=== PATIENT | male | born 1955 | race Caucasian/White ===

== ENCOUNTER 2017-05-10 13:00 | Outpatient (RCR) | payer MEDICARE, OTHER, SELFPAY ==
[2016-05-11 14:29] VITALS: BMI 43.3
[2017-04-10 01:15] VITALS: BP 100/60; PULSE 77; RESP 18; TEMP 36.6; O2SAT 95; BMI 44.4
--- NOTE | 2017-05-08 10:46 | PCM.PR.DAT ---
Dates of Coverage Times for Dates Of Coverage; All dates of coverage are for physician supervision/medical insurance clerk for during the times of 08:00 AM through 4:30 PM. Effective Dec 09, 2012 our hours will be changing to 8:00 to 4:30 on Monday, Monday and Monday. First Date of the Month: 05/11/17 Last Date of the Month: 06/07/17
--- NOTE | 2017-05-08 10:56 | PR.ITP_ITS ---
Exercise - 90-Day Assessment - Exercise Prescription Mode:: Treadmill, Airdyne, NuStep, Arm Ergometer Frequency (x/week): 3 Duration:: 30 Aerobic Exercise [30-60 min 3-7x/week]:: Met Target heart rate: 120 - 112-120 Max HR 122 Penelope MET Level:: 4 - Home Exercise Home Exercise?: Yes Frequency:: daily Time (minutes):: 30 - walking/uses oxygen Disease Management - 90-Day - Hypoxemia Reassessment: Demonstrates knowledge of O2 Rx at rest, Demonstrates knowledge of O2 Rx with exercise, Using O2 as prescribed, Has home O2 as prescribed, Uses port O2 as prescribed - Medications Medication list reviewed:: Yes Taking medications 100% of the time:: Met Medication reassessment: Yes Pt demonstrates correct technique timing for MDI - verbalizes proper order of medication use, Yes Pt demonstrates correct technique timing for DPI, Yes Pt demonstrates correct technique timing for NEB, Yes Pt demonstrates correct technique timing for spacer - demonstrastes proper use of spacer device - Bronchial Hygiene Bronchial Hygiene Plan: Yes Pt demonstrates correctly for effective cough - returned demonstration hill cough, Yes Pt demo correct for device - return demonstration use of SMI and PEP Therapy devices, Yes Pt demo correct for sputum management - returned demonstration use of acapella, Yes Pt demo correct for improved hydration - increased water intake with caution for edema, Yes Pt demo correct for hand hygiene - proper use of good hand hygiene, Yes Pt demo correct for verbalize when to call MD - verbalizes signs symptoms to notify physician Psychosocial - 90-Day - Assessment Depression reassess: Management of stress: Met, Management of depression: Met, Practicing interventions: Met Tobacco - 90-Day Assessment - Program Goals Tobacco Program Goals: Complete smoking cessation. Attend education classes. Improve Knowledge Test score - Stage of Change Stages of Change:: Action - Learning Barriers Learning Barriers: Participates in education, Change in behavior - positive behavioral changes, walking more, montioring signs symptoms of issues to prevent problems. - Family Support Do you have family support?: Yes - Tobacco Use Tobacco Use: Non-smoker Do you use smokeless tobacco?: No - Intervention Smoking Cessation Referral:: No Individual Education/Counseling:: No Education Schedule Given:: Yes - Education Gave Education Materials For:: Pulmonary Disease, Risk Factors, Breathing Techniques, Medical Compliance, Pulmonary A&P, Exacerbation Signs & Symptoms, Stress & Relaxation Nutrition/Wt Mgmt - 90-Day - Weight Management Weight Assessment:: Wt stable Weight:: 136.985 kg - Patient could benefit from Structured weight loss and Diabetic Support to better manage his diabetes. HE has been referred to [facility] Weight Goals Progress:: Goal met Patient Health Questionnaire 90-Day Re-eval Assessment 1. Little interest or pleasure in doing things: Not at all 2. Feeling down, depressed, or hopeless: Not at all 3. Trouble falling or staying asleep, or sleeping too much: Several days 4. Feeling tired or having little energy: Several days 5. Poor appetite or overeating: Several days 6. Feeling bad about yourself -- or that you are a failure or have let yourself or your family down: Not at all 7. Trouble concentrating on things, such as reading the newspaper or watching television: Not at all 8. Moving or speaking so slowly that other people could have noticed. Or the opposite - being so fidgety or restless that you have been moving around a lot more than usual: Not at all 9. Thoughts that you would be better off , or of hurting yourself in some way: Not at all How difficult have these problems made it for you to do your work, take care of things at home, or get along with other people?: Not difficult at all Total Score: 3 COPD Knowledge Test Discharge COPD is a lung disease that:: Makes it hard to breathe & gets worse over time In the [place] the term COPD describes 2 main lung conditions:: Emphysema & chronic bronchitis The most common lung irritant that causes COPD is:: Cigarette smoke Common signs and symptoms of COPD include:: An ongoing cough/cough that produces a large amount of mucus, & SOB If you have COPD, what steps can you take?: All of the above Swelling of the ankles is common in COPD:: False Fatigue [tiredness] is common in COPD:: True Wheezing is common in COPD:: True Crushing chest pain is common in COPD:: False Rapid weight loss is common in COPD:: False Breathlessness is a normal response to exercise: True Exercise should be avoided if it makes you short of breath: False All bronchodilators act within 10 minutes: True A spacer device increases the medication to the lungs: True Annual flu vaccine is recommended for pts w/lung disease: True COPD Knowledge Test Total Score:: 14 COPD Assessment Test [CAT] - Questions Never cough = 0, Cough all the time = 5: 2 No phlegm = 0, Chest full of phlegm = 5: 3 No chest tightness = 0, Chest very tight = 5: 2 No breathless w/exertion = 0, Very breathless w/exertion = 5: 4 No limitations w/activity = 0, Very limited w/activity = 5: 3 Confident leaving home = 0, Not at all confident = 5: 2 Sleep soundly = 0, Don't sleep soundly = 5: 3 Lots of energy = 0, No energy at all = 5: 3 Total CAT score:: 22 Self-Efficacy 90-Day Re-eval Assessment We would like to know how confident you are in doing certain activities. Please select your confidence level for:: Select your confidence level for the following using the scale 1-10 where 1 is not at all confident and 10 is totally confident. Your score is the average of all 6 responses. Fatigue: How confident are you that you can keep the fatigue caused by your disease from interfering with the things you want to do? Select Number: 8 Physical Discomfort or Pain: How confident are you that you can keep the physical discomfort or pain of your disease from interfering with the things you want to do? Select Number: 10 Emotional Distress: How confident are you that you can keep the emotional distress caused by your disease from interfering with the things you want to do? Select Number: 9 Other Symptoms or Health Problems: How confident are you that you can keep other symptoms or health problems from interfering with the things you want to do? Select Number: 10 Different Tasks and Activities: How confident are you that you can do the different tasks and activities needed to manage your health condition so as to reduce your need to see a doctor? Select Number: 10 Medication: How confident are you that you can do things other than just taking medication to reduce how much your illness affects your everyday life? Select Number: 10 Total Score:: 9 Nutrition Survey - Nutrition Survey Instructions Scoring Instructions: Scoring is as follows: Yes = 1 points. No = 0 point. Patient score that is >/=12 is considered to be at potential nutritional risk and could benefit from a referral to a registered dietitian. - Nutrition Survey Discharge Have you lost >10 lbs over the past 2 months without trying?: No Are you following a special diet at home for diabetes, low fat, or low salt?: Yes Are you interested in meeting with a dietitian for help understanding your diet? : Yes Do you eat less than 3 meals a day?: Yes Do you eat fatty meats (fernandez, sausage, ribs, etc), fried foods, desserts, large amounts of salad dressings, margarine, butter, or cheese most days?: Yes Do you have food allergies? [Enter types in comment field]: No Do you eat in restaurants more than 3 times a week?: No Do you season food with salt, seasoning salt, or garlic salt?: No Do you used canned, boxed, frozen meals, or soups, seasoning packets?: Yes Total Score:: 5
== END 2017-05-10 23:59 ==
LOC: PR 13:00
PROVIDERS: Family Provider Family Medicine Geriatric Medicine; PCP Family Medicine Geriatric Medicine; Visit Provider Internal Medicine Cardiovascular Disease
DX: J98.4 Other disorders of lung (principal); R06.02 Shortness of breath; Z95.5 Presence of coronary angioplasty implant and graft; E78.5 Hyperlipidemia, unspecified; I10 Essential (primary) hypertension; R06.09 Other forms of dyspnea; R04.2 Hemoptysis; R53.83 Other fatigue; G47.33 Obstructive sleep apnea (adult) (pediatric); E11.9 Type 2 diabetes mellitus without complications; R40.0 Somnolence; Z86.711 Personal history of pulmonary embolism
CPT/HCPCS: 97150; G0239

== ENCOUNTER 2017-05-18 14:51 | Outpatient (RCR) | payer MEDICARE, OTHER, SELFPAY ==
[2016-05-11 14:29] VITALS: BMI 43.3
== END 2017-06-07 23:59 ==
LOC: DC 14:51
PROVIDERS: Family Provider Family Medicine Geriatric Medicine; PCP Family Medicine Geriatric Medicine; Visit Provider Internal Medicine Cardiovascular Disease
DX: E11.9 Type 2 diabetes mellitus without complications (principal); Z71.3 Dietary counseling and surveillance
CPT/HCPCS: G0108

== ENCOUNTER → 2017-06-05 14:55 | Outpatient (CLI) | payer MEDICARE, OTHER, SELFPAY ==
[2016-05-11 14:29] VITALS: BMI 43.3
[2017-06-05 15:43] LABS: Absolute Lymphocyte Count 0.72 X10^3/ul (0.83-4.51); Absolute Neutrophil Count 5.2 X10^3/uL (2.0-7.7); Basophil# 0.02 X10^3/uL; Basophil% 0.3 % (0-1); Eosinophil# 0.14 X10^3/uL; Hematocrit 41.4 % (40-54); Hemoglobin 12.4 g/dl (13.0-16.5); Lymphocyte # 0.72 X10^3/ul (4.0); Lymphocyte % 10.2 % (19-41); Mean Corpuscular Hgb 23.8 pg (27.0-32.0); Mean Corpuscular Volume 79.6 fL (80-94); Mean Platelet Vol. 8.8 fl (6.2-12.0); Monocyte# 0.97 X10^3/uL; Monocyte% 13.8 % (0-10); Neutrophil # 5.18 X10^3/uL (2.7-7.7); Neutrophil % 73.6 % (47-70); Platelet Count 310 K/mm3 (150-450); RBC Distribution Width CV 18.6 % (11.6-14.6); RBC Distribution Width SD 53.1 fl (35.1-43.9)
[2017-06-05 15:49] LABS: POSITIVE COUNT NO; POSITIVE DIFFERENTIAL NO; POSITIVE MORPHOLOGY NO
[2017-06-05 16:14] LABS: AST(SGOT) 48 U/L (15-37); Alanine Aminotransfer ALT/SGPT 70 U/L (16-61); Albumin, Serum 3.9 g/dL (3.2-5.0); Alkaline Phosphatase 58 U/L (45-117); Anion Gap 8 (5-15); BUN 26 mg/dL (7-18); BUN/Creat Ratio 23.6 RATIO (10-20); Calcium,Total 10.7 mg/dL (8.5-10.1); Chloride 98 mmol/L (98-107); EST Glomerular Filtration Rate 72 mL/min (>60); Est Glom Filt Rate - Afr Amer 88 mL/min (>60); Globulin 4.1 g/dL (2.2-4.2); Glucose 102 mg/dL (74-106); Potassium 3.1 mmol/L (3.5-5.1); Sodium Level 137 mmol/L (136-145)
== END ==
PROVIDERS: Family Provider Family Medicine Geriatric Medicine; PCP Family Medicine Geriatric Medicine
DX: Z01.818 Encounter for other preprocedural examination (principal); R09.81 Nasal congestion; R22.0 Localized swelling, mass and lump, head; J34.2 Deviated nasal septum; R43.8 Other disturbances of smell and taste
CPT/HCPCS: 36415; 80053; 85025; 85610; 85730

== ENCOUNTER → 2017-06-09 13:53 | Outpatient (CLI) | payer MEDICARE, OTHER, SELFPAY ==
[2016-05-11 14:29] VITALS: BMI 43.3
[2017-06-09 15:01] LABS: Anion Gap 7 (5-15); BUN 20 mg/dL (7-18); Calcium,Total 10.4 mg/dL (8.5-10.1); Chloride 103 mmol/L (98-107); Creatinine, Serum 1.05 mg/dL (0.70-1.30); EST Glomerular Filtration Rate 76 mL/min (>60); Est Glom Filt Rate - Afr Amer 93 mL/min (>60); Glucose 129 mg/dL (74-106); Potassium 4.1 mmol/L (3.5-5.1); Sodium Level 141 mmol/L (136-145)
== END ==
PROVIDERS: Family Provider Family Medicine Geriatric Medicine; PCP Family Medicine Geriatric Medicine; Visit Provider Physician Assistant Medical
DX: E87.6 Hypokalemia (principal)
CPT/HCPCS: 36415; 80048

== ENCOUNTER 2017-06-10 11:37 | Observation (INO) | payer MEDICARE, OTHER, SELFPAY ==
[2016-05-11 14:29] VITALS: BMI 43.3
[2017-06-10] VITALS (15 sets, daily range): BP systolic 134–143; BP diastolic 70–82; PULSE 69–79; RESP 13–22; TEMP 36.1–36.7; O2SAT 95–99; BMI 40.4; BMI 40.5; BMI 44.6
--- NOTE | 2017-06-10 11:59 | EKG12_ITS ---
Test Reason : CP Blood Pressure : / mmHG Vent. Rate : 078 BPM Atrial Rate : 078 BPM P-R Int : 192 ms QRS Dur : 094 ms QT Int : 376 ms P-R-T Axes : 036 033 062 degrees QTc Int : 428 ms Normal sinus rhythm Septal infarct , age undetermined Abnormal ECG Confirmed by BAILEE PIZANO, NII ([id number]), department editor PRAVEEN CAMPBELL ([id number]) on 06/13/2017 3:51:46 PM Referred By: MARGO Confirmed By:NII MOROCHO MD
--- NOTE | 2017-06-10 11:59 | RAD_ITS ---
STUDY: X-RAY CHEST REASON FOR EXAM: Male, 61 years old. Increased shortness of breath and chest pain starting this morning. TECHNIQUE: Single AP portable view of the chest. COMPARISON: January 18, 2017. FINDINGS: Cardiac monitoring leads are present. There is moderate elevation of the right hemidiaphragm. There are perihilar interstitial consolidations. There is no demonstrated pleural abnormality. There is mild cardiac enlargement. Normal mediastinum and sue. There is prominence of the pulmonary hilar arteries with peripheral pulmonary vascular congestion. There is atherosclerotic calcification of the aortic arch with tortuosity. There is demineralization of the osseous structures. Normal visualized ribs, clavicles, and shoulders. There is no demonstrated abnormality of the visualized soft tissue structures of the upper abdomen. RAD/Chest 1 View (Portable) IMPRESSION: Mild cardiomegaly and pulmonary congestion. Electronically Signed: Susan Loera MD at 12:38 EST , Service support ,
--- NOTE | 2017-06-10 12:01 | ED.RN ---
[facility] [place] CONTACTED FOR HOME MEDICATION LIST
[2017-06-10] MEDS: Ipratropium/Albuterol Sulfate 3 ML AMPUL.NEB INHALATION (12:11)
[2017-06-10] MEDS: Aspirin 81 MG TAB.CHEW 324 MG PO (12:16)
[2017-06-10 12:36] LABS: Absolute Lymphocyte Count 1.52 X10^3/ul (0.83-4.51); Basophil# 0.02 X10^3/uL; Basophil% 0.2 % (0-1); Eosinophil# 0.18 X10^3/uL; Hematocrit 40.6 % (40-54); Lymphocyte # 1.52 X10^3/ul (4.0); Lymphocyte % 17.3 % (19-41); Mean Corp Hgb Conc 29.6 g/gl (32-36); Mean Corpuscular Hgb 24.3 pg (27.0-32.0); Mean Corpuscular Volume 82.4 fL (80-94); Mean Platelet Vol. 9.1 fl (6.2-12.0); Monocyte# 1.04 X10^3/uL; Monocyte% 11.8 % (0-10); Neutrophil # 6.02 X10^3/uL (2.7-7.7); Neutrophil % 68.4 % (47-70); Platelet Count 349 K/mm3 (150-450); RBC Distribution Width CV 19.3 % (11.6-14.6); Red Blood Count 4.93 M/mm3 (4.6-6.2); White Blood Count 8.8 K/mm3 (4.4-11.0)
[2017-06-10 12:37] LABS: POSITIVE COUNT NO; POSITIVE DIFFERENTIAL NO; POSITIVE MORPHOLOGY NO
[2017-06-10 12:44] LABS: D-Dimer Quantitative (DVT/PE) 0.33 FEU/ug/m (0.27-0.49)
[2017-06-10 12:56] LABS: Anion Gap 7 (5-15); BUN 20 mg/dL (7-18); Calcium,Total 9.8 mg/dL (8.5-10.1); Chloride 104 mmol/L (98-107); Creatinine, Serum 0.95 mg/dL (0.70-1.30); EST Glomerular Filtration Rate 86 mL/min (>60); Est Glom Filt Rate - Afr Amer 104 mL/min (>60); Estimated Creatinine Clearance 85.38 ml/min; Glucose 47 mg/dL (74-106); Potassium 3.6 mmol/L (3.5-5.1); Sodium Level 140 mmol/L (136-145)
[2017-06-10 13:54] LABS: BNP,B-Type NATRIURETIC PEPTIDE 116.6 pg/mL (0-100)
--- NOTE | 2017-06-10 14:30 | ED.DCSUM_ITS ---
- ER Visit Summary Date of Service: 06/10/17 Chief Complaint: [Chest pain and shortness of breath] History of Present Illness: The patient is a 61 M [presents to the emergency department with symptoms of chest pain shortness of breath that started around 5 :30 AM. Patient states that he started getting a smell of cigarettes coming from another apartment and he thinks that may have triggered it possibly. Patient states that he used an inhaler and did not get much relief. Patient then took 2 nitro which did not seem to help a whole lot and that is when he decided to come in and get evaluated. Patient has a history of a cardiac stent about 6 months ago. Patient also has a history of COPD and he has had history of PE in the past. Patient states that he scheduled to have a biopsy for some sort of a sinus mass to be done in 2 days and has been off of his Plavix since 23 May in anticipation of surgery which has been pushed back due to insurance reasons. Patient denies any recent travel or surgery. He denies any fever.] Physical Examination: [HEENT-PERRLA, EOMI. Cranial nerves II through XII grossly intact. TMs clear. Mucous membranes moist. No adenopathy. Cardiovascular-regular rate and rhythm without murmur or ectopy Lungs-diminished breath sounds bilaterally with some faint expiratory wheezes noted bilaterally. No accessory muscle use or retractions. Abdomen-normoactive bowel sounds, soft, nontender, no rebound or rigidity, no peritoneal signs. Extremities-intact ?4, normal range of motion, normal pulses, atraumatic] Test Results: [EKG obtained on arrival showed a sinus rhythm with a ventricular rate 78 bpm with an old septal infarct noted. When compared with prior EKG from January 2017 no new changes noted. CBC with differential was normal. Chemistries unremarkable. Troponin less than 0.02. D-dimer is normal 0.33. BNP was slightly elevated 116. Chest x-ray showed some cardiomegaly with some mild pulmonary congestion.] Emergency Department Course and Treatment: [Initially patient received aspirin on arrival emergency department and was given a DuoNeb aerosol. Patient started on Solu-Medrol 125 mg IV.] Treatment Plan: [Patient's pressure initially improved with the breathing treatment but then returned and at this point case was discussed with hospitalist evaluate patient for admission] Disposition: [Admit] Impression: [Chest pain-rule out acute coronary syndrome COPD exacerbation] This note was generated with [employer] dictation software. It may contain incorrect words, spelling, and punctuation that were not noted in review of the chart prior to signing ED Disposition - Plan for ED Patient: Chief Complaint: Chest Pain Referrals: Nicho Beth Chi, MD [Primary Care Provider] -
[2017-06-10] MEDS: MethylPREDNISolone 125 MG/2 ML Vial IV (14:47)
--- NOTE | 2017-06-10 14:50 | NURSING ---
BS LOW ON LABS. PT PERSPIRING AND BLE CRAMPING PER PT. GIVEN JUICE ANS SNACK WITH PROTEIN
--- NOTE | 2017-06-10 15:10 | PCM.HP.STD ---
Problem List (1) Chronic hypoxemic respiratory failure Status: Chronic (2) FAVIAN (obstructive sleep apnea) Status: Chronic (3) History of pulmonary embolism Status: Resolved (4) Acquired left ventricular hypertrophy Status: Chronic (5) Hypertriglyceridemia Status: Chronic (6) Morbid obesity with BMI of 40.0-44.9, adult Status: Chronic (7) Status post insertion of drug-eluting stent into left anterior descending (LAD) artery Status: Chronic (8) CAD (coronary artery disease), kashia coronary artery Status: Chronic Qualifiers: (9) Type 2 diabetes mellitus Status: Chronic Qualifiers: (10) Hypertension Status: Chronic Qualifiers: (11) Hyperlipidemia Status: Chronic Qualifiers: (12) History of DVT (deep vein thrombosis) Status: Chronic (13) Osteoarthritis Status: Chronic Qualifiers: History of Present Illness Date of Admission: 06/10/17 Chief Complaint: Shortness of breath, chest tightness The patient is a 61 year old M who presents with shortness of breath and chest tightness which began early this morning around 5 AM. Patient states he has been off of one of his diuretics for the past few weeks due to low potassium. He states he has gained approximately 15 pounds over the past few weeks. He has increased lower extremity edema. Patient also states his neighboring apartment has been smoking which travels inside his apartment and he feels has contributed to his shortness of breath. Patient is scheduled for sinus biopsy 06/12/2017 with plans for further surgical intervention for sinus mass 06/15/2017. He has been off of his Plavix since 05/22/2017. Patient follows with Dr. Gracia who he states is aware that he has been off of Plavix during this time. He has continued to take aspirin. Patient denies recent illness. Denies cough, wheezing. Denies pain radiation. Denies dizziness, lightheadedness, palpitations. Patient has a past medical history of DVT/PE, osteoarthritis, hyperlipidemia, hypertension, type 2 diabetes mellitus, CAD status post PCI, morbid obesity, chronic hypoxic respiratory failure secondary to restrictive lung disease requiring intermittent home oxygen supplementation, obstructive sleep apnea, depression. Patient follows with Dr. Hawkins for FAVIAN/restrictive lung disease. Past Medical History Past Medical History (Chronic Problems): Chronic Problems (Last Reviewed 04/12/17 @ 14:09 by Phuong Rankin) Chronic hypoxemic respiratory failure (Chronic) FAVIAN (obstructive sleep apnea) (Chronic) Dyspnea on exertion (Chronic) Acquired left ventricular hypertrophy (Chronic) Abnormal chest xray (Chronic) Chest discomfort (Chronic) Near syncope (Chronic) Overweight (Chronic) Hypoxia (Chronic) Hypertriglyceridemia (Chronic) Morbid obesity with BMI of 40.0-44.9, adult (Chronic) Status post insertion of drug-eluting stent into left anterior descending (LAD) artery (Chronic) CAD (coronary artery disease), kashia coronary artery (Chronic) Type 2 diabetes mellitus (Chronic) Hypertension (Chronic) Hyperlipidemia (Chronic) History of DVT (deep vein thrombosis) (Chronic) Osteoarthritis (Chronic) Allergies No Known Allergies Allergy (Verified 06/10/17 11:37) Home Medications: Ambulatory Orders Medication Instructions Recorded Amlodipine [Norvasc] 10 mg PO DAILY 01/07/15 Aspirin [Aspirin, Baby] 81 mg PO DAILY@0800 01/07/15 Atorvastatin Calcium [Lipitor] 80 mg PO QHS 01/07/15 Furosemide [Lasix] 40 mg PO BID 01/07/15 Glimepiride [Amaryl] 4 mg PO BID 01/07/15 HydrALAZINE [Apresoline] 25 mg PO TID 01/07/15 Metformin HCl [Glucophage] 1,000 mg PO BIDCM 01/07/15 Metoprolol(XL)Succ [Toprol Xl 100 mg PO BID 01/07/15 (Beta Kenyon)] Multivitamins,Therapeutic 1 tab PO DAILY 05/10/16 [Multivitamin] metolazone 2.5 mg tablet 2.5 mg PO SUTH 05/10/16 Albuterol IH (ProAir) [Proair Hfa] 2 puff INHALATION Q4H PRN PRN 01/18/17 Gemfibrozil [Lopid] 600 mg PO BIDAC 01/18/17 Lorazepam [Ativan] 0.5 mg PO DAILY PRN PRN 01/18/17 Paroxetine HCl [Paxil] 40 mg PO QHS 01/18/17 Ranolazine [Ranexa] 500 mg PO BID 01/18/17 Nitroglycerin [Nitrostat] 0.4 mg SUBLINGUAL Q5M PRN #10 tab 01/19/17 Oxymetazoline 0.05% [Afrin (BKC)] 1 spray NASAL BID #1 spray.btl 02/05/17 Sodium Chloride [Saline Nasal Mist] 1 spray NS TID #2 mist 02/05/17 clopidogrel 75 mg tablet 75 mg PO DAILY #90 tab 05/09/17 potassium chloride ER 20 mEq 40 meq PO TID tab 06/06/17 tablet,extended release Citalopram Hydrobromide 20 mg PO DAILY 06/10/17 [Citalopram HBr] Dapagliflozin Propanediol [Farxiga] 10 mg PO DAILY 06/10/17 Insulin Regular, Human [Humulin R 200 unit SQ BID 06/10/17 U-500 Kwikpen] Sodium Chloride 0.65% [Lutz Nasal 1 spray NASAL PRN PRN 06/10/17 [place]] Surgical History: - - PCI, bilateral total hip repair, Achilles tendon repair left side, left arthroscopic knee surgery, ex lap with bowel resection secondary to perforation, tonsillectomy, appendectomy. Psychiatric History: Anxiety, Depression Lives: Alone Smoking Status: Never smoker Tobacco Use: Non-smoker Alcohol: Sober Drugs: None - *Family History Maternal History Items: Cancer - Colon cancer., Diabetes, High Cholesterol, Heart Disease, Hypertension Paternal History Items: Diabetes, High Cholesterol, Heart Disease, Hypertension Review of Systems Constitutional: Denies: Chills, Fever, Weight Change HEENT: Reports: Sinus Congestion, Sinus Drainage Cardiovascular: Reports: Chest Tightness, Edema, Orthopnea. Denies: Chest Pain, Palpitations, Syncope Respiratory: Reports: Shortness of Breath. Denies: Cough, Sputum production, Wheezing Gastrointestinal: Denies: Abdominal Pain, Diarrhea, Nausea, Vomiting Genitourinary: Denies: Dysuria Musculoskeletal: Denies: Joint Pain, Joint Tenderness Skin: Denies: Rash, Wounds Neurological: Denies: Numbness, Tingling, Focal weakness Psychiatric: Reports: Depression Hematologic/ Lymphatic: Denies: Easy Bruising, Easy Bleeding VTE Information - Inpt Only VTE Present on Admission: No VTE Mechan Device Prophylaxis: None VTE Pharm Prophylaxis ordered?: Yes - Physical Exam General: Alert, Oriented x3, Cooperative, No apparent distress HEENT: Atraumatic, PERRLA, EOMI, Normocephalic Neck: Supple, No JVD, Negative Carotid Bruits Lungs: Diminished, - - Fine crackles bilateral bases Cardiovascular: Regular rate, Regular Rhythm, Normal S1, Normal S2, No murmurs Abdomen: Bowel Sounds Present, Soft, Non Tender, Non-Distended, Obese Extremities: No clubbing, No cyanosis, Edema - +2 BLLE Skin: No rashes, No breakdown Musculoskeletal: No Tenderness to Palpation of Joints or Extremities Neurological: Cranial nerves II-XII grossly intact, Neuro grossly intact Psych/Mental Status: Normal Affect, Appropriate Vital Signs Temp Pulse Resp BP Pulse Ox 97.0 F L 70 14 141/81 H 96 06/10/17 14:55 06/10/17 15:01 06/10/17 15:01 06/10/17 15:01 06/10/17 15:01 Finger Stick Blood Glucose 49 Assessment/Plan 1. Acute on chronic diastolic CHF- Echocardiogram 09/30/2015 showed an EF of 65%, stage I diastolic dysfunction, RVSP 22 mmHg. Repeat echocardiogram. Cycle enzymes. BNP only mildly elevated, 116. CXR showed mild pulmonary congestion. Patient has +2 pitting BLLE. States he has gained about 15 lbs in the past few weeks. Strict I&O. Daily weight. Lasix 40mg IV Q8. EKG on admission without evidence of ischemia. Repeat EKG in a.m. 2. CAD status post PCI to the mid LAD May [address] Gracia. Patient follows with Dr. Gracia as outpatient. Continue aspirin, statin, beta-kenyon. Patient recently stopped Plavix due to plans for sinus intervention surgery next week. Per patient, Dr. Gracia aware of temporarily being off of plavix. Patient had a stress echo 01/18/2017 which showed no evidence of ischemia. 3. Type 2 diabetes mellitus-hold oral regimen. Hemoglobin A1c 02/02/2017 was 8.7%. Accu-Cheks before meals at bedtime. Continue Humulin R regimen. 4. Hypertension-stable, continue current regimen including amlodipine, Lasix, metoprolol. 5. Hyperlipidemia-continue atorvastatin and gemfibrozil. 6. History of PE/DVT-previously on Coumadin therapy which was discontinued January, due to significant epistaxis. Continue aspirin, Plavix. 7. Restrictive lung disease/FAVIAN/Chronic hypoxic respiratory failure-follows with Dr. Hawkins. PFTs 10/2016. On supplemental oxygen intermittently at home. States he is compliant with CPAP at bedtime. 8. OA- PT/OT. 9. Depression-continue home regimen of citalopram and fluoxetine. 10. Morbid obesity-nutrition consult. Diet and lifestyle modifications encouraged. DVT prophylaxis-Lovenox subcu. This patient was seen by MAVERICK Bryan under the supervision of Dr. Gregory.
--- NOTE | 2017-06-10 15:20 | HP.PCM_ITS ---
Problem List (1) Chronic hypoxemic respiratory failure Status: Chronic (2) FAVIAN (obstructive sleep apnea) Status: Chronic (3) History of pulmonary embolism Status: Resolved (4) Acquired left ventricular hypertrophy Status: Chronic (5) Hypertriglyceridemia Status: Chronic (6) Morbid obesity with BMI of 40.0-44.9, adult Status: Chronic (7) Status post insertion of drug-eluting stent into left anterior descending ( LAD) artery Status: Chronic (8) CAD (coronary artery disease), [place] coronary artery Status: Chronic Qualifiers: (9) Type 2 diabetes mellitus Status: Chronic Qualifiers: (10) Hypertension Status: Chronic Qualifiers: (11) Hyperlipidemia Status: Chronic Qualifiers: (12) History of DVT (deep vein thrombosis) Status: Chronic (13) Osteoarthritis Status: Chronic Qualifiers: History of Present Illness Date of Admission: 06/10/17 Chief Complaint: Shortness of breath, chest tightness The patient is a 61 year old M who presents with shortness of breath and chest tightness which began early this morning around 5 AM. Patient states he has been off of one of his diuretics for the past few weeks due to low potassium. He states he has gained approximately 15 pounds over the past few weeks. He has increased lower extremity edema. Patient also states his neighboring apartment has been smoking which travels inside his apartment and he feels has contributed to his shortness of breath. Patient is scheduled for sinus biopsy 06/12/2017 with plans for further surgical intervention for sinus mass 06/15. He has been off of his Plavix since 05/22/2017. Patient follows with Dr. Gracia who he states is aware that he has been off of Plavix during this time. He has continued to take aspirin. Patient denies recent illness. Denies cough, wheezing. Denies pain radiation. Denies dizziness, lightheadedness, palpitations. Patient has a past medical history of DVT/PE, osteoarthritis, hyperlipidemia, hypertension, type 2 diabetes mellitus, CAD status post PCI, morbid obesity, chronic hypoxic respiratory failure secondary to restrictive lung disease requiring intermittent home oxygen supplementation, obstructive sleep apnea, depression. Patient follows with Dr. Hawkins for FAVIAN/ restrictive lung disease. Past Medical History Past Medical History (Chronic Problems): Chronic Problems (Last Reviewed 04/12/17 @ 14:09 by Phuong Rankin) Chronic hypoxemic respiratory failure (Chronic) FAVIAN (obstructive sleep apnea) (Chronic) Dyspnea on exertion (Chronic) Acquired left ventricular hypertrophy (Chronic) Abnormal chest xray (Chronic) Chest discomfort (Chronic) Near syncope (Chronic) Overweight (Chronic) Hypoxia (Chronic) Hypertriglyceridemia (Chronic) Morbid obesity with BMI of 40.0-44.9, adult (Chronic) Status post insertion of drug-eluting stent into left anterior descending (LAD) artery (Chronic) CAD (coronary artery disease), [place] coronary artery (Chronic) Type 2 diabetes mellitus (Chronic) Hypertension (Chronic) Hyperlipidemia (Chronic) History of DVT (deep vein thrombosis) (Chronic) Osteoarthritis (Chronic) Allergies No Known Allergies Allergy (Verified 06/10/17 11:37) Home Medications: Ambulatory Orders Medication Instructions Recorded Amlodipine [Norvasc] 10 mg PO DAILY 01/07/15 Aspirin [Aspirin, Baby] 81 mg PO DAILY@0800 01/07/15 Atorvastatin Calcium [Lipitor] 80 mg PO QHS 01/07/15 Furosemide [Lasix] 40 mg PO BID 01/07/15 Glimepiride [Amaryl] 4 mg PO BID 01/07/15 HydrALAZINE [Apresoline] 25 mg PO TID 01/07/15 Metformin HCl [Glucophage] 1,000 mg PO BIDCM 01/07/15 Metoprolol(XL)Succ [Toprol Xl 100 mg PO BID 01/07/15 (Beta [place])] Multivitamins,Therapeutic 1 tab PO DAILY 05/10/16 [Multivitamin] metolazone 2.5 mg tablet 2.5 mg PO SUTH 05/10/16 Albuterol IH (ProAir) [Proair Hfa] 2 puff INHALATION Q4H PRN PRN 01/18/17 Gemfibrozil [Lopid] 600 mg PO BIDAC 01/18/17 Lorazepam [Ativan] 0.5 mg PO DAILY PRN PRN 01/18/17 Paroxetine HCl [Paxil] 40 mg PO QHS 01/18/17 Ranolazine [Ranexa] 500 mg PO BID 01/18/17 Nitroglycerin [Nitrostat] 0.4 mg SUBLINGUAL Q5M PRN #10 tab 01/19/17 Oxymetazoline 0.05% [Afrin (BKC)] 1 spray NASAL BID #1 spray.btl 02/05/17 Sodium Chloride [Saline Nasal Mist] 1 spray NS TID #2 mist 02/05/17 clopidogrel 75 mg tablet 75 mg PO DAILY #90 tab 05/09/17 potassium chloride ER 20 mEq 40 meq PO TID tab 06/06/17 tablet,extended release Citalopram Hydrobromide 20 mg PO DAILY 06/10/17 [Citalopram HBr] Dapagliflozin Propanediol [Farxiga] 10 mg PO DAILY 06/10/17 Insulin Regular, Human [Humulin R 200 unit SQ BID 06/10/17 U-500 Kwikpen] Sodium Chloride 0.65% [[place] Nasal 1 spray NASAL PRN PRN 06/10/17 [place]] Surgical History: - - PCI, bilateral total hip repair, Achilles tendon repair left side, left arthroscopic knee surgery, ex lap with bowel resection secondary to perforation, tonsillectomy, appendectomy. Psychiatric History: Anxiety, Depression Lives: Alone Smoking Status: Never smoker Tobacco Use: Non-smoker Alcohol: Sober Drugs: None - *Family History Maternal History Items: Cancer - Colon cancer., Diabetes, High Cholesterol, Heart Disease , Hypertension Paternal History Items: Diabetes, High Cholesterol, Heart Disease, Hypertension Review of Systems Constitutional: Denies: Chills, Fever, Weight Change HEENT: Reports: Sinus Congestion, Sinus Drainage Cardiovascular: Reports: Chest Tightness, Edema, Orthopnea. Denies: Chest Pain , Palpitations, Syncope Respiratory: Reports: Shortness of Breath. Denies: Cough, Sputum production, Wheezing Gastrointestinal: Denies: Abdominal Pain, Diarrhea, Nausea, Vomiting Genitourinary: Denies: Dysuria Musculoskeletal: Denies: Joint Pain, Joint Tenderness Skin: Denies: Rash, Wounds Neurological: Denies: Numbness, Tingling, Focal weakness Psychiatric: Reports: Depression Hematologic/ Lymphatic: Denies: Easy Bruising, Easy Bleeding VTE Information - Inpt Only VTE Present on Admission: No VTE Mechan Device Prophylaxis: None VTE Pharm Prophylaxis ordered?: Yes - Physical Exam General: Alert, Oriented x3, Cooperative, No apparent distress HEENT: Atraumatic, PERRLA, EOMI, Normocephalic Neck: Supple, No JVD, Negative Carotid Bruits Lungs: Diminished, - - Fine crackles bilateral bases Cardiovascular: Regular rate, Regular Rhythm, Normal S1, Normal S2, No murmurs Abdomen: Bowel Sounds Present, Soft, Non Tender, Non-Distended, Obese Extremities: No clubbing, No cyanosis, Edema - +2 BLLE Skin: No rashes, No breakdown Musculoskeletal: No Tenderness to Palpation of Joints or Extremities Neurological: Cranial nerves II-XII grossly intact, Neuro grossly intact Psych/Mental Status: Normal Affect, Appropriate Vital Signs Temp Pulse Resp BP Pulse Ox 97.0 F L 70 14 141/81 H 96 06/10/17 14:55 06/10/17 15:01 06/10/17 15:01 06/10/17 15:01 06/10/17 15:01 Finger Stick Blood Glucose 49 Assessment/Plan 1. Acute on chronic diastolic CHF- Echocardiogram 09/30/2015 showed an EF of 65% , stage I diastolic dysfunction, RVSP 22 mmHg. Repeat echocardiogram. Cycle enzymes. BNP only mildly elevated, 116. CXR showed mild pulmonary congestion. Patient has +2 pitting BLLE. States he has gained about 15 lbs in the past few weeks. Strict I&O. Daily weight. Lasix 40mg IV Q8. EKG on admission without evidence of ischemia. Repeat EKG in a.m. 2. CAD status post PCI to the mid LAD May [address] Gracia. Patient follows with Dr. Gracia as outpatient. Continue aspirin, statin, beta-kenyon. Patient recently stopped Plavix due to plans for sinus intervention surgery next week. Per patient, Dr. Gracia aware of temporarily being off of plavix. Patient had a stress echo 01/18/2017 which showed no evidence of ischemia. 3. Type 2 diabetes mellitus-hold oral regimen. Hemoglobin A1c 02/02/2017 was 8.7%. Accu-Cheks before meals at bedtime. Continue Humulin R regimen. 4. Hypertension-stable, continue current regimen including amlodipine, Lasix, metoprolol. 5. Hyperlipidemia-continue atorvastatin and gemfibrozil. 6. History of PE/DVT-previously on Coumadin therapy which was discontinued January, due to significant epistaxis. Continue aspirin, Plavix. 7. Restrictive lung disease/FAVIAN/Chronic hypoxic respiratory failure-follows with Dr. Hawkins. PFTs 10/2016. On supplemental oxygen intermittently at home. States he is compliant with CPAP at bedtime. 8. OA- PT/OT. 9. Depression-continue home regimen of citalopram and fluoxetine. 10. Morbid obesity-nutrition consult. Diet and lifestyle modifications encouraged. DVT prophylaxis-Lovenox subcu. This patient was seen by MAVERICK Bryan under the supervision of Dr. Gregory.
--- NOTE | 2017-06-10 15:26 | NURSING ---
BS 70. PT ASYMPTOMATIC
[2017-06-10 15:36] LABS: Bedside Glucose 70 mg/dL (70-110)
[2017-06-10 15:36] LABS: Bedside Glucose 49 mg/dL (70-110)
[2017-06-10] MEDS: Gemfibrozil 600 MG Tablet PO (17:32)
[2017-06-10] MEDS: 0.9% NaCl Peripheral Flush Adult/Peds IV (21:18)
[2017-06-10] MEDS: Oxymetazoline 0.05% 1 SPRAY SPRAY.BTL NASAL (21:18)
[2017-06-10] MEDS: Sodium Chloride 0.65% 1 SPRAY SPRAY.BTL NASAL (21:18)
[2017-06-10] MEDS: Atorvastatin Calcium 80 MG Tablet PO (21:20)
[2017-06-10] MEDS: Furosemide 40 MG/4 ML Vial IV (21:20)
[2017-06-10] MEDS: Ranolazine 500 MG Tablet PO (21:21)
[2017-06-10] MEDS: Metoprolol(XL)Succ 100 MG Tablet PO (21:21)
[2017-06-10 21:36] LABS: Bedside Glucose 211 mg/dL (70-110)
[2017-06-11] VITALS (13 sets, daily range): BP systolic 124–136; BP diastolic 60–73; PULSE 68–75; RESP 18–20; TEMP 36.6–36.8; O2SAT 94–99
[2017-06-11 03:49] LABS: Anion Gap 10 (5-15); BUN 22 mg/dL (7-18); BUN/Creat Ratio 20.2 RATIO (10-20); Calcium,Total 9.9 mg/dL (8.5-10.1); Chloride 103 mmol/L (98-107); Creatinine, Serum 1.09 mg/dL (0.70-1.30); EST Glomerular Filtration Rate 73 mL/min (>60); Est Glom Filt Rate - Afr Amer 89 mL/min (>60); Estimated Creatinine Clearance 74.41 ml/min; Glucose 225 mg/dL (74-106); Potassium 4.4 mmol/L (3.5-5.1); Sodium Level 140 mmol/L (136-145)
[2017-06-11] MEDS: Enoxaparin 40 MG/0.4 ML Syringe SC (05:07)
[2017-06-11] MEDS: 0.9% NaCl Peripheral Flush Adult/Peds IV (05:07)
[2017-06-11] MEDS: Furosemide 40 MG/4 ML Vial IV ×2 (05:07→13:23)
[2017-06-11] MEDS: Sodium Chloride 0.65% 1 SPRAY SPRAY.BTL NASAL (05:07)
--- NOTE | 2017-06-11 05:55 | EKG12_ITS ---
Test Reason : AM EKG Blood Pressure : / mmHG Vent. Rate : 073 BPM Atrial Rate : 073 BPM P-R Int : 228 ms QRS Dur : 094 ms QT Int : 382 ms P-R-T Axes : 052 038 038 degrees QTc Int : 420 ms Sinus rhythm with 1st degree A-V block with occasional Premature ventricular complexes Septal infarct , age undetermined Abnormal ECG When compared with ECG of 10-JUN-2017 11:39, MANUAL COMPARISON REQUIRED, DATA IS UNCONFIRMED Confirmed by BAILEE PIZANO, NII ([id number]), acquisitions editor PRAVEEN CAMPBELL ([id number]) on 06/14/2017 1:45:38 PM Referred By: ALVARADO Confirmed By:NII MOROCHO MD
[2017-06-11 06:41] LABS: Bedside Glucose 199 mg/dL (70-110)
[2017-06-11] MEDS: Gemfibrozil 600 MG Tablet PO (09:21)
[2017-06-11] MEDS: Multivitamins,Therapeutic Tablet 1 TABLET PO (09:22)
[2017-06-11] MEDS: Aspirin 81 MG TAB.CHEW PO (09:22)
[2017-06-11] MEDS: Oxymetazoline 0.05% 1 SPRAY SPRAY.BTL NASAL (09:24)
[2017-06-11] MEDS: Citalopram 20 MG Tablet PO (09:25)
[2017-06-11] MEDS: Metoprolol(XL)Succ 100 MG Tablet PO (09:25)
[2017-06-11] MEDS: Ranolazine 500 MG Tablet PO (09:25)
[2017-06-11] MEDS: Metolazone 2.5 MG Tablet PO (09:27)
[2017-06-11] MEDS: amLODIPine 10 MG Tablet PO (11:16)
[2017-06-11 11:21] LABS: Bedside Glucose 255 mg/dL (70-110)
--- NOTE | 2017-06-11 13:17 | PCM.DC ---
You will use the following diet at home:: Calorie/Carbohydrate Controlled (specify 1200, 1400, etc), Cardiac Discharge Activity: Return to Normal Activity Call your doctor if you observe: Shortness of breath, Dizziness, Fainting spells, Chest pain, Increased palpitations (irregular heartbeat) Additional Instructions: You will take lasix 80mg twice daily for 3 days (06/12/17-06/14/17) and then resume your home regimen of lasix 40mg twice daily. Continue home metolazone regimen which you were given this morning. You will need to call Dr. Gracia office after recovery from your surgery to follow up with him or Stephanie in the office. Continue supplemental oxygen at home to maintain O2 at or above 90%. Keep lower extremities wrapped with LUCIAN wraps and elevate while sitting. Continue to hold plavix prior to surgery and resume as soon as cleared by surgery. Allergies/Adverse Reactions: Allergies No Known Allergies Allergy (Verified 06/10/17 11:37) Medications to take at Discharge Amlodipine [Norvasc] 10 mg PO DAILY 01/07/15 Aspirin [Aspirin, Baby] 81 mg PO DAILY@0800 01/07/15 Atorvastatin Calcium [Lipitor] 80 mg PO QHS 01/07/15 Furosemide [Lasix] 40 mg PO BID 01/07/15 Glimepiride [Amaryl] 4 mg PO BID 01/07/15 HydrALAZINE [Apresoline] 25 mg PO TID 01/07/15 Metformin HCl [Glucophage] 1,000 mg PO BIDCM 01/07/15 Metoprolol(XL)Succ [Toprol Xl (Beta [place])] 100 mg PO BID 01/07/15 Multivitamins,Therapeutic [Multivitamin] 1 tab PO DAILY 05/10/16 metolazone 2.5 mg tablet 2.5 mg PO SUTH 05/10/16 Albuterol IH (ProAir) [Proair Hfa] 2 puff INHALATION Q4H PRN PRN 01/18/17 Gemfibrozil [Lopid] 600 mg PO BIDAC 01/18/17 Lorazepam [Ativan] 0.5 mg PO DAILY PRN PRN 01/18/17 Paroxetine HCl [Paxil] 40 mg PO QHS 01/18/17 Ranolazine [Ranexa] 500 mg PO BID 01/18/17 Nitroglycerin [Nitrostat] 0.4 mg SUBLINGUAL Q5M PRN #10 tab 01/19/17 Oxymetazoline 0.05% [Afrin (BKC)] 1 spray NASAL BID #1 spray.btl 02/05/17 Sodium Chloride [Saline Nasal Mist] 1 spray NS TID #2 mist 02/05/17 clopidogrel 75 mg tablet 75 mg PO DAILY #90 tab 05/09/17 potassium chloride ER 20 mEq tablet,extended release 40 meq PO TID tab 06/06/17 Citalopram Hydrobromide [Citalopram HBr] 20 mg PO DAILY 06/10/17 Dapagliflozin Propanediol [Farxiga] 10 mg PO DAILY 06/10/17 Insulin Regular, Human [Humulin R U-500 Kwikpen] 200 unit SQ BID 06/10/17 Sodium Chloride 0.65% [[place] Nasal [place]] 1 spray NASAL PRN PRN 06/10/17 Furosemide [Lasix] 80 mg PO BIDLX #6 tab 06/11/17 The following prescriptions were given: Furosemide [Lasix] 80 mg PO BIDLX #6 tab Primary Care Physician: Nicho Beth Chi, MD [Primary Care Provider] - Please follow up with your Primary Care Physician in: 1-2 Weeks Please Follow Up With: Harinder Gracia MD - May see PA/SUPERVISOR BEEHIVE KILN When: 1 Week Proposed Discharge Date: 06/11/17
--- NOTE | 2017-06-11 13:23 | DCINST_ITS ---
You will use the following diet at home:: Calorie/Carbohydrate Controlled ( specify 1200, 1400, etc), Cardiac Discharge Activity: Return to Normal Activity Call your doctor if you observe: Shortness of breath, Dizziness, Fainting spells , Chest pain, Increased palpitations (irregular heartbeat) Additional Instructions: You will take lasix 80mg twice daily for 3 days (06/12/17 -06/14/17) and then resume your home regimen of lasix 40mg twice daily. Continue home metolazone regimen which you were given this morning. You will need to call Dr. Gracia office after recovery from your surgery to follow up with him or Stephanie in the office. Continue supplemental oxygen at home to maintain O2 at or above 90%. Keep lower extremities wrapped with LUCIAN wraps and elevate while sitting. Continue to hold plavix prior to surgery and resume as soon as cleared by surgery. Allergies/Adverse Reactions: Allergies No Known Allergies Allergy (Verified 06/10/17 11:37) Medications to take at Discharge Amlodipine [Norvasc] 10 mg PO DAILY 01/07/15 Aspirin [Aspirin, Baby] 81 mg PO DAILY@0800 01/07/15 Atorvastatin Calcium [Lipitor] 80 mg PO QHS 01/07/15 Furosemide [Lasix] 40 mg PO BID 01/07/15 Glimepiride [Amaryl] 4 mg PO BID 01/07/15 HydrALAZINE [Apresoline] 25 mg PO TID 01/07/15 Metformin HCl [Glucophage] 1,000 mg PO BIDCM 01/07/15 Metoprolol(XL)Succ [Toprol Xl (Beta [place])] 100 mg PO BID 01/07/15 Multivitamins,Therapeutic [Multivitamin] 1 tab PO DAILY 05/10/16 metolazone 2.5 mg tablet 2.5 mg PO SUTH 05/10/16 Albuterol IH (ProAir) [Proair Hfa] 2 puff INHALATION Q4H PRN PRN 01/18/17 Gemfibrozil [Lopid] 600 mg PO BIDAC 01/18/17 Lorazepam [Ativan] 0.5 mg PO DAILY PRN PRN 01/18/17 Paroxetine HCl [Paxil] 40 mg PO QHS 01/18/17 Ranolazine [Ranexa] 500 mg PO BID 01/18/17 Nitroglycerin [Nitrostat] 0.4 mg SUBLINGUAL Q5M PRN #10 tab 01/19/17 Oxymetazoline 0.05% [Afrin (BKC)] 1 spray NASAL BID #1 spray.btl 02/05/17 Sodium Chloride [Saline Nasal Mist] 1 spray NS TID #2 mist 02/05/17 clopidogrel 75 mg tablet 75 mg PO DAILY #90 tab 05/09/17 potassium chloride ER 20 mEq tablet,extended release 40 meq PO TID tab Citalopram Hydrobromide [Citalopram HBr] 20 mg PO DAILY 06/10/17 Dapagliflozin Propanediol [Farxiga] 10 mg PO DAILY 06/10/17 Insulin Regular, Human [Humulin R U-500 Kwikpen] 200 unit SQ BID 06/10/17 Sodium Chloride 0.65% [[place] Nasal [place]] 1 spray NASAL PRN PRN 06/10/17 Furosemide [Lasix] 80 mg PO BIDLX #6 tab 06/11/17 The following prescriptions were given: Furosemide [Lasix] 80 mg PO BIDLX #6 tab Primary Care Physician: Nicho Beth Chi, MD [Primary Care Provider] - Please follow up with your Primary Care Physician in: 1-2 Weeks Please Follow Up With: Harinder Gracia MD - May see PA/SOFTWARE APPLICATIONS ENGINEER When: 1 Week Proposed Discharge Date: 06/11/17
--- NOTE | 2017-06-11 13:23 | PCM.DC.SUM ---
Discharge Date and Diagnosis Date of Admission: 06/10/17 Date of Discharge: 06/11/17 - Primary Discharge Diagnosis 1. Acute on chronic diastolic CHF - Secondary Discharge Diagnosis Chronic Problems (Last Reviewed 04/12/17 @ 14:09 by Phuong Rankin) Chronic hypoxemic respiratory failure (Chronic) FAVIAN (obstructive sleep apnea) (Chronic) Dyspnea on exertion (Chronic) Acquired left ventricular hypertrophy (Chronic) Abnormal chest xray (Chronic) Chest discomfort (Chronic) Near syncope (Chronic) Overweight (Chronic) Hypoxia (Chronic) Hypertriglyceridemia (Chronic) Morbid obesity with BMI of 40.0-44.9, adult (Chronic) Status post insertion of drug-eluting stent into left anterior descending (LAD) artery (Chronic) CAD (coronary artery disease), [place] coronary artery (Chronic) Type 2 diabetes mellitus (Chronic) Hypertension (Chronic) Hyperlipidemia (Chronic) History of DVT (deep vein thrombosis) (Chronic) Osteoarthritis (Chronic) Hospital Course and Treatment Imaging Results: Diagnostic Data Chest X-Ray 06/10/17 11:59 IMPRESSION: Mild cardiomegaly and pulmonary congestion. Electronically Signed: Susan Loera MD at 12:38 EST , Service support , Operations: None Procedures: None Summary of Care Provided: Patient is a 61-year-old male admitted 06/10/2017 due to shortness of breath, chest tightness. He has a past medical history of DVT/PE, osteoarthritis, hyperlipidemia, hypertension, type 2 diabetes mellitus, CAD status post PCI, morbid obesity, chronic hypoxic respiratory failure secondary to restrictive lung disease requiring intermittent home oxygen supplementation, obstructive sleep apnea, depression. Patient follows with Dr. Hawkins for FAVIAN/restrictive lung disease. 1. Acute on chronic diastolic CHF- Echocardiogram 09/30/2015 showed an EF of 65%, stage I diastolic dysfunction, RVSP 22 mmHg. Recommend repeat echocardiogram as outpatient by cardiology. Troponin negative. BNP only mildly elevated, 116. CXR showed mild pulmonary congestion. Lower extremity edema improved. Patient denies further shortness of breath. Stable on room air at discharge however patient has oxygen at home available. He is to continue supplemental oxygen as needed to maintain O2 at or above 90%. He is down approximately 9 pounds since admission with IV Lasix. EKG on admission without evidence of ischemia. Patient will increase home Lasix to 80 mg twice daily for 3 days. He will then resume home regimen of 40 mg twice daily. He will follow-up with Dr. Gracia or Stephanie Schultz following his surgery, in approximately 1 week. Patient is to undergo sinus mass biopsy tomorrow, 06/12/2017. He is in to have further surgical intervention 06/15/17. 2. CAD status post PCI to the mid LAD May [address] Gracia. Patient follows with Dr. Gracia as outpatient. Continue aspirin, statin, beta-kenyon. Patient recently stopped Plavix due to plans for sinus intervention surgery next week. Per patient, Dr. Gracia aware of temporarily being off of plavix. Patient had a stress echo 01/18/2017 which showed no evidence of ischemia. Patient will resume Plavix as soon as possible when cleared by surgery. 3. Type 2 diabetes mellitus-Hemoglobin A1c 02/02/2017 was 8.7%. Resume home oral regimen and he will and are at discharge. 4. Hypertension-stable, continue current regimen including amlodipine, Lasix, metoprolol. 5. Hyperlipidemia-continue atorvastatin and gemfibrozil. 6. History of PE/DVT-previously on Coumadin therapy which was discontinued January, due to significant epistaxis. Continue aspirin, Plavix. 7. Restrictive lung disease/FAVIAN/Chronic hypoxic respiratory failure-follows with Dr. Hawkins. PFTs 10/2016. On supplemental oxygen intermittently at home. Patient has not recently been using CPAP due to current sinus issues. Recommend continued outpatient follow-up with pulmonary medicine and resuming CPAP as soon as able. 8. OA- PT/OT. 9. Depression-continue home regimen of citalopram and fluoxetine. 10. Morbid obesity-nutrition consult. Diet and lifestyle modifications encouraged. General: Alert, Oriented x3, Cooperative, No apparent distress HEENT: Atraumatic, PERRLA, EOMI, Normocephalic Neck: Supple, No JVD, Negative Carotid Bruits Lungs: Diminished, clear to auscultation Cardiovascular: Regular rate, Regular Rhythm, Normal S1, Normal S2, No murmurs Abdomen: Bowel Sounds Present, Soft, Non Tender, Non-Distended, Obese Extremities: No clubbing, No cyanosis, Edema +1 BLLE Skin: No rashes, No breakdown Musculoskeletal: No Tenderness to Palpation of Joints or Extremities Neurological: Cranial nerves II-XII grossly intact, Neuro grossly intact Psych/Mental Status: Normal Affect, Appropriate Patient seen and examined prior to discharge. Physical assessment as noted above. This patient was seen by MAVERICK Bryan under the supervision of Dr. Gregory. Discharge Diet: Low fat/ Low Cholesterol, Carb Control Diet Discharge Activity: Return to Normal Activity Call your doctor if you observe: Shortness of breath, Dizziness, Fainting spells, Chest pain, Increased palpitations (irregular heartbeat) Home Medications: Medications to take at Discharge Amlodipine [Norvasc] 10 mg PO DAILY 01/07/15 Aspirin [Aspirin, Baby] 81 mg PO DAILY@0800 01/07/15 Atorvastatin Calcium [Lipitor] 80 mg PO QHS 01/07/15 Furosemide [Lasix] 40 mg PO BID 01/07/15 Glimepiride [Amaryl] 4 mg PO BID 01/07/15 HydrALAZINE [Apresoline] 25 mg PO TID 01/07/15 Metformin HCl [Glucophage] 1,000 mg PO BIDCM 01/07/15 Metoprolol(XL)Succ [Toprol Xl (Beta [place])] 100 mg PO BID 01/07/15 Multivitamins,Therapeutic [Multivitamin] 1 tab PO DAILY 05/10/16 metolazone 2.5 mg tablet 2.5 mg PO SUTH 05/10/16 Albuterol IH (ProAir) [Proair Hfa] 2 puff INHALATION Q4H PRN PRN 01/18/17 Gemfibrozil [Lopid] 600 mg PO BIDAC 01/18/17 Lorazepam [Ativan] 0.5 mg PO DAILY PRN PRN 01/18/17 Paroxetine HCl [Paxil] 40 mg PO QHS 01/18/17 Ranolazine [Ranexa] 500 mg PO BID 01/18/17 Nitroglycerin [Nitrostat] 0.4 mg SUBLINGUAL Q5M PRN #10 tab 01/19/17 Oxymetazoline 0.05% [Afrin (BKC)] 1 spray NASAL BID #1 spray.btl 02/05/17 Sodium Chloride [Saline Nasal Mist] 1 spray NS TID #2 mist 02/05/17 clopidogrel 75 mg tablet 75 mg PO DAILY #90 tab 05/09/17 potassium chloride ER 20 mEq tablet,extended release 40 meq PO TID tab 06/06/17 Citalopram Hydrobromide [Citalopram HBr] 20 mg PO DAILY 06/10/17 Dapagliflozin Propanediol [Farxiga] 10 mg PO DAILY 06/10/17 Insulin Regular, Human [Humulin R U-500 Kwikpen] 200 unit SQ BID 06/10/17 Sodium Chloride 0.65% [[place] Nasal [place]] 1 spray NASAL PRN PRN 06/10/17 Furosemide [Lasix] 80 mg PO BIDLX #6 tab 06/11/17 Following Prescrptions Were Given to Patient: Furosemide [Lasix] 80 mg PO BIDLX #6 tab Primary Care Physician: Nicho Beth Chi, MD [Primary Care Provider] - Please follow up with your Primary Care Physician in: 1-2 Weeks Please Follow Up With: Harinder Gracia MD - May see PA/DIRECT OF REAL ESTATE When: 1 Week Additional Instructions: You will take lasix 80mg twice daily for 3 days (06/12/17-06/14/17) and then resume your home regimen of lasix 40mg twice daily. Continue home metolazone regimen which you were given this morning. You will need to call Dr. Gracia office after recovery from your surgery to follow up with him or Stephanie in the office. Continue supplemental oxygen at home to maintain O2 at or above 90%. Keep lower extremities wrapped with LUCIAN wraps and elevate while sitting. Continue to hold plavix prior to surgery and resume as soon as cleared by surgery. Disposition: Home Minutes spent on discharge:: 35 Patient Condition:: Stable Meaningful Use Info Meaningful Use Diagnoses (Choose all that apply): CHF - CHF LUCIAN/ARB ordered at discharge?: No Reason LUCIAN/ARB not ordered?: Allergy Documented LVEF (%): 65 - Tx not indicated. pEF
--- NOTE | 2017-06-11 13:34 | DS.PCM_ITS ---
Discharge Date and Diagnosis Date of Admission: 06/10/17 Date of Discharge: 06/11/17 - Primary Discharge Diagnosis 1. Acute on chronic diastolic CHF - Secondary Discharge Diagnosis Chronic Problems (Last Reviewed 04/12/17 @ 14:09 by Phuong Rankin) Chronic hypoxemic respiratory failure (Chronic) FAVIAN (obstructive sleep apnea) (Chronic) Dyspnea on exertion (Chronic) Acquired left ventricular hypertrophy (Chronic) Abnormal chest xray (Chronic) Chest discomfort (Chronic) Near syncope (Chronic) Overweight (Chronic) Hypoxia (Chronic) Hypertriglyceridemia (Chronic) Morbid obesity with BMI of 40.0-44.9, adult (Chronic) Status post insertion of drug-eluting stent into left anterior descending (LAD) artery (Chronic) CAD (coronary artery disease), barrow coronary artery (Chronic) Type 2 diabetes mellitus (Chronic) Hypertension (Chronic) Hyperlipidemia (Chronic) History of DVT (deep vein thrombosis) (Chronic) Osteoarthritis (Chronic) Hospital Course and Treatment Imaging Results: Diagnostic Data Chest X-Ray 06/10/17 11:59 IMPRESSION: Mild cardiomegaly and pulmonary congestion. Electronically Signed: Susan Loera MD at 12:38 EST , Service support , Operations: None Procedures: None Summary of Care Provided: Patient is a 61-year-old male admitted 06/10/2017 due to shortness of breath, chest tightness. He has a past medical history of DVT/PE, osteoarthritis, hyperlipidemia, hypertension, type 2 diabetes mellitus, CAD status post PCI, morbid obesity, chronic hypoxic respiratory failure secondary to restrictive lung disease requiring intermittent home oxygen supplementation, obstructive sleep apnea, depression. Patient follows with Dr. Hawkins for FAVIAN/restrictive lung disease. 1. Acute on chronic diastolic CHF- Echocardiogram 09/30/2015 showed an EF of 65% , stage I diastolic dysfunction, RVSP 22 mmHg. Recommend repeat echocardiogram as outpatient by cardiology. Troponin negative. BNP only mildly elevated, 116. CXR showed mild pulmonary congestion. Lower extremity edema improved. Patient denies further shortness of breath. Stable on room air at discharge however patient has oxygen at home available. He is to continue supplemental oxygen as needed to maintain O2 at or above 90%. He is down approximately 9 pounds since admission with IV Lasix. EKG on admission without evidence of ischemia. Patient will increase home Lasix to 80 mg twice daily for 3 days. He will then resume home regimen of 40 mg twice daily. He will follow-up with Dr. Gracia or Stephanie Schultz following his surgery, in approximately 1 week. Patient is to undergo sinus mass biopsy tomorrow, 06/12/2017. He is in to have further surgical intervention 06/15/17. 2. CAD status post PCI to the mid LAD May [address] Gracia. Patient follows with Dr. Gracia as outpatient. Continue aspirin, statin, beta-kenyon. Patient recently stopped Plavix due to plans for sinus intervention surgery next week. Per patient, Dr. Gracia aware of temporarily being off of plavix. Patient had a stress echo 01/18/2017 which showed no evidence of ischemia. Patient will resume Plavix as soon as possible when cleared by surgery. 3. Type 2 diabetes mellitus-Hemoglobin A1c 02/02/2017 was 8.7%. Resume home oral regimen and he will and are at discharge. 4. Hypertension-stable, continue current regimen including amlodipine, Lasix, metoprolol. 5. Hyperlipidemia-continue atorvastatin and gemfibrozil. 6. History of PE/DVT-previously on Coumadin therapy which was discontinued January, due to significant epistaxis. Continue aspirin, Plavix. 7. Restrictive lung disease/FAVIAN/Chronic hypoxic respiratory failure-follows with Dr. Hawkins. PFTs 10/2016. On supplemental oxygen intermittently at home. Patient has not recently been using CPAP due to current sinus issues. Recommend continued outpatient follow-up with pulmonary medicine and resuming CPAP as soon as able. 8. OA- PT/OT. 9. Depression-continue home regimen of citalopram and fluoxetine. 10. Morbid obesity-nutrition consult. Diet and lifestyle modifications encouraged. General: Alert, Oriented x3, Cooperative, No apparent distress HEENT: Atraumatic, PERRLA, EOMI, Normocephalic Neck: Supple, No JVD, Negative Carotid Bruits Lungs: Diminished, clear to auscultation Cardiovascular: Regular rate, Regular Rhythm, Normal S1, Normal S2, No murmurs Abdomen: Bowel Sounds Present, Soft, Non Tender, Non-Distended, Obese Extremities: No clubbing, No cyanosis, Edema +1 BLLE Skin: No rashes, No breakdown Musculoskeletal: No Tenderness to Palpation of Joints or Extremities Neurological: Cranial nerves II-XII grossly intact, Neuro grossly intact Psych/Mental Status: Normal Affect, Appropriate Patient seen and examined prior to discharge. Physical assessment as noted above. This patient was seen by MAVERICK Bryan under the supervision of Dr. Gregory. Discharge Diet: Low fat/ Low Cholesterol, Carb Control Diet Discharge Activity: Return to Normal Activity Call your doctor if you observe: Shortness of breath, Dizziness, Fainting spells , Chest pain, Increased palpitations (irregular heartbeat) Home Medications: Medications to take at Discharge Amlodipine [Norvasc] 10 mg PO DAILY 01/07/15 Aspirin [Aspirin, Baby] 81 mg PO DAILY@0800 01/07/15 Atorvastatin Calcium [Lipitor] 80 mg PO QHS 01/07/15 Furosemide [Lasix] 40 mg PO BID 01/07/15 Glimepiride [Amaryl] 4 mg PO BID 01/07/15 HydrALAZINE [Apresoline] 25 mg PO TID 01/07/15 Metformin HCl [Glucophage] 1,000 mg PO BIDCM 01/07/15 Metoprolol(XL)Succ [Toprol Xl (Beta Kenyon)] 100 mg PO BID 01/07/15 Multivitamins,Therapeutic [Multivitamin] 1 tab PO DAILY 05/10/16 metolazone 2.5 mg tablet 2.5 mg PO SUTH 05/10/16 Albuterol IH (ProAir) [Proair Hfa] 2 puff INHALATION Q4H PRN PRN 01/18/17 Gemfibrozil [Lopid] 600 mg PO BIDAC 01/18/17 Lorazepam [Ativan] 0.5 mg PO DAILY PRN PRN 01/18/17 Paroxetine HCl [Paxil] 40 mg PO QHS 01/18/17 Ranolazine [Ranexa] 500 mg PO BID 01/18/17 Nitroglycerin [Nitrostat] 0.4 mg SUBLINGUAL Q5M PRN #10 tab 01/19/17 Oxymetazoline 0.05% [Afrin (BKC)] 1 spray NASAL BID #1 spray.btl 02/05/17 Sodium Chloride [Saline Nasal Mist] 1 spray NS TID #2 mist 02/05/17 clopidogrel 75 mg tablet 75 mg PO DAILY #90 tab 05/09/17 potassium chloride ER 20 mEq tablet,extended release 40 meq PO TID tab Citalopram Hydrobromide [Citalopram HBr] 20 mg PO DAILY 06/10/17 Dapagliflozin Propanediol [Farxiga] 10 mg PO DAILY 06/10/17 Insulin Regular, Human [Humulin R U-500 Kwikpen] 200 unit SQ BID 06/10/17 Sodium Chloride 0.65% [[place] Nasal [place]] 1 spray NASAL PRN PRN 06/10/17 Furosemide [Lasix] 80 mg PO BIDLX #6 tab 06/11/17 Following Prescrptions Were Given to Patient: Furosemide [Lasix] 80 mg PO BIDLX #6 tab Primary Care Physician: Nicho Beth Chi, MD [Primary Care Provider] - Please follow up with your Primary Care Physician in: 1-2 Weeks Please Follow Up With: Harinder Gracia MD - May see PA/DIRECTOR TRANSLATIONAL When: 1 Week Additional Instructions: You will take lasix 80mg twice daily for 3 days (06/12/17-06/14/17) and then resume your home regimen of lasix 40mg twice daily. Continue home metolazone regimen which you were given this morning. You will need to call Dr. Gracia office after recovery from your surgery to follow up with him or Stephanie in the office. Continue supplemental oxygen at home to maintain O2 at or above 90%. Keep lower extremities wrapped with LUCIAN wraps and elevate while sitting. Continue to hold plavix prior to surgery and resume as soon as cleared by surgery. Disposition: Home Minutes spent on discharge:: 35 Patient Condition:: Stable Meaningful Use Info Meaningful Use Diagnoses (Choose all that apply): CHF - CHF LUCIAN/ARB ordered at discharge?: No Reason LUCIAN/ARB not ordered?: Allergy Documented LVEF (%): 65 - Tx not indicated. pEF
== END 2017-06-11 13:59 | disposition home or self-care (01) ==
LOC: ED 13:12 → PCU 14:38
PROVIDERS: Nurse Practitioner Family; Admitting Provider Internal Medicine; Emergency Provider Emergency Medicine; Family Provider Family Medicine Geriatric Medicine; PCP Family Medicine Geriatric Medicine; Visit Provider Internal Medicine
DX: I11.0 Hypertensive heart disease with heart failure (principal); I50.33 Acute on chronic diastolic (congestive) heart failure; E11.9 Type 2 diabetes mellitus without complications; G47.33 Obstructive sleep apnea (adult) (pediatric); R94.31 Abnormal electrocardiogram [ECG] [EKG]; J44.9 Chronic obstructive pulmonary disease, unspecified; J96.11 Chronic respiratory failure with hypoxia; I25.10 Atherosclerotic heart disease of native coronary artery without angina pectoris; E66.01 Morbid (severe) obesity due to excess calories; E78.5 Hyperlipidemia, unspecified; F32.9 Major depressive disorder, single episode, unspecified; M19.90 Unspecified osteoarthritis, unspecified site; Z86.711 Personal history of pulmonary embolism; Z79.02 Long term (current) use of antithrombotics/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; Z99.81 Dependence on supplemental oxygen; Z68.41 Body mass index [BMI] 40.0-44.9, adult; Z71.3 Dietary counseling and surveillance; Z86.718 Personal history of other venous thrombosis and embolism; Z79.899 Other long term (current) drug therapy; Z79.82 Long term (current) use of aspirin; Z79.4 Long term (current) use of insulin
CPT/HCPCS: 36415; 71045; 80048; 82962; 83880; 84484; 85025; 85379; 93005; 94640; 96372; 96374; 96375; 96376; 99218; 99285; A4216; G0378; J1940

== ENCOUNTER → 2017-06-14 16:40 | Outpatient (CLI) | payer MEDICARE, OTHER, SELFPAY ==
[2016-05-11 14:29] VITALS: BMI 43.3
[2017-06-14 17:17] LABS: Prothrombin Time (Protime)PT. 13.4 SECONDS (11.7-14.9)
== END ==
PROVIDERS: Family Provider Family Medicine Geriatric Medicine; PCP Family Medicine Geriatric Medicine
DX: J34.2 Deviated nasal septum (principal)
CPT/HCPCS: 85610; 85730

== ENCOUNTER → 2017-06-20 07:18 | Outpatient (CLI) | payer MEDICARE, OTHER, SELFPAY ==
[2016-05-11 14:29] VITALS: BMI 43.3
[2017-06-20 07:24] VITALS: PULSE 76; PULSE 78; PULSE 90; PULSE 93; PULSE 94; PULSE 96; PULSE 98; O2SAT 91; O2SAT 92; O2SAT 96; O2SAT 97; O2SAT 98
--- NOTE | 2017-06-20 10:55 | WT_ITS ---
PSN 6 Minute Walk Test - 6 Minute Walk Test 6 Minute Walk Test: 6 Minute Walk Test PSN:6-Minute Walk Test Start: 06/20/17 07: 38 Freq: Status: Active Protocol: RESP.6MINW Document 06/20/17 07:24 [facility] [place] (Rec: 06/20/17 07:41 [facility] [place] [id number]) 6 Minute Walk Test Date Performed 06/20/17 Time Performed 07:24 Height 5 ft 10 in Weight: 294 lb 6.548 oz Weight in Pounds 294.[address]: Ariana Juarez Assistive device used: None Pre-test Oxygen Delivery Method Room Air Pulse Ox (%) 96 Pulse Rate (60-100 beats/min) 78 Dyspnea Penelope Scale (0-10) 0.5 Exertion Penelope Scale (6-20) 6 1st minute Oxygen Delivery Method Room Air Pulse Ox (%) 92 Pulse Rate (60-100 beats/min) 90 Number of Rests Taken 0 2nd minute Oxygen Delivery Method Room Air Pulse Ox (%) 92 Pulse Rate (60-100 beats/min) 93 Number of Rests Taken 0 3rd minute Oxygen Delivery Method Room Air Pulse Ox (%) 98 Pulse Rate (60-100 beats/min) 96 Number of Rests Taken 0 4th minute Oxygen Delivery Method Room Air Pulse Ox (%) 91 Pulse Rate (60-100 beats/min) 98 Number of Rests Taken 1 Reported Symptoms Increased Work of Breathing 5th minute Oxygen Delivery Method Room Air Pulse Ox (%) 98 Pulse Rate (60-100 beats/min) 94 Number of Rests Taken 0 Reported Symptoms Increased Work of Breathing 6th minute Oxygen Delivery Method Room Air Pulse Ox (%) 97 Pulse Rate (60-100 beats/min) 93 Number of Rests Taken 0 Post-test Oxygen Delivery Method Room Air Pulse Ox (%) 98 Pulse Rate (60-100 beats/min) 76 Dyspnea Penelope Scale (0-10) 3 Exertion Penelope Scale (6-20) 12 Number of Rests Taken 0 Full Laps Walked 13 Partial Lap, Number of Tiles Walked 30 Total Distance Walked (ft) 797 - Interpretation Interpretation: The patient ambulate at 797 feet over the course of 6 minutes on room air without assistive devices or breaks. Pretesting oxygen saturation was noted to be 96% on room air. With ambulation, the geo oxygen saturation was 91%. This represents a significant exertional oxygen desaturation. - Recommendations Recommendations: There is no indication for the use of supplemental oxygen at this time. However , close interval follow-up is recommended given the degree of oxygen desaturation noted during this study.
== END ==
PROVIDERS: Family Provider Family Medicine Geriatric Medicine; PCP Family Medicine Geriatric Medicine; Visit Provider Nurse Practitioner Acute Care
DX: J96.11 Chronic respiratory failure with hypoxia (principal)
CPT/HCPCS: 94618

== ENCOUNTER → 2017-06-21 10:45 | Outpatient (CLI) | payer MEDICARE, OTHER, SELFPAY ==
[2016-05-11 14:29] VITALS: BMI 43.3
[2017-06-21 13:22] LABS: Absolute Lymphocyte Count 0.96 X10^3/ul (0.83-4.51); Absolute Neutrophil Count 5.7 X10^3/uL (2.0-7.7); Basophil# 0.05 X10^3/uL; Basophil% 0.6 % (0-1); Eosinophil# 0.17 X10^3/uL; Eosinophils% 2.1 % (0-5); Hematocrit 42.6 % (40-54); Hemoglobin 12.7 g/dl (13.0-16.5); Lymphocyte # 0.96 X10^3/ul (4.0); Lymphocyte % 11.7 % (19-41); Mean Corp Hgb Conc 29.8 g/gl (32-36); Mean Corpuscular Hgb 24.3 pg (27.0-32.0); Mean Corpuscular Volume 81.6 fL (80-94); Mean Platelet Vol. 9.5 fl (6.2-12.0); Monocyte# 1.32 X10^3/uL; Neutrophil # 5.72 X10^3/uL (2.7-7.7); Neutrophil % 69.5 % (47-70); Platelet Count 366 K/mm3 (150-450); RBC Distribution Width CV 18.9 % (11.6-14.6); RBC Distribution Width SD 55.8 fl (35.1-43.9); Red Blood Count 5.22 M/mm3 (4.6-6.2); White Blood Count 8.2 K/mm3 (4.4-11.0)
[2017-06-21 13:35] LABS: POSITIVE COUNT NO; POSITIVE DIFFERENTIAL NO; POSITIVE MORPHOLOGY NO
[2017-06-21 13:49] LABS: AST(SGOT) 50 U/L (15-37); Alanine Aminotransfer ALT/SGPT 77 U/L (16-61); Albumin, Serum 3.8 g/dL (3.2-5.0); Alkaline Phosphatase 65 U/L (45-117); Anion Gap 10 (5-15); BUN 26 mg/dL (7-18); BUN/Creat Ratio 23.4 RATIO (10-20); Calcium,Total 10.5 mg/dL (8.5-10.1); Chloride 98 mmol/L (98-107); Creatinine, Serum 1.11 mg/dL (0.70-1.30); EST Glomerular Filtration Rate 72 mL/min (>60); Est Glom Filt Rate - Afr Amer 87 mL/min (>60); Globulin 3.9 g/dL (2.2-4.2); Glucose 101 mg/dL (74-106); Protein, Total 7.7 g/dL (6.4-8.2); Sodium Level 137 mmol/L (136-145); Thyroid Stim Hormone (TSH) 1.78 uIU/mL (0.358-3.74)
== END ==
PROVIDERS: Family Provider Family Medicine Geriatric Medicine; PCP Family Medicine Geriatric Medicine; Visit Provider Family Medicine Geriatric Medicine
DX: E11.9 Type 2 diabetes mellitus without complications (principal); I10 Essential (primary) hypertension
CPT/HCPCS: 36415; 80053; 84443; 85025

== ENCOUNTER 2017-06-30 13:46 | Emergency (ER) | payer OTHER, MEDICARE, SELFPAY ==
[2016-05-11 14:29] VITALS: BMI 43.3
[2017-06-30 13:46] VITALS: BP 129/69; PULSE 86; RESP 18; TEMP 36.6; O2SAT 98; BMI 42.7
[2017-06-30 13:57] VITALS: BP 133/69; PULSE 84; RESP 14; O2SAT 97
[2017-06-30] MEDS: Naproxen 500 MG Tablet PO (14:25)
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
[2017-06-30 15:53] VITALS: BP 105/67; PULSE 76; RESP 19; O2SAT 97
== END 2017-06-30 15:55 | disposition home or self-care (01) ==
PROVIDERS: Emergency Provider Emergency Medicine; Family Provider Family Medicine Geriatric Medicine; PCP Family Medicine Geriatric Medicine
DX: M54.2 Cervicalgia (principal); I25.10 Atherosclerotic heart disease of native coronary artery without angina pectoris; J44.9 Chronic obstructive pulmonary disease, unspecified; Z79.51 Long term (current) use of inhaled steroids; Z79.82 Long term (current) use of aspirin; Z79.4 Long term (current) use of insulin; Z79.899 Other long term (current) drug therapy
CPT/HCPCS: 72040; 72072; 99282

== ENCOUNTER → 2017-07-06 13:10 | Outpatient (CLI) | payer OTHER, MEDICARE, SELFPAY ==
[2016-05-11 14:29] VITALS: BMI 43.3
[2017-07-06 13:48] LABS: Anion Gap 8 (5-15); BUN 26 mg/dL (7-18); BUN/Creat Ratio 25.2 RATIO (10-20); Chloride 103 mmol/L (98-107); Creatinine, Serum 1.03 mg/dL (0.70-1.30); EST Glomerular Filtration Rate 78 mL/min (>60); Est Glom Filt Rate - Afr Amer 95 mL/min (>60); Glucose 178 mg/dL (74-106); Potassium 3.9 mmol/L (3.5-5.1); Sodium Level 139 mmol/L (136-145)
== END ==
PROVIDERS: Family Provider Family Medicine Geriatric Medicine; PCP Family Medicine Geriatric Medicine; Visit Provider Family Medicine Geriatric Medicine
DX: E87.6 Hypokalemia (principal)
CPT/HCPCS: 36415; 80048

== ENCOUNTER → 2017-07-18 12:25 | Outpatient (CLI) | payer MEDICARE, OTHER, SELFPAY ==
[2016-05-11 14:29] VITALS: BMI 43.3
== END ==
PROVIDERS: Family Provider Family Medicine Geriatric Medicine; PCP Family Medicine Geriatric Medicine; Visit Provider Internal Medicine Critical Care Medicine
DX: G47.33 Obstructive sleep apnea (adult) (pediatric) (principal)
CPT/HCPCS: 98960; G0463

== ENCOUNTER 2017-09-01 15:13 | Emergency (ER) | payer MEDICARE, SELFPAY ==
[2016-05-11 14:29] VITALS: BMI 43.3
[2017-09-01 15:14] VITALS: BP 143/77; PULSE 75; RESP 16; TEMP 36.7; O2SAT 98; BMI 41.5
[2017-09-01 16:20] LABS: Bedside Glucose 32 mg/dL (70-110)
--- NOTE | 2017-09-01 16:32 | ED.VISSUMM ---
- ER Visit Summary Date of Service: 09/01/17 Chief Complaint: Epistaxis History of Present Illness: The patient is a 61 M who presents with a right-sided epistaxis since 10:00 this morning. 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 He has had no further treatment for it. He states he is waiting to hear back from his surgeon in [place] who is on [address] there. The patient states he is on Plavix and aspirin. He denies any headaches. No neurologic symptoms. Physical Examination: Afebrile vital signs are stable Gen: Well-nourished well-developed obese Head: Normocephalic atraumatic Eyes: Perrl EOMI ENT: TMs clear moist mucous membranes. There is no active bleeding noted in the posterior pharynx. Patient has a nasal cotton packing in and that was removed. There is a mass versus other tissue in the right nare laterally. There is mild dark blood bleeding noted. Neck: Supple no lymphadenopathy no JVD nontender CVS: Regular rate rhythm no murmurs normal S1-S2 Respiratory: No distress clear to auscultation bilaterally chest nontender Abdomen: Soft nontender nondistended normal bowel sounds no masses Back: Nontender Extremity: Nontender no edema Skin: Normal color no rash Neuro: alert orientated ?3 CN II-XII intact normal strength sensation reflexes gait cerebellar Psych: Normal affect normal mood Test Results: Blood sugar obtained was 32. Emergency Department Course and Treatment: While waiting for FloSeal the patient became sweaty and weak. Blood sugar checked and was low 32. He states he had a banana for lunch. He was given orange juice and food. FloSeal was applied. Patient was observed in the department. Repeat blood sugar was obtained. Patient will need to call his ENT physician in [place] and arrange follow-up early next week. Return if worsening or concerns. Impression: 1. Right sided epistaxis 2. Diabetic hypoglycemia This note was generated with [employer] dictation software. It may contain incorrect words, spelling, and punctuation that were not noted in review of the chart prior to signing ED Disposition - Plan for ED Patient: Disposition: Home or Assisted Living Chief Complaint: Nosebleed Instructions: Nosebleed, ED Diabetes Hypoglycemia Insulin React Additional Instructions: Please call your ENT doctor to arrange early follow-up next week. Return to emergency room if worsening or concerns.
--- NOTE | 2017-09-01 16:36 | ED.DCSUM_ITS ---
- ER Visit Summary Date of Service: 09/01/17 Chief Complaint: Epistaxis History of Present Illness: The patient is a 61 M who presents with a right- sided epistaxis since 10:00 this morning. 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 He has had no further treatment for it. He states he is waiting to hear back from his surgeon in [place] who is on [address] there. The patient states he is on Plavix and aspirin. He denies any headaches. No neurologic symptoms. Physical Examination: Afebrile vital signs are stable Gen: Well-nourished well-developed obese Head: Normocephalic atraumatic Eyes: Perrl EOMI ENT: TMs clear moist mucous membranes. There is no active bleeding noted in the posterior pharynx. Patient has a nasal cotton packing in and that was removed. There is a mass versus other tissue in the right nare laterally. There is mild dark blood bleeding noted. Neck: Supple no lymphadenopathy no JVD nontender CVS: Regular rate rhythm no murmurs normal S1-S2 Respiratory: No distress clear to auscultation bilaterally chest nontender Abdomen: Soft nontender nondistended normal bowel sounds no masses Back: Nontender Extremity: Nontender no edema Skin: Normal color no rash Neuro: alert orientated ?3 CN II-XII intact normal strength sensation reflexes gait cerebellar Psych: Normal affect normal mood Test Results: Blood sugar obtained was 32. Emergency Department Course and Treatment: While waiting for FloSeal the patient became sweaty and weak. Blood sugar checked and was low 32. He states he had a banana for lunch. He was given orange juice and food. FloSeal was applied. Patient was observed in the department. Repeat blood sugar was obtained. Patient will need to call his ENT physician in [place] and arrange follow-up early next week. Return if worsening or concerns. Impression: 1. Right sided epistaxis 2. Diabetic hypoglycemia This note was generated with [employer] dictation software. It may contain incorrect words, spelling, and punctuation that were not noted in review of the chart prior to signing ED Disposition - Plan for ED Patient: Disposition: Home or Assisted Living Chief Complaint: Nosebleed Instructions: Nosebleed, ED Diabetes Hypoglycemia Insulin React Additional Instructions: Please call your ENT doctor to arrange early follow-up next week. Return to emergency room if worsening or concerns.
[2017-09-01 17:11] LABS: Bedside Glucose 76 mg/dL (70-110)
[2017-09-01 17:16] VITALS: BP 115/66; PULSE 67; RESP 18; O2SAT 99
[2017-09-01 18:03] VITALS: BP 115/66; PULSE 61; RESP 18; O2SAT 99
[2017-09-01 18:16] LABS: Bedside Glucose 124 mg/dL (70-110)
== END 2017-09-01 18:04 | disposition home or self-care (01) ==
PROVIDERS: Emergency Provider Emergency Medicine; Family Provider Family Medicine Geriatric Medicine; PCP Family Medicine Geriatric Medicine
DX: R04.0 Epistaxis (principal); E11.649 Type 2 diabetes mellitus with hypoglycemia without coma; E66.9 Obesity, unspecified; J44.9 Chronic obstructive pulmonary disease, unspecified; Z79.4 Long term (current) use of insulin; Z79.51 Long term (current) use of inhaled steroids; Z79.02 Long term (current) use of antithrombotics/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; Z79.82 Long term (current) use of aspirin; Z79.899 Other long term (current) drug therapy
CPT/HCPCS: 30901; 82962; 99282

== ENCOUNTER 2017-09-03 15:23 | Emergency (ER) | payer MEDICARE, SELFPAY ==
[2016-05-11 14:29] VITALS: BMI 43.3
[2017-09-03 15:25] VITALS: BP 137/73; PULSE 76; RESP 20; TEMP 36.7; BMI 42.7
[2017-09-03 16:10] VITALS: BP 136/76; PULSE 69; RESP 18; O2SAT 97
--- NOTE | 2017-09-03 16:10 | ED.VISSUMM ---
- ER Visit Summary Date of Service: 09/03/17 Chief Complaint: Nosebleed History of Present Illness: The patient is a 61 M who presents with epistaxis. It began 2 days ago. He was seen in the emergency department at that time and treated with FloSeal. He states his bleeding was controlled but after returning home and using his BiPAP the FloSeal came out and he has had intermittent mild bleeding since that time. He otherwise is asymptomatic and has no other complaints. 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 He had a cancerous tumor which was biopsied on July 04. The patient states he has not followed up with ENT since that time and has called but his not been able to speak to anyone or heard back. Physical Examination: Afebrile vitals normal Patient has a large clot in the right nostril which was evacuated there does appear to be a mass mild active bleeding Heart regular rate and rhythm Lungs are clear Abdomen soft Test Results: Not indicated Emergency Department Course and Treatment: Topical lidocaine soaked cotton ball was placed in the right nostril. An anterior 5-1/2 cm Rhino Rocket packing was placed. Bleeding is well controlled. I spoke to ENT on-call up at [facility]. They report that the patient was seen by Dr. Almeida last week although the patient denied this. They did advise that he would need prophylactic antibiotics. They will arrange for close outpatient follow-up and for packing removal. I was notified by nursing that the patient was complaining of pain and anxiety and felt like he could not swallow. The patient is in no distress his oropharynx is patent he has no respiratory difficulty. The packing was slightly withdrawn. We will monitor him here for a while longer and plan is discharge. Treatment Plan: [] Disposition: Discharge Impression: Epistaxis Cancerous nasal tumor This note was generated with [employer] dictation software. It may contain incorrect words, spelling, and punctuation that were not noted in review of the chart prior to signing ED Disposition - Plan for ED Patient: Chief Complaint: Nosebleed Referrals: Nicho Beth Chi, MD [Primary Care Provider] -
--- NOTE | 2017-09-03 16:18 | DCINST.ED_ITS ---
ED Disposition - Plan for ED Patient: Chief Complaint: Nosebleed Instructions: Nosebleed Prescriptions: Cephalexin [Keflex] 500 mg PO Q12H #20 cap Referrals: Nicho Beth Chi, MD [Primary Care Provider] - Additional Instructions: Follow up with ENT at [facility]. I spoke to the on-call physician who stated that they would contact you if however you do not hear from them in the next several days call for an appointment. Take all antibiotics as prescribed. Return for new or worsening symptoms.
--- NOTE | 2017-09-03 16:31 | ED.RN ---
1615-pt sitting up in bed with mod anxiety and stated, feels that throat closing off spo2 placed and was 97%. no foreign body obs to back of throat. pt stated, i dont think i can stand this being in and pointing to nasal balloon. dr. nath aware and in at bedside to reposition.
--- NOTE | 2017-09-03 16:34 | ED.RN ---
1630-nose balloon repositioned and pt up in chair and more calm now. stated, feeling a little better but think was numbing spray that made throat feel like that
== END 2017-09-03 16:35 | disposition home or self-care (01) ==
LOC: ED 16:40
PROVIDERS: Emergency Provider Emergency Medicine; Family Provider Family Medicine Geriatric Medicine; PCP Family Medicine Geriatric Medicine
DX: R04.0 Epistaxis (principal); C44.301 Unspecified malignant neoplasm of skin of nose
CPT/HCPCS: 30903; 99283

== ENCOUNTER → 2017-09-19 13:31 | Outpatient (CLI) | payer MEDICARE, SELFPAY ==
[2016-05-11 14:29] VITALS: BMI 43.3
[2017-09-19 17:09] LABS: Absolute Lymphocyte Count 0.86 X10^3/ul (0.83-4.51); Absolute Neutrophil Count 7.3 X10^3/uL (2.0-7.7); Basophil# 0.02 X10^3/uL; Basophil% 0.2 % (0-1); Hematocrit 41.5 % (40-54); Hemoglobin 12.4 g/dl (13.0-16.5); Lymphocyte # 0.86 X10^3/ul (4.0); Mean Corp Hgb Conc 29.9 g/gl (32-36); Mean Corpuscular Hgb 24.1 pg (27.0-32.0); Mean Corpuscular Volume 80.7 fL (80-94); Mean Platelet Vol. 9.4 fl (6.2-12.0); Monocyte# 1.29 X10^3/uL; Monocyte% 13.5 % (0-10); Neutrophil # 7.27 X10^3/uL (2.7-7.7); Platelet Count 347 K/mm3 (150-450); RBC Distribution Width CV 18.9 % (11.6-14.6); RBC Distribution Width SD 55.1 fl (35.1-43.9); Red Blood Count 5.14 M/mm3 (4.6-6.2); White Blood Count 9.6 K/mm3 (4.4-11.0)
[2017-09-19 17:26] LABS: POSITIVE COUNT NO; POSITIVE DIFFERENTIAL NO; POSITIVE MORPHOLOGY NO
[2017-09-19 17:37] LABS: ALB/GLOB Ratio 0.9 RATIO (0.9-2.4); AST(SGOT) 24 U/L (15-37); Alanine Aminotransfer ALT/SGPT 56 U/L (16-61); Albumin, Serum 3.9 g/dL (3.2-5.0); Alkaline Phosphatase 72 U/L (45-117); Anion Gap 11 (5-15); BUN 19 mg/dL (7-18); BUN/Creat Ratio 17.4 RATIO (10-20); Calcium,Total 10.3 mg/dL (8.5-10.1); Chloride 99 mmol/L (98-107); Creatinine, Serum 1.09 mg/dL (0.70-1.30); EST Glomerular Filtration Rate 73 mL/min (>60); Est Glom Filt Rate - Afr Amer 89 mL/min (>60); Globulin 4.2 g/dL (2.2-4.2); Glucose 230 mg/dL (74-106); Potassium 3.6 mmol/L (3.5-5.1); Protein, Total 8.1 g/dL (6.4-8.2); Sodium Level 136 mmol/L (136-145); Thyroid Stim Hormone (TSH) 1.45 uIU/mL (0.358-3.74)
== END ==
PROVIDERS: Family Provider Family Medicine Geriatric Medicine; PCP Family Medicine Geriatric Medicine; Visit Provider Family Medicine Geriatric Medicine
DX: E11.9 Type 2 diabetes mellitus without complications (principal); I10 Essential (primary) hypertension
CPT/HCPCS: 36415; 80053; 84443; 85025

== ENCOUNTER → 2018-01-18 15:26 | Outpatient (CLI) | payer MEDICARE, SELFPAY ==
[2016-05-11 14:29] VITALS: BMI 43.3
[2018-01-18 17:51] LABS: Anion Gap 9 (5-15); BUN 18 mg/dL (7-18); BUN/Creat Ratio 23.3 RATIO (10-20); Calcium,Total 9.9 mg/dL (8.5-10.1); Chloride 102 mmol/L (98-107); Creatinine, Serum 0.77 mg/dL (0.70-1.30); EST Glomerular Filtration Rate 109 mL/min (>60); Est Glom Filt Rate - Afr Amer 132 mL/min (>60); Glucose 211 mg/dL (74-106); Potassium 3.9 mmol/L (3.5-5.1); Sodium Level 139 mmol/L (136-145)
[2018-01-18 17:59] LABS: BNP,B-Type NATRIURETIC PEPTIDE 186.2 pg/mL (0-100)
== END ==
PROVIDERS: Family Provider Family Medicine Geriatric Medicine; PCP Family Medicine Geriatric Medicine; Referring Provider Nurse Practitioner Acute Care; Visit Provider Nurse Practitioner Acute Care
DX: R06.09 Other forms of dyspnea (principal)
CPT/HCPCS: 36415; 80048; 83880

== ENCOUNTER → 2018-02-08 15:35 | Outpatient (CLI) | payer MEDICARE, SELFPAY ==
[2016-05-11 14:29] VITALS: BMI 43.3
[2018-02-08 16:49] LABS: Cholesterol 167 mg/dL (200); High Density Lipoprotein 22 mg/dL; Triglycerides 625 mg/dL
[2018-02-08 17:03] LABS: Hemoglobin A1c 10.1 % (4.2-6.3)
[2018-02-08 17:11] LABS: Microalbumin:Creatinine Ratio 169.2 mg/g CRE (<30 mg/g CRE)
== END ==
PROVIDERS: Family Provider Internal Medicine; PCP Internal Medicine; Referring Provider Internal Medicine; Visit Provider Internal Medicine
DX: E11.9 Type 2 diabetes mellitus without complications (principal); I25.10 Atherosclerotic heart disease of native coronary artery without angina pectoris
CPT/HCPCS: 36415; 80061; 82043; 82570; 83036

== ENCOUNTER 2018-02-23 14:20 | Emergency (ER) | payer MEDICARE, SELFPAY ==
[2016-05-11 14:29] VITALS: BMI 43.3
[2018-02-23 14:21] VITALS: BP 169/85; PULSE 99; RESP 16; TEMP 37.1; O2SAT 95; BMI 40.6
--- NOTE | 2018-02-23 16:38 | ED.VISSUMM ---
- ER Visit Summary Date of Service: 02/23/18 Chief Complaint: Cellulitis, abscess History of Present Illness: The patient is a 62 M here with concerns of cellulitis posterior scalp. States area and redness enlarging over 2 weeks. Noted bump there 2 months ago. No fevers. He is a diabetic. Denies any drainage. States he does wear a CPAP at night for sleep apnea for 2 years and the straps comes right over it. Has not seen his PCP. Has had abscess in other areas requiring drainage. Physical Examination: General: Alert and oriented ?3, no acute distress HEENT: Normocephalic, atraumatic. Moist mucosa membranes. Posterior scalp 4 x 2 cm induration, scaly lesions. No active drainage. Scabbing on the superior aspect of the lesion. Neck: supple, nontender. Cardiovascular: Regular rate and rhythm, no murmurs Respiratory: Normal breath sounds, symmetric, no distress Abdomen: Soft, nontender, nondistended Extremities: Nontender, no edema, pulses intact ?4 Neuro: no focal neurological deficits. Test Results: [] Emergency Department Course and Treatment: Patient nontoxic. Vital signs stable. Due to induration and signs discussed incision and drainage for which he agreed. There is open, there is no exudative drainage. Bloody drainage that is controlled. Dressing placed. Wound care discussed. Started on Keflex. He will follow-up with PCP after the weekend for wound care. Signs and symptoms discussed return. All questions were answered. Treatment Plan: [] Disposition: Discharge Impression: Posterior scalp abscess status post incision and drainage This note was generated with [employer] dictation software. It may contain incorrect words, spelling, and punctuation that were not noted in review of the chart prior to signing ED Disposition - Plan for ED Patient: Disposition: Home or Assisted Living Chief Complaint: Abscess Diagnosis: Scalp abscess Instructions: ED Abscess IandD Prescriptions: Cephalexin [Keflex] 500 mg PO Q6 #40 capsule Referrals: Mery Raymond MD [Primary Care Provider] - 3-5 Days
--- NOTE | 2018-02-23 16:41 | ED.DCSUM_ITS ---
- ER Visit Summary Date of Service: 02/23/18 Chief Complaint: Cellulitis, abscess History of Present Illness: The patient is a 62 M here with concerns of cellulitis posterior scalp. States area and redness enlarging over 2 weeks. Noted bump there 2 months ago. No fevers. He is a diabetic. Denies any dr dockery. States he does wear a CPAP at night for sleep apnea for 2 years and the straps comes right over it. Has not seen his PCP. Has had abscess in other areas requiring drainage. Physical Examination: General: Alert and oriented ?3, no acute distress HEENT: Normocephalic, atraumatic. Moist mucosa membranes. Posterior scalp 4 x 2 cm induration, scaly lesions. No active drainage. Scabbing on the superior aspect of the lesion. Neck: supple, nontender. Cardiovascular: Regular rate and rhythm, no murmurs Respiratory: Normal breath sounds, symmetric, no distress Abdomen: Soft, nontender, nondistended Extremities: Nontender, no edema, pulses intact ?4 Neuro: no focal neurological deficits. Test Results: [] Emergency Department Course and Treatment: Patient nontoxic. Vital signs stable. Due to induration and signs discussed incision and drainage for which he agreed. There is open, there is no exudative drainage. Bloody drainage that is controlled. Dressing placed. Wound care discussed. Started on Keflex. He will follow-up with PCP after the weekend for wound care. Signs and symptoms discussed return. All questions were answered. Treatment Plan: [] Disposition: Discharge Impression: Posterior scalp abscess status post incision and drainage This note was generated with [facility] [employer] dictation software. It may contain incorrect words, spelling, and punctuation that were not noted in review of the chart prior to signing ED Disposition - Plan for ED Patient: Disposition: Home or Assisted Living Chief Complaint: Abscess Diagnosis: Scalp abscess Instructions: ED Abscess IandD Prescriptions: Cephalexin [Keflex] 500 mg PO Q6 #40 capsule Referrals: Mery Raymond MD [Primary Care Provider] - 3-5 Days
[2018-02-23] MEDS: Cephalexin 250 MG Capsule 500 MG PO (16:59)
[2018-02-23] MEDS: Ondansetron ODT 4 MG Tablet 8 MG PO (18:19)
[2018-02-23 18:20] VITALS: BP 156/97; PULSE 94; RESP 22; O2SAT 97
[2018-02-23 18:21] LABS: Bedside Glucose 278 mg/dL (70-110)
== END 2018-02-23 18:21 | disposition home or self-care (01) ==
PROVIDERS: Emergency Provider Emergency Medicine; Family Provider Internal Medicine; PCP Internal Medicine
DX: L02.811 Cutaneous abscess of head [any part, except face] (principal); E11.9 Type 2 diabetes mellitus without complications; G47.30 Sleep apnea, unspecified; J44.9 Chronic obstructive pulmonary disease, unspecified; Z79.84 Long term (current) use of oral hypoglycemic drugs; Z79.82 Long term (current) use of aspirin; Z79.899 Other long term (current) drug therapy
CPT/HCPCS: 10060; 82962; 99284

== ENCOUNTER 2018-03-07 15:40 | Outpatient (RCR) | payer MEDICARE, SELFPAY ==
[2016-05-11 14:29] VITALS: BMI 43.3
== END 2018-03-09 23:59 ==
LOC: DC 15:40
PROVIDERS: Family Provider Internal Medicine; PCP Internal Medicine; Visit Provider Internal Medicine
DX: E11.9 Type 2 diabetes mellitus without complications (principal); Z71.3 Dietary counseling and surveillance
CPT/HCPCS: G0108

== ENCOUNTER 2018-03-15 10:09 | Outpatient (RCR) | payer MEDICARE, SELFPAY ==
[2016-05-11 14:29] VITALS: BMI 43.3
[2018-03-08 11:21] VITALS: BMI 40.6
== END 2018-04-09 23:59 ==
LOC: DC 10:09
PROVIDERS: Family Provider Internal Medicine; PCP Internal Medicine; Visit Provider Internal Medicine
DX: E11.9 Type 2 diabetes mellitus without complications (principal); Z71.3 Dietary counseling and surveillance
CPT/HCPCS: 97802

== ENCOUNTER → 2018-03-28 12:00 | Outpatient (CLI) | payer MEDICARE, SELFPAY ==
[2016-05-11 14:29] VITALS: BMI 43.3
[2018-03-19 09:41] VITALS: BMI 43.0
[2018-03-20 14:09] VITALS: BMI 43.0
--- NOTE | 2018-03-28 12:11 | STEWCON_ITS ---
Version 2 Stress Results Protocol: Dobutamine Protocol Maximum Predicted HR: 159 bpm Target HR: 135 bpm % Maximum Predicted HR: 89 % DurationHeart Rate Stage (mm:ss) (bpm) BP Dose Comment BASELINE 76 149/89 2CC DEFINTIY STAGE 1 3:00 74 168/8810.001CC DEFINITY STAGE 2 3:00 90 188/7520.00 STAGE 3 3:00 98 168/7830.00.25 MG ATROPINE STAGE 4 3:37 142 139/8240.00.5 MG ATROPINE RECOVERY 96 133/73 2CC DEFINITY Stress Duration: 12:37 mm:ss Maximum Stress HR: 142 bpm Baseline Echocardiogram Findings The estimated ejection fraction is 65 %. Stress Echo Wall motion Data Resting WM Intermediate WM Stress WM Resting Wall Motion Wall Motion Stress No regional wall motion No regional wall motion abnormalities noted. abnormalities noted. EKG Data The baseline ECG displays normal sinus rhythm. The patient was titrated from 10 mcg to a maximum of 40 mcg of dobutamine during the stress. The maximum heart rate attained was 142 beats per minute. This was 89% of maximum predicted heart rate. At peak infusion, upsloping ST changes only were noted, which did not meet the criteria for ischemia. No clinical angina was noted. Interpretation Summary The estimated ejection fraction is 65 %. Normal adequate dobutamine echocardiogram. Negative for ischemia by echocardiographic criteria. No anginal symptoms noted. Patient did have downsloping ST segment depression along the inferior lateral leads during infusion which did not quite reach significance for ischemia. Rare PVC noted. Appropriate blood pressure response to dobutamine. Final LVEF is 75%. Decreased sensitivity due to poor echo windows requiring Definity enhancing agent. Test terminated due to the attainment of target heart rate. Ordering Physician: Harinder Gracia Referring Physician: aHrinder Gracia Performed By:
[2018-03-28 13:24] LABS: AST(SGOT) 35 U/L (15-37); Alanine Aminotransfer ALT/SGPT 55 U/L (16-61); Albumin, Serum 3.7 g/dL (3.2-5.0); Alkaline Phosphatase 78 U/L (45-117); Bilirubin, Direct 0.14 mg/dL (0.00-0.30); Cholesterol 160 mg/dL (200); Globulin 3.8 g/dL (2.2-4.2); High Density Lipoprotein 27 mg/dL; Protein, Total 7.5 g/dL (6.4-8.2); Triglycerides 411 mg/dL
--- NOTE | 2018-03-28 13:35 | RAD_ITS ---
STUDY: X-RAY - LUMBAR SPINE REASON FOR EXAM: Male, 62 years old. Low back pain, no injury TECHNIQUE: 3 view(s) of the lumbar spine were obtained. COMPARISON: None FINDINGS: Normal lumbar lordosis. There is no substantial scoliosis. There is a normal alignment of the vertebrae. There is multilevel endplate spondylosis of the lumbar vertebrae. There is multi-level degenerative disc disease with multi-level disc space narrowing. There is no demonstrated fracture. The soft tissue structures are unremarkable. RAD/Lumbar Spine 2 or 3 Views IMPRESSION: Degenerative changes of the spine, as detailed above. Electronically Signed: Ric Lowe DO at 14:23 EST Tel , Service support ,
--- OUTSIDE RECORDS SUMMARY | 2018-06-29 16:32 | XMS RPT_ITS ---
:1955 Author Organization OHIP Support Name Relationship Address Phone D Unavailable Unavailable Unavailable EVANS, GIN Unavailable [address] + [address] [place] [address] D Unavailable Unavailable Unavailable EVANS, GIN Unavailable [address] + [address] [place] [address] D Unavailable Unavailable Unavailable EVANS, GIN Unavailable [address] + [address] [place] [address] D Unavailable Unavailable Unavailable EVANS, GIN Unavailable Unavailable + D Unavailable Unavailable Unavailable EVANS, GIN Unavailable Unavailable + D Unavailable Unavailable Unavailable EVANS, GIN Unavailable . + [place] [address] D Unavailable Unavailable Unavailable EVANS, GIN Unavailable . + [place] [address] D Unavailable Unavailable Unavailable EVANS, GIN Unavailable . + [place] [address] D Unavailable Unavailable Unavailable EVANS, GIN Unavailable . + [place] [address] D Unavailable Unavailable Unavailable EVANS, GIN Unavailable Unavailable + [place] [address] D Unavailable Unavailable Unavailable EVANS, GIN Unavailable Unavailable + [place] [address] D Unavailable Unavailable Unavailable EVANS, GIN Unavailable Unavailable + [place] [address] D Unavailable Unavailable Unavailable EVANS, GIN Unavailable Unavailable + [place] [address] D Unavailable Unavailable Unavailable D Unavailable Unavailable Unavailable STREET JOLEEN Unavailable [address] + [address] [place] [address] D Unavailable Unavailable Unavailable STREET, JOLEEN Unavailable [address] + [address] [place] [address] D Unavailable Unavailable Unavailable STREET, JOLEEN Unavailable [address] + [address] [place] [address] D Unavailable Unavailable Unavailable STREET, JOLEEN Unavailable [address] + [address] [place] [address] STREET, JOLEEN Unavailable Unavailable + STREET, JOLEEN Unavailable Unavailable + STREET, JOLEEN Unavailable Unavailable + STREET, JOLEEN Unavailable Unavailable + STREET, JOLEEN Unavailable Unavailable + STREET, JOLEEN Unavailable Unavailable + STREET, JOLEEN Unavailable Unavailable + D Unavailable Unavailable Unavailable STREET, JOLEEN Unavailable [address] + [address] [place] [address] D Unavailable Unavailable Unavailable STREET, JOLEEN Unavailable [address] + [address] [place] [address] D Unavailable Unavailable Unavailable STREET, JOLEEN Unavailable [address] + [address] [place] [address] D Unavailable Unavailable Unavailable STREET, JOLEEN Unavailable [address] + [address] [place] [address] D Unavailable Unavailable Unavailable STREET, JOLEEN Unavailable [address] + [address] [place] [address] STREET, JOLEEN Unavailable Unavailable + STREET, JOLEEN Unavailable Unavailable + STREET, JOLEEN Unavailable Unavailable + STREET, JOLEEN Unavailable Unavailable + D Unavailable Unavailable Unavailable STREET, JOLEEN Unavailable [address] + [address] [place] [address] D Unavailable Unavailable Unavailable STREET, JOLEEN Unavailable [address] + [address] [place] [address] D Unavailable Unavailable Unavailable WEATHERFORDJOLEEN Unavailable [address] + [address] [place] [address] D Unavailable Unavailable Unavailable WEATHERFORDJOLEEN Unavailable [address] + [address] [place] [address] D Unavailable Unavailable Unavailable WEATHERFORDJOLEEN Unavailable [address] + [address] [place] [address] D Unavailable Unavailable Unavailable WEATHERFORDJOLEEN Unavailable [address] + [address] [place] [address] D Unavailable Unavailable Unavailable WEATHERFORDJOLEEN Unavailable [address] + [address] [place] [address] D Unavailable Unavailable Unavailable WEATHERFORDJOLEEN Unavailable [address] + [address] [place] [address] D Unavailable Unavailable Unavailable WEATHERFORDJOLEEN Unavailable [address] + [address] [place] [address] WEATHERFORDJOLEEN Unavailable Unavailable + WEATHERFORD JOLEEN Unavailable Unavailable + D Unavailable Unavailable Unavailable WEATHERFORDJOLEEN Unavailable [address] + [address] [place] [address] WE[place]ER[facility]ORD JOLEEN Unavailable Unavailable + D Unavailable Unavailable Unavailable [place]ER[place] JOLEEN Unavailable [address] + [address] [place] [address] WE[place]ER[facility]ORD JOLEEN Unavailable Unavailable + D Unavailable Unavailable Unavailable WEATHERFORDJOLEEN Unavailable [address] + [address] [place] [address] D Unavailable Unavailable Unavailable WEATHERFORDJOLEEN Unavailable [address] + [address] [place] [address] D Unavailable Unavailable Unavailable WEATHERFORDJOLEEN Unavailable [address] + [address] [place] [address] D Unavailable Unavailable Unavailable [place]ER[place] JOLEEN Unavailable [address] + [address] [place] [address] D Unavailable Unavailable Unavailable STREET JOLEEN Unavailable [address] + [address] [place] [address] D Unavailable Unavailable Unavailable STREETEDWINA Unavailable [address] + [address] [place] [address] D Unavailable Unavailable Unavailable STREET JOLEEN Unavailable [address] + [address] [place] [address] D Unavailable Unavailable Unavailable STREET JOLEEN Unavailable [address] + [address] [place] [address] D Unavailable Unavailable Unavailable STREET JOLEEN Unavailable [address] + [address] [place] [address] D Unavailable Unavailable Unavailable STREET JOLEEN Unavailable [address] + [address] [place] [address] Care Team Providers Name Role Phone Harinder Gracia Attending Unavailable Harinder Gracia Referring Unavailable Kirit, Nicho Chi Primary Care Unavailable Harinder Gracia Attending Unavailable Harinder Gracia Referring Unavailable Kirit, Nicho Chi Primary Care Unavailable Harinder Gracia Attending Unavailable Harinder Gracia Referring Unavailable Kirit, Nicho Chi Primary Care Unavailable Harinder Gracia Attending Unavailable Kirit, Nicho Chi Referring Unavailable NUSRAT CUELLAR Attending Unavailable NUSRAT CUELLAR Referring Unavailable Kirit, Nicho Chi Primary Care Unavailable Harinder Gracia Attending Unavailable Harinder Gracia Referring Unavailable Kirit, Nicho Chi Primary Care Unavailable Stephanie Schultz Attending Unavailable Stephanie Schultz Referring Unavailable Kirit, Nicho Chi Primary Care Unavailable Kirit, Nicho Chi Primary Care Unavailable Sementi, Mary Admitting Unavailable Sementi, Mary Attending Unavailable Sementi, Mary Admitting Unavailable Sementi, Mary Attending Unavailable Kirit, Nicho Chi Primary Care Unavailable Sementi, Mary Consulting Unavailable Juarez Ariana Attending Unavailable Juarez Raiana Referring Unavailable Kirit, Nicho Chi Primary Care Unavailable Sementi, Mary Admitting Unavailable Sementi, Mary Attending Unavailable Kirit, Nicho Chi Primary Care Unavailable Sementi, Mary Consulting Unavailable NUSRAT CUELLAR Referring Unavailable Kirit, Nicho Chi Primary Care Unavailable NUSRAT CUELLAR Attending Unavailable Harinder Gracia Attending Unavailable Kirit, Nicho Chi Referring Unavailable Kirit, Nicho Chi Primary Care Unavailable Ariana Juarez Attending Unavailable Kirit, Nicho Chi Referring Unavailable Kirit, Nicho Chi Attending Unavailable Kirit, Nicho Chi Primary Care Unavailable Kirit, Nicho Chi Primary Care Unavailable Harinder Ferris Attending Unavailable Kirit, Nicho Chi Attending Unavailable Kirit, Nicho Chi Primary Care Unavailable Antonio Garcia D.O. Attending Unavailable Ann Ariana Referring Unavailable Ariana Juarez Attending Unavailable Kirit, Nicho Chi Referring Unavailable Damion Hawkins Attending Unavailable Kirit, Nicho Chi Primary Care Unavailable Robb Hua Attending Unavailable Bri, Mary Referring Unavailable Kirit, Nicho Chi Primary Care Unavailable Harinder Woods Attending Unavailable Kirit, Nicho Chi Primary Care Unavailable Guzman Landers Attending Unavailable Kirit, Nicho Chi Attending Unavailable Kirit, Nicho Chi Primary Care Unavailable Harinder Gracia Attending Unavailable Kirit, Nicho Chi Referring Unavailable Kirit, Nicho Chi Primary Care Unavailable Damion Hawkins Attending Unavailable Kirit, Nicho Chi Referring Unavailable Ariana Juarez Attending Unavailable Ikrit, Nicho Chi Referring Unavailable Ariana Juarez Attending Unavailable Kirit, Nicho Chi Referring Unavailable Juarez, Ariana Attending Unavailable Juarez, Ariana Referring Unavailable Kirit, Nicho Chi Primary Care Unavailable Oswald Mendez Attending Unavailable Kirit, Nicho Chi Referring Unavailable Oleghe, Efewongbe Attending Unavailable Oleghe, Efewongbe Referring Unavailable Oleghe, Efewongbe Attending Unavailable Oleghe, Efewongbe Referring Unavailable Oleghe, Efewongbe Primary Care Unavailable ShoHarriett flanagan WIRE CHIEF-C Attending Unavailable Kirit, Nicho Chi Referring Unavailable Oleghe, Efewongbe Primary Care Unavailable Chauncey Tariq Attending Unavailable Oleghe, Efewongbe Attending Unavailable Oleghe, Efewongbe Primary Care Unavailable Harriett Christina WIRE CHIEF-C Attending Unavailable Kirit, Nicho Chi Referring Unavailable Oleghe, Efewongbe Attending Unavailable Oleghe, Efewongbe Primary Care Unavailable Harinder Gracia Attending Unavailable Kirit, Nicho Chi Referring Unavailable Oleghe, Efewongbe Attending Unavailable Oleghe, Efewongbe Referring Unavailable Harinder Gracia Attending Unavailable Harinder Gracia Referring Unavailable Oleghe, Efewongbe Primary Care Unavailable Harinder Gracia Attending Unavailable Harinder Gracia Referring Unavailable Oleghe, Efewongbe Primary Care Unavailable Harinder Gracia Unavailable Oleghe, Efewongbe Attending Unavailable Oleghe, Efewongbe Primary Care Unavailable Oleghe, Efewongbe Attending Unavailable Oleghe, Efewongbe Primary Care Unavailable Damion Hawkins Attending Unavailable Kirit, Nicho Chi Referring Unavailable EDUARDO ALMEIDA Attending Unavailable Kirit, Nicho-chi Primary Care Unavailable EDUARDO ALMEIDA Attending Unavailable Kirit, Nicho-chi Primary Care Unavailable EDUARDO ALMEIDA Attending Unavailable Dr. Jimmy Breen Referring Unavailable Kirit, Nicho-chi Primary Care Unavailable EDUARDO ALMEIDA Admitting Unavailable Kirit, Nicho-chi Primary Care Unavailable Dr. Jaret Mcdonough Attending Unavailable EDUARDO ALMEIDA Attending Unavailable Kirit, Nicho-chi Primary Care Unavailable EDUARDO ALMEIDA Attending Unavailable EDUARDO ALMEIDA Referring Unavailable Kirit, Nicho-chi Primary Care Unavailable EDUARDO ALMEIDA Admitting Unavailable Severino, Dr. Liam Davis Attending Unavailable Kirit, Nicho-chi Primary Care Unavailable EDUARDO ALMEIDA Admitting Unavailable EDUARDO ALMEIDA Attending Unavailable EDUARDO ALMEIDA Referring Unavailable Kirit, Nicho-chi Primary Care Unavailable EDUARDO ALMEIDA Attending Unavailable Kirit, Nicho-chi Primary Care Unavailable EDUARDO ALMEIDA Attending Unavailable Kirit, Nicho-chi Referring Unavailable Kirit, Nicho-chi Primary Care Unavailable EDUARDO ALMEIDA Attending Unavailable Kirit, Nicho-chi Primary Care Unavailable EDUARDO ALMEIDA Admitting Unavailable EDUARDO ALMEIDA Attending Unavailable Kirit, Nicho-chi Referring Unavailable Kirit, Nicho-chi Primary Care Unavailable EDUARDO ALMEIDA Attending Unavailable Kirit, Nicho-chi Referring Unavailable Kirit, Nicho-chi Primary Care Unavailable EDUARDO ALMEIDA Attending Unavailable EDUARDO ALMEIDA Referring Unavailable Kirit, Nicho-chi Primary Care Unavailable EDUARDO ALMEIDA Attending Unavailable EDUARDO ALMEIDA Referring Unavailable Kirit, Nicho-chi Primary Care Unavailable PROBLEMS PROBLEMS DATE TYPE CONDITION / CODE ATTENDING STATUS SOURCE Unknown J96.11 - Chronic Damion Hawkins [facility] [place] [facility] respiratory failure Community with hypoxia / Hospital J96.11(ICD-10) Repository Unknown G47.33 - Obstructive Damion Hawkins Active [place] [facility] sleep apnea (adult) Community (pediatric) / Hospital G47.33(ICD-10) Repository Unknown E66.01 - Morbid Damion Hawkins Active [facility] (severe) obesity due Community to excess calories / Hospital E66.01(ICD-10) Repository Unknown Z68.41 - Body mass Damion Hawkins Active [place] 9 index (BMI) 40.0-44.9, Community adult / Z68.41(ICD-10) Hospital Repository Unknown 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 / I25.10(ICD-10) Unknown E78.00 - Pure Harinder Gracia Active [place] 8 hypercholesterolemia, Community unspecified / Hospital E78.00(ICD-10) Repository Unknown E78.1 - Pure Harinder Gracia Active [place] 8 hyperglyceridemia / Community E78.1(ICD-10) Hospital Repository Unknown R07.89 - Other chest Harinder Gracia Active [place] 8 pain / R07.89(ICD-10) Community Hospital Repository Unknown Z95.5 - Presence of Harinder Gracia Active [place] 8 coronary angioplasty Community implant and graft / Hospital Z95.5(ICD-10) Repository Unknown M54.10 - Harinder Gracia [facility] [place] [facility] Radiculopathy, site Community unspecified / Hospital M54.10(ICD-10) Repository Unknown M54.30 - Sciatica, Carlinee, Active [place] [facility] unspecified side / ewongbe Community M54.30(ICD-10) Hospital Repository Unknown E11.9 - Type 2 Oleghe, Active [place] [facility] diabetes mellitus [facility] without complications Hospital / E11.9(ICD-10) Repository Unknown E11.8 - Type 2 Harriett Christina Active [place] [facility] diabetes mellitus with J [facility] [facility] Community unspecified Hospital complications / Repository E11.8(ICD-10) Unknown I10 - Essential Harriett Christina Active [place] 8 (primary) hypertension J [employer] [facility] Community / I10(ICD-10) Hospital Repository Unknown E66.3 - Overweight / Harriett Christina Active [place] [facility] E66.3(ICD-10) J WIRE CHIEF-C [facility] Hospital Repository Unknown R06.09 - Other forms Ann Active [place] 8 of dyspnea / [facility] R06.09(ICD-10) Hospital Repository Unknown Z23 - Encounter for Ann Active [place] [facility] immunization / [facility] Z23(ICD-10) Hospital Repository Final Type 2 diabetes JUAN PABLO [place] [address] diagnosis mellitus without [facility] (discharge) complications / Repository E11.9(ICD-10) Final Obstructive sleep JUAN PABLO [place] [address] diagnosis apnea (adult) [facility] (discharge) (pediatric) / Repository G47.33(ICD-10) Final Hyperlipidemia, JUAN PABLO [place] [address] diagnosis unspecified / [facility] (discharge) E78.5(ICD-10) Repository Final Deviated nasal septum JUAN PABLO [place] [address] diagnosis / J34.2(ICD-10) [facility] (discharge) Repository Admitting Benign neoplasm of mid JUAN PABLO [place] [address] diagnosis ear, nasl cav and [facility] Hospitals accessory sinuses / Repository D14.0(ICD-10) Final Benign neoplasm of mid JUAN PABLO [place] [address] diagnosis ear, nasl cav and [facility] (discharge) accessory sinuses / Repository D14.0(ICD-10) Final Body mass index (BMI) JUAN PABLO [facility] 8 diagnosis 40.0-44.9, adult / [facility] (discharge) Z68.41(ICD-10) Repository Final Chronic sinusitis, JUAN PABLO [facility] 8 diagnosis unspecified / [facility] (discharge) J32.9(ICD-10) Repository Final Hypertrophy of nasal JUAN PABLO [facility] 8 diagnosis turbinates / [facility] (discharge) J34.3(ICD-10) Repository Final Essential (primary) JUAN PABLO [facility] 8 diagnosis hypertension / [facility] (discharge) I10(ICD-10) Repository Final Athscl heart disease JUAN PABLO [facility] 8 diagnosis of [place] coronary [facility] (discharge) artery w/o ang pctrs / Repository I25.10(ICD-10) Final Chronic atrial JUAN PABLO [facility] 8 diagnosis fibrillation / [facility] (discharge) I48.2(ICD-10) Repository Final Obesity, unspecified / JUAN PABLO [facility] 8 diagnosis E66.9(ICD-10) [facility] (discharge) Repository Final Emphysema, unspecified JUAN PABLO [facility] 8 diagnosis / J43.9(ICD-10) [facility] (discharge) Repository Final Personal history of JUAN PABLO [facility] 8 diagnosis other venous [facility] (discharge) thrombosis and Repository embolism / Z86.718(ICD-10) Final intermediate card tender (current) Magalis ALMEIDA [place] 8 diagnosis use of oral [facility] (discharge) hypoglycemic drugs / Repository Z79.84(ICD-10) Final Presence of coronary JUAN PABLO [facility] 8 diagnosis angioplasty implant [facility] (discharge) and graft / Repository Z95.5(ICD-10) Admitting Chronic ethmoidal JUAN PABLO [facility] 8 diagnosis sinusitis / [facility] J32.2(ICD-10) Repository Admitting Nasal congestion / JUAN PABLO [facility] 8 diagnosis R09.81(ICD-10) [facility] Repository Final Nasal congestion / JUAN PABLO [facility] 8 diagnosis R09.81(ICD-10) [facility] (discharge) Repository Unknown R04.0 - Epistaxis / Ross, Damion Active [place] [facility] R04.0(ICD-10) Community Hospital Repository Unknown E78.5 - Harinder Gracia Active [place] [facility] Hyperlipidemia, Community unspecified / Hospital E78.5(ICD-10) Repository Final intermediate card tender (current) Magalis ALMEIDA 8 diagnosis use of aspirin / [facility] (discharge) Z79.82(ICD-10) Repository Final intermediate (current) Magalis ALMEIDA 8 diagnosis use of insulin / [facility] (discharge) Z79.4(ICD-10) Repository Final Neoplasm of uncertain Magalis ALMEIDA 8 diagnosis behavior of other [facility] (discharge) respiratory organs / Repository D38.5(ICD-10) Final Other specified Magalis ALMEIDA 8 diagnosis disorders of nose and [facility] (discharge) nasal sinuses / Repository J34.89(ICD-10) Final Anosmia / Magalis ALMEIDA 8 diagnosis R43.0(ICD-10) [facility] (discharge) Repository Active Localized swelling, JUAN PABLO Active [place] 8 mass and lump, head / [facility] Hospitals R22.0(ICD-10) Repository Admitting Localized swelling, Magalis ALMEIDA 8 diagnosis mass and lump, head / [facility] Hospitals R22.0(ICD-10) Repository Admitting Deviated nasal septum Magalis ALMEIDA 8 diagnosis / J34.2(ICD-10) [facility] Repository Unknown E87.6 - Hypokalemia / Kirit, Nicho Chi Active [place] 8 E87.6(ICD-10) [facility] Repository Final Encounter for Dr. Ceasar Active [place] 8 diagnosis screening for [facility] (discharge) cardiovascular Repository disorders / Z13.6(ICD-10) Final Hypertensive heart Dr. Ceasar Active [place] 8 diagnosis disease with heart [facility] (discharge) failure / Repository I11.0(ICD-10) Final Heart failureCeasar Dr. Active [place] 8 diagnosis unspecified / [facility] (discharge) I50.9(ICD-10) Repository Final Anxiety disorderCaesar Dr. Active [place] 8 diagnosis unspecified / [facility] (discharge) F41.9(ICD-10) Repository Final Dependence on Dr. Ceasar Active [place] 8 diagnosis supplemental oxygen / [facility] (discharge) Z99.81(ICD-10) Repository Final Presence of other Dr. Ceasar Active [place] 8 diagnosis cardiac implants and [facility] (discharge) grafts / Repository Z95.818(ICD-10) Final Old myocardial Dr. Ceasar Active [place] 8 diagnosis infarction / [facility] (discharge) I25.2(ICD-10) Repository Final Gastro-esophageal Dr. Ceasar Active [place] 8 diagnosis reflux disease without [facility] (discharge) esophagitis / Repository K21.9(ICD-10) Final Unspecified atrial Dr. Ceasar Active [place] 8 diagnosis fibrillation / [facility] (discharge) I48.91(ICD-10) Repository Final Personal history of Dr. Ceasar Active [place] 8 diagnosis nicotine dependence / [facility] (discharge) Z87.891(ICD-10) Repository Final Anemia, unspecified / Dr. Ceasar Active [place] 8 diagnosis D64.9(ICD-10) [facility] (discharge) Repository Final Chronic obstructive Dr. Ceasar Active [place] 8 diagnosis pulmonary disease, [facility] (discharge) unspecified / Repository J44.9(ICD-10) Final intermediate card tender (current) Dr. Ceasar Active [place] 8 diagnosis use of [facility] (discharge) antithrombotics/antipl Repository atelets / Z79.02(ICD-10) Active Other specified Dr. Ceasar Active [place] 8 counseling / [facility] Z71.89(ICD-10) Repository Final Procedure and Magalis ALMEIDA [place] 8 diagnosis treatment not carried [facility] (discharge) out for other reasons Repository / Z53.8(ICD-10) Active Other specified JUAN PABLO Active [place] 8 disorders of nose and [facility] nasal sinuses / Repository J34.89(ICD-10) Unknown J34.2 - Deviated nasal NUSRAT CUELLAR Active [place] 8 septum / J34.2(ICD-10) [facility] Hospital Repository Final Localized swelling, Magalis ALMEIDA [place] 8 diagnosis mass and lump, head / [facility] (discharge) R22.0(ICD-10) Repository Unknown R94.31 - Abnormal Melita, [place] Active [place] 8 electrocardiogram Community [ECG] [EKG] / Hospital R94.31(ICD-10) Repository Unknown R09.81 - Nasal NUSRAT CUELLAR Active [place] 8 congestion / Community R09.81(ICD-10) Hospital Repository Unknown R22.0 - Localized NUSRAT CUELLAR Active [place] [facility] swelling, mass and Community lump, head / Hospital R22.0(ICD-10) Repository Unknown I48.91 - Unspecified Harinder Gracia Active [place] [facility] atrial fibrillation / Community I48.91(ICD-10) Hospital Repository Unknown J98.4 - Other Harinder Gracia Active [place] [facility] disorders of lung / Community J98.4(ICD-10) Hospital Repository PROCEDURES PROCEDURES DATE CODE DESCRIPTION STATUS SOURCE 11/06/2017 [id number](ICD10- 30NT4FR Completed [facility] Rep[facility] 11/06/2017 [id number](ICD10- 49OD6EU [facility]pleted [facility] Repository 11/06/2017 [id number](ICD10- 86BA8KA Completed [facility] Repository 11/06/2017 [id number](ICD10- 31ID3QH Completed [facility] Repository 11/06/2017 [id number](ICD10- 42GY5XO Completed [facility] Repository 11/06/2017 [id number](ICD10- 52TE0TB Completed [facility] Repository 11/06/2017 [id number](ICD10- 45MH6UO Completed [facility] Repository 11/06/2017 [id number](ICD10- 38TJ0II Completed [facility] Repository 11/06/2017 [id number](ICD10- 5M77JRV Completed [facility] Repository 11/06/2017 [id number](ICD10- 567V61L Completed [facility] Repository 08/07/2017 [id number]([facility]S 50001 Completed [facility] Repository 08/07/2017 [id number]([facility]S 98848 Completed [facility] Repository 06/15/2017 [id number]([facility]S 16727 Completed [facility] Hospitals Repository RESULTS RESULTS PULMONARY VISIT REPORT Observed: 04/11/2018 Status: F Source: [place] 11:37 AM [facility] [place] [address] [place] [address] OFFICE VISIT Date of Service: 04/11/18 MR#: [id number] Acct: [id number] Name: SHADE TEIXEIRA Rep #: [id number] : 1955 Provider: Damion Hawkins MD Age/Sex: 62/M Location: [facility] Status: Signed Assessment AND Plan Problems 1. FAVIAN (obstructive sleep apnea) G47.33 2. Chronic hypoxemic respiratory failure J96.11 3. Morbid obesity with BMI of 40.0-44.9, adult E66.01; Z68.41 Plan Patient reports loosening head strap secondary to abscess formation. Paradoxically, patient's leak is much improved compared to previous. Stressed to the patient that he was likely overtightening his head strap. Patient will loosen his head strap on a weekly basis. Patient's AHI continues to do well. Patient does have some lower extremity edema, but no rales noted on exam. Would defer to patient's primary care physician if additional doses of Lasix would be needed on a as needed basis. Continue BiPAP at current settings. Encourage weight loss. Lasix per PCP. Plan Detail Follow Up 6 Months (CSM) HPI 3 M FU: Chief Complaint: Daytime fatigue Details: Patient is a 62-year-old male, currently under the care of Dr. Raymond, who presents for evaluation secondary to daytime fatigue. Since last visit, patient reports he did go to the ER secondary to an abscess on his head that required drainage and antibiotics. Patient states he is healed well and has no complications. Patient overall feels that he is subjectively unchanged compared to previous. Patient has been compliant with his FAVIAN therapy. Patient states that he loosen his mask and has noted improvement in his overall leak. Patient does report increased lower extremity swelling. Patient admits to some dietary indiscretions thinks it may be from increased salt intake. Patient has been using extra doses of Lasix to compensate, but states that he is running out of these. Patient has established himself with endocrinology and feels his blood sugars are improving. Documentation personally reviewed with the patient Compliance report (March 2018): Compliant 100% of days for an average of 9 hours 52 minutes on BiPAP 17/13 centimeters of water with residual AHI of 0.4 and well controlled leak. HPI Comments Details: Intake Vital Signs04/11/18 Height 5 ft 9 in 04/11/18 Weight: 131.995 kg Intake Visit Reasons: 3 M FU [facility] [place] Vendor: BEE Accompanied by: Self Allergies No Known Allergies Allergy (Verified 04/11/18 10:38) Medications Glimepiride [Amaryl] 4 mg PO BID 01/07/15 [History Confirmed 04/11/18] Metformin HCl [Glucophage] 1,000 mg PO BIDCM 01/07/15 [History Confirmed 04/11/18] Metoprolol(XL)Succ [Toprol Xl (Beta Robinson)] 100 mg PO BID 01/07/15 [History Confirmed 04/11/18] Potassium Chloride [Klor-Con M20] 40 meq PO TID 06/30/17 [History Confirmed 04/11/18] amlodipine 10 mg tablet 10 mg PO DAILY #30 tab 07/18/17 [Rx Confirmed 04/11/18] clopidogrel 75 mg tablet 75 mg PO DAILY #90 tab 07/18/17 [Rx Confirmed 04/11/18] nitroglycerin 0.4 mg sublingual tablet 0.4 mg SUBLINGUAL Q5M PRN #25 tab 07/18/17 [Rx Confirmed 04/11/18] albuterol sulfate HFA 90 mcg/actuation aerosol inhaler 2 puff INHALATION Q4H PRN PRN #18 g 09/26/17 [Rx Confirmed 04/11/18] atorvastatin 80 mg tablet 40 mg PO QHS tab 01/22/18 [History Confirmed 04/11/18] furosemide 40 mg tablet 40 mg PO BID 01/22/18 [History Confirmed 04/11/18] naproxen sodium 220 mg capsule 220 mg PO BID PRN 02/08/18 [History Confirmed 04/11/18] paroxetine 40 mg tablet 40 mg PO DAILY 02/08/18 [History Confirmed 04/11/18] ranolazine ER 500 mg tablet,extended release,12 hr 500 mg PO QDAY tab 02/08/18 [History Confirmed 04/11/18] losartan 50 mg tablet 25 mg PO DAILY #30 tab 02/13/18 [Rx Confirmed 04/11/18] Ondansetron [Zofran Odt] 8 mg PO Q8H PRN PRN #10 tab 02/23/18 [Rx Confirmed 04/11/18] insulin lispro (U- 100) 100 unit/mL subcutaneous solution See Rx Instructions SC TID #20 ml 03/12/18 [Rx Confirmed 04/11/18] insulin syringe-needle U-100 1 mL 30 gauge x 1/2 See Dose Instructions .ROUTE .MEDSUPPLY #100 ea 03/13/18 [Rx Confirmed 04/11/18] insulin detemir (U- 100) 100 unit/mL subcutaneous solution 55 unit SC BID ml 03/19/18 [History Confirmed 04/11/18] icosapent ethyl 1 gram capsule 2 g PO BID #180 cap 03/20/18 [Rx Confirmed 04/11/18] aspirin 81 mg chewable tablet 81 mg PO DAILY@0800 #90 tab 03/28/18 [Rx Confirmed 04/11/18] metolazone 2.5 mg tablet 2.5 mg PO .COMPLEX #24 tab 03/28/18 [Rx Confirmed 04/11/18] PFSH Medical History Pure hypercholesterolemia (Chronic) Essential (primary) hypertension (Chronic) Atherosclerosis of coronary artery of [place] heart without angina pectoris (Chronic) Chronic hypoxemic respiratory failure (Chronic) FAVIAN (obstructive sleep apnea) (Chronic) Dyspnea on exertion (Chronic) Acquired left ventricular hypertrophy (Chronic) Abnormal chest xray (Chronic) Chest discomfort (Chronic) Near syncope (Chronic) Overweight (Chronic) Hypoxia (Chronic) Hypertriglyceridemia (Chronic) Morbid obesity with BMI of 40.0-44.9, adult (Chronic) Epistaxis (Resolved) Type 2 diabetes mellitus (Chronic) History of DVT (deep vein thrombosis) (Chronic) Osteoarthritis (Chronic) History of pulmonary embolism (Resolved) Surgical History History of coronary artery stent placement (Chronic 05/11/16) History of eye surgery (Acute) History of appendectomy (Resolved) 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/17) History of hip replacement (Resolved) History of intestinal surgery (Resolved) History of knee surgery (Resolved) History of tonsillectomy and adenoidectomy (Resolved) Family History Mother Colon cancer Sister CAD (coronary artery disease) CABG x 5 Diabetes Myocardial infarction, Onset Age: 67 Father Crohns disease Social History Smoking Status: Never smoker how long ago did patient quit smokin years ago second hand exposure: No alcohol intake: former year quit: 2003 substance use type: does not use caffeine: Yes Type: coffee Number of servings: 2, carbonated beverages Number of servings: 2 what type of physical activity do you participate in: none Review of Systems Const CONSTITUTIONAL: Positive fatigue; negative anorexia, body ache, chills, daytime sleepiness, fever(s), night sweats, oral thrush, stops breathing during sleep, weight loss, sleeping in chair, weight loss, weight gain, frequent colds, seasonal allergies, other, headache(s) or orthopnea EETM Ear Nose Throat Mouth: Positive hearing normal; negative hoarseness, dry mouth in morning, change in vision, itchy eyes, eye pain, swallowing Difficulty, ear pain, headache(s), mouth pain, nasal congestion, nasal discharge, sinus pain, sinus pressure, sore throat, other, hard of hearing, nose bleed or post nasal drip Cardio Cardiovascular: Positive edema Location: lower extremity Right/Left: Left, Right; negative chest pain, chest pain at rest, chest pain with activity, irregular heart rhythm, shortness of breath when lying down, palpitations, other or murmur Resp Respiratory: Positive as per HPI and shortness of breath shortness of breath: Positive with activity; negative pain with cough, wheezing, chest congestion, cough, chest tightness, pain on inspiration, inhalers, increase use of rescue inhalers, snoring, apnea or other Gastro Gastrointestional: Negative bloody stools, change in appetite, difficulty swallowing, reflux, hematemesis, melena stool, loose stool, constipation or other Genitourinary: Negative blood in urine, nocturia, pain with urination or other Musc Musculoskeletal: Negative body pain, back pain, neck pain or other Skin/Breast Skin/Breast: Negative dry skin, itching, unusual bruising, breast lump, other or rash Neuro Neurological: Negative restless legs, confusion, weakness or other Psych Psychocological: Negative abnormal sleep pattern, anxiety, thoughts of hurting self/others, hopelessness or other Lymph Lymphatic: Negative easy bleeding, easy bruising, other or swollen lymph nodes Exam Const Constitutional: Positive conversant, cooperative, in no acute respiratory distress, healthy appearing, well developed, well nourished, good hygiene, obese and appears older than stated age; negative wearing supplemental oxygen or smells of smoke Head Head: Positive normocephalic and atraumatic; negative cyanosis of lips/distal nose, frontal sinus tenderness or maxillary sinus tenderness Eyes Eye: Positive clear conjunctiva; negative nystagmus, scleral abnormality or cataract present Ears Ear: Positive hearing normal and external ears normal; negative hard of hearing Nose Nose: Positive external nose normal, septum normal and no nasal discharge; negative epistaxis or nasal polyp Mouth Mouth: Positive oral mucosae normal, no lesions and crowded posterior oropharynx; negative post nasal drip, malodorous breath or oral thrush present Mallampati Score: III: Mallampati Score Neck Neck: Positive normal visual inspection, full ROM, trachea midline and male neck greater than 43 cm (17 in); negative lymphadenopathy or JVD Chest Wall Chest: Positive normal inspection of the chest and symmetric chest movement; negative crepitus or tenderness Resp lung sounds: Positive diminished and prolonged expiratory time; negative wheezes, rhonchi, rales, use of accessory muscles, wheeze present on forced exhalation or dullness to percussion Cardio Cardiac: Positive regular rate, regular rhythm, S1 normal and S2 normal; negative murmur, rub or gallop GI GI: Positive normal to inspection, normal bowel sounds and obese; negative distended, ascites or epigastric tenderness Genitourinary: Positive deferred Musc Musculoskeletal: Positive steady gait; negative using an assistive device for ambulation, kyphosis or scoliosis Skin Pulmonary Skin Exam: Positive intact; negative rash, lesion, ulcers, erythema or dermal atrophy Pulses Pulse: Yes radial pulses present Extremities Extremities: Yes capillary refill normal, No clubbing, No cyanosis, Yes edema (2+ lower extremity) Location: lower extremity Neuro Neurologic: Yes conversant, Yes no focal neuro deficits, Yes normal concentration, Yes understands questions, Yes cooperative, Yes normal cognition, Yes normal coordination Lymph Lymphatic: No lymphadenopathy Psych Appearance: Positive grossly normal Mental Status: Positive mental status grossly normal Mood: Positive congruent mood Affect: Positive normal affect Coding Level of Care Code Off vis,est,level 3 Diagnoses FAVIAN (obstructive sleep apnea) G47.33 Chronic hypoxemic respiratory failure J96.11 Morbid obesity with BMI of 40.0-44.9, adult E66.01; Z68.41 04/11/18 1137 <Electronically signed by Damion Hawkins MD> Date Damion Hawkins MD [facility] Signature: Date (if applicable) CC: Mery Raymond MD STRESS TEST ECHO W/ Observed: 03/30/2018 Status: F Source: [place] CONTRAST 12:31 PM REPOSITORY [facility] Cardiovascular Services [address] [place] [address] Stress Test Echo W/Contrast MR#: [id number] Acct: [id number] Name: SHADE TEIXEIRA Rep #: [id number] : 1955 62 From: Harinder Gracia MD Primary Care: Mery Raymond MD Status: REG CLI Ordering Dr: Harinder Gracia MD Sex: M C Version 2 Stress Results Protocol: Dobutamine Protocol Maximum Predicted HR: 159 bpm Target HR: 135 bpm % Maximum Predicted HR: 89 % DurationHeart Rate Stage (mm:ss) (bpm) BP Dose Comment BASELINE 76 149/89 2CC DEFINTIY STAGE 1 3:00 74 168/8810.001CC DEFINITY STAGE 2 3:00 90 188/7520.00 STAGE 3 3:00 98 168/7830.00.25 MG ATROPINE STAGE 4 3:37 142 139/8240.00.5 MG ATROPINE RECOVERY 96 133/73 2CC DEFINITY Stress Duration: 12:37 mm:ss Maximum Stress HR: 142 bpm Baseline Echocardiogram Findings The estimated ejection fraction is 65 %. Stress Echo Wall motion Data Resting WM Intermediate WM Stress WM Resting Wall Motion Wall Motion Stress No regional wall motion No regional wall motion abnormalities noted. abnormalities noted. EKG Data The baseline ECG displays normal sinus rhythm. The patient was titrated from 10 mcg to a maximum of 40 mcg of dobutamine during the stress. The maximum heart rate attained was 142 beats per minute. This was 89% of maximum predicted heart rate. At peak infusion, upsloping ST changes only were noted, which did not meet the criteria for ischemia. No clinical angina was noted. Interpretation Summary The estimated ejection fraction is 65 %. Normal adequate dobutamine echocardiogram. Negative for ischemia by echocardiographic criteria. No anginal symptoms noted. Patient did have downsloping ST segment depression along the inferior lateral leads during infusion which did not quite reach significance for ischemia. Rare PVC noted. Appropriate blood pressure response to dobutamine. Final LVEF is 75%. Decreased sensitivity due to poor echo windows requiring Definity enhancing agent. Test terminated due to the attainment of target heart rate. Ordering Physician: Harinder Gracia Referring Physician: Harinder Gracia Performed By: 03/30/18 1231 Date Harinder Gracia MD CC: Harinder Gracia MD; Mery Raymond MD Date Dictated: 03/28/18 1259 Date Transcribed: 03/28/18 1508 Director Counseling Bureau: Signed LUMBAR SPINE 2 OR 3 Observed: 03/28/2018 Status: F Source: [place] VIEWS 1:35 PM REPOSITORY [facility] Imaging Services [address] [place] [id number] Lumbar Spine 2 or 3 Views MR#: [id number] Acct: [id number] Name: SHADE TEIXEIRA Rep #: [id number] : 1955 M 62 From: Ric Lowe DO PCP: Mery Raymond MD Status: REG CLI Study: Lumbar Spine 2 or 3 Views Date of Exam: 03/28/18 Exam# [id number] Ordering Dr: Mery Raymond MD STUDY: X-RAY - LUMBAR SPINE REASON FOR EXAM: Male, 62 years old. Low back pain, no injury TECHNIQUE: 3 view(s) of the lumbar spine were obtained. COMPARISON: None FINDINGS: Normal lumbar lordosis. There is no substantial scoliosis. There is a normal alignment of the vertebrae. There is multilevel endplate spondylosis of the lumbar vertebrae. There is multi-level degenerative disc disease with multi-level disc space narrowing. There is no demonstrated fracture. The soft tissue structures are unremarkable. RAD/Lumbar Spine 2 or 3 Views IMPRESSION: Degenerative changes of the spine, as detailed above. Electronically Signed: Ric Lowe DO at 14:23 EST Tel , Service support , CC: Mery Raymond MD Director Counseling Bureau: Signed LIVER PROFILE Collected: 03/28/2018 Status: F Source: [place] 12:04 PM REPOSITORY TYPE CODE TESTS RESULT OUT OF RANGE REFERENCE UNITS LAB L501.1500 6.4-8.2 g/dL Normal T PROT 7.5 LAB L501.1800 3.2-5.0 g/dL Normal ALB 3.7 LAB L501.1950 2.2-4.2 g/dL Normal GLOB 3.8 LAB L501.4100 15-37 U/L Normal AST 35 LAB L501.4305 45-117 U/L Normal ALK P 78 LAB L501.4405 16-61 U/L Normal ALT 55 LAB L501.4600 0.20-1.00 mg/dL Normal T BILI 0.50 LAB L501.4700 0.00-0.30 mg/dL Normal D BILI 0.14 Performed By: #### L500.3400, L500.4100 #### [facility] [address] [place], [place], [id number] LIPID PROFILE Collected: 03/28/2018 Status: F Source: [place] 12:04 PM REPOSITORY TYPE CODE TESTS RESULT OUT OF RANGE REFERENCE UNITS LAB L501.4900 200 mg/dL Normal CHOL 160 Result Comment: <200 mg/dL Desirable 200-240 mg/dL Borderline >240 mg/dL High Risk LAB L501.5000 mg/dL High TRIG 411 Result Comment: The drugs N-Acetylcysteine and Metamizole may falsely depress this assay. TRIGLYCERIDE IS GREATER THAN 400 mg/dL. LDL RESULT IS INVALID AND WILL NOT BE REPORTED. Serum Triglycerides Reference Interval Normal <150 mg/dL Borderline high 150 - 199 mg/dL High 200 - 499 mg/dL Very High > or = 500 mg/dL LAB L501.6400 mg/dL Low HDL 27 Result Comment: The drugs N-Acetylcysteine and Metamizole may falsely depress this assay. Reference Range HDL <40 mg/dL Low HDL Cholesterol HDL >or= 60 mg/dL High HDL Cholesterol LAB L501.6500 0-130 mg/dL Test Normal not performed LDL LAB L501.6600 5-40 mg/dL Test Normal not performed VLDL Performed By: #### L500.3400, L500.4100 #### [facility] [address] [place], [address] INTERNAL MEDICINE Observed: 03/20/2018 Status: F Source: [place] OFFICE VISIT 4:46 PM REPOSITORY [facility] [address] [place] [address] OFFICE VISIT Date of Service: 03/20/18 MR#: [id number] Acct: [id number] Name: SHADE TEIXEIRA Praveen Rep #: [id number] : 1955 Provider: Mery Raymond MD Age/Sex: 62/M Location: [facility] Status: Signed Intake Vital Signs03/20/18 Body Mass Index (BMI) 43.0 03/20/18 Height 5 ft 9 in 03/20/18 Weight: 290 lb 03/20/18 Body Mass Index (BMI) 42.8 03/20/18 Blood Pressure 147/78 H Intake Visit Reasons: 1 MO FU Chief Complaint: 1 Mo f/u - Weakness legs hips down. Is patient in pain?: No Allergies No Known Allergies Allergy (Verified 03/20/18 14:07) Medications Aspirin [Aspirin, Baby] 81 mg PO DAILY@0800 01/07/15 [History Confirmed 03/20/18] Glimepiride [Amaryl] 4 mg PO BID 01/07/15 [History Confirmed 03/20/18] Metformin HCl [Glucophage] 1,000 mg PO BIDCM 01/07/15 [History Confirmed 03/20/18] Metoprolol(XL)Succ [Toprol Xl (Beta Robinson)] 100 mg PO BID 01/07/15 [History Confirmed 03/20/18] Potassium Chloride [Klor-Con M20] 40 meq PO TID 06/30/17 [History Confirmed 03/20/18] amlodipine 10 mg tablet 10 mg PO DAILY #30 tab 07/18/17 [Rx Confirmed 03/20/18] clopidogrel 75 mg tablet 75 mg PO DAILY #90 tab 07/18/17 [Rx Confirmed 03/20/18] nitroglycerin 0.4 mg sublingual tablet 0.4 mg SUBLINGUAL Q5M PRN #25 tab 07/18/17 [Rx Confirmed 03/20/18] albuterol sulfate HFA 90 mcg/actuation aerosol inhaler 2 puff INHALATION Q4H PRN PRN #18 g 09/26/17 [Rx Confirmed 03/20/18] atorvastatin 80 mg tablet 40 mg PO QHS tab 01/22/18 [History Confirmed 03/20/18] furosemide 40 mg tablet 40 mg PO BID 01/22/18 [History Confirmed 03/20/18] metolazone 2.5 mg tablet 2.5 mg PO ONCE tab 02/08/18 [History Confirmed 03/20/18] naproxen sodium 220 mg capsule 220 mg PO BID PRN 02/08/18 [History Confirmed 03/20/18] paroxetine 40 mg tablet 40 mg PO DAILY 02/08/18 [History Confirmed 03/20/18] ranolazine ER 500 mg tablet,extended release,12 hr 500 mg PO QDAY tab 02/08/18 [History Confirmed 03/20/18] losartan 50 mg tablet 25 mg PO DAILY #30 tab 02/13/18 [Rx Confirmed 03/20/18] Ondansetron [Zofran Odt] 8 mg PO Q8H PRN PRN #10 tab 02/23/18 [Rx Confirmed 03/20/18] insulin lispro (U- 100) 100 unit/mL subcutaneous solution See Rx Instructions SC TID #20 ml 03/12/18 [Rx Confirmed 03/20/18] insulin syringe-needle U-100 1 mL 30 gauge x 1/2 See Dose Instructions .ROUTE .MEDSUPPLY #100 ea 03/13/18 [Rx Confirmed 03/20/18] insulin detemir (U- 100) 100 unit/mL subcutaneous solution 55 unit SC BID ml 03/19/18 [History Confirmed 03/20/18] [facility] Medical History Pure hypercholesterolemia (Chronic) Essential (primary) hypertension (Chronic) Atherosclerosis of coronary artery of [place] heart without angina pectoris (Chronic) Chronic hypoxemic respiratory failure (Chronic) FAVIAN (obstructive sleep apnea) (Chronic) Dyspnea on exertion (Chronic) Acquired left ventricular hypertrophy (Chronic) Abnormal chest xray (Chronic) Chest discomfort (Chronic) Near syncope (Chronic) Overweight (Chronic) Hypoxia (Chronic) Hypertriglyceridemia (Chronic) Morbid obesity with BMI of 40.0-44.9, adult (Chronic) Epistaxis (Resolved) Type 2 diabetes mellitus (Chronic) History of DVT (deep vein thrombosis) (Chronic) Osteoarthritis (Chronic) History of pulmonary embolism (Resolved) Surgical History History of coronary artery stent placement (Chronic 05/11/16) History of eye surgery (Acute) History of appendectomy (Resolved) 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/17) History of hip replacement (Resolved) History of intestinal surgery (Resolved) History of knee surgery (Resolved) History of tonsillectomy and adenoidectomy (Resolved) Family History Mother Colon cancer Sister CAD (coronary artery disease) CABG x 5 Diabetes Myocardial infarction, Onset Age: 67 Father Crohns disease Social History Smoking Status: Never smoker how long ago did patient quit smokin years ago second hand exposure: No alcohol intake: former year quit: 2003 substance use type: does not use caffeine: Yes Type: coffee Number of servings: 2, carbonated beverages Number of servings: 2 what type of physical activity do you participate in: none HPI HPI Chief Complaint: 1 Mo f/u - Weakness legs hips down. Details: SHADE TEIXEIRA, is a 62 M who presents to the office today for follow-up. He is concerned about recent onset left lower extremity weakness with pain and numbness. Denies any known precipitating factor and to the best of his knowledge he has had no similar pain or experience in the past. He has had no falls but a near fall episode was experienced yesterday. He denies numbness or tingling around his perineal area. He also reports a dull pain around his lower back and left hip. The has been no change in his bowel or bladder habits. ROS Const Constitutional: No chills, fatigue, fever(s), frequent falls, malaise, weakness, sleep problems or change in appetite Eyes Eyes: No blurry vision, change in vision, double vision, discharge or visual disturbances ENT ENT: No abnormal hearing, ear pain, ear pressure, tinnitus or dizziness/vertigo Resp Respiratory: No cough, shortness of breath or wheezing Cardio Cardiology: No chest pain at rest, chest pain with exertion, shortness of breath, dyspnea on exertion, generalized swelling, irregular heart rhythm, lightheadedness, orthopnea, fast heart rate or palpitations Gastro GI: No abdominal pain, change in bowel habits, constipation, diarrhea, nausea/dyspepsia or vomiting Musc Musculoskeletal: Positive for numbness and tingling; no back pain, joint swelling or limited range of motion Skin Skin: No change in skin color, itching, rash or wounds Breast Breast: No breast lump or breast pain Neuro Neurology: Positive for numbness and tingling; no frequent falls, weakness, visual disturbances, abnormal hearing, unsteady gait/balance, dizziness, loss of vision or memory loss Psych Psychiatric: No change in appetite, No memory loss, No anxiety, No depression, No Thoughts of harming yourself/Others Endo Endocrine: No fatigue, heat intolerance, increased thirst/drinking, increased hunger or increased urination Aller/Imm Allergy/Immunologic: No wheezing, itchy eyes or seasonal allergy symptoms Brett/Lymp Hematologic/Lymphatic: No easy bleeding, easy bruising or enlarged lymph nodes Exam Const General: cooperative, no acute distress Nutritional Appearance: obese Orientation: alert, awake, oriented x3 HENMT Head: atraumatic, normocephalic, normal to inspection Ears: hearing grossly normal bilaterally Resp Effort AND Inspection: normal respiratory effort, able to speak in complete sentences Auscultation: Bilateral: Clear to Auscultation Cardio Rate: regular rate Rhythm: regular rhythm Heart Sounds: S1 normal, S2 normal GI Inspection: obesity Palpation: soft, no hepatosplenomegaly Musc Thoracic/Lumbar Spine: straight leg raise negative bilaterally Neuro General: alert, awake, oriented x3, moves all extremities, CN's II-XI intact bilaterally Extrem General: pedal edema Psych Mental Status: mental status grossly normal Mood: congruent mood Affect: normal affect Assessment AND Plan 1. Sciatica M54.30 Plan Current symptoms of left lower extremity weakness with associated lateral hip pain and numbness might be due to sciatica. X-ray ordered and referred to physical therapy. If no significant improvement or if worsening is noted with therapy, will order an MRI. Advised to call with any significant concerns or worsening. Orders Referrals: 2. Hypertriglyceridemia E78.1 Plan Chronic. Currently on atorvastatin. Will add Vascepa. Continue lifestyle and dietary modifications. This note was generated with [employer] dictation software. It may contain incorrect words, spelling, and punctuation that were not noted in checking the note before signing. Plan Detail Other Orders Orders: Coding Level of Care Code Off vis,est,level 4 Diagnoses Sciatica M54.30 Hypertriglyceridemia E78.1 03/20/18 1646 <Electronically signed by Mery Raymond MD> Date Mery Raymond MD [employer] Signature: Date (if applicable) CC: CARDIOLOGY VISIT Observed: 03/19/2018 Status: F Source: [place] REPORT 10:12 AM REPOSITORY [facility] [address] [place], [place] [address]jet. [address] [place] [address] OFFICE VISIT Date of Service: 03/19/18 MR#: [id number] Acct: [id number] Name: SHADE TEIXEIRA Rep #: [id number] : 1955 Provider: Harinder Gracia MD Age/Sex: 62/M Location: [facility] [place] Status: Signed HPI HPI Chief Complaint: Routine f/u Details: Reffering physician: Dr. Beth This is a 62-year-old morbidly obese white male who presents today for a cardiovascular follow up. He has a history of diabetes, hypertension, coronary artery disease, hypercholesterolemia, obstructive sleep apnea, pulmonary embolus in 2008. He has no family history of cardiac disease. As part of his previous cardiac workup he underwent a walking stress test on 12/15/14 which was submaximal but nonetheless had a hypertensive blood pressure response to exercise. It was at that time that Imdur was added. He had no chest pain symptoms, but did have some dynamic ST segment depression. His imaging study was negative.Underwent a diagnostic coronary angiogram which indicated he may have significant mid LAD and PDA disease. He underwent FFR evaluation at [facility] on 01/21/15. At [facility] his FFR of his LAD was found to be 0.88, and his FFR of his PDA was found to be 0.99. No intervention was performed. patient was found to be profoundly hypertensive,requiring a nitroglycerin drip. In 11/2015 patient has a stress echocardiogram which was abnormal and demonstrated an estimated ejection fraction is 65 %, Positive for ischemia by ECG criteria. He developed [address] depression along infero/lateral leads during exercise which resolved by 7:50 in to recovery. No associated wall motion abnormalities. No anginal symptoms noted. Rare PVC noted. The test terminated due to dyspnea and difficulty keeping up with treadmill. Appropriate BP response to exercise. Final LVEF=75%. Patient had continued chest pain, and was referred for angioplasty of the LAD. On 05/11/16, he underwent elective angioplasty and drug-eluting stenting. Patient had minimal disease of his left circumflex, RCA and PDA. During his previous office visit, his Imdur was decreased due to lightheadedness and his cardiac rehab was placed on hold due to orthostatic hypotension as well. His metolazone was also decreased to and Sundays as well. The patient states that since being stented, his chest pain and shortness of breath has significantly improved, however he still notes dyspnea on exertion and midsternal chest discomfort at times with exertion, but the frequency has decreased, And the quality of this chest pain is different than his previous angina. Patient was a chronic O2 therapy and has not participated in cardiac rehab due to history of hypertension. He denies any lightheadedness, dizziness,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 for good health. 4. The patient was encouraged to lose weight for good health 5. The importance of monitoring blood sugar regularly was reviewed. 6. The importance of monitoring the HBA1c level regularly was reviewed. 7. The importance of prper foot care and regularly checking feet to prevent sores and loss of limbs was reviewed. 8. The importance of keeping BP at or below 130/80 to prevent stroke, heart attacks, kidney failure, blindness was reviewed. Spent approximately 30 minutes with patient with over 50% of time spent in discussion and counseling regarding medication adjustment, symptoms and treatment of hypoglycemia, diet adherence, and checking BG before driving. Coding Level of Care Code Off vis,est,level 4 Diagnoses Type 2 diabetes mellitus with complication, unspecified whether fpc insulin use E11.8 Diabetes mellitus complication status: with unspecified complications Diabetes mellitus intermodal customer service insulin use: unspecified fpc insulin use status 03/11/18 1806 <Electronically signed by Harriett TEMPLE> Date Harriett TEMPLE Cosigner Signature: Date (if applicable) CC: ENDOCRINOLOGY VISIT Observed: 02/25/2018 Status: F Source: [place] REPORT 8:10 PM REPOSITORY [facility] [address] [place] [address]. [address] [place] [address] OFFICE VISIT Date of Service: 02/15/18 MR#: [id number] Acct: [id number] Name: SHADE TEIXEIRA Rep #: [id number] : 1955 Provider: Harriett Christina NP Age/Sex: 62/M Location: [facility] [place] Status: Signed HPI History of present illness Naomi Teixeira is a 62 year old male who presents as a consult for diabetes type 2. Patient of Dr. Beth but most recently seen by Dr. Raymond. Reports he was diagnosed in 2004. Historically he was placed on U-500 insulin at a total of over 200 units daily. Currently patient reports taking levemir twice daily. Pt denies difficulty with injections or self monitoring of BG. Denies any signs of infection or irritation at site of injections. Reports taking insulin as directed. Has complex medical history. At time of visit: -Pt denies symptoms of hypertensive emergency (CP,SOB,REA, or blurred vision) and hypotension(dizziness or lightheadedness) -Pt denies symptoms of hypoglycemia ( sweaty, confusion, anxiety, tremor, hunger, palpitations) and hyperglycemia ( polydipsia, polyuria) -Pt denies potential medication adverse effect. SMBG 3+ times daily BG 240-440 am 200 range lunch sl higher 200-300 range pre dinner 200 range or low 300 range Diet Breakfast has breakfast bowl (sausage, egg combo Lunch varied; left overs Dinner chicken, pasta, green shaver. Exercise No Exam Const General: cooperative, no acute distress Nutritional Appearance: obese Orientation: alert, awake, oriented x3 HENMT Head: atraumatic, normocephalic, normal to inspection Ears: hearing grossly normal bilaterally Resp Effort AND Inspection: normal respiratory effort, able to speak in complete sentences Auscultation: Bilateral: Clear to Auscultation Cardio Rate: regular rate Rhythm: regular rhythm Heart Sounds: S1 normal, S2 normal GI Inspection: obesity Palpation: soft, no hepatosplenomegaly Neuro General: alert, awake, oriented x3, moves all extremities, CN's II-XI intact bilaterally Extrem General: pedal edema bilaterally Location: of the leg Severity: 2+ Psych Mental Status: mental status grossly normal Mood: congruent mood Affect: normal affect Type: type 2, insulin-requiring Glucose control symptoms: Reports high fasting glucose and high post-meal glucose Weight and fatigue symptoms: Denies snoring Cardiopulmonary symptoms: Reports chest pain at rest and lightheadedness; denies dyspnea on exertion or myalgias GI symptoms: Reports diarrhea; denies constipation, nausea/dyspepsia or vomiting Skin and extremity symptoms: Denies erectile dysfunction Other symptoms: Reports change in vision; denies blurry vision Self monitoring: Yes Percentage of fasting blood glucose within goal: >50% of the time Dietary compliance: Diabetes: other Glucose testing: demonstrates correct use of meter Sick day education - understands ketone testing: Yes Physical activity: sedentary lifestyle Intake Vital Signs02/15/18 Height 5 ft 10 in Intake Visit Reasons: diabetes Commercial Coordinator Required: No Accompanied by: Self Allergies No Known Allergies Allergy (Verified 02/23/18 14:56) Medications Aspirin [Aspirin, Baby] 81 mg PO DAILY@0800 01/07/15 [History Confirmed 02/23/18] Glimepiride [Amaryl] 4 mg PO BID 01/07/15 [History Confirmed 02/23/18] Metformin HCl [Glucophage] 1,000 mg PO BIDCM 01/07/15 [History Confirmed 02/23/18] Metoprolol(XL)Succ [Toprol Xl (Beta Robinson)] 100 mg PO BID 01/07/15 [History Confirmed 02/23/18] Potassium Chloride [Klor-Con M20] 40 meq PO TID 06/30/17 [History Confirmed 02/23/18] amlodipine 10 mg tablet 10 mg PO DAILY #30 tab 07/18/17 [Rx Confirmed 02/23/18] clopidogrel 75 mg tablet 75 mg PO DAILY #90 tab 07/18/17 [Rx Confirmed 02/23/18] nitroglycerin 0.4 mg sublingual tablet 0.4 mg SUBLINGUAL Q5M PRN #25 tab 07/18/17 [Rx Confirmed 02/23/18] albuterol sulfate HFA 90 mcg/actuation aerosol inhaler 2 puff INHALATION Q4H PRN PRN #18 g 09/26/17 [Rx Confirmed 02/23/18] atorvastatin 80 mg tablet 40 mg PO QHS tab 01/22/18 [History Confirmed 02/23/18] furosemide 40 mg tablet 40 mg PO BID 01/22/18 [History Confirmed 02/23/18] insulin detemir (U- 100) 100 unit/mL subcutaneous solution 50 unit SC BID ml 02/08/18 [History Confirmed 02/23/18] metolazone 2.5 mg tablet 2.5 mg PO ONCE tab 02/08/18 [History Confirmed 02/23/18] naproxen sodium 220 mg capsule 220 mg PO BID PRN 02/08/18 [History Confirmed 02/23/18] paroxetine 40 mg tablet 40 mg PO DAILY 02/08/18 [History Confirmed 02/23/18] ranolazine ER 500 mg tablet,extended release,12 hr 500 mg PO QDAY tab 02/08/18 [History Confirmed 02/23/18] losartan 50 mg tablet 25 mg PO DAILY #30 tab 02/13/18 [Rx Confirmed 02/23/18] Cephalexin [Keflex] 500 mg PO Q6 #40 cap 02/23/18 [Rx] Insulin Lispro [Humalog] 0 unit SUBCUT ACHS 02/23/18 [History Confirmed 02/23/18] Ondansetron [Zofran Odt] 8 mg PO Q8H PRN PRN #10 tab 02/23/18 [Rx] Nurse's Note: blood sugars : low : 242 high : 442 pt checks bid PFSH Medical History Pure hypercholesterolemia (Chronic) Essential (primary) hypertension (Chronic) Atherosclerosis of coronary artery of [place] heart without angina pectoris (Chronic) Chronic hypoxemic respiratory failure (Chronic) FAVIAN (obstructive sleep apnea) (Chronic) Dyspnea on exertion (Chronic) Acquired left ventricular hypertrophy (Chronic) Abnormal chest xray (Chronic) Chest discomfort (Chronic) Near syncope (Chronic) Overweight (Chronic) Hypoxia (Chronic) Hypertriglyceridemia (Chronic) Morbid obesity with BMI of 40.0-44.9, adult (Chronic) Epistaxis (Resolved) Type 2 diabetes mellitus (Chronic) History of DVT (deep vein thrombosis) (Chronic) Osteoarthritis (Chronic) History of pulmonary embolism (Resolved) Surgical History History of coronary artery stent placement (Chronic 05/11/16) History of eye surgery (Acute) History of appendectomy (Resolved) 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/17) History of hip replacement (Resolved) History of intestinal surgery (Resolved) History of knee surgery (Resolved) History of tonsillectomy and adenoidectomy (Resolved) Family History Mother Colon cancer Sister CAD (coronary artery disease) CABG x 5 Diabetes Myocardial infarction, Onset Age: 67 Father Crohns disease Social History Smoking Status: Never smoker how long ago did patient quit smokin years ago second hand exposure: No alcohol intake: former year quit: 2003 substance use type: does not use caffeine: Yes Type: coffee Number of servings: 2, carbonated beverages Number of servings: 2 what type of physical activity do you participate in: none ROS Const Constitutional: Positive for fatigue; no anorexia, body ache, chills, fever(s), frequent falls, decreased energy, malaise, night sweats, weakness, weight change, sleep problems, abnormal sleep pattern, change in appetite, other, headache(s), snoring or excessive sweating Eyes Eyes: Positive for change in vision and other (eye exam 2+ years ago); no blurry vision, double vision, discharge, dry eyes, bulging eyes, floaters, visual disturbances, eye pain, light sensitivity, spots in vision or tunnel vision ENT ENT: Positive for nasal congestion, sinus pain and nasal discharge; no abnormal hearing, ear pain, ear discharge, ear pressure, hearing loss, tinnitus, dizziness/vertigo, balance problems, nosebleed/epistaxis, nasal obstruction, nose pain, sinus pressure, post nasal drip, headache(s), facial pain, dental pain, dry mouth, bad breath, hoarseness, lip swelling, mouth lesions, mouth pain, sore throat, tongue swelling, throat swelling, other, difficulty swallowing or neck pain Resp Respiratory: Positive for cough, shortness of breath and wheezing; no change in phlegm color, chest congestion, excessive phlegm production, hemoptysis, pain on inspiration, pain with cough, snoring, stridor or other Cardio Cardiology: Positive for chest pain at rest, chest pain with exertion, shortness of breath, generalized swelling and lightheadedness; no leg pain with exertion, excessive sweating, dyspnea on exertion, irregular heart rhythm, orthopnea, radiating jaw, neck or arm pain, fast heart rate, slow heart rate, palpitations or other Gastro GI: Positive for abdominal pain (L upper) and diarrhea; no belching, bloating, change in bowel habits, change in stool character, coffee ground emesis, constipation, cramping, heartburn, difficulty swallowing, feeling full early, excessive flatus, incontinent of stools, Vomiting blood/hematemesis, blood in stool, loose stools, Black,tarry stools, nausea/dyspepsia, pain with swallowing, vomiting or other Genitourinary Male: No difficulty urinating, burning urination, painful urination, urinary incontinence, urinary frequency, urinary urgency, urinary hesitancy, urinary retention, blood in urine, Frequent nighttime urination/ nocturia, post void dribbling, suprapubic fullness, side pain, sexual problems, genital lesions, genital itching, erectile dysfunction, penile discharge, difficulty with ejaculations, blood in semen, scrotal swelling, testicle lump, testicle pain or other Musc Musculoskeletal: No abnormal walking, joint pain, back pain, deformity, joint swelling, limited range of motion, loss of height, muscle cramps, muscle weakness, decreased muscle mass, body aches, neck pain, numbness, radiating pain into limb, stiffness, tingling or other Skin Skin: Positive for hair loss, change in hair and wounds (wound on back of head d/t cpap strap per pt); no acne, nail changes, boil, change in skin color, dry skin, redness, excessive hair growth, yellowing of the skin, lesions, itching, rash, skin pain, skin ulcer, sores, skin swelling or other Breast Breast: No other Neuro Neurology: No frequent falls, weakness, visual disturbances, abnormal hearing, headache(s), abnormal walking, numbness or tingling Psych Psychiatric: No abnormal sleep pattern, No change in appetite Endo Endocrine: Positive for fatigue; no other or excessive sweating Aller/Imm Allergy/Immunologic: Positive for wheezing; no lip swelling, tongue swelling, throat swelling or itchy eyes Assessment AND Plan Problems 1. Hypertension, essential I10 2. FAVIAN (obstructive sleep apnea) G47.33 3. Overweight E66.3 4. Type 2 diabetes mellitus with complication, with long-term current use of insulin E11.9 Plan Weight Was given nutrition referral by PCP. Also was given discussion regarding improtance of weight loss and exercise. Hypertension: To be addressed by PCP. Did discuss importance of diet, exercise, weight loss and lower sodium in diet. Diabetes: Discussed importance of carb counting and monitoring his diet more carefully. Placed on meal insulin and started on low dose and instructed to call with Bg after taking 5 units each meal for 2 days. Will begin titration following these Bg reports. Can consider if he needs U-500 as we progress. no past records available to me. Labs reviewed with patient and notes his A1c 10.1. Discussed importance of diabetes control and consequences if not. Plan Detail Additional Comments 1. Please schedule follow up in 3 weeks 2. Lab work one week before appointment. 3. Discussed importance of regular exercise and recommend starting or continuing a regular exercise program for good health. 4. The patient was encouraged to lose weight for good health 5. The importance of monitoring blood sugar regularly was reviewed. 6. The importance of monitoring the HBA1c level regularly was reviewed. 7. The importance of prper foot care and regularly checking feet to prevent sores and loss of limbs was reviewed. 8. The importance of keeping BP at or below 130/80 to prevent stroke, heart attacks, kidney failure, blindness was reviewed. Spent approximately 60 minutes with patient with over 50% of time spent in discussion and counseling regarding medication adjustment, symptoms and treatment of hypoglycemia, diet adherence, and checking BG before driving. Coding Level of Care Code Off vis,est,level 4 Diagnoses Hypertension, essential I10 FAVIAN (obstructive sleep apnea) G47.33 Overweight E66.3 Type 2 diabetes mellitus with complication, with long-term current use of insulin E11.9 Depression Screen PHQ-2/9 PHQ-2 Over the last 2 weeks, how often have you been bothered by any of the following problems? 1. Little interest or pleasure in doing things: nearly every day 2. Feeling down, depressed, or hopeless: more than half the days Total score: 5 If score is 2 or greater, continue 3. Trouble falling or staying asleep, or sleeping too much: nearly every day 4. Feeling tired or having little energy: several days 5. Poor appetite or overeating: more than half the days 6. Feeling bad about yourself - or that you are a failure or have let yourself and your family down: more than half the days 7. Trouble concentrating on things, such as reading the newspaper or watching television: nearly every day 8. Moving or speaking so slowly that other people could have noticed? - Or the opposite - being so fidgety or restless that you have been moving around a lot more than usual: more than half the days 9. Thoughts that you would be better off or of hurting yourself in some way: more than half the days Total score: 20 If you checked off any problems, how difficult have these problems made it for you to do your work, take care of things at home, or get along with other people?: very difficult Source: Developed by Drs. Markell Steele, Heather Mcintosh, Avinash Linder and colleagues, with an educational trina from [employer]. Scoring: Total Score Depression Severity Action 1-4 Minimal depression No action needed 5-9 Mild depression Repeat PHQ-9 at follow up 10-14 Moderate depression Make tx plan,consider counseling, fup, prescription 02/25/182009 <Electronically signed by Harriett TEMPLE> Date Harriett TEMPLE Cosigner Signature: Date (if applicable) CC: BEDSIDE GLUCOSE Collected: 02/23/2018 Status: F Source: [facility] 6:15 PM REPOSITORY TYPE CODE TESTS RESULT OUT OF REFERENCE UNITS RANGE LAB L501.080 70-110 mg/dL High BEDSIDE GLU 278 Result Comment: MANAGEMENT OF PATIENT CARE PER NURSING PROTOCOL Performed By: #### L501.080 #### [facility] Point of Care [address] [place] [address] EMERGENCY DEPARTMENT Observed: 02/23/2018 Status: F Source: [place] SUMMARY 4:41 PM REPOSITORY [facility] Medical Records Department [address] [place] [address] Emergency Department Summary 02/23/18 1638 MR#: [id number] Acct: [id number] Name: SHADE TEIXEIRA Rep #: [id number] : 1955 62 From: Chauncey Almaguer PCP: Mery Raymond MD Status: REG ER - ER Visit Summary Date of Service: 02/23/18 Chief Complaint: Cellulitis, abscess History of Present Illness: The patient is a 62 M here with concerns of cellulitis posterior scalp. States area and redness enlarging over 2 weeks. Noted bump there 2 months ago. No fevers. He is a diabetic. Denies any drainage. States he does wear a CPAP at night for sleep apnea for 2 years and the straps comes right over it. Has not seen his PCP. Has had abscess in other areas requiring drainage. Physical Examination: General: Alert and oriented 3, no acute distress HEENT: Normocephalic, atraumatic. Moist mucosa membranes. Posterior scalp 4 x 2 cm induration, scaly lesions. No active drainage. Scabbing on the superior aspect of the lesion. Neck: supple, nontender. Cardiovascular: Regular rate and rhythm, no murmurs Respiratory: Normal breath sounds, symmetric, no distress Abdomen: Soft, nontender, nondistended Extremities: Nontender, no edema, pulses intact 4 Neuro: no focal neurological deficits. Test Results: [] Emergency Department Course and Treatment: Patient nontoxic. Vital signs stable. Due to induration and signs discussed incision and drainage for which he agreed. There is open, there is no exudative drainage. Bloody drainage that is controlled. Dressing placed. Wound care discussed. Started on Keflex. He will follow-up with PCP after the weekend for wound care. Signs and symptoms discussed return. All questions were answered. Treatment Plan: [] Disposition: Discharge Impression: Posterior scalp abscess status post incision and drainage This note was generated with [employer] dictation software. It may contain incorrect words, spelling, and punctuation that were not noted in review of the chart prior to signing ED Disposition - Plan for ED Patient: Disposition: Home or Assisted Living Chief Complaint: Abscess Diagnosis: Scalp abscess Instructions: ED Abscess IandD Prescriptions: Cephalexin [Keflex] 500 mg PO Q6 #40 capsule Referrals: Mery Raymond MD [Primary Care Provider] - 3-5 Days What to do if you have Problems For any increased pain, shortness of breath, bleeding, nausea or vomiting, chest pain, or any unexpected problems, contact your Primary Care Provider. Call [facility] ([phone]) or report to the closest Emergency Room. Call 911 if necessary. 02/23/18 1641 <Electronically signed by Chauncey Almaguer> Date Chauncey Almaguer Cosigner Signature (If Indicated): Date CC: Mery Raymond MD INTERNAL MEDICINE Observed: 02/12/2018 Status: F Source: [facility] OFFICE VISIT 1:05 PM [facility] Internal Medicine [address] [place] [address] [address] [place] [address] OFFICE VISIT Date of Service: 02/08/18 MR#: [id number] Acct: [id number] Name: SHADE TEIXEIRA Praveen Rep #: [id number] : 1955 Provider: Mery Raymond MD Age/Sex: 62/M Location: [facility] [place] Status: Signed Intake Vital Signs02/08/18 Height 5 ft 9 in Intake Visit Reasons: EST CARE Chief Complaint: establish care Is patient in pain?: Yes (arthritic pain) Pain scale (1-10): 8 Allergies No Known Allergies Allergy (Verified 01/22/18 14:42) Medications Aspirin [Aspirin, Baby] 81 mg PO DAILY@0800 01/07/15 [History Confirmed 01/22/18] Glimepiride [Amaryl] 4 mg PO BID 01/07/15 [History Confirmed 02/08/18] Metformin HCl [Glucophage] 1,000 mg PO BIDCM 01/07/15 [History Confirmed 02/08/18] Metoprolol(XL)Succ [Toprol Xl (Beta Robinson)] 100 mg PO BID 01/07/15 [History Confirmed 02/08/18] Potassium Chloride [Klor-Con M20] 40 meq PO TID 06/30/17 [History Confirmed 02/08/18] amlodipine 10 mg tablet 10 mg PO DAILY #30 tab 07/18/17 [Rx Confirmed 02/08/18] clopidogrel 75 mg tablet 75 mg PO DAILY #90 tab 07/18/17 [Rx Confirmed 02/08/18] nitroglycerin 0.4 mg sublingual tablet 0.4 mg SUBLINGUAL Q5M PRN #25 tab 07/18/17 [Rx Confirmed 02/08/18] albuterol sulfate HFA 90 mcg/actuation aerosol inhaler 2 puff INHALATION Q4H PRN PRN #18 g 09/26/17 [Rx Confirmed 01/22/18] atorvastatin 80 mg tablet 40 mg PO QHS tab 01/22/18 [History Confirmed 01/22/18] furosemide 40 mg tablet 40 mg PO BID 01/22/18 [History Confirmed 02/08/18] insulin detemir (U- 100) 100 unit/mL subcutaneous solution 30 unit SC TID ml 02/08/18 [History Confirmed 02/08/18] metolazone 2.5 mg tablet 2.5 mg PO ONCE tab 02/08/18 [History Confirmed 02/08/18] naproxen sodium 220 mg capsule 220 mg PO BID PRN 02/08/18 [History Confirmed 02/08/18] paroxetine 40 mg tablet 40 mg PO DAILY 02/08/18 [History Confirmed 02/08/18] ranolazine ER 500 mg tablet,extended release,12 hr 500 mg PO QDAY tab 02/08/18 [History Confirmed 02/08/18] [facility] Medical History Pure hypercholesterolemia (Chronic) Essential (primary) hypertension (Chronic) Atherosclerosis of coronary artery of [place] heart without angina pectoris (Chronic) Chronic hypoxemic respiratory failure (Chronic) FAVIAN (obstructive sleep apnea) (Chronic) Dyspnea on exertion (Chronic) Acquired left ventricular hypertrophy (Chronic) Abnormal chest xray (Chronic) Chest discomfort (Chronic) Near syncope (Chronic) Overweight (Chronic) Hypoxia (Chronic) Hypertriglyceridemia (Chronic) Morbid obesity with BMI of 40.0-44.9, adult (Chronic) Epistaxis (Resolved) Type 2 diabetes mellitus (Chronic) History of DVT (deep vein thrombosis) (Chronic) Osteoarthritis (Chronic) History of pulmonary embolism (Resolved) Surgical History History of coronary artery stent placement (Chronic 05/11/16) History of eye surgery (Acute) History of appendectomy (Resolved) 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/17) History of hip replacement (Resolved) History of intestinal surgery (Resolved) History of knee surgery (Resolved) History of tonsillectomy and adenoidectomy (Resolved) Family History Mother Colon cancer Sister CAD (coronary artery disease) CABG x 5 Diabetes Myocardial infarction, Onset Age: 67 Father Crohns disease Social History Smoking Status: Never smoker how long ago did patient quit smokin years ago second hand exposure: No alcohol intake: former year quit: 2003 substance use type: does not use caffeine: Yes Type: coffee Number of servings: 2, carbonated beverages Number of servings: 2 what type of physical activity do you participate in: none HPI HPI Chief Complaint: establish care Details: SHADE TEIXEIRA, is a 62yo M who presents to the office today to establish care. He has a depressive past medical history including type 2 diabetes mellitus which is poorly controlled, hypertension, hyperlipidemia, COPD, sleep apnea and coronary artery disease. He denies any acute complaints at this time. He is most concerned about his diabetes management. It appears that he has been on several medications for management of his diabetes and for the most part self adjusts his medications. He also has not paid attention to dietary management of his diabetes. Currently taking Levemir 3 times daily. He is unsure of his last A1c. ROS Const Constitutional: No weight change, body ache, chills, fatigue, fever(s), change in appetite, snoring, weakness, frequent falls, headache(s) or excessive sweating Eyes Eyes: No change in vision, eye pain, light sensitivity or blurry vision ENT ENT: No headache(s), abnormal hearing, ear pain, tinnitus, nasal congestion, sore throat or neck pain Resp Respiratory: No snoring, cough, shortness of breath or wheezing Cardio Cardiology: No excessive sweating, chest pain at rest, chest pain with exertion, shortness of breath, dyspnea on exertion, palpitations, orthopnea or lightheadedness Gastro GI: No abdominal pain, change in bowel habits, constipation, vomiting, nausea/dyspepsia or cramping Genitourinary Male: No painful urination, urinary incontinence, urinary frequency, urinary urgency, blood in urine, testicle pain or other Musc Musculoskeletal: Positive for back pain; no neck pain, abnormal walking, joint pain, limited range of motion, numbness or tingling Skin Skin: No redness, dry skin, itching, lesions, wounds or rash Neuro Neurology: No weakness, frequent falls, headache(s), abnormal hearing, abnormal walking, numbness, tingling, abnormal speech, dizziness or memory loss Psych Psychiatric: No change in appetite, No memory loss, No Thoughts of harming yourself/Others Endo Endocrine: No fatigue, excessive sweating, cold intolerance, increased thirst/drinking, heat intolerance, flushing or increased hunger Aller/Imm Allergy/Immunologic: No wheezing, itchy eyes, hives or seasonal allergy symptoms Brett/Lymp Hematologic/Lymphatic: No easy bleeding, easy bruising or enlarged lymph nodes Exam Const General: cooperative, no acute distress Nutritional Appearance: obese Orientation: alert, awake, oriented x3 [facility] Head: atraumatic, normocephalic, normal to inspection Ears: hearing grossly normal bilaterally Resp Effort AND Inspection: normal respiratory effort, able to speak in complete sentences Auscultation: Bilateral: Clear to Auscultation Cardio Rate: regular rate Rhythm: regular rhythm Heart Sounds: S1 normal, S2 normal GI Inspection: obesity Palpation: soft, no hepatosplenomegaly Neuro General: alert, awake, oriented x3, moves all extremities, CN's II-XI intact bilaterally Extrem General: pedal edema bilaterally Location: of the leg Severity: 2+ Psych Mental Status: mental status grossly normal Mood: congruent mood Affect: normal affect Assessment AND Plan 1. Type 2 diabetes mellitus with complication, with long-term current use of insulin E11.9 Plan From review of his log, he has very poor control. Has also been self adjusting his medications. Dietary and lifestyle modifications discussed. I believe he will benefit from diabetes education, referred. Advised to take his Levemir twice daily. 50 units twice daily. May increase to 52 units if fasting blood sugar remains over 200. Scheduled to follow- up with VALARIE Christina'elian next week and I believe he can have further insulin adjustments at that visit. Otherwise, follow-up in 1 month. He was advised to call with questions or concerns. Orders Orders: Referrals: 2. Morbid obesity with BMI of 40.0-44.9, adult E66.01; Z68.41 Plan As above lifestyle/dietary modifications discussed. Strongly encouraged exercise. We did discuss how his weight significantly impact his diabetes management. May benefit at some point from the why weight program. Readdress at next visit. 3. Insomnia G47.00 Plan This is likely due to poor sleep hygiene. Sleep hygiene discussed. Melatonin also recommended. Follow-up at next visit. Plan Detail Other Orders Orders: Other Medications New: Coding Level of Care Code Off vis,new,level 4 Diagnoses Type 2 diabetes mellitus with complication, with long-term current use of insulin E11.9 Morbid obesity with BMI of 40.0-44.9, adult E66.01; Z68.41 Insomnia G47.00 02/12/18 1305 <Electronically signed by Mery Raymond MD> Date Mery Raymond MD Cosigner Signature: Date (if applicable) CC: LIPID PROFILE Collected: 02/08/2018 Status: F Source: RYAN 3:51 PM REPOSITORY Order Comment: Comments: Fasting Comments: Fasting TYPE CODE TESTS RESULT OUT OF RANGE REFERENCE UNITS LAB L501.4900 200 mg/dL Normal CHOL 167 Result Comment: <200 mg/dL Desirable 200-240 mg/dL Borderline >240 mg/dL High Risk LAB L501.5000 mg/dL High TRIG 625 Result Comment: The drugs N-Acetylcysteine and Metamizole may falsely depress this assay. TRIGLYCERIDE IS GREATER THAN 400 mg/dL. LDL RESULT IS INVALID AND WILL NOT BE REPORTED. Serum Triglycerides Reference Interval Normal <150 mg/dL Borderline high 150 - 199 mg/dL High 200 - 499 mg/dL Very High > or = 500 mg/dL LAB L501.6400 mg/dL Low HDL 22 Result Comment: The drugs N-Acetylcysteine and Metamizole may falsely depress this assay. Reference Range HDL <40 mg/dL Low HDL Cholesterol HDL >or= 60 mg/dL High HDL Cholesterol LAB L501.6500 0-130 mg/dL Test Normal not performed LDL LAB L501.6600 5-40 mg/dL Test Normal not performed VLDL Performed By: #### L500.4100 #### [facility] [address]. [place], [place], [id number] HEMOGLOBIN A1C Collected: 02/08/2018 Status: F Source: RYAN 3:51 PM REPOSITORY TYPE CODE TESTS RESULT OUT OF RANGE REFERENCE UNITS LAB L501.9985 4.2-6.3 % High HGB A1C 10.1 Performed By: #### L501.9985 #### [facility] [address] [place], [place], [id number] MICROALB:CREAT Collected: 02/08/2018 Status: F Source: RYAN RATIO,RANDOM UR 3:51 PM REPOSITORY TYPE CODE TESTS RESULT OUT OF RANGE REFERENCE UNITS LAB L501.1200 NO RANGE EST. mg/dL Normal UR CREAT 65.60 LAB L502.0500 NO RANGE EST. mg/L Normal 111.0 MICROALBUMIN ,UR LAB L502.0600 <30 mg/g CRE mg/g CRE High 169.2 MALB:CREAT Performed By: #### L502.0250 #### [facility] [address] [place], [place], [id number] CARDIOLOGY VISIT Observed: 01/23/2018 Status: F Source: [place] REPORT 7:49 AM REPOSITORY [facility] [address] [place] [address] OFFICE VISIT Date of Service: 01/22/18 MR#: [id number] Acct: [id number] Name: SHADE TEIXEIRA Rep #: [id number] : 1955 Provider: VICKY Mendez Age/Sex: 62/M Location: [facility] Status: Signed HPI HPI Details: SHADE TEIXEIRA, is a 62 M who presents to the office today for a cardiovascular outpatient follow-up. He has a history of coronary artery disease with drug-eluting stent to LAD in May 2016, pulmonary embolus in 2008, hypertension, hyperlipidemia, obesity, diabetes, and obstructive sleep apnea with BiPaP. He saw pulmonology last week with worsening SOB. His Lasix was adjusted. His symptoms improved. His chest pain/palpitation is unchanged. This has not increased in frequency. Pt denies arm, jaw, or neck discomfort. His exercise tolerance is stable. Pt denies symptoms of CHF, palpitations, lightheadedness, dizziness, near syncopal or syncopal episodes. Pt denies edema or claudication issues. Pt. denies orthopnea, PND, fever, chills, blood in urine, blood in stool, or myalgia. He states a decrease in energy over the last week. Intake Vital Signs01/22/18 Height 5 ft 10 in 01/22/18 Weight: 290 lb 01/22/18 Body Mass Index (BMI) 41.5 01/22/18 Blood Pressure 130/68 H 01/22/18 Blood Pressure Location Lt brachial Intake Visit Reasons: F/U PER PMW Commercial Coordinator Required: No Accompanied by: None Is patient in pain?: No Allergies No Known Allergies Allergy (Verified 01/22/18 14:42) Medications Aspirin [Aspirin, Baby] 81 mg PO DAILY@0800 01/07/15 [History Confirmed 01/22/18] Glimepiride [Amaryl] 4 mg PO BID 01/07/15 [History Confirmed 01/22/18] Metformin HCl [Glucophage] 1,000 mg PO BIDCM 01/07/15 [History Confirmed 01/22/18] Metoprolol(XL)Succ [Toprol Xl (Beta Robinson)] 100 mg PO BID 01/07/15 [History Confirmed 01/22/18] Potassium Chloride [Klor-Con M20] 40 meq PO TID 06/30/17 [History Confirmed 01/22/18] amlodipine 10 mg tablet 10 mg PO DAILY #30 tab 07/18/17 [Rx Confirmed 01/22/18] clopidogrel 75 mg tablet 75 mg PO DAILY #90 tab 07/18/17 [Rx Confirmed 01/22/18] nitroglycerin 0.4 mg sublingual tablet 0.4 mg SUBLINGUAL Q5M PRN #25 tab 07/18/17 [Rx Confirmed 01/22/18] albuterol sulfate HFA 90 mcg/actuation aerosol inhaler 2 puff INHALATION Q4H PRN PRN #18 g 09/26/17 [Rx Confirmed 01/22/18] metolazone 2.5 mg tablet 2.5 mg PO .2xwk tab 10/09/17 [History Confirmed 01/22/18] atorvastatin 80 mg tablet 40 mg PO QHS tab 01/22/18 [History Confirmed 01/22/18] furosemide 40 mg tablet 40 mg PO BID 01/22/18 [History Confirmed 01/22/18] insulin detemir (U- 100) 100 unit/mL subcutaneous solution 30 unit SC TID ml 01/22/18 [History Confirmed 01/22/18] Ejection fraction %: 65 to 70 PFSH Medical History Pure hypercholesterolemia (Chronic) Essential (primary) hypertension (Chronic) Atherosclerosis of coronary artery of [place] heart without angina pectoris (Chronic) Chronic hypoxemic respiratory failure (Chronic) FAVIAN (obstructive sleep apnea) (Chronic) Dyspnea on exertion (Chronic) Acquired left ventricular hypertrophy (Chronic) Abnormal chest xray (Chronic) Chest discomfort (Chronic) Near syncope (Chronic) Overweight (Chronic) Hypoxia (Chronic) Hypertriglyceridemia (Chronic) Morbid obesity with BMI of 40.0-44.9, adult (Chronic) Epistaxis (Resolved) Type 2 diabetes mellitus (Chronic) History of DVT (deep vein thrombosis) (Chronic) Osteoarthritis (Chronic) History of pulmonary embolism (Resolved) Surgical History History of coronary artery stent placement (Chronic 05/11/16) History of appendectomy (Resolved) 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/17) History of hip replacement (Resolved) History of intestinal surgery (Resolved) History of knee surgery (Resolved) History of tonsillectomy and adenoidectomy (Resolved) Family History Mother Colon cancer Sister CAD (coronary artery disease) CABG x 5 Diabetes Social History Smoking Status: Former smoker how long ago did patient quit smokin years ago second hand exposure: No alcohol intake: never substance use type: does not use caffeine: Yes Type: coffee Number of servings: 2, carbonated beverages Number of servings: 2 what type of physical activity do you participate in: none ROS Const Const: Positive for fatigue; negative for weakness, body ache, fever(s) or chills ENT ENT: Negative for dizziness Cardio Chest Pain: No Palpitations: No Edema: None Muscle aches with walking: None Resp Respiratory: Negative for SOB with activity, SOB at rest, SOB orthopnea\SOB lying down or paroxysmal nocturnal dyspnea GI GI: Negative nausea, black,tarry stools, bright, red blood in stools or vomiting blood/hematemesis : Negative for hematuria or frequent nighttime urination/ nocturia Musc Musc: Negative for muscle aches/ myalgia Skin Skin: Negative non-healing lesions or rash Neuro Neuro: Negative for lightheadedness, near syncope, syncope, orthostatic symptoms, weakness or dizziness Endo Endo: Positive for fatigue Allergy Allergy/Immunology: Negative for rash Cardiology Exam Const Appearance: cooperative, healthy appearing and no acute distress Nutritional Appearance: well nourished and obese Orientation: alert, oriented x3 and oriented to person Head Head: normal to inspection, atraumatic and normocephalic Nose: external nose normal Face and Sinus: face symmetric Mouth: oral mucosae normal Eyes General: appearance normal, both eyes and all related structures Eyelids: eyelids normal Conjunctivae: conjunctivae normal Pupils: PERRL and normal by confrontation EOM: EOM intact bilaterally Neck Neck: normal visual inspection and full ROM Carotids: normal carotid upstroke Chest Chest inspection: normal inspection of the chest Auscultation: Bilateral: Clear to Auscultation Cardio Palpation: normal PMI Rate: regular rate Rhythm: regular rhythm Heart sounds: S1 normal and S2 normal GI GI: normal to inspection, no hepatosplenomegaly, bowel sounds present and obese Neuro General: alert, oriented x3, awake, CN's II-XI intact bilaterally and moves all extremities Skin Skin: no rashes or lesions noted Extremities Pulses: Normal: Right Femoral Pulse, Left Femoral Pulse, Right Dorsalis Pedis Pulse, Left Dorsalis Pedis Pulse, Right Posterior Tibial Pulse, Left Posterior Tibial Pulse, Right Radial Pulse, Left Radial Pulse Lower Extremity Edema: None: Bilateral Psych Psychological: normal affect Assessment AND Plan 1. Atherosclerosis of [place] coronary artery of [place] heart without angina pectoris I25.10 PCI-Mid LAD 3.0 x 16 mm Promus Synergy DANIEL Plan His substernal chest pressure is unchanged and has not worsened. It has not increased in frequency. His stress test in January 2017 was negative by both ECG and echocardiographic criteria. He will continue lifestyle and risk factor modification. He will continue current medications and we will continue to monitor. 2. History of coronary artery stent placement Z95.5 PCI-Mid LAD 3.0 x 16 mm Promus Synergy DANIEL Plan He will continue current treatment plan as outlined above. 3. Dyspnea on exertion R06.09 Plan His shortness of breath on exertion is much improved after his diuretics were increased to 80 mg twice daily for 3 days. His lower extremity edema has also improved. At this time he will continue current diuretic regimen and we will continue to monitor. It is possible that this event was related to uncontrolled blood sugars. He has a upcoming appointment with primary care physician and endocrinology for further management. Hopefully as he better manages his diabetes he avoids episodes of fluid volume overload. He was reminded of symptoms to monitor concerning for congestive heart failure. His LV function with stress echocardiogram in January 2017 was normal at 65%. 4. Essential (primary) hypertension I10 Plan Patient's blood pressure is well-controlled today in the office. We will continue to monitor this. We will not make any medication regimen changes. 5. Pure hypercholesterolemia E78.00 Plan He will continue with current statin medication. Plan Detail Additional Comments Thank you for allowing us to participate in the patients plan of care, if you have any questions please do not hesitate to call. This note was generated using a voice recognition system and there may be incorrect words, spelling or punctuation that were not noted when reviewing the office note prior to saving. Coding Level of Care Code Off vis,est,level 3 Diagnoses Atherosclerosis of [place] coronary artery of [place] heart without angina pectoris I25.10 Coronary Disease-Associated Artery/Lesion type: [place] artery History of coronary artery stent placement Z95.5 Dyspnea on exertion R06.09 Essential (primary) hypertension I10 Pure hypercholesterolemia E78.00 Coding Level of Care Code Off vis,est,level 3 Diagnoses Atherosclerosis of [place] coronary artery of [place] heart without angina pectoris I25.10 Coronary Disease-Associated Artery/Lesion type: [place] artery History of coronary artery stent placement Z95.5 Dyspnea on exertion R06.09 Essential (primary) hypertension I10 Pure hypercholesterolemia E78.00 01/23/18 0749 <Electronically signed by Oswald TEMPLE> Date Oswald TEMPLE Cosigner Signature: Date (if applicable) CC: Harinder Gracia MD; Nicho Beth MD PULMONARY VISIT REPORT Observed: 01/19/2018 Status: F Source: [place] 3:26 PM REPOSITORY [facility] [address] [place] [address] OFFICE VISIT Date of Service: 01/18/18 MR#: [id number] Acct: [id number] Name: SHADE TEIXEIRA Rep #: [id number] : 1955 Provider: Ariana Juarez Age/Sex: 62/M Location: [facility] Status: Signed Assessment AND Plan 1. Dyspnea on exertion R06.09 Plan Deteriorated. Concern for exacerbation of heart failure. Ordering BMP to evaluate, also ordering a BMP to evaluate whether or not the patient will tolerate an increase in his Lasix. BNP found to be elevated, kidney function reviewed and appropriate for tolerating an increase temporarily in diuretic therapy. The patient was called and asked to take 80 mg of Lasix twice daily for the next 3 days. He was also asked to contact his management coordinator for follow-up. Orders Orders: 2. Chronic respiratory failure with hypoxia J96.11 Plan Likely deteriorated secondary to water retention. Continue to use supplemental oxygen as needed to maintain saturations 89-92%. Keep previously scheduled routine follow-up. Call the office with any new or worsening symptoms. Plan Detail Other Medications New: HPI trouble breathing: Chief Complaint: Shortness of breath HPI Comments Details: This patient presents the office today for an acute visit regarding worsening shortness of breath. The patient states the his symptoms began 5 days ago. He also admits that he has gained 10 pounds in the past 9 days. He has noticed an increase in swelling to his bilateral lower extremities. He is reporting shortness of breath that is worsened when lying on his right side. He admits that lately he has been eating a lot of freezer meals, drinking a lot of water, V8 and occasional soda. He is currently on Lasix 40 mg twice daily. He is now using his Ventolin rescue inhaler 4 or more times daily, reports that it is very short acting and not very effective in relieving his shortness of breath. He does have a dry cough, denies any sputum production or hemoptysis. He does have occasional chest tightness and chest pain. He has not recently used his nitroglycerin, but reports that it is normal for me to take them. He denies any fever, chills or body aches. See complete review of systems. Intake Vital Signs01/18/18 Height 5 ft 10 in 01/18/18 Weight: 302 lb Intake Visit Reasons: trouble breathing Accompanied by: Self Allergies No Known Allergies Allergy (Verified 01/18/18 14:30) Medications Aspirin [Aspirin, Baby] 81 mg PO DAILY@0800 01/07/15 [History Confirmed 01/18/18] Atorvastatin Calcium [Lipitor] 80 mg PO QHS 01/07/15 [History Confirmed 01/18/18] Furosemide [Lasix] 40 mg PO BID 01/07/15 [History Confirmed 01/18/18] Glimepiride [Amaryl] 4 mg PO BID 01/07/15 [History Confirmed 01/18/18] Metformin HCl [Glucophage] 1,000 mg PO BIDCM 01/07/15 [History Confirmed 01/18/18] Metoprolol(XL)Succ [Toprol Xl (Beta Robinson)] 100 mg PO BID 01/07/15 [History Confirmed 01/18/18] Multivitamins,Therapeutic [Multivitamin] 1 tab PO DAILY 05/10/16 [History Confirmed 01/18/18] Lorazepam [Ativan] 0.5 mg PO BID 01/18/17 [History Confirmed 01/18/18] Insulin Regular, Human [Humulin R U-500 Kwikpen] 40 unit SQ BID 06/10/17 [History Confirmed 01/18/18] Potassium Chloride [Klor-Con M20] 40 meq PO TID 06/30/17 [History Confirmed 01/18/18] amlodipine 10 mg tablet 10 mg PO DAILY #30 tab 07/18/17 [Rx Confirmed 01/18/18] clopidogrel 75 mg tablet 75 mg PO DAILY #90 tab 07/18/17 [Rx Confirmed 01/18/18] nitroglycerin 0.4 mg sublingual tablet 0.4 mg SUBLINGUAL Q5M PRN #25 tab 07/18/17 [Rx Confirmed 01/18/18] Cephalexin [Keflex] 500 mg PO Q12H #10 cap 09/03/17 [Rx Confirmed 01/18/18] albuterol sulfate HFA 90 mcg/actuation aerosol inhaler 2 puff INHALATION Q4H PRN PRN #18 g 09/26/17 [Rx Confirmed 01/18/18] metolazone 2.5 mg tablet 2.5 mg PO .2xwk tab 10/09/17 [History Confirmed 01/18/18] insulin detemir (U- 100) 100 unit/mL subcutaneous solution 200 unit SC BID ml 01/18/18 [History Confirmed 01/18/18] [facility] Medical History Atherosclerosis of coronary artery of [place] heart without angina pectoris (Chronic) FAVIAN (obstructive sleep apnea) (Chronic) Dyspnea on exertion (Chronic) Acquired left ventricular hypertrophy (Chronic) Abnormal chest xray (Chronic) Chest discomfort (Chronic) Near syncope (Chronic) Overweight (Chronic) Hypoxia (Chronic) Hypertriglyceridemia (Chronic) Morbid obesity with BMI of 40.0-44.9, adult (Chronic) Epistaxis (Acute) Type 2 diabetes mellitus (Chronic) Hypertension (Chronic) Hyperlipidemia (Chronic) History of DVT (deep vein thrombosis) (Chronic) Osteoarthritis (Chronic) History of pulmonary embolism (Resolved) Surgical History History of coronary artery stent placement (Chronic 05/11/16) Family History Mother Colon cancer Social History Smoking Status: Former smoker second hand exposure: No alcohol intake: never substance use type: does not use caffeine: Yes (1/day) what type of physical activity do you participate in: none Review of Systems Const CONSTITUTIONAL: Negative anorexia, body ache, chills, daytime sleepiness, fever(s), night sweats, oral thrush, stops breathing during sleep, weight loss, sleeping in chair, fatigue, weight loss, weight gain, frequent colds, seasonal allergies, other, headache(s) or orthopnea EETM Ear Nose Throat Mouth: Positive hearing normal; negative hard of hearing, hoarseness, dry mouth in morning, change in vision, itchy eyes, eye pain, swallowing Difficulty, ear pain, nose bleed, headache(s), mouth pain, nasal congestion, nasal discharge, post nasal drip, sinus pain, sinus pressure, sore throat or other Cardio Cardiovascular: Positive edema Location: lower extremity Right/Left: Left, Right; negative chest pain, chest pain at rest, chest pain with activity, irregular heart rhythm, shortness of breath when lying down, palpitations, murmur or other Resp Respiratory: Positive as per HPI, shortness of breath shortness of breath: Positive with activity, worsening and lying down (rt side ), wheezing, cough cough: Positive non-productive and increase use of rescue inhalers; negative pain with cough, chest congestion, chest tightness, pain on inspiration, inhalers, snoring, apnea or other Gastro Gastrointestional: Negative bloody stools, change in appetite, difficulty swallowing, reflux, hematemesis, melena stool, loose stool, constipation or other Genitourinary: Negative blood in urine, nocturia, pain with urination or other Musc Musculoskeletal: Negative body pain, back pain, neck pain or other Skin/Breast Skin/Breast: Negative dry skin, itching, rash, unusual bruising, breast lump or other Neuro Neurological: Negative restless legs, confusion, weakness or other Psych Psychocological: Negative abnormal sleep pattern, anxiety, thoughts of hurting self/others, hopelessness or other Lymph Lymphatic: Negative easy bleeding, easy bruising, swollen lymph nodes or other Exam Const Constitutional: Positive conversant, cooperative, in no acute respiratory distress, well developed, well nourished, frail appearing, dyspenic, poor hygiene and obese Head Head: Positive normocephalic and atraumatic; negative cyanosis of lips/distal nose Eyes Eye: Positive clear conjunctiva; negative nystagmus or scleral abnormality Ears Ear: Positive hearing normal and external ears normal; negative hard of hearing Nose Nose: Positive external nose normal and no nasal discharge; negative epistaxis Mouth Mouth: Positive oral mucosae normal, no lesions and crowded posterior oropharynx; negative post nasal drip, oral thrush present or malodorous breath Mallampati Score: IV: Mallampati Score Neck Neck: Positive normal visual inspection, full ROM, trachea midline, thick neck and male neck greater than 43 cm (17 in); negative lymphadenopathy, JVD or tender Chest Wall Chest: Positive normal inspection of the chest and symmetric chest movement; negative increased A/P diameter Resp lung sounds: Positive diminished, dullness to percussion dullness: Yes bilateral, Yes lower, normal expiratory time and increased work of breathing; negative wheezes, rhonchi, rales, wheeze present on forced exhalation or use of accessory muscles Cardio Cardiac: Positive regular rate, regular rhythm, S1 normal and S2 normal; negative murmur GI GI: Positive normal to inspection and obese; negative distended Genitourinary: Positive deferred Musc Musculoskeletal: Positive steady gait and ROM normal; negative kyphosis or scoliosis Skin Pulmonary Skin Exam: Positive intact; negative rash or lesion Pulses Pulse: Yes pulses normal x4 extremities Extremities Extremities: Yes capillary refill normal, No clubbing, No cyanosis, Yes edema Location: lower extremity location: Bilateral pitting +3 Neuro Neurologic: Yes conversant, Yes no focal neuro deficits, Yes normal concentration, Yes understands questions, Yes cooperative, Yes normal cognition, Yes normal coordination Lymph Lymphatic: No lymphadenopathy, No tenderness, No cervical adenopathy Psych Appearance: Positive grossly normal, eye contact and well kempt Mental Status: Positive mental status grossly normal Mood: Positive anxious mood Affect: Positive anxious affect Coding Level of Care Code Off vis,est,level 4 Diagnoses Dyspnea on exertion R06.09 Chronic respiratory failure with hypoxia J96.11 01/19/18 1526 <Electronically signed by Ariana TEMPLE> Date Ariana Juarez WIRE CHIEF-C Cosigner Signature: Date (if applicable) CC: Nicho Beth MD BASIC METABOLIC Collected: 01/18/2018 Status: F Source: RYAN PROFILE (BMP) 3:33 PM REPOSITORY TYPE CODE TESTS RESULT OUT OF RANGE REFERENCE UNITS LAB L501.0100 74-106 mg/dL High GLU 211 Result Comment: Glucose result greater than or equal to 200 mg/dL suggests DIABETES MELLITUS per A.D.A. criteria. Please note revised GLUCOSE reference range effective 2017. LAB L501.1000 7-18 mg/dL Normal BUN 18 LAB L501.1100 0.70-1.30 mg/dL Normal CREAT,SERUM 0.77 Result Comment: The validity of the calculated GFR AND GFRAA in patients over 70 years has not been determined. Clinical correlation is essential. LAB L501.1110 >60 mL/min Normal EST GFR 109 Result Comment: Non- GFR Calc LAB L501.1115 >60 mL/min Normal EST GFR - AA 132 Result Comment: GFR Calc LAB L501.1300 10-20 RATIO High BUN/CRE 23.3 LAB L501.2200 8.5-10.1 mg/dL CA Normal 9.9 LAB L501.5300 136-145 mmol/L NA Normal 139 LAB L501.5600 3.5-5.1 mmol/L K Normal 3.9 LAB L501.5900 98-107 mmol/L CL Normal 102 LAB L501.6100 21.0-32.0 mmol/L Normal CO2 28.0 LAB L501.6200 5-15 Normal GAP 9 Performed By: #### L500.2500, L503.6620 #### [facility] [address] [place], [address] BNP,B-TYPE NATRIURETIC Collected: 01/18/2018 Status: F Source: RYAN PEPTIDE 3:33 PM REPOSITORY TYPE CODE TESTS RESULT OUT OF RANGE REFERENCE UNITS LAB L503.6620 0-100 pg/mL High B-TYPE 186.2 RIGO PEP Performed By: #### L500.2500, L503.6620 #### [facility] [address] [place], [address] PULMONARY VISIT REPORT Observed: 01/09/2018 Status: F Source: [place] 12:49 PM REPOSITORY [facility] [address] [place] [address] OFFICE VISIT Date of Service: 01/09/18 MR#: [id number] Acct: [id number] Name: SHADE TEIXEIRA Rep #: [id number] : 1955 Provider: Ariana Juarez Age/Sex: 62/M Location: [facility] [place] Status: Signed Assessment AND Plan 1. FAVIAN (obstructive sleep apnea) G47.33 Plan Patient is using and benefiting from Pap therapy. No indication for titration study at this time. Continue to encourage weight loss. Contact the office for any new or worsening symptoms in the meantime. Follow-up in 3 mos. 2. Chronic respiratory failure with hypoxia J96.11 Plan Resolved. Continue to monitor. Follow up with BWA in 3 mos. May need repeat walk test if symptoms worsen prior to follow up. 3. Type 2 diabetes mellitus with complication, with long-term current use of insulin E11.9 Plan Complicates plan, exam, care and prognosis. Referral to Endocrinology for management. Know to provider. Orders Orders: Referrals: Medications Discontinued: Fluad 65yr up(PF)45 mcg(15 mcgx3)/0.5 mL intramuscul0.5 mL IM ONCE 0.5 mL 0RF NS ar syringe (flu vac 2017 [id number](PF)) Discontinued Reason: Office Medication has been Documented as given 4. Morbid obesity with BMI of 40.0-44.9, adult E66.01; Z68.41 Plan Continue to encourage weight loss. Plan Detail Other Orders Orders: Other Medications Discontinued: Fluad 65yr up(PF)45 mcg(15 mcgx3)/0.5 mL intramus0.5 mL IM ONCE 0.5 mL 0RF NS Z23 cular syringe (flu vac 2017 [id number](PF)) Discont inued Reason: Office Medication has been Documented as g kike Follow Up 3 Months (BWA) HPI 3 M FU: Chief Complaint: follow-up PAP therapy HPI Comments Details: 62-year-old male presents today for follow up with PAP therapy use. He presents in the office with no apparent distress. Able to talk in full sentences without breathlessness. No supplemental oxygen. Does admit to small amount of dyspnea with exertion. Will sit and rest and then continue on with activity after he feels better. Denies cough, nasal drainage, fever, or prednisone usage. Patient presents with not feeling well. Unable to get my insulin from Dr. Beth, I had to use nitroglycerin tabs before I got here just so I could make the appointment. I had chest pain and pressure yesterday and today after I woke up in the morning and got moving around the house. Patient continues to state: I have oxygen at home, but I really don't need it any more, I got myself weaned off of it. Patient does state that he has some benefit from using PAP therapy. He only gets 4-5 hours of sleep/night, he does feels somewhat rested when waking up from sleeping. He does nap frequently, usually at least twice/day. He does use PAP for napping as well. Experiences some small leaks that after making mask adjustments, the leaks are resolved. He is more concerned about his need for insulin prescription than for his pulmonary or cardiac issues. Intake Vital Signs01/09/18 Height 5 ft 10 in 01/09/18 Weight: 291 lb Intake Visit Reasons: 3 M FU Commercial Coordinator Required: No Accompanied by: Self Allergies No Known Allergies Allergy (Verified 01/09/18 06:47) Medications Aspirin [Aspirin, Baby] 81 mg PO DAILY@0800 01/07/15 [History Confirmed 01/09/18] Atorvastatin Calcium [Lipitor] 80 mg PO QHS 01/07/15 [History Confirmed 01/09/18] Furosemide [Lasix] 40 mg PO BID 01/07/15 [History Confirmed 01/09/18] Glimepiride [Amaryl] 4 mg PO BID 01/07/15 [History Confirmed 01/09/18] Metformin HCl [Glucophage] 1,000 mg PO BIDCM 01/07/15 [History Confirmed 01/09/18] Metoprolol(XL)Succ [Toprol Xl (Beta Robinson)] 100 mg PO BID 01/07/15 [History Confirmed 01/09/18] Multivitamins,Therapeutic [Multivitamin] 1 tab PO DAILY 05/10/16 [History Confirmed 01/09/18] Lorazepam [Ativan] 0.5 mg PO BID 01/18/17 [History Confirmed 01/09/18] Insulin Regular, Human [Humulin R U-500 Kwikpen] 40 unit SQ BID 06/10/17 [History Confirmed 01/09/18] Potassium Chloride [Klor-Con M20] 40 meq PO TID 06/30/17 [History Confirmed 01/09/18] amlodipine 10 mg tablet 10 mg PO DAILY #30 tab 07/18/17 [Rx Confirmed 01/09/18] clopidogrel 75 mg tablet 75 mg PO DAILY #90 tab 07/18/17 [Rx Confirmed 01/09/18] nitroglycerin 0.4 mg sublingual tablet 0.4 mg SUBLINGUAL Q5M PRN #25 tab 07/18/17 [Rx Confirmed 01/09/18] Cephalexin [Keflex] 500 mg PO Q12H #10 cap 09/03/17 [Rx Confirmed 01/09/18] albuterol sulfate HFA 90 mcg/actuation aerosol inhaler 2 puff INHALATION Q4H PRN PRN #18 g 09/26/17 [Rx Confirmed 01/09/18] metolazone 2.5 mg tablet 2.5 mg PO .2xwk tab 10/09/17 [History Confirmed 01/09/18] PFSH Medical History Atherosclerosis of coronary artery of [place] heart without angina pectoris (Chronic) FAVIAN (obstructive sleep apnea) (Chronic) Dyspnea on exertion (Chronic) Acquired left ventricular hypertrophy (Chronic) Abnormal chest xray (Chronic) Chest discomfort (Chronic) Near syncope (Chronic) Overweight (Chronic) Hypoxia (Chronic) Hypertriglyceridemia (Chronic) Morbid obesity with BMI of 40.0-44.9, adult (Chronic) Epistaxis (Acute) Type 2 diabetes mellitus (Chronic) Hypertension (Chronic) Hyperlipidemia (Chronic) History of DVT (deep vein thrombosis) (Chronic) Osteoarthritis (Chronic) History of pulmonary embolism (Resolved) Surgical History History of coronary artery stent placement (Chronic 05/11/16) Family History Mother Colon cancer Social History Smoking Status: Former smoker second hand exposure: No alcohol intake: never substance use type: does not use caffeine: Yes (1/day) what type of physical activity do you participate in: none Review of Systems Const CONSTITUTIONAL: Positive fatigue and weight gain; negative anorexia, body ache, chills, daytime sleepiness, fever(s), night sweats, oral thrush, stops breathing during sleep, weight loss, sleeping in chair, weight loss, frequent colds, seasonal allergies, other, headache(s) or orthopnea EETM Ear Nose Throat Mouth: Positive hearing normal, nasal congestion and nasal discharge; negative hard of hearing, hoarseness, dry mouth in morning, change in vision, itchy eyes, eye pain, swallowing Difficulty, ear pain, nose bleed, headache(s), mouth pain, post nasal drip, sinus pain, sinus pressure, sore throat or other Cardio Cardiovascular: Negative chest pain, chest pain at rest, chest pain with activity, irregular heart rhythm, edema, shortness of breath when lying down, palpitations, murmur or other Resp Respiratory: Positive as per HPI, shortness of breath shortness of breath: Positive with activity and chest tightness; negative pain with cough, wheezing, chest congestion, cough, pain on inspiration, inhalers, increase use of rescue inhalers, snoring, apnea or other Gastro Gastrointestional: Negative bloody stools, change in appetite, difficulty swallowing, reflux, hematemesis, melena stool, loose stool, constipation or other Genitourinary: Negative blood in urine, nocturia, pain with urination or other Musc Musculoskeletal: Negative body pain, back pain, neck pain or other Skin/Breast Skin/Breast: Negative dry skin, itching, rash, unusual bruising, breast lump or other Neuro Neurological: Negative restless legs, confusion, weakness or other Psych Psychocological: Positive abnormal sleep pattern, anxiety and hopelessness; negative thoughts of hurting self/others or other Lymph Lymphatic: Negative easy bleeding, easy bruising, swollen lymph nodes or other Exam Const Constitutional: Positive conversant, cooperative, in no acute respiratory distress and obese Head Head: Positive normocephalic and atraumatic; negative frontal sinus tenderness or maxillary sinus tenderness Eyes Eye: Positive clear conjunctiva Ears Ear: Positive hearing normal and external ears normal; negative hard of hearing Nose Nose: Positive external nose normal and no nasal discharge; negative epistaxis, nasal polyp, clear nasal discharge or purulent nasal discharge Mouth Mouth: Positive oral mucosae normal and no lesions; negative post nasal drip or oral thrush present Neck Neck: Positive normal visual inspection, full ROM and trachea midline; negative tender Chest Wall Chest: Positive normal inspection of the chest and symmetric chest movement; negative increased A/P diameter or tenderness Resp lung sounds: Positive clear to auscultation, good air exchange, normal expiratory time and normal respiratory effort; negative increased work of breathing or use of accessory muscles Cardio Cardiac: Positive regular rate and regular rhythm; negative murmur GI GI: Positive normal to inspection, normal bowel sounds and obese; negative distended Genitourinary: Positive deferred Musc Musculoskeletal: Positive steady gait and ROM normal; negative using an assistive device for ambulation Skin Pulmonary Skin Exam: Positive intact; negative rash, lesion or erythema Pulses Pulse: Yes pulses normal x4 extremities Extremities Extremities: Yes capillary refill normal, No clubbing Neuro Neurologic: Yes conversant, Yes no focal neuro deficits, Yes cooperative, Yes normal cognition, Yes normal concentration Lymph Lymphatic: No lymphadenopathy, No tenderness, No cervical adenopathy Psych Appearance: Positive grossly normal, eye contact and well kempt Mood: Positive congruent mood and anxious mood Affect: Positive normal affect Office Meds Fluad 2017- 65yr up(PF)45 mcg(15 mcgx3)/0.5 mL intramuscular syringe Performing Provider: MAVERICK Boss Administered by: Veronica Hayes on 01/09/18 11:05 Dose Route Admin Location Lot Number Expiration Date NDC Biomedical Electronics Technician 0.5 mL IM L deltoid [id number] 10/07/18 37605-855-61 SEQIRUS Coding Level of Care Code Off vis,est,level 3 Diagnoses FAVIAN (obstructive sleep apnea) G47.33 Chronic respiratory failure with hypoxia J96.11 Type 2 diabetes mellitus with complication, with long-term current use of insulin E11.9 Morbid obesity with BMI of 40.0-44.9, adult E66.01; Z68.41 01/09/18 1249 <Electronically signed by Ariana TEMPLE> Date Ariana REEDC Cosigner Signature: Date (if applicable) CC: Nicho Beth MD ESTABLISHED VISIT Observed: 01/02/2018 Status: UNK Source: [place] (OTOLARYNGOLOGY) 11:40 AM [facility]ITALS REPOSITORY Chief Complaint 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 Chronic sinusitis s/p bilateral sinus surgery 11/06/17 3. Nasal airway obstruction s/p septoplasty and turbinate reductions 11/06/17 4. Rhinorrhea 5. Decreased sense of smell 6. COPD on supplemental oxygen History of Present Illness Reason for visit: SHADE TEIXEIRA patient presents since last being seen 11/21/17. Main Symptoms: Patient has anterior nasal drainage. recent improvement. Patient has posterior nasal drainage. Patient has nasal airway obstruction. bilaterally. Patient does not have facial pain. Patient does not have facial pressure. Patient has decreased sense of smell. Decreased 60 % of normal. Medications currently on for sinonasal symptoms: Saline [place] (BID) Shade developed some ear discomfort after rinsing about 3 weeks ago and discontinued that therapy. He has been having a number of symptoms as mentioned above most notably nasal airway obstruction. He i s having some difficulty with tolerance of his positive pressure for sleep apnea. Active Problems Benign neoplasm of ethmoidal sinus (212.0) (D14.0) Chronic ethmoidal sinusitis (473.2) (J32.2) Chronic maxillary sinusitis (473.0) (J32.0) Decreased sense of smell (781.1) (R43.8) Encounter for preadmission testing (V72.84) (Z01.818) Past Medical History History of anemia (V12.3) (Z86.2) History of arthritis (V13.4) (Z87.39) History of blood loss (V12.59) (Z87.898) History of bronchitis (V12.69) (Z87.09) History of chest pain (V13.89) (Z87.898) History of chronic obstructive lung disease (V12.69) (Z87.09) History of coronary artery disease (V12.59) (Z86.79) History of depression (V11.8) (Z86.59) History of deviated nasal septum (V12.69) (Z87.09) History of diabetes mellitus (V12.29) (Z86.39) History of gastroesophageal reflux (GERD) (V12.79) (Z87.19) History of heartburn (V12.79) (Z87.898) History of high cholesterol (V12.29) (Z86.39) History of hypertension (V12.59) (Z86.79) History of nasal congestion (V12.69) (Z87.09) History of shortness of breath (V13.89) (Z87.898) History of sleep apnea (V13.89) (Z86.69) History of snoring (V15.89) (Z87.898) History of Lung trouble (786.00) (J98.4) History of Nasal cavity mass (784.2) (R22.0) Surgical History History of Hip Replacement History of Knee Surgery History of Tonsillectomy Family History Family history of malignant neoplasm (V16.9) (Z80.9) Family history of Crohn's disease (V18.59) (Z83.79) Social History Former consumption of alcohol (V11.3) (Z87.898) Never a smoker Person living alone (V60.3) (Z60.2) Allergies No Known Drug Allergies Recorded By: Ana Ross; 04/27/2017 1:09:22 PM Current Meds [place] Nasal [place] 0.65 % Nasal Solution; 2-4 SPRAYS EACH NOSTRIL TWO-THREE TIMES A DAY AND NEEDED; Therapy: [id number] to (Last Rx:[id number]) Requested for: [id number] Ordered Rx By: Eduardo Almeida; Dispense: 0 Days ; #:1 X 45 ML Bottle; Refill: 5;For: Chronic maxillary sinusitis; ZORA = N; Verified Transmission to [facility] Albuterol Sulfate (2.5 MG/3ML) 0.083% Inhalation Nebulization Solution; Therapy: (Recorded:26Jul2017) to Recorded Dispense: 0 Days ; #: Sufficient NEBU; Refill: 0; ZORA = N; Record; Last Updated By: Sharad Edward; 07/26/2017 1:50:25 PM AmLODIPine Besylate 10 MG Oral Tablet; Therapy: (Recorded:26Jul2017) to Recorded Dispense: 0 Days ; #: Sufficient TABS; Refill: 0; ZORA = N; Record; Last Updated By: Sharad Edward; 07/26/2017 1:50:24 PM Aspirin EC 81 MG Oral Tablet Delayed Release; Therapy: (Recorded:26Jul2017) to Recorded Dispense: 0 Days ; #: Sufficient TBEC; Refill: 0; ZORA = N; Record; Last Updated By: Sharad Edward; 07/26/2017 1:50:24 PM Atorvastatin Calcium 40 MG Oral Tablet; Therapy: (Recorded:26Jul2017) to Recorded Dispense: 0 Days ; #: Sufficient TABS; Refill: 0; ZORA = N; Record; Last Updated By: Sharad Edward; 07/26/2017 1:50:24 PM BD TB Syringe 27G X 1/2 1 ML Miscellaneous; Therapy: 03Jul2017 to Recorded Rx By: KIRIT; Dispense: 22 Days ; #:60 MISC; Refill: 0; ZORA = N; Record; Last Updated By: Yoselin Green; 10/10/2017 2:24:56 PM Clopidogrel Bisulfate 75 MG Oral Tablet; Therapy: (Recorded:26Jul2017) to Recorded Dispense: 0 Days ; #: Sufficient TABS; Refill: 0; ZORA = N; Record; Last Updated By: Sharad Edward; 07/26/2017 1:50:24 PM Clotrimazole 1 % External Cream; Therapy: 03Oct2017 to Recorded Rx By: NELSY; Dispense: 15 Days ; #:45 CREA; Refill: 0; ZORA = N; Record; Last Updated By: Yoselin Green; 10/10/2017 2:24:56 PM Compound Drug; Therapy: (Recorded:[id number]) to Recorded Dispense: 0 Days ; #: Sufficient; Refill: 0; ZORA = N; Record; Last Updated By: Payal Heredia; 01/02/2018 10:36:58 AM DOK 100 MG Oral Capsule; TAKE 1 CAPSULE BY MOUTH 2 TIMES DAILY WHILE TAKING OXYCODONE; Therapy: [id number] to Recorded Rx By: JUAN PABLO; Dispense: 15 Days ; #:30 CAPS; Refill: 0; ZORA = N; Record; Last Updated By: Manda Abernathy; 11/14/2017 2:41:47 PM Fluticasone Propionate 50 MCG/ACT Nasal Suspension; Therapy: (Recorded:26Jul2017) to Recorded Dispense: 0 Days ; #: Sufficient SUSP; Refill: 0; ZORA = N; Record; Last Updated By: Sharad Edward; 07/26/2017 1:50:25 PM FreeStyle Lite Test In Vitro Strip; Therapy: 09May2017 to Recorded Rx By: KIRIT; Dispense: 50 Days ; #:100 STRP; Refill: 0; ZORA = N; Record; Last Updated By: Yoselin Green; 10/10/2017 2:24:56 PM Furosemide 40 MG Oral Tablet; Therapy: (Recorded:26Jul2017) to Recorded Dispense: 0 Days ; #: Sufficient TABS; Refill: 0; ZORA = N; Record; Last Updated By: Sharad Edward; 07/26/2017 1:50:24 PM Gemfibrozil 600 MG Oral Tablet; Therapy: (Recorded:26Jul2017) to Recorded Dispense: 0 Days ; #: Sufficient TABS; Refill: 0; ZORA = N; Record; Last Updated By: Sharad Edward; 07/26/2017 1:50:25 PM Glimepiride 4 MG Oral Tablet; Therapy: (Recorded:26Jul2017) to Recorded Dispense: 0 Days ; #: Sufficient TABS; Refill: 0; ZORA = N; Record; Last Updated By: Sharad Edward; 07/26/2017 1:50:25 PM HumuLIN R U-500 (CONCENTRATED) 500 UNIT/ML Subcutaneous Solution; Therapy: 17Jul2017 to Recorded Rx By: KIRIT; Dispense: 30 Days ; #:40 SOLN; Refill: 0; ZORA = N; Record; Last Updated By: Yoselin Green; 10/10/2017 2:24:56 PM Insulin Purified [place]ente (Pork) 100 U/ML SUSP; Therapy: (Recorded:26Jul2017) to Recorded Dispense: 0 Days ; #: Sufficient SUSP; Refill: 0; ZORA = N; Record; Last Updated By: Sharad Edward; 07/26/2017 1:50:25 PM Klor-Con M20 20 MEQ Oral Tablet Extended Release; Therapy: 29Aug2016 to Recorded Rx By: KIRIT; Dispense: 30 Days ; #:180 TBCR; Refill: 0; ZORA = N; Record; Last Updated By: Yoselni Green; 10/10/2017 2:24:56 PM LORazepam 1 MG Oral Tablet; Therapy: (Recorded:26Jul2017) to Recorded Dispense: 0 Days ; #: Sufficient TABS; Refill: 0; ZORA = N; Record; Last Updated By: Sharad Edward; 07/26/2017 1:50:25 PM MetFORMIN HCl - 1000 MG Oral Tablet; Therapy: (Recorded:27Apr2017) to Recorded Dispense: 0 Days ; #: Sufficient TABS; Refill: 0; ZORA = N; Record; Last Updated By: Ana Ross; 04/27/2017 1:09:22 PM MetOLazone 2.5 MG Oral Tablet; Therapy: (Recorded:26Jul2017) to Recorded Dispense: 0 Days ; #: Sufficient TABS; Refill: 0; ZORA = N; Record; Last Updated By: Sharad Edward; 07/26/2017 1:50:25 PM Metoprolol Succinate ER 100 MG Oral Tablet Extended Release 24 Hour; Therapy: (Recorded:26Jul2017) to Recorded Dispense: 0 Days ; #: Sufficient TB24; Refill: 0; ZORA = N; Record; Last Updated By: Sharad Edward; 07/26/2017 1:50:25 PM Metoprolol Succinate ER 200 MG Oral Tablet Extended Release 24 Hour; Therapy: 29Aug2016 to Recorded Rx By: KIRIT; Dispense: 30 Days ; #:30 TB24; Refill: 0; ZORA = N; Record; Last Updated By: Yoselin Green; 10/10/2017 2:24:56 PM Multi Vitamin/Minerals Oral Tablet; Therapy: (Recorded:26Jul2017) to Recorded Dispense: 0 Days ; #: Sufficient TABS; Refill: 0; ZORA = N; Record; Last Updated By: Sharad Edward; 07/26/2017 1:50:25 PM Naproxen Sodium CAPS; Therapy: (Recorded:26Jul2017) to Recorded Dispense: 0 Days ; #: Sufficient CAPS; Refill: 0; ZORA = N; Record; Last Updated By: Sharad Edward; 07/26/2017 1:50:25 PM Nitroglycerin 0.4 MG Sublingual Tablet Sublingual; Therapy: (Recorded:26Jul2017) to Recorded Dispense: 0 Days ; #: Sufficient SUBL; Refill: 0; ZORA = N; Record; Last Updated By: Sharad Edward; 07/26/2017 1:50:25 PM OneTouch Delica Lancets 33G Miscellaneous; Therapy: 19Sep2017 to Recorded Rx By: KIRIT; Dispense: 90 Days ; #:300 MISC; Refill: 0; ZORA = N; Record; Last Updated By: Yoselin Green; 10/10/2017 2:24:56 PM OxyCODONE HCl - 5 MG Oral Tablet; take 1 tablet by mouth every 6 hours if needed for pain; Therapy: [id number] to Recorded Rx By: JUAN PABLO; Dispense: 5 Days ; #:20 TABS; Refill: 0; ZORA = N; Record; Last Updated By: Manda Abernathy; 11/14/2017 2:41:47 PM PARoxetine HCl - 40 MG Oral Tablet; Therapy: (Recorded:[id number]) to Recorded Dispense: 0 Days ; #: Sufficient TABS; Refill: 0; ZORA = N; Record; Last Updated By: Sharad Edward; 07/26/2017 1:50:25 PM Potassium Chloride 40 MEQ/15ML (20%) Oral Solution; Therapy: (Recorded:26Jul2017) to Recorded Dispense: 0 Days ; #: Sufficient SOLN; Refill: 0; ZORA = N; Record; Last Updated By: Sharad Edward; 07/26/2017 1:50:25 PM Ranexa 500 MG Oral Tablet Extended Release 12 Hour; Therapy: (Recorded:[id number]) to Recorded Dispense: 0 Days ; #: Sufficient TB12; Refill: 0; ZORA = N; Record; Last Updated By: Sharad Edward; 07/26/2017 1:50:25 PM TiZANidine HCl - 4 MG Oral Tablet; Therapy: 02Aug2017 to Recorded Rx By: ROSLYN; Dispense: 30 Days ; #:30 TABS; Refill: 0; ZORA = N; Record; Last Updated By: Yoselin Green; 10/10/2017 2:24:56 PM TraMADol HCl - 50 MG Oral Tablet; Therapy: 12Jul2017 to Recorded Rx By: ROSLYN; Dispense: 7 Days ; #:14 TABS; Refill: 0; ZORA = N; Record; Last Updated By: Yoselin Green; 10/10/2017 2:24:56 PM Ventolin HFA 108 (90 Base) MCG/ACT Inhalation Aerosol Solution; Therapy: 28Sep2017 to Recorded Rx By: ANN; Dispense: 17 Days ; #:18 AERS; Refill: 0; ZORA = N; Record; Last Updated By: Yoselin Green; 10/10/2017 2:24:56 PM Physical Exam Nose: On external exam there are neither lesions nor asymmetry of the nasal tip/dorsum. On anterior rhinoscopy, visualization posteriorly is limited on anterior examination. For this reason, to adequate ly evaluate posteriorly for masses, source of epistaxis, polypoid disease, debridement, and/or signs of infections, nasal endoscopy is indicated. (Please see procedure below.) SINONASAL ENDOSCOPY WITH DEBRIDEMENT (CPT 06692-12-96): Due to the patient's chronic sinusitis/chronic rhinitis, sinonasal endoscopy with debridement is indicated. After discussion of risks and benefits, and topical decongestion and anesthesia, an endoscope was used to perform nasal endoscopy with debridement. A timeout identifying the patient, the procedure, and any concerns was performed prior to beginning the procedure. Findings: Examination of the right nasal cavity revealed crusting and debris encompassing the entirety of the nasal cavity and ethmoid cavity with extension into the maxillary sinus and sphenoid sinus a nd this was all completely removed. There was associated mucoid secretions that were also evacuated. He had frontal region edema. On the left-hand side he had less significant crusting but it still fill ed his nasal cavity into the ethmoid region and this was removed. Again he had frontal region edema. He tolerated the procedure well and his nasal breathing was significantly improved following this. There were no concerning lesions within either nasal cavity or within either ethmoid cavity. 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 Chronic sinusitis s/p bilateral sinus surgery 11/06/17 3. Nasal airway obstruction s/p septoplasty and turbinate reductions 11/06/17 4. Rhinorrhea 5. Decreased sense of smell 6. COPD on supplemental oxygen Discussion: Shade had significant crusting on both sides. I recommended that he restart rinses and my nurse reviewed appropriate administration technique within. I recommended follow-up in 6 weeks. All questions were answered. Patient Discussion/Summary Please followup with me in 6 weeks for reevaluation or sooner with any questions or concerns. Please feel free to contact my office by calling [phone] with any questions. End of Encounter Meds Albuterol Sulfate (2.5 MG/3ML) 0.083% Inhalation Nebulization Solution; Therapy: (Recorded:26Jul2017) to Recorded AmLODIPine Besylate 10 MG Oral Tablet; Therapy: (Recorded:26Jul2017) to Recorded Aspirin EC 81 MG Oral Tablet Delayed Release; Therapy: (Recorded:26Jul2017) to Recorded Atorvastatin Calcium 40 MG Oral Tablet; Therapy: (Recorded:[id number]) to Recorded BD TB Syringe 27G X 1/2 1 ML Miscellaneous; Therapy: 03Jul2017 to Recorded Clopidogrel Bisulfate 75 MG Oral Tablet; Therapy: (Recorded:[id number]) to Recorded Clotrimazole 1 % External Cream; Therapy: 03Oct2017 to Recorded Compound Drug; Therapy: (Recorded:67Vxu4757) to Recorded DOK 100 MG Oral Capsule; TAKE 1 CAPSULE BY MOUTH 2 TIMES DAILY WHILE TAKING OXYCODONE; Therapy: [id number] to Recorded Fluticasone Propionate 50 MCG/ACT Nasal Suspension; Therapy: (Recorded:26Jul2017) to Recorded FreeStyle Lite Test In Vitro Strip; Therapy: 09May2017 to Recorded Furosemide 40 MG Oral Tablet; Therapy: (Recorded:26Jul2017) to Recorded Gemfibrozil 600 MG Oral Tablet; Therapy: (Recorded:26Jul2017) to Recorded Glimepiride 4 MG Oral Tablet; Therapy: (Recorded:26Jul2017) to Recorded HumuLIN R U-500 (CONCENTRATED) 500 UNIT/ML Subcutaneous Solution; Therapy: 17Jul2017 to Recorded Insulin Purified Lente (Pork) 100 U/ML SUSP; Therapy: (Recorded:26Jul2017) to Recorded Klor-Con M20 20 MEQ Oral Tablet Extended Release; Therapy: 29Aug2016 to Recorded LORazepam 1 MG Oral Tablet; Therapy: (Recorded:26Jul2017) to Recorded MetFORMIN HCl - 1000 MG Oral Tablet; Therapy: (Recorded:27Apr2017) to Recorded MetOLazone 2.5 MG Oral Tablet; Therapy: (Recorded:26Jul2017) to Recorded Metoprolol Succinate ER 100 MG Oral Tablet Extended Release 24 Hour; Therapy: (Recorded:26Jul2017) to Recorded Metoprolol Succinate ER 200 MG Oral Tablet Extended Release 24 Hour; Therapy: 29Aug2016 to Recorded Multi Vitamin/Minerals Oral Tablet; Therapy: (Recorded:26Jul2017) to Recorded Naproxen Sodium CAPS; Therapy: (Recorded:26Jul2017) to Recorded Nitroglycerin 0.4 MG Sublingual Tablet Sublingual; Therapy: (Recorded:26Jul2017) to Recorded Cannon Nasal [place] 0.65 % Nasal Solution; 2-4 SPRAYS EACH NOSTRIL TWO-THREE TIMES A DAY AND NEEDED; Therapy: 14Nov2017 to (Last Rx:[id number]) Requested for: 14Nov2017 Ordered Sandhya Lamb 33G Miscellaneous; Therapy: 19Sep2017 to Recorded OxyCODONE HCl - 5 MG Oral Tablet; take 1 tablet by mouth every 6 hours if needed for pain; Therapy: 07Nov2017 to Recorded PARoxetine HCl - 40 MG Oral Tablet; Therapy: (Recorded:26Jul2017) to Recorded Potassium Chloride 40 MEQ/15ML (20%) Oral Solution; Therapy: (Recorded:26Jul2017) to Recorded Ranexa 500 MG Oral Tablet Extended Release 12 Hour; Therapy: (Recorded:02Kgd2707) to Recorded TiZANidine HCl - 4 MG Oral Tablet; Therapy: [id number] to Recorded TraMADol HCl - 50 MG Oral Tablet; Therapy: 12Jul2017 to Recorded Ventolin HFA 108 (90 Base) MCG/ACT Inhalation Aerosol Solution; Therapy: 45Vau7911 to Recorded Signatures Electronically signed by : Eduardo Almeida MD; Jan 02 2018 11:40AM EST (Author) ESTABLISHED VISIT Observed: 11/21/2017 Status: UNK Source: [place] (OTOLARYNGOLOGY) 9:18 PM HOSPITALS REPOSITORY Chief Complaint 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 Chronic sinusitis s/p bilateral sinus surgery 11/06/17 3. Nasal airway obstruction s/p septoplasty and turbinate reductions 11/06/17 4. Rhinorrhea 5. Facial pressure 6. Decreased sense of smell 7. COPD on supplemental oxygen History of Present Illness Reason for visit: SHADE TEIXEIRA patient presents since last being seen 11/14/17. He has done well since his last evaluation. His nasal breathing has improved and he is using saline rinses regularly. He has had some small nasal bleeds since last assessment. Active Problems Benign neoplasm of ethmoidal sinus (212.0) (D14.0) Chronic ethmoidal sinusitis (473.2) (J32.2) Chronic maxillary sinusitis (473.0) (J32.0) Decreased sense of smell (781.1) (R43.8) Encounter for preadmission testing (V72.84) (Z01.818) Past Medical History History of anemia (V12.3) (Z86.2) History of arthritis (V13.4) (Z87.39) History of blood loss (V12.59) (Z87.898) History of bronchitis (V12.69) (Z87.09) History of chest pain (V13.89) (Z87.898) History of chronic obstructive lung disease (V12.69) (Z87.09) History of coronary artery disease (V12.59) (Z86.79) History of depression (V11.8) (Z86.59) History of deviated nasal septum (V12.69) (Z87.09) History of diabetes mellitus (V12.29) (Z86.39) History of gastroesophageal reflux (GERD) (V12.79) (Z87.19) History of heartburn (V12.79) (Z87.898) History of high cholesterol (V12.29) (Z86.39) History of hypertension (V12.59) (Z86.79) History of nasal congestion (V12.69) (Z87.09) History of shortness of breath (V13.89) (Z87.898) History of sleep apnea (V13.89) (Z86.69) History of snoring (V15.89) (Z87.898) History of Lung trouble (786.00) (J98.4) History of Nasal cavity mass (784.2) (R22.0) Surgical History History of Hip Replacement History of Knee Surgery History of Tonsillectomy Family History Family history of malignant neoplasm (V16.9) (Z80.9) Family history of Crohn's disease (V18.59) (Z83.79) Social History Former consumption of alcohol (V11.3) (Z87.898) Never a smoker Person living alone (V60.3) (Z60.2) Allergies No Known Drug Allergies Recorded By: Ana Ross; 04/27/2017 1:09:22 PM Current Meds Cannon Nasal [place] 0.65 % Nasal Solution; 2-4 SPRAYS EACH NOSTRIL TWO-THREE TIMES A DAY AND NEEDED; Therapy: [id number] to (Last Rx:[id number]) Requested for: [id number] Ordered Rx By: Eduardo Almeida; Dispense: 0 Days ; #:1 X 45 ML Bottle; Refill: 5;For: Chronic maxillary sinusitis; ZORA = N; Verified Transmission to [id number] Albuterol Sulfate (2.5 MG/3ML) 0.083% Inhalation Nebulization Solution; Therapy: (Recorded:26Jul2017) to Recorded Dispense: 0 Days ; #: Sufficient NEBU; Refill: 0; ZORA = N; Record; Last Updated By: Sharad Edward; 07/26/2017 1:50:25 PM AmLODIPine Besylate 10 MG Oral Tablet; Therapy: (Recorded:26Jul2017) to Recorded Dispense: 0 Days ; #: Sufficient TABS; Refill: 0; ZORA = N; Record; Last Updated By: Sharad Edward; 07/26/2017 1:50:24 PM Aspirin EC 81 MG Oral Tablet Delayed Release; Therapy: (Recorded:26Jul2017) to Recorded Dispense: 0 Days ; #: Sufficient TBEC; Refill: 0; ZORA = N; Record; Last Updated By: Sharad Edward; 07/26/2017 1:50:24 PM Atorvastatin Calcium 40 MG Oral Tablet; Therapy: (Recorded:26Jul2017) to Recorded Dispense: 0 Days ; #: Sufficient TABS; Refill: 0; ZORA = N; Record; Last Updated By: Sharad Edward; 07/26/2017 1:50:24 PM BD TB Syringe 27G X 1/2 1 ML Miscellaneous; Therapy: 03Jul2017 to Recorded Rx By: KIRIT; Dispense: 22 Days ; #:60 MISC; Refill: 0; ZORA = N; Record; Last Updated By: Yoselin Green; 10/10/2017 2:24:56 PM Clopidogrel Bisulfate 75 MG Oral Tablet; Therapy: (Recorded:26Jul2017) to Recorded Dispense: 0 Days ; #: Sufficient TABS; Refill: 0; ZORA = N; Record; Last Updated By: Sharad Edward; 07/26/2017 1:50:24 PM Clotrimazole 1 % External Cream; Therapy: 03Oct2017 to Recorded Rx By: NELSY; Dispense: 15 Days ; #:45 CREA; Refill: 0; ZORA = N; Record; Last Updated By: Yoselin Green; 10/10/2017 2:24:56 PM DOK 100 MG Oral Capsule; TAKE 1 CAPSULE BY MOUTH 2 TIMES DAILY WHILE TAKING OXYCODONE; Therapy: [id number] to Recorded Rx By: JUAN PABLO; Dispense: 15 Days ; #:30 CAPS; Refill: 0; ZORA = N; Record; Last Updated By: Manda Abernathy; 11/14/2017 2:41:47 PM Fluticasone Propionate 50 MCG/ACT Nasal Suspension; Therapy: (Recorded:26Jul2017) to Recorded Dispense: 0 Days ; #: Sufficient SUSP; Refill: 0; ZORA = N; Record; Last Updated By: Sharad Edward; 07/26/2017 1:50:25 PM FreeStyle Lite Test In Vitro Strip; Therapy: 09May2017 to Recorded Rx By: KIRIT; Dispense: 50 Days ; #:100 STRP; Refill: 0; ZORA = N; Record; Last Updated By: Yoselin Green; 10/10/2017 2:24:56 PM Furosemide 40 MG Oral Tablet; Therapy: (Recorded:26Jul2017) to Recorded Dispense: 0 Days ; #: Sufficient TABS; Refill: 0; ZORA = N; Record; Last Updated By: Sharad Edwadr; 07/26/2017 1:50:24 PM Gemfibrozil 600 MG Oral Tablet; Therapy: (Recorded:26Jul2017) to Recorded Dispense: 0 Days ; #: Sufficient TABS; Refill: 0; ZORA = N; Record; Last Updated By: Sharad Edward; 07/26/2017 1:50:25 PM Glimepiride 4 MG Oral Tablet; Therapy: (Recorded:26Jul2017) to Recorded Dispense: 0 Days ; #: Sufficient TABS; Refill: 0; ZORA = N; Record; Last Updated By: Sharad Edward; 07/26/2017 1:50:25 PM HumuLIN R U-500 (CONCENTRATED) 500 UNIT/ML Subcutaneous Solution; Therapy: 17Jul2017 to Recorded Rx By: KIRIT; Dispense: 30 Days ; #:40 SOLN; Refill: 0; ZORA = N; Record; Last Updated By: Yoselin Green; 10/10/2017 2:24:56 PM Insulin Purified Lente (Pork) 100 U/ML SUSP; Therapy: (Recorded:26Jul2017) to Recorded Dispense: 0 Days ; #: Sufficient SUSP; Refill: 0; ZORA = N; Record; Last Updated By: Sharad Edward; 07/26/2017 1:50:25 PM Klor-Con M20 20 MEQ Oral Tablet Extended Release; Therapy: 29Aug2016 to Recorded Rx By: KIRIT; Dispense: 30 Days ; #:180 TBCR; Refill: 0; ZORA = N; Record; Last Updated By: Yoselin Green; 10/10/2017 2:24:56 PM LORazepam 1 MG Oral Tablet; Therapy: (Recorded:26Jul2017) to Recorded Dispense: 0 Days ; #: Sufficient TABS; Refill: 0; ZORA = N; Record; Last Updated By: Sharad Edward; 07/26/2017 1:50:25 PM MetFORMIN HCl - 1000 MG Oral Tablet; Therapy: (Recorded:27Apr2017) to Recorded Dispense: 0 Days ; #: Sufficient TABS; Refill: 0; ZORA = N; Record; Last Updated By: Ana Ross; 04/27/2017 1:09:22 PM MetOLazone 2.5 MG Oral Tablet; Therapy: (Recorded:26Jul2017) to Recorded Dispense: 0 Days ; #: Sufficient TABS; Refill: 0; ZORA = N; Record; Last Updated By: Sharad Edward; 07/26/2017 1:50:25 PM Metoprolol Succinate ER 100 MG Oral Tablet Extended Release 24 Hour; Therapy: (Recorded:26Jul2017) to Recorded Dispense: 0 Days ; #: Sufficient TB24; Refill: 0; ZORA = N; Record; Last Updated By: Sharad Edward; 07/26/2017 1:50:25 PM Metoprolol Succinate ER 200 MG Oral Tablet Extended Release 24 Hour; Therapy: [id number] to Recorded Rx By: KIRIT; Dispense: 30 Days ; #:30 TB24; Refill: 0; ZORA = N; Record; Last Updated By: Yoselin Green; 10/10/2017 2:24:56 PM Multi Vitamin/Minerals Oral Tablet; Therapy: (Recorded:26Jul2017) to Recorded Dispense: 0 Days ; #: Sufficient TABS; Refill: 0; ZORA = N; Record; Last Updated By: Sharad Edward; 07/26/2017 1:50:25 PM Naproxen Sodium CAPS; Therapy: (Recorded:26Jul2017) to Recorded Dispense: 0 Days ; #: Sufficient CAPS; Refill: 0; ZORA = N; Record; Last Updated By: Sharad Edward; 07/26/2017 1:50:25 PM Nitroglycerin 0.4 MG Sublingual Tablet Sublingual; Therapy: (Recorded:26Jul2017) to Recorded Dispense: 0 Days ; #: Sufficient SUBL; Refill: 0; ZORA = N; Record; Last Updated By: Sharad Edward; 07/26/2017 1:50:25 PM Sandhya Lamb 33G Miscellaneous; Therapy: 19Sep2017 to Recorded Rx By: KIRIT; Dispense: 90 Days ; #:300 MISC; Refill: 0; ZORA = N; Record; Last Updated By: Yoselin Green; 10/10/2017 2:24:56 PM OxyCODONE HCl - 5 MG Oral Tablet; take 1 tablet by mouth every 6 hours if needed for pain; Therapy: [id number] to Recorded Rx By: JUAN PABLO; Dispense: 5 Days ; #:20 TABS; Refill: 0; ZORA = N; Record; Last Updated By: Manda Abernathy; 11/14/2017 2:41:47 PM PARoxetine HCl - 40 MG Oral Tablet; Therapy: (Recorded:26Jul2017) to Recorded Dispense: 0 Days ; #: Sufficient TABS; Refill: 0; ZORA = N; Record; Last Updated By: Sharad Edward; 07/26/2017 1:50:25 PM Potassium Chloride 40 MEQ/15ML (20%) Oral Solution; Therapy: (Recorded:26Jul2017) to Recorded Dispense: 0 Days ; #: Sufficient SOLN; Refill: 0; ZORA = N; Record; Last Updated By: Sharad Edward; 07/26/2017 1:50:25 PM Ranexa 500 MG Oral Tablet Extended Release 12 Hour; Therapy: (Recorded:26Jul2017) to Recorded Dispense: 0 Days ; #: Sufficient TB12; Refill: 0; ZORA = N; Record; Last Updated By: Sharad Edward; 07/26/2017 1:50:25 PM TiZANidine HCl - 4 MG Oral Tablet; Therapy: 02Aug2017 to Recorded Rx By: ROSLYN; Dispense: 30 Days ; #:30 TABS; Refill: 0; ZORA = N; Record; Last Updated By: Yoselin Green; 10/10/2017 2:24:56 PM TraMADol HCl - 50 MG Oral Tablet; Therapy: 12Jul2017 to Recorded Rx By: ROSLYN; Dispense: 7 Days ; #:14 TABS; Refill: 0; ZORA = N; Record; Last Updated By: Yoselin Green; 10/10/2017 2:24:56 PM Ventolin HFA 108 (90 Base) MCG/ACT Inhalation Aerosol Solution; Therapy: 28Sep2017 to Recorded Rx By: ANN; Dispense: 17 Days ; #:18 AERS; Refill: 0; ZORA = N; Record; Last Updated By: Yoselin Green; 10/10/2017 2:24:56 PM Physical Exam Nose: On external exam there are neither lesions nor asymmetry of the nasal tip/dorsum. On anterior rhinoscopy, visualization posteriorly is limited on anterior examination. For this reason, to adequate ly evaluate posteriorly for masses, source of epistaxis, polypoid disease, debridement, and/or signs of infections, nasal endoscopy is indicated. (Please see procedure below.) SINONASAL ENDOSCOPY WITH DEBRIDEMENT (CPT 63991-67-13): Due to the patient's chronic sinusitis/chronic rhinitis, sinonasal endoscopy with debridement is indicated. After discussion of risks and benefits, and topical decongestion and anesthesia, an endoscope was used to perform nasal endoscopy with debridement. A timeout identifying the patient, the procedure, and any concerns was performed prior to beginning the procedure. Findings: Examination of the right nasal cavity revealed crusting and debris within the posterior ethmoid cavity and at the face of the sphenoid that was completely removed. Following this all dissected sinuses on the right were widely patent. On the left crusting and debris was removed from the sphenoid face and ethmoid cavity. Following this all dissected sinuses on the left were patent. He tolerated the procedure well. Results/Data Surgical [id number] 12:00AMEduardo Almeida Test NameResultFlagReference Case Surgical Pathology(Report) Name SHADE TEIXEIRAConstance Pathologist: Patricia Lenz MD, Ph.D. Date of Procedure: 11/06/2017 Date Received: 8 Date Reported 11/10/2017 Submitting Physician: EDUARDO ALMEIDA MD Location: [facility] Other External # FINAL DIAGNOSIS A. RIGHT POSTERIOR INFERIOR SEPTUM : --RESPIRATORY MUCOSA WITH MILD CHRONIC INFLAMMATION --NO EVIDENCE OF TUMOR B. RIGHT ANTERIOR INFERIOR SEPTUM: --RESPIRATORY MUCOSA WITH MILD CHRONIC INFLAMMATION --NO EVIDENCE OF TUMOR C. RIGHT AN TERIOR SUPERIOR MIDDLE TURBINATE MARGIN: --RESPIRATORY MUCOSA WITH MILD CHRONIC INFLAMMATION --NO EVIDENCE OF TUMOR D. RIGHT POSTERIOR SUPERIOR SEPTAL MARGIN: --RESPIRATORY MUCOSA WITH MILD CHRONIC I NFLAMMATION --NO EVIDENCE OF TUMOR E. RIGHT SUPERIOR TURBINATE: --BONE AND RESPIRATORY MUCOSA WITH MILD CHRONIC INFLAMMATION --NO EVIDENCE OF TUMOR F. RIGHT SINUS CONTENTS: --BONE AND RESPIRATORY MU COSA WITH MILD CHRONIC INFLAMMATION --NO EVIDENCE OF TUMOR G. SEPTUM: --BONE AND CARTILAGE WITHOUT SIGNIFICANT PATHOLOGIC FINDINGS --NO EVIDENCE OF TUMOR H. LEFT SINUS CONTENTS: --BONE AND CARTILAGE WITHOUT SIGNIFICANT PATHOLOGIC FINDINGS --NO EVIDENCE OF TUMOR I. LEFT MAXILLARY SINUS CONTENTS: --RESPIRATORY MUCOSA WITH SUBMUCOSAL FIBROSIS AND CHOLESTEROL GRANULOMA. J. MICRODEBRIDER: --FRAGMEN TS OF MESENCHYMAL NEOPLASM, CONSISTENT WITH SINONASAL GLOMANGIOPERICYTOMA. SEE NOTE Note: Part J contains multiple fragments of sinonasal mucosa and bone. There are scattered fragments of mesenchymal n eoplasm, morphologically consistent with previously biopsied glomangiopericytoma. No evidence of necrosis or bone invasion is identified. See [id number]. Electronically Signed Out By Patricia Lenz MD, Ph.D./MAC By the signature on this report, the individual or group listed as making the Final Interpretation/Diagnosis certifies that they have reviewed this case. Int raoperative Consultation: A: RT POSTERIOR INFERIOR SEPTUM Frozen Section 1: Date Ordered: 11/06/2017 13:58 Date Received: 11/06/2017 13:58 Date Called: 11/06/2017 14:48 Intraoperative Diagnosis: A: F ibrovascular soft tissue with mucinous glands Intraoperative Consult Pathologist(s): MARY ELLEN WILLINGHAM M.D. (P) B: RT ANTERIOR INFERIOR SEPTUM Frozen Section 1: Date Ordered: 11/06/2017 13:58 Date Rec eived: 11/06/2017 13:58 Date Called: 11/06/2017 14:48 Intraoperative Diagnosis: B: Fibromuscular soft tissue with mucinous glands Intraoperative Consult Pathologist(s): MARY ELLEN WILLINGHAM M.D. (P) C: RT ANTERIOR SUPERIOR MIDDLE TURBINATE MARGIN Frozen Section 1: Date Ordered: 11/06/2017 13:58 Date Received: 11/06/2017 13:58 Date Called: 11/06/2017 14:48 Intraoperative Diagnosis: C: Respiratory muco sa and fibrovascular soft tissue with mucinous glands defer to permanent (cannot exclude involvement by angiomatosis with certainty) Intraoperative Consult Pathologist(s): MARY ELLEN WILLINGHAM M.D. (P) D: RT POSTERIOR SUPERIOR SEPTAL M ARGIN Frozen Section 1: Date Ordered: 11/06/2017 13:58 Date Received: 11/06/2017 13:58 Date Called: 11/06/2017 14:48 Intraoperative Diagnosis: D: Respiratory mucosa and fibrovascular soft tissue with mucinous glands defer to permanent (cannot exclude involvement by angiomatosis with certainty) Intraoperative Consult Pathologist(s): MARY ELLEN WILLINGHAM M.D. (P) ao/2017 Clinical History: Right glomangiopericytoma Specimens Submitted As: A: RT POSTERIOR INFERIOR SEPTUM B: RT ANTERIOR INFERIOR SEPTUM C: RT ANTERIOR SUPERIOR MIDDLE TURBINATE MARGIN D: RT POS TERIOR SUPERIOR SEPTAL M ARGIN E: RIGHT SUPERIOR TURBINATE F: RIGHT SINUS CONTENTS G: SEPTUM H: LEFT SINUS CONTENTS I: LEFT MAXILLARY SINUS CONTENTS J: MICRODEBRDIER Gross Description: A: Receiv ed fresh, labeled with the patient's name and hospital number and R posterior inferior septum, is one piece of red-yellow soft tissue measuring 0.5 x 0.3 x 0.1 cm. The specimen is submitted in toto in one cassette. NXJ/AO B: Received fresh, labeled with the patient's name and hospital number and R anterior inferior septum, is one piece of red-yellow soft tissue measuring 0.6 x 0.3 x 0.1 cm. The s pecimen is submitted in toto in one cassette. NXJ/AO C:Received fresh, labeled with the patient's name and hospital number and R anterior superior middle turbinate, is one piece of red-yellow soft ti ssue measuring 0.6 x 0.5 x 0.2 cm. The specimen is submitted in toto in one cassette. NXJ/AO D:Received fresh, labeled with the patient's name and hospital number and R posterior superior septum shaka n, is one piece of red-yellow soft tissue measuring 0.4 x 0.1 x 0.1 cm. The specimen is submitted in toto in one cassette. NXJ/AO E: Received fresh, labeled with the patient's name and hospital number and A, are multiple, irregular segments of light mejia cartilage, bone, and soft tissue aggregating to 1.5 x 1.0 x 0.7 cm. The specimen is submitted entirely in one cassette following decalcification. LMP F: Received fresh, labeled with the patient's name and hospital number and B-right sinus contents, are multiple, irregular segments of pink-mejia cartilage, bone, and soft tissue aggregating to 2.7 x 1.8 x 0.7 cm. The specimen is submitted in toto in one cassette following light decalcification. LMP G: Received fresh, labeled with the patient's name and hospital number and C, are multiple, irr egular segments of light mejia cartilage and bone aggregating to 3.0 x 2.2 x 0.8 cm. The specimen is submitted entirely in 2 cassettes following decalcification. LMP H: Received fresh, labeled with the p atient's name and hospital number and D-L sinus contents, are multiple, irregular segments of pink-mejia cartilage, bone, and soft tissue aggregating to 3.0 x 2.0 x 1.0 cm. The specimen is submitted ent irely in 2 cassettes following decalcification. LMP I: Received in formalin, labeled with the patient's name and hospital number and A, are multiple, irregular segments of soft tissue aggregating to 1.2 x 0.4 x 0.1 cm.The specimen is entirely submitted in one cassette. IAD J: Received in formalin, labeled with the patient's name and hospital number and B, are multiple, irregular segments of mejia -pink soft tissue, possible cartilage aggregating to 3.5 x 2.4 x 2.2 cm. The specimen is submitted entirely in 5 cassettes. IAD lmp/11/07/2017 Diagnoses/Problems Chronic ethmoidal sinusitis (473.2) (J32.2) Chronic maxillary sinusitis (473.0) (J32.0) Benign neoplasm of ethmoidal sinus (212.0) (D14.0) Provider Impressions 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 Chronic sinusitis s/p bilateral sinus surgery 11/06/17 3. Nasal airway obstruction s/p septoplasty and turbinate reductions 11/06/17 4. Rhinorrhea 5. Decreased sense of smell 6. COPD on supplemental oxygen Discussion: Shade appeared very well on examination today. I have recommended that he continue saline rinses and follow up in about 4-6 weeks. All questions were answered. Patient Discussion/Summary Please followup with me in 4-6 weeks for reevaluation or sooner with any questions or concerns. Please feel free to contact my office by calling [phone] with any questions. End of Encounter Meds Albuterol Sulfate (2.5 MG/3ML) 0.083% Inhalation Nebulization Solution; Therapy: (Recorded:26Jul2017) to Recorded AmLODIPine Besylate 10 MG Oral Tablet; Therapy: (Recorded:26Jul2017) to Recorded Aspirin EC 81 MG Oral Tablet Delayed Release; Therapy: (Recorded:26Jul2017) to Recorded Atorvastatin Calcium 40 MG Oral Tablet; Therapy: (Recorded:26Jul2017) to Recorded BD TB Syringe 27G X 1/2 1 ML Miscellaneous; Therapy: 03Jul2017 to Recorded Clopidogrel Bisulfate 75 MG Oral Tablet; Therapy: (Recorded:26Jul2017) to Recorded Clotrimazole 1 % External Cream; Therapy: 03Oct2017 to Recorded DOK 100 MG Oral Capsule; TAKE 1 CAPSULE BY MOUTH 2 TIMES DAILY WHILE TAKING OXYCODONE; Therapy: 07Nov2017 to Recorded Fluticasone Propionate 50 MCG/ACT Nasal Suspension; Therapy: (Recorded:26Jul2017) to Recorded FreeStyle Lite Test In Vitro Strip; Therapy: 09May2017 to Recorded Furosemide 40 MG Oral Tablet; Therapy: (Recorded:26Jul2017) to Recorded Gemfibrozil 600 MG Oral Tablet; Therapy: (Recorded:26Jul2017) to Recorded Glimepiride 4 MG Oral Tablet; Therapy: (Recorded:26Jul2017) to Recorded HumuLIN R U-500 (CONCENTRATED) 500 UNIT/ML Subcutaneous Solution; Therapy: 17Jul2017 to Recorded Insulin Purified Lente (Pork) 100 U/ML SUSP; Therapy: (Recorded:26Jul2017) to Recorded Klor-Con M20 20 MEQ Oral Tablet Extended Release; Therapy: 29Aug2016 to Recorded LORazepam 1 MG Oral Tablet; Therapy: (Recorded:26Jul2017) to Recorded MetFORMIN HCl - 1000 MG Oral Tablet; Therapy: (Recorded:27Apr2017) to Recorded MetOLazone 2.5 MG Oral Tablet; Therapy: (Recorded:85Vdo5811) to Recorded Metoprolol Succinate ER 100 MG Oral Tablet Extended Release 24 Hour; Therapy: (Recorded:26Jul2017) to Recorded Metoprolol Succinate ER 200 MG Oral Tablet Extended Release 24 Hour; Therapy: 57Vld4130 to Recorded Multi Vitamin/Minerals Oral Tablet; Therapy: (Recorded:57Lqi0573) to Recorded Naproxen Sodium CAPS; Therapy: (Recorded:26Jul2017) to Recorded Nitroglycerin 0.4 MG Sublingual Tablet Sublingual; Therapy: (Recorded:26Jul2017) to Recorded Cannon Nasal [place] 0.65 % Nasal Solution; 2-4 SPRAYS EACH NOSTRIL TWO-THREE TIMES A DAY AND NEEDED; Therapy: 14Nov2017 to (Last Rx:14Nov2017) Requested for: 14Nov2017 Ordered OneTouch Delica Lancets 33G Miscellaneous; Therapy: 19Sep2017 to Recorded OxyCODONE HCl - 5 MG Oral Tablet; take 1 tablet by mouth every 6 hours if needed for pain; Therapy: 16Srx3605 to Recorded PARoxetine HCl - 40 MG Oral Tablet; Therapy: (Recorded:26Jul2017) to Recorded Potassium Chloride 40 MEQ/15ML (20%) Oral Solution; Therapy: (Recorded:26Jul2017) to Recorded Ranexa 500 MG Oral Tablet Extended Release 12 Hour; Therapy: (Recorded:26Jul2017) to Recorded TiZANidine HCl - 4 MG Oral Tablet; Therapy: 02Aug2017 to Recorded TraMADol HCl - 50 MG Oral Tablet; Therapy: 12Jul2017 to Recorded Ventolin HFA 108 (90 Base) MCG/ACT Inhalation Aerosol Solution; Therapy: 28Sep2017 to Recorded Signatures Electronically signed by : Eduardo Almeida MD; Nov 21 2017 9:18PM EST (Author) ESTABLISHED VISIT Observed: 11/14/2017 Status: UNK Source: [facility] (OTOLARYNGOLOG[facility]) 7:28 PM HOSPITALS REPOSITORY Chief Complaint 1. Right paranasal sinus glomangiopericytoma 2. Rhinorrhea 3. Facial pressure 4. Nasal airway obstruction 5. Decreased sense of smell 6. Deviated nasal septum 7. Nasal bleeding 8. COPD on supplemental oxygen 9. Anti-coagulation usage: currently on apixaban for history of DVT, ASA 81 for stent, Plavix History of Present Illness Shade presents for his first postoperative follow-up since undergoing endoscopic resection of a right sinonasal glomangiopericytoma along with bilateral sinus surgery and nasal airway surgery performed November 06, 2017. He has done well in the interval time but did mention some lower back pain that has been steadily improving. Active Problems Benign neoplasm of ethmoidal sinus (212.0) (D14.0) Decreased sense of smell (781.1) (R43.8) Encounter for preadmission testing (V72.84) (Z01.818) Past Medical History History of anemia (V12.3) (Z86.2) History of arthritis (V13.4) (Z87.39) History of blood loss (V12.59) (Z87.898) History of bronchitis (V12.69) (Z87.09) History of chest pain (V13.89) (Z87.898) History of chronic obstructive lung disease (V12.69) (Z87.09) History of coronary artery disease (V12.59) (Z86.79) History of depression (V11.8) (Z86.59) History of deviated nasal septum (V12.69) (Z87.09) History of diabetes mellitus (V12.29) (Z86.39) History of gastroesophageal reflux (GERD) (V12.79) (Z87.19) History of heartburn (V12.79) (Z87.898) History of high cholesterol (V12.29) (Z86.39) History of hypertension (V12.59) (Z86.79) History of nasal congestion (V12.69) (Z87.09) History of shortness of breath (V13.89) (Z87.898) History of sleep apnea (V13.89) (Z86.69) History of snoring (V15.89) (Z87.898) History of Lung trouble (786.00) (J98.4) History of Nasal cavity mass (784.2) (R22.0) Surgical History History of Hip Replacement History of Knee Surgery History of Tonsillectomy Family History Family history of malignant neoplasm (V16.9) (Z80.9) Family history of Crohn's disease (V18.59) (Z83.79) Social History Former consumption of alcohol (V11.3) (Z87.898) Never a smoker Person living alone (V60.3) (Z60.2) Allergies No Known Drug Allergies Recorded By: Ana Ross; 04/27/2017 1:09:22 PM Current Meds Albuterol Sulfate (2.5 MG/3ML) 0.083% Inhalation Nebulization Solution; Therapy: (Recorded:26Jul2017) to Recorded Dispense: 0 Days ; #: Sufficient NEBU; Refill: 0; ZORA = N; Record; Last Updated By: Sharad Edward; 07/26/2017 1:50:25 PM AmLODIPine Besylate 10 MG Oral Tablet; Therapy: (Recorded:26Jul2017) to Recorded Dispense: 0 Days ; #: Sufficient TABS; Refill: 0; ZORA = N; Record; Last Updated By: Sharad Edward; 07/26/2017 1:50:24 PM Aspirin Childrens 81 MG Oral Tablet Chewable; Therapy: (Recorded:26Jul2017) to Recorded Dispense: 0 Days ; #: Sufficient CHEW; Refill: 0; ZORA = N; Record; Last Updated By: Sharad Edward; 07/26/2017 1:50:25 PM Aspirin EC 81 MG Oral Tablet Delayed Release; Therapy: (Recorded:26Jul2017) to Recorded Dispense: 0 Days ; #: Sufficient TBEC; Refill: 0; ZORA = N; Record; Last Updated By: Sharad Edward; 07/26/2017 1:50:24 PM Atorvastatin Calcium 40 MG Oral Tablet; Therapy: (Recorded:26Jul2017) to Recorded Dispense: 0 Days ; #: Sufficient TABS; Refill: 0; ZORA = N; Record; Last Updated By: Sharad Edward; 07/26/2017 1:50:24 PM BD TB Syringe 27G X 1/2 1 ML Miscellaneous; Therapy: 03Jul2017 to Recorded Rx By: KIRIT; Dispense: 22 Days ; #:60 MISC; Refill: 0; ZORA = N; Record; Last Updated By: Yoselin Green; 10/10/2017 2:24:56 PM Clopidogrel Bisulfate 75 MG Oral Tablet; Therapy: (Recorded:26Jul2017) to Recorded Dispense: 0 Days ; #: Sufficient TABS; Refill: 0; ZORA = N; Record; Last Updated By: Sharad Edward; 07/26/2017 1:50:24 PM Clotrimazole 1 % External Cream; Therapy: 03Oct2017 to Recorded Rx By: NELSY; Dispense: 15 Days ; #:45 CREA; Refill: 0; ZORA = N; Record; Last Updated By: Yoselin Green; 10/10/2017 2:24:56 PM DOK 100 MG Oral Capsule; TAKE 1 CAPSULE BY MOUTH 2 TIMES DAILY WHILE TAKING OXYCODONE; Therapy: 07Nov2017 to Recorded Rx By: JUAN PABLO; Dispense: 15 Days ; #:30 CAPS; Refill: 0; ZORA = N; Record; Last Updated By: Manda Abernathy; 11/14/2017 2:41:47 PM Doxycycline Hyclate 100 MG Oral Tablet; TAKE 1 TABLET BY MOUTH 2 TIMES DAILY UNTIL FOLLOW UP APPOINTMENT; Therapy: 07Nov2017 to Recorded Rx By: JUAN PABLO; Dispense: 10 Days ; #:20 TABS; Refill: 0; ZORA = N; Record; Last Updated By: Manda Abernathy; 11/14/2017 2:41:47 PM Fluticasone Propionate 50 MCG/ACT Nasal Suspension; Therapy: (Recorded:26Jul2017) to Recorded Dispense: 0 Days ; #: Sufficient SUSP; Refill: 0; ZORA = N; Record; Last Updated By: Sharad Edward; 07/26/2017 1:50:25 PM FreeStyle Lite Test In Vitro Strip; Therapy: 09May2017 to Recorded Rx By: KIRIT; Dispense: 50 Days ; #:100 STRP; Refill: 0; ZORA = N; Record; Last Updated By: Yoselin Green; 10/10/2017 2:24:56 PM Furosemide 40 MG Oral Tablet; Therapy: (Recorded:26Jul2017) to Recorded Dispense: 0 Days ; #: Sufficient TABS; Refill: 0; ZORA = N; Record; Last Updated By: Sharad Edward; 07/26/2017 1:50:24 PM Gemfibrozil 600 MG Oral Tablet; Therapy: (Recorded:26Jul2017) to Recorded Dispense: 0 Days ; #: Sufficient TABS; Refill: 0; ZORA = N; Record; Last Updated By: Sharad Edward; 07/26/2017 1:50:25 PM Glimepiride 4 MG Oral Tablet; Therapy: (Recorded:26Jul2017) to Recorded Dispense: 0 Days ; #: Sufficient TABS; Refill: 0; ZORA = N; Record; Last Updated By: Sharad Edward; 07/26/2017 1:50:25 PM HumuLIN R U-500 (CONCENTRATED) 500 UNIT/ML Subcutaneous Solution; Therapy: 17Jul2017 to Recorded Rx By: KIRIT; Dispense: 30 Days ; #:40 SOLN; Refill: 0; ZORA = N; Record; Last Updated By: Yoselin Green; 10/10/2017 2:24:56 PM Insulin Purified Lente (Pork) 100 U/ML SUSP; Therapy: (Recorded:26Jul2017) to Recorded Dispense: 0 Days ; #: Sufficient SUSP; Refill: 0; ZORA = N; Record; Last Updated By: Sharad Edward; 07/26/2017 1:50:25 PM Klor-Con M20 20 MEQ Oral Tablet Extended Release; Therapy: [id number] to Recorded Rx By: KIRIT; Dispense: 30 Days ; #:180 TBCR; Refill: 0; ZORA = N; Record; Last Updated By: Yoselin Green; 10/10/2017 2:24:56 PM LORazepam 1 MG Oral Tablet; Therapy: (Recorded:26Jul2017) to Recorded Dispense: 0 Days ; #: Sufficient TABS; Refill: 0; ZORA = N; Record; Last Updated By: Sharad Edward; 07/26/2017 1:50:25 PM MetFORMIN HCl - 1000 MG Oral Tablet; Therapy: (Recorded:27Apr2017) to Recorded Dispense: 0 Days ; #: Sufficient TABS; Refill: 0; ZORA = N; Record; Last Updated By: Ana Ross; 04/27/2017 1:09:22 PM MetOLazone 2.5 MG Oral Tablet; Therapy: (Recorded:26Jul2017) to Recorded Dispense: 0 Days ; #: Sufficient TABS; Refill: 0; ZORA = N; Record; Last Updated By: Sharad Edward; 07/26/2017 1:50:25 PM Metoprolol Succinate ER 100 MG Oral Tablet Extended Release 24 Hour; Therapy: (Recorded:[id number]) to Recorded Dispense: 0 Days ; #: Sufficient TB24; Refill: 0; ZORA = N; Record; Last Updated By: Sharad Edawrd; 07/26/2017 1:50:25 PM Metoprolol Succinate ER 200 MG Oral Tablet Extended Release 24 Hour; Therapy: [id number] to Recorded Rx By: KIRIT; Dispense: 30 Days ; #:30 TB24; Refill: 0; ZORA = N; Record; Last Updated By: Yoselin Green; 10/10/2017 2:24:56 PM Multi Vitamin/Minerals Oral Tablet; Therapy: (Recorded:[id number]) to Recorded Dispense: 0 Days ; #: Sufficient TABS; Refill: 0; ZORA = N; Record; Last Updated By: Sharad Edward; 07/26/2017 1:50:25 PM Naproxen Sodium CAPS; Therapy: (Recorded:23Zeo4748) to Recorded Dispense: 0 Days ; #: Sufficient CAPS; Refill: 0; ZORA = N; Record; Last Updated By: Sharad Edward; 07/26/2017 1:50:25 PM Nitroglycerin 0.4 MG Sublingual Tablet Sublingual; Therapy: (Recorded:[id number]) to Recorded Dispense: 0 Days ; #: Sufficient SUBL; Refill: 0; ZORA = N; Record; Last Updated By: Sharad Edward; 07/26/2017 1:50:25 PM OneRadha Cornell Lancmiguel angel 33G Miscellaneous; Therapy: 19Sep2017 to Recorded Rx By: KIRIT; Dispense: 90 Days ; #:300 MISC; Refill: 0; ZORA = N; Record; Last Updated By: Yoselin Green; 10/10/2017 2:24:56 PM OxyCODONE HCl - 5 MG Oral Tablet; take 1 tablet by mouth every 6 hours if needed for pain; Therapy: [id number] to Recorded Rx By: JUAN PABLO; Dispense: 5 Days ; #:20 TABS; Refill: 0; ZORA = N; Record; Last Updated By: Manda Abernathy; 11/14/2017 2:41:47 PM PARoxetine HCl - 40 MG Oral Tablet; Therapy: (Recorded:[id number]) to Recorded Dispense: 0 Days ; #: Sufficient TABS; Refill: 0; ZORA = N; Record; Last Updated By: Sharad Edward; 07/26/2017 1:50:25 PM Potassium Chloride 40 MEQ/15ML (20%) Oral Solution; Therapy: (Recorded:[id number]) to Recorded Dispense: 0 Days ; #: Sufficient SOLN; Refill: 0; ZORA = N; Record; Last Updated By: Sharad Edward; 07/26/2017 1:50:25 PM Ranexa 500 MG Oral Tablet Extended Release 12 Hour; Therapy: (Recorded:[id number]) to Recorded Dispense: 0 Days ; #: Sufficient TB12; Refill: 0; ZORA = N; Record; Last Updated By: Sharad Edward; 07/26/2017 1:50:25 PM TiZANidine HCl - 4 MG Oral Tablet; Therapy: 02Aug2017 to Recorded Rx By: ROSLYN; Dispense: 30 Days ; #:30 TABS; Refill: 0; ZORA = N; Record; Last Updated By: Yoselin Green; 10/10/2017 2:24:56 PM TraMADol HCl - 50 MG Oral Tablet; Therapy: 12Jul2017 to Recorded Rx By: ROSLYN; Dispense: 7 Days ; #:14 TABS; Refill: 0; ZORA = N; Record; Last Updated By: Yoselin Green; 10/10/2017 2:24:56 PM Ventolin HFA 108 (90 Base) MCG/ACT Inhalation Aerosol Solution; Therapy: 28Sep2017 to Recorded Rx By: ANN; Dispense: 17 Days ; #:18 AERS; Refill: 0; ZORA = N; Record; Last Updated By: Yoselin Green; 10/10/2017 2:24:56 PM Physical Exam Bilateral Mitchell splints were removed. Nose: On external exam there are neither lesions nor asymmetry of the nasal tip/dorsum. On anterior rhinoscopy, visualization posteriorly is limited on anterior examination. For this reason, to adequate ly evaluate posteriorly for masses, source of epistaxis, polypoid disease, debridement, and/or signs of infections, nasal endoscopy is indicated. (Please see procedure below.) SINONASAL ENDOSCOPY WITH DEBRIDEMENT (CPT 64992-98-06): Due to the patient's chronic sinusitis/chronic rhinitis, sinonasal endoscopy with debridement is indicated. After discussion of risks and benefits, and topical decongestion and anesthesia, an endoscope was used to perform nasal endoscopy with debridement. A timeout identifying the patient, the procedure, and any concerns was performed prior to beginning the procedure. Findings: Examination of the right nasal cavity revealed crusting and debris along the medial aspect of the maxillary sinus, within the ethmoid cavity superiorly, and within the sphenoid sinus. This was removed and all dissected sinuses were patent including the right frontal sinus. On the left-hand side crusting and debris was removed from the maxillary sinus and ethmoid cavity. The sphenoid sinus was widely patent. Results/Data Surgical [id number] 12:00AMEduardo Almeida Test NameResultFlagReference Case Surgical Pathology(Report) Name SHADE TEIXEIRA Pathologist: Patricia Lenz MD, Ph.D. Date of Procedure: 11/06/2017 Date Received: 8 Date Reported 11/10/2017 Submitting Physician: EDUARDO ALMEIDA MD Location: [facility] Other External # FINAL DIAGNOSIS A. RIGHT POSTERIOR INFERIOR SEPTUM : --RESPIRATORY MUCOSA WITH MILD CHRONIC INFLAMMATION --NO EVIDENCE OF TUMOR B. RIGHT ANTERIOR INFERIOR SEPTUM: --RESPIRATORY MUCOSA WITH MILD CHRONIC INFLAMMATION --NO EVIDENCE OF TUMOR C. RIGHT AN TERIOR SUPERIOR MIDDLE TURBINATE MARGIN: --RESPIRATORY MUCOSA WITH MILD CHRONIC INFLAMMATION --NO EVIDENCE OF TUMOR D. RIGHT POSTERIOR SUPERIOR SEPTAL MARGIN: --RESPIRATORY MUCOSA WITH MILD CHRONIC I NFLAMMATION --NO EVIDENCE OF TUMOR E. RIGHT SUPERIOR TURBINATE: --BONE AND RESPIRATORY MUCOSA WITH MILD CHRONIC INFLAMMATION --NO EVIDENCE OF TUMOR F. RIGHT SINUS CONTENTS: --BONE AND RESPIRATORY MU COSA WITH MILD CHRONIC INFLAMMATION --NO EVIDENCE OF TUMOR G. SEPTUM: --BONE AND CARTILAGE WITHOUT SIGNIFICANT PATHOLOGIC FINDINGS --NO EVIDENCE OF TUMOR H. LEFT SINUS CONTENTS: --BONE AND CARTILAGE WITHOUT SIGNIFICANT PATHOLOGIC FINDINGS --NO EVIDENCE OF TUMOR I. LEFT MAXILLARY SINUS CONTENTS: --RESPIRATORY MUCOSA WITH SUBMUCOSAL FIBROSIS AND CHOLESTEROL GRANULOMA. J. MICRODEBRIDER: --FRAGMEN TS OF MESENCHYMAL NEOPLASM, CONSISTENT WITH SINONASAL GLOMANGIOPERICYTOMA. SEE NOTE Note: Part J contains multiple fragments of sinonasal mucosa and bone. There are scattered fragments of mesenchymal n eoplasm, morphologically consistent with previously biopsied glomangiopericytoma. No evidence of necrosis or bone invasion is identified. See [id number]. Electronically Signed Out By Patricia Lenz MD, Ph.D./MAC By the signature on this report, the individual or group listed as making the Final Interpretation/Diagnosis certifies that they have reviewed this case. Int raoperative Consultation: A: RT POSTERIOR INFERIOR SEPTUM Frozen Section 1: Date Ordered: 11/06/2017 13:58 Date Received: 11/06/2017 13:58 Date Called: 11/06/2017 14:48 Intraoperative Diagnosis: A: F ibrovascular soft tissue with mucinous glands Intraoperative Consult Pathologist(s): MARY ELLEN WILLINGHAM M.D. (P) B: RT ANTERIOR INFERIOR SEPTUM Frozen Section 1: Date Ordered: 11/06/2017 13:58 Date Rec eived: 11/06/2017 13:58 Date Called: 11/06/2017 14:48 Intraoperative Diagnosis: B: Fibromuscular soft tissue with mucinous glands Intraoperative Consult Pathologist(s): MARY ELLEN WILLINGHAM M.D. (P) C: RT ANTERIOR SUPERIOR MIDDLE TURBINATE MARGIN Frozen Section 1: Date Ordered: 11/06/2017 13:58 Date Received: 11/06/2017 13:58 Date Called: 11/06/2017 14:48 Intraoperative Diagnosis: C: Respiratory muco sa and fibrovascular soft tissue with mucinous glands defer to permanent (cannot exclude involvement by angiomatosis with certainty) Intraoperative Consult Pathologist(s): MARY ELLEN WILLINGHAM M.D. (P) D: RT POSTERIOR SUPERIOR SEPTAL M ARGIN Frozen Section 1: Date Ordered: 11/06/2017 13:58 Date Received: 11/06/2017 13:58 Date Called: 11/06/2017 14:48 Intraoperative Diagnosis: D: Respiratory mucosa and fibrovascular soft tissue with mucinous glands defer to permanent (cannot exclude involvement by angiomatosis with certainty) Intraoperative Consult Pathologist(s): MARY ELLEN WILLINGHAM M.D. (P) ao/2017 Clinical History: Right glomangiopericytoma Specimens Submitted As: A: RT POSTERIOR INFERIOR SEPTUM B: RT ANTERIOR INFERIOR SEPTUM C: RT ANTERIOR SUPERIOR MIDDLE TURBINATE MARGIN D: RT POS TERIOR SUPERIOR SEPTAL M ARGIN E: RIGHT SUPERIOR TURBINATE F: RIGHT SINUS CONTENTS G: SEPTUM H: LEFT SINUS CONTENTS I: LEFT MAXILLARY SINUS CONTENTS J: MICRODEBRDIER Gross Description: A: Receiv ed fresh, labeled with the patient's name and hospital number and R posterior inferior septum, is one piece of red-yellow soft tissue measuring 0.5 x 0.3 x 0.1 cm. The specimen is submitted in toto in one cassette. NXJ/AO B: Received fresh, labeled with the patient's name and hospital number and R anterior inferior septum, is one piece of red-yellow soft tissue measuring 0.6 x 0.3 x 0.1 cm. The s pecimen is submitted in toto in one cassette. NXJ/AO C:Received fresh, labeled with the patient's name and hospital number and R anterior superior middle turbinate, is one piece of red-yellow soft ti ssue measuring 0.6 x 0.5 x 0.2 cm. The specimen is submitted in toto in one cassette. NXJ/AO D:Received fresh, labeled with the patient's name and hospital number and R posterior superior septum shaka n, is one piece of red-yellow soft tissue measuring 0.4 x 0.1 x 0.1 cm. The specimen is submitted in toto in one cassette. NXJ/AO E: Received fresh, labeled with the patient's name and hospital number and A, are multiple, irregular segments of light mejia cartilage, bone, and soft tissue aggregating to 1.5 x 1.0 x 0.7 cm. The specimen is submitted entirely in one cassette following decalcification. LMP F: Received fresh, labeled with the patient's name and hospital number and B-right sinus contents, are multiple, irregular segments of pink-mejia cartilage, bone, and soft tissue aggregating to 2.7 x 1.8 x 0.7 cm. The specimen is submitted in toto in one cassette following light decalcification. LMP G: Received fresh, labeled with the patient's name and hospital number and C, are multiple, irr egular segments of light mejia cartilage and bone aggregating to 3.0 x 2.2 x 0.8 cm. The specimen is submitted entirely in 2 cassettes following decalcification. LMP H: Received fresh, labeled with the p atient's name and hospital number and D-L sinus contents, are multiple, irregular segments of pink-mejia cartilage, bone, and soft tissue aggregating to 3.0 x 2.0 x 1.0 cm. The specimen is submitted ent irely in 2 cassettes following decalcification. LMP I: Received in formalin, labeled with the patient's name and hospital number and A, are multiple, irregular segments of soft tissue aggregating to 1.2 x 0.4 x 0.1 cm.The specimen is entirely submitted in one cassette. IAD J: Received in formalin, labeled with the patient's name and hospital number and B, are multiple, irregular segments of mejia -pink soft tissue, possible cartilage aggregating to 3.5 x 2.4 x 2.2 cm. The specimen is submitted entirely in 5 cassettes. IAD lmp/11/07/2017 Diagnoses/Problems Chronic maxillary sinusitis (473.0) (J32.0) Benign neoplasm of ethmoidal sinus (212.0) (D14.0) Decreased sense of smell (781.1) (R43.8) Chronic ethmoidal sinusitis (473.2) (J32.2) Orders Start: Cannon Nasal [place] 0.65 % Nasal Solution; 2-4 SPRAYS EACH NOSTRIL TWO-THREE TIMES A DAY AND NEEDED Rx By: Eduardo Almeida; Dispense: 0 Days ; #:1 X 45 ML Bottle; Refill: 5;For: Chronic maxillary sinusitis; ZORA = N; Verified Transmission to [id number] Education Material Provided for Patient; Status:Complete; Done: [id number] Ordered; For:Chronic maxillary sinusitis; Ordered By:Eduardo Almeida; Provider Impressions 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 Chronic sinusitis s/p bilateral sinus surgery 11/06/17 3. Nasal airway obstruction s/p septoplasty and turbinate reductions 11/06/17 4. Rhinorrhea 5. Facial pressure 6. Decreased sense of smell 7. COPD on supplemental oxygen Discussion: Shade appeared well on examination today. His final margins were clear and his nasal breathing was very good following stent removal today. I recommended he initiate saline rinses along wit h saline spray routinely and follow-up in one week. He was amenable to this plan and all questions were answered. Patient Discussion/Summary Please followup with me in 1 week for reevaluation or sooner with any questions or concerns. Please feel free to contact my office by calling [phone] with any questions. End of Encounter Meds Albuterol Sulfate (2.5 MG/3ML) 0.083% Inhalation Nebulization Solution; Therapy: (Recorded:26Jul2017) to Recorded AmLODIPine Besylate 10 MG Oral Tablet; Therapy: (Recorded:26Jul2017) to Recorded Aspirin Childrens 81 MG Oral Tablet Chewable; Therapy: (Recorded:26Jul2017) to Recorded Aspirin EC 81 MG Oral Tablet Delayed Release; Therapy: (Recorded:26Jul2017) to Recorded Atorvastatin Calcium 40 MG Oral Tablet; Therapy: (Recorded:26Jul2017) to Recorded BD TB Syringe 27G X 1/2 1 ML Miscellaneous; Therapy: 03Jul2017 to Recorded Clopidogrel Bisulfate 75 MG Oral Tablet; Therapy: (Recorded:26Jul2017) to Recorded Clotrimazole 1 % External Cream; Therapy: 03Oct2017 to Recorded DOK 100 MG Oral Capsule; TAKE 1 CAPSULE BY MOUTH 2 TIMES DAILY WHILE TAKING OXYCODONE; Therapy: 07Nov2017 to Recorded Doxycycline Hyclate 100 MG Oral Tablet; TAKE 1 TABLET BY MOUTH 2 TIMES DAILY UNTIL FOLLOW UP APPOINTMENT; Therapy: 07Nov2017 to Recorded Fluticasone Propionate 50 MCG/ACT Nasal Suspension; Therapy: (Recorded:26Jul2017) to Recorded FreeStyle Lite Test In Vitro Strip; Therapy: 09May2017 to Recorded Furosemide 40 MG Oral Tablet; Therapy: (Recorded:26Jul2017) to Recorded Gemfibrozil 600 MG Oral Tablet; Therapy: (Recorded:26Jul2017) to Recorded Glimepiride 4 MG Oral Tablet; Therapy: (Recorded:26Jul2017) to Recorded HumuLIN R U-500 (CONCENTRATED) 500 UNIT/ML Subcutaneous Solution; Therapy: 17Jul2017 to Recorded Insulin Purified Lente (Pork) 100 U/ML SUSP; Therapy: (Recorded:26Jul2017) to Recorded Klor-Con M20 20 MEQ Oral Tablet Extended Release; Therapy: [id number] to Recorded LORazepam 1 MG Oral Tablet; Therapy: (Recorded:26Jul2017) to Recorded MetFORMIN HCl - 1000 MG Oral Tablet; Therapy: (Recorded:27Apr2017) to Recorded MetOLazone 2.5 MG Oral Tablet; Therapy: (Recorded:26Jul2017) to Recorded Metoprolol Succinate ER 100 MG Oral Tablet Extended Release 24 Hour; Therapy: (Recorded:26Jul2017) to Recorded Metoprolol Succinate ER 200 MG Oral Tablet Extended Release 24 Hour; Therapy: [id number] to Recorded Multi Vitamin/Minerals Oral Tablet; Therapy: (Recorded:26Jul2017) to Recorded Naproxen Sodium CAPS; Therapy: (Recorded:26Jul2017) to Recorded Nitroglycerin 0.4 MG Sublingual Tablet Sublingual; Therapy: (Recorded:26Jul2017) to Recorded Cannon Nasal [place] 0.65 % Nasal Solution; 2-4 SPRAYS EACH NOSTRIL TWO-THREE TIMES A DAY AND NEEDED; Therapy: 14Nov2017 to (Last Rx:[id number]) Requested for: 14Nov2017 Ordered OneTouch Delica Lancets 33G Miscellaneous; Therapy: 19Sep2017 to Recorded OxyCODONE HCl - 5 MG Oral Tablet; take 1 tablet by mouth every 6 hours if needed for pain; Therapy: [id number] to Recorded PARoxetine HCl - 40 MG Oral Tablet; Therapy: (Recorded:26Jul2017) to Recorded Potassium Chloride 40 MEQ/15ML (20%) Oral Solution; Therapy: (Recorded:26Jul2017) to Recorded Ranexa 500 MG Oral Tablet Extended Release 12 Hour; Therapy: (Recorded:26Jul2017) to Recorded TiZANidine HCl - 4 MG Oral Tablet; Therapy: 02Aug2017 to Recorded TraMADol HCl - 50 MG Oral Tablet; Therapy: 12Jul2017 to Recorded Ventolin HFA 108 (90 Base) MCG/ACT Inhalation Aerosol Solution; Therapy: 28Sep2017 to Recorded Signatures Electronically signed by : Eduardo Almeida MD; Nov 14 2017 7:28PM EST (Author) DISCHARGE PLANNING Observed: 11/07/2017 Status: UNK Source: [facility] 10:50 AM [facility]OSPITALS REPOSITORY Patient Learning: ? Factors that Impact Ability to Learnacuteness of illness(1) Other Factors: ? Functional Screen: In the recent/past 2-4 weeks, patient or family have noticedno issues that require a rehabilitation consult at this time(2) Discharge Planning: Discharge Plannin11/07/17 - patient discharged home accompanied by cousin. All discharge instructions and prescriptions gone over with patient. All questions answered. Patient has no home-going needs. Ariana Cobb RN Final Disposition/Discharge: Disposition/Discharge Information: Discharge/Transfer Information: ? Discharge/Transfer Date/[id number] 10:52 ? Discharged Accompanied Byfamily member ? Discharge Modewheelchair ? Transportation Methodprivate car ? Valuables/Medications/Belongings Returnedyes ? Security Envelope Returnedyes ? Belongings Commentpatient encouraged to check for all belongings ? Final DispositionHome Electronic Signatures: Ariana Hernandes (RN) (Signed 07-Nov-2017 10:53) Authored: Discharge Planning Note, Final Disposition/Discharge Last Updated: 07-Nov-2017 10:53 by Ariana Hernandes (RN) References: 1. Data Referenced From 5. Education 11/06/2017 8:11 PM 2. Data Referenced From Admission Risk Screen - Adult 11/06/2017 8:11 PM GLUCOSE-POCT Collected: 11/07/2017 Status: F Source: [place] 7:55 AM [facility] REPOSITORY TYPE CODE TESTS RESULT OUT OF RANGE REFERENCE UNITS LAB GLUP(LOINC) 74 - 99 mg/dL High 265 GLUCOSE-POCT Performed By: #### GLUPO #### [facility] [address] [place] [address] DISCHARGE SUMMARY Observed: 11/07/2017 Status: COMPLETED Source: [place] 6:21 AM HOSPITALS REPOSITORY Send Summary: Discharge Summary Providers: Provider RoleProvider Name ? ReferringEloy Beth ? PrimaryEloy Beth Note Recipients: Eloy Beth MD - [phone] [] Discharge: Summary: Admission Date: .06-Nov-2017 08:39:00 Discharge Date: 07-Nov-2017 Attending Physician at Discharge: Eduardo Almeida Admission Reason: observation after sinus surgery Final Discharge Diagnoses: Chronic rhinosinusitis, Mass of paranasal sinus, Procedures: Date: 06-Nov-2017 16:21:00 Procedure Name: 1. Endoscopic endonasal resection of right sino-nasal glomagiopericytoma 2. Bilateral endoscopic sinus surgery with image guidance 3. Endoscopic septoplasty 4. Bilateral submucous inferior turbinate reduction Condition at Discharge: Satisfactory Disposition at Discharge: .Home Hospital Course: 61 y/o M with a R sinonasal glomangiopericytoma now s/p OR for removal of tumor with partial septectomy, bilateral FESS, septoplasty and inferior turbinate reduction. Patient was admitted overnight for observation. He did will and was discharged the following day with pain well controlled and tolerating her regular diet. He will follow up with Dr. Almeida at the standard one week interval. Discharge Information: and Continuing Care: Discharge Instructions: Activity: activity as tolerated. May shower.. No pushing, pulling, or lifting objects greater than 10 pounds. Nutrition/Diet: resume normal diet Additional Orders: Additional Instructions: -Please use nasal saline spray frequently, at least 5 times per day in each nostril -You can start using your BiPAP machine on 11/07 -You can restart your aspirin and plavix on Saturday 11/11 You may have oozing from your nose, this is expected. If you are having rapid bleeding from your nose please call the office if its during business hours. If after 5pm or a weekend, please call [phone] and ask for the ENT resident telephone appointment clerk. In addition, if you have clear drainage from your nose with a metallic taste in your mouth and a worsening headache, please give us a call. Follow Up Appointments: Follow-Up Appointment 01: Physician/Dept/Service: Dr. Eduardo Almeida Reason for Referral: post op visit in 1 week Discharge Medications: Home Medication amLODIPine 10 mg oral tablet - 1 tab(s) orally once a day aspirin 81 mg oral tablet - 1 tab(s) orally once a day Plavix 75 mg oral tablet - 1 tab(s) orally once a day metFORMIN 1000 mg oral tablet - 1 tab(s) orally 2 times a day glimepiride 4 mg oral tablet - 1 tab(s) orally 2 times a day atorvastatin 80 mg oral tablet - orally once a day (at bedtime) multivitamin - orally once a day clotrimazole 1% topical cream (obsolete) - Apply topically to affected area once a day furosemide 20 mg oral tablet - orally 2 times a day metOLazone 2.5 mg oral tablet - orally 2 times a week Metoprolol Succinate ER 100 mg oral tablet, extended release - orally 2 times a day potassium chloride 20 mEq oral tablet, extended release - 2 tab(s) orally 3 times a day sodium chloride 0.65% nasal spray - 5 spray(s) intranasally (both nostrils) 8 times a day doxycycline hyclate 100 mg oral tablet - 1 tab(s) orally 2 times a day until follow up appointment oxyCODONE 5 mg oral tablet - 1 tab(s) orally every 6 hours as needed for pain G89.18 post operative pain Colace 100 mg oral capsule - 1 cap(s) orally 2 times a day while taking oxycodone PRN Medication nitroglycerin 0.4 mg sublingual tablet - 1 tab(s) sublingual every 5 minutes, As Needed Lab Results - Pending: Surgical Pathology Drawn at 06-Nov-2017 00:00:00 Radiology Results - Pending: None Signature/Cosignature/Attestation: Attending AttestationI reviewed the resident/fellow?s documentation and discussed the patient with the resident/fellow. I agree with the resident/fellow?s medical decision making as documented in the resident?s note. Electronic Signatures: Sarah Mccormack (Resident)) (Signed 07-Nov-2017 06:21) Authored: Send Summary, Summary Content, Ongoing Care, Signature/Cosignature/Attestation Eduardo Almeida) (Signed 07-Nov-2017 07:25) Authored: Send Summary, Summary Content, Ongoing Care, Signature/Cosignature/Attestation Co-Signer: Send Summary, Summary Content, Ongoing Care, Signature/Cosignature/Attestation Last Updated: 07-Nov-2017 07:25 by Eduardo Almeida) DAILY PROGRESS Observed: 11/07/2017 Status: COMPLETED Source: [facility] 6:14 AM HOSPITALS REPOSITORY Service: ENT Subjective Data: SHADE TEIXEIRA is a 61 year old Male who is Hospital Day # 2 and POD #1 for resection of right sinus mass;endoscopic sinus surgery, bilateral;septoplasty. Additional Information: S: Minimal oozing from nose overnight. Patient did not sleep well due to bed. He did not want to take tramadol as it gives him headaches. 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 -Tolerating diet -Pain controlled with oxycodone -Minimal bleeding -Home meds -Ok for discharge this morning, will follow up in [address] [place] [id number] Objective Data: Objective Information: T PRBPSpO2 [id number]/6893% Date/Time11/07 4: 4: 4: 4: 4:04 Range(36.5C - 37.5C ) (67 - 80 ) (18 - 20 ) (123 - 142 )/ (67 - 82 ) (93% - 96% ) Highest temp of 37.5 C was recorded at 11/07 0:20 Pain with Activity reported at 11/06 22:31: 3 Pain at Rest reported at 11/06 22:31: 3 SCIP Measures: Urinary Catheter Removed Post-Op Day 2: N/A, patient does not have urinary catheter Patient on Beta Robinson Prior to Admission: yes Restarted on Beta Robinson by Post-Op Day 2: yes Prophylactic antibiotics scheduled to be discontinued with 24 hr of anesthesia end time (48 hr for cardiac surgery): N/A, patient not on prophylactic antibiotics Signature/Cosignature/Attestation: Attending AttestationI reviewed the resident/fellow?s documentation and discussed the patient with the resident/fellow. I agree with the resident/fellow?s medical decision making as documented in the resident?s note. Electronic Signatures: Sarah Mccormack (Resident)) (Signed 07-Nov-2017 06:17) Authored: Service, Subjective Data, Objective Data, SCIP Measures, Signature/Cosignature/Attestation Eduardo Almeida) (Signed 07-Nov-2017 07:24) Authored: Signature/Cosignature/Attestation Co-Signer: Service, Subjective Data, Objective Data, SCIP Measures, Signature/Cosignature/Attestation Last Updated: 07-Nov-2017 07:24 by Eduardo Almeida) GLUCOSE-POCT Collected: 11/06/2017 Status: F Source: [place] 9:08 PM HOSPITALS REPOSITORY TYPE CODE TESTS RESULT OUT OF RANGE REFERENCE UNITS LAB GLUP(LOINC) 74 - 99 mg/dL High 245 GLUCOSE-POCT Performed By: #### GLUPO #### [facility] [id number] [place] [address] PATIENT PROFILE - Observed: 11/06/2017 Status: UNK Source: [facility] AD[facility] V2 8:15 PM HOSPITALS REPOSITORY Profile: Initial Info: How to be AddressedDenny(1) Spoken Language PreferredEnglish (1) Are you currently using the Personal Electronic Health Record or MYUHCAREno (1) Stated Reason for Admissioncame in for surgery of tumor in the sinuses. [facility] with [facility] Medications Brought to Hospitalno General Health: Weight in kg126.9 kilogram(s) Weight in lpr787.7 pound(s) Height in feet5 feet Height in vtyakz03 inch(es) Height in cm177.8 centimeter(s) BMI (kg/m2)40.141 square meter Weight Methodactual (measured) Scale Typestanding Height Methodstated Blood Avoidance/Restrictionsnone(1) Previous Transfusion Reactionno(1) [facility] Based Care: How would you like to participate in your care?completely What is the number one concern for you during this hospitalization?nose bleeds What is the most important thing we can do to support you during this hospitalization?manage my condition and stop my nose from bleeding Is there anything we need to know to best care for you?nothing Substance: Current or Former Substance Use never: Cigarette/Tobacco, e-Cigarette/Vaping, Alcohol, Street Drugs Health Mgmt: Symptoms/Conditions Managed at Homerespiratory Respiratory Managementnot managed Relationship/Environ: Primary Source of Support/Comfortno one Lives Withalone Living Arrangementsassisted living facility Resource/Environmental Concernsnone Anticipated Transition [facility] care [facility] Services Anticipated at Transitioncase evs manager Significant IndicatorsComplete Information Review: ? Allergies, Home Meds and Significant Events have been Reviewed and Verified with Patient/Familyno ALLERGY, INTOLERANCE, ADVERSE EVENT: Allergies: ? No Known Allergies: Active Electronic Signatures: Leonel Hensley (CLARITA) (Signed 06-Nov-2017 20:21) Authored: Profile, Additional Information Last Updated: 06-Nov-2017 20:21 by Leonel Hensley (CLARITA) References: 1. Data Referenced From Patient Profile - Preop v2 11/06/2017 10:43 AM ADMISSION RISK SCREEN Observed: 11/06/2017 Status: UNK Source: [facility] - [facility]ULT 8:11 PM HOSPITALS REPOSITORY Allergies: Allergies: ? No Known Allergies: Patient Verification: ? New W ID Band Applied in my Departmentyes ? Patient Identity Verified Bypatient ? ID Band FULL Name, include Middle, spelling matches patient's ID used for verificationyes ? ID Band Matches Patient ID used for Verficationyes ? ID Band MRN Matches EMR MRNyes Advance Directive: ? Advance Directive Medicalunable to answer ? Advance Directive Mental Healthnot applicable Falls Screen: Type of Assessmentadmission Moderate Risk Factorspatient care equipment (scds, iv?s, chest tubes, sosa, etc) High Risk Factorssymptoms due to meds (sedatives, hypnotics, new diuretics and new laxatives) Risk for Injury Associated with Fallrisk of surgical complications post surgery (recent abdominal, thoracic surgery, lower limb amputation) Fall Risk Conclusionhigh falls risk with risk for associated injury Cecil Safety InterventionsWDL *orient to call system *instruct to call for assistance before getting out of bed *non-slip footwear when patient is out of bed *call arauz in reach *personal items and telephone in reach *physically safe environment (no spills or clutter) *bed in lowest position with wheels locked *appropriate side rails in place *room/bathroom lighting operational, light cord in reach *appropriate signage on door Family Violence Screen: ? Are you or have you been threatened or abused physically, emotionally, or sexually by anyone?no ? Do you feel UNSAFE going back to the place where you are living?no ? Clinical assessment: Are there any apparent signs of injuries/behaviors that could be related to abuse/neglectno ? Social Service Consult for abuse/neglect needed this visit?no Functional screen: ? Functional Screen: In the recent/past 2-4 weeks, patient or family have noticedno issues that require a rehabilitation consult at this time Learning Assessment (Patient): ? Patient is Able to be Assessed for Learningyes ? Factors Influencing Readiness to Learnacuteness of illness ? Factors that Impact Ability to Learnacuteness of illness ? Devices/Methods Used to Communicatenone ? Learning Preferencesindividual instruction ? Cultural Considerationsnone ? Developmental Considerationsnone ? Jainism Considerationsnone Learning Assessment (Other Learner): ? Other learner availableno Suicide/Depression Screen: ? During the past month, have you often been bothered by feeling down, depressed or hopeless?no (1) ? During the past month, have you often had little interest or pleasure in doing things?no (1) ? Have you had any thoughts of harming yourself?no (1) ? Have you had any thoughts of harming anyone else?no (1) Adult Nutrition Screen: ? Have you recently lost weight without tryingyes; 24-33 lb ? Have you been eating poorly because of a decreased appetiteno ? MST Score3 ? RiskMST = 0 or 1 Not at risk. Eating well with little or no weight loss ? Nutrition Consult needed this visit?no ? Can Patient Participate in Room Service?yes ? Patient requires Paper Dishes/Plastic Utensilsno Pain Screen: ? Pain ScaleCognitively Impaired Pain Assessment Tool ? Pain Scale Educationteaching provided (1) ? Current Pain Level4 = Moderate ? Acceptable Pain Level4 = Moderate ? Expression of Pain (nonverbal)guarding ? Chronic Painno (1) Spiritual Screen: ? Are there any cultural, spiritual, adventism practices/values/needs that are important for us to know?no CAGE: Is this an injured patient at a Trauma Center ([facility] [place] [facility]): no Vaccinations: Vaccination - Influenza Vaccination Screen: ? Is it flu season? (between and )No Vaccination - Pneumonia Vaccination Screen: ? Patient has received a previous pneumonia vaccine:yes Teofilo: Skin - Teofilo Scale: ? Teofilo: Sensory Perception (response to environment)(4) no impairment ? Teofilo: Moisture (degree skin exposed to moisture)(3) occasionally moist ? Teofilo: Activity (ability to walk)(3) walks occasionally ? Teofilo: Mobility (amount/control of body movement)(3) slightly limited ? Teofilo: Nutrition (quality of food intake)(2) probably inadequate ? Teofilo: Friction and Shear(3) no apparent problem ? Teofilo: Score18 ? Skin Intervention Orders (Nursing orders will be generated)elevate heels, up in chair < 1 hr intervals, turn side to side every 2 hrs, assess for therapeutic equipment, assess pressure points, hygiene care, toilet/ADL every 2 hrs awake, toilet/ADL every 4 hrs asleep, educate prevent/treat pressure ulcer Significant Indicatiors: Significant Indicators: Complete Pressure Injury: Pressure Injury Present on Admissionno Electronic Signatures: Leonel Hensley (RN) (Signed 06-Nov-2017 20:15) Authored: Admission Risk Screens, Vaccinations, Teofilo, Pressure Injury Last Updated: 06-Nov-2017 20:15 by Leonel Hensley (CLARITA) References: 1. Data Referenced From Patient Profile - Preop v2 11/06/2017 10:43 AM GLUCOSE-POCT Collected: 11/06/2017 Status: F Source: [place] 6:29 PM HOSPITALS REPOSITORY TYPE CODE TESTS RESULT OUT OF RANGE REFERENCE UNITS LAB GLUP(LOINC) 74 - 99 mg/dL High 221 GLUCOSE-POCT Performed By: #### GLUPO #### [facility] [address] [place] [address] GLUCOSE-POCT Collected: 11/06/2017 Status: F Source: [place] 5:58 PM HOSPITALS REPOSITORY TYPE CODE TESTS RESULT OUT OF RANGE REFERENCE UNITS LAB GLUP(LOINC) 74 - 99 mg/dL High 233 GLUCOSE-POCT Performed By: #### GLUPO #### [facility] [address] [place] [address] GLUCOSE-POCT Collected: 11/06/2017 Status: F Source: [place] 5:20 PM HOSPITALS REPOSITORY TYPE CODE TESTS RESULT OUT OF RANGE REFERENCE UNITS LAB GLUP(LOINC) 74 - 99 mg/dL High 247 GLUCOSE-POCT Performed By: #### GLUPO #### [facility] [address] [place] [address] DISCHARGE PROFILE2 Observed: 11/06/2017 Status: UNK Source: [place] 4:47 PM HOSPITALS REPOSITORY Discharge Orders: Anticipated Discharge Date: ? Anticipated Discharge [id number] ? Anticipated Discharge Time09:00 Problem List: Medical History: ? Mass of paranasal sinus: Catalog Name: Other specified disorders of nose and nasal sinuses ? Chronic rhinosinusitis: Catalog Name: Chronic sinusitis, unspecified Prelim Disch Dx: ? Nasal mass: Catalog Name: Localized swelling, mass and lump, head Significant Events: Surgical Procedure: Clinical Events This Visit, 06-Nov-2017, resection of right sinus mass;endoscopic sinus surgery, bilateral;septoplasty Activity: activity as tolerated. May shower. No pushing, pulling, or lifting objects greater than 10 pounds. Diet: ? Dietresume normal diet Additional Orders: ? Additional Instructions -Please use nasal saline spray frequently, at least 5 times per day in each nostril -You can start using your BiPAP machine on 11/07 -You can restart your aspirin and plavix on Saturday 11/11 You may have oozing from your nose, this is expected. If you are having rapid bleeding from your nose please call the office if its during business hours. If after 5pm or a weekend, please call [phone] and ask for the ENT resident telephone appointment clerk. In addition, if you have clear drainage from your nose with a metallic taste in your mouth and a worsening headache, please give us a call. Hospital Course (Home Care/Gold Form): Hospital Course: ? 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 Patient was admitted overnight for observation. He did will and was discharged the following day with pain well controlled and tolerating her regular diet. He will follow up with Dr. Almeida at the standard one week interval. Provider FINAL REVIEW of Orders: Final Review: ? Final Review of Medication Reconciliation and Orders Completedby Physician ? Reviewing ProviderRachel MD Easton (Resident) at 06-Nov-2017 16:54:19 Appointments: Follow-Up Appointment 01: ? Physician/Dept/ServiceDr. Eduardo Almeida ? Reason for Referralpost op visit in 1 week ? Phone [phone] ? CommentsPlease call to confirm date and time of appointment. Electronic Signatures: Sarah Mccormack (Resident)) (Signed 06-Nov-2017 16:54) Authored: Discharge Orders, Hospital Course (Home Care/Gold Form), Provider FINAL REVIEW of Orders, Appointments, Gold Form - Stereotyper Helper Summary Last Updated: 06-Nov-2017 16:54 by Sarah Mccormack ( (Resident)) GLUCOSE-POCT Collected: 11/06/2017 Status: F Source: [place] 4:29 PM HOSPITALS REPOSITORY TYPE CODE TESTS RESULT OUT OF RANGE REFERENCE UNITS LAB GLUP(LOINC) 74 - 99 mg/dL High 291 GLUCOSE-POCT Performed By: #### GLUPO #### [facility] [address] [place] [address] POST OPERATIVE NOTE - Observed: 11/06/2017 Status: COMPLETED Source: [place] 4:21 PM HOSPITALS REPOSITORY Post Operative Note: PreOp Diagnosis: Right sinus glomangiopericytoma, chronic sinusitis, septal deviation Post-Procedure Diagnosis: Same Procedure: 1. Endoscopic endonasal resection of right sino-nasal glomagiopericytoma 2. Bilateral endoscopic sinus surgery with image guidance 3. Endoscopic septoplasty 4. Bilateral submucous inferior turbinate reduction Surgeon: Juan Pablo Resident/Fellow/Other Drapery Supervisor: Easton Anesthesia: GETA Estimated Blood Loss (mL): 250 Specimen: yes Complications: None Findings: Right sinonasal mass grossly resected Patient Returned To/Condition: PACU/stable Additional Details: Right propel contours then placed Bilateral Mitchell splint placed at the conclusion of the procedure Signature/Cosignature/Attestation: Attending AttestationI was present for hernandez portions of the procedure and the procedure lasted longer than 5 minutes. Electronic Signatures: Sarah Mccormack (Resident)) (Signed 06-Nov-2017 16:55) Authored: Post Operative Note, Signature/Cosignature/Attestation Eduardo Almeida) (Signed 06-Nov-2017 17:30) Authored: Post Operative Note, Signature/Cosignature/Attestation Co-Signer: Post Operative Note, Signature/Cosignature/Attestation Last Updated: 06-Nov-2017 17:30 by Eduardo Almeida) GLUCOSE-POCT Collected: 11/06/2017 Status: F Source: [place] 4:05 PM HOSPITALS REPOSITORY TYPE CODE TESTS RESULT OUT OF RANGE REFERENCE UNITS LAB GLUP(LOINC) 74 - 99 mg/dL High 283 GLUCOSE-POCT Performed By: #### GLUPO #### [facility] [address] [place] [address] GLUCOSE-POCT Collected: 11/06/2017 Status: F Source: [place] 2:38 PM HOSPITALS REPOSITORY TYPE CODE TESTS RESULT OUT OF RANGE REFERENCE UNITS LAB GLUP(LOINC) 74 - 99 mg/dL High 283 GLUCOSE-POCT Performed By: #### GLUPO #### [facility] [address] [place] [address] TYPE + SCREEN Collected: 11/06/2017 Status: CANCELLED Source: [place] 11:42 AM HOSPITALS REPOSITORY Order Comment: TEST TYPE + SCREEN WAS CANCELLED, 11/10/2017 03:39 No specimen received. TYPE CODE TESTS RESULT OUT OF REFERENCE UNITS RANGE LAB ABORH(LOIN C) ABO TYPE Canceled LAB RH(LOINC) RH TYPE Canceled LAB ABSC(LOINC ) ANTIBODY Canceled SCREEN Performed By: #### T+S #### [facility] [address] [place] [address] TYPE + SCREEN Collected: 11/06/2017 Status: CANCELLED Source: [place] 10:50 AM HOSPITALS REPOSITORY Order Comment: TEST TYPE + SCREEN WAS CANCELLED, 11/06/2017 11:41 NUCLEAR MEDICINE MEDICAL DIRECTOR ERROR. 11/06/2017 11:41. TYPE CODE TESTS RESULT OUT OF REFERENCE UNITS RANGE LAB ABORH(LOIN C) ABO TYPE Canceled LAB RH(LOINC) RH TYPE Canceled LAB ABSC(LOINC ) ANTIBODY Canceled SCREEN Performed By: #### T+S #### [facility] [address] [place] [address] PATIENT PROFILE - Observed: 11/06/2017 Status: UNK Source: [place] PREOP V2 10:43 AM HOSPITALS REPOSITORY Profile: Initial Info: How to be AddressedDenny Spoken Language PreferredEnglish Source of Informationpatient Are you currently using the Personal Electronic Health Record or PrestoBoxno Are you interested in learning more about Share[employer]Swarm for the management of your healthnot at this time Stated Reason for Admissionsinus surgery Primary Contact Name and NumberLeticiada sister [phone] Limitations on Visitors/Phone Callsnone Patient Belongingsnone Medications Brought to Hospitalno General Health: Weight in kg126.9 kilogram(s) Weight in wxf385.7 pound(s) Weight Methodactual (measured) Scale Typestanding Height in cm177.8 centimeter(s) Height in feet5 feet Height in ausvxb44 inch(es) Height Methodstated BMI (kg/m2)40.141 square meter Patient or Family Member Reaction to Anesthesiano previous reaction Equipment Currently Used at Homebath bench Blood Avoidance/Restrictionsnone Previous Transfusion Reactionno Health Mgmt: Symptoms/Conditions Managed at Homecardiovascular; respiratory; cancer Cancer Symptoms/Conditionslung Cardiovascular Symptoms/Conditionshypertension; dysrhythmia Respiratory Symptoms/ConditionsCOPD Barriers to Managing Healthnone Relationship/Environ: Lives Withalone(1) Living Arrangementsapartment(1) Resource/Environmental Concernsnone Anticipated Transition [facility] Services Anticipated at Transitionnone Substance: Current or Former Substance Use never: Street Drugs YES: Cigarette/Tobacco, Alcohol Substance Useunable to assess Tobacco Cessation Education (provide if tobacco use within the last 12 mos)not applicable Alcohol Use Statuspast alcohol Alcohol Cgaoau06 or more drinks Alcohol Typeliquor Method of Quittingquit on own Risk Screens: Advance Directive Medicalno Advance Directive Information Givenpatient/family declined Advance Directive Mental Healthnot applicable During the past month, have you often been bothered by feeling down, depressed or hopeless?no During the past month, have you often had little interest or pleasure in doing things?no Have you had any thoughts of harming yourself?no Have you had any thoughts of harming anyone else?no Patient is Able to be Assessed for Learningyes Factors Influencing Readiness to Learnacuteness of illness Factors that Impact Ability to Learnnone Devices/Methods Used to Communicatenone Learning Preferencesskill demonstration Cultural Considerationsnone Developmental Considerationsnone Jainism Considerationsnone Other learner availableno Falls RiskPatient location auto qualifies him/her for HIGH RISK. Are there any cultural, spiritual, adventism practices/values/needs that are important for us to know?no Do you want a visit/item from Pastoral Care?no Would you like your Manager Inventory Management/Stitcher Set Up Operator Automatic notified?no Pain Scalenumerical 0-10 Pain Scale Educationteaching provided Current Pain Level0 = None Acceptable Pain Level4 = Moderate Chronic Painno Information Review: ? Allergies, Home Meds and Significant Events have been Reviewed and Verified with Patient/Familyyes Allergy, Intolerance, Adverse Event: Allergies: ? No Known Allergies: Active Significant Events: 06-Nov-2017 ? left knee surgery: Past Surgical History, Active 06-Nov-2017 ? nasal endoscopy with biopsy: Past Surgical History, Active 06-Nov-2017 ? tonsillectomy: Past Surgical History, Active 06-Nov-2017 ? PTCA with stent: Past Surgical History, Active 15-Jun-2017 ? abdominal surgery: Past Surgical History, Active 15-Jun-2017 ? fissure repair: Past Surgical History, Active 15-Jun-2017 ? bilat hip replacements: Past Surgical History, Active 15-Jun-2017 ? Pe.>10 yrs ago: Past Medical History, Active 15-Jun-2017 ? previous smoker: Past Medical History, Active 15-Jun-2017 ? hx etoh: Past Medical History, Active 15-Jun-2017 ? anxiety: Past Medical History, Active 15-Jun-2017 ? chf: Past Medical History, Active 15-Jun-2017 ? copd: Past Medical History, Active 15-Jun-2017 ? mi with stent: Past Medical History, Active 15-Jun-2017 ? anemia: Past Medical History, Active 15-Jun-2017 ? gerd: Past Medical History, Active 15-Jun-2017 ? favian wears cpap at home: Past Medical History, Active 15-Jun-2017 ? afib: Past Medical History, Active 15-Jun-2017 ? dm: Past Medical History, Active Electronic Signatures: Lissett Franklin (CLARITA) (Signed 06-Nov-2017 10:44) Authored: Profile, Additional Information Last Updated: 06-Nov-2017 10:44 by Lissett Franklin (CLARITA) References: 1. Data Referenced From Patient Profile - Preop v2 08/07/2017 11:42 AM PREOP CHECKLIST Observed: 11/06/2017 Status: UNK Source: [place] 10:41 AM [facility]ITALS REPOSITORY Preop Checklist: Preop Checklist: ? Arrival [id number] ? Procedure Typeendoscopic resection of ethmoid cavity mass ? NPO [id number] 22:00 ? ID Band Onyes ? Allergy Bandno known allergies ? Consent Signedyes ? H&P Completeyes ? Anesthesia Assessment Completedyes ? EKG Performedsee results tab ? Chest X-Ray Performedsee results tab ? Chlorhexadine Bath Givennot applicable ? Soap and water bath with hair shampoo the night before surgerynot applicable ? SCD's Appliedsent to OR ? RASHEEDA Hose Appliedyes ? Denturesnot applicable ? Prostheticsnot applicable ? Hearing Aidsnot applicable ? Valuables Securednot applicable ? Glasses / Contactsnot applicable ? Bowel Prepno Cardiovascular Assessment: ? Apicalregular ? Radial Pulsespalpable ? Pedal Pulsespalpable ? Extremitieswarm Respiratory Assessment: ? Respirationsregular unlabored ? Air Exchangeequal, good ? Breath Soundsclear Neurological Assessment: ? Level of Consciousnessoriented, alert ? Mobilitylimitations difficulty ambulating, shortness of breath ? Able to Express Selfyes ? Age Appropriateyes ? Emotional Statusanxious Preop Education: ? Surgical Site Infection Preventionyes ? Pain Scales and Managementyes Language / Communication: ? Language / CommunicationEnglish Electronic Signatures: Lissett Franklin (RN) (Signed 06-Nov-2017 10:42) Authored: Preop Checklist Last Updated: 06-Nov-2017 10:42 by Lissett Franklin (RN) GLUCOSE-POCT Collected: 11/06/2017 Status: F Source: [place] 10:33 AM HOSPITALS REPOSITORY TYPE CODE TESTS RESULT OUT OF RANGE REFERENCE UNITS LAB GLUP(LOINC) 74 - 99 mg/dL High 308 GLUCOSE-POCT Performed By: #### GLUPO #### [facility] [address] [facility] 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) discovered by epistaxis, right nasal airway obstruction and anterior nasal drainage PMH: HTN, HLD, DM, FAVIAN, COPD, h/o DVT on apixaban and ASA 81/plavix for stent Fam Hx: negative for bleeding disorders Social Hx: Reviewed in EMR Allergies: NKDA ROS: negative except as above in HPI Physical Exam: Gen- NAD Resp- nonlabored on RA, symmetric chest rise Head/Face- NCAT, no masses or lesions Eyes- EOMI, clear sclera Ears- normal external ears, no gross lesions of EACs Nose- anterior nares clear, no bleeding or drainage Mouth- lips without lesions, no excessive drooling Neuro- alert and interactive Medications, imaging and pertinent labs reviewed in EMR A/P Proceed with planned surgery Allergies: Allergies: ? No Known Allergies: Home Medication Review: Home Medications Reviewed: no Impression/Procedure: Impression and Planned Procedure: endoscopic sinus surgery, septoplasty, inferior turbinate reduction Physical Exam: Respiratory/Thorax: non labored respirations Cardiovascular: no cyanosis Signatures/Attestation/Certification: Attending AttestationI saw and evaluated the patient. I personally obtained the hernandez and critical portions of the history and physical exam or was physically present for hernandez and critical portions performed by the resident/fellow. I reviewed the resident/fellow?s documentation and discussed the patient with the resident/fellow. I agree with the resident/fellow?s medical decision making as documented in the resident?s note. I personally evaluated the patient (as noted in the above attestation) on 06-Nov-2017 Attending Provider ? Inpatient Certification StatementI certify this patient?s need for inpatient care based on the above documentation including; the order to admit as inpatient, the anticipated length of stay, diagnosis, problem list and plan of care, and discharge plan. Electronic Signatures: Sarah Mccormack (Resident)) (Signed 06-Nov-2017 07:38) Authored: History of Present Illness, Allergies, Home Medication Review, Impression/Procedure, Physical Exam, Signatures/Attestation/Certification Eduardo Almeida) (Signed 06-Nov-2017 17:29) Authored: Signatures/Attestation/Certification Co-Signer: History of Present Illness, Allergies, Home Medication Review, Impression/Procedure, Physical Exam, Signatures/Attestation/Certification Last Updated: 06-Nov-2017 17:29 by Eduardo Almeida) [facility] Observed: 11/06/2017 Status: F Source: [place] DEPARTMENT 12:00 AM HOSPITALS REPOSITORY Name SHADE TEIXEIRA Pathologist: Patricia Lenz MD, Ph.D. Date of Procedure: 11/06/2017 Date Received: 11/06/2017 Date Reported 11/10/2017 Submitting Physician: EDUARDO ALMEIDA MD Location: OR Other External # FINAL DIAGNOSIS A. RIGHT POSTERIOR INFERIOR SEPTUM: --RESPIRATORY MUCOSA WITH MILD CHRONIC INFLAMMATION --NO EVIDENCE OF TUMOR B. RIGHT ANTERIOR INFERIOR SEPTUM: --RESPIRATORY MUCOSA WITH MILD CHRONIC INFLAMMATION --NO EVIDENCE OF TUMOR C. RIGHT ANTERIOR SUPERIOR MIDDLE TURBINATE MARGIN: --RESPIRATORY MUCOSA WITH MILD CHRONIC INFLAMMATION --NO EVIDENCE OF TUMOR D. RIGHT POSTERIOR SUPERIOR SEPTAL MARGIN: --RESPIRATORY MUCOSA WITH MILD CHRONIC INFLAMMATION --NO EVIDENCE OF TUMOR E. RIGHT SUPERIOR TURBINATE: --BONE AND RESPIRATORY MUCOSA WITH MILD CHRONIC INFLAMMATION --NO EVIDENCE OF TUMOR F. RIGHT SINUS CONTENTS: --BONE AND RESPIRATORY MUCOSA WITH MILD CHRONIC INFLAMMATION --NO EVIDENCE OF TUMOR G. SEPTUM: --BONE AND CARTILAGE WITHOUT SIGNIFICANT PATHOLOGIC FINDINGS --NO EVIDENCE OF TUMOR H. LEFT SINUS CONTENTS: --BONE AND CARTILAGE WITHOUT SIGNIFICANT PATHOLOGIC FINDINGS --NO EVIDENCE OF TUMOR I. LEFT MAXILLARY SINUS CONTENTS: --RESPIRATORY MUCOSA WITH SUBMUCOSAL FIBROSIS AND CHOLESTEROL GRANULOMA. J. MICRODEBRIDER: --FRAGMENTS OF MESENCHYMAL NEOPLASM, CONSISTENT WITH SINONASAL GLOMANGIOPERICYTOMA. SEE NOTE Note: Part J contains multiple fragments of sinonasal mucosa and bone. There are scattered fragments of mesenchymal neoplasm, morphologically consistent with previously biopsied glomangiopericytoma. No evidence of necrosis or bone invasion is identified. See [id number]. Electronically Signed Out By Patricia Lenz MD, Ph.D./MAC By the signature on this report, the individual or group listed as making the Final Interpretation/Diagnosis certifies that they have reviewed this case. Intraoperative Consultation: A: RT POSTERIOR INFERIOR SEPTUM Frozen Section 1: Date Ordered: 11/06/2017 13:58 Date Received: 11/06/2017 13:58 Date Called: 11/06/2017 14:48 Intraoperative Diagnosis: A: Fibrovascular soft tissue with mucinous glands Intraoperative Consult Pathologist(s): MARY ELLEN WILLINGHAM M.D. (P) B: RT ANTERIOR INFERIOR SEPTUM Frozen Section 1: Date Ordered: 11/06/2017 13:58 Date Received: 11/06/2017 13:58 Date Called: 11/06/2017 14:48 Intraoperative Diagnosis: B: Fibromuscular soft tissue with mucinous glands Intraoperative Consult Pathologist(s): MARY ELLEN WILLINGHAM M.D. (P) C: RT ANTERIOR SUPERIOR MIDDLE TURBINATE MARGIN Frozen Section 1: Date Ordered: 11/06/2017 13:58 Date Received: 11/06/2017 13:58 Date Called: 11/06/2017 14:48 Intraoperative Diagnosis: C: Respiratory mucosa and fibrovascular soft tissue with mucinous glands defer to permanent (cannot exclude involvement by angiomatosis with certainty) Intraoperative Consult Pathologist(s): MARY ELLEN WILLINGHAM M.D. (P) D: RT POSTERIOR SUPERIOR SEPTAL M ARGIN Frozen Section 1: Date Ordered: 11/06/2017 13:58 Date Received: 11/06/2017 13:58 Date Called: 11/06/2017 14:48 Intraoperative Diagnosis: D: Respiratory mucosa and fibrovascular soft tissue with mucinous glands defer to permanent (cannot exclude involvement by angiomatosis with certainty) Intraoperative Consult Pathologist(s): MARY ELLEN WILLINGHAM M.D. (P) ao/11/06/2017 Clinical History: Right glomangiopericytoma Specimens Submitted As: A: RT POSTERIOR INFERIOR SEPTUM B: RT ANTERIOR INFERIOR SEPTUM C: RT ANTERIOR SUPERIOR MIDDLE TURBINATE MARGIN D: RT POSTERIOR SUPERIOR SEPTAL M ARGIN E: RIGHT SUPERIOR TURBINATE F: RIGHT SINUS CONTENTS G: SEPTUM H: LEFT SINUS CONTENTS I: LEFT MAXILLARY SINUS CONTENTS J: MICRODEBRDIER Gross Description: A: Received fresh, labeled with the patient's name and hospital number and R posterior inferior septum, is one piece of red-yellow soft tissue measuring 0.5 x 0.3 x 0.1 cm. The specimen is submitted in toto in one cassette. NXJ/AO B: Received fresh, labeled with the patient's name and hospital number and R anterior inferior septum, is one piece of red-yellow soft tissue measuring 0.6 x 0.3 x 0.1 cm. The specimen is submitted in toto in one cassette. NXJ/AO C:Received fresh, labeled with the patient's name and hospital number and R anterior superior middle turbinate, is one piece of red-yellow soft tissue measuring 0.6 x 0.5 x 0.2 cm. The specimen is submitted in toto in one cassette. NXJ/AO D:Received fresh, labeled with the patient's name and hospital number and R posterior superior septum margin, is one piece of red-yellow soft tissue measuring 0.4 x 0.1 x 0.1 cm. The specimen is submitted in toto in one cassette. NXJ/AO E: Received fresh, labeled with the patient's name and hospital number and A, are multiple, irregular segments of light mejia cartilage, bone, and soft tissue aggregating to 1.5 x 1.0 x 0.7 cm. The specimen is submitted entirely in one cassette following decalcification. LMP F: Received fresh, labeled with the patient's name and hospital number and B-right sinus contents, are multiple, irregular segments of pink-mejia cartilage, bone, and soft tissue aggregating to 2.7 x 1.8 x 0.7 cm. The specimen is submitted in toto in one cassette following light decalcification. LMP G: Received fresh, labeled with the patient's name and hospital number and C, are multiple, irregular segments of light mejia cartilage and bone aggregating to 3.0 x 2.2 x 0.8 cm. The specimen is submitted entirely in 2 cassettes following decalcification. LMP H: Received fresh, labeled with the patient's name and hospital number and D-L sinus contents, are multiple, irregular segments of pink- mejia cartilage, bone, and soft tissue aggregating to 3.0 x 2.0 x 1.0 cm. The specimen is submitted entirely in 2 cassettes following decalcification. LMP I: Received in formalin, labeled with the patient's name and hospital number and A, are multiple, irregular segments of soft tissue aggregating to 1.2 x 0.4 x 0.1 cm.The specimen is entirely submitted in one cassette. IAD J: Received in formalin, labeled with the patient's name and hospital number and B, are multiple, irregular segments of mejia-pink soft tissue, possible cartilage aggregating to 3.5 x 2.4 x 2.2 cm. The specimen is submitted entirely in 5 cassettes. IAD lmp/11/07/2017 Performed By: #### [facility] #### [facility] [address] [place] [address] OPERATIVE REPORT Observed: 11/06/2017 Status: UNK Source: [place] 12:00 [place] [address] Patient Name: DENNIS. Praveen TEIXEIRA : 1955 Date of Service: 11/06/2017 Patient Location: [place] [id number] Patient Type: I Surgeon: Eduardo Almeida MD Report Type: Operative Reports PREOPERATIVE DIAGNOSES: 1. Right paranasal sinus glomangiopericytoma. 2. Rhinorrhea. 3. Facial pressure. 4. Nasal airway obstruction. 5. Decreased sense of smell. 6. Chronic sinusitis. 7. Deviated nasal septum. 8. Inferior turbinate hypertrophy. POSTOPERATIVE DIAGNOSES: 1. Right paranasal sinus glomangiopericytoma. 2. Rhinorrhea. 3. Facial pressure. 4. Nasal airway obstruction. 5. Decreased sense of smell. 6. Chronic sinusitis. 7. Deviated nasal septum. 8. Inferior turbinate hypertrophy. OPERATION/PROCEDURE: 1. Endoscopic endonasal resection of right sinonasal glomangiopericytoma, CPT 41279. 2. Bilateral nasal endoscopy with total ethmoidectomy including sphenoidotomy with tissue removal, CPT 39597-77. 3. Bilateral maxillary endoscopy with tissue removal, CPT 72118-31. 4. Right nasal endoscopy with frontal sinusotomy, CPT 93654-N. 5. Bilateral nasal endoscopy with aniceto bullosa resection, CPT 50773-77. 6. Bilateral submucous inferior turbinate reduction, CPT 68308-00. 7. Endoscopic septoplasty, CPT 25608. 8. Extracranial CT image guidance, CPT 72556. SURGEON: Eduardo Almeida M.D. FERRYBOAT DECKHAND(S): Sarah Mccormack MD ANESTHESIA: General endotracheal anesthesia. COMPLICATIONS: None. ESTIMATED BLOOD LOSS: Approximately 250 cc. SPECIMENS: 1. Multiple right frozen sections were obtained. 2. Right sinus contents. 3. Left sinus contents. 4. Left maxillary sinus contents. 5. Septum. 6. Microdebrider contents. 7. Right superior turbinate for permanent. FINDINGS: 1. Gross total resection of right sinonasal glomangiopericytoma. 2. No evidence of CSF leakage following the procedure. 3. Propel Contour stent placed within right frontal drainage pathway. 4. Bilateral Mitchell splints placed at the conclusion of the procedure. INDICATIONS FOR PROCEDURE: Shade Teixeira is a 61-year-old male whom I initially met in April 2017 with concerns over a right nasal cavity mass. He was brought to the operating room in July 2017 for biopsy which returned as glomangiopericytoma. We discussed this finding in detail, and he wished to proceed to the operating room for resection of this mass as well as to address his deviated septum and ongoing mucosal inflammation within his sinuses. DESCRIPTION OF PROCEDURE: After informed consent was obtained and all questions were answered, the patient was brought to the operating room and placed supine on the operating room table. General anesthesia was induced by the anesthesia staff. The patient was orally intubated. The table was turned 90 degrees, and Afrin-soaked pledgets were placed within both the patient's nasal cavities. The CT image guidance system was brought into the field. The CT data was uploaded, reviewed, and a plan was finalized. The headset was attached to the patient. The image guidance was registered accurate in 3 separate orientations and was used throughout the surgical procedure to identify critical landmarks such as the borders of the orbit as well as the ethmoid skull base. The patient was then prepped and draped in a standard fashion for endonasal surgery. Endoscopic septoplasty was performed. 1% lidocaine with 1:100,000 epinephrine was injected into both sides of the septum, axilla of each middle turbinate, and the anterior aspect of each inferior turbinate. After a period of approximately 15 minutes, a Oracio incision was made on the right-hand side sparing at least 15 mm of caudal strut. Submucoperichondrial and submucoperiosteal planes were developed and the deviated segments of cartilage and bone inferiorly were widely exposed. The septum was traversed, and in likewise fashion, submucoperichondrial and submucoperiosteal planes were developed on the left, exposing deviated segments of cartilage and bone more superiorly. These segments were then removed, and the septum became significantly more midline, and the Oracio incision was closed with 4-0 chromic. Bilateral submucous inferior turbinate reductions were performed. An incision was made on the anterior aspect of each inferior turbinate, and submucosal tunnels were dissected throughout the length of each inferior turbinate. Using an inferior turbinate microdebrider blade, submucosal tissue was debulked throughout the length of each inferior turbinate, and each inferior turbinate was then outfractured. Bilateral nasal endoscopy with aniceto bullosa resection was performed. The aerated portion of each middle turbinate was identified and then resected. The posterior blood supplies on each side were then cauterized. Right maxillary endoscopy with tissue removal was performed. The uncinate was identified and resected. The antrostomy was opened from the lacrimal bone anteriorly to the posterior wall of the maxillary sinus posteriorly, and the natural drainage pathway was incorporated. Edematous mucosa within the sinus was debrided, but there was no purulence. Right nasal endoscopy with total ethmoidectomy including sphenoidotomy with tissue removal was performed. Anterior and posterior ethmoid air cells adjacent to the lamina and along the ethmoid skull base were removed. The lamina and ethmoid skull base were widely skeletonized. The tumor was identified medially in association with the superior turbinate. Inferiorly, I was able to traverse the lesion of concern and enter the sphenoid sinus through its natural drainage pathway and opened the sinus widely in all orientations. Edematous mucosa at that level was debrided. Right nasal endoscopy with frontal sinusotomy was performed. With identification of the cranial base posteriorly, I proceeded anteriorly. Remnant anterior ethmoid air cells within the frontal drainage pathway were identified and removed, and the frontal sinus was cannulated and opened widely in all orientations. Edematous mucosa at that level was debrided, and a Propel Contour stent was placed. Left maxillary endoscopy with tissue removal was performed. The uncinate was identified and resected, and the antrostomy was opened from the lacrimal bone anteriorly to the posterior wall of the maxillary sinus posteriorly, and the natural drainage pathway was incorporated. Along the floor of the sinus, there was a lesion that I initially thought was a mucus retention cyst, but upon manipulation of this lesion, it was consistent with a fungal ball. This was removed with a combination of copious irrigation as well as frontal sinus instrumentation. Edematous mucosa associated with this lesion was debrided. Within the limits of a 70 degree scope, this lesion was grossly removed. Left nasal endoscopy with total ethmoidectomy including sphenoidotomy with tissue removal was performed. Anterior and posterior ethmoid air cells adjacent to the lamina along the ethmoid skull base were removed. These cells contained scattered areas of mucosal edema. The superior turbinate was identified and the inferior one-half was resected, and the natural drainage pathway of the sphenoid sinus was identified and cannulated, and the sphenoidotomy was opened widely in all orientations. Edematous mucosa at that level was debrided. Endoscopic endonasal resection of right glomangiopericytoma was performed. With the sinuses widely dissected on the right, I approached the lesion of concern. It was resected in continuity with the remnant superior turbinate. Following this, I resected the middle turbinate to the level of the skull base. There was an association of the lesion of concern with the septum, and this could have been related to the previous biopsy, but I resected the septum in this region widely and brought it anteriorly, and the posterior aspect of the septum was resected. Following this, the intersphenoid septation was drilled as was the rostrum widely clearing the posterior aspect of the lesion. I then resected the septum flush with the ethmoid skull base. I remained extra-dural. Margins were obtained from the septal cuts as well as along the remnant middle turbinate and posteriorly along the mucosa over the cribriform. There was no definitive neoplasm within the specimens. There was no evidence of CSF leakage following resection. Posteriorly, I cauterized some mildly oozing vessels at the junction of the posterior ethmoid skull base and planum. With the tumor grossly removed, we proceeded with closure. Bilateral Mitchell splints were placed and sewn with a 3-0 Prolene. The patient was returned to anesthesia staff and extubated in the operating room without complication and was transported to the PACU in satisfactory condition. I attest, Dr. Eduardo Almeida was present for all hernandez portions of the surgical procedure and immediately available for all non-hernandez portions. There were no intraoperative complications. The patient will be admitted for further care. Eduardo Almeida MD EST TT: 11/07/2017 05:09 AM EST DICTATION NUMBER: [id number] SPHERIS JOB NUMBER: [id number] CC: Lalyzoie Beth, Edited by treva 2017 07:56:00 PM Electronically Signed by Dr. Eduardo Almeida 2017 07:56:00 PM CBC AND DIFFERENTIAL Collected: 10/25/2017 Status: F Source: [place] 11:28 AM HOSPITALS REPOSITORY TYPE CODE TESTS RESULT OUT OF REFERENCE UNITS RANGE LAB WBCR(LOINC 4.4 - 11.3 x10E9/L ) WBC 7.1 LAB NRBC(LOINC 0.0-0.0 /100 WBC ) NUCLEATED RBC 0.0 LAB RBCCT(LOIN 4.50 - 5.90 x10E12/L C) RBC 4.77 LAB HGB(LOINC) 13.5 - 17.5 g/dL Low HGB 12.2 LAB HCT(LOINC) 41.0 - 52.0 % Low HCT 39.7 LAB MCV(LOINC) 80 - 100 fL MCV 83 LAB MCHC2(LOIN 32.0 - 36.0 g/dL C) Low MCHC 30.7 LAB PLTCT(LOIN 150 - 450 x10E9/L C) PLT 297 LAB RDWCV(LOIN 11.5 - 14.5 % C) RDW-CV High 17.1 LAB NEUT(LOINC 40.0 - 80.0 % ) % NEUTROPHIL 72.3 LAB IG(LOINC) 0.0 - 0.9 % % AUTOMATED 0.6 IMMATURE GRAN Result Comment: Percent differential counts (%) should be interpreted in the context of the absolute cell counts (cells/L). LAB LYMPH(LOINC) 13.0 - 44.0 % % LYMPHOCYTE 11.7 LAB MONO(LOINC) 2.0 - 10.0 % % MONOCYTE 11.4 LAB EOS(LOINC) 0.0 - 6.0 % % EOSINOPHIL 3.0 LAB BASO(LOINC) 0.0 - 2.0 % % BASOPHIL 1.0 LAB #NEUT(LOINC) 1.20 - 7.70 x10E9/L NEUTROPHIL 5.13 LAB #LYMP(LOINC) 1.20 - 4.80 x10E9/L LYMPHOCYTE Low 0.83 LAB #MONO(LOINC) 0.10 - 1.00 x10E9/L MONOCYTE 0.81 LAB #EOS(LOINC) 0.00 - 0.70 x10E9/L EOSINOPHIL 0.21 LAB #BASO(LOINC) 0.00 - 0.10 x10E9/L BASOPHIL 0.07 Performed By: #### CBCDF #### [facility] [address] [place] [id number] COAGULATION SCREEN Collected: 10/25/2017 Status: F Source: [place] [id number] [place] [address] REPOSITORY TYPE CODE TESTS RESULT OUT OF REFERENCE UNITS RANGE LAB PT(LOINC) 9.8 - 12.7 sec PROTHROMBIN TIME 12.1 LAB INR(LOINC) 0.9 - 1.1 PT, INR 1.1 LAB APTT(LOINC 25 - 36 sec ) APTT 26 Result Comment: THE APTT IS NO LONGER USED FOR MONITORING UNFRACTIONATED HEPARIN THERAPY. FOR MONITORING HEPARIN THERAPY, USE THE HEPARIN ASSAY. Performed By: #### COAGS #### [facility] [address] [place] [id number] BASIC METABOLIC PANEL Collected: 10/25/2017 Status: F Source: [place] 11:28 [facility] REPOSITORY TYPE CODE TESTS RESULT OUT OF REFERENCE UNITS RANGE LAB GLU(LOINC) 74 - 99 mg/dL GLUCOSE High 238 LAB SOD(LOINC) 136 - 145 mmol/L SODIUM 141 LAB K(LOINC) 3.5 - 5.3 mmol/L POTASSIUM 3.7 LAB CHLOR(LOIN 98 - 107 mmol/L C) CHLORIDE 98 LAB BIC(LOINC) 21 - 32 mmol/L BICARBONATE 30 LAB ANGAP(LOIN 10 - 20 mmol/L C) ANION GAP 17 LAB UREA(LOINC 6 - 23 mg/dL ) UREA NITROGEN 16 LAB CREA(LOINC 0.50 - 1.30 mg/dL ) CREATININE 0.69 LAB GFRFN(LOIN >60 mL/min/1.7 C) 3m2 GFR-NON AM. >60 LAB GFRAA(LOIN >60 mL/min/1.7 C) 3m2 GFR- AM. >60 Result Comment: CALCULATIONS OF ESTIMATED GFR ARE PERFORMED USING THE MDRD STUDY EQUATION FOR THE IDMS-TRACEABLE CREATININE METHODS. CLIN CHEM 2007;53:766-72 LAB CA(LOINC) 8.6 - 10.6 mg/dL CALCIUM 10.1 Performed By: #### BMP #### [facility] [address] [place] [address] TYPE + SCREEN Collected: 10/25/2017 Status: F Source: [place] 11:28 AM HOSPITALS REPOSITORY TYPE CODE TESTS RESULT OUT OF REFERENCE UNITS RANGE LAB ABORH(INC ) ABO TYPE A LAB RH(LOINC) RH TYPE POS LAB ABSC(INC) ANTIBODY NEG SCREEN Performed By: #### T+S #### [facility] [address] [place] [address] CHART UPDATE Observed: 10/16/2017 Status: UNK Source: [place] 12:02 PM HOSPITALS REPOSITORY Active Problems Benign neoplasm of ethmoidal sinus (212.0) (D14.0) Decreased sense of smell (781.1) (R43.8) Deviated nasal septum (470) (J34.2) Encounter for preadmission testing (V72.84) (Z01.818) Nasal congestion (478.19) (R09.81) Chart Update Progress Note Free Text_: Spoke with patient regarding a surgery date. Patient opted for 11/06/17 at [facility].Patient was advised that [facility] will call for an interview and for further instruction, and [facility] OR facility will call one business day prior to surgery for the time of surgery. In the interim, the patient was instructed to call the office for any additional questions or concerns. Signatures Electronically signed by : Mecca Sanchez R.N.; Oct 16 2017 10:38AM EST (Author) Electronically signed by : Eduardo Almeida MD; Oct 16 2017 12:02PM EST (Author) ESTABLISHED VISIT Observed: 10/11/2017 Status: UNK Source: [facility] (OTOLARY[facility]) 1:47 PM HOSPITALS REPOSITORY Chief Complaint 1. Right paranasal sinus glomangiopericytoma 2. Rhinorrhea 3. Facial pressure 4. Nasal airway obstruction 5. Decreased sense of smell 6. Deviated nasal septum 7. Nasal bleeding 8. COPD on supplemental oxygen 9. Anti-coagulation usage: currently on apixaban for history of DVT, ASA 81 for stent, Plavix History of Present Illness Reason for visit: SHADE TEIXEIRA Patient presents since last being seen 08/22/17. Shade obtained a CT scan prior to follow-up today. We reviewed this together today and formulated a surgical plan. Active Problems Benign neoplasm of ethmoidal sinus (212.0) (D14.0) Decreased sense of smell (781.1) (R43.8) Deviated nasal septum (470) (J34.2) Encounter for preadmission testing (V72.84) (Z01.818) Nasal congestion (478.19) (R09.81) Past Medical History History of anemia (V12.3) (Z86.2) History of arthritis (V13.4) (Z87.39) History of blood loss (V12.59) (Z87.898) History of bronchitis (V12.69) (Z87.09) History of chest pain (V13.89) (Z87.898) History of chronic obstructive lung disease (V12.69) (Z87.09) History of coronary artery disease (V12.59) (Z86.79) History of depression (V11.8) (Z86.59) History of diabetes mellitus (V12.29) (Z86.39) History of gastroesophageal reflux (GERD) (V12.79) (Z87.19) History of heartburn (V12.79) (Z87.898) History of high cholesterol (V12.29) (Z86.39) History of hypertension (V12.59) (Z86.79) History of shortness of breath (V13.89) (Z87.898) History of sleep apnea (V13.89) (Z86.69) History of snoring (V15.89) (Z87.898) History of Lung trouble (786.00) (J98.4) History of Nasal cavity mass (784.2) (R22.0) Surgical History History of Hip Replacement History of Knee Surgery History of Tonsillectomy Family History Family history of malignant neoplasm (V16.9) (Z80.9) Family history of Crohn's disease (V18.59) (Z83.79) Social History Former consumption of alcohol (V11.3) (Z87.898) Never a smoker Person living alone (V60.3) (Z60.2) Allergies No Known Drug Allergies Recorded By: Ana Ross; 04/27/2017 1:09:22 PM Current Meds Albuterol Sulfate (2.5 MG/3ML) 0.083% Inhalation Nebulization Solution; Therapy: (Recorded:26Jul2017) to Recorded Dispense: 0 Days ; #: Sufficient NEBU; Refill: 0; ZORA = N; Record; Last Updated By: Sharad Edward; 07/26/2017 1:50:25 PM AmLODIPine Besylate 10 MG Oral Tablet; Therapy: (Recorded:26Jul2017) to Recorded Dispense: 0 Days ; #: Sufficient TABS; Refill: 0; ZORA = N; Record; Last Updated By: Sharad Edward; 07/26/2017 1:50:24 PM Aspirin Childrens 81 MG Oral Tablet Chewable; Therapy: (Recorded:26Jul2017) to Recorded Dispense: 0 Days ; #: Sufficient CHEW; Refill: 0; ZORA = N; Record; Last Updated By: Sharad Edward; 07/26/2017 1:50:25 PM Aspirin EC 81 MG Oral Tablet Delayed Release; Therapy: (Recorded:26Jul2017) to Recorded Dispense: 0 Days ; #: Sufficient TBEC; Refill: 0; ZORA = N; Record; Last Updated By: Sharad Edward; 07/26/2017 1:50:24 PM Atorvastatin Calcium 40 MG Oral Tablet; Therapy: (Recorded:26Jul2017) to Recorded Dispense: 0 Days ; #: Sufficient TABS; Refill: 0; ZORA = N; Record; Last Updated By: Sharad Edward; 07/26/2017 1:50:24 PM BD TB Syringe 27G X 1/2 1 ML Miscellaneous; Therapy: 03Jul2017 to Recorded Rx By: KIRIT; Dispense: 22 Days ; #:60 MISC; Refill: 0; ZORA = N; Record; Last Updated By: Yoselin Green; 10/10/2017 2:24:56 PM Clopidogrel Bisulfate 75 MG Oral Tablet; Therapy: (Recorded:26Jul2017) to Recorded Dispense: 0 Days ; #: Sufficient TABS; Refill: 0; ZORA = N; Record; Last Updated By: Sharad Edward; 07/26/2017 1:50:24 PM Clotrimazole 1 % External Cream; Therapy: 03Oct2017 to Recorded Rx By: NELSY; Dispense: 15 Days ; #:45 CREA; Refill: 0; ZORA = N; Record; Last Updated By: Yoselin Green; 10/10/2017 2:24:56 PM Fluticasone Propionate 50 MCG/ACT Nasal Suspension; Therapy: (Recorded:26Jul2017) to Recorded Dispense: 0 Days ; #: Sufficient SUSP; Refill: 0; ZORA = N; Record; Last Updated By: Sharad Edward; 07/26/2017 1:50:25 PM FreeStyle Lite Test In Vitro Strip; Therapy: 09May2017 to Recorded Rx By: KIRIT; Dispense: 50 Days ; #:100 STRP; Refill: 0; ZORA = N; Record; Last Updated By: Yoselin Green; 10/10/2017 2:24:56 PM Furosemide 40 MG Oral Tablet; Therapy: (Recorded:26Jul2017) to Recorded Dispense: 0 Days ; #: Sufficient TABS; Refill: 0; ZORA = N; Record; Last Updated By: Sharad Edward; 07/26/2017 1:50:24 PM Gemfibrozil 600 MG Oral Tablet; Therapy: (Recorded:26Jul2017) to Recorded Dispense: 0 Days ; #: Sufficient TABS; Refill: 0; ZORA = N; Record; Last Updated By: Sharad Edward; 07/26/2017 1:50:25 PM Glimepiride 4 MG Oral Tablet; Therapy: (Recorded:26Jul2017) to Recorded Dispense: 0 Days ; #: Sufficient TABS; Refill: 0; ZORA = N; Record; Last Updated By: Sharad Edward; 07/26/2017 1:50:25 PM HumuLIN R U-500 (CONCENTRATED) 500 UNIT/ML Subcutaneous Solution; Therapy: 17Jul2017 to Recorded Rx By: KIRIT; Dispense: 30 Days ; #:40 SOLN; Refill: 0; ZORA = N; Record; Last Updated By: Yoselin Green; 10/10/2017 2:24:56 PM Insulin Purified Lente (Pork) 100 U/ML SUSP; Therapy: (Recorded:26Jul2017) to Recorded Dispense: 0 Days ; #: Sufficient SUSP; Refill: 0; ZORA = N; Record; Last Updated By: Sharad Edward; 07/26/2017 1:50:25 PM Klor-Con M20 20 MEQ Oral Tablet Extended Release; Therapy: 29Aug2016 to Recorded Rx By: KIRIT; Dispense: 30 Days ; #:180 TBCR; Refill: 0; ZORA = N; Record; Last Updated By: Yoselin Green; 10/10/2017 2:24:56 PM LORazepam 1 MG Oral Tablet; Therapy: (Recorded:26Jul2017) to Recorded Dispense: 0 Days ; #: Sufficient TABS; Refill: 0; ZORA = N; Record; Last Updated By: Sharad Edward; 07/26/2017 1:50:25 PM MetFORMIN HCl - 1000 MG Oral Tablet; Therapy: (Recorded:27Apr2017) to Recorded Dispense: 0 Days ; #: Sufficient TABS; Refill: 0; ZORA = N; Record; Last Updated By: Ana Ross; 04/27/2017 1:09:22 PM MetOLazone 2.5 MG Oral Tablet; Therapy: (Recorded:26Jul2017) to Recorded Dispense: 0 Days ; #: Sufficient TABS; Refill: 0; ZORA = N; Record; Last Updated By: Sharad Edward; 07/26/2017 1:50:25 PM Metoprolol Succinate ER 100 MG Oral Tablet Extended Release 24 Hour; Therapy: (Recorded:26Jul2017) to Recorded Dispense: 0 Days ; #: Sufficient TB24; Refill: 0; ZORA = N; Record; Last Updated By: Sharad Edward; 07/26/2017 1:50:25 PM Metoprolol Succinate ER 200 MG Oral Tablet Extended Release 24 Hour; Therapy: 29Aug2016 to Recorded Rx By: KIRIT; Dispense: 30 Days ; #:30 TB24; Refill: 0; ZORA = N; Record; Last Updated By: Yoselin Green; 10/10/2017 2:24:56 PM Multi Vitamin/Minerals Oral Tablet; Therapy: (Recorded:26Jul2017) to Recorded Dispense: 0 Days ; #: Sufficient TABS; Refill: 0; ZORA = N; Record; Last Updated By: Sharad Edward; 07/26/2017 1:50:25 PM Naproxen Sodium CAPS; Therapy: (Recorded:26Jul2017) to Recorded Dispense: 0 Days ; #: Sufficient CAPS; Refill: 0; ZORA = N; Record; Last Updated By: Sharad Edward; 07/26/2017 1:50:25 PM Nitroglycerin 0.4 MG Sublingual Tablet Sublingual; Therapy: (Recorded:26Jul2017) to Recorded Dispense: 0 Days ; #: Sufficient SUBL; Refill: 0; ZORA = N; Record; Last Updated By: Sharad Edward; 07/26/2017 1:50:25 PM OneTouch Delkirstie Lancets 33G Miscellaneous; Therapy: 19Sep2017 to Recorded Rx By: KIRIT; Dispense: 90 Days ; #:300 MISC; Refill: 0; ZORA = N; Record; Last Updated By: Yoselin Green; 10/10/2017 2:24:56 PM PARoxetine HCl - 40 MG Oral Tablet; Therapy: (Recorded:26Jul2017) to Recorded Dispense: 0 Days ; #: Sufficient TABS; Refill: 0; ZORA = N; Record; Last Updated By: Sharad Edward; 07/26/2017 1:50:25 PM Potassium Chloride 40 MEQ/15ML (20%) Oral Solution; Therapy: (Recorded:26Jul2017) to Recorded Dispense: 0 Days ; #: Sufficient SOLN; Refill: 0; ZORA = N; Record; Last Updated By: Sharad Edward; 07/26/2017 1:50:25 PM Ranexa 500 MG Oral Tablet Extended Release 12 Hour; Therapy: (Recorded:[id number]) to Recorded Dispense: 0 Days ; #: Sufficient TB12; Refill: 0; ZORA = N; Record; Last Updated By: Sharad Edward; 07/26/2017 1:50:25 PM TiZANidine HCl - 4 MG Oral Tablet; Therapy: 02Aug2017 to Recorded Rx By: ROSLYN; Dispense: 30 Days ; #:30 TABS; Refill: 0; ZORA = N; Record; Last Updated By: Yoselin Green; 10/10/2017 2:24:56 PM TraMADol HCl - 50 MG Oral Tablet; Therapy: 12Jul2017 to Recorded Rx By: ROSLYN; Dispense: 7 Days ; #:14 TABS; Refill: 0; ZORA = N; Record; Last Updated By: Yoselin Green; 10/10/2017 2:24:56 PM Ventolin HFA 108 (90 Base) MCG/ACT Inhalation Aerosol Solution; Therapy: 28Sep2017 to Recorded Rx By: ANN; Dispense: 17 Days ; #:18 AERS; Refill: 0; ZORA = N; Record; Last Updated By: Yoslein Green; 10/10/2017 2:24:56 PM Results/Data The patient and I reviewed his CT scan obtained October 10, 2017. Redemonstrated was the right nasal cavity / paranasal sinus mass. He also had a deviated septum and scattered mucosal inflammation within a number of sinuses. 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 Right paranasal sinus glomangiopericytoma 2. Rhinorrhea 3. Facial pressure 4. Nasal airway obstruction 5. Decreased sense of smell 6. Deviated nasal septum 7. Nasal bleeding 8. COPD on supplemental oxygen 9. Anti-coagulation usage: currently on apixaban for history of DVT, ASA 81 for stent, Plavix Discussion: Shade has been presented at tumor board and resection was recommended. The sinus surgery itself was discussed at length. The risks, benefits, and alternatives were explained in detail which include but is not limited to: persistence of symptoms, anesthesia, pain, bleeding, infection, need for nasal packing, double vision, vision loss, CSF leak requiring other procedures to repair, numbness of teeth/and or face, need for revision surgery, and unexpected risks. We also dis cussed potential recurrence of the lesion if it is not completely resected. We specifically discussed alterations to his sense of smell. The patient understands these risks. We discussed septoplasty itself including the risks, benefits and alternatives including but not limited to the following: Numbness of teeth/and or face, alteration in sense of smell or taste, need for further surgery, inability to correct nasal obstruction, bleeding, pain, infection, anesthetic risk, septal perforation and unexpected complications. The risks of bilateral submucous inferior turbinate reductions were discussed and include bleeding in the short term and re-hypertrophy and recurrence of symptoms long-term. There is a very low risk of scarring associated with this type of procedure. He will be admitted following this procedure for close monitoring. We also discussed medical risks of this procedure most notably cardiac and pulmonary. He tolerated the previous procedure well but this procedure will be longer and we discussed the inherent medical ris ks. He understood these risks and wished to proceed. I will schedule the patient at their convenience going forward. All questions were answered. I spent greater than 15 minutes of nlfj-jw-tgly time with the patient approximately 14 minutes counseling and coordinating care. Patient Discussion/Summary Please feel free to contact my office by calling [phone] with any questions. End of Encounter Meds Albuterol Sulfate (2.5 MG/3ML) 0.083% Inhalation Nebulization Solution; Therapy: (Recorded:26Jul2017) to Recorded AmLODIPine Besylate 10 MG Oral Tablet; Therapy: (Recorded:26Jul2017) to Recorded Aspirin Childrens 81 MG Oral Tablet Chewable; Therapy: (Recorded:26Jul2017) to Recorded Aspirin EC 81 MG Oral Tablet Delayed Release; Therapy: (Recorded:26Jul2017) to Recorded Atorvastatin Calcium 40 MG Oral Tablet; Therapy: (Recorded:26Jul2017) to Recorded BD TB Syringe 27G X 1/2 1 ML Miscellaneous; Therapy: 03Jul2017 to Recorded Clopidogrel Bisulfate 75 MG Oral Tablet; Therapy: (Recorded:26Jul2017) to Recorded Clotrimazole 1 % External Cream; Therapy: 03Oct2017 to Recorded Fluticasone Propionate 50 MCG/ACT Nasal Suspension; Therapy: (Recorded:26Jul2017) to Recorded FreeStyle Lite Test In Vitro Strip; Therapy: 09May2017 to Recorded Furosemide 40 MG Oral Tablet; Therapy: (Recorded:26Jul2017) to Recorded Gemfibrozil 600 MG Oral Tablet; Therapy: (Recorded:26Jul2017) to Recorded Glimepiride 4 MG Oral Tablet; Therapy: (Recorded:26Jul2017) to Recorded HumuLIN R U-500 (CONCENTRATED) 500 UNIT/ML Subcutaneous Solution; Therapy: 17Jul2017 to Recorded Insulin Purified Lente (Pork) 100 U/ML SUSP; Therapy: (Recorded:26Jul2017) to Recorded Klor-Con M20 20 MEQ Oral Tablet Extended Release; Therapy: 29Aug2016 to Recorded LORazepam 1 MG Oral Tablet; Therapy: (Recorded:26Jul2017) to Recorded MetFORMIN HCl - 1000 MG Oral Tablet; Therapy: (Recorded:27Apr2017) to Recorded MetOLazone 2.5 MG Oral Tablet; Therapy: (Recorded:26Jul2017) to Recorded Metoprolol Succinate ER 100 MG Oral Tablet Extended Release 24 Hour; Therapy: (Recorded:26Jul2017) to Recorded Metoprolol Succinate ER 200 MG Oral Tablet Extended Release 24 Hour; Therapy: 29Aug2016 to Recorded Multi Vitamin/Minerals Oral Tablet; Therapy: (Recorded:26Jul2017) to Recorded Naproxen Sodium CAPS; Therapy: (Recorded:26Jul2017) to Recorded Nitroglycerin 0.4 MG Sublingual Tablet Sublingual; Therapy: (Recorded:26Jul2017) to Recorded OneTouch Delica Lancets 33G Miscellaneous; Therapy: 19Sep2017 to Recorded PARoxetine HCl - 40 MG Oral Tablet; Therapy: (Recorded:26Jul2017) to Recorded Potassium Chloride 40 MEQ/15ML (20%) Oral Solution; Therapy: (Recorded:26Jul2017) to Recorded Ranexa 500 MG Oral Tablet Extended Release 12 Hour; Therapy: (Recorded:26Jul2017) to Recorded TiZANidine HCl - 4 MG Oral Tablet; Therapy: 02Aug2017 to Recorded TraMADol HCl - 50 MG Oral Tablet; Therapy: 12Jul2017 to Recorded Ventolin HFA 108 (90 Base) MCG/ACT Inhalation Aerosol Solution; Therapy: 28Sep2017 to Recorded Signatures Electronically signed by : Eduardo Almeida MD; Oct 11 2017 1:47PM EST (Author) CT SINUS WO CONTRAST Observed: 10/10/2017 Status: F Source: [place] 12:59 PM HOSPITALS REPOSITORY Patient Name: SHADE TEIXEIRA STUDY: CT SINUS WO CONTRAST; 10/10/2017 12:59 pm INDICATION: Signs/Symptoms: Right sino-nasal neoplasm Nasal congestion Benign neoplasm of middle ear, nasal cavity and accessory sinuses . COMPARISON: None. ACCESSION NUMBER(S): [id number] ORDERING CLINICIAN: EDUARDO ALMEIDA TECHNIQUE: Thin section axial images were obtained through the paranasal sinuses. Coronal and sagittal reconstruction images were generated. Soft tissue and bone windows were reviewed. FINDINGS: Imim-zi-pbfijoai S-shaped nasal septal deviation. Bilateral middle turbinate aniceto bullosa, an anatomic variant of normal. The infundibulum of each ostiomeatal complex was patent. There is mucosal thickening of the left inferior turbinate. Superiorly in the right nasal passage, there is a nodular soft tissue density measuring 19 mm longitudinally by 10 mm transversely by 18 mm AP. There is a 21 mm anterior inferior left maxillary sinus retention cyst, and another 14 mm diameter retention cyst just cephalad to this, and mild inferior left maxillary sinus mucosal thickening. There was bgwa-kz-abthgybn mucosal thickening in the right maxillary sinus, most pronounced along the floor. There is mild scattered mucosal thickening in several bilateral ethmoid air cells, right greater than left. The frontal and sphenoid sinuses are clear. There is no fluid level. There are periapical lucency surrounding the roots of the right maxillary 2nd premolar and 1st molar, and also the left maxillary 2nd premolar and 2nd molar, consistent with periapical abscesses. Periapical abscess involving the lateral root of the right 2nd premolar does appear to extend into the bottom of the right maxillary sinus. There was no mass posteriorly in the region of the nasopharynx. No suspicious soft tissue mass or adenopathy in the imaged neck. Mild prominence of ventricles and sulci throughout the brain.. There was no gross midline shift or acute intracranial bleed. Each orbit was grossly intact. IMPRESSION: Rhinosinusitis as described, without fluid level. Also, suspected superior right nasal polyp. Clinical correlation needed. Ykub-xz-cabwqdxu S-shaped nasal septal deviation. Bilateral middle turbinate aniceto bullosa. Periapical abscesses involving bilateral maxillary 2nd premolars, right maxillary 1st molar, and left maxillary 2nd molar. Mild volume loss in the brain. 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 Electronically signed by: JAVIER TORRES MD PULMONARY VISIT REPORT Observed: 10/09/2017 Status: F Source: [place] 12:48 PM REPOSITORY [facility] [address] [place] [address] OFFICE VISIT Date of Service: 10/09/17 MR#: [id number] Acct: [id number] Name: SHADE TEIXEIRA Rep #: [id number] : 1955 Provider: Damion Hawkins MD Age/Sex: 61/M Location: [facility] [place].[facility] Status: Signed Assessment AND Plan 1. FAVIAN (obstructive sleep apnea) G47.33 Plan Patient appears to be doing okay from an AHI perspective. However, patient does have excessive leak noted. Stressed to the patient that transition of mask may be beneficial in treating this condition. However, given patient's persistent leak and nasal findings, will possibly decrease patient to 15/11 cm of water at the next visit. Monitor AHI through compliance reports. Okay to discontinue BiPAP therapy if patient is required to do so during ENT recovery phase. Possible transition of BiPAP pressures at next visit 2. Chronic hypoxemic respiratory failure J96.11 Plan Patient does report a 25 pound weight loss compared to previous. Patient is currently saturating well on room air at rest. High clinical suspicion for pulmonary edema contributing to patient's hypoxemia. Likely repeat pulmonary function test and walking oximetry in 6 months. Repeat pulmonary function test walking oximetry in 6 months. Encourage continued weight loss. 3. Morbid obesity with BMI of 40.0-44.9, adult E66.01; Z68.41 Plan Patient has successfully initiated a weight loss routine. Patient was given encouragement and understands that additional weight loss may help his obstructive sleep apnea. Patient voiced understanding. Some concern that patient may be having hypoglycemia given dietary modification and was instructed to check blood sugars 4 times daily and notify lumber sticker if blood sugars less than 80 routinely. Increase surveillance for blood glucose. 4. 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 Patient is being seen by ENT. Await results of surgery. Okay to hold on BiPAP therapy transiently to allow for healing after surgery if recommended by ENT. Await results of surgery. Plan Detail Follow Up 3 Months (CSM) HPI 3 M FU: Chief Complaint: Fatigue Details: Patient is a 61-year-old male, currently in the care of Dr. Beth, who presents for evaluation secondary to daytime fatigue. Since last visit, patient does report to the ER visits with epistaxis and one with hypoglycemia down to 32. Patient denies any hospitalizations or prednisone burst. Patient does report that he has achieved a 25 pound weight loss from dietary modification and increased walking outside given the nice weather. Patient feels that his dyspnea is subjectively improved compared to previous. Patient does report that he had a biopsy of his nose and this has come back as malignant. Patient states he is having a CT scan in the near future to plan for possible intervention. Patient reports he has been compliant with BiPAP therapy. Patient states that he was instructed to take off the ramp and to change masks, however feels that this made things worse and has gone back to his previous treatment. Patient does report some fatigue during the day, but feels this is improved compared to previous. Patient reports he has been using Ventolin 1-2 times per day for shortness of breath. Patient feels that he is much improved from this perspective. Patient has had some sinus drainage and pressure, but has attributed this to his nasal issue. Patient does report occasionally getting dizzy, especially with ambulation during the day. This is not associated with shortness of breath. No palpitations are reported during these episodes. Personally reviewed with the patient Compliance report (September 2017): Compliant 70% of days for an average of 7 hours 13 minutes on BiPAP 17/13 cm water with a residual AHI of 0.2 and excessive leak noted. Documentation reviewed ER report from 09/01/17 and 09/03/17 was personally reviewed showing patient presented to [facility] ER with a blood sugar of 32 and right-sided epistaxis. Patient does take Plavix and aspirin. Patient was treated symptomatically and discharged home. Intake Vital Signs10/09/17 Height 5 ft 10 in 10/09/17 Weight: 124.738 kg Intake Visit Reasons: 3 M FU Chief Complaint: Routine f/u DME Vendor: Bee Accompanied by: Self Allergies No Known Allergies Allergy (Verified 10/09/17 10:23) Medications Aspirin [Aspirin, Baby] 81 mg PO DAILY@0800 01/07/15 [History Confirmed 09/01/17] Atorvastatin Calcium [Lipitor] 80 mg PO QHS 01/07/15 [History Confirmed 09/01/17] Furosemide [Lasix] 40 mg PO BID 01/07/15 [History Confirmed 09/01/17] Glimepiride [Amaryl] 4 mg PO BID 01/07/15 [History Confirmed 09/01/17] Metformin HCl [Glucophage] 1,000 mg PO BIDCM 01/07/15 [History Confirmed 09/01/17] Metoprolol(XL)Succ [Toprol Xl (Beta Robinson)] 100 mg PO BID 01/07/15 [History Confirmed 09/01/17] Multivitamins,Therapeutic [Multivitamin] 1 tab PO DAILY 05/10/16 [History Confirmed 09/01/17] Lorazepam [Ativan] 0.5 mg PO BID 01/18/17 [History Confirmed 09/01/17] Insulin Regular, Human [Humulin R U-500 Kwikpen] 40 unit SQ BID 06/10/17 [History Confirmed 09/01/17] Potassium Chloride [Klor-Con M20] 40 meq PO TID 06/30/17 [History Confirmed 09/01/17] amlodipine 10 mg tablet 10 mg PO DAILY #30 tab 07/18/17 [Rx Confirmed 09/01/17] clopidogrel 75 mg tablet 75 mg PO DAILY #90 tab 07/18/17 [Rx Confirmed 09/01/17] nitroglycerin 0.4 mg sublingual tablet 0.4 mg SUBLINGUAL Q5M PRN #25 tab 07/18/17 [Rx Confirmed 09/01/17] Cephalexin [Keflex] 500 mg PO Q12H #10 cap 09/03/17 [Rx] albuterol sulfate HFA 90 mcg/actuation aerosol inhaler 2 puff INHALATION Q4H PRN PRN #18 g 09/26/17 [Rx] metolazone 2.5 mg tablet 2.5 mg PO .2xwk tab 10/09/17 [History Confirmed 10/09/17] [facility] Medical History Atherosclerosis of coronary artery of [place] heart without angina pectoris (Chronic) FAVIAN (obstructive sleep apnea) (Chronic) Dyspnea on exertion (Chronic) Acquired left ventricular hypertrophy (Chronic) Abnormal chest xray (Chronic) Chest discomfort (Chronic) Near syncope (Chronic) Overweight (Chronic) Hypoxia (Chronic) Hypertriglyceridemia (Chronic) Morbid obesity with BMI of 40.0-44.9, adult (Chronic) Epistaxis (Acute) Type 2 diabetes mellitus (Chronic) Hypertension (Chronic) Hyperlipidemia (Chronic) History of DVT (deep vein thrombosis) (Chronic) Osteoarthritis (Chronic) History of pulmonary embolism (Resolved) Surgical History History of coronary artery stent placement (Chronic 05/11/16) Family History Mother Colon cancer Social History Smoking Status: Former smoker second hand exposure: No alcohol intake: never substance use type: does not use caffeine: Yes (1/day) what type of physical activity do you participate in: none Review of Systems Const CONSTITUTIONAL: Positive fatigue; negative anorexia, body ache, chills, daytime sleepiness, fever(s), night sweats, oral thrush, stops breathing during sleep, weight loss, sleeping in chair, weight loss, weight gain, frequent colds, seasonal allergies, other, headache(s) or orthopnea EETM Ear Nose Throat Mouth: Positive hearing normal and dry mouth in morning; negative hard of hearing, hoarseness, change in vision, itchy eyes, eye pain, swallowing Difficulty, ear pain, nose bleed, headache(s), mouth pain, nasal congestion, nasal discharge, post nasal drip, sinus pain, sinus pressure, sore throat or other Cardio Cardiovascular: Negative chest pain, chest pain at rest, chest pain with activity, irregular heart rhythm, edema, shortness of breath when lying down, palpitations, murmur or other Resp Respiratory: Positive as per HPI and shortness of breath; negative pain with cough, wheezing, chest congestion, cough, chest tightness, pain on inspiration, inhalers, increase use of rescue inhalers, snoring, apnea or other Gastro Gastrointestional: Negative bloody stools, change in appetite, difficulty swallowing, reflux, hematemesis, melena stool, loose stool, constipation or other Genitourinary: Negative blood in urine, nocturia, pain with urination or other Musc Musculoskeletal: Negative body pain, back pain, neck pain or other Skin/Breast Skin/Breast: Negative dry skin, itching, rash, unusual bruising, breast lump or other Neuro Neurological: Positive restless legs; negative confusion, weakness or other Psych Psychocological: Positive abnormal sleep pattern; negative anxiety, thoughts of hurting self/others, hopelessness or other Lymph Lymphatic: Negative easy bleeding, easy bruising, swollen lymph nodes or other Exam Const Constitutional: Positive conversant, cooperative, in no acute respiratory distress, healthy appearing, well developed, well nourished, good hygiene and obese; negative wearing supplemental oxygen, ill appearing or smells of smoke Head Head: Positive normocephalic and atraumatic; negative cyanosis of lips/distal nose, microcephalic or macrocephalic Eyes Eye: Positive clear conjunctiva; negative nystagmus or scleral abnormality Ears Ear: Positive hearing normal and external ears normal; negative hard of hearing Nose Nose: Positive external nose normal, nasal polyp and clear nasal discharge; negative epistaxis or septum normal Mouth Mouth: Positive oral mucosae normal, poor dentition, crowded posterior oropharynx and no lesions; negative post nasal drip or oral thrush present Mallampati Score: III: Mallampati Score Neck Neck: Positive normal visual inspection, thick neck, full ROM, trachea midline and male neck greater than 43 cm (17 in); negative lymphadenopathy or JVD Chest Wall Chest: Positive normal inspection of the chest; negative increased A/P diameter, symmetric chest movement, crepitus or tenderness Resp lung sounds: Positive clear to auscultation, good air exchange, normal expiratory time and normal respiratory effort; negative wheezes, rhonchi, rales, wheeze present on forced exhalation or dullness to percussion Cardio Cardiac: Positive regular rate, regular rhythm, S1 normal and S2 normal; negative murmur, rub or gallop GI GI: Positive obese, normal to inspection and normal bowel sounds; negative distended or ascites Genitourinary: Positive deferred Musc Musculoskeletal: Positive steady gait and ROM normal; negative using an assistive device for ambulation, kyphosis or scoliosis Skin Pulmonary Skin Exam: Positive intact; negative rash, lesion, ulcers, erythema or dermal atrophy Pulses Pulse: Yes radial pulses present Extremities Extremities: Yes capillary refill normal, No clubbing, No cyanosis, Yes edema (2+ lower extremity bilateral) Neuro Neurologic: Yes conversant, Yes no focal neuro deficits, Yes normal concentration, Yes understands questions, Yes cooperative, Yes normal cognition, Yes normal coordination Lymph Lymphatic: No lymphadenopathy Psych Appearance: Positive grossly normal Mental Status: Positive mental status grossly normal Mood: Positive congruent mood Affect: Positive normal affect Coding Level of Care Code Off vis,est,level 4 Diagnoses FAVIAN (obstructive sleep apnea) G47.33 Chronic hypoxemic respiratory failure J96.11 Morbid obesity with BMI of 40.0-44.9, adult E66.01; Z68.41 Epistaxis R04.0 10/09/17 1248 <Electronically signed by Damion Hawkins MD> Date Damion Hawkins MD Cosigner Signature: Date (if applicable) CC: Nicho Beth MD CARDIOLOGY VISIT Observed: 10/09/2017 Status: F Source: [place] REPORT 11:10 AM REPOSITORY [facility] [address] [place] [address] OFFICE VISIT Date of Service: 10/09/17 MR#: [id number] Acct: [id number] Name: SHADE TEIXEIRA Rep #: [id number] : 1955 Provider: Harinder Gracia MD Age/Sex: 61/M Location: [facility] [place] Status: Signed HPI HPI Chief Complaint: Routine f/u Details: Details: HPI Reffering physician: Dr. Beth This is a 61-year-old morbidly obese white male who presents today for a cardiovascular follow up. He has a history of diabetes, hypertension, coronary artery disease, hypercholesterolemia, obstructive sleep apnea, pulmonary embolus in 2008. He has no family history of cardiac disease. As part of his previous cardiac workup he underwent a walking stress test on 12/15/14 which was submaximal but nonetheless had a hypertensive blood pressure response to exercise. It was at that time that Imdur was added. He had no chest pain symptoms, but did have some dynamic ST segment depression. His imaging study was negative.Underwent a diagnostic coronary angiogram which indicated he may have significant mid LAD and PDA disease. He underwent FFR evaluation at [facility] on 01/21/15. At [facility] his FFR of his LAD was found to be 0.88, and his FFR of his PDA was found to be 0.99. No intervention was performed. patient was found to be profoundly hypertensive,requiring a nitroglycerin drip. In 11/2015 patient has a stress echocardiogram which was abnormal and demonstrated an estimated ejection fraction is 65 %, Positive for ischemia by ECG criteria. He developed [address] depression along infero/lateral leads during exercise which resolved by 7:50 in to recovery. No associated wall motion abnormalities. No anginal symptoms noted. Rare PVC noted. The test terminated due to dyspnea and difficulty keeping up with treadmill. Appropriate BP response to exercise. Final LVEF=75%. Patient had continued chest pain, and was referred for angioplasty of the LAD. On 05/11/16, he underwent elective angioplasty and drug-eluting stenting. Patient had minimal disease of his left circumflex, RCA and PDA. During his previous office visit, his Imdur was decreased due to lightheadedness and his cardiac rehab was placed on hold due to orthostatic hypotension as well. His metolazone was also decreased to and Sundays as well. The patient states that since being stented, his chest pain and shortness of breath has significantly improved, however he still notes dyspnea on exertion and midsternal chest discomfort at times with exertion, but the frequency has decreased, And the quality of this chest pain is different than his previous angina. Patient was a chronic O2 therapy and has not participated in cardiac rehab due to history of hypertension. He denies any lightheadedness, dizziness, presyncope or syncope. He is taking and tolerating his medicines well. 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 Apparently the patient unbeknownst office was admitted for observation for fluid overload after his metolazone was held due to dehydration by 1 of our [employer]'s. This caused him to have fluid accumulation, acute heart failure requiring IV diuretic therapy. This occurred while I was out of town. Subsequent to that he went to for his surgery, and due to this recent admission his anesthesiologist postpone his surgery. Immediately prior to this in January 2017 he underwent a dobutamine stress echo which was negative for inducible ischemia. A new surgical date has not yet been obtained. Since his discharge from , he denies any chest pain, angina, and reports that his dyspnea on exertion is much better. He was on Lasix 80 mg p.o. twice daily for 3 days followed by 40 mg twice daily currently. In addition he is taking metolazone 2 times a week on Monday and . He denies any anginal symptoms. Due to hypotension his hydralazine was discontinued. He is awaiting to undergo polypectomy tomorrow. Otherwise he is taking and tolerating his medicines well. Patient states that occasionally he gets palpitations which are self-limiting, and complains of a dry mouth once in a while. He has been compliant with his medications per In our office today his blood pressure is 110/60, and pulse is 86 and regular. He has very distant breath sounds bilaterally, he has trace to 1+ bilateral lower extremity edema which is stable. His lipids as of 05/12/16 show an LDL of 24 and HDL of 23. Lipids dated 02/02/17 showed LDL of 63 and HDL 24. He is on chronic O2 therapy. Intake Vital Signs10/09/17 Height 5 ft 10 in Intake Visit Reasons: 4 M FU Allergies No Known Allergies Allergy (Verified 10/09/17 10:23) Medications Aspirin [Aspirin, Baby] 81 mg PO DAILY@0800 01/07/15 [History Confirmed 09/01/17] Atorvastatin Calcium [Lipitor] 80 mg PO QHS 01/07/15 [History Confirmed 09/01/17] Furosemide [Lasix] 40 mg PO BID 01/07/15 [History Confirmed 09/01/17] Glimepiride [Amaryl] 4 mg PO BID 01/07/15 [History Confirmed 09/01/17] Metformin HCl [Glucophage] 1,000 mg PO BIDCM 01/07/15 [History Confirmed 09/01/17] Metoprolol(XL)Succ [Toprol Xl (Beta Robinson)] 100 mg PO BID 01/07/15 [History Confirmed 09/01/17] Multivitamins,Therapeutic [Multivitamin] 1 tab PO DAILY 05/10/16 [History Confirmed 09/01/17] Lorazepam [Ativan] 0.5 mg PO BID 01/18/17 [History Confirmed 09/01/17] Insulin Regular, Human [Humulin R U-500 Kwikpen] 40 unit SQ BID 06/10/17 [History Confirmed 09/01/17] Potassium Chloride [Klor-Con M20] 40 meq PO TID 06/30/17 [History Confirmed 09/01/17] amlodipine 10 mg tablet 10 mg PO DAILY #30 tab 07/18/17 [Rx Confirmed 09/01/17] clopidogrel 75 mg tablet 75 mg PO DAILY #90 tab 07/18/17 [Rx Confirmed 09/01/17] nitroglycerin 0.4 mg sublingual tablet 0.4 mg SUBLINGUAL Q5M PRN #25 tab 07/18/17 [Rx Confirmed 09/01/17] Cephalexin [Keflex] 500 mg PO Q12H #10 cap 09/03/17 [Rx] albuterol sulfate HFA 90 mcg/actuation aerosol inhaler 2 puff INHALATION Q4H PRN PRN #18 g 09/26/17 [Rx] metolazone 2.5 mg tablet 2.5 mg PO .2xwk tab 10/09/17 [History Confirmed 10/09/17] PFSH Medical History Atherosclerosis of coronary artery of [place] heart without angina pectoris (Chronic) FAVIAN (obstructive sleep apnea) (Chronic) Dyspnea on exertion (Chronic) Acquired left ventricular hypertrophy (Chronic) Abnormal chest xray (Chronic) Chest discomfort (Chronic) Near syncope (Chronic) Overweight (Chronic) Hypoxia (Chronic) Hypertriglyceridemia (Chronic) Morbid obesity with BMI of 40.0-44.9, adult (Chronic) Epistaxis (Acute) Type 2 diabetes mellitus (Chronic) Hypertension (Chronic) Hyperlipidemia (Chronic) History of DVT (deep vein thrombosis) (Chronic) Osteoarthritis (Chronic) History of pulmonary embolism (Resolved) Surgical History History of coronary artery stent placement (Chronic 05/11/16) Family History Mother Colon cancer Social History Smoking Status: Never smoker second hand exposure: No alcohol intake: never substance use type: does not use caffeine: Yes (1/day) what type of physical activity do you participate in: none ROS Const Const: Positive for other (Schedules for sinus polypectomy tomorrow); negative for fatigue, weakness, difficulty sleeping, frequent falls, headache(s) or excessive sweating Eyes Eyes: Negative for loss of peripheral vision, transient loss of vision, blurry vision or double vision ENT ENT: Negative for headache(s), dizziness, Nosebleed/epistaxis or balance problems Cardio Chest Pain: No Palpitations: Yes (Occasional fluttering) Edema: Bilateral (BLE ankle edema non pitting) Muscle aches with walking: None Resp Respiratory: Positive for SOB with activity; negative for SOB at rest, SOB orthopnea\SOB lying down or paroxysmal nocturnal dyspnea Additional Details: Using B-PAP GI GI: Negative nausea or heartburn : Negative for hematuria Musc Musc: Negative for muscle aches/ myalgia, muscle weakness, joint pain or balance problems Skin Skin: Negative non-healing lesions, unusual bruising or rash Neuro Neuro: Negative for weakness, frequent falls, blurry vision, headache(s), dizziness, lightheadedness, orthostatic symptoms or double vision Brett Hematologic/Lymphatic: Negative for easy bruising Endo Endo: Negative for fatigue, excessive sweating or increased thirst/drinking Psych Psych: Negative for anxiety or depression Allergy Allergy/Immunology: Negative for hives, Negative for rash Cardiology Exam Const Appearance: cooperative, healthy appearing and no acute distress Nutritional Appearance: well nourished Orientation: alert, oriented x3 and oriented to person Head Head: normal to inspection, atraumatic and normocephalic Nose: external nose normal Face and Sinus: face symmetric Mouth: oral mucosae normal Eyes General: appearance normal, both eyes and all related structures Eyelids: eyelids normal Conjunctivae: conjunctivae normal Pupils: PERRL and normal by confrontation EOM: EOM intact bilaterally Neck Neck: normal visual inspection and full ROM Carotids: normal carotid upstroke Chest Chest inspection: normal inspection of the chest Auscultation: Bilateral: Clear to Auscultation Cardio Palpation: normal PMI Rate: regular rate Rhythm: regular rhythm Heart sounds: S1 normal and S2 normal GI GI: normal to inspection, no hepatosplenomegaly and bowel sounds present Neuro General: alert, oriented x3, awake, CN's II-XI intact bilaterally and moves all extremities Skin Skin: no rashes or lesions noted Extremities Pulses: Normal: Right Femoral Pulse, Left Femoral Pulse, Right Dorsalis Pedis Pulse, Left Dorsalis Pedis Pulse, Right Posterior Tibial Pulse, Left Posterior Tibial Pulse, Right Radial Pulse, Left Radial Pulse Lower Extremity Edema: None: Bilateral Psych Psychological: normal affect Assessment AND Plan 1. Atherosclerosis of coronary artery of [place] heart without angina pectoris I25.10 PCI-Mid LAD 3.0 x 16 mm Promus Synergy DANIEL Plan 1. Coronary artery disease: No exertional anginal symptoms at this time. No indication for any additional testing. Recommend he continue his baby aspirin, amlodipine, Plavix, Lasix, metolazone and metoprolol. I advised the patient that he can back off his metolazone to once a week on the weeks where he feels he has a dry mouth and is somewhat dehydrated particularly with positional lightheadedness. The history with this patient is a requires dual diuretic therapy at least periodically in order to avoid worsening CHF and fluid overload. 2. Hyperlipidemia, unspecified hyperlipidemia type E78.5 Plan 2. Hyperlipidemia: His LDL and HDL cholesterol are fairly well-controlled on her last visit. Continue high-dose Lipitor. 3. Return office in 6 months. This note was generated using a voice recognition system and there may be incorrect words, spelling or punctuation that were not noted when reviewing the office note prior to saving. Plan Detail Follow Up +6M ([place]) Coding Level of Care Code Off vis,est,level 3 Diagnoses Atherosclerosis of coronary artery of [place] heart without angina pectoris I25.10 Hyperlipidemia, unspecified hyperlipidemia type E78.5 Coding Level of Care Code Off vis,est,level 3 Diagnoses Atherosclerosis of coronary artery of [place] heart without angina pectoris I25.10 Hyperlipidemia, unspecified hyperlipidemia type E78.5 10/09/17 1110 <Electronically signed by Harinder Gracia MD> Date Harinder Gracia MD Cosigner Signature: Date (if applicable) CC: Nicho Beth MD CBC W/DIFF, AUTOMATED Collected: 09/19/2017 Status: F Source: [place] 1:35 PM REPOSITORY TYPE CODE TESTS RESULT OUT OF RANGE REFERENCE UNITS LAB L100.1000 4.4-11.0 K/mm3 Normal WBC 9.6 LAB L100.1200 4.6-6.2 M/mm3 Normal RBC 5.14 LAB L100.1300 13.0-16.5 g/dl Low HGB 12.4 LAB L100.1400 40-54 % Normal HCT 41.5 LAB L100.1500 80-94 fL Normal MCV 80.7 LAB L100.1600 27.0-32.0 pg Low MCH 24.1 LAB L100.1700 32-36 g/gl Low MCHC 29.9 LAB L100.1810 11.6-14.6 % High RDW CV 18.9 LAB L100.1820 35.1-43.9 fl High RDW SD 55.1 LAB L100.1900 150-450 K/mm3 Normal PLT 347 LAB L100.2000 6.2-12.0 fl Normal MPV 9.4 LAB L100.2100 47-70 % High NEUT% 76.0 LAB L100.2200 19-41 % Low LY% 9.0 LAB L100.2300 0-10 % High MONO% 13.5 LAB L100.2400 0-5 % Normal EO% 1.0 LAB L100.2500 0-1 % Normal BASO% 0.2 LAB L100.2550 0.0-0.9 % Normal IM GRAN % 0.300 Result Comment: IG% - Immature Granulocytes (promyelocytes, myelocytes and metamyelocytes) > 1% indicates that a LEFT SHIFT is Present. LAB L100.2620 2.0-7.7 X10 3/uL Normal Absolute Neut 7.3 LAB L100.2720 0.83-4.51 X10 3/ul Normal Absolute Lymph 0.86 Performed By: #### L100.0100 #### [facility] [place], [address] COMPREHENSIVE METABOLIC Collected: 09/19/2017 Status: F Source: [facility] 1:35 PM REPOSITORY TYPE CODE TESTS RESULT OUT OF RANGE REFERENCE UNITS LAB L501.0100 74-106 mg/dL High GLU 230 Result Comment: Glucose result greater than or equal to 200 mg/dL suggests DIABETES MELLITUS per A.D.A. criteria. Please note revised GLUCOSE reference range effective 2017. LAB L501.1000 7-18 mg/dL High BUN 19 LAB L501.1100 0.70-1.30 mg/dL Normal CREAT,SERUM 1.09 Result Comment: The validity of the calculated GFR AND GFRAA in patients over 70 years has not been determined. Clinical correlation is essential. LAB L501.1110 >60 mL/min Normal EST GFR 73 Result Comment: Non- GFR Calc LAB L501.1115 >60 mL/min Normal EST GFR - AA 89 Result Comment: GFR Calc LAB L501.1300 10-20 RATIO Normal BUN/CRE 17.4 LAB L501.1500 6.4-8.2 g/dL T Normal PROT 8.1 LAB L501.1800 3.2-5.0 g/dL Normal ALB 3.9 LAB L501.1950 2.2-4.2 g/dL Normal GLOB 4.2 LAB L501.2000 0.9-2.4 RATIO Normal A/G 0.9 LAB L501.2200 8.5-10.1 mg/dL High CA 10.3 LAB L501.4100 15-37 U/L Normal AST 24 LAB L501.4305 45-117 U/L Normal ALK P 72 LAB L501.4405 16-61 U/L Normal ALT 56 LAB L501.4600 0.20-1.00 mg/dL T Normal BILI 0.60 LAB L501.5300 136-145 mmol/L NA Normal 136 LAB L501.5600 3.5-5.1 mmol/L K Normal 3.6 LAB L501.5900 98-107 mmol/L CL Normal 99 LAB L501.6100 21.0-32.0 mmol/L Normal CO2 26.0 LAB L501.6200 5-15 Normal GAP 11 Performed By: #### L500.4050, L501.9520 #### [facility] [address] 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) Decreased sense of smell (781.1) (R43.8) Deviated nasal septum (470) (J34.2) Encounter for preadmission testing (V72.84) (Z01.818) 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) Nasal congestion (478.19) (R09.81) Diagnoses/Problems 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 : Right sino-nasal neoplasm Chart Update Progress Note Free Text_UH: I spoke to the patient via telephone. We had some difficulty connecting with him over the telephone. I presented him at tumor board within the last few weeks. No further imaging was recommended with the exception of the repeat CT scan of the sinuses. I will order this today and I asked the patient to f ollow-up in clinic to review the results and to formulate a plan going forward. He was amenable to proceeding with surgical intervention. We can discuss the details of this at his next clinic visit. Signatures Electronically signed by : Eduardo Almeida MD; Sep 17 2017 3:46PM EST (Author) DISCHARGE INSTRUCTION Observed: 09/03/2017 Status: F Source: [facility] 4:18 PM [facility] REPOSITORY [facility] Medical Records Department [address] [place] [address] Discharge Instruction 09/03/176 MR#: [id number] Acct: [id number] Name: SHADE TEIXEIRA Rep #: [id number] : 1955 61 From: Guzman Landers MD PCP: Nicho Beth MD, Chi Status: PRE ER ED Disposition - Plan for ED Patient: Chief Complaint: Nosebleed Instructions: Nosebleed Prescriptions: Cephalexin [Keflex] 500 mg PO Q12H #20 cap Referrals: Nicho Beth Chi, MD [Primary Care Provider] - Additional Instructions: Follow up with ENT at [facility]. I spoke to the on-call physician who stated that they would contact you if however you do not hear from them in the next several days call for an appointment. Take all antibiotics as prescribed. Return for new or worsening symptoms. What to do if you have Problems For any increased pain, shortness of breath, bleeding, nausea or vomiting, chest pain, or any unexpected problems, contact your Primary Care Provider. Call [facility] ([phone]) or report to the closest Emergency Room. Call 911 if necessary. 09/03/171617 <Electronically signed by Guzman Landers MD> Date Guzman Landers MD Cosigner Signature (If Indicated): Date CC: Nicho Beth MD EMERGENCY DEPARTMENT Observed: 09/03/2017 Status: F Source: [facility] SUMMARY 4:15 PM [facility] REPOSITORY [facility] Medical Records Department [address] [place] [address] Emergency Department Summary 09/03/17 1610 MR#: [id number] Acct: [id number] Name: SHADE TEIXEIRA Rep #: [id number] : 1955 61 From: Guzman Landers MD PCP: Nicho Beth MD, Chi Status: PRE ER - ER Visit Summary Date of Service: 09/03/17 Chief Complaint: Nosebleed History of Present Illness: The patient is a 61 M who presents with epistaxis. It began 2 days ago. He was seen in the emergency department at that time and treated with FloSeal. He states his bleeding was controlled but after returning home and using his BiPAP the FloSeal came out and he has had intermittent mild bleeding since that time. He otherwise is asymptomatic and has no other complaints. 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 He had a cancerous tumor which was biopsied on July 04. The patient states he has not followed up with ENT since that time and has called but his not been able to speak to anyone or heard back. Physical Examination: Afebrile vitals normal Patient has a large clot in the right nostril which was evacuated there does appear to be a mass mild active bleeding Heart regular rate and rhythm Lungs are clear Abdomen soft Test Results: Not indicated Emergency Department Course and Treatment: Topical lidocaine soaked cotton ball was placed in the right nostril. An anterior 5-1/2 cm Rhino Rocket packing was placed. Bleeding is well controlled. I spoke to ENT on-call up at [facility]. They report that the patient was seen by Dr. Almeida last week although the patient denied this. They did advise that he would need prophylactic antibiotics. They will arrange for close outpatient follow-up and for packing removal. I was notified by nursing that the patient was complaining of pain and anxiety and felt like he could not swallow. The patient is in no distress his oropharynx is patent he has no respiratory difficulty. The packing was slightly withdrawn. We will monitor him here for a while longer and plan is discharge. Treatment Plan: [] Disposition: Discharge Impression: Epistaxis Cancerous nasal tumor This note was generated with [employer] dictation software. It may contain incorrect words, spelling, and punctuation that were not noted in review of the chart prior to signing ED Disposition - Plan for ED Patient: Chief Complaint: Nosebleed Referrals: Nicho Beth Chi, MD [Primary Care Provider] - What to do if you have Problems For any increased pain, shortness of breath, bleeding, nausea or vomiting, chest pain, or any unexpected problems, contact your Primary Care Provider. Call [facility] ([phone]) or report to the closest Emergency Room. Call 911 if necessary. 09/03/17 1615 <Electronically signed by Guzman Landers MD> Date Guzman Landers MD Cosigner Signature (If Indicated): Date CC: Nicho Beth MD EMERGENCY DEPARTMENT Observed: 09/02/2017 Status: F Source: [place] SUMMARY 1:26 AM [facility] Medical Records Department [address] [place] [address] Emergency Department Summary 09/01/17 1632 MR#: [id number] Acct: [id number] Name: SHADE TEIXEIRA Rep #: [id number] : 1955 61 From: Harinder Woods DO PCP: Nicho Beth MD, Chi Status: DEP ER - ER Visit Summary Date of Service: 09/01/17 Chief Complaint: Epistaxis History of Present Illness: The patient is a 61 M who presents with a right-sided epistaxis since 10:00 this morning. 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 He has had no further treatment for it. He states he is waiting to hear back from his surgeon in [place] who is on [address] there. The patient states he is on Plavix and aspirin. He denies any headaches. No neurologic symptoms. Physical Examination: Afebrile vital signs are stable Gen: Well-nourished well-developed obese Head: Normocephalic atraumatic Eyes: Perrl EOMI ENT: TMs clear moist mucous membranes. There is no active bleeding noted in the posterior pharynx. Patient has a nasal cotton packing in and that was removed. There is a mass versus other tissue in the right nare laterally. There is mild dark blood bleeding noted. Neck: Supple no lymphadenopathy no JVD nontender CVS: Regular rate rhythm no murmurs normal S1-S2 Respiratory: No distress clear to auscultation bilaterally chest nontender Abdomen: Soft nontender nondistended normal bowel sounds no masses Back: Nontender Extremity: Nontender no edema Skin: Normal color no rash Neuro: alert orientated 3 CN II-XII intact normal strength sensation reflexes gait cerebellar Psych: Normal affect normal mood Test Results: Blood sugar obtained was 32. Emergency Department Course and Treatment: While waiting for FloSeal the patient became sweaty and weak. Blood sugar checked and was low 32. He states he had a banana for lunch. He was given orange juice and food. FloSeal was applied. Patient was observed in the department. Repeat blood sugar was obtained. Patient will need to call his ENT physician in [place] and arrange follow-up early next week. Return if worsening or concerns. Impression: 1. Right sided epistaxis 2. Diabetic hypoglycemia This note was generated with [employer] dictation software. It may contain incorrect words, spelling, and punctuation that were not noted in review of the chart prior to signing ED Disposition - Plan for ED Patient: Disposition: Home or Assisted Living Chief Complaint: Nosebleed Instructions: Nosebleed, ED Diabetes Hypoglycemia Insulin React Additional Instructions: Please call your ENT doctor to arrange early follow-up next week. Return to emergency room if worsening or concerns. What to do if you have Problems For any increased pain, shortness of breath, bleeding, nausea or vomiting, chest pain, or any unexpected problems, contact your Primary Care Provider. Call [facility] ([phone]) or report to the closest Emergency Room. Call 911 if necessary. 09/02/17 0126 <Electronically signed by Harinder Woods DO> Date Harinder Woods DO Cosigner Signature (If Indicated): Date CC: Nicho Beth MD BEDSIDE GLUCOSE Collected: 09/01/2017 Status: F Source: [place] 5:58 PM REPOSITORY TYPE CODE TESTS RESULT OUT OF REFERENCE UNITS RANGE LAB L501.080 70-110 mg/dL High BEDSIDE GLU 124 Result Comment: MANAGEMENT OF PATIENT CARE PER NURSING PROTOCOL Performed By: #### L501.080 #### [facility] Point of Care [address] [place] [address] BEDSIDE GLUCOSE Collected: 09/01/2017 Status: F Source: [place] 5:07 PM REPOSITORY TYPE CODE TESTS RESULT OUT OF RANGE REFERENCE UNITS LAB L501.080 70-110 mg/dL Normal BEDSIDE GLU 76 Result Comment: MANAGEMENT OF PATIENT CARE PER NURSING PROTOCOL Performed By: #### L501.080 #### [facility] Point of Care [address] [place] [address] BEDSIDE GLUCOSE Collected: 09/01/2017 Status: F Source: [place] 4:10 PM REPOSITORY TYPE CODE TESTS RESULT OUT OF REFERENCE UNITS RANGE LAB L501.080 70-110 mg/dL Low alert BEDSIDE GLU 32 Result Comment: Snack Given MANAGEMENT OF PATIENT CARE PER NURSING PROTOCOL Performed By: #### L501.080 #### [facility] Point of Care [address] [place] [address] TUMOR BOARD NOTE-HEAD Observed: 09/01/2017 Status: UNK Source: [facility]K 10:58 AM HOSPITALS REPOSITORY Note: Tumor Board Note SHADE TEIXEIRA was presented at Head and Neck Tumor Board Conference on 01-Sep-[address]Kenneth Almeida. Impression: Presented with Epistaxis, rhinorrhea and nasal airway obstruction found to have right nasal cavity mass, biopsy revealing sinonasal glomangiopericytoma. Recommendations: Surgical excision. Disclaimer SCC tumor board recommendations represent the consensus opinion of physicians present at a weekly patient care conference. The treating SCC physician is not always present, and many of the physicians formulating the recommendation have not personally seen or examined the patient under discussion. It is understood that the treating SCC physician considers the expertise of the Tumor Board Recommendation in formulating his/her plan for the patient. However, in many situations, based on individualized patient considerations, a different plan is determined by the treating physician to be the optimal medical management. Electronic Signatures: Berry Woodward (N MGR) (Signed 01-Sep-2017 10:58) Authored: Tumor Board, Disclaimer Last Updated: 01-Sep-2017 10:58 by Berry Woodward (N MGR) GLUCOSE-POCT Collected: 08/07/2017 Status: F Source: [place] 2:11 PM HOSPITALS REPOSITORY TYPE CODE TESTS RESULT OUT OF RANGE REFERENCE UNITS LAB GLUP(LOINC) 74 - 99 mg/dL High 119 GLUCOSE-POCT Performed By: #### GLUPO #### [facility] [address] [place] [address] POST OPERATIVE NOTE - Observed: 08/07/2017 Status: COMPLETED Source: [place] 1:42 PM HOSPITALS REPOSITORY Post Operative Note: PreOp Diagnosis: Right nasal cavity mass Post-Procedure Diagnosis: Same Procedure: 1. Nasal endoscopy with biopsy Surgeon: Juan Pablo Resident/Fellow/Other Drapery Supervisor: Mitchell Anesthesia: General Estimated Blood Loss (mL): 5 Specimen: yes Complications: None Findings: right posterior nasal mass biopsied Patient Returned To/Condition: pacu / stable Additional Details: No permanent packing placement. Signature/Cosignature/Attestation: Attending Attestation I was present for the entire procedure Electronic Signatures: Hay Medrano (Resident)) (Signed 07-Aug-2017 13:45) Authored: Post Operative Note, Signature/Cosignature/Attestation Eduardo Almeida) (Signed 07-Aug-2017 14:38) Authored: Post Operative Note, Signature/Cosignature/Attestation Co-Signer: Post Operative Note, Signature/Cosignature/Attestation Last Updated: 07-Aug-2017 14:38 by Eduardo Almeida) PREOP CHECKLIST Observed: 08/07/2017 Status: UNK Source: [place] 12:09 PM HOSPITALS REPOSITORY Preop Checklist: Preop Checklist: ? Arrival Date 07-Aug-2017 ? Arrival Time 11:56 ? Procedure Type Endo sinus surgery ? NPO Status 06-Aug-2017 19:30 ? ID Band On yes ? Allergy Band no known allergies ? Consent Signed yes ? H&P Complete yes ? Anesthesia Assessment Completed yes ? EKG Performed see results tab ? Chest X-Ray Performed see results tab ? Chlorhexadine Bath Given not applicable ? Soap and water bath with hair shampoo the night before surgery yes ? SCD's Applied sent to OR ? RASHEEDA Hose Applied not ordered ? Dentures not applicable ? Prosthetics not applicable ? Hearing Aids not applicable ? Valuables Secured sent with family cousin Oswald west glasses ? Glasses / Contacts not applicable ? Bowel Prep no Cardiovascular Assessment: ? Apical regular ? Radial Pulses palpable ? Pedal Pulses palpable ? Extremities warm, well perfused Respiratory Assessment: ? Respirations unlabored regular ? Air Exchange equal, good ? Breath Sounds clear Neurological Assessment: ? Level of Consciousness alert, oriented ? Mobility moves all extremities ? Able to Express Self yes ? Age Appropriate yes ? Emotional Status anxious Preop Education: ? Surgical Site Infection Prevention yes ? Pain Scales and Management yes Language / Communication: ? Language / Communication [place] Electronic Signatures: Veronica Spencer (CLARITA) (Signed 07-Aug-2017 12:10) Authored: Preop Checklist Last Updated: 07-Aug-2017 12:10 by Veronica Spencer (CLARITA) PATIENT PROFILE - Observed: 08/07/2017 Status: UNK Source: [place] PREOP V2 11:42 AM HOSPITALS REPOSITORY Profile: Initial Info: How to be Addressed Shade Spoken Language Preferred [place] Source of Information patient Are you currently using the Personal Electronic Health Record or [facility] no Are you interested in learning more about [employer] for the management of your health not at this time Stated Reason for Admission sinus surgery Primary Contact Name and Number Joleen gupta [phone] Limitations on Visitors/Phone Calls none Patient Belongings none Medications Brought to Hospital no General Health: Weight in kg 129.4 kilogram(s) Weight in lbs 285.2 pound(s) Weight Method actual (measured) Scale Type standing Height in cm 177.8 centimeter(s) Height in feet 5 feet Height in inches 10 inch(es) Height Method stated BMI (kg/m2) 40.932 square meter Patient or Family Member Reaction to Anesthesia no previous reaction Equipment Currently Used at Home bath bench Blood Avoidance/Restrictions none Previous Transfusion Reaction no Health Mgmt: Symptoms/Conditions Managed at Home cardiovascular; respiratory; cancer Cancer Symptoms/Conditions lung Cardiovascular Symptoms/Conditions hypertension; dysrhythmia Respiratory Symptoms/Conditions COPD Barriers to Managing Health none Relationship/Environ: Lives With alone Living Arrangements apartment(1) Resource/Environmental Concerns none Anticipated Transition To home Services Anticipated at Transition none Substance: Current or Former Substance Use never: Street Drugs YES: Cigarette/Tobacco, Alcohol Substance Use unable to assess Tobacco Cessation Education (provide if tobacco use within the last 12 mos) not applicable Alcohol Use Status past alcohol Alcohol Amount 10 or more drinks Alcohol Type liquor Method of Quitting quit on own Risk Screens: Advance Directive Medical no Advance Directive Information Given patient/family declined Advance Directive Mental Health not applicable During the past month, have you often been bothered by feeling down, depressed or hopeless? no During the past month, have you often had little interest or pleasure in doing things? no Have you had any thoughts of harming yourself? no Have you had any thoughts of harming anyone else? no Patient is Able to be Assessed for Learning yes Factors Influencing Readiness to Learn acuteness of illness Factors that Impact Ability to Learn none Devices/Methods Used to Communicate none Learning Preferences skill demonstration Cultural Considerations none Developmental Considerations none Jainism Considerations none Other learner available no Falls Risk Patient location auto qualifies him/her for HIGH RISK. Are there any cultural, spiritual, adventism practices/values/needs that are important for us to know? no Do you want a visit/item from Pastoral Care? no Would you like your Manager Inventory Management/Stitcher Set Up Operator Automatic notified? no Pain Scale numerical 0-10 Pain Scale Education teaching provided Current Pain Level 0 = None Acceptable Pain Level 4 = Moderate Chronic Pain no Information Review: ? Allergies, Home Meds and Significant Events have been Reviewed and Verified with Patient/Family yes Allergy, Intolerance, Adverse Event: Allergies: ? No Known Allergies: Active Electronic Signatures: Veronica Spencer (CLARITA) (Signed 07-Aug-2017 12:08) Authored: Profile, Additional Information Last Updated: 07-Aug-2017 12:08 by Veronica Spencer (CLARITA) References: 1. Data Referenced From Patient Profile - Preop v2 06/15/2017 06:26 AM HISTORY AND PHYSICAL Observed: 08/07/2017 Status: COMPLETED Source: [facility] - SURGICAL UPDATE < 11:39 AM HOSPITALS REPOSITORY 30 DAYS History & Physical Reviewed: I have reviewed the History and Physical dated: 07-Aug-2017 History and Physical reviewed and relevant findings noted. Patient examined to review pertinent physical findings.: No significant changes Home Medications Reviewed: no changes noted Allergies Reviewed: no changes noted This patient has been seen and discussed with the attending physician responsible for performing the procedure: yes Signatures/Attestation/Certification: Attending Attestation I saw and evaluated the patient. I personally obtained the hernandez and critical portions of the history and physical exam or was physically present for hernandez and critical portions performed by the resident/fellow. I reviewed the resident/fellow?s documentation and discussed the patient with the resident/fellow. I agree with the resident/fellow?s medical decision making as documented in the resident?s note. I personally evaluated the patient (as noted in the above attestation) on 07-Aug-2017 Attending Provider ? Inpatient Certification Statement N/A - observation patient/other outpatient visits Electronic Signatures: Hay Medrano (Resident)) (Signed 07-Aug-2017 11:39) Authored: History & Physical Reviewed, Signatures/Attestation/Certification Eduardo Almeida) (Signed 07-Aug-2017 14:37) Authored: Signatures/Attestation/Certification Co-Signer: History & Physical Reviewed, Signatures/Attestation/Certification Last Updated: 07-Aug-2017 14:37 by Eduardo Almeida) FLOW CYTOMETRY TEST Collected: 08/07/2017 Status: F Source: [place] 12:00 AM HOSPITALS REPOSITORY TYPE CODE TESTS RESULT OUT OF REFERENCE UNITS RANGE LAB FCTSO(LOINC ) SOURCE TISSUE Result Comment: NASAL MASS [id number] LAB FCTOR(LOINC) FLOW LYMPHOMA TEST ORDERED PANEL Performed By: #### FCTST #### [facility] [address] [place] [address] SURFACE MARKERS Collected: 08/07/2017 Status: F Source: [place] LYMPHOMA PANEL 12:00 AM HOSPITALS REPOSITORY TYPE CODE TESTS RESULT OUT OF REFERENCE UNITS RANGE LAB FSITE(LOIN C) SPECIMEN SITE Nasal Mass LAB LGPD1(LOIN C) DIAGNOSIS SEE BELOW Result Comment: Predominance of CD45 negative and/or non-viable events. No clonal B cell or abnormal T cell population identified. LAB LGPNO(LOINC) NOTE SEE BELOW Result Comment: Correlate with separate surgical pathology report [id number]. LAB VIAB(LOINC) SPECIMEN Acceptable VIABILITY LAB CCOUN(LOINC) x10E9/L CELL COUNT 0.51 LAB CCOLL(LOINC) per tube NUMBER OF 200 CELLS COLLECTED LAB LPERC(LOINC) % LYMPHOCYTE 1 % LAB LCD4(LOINC) % of Lymph CD4 52 LAB LCD8(LOINC) % of Lymph CD8 43 LAB LNK(LOINC) % of Lymph NK 0 LAB LCD19(LOINC) % of Lymph CD19 0 LAB LANTB(LOINC) METHOD SEE BELOW Result Comment: This test is a multicolor, whole blood lysis assay. It was developed and its performance characteristics determined by the Department of Pathology, [facility], and has not been cleared or approved by the U.S. Food and Drug Administration. The laboratory is regulated under CLIA as qualified to perform high complexity testing. This test is used for clinical purposes. It should not be regarded as investigational or for research. Immunophenotypic analysis was performed using the following antibodies: CD45, CD71, CD30, CD40, CD95, CD14, CD56, CD7, CD4, CD8, CD3, CD2, CD26, CD5, CD43, CD23, CD20, CD19, CD11c, CD180, CD1c, CD79b, [place], Lambda, CD38, CD10. Performed By: #### LYPAN #### [facility] [address] [place] [address] SURF MARKERS >15,PATH Collected: 08/07/2017 Status: F Source: [facility] REV 12:00 HOSPITALS REPOSITORY TYPE CODE TESTS RESULT OUT OF REFERENCE UNITS RANGE LAB PV194(LOINC ) PATH REV. >15 K.SEVERINO MARKERS Result Comment: By her/his signature above, the Pathologist listed as making the final interpretation certifies that she/he has personally reviewed this case. Performed By: #### PR194 #### [facility] [address] SURGICAL PATHOLOGY Observed: 08/07/2017 Status: F Source: [facility] DEPARTMENT 12:00 AM HOSPITALS REPOSITORY Name SHADE TEIXEIRA Pathologist: LIAM HAQ JR, MD, PhD. Date of Procedure: 08/07/2017 Date Received: 08/07/2017 Date Reported 08/11/2017 Submitting Physician: EDUARDO ALMEIDA MD Location: [place] Other External # FINAL DIAGNOSIS A AND B: RIGHT NASAL CAVITY MASS, BIOPSY: -- MESENCHYMAL NEOPLASM CONSISTENT WITH SINONASAL GLOMANGIOPERICYTOMA, (SEE NOTE) NOTE: No high grade histologic features (such as high mitotic rate or necrosis) is seen. There is no evidence of lymphoma. MANAGER MEDICAL: Dr. Ace Lemus MORPHOLOGY: The specimens are composed of fragments of nasal mucosa with an underlying submucosa containing sheets of mostly spindled shaped cells in a patternless (vaguely fascicular in some areas, storiform in others) configuration. The cells are medium sized with moderately abundant cytoplasm, indistinct cell boundaries, ovoid nuclei, stippled chromatin with occasional chromocenters or small nucleoli. There are numerous thin walled vessels with peritheliomatous hyalinization. Mitotic figures or necrosis are not seen. IMMUNOHISTOCHEMISTRY: Immunohistochemical stains performed on block B1 demonstrate the following results: S100: Negative SOX10: Negative HMB-45: Negative Melan A: Negative Beta-Catenin: Diffuse and strong nuclear positivity SMA: Positive in a significant subset of the cells Ki67: Proliferation index less than 5% CD34: Appears positive in a subset of the cells FLOW CYTOMETRY: Performed and showed a predominance of CD45 negative or non viable events. See separate report for details. The gross and/or microscopic findings were reviewed in conjunction with pathology resident, Jesse Henderson M.D. Electronically Signed Out By LIAM HAQ JR, MD, PhD./FLAQUITA By the signature on this report, the individual or group listed as making the Final Interpretation/Diagnosis certifies that they have reviewed this case. Clinical History: Nasal mass Specimens Submitted As: A: RIGHT NASAL CAVITY MASS B: RIGHT NASAL CAVITY MASS Gross Description: A. Received fresh, labeled with the patient's name and hospital number a multiple fragments of mejia-pink soft tissue aggregating to 1.0 x 0.3 x 0.2 cm. Half of the specimen is submitted for flow cytometry. The other half is submitted for permanents in one cassette. NUB B. Received in formalin, labeled with the patient's name and hospital number and A are multiple fragments of unoriented white mejia tissue aggregating to 1.3 x 1.0 x 0.3 cm. The specimen is submitted entirely in one cassette. MXB mxb/08/08/2017 The assays/tests were performed with appropriate positive and negative controls which stained appropriately. Performed By: #### [facility] #### [place] Surgical Pathology Department [address] [place] [address] OPERATIVE REPORT Observed: 08/07/2017 Status: UNK Source: [place] 12:00 [place] [address] Patient Name: DENNIS. Praveen TEIXEIRA : 1955 Date of Service: 08/07/2017 Patient Location: [place] [address] Patient Type: O Surgeon: Eduardo Almeida MD Report Type: Operative Reports PREOPERATIVE DIAGNOSIS: 1. Right paranasal sinus mass. 2. Rhinorrhea. 3. Facial pressure. 4. Nasal airway obstruction. 5. Decreased sense of smell. 6. Deviated nasal septum. POSTOPERATIVE DIAGNOSIS: 1. Right paranasal sinus mass. 2. Rhinorrhea. 3. Facial pressure. 4. Nasal airway obstruction. 5. Decreased sense of smell. 6. Deviated nasal septum. OPERATION/PROCEDURE: Right nasal endoscopy with biopsy, CPT 77958-X. SURGEON: Eduardo Almeida MD FERRYBOAT DECKHAND(S): Hay Medrano MD ANESTHESIA: General endotracheal anesthesia. COMPLICATIONS: None. ESTIMATED BLOOD LOSS: Approximately 5 cc. SPECIMENS: 1. Right paranasal sinus mass for permanent. 2. Right paranasal sinus mass for lymphoma protocol. FINDINGS: Nasal cavity mass identified in the region of the sphenoethmoid recess and was biopsied. INDICATIONS FOR PROCEDURE: Shade Teixeira is a 61-year-old male, who I initially met on April 27, 2017, with concerns as listed in the preoperative diagnosis. He had undergone imaging demonstrating a lesion within the right nasal cavity/paranasal sinuses without bony destruction. He had inflammatory changes within his other sinuses. At the time of his clinic visit, he was anticoagulated, and we discussed a number of options, and he was comfortable proceeding to the operating room for biopsy under a general anesthetic. Once we had pathology from this biopsy, we can proceed with additional surgical options if desired for the remainder of his symptoms. DESCRIPTION OF PROCEDURE: After informed consent was obtained and all questions were answered, the patient was brought to the operating room and placed supine on the operating room table. General anesthesia was induced by the anesthesia staff, and the patient was orally intubated. The table was turned 90 degrees. Afrin-soaked pledgets were placed within the right nasal cavity. Right nasal endoscopy with biopsy was performed. The Afrin- soaked pledgets were removed, and nasal endoscopy was performed. He had a deviated septum to that side. There was some scarring between the inferior turbinate and the septum. I lateralized the middle turbinate and was able to visualize a polypoid appearing mass in the region of the sphenoethmoid recess. This was biopsied multiple times both for permanent pathology as well as for lymphoma protocol. Hemostasis was achieved with Afrin as well as Surgicel placed at the base of the biopsy. There was no evidence of CSF leakage. The patient was returned to the anesthesia staff and extubated in the operating room without complication. The patient was transferred to PACU in stable condition. I attest, Dr. Eduardo Almeida participated in the entirety of the surgical procedure. There were no intraoperative complications noted. Eduardo Almeida MD EST TT: 08/07/2017 10:48 PM EST DICTATION NUMBER: [id number] SPHERIS JOB NUMBER: [id number] CC: Nichozoie Beth, Edited by treva 08/13/2017 12:45:09 PM Electronically Signed by Dr. Eduardo Almeida 08/13/2017 12:45:09 PM TYPE + SCREEN Collected: 07/31/2017 Status: F Source: [place] [address] [place] [address] REPOSITORY TYPE CODE TESTS RESULT OUT OF REFERENCE UNITS RANGE LAB ABORH(LOINC ) ABO TYPE A LAB RH(LOINC) RH TYPE POS LAB ABSC(LOINC) ANTIBODY NEG SCREEN Performed By: #### T+S #### [facility] [address] [place] [address] CBC Collected: 07/31/2017 Status: F Source: [place] [address] [place] [address] REPOSITORY TYPE CODE TESTS RESULT OUT OF REFERENCE UNITS RANGE LAB WBCR(LOINC 4.4 - 11.3 x10E9/L ) WBC 9.8 LAB NRBC(LOINC 0.0-0.0 /100 WBC ) NUCLEATED RBC 0.0 LAB RBCCT(LOIN 4.50 - 5.90 x10E12/L C) RBC 5.51 LAB HGB(LOINC) 13.5 - 17.5 g/dL Low HGB 13.1 LAB HCT(LOINC) 41.0 - 52.0 % HCT 44.4 LAB MCV(LOINC) 80 - 100 fL MCV 81 LAB MCHC2(LOIN 32.0 - 36.0 g/dL C) Low MCHC 29.5 LAB PLTCT(LOIN 150 - 450 x10E9/L C) PLT 344 LAB RDWCV(LOIN 11.5 - 14.5 % C) High RDW-CV 17.0 Performed By: #### CBC #### [facility] [address] [place] [address] COMPREHENSIVE PANEL Collected: 07/31/2017 Status: F Source: [place] 4:21 PM HOSPITALS REPOSITORY TYPE CODE TESTS RESULT OUT OF REFERENCE UNITS RANGE LAB GLU(LOINC) 74 - 99 mg/dL GLUCOSE High 135 LAB SOD(LOINC) 136 - 145 mmol/L SODIUM 138 LAB K(LOINC) 3.5 - 5.3 mmol/L POTASSIUM 3.7 LAB CHLOR(LOIN 98 - 107 mmol/L C) Low CHLORIDE 96 LAB BIC(LOINC) 21 - 32 mmol/L BICARBONATE 31 LAB ANGAP(LOIN 10 - 20 mmol/L C) ANION GAP 15 LAB UREA(LOINC 6 - 23 mg/dL ) UREA High NITROGEN 25 LAB CREA(LOINC 0.50 - 1.30 mg/dL ) CREATININE 0.86 LAB GFRFN(LOIN >60 mL/min/1.7 C) 3m2 GFR-NON AM. >60 LAB GFRAA(LOIN >60 mL/min/1.7 C) 3m2 GFR- AM. >60 Result Comment: CALCULATIONS OF ESTIMATED GFR ARE PERFORMED USING THE MDRD STUDY EQUATION FOR THE IDMS-TRACEABLE CREATININE METHODS. CLIN CHEM 2007;53:766-72 LAB CA(LOINC) 8.6 - 10.6 mg/dL CALCIUM High 10.8 LAB ALB(LOINC) 3.4 - 5.0 g/dL ALBUMIN 4.3 LAB AP(LOINC) 33 - 136 U/L ALKALINE PHOSPHATASE 54 LAB TP(LOINC) 6.4 - 8.2 g/dL TOTAL PROTEIN 6.8 LAB AST(LOINC) 9 - 39 U/L AST 29 LAB TBILI(LOINC) 0.0 - 1.2 mg/dL BILIRUBIN,TOTAL 0.3 LAB ALT(LOINC) 10 - 52 U/L ALT 48 Result Comment: Patients treated with Sulfasalazine may generate falsely decreased results for ALT. Performed By: #### CMP #### [facility] [address] [place] [address] COAGULATION SCREEN Collected: 07/31/2017 Status: F Source: [place] 4:21 PM [facility]PITALS REPOSITORY TYPE CODE TESTS RESULT OUT OF REFERENCE UNITS RANGE LAB PT(LOINC) 9.8 - 12.7 sec PROTHROMBIN TIME 12.0 LAB INR(LOINC) 0.9 - 1.1 PT, INR 1.1 LAB APTT(LOINC 25 - 36 sec ) Low APTT 24 Result Comment: THE APTT IS NO LONGER USED FOR MONITORING UNFRACTIONATED HEPARIN THERAPY. FOR MONITORING HEPARIN THERAPY, USE THE HEPARIN ASSAY. Performed By: #### COAGS #### [facility] [address] [place] [address] PULMONARY VISIT REPORT Observed: 07/14/2017 Status: F Source: [place] 2:58 PM REPOSITORY [facility] [address] [place] [address] OFFICE VISIT Date of Service: 07/12/17 MR#: [id number] Acct: [id number] Name: SHADE TEIXEIRA Rep #: [id number] : 1955 Provider: Ariana Juarez Age/Sex: 61/M Location: [facility] Status: Signed Assessment AND Plan 1. FAVIAN (obstructive sleep apnea) G47.33 Status Chronic Plan He is using and benefiting from current BiPAP. No indication for titration study at this time. Continue current settings. Follow-up with Dr. Hawkins in 3 months. 2. Chronic respiratory failure with hypoxia J96.11 Status Chronic Plan Recent pulmonary stress test indicates that he does not require supplemental oxygen, however he does have a pulse oximeter and monitors his oxygen saturations. He reports that times he is below 89% and uses the supplemental oxygen during those times. Given his lack of Lasix, and his lower extremity edema it is more likely that he is in acute exacerbation of his CHF and in fact does require supplemental oxygen at this time. He is at high risk for requiring hospitalization due to not having many of his medications and will not likely happen for at least another 7-10 days. Discussed this with the patient. He conveys understanding. Also encouraged him to contact his primary care provider to see if he has any samples that can help him get through this difficult time. 3. MEANS (dyspnea on exertion) R06.09 Status Chronic Plan Continue to use submental oxygen as needed. No additional testing at this time. Follow-up with Dr. Hawkins in 3 months. Plan Detail Follow Up 3 Months ([facility] HPI 3 M FU: Chief Complaint: shortness of breath HPI Comments Details: This patient presents the office today to follow-up on his obstructive sleep apnea. He is ambulatory and currently on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 Positive external nose normal and no nasal discharge; negative epistaxis Mouth Mouth: Positive oral mucosae normal, no lesions, good dentition and crowded posterior oropharynx; negative post nasal drip, malodorous breath or oral thrush present Mallampati Score: III: Mallampati Score Neck Neck: Positive normal visual inspection, full ROM, trachea midline, thick neck and male neck greater than 43 cm (17 in); negative lymphadenopathy, JVD or tender Chest Wall Chest: Positive normal inspection of the chest and symmetric chest movement; negative increased A/P diameter Resp lung sounds: Positive diminished, dullness to percussion dullness: Yes bilateral, Yes lower, normal expiratory time and normal chronic state of increased work of breathing; negative wheezes, wheeze present on forced exhalation, rhonchi, rales or use of accessory muscles Cardio Cardiac: Positive regular rate, S1 normal, S2 normal and regular rhythm; negative murmur GI GI: Positive normal to inspection, normal bowel sounds and obese; negative distended or ascites Genitourinary: Positive deferred Musc Musculoskeletal: Positive steady gait and ROM normal; negative kyphosis or scoliosis Skin Pulmonary Skin Exam: Positive intact; negative rash, lesion, ulcers, erythema, scaly or dermal atrophy Pulses Pulse: Yes pulses normal x4 extremities Extremities Extremities: Yes edema Location: lower extremity location: Bilateral pitting +3, Yes capillary refill normal, No clubbing, No cyanosis, No stasis dermatitis Neuro Neurologic: Yes conversant, Yes no focal neuro deficits, Yes cooperative, Yes normal cognition, Yes normal coordination, Yes understands questions, Yes normal concentration Lymph Lymphatic: No lymphadenopathy, No tenderness, No cervical adenopathy, No axillary adenopathy Psych Appearance: Positive grossly normal, eye contact and well kempt Mental Status: Positive mental status grossly normal Mood: Positive congruent mood Affect: Positive normal affect Office Procedures Walking Oximetry Walking Oximetry Procedure performed by: Veronica Hayes Walking Oximetry: Yes walking oximetry preformed, desaturation below 89% occured, oxygen applied and no signs of distress prior to departing office Coding Level of Care Code Off vis,est,level 3 Diagnoses Chronic respiratory failure with hypoxia J96.11 06/22/17 1502 <Electronically signed by Ariana TEMPLE> Date Ariana TEMPLE Cosigner Signature: Date (if applicable) CC: Nicho Beth MD CBC W/DIFF, AUTOMATED Collected: 06/21/2017 Status: F Source: [place] 10:48 AM REPOSITORY TYPE CODE TESTS RESULT OUT OF RANGE REFERENCE UNITS LAB L100.1000 4.4-11.0 K/mm3 Normal WBC 8.2 LAB L100.1200 4.6-6.2 M/mm3 Normal RBC 5.22 LAB L100.1300 13.0-16.5 g/dl Low HGB 12.7 LAB L100.1400 40-54 % Normal HCT 42.6 LAB L100.1500 80-94 fL Normal MCV 81.6 LAB L100.1600 27.0-32.0 pg Low MCH 24.3 LAB L100.1700 32-36 g/gl Low MCHC 29.8 LAB L100.1810 11.6-14.6 % High RDW CV 18.9 LAB L100.1820 35.1-43.9 fl High RDW SD 55.8 LAB L100.1900 150-450 K/mm3 Normal PLT 366 LAB L100.2000 6.2-12.0 fl Normal MPV 9.5 LAB L100.2100 47-70 % Normal NEUT% 69.5 LAB L100.2200 19-41 % Low LY% 11.7 LAB L100.2300 0-10 % High MONO% 16.0 LAB L100.2400 0-5 % Normal EO% 2.1 LAB L100.2500 0-1 % Normal BASO% 0.6 LAB L100.2550 0.0-0.9 % Normal IM GRAN % 0.100 Result Comment: IG% - Immature Granulocytes (promyelocytes, myelocytes and metamyelocytes) > 1% indicates that a LEFT SHIFT is Present. LAB L100.2620 2.0-7.7 X10 3/uL Normal Absolute Neut 5.7 LAB L100.2720 0.83-4.51 X10 3/ul Normal Absolute Lymph 0.96 Performed By: #### L100.0100 #### [facility] [address] [place], [address] COMPREHENSIVE METABOLIC Collected: 06/21/2017 Status: F Source: [facility] 10:48 AM REPOSITORY TYPE CODE TESTS RESULT OUT OF RANGE REFERENCE UNITS LAB L501.0100 74-106 mg/dL Normal GLU 101 Result Comment: Fasting Glucose result from 100 to 125 mg/dL suggests IMPAIRED HOMEOSTASIS per A.D.A. criteria. Please note revised GLUCOSE reference range effective 2017. LAB L501.1000 7-18 mg/dL High BUN 26 LAB L501.1100 0.70-1.30 mg/dL Normal CREAT,SERUM 1.11 Result Comment: The validity of the calculated GFR AND GFRAA in patients over 70 years has not been determined. Clinical correlation is essential. LAB L501.1110 >60 mL/min Normal EST GFR 72 Result Comment: Non- GFR Calc LAB L501.1115 >60 mL/min Normal EST GFR - AA 87 Result Comment: GFR Calc LAB L501.1300 10-20 RATIO High BUN/CRE 23.4 LAB L501.1500 6.4-8.2 g/dL T Normal PROT 7.7 LAB L501.1800 3.2-5.0 g/dL Normal ALB 3.8 LAB L501.1950 2.2-4.2 g/dL Normal GLOB 3.9 LAB L501.2000 0.9-2.4 RATIO Normal A/G 1.0 LAB L501.2200 8.5-10.1 mg/dL High CA 10.5 LAB L501.4100 15-37 U/L High AST 50 LAB L501.4305 45-117 U/L Normal ALK P 65 LAB L501.4405 16-61 U/L High ALT 77 Result Comment: Please note revised ALT reference range effective 2017. LAB L501.4600 0.20-1.00 mg/dL Normal T BILI 0.40 LAB L501.5300 136-145 mmol/L Normal NA 137 LAB L501.5600 3.5-5.1 mmol/L Low K 3.0 LAB L501.5900 98-107 mmol/L Normal CL 98 LAB L501.6100 21.0-32.0 mmol/L Normal CO2 29.0 LAB L501.6200 5-15 Normal GAP 10 Performed By: #### L500.4050, L501.9520 #### [facility] [address] [facility] [place], [place], [address] THYROID STIM HORMONE Collected: 06/21/2017 Status: F Source: [facility] ([facility]) 10:48 AM REPOSITORY TYPE CODE TESTS RESULT OUT OF RANGE REFERENCE UNITS LAB L501.9520 0.358-3.74 uIU/mL Normal TSH 1.78 Performed By: #### L500.4050, L501.9520 #### [facility] [address] [facility] [facility] [place], [address] 6 MINUTE WALK TEST Observed: 06/20/2017 Status: F Source: [facility] 10:55 AM [facility] Pulmonary Services/Neurology [address] [place] [address] MR#: [id number] Acct: [id number] Name: SHADE TEIXEIRA Rep #: [id number] : 1955 61 From: Antonio Garcia DO Referring Dr: Ariana Juarez WIRE CHIEF Date: Ordering Dr: Sex: M C Location: PSN PSN 6 Minute Walk Test - 6 Minute Walk Test 6 Minute Walk Test: 6 Minute Walk Test PSN:6-Minute Walk Test Start: 06/20/17 07:38 Freq: Status: Active Protocol: [id number].[id number] [place] 06/20/17 07:24 [facility] [place]Rec[place] 06/20/17 07:41 [facility] [id number] 6 Minute Walk Test Date Performed 06/20/17 Time Performed 07:24 Height 5 ft 10 in Weight: 294 lb 6.548 oz Weight in Pounds 294.[address]: Ariana Juarez Assistive device used: None Pre-test Oxygen Delivery Method Room Air Pulse Ox (%) 96 Pulse Rate (60-100 beats/min) 78 Dyspnea Penelope Scale (0-10) 0.5 Exertion Penelope Scale (6-20) 6 1st minute Oxygen Delivery Method Room Air Pulse Ox (%) 92 Pulse Rate (60-100 beats/min) 90 Number of Rests Taken 0 2nd minute Oxygen Delivery Method Room Air Pulse Ox (%) 92 Pulse Rate (60-100 beats/min) 93 Number of Rests Taken 0 3rd minute Oxygen Delivery Method Room Air Pulse Ox (%) 98 Pulse Rate (60-100 beats/min) 96 Number of Rests Taken 0 4th minute Oxygen Delivery Method Room Air Pulse Ox (%) 91 Pulse Rate (60-100 beats/min) 98 Number of Rests Taken 1 Reported Symptoms Increased Work of Breathing 5th minute Oxygen Delivery Method Room Air Pulse Ox (%) 98 Pulse Rate (60-100 beats/min) 94 Number of Rests Taken 0 Reported Symptoms Increased Work of Breathing 6th minute Oxygen Delivery Method Room Air Pulse Ox (%) 97 Pulse Rate (60-100 beats/min) 93 Number of Rests Taken 0 Post-test Oxygen Delivery Method Room Air Pulse Ox (%) 98 Pulse Rate (60-100 beats/min) 76 Dyspnea Penelope Scale (0-10) 3 Exertion Penelope Scale (6-20) 12 Number of Rests Taken 0 Full Laps Walked 13 Partial Lap, Number of Tiles Walked 30 Total Distance Walked (ft) 797 - Interpretation Interpretation: The patient ambulate at 797 feet over the course of 6 minutes on room air without assistive devices or breaks. Pretesting oxygen saturation was noted to be 96% on room air. With ambulation, the geo oxygen saturation was 91%. This represents a significant exertional oxygen desaturation. - Recommendations Recommendations: There is no indication for the use of supplemental oxygen at this time. However, close interval follow-up is recommended given the degree of oxygen desaturation noted during this study. 06/20/17 1055 <Electronically signed by Antonio Garcia DO> Date Antonio Garcia DO CC: Date Dictated: 06/20/174 Date Transcribed: 06/20/171053 Director Counseling Bureau: Antonio Garcia DO Signed CARDIOLOGY VISIT Observed: 06/19/2017 Status: F Source: [place] REPORT 2:22 PM REPOSITORY [facility] [address] [place] [address]. [address] [place] [address] OFFICE VISIT Date of Service: 06/19/17 MR#: [id number] Acct: [id number] Name: SHADE TEIXEIRA Rep #: [id number] : 1955 Provider: Harinder Gracia MD Age/Sex: 61/M Location: [facility] [place] Status: Signed HPI HPI Chief Complaint: Routine f/u Details: HPI Reffering physician: Dr. Beth This is a 61-year-old morbidly obese white male who presents today for a cardiovascular follow up. He has a history of diabetes, hypertension, coronary artery disease, hypercholesterolemia, obstructive sleep apnea, pulmonary embolus in 2008. He has no family history of cardiac disease. As part of his previous cardiac workup he underwent a walking stress test on 12/15/14 which was submaximal but nonetheless had a hypertensive blood pressure response to exercise. It was at that time that Imdur was added. He had no chest pain symptoms, but did have some dynamic ST segment depression. His imaging study was negative.Underwent a diagnostic coronary angiogram which indicated he may have significant mid LAD and PDA disease. He underwent FFR evaluation at [facility] on 01/21/15. At [facility] his FFR of his LAD was found to be 0.88, and his FFR of his PDA was found to be 0.99. No intervention was performed. patient was found to be profoundly hypertensive,requiring a nitroglycerin drip. In 11/2015 patient has a stress echocardiogram which was abnormal and demonstrated an estimated ejection fraction is 65 %, Positive for ischemia by ECG criteria. He developed [address] depression along infero/lateral leads during exercise which resolved by 7:50 in to recovery. No associated wall motion abnormalities. No anginal symptoms noted. Rare PVC noted. The test terminated due to dyspnea and difficulty keeping up with treadmill. Appropriate BP response to exericse. Final LVEF=75%. Patient had continued chest pain, and was referred for angioplasty of the LAD. On 05/11/16, he underwent elective angioplasty and drug-eluting stenting. Patient had minimal disease of his left circumflex, RCA and PDA. During his previous office visit, his Imdur was decreased due to lightheadedness and his cardiac rehab was placed on hold due to orthostatic hypotension as well. His metolazone was also decreased to and Sundays as well. The patient states that since being stented, his chest pain and shortness of breath has significantly improved, however he still notes dyspnea on exertion and midsternal chest discomfort at times with exertion, but the frequency has decreased, And the quality of this chest pain is different than his previous angina. Patient is a chronic O2 therapy now, and has not participated in cardiac rehab due to history of hypertension. He denies any lightheadedness, dizziness, presyncope or syncope. He is taking and tolerating his medicines well. 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 Apparently the patient unbeknownst office was admitted for observation for fluid overload after his metolazone was held due to dehydration by 1 of our [employer]'s. This caused him to have fluid accumulation, acute heart failure requiring IV diuretic therapy. This occurred while I was out of town. Subsequent to that he went to for his surgery, and due to this recent admission his anesthesiologist postpone his surgery. Immediately prior to this in January 2017 he underwent a dobutamine stress echo which was negative for inducible ischemia. A new surgical date has not yet been obtained. Since his discharge from , he denies any chest pain, angina, and reports that his dyspnea on exertion is much better. He was on Lasix 80 mg p.o. twice daily for 3 days followed by 40 mg twice daily currently. In addition he is taking metolazone 2 times a week on Monday and . He denies any anginal symptoms. In our office today his blood pressure is 88/48, and pulse is 70 and regular. He has very distant breath sounds bilaterally, he has trace to 1+ bilateral lower extremity edema which is stable. His lipids as of 05/12/16 show an LDL of 24 and HDL of 23. Lipids dated 02/02/17 showed LDL of 63 and HDL 24. He is on chronic O2 therapy. Intake Vital Signs06/19/17 Height 5 ft 9 in Intake Visit Reasons: 6 M FU Allergies No Known Allergies Allergy (Verified 06/19/17 13:54) Medications Amlodipine [Norvasc] 10 mg PO DAILY 01/07/15 [History Confirmed 06/10/17] Aspirin [Aspirin, Baby] 81 mg PO DAILY@0800 01/07/15 [History Confirmed 06/10/17] Atorvastatin Calcium [Lipitor] 80 mg PO QHS 01/07/15 [History Confirmed 06/10/17] Furosemide [Lasix] 40 mg PO BID 01/07/15 [History Confirmed 06/10/17] Glimepiride [Amaryl] 4 mg PO BID 01/07/15 [History Confirmed 06/10/17] HydrALAZINE [Apresoline] 25 mg PO TID 01/07/15 [History Confirmed 06/10/17] Metformin HCl [Glucophage] 1,000 mg PO BIDCM 01/07/15 [History Confirmed 06/10/17] Metoprolol(XL)Succ [Toprol Xl (Beta Robinson)] 100 mg PO BID 01/07/15 [History Confirmed 06/10/17] Multivitamins,Therapeutic [Multivitamin] 1 tab PO DAILY 05/10/16 [History Confirmed 06/10/17] metolazone 2.5 mg tablet 2.5 mg PO SUTH 05/10/16 [History Confirmed 06/10/17] Albuterol IH (ProAir) [Proair Hfa] 2 puff INHALATION Q4H PRN PRN 01/18/17 [History Confirmed 06/10/17] Gemfibrozil [Lopid] 600 mg PO BIDAC 01/18/17 [History Confirmed 06/10/17] Lorazepam [Ativan] 0.5 mg PO DAILY PRN PRN 01/18/17 [History Confirmed 06/10/17] Paroxetine HCl [Paxil] 40 mg PO QHS 01/18/17 [History Confirmed 06/10/17] Ranolazine [Ranexa] 500 mg PO BID 01/18/17 [History Confirmed 06/10/17] Nitroglycerin [Nitrostat] 0.4 mg SUBLINGUAL Q5M PRN #10 tab 01/19/17 [Rx Confirmed 06/10/17] Oxymetazoline 0.05% [Afrin (BKC)] 1 spray NASAL BID #1 spray.btl 02/05/17 [Rx Confirmed 06/10/17] Sodium Chloride [Saline Nasal Mist] 1 spray NS TID #2 mist 02/05/17 [Rx Confirmed 06/10/17] clopidogrel 75 mg tablet 75 mg PO DAILY #90 tab 05/09/17 [Rx Confirmed 06/10/17] potassium chloride ER 20 mEq tablet,extended release 40 meq PO TID tab 06/06/17 [History Confirmed 06/10/17] Citalopram Hydrobromide [Citalopram HBr] 20 mg PO DAILY 06/10/17 [History Confirmed 06/10/17] Dapagliflozin Propanediol [Farxiga] 10 mg PO DAILY 06/10/17 [History Confirmed 06/10/17] Insulin Regular, Human [Humulin R U-500 Kwikpen] 200 unit SQ BID 06/10/17 [History Confirmed 06/10/17] Sodium Chloride 0.65% [Cannon Nasal [place]] 1 spray NASAL PRN PRN 06/10/17 [History Confirmed 06/10/17] PFSH Medical History Atherosclerosis of coronary artery of [place] heart without angina pectoris (Chronic) FAVIAN (obstructive sleep apnea) (Chronic) Dyspnea on exertion (Chronic) Acquired left ventricular hypertrophy (Chronic) Abnormal chest xray (Chronic) Chest discomfort (Chronic) Near syncope (Chronic) Overweight (Chronic) Hypoxia (Chronic) Hypertriglyceridemia (Chronic) Morbid obesity with BMI of 40.0-44.9, adult (Chronic) Epistaxis (Acute) Type 2 diabetes mellitus (Chronic) Hypertension (Chronic) Hyperlipidemia (Chronic) History of DVT (deep vein thrombosis) (Chronic) Osteoarthritis (Chronic) History of pulmonary embolism (Resolved) Surgical History History of coronary artery stent placement (Chronic 05/11/16) Family History Mother Colon cancer Social History Smoking Status: Never smoker second hand exposure: No alcohol intake: never substance use type: does not use caffeine: Yes (1/day) what type of physical activity do you participate in: none ROS Const Const: Negative for fatigue, weakness, difficulty sleeping, frequent falls, headache(s) or excessive sweating Eyes Eyes: Negative for loss of peripheral vision, transient loss of vision, blurry vision or double vision ENT ENT: Negative for headache(s), dizziness, Nosebleed/epistaxis or balance problems Cardio Chest Pain: No Edema: None, Bilateral (BLE non pitting edema L>R) Muscle aches with walking: None Resp Respiratory: Positive for SOB with activity (SOB if walking long distance); negative for SOB at rest, SOB orthopnea\SOB lying down or paroxysmal nocturnal dyspnea Additional Details: 3L continuous O2 and CPAP at night GI GI: Negative nausea or heartburn : Negative for hematuria Musc Musc: Negative for muscle aches/ myalgia, muscle weakness, joint pain or balance problems Skin Skin: Negative non-healing lesions, unusual bruising or rash Neuro Neuro: Negative for weakness, frequent falls, blurry vision, headache(s), dizziness, lightheadedness, orthostatic symptoms or double vision Brett Hematologic/Lymphatic: Negative for easy bruising Endo Endo: Negative for fatigue, excessive sweating or increased thirst/drinking Psych Psych: Negative for anxiety or depression Allergy Allergy/Immunology: Negative for hives, Negative for rash Cardiology Exam Const Appearance: cooperative, healthy appearing and no acute distress Nutritional Appearance: well nourished Orientation: alert, oriented x3 and oriented to person Head Head: normal to inspection, atraumatic and normocephalic Nose: external nose normal Face and Sinus: face symmetric Mouth: oral mucosae normal Eyes General: appearance normal, both eyes and all related structures Eyelids: eyelids normal Conjunctivae: conjunctivae normal Pupils: PERRL and normal by confrontation EOM: EOM intact bilaterally Neck Neck: normal visual inspection and full ROM Carotids: normal carotid upstroke Chest Chest inspection: normal inspection of the chest Auscultation: Bilateral: Clear to Auscultation Cardio Palpation: normal PMI Rate: regular rate Rhythm: regular rhythm Heart sounds: S1 normal and S2 normal GI GI: normal to inspection, no hepatosplenomegaly and bowel sounds present Neuro General: alert, oriented x3, awake, CN's II-XI intact bilaterally and moves all extremities Skin Skin: no rashes or lesions noted Extremities Pulses: Normal: Right Femoral Pulse, Left Femoral Pulse, Right Dorsalis Pedis Pulse, Left Dorsalis Pedis Pulse, Right Posterior Tibial Pulse, Left Posterior Tibial Pulse, Right Radial Pulse, Left Radial Pulse Lower Extremity Edema: None: Bilateral Psych Psychological: normal affect Assessment AND Plan 1. Atherosclerosis of coronary artery of [place] heart without angina pectoris I25.10 PCI-Mid LAD 3.0 x 16 mm Promus [employer] DANIEL Plan 1. Coronary artery disease: No exertional anginal symptoms at this time. The patient's CHF exacerbation recently was due to holding his biweekly metolazone, requiring him to be readmitted with IV diuretic therapy. His most recent debridement echocardiogram in January 2017 was negative for inducible ischemia, and other than discontinuation of his metolazone he has had no interim change of his symptoms. I do not believe the patient requires any repeat catheterization at this time. He has no anginal symptoms whatsoever. 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 I recommend he continue his baby aspirin through the surgery and Plavix at least until 5 days up into his surgery. In addition I recommend he continue his Lasix 40 mg p.o. twice daily, metolazone 2.5 mg q. Monday and , Ranexa, hydralazine as well as metoprolol 100 mg p.o. twice daily. Do not believe the patient requires Imdur at this time as he has no anginal symptoms and he is relatively hypotensive. At this point the patient is at moderate risk for noncardiac surgery, and would recommend judicious use of IV fluids to avoid fluid overload. Recommend managing his eyes and nose perioperatively. Would recommend restarting his Plavix once his surgical wounds have completely healed. 2. Chronic hypoxemic respiratory failure J96.11 Plan 2. Chronic hypoxemic respiratory failure: Patient is status post pulmonary embolism, and has mild COPD. He is on chronic O2 therapy. Continue present management. 3. Hyperlipidemia, unspecified hyperlipidemia type E78.5 Plan 3. Hyperlipidemia: His LDL and HDL cholesterol are at goal. Continue Lipitor. 4. Return office in 4 months. This note was generated using a voice recognition system and there may be incorrect words, spelling or punctuation that were not noted when reviewing the office note prior to saving. Plan Detail Follow Up 4 Months (Basil or PABLO) Coding Level of Care Code Off vis,est,level 3 Diagnoses Atherosclerosis of coronary artery of [place] heart without angina pectoris I25.10 Chronic hypoxemic respiratory failure J96.11 Hyperlipidemia, unspecified hyperlipidemia type E78.5 Coding Level of Care Code Off vis,est,level 3 Diagnoses Atherosclerosis of coronary artery of [place] heart without angina pectoris I25.10 Chronic hypoxemic respiratory failure J96.11 Hyperlipidemia, unspecified hyperlipidemia type E78.5 06/19/17 1422 <Electronically signed by Harinder Gracia MD> Date Harinder Gracia MD [facility] Signature: Date (if applicable) CC: PROVIDER NOTE - ED Observed: 06/15/2017 Status: COMPLETED Source: [place] 8:48 AM HOSPITALS REPOSITORY Time Seen: ? Time Seen 15-Jun-2017 08:19 Triage Vital Signs: ? Triage Information Most recent Vital Sign Value Date Heart Rate (beats/min): 77 06-15-2017 08:31 Respirations (breaths/min): 17 06-15-2017 08:31 BP Systolic (mm Hg): 109 06-15-2017 08:31 BP Diastolic (mm Hg): 66 06-15-2017 08:31 History of Present Illness: This 61 year old Male presents with complaint(s) of other and increased oxygen requirement(1)Sent from pre-op area for increased oxygen requirement(1) ? Historian patient History of Presenting Illness - Additional: ? Complaint This is a 61-year-old male with a history of CHF, CAD, hypertension, diabetes, hyperlipidemia, and cardiac stent ?2. 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 Upon assessment of patient patient has no complaints. Patient is denying any chest pain or shortness of breath. Patient states that he is at his baseline and that he feels fine. Patient states that he wears supplemental oxygen as needed at home and that that has been improving since eating treated for a CHF exacerbation. Patient is denying any recent weight gain or edema. PMH: Hypertension, diabetes, CHF, FAVAIN, depression, anxiety, hyperlipidemia PSH: Bilateral hip replacement, cardiac stent ?2 Meds: reviewed with pt and in printed chart Significant Events: ? abdominal surgery: Past Surgical History, Active ? fissure repair: Past Surgical History, Active ? bilat hip replacements: Past Surgical History, Active ? Pe.>10 yrs ago: Past Medical History, Active ? previous smoker: Past Medical History, Active ? hx etoh: Past Medical History, Active ? anxiety: Past Medical History, Active ? chf: Past Medical History, Active ? copd: Past Medical History, Active ? mi with stent: Past Medical History, Active ? anemia: Past Medical History, Active ? gerd: Past Medical History, Active ? favian wears cpap at home: Past Medical History, Active ? afib: Past Medical History, Active ? dm: Past Medical History, Active Allergy, Intolerance, Adverse Event: Allergies: ? No Known Allergies: Active Outpatient Medication, Review/Add Medications: * Patient Currently Takes Medications as of 15-Jun-2017 07:08 documented in Structured Notes ? amLODIPine 10 mg oral tablet: Last Modified Date/Time: 15-Jun-2017 07:08 ? aspirin 81 mg oral tablet: Last Modified Date/Time: 15-Jun-2017 07:08 ? Lipitor 40 mg oral tablet: Last Modified Date/Time: 15-Jun-2017 07:08 ? Plavix 75 mg oral tablet: Last Modified Date/Time: 15-Jun-2017 07:08 ? Lasix 40 mg oral tablet: Last Modified Date/Time: 15-Jun-2017 07:08 ? glimepiride 4 mg oral tablet: Last Modified Date/Time: 15-Jun-2017 07:08 ? hydrALAZINE 25 mg oral tablet: Last Modified Date/Time: 15-Jun-2017 07:08 ? metFORMIN 1000 mg oral tablet: Last Modified Date/Time: 15-Jun-2017 07:08 ? Metoprolol Succinate ER 100 mg oral tablet, extended release: Last Modified Date/Time: 15-Jun-2017 07:08 ? potassium chloride: Last Modified Date/Time: 15-Jun-2017 07:08 ? metOLazone 2.5 mg oral tablet: Last Modified Date/Time: 15-Jun-2017 07:08 ? multivitamin: Last Modified Date/Time: 15-Jun-2017 07:08 ? naproxen sodium 220 mg oral capsule: Last Modified Date/Time: 15-Jun-2017 07:08 ? diphenhydrAMINE 25 mg oral capsule: Last Modified Date/Time: 15-Jun-2017 07:08 ? albuterol: Last Modified Date/Time: 15-Jun-2017 07:08 ? Flonase: Last Modified Date/Time: 15-Jun-2017 07:08 ? gemfibrozil 600 mg oral tablet: Last Modified Date/Time: 15-Jun-2017 07:08 ? HumuLIN R: Last Modified Date/Time: 15-Jun-2017 07:08 ? LORazepam 0.5 mg oral tablet: Last Modified Date/Time: 15-Jun-2017 07:08 ? ranolazine 500 mg oral tablet, extended release: Last Modified Date/Time: 15-Jun-2017 07:08 ? nitroglycerin 0.4 mg sublingual tablet: Last Modified Date/Time: 15-Jun-2017 07:08 ? PARoxetine 40 mg oral tablet: Last Modified Date/Time: 13-Jun-2017 13:18 Social History: denies smoking, alcohol and drug use HISTORY ATTESTATION: ? Attestation I have reviewed and confirmed nurse's/medic's notes for patient's medications, allergies, medical history, and surgical history Review of Systems: ? All Other Systems all other systems reviewed and are negative ? Constitutional negative: chills, fever, malaise/fatigue ? Cardiovascular negative: chest pain, diaphoresis, edema, palpitation, tachycardia ? Respiratory negative: cough, dyspnea, wheezing ? Gastrointestinal negative: abdominal pain, constipation, diarrhea, nausea, vomiting ? Neurological negative: dizziness, headache, loss of function Vital Signs: ? Objective Information T P R BP SpO2 O2(LPM) %FiO2 Method 15-Jun-2017 08:31:00- 77 17 109/66 supplemental O2 PHYSICAL EXAM: ? Physical Examination: Physical Exam: Appearance: Alert, oriented , cooperative, in no acute distress. Well nourished & well hydrated. Skin: Intact, dry skin, no lesions, rash, petechiae or purpura. Eyes: PERRLA, Conjunctiva pink with no redness or exudates. Eyelids without lesions. No scleral icterus. ENT: Hearing grossly intact. Nares patent, mucus membranes moist. Dentition without lesions. Pharynx clear, uvula midline. Neck: Supple, without meningismus. Thyroid not palpable. Trachea at midline. No lymphadenopathy. Pulmonary: Clear bilaterally with good chest wall excursion. No rales, rhonchi or wheezing. No accessory muscle use or stridor. Cardiac: Normal S1, S2 without murmur, rub, gallop or extrasystole. No JVD, Carotids without bruits. Abdomen: Soft, nontender, active bowel sounds. No palpable organomegaly. No rebound or guarding. No CVA tenderness. Genitourinary: Exam deferred. Musculoskeletal: Extremities warm and well perfused, pulses full and equal bilaterally, sensation intact no edema or deformity noted. Neurological: normal sensation, no weakness, no focal findings identified. Psychiatric: Appropriate mood and affect. Medical Decision Making: ? Discussed Clinical and Radiological Findings With patient ? Data Reviewed old records, vital signs, nurses notes ? Diagnosis Counseling I had a detailed discussion with the patient and/or guardian regarding the historical points, exam findings, and any diagnostic results supporting the discharge/admit diagnosis. ? Conducted a Detailed Discussion with Patient and/or Guardian Regarding need for outpatient follow-up, return to ED if symptoms worsen, persist or questions arise ? ED Course/Treatment Plan Patient has remained clinically stable in the emergency department. Patient was evaluated after being sent from [facility] for cardiac risk stratification. Preop concern due to the fact that patient has been off of his Plavix and aspirin for the past month with a stent placement approximately one year ago any recent hospital admission for CHF exacerbation. The patient presentation and plan of care was discussed with Dr. Almeida who was supposed to perform the ENT surgery. Dr. Almeida was concerned that the patient could have a possible cardiac event and therefore anesthesia was not comfortable performing surgery today. Dr. Almeida states he tried to admit the patient directly but was unable to and was therefore sent to the emergency room for further evaluation. At the current time patient has no chest pain, shortness of breath, recent weight gain or edema. Patient has no complaints and states that he is at his baseline and feels better since his recent admission to the hospital. Patient's physical exam with clear lung sounds and regular heart rate and rhythm. Based on patient's symptoms and physical exam there is no further testing that needs to be done at this time. Patient was educated to restart taking his aspirin and his Plavix as prescribed and to follow-up with his management coordinator as soon as possible and to call today for further cardiac risk stratification prior to having surgery. Patient verbalized understanding and is agreeable to plan of care. Patient advised to return to emergency room if he does develop any chest pain or shortness of breath or any new symptoms. Diagnoses/Visit Problems: ? Cardiac risk counseling: DISCHARGE DISPOSITION: ? Disposition: discharged ? Discharge Type: home CONDITION ON DISPO: ? Condition on Disposition stable MEDICATION RECONCILIATION/DISCHARGE MEDS: * Outpatient Medication Status not yet specified Attestation: CRITICAL CARE: ? Is This a Critically Ill Patient no Co-Sign/Attestation: Attestation: This is a shared visit. I have reviewed the LIP?s encounter note, approve the LIP?s documentation and provide the following additional information from my personal encounter. Shared Visit Documentation: See comments/additional findings below Comments/ Additional Findings: Patient says he is in his usual state of health. He has had no chest pain or shortness of breath since his recent hospitalization and says he has actually been using his supplemental oxygen left at home then usually would. I discussed the patient's presentation with Dr. Almeida. He says he was concerned the patient has had another cardiac event and that anesthesia was not comfortable performing anesthesia for his surgical case today. He had tried to admit the patient to the hospital directly but was unsuccessful in doing so. As the patient has no symptoms of chest pain or shortness of breath at this time and feels quite well I do not think he would benefit from hospitalization admission and would actually be exposed to undo risk. We will encourage him to restart his cardiac medications and follow-up with his management coordinator for further operative planning and cardiac risk medication. Electronic Signatures: Jaret Mcdonough (DO) (Signed 15-Jun-2017 15:53) Authored: Attestation Co-Signer: Time Seen / ED Notes, Triage Vital Signs, History of Present Illness, Patient History, History Attestation, ROS, Vital Signs, Physical Exam, Medical Decision Making, ED Disposition (REQUIRED), Attestation Priya Velazco (CREDENTIALING MANAGER-SQL SERVER DBA DEVELOPER) (Signed 15-Jun-2017 09:50) Authored: Time Seen / ED Notes, Triage Vital Signs, History of Present Illness, Patient History, History Attestation, ROS, Vital Signs, Physical Exam, Medical Decision Making, ED Disposition (REQUIRED), Attestation Last Updated: 15-Jun-2017 15:53 by Jaret Mcdonough (DO) References: 1. Data Referenced From Triage - ED 06/15/2017 8:31 AM TRIAGE - ED Observed: 06/15/2017 Status: [employer] Source: [place] 8:31 AM HOSPITALS REPOSITORY Quick Triage: The patient and/or guardian verbally acknowledges placement for services into the following (when Urgent Care Service hours are operating): emergency department Chart Review: CHIEF COMPLAINT SHADE TEIXEIRA is a Male patient with a chief complaint of other (increased oxygen requirement). Other Complaints: Sent from pre-op area for increased oxygen requirement Triage Date/Time: 15-Jun-2017 08:31 Vital Signs: Temperature: F ( C) taken temporal Blood Pressure: 109/66 Mean: Heart Rate: 77 Respiratory Rate: 17 on supplemental O2. Height: 5 feet 10.00 inches. 177.8 CM Weight: 289.0 pounds. Calculated 131.0 kg. (stated) Calculated BMI (kg/m2): 41.438 Calculated BSA (m2) 2.54 Cough lasting greater than 3 weeks: no Travel outside of [place]: no Allergies: no Mask applied: no Patient has suicidal thoughts: no Patient has homicidal thoughts: no ANTONINA: 3 Symptoms Are Negative For: anxiety, chills, diaphoresis, dyspnea, headache, loss of consciousness, nausea, numbness, tingling and weakness PAIN Pain Scale Used: CATHERINE ARRIVAL INFORMATION Means of Arrival: stretcher Mode of Arrival: transportation service (Pre-op staff) Arrival From: home Accompanied By: self Language: Spoken Language Preferred: [place] Reading Language Preferred: [place] Commercial Coordinator Requested: no language interpreter was requested PRIMARY ASSESSMENT SHADE TEIXEIRA's primary assessment is Within Normal Limits. The airway is open and patent. Breathing spontaneous and unlabored with clear breath sounds bilaterally. Circulation is normal with good peripheral pulses. Skin is warm and dry and color is normal for race. TRAVEL HISTORY Travel Exposure History: NO travel to International locations in the past 30 days Past Medical History: ? Past Medical History Reviewed yes Electronic Signatures: Velma Patel (RN) (Signed 15-Jun-2017 08:39) Authored: Triage, Past Medical History Last Updated: 15-Jun-2017 08:39 by Velma Patel (CLARITA) HISTORY AND PHYSICAL Observed: 06/15/2017 Status: COMPLETED Source: [facility] SURGICAL UPDATE < 7:23 AM HOSPITALS REPOSITORY 30 DAYS History & Physical Reviewed: I have reviewed the History and Physical dated: 12-Jun-2017 History and Physical reviewed and relevant findings noted. Patient examined to review pertinent physical findings.: Significant findings noted below Findings: Patient was recently hospitalized with CHF exacerbation requiring IV Lasix for diuresis. Patient reportedly was cancelled last month but did not restart his Plavix nor ASA. Patient only took ASA yesterday. Patient has a stent from roughly one year ago. Home Medications Reviewed: changes noted as above Allergies Reviewed: no changes noted This patient has been seen and discussed with the attending physician responsible for performing the procedure: yes Signatures/Attestation/Certification: Attending Attestation I saw and evaluated the patient. I personally obtained the hernandez and critical portions of the history and physical exam or was physically present for hernandez and critical portions performed by the resident/fellow. I reviewed the resident/fellow?s documentation and discussed the patient with the resident/fellow. I agree with the resident/fellow?s medical decision making as documented in the resident?s note. I personally evaluated the patient (as noted in the above attestation) on 15-Jun-2017 Attending Provider ? Inpatient Certification Statement N/A - observation patient/other outpatient visits Electronic Signatures: Fernando Garcia ( (Resident)) (Signed 15-Jun-2017 07:25) Authored: History & Physical Reviewed, Signatures/Attestation/Certification Eduardo Almeida) (Signed 16-Jun-2017 09:05) Authored: Signatures/Attestation/Certification Co-Signer: History & Physical Reviewed, Signatures/Attestation/Certification Last Updated: 16-Jun-2017 09:05 by Eduardo Almeida) GLUCOSE-POCT Collected: 06/15/2017 Status: F Source: [place] 6:50 AM HOSPITALS REPOSITORY TYPE CODE TESTS RESULT OUT OF RANGE REFERENCE UNITS LAB GLUP(LOINC) 74 - 99 mg/dL High 217 GLUCOSE-POCT Performed By: #### GLUPO #### [facility] [address] [place] [address] PREOP CHECKLIST Observed: 06/15/2017 Status: UNK Source: [place] 6:25 AM HOSPITALS REPOSITORY Preop Checklist: Preop Checklist: ? Arrival Date 15-Jun-2017 ? NPO Status 15-Jun-2017 00:00 ? ID Band On yes ? Allergy Band no known allergies ? Consent Signed pending ? H&P Complete pending ? Anesthesia Assessment Completed pending ? EKG Performed see results tab ? Chest X-Ray Performed see results tab ? Chlorhexadine Bath Given not applicable ? Soap and water bath with hair shampoo the night before surgery not applicable ? SCD's Applied yes ? RASHEEDA Hose Applied yes ? Dentures not applicable ? Prosthetics not applicable ? Hearing Aids not applicable ? Valuables Secured sent with family wallet given to friend maeve ? Glasses / Contacts not applicable ? Bowel Prep no Cardiovascular Assessment: ? Apical regular ? Radial Pulses palpable ? Pedal Pulses palpable ? Extremities warm Respiratory Assessment: ? Respirations regular ? Air Exchange equal ? Breath Sounds clear Neurological Assessment: ? Level of Consciousness alert ? Mobility moves all extremities ? Able to Express Self yes ? Age Appropriate yes ? Emotional Status calm Preop Education: ? Surgical Site Infection Prevention yes ? Pain Scales and Management yes Language / Communication: ? Language / Communication [place] Electronic Signatures: Erma Mendez) (Signed 15-Jun-2017 06:58) Authored: Preop Checklist Last Updated: 15-Jun-2017 06:58 by Erma Mendez (CLARITA) PROTHROMBIN TIME W/INR Collected: 06/14/2017 Status: F Source: [place] 4:41 PM REPOSITORY TYPE CODE TESTS RESULT OUT OF RANGE REFERENCE UNITS LAB L300.4150 11.7-14.9 SECONDS Normal PROTIME 13.4 LAB L300.4200 Normal INR 1.0 Performed By: #### L300.3900, L300.4310 #### [facility] [address] [place], [address] PARTIAL THROMBOPLAST Collected: 06/14/2017 Status: F Source: [place] TIME 4:41 PM REPOSITORY TYPE CODE TESTS RESULT OUT OF RANGE REFERENCE UNITS LAB L300.4310 24.1-36.2 Seconds Normal PTT 27.0 Performed By: #### L300.3900, L300.4310 #### [facility] [address] [place], [address] 12 LEAD ELECTROCARDIOGRAM Observed: 06/14/2017 Status: F Source: [place] 1:46 PM REPOSITORY [facility] Cardiovascular Services [address] [place] [address] 12 Lead EKG 06/11/17 0417 MR#: [id number] Acct: [id number] Name: SHADE TEIXEIRA Rep #: [id number] : 1955 61 From: Robb Hua MD Attending Dr: Mary Gregory Status: DIS ZARIA Ordering Dr: Roselia Gregory DO Date: 06/11/17 Location: [facility] Sex: M C Admitted: 06/10/17 Test Reason : AM EKG Blood Pressure : / mmHG Vent. Rate : 073 BPM Atrial Rate : 073 BPM P-R Int : 228 ms QRS Dur : 094 ms QT Int : 382 ms P-R-T Axes : 052 038 038 degrees QTc Int : 420 ms Sinus rhythm with 1st degree A-V block with occasional Premature ventricular complexes Septal infarct , age undetermined Abnormal ECG When compared with ECG of 10-JUN-2017 11:39, MANUAL COMPARISON REQUIRED, DATA IS UNCONFIRMED Confirmed by MELITA PIZANO, ROBB ([id number]), social media editor PRAVEEN CAMPBELL ([id number]) on 06/14/2017 1:45:38 PM Referred By: BRI Confirmed By:ROBB HUA MD 06/14/17 1345 Date Robb Hua MD CC: Mary Gregory; Nicho Beth MD Signed DISCHARGE SUMMARY Observed: 06/14/2017 Status: F Source: [place] 10:19 AM REPOSITORY [facility] Medical Records Department [address] [place] [address] Discharge Summary 06/11/17 1323 MR#: [id number] Acct: [id number] Name: SHADE TEIXEIRA Rep #: [id number] : 1955 61 From: Veronica Lion NP-C PCP: Nicho Beth MD, Chi Status: DIS ZARIA Y Location: [place] [address] ADDENDUM by Mary Gregory on 06/14/17 at 1018 Code Visit Pt is a 61 YO male admitted to the hospital with c/o chest pain, SOB and a 15 lb weight gain in the preceding 2 weeks. BNP was 116. EKG showed no evidence of ischemia. He was seen independently and in conjunction with Veronica Lion NP. He was started on IV Lasix at admission and serial cardiac enzymes were ordered. Urine OP was 4,020 and he felt much better. Serial cardiac enzymes were negative and telemetry showed no significant ectopy and no dysrhythmia. On 06/11 he felt well enough to go home and he has a surgery to remove nasal polyps Monday so he was discharged. Lasix was increased to 80 mg BID for 3 days and then he will resume 40 mg BID. Salt restriction was advised. He will follow up in the [facility] office in 1 week. At the time of Dc the Lungs were diminished but CTA. The heart had a RRR without gallop. He still had pitting edema of the LE's but it was improved. OBSV E AND M: [id number] Observation care discharge 06/14/17 1019 <Electronically signed by Roselia Gregory DO> Date Roselia Gregory DO cc: MAVERICK Lion; Mary Gregory; Nicho Beth MD * Signed Discharge Date and Diagnosis Date of Admission: 06/10/17 Date of Discharge: 06/11/17 - Primary Discharge Diagnosis 1. Acute on chronic diastolic CHF - Secondary Discharge Diagnosis Chronic Problems (Last Reviewed 04/12/17 @ 14:09 by Phuong Rankin) Chronic hypoxemic respiratory failure (Chronic) FAVIAN (obstructive sleep apnea) (Chronic) Dyspnea on exertion (Chronic) Acquired left ventricular hypertrophy (Chronic) Abnormal chest xray (Chronic) Chest discomfort (Chronic) Near syncope (Chronic) Overweight (Chronic) Hypoxia (Chronic) Hypertriglyceridemia (Chronic) Morbid obesity with BMI of 40.0-44.9, adult (Chronic) Status post insertion of drug-eluting stent into left anterior descending (LAD) artery (Chronic) CAD (coronary artery disease), [place] coronary artery (Chronic) Type 2 diabetes mellitus (Chronic) Hypertension (Chronic) Hyperlipidemia (Chronic) History of DVT (deep vein thrombosis) (Chronic) Osteoarthritis (Chronic) Hospital Course and Treatment Imaging Results: Diagnostic Data Chest X-Ray 06/10/17 11:59 IMPRESSION: Mild cardiomegaly and pulmonary congestion. Electronically Signed: Susan Campbell MD at 12:38 EST , Service support , Operations: None Procedures: None Summary of Care Provided: Patient is a 61-year-old male admitted 06/10/2017 due to shortness of breath, chest tightness. He has a past medical history of DVT/PE, osteoarthritis, hyperlipidemia, hypertension, type 2 diabetes mellitus, CAD status post PCI, morbid obesity, chronic hypoxic respiratory failure secondary to restrictive lung disease requiring intermittent home oxygen supplementation, obstructive sleep apnea, depression. Patient follows with Dr. Hawkins for FAVIAN/restrictive lung disease. 1. Acute on chronic diastolic CHF- Echocardiogram 09/30/2015 showed an EF of 65%, stage I diastolic dysfunction, RVSP 22 mmHg. Recommend repeat echocardiogram as outpatient by cardiology. Troponin negative. BNP only mildly elevated, 116. CXR showed mild pulmonary congestion. Lower extremity edema improved. Patient denies further shortness of breath. Stable on room air at discharge however patient has oxygen at home available. He is to continue supplemental oxygen as needed to maintain O2 at or above 90%. He is down approximately 9 pounds since admission with IV Lasix. EKG on admission without evidence of ischemia. Patient will increase home Lasix to 80 mg twice daily for 3 days. He will then resume home regimen of 40 mg twice daily. He will follow- up with Dr. Gracia or Stephanie Schultz following his surgery, in approximately 1 week. Patient is to undergo sinus mass biopsy tomorrow, 06/12/2017. He is in to have further surgical intervention 06/15/17. 2. CAD status post PCI to the mid LAD May [address] Gracia. Patient follows with Dr. Gracia as outpatient. Continue aspirin, statin, beta-robinson. Patient recently stopped Plavix due to plans for sinus intervention surgery next week. Per patient, Dr. Gracia aware of temporarily being off of plavix. Patient had a stress echo 01/18/2017 which showed no evidence of ischemia. Patient will resume Plavix as soon as possible when cleared by surgery. 3. Type 2 diabetes mellitus-Hemoglobin A1c 02/02/2017 was 8.7%. Resume home oral regimen and he will and are at discharge. 4. Hypertension-stable, continue current regimen including amlodipine, Lasix, metoprolol. 5. Hyperlipidemia-continue atorvastatin and gemfibrozil. 6. History of PE/DVT-previously on Coumadin therapy which was discontinued January, due to significant epistaxis. Continue aspirin, Plavix. 7. Restrictive lung disease/FAVIAN/Chronic hypoxic respiratory failure-follows with Dr. Hawkins. PFTs 10/2016. On supplemental oxygen intermittently at home. Patient has not recently been using CPAP due to current sinus issues. Recommend continued outpatient follow-up with pulmonary medicine and resuming CPAP as soon as able. 8. OA- PT/OT. 9. Depression-continue home regimen of citalopram and fluoxetine. 10. Morbid obesity-nutrition consult. Diet and lifestyle modifications encouraged. General: Alert, Oriented x3, Cooperative, No apparent distress HEENT: Atraumatic, PERRLA, EOMI, Normocephalic Neck: Supple, No JVD, Negative Carotid Bruits Lungs: Diminished, clear to auscultation Cardiovascular: Regular rate, Regular Rhythm, Normal S1, Normal S2, No murmurs Abdomen: Bowel Sounds Present, Soft, Non Tender, Non-Distended, Obese Extremities: No clubbing, No cyanosis, Edema +1 BLLE Skin: No rashes, No breakdown Musculoskeletal: No Tenderness to Palpation of Joints or Extremities Neurological: Cranial nerves II-XII grossly intact, Neuro grossly intact Psych/Mental Status: Normal Affect, Appropriate Patient seen and examined prior to discharge. Physical assessment as noted above. This patient was seen by MAVERICK Bryan under the supervision of Dr. Gregory. Discharge Diet: Low fat/ Low Cholesterol, Carb Control Diet Discharge Activity: Return to Normal Activity Call your doctor if you observe: Shortness of breath, Dizziness, Fainting spells, Chest pain, Increased palpitations (irregular heartbeat) Home Medications: Medications to take at Discharge Amlodipine [Norvasc] 10 mg PO DAILY 01/07/15 Aspirin [Aspirin, Baby] 81 mg PO DAILY@0800 01/07/15 Atorvastatin Calcium [Lipitor] 80 mg PO QHS 01/07/15 Furosemide [Lasix] 40 mg PO BID 01/07/15 Glimepiride [Amaryl] 4 mg PO BID 01/07/15 HydrALAZINE [Apresoline] 25 mg PO TID 01/07/15 Metformin HCl [Glucophage] 1,000 mg PO BIDCM 01/07/15 Metoprolol(XL)Succ [Toprol Xl (Beta Robinson)] 100 mg PO BID 01/07/15 Multivitamins,Therapeutic [Multivitamin] 1 tab PO DAILY 05/10/16 metolazone 2.5 mg tablet 2.5 mg PO SUTH 05/10/16 Albuterol IH (ProAir) [Proair Hfa] 2 puff INHALATION Q4H PRN PRN 01/18/17 Gemfibrozil [Lopid] 600 mg PO BIDAC 01/18/17 Lorazepam [Ativan] 0.5 mg PO DAILY PRN PRN 01/18/17 Paroxetine HCl [Paxil] 40 mg PO QHS 01/18/17 Ranolazine [Ranexa] 500 mg PO BID 01/18/17 Nitroglycerin [Nitrostat] 0.4 mg SUBLINGUAL Q5M PRN #10 tab 01/19/17 Oxymetazoline 0.05% [Afrin (BKC)] 1 spray NASAL BID #1 spray.btl 02/05/17 Sodium Chloride [Saline Nasal Mist] 1 spray NS TID #2 mist 02/05/17 clopidogrel 75 mg tablet 75 mg PO DAILY #90 tab 05/09/17 potassium chloride ER 20 mEq tablet,extended release 40 meq PO TID tab 06/06/17 Citalopram Hydrobromide [Citalopram HBr] 20 mg PO DAILY 06/10/17 Dapagliflozin Propanediol [Farxiga] 10 mg PO DAILY 06/10/17 Insulin Regular, Human [Humulin R U-500 Kwikpen] 200 unit SQ BID 06/10/17 Sodium Chloride 0.65% [Cannon Nasal [place]] 1 spray NASAL PRN PRN 06/10/17 Furosemide [Lasix] 80 mg PO BIDLX #6 tab 06/11/17 Following Prescrptions Were Given to Patient: Furosemide [Lasix] 80 mg PO BIDLX #6 tab Primary Care Physician: Nicho Beth Chi, MD [Primary Care Provider] - Please follow up with your Primary Care Physician in: 1-2 Weeks Please Follow Up With: Harinder Gracia MD - May see PA/WIRE CHIEF When: 1 Week Additional Instructions: You will take lasix 80mg twice daily for 3 days (06/12/17-06/14/17) and then resume your home regimen of lasix 40mg twice daily. Continue home metolazone regimen which you were given this morning. You will need to call Dr. Gracia office after recovery from your surgery to follow up with him or Stephanie in the office. Continue supplemental oxygen at home to maintain O2 at or above 90%. Keep lower extremities wrapped with LUCIAN wraps and elevate while sitting. Continue to hold plavix prior to surgery and resume as soon as cleared by surgery. Disposition: Home Minutes spent on discharge:: 35 Patient Condition:: Stable Meaningful Use Info Meaningful Use Diagnoses (Choose all that apply): CHF - CHF LUCIAN/ARB ordered at discharge?: No Reason LUCIAN/ARB not ordered?: Allergy Documented LVEF (%): 65 - Tx not indicated. pEF 06/11/17 1334 <Electronically signed by Veronica REEDC> Date Veronica Lion WIRE CHIEF-C 06/14/17 1005<Electronically signed by Roselia Gregory DO> Cosigner Signature (if applicable): Date Roselia Gregory DO CC: WIRE CHIEF-C Veroncia Lion; Mary Gregory; Nicho Beth MD Signed HISTORY AND PHYSICAL Observed: 06/14/2017 Status: F Source: [place] EXAM 10:10 AM REPOSITORY [facility] Medical Records Department [address] [place] [address] History and Physical 06/10/17 1510 MR#: [id number] Acct: [id number] Name: SHADE TEIXEIRA Rep #: [id number] : 1955 61 From: Veronica Lion WIRE CHIEF-C PCP: Kirit PIZANO,Nicho Hollingsworth Status: DIS ZARIA Y Location: [place] [address] ADDENDUM by Mary Gregory on 06/14/17 at 1009 Code Visit This patient was seen in conjunction with Veronica Lion NP. I have independently interviewed and examined the patient and reviewed pertinent historical, laboratory and other data. Please refer to history and physical note for details of this patient's presentation, findings and recommendations. I have reviewed Veronica's note and concur fully with documented findings. In brief, patient is a 61YO male admitted with chest pain associated with SOB. He complained of a 15 lb weight gain in the preceding few weeks and felt this contributed to the SOB and chest pressure. Chest x-ray was fairly unremarkable, there may have been slight pulmonary vascular congestion. Primarily he had lower extremity edema which was pitting. Physical examination: I have reviewed the PE below and agree with the exam Assessment: 1. non-specific chest pain 2. CHF - suspect primarily right side I have discussed my assessment with Veronica and orders have been written. OBSV E AND M: [id number] Initial observation care L3 06/14/17 1009 <Electronically signed by Roselia Gregory DO> Date Roselia Gregory DO cc: MAVERICK Lion; Mary Gregory; Nicho Beth MD * Signed Problem List (1) Chronic hypoxemic respiratory failure Status: Chronic (2) FAVIAN (obstructive sleep apnea) Status: Chronic (3) History of pulmonary embolism Status: Resolved (4) Acquired left ventricular hypertrophy Status: Chronic (5) Hypertriglyceridemia Status: Chronic (6) Morbid obesity with BMI of 40.0-44.9, adult Status: Chronic (7) Status post insertion of drug-eluting stent into left anterior descending (LAD) artery Status: Chronic (8) CAD (coronary artery disease), [place] coronary artery Status: Chronic Qualifiers: (9) Type 2 diabetes mellitus Status: Chronic Qualifiers: (10) Hypertension Status: Chronic Qualifiers: (11) Hyperlipidemia Status: Chronic Qualifiers: (12) History of DVT (deep vein thrombosis) Status: Chronic (13) Osteoarthritis Status: Chronic Qualifiers: History of Present Illness Date of Admission: 06/10/17 Chief Complaint: Shortness of breath, chest tightness The patient is a 61 year old M who presents with shortness of breath and chest tightness which began early this morning around 5 AM. Patient states he has been off of one of his diuretics for the past few weeks due to low potassium. He states he has gained approximately 15 pounds over the past few weeks. He has increased lower extremity edema. Patient also states his neighboring apartment has been smoking which travels inside his apartment and he feels has contributed to his shortness of breath. Patient is scheduled for sinus biopsy 06/12/2017 with plans for further surgical intervention for sinus mass 06/15/2017. He has been off of his Plavix since 05/22/2017. Patient follows with Dr. Gracia who he states is aware that he has been off of Plavix during this time. He has continued to take aspirin. Patient denies recent illness. Denies cough, wheezing. Denies pain radiation. Denies dizziness, lightheadedness, palpitations. Patient has a past medical history of DVT/PE, osteoarthritis, hyperlipidemia, hypertension, type 2 diabetes mellitus, CAD status post PCI, morbid obesity, chronic hypoxic respiratory failure secondary to restrictive lung disease requiring intermittent home oxygen supplementation, obstructive sleep apnea, depression. Patient follows with Dr. Hawkins for FAVIAN/restrictive lung disease. Past Medical History Past Medical History (Chronic Problems): Chronic Problems (Last Reviewed 04/12/17 @ 14:09 by Phuong Rankin) Chronic hypoxemic respiratory failure (Chronic) FAVIAN (obstructive sleep apnea) (Chronic) Dyspnea on exertion (Chronic) Acquired left ventricular hypertrophy (Chronic) Abnormal chest xray (Chronic) Chest discomfort (Chronic) Near syncope (Chronic) Overweight (Chronic) Hypoxia (Chronic) Hypertriglyceridemia (Chronic) Morbid obesity with BMI of 40.0-44.9, adult (Chronic) Status post insertion of drug-eluting stent into left anterior descending (LAD) artery (Chronic) CAD (coronary artery disease), [place] coronary artery (Chronic) Type 2 diabetes mellitus (Chronic) Hypertension (Chronic) Hyperlipidemia (Chronic) History of DVT (deep vein thrombosis) (Chronic) Osteoarthritis (Chronic) Allergies No Known Allergies Allergy (Verified 06/10/17 11:37) Home Medications: Ambulatory Orders Medication Instructions Recorded Amlodipine [Norvasc] 10 mg PO DAILY 01/07/15 Aspirin [Aspirin, Baby] 81 mg PO DAILY@0800 01/07/15 Surgical History: - - PCI, bilateral total hip repair, Achilles tendon repair left side, left arthroscopic knee surgery, ex lap with bowel resection secondary to perforation, tonsillectomy, appendectomy. Psychiatric History: Anxiety, Depression Lives: Alone Smoking Status: Never smoker Tobacco Use: Non-smoker Alcohol: Sober Drugs: None - *Family History Maternal History Items: Cancer - Colon cancer., Diabetes, High Cholesterol, Heart Disease, Hypertension Paternal History Items: Diabetes, High Cholesterol, Heart Disease, Hypertension Review of Systems Constitutional: Denies: Chills, Fever, Weight Change HEENT: Reports: Sinus Congestion, Sinus Drainage Cardiovascular: Reports: Chest Tightness, Edema, Orthopnea. Denies: Chest Pain, Palpitations, Syncope Respiratory: Reports: Shortness of Breath. Denies: Cough, Sputum production, Wheezing Gastrointestinal: Denies: Abdominal Pain, Diarrhea, Nausea, Vomiting Genitourinary: Denies: Dysuria Musculoskeletal: Denies: Joint Pain, Joint Tenderness Skin: Denies: Rash, Wounds Neurological: Denies: Numbness, Tingling, Focal weakness Psychiatric: Reports: Depression Hematologic/ Lymphatic: Denies: Easy Bruising, Easy Bleeding VTE Information - Inpt Only VTE Present on Admission: No VTE Mechan Device Prophylaxis: None VTE Pharm Prophylaxis ordered?: Yes - Physical Exam General: Alert, Oriented x3, Cooperative, No apparent distress HEENT: Atraumatic, PERRLA, EOMI, Normocephalic Neck: Supple, No JVD, Negative Carotid Bruits Lungs: Diminished, - - Fine crackles bilateral bases Cardiovascular: Regular rate, Regular Rhythm, Normal S1, Normal S2, No murmurs Abdomen: Bowel Sounds Present, Soft, Non Tender, Non-Distended, Obese Extremities: No clubbing, No cyanosis, Edema - +2 BLLE Skin: No rashes, No breakdown Musculoskeletal: No Tenderness to Palpation of Joints or Extremities Neurological: Cranial nerves II-XII grossly intact, Neuro grossly intact Psych/Mental Status: Normal Affect, Appropriate Vital Signs Temp Pulse Resp BP Pulse Ox 97.0 F L 70 14 141/81 H 96 06/10/17 14:55 06/10/17 15:01 06/10/17 15:01 06/10/17 15:01 06/10/17 15:01 Finger Stick Blood Glucose 49 Assessment/Plan 1. Acute on chronic diastolic CHF- Echocardiogram 09/30/2015 showed an EF of 65%, stage I diastolic dysfunction, RVSP 22 mmHg. Repeat echocardiogram. Cycle enzymes. BNP only mildly elevated, 116. CXR showed mild pulmonary congestion. Patient has +2 pitting BLLE. States he has gained about 15 lbs in the past few weeks. Strict I AND O. Daily weight. Lasix 40mg IV Q8. EKG on admission without evidence of ischemia. Repeat EKG in a.m. 2. CAD status post PCI to the mid LAD May [address] Gracia. Patient follows with Dr. Gracia as outpatient. Continue aspirin, statin, beta-robinson. Patient recently stopped Plavix due to plans for sinus intervention surgery next week. Per patient, Dr. Gracia aware of temporarily being off of plavix. Patient had a stress echo 01/18/2017 which showed no evidence of ischemia. 3. Type 2 diabetes mellitus-hold oral regimen. Hemoglobin A1c 02/02/2017 was 8.7%. Accu-Cheks before meals at bedtime. Continue Humulin R regimen. 4. Hypertension-stable, continue current regimen including amlodipine, Lasix, metoprolol. 5. Hyperlipidemia-continue atorvastatin and gemfibrozil. 6. History of PE/DVT-previously on Coumadin therapy which was discontinued January, due to significant epistaxis. Continue aspirin, Plavix. 7. Restrictive lung disease/FAVIAN/Chronic hypoxic respiratory failure-follows with Dr. Hawkins. PFTs 10/2016. On supplemental oxygen intermittently at home. States he is compliant with CPAP at bedtime. 8. OA- PT/OT. 9. Depression-continue home regimen of citalopram and fluoxetine. 10. Morbid obesity-nutrition consult. Diet and lifestyle modifications encouraged. DVT prophylaxis-Lovenox subcu. This patient was seen by MAVERICK Bryan under the supervision of Dr. Gregory. 06/10/17 1650 <Electronically signed by Veronica ETMPLE> Date Veronica REEDC 06/14/17 1005<Electronically signed by Roselia Gregory DO> Cosigner Signature: Date (if applicable) Roselia Gregory DO CC: WIRE CHIEF-Giin Lion; Mary Gregory; Nicho Beth MD Signed 12 LEAD ELECTROCARDIOGRAM Observed: 06/13/2017 Status: F Source: [place] 3:52 PM REPOSITORY [facility] Cardiovascular Services [address] [place] [address] 12 Lead EKG 06/10/17 1139 MR#: [id number] Acct: [id number] Name: SHADE TEIXEIRA Rep #: [id number] : 1955 61 From: Robb Hua MD Attending Dr: Mary Gregory Status: DIS ZARIA Ordering Dr: Chidi Ram DO Date: 06/10/17 Location: [facility] Sex: M C Admitted: 06/10/17 Test Reason : CP Blood Pressure : / mmHG Vent. Rate : 078 BPM Atrial Rate : 078 BPM P-R Int : 192 ms QRS Dur : 094 ms QT Int : 376 ms P-R-T Axes : 036 033 062 degrees QTc Int : 428 ms Normal sinus rhythm Septal infarct , age undetermined Abnormal ECG Confirmed by ROBB HUA MD ([id number]), social media editor PRAVEEN CAMPBELL ([id number]) on 06/13/2017 3:51:46 PM Referred By: MARGO Confirmed By:ROBB HUA MD 06/13/17 1551 Date Robb Hua MD CC: Chidi Ram DO; Nicho Beth MD Signed CBC Collected: 06/12/2017 Status: F Source: [place] 11:33 [facility] REPOSITORY TYPE CODE TESTS RESULT OUT OF REFERENCE UNITS RANGE LAB WBCR(LOINC 4.4 - 11.3 x10E9/L ) WBC 10.5 LAB NRBC(LOINC 0.0-0.0 /100 WBC ) NUCLEATED RBC 0.0 LAB RBCCT(LOIN 4.50 - 5.90 x10E12/L C) RBC 5.23 LAB HGB(LOINC) 13.5 - 17.5 g/dL Low HGB 12.6 LAB HCT(LOINC) 41.0 - 52.0 % HCT 44.3 LAB MCV(LOINC) 80 - 100 fL MCV 85 LAB MCHC2(LOIN 32.0 - 36.0 g/dL C) Low MCHC 28.4 LAB PLTCT(LOIN 150 - 450 x10E9/L C) PLT 367 LAB RDWCV(LOIN 11.5 - 14.5 % C) High RDW-CV 20.3 Performed By: #### CBC #### [facility] [address] [place] [address] COAGULATION SCREEN Collected: 06/12/2017 Status: CANCELLED Source: [place] 11:33 [facility] REPOSITORY Order Comment: TEST COAGULATION SCREEN WAS CANCELLED, 06/12/2017 14:02 QNS. TYPE CODE TESTS RESULT OUT OF REFERENCE UNITS RANGE LAB PT(LOINC) PROTHROMBIN TIME Canceled LAB INR(LOINC) PT, INR Canceled LAB APTT(LOINC ) APTT Canceled Result Comment: THE APTT IS NO LONGER USED FOR MONITORING UNFRACTIONATED HEPARIN THERAPY. FOR MONITORING HEPARIN THERAPY, USE THE HEPARIN ASSAY. Performed By: #### COAGS #### [facility] [address] [facility] [place] [address] BASIC METABOLIC PANEL Collected: 06/12/2017 Status: F Source: [place] 11:[address] [place] [address] REPOSITORY TYPE CODE TESTS RESULT OUT OF REFERENCE UNITS RANGE LAB GLU(LOINC) 74 - 99 mg/dL GLUCOSE High 113 LAB SOD(LOINC) 136 - 145 mmol/L SODIUM 141 LAB K(LOINC) 3.5 - 5.3 mmol/L POTASSIUM 4.2 LAB CHLOR(LOIN 98 - 107 mmol/L C) CHLORIDE 102 LAB BIC(LOINC) 21 - 32 mmol/L BICARBONATE 27 LAB ANGAP(LOIN 10 - 20 mmol/L C) ANION GAP 16 LAB UREA(LOINC 6 - 23 mg/dL ) UREA High NITROGEN 26 LAB CREA(LOINC 0.50 - 1.30 mg/dL ) CREATININE 0.89 LAB GFRFN(LOIN >60 mL/min/1.7 C) 3m2 GFR-NON AM. >60 LAB GFRAA(LOIN >60 mL/min/1.7 C) 3m2 GFR- AM. >60 Result Comment: CALCULATIONS OF ESTIMATED GFR ARE PERFORMED USING THE MDRD STUDY EQUATION FOR THE IDMS-TRACEABLE CREATININE METHODS. CLIN CHEM 2007;53:766-72 LAB CA(LOINC) 8.6 - 10.6 mg/dL CALCIUM 10.6 Performed By: #### BMP #### [facility] [address] [facility] [place] [address] TYPE + SCREEN Collected: 06/12/2017 Status: F Source: [place] 11:[address] [place] [address] REPOSITORY TYPE CODE TESTS RESULT OUT OF REFERENCE UNITS RANGE LAB ABORH(LOINC ) ABO TYPE A LAB RH(LOINC) RH TYPE POS LAB ABSC(LOINC) ANTIBODY POS SCREEN Performed By: #### T+S #### [facility] [address] [place] [address] ANTIBODY IDENT. Collected: 06/12/2017 Status: F Source: [place] 11:[address] [place] [address] REPOSITORY TYPE CODE TESTS RESULT OUT OF REFERENCE UNITS RANGE LAB ABID(LOINC ) ANTIBODY Inconclusive IDENT. Performed By: #### ABID #### [facility] [address] [place] [address] PATH REVIEW-IMMUNOHEMATOLOGY Collected: Status: F Source: [place] 06/12/2017 11:33 [facility] REPOSITORY TYPE CODE TESTS RESULT OUT OF RANGE REFERENCE UNITS LAB PRV30(LOINC ) PATH RBRANDY REV-IMMUNOHE MOTOL Result Comment: By her/his signature above, the Pathologist listed as making the final interpretation certifies that she/he has personally reviewed this case. ANTIBODY DETECTION SCREEN IS POSITIVE. ANTIBODY IDENTIFICATION PANEL WAS PERFORMED. THE AUTOCONTROL IS NEGATIVE. ALL COMMON CLINICALLY SIGNIFICANT ALLOANTIBODIES HAVE BEEN RULED OUT. FULL CROSSMATCHED DONOR RBC UNITS SHOULD BE SELECTED FOR TRANSFUSION FOR THIS PATIENT. Performed By: #### PR30 #### [facility] [address] [place] [address] CHEST; 2 VIEW AP Observed: 06/12/2017 Status: F Source: [place] 11:02 AM [facility]ITALS REPOSITORY Patient Name: SHADE TEIXEIRA STUDY: CHEST; 2 VIEW AP; 06/12/2017 11:02 am INDICATION: Signs/Symptoms: RESP NOS. COMPARISON: None ACCESSION NUMBER(S): [id number] ORDERING CLINICIAN: EDUARDO ALMEIDA FINDINGS: Patient is slightly rotated towards right. The cardiomediastinal silhouette size is within normal limits. There is no focal consolidation, edema or pneumothorax. No sizeable pleural effusion. No acute osseous abnormality. IMPRESSION: 1. No radiographic evidence of acute cardiopulmonary process. Electronically signed by: RIC ALEXANDER MD DISCHARGE INSTRUCTION Observed: 06/11/2017 Status: F Source: [place] 1:23 PM REPOSITORY [facility] Medical Records Department [address] [place] [address] Instructions for Home/Discharge Instructions 06/11/17 1317 MR#: [id number] Acct: [id number] Name: TEIXEIRASHADE Rep #: [id number] : 1955 61 From: Veronica Lion WIRE CHIEF-C PCP: Kirit PIZANO,Nicho Chi Status: ADM ZARIA You will use the following diet at home:: Calorie/Carbohydrate Controlled (specify 1200, 1400, etc), Cardiac Discharge Activity: Return to Normal Activity Call your doctor if you observe: Shortness of breath, Dizziness, Fainting spells, Chest pain, Increased palpitations (irregular heartbeat) Additional Instructions: You will take lasix 80mg twice daily for 3 days (06/12/17-06/14/17) and then resume your home regimen of lasix 40mg twice daily. Continue home metolazone regimen which you were given this morning. You will need to call Dr. Gracia office after recovery from your surgery to follow up with him or Stephanie in the office. Continue supplemental oxygen at home to maintain O2 at or above 90%. Keep lower extremities wrapped with LUCIAN wraps and elevate while sitting. Continue to hold plavix prior to surgery and resume as soon as cleared by surgery. Allergies/Adverse Reactions: Allergies No Known Allergies Allergy (Verified 06/10/17 11:37) Medications to take at Discharge Amlodipine [Norvasc] 10 mg PO DAILY 01/07/15 Aspirin [Aspirin, Baby] 81 mg PO DAILY@0800 01/07/15 Atorvastatin Calcium [Lipitor] 80 mg PO QHS 01/07/15 Furosemide [Lasix] 40 mg PO BID 01/07/15 Glimepiride [Amaryl] 4 mg PO BID 01/07/15 HydrALAZINE [Apresoline] 25 mg PO TID 01/07/15 Metformin HCl [Glucophage] 1,000 mg PO BIDCM 01/07/15 Metoprolol(XL)Succ [Toprol Xl (Beta Robinson)] 100 mg PO BID 01/07/15 Multivitamins,Therapeutic [Multivitamin] 1 tab PO DAILY 05/10/16 metolazone 2.5 mg tablet 2.5 mg PO SUTH 05/10/16 Albuterol IH (ProAir) [Proair Hfa] 2 puff INHALATION Q4H PRN PRN 01/18/17 Gemfibrozil [Lopid] 600 mg PO BIDAC 01/18/17 Lorazepam [Ativan] 0.5 mg PO DAILY PRN PRN 01/18/17 Paroxetine HCl [Paxil] 40 mg PO QHS 01/18/17 Ranolazine [Ranexa] 500 mg PO BID 01/18/17 Nitroglycerin [Nitrostat] 0.4 mg SUBLINGUAL Q5M PRN #10 tab 01/19/17 Oxymetazoline 0.05% [Afrin (BKC)] 1 spray NASAL BID #1 spray.btl 02/05/17 Sodium Chloride [Saline Nasal Mist] 1 spray NS TID #2 mist 02/05/17 clopidogrel 75 mg tablet 75 mg PO DAILY #90 tab 05/09/17 potassium chloride ER 20 mEq tablet,extended release 40 meq PO TID tab 06/06/17 Citalopram Hydrobromide [Citalopram HBr] 20 mg PO DAILY 06/10/17 Dapagliflozin Propanediol [Farxiga] 10 mg PO DAILY 06/10/17 Insulin Regular, Human [Humulin R U-500 Kwikpen] 200 unit SQ BID 06/10/17 Sodium Chloride 0.65% [Cannon Nasal [place]] 1 spray NASAL PRN PRN 06/10/17 Furosemide [Lasix] 80 mg PO BIDLX #6 tab 06/11/17 The following prescriptions were given: Furosemide [Lasix] 80 mg PO BIDLX #6 tab Primary Care Physician: Nicho Beth Chi, MD [Primary Care Provider] - Please follow up with your Primary Care Physician in: 1-2 Weeks Please Follow Up With: Harinder Gracia MD - May see PA/WIRE CHIEF When: 1 Week Proposed Discharge Date: 06/11/17 06/11/17 1323 <Electronically signed by Veronica Lion NP-C> Date Veronica TEMPLE CC: Nicho Beth MD BEDSIDE GLUCOSE Collected: 06/11/2017 Status: F Source: [place] 11:13 AM REPOSITORY TYPE CODE TESTS RESULT OUT OF REFERENCE UNITS RANGE LAB L501.080 70-110 mg/dL High BEDSIDE GLU 255 Result Comment: MANAGEMENT OF PATIENT CARE PER NURSING PROTOCOL Performed By: #### L501.080 #### [facility] Point of Care [address] [place] [address] BEDSIDE GLUCOSE Collected: 06/11/2017 Status: F Source: [place] 6:34 AM REPOSITORY TYPE CODE TESTS RESULT OUT OF REFERENCE UNITS RANGE LAB L501.080 70-110 mg/dL High BEDSIDE GLU 199 Result Comment: MANAGEMENT OF PATIENT CARE PER NURSING PROTOCOL Performed By: #### L501.080 #### [facility] Point of Care [address] [place] [address] TROPONIN-I Collected: 06/11/2017 Status: F Source: [place] 2:40 AM REPOSITORY Order Comment: 'TROP' Serial specimen #1, #2, #3, or #4: 4 TYPE CODE TESTS RESULT OUT OF RANGE REFERENCE UNITS LAB L501.4010 <0.06 ng/mL Normal < 0.02 TROPONIN-I Result Comment: TROPONIN-I EXPECTED VALUES <0.05 NEGATIVE 0.06 - 0.59 AT RISK OF CO > OR = 0.60 SUGGEST CO Performed By: #### L501.4010 #### [facility] [address] [place], [address] BASIC METABOLIC Collected: 06/11/2017 Status: F Source: [place] PROFILE (BMP) 2:35 AM REPOSITORY TYPE CODE TESTS RESULT OUT OF RANGE REFERENCE UNITS LAB L501.0100 74-106 mg/dL High GLU 225 Result Comment: Glucose result greater than or equal to 200 mg/dL suggests DIABETES MELLITUS per A.D.A. criteria. Please note revised GLUCOSE reference range effective 2017. LAB L501.1000 7-18 mg/dL High BUN 22 LAB L501.1100 0.70-1.30 mg/dL Normal CREAT,SERUM 1.09 Result Comment: The validity of the calculated GFR AND GFRAA in patients over 70 years has not been determined. Clinical correlation is essential. LAB L501.1110 >60 mL/min Normal EST GFR 73 Result Comment: Non- GFR Calc LAB L501.1115 >60 mL/min Normal EST GFR - AA 89 Result Comment: GFR Calc LAB L501.1255 ml/min Normal Estimated CRCL 74.41 LAB L501.1300 10-20 RATIO High BUN/CRE 20.2 LAB L501.2200 8.5-10 mg/dL Normal .1 CA 9.9 LAB L501.5300 136-14 mmol/L Normal 5 NA 140 LAB L501.5600 3.5-5. mmol/L Normal 1 K 4.4 LAB L501.5900 98-107 mmol/L Normal CL 103 LAB L501.6100 21.0-3 mmol/L Normal 2.0 CO2 27.0 LAB L501.6200 5-15 Normal GAP 10 Performed By: #### L500.2500 #### [facility] [address] [place], [address] BEDSIDE GLUCOSE Collected: 06/10/2017 Status: F Source: [place] 9:12 PM REPOSITORY TYPE CODE TESTS RESULT OUT OF REFERENCE UNITS RANGE LAB L501.080 70-110 mg/dL High BEDSIDE GLU 211 Result Comment: MANAGEMENT OF PATIENT CARE PER NURSING PROTOCOL Performed By: #### L501.080 #### [facility] Point of Care [address] [facility] [place] [address] TROPONIN-I Collected: 06/10/2017 Status: F Source: [place] 4:50 PM REPOSITORY Order Comment: 'TROP' Serial specimen #1, #2, #3, or #4: 2 TYPE CODE TESTS RESULT OUT OF RANGE REFERENCE UNITS LAB L501.4010 <0.06 ng/mL Normal < 0.02 TROPONIN-I Result Comment: TROPONIN-I EXPECTED VALUES <0.05 NEGATIVE 0.06 - 0.59 AT RISK OF CO > OR = 0.60 SUGGEST CO Performed By: #### L501.4010 #### [facility] [address] [place], [address] BEDSIDE GLUCOSE Collected: 06/10/2017 Status: F Source: [place] 3:24 PM REPOSITORY TYPE CODE TESTS RESULT OUT OF RANGE REFERENCE UNITS LAB L501.080 70-110 mg/dL Normal BEDSIDE GLU 70 Result Comment: MANAGEMENT OF PATIENT CARE PER NURSING PROTOCOL Performed By: #### L501.080 #### [facility] Point of Care [address] [place] [address] BEDSIDE GLUCOSE Collected: 06/10/2017 Status: F Source: [place] 2:54 PM REPOSITORY TYPE CODE TESTS RESULT OUT OF REFERENCE UNITS RANGE LAB L501.080 70-110 mg/dL Low BEDSIDE GLU 49 Result Comment: MANAGEMENT OF PATIENT CARE PER NURSING PROTOCOL Performed By: #### L501.080 #### [facility] Point of Care [address] [place] [address] EMERGENCY DEPARTMENT Observed: 06/10/2017 Status: F Source: [place] SUMMARY 2:30 PM REPOSITORY [facility] Medical Records Department [address] [place] [address] Emergency Department Summary 06/10/17 1424 MR#: [id number] Acct: [id number] Name: SHADE TEIXEIRA Rep #: [id number] : 1955 61 From: Chidi Ram DO PCP: iKrit PIZANO,Nicho Hollingsworth Status: REG ER - ER Visit Summary Date of Service: 06/10/17 Chief Complaint: [Chest pain and shortness of breath] History of Present Illness: The patient is a 61 M [presents to the emergency department with symptoms of chest pain shortness of breath that started around 5:30 AM. Patient states that he started getting a smell of cigarettes coming from another apartment and he thinks that may have triggered it possibly. Patient states that he used an inhaler and did not get much relief. Patient then took 2 nitro which did not seem to help a whole lot and that is when he decided to come in and get evaluated. Patient has a history of a cardiac stent about 6 months ago. Patient also has a history of COPD and he has had history of PE in the past. Patient states that he scheduled to have a biopsy for some sort of a sinus mass to be done in 2 days and has been off of his Plavix since 23 May in anticipation of surgery which has been pushed back due to insurance reasons. Patient denies any recent travel or surgery. He denies any fever.] Physical Examination: [HEENT-PERRLA, EOMI. Cranial nerves II through XII grossly intact. TMs clear. Mucous membranes moist. No adenopathy. Cardiovascular-regular rate and rhythm without murmur or ectopy Lungs-diminished breath sounds bilaterally with some faint expiratory wheezes noted bilaterally. No accessory muscle use or retractions. Abdomen-normoactive bowel sounds, soft, nontender, no rebound or rigidity, no peritoneal signs. Extremities-intact 4, normal range of motion, normal pulses, atraumatic] Test Results: [EKG obtained on arrival showed a sinus rhythm with a ventricular rate 78 bpm with an old septal infarct noted. When compared with prior EKG from January 2017 no new changes noted. CBC with differential was normal. Chemistries unremarkable. Troponin less than 0.02. D-dimer is normal 0.33. BNP was slightly elevated 116. Chest x-ray showed some cardiomegaly with some mild pulmonary congestion.] Emergency Department Course and Treatment: [Initially patient received aspirin on arrival emergency department and was given a DuoNeb aerosol. Patient started on Solu-Medrol 125 mg IV.] Treatment Plan: [Patient's pressure initially improved with the breathing treatment but then returned and at this point case was discussed with hospitalist evaluate patient for admission] Disposition: [Admit] Impression: [Chest pain-rule out acute coronary syndrome COPD exacerbation] This note was generated with [employer] dictation software. It may contain incorrect words, spelling, and punctuation that were not noted in review of the chart prior to signing ED Disposition - Plan for ED Patient: Chief Complaint: Chest Pain Referrals: Nicho Beth Chi, MD [Primary Care Provider] - What to do if you have Problems For any increased pain, shortness of breath, bleeding, nausea or vomiting, chest pain, or any unexpected problems, contact your Primary Care Provider. Call [facility] ([phone]) or report to the closest Emergency Room. Call 911 if necessary. 06/10/17 1430 <Electronically signed by Chidi Ram DO> Date Chidi Ram DO Cosigner Signature (If Indicated): Date CC: Nicho Beth MD CHEST 1 VIEW Observed: 06/10/2017 Status: F Source: [place] (PORTABLE) 12:00 PM [facility] REPOSITORY [facility] Imaging Services [address] [place] [address] Chest 1 View (Portable) MR#: [id number] Acct: [id number] Name: SHADE TEIXEIRA Rep #: [id number] : 1955 M 61 From: Susan Campbell MD PCP: Nicho Beth MD, Chi Status: PRE ER Study: Chest 1 View (Portable) Date of Exam: 06/10/17 Exam# [id number] Ordering Dr: Chidi Ram DO STUDY: X-RAY CHEST REASON FOR EXAM: Male, 61 years old. Increased shortness of breath and chest pain starting this morning. TECHNIQUE: Single AP portable view of the chest. COMPARISON: January 18, 2017. FINDINGS: Cardiac monitoring leads are present. There is moderate elevation of the right hemidiaphragm. There are perihilar interstitial consolidations. There is no demonstrated pleural abnormality. There is mild cardiac enlargement. Normal mediastinum and sue. There is prominence of the pulmonary hilar arteries with peripheral pulmonary vascular congestion. There is atherosclerotic calcification of the aortic arch with tortuosity. There is demineralization of the osseous structures. Normal visualized ribs, clavicles, and shoulders. There is no demonstrated abnormality of the visualized soft tissue structures of the upper abdomen. RAD/Chest 1 View (Portable) IMPRESSION: Mild cardiomegaly and pulmonary congestion. Electronically Signed: Susan Campbell MD at 12:38 EST , Service support , CC: Chidi Ram DO; Nicho Beth MD Director Counseling Bureau: Signed CBC W/DIFF, AUTOMATED Collected: 06/10/2017 Status: F Source: [place] 11:45 AM REPOSITORY TYPE CODE TESTS RESULT OUT OF RANGE REFERENCE UNITS LAB L100.1000 4.4-11.0 K/mm3 Normal WBC 8.8 LAB L100.1200 4.6-6.2 M/mm3 Normal RBC 4.93 LAB L100.1300 13.0-16.5 g/dl Low HGB 12.0 LAB L100.1400 40-54 % Normal HCT 40.6 LAB L100.1500 80-94 fL Normal MCV 82.4 LAB L100.1600 27.0-32.0 pg Low MCH 24.3 LAB L100.1700 32-36 g/gl Low MCHC 29.6 LAB L100.1810 11.6-14.6 % High RDW CV 19.3 LAB L100.1820 35.1-43.9 fl High RDW SD 58.0 LAB L100.1900 150-450 K/mm3 Normal PLT 349 LAB L100.2000 6.2-12.0 fl Normal MPV 9.1 LAB L100.2100 47-70 % Normal NEUT% 68.4 LAB L100.2200 19-41 % Low LY% 17.3 LAB L100.2300 0-10 % High MONO% 11.8 LAB L100.2400 0-5 % Normal EO% 2.0 LAB L100.2500 0-1 % Normal BASO% 0.2 LAB L100.2550 0.0-0.9 % Normal IM GRAN % 0.300 Result Comment: IG% - Immature Granulocytes (promyelocytes, myelocytes and metamyelocytes) > 1% indicates that a LEFT SHIFT is Present. LAB L100.2620 2.0-7.7 X10 3/uL Normal Absolute Neut 6.0 LAB L100.2720 0.83-4.51 X10 3/ul Normal Absolute Lymph 1.52 Performed By: #### L100.0100 #### [facility] [address] [place], [place], [address] D-DIMER QUANTITATIVE Collected: 06/10/2017 Status: F Source: [place] (DVT/PE) 11:45 AM REPOSITORY TYPE CODE TESTS RESULT OUT OF RANGE REFERENCE UNITS LAB L300.8000 0.27-0.49 FEU/ug/m Normal D-DIMER 0.33 QUANT Result Comment: NORMAL D-Dimer level (<0.50) indicates no DVT or PE. Performed By: #### L300.8000 #### [facility] [address] [place], [place], [address] BASIC METABOLIC Collected: 06/10/2017 Status: F Source: [place] PROFILE (BMP) 11:45 AM REPOSITORY Order Comment: 'TROP' Serial specimen #1, #2, #3, or #4: 1 TYPE CODE TESTS RESULT OUT OF RANGE REFERENCE UNITS LAB L501.0100 74-106 mg/dL Low GLU 47 Result Comment: Glucose result less than 50 mg/dL suggests HYPOGLYCEMIA. Please note revised GLUCOSE reference range effective 2017. LAB L501.1000 7-18 mg/dL High BUN 20 LAB L501.1100 0.70-1.30 mg/dL Normal CREAT,SERUM 0.95 Result Comment: The validity of the calculated GFR AND GFRAA in patients over 70 years has not been determined. Clinical correlation is essential. LAB L501.1110 >60 mL/min Normal EST GFR 86 Result Comment: Non- GFR Calc LAB L501.1115 >60 mL/min Normal EST GFR - AA 104 Result Comment: GFR Calc LAB L501.1255 ml/min Normal Estimated CRCL 85.38 LAB L501.1300 10-20 RATIO High BUN/CRE 21.0 LAB L501.2200 8.5-10 mg/dL Normal .1 CA 9.8 LAB L501.5300 136-14 mmol/L Normal 5 NA 140 LAB L501.5600 3.5-5. mmol/L Normal 1 K 3.6 LAB L501.5900 98-107 mmol/L Normal CL 104 LAB L501.6100 21.0-3 mmol/L Normal 2.0 CO2 29.0 LAB L501.6200 5-15 Normal GAP 7 Performed By: #### L500.2500, L501.4010 #### [facility] [address] [place], [place], [address] TROPONIN-I Collected: 06/10/2017 Status: F Source: [place] 11:45 AM REPOSITORY Order Comment: 'TROP' Serial specimen #1, #2, #3, or #4: 1 TYPE CODE TESTS RESULT OUT OF RANGE REFERENCE UNITS LAB L501.4010 <0.06 ng/mL Normal < 0.02 TROPONIN-I Result Comment: TROPONIN-I EXPECTED VALUES <0.05 NEGATIVE 0.06 - 0.59 AT RISK OF CO > OR = 0.60 SUGGEST CO Performed By: #### L500.2500, L501.4010 #### [facility] [address] [place], [address] BNP,B-TYPE NATRIURETIC Collected: 06/10/2017 Status: F Source: [place] PEPTIDE 11:45 AM REPOSITORY TYPE CODE TESTS RESULT OUT OF RANGE REFERENCE UNITS LAB L503.6620 0-100 pg/mL High B-TYPE 116.6 RIGO PEP Performed By: #### L503.6620 #### [facility] [address] [place], [address] BASIC METABOLIC Collected: 06/09/2017 Status: F Source: [place] PROFILE (BMP) 1:59 PM REPOSITORY TYPE CODE TESTS RESULT OUT OF RANGE REFERENCE UNITS LAB L501.0100 74-106 mg/dL High GLU 129 Result Comment: Fasting Glucose result greater than or equal to 126 mg/dL suggests DIABETES MELLITUS per A.D.A. criteria. Please note revised GLUCOSE reference range effective 2017. LAB L501.1000 7-18 mg/dL High BUN 20 LAB L501.1100 0.70-1.30 mg/dL Normal CREAT,SERUM 1.05 Result Comment: The validity of the calculated GFR AND GFRAA in patients over 70 years has not been determined. Clinical correlation is essential. LAB L501.1110 >60 mL/min Normal EST GFR 76 Result Comment: Non- GFR Calc LAB L501.1115 >60 mL/min Normal EST GFR - AA 93 Result Comment: GFR Calc LAB L501.1300 10-20 RATIO Normal BUN/CRE 19.0 LAB L501.2200 8.5-10.1 mg/dL High CA 10.4 LAB L501.5300 136-145 mmol/L NA Normal 141 LAB L501.5600 3.5-5.1 mmol/L K Normal 4.1 LAB L501.5900 98-107 mmol/L CL Normal 103 LAB L501.6100 21.0-32.0 mmol/L Normal CO2 31.0 LAB L501.6200 5-15 Normal GAP 7 Performed By: #### L500.2500 #### [facility] [place], [address] CBC W/DIFF, AUTOMATED Collected: 06/05/2017 Status: F Source: [place] 3:22 PM REPOSITORY Order Comment: PLEASE SEND COPIES OF LABS TO OFFICE ALSO TYPE CODE TESTS RESULT OUT OF RANGE REFERENCE UNITS LAB L100.1000 4.4-11.0 K/mm3 Normal WBC 7.0 LAB L100.1200 4.6-6.2 M/mm3 Normal RBC 5.20 LAB L100.1300 13.0-16.5 g/dl Low HGB 12.4 LAB L100.1400 40-54 % Normal HCT 41.4 LAB L100.1500 80-94 fL Low MCV 79.6 LAB L100.1600 27.0-32.0 pg Low MCH 23.8 LAB L100.1700 32-36 g/gl Low MCHC 30.0 LAB L100.1810 11.6-14.6 % High RDW CV 18.6 LAB L100.1820 35.1-43.9 fl High RDW SD 53.1 LAB L100.1900 150-450 K/mm3 Normal PLT 310 LAB L100.2000 6.2-12.0 fl Normal MPV 8.8 LAB L100.2100 47-70 % High NEUT% 73.6 LAB L100.2200 19-41 % Low LY% 10.2 LAB L100.2300 0-10 % High MONO% 13.8 LAB L100.2400 0-5 % Normal EO% 2.0 LAB L100.2500 0-1 % Normal BASO% 0.3 LAB L100.2550 0.0-0.9 % Normal IM GRAN % 0.100 Result Comment: IG% - Immature Granulocytes (promyelocytes, myelocytes and metamyelocytes) > 1% indicates that a LEFT SHIFT is Present. LAB L100.2620 2.0-7.7 X10 3/uL Normal Absolute Neut 5.2 LAB L100.2720 0.83-4.51 X10 3/ul Low Absolute Lymph 0.72 Performed By: #### L100.0100 #### [facility] [address] [facility] [place], [address] PROTHROMBIN TIME W/INR Collected: 06/05/2017 Status: F Source: [place] 3:22 PM REPOSITORY Order Comment: PLEASE SEND COPIES OF LABS TO OFFICE ALSO TYPE CODE TESTS RESULT OUT OF RANGE REFERENCE UNITS LAB L300.4150 11.7-14.9 SECONDS Normal PROTIME 13.0 LAB L300.4200 Normal INR 1.0 Performed By: #### L300.3900, L300.4310 #### [facility] [address] [facility] [place], [address] PARTIAL THROMBOPLAST Collected: 06/05/2017 Status: F Source: [place] TIME 3:22 PM REPOSITORY Order Comment: PLEASE SEND COPIES OF LABS TO OFFICE ALSO TYPE CODE TESTS RESULT OUT OF RANGE REFERENCE UNITS LAB L300.4310 24.1-36.2 Seconds Normal PTT 27.0 Performed By: #### L300.3900, L300.4310 #### [facility] [address] [facility] [place], [address] COMPREHENSIVE METABOLIC Collected: 06/05/2017 Status: F Source: [place] PROFIL 3:22 PM REPOSITORY Order Comment: PLEASE SEND COPIES OF LABS TO OFFICE ALSO TYPE CODE TESTS RESULT OUT OF RANGE REFERENCE UNITS LAB L501.0100 74-106 mg/dL Normal GLU 102 Result Comment: Fasting Glucose result from 100 to 125 mg/dL suggests IMPAIRED HOMEOSTASIS per A.D.A. criteria. Please note revised GLUCOSE reference range effective 2017. LAB L501.1000 7-18 mg/dL High BUN 26 LAB L501.1100 0.70-1.30 mg/dL Normal CREAT,SERUM 1.10 Result Comment: The validity of the calculated GFR AND GFRAA in patients over 70 years has not been determined. Clinical correlation is essential. LAB L501.1110 >60 mL/min Normal EST GFR 72 Result Comment: Non- GFR Calc LAB L501.1115 >60 mL/min Normal EST GFR - AA 88 Result Comment: GFR Calc LAB L501.1300 10-20 RATIO High BUN/CRE 23.6 LAB L501.1500 6.4-8.2 g/dL T Normal PROT 8.0 LAB L501.1800 3.2-5.0 g/dL Normal ALB 3.9 LAB L501.1950 2.2-4.2 g/dL Normal GLOB 4.1 LAB L501.2000 0.9-2.4 RATIO Normal A/G 1.0 LAB L501.2200 8.5-10.1 mg/dL High CA 10.7 LAB L501.4100 15-37 U/L High AST 48 LAB L501.4305 45-117 U/L Normal ALK P 58 LAB L501.4405 16-61 U/L High ALT 70 Result Comment: Please note revised ALT reference range effective 2017. LAB L501.4600 0.20-1.00 mg/dL Normal T BILI 0.40 LAB L501.5300 136-145 mmol/L Normal NA 137 LAB L501.5600 3.5-5.1 mmol/L Low K 3.1 LAB L501.5900 98-107 mmol/L Normal CL 98 LAB L501.6100 21.0-32.0 mmol/L Normal CO2 31.0 LAB L501.6200 5-15 Normal GAP 8 Performed By: #### L500.4050 #### [facility] [address] [facility] [place], [address] [place] - INDIVIDUAL Observed: 05/19/2017 Status: F Source: [place] TREATMENT PLAN 6:05 PM REPOSITORY [facility] Pulmonary Rehab Reports [address] [place] [address] [place] - Individual Treatment Plan MR#: [id number] Acct: [id number] Name: SHADE TEIXEIRA Praveen Rep #: [id number] : 1955 61 From: Shantanu Davey DIRECTOR OF SPECIAL EDUCATION, UTILITY PLANT OPERATIVE, BS PCP: Kirit PIZANO,Nicho Chi Exercise - 90-Day Assessment - Exercise Prescription Mode:: Treadmill, Airdyne, NuStep, Arm Ergometer Frequency (x/week): 3 Duration:: 30 Aerobic Exercise [30-60 min 3-7x/week]:: Met Target heart rate: 120 - 112-120 Max HR 122 Penelope MET Level:: 4 - Home Exercise Home Exercise?: Yes Frequency:: daily Time (minutes):: 30 - walking/uses oxygen Disease Management - 90-Day - Hypoxemia Reassessment: Demonstrates knowledge of O2 Rx at rest, Demonstrates knowledge of O2 Rx with exercise, Using O2 as prescribed, Has home O2 as prescribed, Uses port O2 as prescribed - Medications Medication list reviewed:: Yes Taking medications 100% of the time:: Met Medication reassessment: Yes Pt demonstrates correct technique timing for MDI - verbalizes proper order of medication use, Yes Pt demonstrates correct technique timing for DPI, Yes Pt demonstrates correct technique timing for NEB, Yes Pt demonstrates correct technique timing for spacer - demonstrastes proper use of spacer device - Bronchial Hygiene Bronchial Hygiene Plan: Yes Pt demonstrates correctly for effective cough - returned demonstration hill cough, Yes Pt demo correct for device - return demonstration use of SMI and PEP Therapy devices, Yes Pt demo correct for sputum management - returned demonstration use of acapella, Yes Pt demo correct for improved hydration - increased water intake with caution for edema, Yes Pt demo correct for hand hygiene - proper use of good hand hygiene, Yes Pt demo correct for verbalize when to call MD - verbalizes signs symptoms to notify physician Psychosocial - 90-Day - Assessment Depression reassess: Management of stress: Met, Management of depression: Met, Practicing interventions: Met Tobacco - 90-Day Assessment - Program Goals Tobacco Program Goals: Complete smoking cessation. Attend education classes. Improve Knowledge Test score - Stage of Change Stages of Change:: Action - Learning Barriers Learning Barriers: Participates in education, Change in behavior - positive behavioral changes, walking more, montioring signs symptoms of issues to prevent problems. - Family Support Do you have family support?: Yes - Tobacco Use Tobacco Use: Non-smoker Do you use smokeless tobacco?: No - Intervention Smoking Cessation Referral:: No Individual Education/Counseling:: No Education Schedule Given:: Yes - Education Gave Education Materials For:: Pulmonary Disease, Risk Factors, Breathing Techniques, Medical Compliance, Pulmonary A AND P, Exacerbation Signs AND Symptoms, Stress AND Relaxation Nutrition/Wt Mgmt - 90-Day - Weight Management Weight Assessment:: Wt stable Weight:: 136.985 kg - Patient could benefit from Structured weight loss and Diabetic Support to better manage his diabetes. HE has been referred to [facility] Weight Goals Progress:: Goal met Patient Health Questionnaire 90-Day Re-eval Assessment 1. Little interest or pleasure in doing things: Not at all 2. Feeling down, depressed, or hopeless: Not at all 3. Trouble falling or staying asleep, or sleeping too much: Several days 4. Feeling tired or having little energy: Several days 5. Poor appetite or overeating: Several days 6. Feeling bad about yourself -- or that you are a failure or have let yourself or your family down: Not at all 7. Trouble concentrating on things, such as reading the newspaper or watching television: Not at all 8. Moving or speaking so slowly that other people could have noticed. Or the opposite - being so fidgety or restless that you have been moving around a lot more than usual: Not at all 9. Thoughts that you would be better off , or of hurting yourself in some way: Not at all How difficult have these problems made it for you to do your work, take care of things at home, or get along with other people?: Not difficult at all Total Score: 3 COPD Knowledge Test Discharge COPD is a lung disease that:: Makes it hard to breathe AND gets worse over time In the [place] the term COPD describes 2 main lung conditions:: Emphysema AND chronic bronchitis The most common lung irritant that causes COPD is:: Cigarette smoke Common signs and symptoms of COPD include:: An ongoing cough/cough that produces a large amount of mucus, AND SOB If you have COPD, what steps can you take?: All of the above Swelling of the ankles is common in COPD:: False Fatigue [tiredness] is common in COPD:: True Wheezing is common in COPD:: True Crushing chest pain is common in COPD:: False Rapid weight loss is common in COPD:: False Breathlessness is a normal response to exercise: True Exercise should be avoided if it makes you short of breath: False All bronchodilators act within 10 minutes: True A spacer device increases the medication to the lungs: True Annual flu vaccine is recommended for pts w/lung disease: True COPD Knowledge Test Total Score:: 14 COPD Assessment Test [CAT] - Questions Never cough = 0, Cough all the time = 5: 2 No phlegm = 0, Chest full of phlegm = 5: 3 No chest tightness = 0, Chest very tight = 5: 2 No breathless w/exertion = 0, Very breathless w/exertion = 5: 4 No limitations w/activity = 0, Very limited w/activity = 5: 3 Confident leaving home = 0, Not at all confident = 5: 2 Sleep soundly = 0, Don't sleep soundly = 5: 3 Lots of energy = 0, No energy at all = 5: 3 Total CAT score:: 22 Self-Efficacy 90-Day Re-eval Assessment We would like to know how confident you are in doing certain activities. Please select your confidence level for:: Select your confidence level for the following using the scale 1-10 where 1 is not at all confident and 10 is totally confident. Your score is the average of all 6 responses. Fatigue: How confident are you that you can keep the fatigue caused by your disease from interfering with the things you want to do? Select Number: 8 Physical Discomfort or Pain: How confident are you that you can keep the physical discomfort or pain of your disease from interfering with the things you want to do? Select Number: 10 Emotional Distress: How confident are you that you can keep the emotional distress caused by your disease from interfering with the things you want to do? Select Number: 9 Other Symptoms or Health Problems: How confident are you that you can keep other symptoms or health problems from interfering with the things you want to do? Select Number: 10 Different Tasks and Activities: How confident are you that you can do the different tasks and activities needed to manage your health condition so as to reduce your need to see a doctor? Select Number: 10 Medication: How confident are you that you can do things other than just taking medication to reduce how much your illness affects your everyday life? Select Number: 10 Total Score:: 9 Nutrition Survey - Nutrition Survey Instructions Scoring Instructions: Scoring is as follows: Yes = 1 points. No = 0 point. Patient score that is >/=12 is considered to be at potential nutritional risk and could benefit from a referral to a registered dietitian. - Nutrition Survey Discharge Have you lost >10 lbs over the past 2 months without trying?: No Are you following a special diet at home for diabetes, low fat, or low salt?: Yes Are you interested in meeting with a dietitian for help understanding your diet?: Yes Do you eat less than 3 meals a day?: Yes Do you eat fatty meats (fernandez, sausage, ribs, etc), fried foods, desserts, large amounts of salad dressings, margarine, butter, or cheese most days?: Yes Do you have food allergies? [Enter types in comment field]: No Do you eat in restaurants more than 3 times a week?: No Do you season food with salt, seasoning salt, or garlic salt?: No Do you used canned, boxed, frozen meals, or soups, seasoning packets?: Yes Total Score:: 5 05/08/17 1056 <Electronically signed by Shantanu Davey CRT, UTILITY PLANT OPERATIVE, FORREST> Date Shantanu Davey CRT, UTILITY PLANT OPERATIVE, FORREST Outcome assessment reviewed. Exercise plan approved as documented. Treatment plan and goals support patient needs/abilities. Continue with current plan. I certify the patient demonstrates improvement and remains willing and capable of participation. the patient continues to benefit from pulmonary services/training. The patient may continue at current intensity, endurance and modality and progress per protocol. 05/19/17 1805<Electronically signed by Clay Min MD> Cosigner Signature: Date Clay Min MD CC: Signed ALLERGIES ALLERGIES DATE TYPE / CODE NAME / CODE REACTION SEVERITY SOURCE 04/11/2018 Drug No Known Unknown [facility] Allergy/4160 Allergies/F00 Hospital 82843(SNOMED 0518134(RXNOR Repository CT) M) ENCOUNTERS ENCOUNTERS ADMIT/DISCHARGE ACCOUNT NUMBER ADMITTING ENCOUNTER LOCATION SOURCE CLASS 04/17/2018 [id number] Ambulatory [facility] ding:PT Repository 04/12/2018 [id number] Ambulatory [facility] ding:[place] Repository 04/11/2018/04/11/19 [id number] Ambulatory BMSBuilding: [place] [address] Repository 03/28/2018 [id number] Ambulatory BMSBuilding: [place] BMS.CF.[facility] Repository 03/28/2018 [id number] Ambulatory [facility] ding:CVS Repository 03/20/2018/03/20/20 [id number] Ambulatory BMSBuilding: [place] [address] Repository 03/19/2018/03/19/20 [id number] Ambulatory BMSBuilding: [place] 18 BMS.[facility] Repository 03/15/2018/04/09/20 [id number] Ambulatory [address] ding:[place] Repository 03/08/2018/03/08/20 [id number] Ambulatory BMSBuilding: [place] 18 BMS.[facility] Repository 03/07/2018/03/09/20 [id number] Ambulatory [address] ding:[place] Repository 02/23/2018/02/24/20 [id number] Emergency [address] ding:ED Repository 02/15/2018/02/16/20 [id number] Ambulatory BMSBuilding: [place] 18 BMS.[facility] Repository 02/08/2018 [id number] Ambulatory [facility] ding:LAB Repository 02/08/2018/02/09/20 [id number] Ambulatory BMSBuilding: [place] [address] Repository 01/22/2018/01/23/20 [id number] Ambulatory BMSBuilding: [place] 18 BMS.[facility] Repository 01/18/2018 [id number] Ambulatory [facility] ding:LAB Repository 01/18/2018/01/19/20 [id number] Ambulatory BMSBuilding: [place] [address] Repository 01/09/2018/01/10/20 [id number] Ambulatory BMSBuilding: [place] [address] Repository 01/02/2018 [id number] Ambulatory [address] [place] [address] Repository 11/21/2017 [id number] Ambulatory [address] [place] [address] Repository 11/14/2017 [id number] Ambulatory [address] [place] [address] Repository 11/06/2017/11/08/19 [id number] JUAN PABLO, Inpatient UHCBuilding: [address] Encounter Y126Iqyz: Hospitals Z6562Ngq: Repository [id number] 10/25/2017 [id number] Ambulatory [facility] Repository 10/10/2017 [id number] Ambulatory [address] [place] [address] Repository 10/10/2017 [id number] Ambulatory [facility] Repository 10/09/2017/10/10/19 [id number] Ambulatory BMSBuilding: [place] [address] Repository 10/09/2017/10/10/19 [id number] Ambulatory BMSBuilding: [place] 18 BMS.[facility] Repository 09/19/2017 [id number] Ambulatory [facility] ding:POLAB3 Repository 09/03/2017/09/04/19 [id number] Emergency [address] ding:ED Repository 09/01/2017/09/02/19 [id number] Emergency [address] ding:ED Repository 08/22/2017 [id number] JUAN PABLO, Ambulatory [address] [place] [address] Repository 08/07/2017/08/08/19 [id number] JUAN PABLO Ambulatory UHCBuilding: [address] TMORRoom: Hospitals EJRH9Yay: Repository TMOR37 08/07/2017 [id number] Ambulatory [facility] Repository 07/31/2017 [id number] Ambulatory [facility] Repository 07/18/2017 [id number] Ambulatory [facility] ding:SL Repository 07/12/2017/07/13/19 [id number] Ambulatory BMSBuilding: [place] 18 BMS.[facility] Hospital Repository 07/06/2017 [id number] Ambulatory [facility] ding:POLAB3 Repository 06/30/2017/07/01/19 [id number] Emergency [address] ding:ED Repository 06/21/2017 [id number] Ambulatory [facility] ding:POLAB3 Repository 06/21/2017/06/22/19 [id number] Ambulatory BMSBuilding: [place] [address] Repository 06/20/2017 [id number] Ambulatory [facility] ding:PSN Repository 06/20/2017 [id number] Ambulatory BMSBuilding: [place] [facility] Repository 06/19/2017/06/20/19 [id number] Ambulatory BMSBuilding: [place] 18 BMS.[facility] Repository 06/15/2017/06/16/19 [id number] Ambulatory UHCBuilding: [place] [address] TESARoom: [facility] ECOG0Jfu: Repository [id number] 06/15/2017/06/16/19 [id number] JUAN PABLO, Ambulatory UHCBuilding: [place] [address] EDUARD[address] D TMORRoom: Hospitals VOGC4Tah: Repository TMOR29 06/14/2017 [id number] Ambulatory [facility] ding:LAB Repository 06/12/2017 [id number] Ambulatory [facility] Repository 06/12/2017 [id number] Ambulatory [facility] ding:[place] Repository 06/12/2017 [id number] Ambulatory [facility] Repository 06/11/2017/06/12/19 [id number] Ambulatory BMSBuilding: [place] 18 [facility] Repository 06/10/2017/06/12/19 [id number] Sementi, Ambulatory [address] ding:PCURoom Repository : SNF848Zce: 1 06/10/2017 [id number] Sementi, Ambulatory BMSBuilding: [place] Mary BMS.[facility] Repository 06/10/2017 [id number] Sementi, Ambulatory BMSBuilding: [place] BMS.[facility] Repository 06/09/2017 [id number] Ambulatory [facility] ding:LAB Repository 06/05/2017 [id number] Ambulatory [facility] ding:LAB Repository 06/05/2017/06/05/19 [id number] Ambulatory BMSBuilding: [place] 18 BMS.[facility] Repository 05/18/2017/06/07/19 [id number] [place]ulatory [place] [address] [place] [address] ding:[place] Repository 05/15/2017 [id number] Ambulatory [facility] ding:[place] Repository 05/10/2017/05/10/19 [id number] [place] [address] [place] [address] ding:[place] Repository PAYERS PAYERS ENCOUNTER GUARANTOR PAYER SUBSCRIBER SOURCE 04/17/2018 SHADE A Primary [place]ADE [place] [id number] Insurance:JERALD MARTINOB: Community [address] MEDICARE SENIOR [id number] ADVANTAPolicy Number: Repository [id number]: (330 [id number] [phone] (HP) Date:9154-86-66VN [address] [place] [address] 93993GR: 04/17/2018 Secondary NOT GIVENUNK [place] Insurance:SELF PAY Community INSURANCEPolicy Number: Hospital Effective Repository Date:2018-04-09 04/12/2018 SHADE A Primary [place]ADE [place] [id number] Insurance:JERALD MARTINOB: Community [address] MEDICARE SENIOR [id number] ADVANTAPolicy Number: Repository [id number]: (330) [id number] [phone] (HP) Date:8745-33-84ZU [address] [place] [address] 34279RN: 04/12/2018 Secondary NOT GIVENUNK [place] Insurance:SELF PAY Community INSURANCEPolicy Number: Hospital Effective Repository Date:2018-04-10 04/11/2018 SHADE A Primary [place]ADE [place] [id number] Insurance:JERALD MARTINOB: Community [address] MEDICARE SENIOR [id number] ADVANTAPolicy Number: Repository [id number]: (330 [id number] [phone] (HP) Date:9651-56-51KR [address] [place] [address] 76287PC: 04/11/2018 Secondary NOT GIVENUNK [place] Insurance:SELF PAY Community INSURANCEPolicy Number: Hospital Effective Repository Date:2018-04-09 03/28/2018 SHADE A Primary SHADE A [place] [id number] Insurance:JERALD MCDANIEL: Community [address] MEDICARE SENIOR [id number] ADVANTAPolicy Number: Repository [id number]: (330) [id number] [phone] (HP) Date:8858-98-78XQ [address] [place] [address] 87547ZQ: 03/28/2018 Secondary NOT GIVENUNK [place] Insurance:SELF PAY Community INSURANCEPolicy Number: Hospital Effective Repository Date:2018-03-28 03/28/2018 SHADE A Primary SHADE A [place] [id number] Insurance:JERALD MCDANIEL: Community [address] MEDICARE SENIOR [id number] ADVANTAPolicy Number: Repository [id number]: (330) [id number] [phone] (HP) Date:6758-44-76DR [address] [place] [address] 12418UJ: 03/28/2018 Secondary NOT GIVENUNK [place] Insurance:SELF PAY Community INSURANCEPolicy Number: Hospital Effective Repository Date:2018-03-19 03/20/2018 SHADE A Primary SHADE A [place] [id number] Insurance:JERALD MCDANIEL: Community [address] MEDICARE SENIOR [id number] ADVANTAPolicy Number: Repository [id number]: (330) [id number] [phone] (HP) Date:1053-20-75LC [address] [place] [address] 84076TE: 03/20/2018 Secondary NOT GIVENUNK [place] Insurance:SELF PAY Community INSURANCEPolicy Number: Hospital Effective Repository Date:2018-03-20 03/19/2018 SHADE A Primary SHADE A [place] [id number] Insurance:JERALD MARTINOB: Community [address] MEDICARE SENIOR [id number] ADVANTAPolicy Number: Repository [id number]: (330 [id number] [phone] (HP) Date:8271-44-25TN [address]KPBKBUC [place] [address]IP: 03/19/2018 Secondary NOT GIVENUNK [place] Insurance:SELF PAY Community INSURANCEPolicy Number: Hospital Effective Repository Date:2018-03-19 03/15/2018 SHADE A Primary SHADE A [place] [id number] Insurance:MEDICARE PART FRANKSDOB: Community [address] A BPolicy Number: [id number] [id number] Repository 99356Ite: (330) Date:2018-03-06 [phone] (HP) 03/15/2018 Secondary SHADE A [place] Insurance:ANTHEMPolicy FRANKSDOB: Community Number: .Effective [id number] Hospital Date:0052-19-87XO BOX Repository [address] [place] [address] [place] [address]VS: 03/15/2018 Tertiary Insurance:SELF NOT GIVENUNK [place] PAY INSURANCEPolicy Community Number: Effective Hospital Date:2018-03-10 Repository 03/08/2018 SHADE A Primary SHADE A [place] [id number] Insurance:ANTHEM FRANKSDOB: Community [address] MEDICARE SENIOR [id number] ADVANTAPolicy Number: Repository [id number]: (330) [id number] [phone] (HP) Date:4627-36-28QS [address], [place] [address]OZ: 03/08/2018 Secondary NOT GIVENUNK [place] Insurance:SELF PAY Community INSURANCEPolicy Number: Hospital Effective Repository Date:2018-03-08 03/07/2018 SHADE A Primary SHADE A [place] [id number] Insurance:ANTHEM FRANKSDOB: Community [address] MEDICARE SENIOR [id number] ADVANTAPolicy Number: Repository [id number]: (330) [id number] [phone] (HP) Date:5342-31-53OC [address] [place] [address] 05129BE: 03/07/2018 Secondary NOT GIVENUNK [place] Insurance:SELF PAY Community INSURANCEPolicy Number: Hospital Effective Repository Date:2018-03-06 02/23/2018 SHADE A Primary SHADE A [place] [id number] Insurance:JERALD MARTINOB: Community [address] MEDICARE SENIOR [id number] ADVANTAPolicy Number: Repository [id number]: (330 [id number] [phone] (HP) Date:3815-18-72WQ [address] [place] [address] 62229XW: 02/23/2018 Secondary NOT GIVENUNK [place] Insurance:SELF PAY Community INSURANCEPolicy Number: Hospital Effective Repository Date:2018-02-23 02/15/2018 SHADE A Primary SHADE A [place] [id number] Insurance:JERALD MARTINOB: Community [address] MEDICARE SENIOR [id number] ADVANTAPolicy Number: Repository [id number]: (330 [id number] [phone] (HP) Date:4832-08-78HV [address] [place] [address] 02056UT: 02/15/2018 Secondary NOT GIVENUNK [place] Insurance:SELF PAY Community INSURANCEPolicy Number: Hospital Effective Repository Date:2018-02-15 02/08/2018 SHADE A Primary SHADE A [place] [id number] Insurance:JERALD MARTINOB: Community [address] MEDICARE SENIOR [id number] ADVANTAPolicy Number: Repository [id number]: 330 [id number] [phone] (HP) Date:2313-36-42QS [address] [place] [address] [place] [address]WA: 02/08/2018 Secondary NOT GIVENUNK [place] Insurance:SELF PAY Community INSURANCEPolicy Number: Hospital Effective Repository Date:2018-02-08 02/08/2018 SHADE A Primary SHADE A [place] [id number] Insurance:COURTNEYEMPolicy FRANKSDOB: Community [address] Number: [id number] [id number] Repository 81873Fbc: (330) Date:0992-13-51PP [phone] () [address] [place] [address] 72826OJ: 02/08/2018 Secondary SHADE A [place] Insurance:MEDICARE PART FRANKSDOB: Community A BPolicy Number: [id number] Hospital [id number] Repository Date:2018-01-11 02/08/2018 Tertiary Insurance:SELF NOT GIVENUNK [place] PAY INSURANCEPolicy Community Number: Effective Hospital Date:2018-01-11 Repository 01/22/2018 SHADE A Primary SHADE A [place] [id number] Insurance:COURTNEYCYNTHIA MARTINOB: Community [address] MEDICARE SENIOR [id number] ADVANTAPolicy Number: Repository [id number]: (330) [id number] [phone] (HP) Date:6345-56-42LJ [address] [place] [address] 98502XO: 01/22/2018 Secondary NOT GIVENUNK [place] Insurance:SELF PAY Community INSURANCEPolicy Number: Hospital Effective Repository Date:2018-01-22 01/18/2018 SHADE A Primary SHADE A [place] [id number] Insurance:JERALD VERONICAOB: Community [address] MEDICARE SENIOR [id number] ADVANTAPolicy Number: Repository [id number]: (330) [id number] [phone] () Date:2261-11-85AZ [address] [place] [address] 59003PR: 01/18/2018 Secondary NOT GIVENUNK [place] Insurance:SELF PAY Community INSURANCEPolicy Number: Hospital Effective Repository Date:2018-01-18 01/18/2018 SHADE A Primary SHADE A [place] [id number] Insurance:JERALD MARTINOB: Community [address] MEDICARE SENIOR [id number] ADVANTAPolicy Number: Repository [id number]: 330 [id number] [phone] (HP) Date:3114-99-77NK [address]TAAKYEL[address] [place] [address] 52246HY: 01/18/2018 Secondary NOT GIVENUNK [place] Insurance:SELF PAY Community INSURANCEPolicy Number: Hospital Effective Repository Date:2018-01-18 01/09/2018 SHADE A Primary SHADE A [id number] Insurance:ANTHEM PHELPS HEALTHOB: Community [address] MEDICARE SENIOR [id number] ADVANTAPolicy Number: Repository [id number]: 330 [id number] [phone] () Date:6515-11-16KZ [address]VY[address] [place] [address] 30896II: 01/09/2018 Secondary NOT GIVENUNK [place] Insurance:SELF PAY Community INSURANCEPolicy Number: Hospital Effective Repository Date:2018-01-02 01/02/2018 SHADE [facility]AnthemPolicy [facility]HEL[facility] HEALTHOB: [facility] Number: [id number] [address] [id number] [address] [place] [address] Date:Plan Name:[address] [address]Orf: (135) 26822Akv: (HP) [phone] (HP) 11/21/2017 SHADE A Primary [facility]ADE [facility]AnthemPolicy [facility] HEALTHOB: [facility] Number: [id number] Rep[address] [id number] [address] [place] [address] Date:Plan Name:[address] [address]Myv: [phone] 18867Tel: (HP) [phone] (HP) 11/14/2017 SHADE A Primary SHADE A [facility]:AnthemPolicy [facility] HEALTHOB: Hospitals Number: [id number] [id number] [address], [place] Date:Plan Name:[address] [address]Vod: (252) 30281Tel: (HP) [phone] (HP) 11/06/2017 [facility]AnthemPolicy [facility]: [facility] Number: [id number] [id number] [address], [place] Date:Plan Name:[address] [address]Uew: ([phone]) 23911Tel: (HP) [phone] (HP) 10/25/2017 [facility]: [facility] Number: [id number] [address] [id number] [address] Date:Plan Name:[address] [address]Zdc: (762) 54998Tel: (HP) [phone] (HP) 10/10/2017 [facility]:AnthemPolicy [facility]: [facility] Number: [id number] Repository [address] [id number] [address], [place] Date:Plan Name:[address] [address]Avx: [phone]) 15733Tel: (HP) [phone] (HP) 10/10/2017 [facility]Ad[facility]: [facility] Number: [id number] Repository [address] [id number] [address] [place] [address] Date:Plan Name:[address] 088[address]Vnh: (754) 52691Tel: (HP) [phone] (HP) 10/09/2017 SHADE A Primary SHADE [place] [id number] Insurance:JERALD MARTINOB: Community [address] MEDICARE SENIOR [id number] ADVANTAPolicy Number: Repository [id number]: (330 [id number] [phone] (HP) Date:4877-24-73IB [address]ZSWWBIW [place] [address]MT: 10/09/2017 Secondary NOT GIVENUNK [place] Insurance:SELF PAY Community INSURANCEPolicy Number: Hospital Effective Repository Date:2017-10-05 10/09/2017 SHADE A Primary SHADE A [place] [id number] Insurance:JERALD MARTINOB: Community [address] MEDICARE SENIOR [id number] ADVANTAPolicy Number: Repository [id number]: (330 [id number] [phone] (HP) Date:8517-82-80NB [address] [place] [address] [place] [address]IR: 10/09/2017 Secondary NOT GIVENUNK [place] Insurance:SELF PAY Community INSURANCEPolicy Number: Hospital Effective Repository Date:2017-10-09 09/19/2017 SHADE A Primary SHADE A [place] [id number] Insurance:JERALD MCDANIEL: Community [address] MEDICARE SENIOR [id number] ADVANTAPolicy Number: Repository [id number]: 330 [id number] [phone] (HP) Date:1698-54-84[address]TVRIPQB [place] [address]PA: 09/19/2017 Secondary NOT GIVENUNK [place] Insurance:SELF PAY Community INSURANCEPolicy Number: Hospital Effective Repository Date:2017-09-19 09/03/2017 SHADE A Primary SHADE A [place] [id number] Insurance:JERALD BALLOKOB: Community [address] MEDICARE SENIOR [id number] ADVANTAPolicy Number: Repository [id number]: 330 [id number] [phone] (HP) Date:3599-73-98DV [address] [place] [address] 63964TD: 09/03/2017 Secondary NOT GIVENUNK [place] Insurance:SELF PAY Community INSURANCEPolicy Number: Hospital Effective Repository Date:2017-09-03 09/01/2017 SHADE A Primary SHADE A [place] [id number] Insurance:JERALD PHELPS HEALTHOB: Community [address] MEDICARE SENIOR [id number] ADVANTAPolicy Number: Repository [id number]: 330 [id number] [phone] (HP) Date:4760-66-72WP [address] [place] [address] 11501GM: 09/01/2017 Secondary NOT GIVENUNK [place] Insurance:SELF PAY Community INSURANCEPolicy Number: Hospital Effective Repository Date:2017-09-01 08/22/2017 SHADE A Primary SHADE [place] [facility] CenterOB: [facility] Number: [id number] Repository [address] [id number] [address] [place] [address] Date:Plan Name:[address] [address]Qth: (779) 93309Tel: (HP) [phone] (HP) 08/07/2017 SHADE A Primary SHADE A [facility]:AnthemPolicy [facility]OB: [facility] Number: [id number] Repository [address] [id number] [address] [place] [address] Date:Plan Name:[address] [address]Kju: (621) [phone]: (HP) [phone] (HP) 08/07/2017 SHADE A Primary SHADE A [facility]:AnthemPolicy [facility]OB: [facility] Number: [id number] Repository [address] [id number] [address] [place] [address] Date:Plan Name:[address] 113[address]Oxq: (667) 25711Tel: (HP) [phone] (HP) 07/31/2017 SHADE A Primary SHADE A [facility]Pst[facility] HEALTHOB: [facility] Number: [id number] Repository [address] [id number] [address] [place] [address] Date:Plan Name:[address] 126[address]Rvb: (624) [phone]: (HP) [phone] (HP) 07/18/2017 SHADE A Primary SHADE A [place] [id number] Insurance:JERALD PHELPS HEALTHOB: Community [address] MEDICARE [facility] [id number] ADVANTAPolicy Number: Repository [id number]: 330 [id number] [phone] (HP) Date:4596-45-86TJ[address] [address]QI: 07/18/2017 Secondary SHADE A [place] Insurance:NATIONWIDE PHELPS HEALTHOB: Community INSURANCEPolicy Number: [id number] Hospital [id number] Repository Date: [place], [place] [address]YL: 07/18/2017 Tertiary Insurance:SELF NOT GIVENUNK [place] PAY INSURANCEPolicy Community Number: Effective Hospital Date:2017-07-06 Repository 07/12/2017 SHADE A Primary SHADE A [place] [id number] Insurance:[facility]: Community [address] MEDICARE SENIOR [id number] ADVANTAPolicy Number: Repository [id number]: 330 [id number] [phone] () Date:9775-81-40OR [address]QMJSNVR, [place] [address]QN: 07/12/2017 Secondary NOT GIVENUNK [place] Insurance:SELF PAY Community INSURANCEPolicy Number: Hospital Effective Repository Date:2017-07-10 07/06/2017 SHADE A Primary SHADE A [place] [id number] Insurance:NATIONWIDE PHELPS HEALTHOB: Community [address] INSURANCEPolicy Number: [id number] [id number] Repository 83756Qmn: (330) Date: S [phone] () [place] [address]PZ: 07/06/2017 Secondary SHADE A [place] Insurance:MEDICARE PART [facility] Community A BPolicy Number: [id number] Hospital [id number] Repository Date:2017-07-06 07/06/2017 Tertiary SHADE A [place] Insurance:CARESOURCE PHELPS HEALTHOB: Community JUST FOR MEPolicy [id number] Hospital Number: Repository [id number] Date:3677-51-11XF [address] [address]SY: 07/06/2017 Tertiary Insurance:SELF NOT GIVENUNK [place] PAY INSURANCEPolicy Community Number: Effective Hospital Date:2017-07-06 Repository 06/30/2017 SHADE A Primary SHADE A [place] [id number] Insurance:NATIONWIDE PHELPS HEALTHOB: Community [address] INSURANCEPolicy Number: [id number] [id number] Repository [address]Uyn: (330) Date: S [phone] () [place], [place] [address]KN: 06/30/2017 Secondary SHADE A [place] Insurance:MEDICARE PART FRANKSDOB: Community A BPolicy Number: [id number] Hospital [id number] Repository Date:2017-06-30 06/30/2017 Tertiary SHADE A [place] Insurance:CARESOURCJet MARTINOB: Community [facility] [id number] Hospital Number: Repository [id number] Date:1321-01-62GT [address] [place] [address]AL: 06/30/2017 Tertiary Insurance:SELF NOT GIVENUNK [place] PAY INSURANCEPolicy Community Number: Effective Hospital Date:2017-06-30 Repository 06/21/2017 SHADE A Primary SHADE A [place] [id number] Insurance:MEDICARE PART FRANKSDOB: Community [address] A olicy Number: [id number] [id number] Repository [address]Pke: (330) Date:2017-06-21 [phone] (HP) 06/21/2017 Secondary SHADE A [place] Insurance:CARESOURCJet MARTINOB: Community JUST FOR [facility] [id number] Hospital Number: Repository [id number] Date:2426-66-15HX [address] [place] [address]RL: 06/21/2017 Tertiary Insurance:SELF NOT GIVENUNK [place] PAY INSURANCEPolicy Community Number: Effective Hospital Date:2017-06-21 Repository 06/21/2017 SHADE A Primary SHADE A [place] [id number] Insurance:MEDICARE PART FRANKSDOB: Community [address] BPolicy Number: [id number] [id number] Repository 196[address]Tqv: (330) Date:2017-06-05 [phone] (HP) 06/21/2017 Secondary SHADE A [place] Insurance:CARESOURCE QUINNSDOB: Community [facility] [id number] Hospital Number: Repository [id number] Date:0069-31-92LT [address] [address]UP: 06/21/2017 Tertiary Insurance:SELF NOT GIVENUNK [place] PAY INSURANCEPolicy Community Number: Effective Hospital Date:2017-06-05 Repository 06/20/2017 SHADE A Primary SHADE A [place] [id number] Insurance:MEDICARE PART FRANKSDOB: Community [address] A BPolicy Number: [id number] [id number] Repository [address]Fzp: (330) Date:2017-06-05 [phone] (HP) 06/20/2017 Secondary SHADE A [place] Insurance:CARESOURCE FRANKSDOB: Community JUST FOR MEPolicy [id number] Hospital Number: Repository [id number] Date:2963-32-18UN[address] [address]GV: 06/20/2017 Tertiary Insurance:SELF NOT GIVENUNK [place] PAY INSURANCEPolicy Community Number: Effective Hospital Date:2017-06-05 Repository 06/20/2017 SHADE A Primary SHADE A [place] [id number] Insurance:MEDICARE PART FRANKSDOB: Community [address] A BPolicy Number: [id number] [id number] Repository 859[address]Wbm: (330) Date:2017-06-05 [phone] () 06/20/2017 Secondary SHADE A [place] Insurance:CARESOURCE FRANKSDOB: Community JUST FOR MEPolicy [id number] Hospital Number: Repository [id number] Date:1217-49-90UM[address] [address]JE: 06/20/2017 Tertiary Insurance:SELF NOT GIVENUNK [place] PAY INSURANCEPolicy Community Number: Effective Hospital Date:2017-06-20 Repository 06/19/2017 SHADE A Primary SHADE A [place] [id number] Insurance:MEDICARE PART FRANKSDOB: Community [address] A BPolicy Number: [id number] [id number] Repository [address]Brj: (330) Date:2017-03-17 [phone] (HP) 06/19/2017 Secondary SHADE A [place] Insurance:CARESOURCE FRANKSDOB: Community JUST FOR MEPolicy [id number] Hospital Number: Repository [id number] Date:1231-85-72KD [address] [address]QH: 06/19/2017 Tertiary Insurance:SELF NOT GIVENUNK [place] PAY INSURANCEPoly Community Number: Effective Hospital Date:2017-03-17 Repository 06/15/2017 [facility]are[facility]olic FRANKSDOB: Hospitals y Number: [id number] Repository [address] [id number] [address], [place] Date:5399-80-99Sxoj [address] [place] [address] 795[address]Svy: (330) Name:Marbella Morton [address]Pox: (HP) [phone] (HP) 06/15/2017 Secondary SHADE A [place] Insurance:MedicarePolic FRANKSDOB: Hospitals y Number: [id number] Repository [id number] [address] Date:Plan Name:Marbella [place], [place] [address]Djo: (HP) 06/15/2017 Tertiary SHADE A [place] [facility] [id number] Repository Number: [address] [id number] [place] Date:2016-04-10 - [address]Fde: (330) 1721-59-61Vjag [phone] (HP) Name:Health 06/15/2017 SHADE A Primary [facility]ADE [facility]:MedicarePolic FRANKSDOB: Hospitals y Number: [id number] Repository [address] [id number] [address], [place] Date:8344-67-22Lksz [place], [place] [address]Hiq: (330) Name:Marbella Morton [address]Gsf: (HP) [phone] (HP) 06/15/2017 Secondary SHADE A [facility] Insurance:MedicarePolic [facility] y Number: [id number] Repository [id number] [address] Date:Plan [facility] [address] [place] [address]Dhh: (HP) 06/15/2017 Tertiary SHADE A [facility] [id number] Repository Number: [address] [id number] [place], [place] Date:Plan Name:Health [address]Vub: (HP) 06/14/2017 SHADE A Primary SHADE A [place] [address] Insurance:MEDICARE PART [facility]: Community [address] A BPolicy Number: [id number] [address] [id number] Repository [address]Fgj: (330) Date:2017-06-14 [phone] () 06/14/2017 Secondary SHADE A [place] Insurance:[facility]: Community [facility] [id number] Hospital Number: Repository [id number] Date:7854-93-31BP[address] [address]EI: 06/14/2017 Tertiary Insurance:SELF NOT GIVENUNK [place] PAY INSURANCEPolicy Community Number: Effective Hospital Date:2017-06-14 Repository 06/12/2017 SHADE A Primary SHADE A [facility]: Insurance:MedicarePolLake [facility] Health SystemOB: Hospitals y Number: [id number] Repository [address] [id number] [address] [place] Date:4348-08-24Jgbp[address] [address]Zdb: 330) Name:Marbella Morton [address]Oyy: (HP) [phone] (HP) 06/12/2017 Secondary SHADE A [facility] Insurance:[facility]OB: Hospitals y Number: [id number] Repository [id number] [address] Date:Plan Name:Marbella Kan [place], [place] [address]Zdm: (HP) 06/12/2017 Tertiary SHADE A [place] Insurance:[facility]: [facility] [id number] Repository Number: [address] [id number] [address] [place] [address] Date:Plan Name:[place] [address]Tel: (HP) 06/12/2017 Tertiary SHADE A [place] [facility] icy Number: [id number] Repository [id number] [address] Date:Plan Name:[facility] [address], [place] [address]Rqp: [phone]: (HP) [phone] 06/12/2017 SHADE A Primary SHADE [place] [address] Insurance:MEDICARE PART [facility]: Community [address] A BPolicy Number: [id number] [id number] Repository [address]Hxl: (330) Date:2017-05-10 [phone] (HP) 06/12/2017 Secondary SHADE A [place] Insurance:[facility]: Community JUST FOR MEPolicy [id number] Hospital Number: Repository [id number] Date:4752-22-47VM [address] [address]IQ: 06/12/2017 Tertiary Insurance:SELF NOT GIVENUNK [place] PAY INSURANCEPolicy Community Number: Effective Hospital Date:2017-06-08 Repository 06/12/2017 SHADE A Primary SHADE A University [facility]: Insurance:MedicarePolic [facility]: [facility] y Number: [id number] Repository [address] [id number] [address] [place] [address] Date:2447-72-75Kzkx[address] [address]Lnn: (330) Name:Marbella Morton [address]Pcj: (HP) [phone] (HP) 06/12/2017 Secondary SHADE A [facility] Insurance:MedicarePolic FRANKSDOB: Hospitals y Number: [id number] Repository [id number] [address] Date:Plan Name:Marbella Kan [address] [place] [address]Kaq: (HP) 06/12/2017 Tertiary SHADE A University Insurance:Caresource [facility] Center[facility] [id number] Repository Number: [address] [id number] [address] [place] [address] Date:2016-04-10 679[address]Cgx: (274) 0732-87-76Hpdq [phone] (HP) Name:Health 06/11/2017 SHADE A Primary SHADE A [place] [id number] Insurance:MEDICARE PART FRANKSDOB: Community [address] A BPolicy Number: [id number] [id number] Repository [address]Sti: 330) Date:2017-06-10 [phone] () 06/11/2017 Secondary SHADE A [place] Insurance:CARESOURCE [facility]: Community JUST FOR MEPolicy [id number] Hospital Number: Repository [id number] Date:7369-26-85WV [address] [address]RI: 06/11/2017 Tertiary Insurance:SELF NOT GIVENUNK [place] PAY INSURANCEPolicy Community Number: Effective Hospital Date:2017-06-11 Repository 06/10/2017 SHADE A Primary SHADE A [place] [id number] Insurance:MEDICARE PART FRANKSDOB: Community [address] A BPolicy Number: [id number] [id number] Repository [address]Yjf: (330) Date:2017-06-10 [phone] (HP) 06/10/2017 Secondary SHADE A [place] Insurance:CARESOURCE [facility]: Community JUST FOR MEPolicy [id number] Hospital Number: Repository [id number] Date:8759-08-71MC[address] [address]DU: 06/10/2017 Tertiary Insurance:SELF NOT GIVENUNK [place] PAY INSURANCEPolicy Community Number: Effective Hospital Date:2017-06-10 Repository 06/10/2017 SHADE A Primary SHADE A [place] [id number] Insurance:MEDICARE PART FRANKSDOB: Community [address] A BPolicy Number: [id number] [id number] Repository [address]Ykw: 330) Date:2017-06-10 [phone] () 06/10/2017 Secondary SHADE A [place] Insurance:CARESOURCE FRANKSDOB: Community JUST FOR MEPolicy [id number] Hospital Number: Repository [id number] Date:7799-62-74ZQ[address] [address]DM: 06/10/2017 Tertiary Insurance:SELF NOT GIVENUNK [place] PAY INSURANCEPolicy Community Number: Effective Hospital Date:2017-06-10 Repository 06/10/2017 SHADE A Primary SHADE A [place] [id number] Insurance:MEDICARE PART FRANKSDOB: Community [address] A olicy Number: [id number] [id number] Repository [address]Len: 330) Date:2017-06-10 [phone] () 06/10/2017 Secondary SHADE A [place] Insurance:CARESOURCE FRANKSDOB: Community JUST FOR MEPolicy [id number] Hospital Number: Repository [id number] Date:4081-77-75VH[address] [address]HD: 06/10/2017 Tertiary Insurance:SELF NOT GIVENUNK [place] PAY INSURANCEPolicy Community Number: Effective Hospital Date:2017-06-10 Repository 06/09/2017 SHADE A Primary SHADE A [place] [id number] Insurance:MEDICARE PART FRANKSDOB: Community [address] A [facility] Number: [id number] [id number] Repository [address]Dko: (330) Date:2017-06-09 [phone] (HP) 06/09/2017 Secondary SHADE A [place] Insurance:CARESOURCE FRANKSDOB: Community JUST FOR MEPolicy [id number] Hospital Number: Repository [id number] Date:1686-11-58TD [address] [place] [address]BC: 06/09/2017 Tertiary Insurance:SELF NOT GIVENUNK [place] PAY INSURANCEPolicy Community Number: Effective Hospital Date:2017-06-09 Repository 06/05/2017 SHADE A Primary SHADE A [place] [id number] Insurance:MEDICARE PART FRANKSDOB: Community [address] A BPolicy Number: [id number] [id number] Repository [address]Mkj: (330) Date:2017-06-05 [phone] (HP) 06/05/2017 Secondary SHADE A [place] Insurance:CARESOURCE FRANKSDOB: Community JUST FOR MEPolicy [id number] Hospital Number: Repository [id number] Date:4926-70-22CJ [address] [place] [address]NC: 06/05/2017 Tertiary Insurance:SELF NOT GIVENUNK [place] PAY INSURANCEPolicy Community Number: Effective Hospital Date:2017-06-05 Repository 06/05/2017 SHADE A Primary SHADE A [place] [id number] Insurance:MEDICARE PART FRANKSDOB: Community [address] A BPolicy Number: [id number] [id number] Repository [address]Hnj: (330) Date:2017-06-05 [phone] (HP) 06/05/2017 Secondary SHADE A [place] Insurance:CARESOURCE FRANKSDOB: Community JUST FOR MEPolicy [id number] Hospital Number: Repository [id number] Date:4469-41-92GV [address] [place] [address]PD: 06/05/2017 Tertiary Insurance:SELF NOT GIVENUNK [place] PAY INSURANCEPolicy Community Number: Effective Hospital Date:2017-06-05 Repository 05/18/2017 SHADE A Primary SHADE A [place] [id number] Insurance:MEDICARE PART FRANKSDOB: Community [address] A BPolicy Number: [id number] [id number] Repository [address]Znr: (330) Date:2017-05-10 [phone] () 05/18/2017 Secondary SHADE A [place] Insurance:CARESOURCE FRANKSDOB: Community JUST FOR MEPolicy [id number] Hospital Number: Repository [id number] Date:1479-60-25UG[address] [address]NS: 05/18/2017 Tertiary Insurance:SELF NOT GIVENUNK [place] PAY INSURANCEPolicy Community Number: Effective Hospital Date:2017-05-10 Repository 05/15/2017 SHADE A Primary SHADE A [place] [id number] Insurance:MEDICARE PART FRANKSDOB: Community [address] A BPolicy Number: [id number] [id number] Repository [address]Bun: (330) Date:2017-04-10 [phone] () 05/15/2017 Secondary SHADE A [place] Insurance:CARESOURCE FRANKSDOB: Community JUST FOR MEPolicy [id number] Hospital Number: Repository [id number] Date:9357-53-93KO[address] [address]NN: 05/15/2017 Tertiary Insurance:SELF NOT GIVENUNK [place] PAY INSURANCEPolicy Community Number: Effective Hospital Date:2017-05-11 Repository 05/10/2017 SHADE A Primary SHADE A [place] [id number] Insurance:MEDICARE PART FRANKSDOB: Community [address] A BPolicy Number: [id number] [id number] Repository [address]Hxy: (330) Date:2017-04-10 [phone] () 05/10/2017 Secondary SHADE A [place] Insurance:BAYLEE MARTINOB: Community JUST FOR [facility] [id number] Hospital Number: Repository [id number] Date:7738-60-55TS [address] [address]GU: 05/10/2017 Tertiary Insurance:SELF NOT GIVENUNK [place] PAY INSURANCEPolicy Community Number: Effective Hospital Date:2017-04-10 Repository
== END ==
PROVIDERS: Family Provider Internal Medicine; PCP Internal Medicine; Referring Provider Internal Medicine Cardiovascular Disease; Visit Provider Internal Medicine Cardiovascular Disease
DX: R07.89 Other chest pain (principal); I25.10 Atherosclerotic heart disease of native coronary artery without angina pectoris; M54.10 Radiculopathy, site unspecified; E78.1 Pure hyperglyceridemia; E78.00 Pure hypercholesterolemia, unspecified; Z95.5 Presence of coronary angioplasty implant and graft
CPT/HCPCS: 36415; 72100; 80061; 80076; 93017; 93350; J7040; Q9957; A4216; C8928

== ENCOUNTER 2018-06-01 09:00 | Outpatient (RCR) | payer BC, SELFPAY ==
[2016-05-11 14:29] VITALS: BMI 43.3
[2018-05-16 14:32] VITALS: BMI 43.1
[2018-05-25 09:19] VITALS: BP 174/77; PULSE 78; RESP 16; TEMP 37.1; BMI 94.3
--- NOTE | 2018-05-25 11:00 | PCM.WC.HP ---
(1) Diabetes type 2, uncontrolled Status: Acute Current Visit: Yes Code(s): E11.65 - Type 2 diabetes mellitus with hyperglycemia (2) Diabetes, type 1.5, uncontrolled, managed as type 2 Status: Chronic Current Visit: Yes Code(s): E13.65 - Other specified diabetes mellitus with hyperglycemia (3) Chronic hypoxemic respiratory failure Status: Chronic Current Visit: No Code(s): J96.11 - Chronic respiratory failure with hypoxia (4) Chronic wound of head Status: Chronic Current Visit: No Code(s): S01.90XA - Unspecified open wound of unspecified part of head, initial encounter (5) Dyspnea on exertion Status: Chronic Current Visit: No Code(s): R06.09 - Other forms of dyspnea History of Present Illness Date of Service: 05/25/18 Chief Complaint: Evaluate head wound chronic open History of Wound: 62-year-old white male diabetic noncompliant. Has a head ulcer on the nape of his neck. Started in February from his CPAP strap and has done nothing for it has seen in the emergency room where they I&D in February put him on oral antibiotics of cephalexin and it has been open since. He is primary care doctor referred to wound center. 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) Insomnia (Chronic) Pure hypercholesterolemia (Chronic) Essential (primary) hypertension (Chronic) History of coronary artery stent placement (Chronic 05/11/16) PCI-Mid LAD 3.0 x 16 mm Promus Synergy DANIEL Atherosclerosis of coronary artery of [place] heart without angina pectoris (Chronic) PCI-Mid LAD 3.0 x 16 mm Promus Synergy DANIEL Chronic hypoxemic respiratory failure (Chronic) FAVIAN (obstructive sleep apnea) (Chronic) Dyspnea on exertion (Chronic) Acquired left ventricular hypertrophy (Chronic) Abnormal chest xray (Chronic) Chest discomfort (Chronic) Near syncope (Chronic) Overweight (Chronic) Hypoxia (Chronic) Hypertriglyceridemia (Chronic) Morbid obesity with BMI of 40.0-44.9, adult (Chronic) Type 2 diabetes mellitus (Chronic) History of DVT (deep vein thrombosis) (Chronic) Osteoarthritis (Chronic) Past Medical History: Open head wound Surgical History: - - PCI, bilateral total hip repair, Achilles tendon repair left side, left arthroscopic knee surgery, ex lap with bowel resection secondary to perforation, tonsillectomy, appendectomy. Allergies/Adverse Reactions: Allergies No Known Allergies Allergy (Verified 05/16/18 14:35) Home Medications: Ambulatory Orders Medication Instructions Recorded Glimepiride [Amaryl] 4 mg PO BID 01/07/15 Metformin HCl [Glucophage] 1,000 mg PO BIDCM 01/07/15 Metoprolol(XL)Succ [Toprol Xl 100 mg PO BID 01/07/15 (Beta [place])] Potassium Chloride [Klor-Con M20] 40 meq PO TID 06/30/17 amlodipine 10 mg tablet 10 mg PO DAILY #30 tab 07/18/17 clopidogrel 75 mg tablet 75 mg PO DAILY #90 tab 07/18/17 nitroglycerin 0.4 mg sublingual 0.4 mg SUBLINGUAL Q5M PRN #25 tab 07/18/17 tablet albuterol sulfate HFA 90 2 puff INHALATION Q4H PRN PRN #18 g 09/26/17 mcg/actuation aerosol inhaler atorvastatin 80 mg tablet 40 mg PO QHS tab 01/22/18 furosemide 40 mg tablet 40 mg PO BID 01/22/18 naproxen sodium 220 mg capsule 220 mg PO BID PRN 02/08/18 paroxetine 40 mg tablet 40 mg PO DAILY 02/08/18 ranolazine ER 500 mg 500 mg PO QDAY tab 02/08/18 tablet,extended release,12 hr losartan 50 mg tablet 25 mg PO DAILY #30 tab 02/13/18 Ondansetron [Zofran Odt] 8 mg PO Q8H PRN PRN #10 tab 02/23/18 insulin lispro (U- 100) 100 See Rx Instructions SC TID #20 ml 03/12/18 unit/mL subcutaneous solution insulin syringe-needle U-100 1 mL See Dose Instructions .ROUTE 03/13/18 30 gauge x 1/2 .MEDSUPPLY #100 ea insulin detemir (U- 100) 100 55 unit SC BID ml 03/19/18 unit/mL subcutaneous solution icosapent ethyl 1 gram capsule 2 g PO BID #180 cap 03/20/18 aspirin 81 mg chewable tablet 81 mg PO DAILY@0800 #90 tab 03/28/18 metolazone 2.5 mg tablet 2.5 mg PO .COMPLEX #24 tab 03/28/18 - Family History Maternal Family History: Family History (Last Reviewed 05/16/18 @ 14:35 by Maribell Marshall) Mother Colon cancer Sister CAD (coronary artery disease) Diabetes Myocardial infarction, Onset Age: 67 Father Crohns disease Cancer - Colon cancer., Diabetes, High Cholesterol, Heart Disease, Hypertension Paternal Family History: Family History (Last Reviewed 05/16/18 @ 14:35 by Maribell Marshall) Mother Colon cancer Sister CAD (coronary artery disease) Diabetes Myocardial infarction, Onset Age: 67 Father Crohns disease Diabetes, High Cholesterol, Heart Disease, Hypertension Smoking Status: Never smoker Review of Systems Constitutional: Denies: Chills, Fever Eyes: Denies: Blurred vision, Drainage, Pain HEENT: Denies: Difficulty Hearing, Difficulty Swallowing, Sore Throat, Visual Changes Cardiovascular: Denies: Chest Pain, Palpitations, Syncope Respiratory: Denies: Cough, Shortness of Breath Gastrointestinal: Denies: Abdominal Pain, Nausea, Vomiting Genitourinary: Denies: Dysuria, Frequency Musculoskeletal: Denies: Joint Pain, Muscle pain Skin: Reports: Wounds - Open area back of neck. Denies: Jaundice, Rash Neurological: Denies: Balance problems, Change in Speech, Difficulty swallowing, Focal weakness Psychiatric: Denies: Anxiety, Depression Endocrine: Denies: Change in Body Habitus Hematologic/ Lymphatic: Denies: Adenopathy - Physical Exam Vital Signs Temp Pulse Resp BP 98.7 F 78 16 174/77 H 05/25/18 09:19 05/25/18 09:19 05/25/18 09:19 05/25/18 09:19 General: Oriented x3, Cooperative, Well developed HEENT: Atraumatic, PERRLA Oral: Moist Mucosa Neck: Supple, No JVD Lungs: Clear to auscultation, Normal air movement Cardiovascular: Regular rate, Regular Rhythm Abdomen: Bowel Sounds Present, Soft, Non Tender, No Hepato-splenomegaly Extremities: No clubbing, No edema Wound Measurements and Assessment WC - Nurse 1 - General Ulcer Measurement Start: 05/25/18 09:18 Freq: Status: Active Protocol: Activity Type Activity Date Activity User E-Sign Co-Sign Detail Recorded Client Recorded Date Recorded By Document 05/25/18 09:19 [facility] [id number] 05/25/18 09:31 BM 05/25/18 09:19 Wound Center Nurse 1 [Ulcer Assessment] #1 Right posterior neck -Current Size (cm) - Length 0.4 -Current Size (cm) - Width 3.3 -Current Size (cm) - Depth 0.3 -Total Square Cm 1.32 -Date of Last Picture (Recall this 05/25/18 field) -Photo Taken Yes -Epithelialization None Present -Tunneling No -Undermining/Tunneling No -Circular Undermining No -Classification - Thickness Full Thickness without Exposed Support Structure -Exudate Amt None Present -Wound Margin Distinct, Outline Attached -Granulation Amt Small (1-33%) -Granulation Quality Red -Slough/Fibrin Yes -Necrosis Amt Large (67-100%) -Necrotic Tissue Type Adherent Slough -Structure Exposed Fat Layer Exposed -Texture (Patricia-wound Skin Appearance) Assessed Scarring Rash -Moisture (Patricia-wound Skin Appearance Assessed ) -Color (Patricia-wound Skin Appearance) Assessed Erythema -Temperature (Patricia-wound Skin No Abnormality Appearance) (Pt Warm) -Tenderness on Palpation (Patricia-wound Yes Skin Appearance) -Ulcer Cleansing Wound Cleanser -Foul Odor after Cleansing No -Anesthetic Used 5% Lidocaine Gel WC - Nurse 2 - General Ulcer CM Notes Start: 05/25/18 09:18 Freq: Status: Active Protocol: Activity Type Activity Date Activity User E-Sign Co-Sign Detail Recorded Client Recorded Date Recorded By Document 05/25/18 10:04 MW [id number] 05/25/18 10:10 MW 05/25/18 10:04 Wound Center Nurse 2 [Procedure/Treatment] -Time 10:07 -Correct Patient Yes -Correct Side, Site, Position Yes -Correct Procedure Yes -Procedure Performed Yes -Type of Procedure Debridement -Clinical Debridement Subcutaneous -Post Debridement Size (cm) - Length 0.9 -Post Debridement Size (cm) - Width 3.1 -Post Debridement Size (cm) - Depth 0.2 -Total Square Cm 2.79 -Wound/Ulcer Outcome Not Healed -Ulcer Cleansing Rinsed/ Irrigated with Saline -Foul Odor after Cleansing No -Bioengineered Tissue No -Bleeding Controlled with Pressure -Offloading No -Treatment Response Procedure Tolerated Well [See Physician Procedure note for Specifics] Pain Scale: 0-10 Numeric [Pain] -Is Patient Pain Free? Yes Musculoskeletal: No Tenderness to Palpation of Joints or Extremities Lymphatic: No Cervical, Supraclavicular, or Inguinal Adenopathy Neurological: Cranial nerves II-XII grossly intact, Neuro grossly intact Psych/Mental Status: Normal Affect, Appropriate, Alert and oriented to time, place, person, mood and affect Debridement Note Post-Debridement Measurements/Treatment WC - Nurse 2 - General Ulcer CM Notes Start: 05/25/18 09:18 Freq: Status: Active Protocol: Activity Type Activity Date Activity User E-Sign Co-Sign Detail Recorded Client Recorded Date Recorded By Document 05/25/18 10:04 MW [id number] 05/25/18 10:10 MW 05/25/18 10:04 Wound Center Nurse 2 #1 Right posterior neck -Time 10:07 -Correct Patient Yes -Correct Side, Site, Position Yes -Correct Procedure Yes -Procedure Performed Yes -Type of Procedure Debridement -Clinical Debridement Subcutaneous -Post Debridement Size (cm) - Length 0.9 -Post Debridement Size (cm) - Width 3.1 -Post Debridement Size (cm) - Depth 0.2 -Total Square Cm 2.79 -Wound/Ulcer Outcome Not Healed -Ulcer Cleansing Rinsed/ Irrigated with Saline -Foul Odor after Cleansing No -Bioengineered Tissue No -Bleeding Controlled with Pressure -Offloading No -Treatment Response Procedure Tolerated Well Pain Scale: 0-10 Numeric Is Patient Pain Free? Yes Wound debrided: Head wound Type of Debridement: Excisional debridement Anesthesia Used: 5% Lidocaine Gel Depth: Down to and including healthy tissue, in the subcutaneous layer, to muscle Percentage of wound debrided: 100 Instrument Used: 5mm curette Tissue Removed: Fibrin Severity: Limited To Skin Breakdown Amount of bleeding with debridement: Mild Bleeding Controlled with: Compression and gauze Patient tolerated procedure well Assessment/Plan Cultures of the area taken aerobic anaerobic hemoglobin A1c and prealbumin Active Problems (Last Reviewed 05/16/18 @ 14:35 by Maribell Marshall) Diabetes type 2, uncontrolled (Acute) Diabetes, type 1.5, uncontrolled, managed as type 2 (Chronic) Assessment: Head ulcer from a strap. Diabetes type 2 possibly 1.5 uncontrolled. Hypoxia at times. Sleep apnea Plan: Wash area with soap and water apply Aquacel silver moistened gauze and tape every day. Follow-up 1 week
[2018-05-25 13:37] LABS: Hemoglobin A1c 9.5 % (4.2-6.3)
[2018-05-25 13:48] LABS: Prealbumin 26.1 mg/dL (20.0-40.0)
[2018-06-01 09:04] VITALS: BP 130/75; PULSE 73; RESP 18; TEMP 37; BMI 94.3
--- NOTE | 2018-06-01 10:15 | PCM.WC.PN ---
(1) Diabetes type 2, uncontrolled Status: Acute Current Visit: Yes Qualifiers: Glycemic state: with hyperglycemia Qualified Code(s): E11.65 - Type 2 diabetes mellitus with hyperglycemia Code(s): E11.65 - Type 2 diabetes mellitus with hyperglycemia (2) Diabetes, type 1.5, uncontrolled, managed as type 2 Status: Chronic Current Visit: Yes Code(s): E13.65 - Other specified diabetes mellitus with hyperglycemia (3) Chronic hypoxemic respiratory failure Status: Chronic Current Visit: Yes Code(s): J96.11 - Chronic respiratory failure with hypoxia (4) Chronic wound of head Status: Chronic Current Visit: Yes Code(s): S01.90XA - Unspecified open wound of unspecified part of head, initial encounter (5) Dyspnea on exertion Status: Chronic Current Visit: Yes Code(s): R06.09 - Other forms of dyspnea Type of Wound Chief Complaint: Evaluate head wound chronic open History of Wound: 62-year-old white male diabetic noncompliant. Has a head ulcer on the nape of his neck. Started in February from his CPAP strap and has done nothing for it has seen in the emergency room where they I&D in February put him on oral antibiotics of cephalexin and it has been open since. He is primary care doctor referred to wound center. Progress of Wound: Today the patient had started his new antibiotic of Bactrim though the staff that showed was rare we will still treat. He is still having a hard time with the dressing is getting them on himself. The the wound itself is still superficial in nature and he is starting to pad the strap before applying it at night. We will have the nurse to shave more of the area around the wound for him to be able to get the dressing on properly. - Physical Exam Vital Signs Temp Pulse Resp BP 98.6 F 73 18 130/75 H 06/01/18 09:04 06/01/18 09:04 06/01/18 09:04 06/01/18 09:04 General: Oriented x3, Cooperative, Well developed HEENT: Atraumatic, PERRLA Oral: Moist Mucosa Neck: Supple, No JVD Lungs: Clear to auscultation, Normal air movement Cardiovascular: Regular rate, Regular Rhythm Abdomen: Bowel Sounds Present, Soft, Non Tender, No Hepato-splenomegaly Extremities: No clubbing, No edema Skin: Ulcer/ Wound - Nape of neck Wound Measurements and Assessment WC - Nurse 1 - General Ulcer Measurement Start: 05/25/18 09:18 Freq: Status: Active Protocol: Activity Type Activity Date Activity User E-Sign Co-Sign Detail Recorded Client Recorded Date Recorded By Document 06/01/18 09:04 AN [id number] 06/01/18 09:15 AN 06/01/18 09:04 Wound Center Nurse 1 [Ulcer Assessment] #1 Right posterior neck -Current Size (cm) - Length 0.3 -Current Size (cm) - Width 3 -Current Size (cm) - Depth 1 -Total Square Cm 0.9 -Classification - Thickness Full Thickness without Exposed Support Structure -Exudate Amt None Present -Wound Margin Distinct, Outline Attached -Granulation Amt Small (1-33%) -Granulation Quality Red -Slough/Fibrin Yes -Necrosis Amt Large (67-100%) -Necrotic Tissue Type Adherent Slough -Structure Exposed None/Limited to Skin Breakdown -Texture (Patricia-wound Skin Appearance) Assessed Scarring -Moisture (Patricia-wound Skin Appearance Assessed ) -Color (Patricia-wound Skin Appearance) Assessed Erythema -Temperature (Patricia-wound Skin No Abnormality Appearance) (Pt Warm) -Tenderness on Palpation (Patricia-wound Yes Skin Appearance) -Ulcer Cleansing Rinsed/ Irrigated with Saline -Foul Odor after Cleansing No -Anesthetic Used 5% Lidocaine Gel WC - Nurse 2 - General Ulcer CM Notes Start: 05/25/18 09:18 Freq: Status: Active Protocol: Activity Type Activity Date Activity User E-Sign Co-Sign Detail Recorded Client Recorded Date Recorded By Document 06/01/18 09:45 MW [id number] 06/01/18 09:47 MW 06/01/18 09:45 Wound Center Nurse 2 [Procedure/Treatment] -Time 09:46 -Correct Patient Yes -Correct Side, Site, Position Yes -Correct Procedure Yes -Procedure Performed Yes -Type of Procedure Debridement -Clinical Debridement Subcutaneous -Post Debridement Size (cm) - Length 0.5 -Post Debridement Size (cm) - Width 6.0 -Post Debridement Size (cm) - Depth 0.2 -Total Square Cm 3.00 -Wound/Ulcer Outcome Not Healed -Ulcer Cleansing Rinsed/ Irrigated with Saline -Foul Odor after Cleansing No -Bioengineered Tissue No -Bleeding Controlled with Pressure -Offloading No -Treatment Response Procedure Tolerated Well [See Physician Procedure note for Specifics] Pain Scale: 0-10 Numeric [Pain] -Is Patient Pain Free? Yes Musculoskeletal: No Tenderness to Palpation of Joints or Extremities Lymphatic: No Cervical, Supraclavicular, or Inguinal Adenopathy Neurological: Cranial nerves II-XII grossly intact, Neuro grossly intact Psych/Mental Status: Normal Affect, Appropriate Debridement Note Post-Debridement Measurements/Treatment WC - Nurse 2 - General Ulcer CM Notes Start: 05/25/18 09:18 Freq: Status: Active Protocol: Activity Type Activity Date Activity User E-Sign Co-Sign Detail Recorded Client Recorded Date Recorded By Document 05/25/18 10:04 MW [id number] 05/25/18 10:10 MW Document 06/01/18 09:45 MW [id number] 06/01/18 09:47 MW 05/25/18 06/01/18 10:04 09:45 Wound Center Nurse 2 #1 Right posterior neck -Time 10:07 09:46 -Correct Patient Yes Yes -Correct Side, Site, Position Yes Yes -Correct Procedure Yes Yes -Procedure Performed Yes Yes -Type of Procedure Debridement Debridement -Clinical Debridement Subcutaneous Subcutaneous -Post Debridement Size (cm) - Length 0.9 0.5 -Post Debridement Size (cm) - Width 3.1 6.0 -Post Debridement Size (cm) - Depth 0.2 0.2 -Total Square Cm 2.79 3.00 -Wound/Ulcer Outcome Not Healed Not Healed -Ulcer Cleansing Rinsed/ Rinsed/ Irrigated with Irrigated with Saline Saline -Foul Odor after Cleansing No No -Bioengineered Tissue No No -Bleeding Controlled with Pressure Pressure -Offloading No No -Treatment Response Procedure Procedure Tolerated Well Tolerated Well Pain Scale: 0-10 Numeric Is Patient Pain Free? 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 Diabetes type 2 possibly 1.5 uncontrolled. Hypoxia at times. Sleep apnea Plan: Wash area with soap and water apply Aquacel silver moistened gauze and tape every day. Follow-up 1 week
== END 2018-06-07 23:59 ==
LOC: WC 09:00
PROVIDERS: Family Provider Internal Medicine; PCP Internal Medicine; Visit Provider Nurse Practitioner
DX: E13.622 Other specified diabetes mellitus with other skin ulcer (principal); E13.65 Other specified diabetes mellitus with hyperglycemia; L98.491 Non-pressure chronic ulcer of skin of other sites limited to breakdown of skin; J96.11 Chronic respiratory failure with hypoxia; Z91.19 Patient's noncompliance with other medical treatment and regimen; I25.10 Atherosclerotic heart disease of native coronary artery without angina pectoris; Z86.718 Personal history of other venous thrombosis and embolism; E66.01 Morbid (severe) obesity due to excess calories; Z68.41 Body mass index [BMI] 40.0-44.9, adult; Z71.3 Dietary counseling and surveillance; M19.90 Unspecified osteoarthritis, unspecified site; G47.33 Obstructive sleep apnea (adult) (pediatric); E78.1 Pure hyperglyceridemia; Z79.82 Long term (current) use of aspirin; Z79.4 Long term (current) use of insulin; Z79.899 Other long term (current) drug therapy
CPT/HCPCS: 11042; 83036; 84134; 87070; 87075; 87077; 87186; 87205; 99213; G0463

== ENCOUNTER 2018-06-06 13:30 | Outpatient (RCR) | payer BC, SELFPAY ==
[2016-05-11 14:29] VITALS: BMI 43.3
[2018-04-10 01:26] VITALS: BMI 40.6
[2018-05-16 14:32] VITALS: BMI 43.1
== END 2018-06-07 23:59 ==
LOC: DC 13:30
PROVIDERS: Family Provider Internal Medicine; PCP Internal Medicine; Visit Provider Internal Medicine
DX: E11.9 Type 2 diabetes mellitus without complications (principal); Z71.3 Dietary counseling and surveillance
CPT/HCPCS: 97803

== ENCOUNTER 2018-06-08 08:55 | Outpatient (RCR) | payer BC, SELFPAY ==
[2016-05-11 14:29] VITALS: BMI 43.3
[2018-06-08 01:39] VITALS: BP 130/75; PULSE 73; RESP 18; TEMP 37; BMI 94.3
[2018-06-08 09:17] VITALS: BP 139/76; PULSE 73; RESP 20; TEMP 37.3; BMI 94.3
== END 2018-07-08 23:59 ==
LOC: WC 08:55
PROVIDERS: Family Provider Internal Medicine; PCP Internal Medicine; Visit Provider Nurse Practitioner
DX: Z09 Encounter for follow-up examination after completed treatment for conditions other than malignant neoplasm (principal)
CPT/HCPCS: 99212; G0463

== ENCOUNTER 2018-06-20 13:27 | Outpatient (RCR) | payer BC, SELFPAY ==
[2016-05-11 14:29] VITALS: BMI 43.3
[2018-06-08 00:18] VITALS: BMI 43.1
== END 2018-07-08 23:59 ==
LOC: DC 13:27
PROVIDERS: Family Provider Internal Medicine; PCP Internal Medicine; Visit Provider Internal Medicine
DX: E11.9 Type 2 diabetes mellitus without complications (principal); Z71.3 Dietary counseling and surveillance
CPT/HCPCS: G0108

== ENCOUNTER → 2018-07-13 11:53 | Outpatient (CLI) | payer MEDICARE, SELFPAY ==
[2016-05-11 14:29] VITALS: BMI 43.3
[2018-07-13 11:08] VITALS: BMI 94.3
[2018-07-13 14:26] LABS: Anion Gap 4 (5-15); BUN 25 mg/dL (7-18); BUN/Creat Ratio 28.9 RATIO (10-20); Calcium,Total 10.4 mg/dL (8.5-10.1); Chloride 104 mmol/L (98-107); Creatinine, Serum 0.86 mg/dL (0.70-1.30); EST Glomerular Filtration Rate 95 mL/min (>60); Est Glom Filt Rate - Afr Amer 115 mL/min (>60); Glucose 180 mg/dL (74-106); Potassium 4.1 mmol/L (3.5-5.1); Sodium Level 139 mmol/L (136-145)
== END ==
PROVIDERS: Family Provider Internal Medicine; PCP Internal Medicine; Visit Provider Internal Medicine
DX: I10 Essential (primary) hypertension (principal)
CPT/HCPCS: 36415; 80048

== ENCOUNTER → 2018-07-23 | Outpatient (CLI) | payer MEDICARE, SELFPAY ==
[2016-05-11 14:29] VITALS: BMI 43.3
[2018-07-23 08:15] VITALS: BMI 94.3
[2018-07-23 12:45] LABS: AST(SGOT) 45 U/L (15-37); Alanine Aminotransfer ALT/SGPT 75 U/L (16-61); Albumin, Serum 3.8 g/dL (3.2-5.0); Alkaline Phosphatase 63 U/L (45-117); Anion Gap 10 (5-15); BUN 36 mg/dL (7-18); Calcium,Total 11.5 mg/dL (8.5-10.1); Chloride 99 mmol/L (98-107); Creatinine, Serum 1.16 mg/dL (0.70-1.30); EST Glomerular Filtration Rate 68 mL/min (>60); Est Glom Filt Rate - Afr Amer 82 mL/min (>60); Globulin 3.9 g/dL (2.2-4.2); Glucose 233 mg/dL (74-106); Potassium 3.8 mmol/L (3.5-5.1); Protein, Total 7.7 g/dL (6.4-8.2); Sodium Level 138 mmol/L (136-145)
== END | disposition home or self-care (01) ==
LOC: BIMLAB 08:45
PROVIDERS: Family Provider Internal Medicine; PCP Internal Medicine; Visit Provider Internal Medicine
DX: E11.8 Type 2 diabetes mellitus with unspecified complications (principal)
CPT/HCPCS: 80053

== ENCOUNTER → 2018-08-04 | Outpatient (CLI) | payer MEDICARE, SELFPAY ==
[2016-05-11 14:29] VITALS: BMI 43.3
[2018-07-23 08:15] VITALS: BMI 94.3
--- NOTE | 2018-08-04 07:45 | MRI_ITS ---
STUDY: MRI CERVICAL SPINE WITHOUT CONTRAST REASON FOR EXAM: Male, 62 years old. Neck pain. Bilateral shoulder pain. TECHNIQUE: Standardized fat and water weighted pulse sequences were obtained in the sagittal and axial planes. COMPARISON: None. FINDINGS: Normal foramen magnum and brainstem-cervical cord junction. Normal craniovertebral junction. Normal anterior atlantoaxial articulation. Normal odontoid process. Cervical straightening. No acute fracture line. No dislocation. No cortical destruction. C2-3: Normal endplates. Normal disc height, signal and morphology. Normal central canal and intervertebral neural foramina. C3-4: Normal endplates. Normal disc height, signal and morphology. Normal central canal and intervertebral neural foramina. C4-5: Moderate endplate spondylosis. Disc bulge/osteophyte complex with mild/moderate central canal narrowing. Severe left and mild right neural foraminal narrowing. Mild facet joint arthrosis. C5-6: Moderate endplate spondylosis. Disc bulge/osteophyte complex with mild central canal narrowing. Mild bilateral neural foraminal narrowing. Mild facet joint arthrosis. C6-7: Normal endplates. Disc bulge/osteophyte complex without central canal narrowing. Severe right and mild left neural foraminal narrowing. Mild facet joint arthrosis. C7-T1: Normal endplates. Left paracentral disc extrusion with mild to moderate central canal narrowing (axial images 2 through 4 series 9). Extruded disc components extend slightly cephalad. Severe left and mild right neural foraminal narrowing. Disc extrusion measures approximately 5 mm x 13 mm x 14 mm. T1-T2 (sagittal images only): Shallow disc bulge without central canal narrowing. Normal soft tissue structures. Vascular flow voids maintained. No abnormal cord signal. MRI/Spine Cervical (Routine) IMPRESSION: No abnormal cord signal Multilevel intervertebral disc disease (C7-T1 extrusion) with mild/moderate central canal narrowing Multilevel moderate/severe neural foramina narrowing predominating at C4-5, C6-7 and C7-T1 Cervical straightening with osseous degenerative changes Electronically Signed: Clay Rankin DO at 10:17 EDT Tel , Service support ,
--- NOTE | 2018-08-04 08:50 | RAD_ITS ---
STUDY: X-RAY - CERVICAL SPINE REASON FOR EXAM: Male, 62 years old. Neck pain. TECHNIQUE: 4 view(s) of the cervical spine were obtained. COMPARISON: None FINDINGS: Normal anterior atlantoaxial articulation. Normal odontoid process. Normal cervical lordosis. Normal vertebral bodies and endplates. There is intervertebral disc space narrowing with osteophyte formation most marked at C4-5, C5-6 and C6-7. There is diffuse uncovertebral and facet sclerosis. The soft tissue structures are unremarkable. RAD/Cerv Spine 2 or 3 Views IMPRESSION: Moderate lower cervical spondylosis as described. Electronically Signed: Wagner Sherman MD at 21:51 EDT , Service support ,
== END | disposition home or self-care (01) ==
LOC: MRI 07:28
PROVIDERS: Family Provider Internal Medicine; PCP Internal Medicine; Referring Provider Anesthesiology Pain Medicine; Visit Provider Anesthesiology Pain Medicine
DX: M54.2 Cervicalgia (principal); M79.603 Pain in arm, unspecified
CPT/HCPCS: 72040; 72141

== ENCOUNTER → 2018-08-20 15:14 | Outpatient (CLI) | payer MEDICARE, SELFPAY ==
[2016-05-11 14:29] VITALS: BMI 43.3
[2018-07-23 08:15] VITALS: BMI 94.3
--- NOTE | 2018-08-20 15:19 | RAD_ITS ---
STUDY: X-RAY - RIGHT SHOULDER REASON FOR EXAM: Male, 62 years old. Chronic shoulder pain. TECHNIQUE: 4 view(s) of the shoulder. COMPARISON: None. FINDINGS: There is severe degenerative arthrosis of the glenohumeral articulation. There is hypertrophic osteoarthrosis of the acromioclavicular joint with inferior osseous spur formation. Normal acromion. There is an enthesopathic erosion of the humeral head. There is a 1.5 cm x 1.4 cm well-defined bony density along the medial aspect of the humeral head. This may represent a loose body. The soft tissue structures are unremarkable. Normal visualized pulmonary apex. RAD/Shoulder min 2 Views IMPRESSION: Marked degree of osteoarthritis of the glenohumeral joint with subchondral cysts. Electronically Signed: Rodrigo Suarez, at 8:33 EDT , Service support ,
--- NOTE | 2018-08-20 15:19 | RAD_ITS ---
STUDY: X-RAY - LEFT SHOULDER REASON FOR EXAM: Male, 62 years old. Chronic pain. TECHNIQUE: 4 view(s) of the shoulder. COMPARISON: None. FINDINGS: There is severe degenerative arthrosis of the glenohumeral articulation. Normal acromioclavicular joint. Normal acromion. Prominent degenerative spur along the inferior medial aspect of the humeral head. The soft tissue structures are unremarkable. Normal visualized pulmonary apex. RAD/Shoulder min 2 Views IMPRESSION: Marked degree of osteoarthritis of the glenohumeral joint. Prominent degenerative spur along the inferior medial aspect of the humeral head. Electronically Signed: Rodrigo Suarez, at 8:34 EDT , Service support ,
== END ==
PROVIDERS: Family Provider Internal Medicine; PCP Internal Medicine; Referring Provider Anesthesiology Pain Medicine; Visit Provider Anesthesiology Pain Medicine
DX: M25.519 Pain in unspecified shoulder (principal)
CPT/HCPCS: 73030

== ENCOUNTER → 2018-08-21 11:45 | Outpatient (CLI) | payer MEDICARE, SELFPAY ==
[2016-05-11 14:29] VITALS: BMI 43.3
[2018-08-21 11:20] VITALS: BMI 42.2
[2018-08-21 13:01] LABS: Anion Gap 11 (5-15); BUN 30 mg/dL (7-18); BUN/Creat Ratio 30.3 RATIO (10-20); Calcium,Total 10.2 mg/dL (8.5-10.1); Chloride 102 mmol/L (98-107); Creatinine, Serum 0.99 mg/dL (0.70-1.30); EST Glomerular Filtration Rate 82 mL/min (>60); Est Glom Filt Rate - Afr Amer 99 mL/min (>60); Glucose 205 mg/dL (74-106); Sodium Level 140 mmol/L (136-145)
== END ==
PROVIDERS: Family Provider Internal Medicine; PCP Internal Medicine; Visit Provider Internal Medicine
DX: I10 Essential (primary) hypertension (principal)
CPT/HCPCS: 36415; 80048

== ENCOUNTER → 2018-08-22 | Outpatient (CLI) | payer MEDICARE, SELFPAY ==
[2016-05-11 14:29] VITALS: BMI 43.3
[2018-07-23 08:15] VITALS: BMI 94.3
[2018-08-21 11:20] VITALS: BMI 42.2
--- NOTE | 2018-08-22 10:24 | NEURO_ITS ---
NCS and/or EMG Patient Report Ordering Doctor: Bill Helms DATE OF SERVICE: 08/22/18 This is a bilateral upper extremity nerve conduction study in the right upper extremity EMG performed on this 62-year-old male with a history of pain and burning in his hands for several years, worse on the right. He did have a whiplash injury one year ago but is recovered. There is also a history of diabetes with a hemoglobin A1c most recently at 9.5. He describes symptoms as affecting on both sides his first and fifth digits but again this is worse on the right side. Bilateral upper extremity sensory and motor nerve conduction study is performed. The median motor and sensory distal latencies are moderate to severely prolo nged more so on the right side with mild reduction of amplitudes and moderate reduction of conduction velocities. The ulnar motor amplitudes are diffusely suppressed more so on the left side and on the right side there is decreased conduction velocity. Distal latencies are also prolonged. The radial sensory responses are intact. The median F waves are bilaterally prolonged and the left ulnar F-wave is prolonged. Right upper extremity needle electromyography is performed. Muscles evaluated included the abductor pollicis brevis, first dorsal interosseous, abductor digiti quinti, brachioradialis, biceps, triceps, and C6, 7 and 8 paraspinal musculature on the right. The abductor pollicis brevis as well as the first dorsal interosseous and abductor digiti quinti all demonstrated large motor units with early recruitment, and 1+ fibrillation potentials. More proximally C8 muscles were normal including cervical paraspinal muscles. More proximal muscles demonstrated normal insertional activity with absence of pathologic spontaneous activity and normal motor unit recruitment pattern as well as amplitude. 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 The patient's diabetes may be a contributing factor to his neuropathy.
== END | disposition home or self-care (01) ==
PROVIDERS: Family Provider Internal Medicine; PCP Internal Medicine; Referring Provider Anesthesiology Pain Medicine; Visit Provider Anesthesiology Pain Medicine
DX: M79.641 Pain in right hand (principal); M79.671 Pain in right foot; M79.672 Pain in left foot
CPT/HCPCS: 95886; 95911

== ENCOUNTER → 2018-09-17 16:08 | Outpatient (CLI) | payer MEDICARE, SELFPAY ==
[2016-05-11 14:29] VITALS: BMI 43.3
[2018-08-21 11:20] VITALS: BMI 42.2
--- NOTE | 2018-09-17 16:14 | RAD_ITS ---
STUDY: X-RAY - LUMBAR SPINE REASON FOR EXAM: Male, 62 years old. Pain TECHNIQUE: 2 view(s) of the lumbar spine were obtained. COMPARISON: 03/28/2018 FINDINGS: There is no evidence of fracture or dislocation in the lumbar spine. The vertebral body heights are well-maintained. There are stable mild multilevel degenerative changes. RAD/Lumbar Spine 2 or 3 Views IMPRESSION: No fracture or dislocation in the lumbar spine. Stable mild multilevel degenerative change. Electronically Signed: Nathan Montes De Oca, at 17:37 EDT Tel , Service support ,
== END ==
PROVIDERS: Family Provider Internal Medicine; PCP Internal Medicine; Referring Provider Anesthesiology Pain Medicine; Visit Provider Anesthesiology Pain Medicine
DX: M54.5 Low back pain (principal)
CPT/HCPCS: 72100

== ENCOUNTER → 2018-11-07 | Outpatient (CLI) | payer MEDICARE, SELFPAY ==
[2016-05-11 14:29] VITALS: BMI 43.3
[2018-10-08 14:15] VITALS: BMI 42.2
[2018-11-07 09:18] LABS: AST(SGOT) 44 U/L (15-37); Alanine Aminotransfer ALT/SGPT 86 U/L (16-61); Albumin, Serum 4.1 g/dL (3.2-5.0); Alkaline Phosphatase 58 U/L (45-117); Bilirubin, Direct 0.15 mg/dL (0.00-0.30); Cholesterol 130 mg/dL (200); Globulin 3.5 g/dL (2.2-4.2); High Density Lipoprotein 29 mg/dL; Protein, Total 7.6 g/dL (6.4-8.2); Triglycerides 285 mg/dL; Very Low Density Lipoprotein 57 mg/dL (5-40)
== END | disposition home or self-care (01) ==
LOC: LAB 08:07
PROVIDERS: Family Provider Internal Medicine; PCP Internal Medicine; Referring Provider Internal Medicine Cardiovascular Disease; Visit Provider Internal Medicine Cardiovascular Disease
DX: E11.65 Type 2 diabetes mellitus with hyperglycemia (principal); I25.10 Atherosclerotic heart disease of native coronary artery without angina pectoris; E78.1 Pure hyperglyceridemia; E78.00 Pure hypercholesterolemia, unspecified
CPT/HCPCS: 36415; 80061; 80076

== ENCOUNTER → 2018-11-08 | Outpatient (CLI) | payer MEDICARE, SELFPAY ==
[2016-05-11 14:29] VITALS: BMI 43.3
[2018-10-08 14:15] VITALS: BMI 42.2
[2018-11-07 08:42] VITALS: BMI 42.2
--- NOTE | 2018-11-08 09:51 | ECHOCS_ITS ---
Reason For Study: PHTN Procedure This was a 2D Doppler, Color Flow transthoracic echocardiogram. Contrast injection was performed. The study was technically difficult. Exam performed in department. Left Ventricle Moderate concentric left ventricular hypertrophy. The estimated ejection fraction is 65 %. Normal diastology for age. No regional wall motion abnormalities noted. Right Ventricle Moderately dilated right ventricle. Normal systolic function. Atria The left atrium is moderately enlarged. Normal right atrium. Normal atrial septum. Mitral Valve The mitral valve is structurally normal. No prolapse or stenosis seen. Mild (1+) mitral valve insufficiency. Tricuspid Valve Normal tricuspid valve. Trivial tricuspid valve insufficiency. Right ventricular systolic pressure estimated to be 31 mmHg. Aortic Valve Trisinus/trileaflet aortic valve. Mild focal aortic valve thickening. Trivial aortic valve insufficiency. Pulmonic Valve Normal pulmonic valve. Great Vessels Normal aortic root. Normal arch. Normal inferior vena cava. Inferior vena cava collapse with sniff. Pericardium/Pleural No pericardial effusion. Medication 22 gauge I.V. with prn adaptor inserted into right arm. Diluted definity 3ml given slow IV push to enhance endocardial definition. MMode/2D Measurements & Calculations LVIDd: 5.7 cm IVSd: 1.7 cm Ao root diam: 3.9 cm LVIDs: 3.9 cm LVPWd: 1.6 cm RVDd: 4.9 cm FS: 31.0 % LAV(MOD-bp): 86.4 ml EDV(MOD-sp4): 173.5 ml EDV(MOD-sp2): 138.8 ml LAV(MOD-bp) Indexed: 34.8 ml/m2 ESV(MOD-sp4): 56.0 ml EF(MOD-sp2): 72.5 % LAV(MOD-sp2): 72.4 ml EF(MOD-sp4): 67.7 % LAV(MOD-sp4): 99.5 ml SV(MOD-sp4): 117.5 ml SV(MOD-sp2): 100.6 ml LA A4 area: 27.5 cm2 LA dimension(2D): 4.8 cm RA A4 area: 19.7 cm2 Time Measurements MV dec time: 0.23 sec Doppler Measurements & Calculations MV E max manuel: 80.9 cm/sec Lat Peak E' Manuel: 9.0 cm/sec Med Peak E' Manuel: 5.3 cm/sec MV A max manuel: 63.8 cm/sec E/E' lat: 9.0 E/E' med: 15.3 MV E/A: 1.3 Ao V2 max: 165.3 cm/sec AI max manuel: 327.8 cm/sec LV V1 max: 110.8 cm/sec Ao max P.9 mmHg AI max P.1 mmHg LV V1 max P.9 mmHg AI dec slope: 249.0 cm/sec2 AI P1/2t: 385.6 msec TR max manuel: 274.3 cm/sec TR max P.2 mmHg Interpretation Summary Moderate concentric left ventricular hypertrophy. The estimated ejection fraction is 65 %. Normal diastology for age. Moderately dilated right ventricle. The left atrium is moderately enlarged. Mild (1+) mitral valve insufficiency. Trivial tricuspid valve insufficiency. Right ventricular systolic pressure estimated to be 31 mmHg. Trivial aortic valve insufficiency. Compared to echo report dated 09/30/2015, LV function has remained the same, but RV has gone from normal to moderately enlarged. RVSP has gone from 22 to 31 mm Hg. The study was technically difficult. Contrast injection was performed. Ordering Physician: Harinder Gracia Referring Physician: Mery Raymond Performed By: Yumi Ortiz, RDCS, RVT
== END | disposition home or self-care (01) ==
LOC: CVS 09:51
PROVIDERS: Family Provider Internal Medicine; PCP Internal Medicine; Referring Provider Internal Medicine Cardiovascular Disease; Visit Provider Internal Medicine Cardiovascular Disease
DX: I27.20 Pulmonary hypertension, unspecified (principal); I25.10 Atherosclerotic heart disease of native coronary artery without angina pectoris; R06.09 Other forms of dyspnea; G47.33 Obstructive sleep apnea (adult) (pediatric)
CPT/HCPCS: 93306; Q9957; A4216; C8929

== ENCOUNTER → 2018-11-14 10:40 | Outpatient (CLI) | payer MEDICARE, SELFPAY ==
[2016-05-11 14:29] VITALS: BMI 43.3
[2018-10-08 14:15] VITALS: BMI 42.2
[2018-11-07 08:42] VITALS: BMI 42.2
--- NOTE | 2018-11-14 10:41 | STEWCON_ITS ---
Reason For Study: Chest Pain; CAD Stress Results Protocol: Dobutamine Stress Echo Maximum Predicted HR: 159 bpm Target HR: 135 bpm % Maximum Predicted HR: 81 % DurationHeart Rate Stage (mm:ss) (bpm) BP Comment Baseline 68 147/78No Chest Pain; Diluted Definity 4.5 ML Given DSE 10 MCG 3:04 69 145/80No Chest Pain DSE 20 MCG 3:00 83 161/89No Chest Pain DSE 30 MCG 3:00 88 196/81No Chest Pain; Atropine 0.25 MG IVP DSE 40 MCG 5:34 129 176/85No Chest Pain; Atropine 0.75 MG IVP Recovery 96 138/88No Chest Pain Stress Duration: 14:38 mm:ss Maximum Stress HR: 129 bpm METS: 1 Baseline Echocardiogram Findings The estimated ejection fraction is 65 %. Stress Echo Wall motion Data Resting WM Intermediate WM Stress WM Resting Wall Motion Wall Motion Stress No regional wall motion No regional wall motion abnormalities noted. abnormalities noted. EKG Data The baseline ECG displays normal sinus rhythm. The patient was titrated from 10 mcg to a maximum of 40 mcg of dobutamine during the stress. The maximum heart rate attained was 129 beats per minute. This was 85% of maximum predicted heart rate. At peak infusion, upsloping ST changes only were noted, which did not meet the criteria for ischemia. No clinical angina was noted. Interpretation Summary The estimated ejection fraction is 65 %. Normal, adequate, dobutamine echocardiogram. Negative for ischemia by EKG and echocardiographic criteria. No anginal symptoms noted. Rare PVCs noted. Patient did develop nonspecific ST segment depression during infusion which resolved by 7 minutes 50 seconds into recovery. This is similar to what happened on his previous dobutamine echocardiogram in 2016 and 2018. No associated wall motion normalities noted. Decreased sensitivity due to poor echo windows requiring Definity agent. Final LVEF of 75%. No complications. The study was technically difficult. Contrast injection was performed. Ordering Physician: Harinder Gracia Referring Physician: Mery Raymond Performed By: Arthur Mazariegos, [facility]
== END ==
PROVIDERS: Family Provider Internal Medicine; PCP Internal Medicine; Referring Provider Internal Medicine Cardiovascular Disease; Visit Provider Internal Medicine Cardiovascular Disease
DX: I25.10 Atherosclerotic heart disease of native coronary artery without angina pectoris (principal); R06.09 Other forms of dyspnea
CPT/HCPCS: 93017; 93350; J7040; Q9957; A4216; C8928

== ENCOUNTER → 2019-05-06 | Outpatient (CLI) | payer MEDICARE, SELFPAY ==
[2016-05-11 14:29] VITALS: BMI 43.3
[2019-05-06 10:59] VITALS: BMI 45.4
[2019-05-06 12:26] LABS: Absolute Lymphocyte Count 0.88 X10^3/uL (0.83-4.51); Absolute Neutrophil Count 5.1 X10^3/uL (2.0-7.7); Basophil# 0.04 X10^3/uL; Basophil% 0.6 % (0-1); Eosinophil# 0.16 X10^3/uL; Eosinophils% 2.3 % (0-5); Hematocrit 46.9 % (40-54); Hemoglobin 15.5 g/dL (13.0-16.5); Lymphocyte # 0.88 X10^3/ul (4.0); Lymphocyte % 12.4 % (19-41); Mean Corpuscular Hgb 29.9 pg (27.0-32.0); Mean Corpuscular Volume 90.5 fL (80-94); Mean Platelet Vol. 9.9 fl (6.2-12.0); Monocyte# 0.85 X10^3/uL; NRBC Flagged by Analyzer 0 % (0-5); Platelet Count 248 K/mm3 (150-450); RBC Distribution Width CV 13.7 % (11.6-14.6); RBC Distribution Width SD 46.1 fl (35.1-43.9); Red Blood Count 5.18 M/mm3 (4.6-6.2); White Blood Count 7.1 K/mm3 (4.4-11.0)
[2019-05-06 13:12] LABS: ALB/GLOB Ratio 1.1 RATIO (0.9-2.4); AST(SGOT) 37 U/L (15-37); Alanine Aminotransfer ALT/SGPT 81 U/L (16-61); Alkaline Phosphatase 75 U/L (45-117); Anion Gap 9 (5-15); BUN 35 mg/dL (7-18); BUN/Creat Ratio 30.7 RATIO (10-20); Calcium,Total 11.5 mg/dL (8.5-10.1); Chloride 101 mmol/L (98-107); Creatinine, Serum 1.14 mg/dL (0.70-1.30); EST Glomerular Filtration Rate 69 mL/min (>60); Est Glom Filt Rate - Afr Amer 84 mL/min (>60); Globulin 3.5 g/dL (2.2-4.2); Glucose 244 mg/dL (74-106); Potassium 3.4 mmol/L (3.5-5.1); Protein, Total 7.5 g/dL (6.4-8.2); Sodium Level 138 mmol/L (136-145)
== END | disposition home or self-care (01) ==
LOC: BIMLAB 11:35
PROVIDERS: PCP Internal Medicine; Referring Provider Internal Medicine; Visit Provider Internal Medicine
DX: I10 Essential (primary) hypertension (principal)
CPT/HCPCS: 36415; 80053; 85025

== ENCOUNTER → 2019-09-23 11:51 | Outpatient (CLI) | payer MEDICARE, SELFPAY ==
[2016-05-11 14:29] VITALS: BMI 43.3
[2019-09-23 11:20] VITALS: BMI 45.4
[2019-09-23 15:43] LABS: AST(SGOT) 53 U/L (15-37); Alanine Aminotransfer ALT/SGPT 87 U/L (16-61); Albumin, Serum 3.8 g/dL (3.2-5.0); Alkaline Phosphatase 75 U/L (45-117); Anion Gap 9 (5-15); BUN 29 mg/dL (7-18); BUN/Creat Ratio 26.9 RATIO (10-20); Calcium,Total 11.9 mg/dL (8.5-10.1); Chloride 99 mmol/L (98-107); Cholesterol 161 mg/dL (200); Creatinine, Serum 1.08 mg/dL (0.70-1.30); EST Glomerular Filtration Rate 73 mL/min (>60); Est Glom Filt Rate - Afr Amer 89 mL/min (>60); Glucose 236 mg/dL (74-106); High Density Lipoprotein 25 mg/dL; Potassium 3.9 mmol/L (3.5-5.1); Protein, Total 7.8 g/dL (6.4-8.2); Sodium Level 138 mmol/L (136-145); Triglycerides 352 mg/dL; Very Low Density Lipoprotein 70 mg/dL (5-40)
[2019-09-23 19:40] LABS: Calcium, Urine (Random) 17.1 mg/dL (Not Estab.)
[2019-09-24 09:05] LABS: PTHIN 64.9 pg/mL (18.4-80.1)
== END ==
PROVIDERS: PCP Internal Medicine; Referring Provider Internal Medicine; Visit Provider Internal Medicine
DX: E83.52 Hypercalcemia (principal); E11.9 Type 2 diabetes mellitus without complications; I10 Essential (primary) hypertension; E78.5 Hyperlipidemia, unspecified
CPT/HCPCS: 36415; 80053; 80061; 82340; 83970

== ENCOUNTER 2019-10-22 14:19 | Emergency (ER) | payer MEDICARE, SELFPAY ==
[2016-05-11 14:29] VITALS: BMI 43.3
[2019-10-22] VITALS (7 sets, daily range): BP systolic 105–160; BP diastolic 51–81; PULSE 69–75; RESP 17–22; TEMP 37–37.2; O2SAT 92–96; BMI 44.4; BMI 45.4
--- NOTE | 2019-10-22 14:47 | EKG12_ITS ---
Test Reason : SOB Blood Pressure : / mmHG Vent. Rate : 071 BPM Atrial Rate : 071 BPM P-R Int : 226 ms QRS Dur : 100 ms QT Int : 386 ms P-R-T Axes : 067 013 049 degrees QTc Int : 419 ms Sinus rhythm with 1st degree A-V block Septal infarct , age undetermined Abnormal ECG Confirmed by BAILEE PIZANO, NII ([id number]), legal editor NAZ NORIEGA ([id number]) on 10/24/2019 9:40:56 AM Referred By: DC Confirmed By:NII MOROCHO MD
[2019-10-22 15:04] LABS: Absolute Lymphocyte Count 1.04 X10^3/uL (0.83-4.51); Absolute Neutrophil Count 5.5 X10^3/uL (2.0-7.7); Basophil# 0.05 X10^3/uL; Basophil% 0.6 % (0-1); Eosinophil# 0.39 X10^3/uL; Eosinophils% 4.9 % (0-5); Hematocrit 45.2 % (40-54); Hemoglobin 14.5 g/dL (13.0-16.5); Lymphocyte # 1.04 X10^3/ul (4.0); Lymphocyte % 13.1 % (19-41); Mean Corp Hgb Conc 32.1 g/dL (32-36); Mean Corpuscular Hgb 29.9 pg (27.0-32.0); Mean Corpuscular Volume 93.2 fL (80-94); Mean Platelet Vol. 9.8 fl (6.2-12.0); Monocyte# 0.91 X10^3/uL; Monocyte% 11.5 % (0-10); NRBC Flagged by Analyzer 0 % (0-5); Neutrophil # 5.46 X10^3/uL (2.7-7.7); Neutrophil % 69.1 % (47-70); Platelet Count 246 K/mm3 (150-450); RBC Distribution Width CV 14.3 % (11.6-14.6); RBC Distribution Width SD 48.6 fl (35.1-43.9); Red Blood Count 4.85 M/mm3 (4.6-6.2); White Blood Count 7.9 K/mm3 (4.4-11.0)
--- NOTE | 2019-10-22 15:05 | RAD_ITS ---
STUDY: X-RAY CHEST REASON FOR EXAM: Male, 63 years old. Pat arrives to ed with sob and chest tightness for weeks. Hx of copd. TECHNIQUE: Single AP portable view of the chest. COMPARISON: Comparison is made with prior study of June 10, 2017. FINDINGS: EKG electrodes are seen. Stable elevation of the right diaphragm. There is no demonstrated pleural abnormality. There is borderline cardiomegaly. Normal mediastinum and sue. Normal visualized pulmonary arteries. There is atherosclerotic tortuosity of the aortic arch and descending thoracic aorta. There are diffuse degenerative changes of the visualized thoracic spine. Normal visualized ribs, clavicles, and shoulders. There is no demonstrated abnormality of the visualized soft tissue structures of the upper abdomen. RAD/Chest 1 View (Portable) IMPRESSION: Borderline cardiomegaly. No acute abnormality is seen. Electronically Signed: Rodrigo Suarez, at 15:35 EDT , Service support ,
[2019-10-22 15:23] LABS: Anion Gap 7 (5-15); BUN 24 mg/dL (7-18); BUN/Creat Ratio 23.5 RATIO (10-20); Calcium,Total 10.2 mg/dL (8.5-10.1); Chloride 105 mmol/L (98-107); Creatinine, Serum 1.02 mg/dL (0.70-1.30); EST Glomerular Filtration Rate 78 mL/min (>60); Est Glom Filt Rate - Afr Amer 95 mL/min (>60); Estimated Creatinine Clearance 77.53 ml/min; Glucose 231 mg/dL (74-106); Potassium 4.4 mmol/L (3.5-5.1); Sodium Level 140 mmol/L (136-145)
[2019-10-22] MEDS: Ipratropium/Albuterol Sulfate 3 ML AMPUL.NEB INHALATION (16:12)
[2019-10-22 16:37] LABS: D-Dimer Quantitative (DVT/PE) 0.38 FEU/ug/m (0.27-0.49)
--- NOTE | 2019-10-22 17:21 | ED.VISSUMM ---
- ER Visit Summary Date of Service: 10/22/19 Chief Complaint: Shortness of breath History of Present Illness: The patient is a 63 M who presents with shortness of breath that began today. Patient states it came on while he was walking to his car from the laundromat. Patient states that when he got to his car he felt out of breath. Patient states that when he walked back into the laundromat he also felt like he was out of breath. Patient states he tried taking his inhaler with no improvement. Patient admits to some tightness across his chest. Patient denies any fevers. Patient does admit to a sore throat. Patient does admit to some pain in his back between his shoulder blades. Patient describes this as a dull aching. Patient states his symptoms feel similar to when he had a pulmonary embolism. Physical Examination: Vital signs are stable. Patient is afebrile. Patient is in no acute distress. Oral mucosa is pink and moist. Neck is supple. Trachea is midline. There is no JVD. Heart was regular rate and rhythm. Lungs are slightly diminished in the bases bilaterally. There is good respiratory effort noted. Abdomen is soft. Bowel sounds are normal. There is no tenderness. Cranial nerves II through XII are intact. There are no focal motor or sensory deficits noted. Extremities are intact. There is no calf tenderness or edema. Test Results: EKG showed normal sinus rhythm with a rate of 71. There are no acute ST or T wave changes. Portable chest x-ray shows borderline cardiomegaly but no acute cardiopulmonary process. This was interpreted by the radiologist and myself. CBC was normal. Basic metabolic profile shows slightly elevated BUN of 24 and an elevated glucose of 231. Troponin was normal. D-dimer was normal. Emergency Department Course and Treatment: Patient was given a DuoNeb aerosol here. Patient was feeling better on reevaluation. Patient was instructed to follow-up with his primary care physician in 5 to 7 days. Patient understood and was agreeable with plan. All questions were answered. Disposition: Discharge home Impression: COPD exacerbation This note was generated with [employer] software. It may contain incorrect words, spelling, and punctuation that were not noted in review of the chart prior to signing ED Disposition - Plan for ED Patient: Disposition: Home or Assisted Living Diagnosis: COPD exacerbation Instructions: ED COPD Flare Referrals: Mery Raymond MD [Primary Care Provider] - 5-7 Days
== END 2019-10-22 17:42 | disposition home or self-care (01) ==
PROVIDERS: Emergency Provider Emergency Medicine; PCP Internal Medicine
DX: J44.1 Chronic obstructive pulmonary disease with (acute) exacerbation (principal); E66.9 Obesity, unspecified; E11.9 Type 2 diabetes mellitus without complications; Z79.4 Long term (current) use of insulin; Z79.51 Long term (current) use of inhaled steroids; Z86.711 Personal history of pulmonary embolism
CPT/HCPCS: 71045; 80048; 84484; 85025; 85379; 93005; 94640; 99285; A4216

== ENCOUNTER → 2019-10-31 | Outpatient (CLI) | payer MEDICARE, SELFPAY ==
[2016-05-11 14:29] VITALS: BMI 43.3
[2019-09-23 11:20] VITALS: BMI 45.4
[2019-10-22 14:19] VITALS: BMI 44.4
--- NOTE | 2019-10-31 13:05 | PFTCOMP_ITS ---
COMPLETE PULMONARY FUNCTION TEST INTERPRETATION Brief HPI: Patient is a 63 year old male, currently under the care of myself, who presents to [facility] for complete pulmonary function tests secondary to diagnosis of dyspnea. Respiratory therapist reports good effort and reproducible results. Interpretation: Forced expiration spirometry shows no large airways obstructive ventilatory defect with an FEV1 of 60% predicted. There is no significant bronchodilator response by strict ATS criteria. Spirograms are of good quality and plateau normally. The respiratory flow volume loop shows a normal pattern. Lung volumes by body plethysmography show a decreased total lung capacity at 5.2 L, 78% predicted. All other lung volumes are reduced symmetrically. Diffusion capacity by carbon monoxide is decreased at 72% predicted. The airway resistance is slightly elevated. Compared to previous pulmonary function tests from 10/14/2016, there is been a significant reduction in FVC and FEV1 by 17% and 20% respectively. Impression: Mild restrictive ventilatory defect with worsening compared to previous study.
== END | disposition home or self-care (01) ==
LOC: PSN 09:03
PROVIDERS: PCP Internal Medicine; Referring Provider Internal Medicine Critical Care Medicine; Visit Provider Internal Medicine Critical Care Medicine
DX: G47.33 Obstructive sleep apnea (adult) (pediatric) (principal); E66.01 Morbid (severe) obesity due to excess calories; Z68.41 Body mass index [BMI] 40.0-44.9, adult
CPT/HCPCS: 94060; 94726; 94729

== ENCOUNTER → 2019-11-12 | Outpatient (CLI) | payer MEDICARE, SELFPAY ==
[2016-05-11 14:29] VITALS: BMI 43.3
[2019-09-23 11:20] VITALS: BMI 45.4
[2019-10-22 14:19] VITALS: BMI 44.4
[2019-11-12 12:30] VITALS: PULSE 102; PULSE 103; PULSE 74; PULSE 80; PULSE 92; PULSE 97; PULSE 98; O2SAT 92; O2SAT 93; O2SAT 94
--- NOTE | 2019-11-12 14:52 | PCM.PSN.6M ---
PSN 6 Minute Walk Test - 6 Minute Walk Test 6 Minute Walk Test: 6 Minute Walk Test PSN:6-Minute Walk Test Start: 11/12/19 12:48 Freq: Status: Active Protocol: RESP.6MINW Document 11/12/19 12:30 [facility] (Rec: 11/12/19 12:52 [facility] [id number]) 6 Minute Walk Test Date Performed 11/12/19 Time Performed 12:30 Height 5 ft 10 in Weight: 139.706 kg Weight in Pounds 308.[address]: Dr Hawkins Assistive device used: None Pre-test Oxygen Delivery Method Room Air Pulse Ox (%) 93 Pulse Rate (60-100 beats/min) 74 Dyspnea Penelope Scale (0-10) 1 Exertion Penelope Scale (6-20) 6 1st minute Oxygen Delivery Method Room Air Pulse Ox (%) 92 Pulse Rate (60-100 beats/min) 92 2nd minute Oxygen Delivery Method Room Air Pulse Ox (%) 92 Pulse Rate (60-100 beats/min) 97 3rd minute Oxygen Delivery Method Room Air Pulse Ox (%) 92 Pulse Rate (60-100 beats/min) 98 4th minute Oxygen Delivery Method Room Air Pulse Ox (%) 93 Pulse Rate (60-100 beats/min) 103 H 5th minute Oxygen Delivery Method Room Air Pulse Ox (%) 92 Pulse Rate (60-100 beats/min) 103 H 6th minute Oxygen Delivery Method Room Air Pulse Ox (%) 93 Pulse Rate (60-100 beats/min) 102 H Post-test Oxygen Delivery Method Room Air Pulse Ox (%) 94 Pulse Rate (60-100 beats/min) 80 Dyspnea Penelope Scale (0-10) 2 Exertion Penelope Scale (6-20) 12 Full Laps Walked 13 Partial Lap, Number of Tiles Walked 31 Total Distance Walked (ft) 798 - Interpretation Interpretation: The patient was noted to be 93% on room air at rest. In total, the patient traveled 798 feet over the course of 6 minutes on room air with no assistive devices or breaks. The patient experienced no significant desaturation with an oxygen geo of 92%, but did have tachycardia as high as 103 bpm. These findings are consistent with a cardiopulmonary limitation exercise tolerance. - Recommendations Recommendations: No supplemental oxygen is indicated at this time. However, patient will need to be followed closely given level of baseline desaturation
== END | disposition home or self-care (01) ==
LOC: PSN 12:17
PROVIDERS: PCP Internal Medicine; Referring Provider Internal Medicine Critical Care Medicine; Visit Provider Internal Medicine Critical Care Medicine
DX: G47.33 Obstructive sleep apnea (adult) (pediatric) (principal); E66.01 Morbid (severe) obesity due to excess calories; Z68.41 Body mass index [BMI] 40.0-44.9, adult
CPT/HCPCS: 94618

== ENCOUNTER → 2019-11-18 11:21 | Outpatient (CLI) | payer MEDICARE, SELFPAY ==
[2016-05-11 14:29] VITALS: BMI 43.3
[2019-10-22 14:19] VITALS: BMI 44.4
[2019-11-19 07:39] LABS: SARS-COV-2 TOTAL ABS Nonreactive (Nonreactive)
== END ==
PROVIDERS: PCP Internal Medicine; Referring Provider Nurse Practitioner Acute Care; Visit Provider Nurse Practitioner Acute Care
DX: R05 Cough (principal)
CPT/HCPCS: 36415; 86769

== ENCOUNTER → 2020-04-22 09:05 | Outpatient (CLI) | payer MEDICARE, SELFPAY ==
[2016-05-11 14:29] VITALS: BMI 43.3
[2020-04-22 08:46] VITALS: BMI 45.3
[2020-04-22 12:50] LABS: Microalbumin,Random Urine 12.4 mg/L (NO RANGE EST.); Microalbumin:Creatinine Ratio 70.9 mg/g CRE (<30 mg/g CRE)
[2020-04-22 12:55] LABS: AST(SGOT) 39 U/L (15-37); Alanine Aminotransfer ALT/SGPT 78 U/L (16-61); Albumin, Serum 3.9 g/dL (3.2-5.0); Alkaline Phosphatase 98 U/L (45-117); Anion Gap 8 (5-15); BUN 26 mg/dL (7-18); BUN/Creat Ratio 23.9 RATIO (10-20); Calcium,Total 10.7 mg/dL (8.5-10.1); Chloride 105 mmol/L (98-107); Creatinine, Serum 1.09 mg/dL (0.70-1.30); EST Glomerular Filtration Rate 73 mL/min (>60); Est Glom Filt Rate - Afr Amer 88 mL/min (>60); Globulin 3.8 g/dL (2.2-4.2); Glucose 99 mg/dL (74-106); Potassium 3.9 mmol/L (3.5-5.1); Protein, Total 7.7 g/dL (6.4-8.2); Sodium Level 139 mmol/L (136-145)
== END ==
PROVIDERS: PCP Internal Medicine; Visit Provider Internal Medicine
DX: E11.9 Type 2 diabetes mellitus without complications (principal); I10 Essential (primary) hypertension
CPT/HCPCS: 36415; 80053; 82043; 82570

== ENCOUNTER → 2020-05-08 12:05 | Outpatient (CLI) | payer MEDICARE, SELFPAY ==
[2016-05-11 14:29] VITALS: BMI 43.3
[2020-04-22 08:46] VITALS: BMI 45.3
[2020-05-06 10:03] VITALS: BMI 45.9
--- NOTE | 2020-05-08 12:13 | MRI_ITS ---
STUDY: MRI BRAIN WITH AND WITHOUT CONTRAST (ATTENTION INTERNAL AUDITORY CANALS - I.A.C.''s) REASON FOR EXAM: Male, 64 years old. left tinnitus x 2 months TECHNIQUE: Standardized multiplanar fat and water weighted pulse sequences were obtained. IV 29cc dotarem was administered for the contrast portion of the examination. COMPARISON: None. FINDINGS: Normal bilateral temporal bones. Normal bilateral internal auditory canals. There is no demonstrated intracanalicular or cisternal vestibular schwannoma (acoustic neuroma). There is no enhancement of the bilateral VIIth or VIIIth cranial nerves. Normal bilateral cochlea, vestibules and semicircular canals. There is moderate cerebral atrophy with widening of the extra-axial spaces and ventricular dilatation. Normal white matter tracts of the supratentorial brain. There is no evidence for recent intracranial ischemia or other cause of cytotoxic edema on diffusion weighted imaging (DWI). Normal bilateral basal ganglia. Normal thalami. Normal flow voids within the major intracranial circulation suggesting patency by spin echo criteria. Normal venous enhancement. There is no enhancing intra-axial or extra-axial abnormality. There is no extra-axial fluid accumulation. Normal sella turcica, pituitary gland, infundibular stalk, optic chiasm and hypothalamus. Normal tectal plate and pineal gland. Normal midbrain, viri and medulla. Normal cerebellum. Normal basal cisterns. No demonstrated orbital abnormality, within the constraints of a routine brain study. Normal visualized paranasal sinuses. Normal calvarium and skull base. Normal visualized soft tissue structures. Normal visualized upper cervical spine. MRI/Brain W/WO Contrast IMPRESSION: Involutional changes of the brain, as described above. No MR evidence of vestibular schwannoma (acoustic neuroma) per Electronically Signed: Miquel Ramirez MD at 15:49 EST Tel , Service support ,
== END ==
PROVIDERS: PCP Internal Medicine; Referring Provider Otolaryngology; Visit Provider Otolaryngology
DX: H93.12 Tinnitus, left ear (principal)
CPT/HCPCS: 70553; A9575

== ENCOUNTER 2020-09-03 01:01 | Emergency (ER) | payer MEDICARE, SELFPAY ==
[2016-05-11 14:29] VITALS: BMI 43.3
[2020-07-21 11:27] VITALS: BMI 45.3
[2020-09-03 01:02] VITALS: BP 151/76; PULSE 71; RESP 16; TEMP 36.1; O2SAT 94; BMI 43.6
--- NOTE | 2020-09-03 01:24 | RAD_ITS ---
STUDY: X-RAY - THORACIC SPINE REASON FOR EXAM: Male, 64 years old. back pain TECHNIQUE: 4 view(s) of the thoracic spine were obtained. COMPARISON: None. FINDINGS: Normal kyphosis of the thoracic spine. There is no substantial scoliosis. There is multilevel endplate spondylosis of the thoracic vertebrae. There is multilevel disc space narrowing of the thoracic spine. The soft tissue structures are unremarkable. RAD/Thoracic Spine 3 Views IMPRESSION: Mild degenerative changes without acute findings Electronically Signed: Ric Lowe DO at 2:25 EDT Tel , Service support ,
--- NOTE | 2020-09-03 01:24 | EKG12_ITS ---
Test Reason : DYSRHYTHMIA Blood Pressure : / mmHG Vent. Rate : 068 BPM Atrial Rate : 068 BPM P-R Int : 202 ms QRS Dur : 096 ms QT Int : 426 ms P-R-T Axes : 063 007 098 degrees QTc Int : 452 ms Normal sinus rhythm Septal infarct , age undetermined Abnormal ECG Confirmed by LIZZIE PIZANO, JEET ([id number]), editor publications NAZ NORIEGA ([id number]) on 09/03/2020 11:33:48 AM Referred By: BENNIE Confirmed By:JEET SAMUEL MD
--- NOTE | 2020-09-03 01:24 | RAD_ITS ---
STUDY: X-RAY CHEST REASON FOR EXAM: Male, 64 years old. back pain TECHNIQUE: PA and lateral views of the chest. COMPARISON: None. FINDINGS: The lungs are clear and expanded. There is no demonstrated pleural abnormality. Normal size heart. Normal mediastinum and sue. Normal visualized pulmonary arteries. Normal visualized aortic arch and descending thoracic aorta. Normal visualized thoracic spine. Normal visualized ribs, clavicles, and shoulders. There is no demonstrated abnormality of the visualized soft tissue structures of the upper abdomen. RAD/Chest PA and Lateral IMPRESSION: Normal x-ray examination of the chest. Electronically Signed: Ric Lowe DO at 2:25 EDT Tel , Service support ,
--- NOTE | 2020-09-03 01:25 | EDS_ITS ---
HPI History of Present Illness Chief Complaint: Back Narrative Narrative: Patient stated approximately an hour and a half ago he woke up with mid thoracic back pain. It is central located. Worse with movements bending and twisting. Mild significant pain at rest. When he gets up to move or bend or twist he has severe sharp pain in this area. No radiation. He is never had this area before. Denies any chest pain or shortness of breath. He tried 5 nitroglycerin thinking that it could be angina which did nothing for him. He called EMS who brought him in for further evaluation. He does have history of coronary artery disease. He has multiple medical problems. No injury that he could think of to his back. It woke him up out of sleep. [facility] Medical History (Updated 09/03/20 @ 03:[address] Narendra Adhikari MD) Abnormal chest xray Acquired left ventricular hypertrophy Atherosclerosis of coronary artery of [place] heart without angina pectoris Chest discomfort Chronic hypoxemic respiratory failure Diabetes Dyspnea on exertion Epistaxis Essential (primary) hypertension History of DVT (deep vein thrombosis) History of pulmonary embolism Hypertriglyceridemia Hypoxia Morbid obesity with BMI of 40.0-44.9, adult Near syncope FAVIAN (obstructive sleep apnea) Osteoarthritis Overweight Pure hypercholesterolemia Type 2 diabetes mellitus Home Medications naproxen sodium 220 mg capsule 440 mg PO BID PRN PRN 02/08/18 [History Last Taken 10/22/19] albuterol sulfate 90 mcg/actuation aerosol inhaler 2 puff INHALATION Q4H PRN PRN #18 g 04/08/19 [Rx Last Taken 10/22/19] clopidogrel 75 mg tablet 75 mg PO DAILY #90 tab 10/03/19 [Rx Last Taken 10/22/19] insulin regular hum U-500 conc 40 unit SQ LUNCH 10/22/19 [History Last Taken 10/21/19] insulin regular hum U-500 conc 170 unit SQ DINNER 10/22/19 [History Last Taken 10/21/19] metolazone 2.5 mg PO SUTH 10/22/19 [History Last Taken Unknown] pen needle, diabetic 32 gauge x #100 ea 10/25/19 [Rx Last Taken Unknown] atorvastatin 40 mg tablet 40 mg PO QHS #90 tab 11/06/19 [Rx Last Taken Unknown] metformin 1,000 mg tablet 1,000 mg PO BIDCM #180 tab 11/18/19 [Rx Last Taken Unknown] aspirin 81 mg chewable tablet 81 mg PO DAILY@0800 #90 tab 11/29/19 [Rx Last Taken Unknown] amlodipine 10 mg tablet 10 mg PO DAILY #90 tab 12/18/19 [Rx Last Taken Unknown] glimepiride 4 mg tablet 4 mg PO BID #180 tab 12/26/19 [Rx Last Taken Unknown] losartan 25 mg tablet 25 mg PO DAILY #90 tab 01/07/20 [Rx Last Taken Unknown] trazodone 50 mg tablet 50 mg PO QHS PRN 01/13/20 [History Last Taken Unknown] blood sugar diagnostic #100 ea 01/21/20 [Rx Last Taken Unknown] Handicap Placard #1 ea 04/08/20 [Rx Last Taken Unknown] paroxetine HCl 40 mg tablet 40 mg PO DAILY #90 tab 05/20/20 [Rx Last Taken Unknown] ranolazine 500 mg tablet,extended release,12 hr 500 mg PO BID #180 tab 06/03/20 [Rx Last Taken Unknown] empagliflozin 25 mg tablet 25 mg PO DAILY #30 tab 06/11/20 [Rx Last Taken Unknown] nitroglycerin 0.4 mg sublingual tablet 0.4 mg SUBLINGUAL Q5M PRN #25 tab 07/09/20 [Rx Last Taken Unknown] insulin regular hum U-500 conc See Rx Instructions SC QHS #78 ml 07/23/20 [Rx Last Taken Unknown] furosemide 20 mg tablet 20 mg PO BID #60 tab 08/06/20 [Rx Last Taken Unknown] metoprolol succinate 200 mg tablet,extended release 24 hr 100 mg PO BID #90 tab 08/06/20 [Rx Last Taken Unknown] potassium chloride 20 mEq tablet,extended release(part/cryst) 40 meq PO TID 90 Days #540 tab 08/12/20 [Rx Last Taken Unknown] furosemide 40 mg tablet 40 mg PO BID #180 tab 09/02/20 [Rx Last Taken Unknown] oxycodone-acetaminophen [Percocet] 1 tab PO Q8H PRN 3 Days #10 tab 09/03/20 [Rx Last Taken Unknown] Allergy/AdvReac Type Severity Reaction Status Date / Time No Known Allergies Allergy Verified 09/03/20 01:06 Family History Mother Colon cancer Sister CAD (coronary artery disease) CABG x 5 Diabetes Myocardial infarction, Onset Age: 67 Father Crohns disease Surgical History History of appendectomy 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) History of coronary artery stent placement (05/11/16) History of eye surgery History of hip replacement History of intestinal surgery History of knee surgery History of tonsillectomy and adenoidectomy Social History Smoking Status: Never smoker second hand exposure: Yes alcohol intake: former year quit: 2003 substance use type: former substance user Date of last use: 04/10/2004 and marijuana caffeine: Yes Type: carbonated beverages Number of servings: 2 and coffee Number of servings: 2 what type of physical activity do you participate in: none ROS ROS ED ROS Narrative ROS General: Denies fever, chills, sweats Eyes: Denies visual changes, blurred vision, double vision ENT: Denies ear pain, rhinorrhea, sore throat Cardiovascular: Denies chest pain, palpitations, heart racing Respiratory: Denies dyspnea, cough, sputum, dyspnea on exertion, orthopnea,PND GI: Denies abdominal pain, nausea, vomiting, diarrhea, constipation, melena : Denies dysuria, hematuria, frequency Musculoskeletal: See HPI Skin: Denies rash, abscess, abrasions Neuro: Denies headache, weakness, paresthesia Psych: Denies depression, anxiety Endo: Denies polyuria, polydipsia, polyphagia Heme: Denies easy bruising, easy bleeding, lymphadenopathy Allergy: Denies hives, swelling EXAM Physical Exam Narrative Exam Narrative: Vital signs reviewed General: Well-nourished well-developed Head: Normocephalic atraumatic Eyes: Pupils equal round and reactive to light extraocular movements intact ENT: TMs clear no hemotympanum no trauma Neck: Nontender full range of motion Cardiovascular: Regular rate rhythm no murmurs normal S1-S2 Respiratory: No distress clear to auscultation bilaterally chest nontender Abdomen: Soft nontender nondistended normal bowel sounds no masses Back: Tenderness to palpation mid back between the shoulder blades centrally. No swelling or deformity. Decreased range of motion secondary to pain. All avila bring on significant pain when he moves. Extremities: Nontender active range of motion ?4 extremities no trauma Skin: Normal color no trauma Neuro alert oriented cranial nerves II through XII intact normal strength sensation reflexes Const Vital Signs: 09/03/20 01:02 Temperature 97 F L Temperature Source Temporal Pulse Rate 71 Respiratory Rate 16 Blood Pressure 151/76 H Blood Pressure Mean 101 Pulse Ox 94 MDM MDM MDM Narrative Medical decision making narrative: Patient given injection of morphine for his pain. EKG chest x-ray and thoracic x-ray obtained. Interpretation of the imaging studies show his chest x-ray showed nothing acute. Mediastinum normal. Thoracic x-ray shows chronic arthritic changes without acute fracture. Patient felt better after treatment. Did ambulate with some discomfort. It was very much movement related. Given a second dose of morphine and a short course of Percocet for pain control for home. I do not think he has aortic dissection or other acute emergent cause of his symptoms. I do not think he needs an emergent CT angio of his chest. EKG did show sinus rhythm with a first-degree heart block at a rate of 68. Q waves V1 and V2 unchanged from prior EKGs. Nothing acute found. I do not feel he needs lab work. Radiography Diagnostic Testing: Radiology Impression Chest X-Ray 09/03/20 01:24 IMPRESSION: Normal x-ray examination of the chest. Electronically Signed: Ric Lowe DO at 2:25 EDT Tel , Service support , Thoracic Spine X-Ray 09/03/20 01:24 IMPRESSION: Mild degenerative changes without acute findings Electronically Signed: Ric Lowe DO at 2:25 EDT Tel , Service support , Discharge Plan Triage Chief Complaint: Back ED Provider: Narendra Adhikari Dx/Rx/DC Orders Clinical Impression: Acute midline thoracic back pain Instructions: ED Back Sprain/Strain Prescriptions: New oxycodone-acetaminophen [Percocet] 5-325 mg tablet 1 tab PO Q8H PRN (Reason: pain) 3 Days Qty: 10 RF: 0 No Action naproxen sodium [Aleve] 220 mg capsule 440 mg PO BID PRN PRN (Reason: Pain) RF: 0 trazodone 50 mg tablet 50 mg PO QHS PRN (Reason: Sleep) RF: 0 losartan 25 mg tablet 25 mg PO DAILY Qty: 90 RF: 3 (DME) pen needle, diabetic [BD Ultra-Fine Lorie Pen Needle] 32 gauge x 5/32 needle See Rx Instructions .ROUTE .MEDSUPPLY Qty: 100 RF: 5 (DME) OneTouch Verio test strips Strip See Rx Instructions .ROUTE .MEDSUPPLY Qty: 100 RF: 12 (DME) Handicap Placard See Rx Instructions .ROUTE .MEDSUPPLY Qty: 1 RF: 0 insulin regular hum U-500 conc 500 UNIT/ML insulin pen 40 unit SQ LUNCH RF: 0 insulin regular hum U-500 conc 500 UNIT/ML insulin pen 170 unit SQ DINNER RF: 0 metolazone 2.5 MG tablet 2.5 mg PO SUTH RF: 0 albuterol sulfate 90 mcg/actuation HFA aerosol inhaler 2 puff INHALATION Q4H PRN PRN (Reason: Sob &/Or Wheezing) Qty: 18 RF: 6 clopidogrel 75 mg tablet 75 mg PO DAILY Qty: 90 RF: 3 atorvastatin 40 mg tablet 40 mg PO QHS Qty: 90 RF: 3 metformin 1,000 mg tablet 1,000 mg PO BIDCM Qty: 180 RF: 3 aspirin 81 mg tablet,chewable 81 mg PO DAILY@0800 Qty: 90 RF: 3 amlodipine 10 mg tablet 10 mg PO DAILY Qty: 90 RF: 4 glimepiride 4 mg tablet 4 mg PO BID Qty: 180 RF: 3 paroxetine HCl 40 mg tablet 40 mg PO DAILY Qty: 90 RF: 1 ranolazine 500 mg tablet extended release 12 hr 500 mg PO BID Qty: 180 RF: 3 Jardiance 25 mg tablet 25 mg PO DAILY Qty: 30 RF: 6 nitroglycerin 0.4 mg tablet, sublingual 0.4 mg SUBLINGUAL Q5M PRN (Reason: Chest Pain) Qty: 25 RF: 4 Humulin R U-500 (Conc) Kwikpen 500 unit/mL (3 mL) insulin pen See Rx Instructions SC QHS Qty: 78 RF: 5 furosemide [Lasix] 20 mg tablet 20 mg PO BID Qty: 60 RF: 11 metoprolol succinate 200 mg tablet extended release 24 hr 100 mg PO BID Qty: 90 RF: 3 potassium chloride 20 mEq tablet,ER particles/crystals 40 meq PO TID 90 Days Qty: 540 RF: 1 furosemide 40 mg tablet 40 mg PO BID Qty: 180 RF: 3 Primary Care Provider: Mery Raymond Referrals: Mery Raymond MD [Primary Care Provider] - Disposition Disposition: Home, self care
[2020-09-03] MEDS: Morphine 4 MG/ML Syringe IM ×2 (01:36→03:16)
[2020-09-03 03:21] VITALS: BP 126/102; PULSE 71; RESP 18; O2SAT 93
[2020-09-03 03:44] VITALS: BP 122/65
== END 2020-09-03 03:50 | disposition home or self-care (01) ==
PROVIDERS: Emergency Provider Emergency Medicine; PCP Internal Medicine
DX: M54.6 Pain in thoracic spine (principal); I25.10 Atherosclerotic heart disease of native coronary artery without angina pectoris; E11.9 Type 2 diabetes mellitus without complications; I10 Essential (primary) hypertension; E78.00 Pure hypercholesterolemia, unspecified; E66.01 Morbid (severe) obesity due to excess calories; M19.90 Unspecified osteoarthritis, unspecified site; Z79.4 Long term (current) use of insulin; Z86.718 Personal history of other venous thrombosis and embolism; Z86.711 Personal history of pulmonary embolism; Z79.899 Other long term (current) drug therapy
CPT/HCPCS: 71046; 72072; 93005; 96372; 99285

== ENCOUNTER → 2020-10-20 12:53 | Outpatient (CLI) | payer MEDICARE, SELFPAY ==
[2016-05-11 14:29] VITALS: BMI 43.3
[2020-10-16 11:14] VITALS: BMI 41.3
[2020-10-20 13:36] LABS: AST(SGOT) 23 U/L (15-37); Alanine Aminotransfer ALT/SGPT 42 U/L (16-61); Alkaline Phosphatase 103 U/L (45-117); Bilirubin, Direct 0.22 mg/dL (0.00-0.30); Cholesterol 234 mg/dL (200); Globulin 3.8 g/dL (2.2-4.2); High Density Lipoprotein 30 mg/dL; Protein, Total 7.8 g/dL (6.4-8.2); Triglycerides 892 mg/dL
== END ==
PROVIDERS: PCP Internal Medicine; Referring Provider Internal Medicine Cardiovascular Disease; Visit Provider Internal Medicine Cardiovascular Disease
DX: E78.00 Pure hypercholesterolemia, unspecified (principal)
CPT/HCPCS: 36415; 80061; 80076

== ENCOUNTER → 2021-03-25 10:10 | Outpatient (CLI) | payer MEDICARE, SELFPAY ==
[2016-05-11 14:29] VITALS: BMI 43.3
[2020-10-23 08:46] VITALS: BMI 41.0
--- NOTE | 2021-03-26 07:37 | PFT ---
INTRODUCTION: The patient is a 65-year-old male that presents for pulmonary function studies secondary to a diagnosis of dyspnea. Respiratory therapy reported good patient effort. Bronchodilators were used during testing. INTERPRETATION: Forced expiration spirometry demonstrates no evidence of a large airways obstructive ventilatory defect. There was no significant response to aerosolized bronchodilators. Spirograms are of good quality and plateau normally. Body plethysmography was performed and reveals a decreased TLC to 5.0 L, 76% of predicted, indicative of a mild restrictive ventilatory impairment. The remainder of the lung volumes are symmetrically reduced. Diffusing capacity by single breath CO is within normal limits. IMPRESSION: Isolated mild restrictive ventilatory impairment, likely secondary to body habitus.
== END ==
PROVIDERS: PCP Internal Medicine; Referring Provider Nurse Practitioner Acute Care; Visit Provider Nurse Practitioner Acute Care
DX: R06.09 Other forms of dyspnea (principal)
CPT/HCPCS: 94060; 94726; 94729

== ENCOUNTER → 2021-03-26 12:13 | Outpatient (CLI) | payer MEDICARE, SELFPAY ==
[2016-05-11 14:29] VITALS: BMI 43.3
[2020-10-23 08:46] VITALS: BMI 41.0
[2021-03-26 12:32] VITALS: PULSE 70; PULSE 74; PULSE 82; PULSE 86; PULSE 89; PULSE 90; PULSE 92; PULSE 93; O2SAT 96; O2SAT 97; O2SAT 98
--- NOTE | 2021-03-27 07:12 | WT_ITS ---
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 Assistive device used: None Pre-test Oxygen Delivery Method Room Air Pulse Ox (%) 96 Pulse Rate (60-100 beats/min) 70 Dyspnea Penelope Scale (0-10) 1 1st minute Oxygen Delivery Method Room Air Pulse Ox (%) 97 Pulse Rate (60-100 beats/min) 82 Dyspnea Penelope Scale (0-10) 2 Number of Rests Taken 0 2nd minute Oxygen Delivery Method Room Air Pulse Ox (%) 96 Pulse Rate (60-100 beats/min) 86 Dyspnea Penelope Scale (0-10) 2 Number of Rests Taken 0 3rd minute Oxygen Delivery Method Room Air Pulse Ox (%) 96 Pulse Rate (60-100 beats/min) 92 Dyspnea Penelope Scale (0-10) 3 Number of Rests Taken 0 Reported Symptoms Increased Work of Breathing 4th minute Oxygen Delivery Method Room Air Pulse Ox (%) 96 Pulse Rate (60-100 beats/min) 93 Dyspnea Penelope Scale (0-10) 4 Number of Rests Taken 1 Reported Symptoms Increased Work of Breathing 5th minute Oxygen Delivery Method Room Air Pulse Ox (%) 98 Pulse Rate (60-100 beats/min) 89 Dyspnea Penelope Scale (0-10) 3 Number of Rests Taken 0 Reported Symptoms Increased Work of Breathing 6th minute Oxygen Delivery Method Room Air Pulse Ox (%) 98 Pulse Rate (60-100 beats/min) 90 Dyspnea Penelope Scale (0-10) 3 Number of Rests Taken 0 Reported Symptoms Increased Work of Breathing Post-test Oxygen Delivery Method Room Air Pulse Ox (%) 97 Pulse Rate (60-100 beats/min) 74 Dyspnea Penelope Scale (0-10) 1 Full Laps Walked 11 Partial Lap, Number of Tiles Walked 37 Total Distance Walked (ft) 686 Interpretation Interpretation: The patient ambulated 686 feet over the course of 6 minutes beginning on room air without assistive devices. Pretesting oxygen saturation was noted to be 96% on room air. With ambulation, the geo oxygen saturation was 96%. There was no significant exertional oxygen desaturation. Recommendations Recommendations: There is no indication for the use of supplemental oxygen at this time.
== END ==
PROVIDERS: PCP Internal Medicine; Visit Provider Nurse Practitioner Acute Care
DX: R06.09 Other forms of dyspnea (principal)
CPT/HCPCS: 94618

== ENCOUNTER 2021-04-28 14:09 | Outpatient (CLI) | payer MEDICARE, SELFPAY ==
[2016-05-11 14:29] VITALS: BMI 43.3
[2021-04-28 15:32] LABS: Absolute Lymphocyte Count 1.05 X10^3/uL (0.83-4.51); Basophil# 0.04 X10^3/uL; Basophil% 0.5 % (0-1); Eosinophil# 0.12 X10^3/uL; Eosinophils% 1.6 % (0-5); Hematocrit 53.3 % (40-54); Hemoglobin 16.8 g/dL (13.0-16.5); Lymphocyte # 1.05 X10^3/ul (0.83-4.51); Lymphocyte % 14.3 % (19-41); Mean Corp Hgb Conc 31.5 g/dL (32-36); Mean Corpuscular Hgb 29.2 pg (27.0-32.0); Mean Corpuscular Volume 92.7 fL (80-94); Mean Platelet Vol. 9.7 fl (6.2-12.0); Monocyte# 1.08 X10^3/uL; Monocyte% 14.7 % (0-10); NRBC Flagged by Analyzer 0 % (0-5); Neutrophil % 68.2 % (47-70); Platelet Count 308 K/mm3 (150-450); RBC Distribution Width CV 15.3 % (11.6-14.6); RBC Distribution Width SD 51.8 fl (35.1-43.9); Red Blood Count 5.75 M/mm3 (4.6-6.2); White Blood Count 7.3 K/mm3 (4.4-11.0)
[2021-04-28 16:19] LABS: Vitamin D,25 Hydroxy 8.7 ng/mL
[2021-04-28 16:24] LABS: ALB/GLOB Ratio 1.1 RATIO (0.9-2.4); AST(SGOT) 31 U/L (15-37); Alanine Aminotransfer ALT/SGPT 70 U/L (16-61); Albumin, Serum 4.2 g/dL (3.2-5.0); Alkaline Phosphatase 70 U/L (45-117); Anion Gap 8 (5-15); BUN 53 mg/dL (7-18); BUN/Creat Ratio 31.4 RATIO (10-20); Calcium,Total 10.5 mg/dL (8.5-10.1); Chloride 102 mmol/L (98-107); Cholesterol 165 mg/dL (200); Creatinine, Serum 1.69 mg/dL (0.70-1.30); EST Glomerular Filtration Rate 44 mL/min (>60); Est Glom Filt Rate - Afr Amer 53 mL/min (>60); Globulin 3.8 g/dL (2.2-4.2); Glucose 115 mg/dL (74-106); High Density Lipoprotein 28 mg/dL; Potassium 3.8 mmol/L (3.5-5.1); Sodium Level 137 mmol/L (136-145); Thyroid Stim Hormone (TSH) 2.79 uIU/mL (0.358-3.74); Triglycerides 399 mg/dL; Very Low Density Lipoprotein 80 mg/dL (5-40)
== END 2021-04-28 23:59 | disposition short-term general hospital (02) ==
LOC: LAB 14:12
PROVIDERS: PCP Internal Medicine; Referring Provider Physician Assistant Medical; Visit Provider Physician Assistant Medical
DX: R06.09 Other forms of dyspnea (principal); E11.42 Type 2 diabetes mellitus with diabetic polyneuropathy; R53.83 Other fatigue; E78.2 Mixed hyperlipidemia; E83.52 Hypercalcemia; I10 Essential (primary) hypertension; Z95.5 Presence of coronary angioplasty implant and graft
CPT/HCPCS: 36415; 80053; 80061; 82306; 83735; 84443; 85025

== ENCOUNTER 2021-05-11 11:55 | Outpatient (CLI) | payer MEDICARE, SELFPAY ==
[2016-05-11 14:29] VITALS: BMI 43.3
[2021-05-11 15:48] LABS: AST(SGOT) 31 U/L (15-37); Alanine Aminotransfer ALT/SGPT 58 U/L (16-61); Alkaline Phosphatase 68 U/L (45-117); Anion Gap 7 (5-15); BUN 40 mg/dL (7-18); BUN/Creat Ratio 33.1 RATIO (10-20); Calcium,Total 11.8 mg/dL (8.5-10.1); Chloride 103 mmol/L (98-107); Creatinine, Serum 1.21 mg/dL (0.70-1.30); EST Glomerular Filtration Rate 64 mL/min (>60); Est Glom Filt Rate - Afr Amer 78 mL/min (>60); Glucose 94 mg/dL (74-106); Potassium 3.7 mmol/L (3.5-5.1); Sodium Level 139 mmol/L (136-145)
[2021-05-12 08:21] LABS: PTHIN 207.1 pg/mL (18.4-80.1)
== END 2021-05-11 23:59 | disposition short-term general hospital (02) ==
LOC: BIMLAB 11:56
PROVIDERS: PCP Internal Medicine; Referring Provider Internal Medicine Endocrinology, Diabetes & Metabolism; Visit Provider Internal Medicine Endocrinology, Diabetes & Metabolism
DX: N28.9 Disorder of kidney and ureter, unspecified (principal); E83.52 Hypercalcemia
CPT/HCPCS: 36415; 80053; 83970

== ENCOUNTER 2021-05-18 18:36 | Observation (INO) | payer MEDICARE, SELFPAY ==
[2021-05-11 12:06] VITALS: BMI 43.3
[2021-05-18 18:38] VITALS: BP 151/72; PULSE 80; RESP 16; TEMP 38.2; O2SAT 93; BMI 43.0
[2021-05-18 19:41] VITALS: BP 139/67; PULSE 81; RESP 22; O2SAT 93
--- NOTE | 2021-05-18 19:41 | EKG12_ITS ---
Test Reason : WEAKNESS Blood Pressure : / mmHG Vent. Rate : 080 BPM Atrial Rate : 080 BPM P-R Int : 240 ms QRS Dur : 102 ms QT Int : 382 ms P-R-T Axes : 086 023 051 degrees QTc Int : 440 ms Sinus rhythm with 1st degree A-V block Septal infarct , age undetermined Abnormal ECG Confirmed by BAILEE PIZANO, NII ([id number]), editor trade journal NAZ NORIEGA ([id number]) on 05/19/2021 9:46:06 AM Referred By: BB Confirmed By:NII MOROCHO MD
--- NOTE | 2021-05-18 19:41 | CT_ITS ---
We are attempting to reach an attending provider to discuss findings. An addendum with communication details will be sent when the communication is complete. EXAM: CT HEAD WITHOUT INTRAVENOUS CONTRAST : 1955 CLINICAL INDICATION: Neuro deficit, acute, stroke suspected - vertigo TECHNIQUE: Multiple axial images were obtained of the head without intravenous contrast. This CT exam was performed using one or more of the following dose reduction techniques: automated exposure control, adjustment of the mA and/or kV according to patient size, and/or use of iterative reconstruction technique. This report was created using [employer] report Citrus technology. COMPARISON: MRI brain May 08, 2020 FINDINGS: BRAIN AND EXTRA-AXIAL SPACES: Prominence of the cortical sulci and ventricles related to volume loss change. No intra- or extra-axial hemorrhage. No evidence of acute infarct. No intracranial mass or mass effect. There is preservation of the [place]ston/white matter interface. Posterior fossa structures are unremarkable. Basal cisterns are patent. BONES/JOINTS: Unremarkable. No discrete lytic or blastic abnormalities. SINUSES: See below. MASTOID AIR CELLS: Unremarkable. Clear. ORBITS: Visualized globes, extraocular muscles, optic nerves and retrobulbar fat appear unremarkable. DENTAL: Significant loss of the crown of the right maxillary teeth associated with prominent periapical resorption of some of which extends into the right maxillary sinus. OTHER FINDINGS: Bilateral maxillary antrostomies are noted. CT/STROKE Brain/Head without Cont IMPRESSION: 1. No acute intracranial abnormality. 2. Senescent changes. 3. Prominent dental disease with secondary involvement of the right maxillary sinus. 4. Aspect score 10 Individualized dose optimization techniques were used for this CT. at 2006 Reported and signed by: Timbo Shultz MD Electronically Signed: Timbo Shultz MD at 20:05 EST ,
--- NOTE | 2021-05-18 19:42 | CT_ITS ---
We are attempting to reach an attending provider to discuss findings. An addendum with communication details will be sent when the communication is complete. EXAM: CT ANGIOGRAPHY HEAD AND NECK WITH INTRAVENOUS CONTRAST : 1955 CLINICAL INDICATION: Neuro deficit, acute, stroke suspected-vertigo TECHNIQUE: [place]/head and neck CT angiography protocol performed with intravenous contrast. This CT exam was performed using one or more of the following dose reduction techniques: automated exposure control, adjustment of the mA and/or kV according to patient size, and/or use of iterative reconstruction technique. This report was created using [employer] report [employer] technology. MIP reconstructed images were created and reviewed. CONTRAST: IV 100mL [id number] COMPARISON: CT brain May 18, 2021 FINDINGS: HEAD: RIGHT ANTERIOR CEREBRAL ARTERY: Anterior communicating artery noted. No significant stenosis at the visualized segments. No aneurysm. RIGHT MIDDLE CEREBRAL ARTERY: Unremarkable. No significant stenosis at the visualized segments. No aneurysm. RIGHT POSTERIOR CEREBRAL ARTERY: Posterior communicating arteries present bilaterally. No occlusion or significant stenosis. No aneurysm. LEFT ANTERIOR CEREBRAL ARTERY: See above. LEFT MIDDLE CEREBRAL ARTERY: Unremarkable. No significant stenosis at the visualized segments. No aneurysm. LEFT POSTERIOR CEREBRAL ARTERY: No occlusion or significant stenosis. No aneurysm BASILAR ARTERY: Unremarkable. No significant stenosis. No aneurysm. GREAT VESSELS OF AORTIC ARCH: Unremarkable. Normal anatomy, patent. OTHER VASCULATURE: No vascular malformation. NECK: RIGHT COMMON CAROTID ARTERY: Unremarkable. No significant stenosis. No dissection or occlusion. RIGHT INTERNAL CAROTID ARTERY: Mild calcific plaquing noted at the right carotid bifurcation. RIGHT EXTERNAL CAROTID ARTERY: Unremarkable. No occlusion. RIGHT VERTEBRAL ARTERY: Unremarkable. No significant stenosis. No dissection or occlusion. LEFT COMMON CAROTID ARTERY: Unremarkable. No significant stenosis. No dissection or occlusion. LEFT INTERNAL CAROTID ARTERY: Unremarkable. No significant stenosis. No dissection or occlusion. LEFT EXTERNAL CAROTID ARTERY: Unremarkable. No occlusion. LEFT VERTEBRAL ARTERY: Unremarkable. No significant stenosis. No dissection or occlusion. LUNG APICES: Unremarkable as visualized. SOFT TISSUES: Unremarkable. CAROTID STENOSIS REFERENCE USING NASCET CRITERIA: % ICA stenosis = (1 - narrowest ICA diameter/diameter of distal cervical ICA) x 100. Moderate - 50-69% stenosis. Severe - 70-94% stenosis. Near occlusion - 95-99% stenosis. Occluded - 100% stenosis. CT/STROKE CTA Head AND Neck W/Con IMPRESSION: No evidence of arterial stenosis, occlusion, dissection or aneurysm. Individualized dose optimization techniques were used for this CT. at 2018 Reported and signed by: Timbo Shultz MD Electronically Signed: Timbo Shultz MD at 20:17 EST ,
[2021-05-18 19:43] VITALS: BP 139/67; PULSE 80; RESP 18; O2SAT 92
--- NOTE | 2021-05-18 19:43 | EDS_ITS ---
HPI History of Present Illness Chief Complaint: Weakness Informant: patient Onset/Context/Timing Onset: Today (1300, about 6.5 hours prior to evaluation) Context: Sudden Onset Timing: Continuous Quality and Location: Positive for Difficulty with Ambulation Onset: Abrupt Current Severity: Moderate Maximum Severity: Moderate Worsened by: Walking Relieved by: Nothing. Associated Symptoms Associated Symptoms: Positive for Nausea; Negative for Headache, Vomiting and Chest Pain Narrative Narrative: Patient states he was sitting at his computer today when he suddenly started having dizziness that he describes as a sensation of movement that has been making him feel nauseated. He is having trouble walking because of this, trouble that he did not have prior to the onset of the dizziness. No recent illness or injury. He states turning his head, different positions does not make any of this worse. He denies any changes in his vision. He has chronic tinnitus, he followed up with ENT for it, has been there for about a year and and it is no different today. No earache. No headache. No focal new neurologic symptoms, he has chronic tingling below the knees that is unchanged. No history of stroke or TIA. He is on Plavix because of history of a cardiac stent. [facility] Medical History Abnormal chest xray Acquired left ventricular hypertrophy Arthritis Atherosclerosis of coronary artery of [place] heart without angina pectoris Chest discomfort Chronic hypoxemic respiratory failure Colon cancer screening Diabetes Dyspnea on exertion Epistaxis Essential (primary) hypertension Fatigue Flu vaccine need Health care maintenance History of DVT (deep vein thrombosis) History of pulmonary embolism Hypertriglyceridemia Hypoxia Morbid obesity with BMI of 40.0-44.9, adult Near syncope Obesity FAVIAN (obstructive sleep apnea) Osteoarthritis Pure hypercholesterolemia Home Medications naproxen sodium 220 mg capsule 440 mg PO BID PRN PRN 02/08/18 [History Last Taken 10/22/19] albuterol sulfate 90 mcg/actuation aerosol inhaler 2 puff INHALATION Q4H PRN PRN #18 g 04/08/19 [Rx Last Taken 10/22/19] metolazone 2.5 mg PO SUTH 10/22/19 [History Last Taken Unknown] trazodone 50 mg tablet 50 mg PO QHS PRN 01/13/20 [History Last Taken Unknown] Handicap Placard #1 ea 12/30/20 [Rx Last Taken Unknown] empagliflozin 25 mg tablet 25 mg PO DAILY #30 tab 06/11/20 [Rx Last Taken Unknown] furosemide 20 mg tablet 20 mg PO BID #60 tab 08/06/20 [Rx Last Taken Unknown] metoprolol succinate 200 mg tablet,extended release 24 hr 100 mg PO BID #90 tab 08/06/20 [Rx Last Taken Unknown] clopidogrel 75 mg tablet 75 mg PO DAILY #90 tab 10/06/20 [Rx Last Taken Unknown] fenofibrate micronized 200 mg capsule 200 mg PO DAILY #30 cap 11/13/20 [Rx Last Taken Unknown] blood sugar diagnostic #100 ea 11/23/20 [Rx Last Taken Unknown] aspirin 81 mg chewable tablet 81 mg PO DAILY@0800 #90 tab 11/25/20 [Rx Last Taken Unknown] amlodipine 10 mg tablet 10 mg PO DAILY #90 tab 12/18/20 [Rx Last Taken Unknown] losartan 25 mg tablet 25 mg PO DAILY #90 tab 01/12/21 [Rx Last Taken Unknown] metformin 1,000 mg tablet 1,000 mg PO BIDCM #180 tab 01/12/21 [Rx Last Taken Unknown] ranolazine 500 mg tablet,extended release,12 hr 500 mg PO BID #180 tab 02/04/21 [Rx Last Taken Unknown] Trulicity 1.5 mg/0.5 mL subcutaneous pen injector 1.5 mg SUBCUT QWEEK #2 ml NS 02/16/21 [Rx Last Taken Unknown] atorvastatin 40 mg tablet 40 mg PO QHS #90 tab 02/16/21 [Rx Last Taken Unknown] flash glucose scanning reader #1 ea 02/16/21 [Rx Last Taken Unknown] flash glucose sensor #2 ea 02/16/21 [Rx Last Taken Unknown] pen needle, diabetic 32 gauge x 32 #360 ea 02/16/21 [Rx Last Taken Unknown] potassium chloride 20 mEq tablet,extended release(part/cryst) 40 meq PO TID 90 Days #540 tab 03/01/21 [Rx Last Taken Unknown] furosemide 40 mg tablet 40 mg PO BID tab 05/04/21 [History Last Taken Unknown] insulin regular hum U-500 conc See Rx Instructions SC QHS ml 05/04/21 [History Last Taken Unknown] nitroglycerin 0.4 mg sublingual tablet 0.4 mg SUBLINGUAL Q5M PRN #25 tab 05/05/21 [Rx Last Taken Unknown] cholecalciferol (vitamin D3) 1,250 mcg (50,000 unit) capsule 1,250 mcg PO QWEEK #14 cap 05/11/21 [Rx Last Taken Unknown] icosapent ethyl 1 gram capsule 2 g PO BID #180 cap 05/11/21 [Rx Last Taken Unknown] paroxetine HCl 40 mg tablet 40 mg PO DAILY #90 tab 05/11/21 [Rx Last Taken Unknown] Allergy/AdvReac Type Severity Reaction Status Date / Time No Known Allergies Allergy Verified 05/18/21 18:38 Family History Mother Colon cancer Sister CAD (coronary artery disease) CABG x 5 Diabetes Myocardial infarction, Onset Age: 67 Father Crohns disease Surgical History History of appendectomy 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) History of coronary artery stent placement (05/11/16) History of eye surgery History of hip replacement History of intestinal surgery History of knee surgery History of tonsillectomy and adenoidectomy Social History Smoking Status: Never smoker second hand exposure: Yes alcohol intake: former year quit: 2003 substance use type: former substance user Date of last use: 04/10/2004 and marijuana caffeine: Yes Type: carbonated beverages Number of servings: 2 and coffee Number of servings: 2 what type of physical activity do you participate in: none ROS ROS ED Constitutional Constitutional ED: Denies chills or fever(s) Eyes Eyes: Denies change in vision or diplopia ENT ENT ED: Reports tinnitus; Denies rhinorrhea or sore throat Cardiovascular Cardiovascular: Denies chest pain or palpitations Respiratory/Chest Respiratory/Chest: Denies cough or dyspnea Gastrointestinal Gastrointestinal: Denies abdominal pain, diarrhea, nausea or vomiting Genitourinary Genitourinary ED: Denies dysuria or hematuria Musculoskeletal Musculoskeletal: Reports difficulty walking and joint pain; Denies back pain or neck pain Integumentary Denies abscess or rash Neurologic Neurologic: Reports as per HPI, disequilibrium and vertigo; Denies headache(s), paresthesias or weakness Psychiatric Psychiatric: Denies anxiety or suicidal thoughts EXAM Physical Exam Const Vital Signs: 05/18/21 18:38 05/18/21 19:41 05/18/21 19:43 Temperature 100.8 F H Temperature Source Temporal Pulse Rate 80 81 80 Respiratory Rate 16 22 H 18 Blood Pressure 151/72 H 139/67 H 139/67 H Blood Pressure Mean 98 91 91 Pulse Ox 93 93 92 Oxygen Delivery Method Room Air Room Air Room Air 05/18/21 19:47 Temperature Temperature Source Pulse Rate Respiratory Rate Blood Pressure Blood Pressure Mean Pulse Ox Oxygen Delivery Method Room Air Positive well nourished, well developed and obese General Appearance ED: well developed and NAD Nutritional Appearance: obese HEENT Reports EAC's normal, TM's normal bilaterally and moist mucous membranes normocephalic and atraumatic Eyes PERRL and EOMs intact bilaterally Neck full ROM and supple Resp normal respiratory effort and clear to auscultation bilaterally Cardio regular rate, regular rhythm and no murmurs GI non-tender and non-distended Auscultation: normoactive bowel sounds Palpation: soft Back/Spine no CVA tenderness General Back: other FROM Extremity normal to inspection General Extremety ED: Negative for edema, pulses abnormal or tenderness General Extremity: Negative for edema or pulses abnormal Neuro oriented x3, CN's II-XII intact bilaterally and deep tendon reflexes 2+ bilaterally Neuro Narrative: Decreased sensation below both knees. Normal [id number] and [id number] bilaterally, however exam significantly limited due to bilateral rotator cuff problems and bilateral hip problems and obesity. There is persistent horizontal nystagmus, difficult to tell which direction the fast component is, no rotatory or vertical nystagmus. He has a normal jolt test. Sensorium / Orientation: awake and alert Motor Exam: strength 5/5 throughout Skin no rashes or lesions noted and no wounds STROKE Vital Signs/Narrative: Vital Signs Temp Pulse Resp BP Pulse Ox 05/18/21 19:43 80 18 139/67 H 92 05/18/21 19:41 81 22 H 139/67 H 93 05/18/21 18:38 100.8 F H 80 16 151/72 H 93 NIHSS Initial: 1a Level of Consciousness: 0 1b LOC Questions (Score 2 if aphasic/stupor): 0 1c LOC Commands (Only score 1st attempt): 0 2 Best Gaze (If aphasic, use reflexive mvmts.): 0 3 Visual: 0 4 Facial Palsy: 0 5 Motor Arm Right (UN = amputation/fusion): 0 5 Motor Arm Left: 0 6 Motor Leg Right: 0 6 Motor Leg Left: 0 7 Limb ataxia (Only + if out of proportion): 0 8 Sensory (Aphasia/stupor=0 or 1, coma=2): 0 9 Best Language: 0 10 Dysarthria (mute, coma=2, intubated=UN): 0 11 Extinction and Inattention (only scored if +): 0 Total Score: 0 MDM MDM MDM Narrative Medical decision making narrative: Patient was not an IV TPA candidate due to timing, so CT angiography of the head and neck was performed simultaneous with plain CT, it showed some disease in the right carotid bifurcation but no LVO. Therefore, we will admit the patient for further evaluation/work-up. I am concerned about central vertigo here especially with a negative/normal jolt test. Lab Data Attestation: I reviewed the patient's lab results. Labs: Laboratory Results - last 24 hr 05/18/21 05/18/21 05/18/21 19:43 19:50 19:50 WBC 16.2 H RBC 5.51 Hgb 16.9 H Hct 50.4 MCV 91.5 MCH 30.7 MCHC 33.5 RDW Std Deviation 49.7 H RDW Coeff of Thao 14.8 H Plt Count 290 MPV 9.4 Immature Gran % (Auto) 0.700 Neut % (Auto) 87.4 H Lymph % (Auto) 1.6 L [place] % (Auto) 9.7 Eos % (Auto) 0.4 Baso % (Auto) 0.2 Absolute Neuts (auto) 14.2 H Absolute Lymphs (auto) 0.26 L Nucleated RBC % 0 Differential Comment SEE COMMENTS Diff Path Review May foll Platelet Estimate ADEQUATE RBC Morphology N CHROM Anisocytosis RARE Macrocytosis RARE PT 13.1 INR 1.1 APTT 27.4 Sodium Potassium Chloride Carbon Dioxide Anion Gap BUN Creatinine Estim Creat Clear Calc Est GFR (MDRD) Af Amer Est GFR (MDRD) Non-Af BUN/Creatinine Ratio Glucose Calcium Troponin I High Sens POC Glucose 140 H 05/18/21 19:50 WBC RBC Hgb Hct MCV MCH MCHC RDW Std Deviation RDW Coeff of Thao Plt Count MPV Immature Gran % (Auto) Neut % (Auto) Lymph % (Auto) [place] % (Auto) Eos % (Auto) Baso % (Auto) Absolute Neuts (auto) Absolute Lymphs (auto) Nucleated RBC % Differential Comment Diff Path Review Platelet Estimate RBC Morphology Anisocytosis Macrocytosis PT INR APTT Sodium 137 Potassium 4.1 Chloride 105 Carbon Dioxide 27.0 Anion Gap 5 BUN 29 H Creatinine 1.12 Estim Creat Clear Calc 68.80 Est GFR (MDRD) Af Amer 85 Est GFR (MDRD) Non-Af 70 BUN/Creatinine Ratio 25.9 H Glucose 132 H Calcium 10.7 H Troponin I High Sens 31 POC Glucose Radiography Diagnostic Testing: Clinical Impression(s) from Imaging Studies Brain CT 05/18/21 19:41 IMPRESSION: 1. No acute intracranial abnormality. 2. Senescent changes. 3. Prominent dental disease with secondary involvement of the right maxillary sinus. 4. Aspect score 10 Individualized dose optimization techniques were used for this CT. at 2005 Reported and signed by: Timbo Shultz MD Electronically Signed: Timbo Shultz MD at 20:05 EST , ADDENDUM: 05/18/212013 IMPRESSION: 1. No acute intracranial abnormality. 2. Senescent changes. 3. Prominent dental disease with secondary involvement of the right maxillary sinus. 4. Aspect score 10 Individualized dose optimization techniques were used for this CT. at 2005 Reported and signed by: Timbo Shultz MD N.B. : The above Results were Read Back by Timbo Shultz MD to Dr. Brady Zaidi MD, and understanding confirmed on 05/18/2021 20:07:48 (ET). Electronically Signed: Timbo Shultz MD at 20:05 EST , Head/Neck CTA 05/18/21 19:42 IMPRESSION: No evidence of arterial stenosis, occlusion, dissection or aneurysm. Individualized dose optimization techniques were used for this CT. at 2018 Reported and signed by: Timbo Shultz MD Electronically Signed: Timbo Shultz MD at 20:17 EST , ADDENDUM: 05/18/212028 IMPRESSION: No evidence of arterial stenosis, occlusion, dissection or aneurysm. Individualized dose optimization techniques were used for this CT. at 2018 Reported and signed by: Timbo Shultz MD N.B. : The above Results were Read Back by Timbo Shultz MD to Dr. Brady Zaidi MD, and understanding confirmed on 05/18/2021 20:22:07 (ET). Electronically Signed: Timbo Shultz MD at 20:17 EST , Chest X-Ray 05/18/21 20:02 IMPRESSION: No radiographic evidence of acute cardiopulmonary disease. at 2036 Reported and signed by: Timbo Shultz MD Electronically Signed: Timbo Shultz MD at 20:35 EST , EKG Initial EKG: Attestation: I personally reviewed and interpreted this EKG as follows: Interpretation: Sinus Rhythm, No Acute Injury Pattern, AV Block (1st deg) and - (ant Q waves) Prior EKG tracings: available for review Prior: Unchanged Stroke Documentation Questions Stroke Team Activated: Yes Was Patient considered for Endovascular Intervention?: No (Negative CTA) IV Alteplase (t-PA) Administered: No (Due to timing) Discharge Plan Dx/Rx/DC Orders Clinical Impression: Vertigo, central Disposition Disposition: Acute Care Hospital [facility]
[2021-05-18 19:51] LABS: Bedside Glucose 140 mg/dL (70-110)
--- NOTE | 2021-05-18 19:58 | ED.RN ---
states okay to not use robot and call [facility]
[2021-05-18 20:00] LABS: Absolute Lymphocyte Count 0.26 X10^3/uL (0.83-4.51); Absolute Neutrophil Count 14.2 X10^3/uL (2.0-7.7); Basophil# 0.04 X10^3/uL; Basophil% 0.2 % (0-1); Eosinophil# 0.06 X10^3/uL; Eosinophils% 0.4 % (0-5); Hematocrit 50.4 % (40-54); Hemoglobin 16.9 g/dL (13.0-16.5); Lymphocyte # 0.26 X10^3/ul (0.83-4.51); Lymphocyte % 1.6 % (19-41); Mean Corp Hgb Conc 33.5 g/dL (32-36); Mean Corpuscular Hgb 30.7 pg (27.0-32.0); Mean Corpuscular Volume 91.5 fL (80-94); Mean Platelet Vol. 9.4 fl (6.2-12.0); Monocyte# 1.58 X10^3/uL; Monocyte% 9.7 % (0-10); NRBC Flagged by Analyzer 0 % (0-5); Neutrophil # 14.16 X10^3/uL (2.7-7.7); Neutrophil % 87.4 % (47-70); POSITIVE DIFFERENTIAL YES; Platelet Count 290 K/mm3 (150-450); RBC Distribution Width CV 14.8 % (11.6-14.6); RBC Distribution Width SD 49.7 fl (35.1-43.9); Red Blood Count 5.51 M/mm3 (4.6-6.2); White Blood Count 16.2 K/mm3 (4.4-11.0)
--- NOTE | 2021-05-18 20:02 | RAD_ITS ---
History: Neuro deficit, acute, stroke suspected EXAMINATION/TECHNIQUE: XR Chest 1 View: Portable COMPARISON: September 03, 2020 FINDINGS: LINES/DEVICES: None. LUNGS: No consolidation, edema or effusion. No pneumothorax. MEDIASTINUM AND CARDIOVASCULAR STRUCTURES: Cardiac silhouette not enlarged. Central airways and mediastinal contour are unremarkable. Elevation of the right hemidiaphragm. BONES AND SOFT TISSUES: Unremarkable. RAD/Chest 1 View IMPRESSION: No radiographic evidence of acute cardiopulmonary disease. at 2036 Reported and signed by: Timbo Shultz MD Electronically Signed: Timbo Shultz MD at 20:35 EST ,
[2021-05-18 20:09] LABS: International Normalized Ratio 1.1; Prothrombin Time (Protime)PT. 13.1 SECONDS (11.7-14.9)
[2021-05-18 20:10] LABS: Partial Thromboplast Time 27.4 Seconds (24.1-36.2)
[2021-05-18] MEDS: Ondansetron 4 MG/2 ML Vial IV (20:10)
[2021-05-18 20:17] LABS: Anion Gap 5 (5-15); BUN 29 mg/dL (7-18); BUN/Creat Ratio 25.9 RATIO (10-20); Calcium,Total 10.7 mg/dL (8.5-10.1); Chloride 105 mmol/L (98-107); Creatinine, Serum 1.12 mg/dL (0.70-1.30); EST Glomerular Filtration Rate 70 mL/min (>60); Est Glom Filt Rate - Afr Amer 85 mL/min (>60); Glucose 132 mg/dL (74-106); Potassium 4.1 mmol/L (3.5-5.1); Sodium Level 137 mmol/L (136-145); Troponin-I HS 31 pg/mL (3.0-78.0)
[2021-05-18 20:19] LABS: Differential Indicated SCAN CRITERIA MET
[2021-05-18 20:21] LABS: Anisocytosis RARE; Differential Comment SEE COMMENTS; Macrocytosis RARE; Platelet Estimate ADEQUATE (ADEQ); Red Cell Morphology N CHROM NORMAL (NORM C&C)
--- NOTE | 2021-05-18 21:06 | HP.PCM_ITS ---
Documented by User: MAVERICK Antunez 05/18/21 21:28 HPI - General General Date of Admission: 05/18/21 Date of Service: 05/18/21 Chief Complaint: Dizziness HPI Narrative ELIANE KAY, is a 65 M who presents with complaints of dizziness which started earlier today. Patient states that is mostly when going from sitting to standing that he experiences the dizziness. Patient denies any syncopal episodes and states that nothing makes it better or worse. Patient also reports associated nausea. Patient reports a medical history that includes diabetes, hypertension, hyperlipidemia, FAVIAN, coronary artery disease. [facility] Medical History Abnormal chest xray Acquired left ventricular hypertrophy Arthritis Atherosclerosis of coronary artery of [place] heart without angina pectoris Chest discomfort Chronic hypoxemic respiratory failure Colon cancer screening Diabetes Dyspnea on exertion Epistaxis Essential (primary) hypertension Fatigue Flu vaccine need Health care maintenance History of DVT (deep vein thrombosis) History of pulmonary embolism Hypertriglyceridemia Hypoxia Morbid obesity with BMI of 40.0-44.9, adult Near syncope Obesity FAVIAN (obstructive sleep apnea) Osteoarthritis Pure hypercholesterolemia Home Medications naproxen sodium 220 mg capsule 440 mg PO BID PRN PRN 02/08/18 [History Last Taken 10/22/19] albuterol sulfate 90 mcg/actuation aerosol inhaler 2 puff INHALATION Q4H PRN PRN #18 g 04/08/19 [Rx Last Taken 10/22/19] metolazone 2.5 mg PO SUTH 10/22/19 [History Last Taken Unknown] trazodone 50 mg tablet 50 mg PO QHS PRN 01/13/20 [History Last Taken Unknown] Handicap Placard #1 ea 04/08/20 [Rx Last Taken Unknown] empagliflozin 25 mg tablet 25 mg PO DAILY #30 tab 06/11/20 [Rx Last Taken Unknown] furosemide 20 mg tablet 20 mg PO BID #60 tab 08/06/20 [Rx Last Taken Unknown] metoprolol succinate 200 mg tablet,extended release 24 hr 100 mg PO BID #90 tab 08/06/20 [Rx Last Taken Unknown] clopidogrel 75 mg tablet 75 mg PO DAILY #90 tab 10/06/20 [Rx Last Taken Unknown] fenofibrate micronized 200 mg capsule 200 mg PO DAILY #30 cap 11/13/20 [Rx Last Taken Unknown] blood sugar diagnostic #100 ea 11/23/20 [Rx Last Taken Unknown] aspirin 81 mg chewable tablet 81 mg PO DAILY@0800 #90 tab 11/25/20 [Rx Last Taken Unknown] amlodipine 10 mg tablet 10 mg PO DAILY #90 tab 12/18/20 [Rx Last Taken Unknown] losartan 25 mg tablet 25 mg PO DAILY #90 tab 01/12/21 [Rx Last Taken Unknown] metformin 1,000 mg tablet 1,000 mg PO BIDCM #180 tab 01/12/21 [Rx Last Taken Unknown] ranolazine 500 mg tablet,extended release,12 hr 500 mg PO BID #180 tab 02/04/21 [Rx Last Taken Unknown] Trulicity 1.5 mg/0.5 mL subcutaneous pen injector 1.5 mg SUBCUT QWEEK #2 ml NS 02/16/21 [Rx Last Taken Unknown] atorvastatin 40 mg tablet 40 mg PO QHS #90 tab 02/16/21 [Rx Last Taken Unknown] flash glucose scanning reader #1 ea 02/16/21 [Rx Last Taken Unknown] flash glucose sensor #2 ea 02/16/21 [Rx Last Taken Unknown] pen needle, diabetic 32 gauge x 5/32 #360 ea 02/16/21 [Rx Last Taken Unknown] potassium chloride 20 mEq tablet,extended release(part/cryst) 40 meq PO TID 90 Days #540 tab 03/01/21 [Rx Last Taken Unknown] furosemide 40 mg tablet 40 mg PO BID tab 05/04/21 [History Last Taken Unknown] insulin regular hum U-500 conc See Rx Instructions SC QHS ml 05/04/21 [History Last Taken Unknown] nitroglycerin 0.4 mg sublingual tablet 0.4 mg SUBLINGUAL Q5M PRN #25 tab 05/05/21 [Rx Last Taken Unknown] cholecalciferol (vitamin D3) 1,250 mcg (50,000 unit) capsule 1,250 mcg PO QWEEK #14 cap 05/11/21 [Rx Last Taken Unknown] icosapent ethyl 1 gram capsule 2 g PO BID #180 cap 05/11/21 [Rx Last Taken Unknown] paroxetine HCl 40 mg tablet 40 mg PO DAILY #90 tab 05/11/21 [Rx Last Taken Unknown] Allergy/AdvReac Type Severity Reaction Status Date / Time No Known Allergies Allergy Verified 05/18/21 18:38 Family History Mother Colon cancer Sister CAD (coronary artery disease) CABG x 5 Diabetes Myocardial infarction, Onset Age: 67 Father Crohns disease Surgical History History of appendectomy 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) History of coronary artery stent placement (05/11/16) History of eye surgery History of hip replacement History of intestinal surgery History of knee surgery History of tonsillectomy and adenoidectomy Social History (Updated 05/18/21 @ 22:[address] Purvi Jensen MD) household members: none other: Hx working in [employer] and [employer]. Smoking Status: Never smoker second hand exposure: Yes alcohol intake: former year quit: 2003 details: Sober since 2003. substance use type: former substance user Date of last use: 04/10/2004 and marijuana caffeine: Yes Type: carbonated beverages Number of servings: 2 and coffee Number of servings: 2 what type of physical activity do you participate in: none ROS Constitutional Constitutional: Denies anorexia, chills, fatigue, fever(s) or night sweats Cardiovascular Cardiovascular: Denies chest pain, edema, palpitations or syncope Respiratory/Chest Respiratory/Chest: Reports shortness of breath at rest and shortness of breath with exertion; Denies cough or wheezing Gastrointestinal Gastrointestinal: Reports nausea; Denies abdominal pain, constipation, diarrhea or vomiting Genitourinary Genitourinary: Denies dysuria Musculoskeletal Musculoskeletal: Denies back pain, extremity pain, joint pain or joint stiffness Integumentary Integumentary: Denies dry skin Neurologic Neurologic: Reports dizziness and tingling; Denies abnormal gait, abnormal speech, confusion or focal weakness Psychiatric Psychiatric: Denies anxiety or depression Endocrine Endocrinology: Denies change in body appearance Hematologic/Lymphatic Hematologic/Lymphatic: Denies anemia Vital Signs Vital Signs Vital Signs: 05/18/21 18:38 05/18/21 19:41 05/18/21 19:43 Temperature 100.8 F H Temperature Source Temporal Pulse Rate 80 81 80 Respiratory Rate 16 22 H 18 Blood Pressure 151/72 H 139/67 H 139/67 H Blood Pressure Mean 98 91 91 Pulse Ox 93 93 92 Oxygen Delivery Method Room Air Room Air Room Air 05/18/21 19:47 Temperature Temperature Source Pulse Rate Respiratory Rate Blood Pressure Blood Pressure Mean Pulse Ox Oxygen Delivery Method Room Air Weight Weight: 300 lb Body Mass Index (BMI) 43.0 Physical Exam Const alert, oriented x3 and no apparent distress General Appearance: cooperative HEENT normocephalic and head/scalp atraumatic Eyes conjunctivae normal and no scleral icterus Neck supple General: trachea midline Lymph Lymphatic: no lymphadenopathy noted Resp normal respiratory effort, normal air movement and clear to auscultation bilaterally Cardio regular rate, regular rhythm, S1 normal heart sound and S2 normal heart sound GI normal to inspection, nondistended, normoactive bowel sounds, soft to palpation and non-tender Extremity normal capillary refill and no clubbing, cyanosis or edema Neuro oriented x3, moves all extremities and no focal motor deficits Sensorium / Orientation: awake and alert Speech: speech normal Psych thought process normal, cooperative and affect normal Appearance: appropriate Results Lab / Micro Data Result Diagrams: 05/18/21 19:50 05/18/21 19:50 Labs: Laboratory Results - last 24 hr 05/18/21 19:43: POC Glucose 140 H 05/18/21 19:50: WBC 16.2 H, RBC 5.51, Hgb 16.9 H, Hct 50.4, MCV 91.5, MCH 30.7, MCHC 33.5, RDW Std Deviation 49.7 H, RDW Coeff of Thao 14.8 H, Plt Count 290, MPV 9.4, Immature Gran % (Auto) 0.700, Neut % (Auto) 87.4 H, Lymph % (Auto) 1.6 L, [place] % (Auto) 9.7, Eos % (Auto) 0.4, Baso % (Auto) 0.2, Absolute Neuts (auto) 14.2 H, Absolute Lymphs (auto) 0.26 L, Nucleated RBC % 0, Differential Comment SEE COMMENTS, Diff Path Review May foll, Platelet Estimate ADEQUATE, RBC Morphology N CHROM, Anisocytosis RARE, Macrocytosis RARE 05/18/21 19:50: PT 13.1, INR 1.1, APTT 27.4 05/18/21 19:50: Sodium 137, Potassium 4.1, Chloride 105, Carbon Dioxide 27.0, Anion Gap 5, BUN 29 H, Creatinine 1.12, Estim Creat Clear Calc 68.80, Est GFR (MDRD) Af Amer 85, Est GFR (MDRD) Non-Af 70, BUN/Creatinine Ratio 25.9 H, Glucose 132 H, Calcium 10.7 H, Troponin I High Sens [address] 05/18/21 19:41 IMPRESSION: 1. No acute intracranial abnormality. 2. Senescent changes. 3. Prominent dental disease with secondary involvement of the right maxillary sinus. 4. Aspect score 10 Individualized dose optimization techniques were used for this CT. at 2006 Reported and signed by: Timbo Shultz MD Electronically Signed: Timbo Shultz MD at 20:05 EST , ADDENDUM: 05/18/212013 IMPRESSION: 1. No acute intracranial abnormality. 2. Senescent changes. 3. Prominent dental disease with secondary involvement of the right maxillary sinus. 4. Aspect score 10 Individualized dose optimization techniques were used for this CT. at 2005 Reported and signed by: Timbo Shultz MD N.B. : The above Results were Read Back by Timbo Shultz MD to Dr. Brady Zaidi MD, and understanding confirmed on 05/18/2021 20:07:48 (ET). Electronically Signed: Timbo Shultz MD at 20:05 EST , Head/Neck CTA 05/18/21 19:42 IMPRESSION: No evidence of arterial stenosis, occlusion, dissection or aneurysm. Individualized dose optimization techniques were used for this CT. at 2018 Reported and signed by: Timbo Shultz MD Electronically Signed: Timbo Shultz MD at 20:17 EST Reading Location ID and State: [id number] [place] [address] , Service support , ADDENDUM: 05/18/212028 IMPRESSION: No evidence of arterial stenosis, occlusion, dissection or aneurysm. Individualized dose optimization techniques were used for this CT. at 2018 Reported and signed by: Timbo Shultz MD N.B. : The above Results were Read Back by Timbo Shultz MD to Dr. Brady Zaidi MD, and understanding confirmed on 05/18/2021 20:22:07 (ET). Electronically Signed: Timbo Shultz MD at 20:17 EST Reading Location ID and State: [id number] [place] [address] , Service support , Chest X-Ray 05/18/21 20:02 IMPRESSION: No radiographic evidence of acute cardiopulmonary disease. at 2036 Reported and signed by: Timbo Shultz MD Electronically Signed: Timbo Shultz MD at 20:35 EST Reading Location ID and State: [address] [place] [address] , Service support , Assessment & Plan Assessment/Plan (1) Vertigo, central: PLAN: 1. Vertigo -Admit to PCU -PT OT eval and treat -CT demonstrates no acute intracranial abnormality, CTA head and neck d emonstrates no evidence of arterial stenosis, occlusion, dissection, aneurysm. -MRI ordered for a.m. to complete stroke rule out -As needed meclizine ordered for symptom management 2. Diabetes mellitus type 2 -Continue patient's home medication regimen of U5 100 -We will hold patient's p.o. Metformin secondary to administration of CAT scan dye -ACHS blood sugars with sliding scale insulin ordered 3. Hypertension -We will hold patient's p.o. home medication regimen until MRI is completed to r ule out stroke -Vital signs per protocol, currently stable 4. Obstructive sleep apnea -CPAP ordered 5. Secondary pulmonary hypertension -Patient currently on 2 L nasal cannula for comfort -Recently patient was taken off his 3 L nasal cannula home O2 secondary to improved fluid status per Dr. Hawkins's note from office visit 04/21/2021. 6. Hyperlipidemia -Continue atorvastatin and fenofibrate 7. CAD -Continue Plavix -Patient has history of stent placement to the mid LAD 05/11/2016 DVT prophylaxis-subcu Lovenox This patient was seen by Ariana Cardenas NP-C under the supervision of Dr. Sarah Beth castillo. 29 minutes spent in clinical coordination of patient's plan of care. Documented by User: Dr. Purvi Jensen MD 05/18/21 22:02 HPI - General General Date of Admission: 05/18/21 [facility] Medical History Abnormal chest xray Acquired left ventricular hypertrophy Arthritis Atherosclerosis of coronary artery of [place] heart without angina pectoris Chest discomfort Chronic hypoxemic respiratory failure Colon cancer screening Diabetes Dyspnea on exertion Epistaxis Essential (primary) hypertension Fatigue Flu vaccine need Health care maintenance History of DVT (deep vein thrombosis) History of pulmonary embolism Hypertriglyceridemia Hypoxia Morbid obesity with BMI of 40.0-44.9, adult Near syncope Obesity FAVIAN (obstructive sleep apnea) Osteoarthritis Pure hypercholesterolemia Home Medications naproxen sodium 220 mg capsule 440 mg PO BID PRN PRN 02/08/18 [History Last Taken 10/22/19] albuterol sulfate 90 mcg/actuation aerosol inhaler 2 puff INHALATION Q4H PRN PRN #18 g 04/08/19 [Rx Last Taken 10/22/19] metolazone 2.5 mg PO SUTH 10/22/19 [History Last Taken Unknown] trazodone 50 mg tablet 50 mg PO QHS PRN 01/13/20 [History Last Taken Unknown] Handicap Placard #1 ea 12/30/20 [Rx Last Taken Unknown] empagliflozin 25 mg tablet 25 mg PO DAILY #30 tab 06/11/20 [Rx Last Taken Unknown] furosemide 20 mg tablet 20 mg PO BID #60 tab 08/06/20 [Rx Last Taken Unknown] metoprolol succinate 200 mg tablet,extended release 24 hr 100 mg PO BID #90 tab 08/06/20 [Rx Last Taken Unknown] clopidogrel 75 mg tablet 75 mg PO DAILY #90 tab 10/06/20 [Rx Last Taken Unknown] fenofibrate micronized 200 mg capsule 200 mg PO DAILY #30 cap 11/13/20 [Rx Last Taken Unknown] blood sugar diagnostic #100 ea 11/23/20 [Rx Last Taken Unknown] aspirin 81 mg chewable tablet 81 mg PO DAILY@0800 #90 tab 11/25/20 [Rx Last Taken Unknown] amlodipine 10 mg tablet 10 mg PO DAILY #90 tab 12/18/20 [Rx Last Taken Unknown] losartan 25 mg tablet 25 mg PO DAILY #90 tab 01/12/21 [Rx Last Taken Unknown] metformin 1,000 mg tablet 1,000 mg PO BIDCM #180 tab 01/12/21 [Rx Last Taken Unknown] ranolazine 500 mg tablet,extended release,12 hr 500 mg PO BID #180 tab 02/04/21 [Rx Last Taken Unknown] Trulicity 1.5 mg/0.5 mL subcutaneous pen injector 1.5 mg SUBCUT QWEEK #2 ml NS 02/16/21 [Rx Last Taken Unknown] atorvastatin 40 mg tablet 40 mg PO QHS #90 tab 02/16/21 [Rx Last Taken Unknown] flash glucose scanning reader #1 ea 02/16/21 [Rx Last Taken Unknown] flash glucose sensor #2 ea 02/16/21 [Rx Last Taken Unknown] pen needle, diabetic 32 gauge x 32 #360 ea 02/16/21 [Rx Last Taken Unknown] potassium chloride 20 mEq tablet,extended release(part/cryst) 40 meq PO TID 90 Days #540 tab 03/01/21 [Rx Last Taken Unknown] furosemide 40 mg tablet 40 mg PO BID tab 05/04/21 [History Last Taken Unknown] insulin regular hum U-500 conc See Rx Instructions SC QHS ml 05/04/21 [History Last Taken Unknown] nitroglycerin 0.4 mg sublingual tablet 0.4 mg SUBLINGUAL Q5M PRN #25 tab 05/05/21 [Rx Last Taken Unknown] cholecalciferol (vitamin D3) 1,250 mcg (50,000 unit) capsule 1,250 mcg PO QWEEK #14 cap 05/11/21 [Rx Last Taken Unknown] icosapent ethyl 1 gram capsule 2 g PO BID #180 cap 05/11/21 [Rx Last Taken Unknown] paroxetine HCl 40 mg tablet 40 mg PO DAILY #90 tab 05/11/21 [Rx Last Taken Unknown] Allergy/AdvReac Type Severity Reaction Status Date / Time No Known Allergies Allergy Verified 05/18/21 18:38 Family History Mother Colon cancer Sister CAD (coronary artery disease) CABG x 5 Diabetes Myocardial infarction, Onset Age: 67 Father Crohns disease Surgical History History of appendectomy 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) History of coronary artery stent placement (05/11/16) History of eye surgery History of hip replacement History of intestinal surgery History of knee surgery History of tonsillectomy and adenoidectomy Social History (Updated 05/18/21 @ 22:[address] Purvi Jensen MD) household members: none other: Hx working in [employer] and [employer]. Smoking Status: Never smoker second hand exposure: Yes alcohol intake: former year quit: 2003 details: Sober since 2003. substance use type: former substance user Date of last use: 04/10/2004 and marijuana caffeine: Yes Type: carbonated beverages Number of servings: 2 and coffee Number of servings: 2 what type of physical activity do you participate in: none Results Lab / Micro Data Result Diagrams: 05/18/21 19:50 05/18/21 19:50
[2021-05-18 21:34] VITALS: BP 116/44; PULSE 81; RESP 18; TEMP 37.3; O2SAT 94
[2021-05-18 21:36] LABS: D-Dimer Quantitative (DVT/PE) 0.44 FEU/ug/m (0.27-0.49)
[2021-05-18 22:09] LABS: Procalcitonin 0.26 ng/mL (0.00-0.09)
[2021-05-18 22:25] VITALS: O2SAT 93
--- NOTE | 2021-05-18 22:29 | ECHOCS_ITS ---
Reason For Study: CVA Procedure This was a 2D Doppler, Color Flow transthoracic echocardiogram. Technically difficult study due to patients body habitus. Contrast injection and bubble study performed. Exam performed portable in patient room. Left Ventricle Normal LV size. Left ventricular systolic function is normal. The estimated ejection fraction is 60 %. No regional wall motion abnormalities noted. Right Ventricle Normal RV size. Normal systolic function. Atria Normal left atrium. Normal right atrium. Bubble contrast study negative for right to left interatrial shunt. Mitral Valve Mitral valve not well visualized. Tricuspid Valve Normal tricuspid valve. Aortic Valve The aortic valve is not well visualized. Pulmonic Valve The pulmonic valve is not well visualized. Great Vessels Normal aortic root. The pulmonary artery is normal size. Normal inferior vena cava. Pericardium/Pleural No pericardial effusion. Medication Diluted definity 3ml given slow IV push to enhance endocardial definition. Performed a rapid injection of agitated mix of 9 cc saline and 1cc air to assess for atrial septal defect. MMode/2D Measurements & Calculations LVIDd: 5.1 cm IVSd: 1.7 cm LA dimension: 5.1 cm LVIDs: 3.5 cm LVPWd: 1.9 cm RVDd: 5.6 cm FS: 31.6 % LAV(MOD-bp): 75.0 ml LA A4 area: 25.0 cm2 RA A4 area: 25.0 cm2 LAV(MOD-bp) Indexed: 30.2 ml/m2 LAV(MOD-sp2): 66.3 ml LAV(MOD-sp4): 75.8 ml Time Measurements MV dec time: 0.20 sec Doppler Measurements & Calculations MV E max manuel: 101.8 cm/sec Lat Peak E' Manuel: 14.1 cm/sec Med Peak E' Manuel: 6.5 cm/sec MV A max manuel: 77.2 cm/sec E/E' lat: 7.2 E/E' med: 15.8 MV E/A: 1.3 MV V2 max: 129.0 cm/sec MV P1/2t max manuel: 131.0 cm/sec Ao V2 max: 155.0 cm/sec MV max P.7 mmHg MV P1/2t: 77.4 msec Ao max P.6 mmHg MV V2 mean: 70.0 cm/sec MV dec slope: 495.5 cm/sec2 MV mean P.3 mmHg MV V2 VTI: 32.8 cm MVA(P1/2t): 2.8 cm2 LV V1 max: 123.0 cm/sec PA V2 max: 128.1 cm/sec LV V1 max P.1 mmHg ECHO/Echo Complete W/ Contrast Interpretation Summary Normal LV size. Left ventricular systolic function is normal. The estimated ejection fraction is 60 %. Bubble contrast study negative for right to left interatrial shunt. Contrast injection was performed. The study was technically limited. Ordering Physician: Purvi Jensen Referring Physician: Mery Raymond Performed By: Arthur Mazariegos RCS
[2021-05-18 22:30] VITALS: BP 121/68; PULSE 80; PULSE 87; RESP 22; TEMP 37; O2SAT 93; BMI 43.2
[2021-05-18] MEDS: traZODone 50 MG Tablet PO (22:58)
[2021-05-18] MEDS: Acetaminophen 325 MG Tablet 650 MG PO (22:58)
[2021-05-18] MEDS: 0.9% Normal Saline 1,000 ML 100 ML IV (23:03)
[2021-05-18] MEDS: Ceftriaxone 1 GM/50 ML BAG IV (23:45)
--- NOTE | 2021-05-18 23:48 | CPS ---
pt bringing in their own CPAP machine, wants to stay on just o2 for now until family member is able to bring in their's
--- NOTE | 2021-05-18 23:50 | CPS ---
pt bringing in their own CPAP machine, wants to stay on just o2 for now until family member is able to bring in their's
[2021-05-19] VITALS (13 sets, daily range): BP systolic 128–154; BP diastolic 60–77; PULSE 76–85; RESP 12–22; TEMP 37–37.7; O2SAT 94–98; BMI 43.2
[2021-05-19] MEDS: Insulin Lispro 100 UNIT/ML INSULN.PEN SC ×2 (00:05→08:58)
[2021-05-19 00:06] LABS: Bedside Glucose 158 mg/dL (70-110)
[2021-05-19] MEDS: Potassium Chloride Oral Tablet 20 MEQ 40 MEQ PO ×4 (00:06→17:16)
[2021-05-19] MEDS: Meclizine 12.5 MG Tablet PO (00:06)
[2021-05-19] MEDS: Ranolazine 500 MG Tablet PO ×3 (00:06→22:46)
[2021-05-19] MEDS: Atorvastatin Calcium 40 MG Tablet PO ×2 (00:06→22:42)
[2021-05-19] MEDS: Enoxaparin 40 MG/0.4 ML Syringe SC ×3 (00:07→22:43)
[2021-05-19] MEDS: Acetaminophen 325 MG Tablet 650 MG PO ×3 (03:46→23:11)
--- NOTE | 2021-05-19 05:55 | RAD_ITS ---
STUDY: X-RAY CHEST REASON FOR EXAM: Male, 65 years old. Dyspnea TECHNIQUE: Single AP portable view of the chest. COMPARISON: Comparison is made with prior examination dated 05/18/2021. FINDINGS: EKG electrodes are seen. Elevation of the right hemidiaphragm. Mild increased markings at the right lung base suggestive of either atelectasis and/or early infiltrate. There is no demonstrated pleural abnormality. There is borderline cardiomegaly. Normal mediastinum and sue. Normal visualized pulmonary arteries. Normal visualized aortic arch and descending thoracic aorta. There are diffuse degenerative changes of the visualized thoracic spine. There is degenerative osteoarthritis of the bilateral shoulders. There is no demonstrated abnormality of the visualized soft tissue structures of the upper abdomen. RAD/Chest 1 View (Portable) IMPRESSION: Elevation of the right hemidiaphragm with mild increased markings at the right lung base suggestive of atelectasis and/or early infiltrate. Electronically Signed: Rodrigo Suarez MD at 8:42 EST ,
[2021-05-19 06:06] LABS: Absolute Lymphocyte Count 0.39 X10^3/uL (0.83-4.51); Absolute Neutrophil Count 12.3 X10^3/uL (2.0-7.7); Basophil# 0.02 X10^3/uL; Basophil% 0.1 % (0-1); Eosinophil# 0.01 X10^3/uL; Eosinophils% 0.1 % (0-5); Hematocrit 45.4 % (40-54); Hemoglobin 14.6 g/dL (13.0-16.5); Lymphocyte # 0.39 X10^3/ul (0.83-4.51); Lymphocyte % 2.7 % (19-41); Mean Corp Hgb Conc 32.2 g/dL (32-36); Mean Corpuscular Hgb 30.5 pg (27.0-32.0); Mean Corpuscular Volume 94.8 fL (80-94); Mean Platelet Vol. 9.3 fl (6.2-12.0); Monocyte# 1.44 X10^3/uL; Monocyte% 10.1 % (0-10); NRBC Flagged by Analyzer 0 % (0-5); Neutrophil # 12.33 X10^3/uL (2.7-7.7); Neutrophil % 86.6 % (47-70); POSITIVE DIFFERENTIAL YES; Platelet Count 208 K/mm3 (150-450); RBC Distribution Width CV 15.5 % (11.6-14.6); RBC Distribution Width SD 53.8 fl (35.1-43.9); Red Blood Count 4.79 M/mm3 (4.6-6.2); White Blood Count 14.3 K/mm3 (4.4-11.0)
[2021-05-19 06:10] LABS: Differential Indicated SCAN CRITERIA MET
[2021-05-19 06:31] LABS: Anisocytosis 1+
[2021-05-19 07:01] LABS: ALB/GLOB Ratio 0.8 RATIO (0.9-2.4); AST(SGOT) 21 U/L (15-37); Alanine Aminotransfer ALT/SGPT 46 U/L (16-61); Albumin, Serum 3.1 g/dL (3.2-5.0); Alkaline Phosphatase 60 U/L (45-117); Anion Gap 9 (5-15); BUN 26 mg/dL (7-18); BUN/Creat Ratio 24.3 RATIO (10-20); Chloride 107 mmol/L (98-107); Cholesterol 121 mg/dL (200); Creatinine, Serum 1.07 mg/dL (0.70-1.30); EST Glomerular Filtration Rate 74 mL/min (>60); Est Glom Filt Rate - Afr Amer 89 mL/min (>60); Estimated Creatinine Clearance 72.01 ml/min; Globulin 3.7 g/dL (2.2-4.2); Glucose 150 mg/dL (74-106); High Density Lipoprotein 31 mg/dL; Protein, Total 6.8 g/dL (6.4-8.2); Sodium Level 137 mmol/L (136-145); Triglycerides 186 mg/dL; Very Low Density Lipoprotein 37 mg/dL (5-40)
--- NOTE | 2021-05-19 07:18 | MRI_ITS ---
EXAM: MR HEAD WITHOUT INTRAVENOUS CONTRAST CLINICAL INDICATION: CVA, dizziness, weakness TECHNIQUE: Multiplanar and multisequence MR images of the brain were obtained without intravenous contrast. This report was created using [employer] report generation technology. COMPARISON: ct head May 18 2021 7:53pm FINDINGS: BRAIN AND EXTRA-AXIAL SPACES: Unremarkable. No intra- or extra-axial hemorrhage. No evidence of acute infarct. No intracranial mass or mass effect. There is preservation of the [place]/white matter interface. Posterior fossa structures are unremarkable. Ventricles are appropriate for age. No hydrocephalus. Basal cisterns are patent. SELLA: Unremarkable. Normal sella turcica, pituitary gland, infundibular stalk, optic chiasm and hypothalamus. AUDITORY SYSTEM: Unremarkable. The internal auditory canals are patent. BONES/JOINTS: Unremarkable. No discrete lytic or blastic abnormalities. SINUSES: Unremarkable as visualized. Clear. MASTOID AIR CELLS: Unremarkable as visualized. Clear. ORBITS: Unremarkable as visualized. Both globes, extraocular muscles, optic nerves and retrobulbar fat appear unremarkable. VASCULATURE: Unremarkable as visualized. Normal flow voids in the major intracranial circulation. MRI/Brain without Contrast IMPRESSION: Negative MRI brain without intravenous contrast. Electronically Signed: Jaret Hicks MD at 15:42 EST ,
[2021-05-19 08:10] LABS: Hemoglobin A1c 6.2 % (3.8-5.6)
[2021-05-19] MEDS: Aspirin 81 MG TAB.CHEW PO (08:55)
[2021-05-19] MEDS: Clopidogrel Bisulfate 75 MG Tablet PO (08:56)
[2021-05-19] MEDS: Paroxetine 20 MG Tablet 40 MG PO (08:56)
[2021-05-19] MEDS: Fenofibrate 145 MG Tablet PO (08:56)
[2021-05-19] MEDS: Insulin U-500 UNITS/ML PEN 120 UNITS SC (08:57)
[2021-05-19] MEDS: 0.9% Saline Lock 10 ML Syringe IV ×2 (09:07→22:43)
[2021-05-19 09:16] LABS: Bedside Glucose 164 mg/dL (70-110)
[2021-05-19] MEDS: Insulin U-500 UNITS/ML PEN 60 UNITS SC (12:39)
[2021-05-19 12:45] LABS: Bedside Glucose 149 mg/dL (70-110)
[2021-05-19 13:52] LABS: Pathologist Review Reviewed
--- NOTE | 2021-05-19 14:54 | PN.HOSP_ITS ---
Documented by User: Oswald HOBBS 05/19/21 15:03 Subjective Subjective Patient is a 65-year-old male lying in a chair, alert and orient x3. Patient reports feeling weak, but denies any further episodes of vertigo since being admitted. Does not appear in acute distress. Objective Data Objective Data Vital Signs: Vital Signs Temp Pulse Resp BP Pulse Ox 98.9 F 83 18 128/64 H 98 05/19/21 12:30 05/19/21 12:30 05/19/21 12:30 05/19/21 12:30 05/19/21 12:30 Oxygen Flow Rate (L/min) 2 Oxygen Delivery Method Nasal Cannula Weight: 301 lb 2.423 oz Body Mass Index (BMI) 43.2 Intake & Output: Intake and Output for Last 24 Hours 05/17/21 05/18/21 05/19/21 23:59 23:59 23:59 Intake Total 500 / 503.75 2208.75 / 2208.75 Output Total 750 / 750 Balance 500 / 503.75 1458.75 / 1458.75 Lab / Micro Data Result Diagrams: 05/19/21 05:48 05/19/21 05:48 Labs: Laboratory Results - last 24 hr 05/18/21 19:43: POC Glucose 140 H 05/18/21 19:50: WBC 16.2 H, RBC 5.51, Hgb 16.9 H, Hct 50.4, MCV 91.5, MCH 30.7, MCHC 33.5, RDW Std Deviation 49.7 H, RDW Coeff of Thao 14.8 H, Plt Count 290, MPV 9.4, Immature Gran % (Auto) 0.700, Neut % (Auto) 87.4 H, Lymph % (Auto) 1.6 L, Bradley % (Auto) 9.7, Eos % (Auto) 0.4, Baso % (Auto) 0.2, Absolute Neuts (auto) 14.2 H, Absolute Lymphs (auto) 0.26 L, Nucleated RBC % 0, Differential Comment SEE COMMENTS, Diff Path Review Reviewed, Platelet Estimate ADEQUATE, RBC Morphology N CHROM, Anisocytosis RARE, Macrocytosis RARE 05/18/21 19:50: PT 13.1, INR 1.1, APTT 27.4 05/18/21 19:50: Sodium 137, Potassium 4.1, Chloride 105, Carbon Dioxide 27.0, Anion Gap 5, BUN 29 H, Creatinine 1.12, Estim Creat Clear Calc 68.80, Est GFR (MDRD) Af Amer 85, Est GFR (MDRD) Non-Af 70, BUN/Creatinine Ratio 25.9 H, Glucose 132 H, Calcium 10.7 H, Troponin I High Sens 31 05/18/21 19:50: D-Dimer Quant (PE/DVT) 0.44 05/18/21 19:50: Magnesium Cancelled 05/18/21 21:31: Procalcitonin 0.26 H 05/18/21 23:56: POC Glucose 158 H 05/19/21 05:48: WBC 14.3 H, RBC 4.79, Hgb 14.6, Hct 45.4, MCV 94.8 H, MCH 30.5, MCHC 32.2, RDW Std Deviation 53.8 H, RDW Coeff of Thao 15.5 H, Plt Count 208, MPV 9.3, Immature Gran % (Auto) 0.400, Neut % (Auto) 86.6 H, Lymph % (Auto) 2.7 L, Bradley % (Auto) 10.1 H, Eos % (Auto) 0.1, Baso % (Auto) 0.1, Absolute Neuts (auto) 12.3 H, Absolute Lymphs (auto) 0.39 L, Nucleated RBC % 0, Anisocytosis 1+ 05/19/21 05:48: Sodium 137, Potassium 4.0, Chloride 107, Carbon Dioxide 21.0, Anion Gap 9, BUN 26 H, Creatinine 1.07, Estim Creat Clear Calc 72.01, Est GFR (MDRD) Af Amer 89, Est GFR (MDRD) Non-Af 74, BUN/Creatinine Ratio 24.3 H, Glucose 150 H, Calcium 10.0, Total Bilirubin 0.70, AST 21, ALT 46, Alkaline Phosphatase 60, Total Protein 6.8, Albumin 3.1 L, Globulin 3.7, Albumin/Globulin Ratio 0.8 L, Triglycerides 186, Cholesterol 121, LDL Cholesterol 53, VLDL Cholesterol 37, HDL Cholesterol 31 L, TSH 1.10 05/19/21 05:48: Hemoglobin A1c 6.2 H 05/19/21 08:33: POC Glucose 164 H 05/19/21 12:37: POC Glucose 149 H Micro: Microbiology 05/18/21 22:13 Nasal Secretion SARS-CoV-2 Antigen (Rapid) - Final Radiography Diagnostic Testing: Radiology Impression Brain CT 05/18/21 19:41 IMPRESSION: 1. No acute intracranial abnormality. 2. Senescent changes. 3. Prominent dental disease with secondary involvement of the right maxillary sinus. 4. Aspect score 10 Individualized dose optimization techniques were used for this CT. at 2006 Reported and signed by: Timbo Shultz MD Electronically Signed: Timbo Shultz MD at 20:05 EST , ADDENDUM: 05/18/212013 IMPRESSION: 1. No acute intracranial abnormality. 2. Senescent changes. 3. Prominent dental disease with secondary involvement of the right maxillary sinus. 4. Aspect score 10 Individualized dose optimization techniques were used for this CT. at 2005 Reported and signed by: Timbo Shultz MD N.B. : The above Results were Read Back by Timbo Shultz MD to Dr. Brady Zaidi MD, and understanding confirmed on 05/18/2021 20:07:48 (ET). Electronically Signed: Timbo Shultz MD at 20:05 EST , Head/Neck CTA 05/18/21 19:42 IMPRESSION: No evidence of arterial stenosis, occlusion, dissection or aneurysm. Individualized dose optimization techniques were used for this CT. at 2018 Reported and signed by: Timbo Shultz MD Electronically Signed: Timbo Shultz MD at 20:17 EST , ADDENDUM: 05/18/212028 IMPRESSION: No evidence of arterial stenosis, occlusion, dissection or aneurysm. Individualized dose optimization techniques were used for this CT. at 2018 Reported and signed by: Timbo Shultz MD N.B. : The above Results were Read Back by Timbo Shultz MD to Dr. Brady Zaidi MD, and understanding confirmed on 05/18/2021 20:22:07 (ET). Electronically Signed: Timbo Shultz MD at 20:17 EST , Chest X-Ray 05/18/21 20:02 IMPRESSION: No radiographic evidence of acute cardiopulmonary disease. at 2036 Reported and signed by: Timbo Shultz MD Electronically Signed: Timbo Shultz MD at 20:35 EST , Echocardiogram 05/18/21 22:29 Interpretation Summary Normal LV size. Left ventricular systolic function is normal. The estimated ejection fraction is 60 %. Bubble contrast study negative for right to left interatrial shunt. Contrast injection was performed. The study was technically limited. Ordering Physician: Purvi Jensen Referring Physician: Mery Raymond Performed By: Arthur Mazariegos RCS Chest X-Ray 05/19/21 05:55 IMPRESSION: Elevation of the right hemidiaphragm with mild increased markings at the right lung base suggestive of atelectasis and/or early infiltrate. Electronically Signed: Rodrigo Suarez MD at 8:42 EST , Physical Exam Const alert, oriented x3 and no apparent distress HEENT head/scalp atraumatic and moist oral mucous membranes Head and Scalp: normocephalic Eyes PERRL and conjunctivae normal Neck no lymphadenopathy, supple and no JVD Resp normal respiratory effort, no retractions and no use of accessory muscles Cardio regular rate, regular rhythm and no JVD GI normal to inspection, nondistended, normoactive bowel sounds Extremity normal to inspection Skin no rashes or lesions noted, no wounds and skin turgor normal Neuro CN's II-XII intact bilaterally Psych affect normal Assessment & Plan Assessment/Plan (1) Vertigo, central: PLAN: Day 1 Discharge planning: Current plan is for patient to discharge home when medically ready. 1) vertigo Brain CT demonstrates no acute intracranial abnormality, CT-A head and neck demonstrates no evidence of arterial stenosis, occlusion, dissection or aneurysm. Echocardiogram obtained demonstrates normal LV size, systolic function and an EF of 60% with negative bubble study. Awaiting brain MRI to rule out stroke, continue meclizine. 2) leukocytosis with hypoxia Hypoxia deserved on admission, patient currently satting 98% on 2 L via nasal cannula. Patient does not endorse using oxygen at home. Patient does report yellow sputum production and feeling weak with fever. CBC shows WBCs at 14.3, improved from admission. Repeat chest x-ray demonstrates mild increased markings at the right lung base suggestive of possible atelectasis or infiltrate. Rapid Covid is negative. Continue Rocephin and azithromycin. 3) DM2 Hold home Metformin. Continue home regimen of U5 100. Continue Accu-Cheks assigned scale insulin. 4) HTN Patient's home amlodipine, Lasix, metolazone, losartan and metoprolol on hold pending MRI. 5) FAVIAN Continue CPAP. 6) hyperlipidemia Continue atorvastatin and fenofibrate 7. CAD Status post stent. Continue Plavix DVT prophylaxis- Lovenox Patient seen by Oswald Hurley PA-C, under the supervision of Dr. Kearney. Time spent on patient care: 10 minutes. Documented by User: Dr. Chey Kearney MD 05/19/21 16:03 Objective Data Lab / Micro Data Result Diagrams: 05/19/21 05:48 05/19/21 05:48 Charges/Coding Addendum Addendum: Patient seen by Oswald Hurley PA-C under my supervision Patient seen and examined. He feels his dizziness has improved significantly today. Patient was due for an MRI today. He went down but got claustrophobic and so could not have it. Was agreeable to having it was given pain medication for back pain as well as IV Ativan to help calm him down. Review of systems otherwise negative. O/E: Const alert, oriented x3 and no apparent distress, morbidly obese HEENT head/scalp atraumatic and moist oral mucous membranes Head and Scalp: normocephalic Eyes PERRL and conjunctivae normal Neck no lymphadenopathy, supple and no JVD Resp normal respiratory effort, mildly diminished breath sounds bibasally, no wheezes or crackles. on 2L of oxygen by nasal canula Cardio regular rate, regular rhythm and no JVD GI normal to inspection, nondistended, normoactive bowel sounds Extremity normal to inspection Skin no rashes or lesions noted, no wounds and skin turgor normal Neuro CN's II-XII intact bilaterally Psych affect normal Assessment and plan #Vertigo * improving. CT of the brain was negative for stroke. for MRI today to rule out stroke. PT/OT on board. Fall precautions. CTA of the head and neck was negative for any evidence of hemodynamically significant stenosis. * 2D echo shwod EF of 60% with negative bubble study. * vertigo likely due to BPPV. Continue meclizine. * PT/OT on board. Fall precautions * #Leukocytosis: * Resolving. Was hypoxic on admission but this has resolved. * WBC was 14.3 today and he does have a cough and mild fever of 99.9F today. * Chest x-ray suggestive of possible atelectasis or infiltrate. * On ceftriaxone and azithromycin for presumed community-acquired pneumonia. * Breathing treatments with bronchodilators. #Hypertension: On amlodipine and Lasix as well as metolazone, losartan and metoprolol. #Type 2 diabetes mellitus: On home dose of insulin U5 100. Insulin sliding scale. Checks ACH S. #Hyperlipidemia: On atorvastatin and fenofibrate #CAD s/p stents: On Plavix and statin as well as metoprolol DVT prophylaxis: Lovenox Disposition: For likely discharge home tomorrow Rest as per Oswald Craven PA-C's note which I have reviewed and endorsed. Total time I spent on the care of the patient today: 25 minutes with PA spending about 10 minutes in the care of the patient making a total of 35 minutes. Visit Charges OBSV E&M: 85325 Subsequent observation care L2
--- NOTE | 2021-05-19 16:04 | CASEMGMT ---
Pt states would like [facility] set up and states no preference for HHC agency as long as it's in-network. Call to [facility] and they state they won't be able see pt until next monday or monday. Referral faxed to [facility] for PT/OT and aide. CM to follow. Po OTTO CM
--- NOTE | 2021-05-19 16:40 | CASEMGMT ---
RN FRED NOTE: Intro role of CM to patient and [facility]ONTES form explained re: Observation status for treatment of vertigo and possible TIA vs CVA. Explained hospitalization will be paid per his insurance policy for Outpatient billing and condition will continue to be evaluated for Inpt necessity. Also let pt know that [facility] sends paper in the billing packet with their phone number if questions arise. Discussed Pharmacy section of MONTES form and self administered medication guideline. Pt verbalizes understanding and does not have further questions. Form signed, copy made and placed in chart, and original given to pt. Kris SEVERINO RN CM
[2021-05-19 17:16] LABS: Bedside Glucose 97 mg/dL (70-110)
[2021-05-19] MEDS: Insulin U-500 UNITS/ML PEN 150 UNITS SC (17:16)
[2021-05-19 17:29] LABS: Bacteria 0 SEEN /hpf (None Seen); Mucous, Urine 0 SEEN /hpf (<or=2+); Red Blood Cells-Urine 0 SEEN /hpf (0-5); Squamous Epithelial Cells - UA 0 SEEN /hpf (0-5)
[2021-05-19 17:48] LABS: Color, Urine Yellow (Yellow); Glucose, Dipstick 1000 mg/dl (Normal); Ketone-Dipstick Negative (Negative); Leukocyte Esterase-Dipstick 25 /ul (Negative); Nitrite-Dipstick Negative (Negative); Occult Blood-Urine Negative /ul (Negative); Protein-Dipstick 15 mg/dl (Negative); Specific Gravity, Urine 1.015 (1.002-1.030); Urine Bilirubin Dipstick Negative (Negative); Urine Clarity Clear (Clear); Urine Urobilinogen Normal (Normal)
[2021-05-19 17:53] LABS: White Blood Cells 0-5 SEEN /hpf (0-5)
[2021-05-19] MEDS: Ceftriaxone 1 GM/50 ML BAG IV (22:16)
[2021-05-20] VITALS (12 sets, daily range): BP systolic 139–162; BP diastolic 74–83; PULSE 74–90; RESP 12–20; TEMP 36.6–36.9; O2SAT 91–97; BMI 43.2
[2021-05-20 00:31] LABS: Bedside Glucose 100 mg/dL (70-110)
[2021-05-20 00:31] LABS: Bedside Glucose 69 mg/dL (70-110)
[2021-05-20 05:51] LABS: Absolute Lymphocyte Count 0.62 X10^3/uL (0.83-4.51); Absolute Neutrophil Count 9.8 X10^3/uL (2.0-7.7); Basophil# 0.03 X10^3/uL; Basophil% 0.2 % (0-1); Eosinophil# 0.09 X10^3/uL; Eosinophils% 0.7 % (0-5); Hematocrit 47.5 % (40-54); Hemoglobin 14.6 g/dL (13.0-16.5); Lymphocyte # 0.62 X10^3/ul (0.83-4.51); Lymphocyte % 4.9 % (19-41); Mean Corp Hgb Conc 30.7 g/dL (32-36); Mean Corpuscular Hgb 29.4 pg (27.0-32.0); Mean Corpuscular Volume 95.8 fL (80-94); Mean Platelet Vol. 9.3 fl (6.2-12.0); Monocyte% 15.1 % (0-10); NRBC Flagged by Analyzer 0 % (0-5); Neutrophil # 9.84 X10^3/uL (2.7-7.7); Neutrophil % 78.4 % (47-70); POSITIVE DIFFERENTIAL YES; Platelet Count 232 K/mm3 (150-450); RBC Distribution Width CV 15.8 % (11.6-14.6); RBC Distribution Width SD 55.5 fl (35.1-43.9); Red Blood Count 4.96 M/mm3 (4.6-6.2); White Blood Count 12.6 K/mm3 (4.4-11.0)
[2021-05-20 05:52] LABS: Differential Indicated SCAN CRITERIA MET
[2021-05-20 06:07] LABS: Anisocytosis 1+
[2021-05-20 06:11] LABS: Anion Gap 6 (5-15); BUN 27 mg/dL (7-18); Calcium,Total 11.2 mg/dL (8.5-10.1); Chloride 108 mmol/L (98-107); EST Glomerular Filtration Rate 80 mL/min (>60); Est Glom Filt Rate - Afr Amer 97 mL/min (>60); Estimated Creatinine Clearance 77.06 ml/min; Glucose 81 mg/dL (74-106); Potassium 4.3 mmol/L (3.5-5.1); Sodium Level 138 mmol/L (136-145)
--- NOTE | 2021-05-20 09:37 | CASEMGMT ---
Per physician patient wants to go to a fdc facility. SW met with patient. Introduced self and role at [facility]. SW provided a list of SNF providers including quality and resource use data and consistent with the patient?s preferred geographic region, medical needs, and insurance network. SW let patient know that he just needs to pick 3 of the facilities he would be okay with and SW will take care of everything else. SW let patient know that the facilities highlighted in pink are the ones that he has to choose from as they take his insurance. SW let patient know SW will stop by in a little bit. Dipika Orr ASSOCIATE PROFESSOR OF VIOLIN LEONCIO
[2021-05-20] MEDS: Aspirin 81 MG TAB.CHEW PO (09:57)
[2021-05-20] MEDS: Insulin Lispro 100 UNIT/ML INSULN.PEN SC ×3 (09:57→21:15)
--- NOTE | 2021-05-20 09:57 | CASEMGMT ---
Nurse Practitioner Veronica spoke with patient and his 3 choices are: [facility], [facility], and [facility]. GLORIA called [facility] with referral and also faxed information to [facility]. Await response. Plan: SNF pending acceptance and insurance approval. Dipika FANG
[2021-05-20] MEDS: Insulin U-500 UNITS/ML PEN 120 UNITS SC (09:58)
[2021-05-20] MEDS: Potassium Chloride Oral Tablet 20 MEQ 40 MEQ PO ×3 (10:06→17:15)
[2021-05-20] MEDS: Enoxaparin 40 MG/0.4 ML Syringe SC ×2 (10:06→21:08)
[2021-05-20] MEDS: Paroxetine 20 MG Tablet 40 MG PO (10:07)
[2021-05-20] MEDS: Clopidogrel Bisulfate 75 MG Tablet PO (10:07)
[2021-05-20] MEDS: Fenofibrate 145 MG Tablet PO (10:08)
[2021-05-20] MEDS: Ranolazine 500 MG Tablet PO ×2 (10:08→21:09)
[2021-05-20 10:26] LABS: MG Sendout 2.4 mg/dL (1.6-2.3)
--- NOTE | 2021-05-20 10:28 | PN.HOSP_ITS ---
Documented by User: Veronica Lion NP, OFFICE ENGINEER-C 05/20/21 10:59 Subjective Subjective Patient seen and examined. States his vertigo symptoms have improved however he continues to feel generally weak. Denies shortness of breath, fever. Denies other symptoms or complaints. Amendable to rehab pending acceptance. Objective Data Objective Data Vital Signs: Vital Signs Temp Pulse Resp BP Pulse Ox 98.4 F 88 18 158/80 H 96 05/20/21 09:46 05/20/21 09:46 05/20/21 09:46 05/20/21 09:46 05/20/21 09:46 Oxygen Flow Rate (L/min) 2 Oxygen Delivery Method Room Air Weight: 301 lb 2.423 oz Body Mass Index (BMI) 43.2 Intake & Output: Intake and Output for Last 24 Hours 05/18/21 05/19/21 05/20/21 23:59 23:59 23:59 Intake Total 500 / 503.75 3058.75 / 3058.75 255 / 255 Output Total 750 / 750 600 / 600 Balance 500 / 503.75 2308.75 / 2308.75 -345 / -345 Lab / Micro Data Result Diagrams: 05/20/21 04:55 05/20/21 04:55 Labs: Laboratory Results - last 24 hr 05/18/21 19:50: Diff Path Review Reviewed 05/18/21 19:50: Magnesium 2.4 H 05/19/21 12:37: POC Glucose 149 H 05/19/21 17:00: Urine Color Yellow, Urine Clarity Clear, Urine pH 6.0, Ur Specific [place] 1.015, Urine Protein 15 H, Urine Glucose (UA) 1000 H, Urine Ketones Negative, Urine Occult Blood Negative, Urine Nitrite Negative, Urine Bilirubin Negative, Urine Urobilinogen Normal, Ur Leukocyte Esterase 25 H, Urine RBC 0 SEEN, Urine WBC 0-5 SEEN, Ur Squamous Epith Cells 0 SEEN, Urine Bacteria 0 SEEN, Urine Mucus 0 SEEN 05/19/21 17:10: POC Glucose 97 05/19/21 22:34: POC Glucose 69 L 05/20/21 00:26: POC Glucose 100 05/20/21 04:55: WBC 12.6 H, RBC 4.96, Hgb 14.6, Hct 47.5, MCV 95.8 H, MCH 29.4, MCHC 30.7 L, RDW Std Deviation 55.5 H, RDW Coeff of Thao 15.8 H, Plt Count 232, MPV 9.3, Immature Gran % (Auto) 0.700, Neut % (Auto) 78.4 H, Lymph % (Auto) 4.9 L, Crowley % (Auto) 15.1 H, Eos % (Auto) 0.7, Baso % (Auto) 0.2, Absolute Neuts (auto) 9.8 H, Absolute Lymphs (auto) 0.62 L, Nucleated RBC % 0, Diff Path Review May foll, Anisocytosis 1+ 05/20/21 04:55: Sodium 138, Potassium 4.3, Chloride 108 H, Carbon Dioxide 24.0, Anion Gap 6, BUN 27 H, Creatinine 1.00, Estim Creat Clear Calc 77.06, Est GFR (MDRD) Af Amer 97, Est GFR (MDRD) Non-Af 80, BUN/Creatinine Ratio 27.0 H, Glucose 81, Calcium 11.2 H Micro: Microbiology 05/19/21 17:00 Urine, Clean Catch Legionella Antigen - Final 05/19/21 17:00 Urine, Clean Catch Streptococcus pneumoniae Antigen (M - Final 05/18/21 22:13 Nasal Secretion SARS-CoV-2 Antigen (Rapid) - Final Radiography Diagnostic Testing: Radiology Impression Echocardiogram 05/18/21 22:29 Interpretation Summary Normal LV size. Left ventricular systolic function is normal. The estimated ejection fraction is 60 %. Bubble contrast study negative for right to left interatrial shunt. Contrast injection was performed. The study was technically limited. Ordering Physician: Purvi Jensen Referring Physician: Mery Raymond Performed By: Arthur Mazariegos RCS Brain MRI 05/19/21 07:18 IMPRESSION: Negative MRI brain without intravenous contrast. Electronically Signed: Jaret Hicks MD at 15:42 EST , Physical Exam Const alert, oriented x3 and no apparent distress Orientation / Consciousness: awake, oriented to person, oriented to place and oriented to time HEENT normocephalic and moist oral mucous membranes Eyes PERRL, EOMs intact bilaterally and conjunctivae normal Neck no lymphadenopathy Resp clear to auscultation bilaterally Auscultation: diminished lung sounds Cardio regular rate, regular rhythm and no murmurs Peripheral Pulses: pulses 2+ throughout GI normal to inspection, nondistended, normoactive bowel sounds, non-tender and non-distended Extremity normal to inspection General Extremity: edema bilateral lower extremity Details: mild Skin no rashes or lesions noted Skin Narrative: Chronic venous stasis skin changes bilateral lower extremities. Lesions: no lesions Rashes: no rashes Trauma: no lacerations or abrasions Neuro CN's II-XII intact bilaterally, no focal motor deficits, no sensory deficits noted and deep tendon reflexes 2+ bilaterally Psych mental status grossly normal and affect normal Assessment & Plan Assessment/Plan (1) Vertigo, central: PLAN: 1. Vertigo, TIA/CVA ruled out-MRI negative. Echocardiogram with EF 60%. As needed meclizine. PT/OT. 2. Right lower lobe pneumonia-patient with leukocytosis, mild fever. Repeat chest x-ray shows possible early infiltrate at the right lung base. Mild hypoxia on admission which resolved. Will treat empirically with 7-day course of antibiotics. Transition to Augmentin to complete course at discharge. Leukocytosis and fever improved. Patient will need walking pulse ox prior to discharge. 3. History of chronic hypoxic respiratory failure-secondary to FAVIAN and secondary pulmonary hypertension. Recently home oxygen discontinued. Follows with pulmonary medicine. 4. 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 5. CAD with history of PCI-continue aspirin, Plavix, statin, Ranexa, losartan, metoprolol. 6. Hypertension-stable, continue home regimen. 7. Hyperlipidemia/hypertriglyceridemia-continue statin, Vascepa. 8. Type 2 diabetes mellitus-continue home oral and insulin regimen. 9. Obesity-encouraged diet and lifestyle modifications. 10. FAVIAN-continue home PAP regimen. 11. Vitamin D deficiency-continue supplementation. DVT prophylaxis-Lovenox This patient was seen by MAVERICK Bryan under the supervision of Dr. Kearney. Time spent examining patient, reviewing data and subsequent management of care: 12 minutes Discharge planning: SNF for rehab pending acceptance. Documented by User: Dr. Chey Kearney MD 05/20/21 15:17 Objective Data Lab / Micro Data Result Diagrams: 05/20/21 04:55 05/20/21 04:55 Charges/Coding Addendum Addendum: Patient seen by Veronica Lion under my supervision Patient seen and examined. His dizziness has improved. MRI of the brain was negative for stroke. Patient had wanted to stay 1 more day and be discharged today but today he says he feels like he is too weak to go home and wants to go to rehab. Review of systems is otherwise negative. O/E: Const alert, oriented x3 and no apparent distress, morbidly obese HEENT head/scalp atraumatic and moist oral mucous membranes Head and Scalp: normocephalic Eyes PERRL and conjunctivae normal Neck no lymphadenopathy, supple and no JVD Resp normal respiratory effort, mildly diminished breath sounds bibasally, no wheezes or crackles. on 2L of oxygen by nasal canula Cardio regular rate, regular rhythm and no JVD GI normal to inspection, nondistended, normoactive bowel sounds Extremity normal to inspection Skin no rashes or lesions noted, no wounds and skin turgor normal Neuro CN's II-XII intact bilaterally Psych affect normal Assessment and plan #Vertigo * improving. CT of the brain was negative for stroke.. CTA of the head and neck was negative for any evidence of hemodynamically significant stenosis. MRI of the brain was also negative for stroke * likely due to BPPV * PT/OT on board. Fall precautions * 2D echo showed EF of 60% with negative bubble study. * On meclizine. We will continue. * #Leukocytosis: * Resolving. Was hypoxic on admission but this has resolved. * WBC is down to 12.6 today. On ceftriaxone and azithromycin for presumed community-acquired pneumonia. * Breathing treatments with bronchodilators. #Hypertension: On amlodipine and Lasix as well as metolazone, losartan and metoprolol. #Type 2 diabetes mellitus: On home dose of insulin U5 100. Insulin sliding scale. Checks ACH S. #Hyperlipidemia: On atorvastatin and fenofibrate #CAD s/p stents: On Plavix and statin as well as metoprolol DVT prophylaxis: Lovenox Disposition: awaiting placement. Rest as per Veronica Lion OFFICE ENGINEER-C's note which I have reviewed and endorsed. Total time I spent on the care of the patient today is 20 minutes with OFFICE ENGINEER spending 12 minutes on the care of the patient making a total of 32 minutes. Visit Charges Inpatient E&M: 11705 Subs Hosp L2
--- NOTE | 2021-05-20 12:04 | CASEMGMT ---
GLORIA received a call from Michelle with [facility] and they can take patient. She will submit for insurance approval. She did let SW know it is possible he could get denied by insurance as he is walking 150'. GLORIA spoke with patient and let him know [facility] can take him. SW also let him know that he could possibly get denied by insurance. SW told him his options would be private pay at the assisted, apply for Medicaid, or go home with home health. Patient said he thinks he might be okay going home. His nephew would take him home, but he would be nervous being home by himself. SW did tell him the private pay costs. SW will let him know as soon as GLORIA hears anything. Plan: [facility] at [place] pending insurance approval. Dipika FANG
[2021-05-20] MEDS: Insulin U-500 UNITS/ML PEN 60 UNITS SC (12:18)
--- NOTE | 2021-05-20 12:40 | CASEMGMT ---
CLARITA IBARRA NOTE: Call placed to Johana @ [facility]. She was made aware referral for [facility] is cancelled d/t pt going to SNF. Kris SEVERINO RN CM
[2021-05-20 12:45] LABS: Bedside Glucose 195 mg/dL (70-110)
[2021-05-20 12:45] LABS: Bedside Glucose 191 mg/dL (70-110)
[2021-05-20 15:26] LABS: Pathologist Review Reviewed
[2021-05-20] MEDS: Insulin U-500 UNITS/ML PEN 150 UNITS SC (17:16)
[2021-05-20 17:46] LABS: Bedside Glucose 123 mg/dL (70-110)
[2021-05-20] MEDS: Acetaminophen 325 MG Tablet 650 MG PO (18:59)
[2021-05-20] MEDS: Ceftriaxone 1 GM/50 ML BAG IV (21:07)
[2021-05-20] MEDS: Atorvastatin Calcium 40 MG Tablet PO (21:09)
[2021-05-20 21:26] LABS: Bedside Glucose 154 mg/dL (70-110)
[2021-05-21] VITALS (8 sets, daily range): BP systolic 151–176; BP diastolic 69–89; PULSE 78–100; RESP 18–20; TEMP 36.8–37; O2SAT 90–95; BMI 43.2
[2021-05-21] MEDS: Acetaminophen 325 MG Tablet 650 MG PO ×2 (04:27→10:08)
[2021-05-21] MEDS: Potassium Chloride Oral Tablet 20 MEQ 40 MEQ PO ×2 (08:37→11:58)
[2021-05-21] MEDS: Enoxaparin 40 MG/0.4 ML Syringe SC (08:37)
[2021-05-21] MEDS: Ranolazine 500 MG Tablet PO (08:37)
[2021-05-21] MEDS: Paroxetine 20 MG Tablet 40 MG PO (08:38)
[2021-05-21] MEDS: Fenofibrate 145 MG Tablet PO (08:38)
[2021-05-21] MEDS: Clopidogrel Bisulfate 75 MG Tablet PO (08:38)
[2021-05-21] MEDS: Aspirin 81 MG TAB.CHEW PO (08:38)
[2021-05-21] MEDS: Insulin U-500 UNITS/ML PEN 120 UNITS SC (08:39)
[2021-05-21] MEDS: oxyCODONE 5 MG Tablet 10 MG PO (10:08)
[2021-05-21 11:35] LABS: Bedside Glucose 170 mg/dL (70-110)
[2021-05-21] MEDS: Insulin U-500 UNITS/ML PEN 60 UNITS SC (11:58)
[2021-05-21] MEDS: Insulin Lispro 100 UNIT/ML INSULN.PEN SC (11:59)
--- NOTE | 2021-05-21 12:03 | TREXTCAR_ITS ---
Documented by User: Veronica Lion NP, DOORPERSON OR LUGGAGE PORTER-C 05/21/21 12:19 Diet 05/18/21 22:29 Diet: Cardiac: Calorie-Controlled Food consistency:: Regular Liquid Consistency:: Regular/Thin How many daily calories?: 1800 calorie Routine Orders/Code Status Enema Type: Fleetz Enema Frequency: Daily PRN Suppository Type: Dulcolax 10mg Suppository Frequency: Daily PRN O2 Liters per Minute: 2 O2 Frequency: PRN Keep PO Greater than or Equal to (%): 90 Routine Lab Work: - (Weekly CBC, BMP) Code Status: Full Code Suggestions for Active Care Change Position every (hours): 2 Times a day to sit in chair: 3 Therapies Weight Bearing: Full weight bearing Physical Therapy: Eval and Treat Occupational Therapy: Eval and Treat Problem/Diagnosis (1) Vertigo, central: Status: Acute Allergies/Procedures Done in Hospital Allergies No Known Allergies Allergy (Verified 05/18/21 18:38) Procedures: 2-D Echocardiogram Type of Care/Length of Stay Estimated LOS: Convalescent Care Less Than 30 days Type of Care Needed: Skilled Rehab Potential: Fair Prognosis: Fair Additional Orders/Day of Discharge H&P will serve as current which was dated: 05/18/21 Day of Discharge: 05/21/21 Dietary and Speech Recommendations Dietitian Recommendations/Changes: continue cardiac, 1800 calorie controlled, consistent CHO diet Speech Linguistic Eval Summary: Fully oriented, alert and conversant. Speech is clear and intelligible. No aphasia, apraxia, or dysarthria. Confrontation and divergent naming WNL. Immediate memory/recall WNL. Patient denies any cognitive ling function compared to baseline. Currently on a reg/thin diet. Respiratory standards met, oxygenating on room air. No further skilled ST warranted at this time. Discharge Plan Admission Admit Date/Time: 05/18/21 21:13 Primary Reason for Your Visit: Vertigo, weakness Attending Provider: Chey Kearney Primary Care Provider: Mery Raymond Discharge Orders/Prescriptions Prescriptions: New meclizine 12.5 mg Tablet 12.5 mg PO TID PRN PRN (Reason: vertigo) Qty: 0 RF: 0 amoxicillin-pot clavulanate 875-125 mg Tablet 875 mg PO BID 5 Days Qty: 0 RF: 0 Continued naproxen sodium [Aleve] 220 mg capsule 440 mg PO BID PRN PRN (Reason: Pain) RF: 0 trazodone 50 mg tablet 50 mg PO QHS PRN (Reason: Sleep) RF: 0 (DME) Handicap Placard See Rx Instructions .ROUTE .MEDSUPPLY Qty: 1 RF: 0 furosemide 40 mg tablet 40 mg PO BID RF: 0 Humulin R U-500 (Conc) Kwikpen 500 unit/mL (3 mL) insulin pen See Rx Instructions SC QHS RF: 0 (DME) FreeStyle Tiffanie 2 [place] Misc See Rx Instructions .ROUTE .MEDSUPPLY Qty: 1 RF: 0 (DME) FreeStyle Tiffanie 2 Sensor Kit See Rx Instructions .ROUTE .MEDSUPPLY Qty: 2 RF: 6 Trulicity 1.5 mg/0.5 mL pen injector 1.5 mg subcut QWEEK Qty: 2 RF: 3 atorvastatin 40 mg tablet 40 mg PO QHS Qty: 90 RF: 3 (DME) pen needle, diabetic [BD Ultra-Fine Lorie Pen Needle] 32 gauge x 5/32 needle See Rx Instructions .ROUTE .MEDSUPPLY Qty: 360 RF: 5 cholecalciferol (vitamin D3) 1,250 mcg (50,000 unit) capsule 1,250 mcg PO QWEEK Qty: 14 RF: 1 icosapent ethyl [Vascepa] 1 gram capsule 2 g PO BID Qty: 180 RF: 3 paroxetine HCl 40 mg tablet 40 mg PO DAILY Qty: 90 RF: 3 metolazone 2.5 MG tablet 2.5 mg PO SUTH RF: 0 albuterol sulfate 90 mcg/actuation HFA aerosol inhaler 2 puff INHALATION Q4H PRN PRN (Reason: Sob &/Or Wheezing) Qty: 18 RF: 6 Jardiance 25 mg tablet 25 mg PO DAILY Qty: 30 RF: 6 furosemide [Lasix] 20 mg tablet 20 mg PO BID Qty: 60 RF: 11 metoprolol succinate 200 mg tablet extended release 24 hr 100 mg PO BID Qty: 90 RF: 3 clopidogrel 75 mg tablet 75 mg PO DAILY Qty: 90 RF: 3 fenofibrate micronized 200 mg capsule 200 mg PO DAILY Qty: 30 RF: 12 (DME) OneTouch Verio test strips Strip See Rx Instructions .ROUTE .MEDSUPPLY Qty: 100 RF: 12 aspirin 81 mg tablet,chewable 81 mg PO DAILY@0800 Qty: 90 RF: 3 amlodipine 10 mg tablet 10 mg PO DAILY Qty: 90 RF: 4 losartan 25 mg tablet 25 mg PO DAILY Qty: 90 RF: 3 metformin 1,000 mg tablet 1,000 mg PO BIDCM Qty: 180 RF: 3 ranolazine 500 mg tablet extended release 12 hr 500 mg PO BID Qty: 180 RF: 3 potassium chloride 20 mEq tablet,ER particles/crystals 40 meq PO TID 90 Days Qty: 540 RF: 1 nitroglycerin 0.4 mg tablet, sublingual 0.4 mg SUBLINGUAL Q5M PRN (Reason: Chest Pain) Qty: 25 RF: 4 Referrals / Follow Up: Mery Raymond MD [Primary Care Provider] - In 1 Week Disposition Disposition (needs filled in before D/C Order can be placed): Assisted Facility Documented by User: Dr. Chey Kearney MD 05/21/21 13:01 Allergies/Procedures Done in Hospital Allergies No Known Allergies Allergy (Verified 05/18/21 18:38) Discharge Plan Admission Admit Date/Time: 05/18/21 21:13 Primary Reason for Your Visit: Vertigo, weakness Attending Provider: Chey Kearney Primary Care Provider: Mery Raymond Discharge Orders/Prescriptions Prescriptions: New meclizine 12.5 mg Tablet 12.5 mg PO TID PRN PRN (Reason: vertigo) Qty: 0 RF: 0 amoxicillin-pot clavulanate 875-125 mg Tablet 875 mg PO BID 5 Days Qty: 0 RF: 0 Continued naproxen sodium [Aleve] 220 mg capsule 440 mg PO BID PRN PRN (Reason: Pain) RF: 0 trazodone 50 mg tablet 50 mg PO QHS PRN (Reason: Sleep) RF: 0 (DME) Handicap Placard See Rx Instructions .ROUTE .MEDSUPPLY Qty: 1 RF: 0 furosemide 40 mg tablet 40 mg PO BID RF: 0 Humulin R U-500 (Conc) Kwikpen 500 unit/mL (3 mL) insulin pen See Rx Instructions SC QHS RF: 0 (DME) FreeStyle Tiffanie 2 [place] Misc See Rx Instructions .ROUTE .MEDSUPPLY Qty: 1 RF: 0 (DME) FreeStyle Tiffanie 2 Sensor Kit See Rx Instructions .ROUTE .MEDSUPPLY Qty: 2 RF: 6 Trulicity 1.5 mg/0.5 mL pen injector 1.5 mg subcut QWEEK Qty: 2 RF: 3 atorvastatin 40 mg tablet 40 mg PO QHS Qty: 90 RF: 3 (DME) pen needle, diabetic [BD Ultra-Fine Lorie Pen Needle] 32 gauge x 5/32 needle See Rx Instructions .ROUTE .MEDSUPPLY Qty: 360 RF: 5 cholecalciferol (vitamin D3) 1,250 mcg (50,000 unit) capsule 1,250 mcg PO QWEEK Qty: 14 RF: 1 icosapent ethyl [Vascepa] 1 gram capsule 2 g PO BID Qty: 180 RF: 3 paroxetine HCl 40 mg tablet 40 mg PO DAILY Qty: 90 RF: 3 metolazone 2.5 MG tablet 2.5 mg PO SUTH RF: 0 albuterol sulfate 90 mcg/actuation HFA aerosol inhaler 2 puff INHALATION Q4H PRN PRN (Reason: Sob &/Or Wheezing) Qty: 18 RF: 6 Jardiance 25 mg tablet 25 mg PO DAILY Qty: 30 RF: 6 furosemide [Lasix] 20 mg tablet 20 mg PO BID Qty: 60 RF: 11 metoprolol succinate 200 mg tablet extended release 24 hr 100 mg PO BID Qty: 90 RF: 3 clopidogrel 75 mg tablet 75 mg PO DAILY Qty: 90 RF: 3 fenofibrate micronized 200 mg capsule 200 mg PO DAILY Qty: 30 RF: 12 (DME) OneTouch Verio test strips Strip See Rx Instructions .ROUTE .MEDSUPPLY Qty: 100 RF: 12 aspirin 81 mg tablet,chewable 81 mg PO DAILY@0800 Qty: 90 RF: 3 amlodipine 10 mg tablet 10 mg PO DAILY Qty: 90 RF: 4 losartan 25 mg tablet 25 mg PO DAILY Qty: 90 RF: 3 metformin 1,000 mg tablet 1,000 mg PO BIDCM Qty: 180 RF: 3 ranolazine 500 mg tablet extended release 12 hr 500 mg PO BID Qty: 180 RF: 3 potassium chloride 20 mEq tablet,ER particles/crystals 40 meq PO TID 90 Days Qty: 540 RF: 1 nitroglycerin 0.4 mg tablet, sublingual 0.4 mg SUBLINGUAL Q5M PRN (Reason: Chest Pain) Qty: 25 RF: 4 Referrals / Follow Up: Mery Raymond MD [Primary Care Provider] - In 1 Week Disposition Disposition (needs filled in before D/C Order can be placed): Assisted Facility
--- NOTE | 2021-05-21 12:18 | CASEMGMT ---
GLORIA received a call from [facility] with Deyvi and patient was approved. GLORIA notified physician, RN, patient, and Nurse Practitioner Veronica. Per [facility] patient does not need a COVID test. Dipika Orr MSW LEONCIO
--- NOTE | 2021-05-21 12:19 | DS.PCM_ITS ---
Documented by User: Veronica Lion NP, DRAW MACHINE OPERATOR-C 05/21/21 12:23 Providers Date of Admission: 05/18/21 Date of Discharge: 05/21/21 Primary Care Physician: Dr. Mery Raymond MD Reason For Visit: VERTIGO, ? TIA/CVA Diagnosis Discharge Diagnosis (1) Vertigo, central: Status: Acute Code(s): H81.4 - Vertigo of central origin Medications at Discharge Home Medications naproxen sodium 220 mg capsule 440 mg PO BID PRN PRN 02/08/18 albuterol sulfate 90 mcg/actuation aerosol inhaler 2 puff INHALATION Q4H PRN PRN #18 g 04/08/19 metolazone 2.5 mg PO SUTH 10/22/19 trazodone 50 mg tablet 50 mg PO QHS PRN 01/13/20 Handicap Placard #1 ea 04/08/20 empagliflozin 25 mg tablet 25 mg PO DAILY #30 tab 06/11/20 furosemide 20 mg tablet 20 mg PO BID #60 tab 08/06/20 metoprolol succinate 200 mg tablet,extended release 24 hr 100 mg PO BID #90 tab 08/06/20 clopidogrel 75 mg tablet 75 mg PO DAILY #90 tab 10/06/20 fenofibrate micronized 200 mg capsule 200 mg PO DAILY #30 cap 11/13/20 blood sugar diagnostic #100 ea 11/23/20 aspirin 81 mg chewable tablet 81 mg PO DAILY@0800 #90 tab 11/25/20 amlodipine 10 mg tablet 10 mg PO DAILY #90 tab 12/18/20 losartan 25 mg tablet 25 mg PO DAILY #90 tab 01/12/21 metformin 1,000 mg tablet 1,000 mg PO BIDCM #180 tab 01/12/21 ranolazine 500 mg tablet,extended release,12 hr 500 mg PO BID #180 tab 02/04/21 Trulicity 1.5 mg/0.5 mL subcutaneous pen injector 1.5 mg SUBCUT QWEEK #2 ml NS 02/16/21 atorvastatin 40 mg tablet 40 mg PO QHS #90 tab 02/16/21 flash glucose scanning reader #1 ea 02/16/21 flash glucose sensor #2 ea 02/16/21 pen needle, diabetic 32 gauge x /32 #360 ea 02/16/21 potassium chloride 20 mEq tablet,extended release(part/cryst) 40 meq PO TID 90 Days #540 tab 03/01/21 furosemide 40 mg tablet 40 mg PO BID tab 05/04/21 insulin regular hum U-500 conc See Rx Instructions SC QHS ml 05/04/21 nitroglycerin 0.4 mg sublingual tablet 0.4 mg SUBLINGUAL Q5M PRN #25 tab 05/05/21 cholecalciferol (vitamin D3) 1,250 mcg (50,000 unit) capsule 1,250 mcg PO QWEEK #14 cap 05/11/21 icosapent ethyl 1 gram capsule 2 g PO BID #180 cap 05/11/21 paroxetine HCl 40 mg tablet 40 mg PO DAILY #90 tab 05/11/21 amoxicillin-pot clavulanate 875 mg PO BID 5 Days #0 tab 05/21/21 meclizine 12.5 mg PO TID PRN PRN #0 tab 05/21/21 Hospital Course Operations None Procedures 2-D Echocardiogram Summary of Care Provided Hospital Course: Patient is a 65-year-old male admitted to [facility] due to dizziness and weakness. 1. Vertigo, TIA/CVA ruled out-MRI negative. Echocardiogram with EF 60%. As needed meclizine. PT/OT. SNF for rehab at discharge. 2. Right lower lobe pneumonia-patient with leukocytosis, mild fever. Repeat chest x-ray shows possible early infiltrate at the right lung base. Mild hypoxia on admission which resolved. Will treat empirically with 7-day course of antibiotics. Transition to Augmentin to complete course at discharge. Leukocytosis and fever improved. Patient will need walking pulse ox prior to discharge from SNF. 3. History of chronic hypoxic respiratory failure-secondary to FAVIAN and secondary pulmonary hypertension. Recently home oxygen discontinued. Follows with pulmonary medicine. 4. 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 5. CAD with history of PCI-continue aspirin, Plavix, statin, Ranexa, losartan, metoprolol. 6. Hypertension-stable, continue home regimen. 7. Hyperlipidemia/hypertriglyceridemia-continue statin, Vascepa. 8. Type 2 diabetes mellitus-continue home oral and insulin regimen. 9. Obesity-encouraged diet and lifestyle modifications. 10. FAVIAN-continue home PAP regimen. 11. Vitamin D deficiency-continue supplementation. Physical Exam Const alert, oriented x3 and no apparent distress Orientation / Consciousness: awake, oriented to person, oriented to place and oriented to time HEENT normocephalic and moist oral mucous membranes Eyes PERRL, EOMs intact bilaterally and conjunctivae normal Neck no lymphadenopathy Resp clear to auscultation bilaterally Auscultation: diminished lung sounds Cardio regular rate, regular rhythm and no murmurs Peripheral Pulses: pulses 2+ throughout GI normal to inspection, nondistended, normoactive bowel sounds, non-tender and non-distended Extremity normal to inspection General Extremity: edema bilateral lower extremity Details: mild Skin no rashes or lesions noted Skin Narrative: Chronic venous stasis skin changes bilateral lower extremities. Lesions: no lesions Rashes: no rashes Trauma: no lacerations or abrasions Neuro CN's II-XII intact bilaterally, no focal motor deficits, no sensory deficits noted and deep tendon reflexes 2+ bilaterally Psych mental status grossly normal and affect normal Patient seen and examined prior to discharge. Physical assessment as noted above. Patient is stable for discharge with follow up recommendations as noted above. This patient was seen by MAVERICK Bryan under the supervision of Dr. Kearney. Time spent examining patient, reviewing data and subsequent management of care: 16 Minutes Weight / BMI Weight Weight: 307 lb 15.772 oz Body Mass Index (BMI) 43.2 ABG / Lab / Microbiology Data Result Diagrams: 05/20/21 04:55 05/20/21 04:55 Laboratory: Laboratory Results - last 24 hr 05/20/21 04:55: Diff Path Review Reviewed 05/20/21 09:42: POC Glucose 195 H 05/20/21 12:17: POC Glucose 191 H 05/20/21 17:11: POC Glucose 123 H 05/20/21 21:11: POC Glucose 154 H 05/21/21 11:29: POC Glucose 170 H Microbiology: Microbiology 05/19/21 17:00 Urine, Clean Catch Legionella Antigen - Final 05/19/21 17:00 Urine, Clean Catch Streptococcus pneumoniae Antigen (M - Final 05/18/21 22:13 Nasal Secretion SARS-CoV-2 Antigen (Rapid) - Final Meaningful Use Info Meaningful Use Diagnoses (Choose all that apply): None applicable Discharge Plan Admission Admit Date/Time: 05/18/21 21:13 Primary Reason for Your Visit: Vertigo, weakness Attending Provider: Chey Kearney Primary Care Provider: Mery Raymond Discharge Orders/Prescriptions Prescriptions: New meclizine 12.5 mg Tablet 12.5 mg PO TID PRN PRN (Reason: vertigo) Qty: 0 RF: 0 amoxicillin-pot clavulanate 875-125 mg Tablet 875 mg PO BID 5 Days Qty: 0 RF: 0 Continued naproxen sodium [Aleve] 220 mg capsule 440 mg PO BID PRN PRN (Reason: Pain) RF: 0 trazodone 50 mg tablet 50 mg PO QHS PRN (Reason: Sleep) RF: 0 (DME) Handicap Placard See Rx Instructions .ROUTE .MEDSUPPLY Qty: 1 RF: 0 furosemide 40 mg tablet 40 mg PO BID RF: 0 Humulin R U-500 (Conc) Kwikpen 500 unit/mL (3 mL) insulin pen See Rx Instructions SC QHS RF: 0 (DME) FreeStyle Tiffanie 2 [place] Misc See Rx Instructions .ROUTE .MEDSUPPLY Qty: 1 RF: 0 (DME) FreeStyle Tiffanie 2 Sensor Kit See Rx Instructions .ROUTE .MEDSUPPLY Qty: 2 RF: 6 Trulicity 1.5 mg/0.5 mL pen injector 1.5 mg subcut QWEEK Qty: 2 RF: 3 atorvastatin 40 mg tablet 40 mg PO QHS Qty: 90 RF: 3 (DME) pen needle, diabetic [BD Ultra-Fine Lorie Pen Needle] 32 gauge x 5/32 needle See Rx Instructions .ROUTE .MEDSUPPLY Qty: 360 RF: 5 cholecalciferol (vitamin D3) 1,250 mcg (50,000 unit) capsule 1,250 mcg PO QWEEK Qty: 14 RF: 1 icosapent ethyl [Vascepa] 1 gram capsule 2 g PO BID Qty: 180 RF: 3 paroxetine HCl 40 mg tablet 40 mg PO DAILY Qty: 90 RF: 3 metolazone 2.5 MG tablet 2.5 mg PO SUTH RF: 0 albuterol sulfate 90 mcg/actuation HFA aerosol inhaler 2 puff INHALATION Q4H PRN PRN (Reason: Sob &/Or Wheezing) Qty: 18 RF: 6 Jardiance 25 mg tablet 25 mg PO DAILY Qty: 30 RF: 6 furosemide [Lasix] 20 mg tablet 20 mg PO BID Qty: 60 RF: 11 metoprolol succinate 200 mg tablet extended release 24 hr 100 mg PO BID Qty: 90 RF: 3 clopidogrel 75 mg tablet 75 mg PO DAILY Qty: 90 RF: 3 fenofibrate micronized 200 mg capsule 200 mg PO DAILY Qty: 30 RF: 12 (DME) OneTouch Verio test strips Strip See Rx Instructions .ROUTE .MEDSUPPLY Qty: 100 RF: 12 aspirin 81 mg tablet,chewable 81 mg PO DAILY@0800 Qty: 90 RF: 3 amlodipine 10 mg tablet 10 mg PO DAILY Qty: 90 RF: 4 losartan 25 mg tablet 25 mg PO DAILY Qty: 90 RF: 3 metformin 1,000 mg tablet 1,000 mg PO BIDCM Qty: 180 RF: 3 ranolazine 500 mg tablet extended release 12 hr 500 mg PO BID Qty: 180 RF: 3 potassium chloride 20 mEq tablet,ER particles/crystals 40 meq PO TID 90 Days Qty: 540 RF: 1 nitroglycerin 0.4 mg tablet, sublingual 0.4 mg SUBLINGUAL Q5M PRN (Reason: Chest Pain) Qty: 25 RF: 4 Referrals / Follow Up: Mery Raymond MD [Primary Care Provider] - In 1 Week Disposition Disposition (needs filled in before D/C Order can be placed): [facility] Documented by User: Dr. Chey Kearney MD 05/21/21 16:16 Providers Date of Admission: 05/18/21 Reason For Visit: VERTIGO, ? TIA/CVA Medications at Discharge Home Medications naproxen sodium 220 mg capsule 440 mg PO BID PRN PRN 02/08/18 albuterol sulfate 90 mcg/actuation aerosol inhaler 2 puff INHALATION Q4H PRN PRN #18 g 04/08/19 metolazone 2.5 mg PO SUTH 10/22/19 trazodone 50 mg tablet 50 mg PO QHS PRN 01/13/20 Handicap Placard #1 ea 04/08/20 empagliflozin 25 mg tablet 25 mg PO DAILY #30 tab 06/11/20 furosemide 20 mg tablet 20 mg PO BID #60 tab 08/06/20 metoprolol succinate 200 mg tablet,extended release 24 hr 100 mg PO BID #90 tab 08/06/20 clopidogrel 75 mg tablet 75 mg PO DAILY #90 tab 10/06/20 fenofibrate micronized 200 mg capsule 200 mg PO DAILY #30 cap 11/13/20 blood sugar diagnostic #100 ea 11/23/20 aspirin 81 mg chewable tablet 81 mg PO DAILY@0800 #90 tab 11/25/20 amlodipine 10 mg tablet 10 mg PO DAILY #90 tab 12/18/20 losartan 25 mg tablet 25 mg PO DAILY #90 tab 01/12/21 metformin 1,000 mg tablet 1,000 mg PO BIDCM #180 tab 01/12/21 ranolazine 500 mg tablet,extended release,12 hr 500 mg PO BID #180 tab 02/04/21 Trulicity 1.5 mg/0.5 mL subcutaneous pen injector 1.5 mg SUBCUT QWEEK #2 ml NS 02/16/21 atorvastatin 40 mg tablet 40 mg PO QHS #90 tab 02/16/21 flash glucose scanning reader #1 ea 02/16/21 flash glucose sensor #2 ea 02/16/21 pen needle, diabetic 32 gauge x 5/32 #360 ea 02/16/21 potassium chloride 20 mEq tablet,extended release(part/cryst) 40 meq PO TID 90 Days #540 tab 03/01/21 furosemide 40 mg tablet 40 mg PO BID tab 05/04/21 insulin regular hum U-500 conc See Rx Instructions SC QHS ml 05/04/21 nitroglycerin 0.4 mg sublingual tablet 0.4 mg SUBLINGUAL Q5M PRN #25 tab 05/05/21 cholecalciferol (vitamin D3) 1,250 mcg (50,000 unit) capsule 1,250 mcg PO QWEEK #14 cap 05/11/21 icosapent ethyl 1 gram capsule 2 g PO BID #180 cap 05/11/21 paroxetine HCl 40 mg tablet 40 mg PO DAILY #90 tab 05/11/21 amoxicillin-pot clavulanate 875 mg PO BID 5 Days #0 tab 05/21/21 meclizine 12.5 mg PO TID PRN PRN #0 tab 05/21/21 ABG / Lab / Microbiology Data Result Diagrams: 05/20/21 04:55 05/20/21 04:55 Discharge Plan Admission Admit Date/Time: 05/18/21 21:13 Primary Reason for Your Visit: Vertigo, weakness Attending Provider: Chey Kearney Primary Care Provider: Mery Raymond Discharge Orders/Prescriptions Prescriptions: New meclizine 12.5 mg Tablet 12.5 mg PO TID PRN PRN (Reason: vertigo) Qty: 0 RF: 0 amoxicillin-pot clavulanate 875-125 mg Tablet 875 mg PO BID 5 Days Qty: 0 RF: 0 Continued naproxen sodium [Aleve] 220 mg capsule 440 mg PO BID PRN PRN (Reason: Pain) RF: 0 trazodone 50 mg tablet 50 mg PO QHS PRN (Reason: Sleep) RF: 0 (DME) Handicap Placard See Rx Instructions .ROUTE .MEDSUPPLY Qty: 1 RF: 0 furosemide 40 mg tablet 40 mg PO BID RF: 0 Humulin R U-500 (Conc) Kwikpen 500 unit/mL (3 mL) insulin pen See Rx Instructions SC QHS RF: 0 (DME) FreeStyle Tiffanie 2 [place] Misc See Rx Instructions .ROUTE .MEDSUPPLY Qty: 1 RF: 0 (DME) FreeStyle Tiffanie 2 Sensor Kit See Rx Instructions .ROUTE .MEDSUPPLY Qty: 2 RF: 6 Trulicity 1.5 mg/0.5 mL pen injector 1.5 mg subcut QWEEK Qty: 2 RF: 3 atorvastatin 40 mg tablet 40 mg PO QHS Qty: 90 RF: 3 (DME) pen needle, diabetic [BD Ultra-Fine Lorie Pen Needle] 32 gauge x 5/32 needle See Rx Instructions .ROUTE .MEDSUPPLY Qty: 360 RF: 5 cholecalciferol (vitamin D3) 1,250 mcg (50,000 unit) capsule 1,250 mcg PO QWEEK Qty: 14 RF: 1 icosapent ethyl [Vascepa] 1 gram capsule 2 g PO BID Qty: 180 RF: 3 paroxetine HCl 40 mg tablet 40 mg PO DAILY Qty: 90 RF: 3 metolazone 2.5 MG tablet 2.5 mg PO SUTH RF: 0 albuterol sulfate 90 mcg/actuation HFA aerosol inhaler 2 puff INHALATION Q4H PRN PRN (Reason: Sob &/Or Wheezing) Qty: 18 RF: 6 Jardiance 25 mg tablet 25 mg PO DAILY Qty: 30 RF: 6 furosemide [Lasix] 20 mg tablet 20 mg PO BID Qty: 60 RF: 11 metoprolol succinate 200 mg tablet extended release 24 hr 100 mg PO BID Qty: 90 RF: 3 clopidogrel 75 mg tablet 75 mg PO DAILY Qty: 90 RF: 3 fenofibrate micronized 200 mg capsule 200 mg PO DAILY Qty: 30 RF: 12 (DME) OneTouch Verio test strips Strip See Rx Instructions .ROUTE .MEDSUPPLY Qty: 100 RF: 12 aspirin 81 mg tablet,chewable 81 mg PO DAILY@0800 Qty: 90 RF: 3 amlodipine 10 mg tablet 10 mg PO DAILY Qty: 90 RF: 4 losartan 25 mg tablet 25 mg PO DAILY Qty: 90 RF: 3 metformin 1,000 mg tablet 1,000 mg PO BIDCM Qty: 180 RF: 3 ranolazine 500 mg tablet extended release 12 hr 500 mg PO BID Qty: 180 RF: 3 potassium chloride 20 mEq tablet,ER particles/crystals 40 meq PO TID 90 Days Qty: 540 RF: 1 nitroglycerin 0.4 mg tablet, sublingual 0.4 mg SUBLINGUAL Q5M PRN (Reason: Chest Pain) Qty: 25 RF: 4 Referrals / Follow Up: Mery Raymond MD [Primary Care Provider] - In 1 Week Disposition Disposition (needs filled in before D/C Order can be placed): [facility] Charges/Coding Addendum Addendum: Patient seen by Veronica TEMPLE under my supervision Patient is a 65 y/o with a PMH as outlined who was admitted with a complaint of dizziness which worsened when sitting to standing. He was admitted to be managed for vertigo. CT of the brain was negative for any evidence of stroke and MRI of the brain done was also negative for any evidence of stroke. 2D echo done showed EF of 60%. Chest x-ray done also showed evidence of right lower lobe pneumonia so patient was treated with 7-day course of antibiotics. Since CT and MRI of the brain were negative, his vertigo was thought to be likely due to BPPV. Orthos tatics were also negative. Patient was initially amenable to going home but subsequently said he thought he needed more help and so wanted placement. [facility] and is to follow-up with his primary care doctor in 1 to 2 weeks. He was discharged on Augmentin to complete a 7-day course of antibiotics. Patient seen and examined prior to discharge. He complained of chronic bilateral shoulder pain which he wanted follow-up with his PCP for to see if he would need surgery. Review of stents otherwise negative. Labs and vitals reviewed. Home medication reviewed and reconciled. O/E: Const alert, oriented x3 and no apparent distress, morbidly obese HEENT head/scalp atraumatic and moist oral mucous membranes Head and Scalp: normocephalic Eyes PERRL and conjunctivae normal Neck no lymphadenopathy, supple and no JVD Resp normal respiratory effort, mildly diminished breath sounds bibasally, no wheezes or crackles. on 2L of oxygen by nasal canula Cardio regular rate, regular rhythm and no JVD GI normal to inspection, nondistended, normoactive bowel sounds Extremity normal to inspection Skin no rashes or lesions noted, no wounds and skin turgor normal Neuro CN's II-XII intact bilaterally Psych affect normal Plan is for discharge to SNF. Rest as per Veronica iLon DRAW MACHINE OPERATOR-Cs note, which I have reviewed and endorsed. Total time I spent on patient's care and discharge plannin mins, with DRAW MACHINE OPERATOR spending 16 minutes making a total of 51 minutes. Visit Charges Inpatient E&M: 15429 Disch Hosp
--- NOTE | 2021-05-21 14:17 | CASEMGMT ---
GLORIA arranged for patient to get picked up at 3p via [employer] van by [facility]. SW faxed orders and knot picker cloth time to [facility]. SW completed a PASRR as patient is observation status. GLORIA notified RN, litigation legal secretary, Michelle at [facility], and patient. All in agreement with discharge plan. Plan: d/c to [facility] at [place] under skilled level of care on a PASRR as he was observation status in the hospital. [facility] transported via [employer] van. Dipika FANG
== END 2021-05-21 12:06 | disposition skilled nursing facility (03) ==
LOC: ED 20:56 → PCU 21:32
PROVIDERS: Physician Assistant; Admitting Provider Family Medicine; Emergency Provider Emergency Medicine; PCP Internal Medicine; Visit Provider Student in an Organized Health Care Education/Training Program
DX: H81.4 Vertigo of central origin (principal); I27.29 Other secondary pulmonary hypertension; J96.11 Chronic respiratory failure with hypoxia; E66.01 Morbid (severe) obesity due to excess calories; Z68.41 Body mass index [BMI] 40.0-44.9, adult; E11.9 Type 2 diabetes mellitus without complications; Z79.4 Long term (current) use of insulin; I25.10 Atherosclerotic heart disease of native coronary artery without angina pectoris; R09.02 Hypoxemia; H93.19 Tinnitus, unspecified ear; F41.9 Anxiety disorder, unspecified; R11.0 Nausea; G89.29 Other chronic pain; E55.9 Vitamin D deficiency, unspecified; I10 Essential (primary) hypertension; Z79.02 Long term (current) use of antithrombotics/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; M25.512 Pain in left shoulder; M25.511 Pain in right shoulder; F32.A Depression, unspecified; J18.9 Pneumonia, unspecified organism; G47.33 Obstructive sleep apnea (adult) (pediatric); D72.829 Elevated white blood cell count, unspecified; E78.5 Hyperlipidemia, unspecified; Z79.82 Long term (current) use of aspirin; Z79.899 Other long term (current) drug therapy; M19.90 Unspecified osteoarthritis, unspecified site; Z86.718 Personal history of other venous thrombosis and embolism; Z86.711 Personal history of pulmonary embolism; R29.700 NIHSS score 0; I44.0 Atrioventricular block, first degree; R94.31 Abnormal electrocardiogram [ECG] [EKG]
CPT/HCPCS: 96366; 36415; 70450; 70496; 70498; 70551; 71045; 80048; 80053; 80061; 81001; 82962; 83036; 83735; 84145; 84443; 84484; 85025; 85379; 85610; 85730; 87426; 87449; 92507; 92523; 92610; 93005; 93306; 94002; 94762; 96361; 96365; 96367; 96372; 96375; 97110; 97116; 97162; 97166; 97530; 97535; 99218; 99251; 99285; J7030; J7040; J7050; Q9957; Q9967; A4216; C8929; G0378; G0463; J2405

== ENCOUNTER 2021-06-08 17:33 | Emergency (ER) | payer MEDICARE, SELFPAY ==
[2021-05-11 12:06] VITALS: BMI 43.3
[2021-06-08 17:35] VITALS: BP 158/85; PULSE 90; RESP 20; TEMP 36.9; O2SAT 96; BMI 42.6
--- NOTE | 2021-06-08 17:51 | EX.ED.DYSGE1 ---
HPI History of Present Illness Chief Complaint: Weakness Detail of Chief Complaint: Generalized weakness that started yesterday Onset/Context/Timing Onset: Yesterday Context: Sudden Onset Timing: Continuous Quality: Generalized weakness upper extremity, shoulders and lower extremity Current Severity: Mild Maximum Severity: Moderate Worsened by: Nothing Relieved by: Nothing Associated Symptoms Associated Symptoms: No associated symptoms Narrative Narrative: Patient is a 65-year-old morbidly obese gentleman with multiple medical problems including obstructive sleep apnea. Patient states he is compliant with his BiPAP machine. He does report feeling tired and sleepy compared to normal. Patient's had increased swelling. He does endorse history of congestive heart failure. He denies orthopnea or PND. He denies chest discomfort. He does have remote history of PE and DVT. He is presently not on an anticoagulant. He is on Plavix. Patient denies fever, chills night sweats. Patient denies headache. Patient denies double vision, blurred vision loss of vision. He was unaware that his eyes were injected. He does have ringing in his ears, which is chronic. He denies decreased hearing or drainage from his ears. He does complain of nasal congestion, which is chronic. He does have a slight cough which is nonproductive. He denies chest pain of any type. He denies pain with breathing. He denies abdominal pain, nausea, vomiting or diarrhea. He denies black or maroon-colored stool. He denies urologic symptoms. Prior similar symptoms: Yes (1 month ago and told it was vertigo.) Recent Illness/Hospitalization: Yes [facility] Medical History Abnormal chest xray Acquired left ventricular hypertrophy Arthritis Atherosclerosis of coronary artery of [place] heart without angina pectoris Chest discomfort Chronic hypoxemic respiratory failure Colon cancer screening Diabetes Dyspnea on exertion Epistaxis Essential (primary) hypertension Fatigue Flu vaccine need Health care maintenance History of DVT (deep vein thrombosis) History of pulmonary embolism Hypertension Hypertriglyceridemia Hypoxia Irregular heart beat Morbid obesity with BMI of 40.0-44.9, adult Near syncope Obesity FAVIAN (obstructive sleep apnea) Osteoarthritis Pure hypercholesterolemia Home Medications naproxen sodium 220 mg capsule 440 mg PO BID PRN PRN 02/08/18 [History Last Taken 10/22/19] albuterol sulfate 90 mcg/actuation aerosol inhaler 2 puff INHALATION Q4H PRN PRN #18 g 04/08/19 [Rx Last Taken 10/22/19] metolazone 2.5 mg PO SUTH 10/22/19 [History Last Taken Unknown] trazodone 50 mg tablet 50 mg PO QHS PRN 01/13/20 [History Last Taken Unknown] Handicap Placard #1 ea 04/08/20 [Rx Last Taken Unknown] empagliflozin 25 mg tablet 25 mg PO DAILY #30 tab 06/11/20 [Rx Last Taken Unknown] furosemide 20 mg tablet 20 mg PO BID #60 tab 08/06/20 [Rx Last Taken Unknown] metoprolol succinate 200 mg tablet,extended release 24 hr 100 mg PO BID #90 tab 08/06/20 [Rx Last Taken Unknown] clopidogrel 75 mg tablet 75 mg PO DAILY #90 tab 10/06/20 [Rx Last Taken Unknown] fenofibrate micronized 200 mg capsule 200 mg PO DAILY #30 cap 11/13/20 [Rx Last Taken Unknown] blood sugar diagnostic #100 ea 11/23/20 [Rx Last Taken Unknown] aspirin 81 mg chewable tablet 81 mg PO DAILY@0800 #90 tab 11/25/20 [Rx Last Taken Unknown] amlodipine 10 mg tablet 10 mg PO DAILY #90 tab 12/18/20 [Rx Last Taken Unknown] losartan 25 mg tablet 25 mg PO DAILY #90 tab 01/12/21 [Rx Last Taken Unknown] metformin 1,000 mg tablet 1,000 mg PO BIDCM #180 tab 01/12/21 [Rx Last Taken Unknown] ranolazine 500 mg tablet,extended release,12 hr 500 mg PO BID #180 tab 02/04/21 [Rx Last Taken Unknown] Trulicity 1.5 mg/0.5 mL subcutaneous pen injector 1.5 mg SUBCUT QWEEK #2 ml NS 02/16/21 [Rx Last Taken Unknown] atorvastatin 40 mg tablet 40 mg PO QHS #90 tab 02/16/21 [Rx Last Taken Unknown] flash glucose scanning reader #1 ea 02/16/21 [Rx Last Taken Unknown] flash glucose sensor #2 ea 02/16/21 [Rx Last Taken Unknown] pen needle, diabetic 32 gauge x 5/32 #360 ea 02/16/21 [Rx Last Taken Unknown] potassium chloride 20 mEq tablet,extended release(part/cryst) 40 meq PO TID 90 Days #540 tab 03/01/21 [Rx Last Taken Unknown] furosemide 40 mg tablet 40 mg PO BID tab 05/04/21 [History Last Taken Unknown] insulin regular hum U-500 conc See Rx Instructions SC QHS ml 05/04/21 [History Last Taken Unknown] nitroglycerin 0.4 mg sublingual tablet 0.4 mg SUBLINGUAL Q5M PRN #25 tab 05/05/21 [Rx Last Taken Unknown] cholecalciferol (vitamin D3) 1,250 mcg (50,000 unit) capsule 1,250 mcg PO QWEEK #14 cap 05/11/21 [Rx Last Taken Unknown] icosapent ethyl 1 gram capsule 2 g PO BID #180 cap 05/11/21 [Rx Last Taken Unknown] paroxetine HCl 40 mg tablet 40 mg PO DAILY #90 tab 05/11/21 [Rx Last Taken Unknown] amoxicillin-pot clavulanate 875 mg PO BID 5 Days #0 tab 05/21/21 [Rx Last Taken Unknown] meclizine 12.5 mg PO TID PRN PRN #0 tab 05/21/21 [Rx Last Taken Unknown] Allergy/AdvReac Type Severity Reaction Status Date / Time No Known Allergies Allergy Verified 06/08/21 17:39 Family History Mother Colon cancer Sister CAD (coronary artery disease) CABG x 5 Diabetes Myocardial infarction, Onset Age: 67 Father Crohns disease Surgical History History of appendectomy 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 Smoking Status: Never smoker second hand exposure: Yes alcohol intake: former year quit: 2003 details: Sober since 2003. substance use type: former substance user Date of last use: 04/10/2004 and marijuana caffeine: Yes Type: carbonated beverages Number of servings: 2 and coffee Number of servings: 2 what type of physical activity do you participate in: none ROS ROS ED Constitutional Constitutional ED: Reports other Details: Fatigue and sleepiness ; Denies chills, fever(s), subjective, sweats or weight loss Eyes Eyes: Denies blurry vision, change in vision or diplopia ENT ENT ED: Denies ear pain, rhinorrhea or sore throat Cardiovascular Cardiovascular: Denies chest pain, orthopnea, palpitations, paroxysmal nocturnal dyspnea or racing heartbeat Respiratory/Chest Respiratory/Chest: Reports cough; Denies dyspnea, dyspnea on exertion, orthopnea, paroxysmal nocturnal dyspnea or sputum Gastrointestinal Gastrointestinal: Denies abdominal pain, diarrhea, melena, nausea or vomiting Genitourinary Genitourinary ED: Denies dysuria, hematuria or urinary frequency Musculoskeletal Musculoskeletal: Denies arthralgias, back pain, myalgias or neck pain Integumentary Denies rash Neurologic Neurologic: Reports weakness; Denies headache(s) or paresthesias Endocrine Endocrinology: Denies polydipsia, polyphagia or polyuria Hematologic/Lymphatic Hematologic/Lymphatic: Denies anemia, easy bleeding or easy bruising Allergic/Immunologic Allergic/Immunologic ED: Denies mouth swelling or urticaria EXAM Physical Exam Const Vital Signs: 06/08/21 17:35 06/08/21 17:40 06/08/21 19:16 Temperature 98.4 F 98.6 F Temperature Source Oral Temporal Pulse Rate 90 84 Respiratory Rate 20 H 25 H Respiratory Effort Normal Non-Labored Respiratory Pattern Normal Blood Pressure 158/85 H 134/74 H Blood Pressure Mean 109 94 Pulse Ox 96 Oxygen Delivery Method Room Air Room Air Positive well nourished, well developed and obese General Appearance ED: well developed and NAD; Negative for pallor Nutritional Appearance: obese HEENT Reports TM's clear and moist mucous membranes HEENT Narrative: Uvula midline. No erythema exudate posterior pharynx. There is no into angioedema. Negative for trauma or tenderness Tympanic Membrane ED: Yes TM's clear Eyes PERRL and EOMs intact bilaterally Eyes Narrative: Sclera and conjunctival are injected. There is no drainage. General Eye ED: Negative for pale conjunctiva or scleral icterus Neck no lymphadenopathy, supple and no JVD Chest Wall inspection of chest normal Resp normal respiratory effort and clear to auscultation bilaterally Cardio regular rate, regular rhythm, S1 normal heart sound, S2 normal heart sound and no murmurs GI normal to inspection, nondistended, normoactive bowel sounds and non-tender Palpation: soft Back/Spine no CVA tenderness Thoracic Spine / Upper Back: Negative for thoracic spinal tenderness or paraspinal muscle tenderness Lumbar Spine / Lower Back: Negative for lumbar spinal tenderness Extremity Negative for normal to inspection Extremity Narrative: Patient has evidence of dry skin. There is discoloration with skin most likely due to venous stasis dermatitis. He has significant pitting edema. Unable to appreciate DP or PT pulse because of the edema. General Extremety ED: Yes edema; Negative for tenderness General Extremity: edema Neuro oriented x3 and CN's II-XII intact bilaterally Sensorium / Orientation: alert Psych mental status grossly normal Skin No no rashes or lesions noted and no wounds Skin Narrative: Previously described General Skin Exam: Negative for jaundice or pallor MDM MDM MDM Narrative Medical decision making narrative: Patient with vague complaints. Will obtain CBC to assess white count and rule out anemia. Since patient has history of stage III kidney disease will obtain basic Sommer panel to assess renal function and also to evaluate albumin. UA to assess for evidence of proteinuria or infection. Chest x-ray was obtained since he reported dyspnea. Dyspnea may be due to morbid obesity. Suspect his edema is dependent edema versus right heart failure due to pulmonary hypertension. Lab Data Attestation: I reviewed the patient's lab results. Lab results narrative: White count and H&H are unremarkable. Differential is unremarkable. Basic metabolic panel is unremarkable. UA reveals glucosuria. There is no bacteria noted. Nitrites was negative. Labs: Laboratory Results - last 24 hr 06/08/21 06/08/21 06/08/21 17:40 17:40 18:42 WBC 9.2 RBC 5.40 Hgb 16.2 Hct 49.7 MCV 92.0 MCH 30.0 MCHC 32.6 RDW Std Deviation 50.2 H RDW Coeff of Thao 14.9 H Plt Count 316 MPV 9.1 Immature Gran % (Auto) 0.400 Neut % (Auto) 76.0 H Lymph % (Auto) 7.0 L Ocean % (Auto) 15.8 H Eos % (Auto) 0.4 Baso % (Auto) 0.4 Absolute Neuts (auto) 7.0 Absolute Lymphs (auto) 0.64 L Nucleated RBC % 0 Sodium 140 Potassium 4.0 Chloride 107 Carbon Dioxide 29.0 Anion Gap 4 L BUN 18 Creatinine 0.97 Estim Creat Clear Calc 79.44 Est GFR (MDRD) Af Amer 100 Est GFR (MDRD) Non-Af 82 BUN/Creatinine Ratio 18.5 Glucose 112 H Calcium 12.4 H Urine Color Yellow Urine Clarity Sl. Cloudy Urine pH 7.0 Ur Specific [place] 1.010 Urine Protein Negative Urine Glucose (UA) 1000 H Urine Ketones Negative Urine Occult Blood Negative Urine Nitrite Negative Urine Bilirubin Negative Urine Urobilinogen Normal Ur Leukocyte Esterase 100 H Urine RBC 0 SEEN Urine WBC 5-10 SEEN Ur Squamous Epith Cells 0-5 SEEN Amorphous Sediment 2+ PHOS Urine Bacteria 0 SEEN Urine Mucus 0 SEEN ABG Data ABG results: ABG 06/08/21 18:03 Specimen Type EVELIO VBG pH 7.43 H VBG pO2 32 VBG HCO3 29 H VBG Total CO2 30 VBG O2 Sat (Calc) 63 VBG Base Excess 4 H POC Mix VBG pCO2 Pt Tmp 43.3 O2 Delivery Device Room Air Radiography Chest X-Ray - ED: 2 View (2 view chest x-ray was interpreted by me at 1800 and reveals elevated right hemidiaphragm. There is minimal chronic changes noted cardiac silhouette size unremarkable. Perihilar regions unremarkable. Osseous structures are unremarkable.) Diagnostic Testing: Clinical Impression(s) from Imaging Studies Chest X-Ray 06/08/21 18:10 IMPRESSION: There are no acute findings. Electronically Signed: Jaret Hicks MD at 18:30 EST Reading Location ID and State: [facility] [place] / [place] , Service support , Discharge Plan Triage Chief Complaint: Weakness ED Provider: Reed Wolf Dx/Rx/DC Orders Clinical Impression: Generalized weakness, Pulmonary hypertension, secondary, Lymphedema of both lower extremities, Acute venous stasis dermatitis of both legs, History of obstructive sleep apnea Instructions: ED Peripheral Edema, Bilateral, ED Weakness (Uncertain Cause) Prescriptions: No Action naproxen sodium [Aleve] 220 mg capsule 440 mg PO BID PRN PRN (Reason: Pain) RF: 0 trazodone 50 mg tablet 50 mg PO QHS PRN (Reason: Sleep) RF: 0 (DME) Handicap Placard See Rx Instructions .ROUTE .MEDSUPPLY Qty: 1 RF: 0 furosemide 40 mg tablet 40 mg PO BID RF: 0 Humulin R U-500 (Conc) Kwikpen 500 unit/mL (3 mL) insulin pen See Rx Instructions SC QHS RF: 0 (DME) FreeStyle Tiffanie 2 Ackerman Misc See Rx Instructions .ROUTE .MEDSUPPLY Qty: 1 RF: 0 (DME) FreeStyle Tiffanie 2 Sensor Kit See Rx Instructions .ROUTE .MEDSUPPLY Qty: 2 RF: 6 Trulicity 1.5 mg/0.5 mL pen injector 1.5 mg subcut QWEEK Qty: 2 RF: 3 atorvastatin 40 mg tablet 40 mg PO QHS Qty: 90 RF: 3 (DME) pen needle, diabetic [BD Ultra-Fine Lorie Pen Needle] 32 gauge x 5/32 needle See Rx Instructions .ROUTE .MEDSUPPLY Qty: 360 RF: 5 cholecalciferol (vitamin D3) 1,250 mcg (50,000 unit) capsule 1,250 mcg PO QWEEK Qty: 14 RF: 1 icosapent ethyl [Vascepa] 1 gram capsule 2 g PO BID Qty: 180 RF: 3 paroxetine HCl 40 mg tablet 40 mg PO DAILY Qty: 90 RF: 3 metolazone 2.5 MG tablet 2.5 mg PO SUTH RF: 0 meclizine 12.5 mg Tablet 12.5 mg PO TID PRN PRN (Reason: vertigo) Qty: 0 RF: 0 amoxicillin-pot clavulanate 875-125 mg Tablet 875 mg PO BID 5 Days Qty: 0 RF: 0 albuterol sulfate 90 mcg/actuation HFA aerosol inhaler 2 puff INHALATION Q4H PRN PRN (Reason: Sob &/Or Wheezing) Qty: 18 RF: 6 Jardiance 25 mg tablet 25 mg PO DAILY Qty: 30 RF: 6 furosemide [Lasix] 20 mg tablet 20 mg PO BID Qty: 60 RF: 11 metoprolol succinate 200 mg tablet extended release 24 hr 100 mg PO BID Qty: 90 RF: 3 clopidogrel 75 mg tablet 75 mg PO DAILY Qty: 90 RF: 3 fenofibrate micronized 200 mg capsule 200 mg PO DAILY Qty: 30 RF: 12 (DME) OneTouch Verio test strips Strip See Rx Instructions .ROUTE .MEDSUPPLY Qty: 100 RF: 12 aspirin 81 mg tablet,chewable 81 mg PO DAILY@0800 Qty: 90 RF: 3 amlodipine 10 mg tablet 10 mg PO DAILY Qty: 90 RF: 4 losartan 25 mg tablet 25 mg PO DAILY Qty: 90 RF: 3 metformin 1,000 mg tablet 1,000 mg PO BIDCM Qty: 180 RF: 3 ranolazine 500 mg tablet extended release 12 hr 500 mg PO BID Qty: 180 RF: 3 potassium chloride 20 mEq tablet,ER particles/crystals 40 meq PO TID 90 Days Qty: 540 RF: 1 nitroglycerin 0.4 mg tablet, sublingual 0.4 mg SUBLINGUAL Q5M PRN (Reason: Chest Pain) Qty: 25 RF: 4 Primary Care Provider: Mery Raymond Referrals: Mery Raymond MD [Primary Care Provider] - 3-5 Days if not improving Disposition Disposition: Home, Self Care
[2021-06-08 18:03] LABS: Absolute Lymphocyte Count 0.64 X10^3/uL (0.83-4.51); Basophil# 0.04 X10^3/uL; Basophil% 0.4 % (0-1); Eosinophil# 0.04 X10^3/uL; Eosinophils% 0.4 % (0-5); Hematocrit 49.7 % (40-54); Hemoglobin 16.2 g/dL (13.0-16.5); Lymphocyte # 0.64 X10^3/ul (0.83-4.51); Mean Corp Hgb Conc 32.6 g/dL (32-36); Mean Platelet Vol. 9.1 fl (6.2-12.0); Monocyte# 1.45 X10^3/uL; Monocyte% 15.8 % (0-10); NRBC Flagged by Analyzer 0 % (0-5); Neutrophil # 6.95 X10^3/uL (2.7-7.7); Platelet Count 316 K/mm3 (150-450); RBC Distribution Width CV 14.9 % (11.6-14.6); RBC Distribution Width SD 50.2 fl (35.1-43.9); White Blood Count 9.2 K/mm3 (4.4-11.0)
[2021-06-08 18:10] LABS: Blood Gas Specimen Type VEN; O2 Delivery Device Room Air; VBG BASE EXCESS 4 mmol/L (-1.0-3.5); VBG Bicarbonate 29 mmol/L (22-26); VBG PO2 32 mmHg (25-40); VBG SO2 63 % (50-70); VBG TCO2 30 mmol/L (23-33); VBG pCO2 43.3 mmHg (41-51); VBG pH 7.43 (7.32-7.42)
--- NOTE | 2021-06-08 18:10 | RAD_ITS ---
STUDY: X-RAY CHEST REASON FOR EXAM: Male, 65 years old. CHEST PAIN Dyspnea on exertion and pedal edema TECHNIQUE: XR Chest 2 Views COMPARISON: 2.9.22 FINDINGS: There is no demonstrated pleural abnormality. Normal size heart. Normal mediastinum and sue. Normal visualized pulmonary arteries. There is atherosclerotic calcification of the aortic arch with tortuosity. There are diffuse degenerative changes of the visualized thoracic spine. There is degenerative osteoarthritis of the bilateral shoulders. There is no demonstrated abnormality of the visualized soft tissue structures of the upper abdomen. RAD/Chest PA and Lateral IMPRESSION: There are no acute findings. Electronically Signed: Jaret Hicks MD at 18:30 EST ,
[2021-06-08 18:14] LABS: Anion Gap 4 (5-15); BUN 18 mg/dL (7-18); BUN/Creat Ratio 18.5 RATIO (10-20); Calcium,Total 12.4 mg/dL (8.5-10.1); Chloride 107 mmol/L (98-107); Creatinine, Serum 0.97 mg/dL (0.70-1.30); EST Glomerular Filtration Rate 82 mL/min (>60); Est Glom Filt Rate - Afr Amer 100 mL/min (>60); Estimated Creatinine Clearance 79.44 ml/min; Glucose 112 mg/dL (74-106); Sodium Level 140 mmol/L (136-145)
[2021-06-08 18:46] LABS: Bacteria 0 SEEN /hpf (None Seen); Mucous, Urine 0 SEEN /hpf (<or=2+); Red Blood Cells-Urine 0 SEEN /hpf (0-5)
[2021-06-08 18:48] LABS: Color, Urine Yellow (Yellow); Glucose, Dipstick 1000 mg/dl (Normal); Ketone-Dipstick Negative (Negative); Leukocyte Esterase-Dipstick 100 /ul (Negative); Nitrite-Dipstick Negative (Negative); Occult Blood-Urine Negative /ul (Negative); Protein-Dipstick Negative (Negative); Urine Bilirubin Dipstick Negative (Negative); Urine Clarity Sl. Cloudy (Clear); Urine Urobilinogen Normal (Normal)
[2021-06-08 19:03] LABS: Amorphous Sediment 2+ PHOS; Squamous Epithelial Cells - UA 0-5 SEEN /hpf (0-5); White Blood Cells 5-10 SEEN /hpf (0-5)
[2021-06-08 19:16] VITALS: BP 134/74; PULSE 84; RESP 25; TEMP 37
[2021-06-08 19:41] VITALS: BP 137/84; PULSE 84; RESP 16
== END 2021-06-08 20:37 | disposition home or self-care (01) ==
PROVIDERS: Emergency Provider Emergency Medicine; PCP Internal Medicine; Visit Provider Emergency Medicine
DX: R53.1 Weakness (principal); I11.0 Hypertensive heart disease with heart failure; I27.29 Other secondary pulmonary hypertension; I50.9 Heart failure, unspecified; E11.22 Type 2 diabetes mellitus with diabetic chronic kidney disease; J96.11 Chronic respiratory failure with hypoxia; E66.01 Morbid (severe) obesity due to excess calories; Z68.41 Body mass index [BMI] 40.0-44.9, adult; Z79.4 Long term (current) use of insulin; N18.30 Chronic kidney disease, stage 3 unspecified; I87.2 Venous insufficiency (chronic) (peripheral); I25.10 Atherosclerotic heart disease of native coronary artery without angina pectoris; E78.00 Pure hypercholesterolemia, unspecified; G47.33 Obstructive sleep apnea (adult) (pediatric); M19.90 Unspecified osteoarthritis, unspecified site; Z95.5 Presence of coronary angioplasty implant and graft; Z79.02 Long term (current) use of antithrombotics/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; Z79.82 Long term (current) use of aspirin; Z79.84 Long term (current) use of oral hypoglycemic drugs; Z79.899 Other long term (current) drug therapy; Z86.711 Personal history of pulmonary embolism; Z86.718 Personal history of other venous thrombosis and embolism
CPT/HCPCS: 71046; 80048; 81001; 82803; 85025; 99285; A4216

== ENCOUNTER 2021-06-23 13:30 | Outpatient (CLI) | payer MEDICARE, SELFPAY ==
[2021-05-11 12:06] VITALS: BMI 43.3
--- NOTE | 2021-06-23 13:34 | RAD_ITS ---
STUDY: X-RAY - CERVICAL SPINE REASON FOR EXAM: Male, 65 years old. RADICULOPATHY cervical REGION History: RADICULOPATHY cervical REGION NECK PAIN WHICH RADIATES TOWARD BILAT U.E. TECHNIQUE: XR Spine Cervical 2 or 3 Views COMPARISON: None FINDINGS: Normal anterior atlantoaxial articulation. The odontoid process is obscured by the overlying hard palate on the open mouth view. Therefore, it is not fully evaluated by plain film. There is straightening of the normal cervical lordosis. There is multi-level endplate spondylosis. There is multi-level degenerative disc disease with multilevel disc space narrowing. There is multi-level osseous foraminal stenosis. The soft tissue structures are unremarkable. RAD/Cerv Spine 2 or 3 Views IMPRESSION: There are degenerative changes as noted above. The odontoid process is obscured by the overlying hard palate on the open mouth view. Therefore, it is not fully evaluated by plain film. Electronically Signed: Jaret Hicks MD at 15:10 EDT ,
--- NOTE | 2021-06-23 13:34 | RAD_ITS ---
STUDY: XR Knee 1 or 2 Views 06/23/2021 2:47 PM REASON FOR EXAM: Male, 65 years old. PAIN TECHNIQUE: XR Knee 1 or 2 Views RIGHT COMPARISON: None FINDINGS: Normal visualized distal femur. Normal visualized proximal tibia and fibula. Normal proximal tibiofibular articulation. There is mild degenerative arthrosis of the medial femorotibial compartment. Normal lateral femorotibial compartment. There is moderate degenerative arthrosis of the patellofemoral articulation. There are atherosclerotic calcifications. RAD/Knee 1 or 2 Views IMPRESSION: Degenerative arthrosis. Electronically Signed: Jaret Hicks MD at 14:47 EDT ,
--- NOTE | 2021-06-23 13:34 | RAD_ITS ---
INDICATION: SHOULDER PAIN EXAMINATION/TECHNIQUE: X-RAY - LEFT XR Shoulder Min 2 Views 2 VIEWS COMPARISON: None. FINDINGS: Severe left glenohumeral joint osteoarthritis, which has slightly progressed from 08/20/2018. Mild to moderate acromioclavicular joint degenerative changes. No acute fracture or dislocation. Soft tissues are unremarkable. Visualized lungs are clear. RAD/Shoulder min 2 Views IMPRESSION: Severe left glenohumeral joint osteoarthritis. Otherwise, no acute findings. Electronically Signed: Mian Meehan, at 15:12 EDT ,
--- NOTE | 2021-06-23 13:34 | RAD_ITS ---
INDICATION: SHOULDER PAIN EXAMINATION/TECHNIQUE: X-RAY - RIGHT XR Shoulder Min 2 Views 2 VIEWS COMPARISON: Right shoulder radiograph from 08/20/2018. FINDINGS: Severe right glenohumeral joint osteoarthritis. These degenerative changes have progressed since 2019. Moderate degenerative changes of the right acromioclavicular joint. No acute fracture or dislocation. Soft tissues are unremarkable. Visualized lungs are clear. RAD/Shoulder min 2 Views IMPRESSION: Severe right glenohumeral joint osteoarthritis. No acute findings. Electronically Signed: Mian Meehan, at 15:10 EDT ,
--- NOTE | 2021-06-23 13:34 | RAD_ITS ---
STUDY: XR Knee 1 or 2 Views 06/23/2021 2:46 PM REASON FOR EXAM: Male, 65 years old. PAIN TECHNIQUE: XR Knee 1 or 2 Views LEFT COMPARISON: None FINDINGS: Normal visualized distal femur. Normal visualized proximal tibia and fibula. Normal proximal tibiofibular articulation. There is mild degenerative arthrosis of the medial femorotibial compartment. Normal lateral femorotibial compartment. There is moderate degenerative arthrosis of the patellofemoral articulation. Soft tissue calcifications. Soft tissue swelling along the prepatellar bursa. There are atherosclerotic calcifications. RAD/Knee 1 or 2 Views IMPRESSION: Degenerative arthrosis. Soft tissue swelling along the prepatellar bursa. Electronically Signed: Jaret Hicks MD at 14:47 EDT ,
== END 2021-06-23 23:59 | disposition home or self-care (01) ==
LOC: RAD 13:33
PROVIDERS: PCP Internal Medicine; Referring Provider Anesthesiology Pain Medicine; Visit Provider Anesthesiology Pain Medicine
DX: M47.812 Spondylosis without myelopathy or radiculopathy, cervical region (principal)
CPT/HCPCS: 72040; 73030; 73560

== ENCOUNTER 2021-07-27 00:20 | Observation (INO) | payer MEDICARE, SELFPAY ==
[2021-05-11 12:06] VITALS: BMI 43.3
[2021-07-27] VITALS (9 sets, daily range): BP systolic 132–155; BP diastolic 63–95; PULSE 67–89; RESP 16–22; TEMP 36.3–37.1; O2SAT 93–95; BMI 39.6; BMI 38.6
--- NOTE | 2021-07-27 01:03 | EDS_ITS ---
HPI History of Present Illness Chief Complaint: Lower Extremity Injury Informant: patient Onset/Context/Timing Onset: Today Context: Gradual Onset Timing: Continuous Current Severity: Mild Maximum Severity: Mild Narrative Narrative: 65-year-old male history of diabetes, prior pulmonary emboli and hypertension. States he fell several weeks ago. He lives alone at home. States today he has had discomfort in his joints primarily his hands elbows and knees. He said he began having swelling and now he says it is too uncomfortable to walk. Several months ago he was admitted to the hospital out of work-up and was felt to have vertigo at that time. He was in the hospital several days and was discharged to a local correction for about a week. He denies any vomiting or diarrhea. He denies any fever. He denies any dysuria. Prior similar symptoms: No Recent Illness/Hospitalization: No PFSH PFS Medical History Abnormal chest xray Acquired left ventricular hypertrophy Arthritis Atherosclerosis of coronary artery of [place] heart without angina pectoris Chest discomfort Chronic hypoxemic respiratory failure Chronic pain of both knees Colon cancer screening Debility Diabetes Dyspnea on exertion Epistaxis Essential (primary) hypertension Fatigue Flu vaccine need Health care maintenance History of DVT (deep vein thrombosis) History of pulmonary embolism Hypertension Hypertriglyceridemia Hypoxia Irregular heart beat Morbid obesity with BMI of 40.0-44.9, adult Near syncope Obesity FAVIAN (obstructive sleep apnea) Osteoarthritis Pure hypercholesterolemia Type 2 diabetes mellitus Home Medications naproxen sodium 220 mg capsule 440 mg PO BID PRN PRN 02/08/18 [History Last Taken 10/22/19] albuterol sulfate 90 mcg/actuation aerosol inhaler 2 puff INHALATION Q4H PRN PRN #18 g 04/08/19 [Rx Last Taken 10/22/19] metolazone 2.5 mg PO SUTH 10/22/19 [History Last Taken Unknown] trazodone 50 mg tablet 50 mg PO QHS PRN 01/13/20 [History Last Taken Unknown] Handicap Placard #1 ea 04/08/20 [Rx Last Taken Unknown] empagliflozin 25 mg tablet 25 mg PO DAILY #30 tab 06/11/20 [Rx Last Taken Unknown] furosemide 20 mg tablet 20 mg PO BID #60 tab 08/06/20 [Rx Last Taken Unknown] metoprolol succinate 200 mg tablet,extended release 24 hr 100 mg PO BID #90 tab 08/06/20 [Rx Last Taken Unknown] clopidogrel 75 mg tablet 75 mg PO DAILY #90 tab 10/06/20 [Rx Last Taken Unknown] fenofibrate micronized 200 mg capsule 200 mg PO DAILY #30 cap 11/13/20 [Rx Last Taken Unknown] blood sugar diagnostic #100 ea 11/23/20 [Rx Last Taken Unknown] aspirin 81 mg chewable tablet 81 mg PO DAILY@0800 #90 tab 11/25/20 [Rx Last Taken Unknown] amlodipine 10 mg tablet 10 mg PO DAILY #90 tab 12/18/20 [Rx Last Taken Unknown] losartan 25 mg tablet 25 mg PO DAILY #90 tab 01/12/21 [Rx Last Taken Unknown] metformin 1,000 mg tablet 1,000 mg PO BIDCM #180 tab 01/12/21 [Rx Last Taken Unknown] ranolazine 500 mg tablet,extended release,12 hr 500 mg PO BID #180 tab 02/04/21 [Rx Last Taken Unknown] Trulicity 1.5 mg/0.5 mL subcutaneous pen injector 1.5 mg SUBCUT QWEEK #2 ml NS 02/16/21 [Rx Last Taken Unknown] flash glucose scanning reader #1 ea 02/16/21 [Rx Last Taken Unknown] flash glucose sensor #2 ea 02/16/21 [Rx Last Taken Unknown] pen needle, diabetic 32 gauge x 5/32 #360 ea 02/16/21 [Rx Last Taken Unknown] potassium chloride 20 mEq tablet,extended release(part/cryst) 40 meq PO TID 90 Days #540 tab 03/01/21 [Rx Last Taken Unknown] furosemide 40 mg tablet 40 mg PO BID tab 05/04/21 [History Last Taken Unknown] insulin regular hum U-500 conc See Rx Instructions SC QHS ml 05/04/21 [History Last Taken Unknown] nitroglycerin 0.4 mg sublingual tablet 0.4 mg SUBLINGUAL Q5M PRN #25 tab 05/05/21 [Rx Last Taken Unknown] cholecalciferol (vitamin D3) 1,250 mcg (50,000 unit) capsule 1,250 mcg PO QWEEK #14 cap 05/11/21 [Rx Last Taken Unknown] icosapent ethyl 1 gram capsule 2 g PO BID #180 cap 05/11/21 [Rx Last Taken Unknown] meclizine 12.5 mg PO TID PRN PRN #0 tab 05/21/21 [Rx Last Taken Unknown] atorvastatin 40 mg tablet 40 mg PO QHS #90 tab 07/08/21 [Rx Last Taken Unknown] paroxetine HCl 40 mg tablet 40 mg PO DAILY #90 tab 07/08/21 [Rx Last Taken Unknown] Allergy/AdvReac Type Severity Reaction Status Date / Time No Known Allergies Allergy Verified 07/27/21 00:25 Family History Mother Colon cancer Sister CAD (coronary artery disease) CABG x 5 Diabetes Myocardial infarction, Onset Age: 67 Father Crohns disease Surgical History History of appendectomy 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) History of coronary artery stent placement (05/11/16) History of eye surgery History of hip replacement History of intestinal surgery History of knee surgery History of tonsillectomy and adenoidectomy Social History household members: none housing: apartment other: Hx working in [employer] and [employer]. Smoking Status: Never smoker second hand exposure: Yes alcohol intake: former year quit: 2003 details: Sober since 2003. substance use type: former substance user Date of last use: 04/10/2004 and marijuana caffeine: Yes Type: carbonated beverages Number of servings: 2 and coffee Number of servings: 2 what type of physical activity do you participate in: none ROS ROS ED ROS Narrative Generalized body aches. Review of Systems ROS Unobtainable: Denies due to encephalopathy Constitutional Constitutional ED: Denies chills or fever(s) Eyes Eyes: Denies change in vision ENT ENT ED: Denies ear pain Cardiovascular Cardiovascular: Denies chest pain or palpitations Respiratory/Chest Respiratory/Chest: Denies cough or dyspnea Gastrointestinal Gastrointestinal: Denies abdominal pain, diarrhea, nausea or vomiting Genitourinary Genitourinary ED: Denies dysuria Musculoskeletal Musculoskeletal: Reports arthralgias and myalgias; Denies back pain or neck pain Integumentary Denies rash Neurologic Neurologic: Denies headache(s) Psychiatric Psychiatric: Denies depression Endocrine Endocrinology: Denies polyuria Allergic/Immunologic Allergic/Immunologic ED: Denies urticaria EXAM Physical Exam Narrative Exam Narrative: 65-year-old male no acute distress. Vital signs stable afebrile. Pulse ox 95% on room air no signs of hypoxia. H EENT exam unremarkable. Neck nontender no lymphadenopathy. Lungs clear to auscultation. Heart regular rhythm no murmur. Rate about 80. Abdomen obese but soft nontender normal bowel sounds no peritoneal signs. Moving all 4 extremities. 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 Dorsi plantar flexion intact. He has significant tinea of his feet and nails. Neurological he is awake and alert. He is moving all 4 extremities. Const Vital Signs: 07/27/21 00:21 Temperature 98.5 F Temperature Source Temporal Pulse Rate 81 Respiratory Rate 17 Blood Pressure 155/88 H Blood Pressure Mean 110 Pulse Ox 95 Oxygen Delivery Method Room Air Positive well nourished, well developed and obese; Negative for cachectic, contractures or unkempt General Appearance ED: well developed and NAD; Negative for unkempt, cachectic, contractures, cyanotic, diaphoretic or pallor Nutritional Appearance: obese; Negative for cachectic HEENT Reports moist mucous membranes Negative for trauma or tenderness Eyes PERRL and EOMs intact bilaterally Neck no lymphadenopathy, supple and no JVD General: Negative for tenderness Chest Wall inspection of chest normal and palpation of chest normal Resp normal respiratory effort and clear to auscultation bilaterally Effort and Inspection: Negative for pain with movement Auscultation: Negative for rales, rhonchi or wheezes GI normal to inspection, nondistended, normoactive bowel sounds, non-tender, non- distended and no masses Auscultation: normoactive bowel sounds Palpation: soft; Negative for tender, guarding or rebound tenderness present Back/Spine no CVA tenderness General Back: Negative for CVA tenderness Cervical Spine: Negative for cervical spine tenderness Thoracic Spine / Upper Back: Negative for thoracic spinal tenderness Extremity Negative for normal to inspection Extremity Narrative: Tinea of both feet and nails. General Extremety ED: Negative for edema or tenderness General Extremity: Negative for edema Neuro oriented x3 Sensorium / Orientation: alert; Negative for orientation impaired, lethargic or stuporous Motor Exam: strength 5/5 throughout Psych mental status grossly normal Appearance: Negative for unkempt Attitude: No agitated Mood & Affect: Negative for depressed or tearful Skin no rashes or lesions noted and no wounds General Skin Exam: Negative for jaundice or pallor MDM MDM MDM Narrative Medical decision making narrative: 65-year-old male recent fall at home several weeks ago. States today he has had pains in his hands and lower extremities. States he is unable to walk. Exam is benign. He has more of failure to thrive. Screening labs are being obtained. We will attempt to ambulate the patient. Repeat exam patient is doing well at 2:28 AM. The nurses were able to get him up and ambulate him with a walker. Repeat exam patient is doing okay. I discussed with him discharge to home. He does not feel comfortable being discharged home he lives alone. He would like to be admitted for either physical therapy or evaluation for possible rehab or correction placement. Lab Data Attestation: I reviewed the patient's lab results. Lab results narrative: CBC shows a white count of 13.8. H&H of 15 and 46. Platelets of 312. Electrolytes show a sodium 136. Gap is 7. BUN of 30 creatinine 1.1. Glucose 168. His calcium is elevated 12.7. Looking at prior labs the patient has had numerous elevated white counts in the past. Also his last 3 calcium levels have all been elevated. That will need further evaluation. He does have a history of hypercalcemia in the past. Labs: Laboratory Results - last 24 hr 07/27/21 07/27/21 01:05 01:05 WBC 13.8 H RBC 5.21 Hgb 15.2 Hct 46.4 MCV 89.1 MCH 29.2 MCHC 32.8 RDW Std Deviation 50.2 H RDW Coeff of Thao 15.5 H Plt Count 312 MPV 8.9 Immature Gran % (Auto) 0.500 Neut % (Auto) 86.6 H Lymph % (Auto) 2.7 L Stark % (Auto) 9.8 Eos % (Auto) 0.2 Baso % (Auto) 0.2 Absolute Neuts (auto) 11.9 H Absolute Lymphs (auto) 0.37 L Nucleated RBC % 0 Differential Comment SCANNED Sodium 136 Potassium 4.7 Chloride 106 Carbon Dioxide 23.0 Anion Gap 7 BUN 30 H Creatinine 1.10 Estim Creat Clear Calc 70.05 Est GFR (MDRD) Af Amer 87 Est GFR (MDRD) Non-Af 72 BUN/Creatinine Ratio 27.3 H Glucose 168 H Calcium 12.7 H* Total Bilirubin 1.10 H AST 26 ALT 35 Alkaline Phosphatase 71 Total Protein 7.5 Albumin 3.5 Globulin 4.0 Albumin/Globulin Ratio 0.9 Discharge Plan Triage Chief Complaint: Lower Extremity Injury ED Provider: Lamine Rollins Dx/Rx/DC Orders Clinical Impression: Generalized weakness, Hypercalcemia, Diabetes, Adult failure to thrive Prescriptions: No Action naproxen sodium [Aleve] 220 mg capsule 440 mg PO BID PRN PRN (Reason: Pain) RF: 0 trazodone 50 mg tablet 50 mg PO QHS PRN (Reason: Sleep) RF: 0 (DME) Handicap Placard See Rx Instructions .ROUTE .MEDSUPPLY Qty: 1 RF: 0 furosemide 40 mg tablet 40 mg PO BID RF: 0 Humulin R U-500 (Conc) Kwikpen 500 unit/mL (3 mL) insulin pen See Rx Instructions SC QHS RF: 0 (DME) FreeStyle Tiffanie 2 [place] Misc See Rx Instructions .ROUTE .MEDSUPPLY Qty: 1 RF: 0 (DME) FreeStyle Tiffanie 2 Sensor Kit See Rx Instructions .ROUTE .MEDSUPPLY Qty: 2 RF: 6 Trulicity 1.5 mg/0.5 mL pen injector 1.5 mg subcut QWEEK Qty: 2 RF: 3 (DME) pen needle, diabetic [BD Ultra-Fine Lorie Pen Needle] 32 gauge x 5/32 needle See Rx Instructions .ROUTE .MEDSUPPLY Qty: 360 RF: 5 cholecalciferol (vitamin D3) 1,250 mcg (50,000 unit) capsule 1,250 mcg PO QWEEK Qty: 14 RF: 1 icosapent ethyl [Vascepa] 1 gram capsule 2 g PO BID Qty: 180 RF: 3 atorvastatin 40 mg tablet 40 mg PO QHS Qty: 90 RF: 3 paroxetine HCl 40 mg tablet 40 mg PO DAILY Qty: 90 RF: 3 metolazone 2.5 MG tablet 2.5 mg PO SUTH RF: 0 meclizine 12.5 mg Tablet 12.5 mg PO TID PRN PRN (Reason: vertigo) Qty: 0 RF: 0 albuterol sulfate 90 mcg/actuation HFA aerosol inhaler 2 puff INHALATION Q4H PRN PRN (Reason: Sob &/Or Wheezing) Qty: 18 RF: 6 Jardiance 25 mg tablet 25 mg PO DAILY Qty: 30 RF: 6 furosemide [Lasix] 20 mg tablet 20 mg PO BID Qty: 60 RF: 11 metoprolol succinate 200 mg tablet extended release 24 hr 100 mg PO BID Qty: 90 RF: 3 clopidogrel 75 mg tablet 75 mg PO DAILY Qty: 90 RF: 3 fenofibrate micronized 200 mg capsule 200 mg PO DAILY Qty: 30 RF: 12 (DME) OneTouch Verio test strips Strip See Rx Instructions .ROUTE .MEDSUPPLY Qty: 100 RF: 12 aspirin 81 mg tablet,chewable 81 mg PO DAILY@0800 Qty: 90 RF: 3 amlodipine 10 mg tablet 10 mg PO DAILY Qty: 90 RF: 4 losartan 25 mg tablet 25 mg PO DAILY Qty: 90 RF: 3 metformin 1,000 mg tablet 1,000 mg PO BIDCM Qty: 180 RF: 3 ranolazine 500 mg tablet extended release 12 hr 500 mg PO BID Qty: 180 RF: 3 potassium chloride 20 mEq tablet,ER particles/crystals 40 meq PO TID 90 Days Qty: 540 RF: 1 nitroglycerin 0.4 mg tablet, sublingual 0.4 mg SUBLINGUAL Q5M PRN (Reason: Chest Pain) Qty: 25 RF: 4 Primary Care Provider: Mery Raymond Referrals: Mery Raymond MD [Primary Care Provider] - Disposition Disposition: Acute Care Hospital [facility]
[2021-07-27 01:12] LABS: Absolute Lymphocyte Count 0.37 X10^3/uL (0.83-4.51); Absolute Neutrophil Count 11.9 X10^3/uL (2.0-7.7); Basophil# 0.03 X10^3/uL; Basophil% 0.2 % (0-1); Eosinophil# 0.03 X10^3/uL; Eosinophils% 0.2 % (0-5); Hematocrit 46.4 % (40-54); Hemoglobin 15.2 g/dL (13.0-16.5); Lymphocyte # 0.37 X10^3/ul (0.83-4.51); Lymphocyte % 2.7 % (19-41); Mean Corp Hgb Conc 32.8 g/dL (32-36); Mean Corpuscular Hgb 29.2 pg (27.0-32.0); Mean Corpuscular Volume 89.1 fL (80-94); Mean Platelet Vol. 8.9 fl (6.2-12.0); Monocyte# 1.35 X10^3/uL; Monocyte% 9.8 % (0-10); NRBC Flagged by Analyzer 0 % (0-5); Neutrophil # 11.94 X10^3/uL (2.7-7.7); Neutrophil % 86.6 % (47-70); POSITIVE DIFFERENTIAL YES; Platelet Count 312 K/mm3 (150-450); RBC Distribution Width CV 15.5 % (11.6-14.6); RBC Distribution Width SD 50.2 fl (35.1-43.9); Red Blood Count 5.21 M/mm3 (4.6-6.2); White Blood Count 13.8 K/mm3 (4.4-11.0)
[2021-07-27 01:35] LABS: Differential Indicated SCAN CRITERIA MET
[2021-07-27 01:38] LABS: ALB/GLOB Ratio 0.9 RATIO (0.9-2.4); AST(SGOT) 26 U/L (15-37); Alanine Aminotransfer ALT/SGPT 35 U/L (16-61); Albumin, Serum 3.5 g/dL (3.2-5.0); Alkaline Phosphatase 71 U/L (45-117); Anion Gap 7 (5-15); BUN 30 mg/dL (7-18); BUN/Creat Ratio 27.3 RATIO (10-20); Calcium,Total 12.7 mg/dL (8.5-10.1); Chloride 106 mmol/L (98-107); EST Glomerular Filtration Rate 72 mL/min (>60); Est Glom Filt Rate - Afr Amer 87 mL/min (>60); Estimated Creatinine Clearance 70.05 ml/min; Glucose 168 mg/dL (74-106); Potassium 4.7 mmol/L (3.5-5.1); Protein, Total 7.5 g/dL (6.4-8.2); Sodium Level 136 mmol/L (136-145)
[2021-07-27 01:50] LABS: Differential Comment SCANNED
--- NOTE | 2021-07-27 02:51 | PCM.HP.STD ---
HPI - General General Date of Admission: 07/27/21 HPI Narrative ELIANE KAY, is a 65 M with a significant history of CAD status post stent on Plavix and Lipitor; diabetes mellitus; hypertension; and obesity who presents to the emergency department with a weakness. Patient reports that he is too weak causing him not able to stand and walk. He report that 2 weeks ago he fell. He also reports pain and swelling in all his joints that started on the same day of presentation. Attempts were made to discharge patient at the ED. However patient reported that he lives by himself and is unable to take care of himself. Patient wants to go to rehabilitation. He report that he has previously was admitted to the [facility] for rehabilitation but because he was doing better he was discharged home. He reports a decrease in appetite. He report that he was prescribed vitamin D by his PCP but because he does not drive he was unable to pick it up. [facility] Medical History Abnormal chest xray Acquired left ventricular hypertrophy Arthritis Atherosclerosis of coronary artery of [place] heart without angina pectoris Chest discomfort Chronic hypoxemic respiratory failure Chronic pain of both knees Colon cancer screening Debility Diabetes Dyspnea on exertion Epistaxis Essential (primary) hypertension Fatigue Flu vaccine need Health care maintenance History of DVT (deep vein thrombosis) History of pulmonary embolism Hypertension Hypertriglyceridemia Hypoxia Irregular heart beat Morbid obesity with BMI of 40.0-44.9, adult Near syncope Obesity FAVIAN (obstructive sleep apnea) Osteoarthritis Pure hypercholesterolemia Type 2 diabetes mellitus Home Medications albuterol sulfate 90 mcg/actuation aerosol inhaler 2 puff INHALATION Q4H PRN PRN #18 g 04/08/19 [Rx Last Taken 10/22/19] trazodone 50 mg tablet 50 mg PO QHS PRN 01/13/20 [History Last Taken Unknown] Handicap Placard #1 ea 04/08/20 [Rx Last Taken Unknown] empagliflozin 25 mg tablet 25 mg PO DAILY #30 tab 06/11/20 [Rx Last Taken 07/26/21] metoprolol succinate 200 mg tablet,extended release 24 hr 100 mg PO BID #90 tab 08/06/20 [Rx Last Taken 07/26/21] clopidogrel 75 mg tablet 75 mg PO DAILY #90 tab 10/06/20 [Rx Last Taken 07/26/21] fenofibrate micronized 200 mg capsule 200 mg PO DAILY #30 cap 11/13/20 [Rx Last Taken 07/26/21] blood sugar diagnostic #100 ea 11/23/20 [Rx Last Taken Unknown] aspirin 81 mg chewable tablet 81 mg PO DAILY@0800 #90 tab 11/25/20 [Rx Last Taken 07/26/21] amlodipine 10 mg tablet 10 mg PO DAILY #90 tab 12/18/20 [Rx Last Taken 07/26/21] losartan 25 mg tablet 25 mg PO DAILY #90 tab 01/12/21 [Rx Last Taken 07/26/21] metformin 1,000 mg tablet 1,000 mg PO BIDCM #180 tab 01/12/21 [Rx Last Taken 07/26/21] ranolazine 500 mg tablet,extended release,12 hr 500 mg PO BID #180 tab 02/04/21 [Rx Last Taken 07/26/21] Trulicity 1.5 mg/0.5 mL subcutaneous pen injector 1.5 mg SUBCUT QWEEK #2 ml NS 02/16/21 [Rx Last Taken Unknown] flash glucose scanning reader #1 ea 02/16/21 [Rx Last Taken Unknown] flash glucose sensor #2 ea 02/16/21 [Rx Last Taken Unknown] pen needle, diabetic 32 gauge x 5/32 #360 ea 02/16/21 [Rx Last Taken Unknown] potassium chloride 20 mEq tablet,extended release(part/cryst) 40 meq PO TID 90 Days #540 tab 03/01/21 [Rx Last Taken 07/26/21] furosemide 40 mg tablet 40 mg PO BID tab 05/04/21 [History Last Taken 07/25/21] insulin regular hum U-500 conc See Rx Instructions SC QHS ml 05/04/21 [History Last Taken 07/26/21] nitroglycerin 0.4 mg sublingual tablet 0.4 mg SUBLINGUAL Q5M PRN #25 tab 05/05/21 [Rx Last Taken Unknown] icosapent ethyl 1 gram capsule 2 g PO BID #180 cap 05/11/21 [Rx Last Taken Unknown] meclizine 12.5 mg PO TID PRN PRN #0 tab 05/21/21 [Rx Last Taken Unknown] atorvastatin 40 mg tablet 40 mg PO QHS #90 tab 07/08/21 [Rx Last Taken 07/26/21] paroxetine HCl 40 mg tablet 40 mg PO DAILY #90 tab 07/08/21 [Rx Last Taken 07/26/21] Allergy/AdvReac Type Severity Reaction Status Date / Time No Known Allergies Allergy Verified 07/27/21 00:25 Family History Mother Colon cancer Sister CAD (coronary artery disease) CABG x 5 Diabetes Myocardial infarction, Onset Age: 67 Father Crohns disease Surgical History History of appendectomy 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) History of coronary artery stent placement (05/11/16) History of eye surgery History of hip replacement History of intestinal surgery History of knee surgery History of tonsillectomy and adenoidectomy Social History household members: none housing: apartment other: Hx working in [email or web address] and [employer]. Smoking Status: Never smoker second hand exposure: Yes alcohol intake: former year quit: 2003 details: Sober since 2003. substance use type: former substance user Date of last use: 04/10/2004 and marijuana caffeine: Yes Type: carbonated beverages Number of servings: 2 and coffee Number of servings: 2 what type of physical activity do you participate in: none ROS ROS Narrative Pertinent positives and pertinent negatives as noted in HPI. All other systems were reviewed and are negative. Vital Signs Vital Signs Vital Signs: 07/27/21 00:21 Temperature 98.5 F Temperature Source Temporal Pulse Rate 81 Respiratory Rate 17 Blood Pressure 155/88 H Blood Pressure Mean 110 Pulse Ox 95 Oxygen Delivery Method Room Air Weight Weight: 125.4 kg Body Mass Index (BMI) 39.6 Physical Exam Narrative Physical exam: General: Well-nourished, well-developed. Head: Normocephalic, atraumatic, no tenderness Eyes: Vision is grossly intact. EOMI ENT, no trauma, dry mucous membranes, no rhinorrhea Neck: Nontender, full range of motion, no spinal tenderness, deformities, step-off CVS: Regular rate and rhythm. S1-S2 present. No murmur, gallop or rub. Respiratory : clear to auscultation bilaterally, chest wall nontender, no wheezing Abdomen: Soft, nontender, nondistended, normal bowel sounds, no masses : Deferred Back: Nontender, no CVA tenderness, no midline spinal tenderness, deformities, step-offs Extremities: Nodular deformity of multiple joints of bilateral fingers. No trauma Skin: Normal color, no trauma, abrasions Neuro: Alert, oriented, cranial nerves II through XII grossly intact. Psychiatry: Normal mood. Normal affect. Not depressed. Not anxious. Results Lab / Micro Data Result Diagrams: 07/27/21 01:05 07/27/21 01:05 Labs: Laboratory Results - last 24 hr 07/27/21 01:05: WBC 13.8 H, RBC 5.21, Hgb 15.2, Hct 46.4, MCV 89.1, MCH 29.2, MCHC 32.8, RDW Std Deviation 50.2 H, RDW Coeff of Thao 15.5 H, Plt Count 312, MPV 8.9, Immature Gran % (Auto) 0.500, Neut % (Auto) 86.6 H, Lymph % (Auto) 2.7 L, [place] % (Auto) 9.8, Eos % (Auto) 0.2, Baso % (Auto) 0.2, Absolute Neuts (auto) 11.9 H, Absolute Lymphs (auto) 0.37 L, Nucleated RBC % 0, Differential Comment SCANNED 07/27/21 01:05: Sodium 136, Potassium 4.7, Chloride 106, Carbon Dioxide 23.0, Anion Gap 7, BUN 30 H, Creatinine 1.10, Estim Creat Clear Calc 70.05, Est GFR (MDRD) Af Amer 87, Est GFR (MDRD) Non-Af 72, BUN/Creatinine Ratio 27.3 H, Glucose 168 H, Calcium 12.7 H*, Total Bilirubin 1.10 H, AST 26, ALT 35, Alkaline Phosphatase 71, Total Protein 7.5, Albumin 3.5, Globulin 4.0, Albumin/Globulin Ratio 0.9 Assessment & Plan Assessment/Plan (1) Debility: (2) Hypercalcemia: PLAN: Debility PT noted to work with patient for strengthening balance training Case management consult for disposition Received [place] for pain at emergency department. Tylenol as needed ordered. Acute on chronic Hypercalcemia Records reviewed from patient's outpatient visit with Specialist: Patient saw horse trainer Dr. Urias on 05/11/2021. It was recommended that he takes his vitamin D that was prescribed by PCP. Of notes vitamin D level on 04/28/2019 was 8.7. Intact parathyroid hormone on 05/11/2021 was elevated at 207.1 Per horse trainer vitamin D level is low leading to high PTH and hypercalcemia. Patient report that he has not taking his prescribed vitamin D since he does not have transportation to hot die picker his medication. While inpatient we will order vitamin D prescribed by PCP. Acute component of hypercalcemia likely from dehydration. Patient has dry mucous membranes and report that he is having poor intake. Normal saline IV hydration ordered. Home Lasix held. Hold home potassium supplementation. Diabetes mellitus Patient with hyperglycemia on presentation Hold home metformin. Continue Jardiance. On high dose of U500 for meals. Reportedly takes between 60 to 80 units 3 times daily for mL. Report that last insulin taken before presentation was 60 units and skipped about 2 doses of insulin before presentation. Will de-escalate prandial insulin. Accu-Chek QA CHS with correction scale insulin ordered. Hyperbilirubinemia Total bili of 1.10. Review of record showed that it is acute. Trend CMP Leukocytosis Review of CBC showed white count of 13.8 with neutrophilia and lymphopenia. Likely reactive/dehydration. Trend CBC. Hypertension Blood pressure is not within goal Losartan and metoprolol continued. As needed hydralazine ordered. Trend blood pressure and adjust blood pressure medications. DVT prophylaxis Subcutaneous Lovenox ordered. Charges/Coding Visit Charges OBSV E&M: 33969 Initial observation care L3
[2021-07-27] MEDS: HYDROcodone Bitartrate/Apap 5/325 Tablet PO (03:29)
[2021-07-27] MEDS: 0.9% Normal Saline 1,000 ML 100 ML IV ×2 (04:12→14:42)
[2021-07-27 06:08] LABS: Absolute Lymphocyte Count 0.39 X10^3/uL (0.83-4.51); Absolute Neutrophil Count 10.9 X10^3/uL (2.0-7.7); Basophil# 0.01 X10^3/uL; Basophil% 0.1 % (0-1); Eosinophil# 0.03 X10^3/uL; Eosinophils% 0.2 % (0-5); Hematocrit 43.5 % (40-54); Hemoglobin 14.1 g/dL (13.0-16.5); Lymphocyte # 0.39 X10^3/ul (0.83-4.51); Lymphocyte % 3.1 % (19-41); Mean Corp Hgb Conc 32.4 g/dL (32-36); Mean Corpuscular Volume 89.5 fL (80-94); Mean Platelet Vol. 9.4 fl (6.2-12.0); Monocyte# 1.32 X10^3/uL; Monocyte% 10.4 % (0-10); NRBC Flagged by Analyzer 0 % (0-5); Neutrophil # 10.86 X10^3/uL (2.7-7.7); Neutrophil % 85.4 % (47-70); POSITIVE DIFFERENTIAL YES; Platelet Count 299 K/mm3 (150-450); RBC Distribution Width CV 15.4 % (11.6-14.6); RBC Distribution Width SD 50.6 fl (35.1-43.9); Red Blood Count 4.86 M/mm3 (4.6-6.2); White Blood Count 12.7 K/mm3 (4.4-11.0)
[2021-07-27 06:20] LABS: Differential Indicated SCAN CRITERIA MET
[2021-07-27 06:39] LABS: Differential Comment SCANNED
[2021-07-27 06:45] LABS: ALB/GLOB Ratio 0.9 RATIO (0.9-2.4); AST(SGOT) 15 U/L (15-37); Alanine Aminotransfer ALT/SGPT 31 U/L (16-61); Albumin, Serum 3.3 g/dL (3.2-5.0); Alkaline Phosphatase 67 U/L (45-117); Anion Gap 9 (5-15); BUN 28 mg/dL (7-18); BUN/Creat Ratio 28.8 RATIO (10-20); Calcium,Total 12.1 mg/dL (8.5-10.1); Chloride 105 mmol/L (98-107); Creatinine, Serum 0.97 mg/dL (0.70-1.30); EST Glomerular Filtration Rate 82 mL/min (>60); Est Glom Filt Rate - Afr Amer 100 mL/min (>60); Estimated Creatinine Clearance 79.44 ml/min; Globulin 3.8 g/dL (2.2-4.2); Glucose 159 mg/dL (74-106); Potassium 4.2 mmol/L (3.5-5.1); Protein, Total 7.1 g/dL (6.4-8.2); Sodium Level 138 mmol/L (136-145)
--- NOTE | 2021-07-27 07:12 | PN.HOSP_ITS ---
Subjective Subjective Patient history yesterday also had interscapular pain with mild shortness of breath on walking/exertion. First troponin is negative. Patient is admitted mainly with pain and discomfort in the joints, elbows and knees and cannot take care of himself. He is not able to take care of himself and into his usual house chores. He lost about 30 pounds in last 3 months on Lasix 60 mg twice daily. Calcium is high. Objective Data Objective Data Vital Signs: Vital Signs Temp Pulse Resp BP Pulse Ox 98.8 F 84 18 134/63 H 94 07/27/21 04:00 07/27/21 04:00 07/27/21 04:00 07/27/21 04:00 07/27/21 04:00 Oxygen Delivery Method Room Air Weight: 269 lb 13.533 oz Body Mass Index (BMI) 38.6 Intake & Output: Intake and Output for Last 24 Hours 07/25/21 07/26/21 07/27/21 23:59 23:59 23:59 Intake Total 400 / 400 Output Total 1000 / 1000 Balance -600 / -600 Lab / Micro Data Result Diagrams: 07/27/21 03:37 07/27/21 03:37 Labs: Laboratory Results - last 24 hr 07/27/21 01:05: WBC 13.8 H, RBC 5.21, Hgb 15.2, Hct 46.4, MCV 89.1, MCH 29.2, MCHC 32.8, RDW Std Deviation 50.2 H, RDW Coeff of Thao 15.5 H, Plt Count 312, MPV 8.9, Immature Gran % (Auto) 0.500, Neut % (Auto) 86.6 H, Lymph % (Auto) 2.7 L, [place] % (Auto) 9.8, Eos % (Auto) 0.2, Baso % (Auto) 0.2, Absolute Neuts (auto) 11.9 H, Absolute Lymphs (auto) 0.37 L, Nucleated RBC % 0, Differential Comment SCANNED 07/27/21 01:05: Sodium 136, Potassium 4.7, Chloride 106, Carbon Dioxide 23.0, Anion Gap 7, BUN 30 H, Creatinine 1.10, Estim Creat Clear Calc 70.05, Est GFR (MDRD) Af Amer 87, Est GFR (MDRD) Non-Af 72, BUN/Creatinine Ratio 27.3 H, Glucose 168 H, Calcium 12.7 H*, Total Bilirubin 1.10 H, AST 26, ALT 35, Alkaline Phosphatase 71, Total Protein 7.5, Albumin 3.5, Globulin 4.0, Albumin/Globulin Ratio 0.9 07/27/21 03:37: WBC 12.7 H, RBC 4.86, Hgb 14.1, Hct 43.5, MCV 89.5, MCH 29.0, MCHC 32.4, RDW Std Deviation 50.6 H, RDW Coeff of Thao 15.4 H, Plt Count 299, MPV 9.4, Immature Gran % (Auto) 0.800, Neut % (Auto) 85.4 H, Lymph % (Auto) 3.1 L, [place] % (Auto) 10.4 H, Eos % (Auto) 0.2, Baso % (Auto) 0.1, Absolute Neuts (auto) 10.9 H, Absolute Lymphs (auto) 0.39 L, Nucleated RBC % 0, Differential Comment SCANNED 07/27/21 03:37: Sodium 138, Potassium 4.2, Chloride 105, Carbon Dioxide 24.0, Anion Gap 9, BUN 28 H, Creatinine 0.97, Estim Creat Clear Calc 79.44, Est GFR (MDRD) Af Amer 100, Est GFR (MDRD) Non-Af 82, BUN/Creatinine Ratio 28.8 H, Glucose 159 H, Calcium 12.1 H, Total Bilirubin 1.00, AST 15, ALT 31, Alkaline Phosphatase 67, Total Protein 7.1, Albumin 3.3, Globulin 3.8, Albumin/Globulin Ratio 0.9 Physical Exam Narrative General: Alert, Oriented x3, Cooperative. Generalized fatigue HEENT: Atraumatic, PERRLA, EOMI, Normocephalic Oral: No Gingival or Mucosal Lesions/ Ulcerations Neck: Supple, No JVD, Negative Carotid Bruits Lungs: Air entry diminished in bilateral lung bases. No crepitation/rhonchi Cardiovascular: Regular rate, Regular Rhythm, Normal S1, Normal S2, systolic murmur LLSB Abdomen: Bowel Sounds Present, Soft, Non Tender, Non-Distended : No renal angle tenderness. No suprapubic tenderness. Extremities: Bilateral lower leg edema, Capillary Refill Less than 3 Seconds Skin: No rashes, No breakdown Musculoskeletal: No Tenderness to Palpation of Joints or Extremities. Range of motion decreased/limited Neurological: Cranial nerves II-XII grossly intact, DTR 2+/4 and Symmetrical, Neuro grossly intact Psych/Mental Status: Flat affect Assessment & Plan Assessment/Plan (1) Debility: (2) Hypercalcemia: PLAN: Chronic HFpEF and right ventricular failure with history of single- vessel coronary artery disease status post stent placement on admission: Patient had cardiac cath in May [address] Gracia. Prior to this in 2014 patient had right heart and left heart cath which showed right ventricular elevated 49/6, PA mean 32 mmHg, mean PCWP 21. Consistent with moderate pulmonary hypertension with moderate to severe left ventricular end-diastolic indicating diastolic dysfunction/chronic HFpEF. Echo in November 2018 reported RVSP 31 mmHg, mild MR, LA moderately enlarged, moderately dilated RV. Although last echo in May 2021 shows EF 60% with normal left atrium normal RV size and systolic function. I think this is subjective variation and reported in echo but patient has generalized leg swelling with history of chronic HFpEF and right ventricular heart failure. Currently Lasix is on hold due to hyperglycemia Acute on chronic Hypercalcemia, most likely due to vitamin D deficiency not adherent with vitamin D and Lasix. Patient saw glass cleaning machine tender Dr. Urias on 05/11/2021. It was recommended that he takes his vitamin D that was prescribed by PCP. Of notes vitamin D level on 04/28/2019 was 8.7. Intact parathyroid hormone on 05/11/2021 was elevated at 207.1 most likely due to vitamin D deficiency Per glass cleaning machine tender vitamin D level is low leading to high PTH and hypercalcemia. Diabetes mellitus type II with hyperglycemia. Metformin on hold. Continue Jardiance. On high dose of U500 for meals. Reportedly takes between 60 to 80 units 3 times daily for mL. Report that last insulin taken before presentation was 60 units and skipped about 2 doses of insulin before presentation. Will de-escalate prandial insulin. Accu-Chek QA [facility] with correction scale insulin ordered. Hyperbilirubinemia Total bili of 1.10. Review of record showed that it is acute. Trend CMP Leukocytosis Review of CBC showed white count of 13.8 with neutrophilia and lymphopenia. Likely reactive/dehydration. Trend CBC. Hypertension, elevated. Losartan and metoprolol continued. As needed hydralazine ordered. DVT prophylaxis Subcutaneous Lovenox ordered. Charges/Coding Visit Charges Inpatient E&M: 35714 Subs Hosp L2
[2021-07-27] MEDS: Insulin Lispro 100 UNIT/ML INSULN.PEN 20 UNIT SC ×3 (08:09→16:54)
[2021-07-27] MEDS: Insulin Lispro 100 UNIT/ML INSULN.PEN SC ×3 (08:10→16:54)
[2021-07-27] MEDS: Aspirin 81 MG TAB.CHEW PO (08:14)
[2021-07-27 08:21] LABS: Bedside Glucose 161 mg/dL (74-106)
[2021-07-27] MEDS: Metoprolol(XL)Succ 100 MG Tablet PO ×2 (09:31→21:23)
[2021-07-27] MEDS: Ranolazine 500 MG Tablet PO ×2 (09:31→21:22)
[2021-07-27] MEDS: Fenofibrate 145 MG Tablet PO (09:31)
[2021-07-27] MEDS: amLODIPine 10 MG Tablet PO (09:31)
[2021-07-27] MEDS: Clopidogrel Bisulfate 75 MG Tablet PO (09:31)
[2021-07-27] MEDS: Losartan Potassium 25 MG Tablet PO (09:31)
[2021-07-27] MEDS: Empagliflozin 25 MG Tablet PO (09:31)
[2021-07-27] MEDS: Enoxaparin 40 MG/0.4 ML Syringe SC (09:31)
[2021-07-27] MEDS: Paroxetine 20 MG Tablet 40 MG PO (09:31)
[2021-07-27] MEDS: Ergocalciferol 1.25 MG (50, 000 UNIT) Capsule PO (09:31)
[2021-07-27] MEDS: Acetaminophen 325 MG Tablet 650 MG PO (09:32)
--- NOTE | 2021-07-27 11:40 | CASEMGMT ---
Addendum entered by Priya Dubon 07/27/21 14:10: Pt had also told this SW that he would be interested in Emergency Response Button information. SW received message from Michelle at [facility] stating they can accept pt and will submit for pre-cert. Plan: [facility] pending pre-cert Original Note: Social Work Assessment Referral Date: 07/27/2021 Date of Assessment: 07/27/2021 Reason for consult: SNF placement Informant: GLORIA PIZANO Personal Status: SW met with pt to complete initial assessment. Pt is alert and orientated x3. Pt able to participate in assessment and engaged appropriately. Living Arrangements: Pt states he lives alone in a one story home. Pt states he has eight steps to get to his house. Pt states he has railings by the steps. PCP: Dr. Mery Raymond Pharmacy: Pt states he uses two pharmacies. 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 ADLs: Pt states he was previously independent with ADLs. Pt states that on Monday he was doing chores around the house without a walker and then yesterday his joints started to swell and he lost his strength. Transportation: Pt states that up until three months ago he was driving himself. Pt states that his nephew will now sometimes provide transportation. DME: Cane, Walker, [place] Seat, Sock Assist, Grabber, [place] [place] HHC: [facility] for PT/OT SNF: [facility] Mental Health Hx: Pt states that he has history of depression. Pt states that he currently takes Paroxetine. Pt states that he used to see a counselor/therapist but is has been 3-4 years since he has seen a therapist/counselor. Pt states that he feels that his depression is currently well managed when he is on his medications. Pt states that sometimes [facility] not have [facility] medication so then he has to get them through [facility]. Pt states that in the early 1999s-2001 pt states that he had homicidal and suicidal thoughts. Pt states that he went to a gun store but never purchased a gun. Pt states that someone was messing with his girlfriend at the time and stated I was going to knock him out and then knock myself out. Pt states he has never had serious suicidal thoughts/plans/ideations. Pt states he never attempted suicide. Pt denied any recent suicidal/homicidal thoughts/plans/ideations. Pt denied any current suicidal/homicidal thoughts/plans/ideations. Pt states that he does have a shot gun at home but it is dissembled. Pt states it was a family heirloom that got passed down. Pt states that he has access to his medications but states he takes them as prescribed. Pt denied any other lethal means in his home. SW offered to provide pt with counseling resources and pt denied. Pt denied any current suicidal/homicidal thoughts/plans/ideations. Discharge Plans: SW spoke with pt regarding discharge plans. Pt states that he was able to get up with two assist to the bathroom and chair. Patient was provided a list of SNF providers including quality and resource use data and consistent with the patient?s preferred geographic region, medical needs, and insurance network. Pt agreeable to going to SNF and preferred provider is [facility]. SW informed pt that this worker will send referral and that pt will again need pre-cert. Pt states understanding. SW placed a call to Michelle at [facility] and left message regarding referral. SW faxed referral to [facility]. Plan: [facility] pending acceptance and pre-cert Priya Dubon STAIN SPRAYER, ELECTRONIC ENGINEERING TECHNICIAN
[2021-07-27 11:56] LABS: Bedside Glucose 168 mg/dL (74-106)
[2021-07-27] MEDS: oxyCODONE 5 MG Tablet PO ×2 (12:52→23:31)
--- NOTE | 2021-07-27 14:37 | CASEMGMT ---
Social Work Note SW updated pt that [facility] is able to accept pt pending pre-cert. SW also provided pt with Medical Alert System information. Pt states understanding. SW continued discussion of pt's past Mental Health. SW asked pt what stopped him from attempting suicide/homicide. Pt states was just all talk, no action. Pt states I'm not a killer. SW asked pt if he was yazidism at all. Pt states little bit. Pt states he used to date a preacher's daughter. SW asked pt about his coping skills. Pt states that he likes to fish and do Martial Arts. SW informed pt that this worker will let him know when pre-cert is obtained. Pt states understanding. SW completed PAS/RR. SW placed Green Sheet, transport forms, COVID tool, PAS/RR and PAS/RR results on pt's chart in the event pre-cert is obtained. Plan: [facility] pending pre-cert Priya Dubon HAND I BLOCKER, RAT EXTERMINATOR
--- NOTE | 2021-07-27 14:47 | CASEMGMT ---
CLARITA CM in to discuss MONTES form with patient. RN CM explained MONTES form, patient voiced understanding. Pt signed form and filed in chart. Pt provided with a copy of signed MONTES form. Patient had no further questions or concerns at this time.
[2021-07-27 15:24] LABS: Troponin-I HS 18 pg/mL (3.0-78.0)
[2021-07-27 16:44] LABS: Troponin-I HS 16 pg/mL (3.0-78.0)
[2021-07-27] MEDS: 0.9% Normal Saline 1,000 ML 75 ML IV (16:57)
[2021-07-27 17:01] LABS: Bedside Glucose 157 mg/dL (74-106)
[2021-07-27] MEDS: Atorvastatin Calcium 40 MG Tablet PO (21:22)
[2021-07-27 21:35] LABS: Bedside Glucose 144 mg/dL (74-106)
[2021-07-28] VITALS (16 sets, daily range): BP systolic 127–143; BP diastolic 66–86; PULSE 61–75; RESP 12–26; TEMP 36.5–36.8; O2SAT 91–96
[2021-07-28] MEDS: 0.9% Normal Saline 1,000 ML 75 ML IV ×2 (01:30→17:04)
[2021-07-28] MEDS: oxyCODONE 5 MG Tablet PO ×3 (05:32→21:27)
[2021-07-28] MEDS: Acetaminophen 325 MG Tablet 650 MG PO ×3 (05:33→21:27)
[2021-07-28 06:49] LABS: Anion Gap 8 (5-15); BUN 26 mg/dL (7-18); Calcium,Total 11.9 mg/dL (8.5-10.1); Chloride 108 mmol/L (98-107); Creatinine, Serum 0.93 mg/dL (0.70-1.30); EST Glomerular Filtration Rate 87 mL/min (>60); Est Glom Filt Rate - Afr Amer 105 mL/min (>60); Estimated Creatinine Clearance 82.86 ml/min; Glucose 169 mg/dL (74-106); Magnesium 2.8 mg/dL (1.6-2.6); Phosphorus 1.9 mg/dL (2.5-4.9); Potassium 3.8 mmol/L (3.5-5.1); Sodium Level 138 mmol/L (136-145)
[2021-07-28 08:01] LABS: Bedside Glucose 165 mg/dL (74-106)
[2021-07-28] MEDS: Aspirin 81 MG TAB.CHEW PO (08:02)
[2021-07-28] MEDS: Insulin Lispro 100 UNIT/ML INSULN.PEN SC ×3 (08:02→21:29)
[2021-07-28] MEDS: Menthol/Lanolin/Calamine/Znox 113 GM Tube 1 APPLIC TOPICAL ×2 (08:03→21:29)
[2021-07-28] MEDS: Insulin Lispro 100 UNIT/ML INSULN.PEN 20 UNIT SC ×3 (08:03→17:05)
[2021-07-28] MEDS: Nystatin Powder 15gm Bottle 1 APPLIC TOPICAL ×2 (08:04→21:29)
[2021-07-28] MEDS: Clopidogrel Bisulfate 75 MG Tablet PO (08:16)
[2021-07-28] MEDS: amLODIPine 10 MG Tablet PO (08:17)
[2021-07-28] MEDS: Fenofibrate 145 MG Tablet PO (08:17)
[2021-07-28] MEDS: Metoprolol(XL)Succ 100 MG Tablet PO ×2 (08:17→21:26)
[2021-07-28] MEDS: Paroxetine 20 MG Tablet 40 MG PO (08:17)
[2021-07-28] MEDS: Ranolazine 500 MG Tablet PO ×2 (08:17→21:27)
[2021-07-28] MEDS: Losartan Potassium 25 MG Tablet PO (08:18)
[2021-07-28] MEDS: Empagliflozin 25 MG Tablet PO (08:18)
[2021-07-28] MEDS: Furosemide 40 MG/4 ML Vial IV (08:21)
--- NOTE | 2021-07-28 10:29 | PCM.PN.HOSP ---
Subjective Subjective Patient does not have significant leg swelling. He feels stuffy nose after using CPAP. Objective Data Objective Data Vital Signs: Vital Signs Temp Pulse Resp BP Pulse Ox 97.9 F 70 16 137/86 H 95 07/28/21 08:00 07/28/21 08:17 07/28/21 08:00 07/28/21 08:00 07/28/21 08:00 Oxygen Delivery Method Room Air Weight: 269 lb 13.533 oz Body Mass Index (BMI) 38.6 Intake & Output: Intake and Output for Last 24 Hours 07/26/21 07/27/21 07/28/21 23:59 23:59 23:59 Intake Total 2400 / 2800 1441.25 / 1441.25 Output Total 1000 / 2100 1100 / 1100 Balance 1400 / 700 341.25 / 341.25 Lab / Micro Data Result Diagrams: 07/27/21 03:37 07/28/21 05:57 Labs: Laboratory Results - last 24 hr 07/27/21 11:50: POC Glucose 168 H 07/27/21 14:28: Troponin I High Sens 18 07/27/21 16:05: Troponin I High Sens 16 07/27/21 16:51: POC Glucose 157 H 07/27/21 21:21: POC Glucose 144 H 07/28/21 05:57: Sodium 138, Potassium 3.8, Chloride 108 H, Carbon Dioxide 22.0, Anion Gap 8, BUN 26 H, Creatinine 0.93, Estim Creat Clear Calc 82.86, Est GFR (MDRD) Af Amer 105, Est GFR (MDRD) Non-Af 87, BUN/Creatinine Ratio 28.0 H, Glucose 169 H, Calcium 11.9 H, Phosphorus 1.9 L, Magnesium 2.8 H 07/28/21 07:57: POC Glucose 165 H Physical Exam Narrative General: Alert, Oriented x3, Cooperative. Fatigue is better HEENT: Atraumatic, PERRLA, EOMI, Normocephalic Oral: No Gingival or Mucosal Lesions/ Ulcerations Neck: Supple, No JVD, Negative Carotid Bruits Lungs: Air entry diminished in bilateral lung bases. No crepitation/rhonchi Cardiovascular: Regular rate, Regular Rhythm, Normal S1, Normal S2, systolic murmur LLSB Abdomen: Bowel Sounds Present, Soft, Non Tender, Non-Distended : No renal angle tenderness. No suprapubic tenderness. Extremities: Bilateral lower leg edema, mild. Capillary Refill Less than 3 Seconds Skin: No rashes, No breakdown Musculoskeletal: No Tenderness to Palpation of Joints or Extremities. Range of motion decreased/limited Neurological: Cranial nerves II-XII grossly intact, DTR 2+/4 and Symmetrical, Neuro grossly intact Psych/Mental Status: Flat affect Assessment & Plan Assessment/Plan (1) Debility: (2) Hypercalcemia: PLAN: Chronic HFpEF and right ventricular failure with history of single-vessel coronary artery disease status post stent placement on admission: Patient had cardiac cath in May [address] Gracia. Prior to this in 2014 patient had right heart and left heart cath which showed right ventricular elevated 49/6, PA mean 32 mmHg, mean PCWP 21. Consistent with moderate pulmonary hypertension with moderate to severe left ventricular end-diastolic indicating diastolic dysfunction/chronic HFpEF. Echo in November 2018 reported RVSP 31 mmHg, mild MR, LA moderately enlarged, moderately dilated RV. Although last echo in May 2021 shows EF 60% with normal left atrium normal RV size and systolic function. I think this is subjective variation and reported in echo but patient has generalized leg swelling with history of chronic HFpEF and right ventricular heart failure. Currently Lasix is on hold due to hyperglycemia 07/28: Patient getting IV fluid. Furosemide 40 mg IV 1 dose ordered to augment saline diuresis for hypercalcemia. Lungs clear. No features of acute heart failure. Acute on chronic Hypercalcemia, most likely due to vitamin D deficiency not adherent with vitamin D and Lasix. Patient saw livestock showman Dr. Urias on 05/11/2021. It was recommended that he takes his vitamin D that was prescribed by PCP. Of notes vitamin D level on 04/28/2019 was 8.7. Intact parathyroid hormone on 05/11/2021 was elevated at 207.1 most likely due to vitamin D deficiency Per livestock showman vitamin D level is low leading to high PTH and hypercalcemia. 07/28: Calcium 11.9 g%. Continue IV fluid normal saline. Hypophosphatemia. Probably related to hypercalcemia. On Neutra-Phos. Diabetes mellitus type II with hyperglycemia. Metformin on hold. Continue Jardiance. On high dose of U500 for meals. Reportedly takes between 60 to 80 units 3 times daily for mL. Report that last insulin taken before presentation was 60 units and skipped about 2 doses of insulin before presentation. Will de-escalate prandial insulin. Accu-Chek QA CHS with correction scale insulin ordered. Hyperbilirubinemia Total bili of 1.10. Review of record showed that it is acute. Trend CMP Leukocytosis Review of CBC showed white count of 13.8 with neutrophilia and lymphopenia. Likely reactive/dehydration. Trend CBC. Hypertension, elevated. Losartan and metoprolol continued. As needed hydralazine ordered. DVT prophylaxis Subcutaneous Lovenox ordered. Charges/Coding Visit Charges Inpatient E&M: 46838 Subs Hosp L2
[2021-07-28] MEDS: Enoxaparin 40 MG/0.4 ML Syringe SC (11:23)
[2021-07-28] MEDS: Na Biphos/Potassium Phosphate PACKET 1 PACKET PO ×3 (11:29→21:26)
[2021-07-28 11:36] LABS: Bedside Glucose 187 mg/dL (74-106)
--- NOTE | 2021-07-28 12:26 | CASEMGMT ---
Addendum entered by Priya Dubon 07/28/21 15:43: GLORIA placed a call to [facility] and spoke with Teri. Pre-cert is still pending. Original Note: Social Work Note SW placed a call to Michelle at [facility] and left message for update on pt's pre-cert. Plan: [facility] pending pre-cert Priya Dubon FILEMAKER DEVELOPER, BANKRUPTCY PROCESSOR
[2021-07-28 15:35] LABS: Anion Gap 3 (5-15); BUN 28 mg/dL (7-18); BUN/Creat Ratio 25.2 RATIO (10-20); Calcium,Total 11.8 mg/dL (8.5-10.1); Chloride 107 mmol/L (98-107); Creatinine, Serum 1.11 mg/dL (0.70-1.30); EST Glomerular Filtration Rate 71 mL/min (>60); Est Glom Filt Rate - Afr Amer 86 mL/min (>60); Estimated Creatinine Clearance 69.42 ml/min; Glucose 147 mg/dL (74-106); Potassium 3.7 mmol/L (3.5-5.1); Sodium Level 140 mmol/L (136-145)
[2021-07-28 17:05] LABS: Bedside Glucose 142 mg/dL (74-106)
[2021-07-28 21:26] LABS: Bedside Glucose 160 mg/dL (74-106)
[2021-07-28] MEDS: Atorvastatin Calcium 40 MG Tablet PO (21:26)
[2021-07-28] MEDS: traZODone 50 MG Tablet PO (21:27)
[2021-07-29] VITALS (14 sets, daily range): BP systolic 142–150; BP diastolic 70–86; PULSE 53–66; RESP 12–21; TEMP 36.2–36.7; O2SAT 93–96
[2021-07-29 04:55] LABS: Anion Gap 5 (5-15); BUN 28 mg/dL (7-18); Calcium,Total 11.5 mg/dL (8.5-10.1); Chloride 109 mmol/L (98-107); Creatinine, Serum 0.87 mg/dL (0.70-1.30); EST Glomerular Filtration Rate 93 mL/min (>60); Est Glom Filt Rate - Afr Amer 113 mL/min (>60); Estimated Creatinine Clearance 88.57 ml/min; Glucose 137 mg/dL (74-106); Potassium 3.8 mmol/L (3.5-5.1); Sodium Level 139 mmol/L (136-145)
[2021-07-29] MEDS: Na Biphos/Potassium Phosphate PACKET 1 PACKET PO ×3 (06:24→22:24)
[2021-07-29] MEDS: 0.9% Normal Saline 1,000 ML 75 ML IV (06:24)
[2021-07-29] MEDS: Acetaminophen 325 MG Tablet 650 MG PO ×2 (07:17→14:15)
[2021-07-29] MEDS: oxyCODONE 5 MG Tablet PO ×3 (07:17→22:23)
[2021-07-29 08:05] LABS: Bedside Glucose 141 mg/dL (74-106)
--- NOTE | 2021-07-29 08:34 | PN.HOSP_ITS ---
Subjective Subjective Patient is still Aches and-Pain but slightly better. Mild swelling of the fingers. Hypercalcemia gradually improving. Objective Data Objective Data Vital Signs: Vital Signs Temp Pulse Resp BP Pulse Ox 97.8 F 63 18 148/86 H 93 07/29/21 07:37 07/29/21 07:42 07/29/21 07:37 07/29/21 07:37 07/29/21 07:37 Oxygen Delivery Method Room Air Weight: 269 lb 13.533 oz Body Mass Index (BMI) 38.6 Intake & Output: Intake and Output for Last 24 Hours 07/27/21 07/28/21 07/29/21 23:59 23:59 23:59 Intake Total 2400 / 2800 2441.25 / 2841.25 1400 / 1400 Output Total 1000 / 2100 3000 / 3800 2000 / 2000 Balance 1400 / 700 -558.75 / -958.75 -600 / -600 Lab / Micro Data Result Diagrams: 07/27/21 03:37 07/29/21 04:22 Labs: Laboratory Results - last 24 hr 07/28/21 11:22: POC Glucose 187 H 07/28/21 14:46: Sodium 140, Potassium 3.7, Chloride 107, Carbon Dioxide 30.0, Anion Gap 3 L, BUN 28 H, Creatinine 1.11, Estim Creat Clear Calc 69.42, Est GFR (MDRD) Af Amer 86, Est GFR (MDRD) Non-Af 71, BUN/Creatinine Ratio 25.2 H, Glucose 147 H, Calcium 11.8 H 07/28/21 17:01: POC Glucose 142 H 07/28/21 21:18: POC Glucose 160 H 07/29/21 04:22: Sodium 139, Potassium 3.8, Chloride 109 H, Carbon Dioxide 25.0, Anion Gap 5, BUN 28 H, Creatinine 0.87, Estim Creat Clear Calc 88.57, Est GFR (MDRD) Af Amer 113, Est GFR (MDRD) Non-Af 93, BUN/Creatinine Ratio 32.0 H, Glucose 137 H, Calcium 11.5 H 07/29/21 07:55: POC Glucose 141 H Physical Exam Narrative General: Alert, Oriented x3, Cooperative. Fatigue is better HEENT: Atraumatic, PERRLA, EOMI, Normocephalic Oral: No Gingival or Mucosal Lesions/ Ulcerations Neck: Supple, No JVD, Negative Carotid Bruits Lungs: Air entry diminished in bilateral lung bases. No crepitation/rhonchi/wheezing Cardiovascular: Regular rate, Regular Rhythm, Normal S1, Normal S2, systolic murmur LLSB Abdomen: Bowel Sounds Present, Soft, Non Tender, Non-Distended : No renal angle tenderness. No suprapubic tenderness. Extremities: Bilateral lower leg edema, mild. Capillary Refill Less than 3 Seconds Skin: No rashes, No breakdown Musculoskeletal: No Tenderness to Palpation of Joints or Extremities. Range of motion decreased/limited Neurological: Cranial nerves II-XII grossly intact, DTR 2+/4 and Symmetrical, Neuro grossly intact Psych/Mental Status: Flat affect Assessment & Plan Assessment/Plan (1) Debility: (2) Hypercalcemia: PLAN: Chronic HFpEF and right ventricular failure with history of single- vessel coronary artery disease status post stent placement on admission: Patient had cardiac cath in May [address] Gracia. Prior to this in 2014 patient had right heart and left heart cath which showed right ventricular elevated 49/6, PA mean 32 mmHg, mean PCWP 21. Consistent with moderate pulmonary hypertension with moderate to severe left ventricular end-diastolic indicating diastolic dysfunction/chronic HFpEF. Echo in November 2018 reported RVSP 31 mmHg, mild MR, LA moderately enlarged, moderately dilated RV. Although last echo in May 2021 shows EF 60% with normal left atrium normal RV size and systolic function. I think this is subjective variation and reported in echo but patient has generalized leg swelling with history of chronic HFpEF and right ventricular heart failure. Currently Lasix is on hold due to hyperglycemia 07/28: Patient getting IV fluid. Furosemide 40 mg IV 1 dose ordered to augment saline diuresis for hypercalcemia. Lungs clear. No features of acute heart failure. Acute on chronic Hypercalcemia, most likely due to vitamin D deficiency not a dherent with vitamin D and Lasix. Patient saw foreign agent Dr. Urias on 05/11/2021. It was recommended that he takes his vitamin D that was prescribed by PCP. Of notes vitamin D level on 04/28/2019 was 8.7. Intact parathyroid hormone on 05/11/2021 was elevated at 207.1 most likely due to vitamin D deficiency Per foreign agent vitamin D level is low leading to high PTH and hypercalcemia. 07/28: Calcium 11.9 g%. Continue IV fluid normal saline. Hypophosphatemia. Probably related to hypercalcemia. On Neutra-Phos. 07/29: Calcium 11.5 g%. Continue IV fluid normal saline for saline diuresis along with Lasix 40 mg IV daily. Potassium 3.8. Diabetes mellitus type II with hyperglycemia. Metformin on hold. Continue Jardiance. On high dose of U500 for meals. Reportedly takes between 60 to 80 units 3 times daily for mL. Report that last insulin taken before presentation was 60 units and skipped about 2 doses of insulin before presentation. Will de-escalate prandial insulin. Accu-Chek QA [facility] with correction scale insulin ordered. 07/29: Glucose between 140 to 180 mg/dL. In the settable range. Leukocytosis Review of CBC showed white count of 13.8 with neutrophilia and lymphopenia. Likely reactive/dehydration. CBC monitoring shows decrease in WBC count. Hypertension, elevated. Losartan and metoprolol continued. As needed hydralazine ordered. DVT prophylaxis Subcutaneous Lovenox ordered. Charges/Coding Visit Charges Inpatient E&M: 03060 Subs Hosp L2
[2021-07-29] MEDS: Fenofibrate 145 MG Tablet PO (08:37)
[2021-07-29] MEDS: Metoprolol(XL)Succ 100 MG Tablet PO ×2 (08:37→22:24)
[2021-07-29] MEDS: Ranolazine 500 MG Tablet PO ×2 (08:38→22:23)
[2021-07-29] MEDS: Losartan Potassium 25 MG Tablet PO (08:38)
[2021-07-29] MEDS: Aspirin 81 MG TAB.CHEW PO (08:38)
[2021-07-29] MEDS: Clopidogrel Bisulfate 75 MG Tablet PO (08:38)
[2021-07-29] MEDS: Insulin Lispro 100 UNIT/ML INSULN.PEN 20 UNIT SC ×3 (08:39→17:12)
[2021-07-29] MEDS: Empagliflozin 25 MG Tablet PO (08:39)
[2021-07-29] MEDS: amLODIPine 10 MG Tablet PO (08:39)
[2021-07-29] MEDS: Paroxetine 20 MG Tablet 40 MG PO (08:39)
[2021-07-29] MEDS: Nystatin Powder 15gm Bottle 1 APPLIC TOPICAL ×2 (08:40→22:23)
[2021-07-29] MEDS: Enoxaparin 40 MG/0.4 ML Syringe SC (08:40)
[2021-07-29] MEDS: Menthol/Lanolin/Calamine/Znox 113 GM Tube 1 APPLIC TOPICAL ×2 (08:40→22:23)
[2021-07-29] MEDS: Furosemide 40 MG/4 ML Vial IV (09:01)
--- NOTE | 2021-07-29 09:59 | CASEMGMT ---
Addendum entered by Priya Dubon 07/29/21 10:36: GLORIA received call from Michelle at [facility] stating pre-cert is still pending. GLORIA faxed updated clinicals to [facility]. Original Note: Social Work Note GLORIA received call from Nurse Angy at [facility] asking if pt was going to admit today as she was told pt was going to admit yesterday and pt never did. GLORIA informed Angy that this worker is still waiting on pre-cert for [facility] and that this worker spoke with Teri in admissions yesterday who stated pre-cert was still pending. Angy states understanding. GLORIA placed a call to Michelle at [facility] and left message regarding pre-cert. Plan: [facility] pending pre-cert Priya Dubon PRODUCTION WELDER, CHECKOUT OPERATOR
--- NOTE | 2021-07-29 10:35 | NURSING ---
Assisted patient with finishing bath in bathroom. patient had a large BM. new gown applied. patient requesting going back into the bed rather than the chair d/t just having lasix and states its too difficult to use the urinal in the chair. pt into the bed. asked to use the urinal again. pt voided 550 cc's. new attends applied. pt denies further needs at this time. call light in reach.
[2021-07-29 11:35] LABS: Bedside Glucose 183 mg/dL (74-106)
[2021-07-29] MEDS: Insulin Lispro 100 UNIT/ML INSULN.PEN SC (12:07)
[2021-07-29] MEDS: 0.9% Normal Saline 1,000 ML 150 ML IV (14:12)
[2021-07-29 14:32] LABS: Calcium,Total 12.1 mg/dL (8.5-10.1)
[2021-07-29 17:25] LABS: Bedside Glucose 109 mg/dL (74-106)
[2021-07-29 19:15] LABS: Bedside Glucose 182 mg/dL (74-106)
[2021-07-29] MEDS: 0.9% Normal Saline 1,000 ML 200 ML IV (19:33)
[2021-07-29] MEDS: Atorvastatin Calcium 40 MG Tablet PO (22:23)
[2021-07-29 22:31] LABS: Bedside Glucose 141 mg/dL (74-106)
[2021-07-30] VITALS (11 sets, daily range): BP systolic 138–158; BP diastolic 68–90; PULSE 58–70; RESP 16–22; TEMP 36.2–36.8; O2SAT 93–96
[2021-07-30] MEDS: 0.9% Saline Lock 10 ML Syringe IV (00:38)
[2021-07-30] MEDS: Furosemide 20 MG/2 ML VIAL IV (00:38)
[2021-07-30] MEDS: 0.9% Normal Saline 1,000 ML 100 ML IV ×2 (00:38→10:31)
[2021-07-30] MEDS: oxyCODONE 5 MG Tablet PO ×2 (01:41→07:52)
[2021-07-30] MEDS: Na Biphos/Potassium Phosphate PACKET 1 PACKET PO (06:15)
--- NOTE | 2021-07-30 07:33 | PN.HOSP_ITS ---
Objective Data Objective Data Vital Signs: Vital Signs Temp Pulse Resp BP Pulse Ox 97.8 F 70 18 149/83 H 93 07/30/21 06:11 07/30/21 06:11 07/30/21 06:11 07/30/21 06:11 07/30/21 06:11 Oxygen Delivery Method Room Air Weight: 269 lb 13.533 oz Body Mass Index (BMI) 38.6 Intake & Output: Intake and Output for Last 24 Hours 07/28/21 07/29/21 07/30/21 23:59 23:59 23:59 Intake Total 2441.25 / 2841.25 3373.75 / 3373.75 1000 / 1000 Output Total 3000 / 3800 4650 / 6650 3175 / 3175 Balance -558.75 / -958.75 -1276.25 / -3276.25 -2175 / -2175 Lab / Micro Data Result Diagrams: 07/27/21 03:37 07/29/21 04:22 Labs: Laboratory Results - last 24 hr 07/29/21 07:55: POC Glucose 141 H 07/29/21 11:29: POC Glucose 183 H 07/29/21 14:00: Calcium 12.1 H 07/29/21 17:01: POC Glucose 109 H 07/29/21 19:11: POC Glucose 182 H 07/29/21 22:17: POC Glucose 141 H Physical Exam Narrative General: Alert, Oriented x3, Cooperative. Fatigue is better HEENT: Atraumatic, PERRLA, EOMI, Normocephalic Oral: No Gingival or Mucosal Lesions/ Ulcerations Neck: Supple, No JVD, Negative Carotid Bruits Lungs: Air entry diminished in bilateral lung bases. No crepitation/rhonchi/wheezing Cardiovascular: Regular rate, Regular Rhythm, Normal S1, Normal S2, systolic murmur LLSB Abdomen: Bowel Sounds Present, Soft, Non Tender, Non-Distended : No renal angle tenderness. No suprapubic tenderness. Extremities: Bilateral lower leg edema, mild. Capillary Refill Less than 3 Seconds Skin: No rashes, No breakdown Musculoskeletal: No Tenderness to Palpation of Joints or Extremities. Range of motion decreased/limited Neurological: Cranial nerves II-XII grossly intact, DTR 2+/4 and Symmetrical, Neuro grossly intact Psych/Mental Status: Flat affect Assessment & Plan Assessment/Plan (1) Debility: (2) Hypercalcemia: PLAN: Chronic HFpEF and right ventricular failure with history of single- vessel coronary artery disease status post stent placement on admission: Patient had cardiac cath in May [address] Gracia. Prior to this in 2014 patient had right heart and left heart cath which showed right ventricular elevated 49/6, PA mean 32 mmHg, mean PCWP 21. Consistent with moderate pulmonary hypertension with moderate to severe left ventricular end-diastolic indicating diastolic dysfunction/chronic HFpEF. Echo in November 2018 reported RVSP 31 mmHg, mild MR, LA moderately enlarged, moderately dilated RV. Although last echo in May 2021 shows EF 60% with normal left atrium normal RV size and systolic function. I think this is subjective variation and reported in echo but patient has generalized leg swelling with history of chronic HFpEF and right ventricular heart failure. Currently Lasix is on hold due to hyperglycemia 07/28: Patient getting IV fluid. Furosemide 40 mg IV 1 dose ordered to augment saline diuresis for hypercalcemia. Lungs clear. No features of acute heart failure. Acute on chronic Hypercalcemia, most likely due to vitamin D deficiency not adherent with vitamin D and Lasix. Patient saw software test manager Dr. Urias on 05/11/2021. It was recommended that he takes his vitamin D that was prescribed by PCP. Of notes vitamin D level on 04/28/2019 was 8.7. Intact parathyroid hormone on 05/11/2021 was elevated at 207.1 most likely due to vitamin D deficiency Per software test manager vitamin D level is low leading to high PTH and hypercalcemia. 07/28: Calcium 11.9 g%. Continue IV fluid normal saline. Hypophosphatemia. Probably related to hypercalcemia. On Neutra-Phos. 07/29: Calcium 11.5 g%. Continue IV fluid normal saline for saline diuresis along with Lasix 40 mg IV daily. Potassium 3.8. Diabetes mellitus type II with hyperglycemia. Metformin on hold. Continue Jardiance. On high dose of U500 for meals. Reportedly takes between 60 to 80 units 3 times daily for mL. Report that last insulin taken before presentation was 60 units and skipped about 2 doses of insulin before presentation. Will de-escalate prandial insulin. Accu-Chek QA CHS with correction scale insulin ordered. 07/29: Glucose between 140 to 180 mg/dL. In the settable range. Leukocytosis Review of CBC showed white count of 13.8 with neutrophilia and lymphopenia. Likely reactive/dehydration. CBC monitoring shows decrease in WBC count. Hypertension, elevated. Losartan and metoprolol continued. As needed hydralazine ordered. DVT prophylaxis Subcutaneous Lovenox ordered.
[2021-07-30] MEDS: amLODIPine 10 MG Tablet PO (07:53)
[2021-07-30] MEDS: Aspirin 81 MG TAB.CHEW PO (07:53)
[2021-07-30] MEDS: Acetaminophen 325 MG Tablet 650 MG PO (07:53)
[2021-07-30] MEDS: Enoxaparin 40 MG/0.4 ML Syringe SC (07:54)
[2021-07-30] MEDS: Clopidogrel Bisulfate 75 MG Tablet PO (07:54)
[2021-07-30] MEDS: Paroxetine 20 MG Tablet 40 MG PO (07:54)
[2021-07-30] MEDS: Empagliflozin 25 MG Tablet PO (07:54)
[2021-07-30] MEDS: Metoprolol(XL)Succ 100 MG Tablet PO (07:54)
[2021-07-30] MEDS: Losartan Potassium 25 MG Tablet PO (07:54)
[2021-07-30 07:55] LABS: Bedside Glucose 142 mg/dL (74-106)
[2021-07-30] MEDS: Fenofibrate 145 MG Tablet PO (07:55)
[2021-07-30] MEDS: Ranolazine 500 MG Tablet PO (07:55)
[2021-07-30] MEDS: Menthol/Lanolin/Calamine/Znox 113 GM Tube 1 APPLIC TOPICAL (07:59)
[2021-07-30] MEDS: Nystatin Powder 15gm Bottle 1 APPLIC TOPICAL (07:59)
[2021-07-30] MEDS: Insulin Lispro 100 UNIT/ML INSULN.PEN 20 UNIT SC ×2 (08:43→11:55)
--- NOTE | 2021-07-30 10:03 | TREXTCAR_ITS ---
Diet 07/27/21 03:36 Diet: Cardiac - Heart Healthy Food consistency:: Regular Liquid Consistency:: Regular/Thin Diet: Consistent Carb - Calorie Controlled Food consistency:: Regular Liquid Consistency:: Regular/Thin How many daily calories?: 1800 calorie Routine Orders/Code Status Suppository Type: Dulcolax 10mg Suppository Frequency: Daily PRN Wound(s) bilateral legs/toes: Wound Type: Abrasion Therapies Weight Bearing: Weight bearing as tolerated Extremity Affected:: Bilateral Lower Physical Therapy: Eval and Treat Occupational Therapy: Eval and Treat Speech Therapy: Eval and Treat Problem/Diagnosis (1) Debility: Status: Acute (2) Hypercalcemia: Status: Acute Allergies/Procedures Done in Hospital Allergies No Known Allergies Allergy (Verified 07/27/21 00:25) Type of Care/Length of Stay Estimated LOS: Convalescent Care Less Than 30 days Type of Care Needed: Skilled Rehab Potential: Good Prognosis: Good Additional Orders/Day of Discharge Day of Discharge: 07/30/21 Discharge Plan Admission Admit Date/Time: 07/27/21 02:41 Primary Reason for Your Visit: Hypercalcemia Attending Provider: Kingsley Hollis Primary Care Provider: Mery Raymond Discharge Orders/Prescriptions Prescriptions: Continued trazodone 50 mg tablet 50 mg PO QHS PRN (Reason: Sleep) RF: 0 (DME) Handicap Placard See Rx Instructions .ROUTE .MEDSUPPLY Qty: 1 RF: 0 furosemide 40 mg tablet 60 mg PO BID RF: 0 Humulin R U-500 (Conc) Kwikpen 500 unit/mL (3 mL) insulin pen SC TID RF: 0 (DME) FreeStyle Tiffanie 2 [place] Misc See Rx Instructions .ROUTE .MEDSUPPLY Qty: 1 RF: 0 (DME) FreeStyle Tiffanie 2 Sensor Kit See Rx Instructions .ROUTE .MEDSUPPLY Qty: 2 RF: 6 Trulicity 1.5 mg/0.5 mL pen injector 1.5 mg subcut QWEEK Qty: 2 RF: 3 (DME) pen needle, diabetic [BD Ultra-Fine Lorie Pen Needle] 32 gauge x 5/32 needle See Rx Instructions .ROUTE .MEDSUPPLY Qty: 360 RF: 5 paroxetine HCl 40 mg tablet 40 mg PO DAILY Qty: 90 RF: 3 meclizine 12.5 mg Tablet 12.5 mg PO TID PRN PRN (Reason: vertigo) Qty: 0 RF: 0 fenofibrate micronized 200 mg capsule 200 mg PO DAILY Qty: 30 RF: 12 albuterol sulfate 90 mcg/actuation HFA aerosol inhaler 2 puff INHALATION Q4H PRN PRN (Reason: Sob &/Or Wheezing) Qty: 18 RF: 6 Jardiance 25 mg tablet 25 mg PO DAILY Qty: 30 RF: 6 metoprolol succinate 200 mg tablet extended release 24 hr 100 mg PO BID Qty: 90 RF: 3 clopidogrel 75 mg tablet 75 mg PO DAILY Qty: 90 RF: 3 (DME) OneTouch Verio test strips Strip See Rx Instructions .ROUTE .MEDSUPPLY Qty: 100 RF: 12 aspirin 81 mg tablet,chewable 81 mg PO DAILY@0800 Qty: 90 RF: 3 amlodipine 10 mg tablet 10 mg PO DAILY Qty: 90 RF: 4 losartan 25 mg tablet 25 mg PO DAILY Qty: 90 RF: 3 metformin 1,000 mg tablet 1,000 mg PO BIDCM Qty: 180 RF: 3 ranolazine 500 mg tablet extended release 12 hr 500 mg PO BID Qty: 180 RF: 3 potassium chloride 20 mEq tablet,ER particles/crystals 40 meq PO TID 90 Days Qty: 540 RF: 1 nitroglycerin 0.4 mg tablet, sublingual 0.4 mg SUBLINGUAL Q5M PRN (Reason: Chest Pain) Qty: 25 RF: 4 Held atorvastatin 40 mg tablet 40 mg PO QHS Qty: 90 RF: 3 Hold Instructions: Hold for 4 days Referrals / Follow Up: Mery Raymond MD [Primary Care Provider] - Within 2 Weeks Vishnu Urias MD [STAFF PHYSICIAN] - Within 1 Month (For further work-up of hypercalcemia. Did not get corrected with IV fluid, serum calcium remained around 11.5-12.0.) Disposition Disposition (needs filled in before D/C Order can be placed): [facility]
--- NOTE | 2021-07-30 10:18 | CASEMGMT ---
Addendum entered by Priya Dubon 07/30/21 11:10: SW in to speak with pt. SW updated pt that pre-cert was obtained and pt will discharge to [facility] today. Pt states understanding. Original Note: Social Work Note SW received call from Teri at [facility] stating pre-cert was obtained and pt can discharge today. Pt will need a COVID test. GLORIA updated physician. Plan: [facility] skilled Priya Dubon FILM SORTER, FORM SETTER SUPERVISOR
[2021-07-30] MEDS: Furosemide 20 MG Tablet 60 MG PO (10:33)
--- NOTE | 2021-07-30 10:43 | DS.PCM_ITS ---
Providers Date of Admission: 07/27/21 Date of Discharge: 07/30/21 Primary Care Physician: Dr. Mery Raymond MD Reason For Visit: DEBILITY Diagnosis Discharge Diagnosis (1) Debility: Status: Acute Code(s): R53.81 - Other malaise (2) Hypercalcemia: Status: Acute Code(s): E83.52 - Hypercalcemia Medications at Discharge Home Medications albuterol sulfate 90 mcg/actuation aerosol inhaler 2 puff INHALATION Q4H PRN PRN #18 g 04/08/19 trazodone 50 mg tablet 50 mg PO QHS PRN 01/13/20 Handicap Placard #1 ea 04/08/20 empagliflozin 25 mg tablet 25 mg PO DAILY #30 tab 06/11/20 metoprolol succinate 200 mg tablet,extended release 24 hr 100 mg PO BID #90 tab 08/06/20 clopidogrel 75 mg tablet 75 mg PO DAILY #90 tab 10/06/20 blood sugar diagnostic #100 ea 11/23/20 aspirin 81 mg chewable tablet 81 mg PO DAILY@0800 #90 tab 11/25/20 amlodipine 10 mg tablet 10 mg PO DAILY #90 tab 12/18/20 losartan 25 mg tablet 25 mg PO DAILY #90 tab 01/12/21 metformin 1,000 mg tablet 1,000 mg PO BIDCM #180 tab 01/12/21 ranolazine 500 mg tablet,extended release,12 hr 500 mg PO BID #180 tab 02/04/21 Trulicity 1.5 mg/0.5 mL subcutaneous pen injector 1.5 mg SUBCUT QWEEK #2 ml NS 02/16/21 flash glucose scanning reader #1 ea 02/16/21 flash glucose sensor #2 ea 02/16/21 pen needle, diabetic 32 gauge x 5/32 #360 ea 02/16/21 potassium chloride 20 mEq tablet,extended release(part/cryst) 40 meq PO TID 90 Days #540 tab 03/01/21 furosemide 40 mg tablet 60 mg PO BID tab 05/04/21 insulin regular hum U-500 conc SC TID ml 05/04/21 nitroglycerin 0.4 mg sublingual tablet 0.4 mg SUBLINGUAL Q5M PRN #25 tab 05/05 meclizine 12.5 mg PO TID PRN PRN #0 tab 05/21/21 atorvastatin 40 mg tablet 40 mg PO QHS #90 tab 07/08/21 paroxetine HCl 40 mg tablet 40 mg PO DAILY #90 tab 07/08/21 fenofibrate micronized 200 mg PO DAILY #30 cap 07/30/21 Hospital Course Summary of Care Provided Hospital Course: This is a 65-year-old question) with history of coronary artery status post stent was admitted with generalized weakness, unable to stand up or walk. Initially patient was doing his usual house chores. 1. Chronic HFpEF and right ventricular failure with history of single-vessel coronary artery disease status post stent placement on admission: Patient had cardiac cath in May [address] Gracia. Prior to this in 2014 patient had right heart and left heart cath which showed right ventricular elevated 49/6, PA mean 32 mmHg, mean PCWP 21. Consistent with moderate pulmonary hypertension with moderate to severe left ventricular end-diastolic indicating diastolic dysfunction/chronic HFpEF. Echo in November 2018 reported RVSP 31 mmHg, mild MR, LA moderately enlarged, moderately dilated RV. Although last echo in May 2021 shows EF 60% with normal left atrium normal RV size and systolic function. I think this is subjective variation and reported in echo but patient has generalized leg swelling with history of chronic HFpEF and right ventricular heart failure. Currently Lasix is on hold due to hyperglycemia 07/28: Patient getting IV fluid. Furosemide 40 mg IV 1 dose ordered to augment saline diuresis for hypercalcemia. Lungs clear. No features of acute heart failure. 07/30: Patient was due to fluid overload with lung crepitations. Lasix 20 mg IV given and 3 L urine output. Lungs are clear. Patient put back on his usual Lasix 60 mg p.o. twice daily. IV fluid will be discontinued at time of discharge. Acute on chronic Hypercalcemia, most likely due to vitamin D deficiency not adherent with vitamin D and Lasix. Patient saw communications marketing intern Dr. Urias on 05/11/2021. It was recommended that he takes his vitamin D that was prescribed by PCP. Of notes vitamin D level on 04/28/2019 was 8.7. Intact parathyroid hormone on 05/11/2021 was elevated at 207.1 most likely due to vitamin D deficiency Per communications marketing intern vitamin D level is low leading to high PTH and hypercalcemia. 07/28: Calcium 11.9 g%. Continue IV fluid normal saline. Hypophosphatemia. Probably related to hypercalcemia. On Neutra-Phos. 07/29: Calcium 11.5 g%. Continue IV fluid normal saline for saline diuresis rafi ng with Lasix 40 mg IV daily. Potassium 3.8. 07/30: There was not much success with hypercalcemia. Calcium 12.1 yesterday afternoon. Repeat calcium ordered. It seems patient was started on Jardiance in first week of June by communications marketing intern. Jardiance has hypercalcemia in first month after starting but increased normalized. Patient is in second month therefore unclear if Jardiance is the cause. Repeat BMP in 1 week. Advised to follow-up communications marketing intern Dr. Chauncey Urias within 1 month to further explore the causes of hypercalcemia Diabetes mellitus type II with hyperglycemia. Metformin on hold. Continue Jardiance. On high dose of U500 for meals. Reportedly takes between 60 to 80 units 3 times daily for mL. Report that last insulin taken before presentation was 60 units and skipped about 2 doses of insulin before presentation. Will de-escalate prandial insulin. Accu-Chek QA CHS with correction scale insulin ordered. 07/29: Glucose between 140 to 180 mg/dL. In the settable range. 07/30: Patient put back on his home medications. Leukocytosis Review of CBC showed white count of 13.8 with neutrophilia and lymphopenia. Likely reactive/dehydration. CBC monitoring shows decrease in WBC count. Hypertension, elevated. Losartan and metoprolol continued. As needed hydralazine ordered. DVT prophylaxis Subcutaneous Lovenox ordered. Discharge medication reconciliation done. Discharge follow-up instructions completed. Discharge process discussed with the patient and all questions were answered to patient's satisfaction. Discharged to SNF Total time spent, exact 35 minutes on discharge meds reconciliation, examination, coordination of care with nurses and ancillary staff, review of imaging and blood test and discussion with the patient on follow-up instructions. Physical Exam Narrative Seen and examined. Patient had crepitations therefore Lasix 20 mg IV was given. After that, patient had 3 L urine output. General: Alert, Oriented x3, Cooperative. Fatigue is better HEENT: Atraumatic, PERRLA, EOMI, Normocephalic Oral: No Gingival or Mucosal Lesions/ Ulcerations Neck: Supple, No JVD, Negative Carotid Bruits Lungs: Air entry diminished in bilateral lung bases. Lungs clear. No crepitation/rhonchi/wheezing Cardiovascular: Regular rate, Regular Rhythm, Normal S1, Normal S2, systolic murmur LLSB Abdomen: Bowel Sounds Present, Soft, Non Tender, Non-Distended : No renal angle tenderness. No suprapubic tenderness. Extremities: Bilateral lower leg edema, mild. Capillary Refill Less than 3 Seconds Skin: No rashes, No breakdown Musculoskeletal: Mild swelling of the hands. Range of motion decreased/limited Neurological: Cranial nerves II-XII grossly intact, DTR 2+/4 and Symmetrical, Neuro grossly intact Psych/Mental Status: Flat affect Weight / BMI Weight Weight: 269 lb 13.533 oz Body Mass Index (BMI) 38.6 ABG / Lab / Microbiology Data Result Diagrams: 07/27/21 03:37 07/29/21 04:22 Laboratory: Laboratory Results - last 24 hr 07/29/21 11:29: POC Glucose 183 H 07/29/21 14:00: Calcium 12.1 H 07/29/21 17:01: POC Glucose 109 H 07/29/21 19:11: POC Glucose 182 H 07/29/21 22:17: POC Glucose 141 H 07/30/21 07:41: POC Glucose 142 H Meaningful Use Info Meaningful Use Diagnoses (Choose all that apply): None applicable Discharge Plan Admission Admit Date/Time: 07/27/21 02:41 Primary Reason for Your Visit: Hypercalcemia Attending Provider: Kingsley Hollis Primary Care Provider: Mery Raymond Discharge Orders/Prescriptions Prescriptions: Continued trazodone 50 mg tablet 50 mg PO QHS PRN (Reason: Sleep) RF: 0 (DME) Handicap Placard See Rx Instructions .ROUTE .MEDSUPPLY Qty: 1 RF: 0 furosemide 40 mg tablet 60 mg PO BID RF: 0 Humulin R U-500 (Conc) Kwikpen 500 unit/mL (3 mL) insulin pen SC TID RF: 0 (DME) FreeStyle Tiffanie 2 [place] Misc See Rx Instructions .ROUTE .MEDSUPPLY Qty: 1 RF: 0 (DME) FreeStyle Tiffanie 2 Sensor Kit See Rx Instructions .ROUTE .MEDSUPPLY Qty: 2 RF: 6 Trulicity 1.5 mg/0.5 mL pen injector 1.5 mg subcut QWEEK Qty: 2 RF: 3 (DME) pen needle, diabetic [BD Ultra-Fine [place] Pen Needle] 32 gauge x 5/32 needle See Rx Instructions .ROUTE .MEDSUPPLY Qty: 360 RF: 5 paroxetine HCl 40 mg tablet 40 mg PO DAILY Qty: 90 RF: 3 meclizine 12.5 mg Tablet 12.5 mg PO TID PRN PRN (Reason: vertigo) Qty: 0 RF: 0 fenofibrate micronized 200 mg capsule 200 mg PO DAILY Qty: 30 RF: 12 albuterol sulfate 90 mcg/actuation HFA aerosol inhaler 2 puff INHALATION Q4H PRN PRN (Reason: Sob &/Or Wheezing) Qty: 18 RF: 6 Jardiance 25 mg tablet 25 mg PO DAILY Qty: 30 RF: 6 metoprolol succinate 200 mg tablet extended release 24 hr 100 mg PO BID Qty: 90 RF: 3 clopidogrel 75 mg tablet 75 mg PO DAILY Qty: 90 RF: 3 (DME) OneTouch Verio test strips Strip See Rx Instructions .ROUTE .MEDSUPPLY Qty: 100 RF: 12 aspirin 81 mg tablet,chewable 81 mg PO DAILY@0800 Qty: 90 RF: 3 amlodipine 10 mg tablet 10 mg PO DAILY Qty: 90 RF: 4 losartan 25 mg tablet 25 mg PO DAILY Qty: 90 RF: 3 metformin 1,000 mg tablet 1,000 mg PO BIDCM Qty: 180 RF: 3 ranolazine 500 mg tablet extended release 12 hr 500 mg PO BID Qty: 180 RF: 3 potassium chloride 20 mEq tablet,ER particles/crystals 40 meq PO TID 90 Days Qty: 540 RF: 1 nitroglycerin 0.4 mg tablet, sublingual 0.4 mg SUBLINGUAL Q5M PRN (Reason: Chest Pain) Qty: 25 RF: 4 Held atorvastatin 40 mg tablet 40 mg PO QHS Qty: 90 RF: 3 Hold Instructions: Hold for 4 days Referrals / Follow Up: Mery Raymond MD [Primary Care Provider] - Within 2 Weeks Vishnu Urias MD [STAFF PHYSICIAN] - Within 1 Month (For further work-up of hypercalcemia. Did not get corrected with IV fluid, serum calcium remained around 11.5-12.0.) Disposition Disposition (needs filled in before D/C Order can be placed): [facility] Facility
--- NOTE | 2021-07-30 11:28 | PHA.DC.MR ---
Pharmacy Service has performed discharge medication reconciliation for this patient. The patient's discharge medication list was reviewed for discrepancies and discrepancies were resolved. Home Medications albuterol sulfate 90 mcg/actuation aerosol inhaler 2 puff INHALATION Q4H PRN PRN #18 g 04/08/19 trazodone 50 mg tablet 50 mg PO QHS PRN 01/13/20 Handicap Placard #1 ea 04/08/20 empagliflozin 25 mg tablet 25 mg PO DAILY #30 tab 06/11/20 metoprolol succinate 200 mg tablet,extended release 24 hr 100 mg PO BID #90 tab 08/06/20 clopidogrel 75 mg tablet 75 mg PO DAILY #90 tab 10/06/20 blood sugar diagnostic #100 ea 11/23/20 aspirin 81 mg chewable tablet 81 mg PO DAILY@0800 #90 tab 11/25/20 amlodipine 10 mg tablet 10 mg PO DAILY #90 tab 12/18/20 losartan 25 mg tablet 25 mg PO DAILY #90 tab 01/12/21 metformin 1,000 mg tablet 1,000 mg PO BIDCM #180 tab 01/12/21 ranolazine 500 mg tablet,extended release,12 hr 500 mg PO BID #180 tab 02/04/21 Trulicity 1.5 mg/0.5 mL subcutaneous pen injector 1.5 mg SUBCUT QWEEK #2 ml NS 02/16/21 flash glucose scanning reader #1 ea 02/16/21 flash glucose sensor #2 ea 02/16/21 pen needle, diabetic 32 gauge x 5/32 #360 ea 02/16/21 potassium chloride 20 mEq tablet,extended release(part/cryst) 40 meq PO TID 90 Days #540 tab 03/01/21 furosemide 40 mg tablet 60 mg PO BID tab 05/04/21 insulin regular hum U-500 conc SC TID ml 05/04/21 nitroglycerin 0.4 mg sublingual tablet 0.4 mg SUBLINGUAL Q5M PRN #25 tab 05/05/21 meclizine 12.5 mg PO TID PRN PRN #0 tab 05/21/21 atorvastatin 40 mg tablet 40 mg PO QHS #90 tab 07/08/21 paroxetine HCl 40 mg tablet 40 mg PO DAILY #90 tab 07/08/21 fenofibrate micronized 200 mg PO DAILY #30 cap 07/30/21
[2021-07-30 11:31] LABS: Anion Gap 6 (5-15); BUN 22 mg/dL (7-18); BUN/Creat Ratio 21.6 RATIO (10-20); Calcium,Total 11.4 mg/dL (8.5-10.1); Chloride 106 mmol/L (98-107); Creatinine, Serum 1.02 mg/dL (0.70-1.30); EST Glomerular Filtration Rate 78 mL/min (>60); Est Glom Filt Rate - Afr Amer 94 mL/min (>60); Estimated Creatinine Clearance 75.54 ml/min; Glucose 217 mg/dL (74-106); Magnesium 2.2 mg/dL (1.6-2.6); Phosphorus 2.4 mg/dL (2.5-4.9); Potassium 3.6 mmol/L (3.5-5.1); Sodium Level 139 mmol/L (136-145)
[2021-07-30 11:31] LABS: Bedside Glucose 223 mg/dL (74-106)
[2021-07-30] MEDS: Insulin Lispro 100 UNIT/ML INSULN.PEN SC (11:55)
--- NOTE | 2021-07-30 13:10 | CASEMGMT ---
Social Work Note GLORIA faxed completed discharge paperwork to [facility] including transfer to extended care facility, signed medication list, any scripts, COVID test/tool, PAS/RR and PAS/RR results, Original in SNF folder and copy on pt's chart. GLORIA spoke with RN, pt to transport via wheelchair van. SW accessed trip assist and arranged transportation via wheelchair van for 2:00pm. Transportation form competed and placed on SNF folder and copy on pt's chart. SW updated RN on transportation time. GLORIA placed a call to [facility] and left message for Teri updating her on transportation time. SW in to speak with pt and updated him on transportation time. SW informed pt that he will get a bill for transportation. Pt states understanding. Plan: [facility] skilled today under PAS/RR level of care with Physician's transporting pt via wheelchair van at 2:00pm. Priya Dubon HEALTHCARE PROF, [employer]
== END 2021-07-30 14:14 | disposition skilled nursing facility (03) ==
LOC: ED 02:33 → MS3 02:41
PROVIDERS: Admitting Provider Hospitalist; Emergency Provider Emergency Medicine; PCP Internal Medicine; Visit Provider Internal Medicine
DX: I11.0 Hypertensive heart disease with heart failure (principal); I50.32 Chronic diastolic (congestive) heart failure; E11.65 Type 2 diabetes mellitus with hyperglycemia; E66.01 Morbid (severe) obesity due to excess calories; Z79.4 Long term (current) use of insulin; R53.81 Other malaise; R62.7 Adult failure to thrive; E83.39 Other disorders of phosphorus metabolism; Z79.02 Long term (current) use of antithrombotics/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; M25.561 Pain in right knee; Z79.82 Long term (current) use of aspirin; I25.10 Atherosclerotic heart disease of native coronary artery without angina pectoris; G89.29 Other chronic pain; M25.522 Pain in left elbow; E83.52 Hypercalcemia; M25.562 Pain in left knee; R53.1 Weakness; G47.33 Obstructive sleep apnea (adult) (pediatric); M25.521 Pain in right elbow; E78.1 Pure hyperglyceridemia; M19.90 Unspecified osteoarthritis, unspecified site; Z68.39 Body mass index [BMI] 39.0-39.9, adult; Z79.899 Other long term (current) drug therapy; Z86.718 Personal history of other venous thrombosis and embolism; Z86.711 Personal history of pulmonary embolism; E80.7 Disorder of bilirubin metabolism, unspecified
CPT/HCPCS: 36415; 80048; 80053; 82040; 82310; 82962; 83735; 84100; 84484; 85025; 87426; 94002; 94003; 94762; 96361; 96372; 96374; 96376; 97110; 97162; 97166; 97530; 97535; 99218; 99285; J7030; A4216; G0378; J1940

== ENCOUNTER 2021-08-23 14:26 | Emergency (ER) | payer MEDICARE, SELFPAY ==
[2021-05-11 12:06] VITALS: BMI 43.3
[2021-08-23 14:27] VITALS: BP 149/78; PULSE 67; RESP 18; TEMP 36.4; O2SAT 97; BMI 36.6
--- NOTE | 2021-08-23 14:47 | EKG12_ITS ---
Test Reason : ABLABS Blood Pressure : / mmHG Vent. Rate : 064 BPM Atrial Rate : 064 BPM P-R Int : 218 ms QRS Dur : 100 ms QT Int : 400 ms P-R-T Axes : 067 -03 052 degrees QTc Int : 412 ms Sinus rhythm with 1st degree A-V block Low voltage QRS Septal infarct , age undetermined Abnormal ECG Confirmed by LIZZIE PIZANO, JEET ([id number]), features editor NAZ NORIEGA ([id number]) on 08/25/2021 10:31:31 AM Referred By: ORIANA Confirmed By:JEET SAMUEL MD
--- NOTE | 2021-08-23 14:54 | EX.ED.DYSGE1 ---
HPI History of Present Illness Chief Complaint: Abn Labs Informant: patient Narrative Narrative: 65-year-old male comes to the emergency department chief complaint of hypercalcemia. Patient has a diagnosis of primary hyperparathyroidism and has been undergoing Lasix diuresis and vitamin D3. Despite this therapy his calcium continues to elevate. Today he was at the endocrinology office and was noted to be 13.2. Because of the continued elevation despite treatment he was sent to the emergency department. Patient notes some occasional muscle spasms in his feet but otherwise states he has been doing better. [facility] and spends most of his time in a wheelchair but does get up and use a walker at times. [facility] Medical History Abnormal chest xray Acquired left ventricular hypertrophy Adult failure to thrive Arthritis Atherosclerosis of coronary artery of [place] heart without angina pectoris Chest discomfort Chronic hypoxemic respiratory failure Chronic pain of both knees Colon cancer screening Debility Diabetes Diabetes Dyspnea on exertion Epistaxis Essential (primary) hypertension Fatigue Flu vaccine need Generalized weakness Health care maintenance History of DVT (deep vein thrombosis) History of pulmonary embolism Hypercalcemia Hypertension Hypertriglyceridemia Hypoxia Irregular heart beat Morbid obesity with BMI of 40.0-44.9, adult Near syncope Obesity AFVIAN (obstructive sleep apnea) Osteoarthritis Pulmonary embolism Pure hypercholesterolemia Seizures Type 2 diabetes mellitus Home Medications albuterol sulfate 90 mcg/actuation aerosol inhaler 2 puff INHALATION Q4H PRN PRN #18 g 04/08/19 [Rx Last Taken 10/22/19] trazodone 50 mg tablet 50 mg PO QHS PRN 01/13/20 [History Last Taken 08/10/21] Handicap Placard #1 ea 04/08/20 [Rx Last Taken Unknown] empagliflozin 25 mg tablet 25 mg PO DAILY #30 tab 06/11/20 [Rx Last Taken 08/23/21] clopidogrel 75 mg tablet 75 mg PO DAILY #90 tab 10/06/20 [Rx Last Taken 08/23/21] blood sugar diagnostic #100 ea 11/23/20 [Rx Last Taken Unknown] aspirin 81 mg chewable tablet 81 mg PO DAILY@0800 #90 tab 11/25/20 [Rx Last Taken 08/23/21] amlodipine 10 mg tablet 10 mg PO DAILY #90 tab 12/18/20 [Rx Last Taken 08/23/21] losartan 25 mg tablet 25 mg PO DAILY #90 tab 01/12/21 [Rx Last Taken 08/23/21] metformin 1,000 mg tablet 1,000 mg PO BIDCM #180 tab 01/12/21 [Rx Last Taken 08/23/21] ranolazine 500 mg tablet,extended release,12 hr 500 mg PO BID #180 tab 02/04/21 [Rx Last Taken 08/23/21] flash glucose scanning reader #1 ea 02/16/21 [Rx Last Taken Unknown] flash glucose sensor #2 ea 02/16/21 [Rx Last Taken Unknown] pen needle, diabetic 32 gauge x #360 ea 02/16/21 [Rx Last Taken Unknown] potassium chloride 20 mEq tablet,extended release(part/cryst) 40 meq PO TID 90 Days #540 tab 03/01/21 [Rx Last Taken 08/23/21] nitroglycerin 0.4 mg sublingual tablet 0.4 mg SUBLINGUAL Q5M PRN #25 tab 05/05/21 [Rx Last Taken Unknown] meclizine 12.5 mg PO TID PRN PRN #0 tab 05/21/21 [Rx Last Taken Unknown] atorvastatin 40 mg tablet 40 mg PO QHS #90 tab 07/08/21 [Rx Last Taken 08/22/21] paroxetine HCl 40 mg tablet 40 mg PO DAILY #90 tab 07/08/21 [Rx Last Taken 08/23/21] fenofibrate micronized 200 mg PO DAILY #30 cap 07/30/21 [Rx Last Taken 08/23/21] metoprolol succinate 100 mg tablet,extended release 24 hr 100 mg PO BID #180 tab 08/09/21 [Rx Last Taken 08/23/21] acetaminophen 1,000 mg PO Q8 PRN 08/23/21 [History Last Taken 08/20/21] bisacodyl 10 mg SD DAILY PRN 08/23/21 [History Last Taken Unknown] cholecalciferol (vitamin D3) 1,250 mcg PO TUFR 08/23/21 [History Last Taken 08/20/21] furosemide 60 mg PO BID 08/23/21 [History Last Taken 08/22/21] insulin regular hum U-500 conc [Humulin R U-500 (Conc) Kwikpen] 30 unit SUBCUT DINNER@1700 08/23/21 [History Last Taken 08/22/21] insulin regular hum U-500 conc [Humulin R U-500 (Conc) Kwikpen] 40 unit SUBCUT BREAKFAST@0800 08/23/21 [History Last Taken 08/22/21] insulin regular hum U-500 conc [Humulin R U-500 (Conc) Kwikpen] 40 unit SUBCUT LUNCH@1200 08/23/21 [History Last Taken 08/23/21] magnesium hydroxide [Milk of Magnesia] 30 ml PO DAILY PRN 08/23/21 [History Last Taken Unknown] sodium phosphates [Enema] 118 ml SD DAILY PRN 08/23/21 [History Last Taken Unknown] Allergy/AdvReac Type Severity Reaction Status Date / Time No Known Allergies Allergy Verified 08/23/21 14:32 Family History Mother Colon cancer Sister CAD (coronary artery disease) CABG x 5 Diabetes Myocardial infarction, Onset Age: 67 Father Crohns disease Surgical History History of appendectomy History of appendectomy 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 Smoking Status: Never smoker second hand exposure: Yes alcohol intake: former year quit: 2003 details: Sober since 2003. substance use type: former substance user Date of last use: 04/10/2004 and marijuana caffeine: Yes Type: carbonated beverages Number of servings: 2 and coffee Number of servings: 2 what type of physical activity do you participate in: none ROS ROS ED ROS Narrative Generalized weakness Constitutional Constitutional ED: Denies chills, fever(s) or weight loss Eyes Eyes: Denies change in vision or diplopia ENT ENT ED: Denies ear pain, rhinorrhea or sore throat Cardiovascular Cardiovascular: Denies chest pain, orthopnea, palpitations or racing heartbeat Respiratory/Chest Respiratory/Chest: Denies cough, dyspnea or orthopnea Gastrointestinal Gastrointestinal: Denies abdominal pain, diarrhea, nausea or vomiting Genitourinary Genitourinary ED: Denies dysuria, hematuria or urinary frequency Musculoskeletal Musculoskeletal: Denies arthralgias or myalgias Integumentary Denies abscess or rash Neurologic Neurologic: Denies headache(s) or weakness Psychiatric Psychiatric: Denies anxiety, depression, suicidal ideation or suicidal thoughts Endocrine Endocrinology: Denies polydipsia, polyphagia or polyuria Allergic/Immunologic Allergic/Immunologic ED: Denies mouth swelling, tongue swelling or urticaria EXAM Physical Exam Const Vital Signs: 08/23/21 14:27 08/23/21 15:06 08/23/21 16:11 Temperature 97.6 F L Temperature Source Oral Pulse Rate 67 61 Respiratory Rate 18 Respiratory Effort Normal Non-Labored Blood Pressure 149/78 H 137/61 H Blood Pressure Mean 101 86 Pulse Ox 97 Oxygen Delivery Method Room Air Positive well nourished, well developed and obese General Appearance ED: well developed Nutritional Appearance: obese HEENT Reports normocephalic, head/scalp atraumatic, TM's clear and moist mucous membranes Negative for trauma Tympanic Membrane ED: Yes TM's clear Eyes PERRL and EOMs intact bilaterally Neck no lymphadenopathy, supple and no JVD Resp normal respiratory effort and clear to auscultation bilaterally Cardio regular rate, regular rhythm and no murmurs GI normal to inspection, nondistended, normoactive bowel sounds and non-tender Palpation: soft Back/Spine no CVA tenderness and normal ROM Extremity normal to inspection General Extremety ED: Negative for edema General Extremity: Negative for edema Neuro oriented x3, CN's II-XII intact bilaterally and no sensory deficits noted Sensorium / Orientation: alert Motor Exam: strength 5/5 throughout Psych mental status grossly normal Mood & Affect: Negative for depressed or tearful Skin no rashes or lesions noted and no wounds MDM MDM MDM Narrative Medical decision making narrative: 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 Urias. She is requested an infusion of pamidronate. I spoke with the pharmacist who acknowledges that this is something we can give in the ED and discharged home. Lab Data Attestation: I reviewed the patient's lab results. Labs: Laboratory Results - last 24 hr 08/23/21 08/23/21 08/23/21 15:00 15:00 15:00 WBC 7.5 RBC 4.90 Hgb 14.4 Hct 44.9 MCV 91.6 MCH 29.4 MCHC 32.1 RDW Std Deviation 51.3 H RDW Coeff of Thao 15.5 H Plt Count 288 MPV 9.5 Immature Gran % (Auto) 0.500 Neut % (Auto) 75.7 H Lymph % (Auto) 10.1 L [place] % (Auto) 11.2 H Eos % (Auto) 2.1 Baso % (Auto) 0.4 Absolute Neuts (auto) 5.7 Absolute Lymphs (auto) 0.76 L Nucleated RBC % 0 Phosphorus 2.1 L Magnesium 2.2 Urine Color Urine Clarity Urine pH Ur Specific [place] Urine Protein Urine Glucose (UA) Urine Ketones Urine Occult Blood Urine Nitrite Urine Bilirubin Urine Urobilinogen Ur Leukocyte Esterase 08/23/21 16:30 WBC RBC Hgb Hct MCV MCH MCHC RDW Std Deviation RDW Coeff of Thao Plt Count MPV Immature Gran % (Auto) Neut % (Auto) Lymph % (Auto) [place] % (Auto) Eos % (Auto) Baso % (Auto) Absolute Neuts (auto) Absolute Lymphs (auto) Nucleated RBC % Phosphorus Magnesium Urine Color Yellow Urine Clarity Clear Urine pH 6.5 Ur Specific [place] 1.015 Urine Protein Negative Urine Glucose (UA) 1000 H Urine Ketones Negative Urine Occult Blood 25 H Urine Nitrite Negative Urine Bilirubin Negative Urine Urobilinogen 1 H Ur Leukocyte Esterase Negative EKG Initial EKG: Attestation: I personally reviewed and interpreted this EKG as follows: Comments: Sinus rhythm with first-degree AV block with a ventricular rate of 64 bpm. QRS 100 ms QTc 412. Prior EKG tracings: available for review Prior: Unchanged Discharge Plan Triage Chief Complaint: Abn Labs ED Provider: Harinder Woods Dx/Rx/DC Orders Clinical Impression: Primary hyperparathyroidism, Hypercalcemia Instructions: Primary Hyperparathyroidism, Hypercalcemia Dc Prescriptions: No Action trazodone 50 mg tablet 50 mg PO QHS PRN (Reason: Sleep) RF: 0 (DME) Handicap Placard See Rx Instructions .ROUTE .MEDSUPPLY Qty: 1 RF: 0 (DME) FreeStyle Tiffanie 2 [place] Misc See Rx Instructions .ROUTE .MEDSUPPLY Qty: 1 RF: 0 (DME) FreeStyle Tiffanie 2 Sensor Kit See Rx Instructions .ROUTE .MEDSUPPLY Qty: 2 RF: 6 (DME) pen needle, diabetic [BD Ultra-Fine Lorie Pen Needle] 32 gauge x 5/32 needle See Rx Instructions .ROUTE .MEDSUPPLY Qty: 360 RF: 5 atorvastatin 40 mg tablet 40 mg PO QHS Qty: 90 RF: 3 Hold Instructions: Hold for 4 days paroxetine HCl 40 mg tablet 40 mg PO DAILY Qty: 90 RF: 3 meclizine 12.5 mg Tablet 12.5 mg PO TID PRN PRN (Reason: vertigo) Qty: 0 RF: 0 fenofibrate micronized 200 mg capsule 200 mg PO DAILY Qty: 30 RF: 12 bisacodyl 10 mg Suppository 10 mg SD DAILY PRN (Reason: Constipation) RF: 0 Enema 19-7 gram/118 mL Enema 118 ml SD DAILY PRN (Reason: Constipation) RF: 0 Humulin R U-500 (Conc) Kwikpen 500 unit/mL (3 mL) Insulin Pen 30 unit SUBCUT DINNER@1700 RF: 0 Humulin R U-500 (Conc) Kwikpen 500 unit/mL (3 mL) Insulin Pen 40 unit SUBCUT BREAKFAST@0800 RF: 0 Humulin R U-500 (Conc) Kwikpen 500 unit/mL (3 mL) Insulin Pen 40 unit SUBCUT LUNCH@1200 RF: 0 furosemide 20 mg tablet 60 mg PO BID RF: 0 acetaminophen 500 mg Tablet 1,000 mg PO Q8 PRN (Reason: pain/fever) RF: 0 magnesium hydroxide [Milk of Magnesia] 400 mg/5 mL Suspension 30 ml PO DAILY PRN (Reason: Constipation) RF: 0 cholecalciferol (vitamin D3) 1,250 mcg (50,000 unit) Capsule 1,250 mcg PO TUFR RF: 0 albuterol sulfate 90 mcg/actuation HFA aerosol inhaler 2 puff INHALATION Q4H PRN PRN (Reason: Sob &/Or Wheezing) Qty: 18 RF: 6 Jardiance 25 mg tablet 25 mg PO DAILY Qty: 30 RF: 6 clopidogrel 75 mg tablet 75 mg PO DAILY Qty: 90 RF: 3 (DME) OneTouch Verio test strips Strip See Rx Instructions .ROUTE .MEDSUPPLY Qty: 100 RF: 12 aspirin 81 mg tablet,chewable 81 mg PO DAILY@0800 Qty: 90 RF: 3 amlodipine 10 mg tablet 10 mg PO DAILY Qty: 90 RF: 4 losartan 25 mg tablet 25 mg PO DAILY Qty: 90 RF: 3 metformin 1,000 mg tablet 1,000 mg PO BIDCM Qty: 180 RF: 3 ranolazine 500 mg tablet extended release 12 hr 500 mg PO BID Qty: 180 RF: 3 potassium chloride 20 mEq tablet,ER particles/crystals 40 meq PO TID 90 Days Qty: 540 RF: 1 nitroglycerin 0.4 mg tablet, sublingual 0.4 mg SUBLINGUAL Q5M PRN (Reason: Chest Pain) Qty: 25 RF: 4 metoprolol succinate 100 mg tablet extended release 24 hr 100 mg PO BID Qty: 180 RF: 3 Primary Care Provider: Hank Negrete Referrals: Mery Raymond MD [STAFF PHYSICIAN] - Disposition Disposition: [facility] Discharge Location: [facility] [place]
[2021-08-23] MEDS: 0.9% Normal Saline 1,000 ML 1000 ML IV (15:10)
[2021-08-23] MEDS: oxyCODONE 5 MG Tablet PO (15:10)
[2021-08-23 15:14] LABS: Absolute Lymphocyte Count 0.76 X10^3/uL (0.83-4.51); Absolute Neutrophil Count 5.7 X10^3/uL (2.0-7.7); Basophil# 0.03 X10^3/uL; Basophil% 0.4 % (0-1); Eosinophil# 0.16 X10^3/uL; Eosinophils% 2.1 % (0-5); Hematocrit 44.9 % (40-54); Hemoglobin 14.4 g/dL (13.0-16.5); Lymphocyte # 0.76 X10^3/ul (0.83-4.51); Lymphocyte % 10.1 % (19-41); Mean Corp Hgb Conc 32.1 g/dL (32-36); Mean Corpuscular Hgb 29.4 pg (27.0-32.0); Mean Corpuscular Volume 91.6 fL (80-94); Mean Platelet Vol. 9.5 fl (6.2-12.0); Monocyte# 0.84 X10^3/uL; Monocyte% 11.2 % (0-10); NRBC Flagged by Analyzer 0 % (0-5); Neutrophil # 5.68 X10^3/uL (2.7-7.7); Neutrophil % 75.7 % (47-70); Platelet Count 288 K/mm3 (150-450); RBC Distribution Width CV 15.5 % (11.6-14.6); RBC Distribution Width SD 51.3 fl (35.1-43.9); White Blood Count 7.5 K/mm3 (4.4-11.0)
[2021-08-23 15:29] LABS: Magnesium 2.2 mg/dL (1.6-2.6)
[2021-08-23 16:11] VITALS: BP 137/61; PULSE 61
[2021-08-23 16:42] LABS: Bacteria 0 SEEN /hpf (None Seen); Mucous, Urine 0 SEEN /hpf (<or=2+); Squamous Epithelial Cells - UA 0 SEEN /hpf (0-5)
[2021-08-23 16:48] LABS: Color, Urine Yellow (Yellow); Glucose, Dipstick 1000 mg/dl (Normal); Ketone-Dipstick Negative (Negative); Leukocyte Esterase-Dipstick Negative /ul (Negative); Nitrite-Dipstick Negative (Negative); Occult Blood-Urine 25 /ul (Negative); Protein-Dipstick Negative (Negative); Specific Gravity, Urine 1.015 (1.002-1.030); Urine Bilirubin Dipstick Negative (Negative); Urine Clarity Clear (Clear); Urine Urobilinogen 1 mg/dl (Normal); Urine pH 6.5 (5.0 - 8.0)
[2021-08-23 17:18] LABS: Phosphorus 2.1 mg/dL (2.5-4.9)
[2021-08-23 17:22] LABS: Red Blood Cells-Urine 0-5 SEEN /hpf (0-5); White Blood Cells 0-5 SEEN /hpf (0-5)
--- NOTE | 2021-08-23 18:44 | NURSING ---
CALLED PHYSICIANS 1836
--- NOTE | 2021-08-23 20:21 | NURSING ---
PHYSICIANS CALLED BACK 2020 30 MIN OUT
--- NOTE | 2021-08-23 20:53 | ED.RN ---
PHYSICIANS ARRIVED 2052
--- NOTE | 2021-08-23 20:58 | ED.RN ---
called report to [place] [facility].
== END 2021-08-23 20:58 | disposition skilled nursing facility (03) ==
PROVIDERS: Emergency Provider Emergency Medicine; PCP Family Medicine; Visit Provider Emergency Medicine
DX: E83.52 Hypercalcemia (principal); E21.0 Primary hyperparathyroidism; E11.9 Type 2 diabetes mellitus without complications; Z79.4 Long term (current) use of insulin; E78.00 Pure hypercholesterolemia, unspecified; I25.10 Atherosclerotic heart disease of native coronary artery without angina pectoris; I10 Essential (primary) hypertension; M19.90 Unspecified osteoarthritis, unspecified site; Z79.899 Other long term (current) drug therapy; Z79.02 Long term (current) use of antithrombotics/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; Z79.82 Long term (current) use of aspirin; G47.33 Obstructive sleep apnea (adult) (pediatric); Z86.718 Personal history of other venous thrombosis and embolism; E66.9 Obesity, unspecified; Z86.711 Personal history of pulmonary embolism
CPT/HCPCS: 36415; 80053; 81001; 82306; 83735; 83970; 84100; 85025; 93005; 96361; 96365; 96366; 99284; J7040; J2430

== ENCOUNTER → 2021-08-23 | Outpatient (CLI) | payer MEDICARE, SELFPAY ==
[2021-05-11 12:06] VITALS: BMI 43.3
[2021-08-23 12:23] LABS: Vitamin D,25 Hydroxy 30.5 ng/mL
[2021-08-23 12:47] LABS: PTHIN 170.6 pg/mL (18.4-80.1)
[2021-08-23 13:03] LABS: AST(SGOT) 32 U/L (15-37); Alanine Aminotransfer ALT/SGPT 65 U/L (16-61); Albumin, Serum 3.8 g/dL (3.2-5.0); Alkaline Phosphatase 90 U/L (45-117); Anion Gap 6 (5-15); BUN 18 mg/dL (7-18); BUN/Creat Ratio 18.3 RATIO (10-20); Calcium,Total 13.2 mg/dL (8.5-10.1); Chloride 104 mmol/L (98-107); Creatinine, Serum 0.98 mg/dL (0.70-1.30); EST Glomerular Filtration Rate 81 mL/min (>60); Est Glom Filt Rate - Afr Amer 98 mL/min (>60); Globulin 3.7 g/dL (2.2-4.2); Glucose 152 mg/dL (74-106); Potassium 4.3 mmol/L (3.5-5.1); Protein, Total 7.5 g/dL (6.4-8.2); Sodium Level 140 mmol/L (136-145)
== END | disposition home or self-care (01) ==
LOC: BIMLAB 09:20
PROVIDERS: PCP Internal Medicine; Referring Provider Nurse Practitioner Family; Visit Provider Nurse Practitioner Family
DX: E83.52 Hypercalcemia (principal)
CPT/HCPCS: 36415; 80053; 82306; 83970

== ENCOUNTER → 2021-10-05 | Outpatient (CLI) | payer MEDICARE, SELFPAY ==
[2021-05-11 12:06] VITALS: BMI 43.3
[2021-10-05 16:29] LABS: Anion Gap 7 (5-15); BUN 20 mg/dL (7-18); BUN/Creat Ratio 20.7 RATIO (10-20); Calcium,Total 12.8 mg/dL (8.5-10.1); Chloride 104 mmol/L (98-107); Creatinine, Serum 0.97 mg/dL (0.70-1.30); EST Glomerular Filtration Rate 83 mL/min (>60); Est Glom Filt Rate - Afr Amer 100 mL/min (>60); Glucose 123 mg/dL (74-106); Potassium 3.7 mmol/L (3.5-5.1); Sodium Level 139 mmol/L (136-145)
[2021-10-06 08:24] LABS: PTHIN 170.8 pg/mL (18.4-80.1)
== END | disposition home or self-care (01) ==
LOC: LAB 14:03
PROVIDERS: Internal Medicine Endocrinology, Diabetes & Metabolism; PCP Internal Medicine; Referring Provider Physician Assistant Medical; Visit Provider Physician Assistant Medical
DX: E55.9 Vitamin D deficiency, unspecified (principal)
CPT/HCPCS: 36415; 80048; 82306; 82310; 83970

== ENCOUNTER 2021-10-10 20:24 | Observation (INO) | payer MEDICARE, SELFPAY ==
[2021-05-11 12:06] VITALS: BMI 43.3
[2021-10-10 20:26] VITALS: PULSE 17; RESP 20; TEMP 36.6; O2SAT 98; BMI 38.5
--- NOTE | 2021-10-10 21:01 | EKG12_ITS ---
Test Reason : CP Blood Pressure : / mmHG Vent. Rate : 081 BPM Atrial Rate : 081 BPM P-R Int : 204 ms QRS Dur : 104 ms QT Int : 358 ms P-R-T Axes : 063 001 087 degrees QTc Int : 415 ms Sinus rhythm with Premature atrial complexes Septal infarct , age undetermined Abnormal ECG Confirmed by LIZZIE PIZANO, JEET ([id number]), communications editor NAZ NORIEGA ([id number]) on 10/12/2021 9:51:10 AM Referred By: PL Confirmed By:JEET SAMUEL MD
--- NOTE | 2021-10-10 21:04 | ED.VIS.CHEST ---
HPI History of Present Illness Chief Complaint: Chest Pain Informant: patient Narrative Narrative: Patient presents with primary complaint of chest pain. Patient's story takes quite some time to develop. It changes back and forth a little bit. He hesitates with all his answers. The best I have is the summary that follows. Patient states he started to getting episodes of chest pain on Monday he thinks. They would last up to 45 minutes but he is not sure. Nitroglycerin would take the pain away. The first episode he had no other symptoms. But since then he has had occasional episodes of dyspnea. He has gotten nauseated and he did get clammy once. He is also been having headaches off and on. The symptoms were all worse today. He thinks he might have had fevers but not sure. He does have myalgias mostly across the shoulders. He has had some mild diarrhea without blood. No vomiting. He has been coughing but not bringing up sputum or blood. He was exposed to a nephew who had COVID but evidently he was cleared before coming over to his house recently. Patient has had 2 COVID vaccines and one booster. Patient states he has been taking his meds. When I ask him if he has had trouble filling any he says yes. He thinks atorvastatin and vitamin D are the ones he has not been able to get. But I get the impression there might be more but I cannot get this from him. [facility] Medical History Abnormal chest xray Acquired left ventricular hypertrophy Adult failure to thrive Arthritis Atherosclerosis of coronary artery of [place] heart without angina pectoris Chest discomfort Chronic hypoxemic respiratory failure Chronic pain of both knees Colon cancer screening Debility Diabetes Diabetes Dyspnea on exertion Epistaxis Essential (primary) hypertension Fatigue Flu vaccine need Generalized weakness Health care maintenance History of DVT (deep vein thrombosis) History of pulmonary embolism Hypercalcemia Hypercalcemia Hyperparathyroidism Hypertension Hypertriglyceridemia Hypoxia Irregular heart beat Morbid obesity with BMI of 40.0-44.9, adult Near syncope Obesity FAVIAN (obstructive sleep apnea) Osteoarthritis Pulmonary embolism Pure hypercholesterolemia Seizures Type 2 diabetes mellitus Home Medications albuterol sulfate 90 mcg/actuation aerosol inhaler 2 puff inhalation Q4H PRN PRN Sob &/Or Wheezing #18 grams 04/08/19 [Rx Last Taken 10/22/19] trazodone 50 mg tablet 50 mg PO QHS PRN Sleep 01/13/20 [History Last Taken 08/10/21] Handicap Placard #1 ea 04/08/20 [Rx Last Taken Unknown] blood sugar diagnostic ([employer] Verio test strips) #100 ea 11/23/20 [Rx Last Taken Unknown] aspirin 81 mg chewable tablet 81 mg PO DAILY@0800 HEART HEALTH #90 tabs 11/25/20 [Rx Last Taken 08/23/21] amlodipine 10 mg tablet 10 mg PO DAILY BLOOD PRESSURE #90 tabs 12/18/20 [Rx Last Taken 08/23/21] losartan 25 mg tablet 25 mg PO DAILY #90 tabs 01/12/21 [Rx Last Taken 08/23/21] metformin 1,000 mg tablet 1,000 mg PO BIDCM DIABETES #180 tabs 01/12/21 [Rx Last Taken 08/23/21] ranolazine 500 mg tablet,extended release,12 hr 500 mg PO BID angina #180 tabs 02/04/21 [Rx Last Taken 08/23/21] flash glucose scanning reader ([employer] InnovationsStyle Tiffanie 2 [place]) #1 ea 02/16/21 [Rx Last Taken Unknown] flash glucose sensor (FreeStyle Tiffanie 2 Sensor) #2 ea 02/16/21 [Rx Last Taken Unknown] pen needle, diabetic 32 gauge x 5/32 (BD Ultra-Fine Lorie Pen Needle) #360 ea 02/16/21 [Rx Last Taken Unknown] paroxetine HCl 40 mg tablet 40 mg PO DAILY depression #90 tabs 07/08/21 [Rx Last Taken 08/23/21] fenofibrate micronized 200 mg capsule 200 mg PO DAILY #30 caps 07/30/21 [Rx Last Taken 08/23/21] metoprolol succinate 100 mg tablet,extended release 24 hr 100 mg PO BID BLOOD PRESSURE #180 tabs 08/09/21 [Rx Last Taken 08/23/21] acetaminophen 500 mg tablet 1,000 mg PO Q8 PRN pain/fever 08/23/21 [History Last Taken 08/20/21] bisacodyl 10 mg rectal suppository 10 mg PA DAILY PRN Constipation 08/23/21 [History Last Taken Unknown] magnesium hydroxide 400 mg/5 mL oral suspension (Milk of Magnesia) 30 ml PO DAILY PRN Constipation 08/23/21 [History Last Taken Unknown] sodium phosphates 19 gram-7 gram/118 mL enema (Enema) 118 ml PA DAILY PRN Constipation 08/23/21 [History Last Taken Unknown] potassium chloride 20 mEq tablet,extended release(part/cryst) 40 meq PO TID potassium 90 days #540 tabs 08/24/21 [Rx Last Taken Unknown] furosemide 20 mg tablet 60 mg PO BID 90 days #540 tabs 08/27/21 [Rx Last Taken Unknown] dulaglutide 1.5 mg/0.5 mL subcutaneous pen injector (Trulicity) 1.5 mg subcut QWEEK 09/01/21 [History Last Taken Unknown] insulin regular hum U-500 conc (Humulin R U-500 (Conc) Insulin Kwikpen) 45 unit (0.09 mL) subcut .TIDCM #8.1 mL 09/02/21 [Rx Last Taken Unknown] clopidogrel 75 mg tablet 75 mg PO DAILY BLOOD THINNER #90 tabs 09/27/21 [Rx Last Taken Unknown] nitroglycerin 0.4 mg sublingual tablet 0.4 mg sublingual Q5M PRN Chest Pain #25 tabs 09/27/21 [Rx Last Taken Unknown] atorvastatin 40 mg tablet 40 mg PO QHS CHOLESTEROL #90 tabs 10/05/21 [Rx Last Taken Unknown] hydrocodone-acetaminophen 5-325mg 5mg-325mg 1 tab PO BID PRN Pain 10/05/21 [History Last Taken Unknown] meclizine 12.5 mg tablet 12.5 mg PO TID PRN PRN vertigo #10 tabs 10/05/21 [Rx Last Taken Unknown] cholecalciferol (vitamin D3) 1,250 mcg (50,000 unit) capsule 1,250 mcg PO TUFR #24 caps 10/06/21 [Rx Last Taken Unknown] Allergy/AdvReac Type Severity Reaction Status Date / Time No Known Allergies Allergy Verified 10/05/21 12:56 Family History Mother Colon cancer Sister CAD (coronary artery disease) CABG x 5 Diabetes Myocardial infarction, Onset Age: 67 Father Crohns disease Surgical History History of appendectomy History of appendectomy 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 Smoking Status: Never smoker second hand exposure: Yes alcohol intake: former year quit: 2003 details: Sober since 2003. substance use type: former substance user Date of last use: 04/10/2004 and marijuana caffeine: Yes Type: carbonated beverages Number of servings: 2 and coffee Number of servings: 2 what type of physical activity do you participate in: none ROS ROS ED Constitutional Constitutional ED: Reports chills and subjective Eyes Eyes: Denies change in vision ENT ENT ED: Denies rhinorrhea or sore throat Cardiovascular Cardiovascular: Reports as per HPI and chest pain; Denies palpitations or racing heartbeat Respiratory/Chest Respiratory/Chest: Reports cough and dyspnea; Denies sputum Gastrointestinal Gastrointestinal: Reports diarrhea and nausea; Denies abdominal pain or vomiting Genitourinary Genitourinary ED: Denies dysuria Musculoskeletal Musculoskeletal: Reports myalgias Integumentary Denies abscess Neurologic Neurologic: Reports headache(s); Denies paresthesias or weakness Endocrine Endocrinology: Denies polydipsia or polyuria Hematologic/Lymphatic Hematologic/Lymphatic: Reports other Details: Patient is on Plavix and aspirin. It sounds like he has been taking these ; Denies easy bleeding or easy bruising Allergic/Immunologic Allergic/Immunologic ED: Denies urticaria EXAM Physical Exam Const Vital Signs: 10/10/21 20:26 10/10/21 20:31 10/10/21 21:05 Temperature 97.8 F Temperature Source Temporal Pulse Rate 17 L Respiratory Rate 20 H Respiratory Effort Normal Non-Labored Blood Pressure Blood Pressure Mean Pulse Ox 98 Oxygen Delivery Method Room Air Room Air 10/10/21 21:33 10/10/21 22:00 10/10/21 23:00 Temperature Temperature Source Pulse Rate 81 80 76 Respiratory Rate 24 H 22 H 19 H Respiratory Effort Blood Pressure 167/94 H 146/77 H 150/91 H Blood Pressure Mean 118 100 110 Pulse Ox 95 95 96 Oxygen Delivery Method Room Air Room Air Room Air Positive well nourished and obese General Appearance ED: NAD Nutritional Appearance: obese HEENT Reports moist mucous membranes HEENT Narrative: No temporal artery tenderness Eyes EOMs intact bilaterally General Eye ED: Negative for scleral icterus Neck no JVD Chest Wall inspection of chest normal and palpation of chest normal Resp normal respiratory effort and clear to auscultation bilaterally Resp Narrative: Lungs are quite clear to auscultation. No wheezes rales or rhonchi. Saturations are about 99% on room air showing no hypoxia. Auscultation: Negative for rales, rhonchi or wheezes Cardio regular rate and regular rhythm GI normal to inspection, nondistended, normoactive bowel sounds, soft to palpation and non-tender Back/Spine no CVA tenderness Extremity normal to inspection Neuro Neuro Narrative: Patient is oriented x3. But he states he feels like he is just not thinking real well. He takes a fair amount of time to answer questions and his answers do vary a little bit mostly as to the specific time of onset and duration of symptoms. Sensorium / Orientation: awake and alert Psych mental status grossly normal Attitude: No agitated Mood & Affect: Negative for depressed or anxious Skin no rashes or lesions noted Heart Score History: Moderately Suspicious ECG: Nonspecific Repolarization Age: >/= 65 years Risk Factors: >/= 3 Risk Factors or History of CAD Troponin: </= Normal Limit Score: 6 MDM MDM MDM Narrative Medical decision making narrative: Patient CBC shows no marked abnormalities. Electrolytes are overall good. However, his calcium is 13.1 which is relatively high even for him. Troponin was over 6. BNP was normal. Magnesium was good. Chest x-ray showed no acute process but there are degenerative changes I talked with the patient. He states his calcium is high and they noted that. He was seen here once and given fluids. It looks like according to his chart he was on Lasix and vitamin D for the hypercalcemia. He states he is going to be having an ultrasound of his neck. He has an appointment to see a surgeon. It sounds like a biopsy has not been done. He states he thinks it is probably cancer but people just have not told him yet. But he also feels that he gets confused at times. He was in rehab recently for diffuse arthralgias and weakness. He is home now. I think this confusion his aches and pains in his symptoms may be due to the hypercalcemia. Looks like this has not been completely sorted out as to the cause and treatment plan yet. But it also may be that he has not followed up. I do think he needs to come in for further management. He has had chest pain with a history of heart disease and he has symptoms consistent with symptomatic hypercalcemia. Lab Data Attestation: I reviewed the patient's lab results. Labs: Laboratory Results - last 24 hr 10/10/21 10/10/21 10/10/21 21:10 21:10 21:10 WBC 7.5 RBC 5.10 Hgb 15.2 Hct 46.8 MCV 91.8 MCH 29.8 MCHC 32.5 RDW Std Deviation 51.2 H RDW Coeff of Thao 15.2 H Plt Count 273 MPV 10.0 Immature Gran % (Auto) 0.700 Neut % (Auto) 70.5 H Lymph % (Auto) 13.0 L [place] % (Auto) 12.8 H Eos % (Auto) 2.5 Baso % (Auto) 0.5 Absolute Neuts (auto) 5.3 Absolute Lymphs (auto) 0.98 Nucleated RBC % 0 Sodium 139 Potassium 4.2 Chloride 106 Carbon Dioxide 26.0 Anion Gap 7 BUN 17 Creatinine 1.04 Estim Creat Clear Calc 74.09 Est GFR (MDRD) Af Amer 92 Est GFR (MDRD) Non-Af 76 BUN/Creatinine Ratio 16.3 Glucose 115 H Calcium 13.1 H* Magnesium 2.2 Troponin I High Sens 26 B-Natriuretic Peptide 77.2 Radiography Diagnostic Testing: Clinical Impression(s) from Imaging Studies Chest X-Ray 10/10/21 21:15 IMPRESSION: Degenerative changes, as described above. No demonstrated acute cardiopulmonary process. No major interval change. Electronically Signed: Jesus King DO at 21:53 EDT Reading Location ID and State: [facility] [employer] Tel [phone], Service support , Brain CT 10/10/21 21:22 IMPRESSION: Chronic involutional changes without evidence of acute intracranial or calvarial abnormality. Electronically Signed: Jesus King DO at 22:01 EDT Reading Location ID and State: [facility] Tel [phone], Service support , Discharge Plan Dx/Rx/DC Orders Clinical Impression: Hypercalcemia, Chest pain Disposition Disposition: Acute Care Hospital [facility]
--- NOTE | 2021-10-10 21:15 | RAD_ITS ---
STUDY: X-RAY CHEST REASON FOR EXAM: Male, 65 years old. Chest pain. TECHNIQUE: Single AP portable view of the chest. COMPARISON: 05/19/2021 FINDINGS: Stable elevation of the right hemidiaphragm. There is no acute infiltrate or mass. There is no demonstrated pleural abnormality. Normal size heart. Normal mediastinum and sue. Normal visualized pulmonary arteries. Normal visualized aortic arch and descending thoracic aorta. There are diffuse degenerative changes of the visualized thoracic spine. There is degenerative osteoarthritis of the bilateral shoulders. There is no demonstrated abnormality of the visualized soft tissue structures of the upper abdomen. RAD/Chest 1 View (Portable) IMPRESSION: Degenerative changes, as described above. No demonstrated acute cardiopulmonary process. No major interval change. Electronically Signed: Jesus King DO at 21:53 EDT ,
[2021-10-10 21:20] LABS: Absolute Lymphocyte Count 0.98 X10^3/uL (0.83-4.51); Absolute Neutrophil Count 5.3 X10^3/uL (2.0-7.7); Basophil# 0.04 X10^3/uL; Basophil% 0.5 % (0-1); Eosinophil# 0.19 X10^3/uL; Eosinophils% 2.5 % (0-5); Hematocrit 46.8 % (40-54); Hemoglobin 15.2 g/dL (13.0-16.5); Lymphocyte # 0.98 X10^3/ul (0.83-4.51); Mean Corp Hgb Conc 32.5 g/dL (32-36); Mean Corpuscular Hgb 29.8 pg (27.0-32.0); Mean Corpuscular Volume 91.8 fL (80-94); Monocyte# 0.96 X10^3/uL; Monocyte% 12.8 % (0-10); NRBC Flagged by Analyzer 0 % (0-5); Neutrophil % 70.5 % (47-70); Platelet Count 273 K/mm3 (150-450); RBC Distribution Width CV 15.2 % (11.6-14.6); RBC Distribution Width SD 51.2 fl (35.1-43.9); White Blood Count 7.5 K/mm3 (4.4-11.0)
--- NOTE | 2021-10-10 21:22 | CT_ITS ---
STUDY: CT BRAIN WITHOUT CONTRAST REASON FOR EXAM: Male, 65 years old. Headache. RADIATION DOSAGE (If Supplied By Facility): CTDIvol = ( 47.06 ) mGy, DLP = ( 943.26 ) mGycm TECHNIQUE: Transaxial CT imaging of the brain was performed without administration of intravenous contrast material. Individualized dose optimization techniques were used for this CT. COMPARISON: 05/18/2021. FINDINGS: Normal soft tissue structures. Normal calvarium. There is mild cerebral atrophy with widening of the extra-axial spaces and ventricular dilatation. There are areas of decreased attenuation within the white matter tracts of the supratentorial brain, consistent with microvascular disease changes. Normal basal ganglia and thalami. Normal brainstem. Normal cerebellum. There is no intracranial hemorrhage. There are no findings of an acute ischemic infarction. There is evidence of prior sinus surgery. CT/Brain/Head without Contrast IMPRESSION: Chronic involutional changes without evidence of acute intracranial or calvarial abnormality. Electronically Signed: Jesus King DO at 22:01 EDT ,
[2021-10-10 21:33] VITALS: BP 167/94; PULSE 81; RESP 24; O2SAT 95
[2021-10-10] MEDS: Aspirin 81 MG TAB.CHEW 324 MG PO (21:33)
[2021-10-10 21:39] LABS: BNP,B-Type NATRIURETIC PEPTIDE 77.2 pg/mL (0-100)
[2021-10-10 21:46] LABS: Anion Gap 7 (5-15); BUN 17 mg/dL (7-18); BUN/Creat Ratio 16.3 RATIO (10-20); Calcium,Total 13.1 mg/dL (8.5-10.1); Chloride 106 mmol/L (98-107); Creatinine, Serum 1.04 mg/dL (0.70-1.30); EST Glomerular Filtration Rate 76 mL/min (>60); Est Glom Filt Rate - Afr Amer 92 mL/min (>60); Estimated Creatinine Clearance 74.09 ml/min; Glucose 115 mg/dL (74-106); Magnesium 2.2 mg/dL (1.6-2.6); Potassium 4.2 mmol/L (3.5-5.1); Sodium Level 139 mmol/L (136-145); Troponin-I HS (w/2H Reflex) 26 pg/mL (3.0-78.0)
[2021-10-10 22:00] VITALS: BP 146/77; PULSE 80; RESP 22; O2SAT 95
[2021-10-10 23:00] VITALS: BP 150/91; PULSE 76; RESP 19; O2SAT 96
[2021-10-10 23:17] LABS: Reflex Troponin-HS? (from REC) Y
--- NOTE | 2021-10-10 23:29 | HP.PCM.HOS_ITS ---
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 Patient reports also intermittent headaches as well as myalgias although primarily in his shoulders in addition to loose stool x1 with occasional cough. He does report that he was exposed to a nephew had COVID. He has had 2 COVID vaccines and one booster. Patient does report that he was supposed to have a stress test previously but missed it secondary to his most recent hospitalization. He does report that he is follow-up with Dr. Villalta for surgical intervention for his hyperparathyroidism and his upcoming thyroid ult rasound on 10/18 in addition to follow-up with his PCP on 10/13/2021. He said that he had missed several visits because he did not have rides but this has been corrected. Work-up in the ED included T97.8, heart rate 81, BP 167/94, respiratory rate 20, 98% on room air, with WC 7.5, hemoglobin 15.2, platelet 273 without marked shift, BMP with glucose 115, calcium 13.1, magnesium 2.2, troponin 26, BNP 77.2, chest x-ray with degenerative changes with no acute cardiopulmonary findings, CT of the brain with chronic involutional changes without any acute evidence of acute intracranial or calvarial abnormality, EKG with SR with nonspecific changes without acute evidence of ischemia with no marked change from prior, COVID rapid negative. [facility] Medical History Abnormal chest xray Acquired left ventricular hypertrophy Adult failure to thrive Arthritis Atherosclerosis of coronary artery of [place] heart without angina pectoris Chest discomfort Chronic hypoxemic respiratory failure Chronic pain of both knees Colon cancer screening Debility Diabetes Diabetes Dyspnea on exertion Epistaxis Essential (primary) hypertension Fatigue Flu vaccine need Generalized weakness Health care maintenance History of DVT (deep vein thrombosis) History of pulmonary embolism Hypercalcemia Hypercalcemia Hyperparathyroidism Hypertension Hypertriglyceridemia Hypoxia Irregular heart beat Morbid obesity with BMI of 40.0-44.9, adult Near syncope Obesity FAVIAN (obstructive sleep apnea) Osteoarthritis Pulmonary embolism Pure hypercholesterolemia Seizures Type 2 diabetes mellitus Home Medications albuterol sulfate 90 mcg/actuation aerosol inhaler 2 puff inhalation Q4H PRN PRN Sob &/Or Wheezing #18 grams 04/08/19 [Rx Last Taken 10/22/19] trazodone 50 mg tablet 50 mg PO QHS PRN Sleep 01/13/20 [History Last Taken 08/10/21] Handicap Placard #1 ea 04/08/20 [Rx Last Taken Unknown] blood sugar diagnostic (Trovituch Verio test strips) #100 ea 11/23/20 [Rx Last T aken Unknown] aspirin 81 mg chewable tablet 81 mg PO DAILY@0800 HEART HEALTH #90 tabs 11/25/20 [Rx Last Taken 08/23/21] amlodipine 10 mg tablet 10 mg PO DAILY BLOOD PRESSURE #90 tabs 12/18/20 [Rx Last Taken 08/23/21] losartan 25 mg tablet 25 mg PO DAILY #90 tabs 01/12/21 [Rx Last Taken 08/23/21] metformin 1,000 mg tablet 1,000 mg PO BIDCM DIABETES #180 tabs 01/12/21 [Rx Last Taken 08/23/21] ranolazine 500 mg tablet,extended release,12 hr 500 mg PO BID angina #180 tabs 02/04/21 [Rx Last Taken 08/23/21] flash glucose scanning reader (iHookup SocialStyle Tiffanie 2 Mobile) #1 ea 02/16/21 [Rx Last Taken Unknown] flash glucose sensor (FreeStyle Tiffanie 2 Sensor) #2 ea 02/16/21 [Rx Last Taken Unknown] pen needle, diabetic 32 gauge x 5/32 (BD Ultra-Fine Lorie Pen Needle) #360 ea 02/16/21 [Rx Last Taken Unknown] paroxetine HCl 40 mg tablet 40 mg PO DAILY depression #90 tabs 07/08/21 [Rx Last Taken 08/23/21] fenofibrate micronized 200 mg capsule 200 mg PO DAILY #30 caps 07/30/21 [Rx Last Taken 08/23/21] metoprolol succinate 100 mg tablet,extended release 24 hr 100 mg PO BID BLOOD PRESSURE #180 tabs 08/09/21 [Rx Last Taken 08/23/21] acetaminophen 500 mg tablet 1,000 mg PO Q8 PRN pain/fever 08/23/21 [History Last Taken 08/20/21] bisacodyl 10 mg rectal suppository 10 mg CO DAILY PRN Constipation 08/23/21 [ History Last Taken Unknown] magnesium hydroxide 400 mg/5 mL oral suspension (Milk of Magnesia) 30 ml PO DAILY PRN Constipation 08/23/21 [History Last Taken Unknown] sodium phosphates 19 gram-7 gram/118 mL enema (Enema) 118 ml CO DAILY PRN Constipation 08/23/21 [History Last Taken Unknown] potassium chloride 20 mEq tablet,extended release(part/cryst) 40 meq PO TID potassium 90 days #540 tabs 08/24/21 [Rx Last Taken Unknown] furosemide 20 mg tablet 60 mg PO BID 90 days #540 tabs 08/27/21 [Rx Last Taken Unknown] dulaglutide 1.5 mg/0.5 mL subcutaneous pen injector (Trulicity) 1.5 mg subcut QWEEK 09/01/21 [History Last Taken Unknown] insulin regular hum U-500 conc (Humulin R U-500 (Conc) Insulin Kwikpen) 45 unit (0.09 mL) subcut .TIDCM #8.1 mL 09/02/21 [Rx Last Taken Unknown] clopidogrel 75 mg tablet 75 mg PO DAILY BLOOD THINNER #90 tabs 09/27/21 [Rx Last Taken Unknown] nitroglycerin 0.4 mg sublingual tablet 0.4 mg sublingual Q5M PRN Chest Pain #25 tabs 09/27/21 [Rx Last Taken Unknown] atorvastatin 40 mg tablet 40 mg PO QHS CHOLESTEROL #90 tabs 10/05/21 [Rx Last Taken Unknown] hydrocodone-acetaminophen 5-325mg 5mg-325mg 1 tab PO BID PRN Pain 10/05/21 [History Last Taken Unknown] meclizine 12.5 mg tablet 12.5 mg PO TID PRN PRN vertigo #10 tabs 10/05/21 [Rx Last Taken Unknown] cholecalciferol (vitamin D3) 1,250 mcg (50,000 unit) capsule 1,250 mcg PO TUFR #24 caps 10/06/21 [Rx Last Taken Unknown] Allergy/AdvReac Type Severity Reaction Status Date / Time No Known Allergies Allergy Verified 10/05/21 12:56 Family History Mother Colon cancer Sister CAD (coronary artery disease) CABG x 5 Diabetes Myocardial infarction, Onset Age: 67 Father Crohns disease Surgical History History of appendectomy History of appendectomy 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) History of coronary artery stent placement (05/11/16) History of eye surgery History of hip replacement History of intestinal surgery History of knee surgery History of tonsillectomy and adenoidectomy Social History household members: none housing: apartment other: Hx working in [employer]. Smoking Status: Never smoker second hand exposure: Yes alcohol intake: former year quit: 2003 details: Sober since 2003. substance use type: former substance user Date of last use: 04/10/2004 and marijuana caffeine: Yes Type: carbonated beverages Number of servings: 2 and coffee Number of servings: 2 what type of physical activity do you participate in: none ROS ROS Narrative Admission Review of Systems: CONSTITUTIONAL: No weight loss, fever, chills, + weakness or fatigue. HEENT: + RAE, congestion. Eyes: No visual loss, blurred vision, double vision or yellow sclerae. Ears, Nose, Throat: No hearing loss, sneezing, runny nose or sore throat. SKIN: No rash or itching, lesions, wounds. CARDIOVASCULAR: + chest pain, chest pressure or chest discomfort, palpitations, No edema, orthopnea, syncopal events. RESPIRATORY: No shortness of breath, cough or sputum, wheezing, hemoptysis. GASTROINTESTINAL: + anorexia, nausea x 1, vomiting x 1, loose stool x 1, No abdominal pain, melena, BRBPR. GENITOURINARY: No dysuria, frequency, urgency or retention. NEUROLOGICAL: + headache, No dizziness, syncope, paralysis, ataxia, numbness or tingling in the extremities, focal weakness, change in bowel or bladder control, seizure. MUSCULOSKELETAL: + muscle, back pain, joint pain or stiffness. HEMATOLOGIC: No anemia, bleeding or bruising. LYMPHATICS: No enlarged nodes. No history of splenectomy. PSYCHIATRIC: + history of depression or anxiety. ENDOCRINOLOGIC: + reports of sweating, cold or heat intolerance. No polyuria or polydipsia. ALLERGIES: No history of asthma, hives, eczema or rhinitis. Vital Signs Vital Signs Vital Signs: 10/10/21 20:26 10/10/21 20:31 10/10/21 21:05 Temperature 97.8 F Temperature Source Temporal Pulse Rate 17 L Respiratory Rate 20 H Respiratory Effort Normal Non-Labored Blood Pressure Blood Pressure Mean Pulse Ox 98 Oxygen Delivery Method Room Air Room Air 10/10/21 21:33 Temperature Temperature Source Pulse Rate 81 Respiratory Rate 24 H Respiratory Effort Blood Pressure 167/94 H Blood Pressure Mean 118 Pulse Ox 95 Oxygen Delivery Method Room Air Weight Weight: 268 lb 4.841 oz Body Mass Index (BMI) 38.5 Physical Exam Narrative Physical Examination: General: Awake, alert, oriented x 3 and cooperative, seated upright in the ED bed, denies any current chest discomfort but states that it has been up to 4-10 in severity. Skin: Normal color, normal turgor, no icterus, no cyanosis except chronic bilateral lower extremity lymphedema with chronic venous stasis skin changes. HEENT: AT/NC, EOMI, PERRLA, mildly dry MM, no carotid bruits or JVD noted. Lungs: Mildly diminished, greater bases, appropriate effort, no rales, ronchi or wheezing. Heart: Currently regular rate and rhythm; no gallop, rub audible. Abdomen: Soft, obese, NTTP, ND, distant normal BS, no HSM. Extremities: No cyanosis, no clubbing, chronic bilateral lower extremity lymphedema with chronic venous stasis skin changes. Neurological: Patient awake, alert, oriented as noted, cognitive function intact; pupils equally reactive to light and accommodation, cranial nerves II- XII grossly normal, moving all 4 extremities, no focal deficits, strength moderately global decreased Psychiatric: Affect appears mildly flat, no acute evidence of depressive or anxiety feelings. Results Lab / Micro Data Result Diagrams: 10/10/21 21:10 10/10/21 21:10 Labs: Laboratory Results - last 24 hr 10/10/21 21:10: WBC 7.5, RBC 5.10, Hgb 15.2, Hct 46.8, MCV 91.8, MCH 29.8, MCHC 32.5, RDW Std Deviation 51.2 H, RDW Coeff of Thao 15.2 H, Plt Count 273, MPV 10.0, Immature Gran % (Auto) 0.700, Neut % (Auto) 70.5 H, Lymph % (Auto) 13.0 L, Kleberg % (Auto) 12.8 H, Eos % (Auto) 2.5, Baso % (Auto) 0.5, Absolute Neuts (auto) 5.3, Absolute Lymphs (auto) 0.98, Nucleated RBC % 0 10/10/21 21:10: Sodium 139, Potassium 4.2, Chloride 106, Carbon Dioxide 26.0, Anion Gap 7, BUN 17, Creatinine 1.04, Estim Creat Clear Calc 74.09, Est GFR (MDRD) Af Amer 92, Est GFR (MDRD) Non-Af 76, BUN/Creatinine Ratio 16.3, Glucose 115 H, Calcium 13.1 H*, Magnesium 2.2, Troponin I High Sens 26 10/10/21 21:10: B-Natriuretic Peptide 77.2 Micro: Microbiology 10/10/21 21:10 Nasal Secretion SARS-CoV-2 & FLU Antigen (Rapid) - Final Radiology Impression Chest X-Ray 10/10/21 21:15 IMPRESSION: Degenerative changes, as described above. No demonstrated acute cardiopulmonary process. No major interval change. Electronically Signed: Jesus King DO at 21:53 EDT Reading Location ID and State: [facility] / [place] Tel [phone], Service support , Brain CT 10/10/21 21:22 IMPRESSION: Chronic involutional changes without evidence of acute intracranial or calvarial abnormality. 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 #1. Chest Pain: EKG with SR with nonspecific changes without acute evidence of ischemia with no marked change from prior, CXR w/ no acute cardiopulmonary finding, initial trop 26. Will admit to PCU, place on a monitored bed to assure no acute myocardial infarction with serial cardiac enzymes and EKGs. If repeat serial EKGs and enzymes remain unremarkable will pursue AM cardiac stress testing to be cautious but suspect his symptoms are in large part secondary to his hypercalcemia. FLP in AM. Mag obtained in the ED and noted to be 2.2. ASA, NG, morphine. #2. Hypercalcemia, known with hyperparathyroidism: Lengthy discussion with patient and he reports that he has been diagnosed with hyperparathyroidism with plan follow-up with Dr. Villalta on 10/21/2021, plan thyroid ultrasound on 10/18/2021 and follow-up with his PCP on 10/13/2021. We will hold off on repeat work-up for hypercalcemia at this time. Will administer 2 L normal saline and repeat CMP in a.m. as certainly his symptoms in large part may secondary to hypercalcemia. #3. CAD: s/p PCI PTCA/DANIEL LAD 2016, last stress testing 2018, recent evaluation 10/05/21 per his Cardiology team, will continue aspirin, Plavix, atorvastatin, metoprolol, losartan regimen. #4. Reported Hx Chronic hypoxic respiratory failure (3L NCx): Patient prior history of noted chronic 3L NC supplementation w/ hx working in [employer] plant but unclear underlying pulmonary disease, currently maintained appropriate on room air. Encourage follow-up with pulmonary medicine as previously arranged. CXR without marked chronic findings of note. #5. Hypertension: Continue home regimen including metoprolol, losartan with hold parameters as needed, PRN hydralazine. #6. Hyperlipidemia: Continue home statin regimen. AM FLP. #7. Obesity: Weight loss and lifestyle changes encouraged. #8. Diabetes mellitus type II: Hold oral home regimen, continue home insulin regimen, ADA diet, accu checks w/ ISS. #9. Anxiety and depression: We will continue patient home paroxetine regimen. #10. Obesity: Weight loss and lifestyle changes encouraged. #11. History VTE, PE: Previous history, no longer anticoagulated. #12. FAVIAN: CPAP nightly. #13. DVT prophylaxis: SCDs, Lovenox. #14. CODE status: Patient HCPOA and living will is not in place. Encouraged him strongly to consider setting this up. Discussed CODE status at length including difference between FULL code, DNR-CCA and DNR-CC status. Following discussions about the differences in these status, requested Full Code status. Advanced Care Planning Face to Face Time: 16 minutes. Charges/Coding Visit Charges OBSV E&M: 22259 Initial observation care L3 Procedures Hospitalists Procedures: 63296 Advncd Care Plan 30 Min
[2021-10-10] MEDS: HYDROcodone Bitartrate/Apap 5/325 Tablet PO (23:56)
[2021-10-10 23:57] VITALS: BP 152/85; PULSE 75; RESP 18; TEMP 36.6; O2SAT 96
[2021-10-11] VITALS (14 sets, daily range): BP systolic 155–169; BP diastolic 72–87; PULSE 58–87; RESP 16–18; TEMP 36.1–36.7; O2SAT 96–99; BMI 38.5
[2021-10-11 00:04] LABS: Troponin-I HS 37 pg/mL (3.0-78.0)
[2021-10-11 00:48] LABS: Magnesium 2.1 mg/dL (1.6-2.6)
--- NOTE | 2021-10-11 01:13 | EKG12_ITS ---
Test Reason : PRE CI Blood Pressure : / mmHG Vent. Rate : 070 BPM Atrial Rate : 070 BPM P-R Int : 234 ms QRS Dur : 098 ms QT Int : 402 ms P-R-T Axes : 068 -07 034 degrees QTc Int : 434 ms Sinus rhythm with 1st degree A-V block Septal infarct , age undetermined Abnormal ECG Confirmed by LIZZIE PIZANO, JEET ([id number]), society editor NAZ NORIEGA ([id number]) on 10/13/2021 8:24:19 AM Referred By: STACIA Confirmed By:JEET SAMUEL MD
[2021-10-11] MEDS: 0.9% Normal Saline 1,000 ML 999 ML IV ×2 (01:21→02:24)
[2021-10-11] MEDS: 0.9% Saline Lock 10 ML Syringe IV ×2 (01:25→16:58)
[2021-10-11] MEDS: 0.9% Normal Saline 1,000 ML 125 ML IV ×3 (03:26→21:55)
[2021-10-11 03:53] LABS: Absolute Lymphocyte Count 0.92 X10^3/uL (0.83-4.51); Absolute Neutrophil Count 4.7 X10^3/uL (2.0-7.7); Basophil# 0.04 X10^3/uL; Basophil% 0.6 % (0-1); Eosinophil# 0.22 X10^3/uL; Eosinophils% 3.2 % (0-5); Hematocrit 43.4 % (40-54); Hemoglobin 13.8 g/dL (13.0-16.5); Lymphocyte # 0.92 X10^3/ul (0.83-4.51); Lymphocyte % 13.3 % (19-41); Mean Corp Hgb Conc 31.8 g/dL (32-36); Mean Corpuscular Hgb 29.3 pg (27.0-32.0); Mean Corpuscular Volume 92.1 fL (80-94); Mean Platelet Vol. 9.8 fl (6.2-12.0); Monocyte# 0.99 X10^3/uL; Monocyte% 14.3 % (0-10); NRBC Flagged by Analyzer 0 % (0-5); Neutrophil # 4.72 X10^3/uL (2.7-7.7); Platelet Count 240 K/mm3 (150-450); RBC Distribution Width CV 15.3 % (11.6-14.6); RBC Distribution Width SD 51.8 fl (35.1-43.9); Red Blood Count 4.71 M/mm3 (4.6-6.2); White Blood Count 6.9 K/mm3 (4.4-11.0)
[2021-10-11 04:08] LABS: Troponin-I HS 45 pg/mL (3.0-78.0)
[2021-10-11 04:09] LABS: AST(SGOT) 24 U/L (15-37); Alanine Aminotransfer ALT/SGPT 50 U/L (16-61); Albumin, Serum 3.4 g/dL (3.2-5.0); Alkaline Phosphatase 55 U/L (45-117); Anion Gap 7 (5-15); BUN 14 mg/dL (7-18); BUN/Creat Ratio 17.7 RATIO (10-20); Calcium,Total 11.8 mg/dL (8.5-10.1); Chloride 108 mmol/L (98-107); Cholesterol 123 mg/dL (200); Creatinine, Serum 0.79 mg/dL (0.70-1.30); EST Glomerular Filtration Rate 105 mL/min (>60); Est Glom Filt Rate - Afr Amer 127 mL/min (>60); Estimated Creatinine Clearance 97.54 ml/min; Globulin 3.3 g/dL (2.2-4.2); Glucose 95 mg/dL (74-106); High Density Lipoprotein 28 mg/dL; Potassium 3.5 mmol/L (3.5-5.1); Protein, Total 6.7 g/dL (6.4-8.2); Sodium Level 143 mmol/L (136-145); Triglycerides 184 mg/dL; Very Low Density Lipoprotein 37 mg/dL (5-40)
--- NOTE | 2021-10-11 05:55 | EKG12_ITS ---
Test Reason : CP ADMIT Blood Pressure : / mmHG Vent. Rate : 071 BPM Atrial Rate : 079 BPM P-R Int : 258 ms QRS Dur : 110 ms QT Int : 404 ms P-R-T Axes : 063 017 030 degrees QTc Int : 439 ms Sinus rhythm with 1st degree A-V block with Blocked Premature atrial complexes Anteroseptal infarct, age undetermined Confirmed by LIZZIE PIZANO, JEET ([id number]), newspaper photo editor NAZ NORIEGA ([id number]) on 10/13/2021 8:27:00 AM Referred By: Confirmed By:JEET SAMUEL MD
[2021-10-11] MEDS: Aspirin E.C. 81 MG Tablet PO (06:11)
[2021-10-11 06:50] LABS: Bedside Glucose 106 mg/dL (74-106)
--- NOTE | 2021-10-11 10:46 | STRESSREP_ITS ---
Stress Test Report Date: 10-11-2021 Procedure: Pharmacologic stress nuclear imaging study Indications: Chest pain; CAD; status post PCI Consent: Per the patient Procedure: The patient underwent pharmacologic (Regadenoson 0.4mg ) evaluation with a peak heart rate of 97 beats per minute (62%predicted maximal heart rate) and a peak blood pressure of 152/82 mmHg. The baseline ECG demonstrated normal sinus rhythm; poor R wave progression; septal ND of indeterminate age cannot be excluded. The peak pharmacologic ECG demonstrated no obvious ECG changes. There was an isolated PVC during recovery. There was no complaint of chest discomfort during pharmacologic infusion or recovery. The examination was discontinued secondary to completion of protocol. Impression: 1. Pharmacologic (Regadenoson) evaluation 2. Peak pharmacologic ECG with no obvious ECG changes. 3. There was an isolated PVC during recovery. 4. Nuclear images pending Myocardial perfusion imaging study: Technique: The patient was injected with 10.0 millicuries of technetium 99m Cardiolite and subsequently rest SPECT Cardiolite nuclear imaging was obtained in the horizontal long, vertical long, and short axis views. The patient underwent pharmacologic (Regadenoson) evaluation with a peak heart rate of 97 beats per minute (62% percent predicted maximal heart rate) and a peak blood pressure of 152/82 mmHg. The patient was injected with 45.0 millicuries of technetium 99m Cardiolite and subsequently stress SPECT Cardiolite nuclear imaging was obtained in the horizontal long, vertical long, and short axis views. A gated Cardiolite study at peak stress was obtained. Interpretation: Rest and stress SPECT Cardiolite nuclear imaging status post realignment and normalization (attenuation correction was not performed) the appearance at rest of a small area of diminished myocardial perfusion/tracer uptake in the mid anteroseptal segments which appears to normalize following stress, however, following stress there is the appearance of an area of diminished myocardial perfusion/tracer uptake in portions of the mid inferior lateral segments. There is end systolic thickening and brightening. The gated Cardiolite study demonstrates myocardial thickening and inward wall motion. The reported LVEF is 61%. Impression: 1. Rest and stress SPECT Cardiolite nuclear imaging demonstrate a combination of myocardial perfusion changes appearing compatible with shifting soft tissue attenuation/artifact being more prominent at rest as opposed to stress, but also appearing compatible with an area of stress-induced myocardial ischemia involving portions of the mid inferolateral segments. 2. The gated Cardiolite study reports an LVEF of 61%. This note was generated with [employer] software. It may contain incorrect words, spelling, and punctuation that were not noted in checking the note before signing.
[2021-10-11 11:40] LABS: Bedside Glucose 144 mg/dL (74-106)
[2021-10-11] MEDS: hydrALAZINE 20 MG/ML Vial 10 MG IV ×2 (11:58→17:52)
--- NOTE | 2021-10-11 12:44 | PCM.PN.HOSP ---
Subjective Subjective Doing well, chest pain has resolved. Stress test was abnormal though and he does have a history of coronary artery disease with a stent Objective Data Objective Data Vital Signs: Vital Signs Temp Pulse Resp BP Pulse Ox O2 Del Method 97.0 F L 72 18 162/82 H 96 Room Air 10/11/21 11:33 10/11/21 11:58 10/11/21 11:33 10/11/21 11:33 10/11/21 11:33 10/11/21 11:33 Oxygen Delivery Method Room Air Weight: 268 lb 4.841 oz Body Mass Index (BMI) 38.5 Intake & Output: Intake and Output for Last 24 Hours 10/10/21 10/11/21 10/12/21 03:59 03:59 03:59 Intake Total 1000 / 1000 1795.83 / 1795.83 Output Total 1850 / 1850 Balance 1000 / 1000 -54.17 / -54.17 Lab / Micro Data Result Diagrams: 10/11/21 03:32 10/11/21 03:32 Labs: Laboratory Results - last 24 hr 10/10/21 21:10: WBC 7.5, RBC 5.10, Hgb 15.2, Hct 46.8, MCV 91.8, MCH 29.8, MCHC 32.5, RDW Std Deviation 51.2 H, RDW Coeff of Thao 15.2 H, Plt Count 273, MPV 10.0, Immature Gran % (Auto) 0.700, Neut % (Auto) 70.5 H, Lymph % (Auto) 13.0 L, [place] % (Auto) 12.8 H, Eos % (Auto) 2.5, Baso % (Auto) 0.5, Absolute Neuts (auto) 5.3, Absolute Lymphs (auto) 0.98, Nucleated RBC % 0 10/10/21 21:10: Sodium 139, Potassium 4.2, Chloride 106, Carbon Dioxide 26.0, Anion Gap 7, BUN 17, Creatinine 1.04, Estim Creat Clear Calc 74.09, Est GFR (MDRD) Af Amer 92, Est GFR (MDRD) Non-Af 76, BUN/Creatinine Ratio 16.3, Glucose 115 H, Calcium 13.1 H*, Magnesium 2.2, Troponin I High Sens 26 10/10/21 21:10: B-Natriuretic Peptide 77.2 10/10/21 23:30: Troponin I High Sens 37 10/10/21 23:30: Magnesium 2.1 10/11/21 03:32: WBC 6.9, RBC 4.71, Hgb 13.8, Hct 43.4, MCV 92.1, MCH 29.3, MCHC 31.8 L, RDW Std Deviation 51.8 H, RDW Coeff of Thao 15.3 H, Plt Count 240, MPV 9.8, Immature Gran % (Auto) 0.600, Neut % (Auto) 68.0, Lymph % (Auto) 13.3 L, [place] % (Auto) 14.3 H, Eos % (Auto) 3.2, Baso % (Auto) 0.6, Absolute Neuts (auto) 4.7, Absolute Lymphs (auto) 0.92, Nucleated RBC % 0 10/11/21 03:32: Sodium 143, Potassium 3.5, Chloride 108 H, Carbon Dioxide 28.0, Anion Gap 7, BUN 14, Creatinine 0.79, Estim Creat Clear Calc 97.54, Est GFR (MDRD) Af Amer 127, Est GFR (MDRD) Non-Af 105, BUN/Creatinine Ratio 17.7, Glucose 95, Calcium 11.8 H, Total Bilirubin 0.30, AST 24, ALT 50, Alkaline Phosphatase 55, Total Protein 6.7, Albumin 3.4, Globulin 3.3, Albumin/Globulin Ratio 1.0, Triglycerides 184, Cholesterol 123, LDL Cholesterol 58, VLDL Cholesterol 37, HDL Cholesterol 28 L 10/11/21 03:32: Troponin I High Sens 45 10/11/21 06:18: POC Glucose 106 10/11/21 11:32: POC Glucose 144 H Micro: Microbiology 10/10/21 21:10 Nasal Secretion SARS-CoV-2 & FLU Antigen (Rapid) - Final Radiography Diagnostic Testing: Radiology Impression Chest X-Ray 10/10/21 21:15 IMPRESSION: Degenerative changes, as described above. No demonstrated acute cardiopulmonary process. No major interval change. Electronically Signed: Jesus King DO at 21:53 EDT Reading Location ID and State: [address] [place] [address] Tel [phone], Service support , Brain CT 10/10/21 21:22 IMPRESSION: Chronic involutional changes without evidence of acute intracranial or calvarial abnormality. Electronically Signed: Jesus King DO at 22:01 EDT Reading Location ID and State: [facility] / [place] Tel [phone], Service support , Physical Exam Const alert, oriented x3 and no apparent distress General Appearance: cooperative HEENT normocephalic and moist oral mucous membranes Eyes PERRL, EOMs intact bilaterally and conjunctivae normal Neck supple and no JVD Resp normal respiratory effort, no retractions, no use of accessory muscles and clear to auscultation bilaterally Auscultation: Negative for crackles, rales, rhonchi or wheezes Cardio regular rate, regular rhythm, S1 normal heart sound, S2 normal heart sound and no murmurs GI soft to palpation, non-tender and non-distended; Negative for hepatosplenomegaly Extremity no clubbing, cyanosis or edema Skin no rashes or lesions noted Neuro no focal motor deficits and no sensory deficits noted Psych affect normal Appearance: appropriate Assessment & Plan Assessment/Plan (1) Chest pain: PLAN: Plan 1. Chest pain/CAD status post stent/HTN/HLD/obesity/FAVIAN ? Stress test was abnormal consult cardiology for evaluation ? He does have a history of a stent, will continue with his home medications ? Blood pressures are stable we will continue with his home blood pressure medications ? Continue with statin ? BMI of 38.5, discussed lifestyle modifications ? Continue with CPAP 2. Hypercalcemia secondary to hyperparathyroidism ? He will be following up as an outpatient with Dr. Villalta for a thyroid ultrasound ? Continue with some IV fluids ? We will likely need parathyroidectomy 3. DM2 ? Hold his oral regimen ? Continue with his home insulin regimen ? Accu-Cheks ? Sliding scale insulin ? We will adjust as necessary 4. Anxiety/depression ? Stable ? Continue with his home medications 5. History of PE ? No longer on anticoagulation DVT: Lovenox Charges/Coding Visit Charges OBSV E&M: 73377 Subsequent observation care L2
--- NOTE | 2021-10-11 12:50 | CON.PCM.CA_ITS ---
Assessment & Plan Assessment/Plan (1) Chest pain: PLAN: At the present time there are concerns that he has symptoms compatible with angina pectoris based upon his description and his relief with nitroglycerin sublingual. However, at the same time, he may have noncardiac etiologies of his chest discomfort as well which could include gastrointestinal related issues. From a cardiac standpoint he does have multiple cardiovascular risk factors and he has previously diagnosed with CAD requiring LAD PCI/DANIEL in 2017. Currently his troponin I levels are negative. His ECG is without any acute change. His previous cardiovascular studies including today's pharmacologic stress nuclear imaging study are noted below. They were reviewed with him. At the present time it would be recommended that he restart his appropriate cardiovascular medication and be considered for further evaluation with diagnostic cardiac catheterization. The procedure and risk were discussed with him. He was agreeable to this approach. (2) Atherosclerosis of coronary artery of [place] heart without angina pectoris: QUALIFIERS: Coronary Disease-Associated Artery/Lesion type: [place] artery Qualified Code(s): I25.10 - Atherosclerotic heart disease of [place] coronary artery without angina pectoris PLAN: He does have a history of CAD. Again based upon his symptoms and his objective findings he has been recommended for continuation of medical therapy and further evaluation with diagnostic cardiac catheterization. The procedure and risks have been discussed with him. He was agreeable to this approach. (3) History of coronary artery stent placement: PLAN: His CAD/PCI history was reviewed. He will continue evaluation care as noted above. (4) Hyperlipidemia: QUALIFIERS: Hyperlipidemia type: mixed hyperlipidemia Qualified Code(s): E78.2 - Mixed hyperlipidemia PLAN: He should continue medical management. (5) Essential (primary) hypertension: PLAN: His blood pressure will need to be monitored and he will continue medical therapy. 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 (7) Chronic hypoxemic respiratory failure: PLAN: He will need to continue evaluation by internal medicine and other specialist/subspecialist as deemed appropriate (8) Hypercalcemia: PLAN: He has been diagnosed with hypercalcemia. He has been undergoing noninvasive evaluation. He states he has additional noninvasive studies of his thyroid/parathyroid status coming up in the near future. He states he has not been told at this point in time that he will require any type of invasive evaluation/therapy. However, that could change depending upon his future studies. Addt'l Comments Overall, based upon the patient's symptoms, his cardiovascular history, his objective findings, and the potential need for upcoming noncardiac evaluation and care-possibly surgical based, it would be reasonable to further evaluate the patient with a diagnostic cardiac catheterization. Again the procedure and risk were discussed with him. He was agreeable to this approach. The case was discussed and reviewed with the patient and Dr. Schwartz. This note was generated using a voice recognition system and there may be incorrect words, spelling or punctuation that were not noted when reviewing the office note prior to saving. HPI Consult Data Date of Consult: 10/11/21 HPI Narrative HPI Narrative: ELIANE KAY, is a 65 year old white male who presents for cardiovascular consu ltation based upon concerns of chest discomfort concerning for angina pectoris superimposed upon a history of CAD status post LAD PCI/DANIEL (2016) with an abnormal pharmacologic stress nuclear imaging study with an additional history of hyperlipidemia, hypertension, diabetes mellitus, chronic pulmonary disease, and hypercalcemia. The patient presented with chest discomfort which he stated has been waxing and waning on and off and does radiate towards his back and may be associated with dyspnea diaphoresis and reported as improved with nitroglycerin sublingual use. He was previously scheduled for outpatient evaluation with an exercise tolerance test/imaging study based upon his history and his symptoms and in preparation for an upcoming noncardiac surgical procedure related to his hypercalcemia with concerns of hyperparathyroidism. However, he states he was unable to keep that previous appointment. He states he does have upcoming appointments to further evaluate his thyroid and parath yroid status with noninvasive studies. He is unsure at this time whether he will require any type of invasive evaluation or care. There is been no obvious reports of ongoing orthopnea or PND. There is been no near-syncope or syncope. He has noted an element of lower extremity peripheral pitting edema especially on the right side. He states he has had at least 30 pounds of weight loss over the last few months. He states he has been taking his cardiovascular medicines as previously prescribed at home. He states he was exposed to a nephew with COVID-19. He has undergone a COVID-19 rapid antigen test which was reported as negative. He has had cardiac enzymes performed which have been negative. An ECG demonstrated sinus rhythm. He had findings potentially compatible with an anteroseptal CT of indeterminate age. A pharmacologic stress nuclear imaging study was performed. The results are noted below. Based upon the results of his noninvasive cardiovascular testing and cardiology consultation was requested for consideration for diagnostic cardiac catheterization. [facility] Medical History Abnormal chest xray Acquired left ventricular hypertrophy Adult failure to thrive Arthritis Atherosclerosis of coronary artery of [place] heart without angina pectoris Chest discomfort Chronic hypoxemic respiratory failure Chronic pain of both knees Colon cancer screening Debility Diabetes Diabetes Dyspnea on exertion Epistaxis Essential (primary) hypertension Fatigue Flu vaccine need Generalized weakness Health care maintenance History of DVT (deep vein thrombosis) History of pulmonary embolism Hypercalcemia Hypercalcemia Hyperparathyroidism Hypertension Hypertriglyceridemia Hypoxia Irregular heart beat Morbid obesity with BMI of 40.0-44.9, adult Near syncope Obesity FAVIAN (obstructive sleep apnea) Osteoarthritis Pulmonary embolism Pure hypercholesterolemia Seizures Type 2 diabetes mellitus Home Medications albuterol sulfate 90 mcg/actuation aerosol inhaler 2 puff inhalation Q4H PRN PRN Sob &/Or Wheezing #18 grams 04/08/19 [Rx Last Taken 10/22/19] trazodone 50 mg tablet 50 mg PO QHS PRN Sleep 01/13/20 [History Last Taken 08/10/21] Handicap Placard #1 ea 04/08/20 [Rx Last Taken Unknown] blood sugar diagnostic (OneTouch Verio test strips) #100 ea 11/23/20 [Rx Last Taken Unknown] aspirin 81 mg chewable tablet 81 mg PO DAILY@0800 HEART HEALTH #90 tabs 11/25/20 [Rx Last Taken 08/23/21] amlodipine 10 mg tablet 10 mg PO DAILY BLOOD PRESSURE #90 tabs 12/18/20 [Rx Last Taken 08/23/21] losartan 25 mg tablet 25 mg PO DAILY #90 tabs 01/12/21 [Rx Last Taken 08/23/21] metformin 1,000 mg tablet 1,000 mg PO BIDCM DIABETES #180 tabs 01/12/21 [Rx Last Taken 08/23/21] ranolazine 500 mg tablet,extended release,12 hr 500 mg PO BID angina #180 tabs 02/04/21 [Rx Last Taken 08/23/21] flash glucose scanning reader (FreeStyle Tiffanie 2 [place]) #1 ea 02/16/21 [Rx Last Taken Unknown] flash glucose sensor (FreeStyle Tiffanie 2 Sensor) #2 ea 02/16/21 [Rx Last Taken Unknown] pen needle, diabetic 32 gauge x 5/32 (BD Ultra-Fine Lorie Pen Needle) #360 ea 02/16/21 [Rx Last Taken Unknown] paroxetine HCl 40 mg tablet 40 mg PO DAILY depression #90 tabs 07/08/21 [Rx Last Taken 08/23/21] fenofibrate micronized 200 mg capsule 200 mg PO DAILY #30 caps 07/30/21 [Rx Last Taken 08/23/21] metoprolol succinate 100 mg tablet,extended release 24 hr 100 mg PO BID BLOOD PRESSURE #180 tabs 08/09/21 [Rx Last Taken 08/23/21] acetaminophen 500 mg tablet 1,000 mg PO Q8 PRN pain/fever 08/23/21 [History Last Taken 08/20/21] bisacodyl 10 mg rectal suppository 10 mg IN DAILY PRN Constipation 08/23/21 [History Last Taken Unknown] magnesium hydroxide 400 mg/5 mL oral suspension (Milk of Magnesia) 30 ml PO DAILY PRN Constipation 08/23/21 [History Last Taken Unknown] sodium phosphates 19 gram-7 gram/118 mL enema (Enema) 118 ml IN DAILY PRN Constipation 08/23/21 [History Last Taken Unknown] potassium chloride 20 mEq tablet,extended release(part/cryst) 40 meq PO TID potassium 90 days #540 tabs 08/24/21 [Rx Last Taken Unknown] furosemide 20 mg tablet 60 mg PO BID 90 days #540 tabs 08/27/21 [Rx Last Taken Unknown] dulaglutide 1.5 mg/0.5 mL subcutaneous pen injector (Trulicity) 1.5 mg subcut QWEEK 09/01/21 [History Last Taken Unknown] insulin regular hum U-500 conc (Humulin R U-500 (Conc) Insulin Kwikpen) 45 unit (0.09 mL) subcut .TIDCM #8.1 mL 09/02/21 [Rx Last Taken Unknown] clopidogrel 75 mg tablet 75 mg PO DAILY BLOOD THINNER #90 tabs 09/27/21 [Rx Last Taken Unknown] nitroglycerin 0.4 mg sublingual tablet 0.4 mg sublingual Q5M PRN Chest Pain #25 tabs 09/27/21 [Rx Last Taken Unknown] atorvastatin 40 mg tablet 40 mg PO QHS CHOLESTEROL #90 tabs 10/05/21 [Rx Last Taken Unknown] hydrocodone-acetaminophen 5-325mg 5mg-325mg 1 tab PO BID PRN Pain 10/05/21 [History Last Taken Unknown] meclizine 12.5 mg tablet 12.5 mg PO TID PRN PRN vertigo #10 tabs 10/05/21 [Rx Last Taken Unknown] cholecalciferol (vitamin D3) 1,250 mcg (50,000 unit) capsule 1,250 mcg PO TUFR #24 caps 10/06/21 [Rx Last Taken Unknown] Allergy/AdvReac Type Severity Reaction Status Date / Time No Known Allergies Allergy Verified 10/05/21 12:56 Family History Mother Colon cancer Sister CAD (coronary artery disease) CABG x 5 Diabetes Myocardial infarction, Onset Age: 67 Father Crohns disease Surgical History History of appendectomy History of appendectomy 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) History of coronary artery stent placement (05/11/16) History of eye surgery History of hip replacement History of intestinal surgery History of knee surgery History of tonsillectomy and adenoidectomy Social History household members: none housing: apartment other: Hx working in [employer] and [employer]. Smoking Status: Never smoker second hand exposure: Yes alcohol intake: former year quit: 2003 details: Sober since 2003. substance use type: former substance user Date of last use: 04/10/2004 and marijuana caffeine: Yes Type: carbonated beverages Number of servings: 2 and coffee Number of servings: 2 what type of physical activity do you participate in: none ROS Constitutional Constitutional: Reports as per HPI Eyes Eyes: Reports as per HPI ENT HEENT: Reports as per HPI Cardiovascular Cardiovascular: Reports chest pain, dyspnea and nausea Respiratory/Chest Respiratory/Chest: Reports dyspnea Gastrointestinal Gastrointestinal: Reports as per HPI Genitourinary Genitourinary: Reports as per HPI Musculoskeletal Musculoskeletal: Reports as per HPI Integumentary Integumentary: Reports as per HPI Neurologic Neurologic: Reports as per HPI Psychiatric Psychiatric: Reports as per HPI Physical Exam Const alert, oriented x3 and no apparent distress Orientation / Consciousness: awake HEENT normocephalic, head/scalp atraumatic and hearing grossly normal bilaterally Eyes PERRL, EOMs intact bilaterally, conjunctivae normal and no scleral icterus Neck full ROM, supple and no JVD Carotids: normal carotid upstroke Resp normal respiratory effort and clear to auscultation bilaterally Cardio regular rate, regular rhythm, S1 normal heart sound and S2 normal heart sound GI normal to inspection, nondistended, normoactive bowel sounds Extremity General Extremity: edema bilateral lower extremity Details: moderate Skin no rashes or lesions noted Psych mental status grossly normal Risk Stratification Risk Stratification Applicable: No Procedure Criteria Type of Procedure Procedure Type: Elective Elective Risks - COVID COVID Risk Discussion: The surgeon/proceduralist and patient have discussed in detail the risk of exposure to and/or potential harm posed by the COVID-19 virus with having a surgery/procedure at this time versus the risk of delaying the surgery/procedure. It is not possible to know either the risk of delaying the surgery or procedure or chance of getting an infection with perfect accuracy, but a joint decision was made between the patient and the surgeon/proceduralist to proceed at this time with the scheduled surgery/procedure as indicated on the consent form. Objective Data Vital Signs: Vital Signs Temp Pulse Resp BP Pulse Ox O2 Del Method 97.0 F L 72 18 162/82 H 96 Room Air 10/11/21 11:33 10/11/21 11:58 10/11/21 11:33 10/11/21 11:33 10/11/21 11:33 10/11/21 11:33 Oxygen Delivery Method Room Air Weight: 268 lb 4.841 oz Body Mass Index (BMI) 38.5 Intake & Output: Intake and Output for Last 24 Hours 10/09/21 10/10/21 10/11/21 23:59 23:59 23:59 Intake Total 2795.83 / 2795.83 Output Total 1850 / 1850 Balance 945.83 / 945.83 Lab / Micro Data Result Diagrams: 10/11/21 03:32 10/11/21 03:32 Labs: Laboratory Results - last 24 hr 10/10/21 21:10: WBC 7.5, RBC 5.10, Hgb 15.2, Hct 46.8, MCV 91.8, MCH 29.8, MCHC 32.5, RDW Std Deviation 51.2 H, RDW Coeff of Thao 15.2 H, Plt Count 273, MPV 10.0, Immature Gran % (Auto) 0.700, Neut % (Auto) 70.5 H, Lymph % (Auto) 13.0 L, [place] % (Auto) 12.8 H, Eos % (Auto) 2.5, Baso % (Auto) 0.5, Absolute Neuts (auto) 5.3, Absolute Lymphs (auto) 0.98, Nucleated RBC % 0 10/10/21 21:10: Sodium 139, Potassium 4.2, Chloride 106, Carbon Dioxide 26.0, Anion Gap 7, BUN 17, Creatinine 1.04, Estim Creat Clear Calc 74.09, Est GFR (MDRD) Af Amer 92, Est GFR (MDRD) Non-Af 76, BUN/Creatinine Ratio 16.3, Glucose 115 H, Calcium 13.1 H*, Magnesium 2.2, Troponin I High Sens 26 10/10/21 21:10: B-Natriuretic Peptide 77.2 10/10/21 23:30: Troponin I High Sens 37 10/10/21 23:30: Magnesium 2.1 10/11/21 03:32: WBC 6.9, RBC 4.71, Hgb 13.8, Hct 43.4, MCV 92.1, MCH 29.3, MCHC 31.8 L, RDW Std Deviation 51.8 H, RDW Coeff of Thao 15.3 H, Plt Count 240, MPV 9.8, Immature Gran % (Auto) 0.600, Neut % (Auto) 68.0, Lymph % (Auto) 13.3 L, [place] % (Auto) 14.3 H, Eos % (Auto) 3.2, Baso % (Auto) 0.6, Absolute Neuts (auto) 4.7, Absolute Lymphs (auto) 0.92, Nucleated RBC % 0 10/11/21 03:32: Sodium 143, Potassium 3.5, Chloride 108 H, Carbon Dioxide 28.0, Anion Gap 7, BUN 14, Creatinine 0.79, Estim Creat Clear Calc 97.54, Est GFR (MDRD) Af Amer 127, Est GFR (MDRD) Non-Af 105, BUN/Creatinine Ratio 17.7, Glucose 95, Calcium 11.8 H, Total Bilirubin 0.30, AST 24, ALT 50, Alkaline Phosphatase 55, Total Protein 6.7, Albumin 3.4, Globulin 3.3, Albumin/Globulin Ratio 1.0, Triglycerides 184, Cholesterol 123, LDL Cholesterol 58, VLDL Cholesterol 37, HDL Cholesterol 28 L 10/11/21 03:32: Troponin I High Sens 45 10/11/21 06:18: POC Glucose 106 10/11/21 11:32: POC Glucose 144 H Micro: Microbiology 10/10/21 21:10 Nasal Secretion SARS-CoV-2 & FLU Antigen (Rapid) - Final Cardiology Labs/Tests 10/10/21 21:10: WBC 7.5, RBC 5.10, Hgb 15.2, Hct 46.8, MCV 91.8, MCH 29.8, MCHC 32.5, Plt Count 273, MPV 10.0, Immature Gran % (Auto) 0.700, Neut % (Auto) 70.5 H, Lymph % (Auto) 13.0 L, [place] % (Auto) 12.8 H, Eos % (Auto) 2.5, Baso % (Auto) 0.5, Absolute Neuts (auto) 5.3, Nucleated RBC % 0 10/10/21 21:10: Sodium 139, Potassium 4.2, Chloride 106, Carbon Dioxide 26.0, Anion Gap 7, BUN 17, Creatinine 1.04, Est GFR (MDRD) Af Amer 92, Est GFR (MDRD) Non-Af 76, BUN/Creatinine Ratio 16.3, Glucose 115 H, Calcium 13.1 H*, Magnesium 2.2 10/10/21 21:10: B-Natriuretic Peptide 77.2 10/10/21 23:30: Magnesium 2.1 10/11/21 03:32: WBC 6.9, RBC 4.71, Hgb 13.8, Hct 43.4, MCV 92.1, MCH 29.3, MCHC 31.8 L, Plt Count 240, MPV 9.8, Immature Gran % (Auto) 0.600, Neut % (Auto) 68.0, Lymph % (Auto) 13.3 L, [place] % (Auto) 14.3 H, Eos % (Auto) 3.2, Baso % (Auto) 0.6, Absolute Neuts (auto) 4.7, Nucleated RBC % 0 10/11/21 03:32: Sodium 143, Potassium 3.5, Chloride 108 H, Carbon Dioxide 28.0, Anion Gap 7, BUN 14, Creatinine 0.79, Est GFR (MDRD) Af Amer 127, Est GFR (MDRD) Non-Af 105, BUN/Creatinine Ratio 17.7, Glucose 95, Calcium 11.8 H, Total B ilirubin 0.30, Triglycerides 184, Cholesterol 123, LDL Cholesterol 58, VLDL Cholesterol 37, HDL Cholesterol 28 L Rhythm: Sinus rhythm EKG: ECHO: 05-18-2021 Interpretation Summary Normal LV size. Left ventricular systolic function is normal. The estimated ejection fraction is 60 %. Bubble contrast study negative for right to left interatrial shunt. Contrast injection was performed. The study was technically limited. ? Stress Test: Stress Test Report Date: 10-11-2021 Procedure: Pharmacologic stress nuclear imaging study? Indications: Chest pain; CAD; status post PCI Consent: Per the patient Procedure: The patient underwent pharmacologic (Regadenoson 0.4mg ) evaluation with a peak heart rate of 97 beats per minute (62%predicted maximal heart rate) and a peak blood pressure of 152/82 mmHg. The baseline ECG demonstrated normal sinus rhythm; poor R wave progression; septal CT of indeterminate age cannot be excluded.? The peak pharmacologic ECG demonstrated no obvious ECG changes. There was an isolated PVC during recovery. There was no complaint of chest discomfort during pharmacologic infusion or recovery. The examination was discontinued secondary to completion of protocol. Impression: 1.? Pharmacologic (Regadenoson) evaluation 2.? Peak pharmacologic ECG with no obvious ECG changes. 3.? There was an isolated PVC during recovery. 4.? Nuclear images pending Myocardial perfusion imaging study: Technique: The patient was injected with 10.0 millicuries of technetium 99m Cardiolite and subsequently rest SPECT Cardiolite nuclear imaging was obtained in the horizo ntal long, vertical long, and short axis views. The patient underwent pharmacologic (Regadenoson) evaluation with a peak heart rate of 97 beats per minute (62% percent predicted maximal heart rate) and a peak blood pressure of 152/82 mmHg. The patient was injected with 45.0 millicuries of technetium 99m Cardiolite and subsequently stress SPECT Cardiolite nuclear imaging was obtained in the horizontal long, vertical long, and short axis views.? A gated Cardiolite study at peak stress was obtained. Interpretation: Rest and stress SPECT Cardiolite nuclear imaging status post realignment and nor malization (attenuation correction was not performed) the appearance at rest of a small area of diminished myocardial perfusion/tracer uptake in the mid anteroseptal segments which appears to normalize following stress, however, following stress there is the appearance of an area of diminished myocardial perfusion/tracer uptake in portions of the mid inferior lateral segments.? There is end systolic thickening and brightening.? The gated Cardiolite study demonstrates myocardial thickening and inward wall motion.? The reported LVEF is 61%. Impression: 1.? Rest and stress SPECT Cardiolite nuclear imaging demonstrate a combination of myocardial perfusion changes appearing compatible with shifting soft tissue attenuation/artifact being more prominent at rest as opposed to stress, but also appearing compatible with an area of stress-induced myocardial ischemia involving portions of the mid inferolateral segments. 2.? The gated Cardiolite study reports an LVEF of 61%. Cardiac Cath: 01-07-2015 CONCLUSIONS: 1.? Moderate pulmonary hypertension with an RV pressure of around 49 mmHg.? His PA pressures were around 37 mmHg. 2.? Moderate to severe elevated left ventricular end diastolic pressure and pulmonary capillary wedge pressure indicating diastolic dysfunction, probably secondary to systemic hypertension. 3.? Severe systemic hypertension, which is uncontrolled despite maximal medical therapy. 4.? Possibly significant mid LAD stenosis. Probably significant ostial posterior descending artery stenosis and possibly significant ostial posterolateral branch stenosis. 5.? Normal LV function with an EF of 65%. 6.? Nonobstructive coronary artery disease of the left circumflex system. RECOMMENDATIONS: At this point, the patient's symptoms are most likely secondary to ongoing uncontrolled hypertension despite polypharmacy.? In addition, the patient's symptoms are most likely secondary to poor compliance with his CPAP for what appears to be significant sleep apnea. ?The patient has already had a pulmonary embolus in the past, and given his pulmonary pressures, I would recommend resuming Coumadin therapy for the residential.? This would be after we evaluate his LAD and possibly intervene on his PDA and posterolateral branch. The patient has already had a stress test in which he was only able to go 3 minutes, but did not have any evidence of inferior or anterior ischemia and excellent double product. My recommendation is for the patient to initiate hydralazine 25 mg p.o. t.i.d., and increase his Lasix to 40 mg p.o. daily for diuretic and afterload reduction.? In addition, the patient must comply with his CPAP in order to avoid worsening obstructive sleep apnea. In addition, we will initiate the patient on Plavix in addition to his baby aspirin.? We will then see the patient back in 2 weeks' time for a blood pressure check.? If his blood pressure is optimized, we will then proceed with FFR evaluation of his LAD, PDA. and posterolateral branch.? If any of these vessels are found to be significant for ischemia, we will then proceed with intervention. We will make arrangements for the patient to follow up with Dr Damion Hawkins for CPAP or BiPAP titration, as well as for possible oxygen therapy given his relative hypoxia at rest.? His O2 sats were 92% to 93% on room air at rest. The patient tolerated the procedure well.? The sheaths will be removed in the holding area.? He will follow up with me, Dr. Gracia, going forward to evaluate for coronary ischemia and possible intervention.? The patient tolerated the procedure well with no complications. Harinder Gracia M.D. Cardiac catheterization: PCI: 05-11-2016 CONCLUSIONS: 1.? Significant single vessel coronary artery disease in the mid left anterior descending, which appears to have progressed since 2014. 2.? Markedly improved ostial posterior descending artery and posterolateral branch as evidenced by diagnostic coronary angiogram today. 3.? Normal left ventricular function. 4.? Normal left ventricular end-diastolic pressure. RECOMMENDATIONS: At this point, the patient appears to have progression of his mid LAD stenosis, which is most likely the culprit artery for his angina and abnormal stress test.? I recommend proceeding with drug-eluting stent at this area in order to facilitate the patient's angina and hopefully advance him to cardiac rehabilitation for significant weight loss. Results were explained to the patient and he agreed to proceed with angioplasty here at [facility]. PROCEDURE: Coronary angioplasty: At the conclusion of the coronary angiogram, it was discovered that the patient has significant mid LAD stenosis progression since his previous angiogram.? After discussing with the patient, we agreed to proceed with drug-eluting stent of this area. Under fluoroscopic guidance, the 4-Italian sheath was exchanged for a 6-Italian short sheath and flushed with heparinized saline.? The patient was then given 6000 units of IV heparin. ?He had already been pretreated with baby aspirin and Plavix for some time.? N ext, a 6-Italian EBU 3.75 guide catheter was easily engaged into the left main coronary artery. There was no dampening or ventricularization upon engagement. Next, a 0.014 universal wire was used to easily cannulate the vessel and deposited in the distal LAD.? Next, a 3.0 x 16 Promus Synergy drug-eluting stent was positioned across the lesion and deployed at 12 atmospheres and then at 14 atmospheres x10 seconds and 35 seconds respectively.? During the second inflation, the patient noted signific ant chest pain similar to his previous angina at home. Next, 200 mcg of intracoronary nitroglycerin were given.? Post-stenting angiography demonstrated excellent VERONICA 3 flow, no new lesions, no dissection and complete resolution of the stenosis in the mid LAD.? No additional stenting appeared to be required. The wire and guide catheter were removed, and the sheath was exchanged over a J- wire for a 23 cm sheath in order to prevent accidental dislodgement out of the femoral artery during transport or recovery. CONCLUSIONS: 1.? Successful aspirin/Plavix and heparin assisted angioplasty and drug-eluting stenting of the mid left anterior descending receiving a 3.0 x 16 Promus Synergy stent at 14 atmospheres going from 85% to 0% with no dissections or new lesions. 2.? The patient will remain on baby aspirin for life and Plavix for at least 1 year's time. 3.? We will hold his Coumadin for at least 2 weeks' time and resume this as he has a history of severe obesity, and previous pulmonary emboli. Harinder Gracia M.D. Radiography Diagnostic Testing: Radiology Impression Chest X-Ray 10/10/21 21:15 IMPRESSION: Degenerative changes, as described above. No demonstrated acute cardiopulmonary process. No major interval change. Electronically Signed: Jesus King DO at 21:53 EDT Reading Location ID and State: [address] [place] [address] Tel [phone], Service support , Brain CT 10/10/21 21:22 IMPRESSION: Chronic involutional changes without evidence of acute intracranial or calvarial abnormality. Electronically Signed: Jesus King DO at 22:01 EDT Reading Location ID and State: [address] [place] [address] Tel [phone], Service support ,
[2021-10-11] MEDS: Potassium Chloride Oral Tablet 20 MEQ 40 MEQ PO (15:12)
[2021-10-11] MEDS: Clopidogrel Bisulfate 75 MG Tablet PO (15:12)
[2021-10-11] MEDS: HYDROcodone Bitartrate/Apap 5/325 Tablet PO ×2 (15:12→21:50)
[2021-10-11] MEDS: Furosemide 40 MG/4 ML Vial IV (16:58)
[2021-10-11 17:56] LABS: Bedside Glucose 140 mg/dL (74-106)
[2021-10-11] MEDS: Paroxetine 20 MG Tablet 40 MG PO (21:49)
[2021-10-11] MEDS: Metoprolol Tartrate 50 MG Tablet PO (21:50)
[2021-10-11] MEDS: Ranolazine 500 MG Tablet PO (21:50)
[2021-10-11] MEDS: Losartan Potassium 25 MG Tablet PO (21:51)
[2021-10-11] MEDS: Insulin Lispro 100 UNIT/ML INSULN.PEN SC (21:51)
[2021-10-11] MEDS: Atorvastatin Calcium 40 MG Tablet PO (21:51)
[2021-10-11 22:06] LABS: Bedside Glucose 184 mg/dL (74-106)
[2021-10-12] VITALS (25 sets, daily range): BP systolic 117–161; BP diastolic 59–93; PULSE 60–82; RESP 12–18; TEMP 35.6–36.9; O2SAT 92–99
[2021-10-12] MEDS: Morphine 2 MG/ML Syringe IV ×3 (00:56→21:51)
--- NOTE | 2021-10-12 05:55 | EKG12_ITS ---
Test Reason : AM EKG Blood Pressure : / mmHG Vent. Rate : 058 BPM Atrial Rate : 058 BPM P-R Int : 266 ms QRS Dur : 102 ms QT Int : 420 ms P-R-T Axes : 077 021 042 degrees QTc Int : 412 ms Sinus bradycardia with 1st degree A-V block with Blocked Premature atrial complexes Anteroseptal infarct , age undetermined Abnormal ECG Confirmed by LIZZIE PIZANO, JEET ([id number]), features editor NAZ NORIEGA ([id number]) on 10/13/2021 8:27:29 AM Referred By: Confirmed By:JEET SAMUEL MD
[2021-10-12] MEDS: 0.9% Normal Saline 1,000 ML 125 ML IV ×3 (06:03→21:43)
[2021-10-12 06:46] LABS: Anion Gap 6 (5-15); BUN 12 mg/dL (7-18); BUN/Creat Ratio 14.2 RATIO (10-20); Chloride 106 mmol/L (98-107); Creatinine, Serum 0.84 mg/dL (0.70-1.30); EST Glomerular Filtration Rate 97 mL/min (>60); Est Glom Filt Rate - Afr Amer 117 mL/min (>60); Estimated Creatinine Clearance 91.73 ml/min; Glucose 166 mg/dL (74-106); Potassium 3.5 mmol/L (3.5-5.1); Sodium Level 138 mmol/L (136-145)
[2021-10-12] MEDS: Clopidogrel Bisulfate 75 MG Tablet PO (06:55)
[2021-10-12] MEDS: Losartan Potassium 25 MG Tablet PO ×2 (06:55→21:44)
[2021-10-12] MEDS: Metoprolol Tartrate 50 MG Tablet PO ×2 (06:56→21:44)
[2021-10-12] MEDS: Aspirin E.C. 81 MG Tablet PO (06:56)
[2021-10-12] MEDS: amLODIPine 10 MG Tablet PO (06:56)
[2021-10-12] MEDS: Ranolazine 500 MG Tablet PO ×2 (06:56→21:45)
[2021-10-12 07:16] LABS: Bedside Glucose 162 mg/dL (74-106)
[2021-10-12] MEDS: 0.9% Normal Saline 1,000 ML 15 ML IV (07:23)
--- NOTE | 2021-10-12 07:37 | NURSING ---
This RN called and gave report to CLARITA Richmond at clinical laboratory medical director.
--- NOTE | 2021-10-12 09:24 | CASEMGMT ---
According to the [employer] website, the following are in-network tertiary facilities: [facility], [place], [facility], [facility], [facility], [facility], [facility], [facility], and . Po OTTO CM
--- NOTE | 2021-10-12 10:13 | PCI.CARDCATH ---
PCI Cardiac Cath Report PCI Report: PCI cardiac cath report; 1. Successful PCI and stent of 80% proximal OM1 stenosis, with predilatation using 2 x 15 mm balloon followed by placement of drug-eluting stent 2.5 x 22 mm Orsiro/DANIEL Followed by postdilatation using 3 x 15 mm NC emerge/MR?balloon, with reduction of stenosis to 0% and maintenance of VERONICA-3 flow 2. IFR of mid LAD eccentric stenosis/intermediate around 50-60% stenosis with normal IFR 0.99. Mid LAD stent is patent 3. Placement of TR band to close the right radial artery arteriotomy site Preprocedure diagnosis; 65-year-old patient, with history of CAD, patient had a PCI and stent of distal LAD in 2017 using drug-eluting stent Patient presented with symptoms of chest pain and has a negative cardiac biomarkers with high sensitive troponin, subsequently he was evaluated further with nuclear stress test which is abnormal In addition to multiple other risk factor for CAD with a history of diabetes mellitus hypertension hyperlipidemia patient also had chronic pulmonary disease and hypercalcemia. Based on his clinical presentation he underwent cardiac catheterization by his primary ampoule filler Dr. Min Left main normal angiographically, bifurcating into LAD and left circumflex. 80% stenosis of the proximal OM1 branch diffuse disease. Mid LAD eccentric lesion intermediate around 50 to 60% noted and had significant 80% stenosis of a proximal OM1 RCA no significant coronary artery atherosclerosis noted. LV systolic function preserved. Patient was on Plavix and aspirin he was given additional doses of total 300 of Plavix today and aspirin regular Consent; Risk and benefit of procedure explained in detail patient agreed to proceed informed consent obtained Access; Right radial artery 6 Belarusian trauma sheath Interventional equipment; 1. 6 Belarusian EBU guide catheter 2. 0.014 run-through extra floppy 180 cm straight wire 3. 2 x 15 mm emerge MR balloon 4. 2.5 x 22 mm drug-eluting stent/DANIEL/Orsiro 5. 3 x 15 mm NC Emerge balloon Procedure in detail; Under fluoroscopic guidance we will proceed with a 6 Belarusian 3.5 EBU guide advanced ascending aorta cannulated the left main without difficulty Following this angiographic view of the left system obtain, identified the lesion in the OM1 then we will proceed with run-through wire across the lesion followed by predilatation using 2 x 15 mm balloon Followed by placement of a drug-eluting stent 2.5 x 22 mm followed by postdilatation using 3 x 15 mm NC balloon/emerge MR up to 16 JULI and achieve excellent result with no complication Following this we proceeded with IFR wire normalized proximally and then across the lesion in the mid LAD and measures IFR which was normal 0.99. There were no change in the cardiac monitors patient did develop symptoms of chest pain which resolved. Medication used in the Business Development Professional: 1. Heparin use as an anticoagulant he was given initially 7000 international unit and INR was 216 he was given additional 3000 units of heparin 2. patient was given a total of 300 of Plavix in addition to regular aspirin. Conclusion recommendations; Patient had successful PCI of OM1 branch with balloon dilatation followed by placement drug-eluting stent at the specified Evaluation of mid LAD by IFR wire was within normal 1. Patient to continue on DAPT for 1 year with aspirin 81 mg in addition to Plavix 75 g daily 2. Patient is scheduled for cardiac rehab program here at [facility] 3. Patient to follow-up regularly with his primary ampoule filler Dr. Min for continuation of cardiac care. No complication in the Business Development Professional Ty Rocha MD,FACC,[facility]
[2021-10-12] MEDS: Fenofibrate 145 MG Tablet PO (10:15)
--- NOTE | 2021-10-12 10:15 | EKG12_ITS ---
Test Reason : AM EKG Blood Pressure : / mmHG Vent. Rate : 074 BPM Atrial Rate : 074 BPM P-R Int : 256 ms QRS Dur : 106 ms QT Int : 404 ms P-R-T Axes : 066 008 091 degrees QTc Int : 448 ms Sinus rhythm with 1st degree A-V block Septal KS, age undetermined Confirmed by LIZZIE PIZANO, JEET ([id number]), assistant film editor NAZ NORIEGA ([id number]) on 10/14/2021 9:12:40 AM Referred By: Confirmed By:JEET SAMUEL MD
[2021-10-12] MEDS: Furosemide 40 MG/4 ML Vial IV ×2 (10:16→16:56)
--- NOTE | 2021-10-12 10:20 | CL.D_ITS ---
Patient Name: ELIANE KAY Study Date: 10/12/2021 Performing: Hank Min MD Ht: 70 inches 178 cm : 1955 Wt: 271.5 lbs 123 kg Age: 65 Gender: male BSA: 2.38 PROCEDURE(S) PERFORMED DC02-(07823)LHC/COR IC12-([id number])DANIEL W/WO PTCA, SINGLE CORONARY ARTERY IC10-([id number])FFR, CORONARY OR GRAFT, INITIAL VESSEL CLINICAL PROFILE AND INDICATIONS Indications: Worsening Angina, Suspected CAD Heart Failure: None Stress/Imaging Date: 10/11/2021tress Test with SPECT MPI: Positive Intermediate Risk Angina Classification Anginal Classification w/in 2 Weeks: CCS IV CAD Presentations: Other: worsening angina CONCLUSIONS [place] Multivessel CAD RECOMMENDATIONS Staged for FFR of the LAD Referred for immediate PCI of OM1 Case discussed / reviewed with Dr. Rocha of Interventional Cardiology DESCRIPTION OF PROCEDURE The patient arrived to the procedure lab. The risks and benefits of the procedure as well as a full d escription of our services here and current unavailability of surgical backup were fully explained to the patient and/or their significant other prior to the catheterization. The Timeout was completed, verifying the correct patient and procedure. The patient's procedural site was prepped and draped in the usual fashion. Local anesthetic was given subcutaneously to right radial region with Lidocaine 2% . Using a modified Seldinger technique, arterial access was obtained via the right radial artery, a 6 Fr sheath was inserted. Left Coronary Artery selective angiography was performed in multiple views u sing a 5 Fr. 4.0 [place] catheter. Left Coronary Artery selective angiography was performed in multiple views using a 5 Fr. JL3.5 catheter. Right Coronary Artery selective angiography was then performed i n multiple views using a 5 Fr. JR 4 catheter.The arterial sheath was pulled and a TR Band was applied for hemostasis w/ 13ml air CORONARY ANGIOGRAPHY DOMINANCE: Right Dominant LEFT HEART ASSESSMENT Left Ventricular Ejection Fraction: Not assessed LEFT MAIN: Angiographically normal LEFT ANTERIOR DESCENDING ARTERY: MID LAD: pre stent: eccentric: 50 - 75 % Stenosis, Previously placed stent is patent, Mild luminal ir regularities CIRCUMFLEX ARTERY: PROX CIRC: Mild luminal irregularities MID CIRC: Mild luminal irregularities OM 1: Proximal - eccentric: hazy: 85 % Stenosis OM 2: Mid - Mild luminal irregularities RIGHT CORONARY ARTERY: Mild luminal irregularities COMPLICATIONS No Complications PROCEDURE MEDICATIONS Versed 1 mg IV Fentanyl 50 mcg IV Versed 1 mg IV Fentanyl 50 mcg IV Fentanyl 50 mcg IV Oxygen: 2 L/min via nasal cannula Heparin given IA 10/12/2021 08:22:09 Heparin 7000 unit(s) IV 10/12/2021 08:57:29 Heparin 3000 unit(s) IV 10/12/2021 09:40:53 Nitro 200 mcg IC 10/12/2021 09:31:37 Plavix 225 mg PO 10/12/2021 08:53:08 Verapamil 2.5mg, Ntg 100mcgs, 3000 units of Heparin given IA 10/12/2021 08:22:09 SUMMARY OF HEMODYNAMIC DATA Time AIR REST ECG 07:48:48 Art 183/81 (115) 08:06:54 AO 122/72 (88) SA 08:24:51 AO 170/74 (104) 08:38:24 Signed By Hank Min MD On 10/12/2021 10:19:43 Hank Min MD
--- NOTE | 2021-10-12 10:23 | PCM.PN.HOSP ---
Subjective Subjective Doing well, no issues overnight. Chest pain has remained resolved Objective Data Objective Data Vital Signs: Vital Signs Temp Pulse Resp BP Pulse Ox O2 Del Method FiO2 96.4 F L 69 18 148/82 H 94 Room Air 21 10/12/21 10:00 10/12/21 10:00 10/12/21 10:00 10/12/21 10:00 10/12/21 10:00 10/12/21 10:00 10/12/21 00:06 Oxygen Delivery Method Room Air Weight: 270 lb 4.587 oz Body Mass Index (BMI) 38.5 Intake & Output: Intake and Output for Last 24 Hours 10/11/21 10/12/21 10/13/21 03:59 03:59 03:59 Intake Total 1000 / 1000 3710.83 / 3710.83 1181.25 / 1181.25 Output Total 2450 / 2450 1000 / 1000 Balance 1000 / 1000 1260.83 / 1260.83 181.25 / 181.25 Lab / Micro Data Result Diagrams: 10/11/21 03:32 10/12/21 04:39 Labs: Laboratory Results - last 24 hr 10/11/21 11:32: POC Glucose 144 H 10/11/21 15:15: POC Glucose 140 H 10/11/21 21:44: POC Glucose 184 H 10/12/21 04:39: Sodium 138, Potassium 3.5, Chloride 106, Carbon Dioxide 26.0, Anion Gap 6, BUN 12, Creatinine 0.84, Estim Creat Clear Calc 91.73, Est GFR (MDRD) Af Amer 117, Est GFR (MDRD) Non-Af 97, BUN/Creatinine Ratio 14.2, Glucose 166 H, Calcium 12.0 H 10/12/21 06:52: POC Glucose 162 H Micro: Microbiology 10/10/21 21:10 Nasal Secretion SARS-CoV-2 & FLU Antigen (Rapid) - Final Physical Exam Narrative Const alert, oriented x3 and no apparent distress General Appearance: cooperative HEENT normocephalic and moist oral mucous membranes Eyes PERRL, EOMs intact bilaterally and conjunctivae normal Neck supple and no JVD Resp normal respiratory effort, no retractions, no use of accessory muscles and clear to auscultation bilaterally Auscultation: Negative for crackles, rales, rhonchi or wheezes Cardio regular rate, regular rhythm, S1 normal heart sound, S2 normal heart sound and no murmurs GI soft to palpation, non-tender and non-distended; Negative for hepatosplenomegaly Extremity no clubbing, cyanosis or edema Skin no rashes or lesions noted Neuro no focal motor deficits and no sensory deficits noted Psych affect normal Appearance: appropriate Assessment & Plan Assessment/Plan (1) Chest pain: PLAN: Plan 1. Chest pain/CAD status post stent/HTN/HLD/obesity/FAVIAN ? Stress test was abnormal and heart cath today demonstrated an 85% stenosis in OM1 therefore plan for stent today ? Appreciate cardiology's assistance ? He does have a history of a stent, will continue with his home medications ? Blood pressures are stable we will continue with his home blood pressure medications ? Continue with statin ? BMI of 38.5, discussed lifestyle modifications ? Continue with CPAP 2. Hypercalcemia secondary to hyperparathyroidism ? He will be following up as an outpatient with Dr. Villalta for a thyroid ultrasound ? Continue with some IV fluids ? We will likely need parathyroidectomy 3. DM2 ? Hold his oral regimen ? Continue with his home insulin regimen ? Accu-Cheks ? Sliding scale insulin ? We will adjust as necessary 4. Anxiety/depression ? Stable ? Continue with his home medications 5. History of PE ? No longer on anticoagulation DVT: Lovenox Charges/Coding Visit Charges OBSV E&M: 41736 Subsequent observation care L2
[2021-10-12] MEDS: Insulin Lispro 100 UNIT/ML INSULN.PEN SC ×3 (10:55→21:44)
[2021-10-12 11:06] LABS: Bedside Glucose 172 mg/dL (74-106)
--- NOTE | 2021-10-12 11:30 | CASEMGMT ---
This RN FRED to room with MONTES form, explanation done-pt voices understanding, and signs MONTES form. Original to chart and copy to pt. Pt voices no further questions/concerns/needs. [place] CLARITA CM
--- NOTE | 2021-10-12 12:51 | CASEMGMT ---
Discharge Computer Programming Supervisor Michelle from the [facility] called. [facility] accept patient. Patient can go when medically ready. GLORIA Yan has been notified. Isabella Schultz Discharge Computer Programming Supervisor
--- NOTE | 2021-10-12 13:15 | PN.CARD_ITS ---
Subjective Subjective The patient underwent diagnostic cardiac catheterization earlier this day. He did demonstrate progression of CAD requiring LCx/OM PCI. Objective Data Vital Signs: Vital Signs Temp Pulse Resp BP Pulse Ox O2 Del Method FiO2 96.8 F L 75 18 137/71 H 97 Room Air 21 10/12/21 13:00 10/12/21 13:00 10/12/21 13:00 10/12/21 13:00 10/12/21 13:00 10/12/21 13:00 10/12/21 00:06 Oxygen Delivery Method Room Air Weight: 270 lb 4.587 oz Body Mass Index (BMI) 38.5 Intake & Output: Intake and Output for Last 24 Hours 10/10/21 10/11/21 10/12/21 23:59 23:59 23:59 Intake Total 4470.83 / 4470.83 1880.25 / 1880.25 Output Total 1850 / 1850 3300 / 3300 Balance 2620.83 / 2620.83 -1419.75 / -1419.75 Lab / Micro Data Result Diagrams: 10/11/21 03:32 10/12/21 04:39 Labs: Laboratory Results - last 24 hr 10/11/21 15:15: POC Glucose 140 H 10/11/21 21:44: POC Glucose 184 H 10/12/21 04:39: Sodium 138, Potassium 3.5, Chloride 106, Carbon Dioxide 26.0, Anion Gap 6, BUN 12, Creatinine 0.84, Estim Creat Clear Calc 91.73, Est GFR (MDRD) Af Amer 117, Est GFR (MDRD) Non-Af 97, BUN/Creatinine Ratio 14.2, Glucose 166 H, Calcium 12.0 H 10/12/21 06:52: POC Glucose 162 H 10/12/21 10:45: POC Glucose 172 H Cardiology Labs/Tests 10/12/21 04:39: Sodium 138, Potassium 3.5, Chloride 106, Carbon Dioxide 26.0, Anion Gap 6, BUN 12, Creatinine 0.84, Est GFR (MDRD) Af Amer 117, Est GFR (MDRD) Non-Af 97, BUN/Creatinine Ratio 14.2, Glucose 166 H, Calcium 12.0 H Rhythm: Sinus rhythm Cardiac Cath: CONCLUSIONS [place] Multivessel CAD RECOMMENDATIONS Staged for FFR of the LAD Referred for immediate PCI of OM1 Case discussed / reviewed with Dr. Rocha of Interventional Cardiology DESCRIPTION OF? PROCEDURE The patient arrived to the procedure lab. The risks and benefits of the procedure as well as a full description of our services here and current unavailability of surgical backup were fully explained to the patient and/or their significant other prior to the catheterization. The Timeout was completed, verifying the correct patient and procedure. The patient's procedural site was prepped and draped in the usual fashion. Local anesthetic was given subcutaneously to right radial region with Lidocaine 2%. Using a modified Seldinger technique, arterial access was obtained via the right radial artery, a 6Fr sheath was inserted.? Left Coronary Artery selective angiography was performed in multiple views using a 5 Fr. 4.0 [place] catheter. Left Coronary Artery selective angiography was performed in multiple views using a 5 Fr. JL3.5 catheter. Right Coronary Artery selective angiography was then performed in multiple views using a 5 Fr. JR 4 catheter.The arterial sheath was pulled and a TR Band was applied for hemostasis w/ 13ml air CORONARY ANGIOGRAPHY DOMINANCE:? Right Dominant LEFT HEART ASSESSMENT Left Ventricular Ejection Fraction: Not assessed LEFT MAIN: Angiographically normal LEFT ANTERIOR DESCENDING ARTERY: MID LAD: pre stent: eccentric: 50 - 75 % Stenosis, Previously placed stent is pa tent, Mild luminal irregularities CIRCUMFLEX ARTERY: PROX CIRC: Mild luminal irregularities MID CIRC: Mild luminal irregularities OM 1: Proximal - eccentric: hazy: 85 % Stenosis OM 2: Mid - Mild luminal irregularities RIGHT CORONARY ARTERY: Mild luminal irregularities COMPLICATIONS No Complications PCI Cardiac Cath Report PCI Report: PCI cardiac cath report; 1.? Successful PCI and stent of 80% proximal OM1 stenosis, with predilatation using 2 x 15 mm balloon followed by placement of drug-eluting stent 2.5 x 22 mm Orsiro/DANIEL Followed by postdilatation using 3 x 15 mm NC emerge/MR?balloon, with reduction of stenosis to 0% and maintenance of VERONICA-3 flow 2.? IFR of mid LAD eccentric stenosis/intermediate around 50-60% stenosis with normal IFR 0.99.? Mid LAD stent is patent 3.? Placement of TR band to close the right radial artery arteriotomy site Preprocedure diagnosis; 65-year-old patient, with history of CAD, patient had a PCI and stent of distal LAD in 2017 using drug-eluting stent Patient presented with symptoms of chest pain and has a negative cardiac biomarkers with high sensitive troponin, subsequently he was evaluated further with nuclear stress test which is abnormal In addition to multiple other risk factor for CAD with a history of diabetes mellitus hypertension hyperlipidemia patient also had chronic pulmonary disease and hypercalcemia. Based on his clinical presentation he underwent cardiac catheterization by his primary base brander Dr. Min Left main normal angiographically, bifurcating into LAD and left circumflex.? 80% stenosis of the proximal OM1 branch diffuse disease. Mid LAD eccentric lesion intermediate around 50 to 60% noted and had significant 80% stenosis of a proximal OM1 RCA no significant coronary artery atherosclerosis noted.? LV systolic function preserved.? Patient was on Plavix and aspirin he was given additional doses of total 300 of Plavix today and aspirin regular Consent; Risk and benefit of procedure explained in detail patient agreed to proceed informed consent obtained Access; Right radial artery 6 [place] trauma sheath Interventional equipment; 1.? 6 [place] EBU guide catheter 2.? 0.014 run-through extra floppy 180 cm straight wire 3.? 2 x 15 mm emerge MR balloon 4.? 2.5 x 22 mm drug-eluting stent/DANIEL/Orsiro 5.? 3 x 15 mm NC Emerge balloon Procedure in detail; Under fluoroscopic guidance we will proceed with a 6 [place] 3.5 EBU guide advanced ascending aorta cannulated the left main without difficulty Following this angiographic view of the left system obtain, identified the lesion in the OM1 then we will proceed with run-through wire across the lesion followed by predilatation using 2 x 15 mm balloon Followed by placement of a drug-eluting stent 2.5 x 22 mm followed by postdilatation using 3 x 15 mm NC balloon/emerge MR up to 16 JULI and achieve excellent result with no complication Following this we proceeded with IFR wire normalized proximally and then across the lesion in the mid LAD and measures IFR which was normal 0.99. There were no change in the cardiac monitors patient did develop symptoms of chest pain which? resolved. Medication used in the Fireworks Assembly Supervisor: 1.? Heparin use as an anticoagulant he was given initially 7000 international unit and INR was 216 he was given additional 3000 units of heparin 2. patient was given a total of 300 of Plavix in addition to regular aspirin. Conclusion recommendations; Patient had successful PCI of OM1 branch with balloon dilatation followed by placement drug-eluting stent at the specified Evaluation of mid LAD by IFR wire was within normal 1.? Patient to continue on DAPT for 1 year with aspirin 81 mg in addition to Plavix 75 g daily 2.? Patient is scheduled for cardiac rehab program here at [facility] 3.? Patient to follow-up regularly with his primary base brander Dr. Min for continuation of cardiac care. No complication in the Fireworks Assembly Supervisor Ty Rocha MD,FAC,[facility] [place] Physical Exam Const alert, oriented x3 and no apparent distress Orientation / Consciousness: awake HEENT normocephalic, head/scalp atraumatic and hearing grossly normal bilaterally Eyes PERRL, EOMs intact bilaterally, conjunctivae normal and no scleral icterus Neck full ROM, supple and no JVD Carotids: normal carotid upstroke Resp normal respiratory effort and clear to auscultation bilaterally Cardio regular rate, regular rhythm, S1 normal heart sound and S2 normal heart sound GI normal to inspection, nondistended, normoactive bowel sounds Extremity Extremity Narrative: Right radial artery: Pulses 2+/4+: No bruits: No hematoma General Extremity: edema bilateral lower extremity Details: moderate Skin no rashes or lesions noted Psych mental status grossly normal Assessment & Plan Assessment/Plan (1) Chest pain: PLAN: The patient has undergone further noninvasive and invasive evaluation. This led to a diagnosis of progression of CAD. The patient subsequently received an LCx/OM PTCA/stent (please see official report). The patient will need to continue medical therapy including antiplatelet therapy without interruption-ideally for 1 year if possible. The patient will need continued future outpatient cardiovascular follow-up. (2) Atherosclerosis of coronary artery of [place] heart without angina pectoris: QUALIFIERS: Coronary Disease-Associated Artery/Lesion type: [place] artery Qualified Code(s): I25.10 - Atherosclerotic heart disease of [place] coronary artery without angina pectoris PLAN: He does have a history of CAD. He will need to continue medical management and follow-up. (3) History of coronary artery stent placement: PLAN: His CAD/PCI history was reviewed. He has undergone further evaluation with diagnostic cardiac catheterization and subsequent LCx/OM PCI. He will need to continue medical therapy including his antiplatelet therapy. (4) Hyperlipidemia: QUALIFIERS: Hyperlipidemia type: mixed hyperlipidemia Qualified Code(s): E78.2 - Mixed hyperlipidemia PLAN: He should continue medical management. (5) Essential (primary) hypertension: PLAN: His blood pressure will need to be monitored and he will continue medical therapy. (6) Diabetes: QUALIFIERS: Diabetes mellitus type: type 2 Diabetes mellitus snf insulin use: with snf use Diabetes mellitus complication status: with hyperglycemia Qualified Code(s): E11.65 - Type 2 diabetes mellitus with hyperglycemia; Z79.4 - residential (current) use of insulin PLAN: He will continue evaluation care per internal medicine. (7) Chronic hypoxemic respiratory failure: PLAN: He will need to continue evaluation by internal medicine and other specialist/subspecialist as deemed appropriate (8) Hypercalcemia: PLAN: He has been diagnosed with hypercalcemia. He has been undergoing noninvasive evaluation. He states he has additional noninvasive studies of his thyroid/parathyroid status coming up in the near future. He states he has not been told at this point in time that he will require any type of invasive evaluation/therapy. However, that could change depending upon his future studies. Addt'l Comments At the present time he will continue to be monitored. He will continue medical management. He will be enrolled in outpatient cardiac rehabilitation therapy to the best of his ability. He will need to continue future outpatient cardiovascular follow-up. He will continue his noncardiac care taken into consideration that he has a new PCI/DANIEL and that ideally he should not interrupt his antiplatelet therapy for minimum of a year if possible. This note was generated using a voice recognition system and there may be incorrect words, spelling or punctuation that were not noted when reviewing the office note prior to saving.
--- NOTE | 2021-10-12 13:43 | CRPHASE1_ITS ---
Patient Communication Former Patient:: Phase I, Phase II PHII Cardiac Rehab Discussed with Patient:: Yes Guide to Cardiac Rehab Given to Patient:: Yes Cardiac Rehab Facility Choice List Given to Patient:: Yes Choice Program [facility] CR PHII:: Communication Given to CR Choice Program Other:: Communication Given to CR Solar Pv Installer:: Ty Rocha Refer Phase II Cardiac Rehab:: Yes Sessions:: 36 sessions - 3 days/wk, 12 weeks Cardiac Rehabilitation Info Cardiac Rehabilitation Program Information: Cardiac Rehabilitation is important for patients like you who are recovering from a heart problem. Cardiac rehabilitation programs are recognized as integral to the continued care of the patient with coronary heart disease. The cardiac rehabilitation program is designed to optimize a patient's physical, psychological, and social functioning. Health career technical supervisor work in cardiac rehabilitation programs and assist you with getting the treatments you need to get stronger and healthier - like exercise, healthy eating habits, and medications. Cardiac rehabilitation has been show to help people with heart problems live longer and have better life enjoyment than people who do not go to cardiac rehabilitation. Please contact the Cardiac Rehabilitation Program at [facility] at in two weeks if you have not heard from them.
--- NOTE | 2021-10-12 13:43 | CRPH1.INSTRU ---
General Education CAD and cardiac anatomy and function:: Patient communicates acknowledgment Explanation of diagnoses and procedures:: Patient communicates acknowledgment Antiplatelet therapy: Patient communicates acknowledgment Smoking Patient Nicotine/Smoking Risk Factors Are:: Never smoked Dyslipidemia Patient Dyslipidemia Risk Factors Are:: Total Cholesterol, Triglycerides, HDL, LDL Recommendations Include:: Lipid profile provided, Reviewed NCEP/ATP guidelines, Therapeutic Lifestyle Change dietary guidelines Dyslipidemia Response Code:: Patient communicates acknowledgment Overweight/Obesity Patient Overweight/Obesity Risk Factors Are:: Obesity - > or = 30 Recommendations Include:: Weight loss of 5-10%, Reduced calorie diet, Exercise 5-7 times/week Overweight/Obesity:: Patient communicates acknowledgment Hypertension Recommendations Include:: BP <130/80 if diabetic, DASH dietary guidelines, Decrease/maintain normal body weight, Moderation of ETOH Hypertension:: Patient communicates acknowledgment Diabetes Patient Diabetes Risk Factors Are:: Elevated blood sugars Recommendations Include:: Maintain fasting blood sugars 70-110 md/dL, Maintain HgbA1c of 6% or less, Monitor blood sugar as prescribed, Diabetic dietary guidelines, Decrease/maintain body weight Diabetes:: Patient communicates acknowledgment Sedentary Patient Sedentary Risk Factors Are:: Lack of regular exercise Recommendations Include:: Aerobic exercise 5-7 times/week for 20-30 minutes continuously, Benefits of regular exercise, Discussed home walking program, Monitored Outpatient Cardiac Rehab Sedentary Response Code:: Patient communicates acknowledgment Stress Patient Stress Risk Factors Are:: Patient denies stress as a risk factor
[2021-10-12 16:55] LABS: Bedside Glucose 208 mg/dL (74-106)
[2021-10-12] MEDS: HYDROcodone Bitartrate/Apap 5/325 Tablet PO (16:58)
[2021-10-12] MEDS: Acetaminophen 325 MG Tablet 650 MG PO (17:32)
[2021-10-12] MEDS: Atorvastatin Calcium 40 MG Tablet PO (21:45)
[2021-10-12] MEDS: Paroxetine 20 MG Tablet 40 MG PO (21:45)
[2021-10-12 22:45] LABS: Bedside Glucose 207 mg/dL (74-106)
[2021-10-13] VITALS (10 sets, daily range): BP systolic 139–161; BP diastolic 65–79; PULSE 67–82; RESP 16; TEMP 36.7–37; O2SAT 95–99
[2021-10-13] MEDS: Acetaminophen 325 MG Tablet 650 MG PO ×3 (03:22→14:42)
[2021-10-13] MEDS: Morphine 2 MG/ML Syringe IV (04:46)
[2021-10-13] MEDS: 0.9% Normal Saline 1,000 ML 125 ML IV ×3 (05:56→22:26)
[2021-10-13] MEDS: HYDROcodone Bitartrate/Apap 5/325 Tablet PO ×2 (06:33→21:29)
[2021-10-13] MEDS: Insulin Lispro 100 UNIT/ML INSULN.PEN SC ×4 (06:33→21:30)
[2021-10-13 06:41] LABS: ALB/GLOB Ratio 1.1 RATIO (0.9-2.4); AST(SGOT) 17 U/L (15-37); Alanine Aminotransfer ALT/SGPT 40 U/L (16-61); Albumin, Serum 3.4 g/dL (3.2-5.0); Alkaline Phosphatase 56 U/L (45-117); Anion Gap 7 (5-15); BUN 12 mg/dL (7-18); BUN/Creat Ratio 13.7 RATIO (10-20); Chloride 108 mmol/L (98-107); Creatinine, Serum 0.88 mg/dL (0.70-1.30); EST Glomerular Filtration Rate 93 mL/min (>60); Est Glom Filt Rate - Afr Amer 112 mL/min (>60); Estimated Creatinine Clearance 87.56 ml/min; Glucose 198 mg/dL (74-106); Potassium 3.4 mmol/L (3.5-5.1); Protein, Total 6.4 g/dL (6.4-8.2); Sodium Level 140 mmol/L (136-145)
[2021-10-13 06:41] LABS: Bedside Glucose 165 mg/dL (74-106)
--- NOTE | 2021-10-13 08:40 | PN.CARD_ITS ---
Subjective Subjective The patient is awake and alert. He denies ongoing chest discomfort. Objective Data Vital Signs: Vital Signs Temp Pulse Resp BP Pulse Ox O2 Del Method FiO2 98.6 F 81 16 148/77 H 95 Room Air 21 10/13/21 03:18 10/13/21 07:00 10/13/21 03:18 10/13/21 03:18 10/13/21 07:20 10/13/21 07:48 10/12/21 00:06 Oxygen Delivery Method Room Air Weight: 269 lb 10.005 oz Body Mass Index (BMI) 38.5 Intake & Output: Intake and Output for Last 24 Hours 10/11/21 10/12/21 10/13/21 23:59 23:59 23:59 Intake Total 4470.83 / 4470.83 3634.42 / 3834.42 1400 / 1400 Output Total 1850 / 1850 3750 / 4475 1550 / 1550 Balance 2620.83 / 2620.83 -115.58 / -640.58 -150 / -150 Lab / Micro Data Result Diagrams: 10/11/21 03:32 10/13/21 05:28 Labs: Laboratory Results - last 24 hr 10/12/21 10:45: POC Glucose 172 H 10/12/21 16:03: POC Glucose 208 H 10/12/21 21:36: POC Glucose 207 H 10/13/21 05:28: WBC Cancelled, Corrected WBC Cancelled, RBC Cancelled, Hgb Cancelled, Hct Cancelled, MCV Cancelled, MCH Cancelled, MCHC Cancelled, RDW Std Deviation Cancelled, RDW Coeff of Thao Cancelled, Plt Count Cancelled, MPV Cancelled, Diff Path Review Cancelled 10/13/21 05:28: Sodium 140, Potassium 3.4 L, Chloride 108 H, Carbon Dioxide 25.0, Anion Gap 7, BUN 12, Creatinine 0.88, Estim Creat Clear Calc 87.56, Est GFR (MDRD) Af Amer 112, Est GFR (MDRD) Non-Af 93, BUN/Creatinine Ratio 13.7, Glucose 198 H, Calcium 12.0 H, Total Bilirubin 0.70, AST 17, ALT 40, Alkaline Phosphatase 56, Total Protein 6.4, Albumin 3.4, Globulin 3.0, Albumin/Globulin Ratio 1.1 10/13/21 06:32: POC Glucose 165 H Cardiology Labs/Tests 10/13/21 05:28: WBC Cancelled, Corrected WBC Cancelled, RBC Cancelled, Hgb Cancelled, Hct Cancelled, MCV Cancelled, MCH Cancelled, MCHC Cancelled, Plt Count Cancelled, MPV Cancelled 10/13/21 05:28: Sodium 140, Potassium 3.4 L, Chloride 108 H, Carbon Dioxide 25.0, Anion Gap 7, BUN 12, Creatinine 0.88, Est GFR (MDRD) Af Amer 112, Est GFR (MDRD) Non-Af 93, BUN/Creatinine Ratio 13.7, Glucose 198 H, Calcium 12.0 H, Total Bilirubin 0.70 Rhythm: Sinus rhythm EKG: Sinus rhythm; first-degree AV block; septal MT of indeterminate age cannot be excluded; nonspecific T wave abnormality : Physical Exam Const alert, oriented x3 and no apparent distress Orientation / Consciousness: awake HEENT normocephalic, head/scalp atraumatic and hearing grossly normal bilaterally Eyes PERRL, EOMs intact bilaterally, conjunctivae normal and no scleral icterus Neck full ROM, supple and no JVD Carotids: normal carotid upstroke Resp normal respiratory effort and clear to auscultation bilaterally Cardio regular rate, regular rhythm, S1 normal heart sound and S2 normal heart sound GI normal to inspection, nondistended, normoactive bowel sounds Extremity Extremity Narrative: Right radial artery: Pulses 2+/4+: No bruits: No hematoma General Extremity: edema bilateral lower extremity Details: moderate Skin no rashes or lesions noted Psych mental status grossly normal Assessment & Plan Assessment/Plan (1) Chest pain: PLAN: The patient has undergone further noninvasive and invasive evaluation. This led to a diagnosis of progression of CAD. The patient subsequently received an LCx/OM PTCA/stent (please see official report). The patient will need to continue medical therapy including antiplatelet therapy without interruption-ideally for 1 year if possible. The patient will need continued future outpatient cardiovascular follow-up. (2) Atherosclerosis of coronary artery of [place] heart without angina pectoris: QUALIFIERS: Coronary Disease-Associated Artery/Lesion type: [place] artery Qualified Code(s): I25.10 - Atherosclerotic heart disease of [place] coronary artery without angina pectoris PLAN: He does have a history of CAD. He will need to continue medical management and follow-up. (3) History of coronary artery stent placement: PLAN: His CAD/PCI history was reviewed. He has undergone further evaluation with diagnostic cardiac catheterization and subsequent LCx/OM PCI. He also underwent evaluation of the LAD with an FFR procedure. This was deemed negative. Thus he did not require additional PCI of the LAD. He will need to continue medical therapy including his antiplatelet therapy. (4) Hyperlipidemia: QUALIFIERS: Hyperlipidemia type: mixed hyperlipidemia Qualified Code(s): E78.2 - Mixed hyperlipidemia PLAN: He should continue medical management. (5) Essential (primary) hypertension: PLAN: His blood pressure will need to be monitored and he will continue medical therapy. (6) Diabetes: QUALIFIERS: Diabetes mellitus type: type 2 Diabetes mellitus fci insulin use: with fci use Diabetes mellitus complication status: with hyperglycemia Qualified Code(s): E11.65 - Type 2 diabetes mellitus with hyperglycemia; Z79.4 - intermediate designer (current) use of insulin PLAN: He will continue evaluation care per internal medicine. (7) Chronic hypoxemic respiratory failure: PLAN: He will need to continue evaluation by internal medicine and other specialist/subspecialist as deemed appropriate (8) Hypercalcemia: PLAN: He has been diagnosed with hypercalcemia. He has been undergoing noninvasive evaluation. He states he has additional noninvasive studies of his thyroid/parathyroid status coming up in the near future. He states he has not been told at this point in time that he will require any type of invasive evaluation/therapy. However, that could change depending upon his future studies. Addt'l Comments Overall, at the present time, the patient will continue cardiovascular medical management. As noted previously noted, he should not interrupt his antiplatelet therapy with respect to his aspirin and clopidogrel/Plavix for minimum of 1 year barring unforeseen circumstances. If he does require interruption of these medications to proceed with noncardiac evaluation then consideration will have to be given as to when this can occur. He should continue with outpatient cardiac rehabilitation as best as possible. He will need continued outpatient cardiovascular follow-up. This note was generated using a voice recognition system and there may be incorrect words, spelling or punctuation that were not noted when reviewing the office note prior to saving. Procedure Criteria Type of Procedure Procedure Type: Elective Elective Risks - COVID COVID Risk Discussion: The surgeon/proceduralist and patient have discussed in detail the risk of exposure to and/or potential harm posed by the COVID-19 virus with having a surgery/procedure at this time versus the risk of delaying the surgery/procedure. It is not possible to know either the risk of delaying the surgery or procedure or chance of getting an infection with perfect accuracy, but a joint decision was made between the patient and the surgeon/proceduralist to proceed at this time with the scheduled surgery/procedure as indicated on the consent form.
[2021-10-13] MEDS: Aspirin E.C. 81 MG Tablet PO (09:11)
[2021-10-13] MEDS: Clopidogrel Bisulfate 75 MG Tablet PO (09:11)
[2021-10-13] MEDS: Fenofibrate 145 MG Tablet PO (09:11)
[2021-10-13] MEDS: amLODIPine 10 MG Tablet PO (09:11)
[2021-10-13] MEDS: Ranolazine 500 MG Tablet PO ×2 (09:11→21:30)
[2021-10-13] MEDS: Metoprolol Tartrate 50 MG Tablet PO ×2 (09:11→22:25)
[2021-10-13] MEDS: Losartan Potassium 25 MG Tablet PO ×2 (09:11→21:30)
[2021-10-13] MEDS: Enoxaparin 40 MG/0.4 ML Syringe SC (09:12)
[2021-10-13] MEDS: Potassium Chloride Oral Tablet 20 MEQ 40 MEQ PO (09:12)
[2021-10-13] MEDS: Furosemide 40 MG/4 ML Vial IV ×2 (09:12→17:54)
[2021-10-13 09:28] LABS: Hematocrit 40.8 % (40-54); Hemoglobin 13.4 g/dL (13.0-16.5); Mean Corp Hgb Conc 32.8 g/dL (32-36); Mean Corpuscular Hgb 29.5 pg (27.0-32.0); Mean Corpuscular Volume 89.7 fL (80-94); Mean Platelet Vol. 9.9 fl (6.2-12.0); Platelet Count 247 K/mm3 (150-450); RBC Distribution Width CV 15.2 % (11.6-14.6); RBC Distribution Width SD 50.4 fl (35.1-43.9); Red Blood Count 4.55 M/mm3 (4.6-6.2); White Blood Count 10.4 K/mm3 (4.4-11.0)
--- NOTE | 2021-10-13 10:00 | EKG12_ITS ---
Test Reason : PCI Blood Pressure : / mmHG Vent. Rate : 063 BPM Atrial Rate : 063 BPM P-R Int : 260 ms QRS Dur : 108 ms QT Int : 434 ms P-R-T Axes : 079 -05 020 degrees QTc Int : 444 ms Sinus rhythm with 1st degree A-V block with Blocked Premature atrial complexes Septal infarct , age undetermined Abnormal ECG Confirmed by LIZZIE PIZANO, JEET ([id number]), acquisitions editor NAZ NORIEGA ([id number]) on 10/14/2021 9:14:33 AM Referred By: BAILEE Confirmed By:JEET SAMUEL MD
--- NOTE | 2021-10-13 11:05 | DCINST_ITS ---
Discharge Instructions Diet Discharge Diet: Low fat / Low cholesterol Activity Discharge Activity: Return to Normal Activity Dressing / Incision Call your doctor if you observe: Fever of 101 or Higher, Shortness of breath, Dizziness, Fainting spells, Swelling in the ankles, Chest pain and Increased palpitations (irregular heartbeat) Follow Up Care Test Results: Test results from this visit will be discussed in further detail at your follow- up appointment, if applicable. Discharge Plan Admission Admit Date/Time: 10/10/21 23:45 Attending Provider: Narendra Schwartz Primary Care Provider: Mery Raymond Consulting Providers: Purvi Jensen ; Hank Min Discharge Orders/Prescriptions Prescriptions: Continued trazodone 50 mg tablet 50 mg PO QHS PRN (Reason: Sleep) (DME) Handicap Placard See Rx Instructions .ROUTE .MEDSUPPLY Qty: 1 0RF Rx Instructions: As directed, length of time 3 years (DME) FreeStyle Tiffanie 2 [place] Misc See Rx Instructions .ROUTE .MEDSUPPLY Qty: 1 0RF Rx Instructions: As directed (DME) FreeStyle Tiffanie 2 Sensor Kit See Rx Instructions .ROUTE .MEDSUPPLY Qty: 2 6RF Rx Instructions: As directed (DME) pen needle, diabetic [BD Ultra-Fine Lorie Pen Needle] 32 gauge x 5/32 needle See Rx Instructions .ROUTE .MEDSUPPLY Qty: 360 5RF Rx Instructions: 4x/day hydrocodone-acetaminophen 5-325 mg tablet 1 tab PO BID PRN (Reason: Pain) atorvastatin 40 mg tablet 40 mg PO QHS Qty: 90 3RF Hold Instructions: Hold for 4 days meclizine 12.5 mg tablet 12.5 mg PO TID PRN PRN (Reason: vertigo) Qty: 10 0RF paroxetine HCl 40 mg tablet 40 mg PO DAILY Qty: 90 3RF Rx Instructions: TAKE 1 TABLET BY MOUTH ONCE DAILY Trulicity 1.5 mg/0.5 mL pen injector 1.5 mg subcut QWEEK fenofibrate micronized 200 mg capsule 200 mg PO DAILY Qty: 30 12RF bisacodyl 10 mg Suppository 10 mg ND DAILY PRN (Reason: Constipation) Enema 19-7 gram/118 mL Enema 118 ml ND DAILY PRN (Reason: Constipation) acetaminophen 500 mg Tablet 1,000 mg PO Q8 PRN (Reason: pain/fever) magnesium hydroxide [Milk of Magnesia] 400 mg/5 mL Suspension 30 ml PO DAILY PRN (Reason: Constipation) albuterol sulfate 90 mcg/actuation HFA aerosol inhaler 2 puff INHALATION Q4H PRN PRN (Reason: Sob &/Or Wheezing) Qty: 18 6RF (DME) OneTouch Verio test strips Strip See Rx Instructions .ROUTE .MEDSUPPLY Qty: 100 12RF Rx Instructions: test 4 times daily aspirin 81 mg tablet,chewable 81 mg PO DAILY@0800 Qty: 90 3RF amlodipine 10 mg tablet 10 mg PO DAILY Qty: 90 4RF losartan 25 mg tablet 25 mg PO DAILY Qty: 90 3RF metformin 1,000 mg tablet 1,000 mg PO BIDCM Qty: 180 3RF ranolazine 500 mg tablet extended release 12 hr 500 mg PO BID Qty: 180 3RF potassium chloride 20 mEq tablet,ER particles/crystals 40 meq PO TID 90 Days Qty: 540 1RF Rx Instructions: TAKE 2 TABLETS BY MOUTH THREE TIMES DAILY furosemide 20 mg tablet 60 mg PO BID 90 Days Qty: 540 3RF Humulin R U-500 (Conc) Kwikpen 500 unit/mL (3 mL) insulin pen 45 unit SUBCUT .TIDCM Qty: 8.1 1RF clopidogrel 75 mg tablet 75 mg PO DAILY Qty: 90 3RF nitroglycerin 0.4 mg tablet, sublingual 0.4 mg SUBLINGUAL Q5M PRN (Reason: Chest Pain) Qty: 25 4RF cholecalciferol (vitamin D3) 1,250 mcg (50,000 unit) capsule 1,250 mcg PO TUFR Qty: 24 1RF Changed metoprolol succinate 100 mg tablet extended release 24 hr 50 mg PO BID Qty: 180 3RF Referrals / Follow Up: Hank Min MD [STAFF PHYSICIAN] - Within 3 Months Mery Raymond MD [Primary Care Provider] - Within 1 Week Disposition Disposition (needs filled in before D/C Order can be placed): Home, Self Care
--- NOTE | 2021-10-13 11:47 | CASEMGMT ---
Social Work Consult: Transportation Referral source: Nursing staff This social work professor met with patient in room. Introduced self and social work professor role. Patient agreeable to speak with this social work professor. This social work professor broached conversation of transportation to home. Patient states I am not sure I can go home. Patient reports to be feeling weak and I won't be able to walk to my house. Patient inquired about discharging to a [facility] home, specifically [facility] I have been there before. This social work professor reports plan to speak with medical team. This social work professor notified Dr. Schwartz on above information. Physical therapy to evaluate patient. Will continue to follow. Karly LAMB, JARRETT
[2021-10-13 12:16] LABS: Bedside Glucose 277 mg/dL (74-106)
--- NOTE | 2021-10-13 12:48 | PN.HOSP_ITS ---
Subjective Subjective Doing well, denies any chest pain. Feels weak Objective Data Objective Data Vital Signs: Vital Signs Temp Pulse Resp BP Pulse Ox O2 Del Method FiO2 98.2 F 82 16 143/65 H 96 Room Air 21 10/13/21 09:11 10/13/21 09:11 10/13/21 09:11 10/13/21 09:11 10/13/21 09:11 10/13/21 09:11 10/12/21 00:06 Oxygen Delivery Method Room Air Weight: 269 lb 10.005 oz Body Mass Index (BMI) 38.5 Intake & Output: Intake and Output for Last 24 Hours 10/12/21 10/13/21 10/14/21 03:59 03:59 03:59 Intake Total 3710.83 / 3710.83 3594.42 / 3594.42 1560 / 1560 Output Total 2450 / 2450 3875 / 3875 5 / 2075 Balance 1260.83 / 1260.83 -280.58 / -280.58 -515 / -515 Lab / Micro Data Result Diagrams: 10/13/21 09:09 10/13/21 05:28 Labs: Laboratory Results - last 24 hr 10/12/21 16:03: POC Glucose 208 H 10/12/21 21:36: POC Glucose 207 H 10/13/21 05:28: WBC Cancelled, Corrected WBC Cancelled, RBC Cancelled, Hgb Cancelled, Hct Cancelled, MCV Cancelled, MCH Cancelled, MCHC Cancelled, RDW Std Deviation Cancelled, RDW Coeff of Thao Cancelled, Plt Count Cancelled, MPV Cancelled, Diff Path Review Cancelled 10/13/21 05:28: Sodium 140, Potassium 3.4 L, Chloride 108 H, Carbon Dioxide 25.0 , Anion Gap 7, BUN 12, Creatinine 0.88, Estim Creat Clear Calc 87.56, Est GFR (MDRD) Af Amer 112, Est GFR (MDRD) Non-Af 93, BUN/Creatinine Ratio 13.7, Glucose 198 H, Calcium 12.0 H, Total Bilirubin 0.70, AST 17, ALT 40, Alkaline Phosphatase 56, Total Protein 6.4, Albumin 3.4, Globulin 3.0, Albumin/Globulin Ratio 1.1 10/13/21 06:32: POC Glucose 165 H 10/13/21 09:09: WBC 10.4, RBC 4.55 L, Hgb 13.4, Hct 40.8, MCV 89.7, MCH 29.5, MCHC 32.8, RDW Std Deviation 50.4 H, RDW Coeff of Thao 15.2 H, Plt Count 247, MPV 9.9 10/13/21 11:14: POC Glucose 277 H Micro: Microbiology 10/10/21 21:10 Nasal Secretion SARS-CoV-2 & FLU Antigen (Rapid) - Final Physical Exam Narrative Const alert, oriented x3 and no apparent distress General Appearance: cooperative HEENT normocephalic and moist oral mucous membranes Eyes PERRL, EOMs intact bilaterally and conjunctivae normal Neck supple and no JVD Resp normal respiratory effort, no retractions, no use of accessory muscles and clear to auscultation bilaterally Auscultation: Negative for crackles, rales, rhonchi or wheezes Cardio regular rate, regular rhythm, S1 normal heart sound, S2 normal heart sound and no murmurs GI soft to palpation, non-tender and non-distended; Negative for hepatosplenomegaly Extremity no clubbing, cyanosis or edema Skin no rashes or lesions noted Neuro no focal motor deficits and no sensory deficits noted Psych affect normal Appearance: appropriate Assessment & Plan Assessment/Plan (1) Chest pain: PLAN: Plan 1. Chest pain/CAD status post stent/HTN/HLD/obesity/FAVIAN ? Stress test was abnormal and heart cath today demonstrated an 85% stenosis in OM1 therefore plan for stent today ? Appreciate cardiology's assistance ? He does have a history of a stent, will continue with his home medications ? Blood pressures are stable we will continue with his home blood pressure medications ? Continue with statin ? BMI of 38.5, discussed lifestyle modifications ? Continue with CPAP ? PT is recommending SNF placement 2. Hypercalcemia secondary to hyperparathyroidism ? He will be following up as an outpatient with Dr. Villalta for a thyroid ultrasound ? Continue with some IV fluids ? We will likely need parathyroidectomy 3. DM2 ? Hold his oral regimen ? Continue with his home insulin regimen ? Accu-Cheks ? Sliding scale insulin ? We will adjust as necessary 4. Anxiety/depression ? Stable ? Continue with his home medications 5. History of PE ? No longer on anticoagulation DVT: Lovenox Charges/Coding Visit Charges Inpatient E&M: 14958 Subs Hosp L2
--- NOTE | 2021-10-13 13:41 | CASEMGMT ---
Addendum entered by Isabella Schultz 10/14/21 09:01: Isabella Discharge resent over PT/OT as fax did not go through yesterday. Isabella Schultz Discharge Validation Manager Addendum entered by Isabella Schultz 10/13/21 15:19: Discharge Validation Manager Michelle from [facility] reached out. Patient has been accepted and pre-cert has been started Isabella Schultz Discharge Validation Manager Original Note: Discharge Validation Manager Isabella Discharge Validation Manager faxed referral over to Michelle at the [facility], Isabella Schultz Discharge Validation Manager
--- NOTE | 2021-10-13 14:20 | CASEMGMT ---
Social Work Per Physical Therapy, patient will require assisted placement. This social work specialist met with patient in room and confirmed patient desire to discharge to [facility]. Patient reports to have been at the [facility] in the past. This social work specialist notified Discharge Party Supply Specialist, Isabella. Isabella to make referral to the [facility] when therapy note are obtained. PLAN: [facility], pending acceptance and pre-cert. Karly LAMB, LEONCIO-S
[2021-10-13 16:51] LABS: Bedside Glucose 254 mg/dL (74-106)
[2021-10-13] MEDS: Paroxetine 20 MG Tablet 40 MG PO (21:29)
[2021-10-13] MEDS: Atorvastatin Calcium 40 MG Tablet PO (21:30)
[2021-10-13] MEDS: MELATONIN 3 MG TABLET PO (22:09)
[2021-10-13 22:20] LABS: Bedside Glucose 245 mg/dL (74-106)
[2021-10-14] VITALS (14 sets, daily range): BP systolic 124–161; BP diastolic 62–78; PULSE 61–80; RESP 16–18; TEMP 36.6–36.7; O2SAT 95–98
--- NOTE | 2021-10-14 01:27 | EKG12_ITS ---
Test Reason : Blood Pressure : / mmHG Vent. Rate : 069 BPM Atrial Rate : 069 BPM P-R Int : 298 ms QRS Dur : 106 ms QT Int : 400 ms P-R-T Axes : 068 011 004 degrees QTc Int : 428 ms Sinus rhythm with 1st degree A-V block Incomplete right bundle branch block Anteroseptal infarct , age undetermined Abnormal ECG Confirmed by LIZZIE PIZANO, JEET ([id number]), rewrite editor NAZ NORIEGA ([id number]) on 10/15/2021 9:50:17 AM Referred By: Confirmed By:JEET SAMUEL MD
[2021-10-14] MEDS: Insulin Lispro 100 UNIT/ML INSULN.PEN SC ×4 (06:29→21:25)
[2021-10-14] MEDS: 0.9% Normal Saline 1,000 ML 125 ML IV ×3 (06:29→22:31)
[2021-10-14 07:00] LABS: Bedside Glucose 200 mg/dL (74-106)
[2021-10-14] MEDS: Aspirin E.C. 81 MG Tablet PO (08:41)
[2021-10-14] MEDS: Fenofibrate 145 MG Tablet PO (08:42)
[2021-10-14] MEDS: HYDROcodone Bitartrate/Apap 5/325 Tablet PO ×2 (08:42→21:18)
[2021-10-14] MEDS: 0.9% Saline Lock 10 ML Syringe IV (09:32)
[2021-10-14] MEDS: Furosemide 40 MG/4 ML Vial IV ×2 (09:32→18:38)
[2021-10-14] MEDS: Enoxaparin 40 MG/0.4 ML Syringe SC (09:34)
[2021-10-14] MEDS: Clopidogrel Bisulfate 75 MG Tablet PO (09:34)
[2021-10-14] MEDS: Losartan Potassium 25 MG Tablet PO ×2 (09:34→21:19)
[2021-10-14] MEDS: Ranolazine 500 MG Tablet PO ×2 (09:34→21:19)
[2021-10-14] MEDS: amLODIPine 10 MG Tablet PO (09:34)
[2021-10-14] MEDS: Metoprolol Tartrate 50 MG Tablet PO ×2 (09:34→21:19)
[2021-10-14 12:10] LABS: Bedside Glucose 353 mg/dL (74-106)
--- NOTE | 2021-10-14 12:25 | PCM.PN.HOSP ---
Subjective Subjective Doing well, no issues overnight. Based on PT evaluation yesterday he does qualify for SNF and he would like to go says his legs and knees are weak. Objective Data Objective Data Vital Signs: Vital Signs Temp Pulse Resp BP Pulse Ox O2 Del Method FiO2 98.0 F 75 17 133/62 H 97 Room Air 21 10/14/21 09:28 10/14/21 09:34 10/14/21 09:28 10/14/21 09:28 10/14/21 09:28 10/14/21 09:28 10/12/21 00:06 Oxygen Delivery Method Room Air Weight: 271 lb 13.279 oz Body Mass Index (BMI) 38.5 Intake & Output: Intake and Output for Last 24 Hours 10/13/21 10/14/21 10/15/21 03:59 03:59 03:59 Intake Total 3594.42 / 3594.42 4391.67 / 4391.67 1500 / 1500 Output Total 3875 / 3875 4400 / 4400 325 / 325 Balance -280.58 / -280.58 -8.33 / -8.33 1175 / 1175 Lab / Micro Data Result Diagrams: 10/13/21 09:09 10/13/21 05:28 Labs: Laboratory Results - last 24 hr 10/13/21 16:29: POC Glucose 254 H 10/13/21 21:28: POC Glucose 245 H 10/14/21 06:28: POC Glucose 200 H 10/14/21 11:49: POC Glucose 353 H Micro: Microbiology 10/10/21 21:10 Nasal Secretion SARS-CoV-2 & FLU Antigen (Rapid) - Final Physical Exam Narrative Const alert, oriented x3 and no apparent distress General Appearance: cooperative HEENT normocephalic and moist oral mucous membranes Eyes PERRL, EOMs intact bilaterally and conjunctivae normal Neck supple and no JVD Resp normal respiratory effort, no retractions, no use of accessory muscles and clear to auscultation bilaterally Auscultation: Negative for crackles, rales, rhonchi or wheezes Cardio regular rate, regular rhythm, S1 normal heart sound, S2 normal heart sound and no murmurs GI soft to palpation, non-tender and non-distended; Negative for hepatosplenomegaly Extremity no clubbing, cyanosis or edema Skin no rashes or lesions noted Neuro no focal motor deficits and no sensory deficits noted Psych affect normal Appearance: appropriate Assessment & Plan Assessment/Plan (1) Chest pain: PLAN: Plan 1. Chest pain/CAD status post stent/HTN/HLD/obesity/FAVIAN ? Stress test was abnormal and heart cath today demonstrated an 85% stenosis in OM1 therefore plan for stent today ? Appreciate cardiology's assistance ? He does have a history of a stent, will continue with his home medications ? Blood pressures are stable we will continue with his home blood pressure medications ? Continue with statin ? BMI of 38.5, discussed lifestyle modifications ? Continue with CPAP ? PT is recommending SNF placement 2. Hypercalcemia secondary to hyperparathyroidism ? He will be following up as an outpatient with Dr. Villalta for a thyroid ultrasound ? Continue with some IV fluids ? We will likely need parathyroidectomy, I did notify Dr. Villalta that given his stent he will need to be on aspirin and Plavix essentially uninterrupted for a year 3. DM2 ? Hold his oral regimen ? Continue with his home insulin regimen ? Accu-Cheks ? Sliding scale insulin ? We will adjust as necessary 4. Anxiety/depression ? Stable ? Continue with his home medications 5. History of PE ? No longer on anticoagulation DVT: Lovenox Charges/Coding Visit Charges Inpatient E&M: 59664 Subs Hosp L2
[2021-10-14 16:01] LABS: Bedside Glucose 299 mg/dL (74-106)
[2021-10-14] MEDS: Acetaminophen 325 MG Tablet 650 MG PO (16:12)
[2021-10-14] MEDS: MELATONIN 3 MG TABLET PO (21:18)
[2021-10-14] MEDS: Paroxetine 20 MG Tablet 40 MG PO (21:19)
[2021-10-14] MEDS: Atorvastatin Calcium 40 MG Tablet PO (21:19)
[2021-10-14 21:45] LABS: Bedside Glucose 257 mg/dL (74-106)
[2021-10-15] VITALS (8 sets, daily range): BP systolic 146–158; BP diastolic 74–77; PULSE 55–69; RESP 18; TEMP 36.5–36.6; O2SAT 94–96
[2021-10-15] MEDS: 0.9% Normal Saline 1,000 ML 125 ML IV ×2 (06:46→14:48)
[2021-10-15 06:54] LABS: Absolute Lymphocyte Count 0.56 X10^3/uL (0.83-4.51); Absolute Neutrophil Count 5.6 X10^3/uL (2.0-7.7); Basophil# 0.02 X10^3/uL; Basophil% 0.3 % (0-1); Eosinophil# 0.16 X10^3/uL; Eosinophils% 2.2 % (0-5); Hematocrit 37.3 % (40-54); Hemoglobin 12.6 g/dL (13.0-16.5); Lymphocyte # 0.56 X10^3/ul (0.83-4.51); Lymphocyte % 7.6 % (19-41); Mean Corp Hgb Conc 33.8 g/dL (32-36); Mean Corpuscular Hgb 30.1 pg (27.0-32.0); Mean Corpuscular Volume 89.2 fL (80-94); Mean Platelet Vol. 9.8 fl (6.2-12.0); Monocyte# 1.07 X10^3/uL; Monocyte% 14.5 % (0-10); NRBC Flagged by Analyzer 0 % (0-5); Neutrophil # 5.55 X10^3/uL (2.7-7.7); POSITIVE DIFFERENTIAL YES; Platelet Count 252 K/mm3 (150-450); RBC Distribution Width CV 14.6 % (11.6-14.6); RBC Distribution Width SD 47.3 fl (35.1-43.9); Red Blood Count 4.18 M/mm3 (4.6-6.2); White Blood Count 7.4 K/mm3 (4.4-11.0)
[2021-10-15 07:09] LABS: Differential Indicated SCAN CRITERIA MET
[2021-10-15 07:22] LABS: Differential Comment SCANNED
[2021-10-15] MEDS: Insulin Lispro 100 UNIT/ML INSULN.PEN SC ×3 (07:39→16:07)
[2021-10-15] MEDS: Aspirin E.C. 81 MG Tablet PO (07:45)
[2021-10-15] MEDS: Fenofibrate 145 MG Tablet PO (07:45)
[2021-10-15 07:46] LABS: Anion Gap 5 (5-15); BUN 16 mg/dL (7-18); BUN/Creat Ratio 18.9 RATIO (10-20); Calcium,Total 12.1 mg/dL (8.5-10.1); Chloride 107 mmol/L (98-107); Creatinine, Serum 0.85 mg/dL (0.70-1.30); EST Glomerular Filtration Rate 96 mL/min (>60); Est Glom Filt Rate - Afr Amer 117 mL/min (>60); Estimated Creatinine Clearance 90.65 ml/min; Glucose 206 mg/dL (74-106); Potassium 3.1 mmol/L (3.5-5.1); Sodium Level 140 mmol/L (136-145)
[2021-10-15] MEDS: Losartan Potassium 25 MG Tablet PO (07:46)
[2021-10-15] MEDS: Enoxaparin 40 MG/0.4 ML Syringe SC (07:46)
[2021-10-15] MEDS: amLODIPine 10 MG Tablet PO (07:46)
[2021-10-15] MEDS: Furosemide 40 MG/4 ML Vial IV (07:46)
[2021-10-15] MEDS: Metoprolol Tartrate 50 MG Tablet PO (07:46)
[2021-10-15] MEDS: Clopidogrel Bisulfate 75 MG Tablet PO (07:47)
[2021-10-15] MEDS: Ranolazine 500 MG Tablet PO (07:47)
[2021-10-15] MEDS: HYDROcodone Bitartrate/Apap 5/325 Tablet PO ×2 (07:51→19:36)
[2021-10-15 08:05] LABS: Bedside Glucose 226 mg/dL (74-106)
--- NOTE | 2021-10-15 10:00 | EKG12_ITS ---
Test Reason : am ekg Blood Pressure : / mmHG Vent. Rate : 068 BPM Atrial Rate : 068 BPM P-R Int : 258 ms QRS Dur : 108 ms QT Int : 408 ms P-R-T Axes : 082 025 038 degrees QTc Int : 433 ms Sinus rhythm with 1st degree A-V block Incomplete right bundle branch block Anteroseptal infarct , age undetermined Abnormal ECG Confirmed by LIZZIE PIZANO, JEET ([id number]), editorial intern NAZ NORIEGA ([id number]) on 10/18/2021 10:34:57 AM Referred By: Confirmed By:JEET SAMUEL MD
[2021-10-15 10:55] LABS: Magnesium 2.2 mg/dL (1.6-2.6); Phosphorus 2.2 mg/dL (2.5-4.9)
[2021-10-15] MEDS: Acetaminophen 325 MG Tablet 650 MG PO (11:15)
[2021-10-15 11:16] LABS: Bedside Glucose 301 mg/dL (74-106)
--- NOTE | 2021-10-15 11:28 | PN.HOSP_ITS ---
Subjective Subjective Doing well today, no issues overnight. Awaiting pre-CERT. Objective Data Objective Data Vital Signs: Vital Signs Temp Pulse Resp BP Pulse Ox O2 Del Method FiO2 97.9 F 66 18 158/77 H 94 Room Air 21 10/15/21 07:42 10/15/21 11:21 10/15/21 07:42 10/15/21 07:42 10/15/21 07:42 10/15/21 08:31 10/12/21 00:06 Oxygen Delivery Method Room Air Weight: 273 lb 2.444 oz Body Mass Index (BMI) 38.5 Intake & Output: Intake and Output for Last 24 Hours 10/14/21 10/15/21 10/16/21 03:59 03:59 03:59 Intake Total 4391.67 / 4391.67 4480 / 4480 1000 / 1000 Output Total 4400 / 4400 3475 / 3475 Balance -8.33 / -8.33 1005 / 1005 1000 / 1000 Lab / Micro Data Result Diagrams: 10/15/21 05:35 10/15/21 05:35 Labs: Laboratory Results - last 24 hr 10/14/21 11:49: POC Glucose 353 H 10/14/21 15:33: POC Glucose 299 H 10/14/21 21:24: POC Glucose 257 H 10/15/21 05:35: WBC 7.4, RBC 4.18 L, Hgb 12.6 L, Hct 37.3 L, MCV 89.2, MCH 30.1, MCHC 33.8, RDW Std Deviation 47.3 H, RDW Coeff of Thao 14.6, Plt Count 252, MPV 9.8, Immature Gran % (Auto) 0.400, Neut % (Auto) 75.0 H, Lymph % (Auto) 7.6 L, [place] % (Auto) 14.5 H, Eos % (Auto) 2.2, Baso % (Auto) 0.3, Absolute Neuts (auto) 5.6, Absolute Lymphs (auto) 0.56 L, Nucleated RBC % 0, Differential Comment SCANNED 10/15/21 05:35: Sodium 140, Potassium 3.1 L, Chloride 107, Carbon Dioxide 28.0, Anion Gap 5, BUN 16, Creatinine 0.85, Estim Creat Clear Calc 90.65, Est GFR (MDRD) Af Amer 117, Est GFR (MDRD) Non-Af 96, BUN/Creatinine Ratio 18.9, Glucose 206 H, Calcium 12.1 H 10/15/21 05:35: Phosphorus 2.2 L, Magnesium 2.2 10/15/21 07:39: POC Glucose 226 H 10/15/21 10:42: POC Glucose 301 H Micro: Microbiology 10/10/21 21:10 Nasal Secretion SARS-CoV-2 & FLU Antigen (Rapid) - Final Physical Exam Narrative Const alert, oriented x3 and no apparent distress General Appearance: cooperative HEENT normocephalic and moist oral mucous membranes Eyes PERRL, EOMs intact bilaterally and conjunctivae normal Neck supple and no JVD Resp normal respiratory effort, no retractions, no use of accessory muscles and clear to auscultation bilaterally Auscultation: Negative for crackles, rales, rhonchi or wheezes Cardio regular rate, regular rhythm, S1 normal heart sound, S2 normal heart sound and no murmurs GI soft to palpation, non-tender and non-distended; Negative for hepatosplenomegaly Extremity no clubbing, cyanosis or edema Skin no rashes or lesions noted Neuro no focal motor deficits and no sensory deficits noted Psych affect normal Appearance: appropriate Assessment & Plan Assessment/Plan (1) Chest pain: PLAN: Plan 1. Chest pain/CAD status post stent/HTN/HLD/obesity/FAVIAN ? Stress test was abnormal and heart cath today demonstrated an 85% stenosis in OM1 therefore plan for stent today ? Appreciate cardiology's assistance ? He does have a history of a stent, will continue with his home medications ? Blood pressures are stable we will continue with his home blood pressure medications ? Continue with statin ? BMI of 38.5, discussed lifestyle modifications ? Continue with CPAP ? PT is recommending SNF placement 2. Hypercalcemia secondary to hyperparathyroidism ? He will be following up as an outpatient with Dr. Villalta for a thyroid ultrasound ? Continue with some IV fluids ? We will likely need parathyroidectomy, I did notify Dr. Villalta that given his stent he will need to be on aspirin and Plavix essentially uninterrupted for a year 3. DM2 ? Hold his oral regimen ? Continue with his home insulin regimen ? Accu-Cheks ? Sliding scale insulin ? We will adjust as necessary 4. Anxiety/depression ? Stable ? Continue with his home medications 5. History of PE ? No longer on anticoagulation DVT: Lovenox Charges/Coding Visit Charges Inpatient E&M: 45271 Subs Hosp L2
--- NOTE | 2021-10-15 15:37 | CASEMGMT ---
Discharge Log Rafter Michelle from the [facility] called. Pre-cert has been obtained. GLORIA Bar notified. Isabella Schultz Discharge Log Rafter
--- NOTE | 2021-10-15 15:42 | CASEMGMT ---
GLORIA let patient know he was approved to go to [place]. SW completed a PASRR as patient is observation status in the hospital. RN is obtaining a COVID test. Dipika FANG
--- NOTE | 2021-10-15 15:47 | CASEMGMT ---
Discharge Plate Shear Operator Isabella Kapoor Benefits Specialist Recruiter set up transportation with [facility] to [facility]. measurement supervisor time is at 19:00 Isabella Schultz Discharge Plate Shear Operator
--- NOTE | 2021-10-15 15:51 | CASEMGMT ---
RN and school secretary updated on patient's slate picker time of 7p. Plan: d/c to [facility] under skilled level of care on a PASRR as he was observation status in the hospital. [facility] transported via [facility] van. Dipika FANG
--- NOTE | 2021-10-15 15:58 | CASEMGMT ---
GLORIA notified Michelle dorantes Higgins of bean picker machine operator time. Dipika Orr PRECINCT CAPTAIN SUPERVISOR UNDERWRITING CLERKS
--- NOTE | 2021-10-15 16:07 | PCM.TXEXTCAR ---
Diet Diet Order/Speech Therapy: 10/12/21 10:12 Diet: Cardiac - Heart Healthy Is pt able to select menu?: Yes Routine Orders/Code Status Routine Lab Work: CBC and BMP Code Status: Full Code Wound(s) right radial: Wound Type: Puncture Therapies Physical Therapy: Eval and Treat Occupational Therapy: Eval and Treat Problem/Diagnosis (1) Chest pain: Status: Acute Code(s): R07.9 - Chest pain, unspecified Plan 1. Chest pain/CAD status post stent/HTN/HLD/obesity/FAVIAN ? Stress test was abnormal and heart cath today demonstrated an 85% stenosis in OM1 therefore plan for stent today ? Appreciate cardiology's assistance ? He does have a history of a stent, will continue with his home medications ? Blood pressures are stable we will continue with his home blood pressure medications ? Continue with statin ? BMI of 38.5, discussed lifestyle modifications ? Continue with CPAP ? PT is recommending SNF placement 2. Hypercalcemia secondary to hyperparathyroidism ? He will be following up as an outpatient with Dr. Villalta for a thyroid ultrasound ? Continue with some IV fluids ? We will likely need parathyroidectomy, I did notify Dr. Villalta that given his stent he will need to be on aspirin and Plavix essentially uninterrupted for a year 3. DM2 ? Hold his oral regimen ? Continue with his home insulin regimen ? Accu-Cheks ? Sliding scale insulin ? We will adjust as necessary 4. Anxiety/depression ? Stable ? Continue with his home medications 5. History of PE ? No longer on anticoagulation DVT: Lovenox Allergies/Procedures Done in Hospital Allergies No Known Allergies Allergy (Verified 10/05/21 12:56) Procedures: Cardiac catheterization and Nuclear Stress Test Type of Care/Length of Stay Estimated LOS: Convalescent Care Less Than 30 days Type of Care Needed: Skilled Rehab Potential: Good Prognosis: Good Additional Orders/Day of Discharge Day of Discharge: 10/15/21 Discharge Plan Admission Admit Date/Time: 10/10/21 23:45 Attending Provider: Narendra Schwartz Primary Care Provider: Mery Raymond Consulting Providers: Purvi Jensen ; Hank Min Discharge Orders/Prescriptions Prescriptions: Continued trazodone 50 mg tablet 50 mg PO QHS PRN (Reason: Sleep) (DME) Handicap Placard See Rx Instructions .ROUTE .MEDSUPPLY Qty: 1 0RF Rx Instructions: As directed, length of time 3 years (DME) FreeStyle Tiffanie 2 [place] Misc See Rx Instructions .ROUTE .MEDSUPPLY Qty: 1 0RF Rx Instructions: As directed (DME) FreeStyle Tiffanie 2 Sensor Kit See Rx Instructions .ROUTE .MEDSUPPLY Qty: 2 6RF Rx Instructions: As directed (DME) pen needle, diabetic [BD Ultra-Fine Lorie Pen Needle] 32 gauge x 5/32 needle See Rx Instructions .ROUTE .MEDSUPPLY Qty: 360 5RF Rx Instructions: 4x/day hydrocodone-acetaminophen 5-325 mg tablet 1 tab PO BID PRN (Reason: Pain) atorvastatin 40 mg tablet 40 mg PO QHS Qty: 90 3RF Hold Instructions: Hold for 4 days meclizine 12.5 mg tablet 12.5 mg PO TID PRN PRN (Reason: vertigo) Qty: 10 0RF paroxetine HCl 40 mg tablet 40 mg PO DAILY Qty: 90 3RF Rx Instructions: TAKE 1 TABLET BY MOUTH ONCE DAILY Trulicity 1.5 mg/0.5 mL pen injector 1.5 mg subcut QWEEK fenofibrate micronized 200 mg capsule 200 mg PO DAILY Qty: 30 12RF bisacodyl 10 mg Suppository 10 mg DC DAILY PRN (Reason: Constipation) Enema 19-7 gram/118 mL Enema 118 ml DC DAILY PRN (Reason: Constipation) acetaminophen 500 mg Tablet 1,000 mg PO Q8 PRN (Reason: pain/fever) magnesium hydroxide [Milk of Magnesia] 400 mg/5 mL Suspension 30 ml PO DAILY PRN (Reason: Constipation) albuterol sulfate 90 mcg/actuation HFA aerosol inhaler 2 puff INHALATION Q4H PRN PRN (Reason: Sob &/Or Wheezing) Qty: 18 6RF (DME) OneTouch Verio test strips Strip See Rx Instructions .ROUTE .MEDSUPPLY Qty: 100 12RF Rx Instructions: test 4 times daily aspirin 81 mg tablet,chewable 81 mg PO DAILY@0800 Qty: 90 3RF amlodipine 10 mg tablet 10 mg PO DAILY Qty: 90 4RF losartan 25 mg tablet 25 mg PO DAILY Qty: 90 3RF metformin 1,000 mg tablet 1,000 mg PO BIDCM Qty: 180 3RF ranolazine 500 mg tablet extended release 12 hr 500 mg PO BID Qty: 180 3RF potassium chloride 20 mEq tablet,ER particles/crystals 40 meq PO TID 90 Days Qty: 540 1RF Rx Instructions: TAKE 2 TABLETS BY MOUTH THREE TIMES DAILY furosemide 20 mg tablet 60 mg PO BID 90 Days Qty: 540 3RF Humulin R U-500 (Conc) Kwikpen 500 unit/mL (3 mL) insulin pen 45 unit SUBCUT .TIDCM Qty: 8.1 1RF clopidogrel 75 mg tablet 75 mg PO DAILY Qty: 90 3RF cholecalciferol (vitamin D3) 1,250 mcg (50,000 unit) capsule 1,250 mcg PO TUFR Qty: 24 1RF Changed metoprolol succinate 100 mg tablet extended release 24 hr 50 mg PO BID Qty: 180 3RF No Action nitroglycerin 0.4 mg tablet, sublingual 0.4 mg SUBLINGUAL Q5M PRN (Reason: Chest Pain) Qty: 25 4RF Referrals / Follow Up: Hank Min MD [STAFF PHYSICIAN] - 01/17/22 11:00 am Mery Raymond MD [Primary Care Provider] - Within 1 Week Disposition Disposition (needs filled in before D/C Order can be placed): Shelter Facility
--- NOTE | 2021-10-15 16:11 | DS.PCM_ITS ---
Providers Date of Admission: 10/10/21 Primary Care Physician: Mery Raymond MD Consultations 10/11/21 12:43 Consult: Cardiology Routine Consulting Provider: Hank Min Reason for Consult: Abnormal stress EMERGENT Consult: No MD Notified: Yes Date Notified: 10/11/21 Time Notified: 12:43 Method of Notification: Verbal Reason For Visit: CHEST PAIN, HYPERCALEMIA Diagnosis Discharge Diagnosis (1) Chest pain: Status: Acute Code(s): R07.9 - Chest pain, unspecified Plan 1. Chest pain/CAD status post stent/HTN/HLD/obesity/FAVIAN ? Stress test was abnormal and heart cath today demonstrated an 85% stenosis in OM1 therefore plan for stent today ? Appreciate cardiology's assistance ? He does have a history of a stent, will continue with his home medications ? Blood pressures are stable we will continue with his home blood pressure medications ? Continue with statin ? BMI of 38.5, discussed lifestyle modifications ? Continue with CPAP ? PT is recommending SNF placement 2. Hypercalcemia secondary to hyperparathyroidism ? He will be following up as an outpatient with Dr. Villalta for a thyroid ultrasound ? Continue with some IV fluids ? We will likely need parathyroidectomy, I did notify Dr. Villalta that given his stent he will need to be on aspirin and Plavix essentially uninterrupted for a year 3. DM2 ? Hold his oral regimen ? Continue with his home insulin regimen ? Accu-Cheks ? Sliding scale insulin ? We will adjust as necessary 4. Anxiety/depression ? Stable ? Continue with his home medications 5. History of PE ? No longer on anticoagulation DVT: Lovenox Medications at Discharge Home Medications albuterol sulfate 90 mcg/actuation aerosol inhaler 2 puff inhalation Q4H PRN PRN Sob &/Or Wheezing #18 grams 04/08/19 trazodone 50 mg tablet 50 mg PO QHS PRN Sleep 01/13/20 Handicap Placard #1 ea 04/08/20 blood sugar diagnostic (OneTouch Verio test strips) #100 ea 11/23/20 aspirin 81 mg chewable tablet 81 mg PO DAILY@0800 HEART HEALTH #90 tabs 11/25/20 amlodipine 10 mg tablet 10 mg PO DAILY BLOOD PRESSURE #90 tabs 12/18/20 losartan 25 mg tablet 25 mg PO DAILY #90 tabs 01/12/21 metformin 1,000 mg tablet 1,000 mg PO BIDCM DIABETES #180 tabs 01/12/21 ranolazine 500 mg tablet,extended release,12 hr 500 mg PO BID angina #180 tabs 02/04/21 flash glucose scanning reader (FreeStyle Tiffanie 2 [place]) #1 ea 02/16/21 flash glucose sensor (FreeStyle Tiffanie 2 Sensor) #2 ea 02/16/21 pen needle, diabetic 32 gauge x 5/32 (BD Ultra-Fine Lorie Pen Needle) #360 ea 02/16/21 paroxetine HCl 40 mg tablet 40 mg PO DAILY depression #90 tabs 07/08/21 fenofibrate micronized 200 mg capsule 200 mg PO DAILY #30 caps 07/30/21 acetaminophen 500 mg tablet 1,000 mg PO Q8 PRN pain/fever 08/23/21 bisacodyl 10 mg rectal suppository 10 mg HI DAILY PRN Constipation 08/23/21 magnesium hydroxide 400 mg/5 mL oral suspension (Milk of Magnesia) 30 ml PO DAILY PRN Constipation 08/23/21 sodium phosphates 19 gram-7 gram/118 mL enema (Enema) 118 ml HI DAILY PRN Constipation 08/23/21 potassium chloride 20 mEq tablet,extended release(part/cryst) 40 meq PO TID potassium 90 days #540 tabs 08/24/21 furosemide 20 mg tablet 60 mg PO BID 90 days #540 tabs 08/27/21 dulaglutide 1.5 mg/0.5 mL subcutaneous pen injector (Trulicity) 1.5 mg subcut QWEEK 09/01/21 insulin regular hum U-500 conc (Humulin R U-500 (Conc) Insulin Kwikpen) 45 unit (0.09 mL) subcut .TIDCM #8.1 mL 09/02/21 clopidogrel 75 mg tablet 75 mg PO DAILY BLOOD THINNER #90 tabs 09/27/21 atorvastatin 40 mg tablet 40 mg PO QHS CHOLESTEROL #90 tabs 10/05/21 hydrocodone-acetaminophen 5-325mg 5mg-325mg 1 tab PO BID PRN Pain 10/05/21 meclizine 12.5 mg tablet 12.5 mg PO TID PRN PRN vertigo #10 tabs 10/05/21 cholecalciferol (vitamin D3) 1,250 mcg (50,000 unit) capsule 1,250 mcg PO TUFR #24 caps 10/06/21 metoprolol succinate 100 mg tablet,extended release 24 hr 50 mg PO BID BLOOD PRESSURE #180 tabs 10/13/21 nitroglycerin 0.4 mg sublingual tablet 0.4 mg sublingual Q5M PRN Chest Pain #25 tabs 10/15/21 Hospital Course Operations None Procedures Cardiac catheterization and Nuclear stress test Summary of Care Provided Minutes Spent on Discharge: 45 Hospital Course: Per HPI: The patient is a 65 y/o M w/ PMHx: Hyperparathyroidism with Hyperca lcemia, Diabetes mellitus type II poorly controlled per records, HTN, HLD, Obesity, FAVIAN on CPAP q HS, Hx VTE w/ DVT, PE, Anxiety and Depression, CAD s/p PCI PTCA/DANIEL LAD 2016, Chronic hypoxic respiratory failure (3L NCx) 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 Patient reports also intermittent headaches as well as myalgias although primarily in his shoulders in addition to loose stool x1 with occasional cough.? He does report that he was exposed to a nephew had COVID.? He has had 2 COVID vaccines and one booster.? Patient does report that he was supposed to have a stress test previously but missed it secondary to his most recent hospitalization.? He does report that he is follow- up with Dr. Villalta for surgical intervention for his hyperparathyroidism and his upcoming thyroid ultrasound on 10/18 in addition to follow-up with his PCP on 10/13/2021.? He said that he had missed several visits because he did not have rides but this has been corrected.? Work-up in the ED included T97.8, heart rate 81, BP 167/94, respiratory rate 20, 98% on room air, with WC 7.5, hemoglobin 15.2, platelet 273 without marked shift, BMP with glucose 115, calcium 13.1, magnesium 2.2, troponin 26, BNP 77.2, chest x-ray with degenerative changes with no acute cardiopulmonary findings, CT of the brain with chronic involutional changes without any acute evidence of acute intracranial or calvarial abnormality, EKG with SR with nonspecific changes without acute evidence of ischemia with no marked change from prior, COVID rapid negative. Hospital Course: 1.? Chest pain/CAD status post stent/HTN/HLD/obesity/FAVIAN ? Stress test was abnormal and heart cath today demonstrated an 85% stenosis in OM1 therefore plan for stent today ? Appreciate cardiology's assistance ? He does have a history of a stent, will continue with his home medications ? Blood pressures are stable we will continue with his home blood pressure me dications ? Continue with statin ? BMI of 38.5, discussed lifestyle modifications ? Continue with CPAP ? PT is recommending SNF placement ? Discussed with him the plan for discharge today he expressed understanding of the risk benefits of going to SNF and would like to go to SNF today to start rehab. He did have his phosphorus and potassium replaced today and I do recommend following up with BMP and CBC while at the [facility]. 2.? Hypercalcemia secondary to hyperparathyroidism ? He will be following up as an outpatient with Dr. Villalta for a thyroid ultrasound ? We will likely need parathyroidectomy, I did notify Dr. Villalta that given his stent he will need to be on aspirin and Plavix essentially uninterrupted for a year 3.? DM2 ? Hold his oral regimen can resume his home medications on discharge ? Continue with his home insulin regimen ? Accu-Cheks ? Sliding scale insulin ? We will adjust as necessary 4.? Anxiety/depression ? Stable ? Continue with his home medications 5.? History of PE ? No longer on anticoagulation Weight / BMI Weight Weight: 273 lb 2.444 oz Body Mass Index (BMI) 38.5 ABG / Lab / Microbiology Data Result Diagrams: 10/15/21 05:35 10/15/21 05:35 Laboratory: Laboratory Results - last 24 hr 10/14/21 21:24: POC Glucose 257 H 10/15/21 05:35: WBC 7.4, RBC 4.18 L, Hgb 12.6 L, Hct 37.3 L, MCV 89.2, MCH 30.1, MCHC 33.8, RDW Std Deviation 47.3 H, RDW Coeff of Thao 14.6, Plt Count 252, MPV 9.8, Immature Gran % (Auto) 0.400, Neut % (Auto) 75.0 H, Lymph % (Auto) 7.6 L, Cochran % (Auto) 14.5 H, Eos % (Auto) 2.2, Baso % (Auto) 0.3, Absolute Neuts (auto) 5.6, Absolute Lymphs (auto) 0.56 L, Nucleated RBC % 0, Differential Comment SCANNED 10/15/21 05:35: Sodium 140, Potassium 3.1 L, Chloride 107, Carbon Dioxide 28.0, Anion Gap 5, BUN 16, Creatinine 0.85, Estim Creat Clear Calc 90.65, Est GFR (MDRD) Af Amer 117, Est GFR (MDRD) Non-Af 96, BUN/Creatinine Ratio 18.9, Glucose 206 H, Calcium 12.1 H 10/15/21 05:35: Phosphorus 2.2 L, Magnesium 2.2 10/15/21 07:39: POC Glucose 226 H 10/15/21 10:42: POC Glucose 301 H Microbiology: Microbiology 10/10/21 21:10 Nasal Secretion SARS-CoV-2 & FLU Antigen (Rapid) - Final D/C Instructions Discharge Diet: Low fat / Low cholesterol Call your doctor if you observe: Fever of 101 or Higher, Shortness of breath, Dizziness, Fainting spells, Swelling in the ankles, Chest pain and Increased palpitations (irregular heartbeat) Meaningful Use Info Meaningful Use Diagnoses (Choose all that apply): None applicable Discharge Plan Admission Admit Date/Time: 10/10/21 23:45 Attending Provider: Narendra Schwartz Primary Care Provider: Mery Raymond Consulting Providers: Purvi Jensen ; Hank Min Discharge Orders/Prescriptions Prescriptions: Continued trazodone 50 mg tablet 50 mg PO QHS PRN (Reason: Sleep) (DME) Handicap Placard See Rx Instructions .ROUTE .MEDSUPPLY Qty: 1 0RF Rx Instructions: As directed, length of time 3 years (DME) FreeStyle Tiffanie 2 [place] Misc See Rx Instructions .ROUTE .MEDSUPPLY Qty: 1 0RF Rx Instructions: As directed (DME) FreeStyle Tiffanie 2 Sensor Kit See Rx Instructions .ROUTE .MEDSUPPLY Qty: 2 6RF Rx Instructions: As directed (DME) pen needle, diabetic [BD Ultra-Fine Lorie Pen Needle] 32 gauge x 5/32 needle See Rx Instructions .ROUTE .MEDSUPPLY Qty: 360 5RF Rx Instructions: 4x/day hydrocodone-acetaminophen 5-325 mg tablet 1 tab PO BID PRN (Reason: Pain) atorvastatin 40 mg tablet 40 mg PO QHS Qty: 90 3RF Hold Instructions: Hold for 4 days meclizine 12.5 mg tablet 12.5 mg PO TID PRN PRN (Reason: vertigo) Qty: 10 0RF paroxetine HCl 40 mg tablet 40 mg PO DAILY Qty: 90 3RF Rx Instructions: TAKE 1 TABLET BY MOUTH ONCE DAILY Trulicity 1.5 mg/0.5 mL pen injector 1.5 mg subcut QWEEK fenofibrate micronized 200 mg capsule 200 mg PO DAILY Qty: 30 12RF bisacodyl 10 mg Suppository 10 mg HI DAILY PRN (Reason: Constipation) Enema 19-7 gram/118 mL Enema 118 ml HI DAILY PRN (Reason: Constipation) acetaminophen 500 mg Tablet 1,000 mg PO Q8 PRN (Reason: pain/fever) magnesium hydroxide [Milk of Magnesia] 400 mg/5 mL Suspension 30 ml PO DAILY PRN (Reason: Constipation) albuterol sulfate 90 mcg/actuation HFA aerosol inhaler 2 puff INHALATION Q4H PRN PRN (Reason: Sob &/Or Wheezing) Qty: 18 6RF (DME) OneTouch Verio test strips Strip See Rx Instructions .ROUTE .MEDSUPPLY Qty: 100 12RF Rx Instructions: test 4 times daily aspirin 81 mg tablet,chewable 81 mg PO DAILY@0800 Qty: 90 3RF amlodipine 10 mg tablet 10 mg PO DAILY Qty: 90 4RF losartan 25 mg tablet 25 mg PO DAILY Qty: 90 3RF metformin 1,000 mg tablet 1,000 mg PO BIDCM Qty: 180 3RF ranolazine 500 mg tablet extended release 12 hr 500 mg PO BID Qty: 180 3RF potassium chloride 20 mEq tablet,ER particles/crystals 40 meq PO TID 90 Days Qty: 540 1RF Rx Instructions: TAKE 2 TABLETS BY MOUTH THREE TIMES DAILY furosemide 20 mg tablet 60 mg PO BID 90 Days Qty: 540 3RF Humulin R U-500 (Conc) Kwikpen 500 unit/mL (3 mL) insulin pen 45 unit SUBCUT .TIDCM Qty: 8.1 1RF clopidogrel 75 mg tablet 75 mg PO DAILY Qty: 90 3RF cholecalciferol (vitamin D3) 1,250 mcg (50,000 unit) capsule 1,250 mcg PO TUFR Qty: 24 1RF Changed metoprolol succinate 100 mg tablet extended release 24 hr 50 mg PO BID Qty: 180 3RF No Action nitroglycerin 0.4 mg tablet, sublingual 0.4 mg SUBLINGUAL Q5M PRN (Reason: Chest Pain) Qty: 25 4RF Referrals / Follow Up: Hank Min MD [STAFF PHYSICIAN] - 01/17/22 11:00 am Mery Raymond MD [Primary Care Provider] - Within 1 Week Disposition Disposition (needs filled in before D/C Order can be placed): [facility] Facility Charges/Coding Visit Charges OBSV E&M: 84137 Observation care discharge
[2021-10-15 16:30] LABS: Bedside Glucose 271 mg/dL (74-106)
--- NOTE | 2021-10-15 17:49 | NURSING ---
Report called to [facility].
== END 2021-10-15 20:58 ==
LOC: ED 23:51 → PCU 10-11 00:07
PROVIDERS: Internal Medicine Interventional Cardiology; Admitting Provider Family Medicine; Emergency Provider Emergency Medicine; PCP Internal Medicine; Visit Provider Family Medicine
DX: I25.119 Atherosclerotic heart disease of native coronary artery with unspecified angina pectoris (principal); I27.20 Pulmonary hypertension, unspecified; E66.01 Morbid (severe) obesity due to excess calories; E21.3 Hyperparathyroidism, unspecified; E11.9 Type 2 diabetes mellitus without complications; Z79.4 Long term (current) use of insulin; G89.29 Other chronic pain; E78.5 Hyperlipidemia, unspecified; R51.9 Headache, unspecified; R94.39 Abnormal result of other cardiovascular function study; E83.52 Hypercalcemia; I10 Essential (primary) hypertension; Z68.38 Body mass index [BMI] 38.0-38.9, adult; R53.1 Weakness; Z79.02 Long term (current) use of antithrombotics/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; Z79.82 Long term (current) use of aspirin; R19.7 Diarrhea, unspecified; F41.9 Anxiety disorder, unspecified; F32.A Depression, unspecified; Z86.711 Personal history of pulmonary embolism; Z79.899 Other long term (current) drug therapy; Z86.718 Personal history of other venous thrombosis and embolism; Z20.822 Contact with and (suspected) exposure to COVID-19; M19.90 Unspecified osteoarthritis, unspecified site; G47.33 Obstructive sleep apnea (adult) (pediatric); R06.89 Other abnormalities of breathing
CPT/HCPCS: 36415; 70450; 71045; 78452; 80048; 80053; 80061; 82962; 83735; 83880; 84100; 84484; 85025; 85027; 87426; 87428; 92928; 93005; 93017; 93454; 93571; 94002; 96361; 96365; 96366; 96372; 96375; 96376; 97110; 97116; 97162; 97166; 97535; 99152; 99153; 99218; 99285; A9500; C1874; J7030; J7050; A4216; C1725; C1769; C1887; C1894; C9600; G0378; J1940; J2785; Q9967

== ENCOUNTER → 2021-10-28 | Outpatient (CLI) | payer MEDICARE, SELFPAY ==
[2021-05-11 12:06] VITALS: BMI 43.3
--- NOTE | 2021-10-28 10:39 | US_ITS ---
STUDY: THYROID ULTRASOUND REASON FOR EXAM: Male, 65 years old. Primary hyperparathyroidism TECHNIQUE: Ultrasound evaluation of the thyroid was performed with real-time and static preston-scale imaging. COMPARISON: None. FINDINGS: RIGHT LOBE: The right lobe of the thyroid gland measures 4.1 cm x 1.5 cm x 1.5 cm. There is a homogeneous echotexture. There are no demonstrated solid, cystic or complex lesions. LEFT LOBE: The left lobe of the thyroid gland measures 4 cm x 2.1 cm x 1.8 cm. There is a homogeneous echotexture. 2 colloid cysts are seen. The larger measures 5 mm x 6 mm x 4 mm. ISTHMUS: The isthmus measures 2.2 mm. The regional lymph nodes are normal. US/Thyroid IMPRESSION: There are 2 subcentimeter colloid cysts in the left lobe of the thyroid. The parathyroid glands were not visualized. Electronically Signed: Rodrigo Suarez MD at 14:14 EDT ,
--- NOTE | 2021-10-28 10:55 | BD_ITS ---
STUDY: DUAL ENERGY X-RAY ABSORPTIOMETRY / DXA REASON FOR EXAM: Male, 65 years old. E21.0 TECHNIQUE: Bone Mineral Density (BMD) measurements of lumbar spine and right forearm were obtained. Patient status post bilateral hip replacement. COMPARISON: None. FINDINGS: Lumbar Spine (L1-L4): g/cm2 (1.247) / T-score (1.4) / Z-score (2.2) Findings are suggestive of normal bone density with a low fracture risk. Right Forearm: g/cm2 (0.622) / T-score (-1.2) / Z-score (-0.3) BD/Dexa Bone Density Study IMPRESSION: The patient is considered osteopenic as outlined below according to World Nicola Organization (WHO) criteria with a low fracture risk. Reference Information: The T-score is the number of standard deviations above or below the standard which is normal for young adults at their peak bone mineral density. The World Health Organization (WHO) interprets the T-scores as follows: Above -1 Normal bone density Between -1 and -2.5 Osteopenia Equal to / or below -2.5 Osteoporosis As a practical clinical guideline, osteopenia may be graded as follows: Mild -1 through -1.5 Moderate -1.6 through -2.0 Severe -2.1 through -2.4 The Z-score is the number of standard deviations above or below age-matched controls. A Z-score of less than -1.5 would be considered abnormal. References: 1. NIH Osteoporosis and Related Bone Diseases www osteo.org 2. International Society for Clinical Densitometry www iscd.org 3. National Osteoporosis Foundation www nof.org Electronically Signed: Rodrigo Suarez MD at 15:08 EDT ,
== END | disposition home or self-care (01) ==
LOC: US 10:35
PROVIDERS: PCP Internal Medicine; Referring Provider Surgery; Visit Provider Surgery
DX: E21.0 Primary hyperparathyroidism (principal); M85.80 Other specified disorders of bone density and structure, unspecified site
CPT/HCPCS: 76536; 77080

== ENCOUNTER → 2021-11-15 | Outpatient (CLI) | payer MEDICARE, SELFPAY ==
[2021-11-05 09:04] VITALS: BMI 43.3
[2021-11-15 15:53] LABS: Vitamin D,25 Hydroxy 30.1 ng/mL
[2021-11-15 16:06] LABS: Anion Gap 5 (5-15); BUN 21 mg/dL (7-18); BUN/Creat Ratio 18.1 RATIO (10-20); Calcium,Total 12.9 mg/dL (8.5-10.1); Chloride 105 mmol/L (98-107); Creatinine, Serum 1.16 mg/dL (0.70-1.30); EST Glomerular Filtration Rate 67 mL/min (>60); Est Glom Filt Rate - Afr Amer 81 mL/min (>60); Glucose 99 mg/dL (74-106); Sodium Level 138 mmol/L (136-145)
== END | disposition home or self-care (01) ==
LOC: BIMLAB 13:25
PROVIDERS: Internal Medicine Endocrinology, Diabetes & Metabolism; PCP Internal Medicine; Referring Provider Physician Assistant; Visit Provider Physician Assistant
DX: E55.9 Vitamin D deficiency, unspecified (principal); E21.0 Primary hyperparathyroidism
CPT/HCPCS: 36415; 80048; 82306

== ENCOUNTER 2021-11-24 12:27 | Outpatient (CLI) | payer MEDICARE, SELFPAY ==
[2021-11-05 09:04] VITALS: BMI 43.3
[2021-11-24 12:58] VITALS: BP 141/70; PULSE 70; RESP 16; TEMP 35.9; O2SAT 96; BMI 37.1
[2021-11-24 13:36] LABS: Anion Gap 9 (5-15); BUN 33 mg/dL (7-18); BUN/Creat Ratio 25.2 RATIO (10-20); Calcium,Total 12.9 mg/dL (8.5-10.1); Chloride 105 mmol/L (98-107); Creatinine, Serum 1.31 mg/dL (0.70-1.30); EST Glomerular Filtration Rate 58 mL/min (>60); Est Glom Filt Rate - Afr Amer 71 mL/min (>60); Estimated Creatinine Clearance 58.05 ml/min; Glucose 164 mg/dL (74-106); Potassium 3.8 mmol/L (3.5-5.1); Sodium Level 140 mmol/L (136-145)
[2021-11-24] MEDS: 0.9% NaCl IVPB Med Flush (250 mL) 15 ML IV (13:48)
[2021-11-24 16:16] VITALS: BP 119/59; PULSE 61; RESP 14; TEMP 35.9; O2SAT 96
== END 2021-11-24 23:59 | disposition home or self-care (01) ==
LOC: LAB 12:35 → MEDOUTP 12:40
PROVIDERS: PCP Internal Medicine; Referring Provider Nurse Practitioner Family; Visit Provider Nurse Practitioner Family
DX: E83.52 Hypercalcemia (principal); E21.0 Primary hyperparathyroidism
CPT/HCPCS: 96365; 96366; 36415; 80048; J7040; J7050; A4216; J2430

== ENCOUNTER → 2022-01-17 | Outpatient (CLI) | payer MEDICARE, SELFPAY ==
[2021-11-05 09:04] VITALS: BMI 43.3
--- NOTE | 2022-01-17 09:32 | NM_ITS ---
CLINICAL: 66-year-old male with history of clinical hyperparathyroidism. 99m Tc SESTAMIBI DUAL PHASE PLANAR and SPECT PARATHYROID SCINTIGRAPHY COMPARISON: Thyroid ultrasound report 10/28/2021 FINDINGS: Following the intravenous administration of 25.2 mCi of 99m Tc sestamibi, planar image acquisitions of the anterior neck at 15 minutes and 4 hours post radiopharmaceutical provision and SPECT reconstructions obtained at 4 hours reveal: 1. Immediate static blood pool acquisitions demonstrate distribution of the radiopharmaceutical in the right-left thyroid colloid of a vaguely U-shaped thyroid gland with uptake most accentuated in the inferior pole of the right thyroid parenchyma. 2. Delayed planar images depict persistent tracer concentration noted in the region of the inferior pole of the right thyroid bed corresponding to the findings revealed on 15 minute acquisitions. Emission computed tomographic reconstructions of the anterior neck reveal confirmation of the planar projection findings. NM/Parathyroid SPECT w/ CONCUR CT IMPRESSION: 1. ABNORMAL 99m Tc SESTAMIBI PLANAR-SPECT PARATHYROID IMAGING DUAL PHASE EXAMINATION. 2. There appears to be scintigraphic evidence of a hyperfunctioning parathyroid adenoma involving the inferior pole of the right thyroid bed. Electronically Signed: Miquel Pelletier, at 22:38 EDT ,
[2022-01-17 13:10] LABS: Absolute Lymphocyte Count 0.81 X10^3/uL (0.83-4.51); Absolute Neutrophil Count 5.3 X10^3/uL (2.0-7.7); Basophil# 0.06 X10^3/uL; Basophil% 0.8 % (0-1); Eosinophil# 0.28 X10^3/uL; Eosinophils% 3.7 % (0-5); Hematocrit 39.2 % (40-54); Hemoglobin 12.6 g/dL (13.0-16.5); Lymphocyte # 0.81 X10^3/ul (0.83-4.51); Lymphocyte % 10.8 % (19-41); Mean Corp Hgb Conc 32.1 g/dL (32-36); Mean Corpuscular Hgb 29.9 pg (27.0-32.0); Mean Corpuscular Volume 93.1 fL (80-94); Mean Platelet Vol. 9.7 fl (6.2-12.0); Monocyte% 13.3 % (0-10); NRBC Flagged by Analyzer 0 % (0-5); Neutrophil # 5.33 X10^3/uL (2.7-7.7); Neutrophil % 70.9 % (47-70); Platelet Count 293 K/mm3 (150-450); RBC Distribution Width CV 14.6 % (11.6-14.6); RBC Distribution Width SD 49.3 fl (35.1-43.9); Red Blood Count 4.21 M/mm3 (4.6-6.2); White Blood Count 7.5 K/mm3 (4.4-11.0)
[2022-01-17 13:41] LABS: AST(SGOT) 23 U/L (15-37); Alanine Aminotransfer ALT/SGPT 37 U/L (16-61); Albumin, Serum 3.6 g/dL (3.2-5.0); Alkaline Phosphatase 53 U/L (45-117); Anion Gap 10 (5-15); BUN 39 mg/dL (7-18); Calcium,Total 12.2 mg/dL (8.5-10.1); Chloride 106 mmol/L (98-107); Creatinine, Serum 1.26 mg/dL (0.70-1.30); EST Glomerular Filtration Rate 61 mL/min (>60); Est Glom Filt Rate - Afr Amer 74 mL/min (>60); Globulin 3.6 g/dL (2.2-4.2); Glucose 148 mg/dL (74-106); Potassium 3.9 mmol/L (3.5-5.1); Protein, Total 7.2 g/dL (6.4-8.2); Sodium Level 141 mmol/L (136-145)
[2022-01-17 13:42] LABS: BNP,B-Type NATRIURETIC PEPTIDE 130.4 pg/mL (0-100)
== END | disposition home or self-care (01) ==
PROVIDERS: Physician Assistant Medical; PCP Internal Medicine; Referring Provider Surgery; Visit Provider Surgery
DX: R06.09 Other forms of dyspnea (principal); E21.3 Hyperparathyroidism, unspecified; E78.1 Pure hyperglyceridemia; M85.80 Other specified disorders of bone density and structure, unspecified site
CPT/HCPCS: 36415; 78072; 80053; 83880; 85025; A9500

== ENCOUNTER → 2022-02-16 | Outpatient (CLI) | payer MEDICARE, SELFPAY ==
[2021-11-05 09:04] VITALS: BMI 43.3
[2022-02-16 15:15] LABS: Absolute Lymphocyte Count 0.56 X10^3/uL (0.83-4.51); Absolute Neutrophil Count 5.3 X10^3/uL (2.0-7.7); Basophil# 0.04 X10^3/uL; Basophil% 0.6 % (0-1); Eosinophil# 0.25 X10^3/uL; Eosinophils% 3.5 % (0-5); Hematocrit 30.5 % (40-54); Hemoglobin 9.1 g/dL (13.0-16.5); Lymphocyte # 0.56 X10^3/ul (0.83-4.51); Lymphocyte % 7.9 % (19-41); Mean Corp Hgb Conc 29.8 g/dL (32-36); Mean Corpuscular Hgb 26.9 pg (27.0-32.0); Mean Corpuscular Volume 90.2 fL (80-94); Mean Platelet Vol. 9.2 fl (6.2-12.0); Monocyte# 0.89 X10^3/uL; Monocyte% 12.6 % (0-10); NRBC Flagged by Analyzer 0 % (0-5); Neutrophil # 5.32 X10^3/uL (2.7-7.7); POSITIVE DIFFERENTIAL YES; Platelet Count 353 K/mm3 (150-450); RBC Distribution Width CV 15.3 % (11.6-14.6); RBC Distribution Width SD 49.6 fl (35.1-43.9); Red Blood Count 3.38 M/mm3 (4.6-6.2); White Blood Count 7.1 K/mm3 (4.4-11.0)
[2022-02-16 15:29] LABS: ALB/GLOB Ratio 1.2 RATIO (0.9-2.4); AST(SGOT) 17 U/L (15-37); Alanine Aminotransfer ALT/SGPT 33 U/L (16-61); Albumin, Serum 4.1 g/dL (3.2-5.0); Alkaline Phosphatase 51 U/L (45-117); Anion Gap 8 (5-15); BUN 22 mg/dL (7-18); BUN/Creat Ratio 16.4 RATIO (10-20); Calcium,Total 11.3 mg/dL (8.5-10.1); Chloride 104 mmol/L (98-107); Creatinine, Serum 1.34 mg/dL (0.70-1.30); EST Glomerular Filtration Rate 57 mL/min (>60); Est Glom Filt Rate - Afr Amer 69 mL/min (>60); Globulin 3.3 g/dL (2.2-4.2); Glucose 161 mg/dL (74-106); Protein, Total 7.4 g/dL (6.4-8.2); Sodium Level 140 mmol/L (136-145)
[2022-02-16 16:05] LABS: Differential Comment SCANNED; Differential Indicated SCAN CRITERIA MET
[2022-02-17 14:57] LABS: Ferritin 18 ng/mL (26-388); Iron 35 ug/dL (65-175); Iron Binding Capacity,Total 569 ug/dL (250-450)
== END | disposition home or self-care (01) ==
LOC: BIMLAB 11:57
PROVIDERS: PCP Internal Medicine; Referring Provider Internal Medicine; Visit Provider Internal Medicine
DX: I10 Essential (primary) hypertension (principal); R19.5 Other fecal abnormalities; D64.9 Anemia, unspecified
CPT/HCPCS: 36415; 80053; 82728; 83540; 83550; 85025

== ENCOUNTER → 2022-05-10 | Outpatient (CLI) | payer MEDICARE, SELFPAY ==
[2021-11-05 09:04] VITALS: BMI 43.3
[2022-05-10 14:58] LABS: Vitamin D,25 Hydroxy 12.1 ng/mL
[2022-05-10 15:01] LABS: ALB/GLOB Ratio 1.1 RATIO (0.9-2.4); AST(SGOT) 23 U/L (15-37); Alanine Aminotransfer ALT/SGPT 40 U/L (16-61); Albumin, Serum 4.1 g/dL (3.2-5.0); Alkaline Phosphatase 56 U/L (45-117); Anion Gap 9 (5-15); BUN 31 mg/dL (7-18); BUN/Creat Ratio 22.6 RATIO (10-20); Calcium,Total 10.9 mg/dL (8.5-10.1); Chloride 103 mmol/L (98-107); Creatinine, Serum 1.37 mg/dL (0.70-1.30); EST Glomerular Filtration Rate 55 mL/min (>60); Est Glom Filt Rate - Afr Amer 67 mL/min (>60); Globulin 3.6 g/dL (2.2-4.2); Glucose 173 mg/dL (74-106); Potassium 3.7 mmol/L (3.5-5.1); Protein, Total 7.7 g/dL (6.4-8.2); Sodium Level 141 mmol/L (136-145)
== END | disposition home or self-care (01) ==
PROVIDERS: PCP Internal Medicine; Referring Provider Internal Medicine Endocrinology, Diabetes & Metabolism; Visit Provider Internal Medicine Endocrinology, Diabetes & Metabolism
DX: E21.3 Hyperparathyroidism, unspecified (principal); E55.9 Vitamin D deficiency, unspecified
CPT/HCPCS: 36415; 80053; 82306

== ENCOUNTER → 2022-05-19 | Outpatient (CLI) | payer MEDICARE, SELFPAY ==
[2021-11-05 09:04] VITALS: BMI 43.3
[2022-05-19 16:42] LABS: Absolute Lymphocyte Count 0.75 X10^3/uL (0.83-4.51); Absolute Neutrophil Count 4.6 X10^3/uL (2.0-7.7); Basophil# 0.04 X10^3/uL; Basophil% 0.6 % (0-1); Eosinophil# 0.22 X10^3/uL; Eosinophils% 3.4 % (0-5); Hematocrit 41.2 % (40-54); Hemoglobin 12.6 g/dL (13.0-16.5); Lymphocyte # 0.75 X10^3/ul (0.83-4.51); Lymphocyte % 11.4 % (19-41); Mean Corp Hgb Conc 30.6 g/dL (32-36); Mean Corpuscular Hgb 27.2 pg (27.0-32.0); Mean Corpuscular Volume 88.8 fL (80-94); Mean Platelet Vol. 9.4 fl (6.2-12.0); Monocyte# 0.87 X10^3/uL; Monocyte% 13.3 % (0-10); NRBC Flagged by Analyzer 0 % (0-5); Neutrophil # 4.64 X10^3/uL (2.7-7.7); Neutrophil % 70.7 % (47-70); Platelet Count 270 K/mm3 (150-450); RBC Distribution Width CV 18.7 % (11.6-14.6); RBC Distribution Width SD 59.6 fl (35.1-43.9); Red Blood Count 4.64 M/mm3 (4.6-6.2); White Blood Count 6.6 K/mm3 (4.4-11.0)
[2022-05-19 17:31] LABS: BNP,B-Type NATRIURETIC PEPTIDE 237.8 pg/mL (0-100)
== END | disposition home or self-care (01) ==
LOC: BIMLAB 15:29
PROVIDERS: PCP Internal Medicine; Referring Provider Internal Medicine; Visit Provider Internal Medicine
DX: R06.09 Other forms of dyspnea (principal); D64.9 Anemia, unspecified
CPT/HCPCS: 36415; 83880; 85025

== ENCOUNTER 2022-05-20 11:30 | Emergency (ER) | payer MEDICARE, SELFPAY ==
[2021-11-05 09:04] VITALS: BMI 43.3
[2022-05-20 11:30] VITALS: BP 156/73; PULSE 63; RESP 20; TEMP 36.3; O2SAT 95; BMI 39.7
[2022-05-20 11:37] VITALS: O2SAT 94
--- NOTE | 2022-05-20 11:50 | EDS_ITS ---
HPI History of Present Illness Chief Complaint: Shortness of Breath Informant: patient Narrative Narrative: Presents history of worsening dyspnea with orthopnea. He states symptoms onset was prior to New Year's. He follows pulmonology for pulmonary hypertension. He states he was on antibiotics and steroids there is no improvement. He does not have asthma or COPD. He states since then symptoms slowly progressed. He is on Lasix 60 mg twice a day. He reports a cough. Recent fever. Coronary stent in the in the past followed by Dr. Min last time was in October of last year. Denies chest pains. Symptoms worse with exertion. No PE risk factors. Denies history of CKD. He saw his PCP at follow-up yesterday. Chest x-ray and blood work was ordered. He obtain his chest x-ray and came to the ED. He takes Plavix. No other blood thinners. PE Risk Factors: Negative for Cancer, OCP + Smoking + > 35, Prior DVT or PE, Recent immobilization, Recent surgery or Recent travel [facility] Medical History Abnormal chest xray Acquired left ventricular hypertrophy Acute diverticulitis Adult failure to thrive Anemia Arthritis Atherosclerosis of coronary artery of [place] heart without angina pectoris Chest discomfort Chronic hypoxemic respiratory failure Chronic pain of both knees Colon cancer screening Dark stools Debility Diabetes Diabetes Diabetes Dyspnea on exertion Epistaxis Essential (primary) hypertension Fatigue Flu vaccine need Generalized weakness Health care maintenance History of DVT (deep vein thrombosis) History of pulmonary embolism Hypercalcemia Hypercalcemia Hyperparathyroidism Hypertension Hypertriglyceridemia Hypoxia Irregular heart beat Morbid obesity with BMI of 40.0-44.9, adult Near syncope Obesity FAVIAN (obstructive sleep apnea) Osteoarthritis Primary hyperparathyroidism Pulmonary embolism Pure hypercholesterolemia Seizures Shortness of breath Type 2 diabetes mellitus Home Medications albuterol sulfate 90 mcg/actuation aerosol inhaler 2 puff inhalation Q4H PRN PRN Sob &/Or Wheezing #18 grams 04/08/19 [Rx Last Taken 10/22/19] Handicap Placard #1 ea 04/08/20 [Rx Last Taken Unknown] flash glucose scanning reader (Invite MediaStyle Tiffanie 2 Maynard) #1 ea 02/16/21 [Rx Last Taken Unknown] flash glucose sensor (FreeStyle Tiffanie 2 Sensor kit) #2 ea 02/16/21 [Rx Last Taken Unknown] furosemide 20 mg tablet 60 mg PO BID 90 days #540 tabs 08/27/21 [Rx Last Taken Unknown] clopidogrel 75 mg tablet 75 mg PO DAILY BLOOD THINNER #90 tabs 09/27/21 [Rx Last Taken Unknown] metoprolol succinate 100 mg tablet,extended release 24 hr 50 mg PO BID BLOOD PRESSURE #180 tabs 10/13/21 [Rx Last Taken 08/23/21] fenofibrate micronized 200 mg capsule 200 mg PO DAILY #30 caps 11/12/21 [Rx Last Taken Unknown] metformin 1,000 mg tablet 1,000 mg PO BIDCM DIABETES #180 tabs 11/15/21 [Rx Last Taken Unknown] amlodipine 10 mg tablet 10 mg PO DAILY BLOOD PRESSURE #90 tabs 11/25/21 [Rx Last Taken Unknown] losartan 25 mg tablet 25 mg PO DAILY #90 tabs 12/06/21 [Rx Last Taken Unknown] ranolazine 500 mg tablet,extended release,12 hr 500 mg PO BID #180 tabs 01/11/22 [Rx Last Taken Unknown] blood sugar diagnostic (Selectable Mediauch Verio test strips) #100 ea 02/16/22 [Rx Last Taken Unknown] dulaglutide 3 mg/0.5 mL subcutaneous pen injector (Trulicity) 3 mg (0.5 mL) subcut QWEEK #2 mL 02/16/22 [Rx Last Taken Unknown] potassium chloride 20 mEq tablet,extended release(part/cryst) 40 meq PO TID potassium 90 days #540 tabs 02/18/22 [Rx Last Taken Unknown] nitroglycerin 0.4 mg sublingual tablet See Rx Instructions .Route .COMPLEX #25 tabs 02/22/22 [Rx Last Taken Unknown] cinacalcet 30 mg tablet 30 mg PO BID #60 tabs 02/24/22 [Rx Last Taken Unknown] pen needle, diabetic 32 gauge x 5/32 (BD Ultra-Fine Lorie Pen Needle) #360 ea 04/08/22 [Rx Last Taken Unknown] paroxetine HCl 40 mg tablet 40 mg PO DAILY depression #90 tabs 04/12/22 [Rx Last Taken Unknown] naproxen sodium 220 mg tablet (Aleve) 220 mg PO BID PRN 04/14/22 [History Last Taken Unknown] insulin regular hum U-500 conc 500 unit/mL(3 mL) subcut pen (Humulin R U-500 (Conc) Insulin Kwikpen) 30 unit (0.06 mL) subcut .TIDCM #6 mL 05/03/22 [Rx Last Taken Unknown] cholecalciferol (vitamin D3) 1,250 mcg (50,000 unit) capsule 1,250 mcg PO .twice a week #8 caps 05/10/22 [Rx Last Taken Unknown] ferrous sulfate 325 mg (65 mg iron) tablet 325 mg PO DAILY #90 tabs 05/19/22 [Rx Last Taken Unknown] Allergy/AdvReac Type Severity Reaction Status Date / Time No Known Allergies Allergy Verified 05/19/22 13:24 Family History Mother Colon cancer Sister CAD (coronary artery disease) CABG x 5 Diabetes Myocardial infarction, Onset Age: 67 Father Crohns disease Surgical History History of appendectomy History of appendectomy 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 Smoking Status: Never smoker second hand exposure: Yes alcohol intake: former year quit: 2003 details: Sober since 2003. substance use type: former substance user Date of last use: 04/10/2004 and marijuana caffeine: Yes Type: carbonated beverages Number of servings: 2 and coffee Number of servings: 2 what type of physical activity do you participate in: none ROS ROS ED Constitutional Constitutional ED: Reports fever(s); Denies chills or sweats Eyes Eyes: Denies change in vision ENT ENT ED: Denies dysphagia or sore throat Cardiovascular Cardiovascular: Reports leg edema; Denies chest pain, palpitations or racing heartbeat Respiratory/Chest Respiratory/Chest: Reports cough, dyspnea and dyspnea on exertion Gastrointestinal Gastrointestinal: Denies abdominal pain, diarrhea, nausea or vomiting Genitourinary Genitourinary ED: Denies dysuria, hematuria or urinary frequency Musculoskeletal Musculoskeletal: Denies back pain, extremity pain or neck pain Integumentary Denies rash or wounds Neurologic Neurologic: Denies headache(s), paresthesias or weakness EXAM Physical Exam Const Vital Signs: 05/20/22 11:30 05/20/22 11:37 05/20/22 14:55 Temperature 97.3 F L Temperature Source Temporal Pulse Rate 63 58 L Respiratory Rate 20 H 16 Respiratory Effort Short of Breath Respiratory Depth Normal Respiratory Pattern Normal Blood Pressure 156/73 H 144/79 H Blood Pressure Mean 100 100 Pulse Ox 95 95 Oxygen Delivery Method Room Air Room Air Room Air Positive well nourished, well developed and obese General Appearance ED: well developed and NAD Nutritional Appearance: obese HEENT Reports moist mucous membranes normocephalic and atraumatic Eyes PERRL, EOMs intact bilaterally and conjunctivae normal General Eye ED: Yes normal appearance of both eyes Neck no lymphadenopathy and supple General: Negative for tenderness Chest Wall Chest: Negative for tenderness Resp normal respiratory effort and normal air movement Effort and Inspection: symmetric chest movement; Negative for respiratory distress Cardio regular rate, regular rhythm and no murmurs Peripheral Pulses: pulses 2+ throughout GI normal to inspection, nondistended, normoactive bowel sounds and non-tender Palpation: Negative for guarding or rebound tenderness present Back/Spine no CVA tenderness and no thoracic nor lumbar tenderness Extremity normal to inspection Extremity Narrative: 1-2+ lower extremity edema. General Extremety ED: Yes edema; Negative for tenderness General Extremity: edema Neuro oriented x3, CN's II-XII intact bilaterally and no sensory deficits noted Sensorium / Orientation: awake and alert Skin no rashes or lesions noted and no wounds MDM MDM MDM Narrative Medical decision making narrative: Interventions / MDM: Differential diagnosis: ACS, CHF, pulmonary embolism Diagnosis considered but do not suspect: Pneumothorax however normal lung sounds and normal chest x-ray My EKG interpretation: Sinus first-degree AV block, rate of 62, no ST or T wave changes. Imaging independently reviewed and interpreted by myself: I reviewed his two- view chest x-ray outpatient prior to arrival, atelectasis right middle lobe no infiltrates no pneumothorax. External documents reviewed: N/A Test considered but not ordered:N/A ED course: Patient vital stable clinically increasing leg swelling with CHF history. Exertional dyspnea with no chest pains. EKG no ischemic findings troponin was never get it. With exertional dyspnea that is worsening for over a month, D-dimer obtain for any risk for PEs which returned negative. BNP slightly elevated at 240, he has leg swelling. Chest x-ray was reviewed noted atelectasis with no pleural effusion. Creatinine 1.3 stable from last 6 months. Hemoglobin 12.5. He was ambulated minute 94% was slightly short of breath. Patient treated with IV Lasix. I discussed with his PCP, will increase his Lasix to 80 mg twice a day he will follow-up as an outpatient recheck labs with return precautions. All questions were answered. Re-evaluation: stable and improved Disposition discussed with patient/family/significant other: Patient Case discussed with consulting clinician: PCP Dr. Raymond Lab Data Attestation: I reviewed the patient's lab results. Labs: Laboratory Results - last 24 hr 05/20/22 05/20/22 05/20/22 13:35 13:35 13:35 WBC 6.7 RBC 4.57 L Hgb 12.5 L Hct 40.0 MCV 87.5 MCH 27.4 MCHC 31.3 L RDW Std Deviation 59.2 H RDW Coeff of Thao 18.6 H Plt Count 264 MPV 9.1 Immature Gran % (Auto) 0.500 Neut % (Auto) 74.9 H Lymph % (Auto) 10.1 L [place] % (Auto) 11.0 H Eos % (Auto) 2.9 Baso % (Auto) 0.6 Absolute Neuts (auto) 5.0 Absolute Lymphs (auto) 0.67 L Nucleated RBC % 0 PT 13.6 INR 1.1 APTT 25.0 D-Dimer Quant (PE/DVT) 0.49 Sodium 142 Potassium 3.9 Chloride 106 Carbon Dioxide 28.0 Anion Gap 8 BUN 37 H Creatinine 1.36 H Estim Creat Clear Calc 55.91 Est GFR (MDRD) Af Amer 68 Est GFR (MDRD) Non-Af 56 L BUN/Creatinine Ratio 27.2 H Glucose 164 H Calcium 10.7 H Troponin I High Sens 39 B-Natriuretic Peptide 05/20/22 13:35 WBC RBC Hgb Hct MCV MCH MCHC RDW Std Deviation RDW Coeff of Thao Plt Count MPV Immature Gran % (Auto) Neut % (Auto) Lymph % (Auto) [place] % (Auto) Eos % (Auto) Baso % (Auto) Absolute Neuts (auto) Absolute Lymphs (auto) Nucleated RBC % PT INR APTT D-Dimer Quant (PE/DVT) Sodium Potassium Chloride Carbon Dioxide Anion Gap BUN Creatinine Estim Creat Clear Calc Est GFR (MDRD) Af Amer Est GFR (MDRD) Non-Af BUN/Creatinine Ratio Glucose Calcium Troponin I High Sens B-Natriuretic Peptide 240.9 H EKG Initial EKG: Attestation: I personally reviewed and interpreted this EKG as follows: Comments: Sinus rate of 62, first-degree AV block, no ST or T wave changes. Discharge Plan Triage Chief Complaint: Shortness of Breath ED Provider: Chauncey Tariq Dx/Rx/DC Orders Clinical Impression: Congestive heart failure, Dyspnea on exertion, Renal insufficiency, Shortness of breath Instructions: ED Heart Failure, Congestive (CHF) Prescriptions: No Action (DME) Handicap Placard See Rx Instructions .ROUTE .MEDSUPPLY Qty: 1 0RF Rx Instructions: As directed, length of time 3 years (DME) FreeStyle Tiffanie 2 Maynard Misc See Rx Instructions .ROUTE .MEDSUPPLY Qty: 1 0RF Rx Instructions: As directed (DME) FreeStyle Tiffanie 2 Sensor Kit See Rx Instructions .ROUTE .MEDSUPPLY Qty: 2 6RF Rx Instructions: As directed cinacalcet 30 mg tablet 30 mg PO BID Qty: 60 6RF ferrous sulfate 325 mg (65 mg iron) tablet 325 mg PO DAILY Qty: 90 1RF naproxen sodium [Aleve] 220 mg tablet 220 mg PO BID PRN metoprolol succinate 100 mg tablet extended release 24 hr 50 mg PO BID Qty: 180 3RF albuterol sulfate 90 mcg/actuation HFA aerosol inhaler 2 puff INHALATION Q4H PRN PRN (Reason: Sob &/Or Wheezing) Qty: 18 6RF furosemide 20 mg tablet 60 mg PO BID 90 Days Qty: 540 3RF clopidogrel 75 mg tablet 75 mg PO DAILY Qty: 90 3RF fenofibrate micronized 200 mg capsule 200 mg PO DAILY Qty: 30 12RF metformin 1,000 mg tablet 1,000 mg PO BIDCM Qty: 180 3RF amlodipine 10 mg tablet 10 mg PO DAILY Qty: 90 3RF losartan 25 mg tablet 25 mg PO DAILY Qty: 90 3RF ranolazine 500 mg tablet extended release 12 hr 500 mg PO BID Qty: 180 3RF Trulicity 3 mg/0.5 mL pen injector 3 mg subcut QWEEK Qty: 2 5RF (DME) OneTouch Verio test strips Strip See Rx Instructions .ROUTE .MEDSUPPLY Qty: 100 12RF Rx Instructions: test 4 times daily potassium chloride 20 mEq tablet,ER particles/crystals 40 meq PO TID 90 Days Qty: 540 1RF Rx Instructions: TAKE 2 TABLETS BY MOUTH THREE TIMES DAILY nitroglycerin 0.4 mg tablet, sublingual See Rx Instructions .ROUTE .COMPLEX Qty: 25 10RF Dose Instruction: DISSOLVE 1 TABLET UNDER THE TONGUE NEEDED FOR CHEST PAIN EVERY 5 MINUTES UP TO 3 TIMES. IF NO RELIEF CALL 911. Rx Instructions: DISSOLVE 1 TABLET UNDER THE TONGUE NEEDED FOR CHEST PAIN EVERY 5 MINUTES UP TO 3 TIMES. IF NO RELIEF CALL 911. (DME) pen needle, diabetic [BD Ultra-Fine Lorie Pen Needle] 32 gauge x 5/32 needle See Rx Instructions .ROUTE .MEDSUPPLY Qty: 360 5RF Rx Instructions: 4x/day paroxetine HCl 40 mg tablet 40 mg PO DAILY Qty: 90 3RF Rx Instructions: TAKE 1 TABLET BY MOUTH ONCE DAILY Humulin R U-500 (Conc) Kwikpen 500 unit/mL (3 mL) insulin pen 30 unit SUBCUT .TIDCM Qty: 6 5RF cholecalciferol (vitamin D3) 1,250 mcg (50,000 unit) capsule 1,250 mcg PO .twice a week Qty: 8 6RF Primary Care Provider: Mery Raymond Referrals: Mery Raymond MD [Primary Care Provider] - 3-5 Days Activity Restrictions/Additional Instructions: Increase your Lasix to 80 mg twice a day. This was discussed with your PCP. Follow-up after the weekend for recheck labs and symptoms. Return if any worsening symptoms. Disposition Disposition: Home, Self Care
--- NOTE | 2022-05-20 11:50 | EKG12_ITS ---
Test Reason : SOB Blood Pressure : / mmHG Vent. Rate : 062 BPM Atrial Rate : 062 BPM P-R Int : 238 ms QRS Dur : 104 ms QT Int : 424 ms P-R-T Axes : 064 025 -30 degrees QTc Int : 430 ms Sinus rhythm with 1st degree A-V block Septal infarct , age undetermined Abnormal ECG Confirmed by BAILEE PIZANO, NII ([id number]), editorial intern NAZ NORIEGA ([id number]) on 05/23/2022 12:39:39 PM Referred By: Confirmed By:NII MOROCHO MD
[2022-05-20 13:50] LABS: Absolute Lymphocyte Count 0.67 X10^3/uL (0.83-4.51); Basophil# 0.04 X10^3/uL; Basophil% 0.6 % (0-1); Eosinophil# 0.19 X10^3/uL; Eosinophils% 2.9 % (0-5); Hemoglobin 12.5 g/dL (13.0-16.5); Lymphocyte # 0.67 X10^3/ul (0.83-4.51); Lymphocyte % 10.1 % (19-41); Mean Corp Hgb Conc 31.3 g/dL (32-36); Mean Corpuscular Hgb 27.4 pg (27.0-32.0); Mean Corpuscular Volume 87.5 fL (80-94); Mean Platelet Vol. 9.1 fl (6.2-12.0); Monocyte# 0.73 X10^3/uL; NRBC Flagged by Analyzer 0 % (0-5); Neutrophil # 4.99 X10^3/uL (2.7-7.7); Neutrophil % 74.9 % (47-70); Platelet Count 264 K/mm3 (150-450); RBC Distribution Width CV 18.6 % (11.6-14.6); RBC Distribution Width SD 59.2 fl (35.1-43.9); Red Blood Count 4.57 M/mm3 (4.6-6.2); White Blood Count 6.7 K/mm3 (4.4-11.0)
[2022-05-20 13:57] LABS: International Normalized Ratio 1.1; Prothrombin Time (Protime)PT. 13.6 SECONDS (11.7-14.9)
[2022-05-20 14:07] LABS: Anion Gap 8 (5-15); BUN 37 mg/dL (7-18); BUN/Creat Ratio 27.2 RATIO (10-20); Calcium,Total 10.7 mg/dL (8.5-10.1); Chloride 106 mmol/L (98-107); Creatinine, Serum 1.36 mg/dL (0.70-1.30); D-Dimer Quantitative (DVT/PE) 0.49 FEU/ug/m (0.27-0.49); EST Glomerular Filtration Rate 56 mL/min (>60); Est Glom Filt Rate - Afr Amer 68 mL/min (>60); Estimated Creatinine Clearance 55.91 ml/min; Glucose 164 mg/dL (74-106); Potassium 3.9 mmol/L (3.5-5.1); Sodium Level 142 mmol/L (136-145); Troponin-I HS 39 pg/mL (3.0-78.0)
[2022-05-20 14:16] LABS: BNP,B-Type NATRIURETIC PEPTIDE 240.9 pg/mL (0-100)
[2022-05-20 14:55] VITALS: BP 144/79; PULSE 58; RESP 16; O2SAT 95
[2022-05-20 15:06] VITALS: O2SAT 94
[2022-05-20] MEDS: Furosemide 100 MG/10 ML Vial 60 MG IV (15:35)
== END 2022-05-20 16:18 | disposition home or self-care (01) ==
PROVIDERS: Emergency Provider Emergency Medicine; PCP Internal Medicine; Visit Provider Emergency Medicine
DX: R06.02 Shortness of breath (principal); I11.0 Hypertensive heart disease with heart failure; I50.9 Heart failure, unspecified; I27.20 Pulmonary hypertension, unspecified; E11.9 Type 2 diabetes mellitus without complications; Z79.4 Long term (current) use of insulin; I44.0 Atrioventricular block, first degree; R50.9 Fever, unspecified; I25.10 Atherosclerotic heart disease of native coronary artery without angina pectoris; N28.9 Disorder of kidney and ureter, unspecified; J98.11 Atelectasis; Z95.5 Presence of coronary angioplasty implant and graft; Z79.02 Long term (current) use of antithrombotics/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; R60.0 Localized edema; E66.9 Obesity, unspecified; Z20.822 Contact with and (suspected) exposure to COVID-19
CPT/HCPCS: 36415; 71046; 80048; 83880; 84484; 85025; 85379; 85610; 85730; 87811; 93005; 96374; 99284; A4216; J1940

== ENCOUNTER → 2022-05-20 | Outpatient (CLI) | payer MEDICARE, SELFPAY ==
[2021-11-05 09:04] VITALS: BMI 43.3
--- NOTE | 2022-05-20 11:15 | RAD_ITS ---
STUDY: X-RAY CHEST REASON FOR EXAM: Male, 66 years old. Shortness of breath TECHNIQUE: PA and lateral views of the chest. COMPARISON: Comparison is made with prior study dated 10/10/2021. FINDINGS: Elevation of the right hemidiaphragm. Increased markings at both lung bases worse on the left side suggestive of bibasilar infiltrates. Follow-up is suggested. Normal size heart. Normal mediastinum and sue. Normal visualized pulmonary arteries. There is atherosclerotic tortuosity of the aortic arch and descending thoracic aorta. There are diffuse degenerative changes of the visualized thoracic spine. Normal visualized ribs, clavicles, and shoulders. There is no demonstrated abnormality of the visualized soft tissue structures of the upper abdomen. RAD/Chest PA and Lateral IMPRESSION: Findings suggestive of bibasilar infiltrates worse on the left side. Electronically Signed: Rodrigo Suarez MD at 12:00 EST ,
== END | disposition home or self-care (01) ==
LOC: RAD 11:14
PROVIDERS: PCP Internal Medicine; Referring Provider Internal Medicine; Visit Provider Internal Medicine
DX: R06.02 Shortness of breath (principal)
CPT/HCPCS: 71046

== ENCOUNTER → 2022-05-24 | Outpatient (CLI) | payer MEDICARE, SELFPAY ==
[2021-11-05 09:04] VITALS: BMI 43.3
[2022-05-24 15:01] LABS: Anion Gap 7 (5-15); BUN 32 mg/dL (7-18); BUN/Creat Ratio 23.5 RATIO (10-20); Calcium,Total 10.9 mg/dL (8.5-10.1); Chloride 104 mmol/L (98-107); Creatinine, Serum 1.36 mg/dL (0.70-1.30); EST Glomerular Filtration Rate 56 mL/min (>60); Est Glom Filt Rate - Afr Amer 68 mL/min (>60); Glucose 171 mg/dL (74-106); Potassium 4.1 mmol/L (3.5-5.1); Sodium Level 141 mmol/L (136-145)
== END | disposition home or self-care (01) ==
LOC: LAB 13:53
PROVIDERS: PCP Internal Medicine; Visit Provider Internal Medicine
DX: R06.09 Other forms of dyspnea (principal); N28.9 Disorder of kidney and ureter, unspecified
CPT/HCPCS: 36415; 80048

== ENCOUNTER → 2022-06-07 | Outpatient (CLI) | payer MEDICARE, SELFPAY ==
[2021-11-05 09:04] VITALS: BMI 43.3
[2022-06-07 16:44] LABS: Anion Gap 9 (5-15); BUN 22 mg/dL (7-18); BUN/Creat Ratio 16.4 RATIO (10-20); Calcium,Total 12.1 mg/dL (8.5-10.1); Chloride 104 mmol/L (98-107); Creatinine, Serum 1.34 mg/dL (0.70-1.30); EST Glomerular Filtration Rate 57 mL/min (>60); Est Glom Filt Rate - Afr Amer 69 mL/min (>60); Glucose 151 mg/dL (74-106); Potassium 4.7 mmol/L (3.5-5.1); Sodium Level 139 mmol/L (136-145)
== END | disposition home or self-care (01) ==
LOC: LAB 15:02
PROVIDERS: PCP Internal Medicine; Visit Provider Internal Medicine
DX: I50.9 Heart failure, unspecified (principal)
CPT/HCPCS: 36415; 80048

== ENCOUNTER → 2022-07-07 | Outpatient (CLI) | payer MEDICARE, SELFPAY ==
[2021-11-05 09:04] VITALS: BMI 43.3
[2022-07-07 14:22] LABS: ALB/GLOB Ratio 1.1 RATIO (0.9-2.4); AST(SGOT) 32 U/L (15-37); Alanine Aminotransfer ALT/SGPT 41 U/L (16-61); Albumin, Serum 3.9 g/dL (3.2-5.0); Alkaline Phosphatase 52 U/L (45-117); Anion Gap 7 (5-15); BUN 25 mg/dL (7-18); BUN/Creat Ratio 17.7 RATIO (10-20); Chloride 104 mmol/L (98-107); Creatinine, Serum 1.41 mg/dL (0.70-1.30); EST Glomerular Filtration Rate 54 mL/min (>60); Est Glom Filt Rate - Afr Amer 65 mL/min (>60); Globulin 3.4 g/dL (2.2-4.2); Glucose 110 mg/dL (74-106); Protein, Total 7.3 g/dL (6.4-8.2); Sodium Level 138 mmol/L (136-145)
== END | disposition home or self-care (01) ==
LOC: LAB 12:38
PROVIDERS: PCP Internal Medicine; Referring Provider Internal Medicine Endocrinology, Diabetes & Metabolism; Visit Provider Internal Medicine Endocrinology, Diabetes & Metabolism
DX: E21.0 Primary hyperparathyroidism (principal)
CPT/HCPCS: 36415; 80053

== ENCOUNTER → 2022-09-06 | Outpatient (CLI) | payer MEDICARE, SELFPAY ==
[2021-11-05 09:04] VITALS: BMI 43.3
[2022-09-06 16:00] LABS: Hemoglobin A1c 6.4 % (3.8-5.6)
[2022-09-06 16:20] LABS: ALB/GLOB Ratio 1.1 RATIO (0.9-2.4); AST(SGOT) 21 U/L (15-37); Alanine Aminotransfer ALT/SGPT 40 U/L (16-61); Alkaline Phosphatase 47 U/L (45-117); Anion Gap 10 (5-15); BUN 48 mg/dL (7-18); BUN/Creat Ratio 23.2 RATIO (10-20); Calcium,Total 10.8 mg/dL (8.5-10.1); Chloride 104 mmol/L (98-107); Creatinine, Serum 2.07 mg/dL (0.70-1.30); EST Glomerular Filtration Rate 34 mL/min (>60); Est Glom Filt Rate - Afr Amer 42 mL/min (>60); Globulin 3.5 g/dL (2.2-4.2); Glucose 149 mg/dL (74-106); Potassium 3.6 mmol/L (3.5-5.1); Protein, Total 7.5 g/dL (6.4-8.2); Sodium Level 141 mmol/L (136-145)
[2022-09-06 16:21] LABS: Vitamin D,25 Hydroxy 67.5 ng/mL
[2022-09-07 08:40] LABS: PTHIN 170.5 pg/mL (18.4-80.1)
== END | disposition home or self-care (01) ==
LOC: PAVLAB 15:24
PROVIDERS: Internal Medicine Endocrinology, Diabetes & Metabolism; PCP Internal Medicine; Referring Provider Surgery; Visit Provider Surgery
DX: E83.52 Hypercalcemia (principal); E11.65 Type 2 diabetes mellitus with hyperglycemia; E21.3 Hyperparathyroidism, unspecified; Z79.4 Long term (current) use of insulin; E78.1 Pure hyperglyceridemia; I10 Essential (primary) hypertension; E55.9 Vitamin D deficiency, unspecified; E66.9 Obesity, unspecified
CPT/HCPCS: 36415; 80053; 82306; 83036; 83970

== ENCOUNTER 2022-10-16 23:43 | Observation (INO) | payer MEDICARE, SELFPAY ==
[2021-11-05 09:04] VITALS: BMI 43.3
[2022-10-16 23:45] VITALS: BP 186/87; PULSE 94; RESP 18; TEMP 36.8; O2SAT 93; BMI 37.8
[2022-10-17] VITALS (10 sets, daily range): BP systolic 131–189; BP diastolic 71–97; PULSE 76–86; RESP 15–30; TEMP 36.8–37.2; O2SAT 87–94; BMI 37.4
--- NOTE | 2022-10-17 00:15 | RAD_ITS ---
INDICATION: pain EXAMINATION/TECHNIQUE: X-RAY - RIGHT XR Elbow Min 3 Views COMPARISON: None. FINDINGS: SOFT TISSUES: Edema suggested along the distal triceps tendon at the olecranon with small calcified density adjacent to bone. No subcutaneous emphysema. No radiopaque foreign body. BONES/JOINTS: There is no displacement of the anterior or posterior fat pads. No acute fracture or subluxation. Normal alignment. Preservation of the joint space. No sclerotic or destructive changes observed. RAD/Elbow min 3 Views IMPRESSION: Soft tissue edema and mild mineralization at the triceps insertion of the olecranon. Differential includes hydroxyapatite deposition and calcified tendinitis, sequela of prior injury, or possibly acute avulsion injury if there is history of trauma. Electronically Signed: Brown Russ MD at 1:00 EDT ,
[2022-10-17] MEDS: Ketorolac 15 MG/ML Vial IV (00:40)
[2022-10-17 00:43] LABS: Absolute Lymphocyte Count 0.33 X10^3/uL (0.83-4.51); Absolute Neutrophil Count 9.8 X10^3/uL (2.0-7.7); Basophil# 0.04 X10^3/uL; Basophil% 0.3 % (0-1); Eosinophil# 0.04 X10^3/uL; Eosinophils% 0.3 % (0-5); Hematocrit 39.3 % (40-54); Hemoglobin 13.1 g/dL (13.0-16.5); Lymphocyte # 0.33 X10^3/ul (0.83-4.51); Lymphocyte % 2.8 % (19-41); Mean Corp Hgb Conc 33.3 g/dL (32-36); Mean Corpuscular Hgb 29.5 pg (27.0-32.0); Mean Corpuscular Volume 88.5 fL (80-94); Mean Platelet Vol. 9.7 fl (6.2-12.0); Monocyte# 1.36 X10^3/uL; Monocyte% 11.7 % (0-10); NRBC Flagged by Analyzer 0 % (0-5); Neutrophil # 9.81 X10^3/uL (2.7-7.7); Neutrophil % 84.3 % (47-70); POSITIVE DIFFERENTIAL YES; Platelet Count 284 K/mm3 (150-450); RBC Distribution Width CV 13.5 % (11.6-14.6); RBC Distribution Width SD 43.9 fl (35.1-43.9); Red Blood Count 4.44 M/mm3 (4.6-6.2); White Blood Count 11.7 K/mm3 (4.4-11.0)
[2022-10-17 00:44] LABS: Differential Indicated SCAN CRITERIA MET
[2022-10-17 00:49] LABS: Anion Gap 9 (5-15); BUN 30 mg/dL (7-18); BUN/Creat Ratio 18.2 RATIO (10-20); Calcium,Total 10.4 mg/dL (8.5-10.1); Chloride 103 mmol/L (98-107); Creatinine, Serum 1.65 mg/dL (0.70-1.30); EST Glomerular Filtration Rate 45 mL/min (>60); Est Glom Filt Rate - Afr Amer 54 mL/min (>60); Estimated Creatinine Clearance 46.09 ml/min; Glucose 176 mg/dL (74-106); Potassium 3.2 mmol/L (3.5-5.1); Sodium Level 136 mmol/L (136-145)
[2022-10-17] MEDS: Gabapentin 100 MG Capsule PO (00:50)
[2022-10-17 00:54] LABS: Uric Acid 6.9 mg/dL (3.5-7.2)
[2022-10-17 00:58] LABS: Erythrocyte Sedimentation Rate 25 mm/hr (0-20)
[2022-10-17 01:03] LABS: Lactic Acid 1.4 mmol/L (0.4-1.9)
--- NOTE | 2022-10-17 02:39 | EX.ED.UPPERE ---
HPI History of Present Illness Chief Complaint: Upper Extremity Injury Informant: patient Narrative Narrative: Patient is a 66-year-old male with past medical history of hypertension hyperlipidemia coronary artery disease type 2 diabetes and renal insufficiency. He states that he had to be in a rehab facility at 1 point to help regain strength and after returning home he had a family member who was living with him at that time to help with ADLs. He states that that family recently moved out and he has been stuck trying to perform ADLs on his own. He states that he does not have the strength or have ability of doing this. He reports that he has been having to use both arms quite often to pull or push himself off the couch or bed. He denies any recent trauma but states he noticed some pain in his right shoulder last night. He states that pain resolved but he developed pain in his right elbow is worse with any type of motion. Therefore with the increased pain fact he feels generally weak and has difficulty performing his ADLs EMS was called to bring him in for evaluation [facility] Medical History Abnormal chest xray Acquired left ventricular hypertrophy Acute diverticulitis Adult failure to thrive Anemia Anxiety and depression Arthritis Atherosclerosis of coronary artery of [place] heart without angina pectoris Chest discomfort Chronic hypoxemic respiratory failure Chronic pain of both knees Colon cancer screening Dark stools Debility Diabetes Diabetes Diabetes Dyspnea on exertion Epistaxis Essential (primary) hypertension Fatigue Flu vaccine need Generalized weakness Health care maintenance History of DVT (deep vein thrombosis) History of pulmonary embolism Hypercalcemia Hypercalcemia Hyperparathyroidism Hypertension Hypertriglyceridemia Hypoxia Irregular heart beat Morbid obesity with BMI of 40.0-44.9, adult Near syncope Obesity FAVIAN (obstructive sleep apnea) Osteoarthritis Primary hyperparathyroidism Pulmonary embolism Pure hypercholesterolemia Seizures Shortness of breath Type 2 diabetes mellitus Vertigo Home Medications Handicap Placard #1 ea 04/08/20 [Rx Last Taken Unknown] flash glucose scanning reader (FreeStyle Tiffanie 2 [place]) #1 ea 02/16/21 [Rx Last Taken Unknown] flash glucose sensor (FreeStyle Tiffanie 2 Sensor kit) #2 ea 02/16/21 [Rx Last Taken Unknown] fenofibrate micronized 200 mg capsule 200 mg PO DAILY #30 caps 11/12/21 [Rx Last Taken Unknown] metformin 1,000 mg tablet 1,000 mg PO BIDCM DIABETES #180 tabs 11/15/21 [Rx Last Taken Unknown] amlodipine 10 mg tablet 10 mg PO DAILY BLOOD PRESSURE #90 tabs 11/25/21 [Rx Last Taken Unknown] losartan 25 mg tablet 25 mg PO DAILY #90 tabs 12/06/21 [Rx Last Taken Unknown] ranolazine 500 mg tablet,extended release,12 hr 500 mg PO BID #180 tabs 01/11/22 [Rx Last Taken Unknown] nitroglycerin 0.4 mg sublingual tablet See Rx Instructions .Route .COMPLEX #25 tabs 02/22/22 [Rx Last Taken Unknown] pen needle, diabetic 32 gauge x 5/32 (BD Ultra-Fine Lorie Pen Needle) #360 ea 04/08/22 [Rx Last Taken Unknown] paroxetine HCl 40 mg tablet 40 mg PO DAILY depression #90 tabs 04/12/22 [Rx Last Taken Unknown] naproxen sodium 220 mg tablet (Aleve) 220 mg PO BID PRN pain 04/14/22 [History Last Taken Unknown] potassium chloride 20 mEq tablet,extended release(part/cryst) 40 meq (2 x 20 mEq) PO TID potassium 90 days #540 tabs 08/11/22 [Rx Last Taken Unknown] ferrous sulfate 325 mg (65 mg iron) tablet 325 mg PO DAILY #90 tabs 08/18/22 [Rx Last Taken Unknown] Ozempic 1 mg/dose (4 mg/3 mL) subcutaneous pen injector (semaglutide) 1 mg (0.75 mL) subcut QWEEK #3 mL 09/06/22 [Rx Last Taken Unknown] blood sugar diagnostic (OneTouch Verio test strips) #100 ea 09/06/22 [Rx Last Taken Unknown] cinacalcet 30 mg tablet 30 mg PO BID #60 tabs 09/06/22 [Rx Last Taken Unknown] insulin regular hum U-500 conc 500 unit/mL(3 mL) subcut pen (Humulin R U-500 (Conc) Insulin Kwikpen) 30 unit (0.06 mL) subcut .TIDCM #6 mL 09/06/22 [Rx Last Taken Unknown] cholecalciferol (vitamin D3) 1,250 mcg (50,000 unit) capsule 1,250 mcg PO QWEEK #8 caps 09/07/22 [Rx Last Taken Unknown] furosemide 20 mg tablet 40 mg (2 x 20 mg) PO BID 90 days #360 tabs 09/09/22 [Rx Last Taken Unknown] metoprolol succinate 50 mg tablet,extended release 24 hr 50 mg PO BID BLOOD PRESSURE #180 tabs 09/21/22 [Rx Last Taken Unknown] clopidogrel 75 mg tablet 75 mg PO DAILY BLOOD THINNER #90 tabs 10/03/22 [Rx Last Taken Unknown] Allergy/AdvReac Type Severity Reaction Status Date / Time No Known Allergies Allergy Verified 10/16/22 23:44 Family History Mother Colon cancer Sister CAD (coronary artery disease) CABG x 5 Diabetes Myocardial infarction, Onset Age: 67 Father Crohns disease Surgical History History of appendectomy History of appendectomy 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) History of coronary artery stent placement (10/12/21) History of eye surgery History of hip replacement History of intestinal surgery History of knee surgery History of tonsillectomy and adenoidectomy Social History household members: none housing: apartment other: Hx working in [employer] and [employer]. Smoking Status: Never smoker second hand exposure: Yes alcohol intake: former year quit: 2003 details: Sober since 2003. substance use type: former substance user Date of last use: 04/10/2004 and marijuana caffeine: Yes Type: carbonated beverages Number of servings: 2 and coffee Number of servings: 2 what type of physical activity do you participate in: none ROS ROS ED Constitutional Constitutional ED: Denies chills or fever(s) ENT ENT ED: Denies sore throat Cardiovascular Cardiovascular: Denies chest pain Respiratory/Chest Respiratory/Chest: Denies cough or dyspnea Gastrointestinal Gastrointestinal: Denies abdominal pain, diarrhea, nausea or vomiting Genitourinary Genitourinary ED: Denies dysuria Musculoskeletal Musculoskeletal: Reports other Details: Positive right elbow and shoulder pain Integumentary Denies Abrasions or rash Neurologic Neurologic: Reports weakness; Denies headache(s) or paresthesias Hematologic/Lymphatic Hematologic/Lymphatic: Denies easy bleeding or easy bruising EXAM Physical Exam Const Vital Signs: 10/16/22 23:45 Temperature 98.3 F Temperature Source Temporal Pulse Rate 94 Respiratory Rate 18 Blood Pressure 186/87 H Blood Pressure Mean 120 Pulse Ox 93 Oxygen Delivery Method Room Air Positive well nourished, well developed and obese General Appearance ED: well developed Nutritional Appearance: obese HEENT Reports moist mucous membranes Eyes PERRL and EOMs intact bilaterally Neck supple Neck Narrative: No nuchal rigidity or meningeal signs Negative Spurling sign Chest Wall palpation of chest normal Resp normal respiratory effort and clear to auscultation bilaterally Resp Narrative: Breath sounds are diminished But overall clear to auscultation with no signs of respiratory distress Cardio regular rate and regular rhythm Cardio Narrative: Radial pulses are plus 2 out of 4 bilaterally are equal and symmetric GI non-tender and non-distended GI Narrative: No voluntary guarding or rigidity. No pulsatile mass or fluid wave Auscultation: normoactive bowel sounds Palpation: soft Extremity Extremity Narrative: Right upper extremity is neurovascularly intact; AIN/PIN are intact and normal. There is mild soft tissue swelling noted near the olecranon. No overlying erythema or warmth. There is pain on palpation along the medial epicondyles well. Pain worsens with pronation and flexion extension. No lymphangitic streaking noted. No crepitance palpated Neuro oriented x3 and CN's II-XII intact bilaterally Sensorium / Orientation: alert Psych mental status grossly normal Skin no rashes or lesions noted MDM MDM MDM Narrative Medical decision making narrative: Patient presented to the ER mildly hypertensive but has a past medical history of this and otherwise is afebrile. He denies any direct trauma but had severe pain with any type of motion of the right elbow. He does state since he has had generalized weakness and difficulty getting around that he uses his arms to push and pull himself off the couch in bed. Differential diagnosis includes gout versus arthralgia versus tendinitis versus infectious process such as cellulitis abscess or septic joint. As the patient does have a history of diabetes I did elect to perform basic laboratory studies. Labs showed no clinically significant elevation to his white blood cell count and normal lactic acid value as well as uric acid. His CRP is elevated at 56 which is nonspecific. He denied any recent instrumentation to suggest a infective process and there is no overlying erythema to suggest this either. The patient states that he has had difficulty getting around and performing his ADLs and is requesting potential rehab versus fci placement. Secondary to this inability to care for himself medicine was contacted and they do agree to accept the patient at this time. Patient does agree to hospital stay and placement if necessary. However at this time as his exam does not indicate an infectious process and I believe there is need for antibiotics and he can be admitted secondary to his debility Lab Data Attestation: I reviewed the patient's lab results. Labs: Laboratory Results - last 24 hr 10/17/22 00:28 WBC 11.7 H RBC 4.44 L Hgb 13.1 Hct 39.3 L MCV 88.5 MCH 29.5 MCHC 33.3 RDW Std Deviation 43.9 RDW Coeff of Thao 13.5 Plt Count 284 MPV 9.7 Immature Gran % (Auto) 0.600 Neut % (Auto) 84.3 H Lymph % (Auto) 2.8 L [place] % (Auto) 11.7 H Eos % (Auto) 0.3 Baso % (Auto) 0.3 Absolute Neuts (auto) 9.8 H Absolute Lymphs (auto) 0.33 L Nucleated RBC % 0 ESR 25 H Sodium 136 Potassium 3.2 L Chloride 103 Carbon Dioxide 24.0 Anion Gap 9 BUN 30 H Creatinine 1.65 H Estim Creat Clear Calc 46.09 Est GFR (MDRD) Af Amer 54 L Est GFR (MDRD) Non-Af 45 L BUN/Creatinine Ratio 18.2 Glucose 176 H Lactic Acid 1.4 Uric Acid 6.9 Calcium 10.4 H C-React Prot Ext Range 55.90 H Radiography Diagnostic Testing: Clinical Impression(s) from Imaging Studies Elbow X-Ray 10/17/22 00:15 IMPRESSION: Soft tissue edema and mild mineralization at the triceps insertion of the olecranon. Differential includes hydroxyapatite deposition and calcified tendinitis, sequela of prior injury, or possibly acute avulsion injury if there is history of trauma. Electronically Signed: Brown Russ MD at 1:00 EDT , Right elbow x-rays interpreted by the emergency medicine physician reveals mild soft tissue swelling without joint effusion fracture dislocation or foreign body Management Discussion w/another healthcare provider: Hospitalist Discharge Plan Dx/Rx/DC Orders Clinical Impression: Type 2 diabetes mellitus, Renal insufficiency, Debility, Benign essential HTN, Right elbow pain Disposition Disposition: Acute Care Hospital [facility] Discharge Date/Time: 10/17/22 03:49
--- NOTE | 2022-10-17 03:32 | HP.PCM.HOS_ITS ---
HPI - General General Date of Admission: 10/17/22 Date of Service: 10/17/22 Chief Complaint: Right shoulder and right elbow pain HPI Narrative ELIANE KAY, is a 66 M with a significant history of Vertigo; type 2 diabetes mellitus; DVT; and PE who presents to the emergency department with excruciating pain in his right shoulder and in his right elbow. The pain is aggravated by movement and is improved by rest. Patient over symptoms is general weakness. Of note when patient was walking to the paramedics vehicle he fell. He attribut es his falls to weakness. In the past patient spent some time at the rehabilitation. At this time patient is unable to take care of himself. [facility], [facility] Medical History Abnormal chest xray Acquired left ventricular hypertrophy Acute diverticulitis Adult failure to thrive Anemia Anxiety and depression Arthritis Atherosclerosis of coronary artery of [place] heart without angina pectoris Chest discomfort Chronic hypoxemic respiratory failure Chronic pain of both knees Colon cancer screening Dark stools Debility Diabetes Diabetes Diabetes Dyspnea on exertion Epistaxis Essential (primary) hypertension Fatigue Flu vaccine need Generalized weakness Health care maintenance History of DVT (deep vein thrombosis) History of pulmonary embolism Hypercalcemia Hypercalcemia Hyperparathyroidism Hypertension Hypertriglyceridemia Hypoxia Irregular heart beat Morbid obesity with BMI of 40.0-44.9, adult Near syncope Obesity FAVIAN (obstructive sleep apnea) Osteoarthritis Primary hyperparathyroidism Pulmonary embolism Pure hypercholesterolemia Seizures Shortness of breath Type 2 diabetes mellitus Vertigo Home Medications Handicap Placard #1 ea 04/08/20 [Rx Last Taken Unknown] flash glucose scanning reader (FreeStyle Tiffanie 2 [place]) #1 ea 02/16/21 [Rx Last Taken Unknown] flash glucose sensor (FreeStyle Tiffanie 2 Sensor kit) #2 ea 02/16/21 [Rx Last Ta kelin Unknown] fenofibrate micronized 200 mg capsule 200 mg PO DAILY #30 caps 11/12/21 [Rx Last Taken 10/16/22] metformin 1,000 mg tablet 1,000 mg PO BIDCM DIABETES #180 tabs 11/15/21 [Rx Last Taken 10/16/22] amlodipine 10 mg tablet 10 mg PO DAILY BLOOD PRESSURE #90 tabs 11/25/21 [Rx Last Taken 10/16/22] losartan 25 mg tablet 25 mg PO DAILY #90 tabs 08/29/22 [Rx Last Taken 10/16/22] ranolazine 500 mg tablet,extended release,12 hr 500 mg PO BID #180 tabs 01/11/22 [Rx Last Taken 10/16/22] nitroglycerin 0.4 mg sublingual tablet See Rx Instructions .Route .COMPLEX #25 tabs 02/22/22 [Rx Last Taken Unknown] pen needle, diabetic 32 gauge x 5/32 (BD Ultra-Fine Lorie Pen Needle) #360 ea 04/08/22 [Rx Last Taken Unknown] paroxetine HCl 40 mg tablet 40 mg PO DAILY depression #90 tabs 04/12/22 [Rx Last Taken 10/16/22] naproxen sodium 220 mg tablet (Aleve) 220 mg PO BID PRN pain 04/14/22 [History Last Taken Unknown] potassium chloride 20 mEq tablet,extended release(part/cryst) 40 meq (2 x 20 mEq) PO TID potassium 90 days #540 tabs 08/11/22 [Rx Last Taken 10/16/22] ferrous sulfate 325 mg (65 mg iron) tablet 325 mg PO DAILY #90 tabs 08/18/22 [Rx Last Taken 10/16/22] Ozempic 1 mg/dose (4 mg/3 mL) subcutaneous pen injector (semaglutide) 1 mg (0.75 mL) subcut QWEEK #3 mL 09/06/22 [Rx Last Taken 10/10/22] blood sugar diagnostic (OneTouch Verio test strips) #100 ea 09/06/22 [Rx Last Taken Unknown] cinacalcet 30 mg tablet 30 mg PO BID #60 tabs 09/06/22 [Rx Last Taken 10/16/22] insulin regular hum U-500 conc 500 unit/mL(3 mL) subcut pen (Humulin R U-500 (Conc) Insulin Kwikpen) 30 unit (0.06 mL) subcut .TIDCM #6 mL 09/06/22 [Rx Last Taken 10/16/22] cholecalciferol (vitamin D3) 1,250 mcg (50,000 unit) capsule 1,250 mcg PO QWEEK #8 caps 09/07/22 [Rx Last Taken 10/10/22] furosemide 20 mg tablet 40 mg (2 x 20 mg) PO BID 90 days #360 tabs 09/09/22 [Rx Last Taken 10/16/22] metoprolol succinate 50 mg tablet,extended release 24 hr 50 mg PO BID BLOOD PRESSURE #180 tabs 09/21/22 [Rx Last Taken 10/16/22] clopidogrel 75 mg tablet 75 mg PO DAILY BLOOD THINNER #90 tabs 10/03/22 [Rx Last Taken 10/16/22] Allergy/AdvReac Type Severity Reaction Status Date / Time No Known Allergies Allergy Verified 10/16/22 23:44 Family History Mother Colon cancer Sister CAD (coronary artery disease) CABG x 5 Diabetes Myocardial infarction, Onset Age: 67 Father Crohns disease Surgical History History of appendectomy History of appendectomy 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) History of coronary artery stent placement (10/12/21) History of eye surgery History of hip replacement History of intestinal surgery History of knee surgery History of tonsillectomy and adenoidectomy Social History household members: none housing: apartment other: Hx working in [employer] and [employer]. Smoking Status: Never smoker second hand exposure: Yes alcohol intake: former year quit: 2003 details: Sober since 2003. substance use type: former substance user Date of last use: 04/10/2004 and marijuana caffeine: Yes Type: carbonated beverages Number of servings: 2 and coffee Number of servings: 2 what type of physical activity do you participate in: none ROS ROS Narrative Pertinent positives and pertinent negatives as noted in HPI. All other systems were reviewed and are negative Vital Signs Vital Signs Vital Signs: 10/16/22 23:45 10/17/22 02:47 Temperature 98.3 F 98.2 F Temperature Source Temporal Oral Pulse Rate 94 79 Respiratory Rate 18 15 Blood Pressure 186/87 H 171/97 H Blood Pressure Mean 120 121 Pulse Ox 93 92 Oxygen Delivery Method Room Air Room Air Weight Weight: 119.7 kg Body Mass Index (BMI) 37.8 Physical Exam Narrative Physical exam: General: Well-nourished, well-developed. Head: Normocephalic, atraumatic, no tenderness Eyes: Vision is grossly intact. EOMI ENT, no trauma, moist mucous membranes, no rhinorrhea Neck: Nontender, No thyromegaly. CVS: Regular rate and rhythm. S1-S2 present. No murmur, gallop or rub. Respiratory : clear to auscultation bilaterally, chest wall nontender Abdomen: Soft, nontender, nondistended, normal bowel sounds, no masses : Deferred Back: Nontender, no CVA tenderness, no midline spinal tenderness, deformities, step-offs Extremities: Nontender full range of motion, no trauma Skin: Normal color, no trauma, abrasions Neuro: Alert, oriented, cranial nerves II through XII grossly intact. Psychiatry: Normal mood. Normal affect. Not depressed. Not anxious. Results Lab / Micro Data 10/17/22 00:28 10/17/22 00:28 Labs: Laboratory Results - last 24 hr 10/17/22 00:28: WBC 11.7 H, RBC 4.44 L, Hgb 13.1, Hct 39.3 L, MCV 88.5, MCH 29.5, MCHC 33.3, RDW Std Deviation 43.9, RDW Coeff of Thao 13.5, Plt Count 284, MPV 9.7, Immature Gran % (Auto) 0.600, Neut % (Auto) 84.3 H, Lymph % (Auto) 2.8 L, [place] % (Auto) 11.7 H, Eos % (Auto) 0.3, Baso % (Auto) 0.3, Absolute Neuts (auto) 9.8 H, Absolute Lymphs (auto) 0.33 L, Nucleated RBC % 0, ESR 25 H, Sodium 136, Potassium 3.2 L, Chloride 103, Carbon Dioxide 24.0, Anion Gap 9, BUN 30 H, Creatinine 1.65 H, Estim Creat Clear Calc 46.09, Est GFR (MDRD) Af Amer 54 L, Est GFR (MDRD) Non-Af 45 L, BUN/Creatinine Ratio 18.2, Glucose 176 H, Lactic Acid 1.4, Uric Acid 6.9, Calcium 10.4 H, C-React Prot Ext Range 55.90 H Radiology Impression Elbow X-Ray 10/17/22 00:15 IMPRESSION: Soft tissue edema and mild mineralization at the triceps insertion of the olecranon. Differential includes hydroxyapatite deposition and calcified tendinitis, sequela of prior injury, or possibly acute avulsion injury if there is history of trauma. Electronically Signed: Brown Russ MD at 1:00 EDT , Assessment & Plan Assessment/Plan (1) Olecranon bursitis: QUALIFIERS: Laterality: right Qualified Code(s): M70.21 - Olecranon bursitis, right elbow (2) Debility: PLAN: Plan Right olecranon bursitis Elbow x-ray per radiology interpretation: Soft tissue edema and mild mineralization at the triceps insertion of the olecranon. Elbow x-ray was visualized and independently interpreted and hospitalist agrees with emergency petition. We will start patient on steroids. As needed Tylenol and ultram ordered ESR is only mildly elevated at 25. CRP of 55.9. Normal white count. Trend CBC. Debility and generalized weakness Case management consult PT and OT evaluation. Diabetes mellitus Blood glucose is not not treating goal. Hold basal insulin continued. Hold metformin. Accu-Chek with correction scale insulin ordered. Hypertension Blood pressure is not within goal Home blood pressure medication continued. As needed hydralazine ordered. Trend blood pressure and adjust blood pressure medications. DVT prophylaxis Subcutaneous Lovenox ordered. Time spent in the patient's overall evaluation,decision-making process, review of diagnostic data, adjustment of management, discussion with other providers, nursing nursing and ancillary staff involved in patient's care documentation, 56 minutes.
[2022-10-17] MEDS: Labetalol (Prefilled) 20 MG/4 ML IV (03:41)
[2022-10-17] MEDS: cloNIDine HCl 0.1 MG Tablet PO (03:41)
[2022-10-17] MEDS: Potassium Chloride Oral Tablet 20 MEQ 40 MEQ PO ×3 (04:58→17:24)
[2022-10-17 05:00] LABS: Absolute Lymphocyte Count 0.37 X10^3/uL (0.83-4.51); Absolute Neutrophil Count 8.4 X10^3/uL (2.0-7.7); Basophil# 0.03 X10^3/uL; Basophil% 0.3 % (0-1); Eosinophil# 0.03 X10^3/uL; Eosinophils% 0.3 % (0-5); Hematocrit 37.6 % (40-54); Hemoglobin 12.5 g/dL (13.0-16.5); Lymphocyte # 0.37 X10^3/ul (0.83-4.51); Lymphocyte % 3.6 % (19-41); Mean Corp Hgb Conc 33.2 g/dL (32-36); Mean Corpuscular Hgb 29.6 pg (27.0-32.0); Mean Corpuscular Volume 89.1 fL (80-94); Mean Platelet Vol. 9.3 fl (6.2-12.0); Monocyte# 1.35 X10^3/uL; Monocyte% 13.2 % (0-10); NRBC Flagged by Analyzer 0 % (0-5); Neutrophil # 8.41 X10^3/uL (2.7-7.7); Neutrophil % 82.1 % (47-70); POSITIVE DIFFERENTIAL YES; Platelet Count 257 K/mm3 (150-450); RBC Distribution Width CV 13.6 % (11.6-14.6); RBC Distribution Width SD 44.6 fl (35.1-43.9); Red Blood Count 4.22 M/mm3 (4.6-6.2); White Blood Count 10.2 K/mm3 (4.4-11.0)
[2022-10-17 05:10] LABS: Differential Indicated SCAN CRITERIA MET
[2022-10-17 05:35] LABS: Anion Gap 10 (5-15); BUN 28 mg/dL (7-18); BUN/Creat Ratio 18.5 RATIO (10-20); Calcium,Total 10.1 mg/dL (8.5-10.1); Chloride 105 mmol/L (98-107); Creatinine, Serum 1.51 mg/dL (0.70-1.30); EST Glomerular Filtration Rate 49 mL/min (>60); Est Glom Filt Rate - Afr Amer 60 mL/min (>60); Estimated Creatinine Clearance 50.36 ml/min; Glucose 178 mg/dL (74-106); Potassium 2.7 mmol/L (3.5-5.1); Sodium Level 140 mmol/L (136-145)
--- NOTE | 2022-10-17 07:45 | PCM.PN.HOSP ---
Reason for Visit Reason for Visit: Diagnoses Olecranon bursitis, right elbow (10/17/22) Other malaise (10/17/22) Objective Data Objective Data Vital Signs: Vital Signs Temp Pulse Resp BP Pulse Ox O2 Del Method 98.5 F 83 18 131/71 H 94 Room Air 10/17/22 04:12 10/17/22 04:12 10/17/22 04:12 10/17/22 04:12 10/17/22 04:12 10/17/22 04:12 Oxygen Delivery Method Room Air Weight: 261 lb 0.437 oz Body Mass Index (BMI) 37.4 Intake & Output: Intake and Output for Last 24 Hours 10/15/22 10/16/22 10/17/22 23:59 23:59 23:59 Intake Total 200 / 200 Balance 200 / 200 Lab / Micro Data 10/17/22 04:50 10/17/22 04:50 Labs: Laboratory Results - last 24 hr 10/17/22 00:28: WBC 11.7 H, RBC 4.44 L, Hgb 13.1, Hct 39.3 L, MCV 88.5, MCH 29.5, MCHC 33.3, RDW Std Deviation 43.9, RDW Coeff of Thao 13.5, Plt Count 284, MPV 9.7, Immature Gran % (Auto) 0.600, Neut % (Auto) 84.3 H, Lymph % (Auto) 2.8 L, [place] % (Auto) 11.7 H, Eos % (Auto) 0.3, Baso % (Auto) 0.3, Absolute Neuts (auto) 9.8 H, Absolute Lymphs (auto) 0.33 L, Nucleated RBC % 0, ESR 25 H, Sodium 136, Potassium 3.2 L, Chloride 103, Carbon Dioxide 24.0, Anion Gap 9, BUN 30 H, Creatinine 1.65 H, Estim Creat Clear Calc 46.09, Est GFR (MDRD) Af Amer 54 L, Est GFR (MDRD) Non-Af 45 L, BUN/Creatinine Ratio 18.2, Glucose 176 H, Lactic Acid 1.4, Uric Acid 6.9, Calcium 10.4 H, C-React Prot Ext Range 55.90 H 10/17/22 04:50: WBC 10.2, RBC 4.22 L, Hgb 12.5 L, Hct 37.6 L, MCV 89.1, MCH 29.6, MCHC 33.2, RDW Std Deviation 44.6 H, RDW Coeff of Thao 13.6, Plt Count 257, MPV 9.3, Immature Gran % (Auto) 0.500, Neut % (Auto) 82.1 H, Lymph % (Auto) 3.6 L, [place] % (Auto) 13.2 H, Eos % (Auto) 0.3, Baso % (Auto) 0.3, Absolute Neuts (auto) 8.4 H, Absolute Lymphs (auto) 0.37 L, Nucleated RBC % 0, Sodium 140, Potassium 2.7 L*, Chloride 105, Carbon Dioxide 25.0, Anion Gap 10, BUN 28 H, Creatinine 1.51 H, Estim Creat Clear Calc 50.36, Est GFR (MDRD) Af Amer 60, Est GFR (MDRD) Non-Af 49 L, BUN/Creatinine Ratio 18.5, Glucose 178 H, Calcium 10.1 Radiography Diagnostic Testing: Radiology Impression Elbow X-Ray 10/17/22 00:15 IMPRESSION: Soft tissue edema and mild mineralization at the triceps insertion of the olecranon. Differential includes hydroxyapatite deposition and calcified tendinitis, sequela of prior injury, or possibly acute avulsion injury if there is history of trauma. Electronically Signed: Brown Russ MD at 1:00 EDT Reading Location ID and State: [facility] / [place] Tel , Service support , Assessment & Plan Assessment/Plan (1) Olecranon bursitis: QUALIFIERS: Laterality: right Qualified Code(s): M70.21 - Olecranon bursitis, right elbow (2) Debility: PLAN: Plan 66-year-old gentleman was admitted with right upper extremity pain shoulder and elbow radiating to wrist. Denies acute injury. He has difficulty in performing ADL. Currently pain is worse at right elbow exacerbated with any type of movement. Right olecranon bursitis Elbow x-ray individually reviewed and shows soft tissue edema and possible hydroxyapatite crystallization/calcified tendinitis. Not enough fluid for aspiration. Patient is started on IV steroid. Low-dose NSAID as anti-inflammatory agent. Discontinue naproxen. Pantoprazole 40 mg daily. As needed Tylenol and ultram ordered ESR is only mildly elevated at 25. CRP of 55.9. Normal white count. Debility and generalized weakness Case management consult PT and OT evaluation. Diabetes mellitus type II Blood glucose is not at goal. Hold metformin. Accu-Chek with correction scale insulin ordered. Glucose 178 in BMP. Lantus insulin ordered. Hypertension Blood pressure is not within goal Home blood pressure medication continued. As needed hydralazine ordered. Trend blood pressure and adjust blood pressure medications. DVT prophylaxis Subcutaneous Lovenox ordered. Laboratory Results 10/17/22 00:28: WBC 11.7 H, RBC 4.44 L, Hgb 13.1, Hct 39.3 L, MCV 88.5, MCH 29.5, MCHC 33.3, RDW Std Deviation 43.9, RDW Coeff of Thao 13.5, Plt Count 284, MPV 9.7, Immature Gran % (Auto) 0.600, Neut % (Auto) 84.3 H, Lymph % (Auto) 2.8 L, [place] % (Auto) 11.7 H, Eos % (Auto) 0.3, Baso % (Auto) 0.3, Absolute Neuts (auto) 9.8 H, Absolute Lymphs (auto) 0.33 L, Nucleated RBC % 0, ESR 25 H, Sodium 136, Potassium 3.2 L, Chloride 103, Carbon Dioxide 24.0, Anion Gap 9, BUN 30 H, Creatinine 1.65 H, Estim Creat Clear Calc 46.09, Est GFR (MDRD) Af Amer 54 L, Est GFR (MDRD) Non-Af 45 L, BUN/Creatinine Ratio 18.2, Glucose 176 H, Lactic Acid 1.4, Uric Acid 6.9, Calcium 10.4 H, C-React Prot Ext Range 55.90 H 10/17/22 04:50: WBC 10.2, RBC 4.22 L, Hgb 12.5 L, Hct 37.6 L, MCV 89.1, MCH 29.6, MCHC 33.2, RDW Std Deviation 44.6 H, RDW Coeff of Thao 13.6, Plt Count 257, MPV 9.3, Immature Gran % (Auto) 0.500, Neut % (Auto) 82.1 H, Lymph % (Auto) 3.6 L, [place] % (Auto) 13.2 H, Eos % (Auto) 0.3, Baso % (Auto) 0.3, Absolute Neuts (auto) 8.4 H, Absolute Lymphs (auto) 0.37 L, Nucleated RBC % 0, Sodium 140, Potassium 2.7 L*, Chloride 105, Carbon Dioxide 25.0, Anion Gap 10, BUN 28 H, Creatinine 1.51 H, Estim Creat Clear Calc 50.36, Est GFR (MDRD) Af Amer 60, Est GFR (MDRD) Non-Af 49 L, BUN/Creatinine Ratio 18.5, Glucose 178 H, Calcium 10.1 10/17/22 07:55: POC Glucose 167 H Clinical Impression(s) from Imaging Studies Elbow X-Ray 10/17/22 00:15 IMPRESSION: Soft tissue edema and mild mineralization at the triceps insertion of the olecranon. Differential includes hydroxyapatite deposition and calcified tendinitis, sequela of prior injury, or possibly acute avulsion injury if there is history of trauma. Charges/Coding Visit Charges Inpatient E&M: 15357 Subs Hosp L2
[2022-10-17] MEDS: Cinacalcet HCl 30 MG Tablet PO ×2 (07:58→17:24)
[2022-10-17] MEDS: Ferrous Sulfate 325 MG Tablet PO (07:58)
[2022-10-17] MEDS: Insulin U-500 UNITS/ML PEN 30 UNITS SC ×3 (08:07→17:28)
[2022-10-17 08:20] LABS: Bedside Glucose 167 mg/dL (74-106)
--- NOTE | 2022-10-17 09:19 | CASEMGMT ---
Discharge Planning SNF list created and given to SW. Jennifer Stringer, Discharge Planning Asst.
[2022-10-17] MEDS: Furosemide 40 MG Tablet PO (10:36)
[2022-10-17] MEDS: Losartan Potassium 25 MG Tablet PO (10:36)
[2022-10-17] MEDS: Enoxaparin 40 MG/0.4 ML Syringe SC (10:36)
[2022-10-17] MEDS: Paroxetine 20 MG Tablet 40 MG PO (10:37)
[2022-10-17] MEDS: amLODIPine 10 MG Tablet PO (10:37)
[2022-10-17] MEDS: Fenofibrate 145 MG Tablet PO (10:38)
[2022-10-17] MEDS: Clopidogrel Bisulfate 75 MG Tablet PO (10:38)
[2022-10-17] MEDS: Ranolazine 500 MG Tablet PO ×2 (10:38→22:53)
[2022-10-17] MEDS: Metoprolol(XL)Succ 50 MG Tablet PO ×2 (10:38→22:54)
[2022-10-17] MEDS: Ergocalciferol 1.25 MG (50, 000 UNIT) Capsule PO (10:39)
[2022-10-17] MEDS: traMADol 50 MG Tablet PO ×2 (10:51→22:53)
--- NOTE | 2022-10-17 11:39 | CASEMGMT ---
Discharge Planning Referral sent to [facility] via [facility]. Jennifer Stringer, Discharge Planning Asst.
--- NOTE | 2022-10-17 12:05 | CASEMGMT ---
Social Work SW met w/pt, spoke w/him about prior level of function and anticipated discharge plan. Pt states lives home alone, and is having a difficult time at home. Pt states has not been able to shop, drive, do his laundry. He is unsteady on his feet. Pt states he is wobbly and can't walk straight. Pt does have a walker and cane at home. Pt does not have family in the area to help, he states his nephew was helping but just all of a sudden stopped helping. Pt's brother lives out of state otherwise pt states he would help. Pt also mentioned that his memory has not been good recently. Pt is agreeable to go to SNF at this time. SW explained reviewed his therapy notes, he may or may not be approved but we can try. SW provided to pt a list of intermediate facilities via [employer] in pt's insurance network, preferred geographic area, and complete with quality and resource use data. Pt would like a referral sent to [facility]. Referral to be sent to [facility] shortly. JARRETT Dumont
--- NOTE | 2022-10-17 14:57 | CASEMGMT ---
Discharge Planning Patient has been accepted by [facility]. Asked that precert be submitted. Jennifer Stringer, Discharge Planning Asst.
[2022-10-17] MEDS: Lactated Ringers 1,000 ML 75 ML IV (15:01)
[2022-10-17] MEDS: Meloxicam 7.5 MG Tablet PO (15:01)
[2022-10-17] MEDS: Insulin Glargine-YFGN 100 UNIT/ML Pen 10 UNIT SC (15:02)
[2022-10-17] MEDS: Pantoprazole Sodium 40 MG Tablet PO (15:02)
--- NOTE | 2022-10-17 16:13 | CASEMGMT ---
Social Work [facility] accepted pt and got precert. SW let physician know, he will discharge pt tomorrow. SW let pt know also, he is agreeable to [facility] tomorrow. JARRETT Dumont
[2022-10-17 16:44] LABS: Bedside Glucose 189 mg/dL (74-106)
[2022-10-17 17:09] LABS: Bedside Glucose 174 mg/dL (74-106)
[2022-10-17] MEDS: Insulin Lispro 100 UNIT/ML INSULN.PEN SC (17:27)
--- NOTE | 2022-10-17 18:45 | CASEMGMT ---
RN FRED NOTE: RN CM to room. Pt sitting up in chair in room. Intro role of CM to patient and [facility] form explained re: Observation status for treatment of rt elbow and right shoulder pain.? Explained hospitalization will be paid per?his insurance policy for Outpatient billing?and condition will continue to be evaluated for Inpt necessity. Also let pt know that [facility] sends paper in the billing packet with their phone number if questions arise. Discussed Pharmacy section of [facility] form and self administered medication guideline.? Pt verbalizes understanding and does not have further questions. ?Form signed, copy made and placed in chart, and original given to pt. Kris SEVERINO RN CM
[2022-10-17] MEDS: MELATONIN 3 MG TABLET PO (22:55)
[2022-10-17] MEDS: 0.9% Saline Lock 10 ML Syringe IV (22:56)
--- NOTE | 2022-10-17 23:00 | EKG12_ITS ---
Test Reason : CP/SOB Blood Pressure : / mmHG Vent. Rate : 093 BPM Atrial Rate : 153 BPM P-R Int : 000 ms QRS Dur : 108 ms QT Int : 372 ms P-R-T Axes : 000 017 177 degrees QTc Int : 462 ms Atrial fibrillation Septal infarct (cited on or before 14-OCT-2021) Abnormal ECG Confirmed by BAILEE PIZANO, NII ([id number]), editor house organ NAZ NORIEGA ([id number]) on 10/19/2022 10:48:28 AM Referred By: Lyle Coleman Confirmed By:NII MOROCHO MD
[2022-10-17 23:15] LABS: Bedside Glucose 100 mg/dL (74-106)
[2022-10-18] VITALS (12 sets, daily range): BP systolic 128–171; BP diastolic 78–106; PULSE 64–89; RESP 12–38; TEMP 36.1–37.5; O2SAT 94–97
[2022-10-18] MEDS: Furosemide 20 MG/2 ML VIAL IV (00:04)
[2022-10-18] MEDS: 0.9% Saline Lock 10 ML Syringe IV (00:05)
--- NOTE | 2022-10-18 06:55 | PCM.TXEXTCAR ---
Diet Diet Order/Speech Therapy: 10/17/22 03:52 Diet: Cardiac - Heart Healthy Food consistency:: Regular Liquid Consistency:: Regular/Thin Routine Orders/Code Status Suppository Type: Dulcolax 10mg Suppository Frequency: Daily PRN Routine Lab Work: BMP (in 1 week) Code Status: Full Code Therapies Weight Bearing: Weight bearing as tolerated Extremity Affected:: Bilateral Upper Physical Therapy: Eval and Treat Occupational Therapy: Eval and Treat Speech Therapy: Eval and Treat Problem/Diagnosis (1) Olecranon bursitis: Status: Acute Code(s): M70.20 - Olecranon bursitis, unspecified elbow (2) Debility: Status: Acute Code(s): R53.81 - Other malaise Plan 66-year-old gentleman was admitted with right upper extremity pain shoulder and elbow radiating to wrist. Denies acute injury. He has difficulty in performing ADL. Currently pain is worse at right elbow exacerbated with any type of movement. Right olecranon bursitis Elbow x-ray individually reviewed and shows soft tissue edema and possible hydroxyapatite crystallization/calcified tendinitis. Not enough fluid for aspiration. Patient is started on IV steroid. Low-dose NSAID as anti-inflammatory agent. Discontinue naproxen. Pantoprazole 40 mg daily. As needed Tylenol and ultram ordered ESR is only mildly elevated at 25. CRP of 55.9. Normal white count. Debility and generalized weakness Case management consult PT and OT evaluation. Diabetes mellitus type II Blood glucose is not at goal. Hold metformin. Accu-Chek with correction scale insulin ordered. Glucose 178 in BMP. Lantus insulin ordered. Hypertension Blood pressure is not within goal Home blood pressure medication continued. As needed hydralazine ordered. Trend blood pressure and adjust blood pressure medications. DVT prophylaxis Subcutaneous Lovenox ordered. Laboratory Results 10/17/22 00:28: WBC 11.7 H, RBC 4.44 L, Hgb 13.1, Hct 39.3 L, MCV 88.5, MCH 29.5, MCHC 33.3, RDW Std Deviation 43.9, RDW Coeff of Thao 13.5, Plt Count 284, MPV 9.7, Immature Gran % (Auto) 0.600, Neut % (Auto) 84.3 H, Lymph % (Auto) 2.8 L, [place] % (Auto) 11.7 H, Eos % (Auto) 0.3, Baso % (Auto) 0.3, Absolute Neuts (auto) 9.8 H, Absolute Lymphs (auto) 0.33 L, Nucleated RBC % 0, ESR 25 H, Sodium 136, Potassium 3.2 L, Chloride 103, Carbon Dioxide 24.0, Anion Gap 9, BUN 30 H, Creatinine 1.65 H, Estim Creat Clear Calc 46.09, Est GFR (MDRD) Af Amer 54 L, Est GFR (MDRD) Non-Af 45 L, BUN/Creatinine Ratio 18.2, Glucose 176 H, Lactic Acid 1.4, Uric Acid 6.9, Calcium 10.4 H, C-React Prot Ext Range 55.90 H 10/17/22 04:50: WBC 10.2, RBC 4.22 L, Hgb 12.5 L, Hct 37.6 L, MCV 89.1, MCH 29.6, MCHC 33.2, RDW Std Deviation 44.6 H, RDW Coeff of Thao 13.6, Plt Count 257, MPV 9.3, Immature Gran % (Auto) 0.500, Neut % (Auto) 82.1 H, Lymph % (Auto) 3.6 L, [place] % (Auto) 13.2 H, Eos % (Auto) 0.3, Baso % (Auto) 0.3, Absolute Neuts (auto) 8.4 H, Absolute Lymphs (auto) 0.37 L, Nucleated RBC % 0, Sodium 140, Potassium 2.7 L*, Chloride 105, Carbon Dioxide 25.0, Anion Gap 10, BUN 28 H, Creatinine 1.51 H, Estim Creat Clear Calc 50.36, Est GFR (MDRD) Af Amer 60, Est GFR (MDRD) Non-Af 49 L, BUN/Creatinine Ratio 18.5, Glucose 178 H, Calcium 10.1 10/17/22 07:55: POC Glucose 167 H Clinical Impression(s) from Imaging Studies Elbow X-Ray 10/17/22 00:15 IMPRESSION: Soft tissue edema and mild mineralization at the triceps insertion of the olecranon. Differential includes hydroxyapatite deposition and calcified tendinitis, sequela of prior injury, or possibly acute avulsion injury if there is history of trauma. Allergies/Procedures Done in Hospital Allergies No Known Allergies Allergy (Verified 10/16/22 23:44) Type of Care/Length of Stay Estimated LOS: Convalescent Care Less Than 30 days Type of Care Needed: Skilled Rehab Potential: Good Prognosis: Good Additional Orders/Day of Discharge Day of Discharge: 10/18/22 Discharge Plan Admission Admit Date/Time: 10/17/22 02:32 Primary Reason for Your Visit: Right olecranon bursitis Attending Provider: Kingsley Hollis Primary Care Provider: Mery Raymond Consulting Providers: Lyle Coleman Discharge Orders/Prescriptions Prescriptions: New sennosides-docusate sodium [Stool Softener-Stimulant Laxat] 8.6-50 mg Tablet 2 tab PO BID PRN PRN (Reason: Constipation) Qty: 0 0RF tramadol 50 mg Tablet 50 mg PO Q6H PRN PRN (Reason: Pain Score 6-10) 3 Days Qty: 10 0RF acetaminophen 325 mg Tablet 650 mg PO Q6H PRN PRN (Reason: Pain 1-10 Or Fever>100.7) Qty: 0 0RF insulin glargine [Lantus Solostar U-100 Insulin] 100 unit/mL (3 mL) insulin pen 10 unit subcut DAILY Qty: 15 3RF Rx Instructions: Hold if glucose less than 130 mg/dl Continued (DME) Handicap Placard See Rx Instructions .ROUTE .MEDSUPPLY Qty: 1 0RF Rx Instructions: As directed, length of time 3 years (DME) FreeStyle Tiffanie 2 [place] Misc See Rx Instructions .ROUTE .MEDSUPPLY Qty: 1 0RF Rx Instructions: As directed (DME) FreeStyle Tiffanie 2 Sensor Kit See Rx Instructions .ROUTE .MEDSUPPLY Qty: 2 6RF Rx Instructions: As directed ferrous sulfate 325 mg (65 mg iron) tablet 325 mg PO DAILY Qty: 90 1RF (DME) OneTouch Verio test strips Strip See Rx Instructions .ROUTE .MEDSUPPLY Qty: 100 12RF Rx Instructions: test 3 times daily cinacalcet 30 mg tablet 30 mg PO BID Qty: 60 6RF Humulin R U-500 (Conc) Kwikpen 500 unit/mL (3 mL) insulin pen 30 unit SUBCUT .TIDCM Qty: 6 5RF Ozempic 1 mg/dose (4 mg/3 mL) pen injector 1 mg subcut QWEEK Qty: 3 4RF furosemide 20 mg tablet 40 mg PO BID 90 Days Qty: 360 3RF fenofibrate micronized 200 mg capsule 200 mg PO DAILY Qty: 30 12RF metformin 1,000 mg tablet 1,000 mg PO BIDCM Qty: 180 3RF amlodipine 10 mg tablet 10 mg PO DAILY Qty: 90 3RF ranolazine 500 mg tablet extended release 12 hr 500 mg PO BID Qty: 180 3RF nitroglycerin 0.4 mg tablet, sublingual See Rx Instructions .ROUTE .COMPLEX Qty: 25 10RF Dose Instruction: DISSOLVE 1 TABLET UNDER THE TONGUE NEEDED FOR CHEST PAIN EVERY 5 MINUTES UP TO 3 TIMES. IF NO RELIEF CALL 911. Rx Instructions: DISSOLVE 1 TABLET UNDER THE TONGUE NEEDED FOR CHEST PAIN EVERY 5 MINUTES UP TO 3 TIMES. IF NO RELIEF CALL 911. (DME) pen needle, diabetic [BD Ultra-Fine Lorie Pen Needle] 32 gauge x 5/32 needle See Rx Instructions .ROUTE .MEDSUPPLY Qty: 360 5RF Rx Instructions: 4x/day paroxetine HCl 40 mg tablet 40 mg PO DAILY Qty: 90 3RF Rx Instructions: TAKE 1 TABLET BY MOUTH ONCE DAILY potassium chloride 20 mEq tablet,ER particles/crystals 40 meq PO TID 90 Days Qty: 540 1RF Rx Instructions: TAKE 2 TABLETS BY MOUTH THREE TIMES DAILY cholecalciferol (vitamin D3) 1,250 mcg (50,000 unit) capsule 1,250 mcg PO QWEEK Qty: 8 6RF metoprolol succinate 50 mg tablet extended release 24 hr 50 mg PO BID Qty: 180 3RF clopidogrel 75 mg tablet 75 mg PO DAILY Qty: 90 3RF Held losartan 25 mg tablet 25 mg PO DAILY Qty: 90 3RF Hold Instructions: Hold for 5 days. Discontinued naproxen sodium [Aleve] 220 mg tablet 220 mg PO BID PRN (Reason: pain) Referrals / Follow Up: Mery Raymond MD [Primary Care Provider] - Chema Alex MD [Med Staff - Active Staff] - Within 1 Month Yaima Zaragoza MD [Med Staff - Consulting] - Within 1 Month (for CKD on diuretics) Disposition Disposition (needs filled in before D/C Order can be placed): [facility] [place] Qualifiers: Laterality: right Qualified Code(s): M70.21 - Olecranon bursitis, right elbow
[2022-10-18 07:49] LABS: Anion Gap 6 (5-15); BUN 25 mg/dL (7-18); BUN/Creat Ratio 16.9 RATIO (10-20); Calcium,Total 10.4 mg/dL (8.5-10.1); Chloride 106 mmol/L (98-107); Creatinine, Serum 1.48 mg/dL (0.70-1.30); EST Glomerular Filtration Rate 51 mL/min (>60); Est Glom Filt Rate - Afr Amer 61 mL/min (>60); Estimated Creatinine Clearance 51.38 ml/min; Glucose 134 mg/dL (74-106); Potassium 3.2 mmol/L (3.5-5.1); Sodium Level 138 mmol/L (136-145)
[2022-10-18] MEDS: Ferrous Sulfate 325 MG Tablet PO (08:20)
[2022-10-18] MEDS: Potassium Chloride Oral Tablet 20 MEQ 40 MEQ PO ×2 (08:20→12:12)
[2022-10-18] MEDS: Cinacalcet HCl 30 MG Tablet PO (08:20)
[2022-10-18] MEDS: Insulin Glargine-YFGN 100 UNIT/ML Pen 10 UNIT SC (09:23)
[2022-10-18] MEDS: Insulin U-500 UNITS/ML PEN 30 UNITS SC ×2 (09:23→12:11)
[2022-10-18] MEDS: Enoxaparin 120 MG/0.8 ML Syringe SC (09:24)
[2022-10-18] MEDS: Paroxetine 20 MG Tablet 40 MG PO (09:25)
[2022-10-18] MEDS: Losartan Potassium 25 MG Tablet PO (09:25)
[2022-10-18] MEDS: Ranolazine 500 MG Tablet PO (09:26)
[2022-10-18] MEDS: Meloxicam 7.5 MG Tablet PO (09:26)
[2022-10-18] MEDS: Clopidogrel Bisulfate 75 MG Tablet PO (09:26)
[2022-10-18] MEDS: Fenofibrate 145 MG Tablet PO (09:26)
[2022-10-18] MEDS: Pantoprazole Sodium 40 MG Tablet PO (09:26)
[2022-10-18] MEDS: Metoprolol(XL)Succ 50 MG Tablet PO (09:26)
[2022-10-18] MEDS: amLODIPine 10 MG Tablet PO (09:26)
[2022-10-18] MEDS: traMADol 50 MG Tablet PO (09:32)
--- NOTE | 2022-10-18 11:17 | DS.PCM_ITS ---
Providers Date of Admission: 10/17/22 Date of Discharge: 10/18/22 Primary Care Physician: Dr. Mery Raymond MD Reason For Visit: RIGHT ELBOW AND RIGHT SHOULDER PAIN Diagnosis Discharge Diagnosis (1) Olecranon bursitis: Status: Acute Code(s): M70.20 - Olecranon bursitis, unspecified elbow Qualifiers: Laterality: right Qualified Code(s): M70.21 - Olecranon bursitis, right elbow (2) Debility: Status: Acute Code(s): R53.81 - Other malaise Plan 66-year-old gentleman was admitted with right upper extremity pain shoulder and elbow radiating to wrist. Denies acute injury. He has difficulty in performing ADL. Currently pain is worse at right elbow exacerbated with any type of movement. Right olecranon bursitis Elbow x-ray individually reviewed and shows soft tissue edema and possible hydroxyapatite crystallization/calcified tendinitis. Not enough fluid for aspiration. Patient is started on IV steroid. Low-dose NSAID as anti- inflammatory agent. Discontinue naproxen. Pantoprazole 40 mg daily. As needed Tylenol and ultram ordered ESR is only mildly elevated at 25. CRP of 55.9. Normal white count. 10/14: Patient was treated with NSAID, Mobic 7.5 mg daily for 2 days. Pain is better. Patient is discharged on tramadol. Follow-up with orthopedic surgeon Dr. Holliday in 2 weeks.. Debility and generalized weakness Case management consult PT and OT evaluation. Obstructive sleep apnea/OHS on BiPAP. Patient has morbid obesity BMI 37.5 kg/m?. Patient uses BiPAP at night. Chronic HFpEF and CAD status post stent: Patient had echo in September 2021 reported EF 60%. No major valvular abnormality. Patient follows with Stephanie. He used to follow Dr. Min retired. Follow with Dr. Alex. 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 Hold metformin. Accu-Chek with correction scale insulin ordered. Glucose 178 in BMP. Lantus insulin ordered. 10/18: Glucoses controlled. Creatinine 1.48. His baseline creatinine varies be tween 1.5-1.65. Advised follow-up with game agent in 1 month. Patient on diuretic. Hypertension Blood pressure is not within goal Home blood pressure medication continued. As needed hydralazine ordered. Trend blood pressure and adjust blood pressure medications. DVT prophylaxis Subcutaneous Lovenox ordered. Discharge medication reconciliation done. Discharge follow-up instructions completed. Discharge process discussed with the patient and all questions were answered to patient's satisfaction. Total time spent, exact 35 minutes on discharge meds reconciliation, examination, coordination of care with nurses and ancillary staff, review of imaging and blood test and discussion with the patient on follow-up instructions. Laboratory Results 10/17/22 00:28: WBC 11.7 H, RBC 4.44 L, Hgb 13.1, Hct 39.3 L, MCV 88.5, MCH 29.5, MCHC 33.3, RDW Std Deviation 43.9, RDW Coeff of Thao 13.5, Plt Count 284, MPV 9.7, Immature Gran % (Auto) 0.600, Neut % (Auto) 84.3 H, Lymph % (Auto) 2.8 L, [place] % (Auto) 11.7 H, Eos % (Auto) 0.3, Baso % (Auto) 0.3, Absolute Neuts (auto) 9.8 H, Absolute Lymphs (auto) 0.33 L, Nucleated RBC % 0, ESR 25 H, Sodium 136, Potassium 3.2 L, Chloride 103, Carbon Dioxide 24.0, Anion Gap 9, BUN 30 H, Creatinine 1.65 H, Estim Creat Clear Calc 46.09, Est GFR (MDRD) Af Amer 54 L, Est GFR (MDRD) Non-Af 45 L, BUN/Creatinine Ratio 18.2, Glucose 176 H, Lactic Acid 1.4, Uric Acid 6.9, Calcium 10.4 H, C-React Prot Ext Range 55.90 H 10/17/22 04:50: WBC 10.2, RBC 4.22 L, Hgb 12.5 L, Hct 37.6 L, MCV 89.1, MCH 29.6, MCHC 33.2, RDW Std Deviation 44.6 H, RDW Coeff of Thao 13.6, Plt Count 257, MPV 9.3, Immature Gran % (Auto) 0.500, Neut % (Auto) 82.1 H, Lymph % (Auto) 3.6 L, [place] % (Auto) 13.2 H, Eos % (Auto) 0.3, Baso % (Auto) 0.3, Absolute Neuts (auto) 8.4 H, Absolute Lymphs (auto) 0.37 L, Nucleated RBC % 0, Sodium 140, Potassium 2.7 L*, Chloride 105, Carbon Dioxide 25.0, Anion Gap 10, BUN 28 H, Creatinine 1.51 H, Estim Creat Clear Calc 50.36, Est GFR (MDRD) Af Amer 60, Est GFR (MDRD) Non-Af 49 L, BUN/Creatinine Ratio 18.5, Glucose 178 H, Calcium 10.1 10/17/22 07:55: POC Glucose 167 H Clinical Impression(s) from Imaging Studies Elbow X-Ray 10/17/22 00:15 IMPRESSION: Soft tissue edema and mild mineralization at the triceps insertion of the olecranon. Differential includes hydroxyapatite deposition and calcified tendinitis, sequela of prior injury, or possibly acute avulsion injury if there is history of trauma. Medications at Discharge Home Medications Handicap Placard #1 ea 04/08/20 flash glucose scanning reader (BIScienceStyle Tiffanie 2 [place]) #1 ea 02/16/21 flash glucose sensor (FreeStyle Tiffanie 2 Sensor kit) #2 ea 02/16/21 fenofibrate micronized 200 mg capsule 200 mg PO DAILY #30 caps 11/12/21 metformin 1,000 mg tablet 1,000 mg PO BIDCM DIABETES #180 tabs 11/15/21 amlodipine 10 mg tablet 10 mg PO DAILY BLOOD PRESSURE #90 tabs 11/25/21 losartan 25 mg tablet 25 mg PO DAILY #90 tabs 12/06/21 ranolazine 500 mg tablet,extended release,12 hr 500 mg PO BID #180 tabs 01/11/22 nitroglycerin 0.4 mg sublingual tablet See Rx Instructions .Route .COMPLEX #25 tabs 02/22/22 pen needle, diabetic 32 gauge x 5/32 (BD Ultra-Fine Lorie Pen Needle) #360 ea 04/08/22 paroxetine HCl 40 mg tablet 40 mg PO DAILY depression #90 tabs 04/12/22 potassium chloride 20 mEq tablet,extended release(part/cryst) 40 meq (2 x 20 mEq) PO TID potassium 90 days #540 tabs 08/11/22 ferrous sulfate 325 mg (65 mg iron) tablet 325 mg PO DAILY #90 tabs 08/18/22 Ozempic 1 mg/dose (4 mg/3 mL) subcutaneous pen injector (semaglutide) 1 mg (0.75 mL) subcut QWEEK #3 mL 09/06/22 blood sugar diagnostic (OneTouch Verio test strips) #100 ea 09/06/22 cinacalcet 30 mg tablet 30 mg PO BID #60 tabs 09/06/22 insulin regular hum U-500 conc 500 unit/mL(3 mL) subcut pen (Humulin R U-500 (Conc) Insulin Kwikpen) 30 unit (0.06 mL) subcut .TIDCM #6 mL 09/06/22 cholecalciferol (vitamin D3) 1,250 mcg (50,000 unit) capsule 1,250 mcg PO QWEEK #8 caps 09/07/22 furosemide 20 mg tablet 40 mg (2 x 20 mg) PO BID 90 days #360 tabs 09/09/22 metoprolol succinate 50 mg tablet,extended release 24 hr 50 mg PO BID BLOOD PRESSURE #180 tabs 09/21/22 clopidogrel 75 mg tablet 75 mg PO DAILY BLOOD THINNER #90 tabs 10/03/22 acetaminophen 325 mg tablet 650 mg (2 x 325 mg) PO Q6H PRN PRN Pain 1-10 Or Fever>100.7 #0 tabs 10/18/22 insulin glargine 100 unit/mL (3 mL) subcutaneous pen (Lantus Solostar U-100 Insulin) 10 unit (0.1 mL) subcut DAILY #15 mL 10/18/22 sennosides 8.6 mg-docusate sodium 50 mg tablet (Stool Softener-Stimulant Laxative) 2 tab PO BID PRN PRN Constipation #0 tabs 10/18/22 tramadol 50 mg tablet 50 mg PO Q6H PRN PRN Pain Score 6-10 3 days #10 tabs 10/08 05/02 Physical Exam Narrative Patient wears BiPAP at night for sleep apnea. He did not tell me that he has BiPAP at home therefore more short of breath yesterday night. Patient was put on BiPAP. Lasix 20 mg IV was given. D-dimer was negative. Patient breathing much improved. On furosemide 40 mg twice daily. Physical exam: General: Well-nourished, well-developed. Morbid obesity BMI 37.5 kg/m?. HEENT: Atraumatic, PERRLA, EOMI, Normocephalic Oral: No Gingival or Mucosal Lesions/ Ulcerations Neck: Supple, No JVD, Negative Carotid Bruits CVS: Regular rate and rhythm. S1-S2 present. No murmur, gallop or rub. Respiratory : Air entry diminished bilateral lung bases. Mild crepitation. Abdomen: Soft, nontender, nondistended, normal bowel sounds, no palpable mass. : No dysuria. No suprapubic or renal angle tenderness. Extremities spine: Mild bilateral ankle edema. Nontender with full range of motion. No lumbar spine tenderness. Skin: Normal color, no trauma, abrasions Neuro: Alert, oriented, cranial nerves II through XII grossly intact. Psychiatry: Normal mood. Normal affect. Weight / BMI Weight Weight: 261 lb 0.437 oz Body Mass Index (BMI) 37.4 ABG / Lab / Microbiology Data 10/17/22 04:50 10/18/22 06:25 Laboratory: Laboratory Results - last 24 hr 10/17/22 12:11: POC Glucose 189 H 10/17/22 16:52: POC Glucose 174 H 10/17/22 22:50: POC Glucose 100 10/18/22 06:25: Sodium 138, Potassium 3.2 L, Chloride 106, Carbon Dioxide 26.0, Anion Gap 6, BUN 25 H, Creatinine 1.48 H, Estim Creat Clear Calc 51.38, Est GFR (MDRD) Af Amer 61, Est GFR (MDRD) Non-Af 51 L, BUN/Creatinine Ratio 16.9, Glucose 134 H, Calcium 10.4 H Meaningful Use Info Meaningful Use Diagnoses (Choose all that apply): None applicable Discharge Plan Admission Admit Date/Time: 10/17/22 02:32 Primary Reason for Your Visit: Right olecranon bursitis Attending Provider: Kingsley Hollis Primary Care Provider: Mery Raymond Consulting Providers: Lyle Coleman Discharge Orders/Prescriptions Prescriptions: New sennosides-docusate sodium [Stool Softener-Stimulant Laxat] 8.6-50 mg Tablet 2 tab PO BID PRN PRN (Reason: Constipation) Qty: 0 0RF tramadol 50 mg Tablet 50 mg PO Q6H PRN PRN (Reason: Pain Score 6-10) 3 Days Qty: 10 0RF acetaminophen 325 mg Tablet 650 mg PO Q6H PRN PRN (Reason: Pain 1-10 Or Fever>100.7) Qty: 0 0RF insulin glargine [Lantus Solostar U-100 Insulin] 100 unit/mL (3 mL) insulin pen 10 unit subcut DAILY Qty: 15 3RF Rx Instructions: Hold if glucose less than 130 mg/dl Continued (DME) Handicap Placard See Rx Instructions .ROUTE .MEDSUPPLY Qty: 1 0RF Rx Instructions: As directed, length of time 3 years (DME) FreeStyle Tiffanie 2 [place] Misc See Rx Instructions .ROUTE .MEDSUPPLY Qty: 1 0RF Rx Instructions: As directed (DME) FreeStyle Tiffanie 2 Sensor Kit See Rx Instructions .ROUTE .MEDSUPPLY Qty: 2 6RF Rx Instructions: As directed ferrous sulfate 325 mg (65 mg iron) tablet 325 mg PO DAILY Qty: 90 1RF (DME) OneTouch Verio test strips Strip See Rx Instructions .ROUTE .MEDSUPPLY Qty: 100 12RF Rx Instructions: test 3 times daily cinacalcet 30 mg tablet 30 mg PO BID Qty: 60 6RF Humulin R U-500 (Conc) Kwikpen 500 unit/mL (3 mL) insulin pen 30 unit SUBCUT .TIDCM Qty: 6 5RF Ozempic 1 mg/dose (4 mg/3 mL) pen injector 1 mg subcut QWEEK Qty: 3 4RF furosemide 20 mg tablet 40 mg PO BID 90 Days Qty: 360 3RF fenofibrate micronized 200 mg capsule 200 mg PO DAILY Qty: 30 12RF metformin 1,000 mg tablet 1,000 mg PO BIDCM Qty: 180 3RF amlodipine 10 mg tablet 10 mg PO DAILY Qty: 90 3RF ranolazine 500 mg tablet extended release 12 hr 500 mg PO BID Qty: 180 3RF nitroglycerin 0.4 mg tablet, sublingual See Rx Instructions .ROUTE .COMPLEX Qty: 25 10RF Dose Instruction: DISSOLVE 1 TABLET UNDER THE TONGUE NEEDED FOR CHEST PAIN EVERY 5 MINUTES UP TO 3 TIMES. IF NO RELIEF CALL 911. Rx Instructions: DISSOLVE 1 TABLET UNDER THE TONGUE NEEDED FOR CHEST PAIN EVERY 5 MINUTES UP TO 3 TIMES. IF NO RELIEF CALL 911. (DME) pen needle, diabetic [BD Ultra-Fine Lorie Pen Needle] 32 gauge x 5/32 needle See Rx Instructions .ROUTE .MEDSUPPLY Qty: 360 5RF Rx Instructions: 4x/day paroxetine HCl 40 mg tablet 40 mg PO DAILY Qty: 90 3RF Rx Instructions: TAKE 1 TABLET BY MOUTH ONCE DAILY potassium chloride 20 mEq tablet,ER particles/crystals 40 meq PO TID 90 Days Qty: 540 1RF Rx Instructions: TAKE 2 TABLETS BY MOUTH THREE TIMES DAILY cholecalciferol (vitamin D3) 1,250 mcg (50,000 unit) capsule 1,250 mcg PO QWEEK Qty: 8 6RF metoprolol succinate 50 mg tablet extended release 24 hr 50 mg PO BID Qty: 180 3RF clopidogrel 75 mg tablet 75 mg PO DAILY Qty: 90 3RF Held losartan 25 mg tablet 25 mg PO DAILY Qty: 90 3RF Hold Instructions: Hold for 5 days. Discontinued naproxen sodium [Aleve] 220 mg tablet 220 mg PO BID PRN (Reason: pain) Referrals / Follow Up: Chema Alex MD [Med Staff - Active Staff] - Within 1 Month Mery Raymond MD [Primary Care Provider] - Yaima Zaragoza MD [Med Staff - Consulting] - Within 1 Month (for CKD on diuretics) Narendra Gary DO [Med Staff - Active Staff] - Within 2 Weeks (for right elbow olecranon bursitis) Disposition Disposition (needs filled in before D/C Order can be placed): [facility] Charges/Coding Visit Charges Inpatient E&M: 51580 Disch Hosp >30min
[2022-10-18 11:46] LABS: Bedside Glucose 180 mg/dL (74-106)
[2022-10-18 11:46] LABS: Bedside Glucose 138 mg/dL (74-106)
--- NOTE | 2022-10-18 12:07 | CASEMGMT ---
Discharge Planning Discharge orders, signed med list and transport time sent to [facility] via [facility]. Physicians will transport patient via wc at 1:30p. SW and nursing notified. Jennifer Stringer, Discharge Planning Asst.
[2022-10-18] MEDS: Furosemide 40 MG Tablet PO (12:10)
[2022-10-18] MEDS: Insulin Lispro 100 UNIT/ML INSULN.PEN SC (12:11)
--- NOTE | 2022-10-18 12:54 | CASEMGMT ---
Social Work Per physician, pt is ready for discharge today. Precert for admission to [facility] has been obtained. SW sent bipap settings to [facility] and they will obtain needed equipment for pt as he states she does not have anyone to bring his from home. PASRR completed in [place]. Discharge orders sent to [facility] via carport. Transportation arranged with [facility] for 1:30 pickup via Wheelchair van. SW updated pt and he is agreeable to discharge plan. Per pt request, phone call to pt brother Miquel and updated on pt disposition. Disposition: [facility], skilled level of care LAURENCE Noble
--- NOTE | 2022-10-18 15:18 | PHA.DC.MR.R ---
Pharmacy [place] Med Reconciliation Pharmacy Service has performed discharge medication reconciliation for this patient upon transfer to [facility]. Medication list reviewed by Rich Breaux PharmD Candidate The patient's discharge medication list was reviewed for discrepancies and discrepancies were resolved. Medications at Discharge Home Medications Handicap Placard #1 ea 04/08/20 flash glucose scanning reader (FreeStyle Tiffanie 2 [place]) #1 ea 02/16/21 flash glucose sensor (FreeStyle Tiffanie 2 Sensor kit) #2 ea 02/16/21 fenofibrate micronized 200 mg capsule 200 mg PO DAILY #30 caps 11/12/21 metformin 1,000 mg tablet 1,000 mg PO BIDCM DIABETES #180 tabs 11/15/21 amlodipine 10 mg tablet 10 mg PO DAILY BLOOD PRESSURE #90 tabs 11/25/21 losartan 25 mg tablet 25 mg PO DAILY #90 tabs 12/06/21 ranolazine 500 mg tablet,extended release,12 hr 500 mg PO BID #180 tabs 01/11/22 nitroglycerin 0.4 mg sublingual tablet See Rx Instructions .Route .COMPLEX #25 tabs 02/22/22 pen needle, diabetic 32 gauge x 5/32 (BD Ultra-Fine Lorie Pen Needle) #360 ea 04/08/22 paroxetine HCl 40 mg tablet 40 mg PO DAILY depression #90 tabs 04/12/22 potassium chloride 20 mEq tablet,extended release(part/cryst) 40 meq (2 x 20 mEq) PO TID potassium 90 days #540 tabs 08/11/22 ferrous sulfate 325 mg (65 mg iron) tablet 325 mg PO DAILY #90 tabs 08/18/22 Ozempic 1 mg/dose (4 mg/3 mL) subcutaneous pen injector (semaglutide) 1 mg (0.75 mL) subcut QWEEK #3 mL 09/06/22 blood sugar diagnostic (OneTouch Verio test strips) #100 ea 09/06/22 cinacalcet 30 mg tablet 30 mg PO BID #60 tabs 09/06/22 insulin regular hum U-500 conc 500 unit/mL(3 mL) subcut pen (Humulin R U-500 (Conc) Insulin Kwikpen) 30 unit (0.06 mL) subcut .TIDCM #6 mL 09/06/22 cholecalciferol (vitamin D3) 1,250 mcg (50,000 unit) capsule 1,250 mcg PO QWEEK #8 caps 09/07/22 furosemide 20 mg tablet 40 mg (2 x 20 mg) PO BID 90 days #360 tabs 09/09/22 metoprolol succinate 50 mg tablet,extended release 24 hr 50 mg PO BID BLOOD PRESSURE #180 tabs 09/21/22 clopidogrel 75 mg tablet 75 mg PO DAILY BLOOD THINNER #90 tabs 10/03/22 acetaminophen 325 mg tablet 650 mg (2 x 325 mg) PO Q6H PRN PRN Pain 1-10 Or Fever>100.7 #0 tabs 10/18/22 insulin glargine 100 unit/mL (3 mL) subcutaneous pen (Lantus Solostar U-100 Insulin) 10 unit (0.1 mL) subcut DAILY #15 mL 10/18/22 sennosides 8.6 mg-docusate sodium 50 mg tablet (Stool Softener-Stimulant Laxative) 2 tab PO BID PRN PRN Constipation #0 tabs 10/18/22 tramadol 50 mg tablet 50 mg PO Q6H PRN PRN Pain Score 6-10 3 days #10 tabs 10/18/22
== END 2022-10-18 15:07 | disposition skilled nursing facility (03) ==
LOC: ED 10-17 02:39 → MS3 10-17 04:05
PROVIDERS: Admitting Provider Hospitalist; Emergency Provider Emergency Medicine; PCP Internal Medicine; Referring Provider Hospitalist; Visit Provider Internal Medicine
DX: M70.21 Olecranon bursitis, right elbow (principal); E11.22 Type 2 diabetes mellitus with diabetic chronic kidney disease; E66.01 Morbid (severe) obesity due to excess calories; Z79.4 Long term (current) use of insulin; N18.32 Chronic kidney disease, stage 3b; R53.81 Other malaise; Z79.02 Long term (current) use of antithrombotics/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; Z68.37 Body mass index [BMI] 37.0-37.9, adult; R53.1 Weakness; E78.00 Pure hypercholesterolemia, unspecified; G89.29 Other chronic pain; I25.10 Atherosclerotic heart disease of native coronary artery without angina pectoris; I12.9 Hypertensive chronic kidney disease with stage 1 through stage 4 chronic kidney disease, or unspecified chronic kidney disease; Z79.84 Long term (current) use of oral hypoglycemic drugs; Z79.899 Other long term (current) drug therapy; Z87.891 Personal history of nicotine dependence; Z86.711 Personal history of pulmonary embolism; Z86.718 Personal history of other venous thrombosis and embolism
CPT/HCPCS: 36415; 73080; 80048; 82962; 83605; 84550; 85025; 85652; 86140; 93005; 94002; 96361; 96372; 96374; 96375; 97110; 97162; 97166; 97535; 99221; 99285; J7120; A4216; G0378; J1940

== ENCOUNTER 2022-10-20 22:48 | Inpatient (IN) | payer MEDICARE, SELFPAY ==
[2021-11-05 09:04] VITALS: BMI 43.3
[2022-10-20 22:50] VITALS: PULSE 75; RESP 16; TEMP 36.5; O2SAT 92; BMI 38.8
[2022-10-20 22:55] VITALS: BP 179/114
--- NOTE | 2022-10-20 23:07 | EKG12_ITS ---
Test Reason : CP Blood Pressure : / mmHG Vent. Rate : 078 BPM Atrial Rate : 000 BPM P-R Int : 000 ms QRS Dur : 102 ms QT Int : 368 ms P-R-T Axes : 000 004 -19 degrees QTc Int : 419 ms Atrial fibrillation Septal infarct , age undetermined Abnormal ECG Confirmed by BAILEE PIZANO, NII ([id number]), medical transcription editor NAZ NORIEGA ([id number]) on 10/21/2022 1:00:26 PM Referred By: IRIS Confirmed By:NII MOROCHO MD
--- NOTE | 2022-10-20 23:07 | ED.VIS.CHEST ---
HPI History of Present Illness Chief Complaint: Chest Pain Informant: patient Onset/Context/Timing Onset: Today Location: Substernal Current Severity: Mild Maximum Severity: Mild Narrative Narrative: Patient presents via EMS secondary to chest pain. He reports having intermittent chest pain over the past 3 hours. He describes it as a heaviness across the midportion of his chest. He also feels that he is more swollen and does have a history of CHF. He states he feels short of breath and has had a cough recently. Patient was admitted to the hospital October 17 secondary to right arm pain. He states while his symptoms initially improved while he was here symptoms have worsened again and he continues to have right arm pain. [facility] Medical History Abnormal chest xray Acquired left ventricular hypertrophy Acute diverticulitis Adult failure to thrive Anemia Anxiety and depression Arthritis Atherosclerosis of coronary artery of elim ira heart without angina pectoris Chest discomfort Chronic hypoxemic respiratory failure Chronic pain of both knees Colon cancer screening Dark stools Debility Diabetes Dyspnea on exertion Epistaxis Essential (primary) hypertension Fatigue Flu vaccine need Generalized weakness Health care maintenance History of DVT (deep vein thrombosis) History of pulmonary embolism Hypercalcemia Hyperparathyroidism Hypertension Hypertriglyceridemia Hypoxia Irregular heart beat Morbid obesity with BMI of 40.0-44.9, adult Near syncope Obesity FAVIAN (obstructive sleep apnea) Osteoarthritis Primary hyperparathyroidism Pulmonary embolism Pure hypercholesterolemia Seizures Shortness of breath Type 2 diabetes mellitus Vertigo Home Medications Handicap Placard #1 ea 04/08/20 [Rx Last Taken Unknown] flash glucose scanning reader (FreeStyle Tiffanie 2 [place]) #1 ea 02/16/21 [Rx Last Taken Unknown] flash glucose sensor (FreeStyle Tiffanie 2 Sensor kit) #2 ea 02/16/21 [Rx Last Taken Unknown] metformin 1,000 mg tablet 1,000 mg PO BIDCM DIABETES #180 tabs 11/15/21 [Rx Last Taken 10/16/22] amlodipine 10 mg tablet 10 mg PO DAILY BLOOD PRESSURE #90 tabs 11/25/21 [Rx Last Taken 10/16/22] losartan 25 mg tablet 25 mg PO DAILY #90 tabs 12/06/21 [Rx Last Taken 10/16/22] ranolazine 500 mg tablet,extended release,12 hr 500 mg PO BID #180 tabs 01/11/22 [Rx Last Taken 10/16/22] nitroglycerin 0.4 mg sublingual tablet See Rx Instructions .Route .COMPLEX #25 tabs 02/22/22 [Rx Last Taken Unknown] pen needle, diabetic 32 gauge x 5/32 (BD Ultra-Fine Lorie Pen Needle) #360 ea 04/08/22 [Rx Last Taken Unknown] paroxetine HCl 40 mg tablet 40 mg PO DAILY depression #90 tabs 04/12/22 [Rx Last Taken 10/16/22] potassium chloride 20 mEq tablet,extended release(part/cryst) 40 meq (2 x 20 mEq) PO TID potassium 90 days #540 tabs 08/11/22 [Rx Last Taken 10/16/22] ferrous sulfate 325 mg (65 mg iron) tablet 325 mg PO DAILY #90 tabs 08/18/22 [Rx Last Taken 10/16/22] Ozempic 1 mg/dose (4 mg/3 mL) subcutaneous pen injector (semaglutide) 1 mg (0.75 mL) subcut QWEEK #3 mL 09/06/22 [Rx Last Taken 10/10/22] blood sugar diagnostic (OneTouch Verio test strips) #100 ea 09/06/22 [Rx Last Taken Unknown] cinacalcet 30 mg tablet 30 mg PO BID #60 tabs 09/06/22 [Rx Last Taken 10/16/22] insulin regular hum U-500 conc 500 unit/mL(3 mL) subcut pen (Humulin R U-500 (Conc) Insulin Kwikpen) 30 unit (0.06 mL) subcut .TIDCM #6 mL 09/06/22 [Rx Last Taken 10/16/22] cholecalciferol (vitamin D3) 1,250 mcg (50,000 unit) capsule 1,250 mcg PO QWEEK #8 caps 09/07/22 [Rx Last Taken 10/10/22] furosemide 20 mg tablet 40 mg (2 x 20 mg) PO BID 90 days #360 tabs 09/09/22 [Rx Last Taken 10/16/22] metoprolol succinate 50 mg tablet,extended release 24 hr 50 mg PO BID BLOOD PRESSURE #180 tabs 09/21/22 [Rx Last Taken 10/16/22] clopidogrel 75 mg tablet 75 mg PO DAILY BLOOD THINNER #90 tabs 10/03/22 [Rx Last Taken 10/16/22] insulin glargine 100 unit/mL (3 mL) subcutaneous pen (Lantus Solostar U-100 Insulin) 10 unit (0.1 mL) subcut DAILY #15 mL 10/18/22 [Rx Last Taken Unknown] tramadol 50 mg tablet 50 mg PO Q6H PRN PRN Pain Score 6-10 3 days #10 tabs 10/18/22 [Rx Last Taken Unknown] acetaminophen 325 mg tablet 650 mg PO Q4H PRN Pain 1-10 Or Fever>100.7 10/20/22 [History Last Taken Unknown] acetaminophen 650 mg rectal suppository 650 mg AL Q4H PRN fever or pain 10/20/22 [History Last Taken Unknown] aluminum-magnesium hydroxide 225 mg-200 mg/5 mL oral suspension 30 ml PO DAILY PRN GI DISTRESS 10/20/22 [History Last Taken Unknown] bisacodyl 10 mg rectal suppository 10 mg AL DAILY PRN constipation 10/20/22 [History Last Taken Unknown] dextrose 40 % oral gel (Glucose Gel) 15 g PO Q15M PRN hypoglycemia 10/20/22 [History Last Taken Unknown] fenofibrate micronized 200 mg capsule 200 mg PO DAILY #30 caps 10/20/22 [Rx Last Taken Unknown] glucagon HCl 1 mg solution for injection (Glucagon (HCl) Emergency Kit) 1 mg IM Q20M PRN hypoglycemia 10/20/22 [History Last Taken Unknown] guaifenesin 200 mg/5 mL oral liquid 200 mg PO Q4H PRN congestion 10/20/22 [History Last Taken Unknown] magnesium hydroxide 400 mg/5 mL oral suspension (Milk of Magnesia) 30 ml PO DAILY PRN constipation 10/20/22 [History Last Taken Unknown] sodium phosphates 19 gram-7 gram/118 mL enema (Enema) 118 ml AL DAILY PRN constipation 10/20/22 [History Last Taken Unknown] Allergy/AdvReac Type Severity Reaction Status Date / Time No Known Allergies Allergy Verified 10/20/22 22:49 Family History Mother Colon cancer Sister CAD (coronary artery disease) CABG x 5 Diabetes Myocardial infarction, Onset Age: 67 Father Crohns disease Surgical History History of appendectomy History of appendectomy 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 Smoking Status: Never smoker second hand exposure: Yes alcohol intake: former year quit: 2003 details: Sober since 2003. substance use type: former substance user Date of last use: 04/10/2004 and marijuana caffeine: Yes Type: carbonated beverages Number of servings: 2 and coffee Number of servings: 2 what type of physical activity do you participate in: none ROS ROS ED Constitutional Constitutional ED: Denies chills or fever(s) Eyes Eyes: Denies change in vision ENT ENT ED: Denies rhinorrhea Cardiovascular Cardiovascular: Reports chest pain Respiratory/Chest Respiratory/Chest: Reports cough and dyspnea Gastrointestinal Gastrointestinal: Denies abdominal pain, nausea or vomiting Musculoskeletal Musculoskeletal: Reports other Details: Lower extremity edema ; Denies back pain or neck pain Neurologic Neurologic: Denies headache(s) Psychiatric Psychiatric: Denies anxiety or depression Hematologic/Lymphatic Hematologic/Lymphatic: Denies easy bleeding or easy bruising Allergic/Immunologic Allergic/Immunologic ED: Denies mouth swelling or tongue swelling EXAM Physical Exam Const Vital Signs: 10/20/22 22:50 10/20/22 22:55 10/20/22 23:07 Temperature 97.7 F L Temperature Source Temporal Pulse Rate 75 Respiratory Rate 16 Blood Pressure 179/114 H Blood Pressure Mean 135 Pulse Ox 92 Oxygen Delivery Method Room Air Room Air 10/21/22 01:33 Temperature Temperature Source Pulse Rate 87 Respiratory Rate 24 H Blood Pressure 161/107 H Blood Pressure Mean 125 Pulse Ox 93 Oxygen Delivery Method Positive obese Nutritional Appearance: obese HEENT Reports moist mucous membranes Chest Wall inspection of chest normal and palpation of chest normal Resp normal respiratory effort and clear to auscultation bilaterally Resp Narrative: Diminished at the bilateral bases. Cardio regular rate and regular rhythm GI soft to palpation and non-tender Extremity Extremity Narrative: 3+ bilateral lower extremity edema, symmetric. 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 EKG obtained to evaluate for cardiac arrhythmia/ischemia. Labwork obtained to evaluate for leukocytosis, anemia, and electrolyte derangement. Chest x-ray obtained to evaluate for acute lung pathology, cardiac size, or mediastinal abnormality. History & Record Review Discussion w/independent historian: EMS personnel and Patient Additional record(s) reviewed:: Prior inpatient record, Prior ED visit and Prior labs Lab Data Attestation: I reviewed the patient's lab results. Labs: Laboratory Results - last 24 hr 10/20/22 23:00 WBC 6.7 RBC 4.09 L Hgb 11.9 L Hct 37.7 L MCV 92.2 MCH 29.1 MCHC 31.6 L RDW Std Deviation 46.5 H RDW Coeff of Thao 13.8 Plt Count 355 MPV 10.3 Immature Gran % (Auto) 0.600 Neut % (Auto) 74.2 H Lymph % (Auto) 9.1 L Blaine % (Auto) 12.7 H Eos % (Auto) 2.7 Baso % (Auto) 0.7 Absolute Neuts (auto) 5.0 Absolute Lymphs (auto) 0.61 L Nucleated RBC % 0 D-Dimer Quant (PE/DVT) 0.70 H* Sodium 139 Potassium 4.6 Chloride 104 Carbon Dioxide 28.0 Anion Gap 7 BUN 32 H Creatinine 1.72 H Estim Creat Clear Calc 44.21 Est GFR (MDRD) Af Amer 51 L Est GFR (MDRD) Non-Af 43 L BUN/Creatinine Ratio 18.6 Glucose 126 H Calcium 12.1 H Troponin I High Sens 29 B-Natriuretic Peptide 225.1 H Radiography Chest X-Ray - ED: 1 View, Read by ED Physician, Chronic Changes and No Infiltrates Diagnostic Testing: Clinical Impression(s) from Imaging Studies Chest X-Ray 10/20/22 23:15 IMPRESSION: No radiographic evidence of acute cardiopulmonary disease. Electronically Signed: Brown Russ MD at 0:21 EDT , Chest CTA 10/21/22 00:03 IMPRESSION: No pulmonary embolism or evidence of acute airspace disease. Nonspecific bilateral hilar adenopathy. Borderline cardiomegaly with mild pulmonary vascular congestion. Electronically Signed: Brown Russ MD at 1:01 EDT Reading Location ID and State: [facility] / [place] Tel , Service support , EKG Initial EKG: Attestation: I personally reviewed and interpreted this EKG as follows: Interpretation: Atrial Fibrillation (Atrial fibrillation with a rate of [address] change.) Treatment and Re-Evaluation :: Patient's EKG at this time reveals atrial fibrillation. I do not see history of A-fib in his documentation and patient does not know of a history of A-fib. CBC reveals normal white count at 6.7 with a hemoglobin of 11.9. Chemistry studies reveal a BUN of 32 and a creatinine 1.72. Troponin is 29. His BNP is slightly elevated at 225. His D-dimer is 0.70. Portable chest x-ray per my interpretation feels chronic changes with no focal infiltrate. Radiology interpretation is reviewed. Given the patient's chest pain and elevated D-dimer, he is sent for a CTA of the chest. This reveals no evidence of pulmonary embolism or acute airspace disease. I discussed atrial fibrillation with the patient and he does not believe he has ever been diagnosed with this before. He will be given a dose of Lovenox at this time and discussed with hospitalist given his chest pain and new onset arrhythmia. Addendum: On review of prior EKGs, it appears the patient had an EKG in the cardiology office in May that was read as atrial fibrillation. When he was recently in the hospital earlier this month he had an EKG that is read as atrial fibrillation. I do not see atrial fibrillation documented in his history as chronic diagnoses. Discharge Plan Dx/Rx/DC Orders Clinical Impression: Chest pain, Atrial fibrillation Disposition Disposition: Acute Care [facility]
--- NOTE | 2022-10-20 23:15 | RAD_ITS ---
INDICATION: chest pain EXAMINATION/TECHNIQUE: X-RAY - XR Chest 1 View COMPARISON: May 20, 2022. FINDINGS: LINES/DEVICES: None. LUNGS: No consolidation, edema or effusion. No pneumothorax. MEDIASTINUM AND CARDIOVASCULAR STRUCTURES: Cardiac silhouette not enlarged. BONES AND SOFT TISSUES: Unremarkable. [Left glenohumeral osteoarthritis. RAD/Chest 1 View (Portable) IMPRESSION: No radiographic evidence of acute cardiopulmonary disease. Electronically Signed: Brown Russ MD at 0:21 EDT ,
[2022-10-20] MEDS: Aspirin 81 MG TAB.CHEW 324 MG PO (23:21)
[2022-10-20 23:35] LABS: Absolute Lymphocyte Count 0.61 X10^3/uL (0.83-4.51); Basophil# 0.05 X10^3/uL; Basophil% 0.7 % (0-1); Eosinophil# 0.18 X10^3/uL; Eosinophils% 2.7 % (0-5); Hematocrit 37.7 % (40-54); Hemoglobin 11.9 g/dL (13.0-16.5); Lymphocyte # 0.61 X10^3/ul (0.83-4.51); Lymphocyte % 9.1 % (19-41); Mean Corp Hgb Conc 31.6 g/dL (32-36); Mean Corpuscular Hgb 29.1 pg (27.0-32.0); Mean Corpuscular Volume 92.2 fL (80-94); Mean Platelet Vol. 10.3 fl (6.2-12.0); Monocyte# 0.85 X10^3/uL; Monocyte% 12.7 % (0-10); NRBC Flagged by Analyzer 0 % (0-5); Neutrophil # 4.96 X10^3/uL (2.7-7.7); Neutrophil % 74.2 % (47-70); Platelet Count 355 K/mm3 (150-450); RBC Distribution Width CV 13.8 % (11.6-14.6); RBC Distribution Width SD 46.5 fl (35.1-43.9); Red Blood Count 4.09 M/mm3 (4.6-6.2); White Blood Count 6.7 K/mm3 (4.4-11.0)
[2022-10-20 23:52] LABS: Anion Gap 7 (5-15); BUN 32 mg/dL (7-18); BUN/Creat Ratio 18.6 RATIO (10-20); Calcium,Total 12.1 mg/dL (8.5-10.1); Chloride 104 mmol/L (98-107); Creatinine, Serum 1.72 mg/dL (0.70-1.30); EST Glomerular Filtration Rate 43 mL/min (>60); Est Glom Filt Rate - Afr Amer 51 mL/min (>60); Estimated Creatinine Clearance 44.21 ml/min; Glucose 126 mg/dL (74-106); Potassium 4.6 mmol/L (3.5-5.1); Sodium Level 139 mmol/L (136-145); Troponin-I HS (w/2H Reflex) 29 pg/mL (3.0-78.0)
[2022-10-20 23:53] LABS: BNP,B-Type NATRIURETIC PEPTIDE 225.1 pg/mL (0-100)
[2022-10-21] VITALS (7 sets, daily range): BP systolic 144–181; BP diastolic 79–117; PULSE 65–90; RESP 14–24; TEMP 36–36.7; O2SAT 92–97; BMI 38.2
--- NOTE | 2022-10-21 00:03 | CT_ITS ---
STUDY: CTA CHEST REASON FOR EXAM: Male, 66 years old. chest pain RADIATION DOSAGE (If Supplied By Facility): CTDIvol = ( 28.04 ) mGy, DLP = ( 803.57 ) mGycm TECHNIQUE: The examination was performed with the intravenous administration of IV 100mL [id number]-[id number]. Post-processing of the angiographic images was performed, with multiplanar reformation and 3D reconstruction. Individualized dose optimization techniques were used for this CT. COMPARISON: Chest radiograph October 20, 2022. FINDINGS: Normal thyroid. Normal enhancement of the bilateral peripheral pulmonary arteries. There is no demonstrated pulmonary embolism. No aortic dissection or aneurysmal dilatation. Mild scattered aortic atherosclerosis. Borderline cardiomegaly. No pericardial effusion.. Normal mediastinum. Multiple bilateral hilar lymph nodes up to 1.3 cm in short axis. Mild bilateral peribronchial thickening. Mild bilateral vascular congestion. Mild dependent atelectasis. No consolidation, effusion, or pneumothorax. Normal chest wall structures. Moderate bilateral glenohumeral osteoarthritis. Bilateral adrenal thickening compatible with hyperplasia CT/CTA Chest W/WO Contrast IMPRESSION: No pulmonary embolism or evidence of acute airspace disease. Nonspecific bilateral hilar adenopathy. Borderline cardiomegaly with mild pulmonary vascular congestion. Electronically Signed: Brown Russ MD at 1:01 EDT ,
--- NOTE | 2022-10-21 01:30 | PCM.HP.STD ---
HPI - General General Date of Admission: 10/21/22 Date of Service: 10/21/22 Chief Complaint: Chest pain, dyspnea, increased edema. HPI Narrative The patient is a 66 y/o M w/ PMHx: Hyperparathyroidism with hypercalcemia, CKD stage III unclear subtype, Chronic normocytic anemia/iron deficiency anemia, Anxiety and Depression, CAD s/p PCI, Asthma, Hx VTE (DVT, PE), HTN, HLD, FAVIAN, Seizure disorder, Diabetes mellitus type II, PAF, recent admission for olecranon bursitis with right upper extremity pain treated with IV steroids, low-dose NSAIDs specifically Mobic discharged on tramadol with plan follow-up with orthopedic surgeon Dr. Gary in 2 weeks. Who presents to the [facility] ED on 10/21/22 with history of intermittent chest discomfort for approximately 3 hours prior to ED arrival noted as a heaviness across the midportion of his chest with complaint of mild increased swelling and edema with dyspnea worse with exertion as well as recent nonproductive cough. In the ED upon evaluation patient appears dyspneic with mild accessory muscle usage although he does improve somewhat once he is assisted to sit up at the bedside. He does state that he feels significantly short of breath but denies any current chest discomfort. Work-up in the ED included T97.7, heart rate 75, BP 179/114, respiratory rate 16, 92% on room air, CBC with WBC 6.7, hemoglobin 0.9, MCV 92.2, platelet 355 with lymphopenia, D-dimer 0.7, BMP with BUN/creatinine 32/1.72, calcium 12.1, BNP 225.1, troponin 29, chest x-ray with no acute cardiopulmonary findings, CTPA with no pulmonary embolism or evidence of acute airspace disease, nonspecific bilateral hilar adenopathy, borderline cardiomegaly with mild pulmonary vascular congestion, EKG with atrial fibrillation with no chart reported history previously but 05/2022 and recent 10/2022 admission EKGs performed demonstrated paroxysmal atrial fibrillation evidence. In the ED patient ministered aspirin 324 mg p.o. x1 as well as Lovenox 120 mg subcu x1. FOR[facility]LY [facility] Medical History (Updated 10/21/22 @ 02:[address] Purvi Jensen MD) Acquired left ventricular hypertrophy Adult failure to thrive Anemia Anxiety and depression Atherosclerosis of coronary artery of [place] heart without angina pectoris Chronic hypoxemic respiratory failure Chronic pain of both knees Diabetes Essential (primary) hypertension History of DVT (deep vein thrombosis) History of pulmonary embolism Hypercalcemia Hyperparathyroidism Hypertriglyceridemia Morbid obesity with BMI of 40.0-44.9, adult FAVIAN (obstructive sleep apnea) Osteoarthritis Primary hyperparathyroidism Pure hypercholesterolemia Seizures Type 2 diabetes mellitus Home Medications Handicap Placard #1 ea 04/08/20 [Rx Last Taken Unknown] flash glucose scanning reader (FreeStyle Tiffanie 2 [place]) #1 ea 02/16/21 [Rx Last Taken Unknown] flash glucose sensor (FreeStyle Tiffanie 2 Sensor kit) #2 ea 02/16/21 [Rx Last Taken Unknown] metformin 1,000 mg tablet 1,000 mg PO BIDCM DIABETES #180 tabs 11/15/21 [Rx Last Taken 10/16/22] amlodipine 10 mg tablet 10 mg PO DAILY BLOOD PRESSURE #90 tabs 11/25/21 [Rx Last Taken 10/16/22] losartan 25 mg tablet 25 mg PO DAILY #90 tabs 12/06/21 [Rx Last Taken 10/16/22] ranolazine 500 mg tablet,extended release,12 hr 500 mg PO BID #180 tabs 01/11/22 [Rx Last Taken 10/16/22] nitroglycerin 0.4 mg sublingual tablet See Rx Instructions .Route .COMPLEX #25 tabs 02/22/22 [Rx Last Taken Unknown] pen needle, diabetic 32 gauge x 5/32 (BD Ultra-Fine Lorie Pen Needle) #360 ea 04/08/22 [Rx Last Taken Unknown] paroxetine HCl 40 mg tablet 40 mg PO DAILY depression #90 tabs 04/12/22 [Rx Last Taken 10/16/22] potassium chloride 20 mEq tablet,extended release(part/cryst) 40 meq (2 x 20 mEq) PO TID potassium 90 days #540 tabs 08/11/22 [Rx Last Taken 10/16/22] ferrous sulfate 325 mg (65 mg iron) tablet 325 mg PO DAILY #90 tabs 08/18/22 [Rx Last Taken 10/16/22] Ozempic 1 mg/dose (4 mg/3 mL) subcutaneous pen injector (semaglutide) 1 mg (0.75 mL) subcut QWEEK #3 mL 09/06/22 [Rx Last Taken 10/10/22] blood sugar diagnostic (Gradient XTouch Verio test strips) #100 ea 09/06/22 [Rx Last Taken Unknown] cinacalcet 30 mg tablet 30 mg PO BID #60 tabs 09/06/22 [Rx Last Taken 10/16/22] insulin regular hum U-500 conc 500 unit/mL(3 mL) subcut pen (Humulin R U-500 (Conc) Insulin Kwikpen) 30 unit (0.06 mL) subcut .TIDCM #6 mL 09/06/22 [Rx Last Taken 10/16/22] cholecalciferol (vitamin D3) 1,250 mcg (50,000 unit) capsule 1,250 mcg PO QWEEK #8 caps 09/07/22 [Rx Last Taken 10/10/22] furosemide 20 mg tablet 40 mg (2 x 20 mg) PO BID 90 days #360 tabs 09/09/22 [Rx Last Taken 10/16/22] metoprolol succinate 50 mg tablet,extended release 24 hr 50 mg PO BID BLOOD PRESSURE #180 tabs 09/21/22 [Rx Last Taken 10/16/22] clopidogrel 75 mg tablet 75 mg PO DAILY BLOOD THINNER #90 tabs 10/03/22 [Rx Last Taken 10/16/22] insulin glargine 100 unit/mL (3 mL) subcutaneous pen (Lantus Solostar U-100 Insulin) 10 unit (0.1 mL) subcut DAILY #15 mL 10/18/22 [Rx Last Taken Unknown] tramadol 50 mg tablet 50 mg PO Q6H PRN PRN Pain Score 6-10 3 days #10 tabs 10/18/22 [Rx Last Taken Unknown] acetaminophen 325 mg tablet 650 mg PO Q4H PRN Pain 1-10 Or Fever>100.7 10/20/22 [History Last Taken Unknown] acetaminophen 650 mg rectal suppository 650 mg [place] Q4H PRN fever or pain 10/20/22 [History Last Taken Unknown] aluminum-magnesium hydroxide 225 mg-200 mg/5 mL oral suspension 30 ml PO DAILY PRN GI DISTRESS 10/20/22 [History Last Taken Unknown] bisacodyl 10 mg rectal suppository 10 mg [place] DAILY PRN constipation 10/20/22 [History Last Taken Unknown] dextrose 40 % oral gel (Glucose Gel) 15 g PO Q15M PRN hypoglycemia 10/20/22 [History Last Taken Unknown] fenofibrate micronized 200 mg capsule 200 mg PO DAILY #30 caps 10/20/22 [Rx Last Taken Unknown] glucagon HCl 1 mg solution for injection (Glucagon (HCl) Emergency Kit) 1 mg IM Q20M PRN hypoglycemia 10/20/22 [History Last Taken Unknown] guaifenesin 200 mg/5 mL oral liquid 200 mg PO Q4H PRN congestion 10/20/22 [History Last Taken Unknown] magnesium hydroxide 400 mg/5 mL oral suspension (Milk of Magnesia) 30 ml PO DAILY PRN constipation 10/20/22 [History Last Taken Unknown] sodium phosphates 19 gram-7 gram/118 mL enema (Enema) 118 ml [place] DAILY PRN constipation 10/20/22 [History Last Taken Unknown] Allergy/AdvReac Type Severity Reaction Status Date / Time No Known Allergies Allergy Verified 10/20/22 22:49 Family History Mother Colon cancer Sister CAD (coronary artery disease) CABG x 5 Diabetes Myocardial infarction, Onset Age: 67 Father Crohns disease Surgical History History of appendectomy History of appendectomy 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) History of coronary artery stent placement (10/12/21) History of eye surgery History of hip replacement History of intestinal surgery History of knee surgery History of tonsillectomy and adenoidectomy Social History household members: none housing: apartment other: Hx working in [employer] and [employer]. Smoking Status: Never smoker second hand exposure: Yes alcohol intake: former year quit: 2003 details: Sober since 2003. substance use type: former substance user Date of last use: 04/10/2004 and marijuana caffeine: Yes Type: carbonated beverages Number of servings: 2 and coffee Number of servings: 2 what type of physical activity do you participate in: none ROS ROS Narrative Admission Review of Systems: CONSTITUTIONAL: No weight loss, fever, chills, + weakness or fatigue. HEENT: Eyes: No visual loss, blurred vision, double vision or yellow sclerae. Ears, Nose, Throat: No hearing loss, sneezing, runny nose or sore throat. SKIN: No rash or itching, lesions, wounds. CARDIOVASCULAR: + chest pain, chest pressure or chest discomfort, palpitations, edema, orthopnea. No syncopal events. RESPIRATORY: + shortness of breath, No cough or sputum, wheezing, hemoptysis. GASTROINTESTINAL: No anorexia, nausea, emesis, diarrhea, abdominal pain, melena, BRBPR. GENITOURINARY: No dysuria, frequency, urgency or retention. NEUROLOGICAL: No dizziness, headache, syncope, paralysis, ataxia, numbness or tingling in the extremities, focal weakness, change in bowel or bladder control, seizure. MUSCULOSKELETAL: + muscle, back pain, joint pain or stiffness. HEMATOLOGIC: + anemia, bleeding or bruising. LYMPHATICS: No enlarged nodes. No history of splenectomy. PSYCHIATRIC: + history of depression or anxiety. ENDOCRINOLOGIC: No reports of sweating, cold or heat intolerance. No polyuria or polydipsia. ALLERGIES: No history of asthma, hives, eczema or rhinitis. Vital Signs Vital Signs Vital Signs: 10/20/22 22:50 10/20/22 22:55 10/20/22 23:07 Temperature 97.7 F L Temperature Source Temporal Pulse Rate 75 Respiratory Rate 16 Blood Pressure 179/114 H Blood Pressure Mean 135 Pulse Ox 92 Oxygen Delivery Method Room Air Room Air Weight Weight: 270 lb 15.17 oz Body Mass Index (BMI) 38.8 Physical Exam Narrative Physical Examination: General: Awake, alert, oriented x 3 and cooperative, seated upright in the ED bed, denies current chest pain but notes dyspnea, evidence mild accessory muscle usage. Skin: Normal color, normal turgor, no icterus, no cyanosis except chronic bilateral lower extremity lymphedema with chronic venous stasis skin changes. HEENT: AT/NC, EOMI, PERRLA, mildly dry MM, no carotid bruits, + JVD noted; however, difficult exam as notable thickened neck. Lungs: Mildly diminished, greater bases, mildly increased RR and mild accessory muscle usage noted, no overt rales, ronchi or wheezing. Heart: Irregular, rate controlled; no gallop, rub audible. Abdomen: Soft, obese, NTTP, ND, distant normal BS, no HSM. Extremities: No cyanosis, no clubbing, chronic bilateral lower extremity lymphedema 2+ pitting with chronic venous stasis skin changes. Neurological: Patient awake, alert, oriented as noted, cognitive function intact; pupils equally reactive to light and accommodation, cranial nerves II-XII grossly normal, moving all 4 extremities, no focal deficits, strength severely globally decreased secondary to acute presentation. Psychiatric: Affect appears fatigued, appears dyspneic, no acute evidence of depressive or anxiety feelings but does have underlying history. Results Lab / Micro Data 10/20/22 23:00 10/20/22 23:00 Labs: Laboratory Results - last 24 hr 10/20/22 23:00: WBC 6.7, RBC 4.09 L, Hgb 11.9 L, Hct 37.7 L, MCV 92.2, MCH 29.1, MCHC 31.6 L, RDW Std Deviation 46.5 H, RDW Coeff of Thao 13.8, Plt Count 355, MPV 10.3, Immature Gran % (Auto) 0.600, Neut % (Auto) 74.2 H, Lymph % (Auto) 9.1 L, [place] % (Auto) 12.7 H, Eos % (Auto) 2.7, Baso % (Auto) 0.7, Absolute Neuts (auto) 5.0, Absolute Lymphs (auto) 0.61 L, Nucleated RBC % 0, D-Dimer Quant (PE/DVT) 0.70 H*, Sodium 139, Potassium 4.6, Chloride 104, Carbon Dioxide 28.0, Anion Gap 7, BUN 32 H, Creatinine 1.72 H, Estim Creat Clear Calc 44.21, Est GFR (MDRD) Af Amer 51 L, Est GFR (MDRD) Non-Af 43 L, BUN/Creatinine Ratio 18.6, Glucose 126 H, Calcium 12.1 H, Troponin I High Sens 29, B-Natriuretic Peptide 225.1 H Radiology Impression Chest X-Ray 10/20/22 23:15 IMPRESSION: No radiographic evidence of acute cardiopulmonary disease. Electronically Signed: Brown Russ MD at 0:21 EDT , Chest CTA 10/21/22 00:03 IMPRESSION: No pulmonary embolism or evidence of acute airspace disease. Nonspecific bilateral hilar adenopathy. Borderline cardiomegaly with mild pulmonary vascular congestion. Electronically Signed: Brown Russ MD at 1:01 EDT , Assessment & Plan Assessment/Plan (1) Atrial fibrillation: PLAN: Plan The patient is a 66 y/o M w/ PMHx: Hyperparathyroidism with hypercalcemia, CKD stage III unclear subtype, Chronic normocytic anemia/iron deficiency anemia, Anxiety and Depression, CAD s/p PCI, Asthma, Hx VTE (DVT, PE), HTN, HLD, FAVIAN, Seizure disorder, Diabetes mellitus type II, PAF, recent admission for olecranon bursitis with right upper extremity pain treated with IV steroids, low-dose NSAIDs specifically Mobic discharged on tramadol with plan follow-up with orthopedic surgeon Dr. Gary in 2 weeks. Who presents to the [facility] ED on 10/21/22 with history of intermittent chest discomfort for approximately 3 hours prior to ED arrival noted as a heaviness across the midportion of his chest with complaint of mild increased swelling and edema with dyspnea worse with exertion as well as recent nonproductive cough. #1. Chest discomfort, Dyspnea, suspected in part secondary to Paroxysmal atrial fibrillation, newer onset although unclear history with associated volume overload/CHF exacerbation, unclear type: EKG in ED w/ atrial fibrillation, rate controlled. Will admit to PCU, maintain on telemetry, obtain cardiac enzyme serial set, obtain magnesium level, obtain ECHO as none noted recently, obtain TSH level, will initiate judicious IV diuresis given underlying chronic kidney disease. CHADs scoring appropriate for anticoagulation start at this time w/ Lovenox initiated in the ED however will transition to oral Eliquis therapy. We will continue oral metoprolol regimen. Low threshold to involve Cardiology pending results and response to treatment. #2. Recent right olecranon bursitis: Evaluated inpatient with treatment with short course anti-inflammatory as well as steroids with discharge on tramadol with plan follow-up outpatient with orthopedic surgeon Dr. Gary. #3. Hyperparathyroidism with hypercalcemia: Admission BMP with calcium 12.1, will obtain hepatic profile to assess for corrected Ca++ and request ICa, maintained on Cinacalcet regimen. Pending results may need further adjustment and more aggressive outpatient follow-up. #4. CAD: Status post PCI LAD PTCA/DANIEL 2016 and OM1 PCI 10/2021, will continue home Plavix, not on statin therapy but on fenofibrate, metoprolol, losartan, Ranexa home regimen. Most recent 10/12/2021 cardiac catheterization with [place] multivessel coronary disease with staged for FFR of the LAD with referral at that time for immediate PCI of OM1. #5. Diabetes mellitus type II: Hold oral home regimen, continue home insulin regimen, ADA diet, accu checks w/ ISS. #6. Chronic Kidney Disease Stage III, unclear subtype: Admission BUN/Cr 32/1.72, baseline renal function appears primarily 1.3-1.6 more recently repeat BMP in AM. Follows with Dr. Zaragoza with nephrology. #7. Chronic normocytic anemia/iron deficiency anemia: Admission hemoglobin 11.9, MCV 92.2 baseline appears primarily 12 range, will continue to trend, continue iron supplementation. #8. Anxiety and depression: We will continue patient home Paxil regimen. #9. Hypertension: Continue home regimen including amlodipine, losartan, metoprolol, IV Lasix as noted with hold parameters as needed, PRN hydralazine. #10. Hyperlipidemia: We will continue patient home chronic fenofibrate regimen, not on statin therapy per most current list noted, FLP in AM. #11. Chart reported seizure history: Not on any antiepileptic medication, encourage continued close outpatient monitoring. #12. FAVIAN: CPAP nightly. #13. DVT prophylaxis: Eliquis being initiated as noted. #14. CODE status: Patient HCPOA and living will are not in place. Discussed CODE status at length including difference between FULL code, DNR-CCA and DNR-CC status. Following discussions about the differences in these status, requested Full code status. Advanced Care Planning Face to Face Time: 16 minutes. Admission Evaluation Time spent evaluating chart, patient history, patient evaluation, care planning and discussion with specialists: 76 minutes. Charges/Coding Visit Charges Inpatient E&M: 63644 Init Hosp L3 Procedures Hospitalists Procedures: 82176 Advncd Care Plan 30 Min
[2022-10-21 01:32] LABS: Reflex Troponin-HS? (from REC) Y
[2022-10-21] MEDS: Enoxaparin 120 MG/0.8 ML Syringe SC (01:32)
[2022-10-21 02:06] LABS: Magnesium 1.8 mg/dL (1.6-2.6); Troponin-I HS 29 pg/mL (3.0-78.0)
--- NOTE | 2022-10-21 03:27 | EKG12_ITS ---
Test Reason : CP ADMIT Blood Pressure : / mmHG Vent. Rate : 076 BPM Atrial Rate : 000 BPM P-R Int : 000 ms QRS Dur : 106 ms QT Int : 376 ms P-R-T Axes : 000 019 030 degrees QTc Int : 423 ms Atrial fibrillation Septal infarct , age undetermined Abnormal ECG When compared with ECG of 20-OCT-2022 23:03, MANUAL COMPARISON REQUIRED, DATA IS UNCONFIRMED Confirmed by BAILEE PIZANO, NII ([id number]), commercial production editor INO BUITRAGO ([id number]) on 10/24/2022 10:45:11 AM Referred By: JAHAIRA Confirmed By:NII MOROCHO MD
[2022-10-21] MEDS: Furosemide 40 MG/4 ML Vial IV ×3 (03:28→17:13)
[2022-10-21] MEDS: 0.9% Saline Lock 10 ML Syringe IV (03:32)
[2022-10-21 05:15] LABS: Absolute Lymphocyte Count 0.65 X10^3/uL (0.83-4.51); Absolute Neutrophil Count 5.8 X10^3/uL (2.0-7.7); Basophil# 0.05 X10^3/uL; Basophil% 0.7 % (0-1); Eosinophil# 0.19 X10^3/uL; Eosinophils% 2.5 % (0-5); Hematocrit 39.4 % (40-54); Hemoglobin 12.5 g/dL (13.0-16.5); Lymphocyte # 0.65 X10^3/ul (0.83-4.51); Lymphocyte % 8.5 % (19-41); Mean Corp Hgb Conc 31.7 g/dL (32-36); Mean Corpuscular Hgb 29.1 pg (27.0-32.0); Mean Corpuscular Volume 91.6 fL (80-94); Mean Platelet Vol. 9.5 fl (6.2-12.0); Monocyte# 0.93 X10^3/uL; Monocyte% 12.2 % (0-10); NRBC Flagged by Analyzer 0 % (0-5); Neutrophil # 5.77 X10^3/uL (2.7-7.7); Neutrophil % 75.6 % (47-70); Platelet Count 386 K/mm3 (150-450); RBC Distribution Width CV 13.5 % (11.6-14.6); RBC Distribution Width SD 45.5 fl (35.1-43.9); White Blood Count 7.6 K/mm3 (4.4-11.0)
[2022-10-21 05:19] LABS: Ionized Calcium 5.79 mg/dL (4.36-5.20)
[2022-10-21] MEDS: Potassium Chloride Oral Tablet 20 MEQ 40 MEQ PO ×3 (05:43→21:52)
[2022-10-21 05:51] LABS: Troponin-I HS 36 pg/mL (3.0-78.0)
--- NOTE | 2022-10-21 05:55 | ECHOD_ITS ---
Reason For Study: PAF, CHF Procedure This was a 2D Doppler, Color Flow transthoracic echocardiogram. Exam performed portable in patient room. Left Ventricle Normal left ventricle. The estimated ejection fraction is 55-60 %. Right Ventricle Normal right ventricle. Normal systolic function. Atria The left atrium is moderately enlarged. The right atrium is mildly enlarged. Mitral Valve There is mild to moderate mitral annular calcification. Moderate (2+) mitral valve insufficiency. Tricuspid Valve Normal tricuspid valve. Mild tricuspid valve insufficiency. Aortic Valve Normal aortic valve. Mild (1+) aortic valve insufficiency. Pulmonic Valve The pulmonic valve is not well visualized. Great Vessels Normal aortic root. Pericardium/Pleural No pericardial effusion. MMode/2D Measurements & Calculations LVIDd: 5.6 cm IVSd: 1.5 cm Ao root diam: 3.8 cm LVIDs: 3.5 cm LVPWd: 0.95 cm LA dimension: 5.0 cm RVDd: 4.2 cm FS: 37.6 % LAV(MOD-bp): 88.1 ml LA A4 area: 25.8 cm2 LA dimension(2D): 5.5 cm LAV(MOD-bp) Indexed: 37.4 ml/m2 LAV(MOD-sp2): 86.7 ml LAV(MOD-sp4): 79.2 ml RA A4 area: 23.1 cm2 Time Measurements MV dec time: 0.18 sec Doppler Measurements & Calculations MV E max alexy: 83.5 cm/sec Ao V2 max: 127.1 cm/sec AI max alexy: 321.2 cm/sec Ao max P.5 mmHg AI max P.3 mmHg Ao V2 mean: 83.6 cm/sec AI dec slope: 137.4 cm/sec2 Ao mean P.3 mmHg AI P1/2t: 684.5 msec Ao V2 VTI: 24.0 cm AV (velocity ratio): 0.76 LV V1 max: 91.7 cm/sec PA V2 max: 78.6 cm/sec TR max alexy: 306.6 cm/sec LV V1 max P.4 mmHg TR max P.6 mmHg LV V1 mean P.9 mmHg LV V1 mean: 66.0 cm/sec LV V1 VTI: 18.3 cm ECHO/Echo Complete Interpretation Summary The estimated ejection fraction is 55-60 %. Normal LV systolic function Moderate MR In comparison to the echo in May 19, 2021 moderate MR noted. Ordering Physician: Purvi Jensen Referring Physician: Mery Raymond Performed By: Sarah Mendez, SAMARAI, RVT
[2022-10-21 05:57] LABS: ALB/GLOB Ratio 0.9 RATIO (0.9-2.4); AST(SGOT) 20 U/L (15-37); Alanine Aminotransfer ALT/SGPT 32 U/L (16-61); Albumin, Serum 3.5 g/dL (3.2-5.0); Alkaline Phosphatase 61 U/L (45-117); Anion Gap 8 (5-15); BUN 29 mg/dL (7-18); BUN/Creat Ratio 17.3 RATIO (10-20); Calcium,Total 11.5 mg/dL (8.5-10.1); Chloride 104 mmol/L (98-107); Cholesterol 165 mg/dL (200); Creatinine, Serum 1.68 mg/dL (0.70-1.30); EST Glomerular Filtration Rate 44 mL/min (>60); Est Glom Filt Rate - Afr Amer 53 mL/min (>60); Estimated Creatinine Clearance 45.26 ml/min; Globulin 3.7 g/dL (2.2-4.2); Glucose 115 mg/dL (74-106); High Density Lipoprotein 25 mg/dL; Potassium 4.3 mmol/L (3.5-5.1); Protein, Total 7.2 g/dL (6.4-8.2); Sodium Level 139 mmol/L (136-145); Thyroid Stim Hormone (TSH) 2.83 uIU/mL (0.358-3.74); Triglycerides 192 mg/dL; Very Low Density Lipoprotein 38 mg/dL (5-40)
--- NOTE | 2022-10-21 08:17 | PCM.PN.HOSP ---
Reason for Visit Reason for Visit: Diagnoses Unspecified atrial fibrillation (10/21/22) Subjective Subjective Patient is a 66-year-old gentleman with multiple comorbidities admitted with chest discomfort Objective Data Objective Data Vital Signs: Vital Signs Temp Pulse Resp BP Pulse Ox O2 Del Method O2 Flow Rate 97.1 F L 65 16 154/82 H 97 Nasal Cannula 2 10/21/22 07:49 10/21/22 07:49 10/21/22 07:49 10/21/22 07:49 10/21/22 07:49 10/21/22 07:49 10/21/22 07:49 Oxygen Flow Rate (L/min) 2 Oxygen Delivery Method Nasal Cannula Weight: 120.7 kg Body Mass Index (BMI) 38.2 Intake & Output: Intake and Output for Last 24 Hours 10/19/22 10/20/22 10/21/22 23:59 23:59 23:59 Intake Total 500 / 500 Balance 500 / 500 Lab / Micro Data 10/21/22 05:04 10/21/22 05:04 Labs: Laboratory Results - last 24 hr 10/20/22 23:00: WBC 6.7, RBC 4.09 L, Hgb 11.9 L, Hct 37.7 L, MCV 92.2, MCH 29.1, MCHC 31.6 L, RDW Std Deviation 46.5 H, RDW Coeff of Thao 13.8, Plt Count 355, MPV 10.3, Immature Gran % (Auto) 0.600, Neut % (Auto) 74.2 H, Lymph % (Auto) 9.1 L, [place] % (Auto) 12.7 H, Eos % (Auto) 2.7, Baso % (Auto) 0.7, Absolute Neuts (auto) 5.0, Absolute Lymphs (auto) 0.61 L, Nucleated RBC % 0, D-Dimer Quant (PE/DVT) 0.70 H*, Sodium 139, Potassium 4.6, Chloride 104, Carbon Dioxide 28.0, Anion Gap 7, BUN 32 H, Creatinine 1.72 H, Estim Creat Clear Calc 44.21, Est GFR (MDRD) Af Amer 51 L, Est GFR (MDRD) Non-Af 43 L, BUN/Creatinine Ratio 18.6, Glucose 126 H, Calcium 12.1 H, Troponin I High Sens 29, B-Natriuretic Peptide 225.1 H 10/21/22 01:45: Magnesium 1.8, Troponin I High Sens 29 10/21/22 05:04: WBC 7.6, RBC 4.30 L, Hgb 12.5 L, Hct 39.4 L, MCV 91.6, MCH 29.1, MCHC 31.7 L, RDW Std Deviation 45.5 H, RDW Coeff of Thao 13.5, Plt Count 386, MPV 9.5, Immature Gran % (Auto) 0.500, Neut % (Auto) 75.6 H, Lymph % (Auto) 8.5 L, [place] % (Auto) 12.2 H, Eos % (Auto) 2.5, Baso % (Auto) 0.7, Absolute Neuts (auto) 5.8, Absolute Lymphs (auto) 0.65 L, Nucleated RBC % 0, Sodium 139, Potassium 4.3, Chloride 104, Carbon Dioxide 27.0, Anion Gap 8, BUN 29 H, Creatinine 1.68 H, Estim Creat Clear Calc 45.26, Est GFR (MDRD) Af Amer 53 L, Est GFR (MDRD) Non-Af 44 L, BUN/Creatinine Ratio 17.3, Glucose 115 H, Calcium 11.5 H, Total Bilirubin 0.70, AST 20, ALT 32, Alkaline Phosphatase 61, Troponin I High Sens 36, Total Protein 7.2, Albumin 3.5, Globulin 3.7, Albumin/Globulin Ratio 0.9, Triglycerides 192, Cholesterol 165, LDL Cholesterol 102, VLDL Cholesterol 38, HDL Cholesterol 25 L, TSH 2.83 10/21/22 05:16: Ionized Calcium 5.79 H Radiography Diagnostic Testing: Radiology Impression Chest X-Ray 10/20/22 23:15 IMPRESSION: No radiographic evidence of acute cardiopulmonary disease. Electronically Signed: Brown Russ MD at 0:21 EDT , Chest CTA 10/21/22 00:03 IMPRESSION: No pulmonary embolism or evidence of acute airspace disease. Nonspecific bilateral hilar adenopathy. Borderline cardiomegaly with mild pulmonary vascular congestion. Electronically Signed: Brown Russ MD at 1:01 EDT , Physical Exam Narrative GENERAL: cooperative HEENT: Atraumatic; normocephalic EYES; Anicteric, Normal Conjunctiva NECK; supple, normal thyroid, RESPIRATORY: Diminished to auscultation CARDIOVASCULAR: Regular S1 S2, GI: soft, normoactive bowel sounds, : No Renal angle tenderness; EXTREMITIES: Lateral lower extremity stasis dermatitis MUSCULOSKELETAL: no muscle wasting NEURO: Awake; no lateralizing signs. SKIN: As described above PSYCH; Flat affect Assessment & Plan Assessment/Plan (1) Atrial fibrillation: PLAN: Plan Patient is a 66-year-old gentleman with multiple comorbidities admitted with chest discomfort 1. Chest discomfort ? Admitted to monitored bed, subsequent serial cardiac enzymes ordered. Given patient's significant past cardiac history ordered nuclear stress test to rule out ischemia 2. Coronary artery disease ? With history of PCI LAD PTCA/DANIEL 2016 and OM1 PCI 10/2021, 3. Paroxysmal A-fib ? Controlled on systemic anticoagulation with apixaban 4. Right olecranon bursitis ? Managed with anti-inflammatory medications as well as steroid and tramadol for pain plans for patient to follow-up with orthopedic surgeon Dr. Gary as outpatient 5. Hyperparathyroidism with history of hypercalcemia ? Patient is on Cinacalcet 6. Hypertension - Blood pressure controlled, home medications continued with dose adjustment as needed 7. Diabetes mellitus type II -patient's oral hypoglycemics held. Placed on long acting insulin, Accu-Cheks a.c. and at bedtime and covered with sliding scale insulin 8. Chronic kidney disease stage III ? Kidney function at baseline 9. Depression with anxiety ? Patient is on SSRI regimen?Paxil did continue 10. Dyslipidemia ? Patient is on fenofibrate 11. Class II obesity with BMI of 38 point ? Complicating care weight loss advised 12. Obstructive sleep apnea ? On CPAP at night 13. DVT prophylaxis ? On apixaban Time spent in the patient's overall evaluation,decision-making process, review of diagnostic data, adjustment of management, discussion with other providers, nursing nursing and ancillary staff involved in patient's care documentation, 50 minutes Charges/Coding Visit Charges Inpatient E&M: 70519 Subs Hosp L3
[2022-10-21 08:43] LABS: Bedside Glucose 104 mg/dL (74-106)
--- NOTE | 2022-10-21 08:56 | CASEMGMT ---
Discharge Planning Patient resides at [facility] and wishes to return. Updates sent via [employer] Jennifer Stringer, Discharge Planning Asst.
--- NOTE | 2022-10-21 08:59 | CASEMGMT ---
Discharge Planning Patient will need pre-cert to return to [facility]. Jennifer Stringer, Discharge Planning Asst.
--- NOTE | 2022-10-21 09:09 | CASEMGMT ---
SW met with patient and confirmed his plan is to return to [facility] at discharge. Patient will require a pre-cert before he can return to [facility]. Plan: [facility] pending patient being medically ready and pre-cert. Dipika FANG
[2022-10-21] MEDS: Fenofibrate 145 MG Tablet PO (11:14)
[2022-10-21] MEDS: Losartan Potassium 25 MG Tablet PO (11:14)
[2022-10-21] MEDS: Insulin Glargine-YFGN 100 UNIT/ML Pen 10 UNIT SC (11:14)
[2022-10-21] MEDS: Metoprolol(XL)Succ 50 MG Tablet PO ×2 (11:14→21:53)
[2022-10-21] MEDS: amLODIPine 10 MG Tablet PO (11:15)
[2022-10-21] MEDS: Cinacalcet HCl 30 MG Tablet PO ×2 (11:15→21:54)
[2022-10-21] MEDS: Ferrous Sulfate 325 MG Tablet PO (11:15)
[2022-10-21] MEDS: Paroxetine 20 MG Tablet 40 MG PO (11:15)
[2022-10-21] MEDS: Clopidogrel Bisulfate 75 MG Tablet PO (11:15)
[2022-10-21] MEDS: Ranolazine 500 MG Tablet PO ×2 (11:15→21:54)
[2022-10-21] MEDS: APIXABAN 5 MG TABLET PO ×2 (11:26→21:50)
[2022-10-21 11:37] LABS: Bedside Glucose 146 mg/dL (74-106)
--- NOTE | 2022-10-21 11:57 | STRESSREP ---
Stress Test Report Pharmacologic/Lexiscan myocardial perfusion stress test. Indication; 66-year-old patient, with symptoms of chest pain Has history of CAD prior coronary artery stent Atrial fibrillation, FAVIAN, hyperlipidemia Asthma, diabetes mellitus, hypertension Underwent Lexiscan sestamibi myocardial perfusion study. Stress protocol: Resting EKG demonstrates. Underlying atrial fibrillation with controlled ventricular rate. ST depression was noted in the inferolateral lead including lead 2, 3 aVF and V4 to V5. 0.4 mg of regadenoson was infused per usual protocol followed by rapid intravenous saline flush injection continuous EKG monitoring was performed. The maximum heart rate attained was 100 05 bpm which was 67% of maximum predicted heart . Stress EKG showed[, no significant change from the resting EKG, with maximum heart rate of 105bpm. Arrhythmia: Patient remains in A-fib with controlled ventricular rate, unifocal PVC Symptoms: Patient had no symptoms of chest pain Blood pressure at rest: 200/100 mmHg blood pressure at the end of stress: 170/88 mmHg Myocardial perfusion protocol. 14 mCi ]of Technetium 99m Sestamibi was injected at rest. [ 0.4 mg ]of Regadenoson was infused per usual protocol peak infusion[44.8 mCi ]of Technetium 99m sestamibi was injected. Stress images were obtained stress and rest images were reconstructed and compared in the short axis vertical and horizontal long axis. Gated images were also obtained Perfusion SPECT analysis: Review of the images demonstrate reduced uptake of sestamibi in the inferior and post stress images demonstrate moderate reduced uptake in the anterior, lateral and inferior myocardium Consistent with reversible myocardial ischemia. Reduced tracer uptake in the inferior myocardium consistent with prior inferior NV. With inferior cisco-infarct ischemia and anterior and lateral reversible myocardial ischemia Gated SPECT analysis: The gated ejection fraction is 44% with anteroapical hypokinesia Conclusion: Abnormal Lexiscan sestamibi study with inferior prior NV with cisco-infarct inferior ischemia An anterolateral reversible myocardial ischemia. Patient has no symptoms of chest pain to report. Reduced LV systolic dysfunction with a calculated EF as specified. To correlate with the clinical presentation with possible cardiac catheterization. Ty Rocha MD,FACC,[facility]
[2022-10-21 13:09] LABS: Ionized Calcium Order ORDER TUBE
[2022-10-21] MEDS: Insulin Lispro 100 UNIT/ML INSULN.PEN SC (16:50)
[2022-10-21 17:04] LABS: Bedside Glucose 209 mg/dL (74-106)
[2022-10-21] MEDS: Insulin U-500 UNITS/ML PEN 30 UNITS SC (17:13)
[2022-10-21] MEDS: traMADol 50 MG Tablet PO (20:43)
[2022-10-21 21:34] LABS: Bedside Glucose 104 mg/dL (74-106)
[2022-10-22] VITALS (8 sets, daily range): BP systolic 140–168; BP diastolic 79–100; PULSE 65–89; RESP 12–18; TEMP 36.6–36.7; O2SAT 92–97; BMI 38.2
--- NOTE | 2022-10-22 03:44 | CPS ---
PT REFUSED PAP THERAPY FOR THE NIGHT
[2022-10-22] MEDS: Potassium Chloride Oral Tablet 20 MEQ 40 MEQ PO ×3 (06:05→22:00)
[2022-10-22] MEDS: Insulin Lispro 100 UNIT/ML INSULN.PEN SC ×3 (06:06→16:31)
--- NOTE | 2022-10-22 08:08 | PN.HOSP_ITS ---
Reason for Visit Reason for Visit: Diagnoses Unspecified atrial fibrillation (10/21/22) Subjective Subjective Underwent nuclear stress test which demonstrated demonstrate reduced uptake of sestamibi in the inferior and post stress images demonstrate moderate reduced uptake in the anterior, lateral and inferior myocardium Consistent with reversible myocardial ischemia. Reduced tracer uptake in the inferior myocardium consistent with prior inferior OH. With inferior cisco- infarct ischemia and anterior and lateral reversible myocardial ischemia. Consult subsequently placed to cardiology Objective Data Objective Data Vital Signs: Vital Signs Temp Pulse Resp BP Pulse Ox O2 Del Method O2 Flow Rate 98.1 F 68 16 168/87 H 96 Room Air 2 10/22/22 03:27 10/22/22 03:27 10/22/22 03:27 10/22/22 03:27 10/22/22 03:27 10/22/22 03:27 10/21/22 07:49 Oxygen Flow Rate (L/min) 2 Oxygen Delivery Method Room Air Weight: 121.1 kg Body Mass Index (BMI) 38.2 Intake & Output: Intake and Output for Last 24 Hours 10/20/22 10/21/22 10/22/22 23:59 23:59 23:59 Intake Total 1800 / 1800 150 / 150 Output Total 1999 / 1999 500 / 500 Balance -200 / -200 -350 / -350 Lab / Micro Data 10/21/22 05:04 10/21/22 05:04 Labs: Laboratory Results - last 24 hr 10/21/22 07:46: POC Glucose 104 10/21/22 11:10: POC Glucose 146 H 10/21/22 16:45: POC Glucose 209 H 10/21/22 21:11: POC Glucose 104 Radiography Diagnostic Testing: Radiology Impression Echocardiogram 10/21/22 05:55 Interpretation Summary The estimated ejection fraction is 55-60 %. Normal LV systolic function Moderate MR In comparison to the echo in May 19, 2021 moderate MR noted. Ordering Physician: Purvi Jensen Referring Physician: Mery Raymond Performed By: Sarah Mendez, RDCS, RVT Physical Exam Narrative GENERAL: cooperative HEENT: Atraumatic; normocephalic EYES; Anicteric, Normal Conjunctiva NECK; supple, normal thyroid, RESPIRATORY: Diminished to auscultation CARDIOVASCULAR: Regular S1 S2, GI: soft, normoactive bowel sounds, : No Renal angle tenderness; EXTREMITIES: Lateral lower extremity stasis dermatitis MUSCULOSKELETAL: no muscle wasting NEURO: Awake; no lateralizing signs. SKIN: As described above PSYCH; Flat affect Assessment & Plan Assessment/Plan (1) Atrial fibrillation: PLAN: Plan Patient is a 66-year-old gentleman with multiple comorbidities admitted with chest discomfort 1. Chest discomfort ? Admitted to monitored bed, subsequent serial cardiac enzymes ordered. Given patient's significant past cardiac history ordered nuclear stress test to rule out ischemia ? 10/22/2022;Underwent nuclear stress test which demonstrated demonstrate reduced uptake of sestamibi in the inferior and post stress images demonstrate moderate reduced uptake in the anterior, lateral and inferior myocardium Consistent with reversible myocardial ischemia. Reduced tracer uptake in the inferior myocardium consistent with prior inferior OH. With inferior cisco-infarct ischemia and anterior and lateral reversible myocardial ischemia. Consult subsequently placed to cardiology 2. Coronary artery disease ? With history of PCI LAD PTCA/DANIEL 2016 and OM1 PCI 10/2021, 3. Paroxysmal A-fib ? Controlled on systemic anticoagulation with apixaban 4. Right olecranon bursitis ? Managed with anti-inflammatory medications as well as steroid and tramadol for pain plans for patient to follow-up with orthopedic surgeon Dr. Gary as outpatient 5. Hyperparathyroidism with history of hypercalcemia ? Patient is on Cinacalcet 6. Hypertension - Blood pressure controlled, home medications continued with dose adjustment as needed 7. Diabetes mellitus type II -patient's oral hypoglycemics held. Placed on long acting insulin, Accu-Cheks a.c. and at bedtime and covered with sliding scale insulin 8. Chronic kidney disease stage III ? Kidney function at baseline 9. Depression with anxiety ? Patient is on SSRI regimen?Paxil did continue 10. Dyslipidemia ? Patient is on fenofibrate 11. Class II obesity with BMI of 38 point ? Complicating care weight loss advised 12. Obstructive sleep apnea ? On CPAP at night 13. DVT prophylaxis ? On apixaban Time spent in the patient's overall evaluation,decision-making process, review of diagnostic data, adjustment of management, discussion with other providers, nursing nursing and ancillary staff involved in patient's care documentation, 35 minutes Charges/Coding Visit Charges Inpatient E&M: 45285 Subs Hosp L2
[2022-10-22 08:25] LABS: Bedside Glucose 207 mg/dL (74-106)
[2022-10-22] MEDS: traMADol 50 MG Tablet PO ×2 (08:58→22:13)
[2022-10-22] MEDS: Ferrous Sulfate 325 MG Tablet PO (08:59)
[2022-10-22] MEDS: Losartan Potassium 25 MG Tablet PO (08:59)
[2022-10-22] MEDS: APIXABAN 5 MG TABLET PO (09:00)
[2022-10-22] MEDS: Furosemide 40 MG/4 ML Vial IV ×2 (09:00→16:31)
[2022-10-22] MEDS: amLODIPine 10 MG Tablet PO (09:00)
[2022-10-22] MEDS: Fenofibrate 145 MG Tablet PO (09:01)
[2022-10-22] MEDS: Clopidogrel Bisulfate 75 MG Tablet PO (09:01)
[2022-10-22] MEDS: Metoprolol(XL)Succ 50 MG Tablet PO ×2 (09:01→22:02)
[2022-10-22] MEDS: Ranolazine 500 MG Tablet PO ×2 (09:01→22:01)
[2022-10-22] MEDS: Paroxetine 20 MG Tablet 40 MG PO (09:01)
[2022-10-22] MEDS: Cinacalcet HCl 30 MG Tablet PO ×2 (09:01→22:01)
[2022-10-22] MEDS: 0.9% Saline Lock 10 ML Syringe IV ×3 (09:02→22:07)
[2022-10-22] MEDS: Insulin U-500 UNITS/ML PEN 30 UNITS SC ×2 (11:16→16:31)
[2022-10-22 11:39] LABS: Bedside Glucose 223 mg/dL (74-106)
--- NOTE | 2022-10-22 14:26 | CON.PCM.CA_ITS ---
Assessment & Plan Assessment/Plan (1) History of coronary artery stent placement: (2) Atherosclerosis of coronary artery of unga heart without angina pectoris: QUALIFIERS: Coronary Disease-Associated Artery/Lesion type: unga artery Qualified Code(s): I25.10 - Atherosclerotic heart disease of unga coronary artery without angina pectoris (3) Diabetes: QUALIFIERS: Diabetes mellitus type: type 2 Diabetes mellitus intermediate manager insulin use: with [facility] use Diabetes mellitus complication status: with hyperglycemia Qualified Code(s): E11.65 - Type 2 diabetes mellitus with hyperglycemia; Z79.4 - 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 Patient admitted to symptoms of chest pain on exertion retrosternal Also he had a history of atrial fibrillation Multiple other medical comorbidities CAD with the stent in the left anterior descending artery that was done in 2016 using [employer] US drug-eluting stent which is 3 x 16 mm Subsequently he had further episode of chest pain and underwent cardiac catheterization and stent of the OM1 in October 29 using drug-eluting stent. Patient has been on anticoagulation with Eliquis for A-fib Heidrick controlled ventricular rate He been on maximal therapy for angina including beta-robinson metoprolol, Ranexa 1000 mg twice daily, losartan, metoprolol I reviewed all his current medication. Cardiac care plan recommendations; Patient has abnormal Lexiscan sestamibi with reversible ischemia noted in the LAD and RCA distribution. With anterior, lateral inferior reversible myocardial ischemia Overall LV function is preserved Also noted his renal function is impaired with elevated creatinine As the patient had a known coronary artery stent to the LAD OM1 and having symptoms of chest pain With abnormal Lexiscan sestamibi I hold the apixaban and start the patient on heparin Also patient has abnormal renal function I requested nephrology consultation The creatinine is 1.68 We will start hydration for this patient Patient is scheduled for cardiac cath on Monday. HPI Consult Data Date of Consult: 10/22/22 HPI Narrative Reason for Consultation: CAD/prior PCI stent LAD/OM/abnormal stress test HPI Narrative: ELIANE KAY, is a 66 M who presents [facility] Medical History (Updated 10/21/22 @ 02:[address] Purvi Jensen MD) Acquired left ventricular hypertrophy Adult failure to thrive Anemia Anxiety and depression Atherosclerosis of coronary artery of unga heart without angina pectoris Chronic hypoxemic respiratory failure Chronic pain of both knees Diabetes Essential (primary) hypertension History of DVT (deep vein thrombosis) History of pulmonary embolism Hypercalcemia Hyperparathyroidism Hypertriglyceridemia Morbid obesity with BMI of 40.0-44.9, adult FAVIAN (obstructive sleep apnea) Osteoarthritis Primary hyperparathyroidism Pure hypercholesterolemia Seizures Type 2 diabetes mellitus Home Medications Handicap Placard #1 ea 04/08/20 [Rx Last Taken Unknown] flash glucose scanning reader ([employer] Tiffanie 2 [place]) #1 ea 02/16/21 [Rx Last Taken Unknown] flash glucose sensor (FreeStyle Tiffanie 2 Sensor kit) #2 ea 02/16/21 [Rx Last Taken Unknown] metformin 1,000 mg tablet 1,000 mg PO BIDCM DIABETES #180 tabs 11/15/21 [Rx Last Taken 10/16/22] amlodipine 10 mg tablet 10 mg PO DAILY BLOOD PRESSURE #90 tabs 11/25/21 [Rx Last Taken 10/16/22] losartan 25 mg tablet 25 mg PO DAILY #90 tabs 12/06/21 [Rx Last Taken 10/16/22] ranolazine 500 mg tablet,extended release,12 hr 500 mg PO BID #180 tabs 01/11/22 [Rx Last Taken 10/16/22] nitroglycerin 0.4 mg sublingual tablet See Rx Instructions .Route .COMPLEX #25 tabs 02/22/22 [Rx Last Taken Unknown] pen needle, diabetic 32 gauge x 5/32 (BD Ultra-Fine Lorie Pen Needle) #360 ea 04/08/22 [Rx Last Taken Unknown] paroxetine HCl 40 mg tablet 40 mg PO DAILY depression #90 tabs 04/12/22 [Rx Last Taken 10/16/22] potassium chloride 20 mEq tablet,extended release(part/cryst) 40 meq (2 x 20 mEq) PO TID potassium 90 days #540 tabs 08/11/22 [Rx Last Taken 10/16/22] ferrous sulfate 325 mg (65 mg iron) tablet 325 mg PO DAILY #90 tabs 08/18/22 [Rx Last Taken 10/16/22] Ozempic 1 mg/dose (4 mg/3 mL) subcutaneous pen injector (semaglutide) 1 mg (0.75 mL) subcut QWEEK #3 mL 09/06/22 [Rx Last Taken 10/10/22] blood sugar diagnostic (OneTouch Verio test strips) #100 ea 09/06/22 [Rx Last Taken Unknown] cinacalcet 30 mg tablet 30 mg PO BID #60 tabs 09/06/22 [Rx Last Taken 10/16/22] insulin regular hum U-500 conc 500 unit/mL(3 mL) subcut pen (Humulin R U-500 (Conc) Insulin Kwikpen) 30 unit (0.06 mL) subcut .TIDCM #6 mL 09/06/22 [Rx Last Taken 10/16/22] cholecalciferol (vitamin D3) 1,250 mcg (50,000 unit) capsule 1,250 mcg PO QWEEK #8 caps 09/07/22 [Rx Last Taken 10/10/22] furosemide 20 mg tablet 40 mg (2 x 20 mg) PO BID 90 days #360 tabs 09/09/22 [Rx Last Taken 10/16/22] metoprolol succinate 50 mg tablet,extended release 24 hr 50 mg PO BID BLOOD PRESSURE #180 tabs 09/21/22 [Rx Last Taken 10/16/22] clopidogrel 75 mg tablet 75 mg PO DAILY BLOOD THINNER #90 tabs 10/03/22 [Rx Last Taken 10/16/22] insulin glargine 100 unit/mL (3 mL) subcutaneous pen (Lantus Solostar U-100 Insulin) 10 unit (0.1 mL) subcut DAILY #15 mL 10/18/22 [Rx Last Taken Unknown] tramadol 50 mg tablet 50 mg PO Q6H PRN PRN Pain Score 6-10 3 days #10 tabs 10/18/22 [Rx Last Taken Unknown] acetaminophen 325 mg tablet 650 mg PO Q4H PRN Pain 1-10 Or Fever>100.7 10/20/22 [History Last Taken Unknown] acetaminophen 650 mg rectal suppository 650 mg NE Q4H PRN fever or pain 10/20/22 [History Last Taken Unknown] aluminum-magnesium hydroxide 225 mg-200 mg/5 mL oral suspension 30 ml PO DAILY PRN GI DISTRESS 10/20/22 [History Last Taken Unknown] bisacodyl 10 mg rectal suppository 10 mg NE DAILY PRN constipation 10/20/22 [History Last Taken Unknown] dextrose 40 % oral gel (Glucose Gel) 15 g PO Q15M PRN hypoglycemia 10/20/22 [History Last Taken Unknown] fenofibrate micronized 200 mg capsule 200 mg PO DAILY #30 caps 10/20/22 [Rx Last Taken Unknown] glucagon HCl 1 mg solution for injection (Glucagon (HCl) Emergency Kit) 1 mg IM Q20M PRN hypoglycemia 10/20/22 [History Last Taken Unknown] guaifenesin 200 mg/5 mL oral liquid 200 mg PO Q4H PRN congestion 10/20/22 [History Last Taken Unknown] magnesium hydroxide 400 mg/5 mL oral suspension (Milk of Magnesia) 30 ml PO DAILY PRN constipation 10/20/22 [History Last Taken Unknown] sodium phosphates 19 gram-7 gram/118 mL enema (Enema) 118 ml NE DAILY PRN constipation 10/20/22 [History Last Taken Unknown] Allergy/AdvReac Type Severity Reaction Status Date / Time No Known Allergies Allergy Verified 10/20/22 22:49 Family History Mother Colon cancer Sister CAD (coronary artery disease) CABG x 5 Diabetes Myocardial infarction, Onset Age: 67 Father Crohns disease Surgical History History of appendectomy History of appendectomy 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 Smoking Status: Never smoker second hand exposure: Yes alcohol intake: former year quit: 2003 details: Sober since 2003. substance use type: former substance user Date of last use: 04/10/2004 and marijuana caffeine: Yes Type: carbonated beverages Number of servings: 2 and coffee Number of servings: 2 what type of physical activity do you participate in: none ROS ROS Narrative 14 point review of system is unremarkable Apart from current presentation symptoms of chest pain. Abnormal Lexiscan sestamibi study. l Physical Exam Cardio Cardio Narrative: Cardiac rhythm is A-fib with slow ventricular rate Cardiovascular exam S1-S2 regular No systolic or diastolic murmur Chest examination diminished air entry bilateral Examination lower extremity no lower extremity edema noted. Risk Stratification Risk Stratification Applicable: Yes Age >/= 65: Yes >/= 3 CAD Risk Factors (HTN, HLD, DM, family hx of CAD, or current smoker): Yes Aspirin Use in the Past 7 Days: Yes Severe Angina (>/= episodes in 24 hours): Yes EKG ST Changes >/= 0.5mm: No Positive Cardiac Marker: No VERONICA Risk Stratification Score: 4 VERONICA % Risk: 20% Risk Objective Data Vital Signs: Vital Signs Temp Pulse Resp BP Pulse Ox O2 Del Method O2 Flow Rate 98.0 F 65 14 152/100 H 97 Room Air 2 10/22/22 09:10 10/22/22 09:10 10/22/22 09:10 10/22/22 09:10 10/22/22 09:10 10/22/22 10:00 10/21/22 07:49 Oxygen Flow Rate (L/min) 2 Oxygen Delivery Method Room Air Weight: 266 lb 15.677 oz Body Mass Index (BMI) 38.2 Intake & Output: Intake and Output for Last 24 Hours 10/20/22 10/21/22 10/22/22 23:59 23:59 23:59 Intake Total 1800 / 1800 150 / 150 Output Total 2000 / 2000 1000 / 1000 Balance -200 / -200 -850 / -850 Lab / Micro Data 10/21/22 05:04 10/21/22 05:04 Labs: Laboratory Results - last 24 hr 10/21/22 16:45: POC Glucose 209 H 10/21/22 21:11: POC Glucose 104 10/22/22 06:04: POC Glucose 207 H 10/22/22 11:14: POC Glucose 223 H Cardiology Labs/Tests Rhythm: EKG: ECHO: Stress Test: Cardiac Cath: PCI: CT Surgery: Holter monitor: EPS: PPM: CXR: Chest CT Scan: Radiography Diagnostic Testing: Radiology Impression Echocardiogram 10/21/22 05:55 Interpretation Summary The estimated ejection fraction is 55-60 %. Normal LV systolic function Moderate MR In comparison to the echo in May 19, 2021 moderate MR noted. Ordering Physician: Purvi Jensen Referring Physician: Mery Raymond Performed By: Sarah Mendez, SAMARIA, RVT
[2022-10-22 16:54] LABS: Bedside Glucose 198 mg/dL (74-106)
[2022-10-22 20:51] LABS: Absolute Lymphocyte Count 0.69 X10^3/uL (0.83-4.51); Absolute Neutrophil Count 5.3 X10^3/uL (2.0-7.7); Basophil# 0.06 X10^3/uL; Basophil% 0.8 % (0-1); Eosinophil# 0.17 X10^3/uL; Eosinophils% 2.3 % (0-5); Hematocrit 40.9 % (40-54); Hemoglobin 12.8 g/dL (13.0-16.5); Lymphocyte # 0.69 X10^3/ul (0.83-4.51); Lymphocyte % 9.5 % (19-41); Mean Corp Hgb Conc 31.3 g/dL (32-36); Mean Corpuscular Hgb 28.8 pg (27.0-32.0); Mean Corpuscular Volume 91.9 fL (80-94); Mean Platelet Vol. 9.6 fl (6.2-12.0); Monocyte# 1.03 X10^3/uL; Monocyte% 14.2 % (0-10); NRBC Flagged by Analyzer 0 % (0-5); Neutrophil # 5.25 X10^3/uL (2.7-7.7); Neutrophil % 72.4 % (47-70); Platelet Count 415 K/mm3 (150-450); RBC Distribution Width CV 13.4 % (11.6-14.6); RBC Distribution Width SD 45.8 fl (35.1-43.9); Red Blood Count 4.45 M/mm3 (4.6-6.2); White Blood Count 7.3 K/mm3 (4.4-11.0)
[2022-10-22 21:01] LABS: International Normalized Ratio 1.3; Partial Thromboplast Time 30.4 Seconds (24.1-36.2); Prothrombin Time (Protime)PT. 16.4 SECONDS (11.7-14.9)
[2022-10-22] MEDS: HEPARIN/D5w 25,000 UNITS 25,000 UNITS/250 ML IV.SOLN. 16 UNITS CONT INF (22:05)
[2022-10-22 22:37] LABS: Bedside Glucose 141 mg/dL (74-106)
[2022-10-23] VITALS (7 sets, daily range): BP systolic 133–156; BP diastolic 87–100; PULSE 65–78; RESP 14–18; TEMP 36.3–36.8; O2SAT 92–96; BMI 36.9
[2022-10-23 05:08] LABS: Partial Thromboplast Time 48.1 Seconds (24.1-36.2)
[2022-10-23] MEDS: Heparin Injection (Vial) 5,000 UNIT/ML VIAL IV ×2 (05:22→12:39)
[2022-10-23] MEDS: Potassium Chloride Oral Tablet 20 MEQ 40 MEQ PO ×3 (05:25→21:12)
--- NOTE | 2022-10-23 07:42 | PCM.PN.HOSP ---
Reason for Visit Reason for Visit: Diagnoses Type 2 diabetes mellitus with hyperglycemia (10/21/22) Atherosclerotic heart disease of platinum coronary artery without angina pectoris (10/21/22) Unspecified atrial fibrillation (10/21/22) Other chest pain (10/21/22) nursing home (current) use of insulin (10/21/22) Presence of coronary angioplasty implant and graft (10/21/22) Subjective Subjective Patient is seen plan is for patient to undergo left heart catheterization on 10/24/2022. On apixaban held started on heparin Objective Data Objective Data Vital Signs: Vital Signs Temp Pulse Resp BP Pulse Ox O2 Del Method O2 Flow Rate 97.8 F 73 16 154/92 H 95 Room Air 2 10/23/22 03:41 10/23/22 03:41 10/23/22 03:41 10/23/22 03:41 10/23/22 03:41 10/23/22 04:38 10/21/22 07:49 Oxygen Flow Rate (L/min) 2 Oxygen Delivery Method Room Air Weight: 121.1 kg Body Mass Index (BMI) 38.2 Intake & Output: Intake and Output for Last 24 Hours 10/21/22 10/22/22 10/23/22 23:59 23:59 23:59 Intake Total 1800 / 1800 450 / 690 473.6 / 473.6 Output Total 1999 / 1999 1650 / 2450 1250 / 1250 Balance -200 / -200 -1200 / -1760 -776.4 / -776.4 Lab / Micro Data 10/22/22 20:15 10/21/22 05:04 Labs: Laboratory Results - last 24 hr 10/22/22 06:04: POC Glucose 207 H 10/22/22 11:14: POC Glucose 223 H 10/22/22 16:27: POC Glucose 198 H 10/22/22 20:15: WBC 7.3, RBC 4.45 L, Hgb 12.8 L, Hct 40.9, MCV 91.9, MCH 28.8, MCHC 31.3 L, RDW Std Deviation 45.8 H, RDW Coeff of Thao 13.4, Plt Count 415, MPV 9.6, Immature Gran % (Auto) 0.800, Neut % (Auto) 72.4 H, Lymph % (Auto) 9.5 L, [place] % (Auto) 14.2 H, Eos % (Auto) 2.3, Baso % (Auto) 0.8, Absolute Neuts (auto) 5.3, Absolute Lymphs (auto) 0.69 L, Nucleated RBC % 0, PT 16.4 H, INR 1.3, APTT 30.4 10/22/22 21:57: POC Glucose 141 H 10/23/22 04:16: APTT 48.1 H Physical Exam Narrative GENERAL: cooperative HEENT: Atraumatic; normocephalic EYES; Anicteric, Normal Conjunctiva NECK; supple, normal thyroid, RESPIRATORY: Diminished to auscultation CARDIOVASCULAR: Regular S1 S2, GI: soft, normoactive bowel sounds, : No Renal angle tenderness; EXTREMITIES: Lateral lower extremity stasis dermatitis MUSCULOSKELETAL: no muscle wasting NEURO: Awake; no lateralizing signs. SKIN: As described above PSYCH; Flat affect Assessment & Plan Assessment/Plan (1) Atrial fibrillation: PLAN: Plan Patient is a 66-year-old gentleman with multiple comorbidities admitted with chest discomfort 1. Chest discomfort ? Admitted to monitored bed, subsequent serial cardiac enzymes ordered. Given patient's significant past cardiac history ordered nuclear stress test to rule out ischemia ? 10/22/2022;Underwent nuclear stress test which demonstrated demonstrate reduced uptake of sestamibi in the inferior and post stress images demonstrate moderate reduced uptake in the anterior, lateral and inferior myocardium Consistent with reversible myocardial ischemia. Reduced tracer uptake in the inferior myocardium consistent with prior inferior SC. With inferior cisco-infarct ischemia and anterior and lateral reversible myocardial ischemia. Consult subsequently placed to cardiology ? 10/23/2022; plan is for patient to undergo left heart catheterization on 10/24/2022. On apixaban held started on heparin 2. Coronary artery disease ? With history of PCI LAD PTCA/DANIEL 2016 and OM1 PCI 10/2021, 3. Paroxysmal A-fib ? Controlled on systemic anticoagulation with apixaban ? 10/23/2022 apixaban held currently on heparin 4. Right olecranon bursitis ? Managed with anti-inflammatory medications as well as steroid and tramadol for pain plans for patient to follow-up with orthopedic surgeon Dr. Gary as outpatient 5. Hyperparathyroidism with history of hypercalcemia ? Patient is on Cinacalcet 6. Hypertension - Blood pressure controlled, home medications continued with dose adjustment as needed 7. Diabetes mellitus type II -patient's oral hypoglycemics held. Placed on long acting insulin, Accu-Cheks a.c. and at bedtime and covered with sliding scale insulin 8. Chronic kidney disease stage III ? Kidney function at baseline 9. Depression with anxiety ? Patient is on SSRI regimen?Paxil did continue 10. Dyslipidemia ? Patient is on fenofibrate 11. Class II obesity with BMI of 38 point ? Complicating care weight loss advised 12. Obstructive sleep apnea ? On CPAP at night 13. DVT prophylaxis ? On apixaban Time spent in the patient's overall evaluation,decision-making process, review of diagnostic data, adjustment of management, discussion with other providers, nursing nursing and ancillary staff involved in patient's care documentation, 35 minutes Charges/Coding Visit Charges Inpatient E&M: 05895 [facility] Hosp L2
[2022-10-23] MEDS: Insulin Lispro 100 UNIT/ML INSULN.PEN SC ×3 (08:01→16:19)
[2022-10-23] MEDS: Insulin Glargine-YFGN 100 UNIT/ML Pen 10 UNIT SC (08:02)
[2022-10-23] MEDS: Ferrous Sulfate 325 MG Tablet PO (08:02)
[2022-10-23] MEDS: Losartan Potassium 25 MG Tablet PO (08:03)
[2022-10-23] MEDS: Furosemide 40 MG/4 ML Vial IV ×2 (08:03→18:39)
[2022-10-23] MEDS: Insulin U-500 UNITS/ML PEN 30 UNITS SC ×3 (08:03→16:19)
[2022-10-23] MEDS: Ranolazine 500 MG Tablet PO ×2 (08:05→21:12)
[2022-10-23] MEDS: Clopidogrel Bisulfate 75 MG Tablet PO (08:05)
[2022-10-23] MEDS: Cinacalcet HCl 30 MG Tablet PO ×2 (08:05→21:13)
[2022-10-23] MEDS: Paroxetine 20 MG Tablet 40 MG PO (08:05)
[2022-10-23] MEDS: Metoprolol(XL)Succ 50 MG Tablet PO ×2 (08:06→21:13)
[2022-10-23] MEDS: Fenofibrate 145 MG Tablet PO (08:06)
[2022-10-23] MEDS: amLODIPine 10 MG Tablet PO (08:09)
[2022-10-23] MEDS: 0.9% Saline Lock 10 ML Syringe IV (08:10)
[2022-10-23 08:33] LABS: Bedside Glucose 183 mg/dL (74-106)
[2022-10-23 11:23] LABS: Bedside Glucose 154 mg/dL (74-106)
[2022-10-23 11:37] LABS: Partial Thromboplast Time 38.2 Seconds (24.1-36.2)
[2022-10-23] MEDS: HEPARIN/D5w 25,000 UNITS 25,000 UNITS/250 ML IV.SOLN. 19 UNITS CONT INF (12:48)
[2022-10-23] MEDS: traMADol 50 MG Tablet PO (16:16)
[2022-10-23 17:02] LABS: Bedside Glucose 156 mg/dL (74-106)
[2022-10-23 19:43] LABS: Partial Thromboplast Time 55.2 Seconds (24.1-36.2)
--- NOTE | 2022-10-23 20:46 | PCM.PN.CARD ---
Subjective Subjective No events from last night No symptoms reported today. Objective Data Vital Signs: Vital Signs Temp Pulse Resp BP Pulse Ox O2 Del Method O2 Flow Rate 98.0 F 78 18 133/95 H 92 Room Air 2 10/23/22 15:15 10/23/22 15:15 10/23/22 15:15 10/23/22 15:15 10/23/22 15:15 10/23/22 15:15 10/21/22 07:49 Oxygen Flow Rate (L/min) 2 Oxygen Delivery Method Room Air Weight: 257 lb 4.471 oz Body Mass Index (BMI) 36.9 Intake & Output: Intake and Output for Last 24 Hours 10/21/22 10/22/22 10/23/22 23:59 23:59 23:59 Intake Total 1800 / 1800 450 / 690 1503.35 / 1503.35 Output Total 1999 / 1999 1650 / 2450 1250 / 1250 Balance -200 / -200 -1200 / -1760 253.35 / 253.35 Lab / Micro Data 10/22/22 20:15 10/21/22 05:04 Labs: Laboratory Results - last 24 hr 10/22/22 20:15: WBC 7.3, RBC 4.45 L, Hgb 12.8 L, Hct 40.9, MCV 91.9, MCH 28.8, MCHC 31.3 L, RDW Std Deviation 45.8 H, RDW Coeff of Thao 13.4, Plt Count 415, MPV 9.6, Immature Gran % (Auto) 0.800, Neut % (Auto) 72.4 H, Lymph % (Auto) 9.5 L, [place] % (Auto) 14.2 H, Eos % (Auto) 2.3, Baso % (Auto) 0.8, Absolute Neuts (auto) 5.3, Absolute Lymphs (auto) 0.69 L, Nucleated RBC % 0, PT 16.4 H, INR 1.3, APTT 30.4 10/22/22 21:57: POC Glucose 141 H 10/23/22 04:16: APTT 48.1 H 10/23/22 08:01: POC Glucose 183 H 10/23/22 11:01: POC Glucose 154 H 10/23/22 11:15: APTT 38.2 H 10/23/22 16:07: POC Glucose 156 H 10/23/22 19:13: APTT 55.2 H Cardiology Labs/Tests 10/22/22 20:15: WBC 7.3, RBC 4.45 L, Hgb 12.8 L, Hct 40.9, MCV 91.9, MCH 28.8, MCHC 31.3 L, Plt Count 415, MPV 9.6, Immature Gran % (Auto) 0.800, Neut % (Auto) 72.4 H, Lymph % (Auto) 9.5 L, [place] % (Auto) 14.2 H, Eos % (Auto) 2.3, Baso % (Auto) 0.8, Absolute Neuts (auto) 5.3, Nucleated RBC % 0, PT 16.4 H, INR 1.3, APTT 30.4 10/23/22 04:16: APTT 48.1 H 10/23/22 11:15: APTT 38.2 H 10/23/22 19:13: APTT 55.2 H Rhythm: EKG: ECHO: Stress Test: Cardiac Cath: PCI: CT Surgery: Holter monitor: EPS: PPM: CXR: Chest CT Scan: Physical Exam Cardio Cardio Narrative: Cardiac exam S1-S2 regular Chest exam clear to auscultation bilateral Examination lower extremity lower extremity edema. Assessment & Plan Assessment/Plan (1) Atherosclerosis of coronary artery of [place] heart without angina pectoris: QUALIFIERS: Coronary Disease-Associated Artery/Lesion type: [place] artery Qualified Code(s): I25.10 - Atherosclerotic heart disease of [place] coronary artery without angina pectoris (2) Hypertriglyceridemia: (3) Diabetes: QUALIFIERS: Diabetes mellitus type: type 2 Diabetes mellitus fpc insulin use: with intermodal customer service use Diabetes mellitus complication status: with hyperglycemia Qualified Code(s): E11.65 - Type 2 diabetes mellitus with hyperglycemia; Z79.4 - bed bug exterminator (current) use of insulin (4) Hypercalcemia: PLAN: Plan 66-year-old patient With known history of CAD Had a PCI and stent of LAD in May 2016 And in October 2021 he had a PCI and stent of OM1 Also patient has paroxysmal atrial fibrillation has been on anticoagulation with apixaban which is on hold and currently patient is on heparin Hyperparathyroidism, hypertension Diabetes mellitus, chronic kidney disease stage III Dyslipidemia. And also had history of FAVIAN and has been on CPAP. His baseline creatinine is 1.68 Patient has symptoms of chest pain retrosternal Evaluated by nuclear stress test Which is abnormal Currently been on medical treatment stable clinically Cardiac care plan recommendations; Patient with Multiple medical comorbidities With CAD prior PCI stent of LAD and 6 circumflex/OM1 Presenting with symptoms of chest pain Abnormal nuclear stress test With evidence of reversible myocardial ischemia, anterior inferior and lateral Patient scheduled to undergo cardiac catheterization To minimize the use of contrast due to risk of contrast-induced nephropathy. Patient will be hydrated over the night with IV fluid We will repeat the BMP level in the morning. Patient will undergo cardiac catheterization by Dr. Alex
[2022-10-23] MEDS: Acetaminophen 325 MG Tablet 650 MG PO (21:11)
[2022-10-23 22:27] LABS: Bedside Glucose 142 mg/dL (74-106)
[2022-10-24] VITALS (7 sets, daily range): BP systolic 144–181; BP diastolic 91–107; PULSE 64–77; RESP 16–18; TEMP 36.1–36.9; O2SAT 93–96; BMI 37.0
[2022-10-24] MEDS: 0.9% Normal Saline 1,000 ML 75 ML IV ×2 (00:03→13:27)
[2022-10-24 01:42] LABS: Partial Thromboplast Time 54.9 Seconds (24.1-36.2)
[2022-10-24] MEDS: Heparin Injection (Vial) 5,000 UNIT/ML VIAL IV ×2 (01:53→21:23)
[2022-10-24] MEDS: HEPARIN/D5w 25,000 UNITS 25,000 UNITS/250 ML IV.SOLN. 20 UNITS CONT INF (02:17)
--- NOTE | 2022-10-24 05:55 | EKG12_ITS ---
Test Reason : PCI Blood Pressure : / mmHG Vent. Rate : 063 BPM Atrial Rate : 170 BPM P-R Int : 000 ms QRS Dur : 116 ms QT Int : 438 ms P-R-T Axes : 000 018 007 degrees QTc Int : 448 ms Atrial fibrillation Septal infarct , age undetermined Abnormal ECG When compared with ECG of 26-OCT-2022 05:51, MANUAL COMPARISON REQUIRED, DATA IS UNCONFIRMED Confirmed by BAILEE PIZANO, NII ([id number]), senior technical editor NAZ NORIEGA ([id number]) on 11/01/2022 7:12:19 AM Referred By: BAILEE Confirmed By:NII MOROCHO MD
[2022-10-24] MEDS: Potassium Chloride Oral Tablet 20 MEQ 40 MEQ PO ×3 (06:42→21:19)
[2022-10-24] MEDS: Clopidogrel Bisulfate 75 MG Tablet PO (06:42)
[2022-10-24] MEDS: Metoprolol(XL)Succ 50 MG Tablet PO ×2 (06:43→21:17)
[2022-10-24] MEDS: Losartan Potassium 25 MG Tablet PO (06:43)
[2022-10-24] MEDS: Ranolazine 500 MG Tablet PO ×2 (06:44→21:17)
[2022-10-24 07:06] LABS: Bedside Glucose 116 mg/dL (74-106)
[2022-10-24] MEDS: amLODIPine 10 MG Tablet PO (07:30)
[2022-10-24 08:03] LABS: Partial Thromboplast Time 62.1 Seconds (24.1-36.2)
--- NOTE | 2022-10-24 09:04 | CASEMGMT ---
Discharge Planning Updates sent to [facility] via [employer]. Asked to initiate pre-cert. Jennifer Stringer, Discharge Planning Asst.
[2022-10-24] MEDS: traMADol 50 MG Tablet PO ×2 (09:39→21:17)
[2022-10-24] MEDS: Paroxetine 20 MG Tablet 40 MG PO (09:40)
[2022-10-24] MEDS: Cinacalcet HCl 30 MG Tablet PO ×2 (09:40→21:19)
[2022-10-24] MEDS: Fenofibrate 145 MG Tablet PO (09:40)
[2022-10-24] MEDS: Ferrous Sulfate 325 MG Tablet PO (09:40)
[2022-10-24 10:06] LABS: Anion Gap 6 (5-15); BUN 36 mg/dL (7-18); BUN/Creat Ratio 19.8 RATIO (10-20); Calcium,Total 11.5 mg/dL (8.5-10.1); Chloride 106 mmol/L (98-107); Creatinine, Serum 1.82 mg/dL (0.70-1.30); EST Glomerular Filtration Rate 40 mL/min (>60); Est Glom Filt Rate - Afr Amer 48 mL/min (>60); Estimated Creatinine Clearance 41.78 ml/min; Glucose 119 mg/dL (74-106); Potassium 4.8 mmol/L (3.5-5.1); Sodium Level 135 mmol/L (136-145)
[2022-10-24] MEDS: Furosemide 40 MG Tablet PO ×2 (11:29→18:33)
[2022-10-24 12:00] LABS: Bedside Glucose 121 mg/dL (74-106)
[2022-10-24 12:53] LABS: Bedside Glucose 115 mg/dL (74-106)
[2022-10-24] MEDS: HEPARIN/D5w 25,000 UNITS 25,000 UNITS/250 ML IV.SOLN. 16 UNITS CONT INF (13:32)
[2022-10-24] MEDS: Nystatin Powder 15gm Bottle 1 APPLIC TOPICAL ×2 (13:37→21:18)
--- NOTE | 2022-10-24 13:40 | PCM.PN.HOSP ---
Reason for Visit Reason for Visit: Diagnoses Type 2 diabetes mellitus with hyperglycemia (10/21/22) Pure hyperglyceridemia (10/21/22) Hypercalcemia (10/21/22) Atherosclerotic heart disease of [place] coronary artery without angina pectoris (10/21/22) Unspecified atrial fibrillation (10/21/22) Other chest pain (10/21/22) intermission coordinator (current) use of insulin (10/21/22) Presence of coronary angioplasty implant and graft (10/21/22) Subjective Subjective Patient not having pain at present, does feel legs are somewhat swollen, advised to elevate Objective Data Objective Data Vital Signs: Vital Signs Temp Pulse Resp BP Pulse Ox O2 Del Method O2 Flow Rate 97.0 F L 73 16 146/97 H 95 Room Air 2 10/24/22 08:21 10/24/22 08:21 10/24/22 08:21 10/24/22 08:21 10/24/22 08:21 10/24/22 08:28 10/21/22 07:49 Oxygen Flow Rate (L/min) 2 Oxygen Delivery Method Room Air Weight: 117 kg Body Mass Index (BMI) 37.0 Intake & Output: Intake and Output for Last 24 Hours 10/22/22 10/23/22 10/24/22 23:59 23:59 23:59 Intake Total 450 / 690 1656.62 / 1896.62 1474.06 / 1474.06 Output Total 1650 / 2450 1250 / 1850 1650 / 1650 Balance -1200 / -1760 406.62 / 46.62 -175.94 / -175.94 Lab / Micro Data 10/22/22 20:15 10/24/22 09:20 Labs: Laboratory Results - last 24 hr 10/23/22 16:07: POC Glucose 156 H 10/23/22 19:13: APTT 55.2 H 10/23/22 21:10: POC Glucose 142 H 10/24/22 01:26: APTT 54.9 H 10/24/22 06:47: POC Glucose 116 H 10/24/22 07:43: APTT 62.1 H 10/24/22 09:20: Sodium 135 L, Potassium 4.8, Chloride 106, Carbon Dioxide 23.0, Anion Gap 6, BUN 36 H, Creatinine 1.82 H, Estim Creat Clear Calc 41.78, Est GFR (MDRD) Af Amer 48 L, Est GFR (MDRD) Non-Af 40 L, BUN/Creatinine Ratio 19.8, Glucose 119 H, Calcium 11.5 H 10/24/22 11:25: POC Glucose 115 H 10/24/22 11:40: POC Glucose 121 H Physical Exam Narrative General: Alert, oriented, no apparent distress HEENT: Atraumatic, normocephalic Eyes: Anicteric, normal conjunctiva, extraocular movements grossly intact Neck: Supple Respiratory: normal respiratory effort Cardiovascular: Regular rate GI: Soft, nontender, nondistended Extremities: 1+ lower extremity edema Musculoskeletal: Moving all extremities Neuro: No overt focal neurological deficits Skin: No rashes appreciated Psych: Cooperative Assessment & Plan Assessment/Plan (1) Atherosclerosis of coronary artery of [place] heart without angina pectoris: QUALIFIERS: Coronary Disease-Associated Artery/Lesion type: [place] artery Qualified Code(s): I25.10 - Atherosclerotic heart disease of [place] coronary artery without angina pectoris (2) Hypertriglyceridemia: (3) Diabetes: QUALIFIERS: Diabetes mellitus type: type 2 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 insulin use: with petroleum terminal plant operator use Diabetes mellitus complication status: with hyperglycemia Qualified Code(s): E11.65 - Type 2 diabetes mellitus with hyperglycemia; Z79.4 - intermission coordinator (current) use of insulin (4) Hypercalcemia: PLAN: Plan #Chest discomfort -With known history of coronary artery disease with PCI and stenting of LAD in May 2016 and stent of OM1 in October 2021 -Patient presently chest pain-free but did have abnormal nuclear stress test, ideally will undergo cardiac cath before discharge but can be scheduled on a close outpatient basis if this is not feasible -Continue heparin drip, patient will require chronic anticoagulation with atrial fibrillation, will switch to oral AC pending Decision -cont plavix -Echo with EF of 55 to 60% with normal LV systolic function and moderate MR, no comment on diastolic dysfunction #History of coronary artery disease -With known history of coronary artery disease with PCI and stenting of LAD in May 2016 and stent of OM1 in October 2021 -Cont ranexa, BB, fenofibrate #CKD stage IIIb -Slightly up from baseline, holding Lasix, gentle hydration after midnight in the event patient has heart cath, does not presently have CLARA but given bump in creatinine and pending heart cath will hold losartan #pafib -Convert to oral AC once heart cath decision -Continue BB #Type 2 diabetes mellitus -Glucose checks and sliding scale insulin -Continue glargine and Humulin but glucose is under tighter control the necessary while hospitalized especially given intermittent n.p.o. status will decrease glargine and insulin U-500 -Most recent A1c 6.4 on 09/06/2022 #Hyperparathyroidism with hypercalcemia -Calcium 11.5 today, continue Cinacalcet -We will check PTH, vitamin D, Phos in the a.m. #Right olecranon bursitis ? Managed with anti-inflammatory medications as well as steroid and tramadol for pain plans for patient to follow-up with orthopedic surgeon Dr. Gary as outpatient #Anxiety and depression -Continue Paxil #FAVIAN -CPAP nightly #DVT ppx: On heparin eun Velez MD Time spent in the patient's overall evaluation,decision-making process, review of diagnostic data, adjustment of management, discussion with other providers, nursing nursing and ancillary staff involved in patient's care documentation, 51 minutes Charges/Coding Visit Charges Inpatient E&M: 16853 Subs Hosp L3
[2022-10-24 13:46] LABS: Partial Thromboplast Time 28.4 Seconds (24.1-36.2)
--- NOTE | 2022-10-24 14:58 | CASEMGMT ---
[facility] received authorization for patient. Dipika FANG
--- NOTE | 2022-10-24 15:25 | CHAPLAIN ---
Type of Pastoral Visit _x__ Initial Visit ___ Follow-up Visit ___ On-call Visit ___ General Patient Visit ___ Spiritual Assessment ___ Family Conference ___ Bereavement ___ Rapid Response ___ Code Blue ___ Other (describe below) Pastoral Care Referral From _x__ Patient ___ Family ___ Nurse ___ Physician ___ Computer Hardware Developer ___ Cleat Thrower ___ Other (describe below) Sacrament/Intervention _x__ Active listening ___ Anointing ___ Moravian ___ Bereavement ___ Communion ___ Michelle exploration ___ _x__ Life review _x__ Prayer ___ Reconciliation ___ Sacrament of Sick _x__ Supportive presence ___ Wedding ___ Other (describe below) Pastoral Comments patient appears disheveled but welcoming; pt states that his procedure was cancelled for today due to illness of doctor; pt is willing to wait and describes his living situation and level of support; pt recently went to an ECF but this is not what he hoped for and wants to have other options made possible; pt has very limited family and they have stopped helping me with groceries, etc.; pt states that he often goes for days without talking to another and has a desire to be more social; pt reviews his health concerns too; pt is given opportunity to discuss his ideas on coping; pt is affirmed with words of hope and care; pt is not connected to a michelle community; pt does welcome prayer support
[2022-10-24 17:05] LABS: Bedside Glucose 176 mg/dL (74-106)
[2022-10-24] MEDS: Insulin Lispro 100 UNIT/ML INSULN.PEN SC ×2 (18:32→21:29)
[2022-10-24] MEDS: Insulin U-500 UNITS/ML PEN 10 UNITS SC (18:33)
[2022-10-24 18:57] LABS: Bedside Glucose 235 mg/dL (74-106)
[2022-10-24 20:39] LABS: Partial Thromboplast Time 40.8 Seconds (24.1-36.2)
[2022-10-24] MEDS: MELATONIN 3 MG TABLET PO (21:18)
--- NOTE | 2022-10-24 22:40 | CPS ---
Pt refused BiPAP for tonight.
[2022-10-24 23:13] LABS: Bedside Glucose 217 mg/dL (74-106)
[2022-10-25] VITALS (8 sets, daily range): BP systolic 147–155; BP diastolic 84–98; PULSE 60–83; RESP 17–18; TEMP 36.4–36.9; O2SAT 95–98; BMI 37.0
[2022-10-25] MEDS: 0.9% Normal Saline 1,000 ML 75 ML IV (00:25)
[2022-10-25 02:13] LABS: Partial Thromboplast Time 52.6 Seconds (24.1-36.2)
[2022-10-25] MEDS: Heparin Injection (Vial) 5,000 UNIT/ML VIAL IV ×2 (02:51→11:12)
--- NOTE | 2022-10-25 05:55 | EKG12_ITS ---
Test Reason : AM EKG Blood Pressure : / mmHG Vent. Rate : 063 BPM Atrial Rate : 117 BPM P-R Int : 000 ms QRS Dur : 116 ms QT Int : 436 ms P-R-T Axes : 000 006 028 degrees QTc Int : 446 ms Atrial fibrillation Abnormal ECG When compared with ECG of 24-OCT-2022 05:03, MANUAL COMPARISON REQUIRED, DATA IS UNCONFIRMED Confirmed by BAILEE PIZANO, NII ([id number]), online editor NAZ NORIEGA ([id number]) on 11/01/2022 7:21:05 AM Referred By: HAIM Confirmed By:NII MOROCHO MD
[2022-10-25] MEDS: HEPARIN/D5w 25,000 UNITS 25,000 UNITS/250 ML IV.SOLN. 19 UNITS CONT INF (06:27)
[2022-10-25] MEDS: Metoprolol(XL)Succ 50 MG Tablet PO (06:33)
[2022-10-25] MEDS: amLODIPine 10 MG Tablet PO (06:33)
[2022-10-25] MEDS: Potassium Chloride Oral Tablet 20 MEQ 40 MEQ PO (06:33)
[2022-10-25] MEDS: Clopidogrel Bisulfate 75 MG Tablet PO (06:33)
[2022-10-25 07:17] LABS: Bedside Glucose 139 mg/dL (74-106)
[2022-10-25] MEDS: traMADol 50 MG Tablet PO ×3 (08:10→22:05)
[2022-10-25 09:23] LABS: Absolute Lymphocyte Count 0.64 X10^3/uL (0.83-4.51); Absolute Neutrophil Count 5.5 X10^3/uL (2.0-7.7); Basophil# 0.05 X10^3/uL; Basophil% 0.7 % (0-1); Eosinophil# 0.17 X10^3/uL; Eosinophils% 2.3 % (0-5); Hematocrit 41.5 % (40-54); Hemoglobin 12.9 g/dL (13.0-16.5); Lymphocyte # 0.64 X10^3/ul (0.83-4.51); Lymphocyte % 8.6 % (19-41); Mean Corp Hgb Conc 31.1 g/dL (32-36); Mean Corpuscular Hgb 28.9 pg (27.0-32.0); Mean Platelet Vol. 9.3 fl (6.2-12.0); Monocyte# 1.04 X10^3/uL; NRBC Flagged by Analyzer 0 % (0-5); Neutrophil # 5.48 X10^3/uL (2.7-7.7); Neutrophil % 73.5 % (47-70); Platelet Count 415 K/mm3 (150-450); RBC Distribution Width CV 13.8 % (11.6-14.6); RBC Distribution Width SD 47.1 fl (35.1-43.9); Red Blood Count 4.46 M/mm3 (4.6-6.2); White Blood Count 7.5 K/mm3 (4.4-11.0)
[2022-10-25 09:44] LABS: Partial Thromboplast Time 34.4 Seconds (24.1-36.2)
[2022-10-25 09:55] LABS: PTHIN 197.7 pg/mL (18.4-80.1)
[2022-10-25 09:58] LABS: Vitamin D,25 Hydroxy 87.9 ng/mL
[2022-10-25 10:02] LABS: Anion Gap 3 (5-15); BUN 32 mg/dL (7-18); BUN/Creat Ratio 18.2 RATIO (10-20); Calcium,Total 11.1 mg/dL (8.5-10.1); Chloride 108 mmol/L (98-107); Creatinine, Serum 1.76 mg/dL (0.70-1.30); EST Glomerular Filtration Rate 41 mL/min (>60); Est Glom Filt Rate - Afr Amer 50 mL/min (>60); Estimated Creatinine Clearance 43.21 ml/min; Glucose 152 mg/dL (74-106); Magnesium 2.3 mg/dL (1.6-2.6); Potassium 4.7 mmol/L (3.5-5.1); Sodium Level 137 mmol/L (136-145)
[2022-10-25 10:04] LABS: Phosphorus 2.6 mg/dL (2.5-4.9)
[2022-10-25] MEDS: Ranolazine 500 MG Tablet PO ×2 (11:18→22:03)
[2022-10-25] MEDS: Ferrous Sulfate 325 MG Tablet PO (11:18)
[2022-10-25] MEDS: Cinacalcet HCl 30 MG Tablet PO ×2 (11:18→22:04)
[2022-10-25] MEDS: Fenofibrate 145 MG Tablet PO (11:18)
[2022-10-25] MEDS: Paroxetine 20 MG Tablet 40 MG PO (11:18)
[2022-10-25] MEDS: Insulin Lispro 100 UNIT/ML INSULN.PEN SC ×3 (11:26→22:01)
[2022-10-25] MEDS: Insulin Glargine-YFGN 100 UNIT/ML Pen 7 UNIT SC (11:27)
[2022-10-25] MEDS: Insulin U-500 UNITS/ML PEN 10 UNITS SC ×2 (11:30→17:37)
[2022-10-25 11:44] LABS: Bedside Glucose 152 mg/dL (74-106)
[2022-10-25] MEDS: 0.9% Saline Lock 10 ML Syringe IV (11:54)
--- NOTE | 2022-10-25 11:55 | PN.HOSP_ITS ---
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 (10/21/22) Presence of coronary angioplasty implant and graft (10/21/22) Subjective Subjective Denies CP or SOB Objective Data Objective Data Vital Signs: Vital Signs Temp Pulse Resp BP Pulse Ox O2 Del Method O2 Flow Rate 97.8 F 66 17 149/90 H 98 Room Air 2 10/25/22 03:10 10/25/22 06:33 10/25/22 03:10 10/25/22 06:33 10/25/22 08:00 10/25/22 08:11 10/25/22 03:10 Oxygen Flow Rate (L/min) 2 Oxygen Delivery Method Room Air Weight: 117.2 kg Body Mass Index (BMI) 37.0 Intake & Output: Intake and Output for Last 24 Hours 10/23/22 10/24/22 10/25/22 23:59 23:59 23:59 Intake Total 1656.62 / 1896.62 2415.11 / 2415.11 235.77 / 235.77 Output Total 1250 / 1850 2860 / 2860 450 / 450 Balance 406.62 / 46.62 -444.89 / -444.89 -214.23 / -214.23 Lab / Micro Data 10/25/22 08:50 10/25/22 08:50 Labs: Laboratory Results - last 24 hr 10/24/22 11:25: POC Glucose 115 H 10/24/22 11:40: POC Glucose 121 H 10/24/22 13:24: APTT 28.4 10/24/22 16:46: POC Glucose 176 H 10/24/22 18:31: POC Glucose 235 H 10/24/22 19:55: APTT 40.8 H 10/24/22 21:28: POC Glucose 217 H 10/25/22 01:56: APTT 52.6 H 10/25/22 06:27: POC Glucose 139 H 10/25/22 08:50: WBC 7.5, RBC 4.46 L, Hgb 12.9 L, Hct 41.5, MCV 93.0, MCH 28.9, MCHC 31.1 L, RDW Std Deviation 47.1 H, RDW Coeff of Thao 13.8, Plt Count 415, MPV 9.3, Immature Gran % (Auto) 0.900, Neut % (Auto) 73.5 H, Lymph % (Auto) 8.6 L, [place] % (Auto) 14.0 H, Eos % (Auto) 2.3, Baso % (Auto) 0.7, Absolute Neuts (auto) 5.5, Absolute Lymphs (auto) 0.64 L, Nucleated RBC % 0, APTT 34.4, Sodium 137, Potassium 4.7, Chloride 108 H, Carbon Dioxide 26.0, Anion Gap 3 L, BUN 32 H, Creatinine 1.76 H, Estim Creat Clear Calc 43.21, Est GFR (MDRD) Af Amer 50 L, Est GFR (MDRD) Non-Af 41 L, BUN/Creatinine Ratio 18.2, Glucose 152 H, Calcium 11.1 H, Phosphorus 2.6, Magnesium 2.3, Vitamin D 25-Hydroxy 87.9, PTH Intact 197.7 H 10/25/22 11:23: POC Glucose 152 H Physical Exam Narrative General: Alert, oriented, no apparent distress HEENT: Atraumatic, normocephalic Eyes: Anicteric, normal conjunctiva, extraocular movements grossly intact Neck: Supple Respiratory: normal respiratory effort Cardiovascular: Regular rate GI: Soft, nontender, nondistended Extremities: 1+ lower extremity edema Musculoskeletal: Moving all extremities Neuro: No overt focal neurological deficits Skin: No rashes appreciated Psych: Cooperative Assessment & Plan Assessment/Plan (1) Atherosclerosis of coronary artery of [place] heart without angina pectoris: QUALIFIERS: Coronary Disease-Associated Artery/Lesion type: [place] artery Qualified Code(s): I25.10 - Atherosclerotic heart disease of [place] coronary artery without angina pectoris (2) Hypertriglyceridemia: (3) Diabetes: QUALIFIERS: Diabetes mellitus type: type 2 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: with ferry terminal supervisor use Diabetes mellitus complication status: with hyperglycemia Qualified Code(s): E11.65 - Type 2 diabetes mellitus with hy perglycemia; Z79.4 - exterminator helper termite (current) use of insulin (4) Hypercalcemia: PLAN: Plan #Chest discomfort -With known history of coronary artery disease with PCI and stenting of LAD in May 2016 and stent of OM1 in October 2021 -Patient presently chest pain-free but did have abnormal nuclear stress test, ideally will undergo cardiac cath before discharge but can be scheduled on a close outpatient basis if this is not feasible -Continue heparin drip, patient will require chronic anticoagulation with atrial fibrillation, will switch to oral AC pending Decision -cont plavix -Echo with EF of 55 to 60% with normal LV systolic function and moderate MR, no comment on diastolic dysfunction -10/25: Discussed with cardiology, heart cath tomorrow. Lasix held with kidney function and impending cath and patient have received some gentle hydration #History of coronary artery disease -With known history of coronary artery disease with PCI and stenting of LAD in May 2016 and stent of OM1 in October 2021 -Cont ranexa, BB, fenofibrate -10/25: Decrease beta-robinson due to intermittently low heart rates #CKD stage IIIb -Slightly up from baseline, holding Lasix, gentle hydration after midnight in the event patient has heart cath, does not presently have CLARA but given bump in creatinine and pending heart cath will hold losartan -10/25: Improved slightly same #pafib -Convert to oral AC once heart cath decision -Continue BB -10/25: Remains on heparin drip with heart cath pending, beta-robinson decreased due to low heart rates #Type 2 diabetes mellitus -Glucose checks and sliding scale insulin -Continue glargine and Humulin but glucose is under tighter control the necessary while hospitalized especially given intermittent n.p.o. status will decrease glargine and insulin U-500 -Most recent A1c 6.4 on 09/06/2022 #Hyperparathyroidism with hypercalcemia -Calcium 11.5 today, continue Cinacalcet -We will check PTH, vitamin D, Phos in the a.m. -10/25: 11.1 after some gentle hydration, PTH 197, vitamin D is 87.9 with a Phos of 2.6, continue Cinacalcet #Right olecranon bursitis ? Managed with anti-inflammatory medications as well as steroid and tramadol for pain plans for patient to follow-up with orthopedic surgeon Dr. Gary as outpatient #Anxiety and depression -Continue Paxil #FAVIAN -CPAP nightly #DVT ppx: On heparin drip Kassidy Velez MD Time spent in the patient's overall evaluation,decision-making process, review of diagnostic data, adjustment of management, discussion with other providers, nursing nursing and ancillary staff involved in patient's care documentation, 51 minutes Charges/Coding Visit Charges Inpatient E&M: 47521 Subs Hosp L3
[2022-10-25] MEDS: Nystatin Powder 15gm Bottle 1 APPLIC TOPICAL (15:48)
[2022-10-25 16:47] LABS: Bedside Glucose 167 mg/dL (74-106)
[2022-10-25 18:18] LABS: Partial Thromboplast Time 66.7 Seconds (24.1-36.2)
[2022-10-25] MEDS: HEPARIN/D5w 25,000 UNITS 25,000 UNITS/250 ML IV.SOLN. 21 UNITS CONT INF (19:06)
[2022-10-25] MEDS: Metoprolol(XL)Succ 25 MG Tablet PO (22:04)
[2022-10-25 22:30] LABS: Bedside Glucose 151 mg/dL (74-106)
[2022-10-26] VITALS (19 sets, daily range): BP systolic 113–172; BP diastolic 67–134; PULSE 58–83; RESP 14–24; TEMP 36.1–37.1; O2SAT 92–100; BMI 37.3
[2022-10-26 00:46] LABS: Partial Thromboplast Time 52.6 Seconds (24.1-36.2)
[2022-10-26] MEDS: Heparin Injection (Vial) 5,000 UNIT/ML VIAL IV (00:54)
[2022-10-26] MEDS: hydrALAZINE 20 MG/ML Vial 10 MG IV (03:57)
[2022-10-26] MEDS: 0.9% Saline Lock 10 ML Syringe IV (03:58)
--- NOTE | 2022-10-26 05:55 | EKG12_ITS ---
Test Reason : AM EKG Blood Pressure : / mmHG Vent. Rate : 070 BPM Atrial Rate : 077 BPM P-R Int : 000 ms QRS Dur : 112 ms QT Int : 402 ms P-R-T Axes : 000 006 -10 degrees QTc Int : 434 ms Atrial fibrillation Septal infarct , age undetermined Abnormal ECG When compared with ECG of 25-OCT-2022 05:31, MANUAL COMPARISON REQUIRED, DATA IS UNCONFIRMED Confirmed by BAILEE PIZANO, NII ([id number]), belt lacer NAZ NORIEGA ([id number]) on 11/01/2022 7:12:40 AM Referred By: HAIM Confirmed By:NII MOROCHO MD
[2022-10-26] MEDS: Clopidogrel Bisulfate 75 MG Tablet PO (06:22)
[2022-10-26] MEDS: Metoprolol(XL)Succ 25 MG Tablet PO ×2 (06:22→21:27)
[2022-10-26] MEDS: amLODIPine 10 MG Tablet PO (06:22)
[2022-10-26] MEDS: HEPARIN/D5w 25,000 UNITS 25,000 UNITS/250 ML IV.SOLN. 22 UNITS CONT INF (06:23)
[2022-10-26] MEDS: Nystatin Powder 15gm Bottle 1 APPLIC TOPICAL ×3 (06:25→21:25)
[2022-10-26] MEDS: traMADol 50 MG Tablet PO ×2 (06:34→16:30)
[2022-10-26 06:42] LABS: Absolute Lymphocyte Count 0.71 X10^3/uL (0.83-4.51); Absolute Neutrophil Count 5.4 X10^3/uL (2.0-7.7); Basophil# 0.07 X10^3/uL; Eosinophil# 0.14 X10^3/uL; Eosinophils% 1.9 % (0-5); Hematocrit 39.8 % (40-54); Hemoglobin 12.6 g/dL (13.0-16.5); Lymphocyte # 0.71 X10^3/ul (0.83-4.51); Lymphocyte % 9.7 % (19-41); Mean Corp Hgb Conc 31.7 g/dL (32-36); Mean Corpuscular Hgb 28.9 pg (27.0-32.0); Mean Corpuscular Volume 91.3 fL (80-94); Mean Platelet Vol. 8.9 fl (6.2-12.0); Monocyte# 0.94 X10^3/uL; Monocyte% 12.8 % (0-10); NRBC Flagged by Analyzer 0 % (0-5); Neutrophil # 5.39 X10^3/uL (2.7-7.7); Neutrophil % 73.4 % (47-70); Platelet Count 361 K/mm3 (150-450); RBC Distribution Width CV 13.7 % (11.6-14.6); RBC Distribution Width SD 46.5 fl (35.1-43.9); Red Blood Count 4.36 M/mm3 (4.6-6.2); White Blood Count 7.3 K/mm3 (4.4-11.0)
[2022-10-26 06:53] LABS: Partial Thromboplast Time 84.3 Seconds (24.1-36.2)
[2022-10-26 06:53] LABS: Bedside Glucose 103 mg/dL (74-106)
[2022-10-26 07:11] LABS: Anion Gap 5 (5-15); BUN 30 mg/dL (7-18); BUN/Creat Ratio 16.9 RATIO (10-20); Calcium,Total 10.9 mg/dL (8.5-10.1); Chloride 106 mmol/L (98-107); Creatinine, Serum 1.77 mg/dL (0.70-1.30); EST Glomerular Filtration Rate 41 mL/min (>60); Est Glom Filt Rate - Afr Amer 50 mL/min (>60); Estimated Creatinine Clearance 42.96 ml/min; Glucose 115 mg/dL (74-106); Potassium 4.1 mmol/L (3.5-5.1); Sodium Level 137 mmol/L (136-145)
[2022-10-26 09:33] LABS: Bedside Glucose 116 mg/dL (74-106)
--- NOTE | 2022-10-26 11:00 | EKG12_ITS ---
Test Reason : AM EKG Blood Pressure : / mmHG Vent. Rate : 069 BPM Atrial Rate : 288 BPM P-R Int : 000 ms QRS Dur : 146 ms QT Int : 440 ms P-R-T Axes : -85 245 038 degrees QTc Int : 471 ms Atrial flutter Indeterminate axis Right bundle branch block Abnormal ECG When compared with ECG of 21-OCT-2022 02:58, MANUAL COMPARISON REQUIRED, DATA IS UNCONFIRMED Confirmed by BAILEE PIZANO, NII ([id number]), editor map NAZ NORIEGA ([id number]) on 11/01/2022 7:14:02 AM Referred By: HAIM Confirmed By:NII MOROCHO MD
--- NOTE | 2022-10-26 11:16 | CL.I_ITS ---
Patient Name: ELIANE KAY Study Date: 10/26/2022 Performing: Chema Alex MD Ht: 70 inches 177.8 cm : 1955 Wt: 260.59 lbs 118.2 kg Age: 66 Gender: male BSA: 2.34 PROCEDURE(S) PERFORMED DC02-([id number])LHC/COR IC12-([id number])DANIEL W/WO PTCA, SINGLE CORONARY ARTERY IC12-([id number])DANIEL W/WO PTCA, SINGLE CORONARY ARTERY IC13-([id number])DANIEL W/WO PTCA, EACH ADD'L ART, SAME MAJOR CLINICAL PROFILE AND CO-MORBIDITIES Indications: New Onset Angina <= 2 months Heart Failure: None Stress/Imaging Stress Test w/SPECT MPI: Yes Result: Positive Intermediate Risk Stress Test with SPECT MPI: Positive Intermediate Risk CAD Presentations: Unstable angina. CONCLUSIONS 80% prox LAD 70% Mid OM1 80% Prox OM2 Successful DANIEL Mid OM1 using Resolute [place]rape[place] 2.5x15 mm, post-dilated using 2.75 mm balloon Successful DANIEL Prox OM2 using Resolute Gustavo 2.25x18 mm, post-dilated using 2.5 mm balloon Successful DANIEL Prox LAD using Resolute Gustavo 3.5x12 mm, post-dilated using 4.0 mm balloon RECOMMENDATIONS Plavix for at least 12 months Eliquis for patient's A.Fib DESCRIPTION OF PROCEDURE The patient arrived to the procedure lab. The risks and benefits of the procedure as well as a full description of our services here and lack of surgical backup were fully explained to the patient and/or their significant other prior to the catheterization. The Timeout was completed, verifying the correct patient and procedure. The patient's procedural site was prepped and draped in the usual fashion. Local anesthetic was given subcutaneously to right radial region with Lidocaine 2%. Using a modified Seldinger technique, arterial access was obtained via the right radial artery, a 6Fr sheath was inserted.. Left Coronary Artery selective angiography was performed in multiple views using a 5 Fr. 4.0 [place] catheter. Right Coronary Artery selective angiography was then performed in multiple views using a 5 Fr. 4.0 [place] catheterThe images were reviewed and options discussed. A decision was then made to proceed with an Intervention, IVUS or other adjunct procedure. XB 3 Guide catheter was inserted and engaged into the LCA. Runthrough Guide wire was advanced to the 1st OM. 2.5x15 Resolute Drug Eluting stent was inserted. Drug Eluting stent was advanced across the lesion in the first obtuse marginal, mid. 2.75x15 NC Emerge Balloon catheter was inserted. Balloon catheter was inserted post stent. Balloon catheter was advanced across lesion in the first obtuse marginal, mid. Angiogram performed post stent deployment. Guide wire was repositioned to the 2nd OM 2.25x18 Resolute Drug Eluting stent was inserted. Drug Eluting stent was advanced across the lesion in the second obtuse marginal, mid Angiogram performed post stent deployment. 2.5x15 NC Euphora Balloon catheter was inserted. Balloon catheter was inserted post stent. Balloon catheter was advanced across lesion in the second obtuse marginal, mid Angiogram performed post balloon dilatation. Guide wire was repositioned to the LAD 3.5x12 Resolute Drug Eluting stent was inserted. Drug Eluting stent was advanced across the lesion in the LAD, proximal. Angiogram performed post stent deployment. 4x8 NC Euphora Balloon catheter was inserted. Balloon catheter was inserted post stent. Balloon catheter was advanced across lesion in the LAD, proximal. Angiogram performed post balloon dilatation. The arterial sheath was pulled and a TR Band was applied for hemostasis. 12cc of air CORONARY ANGIOGRAPHY DOMINANCE: Right Dominant LEFT ANTERIOR DESCENDING ARTERY: LAD: In-Stent Restenosis 20% Mid lesion in LAD Tubular 80% Proximal lesion in LAD OM 1: Tubular 70% Mid lesion in 1st OM OM 2: Tubular 80% Proximal lesion in 2nd OM RIGHT CORONARY ARTERY: RCA: Tubular 50% Distal lesion in RCA Tubular 30% Proximal lesion in RCA INTERVENTION INFORMATION LESION SITE: 1st OM (Mid) Lesion Complexity: Non-High/Non-C Pre Stenosis: 70 % Pre intervention VERONICA flow: 3 PROCEDURE: Drug Eluting Stent with post dilatation Post Stenosis: 0 % Post intervention VERONICA flow: 3 Lesion Devices: Cordis 6 Fr XB3.0 100cm Guide Catheter Terumo .014 180cm Runthrough Extra Floppy straight Medtronic Resolute Gustavo RX DANIEL 2.5x15 Klaus Sci NC EMERGE MR 2.75x15 BALLOON LESION SITE: 2nd OM (Mid) Lesion Complexity: Non-High/Non-C Pre intervention VERONICA flow: 3 PROCEDURE: Drug Eluting Stent with post dilatation Post Stenosis: 0 % Post intervention VERONICA flow: 3 Lesion Devices: Cordis 6 Fr XB3.0 100cm Guide Catheter Terumo .014 180cm Runthrough Extra Floppy straight Medtronic Resolute Gustavo RX DANIEL 2.25x18 Medtronic NC EUPHORA RX 2.5x15 BALLOON LESION SITE: LAD (Proximal) Lesion Complexity: Non-High/Non-C Pre intervention VERONICA flow: 3 PROCEDURE: Drug Eluting Stent with post dilatation 0 % Post intervention VERONICA flow: 3 Lesion Devices: Cordis 6 Fr XB3.0 100cm Guide Catheter Terumo .014 180cm Runthrough Extra Floppy straight Medtronic Resolute Grapevine RX DANIEL 3.5x12 Medtronic NC EUPHORA RX 4.0x08 BALLOON COMPLICATIONS No Complications PROCEDURE MEDICATIONS Fentanyl 50 mcg IV Versed 1 mg IV Fentanyl 25 mcg IV Oxygen: 2 L/min via nasal cannula Aspirin (325mg) 1 Tabs PO @ 10/26/2022 09:42:08 Heparin given IA 10/26/2022 10:04:45 Heparin 8000 unit(s) IV 10/26/2022 10:17:58 Heparin 2000 unit(s) IV 10/26/2022 10:41:44 Nitro 200 mcg IC 10/26/2022 10:29:14 Nitro 200 mcg IC 10/26/2022 10:29:14 Verapamil 2.5mg, Ntg 200mcgs, 2000 units of Heparin given IA 10/26/2022 10:04:45 SUMMARY OF HEMODYNAMIC DATA Time AIR REST AO 121/70 (86) SA 10:10:06 AO 149/87 (113) 10:38:36 ECG 11:07:49 11:07:49 Signed By Chema Alex MD On 10/26/2022 11:16:14 Chema Alex MD
--- NOTE | 2022-10-26 11:52 | CASEMGMT ---
Discharge Planning Notified [facility] that patient is not ready for discharge. Since pre-cert expires today, asked for them to submit for a new one. Jennifer Stringer, Discharge Planning Asst.
[2022-10-26] MEDS: Paroxetine 20 MG Tablet 40 MG PO (11:55)
[2022-10-26] MEDS: Fenofibrate 145 MG Tablet PO (11:56)
[2022-10-26] MEDS: Cinacalcet HCl 30 MG Tablet PO ×2 (11:56→21:26)
[2022-10-26 12:09] LABS: ACT Activated Clotting Time 275 sec (74-137)
[2022-10-26 12:10] LABS: ACT Activated Clotting Time 251 sec (74-137)
--- NOTE | 2022-10-26 12:10 | CASEMGMT ---
Discharge Planning [facility] will need to cancel and restart pre-cert. Requested updates sent via [employer]. Jennifer Stirnger, Discharge Planning Asst.
[2022-10-26 12:21] LABS: Bedside Glucose 100 mg/dL (74-106)
[2022-10-26] MEDS: 0.9% Normal Saline 1,000 ML 150 ML IV (12:45)
[2022-10-26 13:28] LABS: Partial Thromboplast Time 139.1 Seconds (24.1-36.2)
--- NOTE | 2022-10-26 13:32 | PCM.PN.HOSP ---
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 No acute complaints Objective Data Objective Data Vital Signs: Vital Signs Temp Pulse Resp BP Pulse Ox O2 Del Method O2 Flow Rate 98.1 F 70 24 H 136/79 H 94 Room Air 2 10/26/22 13:18 10/26/22 13:18 10/26/22 13:18 10/26/22 13:18 10/26/22 13:18 10/26/22 13:18 10/26/22 06:19 Oxygen Flow Rate (L/min) 2 Oxygen Delivery Method Room Air Weight: 118.2 kg Body Mass Index (BMI) 37.3 Intake & Output: Intake and Output for Last 24 Hours 10/24/22 10/25/22 10/26/22 23:59 23:59 23:59 Intake Total 2415.11 / 2415.11 1943.95 / 1943.95 408.54 / 408.54 Output Total 2860 / 2860 1475 / 1475 900 / 900 Balance -444.89 / -444.89 468.95 / 468.95 -491.46 / -491.46 Lab / Micro Data 10/26/22 06:34 10/26/22 06:34 Labs: Laboratory Results - last 24 hr 10/25/22 16:14: POC Glucose 167 H 10/25/22 17:30: APTT 66.7 H 10/25/22 21:58: POC Glucose 151 H 10/26/22 00:30: APTT 52.6 H 10/26/22 06:27: POC Glucose 103 10/26/22 06:34: WBC 7.3, RBC 4.36 L, Hgb 12.6 L, Hct 39.8 L, MCV 91.3, MCH 28.9, MCHC 31.7 L, RDW Std Deviation 46.5 H, RDW Coeff of Thao 13.7, Plt Count 361, MPV 8.9, Immature Gran % (Auto) 1.200 H, Neut % (Auto) 73.4 H, Lymph % (Auto) 9.7 L, [place] % (Auto) 12.8 H, Eos % (Auto) 1.9, Baso % (Auto) 1.0, Absolute Neuts (auto) 5.4, Absolute Lymphs (auto) 0.71 L, Nucleated RBC % 0, APTT 84.3 H, Sodium 137, Potassium 4.1, Chloride 106, Carbon Dioxide 26.0, Anion Gap 5, BUN 30 H, Creatinine 1.77 H, Estim Creat Clear Calc 42.96, Est GFR (MDRD) Af Amer 50 L, Est GFR (MDRD) Non-Af 41 L, BUN/Creatinine Ratio 16.9, Glucose 115 H, Calcium 10.9 H 10/26/22 08:33: POC Glucose 116 H 10/26/22 10:20: Activated Clotting Time 275 H 10/26/22 11:05: Activated Clotting Time 251 H 10/26/22 11:52: POC Glucose 100 10/26/22 13:03: APTT 139.1 H* Physical Exam Narrative General: Alert, oriented, no apparent distress HEENT: Atraumatic, normocephalic Eyes: Anicteric, normal conjunctiva, extraocular movements grossly intact Neck: Supple Respiratory: normal respiratory effort Cardiovascular: Regular rate GI: Soft, nontender, nondistended Extremities: 1+ lower extremity edema Musculoskeletal: Moving all extremities Neuro: No overt focal neurological deficits Skin: No rashes appreciated Psych: Cooperative Assessment & Plan Assessment/Plan (1) Atherosclerosis of coronary artery of [place] heart without angina pectoris: QUALIFIERS: Coronary Disease-Associated Artery/Lesion type: [place] artery Qualified Code(s): I25.10 - Atherosclerotic heart disease of [place] coronary artery without angina pectoris (2) Hypertriglyceridemia: (3) Diabetes: QUALIFIERS: Diabetes mellitus type: type 2 Diabetes mellitus lock and dam repairer insulin use: with halfway use Diabetes mellitus complication status: with hyperglycemia Qualified Code(s): E11.65 - Type 2 diabetes mellitus with hyperglycemia; Z79.4 - cellophane tester (current) use of insulin (4) Hypercalcemia: PLAN: Plan #Chest discomfort?determined to be unstable angina -With known history of coronary artery disease with PCI and stenting of LAD in May 2016 and stent of OM1 in October 2021 -Patient presently chest pain-free but did have abnormal nuclear stress test, ideally will undergo cardiac cath before discharge but can be scheduled on a close outpatient basis if this is not feasible -Continue heparin drip, patient will require chronic anticoagulation with atrial fibrillation, will switch to oral AC pending Decision -cont plavix -Echo with EF of 55 to 60% with normal LV systolic function and moderate MR, no comment on diastolic dysfunction -10/25: Discussed with cardiology, heart cath tomorrow. Lasix held with kidney function and impending cath and patient have received some gentle hydration -10/26: Patient went for heart cath and had 3 stents placed, will be on Plavix and Eliquis and beta-robinson #History of coronary artery disease -With known history of coronary artery disease with PCI and stenting of LAD in May 2016 and stent of OM1 in October 2021 -Cont ranexa, BB, fenofibrate -10/25: Decrease beta-robinson due to intermittently low heart rates -10/26: See above #CKD stage IIIb -Slightly up from baseline, holding Lasix, gentle hydration after midnight in the event patient has heart cath, does not presently have CLARA but given bump in creatinine and pending heart cath will hold losartan -10/25: Improved slightly same -10/26: Slight increase today, will manage fluid balance carefully, receiving some fluids post-cath, will check a.m. creatinine and may resume Lasix at that time depending on respiratory and kidney function #pafib -Convert to oral AC once heart cath decision -Continue BB -10/25: Remains on heparin drip with heart cath pending, beta-robinson decreased due to low heart rates -10/26: Transitioned back to Eliquis #Type 2 diabetes mellitus -Glucose checks and sliding scale insulin -Continue glargine and Humulin but glucose is under tighter control the necessary while hospitalized especially given intermittent n.p.o. status will decrease glargine and insulin U-500 -Most recent A1c 6.4 on 09/06/2022 -10/26: Glucose very well controlled, can always decrease insulin dosing further however has not been hypoglycemic at this time #Hyperparathyroidism with hypercalcemia -Calcium 11.5 today, continue Cinacalcet -We will check PTH, vitamin D, Phos in the a.m. -10/25: 11.1 after some gentle hydration, PTH 197, vitamin D is 87.9 with a Phos of 2.6, continue Cinacalcet -10/26: Calcium 10.9 #Right olecranon bursitis ? Managed with anti-inflammatory medications as well as steroid and tramadol for pain plans for patient to follow-up with orthopedic surgeon Dr. Gary as outpatient #Anxiety and depression -Continue Paxil #FAVIAN -CPAP nightly #DVT ppx: Bryant Velez MD Time spent in the patient's overall evaluation,decision-making process, review of diagnostic data, adjustment of management, discussion with other providers, nursing nursing and ancillary staff involved in patient's care documentation, 40 minutes Charges/Coding Visit Charges Inpatient E&M: 88662 Subs Hosp L2
--- NOTE | 2022-10-26 14:06 | CRPHASE1_ITS ---
Patient Communication Patient Information Former Patient:: Phase I PHII Cardiac Rehab Discussed with Patient:: Yes Guide to Cardiac Rehab Given to Patient:: Yes Cardiac Rehab Facility Choice List Given to Patient:: Yes Communication to Cardiac Rehab Choice Program [facility] PHII:: Communication Given to CR (Patient has been instructed several times and has publication) Mechanical Engineering Professor:: Chema Alex Cardiac Rehabilitation Info Program Information Cardiac Rehabilitation Program Information: Cardiac Rehab The cardiac rehab team at [facility] consists of highly skilled exercise physiologists, nurses, respiratory therapists and physicians working together with you. Our purpose is to help you have a full recovery and achieve the goals you set for yourself. Over the years many of our patients have returned to activities they assumed they would never do again! We can help restore your confidence and motivation to make lifestyle changes that can have a significant impact on your health and quality of life! We can help answer questions and concerns you may have about exercise, lifestyle, medications, diet, stress and anxiety which are common following a hospitalization. WE monitor ECG and vital signs during exercise and discuss your progress with you and report to your physician(s). Cardiac Rehab is proven to help reduce readmissions, improve functional capacity and lower recurrence of problems with your heart. Our Cardiac Rehab program is Certified by the [place] [employer]io-Vascular and Pulmonary Rehabilitation (AACVPR) and Accredited by the [place] [employer] through our [facility]. You can contact us at . We invite you to call us with your questions or to get started in our program. If you have other questions or concerns be sure to ask your physician/provider during your follow-up visit. WE look forward to seeing you!
--- NOTE | 2022-10-26 14:08 | CRPH1.INSTRU ---
General Education Discussed with Patient CAD and cardiac anatomy and function:: Patient communicates acknowledgment Explanation of diagnoses and procedures:: Patient communicates acknowledgment Sign/Symptoms of NC:: Patient communicates acknowledgment Antiplatelet therapy: Patient communicates acknowledgment Proper use of NTG-SL: Patient communicates acknowledgment Emergency procedures and activation of EMS: Patient communicates acknowledgment Compliance of all prescribed medications: Patient communicates acknowledgment
[2022-10-26 16:44] LABS: Bedside Glucose 145 mg/dL (74-106)
[2022-10-26] MEDS: APIXABAN 5 MG TABLET PO ×2 (17:54→21:25)
[2022-10-26] MEDS: Insulin Lispro 100 UNIT/ML INSULN.PEN SC (21:32)
[2022-10-26 22:04] LABS: Bedside Glucose 169 mg/dL (74-106)
[2022-10-27 04:00] VITALS: O2SAT 97
[2022-10-27] MEDS: traMADol 50 MG Tablet PO ×2 (04:02→11:06)
[2022-10-27 04:40] VITALS: BP 146/95; PULSE 75; RESP 18; TEMP 36.5; O2SAT 97
[2022-10-27 05:29] VITALS: BMI 37.3
[2022-10-27 06:21] LABS: Hematocrit 40.3 % (40-54); Hemoglobin 12.5 g/dL (13.0-16.5); Mean Corpuscular Hgb 28.7 pg (27.0-32.0); Mean Corpuscular Volume 92.4 fL (80-94); Mean Platelet Vol. 9.3 fl (6.2-12.0); Platelet Count 354 K/mm3 (150-450); RBC Distribution Width CV 13.8 % (11.6-14.6); RBC Distribution Width SD 46.9 fl (35.1-43.9); Red Blood Count 4.36 M/mm3 (4.6-6.2); White Blood Count 6.9 K/mm3 (4.4-11.0)
[2022-10-27 06:51] LABS: AST(SGOT) 19 U/L (15-37); Alanine Aminotransfer ALT/SGPT 29 U/L (16-61); Albumin, Serum 3.6 g/dL (3.2-5.0); Alkaline Phosphatase 57 U/L (45-117); Anion Gap 8 (5-15); BUN 26 mg/dL (7-18); BUN/Creat Ratio 15.9 RATIO (10-20); Calcium,Total 10.5 mg/dL (8.5-10.1); Chloride 106 mmol/L (98-107); Creatinine, Serum 1.64 mg/dL (0.70-1.30); EST Glomerular Filtration Rate 45 mL/min (>60); Est Glom Filt Rate - Afr Amer 54 mL/min (>60); Estimated Creatinine Clearance 46.37 ml/min; Globulin 3.7 g/dL (2.2-4.2); Glucose 131 mg/dL (74-106); Protein, Total 7.3 g/dL (6.4-8.2); Sodium Level 138 mmol/L (136-145)
[2022-10-27] MEDS: Nystatin Powder 15gm Bottle 1 APPLIC TOPICAL (06:51)
[2022-10-27 07:11] LABS: Bedside Glucose 127 mg/dL (74-106)
[2022-10-27 07:40] VITALS: O2SAT 92
[2022-10-27 08:48] VITALS: BP 166/82; PULSE 70; RESP 18; TEMP 36.4; O2SAT 94
[2022-10-27 08:55] VITALS: BP 166/82; PULSE 70
[2022-10-27] MEDS: Ferrous Sulfate 325 MG Tablet PO (08:55)
[2022-10-27] MEDS: amLODIPine 10 MG Tablet PO (08:55)
[2022-10-27] MEDS: Metoprolol(XL)Succ 25 MG Tablet PO (08:55)
[2022-10-27] MEDS: Paroxetine 20 MG Tablet 40 MG PO (08:56)
[2022-10-27] MEDS: Cinacalcet HCl 30 MG Tablet PO (08:56)
[2022-10-27] MEDS: Fenofibrate 145 MG Tablet PO (08:56)
[2022-10-27] MEDS: Clopidogrel Bisulfate 75 MG Tablet PO (08:56)
[2022-10-27] MEDS: APIXABAN 5 MG TABLET PO (08:57)
[2022-10-27] MEDS: Insulin Glargine-YFGN 100 UNIT/ML Pen 7 UNIT SC (09:03)
[2022-10-27] MEDS: Insulin U-500 UNITS/ML PEN 10 UNITS SC ×2 (09:04→11:10)
--- NOTE | 2022-10-27 09:31 | PN.HOSP_ITS ---
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 (10/21/22) Presence of coronary angioplasty implant and graft (10/21/22) Subjective Subjective Feeling a little bit sore from the positioning during cardiac cath but denies any chest pain or shortness of breath Objective Data Objective Data Vital Signs: Vital Signs Temp Pulse Resp BP Pulse Ox O2 Del Method O2 Flow Rate 97.6 F L 70 18 166/82 H 94 Room Air 2 10/27/22 08:48 10/27/22 08:55 10/27/22 08:48 10/27/22 08:55 10/27/22 08:48 10/27/22 08:48 10/26/22 06:19 Oxygen Flow Rate (L/min) 2 Oxygen Delivery Method Room Air Weight: 118.2 kg Body Mass Index (BMI) 37.3 Intake & Output: Intake and Output for Last 24 Hours 10/25/22 10/26/22 10/27/22 23:59 23:59 23:59 Intake Total 1943.95 / 1943.95 2328.54 / 2328.54 60 / 60 Output Total 1475 / 1475 2500 / 2500 Balance 468.95 / 468.95 -171.46 / -171.46 60 / 60 Lab / Micro Data 10/27/22 05:57 10/27/22 05:57 Labs: Laboratory Results - last 24 hr 10/26/22 08:33: POC Glucose 116 H 10/26/22 10:20: Activated Clotting Time 275 H 10/26/22 11:05: Activated Clotting Time 251 H 10/26/22 11:52: POC Glucose 100 10/26/22 13:03: APTT 139.1 H* 10/26/22 16:24: POC Glucose 145 H 10/26/22 21:32: POC Glucose 169 H 10/27/22 05:57: WBC 6.9, RBC 4.36 L, Hgb 12.5 L, Hct 40.3, MCV 92.4, MCH 28.7, MCHC 31.0 L, RDW Std Deviation 46.9 H, RDW Coeff of Thao 13.8, Plt Count 354, MPV 9.3, Sodium 138, Potassium 4.0, Chloride 106, Carbon Dioxide 24.0, Anion Gap 8, BUN 26 H, Creatinine 1.64 H, Estim Creat Clear Calc 46.37, Est GFR (MDRD) Af Amer 54 L, Est GFR (MDRD) Non-Af 45 L, BUN/Creatinine Ratio 15.9, Glucose 131 H, Calcium 10.5 H, Total Bilirubin 0.50, AST 19, ALT 29, Alkaline Phosphatase 57, Total Protein 7.3, Albumin 3.6, Globulin 3.7, Albumin/Globulin Ratio 1.0 10/27/22 06:50: POC Glucose 127 H Physical Exam Narrative General: Alert, oriented, no apparent distress HEENT: Atraumatic, normocephalic Eyes: Anicteric, normal conjunctiva, extraocular movements grossly intact Neck: Supple Respiratory: normal respiratory effort Cardiovascular: Regular rate GI: Soft, nontender, nondistended Extremities: 1+ lower extremity edema Musculoskeletal: Moving all extremities Neuro: No overt focal neurological deficits Skin: No rashes appreciated Psych: Cooperative Assessment & Plan Assessment/Plan (1) Atherosclerosis of coronary artery of [place] heart without angina pectoris: QUALIFIERS: Coronary Disease-Associated Artery/Lesion type: [place] artery Qualified Code(s): I25.10 - Atherosclerotic heart disease of [place] coronary artery without angina pectoris (2) Hypertriglyceridemia: (3) Diabetes: QUALIFIERS: Diabetes mellitus type: type 2 Diabetes mellitus senior living insulin use: with extermination inspector use Diabetes mellitus complication status: with hyperglycemia Qualified Code(s): E11.65 - Type 2 diabetes mellitus with hyperglycemia; Z79.4 - extermination inspector (current) use of insulin (4) Hypercalcemia: PLAN: Plan #Chest discomfort?determined to be unstable angina -With known history of coronary artery disease with PCI and stenting of LAD in May 2016 and stent of OM1 in October 2021 -Patient presently chest pain-free but did have abnormal nuclear stress test, ideally will undergo cardiac cath before discharge but can be scheduled on a close outpatient basis if this is not feasible -Continue heparin drip, patient will require chronic anticoagulation with atrial fibrillation, will switch to oral AC pending Decision -cont plavix -Echo with EF of 55 to 60% with normal LV systolic function and moderate MR, no comment on diastolic dysfunction -10/25: Discussed with cardiology, heart cath tomorrow. Lasix held with kidney function and impending cath and patient have received some gentle hydration -10/26: Patient went for heart cath and had 3 stents placed, will be on Plavix and Eliquis and beta-robinson -10/27: Doing well today, chest pain-free, continue Eliquis, Plavix, beta-robinson #History of coronary artery disease -With known history of coronary artery disease with PCI and stenting of LAD in May 2016 and stent of OM1 in October 2021 -Cont ranexa, BB, fenofibrate -10/25: Decrease beta-robinson due to intermittently low heart rates -10/26: See above #CKD stage IIIb -Slightly up from baseline, holding Lasix, gentle hydration after midnight in t he event patient has heart cath, does not presently have CLARA but given bump in creatinine and pending heart cath will hold losartan -10/25: Improved slightly same -10/26: Slight increase today, will manage fluid balance carefully, receiving some fluids post-cath, will check a.m. creatinine and may resume Lasix at that time depending on respiratory and kidney function -10/27: Kidney function improved again today #pafib -Convert to oral AC once heart cath decision -Continue BB -10/25: Remains on heparin drip with heart cath pending, beta-robinson decreased due to low heart rates -10/26: Transitioned back to Eliquis #Type 2 diabetes mellitus -Glucose checks and sliding scale insulin -Continue glargine and Humulin but glucose is under tighter control the necessary while hospitalized especially given intermittent n.p.o. status will decrease glargine and insulin U-500 -Most recent A1c 6.4 on 09/06/2022 -10/26: Glucose very well controlled, can always decrease insulin dosing further however has not been hypoglycemic at this time -10/27: We will continue with present management #Hyperparathyroidism with hypercalcemia -Calcium 11.5 today, continue Cinacalcet -We will check PTH, vitamin D, Phos in the a.m. -10/25: 11.1 after some gentle hydration, PTH 197, vitamin D is 87.9 with a Phos of 2.6, continue Cinacalcet -10/26: Calcium 10.9 -10/27: Calcium 10.5, continue current management #Right olecranon bursitis ? Managed with anti-inflammatory medications as well as steroid and tramadol for pain plans for patient to follow-up with orthopedic surgeon Dr. Gary as outpatient #Anxiety and depression -Continue Paxil #FAVIAN -CPAP nightly #DVT ppx: Bryant Velez MD Time spent in the patient's overall evaluation,decision-making process, review of diagnostic data, adjustment of management, discussion with other providers, nursing nursing and ancillary staff involved in patient's care documentation, 40 minutes Charges/Coding Visit Charges Inpatient E&M: 84168 Subs Hosp L2
--- NOTE | 2022-10-27 10:00 | EKG12_ITS ---
Test Reason : AM EKG Blood Pressure : / mmHG Vent. Rate : 069 BPM Atrial Rate : 050 BPM P-R Int : 000 ms QRS Dur : 112 ms QT Int : 414 ms P-R-T Axes : 000 005 031 degrees QTc Int : 443 ms Atrial fibrillation Septal infarct , age undetermined Abnormal ECG When compared with ECG of 26-OCT-2022 11:46, MANUAL COMPARISON REQUIRED, DATA IS UNCONFIRMED Confirmed by BAILEE PIZANO, NII ([id number]), art editor NAZ NORIEGA ([id number]) on 11/01/2022 7:20:56 AM Referred By: DR WHITMORE Confirmed By:NII MOROCHO MD
--- NOTE | 2022-10-27 10:56 | TREXTCAR_ITS ---
Diet Diet Order/Speech Therapy: 10/26/22 11:50 Diet: Cardiac - Heart Healthy Is pt able to select menu?: Yes Routine Orders/Code Status Suppository Type: Dulcolax 10mg Suppository Frequency: Daily PRN Routine Lab Work: BMP (2-3 days for kidney fxn and potassium) Code Status: Full Code Therapies Physical Therapy: Eval and Treat Occupational Therapy: Eval and Treat Problem/Diagnosis (1) Atherosclerosis of coronary artery of [place] heart without angina pectoris: Status: Chronic Code(s): I25.10 - Atherosclerotic heart disease of [place] coronary artery without angina pectoris Comment: PCI-Mid LAD 3.0 x 16 mm Promus Synergy DANIEL , PCI and stent of 80% proximal OM1 10/12/2021 (2) Hypertriglyceridemia: Status: Chronic Code(s): E78.1 - Pure hyperglyceridemia (3) Diabetes: Status: Chronic Code(s): E11.9 - Type 2 diabetes mellitus without complications (4) Hypercalcemia: Status: Chronic Code(s): E83.52 - Hypercalcemia Plan #unstable angina w/ stenting #History of coronary artery disease #CKD stage IIIb #pafib #Type 2 diabetes mellitus #Hyperparathyroidism with hypercalcemia #Right olecranon bursitis #Anxiety and depression #FAVIAN 66-year-old male w/ PMHx: Hyperparathyroidism with hypercalcemia, CKD stage III unclear subtype, Chronic normocytic anemia/iron deficiency anemia, Anxiety and Depression, CAD s/p PCI, Asthma, Hx VTE (DVT, PE), HTN, HLD, FAVIAN, Seizure disorder, Diabetes mellitus type II, PAF, recent admission for olecranon bursit is with right upper extremity pain treated with IV steroids, low-dose NSAIDs specifically Mobic discharged on tramadol with plan follow-up with orthopedic surgeon Dr. Gary in 2 weeks who presents to the [facility] ED on 10/21/22 with history of intermittent chest discomfort. He had a stress test that was found to be positive and cardiology consulted. Patient ultimately had heart catheterization and had 3 stents placed. Echo during his admission with EF of 55 to 60% with normal LV systolic function and moderate MR with no comment on diastolic dysfunction. He tolerated cath well and plan was to discharge on Eliquis due to his A-fib and Plavix given his coronary artery disease as well as beta-robinson. He did have a slight increase in his creatinine from baseline that improved with holding Lasix and fluids. Cath time and was ultimately resumed on the Lasix. He also had to have down titration of his insulin due to low blood sugars. On day of discharge reports he is somewhat sore from the position he laid in with his heart cath but overall feeling well and denies chest pain or shortness of breath. Discharge instructions as follows: DISCHARGE INSTRUCTIONS PLEASE READ *Please take this with you to your next doctors appointment* -You will need to continue Eliquis 5 mg twice daily and Plavix on discharge -You will need to follow-up with cardiology upon discharge, please call the office of Dr. Alex upon discharge to schedule your hospital follow-up appointment (ph [phone]) -Would recommend lab work (BMP) to check your kidney function and potassium in 2 to 3 days through your primary care physician's office. Please call their office upon discharge to obtain order for lab work. -Weigh yourself every day. A sudden weight gain can mean you are retaining fluid. Weigh yourself at the same time of day and in the same kind of clothes. Ideally, weigh yourself first thing in the morning after you empty your bladder, but before you eat breakfast. -Please call your physician if your weight goes up by more than 2 pounds in 1 day or 5 pounds in 1 week. This can be a sign that you are retaining more fluid than you should be. -You have had several medication changes, your metformin was discontinued due to your kidney function and your long-acting insulin was decreased to 7 units and your Humulin 3 times daily was decreased to 10 units due to low blood sugars. Additionally your potassium was decreased to 20 mEq twice daily -Please call your primary care provider's office upon discharge to schedule a hospital follow up within 1 week. -For any concerning signs or symptoms please call 911 or proceed to the nearest emergency department Allergies/Procedures Done in Hospital Allergies No Known Allergies Allergy (Verified 10/20/22 22:49) Procedures: - (stress test, heart cath) Type of Care/Length of Stay Estimated LOS: Convalescent Care Less Than 30 days Type of Care Needed: Skilled Rehab Potential: Fair Prognosis: Fair Additional Orders/Day of Discharge Day of Discharge: 10/27/22 Dietary and Speech Recommendations Dietitian Recommendations/Changes: RD will adjust diet to 1800CCD/Cardiac diet to manage medical conditions. Discharge Plan Admission Admit Date/Time: 10/21/22 01:34 Primary Reason for Your Visit: Chest pain Attending Provider: Kassidy Velez Primary Care Provider: Mery Raymond Consulting Providers: Purvi Jensen; yT Rocha; Ryan Coreas Instructions Patient Instructions: AFib Dc Additional Instructions / Restrictions: DISCHARGE INSTRUCTIONS PLEASE READ *Please take this with you to your next doctors appointment* -You will need to continue Eliquis 5 mg twice daily and Plavix on discharge -You will need to follow-up with cardiology upon discharge, please call the office of Dr. Alex upon discharge to schedule your hospital follow-up appointment ) -Would recommend lab work (BMP) to check your kidney function and potassium in 2 to 3 days through your primary care physician's office. Please call their office upon discharge to obtain order for lab work. -Weigh yourself every day. A sudden weight gain can mean you are retaining fluid. Weigh yourself at the same time of day and in the same kind of clothes. Ideally, weigh yourself first thing in the morning after you empty your bladder, but before you eat breakfast. -Please call your physician if your weight goes up by more than 2 pounds in 1 day or 5 pounds in 1 week. This can be a sign that you are retaining more fluid than you should be. -You have had several medication changes, your metformin was discontinued due to your kidney function and your long-acting insulin was decreased to 7 units and your Humulin 3 times daily was decreased to 10 units due to low blood sugars. Additionally your potassium was decreased to 20 mEq twice daily -Please call your primary care provider's office upon discharge to schedule a hospital follow up within 1 week. -For any concerning signs or symptoms please call 911 or proceed to the nearest emergency department Discharge Orders/Prescriptions Prescriptions: New Eliquis 5 mg Tablet 5 mg PO BID Qty: 30 0RF Continued (DME) Handicap Placard See Rx Instructions .ROUTE .MEDSUPPLY Qty: 1 0RF Rx Instructions: As directed, length of time 3 years (DME) FreeStyle Tiffanie 2 [facility] See Rx Instructions .ROUTE .MEDSUPPLY Qty: 1 0RF Rx Instructions: As directed (DME) FreeStyle Tiffanie 2 Sensor Kit See Rx Instructions .ROUTE .MEDSUPPLY Qty: 2 6RF Rx Instructions: As directed ferrous sulfate 325 mg (65 mg iron) tablet 325 mg PO DAILY Qty: 90 1RF (DME) OneTouch Verio test strips Strip See Rx Instructions .ROUTE .MEDSUPPLY Qty: 100 12RF Rx Instructions: test 3 times daily cinacalcet 30 mg tablet 30 mg PO BID Qty: 60 6RF Ozempic 1 mg/dose (4 mg/3 mL) pen injector 1 mg subcut QWEEK Qty: 3 4RF furosemide 20 mg tablet 40 mg PO BID 90 Days Qty: 360 3RF acetaminophen 650 mg suppository 650 mg MA Q4H PRN (Reason: fever or pain) aluminum-magnesium hydroxide 225-200 mg/5 mL suspension 30 ml PO DAILY PRN (Reason: GI DISTRESS) bisacodyl 10 mg suppository 10 mg MA DAILY PRN (Reason: constipation) Enema 19-7 gram/118 mL enema 118 ml MA DAILY PRN (Reason: constipation) glucagon HCl [Glucagon (HCl) Emergency Kit] 1 mg recon soln 1 mg IM Q20M PRN (Reason: hypoglycemia) Rx Instructions: until target blood sugar attained dextrose [Glucose Gel] 40 % gel 15 g PO Q15M PRN (Reason: hypoglycemia) Rx Instructions: until symptoms of low blood sugar are controlled guaifenesin 200 mg/5 mL liquid 200 mg PO Q4H PRN (Reason: congestion) magnesium hydroxide [Milk of Magnesia] 400 mg/5 mL suspension 30 ml PO DAILY PRN (Reason: constipation) tramadol 50 mg Tablet 50 mg PO Q6H PRN PRN (Reason: Pain Score 6-10) 3 Days Qty: 10 0RF amlodipine 10 mg tablet 10 mg PO DAILY Qty: 90 3RF losartan 25 mg tablet 25 mg PO DAILY Qty: 90 3RF Hold Instructions: Hold for 5 days. ranolazine 500 mg tablet extended release 12 hr 500 mg PO BID Qty: 180 3RF nitroglycerin 0.4 mg tablet, sublingual See Rx Instructions .ROUTE .COMPLEX Qty: 25 10RF Dose Instruction: DISSOLVE 1 TABLET UNDER THE TONGUE NEEDED FOR CHEST PAIN EVERY 5 MINUTES UP TO 3 TIMES. IF NO RELIEF CALL 911. Rx Instructions: DISSOLVE 1 TABLET UNDER THE TONGUE NEEDED FOR CHEST PAIN EVERY 5 MINUTES UP TO 3 TIMES. IF NO RELIEF CALL 911. (DME) pen needle, diabetic [BD Ultra-Fine Lorie Pen Needle] 32 gauge x 5/32 needle See Rx Instructions .ROUTE .MEDSUPPLY Qty: 360 5RF Rx Instructions: 4x/day paroxetine HCl 40 mg tablet 40 mg PO DAILY Qty: 90 3RF Rx Instructions: TAKE 1 TABLET BY MOUTH ONCE DAILY cholecalciferol (vitamin D3) 1,250 mcg (50,000 unit) capsule 1,250 mcg PO QWEEK Qty: 8 6RF metoprolol succinate 50 mg tablet extended release 24 hr 50 mg PO BID Qty: 180 3RF clopidogrel 75 mg tablet 75 mg PO DAILY Qty: 90 3RF fenofibrate micronized 200 mg capsule 200 mg PO DAILY Qty: 30 12RF Changed potassium chloride 20 mEq tablet,ER particles/crystals 20 meq PO BID 90 Days Qty: 540 1RF insulin glargine [Lantus Solostar U-100 Insulin] 100 unit/mL (3 mL) insulin pen 7 unit subcut DAILY Qty: 15 3RF Rx Instructions: Hold if glucose less than 130 mg/dl Humulin R U-500 (Conc) Kwikpen 500 unit/mL (3 mL) insulin pen 10 unit SUBCUT .TIDCM Qty: 6 5RF Discontinued acetaminophen 325 mg Tablet 650 mg PO Q4H PRN (Reason: Pain 1-10 Or Fever>100.7) metformin 1,000 mg tablet 1,000 mg PO BIDCM Qty: 180 3RF Referrals / Follow Up: Chema Alex MD [Med Staff - Active Staff] - Within 1 Week Mery Raymond MD [Primary Care Provider] - Within 1 Week Disposition Disposition (needs filled in before D/C Order can be placed): [facility] (1) Atherosclerosis of coronary artery of [place] heart without angina pectoris Qualifiers: Coronary Disease-Associated Artery/Lesion type: [place] artery Qualified Code(s): I25.10 - Atherosclerotic heart disease of [place] coronary artery without angina pectoris (3) Diabetes Qualifiers: Diabetes mellitus type: type 2 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
--- NOTE | 2022-10-27 11:01 | PCM.DC.SUM ---
Providers Date of Admission: 10/21/22 Date of Discharge: 10/27/22 Primary Care Physician: Dr. Mery Raymond MD Consultations 10/21/22 16:56 Consult: Cardiology Routine Consulting Provider: Ty Rocha Reason for Consult: Abnormal stress test EMERGENT Consult: No MD Notified: Yes Date Notified: 10/21/22 Time Notified: 16:57 Method of Notification: Text Reason For Visit: PAF, chest pain Diagnosis Discharge Diagnosis (1) Atherosclerosis of coronary artery of grindstone heart without angina pectoris: Status: Chronic Code(s): I25.10 - Atherosclerotic heart disease of grindstone coronary artery without angina pectoris Qualifiers: Coronary Disease-Associated Artery/Lesion type: grindstone artery Qualified Code(s): I25.10 - Atherosclerotic heart disease of [place] coronary artery without angina pectoris (2) Hypertriglyceridemia: Status: Chronic Code(s): E78.1 - Pure hyperglyceridemia (3) Diabetes: Status: Chronic Code(s): E11.9 - Type 2 diabetes mellitus without complications Qualifiers: Diabetes mellitus type: type 2 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 use: with marine oil 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 use Diabetes mellitus complication status: with hyperglycemia Qualified Code(s): E11.65 - Type 2 diabetes mellitus with hyperglycemia; Z79.4 - jail (current) use of insulin (4) Hypercalcemia: Status: Chronic Code(s): E83.52 - Hypercalcemia Plan #unstable angina w/ stenting #History of coronary artery disease #CKD stage IIIb #pafib #Type 2 diabetes mellitus #Hyperparathyroidism with hypercalcemia #Right olecranon bursitis #Anxiety and depression #FAVIAN Medications at Discharge Home Medications Handicap Placard #1 ea 04/08/20 flash glucose scanning reader (FreeStyle Tiffanie 2 [place]) #1 ea 02/16/21 flash glucose sensor (FreeStyle Tiffanie 2 Sensor kit) #2 ea 02/16/21 amlodipine 10 mg tablet 10 mg PO DAILY BLOOD PRESSURE #90 tabs 11/25/21 losartan 25 mg tablet 25 mg PO DAILY #90 tabs 12/06/21 ranolazine 500 mg tablet,extended release,12 hr 500 mg PO BID #180 tabs 01/11/22 nitroglycerin 0.4 mg sublingual tablet See Rx Instructions .Route .COMPLEX #25 tabs 02/22/22 pen needle, diabetic 32 gauge x 5/32 (BD Ultra-Fine Lorie Pen Needle) #360 ea 04/08/22 paroxetine HCl 40 mg tablet 40 mg PO DAILY depression #90 tabs 04/12/22 ferrous sulfate 325 mg (65 mg iron) tablet 325 mg PO DAILY #90 tabs 08/18/22 Ozempic 1 mg/dose (4 mg/3 mL) subcutaneous pen injector (semaglutide) 1 mg (0.75 mL) subcut QWEEK #3 mL 09/06/22 blood sugar diagnostic (OneTouch Verio test strips) #100 ea 09/06/22 cinacalcet 30 mg tablet 30 mg PO BID #60 tabs 09/06/22 cholecalciferol (vitamin D3) 1,250 mcg (50,000 unit) capsule 1,250 mcg PO QWEEK #8 caps 09/07/22 furosemide 20 mg tablet 40 mg (2 x 20 mg) PO BID 90 days #360 tabs 09/09/22 metoprolol succinate 50 mg tablet,extended release 24 hr 50 mg PO BID BLOOD PRESSURE #180 tabs 09/21/22 clopidogrel 75 mg tablet 75 mg PO DAILY BLOOD THINNER #90 tabs 10/03/22 tramadol 50 mg tablet 50 mg PO Q6H PRN PRN Pain Score 6-10 3 days #10 tabs 10/18/22 acetaminophen 650 mg rectal suppository 650 mg ND Q4H PRN fever or pain 10/20/22 aluminum-magnesium hydroxide 225 mg-200 mg/5 mL oral suspension 30 ml PO DAILY PRN GI DISTRESS 10/20/22 bisacodyl 10 mg rectal suppository 10 mg ND DAILY PRN constipation 10/20/22 dextrose 40 % oral gel (Glucose Gel) 15 g PO Q15M PRN hypoglycemia 10/20/22 fenofibrate micronized 200 mg capsule 200 mg PO DAILY #30 caps 10/20/22 glucagon HCl 1 mg solution for injection (Glucagon (HCl) Emergency Kit) 1 mg IM Q20M PRN hypoglycemia 10/20/22 guaifenesin 200 mg/5 mL oral liquid 200 mg PO Q4H PRN congestion 10/20/22 magnesium hydroxide 400 mg/5 mL oral suspension (Milk of Magnesia) 30 ml PO DAILY PRN constipation 10/20/22 sodium phosphates 19 gram-7 gram/118 mL enema (Enema) 118 ml ND DAILY PRN constipation 10/20/22 apixaban 5 mg tablet (Eliquis) 5 mg PO BID #30 tabs 10/27/22 insulin glargine 100 unit/mL (3 mL) subcutaneous pen (Lantus Solostar U-100 Insulin) 7 unit (0.07 mL) subcut DAILY #15 mL 10/27/22 insulin regular hum U-500 conc 500 unit/mL(3 mL) subcut pen (Humulin R U-500 (Conc) Insulin Kwikpen) 10 unit (0.02 mL) subcut .TIDCM #6 mL 10/27/22 potassium chloride 20 mEq tablet,extended release(part/cryst) 20 meq PO BID potassium 90 days #540 tabs 10/27/22 Hospital Course Procedures Cardiac catheterization, Nuclear stress test and Transthoracic echo Summary of Care Provided Minutes Spent on Discharge: 32 Hospital Course: 66-year-old male w/ PMHx: Hyperparathyroidism with hypercalcemia, CKD stage III unclear subtype, Chronic normocytic anemia/iron deficiency anemia, Anxiety and Depression, CAD s/p PCI, Asthma, Hx VTE (DVT, PE), HTN, HLD, FAVIAN, Seizure disorder, Diabetes mellitus type II, PAF, recent admission for olecranon bursitis with right upper extremity pain treated with IV steroids, low-dose NSAIDs specifically Mobic discharged on tramadol with plan follow-up with orthopedic surgeon Dr. Gary in 2 weeks who presents to the [facility] ED on 10/21/22 with history of intermittent chest discomfort. He had a stress test that was found to be positive and cardiology consulted. Patient ultimately had heart catheterization and had 3 stents placed. Echo during his admission with EF of 55 to 60% with normal LV systolic function and moderate MR with no comment on diastolic dysfunction. He tolerated cath well and plan was to discharge on Eliquis due to his A-fib and Plavix given his coronary artery disease as well as beta-kenyon. He did have a slight increase in his creatinine from baseline that improved with holding Lasix and fluids. Cath time and was ultimately resumed on the Lasix. He also had to have down titration of his insulin due to low blood sugars. On day of discharge reports he is somewhat sore from the position he laid in with his heart cath but overall feeling well and denies chest pain or shortness of breath. Discharge instructions as follows: DISCHARGE INSTRUCTIONS PLEASE READ *Please take this with you to your next doctors appointment* -You will need to continue Eliquis 5 mg twice daily and Plavix on discharge -You will need to follow-up with cardiology upon discharge, please call the office of Dr. Alex upon discharge to schedule your hospital follow-up appointment ) -Would recommend lab work (BMP) to check your kidney function and potassium in 2 to 3 days through your primary care physician's office. Please call their office upon discharge to obtain order for lab work. -Weigh yourself every day. A sudden weight gain can mean you are retaining fluid. Weigh yourself at the same time of day and in the same kind of clothes. Ideally, weigh yourself first thing in the morning after you empty your bladder, but before you eat breakfast. -Please call your physician if your weight goes up by more than 2 pounds in 1 day or 5 pounds in 1 week. This can be a sign that you are retaining more fluid than you should be. -You have had several medication changes, your metformin was discontinued due to your kidney function and your long-acting insulin was decreased to 7 units and your Humulin 3 times daily was decreased to 10 units due to low blood sugars. Additionally your potassium was decreased to 20 mEq twice daily -Please call your primary care provider's office upon discharge to schedule a hospital follow up within 1 week. -For any concerning signs or symptoms please call 911 or proceed to the nearest emergency department Physical Exam Narrative General: Alert, oriented, no apparent distress HEENT: Atraumatic, normocephalic Eyes: Anicteric, normal conjunctiva, extraocular movements grossly intact Neck: Supple Respiratory: normal respiratory effort Cardiovascular: Regular rate GI: Soft, nontender, nondistended Extremities: 1+ lower extremity edema Musculoskeletal: Moving all extremities Neuro: No overt focal neurological deficits Skin: No rashes appreciated Psych: Cooperative Weight / BMI Weight Weight: 118.2 kg Body Mass Index (BMI) 37.3 ABG / Lab / Microbiology Data 10/27/22 05:57 10/27/22 05:57 Laboratory: Laboratory Results - last 24 hr 10/26/22 10:20: Activated Clotting Time 275 H 10/26/22 11:05: Activated Clotting Time 251 H 10/26/22 11:52: POC Glucose 100 10/26/22 13:03: APTT 139.1 H* 10/26/22 16:24: POC Glucose 145 H 10/26/22 21:32: POC Glucose 169 H 10/27/22 05:57: WBC 6.9, RBC 4.36 L, Hgb 12.5 L, Hct 40.3, MCV 92.4, MCH 28.7, MCHC 31.0 L, RDW Std Deviation 46.9 H, RDW Coeff of Thao 13.8, Plt Count 354, MPV 9.3, Sodium 138, Potassium 4.0, Chloride 106, Carbon Dioxide 24.0, Anion Gap 8, BUN 26 H, Creatinine 1.64 H, Estim Creat Clear Calc 46.37, Est GFR (MDRD) Af Amer 54 L, Est GFR (MDRD) Non-Af 45 L, BUN/Creatinine Ratio 15.9, Glucose 131 H, Calcium 10.5 H, Total Bilirubin 0.50, AST 19, ALT 29, Alkaline Phosphatase 57, Total Protein 7.3, Albumin 3.6, Globulin 3.7, Albumin/Globulin Ratio 1.0 10/27/22 06:50: POC Glucose 127 H D/C Instructions Discharge Diet: - (-DASH diet, 3000 mg sodium restriction, 2 L fluid restriction) Discharge Activity: - (Per PT recommendations) Meaningful Use Info Meaningful Use Diagnoses (Choose all that apply): AMI AMI/Post PCI/Angioplasty Aspirin given w/in 24hrs of arrival?: Yes ASA at discharge?: No Reason ASA not ordered:: Drug Interaction (d/c w/ plavix and eliquis instead) Antiplatelet Therapy at Discharge:: Yes Statins at discharge?: No Reason statins not ordered:: Drug Interaction (fenofibrate pt is on ) Linus/ARB at discharge?: Yes Beta Kenyon at discharge?: Yes Done w/ Acute VA measure.: Yes Documented LVEF (%): 55 Discharge Plan Admission Admit Date/Time: 10/21/22 01:34 Primary Reason for Your Visit: Chest pain Attending Provider: Kassidy Velez Primary Care Provider: Mery Raymond Consulting Providers: Purvi Jensen; Ty Rocha; Ryan Coreas Instructions Patient Instructions: AFib Dc Additional Instructions / Restrictions: DISCHARGE INSTRUCTIONS PLEASE READ *Please take this with you to your next doctors appointment* -You will need to continue Eliquis 5 mg twice daily and Plavix on discharge -You will need to follow-up with cardiology upon discharge, please call the office of Dr. Alex upon discharge to schedule your hospital follow-up appointment ) -Would recommend lab work (BMP) to check your kidney function and potassium in 2 to 3 days through your primary care physician's office. Please call their office upon discharge to obtain order for lab work. -Weigh yourself every day. A sudden weight gain can mean you are retaining fluid. Weigh yourself at the same time of day and in the same kind of clothes. Ideally, weigh yourself first thing in the morning after you empty your bladder, but before you eat breakfast. -Please call your physician if your weight goes up by more than 2 pounds in 1 day or 5 pounds in 1 week. This can be a sign that you are retaining more fluid than you should be. -You have had several medication changes, your metformin was discontinued due to your kidney function and your long-acting insulin was decreased to 7 units and your Humulin 3 times daily was decreased to 10 units due to low blood sugars. Additionally your potassium was decreased to 20 mEq twice daily -Please call your primary care provider's office upon discharge to schedule a hospital follow up within 1 week. -For any concerning signs or symptoms please call 911 or proceed to the nearest emergency department Discharge Orders/Prescriptions Prescriptions: New Eliquis 5 mg Tablet 5 mg PO BID Qty: 30 0RF Continued (DME) Handicap Placard See Rx Instructions .ROUTE .MEDSUPPLY Qty: 1 0RF Rx Instructions: As directed, length of time 3 years (DME) FreeStyle Tiffanie 2 [place] [facility] See Rx Instructions .ROUTE .MEDSUPPLY Qty: 1 0RF Rx Instructions: As directed (DME) FreeStyle Tiffanie 2 Sensor Kit See Rx Instructions .ROUTE .MEDSUPPLY Qty: 2 6RF Rx Instructions: As directed ferrous sulfate 325 mg (65 mg iron) tablet 325 mg PO DAILY Qty: 90 1RF (DME) OneTouch Verio test strips Strip See Rx Instructions .ROUTE .MEDSUPPLY Qty: 100 12RF Rx Instructions: test 3 times daily cinacalcet 30 mg tablet 30 mg PO BID Qty: 60 6RF Ozempic 1 mg/dose (4 mg/3 mL) pen injector 1 mg subcut QWEEK Qty: 3 4RF furosemide 20 mg tablet 40 mg PO BID 90 Days Qty: 360 3RF acetaminophen 650 mg suppository 650 mg ND Q4H PRN (Reason: fever or pain) aluminum-magnesium hydroxide 225-200 mg/5 mL suspension 30 ml PO DAILY PRN (Reason: GI DISTRESS) bisacodyl 10 mg suppository 10 mg ND DAILY PRN (Reason: constipation) Enema 19-7 gram/118 mL enema 118 ml ND DAILY PRN (Reason: constipation) glucagon HCl [Glucagon (HCl) Emergency Kit] 1 mg recon soln 1 mg IM Q20M PRN (Reason: hypoglycemia) Rx Instructions: until target blood sugar attained dextrose [Glucose Gel] 40 % gel 15 g PO Q15M PRN (Reason: hypoglycemia) Rx Instructions: until symptoms of low blood sugar are controlled guaifenesin 200 mg/5 mL liquid 200 mg PO Q4H PRN (Reason: congestion) magnesium hydroxide [Milk of Magnesia] 400 mg/5 mL suspension 30 ml PO DAILY PRN (Reason: constipation) tramadol 50 mg Tablet 50 mg PO Q6H PRN PRN (Reason: Pain Score 6-10) 3 Days Qty: 10 0RF amlodipine 10 mg tablet 10 mg PO DAILY Qty: 90 3RF losartan 25 mg tablet 25 mg PO DAILY Qty: 90 3RF Hold Instructions: Hold for 5 days. ranolazine 500 mg tablet extended release 12 hr 500 mg PO BID Qty: 180 3RF nitroglycerin 0.4 mg tablet, sublingual See Rx Instructions .ROUTE .COMPLEX Qty: 25 10RF Dose Instruction: DISSOLVE 1 TABLET UNDER THE TONGUE NEEDED FOR CHEST PAIN EVERY 5 MINUTES UP TO 3 TIMES. IF NO RELIEF CALL 911. Rx Instructions: DISSOLVE 1 TABLET UNDER THE TONGUE NEEDED FOR CHEST PAIN EVERY 5 MINUTES UP TO 3 TIMES. IF NO RELIEF CALL 911. (DME) pen needle, diabetic [BD Ultra-Fine Lorie Pen Needle] 32 gauge x 5/32 needle See Rx Instructions .ROUTE .MEDSUPPLY Qty: 360 5RF Rx Instructions: 4x/day paroxetine HCl 40 mg tablet 40 mg PO DAILY Qty: 90 3RF Rx Instructions: TAKE 1 TABLET BY MOUTH ONCE DAILY cholecalciferol (vitamin D3) 1,250 mcg (50,000 unit) capsule 1,250 mcg PO QWEEK Qty: 8 6RF metoprolol succinate 50 mg tablet extended release 24 hr 50 mg PO BID Qty: 180 3RF clopidogrel 75 mg tablet 75 mg PO DAILY Qty: 90 3RF fenofibrate micronized 200 mg capsule 200 mg PO DAILY Qty: 30 12RF Changed potassium chloride 20 mEq tablet,ER particles/crystals 20 meq PO BID 90 Days Qty: 540 1RF insulin glargine [Lantus Solostar U-100 Insulin] 100 unit/mL (3 mL) insulin pen 7 unit subcut DAILY Qty: 15 3RF Rx Instructions: Hold if glucose less than 130 mg/dl Humulin R U-500 (Conc) Kwikpen 500 unit/mL (3 mL) insulin pen 10 unit SUBCUT .TIDCM Qty: 6 5RF Discontinued acetaminophen 325 mg Tablet 650 mg PO Q4H PRN (Reason: Pain 1-10 Or Fever>100.7) metformin 1,000 mg tablet 1,000 mg PO BIDCM Qty: 180 3RF Referrals / Follow Up: Chema Alex MD [Med Staff - Active Staff] - Within 1 Week Mery Raymond MD [Primary Care Provider] - Within 1 Week Disposition Disposition (needs filled in before D/C Order can be placed): Group Home Facility Charges/Coding Visit Charges Inpatient E&M: 97516 Disch Hosp >30min
[2022-10-27] MEDS: Insulin Lispro 100 UNIT/ML INSULN.PEN SC (11:09)
--- NOTE | 2022-10-27 11:23 | CASEMGMT ---
Discharge Planning Discharge orders, signed med list, and transport time sent to [facility] via [facility]. [facility] will transport patient by wheelchair at 12:30p. Patient, SW, and nursing all notified. Patient stated that he would call his brother to update. Jennifer Stringer, Discharge Planning Asst.
[2022-10-27 11:24] LABS: Bedside Glucose 168 mg/dL (74-106)
[2022-10-27 11:25] LABS: Bedside Glucose 171 mg/dL (74-106)
--- NOTE | 2022-10-27 11:30 | PHA.DC.MR.R ---
Pharmacy [place] Med Reconciliation Pharmacy Service has performed discharge medication reconciliation for this patient. The patient's discharge medication list was reviewed for discrepancies and discrepancies were resolved. Medications at Discharge Home Medications Handicap Placard #1 ea 04/08/20 flash glucose scanning reader (FreeStyle Tiffanie 2 [place]) #1 ea 02/16/21 flash glucose sensor (FreeStyle Tiffanie 2 Sensor kit) #2 ea 02/16/21 amlodipine 10 mg tablet 10 mg PO DAILY BLOOD PRESSURE #90 tabs 11/25/21 losartan 25 mg tablet 25 mg PO DAILY #90 tabs 12/06/21 ranolazine 500 mg tablet,extended release,12 hr 500 mg PO BID #180 tabs 01/11/22 nitroglycerin 0.4 mg sublingual tablet See Rx Instructions .Route .COMPLEX #25 tabs 02/22/22 pen needle, diabetic 32 gauge x 5/32 (BD Ultra-Fine Lorie Pen Needle) #360 ea 04/08/22 paroxetine HCl 40 mg tablet 40 mg PO DAILY depression #90 tabs 04/12/22 ferrous sulfate 325 mg (65 mg iron) tablet 325 mg PO DAILY #90 tabs 08/18/22 Ozempic 1 mg/dose (4 mg/3 mL) subcutaneous pen injector (semaglutide) 1 mg (0.75 mL) subcut QWEEK #3 mL 09/06/22 blood sugar diagnostic (OneTouch Verio test strips) #100 ea 09/06/22 cinacalcet 30 mg tablet 30 mg PO BID #60 tabs 09/06/22 cholecalciferol (vitamin D3) 1,250 mcg (50,000 unit) capsule 1,250 mcg PO QWEEK #8 caps 09/07/22 furosemide 20 mg tablet 40 mg (2 x 20 mg) PO BID 90 days #360 tabs 09/09/22 metoprolol succinate 50 mg tablet,extended release 24 hr 50 mg PO BID BLOOD PRESSURE #180 tabs 09/21/22 clopidogrel 75 mg tablet 75 mg PO DAILY BLOOD THINNER #90 tabs 10/03/22 tramadol 50 mg tablet 50 mg PO Q6H PRN PRN Pain Score 6-10 3 days #10 tabs 10/18/22 acetaminophen 650 mg rectal suppository 650 mg ME Q4H PRN fever or pain 10/20/22 aluminum-magnesium hydroxide 225 mg-200 mg/5 mL oral suspension 30 ml PO DAILY PRN GI DISTRESS 10/20/22 bisacodyl 10 mg rectal suppository 10 mg ME DAILY PRN constipation 10/20/22 dextrose 40 % oral gel (Glucose Gel) 15 g PO Q15M PRN hypoglycemia 10/20/22 fenofibrate micronized 200 mg capsule 200 mg PO DAILY #30 caps 10/20/22 glucagon HCl 1 mg solution for injection (Glucagon (HCl) Emergency Kit) 1 mg IM Q20M PRN hypoglycemia 10/20/22 guaifenesin 200 mg/5 mL oral liquid 200 mg PO Q4H PRN congestion 10/20/22 magnesium hydroxide 400 mg/5 mL oral suspension (Milk of Magnesia) 30 ml PO DAILY PRN constipation 10/20/22 sodium phosphates 19 gram-7 gram/118 mL enema (Enema) 118 ml ME DAILY PRN constipation 10/20/22 apixaban 5 mg tablet (Eliquis) 5 mg PO BID #30 tabs 10/27/22 insulin glargine 100 unit/mL (3 mL) subcutaneous pen (Lantus Solostar U-100 Insulin) 7 unit (0.07 mL) subcut DAILY #15 mL 10/27/22 insulin regular hum U-500 conc 500 unit/mL(3 mL) subcut pen (Humulin R U-500 (Conc) Insulin Kwikpen) 10 unit (0.02 mL) subcut .TIDCM #6 mL 10/27/22 potassium chloride 20 mEq tablet,extended release(part/cryst) 20 meq PO BID potassium 90 days #540 tabs 10/27/22
== END 2022-10-27 12:40 | disposition skilled nursing facility (03) | DRG 247 ==
LOC: ED 10-21 01:05 → PCU 10-21 01:45
PROVIDERS: Internal Medicine; Internal Medicine Cardiovascular Disease; Internal Medicine Interventional Cardiology; Admitting Provider Family Medicine; Emergency Provider Emergency Medicine; PCP Internal Medicine; Visit Provider Internal Medicine
DX: T82.855A Stenosis of coronary artery stent, initial encounter (principal); I13.0 Hypertensive heart and chronic kidney disease with heart failure and stage 1 through stage 4 chronic kidney disease, or unspecified chronic kidney disease; I25.110 Atherosclerotic heart disease of native coronary artery with unstable angina pectoris; E11.22 Type 2 diabetes mellitus with diabetic chronic kidney disease; I50.9 Heart failure, unspecified; I48.0 Paroxysmal atrial fibrillation; G40.909 Epilepsy, unspecified, not intractable, without status epilepticus; E11.65 Type 2 diabetes mellitus with hyperglycemia; E21.3 Hyperparathyroidism, unspecified; Z79.4 Long term (current) use of insulin; N18.32 Chronic kidney disease, stage 3b; E78.00 Pure hypercholesterolemia, unspecified; M70.21 Olecranon bursitis, right elbow; E83.52 Hypercalcemia; F41.9 Anxiety disorder, unspecified; G47.33 Obstructive sleep apnea (adult) (pediatric); F32.A Depression, unspecified; G89.29 Other chronic pain; E66.9 Obesity, unspecified; Z68.38 Body mass index [BMI] 38.0-38.9, adult; Z79.02 Long term (current) use of antithrombotics/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; Z79.899 Other long term (current) drug therapy; Z95.5 Presence of coronary angioplasty implant and graft; Z86.711 Personal history of pulmonary embolism; Z86.718 Personal history of other venous thrombosis and embolism
CPT/HCPCS: 36415; 71045; 71275; 78452; 80048; 80053; 80061; 82306; 82330; 82962; 83735; 83880; 83970; 84100; 84443; 84484; 85025; 85027; 85347; 85379; 85610; 85730; 92928; 92929; 93005; 93017; 93306; 93454; 94668; 97162; 97166; 97530; 97535; 99152; 99153; 99285; A9500; J7030; J7040; Q9957; Q9967; A4216; C1725; C1769; C1874; C1887; C1894; C9600; C9601; J1940; J2785

== ENCOUNTER 2023-02-26 01:12 | Inpatient (IN) | payer MEDICARE, SELFPAY ==
[2021-11-05 09:04] VITALS: BMI 43.3
[2023-02-26] VITALS (16 sets, daily range): BP systolic 149–202; BP diastolic 82–114; PULSE 72–99; RESP 18–32; TEMP 36.1–36.6; O2SAT 87–98; BMI 38.2; BMI 36.6
--- NOTE | 2023-02-26 01:20 | EKG12_ITS ---
Test Reason : DYSRHYTHMIA Blood Pressure : / mmHG Vent. Rate : 092 BPM Atrial Rate : 092 BPM P-R Int : 174 ms QRS Dur : 106 ms QT Int : 364 ms P-R-T Axes : 079 002 139 degrees QTc Int : 450 ms Normal sinus rhythm with sinus arrhythmia Septal infarct , age undetermined Abnormal ECG Confirmed by BAILEE PIZANO, NII ([id number]), medical transcription editor NAZ NORIEGA ([id number]) on 03/01/2023 12:41:56 PM Referred By: Confirmed By:NII MOROCHO MD
--- NOTE | 2023-02-26 01:23 | EDS_ITS ---
HPI History of Present Illness Chief Complaint: Shortness of Breath Informant: patient and EMS Narrative Narrative: Presents with dyspnea by EMS. Patient states that about a week ago he started getting slightly short of breath. But it is gotten slowly worse. He is gotten a cough over the last day or so but no productivity. No fevers chills. He is not having chest pain. After extensive questioning I find out he was on Lasix but ran out about a week ago. He is not sure what his dosage was but its been as high as 40 mg twice a day. He also ran out of Synthroid but that is only been about 3 days. He cannot lay flat. No hemoptysis or sputum production. [facility] Medical History (Updated 02/26/23 @ 02:[address] Linus Yanez MD) Abnormal chest xray Acquired left ventricular hypertrophy Acute midline thoracic back pain Adult failure to thrive Anemia Anxiety and depression Arthritis Asthma Atherosclerosis of coronary artery of [place] heart without angina pectoris Atrial fibrillation Benign essential HTN Chest pain Chronic hypoxemic respiratory failure Chronic pain of both knees Chronic wound of head Colon cancer screening Congestive heart failure Dark stools Debility Depression Diabetes Dizziness MEANS (dyspnea on exertion) Dyspnea on exertion Essential (primary) hypertension Fatigue Health care maintenance History of DVT (deep vein thrombosis) History of pulmonary embolism Hypercalcemia Hyperlipidemia Hyperparathyroidism Hypertriglyceridemia Hypoxia Insomnia Morbid obesity with BMI of 40.0-44.9, adult Near syncope Obesity Olecranon bursitis FAVIAN (obstructive sleep apnea) Osteoarthritis Osteopenia Primary hyperparathyroidism Pure hypercholesterolemia Renal insufficiency Sciatica Secondary pulmonary hypertension Seizures Shortness of breath Type 2 diabetes mellitus Vertigo Vitamin D deficiency Home Medications Handicap Placard #1 ea 04/08/20 [Rx Last Taken Unknown] flash glucose scanning reader (FreeStyle Tiffanie 2 [place]) #1 ea 02/16/21 [Rx Last Taken Unknown] flash glucose sensor (FreeStyle Tiffanie 2 Sensor kit) #2 ea 02/16/21 [Rx Last Taken Unknown] pen needle, diabetic 32 gauge x 5/32 (BD Ultra-Fine [place] Pen Needle) #360 ea 04/08/22 [Rx Last Taken Unknown] ferrous sulfate 325 mg (65 mg iron) tablet 325 mg PO DAILY #90 tabs 08/18/22 [Rx Last Taken 10/16/22] blood sugar diagnostic (Taste Indy Food ToursTouch Verio test strips) #100 ea 09/06/22 [Rx Last Taken Unknown] cinacalcet 30 mg tablet 30 mg PO BID #60 tabs 09/06/22 [Rx Last Taken 10/16/22] cholecalciferol (vitamin D3) 1,250 mcg (50,000 unit) capsule 1,250 mcg PO QWEEK #8 caps 09/07/22 [Rx Last Taken 10/10/22] furosemide 20 mg tablet 40 mg (2 x 20 mg) PO BID 90 days #360 tabs 09/09/22 [Rx Last Taken 10/16/22] metoprolol succinate 50 mg tablet,extended release 24 hr 50 mg PO BID BLOOD PRESSURE #180 tabs 09/21/22 [Rx Last Taken 10/16/22] clopidogrel 75 mg tablet 75 mg PO DAILY BLOOD THINNER #90 tabs 10/03/22 [Rx Last Taken 10/16/22] tramadol 50 mg tablet 50 mg PO Q6H PRN PRN Pain Score 6-10 3 days #10 tabs 10/18/22 [Rx Last Taken Unknown] acetaminophen 650 mg rectal suppository 650 mg UT Q4H PRN fever or pain 10/20/22 [History Last Taken Unknown] aluminum-magnesium hydroxide 225 mg-200 mg/5 mL oral suspension 30 ml PO DAILY PRN GI DISTRESS 10/20/22 [History Last Taken Unknown] bisacodyl 10 mg rectal suppository 10 mg UT DAILY PRN constipation 10/20/22 [History Last Taken Unknown] dextrose 40 % oral gel (Glucose Gel) 15 g PO Q15M PRN hypoglycemia 10/20/22 [History Last Taken Unknown] fenofibrate micronized 200 mg capsule 200 mg PO DAILY #30 caps 10/20/22 [Rx Last Taken Unknown] glucagon HCl 1 mg solution for injection (Glucagon (HCl) Emergency Kit) 1 mg IM Q20M PRN hypoglycemia 10/20/22 [History Last Taken Unknown] guaifenesin 200 mg/5 mL oral liquid 200 mg PO Q4H PRN congestion 10/20/22 [History Last Taken Unknown] magnesium hydroxide 400 mg/5 mL oral suspension (Milk of Magnesia) 30 ml PO DAILY PRN constipation 10/20/22 [History Last Taken Unknown] sodium phosphates 19 gram-7 gram/118 mL enema (Enema) 118 ml UT DAILY PRN constipation 10/20/22 [History Last Taken Unknown] apixaban 5 mg tablet (Eliquis) 5 mg PO BID #30 tabs 10/27/22 [Rx Last Taken Unknown] insulin glargine 100 unit/mL (3 mL) subcutaneous pen (Lantus Solostar U-100 Insulin) 7 unit (0.07 mL) subcut DAILY #15 mL 10/27/22 [Rx Last Taken Unknown] insulin regular hum U-500 conc 500 unit/mL(3 mL) subcut pen (Humulin R U-500 (Conc) Insulin Kwikpen) 10 unit (0.02 mL) subcut .TIDCM #6 mL 10/27/22 [Rx Last Taken 10/16/22] potassium chloride 20 mEq tablet,extended release(part/cryst) 20 meq PO BID potassium 90 days #540 tabs 11/09/22 [Rx Last Taken Unknown] amlodipine 10 mg tablet 10 mg PO DAILY BLOOD PRESSURE #90 tabs 11/18/22 [Rx Last Taken Unknown] losartan 25 mg tablet 25 mg PO DAILY #90 tabs 12/08/22 [Rx Last Taken Unknown] ranolazine 500 mg tablet,extended release,12 hr 500 mg PO BID #180 tabs 12/20/22 [Rx Last Taken Unknown] Ozempic 1 mg/dose (4 mg/3 mL) subcutaneous pen injector (semaglutide) 1 mg (0.75 mL) subcut QWEEK #3 mL 12/28/22 [Rx Last Taken Unknown] nitroglycerin 0.4 mg sublingual tablet See Rx Instructions .Route .COMPLEX #25 tabs 01/18/23 [Rx Last Taken Unknown] paroxetine HCl 40 mg tablet 40 mg PO DAILY depression #90 tabs 02/09/23 [Rx Last Taken Unknown] Allergy/AdvReac Type Severity Reaction Status Date / Time No Known Allergies Allergy Verified 02/26/23 01:14 Family History Mother Colon cancer Sister CAD (coronary artery disease) CABG x 5 Diabetes Myocardial infarction, Onset Age: 67 Father Crohns disease Surgical History (Updated 02/26/23 @ 01:[address] 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 Smoking Status: Never smoker second hand exposure: Yes alcohol intake: former year quit: 2003 details: Sober since 2003. substance use type: former substance user Date of last use: 04/10/2004 and marijuana caffeine: Yes Type: carbonated beverages Number of servings: 2 and coffee Number of servings: 2 what type of physical activity do you participate in: none ROS ROS ED ROS Narrative A complete review of systems was performed and is negative except as documented in the history of present illness. Some specific details below. Constitutional: No recent fevers or chills. EYE: No discharge, visual complaints, or pain. ENT: No difficulty swallowing. No swelling. No pain. No reflux symptoms. CV: No hest pain or palpitations. Respiratory: See history of present illness. GI: No abdominal pain. No nausea vomiting diarrhea. No blood in stool. : No frequency dysuria or hematuria. Musculoskeletal: No recent trauma. No pains. No new or worsening swelling. Skin: No rash. Nondiaphoretic. Neuro: No weakness or numbness. Endocrine: No polyuria or polydipsia. EXAM Physical Exam Narrative Exam Narrative: CONSTITUTIONAL: Patient is awake alert. He does have increased work of breathing. HEENT: No notable trauma. Mucous membranes moist. No sinus tenderness. No indication of pain with swallowing. EYES: No conjunctival injection. No proptosis. NECK:No JVD. No stridor. CARDIOVASCULAR: Regular rate. Regular rhythm. No notable murmur. No JVD. RESPIRATORY: Easy work of breathing. Saturations are good on 4 L of oxygen. He has basilar crackles and decreased breath sounds about mcc up. GASTROINTESTINAL: Not distended. Bowel sounds are normal. No tenderness. No guarding. No rebound. No palpable mass. No bruit is heard. GENITOURINARY: No tenderness over the bladder. No CVA tenderness. MUSCULOSKELETAL: Does have bilateral edema. NEUROLOGICAL: Patient is alert and appropriate. No focal deficit noted. SKIN: No noted rashes. No diaphoresis. PSYCHIATRIC: Patient is calm. Mood is appropriate. Const Vital Signs: 02/26/23 01:14 02/26/23 01:17 02/26/23 01:17 Temperature 97.3 F L 97.3 F L Temperature Source Temporal Temporal Pulse Rate 96 89 Respiratory Rate 24 H 32 H Respiratory Effort Respiratory Pattern Blood Pressure 202/108 H 202/108 H Blood Pressure Mean 139 139 Pulse Ox 95 96 97 Oxygen Delivery Method Nasal Cannula Nasal Cannula Nasal Cannula Oxygen Flow Rate (L/min) 4 4 4 02/26/23 01:20 02/26/23 01:56 02/26/23 01:35 Temperature Temperature Source Pulse Rate 87 Respiratory Rate 26 H Respiratory Effort Short of Breath Labored Respiratory Pattern Tachypnea Blood Pressure Blood Pressure Mean Pulse Ox Oxygen Delivery Method Nasal Cannula Nasal Cannula Oxygen Flow Rate (L/min) 4 4 MDM MDM MDM Narrative Medical decision making narrative: My independent interpretation of the patient's single view AP chest x-ray does show signs of congestion with some fluid in the major fissure on the right. Final reading is pending Final reading then shows right inferior atelectasis versus infiltrate. But I think there is increased markings on both sides and his clinical picture is more consistent with CHF. He has no fever or white count. Patient CBC shows mild anemia at 10.1. White count and platelets are normal. Platelets are normal. Electrolytes do show an acute kidney injury with a creatinine at 2.74 when his baseline appears to be closer to 1.5. Since all his symptoms are recent I think this likely is an acute change. His TSH is still normal. Patient's troponin is normal. Patient's BNP is high at 417. This is the highest we have on record for him. Since this patient is now on oxygen which is not typical for him, he has elevated creatinine, high BNP and signs of CHF I do think inpatient management is appropriate. Lab Data Labs: Laboratory Results - last 24 hr 02/26/23 01:52 WBC 9.3 RBC 3.52 L Hgb 10.1 L Hct 33.1 L MCV 94.0 MCH 28.7 MCHC 30.5 L RDW Std Deviation 55.4 H RDW Coeff of Thao 16.5 H Plt Count 267 MPV 9.2 Immature Gran % (Auto) 1.000 H Neut % (Auto) 84.1 H Lymph % (Auto) 4.4 L [place] % (Auto) 8.9 Eos % (Auto) 1.2 Baso % (Auto) 0.4 Absolute Neuts (auto) 7.9 H Absolute Lymphs (auto) 0.41 L Nucleated RBC % 0 Differential Comment SCANNED Sodium 141 Potassium 4.4 Chloride 110 H Carbon Dioxide 24.0 Anion Gap 7 BUN 54 H Creatinine 2.74 H Estim Creat Clear Calc 27.38 Est GFR (MDRD) Af Amer 30 L Est GFR (MDRD) Non-Af 25 L BUN/Creatinine Ratio 19.7 Glucose 194 H Calcium 10.4 H Troponin I High Sens 28 B-Natriuretic Peptide 417.8 H TSH 2.52 Radiography Diagnostic Testing: Clinical Impression(s) from Imaging Studies Chest X-Ray 02/26/23 02:05 IMPRESSION: Right infrahilar atelectasis versus infiltrate. Electronically Signed: Adin Estes DO at 2:53 EST , EKG Initial EKG: Comments: Been interpretation of the patient's EKG shows sinus rhythm with overall rate of 92. No noted ectopy. There are some diffuse ST and T wave changes. UT interval, QRS duration and QTc are normal. There is some very subtle lateral ST depression that is different than 27 October 2022. But patient has no chest pain pressure or discomfort. Discharge Plan Dx/Rx/DC Orders Clinical Impression: Acute kidney injury, Congestive heart failure, Hypoxia Disposition Disposition: Acute Care [facility]
[2023-02-26] MEDS: Ipratropium/Albuterol Sulfate 3 ML AMPUL.NEB INHALATION (01:35)
[2023-02-26 02:04] LABS: Absolute Lymphocyte Count 0.41 X10^3/uL (0.83-4.51); Absolute Neutrophil Count 7.9 X10^3/uL (2.0-7.7); Basophil# 0.04 X10^3/uL; Basophil% 0.4 % (0-1); Eosinophil# 0.11 X10^3/uL; Eosinophils% 1.2 % (0-5); Hematocrit 33.1 % (40-54); Hemoglobin 10.1 g/dL (13.0-16.5); Lymphocyte # 0.41 X10^3/ul (0.83-4.51); Lymphocyte % 4.4 % (19-41); Mean Corp Hgb Conc 30.5 g/dL (32-36); Mean Corpuscular Hgb 28.7 pg (27.0-32.0); Mean Platelet Vol. 9.2 fl (6.2-12.0); Monocyte# 0.83 X10^3/uL; Monocyte% 8.9 % (0-10); NRBC Flagged by Analyzer 0 % (0-5); Neutrophil # 7.86 X10^3/uL (2.7-7.7); Neutrophil % 84.1 % (47-70); POSITIVE DIFFERENTIAL YES; Platelet Count 267 K/mm3 (150-450); RBC Distribution Width CV 16.5 % (11.6-14.6); RBC Distribution Width SD 55.4 fl (35.1-43.9); Red Blood Count 3.52 M/mm3 (4.6-6.2); White Blood Count 9.3 K/mm3 (4.4-11.0)
[2023-02-26 02:05] LABS: Differential Indicated SCAN CRITERIA MET
--- NOTE | 2023-02-26 02:05 | RAD_ITS ---
INDICATION: SOB EXAMINATION/TECHNIQUE: X-RAY - XR Chest 1 View COMPARISON: 10/20/2022. FINDINGS: LINES/DEVICES: None. LUNGS: Right infrahilar atelectasis versus infiltrate. No evidence of a pleural effusion or a pneumothorax. MEDIASTINUM AND CARDIOVASCULAR STRUCTURES: Cardiac silhouette is normal in size and contour. Mediastinum is unremarkable. BONES AND SOFT TISSUES: No acute abnormality. RAD/Chest 1 View (Portable) IMPRESSION: Right infrahilar atelectasis versus infiltrate. Electronically Signed: Adin Estes DO at 2:53 EST ,
[2023-02-26] MEDS: Furosemide 40 MG/4 ML Vial IV ×3 (02:17→17:48)
[2023-02-26 02:25] LABS: BNP,B-Type NATRIURETIC PEPTIDE 417.8 pg/mL (0-100); Differential Comment SCANNED
[2023-02-26 02:29] LABS: Anion Gap 7 (5-15); BUN 54 mg/dL (7-18); BUN/Creat Ratio 19.7 RATIO (10-20); Calcium,Total 10.4 mg/dL (8.5-10.1); Chloride 110 mmol/L (98-107); Creatinine, Serum 2.74 mg/dL (0.70-1.30); EST Glomerular Filtration Rate 25 mL/min (>60); Est Glom Filt Rate - Afr Amer 30 mL/min (>60); Estimated Creatinine Clearance 27.38 ml/min; Glucose 194 mg/dL (74-106); Potassium 4.4 mmol/L (3.5-5.1); Sodium Level 141 mmol/L (136-145); Thyroid Stim Hormone (TSH) 2.52 uIU/mL (0.358-3.74); Troponin-I HS 28 pg/mL (3.0-78.0)
--- NOTE | 2023-02-26 03:11 | HP.PCM.HOS_ITS ---
HPI - General General Date of Admission: 02/26/23 Date of Service: 02/26/23 HPI Narrative ELIANE KAY, is a 67 M with a significant history of hypertension; obstructive sleep apnea; heart failure with preserved ejection fraction who presents TO THE emergency department with 1 week of shortness of breath. Thirty minutes presentation his shortness of breath XL increased. Associated symptom is fatigue. Of note patient's missed his Lasix for about 1 week since he ran out of it. Also he has not been taking his Synthroid because he ran out of it. [facility] Medical History Abnormal chest xray Acquired left ventricular hypertrophy Acute midline thoracic back pain Adult failure to thrive Anemia Anxiety and depression Arthritis Asthma Atherosclerosis of coronary artery of [place] heart without angina pectoris Atrial fibrillation Benign essential HTN Chest pain Chronic hypoxemic respiratory failure Chronic pain of both knees Chronic wound of head Colon cancer screening Congestive heart failure Dark stools Debility Depression Diabetes Dizziness MEANS (dyspnea on exertion) Dyspnea on exertion Essential (primary) hypertension Fatigue Health care maintenance History of DVT (deep vein thrombosis) History of pulmonary embolism Hypercalcemia Hyperlipidemia Hyperparathyroidism Hypertriglyceridemia Hypoxia Insomnia Morbid obesity with BMI of 40.0-44.9, adult Near syncope Obesity Olecranon bursitis FAVIAN (obstructive sleep apnea) Osteoarthritis Osteopenia Primary hyperparathyroidism Pure hypercholesterolemia Renal insufficiency Sciatica Secondary pulmonary hypertension Seizures Shortness of breath Type 2 diabetes mellitus Vertigo Vitamin D deficiency Home Medications Handicap Placard #1 ea 04/08/20 [Rx Last Taken Unknown] flash glucose scanning reader (FreeStyle Tiffanie 2 [place]) #1 ea 02/16/21 [Rx Last Taken Unknown] flash glucose sensor (FreeStyle Tiffanie 2 Sensor kit) #2 ea 02/16/21 [Rx Last Take n Unknown] pen needle, diabetic 32 gauge x 5/32 (BD Ultra-Fine [place] Pen Needle) #360 ea 04/08/22 [Rx Last Taken Unknown] ferrous sulfate 325 mg (65 mg iron) tablet 325 mg PO DAILY #90 tabs 08/18/22 [Rx Last Taken 10/16/22] blood sugar diagnostic ([employer]Touch Verio test strips) #100 ea 09/06/22 [Rx Last Taken Unknown] cinacalcet 30 mg tablet 30 mg PO BID hypercalcemia #60 tabs 09/06/22 [Rx Last Taken 10/16/22] cholecalciferol (vitamin D3) 1,250 mcg (50,000 unit) capsule 1,250 mcg PO QWEEK #8 caps 09/07/22 [Rx Last Taken 10/10/22] furosemide 20 mg tablet 40 mg (2 x 20 mg) PO BID 90 days #360 tabs 09/09/22 [Rx Last Taken 10/16/22] metoprolol succinate 50 mg tablet,extended release 24 hr 50 mg PO BID BLOOD PRESSURE #180 tabs 09/21/22 [Rx Last Taken 10/16/22] clopidogrel 75 mg tablet 75 mg PO DAILY BLOOD THINNER #90 tabs 10/03/22 [Rx Last Taken 02/25/23] tramadol 50 mg tablet 50 mg PO Q6H PRN PRN Pain Score 6-10 3 days #10 tabs 10/18/22 [Rx Last Taken Unknown] acetaminophen 650 mg rectal suppository 650 mg ID Q4H PRN fever or pain 10/20/22 [History Last Taken Unknown] aluminum-magnesium hydroxide 225 mg-200 mg/5 mL oral suspension 30 ml PO DAILY PRN GI DISTRESS 10/20/22 [History Last Taken Unknown] bisacodyl 10 mg rectal suppository 10 mg ID DAILY PRN constipation 10/20/22 [History Last Taken Unknown] dextrose 40 % oral gel (Glucose Gel) 15 g PO Q15M PRN hypoglycemia 10/20/22 [History Last Taken Unknown] fenofibrate micronized 200 mg capsule 200 mg PO DAILY cholesterol #30 caps 10/08 06/30 [Rx Last Taken Unknown] glucagon HCl 1 mg solution for injection (Glucagon (HCl) Emergency Kit) 1 mg IM Q20M PRN hypoglycemia 10/20/22 [History Last Taken Unknown] guaifenesin 200 mg/5 mL oral liquid 200 mg PO Q4H PRN congestion 10/20/22 [History Last Taken Unknown] magnesium hydroxide 400 mg/5 mL oral suspension (Milk of Magnesia) 30 ml PO DAILY PRN constipation 10/20/22 [History Last Taken Unknown] sodium phosphates 19 gram-7 gram/118 mL enema (Enema) 118 ml ID DAILY PRN constipation 10/20/22 [History Last Taken Unknown] apixaban 5 mg tablet (Eliquis) 5 mg PO BID blood thinne #30 tabs 10/27/22 [Rx Last Taken Unknown] insulin glargine 100 unit/mL (3 mL) subcutaneous pen (Lantus Solostar U-100 Insulin) 7 unit (0.07 mL) subcut DAILY #15 mL 10/27/22 [Rx Last Taken Unknown] potassium chloride 20 mEq tablet,extended release(part/cryst) 20 meq PO BID potassium 90 days #540 tabs 11/09/22 [Rx Last Taken Unknown] amlodipine 10 mg tablet 10 mg PO DAILY BLOOD PRESSURE #90 tabs 11/18/22 [Rx Last Taken 02/25/23] losartan 25 mg tablet 25 mg PO DAILY blood pressure #90 tabs 12/08/22 [Rx Last Taken Unknown] ranolazine 500 mg tablet,extended release,12 hr 500 mg PO BID chest pain #180 tabs 12/20/22 [Rx Last Taken Unknown] Ozempic 1 mg/dose (4 mg/3 mL) subcutaneous pen injector (semaglutide) 1 mg (0.75 mL) subcut QWEEK weight loss #3 mL 12/28/22 [Rx Last Taken Unknown] nitroglycerin 0.4 mg sublingual tablet See Rx Instructions .Route .COMPLEX chest pain #25 tabs 01/18/23 [Rx Last Taken Unknown] paroxetine HCl 40 mg tablet 40 mg PO DAILY depression #90 tabs 02/09/23 [Rx Last Taken Unknown] insulin regular hum U-500 conc 500 unit/mL(3 mL) subcut pen (Humulin R U-500 (Conc) Insulin Kwikpen) 30 unit subcut .TIDCM blood sugar 02/26/23 [History Last Taken 02/25/23] Allergy/AdvReac Type Severity Reaction Status Date / Time No Known Allergies Allergy Verified 02/26/23 01:14 Family History Mother Colon cancer Sister CAD (coronary artery disease) CABG x 5 Diabetes Myocardial infarction, Onset Age: 67 Father Crohns disease Surgical History History of appendectomy 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 Smoking Status: Never smoker second hand exposure: Yes alcohol intake: former year quit: 2003 details: Sober since 2003. substance use type: former substance user Date of last use: 04/10/2004 and marijuana caffeine: Yes Type: carbonated beverages Number of servings: 2 and coffee Number of servings: 2 what type of physical activity do you participate in: none ROS ROS Narrative Pertinent positives and pertinent negatives as noted in HPI. All other systems were reviewed and are negative Vital Signs Vital Signs Vital Signs: 02/26/23 01:14 02/26/23 01:17 02/26/23 01:17 Temperature 97.3 F L 97.3 F L Temperature Source Temporal Temporal Pulse Rate 96 89 Respiratory Rate 24 H 32 H Respiratory Effort Respiratory Pattern Blood Pressure 202/108 H 202/108 H Blood Pressure Mean 139 139 Pulse Ox 95 96 97 Oxygen Delivery Method Nasal Cannula Nasal Cannula Nasal Cannula Oxygen Flow Rate (L/min) 4 4 4 02/26/23 01:20 02/26/23 01:56 02/26/23 01:35 Temperature Temperature Source Pulse Rate 87 Respiratory Rate 26 H Respiratory Effort Short of Breath Labored Respiratory Pattern Tachypnea Blood Pressure Blood Pressure Mean Pulse Ox Oxygen Delivery Method Nasal Cannula Nasal Cannula Oxygen Flow Rate (L/min) 4 4 02/26/23 02:56 Temperature Temperature Source Pulse Rate Respiratory Rate Respiratory Effort Respiratory Pattern Blood Pressure Blood Pressure Mean Pulse Ox 87 Oxygen Delivery Method Room Air Oxygen Flow Rate (L/min) Weight Weight: 120.8 kg Body Mass Index (BMI) 38.2 Physical Exam Narrative Physical exam: General: Well-nourished, well-developed. Head: Normocephalic, atraumatic, no tenderness Eyes: Vision is grossly intact. EOMI ENT, no trauma, moist mucous membranes, no rhinorrhea Neck: Nontender, No thyromegaly. CVS: Regular rate and rhythm. S1-S2 present. No murmur, gallop or rub. Respiratory : clear to auscultation bilaterally, chest wall nontender Abdomen: Soft, nontender, nondistended, normal bowel sounds, no masses : Deferred Back: Nontender, no CVA tenderness, Extremities: Nontender full range of motion, no trauma Skin: Normal color, no trauma, abrasions Neuro: Alert, oriented, cranial nerves II through XII grossly intact. Psychiatry: Normal mood. Normal affect. Not depressed. Not anxious. Results Lab / Micro Data 02/26/23 01:52 02/26/23 01:52 Labs: Laboratory Results - last 24 hr 02/26/23 01:52: WBC 9.3, RBC 3.52 L, Hgb 10.1 L, Hct 33.1 L, MCV 94.0, MCH 28.7, MCHC 30.5 L, RDW Std Deviation 55.4 H, RDW Coeff of Thao 16.5 H, Plt Count 267, MPV 9.2, Immature Gran % (Auto) 1.000 H, Neut % (Auto) 84.1 H, Lymph % (Auto) 4.4 L, [place] % (Auto) 8.9, Eos % (Auto) 1.2, Baso % (Auto) 0.4, Absolute Neuts (auto) 7.9 H, Absolute Lymphs (auto) 0.41 L, Nucleated RBC % 0, Differential Comment SCANNED, Sodium 141, Potassium 4.4, Chloride 110 H, Carbon Dioxide 24.0, Anion Gap 7, BUN 54 H, Creatinine 2.74 H, Estim Creat Clear Calc 27.38, Est GFR (MDRD) Af Amer 30 L, Est GFR (MDRD) Non-Af 25 L, BUN/Creatinine Ratio 19.7, Glucose 194 H, Calcium 10.4 H, Troponin I High Sens 28, B-Natriuretic Peptide 417.8 H, TSH 2.52 Imagaing Radiology Impression Chest X-Ray 02/26/23 02:05 IMPRESSION: Right infrahilar atelectasis versus infiltrate. Electronically Signed: Adin Estes DO at 2:53 EST , Assessment & Plan Assessment/Plan (1) Heart failure with preserved ejection fraction: QUALIFIERS: Heart failure chronicity: acute on chronic Qualified Code(s): I50.33 - Acute on chronic diastolic (congestive) heart failure (2) Hypoxia: (3) Acute kidney injury: (4) Diabetes: QUALIFIERS: Diabetes mellitus fpc insulin use: with fpc use Diabetes mellitus complication status: with kidney complications Chronic kidney disease stage: stage 3 (moderate) Chronic kidney disease stage 3 subtype: stage 3a (GFR 45-59) Diabetes mellitus type: other specified (including MARIE) Diabetes mellitus complication detail: with chronic kidney disease Qualified Code(s): E13.22 - Other specified diabetes mellitus with diabetic chronic kidney disease; N18.31 - Chronic kidney disease, stage 3a; Z79.4 - 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 Agrees with Radiology interpretation. Weight on admission to the floor; and then daily Strict I&O's Emergency department labs reviewed showed BNPNof 417.8 Lasix 40 mg IV twice daily ordered. Trend BMP. Echocardiogram on 10/22/2019 showed normal EF Fluid restriction of 1500 mls daily 2 g cardiac diet CAD status post stents Cardiac cath on 10/26/2022 was reviewed. Patient patient had successful DANIEL to OM1, OM 2 and LAD. Stable. CLARA Creatinine of 2.74. Baseline creatinine is around 1.45-1.70. Likely cardiorenal syndrome. Lasix as above. Diabetes mellitus Blood glucose is not within goal. Accu-Cheks with correction scale insulin ordered. Home regimen held at this time. DVT prophylaxis Subcutaneous heparin ordered. Charges/Coding Visit Charges Inpatient E&M: 03375 Init Hosp L3
[2023-02-26] MEDS: Heparin Injection (Vial) 5,000 UNIT/ML VIAL 5000 UNIT SC ×3 (06:02→21:40)
[2023-02-26] MEDS: Insulin Lispro 100 UNIT/ML INSULN.PEN SC ×4 (06:02→21:40)
[2023-02-26 06:30] LABS: Bedside Glucose 166 mg/dL (74-106)
[2023-02-26 06:52] LABS: Absolute Lymphocyte Count 0.49 X10^3/uL (0.83-4.51); Basophil# 0.05 X10^3/uL; Basophil% 0.4 % (0-1); Eosinophil# 0.12 X10^3/uL; Hemoglobin 10.7 g/dL (13.0-16.5); Lymphocyte # 0.49 X10^3/ul (0.83-4.51); Lymphocyte % 4.1 % (19-41); Mean Corp Hgb Conc 29.7 g/dL (32-36); Mean Corpuscular Hgb 28.4 pg (27.0-32.0); Mean Corpuscular Volume 95.5 fL (80-94); Mean Platelet Vol. 9.5 fl (6.2-12.0); Monocyte# 1.17 X10^3/uL; Monocyte% 9.8 % (0-10); NRBC Flagged by Analyzer 0 % (0-5); Neutrophil # 9.99 X10^3/uL (2.7-7.7); POSITIVE DIFFERENTIAL YES; Platelet Count 317 K/mm3 (150-450); RBC Distribution Width CV 16.5 % (11.6-14.6); RBC Distribution Width SD 56.9 fl (35.1-43.9); Red Blood Count 3.77 M/mm3 (4.6-6.2); White Blood Count 11.9 K/mm3 (4.4-11.0)
[2023-02-26 06:53] LABS: Differential Indicated SCAN CRITERIA MET
[2023-02-26 07:14] LABS: Anion Gap 7 (5-15); BUN 48 mg/dL (7-18); BUN/Creat Ratio 18.5 RATIO (10-20); Calcium,Total 10.5 mg/dL (8.5-10.1); Chloride 109 mmol/L (98-107); EST Glomerular Filtration Rate 26 mL/min (>60); Est Glom Filt Rate - Afr Amer 32 mL/min (>60); Estimated Creatinine Clearance 28.86 ml/min; Glucose 168 mg/dL (74-106); Potassium 4.2 mmol/L (3.5-5.1); Sodium Level 140 mmol/L (136-145)
[2023-02-26 08:50] LABS: Differential Comment SCANNED
[2023-02-26] MEDS: Paroxetine 20 MG Tablet 40 MG PO (09:20)
[2023-02-26] MEDS: Metoprolol(XL)Succ 50 MG Tablet PO ×2 (09:20→21:40)
[2023-02-26] MEDS: APIXABAN 5 MG TABLET PO (09:20)
[2023-02-26] MEDS: amLODIPine 10 MG Tablet PO (09:20)
[2023-02-26] MEDS: Ranolazine 500 MG Tablet PO ×2 (09:20→21:40)
[2023-02-26] MEDS: Clopidogrel Bisulfate 75 MG Tablet PO (09:20)
[2023-02-26] MEDS: Cinacalcet HCl 30 MG Tablet PO ×2 (09:20→21:40)
[2023-02-26] MEDS: Fenofibrate 145 MG Tablet PO (09:21)
[2023-02-26] MEDS: Flu Vacc QS2023-24(65YR UP)/PF 240 MCG/0.7 ML Syringe IM (09:21)
[2023-02-26 11:50] LABS: Bedside Glucose 274 mg/dL (74-106)
--- NOTE | 2023-02-26 12:10 | PCM.HOSP.N ---
Hospitalist Note Patient admitted after midnight by Dr. Coleman for acute exacerbation of heart failure with preserved ejection fraction, presumed secondary to patient running out of his Lasix at home. Patient seen at bedside this morning, was sitting in bedside chair, conversing normally, no acute distress. Has started to have good urine output with IV Lasix. Remains moderately volume overloaded at this time. We will continue with IV Lasix 40 mg twice daily per Dr. Coleman's recommendations. Monitoring BMP daily, monitoring urine output. Full progress note to follow tomorrow.
[2023-02-26] MEDS: Acetaminophen 325 MG Tablet 650 MG PO ×2 (14:55→23:06)
[2023-02-26 17:03] LABS: Bedside Glucose 166 mg/dL (74-106)
--- NOTE | 2023-02-26 21:55 | PCM.PN.BLA ---
Progress Note Nurse reports that he is not on Eliquis; but on only Plavix. Patient was seen at the bedside and confirmed that he is not on Eliquis but on only Plavix at home. However patient has history of A-fib and is a candidate for Eliquis. Continue Eliquis at this time. Nursing team to check with PCP records on whether patient is on home Eliquis or not.
[2023-02-26 22:03] LABS: Bedside Glucose 174 mg/dL (74-106)
--- NOTE | 2023-02-26 22:06 | NURSING ---
Patient has Eliquis listed in home medications, however, patient states he has not been taking. MD notified, came to the floor and discussed medications with patient. After discussion, PO Eliquis discontinued, and sub-q heparin remains on MAR for DVT prophylaxsis. MD states to confirm that patient isn't to be on Eliquis with patient's PCP, Dr. Raymond the morning of February 27, 2023.
[2023-02-27] VITALS (20 sets, daily range): BP systolic 90–157; BP diastolic 60–99; PULSE 75–99; RESP 16–18; TEMP 36.1–36.9; O2SAT 94–100; BMI 37.0
[2023-02-27 04:59] LABS: Hematocrit 29.3 % (40-54); Hemoglobin 8.8 g/dL (13.0-16.5); Mean Corpuscular Hgb 28.8 pg (27.0-32.0); Mean Corpuscular Volume 95.8 fL (80-94); Mean Platelet Vol. 9.4 fl (6.2-12.0); Platelet Count 299 K/mm3 (150-450); RBC Distribution Width CV 16.4 % (11.6-14.6); RBC Distribution Width SD 56.4 fl (35.1-43.9); Red Blood Count 3.06 M/mm3 (4.6-6.2); White Blood Count 7.8 K/mm3 (4.4-11.0)
[2023-02-27 05:46] LABS: Anion Gap 8 (5-15); BUN 71 mg/dL (7-18); BUN/Creat Ratio 28.9 RATIO (10-20); Calcium,Total 10.2 mg/dL (8.5-10.1); Chloride 108 mmol/L (98-107); Creatinine, Serum 2.46 mg/dL (0.70-1.30); EST Glomerular Filtration Rate 28 mL/min (>60); Est Glom Filt Rate - Afr Amer 34 mL/min (>60); Glucose 198 mg/dL (74-106); Sodium Level 140 mmol/L (136-145)
[2023-02-27] MEDS: Insulin Lispro 100 UNIT/ML INSULN.PEN SC ×2 (06:02→12:19)
[2023-02-27] MEDS: Heparin Injection (Vial) 5,000 UNIT/ML VIAL 5000 UNIT SC (06:03)
[2023-02-27 06:28] LABS: Bedside Glucose 220 mg/dL (74-106)
[2023-02-27] MEDS: Ondansetron 4 MG/2 ML Vial IV (08:49)
[2023-02-27] MEDS: 0.9% Saline Lock 10 ML Syringe IV ×2 (08:49→16:14)
[2023-02-27] MEDS: Paroxetine 20 MG Tablet 40 MG PO (09:03)
[2023-02-27] MEDS: Cinacalcet HCl 30 MG Tablet PO ×2 (09:04→20:52)
[2023-02-27] MEDS: Metoprolol(XL)Succ 50 MG Tablet PO ×2 (09:04→20:52)
[2023-02-27] MEDS: Furosemide 40 MG/4 ML Vial IV (09:04)
[2023-02-27] MEDS: amLODIPine 10 MG Tablet PO (09:04)
[2023-02-27] MEDS: Ranolazine 500 MG Tablet PO ×2 (09:04→20:52)
[2023-02-27] MEDS: Fenofibrate 145 MG Tablet PO (09:05)
[2023-02-27] MEDS: Clopidogrel Bisulfate 75 MG Tablet PO (09:05)
--- NOTE | 2023-02-27 11:05 | CASEMGMT ---
RN FRED Face to Face with patient for initial transition planning/care coordination assessment. RN CM introduced self and role at [facility]. Patient sitting in chair, alert and oriented. Patient willing to participate in assessment and is able to answer all questions appropriately. Care providers, pharmacy, and demographics verified. Patient wishes to discharge home, denies need for home health at this time, will monitor therapy. Patient states he has no further needs or concerns at this time. CM to follow for discharge planning needs that may arise. PCP: Seg[facility] Specialists: Ross, aircraft designer; , beam saw operator; MENA, proof operator Preferred Pharmacy: [facility] at discharge Insurance: [employer] Prescription Benefit: yes Living Will/HPOA: none LNOK: brother, nephew Living Arrangements: Patient lives alone in a first floor apartment with 8 steps and railing to enter. Patient is independent at home. Transportation: hospital van, nephew DME/HHC: Patient has cane, walker pulse ox, grab bars, bipap, and home oxygen through [employer] with portability at 2lpm per patient. Patient has been to [facility] and [facility] in the past. Patient states cleary has had HHC in the past but could not recall agency. Disposition Plan: Patient to discharge home with family support and follow-up plans in place. Will monitor for HHC pending therapy. Priya SEVERINO, RN, CM
[2023-02-27] MEDS: Pantoprazole Sodium 40 MG in 0.9% Normal Saline (100mL MB+) 100 ML 330 MG IV (11:38)
[2023-02-27 12:39] LABS: Hemoglobin 7.4 g/dL (13.0-16.5)
[2023-02-27 13:25] LABS: Bedside Glucose 261 mg/dL (74-106)
[2023-02-27 15:05] LABS: Hematocrit 24.5 % (40-54); Hemoglobin 7.3 g/dL (13.0-16.5)
[2023-02-27 17:31] LABS: Bedside Glucose 295 mg/dL (74-106)
[2023-02-27] MEDS: Octreotide 0.5 MG in Dextrose 5%-Water (250mL Bag) 250 ML 12.5 MG CONT INF (17:47)
[2023-02-27] MEDS: Pantoprazole Sodium 80 MG in 0.9% Normal Saline (100mL Bag) 80 ML 10 MG CONT INF (17:48)
--- NOTE | 2023-02-27 19:14 | PCM.PN.HOSP ---
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 Patient's hemoglobin was obtained and it had dropped from 10.7 on 02/27/2020 to 8.8 this morning. I placed the patient on IV Protonix and redid his hemoglobin around 12 noon today, it was 7.4, I ordered 2 units to be typed and crossed and transfused. Patient states he has not had a history of peptic ulcer disease or gastrointestinal bleeding but he did have a history of a perforated colon 20 to 30 years ago. He states he believes it was from diverticular disease. Patient's blood pressure was slightly low this morning, I elected not to administer any fluid but I held his Lasix. Objective Data Objective Data Vital Signs: Vital Signs Temp Pulse Resp BP Pulse Ox O2 Del Method O2 Flow Rate 98.2 F 91 16 104/60 100 Nasal Cannula 2 02/27/23 19:05 02/27/23 19:05 02/27/23 19:05 02/27/23 19:05 02/27/23 19:05 02/27/23 19:05 02/27/23 19:05 Oxygen Flow Rate (L/min) 2 Oxygen Delivery Method Nasal Cannula Weight: 117 kg Body Mass Index (BMI) 37.0 Intake & Output: Intake and Output for Last 24 Hours 02/25/23 02/26/23 02/27/23 23:59 23:59 23:59 Intake Total 790 / 1150 1450 / 1450 Output Total 1800 / 2500 1999 / 1999 Balance -1010 / -1350 -550 / -550 Lab / Micro Data 02/27/23 14:53 02/27/23 04:27 Labs: Laboratory Results - last 24 hr 02/26/23 21:34: POC Glucose 174 H 02/27/23 04:27: WBC 7.8, RBC 3.06 L, Hgb 8.8 L, Hct 29.3 L, MCV 95.8 H, MCH 28.8, MCHC 30.0 L, RDW Std Deviation 56.4 H, RDW Coeff of Thao 16.4 H, Plt Count 299, MPV 9.4, Sodium 140, Potassium 4.0, Chloride 108 H, Carbon Dioxide 24.0, Anion Gap 8, BUN 71 H, Creatinine 2.46 H, Estim Creat Clear Calc 30.50, Est GFR (MDRD) Af Amer 34 L, Est GFR (MDRD) Non-Af 28 L, BUN/Creatinine Ratio 28.9 H, Glucose 198 H, Calcium 10.2 H 02/27/23 05:58: POC Glucose 220 H 02/27/23 11:55: POC Glucose 261 H 02/27/23 12:17: Hgb 7.4 L, Hct 24.0 L 02/27/23 13:15: Blood Type A POSITIVE, Antibody Screen NEGATIVE, Crossmatch See Detail 02/27/23 14:53: Hgb 7.3 L, Hct 24.5 L 02/27/23 17:10: POC Glucose 295 H Physical Exam Const alert, oriented x3 and no apparent distress General Appearance: cooperative, well kempt and well developed Orientation / Consciousness: awake, oriented to person, oriented to place and oriented to time HEENT normocephalic, head/scalp atraumatic and moist oral mucous membranes Eyes PERRL, EOMs intact bilaterally and conjunctivae normal Neck supple, no JVD, thyroid normal and no carotid bruits General: trachea midline Resp normal respiratory effort, no retractions, no use of accessory muscles and clear to auscultation bilaterally Auscultation: Negative for rales, rhonchi or wheezes Cardio S1 normal heart sound, S2 normal heart sound, no murmurs, no rub and no gallops Cardio Narrative: Heart rate and rhythm is irregular GI normal to inspection, nondistended, normoactive bowel sounds, soft to palpation, non-tender and non-distended Extremity no clubbing, cyanosis or edema Skin no rashes or lesions noted General Skin Exam: no breakdown Neuro oriented x3, CN's II-XII intact bilaterally, moves all extremities, no focal motor deficits and no sensory deficits noted Sensorium / Orientation: awake and alert Speech: speech normal Psych affect normal Assessment & Plan Assessment/Plan (1) Heart failure with preserved ejection fraction: QUALIFIERS: Heart failure chronicity: acute on chronic Qualified Code(s): I50.33 - Acute on chronic diastolic (congestive) heart failure PLAN: Plan 1. Acute on chronic congestive heart failure with preserved ejection fraction-patient's Lasix will be held at this time, patient is currently on nasal cannula oxygen at 2 L, he stated in the past he was on home O2 but it was taken out of his home. #2 hematemesis with acute anemia-patient will receive 2 units of packed red blood cells, CBC will be repeated, patient will be seen in consultation by gastroenterology, he was placed on a PPI today, it is not possible to take the patient off his antiplatelet drug due to his recent stent in October of this year #3 chronic atrial fibrillation-patient is currently not on any anticoagulation, due to his GI bleed, I will refrain from placing the patient on any anticoagulation at this time #4 hypoxia-probably secondary to congestive heart failure-pulse ox will be monitored #5 essential hypertension-patient's blood pressure will be monitored, it may be necessary to hold some of his blood pressure medications due to his hypotension earlier today #6 type 2 diabetes-patient's blood sugars will be monitored, sliding scale insulin will be administered as needed #7 noncompliance with medical regimen-patient states that he did not receive his furosemide by mail and he did not contact any of his physicians about obtaining any furosemide #8 coronary artery disease-this appears stable at this time, again patient is noncompliant with his home medications, patient is supposed to be taking Plavix and Eliquis, he was not on Eliquis. Total clinical time spent by myself addressing the patient's medical issues, reviewing all of his data, and collaborating with patient's care team: 35 minutes Charges/Coding Visit Charges Inpatient E&M: 74060 Subs Hosp L2
[2023-02-27 22:07] LABS: Bedside Glucose 243 mg/dL (74-106)
--- NOTE | 2023-02-27 23:00 | CON.PCM.GI_ITS ---
HPI Consult Data Date of Consult: 02/28/23 HPI Narrative Reason for Consultation: GI bleed HPI Narrative: ELIANE KAY, is a 67 M who presented to the ED with worsening shortness of breath. Patient states that about a week ago he started getting slightly short of breath. But it is gotten slowly worse. He is gotten a cough over the last day or so but no productivity. No fevers chills. He is not having chest pain. After extensive questioning I find out he was on Lasix but ran out about a week ago. He is not sure what his dosage was but its been as high as 40 mg twice a day. He also ran out of Synthroid but that is only been about 3 days. He cannot lay flat. No hemoptysis or sputum production. He has a past medical history of hyperparathyroidism with hypercalcemia, CKD stage III unclear subtype, Chronic normocytic anemia/iron deficiency anemia, Anxiety and Depression, CAD s/p PCI, Asthma, Hx VTE (DVT, PE), HTN, HLD, FAVIAN, Seizure disorder, Diabetes mellitus type II, PAF, recent admission for olecranon bursitis with right upper extremity pain treated with IV steroids, low-dose NSAIDs. He presented to the [facility] ED on 10/21/22 with history of intermittent chest discomfort. He had a stress test that was found to be positive and cardiology consulted. Patient ultimately had heart catheterization and had [address] aced. Echo during his admission with EF of 55 to 60% with normal LV systolic function and moderate MR with no comment on diastolic dysfunction. He tolerated cath well and plan was to discharge on Eliquis due to his A-fib and Plavix given his coronary artery disease as well as beta-robinson. I was consulted to see him due to his decrease in hemoglobin and possible hematemesis. His hemoglobin was 10.4 and a drop down to 7.4. [facility] Medical History Abnormal chest xray Acquired left ventricular hypertrophy Acute midline thoracic back pain Adult failure to thrive Anemia Anxiety and depression Arthritis Asthma Atherosclerosis of coronary artery of [place] heart without angina pectoris Atrial fibrillation Benign essential HTN Chest pain Chronic hypoxemic respiratory failure Chronic pain of both knees Chronic wound of head Colon cancer screening Congestive heart failure Dark stools Debility Depression Diabetes Dizziness MEANS (dyspnea on exertion) Dyspnea on exertion Essential (primary) hypertension Fatigue Health care maintenance History of DVT (deep vein thrombosis) History of pulmonary embolism Hypercalcemia Hyperlipidemia Hyperparathyroidism Hypertriglyceridemia Hypoxia Insomnia Morbid obesity with BMI of 40.0-44.9, adult Near syncope Obesity Olecranon bursitis FAVIAN (obstructive sleep apnea) Osteoarthritis Osteopenia Primary hyperparathyroidism Pure hypercholesterolemia Renal insufficiency Sciatica Secondary pulmonary hypertension Seizures Shortness of breath Type 2 diabetes mellitus Vertigo Vitamin D deficiency Home Medications Handicap Placard #1 ea 04/08/20 [Rx Last Taken Unknown] flash glucose scanning reader (KynetxStyle Tiffanie 2 Walker) #1 ea 02/16/21 [Rx Last Taken Unknown] flash glucose sensor (FreeStyle Tiffanie 2 Sensor kit) #2 ea 02/16/21 [Rx Last Taken Unknown] pen needle, diabetic 32 gauge x 5/32 (BD Ultra-Fine Lorie Pen Needle) #360 ea 04/08/22 [Rx Last Taken Unknown] ferrous sulfate 325 mg (65 mg iron) tablet 325 mg PO DAILY #90 tabs 08/18/22 [Rx Last Taken 10/16/22] blood sugar diagnostic (OneTouch Verio test strips) #100 ea 09/06/22 [Rx Last Taken Unknown] cinacalcet 30 mg tablet 30 mg PO BID hypercalcemia #60 tabs 09/06/22 [Rx Last Taken 10/16/22] cholecalciferol (vitamin D3) 1,250 mcg (50,000 unit) capsule 1,250 mcg PO QWEEK #8 caps 09/07/22 [Rx Last Taken 10/10/22] furosemide 20 mg tablet 40 mg (2 x 20 mg) PO BID 90 days #360 tabs 09/09/22 [Rx Last Taken 10/16/22] metoprolol succinate 50 mg tablet,extended release 24 hr 50 mg PO BID BLOOD PRESSURE #180 tabs 09/21/22 [Rx Last Taken 10/16/22] clopidogrel 75 mg tablet 75 mg PO DAILY BLOOD THINNER #90 tabs 10/03/22 [Rx Last Taken 02/25/23] tramadol 50 mg tablet 50 mg PO Q6H PRN PRN Pain Score 6-10 3 days #10 tabs 10/18/22 [Rx Last Taken Unknown] acetaminophen 650 mg rectal suppository 650 mg SC Q4H PRN fever or pain 10/20/22 [History Last Taken Unknown] aluminum-magnesium hydroxide 225 mg-200 mg/5 mL oral suspension 30 ml PO DAILY PRN GI DISTRESS 10/20/22 [History Last Taken Unknown] bisacodyl 10 mg rectal suppository 10 mg SC DAILY PRN constipation 10/20/22 [History Last Taken Unknown] dextrose 40 % oral gel (Glucose Gel) 15 g PO Q15M PRN hypoglycemia 10/20/22 [History Last Taken Unknown] fenofibrate micronized 200 mg capsule 200 mg PO DAILY cholesterol #30 caps 10/20/22 [Rx Last Taken Unknown] glucagon HCl 1 mg solution for injection (Glucagon (HCl) Emergency Kit) 1 mg IM Q20M PRN hypoglycemia 10/20/22 [History Last Taken Unknown] guaifenesin 200 mg/5 mL oral liquid 200 mg PO Q4H PRN congestion 10/20/22 [History Last Taken Unknown] magnesium hydroxide 400 mg/5 mL oral suspension (Milk of Magnesia) 30 ml PO DAILY PRN constipation 10/20/22 [History Last Taken Unknown] sodium phosphates 19 gram-7 gram/118 mL enema (Enema) 118 ml SC DAILY PRN constipation 10/20/22 [History Last Taken Unknown] apixaban 5 mg tablet (Eliquis) 5 mg PO BID blood thinne #30 tabs 10/27/22 [Rx Last Taken Unknown] insulin glargine 100 unit/mL (3 mL) subcutaneous pen (Lantus Solostar U-100 Insulin) 7 unit (0.07 mL) subcut DAILY #15 mL 10/27/22 [Rx Last Taken Unknown] potassium chloride 20 mEq tablet,extended release(part/cryst) 20 meq PO BID potassium 90 days #540 tabs 11/09/22 [Rx Last Taken Unknown] amlodipine 10 mg tablet 10 mg PO DAILY BLOOD PRESSURE #90 tabs 11/18/22 [Rx Last Taken 02/25/23] losartan 25 mg tablet 25 mg PO DAILY blood pressure #90 tabs 12/08/22 [Rx Last Taken Unknown] ranolazine 500 mg tablet,extended release,12 hr 500 mg PO BID chest pain #180 tabs 12/20/22 [Rx Last Taken Unknown] Ozempic 1 mg/dose (4 mg/3 mL) subcutaneous pen injector (semaglutide) 1 mg (0.75 mL) subcut QWEEK weight loss #3 mL 12/28/22 [Rx Last Taken Unknown] nitroglycerin 0.4 mg sublingual tablet See Rx Instructions .Route .COMPLEX chest pain #25 tabs 01/18/23 [Rx Last Taken Unknown] paroxetine HCl 40 mg tablet 40 mg PO DAILY depression #90 tabs 02/09/23 [Rx Last Taken Unknown] insulin regular hum U-500 conc 500 unit/mL(3 mL) subcut pen (Humulin R U-500 (Conc) Insulin Kwikpen) 30 unit subcut .TIDCM blood sugar 02/26/23 [History Last Taken 02/25/23] Allergy/AdvReac Type Severity Reaction Status Date / Time No Known Allergies Allergy Verified 02/26/23 01:14 Family History Mother Colon cancer Sister CAD (coronary artery disease) CABG x 5 Diabetes Myocardial infarction, Onset Age: 67 Father Crohns disease Surgical History History of appendectomy 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) History of coronary artery stent placement (10/21/22) History of eye surgery History of hip replacement History of intestinal surgery History of knee surgery History of tonsillectomy and adenoidectomy Social History household members: none housing: apartment other: Hx working in [employer] and [employer]. Smoking Status: Never smoker second hand exposure: Yes alcohol intake: former year quit: 2003 details: Sober since 2003. substance use type: former substance user Date of last use: 04/10/2004 and marijuana caffeine: Yes Type: carbonated beverages Number of servings: 2 and coffee Number of servings: 2 what type of physical activity do you participate in: none ROS ROS Narrative Admission Review of Systems: CONSTITUTIONAL: No weight loss, fever, chills, + weakness or fatigue. HEENT: Eyes: No visual loss, blurred vision, double vision or yellow sclerae. Ears, Nose, Throat: No hearing loss, sneezing, runny nose or sore throat. SKIN: No rash or itching, lesions, wounds. CARDIOVASCULAR: + chest pain, chest pressure or chest discomfort, palpitations, edema, orthopnea. No syncopal events. RESPIRATORY: + shortness of breath, No cough or sputum, wheezing, hemoptysis. GASTROINTESTINAL: No anorexia, nausea, emesis, diarrhea, abdominal pain, melena, BRBPR. GENITOURINARY: No dysuria, frequency, urgency or retention. NEUROLOGICAL: No dizziness, headache, syncope, paralysis, ataxia, numbness or tingling in the extremities, focal weakness, change in bowel or bladder control, seizure. MUSCULOSKELETAL: + muscle, back pain, joint pain or stiffness. HEMATOLOGIC: + anemia, bleeding or bruising. LYMPHATICS: No enlarged nodes. No history of splenectomy. PSYCHIATRIC: + history of depression or anxiety. ENDOCRINOLOGIC: No reports of sweating, cold or heat intolerance. No polyuria or polydipsia. ALLERGIES: No history of asthma, hives, eczema or rhinitis. Physical Exam Const alert, oriented x3 and no apparent distress General Appearance: cooperative, well kempt and well developed Orientation / Consciousness: awake, oriented to person, oriented to place and oriented to time HEENT normocephalic, head/scalp atraumatic and moist oral mucous membranes Eyes PERRL, EOMs intact bilaterally and conjunctivae normal Neck supple, no JVD, thyroid normal and no carotid bruits General: trachea midline Resp normal respiratory effort, no retractions, no use of accessory muscles and clear to auscultation bilaterally Auscultation: Negative for rales, rhonchi or wheezes Cardio S1 normal heart sound, S2 normal heart sound, no murmurs, no rub and no gallops Cardio Narrative: Heart rate and rhythm is irregular GI normal to inspection, nondistended, normoactive bowel sounds, soft to palpation, non-tender and non-distended Extremity no clubbing, cyanosis or edema Skin no rashes or lesions noted General Skin Exam: no breakdown Neuro oriented x3, CN's II-XII intact bilaterally, moves all extremities, no focal motor deficits and no sensory deficits noted Sensorium / Orientation: awake and alert Speech: speech normal Psych affect normal Lab / Micro Data 02/28/23 04:17 02/28/23 04:17 Labs: Laboratory Results - last 24 hr 02/27/23 11:55: POC Glucose 261 H 02/27/23 12:17: Hgb 7.4 L, Hct 24.0 L 02/27/23 13:15: Blood Type A POSITIVE, Antibody Screen NEGATIVE, Crossmatch See Detail 02/27/23 14:53: Hgb 7.3 L, Hct 24.5 L 02/27/23 17:10: POC Glucose 295 H 02/27/23 20:51: POC Glucose 243 H 02/28/23 04:17: WBC 12.0 H, RBC 3.01 L, Hgb 8.6 L, Hct 27.7 L, MCV 92.0, MCH 28.6, MCHC 31.0 L, RDW Std Deviation 58.5 H, RDW Coeff of Thao 18.0 H, Plt Count 276, MPV 9.3, Immature Gran % (Auto) 1.100 H, Neut % (Auto) 83.6 H, Lymph % (Auto) 5.2 L, [place] % (Auto) 9.7, Eos % (Auto) 0.2, Baso % (Auto) 0.2, Absolute Neuts (auto) 10.1 H, Absolute Lymphs (auto) 0.63 L, Nucleated RBC % 0.3, PT 41.4 H, INR 4.2 H*, APTT 28.9, Sodium 142, Potassium 4.0, Chloride 110 H, Carbon Dioxide 23.0, Anion Gap 9, BUN 123 H*, Creatinine 2.98 H, Estim Creat Clear Calc 25.18, Est GFR (MDRD) Af Amer 27 L, Est GFR (MDRD) Non-Af 23 L, BUN/Creatinine Ratio 41.3 H, Glucose 223 H, Calcium 9.6, AST 92 H, ALT 82 H Assessment & Plan Assessment/Plan (1) Acute on chronic anemia: (2) GI bleed: QUALIFIERS: GI bleed type/associated pathology: unspecified gastrointestinal hemorrhage type Qualified Code(s): K92.2 - Gastrointestinal hemorrhage, unspecified PLAN: Plan 67-year-old gentleman with congestive heart failure, FVAIAN, atrial fibrillation on anticoagulation with acute blood loss anemia likely secondary to upper GI bleed. Recommend to check his INR continued on heparin and antiplatelet therapy. Correct INR if it is greater than 2.5 due to upper GI bleed. I will start him on octreotide and PPI drip. He will need to undergo an upper endoscopy. He was explained alternatives, risk, benefits including outstanding bleeding, infection, sepsis, perforation, need for more discharge and . He will have an ASA of 3. Charges/Coding Visit Charges Inpatient E&M: 51548 Init Hosp L3
[2023-02-28] VITALS (15 sets, daily range): BP systolic 112–136; BP diastolic 68–88; PULSE 77–86; RESP 16–18; TEMP 36.4–36.9; O2SAT 80–100; BMI 36.7
[2023-02-28] MEDS: Pantoprazole Sodium 80 MG in 0.9% Normal Saline (100mL Bag) 80 ML 10 MG CONT INF ×3 (03:13→22:04)
[2023-02-28 04:30] LABS: Absolute Lymphocyte Count 0.63 X10^3/uL (0.83-4.51); Absolute Neutrophil Count 10.1 X10^3/uL (2.0-7.7); Basophil# 0.02 X10^3/uL; Basophil% 0.2 % (0-1); Eosinophil# 0.02 X10^3/uL; Eosinophils% 0.2 % (0-5); Hematocrit 27.7 % (40-54); Hemoglobin 8.6 g/dL (13.0-16.5); Lymphocyte # 0.63 X10^3/ul (0.83-4.51); Lymphocyte % 5.2 % (19-41); Mean Corpuscular Hgb 28.6 pg (27.0-32.0); Mean Platelet Vol. 9.3 fl (6.2-12.0); Monocyte# 1.16 X10^3/uL; Monocyte% 9.7 % (0-10); NRBC Flagged by Analyzer 0.3 % (0-5); Neutrophil # 10.05 X10^3/uL (2.7-7.7); Neutrophil % 83.6 % (47-70); Platelet Count 276 K/mm3 (150-450); RBC Distribution Width SD 58.5 fl (35.1-43.9); Red Blood Count 3.01 M/mm3 (4.6-6.2)
[2023-02-28 04:47] LABS: Prothrombin Time (Protime)PT. 41.4 SECONDS (11.7-14.9)
[2023-02-28 04:48] LABS: Partial Thromboplast Time 28.9 Seconds (24.1-36.2)
[2023-02-28 04:53] LABS: AST(SGOT) 92 U/L (15-37)
[2023-02-28 04:58] LABS: Alanine Aminotransfer ALT/SGPT 82 U/L (16-61); Anion Gap 9 (5-15); BUN 123 mg/dL (7-18); BUN/Creat Ratio 41.3 RATIO (10-20); Calcium,Total 9.6 mg/dL (8.5-10.1); Chloride 110 mmol/L (98-107); Creatinine, Serum 2.98 mg/dL (0.70-1.30); EST Glomerular Filtration Rate 23 mL/min (>60); Est Glom Filt Rate - Afr Amer 27 mL/min (>60); Estimated Creatinine Clearance 25.18 ml/min; Glucose 223 mg/dL (74-106); Sodium Level 142 mmol/L (136-145)
[2023-02-28 05:02] LABS: International Normalized Ratio 4.2
[2023-02-28] MEDS: Phytonadione (Vit K) 10 MG in 0.9% Normal Saline (50mL Bag) 50 ML 150 MG IV (06:09)
[2023-02-28] MEDS: Lactated Ringers 1,000 ML 15 ML IV (07:01)
[2023-02-28 07:19] LABS: Bedside Glucose 193 mg/dL (74-106)
--- NOTE | 2023-02-28 07:33 | OP.EGD_ITS ---
Patient Name: Shade Teixeira Procedure Date: 02/28/2023 7:03 AM Date of : 1955 Age: 67 Procedure: Upper GI endoscopy Indications: Hematemesis Providers: Louie Gonzales DO Medicines: Monitored Anesthesia Care Patient Profile: This is a 67 year old male. Refer to note in patient chart for documentation of history and physical. Patient has symptoms of acute vomiting. Complications: No immediate complications. Procedure: Pre-Anesthesia Assessment: - Prior to the procedure, a History and Physical was performed, and patient medications and allergies were reviewed. The patient is competent. The risks and benefits of the procedure and the sedation options and risks were discussed with the patient. All questions were answered and informed consent was obtained. Patient identification and proposed procedure were verified by the physician. Mental Status Examination: normal. Prophylactic Antibiotics: The patient does not require prophylactic antibiotics. Prior Anticoagulants: The patient has taken no anticoagulant or antiplatelet agents. ASA Grade Assessment: IV - A patient with severe systemic disease that is a constant threat to life. After reviewing the risks and benefits, the patient was deemed in satisfactory condition to undergo the procedure. The anesthesia plan was to use monitored anesthesia care (MAC). Immediately prior to administration of medications, the patient was re-assessed for adequacy to receive sedatives. The heart rate, respiratory rate, oxygen saturations, blood pressure, adequacy of pulmonary ventilation, and response to care were monitored throughout the procedure. The physical status of the patient was re-assessed after the procedure. After obtaining informed consent, the endoscope was passed under direct vision. Throughout the procedure, the patient's blood pressure, pulse, and oxygen saturations were monitored continuously. The gastroscope was introduced through the mouth, and advanced to the second part of duodenum. The upper GI endoscopy was accomplished without difficulty. The patient tolerated the procedure well. Scope In: 7:18:17 AM Scope Out: 7:25:51 AM Total Procedure Duration Time 0 hours 7 minutes 34 seconds Findings: There were esophageal mucosal changes suggestive of Tuttle's esophagus present in the lower third of the esophagus. The maximum longitudinal extent of these mucosal changes was 4 cm in length. A small hiatal hernia was present. A large amount of food (residue) was found in the gastric body. Hematin (altered blood/rgoabj-hjtrwl-ygua material) was found in the gastric body. One oozing cratered gastric ulcer with a visible vessel was found in the gastric antrum. The lesion was 6 mm in largest dimension. Area was successfully injected with 5 mL of a 0.1 mg/mL solution of epinephrine for drug delivery. Coagulation for hemostasis using heater probe was successful. Estimated blood loss was minimal. No gross lesions were noted in the second portion of the duodenum. 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 - Small hiatal hernia. - A large amount of food (residue) in the stomach. - Hematin (altered blood/ehztvi-oklmtj-nvnx material) in the gastric body. - Oozing gastric ulcer with a visible vessel. Injected. Treated with a heater probe. - No gross lesions in the second portion of the duodenum. - No specimens collected. Recommendation: - Return patient to [facility] for [facility] care. - Clear liquid diet today. - Continue present medications. - Use azithromycin 1 g x 1 dose -Metoclopramide 10 mg IV every 6 hours x 24 hours -These medicines are to clear out his stomach and we will repeat his endoscopy tomorrow so we can fully visualize the entire stomach Procedure Code(s): --- Professional --- 55308, Esophagogastroduodenoscopy, flexible, transoral; with control of bleeding, any method 32228, 59,51, Esophagogastroduodenoscopy, flexible, transoral; with directed submucosal injection(s), any substance CPT copyright 2021 [employer]. All rights reserved. The codes documented in this report are preliminary and upon professor of music review may be revised to meet current compliance requirements. Louie Gonzales DO 02/28/2023 7:32:38 AM This report has been signed electronically. Number of Addenda: 0 Note Initiated On: 02/28/2023 7:03 AM
[2023-02-28 07:40] LABS: Hemoglobin A1c 5.9 % (3.8-5.6)
[2023-02-28] MEDS: Fenofibrate 145 MG Tablet PO (10:26)
[2023-02-28] MEDS: Furosemide 40 MG/4 ML Vial IV ×2 (10:26→17:12)
[2023-02-28] MEDS: Paroxetine 20 MG Tablet 40 MG PO (10:26)
[2023-02-28] MEDS: Metoprolol(XL)Succ 50 MG Tablet PO ×2 (10:26→22:04)
[2023-02-28] MEDS: Clopidogrel Bisulfate 75 MG Tablet PO (10:27)
[2023-02-28] MEDS: Cinacalcet HCl 30 MG Tablet PO ×2 (10:27→22:04)
[2023-02-28] MEDS: Ranolazine 500 MG Tablet PO ×2 (10:27→22:04)
[2023-02-28] MEDS: Azithromycin 500 MG in Dextrose 5%-Water (250mL Bag) 250 ML 250 MG IV (10:34)
[2023-02-28] MEDS: Insulin Lispro 100 UNIT/ML INSULN.PEN SC ×3 (10:39→22:04)
[2023-02-28] MEDS: Ondansetron 4 MG/2 ML Vial IV (11:01)
[2023-02-28 11:36] LABS: Bedside Glucose 207 mg/dL (74-106)
[2023-02-28] MEDS: Octreotide 0.5 MG in Dextrose 5%-Water (250mL Bag) 250 ML 12.5 MG CONT INF (12:26)
[2023-02-28 17:30] LABS: Bedside Glucose 196 mg/dL (74-106)
--- NOTE | 2023-02-28 18:25 | NURSING ---
Reviewed charting with Ton Lambert RN
--- NOTE | 2023-02-28 19:43 | PCM.PN.HOSP ---
Reason for Visit Reason for Visit: Diagnoses Anemia, unspecified (02/26/23) Other specified diabetes mellitus with diabetic chronic kidney disease (02/26/23) Acute on chronic diastolic (congestive) heart failure (02/26/23) Gastrointestinal hemorrhage, unspecified (02/26/23) Acute kidney failure, unspecified (02/26/23) Chronic kidney disease, stage 3a (02/26/23) Hypoxemia (02/26/23) half-way (current) use of insulin (02/26/23) Subjective Subjective Patient was seen and examined today, his hemoglobin this morning was 8.6, he is still on supplemental oxygen at 2 L. 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 Objective Data Objective Data Vital Signs: Vital Signs Temp Pulse Resp BP Pulse Ox O2 Del Method O2 Flow Rate 97.8 F 78 16 124/68 H 100 Nasal Cannula 2 02/28/23 17:07 02/28/23 17:07 02/28/23 17:07 02/28/23 17:07 02/28/23 17:07 02/28/23 17:38 02/28/23 17:38 Oxygen Flow Rate (L/min) 2 Oxygen Delivery Method Nasal Cannula Weight: 116.2 kg Body Mass Index (BMI) 36.7 Intake & Output: Intake and Output for Last 24 Hours 02/26/23 02/27/23 02/28/23 23:59 23:59 23:59 Intake Total 790 / 1150 1451 / 1452 1476.47 / 1476.47 Output Total 1800 / 2500 1999 / 1999 1700 / 1700 Balance -1010 / -1350 -549 / -548 -223.53 / -223.53 Lab / Micro Data 02/28/23 04:17 03/01/23 05:55 Labs: Laboratory Results - last 24 hr 02/27/23 13:15: Blood Type A POSITIVE, Antibody Screen NEGATIVE, Crossmatch See Detail 02/27/23 20:51: POC Glucose 243 H 02/28/23 04:17: WBC 12.0 H, RBC 3.01 L, Hgb 8.6 L, Hct 27.7 L, MCV 92.0, MCH 28.6, MCHC 31.0 L, RDW Std Deviation 58.5 H, RDW Coeff of Thao 18.0 H, Plt Count 276, MPV 9.3, Immature Gran % (Auto) 1.100 H, Neut % (Auto) 83.6 H, Lymph % (Auto) 5.2 L, [place] % (Auto) 9.7, Eos % (Auto) 0.2, Baso % (Auto) 0.2, Absolute Neuts (auto) 10.1 H, Absolute Lymphs (auto) 0.63 L, Nucleated RBC % 0.3, PT 41.4 H, INR 4.2 H*, APTT 28.9, Sodium 142, Potassium 4.0, Chloride 110 H, Carbon Dioxide 23.0, Anion Gap 9, BUN 123 H*, Creatinine 2.98 H, Estim Creat Clear Calc 25.18, Est GFR (MDRD) Af Amer 27 L, Est GFR (MDRD) Non-Af 23 L, BUN/Creatinine Ratio 41.3 H, Glucose 223 H, Hemoglobin A1c 5.9 H, Calcium 9.6, AST 92 H, ALT 82 H 02/28/23 06:14: POC Glucose 193 H 02/28/23 10:33: POC Glucose 207 H 02/28/23 17:08: POC Glucose 196 H Physical Exam Narrative alert, oriented x3 and no apparent distress General Appearance: cooperative, well kempt and well developed Orientation / Consciousness: awake, oriented to person, oriented to place and oriented to time HEENT normocephalic, head/scalp atraumatic and moist oral mucous membranes Eyes PERRL, EOMs intact bilaterally and conjunctivae normal Neck supple, no JVD, thyroid normal and no carotid bruits General: trachea midline Resp normal respiratory effort, no retractions, no use of accessory muscles and clear to auscultation bilaterally Auscultation: Negative for rales, rhonchi or wheezes Cardio S1 normal heart sound, S2 normal heart sound, no murmurs, no rub and no gallops Cardio Narrative: Heart rate and rhythm is irregular GI normal to inspection, nondistended, normoactive bowel sounds, soft to palpation, non-tender and non-distended Extremity no clubbing, cyanosis or edema Skin no rashes or lesions noted General Skin Exam: no breakdown Neuro oriented x3, CN's II-XII intact bilaterally, moves all extremities, no focal motor deficits and no sensory deficits noted Sensorium / Orientation: awake and alert Speech: speech normal Psych affect normal Assessment & Plan Assessment/Plan (1) GI bleed: QUALIFIERS: GI bleed type/associated pathology: unspecified gastrointestinal hemorrhage type Qualified Code(s): K92.2 - Gastrointestinal hemorrhage, unspecified (2) Heart failure with preserved ejection fraction: QUALIFIERS: Heart failure chronicity: acute on chronic Qualified Code(s): I50.33 - Acute on chronic diastolic (congestive) heart failure PLAN: Plan 1. Acute on chronic congestive heart failure with preserved ejection fraction-patient's Lasix will be resumed at this time, patient is currently on nasal cannula oxygen at 2 L, he stated in the past he was on home portable O2 but it was taken out of his home. Patient states however he still has an oxygen concentrator, I checked with case management and they state patient has a prescription for oxygen at bedtime. #2 acute upper GI bleed requiring blood transfusion-from gastric ulcer-again this was treated today by GI #3 chronic atrial fibrillation-patient is currently not on any anticoagulation, due to his GI bleed, I will refrain from placing the patient on any anticoagulation at this time #4 hypoxia-probably secondary to congestive heart failure-pulse ox will be monitored #5 essential hypertension-patient's blood pressure will be monitored, it may be necessary to hold some of his blood pressure medications due to his hypotension earlier today #6 type 2 diabetes-patient's blood sugars will be monitored, sliding scale insulin will be administered as needed #7 noncompliance with medical regimen-patient states that he did not receive his furosemide by mail and he did not contact any of his physicians about obtaining any furosemide #8 coronary artery disease-this appears stable at this time, again patient is noncompliant with his home medications, patient is supposed to be taking Plavix and Eliquis, he was not on Eliquis. Total clinical time spent by myself addressing the patient's medical issues, reviewing all of his data, and collaborating with patient's care team: 35 minutes Charges/Coding Visit Charges Inpatient E&M: 44926 Subs Hosp L2
[2023-02-28] MEDS: Acetaminophen 325 MG Tablet 650 MG PO (20:21)
[2023-02-28 22:33] LABS: Bedside Glucose 202 mg/dL (74-106)
[2023-03-01] VITALS (17 sets, daily range): BP systolic 76–131; BP diastolic 57–95; PULSE 71–90; RESP 16–18; TEMP 36.3–36.8; O2SAT 89–100; BMI 36.6
[2023-03-01 07:03] LABS: International Normalized Ratio 1.2; Partial Thromboplast Time 21.1 Seconds (24.1-36.2); Prothrombin Time (Protime)PT. 15.5 SECONDS (11.7-14.9)
[2023-03-01 07:05] LABS: Alanine Aminotransfer ALT/SGPT 137 U/L (16-61); Anion Gap 5 (5-15); BUN 104 mg/dL (7-18); BUN/Creat Ratio 36.1 RATIO (10-20); Calcium,Total 9.7 mg/dL (8.5-10.1); Chloride 112 mmol/L (98-107); Creatinine, Serum 2.88 mg/dL (0.70-1.30); EST Glomerular Filtration Rate 23 mL/min (>60); Est Glom Filt Rate - Afr Amer 28 mL/min (>60); Estimated Creatinine Clearance 26.05 ml/min; Glucose 153 mg/dL (74-106); Potassium 3.3 mmol/L (3.5-5.1); Sodium Level 144 mmol/L (136-145)
[2023-03-01 07:07] LABS: AST(SGOT) 111 U/L (15-37)
[2023-03-01 07:12] LABS: Bedside Glucose 150 mg/dL (74-106)
[2023-03-01] MEDS: Octreotide 0.5 MG in Dextrose 5%-Water (250mL Bag) 250 ML 12.5 MG CONT INF (08:07)
[2023-03-01] MEDS: Pantoprazole Sodium 80 MG in 0.9% Normal Saline (100mL Bag) 80 ML 10 MG CONT INF (08:08)
[2023-03-01 08:43] LABS: Absolute Lymphocyte Count 0.63 X10^3/uL (0.83-4.51); Absolute Neutrophil Count 9.1 X10^3/uL (2.0-7.7); Basophil# 0.05 X10^3/uL; Basophil% 0.4 % (0-1); Eosinophil# 0.12 X10^3/uL; Eosinophils% 1.1 % (0-5); Hematocrit 26.5 % (40-54); Hemoglobin 8.2 g/dL (13.0-16.5); Lymphocyte # 0.63 X10^3/ul (0.83-4.51); Lymphocyte % 5.6 % (19-41); Mean Corp Hgb Conc 30.9 g/dL (32-36); Mean Corpuscular Hgb 28.8 pg (27.0-32.0); Mean Platelet Vol. 9.6 fl (6.2-12.0); Monocyte# 1.27 X10^3/uL; Monocyte% 11.2 % (0-10); NRBC Flagged by Analyzer 0.4 % (0-5); Neutrophil # 9.09 X10^3/uL (2.7-7.7); Neutrophil % 80.4 % (47-70); Platelet Count 303 K/mm3 (150-450); RBC Distribution Width CV 18.5 % (11.6-14.6); RBC Distribution Width SD 61.5 fl (35.1-43.9); Red Blood Count 2.85 M/mm3 (4.6-6.2); White Blood Count 11.3 K/mm3 (4.4-11.0)
[2023-03-01] MEDS: Acetaminophen 325 MG Tablet 650 MG PO ×2 (09:03→16:42)
[2023-03-01] MEDS: Ranolazine 500 MG Tablet PO ×2 (09:04→21:33)
[2023-03-01] MEDS: Furosemide 40 MG/4 ML Vial IV (09:04)
[2023-03-01] MEDS: Fenofibrate 145 MG Tablet PO (09:04)
[2023-03-01] MEDS: Paroxetine 20 MG Tablet 40 MG PO (09:04)
[2023-03-01] MEDS: Cinacalcet HCl 30 MG Tablet PO ×2 (09:04→21:33)
[2023-03-01] MEDS: Clopidogrel Bisulfate 75 MG Tablet PO (09:04)
[2023-03-01] MEDS: Metoprolol(XL)Succ 50 MG Tablet PO ×2 (09:04→21:33)
[2023-03-01 11:32] LABS: Bedside Glucose 162 mg/dL (74-106)
--- NOTE | 2023-03-01 12:05 | IMM_PTH ---
PATIENT: ELIANE KAY LOC: [facility] U#:[id number] AGE/SX: 67/M ROOM: [facility] RE02/26/[address]: Dr. Cornelia Burns DO : 1955 BED: 1 DIS: 03/03/2023 SPEC #: [id number] RECD: 03/03/23 13:16 STATUS: ESTRELLITA REQ #: [id number] PATRICIO: 03/01/23 12:[address]: Ra Janethsaan DEPT: IMMUNOHISTOCHEMISTRY RECD BY: Lupe Smith ENTERED: 03/03/23 13:17 SP TYPE: IMMUNO OTHR DR: DO Dr. Mery Espinoza MD Dr. Joseph Agyepong, MD Dr. Kathryn Lee, DO Dr. Mark Tereletsky, DO Tissues: A - Stomach, NOS B - Stomach, NOS Procedures: H Pylori (initial) PHYSICIAN & INSTITUTION [place] [address] SPECIMEN INFORMATION: Tissue Source: A - Gastric body, B - Gastric ulcer Clinical Info: GI bleed Specimen Number: [id number] A & B CPT code: 16137 x2 METHODOLOGY: Deparaffinized sections of prefer/formalin-fixed tissue or PAP/DQ stained slides are incubated with monoclonal/polyclonal antibodies/oligonucleotide probes. Localization is made via biotin free immunoperoxidase method. Appropriate controls are performed and reacted as expected. Results on target cell population are indicated in the following table: RESULTS: ANTIBODY / CLONE RESULT Block A H Pylori (polyclonal) negative Block B H Pylori (polyclonal) negative These tests were developed and their performance characteristics determined by [facility]. They may not have been cleared or approved by the U.S. Food and Drug Administration. The FDA has determined that such clearance or approval is not necessary. The above immunohistochemical/dualISH markers are ordered and reviewed by the Pathologist. INTERPRETATION: A. Gastric body, biopsy: Negative for Helicobacter pylori organisms. B. Gastric ulcer, biopsy: Negative for Helicobacter pylori organisms. AM:dillan 03/06/2023
--- NOTE | 2023-03-01 12:05 | IMM_PTH ---
PATIENT: ELIANE KAY LOC: [facility] U#:[id number] AGE/SX: 67/M ROOM: [facility] RE02/26/[address]: Dr. Cornelia Burns DO : 1955 BED: 1 DIS: 03/03/2023 SPEC #: [id number] RECD: 03/03/23 13:16 STATUS: ESTRELLITA REQ #: [id number] PATRICIO: 03/01/23 12:[address]: Ra Janethsaan DEPT: IMMUNOHISTOCHEMISTRY RECD BY: Lupe Smith ENTERED: 03/03/23 13:17 SP TYPE: IMMUNO OTHR DR: DO Dr. Mery Espinoza MD Dr. Joseph Agyepong, MD Dr. Kathryn Lee, DO Dr. Mark Tereletsky, DO Tissues: A - Stomach, NOS B - Stomach, NOS C - Esophagus, NOS Procedures: H Pylori (initial) P53 (initial) KI-67 (add) MOC-31 (add) PHYSICIAN & [address] [address] SPECIMEN INFORMATION: Tissue Source: A - Gastric body, B - Gastric ulcer, C - Distal esophagus Clinical Info: GI bleed Specimen Number: [id number] A-[id number] CPT code: 60354 x3, 57749 x2 METHODOLOGY: Deparaffinized sections of prefer/formalin-fixed tissue or PAP/DQ stained slides are incubated with monoclonal/polyclonal antibodies/oligonucleotide probes. Localization is made via biotin free immunoperoxidase method. Appropriate controls are performed and reacted as expected. Results on target cell population are indicated in the following table: RESULTS: ANTIBODY / CLONE RESULT Block A H Pylori (polyclonal) negative Block B H Pylori (polyclonal) negative Block C P53 (DO-7) positive, wild type pattern Ki-67 (30-9) positive, low MOC-31 (4561) positive These tests were developed and their performance characteristics determined by [facility]. They may not have been cleared or approved by the U.S. Food and Drug Administration. The FDA has determined that such clearance or approval is not necessary. The above immunohistochemical/dualISH markers are ordered and reviewed by the Pathologist. INTERPRETATION: A. Gastric body, biopsy: Negative for Helicobacter pylori organisms. B. Gastric ulcer, biopsy: Negative for Helicobacter pylori organisms. C. Distal esophagus, biopsy: No evidence of dysplasia. AM:dillan 03/06/2023 AM:dillan 03/07/2023
--- NOTE | 2023-03-01 12:05 | EGD_PTH ---
PATIENT: ELIANE KAY LOC: [facility] U#:[id number] AGE/SX: 67/M ROOM: [facility] RE02/26/[address]: Dr. Cornelia Burns DO : 1955 BED: 1 DIS: 03/03/2023 SPEC #: [id number] RECD: 03/01/23 17:56 STATUS: ESTRELLITA RE #: [id number] PATRICIO: 03/01/23 12:[address]: Louie Gonzales DEPT: SURGICAL PATHOLOGY RECD BY: Kaila Mishra ENTERED: 03/03/23 14:44 SP TYPE: EGD BIOPSY OTHR DR: DO Dr. Mery Espinoza MD Dr. Joseph Agyepong, MD Dr. Kathryn Lee, DO Dr. Mark Tereletsky, DO Tissues: A - Gastric mucous membrane B - Gastric mucous membrane C - Esophagus, NOS Procedures: Special Stain Group II Surgery Specimen Level IV Alcian Blue/PAS (control) Comments: @ Ordering doctor for SUIV edited from to @ by RGOOD at 03/03/23 153 @ Submitting doctor edited from to @ by RGOOD at 03/03/23 1532 HEADER OPERATION: EGD with biopsies and bipolar cautery PRE-OP DIAGNOSIS: GI bleed TISSUE SUBMITTED: A - Gastric body biopsy, B - Gastric ulcer biopsy, C - Distal esophagus biopsy MICROSCOPIC DIAGNOSIS A. Gastric body, biopsy: Chronic active gastritis. See comment. B. Gastric ulcer, biopsy: Ulceration with associated acute and chronic inflammation and fibrinopurulent material. See comment. C. Distal esophagus, biopsy: Gastroesophageal junctional mucosa with mild chronic inflammation. Focal goblet cell metaplasia consistent with Tuttle's esophagus. No evidence of dysplasia. See comment. AM:dillan 03/06/2023 COMMENT A & B. The results of immunohistochemistry for Helicobacter pylori will be reported separately ([id number]). C. Alcian blue/PAS stain with matched control supports the above diagnosis. Immunohistochemistry ([id number]) for P53 and Ki-67 will be performed and results will be reported separately. MICROSCOPIC DESCRIPTION Slides are reviewed. GROSS DESCRIPTION A - Received in fixative is one container labeled with the patient's name and designated gastric body biopsy. The specimen consists of two irregular fragments of light mejia soft tissue that in aggregate measure 0.8 x 0.5 x 0.1 cm. The specimen is totally submitted in one cassette. B - Received in fixative is one container labeled with the patient's name and designated gastric ulcer. The specimen consists of multiple irregular fragments of light mejia soft tissue that in aggregate measure 1.0 x 0.2 x 0.1 cm. The specimen is totally submitted in one cassette. C - Received in fixative is one container labeled with the patient's name and designated distal esophagus. The specimen consists of multiple irregular fragments of light mejia soft tissue that in aggregate measure 1.0 x 0.2 x 0.1 cm. The specimen is totally submitted in one cassette. / AM:dillan 03/03/2023 TC:2 [facility]: [address] x3, [address]
[2023-03-01] MEDS: Lactated Ringers 1,000 ML 15 ML IV (14:54)
--- NOTE | 2023-03-01 15:53 | OP.CCLET_ITS ---
03/01/2023 Mery Raymond MD [address] [place] [address] [place] [address] Re : Upper GI endoscopy procedure for Shade Teixeira Dear Dr. Raymond This procedure was performed on Wednesday, March 01, 2023. 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 Biopsied. - Oozing gastric ulcers with pigmented material. Treated with a heater probe. - Gastritis. Biopsied. - Oozing gastric ulcer with a visible vessel. Injected. Treated with a heater probe. Biopsied. - Normal second portion of the duodenum. Recommendations : - [facility] to [facility] care. - Full liquid diet. - Continue present medications. - Use Protonix (pantoprazole) 40 mg PO BID for 11 months. - Use sucralfate tablets 1 gram PO BID for 2 months. My findings are described in the full procedure note, which is enclosed. If I can be of further assistance, please feel free to contact me at . Sincerely, Louie Gonzales, 03/01/2023 3:53:06 PM This report has been signed electronically.
--- NOTE | 2023-03-01 15:53 | OP.EGD_ITS ---
Patient Name: Shade Teixeira Procedure Date: 03/01/2023 3:17 PM Date of : 1955 Age: 67 Procedure: Upper GI endoscopy Indications: Iron deficiency anemia, Hematemesis Providers: Louie Gonzales DO Medicines: Monitored Anesthesia Care Patient Profile: This is a 67 year old male. Refer to note in patient chart for documentation of history and physical. Patient has symptoms of acute epigastric abdominal pain. Complications: No immediate complications. Procedure: Pre-Anesthesia Assessment: - Prior to the procedure, a History and Physical was performed, and patient medications and allergies were reviewed. The patient is competent. The risks and benefits of the procedure and the sedation options and risks were discussed with the patient. All questions were answered and informed consent was obtained. Patient identification and proposed procedure were verified by the physician in the pre-procedure area. Mental Status Examination: alert and oriented. Airway Examination: normal oropharyngeal airway and neck mobility. Respiratory Examination: clear to auscultation. CV Examination: normal. Prophylactic Antibiotics: The patient does not require prophylactic antibiotics. Prior Anticoagulants: The patient has taken no anticoagulant or antiplatelet agents. ASA Grade Assessment: III - A patient with severe systemic disease. After reviewing the risks and benefits, the patient was deemed in satisfactory condition to undergo the procedure. The anesthesia plan was to use monitored anesthesia care (MAC). Immediately prior to administration of medications, the patient was re-assessed for adequacy to receive sedatives. The heart rate, respiratory rate, oxygen saturations, blood pressure, adequacy of pulmonary ventilation, and response to care were monitored throughout the procedure. The physical status of the patient was re-assessed after the procedure. After obtaining informed consent, the endoscope was passed under direct vision. Throughout the procedure, the patient's blood pressure, pulse, and oxygen saturations were monitored continuously. The gastroscope was introduced through the mouth, and advanced to the second part of duodenum. The upper GI endoscopy was accomplished without difficulty. The patient tolerated the procedure well. Scope In: 3:32:56 PM Scope Out: 3:43:22 PM Total Procedure Duration Time 0 hours 10 minutes 26 seconds Findings: There were esophageal mucosal changes consistent with long-segment Tuttle's esophagus present in the lower third of the esophagus. The maximum longitudinal extent of these mucosal changes was 4 cm in length. Mucosa was biopsied with a cold forceps for histology in 4 quadrants at intervals of 1 cm in the lower third of the esophagus. One specimen bottle was sent to pathology. Verification of patient identification for the specimen was done. Estimated blood loss was minimal. Two oozing linear gastric ulcers with pigmented material were found in the gastric body. The largest lesion was 5 mm in largest dimension. Coagulation for hemostasis using heater probe was successful. Estimated blood loss was minimal. Localized minimal inflammation characterized by erythema and friability was found in the gastric body. Biopsies were taken with a cold forceps for histology. Biopsies were taken with a cold forceps for Helicobacter pylori testing. Verification of patient identification for the specimen was done. Estimated blood loss was minimal. One oozing cratered gastric ulcer with a visible vessel was found at the incisura. The lesion was 10 mm in largest dimension. Area was successfully injected with 7 mL of a 0.1 mg/mL solution of epinephrine for drug delivery. Coagulation for hemostasis using heater probe was successful. Estimated blood loss was minimal. Biopsies were taken with a cold forceps for histology. Verification of patient identification for the specimen was done. Estimated blood loss was minimal. The second portion of the duodenum was normal. 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 Biopsied. - Oozing gastric ulcers with pigmented material. Treated with a heater probe. - Gastritis. Biopsied. - Oozing gastric ulcer with a visible vessel. Injected. Treated with a heater probe. Biopsied. - Normal second portion of the duodenum. Recommendation: - Return patient to [facility] for [facility] care. - Full liquid diet. - Continue present medications. - Use Protonix (pantoprazole) 40 mg PO BID for 11 months. - Use sucralfate tablets 1 gram PO BID for 2 months. Procedure Code(s): --- Professional --- 77654, 59, Esophagogastroduodenoscopy, flexible, transoral; with control of bleeding, any method 21878, Esophagogastroduodenoscopy, flexible, transoral; with biopsy, single or multiple 80912, 59,51, Esophagogastroduodenoscopy, flexible, transoral; with directed submucosal injection(s), any substance CPT copyright 2021 [employer]. All rights reserved. The codes documented in this report are preliminary and upon family reunification specialist review may be revised to meet current compliance requirements. Louie Gonzales DO 03/01/2023 3:53:06 PM This report has been signed electronically. Number of Addenda: 0 Note Initiated On: 03/01/2023 3:17 PM
[2023-03-01] MEDS: Insulin Lispro 100 UNIT/ML INSULN.PEN SC ×2 (16:35→21:32)
[2023-03-01] MEDS: Sucralfate 1 GM Tablet PO (16:41)
[2023-03-01] MEDS: Pantoprazole Sodium 40 MG Tablet PO ×2 (16:41→21:33)
[2023-03-01 16:55] LABS: Bedside Glucose 166 mg/dL (74-106)
--- NOTE | 2023-03-01 19:56 | PCM.PN.HOSP ---
Reason for Visit Reason for Visit: Diagnoses Anemia, unspecified (02/26/23) Other specified diabetes mellitus with diabetic chronic kidney disease (02/26/23) Acute on chronic diastolic (congestive) heart failure (02/26/23) Gastrointestinal hemorrhage, unspecified (02/26/23) Acute kidney failure, unspecified (02/26/23) Chronic kidney disease, stage 3a (02/26/23) Hypoxemia (02/26/23) long-term (current) use of insulin (02/26/23) Subjective Subjective Patient was seen and examined today, he underwent a repeat EGD which showed evidence of Tuttle's esophagus, oozing gastric ulcers which were treated with a heater probe, gastritis, and a oozing gastric ulcer with a visible vessel that was injected and treated with a heater probe. Patient attempted to ambulate this afternoon before his EGD and his pressure went down into the 70s systolic and he was lightheaded, I have elected at this time to take him off IV Lasix, I have placed him on oral Lasix starting tomorrow morning and he will be reevaluated tomorrow for possible discharge home. Objective Data Objective Data Vital Signs: Vital Signs Temp Pulse Resp BP Pulse Ox O2 Del Method O2 Flow Rate 97.6 F L 74 16 129/79 H 99 Nasal Cannula 2 03/01/23 16:30 03/01/23 16:30 03/01/23 16:30 03/01/23 16:30 03/01/23 16:30 03/01/23 16:30 03/01/23 16:30 Oxygen Flow Rate (L/min) 2 Oxygen Delivery Method Nasal Cannula Weight: 116 kg Body Mass Index (BMI) 36.6 Intake & Output: Intake and Output for Last 24 Hours 02/27/23 02/28/23 03/01/23 23:59 23:59 23:59 Intake Total 1451 / 1452 2092.55 / 2092.55 1224.21 / 1224.21 Output Total 1999 4800 / 4800 2400 / 2400 Balance -549 / -548 -2707.45 / -2707.45 -1175.79 / -1175.79 Lab / Micro Data 03/01/23 08:12 03/01/23 05:55 Labs: Laboratory Results - last 24 hr 02/28/23 22:02: POC Glucose 202 H 03/01/23 05:55: WBC Cancelled, Corrected WBC Cancelled, RBC Cancelled, Hgb Cancelled, Hct Cancelled, MCV Cancelled, MCH Cancelled, MCHC Cancelled, RDW Std Deviation Cancelled, RDW Coeff of Thao Cancelled, Plt Count Cancelled, MPV Cancelled, Immature Gran % (Auto) Cancelled, Neut % (Auto) Cancelled, Lymph % (Auto) Cancelled, Deuel % (Auto) Cancelled, Eos % (Auto) Cancelled, Baso % (Auto) Cancelled, Absolute Neuts (auto) Cancelled, Absolute Lymphs (auto) Cancelled, Total Counted Cancelled, Neutrophils % (Manual) Cancelled, Band Neutrophils % Cancelled, Lymphocytes % (Manual) Cancelled, Monocytes % (Manual) Cancelled, Eosinophils % (Manual) Cancelled, Basophils % (Manual) Cancelled, Metamyelocytes % Cancelled, Myelocytes % Cancelled, Promyelocytes % Cancelled, Blast Cells % Cancelled, Plasma Cell % (Manual) Cancelled, Other Cells % Cancelled, Nucleated RBC % Cancelled, Nucleated RBCs/100 WBC Cancelled, Differential Comment Cancelled, Diff Path Review Cancelled, Hypersegmented Neuts Cancelled, Atypical Lymphocytes Cancelled, Reactive Lymphocytes Cancelled, Smudge Cells Cancelled, Toxic Granulation Cancelled, Toxic Vacuolation Cancelled, Dohle Bodies Cancelled, Paco Rods Cancelled, Platelet Estimate Cancelled, Plt Morphology Comment Cancelled, RBC Morphology Cancelled 03/01/23 05:55: RBC Morphology Cancelled, Polychromasia Cancelled, Hypochromasia Cancelled, Poikilocytosis Cancelled, Basophilic Stippling Cancelled, Anisocytosis Cancelled, Microcytosis Cancelled, Macrocytosis Cancelled, Spherocytes Cancelled, Sickle Cells Cancelled, Target Cells Cancelled, Tear Drop Cells Cancelled, Ovalocytes Cancelled, Stomatocytes Cancelled, Itrado-[place] Bodies Cancelled, Christina Cells Cancelled, Bite Cells Cancelled, Crenated Cell Cancelled, Acanthocytes (Spur) Cancelled, Rouleaux Cancelled, Schistocytes Cancelled, PT 15.5 H, INR 1.2, APTT 21.1 L, Sodium 144, Potassium 3.3 L, Chloride 112 H, Carbon Dioxide 27.0, Anion Gap 5, BUN 104 H*, Creatinine 2.88 H, Estim Creat Clear Calc 26.05, Est GFR (MDRD) Af Amer 28 L, Est GFR (MDRD) Non-Af 23 L, BUN/Creatinine Ratio 36.1 H, Glucose 153 H, Calcium 9.7, AST 111 H, ALT 137 H 03/01/23 06:52: POC Glucose 150 H 03/01/23 08:12: WBC 11.3 H, RBC 2.85 L, Hgb 8.2 L, Hct 26.5 L, MCV 93.0, MCH 28.8, MCHC 30.9 L, RDW Std Deviation 61.5 H, RDW Coeff of Thao 18.5 H, Plt Count 303, MPV 9.6, Immature Gran % (Auto) 1.300 H, Neut % (Auto) 80.4 H, Lymph % (Auto) 5.6 L, Deuel % (Auto) 11.2 H, Eos % (Auto) 1.1, Baso % (Auto) 0.4, Absolute Neuts (auto) 9.1 H, Absolute Lymphs (auto) 0.63 L, Nucleated RBC % 0.4 03/01/23 11:14: POC Glucose 162 H 03/01/23 16:33: POC Glucose 166 H Physical Exam Narrative alert, oriented x3 and no apparent distress General Appearance: cooperative, well kempt and well developed Orientation / Consciousness: awake, oriented to person, oriented to place and oriented to time HEENT normocephalic, head/scalp atraumatic and moist oral mucous membranes Eyes PERRL, EOMs intact bilaterally and conjunctivae normal Neck supple, no JVD, thyroid normal and no carotid bruits General: trachea midline Resp normal respiratory effort, no retractions, no use of accessory muscles and clear to auscultation bilaterally Auscultation: Negative for rales, rhonchi or wheezes Cardio S1 normal heart sound, S2 normal heart sound, no murmurs, no rub and no gallops Cardio Narrative: Heart rate and rhythm is irregular GI normal to inspection, nondistended, normoactive bowel sounds, soft to palpation, non-tender and non-distended Extremity no clubbing, cyanosis or edema Skin no rashes or lesions noted General Skin Exam: no breakdown Neuro oriented x3, CN's II-XII intact bilaterally, moves all extremities, no focal motor deficits and no sensory deficits noted Sensorium / Orientation: awake and alert Speech: speech normal Psych affect normal Assessment & Plan Assessment/Plan (1) GI bleed: QUALIFIERS: GI bleed type/associated pathology: unspecified gastrointestinal hemorrhage type Qualified Code(s): K92.2 - Gastrointestinal hemorrhage, unspecified (2) Heart failure with preserved ejection fraction: QUALIFIERS: Heart failure chronicity: acute on chronic Qualified Code(s): I50.33 - Acute on chronic diastolic (congestive) heart failure PLAN: Plan 1. Acute on chronic congestive heart failure with preserved ejection fraction-due to relative hypotension today, I have decided to place patient on oral Lasix and stop his IV Lasix, the Lasix will be restarted tomorrow, patient may be evaluated for possible discharge in the morning #2 acute upper GI bleed requiring blood transfusion-from gastric ulcer-again this was treated today by GI #3 chronic atrial fibrillation-patient is currently not on any anticoagulation, due to his GI bleed, I will refrain from placing the patient on any anticoagulation at this time #4 hypoxia-probably secondary to congestive heart failure-pulse ox will be monitored, again the patient has an oxygen concentrator at home, he will need ambulatory pulse ox before he is discharged home #5 essential hypertension-patient's blood pressure will be monitored, it may be necessary to hold some of his blood pressure medications due to his hypotension earlier today #6 type 2 diabetes-patient's blood sugars will be monitored, sliding scale insulin will be administered as needed #7 noncompliance with medical regimen-patient states that he did not receive his furosemide by mail and he did not contact any of his physicians about obtaining any furosemide #8 coronary artery disease-this appears stable at this time, again patient is noncompliant with his home medications, patient is supposed to be taking Plavix and Eliquis, he was not on Eliquis. Total clinical time spent by myself addressing the patient's medical issues, reviewing all of his data, and collaborating with patient's care team: 35 minutes Charges/Coding Visit Charges Inpatient E&M: 18087 Subs Hosp L2
[2023-03-01 22:29] LABS: Bedside Glucose 191 mg/dL (74-106)
[2023-03-02] VITALS (19 sets, daily range): BP systolic 94–152; BP diastolic 52–92; PULSE 65–82; RESP 16–18; TEMP 36.4–36.7; O2SAT 90–99; BMI 34.7
[2023-03-02] MEDS: Acetaminophen 325 MG Tablet 650 MG PO (01:40)
[2023-03-02] MEDS: Sucralfate 1 GM Tablet PO ×3 (06:14→16:12)
[2023-03-02 06:48] LABS: Hematocrit 23.7 % (40-54); Hemoglobin 7.3 g/dL (13.0-16.5)
[2023-03-02 06:56] LABS: Bedside Glucose 115 mg/dL (74-106)
[2023-03-02 07:48] LABS: Anion Gap 4 (5-15); BUN 82 mg/dL (7-18); BUN/Creat Ratio 29.8 RATIO (10-20); Calcium,Total 9.3 mg/dL (8.5-10.1); Chloride 110 mmol/L (98-107); Creatinine, Serum 2.75 mg/dL (0.70-1.30); EST Glomerular Filtration Rate 25 mL/min (>60); Est Glom Filt Rate - Afr Amer 30 mL/min (>60); Estimated Creatinine Clearance 27.28 ml/min; Glucose 115 mg/dL (74-106); Potassium 3.3 mmol/L (3.5-5.1); Sodium Level 143 mmol/L (136-145)
[2023-03-02 10:04] LABS: Hemoglobin 7.7 g/dL (13.0-16.5)
[2023-03-02] MEDS: Cinacalcet HCl 30 MG Tablet PO ×2 (10:34→20:54)
[2023-03-02] MEDS: Ranolazine 500 MG Tablet PO ×2 (10:34→20:54)
[2023-03-02] MEDS: Potassium Chloride Oral Tablet 20 MEQ 60 MEQ PO (10:34)
[2023-03-02] MEDS: Paroxetine 20 MG Tablet 40 MG PO (10:34)
[2023-03-02] MEDS: Pantoprazole Sodium 40 MG Tablet PO ×2 (10:35→20:53)
[2023-03-02] MEDS: Clopidogrel Bisulfate 75 MG Tablet PO (10:35)
[2023-03-02] MEDS: Fenofibrate 145 MG Tablet PO (10:35)
[2023-03-02] MEDS: Metoprolol(XL)Succ 50 MG Tablet PO ×2 (10:35→20:54)
[2023-03-02] MEDS: 0.9% Normal Saline (1000mL) 1,000 ML 250 ML IV (10:41)
[2023-03-02 11:36] LABS: Bedside Glucose 112 mg/dL (74-106)
--- NOTE | 2023-03-02 14:52 | PCM.PN.HOSP ---
Reason for Visit Reason for Visit: Shortness of breath Subjective Subjective Mr. Teixeira is a 67-year-old male who presents emergency department at [facility] on 02/26/2023 complaining of 1 week history of shortness of breath. Approximately 30 minutes prior to presentation his shortness of breath acutely increased. He had associated fatigue. The patient noted that he had been out of Lasix for approximately 1 week so he had not been taking his Lasix. He had also been out of his Synthroid because he ran out. He was admitted to the telemetry floor where he was placed on IV Lasix and he had diuresed well. For his hospitalization he has diuresed a cumulative of about 6.162 L. On 1120 he developed nausea and vomiting with hematemesis and his hemoglobin dropped from 10.7-8.8. The patient was placed on IV Protonix and a repeat hemoglobin at noon was 7.4. 2 units of packed red blood cells were ordered and transfused and GI consult was placed. 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 Azithromycin 1 g for 1 dose was given for some gastroparesis as well as Reglan 10 mg every 6 hours for 24 hours and he was to be maintained on Protonix and Carafate to be started. Clinically overall he was doing much better by 03/01/2023 however he was having some lightheadedness with standing and orthostatic vitals were obtained. He was found to be orthostatic positive and his Lasix was transitioned from IV to p.o. Upon reevaluation today the patient remains orthostatic positive. I did give him 1 L of IV fluids and he unfortunately remains orthostatic positive. His hemoglobin is significantly lower than previous so I will give him 1 unit of packed red blood cells and rias check orthostatic vitals tomorrow morning. We will also hold his Lasix today and restart tomorrow. Objective Data Objective Data Vital Signs: Vital Signs Temp Pulse Resp BP Pulse Ox O2 Del Method O2 Flow Rate 97.7 F L 82 16 94/65 93 Room Air 0 03/02/23 14:36 03/02/23 14:38 03/02/23 14:36 03/02/23 14:38 03/02/23 14:52 03/02/23 14:36 03/02/23 14:52 Oxygen Flow Rate (L/min) [ 0 AMBULATING on Room Air] Oxygen Flow Rate (L/min) [At 0 REST on Room Air] Oxygen Flow Rate (L/min) 2 Oxygen Delivery Method Room Air Weight: 109.6 kg Body Mass Index (BMI) 34.7 Intake & Output: Intake and Output for Last 24 Hours 02/28/23 03/01/23 03/02/23 23:59 23:59 23:59 Intake Total 2092.55 / 2092.55 1224.21 / 1584.21 480 / 480 Output Total 4800 / 4800 2400 / 3100 1200 / 1200 Balance -2707.45 / -2707.45 -1175.79 / -1515.79 -720 / -720 Lab / Micro Data 03/02/23 09:36 03/02/23 05:35 Labs: Laboratory Results - last 24 hr 03/01/23 16:33: POC Glucose 166 H 03/01/23 21:31: POC Glucose 191 H 03/02/23 05:35: Hgb 7.3 L, Hct 23.7 L, Sodium 143, Potassium 3.3 L, Chloride 110 H, Carbon Dioxide 29.0, Anion Gap 4 L, BUN 82 H, Creatinine 2.75 H, Estim Creat Clear Calc 27.28, Est GFR (MDRD) Af Amer 30 L, Est GFR (MDRD) Non-Af 25 L, BUN/Creatinine Ratio 29.8 H, Glucose 115 H, Calcium 9.3 03/02/23 06:16: POC Glucose 115 H 03/02/23 09:36: Hgb 7.7 L 03/02/23 11:12: POC Glucose 112 H Physical Exam Const alert, oriented x3, no apparent distress and well nourished Constitutional Narrative: Obese, upper middle-aged white male, sitting in a chair at the bedside, nursing at bedside,, appears much older than stated age, appears comfortable and nontoxic HEENT head/scalp atraumatic and moist oral mucous membranes HEENT Narrative: Mallampati is 3, no thrush Head and Scalp: normocephalic Resp normal respiratory effort, no retractions, no use of accessory muscles and clear to auscultation bilaterally Resp Narrative: Few bibasilar crackles Auscultation: crackles; Negative for rhonchi or wheezes Cardio regular rate, regular rhythm, S1 normal heart sound, S2 normal heart sound, no murmurs, no rub, no gallops and no clicks GI normal to inspection, nondistended, normoactive bowel sounds, soft to palpation and non-tender Extremity Extremity Narrative: Trace to 1+ bilateral lower extremity pitting edema around the ankles and feet with no sign of clubbing Neuro oriented x3, moves all extremities and no focal motor deficits Speech: speech normal Psych Psych Narrative: Affect is mildly flat however eye contact is good and patient interacts appropriately Assessment & Plan Assessment/Plan (1) GI bleed: QUALIFIERS: GI bleed type/associated pathology: unspecified gastrointestinal hemorrhage type Qualified Code(s): K92.2 - Gastrointestinal hemorrhage, unspecified (2) Gastric ulcer: (3) Acute on chronic anemia: (4) Heart failure with preserved ejection fraction: QUALIFIERS: Heart failure chronicity: acute on chronic Qualified Code(s): I50.33 - Acute on chronic diastolic (congestive) heart failure (5) Hypoxia: (6) Shortness of breath: (7) Lightheadedness: PLAN: Plan Shortness of breath secondary to decompensated heart failure with preserved ejection fraction -Patient was found to be noncompliant on presentation and had been out of Lasix for several days -Has diuresed well with over 6 L of diuresis during his hospital course -Echocardiogram from 10/21/2022 showed an EF of 55 to 60% with mild MR -Lasix on hold today due to orthostatic positive vital signs -Will plan to restart Lasix with prescription to be reinitiated at discharge -Continue fluid restriction but changed to 1750 cc -Continue daily weights -Continue sodium restriction Hypoxia -Resolved -Patient is currently weaned to room air -Will check ambulatory pulse ox prior to discharge Lightheadedness with orthostatic positive vital signs -Patient was gently rehydrated with 1 L of IV fluids as I suspect he may have had a bit of overdiuresis but remains orthostatic positive and symptomatic -We will give 1 more unit of packed red blood cells as this may be contributing -Recheck orthostatic vital signs in a.m. -Hold Lasix today and plan to restart tomorrow Acute on chronic anemia -Baseline hemoglobin appears to run between 12.5 and 14 -Most recent hemoglobin was 7.7 -Status post 2 units packed red blood cells -Since patient is orthostatic positive with symptoms we will give 1 more unit of packed red blood cells to see if this does not help with his orthostasis -Repeat CBC in a.m. GI bleed secondary to gastric ulcer -Status post EGD on 02/28/2023 with heater probe treatment and injection -Continue Protonix 40 mg p.o. twice daily for 8 weeks then transition to 1 time daily -Continue Carafate as ordered for 6 weeks -GI follow-up after discharge CKD--> baseline unclear -Serum creatinine in October of this year was between 1.4 and 1.7 -Serum creatinine on admission was 2.74 and has been fairly stable throughout his hospital course at this level -Will need nephrology referral at discharge -Urine output has been good -If creatinine stays stable where it is we will recommend outpatient follow-up if worsens will proceed with further evaluation while hospitalized FAVIAN -Encourage CPAP use CAD/HTN/HPL -Continue home medication -Patient with previous coronary artery stenting -Continue aspirin and Plavix as patient had his most recent cardiac stent in 10/2022--> this was a drug-eluting stent and require 1 year of dual antiplatelet therapy at which time he should be reevaluated for discontinuation of either his aspirin and Plavix DM-2 -Oral home agents on hold -Continue subcu insulins -Accu-Cheks as ordered -SSI -AM fasting blood sugar was 115 today History of hyperglycemia secondary to hyperparathyroidism -Continue home medication -Current calcium is within normal limits Chronic pain -Avoid NSAIDs -As needed Tylenol available Depression/anxiety -Continue home paroxetine Obesity -Weight is 34.7 kg -Recommend weight loss -Complicates treatment, prognosis, outcomes DVT prophylaxis -Will start heparin 3 times daily CODE STATUS Full Code Charges/Coding Visit Charges Inpatient E&M: 57756 [facility] Hosp L3
[2023-03-02] MEDS: Insulin Lispro 100 UNIT/ML INSULN.PEN SC ×2 (16:12→21:06)
[2023-03-02 16:33] LABS: Bedside Glucose 188 mg/dL (74-106)
--- NOTE | 2023-03-02 18:30 | EX.PCM.PN.GI ---
Subjective Subjective Patient underwent repeat upper endoscopy yesterday for treatment of upper GI bleeding secondary to gastric ulcers likely secondary to NSAIDs. Biopsies were taken and pending for H. pylori and other acute pathology. Objective Data Objective Data Vital Signs: Vital Signs Temp Pulse Resp BP Pulse Ox O2 Del Method O2 Flow Rate 98.1 F 77 16 117/77 93 Room Air 0 03/02/23 16:06 03/02/23 16:06 03/02/23 16:06 03/02/23 16:06 03/02/23 16:06 03/02/23 16:06 03/02/23 14:52 Oxygen Flow Rate (L/min) [ 0 AMBULATING on Room Air] Oxygen Flow Rate (L/min) [At 0 REST on Room Air] Oxygen Flow Rate (L/min) 2 Oxygen Delivery Method Room Air Weight: 241 lb 10.026 oz Body Mass Index (BMI) 34.7 Intake & Output: Intake and Output for Last 24 Hours 02/28/23 03/01/23 03/02/23 23:59 23:59 23:59 Intake Total 2092.55 / 2092.55 1224.21 / 1584.21 1960 / 1960 Output Total 4800 / 4800 2400 / 3100 1700 / 1700 Balance -2707.45 / -2707.45 -1175.79 / -1515.79 260 / 260 Lab / Micro Data 03/02/23 09:36 03/02/23 05:35 Labs: Laboratory Results - last 24 hr 03/01/23 21:31: POC Glucose 191 H 03/02/23 05:35: Hgb 7.3 L, Hct 23.7 L, Sodium 143, Potassium 3.3 L, Chloride 110 H, Carbon Dioxide 29.0, Anion Gap 4 L, BUN 82 H, Creatinine 2.75 H, Estim Creat Clear Calc 27.28, Est GFR (MDRD) Af Amer 30 L, Est GFR (MDRD) Non-Af 25 L, BUN/Creatinine Ratio 29.8 H, Glucose 115 H, Calcium 9.3 03/02/23 06:16: POC Glucose 115 H 03/02/23 09:36: Hgb 7.7 L 03/02/23 11:12: POC Glucose 112 H 03/02/23 15:40: Blood Type A POSITIVE, Antibody Screen NEGATIVE, Crossmatch See Detail 03/02/23 16:10: POC Glucose 188 H Physical Exam Const alert, oriented x3, no apparent distress and well nourished HEENT head/scalp atraumatic and moist oral mucous membranes HEENT Narrative: Mallampati is 3, no thrush Head and Scalp: normocephalic Resp normal respiratory effort, no retractions, no use of accessory muscles and clear to auscultation bilaterally Resp Narrative: Few bibasilar crackles Auscultation: crackles; Negative for rhonchi or wheezes Cardio regular rate, regular rhythm, S1 normal heart sound, S2 normal heart sound, no murmurs, no rub, no gallops and no clicks GI normal to inspection, nondistended, normoactive bowel sounds, soft to palpation and non-tender Extremity Extremity Narrative: Trace to 1+ bilateral lower extremity pitting edema around the ankles and feet with no sign of clubbing Neuro oriented x3, moves all extremities and no focal motor deficits Speech: speech normal Psych Psych Narrative: Affect is mildly flat however eye contact is good and patient interacts appropriately Assessment & Plan Assessment/Plan (1) GI bleed: QUALIFIERS: GI bleed type/associated pathology: unspecified gastrointestinal hemorrhage type Qualified Code(s): K92.2 - Gastrointestinal hemorrhage, unspecified (2) Heart failure with preserved ejection fraction: QUALIFIERS: Heart failure chronicity: acute on chronic Qualified Code(s): I50.33 - Acute on chronic diastolic (congestive) heart failure PLAN: Plan Acute upper GI bleed requiring blood transfusion-from gastric ulcer. Continue medical therapy with Protonix and sulcal fate. He will need repeat upper endoscopy in approximately 2 months to ensure full healing of gastric ulcers pending pathology for intestinal metaplasia, dysplasia or cancer and H. pylori. Charges/Coding Visit Charges Inpatient E&M: 92709 Subs Hosp L3
[2023-03-02] MEDS: Heparin Injection (Vial) 5,000 UNIT/ML VIAL 5000 UNIT SC (20:55)
[2023-03-02 21:54] LABS: Bedside Glucose 210 mg/dL (74-106)
[2023-03-03] VITALS (8 sets, daily range): BP systolic 132–150; BP diastolic 71–115; PULSE 62–82; RESP 18; TEMP 36.3–36.6; O2SAT 74–99; BMI 34.7
[2023-03-03 05:53] LABS: Absolute Lymphocyte Count 0.74 X10^3/uL (0.83-4.51); Absolute Neutrophil Count 8.1 X10^3/uL (2.0-7.7); Basophil# 0.04 X10^3/uL; Basophil% 0.4 % (0-1); Eosinophil# 0.16 X10^3/uL; Eosinophils% 1.5 % (0-5); Hematocrit 29.8 % (40-54); Hemoglobin 9.1 g/dL (13.0-16.5); Lymphocyte # 0.74 X10^3/ul (0.83-4.51); Mean Corp Hgb Conc 30.5 g/dL (32-36); Mean Corpuscular Hgb 29.2 pg (27.0-32.0); Mean Corpuscular Volume 95.5 fL (80-94); Mean Platelet Vol. 9.4 fl (6.2-12.0); Monocyte# 1.32 X10^3/uL; Monocyte% 12.5 % (0-10); NRBC Flagged by Analyzer 0.8 % (0-5); Neutrophil # 8.12 X10^3/uL (2.7-7.7); Neutrophil % 76.7 % (47-70); Platelet Count 311 K/mm3 (150-450); RBC Distribution Width CV 18.5 % (11.6-14.6); RBC Distribution Width SD 58.5 fl (35.1-43.9); Red Blood Count 3.12 M/mm3 (4.6-6.2); White Blood Count 10.6 K/mm3 (4.4-11.0)
[2023-03-03] MEDS: Heparin Injection (Vial) 5,000 UNIT/ML VIAL 5000 UNIT SC (06:11)
[2023-03-03] MEDS: Sucralfate 1 GM Tablet PO ×2 (06:12→09:58)
[2023-03-03 06:32] LABS: Anion Gap 8 (5-15); BUN 59 mg/dL (7-18); BUN/Creat Ratio 23.9 RATIO (10-20); Calcium,Total 9.5 mg/dL (8.5-10.1); Chloride 110 mmol/L (98-107); Creatinine, Serum 2.47 mg/dL (0.70-1.30); EST Glomerular Filtration Rate 28 mL/min (>60); Est Glom Filt Rate - Afr Amer 34 mL/min (>60); Estimated Creatinine Clearance 30.38 ml/min; Glucose 151 mg/dL (74-106); Potassium 3.7 mmol/L (3.5-5.1); Sodium Level 142 mmol/L (136-145)
[2023-03-03 06:33] LABS: Bedside Glucose 160 mg/dL (74-106)
[2023-03-03] MEDS: Insulin Lispro 100 UNIT/ML INSULN.PEN SC ×2 (06:44→11:12)
[2023-03-03 07:01] LABS: Phosphorus 2.9 mg/dL (2.5-4.9)
[2023-03-03] MEDS: Furosemide 40 MG Tablet PO (09:56)
[2023-03-03] MEDS: Aspirin 81 MG TAB.CHEW PO (09:57)
[2023-03-03] MEDS: amLODIPine 10 MG Tablet PO (09:57)
[2023-03-03] MEDS: Pantoprazole Sodium 40 MG Tablet PO (09:57)
[2023-03-03] MEDS: Metoprolol(XL)Succ 50 MG Tablet PO (09:57)
[2023-03-03] MEDS: Fenofibrate 145 MG Tablet PO (09:57)
[2023-03-03] MEDS: Cinacalcet HCl 30 MG Tablet PO (09:58)
[2023-03-03] MEDS: Clopidogrel Bisulfate 75 MG Tablet PO (09:58)
[2023-03-03] MEDS: Ranolazine 500 MG Tablet PO (09:58)
--- NOTE | 2023-03-03 10:00 | PN.GI_ITS ---
Subjective Subjective Patient is doing well. He is tolerating a diet without any abdominal pain and he has not seen any signs of GI bleeding. Objective Data Objective Data Vital Signs: Vital Signs Temp Pulse Resp BP Pulse Ox O2 Del Method O2 Flow Rate 97.4 F L 75 18 135/71 H 95 Room Air 0 03/03/23 12:50 03/03/23 12:50 03/03/23 12:50 03/03/23 12:50 03/03/23 12:50 03/03/23 12:50 03/03/23 10:07 Oxygen Flow Rate (L/min) [ 0 AMBULATING on Room Air] Oxygen Flow Rate (L/min) [At 0 REST on Room Air] Oxygen Flow Rate (L/min) 2 Oxygen Delivery Method Room Air Weight: 242 lb 8.136 oz Body Mass Index (BMI) 34.7 Intake & Output: Intake and Output for Last 24 Hours 03/01/23 03/02/23 03/03/23 23:59 23:59 23:59 Intake Total 1224.21 / 1584.21 2920 / 2920 180 / 180 Output Total 2400 / 3100 2650 / 2650 Balance -1175.79 / -1515.79 270 / 270 180 / 180 Lab / Micro Data 03/03/23 05:15 03/03/23 05:15 Labs: Laboratory Results - last 24 hr 03/02/23 15:40: Blood Type A POSITIVE, Antibody Screen NEGATIVE, Crossmatch See Detail 03/02/23 16:10: POC Glucose 188 H 03/02/23 21:06: POC Glucose 210 H 03/03/23 05:15: WBC 10.6, RBC 3.12 L, Hgb 9.1 L, Hct 29.8 L, MCV 95.5 H, MCH 29.2, MCHC 30.5 L, RDW Std Deviation 58.5 H, RDW Coeff of Thao 18.5 H, Plt Count 311, MPV 9.4, Immature Gran % (Auto) 1.900 H, Neut % (Auto) 76.7 H, Lymph % (Auto) 7.0 L, Preston % (Auto) 12.5 H, Eos % (Auto) 1.5, Baso % (Auto) 0.4, Absolute Neuts (auto) 8.1 H, Absolute Lymphs (auto) 0.74 L, Nucleated RBC % 0.8, Sodium 142, Potassium 3.7, Chloride 110 H, Carbon Dioxide 24.0, Anion Gap 8, BUN 59 H, Creatinine 2.47 H, Estim Creat Clear Calc 30.38, Est GFR (MDRD) Af Amer 34 L, Est GFR (MDRD) Non-Af 28 L, BUN/Creatinine Ratio 23.9 H, Glucose 151 H, Calcium 9.5, Phosphorus 2.9, Magnesium 2.0 03/03/23 06:06: POC Glucose 160 H 03/03/23 11:10: POC Glucose 250 H Physical Exam Narrative Patient states his lightheadedness is resolved. Const alert, oriented x3, no apparent distress and well nourished General Appearance: cooperative, comfortable, well kempt and well developed Orientation / Consciousness: awake, oriented to person, oriented to place and oriented to time HEENT normocephalic, head/scalp atraumatic and moist oral mucous membranes HEENT Narrative: Mild hearing loss, Mallampati 3, no thrush Eyes PERRL, EOMs intact bilaterally and conjunctivae normal Neck no lymphadenopathy, supple and no JVD Neck Narrative: Trachea midline, thyroid not enlarged Resp normal respiratory effort, no retractions, no use of accessory muscles and clear to auscultation bilaterally Auscultation: Negative for crackles, rhonchi or wheezes Cardio S1 normal heart sound, S2 normal heart sound, no murmurs, no rub, no gallops and no clicks Cardio Narrative: Heart rate and rhythm is irregular GI normal to inspection, nondistended, normoactive bowel sounds, soft to palpation and non-tender Extremity no clubbing, cyanosis or edema Skin no rashes or lesions noted, no wounds, skin turgor normal and no jaundice Neuro oriented x3, moves all extremities, no focal motor deficits and no sensory deficits noted Sensorium / Orientation: awake, alert, oriented to person, oriented to place and oriented to time Speech: speech normal Psych Psych Narrative: Affect is mildly flat however eye contact is good and patient interacts appropriately Assessment & Plan Assessment/Plan (1) GI bleed: QUALIFIERS: GI bleed type/associated pathology: unspecified gastrointestinal hemorrhage type Qualified Code(s): K92.2 - Gastrointestinal hemorrhage, unspecified (2) Heart failure with preserved ejection fraction: QUALIFIERS: Heart failure chronicity: acute on chronic Qualified Code(s): I50.33 - Acute on chronic diastolic (congestive) heart failure PLAN: Plan 1. Acute on chronic congestive heart failure with preserved ejection fraction- due to relative hypotension today, I have decided to place patient on oral Lasix and stop his IV Lasix, the Lasix will be restarted tomorrow, patient may be evaluated for possible discharge in the morning #2 acute upper GI bleed requiring blood transfusion-from gastric ulcer-again I #3 chronic atrial fibrillation-patient is currently not on any anticoagulation, due to his GI bleed, I will refrain from placing the patient on any anticoagulation at this time #4 hypoxia-probably secondary to congestive heart failure-pulse ox will be monitored, again the patient has an oxygen concentrator at home, he will need ambulatory pulse ox before he is discharged home #5 essential hypertension-patient's blood pressure will be monitored, it may be necessary to hold some of his blood pressure medications due to his hypotension earlier today #6 type 2 diabetes-patient's blood sugars will be monitored, sliding scale insulin will be administered as needed #7 noncompliance with medical regimen-patient states that he did not receive his furosemide by mail and he did not contact any of his physicians about obtaining any furosemide #8 coronary artery disease-this appears stable at this time, again patient is noncompliant with his home medications, patient is supposed to be taking Plavix and Eliquis, he was not on Eliquis. Total clinical time spent by myself addressing the patient's medical issues, reviewing all of his data, and collaborating with patient's care team: 35 minutes Charges/Coding Visit Charges Inpatient E&M: [id number] [facility] L3
--- NOTE | 2023-03-03 11:14 | CASEMGMT ---
CLARITA IBARRA NOTE: Pt being discharged. CLARITA IBARRA to room. Pt sitting up in chair in room. Discussed therapy recommendations. Pt declines wanting HHC or OP therapy, stating he has done therapy in the past, he knows what to do/what exercises to do, and remembers how to do them. He also declines wanting SN/HHC. Pt made aware if he changes his mind once returning home, to discuss this with his PCP. He voices understanding. Pt was provided w/audio visual aide agency list and Medical alert info sheet/providers. Pt inquired about Palliative care. Questions answered. Pt interested in referral. Dr Burns made aware and order received. Referral sent to [employer] via e-mail. Pt made aware someone from palliative would be contacting him. He voices appreciation and declines needing other resources. He feels safe to return home alone. Kris SEVERINO RN, CM
[2023-03-03] MEDS: Acetaminophen 325 MG Tablet 650 MG PO (11:36)
[2023-03-03 11:47] LABS: Bedside Glucose 250 mg/dL (74-106)
--- NOTE | 2023-03-03 12:21 | CASEMGMT ---
Social work Pt does not have LW/POA on file. SW spoke w/pt, inquired if he is interested in completing the documents at a later date, or wants copies of the blank documents. Pt declined, stating if decisions need made it would be his brother, who is his next of kin. Pt is not , does not have children, and his brother is his only sibling. JARRETT Dumont
--- NOTE | 2023-03-03 12:41 | PCM.DC.SUM ---
Providers Date of Admission: 02/26/23 Date of Discharge: 03/03/23 Primary Care Physician: Dr. Mery Raymond MD Consultations 02/27/23 12:54 Consult: Gastroenterology Routine Consulting Provider: [facility] Reason for Consult: Upper GI bleed EMERGENT Consult: Yes MD Notified: Yes Date Notified: 02/27/23 Time Notified: 13:03 Method of Notification: Text Reason For Visit: ACUTE ON CHRONIC HEART FAILURE WITH PRESERVED EF Diagnosis Discharge Diagnosis (1) GI bleed: Status: Acute Code(s): K92.2 - Gastrointestinal hemorrhage, unspecified Qualifiers: GI bleed type/associated pathology: unspecified gastrointestinal hemorrhage type Qualified Code(s): K92.2 - Gastrointestinal hemorrhage, unspecified (2) Heart failure with preserved ejection fraction: Status: Acute Code(s): I50.30 - Unspecified diastolic (congestive) heart failure Qualifiers: Heart failure chronicity: acute on chronic Qualified Code(s): I50.33 - Acute on chronic diastolic (congestive) heart failure Plan Shortness of breath secondary to decompensated heart failure with preserved ejection fraction -Patient was found to be noncompliant on presentation and had been out of Lasix for several days -Has diuresed well with over 6 L of diuresis during his hospital course -Echocardiogram from 10/21/2022 showed an EF of 55 to 60% with mild MR -Lasix on hold today due to orthostatic positive vital signs -Will plan to restart Lasix with prescription to be reinitiated at discharge -Continue fluid restriction but changed to 1750 cc -Continue daily weights -Continue sodium restriction Hypoxia -Resolved -Patient is currently weaned to room air -Will check ambulatory pulse ox prior to discharge Lightheadedness with orthostatic positive vital signs -Patient was gently rehydrated with 1 L of IV fluids as I suspect he may have had a bit of overdiuresis but remains orthostatic positive and symptomatic -We will give 1 more unit of packed red blood cells as this may be contributing -Recheck orthostatic vital signs in a.m. -Hold Lasix today and plan to restart tomorrow Acute on chronic anemia -Baseline hemoglobin appears to run between 12.5 and 14 -Most recent hemoglobin was 7.7 -Status post 2 units packed red blood cells -Since patient is orthostatic positive with symptoms we will give 1 more unit of packed red blood cells to see if this does not help with his orthostasis -Repeat CBC in a.m. GI bleed secondary to gastric ulcer -Status post EGD on 02/28/2023 with heater probe treatment and injection -Continue Protonix 40 mg p.o. twice daily for 8 weeks then transition to 1 time daily -Continue Carafate as ordered for 6 weeks -GI follow-up after discharge CKD--> baseline unclear -Serum creatinine in October of this year was between 1.4 and 1.7 -Serum creatinine on admission was 2.74 and has been fairly stable throughout his hospital course at this level -Will need nephrology referral at discharge -Urine output has been good -If creatinine stays stable where it is we will recommend outpatient follow-up if worsens will proceed with further evaluation while hospitalized FAVIAN -Encourage CPAP use CAD/HTN/HPL -Continue home medication -Patient with previous coronary artery stenting -Continue aspirin and Plavix as patient had his most recent cardiac stent in 10/2022--> this was a drug-eluting stent and require 1 year of dual antiplatelet therapy at which time he should be reevaluated for discontinuation of either his aspirin and Plavix DM-2 -Oral home agents on hold -Continue subcu insulins -Accu-Cheks as ordered -SSI -AM fasting blood sugar was 115 today History of hyperglycemia secondary to hyperparathyroidism -Continue home medication -Current calcium is within normal limits Chronic pain -Avoid NSAIDs -As needed Tylenol available Depression/anxiety -Continue home paroxetine Obesity -Weight is 34.7 kg -Recommend weight loss -Complicates treatment, prognosis, outcomes DVT prophylaxis -Will start heparin 3 times daily CODE STATUS Full Code Medications at Discharge Home Medications Handicap Placard #1 ea 04/08/20 flash glucose scanning reader (FreeStyle Tiffanie 2 [place]) #1 ea 02/16/21 flash glucose sensor (FreeStyle Tiffanie 2 Sensor kit) #2 ea 02/16/21 pen needle, diabetic 32 gauge x 5/32 (BD Ultra-Fine Lorie Pen Needle) #360 ea 04/08/22 ferrous sulfate 325 mg (65 mg iron) tablet 325 mg PO DAILY #90 tabs 08/18/22 blood sugar diagnostic (OneTouch Verio test strips) #100 ea 09/06/22 cholecalciferol (vitamin D3) 1,250 mcg (50,000 unit) capsule 1,250 mcg PO QWEEK #8 caps 09/07/22 metoprolol succinate 50 mg tablet,extended release 24 hr 50 mg PO BID BLOOD PRESSURE #180 tabs 09/21/22 clopidogrel 75 mg tablet 75 mg PO DAILY BLOOD THINNER #90 tabs 10/03/22 tramadol 50 mg tablet 50 mg PO Q6H PRN PRN Pain Score 6-10 3 days #10 tabs 10/18/22 acetaminophen 650 mg rectal suppository 650 mg DE Q4H PRN fever or pain 10/20/22 aluminum-magnesium hydroxide 225 mg-200 mg/5 mL oral suspension 30 ml PO DAILY PRN GI DISTRESS 10/20/22 bisacodyl 10 mg rectal suppository 10 mg DE DAILY PRN constipation 10/20/22 dextrose 40 % oral gel (Glucose Gel) 15 g PO Q15M PRN hypoglycemia 10/20/22 fenofibrate micronized 200 mg capsule 200 mg PO DAILY cholesterol #30 caps 10/20/22 glucagon HCl 1 mg solution for injection (Glucagon (HCl) Emergency Kit) 1 mg IM Q20M PRN hypoglycemia 10/20/22 guaifenesin 200 mg/5 mL oral liquid 200 mg PO Q4H PRN congestion 10/20/22 magnesium hydroxide 400 mg/5 mL oral suspension (Milk of Magnesia) 30 ml PO DAILY PRN constipation 10/20/22 sodium phosphates 19 gram-7 gram/118 mL enema (Enema) 118 ml DE DAILY PRN constipation 10/20/22 insulin glargine 100 unit/mL (3 mL) subcutaneous pen (Lantus Solostar U-100 Insulin) 7 unit (0.07 mL) subcut DAILY #15 mL 10/27/22 potassium chloride 20 mEq tablet,extended release(part/cryst) 20 meq PO BID potassium 90 days #540 tabs 11/09/22 amlodipine 10 mg tablet 10 mg PO DAILY BLOOD PRESSURE #90 tabs 11/18/22 losartan 25 mg tablet 25 mg PO DAILY blood pressure #90 tabs 12/08/22 ranolazine 500 mg tablet,extended release,12 hr 500 mg PO BID chest pain #180 tabs 12/20/22 Ozempic 1 mg/dose (4 mg/3 mL) subcutaneous pen injector (semaglutide) 1 mg (0.75 mL) subcut QWEEK weight loss #3 mL 12/28/22 nitroglycerin 0.4 mg sublingual tablet See Rx Instructions .Route .COMPLEX chest pain #25 tabs 01/18/23 paroxetine HCl 40 mg tablet 40 mg PO DAILY depression #90 tabs 02/09/23 insulin regular hum U-500 conc 500 unit/mL(3 mL) subcut pen (Humulin R U-500 (Conc) Insulin Kwikpen) 30 unit subcut .TIDCM blood sugar 02/26/23 cinacalcet 30 mg tablet 30 mg PO BID hypercalcemia #60 tabs 03/03/23 furosemide 20 mg tablet 40 mg (2 x 20 mg) PO BID 90 days #60 tabs 03/03/23 pantoprazole 40 mg tablet,delayed release 40 mg PO BID #60 tabs 03/03/23 sucralfate 1 gram tablet 1 g PO 0700,1100,1600 #90 tabs 03/03/23 Hospital Course Summary of Care Provided Minutes Spent on Discharge: 39 Hospital Course: Mr. Teixeira is a 67-year-old male who presented to the emergency department at [facility] on 02/26/2023 complaining of 1 week history of shortness of breath. Approximately 30 minutes prior to presentation his shortness of breath acutely increased. He complained of associated fatigue. The patient noted that he had been out of Lasix for approximately 1 week so he had not been taking his Lasix. He had also been out of his Synthroid and cinacalet because he ran out. He was admitted to the telemetry floor where he was placed on IV Lasix and he had diuresed well. For his hospitalization he diuresed a cumulative of about 6.162 L. On 02/27 he developed nausea and vomiting with hematemesis and his hemoglobin dropped from 10.7-8.8. The patient was placed on IV Protonix and a repeat hemoglobin at noon over the same day was 7.4 . 2 units of packed red blood cells were ordered and transfused and GI consult was placed. He was taken for an EGD on 02/28/2023 where he was found to have mucosal changes consistent with Tuttle's esophagus, small hiatal hernia, a large amount of residual food in the stomach, hematin in the gastric body as well as an oozing gastric ulcer with a visible vessel that was injected and heated with anti tank missileman probe. Azithromycin 1 g for 1 dose was given for some gastroparesis as well as Reglan 10 mg every 6 hours for 24 hours and he was to be maintained on Protonix and Carafate for 8 weeks and then transition Protonix from 40 mg twice daily to 40 mg daily and stop the Carafate.. Clinically overall he was doing much better by 03/01/2023 however he was having some lightheadedness with standing and orthostatic vitals were obtained. He was found to be orthostatic positive and his Lasix was transitioned from IV to p.o. he remained orthostatic positive and I gave him 1 L of IV fluids which made no overt change in his orthostasis. We did note that his hemoglobin had stabilized however was down considerably from his baseline between 7 and 8 therefore we gave him 1 unit of packed red blood cells on 03/02/2023. His repeat orthostatic vitals were normal on the a.m. of 03/03/2023. We checked an ambulatory pulse ox prior to discharge and he required no supplemental oxygen at rest or with exertion. We discussed the possibility of home health care and therapy services with him at discharge and he declined but was interested in palliative care services and a referral was made prior to his discharge. His renal function is not normal at baseline and has been higher than it was typically all over trending down when compared to previous laboratory data in October. I discussed with him following up with nephrology which is something he had not done before. I gave him a referral to Dr. Zaragoza and instructed him to call on Monday to make an appointment. I have held his losartan in the meantime and told him to hold this until he follows up with nephrology and can be further evaluated. He is also to call on Monday to set up a follow-up appointment with Dr. Gonzales as he will need a repeat EGD in about 2 to 3 months for reevaluation of the areas that were cauterized and his Tuttle's esophagus after treatment. I have also asked him to follow-up with cardiology as soon as appointment can be obtained and his primary care physician within the next 2 weeks. He was discharged home in stable condition with prescriptions for Lasix, Cinacalcet (he had run out), Protonix, and Carafate as noted above. Discharge diagnoses: Shortness of breath-resolved Decompensated heart failure with preserved ejection fraction--> acute on chronic-resolved Hypoxia-resolved Lightheadedness with positive orthostatic vital signs-resolved Acute on chronic anemia-stable Upper GI bleed Gastric ulcer CKD FAVIAN CAD Hypertension Hyperlipidemia DM-2 History of hypercalcemia secondary to hyperparathyroidism Chronic pain Depression Anxiety Obesity FAVIAN Physical Exam Narrative Patient states his lightheadedness is resolved. Orthostatic vitals were now negative after blood transfusion. Is stable on room air requiring no supplemental oxygen. Plan for discharge home later today. Patient defers any home health care or outpatient physical therapy but was amenable to palliative care referral which was made prior to discharge. Const alert, oriented x3, no apparent distress and well nourished Constitutional Narrative: Obese, upper middle-aged white male, sitting in a chair at the bedside, nursing at bedside, appears much older than stated age, appears comfortable and nontoxic General Appearance: cooperative, comfortable, well kempt and well developed Orientation / Consciousness: awake, oriented to person, oriented to place and oriented to time HEENT normocephalic, head/scalp atraumatic and moist oral mucous membranes HEENT Narrative: Mild hearing loss, Mallampati 3, no thrush Eyes PERRL, EOMs intact bilaterally and conjunctivae normal Neck no lymphadenopathy, supple and no JVD Neck Narrative: Trachea midline, thyroid not enlarged Resp normal respiratory effort, no retractions, no use of accessory muscles and clear to auscultation bilaterally Auscultation: Negative for crackles, rhonchi or wheezes Cardio S1 normal heart sound, S2 normal heart sound, no murmurs, no rub, no gallops and no clicks Cardio Narrative: Heart rate and rhythm is irregular GI normal to inspection, nondistended, normoactive bowel sounds, soft to palpation and non-tender Extremity no clubbing, cyanosis or edema Skin no rashes or lesions noted, no wounds, skin turgor normal and no jaundice Neuro oriented x3, moves all extremities, no focal motor deficits and no sensory deficits noted Sensorium / Orientation: awake, alert, oriented to person, oriented to place and oriented to time Speech: speech normal Psych Psych Narrative: Affect is mildly flat however eye contact is good and patient interacts appropriately Weight / BMI Weight Weight: 110 kg Body Mass Index (BMI) 34.7 ABG / Lab / Microbiology Data 03/03/23 05:15 03/03/23 05:15 Laboratory: Laboratory Results - last 24 hr 03/02/23 15:40: Blood Type A POSITIVE, Antibody Screen NEGATIVE, Crossmatch See Detail 03/02/23 16:10: POC Glucose 188 H 03/02/23 21:06: POC Glucose 210 H 03/03/23 05:15: WBC 10.6, RBC 3.12 L, Hgb 9.1 L, Hct 29.8 L, MCV 95.5 H, MCH 29.2, MCHC 30.5 L, RDW Std Deviation 58.5 H, RDW Coeff of Thao 18.5 H, Plt Count 311, MPV 9.4, Immature Gran % (Auto) 1.900 H, Neut % (Auto) 76.7 H, Lymph % (Auto) 7.0 L, Andrews % (Auto) 12.5 H, Eos % (Auto) 1.5, Baso % (Auto) 0.4, Absolute Neuts (auto) 8.1 H, Absolute Lymphs (auto) 0.74 L, Nucleated RBC % 0.8, Sodium 142, Potassium 3.7, Chloride 110 H, Carbon Dioxide 24.0, Anion Gap 8, BUN 59 H, Creatinine 2.47 H, Estim Creat Clear Calc 30.38, Est GFR (MDRD) Af Amer 34 L, Est GFR (MDRD) Non-Af 28 L, BUN/Creatinine Ratio 23.9 H, Glucose 151 H, Calcium 9.5, Phosphorus 2.9, Magnesium 2.0 03/03/23 06:06: POC Glucose 160 H 03/03/23 11:10: POC Glucose 250 H D/C Instructions Discharge Diet: Low fat / Low cholesterol (Try to limit fluid intake to 2 L or less daily), 1800 Calorie Control Diet and 2000 mg Sodium Diet Meaningful Use Info Meaningful Use Diagnoses (Choose all that apply): None applicable and CHF CHF LUCIAN/ARB ordered at discharge?: No Reason LUCIAN/ARB not ordered?: Worsening renal disease Documented LVEF (%): 55 Discharge Plan Admission Admit Date/Time: 02/26/23 03:00 Primary Reason for Your Visit: Shortness of breath Attending Provider: Cornelia Burns Primary Care Provider: Mery Raymond Consulting Providers: Lyle Coleman; Cody Sears; Tunde Miller Instructions Additional Instructions / Restrictions: 1. Please call on Monday to make appointment for specialists to be seen as soon as you can get into see them Discharge Orders/Prescriptions Prescriptions: New sucralfate 1 gram Tablet 1 g PO 0700,1100,1600 Qty: 90 1RF pantoprazole 40 mg Tablet,Delayed Release (Dr/Ec) 40 mg PO BID Qty: 60 2RF Rx Instructions: Take 40 mg twice daily for 8 weeks then decrease dose to 40 mg daily Continued (DME) Handicap Placard See Rx Instructions .ROUTE .MEDSUPPLY Qty: 1 0RF Rx Instructions: As directed, length of time 3 years (DME) FreeStyle Tiffanie 2 [place] Misc See Rx Instructions .ROUTE .MEDSUPPLY Qty: 1 0RF Rx Instructions: As directed (DME) FreeStyle Tiffanie 2 Sensor Kit See Rx Instructions .ROUTE .MEDSUPPLY Qty: 2 6RF Rx Instructions: As directed ferrous sulfate 325 mg (65 mg iron) tablet 325 mg PO DAILY Qty: 90 1RF (DME) OneTouch Verio test strips Strip See Rx Instructions .ROUTE .MEDSUPPLY Qty: 100 12RF Rx Instructions: test 3 times daily acetaminophen 650 mg suppository 650 mg DE Q4H PRN (Reason: fever or pain) aluminum-magnesium hydroxide 225-200 mg/5 mL suspension 30 ml PO DAILY PRN (Reason: GI DISTRESS) bisacodyl 10 mg suppository 10 mg DE DAILY PRN (Reason: constipation) Enema 19-7 gram/118 mL enema 118 ml DE DAILY PRN (Reason: constipation) glucagon HCl [Glucagon (HCl) Emergency Kit] 1 mg recon soln 1 mg IM Q20M PRN (Reason: hypoglycemia) Rx Instructions: until target blood sugar attained dextrose [Glucose Gel] 40 % gel 15 g PO Q15M PRN (Reason: hypoglycemia) Rx Instructions: until symptoms of low blood sugar are controlled guaifenesin 200 mg/5 mL liquid 200 mg PO Q4H PRN (Reason: congestion) magnesium hydroxide [Milk of Magnesia] 400 mg/5 mL suspension 30 ml PO DAILY PRN (Reason: constipation) insulin glargine [Lantus Solostar U-100 Insulin] 100 unit/mL (3 mL) insulin pen 7 unit subcut DAILY Qty: 15 3RF Rx Instructions: Hold if glucose less than 130 mg/dl tramadol 50 mg Tablet 50 mg PO Q6H PRN PRN (Reason: Pain Score 6-10) 3 Days Qty: 10 0RF Humulin R U-500 (Conc) Kwikpen 500 unit/mL (3 mL) insulin pen 30 unit SUBCUT .TIDCM furosemide 20 mg tablet 40 mg PO BID 90 Days Qty: 60 0RF cinacalcet 30 mg tablet 30 mg PO BID Qty: 60 0RF (DME) pen needle, diabetic [BD Ultra-Fine Lorie Pen Needle] 32 gauge x 5/32 needle See Rx Instructions .ROUTE .MEDSUPPLY Qty: 360 5RF Rx Instructions: 4x/day cholecalciferol (vitamin D3) 1,250 mcg (50,000 unit) capsule 1,250 mcg PO QWEEK Qty: 8 6RF metoprolol succinate 50 mg tablet extended release 24 hr 50 mg PO BID Qty: 180 3RF clopidogrel 75 mg tablet 75 mg PO DAILY Qty: 90 3RF fenofibrate micronized 200 mg capsule 200 mg PO DAILY Qty: 30 12RF potassium chloride 20 mEq tablet,ER particles/crystals 20 meq PO BID 90 Days Qty: 540 1RF amlodipine 10 mg tablet 10 mg PO DAILY Qty: 90 3RF ranolazine 500 mg tablet extended release 12 hr 500 mg PO BID Qty: 180 3RF Ozempic 1 mg/dose (4 mg/3 mL) pen injector 1 mg subcut QWEEK Qty: 3 4RF Patient Comments: Last shot was on MondayFebruary 24. nitroglycerin 0.4 mg tablet, sublingual See Rx Instructions .ROUTE .COMPLEX Qty: 25 10RF Dose Instruction: DISSOLVE 1 TABLET UNDER THE TONGUE NEEDED FOR CHEST PAIN EVERY 5 MINUTES UP TO 3 TIMES. IF NO RELIEF CALL 911. Rx Instructions: DISSOLVE 1 TABLET UNDER THE TONGUE NEEDED FOR CHEST PAIN EVERY 5 MINUTES UP TO 3 TIMES. IF NO RELIEF CALL 911. paroxetine HCl 40 mg tablet 40 mg PO DAILY Qty: 90 3RF Rx Instructions: TAKE 1 TABLET BY MOUTH ONCE DAILY Held losartan 25 mg tablet 25 mg PO DAILY Qty: 90 3RF Hold Instructions: until you see nephrology Discontinued Eliquis 5 mg Tablet 5 mg PO BID Qty: 30 0RF Referrals / Follow Up: Mery Raymond MD [Primary Care Provider] - Within 2 Weeks Disposition Disposition (needs filled in before D/C Order can be placed): Home, Self Care Charges/Coding Visit Charges Inpatient E&M: 27726 Disch Hosp >30min
== END 2023-03-03 14:54 | disposition home or self-care (01) | DRG 291 ==
LOC: ED 02:34 → PCU 04:57
PROVIDERS: Anesthesiology; Hospitalist; Internal Medicine; Internal Medicine Gastroenterology; Admitting Provider Hospitalist; Emergency Provider Emergency Medicine; PCP Internal Medicine; Visit Provider Internal Medicine
PROC: 0DJ08ZZ Inspection of Upper Intestinal Tract, Via Natural or Artificial Opening Endoscopic (ICD-10-PCS; CPT 43235; principal; 2023-02-28 06:55)
DX: I13.0 Hypertensive heart and chronic kidney disease with heart failure and stage 1 through stage 4 chronic kidney disease, or unspecified chronic kidney disease (principal); I50.33 Acute on chronic diastolic (congestive) heart failure; K25.4 Chronic or unspecified gastric ulcer with hemorrhage; N17.9 Acute kidney failure, unspecified; D62 Acute posthemorrhagic anemia; I48.20 Chronic atrial fibrillation, unspecified; K31.84 Gastroparesis; I95.9 Hypotension, unspecified; E11.22 Type 2 diabetes mellitus with diabetic chronic kidney disease; E11.43 Type 2 diabetes mellitus with diabetic autonomic (poly)neuropathy; N18.31 Chronic kidney disease, stage 3a; Z79.4 Long term (current) use of insulin; F32.A Depression, unspecified; I34.0 Nonrheumatic mitral (valve) insufficiency; E78.00 Pure hypercholesterolemia, unspecified; I25.10 Atherosclerotic heart disease of native coronary artery without angina pectoris; G47.33 Obstructive sleep apnea (adult) (pediatric); K44.9 Diaphragmatic hernia without obstruction or gangrene; K22.70 Barrett's esophagus without dysplasia; K29.70 Gastritis, unspecified, without bleeding; F41.9 Anxiety disorder, unspecified; E66.9 Obesity, unspecified; Z91.148 Patient's other noncompliance with medication regimen for other reason; T38.1X6A Underdosing of thyroid hormones and substitutes, initial encounter; T50.1X6A Underdosing of loop [high-ceiling] diuretics, initial encounter; R09.02 Hypoxemia; Z23 Encounter for immunization; Z79.82 Long term (current) use of aspirin; Z79.02 Long term (current) use of antithrombotics/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; Z95.5 Presence of coronary angioplasty implant and graft; Z79.85 Long-term (current) use of injectable non-insulin antidiabetic drugs; Z79.899 Other long term (current) drug therapy; Z68.37 Body mass index [BMI] 37.0-37.9, adult; Z68.34 Body mass index [BMI] 34.0-34.9, adult
CPT/HCPCS: 36415; 71045; 80048; 81002; 82962; 83036; 83735; 83880; 84100; 84443; 84450; 84460; 84484; 85014; 85018; 85025; 85027; 85610; 85730; 86850; 86900; 86901; 86920; 86922; 88305; 88313; 88341; 88342; 93005; 94640; 97110; 97112; 97116; 97162; 97166; 97530; 97802; 97803; 99285; J7030; J7040; J7120; P9016; 90662; A4216; J1940; J2405; J3490

== ENCOUNTER 2023-03-13 16:02 | Inpatient (IN) | payer MEDICARE, SELFPAY ==
[2023-03-13] VITALS (14 sets, daily range): BP systolic 112–145; BP diastolic 56–110; PULSE 72–89; RESP 14–27; TEMP 36.3–36.6; O2SAT 91–100; BMI 43.3; BMI 38.5; BMI 35.8
--- NOTE | 2023-03-13 16:57 | ED.VIS.GI ---
HPI <ANJEL Schrader - Last Filed: 03/13/23 20:24> HPI - GI History of Present Illness Chief Complaint: GI Bleed Narrative Narrative: Presenting today due to multiple episodes of black stool that he has had since yesterday. Patient reports a recent GI bleed after having multiple episodes of hematemesis while admitted here at the hospital on 02/27/2023. An EGD was performed by Dr. Gonzales and the gastric ulcers were cauterized. 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 He also reports having left lower quadrant abdominal pain that started yesterday. He denies any fever, chills, vomiting, and diarrhea. [facility] <ANJEL Schrader - Last Filed: 03/13/23 20:24> [facility] Medical History Abnormal chest xray Acquired left ventricular hypertrophy Acute midline thoracic back pain Adult failure to thrive Anemia Anxiety and depression Arthritis Asthma Atherosclerosis of coronary artery of [place] heart without angina pectoris Atrial fibrillation Benign essential HTN Chest pain Chronic hypoxemic respiratory failure Chronic pain of both knees Chronic wound of head Colon cancer screening Congestive heart failure Dark stools Debility Depression Diabetes Dizziness MEANS (dyspnea on exertion) Dyspnea on exertion Essential (primary) hypertension Fatigue Gastric ulcer GI bleed Health care maintenance Heart failure with preserved ejection fraction History of DVT (deep vein thrombosis) History of pulmonary embolism Hypercalcemia Hyperlipidemia Hyperparathyroidism Hypertriglyceridemia Hypoxia Insomnia Morbid obesity with BMI of 40.0-44.9, adult Near syncope Obesity Olecranon bursitis FAVIAN (obstructive sleep apnea) Osteoarthritis Osteopenia Primary hyperparathyroidism Pure hypercholesterolemia Renal insufficiency Sciatica Secondary pulmonary hypertension Seizures Shortness of breath Stage 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 disease (CKD) Type 2 diabetes mellitus Vertigo Vitamin D deficiency Home Medications Handicap Placard #1 ea 04/08/20 [Rx Last Taken Unknown] flash glucose scanning reader (FreeStyle Tiffanie 2 [place]) #1 ea 02/16/21 [Rx Last Taken Unknown] flash glucose sensor (FreeStyle Tiffanie 2 Sensor kit) #2 ea 02/16/21 [Rx Last Taken Unknown] pen needle, diabetic 32 gauge x 5/32 (BD Ultra-Fine Lorie Pen Needle) #360 ea 04/08/22 [Rx Last Taken Unknown] ferrous sulfate 325 mg (65 mg iron) tablet 325 mg PO DAILY #90 tabs 08/18/22 [Rx Last Taken 10/16/22] cholecalciferol (vitamin D3) 1,250 mcg (50,000 unit) capsule 1,250 mcg PO QWEEK #8 caps 09/07/22 [Rx Last Taken 10/10/22] metoprolol succinate 50 mg tablet,extended release 24 hr 50 mg PO BID BLOOD PRESSURE #180 tabs 09/21/22 [Rx Last Taken 10/16/22] clopidogrel 75 mg tablet 75 mg PO DAILY BLOOD THINNER #90 tabs 10/03/22 [Rx Last Taken 02/25/23] dextrose 40 % oral gel (Glucose Gel) 15 g PO Q15M PRN hypoglycemia 10/20/22 [History Last Taken Unknown] fenofibrate micronized 200 mg capsule 200 mg PO DAILY cholesterol #30 caps 10/20/22 [Rx Last Taken Unknown] glucagon HCl 1 mg solution for injection (Glucagon (HCl) Emergency Kit) 1 mg IM Q20M PRN hypoglycemia 10/20/22 [History Last Taken Unknown] guaifenesin 200 mg/5 mL oral liquid 200 mg PO Q4H PRN congestion 10/20/22 [History Last Taken Unknown] magnesium hydroxide 400 mg/5 mL oral suspension (Milk of Magnesia) 30 ml PO DAILY PRN constipation 10/20/22 [History Last Taken Unknown] sodium phosphates 19 gram-7 gram/118 mL enema (Enema) 118 ml WA DAILY PRN constipation 10/20/22 [History Last Taken Unknown] amlodipine 10 mg tablet 10 mg PO DAILY BLOOD PRESSURE #90 tabs 11/18/22 [Rx Last Taken 02/25/23] losartan 25 mg tablet 25 mg PO DAILY blood pressure #90 tabs 12/08/22 [Rx Last Taken Unknown] ranolazine 500 mg tablet,extended release,12 hr 500 mg PO BID chest pain #180 tabs 12/20/22 [Rx Last Taken Unknown] nitroglycerin 0.4 mg sublingual tablet See Rx Instructions .Route .COMPLEX chest pain #25 tabs 01/18/23 [Rx Last Taken Unknown] paroxetine HCl 40 mg tablet 40 mg PO DAILY depression #90 tabs 02/09/23 [Rx Last Taken Unknown] insulin regular hum U-500 conc 500 unit/mL(3 mL) subcut pen (Humulin R U-500 (Conc) Insulin Kwikpen) 30 unit subcut TID blood sugar 02/26/23 [History Last Taken 02/25/23] furosemide 20 mg tablet 40 mg (2 x 20 mg) PO BID 90 days #60 tabs 03/03/23 [Rx Last Taken Unknown] pantoprazole 40 mg tablet,delayed release 40 mg PO BID #60 tabs 03/03/23 [Rx Last Taken Unknown] sucralfate 1 gram tablet 1 g PO 0700,1100,1600 #90 tabs 03/03/23 [Rx Last Taken Unknown] Ozempic 1 mg/dose (4 mg/3 mL) subcutaneous pen injector (semaglutide) 1 mg (0.75 mL) subcut QWEEK weight loss #3 mL 03/07/23 [Rx Last Taken Unknown] blood sugar diagnostic ([facility] Verio test strips) #100 ea 03/07/23 [Rx Last Taken Unknown] cinacalcet 30 mg tablet 30 mg PO BID hypercalcemia #60 tabs 03/07/23 [Rx Last Taken Unknown] potassium chloride 20 mEq tablet,extended release(part/cryst) 20 meq PO TID potassium 03/13/23 [History Last Taken Unknown] Allergy/AdvReac Type Severity Reaction Status Date / Time No Known Allergies Allergy Verified 03/07/23 10:17 Family History Mother Colon cancer Sister CAD (coronary artery disease) CABG x 5 Diabetes Myocardial infarction, Onset Age: 67 Father Crohns disease Surgical History History of appendectomy 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 Smoking Status: Never smoker second hand exposure: Yes alcohol intake: former year quit: 2003 details: Sober since 2003. substance use type: former substance user Date of last use: 04/10/2004 and marijuana caffeine: Yes Type: carbonated beverages Number of servings: 2 and coffee Number of servings: 2 what type of physical activity do you participate in: none ROS <ANJEL Schrader - Last Filed: 03/13/23 20:24> ROS ED Constitutional Constitutional ED: Denies chills or fever(s) Cardiovascular Cardiovascular: Denies chest pain Respiratory/Chest Respiratory/Chest: Denies cough or dyspnea Gastrointestinal Gastrointestinal: Reports abdominal pain and melena; Denies constipation, diarrhea, nausea or vomiting Genitourinary Genitourinary ED: Denies dysuria, hematuria or urinary frequency Musculoskeletal Musculoskeletal: Denies arthralgias or myalgias Integumentary Denies rash Neurologic Neurologic: Denies weakness EXAM <ANJEL Schrader - Last Filed: 03/13/23 20:24> Physical Exam Const Vital Signs: 03/13/23 16:02 03/13/23 16:02 03/13/23 18:01 Temperature 97.7 F L Temperature Source Oral Pulse Rate 89 78 87 Respiratory Rate 16 16 14 Blood Pressure 129/56 H 129/56 H 112/86 H Blood Pressure Mean 80 80 94 Blood Pressure Source Pulse Ox 98 98 100 Oxygen Delivery Method Room Air Room Air Room Air 03/13/23 18:57 03/13/23 19:08 03/13/23 19:00 Temperature 97.4 F L 97.3 F L Temperature Source Temporal Temporal Pulse Rate 72 75 75 Respiratory Rate 16 16 20 H Blood Pressure 126/73 H 122/74 H 127/71 H Blood Pressure Mean 90 90 89 Blood Pressure Source Pulse Ox 100 98 98 Oxygen Delivery Method Room Air Room Air 03/13/23 19:15 03/13/23 20:00 Temperature Temperature Source Pulse Rate 86 78 Respiratory Rate 16 16 Blood Pressure 126/67 H Blood Pressure Mean 86 Blood Pressure Source Monitor Pulse Ox 97 94 Oxygen Delivery Method Room Air Room Air Positive well nourished, well developed and no apparent distress General Appearance ED: well developed HEENT Reports normocephalic and head/scalp atraumatic Mouth ED: Yes moist mucous membranes normal Eyes PERRL and EOMs intact bilaterally Neck full ROM and supple Chest Wall inspection of chest normal Resp normal respiratory effort and clear to auscultation bilaterally Cardio regular rate and regular rhythm GI soft to palpation, non-distended and no masses GI Narrative: Mild tenderness to palpation to the left lower quadrant. Rigidity, guarding, or peritoneal signs. Rectal examination: Normal sphincter tone, melena noted. Back/Spine normal ROM and normal to inspection Extremity normal to inspection and full ROM Neuro oriented x3, CN's II-XII intact bilaterally, moves all extremities, no focal motor deficits and no sensory deficits noted Sensorium / Orientation: awake and alert Psych mental status grossly normal and thought process normal Skin no rashes or lesions noted and no wounds <Dr. Linus Yanez MD - Last Filed: 03/13/23 22:29> Physical Exam Const Vital Signs: 03/13/23 16:02 03/13/23 16:02 03/13/23 18:01 Temperature 97.7 F L Temperature Source Oral Pulse Rate 89 78 87 Respiratory Rate 16 16 14 Blood Pressure 129/56 H 129/56 H 112/86 H Blood Pressure Mean 80 80 94 Blood Pressure Source Pulse Ox 98 98 100 Oxygen Delivery Method Room Air Room Air Room Air 03/13/23 18:57 03/13/23 19:08 03/13/23 19:00 Temperature 97.4 F L 97.3 F L Temperature Source Temporal Temporal Pulse Rate 72 75 75 Respiratory Rate 16 16 20 H Blood Pressure 126/73 H 122/74 H 127/71 H Blood Pressure Mean 90 90 89 Blood Pressure Source Pulse Ox 100 98 98 Oxygen Delivery Method Room Air Room Air 03/13/23 19:15 03/13/23 20:00 Temperature Temperature Source Pulse Rate 86 78 Respiratory Rate 16 16 Blood Pressure 126/67 H Blood Pressure Mean 86 Blood Pressure Source Monitor Pulse Ox 97 94 Oxygen Delivery Method Room Air Room Air [facility] <ANJEL Schrader - Last Filed: 03/13/23 20:24> [facility] Narrative Medical decision making narrative: Patient presenting due to dark and tarry stools that started yesterday. Recent history of GI bleed that was found on 02/27/2023 when he was admitted here to the hospital for shortness of breath and then developed hematemesis. Patient is on Plavix, he is not sure if he is on Eliquis or not. He is pale. Labs will be obtained, hemoglobin is 5.8, hematocrit 19.0. BUN 70, creatinine 2.34. Potassium 3.0. Patient was crossmatched 2 units of blood. He was given a bolus of Protonix and IV fluids. CT of the abdomen and pelvis obtained and is unremarkable. I did speak with Dr. Gonzales who recommends starting octreotide and Protonix drip. I spoke with the hospitalist and patient will be admitted to the ICU in stable condition. Lab Data Attestation: I reviewed the patient's lab results. Labs: Laboratory Results - last 24 hr 03/13/23 17:08 WBC 8.0 RBC 1.99 L Hgb 5.8 L* Hct 19.0 L MCV 95.5 H MCH 29.1 MCHC 30.5 L RDW Std Deviation 60.0 H RDW Coeff of Thao 18.3 H Plt Count TNP MPV 9.2 Immature Gran % (Auto) 1.600 H Neut % (Auto) 77.8 H Lymph % (Auto) 7.5 L Ness % (Auto) 11.3 H Eos % (Auto) 1.3 Baso % (Auto) 0.5 Absolute Neuts (auto) 6.2 Absolute Lymphs (auto) 0.60 L Nucleated RBC % 0.8 Differential Comment SEE COMMENT Diff Path Review May foll Platelet Estimate ADEQUATE RBC Morphology N CHROM Anisocytosis RARE Macrocytosis RARE Sodium 139 Potassium 3.0 L Chloride 105 Carbon Dioxide 26.0 Anion Gap 8 BUN 70 H Creatinine 2.34 H Estim Creat Clear Calc 32.06 Est GFR (MDRD) Af Amer 36 L Est GFR (MDRD) Non-Af 30 L BUN/Creatinine Ratio 29.9 H Glucose 183 H Calcium 8.7 Total Bilirubin 0.60 AST 11 L ALT 24 Alkaline Phosphatase 35 L Total Protein 5.6 L Albumin 2.8 L Globulin 2.8 Albumin/Globulin Ratio 1.0 Lipase 97 H Blood Type A POSITIVE Antibody Screen NEGATIVE Crossmatch See Detail Radiography Diagnostic Testing: Clinical Impression(s) from Imaging Studies Abdomen/Pelvis CT 03/13/23 18:25 IMPRESSION: Bilateral adrenal nodules. Bilateral nonobstructing renal calculi. Right renal cysts. Small fatty umbilical hernia. Electronically Signed: El Mota DO at 19:05 EST Reading Location ID and State: [facility] / [place] Tel [phone], Service support , <Dr. Linus Yanez MD - Last Filed: 03/13/23 22:29> MDM Lab Data Labs: Laboratory Results - last 24 hr 03/13/23 17:08 WBC 8.0 RBC 1.99 L Hgb 5.8 L* Hct 19.0 L MCV 95.5 H MCH 29.1 MCHC 30.5 L RDW Std Deviation 60.0 H RDW Coeff of Thao 18.3 H Plt Count TNP MPV 9.2 Immature Gran % (Auto) 1.600 H Neut % (Auto) 77.8 H Lymph % (Auto) 7.5 L Ness % (Auto) 11.3 H Eos % (Auto) 1.3 Baso % (Auto) 0.5 Absolute Neuts (auto) 6.2 Absolute Lymphs (auto) 0.60 L Nucleated RBC % 0.8 Differential Comment SEE COMMENT Diff Path Review May foll Platelet Estimate ADEQUATE RBC Morphology N CHROM Anisocytosis RARE Macrocytosis RARE Sodium 139 Potassium 3.0 L Chloride 105 Carbon Dioxide 26.0 Anion Gap 8 BUN 70 H Creatinine 2.34 H Estim Creat Clear Calc 32.06 Est GFR (MDRD) Af Amer 36 L Est GFR (MDRD) Non-Af 30 L BUN/Creatinine Ratio 29.9 H Glucose 183 H Calcium 8.7 Total Bilirubin 0.60 AST 11 L ALT 24 Alkaline Phosphatase 35 L Total Protein 5.6 L Albumin 2.8 L Globulin 2.8 Albumin/Globulin Ratio 1.0 Lipase 97 H Blood Type A POSITIVE Antibody Screen NEGATIVE Crossmatch See Detail Radiography Diagnostic Testing: Clinical Impression(s) from Imaging Studies Abdomen/Pelvis CT 03/13/23 18:25 IMPRESSION: Bilateral adrenal nodules. Bilateral nonobstructing renal calculi. Right renal cysts. Small fatty umbilical hernia. Electronically Signed: El Mota DO at 19:05 EST Reading Location ID and State: [facility] / [place] Tel [phone], Service support , Treatment and Re-Evaluation :: I have personally performed a face to face assessment of the patient and have reviewed the CHU Note. I performed a substantive portion of the visit including all aspects of the following. My hernandez findings include: History: Patient presents with black bowel movements. He was in the hospital recently. He had GI bleed in the hospital and had sclerosis of a bleeding area in the stomach by endoscopy with Dr. Gonzales. He states he had some black bowel movements after that but then they got normal color. They have come back over the last few days and been black again. He also notices some overall increased weakness. He is on Plavix. He thinks he might be on Eliquis but is not sure. Exam: Patient does look pale. But no nontoxic and his breathing looks comfortable. Heart is actually regular rate. Lungs are clear. Saturations are normal. Abdomen had small amount of tenderness to the left lower quadrant. It was quite small. But with a history of diverticulitis, and black stools we will do a scan at this time. Medical Decision Making: Blood work, type and screen and transfusion. I discussed with him transfusion. We are also pending the scan. Discharge Plan Dx/Rx/DC Orders Clinical Impression: Acute kidney injury, Complaint of melena, detention current use of antithrombotics/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, Acute GI bleeding, Abdominal pain, Hypokalemia Disposition Disposition: Acute Care Hospital [facility] Discharge Date/Time: 03/13/23 21:38
[2023-03-13] MEDS: 0.9% Normal Saline (1000mL) 1,000 ML 1000 ML IV (17:15)
[2023-03-13] MEDS: Pantoprazole Sodium 80 MG in 0.9% Normal Saline (50mL Bag) 15 ML 420 MG IV BOLUS (17:15)
[2023-03-13 17:22] LABS: Absolute Neutrophil Count 6.2 X10^3/uL (2.0-7.7); Basophil# 0.04 X10^3/uL; Basophil% 0.5 % (0-1); Eosinophils% 1.3 % (0-5); Lymphocyte % 7.5 % (19-41); Mean Corp Hgb Conc 30.5 g/dL (32-36); Mean Corpuscular Hgb 29.1 pg (27.0-32.0); Mean Corpuscular Volume 95.5 fL (80-94); Mean Platelet Vol. 9.2 fl (6.2-12.0); Monocyte% 11.3 % (0-10); NRBC Flagged by Analyzer 0.8 % (0-5); Neutrophil # 6.23 X10^3/uL (2.7-7.7); Neutrophil % 77.8 % (47-70); POSITIVE COUNT YES; POSITIVE DIFFERENTIAL YES; RBC Distribution Width CV 18.3 % (11.6-14.6); Red Blood Count 1.99 M/mm3 (4.6-6.2)
[2023-03-13 17:30] LABS: Differential Indicated SCAN CRITERIA MET; Hemoglobin 5.8 g/dL (13.0-16.5)
[2023-03-13 17:37] LABS: AST(SGOT) 11 U/L (15-37); Alanine Aminotransfer ALT/SGPT 24 U/L (16-61); Albumin, Serum 2.8 g/dL (3.2-5.0); Alkaline Phosphatase 35 U/L (45-117); Anion Gap 8 (5-15); BUN 70 mg/dL (7-18); BUN/Creat Ratio 29.9 RATIO (10-20); Calcium,Total 8.7 mg/dL (8.5-10.1); Chloride 105 mmol/L (98-107); Creatinine, Serum 2.34 mg/dL (0.70-1.30); EST Glomerular Filtration Rate 30 mL/min (>60); Est Glom Filt Rate - Afr Amer 36 mL/min (>60); Estimated Creatinine Clearance 32.06 ml/min; Globulin 2.8 g/dL (2.2-4.2); Glucose 183 mg/dL (74-106); Lipase 97 U/L (13-75); Protein, Total 5.6 g/dL (6.4-8.2); Sodium Level 139 mmol/L (136-145)
[2023-03-13 18:11] LABS: Anisocytosis RARE; Macrocytosis RARE; Platelet Estimate ADEQUATE (ADEQ); Red Cell Morphology N CHROM NORMAL (NORM C&C)
--- NOTE | 2023-03-13 18:25 | CT_ITS ---
STUDY: CT ABDOMEN AND PELVIS WITHOUT CONTRAST REASON FOR EXAM: Male, 67 years old. abdominal pain RADIATION DOSAGE (If Supplied By Facility): CTDIvol = ( 21.97 ) mGy, DLP = ( 1279.22 ) mGycm TECHNIQUE: Transaxial images were obtained from the dome of the diaphragm to the symphysis pubis without oral contrast, and without intravenous contrast. Sagittal and coronal images were reconstructed. Individualized dose optimization techniques were used for this CT. COMPARISON: None. FINDINGS: The visualized lung bases are unremarkable. The visualized portions of the heart are within normal limits. Normal liver. Normal gallbladder and extrahepatic biliary system. Normal spleen. Normal pancreas. 1.7 cm bilateral adrenal nodules. Up to 2.6 cm cysts and up to 10 mm calculi in the right kidney. Up to 2 mm calculi in the left kidney. Normal visualized stomach. Normal small intestine. Diverticulosis of the colon. The appendix is not visualized. Normal abdominal aorta. Normal inferior vena cava. Normal retroperitoneum. Normal urinary bladder. Small fatty umbilical hernia. Bilateral hip prosthesis with artifact limiting the lower pelvic images. CT/Abdomen/Pelvis without Cont IMPRESSION: Bilateral adrenal nodules. Bilateral nonobstructing renal calculi. Right renal cysts. Small fatty umbilical hernia. Electronically Signed: El Mota DO at 19:05 EST Reading Location ID and State: [facility] / [place] Tel [phone], Service support ,
--- NOTE | 2023-03-13 19:17 | HP.PCM.HOS_ITS ---
[facility] - [facility] General Date of Admission: 03/13/23 Date of Service: 03/13/23 Chief Complaint: Dark Tarry Stools with Recent UGIB 2/2 PUD. [facility] Narrative ELIANE KAY, is a 67 M with a past medical history of essential hypertension, hyperlipidemia, obesity; with BMI of 38.5 this admission, obstructive sleep apnea; on CPAP, diabetes mellitus type 2; of unknown control, chronic kidney disease; stage III-b, history of coronary artery disease; status post multiple stents with the most recent DANIEL placement 10/21/2022 to the proximal OM-1 curre ntly on baby aspirin and Plavix, history of atrial fibrillation; with patient unsure if he is on Eliquis, secondary pulmonary hypertension, chronic diastolic CHF; with preserved left ventricular ejection fraction and mild mitral regurgitation, history of LVH, history of DVT/PE, history of diverticulitis, history of hypercalcemia due to hyperparathyroidism, remote history of alcohol abuse; with patient reporting being sober since 2003, remote history of cannabis abuse; with last use 2004, depression with anxiety, chronic anemia and recent history of upper GI bleed secondary to peptic ulcer disease with episodes of hematemesis with the patient having been treated by Dr. Gonzales of gastroenterol [place] with EGD and sclerosis of the bleeding area in the stomach approximately 2 weeks ago who presents [facility] ER complaining of dark tarry stools. Mr. Kay reports his symptoms began approximately one day prior to admission with the abrupt onset of severe dark tarry stools. He also noted mild Left lower quadrant abdominal pain that was cramping and is present at this time. He denies associated fever, chills or vomiting but he does admit to mild nausea along with a tendency to strain at his stools with his most recent bleeding episode and left lower quadrant pain seeming to coincide with severe straining. Review of his discharge summary from 03/03/2023 reveals hemoglobin of 7.7 g/dL after he was transfused a total of 3 units of packed red blood cells (with a baseline between 12.5 g/dL and 14 g/dL) with the patient ordered to take Protonix 40 mg p.o. twice daily for 8 weeks and then de-escalate to once daily along with Carafate ordered for 6-weeks. In the ER he was diagnosed with a recurrence of his upper GI bleed likely secondary to peptic ulcer disease com plicated by [id number] blood loss anemia requiring transfusion with a hemoglobin of 5.8 g/dL present on admission complicated by acute kidney injury on chronic kidney disease; stage III-B with a serum creatinine of 2.34 mg/dL and a BUN of 70 mg/dL (with a baseline creatinine of 1.4 to 1.7 mg/dL) he was then admitted to the ICU for ongoing care for stay that is expected to be greater than 48 hours. [facility] Medical History Abnormal chest xray Acquired left ventricular hypertrophy Acute midline thoracic back pain Adult failure to thrive Anemia Anxiety and depression Arthritis Asthma Atherosclerosis of coronary artery of [place] heart without angina pectoris Atrial fibrillation Benign essential HTN Chest pain Chronic hypoxemic respiratory failure Chronic pain of both knees Chronic wound of head Colon cancer screening Congestive heart failure Dark stools Debility Depression Diabetes Dizziness MEANS (dyspnea on exertion) Dyspnea on exertion Essential (primary) hypertension Fatigue Gastric ulcer GI bleed Health care maintenance Heart failure with preserved ejection fraction History of DVT (deep vein thrombosis) History of pulmonary embolism Hypercalcemia Hyperlipidemia Hyperparathyroidism Hypertriglyceridemia Hypoxia Insomnia Morbid obesity with BMI of 40.0-44.9, adult Near syncope Obesity Olecranon bursitis FAVIAN (obstructive sleep apnea) Osteoarthritis Osteopenia Primary hyperparathyroidism Pure hypercholesterolemia Renal insufficiency Sciatica Secondary pulmonary hypertension Seizures Shortness of breath Stage 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 disease (CKD) Type 2 diabetes mellitus Vertigo Vitamin D deficiency Home Medications Handicap Placard #1 ea 04/08/20 [Rx Last Taken Unknown] flash glucose scanning reader (FreeStyle [place] 2 [place]) #1 ea 02/16/21 [Rx Last Taken Unknown] flash glucose sensor (FreeStyle Tiffanie 2 Sensor kit) #2 ea 02/16/21 [Rx Last Taken Unknown] pen needle, diabetic 32 gauge x 5/32 (BD Ultra-Fine Lorie Pen Needle) #360 ea 04/08/22 [Rx Last Taken Unknown] ferrous sulfate 325 mg (65 mg iron) tablet 325 mg PO DAILY #90 tabs 08/18/22 [Rx Last Taken 10/16/22] cholecalciferol (vitamin D3) 1,250 mcg (50,000 unit) capsule 1,250 mcg PO QWEEK #8 caps 09/07/22 [Rx Last Taken 10/10/22] metoprolol succinate 50 mg tablet,extended release 24 hr 50 mg PO BID BLOOD PRESSURE #180 tabs 09/21/22 [Rx Last Taken 10/16/22] clopidogrel 75 mg tablet 75 mg PO DAILY BLOOD THINNER #90 tabs 10/03/22 [Rx Last Taken 02/25/23] dextrose 40 % oral gel (Glucose Gel) 15 g PO Q15M PRN hypoglycemia 10/20/22 [History Last Taken Unknown] fenofibrate micronized 200 mg capsule 200 mg PO DAILY cholesterol #30 caps 10/20/22 [Rx Last Taken Unknown] glucagon HCl 1 mg solution for injection (Glucagon (HCl) Emergency Kit) 1 mg IM Q20M PRN hypoglycemia 10/20/22 [History Last Taken Unknown] guaifenesin 200 mg/5 mL oral liquid 200 mg PO Q4H PRN congestion 10/20/22 [History Last Taken Unknown] magnesium hydroxide 400 mg/5 mL oral suspension (Milk of Magnesia) 30 ml PO DAILY PRN constipation 10/20/22 [History Last Taken Unknown] sodium phosphates 19 gram-7 gram/118 mL enema (Enema) 118 ml [place] DAILY PRN constipation 10/20/22 [History Last Taken Unknown] amlodipine 10 mg tablet 10 mg PO DAILY BLOOD PRESSURE #90 tabs 11/18/22 [Rx Last Taken 02/25/23] losartan 25 mg tablet 25 mg PO DAILY blood pressure #90 tabs 12/08/22 [Rx Last Taken Unknown] ranolazine 500 mg tablet,extended release,12 hr 500 mg PO BID chest pain #180 tabs 12/20/22 [Rx Last Taken Unknown] nitroglycerin 0.4 mg sublingual tablet See Rx Instructions .Route .COMPLEX chest pain #25 tabs 01/18/23 [Rx Last Taken Unknown] paroxetine HCl 40 mg tablet 40 mg PO DAILY depression #90 tabs 02/09/23 [Rx Last Taken Unknown] insulin regular hum U-500 conc 500 unit/mL(3 mL) subcut pen (Humulin R U-500 (Conc) Insulin Kwikpen) 30 unit subcut TID blood sugar 02/26/23 [History Last Taken 02/25/23] furosemide 20 mg tablet 40 mg (2 x 20 mg) PO BID 90 days #60 tabs 03/03/23 [Rx L ast Taken Unknown] pantoprazole 40 mg tablet,delayed release 40 mg PO BID #60 tabs 03/03/23 [Rx Last Taken Unknown] sucralfate 1 gram tablet 1 g PO 0700,1100,1600 #90 tabs 03/03/23 [Rx Last Taken Unknown] Ozempic 1 mg/dose (4 mg/3 mL) subcutaneous pen injector (semaglutide) 1 mg (0.75 mL) subcut QWEEK weight loss #3 mL 03/07/23 [Rx Last Taken Unknown] blood sugar diagnostic ([place] Verio test strips) #100 ea 03/07/23 [Rx Last Taken Unknown] cinacalcet 30 mg tablet 30 mg PO BID hypercalcemia #60 tabs 03/07/23 [Rx Last Taken Unknown] potassium chloride 20 mEq tablet,extended release(part/cryst) 20 meq PO TID potassium 03/13/23 [History Last Taken Unknown] Allergy/AdvReac Type Severity Reaction Status Date / Time No Known Allergies Allergy Verified 03/07/23 10:17 Family History Mother Colon cancer Sister CAD (coronary artery disease) CABG x 5 Diabetes Myocardial infarction, Onset Age: 67 Father Crohns disease Surgical History History of appendectomy 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 Smoking Status: Never smoker second hand exposure: Yes alcohol intake: former year quit: 2003 details: Sober since 2003. substance use type: former substance user Date of last use: 04/10/2004 and marijuana caffeine: Yes Type: carbonated beverages Number of servings: 2 and coffee Number of servings: 2 what type of physical activity do you participate in: none Prior Cardiac Testing/Procedures Prior Cardiac Testing/Procedures: Echocardiogram, Stenting and Cardiac Angiogram ROS ROS Narrative Review of systems: Constitutional: Patient denies fevers or chills. Eyes: Patient denies visual changes. ENT: Patient denies runny nose or sore throat. Cardiovascular: Patient denies chest pain or palpitations. Respiratory: Patient denies shortness of breath or cough. Gastrointestinal: Patient admits to left lower quadrant abdominal pain and melanotic stools. He also admits to constipation with straining at stools seeming to precipitate his symptoms. Genitourinary: Patient denies dysuria, hematuria or urinary frequency. Musculoskeletal: Patient denies arthralgias or myalgias. Integumentary: Patient denies rash. Neurologic: Patient denies headache or focal neurologic weakness. Allergic: Patient denies lip swelling, tongue swelling or urticaria. Hematologic: Patient admits to dark tarry stools. 14 point review of systems otherwise negative except for positives noted above in HPI. Vital Signs Vital Signs Vital Signs: 03/13/23 16:02 03/13/23 16:02 03/13/23 18:01 Temperature 97.7 F L Temperature Source Oral Pulse Rate 89 78 87 Respiratory Rate 16 16 14 Blood Pressure 129/56 H 129/56 H 112/86 H Blood Pressure Mean 80 80 94 Pulse Ox 98 98 100 Oxygen Delivery Method Room Air Room Air Room Air 03/13/23 18:57 03/13/23 19:08 03/13/23 19:00 Temperature 97.4 F L 97.3 F L Temperature Source Temporal Temporal Pulse Rate 72 75 75 Respiratory Rate 16 16 20 H Blood Pressure 126/73 H 122/74 H 127/71 H Blood Pressure Mean 90 90 89 Pulse Ox 100 98 98 Oxygen Delivery Method Room Air Room Air Weight Weight: 268 lb 1.314 oz Body Mass Index (BMI) 38.5 Physical Exam Const alert, oriented x3, no apparent distress and healthy appearing Constitutional Narrative: Patient is obese and pale with a chronically ill appearance. General Appearance: cooperative HEENT normocephalic, head/scalp atraumatic, hearing grossly normal bilaterally, moist oral mucous membranes and oropharynx normal Eyes PERRL and EOMs intact bilaterally Eyes Narrative: Conjunctivae pale. Neck no lymphadenopathy and supple Resp normal respiratory effort, no retractions, no use of accessory muscles and clear to auscultation bilaterally Cardio regular rate and regular rhythm GI normal to inspection, nondistended, normoactive bowel sounds, soft to palpation and non-distended GI Narrative: Mild tenderness to palpation in left lower quadrant. Extremity normal to inspection and full ROM Skin Skin Narrative: Patient has no evidence of rash at this time. But he has noted to be pale. Neuro oriented x3, CN's II-XII intact bilaterally, moves all extremities and no focal motor deficits Sensorium / Orientation: awake, alert, oriented to person, oriented to place and oriented to time Speech: speech normal Motor Exam: strength 5/5 throughout Psych affect normal Results Medical Records Data Attestation: I reviewed the patient's medical records Lab / Micro Data Attestation: I reviewed the patient's lab results. 03/14/23 03:29 03/13/23 17:08 Labs: Laboratory Results - last 24 hr 03/13/23 17:08: WBC 8.0, RBC 1.99 L, Hgb 5.8 L*, Hct 19.0 L, MCV 95.5 H, MCH 29.1, MCHC 30.5 L, RDW Std Deviation 60.0 H, RDW Coeff of Thao 18.3 H, Plt Count TNP, MPV 9.2, Immature Gran % (Auto) 1.600 H, Neut % (Auto) 77.8 H, Lymph % (Auto) 7.5 L, [place] % (Auto) 11.3 H, Eos % (Auto) 1.3, Baso % (Auto) 0.5, Absolute Neuts (auto) 6.2, Absolute Lymphs (auto) 0.60 L, Nucleated RBC % 0.8, Differential Comment SEE COMMENT, Diff Path Review August foll, Platelet Estimate ADEQUATE, RBC Morphology N CHROM, Anisocytosis RARE, Macrocytosis RARE, Sodium 139, Potassium 3.0 L, Chloride 105, Carbon Dioxide 26.0, Anion Gap 8, BUN 70 H, Creatinine 2.34 H, Estim Creat Clear Calc 32.06, Est GFR (MDRD) Af Amer 36 L, Est GFR (MDRD) Non-Af 30 L, BUN/Creatinine Ratio 29.9 H, Glucose 183 H, Calcium 8.7, Total Bilirubin 0.60, AST 11 L, ALT 24, Alkaline Phosphatase 35 L, Total Protein 5.6 L, Albumin 2.8 L, Globulin 2.8, Albumin/Globulin Ratio 1.0, Lipase 97 H, Blood Type A POSITIVE, Antibody Screen NEGATIVE, Crossmatch See Detail Micro: Microbiology 03/13/23 17:08 Stool Stool Occult Blood (ROSA) - Final Occult Blood Positive Imagaing Radiology Impression Abdomen/Pelvis CT 03/13/23 18:25 IMPRESSION: Bilateral adrenal nodules. Bilateral nonobstructing renal calculi. Right renal cysts. Small fatty umbilical hernia. Electronically Signed: El Mota DO at 19:05 EST Reading Location ID and State: [facility] / [place] Tel [phone], Service support , Assessment & Plan Assessment/Plan (1) Acute GI bleeding: (2) Acute on chronic anemia: (3) care home current use of antithrombotics/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: (4) Abdominal pain: QUALIFIERS: Abdominal location: left lower quadrant Qualified Code(s): R10.32 - Left lower quadrant pain (5) Hypokalemia: PLAN: Plan 1. Upper GI bleed with melanotic stools causing [id number] anemia requiring blood transfusion - Admit to ICU. Proceed with transfusion of 2 units of packed red blood cells ordered in the ER. Also keep strict n.p.o. and continue IV Protonix and IV octreotide as previously ordered. Check CBC 2 hours after transfusion is completed and give additional blood if hemoglobin is less than 7 g/dL. Finally, we will consult Dr. Gonzales of gastroenterology for further recommendations regarding repeat EGD and sclerosis with help appreciated in advance. 2. Severe constipation with the patient straining at stools in the setting of a known history of diverticulitis with left lower quadrant abdominal pain setting of a recent admission here for upper GI bleed due to gastric ulcer; status post sclerosis complicating #1 - Patient warned not to strain at his stools. He will need to be placed on a stool softener when he is able to tolerate one. CT scan of the abdomen and pelvis this admission revealed no obvious acute pathologic changes. 3. Coronary artery disease; status post recent proximal obtuse marginal-1 stent on 10/21/2022 exacerbating #1 & #2 - Hold aspirin and Plavix until bleeding can be definitively stopped. Restart as soon it is deemed safe to do so by gastroenterology. 4. Hypokalemia of 3 mmol/L present on admission compounding #1 - #3 - Give IV potassium chloride as drip and bolus and recheck CMP in the a.m. to ensure correction. 5. Acute kidney injury in the setting of stage III-b chronic kidney disease adding to the pathology of #1 - #4 - Volume resuscitate and recheck BMP in the a.m. to ensure improvement. 6. Essential hypertension - Hold scheduled antihypertensives in light of #1. Give IV hydralazine as needed for systolic blood pressure greater than 160 mmHg. 7. Hyperlipidemia - Resume statin when patient is able to tolerate oral intake. 8. Obesity; with BMI of 38.5 this admission plus obstructive sleep apnea on CPAP - Weight loss will be recommended. Continue CPAP as previous. 9. Diabetes mellitus type 2; of unknown control - Keep strict n.p.o. for now. Check fingerstick blood sugars every 6 hours plus give sliding scale insulin. Check HgbA1c to objectively assess quality of diabetic control. 10. History of DVT/PE with patient questionably on Eliquis - We we will avoid anticoagulation in light of #1. Patient will likely need to be clarified with his pharmacy as the patient is unsure at this time. 11. DVT prophylaxis - SCD's only in the setting of active GI hemorrhage. Total time: Approximately 75 minutes. Charges/Coding Visit Charges Inpatient E&M: 97450 Init Hosp L3
[2023-03-13] MEDS: Potassium Chloride 10mEq/100mL 10 MEQ/100 ML IV.SOLN. 50 MEQ IV BOLUS (20:56)
[2023-03-13] MEDS: Octreotide 0.5 MG in Dextrose 5%-Water (250mL Bag) 250 ML 12.5 MG CONT INF (20:56)
[2023-03-13] MEDS: Pantoprazole Sodium 80 MG in 0.9% Normal Saline (100mL Bag) 80 ML 10 MG CONT INF (22:19)
[2023-03-13] MEDS: KCL 20MEQ in 0.9% NS 20 MEQ/1,000 ML IV.SOLN. 150 MEQ IV (22:19)
[2023-03-13 23:43] LABS: Bedside Glucose 122 mg/dL (74-106)
[2023-03-14] VITALS (30 sets, daily range): BP systolic 104–167; BP diastolic 65–113; PULSE 66–93; RESP 16–29; TEMP 36.4–36.8; O2SAT 86–99; BMI 36.2
--- NOTE | 2023-03-14 00:05 | CPS ---
pt refusing to wear bipap.
[2023-03-14 03:39] LABS: Absolute Lymphocyte Count 0.68 X10^3/uL (0.83-4.51); Absolute Neutrophil Count 6.3 X10^3/uL (2.0-7.7); Basophil# 0.06 X10^3/uL; Basophil% 0.7 % (0-1); Eosinophil# 0.14 X10^3/uL; Eosinophils% 1.7 % (0-5); Hematocrit 22.7 % (40-54); Hemoglobin 6.8 g/dL (13.0-16.5); Lymphocyte # 0.68 X10^3/ul (0.83-4.51); Lymphocyte % 8.2 % (19-41); Mean Corpuscular Hgb 28.2 pg (27.0-32.0); Mean Corpuscular Volume 94.2 fL (80-94); Mean Platelet Vol. 9.3 fl (6.2-12.0); Monocyte# 1.05 X10^3/uL; Monocyte% 12.7 % (0-10); NRBC Flagged by Analyzer 0.8 % (0-5); Neutrophil # 6.26 X10^3/uL (2.7-7.7); Neutrophil % 75.5 % (47-70); Platelet Count 274 K/mm3 (150-450); RBC Distribution Width CV 17.9 % (11.6-14.6); RBC Distribution Width SD 58.5 fl (35.1-43.9); Red Blood Count 2.41 M/mm3 (4.6-6.2); White Blood Count 8.3 K/mm3 (4.4-11.0)
[2023-03-14 03:48] LABS: International Normalized Ratio 2.2; Prothrombin Time (Protime)PT. 24.6 SECONDS (11.7-14.9)
[2023-03-14 04:05] LABS: ALB/GLOB Ratio 1.1 RATIO (0.9-2.4); AST(SGOT) 17 U/L (15-37); Alanine Aminotransfer ALT/SGPT 24 U/L (16-61); Albumin, Serum 2.7 g/dL (3.2-5.0); Alkaline Phosphatase 29 U/L (45-117); Anion Gap 6 (5-15); BUN 63 mg/dL (7-18); Calcium,Total 8.1 mg/dL (8.5-10.1); Chloride 111 mmol/L (98-107); EST Glomerular Filtration Rate 34 mL/min (>60); Est Glom Filt Rate - Afr Amer 41 mL/min (>60); Estimated Creatinine Clearance 35.73 ml/min; Globulin 2.5 g/dL (2.2-4.2); Glucose 117 mg/dL (74-106); Magnesium 1.7 mg/dL (1.6-2.6); Phosphorus 2.8 mg/dL (2.5-4.9); Potassium 3.3 mmol/L (3.5-5.1); Protein, Total 5.2 g/dL (6.4-8.2); Sodium Level 142 mmol/L (136-145)
[2023-03-14 04:21] LABS: Partial Thromboplast Time 24.5 Seconds (24.1-36.2)
[2023-03-14] MEDS: Furosemide 40 MG/4 ML Vial IV (04:39)
[2023-03-14] MEDS: Magnesium Sulfate 2 GM in Dextrose 5%-Water (100mL Bag) 100 ML IV (04:40)
[2023-03-14] MEDS: 0.9% Saline Lock 10 ML Syringe IV ×2 (04:40→18:11)
[2023-03-14] MEDS: Potassium Phosphate 30 MMOL in 0.9% Normal Saline (250mL Bag) 250 ML 42 MMOL IV (05:03)
--- NOTE | 2023-03-14 07:02 | PCM.PN.HOSP ---
Reason for Visit Reason for Visit: Melena Subjective Subjective Mr. Teixeira is a 67-year-old male who was recently admitted from 02/26-03/03 at which time he was diagnosed with an upper GI bleed due to gastric ulcer. He was transfused 3 units of packed red blood cells and started on p.o. Protonix twice daily 40 mg and p.o. Carafate. His hemoglobin had stabilized and was 9.1 at the time of discharge. Unfortunately, he is emergency department at [facility] on 03/13/2023 with melanotic stools that started the day prior. He reported that he had abrupt onset of severe dark tarry stools and some mild left lower quadrant abdominal pain that was cramping. He denied associated fever or chills and had no vomiting but did have some mild nausea. He was maintained on aspirin and Plavix at the time of discharge as he had a recent cardiac stent placed in October 2022 and requires dual antiplatelet therapy for 12 months following. His hemoglobin was found to be 5.8 at the time of admission. His BUN was up from that at the time of discharge to 70 and his serum creatinine was actually improved from where he was at discharge during his last hospitalization. We do suspect this is upper GI bleed and he was started on Protonix and octreotide drip admitted to the ICU. He has been transfused thus far 3 units packed red blood cells. No current issues. Plan is for EGD later today. I did discuss with the patient the need for him to maintain being on aspirin and Plavix due to his recent stent placement in October and he did voiced understanding however he had discontinued his aspirin independently at home. I asked him to discontinue this and he was unsure. He had been taking his Plavix. Objective Data Objective Data Vital Signs: Vital Signs Temp Pulse Resp BP Pulse Ox O2 Del Method O2 Flow Rate 97.6 F L 75 29 H 144/82 H 97 Nasal Cannula 2 03/14/23 07:00 03/14/23 07:00 03/14/23 07:00 03/14/23 07:00 03/14/23 07:00 03/14/23 07:00 03/14/23 07:00 Oxygen Flow Rate (L/min) 2 Oxygen Delivery Method Nasal Cannula Weight: 114.9 kg Body Mass Index (BMI) 36.2 Intake & Output: Intake and Output for Last 24 Hours 03/12/23 03/13/23 03/14/23 23:59 23:59 23:59 Intake Total 1136.00 / 1136.00 965 / 965 Output Total 1950 / 1950 Balance 1136.00 / 636.00 -985 / -985 Lab / Micro Data 03/14/23 09:55 03/14/23 03:29 Labs: Laboratory Results - last 24 hr 03/13/23 17:08: WBC 8.0, RBC 1.99 L, Hgb 5.8 L*, Hct 19.0 L, MCV 95.5 H, MCH 29.1, MCHC 30.5 L, RDW Std Deviation 60.0 H, RDW Coeff of Thao 18.3 H, Plt Count TNP, MPV 9.2, Immature Gran % (Auto) 1.600 H, Neut % (Auto) 77.8 H, Lymph % (Auto) 7.5 L, Meade % (Auto) 11.3 H, Eos % (Auto) 1.3, Baso % (Auto) 0.5, Absolute Neuts (auto) 6.2, Absolute Lymphs (auto) 0.60 L, Nucleated RBC % 0.8, Differential Comment SEE COMMENT, Diff Path Review May foll, Platelet Estimate ADEQUATE, RBC Morphology N CHROM, Anisocytosis RARE, Macrocytosis RARE, Sodium 139, Potassium 3.0 L, Chloride 105, Carbon Dioxide 26.0, Anion Gap 8, BUN 70 H, Creatinine 2.34 H, Estim Creat Clear Calc 32.06, Est GFR (MDRD) Af Amer 36 L, Est GFR (MDRD) Non-Af 30 L, BUN/Creatinine Ratio 29.9 H, Glucose 183 H, Calcium 8.7, Total Bilirubin 0.60, AST 11 L, ALT 24, Alkaline Phosphatase 35 L, Total Protein 5.6 L, Albumin 2.8 L, Globulin 2.8, Albumin/Globulin Ratio 1.0, Lipase 97 H, Blood Type A POSITIVE, Antibody Screen NEGATIVE, Crossmatch See Detail 03/13/23 17:08: Crossmatch See Detail 03/13/23 23:18: POC Glucose 122 H 03/14/23 03:29: WBC 8.3, RBC 2.41 L, Hgb 6.8 L, Hct 22.7 L, MCV 94.2 H, MCH 28.2, MCHC 30.0 L, RDW Std Deviation 58.5 H, RDW Coeff of Thao 17.9 H, Plt Count 274, MPV 9.3, Immature Gran % (Auto) 1.200 H, Neut % (Auto) 75.5 H, Lymph % (Auto) 8.2 L, Meade % (Auto) 12.7 H, Eos % (Auto) 1.7, Baso % (Auto) 0.7, Absolute Neuts (auto) 6.3, Absolute Lymphs (auto) 0.68 L, Nucleated RBC % 0.8, PT 24.6 H, INR 2.2, APTT 24.5, Sodium 142, Potassium 3.3 L, Chloride 111 H, Carbon Dioxide 25.0, Anion Gap 6, BUN 63 H, Creatinine 2.10 H, Estim Creat Clear Calc 35.73, Est GFR (MDRD) Af Amer 41 L, Est GFR (MDRD) Non-Af 34 L, BUN/Creatinine Ratio 30.0 H, Glucose 117 H, Calcium 8.1 L, Phosphorus 2.8, Magnesium 1.7, Total Bilirubin 0.70, AST 17, ALT 24, Alkaline Phosphatase 29 L, Total Protein 5.2 L, Albumin 2.7 L, Globulin 2.5, Albumin/Globulin Ratio 1.1, TSH 1.00 Micro: Microbiology 03/13/23 17:08 Stool Stool Occult Blood (ROSA) - Final Occult Blood Positive Radiography Diagnostic Testing: Radiology Impression Abdomen/Pelvis CT 03/13/23 18:25 IMPRESSION: Bilateral adrenal nodules. Bilateral nonobstructing renal calculi. Right renal cysts. Small fatty umbilical hernia. Electronically Signed: El Mota DO at 19:05 EST Reading Location ID and State: [facility] / [place] Tel [phone], Service support , Physical Exam Const alert, oriented x3, no apparent distress and well nourished; Negative for average body habitus or healthy appearing Constitutional Narrative: Obese, upper middle-aged, white male who appears older than stated age, sitting up in bed, appears comfortable and nontoxic currently, watching television, nursing at bedside, Mehrdad ill-appearing General Appearance: cooperative HEENT normocephalic, head/scalp atraumatic, moist oral mucous membranes and oropharynx normal HEENT Narrative: Mallampati 3-4, no thrush Resp normal respiratory effort, no retractions, no use of accessory muscles and No clear to auscultation bilaterally Resp Narrative: Few crackles at bases bilaterally, stable on 2 L nasal cannula Auscultation: crackles; Negative for rhonchi or wheezes Cardio regular rate, regular rhythm, S1 normal heart sound, S2 normal heart sound, no murmurs, no rub, no gallops and no clicks GI normal to inspection, nondistended, normoactive bowel sounds and soft to palpation GI Narrative: Mild tenderness to palpation in left lower quadrant Extremity Extremity Narrative: Trace bilateral lower extremity edema, no cyanosis or clubbing, trace hand edema as well Neuro oriented x3, moves all extremities and no focal motor deficits Speech: speech normal Psych affect normal Psych Narrative: Very pleasant, interacts appropriately Assessment & Plan Assessment/Plan (1) Acute GI bleeding: (2) Acute on chronic anemia: (3) halfway current use of antithrombotics/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: (4) Abdominal pain: QUALIFIERS: Abdominal location: left lower quadrant Qualified Code(s): R10.32 - Left lower quadrant pain (5) Hypokalemia: PLAN: Plan Acute upper GI bleed secondary to gastric ulcers -Aspirin and Plavix were initially held however patient had recent drug-eluting stent placed in October 2022 and I discussed the case with GI. -Per Dr. Gonzales okay to restart Plavix but will hold aspirin until he can intervene with endoscopy later today and hopeful we can restart aspirin following -N.p.o. -Continue Protonix drip -Continue octreotide drip for now -Cycle hemoglobin every 6 hours -GI consultation for EGD--> Case discussed with Dr. Gonzales and plan is for EGD later today Acute on chronic anemia -Baseline hemoglobin appears to run between 12.5 and 14 prior to recent GI bleed -Hemoglobin at discharge from his last hospitalization was 9.1 -Patient received 3 units packed red blood cells at his most recent admission at the end of February -Patient is on his third unit of packed red blood cells during this hospitalization -We will trend with every 6 hour hemoglobin Coagulopathy -INR is 2.2 and patient is not on any medication that should increase his INR -I will give vitamin K 10 IV x 1 dose as this may be nutritional -Repeat INR in a.m. -If this does not correct we will need to evaluate for further etiology -Patient has normal platelet count -Of note his INR was normal at his last hospitalization at 1.2 Recent GI bleed secondary to gastric ulcer -Status post EGD on 02/28/2023 with heater probe treatment and injection -Patient was discharged on Protonix Protonix 40 mg p.o. twice daily for 8 weeks then transition to 1 time daily and Carafate as ordered for 6 weeks -On hold for now but anticipate restarting after GI intervention CKD--> baseline unclear -Serum creatinine in October of this year was between 1.4 and 1.7 -Serum creatinine has continued to improve since discharge on 03 March with current serum creatinine at 2.10 -I did refer him to nephrology after his last discharge he will need repeat referral at this discharge for chronic outpatient follow-up FAVIAN -Encourage CPAP use CAD/HTN/HPL -Restart Plavix per discussion with Dr. Gonzales -Blood pressure is soft on admission so we will hold amlodipine, Lasix, metoprolol -Restart Ranexa -Continue aspirin and Plavix as patient had his most recent cardiac stent in 10/2022--> this was a drug-eluting stent and require 1 year of dual antiplatelet therapy at which time he should be reevaluated for discontinuation of either his aspirin and Plavix DM-2 -Home agents are on hold both oral and Ozempic -Add subcu SSI every 6 hours -Accu-Cheks as ordered History of hyperglycemia secondary to hyperparathyroidism -Continue home medication -Current calcium is within normal limits Chronic pain -Avoid NSAIDs -As needed Tylenol available Depression/anxiety -Continue home paroxetine Obesity -Weight is 36.3 -Recommend weight loss -Complicates treatment, prognosis, outcomes DVT prophylaxis -SCDs -hold chemoprophylaxis due to GI bleeding CODE STATUS Full Code Charges/Coding Visit Charges Inpatient E&M: 13529 [facility] Hosp L3
[2023-03-14] MEDS: Ondansetron 4 MG/2 ML Vial IV (07:37)
[2023-03-14] MEDS: Pantoprazole Sodium 80 MG in 0.9% Normal Saline (100mL Bag) 80 ML 10 MG CONT INF (07:52)
[2023-03-14] MEDS: Phytonadione (Vit K) 10 MG in 0.9% Normal Saline (50mL Bag) 50 ML 150 MG IV (07:53)
[2023-03-14 08:45] LABS: Hemoglobin A1c < 3.8 % (3.8-5.6)
[2023-03-14 10:04] LABS: Hemoglobin 7.5 g/dL (13.0-16.5)
[2023-03-14] MEDS: Cinacalcet HCl 30 MG Tablet PO ×2 (10:18→21:33)
[2023-03-14] MEDS: Fenofibrate 145 MG Tablet PO (10:18)
[2023-03-14] MEDS: Ranolazine 500 MG Tablet PO ×2 (10:18→21:33)
[2023-03-14] MEDS: Clopidogrel Bisulfate 75 MG Tablet PO (10:18)
--- NOTE | 2023-03-14 11:32 | CASEMGMT ---
Addendum entered by Alvaro Lopez 03/14/23 16:58: Call received from Susy, a progressive care unit registered nurse from [facility] w/pt's insurance, [employer]. She states pt access to a nurse, pt advocate, SW, and sampler ovens and they can assist pt with needs in the home. She states she will call back tomorrow to inquire about anticipated discharge date. Addendum entered by Alvaro Lopez 03/14/23 12:46: Call to nephewSloan, who states he can go to pt's apt to see if they have been delivered. He was provided w/this RN CM's # and states will call back once he checks on this. Sloan voices concerns re: pt often cancelling appt's, not following through with therapy in the past, and states he also waits until last minute to get refills on things he needs and then expects family to help him. He states pt is doing less for himself @ home and has been asking for more and more help from family. He states they don't mind helping him, but they also don't want to enable him either. Sloan was made aware of CCN referral and made aware, if pt agreeable to CCN, that they may be able to help with some of the above concerns. Sloan asks for RN CM to e-mail him CCN's contact info in case he needs to contact them and this was done at this time. Original Note: RN CM readmission note: Index admission: Admitted 02/26/23 with A on C HF w/preserved EF initially. Pt was found to be noncompliant on presentation and had been out of Lasix for several days. Pt has chronic anemia and developed GIB 2/2 gastric ulcer. He had EGD 02/28 w/heater probe tx and injection. Pt was discharged home on several new Rx's from [facility], including Lasix, protonix, and carafate and instructed to resume plavix, as pt had recent cardiac stent 10/2022, but was to stop the Eliquis. Pt to scheduled f/u appt with Dr Raymond w/in 2 weeks. Pt lives alone. LNOK is his brother, Miquel, and he has a nephew, Sloan. Pt discharged home 03/03/23. He had declined wanting HHC or OP therapy, but did request a Palliative referral, which was made on day of discharge. Pt was also provided w/list of home health aide caregiver agencies and medical alert info. Current admission: Admitted 03/13/23 w/upper GIB w/acute blood loss anemia. Hgb on admission was 5.8. CLARITA IBARRA to room. Pt resting in bed. Pt states he had an appt with Dr Urias on 03/07 and has an upcoming appt with Dr Raymond this Monday, 03/[address] [facility] van transport set up for that appt. This appt and [facility] van transport will both need cx'd if pt is still @ [facility] on Mon. Pt states he is out of test strips for his One-Touch Verio glucometer and he does not know if there are any refills remaining @ [facility]. Call to [facility]. Per tech, there are several refills for test strips remaining, but she states 100 test strips were just filled 03/08 and is not due for refills again until 03/31. Pt made aware of this. He states that they were supposed to deliver them to his home, but he has not received them. He then states, Unless they've been delivered and I'm not aware of it. He states his nephew can probably check to see if they're there and states is okay for this CLARITA IBARRA to call his nephew to inquire if he could check on this. Pt states he has all needed medications @ home. He states he has been taking his medications almost all the time like they are ordered, but states sometimes he falls asleep and forgets to take them or he takes them late. Discussed the Eliquis, as per H/P, pt was not sure if he was taking this @ home. Pt states he has thought about this more and he remembers now that he was just taking the ASA and plavix, that he was not taking the Eliquis @ home. Discussed CCN and questions answered. Pt is agreeable to referral. Order placed. Call to Nikolas @ [facility] and JEANETTE left re: referral. Home O2: Per Adele @ [facility], current O2 orders are 2 l/m @ [facility] and she states pt also has a BIPAP. Pt states he does have a concentrator @ home and he also has portable O2 tanks. He states he does not bleed the HS O2 in via the BIPAP, stating he did not know he was supposed to. Pt states his nephew will the one taking him home @ discharge and states he would like to get any new medications from [facility] pharmacy again @ d/c. Pt was provided w/list of Private Duty aides during last admission. Pt states he still has that list and was making some calls to try and find some help. He plans to f/u with this again once he returns home. Palliative referral was made during last admission. CLARITA IBARRA spoke w/Ana Paula @ [facility]. She states they had left a couple VM's with pt but had not heard back from him. She states they had just finally reached him yesterday, but he informed them he was getting ready to call . She was made aware pt has been admitted and she plans to f/u with pt once he discharges back home. She asks for them to be notified once pt is discharged. Plan: Home w/CCN referral and palliative to f/u with pt once he returns home. Kris SEVERINO RN, CM
[2023-03-14 13:54] LABS: Hemoglobin 7.8 g/dL (13.0-16.5)
[2023-03-14 14:38] LABS: Pathologist Review Reviewed
--- NOTE | 2023-03-14 17:04 | NURSING ---
Pt to endo via RN and library technician
[2023-03-14] MEDS: Epinephrine (1 mg/ml) 1 MG/ML VIAL (18:09)
[2023-03-14] MEDS: 0.9% Normal Saline (Pres. free 10 ML Vial (18:09)
--- NOTE | 2023-03-14 18:34 | OP.EGD_ITS ---
Patient Name: Shade Teixeira Procedure Date: 03/14/2023 5:51 PM Date of : 1955 Age: 67 Procedure: Upper GI endoscopy Indications: Iron deficiency anemia, Melena Providers: Louie Gonzales DO Medicines: Monitored Anesthesia Care Patient Profile: This is a 67 year old male. Refer to note in patient chart for documentation of history and physical. Patient has symptoms of acute epigastric abdominal pain. His most recent EGD for treatment of bleeding was within the past month. Complications: No immediate complications. Procedure: Pre-Anesthesia Assessment: - Prior to the procedure, a History and Physical was performed, and patient medications and allergies were reviewed. The patient is competent. The risks and benefits of the procedure and the sedation options and risks were discussed with the patient. All questions were answered and informed consent was obtained. Patient identification and proposed procedure were verified by the physician in the pre-procedure area. Mental Status Examination: alert and oriented. Airway Examination: normal oropharyngeal airway and neck mobility. Respiratory Examination: clear to auscultation. CV Examination: normal. Prophylactic Antibiotics: The patient does not require prophylactic antibiotics. Prior Anticoagulants: The patient has taken no anticoagulant or antiplatelet agents. ASA Grade Assessment: III - A patient with severe systemic disease. After reviewing the risks and benefits, the patient was deemed in satisfactory condition to undergo the procedure. The anesthesia plan was to use monitored anesthesia care (MAC). Immediately prior to administration of medications, the patient was re-assessed for adequacy to receive sedatives. The heart rate, respiratory rate, oxygen saturations, blood pressure, adequacy of pulmonary ventilation, and response to care were monitored throughout the procedure. The physical status of the patient was re-assessed after the procedure. After obtaining informed consent, the endoscope was passed under direct vision. Throughout the procedure, the patient's blood pressure, pulse, and oxygen saturations were monitored continuously. The gastroscope was introduced through the mouth, and advanced to the second part of duodenum. The upper GI endoscopy was accomplished without difficulty. The patient tolerated the procedure well. 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 The maximum longitudinal extent of these mucosal changes was 5 cm in length. One oozing cratered gastric ulcer with a visible vessel was found in the stomach. The lesion was 15 mm in largest dimension. Area was successfully injected with 10 mL of a 0.1 mg/mL solution of epinephrine for drug delivery. Coagulation for hemostasis using heater probe was successful. Estimated blood loss was minimal. To prevent bleeding post-maneuver, two hemostatic clips were successfully placed. Clip mountain services manager: [employer]. There was no bleeding at the end of the procedure. One non-bleeding linear gastric ulcer with no stigmata of bleeding was found in the gastric antrum. The lesion was 6 mm in largest dimension. Coagulation for bleeding prevention using argon plasma at 0.3 liters/minute and 20 pantoja was successful. Estimated blood loss was minimal. No gross lesions were noted in the first portion of the duodenum. 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 - Oozing gastric ulcer with a visible vessel. Injected. Treated with a heater probe. - Non-bleeding gastric ulcer with no stigmata of bleeding. Treated with argon plasma coagulation (APC). - No gross lesions in the first portion of the duodenum. - No specimens collected. Recommendation: - [facility] to [facility] for [facility] care. - Full liquid diet today. - Continue present medications. Procedure Code(s): --- Professional --- 27470, Esophagogastroduodenoscopy, flexible, transoral; with control of bleeding, any method 47186, 59,51, Esophagogastroduodenoscopy, flexible, transoral; with directed submucosal injection(s), any substance CPT copyright 2021 [employer]. All rights reserved. The codes documented in this report are preliminary and upon solid waste management engineer review may be revised to meet current compliance requirements. Louie Gonzales DO 03/14/2023 6:34:04 PM This report has been signed electronically. Number of Addenda: 0 Note Initiated On: 03/14/2023 5:51 PM
--- NOTE | 2023-03-14 18:34 | OP.CCLET_ITS ---
03/14/2023 Mery Raymond MD [address] [place] [address] [place] [address] Re : Upper GI endoscopy procedure for Shade Teixeira Dear Dr. Raymond This procedure was performed on Tuesday, March 14, 2023. 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 - Oozing gastric ulcer with a visible vessel. Injected. Treated with a heater probe. - Non-bleeding gastric ulcer with no stigmata of bleeding. Treated with argon plasma coagulation (APC). - No gross lesions in the first portion of the duodenum. - No specimens collected. Recommendations : - Return patient to [facility] for [facility] care. - Full liquid diet today. - Continue present medications. My findings are described in the full procedure note, which is enclosed. If I can be of further assistance, please feel free to contact me at . Sincerely, Louie Gonzales, 03/14/2023 6:34:04 PM This report has been signed electronically.
[2023-03-14 21:43] LABS: Hemoglobin 7.6 g/dL (13.0-16.5)
[2023-03-14 22:03] LABS: Bedside Glucose 134 mg/dL (74-106)
[2023-03-15] VITALS (11 sets, daily range): BP systolic 131–169; BP diastolic 74–97; PULSE 65–87; RESP 15–26; TEMP 36.4–37.1; O2SAT 86–99
[2023-03-15 02:35] LABS: Absolute Lymphocyte Count 0.49 X10^3/uL (0.83-4.51); Absolute Neutrophil Count 6.1 X10^3/uL (2.0-7.7); Basophil# 0.04 X10^3/uL; Basophil% 0.5 % (0-1); Eosinophil# 0.08 X10^3/uL; Eosinophils% 1.1 % (0-5); Hematocrit 23.2 % (40-54); Hemoglobin 7.2 g/dL (13.0-16.5); Lymphocyte # 0.49 X10^3/ul (0.83-4.51); Lymphocyte % 6.5 % (19-41); Mean Corpuscular Hgb 28.9 pg (27.0-32.0); Mean Corpuscular Volume 93.2 fL (80-94); Mean Platelet Vol. 9.1 fl (6.2-12.0); Monocyte# 0.78 X10^3/uL; Monocyte% 10.3 % (0-10); NRBC Flagged by Analyzer 0.4 % (0-5); Neutrophil # 6.13 X10^3/uL (2.7-7.7); Neutrophil % 80.8 % (47-70); POSITIVE DIFFERENTIAL YES; Platelet Count 250 K/mm3 (150-450); RBC Distribution Width CV 18.8 % (11.6-14.6); Red Blood Count 2.49 M/mm3 (4.6-6.2); White Blood Count 7.6 K/mm3 (4.4-11.0)
[2023-03-15 02:36] LABS: Differential Indicated SCAN CRITERIA MET
[2023-03-15 02:48] LABS: International Normalized Ratio 1.2; Prothrombin Time (Protime)PT. 14.9 SECONDS (11.7-14.9)
[2023-03-15 02:56] LABS: ALB/GLOB Ratio 1.1 RATIO (0.9-2.4); AST(SGOT) 20 U/L (15-37); Alanine Aminotransfer ALT/SGPT 23 U/L (16-61); Albumin, Serum 2.8 g/dL (3.2-5.0); Alkaline Phosphatase 31 U/L (45-117); Anion Gap 7 (5-15); BUN 49 mg/dL (7-18); BUN/Creat Ratio 25.9 RATIO (10-20); Calcium,Total 8.2 mg/dL (8.5-10.1); Chloride 112 mmol/L (98-107); Creatinine, Serum 1.89 mg/dL (0.70-1.30); EST Glomerular Filtration Rate 38 mL/min (>60); Est Glom Filt Rate - Afr Amer 46 mL/min (>60); Globulin 2.6 g/dL (2.2-4.2); Glucose 122 mg/dL (74-106); Phosphorus 3.6 mg/dL (2.5-4.9); Potassium 3.2 mmol/L (3.5-5.1); Protein, Total 5.4 g/dL (6.4-8.2); Sodium Level 143 mmol/L (136-145)
[2023-03-15 03:26] LABS: Differential Comment SCANNED
[2023-03-15] MEDS: Potassium Chloride Oral Soln 20 MEQ/15 ML UDC 40 MEQ PO (05:42)
[2023-03-15 07:17] LABS: Bedside Glucose 116 mg/dL (74-106)
[2023-03-15] MEDS: Ranolazine 500 MG Tablet PO ×2 (10:11→21:02)
[2023-03-15] MEDS: Clopidogrel Bisulfate 75 MG Tablet PO (10:11)
[2023-03-15] MEDS: Fenofibrate 145 MG Tablet PO (10:11)
[2023-03-15] MEDS: Cinacalcet HCl 30 MG Tablet PO ×2 (10:11→21:02)
[2023-03-15] MEDS: Insulin Lispro 100 UNIT/ML INSULN.PEN SC ×3 (12:35→23:15)
[2023-03-15 12:43] LABS: Hematocrit 24.4 % (40-54); Hemoglobin 7.4 g/dL (13.0-16.5); Mean Corp Hgb Conc 30.3 g/dL (32-36); Mean Corpuscular Hgb 29.1 pg (27.0-32.0); Mean Corpuscular Volume 96.1 fL (80-94); Mean Platelet Vol. 9.7 fl (6.2-12.0); Platelet Count 263 K/mm3 (150-450); RBC Distribution Width CV 19.1 % (11.6-14.6); RBC Distribution Width SD 62.2 fl (35.1-43.9); Red Blood Count 2.54 M/mm3 (4.6-6.2); White Blood Count 6.7 K/mm3 (4.4-11.0)
[2023-03-15 12:45] LABS: Bedside Glucose 157 mg/dL (74-106)
[2023-03-15] MEDS: Glucerna Shake 120 ML LIQUID PO ×3 (15:02→21:01)
--- NOTE | 2023-03-15 16:51 | PN.HOSP_ITS ---
Reason for Visit Reason for Visit: Diagnoses Anemia, unspecified (03/13/23) Hypokalemia (03/13/23) Gastrointestinal hemorrhage, unspecified (03/13/23) Left lower quadrant pain (03/13/23) longterm (current) use of antithrombotics/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 (03/13/23) Subjective Subjective Patient was seen and examined today, his hemoglobin was 7.4 today. I have decided to have PT and OT see the patient-he may benefit from [facility] in a [facility] facility. Patient's potassium this morning was 3.2, creatinine has improved to 1.89. Objective Data Objective Data Vital Signs: Vital Signs Temp Pulse Resp BP Pulse Ox O2 Del Method O2 Flow Rate 97.5 F L 76 18 146/84 H 97 Room Air 2 03/15/23 16:00 03/15/23 16:00 03/15/23 16:00 03/15/23 16:00 03/15/23 16:00 03/15/23 16:00 03/15/23 08:14 Oxygen Flow Rate (L/min) 2 Oxygen Delivery Method Room Air Weight: 114.9 kg Body Mass Index (BMI) 36.2 Intake & Output: Intake and Output for Last 24 Hours 03/13/23 03/14/23 03/15/23 23:59 23:59 23:59 Intake Total 1136.00 / 1136.00 1722.5 / 2922.5 2680 / 2680 Output Total 3950 / 4650 2450 / 2450 Balance 1136.00 / 636.00 -2227.5 / -1727.5 230 / 230 Lab / Micro Data 03/15/23 12:00 03/15/23 02:25 Labs: Laboratory Results - last 24 hr 03/14/23 21:24: Hgb 7.6 L 03/14/23 21:38: POC Glucose 134 H 03/15/23 02:25: WBC 7.6, RBC 2.49 L, Hgb 7.2 L, Hct 23.2 L, MCV 93.2, MCH 28.9, MCHC 31.0 L, RDW Std Deviation 60.0 H, RDW Coeff of Thao 18.8 H, Plt Count 250, MPV 9.1, Immature Gran % (Auto) 0.800, Neut % (Auto) 80.8 H, Lymph % (Auto) 6.5 L, [place] % (Auto) 10.3 H, Eos % (Auto) 1.1, Baso % (Auto) 0.5, Absolute Neuts (auto) 6.1, Absolute Lymphs (auto) 0.49 L, Nucleated RBC % 0.4, Differential Comment SCANNED, PT 14.9, INR 1.2, Sodium 143, Potassium 3.2 L, Chloride 112 H, Carbon Dioxide 24.0, Anion Gap 7, BUN 49 H, Creatinine 1.89 H, Estim Creat Clear Calc 39.70, Est GFR (MDRD) Af Amer 46 L, Est GFR (MDRD) Non-Af 38 L, BUN/Creatinine Ratio 25.9 H, Glucose 122 H, Calcium 8.2 L, Phosphorus 3.6, Magnesium 2.0, Total Bilirubin 0.70, AST 20, ALT 23, Alkaline Phosphatase 31 L, Total Protein 5.4 L, Albumin 2.8 L, Globulin 2.6, Albumin/Globulin Ratio 1.1 03/15/23 06:59: POC Glucose 116 H 03/15/23 12:00: WBC 6.7, RBC 2.54 L, Hgb 7.4 L, Hct 24.4 L, MCV 96.1 H, MCH 29.1, MCHC 30.3 L, RDW Std Deviation 62.2 H, RDW Coeff of Thao 19.1 H, Plt Count 263, MPV 9.7 03/15/23 12:27: POC Glucose 157 H Micro: Microbiology 03/13/23 17:08 Stool Stool Occult Blood (ROSA) - Final Occult Blood Positive Physical Exam Const alert, oriented x3 and no apparent distress General Appearance: cooperative, well kempt and well developed Orientation / Consciousness: awake, oriented to person, oriented to place and oriented to time HEENT normocephalic and moist oral mucous membranes Eyes PERRL, EOMs intact bilaterally and conjunctivae normal Neck supple, no JVD, thyroid normal and no carotid bruits General: trachea midline Resp normal respiratory effort, no retractions, no use of accessory muscles and clear to auscultation bilaterally Auscultation: Negative for rales, rhonchi or wheezes Cardio regular rate, regular rhythm, S1 normal heart sound, S2 normal heart sound, no murmurs, no rub and no gallops GI normal to inspection, nondistended, normoactive bowel sounds, soft to palpation, non-tender and non-distended Extremity no clubbing, cyanosis or edema Skin no rashes or lesions noted General Skin Exam: no breakdown Neuro oriented x3, CN's II-XII intact bilaterally, moves all extremities, no focal motor deficits and no sensory deficits noted Sensorium / Orientation: awake and alert Speech: speech normal Psych affect normal Assessment & Plan Assessment/Plan (1) Acute GI bleeding: PLAN: Plan 1. Acute upper GI bleed secondary to gastric ulcer continue PPI and Carafate #2 acute blood loss anemia secondary to acute upper GI bleed from gastric ulcer- patient's CBC will be monitored, he may need further transfusion of packed red blood cells #3 type 2 diabetes-patient's blood sugars will be monitored, sliding scale insulin will be administered as needed #4 coronary artery disease-this appears stable at this time #5 hypokalemia-potassium will be given as needed to correct hypokalemia #6 chronic kidney disease stage IIIb-complicates care, medical course, recovery, and prognosis Total clinical time spent by myself addressing the patient's medical issues, reviewing all of his data, and collaborating with patient's care team: 35 minutes Charges/Coding Visit Charges Inpatient E&M: 93848 Subs Hosp L2
[2023-03-15 17:06] LABS: Bedside Glucose 180 mg/dL (74-106)
--- NOTE | 2023-03-15 17:21 | EX.PCM.PN.GI ---
Subjective Subjective Patient has not had any bleeding. He continues on octreotide drip. He is status post EGD with treatment of persistent gastric ulcer endoscopically. Objective Data Objective Data Vital Signs: Vital Signs Temp Pulse Resp BP Pulse Ox O2 Del Method O2 Flow Rate 97.5 F L 76 18 146/84 H 97 Room Air 2 03/15/23 16:00 03/15/23 16:00 03/15/23 16:00 03/15/23 16:00 03/15/23 16:00 03/15/23 16:00 03/15/23 08:14 Oxygen Flow Rate (L/min) 2 Oxygen Delivery Method Room Air Weight: 253 lb 4.978 oz Body Mass Index (BMI) 36.2 Intake & Output: Intake and Output for Last 24 Hours 03/13/23 03/14/23 03/15/23 23:59 23:59 23:59 Intake Total 1136.00 / 1136.00 1722.5 / 2922.5 2680 / 2680 Output Total 3950 / 4650 2450 / 2450 Balance 1136.00 / 636.00 -2227.5 / -1727.5 230 / 230 Lab / Micro Data 03/15/23 12:00 03/15/23 02:25 Labs: Laboratory Results - last 24 hr 03/14/23 21:24: Hgb 7.6 L 03/14/23 21:38: POC Glucose 134 H 03/15/23 02:25: WBC 7.6, RBC 2.49 L, Hgb 7.2 L, Hct 23.2 L, MCV 93.2, MCH 28.9, MCHC 31.0 L, RDW Std Deviation 60.0 H, RDW Coeff of Thao 18.8 H, Plt Count 250, MPV 9.1, Immature Gran % (Auto) 0.800, Neut % (Auto) 80.8 H, Lymph % (Auto) 6.5 L, [place] % (Auto) 10.3 H, Eos % (Auto) 1.1, Baso % (Auto) 0.5, Absolute Neuts (auto) 6.1, Absolute Lymphs (auto) 0.49 L, Nucleated RBC % 0.4, Differential Comment SCANNED, PT 14.9, INR 1.2, Sodium 143, Potassium 3.2 L, Chloride 112 H, Carbon Dioxide 24.0, Anion Gap 7, BUN 49 H, Creatinine 1.89 H, Estim Creat Clear Calc 39.70, Est GFR (MDRD) Af Amer 46 L, Est GFR (MDRD) Non-Af 38 L, BUN/Creatinine Ratio 25.9 H, Glucose 122 H, Calcium 8.2 L, Phosphorus 3.6, Magnesium 2.0, Total Bilirubin 0.70, AST 20, ALT 23, Alkaline Phosphatase 31 L, Total Protein 5.4 L, Albumin 2.8 L, Globulin 2.6, Albumin/Globulin Ratio 1.1 03/15/23 06:59: POC Glucose 116 H 03/15/23 12:00: WBC 6.7, RBC 2.54 L, Hgb 7.4 L, Hct 24.4 L, MCV 96.1 H, MCH 29.1, MCHC 30.3 L, RDW Std Deviation 62.2 H, RDW Coeff of Thao 19.1 H, Plt Count 263, MPV 9.7 03/15/23 12:27: POC Glucose 157 H 03/15/23 16:40: POC Glucose 180 H Micro: Microbiology 03/13/23 17:08 Stool Stool Occult Blood (ROSA) - Final Occult Blood Positive Physical Exam Const alert, oriented x3 and no apparent distress General Appearance: cooperative, well kempt and well developed Orientation / Consciousness: awake, oriented to person, oriented to place and oriented to time HEENT normocephalic and moist oral mucous membranes Eyes PERRL, EOMs intact bilaterally and conjunctivae normal Neck supple, no JVD, thyroid normal and no carotid bruits General: trachea midline Resp normal respiratory effort, no retractions, no use of accessory muscles and clear to auscultation bilaterally Auscultation: Negative for rales, rhonchi or wheezes Cardio regular rate, regular rhythm, S1 normal heart sound, S2 normal heart sound, no murmurs, no rub and no gallops GI normal to inspection, nondistended, normoactive bowel sounds, soft to palpation, non-tender and non-distended Extremity no clubbing, cyanosis or edema Skin no rashes or lesions noted General Skin Exam: no breakdown Neuro oriented x3, CN's II-XII intact bilaterally, moves all extremities, no focal motor deficits and no sensory deficits noted Sensorium / Orientation: awake and alert Speech: speech normal Psych affect normal Assessment & Plan Assessment/Plan (1) GI bleed: QUALIFIERS: GI bleed type/associated pathology: unspecified gastrointestinal hemorrhage type Qualified Code(s): K92.2 - Gastrointestinal hemorrhage, unspecified (2) Heart failure with preserved ejection fraction: QUALIFIERS: Heart failure chronicity: acute on chronic Qualified Code(s): I50.33 - Acute on chronic diastolic (congestive) heart failure PLAN: Plan 1. Acute on chronic congestive heart failure with preserved ejection fraction-due to relative hypotension today, I have decided to place patient on oral Lasix and stop his IV Lasix, the Lasix will be restarted #2 acute upper GI bleed requiring blood transfusion-from gastric ulcer-again #3 chronic atrial fibrillation-patient is currently not on any anticoagulation, due to his GI bleed, I will refrain from placing the patient on any anticoagulation at this time #4. Octreotide drip can be stopped and patient's diet can be advanced Charges/Coding Visit Charges Inpatient E&M: 56423 [facility] Hosp L3
[2023-03-15] MEDS: traMADol 50 MG Tablet 100 MG PO (21:00)
[2023-03-15] MEDS: Menthol/Lanolin/Calamine/Znox 113 GM Tube 1 APPLIC TOPICAL (21:01)
[2023-03-15] MEDS: Sucralfate 1 GM Tablet PO (21:01)
[2023-03-15] MEDS: Pantoprazole Sodium 40 MG in 0.9% Normal Saline (100mL MB+) 100 ML 330 MG IV (21:05)
--- NOTE | 2023-03-15 21:45 | CPS ---
Patient refused PAP therapy for the night at 19:40.
[2023-03-15 23:44] LABS: Bedside Glucose 164 mg/dL (74-106)
[2023-03-16] VITALS (9 sets, daily range): BP systolic 148–177; BP diastolic 79–100; PULSE 83–99; RESP 17–27; TEMP 36.4–36.8; O2SAT 93–995; BMI 36.4
[2023-03-16 04:04] LABS: Absolute Lymphocyte Count 0.39 X10^3/uL (0.83-4.51); Absolute Neutrophil Count 6.1 X10^3/uL (2.0-7.7); Basophil# 0.02 X10^3/uL; Basophil% 0.3 % (0-1); Eosinophil# 0.06 X10^3/uL; Eosinophils% 0.8 % (0-5); Hematocrit 22.5 % (40-54); Hemoglobin 6.9 g/dL (13.0-16.5); Lymphocyte # 0.39 X10^3/ul (0.83-4.51); Lymphocyte % 5.1 % (19-41); Mean Corp Hgb Conc 30.7 g/dL (32-36); Mean Corpuscular Volume 94.5 fL (80-94); Monocyte% 13.1 % (0-10); NRBC Flagged by Analyzer 0 % (0-5); Neutrophil # 6.14 X10^3/uL (2.7-7.7); POSITIVE DIFFERENTIAL YES; Platelet Count 233 K/mm3 (150-450); RBC Distribution Width CV 18.4 % (11.6-14.6); RBC Distribution Width SD 59.7 fl (35.1-43.9); Red Blood Count 2.38 M/mm3 (4.6-6.2); White Blood Count 7.7 K/mm3 (4.4-11.0)
[2023-03-16 04:09] LABS: Differential Indicated SCAN CRITERIA MET
[2023-03-16] MEDS: Sucralfate 1 GM Tablet PO ×4 (06:04→20:51)
[2023-03-16 07:02] LABS: Differential Comment SCANNED
[2023-03-16 07:14] LABS: Bedside Glucose 142 mg/dL (74-106)
[2023-03-16] MEDS: 0.9% Saline Lock 10 ML Syringe IV (09:14)
[2023-03-16] MEDS: Menthol/Lanolin/Calamine/Znox 113 GM Tube 1 APPLIC TOPICAL ×2 (09:14→20:50)
[2023-03-16] MEDS: Clopidogrel Bisulfate 75 MG Tablet PO (09:14)
[2023-03-16] MEDS: Glucerna Shake 120 ML LIQUID PO ×4 (09:14→20:51)
[2023-03-16] MEDS: Cinacalcet HCl 30 MG Tablet PO ×2 (09:14→20:52)
[2023-03-16] MEDS: Ranolazine 500 MG Tablet PO ×2 (09:14→20:51)
[2023-03-16] MEDS: Fenofibrate 145 MG Tablet PO (09:14)
[2023-03-16] MEDS: Pantoprazole Sodium 40 MG in 0.9% Normal Saline (100mL MB+) 100 ML 330 MG IV ×2 (09:15→20:52)
[2023-03-16] MEDS: traMADol 50 MG Tablet 100 MG PO ×2 (09:16→16:46)
[2023-03-16] MEDS: 0.9% Normal Saline (250mL Bag) 250 ML 15 ML IV (09:28)
--- NOTE | 2023-03-16 11:08 | CASEMGMT ---
Social Work SW met w/pt in room in regard to discharge plan. Pt had mentioned to physician that he would like to consider going somewhere for rehab. SW spoke w/pt about this, and he has decided he feels he needs to go somewhere for rehab after this hospital stay. SW provided to pt a list of skilled facilities via [employer], complete with quality and resource use data, in pt's preferred geographic area and in pt's insurance network. Pt would like to go to either 1. [facility] or 2. [facility]. Referrals will be sent later today, PT/OT still pending. Plan: SNF, pending acceptance and precert. JARRETT Dumont
[2023-03-16] MEDS: Insulin Lispro 100 UNIT/ML INSULN.PEN SC ×3 (11:12→20:51)
[2023-03-16 11:32] LABS: Bedside Glucose 228 mg/dL (74-106)
[2023-03-16 17:02] LABS: Bedside Glucose 155 mg/dL (74-106)
--- NOTE | 2023-03-16 17:15 | EX.PCM.PN.GI ---
Subjective Subjective Patient denies any symptoms of bleeding at this time. His hemoglobin has dropped back down to 6.9 from 7.4. Objective Data Objective Data Vital Signs: Vital Signs Temp Pulse Resp BP Pulse Ox O2 Del Method O2 Flow Rate 97.6 F L 90 22 H 171/100 H 95 Room Air 2 03/16/23 14:03 03/16/23 14:03 03/16/23 14:03 03/16/23 14:03 03/16/23 15:14 03/16/23 15:14 03/16/23 03:35 Oxygen Flow Rate (L/min) 2 Oxygen Delivery Method Room Air Weight: 254 lb 3.088 oz Body Mass Index (BMI) 36.4 Intake & Output: Intake and Output for Last 24 Hours 03/14/23 03/15/23 03/16/23 23:59 23:59 23:59 Intake Total 1722.5 / 2922.5 2790 / 2790 135.75 / 135.75 Output Total 3950 / 4650 2450 / 2450 1200 / 1200 Balance -2227.5 / -1727.5 340 / 340 -1064.25 / -1064.25 Lab / Micro Data 03/16/23 03:57 03/15/23 02:25 Labs: Laboratory Results - last 24 hr 03/13/23 17:08: Crossmatch See Detail 03/15/23 23:13: POC Glucose 164 H 03/16/23 03:57: WBC 7.7, RBC 2.38 L, Hgb 6.9 L, Hct 22.5 L, MCV 94.5 H, MCH 29.0, MCHC 30.7 L, RDW Std Deviation 59.7 H, RDW Coeff of Thao 18.4 H, Plt Count 233, MPV 9.0, Immature Gran % (Auto) 0.700, Neut % (Auto) 80.0 H, Lymph % (Auto) 5.1 L, [place] % (Auto) 13.1 H, Eos % (Auto) 0.8, Baso % (Auto) 0.3, Absolute Neuts (auto) 6.1, Absolute Lymphs (auto) 0.39 L, Nucleated RBC % 0, Differential Comment SCANNED 03/16/23 06:30: POC Glucose 142 H 03/16/23 11:11: POC Glucose 228 H 03/16/23 16:39: POC Glucose 155 H Micro: Microbiology 03/13/23 17:08 Stool Stool Occult Blood (ROSA) - Final Occult Blood Positive Physical Exam Const alert, oriented x3 and no apparent distress General Appearance: cooperative, well kempt and well developed Orientation / Consciousness: awake, oriented to person, oriented to place and oriented to time HEENT normocephalic and moist oral mucous membranes Eyes PERRL, EOMs intact bilaterally and conjunctivae normal Neck supple, no JVD, thyroid normal and no carotid bruits General: trachea midline Resp normal respiratory effort, no retractions, no use of accessory muscles and clear to auscultation bilaterally Auscultation: Negative for rales, rhonchi or wheezes Cardio regular rate, regular rhythm, S1 normal heart sound, S2 normal heart sound, no murmurs, no rub and no gallops GI normal to inspection, nondistended, normoactive bowel sounds, soft to palpation, non-tender and non-distended Extremity no clubbing, cyanosis or edema Skin no rashes or lesions noted General Skin Exam: no breakdown Neuro oriented x3, CN's II-XII intact bilaterally, moves all extremities, no focal motor deficits and no sensory deficits noted Sensorium / Orientation: awake and alert Speech: speech normal Psych affect normal Assessment & Plan Assessment/Plan (1) GI bleed: QUALIFIERS: GI bleed type/associated pathology: unspecified gastrointestinal hemorrhage type Qualified Code(s): K92.2 - Gastrointestinal hemorrhage, unspecified (2) Heart failure with preserved ejection fraction: QUALIFIERS: Heart failure chronicity: acute on chronic Qualified Code(s): I50.33 - Acute on chronic diastolic (congestive) heart failure PLAN: Plan 1. Acute on chronic congestive heart failure with preserved ejection fraction-due to relative hypotension today, I have decided to place patient on oral Lasix and stop his IV Lasix, the Lasix will be restarted #2 acute upper GI bleed requiring blood transfusion-from gastric ulcer-again #3 chronic atrial fibrillation-patient is currently not on any anticoagulation, due to his GI bleed, I will refrain from placing the patient on any anticoagulation at this time #4. Octreotide drip can be stopped and patient's diet can be advanced 03/16-patient's hemoglobin decreased after stopping octreotide drip and inducing more food. It is a possibility that food dislodged clot in his stomach due to the large nature of the gastric ulcer from his antiplatelet therapy. Keep patient n.p.o. we will repeat his upper endoscopy tomorrow. Charges/Coding Visit Charges Inpatient E&M: 07203 Subs Hosp L3
--- NOTE | 2023-03-16 18:04 | PCM.PN.HOSP ---
Reason for Visit Reason for Visit: Diagnoses Anemia, unspecified (03/13/23) Hypokalemia (03/13/23) Acute on chronic diastolic (congestive) heart failure (03/13/23) Gastrointestinal hemorrhage, unspecified (03/13/23) Left lower quadrant pain (03/13/23) residential (current) use of antithrombotics/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 (03/13/23) Subjective Subjective Patient was seen and examined today, his hemoglobin this morning was 6.9, I wrote for 1 unit of packed red blood cells to be transfused. Patient would like to go to an extended care facility for short-term rehab services, we will need approval for this. Objective Data Objective Data Vital Signs: Vital Signs Temp Pulse Resp BP Pulse Ox O2 Del Method O2 Flow Rate 97.6 F L 90 22 H 171/100 H 95 Room Air 2 03/16/23 14:03 03/16/23 14:03 03/16/23 14:03 03/16/23 14:03 03/16/23 15:14 03/16/23 15:14 03/16/23 03:35 Oxygen Flow Rate (L/min) 2 Oxygen Delivery Method Room Air Weight: 115.3 kg Body Mass Index (BMI) 36.4 Intake & Output: Intake and Output for Last 24 Hours 03/14/23 03/15/23 03/16/23 23:59 23:59 23:59 Intake Total 1722.5 / 2922.5 2790 / 2790 135.75 / 135.75 Output Total 3950 / 4650 2450 / 2450 1200 / 1200 Balance -2227.5 / -1727.5 340 / 340 -1064.25 / -1064.25 Lab / Micro Data 03/16/23 03:57 03/15/23 02:25 Labs: Laboratory Results - last 24 hr 03/13/23 17:08: Crossmatch See Detail 03/15/23 23:13: POC Glucose 164 H 03/16/23 03:57: WBC 7.7, RBC 2.38 L, Hgb 6.9 L, Hct 22.5 L, MCV 94.5 H, MCH 29.0, MCHC 30.7 L, RDW Std Deviation 59.7 H, RDW Coeff of Thao 18.4 H, Plt Count 233, MPV 9.0, Immature Gran % (Auto) 0.700, Neut % (Auto) 80.0 H, Lymph % (Auto) 5.1 L, [place] % (Auto) 13.1 H, Eos % (Auto) 0.8, Baso % (Auto) 0.3, Absolute Neuts (auto) 6.1, Absolute Lymphs (auto) 0.39 L, Nucleated RBC % 0, Differential Comment SCANNED 03/16/23 06:30: POC Glucose 142 H 03/16/23 11:11: POC Glucose 228 H 03/16/23 16:39: POC Glucose 155 H Micro: Microbiology 03/13/23 17:08 Stool Stool Occult Blood (ROSA) - Final Occult Blood Positive Physical Exam Narrative alert, oriented x3 and no apparent distress General Appearance: cooperative, well kempt and well developed Orientation / Consciousness: awake, oriented to person, oriented to place and oriented to time HEENT normocephalic and moist oral mucous membranes Eyes PERRL, EOMs intact bilaterally and conjunctivae normal Neck supple, no JVD, thyroid normal and no carotid bruits General: trachea midline Resp normal respiratory effort, no retractions, no use of accessory muscles and clear to auscultation bilaterally Auscultation: Negative for rales, rhonchi or wheezes Cardio regular rate, regular rhythm, S1 normal heart sound, S2 normal heart sound, no murmurs, no rub and no gallops GI normal to inspection, nondistended, normoactive bowel sounds, soft to palpation, non-tender and non-distended Extremity no clubbing, cyanosis or edema Skin no rashes or lesions noted General Skin Exam: no breakdown Neuro oriented x3, CN's II-XII intact bilaterally, moves all extremities, no focal motor deficits and no sensory deficits noted Sensorium / Orientation: awake and alert Speech: speech normal Psych affect normal Assessment & Plan Assessment/Plan (1) Acute GI bleeding: PLAN: Plan 1. Acute upper GI bleed secondary to gastric ulcer continue PPI and Carafate #2 acute blood loss anemia secondary to acute upper GI bleed from gastric ulcer-patient's CBC will be monitored, he may need further transfusion of packed red blood cells, patient received 1 unit of packed red blood cells today #3 type 2 diabetes-patient's blood sugars will be monitored, sliding scale insulin will be administered as needed #4 coronary artery disease-this appears stable at this time #5 hypokalemia-potassium will be given as needed to correct hypokalemia #6 chronic kidney disease stage IIIb-complicates care, medical course, recovery, and prognosis Total clinical time spent by myself addressing the patient's medical issues, reviewing all of his data, and collaborating with patient's care team: 35 minutes Charges/Coding Visit Charges Inpatient E&M: 74127 Subs Hosp L2
[2023-03-16 21:13] LABS: Bedside Glucose 200 mg/dL (74-106)
[2023-03-17] VITALS (16 sets, daily range): BP systolic 124–183; BP diastolic 75–94; PULSE 78–104; RESP 18–22; TEMP 36.6–37.6; O2SAT 88–99; BMI 35.9
[2023-03-17] MEDS: traMADol 50 MG Tablet 100 MG PO ×3 (03:13→22:23)
[2023-03-17 03:30] LABS: Absolute Lymphocyte Count 0.34 X10^3/uL (0.83-4.51); Basophil# 0.03 X10^3/uL; Basophil% 0.4 % (0-1); Eosinophils% 1.4 % (0-5); Hematocrit 24.4 % (40-54); Hemoglobin 7.6 g/dL (13.0-16.5); Lymphocyte # 0.34 X10^3/ul (0.83-4.51); Lymphocyte % 4.6 % (19-41); Mean Corp Hgb Conc 31.1 g/dL (32-36); Mean Corpuscular Hgb 28.7 pg (27.0-32.0); Mean Corpuscular Volume 92.1 fL (80-94); Monocyte# 0.87 X10^3/uL; Monocyte% 11.9 % (0-10); NRBC Flagged by Analyzer 0 % (0-5); Neutrophil # 5.95 X10^3/uL (2.7-7.7); Neutrophil % 81.3 % (47-70); POSITIVE DIFFERENTIAL YES; Platelet Count 224 K/mm3 (150-450); RBC Distribution Width CV 19.2 % (11.6-14.6); RBC Distribution Width SD 63.1 fl (35.1-43.9); Red Blood Count 2.65 M/mm3 (4.6-6.2); White Blood Count 7.3 K/mm3 (4.4-11.0)
[2023-03-17 03:39] LABS: Differential Indicated SCAN CRITERIA MET
[2023-03-17 06:08] LABS: Differential Comment SCANNED
[2023-03-17] MEDS: Sucralfate 1 GM Tablet PO ×3 (06:39→22:09)
[2023-03-17] MEDS: Insulin Lispro 100 UNIT/ML INSULN.PEN SC ×2 (06:39→22:15)
[2023-03-17 07:00] LABS: Bedside Glucose 163 mg/dL (74-106)
[2023-03-17] MEDS: Morphine 2 MG/ML Syringe IV (08:30)
[2023-03-17] MEDS: 0.9% Saline Lock 10 ML Syringe IV (08:31)
--- NOTE | 2023-03-17 08:50 | CASEMGMT ---
Addendum entered by Jennifer Stringer 03/17/23 11:46: Discharge Planning Both facilities accepted patient. [facility]. Asked for precert to be submitted. Jennifer Stringer, Discharge Planning Asst. Original Note: Discharge Planning Referrals sent to [facility] and [facility] via [facility]. Jennifer Stringer, Discharge Planning Asst.
[2023-03-17 08:56] LABS: Anion Gap 4 (5-15); BUN 27 mg/dL (7-18); BUN/Creat Ratio 15.3 RATIO (10-20); Calcium,Total 9.1 mg/dL (8.5-10.1); Chloride 109 mmol/L (98-107); Creatinine, Serum 1.77 mg/dL (0.70-1.30); EST Glomerular Filtration Rate 41 mL/min (>60); Est Glom Filt Rate - Afr Amer 50 mL/min (>60); Estimated Creatinine Clearance 42.39 ml/min; Glucose 166 mg/dL (74-106); Potassium 3.2 mmol/L (3.5-5.1); Sodium Level 140 mmol/L (136-145)
--- NOTE | 2023-03-17 09:15 | PCM.PN.HOSP ---
Reason for Visit Reason for Visit: Diagnoses Anemia, unspecified (03/13/23) Hypokalemia (03/13/23) Acute on chronic diastolic (congestive) heart failure (03/13/23) Gastrointestinal hemorrhage, unspecified (03/13/23) Left lower quadrant pain (03/13/23) care home (current) use of antithrombotics/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 (03/13/23) Subjective Subjective Patient was seen and examined today, he complains of generalized arthritis pain but otherwise has no complaints. Patient's hemoglobin today was 7.6 Objective Data Objective Data Vital Signs: Vital Signs Temp Pulse Resp BP Pulse Ox O2 Del Method O2 Flow Rate 99.6 F H 99 20 H 183/93 H 98 Room Air 2 03/17/23 08:29 03/17/23 08:29 03/17/23 08:29 03/17/23 08:29 03/17/23 08:31 03/17/23 08:31 03/17/23 08:29 Oxygen Flow Rate (L/min) 2 Oxygen Delivery Method Room Air Weight: 113.4 kg Body Mass Index (BMI) 35.9 Intake & Output: Intake and Output for Last 24 Hours 03/15/23 03/16/23 03/17/23 23:59 23:59 23:59 Intake Total 2790 / 2790 445.75 / 445.75 50 / 50 Output Total 2450 / 2450 1900 / 1900 300 / 300 Balance 340 / 340 -1454.25 / -1454.25 -250 / -250 Lab / Micro Data 03/17/23 03:20 03/17/23 08:20 Labs: Laboratory Results - last 24 hr 03/13/23 17:08: Crossmatch See Detail 03/16/23 11:11: POC Glucose 228 H 03/16/23 16:39: POC Glucose 155 H 03/16/23 20:43: POC Glucose 200 H 03/17/23 03:20: WBC 7.3, RBC 2.65 L, Hgb 7.6 L, Hct 24.4 L, MCV 92.1, MCH 28.7, MCHC 31.1 L, RDW Std Deviation 63.1 H, RDW Coeff of Thao 19.2 H, Plt Count 224, MPV 9.0, Immature Gran % (Auto) 0.400, Neut % (Auto) 81.3 H, Lymph % (Auto) 4.6 L, [place] % (Auto) 11.9 H, Eos % (Auto) 1.4, Baso % (Auto) 0.4, Absolute Neuts (auto) 6.0, Absolute Lymphs (auto) 0.34 L, Nucleated RBC % 0, Differential Comment SCANNED 03/17/23 06:36: POC Glucose 163 H 03/17/23 08:20: Sodium 140, Potassium 3.2 L, Chloride 109 H, Carbon Dioxide 27.0, Anion Gap 4 L, BUN 27 H, Creatinine 1.77 H, Estim Creat Clear Calc 42.39, Est GFR (MDRD) Af Amer 50 L, Est GFR (MDRD) Non-Af 41 L, BUN/Creatinine Ratio 15.3, Glucose 166 H, Calcium 9.1 Micro: Microbiology 03/13/23 17:08 Stool Stool Occult Blood (ROSA) - Final Occult Blood Positive Physical Exam Narrative alert, oriented x3 and no apparent distress General Appearance: cooperative, well kempt and well developed Orientation / Consciousness: awake, oriented to person, oriented to place and oriented to time HEENT normocephalic and moist oral mucous membranes Eyes PERRL, EOMs intact bilaterally and conjunctivae normal Neck supple, no JVD, thyroid normal and no carotid bruits General: trachea midline Resp normal respiratory effort, no retractions, no use of accessory muscles and clear to auscultation bilaterally Auscultation: Negative for rales, rhonchi or wheezes Cardio regular rate, regular rhythm, S1 normal heart sound, S2 normal heart sound, no murmurs, no rub and no gallops GI normal to inspection, nondistended, normoactive bowel sounds, soft to palpation, non-tender and non-distended Extremity no clubbing, cyanosis or edema Skin no rashes or lesions noted General Skin Exam: no breakdown Neuro oriented x3, CN's II-XII intact bilaterally, moves all extremities, no focal motor deficits and no sensory deficits noted Sensorium / Orientation: awake and alert Speech: speech normal Psych affect normal Assessment & Plan Assessment/Plan (1) Acute GI bleeding: PLAN: Plan 1. Acute upper GI bleed secondary to gastric ulcer continue PPI and Carafate #2 acute blood loss anemia secondary to acute upper GI bleed from gastric ulcer-patient's CBC will be monitored, he may need further transfusion of packed red blood cells, gastroenterology is participating in his care #3 type 2 diabetes-patient's blood sugars will be monitored, sliding scale insulin will be administered as needed #4 coronary artery disease-this appears stable at this time #5 hypokalemia-potassium will be given as needed to correct hypokalemia #6 chronic kidney disease stage IIIb-complicates care, medical course, recovery, and prognosis Total clinical time spent by myself addressing the patient's medical issues, reviewing all of his data, and collaborating with patient's care team: 25 minutes Charges/Coding Visit Charges Inpatient E&M: 25077 Subs Hosp L1
[2023-03-17] MEDS: Pantoprazole Sodium 40 MG in 0.9% Normal Saline (100mL MB+) 100 ML 330 MG IV ×2 (10:08→22:32)
[2023-03-17] MEDS: Menthol/Lanolin/Calamine/Znox 113 GM Tube 1 APPLIC TOPICAL ×2 (10:09→22:08)
[2023-03-17 10:32] LABS: Bedside Glucose 158 mg/dL (74-106)
[2023-03-17] MEDS: 0.9% Normal Saline (1000mL) 1,000 ML 15 ML IV (11:47)
--- NOTE | 2023-03-17 12:39 | OP.EGD_ITS ---
Patient Name: Shade Teixeira Procedure Date: 03/17/2023 12:10 PM Date of : 1955 Age: 67 Procedure: Upper GI endoscopy Indications: Iron deficiency anemia, Melena Providers: Louie Gonzales DO Medicines: Monitored Anesthesia Care Patient Profile: This is a 67 year old male. Refer to note in patient chart for documentation of history and physical. Patient has symptoms of acute epigastric abdominal pain. Complications: No immediate complications. Procedure: Pre-Anesthesia Assessment: - Prior to the procedure, a History and Physical was performed, and patient medications and allergies were reviewed. The patient is competent. The risks and benefits of the procedure and the sedation options and risks were discussed with the patient. All questions were answered and informed consent was obtained. Patient identification and proposed procedure were verified by the physician in the pre-procedure area. Mental Status Examination: alert and oriented. Airway Examination: normal oropharyngeal airway and neck mobility. Respiratory Examination: clear to auscultation. CV Examination: normal. Prophylactic Antibiotics: The patient does not require prophylactic antibiotics. Prior Anticoagulants: The patient has taken no previous anticoagulant or antiplatelet agents. ASA Grade Assessment: III - A patient with severe systemic disease. After reviewing the risks and benefits, the patient was deemed in satisfactory condition to undergo the procedure. The anesthesia plan was to use monitored anesthesia care (MAC). Immediately prior to administration of medications, the patient was re-assessed for adequacy to receive sedatives. The heart rate, respiratory rate, oxygen saturations, blood pressure, adequacy of pulmonary ventilation, and response to care were monitored throughout the procedure. The physical status of the patient was re-assessed after the procedure. After obtaining informed consent, the endoscope was passed under direct vision. Throughout the procedure, the patient's blood pressure, pulse, and oxygen saturations were monitored continuously. The Endoscope was introduced through the mouth, and advanced to the second part of duodenum. The upper GI endoscopy was accomplished without difficulty. The patient tolerated the procedure well. Scope In: 12:26:17 PM Scope Out: 12:30:37 PM Total Procedure Duration Time 0 hours 4 minutes 20 seconds Findings: There were esophageal mucosal changes suspicious for Tuttle's esophagus present in the lower third of the esophagus. The maximum longitudinal extent of these mucosal changes was 3 cm in length. A medium-sized hiatal hernia was present. A large amount of food (residue) was found in the gastric body. One oozing cratered gastric ulcer with pigmented material was found at the incisura. The lesion was 6 mm in largest dimension. Coagulation for hemostasis using heater probe was successful. Estimated blood loss was minimal. No gross lesions were noted in the first portion of the duodenum. 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 - Medium-sized hiatal hernia. - A large amount of food (residue) in the stomach. - Oozing gastric ulcer with pigmented material. Treated with a heater probe. - No gross lesions in the first portion of the duodenum. - No specimens collected. Recommendation: - Return patient to [facility] for [facility] care. - Full liquid diet. - Continue present medications. Procedure Code(s): --- Professional --- 74454, Esophagogastroduodenoscopy, flexible, transoral; with control of bleeding, any method CPT copyright 2021 [employer]. All rights reserved. The codes documented in this report are preliminary and upon retail and restaurant review may be revised to meet current compliance requirements. Louie Gonzales DO 03/17/2023 12:38:38 PM This report has been signed electronically. Number of Addenda: 0 Note Initiated On: 03/17/2023 12:10 PM
--- NOTE | 2023-03-17 12:39 | OP.CCLET_ITS ---
03/17/2023 Mery Raymond MD [address] [place] [address] [place] [address] Re : Upper GI endoscopy procedure for Shade Teixeira Dear Dr. Raymond This procedure was performed on Friday, March 17, 2023. 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 - Medium-sized hiatal hernia. - A large amount of food (residue) in the stomach. - Oozing gastric ulcer with pigmented material. Treated with a heater probe. - No gross lesions in the first portion of the duodenum. - No specimens collected. Recommendations : - Return patient to [facility] for ongoing care. - Full liquid diet. - Continue present medications. My findings are described in the full procedure note, which is enclosed. If I can be of further assistance, please feel free to contact me at . Sincerely, Louie Gonzales, 03/17/2023 12:38:38 PM This report has been signed electronically.
[2023-03-17] MEDS: Cinacalcet HCl 30 MG Tablet PO ×2 (13:49→22:15)
[2023-03-17] MEDS: Fenofibrate 145 MG Tablet PO (13:49)
[2023-03-17] MEDS: Clopidogrel Bisulfate 75 MG Tablet PO (13:49)
[2023-03-17] MEDS: Ranolazine 500 MG Tablet PO ×2 (13:50→22:14)
--- NOTE | 2023-03-17 15:03 | CASEMGMT ---
TC to 's office to cancel appt for today. Spoke with Ashleigh, she states there is no appt scheduled. TC to [facility] transport, spoke with Genna, she states pt transportation was cancelled by the patient on 03/15.
[2023-03-17] MEDS: amLODIPine 5 MG Tablet PO (15:58)
[2023-03-17] MEDS: Metoprolol Tartrate 50 MG Tablet PO ×2 (15:58→22:09)
[2023-03-17] MEDS: Glucerna Shake 120 ML LIQUID PO ×2 (16:07→22:15)
[2023-03-17 16:27] LABS: Bedside Glucose 148 mg/dL (74-106)
[2023-03-17 22:36] LABS: Bedside Glucose 169 mg/dL (74-106)
[2023-03-18] VITALS: BP 132/81; PULSE 78; RESP 18; TEMP 36.6; O2SAT 98
[2023-03-18 04:19] LABS: Hematocrit 24.5 % (40-54); Hemoglobin 7.5 g/dL (13.0-16.5)
[2023-03-18 05:17] VITALS: BMI 35.7
[2023-03-18 06:00] VITALS: BP 133/81; PULSE 74; RESP 18; TEMP 36.6; O2SAT 98
[2023-03-18] MEDS: Sucralfate 1 GM Tablet PO (06:35)
[2023-03-18 06:56] LABS: Bedside Glucose 151 mg/dL (74-106)
[2023-03-18 07:23] VITALS: O2SAT 97
[2023-03-18 07:57] VITALS: BP 129/73; PULSE 77; RESP 22; TEMP 36.7; O2SAT 99
[2023-03-18] MEDS: Clopidogrel Bisulfate 75 MG Tablet PO (08:01)
[2023-03-18] MEDS: Fenofibrate 145 MG Tablet PO (08:01)
[2023-03-18] MEDS: Cinacalcet HCl 30 MG Tablet PO (08:02)
[2023-03-18] MEDS: Ranolazine 500 MG Tablet PO (08:02)
[2023-03-18] MEDS: amLODIPine 5 MG Tablet PO (08:03)
[2023-03-18] MEDS: Menthol/Lanolin/Calamine/Znox 113 GM Tube 1 APPLIC TOPICAL (08:03)
[2023-03-18] MEDS: traMADol 50 MG Tablet 100 MG PO (08:05)
[2023-03-18] MEDS: 0.9% Normal Saline (250mL Bag) 250 ML 15 ML IV (08:19)
[2023-03-18] MEDS: Pantoprazole Sodium 40 MG in 0.9% Normal Saline (100mL MB+) 100 ML 330 MG IV (08:20)
--- NOTE | 2023-03-18 08:45 | TREXTCAR_ITS ---
Diet Diet Order/Speech Therapy: 03/17/23 13:43 Diet: 1800 ADA Dietary Modifications:: Sodium Restricted Is pt able to select menu?: Yes Routine Orders/Code Status O2 Liters per Minute: 2 O2 Frequency: Continuous Keep PO Greater than or Equal to (%): 90 Routine Lab Work: CBC (On 03/20/2023) and - (Fingerstick blood sugars AC nightly, Humalog subcu per sliding scale: 200-250: 5 units, 251-300: 8 units, 301-350: 12 units, 351-400: 15 units) Code Status: Full Code Therapies Weight Bearing: Full weight bearing Physical Therapy: Eval and Treat Occupational Therapy: Eval and Treat Problem/Diagnosis (1) Acute GI bleeding: Status: Acute Code(s): K92.2 - Gastrointestinal hemorrhage, unspecified Plan 1. Acute upper GI bleed secondary to gastric ulcer continue PPI and Carafate #2 acute blood loss anemia secondary to acute upper GI bleed from gastric ulcer- patient's CBC will be monitored, he may need further transfusion of packed red blood cells, gastroenterology is participating in his care #3 type 2 diabetes-patient's blood sugars will be monitored, sliding scale insulin will be administered as needed #4 coronary artery disease-this appears stable at this time #5 hypokalemia-potassium will be given as needed to correct hypokalemia #6 chronic kidney disease stage IIIb-complicates care, medical course, recovery, and prognosis Total clinical time spent by myself addressing the patient's medical issues, reviewing all of his data, and collaborating with patient's care team: 25 minutes Allergies/Procedures Done in Hospital Allergies No Known Allergies Allergy (Verified 03/07/23 10:17) Procedures: EGD Type of Care/Length of Stay Estimated LOS: Convalescent Care Less Than 30 days Type of Care Needed: Skilled Rehab Potential: Good Prognosis: Good Additional Orders/Day of Discharge H&P will serve as current which was dated: 03/13/23 Day of Discharge: 03/18/23 Dietary and Speech Recommendations Dietitian Recommendations/Changes: will adjust diet to 1800 calorie controlled, sodium restricted w/ glucerna 120mL 4x/day until adequate PO intake at meals is established. Discharge Plan Admission Admit Date/Time: 03/13/23 20:03 Primary Reason for Your Visit: Upper GI bleed Attending Provider: Tunde Miller Primary Care Provider: Mery Raymond Consulting Providers: Ryan Noel; Louie Gonzales; Cornelia Burns Instructions Additional Instructions / Restrictions: Obtain serum Iron, TIBC, and Ferritin on 03/20/23 Discharge Orders/Prescriptions Prescriptions: New sucralfate 1 gram Tablet 1 g PO 1HR_ACHS Qty: 1 0RF amlodipine 5 mg Tablet 5 mg PO DAILY Qty: 0 0RF tramadol 50 mg Tablet 100 mg PO Q6H PRN PRN (Reason: Pain Score 4-10) Qty: 1 0RF metoprolol tartrate 50 mg Tablet 50 mg PO BID Qty: 1 0RF Continued (DME) Handicap Placard See Rx Instructions .ROUTE .MEDSUPPLY Qty: 1 0RF Rx Instructions: As directed, length of time 3 years (DME) FreeStyle Tiffanie 2 [place] Misc See Rx Instructions .ROUTE .MEDSUPPLY Qty: 1 0RF Rx Instructions: As directed (DME) FreeStyle Tiffanie 2 Sensor Kit See Rx Instructions .ROUTE .MEDSUPPLY Qty: 2 6RF Rx Instructions: As directed ferrous sulfate 325 mg (65 mg iron) tablet 325 mg PO DAILY Qty: 90 1RF (DME) OneTouch Verio test strips Strip See Rx Instructions .ROUTE .MEDSUPPLY Qty: 100 12RF Rx Instructions: test 3 times daily cinacalcet 30 mg tablet 30 mg PO BID Qty: 60 8RF pantoprazole 40 mg Tablet,Delayed Release (Dr/Ec) 40 mg PO BID Qty: 60 2RF Rx Instructions: Take 40 mg twice daily for 8 weeks then decrease dose to 40 mg daily (DME) pen needle, diabetic [BD Ultra-Fine Lorie Pen Needle] 32 gauge x 5/32 needle See Rx Instructions .ROUTE .MEDSUPPLY Qty: 360 5RF Rx Instructions: 4x/day cholecalciferol (vitamin D3) 1,250 mcg (50,000 unit) capsule 1,250 mcg PO QWEEK Qty: 8 6RF Hold Instructions: Ordered clopidogrel 75 mg tablet 75 mg PO DAILY Qty: 90 3RF fenofibrate micronized 200 mg capsule 200 mg PO DAILY Qty: 30 12RF losartan 25 mg tablet 25 mg PO DAILY Qty: 90 3RF Hold Instructions: until you see nephrology ranolazine 500 mg tablet extended release 12 hr 500 mg PO BID Qty: 180 3RF Discontinued Ozempic 1 mg/dose (4 mg/3 mL) pen injector 1 mg subcut QWEEK Qty: 3 4RF Enema 19-7 gram/118 mL enema 118 ml [place] DAILY PRN (Reason: constipation) glucagon HCl [Glucagon (HCl) Emergency Kit] 1 mg recon soln 1 mg IM Q20M PRN (Reason: hypoglycemia) Rx Instructions: until target blood sugar attained dextrose [Glucose Gel] 40 % gel 15 g PO Q15M PRN (Reason: hypoglycemia) Rx Instructions: until symptoms of low blood sugar are controlled guaifenesin 200 mg/5 mL liquid 200 mg PO Q4H PRN (Reason: congestion) magnesium hydroxide [Milk of Magnesia] 400 mg/5 mL suspension 30 ml PO DAILY PRN (Reason: constipation) potassium chloride 20 mEq tablet,ER particles/crystals 20 meq PO TID Humulin R U-500 (Conc) Kwikpen 500 unit/mL (3 mL) insulin pen 30 unit SUBCUT TID sucralfate 1 gram Tablet 1 g PO 0700,1100,1600 Qty: 90 1RF furosemide 20 mg tablet 40 mg PO BID 90 Days Qty: 60 0RF metoprolol succinate 50 mg tablet extended release 24 hr 50 mg PO BID Qty: 180 3RF amlodipine 10 mg tablet 10 mg PO DAILY Qty: 90 3RF nitroglycerin 0.4 mg tablet, sublingual See Rx Instructions .ROUTE .COMPLEX Qty: 25 10RF Dose Instruction: DISSOLVE 1 TABLET UNDER THE TONGUE NEEDED FOR CHEST PAIN EVERY 5 MINUTES UP TO 3 TIMES. IF NO RELIEF CALL 911. Rx Instructions: DISSOLVE 1 TABLET UNDER THE TONGUE NEEDED FOR CHEST PAIN EVERY 5 MINUTES UP TO 3 TIMES. IF NO RELIEF CALL 911. paroxetine HCl 40 mg tablet 40 mg PO DAILY Qty: 90 3RF Rx Instructions: TAKE 1 TABLET BY MOUTH ONCE DAILY Referrals / Follow Up: Mery Raymond MD [Primary Care Provider] - FriendLouie DO [Med Staff - Active Staff] - Within 1 Month Disposition Disposition (needs filled in before D/C Order can be placed): Residential Facility
--- NOTE | 2023-03-18 09:02 | DS.PCM_ITS ---
Providers Date of Admission: 03/13/23 Date of Discharge: 03/18/23 Primary Care Physician: Dr. Mery Raymond MD Consultations 03/14/23 01:48 Consult: Gastroenterology Routine Consulting Provider: JanetLouie Reason for Consult: Recurrent upper GI bleed from gastric ulcer with tarry stools EMERGENT Consult: No MD Notified: Yes Date Notified: 03/14/23 Time Notified: 08:06 Method of Notification: Text Reason For Visit: UPPER GI BLEED WITH ACUTE BLOOD LOSS ANEMIA Diagnosis Discharge Diagnosis (1) Acute GI bleeding: Status: Acute Code(s): K92.2 - Gastrointestinal hemorrhage, unspecified Plan 1. Acute upper GI bleed secondary to gastric ulcer continue PPI and Carafate #2 acute blood loss anemia secondary to acute upper GI bleed from gastric ulcer wiring transfusion of packed red blood cells-patient's CBC will be monitored, he may need further transfusion of packed red blood cells, gastroenterology is participating in his care #3 type 2 diabetes-patient's blood sugars will be monitored, sliding scale insulin will be administered as needed #4 coronary artery disease-this appears stable at this time #5 hypokalemia-potassium will be given as needed to correct hypokalemia #6 chronic kidney disease stage IIIb-complicates care, medical course, recovery, and prognosis Total clinical time spent by myself addressing the patient's medical issues, reviewing all of his data, and collaborating with patient's care team: 25 minutes Medications at Discharge Home Medications Handicap Placard #1 ea 04/08/20 flash glucose scanning reader (FreeStyle Tiffanie 2 [place]) #1 ea 02/16/21 flash glucose sensor (FreeStyle Tiffanie 2 Sensor kit) #2 ea 02/16/21 pen needle, diabetic 32 gauge x 5/32 (BD Ultra-Fine Lorie Pen Needle) #360 ea 04/08/22 ferrous sulfate 325 mg (65 mg iron) tablet 325 mg PO DAILY #90 tabs 08/18/22 cholecalciferol (vitamin D3) 1,250 mcg (50,000 unit) capsule 1,250 mcg PO QWEEK #8 caps 09/07/22 clopidogrel 75 mg tablet 75 mg PO DAILY BLOOD THINNER #90 tabs 10/03/22 fenofibrate micronized 200 mg capsule 200 mg PO DAILY cholesterol #30 caps 10/20/22 losartan 25 mg tablet 25 mg PO DAILY blood pressure #90 tabs 12/08/22 ranolazine 500 mg tablet,extended release,12 hr 500 mg PO BID chest pain #180 tabs 12/20/22 pantoprazole 40 mg tablet,delayed release 40 mg PO BID #60 tabs 03/03/23 blood sugar diagnostic (OneTouch Verio test strips) #100 ea 03/07/23 cinacalcet 30 mg tablet 30 mg PO BID hypercalcemia #60 tabs 03/07/23 amlodipine 5 mg tablet 5 mg PO DAILY #0 tabs 03/18/23 metoprolol tartrate 50 mg tablet 50 mg PO BID #1 TAB 03/18/23 sucralfate 1 gram tablet 1 g PO 1HR_ACHS #1 TAB 03/18/23 tramadol 50 mg tablet 100 mg (2 x 50 mg) PO Q6H PRN PRN Pain Score 4-10 #1 TAB 03/18/23 Hospital Course Operations None Procedures EGD Summary of Care Provided Minutes Spent on Discharge: 33 Hospital Course: This 67-year-old white male was seen in the emergency room at [facility] with complaints of black stools, patient reported a recent GI bleed and was admitted to the hospital in February 2023. Workup in the emergency room included a CBC which showed a hemoglobin of 5.8, BUN was 70 and creatinine was 2.34, potassium was 3. Patient was admitted to ICU, he was placed on IV PPI and seen in consultation by gastroenterology. Hypokalemia was corrected with potass ium supplementation. Patient was transfused several units of packed red blood cells, EGD showed the presence of gastric ulcer, patient's condition stabilized but then had to undergo another EGD secondary to repeated drop in the patient's hemoglobin. Patient was seen by PT and OT, patient was felt to be appropriate for short-term placement in a group home facility for inpatient rehab services. On 03/18/2023, patient was seen and examined: On examination he appeared in good health and spirits. Vital signs as documented. Skin warm and dry and without overt rashes. Neck without JVD, neck was supple, trachea midline, thyroid was normal. Lungs clear bilaterally, normal air movement was noted. Heart exam notable for regular rhythm, normal sounds and absence of murmurs, rubs or gallops. Abdomen unremarkable and without evidence of organomegaly, masses, or abdominal aortic enlargement. Bowel sounds are present, abdomen is not distended. Extremities nonedematous, no cyanosis was noted, no clubbing was noted. Neuro: Cranial nerves II through XII are grossly intact, no focal motor deficits were noted, sensation to light touch and pinprick intact, motor exam 5/5 throughout. Psych: Patient is alert and oriented x3, he does not appear anxious or depressed, he does not appear agitated. Patient was discharged to an extended care facility on 03/18/2023 in stable condition. Weight / BMI Weight Weight: 113.1 kg Body Mass Index (BMI) 35.7 ABG / Lab / Microbiology Data 03/18/23 04:05 03/17/23 08:20 Laboratory: Laboratory Results - last 24 hr 03/17/23 10:07: POC Glucose 158 H 03/17/23 16:05: POC Glucose 148 H 03/17/23 22:12: POC Glucose 169 H 03/18/23 04:05: Hgb 7.5 L, Hct 24.5 L 03/18/23 06:36: POC Glucose 151 H Microbiology: Microbiology 03/13/23 17:08 Stool Stool Occult Blood (ROSA) - Final Occult Blood Positive Meaningful Use Info Meaningful Use Diagnoses (Choose all that apply): None applicable Discharge Plan Admission Admit Date/Time: 03/13/23 20:03 Primary Reason for Your Visit: Upper GI bleed Attending Provider: Tunde Miller Primary Care Provider: Mery Raymond Consulting Providers: Ryan Noel; Louie Gonzales; Cornelia Burns Instructions Additional Instructions / Restrictions: Obtain serum Iron, TIBC, and Ferritin on 03/20/23 Discharge Orders/Prescriptions Prescriptions: New sucralfate 1 gram Tablet 1 g PO 1HR_ACHS Qty: 1 0RF amlodipine 5 mg Tablet 5 mg PO DAILY Qty: 0 0RF tramadol 50 mg Tablet 100 mg PO Q6H PRN PRN (Reason: Pain Score 4-10) Qty: 1 0RF metoprolol tartrate 50 mg Tablet 50 mg PO BID Qty: 1 0RF Continued (DME) Handicap Placard See Rx Instructions .ROUTE .MEDSUPPLY Qty: 1 0RF Rx Instructions: As directed, length of time 3 years (DME) FreeStyle Tiffanie 2 [place] Misc See Rx Instructions .ROUTE .MEDSUPPLY Qty: 1 0RF Rx Instructions: As directed (DME) FreeStyle Tiffanie 2 Sensor Kit See Rx Instructions .ROUTE .MEDSUPPLY Qty: 2 6RF Rx Instructions: As directed ferrous sulfate 325 mg (65 mg iron) tablet 325 mg PO DAILY Qty: 90 1RF (DME) OneTouch Verio test strips Strip See Rx Instructions .ROUTE .MEDSUPPLY Qty: 100 12RF Rx Instructions: test 3 times daily cinacalcet 30 mg tablet 30 mg PO BID Qty: 60 8RF pantoprazole 40 mg Tablet,Delayed Release (Dr/Ec) 40 mg PO BID Qty: 60 2RF Rx Instructions: Take 40 mg twice daily for 8 weeks then decrease dose to 40 mg daily (DME) pen needle, diabetic [BD Ultra-Fine Lorie Pen Needle] 32 gauge x 5/32 needle See Rx Instructions .ROUTE .MEDSUPPLY Qty: 360 5RF Rx Instructions: 4x/day cholecalciferol (vitamin D3) 1,250 mcg (50,000 unit) capsule 1,250 mcg PO QWEEK Qty: 8 6RF Hold Instructions: MD Ordered clopidogrel 75 mg tablet 75 mg PO DAILY Qty: 90 3RF fenofibrate micronized 200 mg capsule 200 mg PO DAILY Qty: 30 12RF losartan 25 mg tablet 25 mg PO DAILY Qty: 90 3RF Hold Instructions: until you see nephrology ranolazine 500 mg tablet extended release 12 hr 500 mg PO BID Qty: 180 3RF Discontinued Ozempic 1 mg/dose (4 mg/3 mL) pen injector 1 mg subcut QWEEK Qty: 3 4RF Enema 19-7 gram/118 mL enema 118 ml [place] DAILY PRN (Reason: constipation) glucagon HCl [Glucagon (HCl) Emergency Kit] 1 mg recon soln 1 mg IM Q20M PRN (Reason: hypoglycemia) Rx Instructions: until target blood sugar attained dextrose [Glucose Gel] 40 % gel 15 g PO Q15M PRN (Reason: hypoglycemia) Rx Instructions: until symptoms of low blood sugar are controlled guaifenesin 200 mg/5 mL liquid 200 mg PO Q4H PRN (Reason: congestion) magnesium hydroxide [Milk of Magnesia] 400 mg/5 mL suspension 30 ml PO DAILY PRN (Reason: constipation) potassium chloride 20 mEq tablet,ER particles/crystals 20 meq PO TID Humulin R U-500 (Conc) Kwikpen 500 unit/mL (3 mL) insulin pen 30 unit SUBCUT TID sucralfate 1 gram Tablet 1 g PO 0700,1100,1600 Qty: 90 1RF furosemide 20 mg tablet 40 mg PO BID 90 Days Qty: 60 0RF metoprolol succinate 50 mg tablet extended release 24 hr 50 mg PO BID Qty: 180 3RF amlodipine 10 mg tablet 10 mg PO DAILY Qty: 90 3RF nitroglycerin 0.4 mg tablet, sublingual See Rx Instructions .ROUTE .COMPLEX Qty: 25 10RF Dose Instruction: DISSOLVE 1 TABLET UNDER THE TONGUE NEEDED FOR CHEST PAIN EVERY 5 MINUTES UP TO 3 TIMES. IF NO RELIEF CALL 911. Rx Instructions: DISSOLVE 1 TABLET UNDER THE TONGUE NEEDED FOR CHEST PAIN EVERY 5 MINUTES UP TO 3 TIMES. IF NO RELIEF CALL 911. paroxetine HCl 40 mg tablet 40 mg PO DAILY Qty: 90 3RF Rx Instructions: TAKE 1 TABLET BY MOUTH ONCE DAILY Referrals / Follow Up: Mery Raymond MD [Primary Care Provider] - Louie Gonzales DO [Med Staff - Active Staff] - Within 1 Month Disposition Disposition (needs filled in before D/C Order can be placed): Intermediate Facility Charges/Coding Visit Charges Inpatient E&M: 58857 Disch Hosp >30min
[2023-03-18 10:15] VITALS: BP 138/79; PULSE 76
[2023-03-18] MEDS: Metoprolol Tartrate 50 MG Tablet PO (10:15)
[2023-03-18 10:16] VITALS: O2SAT 99
--- NOTE | 2023-03-18 12:12 | NURSING ---
Report given to CLARITA Watson at the [facility]. All questions and concerns answered.
--- NOTE | 2023-03-21 10:52 | CCN.REFER ---
UNABLE TO REACH PATIENT TO ARRANGE CCN SERVICES. VM LEFT. WILL CONTINUE TO ATTEMPT TO REACH PATIENT.
--- NOTE | 2023-03-27 08:41 | CCN.REFER ---
AGREES TO [facility].
== END 2023-03-18 12:30 | disposition skilled nursing facility (03) | DRG 377 ==
LOC: ED 20:24 → ICU 20:31
PROVIDERS: Anesthesiology; Internal Medicine; Internal Medicine Gastroenterology; Physician Assistant; Admitting Provider Internal Medicine; Emergency Provider Emergency Medicine; PCP Internal Medicine; Visit Provider Internal Medicine
PROC: 0DJ08ZZ Inspection of Upper Intestinal Tract, Via Natural or Artificial Opening Endoscopic (ICD-10-PCS; CPT 43235; principal; 2023-03-14 17:25)
DX: K25.4 Chronic or unspecified gastric ulcer with hemorrhage (principal); I50.33 Acute on chronic diastolic (congestive) heart failure; I13.0 Hypertensive heart and chronic kidney disease with heart failure and stage 1 through stage 4 chronic kidney disease, or unspecified chronic kidney disease; I48.20 Chronic atrial fibrillation, unspecified; D62 Acute posthemorrhagic anemia; E11.22 Type 2 diabetes mellitus with diabetic chronic kidney disease; N18.32 Chronic kidney disease, stage 3b; Z79.4 Long term (current) use of insulin; F32.A Depression, unspecified; E78.00 Pure hypercholesterolemia, unspecified; I25.10 Atherosclerotic heart disease of native coronary artery without angina pectoris; E87.6 Hypokalemia; K22.70 Barrett's esophagus without dysplasia; G47.33 Obstructive sleep apnea (adult) (pediatric); K44.9 Diaphragmatic hernia without obstruction or gangrene; K59.00 Constipation, unspecified; F41.9 Anxiety disorder, unspecified; E66.9 Obesity, unspecified; R10.32 Left lower quadrant pain; Z68.38 Body mass index [BMI] 38.0-38.9, adult; G89.29 Other chronic pain; Z79.02 Long term (current) use of antithrombotics/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; Z79.82 Long term (current) use of aspirin; Z79.899 Other long term (current) drug therapy; Z95.5 Presence of coronary angioplasty implant and graft; Z79.85 Long-term (current) use of injectable non-insulin antidiabetic drugs
CPT/HCPCS: 74176; 80048; 80053; 82274; 82962; 83036; 83690; 83735; 84100; 84443; 85014; 85018; 85025; 85027; 85610; 85730; 86850; 86900; 86901; 86920; 86922; 87426; 93005; 94762; 97110; 97162; 97166; 97530; 97535; 99285; J7030; J7040; J7050; P9016; A4216; J1940; J2405; J3490

== ENCOUNTER → 2023-04-14 | Outpatient (CLI) | payer MEDICARE, SELFPAY ==
[2023-03-13 16:01] VITALS: BMI 43.3
--- OUTSIDE RECORDS SUMMARY | 2023-04-14 15:00 | XMS RPT_ITS | CCD ---
Author Name Unknown Address [id number] [place] [address] [facility] Care Team Providers Care Lead Burner Supervisor Name Role Phone AIMEE SOOD Unavailable Unavailable Kirit, Nicho-chi Unavailable Unavailable IAMEE SOOD Unavailable Unavailable Kirit, Nicho-chi Unavailable Unavailable AIMEE SOOD Unavailable Unavailable Jimmy Breen Unavailable Unavailable Kirit, Nicho-chi Unavailable Unavailable AIMEE SOOD Unavailable Unavailable Kirit, Nicho-chi Unavailable Unavailable Jaret Mcdonough Unavailable Unavailable AIMEE SOOD Unavailable Unavailable Kirit, Nicho-chi Unavailable Unavailable AIMEE SOOD Unavailable Unavailable AIMEE SOOD Unavailable Unavailable Kirit, Nicho-chi Unavailable Unavailable AIMEE SOOD Unavailable Unavailable AubrieLiam latham Asare Unavailable Unavailable Kirit, Nicho-chi Unavailable Unavailable AIMEE SOOD Unavailable Unavailable AIMEE SOOD Unavailable Unavailable AIMEE SOOD Unavailable Unavailable Kirit, Nicho-chi Unavailable Unavailable AIMEE SOOD Unavailable Unavailable Kirit, Nicho-chi Unavailable Unavailable AIMEE SOOD Unavailable Unavailable Kirit, Nicho-chi Unavailable Unavailable Kirit, Nicho-chi Unavailable Unavailable AIMEE SOOD Unavailable Unavailable Kirit, Nicho-chi Unavailable Unavailable AIMEE SOOD Unavailable Unavailable AIMEE SOOD Unavailable Unavailable Kirit, Nicho-chi Unavailable Unavailable Kirit, Nicho-chi Unavailable Unavailable AIMEE SOOD Unavailable Unavailable Kirit, Nicho-chi Unavailable Unavailable Kirit, Nicho-chi Unavailable Unavailable AIMEE SOOD Unavailable Unavailable AIMEE SOOD Unavailable Unavailable Kirit, Nicho-chi Unavailable Unavailable AIMEE SOOD Unavailable Unavailable AIMEE SOOD Unavailable Unavailable Kirit, Nicho-chi Unavailable Unavailable Problems Active Problems Problem Classification Problem Date Documented Date Episodic/Chronic Cardiac dysrhythmias (2 sources) Cardiac dysrhythmias Onset: 06-15-2017 Chronic obstructive pulmonary disease and bronchiectasis (1 source) Chronic obstructive pulmonary disease and bronchiectasis Onset: 06-15-2017 Congestive heart failure; nonhypertensive (1 source) Congestive heart failure; nonhypertensive Onset: 06-15-2017 Coronary atherosclerosis and other heart disease (1 source) Coronary atherosclerosis and other heart disease Onset: 11-07-2017 Deficiency and other anemia (1 source) Deficiency and other anemia Onset: 06-15-2017 Diabetes mellitus with complications (1 source) Diabetes mellitus with complications Onset: 11-07-2017 Esophageal disorders (1 source) Esophageal disorders Onset: 06-15-2017 Essential hypertension (1 source) Essential hypertension Onset: 11-07-2017 Other and unspecified benign neoplasm (1 source) Benign neoplasm of middle ear, nasal cavity and accessory sinuses; Translations: [Benign neoplasm of mid ear, nasl cav and accessory sinuses] Onset: 11-06-2017 Episodic Other upper respiratory infections (1 source) Chronic ethmoidal sinusitis; Translations: [Chronic ethmoidal sinusitis] Onset: 10-25-2017 Chronic Unclassified (1 source) Anxiety disorder, unspecified / F41.9(ICD-10) Onset: 06-15-2017 Unclassified (1 source) 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 / Z79.84(ICD-10) Onset: 11-07-2017 Unclassified (1 source) Presence of coronary angioplasty implant and graft / Z95.5(ICD-10) Onset: 11-07-2017 Unclassified (1 source) Chronic ethmoidal sinusitis / J32.2(ICD-10) Onset: 10-25-2017 Unclassified (2 sources) Nasal congestion / R09.81(ICD-10) Onset: 10-10-2017 Unclassified (3 sources) Localized swelling, mass and lump, head / R22.0(ICD-10) Onset: 06-12-2017 Unclassified (2 sources) Deviated nasal septum / J34.2(ICD-10) Onset: 08-07-2017 Unclassified (1 source) 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 / Z79.82(ICD-10) Onset: 08-07-2017 Unclassified (1 source) FDC (current) use of insulin / Z79.4(ICD-10) Onset: 08-07-2017 Unclassified (1 source) Neoplasm of uncertain behavior of other respiratory organs / D38.5(ICD-10) Onset: 08-07-2017 Unclassified (1 source) Obstructive sleep apnea (adult) (pediatric) / G47.33(ICD-10) Onset: 11-07-2017 Unclassified (1 source) Anosmia / R43.0(ICD-10) Onset: 08-07-2017 Unclassified (1 source) Encounter for screening for cardiovascular disorders / Z13.6(ICD-10) Onset: 06-15-2017 Unclassified (1 source) Hypertensive heart disease with heart failure / I11.0(ICD-10) Onset: 06-15-2017 Unclassified (1 source) Athscl heart disease of [place] coronary artery w/o ang pctrs / I25.10(ICD-10) Onset: 11-07-2017 Unclassified (1 source) Emphysema, unspecified / J43.9(ICD-10) Onset: 11-07-2017 Unclassified (1 source) Dependence on supplemental oxygen / Z99.81(ICD-10) Onset: 06-15-2017 Unclassified (1 source) Presence of other cardiac implants and grafts / Z95.818(ICD-10) Onset: 06-15-2017 Unclassified (1 source) Old myocardial infarction / I25.2(ICD-10) Onset: 06-15-2017 Unclassified (1 source) Obesity, unspecified / E66.9(ICD-10) Onset: 11-07-2017 Unclassified (1 source) Hypertrophy of nasal turbinates / J34.3(ICD-10) Onset: 11-07-2017 Unclassified (1 source) Personal history of nicotine dependence / Z87.891(ICD-10) Onset: 06-15-2017 Unclassified (1 source) Chronic sinusitis, unspecified / J32.9(ICD-10) Onset: 11-07-2017 Unclassified (1 source) Body mass index (BMI) 40.0-44.9, adult / Z68.41(ICD-10) Onset: 11-07-2017 Unclassified (1 source) FDC (current) use of antithrombotics/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 / Z79.02(ICD-10) Onset: 06-15-2017 Unclassified (1 source) Other specified counseling / Z71.89(ICD-10) Onset: 06-15-2017 Unclassified (1 source) Procedure and treatment not carried out for other reasons / Z53.8(ICD-10) Onset: 06-15-2017 Unclassified (2 sources) Other specified disorders of nose and nasal sinuses / J34.89(ICD-10) Onset: 06-15-2017 Unclassified (2 sources) Benign neoplasm of mid ear, nasl cav and accessory sinuses / D14.0(ICD-10) Onset: 11-07-2017 Unclassified (1 source) Personal history of other venous thrombosis and embolism / Z86.718(ICD-10) Onset: 11-07-2017 Past or Other Problems Problem Classification Problem Date Documented Da te Episodic/Chronic Other skin disorders (1 source) Localized swelling, mass and lump, head; Translations: [Localized swelling, mass and lump, head] Onset: 08-07-2017 Episodic Other upper respiratory disease (1 source) Deviated nasal septum; Translations: [Deviated nasal septum] Onset: 08-07-2017 Episodic Other upper respiratory disease (1 source) Nasal congestion; Translations: [Nasal congestion] Onset: 10-10-2017 Episodic Results Test Name Value Interpretation Reference Range Facil ity Encounters Encounter Date Encounter Type Care Provider Facility Start: 01-02-2018 Patient encounter AIMEE Say Mcpherson Facility:[id number] Start: 11-21-2017 Patient encounter AIMEE Say Mcpherson Facility:[id number] Start: 11-14-2017 Patient encounter AIMEE Mcpherson Facility:[id number] Start: 11-06-2017 End: 11-07-2017 Evaluation and management of inpatient AIMEE SOOD Facility:[facility] Start: 10-25-2017 Patient encounter AIMEE Mcpherson Facility:[facility] Start: 10-10-2017 Patient encounter AIMEE Mcpherson Facility:[id number] Start: 08-22-2017 Patient encounter AIMEE Mcpherson Facility:[id number] Start: 08-07-2017 End: 08-07-2017 Patient encounter AIMEE SOOD Facility:[facility] Start: 08-07-2017 Patient encounter Liam Alfred Facility:[facility] Start: 07-31-2017 Patient encounter AIMEE Mcpherson Facility:[facility] Start: 06-15-2017 End: 06-15-2017 Patient encounter Jeane Beth Facility:[facility] Start: 06-15-2017 Emergency department visit limited/minor prob AIMEE SOOD [facility] Start: 06-15-2017 End: 06-15-2017 Patient encounter AIMEE SOOD Facility:[facility] Start: 06-12-2017 Patient encounter AIMEE Mcpherson Facility:[facility] Start: 06-12-2017 Patient encounter AIMEE Mcpherson Facility:[facility] Procedures Date Procedure Procedure Detail Performing Clinician Start: 11-06-2017 Computer Assisted Pr ocedure of Head and Neck Region, With Computerized Tomography AIMEE SOOD Start: 11-06-2017 Drainage of Right Fr ontal Sinus with Drainage Device, Via Natural or Artificial Opening Endoscopic AIMEE SOOD Start: 11-06-2017 Excision of Left Max illary Sinus, Via Natural or Artificial Opening Endoscopic AIMEE SOOD Start: 11-06-2017 Excision of Left Sph enoid Sinus, Via Natural or Artificial Opening Endoscopic AIMEE SOOD Start: 11-06-2017 Excision of Nasal Se ptum, Via Natural or Artificial Opening Endoscopic AIMEE SOOD Start: 11-06-2017 Excision of Nasal Tu rbinate, Via Natural or Artificial Opening Endoscopic AIMEE SOOD Start: 11-06-2017 Excision of Right Ma xillary Sinus, Via Natural or Artificial Opening Endoscopic AIMEE SOOD Start: 11-06-2017 Excision of Right Sp henoid Sinus, Via Natural or Artificial Opening Endoscopic AIMEE SOOD Start: 11-06-2017 Resection of Left Et hmoid Sinus, Via Natural or Artificial Opening Endoscopic AIMEE SOOD Start: 11-06-2017 Resection of Right E thmoid Sinus, Via Natural or Artificial Opening Endoscopic AIMEE SOOD Start: 08-07-2017 Anesthesia nose & ac cessory sinuses nos AIMEE SOOD Start: 08-07-2017 Nasal/sinus ndsc reanna g w/bx polypect/dbrdmt spx AIMEE SOOD Payers Date Payer Category Payer Medicare [id number] Unknown [id number] Summary Purpose Family History No Family History Records FoundNo Family History Records Found Advance Directives No Advanced Directives Records FoundNo Advanced Directives Records Found Additional Source Comments (unrecognized sect ion and content) No Status Records FoundNo Status Records Found INFORMATION SOURCE (unrecogn ized section and content) DATE CREATED AUTHOR [facility] [place] 01/31/2018 W4 FOR RECORDS PERTAINING TO PATIENTS WHO ARE OR HAVE BEEN ENROLLED IN A CHEMICAL DEPENDENCY/SUBSTANCEABUSE PROGRAM, SOME INFORMATION MAY BE OMITTED. This clinical summary was aggregated from multiple sources. Caution should be exercised in using it in the provision of clinical care. This summary normalizes information from multiple sources, and as a consequence, information in this document may materially change the coding, format and clinical context of patient data. In addition, data may be omitted in some cases. CLINICAL DECISIONS SHOULD BE BASED ON THE PRIMARY CLINICAL RECORDS. [facility] [employer] [facility] provides no warranty or guarantee of the accuracy or completeness of information in this document.
[2023-04-14 16:58] LABS: Absolute Lymphocyte Count 0.54 X10^3/uL (0.83-4.51); Basophil# 0.03 X10^3/uL; Basophil% 0.3 % (0-1); Eosinophil# 0.11 X10^3/uL; Eosinophils% 1.1 % (0-5); Hematocrit 35.4 % (40-54); Hemoglobin 10.9 g/dL (13.0-16.5); Lymphocyte # 0.54 X10^3/ul (0.83-4.51); Lymphocyte % 5.6 % (19-41); Mean Corp Hgb Conc 30.8 g/dL (32-36); Mean Corpuscular Hgb 27.5 pg (27.0-32.0); Mean Corpuscular Volume 89.4 fL (80-94); Mean Platelet Vol. 9.7 fl (6.2-12.0); Monocyte# 0.98 X10^3/uL; Monocyte% 10.1 % (0-10); NRBC Flagged by Analyzer 0 % (0-5); Neutrophil # 8.03 X10^3/uL (2.7-7.7); Neutrophil % 82.6 % (47-70); POSITIVE DIFFERENTIAL YES; Platelet Count 344 K/mm3 (150-450); RBC Distribution Width CV 16.1 % (11.6-14.6); RBC Distribution Width SD 52.9 fl (35.1-43.9); Red Blood Count 3.96 M/mm3 (4.6-6.2); White Blood Count 9.7 K/mm3 (4.4-11.0)
[2023-04-14 17:02] LABS: Differential Indicated SCAN CRITERIA MET
[2023-04-14 17:14] LABS: Vitamin D,25 Hydroxy 65.7 ng/mL
[2023-04-14 17:23] LABS: ALB/GLOB Ratio 0.9 RATIO (0.9-2.4); AST(SGOT) 23 U/L (15-37); Alanine Aminotransfer ALT/SGPT 32 U/L (16-61); Albumin, Serum 3.5 g/dL (3.2-5.0); Alkaline Phosphatase 61 U/L (45-117); Anion Gap 6 (5-15); BUN 35 mg/dL (7-18); BUN/Creat Ratio 16.7 RATIO (10-20); Calcium,Total 9.8 mg/dL (8.5-10.1); Chloride 106 mmol/L (98-107); Creatinine, Serum 2.09 mg/dL (0.70-1.30); EST Glomerular Filtration Rate 34 mL/min (>60); Est Glom Filt Rate - Afr Amer 41 mL/min (>60); Globulin 3.8 g/dL (2.2-4.2); Glucose 163 mg/dL (74-106); Potassium 3.1 mmol/L (3.5-5.1); Protein, Total 7.3 g/dL (6.4-8.2); Sodium Level 141 mmol/L (136-145); Thyroid Stim Hormone (TSH) 1.57 uIU/mL (0.358-3.74)
== END | disposition home or self-care (01) ==
LOC: BIMLAB 14:38
PROVIDERS: Internal Medicine Endocrinology, Diabetes & Metabolism; PCP Internal Medicine; Referring Provider Physician Assistant; Visit Provider Physician Assistant
DX: E11.9 Type 2 diabetes mellitus without complications (principal); E66.01 Morbid (severe) obesity due to excess calories; Z68.41 Body mass index [BMI] 40.0-44.9, adult; E21.0 Primary hyperparathyroidism; I10 Essential (primary) hypertension; E55.9 Vitamin D deficiency, unspecified; E78.1 Pure hyperglyceridemia; K92.2 Gastrointestinal hemorrhage, unspecified
CPT/HCPCS: 36415; 80053; 82306; 84443; 85025

== ENCOUNTER 2023-04-26 14:35 | Emergency (ER) | payer MEDICARE, SELFPAY ==
[2023-03-13 16:01] VITALS: BMI 43.3
[2023-04-26 14:36] VITALS: BP 139/77; PULSE 59; RESP 16; O2SAT 98
[2023-04-26 14:37] VITALS: BP 139/77; PULSE 55; RESP 21; TEMP 35.6; O2SAT 97; BMI 35.8
--- NOTE | 2023-04-26 14:53 | EKG12_ITS ---
Test Reason : CP Blood Pressure : / mmHG Vent. Rate : 053 BPM Atrial Rate : 000 BPM P-R Int : 000 ms QRS Dur : 104 ms QT Int : 444 ms P-R-T Axes : 000 005 085 degrees QTc Int : 416 ms Atrial fibrillation with slow ventricular response Septal infarct , age undetermined Abnormal ECG Confirmed by BAILEE PIZANO, NII ([id number]), subeditor NAZ NORIEGA ([id number]) on 04/28/2023 9:48:11 AM Referred By: Confirmed By:NII MOROCHO MD
[2023-04-26 15:17] LABS: Absolute Lymphocyte Count 0.55 X10^3/uL (0.83-4.51); Absolute Neutrophil Count 5.2 X10^3/uL (2.0-7.7); Basophil# 0.04 X10^3/uL; Basophil% 0.6 % (0-1); Eosinophil# 0.09 X10^3/uL; Eosinophils% 1.3 % (0-5); Hematocrit 33.6 % (40-54); Hemoglobin 10.3 g/dL (13.0-16.5); Lymphocyte # 0.55 X10^3/ul (0.83-4.51); Lymphocyte % 8.1 % (19-41); Mean Corp Hgb Conc 30.7 g/dL (32-36); Mean Corpuscular Hgb 26.8 pg (27.0-32.0); Mean Corpuscular Volume 87.5 fL (80-94); Mean Platelet Vol. 8.9 fl (6.2-12.0); Monocyte# 0.91 X10^3/uL; Monocyte% 13.3 % (0-10); NRBC Flagged by Analyzer 0 % (0-5); Neutrophil % 76.1 % (47-70); POSITIVE DIFFERENTIAL YES; Platelet Count 322 K/mm3 (150-450); RBC Distribution Width CV 16.4 % (11.6-14.6); RBC Distribution Width SD 51.6 fl (35.1-43.9); Red Blood Count 3.84 M/mm3 (4.6-6.2); White Blood Count 6.8 K/mm3 (4.4-11.0)
[2023-04-26 15:26] LABS: Differential Indicated SCAN CRITERIA MET
--- NOTE | 2023-04-26 15:30 | RAD_ITS ---
STUDY: X-RAY CHEST REASON FOR EXAM: Male, 67 years old. chest pain TECHNIQUE: Single AP portable view of the chest. COMPARISON: 02/26/2023. FINDINGS: The lungs are clear and expanded. Stable elevated right hemidiaphragm. There is no demonstrated pleural abnormality. Normal size heart. Normal mediastinum and sue. Normal visualized pulmonary arteries. Normal visualized aortic arch and descending thoracic aorta. There are diffuse degenerative changes of the visualized thoracic spine. There is degenerative osteoarthritis of the bilateral shoulders. There is no demonstrated abnormality of the visualized soft tissue structures of the upper abdomen. RAD/Chest 1 View (Portable) IMPRESSION: No definite acute or significant abnormality seen. Electronically Signed: Roshan Stroud MD at 15:43 EST ,
[2023-04-26 15:33] LABS: Anion Gap 9 (5-15); BUN 54 mg/dL (7-18); BUN/Creat Ratio 24.2 RATIO (10-20); Chloride 106 mmol/L (98-107); Creatinine, Serum 2.23 mg/dL (0.70-1.30); EST Glomerular Filtration Rate 31 mL/min (>60); Est Glom Filt Rate - Afr Amer 38 mL/min (>60); Estimated Creatinine Clearance 41.06 ml/min; Glucose 136 mg/dL (74-106); Potassium 3.7 mmol/L (3.5-5.1); Sodium Level 139 mmol/L (136-145); Troponin-I HS (w/2H Reflex) 28 pg/mL (3.0-78.0)
[2023-04-26 15:36] VITALS: BP 147/128; PULSE 57; RESP 16; O2SAT 97
--- NOTE | 2023-04-26 15:41 | ED.VIS.CHEST ---
HPI History of Present Illness Chief Complaint: Chest Pain Informant: patient Onset/Context/Timing Onset: Days Timing: Intermittent Narrative Narrative: Patient presents at the urging of PCP secondary to some intermittent chest pain for the past couple days. He states yesterday was the worst that really has not had many symptoms today. He told his home health nurse about it this morning who contacted his PCP and encouraged him to present to the emergency room. He describes it as a fluttering sensation in the midsternal area and episodes last around 10 minutes. He does report some shortness of breath on exertion. He also had some tremors in his hands at the time. Patient does have a history of atrial fibrillation but is no longer on warfarin or Eliquis secondary to GI bleeds. He does take Plavix but not aspirin. He has 5 cardiac stents. [facility] Medical History Abnormal chest xray Acquired left ventricular hypertrophy Acute midline thoracic back pain Adult failure to thrive Anemia Anxiety and depression Arthritis Asthma Atherosclerosis of coronary artery of [place] heart without angina pectoris Atrial fibrillation Benign essential HTN Chest pain Chronic hypoxemic respiratory failure Chronic pain of both knees Chronic wound of head Colon cancer screening Congestive heart failure Dark stools Debility Depression Diabetes Dizziness MEANS (dyspnea on exertion) Dyspnea on exertion Essential (primary) hypertension Fatigue Gastric ulcer GI bleed Health care maintenance Heart failure with preserved ejection fraction History of DVT (deep vein thrombosis) History of pulmonary embolism Hypercalcemia Hyperlipidemia Hyperparathyroidism Hypertriglyceridemia Hypoxia Insomnia Morbid obesity with BMI of 40.0-44.9, adult Near syncope Obesity Olecranon bursitis FAVIAN (obstructive sleep apnea) Osteoarthritis Osteopenia Primary hyperparathyroidism Pure hypercholesterolemia Renal insufficiency Sciatica Secondary pulmonary hypertension Seizures Shortness of breath Stage 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 disease (CKD) Type 2 diabetes mellitus Vertigo Vitamin D deficiency Home Medications Handicap Placard #1 ea 04/08/20 [Rx Last Taken Unknown] flash glucose scanning reader (Symphony Tiffanie 2 [place]) #1 ea 02/16/21 [Rx Last Taken Unknown] pen needle, diabetic 32 gauge x /32 (BD Ultra-Fine Lorie Pen Needle) #360 ea 04/08/22 [Rx Last Taken Unknown] ferrous sulfate 325 mg (65 mg iron) tablet 325 mg PO DAILY #90 tabs 08/18/22 [Rx Last Taken 10/16/22] cholecalciferol (vitamin D3) 1,250 mcg (50,000 unit) capsule 1,250 mcg PO QWEEK #8 caps 09/07/22 [Rx Last Taken 10/10/22] clopidogrel 75 mg tablet 75 mg PO DAILY BLOOD THINNER #90 tabs 10/03/22 [Rx Last Taken 02/25/23] fenofibrate micronized 200 mg capsule 200 mg PO DAILY cholesterol #30 caps 10/20/22 [Rx Last Taken Unknown] losartan 25 mg tablet 25 mg PO DAILY blood pressure #90 tabs 12/08/22 [Rx Last Taken Unknown] ranolazine 500 mg tablet,extended release,12 hr 500 mg PO BID chest pain #180 tabs 12/20/22 [Rx Last Taken Unknown] pantoprazole 40 mg tablet,delayed release 40 mg PO BID #60 tabs 03/03/23 [Rx Last Taken Unknown] blood sugar diagnostic (ZMPuch Verio test strips) #100 ea 03/07/23 [Rx Last Taken Unknown] cinacalcet 30 mg tablet 30 mg PO BID hypercalcemia #60 tabs 03/07/23 [Rx Last Taken Unknown] metoprolol tartrate 50 mg tablet 50 mg PO BID #1 TAB 03/18/23 [Rx Last Taken Unknown] sucralfate 1 gram tablet 1 g PO 1HR_ACHS #1 TAB 03/18/23 [Rx Last Taken Unknown] albuterol sulfate 90 mcg/actuation aerosol inhaler 2 puff inhalation Q6H PRN 04/14/23 [History Last Taken Unknown] amlodipine 5 mg tablet 10 mg PO DAILY 04/14/23 [History Last Taken Unknown] furosemide 40 mg tablet 40 mg PO DAILY 04/14/23 [History Last Taken Unknown] nitroglycerin 0.4 mg sublingual tablet 0.4 mg sublingual Q5M PRN 04/14/23 [History Last Taken Unknown] oxycodone 5 mg tablet 5 mg PO BID PRN 04/14/23 [History Last Taken Unknown] paroxetine HCl 40 mg tablet 40 mg PO DAILY 04/14/23 [History Last Taken Unknown] potassium chloride 20 mEq tablet,extended release 20 meq PO DAILY 04/14/23 [History Last Taken Unknown] semaglutide 2 mg/dose (8 mg/3 mL) subcutaneous pen injector (Ozempic) 2 mg subcut QWEEK 04/14/23 [History Last Taken Unknown] compress.stocking,knee,reg,lrg #2 ea 04/15/23 [Rx Last Taken Unknown] flash glucose sensor (FreeStyle Tiffanie 2 Sensor kit) #2 ea 04/15/23 [Rx Last Taken Unknown] Allergy/AdvReac Type Severity Reaction Status Date / Time No Known Allergies Allergy Verified 04/14/23 13:55 Family History Mother Colon cancer Sister CAD (coronary artery disease) CABG x 5 Diabetes Myocardial infarction, Onset Age: 67 Father Crohns disease Surgical History History of appendectomy 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 Smoking Status: Never smoker second hand exposure: Yes alcohol intake: former year quit: 2003 details: Sober since 2003. substance use type: former substance user Date of last use: 04/10/2004 and marijuana caffeine: Yes Type: carbonated beverages Number of servings: 2 and coffee Number of servings: 2 what type of physical activity do you participate in: none ROS ROS ED Constitutional Constitutional ED: Denies chills or fever(s) Eyes Eyes: Denies change in vision or discharge from eye(s) ENT ENT ED: Denies discharge from eye(s), rhinorrhea or sore throat Cardiovascular Cardiovascular: Reports chest pain and palpitations Respiratory/Chest Respiratory/Chest: Reports dyspnea; Denies cough Gastrointestinal Gastrointestinal: Denies abdominal pain, nausea or vomiting Genitourinary Genitourinary ED: Denies dysuria Musculoskeletal Musculoskeletal: Denies back pain or extremity pain Integumentary Denies Abrasions or rash Neurologic Neurologic: Denies headache(s) or weakness Psychiatric Psychiatric: Denies anxiety or depression Endocrine Endocrinology: Denies polydipsia or polyuria Allergic/Immunologic Allergic/Immunologic ED: Denies lip swelling or urticaria EXAM Physical Exam Const Vital Signs: 04/26/23 14:36 04/26/23 14:37 04/26/23 14:37 Temperature 96.1 F L Temperature Source Temporal Pulse Rate 59 L 55 L Respiratory Rate 16 21 H Respiratory Effort Short of Breath Blood Pressure 139/77 H 139/77 H Blood Pressure Mean 97 97 Pulse Ox 98 97 Oxygen Delivery Method Room Air Room Air 04/26/23 15:26 04/26/23 15:36 04/26/23 16:00 Temperature Temperature Source Pulse Rate 57 L 58 L Respiratory Rate 16 21 H Respiratory Effort Blood Pressure 147/128 H 157/89 H Blood Pressure Mean 134 111 Pulse Ox 97 96 Oxygen Delivery Method Room Air Room Air Room Air Positive obese Nutritional Appearance: obese HEENT Reports moist mucous membranes Eyes EOMs intact bilaterally Chest Wall inspection of chest normal and palpation of chest normal Resp normal respiratory effort and clear to auscultation bilaterally Cardio regular rate and regular rhythm GI soft to palpation and non-tender Extremity normal to inspection Neuro oriented x3 Motor Exam: strength 5/5 throughout Psych mental status grossly normal Skin no rashes or lesions noted Heart Score History: Slightly/Non-Suspicious ECG: Normal Age: >/= 65 years Risk Factors: >/= 3 Risk Factors or History of CAD Troponin: </= Normal Limit Score: 4 MDM MDM MDM Narrative Medical decision making narrative: Patient placed on radiation monitor. IV line initiated. Labwork obtained to evaluate for leukocytosis, anemia, and electrolyte derangement. EKG obtained to evaluate for cardiac arrhythmia/ischemia. Chest x-ray obtained to evaluate for acute lung pathology, cardiac size, or mediastinal abnormality. History & Record Review Discussion w/independent historian: Patient Additional record(s) reviewed:: Prior outpatient record, Prior ED visit and Prior labs Lab Data Attestation: I reviewed the patient's lab results. Labs: Laboratory Results - last 24 hr 04/26/23 04/26/23 04/26/23 15:05 15:25 15:55 WBC 6.8 RBC 3.84 L Hgb 10.3 L Hct 33.6 L MCV 87.5 MCH 26.8 L MCHC 30.7 L RDW Std Deviation 51.6 H RDW Coeff of Thao 16.4 H Plt Count 322 MPV 8.9 Immature Gran % (Auto) 0.600 Neut % (Auto) 76.1 H Lymph % (Auto) 8.1 L [place] % (Auto) 13.3 H Eos % (Auto) 1.3 Baso % (Auto) 0.6 Absolute Neuts (auto) 5.2 Absolute Lymphs (auto) 0.55 L Nucleated RBC % 0 Differential Comment SCANNED D-Dimer Quant (PE/DVT) Cancelled 0.41 Sodium 139 Potassium 3.7 Chloride 106 Carbon Dioxide 24.0 Anion Gap 9 BUN 54 H Creatinine 2.23 H Estim Creat Clear Calc 41.06 Est GFR (MDRD) Af Amer 38 L Est GFR (MDRD) Non-Af 31 L BUN/Creatinine Ratio 24.2 H Glucose 136 H Calcium 10.0 Troponin I High Sens 28 Radiography Chest X-Ray - ED: 1 View, Read by ED Physician, Chronic Changes and No Infiltrates Diagnostic Testing: Clinical Impression(s) from Imaging Studies Chest X-Ray 04/26/23 15:30 IMPRESSION: No definite acute or significant abnormality seen. Electronically Signed: Roshan Stroud MD at 15:43 EST , EKG Initial EKG: Attestation: I personally reviewed and interpreted this EKG as follows: Interpretation: Atrial Fibrillation (Atrial fibrillation with a ventricular rate of 53 bpm. No acute ischemia.) Treatment and Re-Evaluation :: CBC was normal white count 6.8 with a hemoglobin of 10.3. This appears consistent with his prior values. Differential does reveal 76% neutrophils. D-dimer is normal at 0.41. Troponin is normal at 28. BMP is significant for a BUN of 54 and a creatinine of 2.23. This is only slightly worsened than his baseline renal function. Portable chest x-ray per my interpretation was chronic changes with no evidence of infiltrate. EKG is atrial fibrillation with ventricular rate of 53 bpm. No ischemia. Test results are discussed with the patient. He has been comfortable while here in the emergency room. He does state that he has an appointment to see Stephanie Schultz in the cardiology office on May 30. He states that he is off of anticoagulation secondary to his GI bleeds. I did discuss calling them for close follow-up and possible Holter monitor to see what percentage of the time he is in A-fib so they can better discuss potential treatments. At this time I do feel he is safe for discharge to home from a cardiac standpoint. Discharge Plan Triage Chief Complaint: Chest Pain ED Provider: Jaja Boudreaux Dx/Rx/DC Orders Clinical Impression: Chest pain Instructions: ED Chest Pain, Uncertain Cause Prescriptions: No Action (DME) John Maddox See Rx Instructions .ROUTE .MEDSUPPLY Qty: 1 0RF Rx Instructions: As directed, length of time 3 years (DME) FreeStyle Tiffanie 2 [place] Misc See Rx Instructions .ROUTE .MEDSUPPLY Qty: 1 0RF Rx Instructions: As directed ferrous sulfate 325 mg (65 mg iron) tablet 325 mg PO DAILY Qty: 90 1RF (DME) OneTouch Verio test strips Strip See Rx Instructions .ROUTE .MEDSUPPLY Qty: 100 12RF Rx Instructions: test 3 times daily cinacalcet 30 mg tablet 30 mg PO BID Qty: 60 8RF furosemide 40 mg tablet 40 mg PO DAILY nitroglycerin 0.4 mg tablet, sublingual 0.4 mg sublingual Q5M PRN Rx Instructions: do not exceed 3 doses per episode albuterol sulfate 90 mcg/actuation HFA aerosol inhaler 2 puff inhalation Q6H PRN paroxetine HCl 40 mg tablet 40 mg PO DAILY oxycodone 5 mg tablet 5 mg PO BID PRN potassium chloride 20 mEq tablet extended release 20 meq PO DAILY Ozempic 2 mg/dose (8 mg/3 mL) pen injector 2 mg subcut QWEEK amlodipine 5 mg tablet 10 mg PO DAILY (DME) compress.stocking,knee,reg,lrg Misc See Rx Instructions .ROUTE .MEDSUPPLY Qty: 2 0RF Rx Instructions: Apply first thing in AM before ambulation (DME) FreeStyle Tiffanie 2 Sensor Kit See Rx Instructions .ROUTE .MEDSUPPLY Qty: 2 6RF Rx Instructions: As directed sucralfate 1 gram Tablet 1 g PO 1HR_ACHS Qty: 1 0RF metoprolol tartrate 50 mg Tablet 50 mg PO BID Qty: 1 0RF pantoprazole 40 mg Tablet,Delayed Release (Dr/Ec) 40 mg PO BID Qty: 60 2RF Rx Instructions: Take 40 mg twice daily for 8 weeks then decrease dose to 40 mg daily (DME) pen needle, diabetic [BD Ultra-Fine Lorie Pen Needle] 32 gauge x 5/32 needle See Rx Instructions .ROUTE .MEDSUPPLY Qty: 360 5RF Rx Instructions: 4x/day cholecalciferol (vitamin D3) 1,250 mcg (50,000 unit) capsule 1,250 mcg PO QWEEK Qty: 8 6RF Hold Instructions: MD Ordered clopidogrel 75 mg tablet 75 mg PO DAILY Qty: 90 3RF fenofibrate micronized 200 mg capsule 200 mg PO DAILY Qty: 30 12RF losartan 25 mg tablet 25 mg PO DAILY Qty: 90 3RF Hold Instructions: until you see nephrology ranolazine 500 mg tablet extended release 12 hr 500 mg PO BID Qty: 180 3RF Primary Care Provider: Mery Raymond Referrals: Mery Raymond MD [Primary Care Provider] - Stephanie Schultz PA [Med Staff - [facility]] - As soon as possible Disposition Disposition: Home, Self Care Capacity [employer] Reflex Medical hold order details:: IF a medical hold is selected below, a suggested order for a MEDICAL HOLD will reflex upon signing the document. Next of kin: [place] law dictates a PRIORITY LIST for identifying legal decision-maker/legal next of kin in the following order (LNOK): 1st: The patient?s legal guardian, if any 2nd: The patient's spouse (if status is questionable, consult Risk Management) 3rd: The patient?s adult child(more) (majority, if multiple children) 4th: The patient?s parents 5th: The patient?s adult siblings (majority, if multiple children siblings)
[2023-04-26 15:43] LABS: Differential Comment SCANNED
[2023-04-26 16:00] VITALS: BP 157/89; PULSE 58; RESP 21; O2SAT 96
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
[2023-04-26 16:39] LABS: D-Dimer Quantitative (DVT/PE) 0.41 FEU/ug/m (0.27-0.49)
[2023-04-26 17:00] VITALS: BP 152/93; PULSE 64; PULSE 94; RESP 16; O2SAT 99
[2023-04-26 17:11] LABS: Reflex Troponin-HS? (from REC) Y
== END 2023-04-26 17:33 | disposition home or self-care (01) ==
PROVIDERS: Emergency Provider Emergency Medicine; PCP Internal Medicine; Visit Provider Emergency Medicine
DX: R07.9 Chest pain, unspecified (principal); I50.9 Heart failure, unspecified; I13.0 Hypertensive heart and chronic kidney disease with heart failure and stage 1 through stage 4 chronic kidney disease, or unspecified chronic kidney disease; E11.22 Type 2 diabetes mellitus with diabetic chronic kidney disease; I48.91 Unspecified atrial fibrillation; E66.01 Morbid (severe) obesity due to excess calories; Z68.41 Body mass index [BMI] 40.0-44.9, adult; N18.32 Chronic kidney disease, stage 3b; R25.1 Tremor, unspecified; Z95.5 Presence of coronary angioplasty implant and graft; Z79.02 Long term (current) use of antithrombotics/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; J45.909 Unspecified asthma, uncomplicated; I25.10 Atherosclerotic heart disease of native coronary artery without angina pectoris; E78.00 Pure hypercholesterolemia, unspecified; R06.00 Dyspnea, unspecified
CPT/HCPCS: 71045; 80048; 84484; 85025; 85379; 93005; 99285; A4216

== ENCOUNTER 2023-04-26 19:14 | Observation (INO) | payer MEDICARE, SELFPAY ==
[2023-03-13 16:01] VITALS: BMI 43.3
[2023-04-26] VITALS (16 sets, daily range): BP systolic 124–166; BP diastolic 84–94; PULSE 64–88; RESP 15–31; TEMP 35.8–36.9; O2SAT 79–94; BMI 33.9
--- NOTE | 2023-04-26 19:27 | ED.RN ---
CALLED [facility], PT CONTACT, PER PT'S REQUEST TO INFORM HIM THAT ELIANE HAD RETURNED TO ED. NURSING TO CALL [facility] WHEN PT IS DISCHARGED.
--- NOTE | 2023-04-26 19:29 | ED.RN ---
PT REFUSING SHOULDER XRAY AT THIS TIME UNTIL SEEN BY ED DOCTOR
--- NOTE | 2023-04-26 20:23 | CT_ITS ---
STUDY: CT BRAIN WITHOUT CONTRAST REASON FOR EXAM: Male, 67 years old. fall RADIATION DOSAGE (If Supplied By Facility): CTDIvol = ( 44.99 ) mGy, DLP = ( 846.73 ) mGycm TECHNIQUE: Transaxial CT imaging of the brain was performed without administration of intravenous contrast material. Individualized dose optimization techniques were used for this CT. COMPARISON: 10/10/2021 FINDINGS: Small occipital scalp hematoma near the origin of the ligamentum nuchae.. Normal calvarium. Normal size ventricles and extra-axial spaces for the patient''s age. Normal white matter tracts of the cerebral hemispheres. Normal basal ganglia and thalami. Normal brainstem. Normal cerebellum. There is no intracranial hemorrhage. There are no findings of an acute ischemic infarction. Normal visualized paranasal sinuses. CT/Brain/Head without Contrast IMPRESSION: Small occipital scalp hematoma. No acute intracranial hemorrhage. Electronically Signed: Miquel Ramirez MD at 21:41 EST ,
--- NOTE | 2023-04-26 20:23 | EKG12_ITS ---
Test Reason : FALL Blood Pressure : / mmHG Vent. Rate : 080 BPM Atrial Rate : 000 BPM P-R Int : 000 ms QRS Dur : 108 ms QT Int : 398 ms P-R-T Axes : 000 015 114 degrees QTc Int : 459 ms Atrial fibrillation Septal infarct , age undetermined Abnormal ECG Confirmed by BAILEE PIZANO, NII ([id number]), supervising film or videotape editor NAZ NORIEGA ([id number]) on 04/28/2023 9:48:58 AM Referred By: Confirmed By:NII MOROCHO MD
--- NOTE | 2023-04-26 20:26 | ED.VIS.FALL ---
HPI HPI - Fall History of Present Illness Chief Complaint: Fall Informant: patient Occured/Mechanism Occurred: Today Narrative Narrative: Patient presents after a fall at home. Patient was in the emergency room this afternoon being evaluated for intermittent chest pain with a fluttering sensation in his chest. He has a history of paroxysmal A-fib. His cardiac workup was negative. Nursing staff did get him up and ambulate him in the emergency room to ensure he was safe on his feet and he did well with ambulation per nursing report. Patient states that he was getting out of his taxi at home, took a few steps and became dizzy and weak and fell. He struck his right shoulder, right ribs, and right knee. He states he laid in the snow for 20 or 30 minutes until his neighbor checked on him. He does not believe he hit his head and does not believe he got knocked out. [facility] Medical History Abnormal chest xray Acquired left ventricular hypertrophy Acute midline thoracic back pain Adult failure to thrive Anemia Anxiety and depression Arthritis Asthma Atherosclerosis of coronary artery of [place] heart without angina pectoris Atrial fibrillation Benign essential HTN Chest pain Chronic hypoxemic respiratory failure Chronic pain of both knees Chronic wound of head Colon cancer screening Congestive heart failure Dark stools Debility Depression Diabetes Dizziness MEANS (dyspnea on exertion) Dyspnea on exertion Essential (primary) hypertension Fatigue Gastric ulcer GI bleed Health care maintenance Heart failure with preserved ejection fraction History of DVT (deep vein thrombosis) History of pulmonary embolism Hypercalcemia Hyperlipidemia Hyperparathyroidism Hypertriglyceridemia Hypoxia Insomnia Morbid obesity with BMI of 40.0-44.9, adult Near syncope Obesity Olecranon bursitis FAVIAN (obstructive sleep apnea) Osteoarthritis Osteopenia Primary hyperparathyroidism Pure hypercholesterolemia Renal insufficiency Sciatica Secondary pulmonary hypertension Seizures Shortness of breath Stage 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 disease (CKD) Type 2 diabetes mellitus Vertigo Vitamin D deficiency Home Medications Handicap Placard #1 ea 04/08/20 [Rx Last Taken Unknown] flash glucose scanning reader (MyMoneyPlatform Tiffanie 2 Clements) #1 ea 02/16/21 [Rx Last Taken Unknown] pen needle, diabetic 32 gauge x 5/32 (BD Ultra-Fine Lorie Pen Needle) #360 ea 04/08/22 [Rx Last Taken Unknown] ferrous sulfate 325 mg (65 mg iron) tablet 325 mg PO DAILY #90 tabs 05/11/23 [Rx Last Taken 10/16/22] cholecalciferol (vitamin D3) 1,250 mcg (50,000 unit) capsule 1,250 mcg PO QWEEK #8 caps 09/07/22 [Rx Last Taken 10/10/22] clopidogrel 75 mg tablet 75 mg PO DAILY BLOOD THINNER #90 tabs 10/03/22 [Rx Last Taken 02/25/23] fenofibrate micronized 200 mg capsule 200 mg PO DAILY cholesterol #30 caps 10/20/22 [Rx Last Taken Unknown] losartan 25 mg tablet 25 mg PO DAILY blood pressure #90 tabs 12/08/22 [Rx Last Taken Unknown] ranolazine 500 mg tablet,extended release,12 hr 500 mg PO BID chest pain #180 tabs 12/20/22 [Rx Last Taken Unknown] pantoprazole 40 mg tablet,delayed release 40 mg PO BID #60 tabs 03/03/23 [Rx Last Taken Unknown] blood sugar diagnostic (KeepsafeTouch Verio test strips) #100 ea 03/07/23 [Rx Last Taken Unknown] cinacalcet 30 mg tablet 30 mg PO BID hypercalcemia #60 tabs 03/07/23 [Rx Last Taken Unknown] sucralfate 1 gram tablet 1 g PO 1HR_ACHS #1 TAB 03/18/23 [Rx Last Taken Unknown] albuterol sulfate 90 mcg/actuation aerosol inhaler 2 puff inhalation Q6H PRN shortness of breath or wheezing 04/14/23 [History Last Taken Unknown] amlodipine 5 mg tablet 10 mg PO DAILY 04/14/23 [History Last Taken Unknown] furosemide 40 mg tablet 40 mg PO DAILY 04/14/23 [History Last Taken Unknown] nitroglycerin 0.4 mg sublingual tablet 0.4 mg sublingual Q5M PRN chest pain 04/14/23 [History Last Taken Unknown] paroxetine HCl 40 mg tablet 40 mg PO DAILY 04/14/23 [History Last Taken Unknown] potassium chloride 20 mEq tablet,extended release 20 meq PO DAILY 04/14/23 [History Last Taken Unknown] compress.stocking,knee,reg,lrg #2 ea 04/15/23 [Rx Last Taken Unknown] flash glucose sensor (FreeStyle Tiffanie 2 Sensor kit) #2 ea 04/15/23 [Rx Last Taken Unknown] insulin regular hum U-500 conc 500 unit/mL(3 mL) subcut pen (Humulin R U-500 (Conc) Insulin Kwikpen) 30 unit subcut 04/26/23 [History Last Taken Unknown] metoprolol succinate 50 mg tablet,extended release 24 hr 50 mg PO Q12H 04/26/23 [History Last Taken Unknown] potassium chloride 20 mEq tablet,extended release(part/cryst) 20 meq PO BID 04/26/23 [History Last Taken Unknown] semaglutide 1 mg/dose (4 mg/3 mL) subcutaneous pen injector (Ozempic) 1 mg subcut QWEEK 04/26/23 [History Last Taken Unknown] Allergy/AdvReac Type Severity Reaction Status Date / Time No Known Allergies Allergy Verified 04/26/23 19:23 Family History Mother Colon cancer Sister CAD (coronary artery disease) CABG x 5 Diabetes Myocardial infarction, Onset Age: 67 Father Crohns disease Surgical History History of appendectomy 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) History of coronary artery stent placement (10/21/22) History of eye surgery History of hip replacement History of intestinal surgery History of knee surgery History of tonsillectomy and adenoidectomy Social History household members: none housing: apartment other: Hx working in [employer] and [employer]. Smoking Status: Never smoker second hand exposure: Yes alcohol intake: former year quit: 2003 details: Sober since 2003. substance use type: former substance user Date of last use: 04/10/2004 and marijuana caffeine: Yes Type: carbonated beverages Number of servings: 2 and coffee Number of servings: 2 what type of physical activity do you participate in: none ROS ROS ED Constitutional Constitutional ED: Denies chills or fever(s) Eyes Eyes: Denies discharge from eye(s) ENT ENT ED: Denies discharge from eye(s), rhinorrhea or sore throat Cardiovascular Cardiovascular: Reports chest pain and palpitations Respiratory/Chest Respiratory/Chest: Reports dyspnea; Denies cough Gastrointestinal Gastrointestinal: Denies abdominal pain, nausea or vomiting Genitourinary Genitourinary ED: Denies dysuria Musculoskeletal Musculoskeletal: Denies back pain or extremity pain Integumentary Denies Abrasions or rash Neurologic Neurologic: Reports weakness; Denies headache(s) Psychiatric Psychiatric: Denies anxiety or depression Allergic/Immunologic Allergic/Immunologic ED: Denies lip swelling or urticaria EXAM Physical Exam Const Vital Signs: 04/26/23 19:15 04/26/23 20:23 Temperature 96.4 F L Temperature Source Temporal Pulse Rate 88 Respiratory Rate 15 Respiratory Effort Normal Respiratory Depth Normal Respiratory Pattern Normal Blood Pressure 124/91 H Blood Pressure Mean 102 Pulse Ox 94 Oxygen Delivery Method Room Air Room Air Positive obese Nutritional Appearance: obese HEENT Reports normocephalic HEENT Narrative: Old appearing abrasion to the right lateral forehead. Eyes EOMs intact bilaterally Neck full ROM Chest Wall inspection of chest normal Chest Narrative: Mild right-sided rib tenderness. No crepitus. Resp normal respiratory effort and clear to auscultation bilaterally Cardio regular rate and regular rhythm GI non-tender Extremity Extremity Narrative: Scattered abrasions and scabs noted on the lower extremities. No focal tenderness with palpation over the knee. Good range of motion. Neuro oriented x3 and moves all extremities Neuro Narrative: No focal neurologic deficit. Psych mental status grossly normal MDM MDM MDM Narrative Medical decision making narrative: Given the patient reported that he was dizzy when he fell he was placed on boot lace cutter machine and repeat EKG will be obtained at this time. Patient be sent for CT scan of the head to evaluate for fracture, bleed, edema. X-rays of the right shoulder, right ribs, and right knee will be obtained to evaluate for fracture or injury. Radiography Diagnostic Testing: Clinical Impression(s) from Imaging Studies Brain CT 04/26/23 20:23 IMPRESSION: Small occipital scalp hematoma. No acute intracranial hemorrhage. Electronically Signed: Miquel Ramirez MD at 21:41 EST , Knee X-Ray 04/26/23 20:40 IMPRESSION: No acute fracture or dislocation. Severe arthrosis. Moderate joint effusion. Electronically Signed: Miquel Ramirez MD at 21:45 EST , Ribs w/Chest X-Ray 04/26/23 20:40 IMPRESSION: RIBS: Normal x-ray examination of the ribs. CHEST: Normal x-ray examination of the chest. Electronically Signed: Miquel Ramirez MD at 21:47 EST [facility] , Service support , Shoulder X-Ray 04/26/23 20:40 IMPRESSION: 1. No acute fracture or dislocation. 2. Severe glenohumeral joint arthrosis. 3. Moderate acromioclavicular joint arthrosis. Electronically Signed: Miquel Ramirez MD at 21:43 EST Reading Location ID and State: [place] / [employer] [employer] , Service support , Treatment and Re-Evaluation Narrative: Right shoulder x-ray per my interpretation reveals chronic arthritic changes with no evidence of fracture or dislocation. Radiology interpretation reviewed and agrees. Right rib x-rays per my interpretation reveal no obvious displaced rib fracture and no pneumothorax. Radiology interpretation reviewed and agrees. Right knee x-ray per my interpretation reveals chronic changes with arthritis. Radiology interpretation reviewed. They agree with the addition of a moderate joint effusion. Patient's EKG is A-fib at 80 with no evidence of ischemia. Given the patient has had 2 visits to the ER today and was too weak to make it into his home tonight I will speak with hospitalist regarding admission. Discharge Plan Triage Chief Complaint: Fall ED Provider: Jaja Boudreaux Dx/Rx/DC Orders Clinical Impression: Intermittent chest pain, Dizziness, Fall Prescriptions: No Action (DME) Handicap Placard See Rx Instructions .ROUTE .MEDSUPPLY Qty: 1 0RF Rx Instructions: As directed, length of time 3 years (DME) FreeStyle Tiffanie 2 Clements [facility] See Rx Instructions .ROUTE .MEDSUPPLY Qty: 1 0RF Rx Instructions: As directed ferrous sulfate 325 mg (65 mg iron) tablet 325 mg PO DAILY Qty: 90 1RF (DME) OneTouch Verio test strips Strip See Rx Instructions .ROUTE .MEDSUPPLY Qty: 100 12RF Rx Instructions: test 3 times daily cinacalcet 30 mg tablet 30 mg PO BID Qty: 60 8RF furosemide 40 mg tablet 40 mg PO DAILY nitroglycerin 0.4 mg tablet, sublingual 0.4 mg sublingual Q5M PRN (Reason: chest pain) Rx Instructions: do not exceed 3 doses per episode albuterol sulfate 90 mcg/actuation HFA aerosol inhaler 2 puff inhalation Q6H PRN (Reason: shortness of breath or wheezing) paroxetine HCl 40 mg tablet 40 mg PO DAILY potassium chloride 20 mEq tablet extended release 20 meq PO DAILY amlodipine 5 mg tablet 10 mg PO DAILY (DME) compress.stocking,knee,reg,lrg Misc See Rx Instructions .ROUTE .MEDSUPPLY Qty: 2 0RF Rx Instructions: Apply first thing in AM before ambulation (DME) MyMoneyPlatform Tiffanie 2 Sensor Kit See Rx Instructions .ROUTE .MEDSUPPLY Qty: 2 6RF Rx Instructions: As directed sucralfate 1 gram Tablet 1 g PO 1HR_ACHS Qty: 1 0RF Humulin R U-500 (Conc) Kwikpen 500 unit/mL (3 mL) insulin pen 30 unit SUBCUT Patient Comments: inject 30 units subcutaneously three times a day; has been taking 20 units d/t decreasing sugar too much potassium chloride 20 mEq tablet,ER particles/crystals 20 meq PO BID Patient Comments: TAKE ONE (1) TABLET BY MOUTH TWICE DAILY FOR POTASSIUM Ozempic 1 mg/dose (4 mg/3 mL) pen injector 1 mg SUBCUT QWEEK Patient Comments: INJECT 1MG (0.75ML) SUBCUTANEOUSLY EVERY WEEK metoprolol succinate 50 mg tablet extended release 24 hr 50 mg PO Q12H Patient Comments: TAKE 1 TABLET BY MOUTH TWICE DAILY FOR BLOOD PRESSURE pantoprazole 40 mg Tablet,Delayed Release (Dr/Ec) 40 mg PO BID Qty: 60 2RF Rx Instructions: Take 40 mg twice daily for 8 weeks then decrease dose to 40 mg daily (DME) pen needle, diabetic [BD Ultra-Fine Lorie Pen Needle] 32 gauge x 5/32 needle See Rx Instructions .ROUTE .MEDSUPPLY Qty: 360 5RF Rx Instructions: 4x/day cholecalciferol (vitamin D3) 1,250 mcg (50,000 unit) capsule 1,250 mcg PO QWEEK Qty: 8 6RF Hold Instructions: MD Ordered clopidogrel 75 mg tablet 75 mg PO DAILY Qty: 90 3RF fenofibrate micronized 200 mg capsule 200 mg PO DAILY Qty: 30 12RF losartan 25 mg tablet 25 mg PO DAILY Qty: 90 3RF Hold Instructions: until you see nephrology ranolazine 500 mg tablet extended release 12 hr 500 mg PO BID Qty: 180 3RF Primary Care Provider: Mery Raymnod Referrals: Mery Raymond MD [Primary Care Provider] - Disposition Disposition: [facility] Capacity Legal Technical Asst Reflex Medical hold order details:: IF a medical hold is selected below, a suggested order for a MEDICAL HOLD will reflex upon signing the document. Next of kin: [place] law dictates a PRIORITY LIST for identifying legal decision-maker/legal next of kin in the following order (LNOK): 1st: The patient?s legal guardian, if any 2nd: The patient's spouse (if status is questionable, consult Risk Management) 3rd: The patient?s adult child(more) (majority, if multiple children) 4th: The patient?s parents 5th: The patient?s adult siblings (majority, if multiple children siblings)
--- NOTE | 2023-04-26 20:40 | RAD_ITS ---
STUDY: X-RAY - RIGHT KNEE REASON FOR EXAM: Male, 67 years old. fall TECHNIQUE: 4 view(s) of the knee. COMPARISON: 06/23/2021 FINDINGS: Normal visualized distal femur. Normal visualized proximal tibia and fibula. Normal proximal tibiofibular articulation. There is severe degenerative arthrosis of the medial femorotibial compartment with severe joint space narrowing. There is moderate degenerative arthrosis of the lateral femorotibial compartment with moderate joint space narrowing. There is moderate degenerative arthrosis of the patellofemoral articulation. There is a moderate volume joint effusion. The soft tissue structures are unremarkable. RAD/Knee 4 or More Views IMPRESSION: No acute fracture or dislocation. Severe arthrosis. Moderate joint effusion. Electronically Signed: Miquel Ramirez MD at 21:45 EST ,
--- NOTE | 2023-04-26 20:40 | RAD_ITS ---
STUDY: X-RAY - RIGHT SHOULDER REASON FOR EXAM: Male, 67 years old. fall TECHNIQUE: 4 view(s) of the shoulder. COMPARISON: None. FINDINGS: There is severe degenerative arthrosis of the glenohumeral articulation. There is degenerative arthrosis of the acromioclavicular joint without inferior osseous spur formation. Normal acromion. Normal humeral head and visualized proximal humerus. The soft tissue structures are unremarkable. Normal visualized pulmonary apex. RAD/Shoulder min 2 Views IMPRESSION: 1. No acute fracture or dislocation. 2. Severe glenohumeral joint arthrosis. 3. Moderate acromioclavicular joint arthrosis. Electronically Signed: Miquel Ramirez MD at 21:43 EST ,
--- NOTE | 2023-04-26 20:40 | RAD_ITS ---
STUDY: X-RAY - UNILATERAL RIBS ( RIGHT ) WITH CHEST REASON FOR EXAM: Male, 67 years old. fall TECHNIQUE - RIBS: 4 view(s) of the ribs. TECHNIQUE - CHEST: Single PA view of the chest. COMPARISON: 04/26/2023 FINDINGS - RIBS: Normal visualized ribs without a demonstrated fracture. FINDINGS - CHEST: The lungs are clear and expanded. Elevated right hemidiaphragm which is unchanged Normal size heart. Normal mediastinum and sue. Normal visualized pulmonary arteries. Normal visualized aortic arch and descending thoracic aorta. Normal visualized thoracic spine. Normal visualized ribs, clavicles, and shoulders. There is no demonstrated abnormality of the visualized soft tissue structures of the upper abdomen. RAD/Ribs Uni Min 3V w/PA Chest IMPRESSION: RIBS: Normal x-ray examination of the ribs. CHEST: Normal x-ray examination of the chest. Electronically Signed: Miquel Ramirez MD at 21:47 EST ,
--- OUTSIDE RECORDS SUMMARY | 2023-04-26 20:43 | XMS RPT_ITS | CCD ---
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 / Z79.82(ICD-10) Onset: 08-07-2017 Unclassified (1 source) jail (current) use of insulin / Z79.4(ICD-10) Onset: [...] Unclassified (1 source) Athscl heart disease of [place] coronary artery w/o ang pctrs / I25.10(ICD-10) [...] / Z68.41(ICD-10) Onset: 11-07-2017 Unclassified (1 source) jail (current) use of antithrombotics/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 / Z79.02(ICD-10) [...] Evaluation and management of inpatient AIMEE SOOD Facility:[facility] Start: 10-25-2017 Patient encounter AIMEE Mcpherson Facility:[facility] Start: 10-10-2017 Patient encounter AIMEE Mcpherson Facility:[id number] Start: 08-22-2017 Patient encounter AIMEE Mcpherson Facility:[id number] Start: 08-07-2017 End: 08-07-2017 Patient encounter AIMEE SOOD Facility:[facility] Start: 08-07-2017 Patient encounter Liam Alfred Facility:[facility] Start: 07-31-2017 Patient encounter AIMEE Mcpherson Facility:[facility] Start: 06-15-2017 End: 06-15-2017 Patient encounter Jeane Beth Facility:[facility] Start: 06-15-2017 Emergency department visit limited/minor prob AIMEE SOOD [facility] Start: 06-15-2017 End: 06-15-2017 Patient encounter AIMEE SOOD Facility:[facility] Start: 06-12-2017 Patient encounter AIMEE Mcpherson Facility:[facility] Start: 06-12-2017 Patient encounter AIMEE Mcpherson Facility:[facility] Procedures Date Procedure Procedure Detail Performing [...] ptum, Via Natural or Artificial Opening Endoscopic IAMEE SOOD Start: 11-06-2017 Excision of Nasal Tu [...] SOOD Payers Date Payer Category Payer Medicare [id number] Unknown [id number] Summary Purpose Family History No Family History Records FoundNo Family History Records Found Advance Directives No Advanced Directives Records FoundNo Advanced Directives Records Found Additional Source Comments (unrecognized sect ion and content) No Status Records FoundNo Status Records Found INFORMATION SOURCE (unrecogn ized section and content) DATE CREATED AUTHOR AUTHOR'S [place] 01/31/2018 Mila FOR RECORDS PERTAINING TO PATIENTS WHO ARE [...] BE BASED ON THE PRIMARY CLINICAL RECORDS. [facility] [email or web address] [facility]. provides no warranty or guarantee of the accuracy or completeness of information in this document.
--- NOTE | 2023-04-26 22:17 | HP.PCM.HOS_ITS ---
HPI - General General Date of Admission: 04/26/23 Date of Service: 04/26/23 Chief Complaint: Chest pain and Fall HPI Narrative ELIANE KAY, is a 67 with a past medical history of essential hypertension, hyperlipidemia, DM-2; of unknown control, obesity; with BMI of 33 this admission, FAVIAN, history of secondary pulmonary hypertension, history of DVT/PE, CAD; s/p multiple stents already on Ranolazine, history of paroxysmal atrial fibrillation, chronic diastolic CHF; with preserved LVEF, LVH, history of Seizures, CKD; stage III, chronic anemia, history of MRSA, history of near syncope, history of vertigo, depression with anxiety, OA; with chronic bilateral knee and back pain and history of GI bleed attributed to PUD who presents to [facility] ER complaining of chest pain and fall. Mr. Kay reports his symptoms began earlier in the afternoon today with intermittent chest pain that began at rest along with a corresponding transient fluttering sensation in his chest. His cardiac workup was negative and he was then discharged home from the ER via taxi after the nursing staff ambulated him and made sure he was safe to go. Unfortunately, after he was dropped off at home by the taxi he quickly looked to his side causing him to become dizzy and then he took a few steps and fell onto his Right side striking his shoulder, ribs and knee. To add insult to injury he then allegedly had to lay in the snow for ~20- 30 minutes until his neighbor came out and checked on him. He denies LOC or significant head trauma with his fall. He denies related fever, chills, nausea, vomiting or diaphoresis but he is very interested in rehabilitation. In the ER he was diagnosed with suspected vertigo causing a mechanical fall after a negative cardiac evaluation earlier in the day and he was then admitted to the CDU under observation status for ongoing care for a stay that is expected to be less than 48 hours. [facility] Medical History (Updated 04/27/23 @ 01:[address] Ryan Noel DO) Abnormal chest xray Acquired left ventricular hypertrophy Acute midline thoracic back pain Adult failure to thrive Alcohol abuse Anemia Anxiety and depression Arthritis Asthma Atherosclerosis of coronary artery of [place] heart without angina pectoris Atrial fibrillation Benign essential HTN BiPAP (biphasic positive airway pressure) dependence Chest pain Chronic hypoxemic respiratory failure Chronic pain Chronic pain of both knees Chronic wound of head Colon cancer screening Congestive heart failure Congestive heart failure (CHF) Dark stools Debility Depression Depression Diabetes Dizziness MEANS (dyspnea on exertion) DVT (deep venous thrombosis) Dyspnea on exertion Essential (primary) hypertension Fatigue Gastric ulcer GERD (gastroesophageal reflux disease) GI bleed Health care maintenance Hearing loss, left Hearing loss, right Heart failure with preserved ejection fraction History of DVT (deep vein thrombosis) History of pulmonary embolism Hypercalcemia Hyperlipidemia Hyperparathyroidism Hypertension Hyperthyroidism Hypertriglyceridemia Hypoxia Insomnia Irregular heart beat Kidney stones Morbid obesity with BMI of 40.0-44.9, adult Near syncope Obesity Olecranon bursitis FAVIAN (obstructive sleep apnea) Osteoarthritis Osteopenia Primary hyperparathyroidism Pure hypercholesterolemia Renal insufficiency Sciatica Secondary pulmonary hypertension Seizures Shortness of breath Sleep apnea Stage 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 disease (CKD) Type 2 diabetes mellitus Vertigo Vision loss of left eye Vision loss of right eye Vitamin D deficiency Home Medications Handicap Placard #1 ea 04/08/20 [Rx Last Taken Unknown] flash glucose scanning reader (AzulStar Tiffanie 2 [place]) #1 ea 02/16/21 [Rx Last Taken Unknown] pen needle, diabetic 32 gauge x 5/32 (BD Ultra-Fine Lorie Pen Needle) #360 ea 04/08/22 [Rx Last Taken Unknown] ferrous sulfate 325 mg (65 mg iron) tablet 325 mg PO DAILY #90 tabs 08/18/22 [Rx Last Taken 10/16/22] cholecalciferol (vitamin D3) 1,250 mcg (50,000 unit) capsule 1,250 mcg PO QWEEK #8 caps 09/07/22 [Rx Last Taken 10/10/22] clopidogrel 75 mg tablet 75 mg PO DAILY BLOOD THINNER #90 tabs 10/03/22 [Rx Last Taken 02/25/23] fenofibrate micronized 200 mg capsule 200 mg PO DAILY cholesterol #30 caps 10/20/22 [Rx Last Taken Unknown] losartan 25 mg tablet 25 mg PO DAILY blood pressure #90 tabs 12/08/22 [Rx Last Taken Unknown] ranolazine 500 mg tablet,extended release,12 hr 500 mg PO BID chest pain #180 tabs 12/20/22 [Rx Last Taken Unknown] pantoprazole 40 mg tablet,delayed release 40 mg PO BID #60 tabs 03/03/23 [Rx Last Taken Unknown] blood sugar diagnostic ([employer]uch Verio test strips) #100 ea 11/28/23 [Rx Last Taken Unknown] cinacalcet 30 mg tablet 30 mg PO BID hypercalcemia #60 tabs 03/07/23 [Rx Last Taken Unknown] sucralfate 1 gram tablet 1 g PO 1HR_ACHS #1 TAB 03/18/23 [Rx Last Taken Unknown] albuterol sulfate 90 mcg/actuation aerosol inhaler 2 puff inhalation Q6H PRN shortness of breath or wheezing 04/14/23 [History Last Taken Unknown] amlodipine 5 mg tablet 10 mg PO DAILY 04/14/23 [History Last Taken Unknown] furosemide 40 mg tablet 40 mg PO DAILY 04/14/23 [History Last Taken Unknown] nitroglycerin 0.4 mg sublingual tablet 0.4 mg sublingual Q5M PRN chest pain 04/14/23 [History Last Taken Unknown] paroxetine HCl 40 mg tablet 40 mg PO DAILY 04/14/23 [History Last Taken Unknown] potassium chloride 20 mEq tablet,extended release 20 meq PO DAILY 04/14/23 [History Last Taken Unknown] compress.stocking,knee,reg,lrg #2 ea 04/15/23 [Rx Last Taken Unknown] flash glucose sensor (FreeStyle Tiffanie 2 Sensor kit) #2 ea 04/15/23 [Rx Last Taken Unknown] insulin regular hum U-500 conc 500 unit/mL(3 mL) subcut pen (Humulin R U-500 (Conc) Insulin Kwikpen) 30 unit subcut 04/26/23 [History Last Taken Unknown] metoprolol succinate 50 mg tablet,extended release 24 hr 50 mg PO Q12H 04/26/23 [History Last Taken Unknown] potassium chloride 20 mEq tablet,extended release(part/cryst) 20 meq PO BID 04/26/23 [History Last Taken Unknown] semaglutide 1 mg/dose (4 mg/3 mL) subcutaneous pen injector (Ozempic) 1 mg subcut QWEEK 04/26/23 [History Last Taken Unknown] Allergy/AdvReac Type Severity Reaction Status Date / Time No Known Allergies Allergy Verified 04/26/23 19:23 Family History Mother Colon cancer Sister CAD (coronary artery disease) CABG x 5 Diabetes Myocardial infarction, Onset Age: 67 Father Crohns disease Surgical History History of appendectomy History of appendectomy 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) History of coronary artery stent placement (10/21/22) History of eye surgery History of hip replacement History of intestinal surgery History of knee surgery History of tonsillectomy and adenoidectomy Social History household members: none housing: apartment other: working in [employer] and [employer]. Smoking Status: Never smoker second hand exposure: Yes alcohol intake: former year quit: 2003 details: Sober since 2003. substance use type: former substance user Date of last use: 04/10/2004 and marijuana caffeine: Yes Type: carbonated beverages Number of servings: 2 and coffee Number of servings: 2 what type of physical activity do you participate in: none ROS ROS Narrative Review of systems: Constitutional: Patient denies fever or chills. Eyes: Patient denies visual changes or discharge from eyes. ENT: Patient denies ear pain, sore throat or runny nose. Cardiovascular: Patient admits to chest pain and palpitations. Respiratory: Patient denies shortness of breath or cough. Gastrointestinal: Patient denies abdominal pain, nausea, vomiting, diarrhea or constipation. Genitourinary: Patient denies dysuria, hematuria or urinary frequency. Musculoskeletal: Patient admits to extensive right-sided pain in his shoulder ribs and knee since his fall. Integumentary: Patient denies significant abrasions or rash. Neurologic: Patient admits to generalized weakness but denies headache, paresthesias or focal neurologic weakness. Psychiatric: Patient denies uncontrolled depression or anxiety. Allergic: Patient denies lip swelling, tongue swelling or urticaria. 14 point review of systems otherwise negative except for positives noted above in HPI. Vital Signs Vital Signs Vital Signs: 04/26/23 19:15 04/26/23 20:23 Temperature 96.4 F L Temperature Source Temporal Pulse Rate 88 Respiratory Rate 15 Respiratory Effort Normal Respiratory Depth Normal Respiratory Pattern Normal Blood Pressure 124/91 H Blood Pressure Mean 102 Pulse Ox 94 Oxygen Delivery Method Room Air Room Air Physical Exam Const alert, oriented x3, no apparent distress and healthy appearing Constitutional Narrative: Patient appears morbidly obese and chronically ill. General Appearance: cooperative HEENT normocephalic, head/scalp atraumatic, hearing grossly normal bilaterally and moist oral mucous membranes Eyes PERRL and EOMs intact bilaterally Neck no lymphadenopathy and supple Resp normal respiratory effort, no retractions, no use of accessory muscles and clear to auscultation bilaterally Cardio regular rate and regular rhythm GI normal to inspection, nondistended, normoactive bowel sounds, soft to palpation, non-tender and non-distended GI Narrative: Morbidly obese. Extremity normal to inspection Skin Skin Narrative: Patient has no evidence of rash at this time. Neuro oriented x3, CN's II-XII intact bilaterally, moves all extremities and no focal motor deficits Sensorium / Orientation: awake, alert, oriented to person, oriented to place and oriented to time Speech: speech normal Motor Exam: strength 5/5 throughout Psych affect normal Results Medical Records Data Attestation: I reviewed the patient's medical records Lab / Micro Data Attestation: I reviewed the patient's lab results. Labs: [facility] [address] [place] [address] Echo Complete 10/21/22 1124 MR#: [id number] Acct: [id number] Name: ELIANE KAY Rep #: [id number] : 1955 66 From: Ty Rocha MD Attending Dr: Dr. Ryan Coreas MD Status: ADM IN Ordering Dr: Purvi Jensen MD Date: 10/21/22 Location: PCU Sex: M C Admitted: 10/21/22 Reason For Study: PAF, CHF Procedure This was a 2D Doppler, Color Flow transthoracic echocardiogram. Exam performed portable in patient room. Left Ventricle Normal left ventricle. The estimated ejection fraction is 55-60 %. Right Ventricle Normal right ventricle. Normal systolic function. Atria The left atrium is moderately enlarged. The right atrium is mildly enlarged. Mitral Valve There is mild to moderate mitral annular calcification. Moderate (2+) mitral valve insufficiency. Tricuspid Valve Normal tricuspid valve. Mild tricuspid valve insufficiency. Aortic Valve Normal aortic valve. Mild (1+) aortic valve insufficiency. Pulmonic Valve The pulmonic valve is not well visualized. Great Vessels Normal aortic root. Pericardium/Pleural No pericardial effusion. MMode/2D Measurements & Calculations LVIDd: 5.6 cm IVSd: 1.5 cm Ao root diam: 3.8 cm LVIDs: 3.5 cm LVPWd: 0.95 cm LA dimension: 5.0 cm RVDd: 4.2 cm FS: 37.6 % _ LAV(MOD-bp): 88.1 ml LA A4 area: 25.8 cm2 LA dimension(2D): 5.5 cm LAV(MOD-bp) Indexed: 37.4 ml/m2 LAV(MOD-sp2): 86.7 ml LAV(MOD-sp4): 79.2 ml _ RA A4 area: 23.1 cm2 Time Measurements MV dec time: 0.18 sec Doppler Measurements & Calculations MV E max alexy: 83.5 cm/sec Ao V2 max: 127.1 cm/sec AI max alexy: 321.2 cm/sec Ao max P.5 mmHg AI max P.3 mmHg Ao V2 mean: 83.6 cm/sec AI dec slope: 137.4 cm/sec2 Ao mean P.3 mmHg AI P1/2t: 684.5 msec Ao V2 VTI: 24.0 cm AV (velocity ratio): 0.76 __ LV V1 max: 91.7 cm/sec PA V2 max: 78.6 cm/sec TR max alexy: 306.6 cm/sec LV V1 max P.4 mmHg TR max P.6 mmHg LV V1 mean P.9 mmHg LV V1 mean: 66.0 cm/sec LV V1 VTI: 18.3 cm ECHO/Echo Complete Interpretation Summary The estimated ejection fraction is 55-60 %. Normal LV systolic function Moderate MR In comparison to the echo in May 19, 2021 moderate MR noted. Ordering Physician: Purvi Jensen Referring Physician: Mery Raymond Performed By: Sarah Mendez, SAMARIA, RVT 10/21/22 1602 Date Ty Rocha MD CC: Dr. Purvi Jensen MD; Dr. Ryan Coreas MD; Dr. Mery Raymond MD ~ Date Dictated: 10/21/22 1124 Date Transcribed: 10/21/22 1602 Reports Analysis Manager: Signed [facility]aga[facility] Radiology Impression Brain CT 04/26/23 20:23 IMPRESSION: Small occipital scalp hematoma. No acute intracranial hemorrhage. Electronically Signed: Miquel Ramirez MD at 21:41 EST , Knee X-Ray 04/26/23 20:40 IMPRESSION: No acute fracture or dislocation. Severe arthrosis. Moderate joint effusion. Electronically Signed: Miquel Ramirez MD at 21:45 EST , Ribs w/Chest X-Ray 04/26/23 20:40 IMPRESSION: RIBS: Normal x-ray examination of the ribs. CHEST: Normal x-ray examination of the chest. Electronically Signed: Miquel Ramirez MD at 21:47 EST Reading Location ID and State: [id number] / [facility] Tel , Service support , Shoulder X-Ray 04/26/23 20:40 IMPRESSION: 1. No acute fracture or dislocation. 2. Severe glenohumeral joint arthrosis. 3. Moderate acromioclavicular joint arthrosis. Electronically Signed: Miquel Ramirez MD at 21:43 EST Reading Location ID and State: [employer] / [facility] Tel , Service support , Assessment & Plan Assessment/Plan (1) Vertigo: (2) Fall: QUALIFIERS: Encounter type: initial encounter Qualified Code(s): W19.XXXA - Unspecified fall, initial encounter (3) Generalized weakness: (4) Ambulatory dysfunction: (5) Chest pain: QUALIFIERS: Chest pain type: unspecified Qualified Code(s): R07.9 - Chest pain, unspecified PLAN: Plan 1. Acute vertigo with mechanical fall and persistent Right-sided soreness in the setting of known vertigo and near syncope - Admit to CDU under observation status. Give Antivert prn for breakthrough vertigo symptoms. PT/OT and case management to consult and treat with help to find a rehabilitation center appreciated in advance. 2. OA; with chronic bilateral knee and back pain complicating #1 - Noted. Give Tylenol prn for [id number] (level 1-5/10) pain or fever. Give Morphine IV prn for severe (level 6-10/10) pain. 3. Generalized weakness with ambulatory dysfunction arising from #1 & #2 - Patient only to be gotten up with assistance due to increased fall risk. 4. Obesity; with BMI of 33.9 this admission plus FAVIAN adding to the pathology of #1 - #3 - Weight loss will be recommended. Check TSH. 5. CAD; s/p multiple stents already on Ranolazine with negative cardiac evaluation in the ER earlier today - Continue home regimen as previous with patient on Plavix and Ranolazine plus prn SL NTG. Recent echocardiogram done in 10/2022 noted with normal LVEF listed above. 6. History of paroxysmal atrial fibrillation - Stable in NSR with full anticoagulation held due to increased risk of recurrent GI bleed. 7. History of GI bleed attributed to PUD - Noted. Avoid full-anticoagulation if possible to minimize risk of recurrent bleeding. 8. Essential hypertension - Resume home regimen as previous. 9. Hyperlipidemia - Continue statin. 10. DM-2; of unknown control - ADA diet. FSBS q. AC/HS plus SSI. Check HgbA1c to objectively evaluate quality of diabetic control. 11. History of secondary pulmonary hypertension - Noted. 12. History of DVT/PE - Noted. 13. Chronic diastolic CHF; with preserved LVEF - Stable. 14. LVH - Noted. 15. History of Seizures - Stable with no evidence of recurrence. 16. CKD; stage III - Stable. 17. Chronic anemia - Stable. 18. History of MRSA - Noted. Place on contact precautions. 19. Depression with anxiety - Continue home regimen as previous. 20. DVT prophylaxis - SCD's only with reports of recent GI bleed. Total time: Approximately 45 minutes. Charges/Coding Visit Charges OBSV E&M: [id number] Observ/hosp same date L1
[2023-04-26] MEDS: Acetaminophen 500 MG Tablet 1000 MG PO (22:21)
--- OUTSIDE RECORDS SUMMARY | 2023-04-26 22:42 | XMS RPT_ITS | CCD ---
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 / Z79.82(ICD-10) Onset: 08-07-2017 Unclassified (1 source) correction (current) use of insulin / Z79.4(ICD-10) Onset: [...] Unclassified (1 source) Athscl heart disease of [place] coronary artery w/o ang pctrs / I25.10(ICD-10) [...] / Z68.41(ICD-10) Onset: 11-07-2017 Unclassified (1 source) correction (current) use of antithrombotics/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 / Z79.02(ICD-10) [...] Evaluation and management of inpatient AIMEE SOOD Facility:[facility] Start: 10-25-2017 Patient encounter AIMEE Mcpherson Facility:[facility] Start: 10-10-2017 Patient encounter AIMEE Mcpherson Facility:[id number] Start: 08-22-2017 Patient encounter AIMEE Mcpherson Facility:[id number] Start: 08-07-2017 End: 08-07-2017 Patient encounter AIMEE SOOD Facility:[facility] Start: 08-07-2017 Patient encounter Liam Alfred Facility:[facility] Start: 07-31-2017 Patient encounter AIMEE Mcpherson Facility:[facility] Start: 06-15-2017 End: 06-15-2017 Patient encounter Jeane Beth Facility:[facility] Start: 06-15-2017 Emergency department visit limited/minor prob AIMEE SOOD [facility] Start: 06-15-2017 End: 06-15-2017 Patient encounter AIMEE SOOD Facility:[facility] Start: 06-12-2017 Patient encounter AIMEE Mcpherson Facility:[facility] Start: 06-12-2017 Patient encounter AIMEE Mcpherson Facility:[facility] Procedures Date Procedure Procedure Detail Performing [...] SOOD Payers Date Payer Category Payer Medicare [id number] Unknown [id number] Summary Purpose Family History No Family History Records FoundNo Family History Records Found Advance Directives No Advanced Directives Records FoundNo Advanced Directives Records Found Additional Source Comments (unrecognized sect ion and content) No Status Records FoundNo Status Records Found INFORMATION SOURCE (unrecogn ized section and content) DATE CREATED AUTHOR AUTHOR'S GOLDIE HILLS 01/31/2018 [place] FOR RECORDS PERTAINING TO PATIENTS WHO ARE [...] BE BASED ON THE PRIMARY CLINICAL RECORDS. [facility] [employer] [facility]. provides no warranty or guarantee of the accuracy or completeness of information in this document.
[2023-04-27] VITALS (7 sets, daily range): BP systolic 126–166; BP diastolic 72–86; PULSE 66–75; RESP 16; TEMP 36.4–36.9; O2SAT 92–96; BMI 33.9
[2023-04-27] MEDS: Lactated Ringers 1,000 ML 100 ML IV ×2 (00:44→10:38)
[2023-04-27] MEDS: 0.9% Saline Lock 10 ML Syringe IV ×4 (00:45→20:34)
[2023-04-27] MEDS: Morphine 2 MG/ML Syringe IV ×5 (01:36→20:33)
--- OUTSIDE RECORDS SUMMARY | 2023-04-27 02:25 | XMS RPT_ITS | CCD ---
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 of aspirin / Z79.82(ICD-10) Onset: 08-07-2017 Unclassified (1 source) prison (current) use of insulin / Z79.4(ICD-10) Onset: [...] Unclassified (1 source) Athscl heart disease of [place] coronary artery w/o ang pctrs / I25.10(ICD-10) [...] / Z68.41(ICD-10) Onset: 11-07-2017 Unclassified (1 source) prison (current) use of antithrombotics/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 / Z79.02(ICD-10) [...] Evaluation and management of inpatient AIMEE SOOD Facility:[facility] Start: 10-25-2017 Patient encounter AIMEE Mcpherson Facility:[facility] Start: 10-10-2017 Patient encounter AIMEE Mcpherson Facility:[id number] Start: 08-22-2017 Patient encounter AIMEE Mcpherson Facility:[id number] Start: 08-07-2017 End: 08-07-2017 Patient encounter AIMEE SOOD Facility:[facility] Start: 08-07-2017 Patient encounter Liam Alfred Facility:[facility] Start: 07-31-2017 Patient encounter AIMEE Mcpherson Facility:[facility] Start: 06-15-2017 End: 06-15-2017 Patient encounter Jeane Beth Facility:[facility] Start: 06-15-2017 Emergency department visit limited/minor prob AIMEE SOOD [facility] Start: 06-15-2017 End: 06-15-2017 Patient encounter AIMEE SOOD Facility:[facility] Start: 06-12-2017 Patient encounter AIMEE Mcpherson Facility:[facility] Start: 06-12-2017 Patient encounter AIMEE Mcpherson Facility:[facility] Procedures Date Procedure Procedure Detail [...] SOOD Payers Date Payer Category Payer Medicare [id number] Unknown [id number] Summary Purpose Family History No Family History Records FoundNo Family History Records Found Advance Directives No Advanced Directives Records FoundNo Advanced Directives Records Found Additional Source Comments (unrecognized sect ion and content) No Status Records FoundNo Status Records Found INFORMATION SOURCE (unrecogn ized section and content) DATE CREATED AUTHOR AUTHOR'S GOLDIE HILLS 01/31/2018 [employer] FOR RECORDS PERTAINING TO PATIENTS WHO ARE [...] BE BASED ON THE PRIMARY CLINICAL RECORDS. [facility] [employer] [facility]. provides no warranty or guarantee of the accuracy or completeness of information in this document.
[2023-04-27] MEDS: Sucralfate 1 GM Tablet PO ×4 (06:32→21:19)
[2023-04-27 07:20] LABS: Bedside Glucose 105 mg/dL (74-106)
[2023-04-27 07:49] LABS: Absolute Neutrophil Count 5.1 X10^3/uL (2.0-7.7); Basophil# 0.04 X10^3/uL; Basophil% 0.6 % (0-1); Eosinophil# 0.12 X10^3/uL; Eosinophils% 1.8 % (0-5); Hematocrit 30.8 % (40-54); Hemoglobin 9.8 g/dL (13.0-16.5); Lymphocyte % 7.4 % (19-41); Mean Corp Hgb Conc 31.8 g/dL (32-36); Mean Corpuscular Hgb 27.7 pg (27.0-32.0); Mean Platelet Vol. 9.3 fl (6.2-12.0); Monocyte# 0.92 X10^3/uL; Monocyte% 13.6 % (0-10); NRBC Flagged by Analyzer 0 % (0-5); Neutrophil # 5.14 X10^3/uL (2.7-7.7); POSITIVE DIFFERENTIAL YES; Platelet Count 305 K/mm3 (150-450); RBC Distribution Width CV 16.5 % (11.6-14.6); RBC Distribution Width SD 51.8 fl (35.1-43.9); Red Blood Count 3.54 M/mm3 (4.6-6.2); White Blood Count 6.8 K/mm3 (4.4-11.0)
[2023-04-27 08:05] LABS: Differential Indicated SCAN CRITERIA MET
[2023-04-27] MEDS: Ferrous Sulfate 325 MG Tablet PO (08:19)
[2023-04-27] MEDS: Potassium Chloride Oral Tablet 20 MEQ PO (08:19)
[2023-04-27] MEDS: Cinacalcet HCl 30 MG Tablet PO ×2 (08:19→16:29)
[2023-04-27] MEDS: Acetaminophen 325 MG Tablet 650 MG PO (08:19)
[2023-04-27 08:25] LABS: AST(SGOT) 25 U/L (15-37); Alanine Aminotransfer ALT/SGPT 26 U/L (16-61); Albumin, Serum 3.3 g/dL (3.2-5.0); Alkaline Phosphatase 54 U/L (45-117); Anion Gap 7 (5-15); BUN 45 mg/dL (7-18); BUN/Creat Ratio 22.3 RATIO (10-20); Chloride 109 mmol/L (98-107); Creatinine, Serum 2.02 mg/dL (0.70-1.30); EST Glomerular Filtration Rate 35 mL/min (>60); Est Glom Filt Rate - Afr Amer 43 mL/min (>60); Estimated Creatinine Clearance 44.12 ml/min; Globulin 3.2 g/dL (2.2-4.2); Glucose 103 mg/dL (74-106); Magnesium 1.9 mg/dL (1.6-2.6); Phosphorus 3.3 mg/dL (2.5-4.9); Potassium 3.2 mmol/L (3.5-5.1); Protein, Total 6.5 g/dL (6.4-8.2); Sodium Level 140 mmol/L (136-145); Thyroid Stim Hormone (TSH) 2.65 uIU/mL (0.358-3.74)
--- NOTE | 2023-04-27 09:58 | CASEMGMT ---
CLARITA IBARRA NOTE: Call received from Caridad @ [facility]. She is aware pt has been admitted to [facility] and possibility of pt going to SNF @ d/c. She asks for updates to be sent to them via Careport once dc plan is determined. Jennifer, business planner, made aware. Kris SEVERINO RN CM
--- NOTE | 2023-04-27 10:01 | CASEMGMT ---
Discharge Planning A list of SNF providers including quality and resource use data and consistent with the patient's preferred geographic region, medical needs, and insurance network was created in CarePort Guide.? This list was provided to the SW. Jennifer Stringer Discharge Planning Asst.
[2023-04-27] MEDS: Furosemide 40 MG Tablet PO (10:43)
[2023-04-27] MEDS: amLODIPine 10 MG Tablet PO (10:43)
[2023-04-27] MEDS: Metoprolol(XL)Succ 50 MG Tablet PO ×2 (10:43→21:20)
[2023-04-27] MEDS: Fenofibrate 145 MG Tablet PO (10:43)
[2023-04-27] MEDS: Paroxetine 20 MG Tablet 40 MG PO (10:43)
[2023-04-27] MEDS: Pantoprazole Sodium 40 MG Tablet PO ×2 (10:43→21:19)
[2023-04-27] MEDS: Losartan Potassium 25 MG Tablet PO (10:43)
[2023-04-27] MEDS: Clopidogrel Bisulfate 75 MG Tablet PO (10:43)
[2023-04-27] MEDS: Ranolazine 500 MG Tablet PO ×2 (10:43→21:19)
[2023-04-27] MEDS: Potassium Chloride Oral Tablet 20 MEQ 40 MEQ PO (11:23)
[2023-04-27] MEDS: Insulin Lispro 100 UNIT/ML INSULN.PEN SC ×3 (11:28→21:18)
[2023-04-27 12:11] LABS: Bedside Glucose 166 mg/dL (74-106)
--- NOTE | 2023-04-27 16:19 | CASEMGMT ---
SW met with patient. Introduced self and role at [facility]. Patient has expressed interest in going to a long-term for rehab. Patient said he thinks he did too well with therapy. SW has not viewed patient's therapy notes yet as they are not in the computer yet. SW asked patient if he has ever applied for Medicaid. Patient said he did in the past and was told he has too much money. Patient thinks it was for community Medicaid. SW asked patient if he could private pay. Patient said he might be able to for a little while. SW said he thought the private pay do only covers room and board not medical care. SW told patient can check with whichever facility he would want to go to. SW did provide patient with a list of [facility] facility providers including quality and resource use data and consistent with patient?s preferred geographic region, medical needs, and insurance network were provided from the CarePort Guide. Patient said he was thinking about [facility]. SW told patient SW will check back with him tomorrow. Dipika FANG
--- NOTE | 2023-04-27 18:05 | CASEMGMT ---
Met with patient to complete MONTES form. MONTES form explained to patient who voiced understanding and signed form. Original form placed in pt?s chart and copy provided to?patient. Jennifer Stringer, Discharge Planning Asst
--- NOTE | 2023-04-27 18:55 | PN.HOSP_ITS ---
Reason for Visit Reason for Visit: Diagnoses Chest pain, unspecified (04/26/23) Difficulty in walking, not elsewhere classified (04/26/23) Dizziness and giddiness (04/26/23) Weakness (04/26/23) Unspecified fall, initial encounter (04/26/23) Subjective Subjective Feeling somewhat better today though still weak, not presently having chest pain or shortness of breath, dizziness improving Objective Data Objective Data Vital Signs: Vital Signs Temp Pulse Resp BP Pulse Ox O2 Del Method 97.6 F L 66 16 143/73 H 96 Room Air 04/27/23 16:35 04/27/23 16:35 04/27/23 16:35 04/27/23 16:35 04/27/23 16:35 04/27/23 16:35 Oxygen Delivery Method Room Air Weight: 107.3 kg Body Mass Index (BMI) 33.9 Intake & Output: Intake and Output for Last 24 Hours 04/25/23 04/26/23 04/27/23 23:59 23:59 23:59 Intake Total 2251 / 2251 Output Total 650 / 1050 1100 / 1100 Balance -650 / -828 1151 / 1151 Lab / Micro Data 04/27/23 07:00 04/27/23 07:00 Labs: Laboratory Results - last 24 hr 04/27/23 06:31: POC Glucose 105 04/27/23 07:00: WBC 6.8, RBC 3.54 L, Hgb 9.8 L, Hct 30.8 L, MCV 87.0, MCH 27.7, MCHC 31.8 L, RDW Std Deviation 51.8 H, RDW Coeff of Thao 16.5 H, Plt Count 305, MPV 9.3, Immature Gran % (Auto) 0.600, Neut % (Auto) 76.0 H, Lymph % (Auto) 7.4 L, [place] % (Auto) 13.6 H, Eos % (Auto) 1.8, Baso % (Auto) 0.6, Absolute Neuts (auto) 5.1, Absolute Lymphs (auto) 0.50 L, Nucleated RBC % 0, Sodium 140, Potassium 3.2 L, Chloride 109 H, Carbon Dioxide 24.0, Anion Gap 7, BUN 45 H, Creatinine 2.02 H, Estim Creat Clear Calc 44.12, Est GFR (MDRD) Af Amer 43 L, Est GFR (MDRD) Non-Af 35 L, BUN/Creatinine Ratio 22.3 H, Glucose 103, Calcium 10.0, Phosphorus 3.3, Magnesium 1.9, Total Bilirubin 0.60, AST 25, ALT 26, Alkaline Phosphatase 54, Total Protein 6.5, Albumin 3.3, Globulin 3.2, Albumin/Globulin Ratio 1.0, TSH 2.65 04/27/23 11:25: POC Glucose 166 H Radiography Diagnostic Testing: Radiology Impression Brain CT 04/26/23 20:23 IMPRESSION: Small occipital scalp hematoma. No acute intracranial hemorrhage. Electronically Signed: Miquel Ramirez MD at 21:41 EST Reading Location ID and State: [employer] Tel , Service support , Knee X-Ray 04/26/23 20:40 IMPRESSION: No acute fracture or dislocation. Severe arthrosis. Moderate joint effusion. Electronically Signed: Miquel Ramirez MD at 21:45 EST Reading Location ID and State: [employer] Tel , Service support , Ribs w/Chest X-Ray 04/26/23 20:40 IMPRESSION: RIBS: Normal x-ray examination of the ribs. CHEST: Normal x-ray examination of the chest. Electronically Signed: Miquel Ramirez MD at 21:47 EST Reading Location ID and State: [employer] Tel , Service support , Shoulder X-Ray 04/26/23 20:40 IMPRESSION: 1. No acute fracture or dislocation. 2. Severe glenohumeral joint arthrosis. 3. Moderate acromioclavicular joint arthrosis. Electronically Signed: Miquel Ramirez MD at 21:43 EST Reading Location ID and State: [employer] Tel , Service support , Physical Exam Narrative General: Alert, oriented, no apparent distress HEENT: Atraumatic, normocephalic Eyes: Anicteric, normal conjunctiva, extraocular movements grossly intact Neck: Supple Respiratory: Clear to auscultation bilaterally, normal respiratory effort Cardiovascular: Regular rate GI: Soft, nontender, nondistended Extremities: Minimal edema Musculoskeletal: Moving all extremities Neuro: No overt focal neurological deficits Skin: No rashes appreciated Psych: Cooperative Assessment & Plan Assessment/Plan (1) Vertigo: (2) Fall: QUALIFIERS: Encounter type: initial encounter Qualified Code(s): W19.XXXA - Unspecified fall, initial encounter (3) Generalized weakness: (4) Ambulatory dysfunction: (5) Chest pain: QUALIFIERS: Chest pain type: unspecified Qualified Code(s): R07.9 - Chest pain, unspecified PLAN: Plan 1. Acute vertigo with mechanical fall and persistent Right-sided soreness in the setting of known vertigo and near syncope - Admit to CDU under observation status. Give Antivert prn for breakthrough vertigo symptoms. PT/OT and case management to consult and treat with help to find a rehabilitation center appreciated in advance. -04/27: Continue to work with PT/OT, may need vestibular rehab on discharge, was receiving IV fluids, is beginning to feel better 2. OA; with chronic bilateral knee and back pain complicating #1 - Noted. Give Tylenol prn for [id number] (level 1-5/10) pain or fever. Give Morphine IV prn for severe (level 6-10/10) pain. -04/27: As needed pain medication, discussed that patient cannot be on this medication upon discharge and he verbalizes understanding 3. Generalized weakness with ambulatory dysfunction arising from #1 & #2 - Patient only to be gotten up with assistance due to increased fall risk. 4. Obesity; with BMI of 33.9 this admission plus FAVIAN adding to the pathology of #1 - #3 - Weight loss will be recommended. Check TSH. 5. CAD; s/p multiple stents already on Ranolazine with negative cardiac evaluation in the ER earlier today - Continue home regimen as previous with patient on Plavix and Ranolazine plus prn SL NTG. Recent echocardiogram done in 10/2022 noted with normal LVEF listed above. -04/27: Continue present medications 6. History of paroxysmal atrial fibrillation - Stable in NSR with full antic oagulation held due to increased risk of recurrent GI bleed. -04/27: Hemoglobin stable 7. History of GI bleed attributed to PUD - Noted. Avoid full-anticoagulation if possible to minimize risk of recurrent bleeding. -04/27: Hemoglobin stable 8. Essential hypertension - Resume home regimen as previous. 9. Hyperlipidemia - Continue statin. 10. DM-2; of unknown control - ADA diet. FSBS q. AC/HS plus SSI. Check HgbA1c to objectively evaluate quality of diabetic control. 11. History of secondary pulmonary hypertension - Noted. 12. History of DVT/PE - Noted. 13. Chronic diastolic CHF; with preserved LVEF - Stable. -04/27: Had received fluids, is getting little bit edematous, resume home Lasix 14. LVH - Noted. 15. History of Seizures - Stable with no evidence of recurrence. 16. CKD; stage III - Stable. 17. Chronic anemia - Stable. 18. History of MRSA - Noted. Place on contact precautions. 19. Depression with anxiety - Continue home regimen as previous. 20. DVT prophylaxis - SCD's only with reports of recent GI bleed. Time spent in the patient's overall evaluation,decision-making process, review of diagnostic data, adjustment of management, discussion with other providers, nursing nursing and ancillary staff involved in patient's care documentation, 35 minutes [employer] Reflex Medical hold order details:: IF a medical hold is selected below, a suggested order for a MEDICAL HOLD will reflex upon signing the document. Next of kin: [place] law dictates a PRIORITY LIST for identifying legal decision-maker/legal next of kin in the following order (LNOK): 1st: The patient?s legal guardian, if any 2nd: The patient's spouse (if status is questionable, consult Risk Management) 3rd: The patient?s adult child(more) (majority, if multiple children) 4th: The patient?s parents 5th: The patient?s adult siblings (majority, if multiple children siblings) Charges/Coding Visit Charges Inpatient E&M: 63729 Subs Hosp L2
[2023-04-27 18:56] LABS: Bedside Glucose 163 mg/dL (74-106)
[2023-04-27 21:41] LABS: Bedside Glucose 167 mg/dL (74-106)
[2023-04-28] VITALS (8 sets, daily range): BP systolic 128–145; BP diastolic 64–93; PULSE 69–75; RESP 15–17; TEMP 36.6–36.8; O2SAT 87–99
[2023-04-28] MEDS: SimETHICONE 80 MG Chewable Tablet PO (01:44)
[2023-04-28] MEDS: Ondansetron 4 MG/2 ML Vial IV (01:44)
[2023-04-28] MEDS: Sucralfate 1 GM Tablet PO ×4 (06:37→21:59)
[2023-04-28 06:59] LABS: Bedside Glucose 135 mg/dL (74-106)
[2023-04-28 07:29] LABS: Absolute Lymphocyte Count 0.43 X10^3/uL (0.83-4.51); Basophil# 0.05 X10^3/uL; Basophil% 0.5 % (0-1); Eosinophil# 0.14 X10^3/uL; Eosinophils% 1.4 % (0-5); Hematocrit 31.6 % (40-54); Hemoglobin 9.6 g/dL (13.0-16.5); Lymphocyte # 0.43 X10^3/ul (0.83-4.51); Lymphocyte % 4.4 % (19-41); Mean Corp Hgb Conc 30.4 g/dL (32-36); Mean Platelet Vol. 9.2 fl (6.2-12.0); Monocyte# 1.17 X10^3/uL; Monocyte% 11.9 % (0-10); NRBC Flagged by Analyzer 0 % (0-5); Neutrophil # 7.99 X10^3/uL (2.7-7.7); Neutrophil % 81.4 % (47-70); POSITIVE DIFFERENTIAL YES; Platelet Count 278 K/mm3 (150-450); RBC Distribution Width CV 16.4 % (11.6-14.6); RBC Distribution Width SD 53.2 fl (35.1-43.9); Red Blood Count 3.55 M/mm3 (4.6-6.2); White Blood Count 9.8 K/mm3 (4.4-11.0)
[2023-04-28 07:33] LABS: Differential Indicated SCAN CRITERIA MET
[2023-04-28 07:47] LABS: Differential Comment SCANNED
[2023-04-28 07:49] LABS: Anion Gap 4 (5-15); BUN 36 mg/dL (7-18); BUN/Creat Ratio 18.7 RATIO (10-20); Calcium,Total 10.5 mg/dL (8.5-10.1); Chloride 110 mmol/L (98-107); Creatinine, Serum 1.93 mg/dL (0.70-1.30); EST Glomerular Filtration Rate 37 mL/min (>60); Est Glom Filt Rate - Afr Amer 45 mL/min (>60); Estimated Creatinine Clearance 46.18 ml/min; Glucose 147 mg/dL (74-106); Potassium 3.5 mmol/L (3.5-5.1); Sodium Level 141 mmol/L (136-145)
[2023-04-28] MEDS: Acetaminophen 325 MG Tablet 650 MG PO (08:37)
[2023-04-28] MEDS: Pantoprazole Sodium 40 MG Tablet PO ×2 (08:38→21:59)
[2023-04-28] MEDS: Ferrous Sulfate 325 MG Tablet PO (08:38)
[2023-04-28] MEDS: Cinacalcet HCl 30 MG Tablet PO ×2 (08:38→16:56)
[2023-04-28] MEDS: Paroxetine 20 MG Tablet 40 MG PO (08:38)
[2023-04-28] MEDS: Potassium Chloride Oral Tablet 20 MEQ PO (08:38)
[2023-04-28] MEDS: Ranolazine 500 MG Tablet PO ×2 (08:38→21:59)
[2023-04-28] MEDS: Fenofibrate 145 MG Tablet PO (08:38)
[2023-04-28] MEDS: Furosemide 40 MG Tablet PO (08:38)
[2023-04-28] MEDS: Clopidogrel Bisulfate 75 MG Tablet PO (08:38)
[2023-04-28] MEDS: Metoprolol(XL)Succ 50 MG Tablet PO ×2 (08:39→21:59)
[2023-04-28] MEDS: Losartan Potassium 25 MG Tablet PO (08:40)
--- NOTE | 2023-04-28 08:50 | CASEMGMT ---
GLORIA spoke with patient and explained it would be worth trying to see if insurance would approve him for senior living. Patient said he would like [facility], but was not super happy last time. SW asked patient if he wanted to try somewhere else. Patient declined stating he prefers to go to where he is familiar with and his nephew lives near there also. GLORIA let patient know a referral will be made to [facility] and if they can take him they will work on getting his insurance to approve him. GLORIA explained that we will likely not hear until the beginning of next week. Await response from [facility]. Dipika Orr [employer]
--- NOTE | 2023-04-28 09:00 | CASEMGMT ---
Discharge Planning Referral sent to [facility] via [facility]. Jennifer Stringer, Discharge Planning Asst.
[2023-04-28] MEDS: amLODIPine 10 MG Tablet PO (10:48)
--- NOTE | 2023-04-28 11:00 | RAD_ITS ---
INDICATION: Fall on R elbow w/ pain EXAMINATION/TECHNIQUE: X-RAY - RIGHT XR Elbow 2 Views COMPARISON: Prior study dated: 10/17/2022. FINDINGS: SOFT TISSUES: Soft tissue swelling posterior elbow near the triceps insertion with mild irregularity of the olecranon process. No radiopaque foreign body. BONES/JOINTS: There is no displacement of the anterior or posterior fat pads. No acute fracture or subluxation. Normal alignment. Preservation of the joint space. No sclerotic or destructive changes observed. RAD/Elbow 2 Views IMPRESSION: No evidence of acute fracture. Soft tissue swelling posteriorly could reflect tendinitis. Electronically Signed: Mahendra Blackman MD at 11:43 EST ,
--- NOTE | 2023-04-28 11:00 | RAD_ITS ---
INDICATION: Hypoxia EXAMINATION/TECHNIQUE: X-RAY - XR Chest 1 View COMPARISON: Prior study dated: 04/26/2023. FINDINGS: LINES/DEVICES: None. LUNGS: No consolidation, edema or effusion. No pneumothorax. MEDIASTINUM AND CARDIOVASCULAR STRUCTURES: Cardiac silhouette not enlarged. Central airways and mediastinal contour are unremarkable. BONES AND SOFT TISSUES: Degenerative changes of the bilateral shoulders. RAD/Chest 1 View (Portable) IMPRESSION: No radiographic evidence of acute cardiopulmonary disease. Electronically Signed: Mahendra Blackman MD at 11:20 EST ,
[2023-04-28] MEDS: oxyCODONE 5 MG Tablet PO ×3 (11:09→22:04)
[2023-04-28] MEDS: Insulin Lispro 100 UNIT/ML INSULN.PEN SC ×3 (11:12→21:59)
--- NOTE | 2023-04-28 11:31 | CASEMGMT ---
[facility] accepted patient and will start pre-cert. Plan: [facility] pending insurance approval. Dipika FANG
[2023-04-28 12:00] LABS: Bedside Glucose 222 mg/dL (74-106)
--- NOTE | 2023-04-28 12:25 | PCM.PN.HOSP ---
Reason for Visit Reason for Visit: Diagnoses Chest pain, unspecified (04/26/23) Difficulty in walking, not elsewhere classified (04/26/23) Dizziness and giddiness (04/26/23) Weakness (04/26/23) Unspecified fall, initial encounter (04/26/23) Subjective Subjective Patient still feeling weak, dizziness still comes and goes but is possibly somewhat better, still has some right-sided pain including his elbow from where he fell, O2 did go down slightly when he was ambulating with PT but recovered and patient did not feel more short of breath than baseline. Not having chest pain, no significant cough Objective Data Objective Data Vital Signs: Vital Signs Temp Pulse Resp BP Pulse Ox O2 Del Method O2 Flow Rate 97.9 F 71 15 133/85 H 97 Room Air 2 04/28/23 10:44 04/28/23 10:44 04/28/23 10:44 04/28/23 10:44 04/28/23 10:44 04/28/23 10:44 04/28/23 05:00 Oxygen Flow Rate (L/min) 2 Oxygen Delivery Method Room Air Weight: 107.3 kg Body Mass Index (BMI) 33.9 Intake & Output: Intake and Output for Last 24 Hours 04/26/23 04/27/23 04/28/23 23:59 23:59 23:59 Intake Total 3211 / 3433 444 / 444 Output Total 650 / 1050 1100 / 1600 650 / 650 Balance -650 / -828 2111 / 1833 -206 / -206 Lab / Micro Data 04/28/23 06:55 04/28/23 06:55 Labs: Laboratory Results - last 24 hr 04/27/23 16:27: POC Glucose 163 H 04/27/23 21:16: POC Glucose 167 H 04/28/23 06:35: POC Glucose 135 H 04/28/23 06:55: WBC 9.8, RBC 3.55 L, Hgb 9.6 L, Hct 31.6 L, MCV 89.0, MCH 27.0, MCHC 30.4 L, RDW Std Deviation 53.2 H, RDW Coeff of Thao 16.4 H, Plt Count 278, MPV 9.2, Immature Gran % (Auto) 0.400, Neut % (Auto) 81.4 H, Lymph % (Auto) 4.4 L, [place] % (Auto) 11.9 H, Eos % (Auto) 1.4, Baso % (Auto) 0.5, Absolute Neuts (auto) 8.0 H, Absolute Lymphs (auto) 0.43 L, Nucleated RBC % 0, Differential Comment SCANNED, Sodium 141, Potassium 3.5, Chloride 110 H, Carbon Dioxide 27.0, Anion Gap 4 L, BUN 36 H, Creatinine 1.93 H, Estim Creat Clear Calc 46.18, Est GFR (MDRD) Af Amer 45 L, Est GFR (MDRD) Non-Af 37 L, BUN/Creatinine Ratio 18.7, Glucose 147 H, Calcium 10.5 H 04/28/23 11:11: POC Glucose 222 H Radiography Diagnostic Testing: Radiology Impression Chest X-Ray 04/28/23 11:00 IMPRESSION: No radiographic evidence of acute cardiopulmonary disease. Electronically Signed: Mahendra Blackman MD at 11:20 EST , Elbow X-Ray 04/28/23 11:00 IMPRESSION: No evidence of acute fracture. Soft tissue swelling posteriorly could reflect tendinitis. Electronically Signed: Mahendra Blackman MD at 11:43 EST , Physical Exam Narrative General: Alert, oriented, no apparent distress HEENT: Atraumatic, normocephalic Eyes: Anicteric, normal conjunctiva, extraocular movements grossly intact Neck: Supple Respiratory: Normal respiratory effort, faint crackles at left base Cardiovascular: Regular rate GI: Soft, nontender, nondistended Extremities: -Trace to 1+ peripheral edema Musculoskeletal: Moving all extremities Neuro: No overt focal neurological deficits Skin: Chronic changes in lower extremities Psych: Cooperative Assessment & Plan Assessment/Plan (1) Vertigo: (2) Fall: QUALIFIERS: Encounter type: initial encounter Qualified Code(s): W19.XXXA - Unspecified fall, initial encounter (3) Generalized weakness: (4) Ambulatory dysfunction: (5) Chest pain: QUALIFIERS: Chest pain type: unspecified Qualified Code(s): R07.9 - Chest pain, unspecified PLAN: Plan #Acute vertigo with mechanical fall and persistent Right-sided soreness in the setting of known vertigo and near syncope - Admit to CDU under observation status. Give Antivert prn for breakthrough vertigo symptoms. PT/OT and case management to consult and treat with help to find a rehabilitation center appreciated in advance. -04/27: Continue to work with PT/OT, may need vestibular rehab on discharge, was receiving IV fluids, is beginning to feel better -04/28: Holding IV fluids to avoid overload, patient does feel better than when he came in but still feels generally debilitated, Avenue excepted and pre-CERT started #Hypoxemia in setting of chronic asthma -Briefly dropped down to 87% when ambulating with PT and recovered, patient did not report increased shortness of breath from baseline, chest x-ray unremarkable, suspect this may be chronic in nature. Follows with pulmonology, will likely need walk test prior to discharge -Patient is all so net positive with fluids, his Lasix have been resumed -Albuterol as needed #OA; with chronic bilateral knee and back pain complicating #1 - Noted. Give Tylenol prn for [id number] (level 1-5/10) pain or fever. Give Morphine IV prn for severe (level 6-10/10) pain. -04/27: As needed pain medication, discussed that patient cannot be on this medication upon discharge and he verbalizes understanding -04/28: When patient fell he reports he hurt his right elbow, x-ray obtained of this which showed some soft tissue edema without fracture or dislocation, will provide supportive care 3. Generalized weakness with ambulatory dysfunction arising from #1 & #2 - Patient only to be gotten up with assistance due to increased fall risk. -04/28: Continue to work with PT/OT 4. Obesity; with BMI of 33.9 this admission plus FAVIAN adding to the pathology of #1 - #3 - Weight loss will be recommended. Check TSH. 5. CAD; s/p multiple stents already on Ranolazine with negative cardiac evaluation in the ER earlier today - Continue home regimen as previous with patient on Plavix and Ranolazine plus prn SL NTG. Recent echocardiogram done in 10/2022 noted with normal LVEF listed above. -04/27: Continue present medications 6. History of paroxysmal atrial fibrillation - Stable in NSR with full anticoagulation held due to increased risk of recurrent GI bleed. -04/27: Hemoglobin stable 7. History of GI bleed attributed to PUD - Noted. Avoid full-anticoagulation if possible to minimize risk of recurrent bleeding. -04/27: Hemoglobin stable 8. Essential hypertension - Resume home regimen as previous. 9. Hyperlipidemia - Continue statin. 10. DM-2; of unknown control - ADA diet. FSBS q. AC/HS plus SSI. Check HgbA1c to objectively evaluate quality of diabetic control. 11. History of secondary pulmonary hypertension - Noted. 12. History of DVT/PE - Noted. 13. Chronic diastolic CHF; with preserved LVEF - Stable. -04/27: Had received fluids, is getting little bit edematous, resume home Lasix 14. LVH - Noted. 15. History of Seizures - Stable with no evidence of recurrence. 16. CKD; stage III - Stable. 17. Chronic anemia - Stable. 18. History of MRSA - Noted. Place on contact precautions. 19. Depression with anxiety - Continue home regimen as previous. 20. DVT prophylaxis - SCD's only with reports of recent GI bleed. Time spent in the patient's overall evaluation,decision-making process, review of diagnostic data, adjustment of management, discussion with other providers, nursing nursing and ancillary staff involved in patient's care documentation, 35 minutes Charges/Coding Visit Charges Inpatient E&M: 66791 [facility] Hosp L2
--- NOTE | 2023-04-28 14:44 | CASEMGMT ---
Patient was approved to go to [facility]. PASRR completed in [employer] system. Plan: d/c to [facility] under skilled level of care on a PASRR as patient was observation status. Dipika FANG
--- NOTE | 2023-04-28 14:52 | CASEMGMT ---
Discharge Planning [facility]. Jennifer Stringer, Discharge Planning Asst.
--- NOTE | 2023-04-28 15:21 | CASEMGMT ---
Social Work Pt had informed admitting RN he does not have LW/POA, was given additional information. JARRETT Dumont
[2023-04-28 17:42] LABS: Bedside Glucose 174 mg/dL (74-106)
[2023-04-28 22:28] LABS: Bedside Glucose 177 mg/dL (74-106)
[2023-04-29] MEDS: oxyCODONE 5 MG Tablet PO ×2 (03:57→09:26)
[2023-04-29 04:00] VITALS: BP 155/87; PULSE 79; RESP 17; TEMP 36.6; O2SAT 96
[2023-04-29 06:00] VITALS: BMI 34.0
[2023-04-29] MEDS: Sucralfate 1 GM Tablet PO ×2 (06:25→11:39)
[2023-04-29 06:50] LABS: Bedside Glucose 127 mg/dL (74-106)
[2023-04-29 07:38] LABS: Absolute Lymphocyte Count 0.42 X10^3/uL (0.83-4.51); Absolute Neutrophil Count 7.7 X10^3/uL (2.0-7.7); Basophil# 0.04 X10^3/uL; Basophil% 0.4 % (0-1); Eosinophils% 1.1 % (0-5); Hematocrit 31.7 % (40-54); Lymphocyte # 0.42 X10^3/ul (0.83-4.51); Lymphocyte % 4.4 % (19-41); Mean Corp Hgb Conc 31.5 g/dL (32-36); Mean Corpuscular Hgb 27.9 pg (27.0-32.0); Mean Corpuscular Volume 88.5 fL (80-94); Mean Platelet Vol. 9.1 fl (6.2-12.0); Monocyte# 1.21 X10^3/uL; Monocyte% 12.8 % (0-10); NRBC Flagged by Analyzer 0 % (0-5); Neutrophil # 7.67 X10^3/uL (2.7-7.7); Neutrophil % 80.9 % (47-70); POSITIVE DIFFERENTIAL YES; Platelet Count 283 K/mm3 (150-450); RBC Distribution Width SD 52.2 fl (35.1-43.9); Red Blood Count 3.58 M/mm3 (4.6-6.2); White Blood Count 9.5 K/mm3 (4.4-11.0)
[2023-04-29 07:53] LABS: Anion Gap 5 (5-15); BUN 28 mg/dL (7-18); BUN/Creat Ratio 14.7 RATIO (10-20); Calcium,Total 10.4 mg/dL (8.5-10.1); Chloride 106 mmol/L (98-107); EST Glomerular Filtration Rate 38 mL/min (>60); Est Glom Filt Rate - Afr Amer 46 mL/min (>60); Estimated Creatinine Clearance 46.98 ml/min; Glucose 144 mg/dL (74-106); Potassium 3.3 mmol/L (3.5-5.1); Sodium Level 137 mmol/L (136-145)
[2023-04-29 08:11] LABS: Differential Indicated SCAN CRITERIA MET
[2023-04-29 09:25] VITALS: BP 138/90; PULSE 76; RESP 18; TEMP 37; O2SAT 97
[2023-04-29] MEDS: Potassium Chloride Oral Tablet 20 MEQ 40 MEQ PO (09:26)
[2023-04-29] MEDS: Potassium Chloride Oral Tablet 20 MEQ PO (09:26)
[2023-04-29 09:27] VITALS: PULSE 76
[2023-04-29] MEDS: Metoprolol(XL)Succ 50 MG Tablet PO (09:27)
[2023-04-29] MEDS: Cinacalcet HCl 30 MG Tablet PO (09:27)
[2023-04-29] MEDS: Paroxetine 20 MG Tablet 40 MG PO (09:27)
[2023-04-29] MEDS: Pantoprazole Sodium 40 MG Tablet PO (09:27)
[2023-04-29] MEDS: Losartan Potassium 25 MG Tablet PO (09:27)
[2023-04-29] MEDS: amLODIPine 10 MG Tablet PO (09:28)
[2023-04-29] MEDS: Furosemide 40 MG Tablet PO (09:28)
[2023-04-29] MEDS: Ranolazine 500 MG Tablet PO (09:28)
[2023-04-29] MEDS: Clopidogrel Bisulfate 75 MG Tablet PO (09:28)
[2023-04-29] MEDS: Ferrous Sulfate 325 MG Tablet PO (09:28)
[2023-04-29] MEDS: Fenofibrate 145 MG Tablet PO (09:29)
[2023-04-29] MEDS: Ergocalciferol 1.25 MG (50, 000 UNIT) Capsule PO (09:29)
[2023-04-29 10:38] LABS: Differential Comment SCANNED
[2023-04-29] MEDS: Insulin Lispro 100 UNIT/ML INSULN.PEN SC (11:39)
[2023-04-29 11:58] LABS: Bedside Glucose 164 mg/dL (74-106)
--- NOTE | 2023-04-29 12:17 | PCM.TXEXTCAR ---
Diet Diet Order/Speech Therapy: 04/26/23 23:35 Diet: Consistent Carb - Calorie Controlled Food consistency:: Regular Liquid Consistency:: Regular/Thin How many daily calories?: 1800 calorie Routine Orders/Code Status Suppository Type: Dulcolax 10mg Suppository Frequency: Daily PRN O2 Liters per Minute: 2 O2 Frequency: PRN (May need on ambulation) Keep PO Greater than or Equal to (%): 88 Routine Lab Work: BMP (2-3 days) Code Status: Full Code Therapies Physical Therapy: Eval and Treat Occupational Therapy: Eval and Treat Problem/Diagnosis (1) Vertigo: Status: Acute Code(s): R42 - Dizziness and giddiness (2) Fall: Status: Acute Code(s): W19.XXXA - Unspecified fall, initial encounter (3) Generalized weakness: Status: Acute Code(s): R53.1 - Weakness (4) Ambulatory dysfunction: Status: Acute Code(s): R26.2 - Difficulty in walking, not elsewhere classified (5) Chest pain: Status: Acute Code(s): R07.9 - Chest pain, unspecified Plan #Acute vertigo with mechanical fall and persistent Right-sided soreness in the setting of known vertigo #Hypoxemia in setting of chronic asthma #OA; with chronic bilateral knee and back pain 3. Generalized weakness with ambulatory dysfunction 4. Obesity 5. CAD; s/p multiple stents 6. History of paroxysmal atrial fibrillation 7. History of GI bleed attributed to PUD 8. Essential hypertension 9. Hyperlipidemia 10. DM-2 11. History of secondary pulmonary hypertension 12. History of DVT/PE 13. Chronic diastolic CHF; with preserved LVEF 14. LVH 15. History of Seizures 16. CKD; stage III 17. Chronic anemia 18. History of MRSA 19. Depression with anxiety ELIANE KAY, is a 67 with a past medical history of essential hypertension, hyperlipidemia, DM-2; of unknown control, obesity; with BMI of 33 this admission, FAVIAN, history of secondary pulmonary hypertension, history of DVT/PE, CAD; s/p multiple stents already on Ranolazine, history of paroxysmal atrial fibrillation, chronic diastolic CHF; with preserved LVEF, LVH, history of Seizures, CKD; stage III, chronic anemia, history of MRSA, history of near syncope, history of vertigo, depression with anxiety, OA; with chronic bilateral knee and back pain and history of GI bleed attributed to PUD who presents to [facility] ER 04/26/2023 complaining of chest pain and fall. He had initially gone to the ED earlier in the day due to some intermittent chest pain and fluttering feeling, cardiac workup was negative and he was sent home after he was ambulated and did well. When patient was dropped at home by the taxi however he quickly looked to the side and he became dizzy and after taking a few steps fell onto his right side striking his shoulder, ribs, knee and leg in the snow for 20 to 30 minutes until neighbor came out to help him. Denies loss of consciousness or head trauma with fall. Symptoms are most consistent with vertigo. He worked with physical therapy and was found that he had further therapy needs so referral [facility] During his hospitalization aside from pain from his fall he reported that he was not having the fluttering feeling in his chest anymore or other similar concerns but overall he was feeling better though occasionally still dizzy especially when turning his head and still somewhat overall weak. Did briefly drop down to 87% when ambulating with PT but had not felt short of breath, does have chronic asthma and follows with pulmonology. He was started on fluids when he first arrived and his Lasix were held, suspect this may have been the culprit as he had no further documented episodes after his Lasix were resumed. Due to his blood sugars being low 100s he was not receiving his Humulin U-500 and it was revealed that at home he was inconsistently taking this due to hypoglycemia, would suggest this is stopped and glucose checks daily continued as he may need it restarted in the future however given falls and low glucose concern the hypoglycemia is more dangerous for him at this time than slight hyperglycemia. Patient was monitored on telemetry during this hospitalization, occasionally would have short 1 to 2-second pauses but these did not seem to associate with any of his symptoms, beta-robinson decreased and given that with reported history of dizziness as well as the fluttering sensation stressed prior to admission we will also give prescription for event monitor to make sure there are no arrhythmias or other associations with any of his symptoms. On day of discharge patient felt ready to go to rehab, main concern was still receiving pain medication for his elbow and pain from falls, short course prescription printed. Given his main complaint was his elbow this was x-rayed which showed some soft tissue swelling with no dislocation or break. Continue supportive care. DISCHARGE INSTRUCTIONS PLEASE READ *Please take this with you to your next doctors appointment* -Your blood glucose has been well-controlled off of your Humulin U-500 so would advise continue to hold this but would benefit from daily blood sugar checks in the event any insulin needs to be restarted -Your metoprolol has been decreased to 25 mg twice daily and it is recommended that you be discharged with instructions for an event monitor due to episodes of dizziness to see if there are any associated heart causes -You may benefit from vestibular rehab in the future given your symptoms of vertigo -Weigh yourself every day. A sudden weight gain can mean you are retaining fluid. Weigh yourself at the same time of day and in the same kind of clothes. Ideally, weigh yourself first thing in the morning after you empty your bladder, but before you eat breakfast. -Please call your physician if your weight goes up by more than 2 pounds in 1 day or 5 pounds in 1 week. This can be a sign that you are retaining more fluid than you should be. -Would recommend lab work (BMP) to check your potassium in 2 to 3 days through your primary care physician's office. Please call their office upon discharge to obtain order for lab work. -Given your fall and pain you have been discharged with a short course of as needed pain medication -Please call your primary care provider's office upon discharge to schedule a hospital follow up within 1 week. -For any concerning signs or symptoms please call 911 or proceed to the nearest emergency department Allergies/Procedures Done in Hospital Allergies No Known Allergies Allergy (Verified 04/26/23 19:23) Type of Care/Length of Stay Estimated LOS: Convalescent Care Less Than 30 days Type of Care Needed: Skilled Rehab Potential: Fair Prognosis: Fair Additional Orders/Day of Discharge Day of Discharge: 04/29/23 Discharge Plan Admission Admit Date/Time: 04/26/23 23:23 Primary Reason for Your Visit: Chest pain and fall Attending Provider: Kassidy Velez Primary Care Provider: Mery Raymond Consulting Providers: Ryan Noel Instructions Patient Instructions: ED Fall Prevention Additional Instructions / Restrictions: DISCHARGE INSTRUCTIONS PLEASE READ *Please take this with you to your next doctors appointment* -Your blood glucose has been well-controlled off of your Humulin U-500 so would advise continue to hold this but would benefit from daily blood sugar checks in the event any insulin needs to be restarted -Your metoprolol has been decreased to 25 mg twice daily and it is recommended that you be discharged with instructions for an event monitor due to episodes of dizziness to see if there are any associated heart causes -You may benefit from vestibular rehab in the future given your symptoms of vertigo -Weigh yourself every day. A sudden weight gain can mean you are retaining fluid. Weigh yourself at the same time of day and in the same kind of clothes. Ideally, weigh yourself first thing in the morning after you empty your bladder, but before you eat breakfast. -Please call your physician if your weight goes up by more than 2 pounds in 1 day or 5 pounds in 1 week. This can be a sign that you are retaining more fluid than you should be. -Would recommend lab work (BMP) to check your potassium in 2 to 3 days through your primary care physician's office. Please call their office upon discharge to obtain order for lab work. -Given your fall and pain you have been discharged with a short course of as needed pain medication -Please call your primary care provider's office upon discharge to schedule a hospital follow up within 1 week. -For any concerning signs or symptoms please call 911 or proceed to the nearest emergency department Discharge Orders/Prescriptions Prescriptions: New oxycodone 5 mg Tablet 5 mg PO Q4H PRN PRN (Reason: Pain Score 6-10) 3 Days Qty: 20 0RF Continued (DME) Handicap Placard See Rx Instructions .ROUTE .MEDSUPPLY Qty: 1 0RF Rx Instructions: As directed, length of time 3 years (DME) FreeStyle Tiffanie 2 [facility] See Rx Instructions .ROUTE .MEDSUPPLY Qty: 1 0RF Rx Instructions: As directed ferrous sulfate 325 mg (65 mg iron) tablet 325 mg PO DAILY Qty: 90 1RF (DME) OneTouch Verio test strips Strip See Rx Instructions .ROUTE .MEDSUPPLY Qty: 100 12RF Rx Instructions: test 3 times daily cinacalcet 30 mg tablet 30 mg PO BID Qty: 60 8RF furosemide 40 mg tablet 40 mg PO DAILY nitroglycerin 0.4 mg tablet, sublingual 0.4 mg sublingual Q5M PRN (Reason: chest pain) Rx Instructions: do not exceed 3 doses per episode albuterol sulfate 90 mcg/actuation HFA aerosol inhaler 2 puff inhalation Q6H PRN (Reason: shortness of breath or wheezing) paroxetine HCl 40 mg tablet 40 mg PO DAILY potassium chloride 20 mEq tablet extended release 20 meq PO DAILY amlodipine 5 mg tablet 10 mg PO DAILY (DME) compress.stocking,knee,reg,lrg Misc See Rx Instructions .ROUTE .MEDSUPPLY Qty: 2 0RF Rx Instructions: Apply first thing in AM before ambulation (DME) [email or web address] Tiffanie 2 Sensor Kit See Rx Instructions .ROUTE .MEDSUPPLY Qty: 2 6RF Rx Instructions: As directed sucralfate 1 gram Tablet 1 g PO 1HR_ACHS Qty: 1 0RF Ozempic 1 mg/dose (4 mg/3 mL) pen injector 1 mg SUBCUT QWEEK Patient Comments: INJECT 1MG (0.75ML) SUBCUTANEOUSLY EVERY WEEK pantoprazole 40 mg Tablet,Delayed Release (Dr/Ec) 40 mg PO BID Qty: 60 2RF Rx Instructions: Take 40 mg twice daily for 8 weeks then decrease dose to 40 mg daily (DME) pen needle, diabetic [BD Ultra-Fine Lorie Pen Needle] 32 gauge x 5/32 needle See Rx Instructions .ROUTE .MEDSUPPLY Qty: 360 5RF Rx Instructions: 4x/day cholecalciferol (vitamin D3) 1,250 mcg (50,000 unit) capsule 1,250 mcg PO QWEEK Qty: 8 6RF Hold Instructions: Ordered clopidogrel 75 mg tablet 75 mg PO DAILY Qty: 90 3RF fenofibrate micronized 200 mg capsule 200 mg PO DAILY Qty: 30 12RF losartan 25 mg tablet 25 mg PO DAILY Qty: 90 3RF Hold Instructions: until you see nephrology ranolazine 500 mg tablet extended release 12 hr 500 mg PO BID Qty: 180 3RF Changed metoprolol succinate 50 mg tablet extended release 24 hr 25 mg PO Q12H Qty: 30 0RF Patient Comments: TAKE 1 TABLET BY MOUTH TWICE DAILY FOR BLOOD PRESSURE Discontinued Humulin R U-500 (Conc) Kwikpen 500 unit/mL (3 mL) insulin pen 30 unit SUBCUT TIDCM Patient Comments: inject 30 units subcutaneously three times a day; has been taking 20 units d/t decreasing sugar too much Other Ambulatory Orders: 14 Day Event Recorder Preventi (Urgent) Timeframe: 1 Day Facility: [facility] - Location: Cardiovascular Services Ordered By: Dr. Kassidy Velez Referrals / Follow Up: Mery Raymond MD [Primary Care Provider] - Within 1 Week Disposition Disposition (needs filled in before D/C Order can be placed): [facility] Facility (2) Fall Qualifiers: Encounter type: initial encounter Qualified Code(s): W19.XXXA - Unspecified fall, initial encounter (5) Chest pain Qualifiers: Chest pain type: unspecified Qualified Code(s): R07.9 - Chest pain, unspecified
--- NOTE | 2023-04-29 12:28 | PCM.DC.SUM ---
Providers Date of Admission: 04/26/23 Date of Discharge: 04/29/23 Primary Care Physician: Dr. Mery Raymond MD Reason For Visit: VERTIGO WITH FALLS Diagnosis Discharge Diagnosis (1) Vertigo: Status: Acute Code(s): R42 - Dizziness and giddiness (2) Fall: Status: Acute Code(s): W19.XXXA - Unspecified fall, initial encounter Qualifiers: Encounter type: initial encounter Qualified Code(s): W19.XXXA - Unspecified fall, initial encounter (3) Generalized weakness: Status: Acute Code(s): R53.1 - Weakness (4) Ambulatory dysfunction: Status: Acute Code(s): R26.2 - Difficulty in walking, not elsewhere classified (5) Chest pain: Status: Acute Code(s): R07.9 - Chest pain, unspecified Qualifiers: Chest pain type: unspecified Qualified Code(s): R07.9 - Chest pain, unspecified Plan #Acute vertigo with mechanical fall and persistent Right-sided soreness in the setting of known vertigo #Hypoxemia in setting of chronic asthma #OA; with chronic bilateral knee and back pain 3. Generalized weakness with ambulatory dysfunction 4. Obesity 5. CAD; s/p multiple stents 6. History of paroxysmal atrial fibrillation 7. History of GI bleed attributed to PUD 8. Essential hypertension 9. Hyperlipidemia 10. DM-2 11. History of secondary pulmonary hypertension 12. History of DVT/PE 13. Chronic diastolic CHF; with preserved LVEF 14. LVH 15. History of Seizures 16. CKD; stage III 17. Chronic anemia 18. History of MRSA 19. Depression with anxiety Medications at Discharge Home Medications Handicap Placard #1 ea 04/08/20 flash glucose scanning reader (FreeStyle Tiffanie 2 [place]) #1 ea 02/16/21 pen needle, diabetic 32 gauge x /32 (BD Ultra-Fine Lorie Pen Needle) #360 ea 04/08/22 ferrous sulfate 325 mg (65 mg iron) tablet 325 mg PO DAILY supplement #90 tabs 08/18/22 cholecalciferol (vitamin D3) 1,250 mcg (50,000 unit) capsule 1,250 mcg PO QWEEK supplement #8 caps 09/07/22 clopidogrel 75 mg tablet 75 mg PO DAILY BLOOD THINNER #90 tabs 10/03/22 fenofibrate micronized 200 mg capsule 200 mg PO DAILY cholesterol #30 caps 10/20/22 losartan 25 mg tablet 25 mg PO DAILY blood pressure #90 tabs 12/08/22 ranolazine 500 mg tablet,extended release,12 hr 500 mg PO BID chest pain #180 tabs 12/20/22 pantoprazole 40 mg tablet,delayed release 40 mg PO BID Stomach #60 tabs 03/03/23 blood sugar diagnostic ([employer] Verio test strips) #100 ea 03/07/23 cinacalcet 30 mg tablet 30 mg PO BID hypercalcemia #60 tabs 03/07/23 sucralfate 1 gram tablet 1 g PO 1HR_ACHS stomach #1 TAB 03/18/23 albuterol sulfate 90 mcg/actuation aerosol inhaler 2 puff inhalation Q6H PRN shortness of breath or wheezing 04/14/23 amlodipine 5 mg tablet 10 mg PO DAILY blood pressure 04/14/23 furosemide 40 mg tablet 40 mg PO DAILY water pill 04/14/23 nitroglycerin 0.4 mg sublingual tablet 0.4 mg sublingual Q5M PRN chest pain 04/14/23 paroxetine HCl 40 mg tablet 40 mg PO DAILY mood 04/14/23 potassium chloride 20 mEq tablet,extended release 20 meq PO DAILY supplement 04/14/23 compress.stocking,knee,reg,lrg #2 ea 04/15/23 flash glucose sensor (FreeStyle Tiffanie 2 Sensor kit) #2 ea 04/15/23 semaglutide 1 mg/dose (4 mg/3 mL) subcutaneous pen injector (Ozempic) 1 mg subcut QWEEK 04/26/23 metoprolol succinate 50 mg tablet,extended release 24 hr 25 mg (1/2 x 50 mg) PO Q12H blood pressure #30 tabs 04/29/23 oxycodone 5 mg tablet 5 mg PO Q4H PRN PRN Pain Score 6-10 3 days #20 tabs 04/29/23 Hospital Course Summary of Care Provided Minutes Spent on Discharge: 32 Hospital Course: ELIANE KAY, is a 67 with a past medical history of essential hypertension, hyperlipidemia, DM-2; of unknown control, obesity; with BMI of 33 this admission, FAVIAN, history of secondary pulmonary hypertension, history of DVT/PE, CAD; s/p multiple stents already on Ranolazine, history of paroxysmal atrial fibrillation, chronic diastolic CHF; with preserved LVEF, LVH, history of Seizures, CKD; stage III, chronic anemia, history of MRSA, history of near syncope, history of vertigo, depression with anxiety, OA; with chronic bilateral knee and back pain and history of GI bleed attributed to PUD who presents to [facility] ER 04/26/2023 complaining of chest pain and fall. He had initially gone to the ED earlier in the day due to some intermittent chest pain and fluttering feeling, cardiac workup was negative and he was sent home after he was ambulated and did well. When patient was dropped at home by the taxi however he quickly looked to the side and he became dizzy and after taking a few steps fell onto his right side striking his shoulder, ribs, knee and leg in the snow for 20 to 30 minutes until neighbor came out to help him. Denies loss of consciousness or head trauma with fall. Symptoms are most consistent with vertigo. He worked with physical therapy and was found that he had further therapy needs so [facility] During his hospitalization aside from pain from his fall he reported that he was not having the fluttering feeling in his chest anymore or other similar concerns but overall he was feeling better though occasionally still dizzy especially when turning his head and still somewhat overall weak. Did briefly drop down to 87% when ambulating with PT but had not felt short of breath, does have chronic asthma and follows with pulmonology. He was started on fluids when he first arrived and his Lasix were held, suspect this may have been the culprit as he had no further documented episodes after his Lasix were resumed. Due to his blood sugars being low 100s he was not receiving his Humulin U-500 and it was revealed that at home he was inconsistently taking this due to hypoglycemia, would suggest this is stopped and glucose checks daily continued as he may need it restarted in the future however given falls and low glucose concern the hypoglycemia is more dangerous for him at this time than slight hyperglycemia. Patient was monitored on telemetry during this hospitalization, occasionally would have short 1 to 2-second pauses but these did not seem to associate with any of his symptoms, beta-robinson decreased and given that with reported history of dizziness as well as the fluttering sensation stressed prior to admission we will also give prescription for event monitor to make sure there are no arrhythmias or other associations with any of his symptoms. On day of discharge patient felt ready to go to rehab, main concern was still receiving pain medication for his elbow and pain from falls, short course prescription printed. Given his main complaint was his elbow this was x-rayed which showed some soft tissue swelling with no dislocation or break. Continue supportive care. DISCHARGE INSTRUCTIONS PLEASE READ *Please take this with you to your next doctors appointment* -Your blood glucose has been well-controlled off of your Humulin U-500 so would advise continue to hold this but would benefit from daily blood sugar checks in the event any insulin needs to be restarted -Your metoprolol has been decreased to 25 mg twice daily and it is recommended that you be discharged with instructions for an event monitor due to episodes of dizziness to see if there are any associated heart causes -You may benefit from vestibular rehab in the future given your symptoms of vertigo -Weigh yourself every day. A sudden weight gain can mean you are retaining fluid. Weigh yourself at the same time of day and in the same kind of clothes. Ideally, weigh yourself first thing in the morning after you empty your bladder, but before you eat breakfast. -Please call your physician if your weight goes up by more than 2 pounds in 1 day or 5 pounds in 1 week. This can be a sign that you are retaining more fluid than you should be. -Would recommend lab work (BMP) to check your potassium in 2 to 3 days through your primary care physician's office. Please call their office upon discharge to obtain order for lab work. -Given your fall and pain you have been discharged with a short course of as needed pain medication -Please call your primary care provider's office upon discharge to schedule a hospital follow up within 1 week. -For any concerning signs or symptoms please call 911 or proceed to the nearest emergency department Physical Exam Narrative General: Alert, oriented, no apparent distress HEENT: Atraumatic, normocephalic Eyes: Anicteric, normal conjunctiva, extraocular movements grossly intact Neck: Supple Respiratory: Normal respiratory effort, no significant rhonchi or wheezes Cardiovascular: Regular rate GI: Soft, nontender, nondistended Extremities: Trace peripheral edema Musculoskeletal: Moving all extremities Neuro: No overt focal neurological deficits Skin: Chronic changes in lower extremities Psych: Cooperative Weight / BMI Weight Weight: 107.637 kg Body Mass Index (BMI) 34.0 ABG / Lab / Microbiology Data 04/29/23 07:15 04/29/23 07:15 Laboratory: Laboratory Results - last 24 hr 04/28/23 16:19: POC Glucose 174 H 04/28/23 21:55: POC Glucose 177 H 04/29/23 06:22: POC Glucose 127 H 04/29/23 07:15: WBC 9.5, RBC 3.58 L, Hgb 10.0 L, Hct 31.7 L, MCV 88.5, MCH 27.9, MCHC 31.5 L, RDW Std Deviation 52.2 H, RDW Coeff of Thao 16.0 H, Plt Count 283, MPV 9.1, Immature Gran % (Auto) 0.400, Neut % (Auto) 80.9 H, Lymph % (Auto) 4.4 L, Davis % (Auto) 12.8 H, Eos % (Auto) 1.1, Baso % (Auto) 0.4, Absolute Neuts (auto) 7.7, Absolute Lymphs (auto) 0.42 L, Nucleated RBC % 0, Differential Comment SCANNED, Sodium 137, Potassium 3.3 L, Chloride 106, Carbon Dioxide 26.0, Anion Gap 5, BUN 28 H, Creatinine 1.90 H, Estim Creat Clear Calc 46.98, Est GFR (MDRD) Af Amer 46 L, Est GFR (MDRD) Non-Af 38 L, BUN/Creatinine Ratio 14.7, Glucose 144 H, Calcium 10.4 H 04/29/23 11:38: POC Glucose 164 H D/C Instructions Discharge Diet: - (DASH diet) Discharge Activity: - (PT/OT evaluate and treat) Meaningful Use Info Meaningful Use Diagnoses (Choose all that apply): None applicable Discharge Plan Admission Admit Date/Time: 04/26/23 23:23 Primary Reason for Your Visit: Chest pain and fall Attending Provider: Kassidy Velez Primary Care Provider: Mery Raymond Consulting Providers: Ryan Noel Instructions Patient Instructions: ED Fall Prevention Additional Instructions / Restrictions: DISCHARGE INSTRUCTIONS PLEASE READ *Please take this with you to your next doctors appointment* -Your blood glucose has been well-controlled off of your Humulin U-500 so would advise continue to hold this but would benefit from daily blood sugar checks in the event any insulin needs to be restarted -Your metoprolol has been decreased to 25 mg twice daily and it is recommended that you be discharged with instructions for an event monitor due to episodes of dizziness to see if there are any associated heart causes -You may benefit from vestibular rehab in the future given your symptoms of vertigo -Weigh yourself every day. A sudden weight gain can mean you are retaining fluid. Weigh yourself at the same time of day and in the same kind of clothes. Ideally, weigh yourself first thing in the morning after you empty your bladder, but before you eat breakfast. -Please call your physician if your weight goes up by more than 2 pounds in 1 day or 5 pounds in 1 week. This can be a sign that you are retaining more fluid than you should be. -Would recommend lab work (BMP) to check your potassium in 2 to 3 days through your primary care physician's office. Please call their office upon discharge to obtain order for lab work. -Given your fall and pain you have been discharged with a short course of as needed pain medication -Please call your primary care provider's office upon discharge to schedule a hospital follow up within 1 week. -For any concerning signs or symptoms please call 911 or proceed to the nearest emergency department Discharge Orders/Prescriptions Prescriptions: New oxycodone 5 mg Tablet 5 mg PO Q4H PRN PRN (Reason: Pain Score 6-10) 3 Days Qty: 20 0RF Continued (DME) Handicap Placard See Rx Instructions .ROUTE .MEDSUPPLY Qty: 1 0RF Rx Instructions: As directed, length of time 3 years (DME) FreeStyle Tiffanie 2 [place] [facility] [place] Rx Instructions .ROUTE .MEDSUPPLY Qty: 1 0RF Rx Instructions: As directed ferrous sulfate 325 mg (65 mg iron) tablet 325 mg PO DAILY Qty: 90 1RF (DME) OneTouch Verio test strips Strip See Rx Instructions .ROUTE .MEDSUPPLY Qty: 100 12RF Rx Instructions: test 3 times daily cinacalcet 30 mg tablet 30 mg PO BID Qty: 60 8RF furosemide 40 mg tablet 40 mg PO DAILY nitroglycerin 0.4 mg tablet, sublingual 0.4 mg sublingual Q5M PRN (Reason: chest pain) Rx Instructions: do not exceed 3 doses per episode albuterol sulfate 90 mcg/actuation HFA aerosol inhaler 2 puff inhalation Q6H PRN (Reason: shortness of breath or wheezing) paroxetine HCl 40 mg tablet 40 mg PO DAILY potassium chloride 20 mEq tablet extended release 20 meq PO DAILY amlodipine 5 mg tablet 10 mg PO DAILY (DME) compress.stocking,knee,reg,lrg Misc See Rx Instructions .ROUTE .MEDSUPPLY Qty: 2 0RF Rx Instructions: Apply first thing in AM before ambulation (DME) FreeStyle Tiffanie 2 Sensor Kit See Rx Instructions .ROUTE .MEDSUPPLY Qty: 2 6RF Rx Instructions: As directed sucralfate 1 gram Tablet 1 g PO 1HR_ACHS Qty: 1 0RF Ozempic 1 mg/dose (4 mg/3 mL) pen injector 1 mg SUBCUT QWEEK Patient Comments: INJECT 1MG (0.75ML) SUBCUTANEOUSLY EVERY WEEK pantoprazole 40 mg Tablet,Delayed Release (Dr/Ec) 40 mg PO BID Qty: 60 2RF Rx Instructions: Take 40 mg twice daily for 8 weeks then decrease dose to 40 mg daily (DME) pen needle, diabetic [BD Ultra-Fine Lorie Pen Needle] 32 gauge x 5/32 needle See Rx Instructions .ROUTE .MEDSUPPLY Qty: 360 5RF Rx Instructions: 4x/day cholecalciferol (vitamin D3) 1,250 mcg (50,000 unit) capsule 1,250 mcg PO QWEEK Qty: 8 6RF Hold Instructions: Ordered clopidogrel 75 mg tablet 75 mg PO DAILY Qty: 90 3RF fenofibrate micronized 200 mg capsule 200 mg PO DAILY Qty: 30 12RF losartan 25 mg tablet 25 mg PO DAILY Qty: 90 3RF Hold Instructions: until you see nephrology ranolazine 500 mg tablet extended release 12 hr 500 mg PO BID Qty: 180 3RF Changed metoprolol succinate 50 mg tablet extended release 24 hr 25 mg PO Q12H Qty: 30 0RF Patient Comments: TAKE 1 TABLET BY MOUTH TWICE DAILY FOR BLOOD PRESSURE Discontinued Humulin R U-500 (Conc) Kwikpen 500 unit/mL (3 mL) insulin pen 30 unit SUBCUT TIDCM Patient Comments: inject 30 units subcutaneously three times a day; has been taking 20 units d/t decreasing sugar too much Other Ambulatory Orders: 14 Day Event Recorder Preventi (Urgent) Timeframe: 1 Day Facility: [facility] - Location: Cardiovascular Services Ordered By: Dr. Kassidy Velez Referrals / Follow Up: Mery Raymond MD [Primary Care Provider] - Within 1 Week Disposition Disposition (needs filled in before D/C Order can be placed): [facility] Facility Charges/Coding Visit Charges Inpatient E&M: 26066 Disch Hosp >30min
--- NOTE | 2023-04-29 12:52 | NURSING ---
Called report to [facility]
[2023-04-29 13:04] VITALS: BP 142/88; PULSE 86; RESP 18; TEMP 36.9; O2SAT 97
== END 2023-04-29 13:17 | disposition skilled nursing facility (03) ==
LOC: ED 22:13 → PCU 04-27 02:18
PROVIDERS: Admitting Provider Internal Medicine; Emergency Provider Emergency Medicine; PCP Internal Medicine; Visit Provider Internal Medicine
DX: R07.9 Chest pain, unspecified (principal); I50.32 Chronic diastolic (congestive) heart failure; I13.0 Hypertensive heart and chronic kidney disease with heart failure and stage 1 through stage 4 chronic kidney disease, or unspecified chronic kidney disease; I27.21 Secondary pulmonary arterial hypertension; E11.22 Type 2 diabetes mellitus with diabetic chronic kidney disease; I48.0 Paroxysmal atrial fibrillation; Z79.4 Long term (current) use of insulin; N18.32 Chronic kidney disease, stage 3b; E66.9 Obesity, unspecified; Z79.02 Long term (current) use of antithrombotics/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; E78.00 Pure hypercholesterolemia, unspecified; R53.1 Weakness; Z68.33 Body mass index [BMI] 33.0-33.9, adult; I25.10 Atherosclerotic heart disease of native coronary artery without angina pectoris; R26.2 Difficulty in walking, not elsewhere classified; R25.1 Tremor, unspecified; Z95.5 Presence of coronary angioplasty implant and graft; J45.909 Unspecified asthma, uncomplicated; R06.00 Dyspnea, unspecified; Z79.899 Other long term (current) drug therapy; Z87.891 Personal history of nicotine dependence; R42 Dizziness and giddiness; Z86.711 Personal history of pulmonary embolism; Z86.718 Personal history of other venous thrombosis and embolism; F41.8 Other specified anxiety disorders; M54.9 Dorsalgia, unspecified; W19.XXXD Unspecified fall, subsequent encounter
CPT/HCPCS: 36415; 70450; 71045; 71101; 73030; 73070; 73564; 80048; 80053; 82962; 83735; 84100; 84443; 84484; 85025; 85379; 93005; 96361; 96374; 96375; 96376; 97162; 97166; 97530; 99221; 99285; J7120; A4216; G0378; J2405

== ENCOUNTER → 2023-05-31 | Outpatient (CLI) | payer MEDICARE, SELFPAY ==
[2023-03-13 16:01] VITALS: BMI 43.3
--- OUTSIDE RECORDS SUMMARY | 2023-05-31 10:35 | XMS RPT_ITS | CCD ---
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 / Z79.4(ICD-10) Onset: [...] Unclassified (1 source) Athscl heart disease of [place] coronary artery w/o ang pctrs / I25.10(ICD-10) [...] / Z68.41(ICD-10) Onset: 11-07-2017 Unclassified (1 source) [facility]entiary (current) use of antithrombotics/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 / Z79.02(ICD-10) [...] Provider Facility Start: 01-02-2018 Patient encounter AIMEE [place]VIS [place] Facility:[id number] Start: 11-21-2017 Patient encounter AIMEE PURVIS [place] Facility:[id number] Start: 11-14-2017 Patient encounter AIMEECHOCO Mcpherson Facility:[id number] Start: 11-06-2017 End: 11-07-2017 Evaluation and management of inpatient AIMEE SOOD Facility:[facility] Start: 10-25-2017 Patient encounter AIMEECHOCO Mcpherson Facility:[facility] Start: 10-10-2017 Patient encounter AIMEE Mcpherson Facility:[id number] Start: 08-22-2017 Patient encounter AIMEE Mcpherson Facility:[id number] Start: 08-07-2017 End: 08-07-2017 Patient encounter AIMEE SOOD Facility:[facility] Start: 08-07-2017 Patient encounter Liam Susanmariana Alfred Facility:[facility] Start: 07-31-2017 Patient encounter AIMEECHOCO Mcpherson Facility:[facility] Start: 06-15-2017 End: 06-15-2017 Patient encounter Jeane Beth Facility:[facility] Start: 06-15-2017 Emergency department visit limited/minor prob AIMEE SOOD [facility] Start: 06-15-2017 End: 06-15-2017 Patient encounter AIMEE SOOD Facility:[facility] Start: 06-12-2017 Patient encounter AIMEE Say Mcpherson Facility:[facility] Start: 06-12-2017 Patient encounter AIMEE Mcpherson Facility:[facility] Procedures Date Procedure Procedure Detail [...] SOOD Payers Date Payer Category Payer Medicare [id number] Unknown [id number] Summary Purpose Family History No Family History Records FoundNo Family History Records Found Advance Directives No Advanced Directives Records FoundNo Advanced Directives Records Found Additional Source Comments (unrecognized sect ion and content) No Status Records FoundNo Status Records Found INFORMATION SOURCE (unrecogn ized section and content) DATE CREATED AUTHOR [facility] [place] 01/31/2018 [facility] FOR RECORDS PERTAINING TO PATIENTS WHO ARE [...] BASED ON THE PRIMARY CLINICAL RECORDS. [facility]. provides no warranty or guarantee of the accuracy or completeness of information in this document.
[2023-05-31 12:39] LABS: Absolute Lymphocyte Count 0.43 X10^3/uL (0.83-4.51); Absolute Neutrophil Count 7.9 X10^3/uL (2.0-7.7); Basophil# 0.04 X10^3/uL; Basophil% 0.4 % (0-1); Eosinophil# 0.16 X10^3/uL; Eosinophils% 1.7 % (0-5); Hematocrit 36.5 % (40-54); Lymphocyte # 0.43 X10^3/ul (0.83-4.51); Lymphocyte % 4.5 % (19-41); Mean Corp Hgb Conc 30.1 g/dL (32-36); Mean Corpuscular Hgb 26.4 pg (27.0-32.0); Mean Corpuscular Volume 87.7 fL (80-94); Mean Platelet Vol. 10.1 fl (6.2-12.0); Monocyte# 0.89 X10^3/uL; Monocyte% 9.4 % (0-10); NRBC Flagged by Analyzer 0 % (0-5); Neutrophil # 7.91 X10^3/uL (2.7-7.7); Neutrophil % 83.5 % (47-70); POSITIVE DIFFERENTIAL YES; Platelet Count 334 K/mm3 (150-450); RBC Distribution Width CV 16.8 % (11.6-14.6); RBC Distribution Width SD 53.6 fl (35.1-43.9); Red Blood Count 4.16 M/mm3 (4.6-6.2); White Blood Count 9.5 K/mm3 (4.4-11.0)
[2023-05-31 13:17] LABS: ALB/GLOB Ratio 1.1 RATIO (0.9-2.4); AST(SGOT) 17 U/L (15-37); Alanine Aminotransfer ALT/SGPT 27 U/L (16-61); Albumin, Serum 3.7 g/dL (3.2-5.0); Alkaline Phosphatase 67 U/L (45-117); Anion Gap 4 (5-15); BUN 27 mg/dL (7-18); BUN/Creat Ratio 14.3 RATIO (10-20); Calcium,Total 10.5 mg/dL (8.5-10.1); Chloride 111 mmol/L (98-107); Creatinine, Serum 1.89 mg/dL (0.70-1.30); EST Glomerular Filtration Rate 38 mL/min (>60); Est Glom Filt Rate - Afr Amer 46 mL/min (>60); Globulin 3.5 g/dL (2.2-4.2); Glucose 191 mg/dL (74-106); Potassium 3.8 mmol/L (3.5-5.1); Protein, Total 7.2 g/dL (6.4-8.2); Sodium Level 142 mmol/L (136-145)
[2023-06-01 16:10] LABS: Hemoglobin A1c 6.8 % (3.8-5.6)
== END | disposition home or self-care (01) ==
LOC: BIMLAB 09:59
PROVIDERS: PCP Internal Medicine; Referring Provider Physician Assistant; Visit Provider Physician Assistant
DX: K92.2 Gastrointestinal hemorrhage, unspecified (principal); E11.65 Type 2 diabetes mellitus with hyperglycemia; Z79.4 Long term (current) use of insulin; N28.9 Disorder of kidney and ureter, unspecified
CPT/HCPCS: 36415; 80053; 83036; 85025

== ENCOUNTER 2023-06-07 03:20 | Observation (INO) | payer MEDICARE, SELFPAY ==
[2023-03-13 16:01] VITALS: BMI 43.3
[2023-06-07] VITALS (15 sets, daily range): BP systolic 130–164; BP diastolic 70–99; PULSE 63–86; RESP 12–18; TEMP 36.1–37.1; O2SAT 93–99; BMI 32.1; BMI 34.0
--- NOTE | 2023-06-07 03:34 | RAD_ITS ---
INDICATION: CHEST PAIN EXAMINATION/TECHNIQUE: X-RAY - XR Chest 1 View COMPARISON: 04/28/2023. FINDINGS: LINES/DEVICES: None. LUNGS: No consolidation, edema or effusion. No pneumothorax. MEDIASTINUM AND CARDIOVASCULAR STRUCTURES: Cardiac silhouette not enlarged. BONES AND SOFT TISSUES: Left greater than right glenohumeral osteoarthritis. RAD/Chest 1 View (Portable) IMPRESSION: No radiographic evidence of acute cardiopulmonary disease. Electronically Signed: Brown Russ MD at 4:26 EST ,
--- NOTE | 2023-06-07 03:34 | EKG12_ITS ---
Test Reason : DYSRHYTHMIA Blood Pressure : / mmHG Vent. Rate : 087 BPM Atrial Rate : 288 BPM P-R Int : 000 ms QRS Dur : 110 ms QT Int : 364 ms P-R-T Axes : 089 001 143 degrees QTc Int : 438 ms Atrial flutter with variable A-V block Septal infarct (cited on or before 26-OCT-2022) ST & T wave abnormality, consider lateral ischemia Abnormal ECG Confirmed by PATRICIA PIZANO, LAWRENCE ([id number]), sports editor INO BUITRAGO ([id number]) on 06/12/2023 6:56:09 AM Referred By: Confirmed By:DEEP GOMEZ MD
--- NOTE | 2023-06-07 03:36 | ED.VIS.CHEST ---
HPI History of Present Illness Chief Complaint: Chest Pain Informant: patient and EMS Narrative Narrative: Patient is a relatively poor historian, often given answers that do not correlate with the questions and initially starts by saying he is here because his leg was keeping him up tonight. His right knee has been hurting for about 3 weeks since an injury, it was getting better, he was getting some home physical therapy by his Palliative care nurse, then he stood up and felt sudden increase in pain in it feeling like he injured it again 2 days ago and is having more of the same pain. He wears CPAP at night and was trying to sleep tonight, he states he sat up and got lightheaded and has a history of orthostasis, so he was not surprised by that but then started getting diffuse chest tightness shortly after that followed by discomfort into his left shoulder and upper arm. It seems this is when he called EMS. He states the arm is better but his chest is still bothering him. He feels like he cannot take a deep breath but it is not because of pain, there is no pleuritic component, the discomfort does not localize substernal, and he is not dyspneic. He states he recently was wearing a a cardiac pause as long as 5.2 seconds and he is being scheduled for a pacemaker this coming month in June. Also has a history of CAD and CHF. Patient has had chest discomfort for little over an hour now. [facility] Medical History Abnormal chest xray Acquired left ventricular hypertrophy Acute midline thoracic back pain Adult failure to thrive Alcohol abuse Anemia Anxiety and depression Arthritis Asthma Atherosclerosis of coronary artery of [place] heart without angina pectoris Atrial fibrillation Benign essential HTN BiPAP (biphasic positive airway pressure) dependence Chest pain Chronic hypoxemic respiratory failure Chronic pain Chronic pain of both knees Chronic wound of head Colon cancer screening Congestive heart failure Congestive heart failure (CHF) Dark stools Debility Depression Depression Diabetes Dizziness MEANS (dyspnea on exertion) DVT (deep venous thrombosis) Dyspnea on exertion Essential (primary) hypertension Fall Fatigue Gastric ulcer GERD (gastroesophageal reflux disease) GI bleed Health care maintenance Hearing loss, left Hearing loss, right Heart failure with preserved ejection fraction History of DVT (deep vein thrombosis) History of pulmonary embolism Hypercalcemia Hyperlipidemia Hyperparathyroidism Hypertension Hyperthyroidism Hypertriglyceridemia Hypoxia Insomnia Intermittent chest pain Irregular heart beat Kidney stones Morbid obesity with BMI of 40.0-44.9, adult Near syncope Obesity Olecranon bursitis FAVIAN (obstructive sleep apnea) Osteoarthritis Osteopenia Primary hyperparathyroidism Pure hypercholesterolemia Renal insufficiency Sciatica Secondary pulmonary hypertension Seizures Shortness of breath Sleep apnea Stage 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 disease (CKD) Type 2 diabetes mellitus Vertigo Vision loss of left eye Vision loss of right eye Vitamin D deficiency Home Medications Handicap Placard #1 ea 04/08/20 [Rx Last Taken Unknown] flash glucose scanning reader ([employer] Tiffanie 2 [place]) #1 ea 02/16/21 [Rx Last Taken Unknown] pen needle, diabetic 32 gauge x 5/32 (BD Ultra-Fine Lorie Pen Needle) #360 ea 04/08/22 [Rx Last Taken Unknown] cholecalciferol (vitamin D3) 1,250 mcg (50,000 unit) capsule 1,250 mcg PO QWEEK supplement #8 caps 09/07/22 [Rx Last Taken 04/22/23] clopidogrel 75 mg tablet 75 mg PO DAILY BLOOD THINNER #90 tabs 10/03/22 [Rx Last Taken 02/25/23] fenofibrate micronized 200 mg capsule 200 mg PO DAILY cholesterol #30 caps 10/20/22 [Rx Last Taken Unknown] losartan 25 mg tablet 25 mg PO DAILY blood pressure #90 tabs 12/08/22 [Rx Last Taken Unknown] ranolazine 500 mg tablet,extended release,12 hr 500 mg PO BID chest pain #180 tabs 12/20/22 [Rx Last Taken Unknown] blood sugar diagnostic (OneTouch Verio test strips) #100 ea 03/07/23 [Rx Last Taken Unknown] cinacalcet 30 mg tablet 30 mg PO BID hypercalcemia #60 tabs 03/07/23 [Rx Last Taken Unknown] albuterol sulfate 90 mcg/actuation aerosol inhaler 2 puff inhalation Q6H PRN shortness of breath or wheezing 04/14/23 [History Last Taken Unknown] amlodipine 5 mg tablet 10 mg PO DAILY blood pressure 04/14/23 [History Last Taken Unknown] nitroglycerin 0.4 mg sublingual tablet 0.4 mg sublingual Q5M PRN chest pain 04/14/23 [History Last Taken Unknown] potassium chloride 20 mEq tablet,extended release 20 meq PO DAILY supplement 04/14/23 [History Last Taken Unknown] compress.stocking,knee,reg,lrg #2 ea 04/15/23 [Rx Last Taken Unknown] flash glucose sensor (FreeStyle Tiffanie 2 Sensor kit) #2 ea 04/15/23 [Rx Last Taken Unknown] semaglutide 1 mg/dose (4 mg/3 mL) subcutaneous pen injector (Ozempic) 1 mg subcut QWEEK 04/26/23 [History Last Taken Unknown] oxycodone 5 mg tablet 5 mg PO Q4H PRN PRN Pain Score 6-10 3 days #20 tabs 04/29/23 [Rx Last Taken Unknown] ferrous sulfate 325 mg (65 mg iron) tablet 325 mg PO DAILY supplement #90 tabs 05/19/23 [Rx Last Taken Unknown] furosemide 40 mg tablet 40 mg PO DAILY water pill #30 tabs 05/19/23 [Rx Last Taken Unknown] paroxetine HCl 40 mg tablet 40 mg PO DAILY mood #30 tabs 05/19/23 [Rx Last Taken Unknown] metoprolol succinate 50 mg tablet,extended release 24 hr 50 mg PO Q12H blood pressure 05/30/23 [History Last Taken Unknown] hydralazine 25 mg tablet 25 mg PO TID #90 tabs 05/31/23 [Rx Last Taken Unknown] pantoprazole 40 mg tablet,delayed release 40 mg PO DAILY #90 tabs 06/01/23 [Rx Last Taken Unknown] pantoprazole 40 mg tablet,delayed release 40 mg PO DAILY Stomach #30 tabs 06/01/23 [Rx Last Taken Unknown] sucralfate 1 gram tablet 1 g PO .QID 90 days #360 tabs 06/01/23 [Rx Last Taken Unknown] sucralfate 1 gram tablet 1 g PO .QID stomach 30 days #120 tabs 06/01/23 [Rx Last Taken Unknown] potassium chloride 20 mEq tablet,extended release(part/cryst) 20 meq PO BID 06/07/23 [History Last Taken Unknown] Allergy/AdvReac Type Severity Reaction Status Date / Time No Known Allergies Allergy Verified 06/07/23 03:28 Family History Mother Colon cancer Sister CAD (coronary artery disease) CABG x 5 Diabetes Myocardial infarction, Onset Age: 67 Father Crohns disease Surgical History History of appendectomy History of appendectomy 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) History of coronary artery stent placement (10/21/22) History of eye surgery History of hip replacement History of intestinal surgery History of knee surgery History of tonsillectomy and adenoidectomy Social History household members: none housing: apartment other: Hx working in [employer] and [employer]. Smoking Status: Never smoker second hand exposure: Yes alcohol intake: former year quit: 2003 details: Sober since 2003. substance use type: former substance user Date of last use: 04/10/2004 and marijuana caffeine: Yes Type: carbonated beverages Number of servings: 2 and coffee Number of servings: 2 what type of physical activity do you participate in: none ROS ROS ED Constitutional Constitutional ED: Denies chills or fever(s) Eyes Eyes: Denies change in vision or diplopia ENT ENT ED: Denies rhinorrhea or sore throat Cardiovascular Cardiovascular: Reports as per HPI, chest pain, lightheadedness, pedal edema and radiating jaw, neck or arm pain; Denies palpitations or syncope Respiratory/Chest Respiratory/Chest: Denies cough or dyspnea Gastrointestinal Gastrointestinal: Denies abdominal pain, diarrhea, nausea or vomiting Genitourinary Genitourinary ED: Denies dysuria or hematuria Musculoskeletal Musculoskeletal: Reports extremity pain; Denies back pain or neck pain Integumentary Denies abscess or rash Neurologic Neurologic: Denies headache(s), paresthesias or weakness Psychiatric Psychiatric: Denies anxiety or suicidal thoughts EXAM Physical Exam Const Vital Signs: 06/07/23 03:22 06/07/23 03:29 06/07/23 03:49 Temperature 98.7 F Temperature Source Oral Pulse Rate 83 84 Respiratory Rate 12 Respiratory Effort Normal Respiratory Depth Normal Respiratory Pattern Normal Blood Pressure 164/86 H 152/88 H Blood Pressure Mean 112 Pulse Ox 93 Oxygen Delivery Method Room Air Room Air 06/07/23 03:51 06/07/23 03:34 06/07/23 03:55 Temperature Temperature Source Pulse Rate 77 Respiratory Rate Respiratory Effort Normal Respiratory Depth Respiratory Pattern Normal Blood Pressure 130/70 H Blood Pressure Mean Pulse Ox Oxygen Delivery Method Room Air 06/07/23 04:08 Temperature Temperature Source Pulse Rate 86 Respiratory Rate Respiratory Effort Respiratory Depth Respiratory Pattern Blood Pressure 131/72 H Blood Pressure Mean Pulse Ox Oxygen Delivery Method Positive well nourished, well developed and obese General Appearance ED: well developed and NAD Nutritional Appearance: obese HEENT Reports moist mucous membranes normocephalic and atraumatic Eyes PERRL and EOMs intact bilaterally Neck full ROM, supple and no JVD Resp normal respiratory effort and clear to auscultation bilaterally Resp Narrative: no splinting w/ deep inspiration Cardio regular rate and no murmurs Rhythm: abnormal rhythm irregularly irregular Peripheral Pulses: pulses 2+ throughout GI non-tender and non-distended Auscultation: normoactive bowel sounds Palpation: soft Back/Spine no CVA tenderness General Back: other FROM Extremity normal to inspection General Extremety ED: Yes edema; Negative for pulses abnormal or tenderness General Extremity: edema bilateral lower extremity Details: mild; Negative for pulses abnormal Neuro oriented x3, CN's II-XII intact bilaterally and no sensory deficits noted Sensorium / Orientation: awake and alert Motor Exam: strength 5/5 throughout Skin no rashes or lesions noted and no wounds Heart Score History: Moderately Suspicious Age: >/= 65 years Risk Factors: >/= 3 Risk Factors or History of CAD Score: 5 MDM MDM MDM Narrative Medical decision making narrative: Patient appears to be in atrial fibrillation, his EKG is otherwise unremarkable, and unchanged compared with prior. In reviewing his old records, the A-fib is not new, it appears that he had several stents placed last October and is on clopidogrel but was taken off of aspirin and the stroke prophylactic Eliquis because of a GI bleed in the end of last year or 3 or 4 months ago, and he did have a monitor showing a 5.2-second pause while he was resting, so he apparently is being referred for EP evaluation not scheduled for pacemaker like the patient initially suggested. Regardless he has had no syncopal episodes here recently and the lightheadedness he had when he sat up in bed is a common orthostatic symptoms for him. His vital signs are normal right now and we are working him up for ACS, with a delta troponin if the initial measurement is within normal limits. His right knee pain does not sound like anything acute and new. He does not have any signs or symptoms of a DVT and I do not think his chest discomfort sounds like a pulmonary embolism so I do not think he needs workup for that right now. Indeed the patient's second troponin measurement went down, arguing against acute coronary syndrome as etiology for his chest discomfort right now. He was given morphine and a nitroglycerin, he is pain-free with regards to his chest and arm discomfort, breathing normally, vital signs are stable with blood pressure 131/72 and his knee is feeling better. Will discharge him home with close outpatient follow-up, I did review outpatient cardiology visit from 1 week ago and he is to continue the clopidogrel as I am advising as well. History & Record Review Additional record(s) reviewed:: Prior outpatient record Lab Data Attestation: I reviewed the patient's lab results. Labs: Laboratory Results - last 24 hr 06/07/23 06/07/23 03:44 05:53 WBC 11.6 H RBC 4.14 L Hgb 10.7 L Hct 35.8 L MCV 86.5 MCH 25.8 L MCHC 29.9 L RDW Std Deviation 51.9 H RDW Coeff of Thao 16.5 H Plt Count 275 MPV 9.0 Immature Gran % (Auto) 0.800 Neut % (Auto) 81.8 H Lymph % (Auto) 3.7 L [place] % (Auto) 12.4 H Eos % (Auto) 1.0 Baso % (Auto) 0.3 Absolute Neuts (auto) 9.5 H Absolute Lymphs (auto) 0.43 L Nucleated RBC % 0 Sodium 140 Potassium 3.3 L Chloride 108 H Carbon Dioxide 26.0 Anion Gap 6 BUN 31 H Creatinine 1.80 H Estim Creat Clear Calc 48.21 Est GFR (MDRD) Af Amer 49 L Est GFR (MDRD) Non-Af 40 L BUN/Creatinine Ratio 17.2 Glucose 126 H Calcium 9.7 Troponin I High Sens 38 37 Rhythm Strip Rhythm Strip: A-fib Rate: 85 Ectopy: None EKG Initial EKG: Attestation: I personally reviewed and interpreted this EKG as follows: Interpretation: No Acute Injury Pattern and Atrial Fibrillation Prior EKG tracings: available for review Prior: Unchanged Discharge Plan Triage Chief Complaint: Chest Pain Other Complaint: Lower Extremity Injury Shortness of Breath ED Provider: Brady Zaidi Dx/Rx/DC Orders Clinical Impression: Right knee sprain, Atrial fibrillation, Chest pain, unspecified Instructions: ED Chest Pain, Uncertain Cause Prescriptions: No Action (DME) Handicap Placard See Rx Instructions .ROUTE .MEDSUPPLY Qty: 1 0RF Rx Instructions: As directed, length of time 3 years (DME) FreeStyle Tiffanie 2 [place] [facility] See Rx Instructions .ROUTE .MEDSUPPLY Qty: 1 0RF Rx Instructions: As directed (DME) OneTouch Verio test strips Strip See Rx Instructions .ROUTE .MEDSUPPLY Qty: 100 12RF Rx Instructions: test 3 times daily cinacalcet 30 mg tablet 30 mg PO BID Qty: 60 8RF metoprolol succinate 50 mg tablet extended release 24 hr 50 mg PO Q12H Patient Comments: TAKE 1 TABLET BY MOUTH TWICE DAILY FOR BLOOD PRESSURE nitroglycerin 0.4 mg tablet, sublingual 0.4 mg sublingual Q5M PRN (Reason: chest pain) Rx Instructions: do not exceed 3 doses per episode albuterol sulfate 90 mcg/actuation HFA aerosol inhaler 2 puff inhalation Q6H PRN (Reason: shortness of breath or wheezing) potassium chloride 20 mEq tablet extended release 20 meq PO DAILY amlodipine 5 mg tablet 10 mg PO DAILY (DME) compress.stocking,knee,reg,lrg Misc See Rx Instructions .ROUTE .MEDSUPPLY Qty: 2 0RF Rx Instructions: Apply first thing in AM before ambulation (DME) FreeStyle Tiffanie 2 Sensor Kit See Rx Instructions .ROUTE .MEDSUPPLY Qty: 2 6RF Rx Instructions: As directed hydralazine 25 mg tablet 25 mg PO TID Qty: 90 2RF Ozempic 1 mg/dose (4 mg/3 mL) pen injector 1 mg SUBCUT QWEEK Patient Comments: INJECT 1MG (0.75ML) SUBCUTANEOUSLY EVERY WEEK oxycodone 5 mg Tablet 5 mg PO Q4H PRN PRN (Reason: Pain Score 6-10) 3 Days Qty: 20 0RF potassium chloride 20 mEq tablet,ER particles/crystals 20 meq PO BID Patient Comments: TAKE ONE (1) TABLET BY MOUTH TWICE DAILY FOR POTASSIUM (DME) pen needle, diabetic [BD Ultra-Fine Lorie Pen Needle] 32 gauge x 5/32 needle See Rx Instructions .ROUTE .MEDSUPPLY Qty: 360 5RF Rx Instructions: 4x/day cholecalciferol (vitamin D3) 1,250 mcg (50,000 unit) capsule 1,250 mcg PO QWEEK Qty: 8 6RF Hold Instructions: MD Ordered clopidogrel 75 mg tablet 75 mg PO DAILY Qty: 90 3RF fenofibrate micronized 200 mg capsule 200 mg PO DAILY Qty: 30 12RF losartan 25 mg tablet 25 mg PO DAILY Qty: 90 3RF Hold Instructions: until you see nephrology ranolazine 500 mg tablet extended release 12 hr 500 mg PO BID Qty: 180 3RF ferrous sulfate 325 mg (65 mg iron) tablet 325 mg PO DAILY Qty: 90 1RF furosemide 40 mg tablet 40 mg PO DAILY Qty: 30 1RF paroxetine HCl 40 mg tablet 40 mg PO DAILY Qty: 30 1RF pantoprazole 40 mg tablet,delayed release (DR/EC) 40 mg PO DAILY Qty: 30 0RF Rx Instructions: recently decreased from BID pantoprazole 40 mg tablet,delayed release (DR/EC) 40 mg PO DAILY Qty: 90 1RF sucralfate 1 gram tablet 1 g PO .QID 90 Days Qty: 360 1RF sucralfate 1 gram tablet 1 g PO .QID 30 Days Qty: 120 0RF Primary Care Provider: Mery Raymond Referrals: Robb Hua MD [Med Staff - Active Staff] - Mery Raymond MD [Primary Care Provider] - Disposition Disposition: Home, Self Care
[2023-06-07] MEDS: Aspirin 81 MG TAB.CHEW 324 MG PO (03:49)
[2023-06-07] MEDS: Nitroglycerin SL (ED/IMG/CATH) 0.4 MG TABLET 0.400000000000000022 MG SL ×3 (03:49→04:08)
[2023-06-07] MEDS: Morphine 4 MG/ML Syringe IV (03:50)
[2023-06-07 03:52] LABS: Absolute Lymphocyte Count 0.43 X10^3/uL (0.83-4.51); Absolute Neutrophil Count 9.5 X10^3/uL (2.0-7.7); Basophil# 0.04 X10^3/uL; Basophil% 0.3 % (0-1); Eosinophil# 0.12 X10^3/uL; Hematocrit 35.8 % (40-54); Hemoglobin 10.7 g/dL (13.0-16.5); Lymphocyte # 0.43 X10^3/ul (0.83-4.51); Lymphocyte % 3.7 % (19-41); Mean Corp Hgb Conc 29.9 g/dL (32-36); Mean Corpuscular Hgb 25.8 pg (27.0-32.0); Mean Corpuscular Volume 86.5 fL (80-94); Monocyte# 1.44 X10^3/uL; Monocyte% 12.4 % (0-10); NRBC Flagged by Analyzer 0 % (0-5); Neutrophil # 9.52 X10^3/uL (2.7-7.7); Neutrophil % 81.8 % (47-70); POSITIVE DIFFERENTIAL YES; Platelet Count 275 K/mm3 (150-450); RBC Distribution Width CV 16.5 % (11.6-14.6); RBC Distribution Width SD 51.9 fl (35.1-43.9); Red Blood Count 4.14 M/mm3 (4.6-6.2); White Blood Count 11.6 K/mm3 (4.4-11.0)
--- OUTSIDE RECORDS SUMMARY | 2023-06-07 03:53 | XMS RPT_ITS | CCD ---
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 of insulin / Z79.4(ICD-10) Onset: [...] Unclassified (1 source) Athscl heart disease of [place] coronary artery w/o ang pctrs / I25.10(ICD-10) [...] / Z68.41(ICD-10) Onset: 11-07-2017 Unclassified (1 source) skilled nursing (current) use of antithrombotics/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 / Z79.02(ICD-10) [...] Evaluation and management of inpatient AIMEE SOOD Facility:[facility] Start: 10-25-2017 Patient encounter AIMEECHOCO Mcpherson Facility:[facility] Start: 10-10-2017 Patient encounter AIMEE Mcpherson Facility:[id number] Start: 08-22-2017 Patient encounter AIMEE Mcpherson Facility:[id number] Start: 08-07-2017 End: 08-07-2017 Patient encounter AIMEE SOOD Facility:[facility] Start: 08-07-2017 Patient encounter Liam Susanmariana Alfred Facility:[facility] Start: 07-31-2017 Patient encounter AIMEECHOCO Mcpherson Facility:[facility] Start: 06-15-2017 End: 06-15-2017 Patient encounter Jeane Beth Facility:[facility] Start: 06-15-2017 Emergency department visit limited/minor prob AIMEE SOOD [facility] Start: 06-15-2017 End: 06-15-2017 Patient encounter AIMEE SOOD Facility:[facility] Start: 06-12-2017 Patient encounter AIMEE Say Mcpherson Facility:[facility] Start: 06-12-2017 Patient encounter AIMEE Mcpherson Facility:[facility] Procedures Date Procedure Procedure Detail Performing Clinician [...] SOOD Payers Date Payer Category Payer Medicare [id number] Unknown [id number] Summary Purpose Family History No Family History Records FoundNo Family History Records Found Advance Directives No Advanced Directives Records FoundNo Advanced Directives Records Found Additional Source Comments (unrecognized sect ion and content) No Status Records FoundNo Status Records Found INFORMATION SOURCE (unrecogn ized section and content) DATE CREATED AUTHOR [employer] [place] 01/31/2018 [employer] [facility] FOR RECORDS PERTAINING TO PATIENTS WHO ARE [...] BE BASED ON THE PRIMARY CLINICAL RECORDS. [facility] [employer] [facility]. provides no warranty or guarantee of the accuracy or completeness of information in this document.
[2023-06-07 04:13] LABS: Anion Gap 6 (5-15); BUN 31 mg/dL (7-18); BUN/Creat Ratio 17.2 RATIO (10-20); Calcium,Total 9.7 mg/dL (8.5-10.1); Chloride 108 mmol/L (98-107); EST Glomerular Filtration Rate 40 mL/min (>60); Est Glom Filt Rate - Afr Amer 49 mL/min (>60); Estimated Creatinine Clearance 48.21 ml/min; Glucose 126 mg/dL (74-106); Potassium 3.3 mmol/L (3.5-5.1); Sodium Level 140 mmol/L (136-145); Troponin-I HS (w/2H Reflex) 38 pg/mL (3.0-78.0)
[2023-06-07 05:49] LABS: Reflex Troponin-HS? (from REC) Y
[2023-06-07 06:24] LABS: Troponin-I HS 37 pg/mL (3.0-78.0)
[2023-06-07] MEDS: oxyCODONE 5 MG Tablet PO ×4 (06:53→21:55)
--- NOTE | 2023-06-07 08:15 | ED.RN ---
This RN was at triage desk and wheeled patient to the restroom. Pt. unable to get up and walk into bathroom. Pt. ride came to pick patient up and he is too weak to ambulate into vehicle.
--- NOTE | 2023-06-07 08:15 | ED.RN ---
PT WAS PLACED IN ED WAITING ROOM. [facility] TO GENERAL COUNSELOR THE PATIENT, PT UNABLE TO AMBULATES TO GET INTO THE VAN. PT IN TRIAGE TO GET NEW UPDATED VS. DR. MORAN INFORMED OF PT RETURN.
--- NOTE | 2023-06-07 08:24 | RAD_ITS ---
STUDY: X-RAY - RIGHT KNEE REASON FOR EXAM: Male, 67 years old. Recent fall. Pain. TECHNIQUE: 2 view(s) of the knee. COMPARISON: None. FINDINGS: Normal visualized distal femur. Normal visualized proximal tibia and fibula. Normal proximal tibiofibular articulation. There is severe degenerative arthrosis of the medial femorotibial compartment with severe joint space narrowing. Normal lateral femorotibial compartment. There is severe degenerative arthrosis of the patellofemoral articulation. Small joint effusion. Prepatellar soft tissue swelling/laceration. RAD/Knee 1 or 2 Views IMPRESSION: Degenerative arthrosis. Small joint effusion. Prepatellar soft tissue swelling/laceration. Vascular calcification. Electronically Signed: Rodrigo Suarez MD at 9:15 EST ,
--- NOTE | 2023-06-07 09:18 | PCM.HP.STD ---
HPI - General General Date of Admission: 06/07/23 Date of Service: 06/07/23 Chief Complaint: Inability to ambulate secondary to right knee pain HPI Narrative ELIANE KAY, is a 67 M who presented to the emergency department at [facility] early on the morning of 06/07/2023 complaining of chest pain. Extensive chest pain workup was performed and was unremarkable. Patient has known coronary disease and had a recent cardiac catheterization and is on medical therapy. Had recent follow-up with cardiology as well. He was being discharged and was unable to ambulate due to right knee pain so he came back to the emergency department stating he needed to be placed at a nursing facility for rehab. He states he is unable to take care of himself as he lives alone. He reported that he has been having ongoing knee pain however on Monday he stood up and twisted and has been having increased pain since then with progressive worsening of pain in the joint. Previous x-rays show significant osteoarthritis with a moderate joint effusion. Current images are pending. The patient is willing to be placed at a facility if need be. He has never seen orthopedic surgery for this not had any intervention. His x-ray shows significant medial compartment joint narrowing as well as osteoarthritis at the patellofemoral joint. He also does appear to have lateral joint compartment narrowing as well however it does not appear to be as significant as the medial joint compartment. These are x-rays from 04/26/2023. Vital signs on presentation were unremarkable. CBC shows a stable normocytic anemia with a mildly elevated white count 11.6 and a left shift. He also does appear to have a monocytosis. His chemistry panel reveals mild hypokalemia with potassium of 3.3 and stable serum creatinine at 1.8. Blood glucose is 126. He had a recent hemoglobin A1c on 05/31/2023 at 6.8. His cardiac enzymes were cycled with an initial and delta they were 38 and 37 respectively. His EKG is unchanged from previous with no ST-T wave changes concerning for acute ischemia. Again, all imaging is pending at this time. [facility] Medical History Abnormal chest xray Acquired left ventricular hypertrophy Acute midline thoracic back pain Adult failure to thrive Alcohol abuse Anemia Anxiety and depression Arthritis Asthma Atherosclerosis of coronary artery of [place] heart without angina pectoris Atrial fibrillation Benign essential HTN BiPAP (biphasic positive airway pressure) dependence Chest pain Chronic hypoxemic respiratory failure Chronic pain Chronic pain of both knees Chronic wound of head Colon cancer screening Congestive heart failure Congestive heart failure (CHF) Dark stools Debility Depression Depression Diabetes Dizziness MEANS (dyspnea on exertion) DVT (deep venous thrombosis) Dyspnea on exertion Essential (primary) hypertension Fall Fatigue Gastric ulcer GERD (gastroesophageal reflux disease) GI bleed Health care maintenance Hearing loss, left Hearing loss, right Heart failure with preserved ejection fraction History of DVT (deep vein thrombosis) History of pulmonary embolism Hypercalcemia Hyperlipidemia Hyperparathyroidism Hypertension Hyperthyroidism Hypertriglyceridemia Hypoxia Insomnia Intermittent chest pain Irregular heart beat Kidney stones Morbid obesity with BMI of 40.0-44.9, adult Near syncope Obesity Olecranon bursitis FAVIAN (obstructive sleep apnea) Osteoarthritis Osteopenia Primary hyperparathyroidism Pure hypercholesterolemia Renal insufficiency Sciatica Secondary pulmonary hypertension Seizures Shortness of breath Sleep apnea Stage 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 disease (CKD) Type 2 diabetes mellitus Vertigo Vision loss of left eye Vision loss of right eye Vitamin D deficiency Home Medications Handicap Placard #1 ea 04/08/20 [Rx Last Taken Unknown] flash glucose scanning reader (Ranker Tiffanie 2 [place]) #1 ea 02/16/21 [Rx Last Taken Unknown] pen needle, diabetic 32 gauge x 5/32 (BD Ultra-Fine Lorie Pen Needle) #360 ea 04/08/22 [Rx Last Taken Unknown] cholecalciferol (vitamin D3) 1,250 mcg (50,000 unit) capsule 1,250 mcg PO QWEEK supplement #8 caps 09/07/22 [Rx Last Taken 04/22/23] clopidogrel 75 mg tablet 75 mg PO DAILY BLOOD THINNER #90 tabs 10/03/22 [Rx Last Taken 02/25/23] fenofibrate micronized 200 mg capsule 200 mg PO DAILY cholesterol #30 caps 10/20/22 [Rx Last Taken Unknown] losartan 25 mg tablet 25 mg PO DAILY blood pressure #90 tabs 12/08/22 [Rx Last Taken Unknown] ranolazine 500 mg tablet,extended release,12 hr 500 mg PO BID chest pain #180 tabs 12/20/22 [Rx Last Taken Unknown] blood sugar diagnostic (ARTENCY.COMuch Verio test strips) #100 ea 03/07/23 [Rx Last Taken Unknown] cinacalcet 30 mg tablet 30 mg PO BID hypercalcemia #60 tabs 03/07/23 [Rx Last Taken Unknown] albuterol sulfate 90 mcg/actuation aerosol inhaler 2 puff inhalation Q6H PRN shortness of breath or wheezing 04/14/23 [History Last Taken Unknown] amlodipine 5 mg tablet 10 mg PO DAILY blood pressure 04/14/23 [History Last Taken Unknown] nitroglycerin 0.4 mg sublingual tablet 0.4 mg sublingual Q5M PRN chest pain 04/14/23 [History Last Taken Unknown] potassium chloride 20 mEq tablet,extended release 20 meq PO DAILY supplement 04/14/23 [History Last Taken Unknown] compress.stocking,knee,reg,lrg #2 ea 04/15/23 [Rx Last Taken Unknown] flash glucose sensor (Ranker Tiffanie 2 Sensor kit) #2 ea 04/15/23 [Rx Last Taken Unknown] semaglutide 1 mg/dose (4 mg/3 mL) subcutaneous pen injector (Ozempic) 1 mg subcut QWEEK 04/26/23 [History Last Taken Unknown] oxycodone 5 mg tablet 5 mg PO Q4H PRN PRN Pain Score 6-10 3 days #20 tabs 04/29/23 [Rx Last Taken Unknown] ferrous sulfate 325 mg (65 mg iron) tablet 325 mg PO DAILY supplement #90 tabs 05/19/23 [Rx Last Taken Unknown] furosemide 40 mg tablet 40 mg PO DAILY water pill #30 tabs 05/19/23 [Rx Last Taken Unknown] paroxetine HCl 40 mg tablet 40 mg PO DAILY mood #30 tabs 05/19/23 [Rx Last Taken Unknown] metoprolol succinate 50 mg tablet,extended release 24 hr 50 mg PO Q12H blood pressure 05/30/23 [History Last Taken Unknown] hydralazine 25 mg tablet 25 mg PO TID #90 tabs 05/31/23 [Rx Last Taken Unknown] pantoprazole 40 mg tablet,delayed release 40 mg PO DAILY #90 tabs 06/01/23 [Rx Last Taken Unknown] pantoprazole 40 mg tablet,delayed release 40 mg PO DAILY Stomach #30 tabs 06/01/23 [Rx Last Taken Unknown] sucralfate 1 gram tablet 1 g PO .QID 90 days #360 tabs 06/01/23 [Rx Last Taken Unknown] sucralfate 1 gram tablet 1 g PO .QID stomach 30 days #120 tabs 06/01/23 [Rx Last Taken Unknown] potassium chloride 20 mEq tablet,extended release(part/cryst) 20 meq PO BID 06/07/23 [History Last Taken Unknown] Allergy/AdvReac Type Severity Reaction Status Date / Time No Known Allergies Allergy Verified 06/07/23 03:28 Family History Mother Colon cancer Sister CAD (coronary artery disease) CABG x 5 Diabetes Myocardial infarction, Onset Age: 67 Father Crohns disease Surgical History History of appendectomy History of appendectomy 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) History of coronary artery stent placement (10/21/22) History of eye surgery History of hip replacement History of intestinal surgery History of knee surgery History of tonsillectomy and adenoidectomy Social History household members: none housing: apartment other: Hx working in [employer] and [employer]. Smoking Status: Never smoker second hand exposure: Yes alcohol intake: former year quit: 2003 details: Sober since 2003. substance use type: former substance user Date of last use: 04/10/2004 and marijuana caffeine: Yes Type: carbonated beverages Number of servings: 2 and coffee Number of servings: 2 what type of physical activity do you participate in: none ROS Constitutional Constitutional: Reports weakness; Denies anorexia, change in weight, chills, fatigue, fever(s), malaise, night sweats or other Eyes Eyes: Denies blurry vision, change in eye color, change in vision, discharge from eye(s), double vision, erythema, eye pain, loss of vision or other ENT HEENT: Denies abnormal hearing, dysphagia, ear pain, epistaxis, headache(s), hearing loss, nasal congestion, nasal discharge, post nasal drip, sinus pressure, sore throat or other Cardiovascular Cardiovascular: Reports chest pain; Denies claudication, dyspnea on exertion, edema, lightheadedness, orthopnea, palpitations, paroxysmal nocturnal dyspnea, rapid heart rate, syncope or other Respiratory/Chest Respiratory/Chest: Denies cough, dyspnea, excessive phlegm production, hemoptysis, productive cough, shortness of breath at rest, shortness of breath with exertion, wheezing or other Gastrointestinal Gastrointestinal: Denies abdominal pain, coffee ground emesis, constipation, diarrhea, dyspepsia, hematemesis, hematochezia, loose stools, melena, nausea, vomiting or other Genitourinary Genitourinary: Denies burning urination, difficulty urinating, dysuria, hematuria, nocturia, urinary frequency, urinary hesitancy, urinary incontinence, urinary urgency or other Musculoskeletal Musculoskeletal: Reports joint pain, joint stiffness and joint swelling; Denies arthralgias, back pain, myalgias, neck pain or other Neurologic Neurologic: Reports abnormal gait; Denies abnormal speech, confusion, disequilibrium, dizziness, focal weakness, headache(s), numbness, paresthesias, seizure-like activity, seizures, syncope, tingling, tremor(s) or other Psychiatric Psychiatric: Reports anxiety and depression; Denies homicidal ideation, suicidal ideation or other Endocrine Endocrinology: Denies change in body appearance, cold intolerance, excessive sweating, heat intolerance, polydipsia, polyuria or other Hematologic/Lymphatic Hematologic/Lymphatic: Denies anemia, easy bleeding, easy bruising, lymphadenopathy or other Allergic/Immunologic Allergic/Immunologic: Denies rhinitis, hives, eczemia, asthma or other Vital Signs Vital Signs Vital Signs: 06/07/23 03:22 06/07/23 03:29 06/07/23 03:49 Temperature 98.7 F Temperature Source Oral Pulse Rate 83 84 Respiratory Rate 12 Respiratory Effort Normal Respiratory Depth Normal Respiratory Pattern Normal Blood Pressure 164/86 H 152/88 H Blood Pressure Mean 112 Pulse Ox 93 Oxygen Delivery Method Room Air Room Air 06/07/23 03:51 06/07/23 03:34 06/07/23 03:55 Temperature Temperature Source Pulse Rate 77 Respiratory Rate Respiratory Effort Normal Respiratory Depth Respiratory Pattern Normal Blood Pressure 130/70 H Blood Pressure Mean Pulse Ox Oxygen Delivery Method Room Air 06/07/23 04:08 06/07/23 06:00 06/07/23 06:45 Temperature 97.8 F Temperature Source Pulse Rate 86 78 82 Respiratory Rate 18 16 Respiratory Effort Respiratory Depth Respiratory Pattern Blood Pressure 131/72 H 138/99 H 138/99 H Blood Pressure Mean 112 112 Pulse Ox 99 99 Oxygen Delivery Method Room Air 06/07/23 08:16 Temperature 97.0 F L Temperature Source Temporal Pulse Rate 75 Respiratory Rate 18 Respiratory Effort Respiratory Depth Respiratory Pattern Blood Pressure 144/90 H Blood Pressure Mean 108 Pulse Ox 98 Oxygen Delivery Method Room Air Weight Weight: 101.6 kg Body Mass Index (BMI) 32.1 Physical Exam Const alert, oriented x3, no apparent distress and well nourished; Negative for average body habitus Constitutional Narrative: Obese, upper middle-aged, white male, sitting in bed, appears older than stated age, currently appears comfortable and talking on cell phone at the time of my arrival, does not appear toxic General Appearance: cooperative HEENT normocephalic, head/scalp atraumatic, hearing grossly normal bilaterally and moist oral mucous membranes HEENT Narrative: Mallampati 3, no thrush, dentition is fair with several missing teeth Eyes PERRL, EOMs intact bilaterally and conjunctivae normal Eyes Narrative: No scleral icterus Neck no lymphadenopathy and supple Neck Narrative: Trachea is midline, no thyroid enlargement Resp normal respiratory effort, no retractions, no use of accessory muscles and clear to auscultation bilaterally Auscultation: Negative for rales, rhonchi or wheezes Cardio regular rate, S1 normal heart sound, S2 normal heart sound, no murmurs, no rub, no gallops and no clicks Cardio Narrative: Irregular irregular rhythm with regular rate GI normal to inspection, nondistended, normoactive bowel sounds, soft to palpation and non-tender Extremity Extremity Narrative: Bilateral lower extremity edema that is pitting in 1-2+ in nature-patient states this is chronic, no cyanosis or clubbing, right knee with mild joint effusion and decreased active and passive range of motion, joint changes consistent with osteoarthritis Neuro oriented x3, CN's II-XII intact bilaterally, moves all extremities and no focal motor deficits Speech: speech normal Psych affect normal Psych Narrative: Interacts appropriately, eye contact is good, patient is pleasant Results Lab / Micro Data 06/07/23 03:44 06/07/23 03:44 Labs: Laboratory Results - last 24 hr 06/07/23 03:44: WBC 11.6 H, RBC 4.14 L, Hgb 10.7 L, Hct 35.8 L, MCV 86.5, MCH 25.8 L, MCHC 29.9 L, RDW Std Deviation 51.9 H, RDW Coeff of Thao 16.5 H, Plt Count 275, MPV 9.0, Immature Gran % (Auto) 0.800, Neut % (Auto) 81.8 H, Lymph % (Auto) 3.7 L, Arch[place]ta % (Auto) 12.4 H, Eos % (Auto) 1.0, Baso % (Auto) 0.3, Absolute Neuts (auto) 9.5 H, Absolute Lymphs (auto) 0.43 L, Nucleated RBC % 0, Sodium 140, Potassium 3.3 L, Chloride 108 H, Carbon Dioxide 26.0, Anion Gap 6, BUN 31 H, Creatinine 1.80 H, Estim Creat Clear Calc 48.21, Est GFR (MDRD) Af Amer 49 L, Est GFR (MDRD) Non-Af 40 L, BUN/Creatinine Ratio 17.2, Glucose 126 H, Calcium 9.7, Troponin I High Sens 38 06/07/23 05:53: Troponin I High Sens 37 Rhythm Strip Rhythm Strip: A-fib Rate: 85 Ectopy: None Assessment & Plan Assessment/Plan (1) Right knee sprain: (2) Inability to ambulate due to knee: (3) Generalized weakness: (4) Hypokalemia: PLAN: Plan Right knee pain with resulting inability to walk and generalized weakness/debility -As needed oxycodone -Scheduled Tylenol -Lidocaine patch -Would recommend outpatient bracing and orthopedic follow-up -PT/OT consultation -Patient is amenable to placement if need be -Consult case management and social work Chronic anemia secondary to chronic renal disease -Baseline hemoglobin appears to run between 9.5 and 11 -Currently 10.7 -Continue to monitor History of GI bleed secondary to gastric ulcer -Continue Protonix 40 mg daily -Continue home Carafate -Continue outpatient GI follow-up CKD stage IIIb -Baseline serum creatinine appears to run between 1.8 and 2.1 -Current serum creatinine is 1.8 -Continue outpatient nephrology follow-up FAVIAN -Patient with history of noncompliance CAD/HTN/HPL/secondary pulmonary hypertension -Last stent was placed in October 2022 -Continue Plavix -Continue home amlodipine -Continue home hydralazine -Continue home losartan -Continue home Ranexa -Continue Lasix -Recommend ongoing outpatient follow-up with cardiology History of DVT/PE -Remote -Not on anticoagulation due to recent GI bleeds Paroxysmal atrial fibrillation -Patient is in rate controlled A-fib currently continue home beta-robinson -Patient is not anticoagulated due to GI bleeding and will discuss at his next visit with Dr. Gonzales per cardiology documentation from 05/30/2023 DM-2 -Home agents are on hold both oral and Ozempic -Add subcu SSI every 6 hours -Accu-Cheks as ordered -Patient with recent well-controlled hemoglobin A1c at 6.4 History of hypercalcemia secondary to hyperparathyroidism -Continue home medication -Check a.m. CMP to assess calcium -Continue home cinacalcet -Continue outpatient follow-up with Dr. Urias Chronic pain -Avoid NSAIDs -As needed Tylenol available -As needed oxycodone for acute knee pain Depression/anxiety -Continue home paroxetine Obesity -Weight is 32.1 -Recommend weight loss -Complicates treatment, prognosis, outcomes DVT prophylaxis -Heparin 3 times daily CODE STATUS Full Code Charges/Coding Visit Charges Inpatient E&M: 56573 Init Hosp L2
[2023-06-07 11:25] LABS: Bedside Glucose 136 mg/dL (74-106)
[2023-06-07] MEDS: Lidocaine 5% Patch 1 PATCH TOPICAL (12:02)
[2023-06-07] MEDS: Potassium Chloride Oral Tablet 20 MEQ 40 MEQ PO (12:03)
[2023-06-07] MEDS: Paroxetine 20 MG Tablet 40 MG PO (12:05)
[2023-06-07] MEDS: Ferrous Sulfate 325 MG Tablet PO (12:05)
[2023-06-07] MEDS: Losartan Potassium 25 MG Tablet PO (12:06)
[2023-06-07] MEDS: Furosemide 40 MG Tablet PO (12:06)
[2023-06-07] MEDS: amLODIPine 10 MG Tablet PO (12:06)
[2023-06-07] MEDS: Metoprolol(XL)Succ 50 MG Tablet PO ×2 (12:07→21:47)
[2023-06-07] MEDS: Clopidogrel Bisulfate 75 MG Tablet PO (12:07)
[2023-06-07] MEDS: Cinacalcet HCl 30 MG Tablet PO ×2 (12:07→21:47)
[2023-06-07] MEDS: Pantoprazole Sodium 40 MG Tablet PO (12:07)
[2023-06-07] MEDS: Ranolazine 500 MG Tablet PO ×2 (12:07→21:47)
[2023-06-07] MEDS: Sucralfate 1 GM Tablet PO ×2 (12:08→21:47)
[2023-06-07] MEDS: Acetaminophen 500 MG Tablet 1000 MG PO ×2 (14:27→21:48)
[2023-06-07] MEDS: Heparin Injection (Vial) 5,000 UNIT/ML VIAL 5000 UNIT SC ×2 (16:54→21:48)
[2023-06-07] MEDS: hydrALAZINE 25 MG Tablet PO ×2 (16:54→21:46)
[2023-06-07 17:19] LABS: Bedside Glucose 143 mg/dL (74-106)
--- OUTSIDE RECORDS SUMMARY | 2023-06-07 18:17 | XMS RPT_ITS | CCD ---
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) use of insulin / Z79.4(ICD-10) Onset: [...] Unclassified (1 source) Athscl heart disease of [place] coronary artery w/o ang pctrs / [...] / Z68.41(ICD-10) Onset: 11-07-2017 Unclassified (1 source) senior care (current) use of antithrombotics/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 / Z79.02(ICD-10) [...] Evaluation and management of inpatient AIMEE SOOD Facility:[facility] Start: 10-25-2017 Patient encounter AIMEECHOCO Mcpherson Facility:[facility] Start: 10-10-2017 Patient encounter AIMEE Mcpherson Facility:[id number] Start: 08-22-2017 Patient encounter AIMEE Mcpherson Facility:[id number] Start: 08-07-2017 End: 08-07-2017 Patient encounter AIMEE SOOD Facility:[facility] Start: 08-07-2017 Patient encounter Liam Susanmariana Alfred Facility:[facility] Start: 07-31-2017 Patient encounter AIMEECHOCO Mcpherson Facility:[facility] Start: 06-15-2017 End: 06-15-2017 Patient encounter Jeane Beth Facility:[facility] Start: 06-15-2017 Emergency department visit limited/minor prob AIMEE SOOD [facility] Start: 06-15-2017 End: 06-15-2017 Patient encounter AIMEE SOOD Facility:[facility] Start: 06-12-2017 Patient encounter AIMEE Say Mcpherson Facility:[facility] Start: 06-12-2017 Patient encounter AIMEE Mcpherson Facility:[facility] Procedures Date Procedure Procedure Detail Performing [...] SOOD Payers Date Payer Category Payer Medicare [id number] Unknown [id number] Summary Purpose Family History No Family History Records FoundNo Family History Records Found Advance Directives No Advanced Directives Records FoundNo Advanced Directives Records Found Additional Source Comments (unrecognized sect ion and content) No Status Records FoundNo Status Records Found INFORMATION SOURCE (unrecogn ized section and content) DATE CREATED AUTHOR [facility]'S [place] 01/31/2018 [facility] FOR RECORDS PERTAINING TO PATIENTS WHO ARE [...] BE BASED ON THE PRIMARY CLINICAL RECORDS. [facility] [employer] [facility]. provides no warranty or guarantee of the accuracy or completeness of information in this document.
[2023-06-07] MEDS: Potassium Chloride Oral Tablet 20 MEQ PO (18:58)
[2023-06-08] VITALS (8 sets, daily range): BP systolic 138–158; BP diastolic 67–101; PULSE 65–82; RESP 16–20; TEMP 36.6–36.9; O2SAT 93–97; BMI 34.1
[2023-06-08] MEDS: Acetaminophen 500 MG Tablet 1000 MG PO ×2 (05:48→14:24)
[2023-06-08] MEDS: hydrALAZINE 25 MG Tablet PO ×2 (05:48→14:21)
[2023-06-08] MEDS: Heparin Injection (Vial) 5,000 UNIT/ML VIAL 5000 UNIT SC (06:52)
[2023-06-08] MEDS: Sucralfate 1 GM Tablet PO ×2 (06:52→11:44)
[2023-06-08] MEDS: Insulin Lispro 100 UNIT/ML INSULN.PEN SC ×2 (06:54→11:44)
[2023-06-08 07:04] LABS: Absolute Lymphocyte Count 0.39 X10^3/uL (0.83-4.51); Absolute Neutrophil Count 5.9 X10^3/uL (2.0-7.7); Basophil# 0.04 X10^3/uL; Basophil% 0.5 % (0-1); Eosinophil# 0.08 X10^3/uL; Eosinophils% 1.1 % (0-5); Hematocrit 33.7 % (40-54); Hemoglobin 10.3 g/dL (13.0-16.5); Lymphocyte # 0.39 X10^3/ul (0.83-4.51); Lymphocyte % 5.1 % (19-41); Mean Corp Hgb Conc 30.6 g/dL (32-36); Mean Corpuscular Hgb 26.1 pg (27.0-32.0); Mean Corpuscular Volume 85.3 fL (80-94); Mean Platelet Vol. 9.7 fl (6.2-12.0); Monocyte% 15.8 % (0-10); NRBC Flagged by Analyzer 0 % (0-5); Neutrophil # 5.86 X10^3/uL (2.7-7.7); POSITIVE COUNT YES; POSITIVE DIFFERENTIAL YES; Platelet Count 256 K/mm3 (150-450); RBC Distribution Width CV 16.5 % (11.6-14.6); RBC Distribution Width SD 51.9 fl (35.1-43.9); Red Blood Count 3.95 M/mm3 (4.6-6.2); White Blood Count 7.6 K/mm3 (4.4-11.0)
[2023-06-08 07:19] LABS: Differential Indicated SCAN CRITERIA MET
[2023-06-08 07:20] LABS: Bedside Glucose 173 mg/dL (74-106)
[2023-06-08 07:31] LABS: ALB/GLOB Ratio 0.9 RATIO (0.9-2.4); AST(SGOT) 16 U/L (15-37); Alanine Aminotransfer ALT/SGPT 19 U/L (16-61); Albumin, Serum 3.2 g/dL (3.2-5.0); Alkaline Phosphatase 59 U/L (45-117); Anion Gap 4 (5-15); BUN 25 mg/dL (7-18); BUN/Creat Ratio 13.9 RATIO (10-20); Calcium,Total 10.3 mg/dL (8.5-10.1); Chloride 108 mmol/L (98-107); EST Glomerular Filtration Rate 40 mL/min (>60); Est Glom Filt Rate - Afr Amer 49 mL/min (>60); Estimated Creatinine Clearance 49.65 ml/min; Globulin 3.4 g/dL (2.2-4.2); Glucose 171 mg/dL (74-106); Magnesium 1.8 mg/dL (1.6-2.6); Phosphorus 2.3 mg/dL (2.5-4.9); Potassium 3.3 mmol/L (3.5-5.1); Protein, Total 6.6 g/dL (6.4-8.2); Sodium Level 137 mmol/L (136-145)
[2023-06-08 08:16] LABS: Differential Comment SCANNED
[2023-06-08] MEDS: Metoprolol(XL)Succ 50 MG Tablet PO (08:44)
[2023-06-08] MEDS: Cinacalcet HCl 30 MG Tablet PO (08:45)
[2023-06-08] MEDS: Ranolazine 500 MG Tablet PO (08:45)
[2023-06-08] MEDS: Clopidogrel Bisulfate 75 MG Tablet PO (08:45)
[2023-06-08] MEDS: Pantoprazole Sodium 40 MG Tablet PO (08:45)
[2023-06-08] MEDS: Paroxetine 20 MG Tablet 40 MG PO (08:45)
[2023-06-08] MEDS: Losartan Potassium 25 MG Tablet PO (08:46)
[2023-06-08] MEDS: amLODIPine 10 MG Tablet PO (08:46)
[2023-06-08] MEDS: Furosemide 40 MG Tablet PO (08:46)
[2023-06-08] MEDS: Lidocaine 5% Patch 1 PATCH TOPICAL (08:46)
[2023-06-08] MEDS: oxyCODONE 5 MG Tablet PO (08:47)
[2023-06-08] MEDS: Fenofibrate 145 MG Tablet PO (08:47)
[2023-06-08] MEDS: Potassium Chloride Oral Tablet 20 MEQ PO (08:47)
[2023-06-08] MEDS: Potassium Chloride Oral Tablet 20 MEQ 40 MEQ PO (08:47)
[2023-06-08] MEDS: Potassium Phosphate 21 MM in 0.9% Normal Saline (250mL Bag) 250 ML 84 MM IV (11:28)
[2023-06-08] MEDS: 0.9% Saline Lock 10 ML Syringe IV (11:45)
[2023-06-08] MEDS: Ferrous Sulfate 325 MG Tablet PO (11:48)
--- NOTE | 2023-06-08 12:06 | PCM.DC.SUM ---
Providers Date of Admission: 06/07/23 Date of Discharge: 06/08/23 Primary Care Physician: Dr. Mery Raymond MD Reason For Visit: R KNEE PAIN/ INABILITY TO WALK Diagnosis Discharge Diagnosis (1) Right knee sprain: Status: Acute Code(s): S83.91XA - Sprain of unspecified site of right knee, initial encounter (2) Inability to ambulate due to knee: Status: Acute Code(s): R26.2 - Difficulty in walking, not elsewhere classified (3) Generalized weakness: Status: Acute Code(s): R53.1 - Weakness (4) Hypokalemia: Status: Acute Code(s): E87.6 - Hypokalemia Plan Right knee pain with resulting inability to walk and generalized weakness/debility -As needed oxycodone -Scheduled Tylenol -Lidocaine patch -Would recommend outpatient bracing and orthopedic follow-up -PT/OT consultation -Patient is amenable to placement if need be -Consult case management and social work Chronic anemia secondary to chronic renal disease -Baseline hemoglobin appears to run between 9.5 and 11 -Currently 10.7 -Continue to monitor History of GI bleed secondary to gastric ulcer -Continue Protonix 40 mg daily -Continue home Carafate -Continue outpatient GI follow-up CKD stage IIIb -Baseline serum creatinine appears to run between 1.8 and 2.1 -Current serum creatinine is 1.8 -Continue outpatient nephrology follow-up FAVIAN -Patient with history of noncompliance CAD/HTN/HPL/secondary pulmonary hypertension -Last stent was placed in October 2022 -Continue Plavix -Continue home amlodipine -Continue home hydralazine -Continue home losartan -Continue home Ranexa -Continue Lasix -Recommend ongoing outpatient follow-up with cardiology History of DVT/PE -Remote -Not on anticoagulation due to recent GI bleeds Paroxysmal atrial fibrillation -Patient is in rate controlled A-fib currently continue home beta-robinson -Patient is not anticoagulated due to GI bleeding and will discuss at his next visit with Dr. Gonzales per cardiology documentation from 05/30/2023 DM-2 -Home agents are on hold both oral and Ozempic -Add subcu SSI every 6 hours -Accu-Cheks as ordered -Patient with recent well-controlled hemoglobin A1c at 6.4 History of hypercalcemia secondary to hyperparathyroidism -Continue home medication -Check a.m. CMP to assess calcium -Continue home cinacalcet -Continue outpatient follow-up with Dr. Urias Chronic pain -Avoid NSAIDs -As needed Tylenol available -As needed oxycodone for acute knee pain Depression/anxiety -Continue home paroxetine Obesity -Weight is 32.1 -Recommend weight loss -Complicates treatment, prognosis, outcomes DVT prophylaxis -Heparin 3 times daily CODE STATUS Full Code Medications at Discharge Home Medications Handicap Placard #1 ea 04/08/20 flash glucose scanning reader (Poxelyle Tiffanie 2 Mabie) #1 ea 02/16/21 pen needle, diabetic 32 gauge x 5/32 (BD Ultra-Fine Lorie Pen Needle) #360 ea 04/08/22 clopidogrel 75 mg tablet 75 mg PO DAILY BLOOD THINNER #90 tabs 10/03/22 fenofibrate micronized 200 mg capsule 200 mg PO DAILY cholesterol #30 caps 10/20/22 losartan 25 mg tablet 25 mg PO DAILY blood pressure #90 tabs 12/08/22 ranolazine 500 mg tablet,extended release,12 hr 500 mg PO BID chest pain #180 tabs 12/20/22 blood sugar diagnostic (ValueFirst MessagingTouch Verio test strips) #100 ea 03/07/23 cinacalcet 30 mg tablet 30 mg PO BID hypercalcemia #60 tabs 03/07/23 albuterol sulfate 90 mcg/actuation aerosol inhaler 2 puff inhalation Q6H PRN shortness of breath or wheezing 04/14/23 amlodipine 5 mg tablet 10 mg PO DAILY blood pressure 04/14/23 nitroglycerin 0.4 mg sublingual tablet 0.4 mg sublingual Q5M PRN chest pain 04/14/23 compress.stocking,knee,reg,lrg #2 ea 04/15/23 flash glucose sensor (Koubei.comStyle Tiffanie 2 Sensor kit) #2 ea 04/15/23 semaglutide 1 mg/dose (4 mg/3 mL) subcutaneous pen injector (Ozempic) 1 mg subcut QWEEK 04/26/23 oxycodone 5 mg tablet 5 mg PO Q4H PRN PRN Pain Score 6-10 3 days #20 tabs 04/29/23 ferrous sulfate 325 mg (65 mg iron) tablet 325 mg PO DAILY supplement #90 tabs 05/19/23 furosemide 40 mg tablet 40 mg PO DAILY water pill #30 tabs 05/19/23 paroxetine HCl 40 mg tablet 40 mg PO DAILY mood #30 tabs 05/19/23 metoprolol succinate 50 mg tablet,extended release 24 hr 50 mg PO Q12H blood pressure 05/30/23 hydralazine 25 mg tablet 25 mg PO TID #90 tabs 05/31/23 pantoprazole 40 mg tablet,delayed release 40 mg PO DAILY #90 tabs 06/01/23 pantoprazole 40 mg tablet,delayed release 40 mg PO DAILY Stomach #30 tabs 06/01/23 sucralfate 1 gram tablet 1 g PO .QID 90 days #360 tabs 06/01/23 sucralfate 1 gram tablet 1 g PO .QID stomach 30 days #120 tabs 06/01/23 potassium chloride 20 mEq tablet,extended release(part/cryst) 20 meq PO BID 06/07/23 lidocaine 5 % topical patch 1 patch topical DAILY #15 ea 06/08/23 Hospital Course Operations None Procedures - (X-ray right knee) Summary of Care Provided Minutes Spent on Discharge: 25 Hospital Course: Mr. Teixeira is a 67-year-old white male who presented to the emergency department at [facility] early on the morning of 06/07/2023 complaining of chest pain. He had extensive cardiac workup in the emergency department and was found to be unremarkable. He does have known coronary disease and had recent cardiac catheterization is on medical therapy and following with cardiology. He also was recently diagnosed with sick sinus syndrome and there is plans for pacemaker placement on Monday. I was called by the nurse practitioner from the cardiology office to assist her in coordinating care for this if the patient required placement. He was being discharged home from the emergency department but was unable to ambulate due to pain in his right knee so he came back into the emergency department stating he be needed to be placed in a nursing facility for rehab. He reported that he was unable to take care of himself because he lives alone and stated that he had been having ongoing knee pain for some time however on Monday he stood up and twisted and had increased pain since that time with progressive worsening of pain in the joint. He has had previous x-rays that show R3 arthritis and moderate joint effusion. On presentation his vital signs are unremarkable. His CBC showed showed a stable normocytic anemia with mildly elevated white count of 11.6 and a left shift. He did have a monocytosis at presentation but was asymptomatic with regards to any signs of illness. His chemistry panel revealed mild hypokalemia with a potassium of 3.3 and a stable serum creatinine 1.8. His blood glucose was 176. His cardiac enzymes were cycled with an initial and delta and they were 38 and 37 respectively. He is EKG was unchanged from previous and he had no ST-T wave changes concerning for acute ischemia. Chest x-ray was unremarkable. X-ray of the right knee demonstrated degenerative arthrosis, small joint effusion and vascular calcification. Degenerative arthrosis with severe in the medial compartment and severe in the patellofemoral articulation with only mild abnormality in the lateral femorotibial compartment. He was admitted as an observation to the medical floor in anticipation of placement. His pain was treated with scheduled Tylenol and topical lidocaine as well as ice and elevation. His electrolytes were replaced. He was seen by physical and Occupational Therapy and was able to move fairly well. He ambulated 100 feet the first day he was seen on 130 feet the second day he was seen with a wheeled walker and was deemed not appropriate for skilled rehab. I did let the nurse practitioner at his cardiology office know that he would not be placed and she stopped by to see him in the hospital to discuss pacemaker placement on Monday and was given discharge instructions with regards to pacemaker placement to be done on Monday. I have asked him to follow-up with his primary care physician within the next month and strongly advised him to see orthopedic surgery. He will not currently be a surgical candidate due to everything that is going on from a medical standpoint however in the future he may be and they may be able to do injections that may give him some temporary relief in the short-term. He will be getting outpatient home health care physical therapy and nursing services as he is currently homebound due to lack of transportation. Patient was discharged home in stable condition on 06/08/2023. Discharge diagnoses: Right knee pain secondary to osteoarthritis Small right joint effusion at the knee Chronic anemia secondary to chronic renal disease Paroxysmal atrial fib Sick sinus syndrome History of GI bleed secondary to gastric ulcer CKD stage IIIb FAVIAN CAD Hypertension Hyperlipidemia Secondary pulmonary hypertension History of DVT/PE DM-2 History of hypercalcemia secondary to hyperparathyroidism Chronic pain Depression Anxiety Obesity Physical Exam Const alert, oriented x3, no apparent distress and well nourished; Negative for average body habitus Constitutional Narrative: Obese, upper middle-aged, white male, sitting up in a chair at the bedside watching television, appears older than stated age, does not appear toxic General Appearance: cooperative, comfortable, well kempt and well developed HEENT normocephalic, head/scalp atraumatic, hearing grossly normal bilaterally and moist oral mucous membranes HEENT Narrative: Mallampati 3, no thrush Resp normal respiratory effort, no retractions, no use of accessory muscles and clear to auscultation bilaterally Auscultation: Negative for rales, rhonchi or wheezes Cardio regular rate, regular rhythm, S1 normal heart sound, S2 normal heart sound, no murmurs, no rub, no gallops and no clicks GI normal to inspection, nondistended, normoactive bowel sounds, soft to palpation and non-tender Extremity Extremity Narrative: Bilateral lower extremity edema that is pitting in 1-2+ in nature-patient states this is chronic, no cyanosis or clubbing, right knee with mild joint effusion and decreased active and passive range of motion, joint changes consistent with osteoarthritis Neuro oriented x3, moves all extremities and no focal motor deficits Speech: speech normal Psych affect normal Psych Narrative: Interacts appropriately, eye contact is good, patient is pleasant Weight / BMI Weight Weight: 107.9 kg Body Mass Index (BMI) 34.1 ABG / Lab / Microbiology Data 06/08/23 06:30 06/08/23 06:30 Laboratory: Laboratory Results - last 24 hr 06/07/23 16:50: POC Glucose 143 H 06/08/23 06:30: WBC 7.6, RBC 3.95 L, Hgb 10.3 L, Hct 33.7 L, MCV 85.3, MCH 26.1 L, MCHC 30.6 L, RDW Std Deviation 51.9 H, RDW Coeff of Thao 16.5 H, Plt Count 256, MPV 9.7, Immature Gran % (Auto) 0.500, Neut % (Auto) 77.0 H, Lymph % (Auto) 5.1 L, Stewart % (Auto) 15.8 H, Eos % (Auto) 1.1, Baso % (Auto) 0.5, Absolute Neuts (auto) 5.9, Absolute Lymphs (auto) 0.39 L, Nucleated RBC % 0, Differential Comment SCANNED, Sodium 137, Potassium 3.3 L, Chloride 108 H, Carbon Dioxide 25.0, Anion Gap 4 L, BUN 25 H, Creatinine 1.80 H, Estim Creat Clear Calc 49.65, Est GFR (MDRD) Af Amer 49 L, Est GFR (MDRD) Non-Af 40 L, BUN/Creatinine Ratio 13.9, Glucose 171 H, Calcium 10.3 H, Phosphorus 2.3 L, Magnesium 1.8, Total Bilirubin 1.20 H, AST 16, ALT 19, Alkaline Phosphatase 59, Total Protein 6.6, Albumin 3.2, Globulin 3.4, Albumin/Globulin Ratio 0.9 06/08/23 06:49: POC Glucose 173 H Radiography Diagnostic Testing: Radiology Impression Chest X-Ray 06/07/23 03:34 IMPRESSION: No radiographic evidence of acute cardiopulmonary disease. Electronically Signed: Brown Russ MD at 4:26 EST Reading Location ID and State: [address] [place] [address] Tel , Service support , D/C Instructions Discharge Diet: Low fat / Low cholesterol and 1800 Calorie Control Diet Discharge Activity: Return to Normal Activity and Use Walker Meaningful Use Info Meaningful Use Diagnoses (Choose all that apply): None applicable Discharge Plan Admission Admit Date/Time: 06/07/23 09:26 Primary Reason for Your Visit: Inability to ambulate/right knee pain Attending Provider: Cornelia Burns Primary Care Provider: Mery Raymond Instructions Patient Instructions: ED Chest Pain, Uncertain Cause Additional Instructions / Restrictions: 1. Please take Tylenol 1000 mg 3 times a day to help with your knee pain but do not exceed this amount 2. Please call to set up an appointment to see orthopedic surgery to address your pain further and obtain more definitive management 3. Use ice as needed and keep leg elevated when at rest Discharge Orders/Prescriptions Prescriptions: New lidocaine 5 % Adhesive Patch,Medicated 1 patch topical DAILY Qty: 15 1RF Protocol: *Topical Application Instructions APPLICATION INSTRUCTIONS: Right knee Rx Instructions: For use on right knee Continued (DME) Handicap Placard See Rx Instructions .ROUTE .MEDSUPPLY Qty: 1 0RF Rx Instructions: As directed, length of time 3 years (DME) FreeStyle Tiffanie 2 Mabie [facility] See Rx Instructions .ROUTE .MEDSUPPLY Qty: 1 0RF Rx Instructions: As directed (DME) OneTouch Verio test strips Strip See Rx Instructions .ROUTE .MEDSUPPLY Qty: 100 12RF Rx Instructions: test 3 times daily cinacalcet 30 mg tablet 30 mg PO BID Qty: 60 8RF metoprolol succinate 50 mg tablet extended release 24 hr 50 mg PO Q12H Patient Comments: TAKE 1 TABLET BY MOUTH TWICE DAILY FOR BLOOD PRESSURE nitroglycerin 0.4 mg tablet, sublingual 0.4 mg sublingual Q5M PRN (Reason: chest pain) Rx Instructions: do not exceed 3 doses per episode albuterol sulfate 90 mcg/actuation HFA aerosol inhaler 2 puff inhalation Q6H PRN (Reason: shortness of breath or wheezing) amlodipine 5 mg tablet 10 mg PO DAILY (DME) compress.stocking,knee,reg,lrg Misc See Rx Instructions .ROUTE .MEDSUPPLY Qty: 2 0RF Rx Instructions: Apply first thing in AM before ambulation (DME) [employer] Tiffanie 2 Sensor Kit See Rx Instructions .ROUTE .MEDSUPPLY Qty: 2 6RF Rx Instructions: As directed hydralazine 25 mg tablet 25 mg PO TID Qty: 90 2RF Ozempic 1 mg/dose (4 mg/3 mL) pen injector 1 mg SUBCUT QWEEK Patient Comments: INJECT 1MG (0.75ML) SUBCUTANEOUSLY EVERY WEEK oxycodone 5 mg Tablet 5 mg PO Q4H PRN PRN (Reason: Pain Score 6-10) 3 Days Qty: 20 0RF potassium chloride 20 mEq tablet,ER particles/crystals 20 meq PO BID Patient Comments: TAKE ONE (1) TABLET BY MOUTH TWICE DAILY FOR POTASSIUM (DME) pen needle, diabetic [BD Ultra-Fine Lorie Pen Needle] 32 gauge x 5/32 needle See Rx Instructions .ROUTE .MEDSUPPLY Qty: 360 5RF Rx Instructions: 4x/day clopidogrel 75 mg tablet 75 mg PO DAILY Qty: 90 3RF fenofibrate micronized 200 mg capsule 200 mg PO DAILY Qty: 30 12RF losartan 25 mg tablet 25 mg PO DAILY Qty: 90 3RF Hold Instructions: until you see nephrology ranolazine 500 mg tablet extended release 12 hr 500 mg PO BID Qty: 180 3RF ferrous sulfate 325 mg (65 mg iron) tablet 325 mg PO DAILY Qty: 90 1RF furosemide 40 mg tablet 40 mg PO DAILY Qty: 30 1RF paroxetine HCl 40 mg tablet 40 mg PO DAILY Qty: 30 1RF pantoprazole 40 mg tablet,delayed release (DR/EC) 40 mg PO DAILY Qty: 30 0RF Rx Instructions: recently decreased from BID pantoprazole 40 mg tablet,delayed release (DR/EC) 40 mg PO DAILY Qty: 90 1RF sucralfate 1 gram tablet 1 g PO .QID 90 Days Qty: 360 1RF sucralfate 1 gram tablet 1 g PO .QID 30 Days Qty: 120 0RF Referrals / Follow Up: Robb Hua MD [Med Staff - Active Staff] - 06/16/23 8:30 am (Pacer Placed with Dr. Hua. [facility] will pick patient up at 08:30 am.) Mery Raymond MD [Primary Care Provider] - Within 1 Month Stephanie Schultz PA [Med Staff - Adv Practice Prof] - 06/12/23 1:00 pm (With Lily Kearns. [facility] will pick patient up at 12:30PM. ) Disposition Disposition (needs filled in before D/C Order can be placed): Home Health Service Charges/Coding Visit Charges Inpatient E&M: 71295 Disch Hosp
[2023-06-08 12:21] LABS: Bedside Glucose 214 mg/dL (74-106)
--- NOTE | 2023-06-08 13:17 | CASEMGMT ---
Patient has order for discharge. Patient did well with therapy ambulating 130ft contact guard. RN CM in to discuss needs at discharge. Patient is active with [facility] and will return home with resumption of HHC. Patient concerned with getting in to apartment as walker is in his apartment. Patient states he has nephew but is sometimes not willing to help and asked this CM to call nephew. RN CM call nephew Don. Don states his just got off work and will be able to pick patient up. Don voiced concern for patient and inquired about assisted living. RN CM updated that SW had discussed assisted living with patient. RN CM encouraged nephew to discuss with patient, Don voiced understanding. RN CM in to updated patient regarding family picking him up. RN CM also encouraged patient to have further discussion with nephew regarding assisted living, patient voiced understanding.
--- NOTE | 2023-06-08 13:33 | CASEMGMT ---
Discharge Planning Resumption of HH referral and discharge summary sent via [facility] to [facility]. Jennifer Stringer, Discharge Planning Asst.
== END 2023-06-08 15:09 | disposition home health service (06) ==
LOC: ED 06:32 → PCU 09:52
PROVIDERS: Admitting Provider Internal Medicine; Emergency Provider Emergency Medicine; PCP Internal Medicine; Visit Provider Internal Medicine
DX: S83.91XA Sprain of unspecified site of right knee, initial encounter (principal); I13.0 Hypertensive heart and chronic kidney disease with heart failure and stage 1 through stage 4 chronic kidney disease, or unspecified chronic kidney disease; I50.32 Chronic diastolic (congestive) heart failure; I27.21 Secondary pulmonary arterial hypertension; E11.22 Type 2 diabetes mellitus with diabetic chronic kidney disease; I49.5 Sick sinus syndrome; I48.0 Paroxysmal atrial fibrillation; N18.32 Chronic kidney disease, stage 3b; M25.461 Effusion, right knee; E87.6 Hypokalemia; F41.9 Anxiety disorder, unspecified; I25.10 Atherosclerotic heart disease of native coronary artery without angina pectoris; G47.33 Obstructive sleep apnea (adult) (pediatric); R53.81 Other malaise; R53.1 Weakness; Z79.02 Long term (current) use of antithrombotics/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; M19.90 Unspecified osteoarthritis, unspecified site; R26.2 Difficulty in walking, not elsewhere classified; D72.821 Monocytosis (symptomatic); E66.9 Obesity, unspecified; E78.00 Pure hypercholesterolemia, unspecified; D63.1 Anemia in chronic kidney disease; Z79.899 Other long term (current) drug therapy; R07.9 Chest pain, unspecified; X50.1XXA Overexertion from prolonged static or awkward postures, initial encounter; F32.A Depression, unspecified; G89.29 Other chronic pain; Z68.32 Body mass index [BMI] 32.0-32.9, adult; Z86.718 Personal history of other venous thrombosis and embolism; Z86.711 Personal history of pulmonary embolism
CPT/HCPCS: 36415; 71045; 73560; 80048; 80053; 82962; 83735; 84100; 84484; 85025; 93005; 94002; 94668; 96365; 96366; 96372; 96375; 97162; 97166; 97530; 99221; 99285; J7050; A4216; G0378

== ENCOUNTER → 2023-06-08 | Outpatient (CLI) | payer MEDICARE, SELFPAY ==
[2023-03-13 16:01] VITALS: BMI 43.3
--- OUTSIDE RECORDS SUMMARY | 2023-06-08 20:24 | XMS RPT_ITS | CCD ---
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) use of insulin / Z79.4(ICD-10) Onset: [...] Unclassified (1 source) Athscl heart disease of [place] coronary artery w/o ang pctrs / I25.10(ICD-10) [...] / Z68.41(ICD-10) Onset: 11-07-2017 Unclassified (1 source) intermediate (current) use of antithrombotics/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 / Z79.02(ICD-10) [...] Evaluation and management of inpatient AIMEE SOOD Facility:[facility] Start: 10-25-2017 Patient encounter AIMEECHOCO Mcpherson Facility:[facility] Start: 10-10-2017 Patient encounter AIMEE Mcpherson Facility:[id number] Start: 08-22-2017 Patient encounter AIMEE Mcpherson Facility:[id number] Start: 08-07-2017 End: 08-07-2017 Patient encounter AIMEE SOOD Facility:[facility] Start: 08-07-2017 Patient encounter Liam Susanmariana Alfred Facility:[facility] Start: 07-31-2017 Patient encounter AIMEECHOCO Mcpherson Facility:[facility] Start: 06-15-2017 End: 06-15-2017 Patient encounter Jeane Beth Facility:[facility] Start: 06-15-2017 Emergency department visit limited/minor prob AIMEE SOOD [facility] Start: 06-15-2017 End: 06-15-2017 Patient encounter AIMEE SOOD Facility:[facility] Start: 06-12-2017 Patient encounter AIMEE Say Mcpherson Facility:[facility] Start: 06-12-2017 Patient encounter AIMEE Mcpherson Facility:[facility] Procedures Date Procedure Procedure Detail Performing Clinician [...] SOOD Payers Date Payer Category Payer Medicare [id number] Unknown [id number] Summary Purpose Family History No Family History Records FoundNo Family History Records Found Advance Directives No Advanced Directives Records FoundNo Advanced Directives Records Found Additional Source Comments (unrecognized sect ion and content) No Status Records FoundNo Status Records Found INFORMATION SOURCE (unrecogn ized section and content) DATE CREATED AUTHOR AUTHOR'S GOLDIE HILLS 01/31/2018 [facility] [...] BE BASED ON THE PRIMARY CLINICAL RECORDS. [facility]. provides no warranty or guarantee of the accuracy or completeness of information in this document.
== END | disposition home or self-care (01) ==
LOC: SL 12:59
PROVIDERS: PCP Internal Medicine; Visit Provider Internal Medicine Critical Care Medicine
DX: Z00.00 Encounter for general adult medical examination without abnormal findings (principal)

== ENCOUNTER 2023-06-19 12:15 | Observation (INO) | payer MEDICARE, SELFPAY ==
[2023-03-13 16:01] VITALS: BMI 43.3
[2023-06-12 14:06] LABS: Bacteria 0 SEEN /hpf (None Seen); Mucous, Urine 0 SEEN /hpf (<or=2+); Red Blood Cells-Urine 0 SEEN /hpf (0-5); Squamous Epithelial Cells - UA 0 SEEN /hpf (0-5)
[2023-06-12 15:26] LABS: Color, Urine Yellow (Yellow); Glucose, Dipstick 50 mg/dl (Normal); Ketone-Dipstick Negative (Negative); Leukocyte Esterase-Dipstick 100 /ul (Negative); Nitrite-Dipstick Negative (Negative); Occult Blood-Urine 10 /ul (Negative); Protein-Dipstick 100 mg/dl (Negative); Specific Gravity, Urine 1.015 (1.002-1.030); Urine Bilirubin Dipstick Negative (Negative); Urine Clarity Clear (Clear); Urine Urobilinogen 1 mg/dl (Normal)
[2023-06-12 15:36] LABS: International Normalized Ratio 1.1; Prothrombin Time (Protime)PT. 14.2 SECONDS (11.7-14.9)
[2023-06-12 15:44] LABS: Anion Gap 4 (5-15); BUN 37 mg/dL (7-18); BUN/Creat Ratio 21.6 RATIO (10-20); Calcium,Total 10.3 mg/dL (8.5-10.1); Chloride 106 mmol/L (98-107); Creatinine, Serum 1.71 mg/dL (0.70-1.30); EST Glomerular Filtration Rate 43 mL/min (>60); Est Glom Filt Rate - Afr Amer 52 mL/min (>60); Glucose 152 mg/dL (74-106); Potassium 3.6 mmol/L (3.5-5.1); Sodium Level 138 mmol/L (136-145)
[2023-06-12 15:54] LABS: White Blood Cells 0-5 SEEN /hpf (0-5)
[2023-06-16 07:58] VITALS: BMI 33.7
[2023-06-19] VITALS (13 sets, daily range): BP systolic 127–156; BP diastolic 80–95; PULSE 70–92; RESP 17–26; TEMP 36.6–36.8; O2SAT 86–97; BMI 34.4
--- OUTSIDE RECORDS SUMMARY | 2023-06-19 08:30 | XMS RPT_ITS | CCD ---
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) use of aspirin / Z79.82(ICD-10) Onset: 08-07-2017 Unclassified (1 source) group home (current) use of insulin / Z79.4(ICD-10) Onset: [...] Unclassified (1 source) Athscl heart disease of [place] coronary artery w/o ang pctrs / I25.10(ICD-10) [...] / Z68.41(ICD-10) Onset: 11-07-2017 Unclassified (1 source) group home (current) use of antithrombotics/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 / Z79.02(ICD-10) [...] Evaluation and management of inpatient AIMEE SOOD Facility:[facility] Start: 10-25-2017 Patient encounter AIMEECHOCO Mcpherson Facility:[facility] Start: 10-10-2017 Patient encounter AIMEE Mcpherson Facility:[id number] Start: 08-22-2017 Patient encounter AIMEE Mcpherson Facility:[id number] Start: 08-07-2017 End: 08-07-2017 Patient encounter AIMEE SOOD Facility:[facility] Start: 08-07-2017 Patient encounter Liam Susanmariana Alfred Facility:[facility] Start: 07-31-2017 Patient encounter AIMEECHOCO Mcpherson Facility:[facility] Start: 06-15-2017 End: 06-15-2017 Patient encounter Jeane Beth Facility:[facility] Start: 06-15-2017 Emergency department visit limited/minor prob AIMEE SOOD [facility] Start: 06-15-2017 End: 06-15-2017 Patient encounter AIMEE SOOD Facility:[facility] Start: 06-12-2017 Patient encounter AIMEE Say Mcpherson Facility:[facility] Start: 06-12-2017 Patient encounter AIMEE Mcpherson Facility:[facility] Procedures Date Procedure Procedure Detail Performing [...] SOOD Payers Date Payer Category Payer Medicare [id number] Unknown [id number] Summary Purpose Family History No Family History Records FoundNo Family History Records Found Advance Directives No Advanced Directives Records FoundNo Advanced Directives Records Found Additional Source Comments (unrecognized sect ion and content) No Status Records FoundNo Status Records Found INFORMATION SOURCE (unrecogn ized section and content) DATE CREATED AUTHOR AUTHOR'S GOLDIE HILLS 01/31/2018 [facility] FOR RECORDS PERTAINING TO PATIENTS WHO [...] BASED ON THE PRIMARY CLINICAL RECORDS. [facility] [facility]. provides no warranty or guarantee of the accuracy or completeness of information in this document.
--- NOTE | 2023-06-19 12:12 | CL.IE_ITS ---
Patient: ELIANE KAY Study Date: 06/19/2023 Performing: Robb Hua MD : [id number] Age: 67 Gender: male PROCEDURES PERFORMED [id number]-([id number])INITIAL PACER INSERT+DUAL LEADS INDICATIONS Sinoatrial node dysfunction/Sick sinus syndrome PROCEDURE DETAILS The patient was brought to the Catheterization Lab in the postabsorptive nonsedated state. Informed consent was obtained prior to the procedure. Local anesthetic was given subcutaneously to the left upper chest area with Lidocaine 2%. Access was achieved and a guidewire was advanced into the left subclavian vein. A peel-away sheath was inserted into the left subclavian vein. PPM ventricular lead was inserted / positioned to right ventricular apex. PPM ventricular lead testing performed. PPM ventricular lead testing performed. PPM atrial lead was inserted / positioned to the right atrial appendage. PPM atrial lead testing performed. Device pocket was irrigated with antibiotic. PPM generator was attached to the lead(s) and inserted into the pocket. Subcutaneous closure was completed. Skin closure was completed with 4-0 Vicryl. Instrument, sponge, and needle counts were noted to be normal. The patient tolerated the procedure well. Estimated Blood Loss: < 10 mls IMPLANTED / EX-PLANTED DEVICES IMPLANTED DEVICE(S): PPM Generator - Disaster Recovery Analyst: [employer], Model # L111 , Serial # [id number] PPM Atrial lead - Disaster Recovery Analyst: [employer], Model # 7841 , Serial # [id number] PPM Ventricular lead - Disaster Recovery Analyst: [employer], Model # 7842 , Serial # [id number] DEVICE PARAMETERS ATRIAL LEAD PARAMETERS: P wave- 1.2 (mV) threshold- 518 (V) VENTRICULAR LEAD PARAMETERS: R wave- 25 (mV) Current- .7 (mA) threshold- .6 (V) impedence- 817 (OHMS) DEVICE PARAMETERS: Mode- ddd Lower rate- 60 Upper rate- 130 CONCLUSIONS / RECOMMENDATIONS Device Conclusions: Successful implantation of a dual chamber pacemaker Device Recommendations: Follow up with Primary Care Physician PROCEDURE MEDICATIONS Versed 1 mg IV Fentanyl 50 mcg IV Versed 1 mg IV Fentanyl 25 mcg IV Versed 1 mg IV Oxygen: 2 L/min via nasal cannula Ancef 2 Gm IV @ 06/19/2023 10:39:14 Signed By Robb Hua MD On 06/19/2023 12:11:47 Robb Hua MD
[2023-06-19] MEDS: hydrALAZINE 25 MG Tablet PO ×2 (15:30→21:24)
[2023-06-19] MEDS: oxyCODONE 5 MG Tablet PO ×2 (15:31→21:28)
[2023-06-19] MEDS: Potassium Chloride Oral Tablet 20 MEQ PO (16:54)
[2023-06-19] MEDS: Sucralfate 1 GM Tablet PO ×2 (16:54→21:27)
[2023-06-19] MEDS: Ranolazine 500 MG Tablet PO (21:27)
[2023-06-19] MEDS: Metoprolol(XL)Succ 50 MG Tablet PO (21:28)
[2023-06-19] MEDS: Cinacalcet HCl 30 MG Tablet PO (21:28)
[2023-06-19] MEDS: Ipratropium/Albuterol Sulfate 3 ML AMPUL.NEB INHALATION (22:35)
[2023-06-19] MEDS: 0.9% Saline Lock 10 ML Syringe IV (23:19)
[2023-06-19] MEDS: Furosemide 40 MG/4 ML Vial IV (23:19)
[2023-06-20] VITALS (12 sets, daily range): BP systolic 141–165; BP diastolic 72–98; PULSE 81–94; RESP 14–20; TEMP 36.3–36.9; O2SAT 93–97; BMI 34.3
[2023-06-20] MEDS: oxyCODONE 5 MG Tablet PO ×5 (01:24→20:51)
--- NOTE | 2023-06-20 02:12 | PN.HOSP_ITS ---
Reason for Visit Reason for Visit: Diagnoses Hypokalemia (06/19/23) Sick sinus syndrome (06/19/23) Subjective Subjective I was called by the BEAUTY OPERATOR that patient was SOB and was in need of Lasix after a recent PPM placement. An order for Lasix was given but the hospitalist service was not on the case as the patient was admitted to the patient services technician's service. Then when the BEAUTY OPERATOR spoke to the patient services technician on-call he requested a hospitalist consult for 'medical management' with Lasix already given and patient having clinically improved with no other complaints and anticipated potential discharge in the AM. His input was 640 mL with output of 1,350 mL with a fluid balance of -710 mL and a weight of 239#. Thank you for allowing us to participate in the care of your patient. Objective Data Objective Data Vital Signs: Vital Signs Temp Pulse Resp BP Pulse Ox O2 Del Method O2 Flow Rate 97.8 F 92 26 H 149/95 H 92 Nasal Cannula 5 06/19/23 14:54 06/19/23 22:41 06/19/23 22:41 06/19/23 21:28 06/19/23 22:41 06/19/23 22:41 06/19/23 22:41 Oxygen Flow Rate (L/min) 5 Oxygen Delivery Method Nasal Cannula Weight: 239 lb 10.279 oz Body Mass Index (BMI) 34.4 Intake & Output: Intake and Output for Last 24 Hours 06/18/23 06/19/23 06/20/23 23:59 23:59 23:59 Intake Total 440 / 440 Output Total 350 / 350 Balance 90 / 90 Lab / Micro Data Attestation: I reviewed the patient's lab results. 06/12/23 13:55 Physical Exam Const alert, oriented x3 and no apparent distress Constitutional Narrative: Obese. General Appearance: cooperative Orientation / Consciousness: awake, oriented to person, oriented to place and oriented to time Nutritional Appearance: obese HEENT normocephalic and head/scalp atraumatic Head and Scalp: normal to inspection, normocephalic and atraumatic Eyes PERRL and EOMs intact bilaterally Neck full ROM and nuchal rigidity Chest Chest Narrative: Evidence of recent PPM implantation. Resp Resp Narrative: Patient has diminished breath sounds with scattered rhonci Cardio regular rate and regular rhythm GI normal to inspection, nondistended, normoactive bowel sounds, soft to palpation, non-tender and non-distended Extremity normal to inspection Skin no rashes or lesions noted Neuro oriented x3, CN's II-XII intact bilaterally, moves all extremities and no focal motor deficits Psych mental status grossly normal, thought process normal, cooperative, affect normal, speech normal and activity/motor behavior normal Assessment & Plan Assessment/Plan (1) Essential hypertension: (2) Type 2 diabetes mellitus: QUALIFIERS: Diabetes mellitus joint terminal attack controller insulin use: with senior living use Diabetes mellitus complication status: with hyperglycemia Qualified Code(s): E11.65 - Type 2 diabetes mellitus with hyperglycemia; Z79.4 - shelter (current) use of insulin (3) Pure hypercholesterolemia: (4) Sick sinus syndrome: PLAN: Plan 1. Medical Management Consult after PPM to treat SSS with patient requiring Lasix x 1 - Continue Lasix as already ordered. Check CXR and BNP in the AM to see if more Lasix will potentially need to be given. Also check CBC and BMP to ensure good blood counts and electrolyte levels prior to anticipated discharge. Continue other medications as per patient services technician's plan. 2. Essential Hypertension - Continue current regimen. 3. Hyperlipidemia - Resume statin. 4. GERD; with history of PUD - Continue PPI and Sucralfate. 5. Obesity; with BMI of 34.3 this admission and FAVIAN - Weight loss will be recommended. Continue CPAP. 6. DM-2; of unknown control - ADA diet. FSBS q. AC/HS plus SSI. 7. CKD; stage IIIb - Stable. 8. History of DVT/PE - Noted. 9. DVT prophylaxis - As per patient services technician. Total time: Approximately 35 minutes. Charges/Coding Visit Charges Inpatient E&M: 61866 Subs Hosp L2
--- NOTE | 2023-06-20 05:55 | RAD_ITS ---
EXAM: XR CHEST, 3 VIEWS CLINICAL INDICATION: Post permanant ICD/Pacemaker -- inspiration/expiration. Arms Down. Wet read to MD TECHNIQUE: Frontal, lateral and one additional view of the chest. COMPARISON: 04/28/2023. FINDINGS: LUNGS AND PLEURAL SPACES: Low lung volumes limit the exam. No consolidations. No pneumothorax. No effusion. HEART: Unremarkable. Cardiac silhouette not enlarged. MEDIASTINUM: Central airways and mediastinal contour are unremarkable. BONES/JOINTS: Unremarkable. No acute fracture. SOFT TISSUES: Unremarkable. TUBES, LINES AND DEVICES: Pacemaker leads in good position. RAD/Chest 3 View IMPRESSION: 1. Low lung volumes limit the exam. No consolidations. 2. No acute cardiopulmonary abnormality. Electronically Signed: Adrian Quispe MD at 5:41 EDT ,
[2023-06-20] MEDS: Sucralfate 1 GM Tablet PO ×3 (06:34→22:14)
[2023-06-20] MEDS: hydrALAZINE 25 MG Tablet PO ×3 (06:38→22:15)
--- NOTE | 2023-06-20 07:33 | NURSING ---
Pt. complaining of shortness of breath and pt. stated that he had not taken his daily dose of lasix d/t his pacemaker placement. Contacted Dr. Becerra. Ordered prn duonebs q6h and 1x dose of 40 mg IV lasix. Pt. also placed on o2 via nasal cannula- needed 6L @ first. After lasix began diuresing, Pt. was weaned down to 2L NC. Pt. diuresed approx. 2.5L urine. Pt. stated he felt much better and that he was not short of breath anymore.
--- NOTE | 2023-06-20 07:39 | NURSING ---
pt. surgical dressing changed d/t being saturated with serosanguineous drainage. Upon removing old dressing, steristrips intact, no active drainage noted. Gauze 4x4s and tegaderm put in place over surgical site.
--- NOTE | 2023-06-20 07:55 | PCM.PN.HOSP ---
Reason for Visit Reason for Visit: Diagnoses Type 2 diabetes mellitus with hyperglycemia (06/19/23) Pure hypercholesterolemia, unspecified (06/19/23) Hypokalemia (06/19/23) Essential (primary) hypertension (06/19/23) Sick sinus syndrome (06/19/23) care home (current) use of insulin (06/19/23) Objective Data Objective Data Vital Signs: Vital Signs Temp Pulse Resp BP Pulse Ox O2 Del Method O2 Flow Rate 98.5 F 85 18 165/98 H 97 Nasal Cannula 2 06/20/23 06:20 06/20/23 06:38 06/20/23 06:20 06/20/23 06:38 06/20/23 06:20 06/20/23 06:20 06/20/23 06:20 Oxygen Flow Rate (L/min) 2 Oxygen Delivery Method Nasal Cannula Weight: 239 lb 3.225 oz Body Mass Index (BMI) 34.3 Intake & Output: Intake and Output for Last 24 Hours 06/18/23 06/19/23 06/20/23 23:59 23:59 23:59 Intake Total 440 / 640 500 / 500 Output Total 350 / 1350 1800 / 1800 Balance 90 / -710 -1300 / -1300 Lab / Micro Data 06/20/23 07:14 06/20/23 07:14 Radiography Diagnostic Testing: Radiology Impression Chest X-Ray 06/20/23 05:55 IMPRESSION: 1. Low lung volumes limit the exam. No consolidations. 2. No acute cardiopulmonary abnormality. Electronically Signed: Adrian Quispe MD at 5:41 EDT , Physical Exam Narrative Patient complained of joint pain in both knees and left shoulder. Asking to increase pain medication dosages. cafeteria monitor shows paced rhythm and well capturing of heart rates. Yesterday it was sometimes A-fib. Patient has history of sick sinus syndrome with sinus pauses sometimes 5.2 seconds as per the patient. Physical exam General: Alert, Oriented x3, Cooperative HEENT: Atraumatic, PERRLA, EOMI, Normocephalic Oral: Oral mucosa moist. No Gingival or Mucosal Lesions/ Ulcerations Neck: Supple, No JVD, Negative Carotid Bruits Chest wall/Lungs: Air entry diminished in bilateral lung bases. No crepitation/rhonchi Cardiovascular: Rhythm paced, Normal S1, Normal S2, No M/G/R Abdomen: Bowel Sounds Present, Soft, Non Tender, Non-Distended : No dysuria. No renal angle tenderness. No suprapubic tenderness. Extremities: No edema, Capillary Refill Less than 3 Seconds Skin: No rashes, No breakdown Musculoskeletal: Tenderness present over bilateral knees and left shoulder. Surgical scar at both knees. ROM restricted at knees and left shoulder. Left shoulder after pacemaker on sling and swath Neurological: Cranial nerves II-XII grossly intact, DTR 2+/4. No acute focal neurological deficit. Psych/Mental Status: Normal Affect, Appropriate. Assessment & Plan Assessment/Plan (1) Essential hypertension: (2) Type 2 diabetes mellitus: QUALIFIERS: Diabetes mellitus complication status: with hyperglycemia Diabetes mellitus long chain quiller tender insulin use: with senior care use Qualified Code(s): E11.65 - Type 2 diabetes mellitus with hyperglycemia; Z79.4 - care home (current) use of insulin (3) Pure hypercholesterolemia: (4) Sick sinus syndrome: PLAN: Plan 67-year-old gentleman was admitted for planned/elective permanent pacemaker after diagnosed sick sinus syndrome with long sinus pauses. Patient also history of A-fib 1. Perioperative management after PPM for SSS with patient requiring Lasix x 1 - Continue Lasix as already ordered. Chest x-ray was done. No acute cardiopulmonary abnormality. No consolidation. No lung volumes. BNP 467. Patient not short of breath. Potassium 3.4. Potassium replaced. 2. Essential Hypertension - Continue current regimen. 3. Hyperlipidemia - Resume statin. 4. GERD; with history of PUD - Continue PPI and Sucralfate. 5. Obesity; with BMI of 34.3 this admission and FAVIAN - Weight loss will be recommended. Continue CPAP. 6. DM-2; of unknown control - ADA diet. FSBS q. AC/HS plus SSI. 7. CKD; stage IIIb -BUNs/creatinine 26/1.89. His creatinine is within his baseline range of 1.7-2.0 8. History of DVT/PE - Noted. 9. DVT prophylaxis - As per agent broker. Charges/Coding Visit Charges Inpatient E&M: 78609 Subs Hosp L2
[2023-06-20 08:05] LABS: Absolute Lymphocyte Count 0.38 X10^3/uL (0.83-4.51); Absolute Neutrophil Count 7.9 X10^3/uL (2.0-7.7); Basophil# 0.05 X10^3/uL; Basophil% 0.5 % (0-1); Eosinophils% 1.1 % (0-5); Hematocrit 34.3 % (40-54); Hemoglobin 10.5 g/dL (13.0-16.5); Lymphocyte # 0.38 X10^3/ul (0.83-4.51); Mean Corp Hgb Conc 30.6 g/dL (32-36); Mean Corpuscular Hgb 25.9 pg (27.0-32.0); Mean Corpuscular Volume 84.7 fL (80-94); Mean Platelet Vol. 9.4 fl (6.2-12.0); Monocyte# 1.05 X10^3/uL; NRBC Flagged by Analyzer 0 % (0-5); Neutrophil # 7.88 X10^3/uL (2.7-7.7); Neutrophil % 82.8 % (47-70); POSITIVE DIFFERENTIAL YES; Platelet Count 313 K/mm3 (150-450); RBC Distribution Width CV 16.2 % (11.6-14.6); RBC Distribution Width SD 50.1 fl (35.1-43.9); Red Blood Count 4.05 M/mm3 (4.6-6.2); White Blood Count 9.5 K/mm3 (4.4-11.0)
[2023-06-20] MEDS: amLODIPine 10 MG Tablet PO (08:22)
[2023-06-20] MEDS: Potassium Chloride Oral Tablet 20 MEQ PO (08:22)
[2023-06-20] MEDS: Ranolazine 500 MG Tablet PO ×2 (08:23→22:14)
[2023-06-20] MEDS: Cinacalcet HCl 30 MG Tablet PO ×2 (08:23→22:16)
[2023-06-20] MEDS: Furosemide 40 MG Tablet PO (08:23)
[2023-06-20] MEDS: Paroxetine 20 MG Tablet 40 MG PO (08:23)
[2023-06-20] MEDS: Pantoprazole Sodium 40 MG Tablet PO (08:23)
[2023-06-20] MEDS: Losartan Potassium 25 MG Tablet PO (08:24)
[2023-06-20] MEDS: Metoprolol(XL)Succ 50 MG Tablet PO ×2 (08:24→22:15)
[2023-06-20 08:25] LABS: Anion Gap 6 (5-15); BNP,B-Type NATRIURETIC PEPTIDE 467.9 pg/mL (0-100); BUN 26 mg/dL (7-18); BUN/Creat Ratio 13.8 RATIO (10-20); Calcium,Total 10.6 mg/dL (8.5-10.1); Chloride 108 mmol/L (98-107); Creatinine, Serum 1.89 mg/dL (0.70-1.30); EST Glomerular Filtration Rate 38 mL/min (>60); Est Glom Filt Rate - Afr Amer 46 mL/min (>60); Estimated Creatinine Clearance 47.42 ml/min; Glucose 138 mg/dL (74-106); Potassium 3.4 mmol/L (3.5-5.1); Sodium Level 141 mmol/L (136-145)
--- NOTE | 2023-06-20 08:45 | PN.CARD_ITS ---
Subjective Subjective Patient seen and evaluated. Appears to be doing well. Objective Data Vital Signs: Vital Signs Temp Pulse Resp BP Pulse Ox O2 Del Method O2 Flow Rate 98.3 F 81 14 147/87 H 96 Nasal Cannula 1 06/20/23 08:17 06/20/23 08:24 06/20/23 08:17 06/20/23 08:17 06/20/23 08:17 06/20/23 08:17 06/20/23 08:17 Oxygen Flow Rate (L/min) 1 Oxygen Delivery Method Nasal Cannula Weight: 239 lb 3.225 oz Body Mass Index (BMI) 34.3 Intake & Output: Intake and Output for Last 24 Hours 06/18/23 06/19/23 06/20/23 23:59 23:59 23:59 Intake Total 440 / 640 500 / 500 Output Total 350 / 1350 2700 / 2700 Balance 90 / -710 -2200 / -2200 Lab / Micro Data 06/20/23 07:14 06/20/23 07:14 Labs: Laboratory Results - last 24 hr 06/20/23 07:14: WBC 9.5, RBC 4.05 L, Hgb 10.5 L, Hct 34.3 L, MCV 84.7, MCH 25.9 L, MCHC 30.6 L, RDW Std Deviation 50.1 H, RDW Coeff of Thao 16.2 H, Plt Count 313, MPV 9.4, Immature Gran % (Auto) 0.600, Neut % (Auto) 82.8 H, Lymph % (Auto) 4.0 L, [place] % (Auto) 11.0 H, Eos % (Auto) 1.1, Baso % (Auto) 0.5, Absolute Neuts (auto) 7.9 H, Absolute Lymphs (auto) 0.38 L, Nucleated RBC % 0, Sodium 141, Potassium 3.4 L, Chloride 108 H, Carbon Dioxide 27.0, Anion Gap 6, BUN 26 H, Creatinine 1.89 H, Estim Creat Clear Calc 47.42, Est GFR (MDRD) Af Amer 46 L, Est GFR (MDRD) Non-Af 38 L, BUN/Creatinine Ratio 13.8, Glucose 138 H, Calcium 10.6 H, B-Natriuretic Peptide 467.9 H Cardiology Labs/Tests 06/20/23 07:14: WBC 9.5, RBC 4.05 L, Hgb 10.5 L, Hct 34.3 L, MCV 84.7, MCH 25.9 L, MCHC 30.6 L, Plt Count 313, MPV 9.4, Immature Gran % (Auto) 0.600, Neut % (Auto) 82.8 H, Lymph % (Auto) 4.0 L, [place] % (Auto) 11.0 H, Eos % (Auto) 1.1, Baso % (Auto) 0.5, Absolute Neuts (auto) 7.9 H, Nucleated RBC % 0, Sodium 141, Potassium 3.4 L, Chloride 108 H, Carbon Dioxide 27.0, Anion Gap 6, BUN 26 H, Creatinine 1.89 H, Est GFR (MDRD) Af Amer 46 L, Est GFR (MDRD) Non-Af 38 L, BUN/Creatinine Ratio 13.8, Glucose 138 H, Calcium 10.6 H, B-Natriuretic Peptide 467.9 H Rhythm: EKG: ECHO: Stress Test: Cardiac Cath: PCI: CT Surgery: Holter monitor: EPS: PPM: CXR: Chest CT Scan: Radiography Diagnostic Testing: Radiology Impression Chest X-Ray 06/20/23 05:55 IMPRESSION: 1. Low lung volumes limit the exam. No consolidations. 2. No acute cardiopulmonary abnormality. Electronically Signed: Adrian Quispe MD at 5:41 EDT , Assessment & Plan Assessment/Plan (1) Sick sinus syndrome: PLAN: Patient is status post permanent pacemaker implantation. Pacemaker appears to be functioning well. There is underlying atrial fibrillation. Patient be continued on rate limiting medication. X-ray demonstrates good positioning. Pacemaker interrogation demonstrates good functioning. The patient however requests that as he lives alone he wants to have a few more days of PT and OT and evaluation. Will put in for transitional care transfer. (2) Essential hypertension: PLAN: Patient has a history of hypertension. Will reinstitute current medical therapy. (3) Atherosclerosis of coronary artery of [place] heart without angina pectoris: QUALIFIERS: Coronary Disease-Associated Artery/Lesion type: [place] artery Qualified Code(s): I25.10 - Atherosclerotic heart disease of [place] coronary artery without angina pectoris PLAN: Patient has a history of atherosclerotic cardiovascular disease status post previous angioplasty and stenting. Will continue current medical therapy.
--- NOTE | 2023-06-20 08:54 | DCINST_ITS ---
Discharge Instructions Diet Discharge Diet: No restrictions (as you feel able. No excessive stretching. No lifting your arm over your head (keep elbow below shoulder level) until seen for your pacemaker check. Do not lift your elbow away from your side until you are seen for your first visit. Keep the arm sling on if it helps remind you not to lift your arm.) Activity Discharge Activity: May Not Drive May shower in (days): 2 Additional Activity Instructions:: May shower or bathe on [day 3]. Do not scrub the incision or soak in the tub. Just wash with soap and let the water run over the incision. Gently pat dry with towel. Medications: Take your pain medication as directed. Refer to your discharge instruction sheet for a list of medications you are to take. Dressing / Incision Call your doctor if your incision/area has: Continuous Slow Oozing, Sudden Increased Bleeding, Increased Pain/ Swelling, Increased Redness, Foul Smelling Discharge and Swelling at the incision site Call your doctor if you observe: Fever of 101 or Higher, Shortness of breath, Dizziness, Fainting spells, Swelling in the ankles, Chest pain, Prolonged hiccupping and Increased palpitations (irregular heartbeat) Suture Line Care: Avoid Pulling/Pushing and Avoid Pinching/Bending Additional Dressing/Incision Instructions:: When dressing is removed, wash and dry incision. Keep covered with a light bandage if it is rubbing against your clothing. Do not cover the incision with an airtight bandage. Change the bandage daily. Do not remove steri strips. The strips will fall off on their own. Follow Up Care Please Follow Up With: Robb Hua MD When: Pacemaker follow-up on June 26 at 9:30 AM. At the pacemaker clinic at the [facility]. Test Results: Test results from this visit will be discussed in further detail at your follow- up appointment, if applicable. Discharge Plan Admission Admit Date/Time: 06/19/23 12:15 Attending Provider: Robb Hua Primary Care Provider: Mery Raymond Consulting Providers: Kingsley Hollis Discharge Orders/Prescriptions Prescriptions: No Action (DME) Handicap Placard See Rx Instructions .ROUTE .MEDSUPPLY Qty: 1 0RF Rx Instructions: As directed, length of time 3 years (DME) FreeStyle Tiffanie 2 [place] Misc See Rx Instructions .ROUTE .MEDSUPPLY Qty: 1 0RF Rx Instructions: As directed (DME) OneTouch Verio test strips Strip See Rx Instructions .ROUTE .MEDSUPPLY Qty: 100 12RF Rx Instructions: test 3 times daily cinacalcet 30 mg tablet 30 mg PO BID Qty: 60 8RF nitroglycerin 0.4 mg tablet, sublingual 0.4 mg sublingual Q5M PRN (Reason: chest pain) Rx Instructions: do not exceed 3 doses per episode albuterol sulfate 90 mcg/actuation HFA aerosol inhaler 2 puff inhalation Q6H PRN (Reason: shortness of breath or wheezing) amlodipine 5 mg tablet 10 mg PO DAILY (DME) compress.stocking,knee,reg,lrg Misc See Rx Instructions .ROUTE .MEDSUPPLY Qty: 2 0RF Rx Instructions: Apply first thing in AM before ambulation (DME) FreeStyle Tiffanie 2 Sensor Kit See Rx Instructions .ROUTE .MEDSUPPLY Qty: 2 6RF Rx Instructions: As directed hydralazine 25 mg tablet 25 mg PO TID Qty: 90 2RF Ozempic 1 mg/dose (4 mg/3 mL) pen injector 1 mg SUBCUT QWEEK Patient Comments: INJECT 1MG (0.75ML) SUBCUTANEOUSLY EVERY WEEK oxycodone 5 mg Tablet 5 mg PO Q4H PRN PRN (Reason: Pain Score 6-10) 3 Days Qty: 20 0RF potassium chloride 20 mEq tablet,ER particles/crystals 20 meq PO BID Patient Comments: TAKE ONE (1) TABLET BY MOUTH TWICE DAILY FOR POTASSIUM lidocaine 5 % Adhesive Patch,Medicated 1 patch topical DAILY Qty: 15 1RF Protocol: *Topical Application Instructions APPLICATION INSTRUCTIONS: Right knee Rx Instructions: For use on right knee (DME) pen needle, diabetic [BD Ultra-Fine Lorie Pen Needle] 32 gauge x 5/32 needle See Rx Instructions .ROUTE .MEDSUPPLY Qty: 360 5RF Rx Instructions: 4x/day clopidogrel 75 mg tablet 75 mg PO DAILY Qty: 90 3RF fenofibrate micronized 200 mg capsule 200 mg PO DAILY Qty: 30 12RF losartan 25 mg tablet 25 mg PO DAILY Qty: 90 3RF Hold Instructions: until you see nephrology ranolazine 500 mg tablet extended release 12 hr 500 mg PO BID Qty: 180 3RF ferrous sulfate 325 mg (65 mg iron) tablet 325 mg PO DAILY Qty: 90 1RF furosemide 40 mg tablet 40 mg PO DAILY Qty: 30 1RF paroxetine HCl 40 mg tablet 40 mg PO DAILY Qty: 30 1RF pantoprazole 40 mg tablet,delayed release (DR/EC) 40 mg PO DAILY Qty: 30 0RF Rx Instructions: recently decreased from BID pantoprazole 40 mg tablet,delayed release (DR/EC) 40 mg PO DAILY Qty: 90 1RF sucralfate 1 gram tablet 1 g PO .QID 90 Days Qty: 360 1RF sucralfate 1 gram tablet 1 g PO .QID 30 Days Qty: 120 0RF metoprolol succinate 50 mg tablet extended release 24 hr 50 mg PO Q12H Qty: 60 11RF Referrals / Follow Up: Mery Raymond MD [Primary Care Provider] -
--- NOTE | 2023-06-20 10:30 | CASEMGMT ---
Discharge Planning Resumption HH referral sent to [facility]. Jennifer Stringer, Discharge Planning Asst.
--- NOTE | 2023-06-20 14:20 | CASEMGMT ---
SW noted therapy is recommending additional therapy and patient is agreeable for SNF. SW met with patient and confirmed [facility]. SW provided patient with a list of snf providers. Patient asked for a referral to be sent to [facility]. SW asked Jennifer to send the referral. Plan: [facility] pending insurance approval. Dipika Orr BENEFITS SALES CONSULTANT [place]
--- NOTE | 2023-06-20 14:28 | CASEMGMT ---
Addendum entered by Jennifer Stringer 06/20/23 15:26: Patient has been accepted by [facility] and precert will be submitted. SW updated. Jennifer Stringer, Discharge Planning Asst. Original Note: Discharge Planning A list of?SNF providers including quality and resource use data and consistent with the patient's preferred geographic region, medical needs, and insurance network was created in [employer].? This list was provided to the . Referral to [facility] [place] was sent via [facility]. Jennifer Stringer, Discharge Planning Asst.
--- NOTE | 2023-06-20 15:41 | CASEMGMT ---
Patient was approved for [facility]. SW will notify physician. Dipika Orr MSW [place]
--- NOTE | 2023-06-20 15:51 | PCM.TXEXTCAR ---
Diet Diet Order/Speech Therapy: 06/19/23 Lunch Diet: Cardiac - Heart Healthy Routine Orders/Code Status Suppository Type: Dulcolax 10mg Suppository Frequency: Daily PRN Wound(s) left chest: Wound Type: Surgical Incision Therapies Weight Bearing: Weight bearing as tolerated Extremity Affected:: Bilateral Lower and Left Upper Physical Therapy: Eval and Treat Occupational Therapy: Eval and Treat Speech Therapy: Eval and Treat Problem/Diagnosis (1) Essential hypertension: Status: Acute Code(s): I10 - Essential (primary) hypertension (2) Type 2 diabetes mellitus: Status: Chronic Code(s): E11.9 - Type 2 diabetes mellitus without complications (3) Pure hypercholesterolemia: Status: Chronic Code(s): E78.00 - Pure hypercholesterolemia, unspecified (4) Sick sinus syndrome: Status: Acute Code(s): I49.5 - Sick sinus syndrome Plan 67-year-old gentleman was admitted for planned/elective permanent pacemaker after diagnosed sick sinus syndrome with long sinus pauses. Patient also history of A-fib 1. Perioperative management after PPM for SSS with patient requiring Lasix x 1 - Continue Lasix as already ordered. Chest x-ray was done. No acute cardiopulmonary abnormality. No consolidation. No lung volumes. BNP 467. Patient not short of breath. Potassium 3.4. Potassium replaced. 2. Essential Hypertension - Continue current regimen. 3. Hyperlipidemia - Resume statin. 4. GERD; with history of PUD - Continue PPI and Sucralfate. 5. Obesity; with BMI of 34.3 this admission and FAVIAN - Weight loss will be recommended. Continue CPAP. 6. DM-2; of unknown control - ADA diet. FSBS q. AC/HS plus SSI. 7. CKD; stage IIIb -BUNs/creatinine 26/1.89. His creatinine is within his baseline range of 1.7-2.0 8. History of DVT/PE - Noted. 9. DVT prophylaxis - As per geriatric aide. Allergies/Procedures Done in Hospital Allergies No Known Allergies Allergy (Verified 06/07/23 03:28) Type of Care/Length of Stay Estimated LOS: Convalescent Care Less Than 30 days Type of Care Needed: Skilled Rehab Potential: Good Prognosis: Good Additional Orders/Day of Discharge Day of Discharge: 06/20/23 Dietary and Speech Recommendations Dietitian Recommendations/Changes: continue cardiac diet as tolerated, ONS if PO intake at meals fails Follow Up Care Please Follow Up With: Robb Hua MD Discharge Plan Admission Admit Date/Time: 06/19/23 12:15 Primary Reason for Your Visit: SSS, S/P pacemaker Attending Provider: Robb Hua Primary Care Provider: Mery Raymond Consulting Providers: Kingsley Hollis Discharge Orders/Prescriptions Prescriptions: New polyethylene glycol 3350 17 gram Powder In Packet 17 g PO DAILY Qty: 0 0RF sennosides-docusate sodium [Stool Softener-Stimulant Laxat] 8.6-50 mg Tablet 2 tab PO BID Qty: 0 0RF Continued (DME) Handicap Placard See Rx Instructions .ROUTE .MEDSUPPLY Qty: 1 0RF Rx Instructions: As directed, length of time 3 years (DME) FreeStyle Tiffanie 2 Puryear Misc See Rx Instructions .ROUTE .MEDSUPPLY Qty: 1 0RF Rx Instructions: As directed (DME) OneTouch Verio test strips Strip See Rx Instructions .ROUTE .MEDSUPPLY Qty: 100 12RF Rx Instructions: test 3 times daily cinacalcet 30 mg tablet 30 mg PO BID Qty: 60 8RF nitroglycerin 0.4 mg tablet, sublingual 0.4 mg sublingual Q5M PRN (Reason: chest pain) Rx Instructions: do not exceed 3 doses per episode albuterol sulfate 90 mcg/actuation HFA aerosol inhaler 2 puff inhalation Q6H PRN (Reason: shortness of breath or wheezing) amlodipine 5 mg tablet 10 mg PO DAILY (DME) compress.stocking,knee,reg,lrg Misc See Rx Instructions .ROUTE .MEDSUPPLY Qty: 2 0RF Rx Instructions: Apply first thing in AM before ambulation (DME) FreeStyle Tiffanie 2 Sensor Kit See Rx Instructions .ROUTE .MEDSUPPLY Qty: 2 6RF Rx Instructions: As directed hydralazine 25 mg tablet 25 mg PO TID Qty: 90 2RF Ozempic 1 mg/dose (4 mg/3 mL) pen injector 1 mg SUBCUT QWEEK Patient Comments: INJECT 1MG (0.75ML) SUBCUTANEOUSLY EVERY WEEK potassium chloride 20 mEq tablet,ER particles/crystals 20 meq PO BID Patient Comments: TAKE ONE (1) TABLET BY MOUTH TWICE DAILY FOR POTASSIUM lidocaine 5 % Adhesive Patch,Medicated 1 patch topical DAILY Qty: 15 1RF Protocol: *Topical Application Instructions APPLICATION INSTRUCTIONS: Right knee Rx Instructions: For use on right knee oxycodone 5 mg Tablet 5 mg PO Q4H PRN PRN (Reason: Pain Score 6-10) 3 Days Qty: 7 0RF (DME) pen needle, diabetic [BD Ultra-Fine Lorie Pen Needle] 32 gauge x 5/32 needle See Rx Instructions .ROUTE .MEDSUPPLY Qty: 360 5RF Rx Instructions: 4x/day clopidogrel 75 mg tablet 75 mg PO DAILY Qty: 90 3RF fenofibrate micronized 200 mg capsule 200 mg PO DAILY Qty: 30 12RF losartan 25 mg tablet 25 mg PO DAILY Qty: 90 3RF Hold Instructions: until you see nephrology ranolazine 500 mg tablet extended release 12 hr 500 mg PO BID Qty: 180 3RF ferrous sulfate 325 mg (65 mg iron) tablet 325 mg PO DAILY Qty: 90 1RF furosemide 40 mg tablet 40 mg PO DAILY Qty: 30 1RF paroxetine HCl 40 mg tablet 40 mg PO DAILY Qty: 30 1RF pantoprazole 40 mg tablet,delayed release (DR/EC) 40 mg PO DAILY Qty: 30 0RF Rx Instructions: recently decreased from BID pantoprazole 40 mg tablet,delayed release (DR/EC) 40 mg PO DAILY Qty: 90 1RF sucralfate 1 gram tablet 1 g PO .QID 90 Days Qty: 360 1RF sucralfate 1 gram tablet 1 g PO .QID 30 Days Qty: 120 0RF metoprolol succinate 50 mg tablet extended release 24 hr 50 mg PO Q12H Qty: 60 11RF Referrals / Follow Up: Robb Hua MD [Med Staff - Active Staff] - Within 1 Month Mery Raymond MD [Primary Care Provider] - Disposition Disposition (needs filled in before D/C Order can be placed): [facility] (2) Type 2 diabetes mellitus Qualifiers: Diabetes mellitus senior care insulin use: with senior care use Diabetes mellitus complication status: with hyperglycemia Qualified Code(s): E11.65 - Type 2 diabetes mellitus with hyperglycemia; Z79.4 - group home (current) use of insulin
--- NOTE | 2023-06-20 16:22 | CASEMGMT ---
Patient will be discharged to [facility] under skilled level of care. SW completed a PASRR in [facility] system as patient is observation status. Physicians will transport patient. Plan: d/c to [facility] under skilled level of care on a PASRR. Physicians will transport patient. Dipika FANG
--- NOTE | 2023-06-20 16:34 | CASEMGMT ---
Discharge Planning Discharge orders, signed med list, and transport time sent to [facility] via [facility]. Physicians will transport patient by wheelchair at 7p. Nursing, SW, and patient updated. Jennifer Stringer, Discharge Planning Asst.
--- NOTE | 2023-06-20 18:15 | NURSING ---
Report called to [facility]
--- NOTE | 2023-06-20 22:30 | NURSING ---
Pt was discharged with belongings at this time to the [facility] with [facility] transport services. IV and telemetry removed.
--- NOTE | 2023-06-21 02:04 | NURSING ---
Pt. began complaining of right knee/ calf pain. States he is concerned that he has a DVT since he has had them before . BL calfs warm to touch, no redness or abnormal warmth. BL popliteal and dorsal pedis weak but noted. Notified Dr. Becerra regarding pt.'s concern. He stated that d/t pt. having chronic BL knee pain, he felt that the pain could be due to pt.'s inactivity following pacemaker placement. 1x dose of oral oxycodone ordered. After oxycodone was administered, pt. stated he felt some pain relief and that pain was mainly in his knee now.
== END 2023-06-20 22:30 | disposition skilled nursing facility (03) ==
LOC: CLSP 12:53 → PCU 14:45
PROVIDERS: Internal Medicine; Physician Assistant Medical; Admitting Provider Internal Medicine Cardiovascular Disease; PCP Internal Medicine; Referring Provider Internal Medicine; Visit Provider Internal Medicine Cardiovascular Disease
DX: Z45.018 Encounter for adjustment and management of other part of cardiac pacemaker (principal); I13.0 Hypertensive heart and chronic kidney disease with heart failure and stage 1 through stage 4 chronic kidney disease, or unspecified chronic kidney disease; I50.32 Chronic diastolic (congestive) heart failure; I27.21 Secondary pulmonary arterial hypertension; E11.65 Type 2 diabetes mellitus with hyperglycemia; E11.22 Type 2 diabetes mellitus with diabetic chronic kidney disease; I49.5 Sick sinus syndrome; I48.91 Unspecified atrial fibrillation; E21.3 Hyperparathyroidism, unspecified; Z79.4 Long term (current) use of insulin; N18.32 Chronic kidney disease, stage 3b; Z68.34 Body mass index [BMI] 34.0-34.9, adult; E66.9 Obesity, unspecified; E78.2 Mixed hyperlipidemia; I25.10 Atherosclerotic heart disease of native coronary artery without angina pectoris; G47.33 Obstructive sleep apnea (adult) (pediatric); R94.39 Abnormal result of other cardiovascular function study; Z79.899 Other long term (current) drug therapy; J45.909 Unspecified asthma, uncomplicated; K21.9 Gastro-esophageal reflux disease without esophagitis; Z86.718 Personal history of other venous thrombosis and embolism; Z86.711 Personal history of pulmonary embolism; E87.6 Hypokalemia
CPT/HCPCS: 33208; 36415; 71047; 80048; 81001; 83880; 85025; 85610; 94640; 96374; 97162; 97166; 97802; 99152; 99153; 99221; J7040; J7050; A4216; C1894; G0378; J1940; Q9967

== ENCOUNTER 2023-07-13 06:46 | Day surgery (SDC) | payer MEDICARE, SELFPAY ==
[2023-03-13 16:01] VITALS: BMI 43.3
[2023-07-13] VITALS (7 sets, daily range): BP systolic 98–153; BP diastolic 61–95; PULSE 70–73; RESP 16–20; TEMP 36.4–36.5; O2SAT 94–96; BMI 33.2
[2023-07-13] MEDS: Lactated Ringers 1,000 ML 15 ML IV (07:27)
--- NOTE | 2023-07-13 07:33 | PCM.HP.BLA ---
History and Physical Date of Admission: 07/13/23 ELIANE KAY, is a 67 M who presents to the office today for *[facility] hospitalization 02.26.23-03.03.23 for management of GIB and CHF with HF with preserved ejection fraction. ? 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 ? 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 H.Pylori neg. [facility] hospitalization 03.13.23-03.18.23 for ongoing GIB with anemia requiring PRBC transfusion with chronic conditions DMII, CAD, CKD III. ? CT abd/pel 03.13.23 bilateral adrenal nodules; renal calculi; renal cysts; small fatty umbilical hernia ? 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 ? 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 OV 04.18.23 feeling better since hospitalization. Has been having some constipation difficulty recently with start of iron tablet and oxycodone PRN; he will be establishing with pain management through palliative care. ROS Const Constitutional: Positive for weight change ( NURSE WANTED PATIENT TO MENTION WEIGHT LOSS); No body ache, chills, excessive sweating, fatigue, fever(s), frequent falls, headache(s), snoring, weakness, sleep problems or change in appetite Eyes Eyes: No blurry vision, change in vision or Light sensitivity ENT ENT: Positive for dizziness/vertigo; No abnormal hearing, ear or mastoid pain, tinnitus, nasal congestion, nasal discharge, headache(s), neck pain or sore throat Resp Respiratory: No cough, shortness of breath, snoring or wheezing Cardio Cardiology: No chest pain at rest, chest pain with exertion, excessive sweating, shortness of breath, dyspnea on exertion, lightheadedness, orthopnea or palpitations Gastro GI: Positive for other (PATIENT REPORTS APPETITE IS OKAY; EATS WHEN HUNGRY); No abdominal pain, change in bowel habits, constipation, cramping, diarrhea or nausea/dyspepsia Genitourinary Male: No burning urination, painful urination, urinary incontinence or urinary frequency Musc Musculoskeletal: Positive for joint pain (BILATERAL SHOULDERS AND KNEE PAIN); No abnormal gait, back pain, limited range of motion, muscle weakness, neck pain or numbness Skin Skin: No dry skin, redness, lesions, itchy eyes, rash or wounds Neuro Neurology: No abnormal gait, abnormal hearing, weakness, frequent falls, headache(s), memory loss or numbness Psych Psychiatric: No anxiety, No change in appetite, No depression, No memory loss, No panic attacks and No Thoughts of harming yourself/Others Endo Endocrine: Positive for weight change (HH NURSE WANTED PATIENT TO MENTION WEIGHT LOSS); No cold intolerance, excessive sweating, fatigue, flushing, heat intolerance, increased thirst/drinking or increased hunger Aller/Imm Allergy/Immunologic: No itchy eyes, seasonal allergy symptoms, hives or wheezing Exam Const General: cooperative, healthy appearing, comfortable, no acute distress, well developed and well groomed Nutritional Appearance: obese Orientation: alert, awake and oriented x3 [facility] Head: normocephalic and atraumatic Ears: hearing grossly normal bilaterally Nose: external nose normal Mouth: moist mucous membranes Eyes Alignment and Position: alignment normal Periorbital: periorbital findings normal Neck Neck: full ROM and no lymphadenopathy Neck mass: No Thyroid: thyroid normal Resp Effort & Inspection: normal respiratory effort, able to speak in complete sentences, symmetric chest movement, no audible wheezes and no cough Auscultation: Bilateral: Clear to Auscultation Cardio Rate: regular rate Rhythm: regular rhythm (not in a-fib at this time) Heart Sounds: S1 normal, S2 normal and no murmurs GI Inspection: obesity Auscultation: normal bowel sounds Skin General: turgor normal and no pallor Rashes: no rashes Neuro General: patient alert, patient awake and patient oriented x3 Cognition: normal cognition Speech: speech normal Motor: muscle tone normal throughout Extrem General: edema Laterality: bilateral Severity: pitting and 2+ Psych Appearance: grossly normal Mental Status: mental status grossly normal Mood: congruent mood Affect: normal affect Speech and Movement: speech and movement normal Attitude: cooperative Thought Process: normal Judgment: judgment good Quality Reporting Tobacco Screening ([facility] 138) Smoking Status: Never smoker Assessment and Plan Assessment and Plan (1) GI bleed: Status: Resolved Qualifiers: GI bleed type/associated pathology: unspecified gastrointestinal hemorrhage type Qualified Code(s): K92.2 - Gastrointestinal hemorrhage, unspecified Plan: 67-year-old gentleman past medical history of CKD stage IIIb, acute on chronic anemia, CAD status post PTCA with stents, atrial fibrillation, secondary pulmonary pretension who I saw in the hospital for acute recurrent GI bleeding secondary to gastric ulcer. Gastric ulcer was negative for intestinal metaplasia, dysplasia, cancer or H. pylori. He had 2 clips placed to a centralized ulcer at the base of the antrum. His antiplatelet therapy was stopped. He was placed on PPI therapy and Carafate therapy. He is active doing very well and his hemoglobin has increased from 7.4-10.9 with administration of iron therapy. Patient is okay with repeating upper endoscopy to make sure his gastric ulcer has healed to the point where he will not need any supplemental medicine such as sulcal fate and he be safe to go back on antiplatelet therapy. Orders: Orders EGD 05/22/23 K92.2 - Gastrointestinal hemorrhage, unspecified I have examined the patient and the H&P has been reviewed. There are no clinical changes since date of exam.
[2023-07-13 07:50] LABS: Bedside Glucose 103 mg/dL (74-106)
--- NOTE | 2023-07-13 08:00 | EGD_PTH ---
PATIENT: ELIANE KAY LOC: EN U#:[id number] AGE/SX: 67/M ROOM: RE07/13/[address]: Dr. Louie Gonzales DO : 1955 BED: DIS: 07/13/2023 SPEC #: [id number] RECD: 07/13/23 09:30 STATUS: ESTRELLITA STEPH #: [id number] PATRICIO: 07/13/23 08:[address]: Louie Gonzales DEPT: SURGICAL PATHOLOGY RECD BY: Kaila Mishra ENTERED: 07/13/23 12:08 SP TYPE: EGD BIOPSY KAYE DR: Dr. Mery Raymond MD Tissues: A - Gastric mucous membrane B - Esophagus, NOS Procedures: Special Stain Group II Surgery Specimen Level IV Alcian Blue/PAS (control) HEADER OPERATION: EGD with biopsies, Electrohemostasis PRE-OP DIAGNOSIS: GI bleed TISSUE SUBMITTED: A- Gastric ulcer biopsy, B- Distal esophagus biopsy MICROSCOPIC DIAGNOSIS A. Gastric ulcer, biopsy: Mild gastritis. See microscopic description and comment. B. Distal esophagus, biopsy: Fragments of gastroesophageal mucosa with focal intestinal metaplasia (goblet cell metaplasia), consistent with Tuttle's esophagus. Chronic inflammation. Negative for dysplasia. See comment. ANDIE/ 07/14/23 COMMENT A. The results of immunohistochemistry for Helicobacter pylori will be reported separately ([id number]). B. Immunohistochemistry ([id number]) for P53 and Ki-67 will be performed and results will be reported separately. Alcian blue/PAS stain with matched control is used in the evaluation of the specimen. MICROSCOPIC DESCRIPTION Slides are reviewed. A. The specimen shows fragments of gastric mucosa with chronic inflammatory cell infiltrates in the lamina propria consisting of lymphocytes and plasma cells, consistent with mild chronic gastritis. GROSS DESCRIPTION A. Received in fixative is one container labeled with the patient's name and designated Gastric ulcer biopsy. The specimen consists of multiple irregular fragments of light mejia soft tissue that in aggregate measure 0.6 x .3 x 0.1 cm. The specimen is totally submitted in one cassette. B. Received in fixative is one container labeled with the patient's name and designated Distal esophagus biopsy. The specimen consists of two irregular fragments of light mejia soft tissue that in aggregate measure 0.6 x 0.3 x 0.1 cm. The specimen is totally submitted in one cassette. ANDIE/ 07/13/23 TC:5 CPT: 96546g0,52702
--- NOTE | 2023-07-13 08:00 | IMM_PTH ---
PATIENT: ELIANE KAY LOC: EN U#:[id number] AGE/SX: 67/M ROOM: RE07/13/[address]: Dr. Louie Gonzales DO : 1955 BED: DIS: 07/13/2023 SPEC #: [id number] RECD: 07/13/23 13:52 STATUS: ESTRELLITA REMary Anne #: [id number] PATRICIO: 07/13/23 08:[address]: Louie Gonzales DEPT: IMMUNOHISTOCHEMISTRY RECD BY: Jimbo Devi ENTERED: 07/13/23 13:52 SP TYPE: IMMUNO OTHR DR: Dr. Mery Raymond MD Tissues: A - Stomach, NOS B - Esophagus, NOS Procedures: H Pylori (initial) P53 (initial) KI-67 (add) PHYSICIAN & INSTITUTION [place] [id number] SPECIMEN INFORMATION: Tissue Source: A- Gastric ulcer biopsy, B- Distal esophagus biopsy Clinical Info: GI bleed Specimen Number: [id number] A&B CPT code: 86270,38069 METHODOLOGY: Deparaffinized sections of prefer/formalin-fixed tissue or PAP/DQ stained slides are incubated with monoclonal/polyclonal antibodies/oligonucleotide probes. Localization is made via biotin free immunoperoxidase method. Appropriate controls are performed and reacted as expected. Results on target cell population are indicated in the following table: RESULTS: ANTIBODY / CLONE RESULT Block A H Pylori (polyclonal) negative Block B P53 (DO-7) negative (null pattern) Ki-67 (30-9) positive, low These tests were developed and their performance characteristics determined by [facility]. They may not have been cleared or approved by the U.S. Food and Drug Administration. The FDA has determined that such clearance or approval is not necessary. The above immunohistochemical/dualISH markers are ordered and reviewed by the Pathologist. INTERPRETATION: A. Gastric ulcer, biopsy: Negative for Helicobacter pylori organisms. B. Distal esophagus, biopsy: Negative for dysplasia. ANDIE/ 07/17/23
--- NOTE | 2023-07-13 08:47 | OP.CCLET_ITS ---
07/13/2023 Mery Raymond MD [address] [place] [address] [place] [address] Re : Upper GI endoscopy procedure for Shade Teixeira Dear Dr. Raymond This procedure was performed on July. 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 Biopsied. - LA Grade B erosive esophagitis with bleeding. Treated with a heater probe. - Oozing gastric ulcer with pigmented material. Injected. Treated with a heater probe. - No gross lesions in the duodenal bulb. Recommendations : - Discharge patient to home. - Resume previous diet. - Continue present medications. - Await pathology results. My findings are described in the full procedure note, which is enclosed. If I can be of further assistance, please feel free to contact me at . Sincerely, Louie Gonzales, 07/13/2023 8:46:38 AM This report has been signed electronically.
--- NOTE | 2023-07-13 08:47 | OP.EGD_ITS ---
Patient Name: Shade Teixeira Procedure Date: 07/13/2023 8:14 AM Date of : 1955 Age: 67 Procedure: Upper GI endoscopy Indications: Iron deficiency anemia, Recent gastrointestinal bleeding, Peptic ulcer Providers: Louie Gonzales DO Medicines: Monitored Anesthesia Care Patient Profile: This is a 67 year old male. Refer to note in patient chart for documentation of history and physical. Patient has symptoms. His most recent EGD for treatment of bleeding was within the past three months. Complications: No immediate complications. Procedure: Pre-Anesthesia Assessment: - Prior to the procedure, a History and Physical was performed, and patient medications and allergies were reviewed. The patient is competent. The risks and benefits of the procedure and the sedation options and risks were discussed with the patient. All questions were answered and informed consent was obtained. Patient identification and proposed procedure were verified by the physician in the pre-procedure area. Mental Status Examination: alert and oriented. Airway Examination: normal oropharyngeal airway and neck mobility. Respiratory Examination: clear to auscultation. CV Examination: normal. ASA Grade Assessment: IV - A patient with severe systemic disease that is a constant threat to life. After reviewing the risks and benefits, the patient was deemed in satisfactory condition to undergo the procedure. The anesthesia plan was to use monitored anesthesia care (MAC). Immediately prior to administration of medications, the patient was re-assessed for adequacy to receive sedatives. The heart rate, respiratory rate, oxygen saturations, blood pressure, adequacy of pulmonary ventilation, and response to care were monitored throughout the procedure. The physical status of the patient was re-assessed after the procedure. After obtaining informed consent, the endoscope was passed under direct vision. Throughout the procedure, the patient's blood pressure, pulse, and oxygen saturations were monitored continuously. The gastroscope was introduced through the mouth, and advanced to the second part of duodenum. The upper GI endoscopy was accomplished without difficulty. The patient tolerated the procedure well. Scope In: 8:22:53 AM Scope Out: 8:40:08 AM Total Procedure Duration Time 0 hours 17 minutes 15 seconds Findings: There were esophageal mucosal changes consistent with short-segment Tuttle's esophagus present in the lower third of the esophagus. The maximum longitudinal extent of these mucosal changes was 3 cm in length. Mucosa was biopsied with a cold forceps for histology in a targeted manner at intervals of 1 cm in the lower third of the esophagus. One specimen bottle was sent to pathology. Verification of patient identification for the specimen was done. Estimated blood loss was minimal. LA Grade B (one or more mucosal breaks greater than 5 mm, not extending between the tops of two mucosal folds) esophagitis with bleeding was found 37 to 40 cm from the incisors. Coagulation for hemostasis using heater probe was successful. Estimated blood loss was minimal. One oozing cratered gastric ulcer with pigmented material was found at the incisura. The lesion was 6 mm in largest dimension. Area was successfully injected with 8 mL of a 0.1 mg/mL solution of epinephrine for drug delivery. Coagulation for hemostasis using heater probe was successful. Estimated blood loss was minimal. No gross lesions were noted in the duodenal bulb. 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 Biopsied. - LA Grade B erosive esophagitis with bleeding. Treated with a heater probe. - Oozing gastric ulcer with pigmented material. Injected. Treated with a heater probe. - No gross lesions in the duodenal bulb. Recommendation: - Discharge patient to home. - Resume previous diet. - Continue present medications. - Await pathology results. Procedure Code(s): --- Professional --- 40229, 59, Esophagogastroduodenoscopy, flexible, transoral; with control of bleeding, any method 16035, Esophagogastroduodenoscopy, flexible, transoral; with biopsy, single or multiple 51314, 59,51, Esophagogastroduodenoscopy, flexible, transoral; with directed submucosal injection(s), any substance CPT copyright 2021 [employer]. All rights reserved. The codes documented in this report are preliminary and upon carrier blower review may be revised to meet current compliance requirements. Louie Gonzales DO 07/13/2023 8:46:38 AM This report has been signed electronically. Number of Addenda: 0 Note Initiated On: 07/13/2023 8:14 AM
== END 2023-07-13 09:33 | disposition home or self-care (01) ==
LOC: EN 06:49 → AC 06:49
PROVIDERS: PCP Internal Medicine; Referring Provider Internal Medicine; Visit Provider Internal Medicine Gastroenterology
PROC: 0DJ08ZZ Inspection of Upper Intestinal Tract, Via Natural or Artificial Opening Endoscopic (ICD-10-PCS; CPT 43235; principal; 2023-07-13 07:55)
DX: K22.11 Ulcer of esophagus with bleeding (principal); J44.9 Chronic obstructive pulmonary disease, unspecified; E11.22 Type 2 diabetes mellitus with diabetic chronic kidney disease; N18.32 Chronic kidney disease, stage 3b; D50.9 Iron deficiency anemia, unspecified; E66.9 Obesity, unspecified; I25.10 Atherosclerotic heart disease of native coronary artery without angina pectoris; Z95.2 Presence of prosthetic heart valve; K29.70 Gastritis, unspecified, without bleeding; K25.4 Chronic or unspecified gastric ulcer with hemorrhage; Z79.85 Long-term (current) use of injectable non-insulin antidiabetic drugs; Z79.899 Other long term (current) drug therapy; I12.9 Hypertensive chronic kidney disease with stage 1 through stage 4 chronic kidney disease, or unspecified chronic kidney disease; E78.00 Pure hypercholesterolemia, unspecified; Z90.49 Acquired absence of other specified parts of digestive tract
CPT/HCPCS: 43255; 43239; 82962; 88305; 88313; 88341; 88342; J7120; J2405

== ENCOUNTER 2023-07-20 14:25 | Emergency (ER) | payer MEDICARE, SELFPAY ==
[2023-03-13 16:01] VITALS: BMI 43.3
[2023-07-20 14:25] VITALS: BP 134/71; PULSE 69; RESP 14; TEMP 36.6; O2SAT 100
--- NOTE | 2023-07-20 15:38 | ED.VIS.FALL ---
HPI HPI - Fall History of Present Illness Chief Complaint: Fall Detail of Chief Complaint: Fall carrying groceries from door to kitchen Informant: patient Occured/Mechanism Occurred: Today Narrative: Patient states she just dropped. Had no symptoms. Patient had a [employer] pacemaker placed within the past month for sick sinus syndrome. Pain/Injury Location: Patient states he hit his head on a cardboard box. He points to the right Pain Location: none Worsened by: Nothing Relieved by: Nothing Associated Symptoms Associated Symptoms: Positive for Weakness; Negative for Parasthesias, Loss of function, Inability to ambulate, Loss of consciousness or Amnesia Narrative Narrative: Patient is a 67-year-old male. He has multiple medical problems which include sick sinus syndrome, essential primary hypertension, long-term antithrombotic use, chronic anemia, stage IIIb chronic kidney disease, hyperlipidemia, primary hyperparathyroidism, pure hypercholesterolemia. Patient does have 3 stents that were placed last year. He is morbidly obese with a BMI of 44.9. Patient denies fever, chills night sweats. Patient denies headache. Patient has double vision blurred vision loss of vision. Patient has chronic bilateral tinnitus. Patient denies epistaxis. Patient denies trouble with speech or swallowing. Patient denies chest pain, orthopnea [place] exertion. He denies abdominal pain. Denies black or maroon-colored stool. He denies dysuria, frequency, urgency or hematuria. Tetanus Immunization: 5-10 years Prior similar symptoms: Yes Recent Illness/Hospitalization: No PFSH PFS Medical History Abnormal chest xray Acquired left ventricular hypertrophy Acute midline thoracic back pain Adult failure to thrive Alcohol abuse Ambulates with cane Anemia Anxiety Anxiety and depression Arthritis Arthritis Asthma Atherosclerosis of coronary artery of [place] heart without angina pectoris Atrial fibrillation Back pain Benign essential HTN BiPAP (biphasic positive airway pressure) dependence Cardiology follow-up encounter Chest pain Chest pain Chronic hypoxemic respiratory failure Chronic pain of both knees Chronic wound of head Colon cancer screening Congestive heart failure Congestive heart failure (CHF) COPD (chronic obstructive pulmonary disease) Dark stools Debility Depression Depression Diabetes Dietary restriction Dizziness MEANS (dyspnea on exertion) DVT (deep venous thrombosis) Dyspnea on exertion Fall Fatigue Gastric ulcer GERD (gastroesophageal reflux disease) GI bleed Health care maintenance Heart failure with preserved ejection fraction Hepatitis History of diverticulitis History of DVT (deep vein thrombosis) History of echocardiogram History of edema History of GI bleed History of pulmonary embolism History of renal disease History of stress test History of ulceration Hypercalcemia Hyperlipidemia Hyperparathyroidism Hypertension Hypertriglyceridemia Hypotension Hypoxia Injury of head and neck Insomnia Intermittent chest pain Irregular heart beat Lives in [facility] Loss of hearing Morbid obesity with BMI of 40.0-44.9, adult Near syncope Non-smoker Obesity Olecranon bursitis FAVIAN (obstructive sleep apnea) Osteoarthritis Osteopenia Presence of permanent cardiac pacemaker Pressure ulcer Primary hyperparathyroidism Pulmonary embolism Pure hypercholesterolemia Renal insufficiency Sciatica Secondary pulmonary hypertension Seizures Shortness of breath Shortness of breath on exertion Sick sinus syndrome Stage 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 disease (CKD) Thyroid disease Tinnitus of both ears Type 2 diabetes mellitus Uses wheelchair Vertigo Vitamin D deficiency Wears glasses Home Medications Handicap Placard #1 ea 04/08/20 [Rx Last Taken Unknown] flash glucose scanning reader ([employer] Tiffanie 2 Yulan) #1 ea 02/16/21 [Rx Last Taken Unknown] pen needle, diabetic 32 gauge x 5/32 (BD Ultra-Fine Lorie Pen Needle) #360 ea 04/08/22 [Rx Last Taken Unknown] clopidogrel 75 mg tablet 75 mg PO DAILY BLOOD THINNER #90 tabs 10/03/22 [Rx Last Taken 07/12/23] fenofibrate micronized 200 mg capsule 200 mg PO DAILY cholesterol #30 caps 10/20/22 [Rx Last Taken Unknown] losartan 25 mg tablet 25 mg PO DAILY blood pressure #90 tabs 12/08/22 [Rx Last Taken 06/19/23] ranolazine 500 mg tablet,extended release,12 hr 500 mg PO BID chest pain #180 tabs 12/20/22 [Rx Last Taken 06/19/23] blood sugar diagnostic (OneTouch Verio test strips) #100 ea 03/07/23 [Rx Last Taken Unknown] cinacalcet 30 mg tablet 30 mg PO BID hypercalcemia #60 tabs 03/07/23 [Rx Last Taken Unknown] albuterol sulfate 90 mcg/actuation aerosol inhaler 2 puff inhalation Q6H PRN shortness of breath or wheezing 04/14/23 [History Last Taken Unknown] amlodipine 5 mg tablet 10 mg PO QHS blood pressure 04/14/23 [History Last Taken 06/19/23] nitroglycerin 0.4 mg sublingual tablet 0.4 mg sublingual Q5M PRN chest pain 04/14/23 [History Last Taken Unknown] flash glucose sensor (FreeStyle Tiffanie 2 Sensor kit) #2 ea 04/15/23 [Rx Last Taken Unknown] ferrous sulfate 325 mg (65 mg iron) tablet 325 mg PO DAILY supplement #90 tabs 05/19/23 [Rx Last Taken Unknown] furosemide 40 mg tablet 40 mg PO DAILY water pill #30 tabs 05/19/23 [Rx Last Taken Unknown] paroxetine HCl 40 mg tablet 40 mg PO DAILY mood #30 tabs 05/19/23 [Rx Last Taken Unknown] pantoprazole 40 mg tablet,delayed release 40 mg PO DAILY #90 tabs 06/01/23 [Rx Last Taken Unknown] potassium chloride 20 mEq tablet,extended release(part/cryst) 20 meq PO BID 06/07/23 [History Last Taken Unknown] lidocaine 5 % topical patch 1 patch topical DAILY #15 ea 06/08/23 [Rx Last Taken Unknown] metoprolol succinate 50 mg tablet,extended release 24 hr 50 mg PO Q12H blood pressure #60 tabs 06/12/23 [Rx Last Taken 06/19/23] oxycodone 5 mg tablet 5 mg PO Q4H PRN PRN Pain Score 6-10 3 days #7 tabs 06/20/23 [Rx Last Taken Unknown] polyethylene glycol 3350 17 gram oral powder packet 17 g PO DAILY #0 ea 06/20/23 [Rx Last Taken Unknown] sennosides 8.6 mg-docusate sodium 50 mg tablet (Stool Softener-Stimulant Laxative) 2 tab PO BID #0 tabs 06/20/23 [Rx Last Taken Unknown] dulaglutide 1.5 mg/0.5 mL subcutaneous pen injector (Trulicity) 1.5 mg subcut QWEEK 07/11/23 [History Last Taken Unknown] sucralfate 1 gram tablet 1 g PO 4X/DAY 07/11/23 [History Last Taken 07/13/23] hydralazine 25 mg tablet 25 mg PO TID #90 tabs 07/19/23 [Rx Last Taken Unknown] Allergy/AdvReac Type Severity Reaction Status Date / Time No Known Allergies Allergy Verified 07/20/23 14:29 Family History Mother Colon cancer Sister CAD (coronary artery disease) CABG x 5 Diabetes Myocardial infarction, Onset Age: 67 Father Crohns disease Surgical History History of appendectomy History of appendectomy 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) History of cardiac catheterization History of coronary artery stent placement (10/21/22) History of eye surgery History of hip replacement History of intestinal surgery History of knee surgery History of tonsillectomy and adenoidectomy Social History household members: none housing: apartment other: Hx working in [employer]. Smoking Status: Never smoker second hand exposure: Yes alcohol intake: former year quit: 2003 details: Sober since 2003. substance use type: former substance user Date of last use: 04/10/2004 and marijuana caffeine: Yes Type: carbonated beverages Number of servings: 2 and coffee Number of servings: 2 what type of physical activity do you participate in: none ROS ROS ED Constitutional Constitutional ED: Denies chills, fever(s), subjective, sweats or weight loss Eyes Eyes: Denies blurry vision, change in vision or diplopia ENT ENT ED: Reports other Details: Bilateral tinnitus ; Denies ear pain, rhinorrhea or sore throat Cardiovascular Cardiovascular: Denies chest pain, orthopnea, palpitations, paroxysmal nocturnal dyspnea or racing heartbeat Respiratory/Chest Respiratory/Chest: Reports dyspnea on exertion and other Details: Dyspnea with walking is chronic and has been present for months. ; Denies cough, dyspnea, orthopnea, paroxysmal nocturnal dyspnea or sputum Gastrointestinal Gastrointestinal: Denies abdominal pain, constipation, diarrhea, melena, nausea or vomiting Genitourinary Genitourinary ED: Denies dysuria, hematuria or urinary frequency Musculoskeletal Musculoskeletal: Denies arthralgias, back pain, myalgias or neck pain Integumentary Denies rash Neurologic Neurologic: Reports weakness; Denies headache(s) or paresthesias Psychiatric Psychiatric: Denies anxiety Hematologic/Lymphatic Hematologic/Lymphatic: Denies easy bleeding or easy bruising EXAM Physical Exam Const Vital Signs: 07/20/23 14:25 07/20/23 16:25 07/20/23 14:35 Temperature 98 F Temperature Source Temporal Pulse Rate 69 70 Respiratory Rate 14 24 H Respiratory Effort Normal Non-Labored Respiratory Depth Normal Respiratory Pattern Normal Blood Pressure 134/71 H 143/81 H Blood Pressure Mean 92 101 Pulse Ox 100 94 Oxygen Delivery Method Room Air Room Air Room Air Positive well nourished, well developed, obese and unkempt General Appearance ED: unkempt, well developed and NAD Nutritional Appearance: obese HEENT Reports normocephalic and TM's normal bilaterally HEENT Narrative: There is no hemotympanum. There is no CSF otorrhea or rhinorrhea. There is no septal deviation hematoma. Patient has a deana above his right brow which she states has been present for some time. atraumatic Eyes PERRL and EOMs intact bilaterally General Eye ED: Negative for pale conjunctiva or scleral icterus Neck full ROM, no lymphadenopathy and supple Neck Narrative: Negative carotid bruit on the right or left. Chest Wall inspection of chest normal and palpation of chest normal Resp normal respiratory effort, no retractions and clear to auscultation bilaterally Cardio regular rate, regular rhythm, S1 normal heart sound, S2 normal heart sound and no murmurs GI non-tender, non-distended and no masses Auscultation: normoactive bowel sounds Palpation: soft Back/Spine Cervical Spine: Negative for cervical spine tenderness Thoracic Spine / Upper Back: Negative for ROM limited, pain with ROM or thoracic spinal tenderness Lumbar Spine / Lower Back: Negative for lumbar spinal tenderness Extremity Extremity Narrative: Bilateral pitting edema. There is no asymmetry, discoloration, leg vein distention, palpable cords tenderness on the distribution deep venous system. Patient has thickened toenails and stigmata of peripheral arterial disease. Neuro oriented x3, CN's II-XII intact bilaterally, moves all extremities, no focal motor deficits and no sensory deficits noted Tamara Coma Scale: document GCS findings Spontaneous Obeys Commands Oriented 15 Sensorium / Orientation: alert Psych Appearance: unkempt Mood & Affect: depressed Skin Lesions: no lesions Rashes: no rashes MDM MDM MDM Narrative Medical decision making narrative: Will have pacemaker interrogated determine if there is any dysrhythmia that could have caused patient's to fall. Baseline blood work was obtained to assess for anemia electrolyte abnormality worsening renal failure hyperkalemia. History & Record Review Additional record(s) reviewed:: Prior outpatient record, Prior ED visit and Prior labs Lab Data Attestation: I reviewed the patient's lab results. Lab results narrative: CBC is remarkable for anemia. Patient has chronic anemia and values are unchanged from prior. BMP reveals mild hypokalemia. BUN and creatinine are elevated 54 and 1.9, this is baseline. Glucose slightly elevated 135. CO2 and anion gap are normal. Labs: Laboratory Results - last 24 hr 07/20/23 15:38 WBC 9.7 RBC 3.88 L Hgb 10.0 L Hct 32.5 L MCV 83.8 MCH 25.8 L MCHC 30.8 L RDW Std Deviation 50.4 H RDW Coeff of Thao 16.7 H Plt Count 290 MPV 9.5 Immature Gran % (Auto) 0.800 Neut % (Auto) 82.6 H Lymph % (Auto) 4.5 L [place] % (Auto) 9.8 Eos % (Auto) 1.8 Baso % (Auto) 0.5 Absolute Neuts (auto) 8.0 H Absolute Lymphs (auto) 0.44 L Nucleated RBC % 0 Differential Comment SEE COMMENT Platelet Estimate ADEQUATE RBC Morphology NORM C+C Anisocytosis RARE Sodium 139 Potassium 3.2 L Chloride 108 H Carbon Dioxide 25.0 Anion Gap 6 BUN 54 H Creatinine 1.90 H Est GFR (MDRD) Af Amer 46 L Est GFR (MDRD) Non-Af 38 L BUN/Creatinine Ratio 28.4 H Glucose 135 H Calcium 9.7 EKG Initial EKG: Attestation: I personally reviewed and interpreted this EKG as follows: Interpretation: Paced (Patient has pacer spikes noted. There also appears to be intrinsic rhythm which is sinus in mechanism. Rate is 72. There is decreased anterior force. There is ST-T wave abnormalities noted. Will need old EKG for comparison. MD interval is 186 ms. QRS duration 100 ms. QT duration 414 ms. Axi) Treatment and Re-Evaluation Narrative: Pacemaker was interrogated. No abnormality noted. Therefore will discharge to home since patient's at baseline. Discharge Plan Triage Chief Complaint: Fall ED Provider: Reed Wolf Dx/Rx/DC Orders Clinical Impression: Fall against object, Hypertriglyceridemia, Stage 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 disease (CKD), Antiplatelet or antithrombotic long-term use, Lower extremity edema, Generalized weakness, Type 2 diabetes mellitus, MEANS (dyspnea on exertion) Instructions: ED Fall with Uncertain Cause Prescriptions: No Action (DME) Handicap Placard See Rx Instructions .ROUTE .MEDSUPPLY Qty: 1 0RF Rx Instructions: As directed, length of time 3 years (DME) FreeStyle Tiffanie 2 Yulan Misc See Rx Instructions .ROUTE .MEDSUPPLY Qty: 1 0RF Rx Instructions: As directed (DME) OneTouch Verio test strips Strip See Rx Instructions .ROUTE .MEDSUPPLY Qty: 100 12RF Rx Instructions: test 3 times daily cinacalcet 30 mg tablet 30 mg PO BID Qty: 60 8RF nitroglycerin 0.4 mg tablet, sublingual 0.4 mg sublingual Q5M PRN (Reason: chest pain) Rx Instructions: do not exceed 3 doses per episode albuterol sulfate 90 mcg/actuation HFA aerosol inhaler 2 puff inhalation Q6H PRN (Reason: shortness of breath or wheezing) amlodipine 5 mg tablet 10 mg PO QHS (DME) FreeStyle Tiffanie 2 Sensor Kit See Rx Instructions .ROUTE .MEDSUPPLY Qty: 2 6RF Rx Instructions: As directed potassium chloride 20 mEq tablet,ER particles/crystals 20 meq PO BID Patient Comments: TAKE ONE (1) TABLET BY MOUTH TWICE DAILY FOR POTASSIUM lidocaine 5 % Adhesive Patch,Medicated 1 patch topical DAILY Qty: 15 1RF Protocol: *Topical Application Instructions APPLICATION INSTRUCTIONS: Right knee Rx Instructions: For use on right knee polyethylene glycol 3350 17 gram Powder In Packet 17 g PO DAILY Qty: 0 0RF sennosides-docusate sodium [Stool Softener-Stimulant Laxat] 8.6-50 mg Tablet 2 tab PO BID Qty: 0 0RF oxycodone 5 mg Tablet 5 mg PO Q4H PRN PRN (Reason: Pain Score 6-10) 3 Days Qty: 7 0RF Trulicity 1.5 mg/0.5 mL pen injector 1.5 mg subcut QWEEK sucralfate 1 gram tablet 1 g PO 4X/DAY (DME) pen needle, diabetic [BD Ultra-Fine Lorie Pen Needle] 32 gauge x needle See Rx Instructions .ROUTE .MEDSUPPLY Qty: 360 5RF Rx Instructions: 4x/day clopidogrel 75 mg tablet 75 mg PO DAILY Qty: 90 3RF fenofibrate micronized 200 mg capsule 200 mg PO DAILY Qty: 30 12RF losartan 25 mg tablet 25 mg PO DAILY Qty: 90 3RF Hold Instructions: until you see nephrology ranolazine 500 mg tablet extended release 12 hr 500 mg PO BID Qty: 180 3RF ferrous sulfate 325 mg (65 mg iron) tablet 325 mg PO DAILY Qty: 90 1RF furosemide 40 mg tablet 40 mg PO DAILY Qty: 30 1RF paroxetine HCl 40 mg tablet 40 mg PO DAILY Qty: 30 1RF pantoprazole 40 mg tablet,delayed release (DR/EC) 40 mg PO DAILY Qty: 90 1RF metoprolol succinate 50 mg tablet extended release 24 hr 50 mg PO Q12H Qty: 60 11RF hydralazine 25 mg tablet 25 mg PO TID Qty: 90 2RF Primary Care Provider: Mery Raymond Referrals: Mery Raymond MD [Primary Care Provider] - 3-5 Days Disposition Disposition: Home, Self Care
[2023-07-20 15:46] LABS: Absolute Lymphocyte Count 0.44 X10^3/uL (0.83-4.51); Basophil# 0.05 X10^3/uL; Basophil% 0.5 % (0-1); Eosinophil# 0.18 X10^3/uL; Eosinophils% 1.8 % (0-5); Hematocrit 32.5 % (40-54); Lymphocyte # 0.44 X10^3/ul (0.83-4.51); Lymphocyte % 4.5 % (19-41); Mean Corp Hgb Conc 30.8 g/dL (32-36); Mean Corpuscular Hgb 25.8 pg (27.0-32.0); Mean Corpuscular Volume 83.8 fL (80-94); Mean Platelet Vol. 9.5 fl (6.2-12.0); Monocyte# 0.95 X10^3/uL; Monocyte% 9.8 % (0-10); NRBC Flagged by Analyzer 0 % (0-5); Neutrophil # 8.03 X10^3/uL (2.7-7.7); Neutrophil % 82.6 % (47-70); POSITIVE DIFFERENTIAL YES; Platelet Count 290 K/mm3 (150-450); RBC Distribution Width CV 16.7 % (11.6-14.6); RBC Distribution Width SD 50.4 fl (35.1-43.9); Red Blood Count 3.88 M/mm3 (4.6-6.2); White Blood Count 9.7 K/mm3 (4.4-11.0)
[2023-07-20 15:58] LABS: Anion Gap 6 (5-15); BUN 54 mg/dL (7-18); BUN/Creat Ratio 28.4 RATIO (10-20); Calcium,Total 9.7 mg/dL (8.5-10.1); Chloride 108 mmol/L (98-107); EST Glomerular Filtration Rate 38 mL/min (>60); Est Glom Filt Rate - Afr Amer 46 mL/min (>60); Glucose 135 mg/dL (74-106); Potassium 3.2 mmol/L (3.5-5.1); Sodium Level 139 mmol/L (136-145)
[2023-07-20 16:02] LABS: Differential Indicated SCAN CRITERIA MET
[2023-07-20 16:25] VITALS: BP 143/81; PULSE 70; RESP 24; O2SAT 94
[2023-07-20 16:44] LABS: Anisocytosis RARE; Platelet Estimate ADEQUATE (ADEQ); Red Cell Morphology NORM C+C NORMAL (NORM C&C)
--- NOTE | 2023-07-20 17:36 | ED.RN ---
pt tells this rn while going over dc instructions that he is not able to walk and he does not feel safe to go home alone. this rn informed dr price that pt was not wanting to discharge. per dr price ambulate pt. pt ambulated from room adn down the [place] with no issues. this rn asks pt if he feels ok while ambulating. pt states he felt off balance when he looks up. ok to discharge home per dr price
[2023-07-20 18:00] VITALS: RESP 18
[2023-07-20 18:08] VITALS: BP 143/81; PULSE 70; RESP 24; TEMP 36.7; O2SAT 94
== END 2023-07-20 19:40 | disposition home or self-care (01) ==
PROVIDERS: Emergency Provider Emergency Medicine; PCP Internal Medicine; Visit Provider Emergency Medicine
DX: Z04.3 Encounter for examination and observation following other accident (principal); I13.0 Hypertensive heart and chronic kidney disease with heart failure and stage 1 through stage 4 chronic kidney disease, or unspecified chronic kidney disease; I50.32 Chronic diastolic (congestive) heart failure; I49.5 Sick sinus syndrome; Z68.41 Body mass index [BMI] 40.0-44.9, adult; E66.01 Morbid (severe) obesity due to excess calories; E11.22 Type 2 diabetes mellitus with diabetic chronic kidney disease; E11.65 Type 2 diabetes mellitus with hyperglycemia; N18.32 Chronic kidney disease, stage 3b; R53.1 Weakness; E21.0 Primary hyperparathyroidism; E78.1 Pure hyperglyceridemia; H93.13 Tinnitus, bilateral; Z79.02 Long term (current) use of antithrombotics/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; Z79.85 Long-term (current) use of injectable non-insulin antidiabetic drugs; Z79.899 Other long term (current) drug therapy; Z95.0 Presence of cardiac pacemaker
CPT/HCPCS: 80048; 85025; 93005; 93288; 99284; A4216

== ENCOUNTER 2023-07-28 14:39 | Inpatient (IN) | payer MEDICARE, SELFPAY ==
[2023-03-13 16:01] VITALS: BMI 43.3
[2023-07-28] VITALS (28 sets, daily range): BP systolic 140–187; BP diastolic 70–116; PULSE 69–248; RESP 12–50; TEMP 36.5–37.2; O2SAT 88–100; BMI 35.8; BMI 34.2
[2023-07-28 15:29] LABS: Allen Test Positive; Base Excess -2 mmol/L (-2 to +2); Blood Gas Specimen Type ART; Comment 17/13; Mode BiLevel; O2 Delivery Device BiPAP; PO2 47 mmHG (75-100); RR 12; SITE R Radial; SO2 79 % (95-99); Total Carbon Dioxide 25 mmol/L; pCO2 45.4 mmHg (35-45); pH 7.33 (7.35-7.45)
--- NOTE | 2023-07-28 15:30 | RAD_ITS ---
STUDY: X-RAY CHEST REASON FOR EXAM: Male, 67 years old. chf TECHNIQUE: Single frontal view of the chest. COMPARISON: June 20, 2023 FINDINGS: Bipolar pacer on the left. Right perihilar interstitial infiltrate. Increased thickening of the minor fissure. There is no demonstrated pleural abnormality. Normal size heart. Normal mediastinum and sue. Normal visualized pulmonary arteries. Normal visualized aortic arch and descending thoracic aorta. Normal visualized thoracic spine. Normal visualized ribs, clavicles, and shoulders. There is no demonstrated abnormality of the visualized soft tissue structures of the upper abdomen. RAD/Chest 1 View (Portable) IMPRESSION: Right perihilar interstitial infiltrate in pleural reaction Electronically Signed: Jimmy Portillo MD at 16:50 EDT ,
--- NOTE | 2023-07-28 15:31 | EDS_ITS ---
HPI History of Present Illness Chief Complaint: Shortness of Breath Informant: patient Narrative Narrative: 67-year-old male history of chronic kidney disease congestive heart failure coronary artery disease and diabetes presenting with dyspnea. Patient states th at he woke yesterday morning with shortness of breath that is progressively gotten worse. He noticed increased lower extremity swelling. He states he wears BiPAP at night. He has a history of A-fib but is not fully anticoagulated. He takes Plavix and aspirin. He denies any current chest pain. Patient wears oxygen as needed at night. [facility] Medical History Abnormal chest xray Acquired left ventricular hypertrophy Acute midline thoracic back pain Adult failure to thrive Alcohol abuse Ambulates with cane Anemia Anxiety Anxiety and depression Arthritis Arthritis Asthma Atherosclerosis of coronary artery of [place] heart without angina pectoris Atrial fibrillation Back pain Benign essential HTN BiPAP (biphasic positive airway pressure) dependence Cardiology follow-up encounter Chest pain Chest pain Chronic hypoxemic respiratory failure Chronic pain of both knees Chronic wound of head Colon cancer screening Congestive heart failure Congestive heart failure (CHF) COPD (chronic obstructive pulmonary disease) Dark stools Debility Depression Depression Diabetes Dietary restriction Dizziness MEANS (dyspnea on exertion) DVT (deep venous thrombosis) Dyspnea on exertion Fall Fatigue Gastric ulcer GERD (gastroesophageal reflux disease) GI bleed Health care maintenance Heart failure with preserved ejection fraction Hepatitis History of diverticulitis History of DVT (deep vein thrombosis) History of echocardiogram History of edema History of GI bleed History of pulmonary embolism History of renal disease History of stress test History of ulceration Hypercalcemia Hyperlipidemia Hyperparathyroidism Hypertension Hypertriglyceridemia Hypotension Hypoxia Injury of head and neck Insomnia Intermittent chest pain Irregular heart beat Lives in [facility] Loss of hearing Morbid obesity with BMI of 40.0-44.9, adult Near syncope Non-smoker Obesity Olecranon bursitis FAVIAN (obstructive sleep apnea) Osteoarthritis Osteopenia Presence of permanent cardiac pacemaker Pressure ulcer Primary hyperparathyroidism Pulmonary embolism Pure hypercholesterolemia Renal insufficiency Sciatica Secondary pulmonary hypertension Seizures Shortness of breath Shortness of breath on exertion Sick sinus syndrome Stage 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 disease (CKD) Thyroid disease Tinnitus of both ears Type 2 diabetes mellitus Uses wheelchair Vertigo Vitamin D deficiency Wears glasses Home Medications Handicap Placard #1 ea 04/08/20 [Rx Last Taken Unknown] flash glucose scanning reader ([employer] Tiffanie 2 Mehoopany) #1 ea 02/16/21 [Rx Last Taken Unknown] pen needle, diabetic 32 gauge x 5/32 (BD Ultra-Fine Lorie Pen Needle) #360 ea 04/08/22 [Rx Last Taken Unknown] clopidogrel 75 mg tablet 75 mg PO DAILY BLOOD THINNER #90 tabs 10/03/22 [Rx Last Taken 07/12/23] fenofibrate micronized 200 mg capsule 200 mg PO DAILY cholesterol #30 caps 10/20/22 [Rx Last Taken Unknown] losartan 25 mg tablet 25 mg PO DAILY blood pressure #90 tabs 12/08/22 [Rx Last Taken 06/19/23] ranolazine 500 mg tablet,extended release,12 hr 500 mg PO BID chest pain #180 tabs 12/20/22 [Rx Last Taken 06/19/23] blood sugar diagnostic ([employer] Verio test strips) #100 ea 03/07/23 [Rx Last Taken Unknown] cinacalcet 30 mg tablet 30 mg PO BID hypercalcemia #60 tabs 03/07/23 [Rx Last Taken Unknown] albuterol sulfate 90 mcg/actuation aerosol inhaler 2 puff inhalation Q6H PRN shortness of breath or wheezing 04/14/23 [History Last Taken Unknown] amlodipine 5 mg tablet 10 mg PO QHS blood pressure 04/14/23 [History Last Taken 06/19/23] nitroglycerin 0.4 mg sublingual tablet 0.4 mg sublingual Q5M PRN chest pain 04/14/23 [History Last Taken Unknown] flash glucose sensor (FreeStyle Tiffanie 2 Sensor kit) #2 ea 04/15/23 [Rx Last Taken Unknown] ferrous sulfate 325 mg (65 mg iron) tablet 325 mg PO DAILY supplement #90 tabs 05/19/23 [Rx Last Taken Unknown] furosemide 40 mg tablet 40 mg PO DAILY water pill #30 tabs 05/19/23 [Rx Last Taken Unknown] paroxetine HCl 40 mg tablet 40 mg PO DAILY mood #30 tabs 05/19/23 [Rx Last Taken Unknown] pantoprazole 40 mg tablet,delayed release 40 mg PO DAILY #90 tabs 06/01/23 [Rx Last Taken Unknown] potassium chloride 20 mEq tablet,extended release(part/cryst) 20 meq PO BID 06/07/23 [History Last Taken Unknown] lidocaine 5 % topical patch 1 patch topical DAILY #15 ea 06/08/23 [Rx Last Taken Unknown] metoprolol succinate 50 mg tablet,extended release 24 hr 50 mg PO Q12H blood pressure #60 tabs 06/12/23 [Rx Last Taken 06/19/23] oxycodone 5 mg tablet 5 mg PO Q4H PRN PRN Pain Score 6-10 3 days #7 tabs 06/20/23 [Rx Last Taken Unknown] polyethylene glycol 3350 17 gram oral powder packet 17 g PO DAILY #0 ea 06/20/23 [Rx Last Taken Unknown] sennosides 8.6 mg-docusate sodium 50 mg tablet (Stool Softener-Stimulant Laxative) 2 tab PO BID #0 tabs 06/20/23 [Rx Last Taken Unknown] dulaglutide 1.5 mg/0.5 mL subcutaneous pen injector (Trulicity) 1.5 mg subcut QWEEK 07/11/23 [History Last Taken Unknown] sucralfate 1 gram tablet 1 g PO 4X/DAY 07/11/23 [History Last Taken 07/13/23] hydralazine 25 mg tablet 25 mg PO TID #90 tabs 07/19/23 [Rx Last Taken Unknown] Allergy/AdvReac Type Severity Reaction Status Date / Time No Known Allergies Allergy Verified 07/28/23 14:40 Family History Mother Colon cancer Sister CAD (coronary artery disease) CABG x 5 Diabetes Myocardial infarction, Onset Age: 67 Father Crohns disease Surgical History History of appendectomy History of appendectomy 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) History of cardiac catheterization History of coronary artery stent placement (10/21/22) History of eye surgery History of hip replacement History of intestinal surgery History of knee surgery History of tonsillectomy and adenoidectomy Social History household members: none housing: apartment other: Hx working in [employer] and [employer]. Smoking Status: Never smoker second hand exposure: Yes alcohol intake: former year quit: 2003 details: Sober since 2003. substance use type: former substance user Date of last use: 04/10/2004 and marijuana caffeine: Yes Type: carbonated beverages Number of servings: 2 and coffee Number of servings: 2 what type of physical activity do you participate in: none ROS ROS ED Constitutional Constitutional ED: Denies chills, fever(s) or weight loss Eyes Eyes: Denies change in vision or diplopia ENT ENT ED: Denies ear pain, rhinorrhea or sore throat Cardiovascular Cardiovascular: Denies chest pain, orthopnea, palpitations or racing heartbeat Respiratory/Chest Respiratory/Chest: Reports dyspnea and dyspnea on exertion; Denies cough or orthopnea Gastrointestinal Gastrointestinal: Denies abdominal pain, diarrhea, nausea or vomiting Genitourinary Genitourinary ED: Denies dysuria, hematuria or urinary frequency Musculoskeletal Musculoskeletal: Denies arthralgias or myalgias Integumentary Reports other Details: Leg swelling ; Denies abscess or rash Neurologic Neurologic: Denies headache(s) or weakness Psychiatric Psychiatric: Denies anxiety, depression, suicidal ideation or suicidal thoughts Endocrine Endocrinology: Denies polydipsia, polyphagia or polyuria Allergic/Immunologic Allergic/Immunologic ED: Denies mouth swelling, tongue swelling or urticaria EXAM Physical Exam Const Vital Signs: 07/28/23 14:39 07/28/23 14:39 07/28/23 15:20 Temperature 97.8 F Temperature Source Temporal Pulse Rate 74 73 Respiratory Rate 26 H 27 H Respiratory Effort Short of Breath Labored Respiratory Depth Shallow Respiratory Pattern Tachypnea Normal Blood Pressure 187/116 H Blood Pressure Mean 139 Pulse Ox 88 98 Oxygen Delivery Method Nasal Cannula Nasal Cannula Oxygen Flow Rate (L/min) 3 3 Fraction of Inspired Oxygen (FIO2) 40 07/28/23 15:39 07/28/23 14:46 07/28/23 15:46 Temperature 97.8 F 98.1 F Temperature Source Temporal Temporal Pulse Rate 75 74 71 Respiratory Rate 23 H 26 H 18 Respiratory Effort Respiratory Depth Respiratory Pattern Blood Pressure 147/78 H 144/87 H 147/87 H Blood Pressure Mean 101 106 107 Pulse Ox 99 88 100 Oxygen Delivery Method Bi-pap Nasal Cannula Bi-pap Oxygen Flow Rate (L/min) 3 Fraction of Inspired Oxygen (FIO2) 07/28/23 16:00 07/28/23 16:00 07/28/23 17:40 Temperature 98.1 F Temperature Source Temporal Pulse Rate 70 77 75 Respiratory Rate 20 H 20 H 33 H Respiratory Effort Respiratory Depth Respiratory Pattern Normal Blood Pressure 150/90 H 140/86 H Blood Pressure Mean 110 104 Pulse Ox 100 100 96 Oxygen Delivery Method Room Air Room Air Oxygen Flow Rate (L/min) Fraction of Inspired Oxygen (FIO2) 40 07/28/23 17:00 07/28/23 17:00 07/28/23 18:30 Temperature 97.7 F L Temperature Source Temporal Pulse Rate 77 77 74 Respiratory Rate 22 H 22 H 24 H Respiratory Effort Respiratory Depth Respiratory Pattern Tachypnea Blood Pressure 155/81 H 155/81 H Blood Pressure Mean 105 105 Pulse Ox 100 100 98 Oxygen Delivery Method Bi-pap Bi-pap Oxygen Flow Rate (L/min) Fraction of Inspired Oxygen (FIO2) 30 07/28/23 18:00 07/28/23 18:00 Temperature 98.1 F Temperature Source Temporal Pulse Rate 77 71 Respiratory Rate 18 20 H Respiratory Effort Respiratory Depth Respiratory Pattern Blood Pressure 171/99 H 171/99 H Blood Pressure Mean 123 123 Pulse Ox 97 100 Oxygen Delivery Method Bi-pap Room Air Oxygen Flow Rate (L/min) Fraction of Inspired Oxygen (FIO2) Positive well nourished, well developed and obese General Appearance ED: well developed Nutritional Appearance: obese HEENT Reports normocephalic, head/scalp atraumatic and moist mucous membranes Eyes PERRL and EOMs intact bilaterally Neck no lymphadenopathy, supple and no JVD Resp Resp Narrative: Patient is tachypneic with short shallow breaths and respiratory accessory muscle use Auscultation: rales bilateral lower and diminished lung sounds bilateral lower Cardio no murmurs Rhythm: abnormal rhythm irregularly irregular GI normal to inspection, nondistended, normoactive bowel sounds and non-tender Palpation: soft Back/Spine no CVA tenderness and normal ROM Extremity General Extremety ED: Yes edema General Extremity: edema bilateral lower extremity Neuro oriented x3 and CN's II-XII intact bilaterally Sensorium / Orientation: alert Motor Exam: strength 5/5 throughout Psych mental status grossly normal Mood & Affect: Negative for depressed or tearful Skin no rashes or lesions noted and no wounds MDM MDM MDM Narrative Medical decision making narrative: Due to the patient's respiratory distress she was placed on BiPAP which is si gnificantly helping him. ABG was obtained shows a pH of 7.33 pCO2 of 45 PaO2 of 46.9 on 50% FiO2 HCO3 24. EKG appears to show atrial fibrillation at a rate of 79 bpm. Troponin 28 BNP 388.4 my independent interpretation of the chest x-ray is pulmonary edema with fluid in the fissures. Creatinine 1.95 which is stable for him. INR 1.3 with PTT of 27.7. Because of the patient's symptomology and his atrial fibrillation while not on anticoagulants a CTA of the chest was obtained. This is negative for pulmonary embolism. Does show small pleural effusions changes consistent with pulmonary edema patient received IV Lasix. I attempted to take him off of BiPAP but he became tachypneic again. He has to be placed back on the BiPAP. Her plan will be admission. History & Record Review Discussion w/independent historian: Patient Additional record(s) reviewed:: Prior inpatient record and Prior labs Lab Data Attestation: I reviewed the patient's lab results. Labs: Laboratory Results - last 24 hr 07/28/23 15:27 WBC 8.8 RBC 3.80 L Hgb 10.1 L Hct 33.3 L MCV 87.6 MCH 26.6 L MCHC 30.3 L RDW Std Deviation 57.8 H RDW Coeff of Thao 18.5 H Plt Count 311 MPV 9.2 Immature Gran % (Auto) 1.000 H Neut % (Auto) 87.3 H Lymph % (Auto) 3.5 L Dupage % (Auto) 6.6 Eos % (Auto) 1.0 Baso % (Auto) 0.6 Absolute Neuts (auto) 7.7 Absolute Lymphs (auto) 0.31 L Nucleated RBC % 0 Differential Comment SEE COMMENT Platelet Estimate ADEQUATE RBC Morphology N CHROM Anisocytosis RARE PT 16.2 H INR 1.3 APTT 27.7 Sodium 141 Potassium 3.9 Chloride 109 H Carbon Dioxide 25.0 Anion Gap 7 BUN 43 H Creatinine 1.95 H Estim Creat Clear Calc 47.04 Est GFR (MDRD) Af Amer 44 L Est GFR (MDRD) Non-Af 37 L BUN/Creatinine Ratio 22.1 H Glucose 211 H Calcium 10.1 Total Bilirubin 0.80 Direct Bilirubin 0.43 H AST 16 ALT 25 Alkaline Phosphatase 68 Troponin I High Sens 28 B-Natriuretic Peptide 388.4 H Total Protein 7.4 Albumin 3.4 Globulin 4.0 ABG Data ABG results: ABG 07/28/23 15:24 Specimen Type ART Sample Site R Radial pH 7.33 L Bicarbonate Actual 24.0 Total CO2 25 Base Excess -2 O2 Saturation 79 L O2 % 50.0 ABG pCO2 45.4 H ABG pO2 47 L Art Test Positive Respiration Rate 12 O2 Delivery Device BiPAP Vent Mode BiLevel Clinical Comments Radiography Diagnostic Testing: Clinical Impression(s) from Imaging Studies Chest X-Ray 07/28/23 15:30 IMPRESSION: Right perihilar interstitial infiltrate in pleural reaction Electronically Signed: Jimmy Portillo MD at 16:50 EDT Reading Location ID and State: [facility] / [place] Tel , Service support , Chest CTA 07/28/23 16:09 IMPRESSION: Small bilateral pleural effusions and mild edema or interstitial infiltrates. Coronary artery disease. Pacer. Bilateral adrenal adenomas. Electronically Signed: Jimmy Portillo MD at 20:29 EDT Reading Location ID and State: [facility] / [place] Tel , Service support , EKG Initial EKG: Attestation: I personally reviewed and interpreted this EKG as follows: Discharge Plan Dx/Rx/DC Orders Clinical Impression: Type 2 diabetes mellitus, CHF (congestive heart failure), Acute hypoxemic respiratory failure, Renal insufficiency Disposition Disposition: [facility]
[2023-07-28 15:35] LABS: Absolute Lymphocyte Count 0.31 X10^3/uL (0.83-4.51); Absolute Neutrophil Count 7.7 X10^3/uL (2.0-7.7); Basophil# 0.05 X10^3/uL; Basophil% 0.6 % (0-1); Eosinophil# 0.09 X10^3/uL; Hematocrit 33.3 % (40-54); Hemoglobin 10.1 g/dL (13.0-16.5); Lymphocyte # 0.31 X10^3/ul (0.83-4.51); Lymphocyte % 3.5 % (19-41); Mean Corp Hgb Conc 30.3 g/dL (32-36); Mean Corpuscular Hgb 26.6 pg (27.0-32.0); Mean Corpuscular Volume 87.6 fL (80-94); Mean Platelet Vol. 9.2 fl (6.2-12.0); Monocyte# 0.58 X10^3/uL; Monocyte% 6.6 % (0-10); NRBC Flagged by Analyzer 0 % (0-5); Neutrophil # 7.66 X10^3/uL (2.7-7.7); Neutrophil % 87.3 % (47-70); POSITIVE DIFFERENTIAL YES; Platelet Count 311 K/mm3 (150-450); RBC Distribution Width CV 18.5 % (11.6-14.6); RBC Distribution Width SD 57.8 fl (35.1-43.9); White Blood Count 8.8 K/mm3 (4.4-11.0)
[2023-07-28 15:48] LABS: International Normalized Ratio 1.3; Partial Thromboplast Time 27.7 Seconds (24.1-36.2); Prothrombin Time (Protime)PT. 16.2 SECONDS (11.7-14.9)
[2023-07-28 15:59] LABS: BNP,B-Type NATRIURETIC PEPTIDE 388.4 pg/mL (0-100)
[2023-07-28 16:04] LABS: AST(SGOT) 16 U/L (15-37); Alanine Aminotransfer ALT/SGPT 25 U/L (16-61); Albumin, Serum 3.4 g/dL (3.2-5.0); Alkaline Phosphatase 68 U/L (45-117); Anion Gap 7 (5-15); BUN 43 mg/dL (7-18); BUN/Creat Ratio 22.1 RATIO (10-20); Bilirubin, Direct 0.43 mg/dL (0.00-0.30); Calcium,Total 10.1 mg/dL (8.5-10.1); Chloride 109 mmol/L (98-107); Creatinine, Serum 1.95 mg/dL (0.70-1.30); EST Glomerular Filtration Rate 37 mL/min (>60); Est Glom Filt Rate - Afr Amer 44 mL/min (>60); Estimated Creatinine Clearance 47.04 ml/min; Glucose 211 mg/dL (74-106); Potassium 3.9 mmol/L (3.5-5.1); Protein, Total 7.4 g/dL (6.4-8.2); Sodium Level 141 mmol/L (136-145); Troponin-I HS 28 pg/mL (3.0-78.0)
--- NOTE | 2023-07-28 16:09 | CT_ITS ---
STUDY: CTA CHEST REASON FOR EXAM: Male, 67 years old. pulmonary embolism RADIATION DOSAGE (If Supplied By Facility): CTDIvol = ( 29.41 ) mGy, DLP = ( 752.44 ) mGycm TECHNIQUE: The examination was performed with the intravenous administration of IV 100mL [id number]-370. Post-processing of the angiographic images was performed, with multiplanar reformation and 3D reconstruction. Individualized dose optimization techniques were used for this CT. COMPARISON: Chest x-ray from today. CT chest October 21, 2022. FINDINGS: Pacer wire right heart. Calcific coronary artery disease. Normal enhancement of the main pulmonary artery and right and left pulmonary arteries. There is limited enhancement of the bilateral peripheral pulmonary arteries. There is no demonstrated pulmonary embolism. Normal thoracic aorta and visualized great vessels. There is no demonstrated aortic dissection. Normal mediastinum. Normal hilar regions. Normal visualized trachea and bronchi. Mild bilateral groundglass interstitial infiltrates. Normal pulmonary parenchyma. Small bilateral pleural effusions. Normal chest wall structures. Pacer wire left chest with wires in the right heart. Normal osseous structures. Bilateral adrenal nodules measuring up to 3.1 x [address]/CTA Chest W/WO Contrast IMPRESSION: Small bilateral pleural effusions and mild edema or interstitial infiltrates. Coronary artery disease. Pacer. Bilateral adrenal adenomas. Electronically Signed: Jimmy Portillo MD at 20:29 EDT ,
[2023-07-28 16:23] LABS: Differential Indicated SCAN CRITERIA MET
[2023-07-28 16:25] LABS: Anisocytosis RARE; Platelet Estimate ADEQUATE (ADEQ); Red Cell Morphology N CHROM NORMAL (NORM C&C)
--- NOTE | 2023-07-28 17:59 | ED.RN ---
ok to remove from bipap per dr. flannery. placed on 3L nasal cannula
[2023-07-28] MEDS: Furosemide 100 MG/10 ML Vial 80 MG IV (18:34)
--- NOTE | 2023-07-28 22:00 | HP.PCM.HOS_ITS ---
HPI - General General Date of Admission: 07/28/23 Date of Service: 07/28/23 HPI Narrative ELIANE KAY, is a 67 M who presents to the hospital with increasing shortness of breath. The majority of his labs appear to be at baseline or close to baseline, pCO2 on ABG was 45.4, his renal function is also at baseline and his BNP is lower than it has been in the past 2 visits however he was placed on BiPAP and given a dose of Lasix as CTA of the chest was negative for PE but did show small bilateral pleural effusions and mild edema. He did feel improved with BiPAP. he says that his shortness of breath significantly worsened yesterday morning and since that time he has progressively gotten worse so he presented to the hospital. [facility] Medical History Abnormal chest xray Acquired left ventricular hypertrophy Acute midline thoracic back pain Adult failure to thrive Alcohol abuse Ambulates with cane Anemia Anxiety Anxiety and depression Arthritis Arthritis Asthma Atherosclerosis of coronary artery of [place] heart without angina pectoris Atrial fibrillation Back pain Benign essential HTN BiPAP (biphasic positive airway pressure) dependence Cardiology follow-up encounter Chest pain Chest pain Chronic hypoxemic respiratory failure Chronic pain of both knees Chronic wound of head Colon cancer screening Congestive heart failure Congestive heart failure (CHF) COPD (chronic obstructive pulmonary disease) Dark stools Debility Depression Depression Diabetes Dietary restriction Dizziness MEANS (dyspnea on exertion) DVT (deep venous thrombosis) Dyspnea on exertion Fall Fatigue Gastric ulcer GERD (gastroesophageal reflux disease) GI bleed Health care maintenance Heart failure with preserved ejection fraction Hepatitis History of diverticulitis History of DVT (deep vein thrombosis) History of echocardiogram History of edema History of GI bleed History of pulmonary embolism History of renal disease History of stress test History of ulceration Hypercalcemia Hyperlipidemia Hyperparathyroidism Hypertension Hypertriglyceridemia Hypotension Hypoxia Injury of head and neck Insomnia Intermittent chest pain Irregular heart beat Lives in longterm Loss of hearing Morbid obesity with BMI of 40.0-44.9, adult Near syncope Non-smoker Obesity Olecranon bursitis FAVIAN (obstructive sleep apnea) Osteoarthritis Osteopenia Presence of permanent cardiac pacemaker Pressure ulcer Primary hyperparathyroidism Pulmonary embolism Pure hypercholesterolemia Renal insufficiency Sciatica Secondary pulmonary hypertension Seizures Shortness of breath Shortness of breath on exertion Sick sinus syndrome Stage 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 disease (CKD) Thyroid disease Tinnitus of both ears Type 2 diabetes mellitus Uses wheelchair Vertigo Vitamin D deficiency Wears glasses Home Medications Handicap Placard #1 ea 04/08/20 [Rx Last Taken Unknown] flash glucose scanning reader ([employer]apit[employer]Style Tiffanie 2 [place]) #1 ea 02/16/21 [Rx Last Taken Unknown] pen needle, diabetic 32 gauge x 5/32 (BD Ultra-Fine Lorie Pen Needle) #360 ea 04/08/22 [Rx Last Taken Unknown] clopidogrel 75 mg tablet 75 mg PO DAILY BLOOD THINNER #90 tabs 10/03/22 [Rx Last Taken 07/28/23] fenofibrate micronized 200 mg capsule 200 mg PO DAILY cholesterol #30 caps 0 10/20/22 [Rx Last Taken 07/28/23] losartan 25 mg tablet 25 mg PO DAILY blood pressure #90 tabs 12/08/22 [Rx Last Taken 07/28/23] ranolazine 500 mg tablet,extended release,12 hr 500 mg PO BID chest pain #180 tabs 12/20/22 [Rx Last Taken 07/28/23] cinacalcet 30 mg tablet 30 mg PO BID hypercalcemia #60 tabs 03/07/23 [Rx Last Taken 07/28/23] albuterol sulfate 90 mcg/actuation aerosol inhaler 2 puff inhalation Q6H PRN shortness of breath or wheezing 04/14/23 [History Last Taken 07/28/23] amlodipine 5 mg tablet 10 mg PO DAILY blood pressure 04/14/23 [History Last Taken 07/28/23] nitroglycerin 0.4 mg sublingual tablet 0.4 mg sublingual Q5M PRN chest pain 04/14/23 [History Last Taken Unknown] flash glucose sensor (FreeStyle Tiffanie 2 Sensor kit) #2 ea 04/15/23 [Rx Last Taken Unknown] ferrous sulfate 325 mg (65 mg iron) tablet 325 mg PO DAILY supplement #90 tabs 05/19/23 [Rx Last Taken 07/28/23] furosemide 40 mg tablet 40 mg PO DAILY water pill #30 tabs 05/19/23 [Rx Last Taken 07/28/23] paroxetine HCl 40 mg tablet 40 mg PO DAILY mood #30 tabs 05/19/23 [Rx Last Taken 07/28/23] pantoprazole 40 mg tablet,delayed release 40 mg PO DAILY GI #90 tabs 06/01/23 [Rx Last Taken Unknown] potassium chloride 20 mEq tablet,extended release(part/cryst) 20 meq PO BID suppliment 06/07/23 [History Last Taken Unknown] lidocaine 5 % topical patch 1 patch topical DAILY KNEE #15 ea 06/08/23 [Rx Last Taken Unknown] metoprolol succinate 50 mg tablet,extended release 24 hr 50 mg PO Q12H blood pressure #60 tabs 06/12/23 [Rx Last Taken 06/19/23] oxycodone 5 mg tablet 5 mg PO Q4H PRN PRN Pain Score 6-10 3 days #7 tabs 06/20/23 [Rx Last Taken 07/28/23] dulaglutide 1.5 mg/0.5 mL subcutaneous pen injector (Trulicity) 1.5 mg subcut QWEEK BG 07/11/23 [History Last Taken Unknown] sucralfate 1 gram tablet 1 g PO 4X/DAY na 07/11/23 [History Last Taken 07/13/23] hydralazine 25 mg tablet 25 mg PO TID WATER PILL #90 tabs 07/19/23 [Rx Last Taken Unknown] blood sugar diagnostic (Pet[employer] Verio test strips) 07/28/23 [History Last Taken Unknown] Allergy/AdvReac Type Severity Reaction Status Date / Time No Known Allergies Allergy Verified 07/28/23 14:40 Family History Mother Colon cancer Sister CAD (coronary artery disease) CABG x 5 Diabetes Myocardial infarction, Onset Age: 67 Father Crohns disease Surgical History History of appendectomy History of appendectomy 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) History of cardiac catheterization History of coronary artery stent placement (10/21/22) History of eye surgery History of hip replacement History of intestinal surgery History of knee surgery History of tonsillectomy and adenoidectomy Social History (Updated 07/28/23 @ 22:57 by Li Richard) household members: none housing: apartment current occupational status: retired pets and animals: No other: 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 Smoking Status: Never smoker second hand exposure: Yes alcohol intake: former year quit: 2003 details: Sober since 2003. substance use type: former substance user Date of last use: 04/10/2004 and marijuana caffeine: Yes Type: carbonated beverages Number of servings: 2 and coffee Number of servings: 2 what type of physical activity do you participate in: none ROS Constitutional Constitutional: Denies chills, fatigue, fever(s) or malaise Eyes Eyes: Denies blurry vision ENT HEENT: Denies headache(s) or nasal discharge Cardiovascular Cardiovascular: Reports dyspnea on exertion and edema; Denies chest pain or syncope Respiratory/Chest Respiratory/Chest: Denies cough, shortness of breath at rest or shortness of breath with exertion Gastrointestinal Gastrointestinal: Denies constipation, diarrhea, nausea or vomiting Genitourinary Genitourinary: Denies dysuria Neurologic Neurologic: Denies focal weakness, numbness or tremor(s) Psychiatric Psychiatric: Denies anxiety or depression Vital Signs Vital Signs Vital Signs: 07/28/23 14:39 07/28/23 14:39 07/28/23 15:20 Temperature 97.8 F Temperature Source Temporal Pulse Rate 74 73 Respiratory Rate 26 H 27 H Respiratory Effort Short of Breath Labored Respiratory Depth Shallow Respiratory Pattern Tachypnea Normal Blood Pressure 187/116 H Blood Pressure Mean 139 Blood Pressure Source Blood Pressure Position Blood Pressure Location Pulse Ox 88 98 Oxygen Delivery Method Nasal Cannula Nasal Cannula Oxygen Flow Rate (L/min) 3 3 Fraction of Inspired Oxygen (FIO2) 40 07/28/23 15:39 07/28/23 14:46 07/28/23 15:46 Temperature 97.8 F 98.1 F Temperature Source Temporal Temporal Pulse Rate 75 74 71 Respiratory Rate 23 H 26 H 18 Respiratory Effort Respiratory Depth Respiratory Pattern Blood Pressure 147/78 H 144/87 H 147/87 H Blood Pressure Mean 101 106 107 Blood Pressure Source Blood Pressure Position Blood Pressure Location Pulse Ox 99 88 100 Oxygen Delivery Method Bi-pap Nasal Cannula Bi-pap Oxygen Flow Rate (L/min) 3 Fraction of Inspired Oxygen (FIO2) 07/28/23 16:00 07/28/23 16:00 07/28/23 17:40 Temperature 98.1 F Temperature Source Temporal Pulse Rate 70 77 75 Respiratory Rate 20 H 20 H 33 H Respiratory Effort Respiratory Depth Respiratory Pattern Normal Blood Pressure 150/90 H 140/86 H Blood Pressure Mean 110 104 Blood Pressure Source Blood Pressure Position Blood Pressure Location Pulse Ox 100 100 96 Oxygen Delivery Method Room Air Room Air Oxygen Flow Rate (L/min) Fraction of Inspired Oxygen (FIO2) 40 07/28/23 17:00 07/28/23 17:00 07/28/23 18:30 Temperature 97.7 F L Temperature Source Temporal Pulse Rate 77 77 74 Respiratory Rate 22 H 22 H 24 H Respiratory Effort Respiratory Depth Respiratory Pattern Tachypnea Blood Pressure 155/81 H 155/81 H Blood Pressure Mean 105 105 Blood Pressure Source Blood Pressure Position Blood Pressure Location Pulse Ox 100 100 98 Oxygen Delivery Method Bi-pap Bi-pap Oxygen Flow Rate (L/min) Fraction of Inspired Oxygen (FIO2) 30 07/28/23 18:00 07/28/23 18:00 07/28/23 20:00 Temperature 98.1 F 98.9 F Temperature Source Temporal Oral Pulse Rate 77 71 70 Respiratory Rate 18 20 H 23 H Respiratory Effort Respiratory Depth Respiratory Pattern Blood Pressure 171/99 H 171/99 H 150/70 H Blood Pressure Mean 123 123 96 Blood Pressure Source Blood Pressure Position Blood Pressure Location Pulse Ox 97 100 99 Oxygen Delivery Method Bi-pap Room Air Bi-pap Oxygen Flow Rate (L/min) Fraction of Inspired Oxygen (FIO2) 07/28/23 21:00 07/28/23 19:00 07/28/23 21:30 Temperature 98.8 F 97.8 F 98.1 F Temperature Source Temporal Temporal Pulse Rate 73 74 69 Respiratory Rate 23 H 18 23 H Respiratory Effort Respiratory Depth Respiratory Pattern Blood Pressure 164/86 H 162/90 H 161/92 H Blood Pressure Mean 112 114 115 Blood Pressure Source Blood Pressure Position Blood Pressure Location Pulse Ox 98 97 99 Oxygen Delivery Method Bi-pap Bi-pap Oxygen Flow Rate (L/min) Fraction of Inspired Oxygen (FIO2) 07/28/23 19:01 07/28/23 19:15 07/28/23 19:30 Temperature Temperature Source Pulse Rate 71 74 69 Respiratory Rate 20 H 18 28 H Respiratory Effort Respiratory Depth Respiratory Pattern Blood Pressure 162/90 H 159/92 H Blood Pressure Mean 110 109 Blood Pressure Source Blood Pressure Position Blood Pressure Location Pulse Ox 98 97 99 Oxygen Delivery Method Oxygen Flow Rate (L/min) Fraction of Inspired Oxygen (FIO2) 07/28/23 19:45 07/28/23 20:00 07/28/23 20:15 Temperature Temperature Source Pulse Rate 71 71 70 Respiratory Rate 23 H 22 H 23 H Respiratory Effort Respiratory Depth Respiratory Pattern Blood Pressure 147/87 H 155/107 H 150/70 H Blood Pressure Mean 106 119 90 Blood Pressure Source Blood Pressure Position Blood Pressure Location Pulse Ox 99 98 99 Oxygen Delivery Method Oxygen Flow Rate (L/min) Fraction of Inspired Oxygen (FIO2) 07/28/23 20:30 07/28/23 20:45 07/28/23 21:00 Temperature Temperature Source Pulse Rate 71 73 Respiratory Rate 21 H 23 H 50 H Respiratory Effort Respiratory Depth Respiratory Pattern Blood Pressure 142/83 H 164/80 H 173/110 H Blood Pressure Mean 102 104 129 Blood Pressure Source Blood Pressure Position Blood Pressure Location Pulse Ox 98 Oxygen Delivery Method Oxygen Flow Rate (L/min) Fraction of Inspired Oxygen (FIO2) 07/28/23 22:00 07/28/23 21:15 07/28/23 21:30 Temperature 98.8 F Temperature Source Temporal Pulse Rate 75 248 H Respiratory Rate 18 26 H 50 H Respiratory Effort Respiratory Depth Respiratory Pattern Blood Pressure 153/89 H 169/92 H 161/92 H Blood Pressure Mean 110 114 111 Blood Pressure Source Blood Pressure Position Blood Pressure Location Pulse Ox 99 89 99 Oxygen Delivery Method Bi-pap Oxygen Flow Rate (L/min) Fraction of Inspired Oxygen (FIO2) 07/28/23 21:45 07/28/23 22:00 07/28/23 22:58 Temperature 98.4 F Temperature Source Oral Pulse Rate 108 H 75 79 Respiratory Rate 15 18 18 Respiratory Effort Respiratory Depth Respiratory Pattern Blood Pressure 152/101 H 153/89 H 161/88 H Blood Pressure Mean 115 107 112 Blood Pressure Source Monitor Blood Pressure Position Supine Blood Pressure Location Right Arm Pulse Ox 97 99 94 Oxygen Delivery Method Nasal Cannula Oxygen Flow Rate (L/min) 2 Fraction of Inspired Oxygen (FIO2) 07/28/23 23:19 07/28/23 23:21 07/28/23 23:16 Temperature Temperature Source Pulse Rate 79 79 Respiratory Rate Respiratory Effort Respiratory Depth Respiratory Pattern Blood Pressure 161/88 H 161/88 H Blood Pressure Mean Blood Pressure Source Blood Pressure Position Blood Pressure Location Pulse Ox 98 Oxygen Delivery Method Nasal Cannula Oxygen Flow Rate (L/min) 2 Fraction of Inspired Oxygen (FIO2) 07/28/23 22:58 07/28/23 23:00 07/29/23 01:25 Temperature 98.4 F Temperature Source Oral Pulse Rate 79 73 Respiratory Rate 18 31 H Respiratory Effort Normal Non-Labored Respiratory Depth Normal Respiratory Pattern Normal Tachypnea Blood Pressure 161/88 H Blood Pressure Mean 112 Blood Pressure Source Blood Pressure Position Blood Pressure Location Pulse Ox 94 97 Oxygen Delivery Method Nasal Cannula Nasal Cannula Oxygen Flow Rate (L/min) 2 2 Fraction of Inspired Oxygen (FIO2) 30 Weight Weight: 238 lb 8.642 oz Body Mass Index (BMI) 34.2 Physical Exam Narrative General: Alert, Oriented x3, Cooperative, mild to moderate respiratory distress HEENT: Atraumatic, PERRLA, EOMI, Normocephalic Oral: Moist Mucosa Neck: Supple, No JVD Lungs: Diminished, Normal air movement, No rhonchi, No wheeze, rales, tachypnea Cardiovascular: Regular rate and rhythm, Normal S1, Normal S2, No murmurs Abdomen: Soft, Non Tender, Non-Distended, No Hepato-splenomegaly Extremities: Edema, Capillary Refill Less than 3 Seconds Skin: No rashes, No breakdown Musculoskeletal: No Tenderness to Palpation of Joints or Extremities Neurological: No focal neurological deficits, Motor Exam 5/5 strength throughout, Sensory exam intact to light touch and pain Psych/Mental Status: Normal Affect, appropriate Results Lab / Micro Data 07/28/23 15:27 07/28/23 15:27 Labs: Laboratory Results - last 24 hr 07/28/23 15:27: WBC 8.8, RBC 3.80 L, Hgb 10.1 L, Hct 33.3 L, MCV 87.6, MCH 26.6 L, MCHC 30.3 L, RDW Std Deviation 57.8 H, RDW Coeff of Thao 18.5 H, Plt Count 311, MPV 9.2, Immature Gran % (Auto) 1.000 H, Neut % (Auto) 87.3 H, Lymph % (Auto) 3.5 L, Moffat % (Auto) 6.6, Eos % (Auto) 1.0, Baso % (Auto) 0.6, Absolute Neuts (auto) 7.7, Absolute Lymphs (auto) 0.31 L, Nucleated RBC % 0, Differential Comment SEE COMMENT, Platelet Estimate ADEQUATE, RBC Morphology N CHROM, Anisocytosis RARE, PT 16.2 H, INR 1.3, APTT 27.7, Sodium 141, Potassium 3.9, Chloride 109 H, Carbon Dioxide 25.0, Anion Gap 7, BUN 43 H, Creatinine 1.95 H, Estim Creat Clear Calc 47.04, Est GFR (MDRD) Af Amer 44 L, Est GFR (MDRD) Non-Af 37 L, BUN/Creatinine Ratio 22.1 H, Glucose 211 H, Calcium 10.1, Total Bilirubin 0.80, Direct Bilirubin 0.43 H, AST 16, ALT 25, Alkaline Phosphatase 68, Troponin I High Sens 28, B-Natriuretic Peptide 388.4 H, Total Protein 7.4, Albumin 3.4, Globulin 4.0 07/28/23 23:02: POC Glucose 97 ABG Data ABG results: ABG 07/28/23 15:24 Specimen Type ART Sample Site R Radial pH 7.33 L Bicarbonate Actual 24.0 Total CO2 25 Base Excess -2 O2 Saturation 79 L O2 % 50.0 ABG pCO2 45.4 H ABG pO2 47 L Art Test Positive Respiration Rate 12 O2 Delivery Device BiPAP Vent Mode BiLevel Clinical Comments Imaging Radiology Impression Chest X-Ray 07/28/23 15:30 IMPRESSION: Right perihilar interstitial infiltrate in pleural reaction Electronically Signed: Jimmy Portillo MD at 16:50 EDT Reading Location ID and State: [address] [place] [address] Tel , Service support , Chest CTA 07/28/23 16:09 IMPRESSION: Small bilateral pleural effusions and mild edema or interstitial infiltrates. Coronary artery disease. Pacer. Bilateral adrenal adenomas. Electronically Signed: Jimmy Portillo MD at 20:29 EDT , Assessment & Plan Assessment/Plan (1) Acute hypoxemic respiratory failure: (2) CHF (congestive heart failure): PLAN: Plan 1. Acute hypoxic respiratory failure secondary to acute on chronic diastolic CHF/CAD status post stent/essential HTN/HLD/pulmonary hypertension/paroxysmal A- fib with sick sinus syndrome status post pacemaker/FAVIAN ? Continue with BiPAP and Lasix ? Blood pressures are stable, continue with his home medications ? Continue with Plavix, it appears that he was discontinued on his aspirin secondary to GI bleeding ? Continue with ranolazine ? He does wear BiPAP at night for sleep apnea but he does not usually require it during the day ? We will monitor make adjustments as necessary 2. Hypercalcemia secondary to hyperparathyroidism ? She was post to have a parathyroidectomy however it appears that he is had to have multiple stents placed and therefore continue with dual antiplatelet therapy ? Will continue with his Cinacalcet 3. DM2 ? Used to be on Trulicity, and his A1c improved A1c in May was 6.8 4. GERD ? Stable ? Continue with PPI 5. Anxiety/depression ? Stable ? Continue with Paxil DVT: Heparin 75 minutes was spent on direct patient care, including documentation as well as chart review and collaboration with colleagues Charges/Coding Visit Charges Inpatient E&M: 89206 Init Hosp L3
[2023-07-28] MEDS: Heparin Injection (Vial) 5,000 UNIT/ML VIAL 5000 UNIT SC (23:19)
[2023-07-28] MEDS: Sucralfate 1 GM Tablet PO (23:19)
[2023-07-28] MEDS: hydrALAZINE 25 MG Tablet PO (23:19)
[2023-07-28] MEDS: Ranolazine 500 MG Tablet PO (23:20)
[2023-07-28] MEDS: Cinacalcet HCl 30 MG Tablet PO (23:21)
[2023-07-28] MEDS: Metoprolol(XL)Succ 50 MG Tablet PO (23:21)
[2023-07-28] MEDS: oxyCODONE 5 MG Tablet PO (23:27)
[2023-07-28 23:53] LABS: Bedside Glucose 97 mg/dL (74-106)
[2023-07-29] VITALS (17 sets, daily range): BP systolic 113–146; BP diastolic 65–85; PULSE 70–80; RESP 12–31; TEMP 36.1–36.9; O2SAT 91–98; BMI 33.7
[2023-07-29] MEDS: oxyCODONE 5 MG Tablet PO ×4 (04:01→21:50)
[2023-07-29] MEDS: hydrALAZINE 25 MG Tablet PO ×3 (06:09→20:31)
[2023-07-29] MEDS: Sucralfate 1 GM Tablet PO ×4 (06:10→20:32)
[2023-07-29 07:18] LABS: Bedside Glucose 116 mg/dL (74-106)
[2023-07-29 08:30] LABS: Absolute Lymphocyte Count 0.41 X10^3/uL (0.83-4.51); Basophil# 0.03 X10^3/uL; Basophil% 0.4 % (0-1); Eosinophil# 0.17 X10^3/uL; Hematocrit 32.4 % (40-54); Lymphocyte # 0.41 X10^3/ul (0.83-4.51); Lymphocyte % 4.9 % (19-41); Mean Corp Hgb Conc 30.9 g/dL (32-36); Mean Corpuscular Hgb 26.5 pg (27.0-32.0); Mean Corpuscular Volume 85.9 fL (80-94); Mean Platelet Vol. 9.1 fl (6.2-12.0); Monocyte# 0.66 X10^3/uL; Monocyte% 7.9 % (0-10); NRBC Flagged by Analyzer 0 % (0-5); Neutrophil # 7.02 X10^3/uL (2.7-7.7); Neutrophil % 84.2 % (47-70); POSITIVE DIFFERENTIAL YES; Platelet Count 299 K/mm3 (150-450); RBC Distribution Width CV 18.4 % (11.6-14.6); RBC Distribution Width SD 55.9 fl (35.1-43.9); Red Blood Count 3.77 M/mm3 (4.6-6.2); White Blood Count 8.3 K/mm3 (4.4-11.0)
[2023-07-29 08:43] LABS: Anion Gap 7 (5-15); BUN 39 mg/dL (7-18); BUN/Creat Ratio 22.4 RATIO (10-20); Chloride 109 mmol/L (98-107); Creatinine, Serum 1.74 mg/dL (0.70-1.30); EST Glomerular Filtration Rate 42 mL/min (>60); Est Glom Filt Rate - Afr Amer 51 mL/min (>60); Estimated Creatinine Clearance 51.08 ml/min; Glucose 127 mg/dL (74-106); Potassium 3.2 mmol/L (3.5-5.1); Sodium Level 143 mmol/L (136-145)
--- NOTE | 2023-07-29 09:33 | CASEMGMT ---
CLARITA IBARRA Assessment: Face to Face with pt for initial transition planning/care coordination assessment. RN FRED introduced self and role at [facility], pt voices understanding and consents to assessment. Pt is A&O x4, sitting up in bed, and answers all questions appropriately at this time. Care providers, pharmacy, and demographics verified/updated. Admitting Dx: CHF exacerbation PCP:Mery Raymond Specialists: cardio, pulm, endo, and a surgeon for his stomach Preferred [facility]acy: [facility] Insurance: [employer] Prescription Benefit: yes LNOK: brother Miquel, Nephew Sloan Living Arrangements: Pt lives at home in an apartment, alone. Pt has 6-8 stairs to get into his apartment. Pt reports he struggled navigating the stairs, and even walking at times. Pt reports he does not leave the apartment often which helps. Pt uses [employer] delivery to get his groceries, but has fallen just recently from carrying 1-2 bags from outside his apartment door into his apartment. Transportation: Pt uses [facility] transport to get to/from appts. Pt does not drive, will get assist if needed. DME: Cane, Walker, grab bars in shower, oxygen at 2L NC during the day through [employer], and a BiPap at night through [employer] HHC/SNF: Currently active with [facility] for SN and PT, pt has been to [place] multiple times in the past for SNF Pt states no concerns with going home at time of dc based off how he does with therapy. Pt states no further concerns/needs. CM to follow. Advised pt to ask CM if any further question/concerns/needs arise, voices understanding. Pt Goal: Pt reports he plans to move into [facility]. Pt reports he is awaiting literature to arrive in the mail. He has looked locally and reports that there are waiting lists at many of the places. Pt reports he know it will be a long process and does not plan to go to [facility] when DC from the hospital. Pt reports he is open to either returning home with his current HHC or going to SNF at [place] if needed. Plan: Awaiting therapy evaluations, return home with [facility] vs SNF at [place] Maranda MANTILLA, RN, CCM
[2023-07-29] MEDS: Furosemide 40 MG/4 ML Vial IV ×2 (09:34→17:28)
[2023-07-29] MEDS: Heparin Injection (Vial) 5,000 UNIT/ML VIAL 5000 UNIT SC ×2 (09:35→20:32)
[2023-07-29] MEDS: Metoprolol(XL)Succ 50 MG Tablet PO ×2 (09:35→20:33)
[2023-07-29] MEDS: amLODIPine 10 MG Tablet PO (09:36)
[2023-07-29] MEDS: Cinacalcet HCl 30 MG Tablet PO ×2 (09:36→20:34)
[2023-07-29] MEDS: Ranolazine 500 MG Tablet PO ×2 (09:37→20:32)
[2023-07-29] MEDS: Ferrous Sulfate 325 MG Tablet PO (09:37)
[2023-07-29] MEDS: Pantoprazole Sodium 40 MG Tablet PO (09:37)
[2023-07-29] MEDS: Polyethylene Glycol 3350 17 GM PACKET PO (09:37)
[2023-07-29] MEDS: Paroxetine 20 MG Tablet 40 MG PO (09:38)
[2023-07-29] MEDS: Losartan Potassium 25 MG Tablet PO (09:39)
[2023-07-29] MEDS: Clopidogrel Bisulfate 75 MG Tablet PO (09:39)
--- NOTE | 2023-07-29 09:39 | CASEMGMT ---
CLARITA IBARRA discussed HHC with patient. Pt reports he is currently active with [facility] for SN and PT and would like to resume their services on discharge. CLARITA IBARRA discussed SNF as a possibility with patient, based on evaluations. Pt declined SNF choice list. Pt reports he has been to [facility] times in the recent past and they would be FOC.
[2023-07-29] MEDS: Fenofibrate 145 MG Tablet PO (09:40)
[2023-07-29] MEDS: Senna/Docusate Sodium 1 Tablet 2 TABLET PO ×2 (09:40→20:33)
[2023-07-29] MEDS: 0.9% Saline Lock 10 ML Syringe IV ×2 (09:47→17:28)
[2023-07-29 11:57] LABS: Bedside Glucose 211 mg/dL (74-106)
[2023-07-29 15:12] LABS: Bedside Glucose 247 mg/dL (74-106)
[2023-07-29] MEDS: Insulin Lispro 100 UNIT/ML INSULN.PEN SC ×2 (16:34→20:38)
[2023-07-29 17:02] LABS: Bedside Glucose 202 mg/dL (74-106)
--- NOTE | 2023-07-29 18:14 | PCM.PN.HOSP ---
Reason for Visit Reason for Visit: Diagnoses Heart failure, unspecified (07/28/23) Acute respiratory failure with hypoxia (07/28/23) Subjective Subjective Patient was seen and examined today, he remains on low-flow nasal cannula oxygen at this time. Potassium was slightly low this morning, I added potassium to his medications. Objective Data Objective Data Vital Signs: Vital Signs Temp Pulse Resp BP Pulse Ox O2 Del Method O2 Flow Rate 98.5 F 73 18 119/71 98 Nasal Cannula 2 07/29/23 17:32 07/29/23 17:32 07/29/23 17:32 07/29/23 17:32 07/29/23 17:32 07/29/23 17:32 07/29/23 17:32 FiO2 30 07/29/23 03:50 Oxygen Flow Rate (L/min) 2 Oxygen Delivery Method Nasal Cannula Weight: 106.7 kg Body Mass Index (BMI) 33.7 Intake & Output: Intake and Output for Last 24 Hours 07/27/23 07/28/23 07/29/23 23:59 23:59 23:59 Intake Total 1340 / 1340 Output Total 3350 / 3350 Balance -2009 / Lab / Micro Data 07/29/23 08:05 07/29/23 08:05 Labs: Laboratory Results - last 24 hr 07/28/23 23:02: POC Glucose 97 07/29/23 06:08: POC Glucose 116 H 07/29/23 08:05: WBC 8.3, RBC 3.77 L, Hgb 10.0 L, Hct 32.4 L, MCV 85.9, MCH 26.5 L, MCHC 30.9 L, RDW Std Deviation 55.9 H, RDW Coeff of Thao 18.4 H, Plt Count 299, MPV 9.1, Immature Gran % (Auto) 0.600, Neut % (Auto) 84.2 H, Lymph % (Auto) 4.9 L, Kimble % (Auto) 7.9, Eos % (Auto) 2.0, Baso % (Auto) 0.4, Absolute Neuts (auto) 7.0, Absolute Lymphs (auto) 0.41 L, Nucleated RBC % 0, Sodium 143, Potassium 3.2 L, Chloride 109 H, Carbon Dioxide 27.0, Anion Gap 7, BUN 39 H, Creatinine 1.74 H, Estim Creat Clear Calc 51.08, Est GFR (MDRD) Af Amer 51 L, Est GFR (MDRD) Non-Af 42 L, BUN/Creatinine Ratio 22.4 H, Glucose 127 H, Calcium 10.0 07/29/23 11:38: POC Glucose 211 H 07/29/23 14:53: POC Glucose 247 H 07/29/23 16:22: POC Glucose 202 H Radiography Diagnostic Testing: Radiology Impression Chest CTA 07/28/23 16:09 IMPRESSION: Small bilateral pleural effusions and mild edema or interstitial infiltrates. Coronary artery disease. Pacer. Bilateral adrenal adenomas. Electronically Signed: Jimmy Portillo MD at 20:29 EDT Reading Location ID and State: [facility] / [place] Tel , Service support , Physical Exam Const alert, oriented x3 and no apparent distress Constitutional Narrative: Patient appears older than stated age General Appearance: cooperative, well kempt and well developed Orientation / Consciousness: awake, oriented to person, oriented to place and oriented to time HEENT normocephalic and moist oral mucous membranes Eyes PERRL, EOMs intact bilaterally and conjunctivae normal Neck supple, no JVD, thyroid normal and no carotid bruits General: trachea midline Resp normal respiratory effort and clear to auscultation bilaterally Auscultation: Negative for rales, rhonchi or wheezes Cardio S1 normal heart sound, S2 normal heart sound, no rub and no gallops Cardio Narrative: Heart rate and rhythm is irregular, there is a 2/6 systolic murmur noted at the apex and right sternal border GI normal to inspection, nondistended, normoactive bowel sounds, soft to palpation, non-tender and non-distended Skin no rashes or lesions noted General Skin Exam: no breakdown Neuro oriented x3, CN's II-XII intact bilaterally, no focal motor deficits and no sensory deficits noted Sensorium / Orientation: awake and alert Speech: speech normal Psych affect normal Assessment & Plan Assessment/Plan (1) CHF (congestive heart failure): PLAN: Plan 1. Acute hypoxic respiratory failure secondary to acute on chronic diastolic congestive heart failure-continue IV diuretics and current medications, monitor pulse ox, patient is on low-flow oxygen #2 acute on chronic diastolic congestive heart failure-continue IV diuresis, monitor labs #3 type 2 diabetes-patient was placed on sliding scale insulin and Lantus insulin, he takes U-500 insulin at home #4 chronic anxiety/depression-patient will continue Paxil #5 GERD-patient is on a PPI #6 chronic anemia-I will obtain ferritin and iron studies on the patient #7 stage IIIb chronic kidney disease-complicates care, management, recovery, and prognosis, labs will be monitored #8 hypokalemia-potassium supplementation was given, labs will be monitored Total clinical time spent by myself addressing the patient's medical issues, reviewing all of his data, and collaborating with patient's care team: 35 minutes Charges/Coding Visit Charges Inpatient E&M: 34180 Subs Hosp L2
[2023-07-29] MEDS: Potassium Chloride Oral Tablet 20 MEQ 40 MEQ PO (18:18)
[2023-07-29] MEDS: Insulin Glargine-YFGN 100 UNIT/ML Pen 15 UNIT SC (20:38)
[2023-07-29 22:11] LABS: Bedside Glucose 188 mg/dL (74-106)
[2023-07-30] VITALS (14 sets, daily range): BP systolic 110–147; BP diastolic 71–87; PULSE 70–78; RESP 12–26; TEMP 36–36.6; O2SAT 94–98; BMI 32.9
[2023-07-30] MEDS: oxyCODONE 5 MG Tablet PO ×4 (02:28→23:12)
[2023-07-30] MEDS: Sucralfate 1 GM Tablet PO ×4 (06:16→22:14)
[2023-07-30] MEDS: hydrALAZINE 25 MG Tablet PO ×3 (06:16→22:13)
[2023-07-30 06:40] LABS: Bedside Glucose 109 mg/dL (74-106)
[2023-07-30 07:01] LABS: Anion Gap 4 (5-15); BUN 38 mg/dL (7-18); BUN/Creat Ratio 20.8 RATIO (10-20); Calcium,Total 10.1 mg/dL (8.5-10.1); Chloride 108 mmol/L (98-107); Creatinine, Serum 1.83 mg/dL (0.70-1.30); EST Glomerular Filtration Rate 40 mL/min (>60); Est Glom Filt Rate - Afr Amer 48 mL/min (>60); Estimated Creatinine Clearance 47.99 ml/min; Ferritin 85 ng/mL (26-388); Glucose 116 mg/dL (74-106); Iron 46 ug/dL (65-175); Iron Binding Capacity,Total 427 ug/dL (250-450); PERCENT IRON SATURATION 10.8 % (15.0-55.0); Potassium 3.4 mmol/L (3.5-5.1); Sodium Level 142 mmol/L (136-145)
[2023-07-30] MEDS: 0.9% Saline Lock 10 ML Syringe IV ×2 (08:58→16:53)
[2023-07-30] MEDS: Furosemide 40 MG/4 ML Vial IV ×2 (08:59→16:53)
[2023-07-30] MEDS: Heparin Injection (Vial) 5,000 UNIT/ML VIAL 5000 UNIT SC ×2 (08:59→22:14)
[2023-07-30] MEDS: Ferrous Sulfate 325 MG Tablet PO ×2 (08:59→16:43)
[2023-07-30] MEDS: Losartan Potassium 25 MG Tablet PO (08:59)
[2023-07-30] MEDS: Potassium Chloride Oral Tablet 20 MEQ PO ×2 (08:59→16:43)
[2023-07-30] MEDS: Clopidogrel Bisulfate 75 MG Tablet PO (09:00)
[2023-07-30] MEDS: amLODIPine 10 MG Tablet PO (09:00)
[2023-07-30] MEDS: Paroxetine 20 MG Tablet 40 MG PO (09:00)
[2023-07-30] MEDS: Pantoprazole Sodium 40 MG Tablet PO (09:00)
[2023-07-30] MEDS: Polyethylene Glycol 3350 17 GM PACKET PO (09:00)
[2023-07-30] MEDS: Cinacalcet HCl 30 MG Tablet PO ×2 (09:01→22:13)
[2023-07-30] MEDS: Senna/Docusate Sodium 1 Tablet 2 TABLET PO (09:01)
[2023-07-30] MEDS: Metoprolol(XL)Succ 50 MG Tablet PO ×2 (09:01→22:15)
[2023-07-30] MEDS: Fenofibrate 145 MG Tablet PO (09:01)
[2023-07-30] MEDS: Ranolazine 500 MG Tablet PO ×2 (09:01→22:14)
[2023-07-30] MEDS: Insulin Glargine-YFGN 100 UNIT/ML Pen 15 UNIT SC ×2 (10:50→22:19)
[2023-07-30] MEDS: Insulin Lispro 100 UNIT/ML INSULN.PEN SC ×3 (11:02→22:18)
[2023-07-30 11:13] LABS: Bedside Glucose 267 mg/dL (74-106)
--- NOTE | 2023-07-30 15:15 | PN.HOSP_ITS ---
Reason for Visit Reason for Visit: Diagnoses Heart failure, unspecified (07/28/23) Acute respiratory failure with hypoxia (07/28/23) Subjective Subjective Patient was seen and examined today, he is currently on 2 L of oxygen via nasal cannula. His potassium was slightly low today at 3.4. Patient states he wears oxygen at home as needed at night. Objective Data Objective Data Vital Signs: Vital Signs Temp Pulse Resp BP Pulse Ox O2 Del Method O2 Flow Rate 97.8 F 73 16 110/71 98 Nasal Cannula 2 07/30/23 13:09 07/30/23 13:14 07/30/23 13:09 07/30/23 13:14 07/30/23 13:09 07/30/23 13:09 07/30/23 13:09 FiO2 30 07/30/23 05:06 Oxygen Flow Rate (L/min) 2 Oxygen Delivery Method Nasal Cannula Weight: 104.1 kg Body Mass Index (BMI) 32.9 Intake & Output: Intake and Output for Last 24 Hours 07/28/23 07/29/23 07/30/23 23:59 23:59 23:59 Intake Total 1580 / 1580 480 / 480 Output Total 4500 / 4500 1600 / 1600 Balance -2920 / -2920 -1120 / -1120 Lab / Micro Data 07/29/23 08:05 07/30/23 06:03 Labs: Laboratory Results - last 24 hr 07/29/23 16:22: POC Glucose 202 H 07/29/23 20:38: POC Glucose 188 H 07/30/23 06:03: Sodium 142, Potassium 3.4 L, Chloride 108 H, Carbon Dioxide 30.0, Anion Gap 4 L, BUN 38 H, Creatinine 1.83 H, Estim Creat Clear Calc 47.99, Est GFR (MDRD) Af Amer 48 L, Est GFR (MDRD) Non-Af 40 L, BUN/Creatinine Ratio 20.8 H, Glucose 116 H, Calcium 10.1, Iron 46 L, TIBC 427, Iron Saturation 10.8 L , Ferritin 85 07/30/23 06:18: POC Glucose 109 H 07/30/23 10:49: POC Glucose 267 H Physical Exam Narrative alert, oriented x3 and no apparent distress Constitutional Narrative: Patient appears older than stated age General Appearance: cooperative, well kempt and well developed Orientation / Consciousness: awake, oriented to person, oriented to place and oriented to time HEENT normocephalic and moist oral mucous membranes Eyes PERRL, EOMs intact bilaterally and conjunctivae normal Neck supple, no JVD, thyroid normal and no carotid bruits General: trachea midline Resp normal respiratory effort and clear to auscultation bilaterally Auscultation: Negative for rales, rhonchi or wheezes Cardio S1 normal heart sound, S2 normal heart sound, no rub and no gallops Cardio Narrative: Heart rate and rhythm is irregular, there is a 2/6 systolic murmur noted at the apex and right sternal border GI normal to inspection, nondistended, normoactive bowel sounds, soft to palpation, non-tender and non-distended Skin no rashes or lesions noted General Skin Exam: no breakdown Neuro oriented x3, CN's II-XII intact bilaterally, no focal motor deficits and no sensory deficits noted Sensorium / Orientation: awake and alert Speech: speech normal Psych affect normal Assessment & Plan Assessment/Plan (1) CHF (congestive heart failure): PLAN: Plan 1. Acute hypoxia secondary to acute on chronic diastolic congestive heart failure-pulse ox will be monitored, patient is on nasal cannula oxygen. #2 acute on chronic diastolic congestive heart failure-continue IV diuresis, monitor labs #3 type 2 diabetes-patient was placed on sliding scale insulin and Lantus insulin, he takes U-500 insulin at home #4 chronic anxiety/depression-patient will continue Paxil #5 GERD-patient is on a PPI #6 Chronic iron deficiency anemia-patient will be placed on an iron supplement #7 stage IIIb chronic kidney disease-complicates care, management, recovery, and prognosis, labs will be monitored #8 hypokalemia-potassium supplementation was given, labs will be monitored Total clinical time spent by myself addressing the patient's medical issues, reviewing all of his data, and collaborating with patient's care team: 35 minutes Charges/Coding Visit Charges Inpatient E&M: 74747 Subs Hosp L2
[2023-07-30 17:35] LABS: Bedside Glucose 160 mg/dL (74-106)
[2023-07-30 22:45] LABS: Bedside Glucose 193 mg/dL (74-106)
[2023-07-31] VITALS (11 sets, daily range): BP systolic 108–148; BP diastolic 66–89; PULSE 70–76; RESP 12–24; TEMP 36.6–37; O2SAT 94–100; BMI 33.3
[2023-07-31] MEDS: hydrALAZINE 25 MG Tablet PO ×2 (05:43→12:59)
[2023-07-31] MEDS: Sucralfate 1 GM Tablet PO ×2 (05:43→11:57)
[2023-07-31 06:52] LABS: Bedside Glucose 123 mg/dL (74-106)
[2023-07-31 07:27] LABS: Anion Gap 5 (5-15); BUN 37 mg/dL (7-18); BUN/Creat Ratio 20.3 RATIO (10-20); Calcium,Total 10.1 mg/dL (8.5-10.1); Chloride 105 mmol/L (98-107); Creatinine, Serum 1.82 mg/dL (0.70-1.30); EST Glomerular Filtration Rate 40 mL/min (>60); Est Glom Filt Rate - Afr Amer 48 mL/min (>60); Glucose 125 mg/dL (74-106); Potassium 3.7 mmol/L (3.5-5.1); Sodium Level 138 mmol/L (136-145)
[2023-07-31] MEDS: Heparin Injection (Vial) 5,000 UNIT/ML VIAL 5000 UNIT SC (08:48)
[2023-07-31] MEDS: Furosemide 40 MG/4 ML Vial IV (08:48)
[2023-07-31] MEDS: Potassium Chloride Oral Tablet 20 MEQ PO (08:48)
[2023-07-31] MEDS: Pantoprazole Sodium 40 MG Tablet PO (08:49)
[2023-07-31] MEDS: Clopidogrel Bisulfate 75 MG Tablet PO (08:49)
[2023-07-31] MEDS: Cinacalcet HCl 30 MG Tablet PO (08:49)
[2023-07-31] MEDS: Losartan Potassium 25 MG Tablet PO (08:49)
[2023-07-31] MEDS: Metoprolol(XL)Succ 50 MG Tablet PO (08:49)
[2023-07-31] MEDS: amLODIPine 10 MG Tablet PO (08:49)
[2023-07-31] MEDS: Ranolazine 500 MG Tablet PO (08:49)
[2023-07-31] MEDS: Fenofibrate 145 MG Tablet PO (08:50)
[2023-07-31] MEDS: Paroxetine 20 MG Tablet 40 MG PO (08:50)
[2023-07-31] MEDS: oxyCODONE 5 MG Tablet PO (08:56)
[2023-07-31] MEDS: Albuterol 2.5 MG/3 ML VIAL.NEB. INHALATION (09:19)
--- NOTE | 2023-07-31 10:14 | CASEMGMT ---
Per physician patient would like to go to a shelter. SW confirmed with patient that he would like to go to [facility]. SW sent a referral to [facility] via [facility]. [facility] can accept patient and will start pre-cert. Plan: d/c to [facility] pending insurance approval. Dipika FANG
--- NOTE | 2023-07-31 11:19 | CASEMGMT ---
Patient was approved for [facility]. GLORIA notified physician. Physician will send patient today. [facility] notified [facility] that patient will come today. Plan: [facility] under skilled level of care. Dipika FANG
--- NOTE | 2023-07-31 11:28 | PCM.TXEXTCAR ---
Diet Diet Order/Speech Therapy: 07/30/23 12:06 ADA [Diet: Cardiac: Calorie-Controlled] Is pt able to select menu?: Yes How many daily calories?: 1800 calorie Routine Orders/Code Status O2 Liters per Minute: 2 O2 Frequency: Continuous Keep PO Greater than or Equal to (%): 90 Routine Lab Work: - (Fingerstick blood sugars AC nightly, sliding scale Humalog per result: 200-250: 5 units subcu, 251-300: 8 units subcu, 301-350: 12 units subcu) Code Status: Full Code Therapies Weight Bearing: Full weight bearing Problem/Diagnosis (1) CHF (congestive heart failure): Status: Acute Code(s): I50.9 - Heart failure, unspecified (2) Chronic pain of both knees: Status: Chronic Code(s): M25.561 - Pain in right knee; M25.562 - Pain in left knee; G89.29 - Other chronic pain Plan 1. Acute hypoxia secondary to acute on chronic diastolic congestive heart failure-pulse ox will be monitored, patient is on nasal cannula oxygen. #2 acute on chronic diastolic congestive heart failure-continue IV diuresis, monitor labs #3 type 2 diabetes-patient was placed on sliding scale insulin and Lantus insulin, he takes U-500 insulin at home #4 chronic anxiety/depression-patient will continue Paxil #5 GERD-patient is on a PPI #6 Chronic iron deficiency anemia-patient will be placed on an iron supplement #7 stage IIIb chronic kidney disease-complicates care, management, recovery, and prognosis, labs will be monitored #8 hypokalemia-potassium supplementation was given, labs will be monitored Total clinical time spent by myself addressing the patient's medical issues, reviewing all of his data, and collaborating with patient's care team: 35 minutes Allergies/Procedures Done in Hospital Allergies No Known Allergies Allergy (Verified 07/28/23 14:40) Procedures: None Type of Care/Length of Stay Estimated LOS: Convalescent Care Less Than 30 days Type of Care Needed: Skilled Rehab Potential: Good Prognosis: Good Additional Orders/Day of Discharge H&P will serve as current which was dated: 07/28/23 Day of Discharge: 07/31/23 Dietary and Speech Recommendations Dietitian Recommendations/Changes: Discharge Plan Admission Admit Date/Time: 07/28/23 21:35 Primary Reason for Your Visit: Congestive heart failure Attending Provider: Tunde Miller Primary Care Provider: Mery Raymond Consulting Providers: Narendra Schwartz Discharge Orders/Prescriptions Prescriptions: New hydralazine 25 mg Tablet 25 mg PO TID Qty: 0 0RF losartan 25 mg Tablet 25 mg PO DAILY Qty: 0 0RF oxycodone 5 mg Tablet 5 mg PO Q4H PRN PRN (Reason: Pain Score 6-10) 2 Days Qty: 10 0RF sucralfate 1 gram Tablet 1 g PO 1HR_ACHS Qty: 0 0RF sennosides-docusate sodium [Stool Softener-Stimulant Laxat] 8.6-50 mg Tablet 2 tab PO BID Qty: 0 0RF insulin glargine-yfgn 100 unit/mL (3 mL) Insulin Pen 15 unit subcut BID Qty: 0 0RF potassium chloride 20 mEq Tablet,Er Particles/Crystals 20 meq PO BIDCM Qty: 0 0RF Continued cinacalcet 30 mg tablet 30 mg PO BID Qty: 60 8RF albuterol sulfate 90 mcg/actuation HFA aerosol inhaler 2 puff inhalation Q6H PRN (Reason: shortness of breath or wheezing) amlodipine 5 mg tablet 10 mg PO DAILY clopidogrel 75 mg tablet 75 mg PO DAILY Qty: 90 3RF fenofibrate micronized 200 mg capsule 200 mg PO DAILY Qty: 30 12RF losartan 25 mg tablet 25 mg PO DAILY Qty: 90 3RF Hold Instructions: until you see nephrology ranolazine 500 mg tablet extended release 12 hr 500 mg PO BID Qty: 180 3RF ferrous sulfate 325 mg (65 mg iron) tablet 325 mg PO DAILY Qty: 90 1RF paroxetine HCl 40 mg tablet 40 mg PO DAILY Qty: 30 1RF pantoprazole 40 mg tablet,delayed release (DR/EC) 40 mg PO DAILY Qty: 90 1RF metoprolol succinate 50 mg tablet extended release 24 hr 50 mg PO Q12H Qty: 60 11RF Changed furosemide 40 mg tablet 40 mg PO BID Qty: 30 1RF Discontinued (DME) Handicap Placard See Rx Instructions .ROUTE .MEDSUPPLY Qty: 1 0RF Rx Instructions: As directed, length of time 3 years (DME) JillStyle Tiffanie 2 [place] [facility] See Rx Instructions .ROUTE .MEDSUPPLY Qty: 1 0RF Rx Instructions: As directed nitroglycerin 0.4 mg tablet, sublingual 0.4 mg sublingual Q5M PRN (Reason: chest pain) Rx Instructions: do not exceed 3 doses per episode (DME) FreeStyle Tiffanie 2 Sensor Kit See Rx Instructions .ROUTE .MEDSUPPLY Qty: 2 6RF Rx Instructions: As directed lidocaine 5 % Adhesive Patch,Medicated 1 patch topical DAILY Qty: 15 1RF Protocol: *Topical Application Instructions APPLICATION INSTRUCTIONS: Right knee Rx Instructions: For use on right knee oxycodone 5 mg Tablet 5 mg PO Q4H PRN PRN (Reason: Pain Score 6-10) 3 Days Qty: 7 0RF Trulicity 1.5 mg/0.5 mL pen injector 1.5 mg subcut QWEEK (DME) OneTouch Verio test strips Strip See Rx Instructions .ROUTE .MEDSUPPLY Rx Instructions: daily Ozempic 1 mg/dose (4 mg/3 mL) pen injector 0.1333 mg subcut QWEEK Humulin R U-500 (Conc) Kwikpen 500 unit/mL (3 mL) insulin pen 30 unit subcut TID Patient Comments: takes 30 or less depending on appetite or meal (DME) pen needle, diabetic [BD Ultra-Fine Lorie Pen Needle] 32 gauge x 5/32 needle See Rx Instructions .ROUTE .MEDSUPPLY Qty: 360 5RF Rx Instructions: 4x/day No Action potassium chloride 20 mEq tablet,ER particles/crystals 20 meq PO BID Patient Comments: TAKE ONE (1) TABLET BY MOUTH TWICE DAILY FOR POTASSIUM sucralfate 1 gram tablet 1 g PO 4X/DAY hydralazine 25 mg tablet 25 mg PO TID Qty: 90 2RF Referrals / Follow Up: Mery Raymond MD [Primary Care Provider] - Disposition Disposition (needs filled in before D/C Order can be placed): [facility]
--- NOTE | 2023-07-31 11:47 | DS.PCM_ITS ---
Providers Date of Admission: 07/28/23 Date of Discharge: 07/31/23 Primary Care Physician: Dr. Mery Raymond MD Reason For Visit: CHF EXACERBATION Diagnosis Discharge Diagnosis (1) CHF (congestive heart failure): Status: Acute Code(s): I50.9 - Heart failure, unspecified (2) Chronic pain of both knees: Status: Chronic Code(s): M25.561 - Pain in right knee; M25.562 - Pain in left knee; G89.29 - Other chronic pain Plan 1. Acute hypoxia secondary to acute on chronic diastolic congestive heart failure-pulse ox will be monitored, patient is on nasal cannula oxygen. #2 acute on chronic diastolic congestive heart failure-continue IV diuresis, monitor labs #3 type 2 diabetes-patient was placed on sliding scale insulin and Lantus insulin, he takes U-500 insulin at home #4 chronic anxiety/depression-patient will continue Paxil #5 GERD-patient is on a PPI #6 Chronic iron deficiency anemia-patient will be placed on an iron supplement #7 stage IIIb chronic kidney disease-complicates care, management, recovery, and prognosis, labs will be monitored #8 hypokalemia-potassium supplementation was given, labs will be monitored Total clinical time spent by myself addressing the patient's medical issues, rev iewing all of his data, and collaborating with patient's care team: 35 minutes Medications at Discharge Home Medications clopidogrel 75 mg tablet 75 mg PO DAILY BLOOD THINNER #90 tabs 10/03/22 fenofibrate micronized 200 mg capsule 200 mg PO DAILY cholesterol #30 caps 10/20/22 losartan 25 mg tablet 25 mg PO DAILY blood pressure #90 tabs 12/08/22 ranolazine 500 mg tablet,extended release,12 hr 500 mg PO BID chest pain #180 tabs 12/20/22 cinacalcet 30 mg tablet 30 mg PO BID hypercalcemia #60 tabs 03/07/23 albuterol sulfate 90 mcg/actuation aerosol inhaler 2 puff inhalation Q6H PRN shortness of breath or wheezing 04/14/23 amlodipine 5 mg tablet 10 mg PO DAILY blood pressure 04/14/23 ferrous sulfate 325 mg (65 mg iron) tablet 325 mg PO DAILY supplement #90 tabs 05/19/23 paroxetine HCl 40 mg tablet 40 mg PO DAILY mood #30 tabs 05/19/23 pantoprazole 40 mg tablet,delayed release 40 mg PO DAILY GI #90 tabs 06/01/23 potassium chloride 20 mEq tablet,extended release(part/cryst) 20 meq PO BID suppliment 06/07/23 metoprolol succinate 50 mg tablet,extended release 24 hr 50 mg PO Q12H blood pressure #60 tabs 06/12/23 sucralfate 1 gram tablet 1 g PO 4X/DAY na 07/11/23 hydralazine 25 mg tablet 25 mg PO TID WATER PILL #90 tabs 07/19/23 furosemide 40 mg tablet 40 mg PO BID water pill #30 tabs 07/31/23 hydralazine 25 mg tablet 25 mg PO TID #0 tabs 07/31/23 insulin glargine-yfgn 100 unit/mL (3 mL) subcutaneous pen 15 unit (0.15 mL) subcut BID #0 mL 07/31/23 losartan 25 mg tablet 25 mg PO DAILY #0 tabs 07/31/23 oxycodone 5 mg tablet 5 mg PO Q4H PRN PRN Pain Score 6-10 2 days #10 tabs 07/31/23 potassium chloride 20 mEq tablet,extended release(part/cryst) 20 meq PO BIDCM #0 tabs 07/31/23 sennosides 8.6 mg-docusate sodium 50 mg tablet (Stool Softener-Stimulant Laxative) 2 tab PO BID #0 tabs 07/31/23 sucralfate 1 gram tablet 1 g PO 1HR_ACHS #0 tabs 07/31/23 Hospital Course Operations None Procedures None Summary of Care Provided Minutes Spent on Discharge: 33 Hospital Course: This 67-year-old white male was seen in the emergency room at [facility] with complaints of increased shortness of breath. Workup in the emergency room included chest x-ray which indicated the patient was in congestive heart failure, he was admitted to PCU and placed on IV diuresis, he was seen by PT and OT and it was felt he would benefit from inpatient skilled placement for short-term rehab services, patient consented to this. Patient remained on oxygen at a low flow rate via nasal cannula during his hospitalization, patient had evidence of chronic kidney disease with elevated creatinine. On 07/31/2023, patient was seen and examined: On examination he appeared older than his stated age. Vital signs as documented. Skin warm and dry and without overt rashes. Neck without JVD, neck was supple, trachea midline, thyroid was normal. Lungs clear bilaterally, normal air movement was noted. Heart exam notable for irregular rhythm, normal sounds and absence of murmurs, rubs or gallops. Abdomen unremarkable and without evidence of organomegaly, masses, or abdominal aortic enlargement. Bowel sounds are present, abdomen is not distended. Extremities nonedematous, no cyanosis was noted, no clubbing was noted. Neuro: Cranial nerves II through XII are grossly intact, no focal motor deficits were noted, sensation to light touch and pinprick intact, motor exam 5/5 throughout. Psych: Patient is alert and oriented x3, he does not appear anxious or depressed, he does not appear agitated. On 07/31/2023, patient was seen and examined and felt to be in stable condition for transfer to a residential facility for further care. Weight / BMI Weight Weight: 105.2 kg Body Mass Index (BMI) 33.3 ABG / Lab / Microbiology Data 07/29/23 08:05 07/31/23 06:38 Laboratory: Laboratory Results - last 24 hr 07/30/23 16:40: POC Glucose 160 H 07/30/23 22:18: POC Glucose 193 H 07/31/23 06:31: POC Glucose 123 H 07/31/23 06:38: Sodium 138, Potassium 3.7, Chloride 105, Carbon Dioxide 28.0, Anion Gap 5, BUN 37 H, Creatinine 1.82 H, Estim Creat Clear Calc 48.50, Est GFR (MDRD) Af Amer 48 L, Est GFR (MDRD) Non-Af 40 L, BUN/Creatinine Ratio 20.3 H, Glucose 125 H, Calcium 10.1 Meaningful Use Info Meaningful Use Meaningful Use Diagnoses (Choose all that apply): CHF CHF LUCIAN/ARB ordered at discharge?: Yes Documented LVEF (%): 60 Ischemic Stroke Statin Dosing Therapy Reference: STATIN DOSE THERAPY REFERENCE: * Patients > 75 years receive moderate or high dose statin therapy. * Patients 75 years or YOUNGER should receive HIGH intensity statin dose unless contraindicated. You will be required to document reason for non-treatment if statin daily dose does not meet guidelines. HIGH DOSE STATIN THERAPY DAILY Atorvastatin > than or = to 40 mg Rosuvastatin > than or = to 20 mg Amlodipine + Atorvastatin > than or = to 2.5/40 mg Ezetimibe + Simvastatin 10/80 mg Simvastatin 80mg Discharge Plan Admission Admit Date/Time: 07/28/23 21:35 Primary Reason for Your Visit: Congestive heart failure Attending Provider: Tunde Miller Primary Care Provider: Mery Raymond Consulting Providers: Narendra Schwartz Discharge Orders/Prescriptions Prescriptions: New hydralazine 25 mg Tablet 25 mg PO TID Qty: 0 0RF losartan 25 mg Tablet 25 mg PO DAILY Qty: 0 0RF oxycodone 5 mg Tablet 5 mg PO Q4H PRN PRN (Reason: Pain Score 6-10) 2 Days Qty: 10 0RF sucralfate 1 gram Tablet 1 g PO 1HR_ACHS Qty: 0 0RF sennosides-docusate sodium [Stool Softener-Stimulant Laxat] 8.6-50 mg Tablet 2 tab PO BID Qty: 0 0RF insulin glargine-yfgn 100 unit/mL (3 mL) Insulin Pen 15 unit subcut BID Qty: 0 0RF potassium chloride 20 mEq Tablet,Er Particles/Crystals 20 meq PO BIDCM Qty: 0 0RF Continued cinacalcet 30 mg tablet 30 mg PO BID Qty: 60 8RF albuterol sulfate 90 mcg/actuation HFA aerosol inhaler 2 puff inhalation Q6H PRN (Reason: shortness of breath or wheezing) amlodipine 5 mg tablet 10 mg PO DAILY clopidogrel 75 mg tablet 75 mg PO DAILY Qty: 90 3RF fenofibrate micronized 200 mg capsule 200 mg PO DAILY Qty: 30 12RF losartan 25 mg tablet 25 mg PO DAILY Qty: 90 3RF Hold Instructions: until you see nephrology ranolazine 500 mg tablet extended release 12 hr 500 mg PO BID Qty: 180 3RF ferrous sulfate 325 mg (65 mg iron) tablet 325 mg PO DAILY Qty: 90 1RF paroxetine HCl 40 mg tablet 40 mg PO DAILY Qty: 30 1RF pantoprazole 40 mg tablet,delayed release (DR/EC) 40 mg PO DAILY Qty: 90 1RF metoprolol succinate 50 mg tablet extended release 24 hr 50 mg PO Q12H Qty: 60 11RF Changed furosemide 40 mg tablet 40 mg PO BID Qty: 30 1RF Discontinued (DME) Handicap Placard See Rx Instructions .ROUTE .MEDSUPPLY Qty: 1 0RF Rx Instructions: As directed, length of time 3 years (DME) FreeStyle Tiffanie 2 [place] See Rx Instructions .ROUTE .MEDSUPPLY Qty: 1 0RF Rx Instructions: As directed nitroglycerin 0.4 mg tablet, sublingual 0.4 mg sublingual Q5M PRN (Reason: chest pain) Rx Instructions: do not exceed 3 doses per episode (DME) FreeStyle Tiffanie 2 Sensor Kit See Rx Instructions .ROUTE .MEDSUPPLY Qty: 2 6RF Rx Instructions: As directed lidocaine 5 % Adhesive Patch,Medicated 1 patch topical DAILY Qty: 15 1RF Protocol: *Topical Application Instructions APPLICATION INSTRUCTIONS: Right knee Rx Instructions: For use on right knee oxycodone 5 mg Tablet 5 mg PO Q4H PRN PRN (Reason: Pain Score 6-10) 3 Days Qty: 7 0RF Trulicity 1.5 mg/0.5 mL pen injector 1.5 mg subcut QWEEK (DME) OneTouch Verio test strips Strip See Rx Instructions .ROUTE .MEDSUPPLY Rx Instructions: daily Ozempic 1 mg/dose (4 mg/3 mL) pen injector 0.1333 mg subcut QWEEK Humulin R U-500 (Conc) Kwikpen 500 unit/mL (3 mL) insulin pen 30 unit subcut TID Patient Comments: takes 30 or less depending on appetite or meal (DME) pen needle, diabetic [BD Ultra-Fine Lorie Pen Needle] 32 gauge x 5/32 needle See Rx Instructions .ROUTE .MEDSUPPLY Qty: 360 5RF Rx Instructions: 4x/day No Action potassium chloride 20 mEq tablet,ER particles/crystals 20 meq PO BID Patient Comments: TAKE ONE (1) TABLET BY MOUTH TWICE DAILY FOR POTASSIUM sucralfate 1 gram tablet 1 g PO 4X/DAY hydralazine 25 mg tablet 25 mg PO TID Qty: 90 2RF Referrals / Follow Up: Mery Raymond MD [Primary Care Provider] - Disposition Disposition (needs filled in before D/C Order can be placed[facility] Charges/Coding Visit Charges Inpatient E&M: 67802 Disch Hosp >30min
[2023-07-31] MEDS: Insulin Lispro 100 UNIT/ML INSULN.PEN SC (11:56)
[2023-07-31] MEDS: Insulin Glargine-YFGN 100 UNIT/ML Pen 15 UNIT SC (11:56)
[2023-07-31] MEDS: Ferrous Sulfate 325 MG Tablet PO (11:57)
--- NOTE | 2023-07-31 12:09 | CASEMGMT ---
GLORIA completed a 7000 in evocatal system. GLORIA called [facility] and arranged for patient to get picked up at 1:30 via wheelchair. GLORIA sent orders and stockroom supervisor time to [facility]. GLORIA notified patient, pathology secretary/transcriptionist, and RN of stockroom supervisor time. All in agreement with discharge plan. Plan: d/c to [place] [facility] under skilled level of care on a convalescent stay. Physicians will transport patient via wheelchair. Dipika Orr CLINICAL PROGRAM MANAGER CONSTRUCTION GRIP
[2023-07-31 12:40] LABS: Bedside Glucose 177 mg/dL (74-106)
--- NOTE | 2023-07-31 12:44 | CASEMGMT ---
GLORIA notified [facility] that patient is going to [facility] [place] short term for rehab. Dipika Orr CEMENTER HAND SUPERVISOR QUILTING
--- NOTE | 2023-07-31 13:25 | NURSING ---
Report called to [facility] at [facility] on 07/30, no answer, this RN left message to call back.
== END 2023-07-31 13:04 | disposition skilled nursing facility (03) | DRG 291 ==
LOC: ED 20:34 → PCU 21:52
PROVIDERS: Admitting Provider Family Medicine; Emergency Provider Emergency Medicine; PCP Internal Medicine; Referring Provider Family Medicine; Visit Provider Internal Medicine
DX: I13.0 Hypertensive heart and chronic kidney disease with heart failure and stage 1 through stage 4 chronic kidney disease, or unspecified chronic kidney disease (principal); I50.33 Acute on chronic diastolic (congestive) heart failure; I27.20 Pulmonary hypertension, unspecified; I49.5 Sick sinus syndrome; E11.22 Type 2 diabetes mellitus with diabetic chronic kidney disease; D50.9 Iron deficiency anemia, unspecified; E21.3 Hyperparathyroidism, unspecified; J44.9 Chronic obstructive pulmonary disease, unspecified; N18.32 Chronic kidney disease, stage 3b; I48.0 Paroxysmal atrial fibrillation; F32.A Depression, unspecified; E78.00 Pure hypercholesterolemia, unspecified; I25.10 Atherosclerotic heart disease of native coronary artery without angina pectoris; G47.33 Obstructive sleep apnea (adult) (pediatric); E83.52 Hypercalcemia; K21.9 Gastro-esophageal reflux disease without esophagitis; M25.562 Pain in left knee; M25.561 Pain in right knee; E87.6 Hypokalemia; F41.9 Anxiety disorder, unspecified; R09.02 Hypoxemia; G89.29 Other chronic pain; Z79.02 Long term (current) use of antithrombotics/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; Z79.82 Long term (current) use of aspirin; Z79.85 Long-term (current) use of injectable non-insulin antidiabetic drugs; Z79.899 Other long term (current) drug therapy; Z95.0 Presence of cardiac pacemaker; Z95.5 Presence of coronary angioplasty implant and graft
CPT/HCPCS: 36415; 36600; 71045; 71275; 80048; 80076; 82728; 82803; 82962; 83540; 83550; 83880; 84484; 85025; 85610; 85730; 94002; 94003; 94640; 94762; 97110; 97162; 97166; 97530; 97535; 97802; 99285; Q9967; A4216; J1940

== ENCOUNTER 2023-08-11 17:22 | Emergency (ER) | payer MEDICARE, SELFPAY ==
[2023-03-13 16:01] VITALS: BMI 43.3
[2023-08-11 17:24] VITALS: BP 182/101; PULSE 80; RESP 24; TEMP 37.3; O2SAT 94; BMI 36.5
--- NOTE | 2023-08-11 17:33 | EKG12_ITS ---
Test Reason : Blood Pressure : / mmHG Vent. Rate : 077 BPM Atrial Rate : 000 BPM P-R Int : 000 ms QRS Dur : 102 ms QT Int : 376 ms P-R-T Axes : 000 002 255 degrees QTc Int : 425 ms Atrial fibrillation with frequent ventricular-paced complexes Septal infarct , age undetermined ST & T wave abnormality, consider inferior ischemia ST & T wave abnormality, consider anterolateral ischemia Abnormal ECG Confirmed by BAILEE PIZANO, NII ([id number]), subeditor NAZ NORIEGA ([id number]) on 08/14/2023 11:39:40 AM Referred By: Confirmed By:NII MOROCHO MD
--- NOTE | 2023-08-11 17:38 | EDS_ITS ---
HPI History of Present Illness Chief Complaint: Edema Narrative Narrative: 67-year-old male past medical history of hypertension, coronary artery disease, congestive heart failure, pacemaker placement back in June of this year, presents with achy joints and mild shortness of breath and increased bilateral leg swelling. He relates history that he was admitted to the hospital and [facility] the last few weeks if not longer. He is there for rehabilitation. Today, he started having achy joints, pain in his bilateral knees and shoulders. He may have an occasional cough. He also stated that he feels slightly short of breath. When he was hospitalized they had upped his Lasix to 80 mg and he continue this for few days while at the [facility], but states he is now back down to 40 mg daily. He states his legs are swollen, and he feels generally weak. [facility] Medical History Abnormal chest xray Acquired left ventricular hypertrophy Acute hypoxemic respiratory failure Acute midline thoracic back pain Adult failure to thrive Alcohol abuse Ambulates with cane Anemia Anxiety Anxiety and depression Arthritis Arthritis Asthma Atherosclerosis of coronary artery of [place] heart without angina pectoris Atrial fibrillation Back pain Benign essential HTN BiPAP (biphasic positive airway pressure) dependence Cardiology follow-up encounter Chest pain Chest pain Chronic hypoxemic respiratory failure Chronic pain of both knees Chronic wound of head Colon cancer screening Congestive heart failure Congestive heart failure (CHF) COPD (chronic obstructive pulmonary disease) Dark stools Debility Depression Depression Diabetes Dietary restriction Dizziness MEANS (dyspnea on exertion) DVT (deep venous thrombosis) Dyspnea on exertion Fall Fatigue Gastric ulcer GERD (gastroesophageal reflux disease) GI bleed Health care maintenance Heart failure with preserved ejection fraction Hepatitis History of diverticulitis History of DVT (deep vein thrombosis) History of echocardiogram History of edema History of GI bleed History of pulmonary embolism History of renal disease History of stress test History of ulceration Hypercalcemia Hyperlipidemia Hyperparathyroidism Hypertension Hypertriglyceridemia Hypotension Hypoxia Injury of head and neck Insomnia Intermittent chest pain Irregular heart beat Lives in long term Loss of hearing Morbid obesity with BMI of 40.0-44.9, adult Near syncope Non-smoker Obesity Olecranon bursitis FAVIAN (obstructive sleep apnea) Osteoarthritis Osteopenia Presence of permanent cardiac pacemaker Pressure ulcer Primary hyperparathyroidism Pulmonary embolism Pure hypercholesterolemia Renal insufficiency Sciatica Secondary pulmonary hypertension Seizures Shortness of breath Shortness of breath on exertion Sick sinus syndrome Thyroid disease Tinnitus of both ears Type 2 diabetes mellitus Uses wheelchair Vertigo Vitamin D deficiency Wears glasses Home Medications clopidogrel 75 mg tablet 75 mg PO DAILY BLOOD THINNER #90 tabs 10/03/22 [Rx Last Taken 07/28/23] ranolazine 500 mg tablet,extended release,12 hr 500 mg PO BID chest pain #180 tabs 12/20/22 [Rx Last Taken 07/28/23] cinacalcet 30 mg tablet 30 mg PO BID hypercalcemia #60 tabs 03/07/23 [Rx Last Taken 07/28/23] albuterol sulfate 90 mcg/actuation aerosol inhaler 2 puff inhalation Q6H PRN shortness of breath or wheezing 04/14/23 [History Last Taken 07/28/23] amlodipine 5 mg tablet 10 mg PO DAILY blood pressure 04/14/23 [History Last Taken 07/28/23] ferrous sulfate 325 mg (65 mg iron) tablet 325 mg PO DAILY supplement #90 tabs 05/19/23 [Rx Last Taken 07/28/23] paroxetine HCl 40 mg tablet 40 mg PO DAILY mood #30 tabs 05/19/23 [Rx Last Taken 07/28/23] pantoprazole 40 mg tablet,delayed release 40 mg PO DAILY GI #90 tabs 06/01/23 [Rx Last Taken Unknown] metoprolol succinate 50 mg tablet,extended release 24 hr 50 mg PO Q12H blood pressure #60 tabs 06/12/23 [Rx Last Taken 06/19/23] furosemide 40 mg tablet 40 mg PO BID water pill #30 tabs 07/31/23 [Rx Last Taken 07/28/23] hydralazine 25 mg tablet 25 mg PO TID #0 tabs 07/31/23 [Rx Last Taken Unknown] insulin glargine-yfgn 100 unit/mL (3 mL) subcutaneous pen 15 unit (0.15 mL) subcut BID #0 mL 07/31/23 [Rx Last Taken Unknown] losartan 25 mg tablet 25 mg PO DAILY #0 tabs 07/31/23 [Rx Last Taken Unknown] oxycodone 5 mg tablet 5 mg PO Q4H PRN PRN Pain Score 6-10 2 days #10 tabs 07/31/23 [Rx Last Taken Unknown] potassium chloride 20 mEq tablet,extended release(part/cryst) 20 meq PO BIDCM #0 tabs 07/31/23 [Rx Last Taken Unknown] sucralfate 1 gram tablet 1 g PO 1HR_ACHS #0 tabs 07/31/23 [Rx Last Taken Unknown] bisacodyl 10 mg rectal suppository 10 mg WI DAILY PRN constipation 08/08/23 [History Last Taken Unknown] insulin lispro 100 unit/mL subcutaneous solution (Humalog U-100 Insulin) 1 sliding scale dose subcut USEASDIRECTD 08/08/23 [History Last Taken Unknown] magnesium hydroxide 400 mg/5 mL oral suspension (Milk of Magnesia) 30 ml PO DAILY PRN constipation 08/08/23 [History Last Taken Unknown] mineral oil (Fleet Mineral Oil enema) 118 ml WI DAILY PRN constipation 08/08/23 [History Last Taken Unknown] fenofibrate micronized 200 mg capsule 200 mg PO DAILY 08/11/23 [History Last Taken Unknown] Allergy/AdvReac Type Severity Reaction Status Date / Time No Known Allergies Allergy Verified 08/08/23 13:02 Family History Mother Colon cancer Sister CAD (coronary artery disease) CABG x 5 Diabetes Myocardial infarction, Onset Age: 67 Father Crohns disease Surgical History History of appendectomy History of appendectomy 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) History of cardiac catheterization History of coronary artery stent placement (10/21/22) History of eye surgery History of hip replacement History of intestinal surgery History of knee surgery History of tonsillectomy and adenoidectomy Social History household members: none housing: apartment current occupational status: retired pets and animals: No other: 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 Smoking Status: Never smoker second hand exposure: Yes alcohol intake: former year quit: 2003 details: Sober since 2003. substance use type: former substance user Date of last use: 04/10/2004 and marijuana caffeine: Yes Type: carbonated beverages Number of servings: 2 and coffee Number of servings: 2 what type of physical activity do you participate in: none ROS ROS ED ROS Narrative Constitutional: No fever, no chills. HEENT: No sore throat. No neck pain. No loss of vision. No rhinorrhea. Cardiovascular: No chest pain. No palpitations. Worsening pedal edema. Respiratory: Occasional cough, mild shortness of breath. Abdominal: No abdominal pain. No nausea. No vomiting. Genitourinary: No dysuria. No hematuria. Musculoskeletal: No myalgias. Multiple myalgias, especially bilateral knees and bilateral shoulders Neurologic: No headaches. No dizziness. No lightheadedness. Skin: No rash. No change in color. Psychiatric: No depression. No anxiety. EXAM Physical Exam Narrative Exam Narrative: Afebrile. Vital signs noted. HEENT: Normocephalic. Atraumatic. PERRL, EOMI. Neck soft and supple. No point tenderness or step off. Cardiovascular: Regular rate and rhythm. No murmurs, rubs, or gallops appreciated. Respiratory: No tachypnea. Lungs clear to auscultation bilaterally. Gastrointestinal: Abdomen soft, nontender, with normoactive bowel sounds. No rebound or guarding. Neurological: Awake. Alert. Nonfocal, nonlateralizing. Skin: No rash. Normal color. No pallor. Musculoskeletal: Bilateral symmetric pedal edema. Full range of motion extremities. Const Vital Signs: 08/11/23 17:24 08/11/23 18:48 08/11/23 19:23 Temperature 99.1 F Temperature Source Oral Pulse Rate 80 79 Respiratory Rate 24 H 16 Respiratory Effort Short of Breath Respiratory Pattern Normal Blood Pressure 182/101 H 120/70 Blood Pressure Mean 128 86 Pulse Ox 94 96 Oxygen Delivery Method Room Air Room Air MDM MDM MDM Narrative Medical decision making narrative: Patient has slightly elevated temperature of 99 ?F. Concern would be for pneu monia causing his shortness of breath versus CHF exacerbation versus influenza given his arthralgias. For his generalized weakness, he may have a low potassium or be dehydrated as he takes Lasix. Comprehensive workup was pursued. I will hold off on bolus of IV fluids given his history of CHF. I reviewed his prior records and he had a history of sick sinus syndrome which was the problem placement for his pacemaker. He has had chronic lower extremity edema as well. EKG was obtained and interpreted by myself independently as atrial fibrillation with frequent ventricular paced complexes at [address] changes. No STEMI. I reviewed his laboratory work and he has slightly elevated white count of 11.2 which I think is nonspecific, hemoglobin stable at 9.5, platelet count normal at 305. His electrolyte panel is grossly unremarkable except for BUN of 55 and creatinine 2.18 he has history of chronic kidney disease. Sodium is normal at 136 and potassium 3.7. High-sensitivity troponin is 27, I do not feel that he is having ACS as a cause of his generalized weakness. BNP is elevated above 300 slightly, but this appears to be his baseline. Chest x-ray 1 view interpreted by myself independently shows no pneumonia or pneumothorax. I reviewed the radiology report which confirms my independent interpretation. He was administered morphine and ondansetron for his bilateral shoulder and bilateral knee pain. Regardless of if he has infected urine, I do not feel that he requires admission as he is already in a [place] [facility]. He will be treated with antibiotics if indicated. However, initial review of his urinalysis is negative for ketones, leukocyte esterase, nitrates. Disposition is discharged in stable condition. History & Record Review Discussion w/independent historian: Patient Additional record(s) reviewed:: Prior labs and Other (FDC paperwork) Lab Data Attestation: I reviewed the patient's lab results. Labs: Laboratory Results - last 24 hr 08/11/23 08/11/23 18:20 19:42 WBC 11.2 H RBC 3.68 L Hgb 9.5 L Hct 31.6 L MCV 85.9 MCH 25.8 L MCHC 30.1 L RDW Std Deviation 53.7 H RDW Coeff of Thao 17.1 H Plt Count 305 MPV 10.0 Immature Gran % (Auto) 0.800 Neut % (Auto) 81.6 H Lymph % (Auto) 2.6 L [place] % (Auto) 14.0 H Eos % (Auto) 0.6 Baso % (Auto) 0.4 Absolute Neuts (auto) 9.1 H Absolute Lymphs (auto) 0.29 L Nucleated RBC % 0 Differential Comment SEE COMMENTS Diff Path Review May foll Platelet Estimate ADEQUATE RBC Morphology NORM C+C Hypochromasia RARE Anisocytosis RARE Ovalocytes RARE Sodium 136 Potassium 3.7 Chloride 102 Carbon Dioxide 27.0 Anion Gap 7 BUN 55 H Creatinine 2.18 H Estim Creat Clear Calc 42.43 Est GFR (MDRD) Af Amer 39 L Est GFR (MDRD) Non-Af 32 L BUN/Creatinine Ratio 25.2 H Glucose 244 H Lactic Acid 1.5 Calcium 10.1 Total Bilirubin 0.70 AST 17 ALT 31 Alkaline Phosphatase 60 Troponin I High Sens 27 B-Natriuretic Peptide 305.5 H Total Protein 7.0 Albumin 3.3 Globulin 3.7 Albumin/Globulin Ratio 0.9 Urine Color Yellow Urine Clarity Clear Urine pH 6.0 Ur Specific [place] 1.015 Urine Protein 30 H Urine Glucose (UA) 100 H Urine Ketones Negative Urine Occult Blood Negative Urine Nitrite Negative Urine Bilirubin Negative Urine Urobilinogen Normal Ur Leukocyte Esterase Negative Radiography Diagnostic Testing: Clinical Impression(s) from Imaging Studies Chest X-Ray 08/11/23 18:08 IMPRESSION: No acute process Electronically Signed: Kev Ross MD at 19:04 EDT Reading Location ID and State: [facility] / [place] , Service support , Discharge Plan Triage Chief Complaint: Edema ED Provider: Darian Vargas Dx/Rx/DC Orders Clinical Impression: Lower extremity edema, Generalized weakness, Bilateral knee pain, Bilateral shoulder pain Instructions: ED Peripheral Edema, Bilateral, ED Pain, Acute, Uncertain Cause, ED Weakness (Uncertain Cause) Prescriptions: No Action cinacalcet 30 mg tablet 30 mg PO BID Qty: 60 8RF mineral oil [Fleet Mineral Oil] Enema 118 ml WI DAILY PRN (Reason: constipation) Rx Instructions: discard any unused portion magnesium hydroxide [Milk of Magnesia] 400 mg/5 mL suspension 30 ml PO DAILY PRN (Reason: constipation) bisacodyl 10 mg suppository 10 mg WI DAILY PRN (Reason: constipation) insulin lispro [Humalog U-100 Insulin] 100 unit/mL solution 1 sliding scale dose subcut USEASDIRECTD Rx Instructions: 200-250 5 units 251-300 8 units 301-350 12 units Use IM before meals and at bedtime for DM albuterol sulfate 90 mcg/actuation HFA aerosol inhaler 2 puff inhalation Q6H PRN (Reason: shortness of breath or wheezing) amlodipine 5 mg tablet 10 mg PO DAILY fenofibrate micronized 200 mg capsule 200 mg PO DAILY hydralazine 25 mg Tablet 25 mg PO TID Qty: 0 0RF losartan 25 mg Tablet 25 mg PO DAILY Qty: 0 0RF oxycodone 5 mg Tablet 5 mg PO Q4H PRN PRN (Reason: Pain Score 6-10) 2 Days Qty: 10 0RF sucralfate 1 gram Tablet 1 g PO 1HR_ACHS Qty: 0 0RF insulin glargine-yfgn 100 unit/mL (3 mL) Insulin Pen 15 unit subcut BID Qty: 0 0RF potassium chloride 20 mEq Tablet,Er Particles/Crystals 20 meq PO BIDCM Qty: 0 0RF furosemide 40 mg tablet 40 mg PO BID Qty: 30 1RF clopidogrel 75 mg tablet 75 mg PO DAILY Qty: 90 3RF ranolazine 500 mg tablet extended release 12 hr 500 mg PO BID Qty: 180 3RF ferrous sulfate 325 mg (65 mg iron) tablet 325 mg PO DAILY Qty: 90 1RF paroxetine HCl 40 mg tablet 40 mg PO DAILY Qty: 30 1RF pantoprazole 40 mg tablet,delayed release (DR/EC) 40 mg PO DAILY Qty: 90 1RF metoprolol succinate 50 mg tablet extended release 24 hr 50 mg PO Q12H Qty: 60 11RF Primary Care Provider: Mery Raymond Referrals: Mery Raymond MD [Primary Care Provider] - As soon as possible Disposition Disposition: Retirement Facility Discharge Location: [facility]
--- NOTE | 2023-08-11 18:08 | RAD_ITS ---
STUDY: X-RAY CHEST REASON FOR EXAM: Male, 67 years old. shortness of breath TECHNIQUE: Single AP portable view of the chest. COMPARISON: July 28, 2023 FINDINGS: Stable left chest cardiac device and leads. No demonstrated consolidation. The lungs are clear and expanded. There is no demonstrated pleural abnormality. Normal size heart. Normal mediastinum and sue. There is prominence of the pulmonary hilar arteries and peripheral pulmonary arteries, consistent with congestive heart failure (CHF). There is atherosclerotic tortuosity of the aortic arch and descending thoracic aorta. There are diffuse degenerative changes of the visualized thoracic spine. There is degenerative osteoarthritis of the bilateral shoulders. There is no demonstrated abnormality of the visualized soft tissue structures of the upper abdomen. RAD/Chest 1 View (Portable) IMPRESSION: No acute process Electronically Signed: Kev Ross MD at 19:04 EDT ,
[2023-08-11 18:35] LABS: Absolute Lymphocyte Count 0.29 X10^3/uL (0.83-4.51); Absolute Neutrophil Count 9.1 X10^3/uL (2.0-7.7); Basophil# 0.05 X10^3/uL; Basophil% 0.4 % (0-1); Eosinophil# 0.07 X10^3/uL; Eosinophils% 0.6 % (0-5); Hematocrit 31.6 % (40-54); Hemoglobin 9.5 g/dL (13.0-16.5); Lymphocyte # 0.29 X10^3/ul (0.83-4.51); Lymphocyte % 2.6 % (19-41); Mean Corp Hgb Conc 30.1 g/dL (32-36); Mean Corpuscular Hgb 25.8 pg (27.0-32.0); Mean Corpuscular Volume 85.9 fL (80-94); Monocyte# 1.56 X10^3/uL; NRBC Flagged by Analyzer 0 % (0-5); Neutrophil % 81.6 % (47-70); POSITIVE DIFFERENTIAL YES; Platelet Count 305 K/mm3 (150-450); RBC Distribution Width CV 17.1 % (11.6-14.6); RBC Distribution Width SD 53.7 fl (35.1-43.9); Red Blood Count 3.68 M/mm3 (4.6-6.2); White Blood Count 11.2 K/mm3 (4.4-11.0)
[2023-08-11 18:42] LABS: Differential Indicated SCAN CRITERIA MET
[2023-08-11 19:03] LABS: ALB/GLOB Ratio 0.9 RATIO (0.9-2.4); AST(SGOT) 17 U/L (15-37); Alanine Aminotransfer ALT/SGPT 31 U/L (16-61); Albumin, Serum 3.3 g/dL (3.2-5.0); Alkaline Phosphatase 60 U/L (45-117); Anion Gap 7 (5-15); BUN 55 mg/dL (7-18); BUN/Creat Ratio 25.2 RATIO (10-20); Calcium,Total 10.1 mg/dL (8.5-10.1); Chloride 102 mmol/L (98-107); Creatinine, Serum 2.18 mg/dL (0.70-1.30); Differential Comment SEE COMMENTS; EST Glomerular Filtration Rate 32 mL/min (>60); Est Glom Filt Rate - Afr Amer 39 mL/min (>60); Estimated Creatinine Clearance 42.43 ml/min; Globulin 3.7 g/dL (2.2-4.2); Glucose 244 mg/dL (74-106); Potassium 3.7 mmol/L (3.5-5.1); Sodium Level 136 mmol/L (136-145); Troponin-I HS 27 pg/mL (3.0-78.0)
[2023-08-11 19:04] LABS: Anisocytosis RARE; Hypochromasia RARE; Ovalocyte RARE; Platelet Estimate ADEQUATE (ADEQ); Red Cell Morphology NORM C+C NORMAL (NORM C&C)
[2023-08-11 19:18] LABS: BNP,B-Type NATRIURETIC PEPTIDE 305.5 pg/mL (0-100)
[2023-08-11 19:22] LABS: Lactic Acid 1.5 mmol/L (0.4-1.9)
[2023-08-11 19:23] VITALS: BP 120/70; PULSE 79; RESP 16; O2SAT 96
[2023-08-11 19:46] LABS: Bacteria 0 SEEN /hpf (None Seen); Mucous, Urine 0 SEEN /hpf (<or=2+); Red Blood Cells-Urine 0 SEEN /hpf (0-5); Squamous Epithelial Cells - UA 0 SEEN /hpf (0-5)
[2023-08-11 19:47] LABS: Color, Urine Yellow (Yellow); Glucose, Dipstick 100 mg/dl (Normal); Ketone-Dipstick Negative (Negative); Leukocyte Esterase-Dipstick Negative /ul (Negative); Nitrite-Dipstick Negative (Negative); Occult Blood-Urine Negative /ul (Negative); Protein-Dipstick 30 mg/dl (Negative); Specific Gravity, Urine 1.015 (1.002-1.030); Urine Bilirubin Dipstick Negative (Negative); Urine Clarity Clear (Clear); Urine Urobilinogen Normal (Normal)
[2023-08-11] MEDS: Ondansetron 4 MG/2 ML Vial IV (19:47)
[2023-08-11] MEDS: Morphine 4 MG/ML Syringe IV (19:47)
--- NOTE | 2023-08-11 20:16 | ED.RN ---
Called [facility] [place] for ADL status. Per nurse Becka she reports that Shade is unable to ambulate without a walker, and majority of the time uses a wheelchair instead of a walker. She reports today he was unable to transfer without two person extensive assist, and was unable to walk at all and needed to use his wheelchair all day. Shade does not have his walker or wheelchair with him currently at the hospital. Shade also has a medical diagnosis of ambulatory dysfunction.
[2023-08-11 20:21] LABS: White Blood Cells 0-5 SEEN /hpf (0-5)
[2023-08-11 20:37] VITALS: BP 131/64; PULSE 75; RESP 20; TEMP 36.7; O2SAT 95
--- NOTE | 2023-08-11 20:47 | ED.RN ---
attempt to call the [facility] report and unable to get anyone to take it.
[2023-08-14 10:15] LABS: Pathologist Review Reviewed
== END 2023-08-11 21:19 | disposition skilled nursing facility (03) ==
PROVIDERS: Emergency Provider Emergency Medicine; PCP Internal Medicine; Visit Provider Emergency Medicine
DX: R60.0 Localized edema (principal); I13.0 Hypertensive heart and chronic kidney disease with heart failure and stage 1 through stage 4 chronic kidney disease, or unspecified chronic kidney disease; I50.9 Heart failure, unspecified; J44.9 Chronic obstructive pulmonary disease, unspecified; I48.91 Unspecified atrial fibrillation; E11.22 Type 2 diabetes mellitus with diabetic chronic kidney disease; Z79.4 Long term (current) use of insulin; I25.10 Atherosclerotic heart disease of native coronary artery without angina pectoris; M25.511 Pain in right shoulder; M25.512 Pain in left shoulder; Z95.0 Presence of cardiac pacemaker; M25.562 Pain in left knee; M25.561 Pain in right knee; E78.00 Pure hypercholesterolemia, unspecified; Z79.899 Other long term (current) drug therapy; N18.9 Chronic kidney disease, unspecified; R06.02 Shortness of breath
CPT/HCPCS: 71045; 80053; 81001; 83605; 83880; 84484; 85025; 87631; 93005; 96374; 96375; 99284; A4216; J2405

== ENCOUNTER 2023-09-10 17:31 | Observation (INO) | payer MEDICARE, SELFPAY ==
[2023-03-13 16:01] VITALS: BMI 43.3
[2023-09-10 17:32] VITALS: BP 142/83; PULSE 88; TEMP 36.1; O2SAT 93; BMI 39.0
--- NOTE | 2023-09-10 17:56 | EKG12_ITS ---
Test Reason : Blood Pressure : / mmHG Vent. Rate : 091 BPM Atrial Rate : 000 BPM P-R Int : 000 ms QRS Dur : 102 ms QT Int : 350 ms P-R-T Axes : 000 011 226 degrees QTc Int : 430 ms Atrial fibrillation with premature ventricular or aberrantly conducted complexes CAN NOT RULE OUT Septal infarct , age undetermined NS ST & T wave abnormality, consider inferolateral ischemia Abnormal ECG Confirmed by Adrian Schwartz ([id number]), copy editor INO BUITRAGO ([id number]) on 09/11/2023 9:25:52 AM Referred By: Confirmed By:Adrian Schwartz
--- NOTE | 2023-09-10 17:56 | CT_ITS ---
STUDY: CT Abdomen And Pelvis W/ Contrast Injection 09/10/2023 8:13 PM REASON FOR EXAM: Male, 67 years old. Abdominal pain abdominal pain Individualized dose optimization techniques were used for this CT. COMPARISON: None. TECHNIQUE: CT Abdomen And Pelvis W/ Contrast Injection IV 100mL [id number] FINDINGS: There are atherosclerotic calcifications of visualized coronary arteries. Small right pleural effusion. There is hepatomegaly with diffuse hepatic enlargement. Normal gallbladder and extrahepatic biliary system. Normal spleen. Normal pancreas. Normal bilateral adrenal glands. There are hypodensities in the right kidney. These are consistent for cysts. No follow up required. There are hypodensities in the left kidney. These are consistent for cysts. No follow up required. Nonobstructive 2 mm bilateral renal stones. Normal visualized stomach. There is a paralytic ileus of the small intestine with mild gaseous distention. There are multiple colonic diverticula consistent with diverticulosis. There is non-visualization of the appendix. There are calcifications of the abdominal aorta. This is consistent for atherosclerotic disease. There is NO abdominal aortic aneurysm. Vascular workup can be obtained based on clinical correlation. Normal inferior vena cava. Subcentimeter mesenteric lymph nodes. Normal urinary bladder. Total bilateral hip arthroplasties. There is an umbilical hernia containing fat. There are diffuse degenerative changes of the visualized lumbar spine. CT/Abdomen/Pelvis W IV Cont ONLY IMPRESSION: (NOT LISTED IN ORDER OF SIGNIFICANCE) Hepatomegaly. Small right pleural effusion. Small bowel ileus. Other findings as above. Electronically Signed: Jaret Hicks MD at 20:16 EDT ,
--- NOTE | 2023-09-10 17:58 | EX.ED.DYSGE1 ---
HPI <MAVERICK Tobar - Last Filed: 09/10/23 20:58> History of Present Illness Chief Complaint: Abd Pain Narrative Narrative: Patient is a 67-year-old male with history of ACS, history of WA, diabetes, obesity, who lives in assisted living presenting to the emergency department with complaints of upper abdominal pain after eating a cheeseburger. 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 Gonzales. Patient states today right after eating he started having burning in his chest that went to his abdomen, and is not letting up. Patient denies any diaphoresis, denies any vomiting however has nausea. He is still having bowel movements. He states he does have history of a colon surgery as well as appendicitis. Patient states he still has his gallbladder. PFS <MAVERICK Tobar - Last Filed: 09/10/23 20:58> [facility] Medical History Abnormal chest xray Acquired left ventricular hypertrophy Acute hypoxemic respiratory failure Acute midline thoracic back pain Adult failure to thrive Alcohol abuse Ambulates with cane Anemia Anxiety Anxiety and depression Arthritis Arthritis Asthma Atherosclerosis of coronary artery of [place] heart without angina pectoris Atrial fibrillation Back pain Benign essential HTN BiPAP (biphasic positive airway pressure) dependence Cardiology follow-up encounter Chest pain Chest pain Chronic hypoxemic respiratory failure Chronic pain of both knees Chronic wound of head Colon cancer screening Congestive heart failure Congestive heart failure (CHF) COPD (chronic obstructive pulmonary disease) Dark stools Debility Depression Depression Diabetes Dietary restriction Dizziness MEANS (dyspnea on exertion) DVT (deep venous thrombosis) Dyspnea on exertion Fall Fatigue Gastric ulcer GERD (gastroesophageal reflux disease) GI bleed Health care maintenance Heart failure with preserved ejection fraction Hepatitis History of diverticulitis History of DVT (deep vein thrombosis) History of echocardiogram History of edema History of GI bleed History of pulmonary embolism History of renal disease History of stress test History of ulceration Hypercalcemia Hyperlipidemia Hyperparathyroidism Hypertension Hypertriglyceridemia Hypotension Hypoxia Injury of head and neck Insomnia Intermittent chest pain Irregular heart beat Lives in long term Loss of hearing Morbid obesity with BMI of 40.0-44.9, adult Near syncope Non-smoker Obesity Olecranon bursitis FAVIAN (obstructive sleep apnea) Osteoarthritis Osteopenia Presence of permanent cardiac pacemaker Pressure ulcer Primary hyperparathyroidism Pulmonary embolism Pure hypercholesterolemia Renal insufficiency Sciatica Secondary pulmonary hypertension Seizures Shortness of breath Shortness of breath on exertion Sick sinus syndrome Thyroid disease Tinnitus of both ears Type 2 diabetes mellitus Uses wheelchair Vertigo Vitamin D deficiency Wears glasses Home Medications ?Medication ?Instructions ?Recorded ?Last Taken ?Type clopidogrel 75 mg tablet 75 mg PO DAILY BLOOD THINNER #90 10/03/22 07/28/23 Rx tabs ranolazine 500 mg tablet,extended 500 mg PO BID chest pain #180 tabs 12/20/22 07/28/23 Rx release,12 hr cinacalcet 30 mg tablet 30 mg PO BID hypercalcemia #60 tabs 03/07/23 07/28/23 Rx albuterol sulfate 90 mcg/actuation 2 puff inhalation Q6H PRN 04/14/23 07/28/23 History aerosol inhaler shortness of breath or wheezing amlodipine 5 mg tablet 10 mg PO DAILY blood pressure 04/14/23 07/28/23 History ferrous sulfate 325 mg (65 mg 325 mg PO DAILY supplement #90 tabs 05/19/23 07/28/23 Rx iron) tablet paroxetine HCl 40 mg tablet 40 mg PO DAILY mood #30 tabs 05/19/23 07/28/23 Rx pantoprazole 40 mg tablet,delayed 40 mg PO DAILY GI #90 tabs 06/01/23 Unknown Rx release metoprolol succinate 50 mg 50 mg PO Q12H blood pressure #60 06/12/23 06/19/23 Rx tablet,extended release 24 hr tabs furosemide 40 mg tablet 40 mg PO BID water pill #30 tabs 07/31/23 07/28/23 Rx hydralazine 25 mg tablet 25 mg PO TID #0 tabs 07/31/23 Unknown Rx insulin glargine-yfgn 100 unit/mL 15 unit (0.15 mL) subcut BID #0 mL 07/31/23 Unknown Rx (3 mL) subcutaneous pen losartan 25 mg tablet 25 mg PO DAILY #0 tabs 07/31/23 Unknown Rx oxycodone 5 mg tablet 5 mg PO Q4H PRN PRN Pain Score 07/31/23 Unknown Rx 6-10 2 days #10 tabs potassium chloride 20 mEq 20 meq PO BIDCM #0 tabs 07/31/23 Unknown Rx tablet,extended release(part/cryst) sucralfate 1 gram tablet 1 g PO 1HR_ACHS #0 tabs 07/31/23 Unknown Rx bisacodyl 10 mg rectal suppository 10 mg CO DAILY PRN constipation 08/08/23 Unknown History insulin lispro 100 unit/mL 1 sliding scale dose subcut 08/08/23 Unknown History subcutaneous solution (Humalog USEASDIRECTD U-100 Insulin) magnesium hydroxide 400 mg/5 mL 30 ml PO DAILY PRN constipation 08/08/23 Unknown History oral suspension (Milk of Magnesia) mineral oil (Fleet Mineral Oil 118 ml CO DAILY PRN constipation 08/08/23 Unknown History enema) fenofibrate micronized 200 mg 145 mg PO DAILY 08/11/23 Unknown History capsule semaglutide 1 mg/dose (4 mg/3 mL) 1 mg subcut QWEEK 09/10/23 Unknown History subcutaneous pen injector (Ozempic) Allergy/AdvReac Type Severity Reaction Status Date / Time No Known Allergies Allergy Verified 09/10/23 17:36 Family History Mother Colon cancer Sister CAD (coronary artery disease) CABG x 5 Diabetes Myocardial infarction, Onset Age: 67 Father Crohns disease Surgical History History of appendectomy History of appendectomy 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) History of cardiac catheterization History of coronary artery stent placement (10/21/22) History of eye surgery History of hip replacement History of intestinal surgery History of knee surgery History of tonsillectomy and adenoidectomy Social History household members: none housing: apartment current occupational status: retired pets and animals: No other: Hx working in [employer] and [employer]. Smoking Status: Never smoker second hand exposure: Yes alcohol intake: former year quit: 2003 details: Sober since 2003. substance use type: former substance user Date of last use: 04/10/2004 and marijuana caffeine: Yes Type: carbonated beverages Number of servings: 2 and coffee Number of servings: 2 what type of physical activity do you participate in: none ROS <MAVERICK Tobar - Last Filed: 09/10/23 20:58> ROS ED ROS Narrative Constitutional: Negative for fever, chills, weight loss, weakness Eyes: Negative for vision loss, vision change, double vision ENT: Negative for any sore throat, ear pain, congestion Cardiovascular: Negative for any chest pain, tightness, palpitations Respiratory: Negative for any cough, sputum production, hemoptysis, dyspnea, dyspnea on exertion, orthopnea Gastrointestinal: Negative for any vomiting, diarrhea, constipation, blood in stool, blood in vomi. Positive for abdominal pain, nausea t : Negative for any urinary frequency, dysuria, retention, blood in urine Muscle skeletal: Negative for any neck pain, back pain Neurological: Negative for any headache, syncope, dizziness Skin: Negative for any rashes, itching, abrasions, lacerations Psychiatric: Negative for any depression, anxiety, stress, suicidal ideation, homicidal ideation Hematologic: Negative for any excessive bruising, easy bleeding EXAM <MAVERICK Tobar - Last Filed: 09/10/23 20:58> Physical Exam Narrative Exam Narrative: Vital signs reviewed. HEET: Head normocephalic atraumatic, TMs clear bilaterally. Posterior pharynx is clear, moist mucous membranes. Nares clear bilaterally. Neck: Supple with no lymphadenopathy or tenderness. No signs of meningismus. Cardiac: Regular rate and rhythm no murmurs gallops or rubs, equal peripheral pulses bilaterally. Respiratory: Lungs clear to auscultation bilaterally. No chest tenderness. Abdomen: Soft, nondistended. No abdominal bruit or pulsatile masses. No hepatosplenomegaly. Patient does have pain to both the right upper and left upper abdomen. When I pressed to his left lower abdomen, he also states he felt pressure there. Active bowel sounds throughout. There is no peritoneal signs. Extremities: No peripheral edema, no signs of gross trauma or deformity. Active full range of motion of all extremities. Neuro: Cranial nerves II through XII intact, no focal neurological deficits. Skin: Clean dry and intact with no rash, purpura, petechiae, vesicles or pustules. Backs/flank: No CVA tenderness, no midline spinal tenderness, no deformity. Psych: Normal mood and affect. No SI, HI or acute psychosis. Const Vital Signs: 09/10/23 17:32 09/10/23 19:31 09/10/23 21:01 Temperature 96.9 F L 97.6 F L Temperature Source Temporal Pulse Rate 88 86 Respiratory Rate 18 18 Blood Pressure 142/83 H 163/101 H 130/80 H Blood Pressure Mean 102 121 96 Pulse Ox 93 96 99 Oxygen Delivery Method Room Air Room Air <Darian Vargas MD - Last Filed: 09/10/23 21:26> Physical Exam Const Vital Signs: 09/10/23 17:32 09/10/23 19:31 09/10/23 21:01 Temperature 96.9 F L 97.6 F L Temperature Source Temporal Pulse Rate 88 86 Respiratory Rate 18 18 Blood Pressure 142/83 H 163/101 H 130/80 H Blood Pressure Mean 102 121 96 Pulse Ox 93 96 99 Oxygen Delivery Method Room Air Room Air MDM <MAVERICK Tobar - Last Filed: 09/10/23 20:58> [facility] Lab Data Labs: Laboratory Results - last 24 hr 09/10/23 09/10/23 18:10 18:20 WBC 8.4 RBC 3.89 L Hgb 10.2 L Hct 33.3 L MCV 85.6 MCH 26.2 L MCHC 30.6 L RDW Std Deviation 50.4 H RDW Coeff of Thao 16.2 H Plt Count 348 MPV 8.9 Immature Gran % (Auto) 2.000 H Neut % (Auto) 82.0 H Lymph % (Auto) 4.9 L Coffey % (Auto) 9.4 Eos % (Auto) 1.3 Baso % (Auto) 0.4 Absolute Neuts (auto) 6.9 Absolute Lymphs (auto) 0.41 L Nucleated RBC % 0 Sodium 135 L Potassium 4.3 Chloride 101 Carbon Dioxide 26.0 Anion Gap 8 BUN 58 H Creatinine 2.13 H Estim Creat Clear Calc 44.95 Est GFR (MDRD) Af Amer 40 L Est GFR (MDRD) Non-Af 33 L BUN/Creatinine Ratio 27.2 H Glucose 363 H Calcium 10.2 H Total Bilirubin 0.50 AST 20 ALT 22 Alkaline Phosphatase 75 Troponin I High Sens 25 Total Protein 7.5 Albumin 3.2 Globulin 4.3 H Albumin/Globulin Ratio 0.7 L Lipase 106 H Urine Color Yellow Urine Clarity Sl. Cloudy Urine pH 7.0 Ur Specific Crandall 1.010 Urine Protein 15 H Urine Glucose (UA) 1000 H Urine Ketones Negative Urine Occult Blood Negative Urine Nitrite Negative Urine Bilirubin Negative Urine Urobilinogen Normal Ur Leukocyte Esterase Negative Urine RBC 0 SEEN Urine WBC 0 SEEN Ur Squamous Epith Cells 0-5 SEEN Urine Bacteria 0 SEEN Urine Mucus 0 SEEN Radiography Diagnostic Testing: Clinical Impression(s) from Imaging Studies Abdomen/Pelvis CT 09/10/23 17:56 IMPRESSION: (NOT LISTED IN ORDER OF SIGNIFICANCE) Hepatomegaly. Small right pleural effusion. Small bowel ileus. Other findings as above. Electronically Signed: Jaret Hicks MD at 20:16 EDT Reading Location ID and State: [facility] / [place] , Service support , EKG A-fib, rate 91 bpm: Attestation: I personally reviewed and interpreted this EKG as follows: Comments: Irregular rhythm, rate 91 bpm, no evidence of ST elevation, no acute infarct noted. Treatment and Re-Evaluation :: Differential diagnosis includes however is not limited to: Acute cholecystitis, cholelithiasis, choledocholithiasis, pancreatitis, bowel obstruction, diverticulitis, ACS or WA Patient is in no obvious respiratory distress vital signs are stable, patient appears nontoxic. Presenting to the emergency department for abdominal pain, abdominal burning as well as nausea. Secondary to the patient having burning in his chest,, being a cardiac patient, patient will receive EKG as well as a troponin. Patient will also receive abdominal lab values such as CBC CMP lipase. CT scan of the abdomen pelvis will be ordered. IV morphine and Zofran be ordered for the patient's pain as well as a GI cocktail. All radiologic examinations were read, reviewed by the emergency department attending. From these reads, a plan of care will be put in place. Patient will be reevaluated On reevaluation, patient had slight improvement. Laboratory values showed a chronic anemia, no leukocytosis. Chemistries showed a stable renal insufficiency at a creatinine 2.13, patient's blood glucose 363, lipase was mildly elevated at 106. Patient did receive a CT scan of the abdomen pelvis, this showed right pleural effusion, as well as small bowel ileus, secondary this finding we did reach out to Dr. Gonzales. He recommended bowel rest, and to be admitted to the hospital under observation. I spoke with hospitalist who is in agreement. Patient remained stable. <Darian Vargas MD - Last Filed: 09/10/23 21:26> [facility] Narrative Medical decision making narrative: Dr. Vargas: I have personally performed a face to face assessment of the patient and have reviewed the CHU Note. I performed a substantive portion of the visit including all aspects of the following. My hernandez findings include: History is abdominal pain and bloating after eating cheeseburger today at lunch. Excessive belching. Exam is afebrile. Vital signs noted. Abdomen soft with mild distention. Decreased bowel sounds. Medical Decision Making: Check labs. In review of laboratory work he has slightly elevated lipase of 106. Check CT. I reviewed the CT report which comments on small bowel ileus. Patient discussed with Dr. Gonzales. Patient will be assigned observation after discussion with Dr. Purvi Jensen given his small bowel ileus and elevated lipase. He is in stable condition. Other additions or changes: [None] History & Record Review Discussion w/independent historian: Patient Lab Data Attestation: I reviewed the patient's lab results. Labs: Laboratory Results - last 24 hr 09/10/23 09/10/23 18:10 18:20 WBC 8.4 RBC 3.89 L Hgb 10.2 L Hct 33.3 L MCV 85.6 MCH 26.2 L MCHC 30.6 L RDW Std Deviation 50.4 H RDW Coeff of Thao 16.2 H Plt Count 348 MPV 8.9 Immature Gran % (Auto) 2.000 H Neut % (Auto) 82.0 H Lymph % (Auto) 4.9 L Coffey % (Auto) 9.4 Eos % (Auto) 1.3 Baso % (Auto) 0.4 Absolute Neuts (auto) 6.9 Absolute Lymphs (auto) 0.41 L Nucleated RBC % 0 Sodium 135 L Potassium 4.3 Chloride 101 Carbon Dioxide 26.0 Anion Gap 8 BUN 58 H Creatinine 2.13 H Estim Creat Clear Calc 44.95 Est GFR (MDRD) Af Amer 40 L Est GFR (MDRD) Non-Af 33 L BUN/Creatinine Ratio 27.2 H Glucose 363 H Calcium 10.2 H Total Bilirubin 0.50 AST 20 ALT 22 Alkaline Phosphatase 75 Troponin I High Sens 25 Total Protein 7.5 Albumin 3.2 Globulin 4.3 H Albumin/Globulin Ratio 0.7 L Lipase 106 H Urine Color Yellow Urine Clarity Sl. Cloudy Urine pH 7.0 Ur Specific Cr[place]all 1.010 Urine Protein 15 H Urine Glucose (UA) 1000 H Urine Ketones Negative Urine Occult Blood Negative Urine Nitrite Negative Urine Bilirubin Negative Urine Urobilinogen Normal Ur Leukocyte Esterase Negative Urine RBC 0 SEEN Urine WBC 0 SEEN Ur Squamous Epith Cells 0-5 SEEN Urine Bacteria 0 SEEN Urine Mucus 0 SEEN Radiography Diagnostic Testing: Clinical Impression(s) from Imaging Studies Abdomen/Pelvis CT 09/10/23 17:56 IMPRESSION: (NOT LISTED IN ORDER OF SIGNIFICANCE) Hepatomegaly. Small right pleural effusion. Small bowel ileus. Other findings as above. Electronically Signed: Jaret Hicks MD at 20:16 EDT Reading Location ID and State: [facility] / [place] , Service support , Management Discussion w/another healthcare provider: Hospitalist (Dr. Jensen) and Soldering Inspector (Dr. Gonzales) Discharge Plan Dx/Rx/DC Orders Clinical Impression: Abdominal pain, Paralytic ileus of small intestine Disposition Disposition: Acute Care Hospital [facility]
[2023-09-10] MEDS: Mag Hydrox/Al Hydrox/Simeth 30 ML UDC PO (18:11)
[2023-09-10] MEDS: Morphine 4 MG/ML Syringe IV (18:11)
[2023-09-10] MEDS: Ondansetron 4 MG/2 ML Vial IV (18:11)
[2023-09-10 18:30] LABS: Bacteria 0 SEEN /hpf (None Seen); Mucous, Urine 0 SEEN /hpf (<or=2+); Red Blood Cells-Urine 0 SEEN /hpf (0-5); White Blood Cells 0 SEEN /hpf (0-5)
[2023-09-10 18:31] LABS: Absolute Lymphocyte Count 0.41 X10^3/uL (0.83-4.51); Absolute Neutrophil Count 6.9 X10^3/uL (2.0-7.7); Basophil# 0.03 X10^3/uL; Basophil% 0.4 % (0-1); Eosinophil# 0.11 X10^3/uL; Eosinophils% 1.3 % (0-5); Hematocrit 33.3 % (40-54); Hemoglobin 10.2 g/dL (13.0-16.5); Lymphocyte # 0.41 X10^3/ul (0.83-4.51); Lymphocyte % 4.9 % (19-41); Mean Corp Hgb Conc 30.6 g/dL (32-36); Mean Corpuscular Hgb 26.2 pg (27.0-32.0); Mean Corpuscular Volume 85.6 fL (80-94); Mean Platelet Vol. 8.9 fl (6.2-12.0); Monocyte# 0.79 X10^3/uL; Monocyte% 9.4 % (0-10); NRBC Flagged by Analyzer 0 % (0-5); Neutrophil # 6.86 X10^3/uL (2.7-7.7); POSITIVE DIFFERENTIAL YES; Platelet Count 348 K/mm3 (150-450); RBC Distribution Width CV 16.2 % (11.6-14.6); RBC Distribution Width SD 50.4 fl (35.1-43.9); Red Blood Count 3.89 M/mm3 (4.6-6.2); White Blood Count 8.4 K/mm3 (4.4-11.0)
[2023-09-10 18:33] LABS: Color, Urine Yellow (Yellow); Glucose, Dipstick 1000 mg/dl (Normal); Ketone-Dipstick Negative (Negative); Leukocyte Esterase-Dipstick Negative /ul (Negative); Nitrite-Dipstick Negative (Negative); Occult Blood-Urine Negative /ul (Negative); Protein-Dipstick 15 mg/dl (Negative); Urine Bilirubin Dipstick Negative (Negative); Urine Clarity Sl. Cloudy (Clear); Urine Urobilinogen Normal (Normal)
[2023-09-10 18:40] LABS: Squamous Epithelial Cells - UA 0-5 SEEN /hpf (0-5)
[2023-09-10 18:54] LABS: ALB/GLOB Ratio 0.7 RATIO (0.9-2.4); AST(SGOT) 20 U/L (15-37); Alanine Aminotransfer ALT/SGPT 22 U/L (16-61); Albumin, Serum 3.2 g/dL (3.2-5.0); Alkaline Phosphatase 75 U/L (45-117); Anion Gap 8 (5-15); BUN 58 mg/dL (7-18); BUN/Creat Ratio 27.2 RATIO (10-20); Calcium,Total 10.2 mg/dL (8.5-10.1); Chloride 101 mmol/L (98-107); Creatinine, Serum 2.13 mg/dL (0.70-1.30); EST Glomerular Filtration Rate 33 mL/min (>60); Est Glom Filt Rate - Afr Amer 40 mL/min (>60); Estimated Creatinine Clearance 44.95 ml/min; Globulin 4.3 g/dL (2.2-4.2); Glucose 363 mg/dL (74-106); Lipase 106 U/L (13-75); Potassium 4.3 mmol/L (3.5-5.1); Protein, Total 7.5 g/dL (6.4-8.2); Sodium Level 135 mmol/L (136-145); Troponin-I HS 25 pg/mL (3.0-78.0)
[2023-09-10 19:31] VITALS: BP 163/101; RESP 18; O2SAT 96
--- NOTE | 2023-09-10 20:49 | PCM.HP.STD ---
HPI - General General Date of Admission: 09/10/23 Date of Service: 09/10/23 Chief Complaint: Abdominal discomfort, burning sensation. HPI Narrative The patient is a 67 y/o M w/ PMHx: Hx SSS s/p pacemaker status, Hyperparathyroidism with hypercalcemia, CKD stage III unclear subtype, Chronic normocytic anemia/iron deficiency anemia, Anxiety and Depression, CAD s/p PCI, Asthma, Hx VTE (DVT, PE), HTN, HLD, FAVIAN, Seizure disorder, Diabetes mellitus type II, PAF, HFpEF who presents to the [facility] ED on 09/10/2023 with onset following dinner earlier in the evening which consisted of a cheeseburger epigastric and right upper quadrant discomfort and burning light sensation with belching and sensation of distention not improving with nausea without emesis prompting eventual ED evaluation. Patient in the ED notes he feels somewhat improved after ED interventions but still has tenderness to palpation on exam more so in the right upper quadrant. He is currently rating his discomfort 2-3 out of 10 in severity but more so just with palpation. Workup in the ED included T96.9, heart rate 88, BP 142/83, respiratory rate 18, 93 to 96% on room air, CBC with WC 8.4, human 10.2, MCV 85.6, platelet 348 with increased immature granulocytes and lymphopenia, CMP with sodium 135, BUN/creatinine 58/2.13, GFR 33, glucose 363, calcium 10.2, hepatic profile not marked appearing, lipase 106, urinalysis with urine protein 15, glucose thousand otherwise unremarkable, CT abdomen and pelvis with hepatomegaly, small right pleural effusion, evidence of small bowel ileus of the small intestine with mild gaseous distention, multiple colonic diverticula consistent with diverticulosis, nonvisualization of the appendix. In the ED patient ministered Zofran 4 mg IV x 1, morphine 4 mg IV x 1, GI cocktail. ED did discuss case with gastroenterology who recommended admission and to maintain patient on bowel rest given concern for ileus. ON LICENSE OF [facility] Medical History Obesity Acute hypoxemic respiratory failure Lives in shelter Loss of hearing Tinnitus of both ears Wears glasses Anxiety Pressure ulcer Thyroid disease Uses wheelchair Ambulates with cane Arthritis History of renal disease Hepatitis Pulmonary embolism Back pain Injury of head and neck Hypotension Dietary restriction History of ulceration History of GI bleed History of diverticulitis Non-smoker COPD (chronic obstructive pulmonary disease) Shortness of breath on exertion History of edema History of echocardiogram History of stress test Cardiology follow-up encounter Chest pain Presence of permanent cardiac pacemaker Sick sinus syndrome Alcohol abuse Depression GERD (gastroesophageal reflux disease) BiPAP (biphasic positive airway pressure) dependence Irregular heart beat Congestive heart failure (CHF) Hypertension DVT (deep venous thrombosis) Fall Intermittent chest pain Gastric ulcer GI bleed Heart failure with preserved ejection fraction Atrial fibrillation Olecranon bursitis Debility Dizziness Anxiety and depression Vertigo Shortness of breath Diabetes Asthma Anemia Dark stools Benign essential HTN MEANS (dyspnea on exertion) Osteopenia Primary hyperparathyroidism Chest pain Hyperparathyroidism Seizures Adult failure to thrive Type 2 diabetes mellitus Chronic pain of both knees Vitamin D deficiency Renal insufficiency Fatigue Arthritis Colon cancer screening Health care maintenance Acute midline thoracic back pain Hyperlipidemia Hypercalcemia Secondary pulmonary hypertension Depression Congestive heart failure Chronic wound of head Sciatica Insomnia Pure hypercholesterolemia Atherosclerosis of coronary artery of [place] heart without angina pectoris Chronic hypoxemic respiratory failure FAVIAN (obstructive sleep apnea) Dyspnea on exertion History of pulmonary embolism Acquired left ventricular hypertrophy Abnormal chest xray Near syncope Hypoxia Hypertriglyceridemia Morbid obesity with BMI of 40.0-44.9, adult Osteoarthritis History of DVT (deep vein thrombosis) Home Medications ?Medication ?Instructions ?Recorded ?Last Taken ?Type clopidogrel 75 mg tablet 75 mg PO DAILY BLOOD THINNER #90 10/03/22 07/28/23 Rx tabs ranolazine 500 mg tablet,extended 500 mg PO BID chest pain #180 tabs 12/20/22 07/28/23 Rx release,12 hr cinacalcet 30 mg tablet 30 mg PO BID hypercalcemia #60 tabs 03/07/23 07/28/23 Rx albuterol sulfate 90 mcg/actuation 2 puff inhalation Q6H PRN 04/14/23 07/28/23 History aerosol inhaler shortness of breath or wheezing amlodipine 5 mg tablet 10 mg PO DAILY blood pressure 04/14/23 07/28/23 History ferrous sulfate 325 mg (65 mg 325 mg PO DAILY supplement #90 tabs 05/19/23 07/28/23 Rx iron) tablet paroxetine HCl 40 mg tablet 40 mg PO DAILY mood #30 tabs 05/19/23 07/28/23 Rx pantoprazole 40 mg tablet,delayed 40 mg PO DAILY GI #90 tabs 06/01/23 Unknown Rx release metoprolol succinate 50 mg 50 mg PO Q12H blood pressure #60 06/12/23 06/19/23 Rx tablet,extended release 24 hr tabs furosemide 40 mg tablet 40 mg PO BID water pill #30 tabs 07/31/23 07/28/23 Rx hydralazine 25 mg tablet 25 mg PO TID #0 tabs 07/31/23 Unknown Rx insulin glargine-yfgn 100 unit/mL 15 unit (0.15 mL) subcut BID #0 mL 07/31/23 Unknown Rx (3 mL) subcutaneous pen losartan 25 mg tablet 25 mg PO DAILY #0 tabs 07/31/23 Unknown Rx oxycodone 5 mg tablet 5 mg PO Q4H PRN PRN Pain Score 07/31/23 Unknown Rx 6-10 2 days #10 tabs potassium chloride 20 mEq 20 meq PO BIDCM #0 tabs 07/31/23 Unknown Rx tablet,extended release(part/cryst) sucralfate 1 gram tablet 1 g PO 1HR_ACHS #0 tabs 07/31/23 Unknown Rx bisacodyl 10 mg rectal suppository 10 mg GA DAILY PRN constipation 08/08/23 Unknown History insulin lispro 100 unit/mL 1 sliding scale dose subcut 08/08/23 Unknown History subcutaneous solution (Humalog USEASDIRECTD U-100 Insulin) magnesium hydroxide 400 mg/5 mL 30 ml PO DAILY PRN constipation 08/08/23 Unknown History oral suspension (Milk of Magnesia) mineral oil (Fleet Mineral Oil 118 ml GA DAILY PRN constipation 08/08/23 Unknown History enema) fenofibrate micronized 200 mg 145 mg PO DAILY 08/11/23 Unknown History capsule semaglutide 1 mg/dose (4 mg/3 mL) 1 mg subcut QWEEK 09/10/23 Unknown History subcutaneous pen injector (Ozempic) Allergy/AdvReac Type Severity Reaction Status Date / Time No Known Allergies Allergy Verified 09/10/23 17:36 Family History Mother Colon cancer Sister CAD (coronary artery disease) CABG x 5 Diabetes Myocardial infarction, Onset Age: 67 Father Crohns disease Surgical History History of cardiac catheterization History of appendectomy History of eye surgery History of intestinal surgery History of appendectomy History of tonsillectomy and adenoidectomy History of knee surgery History of hip replacement 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) History of coronary artery stent placement (10/21/22) Social History household members: none housing: apartment current occupational status: retired pets and animals: No other: Hx working in [email or web address] and [employer]. Smoking Status: Never smoker second hand exposure: Yes alcohol intake: former year quit: 2003 details: Sober since 2003. substance use type: former substance user Date of last use: 04/10/2004 and marijuana caffeine: Yes Type: carbonated beverages Number of servings: 2 and coffee Number of servings: 2 what type of physical activity do you participate in: none ROS ROS Narrative Admission Review of Systems: CONSTITUTIONAL: No weight loss, fever, chills, + weakness or fatigue. HEENT: Eyes: No visual loss, blurred vision, double vision or yellow sclerae. Ears, Nose, Throat: No hearing loss, sneezing, runny nose or sore throat. SKIN: No rash or itching, lesions, wounds. CARDIOVASCULAR: + Chronic BL LE edema. No chest pain, chest pressure or chest discomfort, palpitations, edema, orthopnea, syncopal events. RESPIRATORY: No dyspnea, cough or sputum, wheezing, hemoptysis. GASTROINTESTINAL: + anorexia, nausea without emesis, abdominal pain, dyspepsia, belching. No melena, BRBPR. GENITOURINARY: No dysuria, frequency, urgency or retention. NEUROLOGICAL: No dizziness, headache, syncope, paralysis, ataxia, numbness or tingling in the extremities, focal weakness, change in bowel or bladder control, seizure. MUSCULOSKELETAL: + muscle, back pain, joint pain or stiffness. HEMATOLOGIC: + Chronic anemia with history of previous GI bleed, easy bleeding/bruising. LYMPHATICS: No enlarged nodes. No history of splenectomy. PSYCHIATRIC: + history of depression and anxiety. ENDOCRINOLOGIC: No reports of sweating, cold or heat intolerance. No polyuria or polydipsia. ALLERGIES: No history of asthma, hives, eczema or rhinitis. Vital Signs Vital Signs Vital Signs: 09/10/23 17:32 09/10/23 19:31 Temperature 96.9 F L Temperature Source Temporal Pulse Rate 88 Respiratory Rate 18 Blood Pressure 142/83 H 163/101 H Blood Pressure Mean 102 121 Pulse Ox 93 96 Oxygen Delivery Method Room Air Room Air Weight Weight: 272 lb 0.807 oz Body Mass Index (BMI) 39.0 Physical Exam Narrative Physical Examination: General: Awake, alert, oriented x 3 and cooperative, seated upright in the ED bed, fatigued appearing but no acute distress. Skin: Normal color, normal turgor, no icterus, no cyanosis except chronic bilateral lower extremity lymphedema with chronic venous stasis skin changes. HEENT: AT/NC, EOMI, PERRLA, mildly dry MM, no carotid bruits, or marked JVD noted; however, difficult exam as notable thickened neck. Lungs: Diminished, greater bases, appropriate effort, no rales, ronchi or wheezing. Heart: Irregular, rate controlled; no gallop, rub audible. Abdomen: Soft, obese, primarily discomfort to palpation in the right upper quadrant with voluntary guarding, no rebound, no discomfort noted in the epigastric region, mildly distended with tympany, mildly hyperactive BS, given morbidly obese habitus difficult to discern HSM with hepatomegaly noted on imaging. Extremities: No cyanosis, no clubbing, chronic bilateral lower extremity lymphedema 2+ pitting with chronic venous stasis skin changes. Neurological: Patient awake, alert, oriented as noted, cognitive function intact; pupils equally reactive to light and accommodation, cranial nerves II-XII grossly normal, moving all 4 extremities, no focal deficits, strength moderately to severely globally decreased secondary to acute presentation. Psychiatric: Affect appears fatigued, no acute evidence of depressive or anxiety feelings but does have underlying history. Results Lab / Micro Data 09/10/23 18:10 09/10/23 18:10 Labs: Laboratory Results - last 24 hr 09/10/23 18:10: WBC 8.4, RBC 3.89 L, Hgb 10.2 L, Hct 33.3 L, MCV 85.6, MCH 26.2 L, MCHC 30.6 L, RDW Std Deviation 50.4 H, RDW Coeff of Thao 16.2 H, Plt Count 348, MPV 8.9, Immature Gran % (Auto) 2.000 H, Neut % (Auto) 82.0 H, Lymph % (Auto) 4.9 L, [place] % (Auto) 9.4, Eos % (Auto) 1.3, Baso % (Auto) 0.4, Absolute Neuts (auto) 6.9, Absolute Lymphs (auto) 0.41 L, Nucleated RBC % 0, Sodium 135 L, Potassium 4.3, Chloride 101, Carbon Dioxide 26.0, Anion Gap 8, BUN 58 H, Creatinine 2.13 H, Estim Creat Clear Calc 44.95, Est GFR (MDRD) Af Amer 40 L, Est GFR (MDRD) Non-Af 33 L, BUN/Creatinine Ratio 27.2 H, Glucose 363 H, Calcium 10.2 H, Total Bilirubin 0.50, AST 20, ALT 22, Alkaline Phosphatase 75, Troponin I High Sens 25, Total Protein 7.5, Albumin 3.2, Globulin 4.3 H, Albumin/Globulin Ratio 0.7 L, Lipase 106 H 09/10/23 18:20: Urine Color Yellow, Urine Clarity Sl. Cloudy, Urine pH 7.0, Ur Specific Leiter 1.010, Urine Protein 15 H, Urine Glucose (UA) 1000 H, Urine Ketones Negative, Urine Occult Blood Negative, Urine Nitrite Negative, Urine Bilirubin Negative, Urine Urobilinogen Normal, Ur Leukocyte Esterase Negative, Urine RBC 0 SEEN, Urine WBC 0 SEEN, Ur Squamous Epith Cells 0-5 SEEN, Urine Bacteria 0 SEEN, Urine Mucus 0 SEEN Imaging Radiology Impression Abdomen/Pelvis CT 09/10/23 17:56 IMPRESSION: (NOT LISTED IN ORDER OF SIGNIFICANCE) Hepatomegaly. Small right pleural effusion. Small bowel ileus. Other findings as above. Electronically Signed: Jaret Hicks MD at 20:16 EDT Reading Location ID and State: [facility] / [place] , Service support , Assessment & Plan Assessment/Plan (1) Ileus: PLAN: Plan The patient is a 67 y/o M w/ PMHx: Hx SSS s/p pacemaker status, Hyperparathyroidism with hypercalcemia, CKD stage III unclear subtype, Chronic normocytic anemia/iron deficiency anemia, Anxiety and Depression, CAD s/p PCI, Asthma, Hx VTE (DVT, PE), HTN, HLD, FAVIAN, Seizure disorder, Diabetes mellitus type II, PAF, HFpEF who presents to the [facility] ED on 09/10/2023 with onset following dinner earlier in the evening which consisted of a cheeseburger epigastric and right upper quadrant discomfort and burning light sensation with belching and sensation of distention not improving with nausea without emesis prompting eventual ED evaluation. Patient in the ED notes he feels somewhat improved after ED interventions but still has tenderness to palpation on exam more so in the right upper quadrant. #1. Abdominal discomfort, distention, nausea without emesis with mildly elevated lipase/mild pancreatitis with concern for acute cholelithiasis, uncertain if cholecystitis component with concurrent possible ileus: Will admit to [facility], maintain on very judicious IVFs, NPO, IV PPI, IV/po pain control, trend lipase, CMP. Will obtain RUQ US as concerned that presentation is more so secondary to underlying gallbladder etiology. Will continue gastroenterology consultation and did update their service to suspicions that gallbladder may be the primary concern. If there are concerning findings on imaging we will then need to place consultation with general surgery. Also given unclear etiology and diabetic history to be cautious in case gastroparesis is associated will place on low-dose Reglan in the interim. Currently is maintained on Plavix therapy thus if any intervention was necessary this would be need to be held. #2. HFpEF with chronic bilateral lower extremity lymphedema/venous stasis disease: Recent admission 07/2023 for acute exacerbation, currently appears compensated, most recent echocardiogram noted 10/21/2022 with EF 55 to 60%, normal LV systolic function, moderate MR. Given presentation will very judiciously hydrate as needed, continue home metoprolol, Lasix, hydralazine, losartan, Plavix home regimen, per current list is not on statin therapy but instead is on fenofibrate, clarifying. Will place snug armaan wraps. #3. History of GI bleed: We will continue patient home PPI and sucralfate but clarifying home regimen. 03/01/2023 noted upper endoscopy with esophageal mucosal changes consistent with long segment Tuttle's esophagus which was biopsied, oozing gastric ulcers with pigmented material treated with a heater probe, evidence of gastritis also which was biopsied, oozing gastric ulcer with visible vessel which was injected and also treated with a heater probe and biopsied within normal second portion of duodenum. Encourage continued outpatient follow-up with gastroenterology as previously arranged. #4. Chronic Kidney Disease Stage III, unclear subtype: Admission BUN/Cr 58/2.13, GFR 33, baseline renal function primarily 1.8-2.1 per recent trending, repeat BMP in AM. #5. Chronic normocytic anemia: Admission hemoglobin 10.2, MCV 85.6, baseline hemoglobin primarily 9-10, stable, continue to trend. #6. History sick sinus syndrome: Status post pacemaker placement per Dr. Hua, encourage continued outpatient follow-up with cardiology as previously arranged. #7. Hyperparathyroidism with hypercalcemia: Admission BMP with calcium 12. 2 which is baseline for patient, will continue Cinacalcet regimen, encourage continued outpatient follow-up as previously arranged. #8. PAF: We will continue patient home metoprolol regimen, previously had been on Eliquis but given GI bleed this had been discontinued. #9. Diabetes mellitus type II: Hold oral home regimen, continue home insulin regimen, given current presentation maintaining on bowel rest, while n.p.o. will maintain on every 6 hours accu checks w/ ISS. #10. Anxiety and depression: Will continue patient home Paxil regimen. #11. Hypertension: Continue home regimen including amlodipine, losartan, metoprolol, Lasix as noted with hold parameters as needed, PRN hydralazine. #12. Hyperlipidemia: Will continue home fenofibrate regimen, not on statin therapy. #13. Obesity: Weight loss and lifestyle changes encouraged. #14. FAVIAN: BIPAP nightly. #15. DVT prophylaxis: Per current medication list not on chronic anticoagulation as patient had been previously but discontinued secondary to GI bleed history, will maintain on chemoprophylactic heparin dosing. #16. CODE status: Patient HCPOA and living will are not in place. Discussed CODE status at length including difference between FULL code, DNR-CCA and DNR-CC status. Following discussions about the differences in these status, requested Full code status. Advanced Care Planning Face to Face Time: 16 minutes. Charges/Coding Visit Charges Inpatient E&M: 27972 Init Hosp L3 Procedures Hospitalists Procedures: 25724 Advncd Care Plan 30 Min
[2023-09-10 21:01] VITALS: BP 130/80; PULSE 86; RESP 18; TEMP 36.4; O2SAT 99
--- NOTE | 2023-09-10 21:02 | US_ITS ---
STUDY: ABDOMINAL ULTRASOUND - RIGHT UPPER QUADRANT REASON FOR VISIT: Male, 67 years old abdominal pain TECHNIQUE: Ultrasound evaluation of the right upper quadrant was performed with real-time and static preston-scale imaging. TECHNICAL QUALITY: Adequate. COMPARISON: CT abdomen and pelvis from today. FINDINGS: Liver: The liver measures 18.5 cm. There is normal echogenicity of the liver. The bile ducts are within normal limits. There is hepatic color flow. The direction of portal flow is hepatopetal. 7 x 6 mm echogenic lesion left lobe of the liver representing a calcification. Gallbladder: There is a markedly distended gallbladder. The gallbladder wall measures 2 mm. There is a negative sonographic Melo''s sign. There is no pericholecystic fluid. There are no gallstones. Common Bile Duct (C.B.D.): The common bile duct measures 5 mm. Pancreas: Body and tail not visualized due to bowel gas. Right Kidney: There is hypertrophy of the right kidney. The right kidney measures 15 cm. Normal renal cortex.. Multiple simple cysts measuring up to 3 cm. There is no right hydronephrosis. US/Gallbladder IMPRESSION: Distended gallbladder otherwise unremarkable exam. Electronically Signed: Jimmy Portillo MD at 23:39 EDT ,
[2023-09-10 23:06] VITALS: BP 131/75; PULSE 80; RESP 18; TEMP 36.7; O2SAT 92
[2023-09-10 23:12] VITALS: RESP 15; O2SAT 96; BMI 36.1
--- NOTE | 2023-09-10 23:19 | CPS ---
Pt refuses bipap at this time, will wear O2
[2023-09-10 23:58] LABS: Bedside Glucose 158 mg/dL (74-106)
[2023-09-11] VITALS (8 sets, daily range): BP systolic 98–131; BP diastolic 58–75; PULSE 60–82; RESP 15–16; TEMP 36.9–37.6; O2SAT 94–97; BMI 35.9
[2023-09-11] MEDS: Insulin Lispro 100 UNIT/ML INSULN.PEN SC (00:08)
[2023-09-11] MEDS: Insulin Glargine-YFGN 100 UNIT/ML Pen 15 UNIT SC ×2 (00:09→08:21)
[2023-09-11] MEDS: Heparin Injection (Vial) 5,000 UNIT/ML VIAL 5000 UNIT SC ×2 (00:11→08:20)
[2023-09-11] MEDS: Furosemide 40 MG Tablet PO ×2 (00:18→08:19)
[2023-09-11] MEDS: Ranolazine 500 MG Tablet PO ×2 (00:18→08:19)
[2023-09-11] MEDS: Cinacalcet HCl 30 MG Tablet PO ×2 (00:18→08:19)
[2023-09-11] MEDS: Sucralfate 1 GM Tablet PO ×3 (00:18→11:13)
[2023-09-11] MEDS: Metoclopramide 10 MG/2 ML Vial 5 MG IV ×2 (00:24→06:33)
[2023-09-11] MEDS: 0.9% Normal Saline (1000mL) 1,000 ML 75 ML IV (00:28)
[2023-09-11] MEDS: Metoprolol(XL)Succ 50 MG Tablet PO ×2 (00:34→08:26)
[2023-09-11] MEDS: hydrALAZINE 25 MG Tablet PO ×2 (00:34→06:32)
[2023-09-11] MEDS: Pantoprazole Sodium 40 MG in 0.9% Normal Saline (100mL MB+) 100 ML 330 MG IV ×2 (00:39→08:27)
[2023-09-11] MEDS: oxyCODONE 5 MG Tablet PO ×2 (01:25→08:27)
[2023-09-11 07:06] LABS: Absolute Lymphocyte Count 0.34 X10^3/uL (0.83-4.51); Absolute Neutrophil Count 7.7 X10^3/uL (2.0-7.7); Basophil# 0.04 X10^3/uL; Basophil% 0.4 % (0-1); Eosinophils% 1.1 % (0-5); Hematocrit 29.3 % (40-54); Hemoglobin 8.7 g/dL (13.0-16.5); Lymphocyte # 0.34 X10^3/ul (0.83-4.51); Lymphocyte % 3.6 % (19-41); Mean Corp Hgb Conc 29.7 g/dL (32-36); Mean Corpuscular Hgb 25.7 pg (27.0-32.0); Mean Corpuscular Volume 86.7 fL (80-94); Mean Platelet Vol. 9.1 fl (6.2-12.0); Monocyte# 1.08 X10^3/uL; Monocyte% 11.5 % (0-10); NRBC Flagged by Analyzer 0 % (0-5); Neutrophil # 7.72 X10^3/uL (2.7-7.7); Neutrophil % 82.4 % (47-70); POSITIVE DIFFERENTIAL YES; Platelet Count 299 K/mm3 (150-450); RBC Distribution Width CV 16.1 % (11.6-14.6); RBC Distribution Width SD 50.6 fl (35.1-43.9); Red Blood Count 3.38 M/mm3 (4.6-6.2); White Blood Count 9.4 K/mm3 (4.4-11.0)
[2023-09-11 07:24] LABS: Bedside Glucose 124 mg/dL (74-106)
[2023-09-11 07:39] LABS: ALB/GLOB Ratio 0.8 RATIO (0.9-2.4); AST(SGOT) 15 U/L (15-37); Alanine Aminotransfer ALT/SGPT 17 U/L (16-61); Albumin, Serum 2.7 g/dL (3.2-5.0); Alkaline Phosphatase 64 U/L (45-117); Anion Gap 5 (5-15); BUN 50 mg/dL (7-18); BUN/Creat Ratio 26.9 RATIO (10-20); Calcium,Total 9.8 mg/dL (8.5-10.1); Chloride 107 mmol/L (98-107); Creatinine, Serum 1.86 mg/dL (0.70-1.30); EST Glomerular Filtration Rate 39 mL/min (>60); Est Glom Filt Rate - Afr Amer 47 mL/min (>60); Globulin 3.6 g/dL (2.2-4.2); Glucose 135 mg/dL (74-106); Lipase 66 U/L (13-75); Potassium 3.8 mmol/L (3.5-5.1); Protein, Total 6.3 g/dL (6.4-8.2); Sodium Level 140 mmol/L (136-145)
[2023-09-11] MEDS: Ferrous Sulfate 325 MG Tablet PO (08:18)
--- NOTE | 2023-09-11 08:18 | PCM.PN.HOSP ---
Reason for Visit Reason for Visit: Diagnoses Ileus, unspecified (09/10/23) Objective Data Objective Data Vital Signs: Vital Signs Temp Pulse Resp BP Pulse Ox O2 Del Method O2 Flow Rate 98.6 F 80 15 115/63 97 Nasal Cannula 2 09/11/23 04:00 09/11/23 06:32 09/11/23 05:12 09/11/23 04:00 09/11/23 04:00 09/11/23 05:12 09/11/23 05:12 Oxygen Flow Rate (L/min) 2 Oxygen Delivery Method Nasal Cannula Weight: 114 kg Body Mass Index (BMI) 35.9 Intake & Output: Intake and Output for Last 24 Hours 09/09/23 09/10/23 09/11/23 23:59 23:59 23:59 Intake Total 110 / 110 Balance 110 / 110 Lab / Micro Data 09/11/23 06:14 09/11/23 06:14 Labs: Laboratory Results - last 24 hr 09/10/23 18:10: WBC 8.4, RBC 3.89 L, Hgb 10.2 L, Hct 33.3 L, MCV 85.6, MCH 26.2 L, MCHC 30.6 L, RDW Std Deviation 50.4 H, RDW Coeff of Thao 16.2 H, Plt Count 348, MPV 8.9, Immature Gran % (Auto) 2.000 H, Neut % (Auto) 82.0 H, Lymph % (Auto) 4.9 L, [place] % (Auto) 9.4, Eos % (Auto) 1.3, Baso % (Auto) 0.4, Absolute Neuts (auto) 6.9, Absolute Lymphs (auto) 0.41 L, Nucleated RBC % 0, Sodium 135 L, Potassium 4.3, Chloride 101, Carbon Dioxide 26.0, Anion Gap 8, BUN 58 H, Creatinine 2.13 H, Estim Creat Clear Calc 44.95, Est GFR (MDRD) Af Amer 40 L, Est GFR (MDRD) Non-Af 33 L, BUN/Creatinine Ratio 27.2 H, Glucose 363 H, Calcium 10.2 H, Total Bilirubin 0.50, AST 20, ALT 22, Alkaline Phosphatase 75, Troponin I High Sens 25, Total Protein 7.5, Albumin 3.2, Globulin 4.3 H, Albumin/Globulin Ratio 0.7 L, Lipase 106 H 09/10/23 18:20: Urine Color Yellow, Urine Clarity Sl. Cloudy, Urine pH 7.0, Ur Specific [place] 1.010, Urine Protein 15 H, Urine Glucose (UA) 1000 H, Urine Ketones Negative, Urine Occult Blood Negative, Urine Nitrite Negative, Urine Bilirubin Negative, Urine Urobilinogen Normal, Ur Leukocyte Esterase Negative, Urine RBC 0 SEEN, Urine WBC 0 SEEN, Ur Squamous Epith Cells 0-5 SEEN, Urine Bacteria 0 SEEN, Urine Mucus 0 SEEN 09/10/23 23:38: POC Glucose 158 H 09/11/23 06:14: WBC 9.4, RBC 3.38 L, Hgb 8.7 L, Hct 29.3 L, MCV 86.7, MCH 25.7 L, MCHC 29.7 L, RDW Std Deviation 50.6 H, RDW Coeff of Thao 16.1 H, Plt Count 299, MPV 9.1, Immature Gran % (Auto) 1.000 H, Neut % (Auto) 82.4 H, Lymph % (Auto) 3.6 L, [place] % (Auto) 11.5 H, Eos % (Auto) 1.1, Baso % (Auto) 0.4, Absolute Neuts (auto) 7.7, Absolute Lymphs (auto) 0.34 L, Nucleated RBC % 0, Sodium 140, Potassium 3.8, Chloride 107, Carbon Dioxide 28.0, Anion Gap 5, BUN 50 H, Creatinine 1.86 H, Estim Creat Clear Calc 49.40, Est GFR (MDRD) Af Amer 47 L, Est GFR (MDRD) Non-Af 39 L, BUN/Creatinine Ratio 26.9 H, Glucose 135 H, Calcium 9.8, Total Bilirubin 0.50, AST 15, ALT 17, Alkaline Phosphatase 64, Total Protein 6.3 L, Albumin 2.7 L, Globulin 3.6, Albumin/Globulin Ratio 0.8 L, Lipase 66 09/11/23 06:31: POC Glucose 124 H Radiography Diagnostic Testing: Radiology Impression Abdomen/Pelvis CT 09/10/23 17:56 IMPRESSION: (NOT LISTED IN ORDER OF SIGNIFICANCE) Hepatomegaly. Small right pleural effusion. Small bowel ileus. Other findings as above. Electronically Signed: Jaret Hicks MD at 20:16 EDT , Gallbladder Ultrasound 09/10/23 21:02 IMPRESSION: Distended gallbladder otherwise unremarkable exam. Electronically Signed: Jimmy Portillo MD at 23:39 EDT , Physical Exam Narrative GENERAL: cooperative HEENT: Atraumatic; normocephalic EYES; Anicteric, Normal Conjunctiva NECK; supple, normal thyroid, RESPIRATORY: Diminished to auscultation CARDIOVASCULAR: Regular S1 S2, GI: soft, normoactive bowel sounds, : No Renal angle tenderness; EXTREMITIES: Lateral lower extremity stasis dermatitis MUSCULOSKELETAL: no muscle wasting NEURO: Awake; no lateralizing signs. SKIN: As described above PSYCH; Flat affect y. Assessment & Plan Assessment/Plan (1) Ileus: PLAN: Plan The patient is a 67 y/o M w/ PMHx: Hx SSS s/p pacemaker status, Hyperparathyroidism with hypercalcemia, CKD stage III unclear subtype, Chronic normocytic anemia/iron deficiency anemia, Anxiety and Depression, CAD s/p PCI, Asthma, Hx VTE (DVT, PE), HTN, HLD, FAVIAN, Seizure disorder, Diabetes mellitus type II, PAF, HFpEF who presents to the [facility] ED on 09/10/2023 with onset following dinner earlier in the evening which consisted of a cheeseburger epigastric and right upper quadrant discomfort and burning light sensation with belching and sensation of distention not improving with nausea without emesis prompting eventual ED evaluation. Patient in the ED notes he feels somewhat improved after ED interventions but still has tenderness to palpation on exam more so in the right upper quadrant. #1. Abdominal discomfort, distention, nausea without emesis with mildly elevated lipase/mild pancreatitis with concern for acute cholelithiasis, uncertain if cholecystitis component with concurrent possible ileus: Will admit to [facility], maintain on very judicious IVFs, NPO, IV PPI, IV/po pain control, trend lipase, CMP. Will obtain RUQ US as concerned that presentation is more so secondary to underlying gallbladder etiology. Will continue gastroenterology consultation and did update their service to suspicions that gallbladder may be the primary concern. If there are concerning findings on imaging we will then need to place consultation with general surgery. Also given unclear etiology and diabetic history to be cautious in case gastroparesis is associated will place on low-dose Reglan in the interim. Currently is maintained on Plavix therapy thus if any intervention was necessary this would be need to be held. #2. HFpEF with chronic bilateral lower extremity lymphedema/venous stasis disease: Recent admission 07/2023 for acute exacerbation, currently appears compensated, most recent echocardiogram noted 10/21/2022 with EF 55 to 60%, normal LV systolic function, moderate MR. Given presentation will very judiciously hydrate as needed, continue home metoprolol, Lasix, hydralazine, losartan, Plavix home regimen, per current list is not on statin therapy but instead is on fenofibrate, clarifying. Will place snug armaan wraps. #3. History of GI bleed: We will continue patient home PPI and sucralfate but clarifying home regimen. 03/01/2023 noted upper endoscopy with esophageal mucosal changes consistent with long segment Tuttle's esophagus which was biopsied, oozing gastric ulcers with pigmented material treated with a heater probe, evidence of gastritis also which was biopsied, oozing gastric ulcer with visible vessel which was injected and also treated with a heater probe and biopsied within normal second portion of duodenum. Encourage continued outpatient follow-up with gastroenterology as previously arranged. 2. Coronary artery disease ? With history of PCI LAD PTCA/DANIEL 2016 and OM1 PCI 10/2021, 3. Paroxysmal A-fib ? Controlled on systemic anticoagulation with apixaban ? 10/23/2022 apixaban held currently on heparin 4. Right olecranon bursitis ? Managed with anti-inflammatory medications as well as steroid and tramadol for pain plans for patient to follow-up with orthopedic surgeon Dr. Gary as outpatient 5. Hyperparathyroidism with history of hypercalcemia ? Patient is on Cinacalcet 6. Hypertension - Blood pressure controlled, home medications continued with dose adjustment as needed 7. Diabetes mellitus type II -patient's oral hypoglycemics held. Placed on long acting insulin, Accu-Cheks a.c. and at bedtime and covered with sliding scale insulin 8. Chronic kidney disease stage III ? Kidney function at baseline 9. Depression with anxiety ? Patient is on SSRI regimen?Paxil did continue 10. Dyslipidemia ? Patient is on fenofibrate 11. Class II obesity with BMI of 38 point ? Complicating care weight loss advised 12. Obstructive sleep apnea ? On CPAP at night 13. DVT prophylaxis ? On apixaban Time spent in the patient's overall evaluation,decision-making process, review of diagnostic data, adjustment of management, discussion with other providers, nursing nursing and ancillary staff involved in patient's care documentation, 50 minutes #4. Chronic Kidney Disease Stage III, unclear subtype: Admission BUN/Cr 58/2.13, GFR 33, baseline renal function primarily 1.8-2.1 per recent trending, repeat BMP in AM. #5. Chronic normocytic anemia: Admission hemoglobin 10.2, MCV 85.6, baseline hemoglobin primarily 9-10, stable, continue to trend. #6. History sick sinus syndrome: Status post pacemaker placement per Dr. Hua, encourage continued outpatient follow-up with cardiology as previously arranged. #7. Hyperparathyroidism with hypercalcemia: Admission BMP with calcium 12. 2 which is baseline for patient, will continue Cinacalcet regimen, encourage continued outpatient follow-up as previously arranged. #8. PAF: We will continue patient home metoprolol regimen, previously had been on Eliquis but given GI bleed this had been discontinued. #9. Diabetes mellitus type II: Hold oral home regimen, continue home insulin regimen, given current presentation maintaining on bowel rest, while n.p.o. will maintain on every 6 hours accu checks w/ ISS. #10. Anxiety and depression: Will continue patient home Paxil regimen. #11. Hypertension: Continue home regimen including amlodipine, losartan, metoprolol, Lasix as noted with hold parameters as needed, PRN hydralazine. #12. Hyperlipidemia: Will continue home fenofibrate regimen, not on statin therapy. #13. Obesity: Weight loss and lifestyle changes encouraged. #14. FAVIAN: BIPAP nightly. #15. DVT prophylaxis: Per current medication list not on chronic anticoagulation as patient had been previously but discontinued secondary to GI bleed history, will maintain on chemoprophylactic heparin dosing. #16. CODE status: Patient HCPOA and living will are not in place. Discussed CODE status at length including difference between FULL code, DNR-CCA and DNR-CC status. Following discussions about the differences in these status, requested Full code status. Advanced Care Planning Face to Face Time: 16 minutes.
[2023-09-11] MEDS: amLODIPine 10 MG Tablet PO (08:19)
[2023-09-11] MEDS: Clopidogrel Bisulfate 75 MG Tablet PO (08:19)
[2023-09-11] MEDS: Losartan Potassium 25 MG Tablet PO (08:19)
[2023-09-11] MEDS: Fenofibrate 145 MG Tablet PO (08:20)
[2023-09-11] MEDS: Paroxetine 20 MG Tablet 40 MG PO (08:20)
[2023-09-11] MEDS: Potassium Chloride Oral Tablet 20 MEQ PO (08:21)
--- NOTE | 2023-09-11 09:18 | CASEMGMT ---
Discharge Planning Updates sent to [facility] via [facility]. Jennifer Stringer DC Planning Asst.
--- NOTE | 2023-09-11 09:20 | CASEMGMT ---
Social Work- SW met with pt to discuss pt preferences for d/c. Pt declines a list of facilities, as he states that he is a permanent resident of [facility] and plans to return. DCA advised that pt would like to return to [facility]. LAURENCE Reed
--- NOTE | 2023-09-11 11:33 | DS.PCM_ITS ---
Providers Date of Admission: 09/10/23 Date of Discharge: 09/11/23 Primary Care Physician: Dr. Hank Negrete MD Consultations 09/10/23 22:35 Consult: Gastroenterology Routine Consulting Provider: [facility] Reason for Consult: Ileus, abdominal pain EMERGENT Consult: No MD Notified: Yes Date Notified: 09/10/23 Time Notified: 20:57 Method of Notification: ED Physician Initiated Reason For Visit: ABDOMINAL PAIN, ILEUS Diagnosis Discharge Diagnosis (1) Ileus: Status: Acute Code(s): K56.7 - Ileus, unspecified Plan Patient is a 67-year-old gentleman resident at an [facility] admitted with abdominal pain imaging studies demonstrated findings consistent with ileus 1. Abdominal pain Is secondary to ileus ? Patient managed conservatively next 2. Coronary artery disease ? With history of PCI LAD PTCA/DANIEL 2016 and OM1 PCI 10/2021, 3. Paroxysmal A-fib ? C patient was previously treated with apixaban discontinued following GI bleed 4. Hyperparathyroidism with history of hypercalcemia ? Patient is on Cinacalcet 5. Anemia - Secondary to chronic disorder monitoring H&H and transfuse if patient becomes symptomatic or hemoglobin falls below 7 6. Hypertension - Blood pressure controlled, home medications continued with dose adjustment as needed 7. Diabetes mellitus type II -patient's oral hypoglycemics held. Placed on long acting insulin, Accu-Cheks a.c. and at bedtime and covered with sliding scale insulin 8. Chronic kidney disease stage III ? Kidney function at baseline 9. Depression with anxiety ? Patient is on SSRI regimen?Paxil did continue 10. Dyslipidemia ? Patient is on fenofibrate 11. Class II obesity with BMI of 38 point ? Complicating care weight loss advised 12. Obstructive sleep apnea ? On CPAP at night 13. DVT prophylaxis SC heparin Medications at Discharge Home Medications clopidogrel 75 mg tablet 75 mg PO DAILY BLOOD THINNER #90 tabs 10/03/22 ranolazine 500 mg tablet,extended release,12 hr 500 mg PO BID chest pain #180 tabs 12/20/22 cinacalcet 30 mg tablet 30 mg PO BID hypercalcemia #60 tabs 03/07/23 albuterol sulfate 90 mcg/actuation aerosol inhaler 2 puff inhalation Q6H PRN shortness of breath or wheezing 04/14/23 amlodipine 5 mg tablet 10 mg PO DAILY blood pressure 04/14/23 ferrous sulfate 325 mg (65 mg iron) tablet 325 mg PO DAILY supplement #90 tabs 05/19/23 paroxetine HCl 40 mg tablet 40 mg PO DAILY mood #30 tabs 05/19/23 pantoprazole 40 mg tablet,delayed release 40 mg PO DAILY GI #90 tabs 06/01/23 metoprolol succinate 50 mg tablet,extended release 24 hr 50 mg PO Q12H blood pressure #60 tabs 06/12/23 furosemide 40 mg tablet 40 mg PO BID water pill #30 tabs 07/31/23 hydralazine 25 mg tablet 25 mg PO TID #0 tabs 07/31/23 insulin glargine-yfgn 100 unit/mL (3 mL) subcutaneous pen 15 unit (0.15 mL) subcut BID #0 mL 07/31/23 losartan 25 mg tablet 25 mg PO DAILY #0 tabs 07/31/23 oxycodone 5 mg tablet 5 mg PO Q4H PRN PRN Pain Score 6-10 2 days #10 tabs 07/31/23 potassium chloride 20 mEq tablet,extended release(part/cryst) 20 meq PO BIDCM #0 tabs 07/31/23 sucralfate 1 gram tablet 1 g PO 1HR_ACHS #0 tabs 07/31/23 bisacodyl 10 mg rectal suppository 10 mg [place] DAILY PRN constipation 08/08/23 insulin lispro 100 unit/mL subcutaneous solution (Humalog U-100 Insulin) 1 sliding scale dose subcut USEASDIRECTD 08/08/23 magnesium hydroxide 400 mg/5 mL oral suspension (Milk of Magnesia) 30 ml PO DAILY PRN constipation 08/08/23 mineral oil (Fleet Mineral Oil enema) 118 ml [place] DAILY PRN constipation 08/08/23 fenofibrate micronized 200 mg capsule 145 mg PO DAILY 08/11/23 semaglutide 1 mg/dose (4 mg/3 mL) subcutaneous pen injector (Ozempic) 1 mg subcut QWEEK 09/10/23 Physical Exam Narrative GENERAL: cooperative HEENT: Atraumatic; normocephalic EYES; Anicteric, Normal Conjunctiva NECK; supple, normal thyroid, RESPIRATORY: Diminished to auscultation CARDIOVASCULAR: Regular S1 S2, GI: soft, normoactive bowel sounds, : No Renal angle tenderness; EXTREMITIES: No edema, no clubbing, MUSCULOSKELETAL: no muscle wasting NEURO: Awake; no lateralizing signs. SKIN: No Rash PSYCH; Flat affect Weight / BMI Weight Weight: 114 kg Body Mass Index (BMI) 35.9 ABG / Lab / Microbiology Data 09/11/23 06:14 09/11/23 06:14 Laboratory: Laboratory Results - last 24 hr 09/10/23 18:10: WBC 8.4, RBC 3.89 L, Hgb 10.2 L, Hct 33.3 L, MCV 85.6, MCH 26.2 L, MCHC 30.6 L, RDW Std Deviation 50.4 H, RDW Coeff of Thao 16.2 H, Plt Count 348, MPV 8.9, Immature Gran % (Auto) 2.000 H, Neut % (Auto) 82.0 H, Lymph % (Auto) 4.9 L, [place] % (Auto) 9.4, Eos % (Auto) 1.3, Baso % (Auto) 0.4, Absolute Neuts (auto) 6.9, Absolute Lymphs (auto) 0.41 L, Nucleated RBC % 0, Sodium 135 L , Potassium 4.3, Chloride 101, Carbon Dioxide 26.0, Anion Gap 8, BUN 58 H, C reatinine 2.13 H, Estim Creat Clear Calc 44.95, Est GFR (MDRD) Af Amer 40 L, Est GFR (MDRD) Non-Af 33 L, BUN/Creatinine Ratio 27.2 H, Glucose 363 H, Calcium 10.2 H, Total Bilirubin 0.50, AST 20, ALT 22, Alkaline Phosphatase 75, Troponin I High Sens 25, Total Protein 7.5, Albumin 3.2, Globulin 4.3 H, Albumin/Globulin Ratio 0.7 L, Lipase 106 H 09/10/23 18:20: Urine Color Yellow, Urine Clarity Sl. Cloudy, Urine pH 7.0, Ur Specific [place] 1.010, Urine Protein 15 H, Urine Glucose (UA) 1000 H, Urine Ketones Negative, Urine Occult Blood Negative, Urine Nitrite Negative, Urine Bilirubin Negative, Urine Urobilinogen Normal, Ur Leukocyte Esterase Negative, Urine RBC 0 SEEN, Urine WBC 0 SEEN, Ur Squamous Epith Cells 0-5 SEEN, Urine Bacteria 0 SEEN, Urine Mucus 0 SEEN 09/10/23 23:38: POC Glucose 158 H 09/11/23 06:14: WBC 9.4, RBC 3.38 L, Hgb 8.7 L, Hct 29.3 L, MCV 86.7, MCH 25.7 L , MCHC 29.7 L, RDW Std Deviation 50.6 H, RDW Coeff of Thao 16.1 H, Plt Count 299, MPV 9.1, Immature Gran % (Auto) 1.000 H, Neut % (Auto) 82.4 H, Lymph % (Auto) 3.6 L, [place] % (Auto) 11.5 H, Eos % (Auto) 1.1, Baso % (Auto) 0.4, Absolute Neuts (auto) 7.7, Absolute Lymphs (auto) 0.34 L, Nucleated RBC % 0, Sodium 140, Potassium 3.8, Chloride 107, Carbon Dioxide 28.0, Anion Gap 5, BUN 50 H, C reatinine 1.86 H, Estim Creat Clear Calc 49.40, Est GFR (MDRD) Af Amer 47 L, Est GFR (MDRD) Non-Af 39 L, BUN/Creatinine Ratio 26.9 H, Glucose 135 H, Calcium 9.8, Total Bilirubin 0.50, AST 15, ALT 17, Alkaline Phosphatase 64, Total Protein 6.3 L, Albumin 2.7 L, Globulin 3.6, Albumin/Globulin Ratio 0.8 L, Lipase 66 09/11/23 06:31: POC Glucose 124 H Radiography Diagnostic Testing: Radiology Impression Abdomen/Pelvis CT 09/10/23 17:56 IMPRESSION: (NOT LISTED IN ORDER OF SIGNIFICANCE) Hepatomegaly. Small right pleural effusion. Small bowel ileus. Other findings as above. Electronically Signed: Jaret Hicks MD at 20:16 EDT , Gallbladder Ultrasound 09/10/23 21:02 IMPRESSION: Distended gallbladder otherwise unremarkable exam. Electronically Signed: Jimmy Portillo MD at 23:39 EDT , D/C Instructions Discharge Diet: Low fat / Low cholesterol and 1800 Calorie Control Diet Discharge Activity: Return to Normal Activity Call your doctor if you observe: Fever of 101 or Higher, Shortness of breath, Fainting spells and Chest pain Meaningful Use Info Meaningful Use Meaningful Use Diagnoses (Choose all that apply): None applicable Ischemic Stroke Statin Dosing Therapy Reference: STATIN DOSE THERAPY REFERENCE: * Patients > 75 years receive moderate or high dose statin therapy. * Patients 75 years or YOUNGER should receive HIGH intensity statin dose unless contraindicated. You will be required to document reason for non-treatment if statin daily dose does not meet guidelines. HIGH DOSE STATIN THERAPY DAILY Atorvastatin > than or = to 40 mg Rosuvastatin > than or = to 20 mg Amlodipine + Atorvastatin > than or = to 2.5/40 mg Ezetimibe + Simvastatin 10/80 mg Simvastatin 80mg Discharge Plan Admission Admit Date/Time: 09/10/23 20:55 Attending Provider: Ryan Coreas Primary Care Provider: Hank Negrete Consulting Providers: Purvi Jensen Discharge Orders/Prescriptions Prescriptions: Continued cinacalcet 30 mg tablet 30 mg PO BID Qty: 60 8RF mineral oil [Fleet Mineral Oil] Enema 118 ml [place] DAILY PRN (Reason: constipation) Rx Instructions: discard any unused portion magnesium hydroxide [Milk of Magnesia] 400 mg/5 mL suspension 30 ml PO DAILY PRN (Reason: constipation) bisacodyl 10 mg suppository 10 mg [place] DAILY PRN (Reason: constipation) insulin lispro [Humalog U-100 Insulin] 100 unit/mL solution 1 sliding scale dose subcut USEASDIRECTD Rx Instructions: 200-250 5 units 251-300 8 units 301-350 12 units Use IM before meals and at bedtime for DM albuterol sulfate 90 mcg/actuation HFA aerosol inhaler 2 puff inhalation Q6H PRN (Reason: shortness of breath or wheezing) amlodipine 5 mg tablet 10 mg PO DAILY fenofibrate micronized 200 mg capsule 145 mg PO DAILY Ozempic 1 mg/dose (4 mg/3 mL) pen injector 1 mg SUBCUT QWEEK Rx Instructions: on Monday hydralazine 25 mg Tablet 25 mg PO TID Qty: 0 0RF losartan 25 mg Tablet 25 mg PO DAILY Qty: 0 0RF oxycodone 5 mg Tablet 5 mg PO Q4H PRN PRN (Reason: Pain Score 6-10) 2 Days Qty: 10 0RF sucralfate 1 gram Tablet 1 g PO 1HR_ACHS Qty: 0 0RF insulin glargine-yfgn 100 unit/mL (3 mL) Insulin Pen 15 unit subcut BID Qty: 0 0RF potassium chloride 20 mEq Tablet,Er Particles/Crystals 20 meq PO BIDCM Qty: 0 0RF furosemide 40 mg tablet 40 mg PO BID Qty: 30 1RF clopidogrel 75 mg tablet 75 mg PO DAILY Qty: 90 3RF ranolazine 500 mg tablet extended release 12 hr 500 mg PO BID Qty: 180 3RF ferrous sulfate 325 mg (65 mg iron) tablet 325 mg PO DAILY Qty: 90 1RF paroxetine HCl 40 mg tablet 40 mg PO DAILY Qty: 30 1RF pantoprazole 40 mg tablet,delayed release (DR/EC) 40 mg PO DAILY Qty: 90 1RF metoprolol succinate 50 mg tablet extended release 24 hr 50 mg PO Q12H Qty: 60 11RF Referrals / Follow Up: Mery Raymond MD [Med Staff - Active Staff] - Hank Negrete MD [Primary Care Provider] - Disposition Disposition (needs filled in before D/C Order can be placed): [facility] Charges/Coding Visit Charges Inpatient E&M: 44840 Disch Hosp >30min
--- NOTE | 2023-09-11 11:37 | TREXTCAR_ITS ---
Diet Diet Order/Speech Therapy: 09/11/23 08:52 Diet: Full Liquid Is pt able to select menu?: Yes Therapies Physical Therapy: Eval and Treat Occupational Therapy: Eval and Treat Problem/Diagnosis (1) Ileus: Status: Acute Code(s): K56.7 - Ileus, unspecified Plan Patient is a 67-year-old gentleman resident at an [facility] admitted with abdominal pain imaging studies demonstrated findings consistent with ileus 1. Abdominal pain Is secondary to ileus ? Patient managed conservatively next 2. Coronary artery disease ? With history of PCI LAD PTCA/DANIEL 2016 and OM1 PCI 10/2021, 3. Paroxysmal A-fib ? C patient was previously treated with apixaban discontinued following GI bleed 4. Hyperparathyroidism with history of hypercalcemia ? Patient is on Cinacalcet 5. Anemia - Secondary to chronic disorder monitoring H&H and transfuse if patient becomes symptomatic or hemoglobin falls below 7 6. Hypertension - Blood pressure controlled, home medications continued with dose adjustment as needed 7. Diabetes mellitus type II -patient's oral hypoglycemics held. Placed on long acting insulin, Accu-Cheks a.c. and at bedtime and covered with sliding scale insulin 8. Chronic kidney disease stage III ? Kidney function at baseline 9. Depression with anxiety ? Patient is on SSRI regimen?Paxil did continue 10. Dyslipidemia ? Patient is on fenofibrate 11. Class II obesity with BMI of 38 point ? Complicating care weight loss advised 12. Obstructive sleep apnea ? On CPAP at night 13. DVT prophylaxis SC heparin Allergies/Procedures Done in Hospital Allergies No Known Allergies Allergy (Verified 09/10/23 17:36) Type of Care/Length of Stay Estimated LOS: Convalescent Care Less Than 30 days Type of Care Needed: Skilled Rehab Potential: Good Prognosis: Good Additional Orders/Day of Discharge Day of Discharge: 09/11/23 Discharge Plan Admission Admit Date/Time: 09/10/23 20:55 Attending Provider: Ryan Coreas Primary Care Provider: Hank Negrete Consulting Providers: Purvi Jensen Discharge Orders/Prescriptions Prescriptions: Continued cinacalcet 30 mg tablet 30 mg PO BID Qty: 60 8RF mineral oil [Fleet Mineral Oil] Enema 118 ml MA DAILY PRN (Reason: constipation) Rx Instructions: discard any unused portion magnesium hydroxide [Milk of Magnesia] 400 mg/5 mL suspension 30 ml PO DAILY PRN (Reason: constipation) bisacodyl 10 mg suppository 10 mg MA DAILY PRN (Reason: constipation) insulin lispro [Humalog U-100 Insulin] 100 unit/mL solution 1 sliding scale dose subcut USEASDIRECTD Rx Instructions: 200-250 5 units 251-300 8 units 301-350 12 units Use IM before meals and at bedtime for DM albuterol sulfate 90 mcg/actuation HFA aerosol inhaler 2 puff inhalation Q6H PRN (Reason: shortness of breath or wheezing) amlodipine 5 mg tablet 10 mg PO DAILY fenofibrate micronized 200 mg capsule 145 mg PO DAILY Ozempic 1 mg/dose (4 mg/3 mL) pen injector 1 mg SUBCUT QWEEK Rx Instructions: on Monday hydralazine 25 mg Tablet 25 mg PO TID Qty: 0 0RF losartan 25 mg Tablet 25 mg PO DAILY Qty: 0 0RF oxycodone 5 mg Tablet 5 mg PO Q4H PRN PRN (Reason: Pain Score 6-10) 2 Days Qty: 10 0RF sucralfate 1 gram Tablet 1 g PO 1HR_ACHS Qty: 0 0RF insulin glargine-yfgn 100 unit/mL (3 mL) Insulin Pen 15 unit subcut BID Qty: 0 0RF potassium chloride 20 mEq Tablet,Er Particles/Crystals 20 meq PO BIDCM Qty: 0 0RF furosemide 40 mg tablet 40 mg PO BID Qty: 30 1RF clopidogrel 75 mg tablet 75 mg PO DAILY Qty: 90 3RF ranolazine 500 mg tablet extended release 12 hr 500 mg PO BID Qty: 180 3RF ferrous sulfate 325 mg (65 mg iron) tablet 325 mg PO DAILY Qty: 90 1RF paroxetine HCl 40 mg tablet 40 mg PO DAILY Qty: 30 1RF pantoprazole 40 mg tablet,delayed release (DR/EC) 40 mg PO DAILY Qty: 90 1RF metoprolol succinate 50 mg tablet extended release 24 hr 50 mg PO Q12H Qty: 60 11RF Referrals / Follow Up: Mery Raymond MD [Med Staff - Active Staff] - Hank Negrete MD [Primary Care Provider] - Disposition Disposition (needs filled in before D/C Order can be placed): [facility]
[2023-09-11 11:41] LABS: Bedside Glucose 142 mg/dL (74-106)
--- NOTE | 2023-09-11 11:59 | PHA.DC_ITS ---
Pharmacy [place] Med Reconciliation Pharmacy Service has performed discharge medication reconciliation for this patient. The patient's discharge medication list was reviewed for discrepancies and discrepancies were resolved. Medications at Discharge Home Medications clopidogrel 75 mg tablet 75 mg PO DAILY BLOOD THINNER #90 tabs 10/03/22 ranolazine 500 mg tablet,extended release,12 hr 500 mg PO BID chest pain #180 tabs 12/20/22 cinacalcet 30 mg tablet 30 mg PO BID hypercalcemia #60 tabs 03/07/23 albuterol sulfate 90 mcg/actuation aerosol inhaler 2 puff inhalation Q6H PRN shortness of breath or wheezing 04/14/23 amlodipine 5 mg tablet 10 mg PO DAILY blood pressure 04/14/23 ferrous sulfate 325 mg (65 mg iron) tablet 325 mg PO DAILY supplement #90 tabs 05/19/23 paroxetine HCl 40 mg tablet 40 mg PO DAILY mood #30 tabs 05/19/23 pantoprazole 40 mg tablet,delayed release 40 mg PO DAILY GI #90 tabs 06/01/23 metoprolol succinate 50 mg tablet,extended release 24 hr 50 mg PO Q12H blood pressure #60 tabs 06/12/23 furosemide 40 mg tablet 40 mg PO BID water pill #30 tabs 07/31/23 hydralazine 25 mg tablet 25 mg PO TID #0 tabs 07/31/23 insulin glargine-yfgn 100 unit/mL (3 mL) subcutaneous pen 15 unit (0.15 mL) subcut BID #0 mL 07/31/23 losartan 25 mg tablet 25 mg PO DAILY #0 tabs 07/31/23 oxycodone 5 mg tablet 5 mg PO Q4H PRN PRN Pain Score 6-10 2 days #10 tabs 07/31/23 potassium chloride 20 mEq tablet,extended release(part/cryst) 20 meq PO BIDCM #0 tabs 07/31/23 sucralfate 1 gram tablet 1 g PO 1HR_ACHS #0 tabs 07/31/23 bisacodyl 10 mg rectal suppository 10 mg SC DAILY PRN constipation 08/08/23 insulin lispro 100 unit/mL subcutaneous solution (Humalog U-100 Insulin) 1 sli ding scale dose subcut USEASDIRECTD 08/08/23 magnesium hydroxide 400 mg/5 mL oral suspension (Milk of Magnesia) 30 ml PO DAILY PRN constipation 08/08/23 mineral oil (Fleet Mineral Oil enema) 118 ml SC DAILY PRN constipation 08/08/23 fenofibrate micronized 200 mg capsule 145 mg PO DAILY 08/11/23 semaglutide 1 mg/dose (4 mg/3 mL) subcutaneous pen injector (Ozempic) 1 mg subcut QWEEK 09/10/23
--- NOTE | 2023-09-11 12:23 | CASEMGMT ---
Social Work- Pt is medically ready for d/c and [facility] willing [facility] accept pt back. DCA advised that pt d/c can be completed. Plan: [facility]
--- NOTE | 2023-09-11 12:42 | CASEMGMT ---
Discharge Planning Discharge orders, signed med list, and transport time sent to [facility] [place]. Physicians will transport patient by wheelchair at 1:30p. Nursing, SW, and patient updated. Patient stated that he would update his family. Jennifer Stringer DC Planning Asst.
== END 2023-09-11 13:30 | disposition home or self-care (01) ==
LOC: ED 20:58 → MS3 22:03
PROVIDERS: Nurse Practitioner; Admitting Provider Family Medicine; Emergency Provider Emergency Medicine; PCP Family Medicine; Visit Provider Internal Medicine
DX: K56.7 Ileus, unspecified (principal); I13.0 Hypertensive heart and chronic kidney disease with heart failure and stage 1 through stage 4 chronic kidney disease, or unspecified chronic kidney disease; I50.32 Chronic diastolic (congestive) heart failure; J44.9 Chronic obstructive pulmonary disease, unspecified; I48.0 Paroxysmal atrial fibrillation; G40.909 Epilepsy, unspecified, not intractable, without status epilepticus; E66.01 Morbid (severe) obesity due to excess calories; E11.22 Type 2 diabetes mellitus with diabetic chronic kidney disease; Z79.4 Long term (current) use of insulin; F41.8 Other specified anxiety disorders; K57.30 Diverticulosis of large intestine without perforation or abscess without bleeding; I25.10 Atherosclerotic heart disease of native coronary artery without angina pectoris; Z68.39 Body mass index [BMI] 39.0-39.9, adult; E78.00 Pure hypercholesterolemia, unspecified; Z79.02 Long term (current) use of antithrombotics/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; Z79.899 Other long term (current) drug therapy; K21.9 Gastro-esophageal reflux disease without esophagitis; Z86.718 Personal history of other venous thrombosis and embolism; Z86.711 Personal history of pulmonary embolism; Z95.0 Presence of cardiac pacemaker; E21.3 Hyperparathyroidism, unspecified; D63.8 Anemia in other chronic diseases classified elsewhere
CPT/HCPCS: 36415; 74177; 76705; 80053; 81001; 82962; 83690; 84484; 85025; 93005; 94668; 96361; 96365; 96366; 96372; 96375; 96376; 99221; 99252; 99283; J7030; Q9967; A4216; G0378; G0463; J2405

== ENCOUNTER 2023-10-12 16:59 | Emergency (ER) | payer MEDICARE, SELFPAY ==
[2023-03-13 16:01] VITALS: BMI 43.3
[2023-10-12 17:03] VITALS: BP 115/78; PULSE 82; RESP 22; TEMP 36.8; O2SAT 98; BMI 37.4
--- NOTE | 2023-10-12 17:38 | EKG12_ITS ---
Test Reason : DYSRHYTHMIA Blood Pressure : / mmHG Vent. Rate : 079 BPM Atrial Rate : 000 BPM P-R Int : 000 ms QRS Dur : 102 ms QT Int : 344 ms P-R-T Axes : 000 008 223 degrees QTc Int : 394 ms Atrial fibrillation with frequent ventricular-paced complexes and with premature ventricular or aberr antly conducted complexes Septal infarct , age undetermined ST & T wave abnormality, consider inferior ischemia ST & T wave abnormality, consider anterolateral ischemia Abnormal ECG Confirmed by BAILEE PIZANO, NII ([id number]), editor continuity and script NAZ NORIEGA ([id number]) on 10/13/2023 9:39:12 AM Referred By: DARIO Confirmed By:NII MOROCHO MD
--- NOTE | 2023-10-12 17:45 | EDS_ITS ---
HPI <ANJEL Schrader - Last Filed: 10/12/23 19:54> History of Present Illness Chief Complaint: Upper Extremity Injury Narrative Narrative: Patient presenting today due to generalized joint pain. He reports that the pain is worse in his left wrist, he denies any injury to the area. He also reports that he has had about a 30 pound weight gain over the past month. He does have a history of CHF and takes Lasix. He is coming from the [place] and had a total of 60 mg of Lasix today. His Lasix dose was recently increased to 40 mg BID with an extra 20 mg dose in the afternoon. He does use supplemental O2 as needed. He has a PMH of CKD, CHF, COPD, HTN, arthritis, and atrial fibrillation. He denies fevers, chills, chest pain, shortness of breath, abdominal pain, nausea, and vomiting. PFSH <ANJEL Schrader - Last Filed: 10/12/23 19:54> [facility] Medical History Pacemaker Obesity Acute hypoxemic respiratory failure Lives in senior care Loss of hearing Tinnitus of both ears Wears glasses Anxiety Pressure ulcer Thyroid disease Uses wheelchair Ambulates with cane Arthritis History of renal disease Hepatitis Pulmonary embolism Back pain Injury of head and neck Hypotension Dietary restriction History of ulceration History of GI bleed History of diverticulitis Non-smoker COPD (chronic obstructive pulmonary disease) Shortness of breath on exertion History of edema History of echocardiogram History of stress test Cardiology follow-up encounter Chest pain Presence of permanent cardiac pacemaker Sick sinus syndrome Alcohol abuse Depression GERD (gastroesophageal reflux disease) BiPAP (biphasic positive airway pressure) dependence Irregular heart beat Congestive heart failure (CHF) Hypertension DVT (deep venous thrombosis) Fall Intermittent chest pain Gastric ulcer GI bleed Heart failure with preserved ejection fraction Atrial fibrillation Olecranon bursitis Debility Dizziness Anxiety and depression Vertigo Shortness of breath Diabetes Asthma Anemia Dark stools Benign essential HTN MEANS (dyspnea on exertion) Osteopenia Primary hyperparathyroidism Chest pain Hyperparathyroidism Seizures Adult failure to thrive Type 2 diabetes mellitus Chronic pain of both knees Vitamin D deficiency Renal insufficiency Fatigue Arthritis Colon cancer screening Health care maintenance Acute midline thoracic back pain Hyperlipidemia Hypercalcemia Secondary pulmonary hypertension Depression Congestive heart failure Chronic wound of head Sciatica Insomnia Pure hypercholesterolemia Atherosclerosis of coronary artery of lime heart without angina pectoris Chronic hypoxemic respiratory failure FAVIAN (obstructive sleep apnea) Dyspnea on exertion History of pulmonary embolism Acquired left ventricular hypertrophy Abnormal chest xray Near syncope Hypoxia Hypertriglyceridemia Morbid obesity with BMI of 40.0-44.9, adult Osteoarthritis History of DVT (deep vein thrombosis) Home Medications ?Medication ?Instructions ?Recorded ?Last Taken ?Type clopidogrel 75 mg tablet 75 mg PO DAILY BLOOD THINNER #90 10/03/22 07/28/23 Rx tabs ranolazine 500 mg tablet,extended 500 mg PO BID chest pain #180 tabs 12/20/22 07/28/23 Rx release,12 hr cinacalcet 30 mg tablet 30 mg PO BID hypercalcemia #60 tabs 03/07/23 07/28/23 Rx albuterol sulfate 90 mcg/actuation 2 puff inhalation Q6H PRN 04/14/23 07/28/23 History aerosol inhaler shortness of breath or wheezing amlodipine 5 mg tablet 10 mg PO DAILY blood pressure 04/14/23 07/28/23 History ferrous sulfate 325 mg (65 mg 325 mg PO DAILY supplement #90 tabs 05/19/23 07/28/23 Rx iron) tablet paroxetine HCl 40 mg tablet 40 mg PO DAILY mood #30 tabs 05/19/23 07/28/23 Rx pantoprazole 40 mg tablet,delayed 40 mg PO DAILY GI #90 tabs 06/01/23 Unknown Rx release metoprolol succinate 50 mg 50 mg PO Q12H blood pressure #60 06/12/23 06/19/23 Rx tablet,extended release 24 hr tabs furosemide 40 mg tablet 40 mg PO BID water pill #30 tabs 07/31/23 07/28/23 Rx hydralazine 25 mg tablet 25 mg PO TID #0 tabs 07/31/23 Unknown Rx insulin glargine-yfgn 100 unit/mL 15 unit (0.15 mL) subcut BID #0 mL 07/31/23 Unknown Rx (3 mL) subcutaneous pen losartan 25 mg tablet 25 mg PO DAILY #0 tabs 07/31/23 Unknown Rx oxycodone 5 mg tablet 5 mg PO Q4H PRN PRN Pain Score 07/31/23 Unknown Rx 6-10 2 days #10 tabs potassium chloride 20 mEq 20 meq PO BIDCM #0 tabs 07/31/23 Unknown Rx tablet,extended release(part/cryst) sucralfate 1 gram tablet 1 g PO 1HR_ACHS #0 tabs 07/31/23 Unknown Rx bisacodyl 10 mg rectal suppository 10 mg RI DAILY PRN constipation 08/08/23 Unknown History insulin lispro 100 unit/mL 1 sliding scale dose subcut 08/08/23 Unknown History subcutaneous solution (Humalog USEASDIRECTD U-100 Insulin) magnesium hydroxide 400 mg/5 mL 30 ml PO DAILY PRN constipation 08/08/23 Unknown History oral suspension (Milk of Magnesia) mineral oil (Fleet Mineral Oil 118 ml RI DAILY PRN constipation 08/08/23 Unknown History enema) fenofibrate micronized 200 mg 145 mg PO DAILY 08/11/23 Unknown History capsule semaglutide 1 mg/dose (4 mg/3 mL) 1 mg subcut QWEEK 09/10/23 Unknown History subcutaneous pen injector (Ozempic) Allergy/AdvReac Type Severity Reaction Status Date / Time No Known Allergies Allergy Verified 09/10/23 17:36 Family History Mother Colon cancer Sister CAD (coronary artery disease) CABG x 5 Diabetes Myocardial infarction, Onset Age: 67 Father Crohns disease Surgical History History of cardiac catheterization History of appendectomy History of eye surgery History of intestinal surgery History of appendectomy History of tonsillectomy and adenoidectomy History of knee surgery History of hip replacement 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 Smoking Status: Never smoker second hand exposure: Yes alcohol intake: former year quit: 2003 details: Sober since 2003. substance use type: former substance user Date of last use: 04/10/2004 and marijuana caffeine: Yes Type: carbonated beverages Number of servings: 2 and coffee Number of servings: 2 what type of physical activity do you participate in: none ROS <ANJEL Schrader - Last Filed: 10/12/23 19:54> ROS ED Constitutional Constitutional ED: Denies chills or fever(s) Cardiovascular Cardiovascular: Denies chest pain Respiratory/Chest Respiratory/Chest: Denies cough or dyspnea Gastrointestinal Gastrointestinal: Denies abdominal pain, nausea or vomiting Musculoskeletal Musculoskeletal: Reports arthralgias Integumentary Denies rash Neurologic Neurologic: Denies paresthesias or weakness EXAM <ANJEL Schrader - Last Filed: 10/12/23 19:54> Physical Exam Const Vital Signs: 10/12/23 17:03 Temperature 98.2 F Temperature Source Oral Pulse Rate 82 Respiratory Rate 22 H Blood Pressure 115/78 Blood Pressure Mean 90 Pulse Ox 98 Oxygen Delivery Method Nasal Cannula Oxygen Flow Rate (L/min) 2 Positive well nourished, well developed and no apparent distress General Appearance ED: well developed HEENT Reports normocephalic and head/scalp atraumatic Mouth ED: Yes moist mucous membranes normal Eyes PERRL and EOMs intact bilaterally Neck full ROM and supple Chest Wall inspection of chest normal Resp normal respiratory effort and clear to auscultation bilaterally Cardio regular rate and regular rhythm GI soft to palpation, non-tender, non-distended and no masses Back/Spine normal ROM and normal to inspection Extremity normal to inspection and full ROM Extremity Narrative: 2+ pitting edema bilateral lower extremities. Pain palpation to the radial aspect of the left wrist, no edema, erythema, or ecchymosis. Full range of motion to the wrist. Left radial pulse 2+, neurovascularly intact. Neuro oriented x3, CN's II-XII intact bilaterally, moves all extremities, no focal motor deficits and no sensory deficits noted Sensorium / Orientation: awake and alert Psych mental status grossly normal and thought process normal Skin no rashes or lesions noted and no wounds MDM <ANJEL Schrader - Last Filed: 10/12/23 19:54> [facility] Narrative Medical decision making narrative: Patient presenting due to generalized joint aching with pain most severe in the left wrist as well as concerns for 30 pound weight gain over the last month. He does have pitting edema to his bilateral lower extremities. His left wrist is tender but there is no abnormality or signs of septic joint. No signs of gout which he does not have a history of. I did speak with the senior care who reports that his diet is poor, he orders large portions of food that contains a lot of sodium. I did discuss dietary changes with him. He was given his evening Lasix dose here. Chest x-ray obtained and shows chronic changes, left wrist x-ray does not show any fracture. His labs appear consistent with his baseline. He was given IV morphine for his pain and reports improvement on reexamination. I do not feel that patient requires admission to the hospital, I spoke with the senior care and they are comfortable monitoring his blood work and having him follow-up with the provider there. He will be discharged back in stable condition. He is comfortable with plan. I have personally performed a face to face assessment of the patient and have reviewed the CHU Note. I performed a substantive portion of the visit including all aspects of the following. My hernandez findings include: History is 67-year-old male history of prior CHF, diabetes, anemia, pacemaker, hypertension and arthritic pain. States that over the last several weeks he has gained about 30 pounds weight he thinks is water weight. Also complaining of atraumatic left wrist pain. No history of gout. No fever or redness. Patient states he has been taking his Lasix daily and have increased it. He is short of breath primarily supine. Exam is [67-year-old male. Vital signs are stable on 2 L he is 98%. H EENT exam unremarkable. Lungs clear to auscultation. Heart irregular irregular rate about 70 no murmur. Abdomen soft nondistended normal bowel sounds no peritoneal signs. Moving all 4 extremities. He has tenderness to his left wrist but no deformity. No redness or warmth. Minimal swelling. 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 Both lower extremities have 2+ pitting edema. Normal dorsi plantarflexion. He is awake alert. Answering questions following commands.] Medical Decision Making [67-year-old male weight gain in spite of Lasix suspect secondary to CHF with increasing peripheral edema. Undergo cardiac workup. Also he is having left wrist pain supposedly atraumatic. It may be arthritis. Clinically does not look like a septic joint. X-ray will be obtained.] Other additions or changes: [Patient's labs are his baseline. He has chronic kidney disease. That is his baseline. He has a chronic anemia. We spoke to his extended care facility. He will follow-up with their medical affairs director or his physician. I will continue him on the Lasix. He having him on oxygen there there is no reason that he really needs to be admitted to hospital. His last echocardiogram an EF of around 55 to 60%.] <Dr. Lamine Rollins MD - Last Filed: 10/12/23 19:13> [facility] Narrative Medical decision making narrative: I have personally performed a face to face assessment of the patient and have reviewed the CHU Note. I performed a substantive portion of the visit including all aspects of the following. My hernandez findings include: History is 67-year-old male history of prior CHF, diabetes, anemia, pacemaker, hypertension and arthritic pain. States that over the last several weeks he has gained about 30 pounds weight he thinks is water weight. Also complaining of atraumatic left wrist pain. No history of gout. No fever or redness. Patient states he has been taking his Lasix daily and have increased it. He is short of breath primarily supine. Exam is [67-year-old male. Vital signs are stable on 2 L he is 98%. H EENT exam unremarkable. Lungs clear to auscultation. Heart irregular irregular rate about 70 no murmur. Abdomen soft nondistended normal bowel sounds no peritoneal signs. Moving all 4 extremities. He has tenderness to his left wrist but no deformity. No redness or warmth. Minimal swelling. 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 Both lower extremities have 2+ pitting edema. Normal dorsi plantarflexion. He is awake alert. Answering questions following commands.] Medical Decision Making [67-year-old male weight gain in spite of Lasix suspect secondary to CHF with increasing peripheral edema. Undergo cardiac workup. Also he is having left wrist pain supposedly atraumatic. It may be arthritis. Clinically does not look like a septic joint. X-ray will be obtained.] Other additions or changes: [Patient's labs are his baseline. He has chronic kidney disease. That is his baseline. He has a chronic anemia. We spoke to his extended care facility. He will follow-up with their medical affairs director or his physician. I will continue him on the Lasix. He having him on oxygen there there is no reason that he really needs to be admitted to hospital. His last echocardiogram an EF of around 55 to 60%.] History & Record Review Discussion w/independent historian: Patient Additional record(s) reviewed:: Prior inpatient record, Prior outpatient record, Prior ED visit and Prior labs Lab Data Attestation: I reviewed the patient's lab results. Radiography Chest X-Ray - ED: 1 View, Read by ED Physician, Heart, Lungs, Mediastinum, Bony Structures, No Acute Disease and Chronic Changes Diagnostic Testing: Chest x-ray, 2 views, AP and lateral interpreted by myself shows chronic changes. Left-sided pacemaker. No significant pulmonary edema. No effusions or infiltrate. Left wrist x-ray 2 views interpreted by myself shows some arthritic changes. No fracture. No dislocation. Rhythm Strip Rhythm Strip: A-fib Rate: 79 Ectopy: PVC(s) EKG Initial EKG: Attestation: I personally reviewed and interpreted this EKG as follows: Interpretation: Atrial Fibrillation Comments: A-fib rate of 79. PVCs. No acute signs of MT or ischemia. Discharge Plan Triage Chief Complaint: Upper Extremity Injury ED Midlevel Provider: Ashleigh Coulter ED Provider: Lamine Rollins Dx/Rx/DC Orders Clinical Impression: Edema, peripheral, History of chronic CHF, Arthritis pain of wrist, Chronic kidney disease, Chronic anemia Instructions: ED Peripheral Edema, Bilateral, ED Osteoarthritis Prescriptions: No Action cinacalcet 30 mg tablet 30 mg PO BID Qty: 60 8RF mineral oil [Fleet Mineral Oil] Enema 118 ml RI DAILY PRN (Reason: constipation) Rx Instructions: discard any unused portion magnesium hydroxide [Milk of Magnesia] 400 mg/5 mL suspension 30 ml PO DAILY PRN (Reason: constipation) bisacodyl 10 mg suppository 10 mg RI DAILY PRN (Reason: constipation) insulin lispro [Humalog U-100 Insulin] 100 unit/mL solution 1 sliding scale dose subcut USEASDIRECTD Rx Instructions: 200-250 5 units 251-300 8 units 301-350 12 units Use IM before meals and at bedtime for DM albuterol sulfate 90 mcg/actuation HFA aerosol inhaler 2 puff inhalation Q6H PRN (Reason: shortness of breath or wheezing) amlodipine 5 mg tablet 10 mg PO DAILY fenofibrate micronized 200 mg capsule 145 mg PO DAILY Ozempic 1 mg/dose (4 mg/3 mL) pen injector 1 mg SUBCUT QWEEK Rx Instructions: on Monday hydralazine 25 mg Tablet 25 mg PO TID Qty: 0 0RF losartan 25 mg Tablet 25 mg PO DAILY Qty: 0 0RF oxycodone 5 mg Tablet 5 mg PO Q4H PRN PRN (Reason: Pain Score 6-10) 2 Days Qty: 10 0RF sucralfate 1 gram Tablet 1 g PO 1HR_ACHS Qty: 0 0RF insulin glargine-yfgn 100 unit/mL (3 mL) Insulin Pen 15 unit subcut BID Qty: 0 0RF potassium chloride 20 mEq Tablet,Er Particles/Crystals 20 meq PO BIDCM Qty: 0 0RF furosemide 40 mg tablet 40 mg PO BID Qty: 30 1RF clopidogrel 75 mg tablet 75 mg PO DAILY Qty: 90 3RF ranolazine 500 mg tablet extended release 12 hr 500 mg PO BID Qty: 180 3RF ferrous sulfate 325 mg (65 mg iron) tablet 325 mg PO DAILY Qty: 90 1RF paroxetine HCl 40 mg tablet 40 mg PO DAILY Qty: 30 1RF pantoprazole 40 mg tablet,delayed release (DR/EC) 40 mg PO DAILY Qty: 90 1RF metoprolol succinate 50 mg tablet extended release 24 hr 50 mg PO Q12H Qty: 60 11RF Primary Care Provider: Hank Negrete Referrals: Hank Negrete MD [Primary Care Provider] - As soon as possible Activity Restrictions/Additional Instructions: Labs and x-rays were his baseline. Continue his Lasix for his edema. Follow-up with his primary care physician Dr. Hank Negrete. Print Language: Emirati Disposition Disposition: Home, Self Care
[2023-10-12 18:23] LABS: Absolute Lymphocyte Count 0.37 X10^3/uL (0.83-4.51); Absolute Neutrophil Count 7.1 X10^3/uL (2.0-7.7); Basophil# 0.03 X10^3/uL; Basophil% 0.3 % (0-1); Eosinophil# 0.08 X10^3/uL; Eosinophils% 0.9 % (0-5); Hemoglobin 9.9 g/dL (13.0-16.5); Lymphocyte # 0.37 X10^3/ul (0.83-4.51); Lymphocyte % 4.1 % (19-41); Mean Corpuscular Hgb 25.8 pg (27.0-32.0); Mean Corpuscular Volume 86.2 fL (80-94); Monocyte# 1.27 X10^3/uL; Monocyte% 14.2 % (0-10); NRBC Flagged by Analyzer 0 % (0-5); Neutrophil # 7.13 X10^3/uL (2.7-7.7); Neutrophil % 79.7 % (47-70); POSITIVE DIFFERENTIAL YES; Platelet Count 283 K/mm3 (150-450); RBC Distribution Width CV 16.4 % (11.6-14.6); RBC Distribution Width SD 50.7 fl (35.1-43.9); Red Blood Count 3.83 M/mm3 (4.6-6.2)
[2023-10-12] MEDS: Ondansetron 4 MG/2 ML Vial IV (18:26)
[2023-10-12] MEDS: morphine 8 MG/ML Syringe 6 MG IV (18:26)
[2023-10-12 18:35] LABS: Anion Gap 8 (5-15); BUN 38 mg/dL (7-18); BUN/Creat Ratio 19.3 RATIO (10-20); Calcium,Total 9.8 mg/dL (8.5-10.1); Chloride 105 mmol/L (98-107); Creatinine, Serum 1.97 mg/dL (0.70-1.30); EST Glomerular Filtration Rate 36 mL/min (>60); Est Glom Filt Rate - Afr Amer 44 mL/min (>60); Estimated Creatinine Clearance 47.56 ml/min; Glucose 239 mg/dL (74-106); Potassium 3.6 mmol/L (3.5-5.1); Sodium Level 138 mmol/L (136-145); Troponin-I HS 21 pg/mL (3.0-78.0)
--- NOTE | 2023-10-12 18:55 | RAD_ITS ---
INDICATION: SOB EXAMINATION/TECHNIQUE: X-RAY - XR Chest 2 Views COMPARISON: 08/11/2023 FINDINGS: LIFE-SUPPORT AND LINES: 1. Transvenous pacer leads without change. HEART AND VESSELS: Cardiac silhouette is unchanged. No evidence congestive failure. LUNGS AND PLEURAL SPACES: Perihilar interstitial thickening particularly in the LEFT perihilar and suprahilar region and the RIGHT infrahilar region. No pulmonary mass is noted. MEDIASTINUM AND HILAR REGIONS: No masses adenopathy noted. No areas of calcification. Visualized upper airway is normal in position. BONY ELEMENTS: No acute bony changes noted. RAD/Chest PA and Lateral IMPRESSION: 1. Transvenous pacer lead are without change. 2. No evidence congestive failure. 3. Interstitial prominence/infiltrate in the perihilar and suprahilar region on the LEFT and infrahilar region on the RIGHT. Electronically Signed: Miquel Gillis MD at 19:19 EDT ,
--- NOTE | 2023-10-12 18:55 | RAD_ITS ---
INDICATION: wrist pain EXAMINATION/TECHNIQUE: X-RAY - LEFT XR Wrist 2 Views 2 VIEWS COMPARISON: No relevant prior comparison study available FINDINGS: SOFT TISSUES: No soft tissue swelling or gas. No radiopaque foreign body. BONES/JOINTS: No acute fracture or subluxation.. Normal alignment. Preservation of the joint space.. No sclerotic or destructive changes observed. Mild osteophyte formation involving the carpal rows. RAD/Wrist 2 Views IMPRESSION: 1. No evidence fracture, malalignment or focal bony or joint space abnormality. Mild osteophyte formation noted. Electronically Signed: Miquel Gillis MD at 19:17 EDT ,
[2023-10-12 19:16] VITALS: BP 140/70; PULSE 80; RESP 17; O2SAT 98
[2023-10-12] MEDS: Furosemide 40 MG/4 ML Vial IV (19:28)
[2023-10-12] MEDS: HYDROcodone Bitartrate/Apap 5/325 Tablet PO (19:28)
[2023-10-12 19:32] VITALS: BP 140/70; PULSE 72; RESP 20; TEMP 37.2; O2SAT 96
--- NOTE | 2023-10-12 19:36 | ED.RN ---
Pt does not have oxygen tank with him. Pt came in by squad. This RN attempted to have the patient stand and pivot, patient was out of breath (respirations 30) and feeling dizzy. Patient does not have wheelchair or walker with him at bedside.
== END 2023-10-12 20:39 | disposition home or self-care (01) ==
PROVIDERS: Physician Assistant; Emergency Provider Emergency Medicine; PCP Family Medicine; Visit Provider Emergency Medicine
DX: M19.031 Primary osteoarthritis, right wrist (principal); I13.0 Hypertensive heart and chronic kidney disease with heart failure and stage 1 through stage 4 chronic kidney disease, or unspecified chronic kidney disease; I50.9 Heart failure, unspecified; J44.9 Chronic obstructive pulmonary disease, unspecified; I48.91 Unspecified atrial fibrillation; E11.22 Type 2 diabetes mellitus with diabetic chronic kidney disease; I25.10 Atherosclerotic heart disease of native coronary artery without angina pectoris; N18.9 Chronic kidney disease, unspecified; E78.00 Pure hypercholesterolemia, unspecified; D64.9 Anemia, unspecified; M25.50 Pain in unspecified joint; Z79.899 Other long term (current) drug therapy; Z95.0 Presence of cardiac pacemaker; R60.9 Edema, unspecified
CPT/HCPCS: 71046; 73100; 80048; 84484; 85025; 93005; 96374; 96375; 99284; A4216; J1940; J2405

== ENCOUNTER 2023-10-25 05:24 | Emergency (ER) | payer MEDICARE, SELFPAY ==
[2023-03-13 16:01] VITALS: BMI 43.3
[2023-10-25 05:25] VITALS: BP 146/85; PULSE 89; RESP 22; TEMP 35.7; O2SAT 89
[2023-10-25 05:29] VITALS: BMI 84.7
[2023-10-25 05:31] VITALS: O2SAT 95
--- NOTE | 2023-10-25 05:45 | RAD_ITS ---
EXAM: XR RIGHT RIBS AND AP CHEST, 3 OR MORE VIEWS CLINICAL INDICATION: pain TECHNIQUE: Frontal and oblique views of the right ribs and frontal view of the chest. COMPARISON: Chest radiographs of 10/12/2023. Bilateral shoulder radiographs of this date. FINDINGS: LUNGS AND PLEURAL SPACES: Low lung volumes. There has been interval development of asymmetric patchy airspace disease in the right upper lobe. There is associated thickening of the minor fissure indicating minimal intrafissural pleural fluid.. There is questionable developing airspace disease in the left infrahilar region. No pneumothorax. HEART: Heart size is upper normal. Supine patient positioning accentuates the upper lobe pulmonary vasculature. MEDIASTINUM: Stable elongation of the thoracic aorta. Trachea is midline. BONES/JOINTS: The anterior right eighth rib shows slight cortical discontinuity indicating nondisplaced acute fracture. There is a possible nondisplaced fracture of the anterior right ninth rib. No displaced rib fracture. TUBES, LINES AND DEVICES: Cardiac pacemaker remains in place. RAD/Ribs Uni Min 3V w/PA Chest IMPRESSION: Nondisplaced acute fracture of the anterior right eighth rib with possible nondisplaced fracture of the anterior right ninth rib. Asymmetric right upper lobe airspace disease, suspicious for pneumonia. Pulmonary contusion felt less likely as this infiltrate does not lie in the area of the right rib fracture. No pneumothorax. Electronically Signed: Rico Garrett MD at 8:02 EDT ,
--- NOTE | 2023-10-25 05:45 | CT_ITS ---
EXAM: CT HEAD WITHOUT INTRAVENOUS CONTRAST CLINICAL INDICATION: head injury TECHNIQUE: Multiple axial images were obtained of the head without intravenous contrast. This CT exam was performed using one or more of the following dose reduction techniques: automated exposure control, adjustment of the mA and/or kV according to patient size, and/or use of iterative reconstruction technique. RADIATION DOSE: Total DLP: 829.85 mGy-cm. COMPARISON: Previous cranial CT of 04/26/2023. FINDINGS: BRAIN AND EXTRA-AXIAL SPACES: Findings of mild/moderate atrophy present with prominence of the cortical sulci, basal cisterns, sylvian fissures and ventricles. No intra- or extra-axial hemorrhage. No evidence of acute infarct. No intracranial mass or mass effect. There is preservation of the preston/white matter interface. Posterior fossa structures are unremarkable. Ventricles are appropriate for age. Basal cisterns are patent. BONES/JOINTS: Unremarkable. No discrete lytic or blastic abnormalities. No linear or depressed skull fracture. SOFT TISSUES: Soft tissue swelling and small scalp hematoma noted overlying the inferior right frontal bone. VASCULATURE: Atherosclerotic vascular calcification is present. The middle cerebral arteries are not hyperdense. SINUSES: Findings of previous sinus surgery. Posterior nasal septum is partially absent. Mild mucosal thickening noted at the base of the right maxillary antrum and there is minimal mucosal thickening within the left maxillary antrum, unchanged. No paranasal sinus air-fluid levels. MASTOID AIR CELLS: Unremarkable. Clear. ORBITS: Visualized globes, extraocular muscles, optic nerves and retrobulbar fat appear unremarkable. DENTAL: Findings of periodontal disease are present. CT/Brain/Head without Contrast IMPRESSION: 1. Right frontal scalp hematoma. 2. No skull fracture or acute intracranial hemorrhage. Electronically Signed: Rico Garrett MD at 7:50 EDT ,
--- NOTE | 2023-10-25 05:45 | CT_ITS ---
EXAM: CT CERVICAL SPINE WITHOUT INTRAVENOUS CONTRAST CLINICAL INDICATION: INJURY TECHNIQUE: Helically acquired images were obtained of the cervical spine without intravenous contrast. 2D reformatted images were reviewed. This CT exam was performed using one or more of the following dose reduction techniques: automated exposure control, adjustment of the mA and/or kV according to patient size, and/or use of iterative reconstruction technique. RADIATION DOSE: Total DLP: 601.30 mGy-cm. COMPARISON: Cervical radiographs of 06/23/2021. FINDINGS: LIMITATIONS: Motion artifact. VERTEBRAE: Mild reversal of the normal cervical lordosis. Slight degenerative anterior subluxation of C3 on C4. No compression fracture, posterior element fracture or facet dislocation. The odontoid is intact. Cervical facet arthritis is present including erosive facet arthritis on the left at C3/4. DISCS/SPINAL CANAL/NEURAL FORAMINA: C4/5, C5/6 and C6/7 disc spaces show severe degenerative narrowing with endplate sclerosis and marginal osteophytes. Multilevel neural foraminal encroachment is present due to facet hypertrophy, greatest on the left at the C4/5 level. Annular bulges and posterior osteophytes cause [id number] flattening of the ventral aspect of the thecal sac at the degenerated levels. No critical thecal sac stenosis. SOFT TISSUES: Unremarkable. No prevertebral soft tissue swelling. LUNG APICES: No apical pneumothorax. Visualized upper ribs are intact. TUBES, LINES AND DEVICES: Cardiac pacemaker leads are partially visualized. CT/Spine Cervical without Contras IMPRESSION: Reversal of the cervical lordosis due to patient positioning or muscle spasm. Extensive cervical degenerative changes. No acute fracture. Electronically Signed: Rico Garrett MD at 7:54 EDT ,
--- NOTE | 2023-10-25 05:45 | RAD_ITS ---
EXAM: XR RIGHT HIP WITH PELVIS WHEN PERFORMED, 2 OR 3 VIEWS CLINICAL INDICATION: pain TECHNIQUE: Two or three views of the right hip with pelvis when performed. COMPARISON: CT of 09/10/2023. FINDINGS: BONES/JOINTS: Bilateral hip arthroplasties remain in place, in satisfactory position. No acute fracture or dislocation is identified. Pubic symphysis and SI joints are not abnormally widened. Right pubic rami show no acute fracture. No destructive or sclerotic lesions. Note that overlapping bowel shadows may however obscure fine detail. SOFT TISSUES: Prostate calcification is incidentally noted. There are chronic corticated calcifications about the proximal right femur secondary to prior trauma and/or surgery; these are unchanged as compared to the previous CT. No soft tissue swelling or gas. RAD/HIP, UNI W/ Pelvis 2-3 Views IMPRESSION: Bilateral hip arthroplasties in place. No acute fracture or dislocation. Electronically Signed: Rico Garrett MD at 7:39 EDT ,
--- NOTE | 2023-10-25 05:45 | RAD_ITS ---
EXAM: XR RIGHT SHOULDER COMPLETE, 2 OR MORE VIEWS CLINICAL INDICATION: pain TECHNIQUE: Two or more views of the right shoulder. COMPARISON: Right shoulder radiographs of 04/26/2023. Chest radiograph of 10/12/2023. FINDINGS: BONES/JOINTS: There are severe degenerative narrowing of the right glenohumeral joint space with subchondral sclerosis and marginal osteophytes. Mild degenerative spurring noted about the right AC joint. No acute fracture. No subluxation. No dislocation. SOFT TISSUES: Unremarkable. No soft tissue swelling or gas. No radiopaque foreign body. LUNGS AND PLEURAL SPACES: Visualized right upper ribs are intact. Patchy airspace disease is noted within the right upper lobe. There is slight thickening of the minor fissure. No right-sided pneumothorax. RAD/Shoulder min 2 Views IMPRESSION: 1. Degenerative osteoarthritis of the right shoulder. 2. No acute fracture, dislocation or AC joint widening. 3. Right upper lobe airspace disease, suspicious for pneumonia. Electronically Signed: Rico Garrett MD at 7:45 EDT ,
--- NOTE | 2023-10-25 05:45 | RAD_ITS ---
EXAM: XR LEFT SHOULDER COMPLETE, 2 OR MORE VIEWS CLINICAL INDICATION: PAIN TECHNIQUE: Two or more views of the left shoulder. COMPARISON: Left shoulder radiographs of 06/23/2021. FINDINGS: BONES/JOINTS: There is severe degenerative narrowing of the left glenohumeral joint space with subchondral sclerosis, subchondral cyst formation and marginal osteophytes. Medial aspect of the left humeral head is flattened. The visualized left upper ribs are intact. The visualized left upper lung is clear. Extensive cervical degenerative disc disease and facet arthritis are present. No acute fracture, dislocation or AC joint widening. SOFT TISSUES: Unremarkable. No soft tissue swelling or gas. No radiopaque foreign body. TUBES, LINES AND DEVICES: Cardiac pacemaker now in place with the generator partially overlying the left scapula. RAD/Shoulder min 2 Views IMPRESSION: Degenerative osteoarthritis of the left glenohumeral joint. No acute fracture or dislocation. Electronically Signed: Rico Garrett MD at 7:42 EDT ,
--- NOTE | 2023-10-25 05:48 | EX.ED.DYSGE1 ---
HPI History of Present Illness Chief Complaint: Fall Informant: patient and EMS Narrative Narrative: Patient is a 67-year-old male with past medical history of hypertension congestive heart failure and sick sinus syndrome status post pacemaker placement as well as type 2 diabetes. He states he is on Plavix. He to be gets around with a walker and has a lift chair. He states that he believes he was sleeping and rolled over onto the remote of the lift chair. His weight activated the button which caused the chair to change positions and he fell striking the floor. He states when he hit the floor he woke up and was able to call for help and was only on the ground for approximately 30 minutes. He notes he has a headache with laceration to his forehead and also reports pain in his bilateral shoulders and right hip. With concern for underlying trauma he was brought in for evaluation. [facility] Medical History Pacemaker Obesity Acute hypoxemic respiratory failure Lives in assisted Loss of hearing Tinnitus of both ears Wears glasses Anxiety Pressure ulcer Thyroid disease Uses wheelchair Ambulates with cane Arthritis History of renal disease Hepatitis Pulmonary embolism Back pain Injury of head and neck Hypotension Dietary restriction History of ulceration History of GI bleed History of diverticulitis Non-smoker COPD (chronic obstructive pulmonary disease) Shortness of breath on exertion History of edema History of echocardiogram History of stress test Cardiology follow-up encounter Chest pain Presence of permanent cardiac pacemaker Sick sinus syndrome Alcohol abuse Depression GERD (gastroesophageal reflux disease) BiPAP (biphasic positive airway pressure) dependence Irregular heart beat Congestive heart failure (CHF) Hypertension DVT (deep venous thrombosis) Fall Intermittent chest pain Gastric ulcer GI bleed Heart failure with preserved ejection fraction Atrial fibrillation Olecranon bursitis Debility Dizziness Anxiety and depression Vertigo Shortness of breath Diabetes Asthma Anemia Dark stools Benign essential HTN MEANS (dyspnea on exertion) Osteopenia Primary hyperparathyroidism Chest pain Hyperparathyroidism Seizures Adult failure to thrive Type 2 diabetes mellitus Chronic pain of both knees Vitamin D deficiency Renal insufficiency Fatigue Arthritis Colon cancer screening Health care maintenance Acute midline thoracic back pain Hyperlipidemia Hypercalcemia Secondary pulmonary hypertension Depression Congestive heart failure Chronic wound of head Sciatica Insomnia Pure hypercholesterolemia Atherosclerosis of coronary artery of [place] heart without angina pectoris Chronic hypoxemic respiratory failure FAVIAN (obstructive sleep apnea) Dyspnea on exertion History of pulmonary embolism Acquired left ventricular hypertrophy Abnormal chest xray Near syncope Hypoxia Hypertriglyceridemia Morbid obesity with BMI of 40.0-44.9, adult Osteoarthritis History of DVT (deep vein thrombosis) Home Medications ?Medication ?Instructions ?Recorded ?Last Taken ?Type clopidogrel 75 mg tablet 75 mg PO DAILY BLOOD THINNER #90 10/03/22 07/28/23 Rx tabs ranolazine 500 mg tablet,extended 500 mg PO BID chest pain #180 tabs 12/20/22 07/28/23 Rx release,12 hr cinacalcet 30 mg tablet 30 mg PO BID hypercalcemia #60 tabs 03/07/23 07/28/23 Rx albuterol sulfate 90 mcg/actuation 2 puff inhalation Q6H PRN 04/14/23 07/28/23 History aerosol inhaler shortness of breath or wheezing amlodipine 5 mg tablet 10 mg PO DAILY blood pressure 04/14/23 07/28/23 History ferrous sulfate 325 mg (65 mg 325 mg PO DAILY supplement #90 tabs 05/19/23 07/28/23 Rx iron) tablet paroxetine HCl 40 mg tablet 40 mg PO DAILY mood #30 tabs 05/19/23 07/28/23 Rx pantoprazole 40 mg tablet,delayed 40 mg PO DAILY GI #90 tabs 06/01/23 Unknown Rx release metoprolol succinate 50 mg 50 mg PO Q12H blood pressure #60 06/12/23 06/19/23 Rx tablet,extended release 24 hr tabs furosemide 40 mg tablet 40 mg PO BID water pill #30 tabs 07/31/23 07/28/23 Rx hydralazine 25 mg tablet 25 mg PO TID #0 tabs 07/31/23 Unknown Rx insulin glargine-yfgn 100 unit/mL 15 unit (0.15 mL) subcut BID #0 mL 07/31/23 Unknown Rx (3 mL) subcutaneous pen losartan 25 mg tablet 25 mg PO DAILY #0 tabs 07/31/23 Unknown Rx oxycodone 5 mg tablet 5 mg PO Q4H PRN PRN Pain Score 07/31/23 Unknown Rx 6-10 2 days #10 tabs potassium chloride 20 mEq 20 meq PO BIDCM #0 tabs 07/31/23 Unknown Rx tablet,extended release(part/cryst) sucralfate 1 gram tablet 1 g PO 1HR_ACHS #0 tabs 07/31/23 Unknown Rx bisacodyl 10 mg rectal suppository 10 mg VA DAILY PRN constipation 08/08/23 Unknown History insulin lispro 100 unit/mL 1 sliding scale dose subcut 08/08/23 Unknown History subcutaneous solution (Humalog USEASDIRECTD U-100 Insulin) magnesium hydroxide 400 mg/5 mL 30 ml PO DAILY PRN constipation 08/08/23 Unknown History oral suspension (Milk of Magnesia) mineral oil (Fleet Mineral Oil 118 ml VA DAILY PRN constipation 08/08/23 Unknown History enema) fenofibrate micronized 200 mg 145 mg PO DAILY 08/11/23 Unknown History capsule semaglutide 1 mg/dose (4 mg/3 mL) 1 mg subcut QWEEK 09/10/23 Unknown History subcutaneous pen injector (Ozempic) Allergy/AdvReac Type Severity Reaction Status Date / Time No Known Allergies Allergy Verified 09/10/23 17:36 Family History Mother Colon cancer Sister CAD (coronary artery disease) CABG x 5 Diabetes Myocardial infarction, Onset Age: 67 Father Crohns disease Surgical History History of cardiac catheterization History of appendectomy History of eye surgery History of intestinal surgery History of appendectomy History of tonsillectomy and adenoidectomy History of knee surgery History of hip replacement 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) History of coronary artery stent placement (10/21/22) Social History household members: none housing: apartment current occupational status: retired pets and animals: No other: Hx working in [employer] and [employer]. Smoking Status: Never smoker second hand exposure: Yes alcohol intake: former year quit: 2003 details: Sober since 2003. substance use type: former substance user Date of last use: 04/10/2004 and marijuana caffeine: Yes Type: carbonated beverages Number of servings: 2 and coffee Number of servings: 2 what type of physical activity do you participate in: none ROS ROS ED Constitutional Constitutional ED: Denies chills or fever(s) Eyes Eyes: Denies blurry vision or change in vision ENT ENT ED: Denies sore throat Cardiovascular Cardiovascular: Denies chest pain Respiratory/Chest Respiratory/Chest: Denies cough or dyspnea Gastrointestinal Gastrointestinal: Denies abdominal pain, diarrhea, nausea or vomiting Genitourinary Genitourinary ED: Denies dysuria Musculoskeletal Musculoskeletal: Reports other Details: Positive bilateral shoulder pain Positive right hip ; Denies back pain or neck pain Integumentary Reports Abrasions Neurologic Neurologic: Reports headache(s) Psychiatric Psychiatric: Reports anxiety Hematologic/Lymphatic Hematologic/Lymphatic: Reports easy bleeding and easy bruising EXAM Physical Exam Const Vital Signs: 10/25/23 05:25 10/25/23 05:31 10/25/23 07:24 Temperature 96.2 F L Temperature Source Temporal Pulse Rate 89 71 Respiratory Rate 22 H 16 Respiratory Effort Normal Respiratory Depth Normal Respiratory Pattern Normal Blood Pressure 146/85 H 129/70 H Blood Pressure Mean 105 89 Pulse Ox 89 95 98 Oxygen Delivery Method Room Air Nasal Cannula Room Air Oxygen Flow Rate (L/min) 2 Positive well nourished, well developed and obese General Appearance ED: well developed Nutritional Appearance: obese HEENT HEENT Narrative: Patient has a 2 x 3 cm hematoma to the mid/right portion of the forehead/frontal bone. In the center of this is a jagged 1 cm dermal layer deep abrasion with minimal ooze of blood and no retained foreign body No septal hematoma noted No signs of depressed or basilar skull fracture Eyes PERRL and EOMs intact bilaterally Eyes Narrative: No hyphema noted Neck supple Neck Narrative: No bony deformity or step-off of the cervical spine no midline tenderness to palpation Patient does have diffuse paracervical tenderness Chest Wall Chest Narrative: No bony deformity or crepitance of the chest wall but there is pain on palpation along the anterior lateral rib regions 8-12 Resp Resp Narrative: Breath sounds are diminished throughout with crackles in bilateral bases consistent with history of CHF Otherwise no nasal flaring retractions tachypnea or accessory muscle use Cardio regular rate and regular rhythm GI normal to inspection, nondistended, normoactive bowel sounds, non-tender, non-distended and no masses GI Narrative: Abdomen is obese soft nontender nondistended with normal active bowel sounds. No voluntary guarding or rigidity. No pulsatile mass or fluid wave No overlying abrasions or ecchymosis Auscultation: normoactive bowel sounds Palpation: soft Back/Spine Back/Spine Narrative: No bony deformity or step-off of the thoracic or lumbar spine no midline tenderness to palpation Extremity Extremity Narrative: Pelvis is stable there is no shortening or external rotation of either lower extremity There is pain on palpation of the right hip over top the greater trochanter without obvious bony deformity or joint effusion There is +3-4 pitting edema to the bilateral lower extremities that are equal and symmetric Neuro oriented x3 and CN's II-XII intact bilaterally Sensorium / Orientation: alert Psych mental status grossly normal Skin Skin Narrative: Hematoma with abrasion to the forehead as documented above MDM MDM MDM Narrative Medical decision making narrative: Patient arrived to the ER with GCS of 15 and no focal neurologic deficit. He reported he was in his chair and then wound up on the floor and this is most likely due to the fact that he sat on his remote causing the chair to tilt while he was sleeping and he fell to the ground. The fact that he fell while sleeping in his chair is consistent with the fact there are no defensive wounds. As patient struck his head and is on Plavix there is concern for skull fracture versus traumatic subdural or epidural hematoma as well as potential cervical compression fracture or spondylolisthesis. Secondary to this imaging studies were obtained which revealed no underlying brain bleed skull fracture or cervical spine injury. Patient also reported pain to bilateral shoulders as well as right hip and there is concern for shoulder fracture versus dislocation versus hip fracture versus prosthetic joint malfunction/dislocation. He also had right rib pain and there is concern for rib fracture versus pneumothorax. Multiple x-rays were obtained and revealed no underlying signs of trauma or hardware derangement to the extremities or pelvis. The rib series however did show a right eighth and potentially right ninth rib fracture. This does correlate with his location of pain. However he does not have an obvious pneumothorax or hemothorax. The radiologist does question a right upper lobe pneumonia but he does not have a fever he is not coughing and he is only present in the ER because he fell out of his lift chair and therefore this does not clinically correlate and I do not feel there is need for antibiotics. The patient has oxygen at the assisted and therefore I do not feel there is need to keep him in the hospital for 1-2 rib fractures with no pneumothorax. Therefore at this time with workup revealing no signs of underlying trauma other than the right eighth and potential ninth fracture of the ribs but known hemothorax or pneumothorax and the fact that the abrasion to his forehead does not require closure there is no need for sutures he is otherwise safe to return to the assisted and continue his normal medication History & Record Review Discussion w/independent historian: EMS personnel and Patient Radiography Diagnostic Testing: Clinical Impression(s) from Imaging Studies Brain CT 10/25/23 05:45 IMPRESSION: 1. Right frontal scalp hematoma. 2. No skull fracture or acute intracranial hemorrhage. Electronically Signed: Rico Garrett MD at 7:50 EDT , Cervical Spine CT 10/25/23 05:45 IMPRESSION: Reversal of the cervical lordosis due to patient positioning or muscle spasm. Extensive cervical degenerative changes. No acute fracture. Electronically Signed: Rico Garrett MD at 7:54 EDT , Hip/Pelvis X-Ray 10/25/23 05:45 IMPRESSION: Bilateral hip arthroplasties in place. No acute fracture or dislocation. Electronically Signed: Rico Garrett MD at 7:39 EDT , Ribs w/Chest X-Ray 10/25/23 05:45 IMPRESSION: Nondisplaced acute fracture of the anterior right eighth rib with possible nondisplaced fracture of the anterior right ninth rib. Asymmetric right upper lobe airspace disease, suspicious for pneumonia. Pulmonary contusion felt less likely as this infiltrate does not lie in the area of the right rib fracture. No pneumothorax. Electronically Signed: Rico Garrett MD at 8:02 EDT , Shoulder X-Ray 10/25/23 05:45 IMPRESSION: 1. Degenerative osteoarthritis of the right shoulder. 2. No acute fracture, dislocation or AC joint widening. 3. Right upper lobe airspace disease, suspicious for pneumonia. Electronically Signed: Rico Garrett MD at 7:45 EDT , Shoulder X-Ray 10/25/23 05:45 IMPRESSION: Degenerative osteoarthritis of the left glenohumeral joint. No acute fracture or dislocation. Electronically Signed: Rico Garrett MD at 7:42 EDT , Bilateral shoulder x-ray as interpreted by the emergency medicine physician reveals degenerative/arthritic changes but no acute fracture dislocation or joint effusion Right hip x-ray with 1 view pelvis as interpreted by the emergency medicine physician reveals degenerative changes without acute fracture or dislocation Right rib series with 1 view chest as interpreted by the emergency medicine physician reveals no acute rib fracture or pneumothorax but there is bilateral pulmonary edema present roughly similar to October 11 of this year consistent with CHF Discharge Plan Triage Chief Complaint: Fall ED Provider: Marco Lara Dx/Rx/DC Orders Clinical Impression: Closed head injury, Traumatic hematoma of forehead, Abrasion of face, Contusion of multiple sites, CHF (congestive heart failure), Essential hypertension, Sick sinus syndrome, Presence of permanent cardiac pacemaker, Closed rib fracture Instructions: Bruises (Contusions), ED Head Injury (Adult), ED Hematoma Prescriptions: No Action cinacalcet 30 mg tablet 30 mg PO BID Qty: 60 8RF mineral oil [Fleet Mineral Oil] Enema 118 ml VA DAILY PRN (Reason: constipation) Rx Instructions: discard any unused portion magnesium hydroxide [Milk of Magnesia] 400 mg/5 mL suspension 30 ml PO DAILY PRN (Reason: constipation) bisacodyl 10 mg suppository 10 mg VA DAILY PRN (Reason: constipation) insulin lispro [Humalog U-100 Insulin] 100 unit/mL solution 1 sliding scale dose subcut USEASDIRECTD Rx Instructions: 200-250 5 units 251-300 8 units 301-350 12 units Use IM before meals and at bedtime for DM albuterol sulfate 90 mcg/actuation HFA aerosol inhaler 2 puff inhalation Q6H PRN (Reason: shortness of breath or wheezing) amlodipine 5 mg tablet 10 mg PO DAILY fenofibrate micronized 200 mg capsule 145 mg PO DAILY Ozempic 1 mg/dose (4 mg/3 mL) pen injector 1 mg SUBCUT QWEEK Rx Instructions: on Monday hydralazine 25 mg Tablet 25 mg PO TID Qty: 0 0RF losartan 25 mg Tablet 25 mg PO DAILY Qty: 0 0RF oxycodone 5 mg Tablet 5 mg PO Q4H PRN PRN (Reason: Pain Score 6-10) 2 Days Qty: 10 0RF sucralfate 1 gram Tablet 1 g PO 1HR_ACHS Qty: 0 0RF insulin glargine-yfgn 100 unit/mL (3 mL) Insulin Pen 15 unit subcut BID Qty: 0 0RF potassium chloride 20 mEq Tablet,Er Particles/Crystals 20 meq PO BIDCM Qty: 0 0RF furosemide 40 mg tablet 40 mg PO BID Qty: 30 1RF clopidogrel 75 mg tablet 75 mg PO DAILY Qty: 90 3RF ranolazine 500 mg tablet extended release 12 hr 500 mg PO BID Qty: 180 3RF ferrous sulfate 325 mg (65 mg iron) tablet 325 mg PO DAILY Qty: 90 1RF paroxetine HCl 40 mg tablet 40 mg PO DAILY Qty: 30 1RF pantoprazole 40 mg tablet,delayed release (DR/EC) 40 mg PO DAILY Qty: 90 1RF metoprolol succinate 50 mg tablet extended release 24 hr 50 mg PO Q12H Qty: 60 11RF Primary Care Provider: Hank Negrete Referrals: Hnak Negrete MD [Primary Care Provider] - Activity Restrictions/Additional Instructions: Your images showed a right eighth and potentially a right ninth rib fracture. You will not be taking deep breaths secondary to the pain from this. Wear your oxygen to help keep your oxygen saturations greater than 90% and use the incentive spirometer as directed to make sure you are taking deep breaths in. Continue your oxycodone for pain control and return to the ER should you have any further concerns or worsening of symptoms. Print Language: Ethiopian Disposition Disposition: Home, Self Care
[2023-10-25] MEDS: Ondansetron ODT 4 MG Tablet PO (05:53)
[2023-10-25] MEDS: Morphine 4 MG/ML Syringe 8 MG IM (05:54)
[2023-10-25 07:24] VITALS: BP 129/70; PULSE 71; RESP 16; O2SAT 98
[2023-10-25 08:53] VITALS: BP 105/68; PULSE 73; RESP 16; TEMP 36.3; O2SAT 95
[2023-10-25 09:00] VITALS: BP 143/77; PULSE 74; RESP 16; O2SAT 95
== END 2023-10-25 09:47 | disposition home or self-care (01) ==
PROVIDERS: Emergency Provider Emergency Medicine; PCP Family Medicine; Visit Provider Emergency Medicine
DX: S01.81XA Laceration without foreign body of other part of head, initial encounter (principal); I11.0 Hypertensive heart disease with heart failure; I50.9 Heart failure, unspecified; J44.9 Chronic obstructive pulmonary disease, unspecified; I49.5 Sick sinus syndrome; E11.9 Type 2 diabetes mellitus without complications; E78.00 Pure hypercholesterolemia, unspecified; Z95.0 Presence of cardiac pacemaker; I25.10 Atherosclerotic heart disease of native coronary artery without angina pectoris; Z79.02 Long term (current) use of antithrombotics/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; K21.9 Gastro-esophageal reflux disease without esophagitis; R51.9 Headache, unspecified; S22.41XA Multiple fractures of ribs, right side, initial encounter for closed fracture; W07.XXXA Fall from chair, initial encounter; F41.9 Anxiety disorder, unspecified; Y92.129 Unspecified place in nursing home as the place of occurrence of the external cause
CPT/HCPCS: 70450; 71101; 72125; 73030; 73502; 96372; 99282

== ENCOUNTER → 2023-12-12 | Outpatient (CLI) | payer MEDICARE, SELFPAY ==
[2023-03-13 16:01] VITALS: BMI 43.3
[2023-12-12 11:09] LABS: PTHIN 206.1 pg/mL (18.4-80.1)
[2023-12-12 11:13] LABS: Vitamin D,25 Hydroxy 22.5 ng/mL
[2023-12-12 11:20] LABS: ALB/GLOB Ratio 0.9 RATIO (0.9-2.4); AST(SGOT) 18 U/L (15-37); Alanine Aminotransfer ALT/SGPT 24 U/L (16-61); Albumin, Serum 3.4 g/dL (3.2-5.0); Alkaline Phosphatase 91 U/L (45-117); Anion Gap 8 (5-15); BUN 38 mg/dL (7-18); BUN/Creat Ratio 19.9 RATIO (10-20); Calcium,Total 10.2 mg/dL (8.5-10.1); Chloride 104 mmol/L (98-107); Creatinine, Serum 1.91 mg/dL (0.70-1.30); EST Glomerular Filtration Rate 38 mL/min (>60); Est Glom Filt Rate - Afr Amer 45 mL/min (>60); Globulin 3.9 g/dL (2.2-4.2); Glucose 236 mg/dL (74-106); Potassium 3.5 mmol/L (3.5-5.1); Protein, Total 7.3 g/dL (6.4-8.2); Sodium Level 138 mmol/L (136-145)
== END | disposition home or self-care (01) ==
LOC: PSN 09:39
PROVIDERS: Internal Medicine Endocrinology, Diabetes & Metabolism; PCP Family Medicine; Referring Provider Nurse Practitioner Acute Care; Visit Provider Nurse Practitioner Acute Care
DX: E11.22 Type 2 diabetes mellitus with diabetic chronic kidney disease (principal); Z79.4 Long term (current) use of insulin; N18.31 Chronic kidney disease, stage 3a; E78.2 Mixed hyperlipidemia; E21.0 Primary hyperparathyroidism; I12.9 Hypertensive chronic kidney disease with stage 1 through stage 4 chronic kidney disease, or unspecified chronic kidney disease; E66.09 Other obesity due to excess calories; Z68.34 Body mass index [BMI] 34.0-34.9, adult; E55.9 Vitamin D deficiency, unspecified; E78.1 Pure hyperglyceridemia; R06.09 Other forms of dyspnea
CPT/HCPCS: 36415; 80053; 82306; 83970; 84443; 94060; 94726; 94729

== ENCOUNTER → 2023-12-14 | Outpatient (CLI) | payer MEDICARE, SELFPAY ==
[2023-03-13 16:01] VITALS: BMI 43.3
[2023-12-14 12:44] VITALS: PULSE 74; PULSE 76; PULSE 81; PULSE 82; PULSE 83; PULSE 88; PULSE 92; O2SAT 95; O2SAT 97; O2SAT 98; O2SAT 99
--- NOTE | 2023-12-22 09:39 | WT_ITS ---
PSN 6 Minute Walk Test 6 Minute Walk Test 6 Minute Walk Test: 6 Minute Walk Test PSN:6-Minute Walk Test Start: 12/14/23 12:44 Freq: Status: Active Protocol: RESP.6MINW Document 12/14/23 12:44 KELLY (Rec: 12/14/23 12:46 KELLY [id number]) 6 Minute Walk Test Date Performed 12/14/23 Time Performed 12:30 Height 5 ft 10 in Weight: 260 lb Weight in Pounds 260.[address]: Ariana Juarez [employer]UDIO VIDEO REPAIRER Assistive device used: Walker Pre-test Oxygen Delivery Method Room Air Pulse Ox (%) 98 Pulse Rate (60-100 beats/min) 74 Dyspnea Penelope Scale (0-10) 0.5 Exertion Penelope Scale (6-20) 6 1st minute Oxygen Delivery Method Room Air Pulse Ox (%) 97 Pulse Rate (60-100 beats/min) 88 2nd minute Oxygen Delivery Method Room Air Pulse Ox (%) 95 Pulse Rate (60-100 beats/min) 92 Number of Rests Taken 1 3rd minute Oxygen Delivery Method Room Air Pulse Ox (%) 98 Pulse Rate (60-100 beats/min) 82 4th minute Oxygen Delivery Method Room Air Pulse Ox (%) 95 Pulse Rate (60-100 beats/min) 83 Number of Rests Taken 1 5th minute Oxygen Delivery Method Room Air Pulse Ox (%) 99 Pulse Rate (60-100 beats/min) 81 6th minute Oxygen Delivery Method Room Air Pulse Ox (%) 97 Pulse Rate (60-100 beats/min) 88 Dyspnea Penelope Scale (0-10) 4 Exertion Penelope Scale (6-20) 13 Post-test Oxygen Delivery Method Room Air Pulse Ox (%) 98 Pulse Rate (60-100 beats/min) 76 Full Laps Walked 6 Partial Lap, Number of Tiles Walked 10 Total Distance Walked (ft) 364 Interpretation Interpretation: The patient ambulated 364 feet over the course of 6 minutes beginning on room air with the use of a walker. Pretesting oxygen saturation was noted to be 98% on room air. With ambulation, the geo oxygen saturation was 95%. Although there was evidence of impaired walk distance, there was no significant exertional oxygen desaturation. Recommendations Recommendations: There is no indication for the use of supplemental oxygen at this time.
== END | disposition home or self-care (01) ==
LOC: PSN 12:27
PROVIDERS: PCP Family Medicine; Referring Provider Nurse Practitioner Acute Care; Visit Provider Nurse Practitioner Acute Care
DX: R06.09 Other forms of dyspnea (principal)
CPT/HCPCS: 94618

== ENCOUNTER → 2023-12-15 | Outpatient (CLI) | payer MEDICARE, SELFPAY ==
[2023-03-13 16:01] VITALS: BMI 43.3
[2023-12-15 16:07] LABS: Absolute Lymphocyte Count 0.41 X10^3/uL (0.83-4.51); Absolute Neutrophil Count 7.2 X10^3/uL (2.0-7.7); Basophil# 0.05 X10^3/uL; Basophil% 0.6 % (0-1); Eosinophil# 0.19 X10^3/uL; Eosinophils% 2.1 % (0-5); Hematocrit 36.9 % (40-54); Hemoglobin 11.1 g/dL (13.0-16.5); Lymphocyte # 0.41 X10^3/ul (0.83-4.51); Lymphocyte % 4.6 % (19-41); Mean Corp Hgb Conc 30.1 g/dL (32-36); Mean Corpuscular Hgb 24.8 pg (27.0-32.0); Mean Corpuscular Volume 82.4 fL (80-94); Monocyte# 0.99 X10^3/uL; Monocyte% 11.2 % (0-10); NRBC Flagged by Analyzer 0 % (0-5); Neutrophil # 7.15 X10^3/uL (2.7-7.7); Neutrophil % 80.6 % (47-70); POSITIVE COUNT YES; POSITIVE DIFFERENTIAL YES; Platelet Count 296 K/mm3 (150-450); RBC Distribution Width CV 16.1 % (11.6-14.6); RBC Distribution Width SD 48.5 fl (35.1-43.9); Red Blood Count 4.48 M/mm3 (4.6-6.2); White Blood Count 8.9 K/mm3 (4.4-11.0)
[2023-12-15 16:35] LABS: Platelet Estimate ADEQUATE (ADEQ)
[2023-12-15 16:36] LABS: Platelet Morphology CLUM
[2023-12-15 16:37] LABS: Differential Indicated SCAN CRITERIA MET; Iron 45 ug/dL (65-175); Iron Binding Capacity,Total 581 ug/dL (250-450); PERCENT IRON SATURATION 7.7 % (15.0-55.0)
== END | disposition home or self-care (01) ==
LOC: LAB 15:46
PROVIDERS: PCP Family Medicine; Referring Provider Student in an Organized Health Care Education/Training Program; Visit Provider Student in an Organized Health Care Education/Training Program
DX: K92.2 Gastrointestinal hemorrhage, unspecified (principal)
CPT/HCPCS: 36415; 83540; 83550; 85025

== ENCOUNTER → 2024-01-15 | Outpatient (CLI) | payer MEDICARE, SELFPAY ==
[2023-03-13 16:01] VITALS: BMI 43.3
[2024-01-15 22:23] LABS: BNP,B-Type NATRIURETIC PEPTIDE 254.2 pg/mL (0-100)
[2024-01-15 22:24] LABS: Anion Gap 8 (5-15); BUN 48 mg/dL (7-18); BUN/Creat Ratio 22.5 RATIO (10-20); Calcium,Total 10.5 mg/dL (8.5-10.1); Chloride 104 mmol/L (98-107); Creatinine, Serum 2.13 mg/dL (0.70-1.30); EST Glomerular Filtration Rate 33 mL/min (>60); Est Glom Filt Rate - Afr Amer 40 mL/min (>60); Glucose 228 mg/dL (74-106); Potassium 4.2 mmol/L (3.5-5.1); Sodium Level 140 mmol/L (136-145)
== END | disposition home or self-care (01) ==
LOC: LABSPEC 22:01
PROVIDERS: Physician Assistant Medical; PCP Family Medicine; Visit Provider Family Medicine
DX: I50.9 Heart failure, unspecified (principal)
CPT/HCPCS: 80048; 83880

== ENCOUNTER → 2024-04-09 | Outpatient (CLI) | payer MEDICARE, SELFPAY ==
[2023-03-13 16:01] VITALS: BMI 43.3
--- NOTE | 2024-04-09 12:31 | CT_ITS ---
INDICATION: abnormal xray, rales on exam, shortness of breath EXAMINATION: CT CHEST WITHOUT CONTRAST - CT Chest W/O Contrast Injection TECHNIQUE: Helically acquired images were obtained of the chest. The protocol utilizes one or more of the following dose reduction techniques: automated exposure control, adjustment of mA and/or kV according to patient size,and/or use of iterative reconstruction technique. IV Contrast dosage and agent: None. RADIATION DOSAGE (If Supplied By Facility): CTDIvol = ( 22.61 ) mGy, DLP = ( 852.44 ) mGycm COMPARISON: No relevant prior comparison study available FINDINGS: LUNGS, PLEURA AND LARGE AIRWAYS: The central airways are patent. Minimal bibasilar atelectasis. No masses, consolidation, or edema. Calcified granuloma at the left base. No pleural effusion or thickening. No pneumothorax. THYROID: No thyroid lesions. HEART AND PERICARDIUM: Mildly prominent heart. No pericardial effusion. Left chest wall pacer. Leads of the right atrium and right ventricle. CORONARY ARTERIES: Coronary artery calcification is seen. VESSELS: Thoracic aorta is not dilated. MEDIASTINUM AND TAMELA: No mediastinal or hilar adenopathy. Esophagus is unremarkable. No hiatal hernia. UPPER ABDOMEN: No acute pathology. Bilateral lipid rich adenomas at the adrenal glands. No specific follow-up recommended. BONES: No suspicious lytic or blastic abnormality. CT/Chest without Contrast IMPRESSION: Minimal bibasilar atelectasis. Otherwise no acute finding in the lungs. Electronically Signed: Sotero Bravo MD at 0:52 EST ,
[2024-04-09 13:36] VITALS: PULSE 80; PULSE 84; PULSE 85; PULSE 87; PULSE 88; O2SAT 87; O2SAT 90; O2SAT 92; O2SAT 95; O2SAT 96
--- NOTE | 2024-04-16 13:28 | PCM.PSN.6M ---
PSN 6 Minute Walk Test 6 Minute Walk Test 6 Minute Walk Test: 6 Minute Walk Test PSN:6-Minute Walk Test Start: 04/09/24 13:22 Freq: Status: Active Protocol: [id number].6MINW Document 04/09/24 13:36 KELLY (Rec: 04/09/24 13:38 KELLY [id number]) 6 Minute Walk Test Date Performed 04/09/24 Time Performed 12:30 Height 5 ft 10 in Weight: 260 lb Weight in Pounds 260.[address]: Africa Wei Assistive device used: Walker Pre-test Oxygen Delivery Method Room Air Pulse Ox (%) 92 Pulse Rate (60-100 beats/min) 84 Dyspnea Penelope Scale (0-10) 0.5 Exertion Penelope Scale (6-20) 6 1st minute Oxygen Delivery Method Room Air Pulse Ox (%) 90 Pulse Rate (60-100 beats/min) 87 2nd minute Oxygen Delivery Method Room Air Pulse Ox (%) 87 Pulse Rate (60-100 beats/min) 88 3rd minute Oxygen Flow Rate (L/min) (L/min) 2 Oxygen Delivery Method Nasal Cannula Pulse Ox (%) 96 Pulse Rate (60-100 beats/min) 85 4th minute Oxygen Flow Rate (L/min) (L/min) 2 Oxygen Delivery Method Nasal Cannula Pulse Ox (%) 96 Pulse Rate (60-100 beats/min) 87 Number of Rests Taken 1 5th minute Oxygen Flow Rate (L/min) (L/min) 2 Oxygen Delivery Method Nasal Cannula Pulse Ox (%) 96 Pulse Rate (60-100 beats/min) 85 6th minute Oxygen Flow Rate (L/min) (L/min) 2 Oxygen Delivery Method Nasal Cannula Pulse Ox (%) 95 Pulse Rate (60-100 beats/min) 88 Dyspnea Penelope Scale (0-10) 4 Exertion Penelope Scale (6-20) 14 Post-test Oxygen Flow Rate (L/min) (L/min) 2 Oxygen Delivery Method Nasal Cannula Pulse Ox (%) 96 Pulse Rate (60-100 beats/min) 80 Full Laps Walked 6 Partial Lap, Number of Tiles Walked 0 Total Distance Walked (ft) 354 Interpretation Interpretation: The patient ambulated 354 feet over the course of 6 minutes beginning on room air with the use of a walker. Pretesting oxygen saturation was noted to be 92% on room air. With ambulation, the geo oxygen saturation was 87%. 2 L/min of supplemental oxygen was applied, and the patient was able to complete the remainder of the test while maintaining appropriate saturations. Recommendations Recommendations: 2 L/min of supplemental oxygen should be utilized with exertion.
== END | disposition home or self-care (01) ==
LOC: PSN 12:28
PROVIDERS: PCP Family Medicine; Referring Provider Nurse Practitioner Family; Visit Provider Nurse Practitioner Family
DX: R93.89 Abnormal findings on diagnostic imaging of other specified body structures (principal); R60.9 Edema, unspecified; R06.09 Other forms of dyspnea
CPT/HCPCS: 71250; 94618

== ENCOUNTER → 2024-06-21 | Outpatient (CLI) | payer MEDICARE, MEDICAID, SELFPAY ==
[2023-03-13 16:01] VITALS: BMI 43.3
--- NOTE | 2024-06-21 08:02 | US_ITS ---
PROCEDURE: ABDOMEN LIMITED REASON FOR EXAM: RUQ PAIN COMPARISON: Comparison is made with prior study dated September 10, 2023. FINDINGS: Liver: Diffusely echogenic suggesting fatty infiltration.. Hepatomegaly. The liver measures 20.5 cm. There is a 6 mm x 9 mm x 6 mm echogenic focus in the left lobe of the liver suggestive of a small hemangioma. Gallbladder: No stones,, wall thickening or tenderness. Small amount of sludge is seen. No evidence of gallstones. Common bile duct: Normal measuring . Pancreas: Obscured by bowel gas. Multiple cysts are seen in the right kidney. The largest cyst measures 3.3 cm x 2.4 cm x 2.3 cm.. No right upper quadrant ascites. US/Abdomen Limited IMPRESSION: Hepatomegaly and diffuse fatty infiltration of the liver. Findings suggestive of a subcentimeter hemangioma in the left lobe of the liver . Small amount of sludge is seen in the gallbladder lumen. Multiple right renal cysts. Reading Location: [facility]-
== END | disposition home or self-care (01) ==
LOC: US 07:59
PROVIDERS: PCP Family Medicine; Referring Provider Student in an Organized Health Care Education/Training Program; Visit Provider Student in an Organized Health Care Education/Training Program
DX: R10.11 Right upper quadrant pain (principal)
CPT/HCPCS: 76705

== ENCOUNTER 2024-08-09 14:07 | Inpatient (IN) | payer MEDICARE, MEDICAID, SELFPAY ==
[2023-03-13 16:01] VITALS: BMI 43.3
[2024-08-09] VITALS (11 sets, daily range): BP systolic 116–170; BP diastolic 68–91; PULSE 70–72; RESP 20–24; TEMP 36.5–36.9; O2SAT 94–98; BMI 39.9; BMI 39.2
--- NOTE | 2024-08-09 14:32 | EKG12_ITS ---
Test Reason : SOB Blood Pressure : */* mmHG Vent. Rate : 70 BPM Atrial Rate : 49 BPM P-R Int : * ms QRS Dur : 202 ms QT Int : 484 ms P-R-T Axes : * -79 95 degrees QTcB Int : 522 ms Ventricular-paced rhythm Abnormal ECG Confirmed by BAILEE PIZANO, NII ([id number]), loan expeditor NAZ NORIEGA ([id number]) on 08/16/2024 12:36:34 PM Referred By: Chey Kearney Confirmed By: NII MOROCHO MD
--- NOTE | 2024-08-09 14:47 | ED.VIS.DYS ---
HPI <ANJEL Medina - Last Filed: 08/09/24 16:34> History of Present Illness Chief Complaint: Shortness of Breath Narrative Narrative: 68-year-old male with PMH of HTN, HLD, DM2, CAD with stents, COPD, CHF, pacemaker, GERD, CKD, PE, PVD presents with 6 weeks of worsening shortness of breath. States he feels short of breath all the time. He initially felt it was from COPD and his nebulizer treatments 3 times a day seemed to be helping but it has continued and worsened over the last few days. He is from [facility] and has oxygen to use as needed and started wearing 3 L during the day over the last 2 days. He uses BiPAP at night for sleep apnea. His chest feels tight but he does not necessarily have pain. He has no fever and states he coughed up phlegm once but otherwise does not have a cough. He has had worsening bilateral lower extremity swelling over the last week and is on Lasix but is unsure of the dose. He states his legs got a little bit red and he had a small wound on the left evangelista from skin being pulled out from his socks so they started doxycycline on August 07. He is on Plavix for history of heart stents. [facility] <ANJEL Medina - Last Filed: 08/09/24 16:34> [facility] Medical History (Updated 08/09/24 @ 15:[address] Brady Zaidi MD) CKD (chronic kidney disease), stage III Major depressive disorder Peripheral vascular disease Abnormal chest xray Pacemaker Obesity Acute hypoxemic respiratory failure Lives in group home Loss of hearing Tinnitus of both ears Wears glasses Anxiety Pressure ulcer Thyroid disease Uses wheelchair Ambulates with cane Arthritis History of renal disease Hepatitis Pulmonary embolism Back pain Injury of head and neck Hypotension Dietary restriction History of ulceration History of GI bleed History of diverticulitis Non-smoker COPD (chronic obstructive pulmonary disease) Shortness of breath on exertion History of edema History of echocardiogram History of stress test Cardiology follow-up encounter Chest pain Presence of permanent cardiac pacemaker Sick sinus syndrome Alcohol abuse Depression GERD (gastroesophageal reflux disease) BiPAP (biphasic positive airway pressure) dependence Irregular heart beat Congestive heart failure (CHF) Hypertension DVT (deep venous thrombosis) Fall Intermittent chest pain Gastric ulcer GI bleed Heart failure with preserved ejection fraction Atrial fibrillation Olecranon bursitis Debility Dizziness Anxiety and depression Vertigo Shortness of breath Diabetes Asthma Anemia Dark stools Benign essential HTN MEANS (dyspnea on exertion) Osteopenia Primary hyperparathyroidism Chest pain Hyperparathyroidism Seizures Adult failure to thrive Type 2 diabetes mellitus Chronic pain of both knees Vitamin D deficiency Renal insufficiency Fatigue Arthritis Colon cancer screening Health care maintenance Acute midline thoracic back pain Hyperlipidemia Hypercalcemia Secondary pulmonary hypertension Depression Congestive heart failure Chronic wound of head Sciatica Insomnia Pure hypercholesterolemia Atherosclerosis of coronary artery of [place] heart without angina pectoris Chronic hypoxemic respiratory failure FAVIAN (obstructive sleep apnea) Dyspnea on exertion History of pulmonary embolism Acquired left ventricular hypertrophy Near syncope Hypoxia Hypertriglyceridemia Morbid obesity with BMI of 40.0-44.9, adult Osteoarthritis History of DVT (deep vein thrombosis) Home Medications ?Medication ?Instructions ?Recorded ?Last Taken ?Type ranolazine 500 mg tablet,extended 500 mg PO BID chest pain #180 tabs 12/20/22 07/28/23 Rx release,12 hr ferrous sulfate 325 mg (65 mg 325 mg PO DAILY supplement #90 tabs 05/19/23 07/28/23 Rx iron) tablet paroxetine HCl 40 mg tablet 40 mg PO DAILY mood #30 tabs 05/19/23 07/28/23 Rx pantoprazole 40 mg tablet,delayed 40 mg PO DAILY GI #90 tabs 06/01/23 Unknown Rx release metoprolol succinate 50 mg 50 mg PO Q12H blood pressure #60 06/12/23 06/19/23 Rx tablet,extended release 24 hr tabs potassium chloride 20 mEq 20 meq PO BIDCM #0 tabs 07/31/23 Unknown Rx tablet,extended release(part/cryst) sucralfate 1 gram tablet 1 g PO 1HR_ACHS #0 tabs 07/31/23 Unknown Rx bisacodyl 10 mg rectal suppository 10 mg DC DAILY PRN constipation 08/08/23 Unknown History insulin lispro 100 unit/mL 1 sliding scale dose subcut 08/08/23 Unknown History subcutaneous solution (Humalog USEASDIRECTD U-100 Insulin) magnesium hydroxide 400 mg/5 mL 30 ml PO DAILY PRN constipation 08/08/23 Unknown History oral suspension (Milk of Magnesia) mineral oil (Fleet Mineral Oil 118 ml DC DAILY PRN constipation 08/08/23 Unknown History enema) fenofibrate micronized 200 mg 145 mg PO DAILY 08/11/23 Unknown History capsule hydralazine 100 mg tablet 100 mg PO TID #270 tabs 02/21/24 Unknown Rx cholecalciferol (vitamin D3) 50 100 mcg PO QDAY 03/15/24 Unknown History mcg (2,000 unit) capsule clopidogrel 75 mg tablet 75 mg PO QDAY 03/15/24 Unknown History furosemide 40 mg tablet 60 mg PO BID water pill 03/15/24 Unknown History nebulizer kits #1 ea 03/15/24 Unknown Rx nebulizer machine #1 ea 03/15/24 Unknown Rx semaglutide 1 mg/dose (4 mg/3 mL) mg subcut 03/15/24 Unknown History subcutaneous pen injector (Ozempic) therapeutic multivitamin 1 tab PO QAM 03/15/24 Unknown History budesonide 1 mg/2 mL suspension 1 mg (2 mL) inhalation BID #120 mL 05/03/24 Unknown Rx for nebulization insulin glargine 100 unit/mL (3 33 unit subcut QAM 07/22/24 Unknown History mL) subcutaneous pen (Lantus Solostar U-100 Insulin) insulin lispro 100 unit/mL 5 unit subcut QAM 07/22/24 Unknown History subcutaneous pen insulin lispro 100 unit/mL 6 unit subcut QDAY 07/22/24 Unknown History subcutaneous pen insulin lispro 100 unit/mL 8 unit subcut QDAY 07/22/24 Unknown History subcutaneous pen acetaminophen 500 mg tablet 1,000 mg PO Q8H PRN 08/01/24 Unknown History albuterol sulfate 2.5 mg/3 mL 2.5 mg inhalation BID PRN 08/01/24 Unknown History (0.083 %) solution for nebulization ammonium lactate 5 % lotion 1 applic topical QD-BID PRN 08/01/24 Unknown History cinacalcet 30 mg tablet 30 mg PO BID 08/01/24 Unknown History oxycodone 5 mg tablet 5 mg PO Q6H PRN Pain Score 6-10 08/01/24 Unknown History proheal 30 ml PO BID 08/01/24 Unknown History Allergy/AdvReac Type Severity Reaction Status Date / Time No Known Allergies Allergy Verified 08/09/24 14:13 Family History (Reviewed 08/01/24 @ 14:55 by Ariana Juarez GEOCHEMICAL LABORATORY TECHNICIAN, GEOCHEMICAL LABORATORY TECHNICIAN-C) Mother Colon cancer Sister CAD (coronary artery disease) CABG x 5 Diabetes Myocardial infarction, Onset Age: 67 Father Crohns disease Surgical History History of cardiac catheterization History of appendectomy History of eye surgery History of intestinal surgery History of appendectomy History of tonsillectomy and adenoidectomy History of knee surgery History of hip replacement 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) History of coronary artery stent placement (10/21/22) Social History (Reviewed 08/01/24 @ 14:55 by Ariana Juarez GEOCHEMICAL LABORATORY TECHNICIAN, GEOCHEMICAL LABORATORY TECHNICIAN-C) household members: none housing: apartment current occupational status: retired pets and animals: No other: Hx working in [employer]. Smoking Status: Never smoker second hand exposure: Yes alcohol intake: former year quit: 2003 details: Sober since 2003. substance use type: former substance user Date of last use: 04/10/2004 and marijuana caffeine: Yes Type: carbonated beverages Number of servings: 2 and coffee Number of servings: 2 what type of physical activity do you participate in: none ROS <ANJEL Medina - Last Filed: 08/09/24 16:34> ROS ED ROS Narrative Constitutional: Negative for fever, chills, malaise. CVS: Negative for palpitations, syncope. Respiratory: Positive for shortness of breath. Negative for cough. GI: Negative for abdominal pain, nausea, vomiting, diarrhea. EXAM <ANJEL Medina - Last Filed: 08/09/24 16:34> Physical Exam Narrative Exam Narrative: CONST: Patient sitting in no acute distress. EYES: Normal inspection. ENT: Normal inspection, moist mucous membranes. NECK: Normal inspection. RESP: No respiratory distress, CTAB but limited by body habitus. CVS: Regular rate and rhythm, no murmur, no gallop. SKIN: Color normal, no rash, warm, dry, intact. EXTREMITIES: Bilateral pitting edema both lower extremities, erythema of bilateral lower shins without warmth or open wounds. NEURO: Alert and answering questions appropriately. PSYCH: Normal affect. Const Vital Signs: 08/09/24 14:10 08/09/24 14:14 08/09/24 15:09 Temperature 98.3 F Temperature Source Oral Pulse Rate 71 Respiratory Rate 20 H Respiratory Effort Short of Breath Respiratory Depth Normal Respiratory Pattern Normal Blood Pressure 153/78 H Blood Pressure Mean 103 Pulse Ox 97 Oxygen Delivery Method Nasal Cannula Nasal Cannula Nasal Cannula Oxygen Flow Rate (L/min) 2 2 2 08/09/24 15:13 Temperature 98.2 F Temperature Source Oral Pulse Rate 70 Respiratory Rate 20 H Respiratory Effort Respiratory Depth Respiratory Pattern Blood Pressure 132/68 H Blood Pressure Mean 89 Pulse Ox 94 Oxygen Delivery Method Nasal Cannula Oxygen Flow Rate (L/min) 2 <Dr. Brady Zaidi MD - Last Filed: 08/09/24 15:45> Physical Exam Const Vital Signs: 08/09/24 14:10 08/09/24 14:14 08/09/24 15:09 Temperature 98.3 F Temperature Source Oral Pulse Rate 71 Respiratory Rate 20 H Respiratory Effort Short of Breath Respiratory Depth Normal Respiratory Pattern Normal Blood Pressure 153/78 H Blood Pressure Mean 103 Pulse Ox 97 Oxygen Delivery Method Nasal Cannula Nasal Cannula Nasal Cannula Oxygen Flow Rate (L/min) 2 2 2 08/09/24 15:13 Temperature 98.2 F Temperature Source Oral Pulse Rate 70 Respiratory Rate 20 H Respiratory Effort Respiratory Depth Respiratory Pattern Blood Pressure 132/68 H Blood Pressure Mean 89 Pulse Ox 94 Oxygen Delivery Method Nasal Cannula Oxygen Flow Rate (L/min) 2 MDM <ANJEL Medina - Last Filed: 08/09/24 16:34> [facility] Narrative Medical decision making narrative: Differential includes but not limited to CHF, COPD, pneumonia 68-year-old male with PMH of COPD/CHF presents with 6 weeks of worsening dyspnea and 1 week of worsening bilateral lower extremity edema. He is from a SNF and can use O2 as needed and has been wearing 3 L over the last few days. He appears well and nontoxic. Vital signs stable. He is on 2 L. 94% or above. Lung sounds diminished but clear, mild tachypnea with conversation. Lower extremities have significant pitting edema with overlying redness/chronic venous stasis. White count is 8.3. Hemoglobin of 10.1 is around baseline. Normal electrolytes. BUN 52, creatinine 2.30 is also around baseline. BNP 5387. Nonspecific elevated troponin is 123. He has no chest pain and I do not suspect ACS. He was given IV Lasix 40 mg and case was discussed with the hospitalist for admission. External records reviewed: Echo 10/21/2022 EF 55 to 60% Normal LV systolic function. Moderate MR. Lab Data Attestation: I reviewed the patient's lab results. Labs: Laboratory Results - last 24 hr 08/09/24 14:50 WBC 8.3 RBC 3.96 L Hgb 10.1 L Hct 33.4 L MCV 84.3 MCH 25.5 L MCHC 30.2 L RDW Std Deviation 48.6 H RDW Coeff of Thao 16.0 H Plt Count 259 MPV 9.5 Immature Gran % (Auto) 1.000 H Neut % (Auto) 81.1 H Lymph % (Auto) 4.2 L [place] % (Auto) 12.1 H Eos % (Auto) 1.1 Baso % (Auto) 0.5 Absolute Neuts (auto) 6.7 Absolute Lymphs (auto) 0.35 L Nucleated RBC % 0 Sodium 141 Potassium 3.5 Chloride 101 Carbon Dioxide 28.2 Anion Gap 12 BUN 52 H Creatinine 2.30 H Estim Creat Clear Calc 41.60 L Est GFR (MDRD) Non-Af 30 L BUN/Creatinine Ratio 22.6 H Glucose 183 H Calcium 10.6 Troponin T High Sens 123 H* NT pro BNP II 5387 H Radiography Diagnostic Testing: Clinical Impression(s) from Imaging Studies Chest X-Ray 08/09/24 15:00 IMPRESSION: Mild cardiomegaly and pulmonary vascular congestion. No acute findings. Reading Location: [facility] ED attending interpretation 1 view chest x-ray shows cardiomegaly, pulmonary congestion. <Dr. Brady Zaidi MD - Last Filed: 08/09/24 15:45> [facility] Lab Data Labs: Laboratory Results - last 24 hr 08/09/24 14:50 WBC 8.3 RBC 3.96 L Hgb 10.1 L Hct 33.4 L MCV 84.3 MCH 25.5 L MCHC 30.2 L RDW Std Deviation 48.6 H RDW Coeff of Thao 16.0 H Plt Count 259 MPV 9.5 Immature Gran % (Auto) 1.000 H Neut % (Auto) 81.1 H Lymph % (Auto) 4.2 L [place] % (Auto) 12.1 H Eos % (Auto) 1.1 Baso % (Auto) 0.5 Absolute Neuts (auto) 6.7 Absolute Lymphs (auto) 0.35 L Nucleated RBC % 0 Sodium 141 Potassium 3.5 Chloride 101 Carbon Dioxide 28.2 Anion Gap 12 BUN 52 H Creatinine 2.30 H Estim Creat Clear Calc 41.60 L Est GFR (MDRD) Non-Af 30 L BUN/Creatinine Ratio 22.6 H Glucose 183 H Calcium 10.6 Troponin T High Sens 123 H* NT pro BNP II 5387 H Radiography Diagnostic Testing: Clinical Impression(s) from Imaging Studies Chest X-Ray 08/09/24 15:00 IMPRESSION: Mild cardiomegaly and pulmonary vascular congestion. No acute findings. Reading Location: [id number] Management Discussion w/another healthcare provider: Hospitalist Treatment and Re-Evaluation Comments:: I have personally performed a face to face assessment of the patient and have reviewed the CHU Note. I performed a substantive portion of the visit including all aspects of the following. My hernandez findings include: History is worsening dyspnea over the last couple months, and worsening edema. Everything worse in the past week, today he states he is completely out of breath with any little activity even transferring from wheelchair to bed, he is dyspneic at rest, he has orthopnea. They took his sock off on the other day and pulled off some skin from his edematous legs and so started on some antibiotics to prevent infection. He states the redness in his legs has been there waxing and waning for months along with the edema. States it is not really painful. Denies any fevers or chills. Exam is significant edema on both legs symmetric with chronic stasis dermatitis. No abscess or obvious infection. Minimally tender. Very diminished in the bases. A little tachypneic but able to converse. Possibly mild JVD but limited by obesity abdomen benign heart occasionally irregular with occasional PVCs on the monitor Medical Decison Making one-view portable chest x-ray on my interpretation shows mild pulmonary vascular congestion, cardiomegaly, no major effusion or other pathology. He has renal insufficiency, nonspecifically elevated troponin, high proBNP, and clinically he has respiratory insufficiency. Treated with IV Lasix, plan is admission for continued diuresis possibly repeat echo, my suspicion is the elevated troponin is related to strain not ACS. Other additions or changes: [None] Discharge Plan Dx/Rx/DC Orders Clinical Impression: Acute and chronic respiratory failure with hypoxia, Acute on chronic kidney failure, Acute exacerbation of CHF (congestive heart failure) Disposition Disposition: Acute Care Hospital [facility] Discharge Date/Time: 08/09/24 16:29
--- NOTE | 2024-08-09 15:00 | RAD_ITS ---
PROCEDURE: CHEST 1 VIEW (PORTABLE) 08/09/2024 REASON FOR EXAM: CHEST PAIN TECHNIQUE: Frontal view of the chest. COMPARISON: CT chest 04/09/2024, chest radiograph 10/25/2023. FINDINGS: Hardware: Left chest wall pacemaker in place. Heart: Stable mild cardiomegaly with pulmonary vascular congestion. Lungs: Low lung volumes. No focal consolidation, pleural effusion or pneumothorax. Bones: Degenerative changes are identified within the thoracic spine. RAD/Chest 1 View (Portable) IMPRESSION: Mild cardiomegaly and pulmonary vascular congestion. No acute findings. Reading Location: [id number]
[2024-08-09 15:06] LABS: Absolute Lymphocyte Count 0.35 X10^3/uL (0.83-4.51); Absolute Neutrophil Count 6.7 X10^3/uL (2.0-7.7); Basophil# 0.04 X10^3/uL; Basophil% 0.5 % (0-1); Eosinophil# 0.09 X10^3/uL; Eosinophils% 1.1 % (0-5); Hematocrit 33.4 % (40-54); Hemoglobin 10.1 g/dL (13.0-16.5); Lymphocyte # 0.35 X10^3/ul (0.83-4.51); Lymphocyte % 4.2 % (19-41); Mean Corp Hgb Conc 30.2 g/dL (32-36); Mean Corpuscular Hgb 25.5 pg (27.0-32.0); Mean Corpuscular Volume 84.3 fL (80-94); Mean Platelet Vol. 9.5 fl (6.2-12.0); Monocyte% 12.1 % (0-10); NRBC Flagged by Analyzer 0 % (0-5); Neutrophil # 6.73 X10^3/uL (2.7-7.7); Neutrophil % 81.1 % (47-70); POSITIVE DIFFERENTIAL YES; Platelet Count 259 K/mm3 (150-450); RBC Distribution Width SD 48.6 fl (35.1-43.9); Red Blood Count 3.96 M/mm3 (4.6-6.2); White Blood Count 8.3 K/mm3 (4.4-11.0)
[2024-08-09] MEDS: Furosemide 40 MG/4 ML Vial IV (15:06)
[2024-08-09] MEDS: Aspirin 81 MG TAB.CHEW 324 MG PO (15:06)
[2024-08-09 15:33] LABS: Pro- Brain NATRIURETIC PEPTIDE 5387 pg/mL (<=900)
[2024-08-09 15:37] LABS: Anion Gap 12 (5-15); BUN 52 mg/dL (4-19); BUN/Creat Ratio 22.6 RATIO (10-20); Calcium,Total 10.6 mg/dL (7.6-11.0); Carbon Dioxide 28.2 mmol/L (21.0-32.0); Chloride 101 mmol/L (98-108); EST Glomerular Filtration Rate 30 (>60); Glucose 183 mg/dL (70-99); Potassium 3.5 mmol/L (3.3-5.1); Sodium Level 141 mmol/L (133-145)
[2024-08-09 15:39] LABS: Troponin T High Sensitivity 123 ng/L (<=22)
--- NOTE | 2024-08-09 16:23 | HP.PCM.HOS_ITS ---
[facility] - General General Date of Admission: 08/09/24 Date of Service: 08/09/24 Chief Complaint: Shortness of breath, lower extremity edema [facility] Narrative ELIANE KAY, is a 68 M with a past medical history as outlined was admitted through the ED on 08/09/2024 with a complaint of shortness of breath. Shortness of breath and going on for about 6 weeks but says has been worsening. He initially felt the shortness of breath was from his COPD and he had been on breathing treatments with his nebulizers. Initially helped but subsequently his shortness of breath worsened with associated lower extremity edema. He wears BiPAP at night for sleep apnea and had also been requiring 3 L of oxygen during the day. He denied any chest pain no fever or chills. He had also noticed some redness of his lower extremities. Review of systems otherwise negative. He said he had been started on doxycycline on August 07, 2024 after he had a wound on his left evangelista and the skin was accidentally pulled off when his socks were being removed. Vitals in the ED where blood pressure 116/70, pulse rate of 71, respiratory rate of 24 and temperature of 98.4 Fahrenheit. He was saturating at 96% on 2 L of oxygen. CBC showed hemoglobin of 10.1 with WBC of 8.3 and platelets of 259. Chemistry showed sodium of 141 with potassium of 3.5 and bicarb of 28.2. Creatinine was 2.3. Initial troponin was 123 and proBNP was markedly elevated at 2387. Of note his baseline creatinine is around 1.7-1.9. EKG showed no acute ST changes and chest x-ray showed mild cardiomegaly and pulmonary vascular congestion. He has been admitted to monitor for acute exacerbation of heart failure and cellulitis of the left lower extremity. [facility] Medical History (Updated 08/09/24 @ 16:[address] Chey Kearney MD) CKD (chronic kidney disease), stage III Major depressive disorder Peripheral vascular disease Abnormal chest xray Pacemaker Obesity Acute hypoxemic respiratory failure Lives in alf Loss of hearing Tinnitus of both ears Wears glasses Anxiety Pressure ulcer Thyroid disease Uses wheelchair Ambulates with cane Arthritis History of renal disease Hepatitis Pulmonary embolism Back pain Injury of head and neck Hypotension Dietary restriction History of ulceration History of GI bleed History of diverticulitis Non-smoker COPD (chronic obstructive pulmonary disease) Shortness of breath on exertion History of edema History of echocardiogram History of stress test Cardiology follow-up encounter Chest pain Presence of permanent cardiac pacemaker Sick sinus syndrome Alcohol abuse Depression GERD (gastroesophageal reflux disease) BiPAP (biphasic positive airway pressure) dependence Irregular heart beat Congestive heart failure (CHF) Hypertension DVT (deep venous thrombosis) Fall Intermittent chest pain Gastric ulcer GI bleed Heart failure with preserved ejection fraction Atrial fibrillation Olecranon bursitis Debility Dizziness Anxiety and depression Vertigo Shortness of breath Diabetes Asthma Anemia Dark stools Benign essential HTN MEANS (dyspnea on exertion) Osteopenia Primary hyperparathyroidism Chest pain Hyperparathyroidism Seizures Adult failure to thrive Type 2 diabetes mellitus Chronic pain of both knees Vitamin D deficiency Renal insufficiency Fatigue Arthritis Colon cancer screening Health care maintenance Acute midline thoracic back pain Hyperlipidemia Hypercalcemia Secondary pulmonary hypertension Depression Congestive heart failure Chronic wound of head Sciatica Insomnia Pure hypercholesterolemia Atherosclerosis of coronary artery of [place] heart without angina pectoris Chronic hypoxemic respiratory failure FAVIAN (obstructive sleep apnea) Dyspnea on exertion History of pulmonary embolism Acquired left ventricular hypertrophy Near syncope Hypoxia Hypertriglyceridemia Morbid obesity with BMI of 40.0-44.9, adult Osteoarthritis History of DVT (deep vein thrombosis) Home Medications ?Medication ?Instructions ?Recorded ?Last Taken ?Type ranolazine 500 mg tablet,extended 500 mg PO BID chest pain #180 tabs 12/20/22 07/28/23 Rx release,12 hr ferrous sulfate 325 mg (65 mg 325 mg PO DAILY suppleme nt #90 tabs 05/19/23 07/28/23 Rx iron) tablet paroxetine HCl 40 mg tablet 40 mg PO DAILY mood #30 ta bs 05/19/23 07/28/23 Rx pantoprazole 40 mg tablet,delayed 40 mg PO DAILY GI #9 0 tabs 06/01/23 Unknown Rx release metoprolol succinate 50 mg 50 mg PO Q12H blood pressur e #60 06/12/23 06/19/23 Rx tablet,extended release 24 hr tabs potassium chloride 20 mEq 20 meq PO BIDCM #0 tabs 07/10 06/03 Unknown Rx tablet,extended release(part/cryst) sucralfate 1 gram tablet 1 g PO 1HR_ACHS #0 tabs 07/10 06/03 Unknown Rx bisacodyl 10 mg rectal suppository 10 mg TN DAILY PRN constipation 08/08/23 Unknown History insulin lispro 100 unit/mL 1 sliding scale dose subcut 08/08/23 Unknown History subcutaneous solution (Humalog USEASDIRECTD U-100 Insulin) magnesium hydroxide 400 mg/5 mL 30 ml PO DAILY PRN con stipation 08/08/23 Unknown History oral suspension (Milk of Magnesia) mineral oil (Fleet Mineral Oil 118 ml TN DAILY PRN con stipation 08/08/23 Unknown History enema) fenofibrate micronized 200 mg 145 mg PO DAILY 08/11/23 Unknown History capsule hydralazine 100 mg tablet 100 mg PO TID #270 tabs 02/08 07/01 Unknown Rx cholecalciferol (vitamin D3) 50 100 mcg PO QDAY Unknown History mcg (2,000 unit) capsule clopidogrel 75 mg tablet 75 mg PO QDAY 03/15/24 Unkno wn History furosemide 40 mg tablet 60 mg PO BID water pill 10/01 Unknown History nebulizer kits #1 ea 03/15/24 Unknown Rx nebulizer machine #1 ea 03/15/24 Unknown Rx semaglutide 1 mg/dose (4 mg/3 mL) mg subcut 03/15/24 U nknown History subcutaneous pen injector (Ozempic) therapeutic multivitamin 1 tab PO QAM 03/15/24 Unknow n History budesonide 1 mg/2 mL suspension 1 mg (2 mL) inhalation BID #120 mL 05/03/24 Unknown Rx for nebulization insulin glargine 100 unit/mL (3 33 unit subcut QAM Unknown History mL) subcutaneous pen (Lantus Solostar U-100 Insulin) insulin lispro 100 unit/mL 5 unit subcut QAM 07/22/24 Unknown History subcutaneous pen insulin lispro 100 unit/mL 6 unit subcut QDAY 07/22/24 Unknown History subcutaneous pen insulin lispro 100 unit/mL 8 unit subcut QDAY 07/22/24 Unknown History subcutaneous pen acetaminophen 500 mg tablet 1,000 mg PO Q8H PRN Unknown History albuterol sulfate 2.5 mg/3 mL 2.5 mg inhalation BID TN N 08/01/24 Unknown History (0.083 %) solution for nebulization ammonium lactate 5 % lotion 1 applic topical QD-BID TN N 08/01/24 Unknown History cinacalcet 30 mg tablet 30 mg PO BID 08/01/24 Unknow n History oxycodone 5 mg tablet 5 mg PO Q6H PRN Pain Score 6 -10 08/01/24 Unknown History proheal 30 ml PO BID 08/01/24 Unknow n History Allergy/AdvReac Type Severity Reaction Status Date / Time No Known Allergies Allergy Verified 08/09/24 14:13 Family History (Reviewed 08/01/24 @ 14:55 by Ariana Juarez COPPING MACHINE OPERATOR, COPPING MACHINE OPERATOR-C) Mother Colon cancer Sister CAD (coronary artery disease) CABG x 5 Diabetes Myocardial infarction, Onset Age: 67 Father Crohns disease Surgical History History of cardiac catheterization History of appendectomy History of eye surgery History of intestinal surgery History of appendectomy History of tonsillectomy and adenoidectomy History of knee surgery History of hip replacement 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) History of coronary artery stent placement (10/21/22) Social History (Reviewed 08/01/24 @ 14:55 by Ariana Juarez COPPING MACHINE OPERATOR, COPPING MACHINE OPERATOR-C) household members: none housing: apartment current occupational status: retired pets and animals: No other: Hx working in [employer] and [employer]. Smoking Status: Never smoker second hand exposure: Yes alcohol intake: former year quit: 2003 details: Sober since 2003. substance use type: former substance user Date of last use: 04/10/2004 and marijuana caffeine: Yes Type: carbonated beverages Number of servings: 2 and coffee Number of servings: 2 what type of physical activity do you participate in: none ROS Constitutional Constitutional: Reports fatigue, malaise and weakness; Denies anorexia, chills or fever(s) Eyes Eyes: Denies change in vision ENT HEENT: Denies dysphagia, headache(s), nasal congestion or sore throat Cardiovascular Cardiovascular: Reports dyspnea on exertion and edema; Denies chest pain, lightheadedness, orthopnea, palpitations, paroxysmal nocturnal dyspnea, rapid heart rate or syncope Respiratory/Chest Respiratory/Chest: Reports dyspnea, shortness of breath at rest and shortness of breath with exertion; Denies cough, productive cough or wheezing Gastrointestinal Gastrointestinal: Denies abdominal pain, constipation, diarrhea, nausea or vomiting Genitourinary Genitourinary: Denies burning urination, dysuria or hematuria Musculoskeletal Musculoskeletal: Denies arthralgias Neurologic Neurologic: Denies confusion, dizziness, focal weakness, headache(s), numbness, seizures, syncope, tingling or tremor(s) Psychiatric Psychiatric: Denies anxiety or depression Vital Signs Vital Signs Vital Signs: 08/09/24 14:10 08/09/24 14:14 08/09/24 15:09 Temperature 98.3 F Temperature Source Oral Pulse Rate 71 Respiratory Rate 20 H Respiratory Effort Short of Breath Respiratory Depth Normal Respiratory Pattern Normal Blood Pressure 153/78 H Blood Pressure Mean 103 Pulse Ox 97 Oxygen Delivery Method Nasal Cannula Nasal Cannula Nasal Cannula Oxygen Flow Rate (L/min) 2 2 2 08/09/24 15:13 08/09/24 16:00 Temperature 98.2 F 98.4 F Temperature Source Oral Pulse Rate 70 71 Respiratory Rate 20 H 24 H Respiratory Effort Respiratory Depth Respiratory Pattern Blood Pressure 132/68 H 116/70 Blood Pressure Mean 89 85 Pulse Ox 94 96 Oxygen Delivery Method Nasal Cannula Oxygen Flow Rate (L/min) 2 Weight Weight: 278 lb 10.629 oz Body Mass Index (BMI) 39.9 Physical Exam Const alert, oriented x3 and no apparent distress Constitutional Narrative: class III obesity General Appearance: cooperative HEENT normocephalic, head/scalp atraumatic, hearing grossly normal bilaterally and moist oral mucous membranes Mouth: oral and palatal mucosa normal Eyes PERRL, EOMs intact bilaterally and conjunctivae normal Neck no lymphadenopathy and supple Resp Resp Narrative: moderately diminished breath sounds bibasally, no wheezes or crackles. On 2L of oxygen by nasal canula Cardio regular rate, regular rhythm, S1 normal heart sound, S2 normal heart sound and no murmurs GI normal to inspection, nondistended, normoactive bowel sounds, soft to palpation, non-tender and non-distended Extremity Extremity Narrative: bilateral 2+ lower extremity pitting pedal edema, with erythema on the evangelista of the LLE, with pus filled blisters on evangelista. Mild differential warmth, no tenderness. Toenails are hyperkeratinized with apparent fungal infection Neuro oriented x3, CN's II-XII intact bilaterally, moves all extremities and no focal motor deficits Sensorium / Orientation: awake and alert Motor Exam: strength 5/5 throughout Psych affect normal Results Lab / Micro Data 08/09/24 14:50 08/09/24 14:50 Labs: Laboratory Results - last 24 hr 08/09/24 14:50: WBC 8.3, RBC 3.96 L, Hgb 10.1 L, Hct 33.4 L, MCV 84.3, MCH 25.5 L, MCHC 30.2 L, RDW Std Deviation 48.6 H, RDW Coeff of Thao 16.0 H, Plt Count 259, MPV 9.5, Immature Gran % (Auto) 1.000 H, Neut % (Auto) 81.1 H, Lymph % (Auto) 4.2 L, [place] % (Auto) 12.1 H, Eos % (Auto) 1.1, Baso % (Auto) 0.5, Absolute Neuts (auto) 6.7, Absolute Lymphs (auto) 0.35 L, Nucleated RBC % 0, Sodium 141, Potassium 3.5, Chloride 101, Carbon Dioxide 28.2, Anion Gap 12, BUN 52 H, Creatinine 2.30 H, Estim Creat Clear Calc 41.60 L, Est GFR (MDRD) Non-Af 30 L, BUN/Creatinine Ratio 22.6 H, Glucose 183 H, Calcium 10.6, Troponin T High Sens 123 H*, NT pro BNP II 5387 H Imaging Radiology Impression Chest X-Ray 08/09/24 15:00 IMPRESSION: Mild cardiomegaly and pulmonary vascular congestion. No acute findings. Reading Location: [facility] Assessment & Plan Assessment/Plan (1) Acute exacerbation of CHF (congestive heart failure): (2) Cellulitis and abscess of left leg: PLAN: Plan #Acute on chronic exacerbation of HF * Admit to PCU. Admitted with a complaint of worsening shortness of breath. Shortness of breath have been worsening over the last 6 weeks. He had assisted lower extremity pitting edema * proBNP is markedly elevated. Chest x-ray shows evidence of pulmonary vascular congestion * Diuresed with IV Lasix 40 mg twice daily. * Monitor intake and output. Fluid restriction 1500 cc daily. * Last echo in the records was from October 21, 2021 which showed EF of 55 to 60% with normal left ventricular systolic function and moderate mitral regurgitation. * Will order 2D echo * Titrate oxygen to maintain saturation above 90%. #CKD stage III: * Creatinine today is 2.3. His baseline has ranged from around 1.7-2.1. These were performed also it may be that his creatinine has trended up as a progression of his underlying CKD * Being diuresed with IV Lasix 40 mg twice daily so keep a close eye on his creatinine to make sure it does not worsen. If creatinine does trend upwards we will consult nephrology. * #Left lower extremity cellulitis * States as the socks was being taken off in his assisted living his skin was extensively torn off his left evangelista. * Has erythema and superficial pus filled blisters on the evangelista of his left leg * Outline area with a body marker. Consult wound care. * Started on IV Unasyn for cellulitis * #History of asthma and COPD with chronic respiratory failure: On 3 L of oxygen. Titrate oxygen to maintain saturation above 90%. Breathing treatments for the dilators. #History of CAD: On aspirin and Plavix as well as high intensity statin and fenofibrate #Hypertension: On hydralazine. Also metoprolol #Type 2 diabetes mellitus: On Lantus 33 units in the morning. Insulin sliding scale. ACT checks ACHS. Also on ranolazine DVT prophylaxis: Heparin CODE STATUS: Full code * Patient counseled extensively about different types of CODE STATUS including full code, DNR CCA and DNR CCA. * Patient elects to be full code. He initially said the nurse practitioner in his facility had spoken to him about CODE STATUS and he wanted to be full code without CPR. I explained to him that he could not be full code without CPR as the definition of full code until that he would get CPR. Patient rafal overt was initially leaning towards not having CPR done as he said most of his family had he only had a brother in [place]. However after thinking about it he decided that he would want at least to have a chance to live as he was not ready to let go. He therefore wanted to have CPR and intubation if needed. * CODE STATUS is therefore full code. * Total ppsc-oa-yghd time 17 minutes. Charges/Coding Visit Charges Inpatient E&M: 93473 Init Hosp L3 Procedures Hospitalists Procedures: 21615 Advncd Care Plan 30 Min
--- NOTE | 2024-08-09 16:40 | ED.RN ---
Unable to locate jail med list per pharmacy technician assistant, call placed to jail for another copy
--- NOTE | 2024-08-09 17:53 | ECHOD_ITS ---
Reason For Study Reason For Study: DYSPNEA Procedure This was a 2D Doppler, Color Flow transthoracic echocardiogram. Exam performed portable in patient room. Left Ventricle Normal left ventricle. The estimated ejection fraction is 55-60 %. Right Ventricle Normal right ventricle. Normal systolic function. Atria The left atrium is moderately enlarged. The right atrium is moderately enlarged. Mitral Valve The mitral valve is structurally normal. No prolapse or stenosis seen. Moderate (2+) mitral valve insufficiency. Tricuspid Valve Normal tricuspid valve. Mild tricuspid valve insufficiency. Aortic Valve Trisinus/trileaflet aortic valve. Mild (1+) aortic valve insufficiency. Pulmonic Valve The pulmonic valve is not well visualized. Great Vessels The aortic root is not well visualized. Pericardium/Pleural No pericardial effusion. MMode/2D Measurements & Calculations LVIDd: 5.4 cm IVSd: 1.5 cm LVOT diam: 2.3 cm LVIDs: 3.8 cm LVPWd: 1.5 cm LVOT area: 4.2 cm2 FS: 30.8 % Ao root diam: 3.5 cm LAV(MOD-bp): 77.7 ml LVAd ap4: 31.4 cm2 LAV(MOD-bp) Indexed: 32.6 ml/m2 LVLd ap4: 8.4 cm LAV(MOD-sp2): 57.3 ml EDV(MOD-sp4): 99.8 ml LAV(MOD-sp4): 92.0 ml EDV(sp4-el): 99.6 ml LVAs ap4: 18.8 cm2 LVLs ap4: 8.1 cm ESV(MOD-sp4): 38.1 ml ESV(sp4-el): 37.2 ml EF(MOD-sp4): 61.9 % EF(sp4-el): 62.7 % SV(MOD-sp4): 61.8 ml SV(sp4-el): 62.4 ml LA A4 area: 26.9 cm2 SI(MOD-sp4): 25.9 ml/m2 LA dimension(2D): 5.0 cm RA A4 area: 26.6 cm2 Time Measurements MV dec time: 0.14 sec Doppler Measurements & Calculations MV E max manuel: 70.0 cm/sec Lat Peak E' Manuel: 9.7 cm/sec Med Peak E' Manuel: 7.2 cm/sec MV A max manuel: 29.0 cm/sec E/E' lat: 7.3 E/E' med: 9.8 MV E/A: 2.4 Ao V2 max: 129.8 cm/sec LV V1 max: 93.4 cm/sec MV dec slope: 489.9 cm/sec2 Ao max P.7 mmHg LV V1 max P.5 mmHg Ao V2 mean: 88.1 cm/sec LV V1 mean P.1 mmHg Ao mean P.7 mmHg LV V1 mean: 69.7 cm/sec Ao V2 VTI: 26.9 cm LV V1 VTI: 15.4 cm AV (velocity ratio): 0.57 JENNIFER(I,D): 2.4 cm2 JENNIFER(V,D): 3.1 cm2 SV(LVOT): 65.6 ml PA V2 max: 83.7 cm/sec PA V2 mean: 59.3 cm/sec ECHO/Echo Complete Interpretation Summary The estimated ejection fraction is 55-60 %. Overall normal LV systolic function Moderate MR Mild to moderate TR Dilated IVC No significant change from previous echo. Ordering Physician: Chey Kearney Referring Physician: Chey Kearney Performed By: Marya Reich RCS
[2024-08-09 18:27] LABS: Troponin T High Sens 2 HR 122 ng/L (<=22)
[2024-08-09] MEDS: Ampicillin/Sulbactam 3 GM in 0.9% Normal Saline (100mL MB+) 100 ML IV ×2 (18:50→23:32)
[2024-08-09 20:09] LABS: Bedside Glucose 172 mg/dL (74-106)
--- NOTE | 2024-08-09 20:12 | EKG12_ITS ---
Test Reason : CP Blood Pressure : */* mmHG Vent. Rate : 76 BPM Atrial Rate : * BPM P-R Int : * ms QRS Dur : 110 ms QT Int : 374 ms P-R-T Axes : * -1 211 degrees QTcB Int : 420 ms Atrial fibrillation with frequent ventricular-paced complexes and with premature ventricular or aberrantly conducted complexes Septal infarct , age undetermined ST & T wave abnormality, consider inferolateral ischemia Abnormal ECG When compared with ECG of 09-Aug-2024 14:29, MANUAL COMPARISON REQUIRED DATA IS UNCONFIRMED Confirmed by BAILEE PIZANO, NII ([id number]), newspaper editor managing NAZ NORIEGA ([id number]) on 08/16/2024 12:43:02 PM Referred By: Chey Kearney Confirmed By: NII MOROCHO MD
[2024-08-09] MEDS: hydrALAZINE 20 MG/ML Vial 10 MG IV (20:41)
[2024-08-09] MEDS: 0.9% Saline Lock 10 ML Syringe IV (20:41)
[2024-08-09 20:48] LABS: Troponin T High Sens 4 HR 118 ng/L (<=22)
[2024-08-09] MEDS: Insulin Lispro 100 UNIT/ML INSULN.PEN SC (21:15)
[2024-08-09] MEDS: Heparin Injection (Vial) 5,000 UNIT/ML VIAL 5000 UNIT SC (21:15)
[2024-08-09 21:43] LABS: Bedside Glucose 152 mg/dL (74-106)
[2024-08-09] MEDS: Cinacalcet HCl 30 MG Tablet PO (23:32)
[2024-08-09] MEDS: hydrALAZINE 50 MG Tablet 100 MG PO (23:32)
[2024-08-09] MEDS: Metoprolol(XL)Succ 50 MG Tablet PO (23:32)
[2024-08-09] MEDS: Ranolazine 500 MG Tablet PO (23:32)
[2024-08-09] MEDS: Sucralfate 1 GM Tablet PO (23:32)
[2024-08-09] MEDS: oxyCODONE 5 MG Tablet PO (23:38)
[2024-08-10] VITALS (17 sets, daily range): BP systolic 112–153; BP diastolic 73–87; PULSE 70–83; RESP 16–22; TEMP 35.9–37.2; O2SAT 94–98
[2024-08-10] MEDS: hydrALAZINE 50 MG Tablet 100 MG PO ×3 (06:17→20:35)
[2024-08-10] MEDS: Heparin Injection (Vial) 5,000 UNIT/ML VIAL 5000 UNIT SC ×3 (06:17→20:34)
[2024-08-10] MEDS: Sucralfate 1 GM Tablet PO ×4 (06:17→20:35)
[2024-08-10] MEDS: Ampicillin/Sulbactam 3 GM in 0.9% Normal Saline (100mL MB+) 100 ML IV ×4 (06:17→23:31)
[2024-08-10] MEDS: 0.9% Saline Lock 10 ML Syringe IV ×4 (06:20→22:53)
[2024-08-10] MEDS: oxyCODONE 5 MG Tablet PO ×3 (06:20→23:36)
[2024-08-10] MEDS: Budesonide Respules 0.5 MG/2 ML AMPUL.NEB. INHALATION ×2 (06:53→20:52)
--- NOTE | 2024-08-10 08:30 | CASEMGMT ---
Addendum entered by Margarita Toscano 08/10/24 13:59: Social Work Chyna at [facility] did get back to , said pt is waiting for the [place] Medicaid Waiver to come through so he can go to the [facility] at [facility]. SW let pt know, pt states understanding. JARRETT Dumont Addendum entered by Margarita Toscano 08/10/24 09:09: Social Work Chyna from [facility] responded, pt has a bed hold and can return to [facility] when ready, if pt needs skilled time they can also submit for precert. She is not certain what is the holdup w/AL, said she would check w/the facility. Green sheet placed on chart w/transport, though as per physician it is anticipated pt will be here through the weekend. SW will continue to follow. JARRETT Dumont Original Note: Social Work SW spoke w/pt, confirmed plan is to return to [facility] at discharge, SNF list is not needed at this time. Pt explained he had been moved to [facility] at one point, but then was moved back to the SNF, due to insurance. Pt states he does not fully understand as he was approved for Medicaid, has been told that he has not been able to move back due to the government. Pt would like to get to the [facility], but is agreeable to return to SNF from here. SW explained will ask [facility] why he has not been moved back to the AL. SW sent updates to [facility] via [employer]. SW inquired if pt can return to SNF, if precert is needed, and what the holdup is regarding getting him back to the [facility]. SW will continue to follow. JARRETT Dumont
[2024-08-10] MEDS: Insulin Lispro 100 UNIT/ML INSULN.PEN SC ×4 (08:33→20:36)
[2024-08-10] MEDS: Insulin Glargine-YFGN 100 UNIT/ML Pen 33 UNIT SC (08:34)
[2024-08-10] MEDS: Furosemide 40 MG/4 ML Vial IV ×2 (08:35→17:14)
[2024-08-10] MEDS: Fenofibrate 145 MG Tablet PO (08:35)
[2024-08-10] MEDS: Potassium Chloride Oral Tablet 20 MEQ PO ×2 (08:35→17:13)
[2024-08-10] MEDS: Paroxetine 20 MG Tablet 40 MG PO (08:37)
[2024-08-10] MEDS: Clopidogrel Bisulfate 75 MG Tablet PO (08:37)
[2024-08-10] MEDS: Pantoprazole Sodium 40 MG Tablet PO (08:38)
[2024-08-10] MEDS: Ranolazine 500 MG Tablet PO ×2 (08:38→20:38)
[2024-08-10] MEDS: Cinacalcet HCl 30 MG Tablet PO ×2 (08:39→20:38)
[2024-08-10] MEDS: Metoprolol(XL)Succ 50 MG Tablet PO ×2 (08:40→20:39)
--- NOTE | 2024-08-10 08:58 | VDLE_ITS ---
Reason For Study Reason For Study: Bilateral leg swelling RIGHT LEFT GSV is normal. GSV is normal. CFV is compressible, spontaneous, phasic, competent CFV is compressible, spontaneous, phasic, competent, and demonstrates normal augmentation. and demonstrates normal augmentation. FV is compressible, spontaneous, phasic, competent FV is compressible, spontaneous, phasic, competent and demonstrates normal augmentation. and demonstrates normal augmentation. POP V is compressible, spontaneous, phasic, competent POP V is compressible, spontaneous, phasic, competent and demonstrates normal augmentation. and demonstrates normal augmentation. T/P Trunk is compressible. T/P Trunk is compressible. PTV is compressible. PTV is compressible. RT PerV is compressible. LT PerV is compressible. Procedure This is a venous duplex using B-mode, color flow and spectral Doppler. Exam performed portable in patient room. A preliminary report was called and/or faxed to [facility]. VL/Venous Duplex US - Deondre Extrem Interpretation Summary Deep veins of the lower extremities are bilaterally patent and compressible seg mentally. There is no evidence of deep vein thrombosis on either side. Valvular competence appears intact within the p roximal deep venous systems bilaterally. The great saphenous veins appear bilaterally patent and compressible segmentall y. Ordering Physician: Chey Kearney Referring Physician: Hank Negrete Performed By: Priya Darby RVT
[2024-08-10 09:01] LABS: Absolute Lymphocyte Count 0.38 X10^3/uL (0.83-4.51); Absolute Neutrophil Count 7.6 X10^3/uL (2.0-7.7); Basophil# 0.04 X10^3/uL; Basophil% 0.4 % (0-1); Eosinophil# 0.13 X10^3/uL; Eosinophils% 1.4 % (0-5); Hematocrit 34.6 % (40-54); Hemoglobin 10.5 g/dL (13.0-16.5); Lymphocyte # 0.38 X10^3/ul (0.83-4.51); Lymphocyte % 4.1 % (19-41); Mean Corp Hgb Conc 30.3 g/dL (32-36); Mean Corpuscular Hgb 25.7 pg (27.0-32.0); Mean Corpuscular Volume 84.6 fL (80-94); Mean Platelet Vol. 9.4 fl (6.2-12.0); Monocyte# 1.06 X10^3/uL; Monocyte% 11.4 % (0-10); NRBC Flagged by Analyzer 0 % (0-5); Neutrophil % 82.1 % (47-70); POSITIVE DIFFERENTIAL YES; Platelet Count 289 K/mm3 (150-450); RBC Distribution Width CV 16.1 % (11.6-14.6); RBC Distribution Width SD 49.9 fl (35.1-43.9); Red Blood Count 4.09 M/mm3 (4.6-6.2); White Blood Count 9.3 K/mm3 (4.4-11.0)
[2024-08-10 09:28] LABS: Anion Gap 12 (5-15); BUN 47 mg/dL (4-19); Calcium,Total 10.8 mg/dL (7.6-11.0); Carbon Dioxide 27.4 mmol/L (21.0-32.0); Chloride 103 mmol/L (98-108); Creatinine, Serum 2.03 mg/dL (0.70-1.20); EST Glomerular Filtration Rate 35 (>60); Estimated Creatinine Clearance 46.66 ml/min (50-250); Glucose 128 mg/dL (70-99); Potassium 3.4 mmol/L (3.3-5.1); Sodium Level 142 mmol/L (133-145)
[2024-08-10 11:07] LABS: Bedside Glucose 132 mg/dL (74-106)
--- NOTE | 2024-08-10 11:47 | PN_ITS ---
Subjective Subjective Patient seen and examined. He said he felt his breathing had improved today he felt much better. He is on 3 L of oxygen. He denied any cough or chest pain, palpitations, dizziness, nausea vomiting or any other symptoms. Review of systems is otherwise negative. Objective Data Objective Data Vital Signs: Vital Signs Temp Pulse Resp BP Pulse Ox O2 Del Method O2 Flow Rate 98.4 F 75 20 H 143/84 H 97 Nasal Cannula 3 08/10/24 08:30 08/10/24 08:40 08/10/24 08:30 08/10/24 08:30 08/10/24 08:30 08/10/24 08:30 08/10/24 08:30 Oxygen Flow Rate (L/min) 3 Oxygen Delivery Method Nasal Cannula Weight: 273 lb 8 oz Body Mass Index (BMI) 39.2 Intake & Output: Intake and Output for Last 24 Hours 08/08/24 08/09/24 08/10/24 23:59 23:59 23:59 Intake Total 112 / 112 224 / 224 Output Total 1900 / 1900 Balance 112 / -1088 -1676 / -1676 Lab / Micro Data 08/10/24 08:44 08/10/24 08:44 Labs: Laboratory Results - last 24 hr 08/09/24 14:50: WBC 8.3, RBC 3.96 L, Hgb 10.1 L, Hct 33.4 L, MCV 84.3, MCH 25.5 L, MCHC 30.2 L, RDW Std Deviation 48.6 H, RDW Coeff of Thao 16.0 H, Plt Count 259, MPV 9.5, Immature Gran % (Auto) 1.000 H, Neut % (Auto) 81.1 H, Lymph % (Auto) 4.2 L, [place] % (Auto) 12.1 H, Eos % (Auto) 1.1, Baso % (Auto) 0.5, Absolute Neuts (auto) 6.7, Absolute Lymphs (auto) 0.35 L, Nucleated RBC % 0, Sodium 141, Potassium 3.5, Chloride 101, Carbon Dioxide 28.2, Anion Gap 12, BUN 52 H, Creatinine 2.30 H, Estim Creat Clear Calc 41.60 L, Est GFR (MDRD) Non-Af 30 L, BUN/Creatinine Ratio 22.6 H, Glucose 183 H, Calcium 10.6, Troponin T High Sens 123 H*, NT pro BNP II 5387 H 08/09/24 17:14: POC Glucose 172 H 08/09/24 17:48: Troponin T Hi Sens 2 Hr 122 H* 08/09/24 20:14: Troponin T Hi Sens 4Hr 118 H* 08/09/24 21:12: POC Glucose 152 H 08/10/24 08:29: POC Glucose 132 H 08/10/24 08:44: WBC 9.3, RBC 4.09 L, Hgb 10.5 L, Hct 34.6 L, MCV 84.6, MCH 25.7 L, MCHC 30.3 L, RDW Std Deviation 49.9 H, RDW Coeff of Thao 16.1 H, Plt Count 289, MPV 9.4, Immature Gran % (Auto) 0.600, Neut % (Auto) 82.1 H, Lymph % (Auto) 4.1 L, [place] % (Auto) 11.4 H, Eos % (Auto) 1.4, Baso % (Auto) 0.4, Absolute Neuts (auto) 7.6, Absolute Lymphs (auto) 0.38 L, Nucleated RBC % 0, Sodium 142, Potassium 3.4, Chloride 103, Carbon Dioxide 27.4, Anion Gap 12, BUN 47 H, C reatinine 2.03 H, Estim Creat Clear Calc 46.66 L, Est GFR (MDRD) Non-Af 35 L, B UN/Creatinine Ratio 23.0 H, Glucose 128 H, Calcium 10.8 Radiography Diagnostic Testing: Radiology Impression Chest X-Ray 08/09/24 15:00 IMPRESSION: Mild cardiomegaly and pulmonary vascular congestion. No acute findings. Reading Location: [facility] Physical Exam Const alert, oriented x3 and no apparent distress Constitutional Narrative: class III obesity General Appearance: cooperative and well developed HEENT normocephalic, head/scalp atraumatic, hearing grossly normal bilaterally and moist oral mucous membranes Eyes PERRL, EOMs intact bilaterally and conjunctivae normal Neck no lymphadenopathy and supple Resp Resp Narrative: moderately diminished breath sounds bibasally, no wheezes or crackles. On 3L of oxygen by nasal canula Cardio regular rate, regular rhythm, S1 normal heart sound, S2 normal heart sound and no murmurs GI normal to inspection, nondistended, normoactive bowel sounds, soft to palpation, non-tender and non-distended Extremity normal to inspection, full ROM and no clubbing, cyanosis or edema Extremity Narrative: bilateral 2+ lower extremity pitting pedal edema, with erythema on the evangelista of the LLE, with pus filled blisters on evangelista. Mild differential warmth, no tenderness. Toenails are hyperkeratinized with apparent fungal infection Neuro oriented x3, CN's II-XII intact bilaterally, moves all extremities and no focal motor deficits Sensorium / Orientation: awake and alert Motor Exam: strength 5/5 throughout Psych thought process normal, cooperative and affect normal Appearance: appropriate Assessment & Plan Assessment/Plan (1) Acute exacerbation of CHF (congestive heart failure): (2) Cellulitis and abscess of left leg: PLAN: Plan #Acute on chronic exacerbation of HF * Patient feels much better today. Feels his breathing is improving though he is on 3 L of oxygen still. * Continue diuresis with IV Lasix 40 mg twice daily. * 2D echo ordered and pending. * Titrate oxygen to maintain saturation above 90%. * Duplex of the lower extremities ordered to rule out DVT due to edema of both lower extremities. * * #Elevated troponins. * Initial troponin was 123 and trended down to 118. * He did not have any chest pain and in light of his underlying CKD and elevated proBNP, I suspect this likely a type II non-STEMI due to demand ischemia as well as decreased clearance from kidneys. * 2D echo ordered and is pending. #CKD stage III: * Creatinine has trended down slightly today to 2.03 from 2.3 yesterday. His baseline is stated appear to be around 1.7-2.1 labs from 2023 so there is likely progression of his underlying CKD. * Continue monitoring creatinine * * #Left lower extremity cellulitis * States as the socks was being taken off in his assisted living his skin was extensively torn off his left evangelista. * Has erythema and superficial pus filled blisters on the evangelista of his left leg * Outline area with a body marker. Consult wound care. * on IV Unasyn for cellulitis. Eryrthema of LE has improved. * #History of asthma and COPD with chronic respiratory failure: * On 3 L of oxygen. Titrate oxygen to maintain saturation above 90%. * Breathing treatments with bronchodilators. #History of CAD: On aspirin and Plavix as well as high intensity statin and fenofibrate #Hypertension: On hydralazine. Also metoprolol #Type 2 diabetes mellitus: On Lantus 33 units in the morning. Insulin sliding scale. ACT checks ACHS. Also on ranolazine DVT prophylaxis: Heparin CODE STATUS: Full code * Charges/Coding Visit Charges Inpatient E&M: 03050 Subs Hosp L2
[2024-08-10] MEDS: Polyethylene Glycol 3350 17 GM PACKET PO (12:03)
[2024-08-10] MEDS: Insulin Lispro 100 UNIT/ML INSULN.PEN 6 UNIT SC (12:06)
[2024-08-10] MEDS: Morphine 2 MG/ML Syringe 1 MG IV ×3 (12:07→22:52)
[2024-08-10] MEDS: Senna Tablet 2 TABLET PO (12:16)
[2024-08-10 12:17] LABS: Bedside Glucose 173 mg/dL (74-106)
[2024-08-10] MEDS: Ferrous Sulfate 325 MG Tablet PO (14:15)
[2024-08-10 16:49] LABS: Bedside Glucose 179 mg/dL (74-106)
[2024-08-10] MEDS: Insulin Lispro 100 UNIT/ML INSULN.PEN 8 UNIT SC (17:12)
[2024-08-10 20:23] LABS: Bedside Glucose 163 mg/dL (74-106)
[2024-08-11] VITALS (15 sets, daily range): BP systolic 134–156; BP diastolic 76–91; PULSE 67–75; RESP 18–20; TEMP 35.9–36.9; O2SAT 95–98
[2024-08-11] MEDS: hydrALAZINE 50 MG Tablet 100 MG PO ×3 (04:54→20:40)
[2024-08-11] MEDS: Heparin Injection (Vial) 5,000 UNIT/ML VIAL 5000 UNIT SC ×3 (04:56→20:41)
[2024-08-11] MEDS: Ampicillin/Sulbactam 3 GM in 0.9% Normal Saline (100mL MB+) 100 ML IV ×3 (04:56→17:44)
[2024-08-11 06:22] LABS: Absolute Lymphocyte Count 0.32 X10^3/uL (0.83-4.51); Absolute Neutrophil Count 6.5 X10^3/uL (2.0-7.7); Basophil# 0.06 X10^3/uL; Basophil% 0.8 % (0-1); Eosinophil# 0.15 X10^3/uL; Eosinophils% 1.9 % (0-5); Hematocrit 34.1 % (40-54); Hemoglobin 10.3 g/dL (13.0-16.5); Lymphocyte # 0.32 X10^3/ul (0.83-4.51); Mean Corp Hgb Conc 30.2 g/dL (32-36); Mean Corpuscular Hgb 25.4 pg (27.0-32.0); Mean Platelet Vol. 9.5 fl (6.2-12.0); Monocyte# 0.87 X10^3/uL; Monocyte% 10.9 % (0-10); NRBC Flagged by Analyzer 0.3 % (0-5); Neutrophil # 6.49 X10^3/uL (2.7-7.7); Neutrophil % 81.6 % (47-70); POSITIVE DIFFERENTIAL YES; Platelet Count 269 K/mm3 (150-450); RBC Distribution Width CV 16.1 % (11.6-14.6); RBC Distribution Width SD 48.8 fl (35.1-43.9); Red Blood Count 4.06 M/mm3 (4.6-6.2)
[2024-08-11] MEDS: Sucralfate 1 GM Tablet PO ×4 (06:40→20:40)
[2024-08-11 07:00] LABS: Bedside Glucose 119 mg/dL (74-106)
[2024-08-11 07:04] LABS: Anion Gap 13 (5-15); BUN 44 mg/dL (4-19); BUN/Creat Ratio 22.7 RATIO (10-20); Calcium,Total 10.3 mg/dL (7.6-11.0); Carbon Dioxide 27.1 mmol/L (21.0-32.0); Chloride 103 mmol/L (98-108); Creatinine, Serum 1.94 mg/dL (0.70-1.20); EST Glomerular Filtration Rate 37 (>60); Estimated Creatinine Clearance 48.83 ml/min (50-250); Glucose 100 mg/dL (70-99); Potassium 3.4 mmol/L (3.3-5.1); Sodium Level 143 mmol/L (133-145)
[2024-08-11] MEDS: Budesonide Respules 0.5 MG/2 ML AMPUL.NEB. INHALATION ×2 (07:15→20:34)
[2024-08-11] MEDS: Potassium Chloride Oral Tablet 20 MEQ PO ×2 (08:28→16:55)
[2024-08-11] MEDS: Fenofibrate 145 MG Tablet PO (08:28)
[2024-08-11] MEDS: Insulin Lispro 100 UNIT/ML INSULN.PEN SC (08:29)
[2024-08-11] MEDS: oxyCODONE 5 MG Tablet PO ×2 (08:45→15:43)
[2024-08-11] MEDS: 0.9% Saline Lock 10 ML Syringe IV ×5 (08:46→20:46)
[2024-08-11] MEDS: Insulin Glargine-YFGN 100 UNIT/ML Pen 33 UNIT SC (09:11)
[2024-08-11] MEDS: Metoprolol(XL)Succ 50 MG Tablet PO ×2 (09:13→20:40)
[2024-08-11] MEDS: Ranolazine 500 MG Tablet PO ×3 (09:14→20:40)
[2024-08-11] MEDS: Cinacalcet HCl 30 MG Tablet PO ×2 (09:14→20:41)
[2024-08-11] MEDS: Pantoprazole Sodium 40 MG Tablet PO (09:15)
[2024-08-11] MEDS: Paroxetine 20 MG Tablet 40 MG PO (09:15)
[2024-08-11] MEDS: Clopidogrel Bisulfate 75 MG Tablet PO (09:15)
[2024-08-11] MEDS: Furosemide 40 MG/4 ML Vial IV ×2 (09:18→17:37)
--- NOTE | 2024-08-11 09:49 | PCM.PROGNOTE ---
Subjective Subjective Patient seen and examined. He had no active complaints and felt better. Review of systems is otherwise negative. Duplex of lower extremities was negative for any evidence of DVT. He is on 2L of oxygen today. Objective Data Objective Data Vital Signs: Vital Signs Temp Pulse Resp BP Pulse Ox O2 Del Method O2 Flow Rate 98.4 F 72 20 H 147/76 H 98 Nasal Cannula 2 08/11/24 08:23 08/11/24 09:13 08/11/24 08:23 08/11/24 09:13 08/11/24 08:23 08/11/24 08:23 08/11/24 09:38 Oxygen Flow Rate (L/min) 2 Oxygen Delivery Method Nasal Cannula Weight: 273 lb 8 oz Body Mass Index (BMI) 39.2 Intake & Output: Intake and Output for Last 24 Hours 08/09/24 08/10/24 08/11/24 23:59 23:59 23:59 Intake Total 112 / 112 1308 / 1308 474 / 474 Output Total 2800 / 2800 400 / 400 Balance 112 / -1088 -1492 / -1492 74 / 74 Lab / Micro Data 08/11/24 05:49 08/11/24 05:49 Labs: Laboratory Results - last 24 hr 08/10/24 08:29: POC Glucose 132 H 08/10/24 11:41: POC Glucose 173 H 08/10/24 16:28: POC Glucose 179 H 08/10/24 19:58: POC Glucose 163 H 08/11/24 05:49: WBC 8.0, RBC 4.06 L, Hgb 10.3 L, Hct 34.1 L, MCV 84.0, MCH 25.4 L, MCHC 30.2 L, RDW Std Deviation 48.8 H, RDW Coeff of Thao 16.1 H, Plt Count 269, MPV 9.5, Immature Gran % (Auto) 0.800, Neut % (Auto) 81.6 H, Lymph % (Auto) 4.0 L, [place] % (Auto) 10.9 H, Eos % (Auto) 1.9, Baso % (Auto) 0.8, Absolute Neuts (auto) 6.5, Absolute Lymphs (auto) 0.32 L, Nucleated RBC % 0.3, Sodium 143, Potassium 3.4, Chloride 103, Carbon Dioxide 27.1, Anion Gap 13, BUN 44 H, Creatinine 1.94 H, Estim Creat Clear Calc 48.83 L, Est GFR (MDRD) Non-Af 37 L, BUN/Creatinine Ratio 22.7 H, Glucose 100 H, Calcium 10.3 08/11/24 06:39: POC Glucose 119 H Radiography Diagnostic Testing: Radiology Impression Echocardiogram 08/09/24 17:53 Interpretation Summary The estimated ejection fraction is 55-60 %. Overall normal LV systolic function Moderate MR Mild to moderate TR Dilated IVC No significant change from previous echo. Ordering Physician: Chey Kearney Referring Physician: Chey Kearney Performed By: Marya Reich RCS Venous Doppler Study 08/10/24 08:58 Interpretation Summary Deep veins of the lower extremities are bilaterally patent and compressible segmentally. There is no evidence of deep vein thrombosis on either side. Valvular competence appears intact within the proximal deep venous systems bilaterally. The great saphenous veins appear bilaterally patent and compressible segmentally. Ordering Physician: Chey Kearney Referring Physician: Hank Negrete Performed By: Priya Darby RVT Physical Exam Const alert, oriented x3 and no apparent distress Constitutional Narrative: class III obesity General Appearance: cooperative and well developed HEENT normocephalic, head/scalp atraumatic, hearing grossly normal bilaterally and moist oral mucous membranes Eyes PERRL, EOMs intact bilaterally and conjunctivae normal Neck no lymphadenopathy and supple Resp Resp Narrative: moderately diminished breath sounds bibasally, no wheezes or crackles. On 2 L of oxygen by nasal canula Cardio regular rate, regular rhythm, S1 normal heart sound, S2 normal heart sound and no murmurs GI normal to inspection, nondistended, normoactive bowel sounds, soft to palpation, non-tender and non-distended Extremity normal to inspection, full ROM and no clubbing, cyanosis or edema Extremity Narrative: bilateral 2+ lower extremity pitting pedal edema, with erythema on the evangelista of the LLE. Erythema on the evangelista has improved markedly. Skin General Skin Exam: no breakdown Neuro oriented x3, CN's II-XII intact bilaterally, moves all extremities and no focal motor deficits Sensorium / Orientation: awake and alert Motor Exam: strength 5/5 throughout Psych thought process normal, cooperative and affect normal Appearance: appropriate Assessment & Plan Assessment/Plan (1) Acute exacerbation of CHF (congestive heart failure): (2) Cellulitis and abscess of left leg: PLAN: Plan #Acute on chronic exacerbation of HF Patient feels much better today. Feels his breathing is improving though he is on 3 L of oxygen still. Continue diuresis with IV Lasix 40 mg twice daily. 2D echo showed EF of 55 to 60% with left atrium moderately enlarged and overall normal ventricular systolic function as well as moderate MR and mild to moderate TR and dilated IVC. Titrate oxygen to maintain saturation above 90%. Duplex of the lower extremities ordered to rule out DVT due to edema of both lower extremities. #Elevated troponins. Initial troponin was 123 and trended down to 118. He did not have any chest pain and in light of his underlying CKD and elevated proBNP, I suspect this likely a type II non-STEMI due to demand ischemia as well as decreased clearance from kidneys. 2D echo as above based on echo no further workup needed. #CKD stage III: Creatinine is down to 1.94. His baseline is stated appear to be around 1.7-2.1 labs from 2023 so there is likely progression of his underlying CKD. Continue monitoring creatinine #Left lower extremity cellulitis States as the socks was being taken off in his assisted living his skin was extensively torn off his left evangelista. Has erythema and superficial pus filled blisters on the evangelista of his left leg Outline area with a body marker. Consult wound care. on IV Unasyn for cellulitis. Erythema of LE has largely resolved. #History of asthma and COPD with chronic respiratory failure: On 3 L of oxygen. Titrate oxygen to maintain saturation above 90%. Breathing treatments with bronchodilators. #History of CAD: On aspirin and Plavix as well as high intensity statin and fenofibrate. lso on ranolazine #Hypertension: On hydralazine. Also metoprolol #Type 2 diabetes mellitus: On Lantus 33 units in the morning. Insulin sliding scale. ACT checks ACHS. DVT prophylaxis: Heparin CODE STATUS: Full code Charges/Coding Visit Charges Inpatient E&M: 65598 Subs Hosp L2
[2024-08-11 12:06] LABS: Bedside Glucose 142 mg/dL (74-106)
[2024-08-11] MEDS: Ferrous Sulfate 325 MG Tablet PO (12:42)
[2024-08-11] MEDS: Insulin Lispro 100 UNIT/ML INSULN.PEN 6 UNIT SC (12:42)
[2024-08-11 16:36] LABS: Bedside Glucose 125 mg/dL (74-106)
[2024-08-11] MEDS: Insulin Lispro 100 UNIT/ML INSULN.PEN 8 UNIT SC (16:56)
[2024-08-11] MEDS: Morphine 2 MG/ML Syringe 1 MG IV (20:46)
[2024-08-11 21:59] LABS: Bedside Glucose 106 mg/dL (74-106)
[2024-08-12] VITALS (10 sets, daily range): BP systolic 133–155; BP diastolic 71–99; PULSE 70–88; RESP 18–20; TEMP 36.2–36.7; O2SAT 91–98
[2024-08-12] MEDS: oxyCODONE 5 MG Tablet PO ×2 (00:28→09:28)
[2024-08-12] MEDS: Ampicillin/Sulbactam 3 GM in 0.9% Normal Saline (100mL MB+) 100 ML IV ×3 (00:31→13:33)
[2024-08-12] MEDS: 0.9% Saline Lock 10 ML Syringe IV ×3 (00:31→09:36)
[2024-08-12] MEDS: Morphine 2 MG/ML Syringe 1 MG IV (03:26)
--- NOTE | 2024-08-12 03:36 | NURSING ---
Pt frequently c/o generalized pain, pain high 9 on 0-10 scale, worse in shoulders and back. Multiple non-medication interventions applied along with PRN ordered medications. Pt is resting in bed, no acute s/s of distress noted. VSS, AF, supplemental O2 @ 2L sats 96%. Currently not interested in applying BiPAP. Support and education provided. No additional needs or concerns verbalized or identified.
[2024-08-12 06:00] LABS: Absolute Lymphocyte Count 0.32 X10^3/uL (0.83-4.51); Absolute Neutrophil Count 6.9 X10^3/uL (2.0-7.7); Basophil# 0.05 X10^3/uL; Basophil% 0.6 % (0-1); Eosinophil# 0.11 X10^3/uL; Eosinophils% 1.3 % (0-5); Hematocrit 32.2 % (40-54); Hemoglobin 9.9 g/dL (13.0-16.5); Lymphocyte # 0.32 X10^3/ul (0.83-4.51); Lymphocyte % 3.8 % (19-41); Mean Corp Hgb Conc 30.7 g/dL (32-36); Mean Corpuscular Hgb 25.6 pg (27.0-32.0); Mean Corpuscular Volume 83.2 fL (80-94); Mean Platelet Vol. 9.3 fl (6.2-12.0); Monocyte# 0.91 X10^3/uL; Monocyte% 10.9 % (0-10); NRBC Flagged by Analyzer 0 % (0-5); Neutrophil # 6.89 X10^3/uL (2.7-7.7); Neutrophil % 82.6 % (47-70); POSITIVE DIFFERENTIAL YES; Platelet Count 272 K/mm3 (150-450); RBC Distribution Width SD 48.4 fl (35.1-43.9); Red Blood Count 3.87 M/mm3 (4.6-6.2); White Blood Count 8.4 K/mm3 (4.4-11.0)
[2024-08-12] MEDS: hydrALAZINE 50 MG Tablet 100 MG PO ×2 (06:42→13:33)
[2024-08-12] MEDS: Heparin Injection (Vial) 5,000 UNIT/ML VIAL 5000 UNIT SC ×2 (06:42→13:37)
[2024-08-12] MEDS: Sucralfate 1 GM Tablet PO ×2 (06:43→11:34)
[2024-08-12 07:00] LABS: Anion Gap 13 (5-15); BUN 40 mg/dL (4-19); BUN/Creat Ratio 20.7 RATIO (10-20); Calcium,Total 10.2 mg/dL (7.6-11.0); Carbon Dioxide 27.9 mmol/L (21.0-32.0); Chloride 101 mmol/L (98-108); Creatinine, Serum 1.91 mg/dL (0.70-1.20); EST Glomerular Filtration Rate 38 (>60); Estimated Creatinine Clearance 49.59 ml/min (50-250); Glucose 52 mg/dL (70-99); Potassium 3.5 mmol/L (3.3-5.1); Sodium Level 142 mmol/L (133-145)
[2024-08-12] MEDS: Budesonide Respules 0.5 MG/2 ML AMPUL.NEB. INHALATION (07:25)
--- NOTE | 2024-08-12 08:54 | CASEMGMT ---
Discharge Planning Updates sent to [facility]. Jennifer Stringer DC Planning Asst.
[2024-08-12 09:02] LABS: Bedside Glucose 78 mg/dL (74-106)
[2024-08-12 09:02] LABS: Bedside Glucose 55 mg/dL (74-106)
[2024-08-12] MEDS: Metoprolol(XL)Succ 50 MG Tablet PO (09:29)
[2024-08-12] MEDS: Potassium Chloride Oral Tablet 20 MEQ PO (09:30)
[2024-08-12] MEDS: Fenofibrate 145 MG Tablet PO (09:30)
[2024-08-12] MEDS: Cinacalcet HCl 30 MG Tablet PO (09:31)
[2024-08-12] MEDS: Insulin Glargine-YFGN 100 UNIT/ML Pen 33 UNIT SC (09:31)
[2024-08-12] MEDS: Clopidogrel Bisulfate 75 MG Tablet PO (09:31)
[2024-08-12] MEDS: Paroxetine 20 MG Tablet 40 MG PO (09:31)
[2024-08-12] MEDS: Furosemide 40 MG/4 ML Vial IV (09:35)
[2024-08-12] MEDS: Pantoprazole Sodium 40 MG Tablet PO (09:36)
[2024-08-12] MEDS: Insulin Lispro 100 UNIT/ML INSULN.PEN SC (11:34)
[2024-08-12] MEDS: Ferrous Sulfate 325 MG Tablet PO (11:34)
[2024-08-12] MEDS: Insulin Lispro 100 UNIT/ML INSULN.PEN 6 UNIT SC (11:35)
[2024-08-12 12:04] LABS: Bedside Glucose 191 mg/dL (74-106)
--- NOTE | 2024-08-12 13:40 | TREXTCAR_ITS ---
Diet Diet Order/Speech Therapy: 08/09/24 17:51 Diet: Cardiac: Calorie-Controlled Type of Dietary Supplement:: Glucerna Shake Diet Comments: 120 ml glucerna shake tid w/ meals How many daily calories?: 1800 calorie Routine Orders/Code Status Enema Type: Fleetz Enema Frequency: Daily PRN Suppository Frequency: Daily PRN Code Status: Full Code DC O2, CPAP, BIPAP needs Home O2 Discharge instructions: Yes Type of respiratory needs?: Oxygen Oxygen frequency: Continuous Continuous oxygen liters per minute: 3 Wound(s) Left Big Toe: Wound Type: Abrasion Therapies Weight Bearing: Weight bearing as tolerated Extremity Affected:: Bilateral Lower Physical Therapy: Eval and Treat Occupational Therapy: Eval and Treat Problem/Diagnosis (1) Acute exacerbation of CHF (congestive heart failure): Status: Chronic Code(s): I50.9 - Heart failure, unspecified (2) Cellulitis and abscess of left leg: Status: Acute Code(s): L03.116 - Cellulitis of left lower limb; L02.416 - Cutaneous abscess of left lower limb Plan #Acute on chronic exacerbation of HF * Patient feels much better today. Feels his breathing is improving though he is on 3 L of oxygen still. * Continue diuresis with IV Lasix 40 mg twice daily. * 2D echo showed EF of 55 to 60% with left atrium moderately enlarged and overall normal ventricular systolic function as well as moderate MR and mild to moderate TR and dilated IVC. * Titrate oxygen to maintain saturation above 90%. * Duplex of the lower extremities ordered to rule out DVT due to edema of both l ower extremities. * * #Elevated troponins. * Initial troponin was 123 and trended down to 118. * He did not have any chest pain and in light of his underlying CKD and elevated proBNP, I suspect this likely a type II non-STEMI due to demand ischemia as well as decreased clearance from kidneys. * 2D echo as above based on echo no further workup needed. * #CKD stage III: * Creatinine is down to 1.94. His baseline is stated appear to be around 1.7- 2.1 labs from 2023 so there is likely progression of his underlying CKD. * Continue monitoring creatinine * * #Left lower extremity cellulitis * States as the socks was being taken off in his assisted living his skin was extensively torn off his left evangelista. * Has erythema and superficial pus filled blisters on the evangelista of his left leg * Outline area with a body marker. Consult wound care. * on IV Unasyn for cellulitis. Erythema of LE has largely resolved. * #History of asthma and COPD with chronic respiratory failure: * On 3 L of oxygen. Titrate oxygen to maintain saturation above 90%. * Breathing treatments with bronchodilators. #History of CAD: On aspirin and Plavix as well as high intensity statin and fenofibrate. lso on ranolazine #Hypertension: On hydralazine. Also metoprolol #Type 2 diabetes mellitus: On Lantus 33 units in the morning. Insulin sliding scale. ACT checks ACHS. DVT prophylaxis: Heparin CODE STATUS: Full code * Allergies/Procedures Done in Hospital Allergies No Known Allergies Allergy (Verified 08/09/24 14:13) Procedures: 2-D Echocardiogram Type of Care/Length of Stay Estimated LOS: Convalescent Care Less Than 30 days Type of Care Needed: Skilled Rehab Potential: Fair Prognosis: Fair Additional Orders/Day of Discharge Day of Discharge: 08/12/24 Dietary and Speech Recommendations Dietitian Recommendations/Changes: Will continue 1800 laverne Cardiac diet - consider fluid restriction d/t CHF? Will order 4 oz glucerna shake tid w/ meals for increased nutrition if consumed. Then d/c GS when po intake consistently improved. Continue to monitor for changes in pt nutritional status and make additional rec /provide diet education if desired. Discharge Plan Admission Admit Date/Time: 08/09/24 16:23 Primary Reason for Your Visit: acute exacerbation of heart failure Attending Provider: Chey Kearney Primary Care Provider: Hank Negrete Instructions Patient Instructions: Coping with Heart Failure Discharge Orders/Prescriptions Prescriptions: New doxycycline hyclate 100 mg tablet 100 mg PO BID Qty: 10 0RF Continued mineral oil [Fleet Mineral Oil] Enema 118 ml TN DAILY PRN (Reason: constipation) Rx Instructions: discard any unused portion magnesium hydroxide [Milk of Magnesia] 400 mg/5 mL suspension 30 ml PO DAILY PRN (Reason: constipation) bisacodyl 10 mg suppository 10 mg TN DAILY PRN (Reason: constipation) insulin lispro [Humalog U-100 Insulin] 100 unit/mL solution 1 sliding scale dose subcut USEASDIRECTD Rx Instructions: 200-250 5 units 251-300 8 units 301-350 12 units Use IM before meals and at bedtime for DM clopidogrel 75 mg tablet 75 mg PO QDAY furosemide 40 mg tablet 80 mg PO BID therapeutic multivitamin Tablet 1 tab PO QAM cholecalciferol (vitamin D3) 50 mcg (2,000 unit) capsule 100 mcg PO QDAY Ozempic 1 mg/dose (4 mg/3 mL) pen injector 1 mg subcut QWEEK Patient Comments: Taking every monday (DME) nebulizer kits See Rx Instructions .Route .MEDSUPPLY Qty: 1 11RF Rx Instructions: As directed (DME) nebulizer machine See Rx Instructions .Route .MEDSUPPLY Qty: 1 0RF Rx Instructions: As directed insulin glargine [Lantus Solostar U-100 Insulin] 100 unit/mL (3 mL) insulin pen 33 unit subcut QAM cinacalcet 30 mg tablet 30 mg PO BID oxycodone 5 mg tablet 5 mg PO Q6H PRN (Reason: Pain Score 6-10) budesonide 1 mg/2 mL suspension for nebulization 1 mg inhalation BID Qty: 120 6RF acetaminophen 500 mg tablet 1,000 mg PO Q8H PRN (Reason: pain) proheal 30 ml PO BID albuterol sulfate 2.5 mg /3 mL (0.083 %) solution for nebulization 2.5 mg inhalation BID PRN (Reason: shortness of breath or wheezing) ammonium lactate 5 % lotion 1 applic topical QD-BID PRN (Reason: dry skin) insulin lispro 100 unit/mL insulin pen 5 unit subcut QAM Patient Comments: With Breakfast insulin lispro 100 unit/mL insulin pen 8 unit subcut QDAY Patient Comments: With dinner insulin lispro 100 unit/mL insulin pen 6 unit subcut QDAY Patient Comments: With Lunch fenofibrate micronized 200 mg capsule 145 mg PO DAILY sucralfate 1 gram Tablet 1 g PO 1HR_ACHS Qty: 0 0RF potassium chloride 20 mEq Tablet,Er Particles/Crystals 20 meq PO BIDCM Qty: 0 0RF ranolazine 500 mg tablet extended release 12 hr 500 mg PO BID Qty: 180 3RF ferrous sulfate 325 mg (65 mg iron) tablet 325 mg PO DAILY Qty: 90 1RF paroxetine HCl 40 mg tablet 40 mg PO DAILY Qty: 30 1RF pantoprazole 40 mg tablet,delayed release (DR/EC) 40 mg PO DAILY Qty: 90 1RF metoprolol succinate 50 mg tablet extended release 24 hr 50 mg PO Q12H Qty: 60 11RF hydralazine 100 mg tablet 100 mg PO TID Qty: 270 3RF Referrals / Follow Up: Hank Negrete MD [Primary Care Provider] - Within 1 Week Disposition Disposition (needs filled in before D/C Order can be placed): [facility]
--- NOTE | 2024-08-12 14:16 | DS.PCM_ITS ---
Providers Date of Admission: 08/09/24 Date of Discharge: 08/12/24 Primary Care Physician: Dr. Hank Negrete MD Reason For Visit: ACUTE CHF EXAC Diagnosis Discharge Diagnosis (1) Acute exacerbation of CHF (congestive heart failure): Status: Chronic Code(s): I50.9 - Heart failure, unspecified (2) Cellulitis and abscess of left leg: Status: Acute Code(s): L03.116 - Cellulitis of left lower limb; L02.416 - Cutaneous abscess of left lower limb Plan #Acute on chronic exacerbation of HF * Patient feels much better today. Feels his breathing is improving though he is on 3 L of oxygen still. * Continue diuresis with IV Lasix 40 mg twice daily. * 2D echo showed EF of 55 to 60% with left atrium moderately enlarged and overall normal ventricular systolic function as well as moderate MR and mild to moderate TR and dilated IVC. * Titrate oxygen to maintain saturation above 90%. * Duplex of the lower extremities ordered to rule out DVT due to edema of both lower extremities. * * #Elevated troponins. * Initial troponin was 123 and trended down to 118. * He did not have any chest pain and in light of his underlying CKD and elevated proBNP, I suspect this likely a type II non-STEMI due to demand ischemia as well as decreased clearance from kidneys. * 2D echo as above based on echo no further workup needed. * #CKD stage III: * Creatinine is down to 1.94. His baseline is stated appear to be around 1.7- 2.1 labs from 2023 so there is likely progression of his underlying CKD. * Continue monitoring creatinine * * #Left lower extremity cellulitis * States as the socks was being taken off in his assisted living his skin was extensively torn off his left evangelista. * Has erythema and superficial pus filled blisters on the evangelista of his left leg * Outline area with a body marker. Consult wound care. * on IV Unasyn for cellulitis. Erythema of LE has largely resolved. * #History of asthma and COPD with chronic respiratory failure: * On 3 L of oxygen. Titrate oxygen to maintain saturation above 90%. * Breathing treatments with bronchodilators. #History of CAD: On aspirin and Plavix as well as high intensity statin and fenofibrate. lso on ranolazine #Hypertension: On hydralazine. Also metoprolol #Type 2 diabetes mellitus: On Lantus 33 units in the morning. Insulin sliding scale. ACT checks ACHS. DVT prophylaxis: Heparin CODE STATUS: Full code * Medications at Discharge Home Medications ranolazine 500 mg tablet,extended release,12 hr 500 mg PO BID chest pain #180 tabs 12/20/22 ferrous sulfate 325 mg (65 mg iron) tablet 325 mg PO DAILY supplement #90 tabs 05/19/23 paroxetine HCl 40 mg tablet 40 mg PO DAILY mood #30 tabs 05/19/23 pantoprazole 40 mg tablet,delayed release 40 mg PO DAILY GI #90 tabs 06/01/23 metoprolol succinate 50 mg tablet,extended release 24 hr 50 mg PO Q12H blood pressure #60 tabs 06/12/23 potassium chloride 20 mEq tablet,extended release(part/cryst) 20 meq PO BIDCM Supplement #0 tabs 07/31/23 sucralfate 1 gram tablet 1 g PO 1HR_ACHS GERD #0 tabs 07/31/23 bisacodyl 10 mg rectal suppository 10 mg [place] DAILY PRN constipation 08/08/23 insulin lispro 100 unit/mL subcutaneous solution (Humalog U-100 Insulin) 1 sliding scale dose subcut USEASDIRECTD SS 08/08/23 magnesium hydroxide 400 mg/5 mL oral suspension (Milk of Magnesia) 30 ml PO DAILY PRN constipation 08/08/23 mineral oil (Fleet Mineral Oil enema) 118 ml NJ DAILY PRN constipation 08/08/23 fenofibrate micronized 200 mg capsule 145 mg PO DAILY Cholesterol 08/11/23 hydralazine 100 mg tablet 100 mg PO TID Hypertension #270 tabs 02/21/24 cholecalciferol (vitamin D3) 50 mcg (2,000 unit) capsule 100 mcg PO QDAY supplement 03/15/24 clopidogrel 75 mg tablet 75 mg PO QDAY Anticoagulant 03/15/24 furosemide 40 mg tablet 80 mg PO BID water pill 03/15/24 nebulizer kits #1 ea 03/15/24 nebulizer machine #1 ea 03/15/24 semaglutide 1 mg/dose (4 mg/3 mL) subcutaneous pen injector (Ozempic) 1 mg subcut QWEEK DM 03/15/24 therapeutic multivitamin 1 tab PO QA health 03/15/24 budesonide 1 mg/2 mL suspension for nebulization 1 mg (2 mL) inhalation BID COPD #120 mL 05/03/24 insulin glargine 100 unit/mL (3 mL) subcutaneous pen (Lantus Solostar U-100 Insulin) 33 unit subcut QAM Long acting Insulin 07/22/24 insulin lispro 100 unit/mL subcutaneous pen 5 unit subcut QAM Glucose Control 07/22/24 insulin lispro 100 unit/mL subcutaneous pen 6 unit subcut QDAY Glucose Control 07/22/24 insulin lispro 100 unit/mL subcutaneous pen 8 unit subcut QDAY Glucose Control 07/22/24 acetaminophen 500 mg tablet 1,000 mg PO Q8H PRN pain 08/01/24 albuterol sulfate 2.5 mg/3 mL (0.083 %) solution for nebulization 2.5 mg inhalation BID PRN shortness of breath or wheezing 08/01/24 ammonium lactate 5 % lotion 1 applic topical QD-BID PRN dry skin 08/01/24 cinacalcet 30 mg tablet 30 mg PO BID supplement 08/01/24 oxycodone 5 mg tablet 5 mg PO Q6H PRN Pain Score 6-10 08/01/24 proheal 30 ml PO BID supplement drink 08/01/24 doxycycline hyclate 100 mg tablet 100 mg PO BID #10 tabs 08/12/24 Hospital Course Operations None Procedures None Summary of Care Provided Minutes Spent on Discharge: 47 Hospital Course: ELIANE KAY, is a 68 M with a past medical history as outlined was admitted through the ED on 08/09/2024 with a complaint of shortness of breath. Shortness of breath and going on for about 6 weeks but says has been worsening. He initially felt the shortness of breath was from his COPD and he had been on breathing treatments with his nebulizers. Initially helped but subsequently his shortness of breath worsened with associated lower extremity edema. He wears BiPAP at night for sleep apnea and had also been requiring 3 L of oxygen during the day. He denied any chest pain no fever or chills. He had also noticed some redness of his lower extremities. Review of systems otherwise negative. He said he had been started on doxycycline on August 07, 2024 after he had a wound on his left evangelista and the skin was accidentally pulled off when his socks were being removed. Vitals in the ED where blood pressure 116/70, pulse rate of 71, respiratory rate of 24 and temperature of 98.4 Fahrenheit. He was saturating at 96% on 2 L of oxygen. CBC showed hemoglobin of 10.1 with WBC of 8.3 and platelets of 259. Chemistry showed sodium of 141 with potassium of 3.5 and bicarb of 28.2. Creatinine was 2.3. Initial troponin was 123 and proBNP was markedly elevated at 2387. Of note his baseline creatinine is around 1.7-1.9. EKG showed no acute ST changes and chest x-ray showed mild cardiomegaly and pulmonary vascular congestion. He was admitted to monitor for acute exacerbation of heart failure and cellulitis of the left lower extremity. He was diuresed with IV Lasix. He was also placed on IV Unasyn for cellulitis with stasis dermatitis of the lower extremities. Patient shortness of breath improved and he remained on his baseline 3 L of oxygen. The redness and swelling of his lower extremities also improved markedly. He had duplex of the lower extremity which was negative for any evidence of DVT. [facility]. Was discharged on p.o. doxycycline for 5-day course and is to continue with his home dose of Lasix 80 mg twice daily. 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 Patient seen and examined prior to discharge. He still complain of a subjective feeling of shortness of breath but he was on 3 L of oxygen which was his baseline and saturating at 98%. He was also not visibly short of breath. Review of systems otherwise negative. Labs and vitals reviewed. Medications reviewed and reconciled. Physical Exam Const alert, oriented x3 and no apparent distress Constitutional Narrative: class III obesity General Appearance: cooperative, comfortable, well kempt and well developed Orientation / Consciousness: awake Exam Limitations: no limitations HEENT normocephalic, head/scalp atraumatic, hearing grossly normal bilaterally and moist oral mucous membranes Mouth: oral and palatal mucosa normal Eyes PERRL, EOMs intact bilaterally and conjunctivae normal Neck no lymphadenopathy and supple Resp Resp Narrative: moderately diminished breath sounds bibasally, no wheezes or crackles. On 2 L of oxygen by nasal canula Cardio regular rate, regular rhythm, S1 normal heart sound, S2 normal heart sound and no murmurs GI normal to inspection, nondistended, normoactive bowel sounds, soft to palpation, non-tender and non-distended Extremity normal to inspection, full ROM and no clubbing, cyanosis or edema Extremity Narrative: bilateral 1+ lower extremity pitting pedal edema, has improved. Erythema on the evangelista has improved markedly. Skin Skin Narrative: as under extremities General Skin Exam: no breakdown Neuro oriented x3, CN's II-XII intact bilaterally, moves all extremities and no focal motor deficits Sensorium / Orientation: awake and alert Motor Exam: strength 5/5 throughout Psych thought process normal, cooperative and affect normal Appearance: appropriate Weight / BMI Weight Weight: 273 lb 8 oz Body Mass Index (BMI) 39.2 ABG / Lab / Microbiology Data 08/12/24 05:36 08/12/24 05:36 Laboratory: Laboratory Results - last 24 hr 08/11/24 16:15: POC Glucose 125 H 08/11/24 21:39: POC Glucose 106 08/12/24 05:36: WBC 8.4, RBC 3.87 L, Hgb 9.9 L, Hct 32.2 L, MCV 83.2, MCH 25.6 L , MCHC 30.7 L, RDW Std Deviation 48.4 H, RDW Coeff of Thao 16.0 H, Plt Count 272, MPV 9.3, Immature Gran % (Auto) 0.800, Neut % (Auto) 82.6 H, Lymph % (Auto) 3.8 L, [place] % (Auto) 10.9 H, Eos % (Auto) 1.3, Baso % (Auto) 0.6, Absolute Neuts (auto) 6.9, Absolute Lymphs (auto) 0.32 L, Nucleated RBC % 0, Sodium 142, Potassium 3.5, Chloride 101, Carbon Dioxide 27.9, Anion Gap 13, BUN 40 H, C reatinine 1.91 H, Estim Creat Clear Calc 49.59 L, Est GFR (MDRD) Non-Af 38 L, B UN/Creatinine Ratio 20.7 H, Glucose 52 L, Calcium 10.2 08/12/24 08:12: POC Glucose 55 L 08/12/24 08:36: POC Glucose 78 08/12/24 11:32: POC Glucose 191 H D/C Instructions Discharge Diet: Low fat / Low cholesterol Discharge Activity: Return to Normal Activity Weight Bearing Status: Weight bearing as tolerated Call your doctor if you observe: Fever of 101 or Higher, Shortness of breath, Dizziness, Swelling in the ankles, Chest pain and Increased palpitations (irregular heartbeat) DC O2, CPAP, BIPAP Needs Home O2 Discharge instructions: Yes Type of respiratory needs?: Oxygen Oxygen frequency: Continuous Continuous oxygen liters per minute: 3 DC home with Oxygen: Yes Home O2 MD Review: I have reviewed the oxygen testing, and the patient qualifies for home oxygen equipment and portability. The patient is mobile in the home and the community. Meaningful Use Info Meaningful Use Meaningful Use Diagnoses (Choose all that apply): CHF CHF LUCIAN/ARB ordered at discharge?: No Reason LUCIAN/ARB not ordered?: Worsening renal disease Documented LVEF (%): 55 Ischemic Stroke Statin Dosing Therapy Reference: STATIN DOSE THERAPY REFERENCE: * Patients > 75 years receive moderate or high dose statin therapy. * Patients 75 years or YOUNGER should receive HIGH intensity statin dose unless contraindicated. You will be required to document reason for non-treatment if statin daily dose does not meet guidelines. HIGH DOSE STATIN THERAPY DAILY Atorvastatin > than or = to 40 mg Rosuvastatin > than or = to 20 mg Amlodipine + Atorvastatin > than or = to 2.5/40 mg Ezetimibe + Simvastatin 10/80 mg Simvastatin 80mg Discharge Plan Admission Admit Date/Time: 08/09/24 16:23 Primary Reason for Your Visit: acute exacerbation of heart failure Attending Provider: Chey Kearney Primary Care Provider: Hank Negrete Instructions Patient Instructions: Coping with Heart Failure Discharge Orders/Prescriptions Prescriptions: New doxycycline hyclate 100 mg tablet 100 mg PO BID Qty: 10 0RF Continued mineral oil [Fleet Mineral Oil] Enema 118 ml NJ DAILY PRN (Reason: constipation) Rx Instructions: discard any unused portion magnesium hydroxide [Milk of Magnesia] 400 mg/5 mL suspension 30 ml PO DAILY PRN (Reason: constipation) bisacodyl 10 mg suppository 10 mg NJ DAILY PRN (Reason: constipation) insulin lispro [Humalog U-100 Insulin] 100 unit/mL solution 1 sliding scale dose subcut USEASDIRECTD Rx Instructions: 200-250 5 units 251-300 8 units 301-350 12 units Use IM before meals and at bedtime for DM clopidogrel 75 mg tablet 75 mg PO QDAY furosemide 40 mg tablet 80 mg PO BID therapeutic multivitamin Tablet 1 tab PO QAM cholecalciferol (vitamin D3) 50 mcg (2,000 unit) capsule 100 mcg PO QDAY Ozempic 1 mg/dose (4 mg/3 mL) pen injector 1 mg subcut QWEEK Patient Comments: Taking every monday (DME) nebulizer kits See Rx Instructions .Route .MEDSUPPLY Qty: 1 11RF Rx Instructions: As directed (DME) nebulizer machine See Rx Instructions .Route .MEDSUPPLY Qty: 1 0RF Rx Instructions: As directed insulin glargine [Lantus Solostar U-100 Insulin] 100 unit/mL (3 mL) insulin pen 33 unit subcut QAM cinacalcet 30 mg tablet 30 mg PO BID oxycodone 5 mg tablet 5 mg PO Q6H PRN (Reason: Pain Score 6-10) budesonide 1 mg/2 mL suspension for nebulization 1 mg inhalation BID Qty: 120 6RF acetaminophen 500 mg tablet 1,000 mg PO Q8H PRN (Reason: pain) proheal 30 ml PO BID albuterol sulfate 2.5 mg /3 mL (0.083 %) solution for nebulization 2.5 mg inhalation BID PRN (Reason: shortness of breath or wheezing) ammonium lactate 5 % lotion 1 applic topical QD-BID PRN (Reason: dry skin) insulin lispro 100 unit/mL insulin pen 5 unit subcut QAM Patient Comments: With Breakfast insulin lispro 100 unit/mL insulin pen 8 unit subcut QDAY Patient Comments: With dinner insulin lispro 100 unit/mL insulin pen 6 unit subcut QDAY Patient Comments: With Lunch fenofibrate micronized 200 mg capsule 145 mg PO DAILY sucralfate 1 gram Tablet 1 g PO 1HR_ACHS Qty: 0 0RF potassium chloride 20 mEq Tablet,Er Particles/Crystals 20 meq PO BIDCM Qty: 0 0RF ranolazine 500 mg tablet extended release 12 hr 500 mg PO BID Qty: 180 3RF ferrous sulfate 325 mg (65 mg iron) tablet 325 mg PO DAILY Qty: 90 1RF paroxetine HCl 40 mg tablet 40 mg PO DAILY Qty: 30 1RF pantoprazole 40 mg tablet,delayed release (DR/EC) 40 mg PO DAILY Qty: 90 1RF metoprolol succinate 50 mg tablet extended release 24 hr 50 mg PO Q12H Qty: 60 11RF hydralazine 100 mg tablet 100 mg PO TID Qty: 270 3RF Referrals / Follow Up: Hank Negrete MD [Primary Care Provider] - Within 1 Week Disposition Disposition (needs filled in before D/C Order can be placed): [facility] Charges/Coding Visit Charges Inpatient E&M: 96144 Disch Hosp >30min
--- NOTE | 2024-08-12 14:36 | CASEMGMT ---
Discharge Planning Discharge orders, signed med list, and transport time sent to [facility] [place]. Physicians will transport pt by wheelchair at 3p. Nursing, SW, pt, and pts nephew (Don) updated. Jennifer Stringer DC Planning Asst.
--- NOTE | 2024-08-12 15:10 | NURSING ---
called report to [facility] at this time, all questions answered.
--- NOTE | 2024-08-12 15:49 | PHA.DC.MR.R ---
Pharmacy MD Med Reconciliation Pharmacy Service has performed discharge medication reconciliation for this patient. The patient's discharge medication list was reviewed for discrepancies and discrepancies were resolved. Medications at Discharge Home Medications ranolazine 500 mg tablet,extended release,12 hr 500 mg PO BID chest pain #180 tabs 12/20/22 ferrous sulfate 325 mg (65 mg iron) tablet 325 mg PO DAILY supplement #90 tabs 05/19/23 paroxetine HCl 40 mg tablet 40 mg PO DAILY mood #30 tabs 05/19/23 pantoprazole 40 mg tablet,delayed release 40 mg PO DAILY GI #90 tabs 06/01/23 metoprolol succinate 50 mg tablet,extended release 24 hr 50 mg PO Q12H blood pressure #60 tabs 06/12/23 potassium chloride 20 mEq tablet,extended release(part/cryst) 20 meq PO BIDCM Supplement #0 tabs 07/31/23 sucralfate 1 gram tablet 1 g PO 1HR_ACHS GERD #0 tabs 07/31/23 bisacodyl 10 mg rectal suppository 10 mg [place] DAILY PRN constipation 08/08/23 insulin lispro 100 unit/mL subcutaneous solution (Humalog U-100 Insulin) 1 sliding scale dose subcut USEASDIRECTD SS 08/08/23 magnesium hydroxide 400 mg/5 mL oral suspension (Milk of Magnesia) 30 ml PO DAILY PRN constipation 08/08/23 mineral oil (Fleet Mineral Oil enema) 118 ml [place] DAILY PRN constipation 08/08/23 fenofibrate micronized 200 mg capsule 145 mg PO DAILY Cholesterol 08/11/23 hydralazine 100 mg tablet 100 mg PO TID Hypertension #270 tabs 02/21/24 cholecalciferol (vitamin D3) 50 mcg (2,000 unit) capsule 100 mcg PO QDAY supplement 03/15/24 clopidogrel 75 mg tablet 75 mg PO QDAY Anticoagulant 03/15/24 furosemide 40 mg tablet 80 mg PO BID water pill 03/15/24 nebulizer kits #1 ea 03/15/24 nebulizer machine #1 ea 03/15/24 semaglutide 1 mg/dose (4 mg/3 mL) subcutaneous pen injector (Ozempic) 1 mg subcut QWEEK DM 03/15/24 therapeutic multivitamin 1 tab PO QA health 03/15/24 budesonide 1 mg/2 mL suspension for nebulization 1 mg (2 mL) inhalation BID COPD #120 mL 05/03/24 insulin glargine 100 unit/mL (3 mL) subcutaneous pen (Lantus Solostar U-100 Insulin) 33 unit subcut QAM Long acting Insulin 07/22/24 insulin lispro 100 unit/mL subcutaneous pen 5 unit subcut QAM Glucose Control 07/22/24 insulin lispro 100 unit/mL subcutaneous pen 6 unit subcut QDAY Glucose Control 07/22/24 insulin lispro 100 unit/mL subcutaneous pen 8 unit subcut QDAY Glucose Control 07/22/24 acetaminophen 500 mg tablet 1,000 mg PO Q8H PRN pain 08/01/24 albuterol sulfate 2.5 mg/3 mL (0.083 %) solution for nebulization 2.5 mg inhalation BID PRN shortness of breath or wheezing 08/01/24 ammonium lactate 5 % lotion 1 applic topical QD-BID PRN dry skin 08/01/24 cinacalcet 30 mg tablet 30 mg PO BID supplement 08/01/24 oxycodone 5 mg tablet 5 mg PO Q6H PRN Pain Score 6-10 08/01/24 proheal 30 ml PO BID supplement drink 08/01/24 doxycycline hyclate 100 mg tablet 100 mg PO BID #10 tabs 08/12/24
--- NOTE | 2024-08-12 15:50 | NURSING ---
Transport here to take patient [facility]. telemetry removed and placed at nurses station. Iv removed with catheter intact, clean dry dressing applied, pt tolerated well. Pt denies any further needs at this time. belongings sent with patient.
== END 2024-08-12 15:53 | disposition skilled nursing facility (03) | DRG 291 ==
LOC: ED 15:49 → PCU 16:03
PROVIDERS: Physician Assistant; Admitting Provider Student in an Organized Health Care Education/Training Program; Emergency Provider Emergency Medicine; PCP Family Medicine; Referring Provider Student in an Organized Health Care Education/Training Program; Visit Provider Student in an Organized Health Care Education/Training Program
DX: I13.0 Hypertensive heart and chronic kidney disease with heart failure and stage 1 through stage 4 chronic kidney disease, or unspecified chronic kidney disease (principal); I50.33 Acute on chronic diastolic (congestive) heart failure; N17.9 Acute kidney failure, unspecified; L02.416 Cutaneous abscess of left lower limb; J96.11 Chronic respiratory failure with hypoxia; L03.116 Cellulitis of left lower limb; E11.22 Type 2 diabetes mellitus with diabetic chronic kidney disease; D64.9 Anemia, unspecified; J44.9 Chronic obstructive pulmonary disease, unspecified; N18.30 Chronic kidney disease, stage 3 unspecified; I34.0 Nonrheumatic mitral (valve) insufficiency; E11.51 Type 2 diabetes mellitus with diabetic peripheral angiopathy without gangrene; Z79.4 Long term (current) use of insulin; G47.33 Obstructive sleep apnea (adult) (pediatric); K21.9 Gastro-esophageal reflux disease without esophagitis; I25.10 Atherosclerotic heart disease of native coronary artery without angina pectoris; E78.00 Pure hypercholesterolemia, unspecified; I87.8 Other specified disorders of veins; E11.65 Type 2 diabetes mellitus with hyperglycemia; Z82.49 Family history of ischemic heart disease and other diseases of the circulatory system; Z79.02 Long term (current) use of antithrombotics/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; Z79.85 Long-term (current) use of injectable non-insulin antidiabetic drugs; Z79.51 Long term (current) use of inhaled steroids; Z95.5 Presence of coronary angioplasty implant and graft; Z83.3 Family history of diabetes mellitus; Z79.899 Other long term (current) drug therapy; Z99.89 Dependence on other enabling machines and devices; H91.90 Unspecified hearing loss, unspecified ear; Z79.891 Long term (current) use of opiate analgesic
CPT/HCPCS: 36415; 71045; 80048; 82962; 83880; 84484; 85025; 92610; 93005; 93306; 93970; 94002; 94003; 94640; 97162; 97165; 97530; 97535; 97802; 99285; A4216; J0295; J1938

== ENCOUNTER 2024-09-04 10:49 | Day surgery (SDC) | payer MEDICARE, MEDICAID, SELFPAY ==
[2023-03-13 16:01] VITALS: BMI 43.3
--- NOTE | 2024-09-03 16:47 | PAT.ANE_ITS ---
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 When Was Last Pacemaker Check QUESTION #4 FULL TEXT: You/Your Family Experience fever (hyperthermia) with Anesthesia Last Oral Intake Last Oral intake: Last Oral Intake NPO since Meds taken in AM with sips of water? Meds patient instructed to take am of surgery PONV PONV - peripheral edp equipment operator: PONV - peripheral edp equipment operator Female No 09/03/24 12:16 HX of Motion Sickness No 09/03/24 12:16 HX of N/V After Surgery No 09/03/24 12:16 Non-Smoker Yes 09/03/24 12:16 Duration of Surgery greater No 09/03/24 12:16 than 60 minutes Number of Risk Factors 1 09/03/24 12:16 PONV Score Low Risk 09/03/24 12:16 Height & Weight Height & Weight: Anesthesia: Height & Weight Height 5 ft 10 in 08/15/24 08:16 Respiratory Assessment Respiratory Assessment - peripheral edp equipment operator: Respiratory Tract Infection Hx - peripheral edp equipment operator Hx Respiratory Tract Infection No 09/03/24 12:16 STOP Sleep Apnea STOP Sleep Apnea - peripheral edp equipment operator: STOP Sleep Apnea - peripheral edp equipment operator Hx Hypertension Yes 09/03/24 12:16 Hx Sleep Apnea Yes 09/03/24 12:16 CPAP No 09/03/24 12:16 BIPAP Yes 09/03/24 12:16 Do you snore loudly (louder than talking or can be heard Do you often feel tired/ fatigued/ sleepy during daytime? Has anyone observed you stop breathing during sleep? STOP Results Positive 09/03/24 12:16 QUESTION #5 FULL TEXT : Do you snore loudly (louder than talking or can be heard through closed doors)? 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 Specify any problems Hx of Preganancy in last 3 N/A 09/03/24 12:16 Months Nurse Filling Out Transfusion DSCHRIBER 09/03/24 12:16 & Questions: Date: 09/03/24 09/03/24 12:16 Time: 12:17 09/03/24 12:16 Patient unable to answer at this time (ie. confused, unrespo /Reproduction History /Reproductive History - peripheral edp equipment operator: /Reproductive Hx- peripheral edp equipment operator Hx Now No 09/03/24 12:16 Gestational Age (in weeks): EDC: Hx Hx Para Hx Section SAB No 09/03/24 12:16 [facility] Medical History (Updated 09/03/24 @ 12:24 by Marisol Sidhu) Low iron Insulin dependent diabetes mellitus On home oxygen therapy Cellulitis and abscess of left leg Acute exacerbation of CHF (congestive heart failure) CKD (chronic kidney disease), stage III Major depressive disorder Peripheral vascular disease Pacemaker Obesity Acute hypoxemic respiratory failure Lives in [place] [facility] Loss of hearing Tinnitus of both ears Wears glasses Anxiety Pressure ulcer Thyroid disease Uses wheelchair Ambulates with cane Arthritis History of renal disease Hepatitis Pulmonary embolism Back pain Injury of head and neck Hypotension Dietary restriction History of ulceration History of GI bleed History of diverticulitis Non-smoker COPD (chronic obstructive pulmonary disease) Shortness of breath on exertion History of edema History of echocardiogram History of stress test Cardiology follow-up encounter Chest pain Presence of permanent cardiac pacemaker Sick sinus syndrome Alcohol abuse Depression GERD (gastroesophageal reflux disease) BiPAP (biphasic positive airway pressure) dependence Irregular heart beat Congestive heart failure (CHF) Hypertension DVT (deep venous thrombosis) Fall Intermittent chest pain Gastric ulcer GI bleed Heart failure with preserved ejection fraction Atrial fibrillation Olecranon bursitis Debility Dizziness Anxiety and depression Vertigo Shortness of breath Diabetes Asthma Anemia Dark stools Benign essential HTN MEANS (dyspnea on exertion) Osteopenia Primary hyperparathyroidism Chest pain Hyperparathyroidism Seizures Adult failure to thrive Type 2 diabetes mellitus Chronic pain of both knees Vitamin D deficiency Renal insufficiency Fatigue Arthritis Colon cancer screening Health care maintenance Acute midline thoracic back pain Hyperlipidemia Hypercalcemia Secondary pulmonary hypertension Depression Congestive heart failure Chronic wound of head Sciatica Insomnia Pure hypercholesterolemia Atherosclerosis of coronary artery of [place] heart without angina pectoris Chronic hypoxemic respiratory failure FAVIAN (obstructive sleep apnea) Dyspnea on exertion History of pulmonary embolism Acquired left ventricular hypertrophy Abnormal chest xray Near syncope Hypoxia Hypertriglyceridemia Morbid obesity with BMI of 40.0-44.9, adult Osteoarthritis History of DVT (deep vein thrombosis) Home Medications ?Medication ?Instructions ?Recorded ?Last Taken ?Type ranolazine 500 mg tablet,extended 500 mg PO BID chest pain #180 tabs 12/20/22 08/09/24 Rx release,12 hr ferrous sulfate 325 mg (65 mg 325 mg PO DAILY suppleme nt #90 tabs 05/19/23 08/09/24 Rx iron) tablet paroxetine HCl 40 mg tablet 40 mg PO DAILY mood #30 ta bs 05/19/23 08/09/24 Rx pantoprazole 40 mg tablet,delayed 40 mg PO DAILY GI #9 0 tabs 06/01/23 08/09/24 Rx release metoprolol succinate 50 mg 50 mg PO Q12H blood pressur e #60 06/12/23 08/09/24 Rx tablet,extended release 24 hr tabs sucralfate 1 gram tablet 1 g PO 1HR_ACHS GERD #0 tabs 07/31/23 08/09/24 Rx bisacodyl 10 mg rectal suppository 10 mg IA DAILY PRN constipation 08/08/23 Unknown History insulin lispro 100 unit/mL 1 sliding scale dose subcut 08/08/23 08/09/24 History subcutaneous solution (Humalog USEASDIRECTD SS U-100 Insulin) magnesium hydroxide 400 mg/5 mL 30 ml PO DAILY PRN con stipation 08/08/23 Unknown History oral suspension (Milk of Magnesia) mineral oil (Fleet Mineral Oil 118 ml IA DAILY PRN con stipation 08/08/23 Unknown History enema) hydralazine 100 mg tablet 100 mg PO TID Hypertension # 270 02/21/24 08/09/24 Rx tabs cholecalciferol (vitamin D3) 50 100 mcg PO QDAY supple ment 03/15/24 08/09/24 History mcg (2,000 unit) capsule clopidogrel 75 mg tablet 75 mg PO QDAY Anticoagulant 03/15/24 08/23/24 History nebulizer kits #1 ea 03/15/24 Unknown Rx nebulizer machine #1 ea 03/15/24 Unknown Rx semaglutide 1 mg/dose (4 mg/3 mL) 1 mg subcut FR DM 08/23/24 History subcutaneous pen injector (Ozempic) therapeutic multivitamin 1 tab PO QAM health 03/15/24 Unknown History budesonide 1 mg/2 mL suspension 1 mg (2 mL) inhalation BID COPD 05/03/24 08/09/24 Rx for nebulization #120 mL insulin glargine 100 unit/mL (3 33 unit subcut QAM Obi g acting 07/22/24 08/09/24 History mL) subcutaneous pen (Lantus Insulin Solostar U-100 Insulin) insulin lispro 100 unit/mL 5 unit subcut 0800 Glucose Control 07/22/24 08/09/24 History subcutaneous pen insulin lispro 100 unit/mL 6 unit subcut 1200 Glucose Control 07/22/24 08/08/24 History subcutaneous pen insulin lispro 100 unit/mL 8 unit subcut 1800 Glucose Control 07/22/24 08/08/24 History subcutaneous pen acetaminophen 500 mg tablet 1,000 mg PO Q8H PRN pain 0 08/01/24 Unknown History albuterol sulfate 2.5 mg/3 mL 2.5 mg inhalation BID IA N 08/01/24 Unknown History (0.083 %) solution for nebulization shortness of breat h or wheezing ammonium lactate 5 % lotion 1 applic topical QD-BID IA N dry 08/01/24 08/09/24 History skin cinacalcet 30 mg tablet 30 mg PO BID supplement 07/1008/09/24 History oxycodone 5 mg tablet 5 mg PO Q6H PRN Pain Score 6 -10 08/01/24 Unknown History fenofibrate nanocrystallized 145 145 mg PO DAILY 08/15 Unknown History mg tablet furosemide 40 mg tablet 60 mg PO QDAY water pill 12/02 Unknown History potassium chloride 20 mEq 20 meq PO QDAY Supplement #0 tabs 08/15/24 Unknown Rx tablet,extended release(part/cryst) spironolactone 25 mg tablet 25 mg PO DAILY #1 TAB 12/02 Unknown Rx Lactobacillus rhamnosus GG 10 1 cap PO BID 09/03/24 Un known History billion cell capsule (Culturelle) cefdinir 300 mg capsule 300 mg PO BID 09/03/24 Unkno wn History Allergy/AdvReac Type Severity Reaction Status Date / Time No Known Allergies Allergy Verified 09/03/24 11:58 Family History Mother Colon cancer Sister CAD (coronary artery disease) CABG x 5 Diabetes Myocardial infarction, Onset Age: 67 Father Crohns disease Surgical History (Updated 09/03/24 @ 12:24 by Marisol Sidhu) History of cardiac catheterization History of appendectomy History of eye surgery History of intestinal surgery History of appendectomy History of tonsillectomy and adenoidectomy History of knee surgery History of hip replacement 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) History of coronary artery stent placement (10/21/22) Social History household members: none housing: apartment current occupational status: retired pets and animals: No other: Hx working in [employer] and [employer]. Smoking Status: Never smoker second hand exposure: Yes alcohol intake: former year quit: 2003 details: Sober since 2003. substance use type: former substance user Date of last use: 04/10/2004 and marijuana caffeine: Yes Type: carbonated beverages Number of servings: 2 and coffee Number of servings: 2 what type of physical activity do you participate in: none Audit: Pertinent Findings Pertinent Findings EKG Perinent findings: August 09, 2024. Atrial fibrillation with frequent PVCs. Septal infarct, age undetermined. ST and T wave abnormality consider inferior lateral ischemia. (See echo below) Stress test pertinent findings: 10/21/2022. EF 44%. Abnormal stress test with inferior prior TX with cisco-infarct inferior ischemia. Anterior lateral reversible myocardial ischemia. (See follow-up cath below) Echo (EF%) pertinent findings: 08/10/2024. Ejection fraction 55 to 60%. No aortic stenosis noted. Heart catheterization pertinent findings: 10/26/2022. 1. 80% proximal LAD-successful dilation and insertion of DANIEL. 2. 70% mid OM1-successful dilation and insertion of DANIEL. 3. 80% proximal OM 2?successful dilation and insertion of DANIEL. 4. Patient is to continue Eliquis for his A-fib. Plavix for at least 12 months. Consult pertinent findings: 08/15/2024. Antoine ABDULLAHI. 1. Edema?acute-significant lower extremity edema. Decrease Lasix. Add spironolactone. Decrease potassium. Monitor. 2. Benign essential hypertension?chronic-BP is higher today. Adding spironolactone. Will monitor. 3. Atrial fibrillation?inactive-patient is in persistent atrial fibrillation. Unable to resume Eliquis due to recurrent GI bleeds. Dr. Gonzales managing GI issues. 4. Atherosclerosis of the coronary arteries of [place] heart without angina.?Chronic-patient has been treated with multiple stents (5). Currently no angina. Continue medications. 5. Permanent cardiac pacemaker?acute-functioning appropriately. Recommendation Anesthesia Recommendation Anesthesia recommendation: OPTIMIZED for anesthesia (Patient is cleared for EGD procedure. Reassess on day of surgery to insure no recurrence of angina.)
[2024-09-04] VITALS (7 sets, daily range): BP systolic 129–161; BP diastolic 72–81; PULSE 70–71; RESP 16–22; TEMP 36.2–36.6; O2SAT 99–100; BMI 38.7
[2024-09-04] MEDS: Lactated Ringers 1,000 ML 15 ML IV (11:24)
--- NOTE | 2024-09-04 11:29 | HP.PCM_ITS ---
HPI - General General Date of Admission: 09/04/24 Date of Service: 09/04/24 HPI Narrative ELIANE KAY, is a 68 M who presents for evaluation of abdominal pain. BGI established 12.15.23 [facility] hospitalization 02.26.23-03.03.23 for management of GIB and CHF with HF with preserved ejection fraction. 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 H.Pylori neg. [facility] hospitalization 03.13.23-03.18.23 for ongoing GIB with anemia requiring PRBC transfusion with chronic conditions DMII, CAD, CKD III. 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 Last OV 9 Pt doing well with no heartbrun or signs of GI bleeding. COntinues PPI and iron. No conerns at this time. EGD 07.13.23; - Esophageal mucosal changes consistent with short-segment Tuttle's esophagus. Biopsied. - LA Grade B erosive esophagitis with bleeding. Treated with a heater probe. - Oozing gastric ulcer with pigmented material. Injected. Treated with a heater probe. - No gross lesions in the duodenal bulb OV 3..25; RUQ pain starting back in 2023 after having broken ribs. Pain is sharp and worse with movements. He has noticed it is worse after eating. He denies n/v, constipation, diarrhea, blood in his stool or heartburn. [facility] Medical History Low iron Insulin dependent diabetes mellitus On home oxygen therapy Cellulitis and abscess of left leg Acute exacerbation of CHF (congestive heart failure) CKD (chronic kidney disease), stage III Major depressive disorder Peripheral vascular disease Pacemaker Obesity Acute hypoxemic respiratory failure Lives in [facility] Loss of hearing Tinnitus of both ears Wears glasses Anxiety Pressure ulcer Thyroid disease Uses wheelchair Ambulates with cane Arthritis History of renal disease Hepatitis Pulmonary embolism Back pain Injury of head and neck Hypotension Dietary restriction History of ulceration History of GI bleed History of diverticulitis Non-smoker COPD (chronic obstructive pulmonary disease) Shortness of breath on exertion History of edema History of echocardiogram History of stress test Cardiology follow-up encounter Chest pain Presence of permanent cardiac pacemaker Sick sinus syndrome Alcohol abuse Depression GERD (gastroesophageal reflux disease) BiPAP (biphasic positive airway pressure) dependence Irregular heart beat Congestive heart failure (CHF) Hypertension DVT (deep venous thrombosis) Fall Intermittent chest pain Gastric ulcer GI bleed Heart failure with preserved ejection fraction Atrial fibrillation Olecranon bursitis Debility Dizziness Anxiety and depression Vertigo Shortness of breath Diabetes Asthma Anemia Dark stools Benign essential HTN MEANS (dyspnea on exertion) Osteopenia Primary hyperparathyroidism Chest pain Hyperparathyroidism Seizures Adult failure to thrive Type 2 diabetes mellitus Chronic pain of both knees Vitamin D deficiency Renal insufficiency Fatigue Arthritis Colon cancer screening Health care maintenance Acute midline thoracic back pain Hyperlipidemia Hypercalcemia Secondary pulmonary hypertension Depression Congestive heart failure Chronic wound of head Sciatica Insomnia Pure hypercholesterolemia Atherosclerosis of coronary artery of [place] heart without angina pectoris Chronic hypoxemic respiratory failure FAVIAN (obstructive sleep apnea) Dyspnea on exertion History of pulmonary embolism Acquired left ventricular hypertrophy Abnormal chest xray Near syncope Hypoxia Hypertriglyceridemia Morbid obesity with BMI of 40.0-44.9, adult Osteoarthritis History of DVT (deep vein thrombosis) Home Medications ?Medication ?Instructions ?Recorded ?Last Taken ?Type ranolazine 500 mg tablet,extended 500 mg PO BID chest pain #180 tabs 12/20/22 08/09/24 Rx release,12 hr ferrous sulfate 325 mg (65 mg 325 mg PO DAILY suppleme nt #90 tabs 05/19/23 08/09/24 Rx iron) tablet paroxetine HCl 40 mg tablet 40 mg PO DAILY mood #30 ta bs 05/19/23 08/09/24 Rx pantoprazole 40 mg tablet,delayed 40 mg PO DAILY GI #9 0 tabs 06/01/23 08/09/24 Rx release metoprolol succinate 50 mg 50 mg PO Q12H blood pressur e #60 06/12/23 08/09/24 Rx tablet,extended release 24 hr tabs sucralfate 1 gram tablet 1 g PO 1HR_ACHS GERD #0 tabs 07/31/23 08/09/24 Rx bisacodyl 10 mg rectal suppository 10 mg RI DAILY PRN constipation 08/08/23 Unknown History insulin lispro 100 unit/mL 1 sliding scale dose subcut 08/08/23 08/09/24 History subcutaneous solution (Humalog USEASDIRECTD SS U-100 Insulin) magnesium hydroxide 400 mg/5 mL 30 ml PO DAILY PRN con stipation 08/08/23 Unknown History oral suspension (Milk of Magnesia) mineral oil (Fleet Mineral Oil 118 ml RI DAILY PRN con stipation 08/08/23 Unknown History enema) hydralazine 100 mg tablet 100 mg PO TID Hypertension # 270 02/21/24 08/09/24 Rx tabs cholecalciferol (vitamin D3) 50 100 mcg PO QDAY supple ment 03/15/24 08/09/24 History mcg (2,000 unit) capsule clopidogrel 75 mg tablet 75 mg PO QDAY Anticoagulant 03/15/24 08/23/24 History nebulizer kits #1 ea 03/15/24 Unknown Rx nebulizer machine #1 ea 03/15/24 Unknown Rx semaglutide 1 mg/dose (4 mg/3 mL) 1 mg subcut FR DM 08/23/24 History subcutaneous pen injector (Ozempic) therapeutic multivitamin 1 tab PO QAM health 03/15/24 Unknown History budesonide 1 mg/2 mL suspension 1 mg (2 mL) inhalation BID COPD 05/03/24 08/09/24 Rx for nebulization #120 mL insulin glargine 100 unit/mL (3 33 unit subcut QAM Obi g acting 07/22/24 08/09/24 History mL) subcutaneous pen (Lantus Insulin Solostar U-100 Insulin) insulin lispro 100 unit/mL 5 unit subcut 0800 Glucose Control 07/22/24 08/09/24 History subcutaneous pen insulin lispro 100 unit/mL 6 unit subcut 1200 Glucose Control 07/22/24 08/08/24 History subcutaneous pen insulin lispro 100 unit/mL 8 unit subcut 1800 Glucose Control 07/22/24 08/08/24 History subcutaneous pen acetaminophen 500 mg tablet 1,000 mg PO Q8H PRN pain 0 08/01/24 Unknown History albuterol sulfate 2.5 mg/3 mL 2.5 mg inhalation BID RI N 08/01/24 Unknown History (0.083 %) solution for nebulization shortness of breat h or wheezing ammonium lactate 5 % lotion 1 applic topical QD-BID RI N dry 08/01/24 08/09/24 History skin cinacalcet 30 mg tablet 30 mg PO BID supplement 07/1008/09/24 History oxycodone 5 mg tablet 5 mg PO Q6H PRN Pain Score 6 -10 08/01/24 Unknown History fenofibrate nanocrystallized 145 145 mg PO DAILY 08/15 Unknown History mg tablet furosemide 40 mg tablet 60 mg PO QDAY water pill 12/02 Unknown History potassium chloride 20 mEq 20 meq PO QDAY Supplement #0 tabs 08/15/24 Unknown Rx tablet,extended release(part/cryst) spironolactone 25 mg tablet 25 mg PO DAILY #1 TAB 12/02 Unknown Rx Lactobacillus rhamnosus GG 10 1 cap PO BID 09/03/24 Un known History billion cell capsule (Culturelle) cefdinir 300 mg capsule 300 mg PO BID 09/03/24 Unkno wn History Allergy/AdvReac Type Severity Reaction Status Date / Time No Known Allergies Allergy Verified 09/03/24 11:58 Family History Mother Colon cancer Sister CAD (coronary artery disease) CABG x 5 Diabetes Myocardial infarction, Onset Age: 67 Father Crohns disease Surgical History History of cardiac catheterization History of appendectomy History of eye surgery History of intestinal surgery History of appendectomy History of tonsillectomy and adenoidectomy History of knee surgery History of hip replacement 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) History of coronary artery stent placement (10/21/22) Social History household members: none housing: apartment current occupational status: retired pets and animals: No other: Hx working in [employer] and [employer]. Smoking Status: Never smoker second hand exposure: Yes alcohol intake: former year quit: 2003 details: Sober since 2003. substance use type: former substance user Date of last use: 04/10/2004 and marijuana caffeine: Yes Type: carbonated beverages Number of servings: 2 and coffee Number of servings: 2 what type of physical activity do you participate in: none ROS Constitutional Constitutional: Denies fatigue, fever(s), poor appetite, weight gain or weight loss Gastrointestinal Gastrointestinal: Denies belching, bloating, change in bowel habits, change in stool character, chewing difficulty, coffee ground emesis, constipation, cramping, diarrhea, dyspepsia, dysphagia, early satiety, excessive flatus, fecal incontinence, heartburn, hematemesis, hematochezia, hemorrhoids, loose stools, melena, nausea, odynophagia, rectal bleeding, tenesmus, vomiting or weight changes Vital Signs Vital Signs Vital Signs: 09/04/24 11:08 09/04/24 11:08 Temperature 97.2 F L Temperature Source Temporal Pulse Rate 71 Respiratory Rate 16 Respiratory Pattern Normal Blood Pressure 161/79 H Blood Pressure Mean 106 Blood Pressure Source Monitor Blood Pressure Position Sitting Blood Pressure Location Left Arm Pulse Ox 100 Oxygen Delivery Method Nasal Cannula Oxygen Flow Rate (L/min) 3 Weight Weight: 270 lb Body Mass Index (BMI) 38.7 Physical Exam Const alert, oriented x3, no apparent distress and healthy appearing General Appearance: cooperative GI normal to inspection, nondistended, normoactive bowel sounds, soft to palpation, non-tender and non-distended Percussion: normal to percussion Rectal Exam: deferred Assessment & Plan Assessment/Plan (1) Right upper quadrant abdominal pain: PLAN: Assessment and Plan Assessment and Plan (1) Right upper quadrant abdominal pain: Status: Acute Plan: This is a 68 yo male pt here today for evaluation of RUQ pain. This has been ongoing since dec 2023 after he broke several ribs after a fall at the [facility]. He does have a hx of gastric ulcer with last EGD in July 2023 revealing oozing gastric ulcers. He will undergo repeat EGD to assess his upper GI tract to determine etiology of his pain. He will also have a gallbladder US to rule out biliary orgin. His pain may be musculoskeletal as it began after having a fall and worsens with certain movements however food is a trigger so will rule out GI cause. -EGD -Gallbladder US -f/u after procedure Orders: Orders Gallbladder Today R10.11 - Right upper quadrant pain
--- NOTE | 2024-09-04 11:30 | EGD_PTH ---
PATIENT: ELIANE KAY LOC: EN U#:[id number] AGE/SX: 68/M ROOM: RE09/04/[address]: Dr. Louie Gonzales DO : 1955 BED: DIS: 09/04/2024 SPEC #: [id number] RECD: 09/04/24 13:15 STATUS: ESTRELLITA STEPH #: [id number] PATRICIO: 09/04/24 11:[address]: Louie Gonzales DEPT: SURGICAL PATHOLOGY RECD BY: Jimbo Devi ENTERED: 09/04/24 13:38 SP TYPE: EGD BIOPSY KAYE DR: Dr. Hank Negrete MD Tissues: A - Esophagus, NOS B - Gastric mucous membrane C - Duodenum, NOS Procedures: Immunohistochemical Stains Surgery Specimen Level IV HEADER OPERATION: EGD with biopsy PRE-OP DIAGNOSIS: Right upper quadrant abdominal pain TISSUE SUBMITTED: A- Distal esophagus biopsy, B- Gastric antrum biopsy, C- Duodenum biopsy MICROSCOPIC DIAGNOSIS A. Esophagus, distal, biopsy: * Squamous mucosa with reactive change. * Columnar mucosa negative for goblet cell metaplasia. B. Stomach, antrum, polyp, biopsy: * Polypoid antral mucosa with active chronic inflammation. * IHC is POSITIVE for H pylori organisms. C. Small bowel, duodenum, biopsy: * Normal villous architecture. * Pigmented macrophages in the villous tips positive for iron (iron special stain) - see note. * Note: Iron-containing macrophages is suggestive of ingestion of iron containing compounds. Recommend clinical correlation. MICROSCOPIC DESCRIPTION Slides are reviewed. All matched controls reacted appropriately. These tests were developed and their performance characteristics determined by [facility]. They may not have been cleared or approved by the U.S. Food and Drug Administration. The FDA has determined that such clearance or approval is not necessary.? The above immunohistochemical/dualISH?markers are ordered and reviewed by the Pathologist. GROSS DESCRIPTION A. Received in formalin in a container labeled with the patient's name, date of , and distal esophagus biopsy are multiple mejia-pink fragments of mucosal tissue measuring 0.8 x 0.5 x 0.3 cm in aggregate. Submitted in toto in A1. B. Received in formalin in a container labeled with the patient's name, date of , and gastric antrum polyp biopsy for H. pylori is a 0.6 x 0.2 x 0.2 cm strip of mejia-pink mucosal tissue. Submitted in toto in B1. C. Received in formalin in a container labeled with the patient's name, date of , and duodenum biopsy are multiple mejia-pink fragments of mucosal tissue measuring 0.5 x 0.5 x 0.2 cm in aggregate. Submitted in toto in C1. B 09-04-2024 CPT:91136h0,05603, 99754
[2024-09-04 11:42] LABS: Bedside Glucose 125 mg/dL (74-106)
--- NOTE | 2024-09-04 11:47 | PRE.ANES_ITS ---
ASA Classification* ASA Classification ASA Classification: 3 Assessment & Plan Anesthesia* Anesthesia Assessment Anesthesia Assessment: Discussed sedation and/or anesthesia options, risks, benefits, and alternatives with patient/parents/legal guardian/POA. Questions invited. The patient/parents/legal guardian/POA seems to understand and agrees to proceed with anesthesia plan. Reviewed the physical assessment, medical history, allergy history and patient home medications list prior to surgery/procedure/anesthetic and documented any changes. Performed airway and anesthesia risk assessments. Anesthesia Type Anesthesia Type: MAC History Source History Obtained from:: Patient and Chart Anesthesia Focused Assessment* Temperature: 97.2 F Pulse Rate: 71 Blood Pressure: 161/79 Respiratory Rate: 16 Pulse Ox: 100 Oxygen Delivery Method: Nasal Cannula Oxygen Flow Rate (L/min): 3 Airway Assessment Mouth opens: >3 cm Mallampati Score: I Teeth Condition: Chipped/Broken (Multiple chipped teeth in the front.) Neck Range of motion (ROM): Full ROM Focused Labs Anesthesia Preop lab: CBC WBC 8.4 K/mm3 (4.4-11.0) 08/12/24 05:36 08/12/24 RBC 3.87 M/mm3 (4.6-6.2) L 08/12/24 05:36 08/12/24 Hgb 9.9 g/dL (13.0-16.5) L 08/12/24 05:36 08/12/24 Hct 32.2 % (40-54) L 08/12/24 05:36 08/12/24 Plt Count 272 K/mm3 (150-450) 08/12/24 05:36 08/12/24 CHEMISTRY Potassium 3.5 mmol/L (3.3-5.1) 08/12/24 05:36 08/12/24 Sodium 142 mmol/L (133-145) 08/12/24 05:36 08/12/24 Magnesium 1.8 mg/dL (1.6-2.6) 06/08/23 06:30 06/08/23 Phosphorus 2.3 mg/dL (2.5-4.9) L 06/08/23 06:30 06/08/23 BUN 40 mg/dL (4-19) H 08/12/24 05:36 08/12/24 Creatinine 1.91 mg/dL (0.70-1.20) H 08/12/24 05:36 Glucose 52 mg/dL (70-99) L 08/12/24 05:36 08/12/24 POC Glucose 125 mg/dL (74-106) H 09/04/24 11:18 09/04/24 TSH 2.340 uIU/mL (0.358-3.740) 12/12/23 10:19 07/01 COAG PT 16.2 SECONDS (11.7-14.9) H 07/28/23 15:27 07/09 01/01 Pre-Assessment Diagnosis/Proposed Procedure Planned Operative Procedure(s): EGD Anesthesia History Anesthesia History - community midwife: Anesthesia History - community midwife Hx Hospitalization Yes: 08/09/24-08/12/24 FOR CHF 09/03/24 12:16 AND CELLULITIS Any Problems With Anesthesia No 09/03/24 12:16 Cholinesterase deficiency No 09/03/24 12:16 You/Your Family Experience No 09/03/24 12:16 fever (hyperthermia) with Relationship Recent Exposure to Contagious No 09/04/24 11:08 Disease Does patient have nerve No 09/03/24 12:16 stimulator Patient instructed to have device shut off --Does patient have Pacemaker Yes 09/04/24 11:08 or ICD? When Was Last Pacemaker Check QUESTION #4 FULL TEXT: You/Your Family Experience fever (hyperthermia) with Anesthesia Last Oral Intake Last Oral intake: Last Oral Intake NPO since 23:00 09/04/24 11:08 Meds taken in AM with sips of No 09/04/24 11:08 water? Meds patient instructed to take am of surgery PONV PONV - community midwife: PONV - community midwife Female No 09/03/24 12:16 HX of Motion Sickness No 09/03/24 12:16 HX of N/V After Surgery No 09/03/24 12:16 Non-Smoker Yes 09/03/24 12:16 Duration of Surgery greater No 09/03/24 12:16 than 60 minutes Number of Risk Factors 1 09/03/24 12:16 PONV Score Low Risk 09/03/24 12:16 Height & Weight Height & Weight: Anesthesia: Height & Weight Height 5 ft 10 in 09/04/24 11:08 Weight: 122.47 kg 09/04/24 11:08 Body Mass Index (BMI) 38.7 09/04/24 11:08 Respiratory Assessment Respiratory Assessment - community midwife: Respiratory Tract Infection Hx - community midwife Hx Respiratory Tract Infection No 09/03/24 12:16 Any additional information?: Yes Hx Respiratory Tract Infection: Yes History of Anesthesia Respiratory Infection details: Patient had COVID couple months ago. He is over the infection. However he is still requiring nasal cannula oxygen. STOP Sleep Apnea STOP Sleep Apnea - community midwife: STOP Sleep Apnea - community midwife Hx Hypertension Yes 09/03/24 12:16 Hx Sleep Apnea Yes 09/03/24 12:16 CPAP No 09/03/24 12:16 BIPAP Yes 09/03/24 12:16 Do you snore loudly (louder than talking or can be heard Do you often feel tired/ fatigued/ sleepy during daytime? Has anyone observed you stop breathing during sleep? STOP Results Positive 09/03/24 12:16 QUESTION #5 FULL TEXT : Do you snore loudly (louder than talking or can be heard through closed doors)? 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 Specify any problems Hx of Preganancy in last 3 N/A 09/03/24 12:16 Months Nurse Filling Out Transfusion DSCHRIBER 09/03/24 12:16 & Questions: Date: 09/03/24 09/03/24 12:16 Time: 12:17 09/03/24 12:16 Patient unable to answer at this time (ie. confused, unrespo /Reproduction History /Reproductive History - community midwife: /Reproductive Hx- community midwife Hx Now No 09/03/24 12:16 Gestational Age (in weeks): EDC: Hx Hx Para Hx Section SAB No 09/03/24 12:16 Active Medications Active Medications: Current Medications Generic Name Dose Route Start Last Admin Trade Name Freq PRN Reason Stop Dose Admin Lactated Ringer's 1,000 mls @ 15 mls/hr 09/04/24 11:00 09/04/24 11:24 IV 15 mls/hr .Q48H TOMMY Administration PFSH Medical History Low iron Insulin dependent diabetes mellitus On home oxygen therapy Cellulitis and abscess of left leg Acute exacerbation of CHF (congestive heart failure) CKD (chronic kidney disease), stage III Major depressive disorder Peripheral vascular disease Pacemaker Obesity Acute hypoxemic respiratory failure Lives in fci Loss of hearing Tinnitus of both ears Wears glasses Anxiety Pressure ulcer Thyroid disease Uses wheelchair Ambulates with cane Arthritis History of renal disease Hepatitis Pulmonary embolism Back pain Injury of head and neck Hypotension Dietary restriction History of ulceration History of GI bleed History of diverticulitis Non-smoker COPD (chronic obstructive pulmonary disease) Shortness of breath on exertion History of edema History of echocardiogram History of stress test Cardiology follow-up encounter Chest pain Presence of permanent cardiac pacemaker Sick sinus syndrome Alcohol abuse Depression GERD (gastroesophageal reflux disease) BiPAP (biphasic positive airway pressure) dependence Irregular heart beat Congestive heart failure (CHF) Hypertension DVT (deep venous thrombosis) Fall Intermittent chest pain Gastric ulcer GI bleed Heart failure with preserved ejection fraction Atrial fibrillation Olecranon bursitis Debility Dizziness Anxiety and depression Vertigo Shortness of breath Diabetes Asthma Anemia Dark stools Benign essential HTN MEANS (dyspnea on exertion) Osteopenia Primary hyperparathyroidism Chest pain Hyperparathyroidism Seizures Adult failure to thrive Type 2 diabetes mellitus Chronic pain of both knees Vitamin D deficiency Renal insufficiency Fatigue Arthritis Colon cancer screening Health care maintenance Acute midline thoracic back pain Hyperlipidemia Hypercalcemia Secondary pulmonary hypertension Depression Congestive heart failure Chronic wound of head Sciatica Insomnia Pure hypercholesterolemia Atherosclerosis of coronary artery of [place] heart without angina pectoris Chronic hypoxemic respiratory failure FAVIAN (obstructive sleep apnea) Dyspnea on exertion History of pulmonary embolism Acquired left ventricular hypertrophy Abnormal chest xray Near syncope Hypoxia Hypertriglyceridemia Morbid obesity with BMI of 40.0-44.9, adult Osteoarthritis History of DVT (deep vein thrombosis) Home Medications ?Medication ?Instructions ?Recorded ?Last Taken ?Type ranolazine 500 mg tablet,extended 500 mg PO BID chest pain #180 tabs 12/20/22 08/09/24 Rx release,12 hr ferrous sulfate 325 mg (65 mg 325 mg PO DAILY suppleme nt #90 tabs 05/19/23 08/09/24 Rx iron) tablet paroxetine HCl 40 mg tablet 40 mg PO DAILY mood #30 ta bs 05/19/23 08/09/24 Rx pantoprazole 40 mg tablet,delayed 40 mg PO DAILY GI #9 0 tabs 06/01/23 08/09/24 Rx release metoprolol succinate 50 mg 50 mg PO Q12H blood pressur e #60 06/12/23 08/09/24 Rx tablet,extended release 24 hr tabs sucralfate 1 gram tablet 1 g PO 1HR_ACHS GERD #0 tabs 07/31/23 08/09/24 Rx bisacodyl 10 mg rectal suppository 10 mg NC DAILY PRN constipation 08/08/23 Unknown History insulin lispro 100 unit/mL 1 sliding scale dose subcut 08/08/23 08/09/24 History subcutaneous solution (Humalog USEASDIRECTD SS U-100 Insulin) magnesium hydroxide 400 mg/5 mL 30 ml PO DAILY PRN con stipation 08/08/23 Unknown History oral suspension (Milk of Magnesia) mineral oil (Fleet Mineral Oil 118 ml NC DAILY PRN con stipation 08/08/23 Unknown History enema) hydralazine 100 mg tablet 100 mg PO TID Hypertension # 270 02/21/24 08/09/24 Rx tabs cholecalciferol (vitamin D3) 50 100 mcg PO QDAY supple ment 03/15/24 08/09/24 History mcg (2,000 unit) capsule clopidogrel 75 mg tablet 75 mg PO QDAY Anticoagulant 03/15/24 08/23/24 History nebulizer kits #1 ea 03/15/24 Unknown Rx nebulizer machine #1 ea 03/15/24 Unknown Rx semaglutide 1 mg/dose (4 mg/3 mL) 1 mg subcut FR DM 08/23/24 History subcutaneous pen injector (Ozempic) therapeutic multivitamin 1 tab PO QAM health 03/15/24 Unknown History budesonide 1 mg/2 mL suspension 1 mg (2 mL) inhalation BID COPD 05/03/24 08/09/24 Rx for nebulization #120 mL insulin glargine 100 unit/mL (3 33 unit subcut QAM Obi g acting 07/22/24 08/09/24 History mL) subcutaneous pen (Lantus Insulin Solostar U-100 Insulin) insulin lispro 100 unit/mL 5 unit subcut 0800 Glucose Control 07/22/24 08/09/24 History subcutaneous pen insulin lispro 100 unit/mL 6 unit subcut 1200 Glucose Control 07/22/24 08/08/24 History subcutaneous pen insulin lispro 100 unit/mL 8 unit subcut 1800 Glucose Control 07/22/24 08/08/24 History subcutaneous pen acetaminophen 500 mg tablet 1,000 mg PO Q8H PRN pain 0 08/01/24 Unknown History albuterol sulfate 2.5 mg/3 mL 2.5 mg inhalation BID NC N 08/01/24 Unknown History (0.083 %) solution for nebulization shortness of breat h or wheezing ammonium lactate 5 % lotion 1 applic topical QD-BID NC N dry 08/01/24 08/09/24 History skin cinacalcet 30 mg tablet 30 mg PO BID supplement 07/1008/09/24 History oxycodone 5 mg tablet 5 mg PO Q6H PRN Pain Score 6 -10 08/01/24 Unknown History fenofibrate nanocrystallized 145 145 mg PO DAILY 08/15 Unknown History mg tablet furosemide 40 mg tablet 60 mg PO QDAY water pill 12/02 Unknown History potassium chloride 20 mEq 20 meq PO QDAY Supplement #0 tabs 08/15/24 Unknown Rx tablet,extended release(part/cryst) spironolactone 25 mg tablet 25 mg PO DAILY #1 TAB 12/02 Unknown Rx Lactobacillus rhamnosus GG 10 1 cap PO BID 09/03/24 Un known History billion cell capsule (Culturelle) cefdinir 300 mg capsule 300 mg PO BID 09/03/24 Unkno wn History Allergy/AdvReac Type Severity Reaction Status Date / Time No Known Allergies Allergy Verified 09/03/24 11:58 Family History Mother Colon cancer Sister CAD (coronary artery disease) CABG x 5 Diabetes Myocardial infarction, Onset Age: 67 Father Crohns disease Surgical History History of cardiac catheterization History of appendectomy History of eye surgery History of intestinal surgery History of appendectomy History of tonsillectomy and adenoidectomy History of knee surgery History of hip replacement 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) History of coronary artery stent placement (10/21/22) Social History household members: none housing: apartment current occupational status: retired pets and animals: No other: 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 Smoking Status: Never smoker second hand exposure: Yes alcohol intake: former year quit: 2003 details: Sober since 2003. substance use type: former substance user Date of last use: 04/10/2004 and marijuana caffeine: Yes Type: carbonated beverages Number of servings: 2 and coffee Number of servings: 2 what type of physical activity do you participate in: none Review of Systems (Anesthesia) ROS Narrative System reviewed and no additional complaints, except as documented. Physical Exam Resp clear to auscultation bilaterally
--- NOTE | 2024-09-04 12:21 | OP.CCLET_ITS ---
09/04/2024 Hank Negrete MD [address] [id number] Re : Upper GI endoscopy procedure for Shade Teixeira Dear Dr. Negrete This procedure was performed on Wednesday, September 04, 2024. 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 Biopsied. - A few gastric polyps. Resected and retrieved. - Gastroparesis, secondary to diabetes mellitus type II. - Chronic duodenitis. Biopsied. Recommendations : - Discharge patient to home. - Resume previous diet. - Continue present medications. - Await pathology results. - Gastric emptying study My findings are described in the full procedure note, which is enclosed. If I can be of further assistance, please feel free to contact me at . Sincerely, Louie Gonzales, 09/04/2024 12:20:36 PM This report has been signed electronically.
--- NOTE | 2024-09-04 12:21 | OP.EGD_ITS ---
Patient Name: Shade Teixeira Procedure Date: 09/04/2024 11:42 AM Date of : 1955 Age: 68 Procedure: Upper GI endoscopy Indications: Epigastric abdominal pain, Esophageal reflux, Follow-up of Tuttle's esophagus Providers: DO Margarita Pruitt MD: Hank Negrete MD Medicines: Monitored Anesthesia Care Patient Profile: This is a 68 year old male. Refer to note in patient chart for documentation of history and physical. Patient has symptoms of acute right upper quadrant abdominal pain, chronic heartburn and chronic nausea. Complications: No immediate complications. Procedure: Pre-Anesthesia Assessment: - Prior to the procedure, a History and Physical was performed, and patient medications and allergies were reviewed. The patient is competent. The risks and benefits of the procedure and the sedation options and risks were discussed with the patient. All questions were answered and informed consent was obtained. Patient identification and proposed procedure were verified by the physician. Mental Status Examination: alert and oriented. Airway Examination: normal oropharyngeal airway and neck mobility. Respiratory Examination: clear to auscultation. CV Examination: normal. Prophylactic Antibiotics: The patient does not require prophylactic antibiotics. Prior Anticoagulants: The patient has taken no anticoagulant or antiplatelet agents except for NSAID medication. ASA Grade Assessment: II - A patient with mild systemic disease. After reviewing the risks and benefits, the patient was deemed in satisfactory condition to undergo the procedure. The anesthesia plan was to use monitored anesthesia care (MAC). Immediately prior to administration of medications, the patient was re-assessed for adequacy to receive sedatives. The heart rate, respiratory rate, oxygen saturations, blood pressure, adequacy of pulmonary ventilation, and response to care were monitored throughout the procedure. The physical status of the patient was re-assessed after the procedure. After obtaining informed consent, the endoscope was passed under direct vision. Throughout the procedure, the patient's blood pressure, pulse, and oxygen saturations were monitored continuously. The gastroscope was introduced through the mouth, and advanced to the third part of the duodenum. Small bowel enteroscopy was deemed necessary. The upper GI endoscopy was accomplished without difficulty. The patient tolerated the procedure well. Scope In: 12:04:39 PM Scope Out: 12:08:57 PM Total Procedure Duration Time 0 hours 4 minutes 18 seconds Findings: There were esophageal mucosal changes suspicious for long-segment Tuttle's esophagus present in the lower third of the esophagus. The maximum longitudinal extent of these mucosal changes was 5 cm in length. Mucosa was biopsied with a cold forceps for histology in a targeted manner at intervals of 1 cm in the lower third of the esophagus. One specimen bottle was sent to pathology. Verification of patient identification for the specimen was done. Estimated blood loss was minimal. A few 8 mm sessile polyps with no stigmata of recent bleeding were found in the gastric antrum. The polyp was removed with a jumbo cold forceps. Resection and retrieval were complete. Verification of patient identification for the specimen was done. Estimated blood loss was minimal. Suspect gastroparesis due to absence of peristalsis, patient symptoms and retained gastric contents. Patchy mild inflammation characterized by erythema, friability and granularity was found in the duodenal bulb and in the first portion of the duodenum. Biopsies were taken with a cold forceps for histology. Verification of patient identification for the specimen was done. Estimated blood loss was minimal. 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 Biopsied. - A few gastric polyps. Resected and retrieved. - Gastroparesis, secondary to diabetes mellitus type II. - Chronic duodenitis. Biopsied. Recommendation: - Discharge patient to home. - Resume previous diet. - Continue present medications. - Await pathology results. - Gastric emptying study Procedure Code(s): --- Professional --- 54734, Small intestinal endoscopy, enteroscopy beyond second portion of duodenum, not including ileum; with biopsy, single or multiple CPT copyright 2021 [employer]. All rights reserved. The codes documented in this report are preliminary and upon slot machine key person review may be revised to meet current compliance requirements. Louie Gonzales DO 09/04/2024 12:20:36 PM This report has been signed electronically. Number of Addenda: 0 Note Initiated On: 09/04/2024 11:42 AM
--- NOTE | 2024-09-04 12:22 | PCM.POST.ANE ---
Anesthesia: Postop Eval I Current Vital Signs Temperature: 97.8 F Pulse Rate: 70 Blood Pressure: 129/72 Respiratory Rate: 16 Pulse Ox: 100 Oxygen Delivery Method: Nasal Cannula Oxygen Flow Rate (L/min): 3 Assessment Airway patent: Yes Spontaneous unlabored respirations: Yes Mental status: Awake and Calm nausea: No Vomiting: No Anesthesia Complication: No Fluid Hydration Crystalloid volume administer (ml): 300 Total IV fluid infused: 300 Progress Note Anesthesia document: Postop Eval 1 completed: Yes
--- NOTE | 2024-09-04 13:33 | PCM.POSTANE2 ---
Anesthesia Postop Eval I Sum Postop Eval Completion status Anesthesia document: Postop Eval 1 completed: Yes Anesthesia Postop Eval I Summary Anesthesia Postop Eval I Summary: Anesthesia Postop Eval I: Assessment Summary Airway patent Yes 09/04/24 12:23 [email or web address] Spontaneous unlabored Yes 09/04/24 12:23 [email or web address] respirations Mental status Awake,Calm 09/04/24 12:23 [email or web address] nausea No 09/04/24 12:23 [email or web address] Vomiting No 09/04/24 12:23 [email or web address] Anesthesia Postop Eval I: Fluid Summary Crystalloid volume administer 300 09/04/24 12:23 [email or web address] (ml) Colloids volume administered ( ml) Blood Product volume administered (ml) Total IV fluid infused 300 09/04/24 12:23 [email or web address] Anesthesia Postop Eval I: Summary Notes Anesthesia Complication No 09/04/24 12:23 [email or web address] Anesthesia Complication Comment: Post-operative progress note Anesthesia: Postop Eval II Evaluation Mental status: Awake Pain Level: 0 nausea: No Vomiting: No
== END 2024-09-04 13:18 | disposition home or self-care (01) ==
LOC: EN 10:51 → AC 10:53
PROVIDERS: PCP Family Medicine; Referring Provider Family Medicine; Visit Provider Internal Medicine Gastroenterology
PROC: 0DJ08ZZ Inspection of Upper Intestinal Tract, Via Natural or Artificial Opening Endoscopic (ICD-10-PCS; CPT 43235; principal; 2024-09-04 11:25)
DX: K29.50 Unspecified chronic gastritis without bleeding (principal); I13.0 Hypertensive heart and chronic kidney disease with heart failure and stage 1 through stage 4 chronic kidney disease, or unspecified chronic kidney disease; I50.31 Acute diastolic (congestive) heart failure; J44.9 Chronic obstructive pulmonary disease, unspecified; E11.22 Type 2 diabetes mellitus with diabetic chronic kidney disease; E11.43 Type 2 diabetes mellitus with diabetic autonomic (poly)neuropathy; N18.30 Chronic kidney disease, stage 3 unspecified; K22.70 Barrett's esophagus without dysplasia; K31.7 Polyp of stomach and duodenum; I25.10 Atherosclerotic heart disease of native coronary artery without angina pectoris; E78.00 Pure hypercholesterolemia, unspecified; K29.80 Duodenitis without bleeding; K31.84 Gastroparesis; Z87.891 Personal history of nicotine dependence; K21.9 Gastro-esophageal reflux disease without esophagitis
CPT/HCPCS: 43239; 82962; 88305; 88342; J2405

== ENCOUNTER 2024-10-24 15:41 | Inpatient (IN) | payer MEDICARE, MEDICAID, SELFPAY ==
[2023-03-13 16:01] VITALS: BMI 43.3
[2024-10-24] VITALS (11 sets, daily range): BP systolic 132–167; BP diastolic 60–106; PULSE 70–78; RESP 12–22; TEMP 36.6–37; O2SAT 96–100; BMI 38.4; BMI 38.5
--- NOTE | 2024-10-24 16:25 | RAD_ITS ---
PROCEDURE: CHEST 1 VIEW (PORTABLE) 10/24/2024 REASON FOR EXAM: DYSPNEA TECHNIQUE: Frontal view of the chest. COMPARISON: Portable chest, 08/09/2024. FINDINGS: There is cardiomegaly, pulmonary venous hypertension and pulmonary interstitial edema consistent with congestive heart failure. There are no significant pleural effusions evident. There is a dual lead pacemaker. RAD/Chest 1 View (Portable) IMPRESSION: Congestive heart failure. Reading Location: [place] [id number]
--- NOTE | 2024-10-24 16:28 | EDS_ITS ---
HPI <ANJEL Medina - Last Filed: 10/24/24 21:57> History of Present Illness Chief Complaint: Shortness of Breath Narrative Narrative: 68-year-old male with past medical history of HTN, HLD, DM2, gastroparesis, COPD on 2 to 4 L at baseline, CHF, sick sinus syndrome status post pacemaker, A-fib, FAVIAN, GI bleed, iron deficiency anemia presents with 1 week of chest pain and shortness of breath. He states it feels like tightness in the center of his chest. He has felt short of breath more so with activity. He has not had to increase his baseline oxygen. [facility] but did not feel like they helped. Today the chest pain seemed worse with sharp pains towards his left shoulder. He does have a history of DVT/PE but is no longer on blood thinners due to GI bleed. He is on Plavix. He also has chronic leg swelling and is on Lasix 60 mg once daily. He denies fever, chills, and states he only coughs very occasionally. He denies smoking history. [facility] <ANJEL Medina - Last Filed: 10/24/24 21:57> [facility] Medical History (Updated 10/24/24 @ 23:[address] Ryan Noel, ) Hypercalcemia Acute exacerbation of CHF (congestive heart failure) Low iron Insulin dependent diabetes mellitus On home oxygen therapy Cellulitis and abscess of left leg CKD (chronic kidney disease), stage III Major depressive disorder Peripheral vascular disease Pacemaker Obesity Acute hypoxemic respiratory failure Lives in usp Loss of hearing Tinnitus of both ears Wears glasses Anxiety Pressure ulcer Thyroid disease Uses wheelchair Ambulates with cane Arthritis History of renal disease Hepatitis Pulmonary embolism Back pain Injury of head and neck Hypotension Dietary restriction History of ulceration History of GI bleed History of diverticulitis Non-smoker COPD (chronic obstructive pulmonary disease) Shortness of breath on exertion History of edema History of echocardiogram History of stress test Cardiology follow-up encounter Chest pain Presence of permanent cardiac pacemaker Sick sinus syndrome Alcohol abuse Depression GERD (gastroesophageal reflux disease) BiPAP (biphasic positive airway pressure) dependence Irregular heart beat Congestive heart failure (CHF) Hypertension DVT (deep venous thrombosis) Fall Intermittent chest pain Gastric ulcer GI bleed Heart failure with preserved ejection fraction Atrial fibrillation Olecranon bursitis Debility Dizziness Anxiety and depression Vertigo Shortness of breath Diabetes Asthma Anemia Dark stools Benign essential HTN MEANS (dyspnea on exertion) Osteopenia Primary hyperparathyroidism Chest pain Hyperparathyroidism Seizures Adult failure to thrive Type 2 diabetes mellitus Chronic pain of both knees Vitamin D deficiency Renal insufficiency Fatigue Arthritis Colon cancer screening Health care maintenance Acute midline thoracic back pain Hyperlipidemia Hypercalcemia Secondary pulmonary hypertension Depression Congestive heart failure Chronic wound of head Sciatica Insomnia Pure hypercholesterolemia Atherosclerosis of coronary artery of [place] heart without angina pectoris Chronic hypoxemic respiratory failure FAVIAN (obstructive sleep apnea) Dyspnea on exertion History of pulmonary embolism Acquired left ventricular hypertrophy Abnormal chest xray Near syncope Hypoxia Hypertriglyceridemia Morbid obesity with BMI of 40.0-44.9, adult Osteoarthritis History of DVT (deep vein thrombosis) Home Medications ?Medication ?Instructions ?Recorded ?Last Taken ?Type ranolazine 500 mg tablet,extended 500 mg PO BID chest pain #180 tabs 12/20/22 08/09/24 Rx release,12 hr ferrous sulfate 325 mg (65 mg 325 mg PO DAILY suppleme nt #90 tabs 05/19/23 08/09/24 Rx iron) tablet paroxetine HCl 40 mg tablet 40 mg PO DAILY mood #30 ta bs 05/19/23 08/09/24 Rx pantoprazole 40 mg tablet,delayed 40 mg PO DAILY GI #9 0 tabs 06/01/23 08/09/24 Rx release metoprolol succinate 50 mg 50 mg PO Q12H blood pressur e #60 06/12/23 08/09/24 Rx tablet,extended release 24 hr tabs sucralfate 1 gram tablet 1 g PO 1HR_ACHS GERD #0 tabs 07/31/23 08/09/24 Rx bisacodyl 10 mg rectal suppository 10 mg VT DAILY PRN constipation 08/08/23 Unknown History insulin lispro 100 unit/mL 1 sliding scale dose subcut 08/08/23 08/09/24 History subcutaneous solution (Humalog USEASDIRECTD SS U-100 Insulin) magnesium hydroxide 400 mg/5 mL 30 ml PO DAILY PRN con stipation 08/08/23 Unknown History oral suspension (Milk of Magnesia) mineral oil (Fleet Mineral Oil 118 ml VT DAILY PRN con stipation 08/08/23 Unknown History enema) hydralazine 100 mg tablet 100 mg PO TID Hypertension # 270 02/21/24 08/09/24 Rx tabs cholecalciferol (vitamin D3) 50 100 mcg PO QDAY supple ment 03/15/24 08/09/24 History mcg (2,000 unit) capsule clopidogrel 75 mg tablet 75 mg PO QDAY Anticoagulant 03/15/24 08/23/24 History nebulizer kits #1 ea 03/15/24 Unknown Rx nebulizer machine #1 ea 03/15/24 Unknown Rx semaglutide 1 mg/dose (4 mg/3 mL) 1 mg subcut FR DM 08/23/24 History subcutaneous pen injector (Ozempic) therapeutic multivitamin 1 tab PO QAM health 03/15/24 Unknown History budesonide 1 mg/2 mL suspension 1 mg (2 mL) inhalation BID COPD 05/03/24 08/09/24 Rx for nebulization #120 mL insulin glargine 100 unit/mL (3 33 unit subcut QAM Obi g acting 07/22/24 08/09/24 History mL) subcutaneous pen (Lantus Insulin Solostar U-100 Insulin) insulin lispro 100 unit/mL 5 unit subcut 0800 Glucose Control 07/22/24 08/09/24 History subcutaneous pen insulin lispro 100 unit/mL 6 unit subcut 1200 Glucose Control 07/22/24 08/08/24 History subcutaneous pen insulin lispro 100 unit/mL 8 unit subcut 1800 Glucose Control 07/22/24 08/08/24 History subcutaneous pen acetaminophen 500 mg tablet 1,000 mg PO Q8H PRN pain 0 08/01/24 Unknown History albuterol sulfate 2.5 mg/3 mL 2.5 mg inhalation BID VT N 08/01/24 Unknown History (0.083 %) solution for nebulization shortness of breat h or wheezing ammonium lactate 5 % lotion 1 applic topical QD-BID VT N dry 08/01/24 08/09/24 History skin cinacalcet 30 mg tablet 30 mg PO BID supplement /08/0208/09/24 History oxycodone 5 mg tablet 5 mg PO Q6H PRN Pain Score 6 -10 08/01/24 Unknown History fenofibrate nanocrystallized 145 145 mg PO DAILY 08/15 Unknown History mg tablet furosemide 40 mg tablet 60 mg PO QDAY water pill 12/02 Unknown History potassium chloride 20 mEq 20 meq PO QDAY Supplement #0 tabs 08/15/24 Unknown Rx tablet,extended release(part/cryst) spironolactone 25 mg tablet 25 mg PO DAILY #1 TAB 12/02 Unknown Rx Lactobacillus rhamnosus GG 10 1 cap PO BID 09/03/24 Un known History billion cell capsule (Culturelle) oxycodone 5 mg tablet,oral ONLY 5 mg PO 0600 pain 10/08 11/01 Unknown History (not feeding tubes) (RoxyBond) tamsulosin 0.4 mg capsule 0.4 mg PO QHS 10/24/24 Unkno wn History Allergy/AdvReac Type Severity Reaction Status Date / Time No Known Allergies Allergy Verified 10/24/24 15:45 Family History Mother Colon cancer Sister CAD (coronary artery disease) CABG x 5 Diabetes Myocardial infarction, Onset Age: 67 Father Crohns disease Surgical History History of cardiac catheterization History of appendectomy History of eye surgery History of intestinal surgery History of appendectomy History of tonsillectomy and adenoidectomy History of knee surgery History of hip replacement 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 Smoking Status: Never smoker second hand exposure: Yes alcohol intake: former year quit: 2003 details: Sober since 2003. substance use type: former substance user Date of last use: 04/10/2004 and marijuana caffeine: Yes Type: carbonated beverages Number of servings: 2 and coffee Number of servings: 2 what type of physical activity do you participate in: none ROS <ANJEL Medina - Last Filed: 10/24/24 21:57> ROS ED ROS Narrative Constitutional: Negative for fever, chills, malaise. CVS: Positive for chest pain. No palpitations or syncope. Respiratory: Positive for shortness of breath. GI: Negative for abdominal pain, nausea, vomiting, melena, hematochezia. EXAM <ANJEL Medina - Last Filed: 10/24/24 21:57> Physical Exam Narrative Exam Narrative: CONST: Patient sitting in no acute distress. EYES: Normal inspection. ENT: Normal inspection, moist mucous membranes. NECK: Normal inspection. RESP: Mild conversational dyspnea, lung sounds diminished with faint bibasilar crackles. CVS: Regular rate and rhythm, no murmur, no gallop. ABD: Soft and nontender, no guarding or rebound, nondistended. SKIN: Color normal, no rash, warm, dry, intact. EXTREMITIES: 3+ pitting edema to both mid shins. NEURO: Alert and answering questions appropriately. PSYCH: Normal affect. Const Vital Signs: 10/24/24 15:41 10/24/24 15:42 10/24/24 16:41 Temperature 98.6 F Temperature Source Oral Pulse Rate 71 70 Respiratory Rate 16 Respiratory Effort Normal Non-Labored Respiratory Depth Normal Respiratory Pattern Normal Blood Pressure 132/77 H 167/78 H Blood Pressure Mean 95 107 Pulse Ox 99 99 Oxygen Delivery Method Nasal Cannula Oxygen Flow Rate (L/min) 4 Fraction of Inspired Oxygen (FIO2) 10/24/24 17:41 10/24/24 18:00 10/24/24 19:00 Temperature Temperature Source Pulse Rate 70 72 70 Respiratory Rate 18 22 H 18 Respiratory Effort Respiratory Depth Respiratory Pattern Blood Pressure 150/86 H 160/106 H 143/60 H Blood Pressure Mean 107 124 87 Pulse Ox 99 100 100 Oxygen Delivery Method Nasal Cannula Oxygen Flow Rate (L/min) 4 Fraction of Inspired Oxygen (FIO2) 10/24/24 19:21 10/24/24 19:37 10/24/24 19:37 Temperature 98.4 F Temperature Source Pulse Rate 78 Respiratory Rate 20 H Respiratory Effort Respiratory Depth Respiratory Pattern Blood Pressure 148/84 H Blood Pressure Mean 105 Pulse Ox 100 99 Oxygen Delivery Method Bi-pap Oxygen Flow Rate (L/min) Fraction of Inspired Oxygen (FIO2) 30 30 <Dr. Arthur Osborn DO - Last Filed: 10/24/24 23:58> Physical Exam Const Vital Signs: 10/24/24 15:41 10/24/24 15:42 10/24/24 16:41 Temperature 98.6 F Temperature Source Oral Pulse Rate 71 70 Respiratory Rate 16 Respiratory Effort Normal Non-Labored Respiratory Depth Normal Respiratory Pattern Normal Blood Pressure 132/77 H 167/78 H Blood Pressure Mean 95 107 Pulse Ox 99 99 Oxygen Delivery Method Nasal Cannula Oxygen Flow Rate (L/min) 4 Fraction of Inspired Oxygen (FIO2) 10/24/24 17:41 10/24/24 18:00 10/24/24 19:00 Temperature Temperature Source Pulse Rate 70 72 70 Respiratory Rate 18 22 H 18 Respiratory Effort Respiratory Depth Respiratory Pattern Blood Pressure 150/86 H 160/106 H 143/60 H Blood Pressure Mean 107 124 87 Pulse Ox 99 100 100 Oxygen Delivery Method Nasal Cannula Oxygen Flow Rate (L/min) 4 Fraction of Inspired Oxygen (FIO2) 10/24/24 19:21 10/24/24 19:37 10/24/24 19:37 Temperature 98.4 F Temperature Source Pulse Rate 78 Respiratory Rate 20 H Respiratory Effort Respiratory Depth Respiratory Pattern Blood Pressure 148/84 H Blood Pressure Mean 105 Pulse Ox 100 99 Oxygen Delivery Method Bi-pap Oxygen Flow Rate (L/min) Fraction of Inspired Oxygen (FIO2) 30 30 MDM <ANJEL Medina - Last Filed: 10/24/24 21:57> [facility] MDM Narrative Medical decision making narrative: Differential includes but not limited to CHF exacerbation, COPD exacerbation, ACS, PE 68-year-old male with COPD/CHF on chronic oxygen who presents with chest pain and worsening dyspnea and worsening bilateral lower extremity edema. He is from the [facility]. He appears well and nontoxic. Vitals are stable. He is on 4 L and maintaining 94% or above. Lung sounds are diminished. Possible bibasilar crackles. He has mild tachypnea with conversation and significant lower extremity pitting edema. WBC is normal at 7.6. Hgb stable at 9.6. Normal electrolytes. BUN 34, creatinine 1.88 appear baseline. Glucose 176. Troponin is 119. Looks like it was running high in August 2024 at 123 when he was admitted for CHF exacerbation. Today his proBNP is 6474 and chest x-ray shows congestive heart failure. He was unable to tolerate lying down flat to have a CTA done. Although I cannot rule out PE, his clinical picture fits with congestive heart failure and I ordered IV Lasix 60 mg. I did not anticoagulate because he has a history of GI bleed. Although his saturations remain normal he seems to be in slightly more respiratory distress so I ordered BiPAP. I discussed the case with the hospitalist for admission to the PCU. Lab Data Attestation: I reviewed the patient's lab results. Labs: Laboratory Results - last 24 hr 10/24/24 10/24/24 17:15 19:25 WBC 7.6 RBC 3.67 L Hgb 9.6 L Hct 31.5 L MCV 85.8 MCH 26.2 L MCHC 30.5 L RDW Std Deviation 56.7 H RDW Coeff of Thao 18.0 H Plt Count 264 MPV 9.5 Immature Gran % (Auto) 0.700 Neut % (Auto) 84.1 H Lymph % (Auto) 2.9 L Clinch % (Auto) 9.7 Eos % (Auto) 2.1 Baso % (Auto) 0.5 Absolute Neuts (auto) 6.4 Absolute Lymphs (auto) 0.22 L Nucleated RBC % 0 Sodium 140 Potassium 4.1 Chloride 102 Carbon Dioxide 27.5 Anion Gap 10 BUN 34 H Creatinine 1.88 H Estim Creat Clear Calc 49.81 L Est GFR (MDRD) Non-Af 39 L BUN/Creatinine Ratio 18.1 Glucose 176 H Calcium 12.0 H Magnesium 2.0 Troponin T High Sens 119 H* Troponin T Hi Sens 2 Hr 122 H* NT pro BNP II 6474 H PTH Intact 155 H Radiography Diagnostic Testing: Clinical Impression(s) from Imaging Studies Chest X-Ray 10/24/24 16:25 IMPRESSION: Congestive heart failure. Reading Location: [place] [address] ED attending interpretation of 1 view chest x-ray shows borderline cardiomegaly, congestive heart failure, no large pleural effusions. EKG Initial EKG: Attestation: I personally reviewed and interpreted this EKG as follows: Comments: Ventricular paced rhythm at 71 bpm, occasional PVCs <Dr. Arthur Osborn, DO - Last Filed: 10/24/24 23:58> [facility] Narrative Medical decision making narrative: Differential includes but not limited to CHF exacerbation, COPD exacerbation, ACS, PE 68-year-old male with COPD/CHF on chronic oxygen who presents with chest pain and worsening dyspnea and worsening bilateral lower extremity edema. He is from the [facility]. He appears well and nontoxic. Vitals are stable. He is on 4 L and maintaining 94% or above. Lung sounds are diminished. Possible bibasilar crackles. He has mild tachypnea with conversation and significant lower extremity pitting edema. WBC is normal at 7.6. Hgb stable at 9.6. Normal electrolytes. BUN 34, creatinine 1.88 appear baseline. Glucose 176. Troponin is 119. Looks like it was running high in August 2024 at 123 when he was admitted for CHF exacerbation. Today his proBNP is 6474 and chest x-ray shows congestive heart failure. He was unable to tolerate lying down flat to have a CTA done. Although I cannot rule out PE, his clinical picture fits with congestive heart failure and I ordered IV Lasix 60 mg. I did not anticoagulate because he has a history of GI bleed. Although his saturations remain normal he seems to be in slightly more respiratory distress so I ordered BiPAP. I discussed the case with the hospitalist for admission to the PCU. Supervisory Physician Note Patient was seen and examined with the Advanced Practice Provider. Nursing notes and vital signs have been reviewed. Pertinent old records have been reviewed. I agree with the essential elements of the CHU's history, physical exam, assessment, and plan. The differential diagnosis and management options were discussed with the [facility]. I participated in determining and agree with the management, procedures, final impression and disposition as documented. See changes noted by me. Please see addendum or separate note for any additional details. 68-year-old male with past medical history of HTN, HLD, DM2, COPD, CHF, A-fib presents for evaluation of chest pain and shortness of breath. Associated symptoms bilateral lower extremity swelling. History of DVT/PE but no longer on blood thinners due to GI bleed. Gen: A&O x3 Head: Normocephalic, atraumatic Eyes: No sclera icterus, conjunctiva clear ENT: Moist mucous membranes Neck: Trachea midline CV: RRR, no murmurs, +3 bilateral pitting peripheral edema of the lower extremities Resp: Lungs diminished in the bilateral bases, positive crackles, on baseline 3 L nasal cannula GI: Large body habitus, abd soft, non-distended, non-tender, no r/r/g Musc: Moves all extremities, Neuro: Alert, oriented, grossly intact, sensation intact Psych: Cooperative, appropriate mood and affect EKG and chest x-ray were personally reviewed and interpreted by me, ED physician. Chest x-ray consistent with CHF exacerbation. CBC without leukocytosis. Patient has baseline anemia. BMP shows baseline CKD. Troponin 119 and 122. On chart review, previous troponin in August was 123. At that time elevated troponin was secondary to CHF exacerbation and CKD. Given his EKG, I suspect the same pathology for the elevated troponin. BNP elevated to 6474. Patient is in his CHF exacerbation. Lasix ordered. We did attempt to get a CTA chest however patient could not have this performed secondary to orthopnea. He could not tolerate it. Given patient's increase tachypnea and dyspnea speaking. Patient will be placed on BiPAP. Admitted to the hospitalist service. 30 minutes of critical care time utilized in managing the patient. This is due to high probability of and deterioration of the patient based on the patient's condition and excludes any separately billable procedures. Impression: 1. CHF exacerbation requiring BiPAP 2. Elevated troponin 3. CKD 4. Chronic anemia Lab Data Labs: Laboratory Results - last 24 hr 10/24/24 10/24/24 17:15 19:25 WBC 7.6 RBC 3.67 L Hgb 9.6 L Hct 31.5 L MCV 85.8 MCH 26.2 L MCHC 30.5 L RDW Std Deviation 56.7 H RDW Coeff of Thao 18.0 H Plt Count 264 MPV 9.5 Immature Gran % (Auto) 0.700 Neut % (Auto) 84.1 H Lymph % (Auto) 2.9 L Clinch % (Auto) 9.7 Eos % (Auto) 2.1 Baso % (Auto) 0.5 Absolute Neuts (auto) 6.4 Absolute Lymphs (auto) 0.22 L Nucleated RBC % 0 Sodium 140 Potassium 4.1 Chloride 102 Carbon Dioxide 27.5 Anion Gap 10 BUN 34 H Creatinine 1.88 H Estim Creat Clear Calc 49.81 L Est GFR (MDRD) Non-Af 39 L BUN/Creatinine Ratio 18.1 Glucose 176 H Calcium 12.0 H Magnesium 2.0 Troponin T High Sens 119 H* Troponin T Hi Sens 2 Hr 122 H* NT pro BNP II 6474 H PTH Intact 155 H Radiography Diagnostic Testing: Clinical Impression(s) from Imaging Studies Chest X-Ray 10/24/24 16:25 IMPRESSION: Congestive heart failure. Reading Location: [place] [address] Discharge Plan Dx/Rx/DC Orders Clinical Impression: Acute exacerbation of CHF (congestive heart failure), History of COPD Disposition Disposition: Acute Care Hospital [facility] Discharge Date/Time: 10/24/24 20:03
[2024-10-24 17:39] LABS: Hematocrit 31.5 % (40-54); Hemoglobin 9.6 g/dL (13.0-16.5); Immature Granulocytes Count 0.050 X10^3/uL (0.0-0.0); Mean Corp Hgb Conc 30.5 g/dL (32-36); Mean Corpuscular Volume 85.8 fL (80-94); Mean Platelet Vol. 9.5 fl (6.2-12.0); NRBC Flagged by Analyzer 0 % (0-5); POSITIVE DIFFERENTIAL YES; Platelet Count 264 K/mm3 (150-450); RBC Distribution Width CV 18.0 % (11.6-14.6); RBC Distribution Width SD 56.7 fl (35.1-43.9); Red Blood Count 3.67 M/mm3 (4.6-6.2); White Blood Count 7.6 K/mm3 (4.4-11.0)
[2024-10-24 18:09] LABS: Anion Gap 10 (5-15); BUN 34 mg/dL (4-19); BUN/Creat Ratio 18.1 RATIO (10-20); Calcium,Total 12.0 mg/dL (7.6-11.0); Carbon Dioxide 27.5 mmol/L (21.0-32.0); Chloride 102 mmol/L (98-108); Estimated Creatinine Clearance 49.81 ml/min (50-250); Glucose 176 mg/dL (70-99); Potassium 4.1 mmol/L (3.3-5.1)
[2024-10-24 18:14] LABS: Pro- Brain NATRIURETIC PEPTIDE 6474 pg/mL (<=900); Troponin T High Sensitivity 119 ng/L (<=22)
--- NOTE | 2024-10-24 19:20 | HP.PCM.HOS_ITS ---
[facility] - General General Date of Admission: 10/24/24 Date of Service: 10/24/24 Chief Complaint: SOB and Chest Tightness. [facility] Narrative ELIANE KAY, is a 68 M with a past medical history of essential hypertension; on furosemide, metoprolol BID and spironolactone, hydralazine TID, hyperlipidemia; currently not on treatment, DM-2; of unknown control, obesity (class II); with BMI of 38.4 this admission, FAVIAN, history of secondary pulmonary hypertension, chronic hypoxic respiratory failure; on ~2-4L NC continuously, history of DVT/PE; not on anticoagulation due to GI bleed, CAD; multiple stents already on clopidogrel and Ranolazine, history of paroxysmal atrial fibrillation, chronic diastolic CHF; with preserved LVEF, LVH, history of SSS; s/p PPM, history of seizures; currently not on treatment, CKD; stage IIIb, history of GI bleed; with subsequent chronic iron deficiency anemia, GERD; on pantoprazole plus sucralfate, history of MRSA, history of near syncope, history of vertigo, depression with anxiety, OA; with chronic bilateral knee and back pain and history of GI bleed attributed to PUD who presents to [facility] who presents to [facility] complaining of SOB and chest tightness. Mr. kay reports his symptoms began approximately 1 week prior to admission with the gradual-onset of progressively worsening MEANS that progressed to SOB at rest. He also admits to associated chest tightness in the center of his chest that with radiation into his Left shoulder and is made worse with activity with nothing seeming to make it better. He was then treated with nebulizers at the [facility] but they did not help so he was sent in for further evaluation and treatment. He states he has (~3+) worsening of his chronic LE edema and that he has been compliant with his furosemide 60 mg PO daily. He admits to occasional non-productive cough and he states his furosemide was recently cut back to once daily and it was after this his clinical decline seemed to begin. Recent echocardiogram done on August 10, 2024 revealed LVEF ~55% with moderate (2+) mitral valve insufficiency and mild (~1+) aortic valve insufficiency with no significant change from previous echocardiogram. There was no report of related fever, chills, nausea, vomiting, diarrhea, constipation, abdominal pain, heart racing, palpitations, syncope, presyncope, dysuria, hematuria, headache or rash. In the ER he was noted to have a highly elevated NT pro-BNP II of 6,474 pg/mL present on admission with a corresponding CXR that revealed congestive heart failure consistent with AE of Chronic Diastolic CHF; with preserved LEVF with an elevated troponin of 119 pg/mL present on admission suspected to be due to Acute Cardiac Strain complicated by clinical evidence of [id number] Hypoxic Respiratory Failure; requiring treatment with BiPAP in ER and he was then admitted to the PCU for ongoing care for a stay that is expected to extend beyond 2 midnights. [facility] Medical History (Updated 10/24/24 @ 23:[address] Ryan Noel, DO) Hypercalcemia Acute exacerbation of CHF (congestive heart failure) Low iron Insulin dependent diabetes mellitus On home oxygen therapy Cellulitis and abscess of left leg CKD (chronic kidney disease), stage III Major depressive disorder Peripheral vascular disease Pacemaker Obesity Acute hypoxemic respiratory failure Lives in snf Loss of hearing Tinnitus of both ears Wears glasses Anxiety Pressure ulcer Thyroid disease Uses wheelchair Ambulates with cane Arthritis History of renal disease Hepatitis Pulmonary embolism Back pain Injury of head and neck Hypotension Dietary restriction History of ulceration History of GI bleed History of diverticulitis Non-smoker COPD (chronic obstructive pulmonary disease) Shortness of breath on exertion History of edema History of echocardiogram History of stress test Cardiology follow-up encounter Chest pain Presence of permanent cardiac pacemaker Sick sinus syndrome Alcohol abuse Depression GERD (gastroesophageal reflux disease) BiPAP (biphasic positive airway pressure) dependence Irregular heart beat Congestive heart failure (CHF) Hypertension DVT (deep venous thrombosis) Fall Intermittent chest pain Gastric ulcer GI bleed Heart failure with preserved ejection fraction Atrial fibrillation Olecranon bursitis Debility Dizziness Anxiety and depression Vertigo Shortness of breath Diabetes Asthma Anemia Dark stools Benign essential HTN MEANS (dyspnea on exertion) Osteopenia Primary hyperparathyroidism Chest pain Hyperparathyroidism Seizures Adult failure to thrive Type 2 diabetes mellitus Chronic pain of both knees Vitamin D deficiency Renal insufficiency Fatigue Arthritis Colon cancer screening Health care maintenance Acute midline thoracic back pain Hyperlipidemia Hypercalcemia Secondary pulmonary hypertension Depression Congestive heart failure Chronic wound of head Sciatica Insomnia Pure hypercholesterolemia Atherosclerosis of coronary artery of [place] heart without angina pectoris Chronic hypoxemic respiratory failure FAVIAN (obstructive sleep apnea) Dyspnea on exertion History of pulmonary embolism Acquired left ventricular hypertrophy Abnormal chest xray Near syncope Hypoxia Hypertriglyceridemia Morbid obesity with BMI of 40.0-44.9, adult Osteoarthritis History of DVT (deep vein thrombosis) Home Medications ?Medication ?Instructions ?Recorded ?Last Taken ?Type ranolazine 500 mg tablet,extended 500 mg PO BID chest pain #180 tabs 12/20/22 08/09/24 Rx release,12 hr ferrous sulfate 325 mg (65 mg 325 mg PO DAILY suppleme nt #90 tabs 05/19/23 08/09/24 Rx iron) tablet paroxetine HCl 40 mg tablet 40 mg PO DAILY mood #30 ta bs 05/19/23 08/09/24 Rx pantoprazole 40 mg tablet,delayed 40 mg PO DAILY GI #9 0 tabs 06/01/23 08/09/24 Rx release metoprolol succinate 50 mg 50 mg PO Q12H blood pressur e #60 06/12/23 08/09/24 Rx tablet,extended release 24 hr tabs sucralfate 1 gram tablet 1 g PO 1HR_ACHS GERD #0 tabs 07/31/23 08/09/24 Rx bisacodyl 10 mg rectal suppository 10 mg PA DAILY PRN constipation 08/08/23 Unknown History insulin lispro 100 unit/mL 1 sliding scale dose subcut 08/08/23 08/09/24 History subcutaneous solution (Humalog USEASDIRECTD SS U-100 Insulin) magnesium hydroxide 400 mg/5 mL 30 ml PO DAILY PRN con stipation 08/08/23 Unknown History oral suspension (Milk of Magnesia) mineral oil (Fleet Mineral Oil 118 ml PA DAILY PRN con stipation 08/08/23 Unknown History enema) hydralazine 100 mg tablet 100 mg PO TID Hypertension # 270 02/21/24 08/09/24 Rx tabs cholecalciferol (vitamin D3) 50 100 mcg PO QDAY supple ment 03/15/24 08/09/24 History mcg (2,000 unit) capsule clopidogrel 75 mg tablet 75 mg PO QDAY Anticoagulant 03/15/24 08/23/24 History nebulizer kits #1 ea 03/15/24 Unknown Rx nebulizer machine #1 ea 03/15/24 Unknown Rx semaglutide 1 mg/dose (4 mg/3 mL) 1 mg subcut FR DM 08/23/24 History subcutaneous pen injector (Ozempic) therapeutic multivitamin 1 tab PO QAM health 03/15/24 Unknown History budesonide 1 mg/2 mL suspension 1 mg (2 mL) inhalation BID COPD 05/03/24 08/09/24 Rx for nebulization #120 mL insulin glargine 100 unit/mL (3 33 unit subcut QAM Obi g acting 07/22/24 08/09/24 History mL) subcutaneous pen (Lantus Insulin Solostar U-100 Insulin) insulin lispro 100 unit/mL 5 unit subcut 0800 Glucose Control 07/22/24 08/09/24 History subcutaneous pen insulin lispro 100 unit/mL 6 unit subcut 1200 Glucose Control 07/22/24 08/08/24 History subcutaneous pen insulin lispro 100 unit/mL 8 unit subcut 1800 Glucose Control 07/22/24 08/08/24 History subcutaneous pen acetaminophen 500 mg tablet 1,000 mg PO Q8H PRN pain 0 08/01/24 Unknown History albuterol sulfate 2.5 mg/3 mL 2.5 mg inhalation BID PA N 08/01/24 Unknown History (0.083 %) solution for nebulization shortness of breat h or wheezing ammonium lactate 5 % lotion 1 applic topical QD-BID PA N dry 08/01/24 08/09/24 History skin cinacalcet 30 mg tablet 30 mg PO BID supplement 07/1008/09/24 History oxycodone 5 mg tablet 5 mg PO Q6H PRN Pain Score 6 -10 08/01/24 Unknown History fenofibrate nanocrystallized 145 145 mg PO DAILY 08/15 Unknown History mg tablet furosemide 40 mg tablet 60 mg PO QDAY water pill 12/02 Unknown History potassium chloride 20 mEq 20 meq PO QDAY Supplement #0 tabs 08/15/24 Unknown Rx tablet,extended release(part/cryst) spironolactone 25 mg tablet 25 mg PO DAILY #1 TAB 12/02 Unknown Rx Lactobacillus rhamnosus GG 10 1 cap PO BID 09/03/24 Un known History billion cell capsule (Culturelle) oxycodone 5 mg tablet,oral ONLY 5 mg PO 0600 pain 10/08 11/01 Unknown History (not feeding tubes) (RoxyBond) tamsulosin 0.4 mg capsule 0.4 mg PO QHS 10/24/24 Unkno wn History Allergy/AdvReac Type Severity Reaction Status Date / Time No Known Allergies Allergy Verified 10/24/24 15:45 Family History Mother Colon cancer Sister CAD (coronary artery disease) CABG x 5 Diabetes Myocardial infarction, Onset Age: 67 Father Crohns disease Surgical History History of cardiac catheterization History of appendectomy History of eye surgery History of intestinal surgery History of appendectomy History of tonsillectomy and adenoidectomy History of knee surgery History of hip replacement 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 Smoking Status: Never smoker second hand exposure: Yes alcohol intake: former year quit: 2003 details: Sober since 2003. substance use type: former substance user Date of last use: 04/10/2004 and marijuana caffeine: Yes Type: carbonated beverages Number of servings: 2 and coffee Number of servings: 2 what type of physical activity do you participate in: none ROS ROS Narrative Review of Systems: Constitutional: Patient denies fever or chills. Eyes: Patient denies changes in vision or discharge from eyes. ENT: Patient denies runny nose, sore throat or ear pain. Resp: Patient admits to MEANS that progressed to SOB at rest plus nonproductive cough as per HPI. CV: Patient admits to chest tightness radiating to his Left shoulder that is made worse with activity as per HPI. GI: Patient denies abdominal pain, nausea, vomiting, diarrhea or constipation. : Patient denies dysuria or hematuria. MSK: Patient admits to an acute worsening of his chronic LE edema and generalized weakness but he denies arthralgias or myalgias. Skin: Patient denies rash, abscess, wounds or jaundice. Psych: Patient denies symptoms of uncontrolled depression or anxiety. Neuro: Patient denies headache, paresthesias or focal neurologic deficits. Allergy: Patient denies lip swelling, tongue swelling or urticaria. Hematology: Patient has history of recurrent GI bleed with known PUD. Endocrinology: Patient denies polyuria, polydipsia, polyphagia or heat/cold intolerance. 14 point ROS otherwise negative except for positives noted above in HPI. Vital Signs Vital Signs Vital Signs: 10/24/24 15:41 10/24/24 15:42 10/24/24 16:41 Temperature 98.6 F Temperature Source Oral Pulse Rate 71 70 Respiratory Rate 16 Respiratory Effort Normal Non-Labored Respiratory Depth Normal Respiratory Pattern Normal Blood Pressure 132/77 H 167/78 H Blood Pressure Mean 95 107 Pulse Ox 99 99 Oxygen Delivery Method Nasal Cannula Oxygen Flow Rate (L/min) 4 10/24/24 17:41 10/24/24 18:00 10/24/24 19:00 Temperature Temperature Source Pulse Rate 70 72 70 Respiratory Rate 18 22 H 18 Respiratory Effort Respiratory Depth Respiratory Pattern Blood Pressure 150/86 H 160/106 H 143/60 H Blood Pressure Mean 107 124 87 Pulse Ox 99 100 100 Oxygen Delivery Method Nasal Cannula Oxygen Flow Rate (L/min) 4 Weight Weight: 267 lb 10.259 oz Body Mass Index (BMI) 38.4 Physical Exam Const alert, oriented x3 and no apparent distress Constitutional Narrative: Patient is very obese and mildly dyspneic at rest. General Appearance: cooperative HEENT normocephalic, head/scalp atraumatic, hearing grossly normal bilaterally and moist oral mucous membranes Eyes PERRL, EOMs intact bilaterally and conjunctivae normal Neck no lymphadenopathy and supple Resp Resp Narrative: Diminished breath sounds throughout with bibasilar rales. Auscultation: rales Cardio regular rate and regular rhythm GI normal to inspection, nondistended, normoactive bowel sounds, soft to palpation, non-tender and non-distended GI Narrative: Obese. Extremity Extremity Narrative: ~3+ bilateral LE pitting edema. Skin Skin Narrative: Patient has no evidence of rash, abscess, wounds or jaundice. Neuro oriented x3, CN's II-XII intact bilaterally, moves all extremities and no focal motor deficits Sensorium / Orientation: awake, alert, oriented to person, oriented to place and oriented to time Speech: speech normal Psych affect normal Results Medical Records Data Attestation: I reviewed the patient's medical records Lab / Micro Data Attestation: I reviewed the patient's lab results. 10/24/24 17:15 10/24/24 17:15 Labs: Laboratory Results - last 24 hr 10/24/24 17:15: WBC 7.6, RBC 3.67 L, Hgb 9.6 L, Hct 31.5 L, MCV 85.8, MCH 26.2 L , MCHC 30.5 L, RDW Std Deviation 56.7 H, RDW Coeff of Thao 18.0 H, Plt Count 264, MPV 9.5, Immature Gran % (Auto) 0.700, Neut % (Auto) 84.1 H, Lymph % (Auto) 2.9 L, Centre % (Auto) 9.7, Eos % (Auto) 2.1, Baso % (Auto) 0.5, Absolute Neuts (auto) 6.4, Absolute Lymphs (auto) 0.22 L, Nucleated RBC % 0, Sodium 140, Potassium 4.1, Chloride 102, Carbon Dioxide 27.5, Anion Gap 10, BUN 34 H, Creatinine 1.88 H, Estim Creat Clear Calc 49.81 L, Est GFR (MDRD) Non-Af 39 L, BUN/Creatinine Ratio 18.1, Glucose 176 H, Calcium 12.0 H, Troponin T High Sens 119 H*, NT pro BNP II 6474 H Imaging Radiology Impression Chest X-Ray 10/24/24 16:25 IMPRESSION: Congestive heart failure. Reading Location: [place] [id number] Assessment & Plan Assessment/Plan (1) Acute exacerbation of CHF (congestive heart failure): QUALIFIERS: Heart failure type: diastolic Qualified Code(s): I 50.33 - Acute on chronic diastolic (congestive) heart failure (2) Elevated troponin: (3) Exertional chest pain: (4) Acute and chronic respiratory failure with hypoxia: (5) Acute cystitis without hematuria: (6) Hypercalcemia: (7) Obesity (BMI 30-39.9): PLAN: Plan 1. Highly elevated NT pro-BNP II of 6,474 pg/mL present on admission with a corresponding CXR that revealed congestive heart failure consistent with AE of chronic diastolic CHF; with preserved LVEF - Admit to PCU. Continue furosemide begun in ER at 60 mg IV BID plus supplemental KCl and magnesium. Recent echocardiogram noted above. Exacerbation likely attributable to recent decrease in furosemide administration. 2. Elevated troponin of 119 pg/mL present on admission suspected to be due to Acute Cardiac Strain with Exertional Chest Pain due to #1 in the setting of previously known CAD; multiple stents already on clopidogrel and ranolazine - Serialize troponin. Resume clopidogrel and ranolazine as previous. Patient will likely need conservative medical management due to his history of GI bleeding. 3. Uclop-vc-Cvwoefk Hypoxic Respiratory Failure; requiring treatment with BiPAP in ER attributable to #1 & #2 - Wean BiPAP as tolerated. 4. UA positive for Acute Cystitis; without hematuria adding to the medical complexity of #1 - #3 - Start ceftriaxone IV and await culture an sensitivity data. 5. Hypercalcemia of 12 mg/dL present on admission - Check PTH and recheck level in AM to follow trend. 6. Obesity (class II); with BMI of 38.4 this admission plus FAVIAN adding to the burden of disease outlined from #1 - #5 - Weight loss will be recommended. Check TSH. This complicates his case and may hamper recovery. 7. History of DVT/PE; not on anticoagulation due to GI bleed - Noted. 8. Essential hypertension - Maintain home regimen. 9. Hyperlipidemia; currently not on treatment - Check Lipid Profile. 10. DM-2; of unknown control - ADA/ cardiac diet. FSBS q. AC/HS plus SSI. Check HgbA1c to objectively assess quality of diabetic control. 11. History of secondary pulmonary hypertension - Noted. 12. History of paroxysmal atrial fibrillation - Noted. 13. LVH - Stable. 14. History of SSS; s/p PPM - Stable. 15. History of seizures; currently not on treatment - Noted. 16. CKD; stage IIIb - Stable with serum creatinine of 1.88 mg/dL, BUN of 34 mg/dL and eGFR of 39 mL/min this admission. 17. History of GI bleed; with subsequent chronic iron deficiency anemia - Stable with hemoglobin of 9.6 g/dL with MCV of 85.8 fL this admission. 18. GERD; on pantoprazole plus sucralfate - Maintain present treatment. 19. History of MRSA - Noted. 20. History of near syncope - Noted with no evidence of recurrence. 21. History of vertigo - Stable with no evidence of recurrence at this time. 22. Depression with anxiety; currently not on treatment - Stable. 23. OA; with chronic bilateral knee and back pain - Give acetaminophen prn for [id number] (level 1-5/10) pain or fever. Give oxycodone prn for severe (level 6-10/10) pain. 24. DVT prophylaxis - SCD's only in light of recurrent GI bleeds outlined in #17. Total time: Approximately (but not less than) 75 minutes. Charges/Coding Visit Charges Inpatient E&M: 71937 Init Hosp L3
[2024-10-24 20:02] LABS: Troponin T High Sens 2 HR 122 ng/L (<=22)
--- OUTSIDE RECORDS SUMMARY | 2024-10-24 20:50 | XMS RPT_ITS | CCD ---
Author Organization [facility] CliniSyid Care Team Providers Care Order Picker Name Role Phone EDUARDO ALMEIDA Unavailable Unavailable Kirit, Nicho-chi Unavailable Unavailable EDUARDO ALMEIDA Unavailable Unavailable Kirit, Nicho-chi Unavailable Unavailable EDUARDO ALMEIDA Unavailable Unavailable Jimmy Breen Unavailable Unavailable Kirit, Nicho-chi Unavailable Unavailable EDUARDO ALMEIDA Unavailable Unavailable Kirit, Nicho-chi Unavailable Unavailable Jaret Mcdonough Unavailable Unavailable EDUARDO ALMEIDA Unavailable Unavailable Kirit, Nicho-chi Unavailable Unavailable EDUARDO ALMEIDA Unavailable Unavailable EDUARDO ALMEIDA Unavailable Unavailable Kirit, Nicho-chi Unavailable Unavailable EDUARDO ALMEIDA Unavailable Unavailable Severino, Liam Susan Unavailable Unavailable Kirit, Nicho-chi Unavailable Unavailable EDUARDO ALMEIDA Unavailable Unavailable EDUARDO ALMEIDA Unavailable Unavailable EDUARDO ALMEIDA Unavailable Unavailable Kirit, Nicho-chi Unavailable Unavailable EDUARDO ALMEIDA Unavailable Unavailable Kirit, Nicho-chi Unavailable Unavailable EDUARDO ALMEIDA Unavailable Unavailable Kirit, Nicho-chi Unavailable Unavailable Kirit, Nicho-chi Unavailable Unavailable EDUARDO ALMEIDA Unavailable Unavailable Kirit, Nicho-chi Unavailable Unavailable EDUARDO ALMEIDA Unavailable Unavailable EDUARDO ALMEIDA Unavailable Unavailable Kirit, Nicho-chi Unavailable Unavailable Kirit, Nicho-chi Unavailable Unavailable EDUARDO ALMEIDA Unavailable Unavailable Kirit, Nicho-chi Unavailable Unavailable Kirit, Nicho-chi Unavailable Unavailable EDUARDO ALMEIDA Unavailable Unavailable EDUARDO ALMEIDA Unavailable Unavailable Kirit, Nicho-chi Unavailable Unavailable EDUARDO ALMEIDA Unavailable Unavailable EDUARDO ALMEIDA Unavailable Unavailable Kirit, Nicho-chi Unavailable Unavailable Dr. Mery Raymond Primary Care Provider [phone] Dr. Mery Raymond Referring Provider [phone] Dr. Damion Hawkins Attending Provider ANJEL Vines Attending Provider Dr. Vishnu Urias Attending Provider Dr. Robb Hua Attending Provider Dr. Brady Zaidi Emergency Provider Dr. Purvi Jensen Admit Provider Dr. Chey Kearney Attending Provider Christel, Dr. Chey Shaw Other Provider Konstantin PERRY, MAVERICK Griffiths Attending Provider [phone] Dr. Mery Raymond Attending Provider [phone] Dr. Mery Raymond Primary Care Provider [phone] Dr. Mery Raymond Referring Provider [phone] Lamine Rollins Emergency Provider Dr. Lyle Coleman Admit Provider Dr. Lyle Coleman Attending Provider Dr. Lyle Coleman Other Provider Dr. Kingsley Hollis Attending Provider Dr. Kingsley Hollis Other Provider MAVERICK Vences Attending Provider Dr. Mery Raymond Primary Care Provider [phone] Dr. Mery Raymond Referring Provider [phone] Dr. Hank Negrete Primary Care Provider ANJEL Vines Attending Provider MD Mery Raymond Primary Care Provider Unava Dr. Mery Berger Primary Care Provider [phone] Dr. Mery Raymond Referring Provider [phone] MAVERICK Vences Attending Provider Dr. Linus Yanez Emergency Provider Dr. Purvi Jensen Admit Provider Dr. Purvi Jensen Other Provider Dr. Narendra Schwartz Other Provider Dr. Hank Min Attending Provider Dr. Narendra Schwartz Attending Provider Dr. Hank Min Other Provider Dr. Narendra Schwartz Referring Provider Dr. Ty Rocha Referring Provider MD Mery Raymond Referring Provider Unavaila Dr. Adrian Vivas Attending Provider Dr. Mery Raymond Primary Care Provider [phone] Dr. Mery Raymond Referring Provider [phone] Dr. Mery Raymond Attending Provider [phone] ANJEL Arceo Attending Provider UnavailDr. Mery Quintanilla Primary Care Provider [phone] MD Mery Raymond Primary Care Provider Unava MD Mery Berger Referring Provider UnavailANJEL Armando Attending Provider UnavailDr. Mery Quintanilla Referring Provider [phone] MAVERICK Vences Attending Provider Antoine HOBBS, PA Stephanie Veloz Attending Provider Dr. Mery Raymond Attending Provider [phone] MD Mery Raymond Primary Care Provider Unava MD Mery Berger Referring Provider UnavailDr. Mery Hernandez Attending Provider [phone] Dr. Vishnu Urias Attending Provider Juarez FARM OPERATOR, FARM OPERATOR-C Ariana Attending Provider [phone] Ann FARM OPERATOR, FARM OPERATOR-C Ariana Referring Provider [phone] ANJEL Vines Attending Provider MD Mery Ulloa Primary Care Provider U navailable Ann FARM OPERATOR, FARM OPERATOR-C Ariana Attending Provider Ann FARM OPERATOR, FARM OPERATOR-C Ariana Referring Provider MD Mery Ulloa Referring Provider Unav Dr. Mery Costa Attending Provider [phone] Dr. Vishnu Urias Attending Provider ANJEL Vines Attending Provider MD Mery Ulloa Referring Provider Unav ailDr. Mery Maravilla Primary Care Provider [phone] Dr. Mery Raymond Attending Provider [phone] Dr. Vishnu Urias Attending Provider Dr. Mery Raymond Referring Provider [phone] Dr. Adrian Villalta Attending Provider MD Mery Ulloa Referring Provider Unav ailDr. Mery Maravilla Primary Care Provider [phone] Dr. Mery Raymond Attending Provider [phone] Dr. Vishnu Urias Attending Provider Dr. Mery Raymond Referring Provider [phone] Dr. Adrian Villalta Attending Provider Dr. Marco Lara Emergency Provider Jared, Dr. Alvarenga Admit Provider Dr. Lyle Coleman Attending Provider [phone] Dr. Lyle Coleman Referring Provider [phone] Dr. Lyle Coleman Other Provider Dr. Kingsley Hollis Attending Provider Dr. Kingsley Hollis Other Provider Dr. Jaja Boudreaux Emergency Provider Dr. Purvi Jensen Admit Provider Dr. Purvi Jensen Other Provider Dr. Maeve Coreas Other Provider Unavailable Josefina, Dr. Crawford Attending Provider Dr. Maeve Coreas Attending Provider Unavailable Josefina, Dr. Crawford Other Provider Dr. Kassidy Velez Other Provider Dr. Kassidy Velez Attending Provider Isai, Dr. Bear Attending Provider Dr. Mery Raymond Primary Care Provider [phone] Dr. Linus Yanez Emergency Provider 1([facility])[phone] Dr. Lyle Coleman Admit Provider Dr. Lyle Coleman Attending Provider Dr. Lyle Coleman Other Provider Dr. Tunde Miller Attending Provider Dr. Tunde Miller Other Provider Dr. Cody Sears Other Provider Dr. Louie Gonzales Attending Provider Dr. Cornelia Burns Attending Provider Dr. Cornelia Burns Other Provider Dr. Chema Alex Attending Provider Dr. Chema Alex Referring Provider Dr. Mery Raymond Referring Provider [phone] Dr. Vishnu Urias Attending Provider Dr. Cornelia Burns Referring Provider Dr. Maeve Noel Admit Provider Unavailabl e Dr. Maeve Noel Other Provider Unavailabl e Friend, Dr. Oluie Other Provider Dr. Tunde Miller Referring Provider Veena HOBBS, PA Brown Attending Provider Dr. Jaja Boudreaux Emergency Provider Dr. Kassidy Velez Attending Provider Dr. Kassidy Velez Other Provider Dr. Robb Hua Attending Provider Dr. Kassidy Velez Referring Provider Antoine HOBBS, PA Stephanie Veloz Attending Provider Dr. Damion Hawkins Attending Provider Dr. Brady Zaidi Emergency Provider Dr. Cornelia Burns Admit Provider Ada Kearns Attending Provider Unavailable Dr. Mery Raymond Primary Care Provider Dr. Linus Yanez Emergency Provider Dr. Lyle Coleman Admit Provider Dr. Lyle Coleman Attending Provider Dr. Lyle Coleman Other Provider Dr. Tunde Miller Attending Provider Dr. Tunde Miller Other Provider Dr. Cody Sears Other Provider Dr. Louie Gonzales Attending Provider Dr. Cornelia Burns Referring Provider Dr. Chema Alex Attending Provider Dr. Chema Alex Referring Provider Dr. Cornelia Burns Attending Provider Dr. Cornelia Burns Other Provider Dr. Mery Raymond Referring Provider [phone] Dr. Vishnu Urias Attending Provider Dr. Maeve Noel Admit Provider Unavailabl e de Wayne, Dr. Davis Other Provider Unavailabl e Friend, Dr. Palma Other Provider [phone] Tunde Miller Referring Provider Veena HOBBS, PA Brown Attending Provider Dr. Jaja Boudreaux Emergency Provider Dr. Kassidy Velez Attending Provider Dr. Kassidy Velez Other Provider Dr. Robb Hua Attending Provider Dr. Kassidy Velez Referring Provider Antoine HOBBS, PA Stephanie Veloz Attending Provider Dr. Damion Hawkins Attending Provider Dr. Brady Zaidi Emergency Provider Dr. Cornelia Burns Admit Provider Ada Kearns Attending Provider Unavailable Melita, Dr. Zamudio Admit Provider Dr. Robb Hua Other Provider Dr. Maeve Noel Attending Provider Unavail able Bunny, Dr. Wynn Other Provider Dr. Mery Raymond Primary Care Provider Dr. Linus Yanez Emergency Provider Dr. Maeve Noel Admit Provider Unavailabl e de Wayne, Dr. Davis Other Provider Unavailabl e Friend, Dr. Palma Other Provider [phone] Tunde Miller Attending Provider Dr. Tunde Miller Other Provider Dr. Cornelia Burns Other Provider Dr. Louie Gonzales Attending Provider [phone] Dr. Tunde iMller Referring Provider Dr. Mery Raymond Referring Provider Dr. Cornelia Burns Attending Provider 1([facility])[phone] Robb Hua Referring Provider 1([facility])[phone]. Mery Raymond Primary Care Provider Janet, Dr. Palma Attending Provider 1([facility])[phone] Dr. Maeve Noel Admit Provider Unavailabl e Noel, Dr. Davis Other Provider Unavailabl e Dr. Cornelia Burns Other Provider Janet, Dr. Palma Other Provider 1([facility])[phone] Harinder Woods Emergency Provider 1([facility])[phone] Dr. Narendra Schwartz Admit Provider Dr. Narendra Schwartz Attending Provider Dr. Narendra Schwartz Referring Provider Dr. Narendra Schwartz Other Provider 1([facility])[phone] Dr. Tunde Miller Attending Provider 1([facility])[phone] Dr. Tunde Miller Other Provider 1([facility])[phone] Vishnu Urias Attending Provider 1([facility])[phone] Caden PIZANO, Dr. Mckinney Primary Care Provider 1([facility] )[phone] Dr. Hank Negrete MD Referring Provider 1([facility])[phone] Sanjuana PERRY-CAf[place] Attending Provider Dr. Robb Hua MD Attending Provider 1([facility])[phone] Robb Hua MD Referring Provider 1([facility])[phone] Africa Escamilla Referring Provider Sanjuana PERRY-CAf[place] Other Provider 1([facility])[phone] Dr. Antonio Garcia DO Attending Provider 1([facility])[phone] Dr. Vishnu Urias MD Attending Provider 1([facility])[phone] Ann PERRY-CAriana Attending Provider Judie Fox Attending Provider Judie Fox Referring Provider Caden PIZANO, Dr. Mckinney Primary Care Provider Caden PIZANO, Dr. Mckinney Referring Provider Melita PIZANO, Dr. Zamudio Attending Provider Melita PIZANO, Dr. Zamudio Referring Provider Ambar PIZANO, Dr. Campbell Attending Provider Ann FARM OPERATOR-C, Ariana Attending Provider Dyan PIZANO, Dr. Abreu Emergency Provider Christel PIZANO, Dr. Chey Shaw Admit Provider Christel PIZANO, Dr. Chey Shaw Attending Provider Christel PIZANO, Dr. Chey Shaw Referring Provider Camila PIZANO, Dr. Purvi Milan Referring Provider Josefina PIZANO, Dr. Crawford Attending Provider Chirstel PIZANO, Dr. Chey Shaw Other Provider [phone] Stephanie Vines Attending Provider Janet CALDERON, Dr. Palma Attending Provider Dr. Louie Gonzales DO Other Provider Unavailable Primary Care Provider UnavailDELMY Scales Attending Unavailable Lucía PIZANO, Dr. Stephan Morton Attending Provider Josefina PIZANO, Dr. Crawford Attending Provider Lamine Rollins Attending Unavailable Caden, Hank Primary Care Unavailable Marco Lara Attending Unavailable Caden, Hank Primary Care Unavailable Ty Rocha Attending Unavailable Hank Negrete Primary Care Unavailable Ariana Juarez NP Referring Unavailable Ann FARM OPERATOR, Ariana Attending Unavailable Hank Negrete Primary Care Unavailable Africa Wei Attending Unavailable Africa Wei Referring Unavailable Caden, Hank Primary Care Unavailable Hank Negrete Attending Unavailable Caden, Hank Primary Care Unavailable Negrete, Hank Attending Unavailable Negrete, Hank Referring Unavailable Koram, Chey Valeria Attending Unavailable Koram, Chey Valeria Referring Unavailable Koram, Chey Valeria Admitting Unavailable Negrete, Hakn Primary Care Unavailable Stephanie Vines Attending Unavail able Negrete, Hank Referring Unavailable Negrete, Hank Primary Care Unavailable Vishnu Urias Attending Unavailable Negrete, Hank Referring Unavailable Negrete, Hank Primary Care Unavailable Judie Crump Attending Unavailable Negrete, Hank Referring Unavailable Negrete, Hank Primary Care Unavailable Juarez FARM OPERATOR, Ariana Attending Unavailable Negrete, Hank Referring Unavailable Negrete, Hank Primary Care Unavailable Africa Wei Consulting Unavailable Africa Wei Referring Unavailable Antonio Garcia Attending Unavailable Negrete, Hank Primary Care Unavailable Koram, Chey Valeria Referring Unavailable Koram, Chey Valeria Admitting Unavailable Negrete, Hank Primary Care Unavailable Koram, Chey Valeria Consulting Unavailable Koram, Chey Valeria Attending Unavailable Koram, Chey Valeria Attending Unavailable Koram, Chey Valeria Referring Unavailable Koram, Chey Valeria Admitting Unavailable Negrete, Hank Primary Care Unavailable Koram, Chey Valeria Consulting Unavailable Judie Crump Attending Unavailable Judie Crump Referring Unavailable Negrete, Hank Primary Care Unavailable Negrete, Hank Attending Unavailable Negrete, Hank Primary Care Unavailable Melita, Glover Attending Unavailable Negrete, Hank Primary Care Unavailable Purvi Jensen L Referring Unavailable NoltYazmin Attending Unavailable Negrete, Hank Primary Care Unavailable Antonio Garcia Attending Unavailable Juarez FARM OPERATOR, Ariana Referring Unavailable Juarez FARM OPERATOR, Ariana Consulting Unavailable Negrete, Hank Primary Care Unavailable Janet, Louie Attending Unavailable Negrete, Hank Referring Unavailable Negrete, Hank Primary Care Unavailable Vishnu Urias Consulting Unavailable Juarez FARM OPERATOR, Ariana Referring Unavailable Juarez FARM OPERATOR, Ariana Attending Unavailable Negrete, Hank Primary Care Unavailable Negrete, Hank Referring Unavailable Negrete, Hank Primary Care Unavailable Stephanie Vines Attending Unavail able Antonio aGrcia Attending Unavailable Melita, Robb Referring Unavailable Melita, Glover Attending Unavailable Negrete, Hank Primary Care Unavailable Melita, Glover Referring Unavailable Melita, Glover Attending Unavailable Negrete, Hank Primary Care Unavailable Judie Crump Attending Unavailable Negrete, Hank Referring Unavailable Negrete, Hank Primary Care Unavailable Stephanie Vines Attending Unavail able Negrete, Hank Referring Unavailable Negrete, Hank Primary Care Unavailable Melita, Robb Attending Unavailable Melita, Robb Referring Unavailable Negrete, Hank Primary Care Unavailable Africa Wei Attending Unavailable Negrete, Hank Referring Unavailable Negrete, Hank Primary Care Unavailable Ann PERRY, Ariana Attending Unavailable Negrete, Hank Referring Unavailable Negrete, Hank Primary Care Unavailable Negrete, Hank Referring Unavailable Negrete, Hank Primary Care Unavailable Adrian Villalta Attending Unavailable Negrete, Hank Primary Care Unavailable Melita, Robb Attending Unavailable Melita, Glover Referring Unavailable Humbertoghe, Efewongbe Referring Unavailable Vishnu Urias Attending Unavailable Negrete, Hank Primary Care Unavailable Melita, Glover Referring Unavailable Melita, Robb Attending Unavailable Negrete, Hank Primary Care Unavailable Vishnu Urias Attending Unavailable Negrete, Hank Primary Care Unavailable Carlinee, Scottiebe Referring Unavailable Ann FARM OPERATOR, Ariana Attending Unavailable Negrete, Hank Primary Care Unavailable FriendLouie Consulting Unavailable Louie Gonzales Attending Unavailable Negrete, Hank Referring Unavailable Negrete, Hank Primary Care Unavailable Judie Crump Attending Unavailable Judie Crump Referring Unavailable Negrete, Hank Primary Care Unavailable Medications Current Medications Medication Drug Class(es) Dates Sig (Normalized) Sig (Original) acetaminophen 500 mg oral tablet (20 sources) Start: 08-01-2024 Start: 10-20-2022 End: 03-13-2023 Start: 10-20-2022 End: 03-13-2023 Start: 10-18-2022 End: 10-27-2022 Start: 10-18-2022 End: 10-27-2022 Start: 08-23-2021 End: 04-14-2022 take 1 capsule by [facility] every eight hours as needed Acetaminophen 500 mg cap Take 500 mg by mouth every 8 hours as needed. Take 2 tablets as needed Active acetaminophen 325 mg / HYDROcodone bitartrate 5 mg oral tablet (5 sources) Opioid Agonist Start: 10-05-2021 take 1 tablet by mouth twice daily Hydrocodone-Acetaminophen Active 1 TABLET PO TWICE A DAY October 05, 2021 12:00am albuterol 0.83 mg/ml inhalation solution (20 sources) beta2-Adrene rgic Agonist Start: 08-01-2024 Start: 04-14-2023 End: 03-15-2024 Start: 04-14-2023 Start: 04-08-2019 End: 09-06-2022 Start: 04-08-2019 End: 09-06-2022 Start: 04-08-2019 End: 09-06-2022 take 1 puff(s) by inhalation every four hours as needed Albuterol Sulfate Discontinued 2 PUFF INHALATION EVERY 4 HOURS NEEDED April 08, 2019 9:18am September 06, 2022 1:25pm Start: 09-26-2017 End: 04-08-2019 Start: 09-26-2017 End: 04-08-2019 Start: 09-26-2017 End: 04-08-2019 take 1 puff(s) by inhalation every four hours as needed Albuterol Sulfate Discontinued 2 PUFF INHALATION EVERY 4 HOURS NEEDED September 26, 2017 10:07am April 08, 2019 9:18am Start: 01-18-2017 End: 09-26-2017 Start: 01-18-2017 End: 09-26-2017 Start: 01-18-2017 End: 09-26-2017 take 1 puff(s) by inhalation every four hours as needed Albuterol Sulfate Discontinued 2 PUFF INHALATION EVERY 4 HOURS NEEDED January 18, 2017 12:00am September 26, 2017 10:08am bisacodyl 10 mg rectal suppo sitory (20 sources) Stimulant Laxative Start: 08-08-2023 Start: 08-08-2023 Start: 10-20-2022 End: 03-13-2023 Start: 10-20-2022 End: 03-13-2023 Start: 08-23-2021 Bisacodyl Acti ve 10 MG RC DAILY August 23, 2021 12:00am budesonide 0.5 mg/ml inhalat ion suspension (6 sources) Corticosteroid Start: 05-03-2024 Start: 03-15-2024 End: 05-03-2024 cefdinir 300 mg oral capsule (2 sources) Cephalosporin Antibacterial Start: 09-03-2024 cholecalciferol 0.05 mg oral capsule (20 sources) Vitamin D Start: 03-15-2024 Start: 12-12-2023 End: 03-15-2024 Start: 05-10-2022 End: 06-07-2023 Start: 05-10-2022 End: 09-07-2022 Start: 08-23-2021 End: 04-14-2022 Cholecalciferol, Vitamin D3, (VITAMIN D) 25 mcg (1,000 unit) cap Take by mouth once daily. Active cinacalcet 30 mg oral tablet (20 sources) Calcium-sensing Receptor Agonist Start: 03-15-2024 End: 08-01-2024 Start: 01-18-2022 End: 01-25-2024 Start: 2021 End: 11-24-2021 clopidogrel 75 mg oral table t (20 sources) P2Y12 Platelet Inhibitor Start: 03-15-2024 Start: 01-07-2015 End: 01-25-2024 fenofibrate 145 mg oral tabl et (20 sources) Peroxisome Proliferator Receptor alpha Agonist Start: 08-15-2024 Start: 08-11-2023 End: 08-15-2024 Start: 08-08-2023 End: 08-11-2023 Start: 10-21-2020 End: 08-08-2023 Flash Glucose Scanning Reade r (Freestyle Tiffanie 2 Riparius) misc (11 sources) Start: 02-16-2021 Flash Glucose Scanning Riparius (Freestyle Tiffanie 2 Riparius) misc Active 0 .ROUTE .MEDSUPPLY 1 February 16, 2021 12:31pm As directed Start: 02-16-2021 Flash Glucose Scanning Riparius (Freestyle Tiffanie 2 Riparius) misc Active 0 .ROUTE .MEDSUPPLY 1 February 16, 2021 12:00am As directed Start: 02-16-2021 Flash Glucose Scanning Riparius (Freestyle Tiffanie 2 Riparius) misc Active 0 .ROUTE .MEDSUPPLY 1 February 16, 2021 1:00am As directed Flash Glucose Sensor (Freest yle Tiffanie 2 Sensor) kit (11 sources) Start: 02-16-2021 Flash Glucose Sensor (Freestyle Tiffanie 2 Sensor) kit Active 0 .ROUTE .MEDSUPPLY 2 February 16, 2021 12:31pm As directed Start: 02-16-2021 Flash Glucose Sensor (Freestyle Tiffanie 2 Sensor) kit Active 0 .ROUTE .MEDSUPPLY 2 February 16, 2021 12:00am As directed Start: 02-16-2021 Flash Glucose Sensor (Freestyle Tiffanie 2 Sensor) kit Active 0 .ROUTE .MEDSUPPLY 2 February 16, 2021 1:00am As directed Handicap Placard (11 sources) Start: 04-08-[address] Active 0 .ROUTE .MEDSUPPLY April 08, 2020 5:40pm As directed, length of time 3 years Start: 04-08-[address] Active 0 .ROUTE .MEDSUPPLY April 08, 2020 12:00am As directed, length of time 3 years Start: 04-08-[address] Active 0 .ROUTE .MEDSUPPLY April 08, 2020 1:00am As directed, length of time 3 years hydrALAZINE hydrochloride 10 0 mg oral tablet (20 sources) Arteriolar Vasodilator Start: 02-21-2024 End: 02-21-2024 Start: 05-31-2023 End: 02-21-2024 Start: 05-31-2023 End: 08-08-2023 icosapent ethyl 1000 mg oral capsule (20 sources) Start: 05-11-2021 Icosapent Ethy l (Vascepa) 1 gram capsule Active 2 GM PO TWICE A DAY May 11, 2021 12:29pm Start: 03-20-2018 End: 07-21-2020 3 ml insulin glargine 100 un t/ml pen injector (20 sources) Insulin Analog Start: 03-15-2024 End: 07-22-2024 Start: 10-18-2022 End: 03-13-2023 3 ml insulin lispro 100 unt/ ml pen injector (20 sources) Insulin Analog Start: 03-15-2024 End: 07-22-2024 Start: 08-08-2023 Start: 08-08-2023 Start: 12-07-2018 End: 07-18-2019 Insulin Lispro (Humalog U-10 0 Insulin) 100 unit/mL solution Discontinued 90 UNIT SC THREE TIMES A DAY December 07, 2018 1:27pm July 18, 2019 2:23pm Start: 10-05-2018 End: 12-07-2018 Insulin Lispro (Humalog U-10 0 Insulin) 100 unit/mL solution Discontinued 80 UNIT SC THREE TIMES A DAY October 05, 2018 2:17pm December 07, 2018 1:30pm Start: 05-29-2018 End: 10-05-2018 Insulin Lispro (Humalog U-10 0 Insulin) 100 unit/mL solution Discontinued 60 UNIT SC THREE TIMES A DAY 60 May 29, 2018 1:37pm October 05, 2018 2:18pm Start: 03-12-2018 End: 07-18-2019 Start: 03-12-2018 End: 07-18-2019 Start: 03-12-2018 End: 05-29-2018 Insulin Lispro (Humalog U-10 0 Insulin) 100 unit/mL solution Discontinued 0 SC THREE TIMES A DAY March 12, 2018 1:00am May 29, 2018 12:36pm 40 units TIC ac SC TID; Start: 02-23-2018 End: 03-19-2018 Start: 02-23-2018 End: 03-19-2018 insulin lispro ( HUMALOG) 100 unit/mL injection Inject subcutaneously three times a day before meals. Per sliding scale Active inject 5 [IU] by sub cutaneous injection once daily, then inject 6 [IU] by subcutaneous injection once daily insulin lispro (HUMALOG KWIKPEN INSULIN SUBCUTANEOUS) Inject 5 Units subcutaneously once daily. 6 units subq daily Active lactic acid 50 mg/ml topical lotion (2 sources) Start: 08-01-2024 lactobacillus rhamnosus gg 2 [id number] unt oral capsule (5 sources) Start: 08-15-2024 End: 09-03-2024 take 1 capsule by mouth once messi ly lactobacillus rhamnosus (CULTURELLE) 10 billion cell capsule Take 1 capsule by mouth once daily. Active magnesium hydroxide 80 mg/ml oral suspension (7 sources) Start: 08-23-2021 take 1 mL by mouth once daily Magnesium Hydroxide (Milk Of Magnesia) 400 mg/5 mL Suspension Active 30 ML PO DAILY August 23, 2021 12:00am mineral oil 1000 mg/ml enema (4 sources) Start: 08-08-2023 Start: 08-08-2023 PARoxetine hydrochloride 40 mg oral tablet (20 sources) Serotonin Reuptake Inhibitor Start: 04-14-2023 End: 05-19-2023 Start: 02-08-2018 End: 03-18-2023 Semaglutide (20 sources) Start: 03-15-2024 Start: 09-10-2023 End: 01-25-2024 Start: 08-25-2023 End: 09-10-2023 Start: 08-25-2023 End: 08-25-2023 Start: 08-11-2023 End: 08-11-2023 Start: 07-29-2023 End: 07-31-2023 Start: 04-26-2023 End: 07-11-2023 Start: 04-26-2023 Start: 03-07-2023 End: 03-18-2023 Start: 03-07-2023 Start: 12-28-2022 End: 03-07-2023 Start: 12-28-2022 Start: 09-06-2022 End: 12-28-2022 Start: 09-06-2022 Start: 09-06-2022 Semaglutide (O zempic) 1 mg/dose (4 mg/3 mL) pen injector Active 1 MG SC EVERY WEEK 3 September 06, 2022 1:50pm Start: 05-24-2022 End: 09-06-2022 Start: 05-24-2022 End: 09-06-2022 Semaglutide (Ozempic) 1 mg/d ose (4 mg/3 mL) pen injector Discontinued 1 MG SC EVERY WEEK 3 May 24, 2022 1:00am September 06, 2022 1:51pm Start: 05-24-2022 semaglutide 4 mg/3 mL (1.33 mg/mL) subcutaneous compounded injection (1 source) inject 1 mg by subcutaneous injection every week semaglutide 4 mg/3 mL (1.33 mg/mL) subcutaneous compounded injection Inject 1 mg subcutaneously one time a week. Active spironolactone 25 mg oral tablet (3 sources) Aldosterone Antagonist Start: tamsulosin hydrochloride 0.4 mg oral capsule (1 source) alpha-Adrenergic Robinson Start: End: take 1 capsule by mouth once daily at bedtime tamsulosin (FLOMAX) 0.4 mg Take 1 capsule by mouth once daily. At bedtime 90 capsule 2 09/18/2024 06/15/2025 Active traZODone hydrochloride 50 mg oral tablet (20 sources) Serotonin Reuptake Inhibitor Start: 10-05-2 020 take 50 mg by mouth at bedtime Trazodone Active 50 MG PO AT BEDTIME January 13, 2020 12:00am Start: 03-05-2019 End: 08-29-2019 take 50 mg by mouth at bedtime Trazodone Discontinued 50 MG PO AT BEDTIME March 05, 2019 1:00am August 29, 2019 9:52am Start: 01-07-2019 End: 02-08-2019 take 50 mg by mouth at bedtime Trazodone Discontinued 50 MG PO AT BEDTIME January 07, 2019 3:30pm February 08, 2019 3:29pm Start: 10-05-2018 End: 08-29-2019 Start: 10-05-2018 End: 08-29-2019 Start: 10-05-2018 End: 12-04-2018 take 50 mg by mouth at bedtime Trazodone Discontinued 50 MG PO AT BEDTIME November 02, 2018 7:38am December 04, 2018 1:33pm Completed/Discontinued Medications Medication Drug Class(es) Dates Sig (Normalized) Sig (Original) acetaminophen 325 mg / oxyCODONE hydrochloride 5 mg oral tablet (20 sources) Opioid Agonist Start: 09-03-2020 End: 10-16-2020 Start: 09-03-2020 End: 10-16-2020 Start: 09-03-2020 End: 10-16-2020 take 1 tablet by mouth every eight hours Oxycodone-Acetaminophen (Percocet) 5-325 mg tablet Discontinued 1 TABLET PO Q8H 10 3 September 03, 2020 October 16, 2020 11:18am albuterol 0.833 mg/ml / ipratropium bromide 0.167 mg/ml inhalation solution (3 sources) Anticholinergic, beta2-Adrenergic Agonist Start: 12-07-2023 End: 03-15-2024 amLODIPine 10 mg oral tablet (20 sources) Dihydropyridine Calcium Channel Robinson Start: 12-07-2023 End: 03-15-2024 Start: 03-18-2023 End: 12-07-2023 Start: 03-18-2023 End: 04-14-2023 Start: 01-07-2015 End: 03-18-2023 amoxicillin 875 mg / clavula foster 125 mg oral tablet (20 sources) Penicillin-class Antibacterial Start: 05-21-2021 End: 07-08-2021 apixaban 5 mg oral tablet (20 sources) Factor Xa Inhibitor Start: 10-27-2022 End: 03-03-2023 Start: 10-27-2022 End: 03-03-2023 aspirin 81 mg chewable tablet (20 sources) Platelet Aggregation Inhibitor, Nonsteroidal Anti-inflammatory Drug Start: 05-12-2016 End: 01-18-2017 Start: 01-07-2015 End: 04-14-2022 atorvastatin 40 mg oral tabl et (20 sources) HMG-CoA Reductase Inhibitor Start: 07-13-2018 End: 04-14-2022 Start: 07-13-2018 End: 04-14-2022 Start: 07-13-2018 End: 04-14-2022 take 40 mg by mouth at bedtime Atorvastatin Discontinu ed 40 MG PO AT BEDTIME 60 December 03, 2020 8:12am February 16, 2021 12:39pm Start: 01-22-2018 End: 07-13-2018 take 40 mg by mouth at bedtime Atorvastatin Discontinu ed 40 MG PO AT BEDTIME January 22, 2018 2:51pm July 13, 2018 11:47am Start: 01-07-2015 End: 07-13-2018 Start: 01-07-2015 End: 07-13-2018 Start: 01-07-2015 End: 01-22-2018 take 80 mg by mouth at bedtime Atorvastatin Discontinu ed 80 MG PO AT BEDTIME January 07, 2015 12:00am January 22, 2018 2:55pm Blood Sugar Diagnostic (20 sources) Start: 03-13-2019 End: 04-24-2019 Blood Sugar Diagnostic Disco ntinued 0 .ROUTE .MEDSUPPLY March 13, 2019 3:28pm April 24, 2019 1:23pm As directed tid for (E11.9) Type 2 Diabetes [facility] Start: 03-13-2019 End: 04-24-2019 Blood Sugar Diagnostic Disco ntinued 0 .ROUTE .MEDSUPPLY March 13, 2019 4:28pm April 24, 2019 2:23pm As directed tid for (E11.9) Type 2 Diabetes [facility] Start: 03-13-2019 End: 03-13-2019 Blood Sugar Diagnostic Disco ntinued 0 .ROUTE .MEDSUPPLY March 13, 2019 3:20pm March 13, 2019 3:28pm As directed tid for (E11.9) Type 2 Diabetes [facility] Start: 03-13-2019 End: 03-13-2019 Blood Sugar Diagnostic Disco ntinued 0 .ROUTE .MEDSUPPLY [facility] March 13, 2019 4:20pm March 13, 2019 4:28pm As directed tid for (E11.9) Type 2 Diabetes [facility] Start: 03-13-2019 End: 03-13-2019 Blood Sugar Diagnostic Disco ntinued 0 .ROUTE .MEDSUPPLY [facility] March 13, 2019 4:16pm March 13, 2019 4:21pm As directed tid for (E11.9) Type 2 Diabetes Start: 03-13-2019 End: 03-13-2019 Blood Sugar Diagnostic Disco ntinued 0 .ROUTE .MEDSULY [facility] March 13, 2019 12:00am March 13, 2019 3:21pm As directed tid for (E11.9) Type 2 Diabetes Start: 03-13-2019 End: 03-13-2019 Blood Sugar Diagnostic Disco ntinued 0 .ROUTE .MEDSULY [facility] March 13, 2019 1:00am March 13, 2019 4:21pm As directed tid for (E11.9) Type 2 Diabetes cephalexin 500 mg oral capsu le (20 sources) Cephalosporin Antibacterial Start: 02-23-2018 End: 03-08-2018 Start: 09-03-2017 End: 01-22-2018 Start: 09-03-2017 End: 01-22-2018 take 500 mg by mouth every twelve hours Cephalexin Discontinued 500 MG PO Q12H September 03, 2017 12:00am January 22, 2018 2:52pm docusate sodium 50 mg / [facility] 8.6 mg oral tablet (16 sources) Start: 07-31-2023 End: 08-11-2023 Start: 07-31-2023 End: 08-11-2023 Start: 06-20-2023 End: 07-28-2023 Start: 06-20-2023 End: 07-28-2023 Start: 10-18-2022 doxycycline hyclate 100 mg o ral tablet (20 sources) Tetracycline-class Drug Start: 08-12-2024 End: 09-03-2024 Start: 04-14-2022 End: 05-19-2022 0.5 ml dulaglutide 3 mg/ml a uto-injector (20 sources) GLP-1 Receptor Agonist Start: 07-11-2023 End: 07-31-2023 Start: 07-11-2023 End: 07-31-2023 Start: 02-16-2022 End: 05-24-2022 Dulaglutide (Trulicity) 3 mg /0.5 mL pen injector Discontinued 3 MG SC EVERY WEEK 2 February 16, 2022 12:18pm May 24, 2022 2:33pm Start: 02-16-2022 End: 05-24-2022 Start: 02-16-2022 Start: 02-16-2022 Dulaglutide (T rulicity) 3 mg/0.5 mL pen injector Active 3 MG SC EVERY WEEK 2 February 16, 2022 11:18am Start: 11-24-2021 End: 02-16-2022 Dulaglutide (Trulicity) 3 mg /0.5 mL pen injector Discontinued 3 MG SC EVERY WEEK 2 November 24, 2021 12:00am February 16, 2022 12:19pm Start: 11-24-2021 End: 02-16-2022 Start: 11-24-2021 End: 02-16-2022 Dulaglutide (Trulicity) 3 mg /0.5 mL pen injector Discontinued 3 MG SC EVERY WEEK 2 November 23, 2021 11:00pm February 16, 2022 11:19am Start: 11-24-2021 Dulaglutide (T rulicity) 3 mg/0.5 mL pen injector Active 3 MG SC EVERY WEEK 2 November 24, 2021 12:00am Start: 09-01-2021 End: 11-24-2021 Start: 09-01-2021 End: 11-24-2021 Start: 09-01-2021 End: 11-24-2021 Dulaglutide (Trulicity) 1.5 mg/0.5 mL pen injector Discontinued 1.5 MG SC EVERY WEEK September 01, 2021 12:00am November 24, 2021 11:36am Start: 02-16-2021 Dulaglutide (T rulicity) 1.5 mg/0.5 mL pen injector Active 1.5 MG SC EVERY WEEK 2 February 16, 2021 12:36pm take on fridays empagliflozin 25 mg oral tab let (20 sources) Sodium-Glucose Cotransporter 2 Inhibitor Start: 10-18-2019 End: 09-01-2021 ferrous sulfate 325 mg oral tablet (20 sources) Start: 02-18-2022 End: 05-19-2023 take 1 tablet by mouth once gudelia y ferrous sulfate 325 mg (65 mg iron) EC tablet Take 325 mg by mouth once daily. Active Fluad 65yr up(PF)45 mcg(15 mcgx3)/0.5 mL intramuscular syringe (flu vac (3 sources) Start: 01-09-2018 End: 01-09-2018 inject 1 mL by intramuscular injection once Fluad 65yr up(PF)45 mcg(15 mcgx3)/0.5 mL intramuscular syringe (flu vac Discontinued 0.5 ML IM ONCE 0.5 January 09, 2018 9:58am January 09, 2018 11:06am Flucelvax Quad [id number] (flu vac qs 2020-(6 ms up) CD) 60 mcg (15 mcg x (3 sources) Start: 01-26-2021 End: 01-26-2021 inject 15 ug by intramuscular injection once Flucelvax Quad [id number] (flu vac qs 2020-(6 ms up) CD) 60 mcg (15 mcg x Discontinued 60 MCG IM ONCE 0.5 January 26, 2021 9:38am January 26, 2021 10:21am furosemide 40 mg oral tablet (20 sources) Loop Diuretic Start: 04-14-2023 End: 08-15-2024 Start: 08-06-2021 End: 03-18-2023 Start: 08-06-2021 End: 09-09-2022 Start: 08-06-2021 End: 06-07-2022 take 60 mg by mouth twice daily Furosemide Discontinue d 60 MG PO TWICE A DAY 540 90 August 27, 2021 4:28pm June 07, 2022 3:49pm Start: 08-06-2021 End: 08-23-2021 take 1 tablet by mouth twice daily Furosemide Discontinued 20 MG PO TWICE A DAY 180 August 09, 2021 12:03pm August 23, 2021 2:52pm Take 1 tablet PO BID in addition to 40 mg tablet to equal 60 mg BID Start: 01-13-2020 End: 08-06-2020 Start: 01-13-2020 End: 08-06-2020 take 1 tablet by mouth twice daily Furosemide (Lasix) 20 mg tablet Discontinued 20 MG PO TWICE A DAY January 13, 2020 12:00am August 06, 2020 4:58pm Start: 07-13-2018 End: 09-09-2019 Start: 07-13-2018 End: 09-09-2019 take 40 mg by mouth once daily, then take 60 mg by mouth twice daily Furosemide Discontinued 20 MG PO DAILY September 09, 2019 12:26pm September 09, 2019 12:28pm Take with 40mg Lasix for a total daily dose of 60mg BID. Start: 01-22-2018 End: 08-06-2021 Start: 01-22-2018 End: 08-06-2021 take 60 mg by mouth twice daily Furosemide Discontinue d 60 MG PO TWICE A DAY May 04, 2021 5:09pm August 06, 2021 2:41pm Start: 06-11-2017 End: 06-19-2017 Start: 01-07-2015 End: 01-22-2018 Start: 01-07-2015 End: 01-22-2018 take 3 tablets by mo uth once daily furosemide (LASIX) 20 mg tablet Take 60 mg by mouth once daily. Active glimepiride 4 mg oral tablet (20 sources) Sulfonylurea Start: 01-07-2015 End: 05-04-2021 glucose 0.4 mg/mg oral gel (20 sources) Start: 10-20-2022 End: 03-18-2023 Start: 10-20-2022 End: 03-18-2023 guaiFENesin 40 mg/ml oral so lution (20 sources) Start: 10-20-2022 End: 03-18-2023 Start: 10-20-2022 End: 03-18-2023 insulin aspart, human 100 unt/ml injectable solution (20 sources) Insulin Analog Start: 03-08-2018 End: 03-12-2018 insulin detemir 100 unt/ml injectable solution (20 sources) Insulin Analog Start: 10-05-2018 End: 12-07-2018 Insulin Detemir U-100 (Levemir U-100 Insulin) 100 unit/mL solution Discontinued 82 UNIT SC TWICE A DAY October 05, 2018 2:37pm December 07, 2018 1:30pm Start: 10-05-2018 End: 10-05-2018 Insulin Detemir U-100 (Levem ir U-100 Insulin) 100 unit/mL solution Discontinued 80 UNIT SC TWICE A DAY October 05, 2018 2:17pm October 05, 2018 2:41pm Start: 08-21-2018 End: 10-05-2018 Insulin Detemir U-100 (Levem ir U-100 Insulin) 100 unit/mL solution Discontinued 70 UNIT SC TWICE A DAY 126 90 August 21, 2018 11:42am October 05, 2018 2:18pm Start: 07-23-2018 End: 08-21-2018 Insulin Detemir U-100 (Levem ir U-100 Insulin) 100 unit/mL solution Discontinued 66 UNIT SC TWICE A DAY 10 July 23, 2018 8:31am August 21, 2018 11:42am Start: 07-23-2018 End: 07-23-2018 Insulin Detemir U-100 (Levem ir U-100 Insulin) 100 unit/mL solution Discontinued 64 UNIT SC TWICE A DAY July 23, 2018 8:13am July 23, 2018 8:32am Start: 07-13-2018 End: 07-23-2018 Insulin Detemir U-100 (Levem ir U-100 Insulin) 100 unit/mL solution Discontinued 62 UNIT SC TWICE A DAY 40 July 13, 2018 11:45am July 23, 2018 8:14am Start: 05-29-2018 End: 07-13-2018 Insulin Detemir U-100 (Levem ir U-100 Insulin) 100 unit/mL solution Discontinued 60 UNIT SC TWICE A DAY 40 May 29, 2018 12:33pm July 13, 2018 11:47am Start: 03-19-2018 End: 05-29-2018 Insulin Detemir U-100 (Levem ir U-100 Insulin) 100 unit/mL solution Discontinued 55 UNIT SC TWICE A DAY March 19, 2018 10:52am May 29, 2018 12:37pm Start: 02-08-2018 End: 03-19-2018 Insulin Detemir U-100 (Levem ir U-100 Insulin) 100 unit/mL solution Discontinued 50 UNIT SC TWICE A DAY February 08, 2018 4:22pm March 19, 2018 10:55am Start: 01-22-2018 End: 02-08-2018 Insulin Detemir U-100 (Levem ir U-100 Insulin) 100 unit/mL solution Discontinued 30 UNIT SC THREE TIMES A DAY February 08, 2018 2:08pm February 08, 2018 4:23pm Start: 01-18-2018 End: 12-07-2018 Start: 01-18-2018 End: 12-07-2018 Start: 01-18-2018 End: 01-22-2018 Insulin Detemir U-100 (Levem ir U-100 Insulin) 100 unit/mL solution Discontinued 200 UNIT SC TWICE A DAY January 18, 2018 12:00am January 22, 2018 2:55pm 3 ml insulin, regular, human 500 unt/ml pen injector (20 sources) Insulin Start: 07-29-2023 End: 07-31-2023 Start: 04-26-2023 End: 04-29-2023 Start: 11-24-2021 End: 09-06-2022 Insulin Regular Hum U-500 Co nc (Humulin R U-500 (Conc) Kwikpen) 500 unit/mL (3 mL) insulin pen Active 30 UNIT SC .TIDCM 6 September 06, 2022 1:50pm Start: 09-02-2021 End: 11-24-2021 Insulin Regular Hum U-500 Co nc (Humulin R U-500 (Conc) Kwikpen) 500 unit/mL (3 mL) insulin pen Discontinued 45 UNIT SC .TIDCM 8.1 September 02, 2021 9:17am November 24, 2021 1:06pm Start: 08-23-2021 End: 03-18-2023 Start: 08-23-2021 End: 09-02-2021 Insulin Regular Hum U-500 Co nc (Humulin R U-500 (Conc) Kwikpen) 500 unit/mL (3 mL) Insulin Pen Discontinued 30 UNIT SC DINNER@1700 August 23, 2021 12:00am September 02, 2021 9:20am Start: 08-23-2021 End: 09-02-2021 Insulin Regular Hum U-500 Co nc (Humulin R U-500 (Conc) Kwikpen) 500 unit/mL (3 mL) Insulin Pen Discontinued 40 UNIT SC BREAKFAST@08August 23, 2021 12:00am September 02, 2021 9:19am Start: 05-04-2021 Insulin Regula r Hum U-500 Conc (Humulin R U-500 (Conc) Kwikpen) 500 unit/mL (3 mL) insulin pen Active 0 SC AT BEDTIME May 04, 2021 5:12pm 80 units breakfast, 60 lunch, 90 units supper subcut at bedtime; Start: 10-29-2020 End: 05-04-2021 Start: 10-29-2020 End: 05-04-2021 Insulin Regular Hum U-500 Co nc (Humulin R U-500 (Conc) Kwikpen) 500 unit/mL (3 mL) insulin pen Discontinued 0 SC AT BEDTIME October 30, 2020 2:00pm May 04, 2021 5:14pm 120 units breakfast, 40 lunch, 170 units supper subcut at bedtime; 330u/day Start: 10-13-2020 End: 10-27-2020 Insulin Regular Hum U-500 Co nc (Humulin R U-500 (Conc) Kwikpen) 500 unit/mL (3 mL) insulin pen Discontinued 0 SC AT BEDTIME October 13, 2020 1:41pm October 27, 2020 10:58am 120 units breakfast, 40 lunch, 170 units supper subcut at bedtime; 330u/day Start: 10-22-2019 End: 10-27-2020 Start: 10-22-2019 End: 10-13-2020 Insulin Regular Hum U-500 Co nc (Humulin R U-500 (Conc) Kwikpen) 500 unit/mL (3 mL) insulin pen Discontinued 0 SC AT BEDTIME July 23, 2020 12:48pm October 13, 2020 1:42pm 120 units breakfast, 40 lunch, 170 units supper subcut at bedtime; Start: 10-22-2019 End: 10-13-2020 inject 40 [IU] by subcutaneous injection at lunch Insulin Regular Hum U-500 Conc Discontinued 40 UNIT SQ WITH LUNCH October 22, 2019 12:00am October 13, 2020 1:34pm Start: 10-22-2019 End: 10-13-2020 inject 170 [IU] by subcutaneous injection at dinner Insulin Regular Hum U-500 Conc Discontinued 170 UNIT SQ WITH DINNER October 22, 2019 12:00am October 13, 2020 1:34pm Start: 06-10-2017 End: 01-22-2018 lidocaine 0.05 mg/mg medicated patch (11 sources) Antiarrhythmic, Amide Local Anesthetic Start: 06-08-2023 End: 07-31-2023 Start: 06-08-2023 End: 07-31-2023 LORazepam 0.5 mg oral tablet (20 sources) Benzodiazepine Start: 01-18-2017 End: 01-22-2018 losartan potassium 25 mg ora l tablet (20 sources) Angiotensin 2 Receptor Robinson Start: 12-01-2021 End: 02-12-2024 Start: 08-21-2018 End: 01-12-2021 Start: 02-13-2018 End: 08-21-2018 meclizine hydrochloride 12.5 mg oral tablet (20 sources) Antiemetic Start: 05-21-2021 End: 04-14-2022 metFORMIN hydrochloride 1000 mg oral tablet (20 sources) Biguanide Start: 01-07-2015 End: 10-27-2022 metOLazone 2.5 mg oral tablet (20 sources) Thiazide-like Diuretic Start: 02-08-2018 End: 03-28-2018 take 2.5 mg by mouth once Metolazone Discontinued 2.5 MG PO ONCE February 08, 2018 12:00am March 28, 2018 3:36pm Start: 05-10-2016 End: 10-22-2019 24 hr metoprolol succinate 5 0 mg extended release oral tablet (20 sources) beta-Adrenergic Robinson Start: 04-26-2023 End: 06-12-2023 Start: 03-18-2023 End: 04-26-2023 Start: 07-20-2022 End: 03-18-2023 Start: 08-09-2021 End: 07-20-2022 Start: 08-09-2021 End: 10-13-2021 take 100 mg by mouth twice daily Metoprolol Succinate Discontinued 100 MG PO TWICE A DAY 180 August 09, 2021 12:03pm October 13, 2021 11:11am Start: 01-07-2015 End: 08-09-2021 metroNIDAZOLE 500 mg oral tablet (2 sources) Nitroimidazole Antimicrobial Start: 09-10-2024 End: 09-24-2024 Multivitamin With Folic Acid (11 sources) Start: 05-10-2016 End: 01-22-2018 take 1 tablet by mouth once daily Multivitamin With Folic Acid Discontinued 1 TABLET PO DAILY May 10, 2016 11:37am January 22, 2018 2:55pm Start: 05-10-2016 End: 01-22-2018 take 1 tablet by mouth once daily Multivitamin With Folic Acid Discontinued 1 TABLET PO DAILY May 10, 2016 12:00am January 22, 2018 1:55pm Start: 05-10-2016 End: 01-22-2018 take 1 tablet by mouth once daily Multivitamin With Folic Acid Discontinued 1 TABLET PO DAILY May 10, 2016 1:00am January 22, 2018 2:55pm naproxen sodium 220 mg oral tablet (20 sources) Nonsteroidal Anti-inflammatory Drug Start: 04-14-2022 End: 10-18-2022 nitrofurantoin, macrocrystal s 25 mg / nitrofurantoin, monohydrate 75 mg oral capsule (9 sources) Nitrofuran Antibacterial Start: 06-13-2023 End: 06-18-2023 Start: 06-13-2023 End: 06-18-2023 nitroglycerin 0.4 mg subling ual tablet (20 sources) Nitrate Vasodilator Start: 04-14-2023 End: 07-31-2023 Start: 04-14-2023 End: 07-31-2023 Start: 02-22-2022 Nitroglycerin Active 0 .ROUTE .COMPLEX February 22, 2022 9:30am DISSOLVE 1 TABLET UNDER THE TONGUE NEEDED FOR CHEST PAIN EVERY 5 MINUTES UP TO 3 TIMES. IF NO RELIEF CALL 911. Start: 01-19-2017 End: 02-22-2022 Start: 01-19-2017 End: 03-18-2023 Start: 01-19-2017 End: 02-22-2022 Nitroglycerin Discontinued 0 .4 MG SL Q5M October 15, 2021 9:11am February 22, 2022 9:30am ondansetron 8 mg disintegrat ing oral tablet (20 sources) Serotonin-3 Receptor Antagonist Start: 02-23-2018 End: 07-13-2018 oxyCODONE hydrochloride 5 mg oral tablet (20 sources) Opioid Agonist Start: 04-29-2023 End: 08-01-2024 Start: 04-29-2023 End: 07-31-2023 Start: 04-14-2023 End: 04-26-2023 Start: 04-14-2023 End: 04-26-2023 take 1 capsule by mo uth every six hours as needed oxyCODONE ir (OXYIR) 5 mg capsule Take 5 mg by mouth every 6 hours as needed for pain. 0 Active pantoprazole 40 mg delayed r elease oral tablet (20 sources) Proton Pump Inhibitor Start: 03-03-2023 End: 07-11-2023 Start: 03-03-2023 End: 07-11-2023 take 40 mg by mouth once daily in the morning pantoprazole (PROTONIX) 40 mg grps Take 40 mg by mouth daily at 6 am. Active Pen Needle, Diabetic (11 sources) Start: 03-13-2019 End: 03-20-2019 Pen Needle, Diabetic Discont inued 0 .ROUTE .MEDSUPPLY 200 March 13, 2019 4:16pm March 20, 2019 1:24pm As directed BID for (E11.9) Type 2 Diabetes Start: 03-13-2019 End: 03-20-2019 Pen Needle, Diabetic Discont inued 0 .ROUTE .MEDSUPPLY 200 March 13, 2019 12:00am March 20, 2019 12:24pm As directed BID for (E11.9) Type 2 Diabetes Start: 03-13-2019 End: 03-20-2019 Pen Needle, Diabetic Discont inued 0 .ROUTE .MEDSUPPLY 200 March 13, 2019 1:00am March 20, 2019 1:24pm As directed BID for (E11.9) Type 2 Diabetes polyethylene glycol 3350 170 00 mg powder for oral solution (9 sources) Osmotic Laxative Start: 06-20-2023 End: 07-28-2023 Start: 06-20-2023 End: 07-28-2023 microencapsulated potassium chloride 20 meq extended release oral tablet (20 sources) Start: 06-07-2023 End: 08-15-2024 Start: 04-26-2023 Start: 04-14-2023 End: 06-07-2023 Start: 06-30-2017 End: 03-18-2023 Start: 06-30-2017 End: 12-04-2018 take 40 mEq by mouth three times daily Potassium Chloride Discontinued 40 MEQ PO THREE TIMES A DAY 270 November 02, 2018 7:38am December 04, 2018 5:35pm Start: 01-07-2015 End: 06-06-2017 take 1 tablet by andre th once daily potassium chloride ER (KLOR-CON) 20 mEq tablet Take 20 mEq by mouth once daily. Active predniSONE 20 mg oral tablet (20 sources) Start: 03-15-2024 End: 04-25-2024 Start: 04-14-2022 End: 05-19-2022 12 hr ranolazine 500 mg exte nded release oral tablet (20 sources) Anti-anginal Start: 01-11-2022 End: 12-20-2022 Start: 02-08-2018 End: 02-04-2021 Start: 02-08-2018 End: 01-13-2020 take 1 tablet by mouth once daily Ranolazine (Ranexa) 500 mg tablet extended release 12 hr Discontinued 500 MG PO daily 180 August 20, 2019 7:39am October 22, 2019 4:42pm Start: 01-18-2017 End: 07-18-2017 Start: 01-18-2017 End: 07-18-2017 take 500 mg by mouth once daily Ranolazine Discontinue d 500 MG PO DAILY January 18, 2017 12:00am July 18, 2017 12:33pm sodium phosphate, dibasic 59 .3 mg/ml / sodium phosphate, monobasic 161 mg/ml enema (20 sources) Start: 10-20-2022 End: 03-18-2023 Start: 10-20-2022 End: 03-18-2023 Start: 08-23-2021 Sodium Phospha kym (Enema) 19-7 gram/118 mL Enema Active 118 ML RC DAILY August 23, 2021 12:00am sucralfate 1000 mg oral tabl et (20 sources) Aluminum Complex Start: 03-03-2023 End: 08-08-2023 Start: 03-03-2023 End: 08-08-2023 tetracycline hydrochloride 5 00 mg oral capsule (2 sources) Tetracycline-class Antimicrobial Start: 09-10-2024 End: 09-24-2024 traMADol hydrochloride 50 mg oral tablet (20 sources) Opioid Agonist Start: 03-18-2023 End: 04-14-2023 Start: 03-18-2023 End: 04-14-2023 Start: 10-18-2022 End: 03-13-2023 Start: 10-18-2022 End: 03-13-2023 warfarin sodium 7.5 mg oral tablet (20 sources) Vitamin K Antagonist Start: 05-10-2016 End: 02-05-2017 (20 sources) Start: 09-10-2024 End: 09-24-2024 Start: 08-01-2024 End: 09-03-2024 Start: 03-15-2024 End: 08-01-2024 Start: 03-15-2024 Start: 08-08-2023 Start: 07-31-2023 End: 03-15-2024 Start: 07-31-2023 Start: 07-28-2023 End: 07-31-2023 Start: 05-19-2023 Start: 04-15-2023 End: 07-31-2023 Start: 04-15-2023 Start: 04-15-2023 End: 07-11-2023 Start: 04-15-2023 Start: 04-14-2023 End: 04-26-2023 Start: 04-14-2023 Start: 03-07-2023 End: 07-28-2023 Start: 03-07-2023 Start: 10-20-2022 End: 03-18-2023 Start: 10-20-2022 End: 03-18-2023 Start: 10-20-2022 End: 03-13-2023 Start: 10-20-2022 Start: 09-06-2022 End: 03-07-2023 Start: 09-06-2022 Start: 04-08-2022 End: 07-31-2023 Start: 04-08-2022 Start: 02-16-2022 End: 09-06-2022 Start: 02-16-2022 Start: 02-16-2022 End: 02-16-2022 Start: 2021 End: 02-16-2022 Start: 02-16-2021 End: 04-08-2022 Start: 02-16-2021 End: 07-31-2023 Start: 02-16-2021 End: 04-15-2023 Start: 02-16-2021 Start: 11-23-2020 End: 02-16-2021 Start: 11-23-2020 End: 2021 Start: 04-08-2020 End: 07-31-2023 Start: 04-08-2020 Start: 01-21-2020 End: 11-23-2020 Start: 10-25-2019 End: 11-23-2020 Start: 03-13-2019 End: 04-24-2019 Start: 03-13-2019 End: 03-13-2019 Start: 03-13-2019 End: 03-20-2019 Start: 03-13-2019 End: 03-20-2019 Start: 03-13-2019 End: 03-13-2019 Start: 03-13-2018 End: 03-13-2019 Start: 03-08-2018 End: 03-13-2018 Start: 05-10-2016 End: 01-22-2018 Problems Active Problems Problem Classification Problem Date Documented Da te Episodic/Chronic Abdominal pain (20 sources) Abdominal pain; Translations: [Unspecified abdominal pain] Onset: 09-20-2024 03-13-2023 Episodic Acute and unspecified renal failure (20 sources) Acute renal failure syndrome; Translations: [Acute kidney failure, unspecified] 02-26-2023 Episodic Anxiety disorders (20 sources) Mixed anxiety and depressive disorder; Translations: [Anxiety disorder, unspecified] 08-18-2022 Chronic Asthma (9 sources) Asthma; Translations: [Unspecified asthma, uncomplicated] Onset: 05-27-2024 05-03-2024 Chronic Biliary tract disease (5 sources) Biliary sludge; Translations: [Other specified diseases of biliary tract] 06-28-2024 Chronic Cardiac dysrhythmias (20 sources) Atrial fibrillation; Translations: [Unspecified atrial fibrillation] 10-21-2022 Chronic Cardiac dysrhythmias (2 sources) Cardiac dysrhythmias Onset: 06-15-2017 Chronic kidney disease (20 sources) Chronic kidney disease stage 3B ; Translations: [Stage 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 disease] 03-07-2023 Chronic Chronic kidney disease (2 sources) Chronic kidney disease; Translations: [Chronic kidney disease, stage 3a] Onset: 05-27-2024 Chronic obstructive pulmonary disease and bronchiectasis (20 sources) Acute exacerbation of chronic obstructive airways disease; Translations: [Chronic obstructive pulmonary disease with (acute) exacerbation] Onset: 05-27-2024 10-23-2019 Chronic Chronic obstructive pulmonary disease and bronchiectasis (1 source) Chronic obstructive pulmonary disease and bronchiectasis Onset: 06-15-2017 Conditions associated with dizziness or vertigo (20 sources) Vertigo of central origin; Translations: [Vertigo of central origin] Episodic Conduction disorders (20 sources) Cardiac pacemaker in situ; Translations: [Presence of cardiac pacemaker] 06-20-2023 Chronic Congestive heart failure; nonhypertensive (20 sources) Congestive heart failure; Translations: [Heart failure, unspecified] Onset: 03-15-2024 05-20-2022 Chronic Congestive heart failure; nonhypertensive (1 source) Congestive heart failure; nonhypertensive Onset: 06-15-2017 Coronary atherosclerosis and other heart disease (20 sources) Coronary atherosclerosis; Translations: [Atherosclerotic heart disease of [place] coronary artery without angina pectoris] Chronic Coronary atherosclerosis and other heart disease (1 source) Coronary atherosclerosis and other heart disease Onset: 11-07-2017 Deficiency and other anemia (20 sources) Anemia; Translations: [Anemia, unspecified] 05-19-2022 Episodic Deficiency and other anemia (20 sources) Anemia, unspecified; Translations: [Anemia, unspecified] 05-19-2022 Episodic Deficiency and other anemia (20 sources) Chronic anemia; Translations: [Anemia, unspecified] 02-28-2023 Episodic Deficiency and other anemia (1 source) Deficiency and other anemia Onset: 06-15-2017 Diabetes mellitus with complications (20 sources) Latent autoimmune diabetes mellitus in adult; Translations: [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] Onset: 05-27-2024 Chronic Diabetes mellitus with complications (1 source) Diabetes mellitus with complications Onset: 11-07-2017 Diabetes mellitus without complication (20 sources) Diabetes mellitus; Translations: [Type 2 diabetes mellitus without complications] Chronic Disorders of lipid metabolism (20 sources) Hypertriglyceridemia; Translations: [Pure hyperglyceridemia] Onset: 12-07-2023 Chronic E Codes: Fall (20 sources) Fall; Translations: [Unspecified fall, initial encounter] 04-26-2023 Episodic Esophageal disorders (1 source) Esophageal disorders Onset: 06-15-2017 Essential hypertension (20 sources) Essential hypertension; Translations: [Essential (primary) hypertension] Onset: 05-27-2024 Chronic Essential hypertension (1 source) Essential hypertension Onset: 11-07-2017 Fluid and electrolyte disorders (20 sources) Hypokalemia; Translations: [Hypokalemia] 03-13-2023 Episodic Gastroduodenal ulcer (except hemorrhage) (20 sources) Gastric ulcer; Translations: [Gastric ulcer, unspecified as acute or chronic, without hemorrhage or perforation] 03-02-2023 Chronic Genitourinary symptoms and ill-defined conditions (2 sources) Increased frequency of urination; Translations: [Frequency of micturition] 09-18-2024 Episodic Hyperplasia of prostate (2 sources) Benign prostatic hypertrophy with outflow obstruction; Translations: [Benign prostatic hyperplasia with lower urinary tract symptoms] Onset: 09-18-2024 09-18-2024 Chronic Immunizations and screening for infectious disease (20 sources) Needs influenza immunization; Translations: [Encounter for immunization] 01-26-2021 Episodic Intestinal obstruction without hernia (3 sources) Intestinal obstruction co-occurrent and due to decreased peristalsis; Translations: [Ileus, unspecified] 09-19-2023 Episodic Malaise and fatigue (20 sources) Fatigue; Translations: [Other fatigue] Episodic Mood disorders (20 sources) Depressive disorder; Translations: [Depression] Chronic Nonspecific chest pain (20 sources) Chest discomfort; Translations: [Other chest pain] Episodic Nutritional deficiencies (20 sources) Vitamin D deficiency; Translations: [Vitamin D deficiency, unspecified] Onset: 12-07-2023 Chronic Open wounds of head; neck; and trunk (20 sources) Injury of head; Translations: [Unspecified open wound of unspecified part of head, initial encounter] 06-01-2018 Episodic Osteoarthritis (20 sources) Arthritis; Translations: [Unspecified osteoarthritis, unspecified site] 01-26-2021 Chronic Other aftercare (12 sources) longterm (current) use of antithrombotics/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; Translations: [Long-term (current) use of antiplatelet/antithro mbotic] 03-13-2023 Episodic Other aftercare (6 sources) Long-term current use of drug therapy; Translations: [longterm (current) use of antithrombotics/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] 03-13-2023 Episodic Other aftercare (2 sources) longterm (current) use of insulin; Translations: [longterm (current) use of insulin] Onset: 05-27-2024 Episodic Other and ill-defined heart disease (20 sources) Cardiomegaly; Translations: [Acquired left ventricular hypertrophy] 06-01-2018 Chronic Other and unspecified benign neoplasm (1 source) Benign neoplasm of middle ear, nasal cavity and accessory sinuses; Translations: [Benign neoplasm of mid ear, nasl cav and accessory sinuses] Onset: 11-06-2017 Episodic Other bone disease and musculoskeletal deformities (20 sources) Osteopenia; Translations: [Other specified disorders of bone density and structure, unspecified site] 11-24-2021 Episodic Other circulatory disease (3 sources) H/O: heart failure; Translations: [Personal history of other diseases of the circulatory system] 10-20-2023 Episodic Other connective tissue disease (20 sources) History of repair of hip joint; Translations: [Presence of unspecified artificial hip joint] 09-25-2020 Chronic Other connective tissue disease (20 sources) Olecranon bursitis; Translations: [Olecranon bursitis, unspecified elbow] 10-17-2022 Episodic Other connective tissue disease (3 sources) Olecranon bursitis, unspecified elbow; Translations: [Olecranon bursitis] 10-18-2022 Episodic Other diseases of kidney and ureters (20 sources) Renal impairment; Translations: [Disorder of kidney and ureter, unspecified] 05-20-2022 Episodic Other diseases of kidney and ureters (1 source) Other obstructive and reflux uropathy; Translations: [BPH with obstruction/lower urinary tract symptoms] Onset: 09-18-2024 Episodic Other diseases of veins and lymphatics (20 sources) Lymphedema of bilateral lower limbs; Translations: [Lymphedema, not elsewhere classified] 06-16-2021 Chronic Other diseases of veins and lymphatics (20 sources) Stasis dermatitis; Translations: [Venous insufficiency (chronic) (peripheral)] 06-16-2021 Episodic Other diseases of veins and lymphatics (13 sources) Disorder of vein of lower extremity; Translations: [Venous insufficiency (chronic) (peripheral)] 06-16-2021 Episodic Other endocrine disorders (20 sources) Primary hyperparathyroidism; Translations: [Primary hyperparathyroidism] 10-23-2021 Chronic Other endocrine disorders (20 sources) Hyperparathyroidism; Translations: [Hyperparathyroidism, unspecified] 11-24-2021 Chronic Other endocrine disorders (20 sources) Primary hyperparathyroidism; Translations: [Primary hyperparathyroidism] Onset: 05-27-2024 Chronic Other endocrine disorders (20 sources) Hyperparathyroidism, unspecified; Translations: [Hyperparathyroidism, unspecified] Chronic Other fractures (3 sources) Closed fracture of rib; Translations: [Fracture of one rib, unspecified side, initial encounter for closed fracture] 11-02-2023 Episodic Other gastrointestinal disorders (20 sources) Dark stools; Translations: [Other fecal abnormalities] 02-16-2022 Episodic Other gastrointestinal disorders (7 sources) Other fecal abnormalities; Translations: [Nonspecific abnormal findings in stool contents] Episodic Other injuries and conditions due to external causes (3 sources) Closed injury of head; Translations: [Unspecified injury of head, initial encounter] 11-02-2023 Episodic Other injuries and conditions due to external causes (3 sources) Contusion of multiple sites; Translations: [Unspecified multiple injuries, initial encounter] 11-02-2023 Episodic Other lower respiratory disease (20 sources) Dyspnea on exertion; Translations: [Dyspnea, unspecified] 05-20-2022 Episodic Other lower respiratory disease (20 sources) Hypoxia; Translations: [Hypoxemia] 06-01-2018 Episodic Other lower respiratory disease (3 sources) Dyspnea, unspecified; Translations: [Other respiratory abnormalities] Episodic Other lower respiratory disease (20 sources) Dyspnea; Translations: [Shortness of breath] 05-20-2022 Episodic Other lower respiratory disease (20 sources) Shortness of breath; Translations: [Shortness of breath] Onset: 08-24-2024 05-19-2022 Episodic Other lower respiratory disease (13 sources) Hypoxemia; Translations: [Hypoxemia] 02-26-2023 Episodic Other lower respiratory disease (3 sources) Cough; Translations: [Cough] 03-15-2024 Episodic Other nervous system disorders (15 sources) Walking disability; Translations: [Difficulty in walking, not elsewhere classified] 04-27-2023 Chronic Other nervous system disorders (20 sources) Difficulty in walking, not elsewhere classified; Translations: [Difficulty in walking] 04-29-2023 Chronic Other nervous system disorders (12 sources) Unable to walk; Translations: [Difficulty in walking, not elsewhere classified] 06-07-2023 Chronic Other nervous system disorders (1 source) Other chronic pain; Translations: [Other chronic pain] Onset: 03-15-2024 Chronic Other nervous system disorders (20 sources) H/O: respiratory disease; Translations: [Personal history of other diseases of the nervous system and sense organs] 06-16-2021 Episodic Other non-traumatic joint disorders (20 sources) Pain in elbow; Translations: [Pain in right elbow] 10-17-2022 Episodic Other non-traumatic joint disorders (4 sources) Pain in right elbow; Translations: [Pain in joint, upper arm] 10-18-2022 Episodic Other non-traumatic joint disorders (4 sources) Shoulder pain; Translations: [Pain in right shoulder] 08-11-2023 Episodic Other nutritional; endocrine; and metabolic disorders (20 sources) Body mass index 40+ - severely obese; Translations: [Morbid (severe) obesity due to excess calories] 06-01-2018 Chronic Other nutritional; endocrine; and metabolic disorders (20 sources) Obesity; Translations: [Obesity, unspecified] 01-21-2020 Chronic Other nutritional; endocrine; and metabolic disorders (20 sources) Hypercalcemia; Translations: [Hypercalcemia] 09-23-2019 Chronic Other nutritional; endocrine; and metabolic disorders (11 sources) Morbid (severe) obesity due to excess calories; Translations: [Morbid obesity] Chronic Other nutritional; endocrine; and metabolic disorders (20 sources) Obesity, unspecified; Translations: [Obesity, unspecified] Chronic Other nutritional; endocrine; and metabolic disorders (20 sources) Hypercalcemia; Translations: [Hypercalcemia] Chronic Other nutritional; endocrine; and metabolic disorders (1 source) Other obesity due to excess calories; Translations: [Other obesity due to excess calories] Onset: 05-27-2024 Chronic Other nutritional; endocrine; and metabolic disorders (1 source) Body mass index (BMI) 34.0-34.9, adult; Translations: [Body mass index [BMI] 34.0-34.9, adult] Onset: 05-27-2024 Chronic Other nutritional; endocrine; and metabolic disorders (1 source) Adult failure to thrive syndrome; Translations: [Adult failure to thrive] Episodic Other nutritional; endocrine; and metabolic disorders (1 source) Adult failure to thrive; Translations: [Adult failure to thrive] Episodic Other screening for suspected conditions (not mental disorders or infectious disease) (20 sources) Imaging of thorax abnormal; Translations: [Abnormal findings on diagnostic imaging of other specified body structures] Onset: 05-01-2024 06-01-2018 Chronic Other upper respiratory disease (20 sources) Bleeding from nose; Translations: [Epistaxis] 09-25-2020 Episodic Other upper respiratory infections (1 source) Chronic ethmoidal sinusitis; Translations: [Chronic ethmoidal sinusitis] Onset: 10-25-2017 Chronic Peripheral and visceral atherosclerosis (2 sources) Peripheral vascular disease; Translations: [Peripheral vascular disease, unspecified] 08-01-2024 Chronic Phlebitis; thrombophlebitis and thromboembolism (20 sources) H/O: Deep vein thrombosis; Translations: [Personal history of other venous thrombosis and embolism] 09-25-2020 Episodic Pulmonary heart disease (20 sources) Secondary pulmonary hypertension; Translations: [Secondary pulmonary hypertension] Chronic Pulmonary heart disease (20 sources) H/O: pulmonary embolus; Translations: [Personal history of pulmonary embolism] 06-01-2018 Episodic Residual codes; unclassified (20 sources) Obstructive sleep apnea syndrome; Translations: [Obstructive sleep apnea (adult) (pediatric)] 06-01-2018 Chronic Residual codes; unclassified (12 sources) Obstructive sleep apnea (adult) (pediatric); Translations: [Obstructive sleep apnea (adult)(pediatric)] Onset: 05-27-2024 Chronic Residual codes; unclassified (20 sources) Insomnia; Translations: [Insomnia, unspecified] 06-01-2018 Episodic Residual codes; unclassified (20 sources) History of eye AND/OR adnexa surgery; Translations: [Other specified postprocedural states] 09-25-2020 Episodic Residual codes; unclassified (18 sources) Edema of lower extremity; Translations: [Localized edema] 04-15-2023 Episodic Residual codes; unclassified (16 sources) Localized edema; Translations: [Edema] Onset: 08-15-2024 04-14-2023 Episodic Residual codes; unclassified (10 sources) Edema; Translations: [Edema, unspecified] 07-12-2023 Episodic Residual codes; unclassified (3 sources) Peripheral edema; Translations: [Localized edema] 10-20-2023 Episodic Residual codes; unclassified (4 sources) Lives in a half-way; Translations: [Other specified health status] 08-01-2024 Episodic Respiratory failure; insufficiency; arrest (adult) (20 sources) Chronic hypoxemic respiratory failure; Translations: [Chronic respiratory failure with hypoxia] Onset: 05-27-2024 Chronic Respiratory failure; insufficiency; arrest (adult) (8 sources) Acute hypoxemic respiratory failure; Translations: [Acute respiratory failure with hypoxia] 07-28-2023 Episodic Skin and subcutaneous tissue infections (20 sources) Abscess of scalp; Translations: [Cutaneous abscess of head [any part, except face]] Onset: 08-12-2024 02-24-2018 Episodic Spondylosis; intervertebral disc disorders; other back problems (20 sources) Sciatica; Translations: [Sciatica, unspecified side] 06-01-2018 Episodic Sprains and strains (20 sources) Sprain of right knee; Translations: [Sprain of unspecified site of right knee, initial encounter] 06-07-2023 Episodic Superficial injury; contusion (6 sources) Injury of forehead; Translations: [Contusion of other part of head, initial encounter] 11-02-2023 Episodic Syncope (20 sources) Near syncope; Translations: [Syncope and collapse] 06-01-2018 Episodic Unclassified (1 source) Anxiety disorder, unspecified / F41.9(ICD-10) Onset: 06-15-2017 Unclassified (1 source) 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 drugs / [...] / J34.2(ICD-10) Onset: 08-07-2017 Unclassified (1 source) longterm (current) use of aspirin / Z79.82(ICD-10) Onset: 08-07-2017 Unclassified (1 source) longterm (current) use of insulin / Z79.4(ICD-10) Onset: [...] Unclassified (1 source) Athscl heart disease of [place] coronary artery w/o ang pctrs / I25.10(ICD-10) [...] / Z68.41(ICD-10) Onset: 11-07-2017 Unclassified (1 source) 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 (current) use of antithrombotics/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 / Z79.02(ICD-10) [...] thrombosis and embolism / Z86.718(ICD-10) Onset: 11-07-2017 Unclassified (1 source) Cough, unspecified; Translations: [Cough, unspecified] Onset: 05-27-2024 Unclassified (1 source) Pain in other specified joint; Translations: [Pain in other specified joint] Onset: 05-24-2024 Past or Other Problems Problem Classification Problem Date Documented Da te Episodic/Chronic Cancer; other and unspecified primary (20 sources) H/O: neoplasm; Translations: [Personal history of other benign neoplasm] Onset: 8 09-25-2020 Episodic Cancer; other and unspecified primary (3 sources) Personal history of other benign neoplasm; Translations: [History of benign neoplasm of eye] Onset: 8 09-25-2020 Episodic Coronary atherosclerosis and other heart disease (14 sources) Presence of coronary angioplasty implant and graft; Translations: [Percutaneous transluminal coronary angioplasty status] Onset: 7 Episodic Gastrointestinal hemorrhage (20 sources) Gastrointestinal hemorrhage; Translations: [Gastrointestinal hemorrhage, unspecified] Onset: 4 02-28-2023 Episodic Other diseases of kidney and ureters (20 sources) Disorder of kidney and ureter, unspecified; Translations: [Unspecified disorder of kidney and ureter] Onset: 5 Episodic Other injuries and conditions due to external causes (1 source) Encounter for examination and observation following other accident; Translations: [Encounter for examination and observation following other accident] Onset: 5 Episodic Other lower respiratory disease (3 sources) Other forms of dyspnea; Translations: [Other respiratory abnormalities] Onset: 4 Episodic Other non-traumatic joint disorders (20 sources) Pain in right knee; Translations: [Chronic pain of both knees] Onset: 4 Episodic Other non-traumatic joint disorders (1 source) Pain in left knee; Translations: [Pain in left knee] Onset: 4 Episodic Other screening for suspected conditions (not mental disorders or infectious disease) (20 sources) Patient encounter status; Translations: [Encounter for screening for malignant neoplasm of colon] Onset: 4 10-27-2020 Episodic Other skin disorders (1 source) Localized swelling, mass and lump, head; Translations: [Localized swelling, mass and lump, head] Onset: 8 Episodic Other upper respiratory disease (1 source) Deviated nasal septum; Translations: [Deviated nasal septum] Onset: 8 Episodic Other upper respiratory disease (1 source) Nasal congestion; Translations: [Nasal congestion] Onset: 8 Episodic Residual codes; unclassified (7 sources) Edema, unspecified; Translations: [Edema] Onset: 4 07-12-2023 Episodic Results Test Name Value Interpretation Reference Range Facility [facility] 09-18-2024 CNOV Office Visit (UROLMD ) TEIXEIRASHADE ([id number]) 1955 M Date Time Provider Department 09/18/24 9:00 AM DELMY BURCIAGA UROBELINDA During your visit today, we recorded the following information about you: Delmy Burciaga PA-C 09/18/2024 10:31 AM Signed [facility] MALE PATIENT - HISTORY AND PHYSICAL EXAMINATION PATIENT: Shade Teixeira Patient has been identified by name and date of : Yes Recording using Modality software for draft documentation of the visit was discussed with the patient/authorized outside medical sales representative; all questions welcomed and answered. Patient/authorized outside medical sales representative agreed to proceed PCP: No primary care provider on file. CHIEF COMPLAINT: Trouble urinating HISTORY OF PRESENT ILLNESS: Mr. Teixeira is a 68 year old male with PMHx significant for CHF, DM2 on insulin, CKD3, CAD, COPD on 3 L of oxygen, HTN, HLD and FAVIAN presenting for trouble urinating. Patient reports he will urinate once normal and then 3 or 4 mintues he will go again. States he squats to help him fully empty his bladder. Reports he was previously hospitalized at [facility] for CHF and he was given heavy doses of IV lasix. He states there was one incident that required him to get a straight cath and they got out almost 400mL. Went home without a catheter. Review: Daytime frequency: Q 1 Hrs; on water pills Night time frequency: 1 X (wears BiPAP at night) Irritative (STORAGE) symptoms: - Bothersome frequency: Yes - Urgency: Yes - Incontinence: Stress No / Urge No - Wears depends when he is traveling due to the limited access of bathrooms Obstructive symptoms: - Force of stream Poor - Hesitancy Yes - Intermittency: Yes - Straining: No - Incomplete emptying: No- after he goes the second time he feels empty - Double voiding: Yes - Postvoid dribbling: Yes Current Urinary Status: - Indwelling catheter: None . - Current intermittent Catheterization: No - Gross hematuria: No - UTI: No, reports he has some burning with urination for last 2 years. Denies fever and chills. Drinks: Cranberry and orange juice in the morning. Diet coke, iced tea pure leaf unsweented and water. History of prosate cancer: unsure History of bladder cancer: none History of kidney cancer: none History of kidney stones: yes REVIEW OF SYSTEMS: Refer to HPI for relevant info PAST MEDICAL HISTORY: No past medical history on file. No past surgical history on file. No family history on file. MEDICATIONS: reviewed and confirmed with patient OFFICE DATA: reviewed 09/18/24 PVR: 0 ML - was unable to urinate in office. URINE POC: Was unable to provide urine sample OTHER DATA: reviewed Labs reviewed No results found for: PSA No results found for: TESTOST, TESTFREE No results found for: HBA1C No results found for: TSH No results found for: CREAT PHYSICAL EXAMINATION: The sensitive examination was discussed with the Patient or Patient's Authorized News Writer. As applicable, any other physician, advance practice provider, medical student, or other health professional student that will be observing or involved in the sensitive examination for educational or training purposes was discussed with the Patient or Authorized News Writer. The Patient or Authorized News Writer has agreed to proceed with the sensitive examination. (Sensitive examination includes inspection and/or palpation of the breasts, pelvis, prostate and anorectal regions) General appearance: cooperative, pleasant, no acute distress, alert and oriented Neuro: normal affect, normal speech, gait is normal. Lungs/chest: no signs of respiratory distress, no audible wheezing Prostate: Deffered by patient ASSESSMENT: 1. BPH with obstruction/lower urinary tract symptoms - ICD9: 600.01, 599.69, ICD10: N40.1, N13.8 (primary diagnosis) 2. Urinary frequency - ICD9: 788.41, ICD10: R35.0 3. Dysuria - ICD9: 788.1, ICD10: R30.0 4. Prostate cancer screening - ICD9: V76.44, ICD10: Z12.5 PLAN: ASSESSMENT/PLAN: 1. BPH with obstruction/lower urinary tract symptoms - ICD9: 600.01, 599.69, ICD10: N40.1, N13.8 (primary diagnosis) - severe obstructive luts symptoms - was unable to get UA/ accurate PVR- due to not being able to provide urine samples - Initiated tamsulosin 0.4 mg orally once daily at bedtime to improve urine flow by relaxing the bladder neck and prostate. Printed script. - Discussed potential side effects, including dizziness and retrograde ejaculation. - consider double flomax at next visit if symptoms don't improve - BACTERIAL CULTURE, URINE 2. Urinary frequency - ICD9: 788.41, ICD10: R35.0 - urinating every hour - currently taking lasix - drinks bladder irritants ( diet coke, tea, and juice) - discussed bladder hygiene 3. Dysuria - ICD9: 788.1, ICD10: R3 (more content not included)... Normal [facility] Glucose measurement at [facility] deOrdered By: Louie Gonzales on 09-04-2024 Glucose [Mass/Vol] 125 mg/dL High 74-106 [facility] Absolute lymphocyte countOrd ered By: Chey Kearney on 08-12-2024 Lymphocytes Auto (Unsp spec) [#/Vol] 0.32 10*3/uL Low 0.83-4.51 [facility] Anion gap in Serum or Plasma Ordered By: Chey Kearney on 08-12-2024 Anion gap [Moles/Vol] 13 mmol/L 5-15 [facility] Automated lymphocyte count a s percentage of total leukocytesOrdered By: Chey Kearney on 08-12-2024 Lymphocytes/100 WBC Auto (Unsp spec) 3.8 % Low 19-41 [facility] BUN/creatinine ratioOrdered By: Chey Kearney on 08-12-2024 Urea nitrogen/Creatinine [Mass ratio] 20.7 mg/mg High 10-20 [facility] Basophil percentageOrdered B y: Chey Kearney on 08-12-2024 Basophils/100 WBC (Bld) 0.6 % 0-1 [facility] Carbon dioxide, total [Moles /volume] in Central venous bloodOrdered By: Chey Kearney on 08-12-2024 CO2 [Moles/Vol] 27.9 mmol/L 21.0-32.0 [facility] Chloride assayOrdered By: Shnaa Kearney on 08-12-2024 Chloride [Moles/Vol] 101 mmol/L 98-108 [facility] Eosinophil percentageOrdered By: Chey Kearney on 08-12-2024 Eosinophils/100 WBC (Bld) 1.3 % 0-5 [facility] Erythrocyte distribution wid th ratioOrdered By: Chey Kearney on 08-12-2024 Erythrocyte distribution width (RBC) [Ratio] 16.0 % High 11.6-14.6 [facility] Erythrocyte distribution wid th standard deviationOrdered By: Chey Kearney on 08-12-2024 Erythrocyte distribution width (RBC) [Ratio] 48.4 fl High 35.1-43.9 [facility] Glomerular filtration rate ( GFR) estimation/1.73 sq m using serum, plasma, or whole bOrdered By: Chey Kearney on 08-12-2024 GFR/1.73 sq M.predicted among non-blacks MDRD (S/P/Bld) [Vol rate/Area] 38 mL/min/{1.73_m2} Low >60 [facility] Glucose [facility] deOrdered By: Chey Kearney on 08-12-2024 Glucose [Mass/Vol] 191 mg/dL High 74-106 [facility] Hematocrit Auto (Bld) [Volum e fraction]Ordered By: Chey Kearney on 08-12-2024 Hematocrit (Bld) [Volume fraction] 32.2 % Low 40-54 [facility] Hemoglobin measurementOrdere d By: Chey Kearney on 08-12-2024 Hemoglobin (Bld) [Mass/Vol] 9.9 g/dL Low 13.0-16.5 [facility] Immature granulocytes/100 WB C Auto (Bld)Ordered By: Chey Kearney on 08-12-2024 Immature granulocytes/100 WBC (Bld) 0.800 % 0.0-0.9 [facility] MCV (mean corpuscular volume ) determinationOrdered By: Chey Kearney 08-12-2024 MCV (RBC) [Entitic vol] 83.2 fL 80-94 [facility] Mean corpuscular hemoglobin (MCH) determinationOrdered By: Chey Kearney on 08-12-2024 MCH (RBC) [Entitic mass] 25.6 pg Low 27.0-32.0 [facility] Monocyte percentageOrdered B y: Chey Kearney on 08-12-2024 Monocytes/100 WBC (Bld) 10.9 % High 0-10 [facility] Neutrophil percentageOrdered By: Chey Kearney 08-12-2024 Neutrophils/100 WBC (Bld) 82.6 % High 47-70 [facility] Platelet countOrdered By: Shana Kearney on 08-12-2024 Platelets (Bld) [#/Vol] 272 10*3/uL 150-450 [facility] Potassium measurement (mass/ volume)Ordered By: Chey Kearney on 08-12-2024 Potassium (Unsp spec) [Mass/Vol] 3.5 mmol/L 3.3-5.1 [facility] RBC Auto (Bld) [#/Vol]Ordere d By: Chey Kearney on 08-12-2024 RBC (Bld) [#/Vol] 3.87 10*6/uL Low 4.6-6.2 [facility] Serum creatinine measurement (mass/volume)Ordered By: Chey Kearney on 08-12-2024 Creatinine [Mass/Vol] 1.91 mg/dL High 0.70-1.20 [facility] Serum glucose measurement (m ass/volume)Ordered By: Chey Kearney on 08-12-2024 Glucose [Mass/Vol] 52 mg/dL Low 70-99 [facility] Serum or plasma calcium bernabe urement (mass/volume)Ordered By: Chey Kearney on 08-12-2024 Calcium [Mass/Vol] 10.2 mg/dL 7.6-11.0 [facility] Serum or plasma urea nitroge n measurement (mass/volume)Ordered By: Chey Kearney on 08-12-2024 Urea nitrogen [Mass/Vol] 40 mg/dL High 4-19 [facility] Sodium levelOrdered By: Chey Kearney on 08-12-2024 Sodium [Moles/Vol] 142 mmol/L 133-145 [facility] White blood cell (WBC) count Ordered By: Chey Kearney on 08-12-2024 WBC (Bld) [#/Vol] 8.4 10*3/uL 4.4-11.0 [facility] Natriuretic peptide.B prohor armida N-Terminal [Mass/volume] in Serum or PlasmaOrdered By: Liliya Denney on 08-09-2024 Natriuretic peptide.B prohormone N-Terminal [Mass/Vol] 5387 pg/mL High <900 [facility] Troponin T.cardiac [Mass/vol ume] in Serum or Plasma by High sensitivity methodOrdered By: Liliya Denney on 08-09-2024 Troponin T.cardiac High sensitivity method [Mass/Vol] 118 ng/L High <22 [facility] Troponin T.cardiac High sensitivity method [Mass/Vol] 122 ng/L High <22 [facility] Troponin T.cardiac High sensitivity method [Mass/Vol] 123 ng/L High <22 [facility] No Panel Informationon 04-25 9.1 % High 4.2-6.3 [facility] Absolute lymphocyte countOrd ered By: Darian Vargas on 08-11-2023 Lymphocytes Auto (Unsp spec) [#/Vol] 0.29 10*3/uL 0.83-4.51 [facility] Automated lymphocyte count a s percentage of total leukocytesOrdered By: Darian Vargas on 08-11-2023 Lymphocytes/100 WBC Auto (Unsp spec) 2.6 % 19-41 [facility] Basophil percentageOrdered B y: Darian Vargas on 08-11-2023 Basophil percentage 0-5 SEEN /hpf 0-5 [facility] Basophil percentage 9.5 g/dL 13.0-16.5 [facility] Basophil percentage 244 mg/dL 74-106 [facility] Basophil percentage 7.0 g/dL 6.4-8.2 [facility] Basophil percentage 0.70 mg/dL 0.20-1.00 [facility] Basophil percentage 136 mmol/L 136-145 [facility] Basophil percentage 3.7 mmol/L 3.5-5.1 [facility] Basophil percentage 102 mmol/L 98-107 [facility] Basophil percentage 1.5 mmol/L 0.4-2.0 [facility] Basophils (Bld) [#/Vol] 11.2 10*3/uL 4.4-11.0 [facility] Basophils (Bld) [#/Vol] 9.1 10*3/uL 2.0-7.7 [facility] Basophils/100 WBC (Bld) 81.6 % 47-70 [facility] Basophils/100 WBC (Bld) 14.0 % 0-10 [facility] Basophils/100 WBC (Bld) 0.6 % 0-5 [facility] Basophils/100 WBC (Bld) 0.4 % 0-1 [facility] Bilirubin Test strip Ql (U)O rdered By: Darian Vargas on 08-11-2023 Bilirubin Ql (U) Negative Negative [facility] Blood manual differential co mment interpretation (narrative result)Ordered By: Darian Vargas on 08-11-2023 Manual differential comment Jagdeep (Bld) [Interp] SEE COMMENTS [facility] Blood platelet adequacy dete ction by light microscopyOrdered By: Darian Vargas on 08-11-2023 Platelets LM Ql (Bld) ADEQUATE ADEQ [facility] Determination of erythrocyte mean corpuscular volume (MCV)Ordered By: Darian Vargas on 08-11-2023 MCV (RBC) [Entitic vol] 85.9 fL 80-94 [facility] Erythrocyte distribution wid th ratioOrdered By: Darian Vargas on 08-11-2023 Erythrocyte distribution width (RBC) [Ratio] 17.1 % 11.6-14.6 [facility] Erythrocyte distribution wid th standard deviationOrdered By: Darian Vargas on 08-11-2023 Erythrocyte distribution width (RBC) [Entitic vol] 53.7 fL 35.1-43.9 [facility] Hematocrit Auto (Bld) [Volum e fraction]Ordered By: Darian Vargas on 08-11-2023 Hematocrit (Bld) [Volume fraction] 31.6 % 40-54 [facility] Hypochromatic red blood cell detectionOrdered By: Darian Vargas on 08-11-2023 Hypochromia Ql (Bld) RARE [facility] Immature granulocytes/100 WB C Auto (Bld)Ordered By: Darian Vargas on 08-11-2023 Immature granulocytes/100 WBC (Bld) 0.800 % 0.0-0.9 [facility] Ketones Test strip Ql (U)Ord ered By: Darian Vargas on 08-11-2023 Ketones Ql (U) Negative Negative [facility] Mucus LM Ql (Urine sed)Order ed By: Darian Vargas on 08-11-2023 Mucus Ql (Urine sed) 0 SEEN /hpf [facility] Nitrite Test strip Ql (U)Ord ered By: Darian Vargas on 08-11-2023 Nitrite Ql (U) Negative Negative [facility] No Panel InformationOrdered By: Darian Vargas on 08-11-2023 0 SEEN /hpf 0-5 [facility] 25.8 pg 27.0-32.0 [facility] 30.1 g/dL 32-36 [facility] 305 K/mm3 150-450 [facility] 10.0 fl 6.2-12.0 [facility] 0 % 0-5 [facility] RARE [facility] 32 mL/min >60 [facility] 39 mL/min >60 [facility] 42.43 ml/min [facility] 25.2 RATIO 10-20 [facility] 3.7 g/dL 2.2-4.2 [facility] 0.9 RATIO 0.9-2.4 [facility] 27 pg/mL 3.0-78.0 [facility] 60 U/L 45-117 [facility] 31 U/L 16-61 [facility] 27.0 mmol/L 21.0-32.0 [facility] 305.5 pg/mL 0-100 [facility] Ovalocyte detectionOrdered B y: Darian Vargas on 08-11-2023 Ovalocytes LM Ql (Bld) RARE [facility] Protein Test strip Ql (U)Ord ered By: Darian Vargas on 08-11-2023 Protein Ql (U) 30 mg/dl Negative [facility] RBC Auto (Bld) [#/Vol]Ordere d By: Darian Vargas on 08-11-2023 RBC (Bld) [#/Vol] 3.68 10*6/uL 4.6-6.2 [facility] RBC morphologyOrdered By: Jaswant Vargas on 08-11-2023 RBC morphology finding Nom (Bld) NORM C+C NORMAL NORM C&C [facility] Review by pathologistOrdered By: Darian Vargas on 08-11-2023 Pathologist review Jagdeep (Unsp spec) [Interp] August [facility] Serum or plasma calcium bernabe urement (mass/volume)Ordered By: Darian Vargas on 08-11-2023 Calcium [Mass/Vol] 10.1 mg/dL 8.5-10.1 [facility] Serum or plasma creatinine m easurement (mass/volume)Ordered By: Darian Vargas on 08-11-2023 Creatinine [Mass/Vol] 2.18 mg/dL 0.70-1.30 [facility] Serum or plasma urea nitroge n measurement (mass/volume)Ordered By: Darian Vargas on 08-11-2023 Urea nitrogen [Mass/Vol] 55 mg/dL 7-18 [facility] Squamous epithelial cells de tection in urine sediment by light microscopyOrdered By: Darian Vargas on 08-11-2023 Epithelial cells.squamous LM Ql (Urine sed) 0 SEEN /hpf 0-5 [facility] Thin prep Papanicolaou smear with manual screeningOrdered By: Darian Vargas on 08-11-2023 Thin prep Papanicolaou smear with manual screening 3.3 g/dL 3.2-5.0 [facility] Thin prep Papanicolaou smear with manual screening 17 U/L 15-37 [facility] Thin prep Papanicolaou smear with manual screening 7 5-15 [facility] Urine blood detectionOrdered By: Darian Vargas on 08-11-2023 RBC Ql (U) Negative Negative [facility] Urine clarityOrdered By: Homa Vargas on 08-11-2023 Clarity (U) Clear Clear [facility] Urine color determinationOrd ered By: Darian Vargas on 08-11-2023 Color (U) Yellow Yellow [facility] Urine glucose detectionOrder ed By: Darian Vargas on 08-11-2023 Glucose Ql (U) 100 mg/dl Normal [facility] Urine leukocyte esterase det ection by dipstickOrdered By: Darian Vargas on 08-11-2023 Leukocyte esterase Test strip Ql (U) Negative Negative [facility] Urine pHOrdered By: Darian qureshi on 08-11-2023 pH (U) 6.0 [pH] 5.0 - 8.0 [facility] Urine sediment bacteria coun t by microscopy (number/high power field)Ordered By: Darian Vargas on 08-11-2023 Bacteria LM.HPF (Urine sed) [#/Area] 0 /[HPF] None Seen [facility] Urine specific gravity measu rementOrdered By: Darian Vargas on 08-11-2023 Specific gravity (U) [Rel density] 1.015 1.002-1.03 0 [facility] Urine urobilinogen measureme ntOrdered By: Darian Vargas on 08-11-2023 Urobilinogen Ql (U) Normal mg/dl Normal [facility] Basophil percentageOrdered B y: Tunde Miller on 07-31-2023 Basophil percentage 125 mg/dL 74-106 [facility] Basophil percentage 138 mmol/L 136-145 [facility] Basophil percentage 3.7 mmol/L 3.5-5.1 [facility] Basophil percentage 105 mmol/L 98-107 [facility] No Panel InformationOrdered By: Tunde Miller on 07-31-2023 40 mL/min >60 [facility] 48 mL/min >60 [facility] 48.50 ml/min [facility] 20.3 RATIO 10-20 [facility] 28.0 mmol/L 21.0-32.0 [facility] Serum or plasma calcium bernabe urement (mass/volume)Ordered By: Tunde Miller on 07-31-2023 Calcium [Mass/Vol] 10.1 mg/dL 8.5-10.1 [facility] Serum or plasma creatinine m easurement (mass/volume)Ordered By: Tunde Miller on 07-31-2023 Creatinine [Mass/Vol] 1.82 mg/dL 0.70-1.30 [facility] Serum or plasma urea nitroge n measurement (mass/volume)Ordered By: Tunde Miller on 07-31-2023 Urea nitrogen [Mass/Vol] 37 mg/dL 7-18 [facility] Thin prep Papanicolaou smear with manual screeningOrdered By: Tunde Miller on 07-31-2023 Thin prep Papanicolaou smear with manual screening 177 mg/dL 74-106 [facility] Thin prep Papanicolaou smear with manual screening 5 5-15 [facility] Iron measurement (mass/mass) Ordered By: Tunde Miller on 07-30-2023 Iron (Unsp spec) [Mass/Mass] 46 ug/dL 65-175 [facility] No Panel InformationOrdered By: Tunde Miller on 07-30-2023 427 ug/dL 250-450 [facility] 85 ng/mL 26-388 [facility] Serum or plasma iron saturat ion measurement (mass fraction)Ordered By: Tunde Miller on 07-30-2023 Iron saturation [Mass fraction] 10.8 % 15.0-55.0 [facility] Absolute lymphocyte countOrd ered By: Narendra Schwartz on 07-29-2023 Lymphocytes Auto (Unsp spec) [#/Vol] 0.41 10*3/uL 0.83-4.51 [facility] Automated lymphocyte count a s percentage of total leukocytesOrdered By: Narendra Schwartz on 07-29-2023 Lymphocytes/100 WBC Auto (Unsp spec) 4.9 % 19-41 [facility] Basophil percentageOrdered B y: Narendra Schwartz on 07-29-2023 Basophil percentage 10.0 g/dL 13.0-16.5 [facility] Basophils (Bld) [#/Vol] 8.3 10*3/uL 4.4-11.0 [facility] Basophils (Bld) [#/Vol] 7.0 10*3/uL 2.0-7.7 [facility] Basophils/100 WBC (Bld) 84.2 % 47-70 [facility] Basophils/100 WBC (Bld) 7.9 % 0-10 [facility] Basophils/100 WBC (Bld) 2.0 % 0-5 [facility] Basophils/100 WBC (Bld) 0.4 % 0-1 [facility] Determination of erythrocyte mean corpuscular volume (MCV)Ordered By: Narendra Schwartz on 07-29-2023 MCV (RBC) [Entitic vol] 85.9 fL 80-94 [facility] Erythrocyte distribution wid th ratioOrdered By: Narendra Schwartz on 07-29-2023 Erythrocyte distribution width (RBC) [Ratio] 18.4 % 11.6-14.6 [facility] Erythrocyte distribution wid th standard deviationOrdered By: Narendra Schwartz on 07-29-2023 Erythrocyte distribution width (RBC) [Entitic vol] 55.9 fL 35.1-43.9 [facility] Hematocrit Auto (Bld) [Volum e fraction]Ordered By: Narendra Schwartz on 07-29-2023 Hematocrit (Bld) [Volume fraction] 32.4 % 40-54 [facility] Immature granulocytes/100 WB C Auto (Bld)Ordered By: Narendra Schwartz on 07-29-2023 Immature granulocytes/100 WBC (Bld) 0.600 % 0.0-0.9 [facility] No Panel InformationOrdered By: Narendra Schwartz on 07-29-2023 26.5 pg 27.0-32.0 [facility] 30.9 g/dL 32-36 [facility] 299 K/mm3 150-450 [facility] 9.1 fl 6.2-12.0 [facility] 0 % 0-5 [facility] RBC Auto (Bld) [#/Vol]Ordere d By: Narendra Schwartz on 07-29-2023 RBC (Bld) [#/Vol] 3.77 10*6/uL 4.6-6.2 [facility] Absolute lymphocyte countOrd ered By: Harinder Woods on 07-28-2023 Lymphocytes Auto (Unsp spec) [#/Vol] 0.31 10*3/uL 0.83-4.51 [facility] Activated partial thrombopla stin time (aPTT) in platelet poor plasma by coagulation aOrdered By: Harinder Woods on 07-28-2023 aPTT Coag (PPP) [Time] 27.7 s 24.1-36.2 [facility] Assessment of wrist artery p atency prior to arterial punctureOrdered By: Harinder Woods on 07-28-2023 Arterial patency Wrist artery --pre arterial puncture Positive [facility] Automated lymphocyte count a s percentage of total leukocytesOrdered By: Harinder Woods on 07-28-2023 Lymphocytes/100 WBC Auto (Unsp spec) 3.5 % 19-41 [facility] Base excessOrdered By: Adriel Woods on 07-28-2023 Base excess Calc (BldV) [Moles/Vol] -2 mmol/L -2-2 [facility] Basophil percentageOrdered B y: Harinder Woods on 07-28-2023 Basophil percentage 10.1 g/dL 13.0-16.5 [facility] Basophil percentage 211 mg/dL 74-106 [facility] Basophil percentage 7.4 g/dL 6.4-8.2 [facility] Basophil percentage 0.80 mg/dL 0.20-1.00 [facility] Basophil percentage 141 mmol/L 136-145 [facility] Basophil percentage 3.9 mmol/L 3.5-5.1 [facility] Basophil percentage 109 mmol/L 98-107 [facility] Basophils (Bld) [#/Vol] 8.8 10*3/uL 4.4-11.0 [facility] Basophils (Bld) [#/Vol] 7.7 10*3/uL 2.0-7.7 [facility] Basophils/100 WBC (Bld) 87.3 % 47-70 [facility] Basophils/100 WBC (Bld) 6.6 % 0-10 [facility] Basophils/100 WBC (Bld) 1.0 % 0-5 [facility] Basophils/100 WBC (Bld) 0.6 % 0-1 [facility] Basophil percentage 25 mmol/L [facility] Basophils/100 WBC (Bld) 79 % 95-99 [facility] Blood manual differential co mment interpretation (narrative result)Ordered By: Harnider Woods on 07-28-2023 Manual differential comment Jagdeep (Bld) [Interp] SEE COMMENT [facility] Blood platelet adequacy dete ction by light microscopyOrdered By: Harinder Woods on 07-28-2023 Platelets LM Ql (Bld) ADEQUATE ADEQ [facility] Determination of erythrocyte mean corpuscular volume (MCV)Ordered By: Harinder Woods on 07-28-2023 MCV (RBC) [Entitic vol] 87.6 fL 80-94 [facility] Direct bilirubinOrdered By: Harinder Woods on 07-28-2023 Bilirubin.direct [Mass/Vol] 0.43 mg/dL 0.00-0.30 [facility] Erythrocyte distribution wid th ratioOrdered By: Harinder Woods on 07-28-2023 Erythrocyte distribution width (RBC) [Ratio] 18.5 % 11.6-14.6 [facility] Erythrocyte distribution wid th standard deviationOrdered By: Harinder Woods on 07-28-2023 Erythrocyte distribution width (RBC) [Entitic vol] 57.8 fL 35.1-43.9 [facility] Hematocrit Auto (Bld) [Volum e fraction]Ordered By: Harinder Woods on 07-28-2023 Hematocrit (Bld) [Volume fraction] 33.3 % 40-54 [facility] Immature granulocytes/100 WB C Auto (Bld)Ordered By: Harinder Woods on 07-28-2023 Immature granulocytes/100 WBC (Bld) 1.000 % 0.0-0.9 [facility] Measurement, pHOrdered By: Say Woods on 07-28-2023 pH (Unsp spec) 7.33 [pH] 7.35-7.45 [facility] No Panel InformationOrdered By: Harinder Woods on 07-28-2023 26.6 pg 27.0-32.0 [facility] 30.3 g/dL 32-36 [facility] 311 K/mm3 150-450 [facility] 9.2 fl 6.2-12.0 [facility] 0 % 0-5 [facility] RARE [facility] 16.2 SECONDS 11.7-14.9 [facility] 1.3 [facility] 37 mL/min >60 [facility] 44 mL/min >60 [facility] 47.04 ml/min [facility] 22.1 RATIO 10-20 [facility] 4.0 g/dL 2.2-4.2 [facility] 28 pg/mL 3.0-78.0 [facility] 68 U/L 45-117 [facility] 25 U/L 16-61 [facility] 25.0 mmol/L 21.0-32.0 [facility] 388.4 pg/mL 0-100 [facility] ART [facility] R Radial [facility] BiLevel [facility] BiPAP [facility] 12 [facility] 50.0 [facility] 17/13 [facility] 45.4 mmHg 35-45 [facility] 47 mmHG 75-100 [facility] 24.0 mmol/L 22-26 [facility] RBC Auto (Bld) [#/Vol]Ordere d By: Harinder Woods on 07-28-2023 RBC (Bld) [#/Vol] 3.80 10*6/uL 4.6-6.2 [facility] RBC morphologyOrdered By: Narciso Woods on 07-28-2023 RBC morphology finding Nom (Bld) N CHROM NORMAL NORM C&C [facility] Serum or plasma calcium bernabe urement (mass/volume)Ordered By: Harinder Woods on 07-28-2023 Calcium [Mass/Vol] 10.1 mg/dL 8.5-10.1 [facility] Serum or plasma creatinine m easurement (mass/volume)Ordered By: Harinder Woods on 07-28-2023 Creatinine [Mass/Vol] 1.95 mg/dL 0.70-1.30 [facility] Serum or plasma urea nitroge n measurement (mass/volume)Ordered By: Harinder Woods on 07-28-2023 Urea nitrogen [Mass/Vol] 43 mg/dL 7-18 [facility] Thin prep Papanicolaou smear with manual screeningOrdered By: Harinder Woods on 07-28-2023 Thin prep Papanicolaou smear with manual screening 3.4 g/dL 3.2-5.0 [facility] Thin prep Papanicolaou smear with manual screening 16 U/L 15-37 [facility] Thin prep Papanicolaou smear with manual screening 7 5-15 [facility] Absolute lymphocyte countOrd ered By: Reedmayela Wolf on 07-20-2023 Lymphocytes Auto (Unsp spec) [#/Vol] 0.44 10*3/uL 0.83-4.51 [facility] Automated lymphocyte count a s percentage of total leukocytesOrdered By: Reedmayela Wolf on 07-20-2023 Lymphocytes/100 WBC Auto (Unsp spec) 4.5 % 19-41 [facility] Basophil percentageOrdered B y: Reed Wolf on 07-20-2023 Basophil percentage 10.0 g/dL 13.0-16.5 [facility] Basophil percentage 135 mg/dL 74-106 [facility] Basophil percentage 139 mmol/L 136-145 [facility] Basophil percentage 3.2 mmol/L 3.5-5.1 [facility] Basophil percentage 108 mmol/L 98-107 [facility] Basophils (Bld) [#/Vol] 9.7 10*3/uL 4.4-11.0 [facility] Basophils (Bld) [#/Vol] 8.0 10*3/uL 2.0-7.7 [facility] Basophils/100 WBC (Bld) 82.6 % 47-70 [facility] Basophils/100 WBC (Bld) 9.8 % 0-10 [facility] Basophils/100 WBC (Bld) 1.8 % 0-5 [facility] Basophils/100 WBC (Bld) 0.5 % 0-1 [facility] Blood manual differential co mment interpretation (narrative result)Ordered By: Reed Wolf on 07-20-2023 Manual differential comment Jagdeep (Bld) [Interp] SEE COMMENT [facility] Blood platelet adequacy dete ction by light microscopyOrdered By: Reedmayela Wolf on 07-20-2023 Platelets LM Ql (Bld) ADEQUATE ADEQ [facility] Determination of erythrocyte mean corpuscular volume (MCV)Ordered By: Reed Wolf on 07-20-2023 MCV (RBC) [Entitic vol] 83.8 fL 80-94 [facility] Erythrocyte distribution wid th ratioOrdered By: Reedmayela Wolf on 07-20-2023 Erythrocyte distribution width (RBC) [Ratio] 16.7 % 11.6-14.6 [facility] Erythrocyte distribution wid th standard deviationOrdered By: Reedmayela Wolf on 07-20-2023 Erythrocyte distribution width (RBC) [Entitic vol] 50.4 fL 35.1-43.9 [facility] Hematocrit Auto (Bld) [Volum e fraction]Ordered By: Reedmayela Wolf on 07-20-2023 Hematocrit (Bld) [Volume fraction] 32.5 % 40-54 [facility] Immature granulocytes/100 WB C Auto (Bld)Ordered By: Reedmayela Wolf on 07-20-2023 Immature granulocytes/100 WBC (Bld) 0.800 % 0.0-0.9 [facility] No Panel InformationOrdered By: Reed Wolf on 07-20-2023 25.8 pg 27.0-32.0 [facility] 30.8 g/dL 32-36 [facility] 290 K/mm3 150-450 [facility] 9.5 fl 6.2-12.0 [facility] 0 % 0-5 [facility] RARE [facility] 38 mL/min >60 [facility] 46 mL/min >60 [facility] 28.4 RATIO 10-20 [facility] 25.0 mmol/L 21.0-32.0 [facility] RBC Auto (Bld) [#/Vol]Ordere d By: Reed Wolf on 07-20-2023 RBC (Bld) [#/Vol] 3.88 10*6/uL 4.6-6.2 [facility] RBC morphologyOrdered By: Irlanda Wolf on 07-20-2023 RBC morphology finding Nom (Bld) NORM C+C NORMAL NORM C&C [facility] Serum or plasma calcium bernabe urement (mass/volume)Ordered By: Reed Wolf on 07-20-2023 Calcium [Mass/Vol] 9.7 mg/dL 8.5-10.1 [facility] Serum or plasma creatinine m easurement (mass/volume)Ordered By: Reed Wolf on 07-20-2023 Creatinine [Mass/Vol] 1.90 mg/dL 0.70-1.30 [facility] Serum or plasma urea nitroge n measurement (mass/volume)Ordered By: Reed Wolf on 07-20-2023 Urea nitrogen [Mass/Vol] 54 mg/dL 7-18 [facility] Thin prep Papanicolaou smear with manual screeningOrdered By: Reed Wolf on 07-20-2023 Thin prep Papanicolaou smear with manual screening 6 5-15 [facility] Thin prep Papanicolaou smear with manual screeningOrdered By: Louie Gonzales on 07-13-2023 Thin prep Papanicolaou smear with manual screening 103 mg/dL 74-106 [facility] Absolute lymphocyte countOrd ered By: Maeve Black on 06-20-2023 Lymphocytes Auto (Unsp spec) [#/Vol] 0.38 10*3/uL 0.83-4.51 [facility] Automated lymphocyte count a s percentage of total leukocytesOrdered By: Maeve Black on 06-20-2023 Lymphocytes/100 WBC Auto (Unsp spec) 4.0 % 19-41 [facility] Basophil percentageOrdered B y: Maeve Black on 06-20-2023 Basophil percentage 10.5 g/dL 13.0-16.5 [facility] Basophil percentage 138 mg/dL 74-106 [facility] Basophil percentage 141 mmol/L 136-145 [facility] Basophil percentage 3.4 mmol/L 3.5-5.1 [facility] Basophil percentage 108 mmol/L 98-107 [facility] Basophils (Bld) [#/Vol] 9.5 10*3/uL 4.4-11.0 [facility] Basophils (Bld) [#/Vol] 7.9 10*3/uL 2.0-7.7 [facility] Basophils/100 WBC (Bld) 82.8 % 47-70 [facility] Basophils/100 WBC (Bld) 11.0 % 0-10 [facility] Basophils/100 WBC (Bld) 1.1 % 0-5 [facility] Basophils/100 WBC (Bld) 0.5 % 0-1 [facility] Determination of erythrocyte mean corpuscular volume (MCV)Ordered By: Maeve Black on 06-20-2023 MCV (RBC) [Entitic vol] 84.7 fL 80-94 [facility] Erythrocyte distribution wid th ratioOrdered By: Maeve Black on 06-20-2023 Erythrocyte distribution width (RBC) [Ratio] 16.2 % 11.6-14.6 [facility] Erythrocyte distribution wid th standard deviationOrdered By: Maeve Black on 06-20-2023 Erythrocyte distribution width (RBC) [Entitic vol] 50.1 fL 35.1-43.9 [facility] Hematocrit Auto (Bld) [Volum e fraction]Ordered By: Maeve Black on 06-20-2023 Hematocrit (Bld) [Volume fraction] 34.3 % 40-54 [facility] Immature granulocytes/100 WB C Auto (Bld)Ordered By: Maeve Black on 06-20-2023 Immature granulocytes/100 WBC (Bld) 0.600 % 0.0-0.9 [facility] No Panel InformationOrdered By: Maeve Black on 06-20-2023 25.9 pg 27.0-32.0 [facility] 30.6 g/dL 32-36 [facility] 313 K/mm3 150-450 [facility] 9.4 fl 6.2-12.0 [facility] 0 % 0-5 [facility] 38 mL/min >60 [facility] 46 mL/min >60 [facility] 47.42 ml/min [facility] 13.8 RATIO 10-20 [facility] 27.0 mmol/L 21.0-32.0 [facility] 467.9 pg/mL 0-100 [facility] RBC Auto (Bld) [#/Vol]Ordere d By: Maeve Black on 06-20-2023 RBC (Bld) [#/Vol] 4.05 10*6/uL 4.6-6.2 [facility] Serum or plasma calcium bernabe urement (mass/volume)Ordered By: Maeve Black on 06-20-2023 Calcium [Mass/Vol] 10.6 mg/dL 8.5-10.1 [facility] Serum or plasma creatinine m easurement (mass/volume)Ordered By: Maeve Black on 06-20-2023 Creatinine [Mass/Vol] 1.89 mg/dL 0.70-1.30 [facility] Serum or plasma urea nitroge n measurement (mass/volume)Ordered By: Maeve Black on 06-20-2023 Urea nitrogen [Mass/Vol] 26 mg/dL 7-18 [facility] Thin prep Papanicolaou smear with manual screeningOrdered By: Maeve Black on 06-20-2023 Thin prep Papanicolaou smear with manual screening 6 5-15 [facility] Basophil percentageOrdered B y: Stephanie Schultz on 06-12-2023 Basophil percentage 0-5 SEEN /hpf 0-5 [facility] Bilirubin Test strip Ql (U)O rdered By: Stephanie Schultz on 06-12-2023 Bilirubin Ql (U) Negative Negative [facility] Ketones Test strip Ql (U)Ord ered By: Stephanie Schultz on 06-12-2023 Ketones Ql (U) Negative Negative [facility] Mucus LM Ql (Urine sed)Order ed By: Stephanie Schultz on 06-12-2023 Mucus Ql (Urine sed) 0 SEEN /hpf [facility] Nitrite Test strip Ql (U)Ord ered By: Stephanie Schultz on 06-12-2023 Nitrite Ql (U) Negative Negative [facility] No Panel InformationOrdered By: Stephanie Schultz on 06-12-2023 0 SEEN /hpf 0-5 [facility] No Panel InformationOrdered By: Robb Hua on 06-12-2023 14.2 SECONDS 11.7-14.9 [facility] 1.1 [facility] Protein Test strip Ql (U)Ord ered By: Stephanie Schultz on 06-12-2023 Protein Ql (U) 100 mg/dl Negative [facility] Squamous epithelial cells de tection in urine sediment by light microscopyOrdered By: Stephanie Schultz on 06-12-2023 Epithelial cells.squamous LM Ql (Urine sed) 0 SEEN /hpf 0-5 [facility] Urine blood detectionOrdered By: Stephanie Schultz on 06-12-2023 RBC Ql (U) 10 /ul Negative [facility] Urine clarityOrdered By: Benton Schultz on 06-12-2023 Clarity (U) Clear Clear [facility] Urine color determinationOrd ered By: Stephanie Schultz on 06-12-2023 Color (U) Yellow Yellow [facility] Urine glucose detectionOrder ed By: Stephanie Schultz on 06-12-2023 Glucose Ql (U) 50 mg/dl Normal [facility] Urine leukocyte esterase det ection by dipstickOrdered By: Stephanie Schultz on 06-12-2023 Leukocyte esterase Test strip Ql (U) 100 /ul Negative [facility] Urine pHOrdered By: Stephanie Schultz on 06-12-2023 pH (U) 6.0 [pH] 5.0 - 8.0 [facility] Urine sediment bacteria coun t by microscopy (number/high power field)Ordered By: Stephanie Schultz on 06-12-2023 Bacteria LM.HPF (Urine sed) [#/Area] 0 /[HPF] None Seen [facility] Urine specific gravity measu rementOrdered By: Stephanie Schultz on 06-12-2023 Specific gravity (U) [Rel density] 1.015 1.002-1.03 0 [facility] Urine urobilinogen measureme ntOrdered By: Stephanie Schultz on 06-12-2023 Urobilinogen Ql (U) 1 mg/dl Normal [facility] Absolute lymphocyte countOrd ered By: Cornelia Burns on 06-08-2023 Lymphocytes Auto (Unsp spec) [#/Vol] 0.39 10*3/uL 0.83-4.51 [facility] Automated lymphocyte count a s percentage of total leukocytesOrdered By: Cornelia Burns on 06-08-2023 Lymphocytes/100 WBC Auto (Unsp spec) 5.1 % 19-41 [facility] Basophil percentageOrdered B y: Cornelia Burns on 06-08-2023 Basophil percentage 10.3 g/dL 13.0-16.5 [facility] Basophil percentage 171 mg/dL 74-106 [facility] Basophil percentage 6.6 g/dL 6.4-8.2 [facility] Basophil percentage 2.3 mg/dL 2.5-4.9 [facility] Basophil percentage 1.20 mg/dL 0.20-1.00 [facility] Basophil percentage 137 mmol/L 136-145 [facility] Basophil percentage 3.3 mmol/L 3.5-5.1 [facility] Basophil percentage 108 mmol/L 98-107 [facility] Basophils (Bld) [#/Vol] 7.6 10*3/uL 4.4-11.0 [facility] Basophils (Bld) [#/Vol] 5.9 10*3/uL 2.0-7.7 [facility] Basophils/100 WBC (Bld) 77.0 % 47-70 [facility] Basophils/100 WBC (Bld) 15.8 % 0-10 [facility] Basophils/100 WBC (Bld) 1.1 % 0-5 [facility] Basophils/100 WBC (Bld) 0.5 % 0-1 [facility] Blood manual differential co mment interpretation (narrative result)Ordered By: Cornelia Burns on 06-08-2023 Manual differential comment Jagdeep (Bld) [Interp] SCANNED [facility] Determination of erythrocyte mean corpuscular volume (MCV)Ordered By: Cornelia Burns on 06-08-2023 MCV (RBC) [Entitic vol] 85.3 fL 80-94 [facility] Erythrocyte distribution wid th ratioOrdered By: Cornelia Burns on 06-08-2023 Erythrocyte distribution width (RBC) [Ratio] 16.5 % 11.6-14.6 [facility] Erythrocyte distribution wid th standard deviationOrdered By: Cornelia Burns on 06-08-2023 Erythrocyte distribution width (RBC) [Entitic vol] 51.9 fL 35.1-43.9 [facility] Hematocrit Auto (Bld) [Volum e fraction]Ordered By: Cornelia Burns on 06-08-2023 Hematocrit (Bld) [Volume fraction] 33.7 % 40-54 [facility] Immature granulocytes/100 WB C Auto (Bld)Ordered By: Cornelia Burns on 06-08-2023 Immature granulocytes/100 WBC (Bld) 0.500 % 0.0-0.9 [facility] No Panel InformationOrdered By: Cornelia Burns on 06-08-2023 26.1 pg 27.0-32.0 [facility] 30.6 g/dL 32-36 [facility] 256 K/mm3 150-450 [facility] 9.7 fl 6.2-12.0 [facility] 0 % 0-5 [facility] 40 mL/min >60 [facility] 49 mL/min >60 [facility] 49.65 ml/min [facility] 13.9 RATIO 10-20 [facility] 3.4 g/dL 2.2-4.2 [facility] 0.9 RATIO 0.9-2.4 [facility] 59 U/L 45-117 [facility] 19 U/L 16-61 [facility] 1.8 mg/dL 1.6-2.6 [facility] 25.0 mmol/L 21.0-32.0 [facility] RBC Auto (Bld) [#/Vol]Ordere d By: Cornelia Burns on 06-08-2023 RBC (Bld) [#/Vol] 3.95 10*6/uL 4.6-6.2 [facility] Serum or plasma calcium bernabe urement (mass/volume)Ordered By: Cornelia Burns on 06-08-2023 Calcium [Mass/Vol] 10.3 mg/dL 8.5-10.1 [facility] Serum or plasma creatinine m easurement (mass/volume)Ordered By: Cornelia Burns on 06-08-2023 Creatinine [Mass/Vol] 1.80 mg/dL 0.70-1.30 [facility] Serum or plasma urea nitroge n measurement (mass/volume)Ordered By: Cornelia Burns on 06-08-2023 Urea nitrogen [Mass/Vol] 25 mg/dL 7-18 [facility] Thin prep Papanicolaou smear with manual screeningOrdered By: Cornelia Burns on 06-08-2023 Thin prep Papanicolaou smear with manual screening 214 mg/dL 74-106 [facility] Thin prep Papanicolaou smear with manual screening 3.2 g/dL 3.2-5.0 [facility] Thin prep Papanicolaou smear with manual screening 16 U/L 15-37 [facility] Thin prep Papanicolaou smear with manual screening 4 5-15 [facility] Absolute lymphocyte countOrd ered By: Brady Zaidi on 06-07-2023 Lymphocytes Auto (Unsp spec) [#/Vol] 0.43 10*3/uL 0.83-4.51 [facility] Automated lymphocyte count a s percentage of total leukocytesOrdered By: Brady Zaidi on 06-07-2023 Lymphocytes/100 WBC Auto (Unsp spec) 3.7 % 19-41 [facility] Basophil percentageOrdered B y: Brady Zaidi on 06-07-2023 Basophil percentage 10.7 g/dL 13.0-16.5 [facility] Basophil percentage 126 mg/dL 74-106 [facility] Basophil percentage 140 mmol/L 136-145 [facility] Basophil percentage 3.3 mmol/L 3.5-5.1 [facility] Basophil percentage 108 mmol/L 98-107 [facility] Basophils (Bld) [#/Vol] 11.6 10*3/uL 4.4-11.0 [facility] Basophils (Bld) [#/Vol] 9.5 10*3/uL 2.0-7.7 [facility] Basophils/100 WBC (Bld) 81.8 % 47-70 [facility] Basophils/100 WBC (Bld) 12.4 % 0-10 [facility] Basophils/100 WBC (Bld) 1.0 % 0-5 [facility] Basophils/100 WBC (Bld) 0.3 % 0-1 [facility] Determination of erythrocyte mean corpuscular volume (MCV)Ordered By: Brady Zaidi on 06-07-2023 MCV (RBC) [Entitic vol] 86.5 fL 80-94 [facility] Erythrocyte distribution wid th ratioOrdered By: Brady Zaidi on 06-07-2023 Erythrocyte distribution width (RBC) [Ratio] 16.5 % 11.6-14.6 [facility] Erythrocyte distribution wid th standard deviationOrdered By: Brady Zaidi on 06-07-2023 Erythrocyte distribution width (RBC) [Entitic vol] 51.9 fL 35.1-43.9 [facility] Hematocrit Auto (Bld) [Volum e fraction]Ordered By: Brady Zaidi on 06-07-2023 Hematocrit (Bld) [Volume fraction] 35.8 % 40-54 [facility] Immature granulocytes/100 WB C Auto (Bld)Ordered By: Brady Zaidi on 06-07-2023 Immature granulocytes/100 WBC (Bld) 0.800 % 0.0-0.9 [facility] No Panel InformationOrdered By: Brady Zaidi on 06-07-2023 37 pg/mL 3.0-78.0 [facility] 25.8 pg 27.0-32.0 [facility] 29.9 g/dL 32-36 [facility] 275 K/mm3 150-450 [facility] 9.0 fl 6.2-12.0 [facility] 0 % 0-5 [facility] 40 mL/min >60 [facility] 49 mL/min >60 [facility] 48.21 ml/min [facility] 17.2 RATIO 10-20 [facility] 26.0 mmol/L 21.0-32.0 [facility] RBC Auto (Bld) [#/Vol]Ordere d By: Brady Zaidi on 06-07-2023 RBC (Bld) [#/Vol] 4.14 10*6/uL 4.6-6.2 [facility] Serum or plasma calcium bernabe urement (mass/volume)Ordered By: Brady Zaidi on 06-07-2023 Calcium [Mass/Vol] 9.7 mg/dL 8.5-10.1 [facility] Serum or plasma creatinine m easurement (mass/volume)Ordered By: Brady Zaidi on 06-07-2023 Creatinine [Mass/Vol] 1.80 mg/dL 0.70-1.30 [facility] Serum or plasma urea nitroge n measurement (mass/volume)Ordered By: Brady Zaidi on 06-07-2023 Urea nitrogen [Mass/Vol] 31 mg/dL 7-18 [facility] Thin prep Papanicolaou smear with manual screeningOrdered By: Brady Zaidi on 06-07-2023 Thin prep Papanicolaou smear with manual screening 6 5-15 [facility] Absolute lymphocyte countOrd ered By: Brown Curiel on 05-31-2023 Lymphocytes Auto (Unsp spec) [#/Vol] 0.43 10*3/uL 0.83-4.51 [facility] Automated lymphocyte count a s percentage of total leukocytesOrdered By: Brown Curiel on 05-31-2023 Lymphocytes/100 WBC Auto (Unsp spec) 4.5 % 19-41 [facility] Basophil percentageOrdered B y: Brown Curiel on 05-31-2023 Basophil percentage 11.0 g/dL 13.0-16.5 [facility] Basophil percentage 191 mg/dL 74-106 [facility] Basophil percentage 7.2 g/dL 6.4-8.2 [facility] Basophil percentage 0.70 mg/dL 0.20-1.00 [facility] Basophil percentage 142 mmol/L 136-145 [facility] Basophil percentage 3.8 mmol/L 3.5-5.1 [facility] Basophil percentage 111 mmol/L 98-107 [facility] Basophils (Bld) [#/Vol] 9.5 10*3/uL 4.4-11.0 [facility] Basophils (Bld) [#/Vol] 7.9 10*3/uL 2.0-7.7 [facility] Basophils/100 WBC (Bld) 83.5 % 47-70 [facility] Basophils/100 WBC (Bld) 9.4 % 0-10 [facility] Basophils/100 WBC (Bld) 1.7 % 0-5 [facility] Basophils/100 WBC (Bld) 0.4 % 0-1 [facility] Determination of erythrocyte mean corpuscular volume (MCV)Ordered By: Brown Curiel on 05-31-2023 MCV (RBC) [Entitic vol] 87.7 fL 80-94 [facility] Erythrocyte distribution wid th ratioOrdered By: Brown Curiel on 05-31-2023 Erythrocyte distribution width (RBC) [Ratio] 16.8 % 11.6-14.6 [facility] Erythrocyte distribution wid th standard deviationOrdered By: Brown Curiel on 05-31-2023 Erythrocyte distribution width (RBC) [Entitic vol] 53.6 fL 35.1-43.9 [facility] Hematocrit Auto (Bld) [Volum e fraction]Ordered By: Brown Curiel on 05-31-2023 Hematocrit (Bld) [Volume fraction] 36.5 % 40-54 [facility] Immature granulocytes/100 WB C Auto (Bld)Ordered By: Brown Curiel on 05-31-2023 Immature granulocytes/100 WBC (Bld) 0.500 % 0.0-0.9 [facility] No Panel InformationOrdered By: Brown Curiel on 05-31-2023 26.4 pg 27.0-32.0 [facility] 30.1 g/dL 32-36 [facility] 334 K/mm3 150-450 [facility] 10.1 fl 6.2-12.0 [facility] 0 % 0-5 [facility] 38 mL/min >60 [facility] 46 mL/min >60 [facility] 14.3 RATIO 10-20 [facility] 3.5 g/dL 2.2-4.2 [facility] 1.1 RATIO 0.9-2.4 [facility] 67 U/L 45-117 [facility] 27 U/L 16-61 [facility] 27.0 mmol/L 21.0-32.0 [facility] RBC Auto (Bld) [#/Vol]Ordere d By: Brown Curiel on 05-31-2023 RBC (Bld) [#/Vol] 4.16 10*6/uL 4.6-6.2 [facility] Serum or plasma calcium bernabe urement (mass/volume)Ordered By: Brown Curiel on 05-31-2023 Calcium [Mass/Vol] 10.5 mg/dL 8.5-10.1 [facility] Serum or plasma creatinine m easurement (mass/volume)Ordered By: Brown Curiel on 05-31-2023 Creatinine [Mass/Vol] 1.89 mg/dL 0.70-1.30 [facility] Serum or plasma urea nitroge n measurement (mass/volume)Ordered By: Brown Curiel on 05-31-2023 Urea nitrogen [Mass/Vol] 27 mg/dL 7-18 [facility] Thin prep Papanicolaou smear with manual screeningOrdered By: Brown Curiel on 05-31-2023 Thin prep Papanicolaou smear with manual screening 3.7 g/dL 3.2-5.0 [facility] Thin prep Papanicolaou smear with manual screening 17 U/L 15-37 [facility] Thin prep Papanicolaou smear with manual screening 4 5-15 [facility] Whole blood hemoglobin A1c/t otal hemoglobin ratio (mass fraction)Ordered By: Brown Curiel on 05-31-2023 HbA1c (Bld) [Mass fraction] 6.8 % 3.8-5.6 [facility] Absolute lymphocyte countOrd ered By: Kassidy Velez on 04-29-2023 Lymphocytes Auto (Unsp spec) [#/Vol] 0.42 10*3/uL 0.83-4.51 [facility] Automated lymphocyte count a s percentage of total leukocytesOrdered By: Kassidy Velez on 04-29-2023 Lymphocytes/100 WBC Auto (Unsp spec) 4.4 % 19-41 [facility] Basophil percentageOrdered B y: Kassidy Velez on 04-29-2023 Basophil percentage 10.0 g/dL 13.0-16.5 [facility] Basophil percentage 144 mg/dL 74-106 [facility] Basophil percentage 137 mmol/L 136-145 [facility] Basophil percentage 3.3 mmol/L 3.5-5.1 [facility] Basophil percentage 106 mmol/L 98-107 [facility] Basophils (Bld) [#/Vol] 9.5 10*3/uL 4.4-11.0 [facility] Basophils (Bld) [#/Vol] 7.7 10*3/uL 2.0-7.7 [facility] Basophils/100 WBC (Bld) 80.9 % 47-70 [facility] Basophils/100 WBC (Bld) 12.8 % 0-10 [facility] Basophils/100 WBC (Bld) 1.1 % 0-5 [facility] Basophils/100 WBC (Bld) 0.4 % 0-1 [facility] Blood manual differential co mment interpretation (narrative result)Ordered By: Kassidy Velez on 04-29-2023 Manual differential comment Jagdeep (Bld) [Interp] SCANNED [facility] Determination of erythrocyte mean corpuscular volume (MCV)Ordered By: Kassidy Velez on 04-29-2023 MCV (RBC) [Entitic vol] 88.5 fL 80-94 [facility] Erythrocyte distribution wid th ratioOrdered By: Kassidy Velez on 04-29-2023 Erythrocyte distribution width (RBC) [Ratio] 16.0 % 11.6-14.6 [facility] Erythrocyte distribution wid th standard deviationOrdered By: Kassidy Velez on 04-29-2023 Erythrocyte distribution width (RBC) [Entitic vol] 52.2 fL 35.1-43.9 [facility] Hematocrit Auto (Bld) [Volum e fraction]Ordered By: Kassidy Velez on 04-29-2023 Hematocrit (Bld) [Volume fraction] 31.7 % 40-54 [facility] Immature granulocytes/100 WB C Auto (Bld)Ordered By: Kassidy Velez on 04-29-2023 Immature granulocytes/100 WBC (Bld) 0.400 % 0.0-0.9 [facility] No Panel InformationOrdered By: Kassidy Velez on 04-29-2023 27.9 pg 27.0-32.0 [facility] 31.5 g/dL 32-36 [facility] 283 K/mm3 150-450 [facility] 0 % 0-5 [facility] 38 mL/min >60 [facility] 46 mL/min >60 [facility] 46.98 ml/min [facility] 14.7 RATIO 10-20 [facility] 26.0 mmol/L 21.0-32.0 [facility] Platelet mean volume Darvin-Ec ker (Bld) [Entitic vol]Ordered By: Kassidy Velez on 04-29-2023 Platelet mean volume (Bld) [Entitic vol] 9.1 fL 6.2-12.0 [facility] RBC Auto (Bld) [#/Vol]Ordere d By: Kassidy Velez on 04-29-2023 RBC (Bld) [#/Vol] 3.58 10*6/uL 4.6-6.2 [facility] Serum or plasma calcium bernabe urement (mass/volume)Ordered By: Kassidy Velez on 04-29-2023 Calcium [Mass/Vol] 10.4 mg/dL 8.5-10.1 [facility] Serum or plasma creatinine m easurement (mass/volume)Ordered By: Kassidy Velez on 04-29-2023 Creatinine [Mass/Vol] 1.90 mg/dL 0.70-1.30 [facility] Serum or plasma urea nitroge n measurement (mass/volume)Ordered By: Kassidy Velez on 04-29-2023 Urea nitrogen [Mass/Vol] 28 mg/dL 7-18 [facility] Thin prep Papanicolaou smear with manual screeningOrdered By: Kassidy Velez on 04-29-2023 Thin prep Papanicolaou smear with manual screening 164 mg/dL 74-106 [facility] Thin prep Papanicolaou smear with manual screening 5 5-15 [facility] Basophil percentageOrdered B y: Maeve Black on 04-27-2023 Basophil percentage 6.5 g/dL 6.4-8.2 [facility] Basophil percentage 3.3 mg/dL 2.5-4.9 [facility] Basophil percentage 0.60 mg/dL 0.20-1.00 [facility] No Panel InformationOrdered By: Maeve Black on 04-27-2023 3.2 g/dL 2.2-4.2 [facility] 1.0 RATIO 0.9-2.4 [facility] 54 U/L 45-117 [facility] 26 U/L 16-61 [facility] 1.9 mg/dL 1.6-2.6 [facility] Serum or plasma thyroid stim ulating hormone (TSH) measurement (units/volume)Ordered By: Maeve Black on 04-27-2023 TSH Qn 2.65 uIU/mL 0.358-3.74 [facility] Thin prep Papanicolaou smear with manual screeningOrdered By: Maeve Black on 04-27-2023 Thin prep Papanicolaou smear with manual screening 3.3 g/dL 3.2-5.0 [facility] Thin prep Papanicolaou smear with manual screening 25 U/L 15-37 [facility] Absolute lymphocyte countOrd ered By: Jaja Boudreaux on 04-26-2023 Lymphocytes Auto (Unsp spec) [#/Vol] 0.55 10*3/uL 0.83-4.51 [facility] Automated lymphocyte count a s percentage of total leukocytesOrdered By: Jaja Boudreaux on 04-26-2023 Lymphocytes/100 WBC Auto (Unsp spec) 8.1 % 19-41 [facility] Basophil percentageOrdered B y: Jaja Boudreaux on 04-26-2023 Basophil percentage 10.3 g/dL 13.0-16.5 [facility] Basophil percentage 136 mg/dL 74-106 [facility] Basophil percentage 139 mmol/L 136-145 [facility] Basophil percentage 3.7 mmol/L 3.5-5.1 [facility] Basophil percentage 106 mmol/L 98-107 [facility] Basophils (Bld) [#/Vol] 6.8 10*3/uL 4.4-11.0 [facility] Basophils (Bld) [#/Vol] 5.2 10*3/uL 2.0-7.7 [facility] Basophils/100 WBC (Bld) 76.1 % 47-70 [facility] Basophils/100 WBC (Bld) 13.3 % 0-10 [facility] Basophils/100 WBC (Bld) 1.3 % 0-5 [facility] Basophils/100 WBC (Bld) 0.6 % 0-1 [facility] Blood manual differential co mment interpretation (narrative result)Ordered By: Jaja Boudreaux on 04-26-2023 Manual differential comment Jagdeep (Bld) [Interp] SCANNED [facility] Determination of erythrocyte mean corpuscular volume (MCV)Ordered By: Jaja Boudreaux on 04-26-2023 MCV (RBC) [Entitic vol] 87.5 fL 80-94 [facility] Erythrocyte distribution wid th ratioOrdered By: Jaja Boudreaux on 04-26-2023 Erythrocyte distribution width (RBC) [Ratio] 16.4 % 11.6-14.6 [facility] Erythrocyte distribution wid th standard deviationOrdered By: Jaja Boudreaux on 04-26-2023 Erythrocyte distribution width (RBC) [Entitic vol] 51.6 fL 35.1-43.9 [facility] Hematocrit Auto (Bld) [Volum e fraction]Ordered By: Jaja Boudreaux on 04-26-2023 Hematocrit (Bld) [Volume fraction] 33.6 % 40-54 [facility] Immature granulocytes/100 WB C Auto (Bld)Ordered By: Jaja Boudreaux on 04-26-2023 Immature granulocytes/100 WBC (Bld) 0.600 % 0.0-0.9 [facility] No Panel InformationOrdered By: Jaja Boudreaux on 04-26-2023 0.41 FEU/ug/m 0.27-0.49 [facility] 26.8 pg 27.0-32.0 [facility] 30.7 g/dL 32-36 [facility] 322 K/mm3 150-450 [facility] 0 % 0-5 [facility] 31 mL/min >60 [facility] 38 mL/min >60 [facility] 41.06 ml/min [facility] 24.2 RATIO 10-20 [facility] 24.0 mmol/L 21.0-32.0 [facility] Platelet mean volume Darvin-Ec ker (Bld) [Entitic vol]Ordered By: Jaja Boudreaux on 04-26-2023 Platelet mean volume (Bld) [Entitic vol] 8.9 fL 6.2-12.0 [facility] RBC Auto (Bld) [#/Vol]Ordere d By: Jaja Boudreaux on 04-26-2023 RBC (Bld) [#/Vol] 3.84 10*6/uL 4.6-6.2 [facility] Serum or plasma calcium bernabe urement (mass/volume)Ordered By: Jaja Boudreaux on 04-26-2023 Calcium [Mass/Vol] 10.0 mg/dL 8.5-10.1 [facility] Serum or plasma cardiac trop onin I panel by high sensitivity methodOrdered By: Jaja Boudreaux on 04-26-2023 Tropinin I.cardiac panel High sensitivity method 28 pg/mL 3.0-78.0 [facility] Serum or plasma creatinine m easurement (mass/volume)Ordered By: Jaja Boudreaux on 04-26-2023 Creatinine [Mass/Vol] 2.23 mg/dL 0.70-1.30 [facility] Serum or plasma urea nitroge n measurement (mass/volume)Ordered By: Jaja Boudreaux on 04-26-2023 Urea nitrogen [Mass/Vol] 54 mg/dL 7-18 [facility] Thin prep Papanicolaou smear with manual screeningOrdered By: Jaja Boudreaux on 04-26-2023 Thin prep Papanicolaou smear with manual screening 9 5-15 [facility] Absolute lymphocyte countOrd ered By: Brown Curiel on 04-14-2023 Lymphocytes Auto (Unsp spec) [#/Vol] 0.54 10*3/uL 0.83-4.51 [facility] Basophil percentageOrdered B y: Vishnu Urias on 04-14-2023 Basophil percentage 163 mg/dL 74-106 [facility] Basophil percentage 7.3 g/dL 6.4-8.2 [facility] Basophil percentage 0.70 mg/dL 0.20-1.00 [facility] Basophil percentage 141 mmol/L 136-145 [facility] Basophil percentage 3.1 mmol/L 3.5-5.1 [facility] Basophil percentage 106 mmol/L 98-107 [facility] Basophil percentageOrdered B y: Brown Curiel on 04-14-2023 Basophils (Bld) [#/Vol] 9.7 10*3/uL 4.4-11.0 [facility] Basophils (Bld) [#/Vol] 8.0 10*3/uL 2.0-7.7 [facility] Basophils/100 WBC (Bld) 82.6 % 47-70 [facility] Basophils/100 WBC (Bld) 1.1 % 0-5 [facility] Basophils/100 WBC (Bld) 0.3 % 0-1 [facility] Blood erythrocytes count (nu mber/volume)Ordered By: Brown Curiel on 04-14-2023 RBC (Bld) [#/Vol] 3.96 10*6/uL 4.6-6.2 [facility] Blood hemoglobin measurement (mass/volume)Ordered By: Brown Curiel on 04-14-2023 Hemoglobin (Bld) [Mass/Vol] 10.9 g/dL 13.0-16.5 [facility] Blood lymphocytes/100 leukoc ytesOrdered By: Brown Curiel on 04-14-2023 Lymphocytes/100 WBC (Bld) 5.6 % 19-41 [facility] Blood manual differential co mment interpretation (narrative result)Ordered By: Brown Curiel on 04-14-2023 Manual differential comment Jagdeep (Bld) [Interp] See comment [facility] Blood monocytes/100 leukocyt esOrdered By: Brown Curiel on 04-14-2023 Monocytes/100 WBC (Bld) 10.1 % 0-10 [facility] Blood platelet mean volumeOr dered By: Brown Curiel on 04-14-2023 Platelet mean volume (Bld) [Entitic vol] 9.7 fL 6.2-12.0 [facility] Determination of erythrocyte mean corpuscular volume (MCV)Ordered By: Brown Curiel on 04-14-2023 MCV (RBC) [Entitic vol] 89.4 fL 80-94 [facility] Hematocrit Auto (Bld) [Volum e fraction]Ordered By: Brown Curiel on 04-14-2023 Hematocrit (Bld) [Volume fraction] 35.4 % 40-54 [facility] MCHC Auto (RBC) [Mass/Vol]Or dered By: Brown Curiel on 04-14-2023 MCHC (RBC) [Mass/Vol] 30.8 g/dL 32-36 [facility] No Panel InformationOrdered By: Brown Curiel on 04-14-2023 27.5 pg 27.0-32.0 [facility] 16.1 % 11.6-14.6 [facility] 52.9 fl 35.1-43.9 [facility] 0.300 % 0.0-0.9 [facility] 0 % 0-5 [facility] No Panel InformationOrdered By: Vishnu Urias on 04-14-2023 34 mL/min >60 [facility] 41 mL/min >60 [facility] 16.7 RATIO 10-20 [facility] 3.8 g/dL 2.2-4.2 [facility] 61 U/L 45-117 [facility] 32 U/L 16-61 [facility] 29.0 mmol/L 21.0-32.0 [facility] 1.57 uIU/mL 0.358-3.74 [facility] 65.7 ng/mL [facility] Platelets bldOrdered By: Jose Curiel on 04-14-2023 Platelets (Bld) [#/Vol] 344 10*3/uL 150-450 [facility] Serum or plasma albumin bernabe urement (mass/volume)Ordered By: Vishnu Urias on 04-14-2023 Albumin [Mass/Vol] 3.5 g/dL 3.2-5.0 [facility] Serum or plasma albumin/glob ulin mass ratioOrdered By: Vishnu Urias on 04-14-2023 Albumin/Globulin [Mass ratio] 0.9 {ratio} 0.9-2.4 [facility] Serum or plasma calcium bernabe urement (mass/volume)Ordered By: Vishnu Urias on 04-14-2023 Calcium [Mass/Vol] 9.8 mg/dL 8.5-10.1 [facility] Serum or plasma creatinine m easurement (mass/volume)Ordered By: Vishnu Urias on 04-14-2023 Creatinine [Mass/Vol] 2.09 mg/dL 0.70-1.30 [facility] Serum or plasma urea nitroge n measurement (mass/volume)Ordered By: Vishnu Urias on 04-14-2023 Urea nitrogen [Mass/Vol] 35 mg/dL 7-18 [facility] Thin prep Papanicolaou smear with manual screeningOrdered By: Vishnu Urias on 04-14-2023 Thin prep Papanicolaou smear with manual screening 23 U/L 15-37 [facility] Thin prep Papanicolaou smear with manual screening 6 5-15 [facility] Blood hemoglobin measurement (mass/volume)Ordered By: Tunde Miller on 03-18-2023 Hemoglobin (Bld) [Mass/Vol] 7.5 g/dL 13.0-16.5 [facility] COVID-19 virus antigen assay Ordered By: Tunde Miller on 03-18-2023 SARS-CoV-2 (COVID-19) Ag IA.rapid Ql (Resp) [facility] SARS-CoV-2 (COVID-19) Ag IA.rapid Ql (Resp) [facility] Glucose Glucometer (BldC) [M ass/Vol]Ordered By: Tunde Miller on 03-18-2023 Glucose [Mass/Vol] 151 mg/dL 74-106 [facility] Hematocrit Auto (Bld) [Volum e fraction]Ordered By: Tunde Miller on 03-18-2023 Hematocrit (Bld) [Volume fraction] 24.5 % 40-54 [facility] Absolute lymphocyte countOrd ered By: Tunde Miller on 03-17-2023 Lymphocytes Auto (Unsp spec) [#/Vol] 0.34 10*3/uL 0.83-4.51 [facility] Basophil percentageOrdered B y: Tunde Millre on 03-17-2023 Basophil percentage 166 mg/dL 74-106 [facility] Basophil percentage 140 mmol/L 136-145 [facility] Basophil percentage 3.2 mmol/L 3.5-5.1 [facility] Basophil percentage 109 mmol/L 98-107 [facility] Basophils (Bld) [#/Vol] 7.3 10*3/uL 4.4-11.0 [facility] Basophils (Bld) [#/Vol] 6.0 10*3/uL 2.0-7.7 [facility] Basophils/100 WBC (Bld) 81.3 % 47-70 [facility] Basophils/100 WBC (Bld) 1.4 % 0-5 [facility] Basophils/100 WBC (Bld) 0.4 % 0-1 [facility] Blood erythrocytes count (nu mber/volume)Ordered By: Tunde Miller on 03-17-2023 RBC (Bld) [#/Vol] 2.65 10*6/uL 4.6-6.2 [facility] Blood lymphocytes/100 leukoc ytesOrdered By: Tunde Miller on 03-17-2023 Lymphocytes/100 WBC (Bld) 4.6 % 19-41 [facility] Blood manual differential co mment interpretation (narrative result)Ordered By: Tunde Miller on 03-17-2023 Manual differential comment Jagdeep (Bld) [Interp] SCANNED [facility] Blood monocytes/100 leukocyt esOrdered By: Tunde Miller on 03-17-2023 Monocytes/100 WBC (Bld) 11.9 % 0-10 [facility] Blood platelet mean volumeOr dered By: Tunde Miller on 03-17-2023 Platelet mean volume (Bld) [Entitic vol] 9.0 fL 6.2-12.0 [facility] Determination of erythrocyte mean corpuscular volume (MCV)Ordered By: Tunde Miller on 03-17-2023 MCV (RBC) [Entitic vol] 92.1 fL 80-94 [facility] MCHC Auto (RBC) [Mass/Vol]Or dered By: Tunde Miller on 03-17-2023 MCHC (RBC) [Mass/Vol] 31.1 g/dL 32-36 [facility] No Panel InformationOrdered By: Tunde Miller on 03-17-2023 41 mL/min >60 [facility] 50 mL/min >60 [facility] 42.39 ml/min [facility] 15.3 RATIO 10-20 [facility] 27.0 mmol/L 21.0-32.0 [facility] 28.7 pg 27.0-32.0 [facility] 19.2 % 11.6-14.6 [facility] 63.1 fl 35.1-43.9 [facility] 0.400 % 0.0-0.9 [facility] 0 % 0-5 [facility] Platelets bldOrdered By: Gwen Miller on 03-17-2023 Platelets (Bld) [#/Vol] 224 10*3/uL 150-450 [facility] Serum or plasma calcium bernabe urement (mass/volume)Ordered By: Tunde Miller on 03-17-2023 Calcium [Mass/Vol] 9.1 mg/dL 8.5-10.1 [facility] Serum or plasma creatinine m easurement (mass/volume)Ordered By: Tunde Miller on 03-17-2023 Creatinine [Mass/Vol] 1.77 mg/dL 0.70-1.30 [facility] Serum or plasma urea nitroge n measurement (mass/volume)Ordered By: Tunde Miller on 03-17-2023 Urea nitrogen [Mass/Vol] 27 mg/dL 7-18 [facility] Thin prep Papanicolaou smear with manual screeningOrdered By: Tunde Miller on 03-17-2023 Thin prep Papanicolaou smear with manual screening 4 5-15 [facility] Basophil percentageOrdered B y: Cornelia Burns on 03-15-2023 Basophil percentage 5.4 g/dL 6.4-8.2 [facility] Basophil percentage 3.6 mg/dL 2.5-4.9 [facility] Basophil percentage 0.70 mg/dL 0.20-1.00 [facility] INR in Blood by Coagulation assayOrdered By: Cornelia Burns on 03-15-2023 INR Coag (Bld) [Relative time] 1.2 {INR} [facility] No Panel InformationOrdered By: Cornelia Burns on 03-15-2023 14.9 SECONDS 11.7-14.9 [facility] 2.6 g/dL 2.2-4.2 [facility] 31 U/L 45-117 [facility] 23 U/L 16-61 [facility] 2.0 mg/dL 1.6-2.6 [facility] Serum or plasma albumin bernabe urement (mass/volume)Ordered By: Cornelia Burns on 03-15-2023 Albumin [Mass/Vol] 2.8 g/dL 3.2-5.0 [facility] Serum or plasma albumin/glob ulin mass ratioOrdered By: Cornelia Burns on 03-15-2023 Albumin/Globulin [Mass ratio] 1.1 {ratio} 0.9-2.4 [facility] Thin prep Papanicolaou smear with manual screeningOrdered By: Cornelia Burns on 03-15-2023 Thin prep Papanicolaou smear with manual screening 20 U/L 15-37 [facility] No Panel InformationOrdered By: Clay Harding on 03-14-2023 24.5 Seconds 24.1-36.2 [facility] No Panel InformationOrdered By: Maeve Black on 03-14-2023 1.00 uIU/mL 0.358-3.74 [facility] Whole blood hemoglobin A1c/t otal hemoglobin ratio (mass fraction)Ordered By: Maeve Black on 03-14-2023 HbA1c (Bld) [Mass fraction] % 3.8-5.6 [facility] Absolute lymphocyte countOrd ered By: Ashleigh Coulter on 03-13-2023 Lymphocytes Auto (Unsp spec) [#/Vol] 0.60 10*3/uL 0.83-4.51 [facility] Basophil percentageOrdered B y: Ashleigh Coulter on 03-13-2023 Basophil percentage 183 mg/dL 74-106 [facility] Basophil percentage 5.6 g/dL 6.4-8.2 [facility] Basophil percentage 0.60 mg/dL 0.20-1.00 [facility] Basophil percentage 139 mmol/L 136-145 [facility] Basophil percentage 3.0 mmol/L 3.5-5.1 [facility] Basophil percentage 105 mmol/L 98-107 [facility] Basophils (Bld) [#/Vol] 8.0 10*3/uL 4.4-11.0 [facility] Basophils (Bld) [#/Vol] 6.2 10*3/uL 2.0-7.7 [facility] Basophils/100 WBC (Bld) 77.8 % 47-70 [facility] Basophils/100 WBC (Bld) 1.3 % 0-5 [facility] Basophils/100 WBC (Bld) 0.5 % 0-1 [facility] Blood erythrocytes count (nu mber/volume)Ordered By: Ashleigh Coulter on 03-13-2023 RBC (Bld) [#/Vol] 1.99 10*6/uL 4.6-6.2 [facility] Blood hemoglobin measurement (mass/volume)Ordered By: Ashleigh Coulter on 03-13-2023 Hemoglobin (Bld) [Mass/Vol] 5.8 g/dL 13.0-16.5 [facility] Blood lymphocytes/100 leukoc ytesOrdered By: Ashleigh Coulter on 03-13-2023 Lymphocytes/100 WBC (Bld) 7.5 % 19-41 [facility] Blood manual differential co mment interpretation (narrative result)Ordered By: Ashleigh Coulter on 03-13-2023 Manual differential comment Jagdeep (Bld) [Interp] SEE COMMENT [facility] Blood monocytes/100 leukocyt esOrdered By: Ashleigh Coulter on 03-13-2023 Monocytes/100 WBC (Bld) 11.3 % 0-10 [facility] Blood platelet adequacy dete ction by light microscopyOrdered By: Ashleigh Coulter on 03-13-2023 Platelets LM Ql (Bld) ADEQUATE ADEQ [facility] Blood platelet mean volumeOr dered By: Ashleigh Coulter on 03-13-2023 Platelet mean volume (Bld) [Entitic vol] 9.2 fL 6.2-12.0 [facility] Determination of erythrocyte mean corpuscular volume (MCV)Ordered By: Ashleigh Coulter on 03-13-2023 MCV (RBC) [Entitic vol] 95.5 fL 80-94 [facility] Hematocrit Auto (Bld) [Volum e fraction]Ordered By: Ashleigh Coulter on 03-13-2023 Hematocrit (Bld) [Volume fraction] 19.0 % 40-54 [facility] Lower GI hemoglobin IA Ql (S tl)Ordered By: Ashleigh Coulter on 03-13-2023 Stool gastrointestinal hemoglobin detection by immunologic method Positive [facility] Stool gastrointestinal hemoglobin detection by immunologic method Positive [facility] MCHC Auto (RBC) [Mass/Vol]Or dered By: Ashleigh Coulter on 03-13-2023 MCHC (RBC) [Mass/Vol] 30.5 g/dL 32-36 [facility] Macrocytes detectionOrdered By: Ashleigh Coulter on 03-13-2023 Macrocytes Ql (Bld) RARE [facility] No Panel InformationOrdered By: Ashleigh Coulter on 03-13-2023 29.1 pg 27.0-32.0 [facility] 18.3 % 11.6-14.6 [facility] 60.0 fl 35.1-43.9 [facility] 1.600 % 0.0-0.9 [facility] 0.8 % 0-5 [facility] RARE [facility] 30 mL/min >60 [facility] 36 mL/min >60 [facility] 32.06 ml/min [facility] 29.9 RATIO 10-20 [facility] 2.8 g/dL 2.2-4.2 [facility] 97 U/L 13-75 [facility] 35 U/L 45-117 [facility] 24 U/L 16-61 [facility] 26.0 mmol/L 21.0-32.0 [facility] Platelets bldOrdered By: Joao Coulter on 03-13-2023 Platelets (Bld) [#/Vol] TNP [facility] RBC morphologyOrdered By: Bertha Coulter on 03-13-2023 RBC morphology finding Nom (Bld) N CHROM NORMAL NORM C&C [facility] Review by pathologistOrdered By: Ashleigh Coulter on 03-13-2023 Pathologist review Jagdeep (Unsp spec) [Interp] May foll [facility] Pathologist review Jagdeep (Unsp spec) [Interp] Reviewed [facility] Serum or plasma albumin bernabe urement (mass/volume)Ordered By: Ashleigh Coulter on 03-13-2023 Albumin [Mass/Vol] 2.8 g/dL 3.2-5.0 [facility] Serum or plasma albumin/glob ulin mass ratioOrdered By: Ashleigh Coulter on 03-13-2023 Albumin/Globulin [Mass ratio] 1.0 {ratio} 0.9-2.4 [facility] Serum or plasma calcium bernabe urement (mass/volume)Ordered By: Ashleigh Coulter on 03-13-2023 Calcium [Mass/Vol] 8.7 mg/dL 8.5-10.1 [facility] Serum or plasma creatinine m easurement (mass/volume)Ordered By: Ashleigh Coulter on 03-13-2023 Creatinine [Mass/Vol] 2.34 mg/dL 0.70-1.30 [facility] Serum or plasma urea nitroge n measurement (mass/volume)Ordered By: Ashleigh Coulter on 03-13-2023 Urea nitrogen [Mass/Vol] 70 mg/dL 7-18 [facility] Thin prep Papanicolaou smear with manual screeningOrdered By: Ashleigh Coulter on 03-13-2023 Thin prep Papanicolaou smear with manual screening 11 U/L 15-37 [facility] Thin prep Papanicolaou smear with manual screening 8 5-15 [facility] Absolute lymphocyte countOrd ered By: Cornelia Burns on 03-03-2023 Lymphocytes Auto (Unsp spec) [#/Vol] 0.74 10*3/uL 0.83-4.51 [facility] Basophil percentageOrdered B y: Cody Orion on 03-03-2023 Basophil percentage 151 mg/dL 74-106 [facility] Basophil percentage 142 mmol/L 136-145 [facility] Basophil percentage 3.7 mmol/L 3.5-5.1 [facility] Basophil percentage 110 mmol/L 98-107 [facility] Basophil percentageOrdered B y: Cornelia Burns on 03-03-2023 Basophil percentage 2.9 mg/dL 2.5-4.9 [facility] Basophils (Bld) [#/Vol] 10.6 10*3/uL 4.4-11.0 [facility] Basophils (Bld) [#/Vol] 8.1 10*3/uL 2.0-7.7 [facility] Basophils/100 WBC (Bld) 76.7 % 47-70 [facility] Basophils/100 WBC (Bld) 1.5 % 0-5 [facility] Basophils/100 WBC (Bld) 0.4 % 0-1 [facility] Blood erythrocytes count (nu mber/volume)Ordered By: Cornelia Burns on 03-03-2023 RBC (Bld) [#/Vol] 3.12 10*6/uL 4.6-6.2 [facility] Blood hemoglobin measurement (mass/volume)Ordered By: Cornelia Burns on 03-03-2023 Hemoglobin (Bld) [Mass/Vol] 9.1 g/dL 13.0-16.5 [facility] Blood lymphocytes/100 leukoc ytesOrdered By: Cornelia Burns on 03-03-2023 Lymphocytes/100 WBC (Bld) 7.0 % 19-41 [facility] Blood monocytes/100 leukocyt esOrdered By: Cornelia Burns on 03-03-2023 Monocytes/100 WBC (Bld) 12.5 % 0-10 [facility] Blood platelet mean volumeOr dered By: Cornelia Burns on 03-03-2023 Platelet mean volume (Bld) [Entitic vol] 9.4 fL 6.2-12.0 [facility] Determination of erythrocyte mean corpuscular volume (MCV)Ordered By: Cornelia Burns on 03-03-2023 MCV (RBC) [Entitic vol] 95.5 fL 80-94 [facility] Glucose Glucometer (BldC) [M ass/Vol]Ordered By: Cornelia Burns on 03-03-2023 Glucose [Mass/Vol] 250 mg/dL 74-106 [facility] Hematocrit Auto (Bld) [Volum e fraction]Ordered By: Cornelia Burns on 03-03-2023 Hematocrit (Bld) [Volume fraction] 29.8 % 40-54 [facility] MCHC Auto (RBC) [Mass/Vol]Or dered By: Cornelia Burns on 03-03-2023 MCHC (RBC) [Mass/Vol] 30.5 g/dL 32-36 [facility] No Panel InformationOrdered By: Cornelia Burns on 03-03-2023 29.2 pg 27.0-32.0 [facility] 18.5 % 11.6-14.6 [facility] 58.5 fl 35.1-43.9 [facility] 1.900 % 0.0-0.9 [facility] 0.8 % 0-5 [facility] 2.0 mg/dL 1.6-2.6 [facility] No Panel InformationOrdered By: Cody Sears on 03-03-2023 28 mL/min >60 [facility] 34 mL/min >60 [facility] 30.38 ml/min [facility] 23.9 RATIO 10-20 [facility] 24.0 mmol/L 21.0-32.0 [facility] Platelets bldOrdered By: Genna Burns on 03-03-2023 Platelets (Bld) [#/Vol] 311 10*3/uL 150-450 [facility] Serum or plasma calcium bernabe urement (mass/volume)Ordered By: Cody Sears on 03-03-2023 Calcium [Mass/Vol] 9.5 mg/dL 8.5-10.1 [facility] Serum or plasma creatinine m easurement (mass/volume)Ordered By: Cody Sears on 03-03-2023 Creatinine [Mass/Vol] 2.47 mg/dL 0.70-1.30 [facility] Serum or plasma urea nitroge n measurement (mass/volume)Ordered By: Cody Sears on 03-03-2023 Urea nitrogen [Mass/Vol] 59 mg/dL 7-18 [facility] Thin prep Papanicolaou smear with manual screeningOrdered By: Cody Sears on 03-03-2023 Thin prep Papanicolaou smear with manual screening 8 5-15 [facility] INR in Blood by Coagulation assayOrdered By: Brent Lambert on 03-01-2023 INR Coag (Bld) [Relative time] 1.2 {INR} [facility] No Panel InformationOrdered By: Brent Lambert on 03-01-2023 15.5 SECONDS 11.7-14.9 [facility] 21.1 Seconds 24.1-36.2 [facility] 137 U/L 16-61 [facility] Thin prep Papanicolaou smear with manual screeningOrdered By: Brent Lambert on 03-01-2023 Thin prep Papanicolaou smear with manual screening 111 U/L 15-37 [facility] Whole blood hemoglobin A1c/t otal hemoglobin ratio (mass fraction)Ordered By: Clay Harding on 02-28-2023 HbA1c (Bld) [Mass fraction] 5.9 % 3.8-5.6 [facility] Absolute lymphocyte countOrd ered By: Linus Yanez on 02-26-2023 Lymphocytes Auto (Unsp spec) [#/Vol] 0.41 10*3/uL 0.83-4.51 [facility] Basophil percentageOrdered B y: Linus Yanez on 02-26-2023 Basophil percentage 194 mg/dL 74-106 [facility] Basophil percentage 141 mmol/L 136-145 [facility] Basophil percentage 4.4 mmol/L 3.5-5.1 [facility] Basophil percentage 110 mmol/L 98-107 [facility] Basophils (Bld) [#/Vol] 9.3 10*3/uL 4.4-11.0 [facility] Basophils (Bld) [#/Vol] 7.9 10*3/uL 2.0-7.7 [facility] Basophils/100 WBC (Bld) 84.1 % 47-70 [facility] Basophils/100 WBC (Bld) 1.2 % 0-5 [facility] Basophils/100 WBC (Bld) 0.4 % 0-1 [facility] Blood erythrocytes count (nu mber/volume)Ordered By: Linus Yanez on 02-26-2023 RBC (Bld) [#/Vol] 3.52 10*6/uL 4.6-6.2 [facility] Blood hemoglobin measurement (mass/volume)Ordered By: Linus Yanez on 02-26-2023 Hemoglobin (Bld) [Mass/Vol] 10.1 g/dL 13.0-16.5 [facility] Blood lymphocytes/100 leukoc ytesOrdered By: Linus Yanez on 02-26-2023 Lymphocytes/100 WBC (Bld) 4.4 % 19-41 [facility] Blood manual differential co mment interpretation (narrative result)Ordered By: Lyle Coleman on 02-26-2023 Manual differential comment Jagdeep (Bld) [Interp] SCANNED [facility] Blood manual differential co mment interpretation (narrative result)Ordered By: Linus Yanez on 02-26-2023 Manual differential comment Jagdeep (Bld) [Interp] SCANNED [facility] Blood monocytes/100 leukocyt esOrdered By: Linus Yanez on 02-26-2023 Monocytes/100 WBC (Bld) 8.9 % 0-10 [facility] Blood platelet mean volumeOr dered By: Linus Yanez on 02-26-2023 Platelet mean volume (Bld) [Entitic vol] 9.2 fL 6.2-12.0 [facility] Determination of erythrocyte mean corpuscular volume (MCV)Ordered By: Linus Yanez on 02-26-2023 MCV (RBC) [Entitic vol] 94.0 fL 80-94 [facility] Hematocrit Auto (Bld) [Volum e fraction]Ordered By: Linus Yanez on 02-26-2023 Hematocrit (Bld) [Volume fraction] 33.1 % 40-54 [facility] MCHC Auto (RBC) [Mass/Vol]Or dered By: Linus Yanez on 02-26-2023 MCHC (RBC) [Mass/Vol] 30.5 g/dL 32-36 [facility] No Panel InformationOrdered By: Linus Yanez on 02-26-2023 28.7 pg 27.0-32.0 [facility] 16.5 % 11.6-14.6 [facility] 55.4 fl 35.1-43.9 [facility] 1.000 % 0.0-0.9 [facility] 0 % 0-5 [facility] 25 mL/min >60 [facility] 30 mL/min >60 [facility] 27.38 ml/min [facility] 19.7 RATIO 10-20 [facility] 28 pg/mL 3.0-78.0 [facility] 24.0 mmol/L 21.0-32.0 [facility] 2.52 uIU/mL 0.358-3.74 [facility] 417.8 pg/mL 0-100 [facility] Platelets bldOrdered By: Jimbo Yanez on 02-26-2023 Platelets (Bld) [#/Vol] 267 10*3/uL 150-450 [facility] Serum or plasma calcium bernabe urement (mass/volume)Ordered By: Linus Yanez on 02-26-2023 Calcium [Mass/Vol] 10.4 mg/dL 8.5-10.1 [facility] Serum or plasma creatinine m easurement (mass/volume)Ordered By: Linus Yanez on 02-26-2023 Creatinine [Mass/Vol] 2.74 mg/dL 0.70-1.30 [facility] Serum or plasma urea nitroge n measurement (mass/volume)Ordered By: Linus Yanez on 02-26-2023 Urea nitrogen [Mass/Vol] 54 mg/dL 7-18 [facility] Thin prep Papanicolaou smear with manual screeningOrdered By: Linus Yanez on 02-26-2023 Thin prep Papanicolaou smear with manual screening 7 5-15 [facility] Basophil percentageOrdered B y: Hank Negrete on 11-07-2022 Basophil percentage 114 mg/dL 74-106 [facility] Basophil percentage 134 mmol/L 136-145 [facility] Basophil percentage 4.3 mmol/L 3.5-5.1 [facility] Basophil percentage 104 mmol/L 98-107 [facility] Basophils (Bld) [#/Vol] 5.4 10*3/uL 4.4-11.0 [facility] Blood erythrocytes count (nu mber/volume)Ordered By: Hank Negrete on 11-07-2022 RBC (Bld) [#/Vol] 4.75 10*6/uL 4.6-6.2 [facility] Blood hemoglobin measurement (mass/volume)Ordered By: Hank Negrete on 11-07-2022 Hemoglobin (Bld) [Mass/Vol] 14.1 g/dL 13.0-16.5 [facility] Blood platelet mean volumeOr dered By: Hank Negrete on 11-07-2022 Platelet mean volume (Bld) [Entitic vol] 10.4 fL 6.2-12.0 [facility] Determination of erythrocyte mean corpuscular volume (MCV)Ordered By: Hank Negrete on 11-07-2022 MCV (RBC) [Entitic vol] 91.2 fL 80-94 [facility] Hematocrit Auto (Bld) [Volum e fraction]Ordered By: Hank Negrete on 11-07-2022 Hematocrit (Bld) [Volume fraction] 43.3 % 40-54 [facility] MCHC Auto (RBC) [Mass/Vol]Or dered By: Hank Negrete on 11-07-2022 MCHC (RBC) [Mass/Vol] 32.6 g/dL 32-36 [facility] No Panel InformationOrdered By: Hank Negrete on 11-07-2022 29.7 pg 27.0-32.0 [facility] 14.1 % 11.6-14.6 [facility] 47.9 fl 35.1-43.9 [facility] 53 mL/min >60 [facility] 64 mL/min >60 [facility] 18.3 RATIO 10-20 [facility] 25.0 mmol/L 21.0-32.0 [facility] Platelets bldOrdered By: Allison Negrete on 11-07-2022 Platelets (Bld) [#/Vol] 232 10*3/uL 150-450 [facility] Serum or plasma calcium bernabe urement (mass/volume)Ordered By: Hank Negrete on 11-07-2022 Calcium [Mass/Vol] 10.2 mg/dL 8.5-10.1 [facility] Serum or plasma creatinine m easurement (mass/volume)Ordered By: Hank Negrete on 11-07-2022 Creatinine [Mass/Vol] 1.42 mg/dL 0.70-1.30 [facility] Serum or plasma urea nitroge n measurement (mass/volume)Ordered By: Hank Negrtee on 11-07-2022 Urea nitrogen [Mass/Vol] 26 mg/dL 7-18 [facility] Thin prep Papanicolaou smear with manual screeningOrdered By: Hank Negrete on 11-07-2022 Thin prep Papanicolaou smear with manual screening 5 5-15 [facility] Basophil percentageOrdered B y: Hank Negrete on 10-31-2022 Basophil percentage 126 mg/dL 74-106 [facility] Basophil percentage 139 mmol/L 136-145 [facility] Basophil percentage 4.1 mmol/L 3.5-5.1 [facility] Basophil percentage 106 mmol/L 98-107 [facility] Basophils (Bld) [#/Vol] 9.7 10*3/uL 4.4-11.0 [facility] Blood erythrocytes count (nu mber/volume)Ordered By: Hank Negrete on 10-31-2022 RBC (Bld) [#/Vol] 4.85 10*6/uL 4.6-6.2 [facility] Blood hemoglobin measurement (mass/volume)Ordered By: Hank Negrete on 10-31-2022 Hemoglobin (Bld) [Mass/Vol] 13.9 g/dL 13.0-16.5 [facility] Blood platelet mean volumeOr dered By: Hank Negrete on 10-31-2022 Platelet mean volume (Bld) [Entitic vol] 9.6 fL 6.2-12.0 [facility] Determination of erythrocyte mean corpuscular volume (MCV)Ordered By: Hank Negrete on 10-31-2022 MCV (RBC) [Entitic vol] 92.6 fL 80-94 [facility] Hematocrit Auto (Bld) [Volum e fraction]Ordered By: Hank Negrete on 10-31-2022 Hematocrit (Bld) [Volume fraction] 44.9 % 40-54 [facility] MCHC Auto (RBC) [Mass/Vol]Or dered By: Hank Negrete on 10-31-2022 MCHC (RBC) [Mass/Vol] 31.0 g/dL 32-36 [facility] No Panel InformationOrdered By: Hank Negrete on 10-31-2022 28.7 pg 27.0-32.0 [facility] 13.7 % 11.6-14.6 [facility] 46.3 fl 35.1-43.9 [facility] 46 mL/min >60 [facility] 55 mL/min >60 [facility] 14.2 RATIO 10-20 [facility] 31.0 mmol/L 21.0-32.0 [facility] Platelets bldOrdered By: Allison Negrete on 10-31-2022 Platelets (Bld) [#/Vol] 360 10*3/uL 150-450 [facility] Serum or plasma calcium bernabe urement (mass/volume)Ordered By: Hank Negrete on 10-31-2022 Calcium [Mass/Vol] 11.1 mg/dL 8.5-10.1 [facility] Serum or plasma creatinine m easurement (mass/volume)Ordered By: Hank Negrete on 10-31-2022 Creatinine [Mass/Vol] 1.62 mg/dL 0.70-1.30 [facility] Serum or plasma urea nitroge n measurement (mass/volume)Ordered By: Hank Negrete on 10-31-2022 Urea nitrogen [Mass/Vol] 23 mg/dL 7-18 [facility] Thin prep Papanicolaou smear with manual screeningOrdered By: Hank Negrete on 10-31-2022 Thin prep Papanicolaou smear with manual screening 2 5-15 [facility] Basophil percentageOrdered B y: Chema Alex on 10-27-2022 Basophil percentage 131 mg/dL 74-106 [facility] Basophil percentage 7.3 g/dL 6.4-8.2 [facility] Basophil percentage 0.50 mg/dL 0.20-1.00 [facility] Basophil percentage 138 mmol/L 136-145 [facility] Basophil percentage 4.0 mmol/L 3.5-5.1 [facility] Basophil percentage 106 mmol/L 98-107 [facility] Basophils (Bld) [#/Vol] 6.9 10*3/uL 4.4-11.0 [facility] Blood erythrocytes count (nu mber/volume)Ordered By: Chema Alex on 10-27-2022 RBC (Bld) [#/Vol] 4.36 10*6/uL 4.6-6.2 [facility] Blood hemoglobin measurement (mass/volume)Ordered By: Chema Alex on 10-27-2022 Hemoglobin (Bld) [Mass/Vol] 12.5 g/dL 13.0-16.5 [facility] Blood platelet mean volumeOr dered By: Chema Alex on 10-27-2022 Platelet mean volume (Bld) [Entitic vol] 9.3 fL 6.2-12.0 [facility] Determination of erythrocyte mean corpuscular volume (MCV)Ordered By: Chema Alex on 10-27-2022 MCV (RBC) [Entitic vol] 92.4 fL 80-94 [facility] Glucose Glucometer (BldC) [M ass/Vol]Ordered By: Kassidy Velez on 10-27-2022 Glucose [Mass/Vol] 168 mg/dL 74-106 [facility] Hematocrit Auto (Bld) [Volum e fraction]Ordered By: Chema Alex on 10-27-2022 Hematocrit (Bld) [Volume fraction] 40.3 % 40-54 [facility] MCHC Auto (RBC) [Mass/Vol]Or dered By: Chema Alex on 10-27-2022 MCHC (RBC) [Mass/Vol] 31.0 g/dL 32-36 [facility] No Panel InformationOrdered By: Chema Alex on 10-27-2022 28.7 pg 27.0-32.0 [facility] 13.8 % 11.6-14.6 [facility] 46.9 fl 35.1-43.9 [facility] 45 mL/min >60 [facility] 54 mL/min >60 [facility] 46.37 ml/min [facility] 15.9 RATIO 10-20 [facility] 3.7 g/dL 2.2-4.2 [facility] 57 U/L 45-117 [facility] 29 U/L 16-61 [facility] 24.0 mmol/L 21.0-32.0 [facility] Platelets bldOrdered By: Antonia Alex on 10-27-2022 Platelets (Bld) [#/Vol] 354 10*3/uL 150-450 [facility] Serum or plasma albumin bernabe urement (mass/volume)Ordered By: Chema Alex on 10-27-2022 Albumin [Mass/Vol] 3.6 g/dL 3.2-5.0 [facility] Serum or plasma albumin/glob ulin mass ratioOrdered By: Chema Alex on 10-27-2022 Albumin/Globulin [Mass ratio] 1.0 {ratio} 0.9-2.4 [facility] Serum or plasma calcium bernabe urement (mass/volume)Ordered By: Chema Alex on 10-27-2022 Calcium [Mass/Vol] 10.5 mg/dL 8.5-10.1 [facility] Serum or plasma creatinine m easurement (mass/volume)Ordered By: Chema Alex on 10-27-2022 Creatinine [Mass/Vol] 1.64 mg/dL 0.70-1.30 [facility] Serum or plasma urea nitroge n measurement (mass/volume)Ordered By: Chema Alex on 10-27-2022 Urea nitrogen [Mass/Vol] 26 mg/dL 7-18 [facility] Thin prep Papanicolaou smear with manual screeningOrdered By: Chema Alex on 10-27-2022 Thin prep Papanicolaou smear with manual screening 19 U/L 15-37 [facility] Thin prep Papanicolaou smear with manual screening 8 5-15 [facility] Absolute lymphocyte countOrd ered By: Kassidy Velez on 10-26-2022 Lymphocytes Auto (Unsp spec) [#/Vol] 0.71 10*3/uL 0.83-4.51 [facility] Basophil percentageOrdered B y: Kassidy Velez on 10-26-2022 Basophils (Bld) [#/Vol] 5.4 10*3/uL 2.0-7.7 [facility] Basophils/100 WBC (Bld) 73.4 % 47-70 [facility] Basophils/100 WBC (Bld) 1.9 % 0-5 [facility] Basophils/100 WBC (Bld) 1.0 % 0-1 [facility] Blood lymphocytes/100 leukoc ytesOrdered By: Kassidy Velez on 10-26-2022 Lymphocytes/100 WBC (Bld) 9.7 % 19-41 [facility] Blood monocytes/100 leukocyt esOrdered By: Kassidy Velez on 10-26-2022 Monocytes/100 WBC (Bld) 12.8 % 0-10 [facility] No Panel InformationOrdered By: Kassidy Velez on 10-26-2022 139.1 Seconds 24.1-36.2 [facility] 251 sec 74-137 [facility] 1.200 % 0.0-0.9 [facility] 0 % 0-5 [facility] Basophil percentageOrdered B y: Kassidy Velez on 10-25-2022 Basophil percentage 2.6 mg/dL 2.5-4.9 [facility] No Panel InformationOrdered By: Kassidy Velez on 10-25-2022 2.3 mg/dL 1.6-2.6 [facility] 87.9 ng/mL [facility] 197.7 pg/mL 18.4-80.1 [facility] INR in Blood by Coagulation assayOrdered By: yT Rocha on 10-22-2022 INR Coag (Bld) [Relative time] 1.3 {INR} [facility] No Panel InformationOrdered By: Ty Rocha on 10-22-2022 16.4 SECONDS 11.7-14.9 [facility] Basophil percentageOrdered B y: White on 10-21-2022 Basophil percentage 165 mg/dL <200 [facility] Basophil percentage 192 mg/dL <199 [facility] No Panel InformationOrdered By: White on 10-21-2022 5.79 mg/dL 4.36-5.20 [facility] 36 pg/mL 3.0-78.0 [facility] 2.83 uIU/mL 0.358-3.74 [facility] 1.8 mg/dL 1.6-2.6 [facility] No Panel InformationOrdered By: Jaja Boudreaux on 10-21-2022 29 pg/mL 3.0-78.0 [facility] Serum or plasma cholesterol in HDL measurement (mass/volume)Ordered By: Purvi Camila on 10-21-2022 Cholesterol in HDL [Mass/Vol] 25 mg/dL >40 [facility] Serum or plasma cholesterol in VLDL measurement (mass/volume)Ordered By: on 10-21-2022 Cholesterol in VLDL [Mass/Vol] 38 mg/dL 5-40 [facility] Serum or plasma low density lipoprotein (LDL) cholesterol measurement (mass/volume)Ordered By: on 10-21-2022 Cholesterol in LDL [Mass/Vol] 102 mg/dL 0-130 [facility] Absolute lymphocyte countOrd ered By: Jaja Boudreaux on 10-20-2022 Lymphocytes Auto (Unsp spec) [#/Vol] 0.61 10*3/uL 0.83-4.51 [facility] Basophil percentageOrdered B y: Jaja Boudreaux on 10-20-2022 Basophil percentage 126 mg/dL 74-106 [facility] Basophil percentage 139 mmol/L 136-145 [facility] Basophil percentage 4.6 mmol/L 3.5-5.1 [facility] Basophil percentage 104 mmol/L 98-107 [facility] Basophils (Bld) [#/Vol] 6.7 10*3/uL 4.4-11.0 [facility] Basophils (Bld) [#/Vol] 5.0 10*3/uL 2.0-7.7 [facility] Basophils/100 WBC (Bld) 74.2 % 47-70 [facility] Basophils/100 WBC (Bld) 2.7 % 0-5 [facility] Basophils/100 WBC (Bld) 0.7 % 0-1 [facility] Basophil percentageOrdered B y: Hank Negrete on 10-20-2022 Basophil percentage 84 mg/dL 74-106 [facility] Basophil percentage 137 mmol/L 136-145 [facility] Basophil percentage 4.1 mmol/L 3.5-5.1 [facility] Basophil percentage 105 mmol/L 98-107 [facility] Basophils (Bld) [#/Vol] 7.5 10*3/uL 4.4-11.0 [facility] Blood erythrocytes count (nu mber/volume)Ordered By: Jaja Boudreaux on 10-20-2022 RBC (Bld) [#/Vol] 4.09 10*6/uL 4.6-6.2 [facility] Blood erythrocytes count (nu mber/volume)Ordered By: Hank Negrete on 10-20-2022 RBC (Bld) [#/Vol] 4.40 10*6/uL 4.6-6.2 [facility] Blood hemoglobin measurement (mass/volume)Ordered By: Jaja Boudreaux on 10-20-2022 Hemoglobin (Bld) [Mass/Vol] 11.9 g/dL 13.0-16.5 [facility] Blood hemoglobin measurement (mass/volume)Ordered By: Hank Negrete on 10-20-2022 Hemoglobin (Bld) [Mass/Vol] 12.6 g/dL 13.0-16.5 [facility] Blood lymphocytes/100 leukoc ytesOrdered By: Jaja Boudreaux on 10-20-2022 Lymphocytes/100 WBC (Bld) 9.1 % 19-41 [facility] Blood monocytes/100 leukocyt esOrdered By: Jaja Boudreaux on 10-20-2022 Monocytes/100 WBC (Bld) 12.7 % 0-10 [facility] Blood platelet mean volumeOr dered By: Jaja Boudreaux on 10-20-2022 Platelet mean volume (Bld) [Entitic vol] 10.3 fL 6.2-12.0 [facility] Blood platelet mean volumeOr dered By: Hank Negrete on 10-20-2022 Platelet mean volume (Bld) [Entitic vol] 10.1 fL 6.2-12.0 [facility] Determination of erythrocyte mean corpuscular volume (MCV)Ordered By: Jaja Boudreaux on 10-20-2022 MCV (RBC) [Entitic vol] 92.2 fL 80-94 [facility] Determination of erythrocyte mean corpuscular volume (MCV)Ordered By: Hank Negrete on 10-20-2022 MCV (RBC) [Entitic vol] 93.0 fL 80-94 [facility] Hematocrit Auto (Bld) [Volum e fraction]Ordered By: Jaja Boudreaux on 10-20-2022 Hematocrit (Bld) [Volume fraction] 37.7 % 40-54 [facility] Hematocrit Auto (Bld) [Volum e fraction]Ordered By: Hank Negrete on 10-20-2022 Hematocrit (Bld) [Volume fraction] 40.9 % 40-54 [facility] MCHC Auto (RBC) [Mass/Vol]Or dered By: Jaja Boudreaux on 10-20-2022 MCHC (RBC) [Mass/Vol] 31.6 g/dL 32-36 [facility] MCHC Auto (RBC) [Mass/Vol]Or dered By: Hank Negrete on 10-20-2022 MCHC (RBC) [Mass/Vol] 30.8 g/dL 32-36 [facility] No Panel InformationOrdered By: Jaja Boudreaux on 10-20-2022 29.1 pg 27.0-32.0 [facility] 13.8 % 11.6-14.6 [facility] 0.600 % 0.0-0.9 [facility] 0 % 0-5 [facility] 0.70 FEU/ug/m 0.27-0.49 [facility] 43 mL/min >60 [facility] 51 mL/min >60 [facility] 44.21 ml/min [facility] 18.6 RATIO 10-20 [facility] 28.0 mmol/L 21.0-32.0 [facility] 225.1 pg/mL 0-100 [facility] 46.5 fl 35.1-43.9 [facility] No Panel InformationOrdered By: Hank Negrete on 10-20-2022 28.6 pg 27.0-32.0 [facility] 13.6 % 11.6-14.6 [facility] 44 mL/min >60 [facility] 53 mL/min >60 [facility] 18.0 RATIO 10-20 [facility] 26.0 mmol/L 21.0-32.0 [facility] Platelets bldOrdered By: Martina Boudreaux on 10-20-2022 Platelets (Bld) [#/Vol] 355 10*3/uL 150-450 [facility] Platelets bldOrdered By: Allison Negrete on 10-20-2022 Platelets (Bld) [#/Vol] 349 10*3/uL 150-450 [facility] Serum or plasma calcium bernabe urement (mass/volume)Ordered By: Jaja Boudreaux on 10-20-2022 Calcium [Mass/Vol] 12.1 mg/dL 8.5-10.1 [facility] Serum or plasma calcium bernabe urement (mass/volume)Ordered By: Hank Negrete on 10-20-2022 Calcium [Mass/Vol] 11.7 mg/dL 8.5-10.1 [facility] Serum or plasma creatinine m easurement (mass/volume)Ordered By: Jaja Boudreaux on 10-20-2022 Creatinine [Mass/Vol] 1.72 mg/dL 0.70-1.30 [facility] Serum or plasma creatinine m easurement (mass/volume)Ordered By: Hank Negrete on 10-20-2022 Creatinine [Mass/Vol] 1.67 mg/dL 0.70-1.30 [facility] Serum or plasma urea nitroge n measurement (mass/volume)Ordered By: Jaja Boudreaux on 10-20-2022 Urea nitrogen [Mass/Vol] 32 mg/dL 10-25 [facility] Serum or plasma urea nitroge n measurement (mass/volume)Ordered By: Hank Negrete on 10-20-2022 Urea nitrogen [Mass/Vol] 30 mg/dL 10-25 [facility] Thin prep Papanicolaou smear with manual screeningOrdered By: Jaja Boudreaux on 10-20-2022 Thin prep Papanicolaou smear with manual screening 7 08-22 [facility] Thin prep Papanicolaou smear with manual screeningOrdered By: Hank Negrete on 10-20-2022 Thin prep Papanicolaou smear with manual screening 6 - [facility] Basophil percentageOrdered B y: Kingsley Hollis on 10-18-2022 Basophil percentage 134 mg/dL 74-106 [facility] Basophil percentage 138 mmol/L 136-145 [facility] Basophil percentage 3.2 mmol/L 3.5-5.1 [facility] Basophil percentage 106 mmol/L 98-107 [facility] Glucose Glucometer (BldC) [M ass/Vol]Ordered By: Kingsley Hollis on 10-18-2022 Glucose [Mass/Vol] 180 mg/dL 74-106 [facility] No Panel InformationOrdered By: Kingsley Hollis on 10-18-2022 51 mL/min >60 [facility] 61 mL/min >60 [facility] 51.38 ml/min [facility] 16.9 RATIO 10-20 [facility] 26.0 mmol/L 21.0-32.0 [facility] Serum or plasma calcium bernabe urement (mass/volume)Ordered By: Kingsley Hollis on 10-18-2022 Calcium [Mass/Vol] 10.4 mg/dL 8.5-10.1 [facility] Serum or plasma creatinine m easurement (mass/volume)Ordered By: Kingsley Hollis on 10-18-2022 Creatinine [Mass/Vol] 1.48 mg/dL 0.70-1.30 [facility] Serum or plasma urea nitroge n measurement (mass/volume)Ordered By: Kingsley Hollis on 10-18-2022 Urea nitrogen [Mass/Vol] 25 mg/dL 7-18 [facility] Thin prep Papanicolaou smear with manual screeningOrdered By: Kingsley Hollis on 10-18-2022 Thin prep Papanicolaou smear with manual screening 6 5-15 [facility] Absolute lymphocyte countOrd ered By: Lyle Coleman on 10-17-2022 Lymphocytes Auto (Unsp spec) [#/Vol] 0.37 10*3/uL 0.83-4.51 [facility] Absolute lymphocyte countOrd ered By: Marco Lara on 10-17-2022 Lymphocytes Auto (Unsp spec) [#/Vol] 0.33 10*3/uL 0.83-4.51 [facility] Basophil percentageOrdered B y: Lyle Coleman on 10-17-2022 Basophils (Bld) [#/Vol] 10.2 10*3/uL 4.4-11.0 [facility] Basophils (Bld) [#/Vol] 8.4 10*3/uL 2.0-7.7 [facility] Basophils/100 WBC (Bld) 82.1 % 47-70 [facility] Basophils/100 WBC (Bld) 0.3 % 0-1 [facility] Basophil percentageOrdered B y: Marco Lara on 10-17-2022 Basophil percentage 1.4 mmol/L 0.4-2.0 [facility] Basophils/100 WBC (Bld) 0.3 % 0-1 [facility] Chloride [Moles/Vol] 103 mmol/L 98-107 [facility] Eosinophils/100 WBC (Bld) 0.3 % 0-5 [facility] Glucose [Mass/Vol] 176 mg/dL 74-106 [facility] Comment on above: Fasting Glucose resu lt greater than or equal to 126 mg/dL suggests DIABETES MELLITUS per A.D.A. criteria. Lactate [Moles/Vol] 1.4 mmol/L 0.4-2.0 [facility] Neutrophils (Bld) [#/Vol] 9.8 10*3/uL 2.0-7.7 [facility] Neutrophils/100 WBC (Bld) 84.3 % 47-70 [facility] Potassium [Moles/Vol] 3.2 mmol/L 3.5-5.1 [facility] Comment on above: Moderate Hemolysis, Result may be falsely increased. Sodium [Moles/Vol] 136 mmol/L 136-145 [facility] WBC (Bld) [#/Vol] 11.7 10*3/uL 4.4-11.0 [facility] Blood erythrocytes count (nu mber/volume)Ordered By: Lyle Coleman on 10-17-2022 RBC (Bld) [#/Vol] 4.22 10*6/uL 4.6-6.2 [facility] Blood erythrocytes count (nu mber/volume)Ordered By: Marco Lara on 10-17-2022 RBC (Bld) [#/Vol] 4.44 10*6/uL 4.6-6.2 [facility] Blood hemoglobin measurement (mass/volume)Ordered By: Lyle Coleman on 10-17-2022 Hemoglobin (Bld) [Mass/Vol] 12.5 g/dL 13.0-16.5 [facility] Blood hemoglobin measurement (mass/volume)Ordered By: Marco Lara on 10-17-2022 Hemoglobin (Bld) [Mass/Vol] 13.1 g/dL 13.0-16.5 [facility] Blood lymphocytes/100 leukoc ytesOrdered By: Lyle Coleman on 10-17-2022 Lymphocytes/100 WBC (Bld) 3.6 % 19-41 [facility] Blood lymphocytes/100 leukoc ytesOrdered By: Marco Lara on 10-17-2022 Lymphocytes/100 WBC (Bld) 2.8 % -41 [facility] Blood monocytes/100 leukocyt esOrdered By: Lyle Coleman on 10-17-2022 Monocytes/100 WBC (Bld) 13.2 % 0-10 [facility] Blood monocytes/100 leukocyt esOrdered By: Marco Lara on 10-17-2022 Monocytes/100 WBC (Bld) 11.7 % 0-10 [facility] Blood platelet mean volumeOr dered By: Lyle Coleman on 10-17-2022 Platelet mean volume (Bld) [Entitic vol] 9.3 fL 6.2-12.0 [facility] Blood platelet mean volumeOr dered By: Marco Lara on 10-17-2022 Platelet mean volume (Bld) [Entitic vol] 9.7 fL 6.2-12.0 [facility] Determination of erythrocyte mean corpuscular volume (MCV)Ordered By: Lyle Coleman on 10-17-2022 MCV (RBC) [Entitic vol] 89.1 fL 80-94 [facility] Determination of erythrocyte mean corpuscular volume (MCV)Ordered By: Marco Lara on 10-17-2022 MCV (RBC) [Entitic vol] 88.5 fL 80-94 [facility] Erythrocyte sedimentation ra teOrdered By: Marco Lara on 10-17-2022 ESR (Bld) [Velocity] 25 mm/h 0-20 [facility] Hematocrit Auto (Bld) [Volum e fraction]Ordered By: Lyle Coleman on 10-17-2022 Hematocrit (Bld) [Volume fraction] 37.6 % 40-54 [facility] Hematocrit Auto (Bld) [Volum e fraction]Ordered By: Marco Lara on 10-17-2022 Hematocrit (Bld) [Volume fraction] 39.3 % [facility] - Chemistry and C hemistry - challengeOrdered By: Marco Lara on 10-17-2022 CO2 [Moles/Vol] 24.0 mmol/L 21.0-32.0 [facility] Urea nitrogen/Creatinine [Mass ratio] 18.2 mg/mg 01-27 [facility] - Hematology and Cell countsOrdered By: Marco Lara on 10-17-2022 Erythrocyte distribution width (RBC) [Entitic vol] 43.9 fL 35.1-43.9 [facility] Erythrocyte distribution width (RBC) [Ratio] 13.5 % 11.6-14.6 [facility] Immature granulocytes/100 WBC (Bld) 0.600 % 0.0-0.9 [facility] Comment on above: IG% - Immature Granu locytes (promyelocytes, myelocytes and metamyelocytes) > 1% indicates that a LEFT SHIFT is Present. MCH (RBC) [Entitic mass] 29.5 pg 27.0-32.0 [facility] Nucleated RBC/100 WBC (Bld) [Ratio] 0 % 0- [facility] MCHC Auto (RBC) [Mass/Vol]Or dered By: Lyle Coleman on 10-17-2022 MCHC (RBC) [Mass/Vol] 33.2 g/dL 32-36 [facility] MCHC Auto (RBC) [Mass/Vol]Or dered By: Marco Lara on 10-17-2022 MCHC (RBC) [Mass/Vol] 33.3 g/dL 32-36 [facility] No Panel InformationOrdered By: Lyle Coleman on 10-17-2022 29.6 pg 27.0-32.0 [facility] 13.6 % 11.6-14.6 [facility] 44.6 fl 35.1-43.9 [facility] 0.500 % 0.0-0.9 [facility] 0 % 0-5 [facility] No Panel InformationOrdered By: Marco Lara on 10-17-2022 Estimated Creatinine Clearance Calc 46.09 ml/min [facility] Estimated GFR (MDRD) Amer 54 mL/min >60 [facility] Comment on above: GFR Calc Estimated GFR (MDRD) Non-Af Amer 45 mL/min >60 [facility] Comment on above: Non- GFR Calc Platelets bldOrdered By: Bryant Lopezjrruperto on 10-17-2022 Platelets (Bld) [#/Vol] 257 10*3/uL 150-450 [facility] Platelets bldOrdered By: Gómez Lara on 10-17-2022 Platelets (Bld) [#/Vol] 284 10*3/uL 150-450 [facility] Serum or plasma C reactive p rotein measurement (mass/volume)Ordered By: Marco Lara on 10-17-2022 CRP [Mass/Vol] 55.90 mg/L 0.0-3.0 [facility] Comment on above: C-Reactive Protein ( CRP) provides useful information for thediagnosis, therapy and monitoring of inflammatory processesand associated diseases. For the evaluation of Relative Riskfor Cardiovascular Disease, a High Sensitivity CRP (HSCRP)should be ordered. Serum or plasma calcium bernabe urement (mass/volume)Ordered By: Marco Lara on 10-17-2022 Calcium [Mass/Vol] 10.4 mg/dL 8.5-10.1 [facility] Serum or plasma creatinine m easurement (mass/volume)Ordered By: Marco Lara on 10-17-2022 Creatinine [Mass/Vol] 1.65 mg/dL 0.70-1.30 [facility] Comment on above: The validity of the calculated GFR & GFRAA in patients over 70 years has not been determined. Clinical correlation is essential. Serum or plasma urea nitroge n measurement (mass/volume)Ordered By: Marco Lara on 10-17-2022 Urea nitrogen [Mass/Vol] 30 mg/dL 7-18 [facility] Serum or plasma uric acid me asurement (mass/volume)Ordered By: Marco Lara on 10-17-2022 Urate [Mass/Vol] 6.9 mg/dL 3.5-7.2 [facility] Comment on above: The drugs N-Acetylcy steine and Metamizole may falsely depress this assay. Thin prep Papanicolaou smear with manual screeningOrdered By: Marco Lara on 10-17-2022 Thin prep Papanicolaou smear with manual screening 9 5-15 [facility] Basophil percentageOrdered B y: Vishnu Urias on 09-06-2022 Basophil percentage 149 mg/dL 74-106 [facility] Basophil percentage 7.5 g/dL 6.4-8.2 [facility] Basophil percentage 0.70 mg/dL 0.20-1.00 [facility] Basophil percentage 141 mmol/L 136-145 [facility] Basophil percentage 3.6 mmol/L 3.5-5.1 [facility] Basophil percentage 104 mmol/L 98-107 [facility] Bilirubin [Mass/Vol] 0.70 mg/dL 0.20-1.00 [facility] Comment on above: For patients on eltr ombopag therapy, use of Dimension [place] TBIL is not recommended. Chloride [Moles/Vol] 104 mmol/L 98-107 [facility] Glucose [Mass/Vol] 149 mg/dL 74-106 [facility] Comment on above: Fasting Glucose resu lt greater than or equal to 126 mg/dL suggests DIABETES MELLITUS per A.D.A. criteria. Potassium [Moles/Vol] 3.6 mmol/L 3.5-5.1 [facility] Protein [Mass/Vol] 7.5 g/dL 6.4-8.2 [facility] Sodium [Moles/Vol] 141 mmol/L 136-145 [facility] Laboratory - Chemistry and C hemistry - challengeOrdered By: Vishnu Urias on 09-06-2022 ALP [Catalytic activity/Vol] 47 U/L 45-117 [facility] ALT [Catalytic activity/Vol] 40 U/L 16-61 [facility] CO2 [Moles/Vol] 27.0 mmol/L 21.0-32.0 [facility] Globulin (S) [Mass/Vol] 3.5 g/dL 2.2-4.2 [facility] Urea nitrogen/Creatinine [Mass ratio] 23.2 mg/mg 10-20 [facility] No Panel InformationOrdered By: Vishnu Urias on 09-06-2022 Estimated GFR (MDRD) Amer 42 mL/min >60 [facility] Comment on above: GFR Calc Estimated GFR (MDRD) Non-Af Amer 34 mL/min >60 [facility] Comment on above: Non- GFR Calc Parathyroid Hormone (Intact) 170.5 pg/mL 18.4-80.1 [facility] Vitamin D 25-Hydroxy 67.5 ng/mL [facility] Comment on above: Vitamin D 25(OH) Sta tus Range Deficiency <20 ng/mL (50nmol/L) Insufficiency 20 - 30 ng/mL (50 - 75 nmol/L) Sufficiency 30 - 100 ng/mL (75 - 250 nmol/L) Toxicity >100 ng/mL (>250 nmol/L) 34 mL/min >60 [facility] 42 mL/min >60 [facility] 23.2 RATIO 10-20 [facility] 3.5 g/dL 2.2-4.2 [facility] 47 U/L 45-117 [facility] 40 U/L 16-61 [facility] 27.0 mmol/L 21.0-32.0 [facility] 67.5 ng/mL [facility] 170.5 pg/mL 18.4-80.1 [facility] Serum or plasma albumin bernabe urement (mass/volume)Ordered By: Vishnu Urias on 09-06-2022 Albumin [Mass/Vol] 4.0 g/dL 3.2-5.0 [facility] Serum or plasma albumin/glob ulin mass ratioOrdered By: Vishnu Urias on 09-06-2022 Albumin/Globulin [Mass ratio] 1.1 {ratio} 0.9-2.4 [facility] Serum or plasma calcium bernabe urement (mass/volume)Ordered By: Vishnu Urias on 09-06-2022 Calcium [Mass/Vol] 10.8 mg/dL 8.5-10.1 [facility] Serum or plasma creatinine m easurement (mass/volume)Ordered By: Vishnu Urias on 09-06-2022 Creatinine [Mass/Vol] 2.07 mg/dL 0.70-1.30 [facility] Comment on above: The validity of the calculated GFR & GFRAA in patients over 70 years has not been determined. Clinical correlation is essential. Serum or plasma urea nitroge n measurement (mass/volume)Ordered By: Vishnu Urias on 09-06-2022 Urea nitrogen [Mass/Vol] 48 mg/dL 7-18 [facility] Thin prep Papanicolaou smear with manual screeningOrdered By: Vishnu Urias on 09-06-2022 Thin prep Papanicolaou smear with manual screening 21 U/L 15-37 [facility] Thin prep Papanicolaou smear with manual screening 10 5-15 [facility] Whole blood hemoglobin A1c/t otal hemoglobin ratio (mass fraction)Ordered By: Vishnu Urias on 09-06-2022 HbA1c (Bld) [Mass fraction] 6.4 % 3.8-5.6 [facility] Comment on above: Normal < 5.7 % Predi abetic 5.7 - 6.4 % Diabetic >or= 6.5 % Please note range changes. Basophil percentageOrdered B y: Dr. Urias on 07-07-2022 Basophil percentage 110 mg/dL 74-106 [facility] Basophil percentage 7.3 g/dL 6.4-8.2 [facility] Basophil percentage 0.60 mg/dL 0.20-1.00 [facility] Basophil percentage 138 mmol/L 136-145 [facility] Basophil percentage 4.0 mmol/L 3.5-5.1 [facility] Basophil percentage 104 mmol/L 98-107 [facility] Basophil percentageOrdered B y: Vishnu Urias on 07-07-2022 Bilirubin [Mass/Vol] 0.60 mg/dL 0.20-1.00 [facility] Comment on above: For patients on eltr ombopag therapy, use of Dimension [place] TBIL is not recommended. Chloride [Moles/Vol] 104 mmol/L 98-107 [facility] Glucose [Mass/Vol] 110 mg/dL 74-106 [facility] Comment on above: Fasting Glucose resu lt from 100 to 125 mg/dL suggests IMPAIRED HOMEOSTASIS per A.D.A. criteria. Potassium [Moles/Vol] 4.0 mmol/L 3.5-5.1 [facility] Comment on above: Moderate Hemolysis, Result may be falsely increased. Protein [Mass/Vol] 7.3 g/dL 6.4-8.2 [facility] Sodium [Moles/Vol] 138 mmol/L 136-145 [facility] Laboratory - Chemistry and C hemistry - challengeOrdered By: Vishnu Urias on 07-07-2022 ALP [Catalytic activity/Vol] 52 U/L 45-117 [facility] ALT [Catalytic activity/Vol] 41 U/L 16-61 [facility] CO2 [Moles/Vol] 27.0 mmol/L 21.0-32.0 [facility] Globulin (S) [Mass/Vol] 3.4 g/dL 2.2-4.2 [facility] Urea nitrogen/Creatinine [Mass ratio] 17.7 mg/mg 10-20 [facility] No Panel InformationOrdered By: Vishnu Urias on 07-07-2022 Estimated GFR (MDRD) Amer 65 mL/min >60 [facility] Comment on above: GFR Calc Estimated GFR (MDRD) Non-Af Amer 54 mL/min >60 [facility] Comment on above: Non- GFR Calc No Panel InformationOrdered By: Dr. Urias on 07-07-2022 54 mL/min >60 [facility] 65 mL/min >60 [facility] 17.7 RATIO 10-20 [facility] 3.4 g/dL 2.2-4.2 [facility] 52 U/L 45-117 [facility] 41 U/L 16-61 [facility] 27.0 mmol/L 21.0-32.0 [facility] Serum or plasma albumin bernabe urement (mass/volume)Ordered By: Dr. Urias on 07-07-2022 Albumin [Mass/Vol] 3.9 g/dL 3.2-5.0 [facility] Serum or plasma albumin/glob ulin mass ratioOrdered By: Dr. Urias on 07-07-2022 Albumin/Globulin [Mass ratio] 1.1 {ratio} 0.9-2.4 [facility] Serum or plasma calcium bernabe urement (mass/volume)Ordered By: Dr. Urias on 07-07-2022 Calcium [Mass/Vol] 11.0 mg/dL 8.5-10.1 [facility] Serum or plasma creatinine m easurement (mass/volume)Ordered By: Dr. Urias on 07-07-2022 Creatinine [Mass/Vol] 1.41 mg/dL 0.70-1.30 [facility] Comment on above: The validity of the calculated GFR & GFRAA in patients over 70 years has not been determined. Clinical correlation is essential. Serum or plasma urea nitroge n measurement (mass/volume)Ordered By: Dr. Urias on 07-07-2022 Urea nitrogen [Mass/Vol] 25 mg/dL 7-18 [facility] Thin prep Papanicolaou smear with manual screeningOrdered By: Dr. Urias on 07-07-2022 Thin prep Papanicolaou smear with manual screening 32 U/L 15-37 [facility] Comment on above: Moderate Hemolysis, Result may be falsely increased. Thin prep Papanicolaou smear with manual screening 7 5-15 [facility] Basophil percentageOrdered B y: Dr. Raymond on 06-07-2022 Basophil percentage 151 mg/dL 74-106 [facility] Basophil percentage 139 mmol/L 136-145 [facility] Basophil percentage 4.7 mmol/L 3.5-5.1 [facility] Basophil percentage 104 mmol/L 98-107 [facility] No Panel InformationOrdered By: Dr. Raymond on 06-07-2022 57 mL/min >60 [facility] 69 mL/min >60 [facility] 16.4 RATIO 10-20 [facility] 26.0 mmol/L 21.0-32.0 [facility] Serum or plasma calcium bernabe urement (mass/volume)Ordered By: Dr. Raymond on 06-07-2022 Calcium [Mass/Vol] 12.1 mg/dL 8.5-10.1 [facility] Serum or plasma creatinine m easurement (mass/volume)Ordered By: Dr. Raymond on 06-07-2022 Creatinine [Mass/Vol] 1.34 mg/dL 0.70-1.30 [facility] Serum or plasma urea nitroge n measurement (mass/volume)Ordered By: Dr. Raymond on 06-07-2022 Urea nitrogen [Mass/Vol] 22 mg/dL 7-18 [facility] Thin prep Papanicolaou smear with manual screeningOrdered By: Dr. Raymond on 06-07-2022 Thin prep Papanicolaou smear with manual screening 9 - [facility] Basophil percentageOrdered B y: Dr. Raymond on 05-24-2022 Basophil percentage 171 mg/dL 74-106 [facility] Basophil percentage 141 mmol/L 136-145 [facility] Basophil percentage 4.1 mmol/L 3.5-5.1 [facility] Basophil percentage 104 mmol/L 98-107 [facility] No Panel InformationOrdered By: Dr. Raymond on 05-24-2022 56 mL/min >60 [facility] 68 mL/min >60 [facility] 23.5 RATIO 10-20 [facility] 30.0 mmol/L 21.0-32.0 [facility] Serum or plasma calcium bernabe urement (mass/volume)Ordered By: Dr. Raymond on 05-24-2022 Calcium [Mass/Vol] 10.9 mg/dL 8.5-10.1 [facility] Serum or plasma creatinine m easurement (mass/volume)Ordered By: Dr. Raymond on 05-24-2022 Creatinine [Mass/Vol] 1.36 mg/dL 0.70-1.30 [facility] Serum or plasma urea nitroge n measurement (mass/volume)Ordered By: Dr. Raymond on 05-24-2022 Urea nitrogen [Mass/Vol] 32 mg/dL 7-18 [facility] Thin prep Papanicolaou smear with manual screeningOrdered By: Dr. Raymond on 05-24-2022 Thin prep Papanicolaou smear with manual screening 7 08-22 [facility] Absolute lymphocyte countOrd ered By: Dr. Tariq on 05-20-2022 Lymphocytes Auto (Unsp spec) [#/Vol] 0.67 10*3/uL 0.83-4.51 [facility] Basophil percentageOrdered B y: Dr. Tariq on 05-20-2022 Basophil percentage 164 mg/dL 74-106 [facility] Basophil percentage 142 mmol/L 136-145 [facility] Basophil percentage 3.9 mmol/L 3.5-5.1 [facility] Basophil percentage 106 mmol/L 98-107 [facility] Basophils (Bld) [#/Vol] 6.7 10*3/uL 4.4-11.0 [facility] Basophils (Bld) [#/Vol] 5.0 10*3/uL 2.0-7.7 [facility] Basophils/100 WBC (Bld) 74.9 % 47-70 [facility] Basophils/100 WBC (Bld) 2.9 % 0-5 [facility] Basophils/100 WBC (Bld) 0.6 % 0-1 [facility] Blood erythrocytes count (nu mber/volume)Ordered By: Dr. Tariq on 05-20-2022 RBC (Bld) [#/Vol] 4.57 10*6/uL 4.6-6.2 [facility] Blood hemoglobin measurement (mass/volume)Ordered By: Dr. Tariq on 05-20-2022 Hemoglobin (Bld) [Mass/Vol] 12.5 g/dL 13.0-16.5 [facility] Blood lymphocytes/100 leukoc ytesOrdered By: Dr. Tariq on 05-20-2022 Lymphocytes/100 WBC (Bld) 10.1 % 19-41 [facility] Blood monocytes/100 leukocyt esOrdered By: Dr. Tariq on 05-20-2022 Monocytes/100 WBC (Bld) 11.0 % 0-10 [facility] Blood platelet mean volumeOr dered By: Dr. Tariq on 05-20-2022 Platelet mean volume (Bld) [Entitic vol] 9.1 fL 6.2-12.0 [facility] COVID-19 virus antigen assay Ordered By: Dr. Tariq on 05-20-2022 SARS-CoV-2 (COVID-19) Ag IA.rapid Ql (Resp) [facility] Determination of erythrocyte mean corpuscular volume (MCV)Ordered By: Dr. Tariq on 05-20-2022 MCV (RBC) [Entitic vol] 87.5 fL 80-94 [facility] Hematocrit Auto (Bld) [Volum e fraction]Ordered By: Dr. Tariq on 05-20-2022 Hematocrit (Bld) [Volume fraction] 40.0 % 40-54 [facility] INR in Blood by Coagulation assayOrdered By: Dr. Tariq on 05-20-2022 INR Coag (Bld) [Relative time] 1.1 {INR} [facility] MCHC Auto (RBC) [Mass/Vol]Or dered By: Dr. Tariq on 05-20-2022 MCHC (RBC) [Mass/Vol] 31.3 g/dL 32-36 [facility] No Panel InformationOrdered By: Dr. Tariq on 05-20-2022 27.4 pg 27.0-32.0 [facility] 18.6 % 11.6-14.6 [facility] 59.2 fl 35.1-43.9 [facility] 0.500 % 0.0-0.9 [facility] 0 % 0-5 [facility] 13.6 SECONDS 11.7-14.9 [facility] 25.0 Seconds 24.1-36.2 [facility] 0.49 FEU/ug/m 0.27-0.49 [facility] 56 mL/min >60 [facility] 68 mL/min >60 [facility] 55.91 ml/min [facility] 27.2 RATIO 10-20 [facility] 39 pg/mL 3.0-78.0 [facility] 28.0 mmol/L 21.0-32.0 [facility] 240.9 pg/mL 0-100 [facility] Platelets bldOrdered By: Dr. Tariq on 05-20-2022 Platelets (Bld) [#/Vol] 264 10*3/uL 150-450 [facility] Serum or plasma calcium bernabe urement (mass/volume)Ordered By: Dr. Tariq on 05-20-2022 Calcium [Mass/Vol] 10.7 mg/dL 8.5-10.1 [facility] Serum or plasma creatinine m easurement (mass/volume)Ordered By: Dr. Tariq on 05-20-2022 Creatinine [Mass/Vol] 1.36 mg/dL 0.70-1.30 [facility] Serum or plasma urea nitroge n measurement (mass/volume)Ordered By: Dr. Tariq on 05-20-2022 Urea nitrogen [Mass/Vol] 37 mg/dL 7-18 [facility] Thin prep Papanicolaou smear with manual screeningOrdered By: Dr. Tariq on 05-20-2022 Thin prep Papanicolaou smear with manual screening 8 5-15 [facility] Absolute lymphocyte countOrd ered By: Dr. Raymond on 05-19-2022 Lymphocytes Auto (Unsp spec) [#/Vol] 0.75 10*3/uL 0.83-4.51 [facility] Basophil percentageOrdered B y: Dr. Raymond on 05-19-2022 Basophils (Bld) [#/Vol] 6.6 10*3/uL 4.4-11.0 [facility] Basophils (Bld) [#/Vol] 4.6 10*3/uL 2.0-7.7 [facility] Basophils/100 WBC (Bld) 70.7 % 47-70 [facility] Basophils/100 WBC (Bld) 3.4 % 0-5 [facility] Basophils/100 WBC (Bld) 0.6 % 0-1 [facility] Blood erythrocytes count (nu mber/volume)Ordered By: Dr. Raymond on 05-19-2022 RBC (Bld) [#/Vol] 4.64 10*6/uL 4.6-6.2 [facility] Blood hemoglobin measurement (mass/volume)Ordered By: Dr. Raymond on 05-19-2022 Hemoglobin (Bld) [Mass/Vol] 12.6 g/dL 13.0-16.5 [facility] Blood lymphocytes/100 leukoc ytesOrdered By: Dr. Raymond on 05-19-2022 Lymphocytes/100 WBC (Bld) 11.4 % 19-41 [facility] Blood monocytes/100 leukocyt esOrdered By: Dr. Raymond on 05-19-2022 Monocytes/100 WBC (Bld) 13.3 % 0-10 [facility] Blood platelet mean volumeOr dered By: Dr. Raymond on 05-19-2022 Platelet mean volume (Bld) [Entitic vol] 9.4 fL 6.2-12.0 [facility] Determination of erythrocyte mean corpuscular volume (MCV)Ordered By: Dr. Raymond on 05-19-2022 MCV (RBC) [Entitic vol] 88.8 fL 80-94 [facility] Hematocrit Auto (Bld) [Volum e fraction]Ordered By: Dr. Raymond on 05-19-2022 Hematocrit (Bld) [Volume fraction] 41.2 % 40-54 [facility] MCHC Auto (RBC) [Mass/Vol]Or dered By: Dr. Raymond on 05-19-2022 MCHC (RBC) [Mass/Vol] 30.6 g/dL 32-36 [facility] No Panel InformationOrdered By: Dr. Raymond on 05-19-2022 27.2 pg 27.0-32.0 [facility] 18.7 % 11.6-14.6 [facility] 59.6 fl 35.1-43.9 [facility] 0.600 % 0.0-0.9 [facility] 0 % 0-5 [facility] 237.8 pg/mL 0-100 [facility] No Panel Informationon 05-19 7.5 % 4.2-6.3 [facility] Platelets bldOrdered By: Dr. Raymond on 05-19-2022 Platelets (Bld) [#/Vol] 270 10*3/uL 150-450 [facility] Basophil percentageOrdered B y: Dr. Urias on 05-10-2022 Basophil percentage 173 mg/dL 74-106 [facility] Basophil percentage 7.7 g/dL 6.4-8.2 [facility] Basophil percentage 0.50 mg/dL 0.20-1.00 [facility] Basophil percentage 141 mmol/L 136-145 [facility] Basophil percentage 3.7 mmol/L 3.5-5.1 [facility] Basophil percentage 103 mmol/L 98-107 [facility] No Panel InformationOrdered By: Dr. Urias on 05-10-2022 55 mL/min >60 [facility] 67 mL/min >60 [facility] 22.6 RATIO 10-20 [facility] 3.6 g/dL 2.2-4.2 [facility] 56 U/L 45-117 [facility] 40 U/L 16-61 [facility] 29.0 mmol/L 21.0-32.0 [facility] 12.1 ng/mL [facility] Serum or plasma albumin bernabe urement (mass/volume)Ordered By: Dr. Urias on 05-10-2022 Albumin [Mass/Vol] 4.1 g/dL 3.2-5.0 [facility] Serum or plasma albumin/glob ulin mass ratioOrdered By: Dr. Urias on 05-10-2022 Albumin/Globulin [Mass ratio] 1.1 {ratio} 0.9-2.4 [facility] Serum or plasma calcium bernabe urement (mass/volume)Ordered By: Dr. Urias on 05-10-2022 Calcium [Mass/Vol] 10.9 mg/dL 8.5-10.1 [facility] Serum or plasma creatinine m easurement (mass/volume)Ordered By: Dr. Urias on 05-10-2022 Creatinine [Mass/Vol] 1.37 mg/dL 0.70-1.30 [facility] Serum or plasma urea nitroge n measurement (mass/volume)Ordered By: Dr. Urias on 05-10-2022 Urea nitrogen [Mass/Vol] 31 mg/dL 7-18 [facility] Thin prep Papanicolaou smear with manual screeningOrdered By: Dr. Urias on 05-10-2022 Thin prep Papanicolaou smear with manual screening 23 U/L 15-37 [facility] Thin prep Papanicolaou smear with manual screening 9 5-15 [facility] No Panel Informationon 02-24 5.8 % 4.2-6.3 [facility] Iron measurement (mass/mass) Ordered By: Dr. Raymond on 02-17-2022 Iron (Unsp spec) [Mass/Mass] 35 ug/dL 65-175 [facility] No Panel Informationon 02-17 Total Iron Binding Capacity 569 ug/dL 250-450 [facility] Work Phone: No Panel InformationOrdered By: Dr. Raymond on 02-17-2022 569 ug/dL 250-450 [facility] Serum or plasma ferritin nicki surement (mass/volume)Ordered By: Dr. Raymond on 02-17-2022 Ferritin [Mass/Vol] 18 ng/mL 26-388 [facility] Absolute lymphocyte countOrd ered By: Dr. Raymond on 02-16-2022 Lymphocytes Auto (Unsp spec) [#/Vol] 0.56 10*3/uL 0.83-4.51 [facility] Basophil percentageOrdered B y: Dr. Raymond on 02-16-2022 Basophil percentage 161 mg/dL 74-106 [facility] Basophil percentage 7.4 g/dL 6.4-8.2 [facility] Basophil percentage 0.50 mg/dL 0.20-1.00 [facility] Basophil percentage 140 mmol/L 136-145 [facility] Basophil percentage 4.0 mmol/L 3.5-5.1 [facility] Basophil percentage 104 mmol/L 98-107 [facility] Basophils (Bld) [#/Vol] 7.1 10*3/uL 4.4-11.0 [facility] Basophils (Bld) [#/Vol] 5.3 10*3/uL 2.0-7.7 [facility] Basophils/100 WBC (Bld) 0.6 % 0-1 [facility] Basophils/100 WBC (Bld) 75.0 % 47-70 [facility] Basophils/100 WBC (Bld) 3.5 % 0-5 [facility] Basophil percentageon 2021 Bilirubin [Mass/Vol] 0.50 mg/dL 0.20-1.00 [facility] Work Phone: Comment on above: For patients on eltr ombopag therapy, use of Dimension [place] TBIL is not recommended. Chloride [Moles/Vol] 104 mmol/L 98-107 [facility] Work Phone: Eosinophils/100 WBC (Bld) 3.5 % 0-5 [facility] Work Phone: Glucose [Mass/Vol] 161 mg/dL 74-106 [facility] Work Phone: Comment on above: Fasting Glucose resu lt greater than or equal to 126 mg/dL suggests DIABETES MELLITUS per A.D.A. criteria. Neutrophils (Bld) [#/Vol] 5.3 10*3/uL 2.0-7.7 [facility] Work Phone: Neutrophils/100 WBC (Bld) 75.0 % 47-70 [facility] Work Phone: Potassium [Moles/Vol] 4.0 mmol/L 3.5-5.1 [facility] Work Phone: [phone] Protein [Mass/Vol] 7.4 g/dL 6.4-8.2 [facility] Work Phone: Sodium [Moles/Vol] 140 mmol/L 136-145 [facility] Work Phone: WBC (Bld) [#/Vol] 7.1 10*3/uL 4.4-11.0 [facility] Work Phone: [phone] Blood erythrocytes count (nu mber/volume)Ordered By: Dr. Raymond on 02-16-2022 RBC (Bld) [#/Vol] 3.38 10*6/uL 4.6-6.2 [facility] Blood hemoglobin measurement (mass/volume)Ordered By: Dr. Raymond on 02-16-2022 Hemoglobin (Bld) [Mass/Vol] 9.1 g/dL 13.0-16.5 [facility] Blood lymphocytes/100 leukoc ytesOrdered By: Dr. Raymond on 02-16-2022 Lymphocytes/100 WBC (Bld) 7.9 % 19-41 [facility] Blood manual differential co mment interpretation (narrative result)Ordered By: Dr. Raymond on 02-16-2022 Manual differential comment Jagdeep (Bld) [Interp] SCANNED [facility] Blood monocytes/[address] leukocyt esOrdered By: [address] Raymond on 02-16-2022 Monocytes/100 WBC (Bld) 12.6 % 0-10 [facility] Blood platelet mean volumeOr dered By: Dr. Raymond on 02-16-2022 Platelet mean volume (Bld) [Entitic vol] 9.2 fL 6.2-12.0 [facility] Determination of erythrocyte mean corpuscular volume (MCV)Ordered By: Dr. Raymond on 02-16-2022 MCV (RBC) [Entitic vol] 90.2 fL 80-94 [facility] Hematocrit Auto (Bld) [Volum e fraction]Ordered By: Dr. Raymond on 02-16-2022 Hematocrit (Bld) [Volume fraction] 30.5 % 40-54 [facility] Laboratory - Chemistry and C hemistry - challengeon 02-16-2022 ALP [Catalytic activity/Vol] 51 U/L 45-117 [facility] Work Phone: ALT [Catalytic activity/Vol] 33 U/L 16-61 [facility] Work Phone: CO2 [Moles/Vol] 28.0 mmol/L 21.0-32.0 [facility] Work Phone: Globulin (S) [Mass/Vol] 3.3 g/dL 2.2-4.2 [facility] Work Phone: Urea nitrogen/Creatinine [Mass ratio] 16.4 mg/mg 10-20 [facility] Work Phone: Laboratory - Hematology and Cell countson 02-16-2022 HbA1c (Bld) [Mass fraction] 6.0 % 4.2-6.3 [facility] Work Phone: Erythrocyte distribution width (RBC) [Entitic vol] 49.6 fL 35.1-43.9 [facility] Work Phone: Erythrocyte distribution width (RBC) [Ratio] 15.3 % 11.6-14.6 [facility] Work Phone: Immature granulocytes/100 WBC (Bld) 0.400 % 0.0-0.9 [facility] Work Phone: Comment on above: IG% - Immature Granu locytes (promyelocytes, myelocytes and metamyelocytes) > 1% indicates that a LEFT SHIFT is Present. MCH (RBC) [Entitic mass] 26.9 pg 27.0-32.0 [facility] Work Phone: Nucleated RBC/100 WBC (Bld) [Ratio] 0 % 0-5 [facility] Work Phone: MCHC Auto (RBC) [Mass/Vol]Or dered By: Dr. Raymond on 02-16-2022 MCHC (RBC) [Mass/Vol] 29.8 g/dL 32-36 [facility] No Panel Informationon 02-16 6.0 % 4.2-6.3 [facility] Estimated GFR (MDRD) Amer 69 mL/min >60 [facility] Work Phone: Comment on above: GFR Calc Estimated GFR (MDRD) Non-Af Amer 57 mL/min >60 [facility] Work Phone: Comment on above: Non- GFR Calc No Panel InformationOrdered By: Dr. Raymond on 02-16-2022 26.9 pg 27.0-32.0 [facility] 15.3 % 11.6-14.6 [facility] 49.6 fl 35.1-43.9 [facility] 0.400 % 0.0-0.9 [facility] 0 % 0-5 [facility] 57 mL/min >60 [facility] 69 mL/min >60 [facility] 16.4 RATIO 10-20 [facility] 3.3 g/dL 2.2-4.2 [facility] 51 U/L 45-117 [facility] 33 U/L 16-61 [facility] 28.0 mmol/L 21.0-32.0 [facility] Platelets bldOrdered By: Dr. Raymond on 02-16-2022 Platelets (Bld) [#/Vol] 353 10*3/uL 150-450 [facility] Serum or plasma albumin bernabe urement (mass/volume)Ordered By: Dr. Raymond on 02-16-2022 Albumin [Mass/Vol] 4.1 g/dL 3.2-5.0 [facility] Serum or plasma albumin/glob ulin mass ratioOrdered By: Dr. Raymond on 02-16-2022 Albumin/Globulin [Mass ratio] 1.2 {ratio} 0.9-2.4 [facility] Serum or plasma calcium bernabe urement (mass/volume)Ordered By: Dr. Raymond on 02-16-2022 Calcium [Mass/Vol] 11.3 mg/dL 8.5-10.1 [facility] Serum or plasma creatinine m easurement (mass/volume)Ordered By: Dr. Raymond on 02-16-2022 Creatinine [Mass/Vol] 1.34 mg/dL 0.70-1.30 [facility] Comment on above: The validity of the calculated GFR & GFRAA in patients over 70 years has not been determined. Clinical correlation is essential. Serum or plasma urea nitroge n measurement (mass/volume)Ordered By: Dr. Raymond on 02-16-2022 Urea nitrogen [Mass/Vol] 22 mg/dL 7-18 [facility] Thin prep Papanicolaou smear with manual screeningOrdered By: Dr. Raymond on 02-16-2022 Thin prep Papanicolaou smear with manual screening 17 U/L 15-37 [facility] Thin prep Papanicolaou smear with manual screening 8 5-15 [facility] Absolute lymphocyte counton 01-17-2022 Lymphocytes Auto (Unsp spec) [#/Vol] 0.81 10*3/uL 0.83-4.51 [facility] Work Phone: Basophil percentageon 2021 Basophils/100 WBC (Bld) 0.8 % 0-1 [facility] Work Phone: Bilirubin [Mass/Vol] 0.40 mg/dL 0.20-1.00 [facility] Work Phone: Comment on above: For patients on eltr ombopag therapy, use of Dimension [place] TBIL is not recommended. Chloride [Moles/Vol] 106 mmol/L 98-107 [facility] Work Phone: Eosinophils/100 WBC (Bld) 3.7 % 0-5 [facility] Work Phone: Glucose [Mass/Vol] 148 mg/dL 74-106 [facility] Work Phone: [phone] Comment on above: Fasting Glucose resu lt greater than or equal to 126 mg/dL suggests DIABETES MELLITUS per A.D.A. criteria. Neutrophils (Bld) [#/Vol] 5.3 10*3/uL 2.0-7.7 [facility] Work Phone: Neutrophils/100 WBC (Bld) 70.9 % 47-70 [facility] Work Phone: Potassium [Moles/Vol] 3.9 mmol/L 3.5-5.1 [facility] Work Phone: Protein [Mass/Vol] 7.2 g/dL 6.4-8.2 [place] [facility] Work Phone: Sodium [Moles/Vol] 141 mmol/L 136-145 [place] [facility] Work Phone: [phone] WBC (Bld) [#/Vol] 7.5 10*3/uL 4.4-11.0 [place] [facility] Work Phone: Blood erythrocytes count (nu mber/volume)on 01-17-2022 RBC (Bld) [#/Vol] 4.21 10*6/uL 4.6-6.2 [place] [facility] Work Phone: [phone] Blood hemoglobin measurement (mass/volume)on 01-17-2022 Hemoglobin (Bld) [Mass/Vol] 12.6 g/dL 13.0-16.5 [facility] Work Phone: Blood lymphocytes/100 leukoc yteson 01-17-2022 Lymphocytes/100 WBC (Bld) 10.8 % 19-41 [facility] Work Phone: Blood monocytes/100 leukocyt eson 01-17-2022 Monocytes/100 WBC (Bld) 13.3 % 0-10 [facility] Work Phone: Blood platelet mean volumeon 01-17-2022 Platelet mean volume (Bld) [Entitic vol] 9.7 fL 6.2-12.0 [facility] Work Phone: Determination of erythrocyte mean corpuscular volume (MCV)on 01-17-2022 MCV (RBC) [Entitic vol] 93.1 fL 80-94 [facility] Work Phone: Hematocrit Auto (Bld) [Volum e fraction]on 01-17-2022 Hematocrit (Bld) [Volume fraction] 39.2 % 40-54 [facility] Work Phone: Laboratory - Chemistry and C hemistry - challengeon 01-17-2022 ALP [Catalytic activity/Vol] 53 U/L 45-117 [facility] Work Phone: ALT [Catalytic activity/Vol] 37 U/L 16-61 [facility] Work Phone: CO2 [Moles/Vol] 25.0 mmol/L 21.0-32.0 [facility] Work Phone: Globulin (S) [Mass/Vol] 3.6 g/dL 2.2-4.2 [facility] Work Phone: Natriuretic peptide B (Bld) [Mass/Vol] 130.4 pg/mL 0-100 [facility] Work Phone: Urea nitrogen/Creatinine [Mass ratio] 31.0 mg/mg 10-20 [facility] Work Phone: Laboratory - Hematology and Cell countson 01-17-2022 Erythrocyte distribution width (RBC) [Entitic vol] 49.3 fL 35.1-43.9 [facility] Work Phone: Erythrocyte distribution width (RBC) [Ratio] 14.6 % 11.6-14.6 [facility] Work Phone: Immature granulocytes/100 WBC (Bld) 0.500 % 0.0-0.9 [facility] Work Phone: Comment on above: IG% - Immature Granu locytes (promyelocytes, myelocytes and metamyelocytes) > 1% indicates that a LEFT SHIFT is Present. MCH (RBC) [Entitic mass] 29.9 pg 27.0-32.0 [facility] Work Phone: Nucleated RBC/100 WBC (Bld) [Ratio] 0 % 0-5 [facility] Work Phone: MCHC Auto (RBC) [Mass/Vol]on 01-17-2022 MCHC (RBC) [Mass/Vol] 32.1 g/dL 32-36 [facility] No Panel Informationon 01-17 Estimated GFR (MDRD) Amer 74 mL/min >60 [facility] Work Phone: Comment on above: GFR Calc Estimated GFR (MDRD) Non-Af Amer 61 mL/min >60 [facility] Work Phone: Comment on above: Non- GFR Calc Platelets bldon 01-17-2022 Platelets (Bld) [#/Vol] 293 10*3/uL 150-450 [facility] Work Phone: Serum or plasma albumin bernabe urement (mass/volume)on 01-17-2022 Albumin [Mass/Vol] 3.6 g/dL 3.2-5.0 [facility] Work Phone: Serum or plasma albumin/glob ulin mass ratioon 01-17-2022 Albumin/Globulin [Mass ratio] 1.0 {ratio} 0.9-2.4 [facility] Work Phone: Serum or plasma calcium bernabe urement (mass/volume)on 01-17-2022 Calcium [Mass/Vol] 12.2 mg/dL 8.5-10.1 [facility] Work Phone: Serum or plasma creatinine m easurement (mass/volume)on 01-17-2022 Creatinine [Mass/Vol] 1.26 mg/dL 0.70-1.30 [facility] Work Phone: Comment on above: The validity of the calculated GFR & GFRAA in patients over 70 years has not been determined. Clinical correlation is essential. Serum or plasma urea nitroge n measurement (mass/volume)on 01-17-2022 Urea nitrogen [Mass/Vol] 39 mg/dL 7-18 [facility] Work Phone: Thin prep Papanicolaou smear with manual screeningon 01-17-2022 Thin prep Papanicolaou smear with manual screening 23 U/L 15-37 [facility] Work Phone: Thin prep Papanicolaou smear with manual screening 10 5-15 [facility] Work Phone: Basophil percentageon 2021 Chloride [Moles/Vol] 105 mmol/L 98-107 [facility] Work Phone: Glucose [Mass/Vol] 164 mg/dL 74-106 [facility] Work Phone: Comment on above: Fasting Glucose resu lt greater than or equal to 126 mg/dL suggests DIABETES MELLITUS per A.D.A. criteria. Potassium [Moles/Vol] 3.8 mmol/L 3.5-5.1 [facility] Work Phone: Sodium [Moles/Vol] 140 mmol/L 136-145 [facility] Work Phone: Laboratory - Chemistry and C hemistry - challengeon 11-24-2021 CO2 [Moles/Vol] 26.0 mmol/L 21.0-32.0 [facility] Work Phone: Urea nitrogen/Creatinine [Mass ratio] 25.2 mg/mg 10-20 [facility] Work Phone: Laboratory - Hematology and Cell countson 11-24-2021 HbA1c (Bld) [Mass fraction] 6.1 % 4.2-6.3 [facility] Work Phone: No Panel Informationon 11-24 Estimated Creatinine Clearance Calc 58.05 ml/min [facility] Work Phone: Estimated GFR (MDRD) Amer 71 mL/min >60 [facility] Work Phone: Comment on above: GFR Calc Estimated GFR (MDRD) Non-Af Amer 58 mL/min >60 [facility] Work Phone: Comment on above: Non- GFR Calc Serum or plasma calcium bernabe urement (mass/volume)on 11-24-2021 Calcium [Mass/Vol] 12.9 mg/dL 8.5-10.1 [facility] Work Phone: Comment on above: Critical Result(s) C alled at: 13:42:17 11/24/2021 by: Mateusz REEDC ([place]). Results read back by same. Serum or plasma creatinine m easurement (mass/volume)on 11-24-2021 Creatinine [Mass/Vol] 1.31 mg/dL 0.70-1.30 [facility] Work Phone: Comment on above: The validity of the calculated GFR & GFRAA in patients over 70 years has not been determined. Clinical correlation is essential. Serum or plasma urea nitroge n measurement (mass/volume)on 11-24-2021 Urea nitrogen [Mass/Vol] 33 mg/dL 7-18 [facility] Work Phone: Thin prep Papanicolaou smear with manual screeningon 11-24-2021 Thin prep Papanicolaou smear with manual screening 9 5-15 [facility] Work Phone: Basophil percentageon 2021 Chloride [Moles/Vol] 105 mmol/L 98-107 [facility] Work Phone: Glucose [Mass/Vol] 99 mg/dL 74-106 [facility] Work Phone: Potassium [Moles/Vol] 4.0 mmol/L 3.5-5.1 [facility] Work Phone: Sodium [Moles/Vol] 138 mmol/L 136-145 [facility] Work Phone: Laboratory - Chemistry and C hemistry - challengeon 2021 CO2 [Moles/Vol] 28.0 mmol/L 21.0-32.0 [facility] Work Phone: Urea nitrogen/Creatinine [Mass ratio] 18.1 mg/mg 10-20 [facility] Work Phone: No Panel Informationon 11-15 Estimated GFR (MDRD) Amer 81 mL/min >60 [facility] Work Phone: Comment on above: GFR Calc Estimated GFR (MDRD) Non-Af Amer 67 mL/min >60 [facility] Work Phone: Comment on above: Non- GFR Calc Vitamin D 25-Hydroxy 30.1 ng/mL [facility] Work Phone: Comment on above: Vitamin D 25(OH) Sta tus Range Deficiency <20 ng/mL (50nmol/L) Insufficiency 20 - 30 ng/mL (50 - 75 nmol/L) Sufficiency 30 - 100 ng/mL (75 - 250 nmol/L) Toxicity >100 ng/mL (>250 nmol/L) Serum or plasma calcium bernabe urement (mass/volume)on 2021 Calcium [Mass/Vol] 12.9 mg/dL 8.5-10.1 [facility] Work Phone: Comment on above: Critical Result(s) C alled at: 16:12:00 2021 by: Brent Patton to Sarah HOBBS. Results read back by same. Serum or plasma creatinine m easurement (mass/volume)on 2021 Creatinine [Mass/Vol] 1.16 mg/dL 0.70-1.30 [facility] Work Phone: Comment on above: The validity of the calculated GFR & GFRAA in patients over 70 years has not been determined. Clinical correlation is essential. Serum or plasma urea nitroge n measurement (mass/volume)on 2021 Urea nitrogen [Mass/Vol] 21 mg/dL 7-18 [facility] Work Phone: Thin prep Papanicolaou smear with manual screeningon 2021 Thin prep Papanicolaou smear with manual screening 5 5-15 [facility] Work Phone: Absolute lymphocyte counton 10-15-2021 Lymphocytes Auto (Unsp spec) [#/Vol] 0.56 10*3/uL 0.83-4.51 [facility] Work Phone: Basophil percentageon 2021 Basophil percentage 2.2 mg/dL 2.5-4.9 [facility] Work Phone: Basophils/100 WBC (Bld) 0.3 % 0-1 [facility] Work Phone: Chloride [Moles/Vol] 107 mmol/L 98-107 [facility] Work Phone: Eosinophils/100 WBC (Bld) 2.2 % 0-5 [facility] Work Phone: Glucose [Mass/Vol] 206 mg/dL 74-106 [facility] Work Phone: Comment on above: Glucose result great er than or equal to 200 mg/dLsuggests DIABETES MELLITUS per A.D.A. criteria. Neutrophils (Bld) [#/Vol] 5.6 10*3/uL 2.0-7.7 [facility] Work Phone: Neutrophils/100 WBC (Bld) 75.0 % 47-70 [facility] Work Phone: Potassium [Moles/Vol] 3.1 mmol/L 3.5-5.1 [facility] Work Phone: Sodium [Moles/Vol] 140 mmol/L 136-145 [facility] Work Phone: WBC (Bld) [#/Vol] 7.4 10*3/uL 4.4-11.0 [facility] Work Phone: Blood erythrocytes count (nu mber/volume)on 10-15-2021 RBC (Bld) [#/Vol] 4.18 10*6/uL 4.6-6.2 [facility] Work Phone: Blood hemoglobin measurement (mass/volume)on 10-15-2021 Hemoglobin (Bld) [Mass/Vol] 12.6 g/dL 13.0-16.5 [facility] Work Phone: Blood lymphocytes/100 leukoc yteson 10-15-2021 Lymphocytes/100 WBC (Bld) 7.6 % 19-41 [facility] Work Phone: Blood manual differential co mment interpretation (narrative result)on 10-15-2021 Manual differential comment Jagdeep (Bld) [Interp] SCANNED [facility] Work Phone: Comment on above: LYMPHOPENIA NOTED Blood monocytes/100 leukocyt eson 10-15-2021 Monocytes/100 WBC (Bld) 14.5 % 0-10 [facility] Work Phone: Blood platelet mean volumeon 10-15-2021 Platelet mean volume (Bld) [Entitic vol] 9.8 fL 6.2-12.0 [facility] Work Phone: Determination of erythrocyte mean corpuscular volume (MCV)on 10-15-2021 MCV (RBC) [Entitic vol] 89.2 fL 80-94 [facility] Work Phone: Glucose Glucometer (BldC) [M ass/Vol]on 10-15-2021 Glucose [Mass/Vol] 271 mg/dL 74-106 [facility] Work Phone: Comment on above: MANAGEMENT OF PATIEN T CARE PER NURSING PROTOCOL Hematocrit Auto (Bld) [Volum e fraction]on 10-15-2021 Hematocrit (Bld) [Volume fraction] 37.3 % 40-54 [facility] Work Phone: Laboratory - Chemistry and C hemistry - challengeon 10-15-2021 CO2 [Moles/Vol] 28.0 mmol/L 21.0-32.0 [facility] Work Phone: Magnesium [Mass/Vol] 2.2 mg/dL 1.6-2.6 [facility] Work Phone: Urea nitrogen/Creatinine [Mass ratio] 18.9 mg/mg 10-20 [facility] Work Phone: Laboratory - Hematology and Cell countson 10-15-2021 Erythrocyte distribution width (RBC) [Entitic vol] 47.3 fL 35.1-43.9 [facility] Work Phone: Erythrocyte distribution width (RBC) [Ratio] 14.6 % 11.6-14.6 [facility] Work Phone: Immature granulocytes/100 WBC (Bld) 0.400 % 0.0-0.9 [facility] Work Phone: Comment on above: IG% - Immature Granu locytes (promyelocytes, myelocytes and metamyelocytes) > 1% indicates that a LEFT SHIFT is Present. MCH (RBC) [Entitic mass] 30.1 pg 27.0-32.0 [facility] Work Phone: Nucleated RBC/100 WBC (Bld) [Ratio] 0 % 0-5 [facility] Work Phone: MCHC Auto (RBC) [Mass/Vol]on 10-15-2021 MCHC (RBC) [Mass/Vol] 33.8 g/dL 32-36 [facility] Work Phone: No Panel Informationon 10-15 Estimated Creatinine Clearance Calc 90.65 ml/min [facility] Work Phone: Estimated GFR (MDRD) Amer 117 mL/min >60 [facility] Work Phone: Comment on above: GFR Calc Estimated GFR (MDRD) Non-Af Amer 96 mL/min >60 [facility] Work Phone: Comment on above: Non- GFR Calc Platelets bldon 10-15-2021 Platelets (Bld) [#/Vol] 252 10*3/uL 150-450 [facility] Work Phone: Serum or plasma calcium bernabe urement (mass/volume)on 10-15-2021 Calcium [Mass/Vol] 12.1 mg/dL 8.5-10.1 [facility] Work Phone: Serum or plasma creatinine m easurement (mass/volume)on 10-15-2021 Creatinine [Mass/Vol] 0.85 mg/dL 0.70-1.30 [facility] Work Phone: Comment on above: The validity of the calculated GFR & GFRAA in patients over 70 years has not been determined. Clinical correlation is essential. Serum or plasma urea nitroge n measurement (mass/volume)on 10-15-2021 Urea nitrogen [Mass/Vol] 16 mg/dL 7-18 [facility] Work Phone: Thin prep Papanicolaou smear with manual screeningon 10-15-2021 Thin prep Papanicolaou smear with manual screening 5 5-15 [facility] Work Phone: Basophil percentageon 2021 Bilirubin [Mass/Vol] 0.70 mg/dL 0.20-1.00 [facility] Work Phone: Comment on above: For patients on eltr ombopag therapy, use of Dimension [place] TBIL is not recommended. Protein [Mass/Vol] 6.4 g/dL 6.4-8.2 [facility] Work Phone: Laboratory - Chemistry and C hemistry - challengeon 10-13-2021 ALP [Catalytic activity/Vol] 56 U/L 45-117 [facility] Work Phone: ALT [Catalytic activity/Vol] 40 U/L 16-61 [facility] Work Phone: Globulin (S) [Mass/Vol] 3.0 g/dL 2.2-4.2 [facility] Work Phone: Serum or plasma albumin bernabe urement (mass/volume)on 10-13-2021 Albumin [Mass/Vol] 3.4 g/dL 3.2-5.0 [facility] Work Phone: Serum or plasma albumin/glob ulin mass ratioon 10-13-2021 Albumin/Globulin [Mass ratio] 1.1 {ratio} 0.9-2.4 [facility] Work Phone: Thin prep Papanicolaou smear with manual screeningon 10-13-2021 Thin prep Papanicolaou smear with manual screening 17 U/L 15-37 [facility] Work Phone: Basophil percentageon 2021 Cholesterol [Mass/Vol] 123 mg/dL <200 [facility] Work Phone: Comment on above: <200 mg/dL Desirable 200-240 mg/dL Borderline >240 mg/dL High Risk Triglyceride [Mass/Vol] 184 mg/dL <199 [facility] Work Phone: Comment on above: The drugs N-Acetylcy steine and Metamizole may falsely depress this assay.Serum Triglycerides Reference Interval Normal <150 mg/dL Borderline high 150 - 199 mg/dL High 200 - 499 mg/dL Very High > or = 500 mg/dL No Panel Informationon 10-11 Troponin I High Sensitivity 45 pg/mL 3.0-78.0 [facility] Work Phone: Comment on above: Please Note: New Kym t Units and Gender Specific Reference Ranges. For more information see Policy Stat Procedure [place] High Sensitivity Troponin (TNIH) and attachments. Serum or plasma cholesterol in HDL measurement (mass/volume)on 10-11-2021 Cholesterol in HDL [Mass/Vol] 28 mg/dL >40 [facility] Work Phone: Comment on above: The drugs N-Acetylcy steine and Metamizole may falsely depress this assay. Reference Range HDL <40 mg/dL Low HDL Cholesterol HDL >or= 60 mg/dL High HDL Cholesterol Serum or plasma cholesterol in VLDL measurement (mass/volume)on 10-11-2021 Cholesterol in VLDL [Mass/Vol] 37 mg/dL 5-40 [facility] Work Phone: Serum or plasma low density lipoprotein (LDL) cholesterol measurement (mass/volume)on 10-11-2021 Cholesterol in LDL [Mass/Vol] 58 mg/dL 0-130 [facility] Work Phone: Absolute lymphocyte counton 10-10-2021 Lymphocytes Auto (Unsp spec) [#/Vol] 0.98 10*3/uL 0.83-4.51 [facility] Work Phone: Basophil percentageon 2021 Basophils/100 WBC (Bld) 0.5 % 0-1 [facility] Work Phone: Chloride [Moles/Vol] 106 mmol/L 98-107 [facility] Work Phone: Eosinophils/100 WBC (Bld) 2.5 % 0-5 [facility] Work Phone: Glucose [Mass/Vol] 115 mg/dL 74-106 [facility] Work Phone: Comment on above: Fasting Glucose resu lt from 100 to 125 mg/dL suggests IMPAIRED HOMEOSTASIS per A.D.A. criteria. Neutrophils (Bld) [#/Vol] 5.3 10*3/uL 2.0-7.7 [facility] Work Phone: Neutrophils/100 WBC (Bld) 70.5 % 47-70 [facility] Work Phone: [phone] Potassium [Moles/Vol] 4.2 mmol/L 3.5-5.1 [facility] Work Phone: Comment on above: Moderate Hemolysis, Result may be falsely increased. Sodium [Moles/Vol] 139 mmol/L 136-145 [facility] Work Phone: WBC (Bld) [#/Vol] 7.5 10*3/uL 4.4-11.0 [facility] Work Phone: Blood erythrocytes count (nu mber/volume)on 10-10-2021 RBC (Bld) [#/Vol] 5.10 10*6/uL 4.6-6.2 [facility] Work Phone: Blood hemoglobin measurement (mass/volume)on 10-10-2021 Hemoglobin (Bld) [Mass/Vol] 15.2 g/dL 13.0-16.5 [facility] Work Phone: Blood lymphocytes/100 leukoc yteson 10-10-2021 Lymphocytes/100 WBC (Bld) 13.0 % 19-41 [facility] Work Phone: Blood monocytes/100 leukocyt eson 10-10-2021 Monocytes/100 WBC (Bld) 12.8 % 0-10 [facility] Work Phone: Blood platelet mean volumeon 10-10-2021 Platelet mean volume (Bld) [Entitic vol] 10.0 fL 6.2-12.0 [facility] Work Phone: Determination of erythrocyte mean corpuscular volume (MCV)on 10-10-2021 MCV (RBC) [Entitic vol] 91.8 fL 80-94 [facility] Work Phone: Hematocrit Auto (Bld) [Volum e fraction]on 10-10-2021 Hematocrit (Bld) [Volume fraction] 46.8 % 40-54 [facility] Work Phone: Laboratory - Chemistry and C hemistry - challengeon 10-10-2021 Magnesium [Mass/Vol] 2.1 mg/dL 1.6-2.6 [facility] Work Phone: CO2 [Moles/Vol] 26.0 mmol/L 21.0-32.0 [facility] Work Phone: Natriuretic peptide B (Bld) [Mass/Vol] 77.2 pg/mL 0-100 [facility] Work Phone: Urea nitrogen/Creatinine [Mass ratio] 16.3 mg/mg 10-20 [facility] Work Phone: Laboratory - Hematology and Cell countson 10-10-2021 Erythrocyte distribution width (RBC) [Entitic vol] 51.2 fL 35.1-43.9 [facility] Work Phone: Erythrocyte distribution width (RBC) [Ratio] 15.2 % 11.6-14.6 [facility] Work Phone: Immature granulocytes/100 WBC (Bld) 0.700 % 0.0-0.9 [facility] Work Phone: Comment on above: IG% - Immature Granu locytes (promyelocytes, myelocytes and metamyelocytes) > 1% indicates that a LEFT SHIFT is Present. MCH (RBC) [Entitic mass] 29.8 pg 27.0-32.0 [facility] Work Phone: Nucleated RBC/100 WBC (Bld) [Ratio] 0 % 0-5 [facility] Work Phone: MCHC Auto (RBC) [Mass/Vol]on 10-10-2021 MCHC (RBC) [Mass/Vol] 32.5 g/dL 32-36 [facility]: No Panel Informationon 10-10 Troponin I High Sensitivity 37 pg/mL 3.0-78.0 [facility] Work Phone: Comment on above: Please Note: New Kym t Units and Gender Specific Reference Ranges. For more information see Policy Stat Procedure [place] High Sensitivity Troponin (TNIH) and attachments. Estimated Creatinine Clearance Calc 74.09 ml/min [facility] Work Phone: Estimated GFR (MDRD) Amer 92 mL/min >60 [facility] Work Phone: Comment on above: GFR Calc Estimated GFR (MDRD) Non-Af Amer 76 mL/min >60 [facility] Work Phone: Comment on above: Non- GFR Calc Platelets bldon 10-10-2021 Platelets (Bld) [#/Vol] 273 10*3/uL 150-450 [facility] Work Phone: Serum or plasma calcium bernabe urement (mass/volume)on 10-10-2021 Calcium [Mass/Vol] 13.1 mg/dL 8.5-10.1 [facility] Work Phone: Comment on above: Critical Result(s) C alled at: 21:50:47 10/10/2021 by: Barbra Velasquez to [email or web address]. Results read back by same. Serum or plasma creatinine m easurement (mass/volume)on 10-10-2021 Creatinine [Mass/Vol] 1.04 mg/dL 0.70-1.30 [facility] Work Phone: Comment on above: The validity of the calculated GFR & GFRAA in patients over 70 years has not been determined. Clinical correlation is essential. Serum or plasma urea nitroge n measurement (mass/volume)on 10-10-2021 Urea nitrogen [Mass/Vol] 17 mg/dL 7-18 [facility] Work Phone: Thin prep Papanicolaou smear with manual screeningon 10-10-2021 Thin prep Papanicolaou smear with manual screening 7 5-15 [facility] Work Phone: Basophil percentageon 2021 Chloride [Moles/Vol] 104 mmol/L 98-107 [facility] Work Phone: Glucose [Mass/Vol] 123 mg/dL 74-106 [facility] Work Phone: Comment on above: Fasting Glucose resu lt from 100 to 125 mg/dL suggests IMPAIRED HOMEOSTASIS per A.D.A. criteria. Potassium [Moles/Vol] 3.7 mmol/L 3.5-5.1 [facility] Work Phone: Sodium [Moles/Vol] 139 mmol/L 136-145 [facility] Work Phone: Laboratory - Chemistry and C hemistry - challengeon 10-05-2021 CO2 [Moles/Vol] 28.0 mmol/L 21.0-32.0 [facility] Work Phone: Urea nitrogen/Creatinine [Mass ratio] 20.7 mg/mg 10-20 [facility] Work Phone: No Panel Informationon 10-05 Estimated GFR (MDRD) Amer 100 mL/min >60 [facility] Work Phone: Comment on above: GFR Calc Estimated GFR (MDRD) Non-Af Amer 83 mL/min >60 [facility] Work Phone: Comment on above: Non- GFR Calc Parathyroid Hormone (Intact) 170.8 pg/mL 18.4-80.1 [facility] Work Phone: Vitamin D 25-Hydroxy 25.0 ng/mL [facility] Work Phone: Comment on above: Vitamin D 25(OH) Sta tus Range Deficiency <20 ng/mL (50nmol/L) Insufficiency 20 - 30 ng/mL (50 - 75 nmol/L) Sufficiency 30 - 100 ng/mL (75 - 250 nmol/L) Toxicity >100 ng/mL (>250 nmol/L) Serum or plasma calcium bernabe urement (mass/volume)on 10-05-2021 Calcium [Mass/Vol] 12.8 mg/dL 8.5-10.1 [facility] Work Phone: Comment on above: Critical Result(s) C alled at: 16:35:19 10/05/2021 by: Selena Rain to Chela Burton RN. Results read back by same. Serum or plasma creatinine m easurement (mass/volume)on 10-05-2021 Creatinine [Mass/Vol] 0.97 mg/dL 0.70-1.30 [facility] Work Phone: Comment on above: The validity of the calculated GFR & GFRAA in patients over 70 years has not been determined. Clinical correlation is essential. Serum or plasma urea nitroge n measurement (mass/volume)on 10-05-2021 Urea nitrogen [Mass/Vol] 20 mg/dL 7-18 [facility] Work Phone: Thin prep Papanicolaou smear with manual screeningon 10-05-2021 Thin prep Papanicolaou smear with manual screening 7 5-15 [facility] Work Phone: Laboratory - Hematology and Cell countson 09-01-2021 HbA1c (Bld) [Mass fraction] 6.2 % 4.2-6.3 [facility] Work Phone: Absolute lymphocyte counton 08-23-2021 Lymphocytes Auto (Unsp spec) [#/Vol] 0.76 10*3/uL 0.83-4.51 [facility] Work Phone: Basophil percentageon 2021 Basophil percentage 0-5 SEEN /hpf 0-5 mady [facility] Work Phone: Basophil percentage 2.1 mg/dL 2.5-4.9 [facility] Work Phone: Basophils/100 WBC (Bld) 0.4 % 0-1 [facility] Work Phone: Eosinophils/100 WBC (Bld) 2.1 % 0-5 [facility] Work Phone: Neutrophils (Bld) [#/Vol] 5.7 10*3/uL 2.0-7.7 [facility] Work Phone: Neutrophils/100 WBC (Bld) 75.7 % 47-70 [facility] Work Phone: WBC (Bld) [#/Vol] 7.5 10*3/uL 4.4-11.0 [facility] Work Phone: Bilirubin [Mass/Vol] 0.50 mg/dL 0.20-1.00 [facility] Work Phone: Comment on above: For patients on eltr ombopag therapy, use of Dimension [place] TBIL is not recommended. Chloride [Moles/Vol] 104 mmol/L 98-107 [facility] Work Phone: Glucose [Mass/Vol] 152 mg/dL 74-106 [facility] Work Phone: Comment on above: Fasting Glucose resu lt greater than or equal to 126 mg/dL suggests DIABETES MELLITUS per A.D.A. criteria. Potassium [Moles/Vol] 4.3 mmol/L 3.5-5.1 [facility] Work Phone: Protein [Mass/Vol] 7.5 g/dL 6.4-8.2 [facility] Work Phone: Sodium [Moles/Vol] 140 mmol/L 136-145 [facility] Work Phone: Bilirubin Test strip Ql (U)o n 08-23-2021 Bilirubin Ql (U) Negative Negative [facility] Work Phone: Blood erythrocytes count (nu mber/volume)on 08-23-2021 RBC (Bld) [#/Vol] 4.90 10*6/uL 4.6-6.2 [facility] Work Phone: Blood hemoglobin measurement (mass/volume)on 08-23-2021 Hemoglobin (Bld) [Mass/Vol] 14.4 g/dL 13.0-16.5 [facility] Work Phone: Blood lymphocytes/100 leukoc yteson 08-23-2021 Lymphocytes/100 WBC (Bld) 10.1 % 19-41 [facility] Work Phone: Blood monocytes/100 leukocyt eson 08-23-2021 Monocytes/100 WBC (Bld) 11.2 % 0-10 [facility] Work Phone: Blood platelet mean volumeon 08-23-2021 Platelet mean volume (Bld) [Entitic vol] 9.5 fL 6.2-12.0 [facility] Work Phone: Determination of erythrocyte mean corpuscular volume (MCV)on 08-23-2021 MCV (RBC) [Entitic vol] 91.6 fL 80-94 [facility] Work Phone: Hematocrit Auto (Bld) [Volum e fraction]on 08-23-2021 Hematocrit (Bld) [Volume fraction] 44.9 % 40-54 [facility] Work Phone: Ketones Test strip Ql (U)on 08-23-2021 Ketones Ql (U) Negative Negative [facility] Work Phone: Laboratory - Chemistry and C hemistry - challengeon 08-23-2021 Magnesium [Mass/Vol] 2.2 mg/dL 1.6-2.6 [facility] Work Phone: ALP [Catalytic activity/Vol] 90 U/L 45-117 [facility] Work Phone: ALT [Catalytic activity/Vol] 65 U/L 16-61 [facility] Work Phone: CO2 [Moles/Vol] 30.0 mmol/L 21.0-32.0 [facility] Work Phone: Globulin (S) [Mass/Vol] 3.7 g/dL 2.2-4.2 [facility] Work Phone: Urea nitrogen/Creatinine [Mass ratio] 18.3 mg/mg 10-20 [facility] Work Phone: Laboratory - Hematology and Cell countson 08-23-2021 Erythrocyte distribution width (RBC) [Entitic vol] 51.3 fL 35.1-43.9 [facility] Work Phone: Erythrocyte distribution width (RBC) [Ratio] 15.5 % 11.6-14.6 [facility] Work Phone: Immature granulocytes/100 WBC (Bld) 0.500 % 0.0-0.9 [facility] Work Phone: Comment on above: IG% - Immature Granu locytes (promyelocytes, myelocytes and metamyelocytes) > 1% indicates that a LEFT SHIFT is Present. MCH (RBC) [Entitic mass] 29.4 pg 27.0-32.0 [facility] Work Phone: Nucleated RBC/100 WBC (Bld) [Ratio] 0 % 0-5 [facility] Work Phone: MCHC Auto (RBC) [Mass/Vol]on 08-23-2021 MCHC (RBC) [Mass/Vol] 32.1 g/dL 32-36 [facility] Work Phone: Mucus LM Ql (Urine sed)on Mucus Ql (Urine sed) 0 SEEN /hpf [facility] Work Phone: Nitrite Test strip Ql (U)on 08-23-2021 Nitrite Ql (U) Negative Negative [facility] Work Phone: No Panel Informationon 08-23 Estimated GFR (MDRD) Amer 98 mL/min >60 [facility] Work Phone: Comment on above: GFR Calc Estimated GFR (MDRD) Non-Af Amer 81 mL/min >60 [facility] Work Phone: Comment on above: Non- GFR Calc Parathyroid Hormone (Intact) 170.6 pg/mL 18.4-80.1 [facility] Work Phone: Vitamin D 25-Hydroxy 30.5 ng/mL [facility] Work Phone: Comment on above: Vitamin D 25(OH) Sta tus Range Deficiency <20 ng/mL (50nmol/L) Insufficiency 20 - 30 ng/mL (50 - 75 nmol/L) Sufficiency 30 - 100 ng/mL (75 - 250 nmol/L) Toxicity >100 ng/mL (>250 nmol/L) Platelets bldon 08-23-2021 Platelets (Bld) [#/Vol] 288 10*3/uL 150-450 [facility] Work Phone: Protein Test strip Ql (U)on 08-23-2021 Protein Ql (U) Negative Negative [facility] Work Phone: Serum or plasma albumin bernabe urement (mass/volume)on 08-23-2021 Albumin [Mass/Vol] 3.8 g/dL 3.2-5.0 [facility] Work Phone: Serum or plasma albumin/glob ulin mass ratioon 08-23-2021 Albumin/Globulin [Mass ratio] 1.0 {ratio} 0.9-2.4 [facility] Work Phone: Serum or plasma calcium bernabe urement (mass/volume)on 08-23-2021 Calcium [Mass/Vol] 13.2 mg/dL 8.5-10.1 [facility] Work Phone: Comment on above: Critical Result(s) C alled at: 13:07:25 08/23/2021 by: Meg Gunter. Results read back by same. Serum or plasma creatinine m easurement (mass/volume)on 08-23-2021 Creatinine [Mass/Vol] 0.98 mg/dL 0.70-1.30 [facility] Work Phone: Comment on above: The validity of the calculated GFR & GFRAA in patients over 70 years has not been determined. Clinical correlation is essential. Serum or plasma urea nitroge n measurement (mass/volume)on 08-23-2021 Urea nitrogen [Mass/Vol] 18 mg/dL 7-18 [facility] Work Phone: Squamous epithelial cells de tection in urine sediment by light microscopyon 08-23-2021 Epithelial cells.squamous LM Ql (Urine sed) 0 SEEN /hpf 0-5 [facility] Work Phone: Thin prep Papanicolaou smear with manual screeningon 08-23-2021 Thin prep Papanicolaou smear with manual screening 32 U/L 15-37 [facility] Work Phone: Thin prep Papanicolaou smear with manual screening 6 5-15 [facility] Work Phone: Urine blood detectionon 08-08 RBC Ql (U) 25 /ul Negative [facility] Work Phone: RBC Ql (U) 0-5 SEEN /hpf 0-5 [facility] Work Phone: Urine clarityon 08-23-2021 Clarity (U) Clear Clear [facility] Work Phone: Urine color determinationon 08-23-2021 Color (U) Yellow Yellow [facility] Work Phone: Urine glucose detectionon Glucose Ql (U) 1000 mg/dl Normal [facility] Work Phone: Urine leukocyte esterase det ection by dipstickon 08-23-2021 Leukocyte esterase Test strip Ql (U) Negative Negative [facility] Work Phone: Urine pHon 08-23-2021 pH (U) 6.5 [pH] 5.0 - 8.0 [facility] Work Phone: Urine sediment bacteria coun t by microscopy (number/high power field)on 08-23-2021 Bacteria LM.HPF (Urine sed) [#/Area] 0 /[HPF] None Seen [facility] Work Phone: Urine specific gravity measu rementon 08-23-2021 Specific gravity (U) [Rel density] 1.015 1.002-1.03 0 [facility] Work Phone: Urobilinogen Auto test strip Ql (U)on 08-23-2021 Urobilinogen Ql (U) 1 mg/dl Normal [facility] Work Phone: Basophil percentageon 2021 Basophil percentage 2.4 mg/dL 2.5-4.9 [facility] Work Phone: Chloride [Moles/Vol] 106 mmol/L 98-107 [facility] Work Phone: Glucose [Mass/Vol] 217 mg/dL 74-106 [facility] Work Phone: Comment on above: Glucose result great er than or equal to 200 mg/dLsuggests DIABETES MELLITUS per A.D.A. criteria. Potassium [Moles/Vol] 3.6 mmol/L 3.5-5.1 [facility] Work Phone: Sodium [Moles/Vol] 139 mmol/L 136-145 [facility] Work Phone: Glucose Glucometer (BldC) [M ass/Vol]on 07-30-2021 Glucose [Mass/Vol] 223 mg/dL 74-106 [facility] Work Phone: Comment on above: MANAGEMENT OF PATIEN T CARE PER NURSING PROTOCOL Laboratory - Chemistry and C hemistry - challengeon 07-30-2021 CO2 [Moles/Vol] 27.0 mmol/L 21.0-32.0 [facility] Work Phone: Magnesium [Mass/Vol] 2.2 mg/dL 1.6-2.6 [facility] Work Phone: Urea nitrogen/Creatinine [Mass ratio] 21.6 mg/mg 10-20 [facility] Work Phone: No Panel Informationon 07-30 Estimated Creatinine Clearance Calc 75.54 ml/min [facility] Work Phone: Estimated GFR (MDRD) Amer 94 mL/min >60 [facility] Work Phone: Comment on above: GFR Calc Estimated GFR (MDRD) Non-Af Amer 78 mL/min >60 [facility] Work Phone: Comment on above: Non- GFR Calc Serum or plasma albumin bernabe urement (mass/volume)on 07-30-2021 Albumin [Mass/Vol] 3.0 g/dL 3.2-5.0 [facility] Work Phone: Serum or plasma calcium bernabe urement (mass/volume)on 07-30-2021 Calcium [Mass/Vol] 11.4 mg/dL 8.5-10.1 [facility] Work Phone: Serum or plasma creatinine m easurement (mass/volume)on 07-30-2021 Creatinine [Mass/Vol] 1.02 mg/dL 0.70-1.30 [facility] Work Phone: Comment on above: The validity of the calculated GFR & GFRAA in patients over 70 years has not been determined. Clinical correlation is essential. Serum or plasma urea nitroge n measurement (mass/volume)on 07-30-2021 Urea nitrogen [Mass/Vol] 22 mg/dL 7-18 [facility] Work Phone: Thin prep Papanicolaou smear with manual screeningon 07-30-2021 Thin prep Papanicolaou smear with manual screening 6 5-15 [facility] Work Phone: Absolute lymphocyte counton 07-27-2021 Lymphocytes Auto (Unsp spec) [#/Vol] 0.39 10*3/uL 0.83-4.51 [facility] Work Phone: Lymphocytes Auto (Unsp spec) [#/Vol] 0.37 10*3/uL 0.83-4.51 [facility] Work Phone: Basophil percentageon 2021 Basophils/100 WBC (Bld) 0.1 % 0-1 [facility] Work Phone: Bilirubin [Mass/Vol] 1.00 mg/dL 0.20-1.00 [facility] Work Phone: Comment on above: For patients on eltr ombopag therapy, use of Dimension [place] TBIL is not recommended. Eosinophils/100 WBC (Bld) 0.2 % 0-5 [facility] Work Phone: Neutrophils (Bld) [#/Vol] 10.9 10*3/uL 2.0-7.7 [facility] Work Phone: Neutrophils/100 WBC (Bld) 85.4 % 47-70 [facility] Work Phone: Protein [Mass/Vol] 7.1 g/dL 6.4-8.2 [facility] Work Phone: WBC (Bld) [#/Vol] 12.7 10*3/uL 4.4-11.0 [facility] Work Phone: Basophils/100 WBC (Bld) 0.2 % 0-1 [facility] Work Phone: Bilirubin [Mass/Vol] 1.10 mg/dL 0.20-1.00 [facility] Work Phone: Comment on above: For patients on eltr ombopag therapy, use of Dimension [place] TBIL is not recommended. Chloride [Moles/Vol] 106 mmol/L 98-107 [facility] Work Phone: Eosinophils/100 WBC (Bld) 0.2 % 0-5 [facility] Work Phone: [phone] Glucose [Mass/Vol] 168 mg/dL 74-106 [facility] Work Phone: Comment on above: Fasting Glucose resu lt greater than or equal to 126 mg/dL suggests DIABETES MELLITUS per A.D.A. criteria. Neutrophils (Bld) [#/Vol] 11.9 10*3/uL 2.0-7.7 [facility] Work Phone: [phone] Neutrophils/100 WBC (Bld) 86.6 % 47-70 [facility] Work Phone: Potassium [Moles/Vol] 4.7 mmol/L 3.5-5.1 [facility] Work Phone: Protein [Mass/Vol] 7.5 g/dL 6.4-8.2 [facility] Work Phone: Sodium [Moles/Vol] 136 mmol/L 136-145 [facility] Work Phone: [phone] WBC (Bld) [#/Vol] 13.8 10*3/uL 4.4-11.0 [facility] Work Phone: Blood erythrocytes count (nu mber/volume)on 07-27-2021 RBC (Bld) [#/Vol] 4.86 10*6/uL 4.6-6.2 [facility] Work Phone: RBC (Bld) [#/Vol] 5.21 10*6/uL 4.6-6.2 [facility] Work Phone: [phone] Blood hemoglobin measurement (mass/volume)on 07-27-2021 Hemoglobin (Bld) [Mass/Vol] 14.1 g/dL 13.0-16.5 [facility] Work Phone: [phone] Hemoglobin (Bld) [Mass/Vol] 15.2 g/dL 13.0-16.5 [facility] Work Phone: [phone] Blood lymphocytes/100 leukoc yteson 07-27-2021 Lymphocytes/100 WBC (Bld) 3.1 % [facility] Work Phone: [phone] Lymphocytes/100 WBC (Bld) 2.7 % [facility] Work Phone: [phone] Blood manual differential co mment interpretation (narrative result)on 07-27-2021 Manual differential comment Jagdeep (Bld) [Interp] SCANNED [facility] Work Phone: Manual differential comment Jagdeep (Bld) [Interp] SCANNED [facility] Work Phone: Blood monocytes/100 leukocyt eson 07-27-2021 Monocytes/100 WBC (Bld) 10.4 % 0-10 [facility] Work Phone: Monocytes/100 WBC (Bld) 9.8 % 0-10 [facility] Work Phone: Blood platelet mean volumeon 07-27-2021 Platelet mean volume (Bld) [Entitic vol] 9.4 fL 6.2-12.0 [facility] Work Phone: Platelet mean volume (Bld) [Entitic vol] 8.9 fL 6.2-12.0 [facility] Work Phone: Determination of erythrocyte mean corpuscular volume (MCV)on 07-27-2021 MCV (RBC) [Entitic vol] 89.5 fL 80-94 [facility] Work Phone: MCV (RBC) [Entitic vol] 89.1 fL 80-94 [facility] Work Phone: [phone] Hematocrit Auto (Bld) [Volum e fraction]on 07-27-2021 Hematocrit (Bld) [Volume fraction] 43.5 % 40-54 [facility] Work Phone: Hematocrit (Bld) [Volume fraction] 46.4 % 40-54 [facility] Work Phone: [phone] Laboratory - Chemistry and C hemistry - challengeon 07-27-2021 ALP [Catalytic activity/Vol] 67 U/L 45-117 [facility] Work Phone: [phone] ALT [Catalytic activity/Vol] 31 U/L 16- [facility] Work Phone: Globulin (S) [Mass/Vol] 3.8 g/dL 2.2-4.2 [facility] Work Phone: ALP [Catalytic activity/Vol] 71 U/L 45-117 [facility] Work Phone: [phone] ALT [Catalytic activity/Vol] 35 U/L 16-61 [facility] Work Phone: CO2 [Moles/Vol] 23.0 mmol/L 21.0-32.0 [facility] Work Phone: [phone] Globulin (S) [Mass/Vol] 4.0 g/dL 2.2-4.2 [facility] Work Phone: Urea nitrogen/Creatinine [Mass ratio] 27.3 mg/mg 10-20 [facility] Work Phone: [phone] Laboratory - Hematology and Cell countson 07-27-2021 Erythrocyte distribution width (RBC) [Entitic vol] 50.6 fL 35.1-43.9 [facility] Work Phone: Erythrocyte distribution width (RBC) [Ratio] 15.4 % 11.6-14.6 [facility] Work Phone: Immature granulocytes/100 WBC (Bld) 0.800 % 0.0-0.9 [facility] Work Phone: Comment on above: IG% - Immature Granu locytes (promyelocytes, myelocytes and metamyelocytes) > 1% indicates that a LEFT SHIFT is Present. MCH (RBC) [Entitic mass] 29.0 pg 27.0-32.0 [facility] Work Phone: Nucleated RBC/100 WBC (Bld) [Ratio] 0 % 0-5 [facility] Work Phone: Erythrocyte distribution width (RBC) [Entitic vol] 50.2 fL 35.1-43.9 [facility] Work Phone: Erythrocyte distribution width (RBC) [Ratio] 15.5 % 11.6-14.6 [facility] Work Phone: Immature granulocytes/100 WBC (Bld) 0.500 % 0.0-0.9 [facility] Work Phone: Comment on above: IG% - Immature Granu locytes (promyelocytes, myelocytes and metamyelocytes) > 1% indicates that a LEFT SHIFT is Present. MCH (RBC) [Entitic mass] 29.2 pg 27.0-32.0 [facility] Work Phone: [phone] Nucleated RBC/100 WBC (Bld) [Ratio] 0 % 0-5 [facility] Work Phone: MCHC Auto (RBC) [Mass/Vol]on 07-27-2021 MCHC (RBC) [Mass/Vol] 32.4 g/dL [facility] Work Phone: MCHC (RBC) [Mass/Vol] 32.8 g/dL -36 [facility] Work Phone: No Panel Informationon 07-27 Troponin I High Sensitivity 16 pg/mL 3.0-78.0 [facility] Work Phone: Comment on above: Please Note: New Kym t Units and Gender Specific Reference Ranges. For more information see Policy Stat Procedure [place] High Sensitivity Troponin (TNIH) and attachments. Estimated Creatinine Clearance Calc 70.05 ml/min [facility] Work Phone: Estimated GFR (MDRD) Amer 87 mL/min >60 [facility] Work Phone: Comment on above: GFR Calc Estimated GFR (MDRD) Non-Af Amer 72 mL/min >60 [facility] Work Phone: Comment on above: Non- GFR Calc Platelets bldon 07-27-2021 Platelets (Bld) [#/Vol] 299 10*3/uL 150-450 [facility] Work Phone: Platelets (Bld) [#/Vol] 312 10*3/uL 150-450 [facility] Work Phone: Serum or plasma albumin bernabe urement (mass/volume)on 07-27-2021 Albumin [Mass/Vol] 3.5 g/dL 3.2-5.0 [facility] Work Phone: Serum or plasma albumin/glob ulin mass ratioon 07-27-2021 Albumin/Globulin [Mass ratio] 0.9 {ratio} 0.9-2.4 [facility] Work Phone: Albumin/Globulin [Mass ratio] 0.9 {ratio} 0.9-2.4 [facility] Work Phone: Serum or plasma calcium bernabe urement (mass/volume)on 07-27-2021 Calcium [Mass/Vol] 12.7 mg/dL 8.5-10.1 [facility] Work Phone: Comment on above: Critical Result(s) C alled at: 01:43:00 07/27/2021 by: JIMMY Jackson RN ER. Results read back by same. Serum or plasma creatinine m easurement (mass/volume)on 07-27-2021 Creatinine [Mass/Vol] 1.10 mg/dL 0.70-1.30 [facility] Work Phone: Comment on above: The validity of the calculated GFR & GFRAA in patients over 70 years has not been determined. Clinical correlation is essential. Serum or plasma urea nitroge n measurement (mass/volume)on 07-27-2021 Urea nitrogen [Mass/Vol] 30 mg/dL 7-18 [facility] Work Phone: Thin prep Papanicolaou smear with manual screeningon 07-27-2021 Thin prep Papanicolaou smear with manual screening 15 U/L 15-37 [facility] Work Phone: Thin prep Papanicolaou smear with manual screening 26 U/L 15-37 [facility] Work Phone: Thin prep Papanicolaou smear with manual screening 7 5-15 [facility] Work Phone: Absolute lymphocyte counton 06-08-2021 Lymphocytes Auto (Unsp spec) [#/Vol] 0.64 10*3/uL 0.83-4.51 [facility] Work Phone: Amorphous sediment detection in urine sediment by light microscopyon 06-08-2021 Amorphous sediment LM Ql (Urine sed) 2+ PHOS [facility] Work Phone: Basophil percentageon 2021 Basophil percentage 5-10 SEEN /hpf [facility] Work Phone: Basophils/100 WBC (Bld) 0.4 % 0-1 [facility] Work Phone: Chloride [Moles/Vol] 107 mmol/L 98-107 [facility] Work Phone: Eosinophils/100 WBC (Bld) 0.4 % 0-5 [facility] Work Phone: Glucose [Mass/Vol] 112 mg/dL 74-106 [facility] Work Phone: Comment on above: Fasting Glucose resu lt from 100 to 125 mg/dL suggests IMPAIRED HOMEOSTASIS per A.D.A. criteria. Neutrophils (Bld) [#/Vol] 7.0 10*3/uL 2.0-7.7 [facility] Work Phone: Neutrophils/100 WBC (Bld) 76.0 % 47-70 [facility] Work Phone: Potassium [Moles/Vol] 4.0 mmol/L 3.5-5.1 [facility] Work Phone: Sodium [Moles/Vol] 140 mmol/L 136-145 [facility] Work Phone: WBC (Bld) [#/Vol] 9.2 10*3/uL 4.4-11.0 [facility] Work Phone: Bilirubin Test strip Ql (U)o n 06-08-2021 Bilirubin Ql (U) Negative Negative [facility] Work Phone: Blood erythrocytes count (nu mber/volume)on 06-08-2021 RBC (Bld) [#/Vol] 5.40 10*6/uL 4.6-6.2 [facility]: Blood hemoglobin measurement (mass/volume)on 06-08-2021 Hemoglobin (Bld) [Mass/Vol] 16.2 g/dL 13.0-16.5 [facility] Work Phone: Blood lymphocytes/100 leukoc yteson 06-08-2021 Lymphocytes/100 WBC (Bld) 7.0 % 19-41 [facility] Work Phone: [phone] Blood monocytes/100 leukocyt eson 06-08-2021 Monocytes/100 WBC (Bld) 15.8 % 0-10 [facility] Work Phone: Blood platelet mean volumeon 06-08-2021 Platelet mean volume (Bld) [Entitic vol] 9.1 fL 6.2-12.0 [facility] Work Phone: Determination of erythrocyte mean corpuscular volume (MCV)on 06-08-2021 MCV (RBC) [Entitic vol] 92.0 fL 80-94 [facility] Work Phone: HCO3 (BldA) [Moles/Vol]on HCO3 (Bld) [Moles/Vol] 29 mmol/L 22-26 [facility] Work Phone: Hematocrit Auto (Bld) [Volum e fraction]on 06-08-2021 Hematocrit (Bld) [Volume fraction] 49.7 % 40-54 [facility] Work Phone: Ketones Test strip Ql (U)on 06-08-2021 Ketones Ql (U) Negative Negative [facility] Work Phone: Laboratory - Chemistry and C hemistry - challengeon 06-08-2021 CO2 [Moles/Vol] 30 mmol/L 23-33 [facility] Work Phone: CO2 [Moles/Vol] 29.0 mmol/L 21.0-32.0 [facility] Work Phone: Urea nitrogen/Creatinine [Mass ratio] 18.5 mg/mg 10-20 [facility] Work Phone: Laboratory - Hematology and Cell countson 06-08-2021 Erythrocyte distribution width (RBC) [Entitic vol] 50.2 fL 35.1-43.9 [facility] Work Phone: Erythrocyte distribution width (RBC) [Ratio] 14.9 % 11.6-14.6 [facility] Work Phone: Immature granulocytes/100 WBC (Bld) 0.400 % 0.0-0.9 [facility] Work Phone: Comment on above: IG% - Immature Granu locytes (promyelocytes, myelocytes and metamyelocytes) > 1% indicates that a LEFT SHIFT is Present. MCH (RBC) [Entitic mass] 30.0 pg 27.0-32.0 [facility] Work Phone: Nucleated RBC/100 WBC (Bld) [Ratio] 0 % 0-5 [facility] Work Phone: MCHC Auto (RBC) [Mass/Vol]on 06-08-2021 MCHC (RBC) [Mass/Vol] 32.6 g/dL 32-36 [facility] Work Phone: Mucus LM Ql (Urine sed)on Mucus Ql (Urine sed) 0 SEEN /hpf [facility] Work Phone: Nitrite Test strip Ql (U)on 06-08-2021 Nitrite Ql (U) Negative Negative [facility] Work Phone: No Panel Informationon 06-08 Bed Mix Venous Bld PCO2 at Pat Temp 43.3 mmHg 41-51 [facility] Work Phone: Blood Gas Specimen Type EVELIO [facility] Work Phone: Oxygen Delivery Device Room Air [facility] Work Phone: Venous Blood Base Excess 4 mmol/L -1.0-3.5 [facility] Work Phone: Estimated Creatinine Clearance Calc 79.44 ml/min [facility] Work Phone: Estimated GFR (MDRD) Amer 100 mL/min >60 [facility] Work Phone: Comment on above: GFR Calc Estimated GFR (MDRD) Non-Af Amer 82 mL/min >60 [facility] Work Phone: Comment on above: Non- GFR Calc PO2 venouson 06-08-2021 Oxygen (BldV) [Partial pressure] 32 mm[Hg] 25-40 [facility] Work Phone: Platelets bldon 06-08-2021 Platelets (Bld) [#/Vol] 316 10*3/uL 150-450 [facility] Work Phone: Protein Test strip Ql (U)on 06-08-2021 Protein Ql (U) Negative Negative [facility] Work Phone: Serum or plasma calcium bernabe urement (mass/volume)on 06-08-2021 Calcium [Mass/Vol] 12.4 mg/dL 8.5-10.1 [facility] Work Phone: Serum or plasma creatinine m easurement (mass/volume)on 06-08-2021 Creatinine [Mass/Vol] 0.97 mg/dL 0.70-1.30 [facility] Work Phone: Comment on above: The validity of the calculated GFR & GFRAA in patients over 70 years has not been determined. Clinical correlation is essential. Serum or plasma urea nitroge n measurement (mass/volume)on 06-08-2021 Urea nitrogen [Mass/Vol] 18 mg/dL 7-18 [facility] Work Phone: Squamous epithelial cells de tection in urine sediment by light microscopyon 06-08-2021 Epithelial cells.squamous LM Ql (Urine sed) 0-5 SEEN /hpf [facility] Work Phone: Thin prep Papanicolaou smear with manual screeningon 06-08-2021 Thin prep Papanicolaou smear with manual screening 4 5-15 [facility] Work Phone: Urine blood detectionon 03-0 RBC Ql (U) Negative Negative [facility] Work Phone: RBC Ql (U) 0 SEEN /hpf [facility] Work Phone: Urine clarityon 06-08-2021 Clarity (U) Sl. Cloudy Clear [facility] Work Phone: Urine color determinationon 06-08-2021 Color (U) Yellow Yellow [facility] Work Phone: Urine glucose detectionon Glucose Ql (U) 1000 mg/dl Normal [facility] Work Phone: Urine leukocyte esterase det ection by dipstickon 06-08-2021 Leukocyte esterase Test strip Ql (U) 100 /ul Negative [facility] Work Phone: Urine pHon 06-08-2021 pH (U) 7.0 [pH] [facility] Work Phone: Urine sediment bacteria coun t by microscopy (number/high power field)on 06-08-2021 Bacteria LM.HPF (Urine sed) [#/Area] 0 /[HPF] None Seen [facility] Work Phone: Urine specific gravity measu rementon 06-08-2021 Specific gravity (U) [Rel density] 1.010 [facility] Work Phone: Urobilinogen Auto test strip Ql (U)on 06-08-2021 Urobilinogen Ql (U) Normal mg/dl Normal [facility] Work Phone: Vital signson 06-08-2021 Oxygen saturation in Blood 63 % 50-70 [facility] Work Phone: pH measurementon 06-08-2021 pH (Unsp spec) 7.43 [pH] 7.32-7.42 [facility] Work Phone: Glucose Glucometer (BldC) [M ass/Vol]on 05-21-2021 Glucose [Mass/Vol] 170 mg/dL 70-110 [facility] Work Phone: Comment on above: MANAGEMENT OF PATIEN T CARE PER NURSING PROTOCOL Absolute lymphocyte counton 05-20-2021 Lymphocytes Auto (Unsp spec) [#/Vol] 0.62 10*3/uL 0.83-4.51 [facility] Work Phone: Basophil percentageon 2021 Basophils/100 WBC (Bld) 0.2 % 0-1 [facility] Work Phone: Chloride [Moles/Vol] 108 mmol/L 98-107 [facility] Work Phone: Eosinophils/100 WBC (Bld) 0.7 % 0-5 [facility] Work Phone: Glucose [Mass/Vol] 81 mg/dL 74-106 [facility] Work Phone: Neutrophils (Bld) [#/Vol] 9.8 10*3/uL 2.0-7.7 [facility] Work Phone: Neutrophils/100 WBC (Bld) 78.4 % 47-70 [facility] Work Phone: Potassium [Moles/Vol] 4.3 mmol/L 3.5-5.1 [facility] Work Phone: Sodium [Moles/Vol] 138 mmol/L 136-145 [facility] Work Phone: WBC (Bld) [#/Vol] 12.6 10*3/uL 4.4-11.0 [place] [facility] Work Phone: Blood erythrocytes count (nu mber/volume)on 05-20-2021 RBC (Bld) [#/Vol] 4.96 10*6/uL 4.6-6.2 [facility] Work Phone: Blood hemoglobin measurement (mass/volume)on 05-20-2021 Hemoglobin (Bld) [Mass/Vol] 14.6 g/dL 13.0-16.5 [facility] Work Phone: Blood lymphocytes/100 leukoc yteson 05-20-2021 Lymphocytes/100 WBC (Bld) 4.9 % 19-41 [facility] Work Phone: Blood monocytes/100 leukocyt eson 05-20-2021 Monocytes/100 WBC (Bld) 15.1 % 0-10 [facility] Work Phone: Blood platelet mean volumeon 05-20-2021 Platelet mean volume (Bld) [Entitic vol] 9.3 fL 6.2-12.0 [facility] Work Phone: Determination of erythrocyte mean corpuscular volume (MCV)on 05-20-2021 MCV (RBC) [Entitic vol] 95.8 fL 80-94 [facility] Work Phone: Hematocrit Auto (Bld) [Volum e fraction]on 05-20-2021 Hematocrit (Bld) [Volume fraction] 47.5 % 40-54 [facility] Work Phone: Laboratory - Chemistry and C hemistry - challengeon 05-20-2021 CO2 [Moles/Vol] 24.0 mmol/L 21.0-32.0 [facility] Work Phone: Urea nitrogen/Creatinine [Mass ratio] 27.0 mg/mg 10-20 [facility] Work Phone: Laboratory - Hematology and Cell countson 05-20-2021 Anisocytosis Ql (Bld) 1+ [facility] Work Phone: Erythrocyte distribution width (RBC) [Entitic vol] 55.5 fL 35.1-43.9 [facility] Work Phone: Erythrocyte distribution width (RBC) [Ratio] 15.8 % 11.6-14.6 [facility] Work Phone: Immature granulocytes/100 WBC (Bld) 0.700 % 0.0-0.9 [facility] Work Phone: Comment on above: IG% - Immature Granu locytes (promyelocytes, myelocytes and metamyelocytes) > 1% indicates that a LEFT SHIFT is Present. MCH (RBC) [Entitic mass] 29.4 pg 27.0-32.0 [facility] Work Phone: Nucleated RBC/100 WBC (Bld) [Ratio] 0 % 0-5 [facility] Work Phone: MCHC Auto (RBC) [Mass/Vol]on 05-20-2021 MCHC (RBC) [Mass/Vol] 30.7 g/dL 32-36 [facility] Work Phone: No Panel Informationon 05-20 Estimated Creatinine Clearance Calc 77.06 ml/min [facility] Work Phone: Estimated GFR (MDRD) Amer 97 mL/min >60 [facility] Work Phone: Comment on above: GFR Calc Estimated GFR (MDRD) Non-Af Amer 80 mL/min >60 [facility] Work Phone: Comment on above: Non- GFR Calc Platelets bldon 05-20-2021 Platelets (Bld) [#/Vol] 232 10*3/uL 150-450 [facility] Work Phone: Review by pathologiston 05-11 Pathologist review Jagdeep (Unsp spec) [Interp] Reviewed [facility] Work Phone: Comment on above: Previous reported re sult: Wilda kristel Edited by: RGOCASE on 05/20/21:1526Neutrophilic leukocytosis.MacrocytosisClinical correlation necessary.Haroldo Quiroga M.D. 05/20/21 AMENDED REPORT 05/20/21 1526 PATH REV previously reported as: Wilda humphries Serum or plasma calcium bernabe urement (mass/volume)on 05-20-2021 Calcium [Mass/Vol] 11.2 mg/dL 8.5-10.1 [facility] Work Phone: Serum or plasma creatinine m easurement (mass/volume)on 05-20-2021 Creatinine [Mass/Vol] 1.00 mg/dL 0.70-1.30 [facility] Work Phone: Comment on above: The validity of the calculated GFR & GFRAA in patients over 70 years has not been determined. Clinical correlation is essential. Serum or plasma urea nitroge n measurement (mass/volume)on 05-20-2021 Urea nitrogen [Mass/Vol] 27 mg/dL 7-18 [facility] Work Phone: Thin prep Papanicolaou smear with manual screeningon 05-20-2021 Thin prep Papanicolaou smear with manual screening 6 5-15 [facility] Work Phone: Basophil percentageon 2021 Basophil percentage 0-5 [facility] Work Phone: Bilirubin [Mass/Vol] 0.70 mg/dL 0.20-1.00 [facility] [address] [facility] Work Phone: Comment on above: For patients on eltr ombopag therapy, use of Dimension [place] TBIL is not recommended. Cholesterol [Mass/Vol] 121 mg/dL <200 [facility] Work Phone: Comment on above: <200 mg/dL Desirable 200-240 mg/dL Borderline >240 mg/dL High Risk Protein [Mass/Vol] 6.8 g/dL 6.4-8.2 [facility] Work Phone: Triglyceride [Mass/Vol] 186 mg/dL [facility] Work Phone: Comment on above: The drugs N-Acetylcy steine and Metamizole may falsely depress this assay.Serum Triglycerides Reference Interval Normal <150 mg/dL Borderline high 150 - 199 mg/dL High 200 - 499 mg/dL Very High > or = 500 mg/dL Bilirubin Test strip Ql (U)o n 05-19-2021 Bilirubin Ql (U) Negative Negative [facility] Work Phone: Ketones Test strip Ql (U)on 05-19-2021 Ketones Ql (U) Negative Negative [facility] Work Phone: Laboratory - Chemistry and C hemistry - challengeon 05-19-2021 ALP [Catalytic activity/Vol] 60 U/L 45-117 [facility] Work Phone: ALT [Catalytic activity/Vol] 46 U/L 16-61 [facility] Work Phone: Globulin (S) [Mass/Vol] 3.7 g/dL 2.2-4.2 [facility] Work Phone: Mucus LM Ql (Urine sed)on Mucus Ql (Urine sed) 0 SEEN /hpf [facility] Work Phone: Nitrite Test strip Ql (U)on 05-19-2021 Nitrite Ql (U) Negative Negative [facility] Work Phone: No Panel Informationon 05-19 Streptococcus pneumoniae Antigen (M [facility] Work Phone: Thyroid Stimulating Hormone (TSH) 1.10 uIU/mL 0.358-3.74 [facility] Work Phone: Protein Test strip Ql (U)on 05-19-2021 Protein Ql (U) 15 mg/dl Negative [facility] Work Phone: Serum or plasma albumin bernabe urement (mass/volume)on 05-19-2021 Albumin [Mass/Vol] 3.1 g/dL 3.2-5.0 [facility] Work Phone: Serum or plasma albumin/glob ulin mass ratioon 05-19-2021 Albumin/Globulin [Mass ratio] 0.8 {ratio} 0.9-2.4 [facility] Work Phone: Serum or plasma cholesterol in HDL measurement (mass/volume)on 05-19-2021 Cholesterol in HDL [Mass/Vol] 31 mg/dL [facility] Work Phone: Comment on above: The drugs N-Acetylcy steine and Metamizole may falsely depress this assay. Reference Range HDL <40 mg/dL Low HDL Cholesterol HDL >or= 60 mg/dL High HDL Cholesterol Serum or plasma cholesterol in VLDL measurement (mass/volume)on 05-19-2021 Cholesterol in VLDL [Mass/Vol] 37 mg/dL 5-40 [facility] Work Phone: Serum or plasma low density lipoprotein (LDL) cholesterol measurement (mass/volume)on 05-19-2021 Cholesterol in LDL [Mass/Vol] 53 mg/dL 0-130 [facility] Work Phone: Squamous epithelial cells de tection in urine sediment by light microscopyon 05-19-2021 Epithelial cells.squamous LM Ql (Urine sed) 0 SEEN /hpf [facility] Work Phone: Thin prep Papanicolaou smear with manual screeningon 05-19-2021 Thin prep Papanicolaou smear with manual screening 21 U/L 15-37 [facility] Work Phone: Urine blood detectionon RBC Ql (U) Negative Negative [facility] Work Phone: RBC Ql (U) 0 SEEN /hpf [facility] Work Phone: Urine clarityon 05-19-2021 Clarity (U) Clear Clear [facility] Work Phone: Urine color determinationon 05-19-2021 Color (U) Yellow Yellow [facility] Work Phone: Urine glucose detectionon Glucose Ql (U) 1000 mg/dl Normal [facility] Work Phone: Urine leukocyte esterase det ection by dipstickon 05-19-2021 Leukocyte esterase Test strip Ql (U) 25 /ul Negative [facility] Work Phone: Urine pHon 05-19-2021 pH (U) 6.0 [pH] [facility] Work Phone: Urine sediment bacteria coun t by microscopy (number/high power field)on 05-19-2021 Bacteria LM.HPF (Urine sed) [#/Area] 0 /[HPF] None Seen [facility] Work Phone: Urine specific gravity measu rementon 05-19-2021 Specific gravity (U) [Rel density] 1.015 [facility] Work Phone: Urobilinogen Auto test strip Ql (U)on 05-19-2021 Urobilinogen Ql (U) Normal mg/dl Normal [facility] Work Phone: Whole blood hemoglobin A1c/t otal hemoglobin ratio (mass fraction)on 05-19-2021 HbA1c (Bld) [Mass fraction] 6.2 % 3.8-5.6 [facility] Work Phone: Comment on above: Normal < 5.7 % Predi abetic 5.7 - 6.4 % Diabetic >or= 6.5 % Please note range changes. Blood manual differential co mment interpretation (narrative result)on 05-18-2021 Manual differential comment Jagdeep (Bld) [Interp] SEE COMMENTS [facility] Work Phone: Comment on above: LYMPHOPENIA NOTEDMON OCYTOSIS NOTED Blood platelet adequacy dete ction by light microscopyon 05-18-2021 Platelets LM Ql (Bld) ADEQUATE ADEQ [facility] Work Phone: INR in Blood by Coagulation assayon 05-18-2021 INR Coag (Bld) [Relative time] 1.1 {INR} [facility] Work Phone: Laboratory - Chemistry and C hemistry - challengeon 05-18-2021 Magnesium [Mass/Vol] 2.4 mg/dL [facility] Work Phone: Comment on above: Performed at: [address] [id number] Director: Speedy Duncan PhD, Phone: [phone] Laboratory - Coagulationon 0 05-18-2021 aPTT Coag (Bld) [Time] 27.4 s 24.1-36.2 [facility] Work Phone: PT Coag (PPP) [Time] 13.1 s 11.7-14.9 [facility] Work Phone: Macrocytes detectionon 05-18 Macrocytes Ql (Bld) RARE [facility] Work Phone: No Panel Informationon 05-18 SARS-CoV-2 Antigen (Rapid) [facility] Work Phone: D-Dimer Quantitative (PE/DVT) 0.44 FEU/ug/m 0.27-0.49 [facility] Work Phone: Comment on above: NORMAL D-Dimer level (<0.50) indicates no DVT or PE. Troponin I High Sensitivity 31 pg/mL 3.0-78.0 [facility] Work Phone: Comment on above: Please Note: New Kym t Units and Gender Specific Reference Ranges. For more information see Policy Stat Procedure [place] High Sensitivity Troponin (TNIH) and attachments. RBC morphologyon 05-18-2021 RBC morphology finding Nom (Bld) N CHROM NORMAL NORM C&C [facility] Work Phone: Serum procalcitonin measurem enton 05-18-2021 Procalcitonin [Mass/Vol] 0.26 ng/mL 0.00-0.09 [facility] Work Phone: Comment on above: A procalcitonin (PCT ) level above 2.0 ng/mL on the first day of ICU admission is associated with a high risk for progression to severe sepsis and/or septic shock. A PCT level below 0.5 ng/mL on the first day of ICU admission is associated with a low risk for progression to severe and/or septic shock. Note: Concentrations <0.5 ng/mL do not exclude an infection on account of localized infections (without systemic signs) which can be associated with such low concentrations, or a systemic infection in its initial stages (<6 hours). Furthermore, increased procalcitonin can occur without infection. PCT concentrations between 0.5 and 2.0 ng/mL should be interpreted taking into account the patient's history. It is recommended to retest PCT within 6-24 hours if any concentrations <2 ng/mL are obtained. Basophil percentageon 2021 Bilirubin [Mass/Vol] 0.50 mg/dL 0.20-1.00 [facility] Work Phone: Comment on above: For patients on eltr ombopag therapy, use of Dimension [place] TBIL is not recommended. Chloride [Moles/Vol] 103 mmol/L 98-107 [facility] Work Phone: Glucose [Mass/Vol] 94 mg/dL 74-106 [facility] Work Phone: Potassium [Moles/Vol] 3.7 mmol/L 3.5-5.1 [facility] Work Phone: Protein [Mass/Vol] 8.0 g/dL 6.4-8.2 [facility] Work Phone: Sodium [Moles/Vol] 139 mmol/L 136-145 [facility] Work Phone: Laboratory - Chemistry and C hemistry - challengeon 05-11-2021 ALP [Catalytic activity/Vol] 68 U/L 45-117 [facility] Work Phone: ALT [Catalytic activity/Vol] 58 U/L 16-61 [facility] Work Phone: CO2 [Moles/Vol] 29.0 mmol/L 21.0-32.0 [facility] Work Phone: Globulin (S) [Mass/Vol] 4.0 g/dL 2.2-4.2 [facility] Work Phone: Urea nitrogen/Creatinine [Mass ratio] 33.1 mg/mg 10-20 [facility] Work Phone: Laboratory - Hematology and Cell countson 05-11-2021 HbA1c (Bld) [Mass fraction] 6.3 % [facility] Work Phone: No Panel Informationon 05-11 Estimated GFR (MDRD) Amer 78 mL/min >60 [facility] Work Phone: Comment on above: GFR Calc Estimated GFR (MDRD) Non-Af Amer 64 mL/min >60 [facility] Work Phone: Comment on above: Non- GFR Calc Parathyroid Hormone (Intact) 207.1 pg/mL 18.4-80.1 [facility] Work Phone: Serum or plasma albumin bernabe urement (mass/volume)on 05-11-2021 Albumin [Mass/Vol] 4.0 g/dL 3.2-5.0 [facility] Work Phone: Serum or plasma albumin/glob ulin mass ratioon 05-11-2021 Albumin/Globulin [Mass ratio] 1.0 {ratio} 0.9-2.4 [facility] Work Phone: Serum or plasma calcium bernabe urement (mass/volume)on 05-11-2021 Calcium [Mass/Vol] 11.8 mg/dL 8.5-10.1 [facility] Work Phone: Serum or plasma creatinine m easurement (mass/volume)on 05-11-2021 Creatinine [Mass/Vol] 1.21 mg/dL 0.70-1.30 [facility] Work Phone: Comment on above: The validity of the calculated GFR & GFRAA in patients over 70 years has not been determined. Clinical correlation is essential. Serum or plasma urea nitroge n measurement (mass/volume)on 05-11-2021 Urea nitrogen [Mass/Vol] 40 mg/dL 7-18 [facility] Work Phone: Thin prep Papanicolaou smear with manual screeningon 05-11-2021 Thin prep Papanicolaou smear with manual screening 31 U/L 15-37 [facility] Work Phone: Thin prep Papanicolaou smear with manual screening 7 5-15 [facility] Work Phone: Absolute lymphocyte counton 04-28-2021 Lymphocytes Auto (Unsp spec) [#/Vol] 1.05 10*3/uL 0.83-4.51 [facility] Work Phone: Basophil percentageon 2021 Basophils/100 WBC (Bld) 0.5 % 0-1 [facility] Work Phone: Bilirubin [Mass/Vol] 0.50 mg/dL 0.20-1.00 [facility] Work Phone: Comment on above: For patients on eltr ombopag therapy, use of Dimension [place] TBIL is not recommended. Chloride [Moles/Vol] 102 mmol/L 98-107 [facility] Work Phone: Cholesterol [Mass/Vol] 165 mg/dL <200 [facility] Work Phone: Comment on above: <200 mg/dL Desirable 200-240 mg/dL Borderline >240 mg/dL High Risk Eosinophils/100 WBC (Bld) 1.6 % 0-5 [facility] Work Phone: Glucose [Mass/Vol] 115 mg/dL 74-106 [facility] Work Phone: Comment on above: Fasting Glucose resu lt from 100 to 125 mg/dL suggests IMPAIRED HOMEOSTASIS per A.D.A. criteria. Neutrophils (Bld) [#/Vol] 5.0 10*3/uL 2.0-7.7 [facility] Work Phone: Neutrophils/100 WBC (Bld) 68.2 % 47-70 [facility] Work Phone: Potassium [Moles/Vol] 3.8 mmol/L 3.5-5.1 [facility] Work Phone: Protein [Mass/Vol] 8.0 g/dL 6.4-8.2 [facility] Work Phone: Sodium [Moles/Vol] 137 mmol/L 136-145 [facility] Work Phone: Triglyceride [Mass/Vol] 399 mg/dL [facility] Work Phone: Comment on above: The drugs N-Acetylcy steine and Metamizole may falsely depress this assay.Serum Triglycerides Reference Interval Normal <150 mg/dL Borderline high 150 - 199 mg/dL High 200 - 499 mg/dL Very High > or = 500 mg/dL WBC (Bld) [#/Vol] 7.3 10*3/uL 4.4-11.0 [facility] Work Phone: Blood erythrocytes count (nu mber/volume)on 04-28-2021 RBC (Bld) [#/Vol] 5.75 10*6/uL 4.6-6.2 [facility] Work Phone: Blood hemoglobin measurement (mass/volume)on 04-28-2021 Hemoglobin (Bld) [Mass/Vol] 16.8 g/dL 13.0-16.5 [facility] Work Phone: Blood lymphocytes/100 leukoc yteson 04-28-2021 Lymphocytes/100 WBC (Bld) 14.3 % 19-41 [facility] Work Phone: Blood monocytes/100 leukocyt eson 04-28-2021 Monocytes/100 WBC (Bld) 14.7 % 0-10 [facility] Work Phone: Blood platelet mean volumeon 04-28-2021 Platelet mean volume (Bld) [Entitic vol] 9.7 fL 6.2-12.0 [facility] Work Phone: Determination of erythrocyte mean corpuscular volume (MCV)on 04-28-2021 MCV (RBC) [Entitic vol] 92.7 fL 80-94 [facility] Work Phone: Hematocrit Auto (Bld) [Volum e fraction]on 04-28-2021 Hematocrit (Bld) [Volume fraction] 53.3 % 40-54 [facility] Work Phone: Laboratory - Chemistry and C hemistry - challengeon 04-28-2021 ALP [Catalytic activity/Vol] 70 U/L 45-117 [facility] Work Phone: [phone] ALT [Catalytic activity/Vol] 70 U/L 16-61 [facility] Work Phone: CO2 [Moles/Vol] 27.0 mmol/L 21.0-32.0 [facility] Work Phone: Globulin (S) [Mass/Vol] 3.8 g/dL 2.2-4.2 [facility] Work Phone: Magnesium [Mass/Vol] 3.0 mg/dL 1.6-2.6 [facility] Work Phone: Urea nitrogen/Creatinine [Mass ratio] 31.4 mg/mg 10-20 [facility] Work Phone: Laboratory - Hematology and Cell countson 04-28-2021 Erythrocyte distribution width (RBC) [Entitic vol] 51.8 fL 35.1-43.9 [facility] Work Phone: Erythrocyte distribution width (RBC) [Ratio] 15.3 % 11.6-14.6 [facility] Work Phone: Immature granulocytes/100 WBC (Bld) 0.700 % 0.0-0.9 [facility] Work Phone: Comment on above: IG% - Immature Granu locytes (promyelocytes, myelocytes and metamyelocytes) > 1% indicates that a LEFT SHIFT is Present. MCH (RBC) [Entitic mass] 29.2 pg 27.0-32.0 [facility] Work Phone: Nucleated RBC/100 WBC (Bld) [Ratio] 0 % 0-5 [facility] Work Phone: [phone] MCHC Auto (RBC) [Mass/Vol]on 04-28-2021 MCHC (RBC) [Mass/Vol] 31.5 g/dL 32-36 [facility] Work Phone: No Panel Informationon 04-28 Estimated GFR (MDRD) Amer 53 mL/min >60 [facility] Work Phone: Comment on above: GFR Calc Estimated GFR (MDRD) Non-Af Amer 44 mL/min >60 [facility] Work Phone: Comment on above: Non- GFR Calc Thyroid Stimulating Hormone (TSH) 2.79 uIU/mL 0.358-3.74 [facility] Work Phone: Vitamin D 25-Hydroxy 8.7 ng/mL [facility] Work Phone: Comment on above: Vitamin D 25(OH) Sta tus Range Deficiency <20 ng/mL (50nmol/L) Insufficiency 20 - 30 ng/mL (50 - 75 nmol/L) Sufficiency 30 - 100 ng/mL (75 - 250 nmol/L) Toxicity >100 ng/mL (>250 nmol/L) Platelets bldon 04-28-2021 Platelets (Bld) [#/Vol] 308 10*3/uL 150-450 [facility] Work Phone: Serum or plasma albumin bernabe urement (mass/volume)on 04-28-2021 Albumin [Mass/Vol] 4.2 g/dL 3.2-5.0 [facility] Work Phone: Serum or plasma albumin/glob ulin mass ratioon 04-28-2021 Albumin/Globulin [Mass ratio] 1.1 {ratio} 0.9-2.4 [facility] Work Phone: Serum or plasma calcium bernabe urement (mass/volume)on 04-28-2021 Calcium [Mass/Vol] 10.5 mg/dL 8.5-10.1 [facility] Work Phone: Serum or plasma cholesterol in HDL measurement (mass/volume)on 04-28-2021 Cholesterol in HDL [Mass/Vol] 28 mg/dL [facility] Work Phone: Comment on above: The drugs N-Acetylcy steine and Metamizole may falsely depress this assay. Reference Range HDL <40 mg/dL Low HDL Cholesterol HDL >or= 60 mg/dL High HDL Cholesterol Serum or plasma cholesterol in VLDL measurement (mass/volume)on 04-28-2021 Cholesterol in VLDL [Mass/Vol] 80 mg/dL 5-40 [facility] Work Phone: Serum or plasma creatinine m easurement (mass/volume)on 04-28-2021 Creatinine [Mass/Vol] 1.69 mg/dL 0.70-1.30 [facility] Work Phone: Comment on above: The validity of the calculated GFR & GFRAA in patients over 70 years has not been determined. Clinical correlation is essential. Serum or plasma low density lipoprotein (LDL) cholesterol measurement (mass/volume)on 04-28-2021 Cholesterol in LDL [Mass/Vol] 57 mg/dL 0-130 [facility] Work Phone: Serum or plasma urea nitroge n measurement (mass/volume)on 04-28-2021 Urea nitrogen [Mass/Vol] 53 mg/dL 7-18 [facility] Work Phone: Thin prep Papanicolaou smear with manual screeningon 04-28-2021 Thin prep Papanicolaou smear with manual screening 31 U/L 15-37 [facility] Work Phone: Thin prep Papanicolaou smear with manual screening 8 5-15 [facility] Work Phone: Established Visit (Otolaryng ology)on 01-02-2018 Established Visit (Otolaryngology) Chief Complaint1. Right paranasal sinus glomangiopericytoma s/p resection . Chronic sinusitis s/p bilateral sinus surgery 11/06/17 3. Nasal airway obstruction s/p septoplasty and turbinate reductions . Rhinorrhea5. Decreased sense of smell6. COPD on supplemental oxygen History of Present IllnessReason for visit: SHADE TEIXEIRA patient presents since last being seen 11/21/17. Main Symptoms: Patient has anterior nasal drainage. recent improvement. Patient has posterior nasal drainage. Patient has nasal airway obstruction. bilaterally. Patient does not have facial pain. Patient does not have facial pressure. Patient has decreased sense of smell. Decreased 60 % of normal. Medications currently on for sinonasal symptoms: Saline [place] (BID) Shade developed some ear discomfort after rinsing about 3 weeks ago and discontinued that therapy. He has been having a number of symptoms as mentioned above most notably nasal airway obstruction. He is having some difficulty with tolerance of his [...] Ana Ross; 04/27/2017 1:09:22 PM Current Meds Dale Nasal [place] 0.65 % Nasal Solution; 2-4 SPRAYS EACH NOSTRIL TWO-THREETIMES A DAY AND NEEDED;Therapy: [id number] to (Last Rx:[id number]) Requested for: [id number] Ordered Rx By: Eduardo Almeida; Dispense: 0 Days ; #:1 X 45 ML Bottle; Refill: 5;For: Chronic maxillary sinusitis; ZORA = N; Verified Transmission to [facility] Albuterol Sulfate (2.5 MG/3ML) 0.083% Inhalation Nebulization Solution;Therapy: (Recorded:26Jul2017) to Recorded Dispense: 0 Days ; #: Sufficient NEBU; Refill: 0; ZORA = N; Record; Last Updated By: Sharad Edward; 07/26/2017 1:50:25 PM AmLODIPine Besylate 10 MG Oral Tablet;Therapy: (Recorded:26Jul2017) to Recorded Dispense: 0 Days ; #: Sufficient TABS; Refill: 0; ZORA = N; Record; Last Updated By: Sharad Edward; 07/26/2017 1:50:24 PM Aspirin EC 81 MG Oral Tablet Delayed Release;Therapy: (Recorded:26Jul2017) to Recorded Dispense: 0 Days ; #: Sufficient TBEC; Refill: 0; ZORA = N; Record; Last Updated By: Sharad Edward; 07/26/2017 1:50:24 PM Atorvastatin Calcium 40 MG Oral Tablet;Therapy: (Recorded:26Jul2017) to Recorded Dispense: 0 Days ; #: Sufficient TABS; Refill: 0; ZORA = N; Record; Last Updated By: Sharad Edward; 07/26/2017 1:50:24 PM BD TB Syringe 27G X 1/2 1 ML Miscellaneous;Therapy: 03Jul2017 to Recorded Rx By: KIRIT; Dispense: 22 Days ; #:60 MISC; Refill: 0; ZORA = N; Record; Last Updated By: Yoselin Green; 10/10/2017 2:24:56 PM Clopidogrel Bisulfate 75 MG Oral Tablet;Therapy: (Recorded:26Jul2017) to Recorded Dispense: 0 Days ; #: Sufficient TABS; Refill: 0; ZORA = N; Record; Last Updated By: Sharad Edward; 07/26/2017 1:50:24 PM Clotrimazole 1 % External Cream;Therapy: 03Oct2017 to Recorded Rx By: NELSY; Dispense: 15 Days ; #:45 CREA; Refill: 0; ZORA = N; Record; Last Updated By: Yoselin Green; 10/10/2017 2:24:56 PM Compound Drug;Therapy: (Recorded:[id number]) to Recorded Dispense: 0 Days ; #: Sufficient; Refill: 0; ZORA = N; Record; Last Updated By: Payal Heredia; 01/02/2018 10:36:58 AM DOK 100 MG Oral Capsule; TAKE 1 CAPSULE BY MOUTH 2 TIMES DAILY WHILETAKING OXYCODONE;Therapy: [id number] to Recorded Rx By: JUAN PABLO; Dispense: 15 Days ; #:30 CAPS; Refill: 0; ZORA = N; Record; Last Updated By: Manda Abernathy; 11/14/2017 2:41:47 PM Fluticasone Propionate 50 MCG/ACT Nasal Suspension;Therapy: (Recorded:26Jul2017) to Recorded Dispense: 0 Days ; #: Sufficient SUSP; Refill: 0; ZORA = N; Record; Last Updated By: Sharad Edward; 07/26/2017 1:50:25 PM FreeStyle Lite Test In Vitro Strip;Therapy: 09May2017 to Recorded Rx By: KIRIT; Dispense: 50 Days ; #:100 STRP; Refill: 0; ZORA = N; Record; Last Updated By: Yoselin Green; 10/10/2017 2:24:56 PM Furosemide 40 MG Oral Tablet;Therapy: (Recorded:26Jul2017) to Recorded Dispense: 0 Days ; #: Sufficient TABS; Refill: 0; ZORA = N; Record; Last Updated By: Sharad Edward; 07/26/2017 1:50:24 PM Gemfibrozil 600 MG Oral Tablet;Therapy: (Recorded:26Jul2017) to Recorded Dispense: 0 Days ; #: Sufficient TABS; Refill: 0; ZORA = N; Record; Last Updated By: Sharad Edward; 07/26/2017 1:50:25 PM Glimepiride 4 MG Oral Tablet;Therapy: (Recorded:26Jul2017) to Recorded Dispense: 0 Days ; #: Sufficient TABS; Refill: 0; ZORA = N; Record; Last Updated By: Sharad Edward; 07/26/2017 1:50:25 PM HumuLIN R U-500 (CONCENTRATED) 500 UNIT/ML Subcutaneous Solution;Therapy: 17Jul2017 to Recorded Rx By: KIRIT; Dispense: 30 Days ; #:40 SOLN; Refill: 0; ZORA = N; Record; Last Updated By: Yoselin Green; 10/10/2017 2:24:56 PM Insulin Purified Lente (Pork) 100 U/ML SUSP;Therapy: (Recorded:26Jul2017) to Recorded Dispense: 0 Days ; #: Sufficient SUSP; Refill: 0; ZORA = N; Record; Last Updated By: Sharad Edward; 07/26/2017 1:50:25 PM Klor-Con M20 20 MEQ Oral Tablet Extended Release;Therapy: [id number] to Recorded Rx By: KIRIT; Dispense: 30 Days ; #:180 TBCR; Refill: 0; ZORA = N; Record; Last Updated By: Yoselin Green; 10/10/2017 2:24:56 PM LORazepam 1 MG Oral Tablet;Therapy: (Recorded:26Jul2017) to Recorded Dispense: 0 Days ; #: Sufficient TABS; Refill: 0; ZORA = N; Record; Last Updated By: Sharad Edward; 07/26/2017 1:50:25 PM MetFORMIN HCl - 1000 MG Oral Tablet;Therapy: (Recorded:27Apr2017) to Recorded Dispense: 0 Days ; #: Sufficient TABS; Refill: 0; ZORA = N; Record; Last Updated By: Ana Ross; 04/27/2017 1:09:22 PM MetOLazone 2.5 MG Oral Tablet;Therapy: (Recorded:26Jul2017) to Recorded Dispense: 0 Days ; #: Sufficient TABS; Refill: 0; ZORA = N; Record; Last Updated By: Sharad Edward; 07/26/2017 1:50:25 PM Metoprolol Succinate ER 100 MG Oral Tablet Extended Release 24 Hour;Therapy: (Recorded:26Jul2017) to Recorded Dispense: 0 Days ; #: Sufficient TB24; Refill: 0; ZORA = N; Record; Last Updated By: Sharad Edward; 07/26/2017 1:50:25 PM Metoprolol Succinate ER 200 MG Oral Tablet Extended Release 24 Hour;Therapy: 29Aug2016 to Recorded Rx By: KIRIT; Dispense: 30 Days ; #:30 TB24; Refill: 0; ZORA = N; Record; Last Updated By: Yoselin Green; 10/10/2017 2:24:56 PM Multi Vitamin/Minerals Oral Tablet;Therapy: (Recorded:26Jul2017) to Recorded Dispense: 0 Days ; #: Sufficient TABS; Refill: 0; ZORA = N; Record; Last Updated By: Sharad Edward; 07/26/2017 1:50:25 PM Naproxen Sodium CAPS;Therapy: (Recorded:26Jul2017) to Recorded Dispense: 0 Days ; #: Sufficient CAPS; Refill: 0; ZORA = N; Record; Last Updated By: Sharad Edward; 07/26/2017 1:50:25 PM Nitroglycerin 0.4 MG Sublingual Tablet Sublingual;Therapy: (Recorded:26Jul2017) to Recorded Dispense: 0 Days ; #: Sufficient SUBL; Refill: 0; ZORA = N; Record; Last Updated By: Sharad Edward; 07/26/2017 1:50:25 PM OneTocydney Delkirstie Lancmiguel angel 33G Miscellaneous;Therapy: 19Sep2017 to Recorded Rx By: KIRIT; Dispense: 90 Days ; #:300 MISC; Refill: 0; ZORA = N; Record; Last Updated By: Yoselin Green; 10/10/2017 2:24:56 PM OxyCODONE HCl - 5 MG Oral Tablet; take 1 tablet by mouth every 6 hours if needed forpain;Therapy: [id number] to Recorded Rx By: JUAN PABLO; Dispense: 5 Days ; #:20 TABS; Refill: 0; ZORA = N; Record; Last Updated By: Manda Abernathy; 11/14/2017 2:41:47 PM PARoxetine HCl - 40 MG Oral Tablet;Therapy: (Recorded:[id number]) to Recorded Dispense: 0 Days ; #: Sufficient TABS; Refill: 0; ZORA = N; Record; Last Updated By: Sharad Edward; 07/26/2017 1:50:25 PM Potassium Chloride 40 MEQ/15ML (20%) Oral Solution;Therapy: (Recorded:[id number]) to Recorded Dispense: 0 Days ; #: Sufficient SOLN; Refill: 0; ZORA = N; Record; Last Updated By: Sharad Edward; 07/26/2017 1:50:25 PM Ranexa 500 MG Oral Tablet Extended Release 12 Hour;Therapy: (Recorded:26Jul2017) to Recorded Dispense: 0 Days ; #: Sufficient TB12; Refill: 0; ZORA = N; Record; Last Updated By: Sharad Edward; 07/26/2017 1:50:25 PM TiZANidine HCl - 4 MG Oral Tablet;Therapy: 02Aug2017 to Recorded Rx By: ROSLYN; Dispense: 30 Days ; #:30 TABS; Refill: 0; ZORA = N; Record; Last Updated By: Yoselin Green; 10/10/2017 2:24:56 PM TraMADol HCl - 50 MG Oral Tablet;Therapy: 12Jul2017 to Recorded Rx By: ROSLYN; Dispense: 7 Days ; #:14 TABS; Refill: 0; ZORA = N; Record; Last Updated By: Yoselin Green; 10/10/2017 2:24:56 PM Ventolin HFA 108 (90 Base) MCG/ACT Inhalation Aerosol Solution;Therapy: 28Sep2017 to Recorded Rx By: ANN; Dispense: 17 Days ; #:18 AERS; Refill: 0; ZORA = N; Record; Last Updated By: Yoselin Green; 10/10/2017 2:24:56 PM Physical ExamNose: On external exam there are neither lesions nor asymmetry of the nasal tip/dorsum. On anterior rhinoscopy, visualization posteriorly is limited on anterior examination. For this reason, to adequately evaluate posteriorly for masses, source of epistaxis, polypoid disease, debridement, and/or signs of infections, nasal endoscopy is indicated.(Please see procedure below.)SINONASAL ENDOSCOPY WITH DEBRIDEMENT (CPT 55183-87-65): Due to the patient's chronic sinusitis/chronic rhinitis, sinonasal endoscopy with debridement is indicated. After discussion of risks and benefits, and topical decongestion and anesthesia, an endoscope was used to perform nasal endoscopy with debridement. A timeout identifying the patient, the procedure, and any concerns was performed prior to beginning the procedure.Findings: Examination of the right nasal cavity revealed crusting and debris encompassing the entirety of the nasal cavity and ethmoid cavity with extension into the maxillary sinus and sphenoid sinus and this was all completely removed. There was associated mucoid secretions that were also evacuated. He had frontal region edema. On the left-hand side he had less significant crusting but it still filled his nasal cavity into the ethmoid region and this was removed. Again he had frontal region edema. He tolerated the procedure well and his nasal breathing was significantly improved following this.There were no concerning lesions within either nasal cavity or within either ethmoid cavity. 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 Right paranasal sinus glomangiopericytoma s/p resection . Chronic sinusitis s/p bilateral sinus surgery 11/06/17 3. Nasal airway obstruction s/p septoplasty and turbinate reductions . Rhinorrhea5. Decreased sense of smell6. COPD on supplemental oxygenDiscussion: Shade had significant crusting on both sides. I recommended that he restart rinses and my nurse reviewed appropriate administration technique within. I recommended follow-up in 6 weeks. All questions were answered. Patient Discussion/SummaryPlease followup with me in 6 weeks for reevaluation or sooner with any questions or concerns. Please feel free to contact my office by calling [phone] with any questions. End of Encounter MedsAlbuterol Sulfate (2.5 MG/3ML) 0.083% Inhalation Nebulization Solution;Therapy: (Recorded:26Jul2017) to RecordedAmLODIPine Besylate 10 MG Oral Tablet;Therapy: (Recorded:26Jul2017) to RecordedAspirin EC 81 MG Oral Tablet Delayed Release;Therapy: (Recorded:26Jul2017) to RecordedAtorvastatin Calcium 40 MG Oral Tablet;Therapy: (Recorded:26Jul2017) to RecordedBD TB Syringe 27G X 1/2 1 ML Miscellaneous;Therapy: 03Jul2017 to RecordedClopidogrel Bisulfate 75 MG Oral Tablet;Therapy: (Recorded:26Jul2017) to RecordedClotrimazole 1 % External Cream;Therapy: 03Oct2017 to RecordedCompound Drug;Therapy: (Recorded:[id number]) to RecordedDOK 100 MG Oral Capsule; TAKE 1 CAPSULE BY MOUTH 2 TIMES DAILY WHILETAKING OXYCODONE;Therapy: [id number] to RecordedFluticasone Propionate 50 MCG/ACT Nasal Suspension;Therapy: (Recorded:26Jul2017) to RecordedFreeStyle Lite Test In Vitro Strip;Therapy: 09May2017 to RecordedFurosemide 40 MG Oral Tablet;Therapy: (Recorded:26Jul2017) to RecordedGemfibrozil 600 MG Oral Tablet;Therapy: (Recorded:26Jul2017) to RecordedGlimepiride 4 MG Oral Tablet;Therapy: (Recorded:26Jul2017) to RecordedHumuLIN R U-500 (CONCENTRATED) 500 UNIT/ML Subcutaneous Solution;Therapy: 17Jul2017 to RecordedInsulin Purified Lente (Pork) 100 U/ML SUSP;Therapy: (Recorded:26Jul2017) to RecordedKlor-Con M20 20 MEQ Oral Tablet Extended Release;Therapy: [id number] to RecordedLORazepam 1 MG Oral Tablet;Therapy: (Recorded:26Jul2017) to RecordedMetFORMIN HCl - 1000 MG Oral Tablet;Therapy: (Recorded:27Apr2017) to RecordedMetOLazone 2.5 MG Oral Tablet;Therapy: (Recorded:26Jul2017) to RecordedMetoprolol Succinate ER 100 MG Oral Tablet Extended Release 24 Hour;Therapy: (Recorded:26Jul2017) to RecordedMetoprolol Succinate ER 200 MG Oral Tablet Extended Release 24 Hour;Therapy: [id number] to RecordedMulti Vitamin/Minerals Oral Tablet;Therapy: (Recorded:26Jul2017) to RecordedNaproxen Sodium CAPS;Therapy: (Recorded:26Jul2017) to RecordedNitroglycerin 0.4 MG Sublingual Tablet Sublingual;Therapy: (Recorded:26Jul2017) to RecordedOcean Nasal [place] 0.65 % Nasal Solution; 2-4 SPRAYS EACH NOSTRIL TWO-THREETIMES A DAY AND NEEDED;Therapy: 14Nov2017 to (Last Rx:[id number]) Requested for: 14Nov2017 OrderedOneTouch Delica Lancets 33G Miscellaneous;Therapy: 19Sep2017 to RecordedOxyCODONE HCl - 5 MG Oral Tablet; take 1 tablet by mouth every 6 hours if needed forpain;Therapy: [id number] to RecordedPARoxetine HCl - 40 MG Oral Tablet;Therapy: (Recorded:26Jul2017) to RecordedPotassium Chloride 40 MEQ/15ML (20%) Oral Solution;Therapy: (Recorded:26Jul2017) to RecordedRanexa 500 MG Oral Tablet Extended Release 12 Hour;Therapy: (Recorded:26Jul2017) to RecordedTiZANidine HCl - 4 MG Oral Tablet;Therapy: 02Aug2017 to RecordedTraMADol HCl - 50 MG Oral Tablet;Therapy: 12Jul2017 to RecordedVentolin HFA 108 (90 Base) MCG/ACT Inhalation Aerosol Solution;Therapy: 28Sep2017 to Recorded Signatures Electronically signed by : Eduardo Almeida MD; Jan 02 2018 11:40AM EST (Author) [employer] Established Visit (Otolaryng ology)on 11-21-2017 Established Visit (Otolaryngology) Chief Complaint1. Right paranasal sinus glomangiopericytoma s/p resection . Chronic sinusitis s/p bilateral sinus surgery 11/06/17 3. Nasal airway obstruction s/p septoplasty and turbinate reductions . Rhinorrhea5. Facial pressure6. Decreased sense of smell7. COPD on supplemental oxygen History of Present IllnessReason for visit: SHADE TEIXEIRA patient presents since [...] Ana Ross; 04/27/2017 1:09:22 PM Current Meds Dale Nasal [place] 0.65 % Nasal Solution; 2-4 SPRAYS EACH NOSTRIL TWO-THREETIMES A DAY AND NEEDED;Therapy: [id number] to (Last Rx:14Nov2017) Requested for: [id number] Ordered Rx By: Eduardo Almeida; Dispense: 0 Days ; #:1 X 45 ML Bottle; Refill: 5;For: Chronic maxillary sinusitis; ZORA = N; Verified Transmission to [facility] Albuterol Sulfate (2.5 MG/3ML) 0.083% Inhalation Nebulization Solution;Therapy: (Recorded:26Jul2017) to Recorded Dispense: 0 Days ; #: Sufficient NEBU; Refill: 0; ZORA = N; Record; Last Updated By: Sharad Edward; 07/26/2017 1:50:25 PM AmLODIPine Besylate 10 MG Oral Tablet;Therapy: (Recorded:26Jul2017) to Recorded Dispense: 0 Days ; #: Sufficient TABS; Refill: 0; ZORA = N; Record; Last Updated By: Sharad Edward; 07/26/2017 1:50:24 PM Aspirin EC 81 MG Oral Tablet Delayed Release;Therapy: (Recorded:26Jul2017) to Recorded Dispense: 0 Days ; #: Sufficient TBEC; Refill: 0; ZORA = N; Record; Last Updated By: Sharad Edward; 07/26/2017 1:50:24 PM Atorvastatin Calcium 40 MG Oral Tablet;Therapy: (Recorded:26Jul2017) to Recorded Dispense: 0 Days ; #: Sufficient TABS; Refill: 0; ZORA = N; Record; Last Updated By: Sharad Edward; 07/26/2017 1:50:24 PM BD TB Syringe 27G X 1/2 1 ML Miscellaneous;Therapy: 03Jul2017 to Recorded Rx By: KIRIT; Dispense: 22 Days ; #:60 MISC; Refill: 0; ZORA = N; Record; Last Updated By: Yoselin Green; 10/10/2017 2:24:56 PM Clopidogrel Bisulfate 75 MG Oral Tablet;Therapy: (Recorded:26Jul2017) to Recorded Dispense: 0 Days ; #: Sufficient TABS; Refill: 0; ZORA = N; Record; Last Updated By: Sharad Edward; 07/26/2017 1:50:24 PM Clotrimazole 1 % External Cream;Therapy: 03Oct2017 to Recorded Rx By: NELSY; Dispense: 15 Days ; #:45 CREA; Refill: 0; ZORA = N; Record; Last Updated By: Yoselin Green; 10/10/2017 2:24:56 PM DOK 100 MG Oral Capsule; TAKE 1 CAPSULE BY MOUTH 2 TIMES DAILY WHILETAKING OXYCODONE;Therapy: 07Nov2017 to Recorded Rx By: JUAN PABLO; Dispense: 15 Days ; #:30 CAPS; Refill: 0; ZORA = N; Record; Last Updated By: Manda Abernathy; 11/14/2017 2:41:47 PM Fluticasone Propionate 50 MCG/ACT Nasal Suspension;Therapy: (Recorded:26Jul2017) to Recorded Dispense: 0 Days ; #: Sufficient SUSP; Refill: 0; ZORA = N; Record; Last Updated By: Sharad Edward; 07/26/2017 1:50:25 PM FreeStyle Lite Test In Vitro Strip;Therapy: 09May2017 to Recorded Rx By: KIRIT; Dispense: 50 Days ; #:100 STRP; Refill: 0; ZORA = N; Record; Last Updated By: Yoselin Green; 10/10/2017 2:24:56 PM Furosemide 40 MG Oral Tablet;Therapy: (Recorded:26Jul2017) to Recorded Dispense: 0 Days ; #: Sufficient TABS; Refill: 0; ZORA = N; Record; Last Updated By: Sharad Edward; 07/26/2017 1:50:24 PM Gemfibrozil 600 MG Oral Tablet;Therapy: (Recorded:26Jul2017) to Recorded Dispense: 0 Days ; #: Sufficient TABS; Refill: 0; ZORA = N; Record; Last Updated By: Sharad Edward; 07/26/2017 1:50:25 PM Glimepiride 4 MG Oral Tablet;Therapy: (Recorded:26Jul2017) to Recorded Dispense: 0 Days ; #: Sufficient TABS; Refill: 0; ZORA = N; Record; Last Updated By: Sharad Edward; 07/26/2017 1:50:25 PM HumuLIN R U-500 (CONCENTRATED) 500 UNIT/ML Subcutaneous Solution;Therapy: 17Jul2017 to Recorded Rx By: KIRIT; Dispense: 30 Days ; #:40 SOLN; Refill: 0; ZORA = N; Record; Last Updated By: Yoselin Green; 10/10/2017 2:24:56 PM Insulin Purified Lente (Pork) 100 U/ML SUSP;Therapy: (Recorded:26Jul2017) to Recorded Dispense: 0 Days ; #: Sufficient SUSP; Refill: 0; ZORA = N; Record; Last Updated By: Sharad Edward; 07/26/2017 1:50:25 PM Klor-Con M20 20 MEQ Oral Tablet Extended Release;Therapy: [id number] to Recorded Rx By: KIRIT; Dispense: 30 Days ; #:180 TBCR; Refill: 0; ZORA = N; Record; Last Updated By: Yoselin Green; 10/10/2017 2:24:56 PM LORazepam 1 MG Oral Tablet;Therapy: (Recorded:26Jul2017) to Recorded Dispense: 0 Days ; #: Sufficient TABS; Refill: 0; ZORA = N; Record; Last Updated By: Sharad Edward; 07/26/2017 1:50:25 PM MetFORMIN HCl - 1000 MG Oral Tablet;Therapy: (Recorded:27Apr2017) to Recorded Dispense: 0 Days ; #: Sufficient TABS; Refill: 0; ZORA = N; Record; Last Updated By: Ana Ross; 04/27/2017 1:09:22 PM MetOLazone 2.5 MG Oral Tablet;Therapy: (Recorded:26Jul2017) to Recorded Dispense: 0 Days ; #: Sufficient TABS; Refill: 0; ZORA = N; Record; Last Updated By: Sharad Edward; 07/26/2017 1:50:25 PM Metoprolol Succinate ER 100 MG Oral Tablet Extended Release 24 Hour;Therapy: (Recorded:26Jul2017) to Recorded Dispense: 0 Days ; #: Sufficient TB24; Refill: 0; ZORA = N; Record; Last Updated By: Sharad Edward; 07/26/2017 1:50:25 PM Metoprolol Succinate ER 200 MG Oral Tablet Extended Release 24 Hour;Therapy: [id number] to Recorded Rx By: KIRIT; Dispense: 30 Days ; #:30 TB24; Refill: 0; ZORA = N; Record; Last Updated By: Yoeslin Green; 10/10/2017 2:24:56 PM Multi Vitamin/Minerals Oral Tablet;Therapy: (Recorded:[id number]) to Recorded Dispense: 0 Days ; #: Sufficient TABS; Refill: 0; ZORA = N; Record; Last Updated By: Sharad Edward; 07/26/2017 1:50:25 PM Naproxen Sodium CAPS;Therapy: (Recorded:[id number]) to Recorded Dispense: 0 Days ; #: Sufficient CAPS; Refill: 0; ZORA = N; Record; Last Updated By: Sharad Edward; 07/26/2017 1:50:25 PM Nitroglycerin 0.4 MG Sublingual Tablet Sublingual;Therapy: (Recorded:16Bas8724) to Recorded Dispense: 0 Days ; #: Sufficient SUBL; Refill: 0; ZORA = N; Record; Last Updated By: Sharad Edward; 07/26/2017 1:50:25 PM OneRadha Lamb 33G Miscellaneous;Therapy: 19Sep2017 to Recorded Rx By: KIRIT; Dispense: 90 Days ; #:300 MISC; Refill: 0; ZORA = N; Record; Last Updated By: Yoselin Green; 10/10/2017 2:24:56 PM OxyCODONE HCl - 5 MG Oral Tablet; take 1 tablet by mouth every 6 hours if needed forpain;Therapy: [id number] to Recorded Rx By: JUAN PABLO; Dispense: 5 Days ; #:20 TABS; Refill: 0; ZORA = N; Record; Last Updated By: Manda Abernathy; 11/14/2017 2:41:47 PM PARoxetine HCl - 40 MG Oral Tablet;Therapy: (Recorded:[id number]) to Recorded Dispense: 0 Days ; #: Sufficient TABS; Refill: 0; ZORA = N; Record; Last Updated By: Sharad Edward; 07/26/2017 1:50:25 PM Potassium Chloride 40 MEQ/15ML (20%) Oral Solution;Therapy: (Recorded:26Jul2017) to Recorded Dispense: 0 Days ; #: Sufficient SOLN; Refill: 0; ZORA = N; Record; Last Updated By: Sharad Edward; 07/26/2017 1:50:25 PM Ranexa 500 MG Oral Tablet Extended Release 12 Hour;Therapy: (Recorded:26Jul2017) to Recorded Dispense: 0 Days ; #: Sufficient TB12; Refill: 0; ZORA = N; Record; Last Updated By: Sharad Edward; 07/26/2017 1:50:25 PM TiZANidine HCl - 4 MG Oral Tablet;Therapy: 02Aug2017 to Recorded Rx By: ROSLYN; Dispense: 30 Days ; #:30 TABS; Refill: 0; ZORA = N; Record; Last Updated By: Yoselin Green; 10/10/2017 2:24:56 PM TraMADol HCl - 50 MG Oral Tablet;Therapy: 12Jul2017 to Recorded Rx By: ROSLYN; Dispense: 7 Days ; #:14 TABS; Refill: 0; ZORA = N; Record; Last Updated By: Yoselin Green; 10/10/2017 2:24:56 PM Ventolin HFA 108 (90 Base) MCG/ACT Inhalation Aerosol Solution;Therapy: 28Sep2017 to Recorded Rx By: ANN; Dispense: 17 Days ; #:18 AERS; Refill: 0; ZORA = N; Record; Last Updated By: Yoselin Green; 10/10/2017 2:24:56 PM Physical ExamNose: On external exam there are neither lesions nor asymmetry of the nasal tip/dorsum. On anterior rhinoscopy, visualization posteriorly is limited on anterior examination. For this reason, to adequately evaluate posteriorly for masses, source of epistaxis, polypoid disease, debridement, and/or signs of infections, nasal endoscopy is indicated.(Please see procedure below.)SINONASAL ENDOSCOPY WITH DEBRIDEMENT (CPT 13319-29-59): Due to the patient's chronic sinusitis/chronic rhinitis, sinonasal endoscopy with debridement is indicated. After discussion of risks and benefits, and topical decongestion and anesthesia, an endoscope was used to perform nasal endoscopy with debridement. A timeout identifying the patient, the procedure, and any concerns was performed prior to beginning the procedure.Findings: Examination of the right nasal cavity revealed [...] He tolerated the procedure well. Results/Data Surgical [id number] 12:00Eduardo Moss Test NameResultFlagReferenceCase Surgical Pathology(Report)Name SHADE TEIXEIRA Pathologist: Patricia Lenz MD, Ph.D. [...] necrosis or bone invasion is identified. See [id number]. Electronically Signed Out By Patricia Lenz MD, [...] neoplasm of ethmoidal sinus (212.0) (D14.0) Provider Impressions1. Right paranasal sinus glomangiopericytoma s/p resection . Chronic sinusitis s/p bilateral sinus surgery 11/06/17 3. Nasal airway obstruction s/p septoplasty and turbinate reductions . Rhinorrhea5. Decreased sense of smell6. COPD on supplemental oxygenDiscussion: Shade appeared very well on examination today. I have recommended that he continue saline rinses and follow up in about 4-6 weeks. All questions were answered. Patient Discussion/SummaryPlease followup with me in 4-6 weeks for reevaluation or sooner with any questions or concerns. Please feel free to contact my office by calling [phone] with any questions. End of Encounter MedsAlbuterol Sulfate (2.5 MG/3ML) 0.083% Inhalation Nebulization Solution;Therapy: (Recorded:26Jul2017) to RecordedAmLODIPine Besylate 10 MG Oral Tablet;Therapy: (Recorded:26Jul2017) to RecordedAspirin EC 81 MG Oral Tablet Delayed Release;Therapy: (Recorded:26Jul2017) to RecordedAtorvastatin Calcium 40 MG Oral Tablet;Therapy: (Recorded:26Jul2017) to RecordedBD TB Syringe 27G X 1/2 1 ML Miscellaneous;Therapy: 03Jul2017 to RecordedClopidogrel Bisulfate 75 MG Oral Tablet;Therapy: (Recorded:26Jul2017) to RecordedClotrimazole 1 % External Cream;Therapy: 03Oct2017 to RecordedDOK 100 MG Oral Capsule; TAKE 1 CAPSULE BY MOUTH 2 TIMES DAILY WHILETAKING OXYCODONE;Therapy: 06Cal0765 to RecordedFluticasone Propionate 50 MCG/ACT Nasal Suspension;Therapy: (Recorded:26Jul2017) to RecordedFreeStyle Lite Test In Vitro Strip;Therapy: 09May2017 to RecordedFurosemide 40 MG Oral Tablet;Therapy: (Recorded:26Jul2017) to RecordedGemfibrozil 600 MG Oral Tablet;Therapy: (Recorded:26Jul2017) to RecordedGlimepiride 4 MG Oral Tablet;Therapy: (Recorded:26Jul2017) to RecordedHumuLIN R U-500 (CONCENTRATED) 500 UNIT/ML Subcutaneous Solution;Therapy: 17Jul2017 to RecordedInsulin Purified Lente (Pork) 100 U/ML SUSP;Therapy: (Recorded:26Jul2017) to RecordedKlor-Con M20 20 MEQ Oral Tablet Extended Release;Therapy: 29Aug2016 to RecordedLORazepam 1 MG Oral Tablet;Therapy: (Recorded:26Jul2017) to RecordedMetFORMIN HCl - 1000 MG Oral Tablet;Therapy: (Recorded:27Apr2017) to RecordedMetOLazone 2.5 MG Oral Tablet;Therapy: (Recorded:26Jul2017) to RecordedMetoprolol Succinate ER 100 MG Oral Tablet Extended Release 24 Hour;Therapy: (Recorded:26Jul2017) to RecordedMetoprolol Succinate ER 200 MG Oral Tablet Extended Release 24 Hour;Therapy: 29Aug2016 to RecordedMulti Vitamin/Minerals Oral Tablet;Therapy: (Recorded:26Jul2017) to RecordedNaproxen Sodium CAPS;Therapy: (Recorded:26Jul2017) to RecordedNitroglycerin 0.4 MG Sublingual Tablet Sublingual;Therapy: (Recorded:26Jul2017) to RecordedOcean Nasal [place] 0.65 % Nasal Solution; 2-4 SPRAYS EACH NOSTRIL TWO-THREETIMES A DAY AND NEEDED;Therapy: 14Nov2017 to (Last Rx:14Nov2017) Requested for: 14Nov2017 OrderedSandhya Lamb 33G Miscellaneous;Therapy: 19Sep2017 to RecordedOxyCODONE HCl - 5 MG Oral Tablet; take 1 tablet by mouth every 6 hours if needed forpain;Therapy: 79Mkl6248 to RecordedPARoxetine HCl - 40 MG Oral Tablet;Therapy: (Recorded:26Jul2017) to RecordedPotassium Chloride 40 MEQ/15ML (20%) Oral Solution;Therapy: (Recorded:51Mqp0890) to RecordedRanexa 500 MG Oral Tablet Extended Release 12 Hour;Therapy: (Recorded:52Nyp8102) to RecordedTiZANidine HCl - 4 MG Oral Tablet;Therapy: 86Mxp5481 to RecordedTraMADol HCl - 50 MG Oral Tablet;Therapy: 88Bxk2249 to RecordedVentolin HFA 108 (90 Base) MCG/ACT Inhalation Aerosol Solution;Therapy: 55Chj8375 to Recorded Signatures Electronically signed by : Eduardo Almeida MD; Nov 21 2017 9:18PM EST (Author) Normal [employer] Established Visit (Otolaryng ology)on 11-14-2017 Established Visit (Otolaryngology) Chief Complaint1. Right paranasal sinus glomangiopericytoma2. Rhinorrhea3. Facial pressure4. Nasal airway obstruction5. Decreased sense of smell6. Deviated nasal septum7. Nasal bleeding8. COPD on supplemental oxygen9. Anti-coagulation usage: currently on apixaban for history of DVT, ASA 81 for stent, Plavix History of Present IllnessDennis presents for his first postoperative follow-up since [...] Albuterol Sulfate (2.5 MG/3ML) 0.083% Inhalation Nebulization Solution;Therapy: (Recorded:26Jul2017) to Recorded Dispense: 0 Days ; #: Sufficient NEBU; Refill: 0; ZORA = N; Record; Last Updated By: Sharad Edward; 07/26/2017 1:50:25 PM AmLODIPine Besylate 10 MG Oral Tablet;Therapy: (Recorded:26Jul2017) to Recorded Dispense: 0 Days ; #: Sufficient TABS; Refill: 0; ZORA = N; Record; Last Updated By: Sharad Edward; 07/26/2017 1:50:24 PM Aspirin Childrens 81 MG Oral Tablet Chewable;Therapy: (Recorded:77Ubg7099) to Recorded Dispense: 0 Days ; #: Sufficient CHEW; Refill: 0; ZORA = N; Record; Last Updated By: Sharad Edward; 07/26/2017 1:50:25 PM Aspirin EC 81 MG Oral Tablet Delayed Release;Therapy: (Recorded:26Jul2017) to Recorded Dispense: 0 Days ; #: Sufficient TBEC; Refill: 0; ZORA = N; Record; Last Updated By: Sharad Edward; 07/26/2017 1:50:24 PM Atorvastatin Calcium 40 MG Oral Tablet;Therapy: (Recorded:26Jul2017) to Recorded Dispense: 0 Days ; #: Sufficient TABS; Refill: 0; ZORA = N; Record; Last Updated By: Sharad Edward; 07/26/2017 1:50:24 PM BD TB Syringe 27G X 1/2 1 ML Miscellaneous;Therapy: 03Jul2017 to Recorded Rx By: KIRIT; Dispense: 22 Days ; #:60 MISC; Refill: 0; ZORA = N; Record; Last Updated By: Yoselin Green; 10/10/2017 2:24:56 PM Clopidogrel Bisulfate 75 MG Oral Tablet;Therapy: (Recorded:26Jul2017) to Recorded Dispense: 0 Days ; #: Sufficient TABS; Refill: 0; ZORA = N; Record; Last Updated By: Sharad Edward; 07/26/2017 1:50:24 PM Clotrimazole 1 % External Cream;Therapy: 03Oct2017 to Recorded Rx By: NELSY; Dispense: 15 Days ; #:45 CREA; Refill: 0; ZORA = N; Record; Last Updated By: Yoselin Green; 10/10/2017 2:24:56 PM DOK 100 MG Oral Capsule; TAKE 1 CAPSULE BY MOUTH 2 TIMES DAILY WHILETAKING OXYCODONE;Therapy: 07Nov2017 to Recorded Rx By: JUAN PABLO; Dispense: 15 Days ; #:30 CAPS; Refill: 0; ZORA = N; Record; Last Updated By: Manda Abernathy; 11/14/2017 2:41:47 PM Doxycycline Hyclate 100 MG Oral Tablet; TAKE 1 TABLET BY MOUTH 2 TIMES DAILYUNTIL FOLLOW UP APPOINTMENT;Therapy: 24Vkc7985 to Recorded Rx By: JUAN PABLO; Dispense: 10 Days ; #:20 TABS; Refill: 0; ZORA = N; Record; Last Updated By: Manda Abernathy; 11/14/2017 2:41:47 PM Fluticasone Propionate 50 MCG/ACT Nasal Suspension;Therapy: (Recorded:26Jul2017) to Recorded Dispense: 0 Days ; #: Sufficient SUSP; Refill: 0; ZORA = N; Record; Last Updated By: Sharad Edward; 07/26/2017 1:50:25 PM FreeStyle Lite Test In Vitro Strip;Therapy: 09May2017 to Recorded Rx By: KIRIT; Dispense: 50 Days ; #:100 STRP; Refill: 0; ZORA = N; Record; Last Updated By: Yoselin Green; 10/10/2017 2:24:56 PM Furosemide 40 MG Oral Tablet;Therapy: (Recorded:26Jul2017) to Recorded Dispense: 0 Days ; #: Sufficient TABS; Refill: 0; ZORA = N; Record; Last Updated By: Sharad Edward; 07/26/2017 1:50:24 PM Gemfibrozil 600 MG Oral Tablet;Therapy: (Recorded:26Jul2017) to Recorded Dispense: 0 Days ; #: Sufficient TABS; Refill: 0; ZORA = N; Record; Last Updated By: Sharad Edward; 07/26/2017 1:50:25 PM Glimepiride 4 MG Oral Tablet;Therapy: (Recorded:26Jul2017) to Recorded Dispense: 0 Days ; #: Sufficient TABS; Refill: 0; ZORA = N; Record; Last Updated By: Sharad Edward; 07/26/2017 1:50:25 PM HumuLIN R U-500 (CONCENTRATED) 500 UNIT/ML Subcutaneous Solution;Therapy: 17Jul2017 to Recorded Rx By: KIRIT; Dispense: 30 Days ; #:40 SOLN; Refill: 0; ZORA = N; Record; Last Updated By: Yoselin Green; 10/10/2017 2:24:56 PM Insulin Purified Lente (Pork) 100 U/ML SUSP;Therapy: (Recorded:26Jul2017) to Recorded Dispense: 0 Days ; #: Sufficient SUSP; Refill: 0; ZORA = N; Record; Last Updated By: Sharad Edward; 07/26/2017 1:50:25 PM Klor-Con M20 20 MEQ Oral Tablet Extended Release;Therapy: 30Yfy1028 to Recorded Rx By: KIRIT; Dispense: 30 Days ; #:180 TBCR; Refill: 0; ZORA = N; Record; Last Updated By: Yoselin Green; 10/10/2017 2:24:56 PM LORazepam 1 MG Oral Tablet;Therapy: (Recorded:26Jul2017) to Recorded Dispense: 0 Days ; #: Sufficient TABS; Refill: 0; ZORA = N; Record; Last Updated By: Sharad Edawrd; 07/26/2017 1:50:25 PM MetFORMIN HCl - 1000 MG Oral Tablet;Therapy: (Recorded:27Apr2017) to Recorded Dispense: 0 Days ; #: Sufficient TABS; Refill: 0; ZORA = N; Record; Last Updated By: Ana Ross; 04/27/2017 1:09:22 PM MetOLazone 2.5 MG Oral Tablet;Therapy: (Recorded:26Jul2017) to Recorded Dispense: 0 Days ; #: Sufficient TABS; Refill: 0; ZORA = N; Record; Last Updated By: Sharad Edward; 07/26/2017 1:50:25 PM Metoprolol Succinate ER 100 MG Oral Tablet Extended Release 24 Hour;Therapy: (Recorded:26Jul2017) to Recorded Dispense: 0 Days ; #: Sufficient TB24; Refill: 0; ZORA = N; Record; Last Updated By: Sharad Edward; 07/26/2017 1:50:25 PM Metoprolol Succinate ER 200 MG Oral Tablet Extended Release 24 Hour;Therapy: 29Aug2016 to Recorded Rx By: KIRIT; Dispense: 30 Days ; #:30 TB24; Refill: 0; ZORA = N; Record; Last Updated By: Yoselin Green; 10/10/2017 2:24:56 PM Multi Vitamin/Minerals Oral Tablet;Therapy: (Recorded:26Jul2017) to Recorded Dispense: 0 Days ; #: Sufficient TABS; Refill: 0; ZORA = N; Record; Last Updated By: Sharad dEward; 07/26/2017 1:50:25 PM Naproxen Sodium CAPS;Therapy: (Recorded:26Jul2017) to Recorded Dispense: 0 Days ; #: Sufficient CAPS; Refill: 0; ZORA = N; Record; Last Updated By: Sharad Edward; 07/26/2017 1:50:25 PM Nitroglycerin 0.4 MG Sublingual Tablet Sublingual;Therapy: (Recorded:34Krv5310) to Recorded Dispense: 0 Days ; #: Sufficient SUBL; Refill: 0; ZORA = N; Record; Last Updated By: Sharad Edward; 07/26/2017 1:50:25 PM OneTocydney Cornell Lancets 33G Miscellaneous;Therapy: 19Sep2017 to Recorded Rx By: KIRIT; Dispense: 90 Days ; #:300 MISC; Refill: 0; ZORA = N; Record; Last Updated By: Yoselin Green; 10/10/2017 2:24:56 PM OxyCODONE HCl - 5 MG Oral Tablet; take 1 tablet by mouth every 6 hours if needed forpain;Therapy: 13Ttd5382 to Recorded Rx By: JUAN PABLO; Dispense: 5 Days ; #:20 TABS; Refill: 0; ZORA = N; Record; Last Updated By: Manda Abernathy; 11/14/2017 2:41:47 PM PARoxetine HCl - 40 MG Oral Tablet;Therapy: (Recorded:83Nmd7803) to Recorded Dispense: 0 Days ; #: Sufficient TABS; Refill: 0; ZORA = N; Record; Last Updated By: Sharad Edward; 07/26/2017 1:50:25 PM Potassium Chloride 40 MEQ/15ML (20%) Oral Solution;Therapy: (Recorded:00Yrj5042) to Recorded Dispense: 0 Days ; #: Sufficient SOLN; Refill: 0; ZORA = N; Record; Last Updated By: Sharad Edward; 07/26/2017 1:50:25 PM Ranexa 500 MG Oral Tablet Extended Release 12 Hour;Therapy: (Recorded:84Mlc5645) to Recorded Dispense: 0 Days ; #: Sufficient TB12; Refill: 0; ZORA = N; Record; Last Updated By: Sharad Edward; 07/26/2017 1:50:25 PM TiZANidine HCl - 4 MG Oral Tablet;Therapy: 02Aug2017 to Recorded Rx By: ROSLYN; Dispense: 30 Days ; #:30 TABS; Refill: 0; ZORA = N; Record; Last Updated By: Yoselin Green; 10/10/2017 2:24:56 PM TraMADol HCl - 50 MG Oral Tablet;Therapy: 04Huy8781 to Recorded Rx By: ROSLYN; Dispense: 7 Days ; #:14 TABS; Refill: 0; ZORA = N; Record; Last Updated By: Yoselin Green; 10/10/2017 2:24:56 PM Ventolin HFA 108 (90 Base) MCG/ACT Inhalation Aerosol Solution;Therapy: 28Sep2017 to Recorded Rx By: ANN; Dispense: 17 Days ; #:18 AERS; Refill: 0; ZORA = N; Record; Last Updated By: Yoselin Green; 10/10/2017 2:24:56 PM Physical ExamBilateral Mitchell splints were removed. Nose: On external exam there are neither lesions nor asymmetry of the nasal tip/dorsum. On anterior rhinoscopy, visualization posteriorly is limited on anterior examination. For this reason, to adequately evaluate posteriorly for masses, source of epistaxis, polypoid disease, debridement, and/or signs of infections, nasal endoscopy is indicated.(Please see procedure below.)SINONASAL ENDOSCOPY WITH DEBRIDEMENT (CPT 76527-44-54): Due to the patient's chronic sinusitis/chronic rhinitis, sinonasal endoscopy with debridement is indicated. After discussion of risks and benefits, and topical decongestion and anesthesia, an endoscope was used to perform nasal endoscopy with debridement. A timeout identifying the patient, the procedure, and any concerns was performed prior to beginning the procedure.Findings: Examination of the right nasal cavity revealed [...] sphenoid sinus was widely patent. Results/Data Surgical [id number] 12:00AMEduardo Almeida Test NameResultFlagReferenceCase Surgical Pathology(Report)Name SHADE TEIXEIRAConstance Pathologist: Patricia Lenz MD, Ph.D. [...] necrosis or bone invasion is identified. See [id number]. Electronically Signed Out By Patricia Lenz MD, [...] Chronic ethmoidal sinusitis (473.2) (J32.2) Orders Start: [place] Nasal [place] 0.65 % Nasal Solution; 2-4 SPRAYS EACH NOSTRILTWO-THREE TIMES A DAY AND NEEDED Rx By: Eduardo Almeida; Dispense: 0 Days ; #:1 X 45 ML Bottle; Refill: 5;For: Chronic maxillary sinusitis; ZORA = N; Verified Transmission to [facility] Education Material Provided for Patient; Status:Complete; Done: 36Nor4670 Ordered; For:Chronic maxillary sinusitis; Ordered By:Eduardo Almeida; Provider Impressions1. Right paranasal sinus glomangiopericytoma s/p resection . Chronic sinusitis s/p bilateral sinus surgery 11/06/17 3. Nasal airway obstruction s/p septoplasty and turbinate reductions . Rhinorrhea5. Facial pressure6. Decreased sense of smell7. COPD on supplemental oxygenDiscussion: Shade appeared well on examination today. His final margins were clear and his nasal breathing was very good following stent removal today. I recommended he initiate saline rinses along with saline spray routinely and follow-up in one week. He was amenable to this plan and all questions were answered. Patient Discussion/SummaryPlease followup with me in 1 week for reevaluation or sooner with any questions or concerns. Please feel free to contact my office by calling [phone] with any questions. End of Encounter MedsAlbuterol Sulfate (2.5 MG/3ML) 0.083% Inhalation Nebulization Solution;Therapy: (Recorded:26Jul2017) to RecordedAmLODIPine Besylate 10 MG Oral Tablet;Therapy: (Recorded:26Jul2017) to RecordedAspirin Childrens 81 MG Oral Tablet Chewable;Therapy: (Recorded:26Jul2017) to RecordedAspirin EC 81 MG Oral Tablet Delayed Release;Therapy: (Recorded:26Jul2017) to RecordedAtorvastatin Calcium 40 MG Oral Tablet;Therapy: (Recorded:29Dck4854) to RecordedBD TB Syringe 27G X 1/2 1 ML Miscellaneous;Therapy: 03Jul2017 to RecordedClopidogrel Bisulfate 75 MG Oral Tablet;Therapy: (Recorded:26Jul2017) to RecordedClotrimazole 1 % External Cream;Therapy: 03Oct2017 to RecordedDOK 100 MG Oral Capsule; TAKE 1 CAPSULE BY MOUTH 2 TIMES DAILY WHILETAKING OXYCODONE;Therapy: 38Reb0168 to RecordedDoxycycline Hyclate 100 MG Oral Tablet; TAKE 1 TABLET BY MOUTH 2 TIMES DAILYUNTIL FOLLOW UP APPOINTMENT;Therapy: 07Nov2017 to RecordedFluticasone Propionate 50 MCG/ACT Nasal Suspension;Therapy: (Recorded:26Jul2017) to RecordedFreeStyle Lite Test In Vitro Strip;Therapy: 09May2017 to RecordedFurosemide 40 MG Oral Tablet;Therapy: (Recorded:26Jul2017) to RecordedGemfibrozil 600 MG Oral Tablet;Therapy: (Recorded:26Jul2017) to RecordedGlimepiride 4 MG Oral Tablet;Therapy: (Recorded:26Jul2017) to RecordedHumuLIN R U-500 (CONCENTRATED) 500 UNIT/ML Subcutaneous Solution;Therapy: 17Jul2017 to RecordedInsulin Purified Lente (Pork) 100 U/ML SUSP;Therapy: (Recorded:26Jul2017) to RecordedKlor-Con M20 20 MEQ Oral Tablet Extended Release;Therapy: 29Aug2016 to RecordedLORazepam 1 MG Oral Tablet;Therapy: (Recorded:26Jul2017) to RecordedMetFORMIN HCl - 1000 MG Oral Tablet;Therapy: (Recorded:27Apr2017) to RecordedMetOLazone 2.5 MG Oral Tablet;Therapy: (Recorded:26Jul2017) to RecordedMetoprolol Succinate ER 100 MG Oral Tablet Extended Release 24 Hour;Therapy: (Recorded:26Jul2017) to RecordedMetoprolol Succinate ER 200 MG Oral Tablet Extended Release 24 Hour;Therapy: 29Aug2016 to RecordedMulti Vitamin/Minerals Oral Tablet;Therapy: (Recorded:26Jul2017) to RecordedNaproxen Sodium CAPS;Therapy: (Recorded:26Jul2017) to RecordedNitroglycerin 0.4 MG Sublingual Tablet Sublingual;Therapy: (Recorded:26Jul2017) to RecordedOcean Nasal [place] 0.65 % Nasal Solution; 2-4 SPRAYS EACH NOSTRIL TWO-THREETIMES A DAY AND NEEDED;Therapy: 14Nov2017 to (Last Rx:14Jcg8565) Requested for: 14Nov2017 MorrisOneRadha Lamb 33G Miscellaneous;Therapy: 19Sep2017 to RecordedOxyCODONE HCl - 5 MG Oral Tablet; take 1 tablet by mouth every 6 hours if needed forpain;Therapy: 07Nov2017 to RecordedPARoxetine HCl - 40 MG Oral Tablet;Therapy: (Recorded:26Jul2017) to RecordedPotassium Chloride 40 MEQ/15ML (20%) Oral Solution;Therapy: (Recorded:26Jin8847) to RecordedRanexa 500 MG Oral Tablet Extended Release 12 Hour;Therapy: (Recorded:19Xut1797) to RecordedTiZANidine HCl - 4 MG Oral Tablet;Therapy: 25Jgp2503 to RecordedTraMADol HCl - 50 MG Oral Tablet;Therapy: 12Jul2017 to RecordedVentolin HFA 108 (90 Base) MCG/ACT Inhalation Aerosol Solution;Therapy: 28Sep2017 to Recorded Signatures Electronically signed by : Eduardo Almeida MD; Nov 14 2017 7:28PM EST (Author) Normal [employer] TYPE + SCREENon 11-10-2017 ABO TYPE Canceled Normal [facility] Comment on above: Order Comment: TEST TYPE + SCREEN WAS CANCELLED, 11/10/2017 03:39 No specimen received. Performed By: #### A BID ####[facility] [place] [address] ANTIBODY SCREEN Canceled Normal [facility] Comment on above: Order Comment: TEST TYPE + SCREEN WAS CANCELLED, 11/10/2017 03:39 No specimen received. Performed By: #### A BID ####[facility] [place] [address] RH TYPE Canceled Normal [facility] Comment on above: Order Comment: TEST TYPE + SCREEN WAS CANCELLED, 11/10/2017 03:39 No specimen received. Performed By: #### A BID ####[facility] [place] [address] Daily Progress Note-ENTon Protein mass conc Service: ENT Subject khai Data:SHADE TEIXEIRA is a 61 year old Male who is Hospital Day # 2 and POD #1 forresection of right sinus mass;endoscopic sinus surgery, bilateral;septoplasty. Additional Information:S: Minimal oozing from nose overnight. Patient did not sleep well due to bed.He did not want to take tramadol as it gives him headaches. O:NADNo desaturations overnightMustache dressing in place with minimal shadowing A/P:61 y/o M with R glomangiopericytoma and chronic sinus disease, s/p OR forremoval of tumor, FESS (bilateral), septoplasty and inferior turbinatereduction, did well overnight.-Tolerating diet-Pain controlled with oxycodone-Minimal bleeding-Home meds-Ok for discharge this morning, will follow up in [address] [place] Mccormack [place] [id number] Objective Data: Objective Information:T [id number]/689 3%Date/Time11/07 4: 4: 4: 4: 4:04Range(36.5C - 37.5C ) (67 - 80 ) (18 - 20 ) (123 - 142 )/ (67 - 82 ) (93%- 96% )Highest temp of 37.5 C was recorded at 11/07 0:20 Pain with Activity reported at 11/06 22:31: 3Pain at Rest reported at 11/06 22:31: 3 SCIP Measures:Urinary Catheter Removed Post-Op Day 2: N/A, patient does not have urinarycatheterPatient on Beta Robinson Prior to Admission: yesRestarted on Beta Robinson by Post-Op Day 2: yesProphylactic antibiotics scheduled to be discontinued with 24 hr of anesthesiaend time (48 hr for cardiac surgery): N/A, patient not on prophylacticantibiotics Signature/Cosignature/Attest ation:Attending AttestationI reviewed the resident/fellow?s documentation anddiscussed the patient with the resident/fellow. I agree with theresident/fellow?s medical decision making as documented in the resident?s note. Electronic Signatures:Sarah Mccormack (Resident)) (Signed 07-Nov-2017 06:17)Authored: Service, Subjective Data, Objective Data, SCIP Measures,Signature/Cosignatu re/AttestationEduardo Almeida) (Signed 07-Nov-2017 07:24)Authored: Signature/Cosignature/Attest ationCo-Signer: Service, Subjective Data, Objective Data, SCIP Measures,Signature/Cosignatu re/Attestation Last Updated: 07-Nov-2017 07:24 by Eduardo Almeida) Normal [facility] Discharge Planning Noteon Discharge Planning Note Patient Learning:? Factors that Impact Ability to Learnacuteness of illness(1) Other Factors:? Functional Screen: In the recent/past 2-4 weeks, patient or family havenoticedno issues that require a rehabilitation consult at this time(2) Discharge Planning:Discharge Plannin11/07/17 - patient discharged home accompanied by cousin. All dischargeinstructions and prescriptions gone over with patient. All questions answered.Patient has no home-going needs.Ariana Cobb RN Final Disposition/Discharge:Dispos ition/Discharge Information: Discharge/Transfer Information:? Discharge/Transfer Date/Wreq45-[id number] 10:52? Discharged Accompanied Byfamily member? Discharge Modewheelchair? Transportation Methodprivate car? Valuables/Medications/Belong ings Returnedyes? Security Envelope Returnedyes? Belongings Commentpatient encouraged to check for all belongings? Final DispositionHome Electronic Signatures:Ariana Hernandes (RN) (Signed 07-Nov-2017 10:53)Authored: Discharge Planning Note, Final Disposition/Discharge Last Updated: 07-Nov-2017 10:53 by Ariana Hernandes (RN) References:1. Data Referenced From 5. Education 11/06/2017 8:11 PM2. Data Referenced From Admission Risk Screen - Adult 11/06/2017 8:11 PM Normal [facility] Discharge Summaryon 11-08-19 18 Discharge Summary Send Summary:Dischar ge Summary Providers:Provider RoleProvider Name? ReferringEloy Beth? PrimaryEloy Beth Note Recipients: Eloy Beth MD - [id number] [] Discharge: Summary:Admission Date: .06-Nov-2017 08:39:00Discharge Date: [id number] Physician at Discharge: Eduardo Almeida DAdmission Reason: observation after sinus surgeryFinal Discharge Diagnoses: Chronic rhinosinusitis, Mass of paranasal sinus,Procedures: Date: 06-Nov-2017 16:21:00Procedure Name: 1. Endoscopic endonasal resection of right sino-nasalglomagiopericytoma 2. Bilateral endoscopic sinus surgery with image guidance3. Endoscopic septoplasty4. Bilateral submucous inferior turbinate reduction Condition at Discharge: SatisfactoryDisposition at Discharge: .HomeHospital Course:61 y/o M with a R sinonasal glomangiopericytoma now s/p OR for removal of tumorwith partial septectomy, bilateral FESS, septoplasty and inferior turbinatereduction. Patient was admitted overnight for observation. He did will and wasdischarged the following day with pain well controlled and tolerating herregular diet. He will follow up with Dr. Almeida at the standard one weekinterval. Discharge Information: and Continuing Care:Discharge Instructions:Activity: activity as tolerated. May shower.. No pushing, pulling, or lifting objects greater than 10 pounds. Nutrition/Diet: resume normal diet Additional Orders: Additional Instructions: -Please use nasal saline spray frequently,at least 5 times per day in each nostril-You can start using your BiPAP machine on 11/07-You can restart your aspirin and plavix on Saturday 11/11 You may have oozing from your nose, this is expected. If you are having rapidbleeding from your nose please call the office if its during business hours. Ifafter 5pm or a weekend, please call [phone] and ask for the ENT residenton call. In addition, if you have clear drainage from your nose with a metallictaste in your mouth and a worsening headache, please give us a call. Follow Up Appointments:Follow-Up Appointment 01: Physician/Dept/Service: Dr. Eduardo Almeida Reason for Referral: post op visit in 1 week Discharge Medications: Home MedicationamLODIPine 10 mg oral tablet - 1 tab(s) orally once a dayaspirin 81 mg oral tablet - 1 tab(s) orally once a dayPlavix 75 mg oral tablet - 1 tab(s) orally once a daymetFORMIN 1000 mg oral tablet - 1 tab(s) orally 2 times a dayglimepiride 4 mg oral tablet - 1 tab(s) orally 2 times a dayatorvastatin 80 mg oral tablet - orally once a day (at bedtime)multivitamin - orally once a dayclotrimazole 1% topical cream (obsolete) - Apply topically to affected areaonce a dayfurosemide 20 mg oral tablet - orally 2 times a daymetOLazone 2.5 mg oral tablet - orally 2 times a weekMetoprolol Succinate ER 100 mg oral tablet, extended release - orally 2 timesa daypotassium chloride 20 mEq oral tablet, extended release - 2 tab(s) orally 3times a daysodium chloride 0.65% nasal spray - 5 spray(s) intranasally (both nostrils) 8times a daydoxycycline hyclate 100 mg oral tablet - 1 tab(s) orally 2 times a day untilfollow up appointmentoxyCODONE 5 mg oral tablet - 1 tab(s) orally every 6 hours as needed for pain G89.18 post operative painColace 100 mg oral capsule - 1 cap(s) orally 2 times a day while takingoxycodone PRN Medicationnitroglycerin 0.4 mg sublingual tablet - 1 tab(s) sublingual every 5 minutes,As Needed Lab Results - Pending: Surgical Pathology Drawn at 06-Nov-2017 00:00:00Radiology Results - Pending: None Signature/Cosignature/Attest ation:Attending AttestationI reviewed the resident/fellow?s documentation anddiscussed the patient with the resident/fellow. I agree with theresident/fellow?s medical decision making as documented in the resident?s note. Electronic Signatures:Sarah Mccormack (Resident)) (Signed 07-Nov-2017 06:21)Authored: Send Summary, Summary Content, Ongoing Care,Signature/Cosignature/A ttestationEduardo Almeida) (Signed 07-Nov-2017 07:25)Authored: Send Summary, Summary Content, Ongoing Care,Signature/Cosignature/A ttestationCo-Signer: Send Summary, Summary Content, Ongoing Care,Signature/Cosignature/A ttestation Last Updated: 07-Nov-2017 07:25 by Eduardo Almeida) Normal [facility] GLUCOSE-POCTon 11-07-2017 Glucose mass conc 265 mg/dL High 74 - 99 [facility] Comment on above: Performed By: #### A BID ####[facility] [place] [address] Admission Risk Screen - Adul ton 11-06-2017 Admission Risk Screen - Adult Allergies: Allergies:? No Known Allergies: Patient Verification:? New W ID Band Applied in my Departmentyes? Patient Identity Verified Bypatient? ID Band FULL Name, include Middle, spelling matches patient's ID used forverificationyes? ID Band Matches Patient ID used for Verficationyes? ID Band MRN Matches EMR MRNyes Advance Directive:? Advance Directive Medicalunable to answer? Advance Directive Mental Healthnot applicable Falls Screen:Type of AssessmentadmissionModerate Risk Factorspatient care equipment (scds, iv?s, chest tubes, sosa,etc)High Risk Factorssymptoms due to meds (sedatives, hypnotics, new diuretics andnew laxatives)Risk for Injury Associated with Fallrisk of surgical complications postsurgery (recent abdominal, thoracic surgery, lower limb amputation)Fall Risk Conclusionhigh falls risk with risk for associated injuryUniversal Safety InterventionsWDL *orient to call system *instruct to call forassistance before getting out of bed *non-slip footwear when patient is out ofbed *call arauz in reach *personal items and telephone in reach *physically safeenvironment (no spills or clutter) *bed in lowest position with wheels locked*appropriate side rails in place *room/bathroom lighting operational, lightcord in reach *appropriate signage on door Family Violence Screen:? Are you or have you been threatened or abused physically, emotionally, orsexually by anyone?no? Do you feel UNSAFE going back to the place where you are living?no? Clinical assessment: Are there any apparent signs of injuries/behaviors thatcould be related to abuse/neglectno? Social Service Consult for abuse/neglect needed this visit?no Functional screen:? Functional Screen: In the recent/past 2-4 weeks, patient or family havenoticedno issues that require a rehabilitation consult at this time Learning Assessment (Patient):? Patient is Able to be Assessed for Learningyes? Factors Influencing Readiness to Learnacuteness of illness? Factors that Impact Ability to Learnacuteness of illness? Devices/Methods Used to Communicatenone? Learning Preferencesindividual instruction? Cultural Considerationsnone? Developmental Considerationsnone? Amish Considerationsnone Learning Assessment (Other Learner):? Other learner availableno Suicide/Depression Screen:? During the past month, have you often been bothered by feeling down,depressed or hopeless?no (1)? During the past month, have you often had little interest or pleasure indoing things?no (1)? Have you had any thoughts of harming yourself?no (1)? Have you had any thoughts of harming anyone else?no (1) Adult Nutrition Screen:? Have you recently lost weight without tryingyes; 24-33 lb? Have you been eating poorly because of a decreased appetiteno? MST Score3? RiskMST = 0 or 1 Not at risk. Eating well with little or no weight loss? Nutrition Consult needed this visit?no? Can Patient Participate in Room Service?yes? Patient requires Paper Dishes/Plastic Utensilsno Pain Screen:? Pain ScaleCognitively Impaired Pain Assessment Tool? Pain Scale Educationteaching provided (1)? Current Pain Level4 = Moderate? Acceptable Pain Level4 = Moderate? Expression of Pain (nonverbal)guarding? Chronic Painno (1) Spiritual Screen:? Are there any cultural, spiritual, advent practices/values/needs that areimportant for us to know?no CAGE:Is this an injured patient at a Trauma Center ([facility] [place] / [facility]): no Vaccinations:Vaccination - Influenza Vaccination Screen:? Is it flu season? (between and )No Vaccination - Pneumonia Vaccination Screen:? Patient has received a previous pneumonia vaccine:yes Teofilo:Skin - Teofilo Scale: ? Teofilo: Sensory Perception (response to environment)(4) no impairment? Teofilo: Moisture (degree skin exposed to moisture)(3) occasionally moist? Teofilo: Activity (ability to walk)(3) walks occasionally? Teofilo: Mobility (amount/control of body movement)(3) slightly limited? Teofilo: Nutrition (quality of food intake)(2) probably inadequate? Teofilo: Friction and Shear(3) no apparent problem? Teofilo: Score18 ? Skin Intervention Orders (Nursing orders will be generated)elevate heels, upin chair < 1 hr intervals, turn side to side every 2 hrs, assess fortherapeutic equipment, assess pressure points, hygiene care, toilet/ADL every 2hrs awake, toilet/ADL every 4 hrs asleep, educate prevent/treat pressure ulcer Significant Indicatiors:Significant Indicators: Complete Pressure Injury:Pressure Injury Present on Admissionno Electronic Signatures:Leonel Hensley (RN) (Signed 06-Nov-2017 20:15)Authored: Admission Risk Screens, Vaccinations, Teofilo, Pressure Injury Last Updated: 06-Nov-2017 20:15 by Leonel Hensley (RN) References:1. Data Referenced From Patient Profile - Preop v2 11/06/2017 10:43 AM Normal [facility] Discharge Mryhdis3po 2 018 Protein mass conc Discharge Orders:Ant icipated Discharge Date:? Anticipated Discharge [id number]? Anticipated Discharge Time09:00 Problem List: Medical History:? Mass of paranasal sinus: Catalog Name: Other specified disorders of nose andnasal sinuses? Chronic rhinosinusitis: Catalog Name: Chronic sinusitis, unspecified Prelim Disch Dx:? Nasal mass: Catalog Name: Localized swelling, mass and lump, head Significant Events:Surgical Procedure: Clinical Events This Visit, 06-Nov-2017, resection ofright sinus mass;endoscopic sinus surgery, bilateral;septoplasty Activity:activity as tolerated. May shower. No pushing, pulling, or lifting objects greater than 10 pounds. Diet:? Dietresume normal diet Additional Orders:? Additional Instructions-Please use nasal saline spray frequently, at least 5 times per day in eachnostril-You can start using your BiPAP machine on 11/07-You can restart your aspirin and plavix on Saturday 11/11 You may have oozing from your nose, this is expected. If you are having rapidbleeding from your nose please call the office if its during business hours. Ifafter 5pm or a weekend, please call [phone] and ask for the ENT residenton call. In addition, if you have clear drainage from your nose with a metallictaste in your mouth and a worsening headache, please give us a call. Hospital Course (Home Care/Gold Form):Hospital Course:? Hospital Course: include significant abnormal lab [id number] y/o M with a R sinonasal glomangiopericytoma now s/p OR for removal of tumorwith partial septectomy, bilateral FESS, septoplasty and inferior turbinatereduction. Patient was admitted overnight for observation. He did will and wasdischarged the following day with pain well controlled and tolerating herregular diet. He will follow up with Dr. Almeida at the standard one weekinterval. Provider FINAL REVIEW of Orders:Final Review:? Final Review of Medication Reconciliation and Orders Completedby Physician? Reviewing ProviderSarah Mccormack MD (Resident) at 06-Nov-2017 16:54:19 Appointments:Follow-Up Appointment 01:? Physician/Dept/ServiceDr. Eduardo Almeida? Reason for Referralpost op visit in 1 week? Phone [phone]? CommentsPlease call to confirm date and time of appointment. Electronic Signatures:Sarah Mccormack ( (Resident)) (Signed 06-Nov-2017 16:54)Authored: Discharge Orders, Hospital Course (Home Care/Gold Form), ProviderFINAL REVIEW of Orders, Appointments, Gold Form - Nuisance Animal Damage Control Agent Summary Last Updated: 06-Nov-2017 16:54 by Sarah Mccormack ( (Resident)) Normal [facility] GLUCOSE-POCTon 11-06-2017 Glucose mass conc 245 mg/dL High 74 - 99 [facility] Comment on above: Performed By: #### T +S ####[facility] [place] [address] Glucose mass conc 221 mg/dL High 74 - 99 [facility] Comment on above: Performed By: #### T +S ####[facility] [place] [address] Glucose mass conc 233 mg/dL High 74 - 99 [facility] Comment on above: Performed By: #### T +S ####[facility] [place] [address] Glucose mass conc 247 mg/dL High 74 - 99 [facility] Comment on above: Performed By: #### T +S ####[facility] [place] [address] Glucose mass conc 291 mg/dL High 74 - 99 [facility] Comment on above: Performed By: #### B MP ####[facility] [place] [address] Glucose mass conc 283 mg/dL High 74 - 99 [facility] Comment on above: Performed By: #### B MP ####[facility] [place] [address] Glucose mass conc 283 mg/dL High 74 - 99 [facility] Comment on above: Performed By: #### B MP ####[facility] [place] [address] Glucose mass conc 308 mg/dL High 74 - 99 [facility] Comment on above: Performed By: #### B MP ####[facility] [place] [address] History and Physical - Surge ry > 30 dayson 11-06-2017 History and Physical - Surgery > 30 days History of Present Illness:History Present Illness:Reason for surgery: right sinonasal tumorHPI:61 y/o MRight paranasal sinus glomangiopericytoma (biopsied polypoid mass in R SER08/07/17) discovered by epistaxis, right nasal airway obstruction and anteriornasal drainagePMH: HTN, HLD, DM, FAVIAN, COPD, h/o DVT on apixaban and ASA 81/plavix for stent Fam Hx: negative for bleeding disordersSocial Hx: Reviewed in EMRAllergies: NKDAROS: negative except as above in HPIPhysical Exam:Gen- NADResp- nonlabored on RA, symmetric chest riseHead/Face- NCAT, no masses or lesionsEyes- EOMI, clear scleraEars- normal external ears, no gross lesions of EACsNose- anterior nares clear, no bleeding or drainageMouth- lips without lesions, no excessive droolingNeuro- alert and interactive Medications, imaging and pertinent labs reviewed in EMR A/PProceed with planned surgery Allergies: Allergies:? No Known Allergies: Home Medication Review:Home Medications Reviewed: no Impression/Procedure:Impress ion and Planned Procedure: endoscopic sinus surgery, septoplasty,inferior turbinate reduction Physical Exam: Respiratory/Thorax: non labored respirationsCardiovascular: no cyanosis Signatures/Attestation/Certi fication:Attending AttestationI saw and evaluated the patient. I personally obtainedthe hernandez and critical portions of the history and physical exam or wasphysically present for hernandez and critical portions performed by theresident/fellow. I reviewed the resident/fellow?s documentation and discussedthe patient with the resident/fellow. I agree with the resident/fellow?smedical decision making as documented in the resident?s note.I personally evaluated the patient (as noted in the above attestation) [id number] Provider ? Inpatient Certification StatementI certify this patient?betty for inpatient care based on the above documentation including; the orderto admit as inpatient, the anticipated length of stay, diagnosis, problem listand plan of care, and discharge plan. Electronic Signatures:Sarah Mccormack (Resident)) (Signed 06-Nov-2017 07:38)Authored: History of Present Illness, Allergies, Home Medication Review,Impression/Procedure, Physical Exam, Signatures/Attestation/Certi ficationEduardo Almeida) (Signed 06-Nov-2017 17:29)Authored: Signatures/Attestation/Certi ficationCo-Signer: History of Present Illness, Allergies, Home Medication Review,Impression/Procedure, Physical Exam, Signatures/Attestation/Certi fication Last Updated: 06-Nov-2017 17:29 by Eduardo Almeida) [facility] OPERATIVE REPORTon [address] OPERATIVE REPORT [place], [place] [address]Patient Name: SHADE TEIXEIRA. AMRN: [id number]: 1955Encounter Number: [id number] of Service: 11/06/2017Patient Location: [place] [address]APatient Type: ISurgeon: Eduardo Almeida, MDReport Type: Operative ReportsPREOPERATIVE DIAGNOSES: 1. Right paranasal sinus glomangiopericytoma.2. Rhinorrhea.3. Facial pressure.4. Nasal airway obstruction.5. Decreased sense of smell.6. Chronic sinusitis.7. Deviated nasal septum.8. Inferior turbinate hypertrophy.POSTOPERATIVE DIAGNOSES: 1. Right paranasal sinus glomangiopericytoma.2. Rhinorrhea.3. Facial pressure.4. Nasal airway obstruction.5. Decreased sense of smell.6. Chronic sinusitis.7. Deviated nasal septum.8. Inferior turbinate hypertrophy.OPERATION/PROCED URE: 1. Endoscopic endonasal resection of right sinonasal glomangiopericytoma, CPT 30156.2. Bilateral nasal endoscopy with total ethmoidectomy including sphenoidotomy with tissue removal, CPT 03221-75.3. Bilateral maxillary endoscopy with tissue removal, CPT 27725-80.4. Right nasal endoscopy with frontal sinusotomy, CPT 39617-P.5. Bilateral nasal endoscopy with aniceto bullosa resection, CPT 48092-26.6. Bilateral submucous inferior turbinate reduction, CPT 97662-80.7. Endoscopic septoplasty, CPT [address]253.8. Extracranial CT image guidance, CPT 57037.SURGEON: Eduardo Almeida M.D.CATERING COORDINATOR(S): Sarah Mccormack MDANESTHESIA: General endotracheal anesthesia.COMPLICATIONS: None.ESTIMATED BLOOD LOSS: Approximately 250 cc.SPECIMENS: 1. Multiple right frozen sections were obtained.2. Right sinus contents.3. Left sinus contents.4. Left maxillary sinus contents.5. Septum.6. Microdebrider contents.7. Right superior turbinate for permanent.FINDINGS: 1. Gross total resection of right sinonasal glomangiopericytoma.2. No evidence of CSF leakage following the procedure.3. Propel Contour stent placed within right frontal drainage pathway.4. Bilateral Mitchell splints placed at the conclusion of the procedure.INDICATIONS FOR PROCEDURE: Shade Teixeira is a 61-year-old [...] septum and ongoing mucosal inflammation within his sinuses.DESCRIPTION OF PROCEDURE: After informed consent was obtained and all questions were answered, the patient was brought to the operating room and placed supine on the operating room table. General anesthesia was induced by the anesthesia staff. The patient was orally intubated. The table was turned 90 degrees, and Afrin-soaked pledgets were placed within both the patient's nasal cavities.The CT image guidance system was brought into [...] draped in a standard fashion for endonasal surgery.Endoscopic septoplasty was performed. 1% lidocaine with 1:100,000 epinephrine was injected into both sides of the septum, axilla of each middle turbinate, and the anterior aspect of each inferior turbinate. After a period of approximately 15 minutes, a [place] incision was made on the right-hand side [...] the Oracio incision was closed with 4-0 chromic.Bilateral submucous inferior turbinate reductions were performed. An incision was made on the anterior aspect of each inferior turbinate, and submucosal tunnels were dissected throughout the length of each inferior turbinate. Using an inferior turbinate microdebrider blade, submucosal tissue was debulked throughout the length of each inferior turbinate, and each inferior turbinate was then outfractured.Bilateral nasal endoscopy with aniceto bullosa resection was performed. The aerated portion of each middle turbinate was identified and then resected. The posterior blood supplies on each side were then cauterized.Right maxillary endoscopy with tissue removal was performed. The uncinate was identified and resected. The antrostomy was opened from the lacrimal bone anteriorly to the posterior wall of the maxillary sinus posteriorly, and the natural drainage pathway was incorporated. Edematous mucosa within the sinus was debrided, but there was no purulence.Right nasal endoscopy with total ethmoidectomy including sphenoidotomy [...] orientations. Edematous mucosa at that level was debrided.Right nasal endoscopy with frontal sinusotomy was performed. With identification of the cranial base posteriorly, I proceeded anteriorly. Remnant anterior ethmoid air cells within the frontal drainage pathway were identified and removed, and the frontal sinus was cannulated and opened widely in all orientations. Edematous mucosa at that level was debrided, and a Propel Contour stent was placed.Left maxillary endoscopy with tissue removal was performed. [...] 70 degree scope, this lesion was grossly removed.Left nasal endoscopy with total ethmoidectomy including sphenoidotomy [...] orientations. Edematous mucosa at that level was debrided.Endoscopic endonasal resection of right glomangiopericytoma was performed. [...] was transported to the PACU in satisfactory condition.I attest, Dr. Eduardo Almeida was present for all hernandez portions of the surgical procedure and immediately available for all non-hernandez portions. There were no intraoperative complications. The patient will be admitted for further care.Eduardo Almeida MD ESTTT: 11/07/2017 05:09 AM ESTDICTATION NUMBER: [id number] JOB NUMBER: [id number]:Eloy Beth [phone] by treva 2017 07:56:00 PM Electronically Signed by Dr. Eduardo Almeida 2017 07:56:00 PM Normal [facility] Patient Profile - Adult v2on 11-06-2017 Protein mass conc Profile:Initial Info :How to be AddressedDenny(1)Spoken Language PreferredEnglish (1)Are you currently using the Personal Electronic Health Record or [facility]no(1)Stated Reason for Admissioncame in for surgery of tumor in the sinuses.[facility] Brought to Hospitalno General Health:Weight in kg126.9 kilogram(s)Weight in aia569.7 pound(s)Height in feet5 feetHeight in inch(es)Height in cm177.8 centimeter(s)BMI (kg/m2)40.141 square meterWeight Methodactual (measured)Scale TypestandingHeight MethodstatedBlood Avoidance/Restrictionsnone(1 )Previous Transfusion Reactionno(1) RSP Based Care:How would you like to participate in your care?completelyWhat is the number one concern for you during this hospitalization?nose bleedsWhat is the most important thing we can do to support you during thishospitalization?manage my condition and stop my nose from bleedingIs there anything we need to know to best care for you?nothing Substance:Current or Former Substance Use never: Cigarette/Tobacco, e-Cigarette/Vaping,Alcohol, Street Drugs Health Mgmt:Symptoms/Conditions Managed at HomerespiratoryRespiratory Managementnot managed Relationship/Environ:Primary Source of Support/Comfortno oneLives WithaloneLiving Arrangementsassisted living facilityResource/Environment al ConcernsnoneAnticipated Transition [place] term care facilityServices Anticipated at Transitioncase managerSignificant IndicatorsComplete Information Review:? Allergies, Home Meds and Significant Events have been Reviewed and Verifiedwith Patient/Familyno ALLERGY, INTOLERANCE, ADVERSE EVENT: Allergies:? No Known Allergies: Active Electronic Signatures:Leonel Hensley (RN) (Signed 06-Nov-2017 20:21)Authored: Profile, Additional Information Last Updated: 06-Nov-2017 20:21 by Leonle Hensley (RN) References:1. Data Referenced From Patient Profile - Preop v2 11/06/2017 10:43 AM Normal [facility] Patient Profile - Preop v2on 11-06-2017 Protein mass conc Profile:Initial Info :How to be AddressedDennySpoken Language PreferredEnglishSource of InformationpatientAre you currently using the Personal Electronic Health Record or MY[facility]AREnoAre you interested in learning more about [facility] for the management of yourhealthnot at this timeStated Reason for Admissionsinus surgeryPrimary Contact Name and NumberLeticiada sister [phone] on Visitors/Phone CallsnonePatient BelongingsnoneMedications Brought to Hospitalno General Health:Weight in kg126.9 kilogram(s)Weight in xhd153.7 pound(s)Weight Methodactual (measured)Scale TypestandingHeight in cm177.8 centimeter(s)Height in feet5 feetHeight in kwosgx92 inch(es)Height MethodstatedBMI (kg/m2)40.141 square meterPatient or Family Member Reaction to Anesthesiano previous reactionEquipment Currently Used at Homebath benchBlood Avoidance/RestrictionsnonePr evious Transfusion Reactionno Health Mgmt:Symptoms/Conditions Managed at Homecardiovascular; respiratory; cancerCancer Symptoms/ConditionslungCardi ovascular Symptoms/Conditionshypertens ion; dysrhythmiaRespiratory Symptoms/ConditionsCOPDBarri ers to Managing Healthnone Relationship/Environ:Lives Withalone(1)Living Arrangementsapartment(1)Reso urce/Environmental ConcernsnoneAnticipated Transition TohomeServices Anticipated at Transitionnone Substance:Current or Former Substance Use never: Street DrugsYES: Cigarette/Tobacco, Alcohol Substance Useunable to assessTobacco Cessation Education (provide if tobacco use within the last 12 mos)notapplicableAlcohol Use Statuspast alcoholAlcohol Swqaek43 or more drinksAlcohol TypeliquorMethod of Quittingquit on own Risk Screens:Advance Directive MedicalnoAdvance Directive Information Givenpatient/family declinedAdvance Directive Mental Healthnot applicableDuring the past month, have you often been bothered by feeling down, depressedor hopeless?noDuring the past month, have you often had little interest or pleasure in doingthings?noHave you had any thoughts of harming yourself?noHave you had any thoughts of harming anyone else?noPatient is Able to be Assessed for LearningyesFactors Influencing Readiness to Learnacuteness of illnessFactors that Impact Ability to LearnnoneDevices/Methods Used to CommunicatenoneLearning Preferencesskill demonstrationCultural ConsiderationsnoneDevelopmen aminah ConsiderationsnoneReligious ConsiderationsnoneOther learner availablenoFalls RiskPatient location auto qualifies him/her for HIGH RISK.Are there any cultural, spiritual, advent practices/values/needs that areimportant for us to know?noDo you want a visit/item from Pastoral Care?noWould you like your Process Operator/Tire Buster notified?noPain Scalenumerical 0-10Pain Scale Educationteaching providedCurrent Pain Level0 = NoneAcceptable Pain Level4 = ModerateChronic Painno Information Review:? Allergies, Home Meds and Significant Events have been Reviewed and Verifiedwith Patient/Familyyes Allergy, Intolerance, Adverse Event: Allergies:? No Known Allergies: Active Significant Events:06-Nov-2017? left knee surgery: Past Surgical History, [id number]? nasal endoscopy with biopsy: Past Surgical History, [id number]? tonsillectomy: Past Surgical History, [id number]? PTCA with stent: Past Surgical History, [id number]? abdominal surgery: Past Surgical History, [id number]? fissure repair: Past Surgical History, [id number]? bilat hip replacements: Past Surgical History, ? Pe.>10 yrs ago: Past Medical History, ? previous smoker: Past Medical History, ? hx etoh: Past Medical History, ? anxiety: Past Medical History, ? chf: Past Medical History, ? copd: Past Medical History, ? mi with stent: Past Medical History, ? anemia: Past Medical History, ? gerd: Past Medical History, ? favian wears cpap at home: Past Medical History, ? afib: Past Medical History, ? dm: Past Medical History, Active Electronic Signatures:Lissett Franklin (CLARITA) (Signed 06-Nov-2017 10:44)Authored: Profile, Additional Information Last Updated: 06-Nov-2017 10:44 by Lissett Frnaklin (CLARITA) References:1. Data Referenced From Patient Profile - Preop v2 08/07/2017 11:42 AM Normal [facility] Post Operative Note - ORon 0 11-06-2017 Post Operative Note - OR Post Operative Note: PreOp Diagnosis: Right sinus glomangiopericytoma, chronic sinusitis, septaldeviationPost-Procedur e Diagnosis: SameProcedure: 1. Endoscopic endonasal resection of right sino-nasalglomagiopericytoma 2. Bilateral endoscopic sinus surgery with image guidance3. Endoscopic septoplasty4. Bilateral submucous inferior turbinate reduction Surgeon: Rikkiident/Fellow/Oth er Assistant General Manager: Linaesthesia: GETAEstimastefani Blood Loss (mL): 250Specimen: yesComplications: NoneFindings: Right sinonasal mass grossly resectedPatient Returned To/Condition: PACU/stableAdditional Details: Right propel contours then placedBilateral Mitchell splint placed at the conclusion of the procedure Signature/Cosignature/Attest ation:Attending AttestationI was present for hernandez portions of the procedure and theprocedure lasted longer than 5 minutes. Electronic Signatures:Sarah Mccormack (Resident)) (Signed 06-Nov-2017 16:55)Authored: Post Operative Note, Signature/Cosignature/Attest Eduardo Nicolas) (Signed 06-Nov-2017 17:30)Authored: Post Operative Note, Signature/Cosignature/Attest ationCo-Signer: Post Operative Note, Signature/Cosignature/Attest ation Last Updated: 06-Nov-2017 17:30 by Eduardo Almeida) Normal [facility] Preop Checkliston 11-06-2017 Preop Checklist Preop Checklist:Preo p Checklist:? Arrival [id number]? Procedure Typeendoscopic resection of ethmoid cavity mass? NPO [id number] 22:00? ID Band Onyes? Allergy Bandno known allergies? Consent Signedyes? H&P Completeyes? Anesthesia Assessment Completedyes? EKG Performedsee results tab? Chest X-Ray Performedsee results tab? Chlorhexadine Bath Givennot applicable? Soap and water bath with hair shampoo the night before surgerynot applicable? SCD's Appliedsent to OR? STEFANI Hose Appliedyes? Denturesnot applicable? Prostheticsnot applicable? Hearing Aidsnot applicable? Valuables Securednot applicable? Glasses / Contactsnot applicable? Bowel Prepno Cardiovascular Assessment:? Apicalregular? Radial Pulsespalpable? Pedal Pulsespalpable? Extremitieswarm Respiratory Assessment:? Respirationsregular unlabored? Air Exchangeequal, good? Breath Soundsclear Neurological Assessment:? Level of Consciousnessoriented, alert? Mobilitylimitations difficulty ambulating, shortness of breath? Able to Express Selfyes? Age Appropriateyes? Emotional Statusanxious Preop Education:? Surgical Site Infection Preventionyes? Pain Scales and Managementyes Language / Communication:? Language / CommunicationEnglish Electronic Signatures:Lissett Franklin) (Signed 06-Nov-2017 10:42)Authored: Preop Checklist Last Updated: 06-Nov-2017 10:42 by Lissett Franklin) Normal [facility] TYPE + SCREENon 11-06-2017 ABO TYPE Canceled Normal [facility] Comment on above: Order Comment: TEST TYPE + SCREEN WAS CANCELLED, 11/06/2017 11:41 SCRUB TECHNICIAN ERROR.11/06/2017 11:41. Performed By: #### B MP ####[facility] [place] [address] ANTIBODY SCREEN Canceled Normal [facility] Comment on above: Order Comment: TEST TYPE + SCREEN WAS CANCELLED, 11/06/2017 11:41 SCRUB TECHNICIAN ERROR.11/06/2017 11:41. Performed By: #### B MP ####[facility] [place] [address] RH TYPE Canceled Normal [facility] Comment on above: Order Comment: TEST TYPE + SCREEN WAS CANCELLED, 11/06/2017 11:41 SCRUB TECHNICIAN ERROR.11/06/2017 11:41. Performed By: #### B MP ####[facility] [place] [address] [facility] Surgical Pathology Depar tmenton 11-06-2017 [facility] Surgical Pathology Department Name SHADE TEIXEIRA Pathologist: Patricia Lenz MD, Ph.D.Date of Procedure: 11/06/2017Date Received: 11/06/2017Date Reported 11/10/2017Submitting Physician: EDUARDO ALMEIDA MDLocation: TMOR Other External # FINAL DIAGNOSISA. RIGHT POSTERIOR INFERIOR SEPTUM: --RESPIRATORY MUCOSA WITH MILD CHRONIC INFLAMMATION--NO EVIDENCE OF TUMORB. RIGHT ANTERIOR INFERIOR SEPTUM: --RESPIRATORY MUCOSA WITH MILD CHRONIC INFLAMMATION--NO EVIDENCE OF TUMORC. RIGHT ANTERIOR SUPERIOR MIDDLE TURBINATE MARGIN: --RESPIRATORY MUCOSA WITH MILD CHRONIC INFLAMMATION--NO EVIDENCE OF TUMORD. RIGHT POSTERIOR SUPERIOR SEPTAL MARGIN: --RESPIRATORY MUCOSA WITH MILD CHRONIC INFLAMMATION--NO EVIDENCE OF TUMORE. RIGHT SUPERIOR TURBINATE: --BONE AND RESPIRATORY MUCOSA WITH MILD CHRONIC INFLAMMATION--NO EVIDENCE OF TUMORF. RIGHT SINUS CONTENTS: --BONE AND RESPIRATORY MUCOSA WITH MILD CHRONIC INFLAMMATION--NO EVIDENCE OF TUMORG. SEPTUM: --BONE AND CARTILAGE WITHOUT SIGNIFICANT PATHOLOGIC FINDINGS--NO EVIDENCE OF TUMORH. LEFT SINUS CONTENTS: --BONE AND CARTILAGE WITHOUT SIGNIFICANT PATHOLOGIC FINDINGS--NO EVIDENCE OF TUMORI. LEFT MAXILLARY SINUS CONTENTS: --RESPIRATORY MUCOSA WITH SUBMUCOSAL FIBROSIS AND CHOLESTEROL GRANULOMA.J. MICRODEBRIDER: --FRAGMENTS OF MESENCHYMAL NEOPLASM, CONSISTENT WITH SINONASALGLOMANGIOPERICYTOMA . SEE NOTENote:Part J contains multiple fragments of sinonasal mucosa and bone. There arescattered fragments of mesenchymal neoplasm, morphologically consistent withpreviously biopsied glomangiopericytoma. No evidence of necrosis or boneinvasion is identified. See [id number]. Electronically Signed Out By Patricia Lenz MD, Ph.D./To the signature on this report, the individual or group listed as making theFinal Interpretation/Diagnosis certifies that they have reviewed this case. Intraoperative Consultation:A: RT POSTERIOR INFERIOR SEPTUMFrozen Section 1:Date Ordered: 11/06/2017 13:58 Date Received: 11/06/2017 13:58 DateCalled: 11/06/2017 14:48Intraoperative Diagnosis:A: Fibrovascular soft tissue with mucinous glandsIntraoperative Consult Pathologist(s):MARY ELLEN WILLINGHAM M.D. (P)B: RT ANTERIOR INFERIOR SEPTUMFrozen Section 1:Date Ordered: 11/06/2017 13:58 Date Received: 11/06/2017 13:58 DateCalled: 11/06/2017 14:48Intraoperative Diagnosis:B: Fibromuscular soft tissue with mucinous glandsIntraoperative Consult Pathologist(s):MARY ELLEN WILLINGHAM M.D. (P)C: RT ANTERIOR SUPERIOR MIDDLE TURBINATE MARGINFrozen Section 1:Date Ordered: 11/06/2017 13:58 Date Received: 11/06/2017 13:58 DateCalled: 11/06/2017 14:48Intraoperative Diagnosis:C: Respiratory mucosa and fibrovascular soft tissue with mucinous glands deferto permanent (cannot exclude involvement by angiomatosis with certainty)Intraoperative Consult Pathologist(s):MARY ELLEN WILLINGHAM M.D. (P)D: RT POSTERIOR SUPERIOR SEPTAL M ARGINFrozen Section 1:Date Ordered: 11/06/2017 13:58 Date Received: 11/06/2017 13:58 DateCalled: 11/06/2017 14:48Intraoperative Diagnosis:D: Respiratory mucosa and fibrovascular soft tissue with mucinous glands deferto permanent (cannot exclude involvement by angiomatosis with certainty)Intraoperative Consult Pathologist(s):MARY ELLEN WILLINGHAM M.D. (P)ao11/06/2017 Clinical History:Right glomangiopericytomaSpecimens Submitted As:A: RT POSTERIOR INFERIOR SEPTUM B: RT ANTERIOR INFERIOR SEPTUM C: RT ANTERIOR SUPERIOR MIDDLE TURBINATE MARGIN D: RT POSTERIOR SUPERIOR SEPTAL M ARGIN E: RIGHT SUPERIOR TURBINATE F: RIGHT SINUS CONTENTS G: SEPTUM H: LEFT SINUS CONTENTS I: LEFT MAXILLARY SINUS CONTENTS J: MICRODEBRDIER Gross Description:A: Received fresh, labeled with the patient's name and hospital number and Rposterior inferior septum, is one piece of red-yellow soft tissue measuring0.5 x 0.3 x 0.1 cm. The specimen is submitted in toto in one cassette.NXJ/AOB: Received fresh, labeled with the patient's name and hospital number and Ranterior inferior septum, is one piece of red-yellow soft tissue measuring 0.6x 0.3 x 0.1 cm. The specimen is submitted in toto in one cassette.NXJ/AOC:Received fresh, labeled with the patient's name and hospital number and Ranterior superior middle turbinate, is one piece of red-yellow soft tissuemeasuring 0.6 x 0.5 x 0.2 cm. The specimen is submitted in toto in onecassette.NXJ/AOD:Received fresh, labeled with the patient's name and hospital number and Rposterior superior septum margin, is one piece of red-yellow soft tissuemeasuring 0.4 x 0.1 x 0.1 cm. The specimen is submitted in toto in onecassette.NXJ/AOE: Received fresh, labeled with the patient's name and hospital number and A,are multiple, irregular segments of light mejia cartilage, bone, and soft tissueaggregating to 1.5 x 1.0 x 0.7 cm. The specimen is submitted entirely in onecassette following decalcification.LMPF: Received fresh, labeled with the patient's name and hospital number andB-right sinus contents, are multiple, irregular segments of pink-tancartilage, bone, and soft tissue aggregating to 2.7 x 1.8 x 0.7 cm. Thespecimen is submitted in toto in one cassette following light decalcification.LMPG: Received fresh, labeled with the patient's name and hospital number and C,are multiple, irregular segments of light mejia cartilage and bone aggregating to3.0 x 2.2 x 0.8 cm. The specimen is submitted entirely in 2 cassettes followingdecalcification.LMP H: Received fresh, labeled with the patient's name and hospital number and D-Lsinus contents, are multiple, irregular segments of pink-mejia cartilage, bone,and soft tissue aggregating to 3.0 x 2.0 x 1.0 cm. The specimen is submittedentirely in 2 cassettes following decalcification.LMPI: Received in formalin, labeled with the patient's name and hospital numberand A, are multiple, irregular segments of soft tissue aggregating to 1.2 x0.4 x 0.1 cm.The specimen is entirely submitted in one cassette. IADJ: Received in formalin, labeled with the patient's name and hospital numberand B, are multiple, irregular segments of mejia-pink soft tissue, possiblecartilage aggregating to 3.5 x 2.4 x 2.2 cm. The specimen is submittedentirely in 5 cassettes. IADlmp/11/07/2017 Normal [facility] Comment on above: Performed By: #### A BID ####[facility] [place] [address] BASIC METABOLIC PANELon - Anion gap 3 molar conc 17 mmol/L Normal 10 - 20 [facility] Comment on above: Performed By: #### B MP ####[facility] [place] [address] Calcium mass conc 10.1 mg/dL Normal 8.6 - 10.6 [facility] Comment on above: Performed By: #### B MP ####[facility] [place] [address] Chloride molar conc 98 mmol/L Normal 98 - 107 [facility] Comment on above: Performed By: #### B MP ####[facility] [place] [address] Creatinine mass conc 0.69 mg/dL Normal 0.50 - 1.30 [facility] Comment on above: Performed By: #### B MP ####[facility] [place] [address] GFR- AM. >60 Normal >60 [facility] Comment on above: Result Comment: CALC ULATIONS OF ESTIMATED GFR ARE PERFORMED USING THE MDRD STUDY EQUATION FOR THE IDMS-TRACEABLE CREATININE METHODS. CLIN CHEM 2007;53:766-72 Performed By: #### B MP ####[facility] [place] [address] GFR-NON AM. >60 Normal >60 [facility] Comment on above: Performed By: #### B MP ####[facility] [place] [address] Glucose mass conc 238 mg/dL High 74 - 99 [facility] Comment on above: Performed By: #### B MP ####[facility] [place] [address] HCO3 molar conc (Bld) 30 mmol/L Normal 21 - 32 [facility] Comment on above: Performed By: #### B MP ####[facility] [place] [address] Potassium molar conc 3.7 mmol/L Normal 3.5 - 5.3 [facility] Comment on above: Performed By: #### B MP ####[facility] [id number] Sodium molar conc 141 mmol/L Normal 136 - 145 [facility] Comment on above: Performed By: #### B MP ####[facility] [id number] Urea nitrogen mass conc 16 mg/dL Normal 6 - 23 [facility] Comment on above: Performed By: #### B MP ####[facility] [place] [address] CBC AND DIFFERENTIALon 10-25 % AUTOMATED IMMATURE GRAN 0.6 % Normal 0.0 - 0.9 [facility] Comment on above: Result Comment: Perc ent differential counts (%) should be interpreted in the context of the absolute cell counts (cells/L). Performed By: #### C OAGS ####[facility] [place] [address] % NEUTROPHIL 72.3 % Normal 40.0 - 80.0 [facility] Comment on above: Performed By: #### C OAGS ####[facility] [place] [address] Basophils/100 WBC Auto (Bld) 1.0 % Normal 0.0 - 2.0 [facility] Comment on above: Performed By: #### C OAGS ####[facility] [place] [address] Basophils/100 WBC Auto (Bld) 0.07 x10E9/L Normal 0.00 - 0.10 [facility] Comment on above: Performed By: #### C OAGS ####[facility] [place] [address] Eosinophils Auto #/vol (Bld) 0.21 10*3/uL Normal 0.00 - 0.70 [facility] Comment on above: Performed By: #### C OAGS ####[facility] [place] [address] Eosinophils/100 WBC Auto (Bld) 3.0 % Normal 0.0 - 6.0 [facility] Comment on above: Performed By: #### C OAGS ####[facility] [place] [address] Erythrocyte distribution width Auto Ratio (RBC) 17.1 % High 11.5 - 14.5 [facility] Comment on above: Performed By: #### C OAGS ####[facility] [place] [address] Hematocrit Auto Volume Fraction (Bld) 39.7 % Low 41.0 - 52.0 [facility] Comment on above: Performed By: #### C OAGS ####[facility] [place] [address] Hemoglobin mass conc (Bld) 12.2 g/dL Low 13.5 - 17.5 [facility] Comment on above: Performed By: #### C OAGS ####[facility] [place] [address] Lymphocytes Auto #/vol (Bld) 0.83 10*3/uL Low 1.20 - 4.80 [facility] Comment on above: Performed By: #### C OAGS ####[facility] [place] [address] Lymphocytes/100 WBC Auto (Bld) 11.7 % Normal 13.0 - 44.0 [facility] Comment on above: Performed By: #### C OAGS ####[facility] [place] [address] MCHC Auto mass conc (RBC) 30.7 g/dL Low 32.0 - 36.0 [facility] Comment on above: Performed By: #### C OAGS ####[facility] [place] [address] MCV Auto Entitic volume (RBC) 83 fL Normal 80 - 100 [facility] Comment on above: Performed By: #### C OAGS ####[facility] [place] [address] Monocytes Auto #/vol (Bld) 0.81 10*3/uL Normal 0.10 - 1.00 [facility] Comment on above: Performed By: #### C OAGS ####[facility] [place] [address] Monocytes/100 WBC Auto (Bld) 11.4 % Normal 2.0 - 10.0 [facility] Comment on above: Performed By: #### C OAGS ####[facility] [place] [address] Neutrophils Auto #/vol (Bld) 5.13 10*3/uL Normal 1.20 - 7.70 [facility] Comment on above: Performed By: #### C OAGS ####[facility] [place] [address] Nucleated RBC/100 WBC Ratio (Bld) 0.0 /100 WBC Normal 0.0-0.0 [facility] Comment on above: Performed By: #### C OAGS ####[facility] [place] [address] Platelets Auto #/vol (Bld) 297 10*3/uL Normal 150 - 450 [facility] Comment on above: Performed By: #### C OAGS ####[facility] [place] [address] RBC Auto #/vol (Bld) 4.77 x10E12/L Normal 4.50 - 5.90 [facility] Comment on above: Performed By: #### C OAGS ####[facility] [place] [address] WBC Auto #/vol (Bld) 7.1 10*3/uL Normal 4.4 - 11.3 [facility] Comment on above: Performed By: #### C OAGS ####[facility] [place] [address] COAGULATION SCREENon 018 aPTT Coag time (Bld) 26 s Normal 25 - 36 [facility] Comment on above: Result Comment: THE APTT IS NO LONGER USED FOR MONITORING UNFRACTIONATED HEPARIN THERAPY. FOR MONITORING HEPARIN THERAPY, USE THE HEPARIN ASSAY. Performed By: #### C OAGS ####[facility] [place] [address] INR Coag RelTime (PPP) 1.1 {INR} Normal 0.9 - 1.1 [facility] Comment on above: Performed By: #### C OAGS ####[facility] [place] [address] Prothrombin time (PT) Coag time (PPP) 12.1 s Normal 9.8 - 12.7 [facility] Comment on above: Performed By: #### C OAGS ####[facility] [place] [address] TYPE + SCREENon 10-25-2017 ABO TYPE A Normal [facility] Comment on above: Performed By: #### B MP ####[facility] [place] [address] RH TYPE Positive Normal [facility] Comment on above: Performed By: #### B MP ####[facility] [place] [address] ANTIBODY SCREEN Negative Normal [facility] Comment on above: Performed By: #### B MP ####[facility] [place] [address] Chart Updateon 10-16-2017 Protein mass conc Active Problems 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 Patient opted for 11/06/17 at [facility].Patient was advised that CPM will call for an interview and for further instruction, and the OR facility will call one business day prior to surgery for the time of surgery. In the interim, the patient was instructed to call the office for any additional questions or concerns. Signatures Electronically signed by : Mecca Sanchez R.N.; Oct 16 2017 10:38AM EST (Author) Electronically signed by : Eduardo Almeida MD; Oct 16 2017 12:02PM EST (Author) Normal [facility] [employer] Established Visit (Otolaryng ology)on 10-11-2017 Established Visit (Otolaryngology) Chief Complaint1. Right paranasal sinus glomangiopericytoma2. Rhinorrhea3. Facial pressure4. Nasal airway obstruction5. Decreased sense of smell6. Deviated nasal septum7. Nasal bleeding8. COPD on supplemental oxygen9. Anti-coagulation usage: currently on apixaban for history of DVT, ASA 81 for stent, Plavix History of Present IllnessReason for visit: SHADE TEIXEIRA Patient presents since [...] Albuterol Sulfate (2.5 MG/3ML) 0.083% Inhalation Nebulization Solution;Therapy: (Recorded:26Jul2017) to Recorded Dispense: 0 Days ; #: Sufficient NEBU; Refill: 0; ZORA = N; Record; Last Updated By: Sharad Edward; 07/26/2017 1:50:25 PM AmLODIPine Besylate 10 MG Oral Tablet;Therapy: (Recorded:26Jul2017) to Recorded Dispense: 0 Days ; #: Sufficient TABS; Refill: 0; ZORA = N; Record; Last Updated By: Sharad Edward; 07/26/2017 1:50:24 PM Aspirin Childrens 81 MG Oral Tablet Chewable;Therapy: (Recorded:26Jul2017) to Recorded Dispense: 0 Days ; #: Sufficient CHEW; Refill: 0; ZORA = N; Record; Last Updated By: Sharad Edward; 07/26/2017 1:50:25 PM Aspirin EC 81 MG Oral Tablet Delayed Release;Therapy: (Recorded:26Jul2017) to Recorded Dispense: 0 Days ; #: Sufficient TBEC; Refill: 0; ZORA = N; Record; Last Updated By: Sharad Edward; 07/26/2017 1:50:24 PM Atorvastatin Calcium 40 MG Oral Tablet;Therapy: (Recorded:26Jul2017) to Recorded Dispense: 0 Days ; #: Sufficient TABS; Refill: 0; ZORA = N; Record; Last Updated By: Sharad Edward; 07/26/2017 1:50:24 PM BD TB Syringe 27G X 1/2 1 ML Miscellaneous;Therapy: 03Jul2017 to Recorded Rx By: KIRIT; Dispense: 22 Days ; #:60 MISC; Refill: 0; ZORA = N; Record; Last Updated By: Yoselin Green; 10/10/2017 2:24:56 PM Clopidogrel Bisulfate 75 MG Oral Tablet;Therapy: (Recorded:26Jul2017) to Recorded Dispense: 0 Days ; #: Sufficient TABS; Refill: 0; ZORA = N; Record; Last Updated By: Sharad Edward; 07/26/2017 1:50:24 PM Clotrimazole 1 % External Cream;Therapy: 03Oct2017 to Recorded Rx By: NELSY; Dispense: 15 Days ; #:45 CREA; Refill: 0; ZORA = N; Record; Last Updated By: Yoselin Green; 10/10/2017 2:24:56 PM Fluticasone Propionate 50 MCG/ACT Nasal Suspension;Therapy: (Recorded:26Jul2017) to Recorded Dispense: 0 Days ; #: Sufficient SUSP; Refill: 0; ZORA = N; Record; Last Updated By: Sharad Edward; 07/26/2017 1:50:25 PM FreeStyle Lite Test In Vitro Strip;Therapy: 09May2017 to Recorded Rx By: KIRIT; Dispense: 50 Days ; #:100 STRP; Refill: 0; ZORA = N; Record; Last Updated By: Yoselin Green; 10/10/2017 2:24:56 PM Furosemide 40 MG Oral Tablet;Therapy: (Recorded:26Jul2017) to Recorded Dispense: 0 Days ; #: Sufficient TABS; Refill: 0; ZORA = N; Record; Last Updated By: Sharad Edward; 07/26/2017 1:50:24 PM Gemfibrozil 600 MG Oral Tablet;Therapy: (Recorded:26Jul2017) to Recorded Dispense: 0 Days ; #: Sufficient TABS; Refill: 0; ZROA = N; Record; Last Updated By: Sharad Edward; 07/26/2017 1:50:25 PM Glimepiride 4 MG Oral Tablet;Therapy: (Recorded:26Jul2017) to Recorded Dispense: 0 Days ; #: Sufficient TABS; Refill: 0; ZORA = N; Record; Last Updated By: Sharad Edward; 07/26/2017 1:50:25 PM HumuLIN R U-500 (CONCENTRATED) 500 UNIT/ML Subcutaneous Solution;Therapy: 17Jul2017 to Recorded Rx By: KIRIT; Dispense: 30 Days ; #:40 SOLN; Refill: 0; ZORA = N; Record; Last Updated By: Yoselin Green; 10/10/2017 2:24:56 PM Insulin Purified Lente (Pork) 100 U/ML SUSP;Therapy: (Recorded:26Jul2017) to Recorded Dispense: 0 Days ; #: Sufficient SUSP; Refill: 0; ZORA = N; Record; Last Updated By: Sharad Edward; 07/26/2017 1:50:25 PM Klor-Con M20 20 MEQ Oral Tablet Extended Release;Therapy: [id number] to Recorded Rx By: KIRIT; Dispense: 30 Days ; #:180 TBCR; Refill: 0; ZORA = N; Record; Last Updated By: Yoselin Green; 10/10/2017 2:24:56 PM LORazepam 1 MG Oral Tablet;Therapy: (Recorded:26Jul2017) to Recorded Dispense: 0 Days ; #: Sufficient TABS; Refill: 0; ZORA = N; Record; Last Updated By: Sharad Edward; 07/26/2017 1:50:25 PM MetFORMIN HCl - 1000 MG Oral Tablet;Therapy: (Recorded:27Apr2017) to Recorded Dispense: 0 Days ; #: Sufficient TABS; Refill: 0; ZORA = N; Record; Last Updated By: Ana Ross; 04/27/2017 1:09:22 PM MetOLazone 2.5 MG Oral Tablet;Therapy: (Recorded:26Jul2017) to Recorded Dispense: 0 Days ; #: Sufficient TABS; Refill: 0; ZORA = N; Record; Last Updated By: Sharad Edward; 07/26/2017 1:50:25 PM Metoprolol Succinate ER 100 MG Oral Tablet Extended Release 24 Hour;Therapy: (Recorded:26Jul2017) to Recorded Dispense: 0 Days ; #: Sufficient TB24; Refill: 0; ZORA = N; Record; Last Updated By: Sharad Edward; 07/26/2017 1:50:25 PM Metoprolol Succinate ER 200 MG Oral Tablet Extended Release 24 Hour;Therapy: 29Aug2016 to Recorded Rx By: KIRIT; Dispense: 30 Days ; #:30 TB24; Refill: 0; ZORA = N; Record; Last Updated By: Yoselin Green; 10/10/2017 2:24:56 PM Multi Vitamin/Minerals Oral Tablet;Therapy: (Recorded:26Jul2017) to Recorded Dispense: 0 Days ; #: Sufficient TABS; Refill: 0; ZORA = N; Record; Last Updated By: Sharad Edward; 07/26/2017 1:50:25 PM Naproxen Sodium CAPS;Therapy: (Recorded:26Jul2017) to Recorded Dispense: 0 Days ; #: Sufficient CAPS; Refill: 0; ZORA = N; Record; Last Updated By: Sharad Edward; 07/26/2017 1:50:25 PM Nitroglycerin 0.4 MG Sublingual Tablet Sublingual;Therapy: (Recorded:26Jul2017) to Recorded Dispense: 0 Days ; #: Sufficient SUBL; Refill: 0; ZORA = N; Record; Last Updated By: Sharad Edward; 07/26/2017 1:50:25 PM OneTocydney Cornell Lancets 33G Miscellaneous;Therapy: 19Sep2017 to Recorded Rx By: KIRIT; Dispense: 90 Days ; #:300 MISC; Refill: 0; ZORA = N; Record; Last Updated By: Yoselin Green; 10/10/2017 2:24:56 PM PARoxetine HCl - 40 MG Oral Tablet;Therapy: (Recorded:26Jul2017) to Recorded Dispense: 0 Days ; #: Sufficient TABS; Refill: 0; ZORA = N; Record; Last Updated By: Sharad Edward; 07/26/2017 1:50:25 PM Potassium Chloride 40 MEQ/15ML (20%) Oral Solution;Therapy: (Recorded:26Jul2017) to Recorded Dispense: 0 Days ; #: Sufficient SOLN; Refill: 0; ZORA = N; Record; Last Updated By: Sharad Edward; 07/26/2017 1:50:25 PM Ranexa 500 MG Oral Tablet Extended Release 12 Hour;Therapy: (Recorded:26Jul2017) to Recorded Dispense: 0 Days ; #: Sufficient TB12; Refill: 0; ZORA = N; Record; Last Updated By: Sharad Edward; 07/26/2017 1:50:25 PM TiZANidine HCl - 4 MG Oral Tablet;Therapy: 02Aug2017 to Recorded Rx By: ROSLYN; Dispense: 30 Days ; #:30 TABS; Refill: 0; ZORA = N; Record; Last Updated By: Yoselin Green; 10/10/2017 2:24:56 PM TraMADol HCl - 50 MG Oral Tablet;Therapy: 12Jul2017 to Recorded Rx By: ROSLYN; Dispense: 7 Days ; #:14 TABS; Refill: 0; ZORA = N; Record; Last Updated By: Yoselin Green; 10/10/2017 2:24:56 PM Ventolin HFA 108 (90 Base) MCG/ACT Inhalation Aerosol Solution;Therapy: 28Sep2017 to Recorded Rx By: ANN; Dispense: 17 Days ; #:18 AERS; Refill: 0; ZORA = N; Record; Last Updated By: Yoselin Green; 10/10/2017 2:24:56 PM Results/DataThe patient and I reviewed his CT scan [...] Education Material Provided for Patient; Status:Complete; Done: [id number] Ordered; For:Benign neoplasm of ethmoidal sinus; Ordered By:Eduardo Almeida; Provider Impressions1. Right paranasal sinus glomangiopericytoma2. Rhinorrhea3. Facial pressure4. Nasal airway obstruction5. Decreased sense of smell6. Deviated nasal septum7. Nasal bleeding8. COPD on supplemental oxygen9. Anti-coagulation usage: currently on apixaban for history of DVT, ASA 81 for stent, PlavixDiscussion: Shade has been presented at tumor board and resection was recommended.The sinus surgery itself was discussed at length. The risks, benefits, and alternatives were explained in detail which include but is not limited to: persistence of symptoms, anesthesia, pain, bleeding, infection, need for nasal packing, double vision, vision loss, CSF leak requiring other procedures to repair, numbness of teeth/and or face, need for revision surgery, and unexpected risks. We also discussed potential recurrence of the lesion if it [...] of scarring associated with this type of procedure.He will be admitted following this procedure for close monitoring.We also discussed medical risks of this procedure most notably cardiac and pulmonary. He tolerated the previous procedure well but this procedure will be longer and we discussed the inherent medical risks. He understood these risks and wished to proceed.I will schedule the patient at their convenience going forward. All questions were answered.I spent greater than 15 minutes of ddev-zb-qypx time with the patient approximately 14 minutes counseling and coordinating care. Patient Discussion/SummaryPlease feel free to contact my office by calling [phone] with any questions. End of Encounter MedsAlbuterol Sulfate (2.5 MG/3ML) 0.083% Inhalation Nebulization Solution;Therapy: (Recorded:26Jul2017) to RecordedAmLODIPine Besylate 10 MG Oral Tablet;Therapy: (Recorded:26Jul2017) to RecordedAspirin Childrens 81 MG Oral Tablet Chewable;Therapy: (Recorded:26Jul2017) to RecordedAspirin EC 81 MG Oral Tablet Delayed Release;Therapy: (Recorded:26Jul2017) to RecordedAtorvastatin Calcium 40 MG Oral Tablet;Therapy: (Recorded:26Jul2017) to RecordedBD TB Syringe 27G X 1/2 1 ML Miscellaneous;Therapy: 03Jul2017 to RecordedClopidogrel Bisulfate 75 MG Oral Tablet;Therapy: (Recorded:26Jul2017) to RecordedClotrimazole 1 % External Cream;Therapy: 03Oct2017 to RecordedFluticasone Propionate 50 MCG/ACT Nasal Suspension;Therapy: (Recorded:26Jul2017) to RecordedFreeStyle Lite Test In Vitro Strip;Therapy: 09May2017 to RecordedFurosemide 40 MG Oral Tablet;Therapy: (Recorded:26Jul2017) to RecordedGemfibrozil 600 MG Oral Tablet;Therapy: (Recorded:26Jul2017) to RecordedGlimepiride 4 MG Oral Tablet;Therapy: (Recorded:26Jul2017) to RecordedHumuLIN R U-500 (CONCENTRATED) 500 UNIT/ML Subcutaneous Solution;Therapy: 17Jul2017 to RecordedInsulin Purified Lente (Pork) 100 U/ML SUSP;Therapy: (Recorded:26Jul2017) to RecordedKlor-Con M20 20 MEQ Oral Tablet Extended Release;Therapy: [id number] to RecordedLORazepam 1 MG Oral Tablet;Therapy: (Recorded:26Jul2017) to RecordedMetFORMIN HCl - 1000 MG Oral Tablet;Therapy: (Recorded:27Apr2017) to RecordedMetOLazone 2.5 MG Oral Tablet;Therapy: (Recorded:26Jul2017) to RecordedMetoprolol Succinate ER 100 MG Oral Tablet Extended Release 24 Hour;Therapy: (Recorded:26Jul2017) to RecordedMetoprolol Succinate ER 200 MG Oral Tablet Extended Release 24 Hour;Therapy: 29Aug2016 to RecordedMulti Vitamin/Minerals Oral Tablet;Therapy: (Recorded:26Jul2017) to RecordedNaproxen Sodium CAPS;Therapy: (Recorded:26Jul2017) to RecordedNitroglycerin 0.4 MG Sublingual Tablet Sublingual;Therapy: (Recorded:26Jul2017) to RecordedOneTouch Delica Lancets 33G Miscellaneous;Therapy: 19Sep2017 to RecordedPARoxetine HCl - 40 MG Oral Tablet;Therapy: (Recorded:26Jul2017) to RecordedPotassium Chloride 40 MEQ/15ML (20%) Oral Solution;Therapy: (Recorded:26Jul2017) to RecordedRanexa 500 MG Oral Tablet Extended Release 12 Hour;Therapy: (Recorded:26Jul2017) to RecordedTiZANidine HCl - 4 MG Oral Tablet;Therapy: 02Aug2017 to RecordedTraMADol HCl - 50 MG Oral Tablet;Therapy: 12Jul2017 to RecordedVentolin HFA 108 (90 Base) MCG/ACT Inhalation Aerosol Solution;Therapy: 28Sep2017 to Recorded Signatures Electronically signed by : Eduardo Almeida MD; Oct 11 2017 1:47PM EST (Author) Normal [facility] SINUS WO CONTRASTon 10-10 CT SINUS WO CONTRAST t Name: TEIXEIRASHADE Ross STUDY:CT SINUS WO CONTRAST; 10/10/2017 12:59 pm INDICATION:Signs/Symptoms: Right sino-nasal neoplasm Nasal congestion Benignneoplasm of middle ear, nasal cavity and accessory sinuses . COMPARISON:None. ORDERING CLINICIAN:EDUARDO ALMEIDA TECHNIQUE:Thin section axial images were obtained through the paranasalsinuses. Coronal and sagittal reconstruction images were generated.Soft tissue and bone windows were reviewed. FINDINGS:Mfxq-yr-wdjihafl S-shaped nasal septal deviation. Bilateral middleturbinate aniceto bullosa, an anatomic variant of normal. Theinfundibulum of each ostiomeatal complex was patent. There is mucosalthickening of the left inferior turbinate. Superiorly in the rightnasal passage, there is a nodular soft tissue density measuring 19 mmlongitudinally by 10 mm transversely by 18 mm AP. There is a 21 mmanterior inferior left maxillary sinus retention cyst, and another 14mm diameter retention cyst just cephalad to this, and mild inferiorleft maxillary sinus mucosal thickening. There was fpji-bl-yexjkxaoznhdjuy thickening in the right maxillary sinus, most pronouncedalong the floor. There is mild scattered mucosal thickening inseveral bilateral ethmoid air cells, right greater than left. Thefrontal and sphenoid sinuses are clear. There is no fluid level. There are periapical lucency surrounding the roots of the rightmaxillary 2nd premolar and 1st molar, and also the left maxillary 2ndpremolar and 2nd molar, consistent with periapical abscesses.Periapical abscess involving the lateral root of the right 2ndpremolar does appear to extend into the bottom of the right maxillarysinus. There was no mass posteriorly in the region of the nasopharynx. No suspicious soft tissue mass or adenopathy in the imaged neck. Mild prominence of ventricles and sulci throughout the brain.. Therewas no gross midline shift or acute intracranial bleed. Each orbitwas grossly intact. IMPRESSION:Rhinosinusitis as described, without fluid level. Also, suspectedsuperior right nasal polyp. Clinical correlation needed. Qguu-cs-heoxbfzr S-shaped nasal septal deviation. Bilateral middleturbinate aniceto bullosa. Periapical abscesses involving bilateral maxillary 2nd premolars,right maxillary 1st molar, and left maxillary 2nd molar. Mild volume loss in the brain. 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 : Right sino-nasal neoplasm Chart UpdateProgress Note Free Text_UH: I spoke to the patient via telephone. We had some difficulty connecting with him over the telephone. I presented him at tumor board within the last few weeks. No further imaging was recommended with the exception of the repeat CT scan of the sinuses. I will order this today and I asked the patient to follow-up in clinic to review the results and to formulate a plan going forward. He was amenable to proceeding with surgical intervention. We can discuss the details of this at his next clinic visit. Signatures Electronically signed by : Eduardo Almeida MD; Sep 17 2017 3:46PM EST (Author) Normal [facility] Note-Head and Neck Note:Tumor Board Roshni TEIXEIRA was presented at Head and Neck Tumor Board Conference by Dr.Kenneth Almeida.Impression: Presented with Epistaxis, rhinorrhea and nasal airway obstruction found tohave right nasal cavity mass, biopsy revealing sinonasal glomangiopericytoma.Recommen dations: Surgical excision.DisclaimerSCC tumor board recommendations represent the consensus opinion of physicianspresent at a weekly patient care conference. The treating SCC physician is notalways present, and many of the physicians formulating the recommendation havenot personally seen or examined the patient under discussion. It is understoodthat the treating SCC physician considers the expertise of the Tumor BoardRecommendation in formulating his/her plan for the patient. However, in manysituations, based on individualized patient considerations, a different plan isdetermined by the treating physician to be the optimal medical management.Electronic Signatures:Berry Woodward (N MGR) (Signed 01-Sep-2017 10:58) Authored: Tumor Board, DisclaimerLast Updated: 01-Sep-2017 10:58 by Berry Woodward (N MGR) Normal [facility] SURF MARKERS >15,PATH REVon 08-10-2017 PATH REV. >15 MARKERS MathewSEVERINO Normal [facility] Comment on above: Result Comment: By h er/his signature above, the Pathologist listed as making the final interpretation certifies that she/he has personally reviewed this case. Performed By: #### C OAGS ####[facility] [place] [address] SURFACE MARKERS LYMPHOMA ROBLES Sylwia 08-10-2017 DIAGNOSIS SEE BELOW Normal [facility] Comment on above: Result Comment: Pred ominance of CD45 negative and/or non- viable events.No clonal B cell or abnormal T cell population identified. Performed By: #### C OAGS ####[facility] [place] [address] NOTE SEE BELOW Normal [facility] Comment on above: Result Comment: Augie cabrales with separate surgical pathology report [id number]. Performed By: #### C OAGS ####[facility] [place] [address] FLOW CYTOMETRY TESTon 2017 FLOW TEST ORDERED LYMPHOMA PANEL Normal [facility] Comment on above: Performed By: #### C OAGS ####[facility] [place] [address] SURFACE MARKERS LYMPHOMA ROBLES Sylwia 08-09-2017 CD19 0 % of Lymph Normal [facility] Comment on above: Performed By: #### C OAGS ####[facility] [place] [address] CD4 52 % of Lymph Normal [facility] Comment on above: Performed By: #### C OAGS ####[facility] [place] [address] CD8 43 % of Lymph Normal [facility] Comment on above: Performed By: #### C OAGS ####[facility] [place] [address] CELL COUNT 0.51 x10E9/L Normal [facility] Comment on above: Performed By: #### C OAGS ####[facility] [place] [address] Lymphocytes/100 WBC Auto (Bld) 1 % Normal [facility] Comment on above: Performed By: #### C OAGS ####[facility] [place] [address] METHOD SEE BELOW Normal [facility] Comment on above: Result Comment: This test is a multicolor, whole blood lysis assay. It wasdeveloped and its performance characteristics determined by theDepartment of Pathology, [facility], andhas not been cleared or approved by the U.S. Food and DrugAdministration. The laboratory is regulated under CLIA asqualified to perform high complexity testing. This test is usedfor clinical purposes. It should not be regarded asinvestigational or for research.Immunophenotypic analysis was performed using the followingantibodies: CD45, CD71, CD30, CD40, CD95, CD14, CD56, CD7,CD4, CD8, CD3, CD2, CD26, CD5, CD43, CD23, CD20, CD19, CD11c,CD180, CD1c, CD79b, [place], Lambda, CD38, CD10. Performed By: #### C OAGS ####[facility] [place] [address] NK 0 % of Lymph Normal [facility] Comment on above: Performed By: #### C OAGS ####[facility] [place] [address] NUMBER OF CELLS COLLECTED 200 per tube Normal [facility] Comment on above: Performed By: #### C OAGS ####[facility] [place] [address] SPECIMEN SITE Nasal Mass Normal [facility] Comment on above: Performed By: #### C OAGS ####[facility] [place] [address] SPECIMEN VIABILITY Acceptable Normal [facility] Comment on above: Performed By: #### C OAGS ####[facility] [place] [address] FLOW CYTOMETRY TESTon 2017 SOURCE TISSUE Normal [facility] Comment on above: Result Comment: NASA L [id number] Performed By: #### C OAGS ####[facility] [place] [address] GLUCOSE-POCTon 08-07-2017 Glucose mass conc 119 mg/dL High 74 - 99 [facility] Comment on above: Performed By: #### C BC ####[facility] [place] [address] History and Physical - Surgi laverne Update < 30 dayson 08-07-2017 History and Physical - Surgical Update < 30 days History & Physical Reviewed:I have reviewed the History and Physical dated: [id number] and Physical reviewed and relevant findings noted. Patient examined toreview pertinent physical findings.: No significant changesHome Medications Reviewed: no changes notedAllergies Reviewed: no changes notedThis patient has been seen and discussed with the attending physicianresponsible for performing the procedure: yesSignatures/Attestation/Ce rtification:Attending Attestation I saw and evaluated the patient. I personally obtainedthe hernandez and critical portions of the history and physical exam or wasphysically present for hernandez and critical portions performed by theresident/fellow. I reviewed the resident/fellow?s documentation and discussedthe patient with the resident/fellow. I agree with the resident/fellow?smedical decision making as documented in the resident?s note.I personally evaluated the patient (as noted in the above attestation) [id number] Provider ? Inpatient Certification Statement N/A - observationpatient/other outpatient visitsElectronic Signatures:Hay Medrano (Resident)) (Signed 07-Aug-2017 11:39) Authored: History & Physical Reviewed, Signatures/Attestation/Certi kyleationEduardo Almeida) (Signed 07-Aug-2017 14:37) Authored: Signatures/Attestation/Certi fication Co-Signer: History & Physical Reviewed, Signatures/Attestation/Certi ficationLast Updated: 07-Aug-2017 14:37 by Eduardo Almeida) [facility] OPERATIVE REPORTon 8 OPERATIVE REPORT [facility] [place], [place] [address]Patient Name: SHADE TEIXEIRA. AMRN: [id number]: 1955Encounter Number: [id number] [id number] Service: 08/07/2017Patient Location: [place] [address]Patient Type: OSurgeon: Augusto Negroort Type: Operative ReportsPREOPERATIVE DIAGNOSIS:1. Right paranasal sinus mass.2. Rhinorrhea.3. Facial pressure.4. Nasal airway obstruction.5. Decreased sense of smell.6. Deviated nasal septum.POSTOPERATIVE DIAGNOSIS:1. Right paranasal sinus mass.2. Rhinorrhea.3. Facial pressure.4. Nasal airway obstruction.5. Decreased sense of smell.6. Deviated nasal septum.OPERATION/PROCEDURE:R ight nasal endoscopy with biopsy, CPT 54123-Z.SURGEON:Eduardo Almeida MDASSISTANT(S):Hay Medrano MDANESTHESIA:General endotracheal anesthesia.COMPLICATIONS:Non e.ESTIMATED BLOOD LOSS:Approximately 5 cc.SPECIMENS:1. Right paranasal sinus mass for permanent.2. Right paranasal sinus mass for lymphoma protocol.FINDINGS:Nasal cavity mass identified in the region of the sphenoethmoid recess and wasbiopsied.INDICATIONS FOR PROCEDURE:Shade Teixeira is a 61-year-old male, who I initially met on April 27, 2017,with concerns as listed in the preoperative diagnosis. He had undergoneimaging demonstrating a lesion within the right nasal cavity/paranasal sinuseswithout bony destruction. He had inflammatory changes within his othersinuses. At the time of his clinic visit, he was anticoagulated, and wediscussed a number of options, and he was comfortable proceeding to theoperating room for biopsy under a general anesthetic. Once we had pathologyfrom this biopsy, we can proceed with additional surgical options if desiredfor the remainder of his symptoms.DESCRIPTION OF PROCEDURE:After informed consent was obtained and all questions were answered, thepatient was brought to the operating room and placed supine on the operatingroom table. General anesthesia was induced by the anesthesia staff, and thepatient was orally intubated. The table was turned 90 degrees. Afrin-soakedpledgets were placed within the right nasal cavity.Right nasal endoscopy with biopsy was performed. The Afrin-soaked pledgetswere removed, and nasal endoscopy was performed. He had a deviated septum tothat side. There was some scarring between the inferior turbinate and theseptum. I lateralized the middle turbinate and was able to visualize apolypoid appearing mass in the region of the sphenoethmoid recess. This wasbiopsied multiple times both for permanent pathology as well as for lymphomaprotocol. Hemostasis was achieved with Afrin as well as Surgicel placed atthe base of the biopsy. There was no evidence of CSF leakage. The patientwas returned to the anesthesia staff and extubated in the operating roomwithout complication. The patient was transferred to PACU in stable condition.I attest, Dr. Eduardo Almeida participated in the entirety of the surgicalprocedure. There were no intraoperative complications noted.Eduardo Almeida, MDDD: 08/07/2017 02:50 PM ESTTT: 08/07/2017 10:48 PM ESTDICTATION NUMBER: [id number] JOB NUMBER: [id number]:Eloy Beth, Lrying by treva 08/13/2017 12:45:[address] Eduardo Alme[address] 08/13/2017 12:45:09 PM Normal [facility] Patient Profile - Preop v2on 08-07-2017 Protein mass conc Profile:Initial Info :How to be Addressed DennisSpoken Language Preferred EnglishSource of Information patientAre you currently using the Personal Electronic Health Record or Mediclinic InternationalMandae noAre you interested in learning more about [facility] for the management of yourhealth not at this timeStated Reason for Admission sinus surgeryPrimary Contact Name and Number Joleen sister [phone] on Visitors/Phone Calls nonePatient Belongings noneMedications Brought to Hospital noGeneral Health:Weight in kg 129.4 kilogram(s)Weight in lbs 285.2 pound(s)Weight Method actual (measured)Scale Type standingHeight in cm 177.8 centimeter(s)Height in feet 5 feetHeight in inches 10 inch(es)Height Method statedBMI (kg/m2) 40.932 square meterPatient or Family Member Reaction to Anesthesia no previous reactionEquipment Currently Used at Home bath benchBlood Avoidance/Restrictions nonePrevious Transfusion Reaction noHealth Mgmt:Symptoms/Conditions Managed at Home cardiovascular; respiratory; cancerCancer Symptoms/Conditions lungCardiovascular Symptoms/Conditions hypertension; dysrhythmiaRespiratory Symptoms/Conditions COPDBarriers to Managing Health noneRelationship/Environ:Bette es With aloneLiving Arrangements apartment(1)Resource/Environ mental Concerns noneAnticipated Transition To homeServices Anticipated at Transition noneSubstance:Current or Former Substance Use never: Street Drugs YES: Cigarette/Tobacco, AlcoholSubstance Use unable to assessTobacco Cessation Education (provide if tobacco use within the last 12 mos)notapplicableAlcohol Use Status past alcoholAlcohol Amount 10 or more drinksAlcohol Type liquorMethod of Quitting quit on ownRisk Screens:Advance Directive Medical noAdvance Directive Information Given patient/family declinedAdvance Directive Mental Health not applicableDuring the past month, have you often been bothered by feeling down, depressedor hopeless? noDuring the past month, have you often had little interest or pleasure in doingthings? noHave you had any thoughts of harming yourself? noHave you had any thoughts of harming anyone else? noPatient is Able to be Assessed for Learning yesFactors Influencing Readiness to Learn acuteness of illnessFactors that Impact Ability to Learn noneDevices/Methods Used to Communicate noneLearning Preferences skill demonstrationCultural Considerations noneDevelopmental Considerations noneReligious Considerations noneOther learner available noFalls Risk Patient location auto qualifies him/her for HIGH RISK.Are there any cultural, spiritual, advent practices/values/needs that areimportant for us to know? noDo you want a visit/item from Pastoral Care? noWould you like your Process Operator/Tire Buster notified? noPain Scale numerical 0-10Pain Scale Education teaching providedCurrent Pain Level 0 = NoneAcceptable Pain Level 4 = ModerateChronic Pain noInformation Review:? Allergies, Home Meds and Significant Events have been Reviewed and Verifiedwith Patient/Family yesAllergy, Intolerance, Adverse Event: Allergies:? No Known Allergies: ActiveElectronic Signatures:Veronica Spencer (RN) (Signed 07-Aug-2017 12:08) Authored: Profile, Additional InformationLast Updated: 07-Aug-2017 12:08 by Veronica Spencer (RN)References:1. Data Referenced From Patient Profile - Preop v2 06/15/2017 06:26 AM Normal [facility] Post Operative Note - ORon 0 08-07-2017 Post Operative Note - OR Post Operative Note:PreOp Diagnosis: Right nasal cavity massPost-Procedure Diagnosis: SameProcedure: 1. Nasal endoscopy with biopsySurgeon: Juan PabloResident/Fellow/Oth er Assistant General Manager: MitchellAnesthesia: GeneralEstimated Blood Loss (mL): 5Specimen: yesComplications: NoneFindings: right posterior nasal mass biopsiedPatient Returned To/Condition: pacu / stableAdditional Details: No permanent packing placement.Signature/Cosignat ure/Attestation:Attending Attestation I was present for the entire procedureElectronic Signatures:Hay Medrano (Resident)) (Signed 07-Aug-2017 13:45) Authored: Post Operative Note, Signature/Cosignature/Attest ationEduardo Almeida) (Signed 07-Aug-2017 14:38) Authored: Post Operative Note, Signature/Cosignature/Attest ation Co-Signer: Post Operative Note, Signature/Cosignature/Attest ationLast Updated: 07-Aug-2017 14:38 by Eduardo Almeida) Normal [facility] Preop Checkliston 08-07-2017 Preop Checklist Preop Checklist:Preo p Checklist:? Arrival Date 07-Aug-2017? Arrival Time 11:56? Procedure Type Endo sinus surgery? NPO Status 06-Aug-2017 19:30? ID Band On yes? Allergy Band no known allergies? Consent Signed yes? H&P Complete yes? Anesthesia Assessment Completed yes? EKG Performed see results tab? Chest X-Ray Performed see results tab? Chlorhexadine Bath Given not applicable? Soap and water bath with hair shampoo the night before surgery yes? SCD's Applied sent to OR? STEFANI Hose Applied not ordered? Dentures not applicable? Prosthetics not applicable? Hearing Aids not applicable? Valuables Secured sent with family cousin Oswald west glasses? Glasses / Contacts not applicable? Bowel Prep noCardiovascular Assessment:? Apical regular? Radial Pulses palpable? Pedal Pulses palpable? Extremities warm, well perfusedRespiratory Assessment:? Respirations unlabored regular? Air Exchange equal, good? Breath Sounds clearNeurological Assessment:? Level of Consciousness alert, oriented? Mobility moves all extremities? Able to Express Self yes? Age Appropriate yes? Emotional Status anxiousPreop Education:? Surgical Site Infection Prevention yes? Pain Scales and Management yesLanguage / Communication:? Language / Communication EnglishElectronic Signatures:Veronica Spencer (RN) (Signed 07-Aug-2017 12:10) Authored: Preop ChecklistLast Updated: 07-Aug-2017 12:10 by Veronica Spencer (RN) Normal [facility] Surgical Pathology Depar tmenton 08-07-2017 [facility] Surgical Pathology Department Name SHADE TEIXEIRA Pathologist: LIAM HAQ JR, MD, PhD.Date of Procedure: 08/07/2017Date Received: 08/07/2017Date Reported 08/11/2017Submitting Physician: EDUARDO ALMEIDA MDLocation: TMOR Other External # FINAL DIAGNOSISA AND B: RIGHT NASAL CAVITY MASS, BIOPSY: -- MESENCHYMAL NEOPLASM CONSISTENT WITH SINONASAL GLOMANGIOPERICYTOMA, (SEENOTE)NOTE: No high grade histologic features (such as high mitotic rate or necrosis)is seen. There is no evidence of lymphoma.DIESEL ENGINE FITTER: Dr. Bello WasmanMORPHOLOGY: The specimens are composed of fragments of nasal mucosa with anunderlying submucosa containing sheets of mostly spindled shaped cells in apatternless (vaguely fascicular in some areas, storiform in others)configuration. The cells are medium sized with moderately abundant cytoplasm,indistinct cell boundaries, ovoid nuclei, stippled chromatin with occasionalchromocenters or small nucleoli. There are numerous thin walled vessels withperitheliomatous hyalinization. Mitotic figures or necrosis are not seen.IMMUNOHISTOCHEMISTRY:Im munohistochemical stains performed on block B1 demonstrate the followingresults: S100: Negative SOX10: Negative HMB-45: Negative Melan A: Negative Beta-Catenin: Diffuse and strong nuclear positivity SMA: Positive in a significant subset of the cells Ki67: Proliferation index less than 5% CD34: Appears positive in a subset of the cellsFLOW CYTOMETRY: Performed and showed a predominance of CD45 negative or nonviable events. See separate report for details.The gross and/or microscopic findings were reviewed in conjunction withpathology resident, Jesse Henderson M.D. Electronically Signed Out By LIAM HAQ JR, MD, PhD./Whitney the signature on this report, the individual or group listed as making theFinal Interpretation/Diagnosis certifies that they have reviewed this case. Clinical History:Nasal massSpecimens Submitted As:A: RIGHT NASAL CAVITY MASS B: RIGHT NASAL CAVITY MASS Gross Description:A. Received fresh, labeled with the patient's name and hospital number amultiple fragments of mejia-pink soft tissue aggregating to 1.0 x 0.3 x 0.2 cm.Half of the specimen is submitted for flow cytometry. The other half issubmitted for permanents in one cassette.NUBB. Received in formalin, labeled with the patient's name and hospital numberand A are multiple fragments of unoriented white mejia tissue aggregating to1.3 x 1.0 x 0.3 cm. The specimen is submitted entirely in one cassette.MXBmxb/08/08/2017 The assays/tests were performed with appropriate positive and negative controlswhich stained appropriately. Normal [facility] Comment on above: Performed By: #### C OAGS ####[facility] [place] [address] CBCon 07-31-2017 Erythrocyte distribution width Auto Ratio (RBC) 17.0 % High 11.5 - 14.5 [facility] Comment on above: Performed By: #### C BC ####[facility] [place] [address] Hematocrit Auto Volume Fraction (Bld) 44.4 % Normal 41.0 - 52.0 [facility] Comment on above: Performed By: #### C BC ####[facility] [place] [address] Hemoglobin mass conc (Bld) 13.1 g/dL Low 13.5 - 17.5 [facility] Comment on above: Performed By: #### C BC ####[facility] [place] [address] MCHC Auto mass conc (RBC) 29.5 g/dL Low 32.0 - 36.0 [facility] Comment on above: Performed By: #### C BC ####[facility] [place] [address] MCV Auto Entitic volume (RBC) 81 fL Normal 80 - 100 [facility] Comment on above: Performed By: #### C BC ####[facility] [place] [address] Nucleated RBC/100 WBC Ratio (Bld) 0.0 /100 WBC Normal 0.0-0.0 [facility] Comment on above: Performed By: #### C BC ####[facility] [place] [address] Platelets Auto #/vol (Bld) 344 10*3/uL Normal 150 - 450 [facility] Comment on above: Performed By: #### C BC ####[facility] [place] [address] RBC Auto #/vol (Bld) 5.51 x10E12/L Normal 4.50 - 5.90 [facility] Comment on above: Performed By: #### C BC ####[facility] [place] [address] WBC Auto #/vol (Bld) 9.8 10*3/uL Normal 4.4 - 11.3 [facility] Comment on above: Performed By: #### C BC ####[facility] [place] [address] COAGULATION SCREENon 018 aPTT Coag time (Bld) 24 s Low 25 - 36 [facility] Comment on above: Result Comment: THE APTT IS NO LONGER USED FOR MONITORING UNFRACTIONATED HEPARIN THERAPY. FOR MONITORING HEPARIN THERAPY, USE THE HEPARIN ASSAY. Performed By: #### C BC ####[facility] [place] [address] INR Coag RelTime (PPP) 1.1 {INR} Normal 0.9 - 1.1 [facility] Comment on above: Performed By: #### C BC ####[facility] [place] [address] Prothrombin time (PT) Coag time (PPP) 12.0 s Normal 9.8 - 12.7 [facility] Comment on above: Performed By: #### C BC ####[facility] [place] [address] COMPREHENSIVE PANELon 2017 Albumin mass conc 4.3 g/dL Normal 3.4 - 5.0 [facility] Comment on above: Performed By: #### C BC ####[facility] [place] [address] ALP enzyme act/vol 54 U/L Normal 33 - 136 [facility] Comment on above: Performed By: #### C BC ####[facility] [place] [address] ALT enzyme act/vol 48 U/L Normal 10 - 52 [facility] Comment on above: Result Comment: Shawna ents treated with Sulfasalazine may generate falsely decreased results for ALT. Performed By: #### C BC ####[facility] [place] [address] Anion gap 3 molar conc 15 mmol/L Normal 10 - 20 [facility] Comment on above: Performed By: #### C BC ####[facility] [place] [address] AST enzyme act/vol 29 U/L Normal 9 - 39 [facility] Comment on above: Performed By: #### C BC ####[facility] [place] [address] Bilirubin mass conc 0.3 mg/dL Normal 0.0 - 1.2 [facility] Comment on above: Performed By: #### C BC ####[facility] [place] [address] Calcium mass conc 10.8 mg/dL High 8.6 - 10.6 [facility] Comment on above: Performed By: #### C BC ####[facility] [place] [address] Chloride molar conc 96 mmol/L Low 98 - 107 [facility] Comment on above: Performed By: #### C BC ####[facility] [place] [address] Creatinine mass conc 0.86 mg/dL Normal 0.50 - 1.30 [facility] Comment on above: Performed By: #### C BC ####[facility] [place] [address] GFR- AM. >60 Normal >60 [facility] Comment on above: Result Comment: CALC ULATIONS OF ESTIMATED GFR ARE PERFORMED USING THE MDRD STUDY EQUATION FOR THE IDMS-TRACEABLE CREATININE METHODS. CLIN CHEM 2007;53:766-72 Performed By: #### C BC ####[facility] [place] [address] GFR-NON AM. >60 Normal >60 [facility] Comment on above: Performed By: #### C BC ####[facility] [place] [address] Glucose mass conc 135 mg/dL High 74 - 99 [facility] Comment on above: Performed By: #### C BC ####[facility] [place] [address] HCO3 molar conc (Bld) 31 mmol/L Normal 21 - 32 [facility] Comment on above: Performed By: #### C BC ####[facility] [place] [address] Potassium molar conc 3.7 mmol/L Normal 3.5 - 5.3 [facility] Comment on above: Performed By: #### C BC ####[facility] [place] [address] Protein mass conc 6.8 g/dL Normal 6.4 - 8.2 [facility] Comment on above: Performed By: #### C BC ####[facility] [place] [address] Sodium molar conc 138 mmol/L Normal 136 - 145 [facility] Comment on above: Performed By: #### C BC ####[facility] [place] [address] Urea nitrogen mass conc 25 mg/dL High 6 - 23 [facility] Comment on above: Performed By: #### C BC ####[facility] [place] [address] TYPE + SCREENon 07-31-2017 ABO TYPE A Normal [facility] Comment on above: Performed By: #### C BC ####[facility] [place] [address] RH TYPE Positive Normal [facility] Comment on above: Performed By: #### C BC ####[facility] [place] [address] ANTIBODY SCREEN Negative Normal [facility] Comment on above: Performed By: #### C BC ####[facility] [place] [address] GLUCOSE-POCTon 06-15-2017 Glucose mass conc 217 mg/dL High 74 - 99 [facility] Comment on above: Performed By: #### G KARYN ####[facility] [place] [address] History and Physical - Surgi laverne Update < 30 dayson 06-15-2017 History and Physical - Surgical Update < 30 days History & Physical Reviewed:I have reviewed the History and Physical dated: [id number] and Physical reviewed and relevant findings noted. Patient examined toreview pertinent physical findings.: Significant findings noted belowFindings: Patient was recently hospitalized with CHF exacerbation requiring IVLasix for diuresis. Patient reportedly was cancelled last month but did notrestart his Plavix nor ASA. Patient only took ASA yesterday. Patient has astent from roughly one year ago.Home Medications Reviewed: changes noted as aboveAllergies Reviewed: no changes notedThis patient has been seen and discussed with the attending physicianresponsible for performing the procedure: yesSignatures/Attestation/Ce rtification:Attending Attestation I saw and evaluated the patient. I personally obtainedthe hernandez and critical portions of the history and physical exam or wasphysically present for hernandez and critical portions performed by theresident/fellow. I reviewed the resident/fellow?s documentation and discussedthe patient with the resident/fellow. I agree with the resident/fellow?smedical decision making as documented in the resident?s note.I personally evaluated the patient (as noted in the above attestation) [id number] Provider ? Inpatient Certification Statement N/A - observationpatient/other outpatient visitsElectronic Signatures:Fernando Garcia (Resident)) (Signed 15-Jun-2017 07:25) Authored: History & Physical Reviewed, Signatures/Attestation/Certi kyleationEduardo Almeida) (Signed 16-Jun-2017 09:05) Authored: Signatures/Attestation/Certi fication Co-Signer: History & Physical Reviewed, Signatures/Attestation/Certi ficationLast Updated: 16-Jun-2017 09:05 by Eduardo Almeida) Normal [facility] PATH REVIEW-IMMUNOHEMATOLOGY on 06-15-2017 PATH REV-IMMUNOHEMOTOL RENATE Normal [facility] Comment on above: Result Comment: By h er/his signature above, the Pathologist listed as making the final interpretation certifies that she/he has personally reviewed this case. ANTIBODY DETECTION SCREEN IS POSITIVE.ANTIBODY IDENTIFICATION PANEL WAS PERFORMED.THE AUTOCONTROL IS NEGATIVE.ALL COMMON CLINICALLY SIGNIFICANTALLOANTIBODIES HAVE BEEN RULED OUT.FULL CROSSMATCHED DONOR RBC UNITS SHOULD BESELECTED FOR TRANSFUSION FOR THIS PATIENT. Performed By: #### P R30 ####[facility] [place] [address] Preop Checkliston 06-15-2017 Preop Checklist Preop Checklist:Preo p Checklist:? Arrival Date 15-Jun-2017? NPO Status 15-Jun-2017 00:00? ID Band On yes? Allergy Band no known allergies? Consent Signed pending? H&P Complete pending? Anesthesia Assessment Completed pending? EKG Performed see results tab? Chest X-Ray Performed see results tab? Chlorhexadine Bath Given not applicable? Soap and water bath with hair shampoo the night before surgery notapplicable? SCD's Applied yes? STEFANI Hose Applied yes? Dentures not applicable? Prosthetics not applicable? Hearing Aids not applicable? Valuables Secured sent with family wallet given to friend maeve? Glasses / Contacts not applicable? Bowel Prep noCardiovascular Assessment:? Apical regular? Radial Pulses palpable? Pedal Pulses palpable? Extremities warmRespiratory Assessment:? Respirations regular? Air Exchange equal? Breath Sounds clearNeurological Assessment:? Level of Consciousness alert? Mobility moves all extremities? Able to Express Self yes? Age Appropriate yes? Emotional Status calmPreop Education:? Surgical Site Infection Prevention yes? Pain Scales and Management yesLanguage / Communication:? Language / Communication EnglishElectronic Signatures:Erma Mendez (CLARITA) (Signed 15-Jun-2017 06:58) Authored: Preop ChecklistLast Updated: 15-Jun-2017 06:58 by Erma Mendez (CLARITA) Normal [facility] Provider Note - EDon 018 Protein mass conc Time Seen:? Time See n 15-Jun-2017 08:19Triage Vital Signs:? Triage Information Most recent Vital Sign Value Date Heart Rate (beats/min): 77 06-15-2017 08:31 Respirations (breaths/min): 17 06-15-2017 08:31 BP Systolic (mm Hg): 109 06-15-2017 08:31 BP Diastolic (mm Hg): 66 06-15-2017 08:31History of Present Illness:This 61 year old Male presents with complaint(s) of other and increased oxygenrequirement(1)Sent from pre-op area for increased oxygen requirement(1)? Historian patientHistory of Presenting Illness - Additional:? Complaint This is a 61-year-old male with a history of CHF, CAD,hypertension, diabetes, hyperlipidemia, and cardiac stent ?2. Patient was inpreop to have a paranasal sinus mass removed but due to patient being off ofhis Plavix and aspirin for a month and a hospital admission for CHFexacerbation last week anesthesiology was concerned about patient's cardiachealth and is requiring further cardiac risk stratification. Upon assessmentof patient patient has no complaints. Patient is denying any chest pain orshortness of breath. Patient states that he is at his baseline and that hefeels fine. Patient states that he wears supplemental oxygen as needed at homeand that that has been improving since eating treated for a CHF exacerbation.Patient is denying any recent weight gain or edema.PMH: Hypertension, diabetes, CHF, FAVIAN, depression, anxiety, hyperlipidemiaPSH: Bilateral hip replacement, cardiac stent ?2Meds: reviewed with pt and in printed chartSignificant Events:? abdominal surgery: Past Surgical History, Active? fissure repair: Past Surgical History, Active? bilat hip replacements: Past Surgical History, Active? Pe.>10 yrs ago: Past Medical History, Active? previous smoker: Past Medical History, Active? hx etoh: Past Medical History, Active? anxiety: Past Medical History, Active? chf: Past Medical History, Active? copd: Past Medical History, Active? mi with stent: Past Medical History, Active? anemia: Past Medical History, Active? gerd: Past Medical History, Active? favian wears cpap at home: Past Medical History, Active? afib: Past Medical History, Active? dm: Past Medical History, ActiveAllergy, Intolerance, Adverse Event: Allergies:? No Known Allergies: ActiveOutpatient Medication, Review/Add Medications:* Patient Currently Takes Medications as of 15-Jun-2017 07:08 documented inStructured Notes? amLODIPine 10 mg oral tablet: Last Modified Date/Time: 15-Jun-2017 07:08? aspirin 81 mg oral tablet: Last Modified Date/Time: 15-Jun-2017 07:08? Lipitor 40 mg oral tablet: Last Modified Date/Time: 15-Jun-2017 07:08? Plavix 75 mg oral tablet: Last Modified Date/Time: 15-Jun-2017 07:08? Lasix 40 mg oral tablet: Last Modified Date/Time: 15-Jun-2017 07:08? glimepiride 4 mg oral tablet: Last Modified Date/Time: 15-Jun-2017 07:08? hydrALAZINE 25 mg oral tablet: Last Modified Date/Time: 15-Jun-2017 07:08? metFORMIN 1000 mg oral tablet: Last Modified Date/Time: 15-Jun-2017 07:08? Metoprolol Succinate ER 100 mg oral tablet, extended release: LastModifiedDate/Time: 15-Jun-2017 07:08? potassium chloride: Last Modified Date/Time: 15-Jun-2017 07:08? metOLazone 2.5 mg oral tablet: Last Modified Date/Time: 15-Jun-2017 07:08? multivitamin: Last Modified Date/Time: 15-Jun-2017 07:08? naproxen sodium 220 mg oral capsule: Last Modified Date/Time: [id number]-Mde-[id number]:08? diphenhydrAMINE 25 mg oral capsule: Last Modified Date/Time: [id number]-Eub-[id number]:08? albuterol: Last Modified Date/Time: 15-Jun-2017 07:08? Flonase: Last Modified Date/Time: 15-Jun-2017 07:08? gemfibrozil 600 mg oral tablet: Last Modified Date/Time: 15-Jun-2017 07:08? HumuLIN R: Last Modified Date/Time: 15-Jun-2017 07:08? LORazepam 0.5 mg oral tablet: Last Modified Date/Time: 15-Jun-2017 07:08? ranolazine 500 mg oral tablet, extended release: Last Modified Date/Time:15-Jun-2017 07:08? nitroglycerin 0.4 mg sublingual tablet: Last Modified Date/Time:[id number]-[id number]:08? PARoxetine 40 mg oral tablet: Last Modified Date/Time: 13-Jun-2017 13:18Social History: denies smoking, alcohol and drug useHISTORY ATTESTATION:? Attestation I have reviewed and confirmed nurse's/medic's notes forpatient'smedications, allergies, medical history, and surgical historyReview of Systems:? All Other Systems all other systems reviewed and are negative? Constitutional negative: chills, fever, malaise/fatigue? Cardiovascular negative: chest pain, diaphoresis, edema, palpitation,tachycardia? Respiratory negative: cough, dyspnea, wheezing? Gastrointestinal negative: abdominal pain, constipation, diarrhea, nausea,vomiting? Neurological negative: dizziness, headache, loss of functionVital Signs:? Objective Information T P R BP SpO2 O2(LPM) %FiO2 08:31:00- 77 17 109/66supplemental [id number] EXAM:? Physical Examination:Physical Exam:Appearance: Alert, oriented , cooperative, in no acute distress. Wellnourished & well hydrated.Skin: Intact, dry skin, no lesions, rash, petechiae or purpura.Eyes: PERRLA, Conjunctiva pink with no redness or exudates. Eyelids withoutlesions. No scleral icterus.ENT: Hearing grossly intact. Nares patent, mucus membranes moist. Dentitionwithout lesions. Pharynx clear, uvula midline.Neck: Supple, without meningismus. Thyroid not palpable. Trachea at midline. Nolymphadenopathy.Pulmonary: Clear bilaterally with good chest wall excursion. No rales, rhonchior wheezing. No accessory muscle use or stridor.Cardiac: Normal S1, S2 without murmur, rub, gallop or extrasystole. No JVD,Carotids without bruits.Abdomen: Soft, nontender, active bowel sounds. No palpable organomegaly. Norebound or guarding. No CVA tenderness.Genitourinary: Exam deferred.Musculoskeletal: Extremities warm and well perfused, pulses full and equalbilaterally, sensation intact no edema or deformity noted.Neurological: normal sensation, no weakness, no focal findings identified.Psychiatric: Appropriate mood and affect.Medical Decision Making:? Discussed Clinical and Radiological Findings With patient? Data Reviewed old records, vital signs, nurses notes? Diagnosis Counseling I had a detailed discussion with the patient and/orguardian regarding the historical points, exam findings, and any diagnosticresults supporting the discharge/admit diagnosis.? Conducted a Detailed Discussion with Patient and/or Guardian Regarding needfor outpatient follow-up, return to ED if symptoms worsen, persist or questionsarise? ED Course/Treatment PlanPatient has remained clinically stable in the emergency department. Patientwas evaluated after being sent from preop for cardiac risk stratification.Preop concern due to the fact that patient has been off of his Plavix andaspirin for the past month with a stent placement approximately one year agoany recent hospital admission for CHF exacerbation. The patient presentationand plan of care was discussed with Dr. Almeida who was supposed to performthe ENT surgery. Dr. Almeida was concerned that the patient could have apossible cardiac event and therefore anesthesia was not comfortable performingsurgery today. Dr. Almeida states he tried to admit the patient directly butwas unable to and was therefore sent to the emergency room for furtherevaluation. At the current time patient has no chest pain, shortness ofbreath, recent weight gain or edema. Patient has no complaints and states thathe is at his baseline and feels [facility] Patient's physical exam with clear lung sounds and regular heartrate and rhythm. Based on patient's symptoms and physical exam there is nofurther testing that needs to be done at this time. Patient was educated torestart taking his aspirin and his Plavix as prescribed and to follow-up withhis it telecom technician as soon as possible and to call today for further cardiac riskstratification prior to having surgery. Patient verbalized understanding andis agreeable to plan of care. Patient advised to return to emergency room ifhe does develop any chest pain or shortness of breath or any new symptoms.Diagnoses/Visit Problems:? Cardiac risk counseling:DISCHARGE DISPOSITION:? Disposition: discharged? Discharge Type: homeCONDITION ON DISPO:? Condition on Disposition stableMEDICATION RECONCILIATION/DISCHARGE MEDS:* Outpatient Medication Status not yet specifiedAttestation:BAO [place] CARE:? Is This a Critically Ill Patient noCo-Sign/Attestation:Attest ation: This is a shared visit. I have reviewed the LIP?s encounter note,approve the LIP?s documentation and provide the following additionalinformation from my personal encounter.Shared Visit Documentation: See comments/additional findings belowComments/ Additional Findings:Patient says he is in his usual state of health. He has had no chest pain orshortness of breath since his recent hospitalization and says he has actuallybeen using his supplemental oxygen left at home then usually would. Idiscussed the patient's presentation with Dr. Almeida. He says he wasconcerned the patient has had another cardiac event and that anesthesia was notcomfortable performing anesthesia for his surgical case today. He had tried toadmit the patient to the hospital directly but was unsuccessful in doing so.As the patient has no symptoms of chest pain or shortness of breath at thistime and feels quite well I do not think he would benefit from hospitalizationadmission and would actually be exposed to undo risk. We will encourage him torestart his cardiac medications and follow-up with his it telecom technician for furtheroperative planning and cardiac risk medication.Electronic Signatures:Jaret Mcdonough () (Signed 15-Jun-2017 15:53) Authored: Attestation Co-Signer: Time Seen / ED Notes, Triage Vital Signs, History of PresentIllness, Patient History, History Attestation, ROS, Vital Signs, Physical Exam,Medical Decision Making, ED Disposition (REQUIRED), AttestationPriya Velazco (ELECTRIC METER TESTER-PLATFORM MILL SUPERVISOR) (Signed 15-Jun-2017 09:50) Authored: Time Seen / ED Notes, Triage Vital Signs, History of PresentIllness, Patient History, History Attestation, ROS, Vital Signs, Physical Exam,Medical Decision Making, ED Disposition (REQUIRED), AttestationLast Updated: 15-Jun-2017 15:53 by Jaret Mcdonough ()References:1. Data Referenced From Triage - ED 06/15/2017 8:31 AM Normal [facility] Triage - EDon 06-15-2017 Triage - ED Quick Triage:The pat ient and/or guardian verbally acknowledges placement for services intothe following (when Urgent Care Service hours are operating): emergencydepartmentChart Review: CHIEF COMPLAINTSHADE TEIXEIRA is a Male patient with a chief complaint of other (increasedoxygen requirement).Other Complaints: Sent from pre-op area for increased oxygen requirementTriage Date/Time: 15-Jun-2017 08:31Vital Signs:Temperature: F ( C) taken temporalBlood Pressure: 109/66 Mean:Heart Rate: 77Respiratory Rate: 17on supplemental O2. Height: 5 feet 10.00 inches. 177.8 CMWeight: 289.0 pounds. Calculated 131.0 kg. (stated)Calculated BMI (kg/m2): 41.438 Calculated BSA (m2) 2.54Cough lasting greater than 3 weeks: noTravel outside of [place]: Chiomaergies: noMask applied: noPatient has suicidal thoughts: noPatient has homicidal thoughts: noESI: 3Symptoms Are Negative For:anxiety, chills, diaphoresis, dyspnea, headache, loss of consciousness, nausea,numbness, tingling and weaknessPAINPain Scale Used: CATHERINE ARRIVAL INFORMATIONMeans of Arrival: stretcher Mode of Arrival: transportation service (Pre-opstaff) Arrival From: home Accompanied By: selfLanguage:Spoken Language Preferred: Latvian Reading Language Preferred: EnglishInterpreter Requested: no operation shift supervisor was requested PRIMARY ASSESSMENTSHADE TEIXEIRA'elian primary assessment is Within Normal Limits. The airway isopen and patent. Breathing spontaneous and unlabored with clear breath soundsbilaterally. Circulation is normal with good peripheral pulses. Skin is warmand dry and color is normal for race. TRAVEL HISTORYTravel Exposure History: NO travel to International locations in the past 30daysPast Medical History:? Past Medical History Reviewed yesElectronic Signatures:Velma Patel) (Signed 15-Jun-2017 08:39) Authored: Triage, Past Medical HistoryLast Updated: 15-Jun-2017 08:39 by Velma Patel (CLARITA) Normal [facility] ANTIBODY IDENT.on 06-13-2017 ANTIBODY IDENT. Inconclusive Normal [facility] Comment on above: Performed By: #### A BID ####[facility] [place] [address] BASIC METABOLIC PANELon 03-0 Anion gap 3 molar conc 16 mmol/L Normal 10 - 20 [facility] Comment on above: Performed By: #### B MP ####[facility] [place] [address] Calcium mass conc 10.6 mg/dL Normal 8.6 - 10.6 [facility] Comment on above: Performed By: #### B MP ####[facility] [place] [address] Chloride molar conc 102 mmol/L Normal 98 - 107 [facility] Comment on above: Performed By: #### B MP ####[facility] [place] [address] Creatinine mass conc 0.89 mg/dL Normal 0.50 - 1.30 [facility] Comment on above: Performed By: #### B MP ####[facility] [place] [address] GFR- AM. >60 Normal >60 [facility] Comment on above: Result Comment: CALC ULATIONS OF ESTIMATED GFR ARE PERFORMED USING THE MDRD STUDY EQUATION FOR THE IDMS-TRACEABLE CREATININE METHODS. CLIN CHEM 2007;53:766-72 Performed By: #### B MP ####[facility] [place] [address] GFR-NON AM. >60 Normal >60 [facility] Comment on above: Performed By: #### B MP ####[facility] [place] [address] Glucose mass conc 113 mg/dL High 74 - 99 [facility] Comment on above: Performed By: #### B MP ####[facility] [place] [address] HCO3 molar conc (Bld) 27 mmol/L Normal 21 - 32 [facility] Comment on above: Performed By: #### B MP ####[facility] [place] [address] Potassium molar conc 4.2 mmol/L Normal 3.5 - 5.3 [facility] Comment on above: Performed By: #### B MP ####[facility] [place] [address] Sodium molar conc 141 mmol/L Normal 136 - 145 [facility] Comment on above: Performed By: #### B MP ####[facility] [place] [address] Urea nitrogen mass conc 26 mg/dL High 6 - 23 [facility] Comment on above: Performed By: #### B MP ####[facility] [place] [address] CBCon 06-12-2017 Erythrocyte distribution width Auto Ratio (RBC) 20.3 % High 11.5 - 14.5 [facility] Comment on above: Performed By: #### C BC ####[facility] [place] [address] Hematocrit Auto Volume Fraction (Bld) 44.3 % Normal 41.0 - 52.0 [facility] Comment on above: Performed By: #### C BC ####[facility] [place] [address] Hemoglobin mass conc (Bld) 12.6 g/dL Low 13.5 - 17.5 [facility] Comment on above: Performed By: #### C BC ####[facility] [place] [address] MCHC Auto mass conc (RBC) 28.4 g/dL Low 32.0 - 36.0 [facility] Comment on above: Performed By: #### C BC ####[facility] [place] [address] MCV Auto Entitic volume (RBC) 85 fL Normal 80 - 100 [facility] Comment on above: Performed By: #### C BC ####[facility] [place] [address] Nucleated RBC/100 WBC Ratio (Bld) 0.0 /100 WBC Normal 0.0-0.0 [facility] Comment on above: Performed By: #### C BC ####[facility] [place] [address] Platelets Auto #/vol (Bld) 367 10*3/uL Normal 150 - 450 [facility] Comment on above: Performed By: #### C BC ####[facility] [place] [address] RBC Auto #/vol (Bld) 5.23 x10E12/L Normal 4.50 - 5.90 [facility] Comment on above: Performed By: #### C BC ####[facility] [place] [address] WBC Auto #/vol (Bld) 10.5 10*3/uL Normal 4.4 - 11.3 [facility] Comment on above: Performed By: #### C BC ####[facility] [place] [address] CHEST; 2 VIEW APon 8 CHEST; 2 VIEW AP Name: SHADE TEIXEIRA STUDY:CHEST; 2 VIEW AP; 06/12/2017 11:02 am INDICATION:Signs/Symptoms: RESP NOS. COMPARISON:None ORDERING CLINICIAN:EDUARDO ALMEIDA FINDINGS:Patient is slightly rotated towards right. The cardiomediastinal silhouette size is within normal limits. There is no focal consolidation, edema or pneumothorax. No sizeablepleural effusion. No acute osseous abnormality. IMPRESSION:1. No radiographic evidence of acute cardiopulmonary process. Electronically signed by: PAULA ALEXANDER MD Normal [facility] COAGULATION SCREENon 018 aPTT Coag time (Bld) Canceled Normal [facility] Comment on above: Order Comment: TEST COAGULATION SCREEN WAS CANCELLED, 06/12/2017 14:02 QNS. Result Comment: THE APTT IS NO LONGER USED FOR MONITORING UNFRACTIONATED HEPARIN THERAPY. FOR MONITORING HEPARIN THERAPY, USE THE HEPARIN ASSAY. Performed By: #### C OAGS ####[facility] [place] [address] INR Coag RelTime (PPP) Canceled Normal [facility] Comment on above: Order Comment: TEST COAGULATION SCREEN WAS CANCELLED, 06/12/2017 14:02 QNS. Performed By: #### C OAGS ####[facility] [place] [address] Prothrombin time (PT) Coag time (PPP) Canceled Normal [facility] Comment on above: Order Comment: TEST COAGULATION SCREEN WAS CANCELLED, 06/12/2017 14:02 QNS. Performed By: #### C OAGS ####[facility] [place] [address] TYPE + SCREENon 06-12-2017 ABO TYPE A Normal [facility] Comment on above: Performed By: #### T +S ####[facility] [place] [address] ANTIBODY SCREEN Positive Normal [facility] Comment on above: Performed By: #### T +S ####[facility] [place] [address] RH TYPE Positive Normal [facility] Comment on above: Performed By: #### T +S ####[facility] [place] [address] No Panel Information SARS-CoV-2 & FLU Antigen (Rapid) [facility] Work Phone: Vital Signs Date Time Vital Sign Value Performing Clinician Facility 09-04-2024 12:37-0400 Body temperature 97.9 [degF] Dr. Hank Negrete MD Work Phone: [facility] 09-04-2024 12:37-0400 Diastolic blood pressure 81 mm[Hg] Dr. Hank Negrete MD Work Phone: 3(033)019-001353 [place] [address] 09-04-2024 12:37-0400 Heart rate 70 /min Dr. Hank Negrete MD Work Phone: [facility] 09-04-2024 12:37-0400 Inhaled oxygen flow rate 3 L/min Dr. Hank Negrete MD Work Phone: [facility] 09-04-2024 12:37-0400 Respiratory rate 22 /min Dr. Hank Negrete MD Work Phone: [facility] 09-04-2024 12:37-0400 SaO2% (BldA) [Mass fraction] 100 % Dr. Hank Negrete MD Work Phone: [facility] 09-04-2024 12:37-0400 Systolic blood pressure 146 mm[Hg] Dr. Hank Negrete MD Work Phone: [facility] 09-04-2024 11:08-0400 Body height 177.[address] Hank Negrete MD Work Phone: [facility] 09-04-2024 11:08-0400 Body mass index (BMI) [Ratio] 38.7 kg/m2 Dr. Hank Negrete MD Work Phone: [facility] 09-04-2024 11:08-0400 Body weight 122.[address] Hank Negrete MD Work Phone: 9(513)290-784995 [place] [address] 08-15-2024 08:16-0400 Body mass index (BMI) [Ratio] 38.4 kg/m2 Dr. Hank Negrete MD Work Phone: 0(992)658-232895 [place] [address] 08-15-2024 08:16-0400 Body weight 121.[address] Hank Negrete MD Work Phone: 1(799)817-792653 [place] [address] 08-15-2024 08:16-0400 Diastolic blood pressure 95 mm[Hg] Dr. Hank Negrete MD Work Phone: 3(328)912-910295 [place] [address] 08-15-2024 08:16-0400 Heart rate 82 /min Dr. Hank Negrete MD Work Phone: 9(428)963-733295 [place] [address] 08-15-2024 08:16-0400 Respiratory rate 22 /min Dr. Hank Negrete MD Work Phone: 3(162)762-557395 [place] [address] 08-15-2024 08:16-0400 Systolic blood pressure 163 mm[Hg] Dr. Hank Negrete MD Work Phone: 6(736)465-167095 [place] [address] 08-12-2024 13:37-0400 Body temperature 98 [degF] Dr. Hank Negrete MD Work Phone: 8(700)832-382895 [place] [address] 08-12-2024 13:37-0400 Diastolic blood pressure 71 mm[Hg] Dr. Hank Negrete MD Work Phone: 5(590)239-367195 [place] [address] 08-12-2024 13:37-0400 Heart rate 71 /min Dr. Hank Negrete MD Work Phone: 3(942)038-387895 [place] [address] 08-12-2024 13:37-0400 Inhaled oxygen flow rate 2 L/min Dr. Hank Negrete MD Work Phone: 0(167)087-307953 [place] [address] 08-12-2024 13:37-0400 Respiratory rate 18 /min Dr. Hank Negrete MD Work Phone: 9(184)413-522595 [place] [address] 08-12-2024 13:37-0400 SaO2% (BldA) [Mass fraction] 98 % Dr. Hank Negrete MD Work Phone: 4(873)301-730053 [place] [address] 08-12-2024 13:37-0400 Systolic blood pressure 133 mm[Hg] Dr. Hank Negrete MD Work Phone: 2(740)040-289253 [place] [address] 08-11-2024 10:04-0400 Body weight 124.[address] Hank Negrete MD Work Phone: 8(652)841-250708 [address] 08-09-2024 16:51-0400 Body mass index (BMI) [Ratio] 39.2 kg/m2 Dr. Hank Negrete MD Work Phone: 1(575)319-427495 [place] [address] 08-01-2024 08:53-0400 Body mass index (BMI) [Ratio] 38.7 kg/m2 Dr. Hank Negrete MD Work Phone: 9(815)930-386095 [place] [address] 08-01-2024 08:53-0400 Body temperature 97.5 [degF] Dr. Hank Negrete MD Work Phone: 6(980)595-698153 [place] [address] 08-01-2024 08:53-0400 Body weight 122.[address] Hank Negrete MD Work Phone: 2(389)688-981895 [place] [address] 08-01-2024 08:53-0400 Diastolic blood pressure 81 mm[Hg] Dr. Hank Negrete MD Work Phone: 7(082)090-820895 [place] [address] 08-01-2024 08:53-0400 Heart rate 75 /min Dr. Hank Negrete MD Work Phone: 6(141)543-720953 [place] [address] 08-01-2024 08:53-0400 Inhaled oxygen flow rate 2 L/min Dr. Hank Negrete MD Work Phone: 7(999)854-190753 [place] [address] 08-01-2024 08:53-0400 Respiratory rate 18 /min Dr. Hank Negrete MD Work Phone: 3(960)800-130453 [place] [address] 08-01-2024 08:53-0400 SaO2% (BldA) [Mass fraction] 97 % Dr. Hank Negrete MD Work Phone: 2(774)421-032853 [place] [address] 08-01-2024 08:53-0400 Systolic blood pressure 152 mm[Hg] Dr. Hank Negrete MD Work Phone: 5(251)411-203953 [place] [address] 07-22-2024 10:06-0400 Body mass index (BMI) [Ratio] 39.3 kg/m2 Dr. Hank Negrete MD Work Phone: 7(151)020-774795 [place] [address] 07-22-2024 10:06-0400 Body weight 124.[address] Hank Negrete MD Work Phone: 4(838)571-127195 [place] [address] 07-22-2024 10:06-0400 Diastolic blood pressure 84 mm[Hg] Dr. Hank Negrete MD Work Phone: 6(675)539-726195 [place] [address] 07-22-2024 10:06-0400 Heart rate 73 /min Dr. Hank Negrete MD Work Phone: 3(248)845-676995 [place] [address] 07-22-2024 10:06-0400 Respiratory rate 18 /min Dr. Hank Negrete MD Work Phone: 2(209)739-736395 [place] [address] 07-22-2024 10:06-0400 SaO2% (BldA) [Mass fraction] 95 % Dr. Hank Negrete MD Work Phone: 2(627)289-775795 [place] [address] 07-22-2024 10:06-0400 Systolic blood pressure 151 mm[Hg] Dr. Hank Negrete MD Work Phone: 9(913)539-366195 [place] [address] 05-03-2024 13:44-0500 Body height 177.[address] Hank Negrete MD Work Phone: 7(310)036-596595 [place] [address] 05-03-2024 13:44-0500 Body mass index (BMI) [Ratio] 38.9 kg/m2 Dr. Hank Negrete MD Work Phone: 0(192)137-668808 [address] 05-03-2024 13:44-0500 Body temperature 97.5 [degF] Dr. Hank Negrete MD Work Phone: 2(083)578-846708 [address] 05-03-2024 13:44-0500 Body weight 122.[address] Hank Negrete MD Work Phone: 0(283)521-206753 [place] [address] 05-03-2024 13:44-0500 Diastolic blood pressure 98 mm[Hg] Dr. Hank Negrete MD Work Phone: 2(306)319-819453 [place] [address] 05-03-2024 13:44-0500 Heart rate 75 /min Dr. Hank Negrete MD Work Phone: 7(007)413-048453 [place] [address] 05-03-2024 13:44-0500 Respiratory rate 16 /min Dr. Hank Negrete MD Work Phone: 2(044)924-304508 [address] 05-03-2024 13:44-0500 SaO2% (BldA) [Mass fraction] 95 % Dr. Hank Negrete MD Work Phone: 2(908)477-773195 [place] [address] 05-03-2024 13:44-0500 Systolic blood pressure 149 mm[Hg] Dr. Hank Negrete MD Work Phone: 2(512)089-212495 [place] [address] 04-25-2024 10:52-0500 Body mass index (BMI) [Ratio] 37.3 kg/m2 Dr. Hank Negrete MD Work Phone: 1(649)423-485895 [place] [address] 04-25-2024 10:52-0500 Body weight 117.[address] Hank Negrete MD Work Phone: 1(020)744-057495 [place] [address] 04-25-2024 10:52-0500 Diastolic blood pressure 70 mm[Hg] Dr. Hank Negrete MD Work Phone: 3(663)747-457795 [place] [address] 04-25-2024 10:52-0500 Heart rate 72 /min Dr. Hank Negrete MD Work Phone: 7(910)872-917295 [place] [address] 04-25-2024 10:52-0500 SaO2% (BldA) [Mass fraction] 92 % Dr. Hank Negrete MD Work Phone: 2(461)212-982408 [address] 04-25-2024 10:52-0500 Systolic blood pressure 129 mm[Hg] Dr. Hank Negrete MD Work Phone: 2(512)860-499153 [place] [address] 04-09-2024 13:36-0500 Body weight 117.[address] Hank Negrete MD Work Phone: 2(288)535-855053 [place] [address] 04-09-2024 13:36-0500 Heart rate 84 /min Dr. Hank Negrete MD Work Phone: [facility] 04-09-2024 13:36-0500 Inhaled oxygen flow rate 2 L/min Dr. Hank Negrete MD Work Phone: [facility] 04-09-2024 13:36-0500 SaO2% (BldA) [Mass fraction] 92 % Dr. Hank Negrete MD Work Phone: [facility] 03-15-2024 13:35-0500 Body mass index (BMI) [Ratio] 37.3 kg/m2 Dr. Hank Negrete MD Work Phone: 7(921)498-421453 [place] [address] 03-15-2024 13:35-0500 Body temperature 96.7 [degF] Dr. Hank Negrete MD Work Phone: 7(757)925-933553 [place] [address] 03-15-2024 13:35-0500 Body weight 117.[address] Hank Negrete MD Work Phone: [facility] 03-15-2024 13:35-0500 Diastolic blood pressure 83 mm[Hg] Dr. Hank Negrete MD Work Phone: 3(154)722-247453 [place] [address] 03-15-2024 13:35-0500 Heart rate 94 /min Dr. Hank Negrete MD Work Phone: [facility] 03-15-2024 13:35-0500 Respiratory rate 20 /min Dr. Hank Negrete MD Work Phone: [facility] 03-15-2024 13:35-0500 SaO2% (BldA) [Mass fraction] 96 % Dr. Hank Negrete MD Work Phone: [facility] 03-15-2024 13:35-0500 Systolic blood pressure 141 mm[Hg] Dr. Hank Negrete MD Work Phone: [facility] 08-11-2023 20:37-0400 Body temperature 98 [degF] Dr. Meyr Raymond Work Phone: [facility] 08-11-2023 20:37-0400 Diastolic blood pressure 64 mm[Hg] Dr. Mery Raymond Work Phone: [facility] 08-11-2023 20:37-0400 Heart rate 75 /min Dr. Mery Raymond Work Phone: [facility] 08-11-2023 20:37-0400 Respiratory rate 20 /min Dr. Mery Raymond Work Phone: [facility] 08-11-2023 20:37-0400 SaO2% (BldA) [Mass fraction] 95 % Dr. Mery Raymond Work Phone: [facility] 08-11-2023 20:37-0400 Systolic blood pressure 131 mm[Hg] Dr. Mery Raymond Work Phone: [facility] 08-11-2023 17:24-0400 Body height 177.[address] Mery Raymond Work Phone: [facility] 08-11-2023 17:24-0400 Body mass index (BMI) [Ratio] 36.5 kg/m2 Dr. Mery Raymond Work Phone: [facility] 08-11-2023 17:24-0400 Body weight 115.[address] Mery Raymond Work Phone: [facility] 08-08-2023 12:58-0400 Body mass index (BMI) [Ratio] 34.9 kg/m2 Dr. Mery Raymond Work Phone: [facility] 08-08-2023 12:58-0400 Body temperature 97.3 [degF] Dr. Mery Raymond Work Phone: [facility] 08-08-2023 12:58-0400 Body weight 110.[address] Mery Raymond Work Phone: [facility] 08-08-2023 12:58-0400 Diastolic blood pressure 70 mm[Hg] Dr. Mery Raymond Work Phone: [facility] 08-08-2023 12:58-0400 Heart rate 78 /min Dr. Mery Raymond Work Phone: [facility] 08-08-2023 12:58-0400 SaO2% (BldA) [Mass fraction] 94 % Dr. Mery Raymond Work Phone: [facility] 08-08-2023 12:58-0400 Systolic blood pressure 116 mm[Hg] Dr. Mery Raymond Work Phone: [facility] 07-31-2023 13:05-0400 Body temperature 97.9 [degF] Dr. Mery Raymond Work Phone: [facility] 07-31-2023 13:05-0400 Diastolic blood pressure 66 mm[Hg] Dr. Mery Raymond Work Phone: [facility] 07-31-2023 13:05-0400 Heart rate 71 /min Dr. Mery Raymond Work Phone: [facility] 07-31-2023 13:05-0400 Inhaled oxygen flow rate 2 L/min Dr. Mery Raymond Work Phone: [facility] 07-31-2023 13:05-0400 Respiratory rate 16 /min Dr. Mery Raymond Work Phone: [facility] 07-31-2023 13:05-0400 SaO2% (BldA) [Mass fraction] 95 % Dr. Mery Raymond Work Phone: [facility] 07-31-2023 13:05-0400 Systolic blood pressure 108 mm[Hg] Dr. Mery Raymond Work Phone: [facility] 07-31-2023 12:59-0400 Diastolic blood pressure 66 mm[Hg] Dr. Mery Raymond Work Phone: [facility] 07-31-2023 12:59-0400 Heart rate 71 /min Dr. Mery Raymond Work Phone: [facility] 07-31-2023 12:59-0400 Systolic blood pressure 108 mm[Hg] Dr. Mery Raymond Work Phone: [facility] 07-31-2023 12:01-0400 Inhaled oxygen flow rate 2 L/min Dr. Mery Raymond Work Phone: [facility] 07-31-2023 12:01-0400 SaO2% (BldA) [Mass fraction] 95 % Dr. Mery Raymond Work Phone: [facility] 07-31-2023 09:21-0400 Inhaled oxygen concentration 30 % Dr. Mery Raymond Work Phone: [facility] 07-31-2023 09:21-0400 Respiratory rate 24 /min Dr. Mery Raymond Work Phone: [facility] 07-31-2023 08:41-0400 Body temperature 97.8 [degF] Dr. Mery Raymond Work Phone: [facility] 07-31-2023 03:43-0400 Body mass index (BMI) [Ratio] 33.3 kg/m2 Dr. Mery Raymond Work Phone: [facility] 07-31-2023 03:43-0400 Body weight 105.[address] Mery Raymond Work Phone: [facility] 07-29-2023 08:14-0400 Body height 177.[address] Mery Raymond Work Phone: [facility] 07-28-2023 22:00-0400 Body temperature 98.8 [degF] Dr. Mery Raymond Work Phone: [facility] 07-28-2023 22:00-0400 Diastolic blood pressure 89 mm[Hg] Dr. Mery Raymond Work Phone: [facility] 07-28-2023 22:00-0400 Heart rate 75 /min Dr. Mery Raymond Work Phone: [facility] 07-28-2023 22:00-0400 Respiratory rate 18 /min Dr. Mery Raymond Work Phone: [facility] 07-28-2023 22:00-0400 SaO2% (BldA) [Mass fraction] 99 % Dr. Mery Raymond Work Phone: [facility] 07-28-2023 22:00-0400 Systolic blood pressure 153 mm[Hg] Dr. Mery Raymond Work Phone: [facility] 07-28-2023 18:30-0400 Inhaled oxygen concentration 30 % Dr. Mery Raymond Work Phone: [facility] 07-28-2023 14:46-0400 Inhaled oxygen flow rate 3 L/min Dr. Mery Raymond Work Phone: [facility] 07-28-2023 14:39-0400 Body height [address] Mery Raymond Work Phone: [facility] 07-28-2023 14:39-0400 Body mass index (BMI) [Ratio] 35.8 kg/m2 Dr. Mery Raymond Work Phone: [facility] 07-28-2023 14:39-0400 Body weight 113.[address] Mery Raymond Work Phone: [facility] 07-20-2023 18:08-0400 Body temperature 98.1 [degF] Dr. Mery Raymond Work Phone: [facility] 07-20-2023 18:08-0400 Diastolic blood pressure 81 mm[Hg] Dr. Mery Raymond Work Phone: [facility] 07-20-2023 18:08-0400 Heart rate 70 /min Dr. Mery Raymond Work Phone: [facility] 07-20-2023 18:08-0400 Respiratory rate 24 /min Dr. Mery Raymond Work Phone: [facility] 07-20-2023 18:08-0400 SaO2% (BldA) [Mass fraction] 94 % Dr. Mery Raymond Work Phone: [facility] 07-20-2023 18:08-0400 Systolic blood pressure 143 mm[Hg] Dr. Mery Raymond Work Phone: [facility] 07-20-2023 14:25-0400 Body height 177.[address] Mery Raymond Work Phone: [facility] 07-13-2023 09:02-0400 Body temperature 97.7 [degF] Dr. Mery Raymond Work Phone: [facility] 07-13-2023 09:02-0400 Diastolic blood pressure 61 mm[Hg] Dr. Mery Raymond Work Phone: [facility] 07-13-2023 09:02-0400 Heart rate 70 /min Dr. Mery Raymond Work Phone: [facility] 07-13-2023 09:02-0400 Respiratory rate 18 /min Dr. Mery Raymond Work Phone: [facility] 07-13-2023 09:02-0400 SaO2% (BldA) [Mass fraction] 94 % Dr. Mery Raymond Work Phone: [facility] 07-13-2023 09:02-0400 Systolic blood pressure 113 mm[Hg] Dr. Mery Raymond Work Phone: [facility] 07-13-2023 07:14-0400 Body height 177.[address] Mery Raymond Work Phone: [facility] 07-13-2023 07:14-0400 Body mass index (BMI) [Ratio] 33.2 kg/m2 Dr. Mery Raymond Work Phone: [facility] 07-13-2023 07:14-0400 Body weight [address] Mery Raymond Work Phone: [facility] 07-12-2023 13:04-0400 Body mass index (BMI) [Ratio] 32.1 kg/m2 Dr. Mery Raymond Work Phone: [facility] 07-12-2023 13:04-0400 Body weight 101.[address] Mery Raymond Work Phone: [facility] 07-12-2023 13:04-0400 Diastolic blood pressure 76 mm[Hg] Dr. Mery Raymond Work Phone: [facility] 07-12-2023 13:04-0400 Heart rate 69 /min Dr. Mery Raymond Work Phone: [facility] 07-12-2023 13:04-0400 Respiratory rate 18 /min Dr. Mery Raymond Work Phone: [facility] 07-12-2023 13:04-0400 SaO2% (BldA) [Mass fraction] 95 % Dr. Mery Raymond Work Phone: [facility] 07-12-2023 13:04-0400 Systolic blood pressure 129 mm[Hg] Dr. Mery Raymond Work Phone: [facility] 06-20-2023 22:15-0400 Diastolic blood pressure 79 mm[Hg] Dr. Mery Raymond Work Phone: [facility] 06-20-2023 22:15-0400 Heart rate 94 /min Dr. Mery Raymond Work Phone: [facility] 06-20-2023 22:15-0400 Systolic blood pressure 154 mm[Hg] Dr. Mery Raymond Work Phone: [facility] 06-20-2023 20:30-0400 Body temperature 97.4 [degF] Dr. Mery Raymond Work Phone: [facility] 06-20-2023 20:30-0400 Respiratory rate 18 /min Dr. Mery Raymond Work Phone: [facility] 06-20-2023 20:30-0400 SaO2% (BldA) [Mass fraction] 95 % Dr. Mery Raymond Work Phone: [facility] 06-20-2023 14:18-0400 Body temperature 97.7 [degF] Dr. Mery Raymond Work Phone: [facility] 06-20-2023 14:18-0400 Respiratory rate 18 /min Dr. Mery Raymond Work Phone: [facility] 06-20-2023 14:18-0400 SaO2% (BldA) [Mass fraction] 93 % Dr. Mery Raymond Work Phone: [facility] 06-20-2023 11:10-0400 Body height 177.[address] Mery Raymond Work Phone: [facility] 06-20-2023 11:10-0400 Body weight 108.[address] Mery Raymond Work Phone: [facility] 06-20-2023 08:23-0400 Inhaled oxygen flow rate 2 L/min Dr. Mery Raymond Work Phone: [facility] 06-20-2023 03:04-0400 Body mass index (BMI) [Ratio] 34.3 kg/m2 Dr. Mery Raymond Work Phone: [facility] 06-08-2023 14:21-0500 Diastolic blood pressure 67 mm[Hg] Dr. Mery Raymond Work Phone: [facility] 06-08-2023 14:21-0500 Heart rate 66 /min Dr. Mery Raymond Work Phone: [facility] 06-08-2023 14:21-0500 Systolic blood pressure 138 mm[Hg] Dr. Mery Raymond Work Phone: [facility] 06-08-2023 14:16-0500 Body temperature 97.9 [degF] Dr. Mery Raymond Work Phone: [facility] 06-08-2023 14:16-0500 Respiratory rate 16 /min Dr. Mery Raymond Work Phone: [facility] 06-08-2023 14:16-0500 SaO2% (BldA) [Mass fraction] 96 % Dr. Mery Raymond Work Phone: [facility] 06-08-2023 06:44-0500 Inhaled oxygen concentration 21 % Dr. Mery Raymond Work Phone: [facility] 06-08-2023 06:00-0500 Body mass index (BMI) [Ratio] 34.1 kg/m2 Dr. Mery Raymond Work Phone: [facility] 06-08-2023 06:00-0500 Body weight 107.[address] Mery Raymond Work Phone: [facility] 06-07-2023 10:26-0500 Body height 177.[address] Mery Raymond Work Phone: [facility] 06-07-2023 09:49-0500 Diastolic blood pressure 78 mm[Hg] Dr. Mery Raymond Work Phone: [facility] 06-07-2023 09:49-0500 Heart rate 64 /min Dr. Mery Raymond Work Phone: [facility] 06-07-2023 09:49-0500 Respiratory rate 16 /min Dr. Mery Raymond Work Phone: [facility] 06-07-2023 09:49-0500 SaO2% (BldA) [Mass fraction] 97 % Dr. Mery Raymond Work Phone: [facility] 06-07-2023 09:49-0500 Systolic blood pressure 148 mm[Hg] Dr. Mery Raymond Work Phone: [facility] 06-07-2023 08:16-0500 Body temperature 97 [degF] Dr. Mery Raymond Work Phone: [facility] 06-07-2023 06:45-0500 Body temperature 97.8 [degF] Dr. Mery Raymond Work Phone: [facility] 06-07-2023 06:45-0500 Diastolic blood pressure 99 mm[Hg] Dr. Mery Raymond Work Phone: [facility] 06-07-2023 06:45-0500 Heart rate 82 /min Dr. Mery Raymond Work Phone: [facility] 06-07-2023 06:45-0500 Respiratory rate 16 /min Dr. Mery Raymond Work Phone: [facility] 06-07-2023 06:45-0500 SaO2% (BldA) [Mass fraction] 99 % Dr. Mery Raymond Work Phone: [facility] 06-07-2023 06:45-0500 Systolic blood pressure 138 mm[Hg] Dr. Mery Raymond Work Phone: [facility] 06-07-2023 03:22-0500 Body height 177.[address] Mery Raymond Work Phone: [facility] 06-07-2023 03:22-0500 Body mass index (BMI) [Ratio] 32.1 kg/m2 Dr. Mery Raymond Work Phone: [facility] 06-07-2023 03:22-0500 Body weight 101.[address] Mery Raymond Work Phone: [facility] 05-31-2023 08:45-0500 Body mass index (BMI) [Ratio] 33.4 kg/m2 Dr. Mery Raymond Work Phone: [facility] 05-31-2023 08:45-0500 Body temperature 97.8 [degF] Dr. Mery Raymond Work Phone: [facility] 05-31-2023 08:45-0500 Body weight 105.[address] Mery Raymond Work Phone: [facility] 05-31-2023 08:45-0500 Diastolic blood pressure 98 mm[Hg] Dr. Mery Raymond Work Phone: [facility] 05-31-2023 08:45-0500 Heart rate 72 /min Dr. Mery Raymond Work Phone: [facility] 05-31-2023 08:45-0500 Respiratory rate 18 /min Dr. Mery Raymond Work Phone: [facility] 05-31-2023 08:45-0500 SaO2% (BldA) [Mass fraction] 98 % Dr. Mery Raymond Work Phone: [facility] 05-31-2023 08:45-0500 Systolic blood pressure 150 mm[Hg] Dr. Mery Rayomnd Work Phone: [facility] 05-30-2023 12:47-0500 Body mass index (BMI) [Ratio] 33.7 kg/m2 Dr. Mery Raymond Work Phone: [facility] 05-30-2023 12:47-0500 Body temperature 98.2 [degF] Dr. Mery Raymond Work Phone: [facility] 05-30-2023 12:47-0500 Body weight 106.[address] Mery Raymond Work Phone: [facility] 05-30-2023 12:47-0500 Diastolic blood pressure 90 mm[Hg] Dr. Mery Raymond Work Phone: [facility] 05-30-2023 12:47-0500 Heart rate 68 /min Dr. Mery Raymond Work Phone: [facility] 05-30-2023 12:47-0500 Respiratory rate 18 /min Dr. Mery Raymond Work Phone: [facility] 05-30-2023 12:47-0500 SaO2% (BldA) [Mass fraction] 96 % Dr. Mery Raymond Work Phone: [facility] 05-30-2023 12:47-0500 Systolic blood pressure 150 mm[Hg] Dr. Mery Raymond Work Phone: [facility] 05-30-2023 08:35-0500 Body mass index (BMI) [Ratio] 33.7 kg/m2 Dr. Mery Raymond Work Phone: [facility] 05-30-2023 08:35-0500 Body weight 106.[address] Mery Raymond Work Phone: [facility] 05-30-2023 08:35-0500 Diastolic blood pressure 100 mm[Hg] Dr. Mery Raymond Work Phone: [facility] 05-30-2023 08:35-0500 Heart rate 79 /min Dr. Mery Raymond Work Phone: [facility] 05-30-2023 08:35-0500 Respiratory rate 22 /min Dr. Mery Raymond Work Phone: [facility] 05-30-2023 08:35-0500 SaO2% (BldA) [Mass fraction] 97 % Dr. Mery Raymond Work Phone: [facility] 05-30-2023 08:35-0500 Systolic blood pressure 175 mm[Hg] Dr. Mery Raymond Work Phone: [facility] 04-29-2023 13:04-0500 Body temperature 98.4 [degF] Dr. Mery Raymond Work Phone: [facility] 04-29-2023 13:04-0500 Diastolic blood pressure 88 mm[Hg] Dr. Mery Raymond Work Phone: [facility] 04-29-2023 13:04-0500 Heart rate 86 /min Dr. Mery Raymond Work Phone: [facility] 04-29-2023 13:04-0500 Respiratory rate 18 /min Dr. Mery Raymond Work Phone: [facility] 04-29-2023 13:04-0500 SaO2% (BldA) [Mass fraction] 97 % Dr. Mery Raymond Work Phone: [facility] 04-29-2023 13:04-0500 Systolic blood pressure 142 mm[Hg] Dr. Mery Raymond Work Phone: [facility] 04-29-2023 06:00-0500 Body mass index (BMI) [Ratio] 34 kg/m2 Dr. Mery Raymond Work Phone: [facility] 04-29-2023 06:00-0500 Body weight 107.[address] Mery Raymond Work Phone: [facility] 04-29-2023 04:00-0500 Inhaled oxygen flow rate 2 L/min Dr. Mery Raymond Work Phone: [facility] 04-26-2023 23:31-0500 Body height 177.[address] Mery Raymond Work Phone: [facility] 04-26-2023 22:24-0500 Body temperature 97.9 [degF] Dr. Mery Raymond Work Phone: [facility] 04-26-2023 22:20-0500 Heart rate 80 /min Dr. Mery Raymond Work Phone: [facility] 04-26-2023 22:20-0500 Respiratory rate 19 /min Dr. Mery Raymond Work Phone: [facility] 04-26-2023 22:20-0500 SaO2% (BldA) [Mass fraction] 94 % Dr. Mery Raymond Work Phone: [facility] 04-26-2023 22:15-0500 Diastolic blood pressure 93 mm[Hg] Dr. Mery Raymond Work Phone: [facility] 04-26-2023 22:15-0500 Systolic blood pressure 166 mm[Hg] Dr. Mery Raymond Work Phone: [facility] 04-26-2023 19:15-0500 Body height 177.[address] Mery Raymond Work Phone: [facility] 04-26-2023 17:00-0500 Heart rate 94 /min Dr. Mery Raymond Work Phone: [facility] 04-26-2023 17:00-0500 Respiratory rate 16 /min Dr. Mery Raymond Work Phone: [facility] 04-26-2023 17:00-0500 SaO2% (BldA) [Mass fraction] 99 % Dr. Mery Raymond Work Phone: [facility] 04-26-2023 17:00-0500 Systolic blood pressure 152 mm[Hg] Dr. Mery Raymond Work Phone: [facility] 04-26-2023 14:37-0500 Body height 177.[address] Mery Raymond Work Phone: [facility] 04-26-2023 14:37-0500 Body mass index (BMI) [Ratio] 35.8 kg/m2 Dr. Mery Raymond Work Phone: [facility] 04-26-2023 14:37-0500 Body temperature 96.1 [degF] Dr. Mery Raymond Work Phone: [facility] 04-26-2023 14:37-0500 Body weight 113.[address] Mery Raymond Work Phone: [facility] 04-14-2023 14:10-0500 Body height 177.[address] Mery Raymond Work Phone: [facility] 04-14-2023 14:10-0500 Body mass index (BMI) [Ratio] 34 kg/m2 Dr. Mery Raymond Work Phone: [facility] 04-14-2023 14:10-0500 Body temperature 98.1 [degF] Dr. Mery Raymond Work Phone: [facility] 04-14-2023 14:10-0500 Body weight 107.[address] Mery Raymond Work Phone: [facility] 04-14-2023 14:10-0500 Diastolic blood pressure 72 mm[Hg] Dr. Mery Raymond Work Phone: [facility] 04-14-2023 14:10-0500 Heart rate 99 /min Dr. Mery Raymond Work Phone: [facility] 04-14-2023 14:10-0500 Respiratory rate 16 /min Dr. Mery Raymond Work Phone: [facility] 04-14-2023 14:10-0500 SaO2% (BldA) [Mass fraction] 99 % Dr. Mery Raymond Work Phone: [facility] 04-14-2023 14:10-0500 Systolic blood pressure 142 mm[Hg] Dr. Mery Raymond Work Phone: [facility] 03-18-2023 10:16-0500 SaO2% (BldA) [Mass fraction] 99 % Dr. Mery Raymond Work Phone: [facility] 03-18-2023 10:15-0500 Diastolic blood pressure 79 mm[Hg] Dr. Mery Raymond Work Phone: [facility] 03-18-2023 10:15-0500 Heart rate 76 /min Dr. Mery Raymond Work Phone: [facility] 03-18-2023 10:15-0500 Systolic blood pressure 138 mm[Hg] Dr. Mery Raymond Work Phone: [facility] 03-18-2023 08:23-0500 Inhaled oxygen flow rate 2 L/min Dr. Mery Raymond Work Phone: [facility] 03-18-2023 07:57-0500 Body temperature 98.1 [degF] Dr. Mery Raymond Work Phone: [facility] 03-18-2023 07:57-0500 Respiratory rate 22 /min Dr. Mery Raymond Work Phone: [facility] 03-18-2023 05:17-0500 Body mass index (BMI) [Ratio] 35.7 kg/m2 Dr. Mery Raymond Work Phone: [facility] 03-18-2023 05:17-0500 Body weight 113.[address] Mery Raymond Work Phone: [facility] 03-13-2023 20:00-0500 Heart rate 78 /min Dr. Mery Raymond Work Phone: [facility] 03-13-2023 20:00-0500 Respiratory rate 16 /min Dr. Mery Raymond Work Phone: [facility] 03-13-2023 20:00-0500 SaO2% (BldA) [Mass fraction] 94 % Dr. Mery Raymond Work Phone: [facility] 03-13-2023 19:15-0500 Diastolic blood pressure 67 mm[Hg] Dr. Mery Raymond Work Phone: [facility] 03-13-2023 19:15-0500 Systolic blood pressure 126 mm[Hg] Dr. Mery Raymond Work Phone: [facility] 03-13-2023 19:00-0500 Body temperature 97.3 [degF] Dr. Mery Raymond Work Phone: [facility] 03-13-2023 16:02-0500 Body height 177.[address] Mery Raymond Work Phone: [facility] 03-13-2023 16:02-0500 Body mass index (BMI) [Ratio] 38.5 kg/m2 Dr. Mery Raymond Work Phone: [facility] 03-13-2023 16:02-0500 Body weight 121.[address] Mery Raymond Work Phone: [facility] 03-07-2023 10:12-0500 Body mass index (BMI) [Ratio] 35.9 kg/m2 Dr. Mery Raymond Work Phone: [facility] 03-07-2023 10:12-0500 Body temperature 98.4 [degF] Dr. Mery Raymond Work Phone: [facility] 03-07-2023 10:12-0500 Body weight 113.[address] Mery Raymond Work Phone: [facility] 03-07-2023 10:12-0500 Diastolic blood pressure 82 mm[Hg] Dr. Mery Raymond Work Phone: [facility] 03-07-2023 10:12-0500 Heart rate 88 /min Dr. Mery Raymond Work Phone: [facility] 03-07-2023 10:12-0500 Respiratory rate 18 /min Dr. Mery Raymond Work Phone: [facility] 03-07-2023 10:12-0500 SaO2% (BldA) [Mass fraction] 96 % Dr. Mery Raymond Work Phone: [facility] 03-07-2023 10:12-0500 Systolic blood pressure 130 mm[Hg] Dr. Mery Raymond Work Phone: [facility] 03-03-2023 12:50-0500 Body temperature 97.4 [degF] Dr. Mery Raymond Work Phone: [facility] 03-03-2023 12:50-0500 Diastolic blood pressure 71 mm[Hg] Dr. Mery Raymond Work Phone: [facility] 03-03-2023 12:50-0500 Heart rate 75 /min Dr. Mery Raymond Work Phone: [facility] 03-03-2023 12:50-0500 Respiratory rate 18 /min Dr. Mery Raymond Work Phone: [facility] 03-03-2023 12:50-0500 SaO2% (BldA) [Mass fraction] 95 % Dr. Mery Raymond Work Phone: [facility] 03-03-2023 12:50-0500 Systolic blood pressure 135 mm[Hg] Dr. Mery Raymond Work Phone: [facility] 03-03-2023 10:07-0500 Inhaled oxygen flow rate 0 L/min Dr. Mery Raymond Work Phone: [facility] 03-03-2023 06:00-0500 Body mass index (BMI) [Ratio] 34.7 kg/m2 Dr. Mery Raymond Work Phone: [facility] 03-03-2023 06:00-0500 Body weight [address] Mery Raymond Work Phone: [facility] 03-01-2023 13:04-0500 Body height 177.[address] Mery Raymond Work Phone: [facility] 02-26-2023 03:14-0500 Diastolic blood pressure 86 mm[Hg] [facility] 02-26-2023 03:14-0500 Heart rate 98 /min [facility] 02-26-2023 03:14-0500 Respiratory rate 20 /min [facility] 02-26-2023 03:14-0500 SaO2% (BldA) [Mass fraction] 94 % [facility] 02-26-2023 03:14-0500 Systolic blood pressure 151 mm[Hg] [facility] 02-26-2023 01:56-0500 Inhaled oxygen flow rate 4 L/min [facility] 02-26-2023 01:17-0500 Body temperature 97.3 [degF] [facility] 02-26-2023 01:14-0500 Body height 177.8 cm [facility] 02-26-2023 01:14-0500 Body mass index (BMI) [Ratio] 38.2 kg/m2 [facility] 02-26-2023 01:14-0500 Body weight 120.8 kg [facility] 10-27-2022 08:55-0400 Diastolic blood pressure 82 mm[Hg] dong Raymond [facility] 10-27-2022 08:55-0400 Heart rate 70 /min dong Raymond [facility] 10-27-2022 08:55-0400 Systolic blood pressure 166 mm[Hg] dong Raymond [facility] 10-27-2022 08:48-0400 Body temperature 97.6 [degF] [facility]ong [facility] 10-27-2022 08:48-0400 Respiratory rate 18 /min [facility] 10-27-2022 08:48-0400 SaO2% (BldA) [Mass fraction] 94 % [facility]-27-[facility] 05:29-0400 Body mass index (BMI) [Ratio] 37.3 kg/m2 [facility] 10-27-2022 05:29-0400 Body weight 118.2 kg [facility] 10-26-2022 06:19-0400 Inhaled oxygen flow rate 2 L/min [facility] 10-24-2022 02:29-0400 Body height 177.8 cm dong [facility] 10-21-2022 02:35-0400 Body height 177.8 cm [facility] 10-21-2022 02:35-0400 Body mass index (BMI) [Ratio] 38.2 kg/m2 dong [facility] 10-21-2022 02:35-0400 Body weight 120.7 kg [facility] 10-21-2022 01:33-0400 Diastolic blood pressure 107 mm[Hg] dong [facility] 10-21-2022 01:33-0400 Heart rate 87 /min [facility] 10-21-2022 01:33-0400 Respiratory rate 24 /min dong Paulalicia [facility] 10-21-2022 01:33-0400 SaO2% (BldA) [Mass fraction] 93 % dong Raymond [facility] 10-21-2022 01:33-0400 Systolic blood pressure 161 mm[Hg] dong Raymond [facility] 10-20-2022 22:50-0400 Body temperature 97.7 [degF] dong [facility] 10-18-2022 14:49-0400 Body temperature 98.4 [degF] dong Raymond [facility] 10-18-2022 14:49-0400 Diastolic blood pressure 93 mm[Hg] alvaroadenajenaro [facility] 10-18-2022 14:49-0400 Heart rate 74 /min [facility] 10-18-2022 14:49-0400 Respiratory rate 20 /min [facility] Crowleyjoc[facility] 10-18-2022 14:49-0400 SaO2% (BldA) [Mass fraction] 94 % [facility] 10-18-2022 14:49-0400 Systolic blood pressure 145 mm[Hg] dong [facility] 10-18-2022 03:27-0400 Inhaled oxygen concentration 30 % dong [facility] 10-18-2022 02:58-0400 Inhaled oxygen flow rate 2 L/min dong Raymond [facility] 10-17-2022 04:03-0400 Body height 177.8 cm dong [facility] 10-17-2022 04:03-0400 Body mass index (BMI) [Ratio] 37.4 kg/m2 dong Raymond [facility] 10-17-2022 04:03-0400 Body weight 118.4 kg dong [facility] 10-17-2022 03:42-0400 Diastolic blood pressure 90 mm[Hg] dong Paulalicia [facility] 10-17-2022 03:42-0400 Systolic blood pressure 171 mm[Hg] dong Paulalicia [facility] [facility] 10[facility]17-2022 02:47-0400 Body temperature 98.2 [degF] dong Crowleyjocelyn [facility] 10-17-2022 02:47-0400 Heart rate 79 /min dong Paulalicia [facility] 10-17-2022 02:47-0400 Respiratory rate 15 /[facility] 10-17-2022 02:47-0400 SaO2% (BldA) [Mass fraction] 92 % [facility] 10-16-2022 23:45-0400 Body height 177.8 cm [facility] 10-16-2022 23:45-0400 Body mass index (BMI) [Ratio] 37.8 kg/m2 [facility] 10-16-2022 23:45-0400 Body weight 119.7 kg dong Crowleyjocelyn [facility] 09-06-2022 15:16-0400 Diastolic blood pressure 78 mm[Hg] dong Crowleyjocelyn [facility] 09-06-2022 15:16-0400 Systolic blood pressure 124 mm[Hg] dong Crowleyjocelyn [facility] 09-06-2022 14:23-0400 Body mass index (BMI) [Ratio] 39.6 kg/m2 [facility] 09-06-2022 14:23-0400 Body weight 125.19 kg [facility] 09-06-2022 14:23-0400 Respiratory rate 18 /min [facility] Crowleyjocelyn [facility] 09-06-2022 13:18-0400 Body mass index (BMI) [Ratio] 39.6 kg/m2 MD Efewongbe Oleghe [facility] 09-06-2022 13:18-0400 Body temperature 98.2 [degF] dong Paulalicia [facility] 09-06-2022 13:18-0400 Body weight 125.36 kg Judedong Paulalicia [facility] 09-06-2022 13:18-0400 Diastolic blood pressure 76 mm[Hg] dong Crowleyjocelyn [facility] 09-06-2022 13:18-0400 Heart rate 88 /min dong Paulalicia [facility] 09-06-2022 13:18-0400 Respiratory rate 20 /min alvaroyoselin Paulalicia [facility] 09-06-2022 13:18-0400 SaO2% (BldA) [Mass fraction] 92 % [facility] 09-06-2022 13:18-0400 Systolic blood pressure 132 mm[Hg] [facility] 08-18-2022 13:49-0400 Body mass index (BMI) [Ratio] 38.1 kg/m2 [facility] 08-18-2022 13:49-0400 Body temperature 98.5 [degF] [facility] 08-18-2022 13:49-0400 Body weight 120.65 kg dong Paulalicia [facility] 08-18-2022 13:49-0400 Diastolic blood pressure 66 mm[Hg] alvaroyoselin Paulalicia [facility] 08-18-2022 13:49-0400 Heart rate 85 /min alvraoyoselin [facility] 08-18-2022 13:49-0400 Respiratory rate 14 /min [facility]ong [facility] 08-18-2022 13:49-0400 SaO2% (BldA) [Mass fraction] 98 % [facility]varoyoselin [facility] 08-18-2022 13:49-0400 Systolic blood pressure 124 mm[Hg] MD Mery Raymond [facility] 06-07-2022 14:33-0500 Body height 177.8 cm Judedong [facility] 06-07-2022 14:31-0500 Body mass index (BMI) [Ratio] 38.4 kg/m2 dong [facility] 06-07-2022 14:31-0500 Body weight 121.56 kg [facility] 06-07-2022 14:31-0500 Diastolic blood pressure 88 mm[Hg] [facility]-07-2022 14:31-0500 Heart rate 82 /min dong Paulalicia [facility] 06-07-2022 14:31-0500 Respiratory rate 20 /min [facility] 06-07-2022 14:31-0500 SaO2% (BldA) [Mass fraction] 98 % [facility] 06-07-2022 14:31-0500 Systolic blood pressure 135 mm[Hg] [facility]-24[facility] 13:13-0500 Body temperature 97.5 [degF] dong Paulalicia [facility] 05-24-2022 13:13-0500 Body weight 124.45 kg dong Paulalicia [facility] 05-24-2022 13:13-0500 Diastolic blood pressure 71 mm[Hg] [facility] 05-24-2022 13:13-0500 Heart rate 64 /min MD Mery Paulalicia [facility] 05-24-2022 13:13-0500 Respiratory rate 18 /min MD Mery Paulalicia [facility] 05-24-2022 13:13-0500 SaO2% (BldA) [Mass fraction] 92 % [facility] 05-24-2022 13:13-0500 Systolic blood pressure 127 mm[Hg] [facility] 05-20-2022 14:55-0500 Diastolic blood pressure 79 mm[Hg] [facility] 05-20-2022 14:55-0500 Heart rate 58 /min [facility] 05-20-2022 14:55-0500 Respiratory rate 16 /min MD Mery Raymond [facility] 05-20-2022 14:55-0500 SaO2% (BldA) [Mass fraction] 95 % [facility] 05-20-2022 14:55-0500 Systolic blood pressure 144 mm[Hg] [facility] 05-20-2022 11:30-0500 Body height 177.8 cm [facility] 05-20-2022 11:30-0500 Body mass index (BMI) [Ratio] 39.7 kg/m2 [facility] 05-20-2022 11:30-0500 Body temperature 97.3 [degF] MD Mery Raymond [facility] 05-20-2022 11:30-0500 Body weight 125.64 kg [facility] 05-19-2022 13:31-0500 Body mass index (BMI) [Ratio] 39.9 kg/m2 [facility] 05-19-2022 13:31-0500 Body temperature 97.9 [degF] MD Mery Raymond [facility] 05-19-2022 13:31-0500 Body weight 126.09 kg MD Mery Raymond [facility] 05-19-2022 13:31-0500 Diastolic blood pressure 62 mm[Hg] [facility] 05-19-2022 13:31-0500 Heart rate 59 /min MD Mery Raymond [facility] 05-19-2022 13:31-0500 Respiratory rate 16 /min [facility] 05-19-2022 13:31-0500 SaO2% (BldA) [Mass fraction] 95 % [facility] 05-19-2022 13:31-0500 Systolic blood pressure 128 mm[Hg] dong Paulalicia [facility] 04-14-2022 08:08-0500 Body mass index (BMI) [Ratio] 39.4 kg/m2 [facility] 04-14-2022 08:08-0500 Body temperature 98.1 [degF] [facility] 04-14-2022 08:08-0500 Body weight 124.73 kg [facility]14-[facility]22 08:08-0500 Diastolic blood pressure 74 mm[Hg] dong [facility] 04-14-2022 08:08-0500 Heart rate 61 /min [facility] 04-14-2022 08:08-0500 Respiratory rate 18 /[facility] 04-14-2022 08:08-0500 SaO2% (BldA) [Mass fraction] 96 % [facility] 04-14-2022 08:08-0500 Systolic blood pressure 149 mm[Hg] [facility] 02-24-2022 13:33-0500 Body mass index (BMI) [Ratio] 39 kg/m2 [facility] 02-24-2022 13:33-0500 Body temperature 96.7 [degF] [facility] 02-24-2022 13:33-0500 Body weight 123.43 kg [facility] 02-24-2022 13:33-0500 Diastolic blood pressure 78 mm[Hg] dong [facility] 02-24-2022 13:33-0500 Heart rate 59 /min MD Ordonez [facility] 02-24-2022 13:33-0500 Respiratory rate 20 /min [facility] 02-24-2022 13:33-0500 SaO2% (BldA) [Mass fraction] 93 % [facility] 02-24-2022 13:33-0500 Systolic blood pressure 146 mm[Hg] [facility] 02-16-2022 10:57-0500 Body height 177.8 cm [facility] Work [facility]: 02-16-2022 10:57-0500 Body mass index (BMI) [Ratio] 38.7 kg/m2 [facility] 02-16-2022 10:57-0500 Body temperature 97 [degF] [facility] 02-16-2022 10:57-0500 Body weight 122.46 kg [facility] 02-16-2022 10:57-0500 Diastolic blood pressure 72 mm[Hg] [facility] 02-16-2022 10:57-0500 Heart rate 64 /min [facility] 02-16-2022 10:57-0500 Respiratory rate 16 /min dong [facility] 02-16-2022 10:57-0500 SaO2% (BldA) [Mass fraction] 99 % [facility] 02-16-2022 10:57-0500 Systolic blood pressure 130 mm[Hg] [facility] 01-17-2022 10:34-0400 Body mass index (BMI) [Ratio] 37.3 kg/m2 [facility] Work Phone: 01-17-2022 10:34-0400 Body weight 117.93 kg [facility] Work Phone: 01-17-2022 10:34-0400 Diastolic blood pressure 81 mm[Hg] MD Mery Raymond [facility] Work Phone: 01-17-2022 10:34-0400 Heart rate 59 /min MD Mery Raymond [facility] Work Phone: 01-17-2022 10:34-0400 Respiratory rate 18 /min MD Mery Raymond [facility] Work Phone: 01-17-2022 10:34-0400 SaO2% (BldA) [Mass fraction] 96 % MD Mery Paulkvngjocelyn [facility] Work Phone: 01-17-2022 10:34-0400 Systolic blood pressure 165 mm[Hg] [facility] Work [facility] 11-24-2021 16:16-0400 Body temperature 96.6 [degF] Dr. Mery Raymond Work Phone: [facility] Work Phone: 11-24-2021 16:16-0400 Diastolic blood pressure 59 mm[Hg] Dr. Mery Raymond Work Phone: [facility] Work Phone: 11-24-2021 16:16-0400 Heart rate 61 /min Dr. Mery Raymond Work Phone: [facility] Work Phone: 11-24-2021 16:16-0400 Respiratory rate 14 /min Dr. Mery Raymond Work Phone: [facility] Work Phone: 11-24-2021 16:16-0400 SaO2% (BldA) [Mass fraction] 96 % Dr. Mery Raymond Work Phone: [facility] Work Phone: 11-24-2021 16:16-0400 Systolic blood pressure 119 mm[Hg] Dr. Mery Raymond Work Phone: [facility] Work Phone: 11-24-2021 12:58-0400 Body height 177.[address] Mery Raymond Work Phone: [facility] Work Phone: 11-24-2021 12:58-0400 Body mass index (BMI) [Ratio] 37.1 kg/m2 Dr. Mery Raymond Work Phone: [facility] Work Phone: 11-24-2021 12:58-0400 Body weight 117.[address] Mery Raymond Work Phone: [facility] Work Phone: 11-24-2021 11:13-0400 Body mass index (BMI) [Ratio] 37.2 kg/m2 Dr. Mery Raymond Work Phone: [facility] Work Phone: 11-24-2021 11:13-0400 Body temperature 96.6 [degF] Dr. Mery Raymond Work Phone: [facility] Work Phone: 11-24-2021 11:13-0400 Body weight 117.[address] Mery Raymond Work Phone: [facility] Work Phone: 11-24-2021 11:13-0400 Diastolic blood pressure 77 mm[Hg] Dr. Meyr Raymond Work Phone: [facility] Work Phone: 11-24-2021 11:13-0400 Heart rate 72 /min Dr. Mery Raymond Work Phone: [facility] Work Phone: 11-24-2021 11:13-0400 Respiratory rate 18 /min Dr. Mery Raymond Work Phone: [facility] Work Phone: 11-24-2021 11:13-0400 SaO2% (BldA) [Mass fraction] 95 % Dr. Mery Raymond Work Phone: [facility] Work Phone: 11-24-2021 11:13-0400 Systolic blood pressure 134 mm[Hg] Dr. Mery Raymond Work Phone: [facility] Work Phone: 2021 13:03-0400 Body height 177.[address] Mery Raymond Work Phone: [facility] Work Phone: 2021 13:03-0400 Body mass index (BMI) [Ratio] 37.5 kg/m2 Dr. Mery Raymond Work Phone: [facility] Work Phone: 2021 13:03-0400 Body temperature 98.7 [degF] Dr. Mery Raymond Work Phone: [facility] Work Phone: 2021 13:03-0400 Body weight 118.[address] Mery Raymond Work Phone: [facility] Work Phone: 2021 13:03-0400 Diastolic blood pressure 74 mm[Hg] Dr. Mery Raymond Work Phone: [facility] Work Phone: 2021 13:03-0400 Heart rate 67 /min Dr. Mery Raymond Work Phone: [facility] Work Phone: 2021 13:03-0400 Respiratory rate 14 /min Dr. Mery Raymond Work Phone: [facility] Work Phone: 2021 13:03-0400 SaO2% (BldA) [Mass fraction] 97 % Dr. Mery Raymond Work Phone: [facility] Work Phone: 2021 13:03-0400 Systolic blood pressure 124 mm[Hg] Dr. Mery Raymond Work Phone: [facility] Work Phone: 10-22-2021 08:24-0400 Body height 177.[address] Mery Raymond Work Phone: [facility] Work Phone: 10-22-2021 08:24-0400 Body mass index (BMI) [Ratio] 39.5 kg/m2 Dr. Mery Raymond Work Phone: [facility] Work Phone: 10-22-2021 08:24-0400 Body weight 124.[address] Mery Raymond Work Phone: [facility] Work Phone: 10-22-2021 08:24-0400 Diastolic blood pressure 81 mm[Hg] Dr. Mery Raymond Work Phone: [facility] Work Phone: 10-22-2021 08:24-0400 Heart rate 67 /min Dr. Mery Raymond Work Phone: [facility] Work Phone: 10-22-2021 08:24-0400 Respiratory rate 18 /min Dr. Mery Raymond Work Phone: [facility] Work Phone: 10-22-2021 08:24-0400 SaO2% (BldA) [Mass fraction] 95 % Dr. Mery Raymond Work Phone: [facility] Work Phone: 10-22-2021 08:24-0400 Systolic blood pressure 186 mm[Hg] Dr. Mery Raymond Work Phone: [facility] Work Phone: 10-15-2021 15:31-0400 Heart rate 55 /min Dr. Mery Raymond Work Phone: [facility] Work Phone: 10-15-2021 14:00-0400 Body temperature 97.7 [degF] Dr. Mery Raymond Work Phone: [facility] Work Phone: 10-15-2021 14:00-0400 Diastolic blood pressure 74 mm[Hg] Dr. Mery Raymond Work Phone: [facility] Work Phone: 10-15-2021 14:00-0400 Respiratory rate 18 /min Dr. Mery Raymond Work Phone: [facility] Work Phone: 10-15-2021 14:00-0400 SaO2% (BldA) [Mass fraction] 95 % Dr. Mery Raymond Work Phone: [facility] Work Phone: 10-15-2021 14:00-0400 Systolic blood pressure 146 mm[Hg] Dr. Mery Raymond Work Phone: [facility] Work Phone: 10-15-2021 05:22-0400 Body weight 123.[address] Mery Raymond Work Phone: [facility] Work Phone: 10-12-2021 00:06-0400 Inhaled oxygen concentration 21 % Dr. Mery Raymond Work Phone: [facility] Work Phone: 10-11-2021 00:38-0400 Body height 177.[address] Mery Raymond Work Phone: [facility] Work Phone: 10-11-2021 00:38-0400 Body mass index (BMI) [Ratio] 38.5 kg/m2 Dr. Mery Raymond Work Phone: [facility] Work Phone: 10-11-2021 00:38-0400 Body weight 121.[address] Mery Raymond Work Phone: [facility] Work Phone: 10-10-2021 23:57-0400 Body temperature 97.9 [degF] Dr. Mery Raymond Work Phone: [facility] Work Phone: 10-10-2021 23:57-0400 Diastolic blood pressure 85 mm[Hg] Dr. Mery Raymond Work Phone: [facility] Work Phone: 10-10-2021 23:57-0400 Heart rate 75 /min Dr. Mery Raymond Work Phone: [facility] Work Phone: 10-10-2021 23:57-0400 Respiratory rate 18 /min Dr. Mery Raymond Work Phone: [facility] Work Phone: 10-10-2021 23:57-0400 SaO2% (BldA) [Mass fraction] 96 % Dr. Mery Raymond Work Phone: [facility] Work Phone: 10-10-2021 23:57-0400 Systolic blood pressure 152 mm[Hg] Dr. Mery Raymond Work Phone: [facility] Work Phone: 10-05-2021 12:21-0400 Body height 177.[address] Mery Raymond Work Phone: [facility] Work Phone: 10-05-2021 12:21-0400 Body mass index (BMI) [Ratio] 38.2 kg/m2 Dr. Mery Raymond Work Phone: [facility] Work Phone: 10-05-2021 12:21-0400 Body weight 121.[address] Mery Raymond Work Phone: [facility] Work Phone: 10-05-2021 12:21-0400 Diastolic blood pressure 84 mm[Hg] Dr. Mery Raymond Work Phone: [facility] Work Phone: 10-05-2021 12:21-0400 Heart rate 67 /min Dr. Mery Raymond Work Phone: [facility] Work Phone: 10-05-2021 12:21-0400 Respiratory rate 18 /min Dr. Mery Raymond Work Phone: [facility] Work Phone: 10-05-2021 12:21-0400 SaO2% (BldA) [Mass fraction] 97 % Dr. Mery Raymond Work Phone: [facility] Work Phone: 10-05-2021 12:21-0400 Systolic blood pressure 144 mm[Hg] Dr. Mery Raymond Work Phone: [facility] Work Phone: 09-01-2021 10:57-0400 Body mass index (BMI) [Ratio] 39.2 kg/m2 Dr. Mery Raymond Work Phone: [facility] Work Phone: 09-01-2021 10:57-0400 Body temperature 98.3 [degF] Dr. Mery Raymond Work Phone: [facility] Work Phone: 09-01-2021 10:57-0400 Body weight 123.[address] Mery Raymond Work Phone: [facility] Work Phone: 09-01-2021 10:57-0400 Diastolic blood pressure 60 mm[Hg] Dr. Mery Raymond Work Phone: [facility] Work Phone: 09-01-2021 10:57-0400 Heart rate 72 /min Dr. Mery Raymond Work Phone: [facility] Work Phone: 09-01-2021 10:57-0400 Respiratory rate 14 /min Dr. Mery Raymond Work Phone: [facility] Work Phone: 09-01-2021 10:57-0400 SaO2% (BldA) [Mass fraction] 98 % Dr. Mery Raymond Work Phone: [facility] Work Phone: 09-01-2021 10:57-0400 Systolic blood pressure 136 mm[Hg] Dr. Mery Raymond Work Phone: [facility] Work Phone: 08-23-2021 16:11-0400 Diastolic blood pressure 61 mm[Hg] Dr. Mery Raymond Work Phone: [facility] Work Phone: 08-23-2021 16:11-0400 Heart rate 61 /min Dr. Mery Raymond Work Phone: [facility] Work Phone: 08-23-2021 16:11-0400 Systolic blood pressure 137 mm[Hg] Dr. Mery Raymond Work Phone: [facility] Work Phone: 08-23-2021 14:27-0400 Body height 177.[address] Mery Raymond Work Phone: [facility] Work Phone: 08-23-2021 14:27-0400 Body mass index (BMI) [Ratio] 36.6 kg/m2 Dr. Mery Raymond Work Phone: [facility] Work Phone: 08-23-2021 14:27-0400 Body temperature 97.6 [degF] Dr. Mery Raymond Work Phone: [facility] Work Phone: 08-23-2021 14:27-0400 Body weight 115.[address] Mery Raymond Work Phone: [facility] Work Phone: 08-23-2021 14:27-0400 Respiratory rate 18 /min Dr. Mery Raymond Work Phone: [facility] Work Phone: 08-23-2021 14:27-0400 SaO2% (BldA) [Mass fraction] 97 % Dr. Mery Raymond Work Phone: [facility] Work Phone: 08-23-2021 08:47-0400 Body mass index (BMI) [Ratio] 38.2 kg/m2 Dr. Mery Raymond Work Phone: [facility] Work Phone: 08-23-2021 08:47-0400 Body temperature 95.9 [degF] Dr. Mery Raymond Work Phone: [facility] Work Phone: 08-23-2021 08:47-0400 Body weight 120.[address] Mery Raymond Work Phone: [facility] Work Phone: 08-23-2021 08:47-0400 Diastolic blood pressure 88 mm[Hg] Dr. Mery Raymond Work Phone: [facility] Work Phone: 08-23-2021 08:47-0400 Heart rate 66 /min Dr. Mery Raymond Work Phone: [facility] Work Phone: 08-23-2021 08:47-0400 Respiratory rate 18 /min Dr. Mery Raymond Work Phone: [facility] Work Phone: 08-23-2021 08:47-0400 SaO2% (BldA) [Mass fraction] 95 % Dr. Mery Raymond Work Phone: [facility] Work Phone: 08-23-2021 08:47-0400 Systolic blood pressure 140 mm[Hg] Dr. Mery Raymond Work Phone: [facility] Work Phone: 08-23-2021 08:47-0400 Body mass index (BMI) [Ratio] 38.2 kg/m2 Dr. Mery Raymond Work Phone: [facility] Work Phone: 08-23-2021 08:47-0400 Body temperature 95.9 [degF] Dr. Mery Raymond Work Phone: [facility] Work Phone: 08-23-2021 08:47-0400 Body weight 120.[address] Mery Raymond Work Phone: [facility] Work Phone: 08-23-2021 08:47-0400 Diastolic blood pressure 88 mm[Hg] Dr. Mery Raymond Work Phone: [facility] Work Phone: 08-23-2021 08:47-0400 Heart rate 66 /min Dr. Mery Raymond Work Phone: [facility] Work Phone: 08-23-2021 08:47-0400 Respiratory rate 18 /min Dr. Mery Raymond Work Phone: [facility] Work Phone: 08-23-2021 08:47-0400 SaO2% (BldA) [Mass fraction] 95 % Dr. Mery Raymond Work Phone: [facility] Work Phone: 08-23-2021 08:47-0400 Systolic blood pressure 140 mm[Hg] Dr. Mery Raymond Work Phone: [facility] Work Phone: 07-30-2021 11:33-0400 Body temperature 97.1 [degF] Dr. Mery Raymond Work Phone: [facility] Work Phone: 07-30-2021 11:33-0400 Diastolic blood pressure 77 mm[Hg] Dr. Mery Raymond Work Phone: [facility] Work Phone: 07-30-2021 11:33-0400 Heart rate 58 /min Dr. Mery Raymond Work Phone: [facility] Work Phone: 07-30-2021 11:33-0400 Respiratory rate 16 /min Dr. Mery Raymond Work Phone: [facility] Work Phone: 07-30-2021 11:33-0400 SaO2% (BldA) [Mass fraction] 96 % Dr. Mery Raymond Work Phone: [facility] Work Phone: 07-30-2021 11:33-0400 Systolic blood pressure 138 mm[Hg] Dr. Mery Raymond Work Phone: [facility] Work Phone: 07-29-2021 05:22-0400 Inhaled oxygen concentration 21 % Dr. Mery Raymond Work Phone: [facility] Work Phone: 07-27-2021 03:36-0400 Body mass index (BMI) [Ratio] 38.6 kg/m2 Dr. Mery Raymond Work Phone: [facility] Work Phone: 07-27-2021 03:36-0400 Body weight 122.[address] Mery Raymond Work Phone: [facility] Work Phone: 07-27-2021 03:20-0400 Body temperature 97.4 [degF] Dr. Mery Raymond Work Phone: [facility] Work Phone: 07-27-2021 03:20-0400 Diastolic blood pressure 92 mm[Hg] Dr. Mery Raymond Work Phone: [facility] Work Phone: 07-27-2021 03:20-0400 Heart rate 89 /min Dr. Mery Raymond Work Phone: [facility] Work Phone: 07-27-2021 03:20-0400 Respiratory rate 20 /min Dr. Mery Raymond Work Phone: [facility] Work Phone: 07-27-2021 03:20-0400 SaO2% (BldA) [Mass fraction] 94 % Dr. Mery Raymond Work Phone: [facility] Work Phone: 07-27-2021 03:20-0400 Systolic blood pressure 144 mm[Hg] Dr. Mery Raymond Work Phone: [facility] Work Phone: 07-27-2021 00:21-0400 Body height 177.[address] Mery Raymond Work Phone: [facility] Work Phone: 07-27-2021 00:21-0400 Body mass index (BMI) [Ratio] 39.6 kg/m2 Dr. Mery Raymond Work Phone: [facility] Work Phone: 07-27-2021 00:21-0400 Body weight 125.[address] Mery Raymond Work Phone: [facility] Work Phone: 07-08-2021 16:17-0400 Body temperature 96.7 [degF] Dr. Mery Raymond Work Phone: [facility] Work Phone: 07-08-2021 16:17-0400 Body weight 122.[address] Mery Raymond Work Phone: [facility] Work Phone: 07-08-2021 16:17-0400 Diastolic blood pressure 70 mm[Hg] Dr. Mery Raymond Work Phone: [facility] Work Phone: 07-08-2021 16:17-0400 Heart rate 86 /min Dr. Mery Raymond Work Phone: [facility] Work Phone: 07-08-2021 16:17-0400 Respiratory rate 16 /min Dr. Mery Raymond Work Phone: [facility] Work Phone: 07-08-2021 16:17-0400 SaO2% (BldA) [Mass fraction] 99 % Dr. Mery Raymond Work Phone: [facility] Work Phone: 07-08-2021 16:17-0400 Systolic blood pressure 120 mm[Hg] Dr. Mery Raymond Work Phone: [facility] Work Phone: 07-08-2021 16:17-0400 Body temperature 96.7 [degF] Dr. Mery Raymond Work Phone: [facility] Work Phone: 07-08-2021 16:17-0400 Body weight 122.[address] Mery Raymond Work Phone: [facility] Work Phone: 07-08-2021 16:17-0400 Diastolic blood pressure 70 mm[Hg] Dr. Mery Raymond Work Phone: [facility] Work Phone: 07-08-2021 16:17-0400 Heart rate 86 /min Dr. Mery Raymond Work Phone: [facility] Work Phone: 07-08-2021 16:17-0400 Respiratory rate 16 /min Dr. Mery Raymond Work Phone: [facility] Work Phone: 07-08-2021 16:17-0400 SaO2% (BldA) [Mass fraction] 99 % Dr. Mery Raymond Work Phone: [facility] Work Phone: 07-08-2021 16:17-0400 Systolic blood pressure 120 mm[Hg] Dr. Mery Raymond Work Phone: [facility] Work Phone: 06-10-2021 11:38-0500 Body mass index (BMI) [Ratio] 40.7 kg/m2 Dr. Mery Raymond Work Phone: [facility] Work Phone: 06-10-2021 11:38-0500 Body temperature 98.3 [degF] Dr. Mery Raymond Work Phone: [facility] Work Phone: 06-10-2021 11:38-0500 Body weight 128.[address] Mery Raymond Work Phone: [facility] Work Phone: 06-10-2021 11:38-0500 Diastolic blood pressure 76 mm[Hg] Dr. Mery Raymond Work Phone: [facility] Work Phone: 06-10-2021 11:38-0500 Heart rate 94 /min Dr. Mery Raymond Work Phone: [facility] Work Phone: 06-10-2021 11:38-0500 Respiratory rate 14 /min Dr. Mery Raymond Work Phone: [facility] Work Phone: 06-10-2021 11:38-0500 SaO2% (BldA) [Mass fraction] 96 % Dr. Mery Raymond Work Phone: [facility] Work Phone: 06-10-2021 11:38-0500 Systolic blood pressure 128 mm[Hg] Dr. Mery Raymond Work Phone: [facility] Work Phone: 06-10-2021 10:38-0500 Body mass index (BMI) [Ratio] 40.7 kg/m2 Dr. Mery Raymond Work Phone: [facility] Work Phone: 06-10-2021 10:38-0500 Body temperature 98.3 [degF] Dr. Mery Raymond Work Phone: [facility] Work Phone: 06-10-2021 10:38-0500 Body weight 128.[address] Mery Raymond Work Phone: [facility] Work Phone: 06-10-2021 10:38-0500 Diastolic blood pressure 76 mm[Hg] Dr. Mery Raymond Work Phone: [facility] Work Phone: 06-10-2021 10:38-0500 Heart rate 94 /min Dr. Mery Raymond Work Phone: [facility] Work Phone: 06-10-2021 10:38-0500 Respiratory rate 14 /min Dr. Mery Raymond Work Phone: [facility] Work Phone: 06-10-2021 10:38-0500 SaO2% (BldA) [Mass fraction] 96 % Dr. Mery Raymond Work Phone: [facility] Work Phone: 06-10-2021 10:38-0500 Systolic blood pressure 128 mm[Hg] Dr. Mery Raymond Work Phone: [facility] Work Phone: 06-08-2021 18:41-0500 Diastolic blood pressure 84 mm[Hg] Dr. Mery Raymond Work Phone: [facility] Work Phone: 06-08-2021 18:41-0500 Heart rate 84 /min Dr. Mery Raymond Work Phone: [facility] Work Phone: 06-08-2021 18:41-0500 Respiratory rate 16 /min Dr. Mery Raymond Work Phone: [facility] Work Phone: 06-08-2021 18:41-0500 Systolic blood pressure 137 mm[Hg] Dr. Mery Raymond Work Phone: [facility] Work Phone: 06-08-2021 18:16-0500 Body temperature 98.6 [degF] Dr. Mery Raymond Work Phone: [facility] Work Phone: 06-08-2021 16:35-0500 Body mass index (BMI) [Ratio] 42.6 kg/m2 Dr. Mery Raymond Work Phone: [facility] Work Phone: 06-08-2021 16:35-0500 Body weight 134.[address] Mery Raymond Work Phone: [facility] Work Phone: 06-08-2021 16:35-0500 SaO2% (BldA) [Mass fraction] 96 % Dr. Mery Raymond Work Phone: [facility] Work Phone: 05-21-2021 14:09-0500 Body temperature 98.3 [degF] Dr. Mery Raymond Work Phone: [facility] Work Phone: 05-21-2021 14:09-0500 Diastolic blood pressure 78 mm[Hg] Dr. Mery Raymond Work Phone: [facility] Work Phone: 05-21-2021 14:09-0500 Heart rate 79 /min Dr. Mery Raymond Work Phone: [facility] Work Phone: 05-21-2021 14:09-0500 Respiratory rate 20 /min Dr. Mery Raymond Work Phone: [facility] Work Phone: 05-21-2021 14:09-0500 SaO2% (BldA) [Mass fraction] 95 % Dr. Mery Raymond Work Phone: [facility] Work Phone: 05-21-2021 14:09-0500 Systolic blood pressure 176 mm[Hg] Dr. Mery Raymond Work Phone: [facility] Work Phone: 05-21-2021 05:00-0500 Body weight 139.[address] Mery Raymond Work Phone: [facility] Work Phone: 05-21-2021 02:59-0500 Body mass index (BMI) [Ratio] 43.2 kg/m2 Dr. Mery Raymond Work Phone: [facility] Work Phone: 05-19-2021 23:10-0500 Inhaled oxygen concentration 30 % Dr. Mery Raymond Work Phone: [facility] Work Phone: 05-11-2021 10:04-0500 Body mass index (BMI) [Ratio] 43.2 kg/m2 Dr. Mery Raymond Work Phone: [facility] Work Phone: 05-11-2021 10:04-0500 Body temperature 96.6 [degF] Dr. Mery Raymond Work Phone: [facility] Work Phone: 05-11-2021 10:04-0500 Body weight 136.[address] Mery Raymond Work Phone: [facility] Work Phone: 05-11-2021 10:04-0500 Diastolic blood pressure 76 mm[Hg] Dr. Mery Raymond Work Phone: [facility] Work Phone: 05-11-2021 10:04-0500 Heart rate 71 /min Dr. Mery Raymond Work Phone: [facility] Work Phone: 05-11-2021 10:04-0500 Respiratory rate 16 /min Dr. Mery Raymond Work Phone: [facility] Work Phone: 05-11-2021 10:04-0500 SaO2% (BldA) [Mass fraction] 99 % Dr. Mery Raymond Work Phone: [facility] Work Phone: 05-11-2021 10:04-0500 Systolic blood pressure 136 mm[Hg] Dr. Mery Raymond Work Phone: [facility] Work Phone: 04-28-2021 12:18-0500 Body mass index (BMI) [Ratio] 43.3 kg/m2 Dr. Mery Raymond Work Phone: [facility] Work Phone: 04-28-2021 12:18-0500 Body weight 136.[address] Mery Raymond Work Phone: [facility] Work Phone: 04-28-2021 12:18-0500 Diastolic blood pressure 77 mm[Hg] Dr. Mery Raymond Work Phone: [facility] Work Phone: 04-28-2021 12:18-0500 Heart rate 72 /min Dr. Mery Raymond Work Phone: [facility] Work Phone: 04-28-2021 12:18-0500 Respiratory rate 22 /min Dr. Mery Raymond Work Phone: [facility] Work Phone: 04-28-2021 12:18-0500 SaO2% (BldA) [Mass fraction] 96 % Dr. Mery Raymond Work Phone: [facility] Work Phone: 04-28-2021 12:18-0500 Systolic blood pressure 126 mm[Hg] Dr. Mery Raymond Work Phone: [facility] Work Phone: 04-21-2021 10:06-0500 Body mass index (BMI) [Ratio] 43.4 kg/m2 Dr. Mery Raymond Work Phone: [facility] Work Phone: 04-21-2021 10:06-0500 Body temperature 97.6 [degF] Dr. Mery Raymond Work Phone: [facility] Work Phone: 04-21-2021 10:06-0500 Body weight 137.[address] Mery Raymond Work Phone: [facility] Work Phone: 04-21-2021 10:06-0500 Diastolic blood pressure 89 mm[Hg] Dr. Mery Raymond Work Phone: [facility] Work Phone: 04-21-2021 10:06-0500 Heart rate 83 /min Dr. Mery Raymond Work Phone: [facility] Work Phone: 04-21-2021 10:06-0500 Respiratory rate 18 /min Dr. Mery Raymond Work Phone: [facility] Work Phone: 04-21-2021 10:06-0500 SaO2% (BldA) [Mass fraction] 95 % Dr. Mery Raymond Work Phone: [facility] Work Phone: 04-21-2021 10:06-0500 Systolic blood pressure 165 mm[Hg] Dr. Mery Raymond Work Phone: [facility] Work Phone: Encounters Encounter Date Encounter Type Care Provider Facility Start: 09-18-2024 End: 09-18-2024 Office outpatient new 45 minutes Delmy Burciaga PA-C Work Phone: Urology Comment on above: BPH with obstruction /lower urinary tract symptoms (Primary Dx); Urinary frequency; Dysuria; Prostate cancer screening Start: 09-18-2024 End: 09-18-2024 ambulatory DELMY BURCIAGA Facility:[facility] Start: 09-16-2024 End: 09-16-[address] Hank Negrete MD Work Phone: [facility] Work Phone: Start: 09-16-2024 End: 09-16-2024 Dr. Robb Hua MD -[facility] Work Phone: Start: 09-04-2024 End: 09-04-2024 Louie Gonzales DO -Endoscopy Work Phone: Start: 09-04-2024 End: 09-04-[address] Hank Negrete MD Work Phone: [facility] Work Phone: Start: 08-15-2024 End: 08-15-2024 Stephanie HOBBS -[facility] Work Phone: Start: 08-15-2024 End: 08-15-2024 ambulatory Stephanie HOBBS Facility:[facility] Start: 08-12-2024 Dr. Chey tyler MD -[facility] Work Phone: Start: 08-11-2024 Dr. Chey tyler MD -[facility] Work Phone: Start: 08-10-2024 Dr. Chey tyler MD -[facility] Work Phone: Start: 08-10-2024 ambulatory Ty Rocha Facility:[facility] Start: 08-10-2024 Dr. Ty Rocha MD -[facility] Start: 08-09-2024 End: 08-09-2024 ambulatory Robb Hua Facility:[facility] Start: 08-09-2024 End: 08-09-2024 Dr. Robb Hua MD -[facility] Work Phone: Start: 08-09-2024 End: 08-12-2024 Evaluation and management of inpatient Chey Kearney Facility:[facility] Start: 08-09-2024 End: 08-12-2024 Dr. Chey Kearney MD -Progressive Care Unit Work Phone: Start: 08-09-2024 ambulatory Chey Silverman Facility :[facility] Start: 08-01-2024 End: 08-01-2024 Ariana Juarez FARM OPERATOR-C -[facility] Work Phone: Start: 08-01-2024 End: 08-01-2024 ambulatory Ariana Juarez NP Facility:[facility] Start: 07-22-2024 End: 07-22-2024 Dr. Adrian Villalta MD -[facility] Work Phone: Start: 07-22-2024 End: 07-22-2024 ambulatory Hank Negrete Facility:[facility] Start: 06-21-2024 End: 06-21-[address] Hank Negrete MD Work Phone: [facility] Work Phone: Start: 06-21-2024 End: 06-21-2024 Judie HOBBS -[facility] Work Phone: Start: 06-21-2024 End: 06-21-2024 ambulatory Judie Crump Facility:[facility] Start: 06-17-2024 End: 06-17-2024 ambulatory Hank Negrete Facility:[facility] Start: 06-17-2024 End: 06-17-2024 Dr. Robb Hua MD -[facility] Work Phone: Start: 06-14-2024 End: 06-14-2024 Judie HOBBS -[facility] Work Phone: Start: 06-14-2024 End: 06-14-2024 ambulatory Judie Crump Facility:[facility] Start: 05-08-2024 ambulatory Hank Negrete Facility:[facility] Start: 05-03-2024 End: 05-03-2024 Ariana Juarez FARM OPERATOR-C -[facility] Work Phone: Start: 05-03-2024 End: 05-03-2024 ambulatory Ariana Juarez NP Facility:[facility] Start: 04-25-2024 End: 04-25-2024 Dr. Vishnu Urias MD -[facility] Work Phone: Start: 04-25-2024 End: 04-25-2024 ambulatory Vishnu Urias Facility:[facility] Start: 04-16-2024 ambulatory Africa Wei Facili ty:[facility] Start: 04-16-2024 Dr. Antonio Garcia DO -[facility] Start: 04-09-2024 End: 04-09-2024 FARM OPERATOR Africa Wei -Pulmonary Services/Neurology Work Phone: Start: 04-09-2024 End: 04-09-2024 ambulatory Africa Wei Facility:[facility] Start: 03-18-2024 End: 03-18-2024 ambulatory Robb Hua Facility:[facility] Start: 03-18-2024 End: 03-18-2024 Dr. Robb Hua MD -[facility] Work Phone: Start: 03-15-2024 End: 03-15-2024 FARM OPERATOR Africa Wei [facility] Work Phone: Start: 03-15-2024 End: 03-15-2024 ambulatory Africa Wei Facility:[facility] Start: 02-21-2024 ambulatory Yazmin Jang Facility:[facility] Start: 01-25-2024 End: 01-25-2024 ambulatory Stephanie HOBBS Facility:[facility] Start: 01-16-2024 [facility] Start: 01-15-2024 End: 01-15-2024 ambulatory [facility] Facility:[facility] Start: 12-22-2023 ambulatory Antonio Garcia Facility:[facility] Start: 12-18-2023 End: 12-18-2023 ambulatory Robb Melita Facility:[facility] Start: 12-15-2023 End: 12-15-2023 ambulatory Judie Crmup Facility:[facility] Start: 12-15-2023 End: 12-15-2023 [facility] Start: 12-14-2023 End: 12-14-2023 ambulatory Ariana Juarez NP Facility:[facility] Start: 12-12-2023 End: 12-12-2023 ambulatory Vishnu Urias Facility:[facility] Start: 12-07-2023 End: 12-07-2023 ambulatory Mery Raymond Facility:[facility] Start: 11-28-2023 End: 11-28-2023 ambulatory Mery Raymond Facility:[facility] Start: 11-28-2023 End: 11-28-2023 ambulatory Robb Melita Facility:[facility] Start: 10-25-2023 End: 10-25-2023 Emergency department patient visit Marco Lara Facility:[facility] Start: 10-12-2023 End: 10-12-2023 Emergency department patient visit Lamine Rollins Facility:[facility] Start: 08-11-2023 End: 08-11-2023 Emergency department patient visit Dr. Mery Raymond Work Phone: [facility] Work Phone: Start: 08-11-2023 End: 08-11-2023 Dr. Mery Raymond Work Phone: [facility]-Emergency Department Work Phone: Start: 08-08-2023 End: 08-08-2023 Dr. Mery Raymond Work Phone: [facility] Endocrin[facility] Work Phone: Start: 07-31-2023 Dr. Mery Raymond Work Phone: [facility] Work Phone: Start: 07-30-2023 Dr. Mery Raymond Work Phone: [facility] Work Phone: Start: 07-29-2023 Dr. Mery Raymond Work Phone: [facility] Work Phone: Start: 07-28-2023 End: 07-31-2023 Evaluation and management of inpatient Dr. Mery Raymond Work Phone: [facility] Work Phone: Start: 07-28-2023 End: 07-31-2023 Dr. Mery Raymond Work Phone: [facility]-Progressive Care Unit Work Phone: Start: 07-26-2023 End: 07-26-2023 Dr. Mery Raymond Work Phone: [facility] Work Phone: Start: 07-20-2023 End: 07-20-2023 Emergency department patient visit Dr. Mery Raymond Work Phone: [facility] Work Phone: Start: 07-20-2023 End: 07-20-2023 Dr. Mery Raymond Work Phone: [facility]-Emergency Department Work Phone: Start: 07-19-2023 End: 07-19-2023 Dr. Mery Raymond Work Phone: [facility] Work Phone: Start: 07-13-2023 End: 07-13-[address] Mery Raymond Work Phone: [facility] Work Phone: Start: 07-13-2023 End: 07-13-2023 Dr. Mery Raymond Work Phone: [facility]-Endoscopy Work Phone: Start: 07-12-2023 End: 07-12-2023 Dr. Mery Raymond Work Phone: [facility] Work Phone: Start: 06-27-2023 End: 06-27-2023 Dr. Mery Raymond Work Phone: [facility] Work Phone: Start: 06-20-2023 End: 06-20-2023 Dr. Mery Raymond Work Phone: [facility] Work Phone: Start: 06-20-2023 Dr. Mery Raymond Work Phone: [facility] Start: 06-20-2023 End: 06-20-2023 Dr. Mery Raymond Work Phone: [facility] Work Phone: Start: 06-19-2023 End: 06-20-[address] Mery Raymond Work Phone: [facility] Work Phone: Start: 06-19-2023 End: 06-20-2023 Dr. Mery Raymond Work Phone: [facility]-Progressive Care Unit Work Phone: Start: 06-12-2023 End: 06-12-2023 Dr. Mery Raymond Work Phone: [facility] Work Phone: Start: 06-08-2023 End: 06-08-[address] Mery Raymond Work Phone: [facility] Work Phone: Start: 06-08-2023 End: 06-08-2023 Dr. Mery Raymond Work Phone: [facility]-Sleep Lab Work Phone: Start: 06-07-2023 End: 06-08-[address] Mery Raymond Work Phone: [facility] Work Phone: Start: 06-07-2023 End: 06-08-2023 Dr. Mery Raymond Work Phone: [facility]-Progressive Care Unit Work Phone: Start: 06-07-2023 End: 06-07-2023 Emergency department patient visit Dr. Mery Raymond Work Phone: [facility] Work Phone: Start: 06-07-2023 End: 06-07-2023 Dr. Mery Raymond Work Phone: [facility]-Emergency Department Work Phone: Start: 05-31-2023 End: 05-31-2023 Dr. Mery Raymond Work Phone: [facility]-Laboratory, [facility] Start: 05-31-2023 End: 05-31-2023 Dr. Mery Raymond Work Phone: [facility] Work Phone: Start: 05-30-2023 End: 05-30-2023 Dr. Mery Raymond Work Phone: [facility]-Pulmonary Medicine [facility] Work Phone: Start: 05-30-2023 End: 05-30-2023 Dr. Mery Raymond Work Phone: [facility] Work Phone: Start: 05-10-2023 Dr. Mery Raymond Work Phone: [facility] Work Phone: Start: 04-29-2023 Dr. Mery Raymond Work Phone: [facility] Work Phone: Start: 04-28-2023 Dr. Mery Raymond Work Phone: [facility] Work Phone: Start: 04-27-2023 Dr. Mery Raymond Work Phone: [facility] Work Phone: Start: 04-26-2023 End: 04-29-[address] Mery Raymond Work Phone: [facility] Work Phone: Start: 04-26-2023 End: 04-29-2023 Dr. Mery Raymond Work Phone: [facility]-Progressive Care Unit Work Phone: Start: 04-26-2023 End: 04-26-2023 Emergency department patient visit Dr. Mery Raymond Work Phone: [facility] Work Phone: Start: 04-26-2023 End: 04-26-2023 Dr. Mery Raymond Work Phone: [facility]-Emergency Department Work Phone: Start: 04-18-2023 End: 04-18-2023 Dr. Mery Raymond Work Phone: [facility] Gastroenterology Work Phone: Start: 04-14-2023 End: 04-14-[address] Mery Raymond Work Phone: [facility] Work Phone: Start: 04-14-2023 End: 04-14-2023 Dr. Mery Raymond Work Phone: [facility] Internal Medicine Work Phone: Start: 03-29-2023 End: 05-05-[address] Mery Raymond Work Phone: [facility] Work Phone: Start: 03-29-2023 End: 05-05-2023 Dr. Mery Raymond Work Phone: [facility] Work Phone: Start: 03-18-2023 Dr. Mery Raymond Work Phone: [facility] Work Phone: Start: 03-17-2023 Dr. Mery Raymond Work Phone: [facility] Start: 03-17-2023 Dr. Mery Raymond Work Phone: [facility] Work Phone: Start: 03-16-2023 Dr. Mery Raymond Work Phone: [facility] Work Phone: Start: 03-15-2023 Dr. Mery Raymond Work Phone: [facility] Start: 03-14-2023 Dr. Mery Raymond Work Phone: [facility] Start: 03-14-2023 End: 03-14-2023 Dr. Mery Raymond Work Phone: [facility] Work Phone: Start: 03-14-2023 Dr. Mery Raymond Work Phone: [facility] Work Phone: Start: 03-13-2023 Evaluation and management of inpatient Dr. Mery Raymond Work Phone: [facility] Work Phone: Start: 03-13-2023 End: 03-18-2023 Dr. Mery Raymond Work Phone: [facility]-Intensive Care Unit Work Phone: Start: 03-07-2023 End: 03-07-2023 Dr. Mery Raymond Work Phone: [facility] Endocrinology Work Phone: Start: 03-03-2023 Dr. Mery Rayomnd Work Phone: [facility] Work Phone: Start: 03-02-2023 Dr. Mery Raymond Work Phone: [facility] Start: 03-02-2023 Dr. Mery Raymond Work Phone: [facility] Work Phone: Start: 03-01-2023 Dr. Mery Raymond Work Phone: [facility] Work Phone: Start: 03-01-2023 Dr. Mery Raymond Work Phone: [facility] Start: 02-28-2023 Dr. Mery Raymond Work Phone: [facility] Work Phone: Start: 02-28-2023 Dr. Mery Raymond Work Phone: [facility] Start: 02-28-2023 End: 02-28-2023 Dr. Mery Raymond Work Phone: [facility] Work Phone: Start: 02-27-2023 Dr. Mery Raymond Work Phone: [facility] Start: 02-26-2023 End: 03-03-2023 Evaluation and management of inpatient Dr. Mery Raymond Work Phone: [facility] Work Phone: Start: 02-26-2023 End: 03-03-2023 [facility]-Progressive Care Unit Work Phone: Start: 11-07-2022 [facility] Start: 10-31-2022 [facility] Start: 10-27-2022 MD Mery GONSALES [facility] Work Phone: Start: 10-26-2022 MD Mery GONSALES [facility] Work Phone: Start: 10-25-2022 MD Mery GONSALES [facility] Work Phone: Start: 10-24-2022 MD Mery GONSALES [facility] Work Phone: Start: 10-23-2022 MD Mery GONSALES [facility] Start: 10-23-2022 MD Mery GONSALES [facility] Work Phone: Start: 10-22-2022 MD Mery GONSALES [facility] Start: 10-22-2022 MD Mery GONSALES [facility] Work Phone: Start: 10-21-2022 MD Mery GONSALES [facility] Start: 10-21-2022 End: 10-27-2022 Evaluation and management of inpatient MD Mery GONSALES [facility] Work Phone: Start: 10-21-2022 End: 10-27-2022 MD Mery GONSALES [facility]-Progressive Care Unit Work Phone: Start: 10-20-2022 MD Mery GONSALES [facility] Start: 10-18-2022 MD Mery GONSALES [facility] Work Phone: Start: 10-17-2022 Evaluation and management of inpatient MD Mery GONSALES [facility] Surgical 3 Work Phone: Start: 10-17-2022 End: 10-18-2022 observation encounter MD Mery Raymond [facility] Work Phone: Start: 10-17-2022 End: 10-18-2022 MD Mery GONSALES [facility] 3 Work Phone: Start: 09-06-2022 End: 09-06-2022 ambulatory MD Mery GONSALES [facility] Work Phone: Start: 09-06-2022 Patient encounter procedure MD Mery GONSALES [facility]Laboratory, [facility] Start: 09-06-2022 End: 09-06-2022 MD Mery GONSALES [facility] Start: 09-06-2022 End: 09-06-2022 Patient encounter procedure MD Mery GONSALES [facility] Work Phone: Start: 09-06-2022 End: 09-06-2022 MD Mery GONSALES [facility] Work Phone: Start: 09-06-2022 End: 09-06-2022 Patient encounter procedure MD Mery GONSALES [facility] Work Phone: Start: 09-06-2022 End: 09-06-2022 MD Mery GONSALES [facility] Work Phone: Start: 08-18-2022 End: 08-18-2022 Patient encounter procedure MD Mery GONSALES [facility] Work Phone: Start: 08-18-2022 End: 08-18-2022 MD Mery GONSALES [facility] Work Phone: Start: 07-07-2022 End: 07-07-2022 ambulatory MD Mery GONSALES [facility] Work Phone: Start: 07-07-2022 End: 07-07-2022 Patient encounter procedure MD Mery GONSALES [facility]-Laboratory Work Phone: Start: 07-07-2022 End: 07-07-2022 MD Mery GONSALES [facility]-Laboratory Start: 06-07-2022 End: 06-07-2022 ambulatory MD Mery Raymond [facility] Work Phone: Start: 06-07-2022 End: 06-07-2022 MD Mery Raymond [facility] Start: 05-24-2022 End: 05-24-2022 ambulatory MD Mery Pauljocelyn [facility] Work Phone: Start: 05-24-2022 End: 05-24-2022 MD Mery Raymond [facility] Endocrinology Start: 05-20-2022 End: 05-20-2022 [facility] Start: 05-20-2022 End: 05-20-2022 [facility] Start: 05-20-2022 End: 05-20-2022 [facility] Start: 05-19-2022 End: 05-19-2022 [facility] Start: 05-19-2022 End: 05-19-2022 [facility] Start: 05-19-2022 End: 05-19-2022 [facility] Start: 05-10-2022 End: 05-10-2022 ambulatory MD Mery Raymond [facility] Work Phone: Start: 05-10-2022 End: 05-10-2022 [facility] Start: 04-14-2022 End: 04-14-2022 [facility] Start: 02-24-2022 End: 02-24-2022 MD Mery Pauljocelyn [facility] Endocrinology Start: 02-16-2022 End: 02-16-2022 ambulatory MD Mery Pauljocelyn [facility] Work Phone: Start: 02-16-2022 End: 02-16-2022 Patient encounter procedure MD Mery Raymond [facility] Start: 02-16-2022 End: 02-16-2022 MD Mery Pauljocelyn [facility] Start: 02-16-2022 End: 02-16-2022 Encounter for general adult medical examination without abnormal findings MD Mery Pauljocelyn [facility] Internal Medicine Start: 02-16-2022 End: 02-16-2022 [facility] Start: 02-16-2022 End: 02-16-[address] [facility] Internal Medicine Start: 01-17-2022 End: 01-17-2022 Patient encounter procedure MD Mery Pauljocelyn [facility] Start: 01-17-2022 End: 01-17-2022 [facility] Start: 11-24-2021 End: 11-24-[address] Mery Raymond Work Phone: [facility] Out Start: 11-24-2021 End: 11-24-[address] Mery Raymond Work Phone: [facility]ocrinology Start: 11-18-2021 Non-patient / Non-visit Dr. Mery Raymond Work Phone: [facility] Start: 2021 End: [address] Mery Raymond Work Phone: [facility] Start: 2021 End: [address] Mery Raymond Work Phone: [facility] Internal Medicine Start: 10-28-2021 End: 10-28-[address] Mery Raymond Work Phone: [facility] Start: 10-22-2021 End: 10-22-[address] Mery Raymond Work Phone: [facility] Start: 10-15-2021 Non-patient / Non-visit Dr. Mery Raymond Work Phone: [facility] Start: 10-14-2021 End: 10-15-2021 Non-patient / Non-visit Dr. Mery Raymond Work Phone: [facility] Start: 10-13-2021 Non-patient / Non-visit Dr. Mery Raymond Work Phone: [facility] Start: 10-13-2021 Non-patient / Non-visit Dr. Mery Raymond Work Phone: [facility] Start: 10-12-2021 End: 10-15-2021 Non-patient / Non-visit Dr. Mery Raymond Work Phone: [facility] Start: 10-11-2021 Non-patient / Non-visit Dr. Mery Raymond Work Phone: [facility] Start: 10-11-2021 Non-patient / Non-visit Dr. Mery Raymond Work Phone: [facility] Start: 10-10-2021 End: 10-15-2021 Evaluation and management of inpatient Dr. Mery Raymond Work Phone: [facility]Progressive Care Unit Start: 10-05-2021 End: 10-05-[address] Mery Magana Phone: [facility]Labor[facility] Start: 10-05-2021 End: 10-05-[address] Mery Magana Phone: [facility] Start: 09-01-2021 End: 09-01-[address] Mery Raymond Work Phone: [facility] Internal Medicine Start: 08-23-2021 End: 08-23-2021 Emergency department patient visit Dr. Mery Raymond Work Phone: [facility]-Emergency Department Start: 08-23-2021 End: 08-23-[address] Mery Raymond Work Phone: [facility] Start: 07-30-2021 Non-patient / Non-visit Dr. Mery Raymond Work Phone: [facility] Start: 07-29-2021 Non-patient / Non-visit Dr. Mery Raymond Work Phone: [facility] Start: 07-28-2021 Non-patient / Non-visit Dr. Mery Raymond Work Phone: [facility] Start: 07-27-2021 Non-patient / Non-visit Dr. Mery Raymond Work Phone: [facility] Start: 07-27-2021 End: 07-30-2021 Evaluation and management of inpatient Dr. Mery Raymond Work Phone: [facility]Medical Surgical 3 Start: 07-08-2021 End: 07-08-[address] Mery Magana Phone: [facility] Internal Medicine Start: 06-23-2021 End: 06-23-[address] Mery Raymond Work Phone: [facility] Start: 06-10-2021 End: 06-10-[address] Mery Raymond Work Phone: [facility] Internal Medicine Start: 06-08-2021 End: 06-08-2021 Emergency department patient visit Dr. Mery Raymond Work Phone: [facility]-Emergency Department Start: 05-21-2021 Non-patient / Non-visit Dr. Mery Raymond Work Phone: [facility] Start: 05-20-2021 Non-patient / Non-visit Dr. Mery Raymond Work Phone: [facility] Start: 05-19-2021 Non-patient / Non-visit Dr. Mery Raymond Work Phone: [facility] Start: 05-19-2021 Non-patient / Non-visit Dr. Mery Raymond Work Phone: [facility] Start: 05-18-2021 End: 05-21-2021 Evaluation and management of inpatient Dr. Mery Raymond Work Phone: [facility] Start: 05-11-2021 End: 05-11-[address] Mery Raymond Work Phone: [facility] Start: 05-11-2021 End: 05-11-[address] Mery Raymond Work Phone: [facility] Start: 04-28-2021 End: 04-28-[address] Mery Raymond Work Phone: [facility] Start: 04-21-2021 End: 04-21-[address] Mery Raymond Work Phone: [facility]-Pulmonary Medicine [facility] Start: 10-27-[address] Mery Raymond Work Phone: [facility] Start: 01-02-2018 Patient encounter EDUARDO Mcpherson Facility:[id number] Start: 11-21-2017 Patient encounter EDUARDO PURVIS Z Facility:[id number] Start: 11-14-2017 Patient encounter EDUARDO PURVIS Z Facility:[id number] Start: 11-06-2017 End: 11-07-2017 Evaluation and management of inpatient EDUARDO ALMEIDA Facility:[facility] Start: 10-25-2017 Patient encounter EDUARDO PURVIS Z Facility:[facility] Start: 10-10-2017 Patient encounter EDUARDO PURVIS Z Facility:[id number] Start: 08-22-2017 Patient encounter EDUARDO PURVIS Z Facility:[id number] Start: 08-07-2017 End: 08-07-2017 Patient encounter EDUARDO ALMEIDA Facility:[facility] Start: 08-07-2017 Patient encounter Liam Haq Facility:[facility] Start: 07-31-2017 Patient encounter EDUARDO Mcpherson Facility:[facility] Start: 06-15-2017 End: 06-15-2017 Patient encounter Eloy Beth Facility:[facility] Start: 06-15-2017 Emergency department visit limited/minor prob EDUARDO ALMEIDA [facility] Start: 06-15-2017 End: 06-15-2017 Patient encounter EDUARDO ALMEIDA Facility:[facility] Start: 06-12-2017 Patient encounter EDUARDO PURVIS Z Facility:[facility] Start: 06-12-2017 Patient encounter EDUARDO PURVIS Z Facility:[facility] Procedures Date Procedure Procedure Detail Performing Clinician Start: 09-04-[address] Hank rosenberg MD Work Phone: Start: 08-12-2024 Blood count smear mcrscp w/mnl difrntl wbc count Dr. Hank Negrete MD Work Phone: Start: 08-12-[address] Hank Negrete MD Work Phone: Start: 08-12-2024 Mean corpuscular hemoglobin concentration determination Dr. Hank Negrete MD Work Phone: Start: 08-12-2024 Nucleated red blood cell count procedure Dr. Hank Negrete MD Work Phone: Start: 08-12-2024 Platelet mean volume determination Dr. Anabel Negrete MD Work Phone: Start: 08-09-2024 Plain chest X-ray Dr. Hank Negrete MD Work Phone: Start: 06-21-[address] Hank rosenberg MD Work Phone: Start: 04-09-2024 CT of chest without contrast Dr. Hank atwood MD Work Phone: Start: 08-11-2023 Plain chest X-ray Dr. Mery Raymond Work Phone: Start: 08-11-2023 Dr. Mery Raymond Work Phone: Start: 07-28-2023 CT angiography of chest with contrast Dr. Mery Raymond Work Phone: Start: 07-28-2023 Plain chest X-ray Dr. Mery Raymond Work Phone: Start: 07-13-[address] Mery Raymond Work Phone: Start: 06-20-2023 Plain chest X-ray Dr. Mery Raymond Work Phone: Start: 06-07-2023 Radiologic examination of knee Dr. Derek Raymond Work Phone: Start: 06-07-2023 Plain chest X-ray Dr. Mery Raymond Work Phone: Start: 04-28-2023 Plain chest X-ray Dr. Mery Raymond Work Phone: Start: 04-28-2023 Plain x-ray of elbow Dr. Mery Raymond Work Phone: Start: 04-26-2023 Plain X-ray of shoulder Dr. Mery Raymond Work Phone: Start: 04-26-2023 Radiologic examination of knee Dr. Derek Raymond Work Phone: Start: 04-26-2023 X-ray of chest posteroanterior view Dr. Mery Raymond Work Phone: Start: 04-26-2023 CT of head without contrast Dr. Pravin Raymond Work Phone: Start: 04-26-2023 Plain chest X-ray Dr. Mery Raymond Work Phone: Start: 03-18-[address] Mery Raymond Work Phone: Start: 03-17-[address] Mery Raymond Work Phone: Start: 03-14-[address] Mery Raymond Work Phone: Start: 03-13-2023 CT of abdomen and pelvis without contrast Dr. Mery Raymond Work Phone: Start: 03-13-2023 Measurement of occult blood in stool specimen using immunoassay Dr. Mery Raymond Work Phone: Start: 03-01-[address] Mery Raymond Work Phone: Start: 02-28-[address] Mery Raymond Work Phone: Start: 02-26-2023 Plain chest X-ray Start: 10-21-2022 History of placement of stent for coronary artery disease Start: 10-21-2022 Cardiovascular stress test using pharmacologic stress agent MD Mery GONSALES Start: 10-21-2022 CT angiography of chest with contrast MD Mery GONSALES Start: 10-20-2022 Plain chest X-ray MD Mery GONSALES Start: 10-17-2022 Plain x-ray of elbow MD Mery GONSALES Start: 05-20-2022 Plain chest X-ray MD Mery Raymond Start: 01-17-2022 Single photon emission computed tomography of parathyroid MD Mery Raymond Start: 10-28-2021 Dual energy X-ray absorptiometry Dr. Kevin Raymond Work Phone: Start: 10-28-2021 US scan of thyroid Dr. Mery Raymond Work Phone: Start: 10-26-2021 History of placement of stent for coronary artery disease MD Mery GONSALES Start: 10-12-2021 History of placement of stent for coronary artery disease History of coronary artery stent placement Dr. Mery Raymond Work Phone: Start: 10-11-2021 Cardiovascular stress test using pharmacologic stress agent Dr. Mery Raymond Work Phone: Start: 10-10-2021 CT of head without contrast Dr. Pravin Raymond Work Phone: Start: 10-10-2021 Plain chest X-ray Dr. Mery Ryamond Work Phone: Start: 07-30-2021 End: 07-30-[address] Mery Raymond Work Phone: Start: 06-23-2021 Plain X-ray of shoulder Dr. Mery Raymond Work Phone: Start: 06-23-2021 Radiologic examination of knee Dr. Derek Raymond Work Phone: Start: 06-23-2021 X-ray of cervical spine Dr. Mery Raymond Work Phone: Start: 06-08-2021 Plain chest X-ray Dr. Mery Raymond Work Phone: Start: 05-19-2021 End: 05-19-2021 Legionella pneumophila antigen assay Dr. Mery Raymond Work Phone: Start: 05-19-2021 Streptococcus pneumoniae Antigen (M Dr. Mery Raymond Work Phone: Start: 05-19-2021 MRI of brain without contrast Dr. Tony Raymond Work Phone: Start: 05-19-2021 Plain chest X-ray Dr. Mery Raymond Work Phone: Start: 05-18-2021 Plain chest X-ray Dr. Mery Raymond Work Phone: Start: 05-18-2021 CT angiography of head and neck Dr. Corky Raymond Work Phone: Start: 05-18-2021 CT of head without contrast Dr. Pravin Raymond Work Phone: Start: 05-18-2021 SARS-CoV-2 Antigen (Rapid) Dr. Mery Raymond Work Phone: Start: 11-06-2017 Computer Assisted Procedure of Head and Neck Region, With Computerized Tomography EDUARDO ALMEIDA Start: 11-06-2017 Drainage of Right Frontal Sinus with Drainage Device, Via Natural or Artificial Opening Endoscopic EDUARDO ALMEIDA Start: 11-06-2017 Excision of Left Maxillary Sinus, Via Natural or Artificial Opening Endoscopic EDUARDO ALMEIDA Start: 11-06-2017 Excision of Left Sphenoid Sinus, Via Natural or Artificial Opening Endoscopic EDUARDO ALMEIDA Start: 11-06-2017 Excision of Nasal Septum, Via Natural or Artificial Opening Endoscopic EDUARDO ALMEIDA Start: 11-06-2017 Excision of Nasal Turbinate, Via Natural or Artificial Opening Endoscopic EDUARDO ALMEIDA Start: 11-06-2017 Excision of Right Maxillary Sinus, Via Natural or Artificial Opening Endoscopic EDUARDO ALMEIDA Start: 11-06-2017 Excision of Right Sphenoid Sinus, Via Natural or Artificial Opening Endoscopic EDUARDO ALMEIDA Start: 11-06-2017 Resection of Left Ethmoid Sinus, Via Natural or Artificial Opening Endoscopic EDUARDO ALMEIDA Start: 11-06-2017 Resection of Right Ethmoid Sinus, Via Natural or Artificial Opening Endoscopic EDUARDO ALMEIDA Start: 08-07-2017 Anesthesia nose & accessory sinuses nos EDUARDO ALMEIDA Start: 08-07-2017 Nasal/sinus ndsc surg w/bx polypect/dbrdmt spx EDUARDO ALMEIDA Start: 05-11-2016 History of placement of stent for coronary artery disease History of coronary artery stent placement Dr. Mery Raymond Work Phone: H/O: surgery History of intes tinal surgery Dr. Mery Raymond Work Phone: H/O: surgery History of eye surgery Dr. Mery Raymond Work Phone: History of appendectomy History of appendectomy Dr. Mery Raymond Work Phone: History of operative procedure on knee History of knee surgery Dr. Mery Raymond Work Phone: History of tonsillectomy History of tonsillectomy and adenoidectomy Dr. Mery Raymond Work Phone: SARS-CoV-2 & FLU Antigen (Rapid) Dr. Mery Raymond Work Phone: Viral antigen assay Dr. Corky Raymond Work Phone: Viral antigen assay MD Derek Raymond Plan of Treatment Date Care Activity Detail Author Start: 02-16-2027 Pneumococcal Vaccine : 50+ (3 of 3 - PCV20 or PCV21) Pneumococcal Vaccine: 50+ (3 of 3 - PCV20 or PCV21) [facility] Start: 12-09-2024 Influenza vaccination Influenz a Vaccine (Season Ended) [facility] Start: 11-13-2024 End: 11-13-2024 Patient encounter procedure 11/13/2024 1:00 PM EDT Office Visit Urology [address] [address] Delmy Burciaga PA-C [address] [address] follow up Urology Comment on above: follow up Start: 11-08-2024 ambulatory Ambulatory Facility:[facility] Start: 09-18-2024 End: 01-28-2025 Bacteria identified in Urine by Culture BACTERIAL CULTURE, URINE Microbiology Routine BPH with obstruction/lower urinary tract symptoms Expected: 09/18/2024 (Approximate), Expires: 01/28/2025 [facility] Comment on above: Expected: 09/18/2024 (Approximate), Expires: 01/28/2025 Start: 09-18-2024 End: 04-23-2025 Prostate specific Ag [Mass/volume] in Serum or Plasma PROSTATE-SPECIFIC ANTIGEN DIAGNOSTIC Lab Routine Prostate cancer screening Expected: 09/18/2024 (Approximate), Expires: 04/23/2025 [facility] Work Phone: Comment on above: Expected: 09/18/2024 (Approximate), Expires: 04/23/2025 Start: 09-04-2024 Patient discharge [facility] Start: 08-12-2024 Patient discharge [facility] Start: 08-11-2024 Patient referral to dietitian [facility] Start: 08-10-2024 Dual pressure sponta neous ventilation support [facility] Start: 08-10-2024 [facility] Start: 08-09-2024 Dual pressure sponta neous ventilation support [facility] Start: 08-09-2024 Oxygen therapy [facility] Start: 08-09-2024 Speech therapy assessment [facility] Start: 08-09-2024 Following clinical p athway protocol [facility] Start: 08-09-2024 Care regimes management [facility] Start: 08-09-2024 Notification of physician [facility] Start: 08-09-2024 Provision of activit y privileges [facility] Start: 08-09-2024 Assessment of risk o f venous thromboembolism [facility] Start: 08-09-2024 Insertion of cathete r into peripheral vein [facility] Start: 08-09-2024 Measuring intake and output [facility] Start: 08-09-2024 Providing care accor ding to standard [facility] Start: 08-09-2024 Referral to occupati onal therapist [facility] Start: 08-09-2024 Referral to service [facility] Start: 08-09-2024 End: 08-09-2024 [facility] Start: 08-09-2024 Following clinical p athway protocol [facility] Start: 08-09-2024 Admission procedure [facility] Start: 08-09-2024 End: 08-09-2024 [facility] Start: 04-10-2024 Advance Directive Discussion Advance Directive Discussion [facility] Start: 04-10-2024 Medicare Advantage A nnual Wellness Visit Medicare Advantage Annual Wellness Visit [facility] Start: 12-10-2023 Covid-19 Vaccine () Covid-19 Vaccine () [facility] Start: 08-11-2023 End: 08-11-2023 [facility] Start: 07-31-2023 Patient discharge [facility] Start: 07-29-2023 Care regimes management [facility] Start: 07-29-2023 Notification of physician [facility] Start: 07-29-2023 [facility] Start: 07-29-2023 Referral to service [facility] Start: 07-29-2023 End: 07-29-2023 [address]erral [address] [facility] Start: 07-29-2023 Referral to occupati onal therapist [facility] Start: 07-28-2023 Following clinical p athway protocol [facility] Start: 07-28-2023 Assessment of risk o f venous thromboembolism [facility] Start: 07-28-2023 Insertion of cathete r into peripheral vein [facility] Start: 07-28-2023 Measuring intake and output [facility] Start: 07-28-2023 Providing care accor ding to [facility] Start: 07-28-2023 [facility] Start: 07-28-2023 Verification routine [facility] Start: 07-28-2023 Admission procedure [facility] Start: 07-28-2023 Hospital admission, emergency, from emergency room, medical nature [facility] Start: 07-28-2023 Continuous pulse oximetry [facility] Start: 07-28-2023 Dual pressure sponta neous ventilation support [facility] Start: 07-28-2023 Patient referral to dietitian [facility] Start: 07-13-2023 Egd transoral biopsy single/multiple [facility] Start: 07-13-2023 Egd transoral contro l bleeding any method [facility] Start: 07-13-2023 Patient discharge [facility] Start: 06-20-2023 Patient discharge [facility] Start: 06-20-2023 Following clinical p athway protocol [facility] Start: 06-20-2023 Referral to occupati onal therapist [facility] Start: 06-20-2023 Referral to service [facility] Start: 06-20-2023 Referral to service [facility] Start: 06-20-2023 Inhalation therapy procedure [facility] Start: 06-19-2023 Consultation [facility] Start: 06-19-2023 Oxygen therapy [facility] Start: 06-19-2023 Following clinical p athway protocol [facility] Start: 06-19-2023 Elevation of head of bed [facility] Start: 06-19-2023 Admission procedure [facility] Start: 06-19-2023 Bedrest [facility] Start: 06-19-2023 Taking patient vital signs [facility] Start: 06-19-2023 Wound care [facility] Start: 06-19-2023 [facility] Start: 06-19-2023 Consultation [facility] Start: 06-19-2023 Patient referral to [facility] Start: 06-08-2023 Patient discharge [facility] Start: 06-08-2023 Following clinical p athway protocol [facility] Start: 06-08-2023 Dual pressure sponta neous ventilation support [facility] Start: 06-07-2023 Application of elast ic bandage [facility] Start: 06-07-2023 Application of ice c ollar, cap or bag [facility] Start: 06-07-2023 Assessment of risk o f venous thromboembolism [facility] Start: 06-07-2023 Care regimes management [facility] Start: 06-07-2023 Catheterization of vein [facility] Start: 06-07-2023 Incentive spirometry [facility] Start: 06-07-2023 Insertion of cathete r into peripheral vein [facility] Start: 06-07-2023 Measuring intake and output [facility] Start: 06-07-2023 Notification of physician [facility] Start: 06-07-2023 Providing care accor ding to standard [facility] Start: 06-07-2023 Provision of activit y privileges [facility] Start: 06-07-2023 Referral to occupati onal therapist [facility] Start: 06-07-2023 Referral to service [facility] Start: 06-07-2023 [facility] Start: 06-07-2023 Verification routine [facility] Start: 06-07-2023 Admission procedure [facility] Start: 06-07-2023 Hospital admission, emergency, from emergency room, medical nature [facility] Start: 06-07-2023 [facility] Start: 06-07-2023 Plain chest X-ray [facility] Start: 06-07-2023 XR Chest Single view [facility] Start: 06-07-2023 [facility] Start: 05-04-2023 Blood chemistry [facility] Start: 05-03-2023 Blood chemistry [facility] Start: 05-02-2023 Blood chemistry [facility] Start: 05-01-2023 Blood chemistry [facility] Start: 04-30-2023 Blood chemistry [facility] Start: 04-29-2023 Patient discharge [facility] Start: 04-28-2023 Inhalation therapy procedure [facility] Start: 04-27-2023 Application of intermittent pneumatic compression device [facility] Start: 04-26-2023 Following clinical p athway protocol [facility] Start: 04-26-2023 Assessment of risk o f venous thromboembolism [facility] Start: 04-26-2023 Care regimes management [facility] Start: 04-26-2023 Documentation procedure [facility] Start: 04-26-2023 Insertion of cathete r into peripheral vein [facility] Start: 04-26-2023 Measuring intake and output [facility] Start: 04-26-2023 Notification of physician [facility] Start: 04-26-2023 Providing care accor ding to standard [facility] Start: 04-26-2023 Provision of activit y privileges [facility] Start: 04-26-2023 Referral to occupati onal therapist [facility] Start: 04-26-2023 Referral to service [facility] Start: 04-26-2023 [facility] Start: 04-26-2023 Admission procedure [facility] Start: 04-26-2023 Hospital admission, emergency, from emergency room, medical nature [facility] Start: 04-26-2023 Troponin I measurement [facility] Start: 04-26-2023 End: 04-26-2023 [facility] Start: 03-18-2023 Patient discharge [facility] Start: 03-16-2023 Administration of bl ood product [facility] Start: 03-15-2023 Referral to occupati onal therapist [facility] Start: 03-15-2023 Referral to service [facility] Start: 03-15-2023 Care planning and pr oblem solving actions [facility] Start: 03-14-2023 [facility] Start: 03-14-2023 Application of intermittent pneumatic compression device [facility] Start: 03-14-2023 Prothrombin time [facility] Start: 03-14-2023 Thyroid stimulating hormone measurement [facility] Start: 03-14-2023 [facility] Start: 03-14-2023 Administration of bl ood product [facility] Start: 03-14-2023 Referral to gastroenterology service [facility] Start: 03-13-2023 Following clinical p athway protocol [facility] Start: 03-13-2023 Hospital admission, emergency, from emergency room, medical nature [facility] Start: 03-13-2023 Application of intermittent pneumatic compression device [facility] Start: 03-13-2023 Assessment of risk o f venous thromboembolism [facility] Start: 03-13-2023 Care regimes management [facility] Start: 03-13-2023 Continuous pulse oximetry [facility] Start: 03-13-2023 Documentation procedure [facility] Start: 03-13-2023 Elevation of head of bed [facility] Start: 03-13-2023 Insertion of cathete r into peripheral vein [facility] Start: 03-13-2023 Maintenance therapy [facility] Start: 03-13-2023 Measuring intake and output [facility] Start: 03-13-2023 Notification of physician [facility] Start: 03-13-2023 Oxygen therapy [facility] Start: 03-13-2023 Providing care accor ding to standard [facility] Start: 03-13-2023 Vital signs measurements [facility] Start: 03-13-2023 End: 03-14-2023 [facility] Start: 03-13-2023 Continuous positive airway pressure ventilation treatment [facility] Start: 03-13-2023 Verification routine [facility] Start: 03-13-2023 End: 03-13-2023 Admission procedure [facility] Start: 03-13-2023 Administration of bl ood product [facility] Start: 03-13-2023 Leukocyte reduced re d blood cells [facility] Start: 03-07-2023 Patient referral [facility] Work Phone: Start: 03-03-2023 Patient discharge [facility] Start: 03-03-2023 Referral to service [facility] Start: 03-02-2023 Administration of bl ood product [facility] Start: 03-02-2023 Application of elast ic bandage [facility] Start: 02-28-2023 End: 03-01-2023 [facility] Start: 02-28-2023 [facility] Start: 02-27-2023 Administration of bl ood product [facility] Start: 02-27-2023 Referral to gastroenterology service [facility] Start: 02-26-2023 [facility] Start: 02-26-2023 Following clinical p athway protocol [facility] Start: 02-26-2023 Referral to occupati onal therapist [facility] Start: 02-26-2023 Referral to service [facility] Start: 02-26-2023 Fluid restriction [facility] Start: 02-26-2023 Following clinical p athway protocol [facility] Start: 02-26-2023 Assessment of risk o f venous thromboembolism [facility] Start: 02-26-2023 Care regimes management [facility] Start: 02-26-2023 Elevation of affecte d extremity [facility] Start: 02-26-2023 Insertion of cathete r into peripheral vein [facility] Start: 02-26-2023 Measuring intake and output [facility] Start: 02-26-2023 Notification of physician [facility] Start: 02-26-2023 Oxygen therapy [facility] Start: 02-26-2023 Patient education [facility] Start: 02-26-2023 Providing care accor ding to standard [facility] Start: 02-26-2023 Provision of activit y privileges [facility] Start: 02-26-2023 Referral to service [facility] Start: 02-26-2023 [facility] Start: 02-26-2023 Verification routine [facility] Start: 02-26-2023 Admission procedure [facility] Start: 02-26-2023 Hospital admission, emergency, from emergency room, medical nature [facility] Start: 02-26-2023 End: 02-26-2023 [facility] Start: 02-26-2023 Patient referral to dietitian [facility] Start: 10-27-2022 Patient referral [facility] Work Phone: Start: 10-27-2022 Patient discharge [facility] Start: 10-26-2022 Ambulation without limitation [facility] Start: 10-26-2022 Cardiac monitoring [facility] Start: 10-26-2022 Cardiac rehabilitati on - phase 1 [facility] Start: 10-26-2022 Cardiac rehabilitati on - phase 2 [facility] Start: 10-26-2022 Notification of physician [facility] Start: 10-26-2022 Patient discharge [facility] Start: 10-26-2022 Taking patient vital signs [facility] Start: 10-26-2022 Vascular disease ris k assessment [facility] Start: 10-26-2022 Vital signs measurements [facility] Start: 10-26-2022 End: 10-26-2022 [facility] Start: 10-24-2022 Continuous positive airway pressure ventilation treatment [facility] Start: 10-24-2022 Referral to occupati onal therapist [facility] Start: 10-24-2022 Referral to service [facility] Start: 10-23-2022 [facility] Start: 10-23-2022 Provision of activit y privileges [facility] Start: 10-22-2022 Following clinical p athway protocol [facility] Start: 10-22-2022 Dual pressure sponta neous ventilation support [facility] Start: 10-21-2022 Referral to it telecom technician [facility] Start: 10-21-2022 [facility] Start: 10-21-2022 Thyroid stimulating hormone measurement [facility] Start: 10-21-2022 [facility] Start: 10-21-2022 Troponin I measurement [facility] Start: 10-21-2022 Following clinical p athway protocol [facility] Start: 10-21-2022 Application of elast ic bandage [facility] Start: 10-21-2022 Assessment of risk o f venous thromboembolism [facility] Start: 10-21-2022 Care regimes management [facility] Start: 10-21-2022 Continuous positive airway pressure ventilation treatment [facility] Start: 10-21-2022 Elevation of affecte d extremity [facility] Start: 10-21-2022 Incentive spirometry [facility] Start: 10-21-2022 Inhalation therapy procedure [facility] Start: 10-21-2022 Insertion of cathete r into peripheral vein [facility] Start: 10-21-2022 Introduction of urin subhash catheter [facility] Start: 10-21-2022 Measuring intake and output [facility] Start: 10-21-2022 Notification of physician [facility] Start: 10-21-2022 Oxygen therapy [facility] Start: 10-21-2022 Patient education [facility] Start: 10-21-2022 Providing care accor ding to standard [facility] Start: 10-21-2022 Provision of activit y privileges [facility] Start: 10-21-2022 Referral to service [facility] Start: 10-21-2022 [facility] Start: 10-21-2022 Verification routine [facility] Start: 10-21-2022 Admission procedure [facility] Start: 10-21-2022 Consultation [facility] Start: 10-18-2022 Patient discharge [facility] Start: 10-18-2022 Continuous pulse oximetry [facility] Start: 10-18-2022 Dual pressure sponta neous ventilation support [facility] Start: 10-17-2022 Care regimes management [facility] Start: 10-17-2022 Notification of physician [facility] Start: 10-17-2022 [facility] Start: 10-17-2022 Following clinical p athway protocol [facility] Start: 10-17-2022 Assessment of risk o f venous thromboembolism [facility] Start: 10-17-2022 Inhalation therapy procedure [facility] Start: 10-17-2022 Insertion of cathete r into peripheral vein [facility] Start: 10-17-2022 Oxygen therapy [facility] Start: 10-17-2022 Providing care accor ding to standard [facility] Start: 10-17-2022 Referral to occupati onal therapist [facility] Start: 10-17-2022 Referral to service [facility] Start: 10-17-2022 [facility] Start: 10-17-2022 Verification routine [facility] Start: 10-17-2022 Admission procedure [facility] Start: 10-17-2022 Consultation [facility] Start: 10-17-2022 [facility] Start: 08-18-2022 Patient referral [facility] Work Phone: Start: 05-20-2022 End: 05-20-2022 [facility] Start: 02-16-2022 Patient referral [facility] Work Phone: Start: 01-17-2022 Patient referral [facility] Work Phone: Start: 11-24-2021 Iv infusion therapy prophylaxis/dx ea hour THER/PROPH/DIAG IV INF ADDON [facility] Work Phone: Start: 11-24-2021 Iv infusion therapy/prophylaxis /dx 1st to 1 hr THER/PROPH/DIAG IV INF INIT [facility] Work Phone: Start: 11-18-2021 Patient referral [facility] Work Phone: Start: 10-15-2021 Patient discharge [facility] Work Phone: Start: 10-13-2021 Referral to occupati onal therapist [facility] Work Phone: Start: 10-13-2021 Referral to service [facility] Work Phone: Start: 10-12-2021 Patient referral [facility] Work Phone: Start: 10-12-2021 Cardiac monitoring [facility] Work Phone: Start: 10-12-2021 Cardiac rehabilitati on - phase 1 [facility] Work Phone: Start: 10-12-2021 Notification of physician [facility] Work Phone: Start: 10-12-2021 Oxygen therapy [facility] Work Phone: Start: 10-12-2021 Patient discharge [facility] Work Phone: Start: 10-12-2021 Systemic arterial pr essure monitoring [facility] Work Phone: Start: 10-12-2021 Taking patient vital signs [facility] Work Phone: Start: 10-12-2021 Vascular disease ris k assessment [facility] Work Phone: Start: 10-12-2021 Vital signs measurements [facility] Work Phone: Start: 10-12-2021 [facility] Work Phone: Start: 10-11-2021 Continuous pulse oximetry [facility] Work Phone: Start: 10-11-2021 Catheterization of vein [facility] Work Phone: Start: 10-11-2021 Medication not administered [facility] Work Phone: Start: 10-11-2021 Preoperative care [facility] Work Phone: Start: 10-11-2021 [facility] Work Phone: Start: 10-11-2021 Referral to it telecom technician [facility] Work Phone: Start: 10-11-2021 Application of intermittent pneumatic compression device [facility] Work Phone: Start: 10-11-2021 Assessment of risk o f venous thromboembolism [facility] Work Phone: Start: 10-11-2021 Care regimes management [facility] Work Phone: Start: 10-11-2021 Fall prevention [facility] Work Phone: Start: 10-11-2021 Insertion of cathete r into peripheral vein [facility] Work Phone: Start: 10-11-2021 Introduction of urin subhash catheter [facility] Work Phone: Start: 10-11-2021 Measuring intake and output [facility] Work Phone: Start: 10-11-2021 Oxygen therapy [facility] Work Phone: Start: 10-11-2021 Providing care accor ding to standard [facility] Work Phone: Start: 10-11-2021 Provision of activit y privileges [facility] Work Phone: Start: 10-11-2021 Referral to service [facility] Work Phone: Start: 10-11-2021 Tobacco use cessatio n education [facility] Work Phone: Start: 10-11-2021 Following clinical p athway protocol [facility] Work Phone: Start: 10-11-2021 Verification routine [facility] Work Phone: Start: 10-11-2021 Dual pressure sponta neous ventilation support [facility] Work Phone: Start: 10-11-2021 End: 10-11-2021 [facility] Work Phone: Start: 10-10-2021 Admission procedure [facility] Work Phone: Start: 07-30-2021 Patient discharge [facility] Work Phone: Start: 07-27-2021 Following clinical p athway protocol [facility] Work Phone: Start: 07-27-2021 Continuous pulse oximetry [facility] Work Phone: Start: 07-27-2021 Dual pressure sponta neous ventilation support [facility] Work Phone: Start: 07-27-2021 Assessment of risk o f venous thromboembolism [facility] Work Phone: Start: 07-27-2021 End: 07-27-2021 Care regimes management [facility] Work Phone: Start: 07-27-2021 Insertion of cathete r into peripheral vein [facility] Work Phone: Start: 07-27-2021 End: 07-27-2021 Notification of physician [facility] Work Phone: Start: 07-27-2021 Oxygen therapy [facility] Work Phone: Start: 07-27-2021 Providing care accor ding to standard [facility] Work Phone: Start: 07-27-2021 Referral to occupati onal therapist [facility] Work Phone: Start: 07-27-2021 Referral to service [facility] Work Phone: Start: 07-27-2021 End: 07-27-2021 [facility] Work Phone: Start: 07-27-2021 Admission procedure Arboleda ster [facility] Work Phone: Start: 06-11-2021 Patient referral nenita arrieta [facility] Work Phone: Start: 05-18-2021 Iv infusion therapy prophylaxis/dx ea hour THER/PROPH/DIAG IV INF ADDON [facility] Work Phone: Start: 03-11-2019 Shingrix Vaccine (3 of 3) Hutton grix Vaccine (3 of 3) [facility] Start: 2016 RSV Vaccine (1 - Ris k 60-74 years 1-dose series) RSV Vaccine (1 - Risk 60-74 years 1-dose series) [facility] Start: 2001 Prostate specific an tigen measurement Prostate Cancer Screening Discussion [facility] Start: 2001 Screening for malign ant neoplasm of colon [facility] Start: 11-16-1975 Urine microalbumin profile DTa P,Tdap,Td Vaccine (1 - Tdap) [facility] Start: 1974 Annual PCP Team Twisting [employer] Fixer joao Disease Visit Annual PCP Team Chronic Disease Visit [facility] Start: 1974 Anxiety Screening Anxiety Screening [facility] Start: 1974 Depression Screening Depression Scre ening [facility] Start: 1974 Hepatitis B surface antibody level LDL Cholesterol [facility] Start: 1974 Hepatitis C screening Hepatitis C Sc shanae [facility] Start: 1966 Diabetic foot examination Diabetic F oot Exam [facility] Start: 1966 Glaucoma screening Dilated Retinal E xam [facility] Start: 1966 Hepatitis B screening Urine Albumin:Creatinine Ratio [facility] Start: 1961 Hemoglobin A1c measurement HbA1C [facility] 24 hour urine calciu m output measurement [facility] Work Phone: Alanine aminotransfe rase [Enzymatic activity/volume] in Serum or Plasma [facility] Alanine aminotransfe rase [Enzymatic activity/volume] in Serum or Plasma [facility] Albumin [Mass/volume ] in Serum or Plasma [facility] Albumin [Mass/volume ] in Serum or Plasma [facility] Alkaline phosphatase [Enzymatic activity/volume] in Serum or Plasma [facility] Alkaline phosphatase [Enzymatic activity/volume] in Serum or Plasma [facility] Anion gap measurement [facility] Anion gap measurement [facility] Anion gap measurement [facility] Aspartate aminotrans ferase [Enzymatic activity/volume] in Serum or Plasma [facility] Aspartate aminotrans ferase [Enzymatic activity/volume] in Serum or Plasma [facility] Bilirubin, total measurement [facility] Bilirubin, total measurement [facility] BLADDER SCAN BLADDER SCAN Procedures Routine Prostate cancer screening Ordered: 09/18/2024 [facility] Comment on above: Ordered: 09/18/2024 Blood chemistry [facility] Work Phone: BUN/Creatinine ratio [facility] BUN/Creatinine ratio [facility] BUN/Creatinine ratio [facility] Calcium [Mass/volume ] in Serum or Plasma [facility] Calcium [Mass/volume ] in Serum or Plasma [facility] Calcium [Mass/volume ] in Serum or Plasma [facility] Carbon dioxide, tota l [Moles/volume] in Serum or Plasma [facility] Carbon dioxide, tota l [Moles/volume] in Serum or Plasma [facility] Carbon dioxide, tota l [Moles/volume] in Serum or Plasma [facility] Cardiac event recording [facility] Chloride [Moles/volu me] in Serum or Plasma [facility] Chloride [Moles/volu me] in Serum or Plasma [facility] Chloride [Moles/volu me] in Serum or Plasma [facility] Cholesterol [Mass/vo lume] in Serum or Plasma [facility] Cholesterol in HDL [Mass/volume] in Serum or Plasma [facility] Cholesterol in LDL [Mass/volume] in Serum or Plasma [facility] Creatinine [Mass/rosa e] in 24 hour Urine [facility] Work Phone: Creatinine [Moles/vo lume] in Serum or Plasma [facility] Creatinine [Moles/vo lume] in Serum or Plasma [facility] Creatinine [Moles/vo lume] in Serum or Plasma [facility] Erythrocyte mean corpuscular volume determination [facility] Glucose [Mass/volume ] in Serum or Plasma [facility] Glucose [Mass/volume ] in Serum or Plasma [facility] Glucose [Mass/volume ] in Serum or Plasma [facility] Hematocrit [Volume Fraction] of Blood [facility] Hematocrit [Volume Fraction] of Blood [facility] Hematocrit [Volume Fraction] of Blood [facility] Hemoglobin [Mass/vol ume] in Blood [facility] Hemoglobin [Mass/vol ume] in Blood [facility] Hemoglobin [Mass/vol ume] in Blood [facility] INR in Blood by Coagulation assay [facility] Leukocytes [#/volume ] in Blood [facility] Leukocytes [#/volume ] in Blood [facility] Leukocytes [#/volume ] in Blood [facility] Magnesium [Mass/volu me] in Serum or Plasma [facility] Mean corpuscular hemoglobin concentration determination [facility] Mean corpuscular hemoglobin concentration determination [facility] Mean corpuscular hemoglobin concentration determination [facility] Mean corpuscular hemoglobin determination [facility] Mean corpuscular hemoglobin determination [facility] Mean corpuscular hemoglobin determination [facility] Measurement of occul t blood in stool specimen using immunoassay [facility] Work Phone: Measurement of occul t blood in stool specimen using immunoassay [facility] Measurement of renal function [facility] Measurement of renal function [facility] Measurement of renal function [facility] MR Brain WO contrast [facility] Neutrophil count [facility] Neutrophil count [facility] Neutrophil count [facility] Neutrophil percent differential count [facility] Neutrophil percent differential count [facility] Neutrophil percent differential count [facility] Patient Education [facility] Work Phone: Patient referral [facility] Work Phone: Platelets [#/volume] in Blood [facility] Platelets [#/volume] in Blood [facility] Platelets [#/volume] in Blood [facility] Potassium [Moles/vol ume] in Serum or Plasma [facility] Potassium [Moles/vol ume] in Serum or Plasma [facility] Potassium [Moles/vol ume] in Serum or Plasma [facility] Red blood cell count [facility] Red blood cell count [facility] Red blood cell count [facility] Red cell distributio n width determination [facility] Red cell distributio n width determination [facility] Red cell distributio n width determination [facility] Sodium [Moles/volume ] in Serum or Plasma [facility] Sodium [Moles/volume ] in Serum or Plasma [facility] Sodium [Moles/volume ] in Serum or Plasma [facility] Thyroid stimulating hormone measurement [facility] Total protein measurement [facility] Total protein measurement [facility] Triglycerides measurement [facility] Urea nitrogen [Mass/volume] in Serum or Plasma [facility] Urea nitrogen [Mass/volume] in Serum or Plasma [facility] Urea nitrogen [Mass/volume] in Serum or Plasma [facility] Vitamin D, 25-hydrox y measurement [facility] VLDL cholesterol measurement [facility] Immunizations Immunization Date Immunization Notes Care Provider [facility] 02-26-2023 Influenza High-Dose Quadrivalent Dr. Mery Raymond Work Phone: [facility] 02-26-2023 influenza virus vacc ine, unspecified formulation Delmy Burciaga PA-C Work Phone: [facility] 02-16-2022 influenza, injectabl e, quadrivalent, preservative free [facility] 02-16-2022 influenza, seasonal, injectable MD Ordonez [facility] 02-16-2022 pneumococcal conjuga te vaccine, 13 valent alvaroadenajenaro [facility] 05-11-2021 Covid (Moderna) Dr. Pravin Raymond Work Phone: [facility] 10-20-2020 Covid (Moderna) Dr. Pravin Raymond Work Phone: [facility] 09-22-2020 Covid (Moderna) Dr. Pravin Raymond Work Phone: [facility] 01-07-2020 influenza, injectable,quadrivalent, preservative free, pediatric Dr. Mery Raymond Work Phone: [facility] 01-07-2020 Flucelvax Quad 2019- 2020 (PF) (flu vac qs 2019(4 yr up)CD(PF)) 60 mcg ([address] Mery Raymond Work Phone: [facility] Work Phone: 01-14-2019 Influenza, injectabl e, Madin Alethea Canine Kidney, preservative free, quadrivalent Dr. Mery Raymond Work Phone: [facility] 01-14-[address] Mery Raymond Work Phone: [facility] 12-15-[address] Mery Raymond Work Phone: [facility] 12-15-2016 influenza, injectabl e, quadrivalent, preservative free [facility] 12-15-2016 influenza, seasonal, injectable Dr. Mery Raymond Work Phone: [facility] 11-21-2016 pneumococcal polysaccharide vaccine, [address] Mery Raymond Work Phone: [facility] 01-05-[address] Mery Raymond Work Phone: [facility] 11-18-2015 influenza, injectabl e, quadrivalent, preservative free [facility] 11-18-2015 influenza, seasonal, injectable Dr. Mery Raymond Work Phone: [facility] 11-18-2015 pneumococcal polysaccharide vaccine, [address] Mery Raymond Work Phone: [facility] 11-18-2015 zoster vaccine, live Dr. Kevin Raymond Work Phone: [facility] 02-23-2007 influenza, injectabl e, quadrivalent, preservative free [facility] 02-23-2007 influenza, seasonal, injectable Dr. Mery Raymond Work Phone: [facility] Payers Date Payer Category Payer Medicare (Managed Care) [employer]ERALD [employer] [id number] 2023 Medicaid [id number] 2023 Self-pay [id number] 2023 Unknown [id number] 2017 Medicare [id number] 2016 Unknown [id number] Unknown [id number] Unknown [id number] Unknown [id number] 2.840.1.779218.3.579.2. 462 Unknown [id number] 2.840.1.465538.3.579.2. 462 Unknown [id number] 2.840.1.360419.3.579.2. 462 Unknown [id number] 2.840.1.255505.3.579.2. 462 Unknown [id number] 2.840.1.892760.3.579.2. 462 Unknown [id number] 2.840.1.360082.3.579.2. 462 Unknown [id number] 2.840.1.311975.3.579.2. 462 Unknown [id number] 2.16.840.1.459479.3.579.2. 462 Unknown [id number] 2.16840.1.014765.3.579.2. 462 Unknown [id number] 2.16.840.1.558855.3.579.2. 462 Unknown [id number] 2.16840.1.826363.3.579.2. 462 Unknown [id number] 2.16840.1.848457.3.579.2. 462 Unknown [id number] 2.840.1.374841.3.579.2. 462 Unknown [id number] 2.840.1.808005.3.579.2. 462 Unknown [id number] 2.840.1.707392.3.579.2. 462 Unknown [id number] 2.840.1.264740.3.579.2. 462 Unknown [id number] 2.840.1.327612.3.579.2. 462 Unknown [id number] 2.840.1.444773.3.579.2. 462 Unknown [id number] 2.840.1.213312.3.579.2. 462 Unknown [id number] 2.840.1.192647.3.579.2. 462 Unknown [id number] 2.840.1.677848.3.579.2. 462 Unknown [id number] 2.840.1.943891.3.579.2. 462 Unknown [id number] 2.840.1.654224.3.579.2. 462 Unknown [id number] 2.840.1.010988.3.579.2. 462 Unknown [id number] 2.840.1.064133.3.579.2. 462 Unknown [id number] 2.16.840.1.246362.3.579.2. 462 Unknown [id number] 2.16.840.1.876944.3.579.2. 462 Unknown [id number] 2.16.840.1.423845.3.579.2. 462 Unknown [id number] 2.16.840.1.185315.3.579.2. 462 Unknown [id number] 2.16.840.1.717072.3.579.2. 462 Unknown [id number] 2.16.840.1.082980.3.579.2. 462 Unknown [id number] 2.16.840.1.833825.3.579.2. 462 Unknown [id number] 2.16.840.1.440500.3.579.2. 462 Unknown [id number] 2.16.840.1.501853.3.579.2. 462 Unknown [id number] 2.16.840.1.144459.3.579.2. 462 Unknown [id number] 2.16.840.1.597905.3.579.2. 462 Unknown [id number] 2.16.840.1.785532.3.579.2. 462 Unknown [id number] 2.16.840.1.388429.3.579.2. 462 Unknown [id number] 2.16.840.1.226916.3.579.2. 462 Unknown [id number] 2.16840.1.520389.3.579.2. 462 Unknown [id number] 2.16840.1.244769.3.579.2. 462 Social History Date Type Detail Facility Start: 07-27-2021 End: 08-11-2023 Tobacco smoking status SDIS Unknown if ever smoked [facility] Start: 06-10-2017 None [facility] Start: 06-10-2017 Alone [facility] Start: 05-21-2021 Non-smoker [facility] Start: 1955 Sex Assigned At Male [facility] Start: 10-25-2023 End: 09-03-2024 Tobacco smoking status NHIS Never smoked tobacco (finding) [facility] Start: 07-02-2024 Sex Male (finding) [facility] Start: 09-18-2024 History of Social function [facility] Start: 09-18-2024 Area Deprivation Index [facility] National Score (1-10 0), lower number is lower risk 61 [facility] Start: 1955 Sex assigned at Not on file [facility] Procedure Code Equipment Code Equipment Origin al Text Equipment Identifier Dates EGD, with monitored anesthesia care [id number] [facility] Start: 03-14-2023 Blood Sugar Diagnostic (Onetouch Verio Test Strips) strip Start: 11-23-2020 Pen Needle, Diabetic (Bd Ultra-Fine Lorie Pen Needle) 32 gauge x 5/32 needle Start: 02-16-2021 Blood Sugar Diagnostic (Onetouch Verio Test Strips) strip Start: 01-21-2020 End: 11-23-2020 Insulin Syringe-Needle U-100 (Bd Insulin Syringe Ultra-Fine) 1 mL 30 gauge x 1/2 syringe Start: 03-13-2019 End: 03-20-2019 Insulin Syringe-Needle U-100 (Bd Insulin Syringe Ultra-Fine) 1 mL 30 gauge x 1/2 syringe Start: 03-13-2018 End: 03-13-2019 Insulin Syringe-Needle U-100 (Easy Touch Insulin Syringe) 0.3 mL 31 gauge x 5/16 syringe Start: 03-08-2018 End: 03-13-2018 Pen Needle, Diabetic (Bd Ultra-Fine Lorie Pen Needle) 32 gauge x 5/32 needle Start: 10-25-2019 End: 11-23-2020 Pen Needle, Diabetic (Bd Ultra-Fine Lorie Pen Needle) 32 gauge x 5/32 needle Start: 11-23-2020 End: 02-16-2021 Blood Sugar Diagnostic (Onetouch Verio Test Strips) strip Start: 11-23-2020 Pen Needle, Diabetic (Bd Ultra-Fine Lorie Pen Needle) 32 gauge x 5/32 needle Start: 02-16-2021 Blood Sugar Diagnostic (Onetouch Verio Test Strips) strip Start: 01-21-2020 End: 11-23-2020 Insulin Syringe-Needle U-100 (Bd Insulin Syringe Ultra-Fine) 1 mL 30 gauge x 1/2 syringe Start: 03-13-2019 End: 03-20-2019 Insulin Syringe-Needle U-100 (Bd Insulin Syringe Ultra-Fine) 1 mL 30 gauge x 1/2 syringe Start: 03-13-2018 End: 03-13-2019 Insulin Syringe-Needle U-100 (Easy Touch Insulin Syringe) 0.3 mL 31 gauge x 5/16 syringe Start: 03-08-2018 End: 03-13-2018 Pen Needle, Diabetic (Bd Ultra-Fine Lorie Pen Needle) 32 gauge x 5/32 needle Start: 10-25-2019 End: 11-23-2020 Pen Needle, Diabetic (Bd Ultra-Fine Lorie Pen Needle) 32 gauge x 5/32 needle Start: 11-23-2020 End: 02-16-2021 Blood Sugar Diagnostic (Onetouch Verio Test Strips) strip Start: 11-23-2020 Pen Needle, Diabetic (Bd Ultra-Fine Lorie Pen Needle) 32 gauge x 5/32 needle Start: 02-16-2021 Blood Sugar Diagnostic (Onetouch Verio Test Strips) strip Start: 01-21-2020 End: 11-23-2020 Insulin Syringe-Needle U-100 (Bd Insulin Syringe Ultra-Fine) 1 mL 30 gauge x 1/2 syringe Start: 03-13-2019 End: 03-20-2019 Insulin Syringe-Needle U-100 (Bd Insulin Syringe Ultra-Fine) 1 mL 30 gauge x 1/2 syringe Start: 03-13-2018 End: 03-13-2019 Insulin Syringe-Needle U-100 (Easy Touch Insulin Syringe) 0.3 mL 31 gauge x 5/16 syringe Start: 03-08-2018 End: 03-13-2018 Pen Needle, Diabetic (Bd Ultra-Fine Lorie Pen Needle) 32 gauge x 5/32 needle Start: 10-25-2019 End: 11-23-2020 Pen Needle, Diabetic (Bd Ultra-Fine Lorie Pen Needle) 32 gauge x 5/32 needle Start: 11-23-2020 End: 02-16-2021 Blood Sugar Diagnostic (Onetouch Verio Test Strips) strip Start: 11-23-2020 Pen Needle, Diabetic (Bd Ultra-Fine Lorie Pen Needle) 32 gauge x 5/32 needle Start: 02-16-2021 Blood Sugar Diagnostic (Onetouch Verio Test Strips) strip Start: 01-21-2020 End: 11-23-2020 Insulin Syringe-Needle U-100 (Bd Insulin Syringe Ultra-Fine) 1 mL 30 gauge x 1/2 syringe Start: 03-13-2019 End: 03-20-2019 Insulin Syringe-Needle U-100 (Bd Insulin Syringe Ultra-Fine) 1 mL 30 gauge x 1/2 syringe Start: 03-13-2018 End: 03-13-2019 Insulin Syringe-Needle U-100 (Easy Touch Insulin Syringe) 0.3 mL 31 gauge x 5/16 syringe Start: 03-08-2018 End: 03-13-2018 Pen Needle, Diabetic (Bd Ultra-Fine Lorie Pen Needle) 32 gauge x 5/32 needle Start: 10-25-2019 End: 11-23-2020 Pen Needle, Diabetic (Bd Ultra-Fine Lorie Pen Needle) 32 gauge x 5/32 needle Start: 11-23-2020 End: 02-16-2021 Blood Sugar Diagnostic (Onetouch Verio Test Strips) strip Start: 11-23-2020 Pen Needle, Diabetic (Bd Ultra-Fine Lorie Pen Needle) 32 gauge x 5/32 needle Start: 02-16-2021 Blood Sugar Diagnostic (Onetouch Verio Test Strips) strip Start: 01-21-2020 End: 11-23-2020 Insulin Syringe-Needle U-100 (Bd Insulin Syringe Ultra-Fine) 1 mL 30 gauge x 1/2 syringe Start: 03-13-2019 End: 03-20-2019 Insulin Syringe-Needle U-100 (Bd Insulin Syringe Ultra-Fine) 1 mL 30 gauge x 1/2 syringe Start: 03-13-2018 End: 03-13-2019 Insulin Syringe-Needle U-100 (Easy Touch Insulin Syringe) 0.3 mL 31 gauge x 5/16 syringe Start: 03-08-2018 End: 03-13-2018 Pen Needle, Diabetic (Bd Ultra-Fine Lorie Pen Needle) 32 gauge x 5/32 needle Start: 10-25-2019 End: 11-23-2020 Pen Needle, Diabetic (Bd Ultra-Fine Lorie Pen Needle) 32 gauge x 5/32 needle Start: 11-23-2020 End: 02-16-2021 ([id number]) [id number] [facility] Start: 10-12-2021 Blood Sugar Diagnostic (Onetouch Verio Test Strips) strip Start: 11-23-2020 Pen Needle, Diabetic (Bd Ultra-Fine Lorie Pen Needle) 32 gauge x 5/32 needle Start: 02-16-2021 Blood Sugar Diagnostic (Onetouch Verio Test Strips) strip Start: 01-21-2020 End: 11-23-2020 Insulin Syringe-Needle U-100 (Bd Insulin Syringe Ultra-Fine) 1 mL 30 gauge x 1/2 syringe Start: 03-13-2019 End: 03-20-2019 Insulin Syringe-Needle U-100 (Bd Insulin Syringe Ultra-Fine) 1 mL 30 gauge x 1/2 syringe Start: 03-13-2018 End: 03-13-2019 Insulin Syringe-Needle U-100 (Easy Touch Insulin Syringe) 0.3 mL 31 gauge x 5/16 syringe Start: 03-08-2018 End: 03-13-2018 Pen Needle, Diabetic (Bd Ultra-Fine Lorie Pen Needle) 32 gauge x 5/32 needle Start: 10-25-2019 End: 11-23-2020 Pen Needle, Diabetic (Bd Ultra-Fine Lorie Pen Needle) 32 gauge x 5/32 needle Start: 11-23-2020 End: 02-16-2021 Blood Sugar Diagnostic (Onetouch Verio Test Strips) strip Start: 11-23-2020 Pen Needle, Diabetic (Bd Ultra-Fine Lorie Pen Needle) 32 gauge x 5/32 needle Start: 02-16-2021 Blood Sugar Diagnostic (Onetouch Verio Test Strips) strip Start: 01-21-2020 End: 11-23-2020 Insulin Syringe-Needle U-100 (Bd Insulin Syringe Ultra-Fine) 1 mL 30 gauge x 1/2 syringe Start: 03-13-2019 End: 03-20-2019 Insulin Syringe-Needle U-100 (Bd Insulin Syringe Ultra-Fine) 1 mL 30 gauge x 1/2 syringe Start: 03-13-2018 End: 03-13-2019 Insulin Syringe-Needle U-100 (Easy Touch Insulin Syringe) 0.3 mL 31 gauge x 5/16 syringe Start: 03-08-2018 End: 03-13-2018 Pen Needle, Diabetic (Bd Ultra-Fine Lorie Pen Needle) 32 gauge x 5/32 needle Start: 10-25-2019 End: 11-23-2020 Pen Needle, Diabetic (Bd Ultra-Fine Lorie Pen Needle) 32 gauge x 5/32 needle Start: 11-23-2020 End: 02-16-2021 Blood Sugar Diagnostic (Onetouch Verio Test Strips) strip Start: 2021 Pen Needle, Diabetic (Bd Ultra-Fine Lorie Pen Needle) 32 gauge x 5/32 needle Start: 02-16-2021 Blood Sugar Diagnostic (Onetouch Verio Test Strips) strip Start: 01-21-2020 End: 11-23-2020 Blood Sugar Diagnostic (Onetouch Verio Test Strips) strip Start: 11-23-2020 End: 2021 Insulin Syringe-Needle U-100 (Bd Insulin Syringe Ultra-Fine) 1 mL 30 gauge x 1/2 syringe Start: 03-13-2019 End: 03-20-2019 Insulin Syringe-Needle U-100 (Bd Insulin Syringe Ultra-Fine) 1 mL 30 gauge x 1/2 syringe Start: 03-13-2018 End: 03-13-2019 Insulin Syringe-Needle U-100 (Easy Touch Insulin Syringe) 0.3 mL 31 gauge x 5/16 syringe Start: 03-08-2018 End: 03-13-2018 Pen Needle, Diabetic (Bd Ultra-Fine Lorie Pen Needle) 32 gauge x 5/32 needle Start: 10-25-2019 End: 11-23-2020 Pen Needle, Diabetic (Bd Ultra-Fine Lorie Pen Needle) 32 gauge x 5/32 needle Start: 11-23-2020 End: 02-16-2021 Blood Sugar Diagnostic (Onetouch Verio Test Strips) strip Start: 2021 Pen Needle, Diabetic (Bd Ultra-Fine Lorie Pen Needle) 32 gauge x 5/32 needle Start: 02-16-2021 Blood Sugar Diagnostic (Onetouch Verio Test Strips) strip Start: 01-21-2020 End: 11-23-2020 Blood Sugar Diagnostic (Onetouch Verio Test Strips) strip Start: 11-23-2020 End: 2021 Insulin Syringe-Needle U-100 (Bd Insulin Syringe Ultra-Fine) 1 mL 30 gauge x 1/2 syringe Start: 03-13-2019 End: 03-20-2019 Insulin Syringe-Needle U-100 (Bd Insulin Syringe Ultra-Fine) 1 mL 30 gauge x 1/2 syringe Start: 03-13-2018 End: 03-13-2019 Insulin Syringe-Needle U-100 (Easy Touch Insulin Syringe) 0.3 mL 31 gauge x 5/16 syringe Start: 03-08-2018 End: 03-13-2018 Pen Needle, Diabetic (Bd Ultra-Fine Lorie Pen Needle) 32 gauge x 5/32 needle Start: 10-25-2019 End: 11-23-2020 Pen Needle, Diabetic (Bd Ultra-Fine Lorie Pen Needle) 32 gauge x 5/32 needle Start: 11-23-2020 End: 02-16-2021 Blood Sugar Diagnostic (Onetouch Verio Test Strips) strip Start: 02-16-2022 Pen Needle, Diabetic (Bd Ultra-Fine Lorie Pen Needle) 32 gauge x 5/32 needle Start: 02-16-2021 Blood Sugar Diagnostic (Onetouch Verio Test Strips) strip Start: 01-21-2020 End: 11-23-2020 Blood Sugar Diagnostic (Onetouch Verio Test Strips) strip Start: 2021 End: 02-16-2022 Blood Sugar Diagnostic (Onetouch Verio Test Strips) strip Start: 11-23-2020 End: 2021 Blood Sugar Diagnostic (Onetouch Verio Test Strips) strip Start: 02-16-2022 End: 02-16-2022 Insulin Syringe-Needle U-100 (Bd Insulin Syringe Ultra-Fine) 1 mL 30 gauge x 1/2 syringe Start: 03-13-2019 End: 03-20-2019 Insulin Syringe-Needle U-100 (Bd Insulin Syringe Ultra-Fine) 1 mL 30 gauge x 1/2 syringe Start: 03-13-2018 End: 03-13-2019 Insulin Syringe-Needle U-100 (Easy Touch Insulin Syringe) 0.3 mL 31 gauge x 5/16 syringe Start: 03-08-2018 End: 03-13-2018 Pen Needle, Diabetic (Bd Ultra-Fine Lorie Pen Needle) 32 gauge x 5/32 needle Start: 10-25-2019 End: 11-23-2020 Pen Needle, Diabetic (Bd Ultra-Fine Lorie Pen Needle) 32 gauge x 5/32 needle Start: 11-23-2020 End: 02-16-2021 Blood Sugar Diagnostic (Onetouch Verio Test Strips) strip Start: 09-06-2022 Pen Needle, Diabetic (Bd Ultra-Fine Lorie Pen Needle) 32 gauge x 5/32 needle Start: 04-08-2022 Blood Sugar Diagnostic (Onetouch Verio Test Strips) strip Start: 01-21-2020 End: 11-23-2020 Blood Sugar Diagnostic (Onetouch Verio Test Strips) strip Start: 2021 End: 02-16-2022 Blood Sugar Diagnostic (Onetouch Verio Test Strips) strip Start: 11-23-2020 End: 2021 Blood Sugar Diagnostic (Onetouch Verio Test Strips) strip Start: 02-16-2022 End: 02-16-2022 Blood Sugar Diagnostic (Onetouch Verio Test Strips) strip Start: 02-16-2022 End: 09-06-2022 Insulin Syringe-Needle U-100 (Bd Insulin Syringe Ultra-Fine) 1 mL 30 gauge x 1/2 syringe Start: 03-13-2019 End: 03-20-2019 Insulin Syringe-Needle U-100 (Bd Insulin Syringe Ultra-Fine) 1 mL 30 gauge x 1/2 syringe Start: 03-13-2018 End: 03-13-2019 Insulin Syringe-Needle U-100 (Easy Touch Insulin Syringe) 0.3 mL 31 gauge x 5/16 syringe Start: 03-08-2018 End: 03-13-2018 Pen Needle, Diabetic (Bd Ultra-Fine Lorie Pen Needle) 32 gauge x 5/32 needle Start: 10-25-2019 End: 11-23-2020 Pen Needle, Diabetic (Bd Ultra-Fine Lorie Pen Needle) 32 gauge x 5/32 needle Start: 02-16-2021 End: 04-08-2022 Pen Needle, Diabetic (Bd Ultra-Fine Lorie Pen Needle) 32 gauge x 5/32 needle Start: 11-23-2020 End: 02-16-2021 ()[id number] FDA Start: 10-26-2022 ()[id number] FDA Start: 10-26-2022 ()[id number] FDA Start: 10-26-2022 ([id number]) ()[id number] FDA Start: 06-19-2023 ([id number]) ()[id number] FDA Start: 06-19-2023 ([id number]) [id number] FDA Start: 06-19-2023 Goals Date Patient Goal Desired Activity /State Functional Status Date Assessment Result Facility 08-12-2024 Functional status Chair [facility] Work Phone: 07-31-2023 Functional status Ambulates;Elias r;Bedside Commode [facility] Work Phone: 07-31-2023 Functional status Fair [facility] Work Phone: 06-20-2023 Functional status With Assist of 1 [facility] Work Phone: 06-08-2023 Functional status Ambulates;Bathroom Priv ilege [facility] Work Phone: 04-29-2023 Functional status Chair [facility] Work Phone: 04-29-2023 Functional status Independent [facility] Work Phone: 04-29-2023 Functional status Rolling Walker [facility] Work Phone: 03-18-2023 Functional status Chair [facility] Work Phone: 03-03-2023 Functional status Chair [facility] Work Phone: 10-27-2022 Functional status Bathroom Privilege [facility] Work Phone: 10-18-2022 Functional status Chair [facility] Work Phone: 10-15-2021 Functional status Chair;Assist w ith Urinal;Stand with Urinal [facility] Work Phone: 07-30-2021 Functional status Up ad gianni [facility] Work Phone: 05-21-2021 Functional status Chair [facility] Work Phone: Mental Status Date Assessment Result Facility 09-04-2024 Cognitive function Voice/Name;Touch/Shaki ng [facility] Work Phone: 09-04-2024 Cognitive function Person;Place;Time [facility] Work Phone: 08-12-2024 Cognitive function Voice/Name [facility] Work Phone: 08-11-2023 Cognitive function Awake;Alert;A ppropriate;Follow s Commands [facility] Work Phone: 07-31-2023 Cognitive function Voice/Name [facility] Work Phone: 07-31-2023 Cognitive function Voice/Name [facility] Work Phone: 07-13-2023 Cognitive function Voice/Name [facility] Work Phone: 06-20-2023 Cognitive function Voice/Name [facility] Work Phone: 06-08-2023 Cognitive function Voice/Name [facility] Work Phone: 06-07-2023 Cognitive function Voice/Name [facility] Work Phone: 04-29-2023 Cognitive function Voice/Name [facility] Work Phone: 04-26-2023 Cognitive function Voice/Name [facility] Work Phone: 03-18-2023 Cognitive function Voice/Name;To uch/Shaking;Light Pain;Deep Pain [facility] Work Phone: 03-03-2023 Cognitive function Voice/Name [facility] Work Phone: 10-27-2022 Cognitive function Voice/Name [facility] Work Phone: 10-20-2022 Cognitive function Awake;Alert;Appropriat e [facility] Work Phone: 10-18-2022 Cognitive function Voice/Name [facility] Work Phone: 10-18-2022 Cognitive function Cooperative;Anxious [facility] Work Phone: 11-24-2021 Cognitive function Voice/Name [facility] Work Phone: 10-15-2021 Cognitive function Voice/Name [facility] Work Phone: 10-10-2021 Cognitive function Voice/Name [facility] Work Phone: 08-23-2021 Cognitive function Level Of Cons ciousness Awake;Alert;Appropriate;Follow s Commands [facility] Work Phone: 07-30-2021 Cognitive function Voice/Name [facility] Work Phone: 06-08-2021 Cognitive function Level Of Cons ciousness Awake;Alert;Appropriate;Follow s Commands [facility] Work Phone: 05-21-2021 Cognitive function Voice/Name [facility] Work Phone: Clinical Notes 05-11-2016 to 09-18-2024 Patient InstructionsSravani Desai LPN - 09/18/2024 9:19 AM EDDelmy Delgado PA-C - 09/18/2024 9:00 AM EDT Note Date & Type Note Facility 09-18-2024 Instructions Delmy Burciaga PA-C - 09/18/2024 9:45 AM EDT We started you on a new medication Flomax. Take as prescribed. I will fax the prescription over to the [facility] We ordered a PSA lab for you today. Please get this done before your next scheduled visit with me. Since you were unable to provide a urine sample today I put in an order for you to get done at any [facility] lab to be completed if needed. Next time you come to see me please come with a full bladder so we can do a urine sample. If you need anything in the meantime our office number is [phone] and as to speak to a nurse in Urology. documented in this encounter [facility] 09-18-2024 Note HNO ID: [id number] Author: SRAVANI DESAI LPN Service: ? Author Type: LICENSED NURSE Type: Progress Notes Filed: 09/18/2024 10:31 Note Text: Bladder scan obtained 0 ml of urine [facility] 09-18-2024 History of Presen t illness Narrative Bladder scan obtained 0 ml of urine [facility] MALE PATIENT - HISTORY AND PHYSICAL EXAMINATION PATIENT: Shade Teixeira Patient has been identified by name and date of : Yes Recording using Modality software for draft documentation of the visit was discussed with the patient/authorized outside medical sales representative; all questions welcomed and answered. Patient/authorized outside medical sales representative agreed to proceed PCP: No primary care provider on file. CHIEF COMPLAINT: Trouble urinating HISTORY OF PRESENT ILLNESS: Mr. Teixeira is a 68 year old male with PMHx significant for CHF, DM2 on insulin, CKD3, CAD, COPD on 3 L of oxygen, HTN, HLD and FAVIAN presenting for trouble urinating. Patient reports he will urinate once normal and then 3 or 4 mintues he will go again. States he squats to help him fully empty his bladder. Reports he was previously hospitalized at [facility] for CHF and he was given heavy doses of IV lasix. He states there was one incident that required him to get a straight cath and they got out almost 400mL. Went home without a catheter. Review: Daytime frequency: Q 1 Hrs; on water pills Night time frequency: 1 X (wears BiPAP at night) Irritative (STORAGE) symptoms: - Bothersome frequency: Yes - Urgency: Yes - Incontinence: Stress No / Urge No - Wears depends when he is traveling due to the limited access of bathrooms Obstructive symptoms: - Force of stream Poor - Hesitancy Yes - Intermittency: Yes - Straining: No - Incomplete emptying: No- after he goes the second time he feels empty - Double voiding: Yes - Postvoid dribbling: Yes Current Urinary Status: - Indwelling catheter: None . - Current intermittent Catheterization: No - Gross hematuria: No - UTI: No, reports he has some burning with urination for last 2 years. Denies fever and chills. Drinks: Cranberry and orange juice in the morning. Diet coke, iced tea pure leaf unsweented and water. History of prosate cancer: unsure History of bladder cancer: none History of kidney cancer: none History of kidney stones: yes REVIEW OF SYSTEMS: Refer to HPI for relevant info PAST MEDICAL HISTORY: No past medical history on file. No past surgical history on file. No family history on file. MEDICATIONS: reviewed and confirmed with patient OFFICE DATA: reviewed 09/18/24 PVR: 0 ML - was unable to urinate in office. URINE POC: Was unable to provide urine sample OTHER DATA: reviewed Labs reviewed No results found for: PSA No results found for: TESTOST, TESTFREE No results found for: HBA1C No results found for: TSH No results found for: CREAT PHYSICAL EXAMINATION: The sensitive examination was discussed with the Patient or Patient's Authorized News Writer. As applicable, any other physician, advance practice provider, medical student, or other health professional student that will be observing or involved in the sensitive examination for educational or training purposes was discussed with the Patient or Authorized News Writer. The Patient or Authorized News Writer has agreed to proceed with the sensitive examination. (Sensitive examination includes inspection and/or palpation of the breasts, pelvis, prostate and anorectal regions) General appearance: cooperative, pleasant, no acute distress, alert and oriented Neuro: normal affect, normal speech, gait is normal. Lungs/chest: no signs of respiratory distress, no audible wheezing Prostate: Deffered by patient ASSESSMENT: 1. BPH with obstruction/lower urinary tract symptoms - ICD9: 600.01, 599.69, ICD10: N40.1, N13.8 (primary diagnosis) 2. Urinary frequency - ICD9: 788.41, ICD10: R35.0 3. Dysuria - ICD9: 788.1, ICD10: R30.0 4. Prostate cancer screening - ICD9: V76.44, ICD10: Z12.5 PLAN: ASSESSMENT/PLAN: 1. BPH with obstruction/lower urinary tract symptoms - ICD9: 600.01, 599.69, ICD10: N40.1, N13.8 (primary diagnosis) - severe obstructive luts symptoms - was unable to get UA/ accurate PVR- due to not being able to provide urine samples - Initiated tamsulosin 0.4 mg orally once daily at bedtime to improve urine flow by relaxing the bladder neck and prostate. Printed script. - Discussed potential side effects, including dizziness and retrograde ejaculation. - consider double flomax at next visit if symptoms don't improve - BACTERIAL CULTURE, URINE 2. Urinary frequency - ICD9: 788.41, ICD10: R35.0 - urinating every hour - currently taking lasix - drinks bladder irritants ( diet coke, tea, and juice) - discussed bladder hygiene 3. Dysuria - ICD9: 788.1, ICD10: R30.0 - the last 2 years - unable to provide UA - could be 2/2 to pelvic floor - order urine culture to get completed at any [facility] lab if symptoms worsen or contact our office - BACTERIAL CULTURE, URINE 4 . Prostate cancer screening - ICD9: V76.44, ICD10: Z12.5 - Ordered PSA blood test to establish a baseline and monitor for potential prostate cancer - Patient to have blood test drawn at a [facility] lab. - Pt deferred JUAN JOSÉ due to having stomach issues; will assess next visit - Will monitor PSA levels yearly - PROSTATE-SPECIFIC ANTIGEN DIAGNOSTIC - BLADDER SCAN RTC in 8 weeks, PSA prior The results of tests will be communicated to patient via . Patient verbalized understanding. Delmy Burciaga PA-C Location: [place] documented in this encounter [facility] 09-18-2024 Note HNO ID: [id number] Author: DELMY BURCIAGA PA-C Service: ? Author Type: Physician Assistant General Manager Type: Progress Notes Filed: 09/18/2024 10:31 Note Text: [facility] MALE PATIENT - HISTORY AND PHYSICAL EXAMINATION PATIENT: Shade Teixeira Patient has been identified by name and date of : Yes Recording using Modality software for draft documentation of the visit was discussed with the patient/authorized outside medical sales representative; all questions welcomed and answered. Patient/authorized outside medical sales representative agreed to proceed PCP: No primary care provider on file. CHIEF COMPLAINT: Trouble urinating HISTORY OF PRESENT ILLNESS: Mr. Teixeira is a 68 year old male with PMHx significant for CHF, DM2 on insulin, CKD3, CAD, COPD on 3 L of oxygen, HTN, HLD and FAVIAN presenting for trouble urinating. Patient reports he will urinate once normal and then 3 or 4 mintues he will go again. States he squats to help him fully empty his bladder. Reports he was previously hospitalized at [facility] for CHF and he was given heavy doses of IV lasix. He states there was one incident that required him to get a straight cath and they got out almost 400mL. Went home without a catheter. Review: Daytime frequency: Q 1 Hrs; on water pills Night time frequency: 1 X (wears BiPAP at night) Irritative (STORAGE) symptoms: - Bothersome frequency: Yes - Urgency: Yes - Incontinence: Stress No / Urge No - Wears depends when he is traveling due to the limited access of bathrooms Obstructive symptoms: - Force of stream Poor - Hesitancy Yes - Intermittency: Yes - Straining: No - Incomplete emptying: No- after he goes the second time he feels empty - Double voiding: Yes - Postvoid dribbling: Yes Current Urinary Status: - Indwelling catheter: None . - Current intermittent Catheterization: No - Gross hematuria: No - UTI: No, reports he has some burning with urination for last 2 years. Denies fever and chills. Drinks: Cranberry and orange juice in the morning. Diet coke, iced tea pure leaf unsweented and water. History of prosate cancer: unsure History of bladder cancer: none History of kidney cancer: none History of kidney stones: yes REVIEW OF SYSTEMS: Refer to HPI for relevant info PAST MEDICAL HISTORY: No past medical history on file. No past surgical history on file. No family history on file. MEDICATIONS: reviewed and confirmed with patient OFFICE DATA: reviewed 09/18/24 PVR: 0 ML - was unable to urinate in office. URINE POC: Was unable to provide urine sample OTHER DATA: reviewed Labs reviewed No results found for: PSA No results found for: TESTOST, TESTFREE No results found for: HBA1C No results found for: TSH No results found for: CREAT PHYSICAL EXAMINATION: The sensitive examination was discussed with the Patient or Patient's Authorized News Writer. As applicable, any other physician, advance practice provider, medical student, or other health professional student that will be observing or involved in the sensitive examination for educational or training purposes was discussed with the Patient or Authorized News Writer. The Patient or Authorized News Writer has agreed to proceed with the sensitive examination. (Sensitive examination includes inspection and/or palpation of the breasts, pelvis, prostate and anorectal regions) General appearance: cooperative, pleasant, no acute distress, alert and oriented Neuro: normal affect, normal speech, gait is normal. Lungs/chest: no signs of respiratory distress, no audible wheezing Prostate: Deffered by patient ASSESSMENT: 1. BPH with obstruction/lower urinary tract symptoms - ICD9: 600.01, 599.69, ICD10: N40.1, N13.8 (primary diagnosis) 2. Urinary frequency - ICD9: 788.41, ICD10: R35.0 3. Dysuria - ICD9: 788.1, ICD10: R30.0 4. Prostate cancer screening - ICD9: V76.44, ICD10: Z12.5 PLAN: ASSESSMENT/PLAN: 1. BPH with obstruction/lower urinary tract symptoms - ICD9: 600.01, 599.69, ICD10: N40.1, N13.8 (primary diagnosis) - severe obstructive luts symptoms - was unable to get UA/ accurate PVR- due to not being able to provide urine samples - Initiated tamsulosin 0.4 mg orally once daily at bedtime to improve urine flow by relaxing the bladder neck and prostate. Printed script. - Discussed potential side effects, including dizziness and retrograde ejaculation. - consider double flomax at next visit if symptoms don't improve - BACTERIAL CULTURE, URINE 2. Urinary frequency - ICD9: 788.41, ICD10: R35.0 - urinating every hour - currently taking lasix - drinks bladder irritants ( diet coke, tea, and juice) - discussed bladder hygiene 3. Dysuria - ICD9: 788.1, ICD10: R30.0 - the last 2 years - unable to provide UA - could be 2/2 to pelvic floor - order urine culture to get completed at any [facility] lab if symptoms worsen or contact our office - DARREL (more content not included)... [facility] 09-04-2024 Procedure note [facility] 09-04-2024 Procedure note [facility] 06-21-2024 Radiology Diagnostic study note [facility] 06-14-2024 Evaluation note Diagnosis Onset Date Resolution Right upper quadrant abdominal pain acute June 14, 2024 1:47pm Biliary sludge acute July 9:27am Right upper quadrant abdominal pain acute July 22, 2024 9:27am Anxiety and depression chronic Ap ril 2024 2:29pm Asthma chronic August 01 2:29pm Chronic hypoxemic respiratory failure chronic August 01, 2024 2:29pm Irregular heart beat chronic Apri l 2024 2:29pm Lives in half-way chronic Jul 2:29pm Obesity chronic August 01 2:29pm FAVIAN (obstructive sleep apnea) chronic August 01, 2024 2:29pm Secondary pulmonary hypertension chronic August 01, 2024 2:29pm Acute exacerbation of CHF (congestive heart failure) inactive August 092024 4:23pm Cellulitis and abscess of left leg inactive August 09, 2024 4:23pm Edema acute August 15, 2024 8:35am Presence of permanent cardiac pacemaker acute August 15, 2024 8:35am Atherosclerosis of coronary artery of [place] heart without angina pectoris chronic August 15, 2024 8:35am Benign essential HTN chronic August 15, 2024 8:35am Hyperlipidemia chronic August 15, 2 025 8:35am Primary hyperparathyroidism chronic August 15, 2024 8:35am Renal insufficiency chronic August 152024 8:35am Atrial fibrillation inactive August 152024 8:35am Right upper quadrant abdominal pain acute September 04, 2024 10:49am [facility] Work Phone: 1(159) 819-759712-06-2024 Evaluation note* Diagnosis Onset Date Resolution Status Admit Date Abnormal chest xray acute Decem 2023 2:08pm Asthma chronic March 15, 2024 2:08pm Chronic hypoxemic respirator y failure chronic March 15 2:08pm FAVIAN (obstructive sleep apnea) chroni c March 15, 2024 2:08pm Secondary pulmonary hypertension chr onic March 15, 2024 2:08pm Benign essential HTN chronic Jean Carlos subhash 2024 10:50am Obesity chronic April 25, 2024 10:50am Primary hyperparathyroidism chronic April 25, 2024 10:50am Renal insufficiency chronic Janua ry 2024 10:50am Type 2 diabetes mellitus chronic April 25, 2024 10:50am Asthma chronic May 03, 2024 1:26pm Chronic hypoxemic respirator y failure chronic May 03 1:26pm FAVIAN (obstructive sleep apnea) chroni c May 03, 2024 1:26pm Secondary pulmonary hypertension chr onic May 03, 2024 1:26pm Right upper quadrant abdomin al pain acute June 14, 2024 1:47pm [facility] Work Phone: 1(608) 301-309605-03-2024 Discharge summary Author Darian Vargas [facility] August 11, 2023 8:02pm Note Date/Time August 11, 2023 5:43pm [facility] Medical Records Department [address] [place] [id number] Emergency Department Summary 08/11/23 MR#: [id number] Acct: [id number] Name: SHADE TEIXEIRA Rep #:[id number] : 1955 67 From: Darian Vargas MD PCP: Dr. Mery Raymond MD Status:R EG ER Location: ED HPI History of Present Illness Chief Complaint: Edema Narrative Narrative: 67-year-old male past medical history of hypertension, coronary artery disease, congestive heart failure, pacemaker placement back in June of this year, presents with achy joints and mild shortness of breath and increased bilateral leg swelling. He relates history that he was admitted to the hospital and [facility] the last few weeks if not longer. He is there for rehabilitation. Today, he started having achy joints, pain in his bilateral knees and shoulders. He may have an occasional cough. Healso stated that he feels slightly short of breath. When he was hospitalized they had upped his Lasix to 80 mg and [facility] but states he is now back down to 40 mg daily. He states his legs are swollen, and he feels generally weak. [facility] Medical History Abnormal chest xray Acquired left ventricular hypertrophy Acute hypoxemic respiratory failure Acute midline thoracic back pain Adult failure to thrive Alcohol abuse Ambulates with cane Anemia Anxiety Anxiety and depression Arthritis Arthritis Asthma Atherosclerosis of coronary artery of [place] heart without angina pectoris Atrial fibrillation Back pain Benign essential HTN BiPAP (biphasic positive airway pressure) dependence Cardiology follow-up encounter Chest pain Chest pain Chronic hypoxemic respiratory failure Chronic pain of both knees Chronic wound of head Colon cancer screening Congestive heart failure Congestive heart failure (CHF) COPD (chronic obstructive pulmonary disease) Dark stools Debility Depression Depression Diabetes Dietary restriction Dizziness MEANS (dyspnea on exertion) DVT (deep venous thrombosis) Dyspnea on exertion Fall Fatigue Gastric ulcer GERD (gastroesophageal reflux disease) GI bleed Health care maintenance Heart failure with preserved ejection fraction Hepatitis History of diverticulitis History of DVT (deep vein thrombosis) History of echocardiogram History of edema History of GI bleed History of pulmonary embolism History of renal disease History of stress test History of ulceration Hypercalcemia Hyperlipidemia Hyperparathyroidism Hypertension Hypertriglyceridemia Hypotension Hypoxia Injury of head and neck Insomnia Intermittent chest pain Irregular heart beat Lives in half-way Loss of hearing Morbid obesity with BMI of 40.0-44.9, adult Near syncope Non-smoker Obesity Olecranon bursitis FAVIAN (obstructive sleep apnea) Osteoarthritis Osteopenia Presence of permanent cardiac pacemaker Pressure ulcer Primary hyperparathyroidism Pulmonary embolism Pure hypercholesterolemia Renal insufficiency Sciatica Secondary pulmonary hypertension Seizures Shortness of breath Shortness of breath on exertion Sick sinus syndrome Thyroid disease Tinnitus of both ears Type 2 diabetes mellitus Uses wheelchair Vertigo Vitamin D deficiency Wears glasses Home Medications clopidogrel 75 mg tablet 75 mg PO DAILY BLOOD THINNER #90 tabs 10/03/22 [Rx Last Taken 07/28/23] ranolazine 500 mg tablet,extended release,12 hr 500 mg PO BID chest pain #180 tabs 12/20/22 [Rx Last Taken 07/28/23] cinacalcet 30 mg tablet 30 mg PO BID hypercalcemia #60 tabs 03/07/23 [Rx Last Taken 07/28/23] albuterol sulfate 90 mcg/actuation aerosol inhaler 2 puff inhalation Q6H PRN shortness of breath or wheezing 04/14/23 [History Last Taken 07/28/23] amlodipine 5 mg tablet 10 mg PO DAILY blood pressure 04/14/23 [History Last Taken 07/28/23] ferrous sulfate 325 mg (65 mg iron) tablet 325 mg PO DAILY supplement #90 tabs 05/19/23 [Rx Last Taken 07/28/23] paroxetine HCl 40 mg tablet 40 mg PO DAILY mood #30 tabs 05/19/23 [Rx Last Taken 07/28/23] pantoprazole 40 mg tablet,delayed release 40 mg PO DAILY GI #90 tabs 06/01/23 [Rx Last Taken Unknown] metoprolol succinate 50 mg tablet,extended release 24 hr 50 mg PO Q12H blood pressure #60 tabs 06/12/23 [Rx Last Taken 06/19/23] furosemide 40 mg tablet 40 mg PO BID water pill #30 tabs 07/31/23 [Rx Last Taken 07/28/23] hydralazine 25 mg tablet 25 mg PO TID #0 tabs 07/31/23 [Rx Last Taken Unknown] insulin glargine-yfgn 100 unit/mL (3 mL) subcutaneous pen 15 unit (0.15 mL) subcut BID #0 mL 07/31/23 [Rx Last Taken Unknown] losartan 25 mg tablet 25 mg PO DAILY #0 tabs 07/31/23 [Rx Last Taken Unknown] oxycodone 5 mg tablet 5 mg PO Q4H PRN PRN Pain Score 6-10 2 days #10 tabs 07/31/23 [Rx Last Taken Unknown] potassium chloride 20 mEq tablet,extended release(part/cryst) 20 meq PO BIDCM #0tabs 07/31/23 [Rx Last Taken Unknown] sucralfate 1 gram tablet 1 g PO 1HR_ACHS #0 tabs 07/31/23 [Rx Last Taken Unknown] bisacodyl 10 mg rectal suppository 10 mg MA DAILY PRN constipation 08/08/23 [History Last Taken Unknown] insulin lispro 100 unit/mL subcutaneous solution (Humalog U-100 Insulin) 1 sliding scale dose subcut USEASDIRECTD 08/08/23 [History Last Taken Unknown] magnesium hydroxide 400 mg/5 mL oral suspension (Milk of Magnesia) 30 ml PO DAILY PRN constipation 08/08/23 [History Last Taken Unknown] mineral oil (Fleet Mineral Oil enema) 118 ml MA DAILY PRN constipation 08/08/23 [History Last Taken Unknown] fenofibrate micronized 200 mg capsule 200 mg PO DAILY 08/11/23 [History Last Taken Unknown] Allergy/AdvReac Type Severity Reaction Status Date / Time No Known Allergies Allergy Verified 08/08/23 13:02 Family History Mother Colon cancer Sister CAD (coronary artery disease) CABG x 5 Diabetes Myocardial infarction, Onset Age: 67 Father Crohns disease Surgical History History of appendectomy History of appendectomy 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) History of cardiac catheterization History of coronary artery stent placement (10/21/22) History of eye surgery History of hip replacement History of intestinal surgery History of knee surgery History of tonsillectomy and adenoidectomy Social History household members: none housing: apartment current occupational status: retired pets and animals: No other: Hx working in [employer] and [employer]. Smoking Status: Never smoker second hand exposure: Yes alcohol intake: former year quit: 2003 details: Sober since 2003. substance use type: former substance user Date of last use: 04/10/2004 and marijuana caffeine: Yes Type: carbonated beverages Number of servings: 2 and coffee Number of servings: 2 what type of physical activity do you participate in: none ROS ROS ED ROS Narrative Constitutional: No fever, no chills. HEENT: No sore throat. No neck pain. No loss of vision. No rhinorrhea. Cardiovascular: No chest pain. No palpitations. Worsening pedal edema. Respiratory: Occasional cough, mild shortness of breath. Abdominal: No abdominal pain. No nausea. No vomiting. Genitourinary: No dysuria. No hematuria. Musculoskeletal: No myalgias. Multiple myalgias, especially bilateral knees andbilateral shoulders Neurologic: No headaches. No dizziness. No lightheadedness. Skin: No rash. No change in color. Psychiatric: No depression. No anxiety. EXAM Physical Exam Narrative Exam Narrative: Afebrile. Vital signs noted. HEENT: Normocephalic. Atraumatic. PERRL, EOMI. Neck soft and supple. No pointtenderness or step off. Cardiovascular: Regular rate and rhythm. No murmurs, rubs, or gallops appreciated. Respiratory: No tachypnea. Lungs clear to auscultation bilaterally. Gastrointestinal: Abdomen soft, nontender, with normoactive bowel sounds. No rebound or guarding. Neurological: Awake. Alert. Nonfocal, nonlateralizing. Skin: No rash. Normal color. No pallor. Musculoskeletal: Bilateral symmetric pedal edema. Full range of motion extremities. Const Vital Signs: 08/11/23 17:24 08/11/23 18:48 08/11/23 19:23 Temperature 99.1 F Temperature Source Oral Pulse Rate 80 79 Respiratory Rate 24 H 16 Respiratory Effort Short of Breath Respiratory Pattern Normal Blood Pressure 182/101 H 120/70 Blood Pressure Mean 128 86 Pulse Ox 94 96 Oxygen Delivery Method Room Air Room Air MDM MDM MDM Narrative Medical decision making narrative: Patient has slightly elevated temperature of 99 ?F. Concern would be for pneumonia causing his shortness of breath versus CHF exacerbation versus influenza given his arthralgias. For his generalized weakness, he may have a low potassium or be dehydrated as he takes Lasix. Comprehensive workup was pursued. I will hold off on bolus of IV fluids given his history of CHF. I reviewed his prior records and he had a history of sick sinus syndrome which wasthe problem placement for his pacemaker. He has had chronic lower extremity edema as well. EKG was obtained and interpreted by myself independently as atrial fibrillation with frequent ventricular paced complexes at [address] changes. No STEMI. I reviewed his laboratory work and he has slightly elevated white count of 11.2 which I think is nonspecific, hemoglobin stable at 9.5, platelet count normal at 305. His electrolyte panel is grossly unremarkable except for BUN of 55 and creatinine 2.18 he has history of chronic kidney disease. Sodium is normal at 136 and potassium 3.7. High-sensitivity troponin is 27, I do not feel that he is having ACS as a cause of his generalized weakness. BNP is elevated above 300 slightly, but this appears to be his baseline. Chest x-ray 1view interpreted by myself independently shows no pneumonia or pneumothorax. I reviewed the radiology report which confirms my independent interpretation. He was administered morphine and ondansetron for his bilateral shoulder and bilateral knee pain. Regardless of if he has infected urine, I do not feel thathe requires admission as he [facility] already [facility]. He will be treated with antibiotics if indicated. However, initial review of his urinalysis is negative for ketones, leukocyte esterase, nitrates. Disposition is discharged in stable condition. History & Record Review Discussion w/independent historian: Patient Additional record(s) reviewed:: Prior labs and Other (retirement paperwork) Lab Data Attestation: I reviewed the patient's lab results. Labs: Laboratory Results - last 24 hr 08/11/23 08/11/23 18:20 19:42 WBC 11.2 H RBC 3.68 L Hgb 9.5 L Hct 31.6 L MCV 85.9 MCH 25.8 L MCHC 30.1 L RDW Std Deviation 53.7 H RDW Coeff of Thao 17.1 H Plt Count 305 MPV 10.0 Immature Gran % (Auto) 0.800 Neut % (Auto) 81.6 H Lymph % (Auto) 2.6 L Alpine % (Auto) 14.0 H Eos % (Auto) 0.6 Baso % (Auto) 0.4 Absolute Neuts (auto) 9.1 H Absolute Lymphs (auto) 0.29 L Nucleated RBC % 0 Differential Comment SEE COMMENTS Diff Path Review May foll Platelet Estimate ADEQUATE RBC Morphology NORM C+C Hypochromasia RARE Anisocytosis RARE Ovalocytes RARE Sodium 136 Potassium 3.7 Chloride 102 Carbon Dioxide 27.0 Anion Gap 7 BUN 55 H Creatinine 2.18 H Estim Creat Clear Calc 42.43 Est GFR (MDRD) Af Amer 39 L Est GFR (MDRD) Non-Af 32 L BUN/Creatinine Ratio 25.2 H Glucose 244 H Lactic Acid 1.5 Calcium 10.1 Total Bilirubin 0.70 AST 17 ALT 31 Alkaline Phosphatase 60 Troponin I High Sens 27 B-Natriuretic Peptide 305.5 H Total Protein 7.0 Albumin 3.3 Globulin 3.7 Albumin/Globulin Ratio 0.9 Urine Color Yellow Urine Clarity Clear Urine pH 6.0 Ur Specific [place] 1.015 Urine Protein 30 H Urine Glucose (UA) 100 H Urine Ketones Negative Urine Occult Blood Negative Urine Nitrite Negative Urine Bilirubin Negative Urine Urobilinogen Normal Ur Leukocyte Esterase Negative Radiography Diagnostic Testing: Clinical Impression(s) from Imaging Studies Chest X-Ray 08/11/23 18:08 IMPRESSION: No acute process Electronically Signed: Kev Ross MD at 19:04 EDT , Discharge Plan Triage Chief Complaint: Edema ED Provider: Darian Vargas Dx/Rx/DC Orders Clinical Impression: Lower extremity edema, Generalized weakness, Bilateral knee pain, Bilateral shoulder pain Instructions: ED Peripheral Edema, Bilateral, ED Pain, Acute, Uncertain Cause, ED Weakness (Uncertain Cause) Prescriptions: No Action cinacalcet 30 mg tablet 30 mg PO BID Qty: 60 8RF mineral oil [Fleet Mineral Oil] Enema 118 ml MA DAILY PRN (Reason: constipation) Rx Instructions: discard any unused portion magnesium hydroxide [Milk of Magnesia] 400 mg/5 mL suspension 30 ml PO DAILY PRN (Reason: constipation) bisacodyl 10 mg suppository 10 mg MA DAILY PRN (Reason: constipation) insulin lispro [Humalog U-100 Insulin] 100 unit/mL solution 1 sliding scale dose subcut USEASDIRECTD Rx Instructions: 200-250 5 units 251-300 8 units 301-350 12 units Use IM before meals and at bedtime for DM albuterol sulfate 90 mcg/actuation HFA aerosol inhaler 2 puff inhalation Q6H PRN (Reason: shortness of breath or wheezing) amlodipine 5 mg tablet 10 mg PO DAILY fenofibrate micronized 200 mg capsule 200 mg PO DAILY hydralazine 25 mg Tablet 25 mg PO TID Qty: 0 0RF losartan 25 mg Tablet 25 mg PO DAILY Qty: 0 0RF oxycodone 5 mg Tablet 5 mg PO Q4H PRN PRN (Reason: Pain Score 6-10) 2 Days Qty: 10 0RF sucralfate 1 gram Tablet 1 g PO 1HR_ACHS Qty: 0 0RF insulin glargine-yfgn 100 unit/mL (3 mL) Insulin Pen 15 unit subcut BID Qty: 0 0RF potassium chloride 20 mEq Tablet,Er Particles/Crystals 20 meq PO BIDCM Qty: 0 0RF furosemide 40 mg tablet 40 mg PO BID Qty: 30 1RF clopidogrel 75 mg tablet 75 mg PO DAILY Qty: 90 3RF ranolazine 500 mg tablet extended release 12 hr 500 mg PO BID Qty: 180 3RF ferrous sulfate 325 mg (65 mg iron) tablet 325 mg PO DAILY Qty: 90 1RF paroxetine HCl 40 mg tablet 40 mg PO DAILY Qty: 30 1RF pantoprazole 40 mg tablet,delayed release (DR/EC) 40 mg PO DAILY Qty: 90 1RF metoprolol succinate 50 mg tablet extended release 24 hr 50 mg PO Q12H Qty: 60 11RF Primary Care Provider: Mery Raymond Referrals: Mery Raymond MD [Primary Care Provider] - As soon as possible Disposition Disposition: Group Home Facility Discharge Location: [facility] What to do if you have Problems For any increased pain, shortness of breath, bleeding, nausea or vomiting, chestpain, or any unexpected problems, contact your Primary Care Provider. Call [facility] ([phone]) or report to the closest Emergency Room. Call 911 if necessary. 08/11/232001 <Electronically signed by Darian Vargas MD> Cosigner Signature (if applicable): CC: Dr. Mery Raymond MD ~ Signed [facility] Work Phone: 1(215) 310-423404-21-2024 Progress note Author Tunde Miller [facility] July 30, 2023 3:42pm Note Date/Time July 30, 2023 3:1 7pm [facility] Medical Records Department [address] [place] [id number] Progress Note - Hospitalist 07/30/23 1515 MR#: [id number] Acct: [id number] Name: TEIXEIRASHADE A Rep #:[id number] : 1955 67 From: Tunde Miller DO PCP: Dr. Mery Raymond MD Status:A DM IN Location: [place] [address] Reason for Visit Reason for Visit: Diagnoses Heart failure, unspecified (07/28/23) Acute respiratory failure with hypoxia (07/28/23) Subjective Subjective Patient was seen and examined today, he is currently on 2 L of oxygen via nasal cannula. His potassium was slightly low today at 3.4. Patient states he wears oxygen at home as needed at night. Objective Data Objective Data Vital Signs: Vital Signs Temp Pulse Resp BP Pulse Ox O2 Del Method O2 Flow Rate 97.8 F 73 16 110/71 98 Nasal Cannula 2 07/30/23 13:09 07/30/23 13:14 07/30/23 13:09 07/30/23 13:14 07/30/23 13:09 07/30/23 13:09 07/30/23 13:09 FiO2 30 07/30/23 05:06 Oxygen Flow Rate (L/min) 2 Oxygen Delivery Method Nasal Cannula Weight: 104.1 kg Body Mass Index (BMI) 32.9 Intake & Output: Intake and Output for Last 24 Hours 07/28/23 07/29/23 07/30/23 23:59 23:59 23:59 Intake Total 1580 / 1580 480 / 480 Output Total 4500 / 4500 1600 / 1600 Balance -2920 / -2920 -1120 / -1120 Lab / Micro Data 07/29/23 08:05 07/30/23 06:03 Labs: Laboratory Results - last 24 hr 07/29/23 16:22: POC Glucose 202 H 07/29/23 20:38: POC Glucose 188 H 07/30/23 06:03: Sodium 142, Potassium 3.4 L, Chloride 108 H, Carbon Dioxide 30.0, Anion Gap 4 L, BUN 38 H, Creatinine 1.83 H, Estim Creat Clear Calc 47.99, Est GFR (MDRD) Af Amer 48 L, Est GFR (MDRD) Non-Af 40 L, BUN/Creatinine Ratio 20.8 H, Glucose 116 H, Calcium 10.1, Iron 46 L, TIBC 427, Iron Saturation 10.8 L, Ferritin 85 07/30/23 06:18: POC Glucose 109 H 07/30/23 10:49: POC Glucose 267 H Physical Exam Narrative alert, oriented x3 and no apparent distress Constitutional Narrative: Patient appears older than stated age General Appearance: cooperative, well kempt and well developed Orientation / Consciousness: awake, oriented to person, oriented to place and oriented to time HEENT normocephalic and moist oral mucous membranes Eyes PERRL, EOMs intact bilaterally and conjunctivae normal Neck supple, no JVD, thyroid normal and no carotid bruits General: trachea midline Resp normal respiratory effort and clear to auscultation bilaterally Auscultation: Negative for rales, rhonchi or wheezes Cardio S1 normal heart sound, S2 normal heart sound, no rub and no gallops Cardio Narrative: Heart rate and rhythm is irregular, there is a 2/6 systolic murmur noted at the apex and right sternal border GI normal to inspection, nondistended, normoactive bowel sounds, soft to palpation,non-tender and non-distended Skin no rashes or lesions noted General Skin Exam: no breakdown Neuro oriented x3, CN's II-XII intact bilaterally, no focal motor deficits and no sensory deficits noted Sensorium / Orientation: awake and alert Speech: speech normal Psych affect normal Assessment & Plan Assessment/Plan (1) CHF (congestive heart failure): PLAN: Plan 1. Acute hypoxia secondary to acute on chronic diastolic congestive heart failure-pulse ox will be monitored, patient is on nasal cannula oxygen. #2 acute on chronic diastolic congestive heart failure-continue IV diuresis, monitor labs #3 type 2 diabetes-patient was placed on sliding scale insulin and Lantus insulin, he takes U-500 insulin at home #4 chronic anxiety/depression-patient will continue Paxil #5 GERD-patient is on a PPI #6 Chronic iron deficiency anemia-patient will be placed on an iron supplement #7 stage IIIb chronic kidney disease-complicates care, management, recovery, andprognosis, labs will be monitored #8 hypokalemia-potassium supplementation was given, labs will be monitored Total clinical time spent by myself addressing the patient's medical issues, reviewing all of his data, and collaborating with patient's care team: 35 minutes Charges/Coding Visit Charges Inpatient E&M: 32875 Subs Hosp L2 07/30/23 1539 <Electronically signed by Tunde Miller DO> Cosigner Signature (if applicable): CC: ~ Signed ADDENDUM by Dr. Tunde Miller DO on 07/30/23 at 1542 Addendum Additional note: Acute hypoxic respiratory failure was ruled out 07/30/23 1542<Electronically signed by Tunde Miller DO> Cosigner Signature (if applicable): cc: ~* Signed [facility] Work Phone: 1(349) 821-285804-20-2024 Progress note Author Tunde Miller [facility] July 29, 2023 6:20pm Note Date/Time July 29, 2023 6:2 0pm [facility] Medical Records Department [facility] [place] [address] Progress Note - Hospitalist 07/29/23 1814 MR#: [id number] Acct: [id number] Name: SHADE TEIXEIRA Rep #:[id number] : 1955 67 From: Tunde Miller DO PCP: Dr. Mery Raymond MD Status:A DM IN Location: [place] [address] Reason for Visit Reason for Visit: Diagnoses Heart failure, unspecified (07/28/23) Acute respiratory failure with hypoxia (07/28/23) Subjective Subjective Patient was seen and examined today, he remains on low-flow nasal cannula oxygenat this time. Potassium was slightly low this morning, I added potassium to hismedications. Objective Data Objective Data Vital Signs: Vital Signs Temp Pulse Resp BP Pulse Ox O2 Del Method O2 Flow Rate 98.5 F 73 18 119/71 98 Nasal Cannula 2 07/29/23 17:32 07/29/23 17:32 07/29/23 17:32 07/29/23 17:32 07/29/23 17:32 07/29/23 17:32 07/29/23 17:32 FiO2 30 07/29/23 03:50 Oxygen Flow Rate (L/min) 2 Oxygen Delivery Method Nasal Cannula Weight: 106.7 kg Body Mass Index (BMI) 33.7 Intake & Output: Intake and Output for Last 24 Hours 07/27/23 07/28/23 07/29/23 23:59 23:59 23:59 Intake Total 1340 / 1340 Output Total 3350 / 3350 Balance -2009 / Lab / Micro Data 07/29/23 08:05 07/29/23 08:05 Labs: Laboratory Results - last 24 hr 07/28/23 23:02: POC Glucose 97 07/29/23 06:08: POC Glucose 116 H 07/29/23 08:05: WBC 8.3, RBC 3.77 L, Hgb 10.0 L, Hct 32.4 L, MCV 85.9, MCH 26.5 L, MCHC 30.9 L, RDW Std Deviation 55.9 H, RDW Coeff of Thao 18.4 H, Plt Count 299, MPV 9.1, Immature Gran % (Auto) 0.600, Neut % (Auto) 84.2 H, Lymph % (Auto)4.9 L, Alpine % (Auto) 7.9, Eos % (Auto) 2.0, Baso % (Auto) 0.4, Absolute Neuts (auto) 7.0, Absolute Lymphs (auto) 0.41 L, Nucleated RBC % 0, Sodium 143, Potassium 3.2 L, Chloride 109 H, Carbon Dioxide 27.0, Anion Gap 7, BUN 39 H, Creatinine 1.74 H, Estim Creat Clear Calc 51.08, Est GFR (MDRD) Af Amer 51 L, Est GFR (MDRD) Non-Af 42 L, BUN/Creatinine Ratio 22.4 H, Glucose 127 H, Calcium 10.0 07/29/23 11:38: POC Glucose 211 H 07/29/23 14:53: POC Glucose 247 H 07/29/23 16:22: POC Glucose 202 H Radiography Diagnostic Testing: Radiology Impression Chest CTA 07/28/23 16:09 IMPRESSION: Small bilateral pleural effusions and mild edema or interstitial infiltrates. Coronary artery disease. Pacer. Bilateral adrenal adenomas. Electronically Signed: Jimmy Portillo MD at 20:29 EDT Reading Location ID and State: [facility] / [place] Tel , Service support , Physical Exam Const alert, oriented x3 and no apparent distress Constitutional Narrative: Patient appears older than stated age General Appearance: cooperative, well kempt and well developed Orientation / Consciousness: awake, oriented to person, oriented to place and oriented to time HEENT normocephalic and moist oral mucous membranes Eyes PERRL, EOMs intact bilaterally and conjunctivae normal Neck supple, no JVD, thyroid normal and no carotid bruits General: trachea midline Resp normal respiratory effort and clear to auscultation bilaterally Auscultation: Negative for rales, rhonchi or wheezes Cardio S1 normal heart sound, S2 normal heart sound, no rub and no gallops Cardio Narrative: Heart rate and rhythm is irregular, there is a 2/6 systolic murmur noted at the apex and right sternal border GI normal to inspection, nondistended, normoactive bowel sounds, soft to palpation,non-tender and non-distended Skin no rashes or lesions noted General Skin Exam: no breakdown Neuro oriented x3, CN's II-XII intact bilaterally, no focal motor deficits and no sensory deficits noted Sensorium / Orientation: awake and alert Speech: speech normal Psych affect normal Assessment & Plan Assessment/Plan (1) CHF (congestive heart failure): PLAN: Plan 1. Acute hypoxic respiratory failure secondary to acute on chronic diastolic congestive heart failure-continue IV diuretics and current medications, monitor pulse ox, patient is on low-flow oxygen #2 acute on chronic diastolic congestive heart failure-continue IV diuresis, monitor labs #3 type 2 diabetes-patient was placed on sliding scale insulin and Lantus insulin, he takes U-500 insulin at home #4 chronic anxiety/depression-patient will continue Paxil #5 GERD-patient is on a PPI #6 chronic anemia-I will obtain ferritin and iron studies on the patient #7 stage IIIb chronic kidney disease-complicates care, management, recovery, andprognosis, labs will be monitored #8 hypokalemia-potassium supplementation was given, labs will be monitored Total clinical time spent by myself addressing the patient's medical issues, reviewing all of his data, and collaborating with patient's care team: 35 minutes Charges/Coding Visit Charges Inpatient E&M: 10030 Subs Hosp L2 07/29/23 1820 <Electronically signed by Tunde Miller DO> Cosigner Signature (if applicable): CC: ~ Signed [facility] Work Phone: 1(268) 330-270004-20-2024 History and physical note Author Narendra Schwartz [facility] July 29, 2023 3:32am Note Date/Time July 29, 2023 2:4 1am [facility] Medical Records Department [address] [place] [id number] H&P Exam - Hospitalist 07/28/23 2200 MR#: [id number] Acct: [id number] Name: SHADE TEIXEIRA Praveen Rep #:[id number] : 1955 67 From: Narendra patiño MD PCP: Dr. Mery Raymond MD Status:A DM IN Location: [place] [id number] HPI - General General Date of Admission: 07/28/23 Date of Service: 07/28/23 HPI Narrative SHADEWINNIE TEIXEIRA, is a 67 M who presents to the hospital with increasing shortness of breath. The majority of his labs appear to be at baseline or close to baseline, pCO2 on ABG was 45.4, his renal function is also at baseline and his BNP is lower than it has been in the past 2 visits however he was placed on BiPAP and given a dose of Lasix as CTA of the chest was negative for PE but did show small bilateral pleural effusions and mild edema. He did feel improved with BiPAP. he says that his shortness of breath significantly worsened yesterday morning and since that time he has progressively gotten worse so he presented [facility]. [facility] Medical History Abnormal chest xray Acquired left ventricular hypertrophy Acute midline thoracic back pain Adult failure to thrive Alcohol abuse Ambulates with cane Anemia Anxiety Anxiety and depression Arthritis Arthritis Asthma Atherosclerosis of coronary artery of [place] heart without angina pectoris Atrial fibrillation Back pain Benign essential HTN BiPAP (biphasic positive airway pressure) dependence Cardiology follow-up encounter Chest pain Chest pain Chronic hypoxemic respiratory failure Chronic pain of both knees Chronic wound of head Colon cancer screening Congestive heart failure Congestive heart failure (CHF) COPD (chronic obstructive pulmonary disease) Dark stools Debility Depression Depression Diabetes Dietary restriction Dizziness MEANS (dyspnea on exertion) DVT (deep venous thrombosis) Dyspnea on exertion Fall Fatigue Gastric ulcer GERD (gastroesophageal reflux disease) GI bleed Health care maintenance Heart failure with preserved ejection fraction Hepatitis History of diverticulitis History of DVT (deep vein thrombosis) History of echocardiogram History of edema History of GI bleed History of pulmonary embolism History of renal disease History of stress test History of ulceration Hypercalcemia Hyperlipidemia Hyperparathyroidism Hypertension Hypertriglyceridemia Hypotension Hypoxia Injury of head and neck Insomnia Intermittent chest pain Irregular heart beat Lives in half-way Loss of hearing Morbid obesity with BMI of 40.0-44.9, adult Near syncope Non-smoker Obesity Olecranon bursitis FAVIAN (obstructive sleep apnea) Osteoarthritis Osteopenia Presence of permanent cardiac pacemaker Pressure ulcer Primary hyperparathyroidism Pulmonary embolism Pure hypercholesterolemia Renal insufficiency Sciatica Secondary pulmonary hypertension Seizures Shortness of breath Shortness of breath on exertion Sick sinus syndrome Stage 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 disease (CKD) Thyroid disease Tinnitus of both ears Type 2 diabetes mellitus Uses wheelchair Vertigo Vitamin D deficiency Wears glasses Home Medications Handicap Tan #1 ea 04/08/20 [Rx Last Taken Unknown] flash glucose scanning reader (FreeStyle Tiffanie 2 Riparius) #1 ea 02/16/21 [Rx Last Taken Unknown] pen needle, diabetic 32 gauge x 5/32 (BD Ultra-Fine Lorie Pen Needle) #360 ea 04/08/22 [Rx Last Taken Unknown] clopidogrel 75 mg tablet 75 mg PO DAILY BLOOD THINNER #90 tabs 10/03/22 [Rx Last Taken 07/28/23] fenofibrate micronized 200 mg capsule 200 mg PO DAILY cholesterol #30 caps 10/20/22 [Rx Last Taken 07/28/23] losartan 25 mg tablet 25 mg PO DAILY blood pressure #90 tabs 12/08/22 [Rx Last Taken 07/28/23] ranolazine 500 mg tablet,extended release,12 hr 500 mg PO BID chest pain #180 tabs 12/20/22 [Rx Last Taken 07/28/23] cinacalcet 30 mg tablet 30 mg PO BID hypercalcemia #60 tabs 03/07/23 [Rx Last Taken 07/28/23] albuterol sulfate 90 mcg/actuation aerosol inhaler 2 puff inhalation Q6H PRN shortness of breath or wheezing 04/14/23 [History Last Taken 07/28/23] amlodipine 5 mg tablet 10 mg PO DAILY blood pressure 04/14/23 [History Last Taken 07/28/23] nitroglycerin 0.4 mg sublingual tablet 0.4 mg sublingual Q5M PRN chest pain 04/14/23 [History Last Taken Unknown] flash glucose sensor (FreeStyle Tiffanie 2 Sensor kit) #2 ea 04/15/23 [Rx Last Taken Unknown] ferrous sulfate 325 mg (65 mg iron) tablet 325 mg PO DAILY supplement #90 tabs 05/19/23 [Rx Last Taken 07/28/23] furosemide 40 mg tablet 40 mg PO DAILY water pill #30 tabs 05/19/23 [Rx Last Taken 07/28/23] paroxetine HCl 40 mg tablet 40 mg PO DAILY mood #30 tabs 05/19/23 [Rx Last Taken 07/28/23] pantoprazole 40 mg tablet,delayed release 40 mg PO DAILY GI #90 tabs 06/01/23 [Rx Last Taken Unknown] potassium chloride 20 mEq tablet,extended release(part/cryst) 20 meq PO BID suppliment 06/07/23 [History Last Taken Unknown] lidocaine 5 % topical patch 1 patch topical DAILY KNEE #15 ea 06/08/23 [Rx Last Taken Unknown] metoprolol succinate 50 mg tablet,extended release 24 hr 50 mg PO Q12H blood pressure #60 tabs 06/12/23 [Rx Last Taken 06/19/23] oxycodone 5 mg tablet 5 mg PO Q4H PRN PRN Pain Score 6-10 3 days #7 tabs 06/20/23 [Rx Last Taken 07/28/23] dulaglutide 1.5 mg/0.5 mL subcutaneous pen injector (Trulicity) 1.5 mg subcut QWEEK BG 07/11/23 [History Last Taken Unknown] sucralfate 1 gram tablet 1 g PO 4X/DAY na 07/11/23 [History Last Taken 07/13/23] hydralazine 25 mg tablet 25 mg PO TID WATER PILL #90 tabs 07/19/23 [Rx Last Taken Unknown] blood sugar diagnostic (Solairedirectuch Verio test strips) 07/28/23 [History Last Taken Unknown] Allergy/AdvReac Type Severity Reaction Status Date / Time No Known Allergies Allergy Verified 07/28/23 14:40 Family History Mother Colon cancer Sister CAD (coronary artery disease) CABG x 5 Diabetes Myocardial infarction, Onset Age: 67 Father Crohns disease Surgical History History of appendectomy History of appendectomy 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) History of cardiac catheterization History of coronary artery stent placement (10/21/22) History of eye surgery History of hip replacement History of intestinal surgery History of knee surgery History of tonsillectomy and adenoidectomy Social History (Updated 07/28/23 @ 22:57 by Li Richard) household members: none housing: apartment current occupational status: retired pets and animals: No other: Hx working in [employer] and [employer]. Smoking Status: Never smoker second hand exposure: Yes alcohol intake: former year quit: 2003 details: Sober since 2003. substance use type: former substance user Date of last use: 04/10/2004 and marijuana caffeine: Yes Type: carbonated beverages Number of servings: 2 and coffee Number of servings: 2 what type of physical activity do you participate in: none ROS Constitutional Constitutional: Denies chills, fatigue, fever(s) or malaise Eyes Eyes: Denies blurry vision ENT HEENT: Denies headache(s) or nasal discharge Cardiovascular Cardiovascular: Reports dyspnea on exertion and edema; Denies chest pain or syncope Respiratory/Chest Respiratory/Chest: Denies cough, shortness of breath at rest or shortness of breath with exertion Gastrointestinal Gastrointestinal: Denies constipation, diarrhea, nausea or vomiting Genitourinary Genitourinary: Denies dysuria Neurologic Neurologic: Denies focal weakness, numbness or tremor(s) Psychiatric Psychiatric: Denies anxiety or depression Vital Signs Vital Signs Vital Signs: 07/28/23 14:39 07/28/23 14:39 07/28/23 15:20 Temperature 97.8 F Temperature Source Temporal Pulse Rate 74 73 Respiratory Rate 26 H 27 H Respiratory Effort Short of Breath Labored Respiratory Depth Shallow Respiratory Pattern Tachypnea Normal Blood Pressure 187/116 H Blood Pressure Mean 139 Blood Pressure Source Blood Pressure Position Blood Pressure Location Pulse Ox 88 98 Oxygen Delivery Method Nasal Cannula Nasal Cannula Oxygen Flow Rate (L/min) 3 3 Fraction of Inspired Oxygen (FIO2) 40 07/28/23 15:39 07/28/23 14:46 07/28/23 15:46 Temperature 97.8 F 98.1 F Temperature Source Temporal Temporal Pulse Rate 75 74 71 Respiratory Rate 23 H 26 H 18 Respiratory Effort Respiratory Depth Respiratory Pattern Blood Pressure 147/78 H 144/87 H 147/87 H Blood Pressure Mean 101 106 107 Blood Pressure Source Blood Pressure Position Blood Pressure Location Pulse Ox 99 88 100 Oxygen Delivery Method Bi-pap Nasal Cannula Bi-pap Oxygen Flow Rate (L/min) 3 Fraction of Inspired Oxygen (FIO2) 07/28/23 16:00 07/28/23 16:00 07/28/23 17:40 Temperature 98.1 F Temperature Source Temporal Pulse Rate 70 77 75 Respiratory Rate 20 H 20 H 33 H Respiratory Effort Respiratory Depth Respiratory Pattern Normal Blood Pressure 150/90 H 140/86 H Blood Pressure Mean 110 104 Blood Pressure Source Blood Pressure Position Blood Pressure Location Pulse Ox 100 100 96 Oxygen Delivery Method Room Air Room Air Oxygen Flow Rate (L/min) Fraction of Inspired Oxygen (FIO2) 40 07/28/23 17:00 07/28/23 17:00 07/28/23 18:30 Temperature 97.7 F L Temperature Source Temporal Pulse Rate 77 77 74 Respiratory Rate 22 H 22 H 24 H Respiratory Effort Respiratory Depth Respiratory Pattern Tachypnea Blood Pressure 155/81 H 155/81 H Blood Pressure Mean 105 105 Blood Pressure Source Blood Pressure Position Blood Pressure Location Pulse Ox 100 100 98 Oxygen Delivery Method Bi-pap Bi-pap Oxygen Flow Rate (L/min) Fraction of Inspired Oxygen (FIO2) 30 07/28/23 18:00 07/28/23 18:00 07/28/23 20:00 Temperature 98.1 F 98.9 F Temperature Source Temporal Oral Pulse Rate 77 71 70 Respiratory Rate 18 20 H 23 H Respiratory Effort Respiratory Depth Respiratory Pattern Blood Pressure 171/99 H 171/99 H 150/70 H Blood Pressure Mean 123 123 96 Blood Pressure Source Blood Pressure Position Blood Pressure Location Pulse Ox 97 100 99 Oxygen Delivery Method Bi-pap Room Air Bi-pap Oxygen Flow Rate (L/min) Fraction of Inspired Oxygen (FIO2) 07/28/23 21:00 07/28/23 19:00 07/28/23 21:30 Temperature 98.8 F 97.8 F 98.1 F Temperature Source Temporal Temporal Pulse Rate 73 74 69 Respiratory Rate 23 H 18 23 H Respiratory Effort Respiratory Depth Respiratory Pattern Blood Pressure 164/86 H 162/90 H 161/92 H Blood Pressure Mean 112 114 115 Blood Pressure Source Blood Pressure Position Blood Pressure Location Pulse Ox 98 97 99 Oxygen Delivery Method Bi-pap Bi-pap Oxygen Flow Rate (L/min) Fraction of Inspired Oxygen (FIO2) 07/28/23 19:01 07/28/23 19:15 07/28/23 19:30 Temperature Temperature Source Pulse Rate 71 74 69 Respiratory Rate 20 H 18 28 H Respiratory Effort Respiratory Depth Respiratory Pattern Blood Pressure 162/90 H 159/92 H Blood Pressure Mean 110 109 Blood Pressure Source Blood Pressure Position Blood Pressure Location Pulse Ox 98 97 99 Oxygen Delivery Method Oxygen Flow Rate (L/min) Fraction of Inspired Oxygen (FIO2) 07/28/23 19:45 07/28/23 20:00 07/28/23 20:15 Temperature Temperature Source Pulse Rate 71 71 70 Respiratory Rate 23 H 22 H 23 H Respiratory Effort Respiratory Depth Respiratory Pattern Blood Pressure 147/87 H 155/107 H 150/70 H Blood Pressure Mean 106 119 90 Blood Pressure Source Blood Pressure Position Blood Pressure Location Pulse Ox 99 98 99 Oxygen Delivery Method Oxygen Flow Rate (L/min) Fraction of Inspired Oxygen (FIO2) 07/28/23 20:30 07/28/23 20:45 07/28/23 21:00 Temperature Temperature Source Pulse Rate 71 73 Respiratory Rate 21 H 23 H 50 H Respiratory Effort Respiratory Depth Respiratory Pattern Blood Pressure 142/83 H 164/80 H 173/110 H Blood Pressure Mean 102 104 129 Blood Pressure Source Blood Pressure Position Blood Pressure Location Pulse Ox 98 Oxygen Delivery Method Oxygen Flow Rate (L/min) Fraction of Inspired Oxygen (FIO2) 07/28/23 22:00 07/28/23 21:15 07/28/23 21:30 Temperature 98.8 F Temperature Source Temporal Pulse Rate 75 248 H Respiratory Rate 18 26 H 50 H Respiratory Effort Respiratory Depth Respiratory Pattern Blood Pressure 153/89 H 169/92 H 161/92 H Blood Pressure Mean 110 114 111 Blood Pressure Source Blood Pressure Position Blood Pressure Location Pulse Ox 99 89 99 Oxygen Delivery Method Bi-pap Oxygen Flow Rate (L/min) Fraction of Inspired Oxygen (FIO2) 07/28/23 21:45 07/28/23 22:00 07/28/23 22:58 Temperature 98.4 F Temperature Source Oral Pulse Rate 108 H 75 79 Respiratory Rate 15 18 18 Respiratory Effort Respiratory Depth Respiratory Pattern Blood Pressure 152/101 H 153/89 H 161/88 H Blood Pressure Mean 115 107 112 Blood Pressure Source Monitor Blood Pressure Position Supine Blood Pressure Location Right Arm Pulse Ox 97 99 94 Oxygen Delivery Method Nasal Cannula Oxygen Flow Rate (L/min) 2 Fraction of Inspired Oxygen (FIO2) 07/28/23 23:19 07/28/23 23:21 07/28/23 23:16 Temperature Temperature Source Pulse Rate 79 79 Respiratory Rate Respiratory Effort Respiratory Depth Respiratory Pattern Blood Pressure 161/88 H 161/88 H Blood Pressure Mean Blood Pressure Source Blood Pressure Position Blood Pressure Location Pulse Ox 98 Oxygen Delivery Method Nasal Cannula Oxygen Flow Rate (L/min) 2 Fraction of Inspired Oxygen (FIO2) 07/28/23 22:58 07/28/23 23:00 07/29/23 01:25 Temperature 98.4 F Temperature Source Oral Pulse Rate 79 73 Respiratory Rate 18 31 H Respiratory Effort Normal Non-Labored Respiratory Depth Normal Respiratory Pattern Normal Tachypnea Blood Pressure 161/88 H Blood Pressure Mean 112 Blood Pressure Source Blood Pressure Position Blood Pressure Location Pulse Ox 94 97 Oxygen Delivery Method Nasal Cannula Nasal Cannula Oxygen Flow Rate (L/min) 2 2 Fraction of Inspired Oxygen (FIO2) 30 Weight Weight: 238 lb 8.642 oz Body Mass Index (BMI) 34.2 Physical Exam Narrative General: Alert, Oriented x3, Cooperative, mild to moderate respiratory distress HEENT: Atraumatic, PERRLA, EOMI, Normocephalic Oral: Moist Mucosa Neck: Supple, No JVD Lungs: Diminished, Normal air movement, No rhonchi, No wheeze, rales, tachypnea Cardiovascular: Regular rate and rhythm, Normal S1, Normal S2, No murmurs Abdomen: Soft, Non Tender, Non-Distended, No Hepato-splenomegaly Extremities: Edema, Capillary Refill Less than 3 Seconds Skin: No rashes, No breakdown Musculoskeletal: No Tenderness to Palpation of Joints or Extremities Neurological: No focal neurological deficits, Motor Exam 5/5 strength throughout, Sensory exam intact to light touch and pain Psych/Mental Status: Normal Affect, appropriate Results Lab / Micro Data 07/28/23 15:27 07/28/23 15:27 Labs: Laboratory Results - last 24 hr 07/28/23 15:27: WBC 8.8, RBC 3.80 L, Hgb 10.1 L, Hct 33.3 L, MCV 87.6, MCH 26.6 L, MCHC 30.3 L, RDW Std Deviation 57.8 H, RDW Coeff of Thao 18.5 H, Plt Count 311, MPV 9.2, Immature Gran % (Auto) 1.000 H, Neut % (Auto) 87.3 H, Lymph % (Auto) 3.5 L, Alpine % (Auto) 6.6, Eos % (Auto) 1.0, Baso % (Auto) 0.6, Absolute Neuts (auto) 7.7, Absolute Lymphs (auto) 0.31 L, Nucleated RBC % 0, DifferentialComment SEE COMMENT, Platelet Estimate ADEQUATE, RBC Morphology N CHROM, Anisocytosis RARE, PT 16.2 H, INR 1.3, APTT 27.7, Sodium 141, Potassium 3.9, Chloride 109 H, Carbon Dioxide 25.0, Anion Gap 7, BUN 43 H, Creatinine 1.95 H, Estim Creat Clear Calc 47.04, Est GFR (MDRD) Af Amer 44 L, Est GFR (MDRD) Non-Af37 L, BUN/Creatinine Ratio 22.1 H, Glucose 211 H, Calcium 10.1, Total Bilirubin 0.80, Direct Bilirubin 0.43 H, AST 16, ALT 25, Alkaline Phosphatase 68, TroponinI High Sens 28, B-Natriuretic Peptide 388.4 H, Total Protein 7.4, Albumin 3.4, Globulin 4.0 07/28/23 23:02: POC Glucose 97 ABG Data ABG results: ABG 07/28/23 15:24 Specimen Type ART Sample Site R Radial pH 7.33 L Bicarbonate Actual 24.0 Total CO2 25 Base Excess -2 O2 Saturation 79 L O2 % 50.0 ABG pCO2 45.4 H ABG pO2 47 L Art Test Positive Respiration Rate 12 O2 Delivery Device BiPAP Vent Mode BiLevel Clinical Comments Imaging Radiology Impression Chest X-Ray 07/28/23 15:30 IMPRESSION: Right perihilar interstitial infiltrate in pleural reaction Electronically Signed: Jimmy Portillo MD at 16:50 EDT , Chest CTA 07/28/23 16:09 IMPRESSION: Small bilateral pleural effusions and mild edema or interstitial infiltrates. Coronary artery disease. Pacer. Bilateral adrenal adenomas. Electronically Signed: Jimmy Portillo MD at 20:29 EDT , Assessment & Plan Assessment/Plan (1) Acute hypoxemic respiratory failure: (2) CHF (congestive heart failure): PLAN: Plan 1. Acute hypoxic respiratory failure secondary to acute on chronic diastolic CHF/CAD status post stent/essential HTN/HLD/pulmonary hypertension/paroxysmal A-fib with sick sinus syndrome status post pacemaker/FAVIAN ? Continue with BiPAP and Lasix ? Blood pressures are stable, continue with his home medications ? Continue with Plavix, it appears that he was discontinued on his aspirin secondary to GI bleeding ? Continue with ranolazine ? He does wear BiPAP at night for sleep apnea but he does not usually require itduring the day ? We will monitor make adjustments as necessary 2. Hypercalcemia secondary to hyperparathyroidism ? She was post to have a parathyroidectomy however it appears that he is had to have multiple stents placed and therefore continue with dual antiplatelet therapy ? Will continue with his Cinacalcet 3. DM2 ? Used to be on Trulicity, and his A1c improved A1c in May was 6.8 4. GERD ? Stable ? Continue with PPI 5. Anxiety/depression ? Stable ? Continue with Paxil DVT: Heparin 75 minutes was spent on direct patient care, including documentation as well as chart review and collaboration with colleagues Charges/Coding Visit Charges Inpatient E&M: 94738 Init Hosp L3 07/29/23 0332 <Electronically signed by Narendra Schwartz MD> Cosigner Signature (if applicable): CC: Dr. Mery Raymond MD; Dr. Narendra Schwartz MD~ Signed [facility] Work Phone: [phone] Discharge summary Author Harinder Woods [facility] July 28, 2023 11:07pm Note Date/Time July 28, 2023 3:3 2pm [facility] Medical Records Department [address] [place] [address] Emergency Department Summary 07/28/23 MR#: [id number] Acct: [id number] Name: SHADE TEIXEIRA Rep #:[id number] : [id number] 67 From: Harinder Max PCP: Dr. Mery Raymond MD Status:A DM IN Location: [address] History of Present Illness Chief Complaint: Shortness of Breath Informant: patient Narrative Narrative: 67-year-old male history of chronic kidney disease congestive heart failure coronary artery disease and diabetes presenting with dyspnea. Patient states that he woke yesterday morning with shortness of breath that is progressively gotten worse. He noticed increased lower extremity swelling. He states he wears BiPAP at night. He has a history of A-fib but is not fully anticoagulated. He takes Plavix and aspirin. He denies any current chest pain. Patient wears oxygen as needed at night. [facility] Medical History Abnormal chest xray Acquired left ventricular hypertrophy Acute midline thoracic back pain Adult failure to thrive Alcohol abuse Ambulates with cane Anemia Anxiety Anxiety and depression Arthritis Arthritis Asthma Atherosclerosis of coronary artery of [place] heart without angina pectoris Atrial fibrillation Back pain Benign essential HTN BiPAP (biphasic positive airway pressure) dependence Cardiology follow-up encounter Chest pain Chest pain Chronic hypoxemic respiratory failure Chronic pain of both knees Chronic wound of head Colon cancer screening Congestive heart failure Congestive heart failure (CHF) COPD (chronic obstructive pulmonary disease) Dark stools Debility Depression Depression Diabetes Dietary restriction Dizziness MEANS (dyspnea on exertion) DVT (deep venous thrombosis) Dyspnea on exertion Fall Fatigue Gastric ulcer GERD (gastroesophageal reflux disease) GI bleed Health care maintenance Heart failure with preserved ejection fraction Hepatitis History of diverticulitis History of DVT (deep vein thrombosis) History of echocardiogram History of edema History of GI bleed History of pulmonary embolism History of renal disease History of stress test History of ulceration Hypercalcemia Hyperlipidemia Hyperparathyroidism Hypertension Hypertriglyceridemia Hypotension Hypoxia Injury of head and neck Insomnia Intermittent chest pain Irregular heart beat Lives in half-way Loss of hearing Morbid obesity with BMI of 40.0-44.9, adult Near syncope Non-smoker Obesity Olecranon bursitis FAVIAN (obstructive sleep apnea) Osteoarthritis Osteopenia Presence of permanent cardiac pacemaker Pressure ulcer Primary hyperparathyroidism Pulmonary embolism Pure hypercholesterolemia Renal insufficiency Sciatica Secondary pulmonary hypertension Seizures Shortness of breath Shortness of breath on exertion Sick sinus syndrome Stage 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 disease (CKD) Thyroid disease Tinnitus of both ears Type 2 diabetes mellitus Uses wheelchair Vertigo Vitamin D deficiency Wears glasses Home Medications Handicap Placard #1 ea 04/08/20 [Rx Last Taken Unknown] flash glucose scanning reader ([employer] Tiffanie 2 Riparius) #1 ea 02/16/21 [Rx Last Taken Unknown] pen needle, diabetic 32 gauge x 5/32 (BD Ultra-Fine Lorie Pen Needle) #360 ea 04/08/22 [Rx Last Taken Unknown] clopidogrel 75 mg tablet 75 mg PO DAILY BLOOD THINNER #90 tabs 10/03/22 [Rx Last Taken 07/12/23] fenofibrate micronized 200 mg capsule 200 mg PO DAILY cholesterol #30 caps 10/20/22 [Rx Last Taken Unknown] losartan 25 mg tablet 25 mg PO DAILY blood pressure #90 tabs 12/08/22 [Rx Last Taken 06/19/23] ranolazine 500 mg tablet,extended release,12 hr 500 mg PO BID chest pain #180 tabs 12/20/22 [Rx Last Taken 06/19/23] blood sugar diagnostic ([employer] Verio test strips) #100 ea 03/07/23 [Rx Last Taken Unknown] cinacalcet 30 mg tablet 30 mg PO BID hypercalcemia #60 tabs 03/07/23 [Rx Last Taken Unknown] albuterol sulfate 90 mcg/actuation aerosol inhaler 2 puff inhalation Q6H PRN shortness of breath or wheezing 04/14/23 [History Last Taken Unknown] amlodipine 5 mg tablet 10 mg PO QHS blood pressure 04/14/23 [History Last Taken 06/19/23] nitroglycerin 0.4 mg sublingual tablet 0.4 mg sublingual Q5M PRN chest pain 04/14/23 [History Last Taken Unknown] flash glucose sensor ([employer] Tiffanie 2 Sensor kit) #2 ea 04/15/23 [Rx Last Taken Unknown] ferrous sulfate 325 mg (65 mg iron) tablet 325 mg PO DAILY supplement #90 tabs 05/19/23 [Rx Last Taken Unknown] furosemide 40 mg tablet 40 mg PO DAILY water pill #30 tabs 05/19/23 [Rx Last Taken Unknown] paroxetine HCl 40 mg tablet 40 mg PO DAILY mood #30 tabs 05/19/23 [Rx Last Taken Unknown] pantoprazole 40 mg tablet,delayed release 40 mg PO DAILY #90 tabs 06/01/23 [Rx Last Taken Unknown] potassium chloride 20 mEq tablet,extended release(part/cryst) 20 meq PO BID 06/07/23 [History Last Taken Unknown] lidocaine 5 % topical patch 1 patch topical DAILY #15 ea 06/08/23 [Rx Last Taken Unknown] metoprolol succinate 50 mg tablet,extended release 24 hr 50 mg PO Q12H blood pressure #60 tabs 06/12/23 [Rx Last Taken 06/19/23] oxycodone 5 mg tablet 5 mg PO Q4H PRN PRN Pain Score 6-10 3 days #7 tabs 06/20/23 [Rx Last Taken Unknown] polyethylene glycol 3350 17 gram oral powder packet 17 g PO DAILY #0 ea 06/20/23[Rx Last Taken Unknown] sennosides 8.6 mg-docusate sodium 50 mg tablet (Stool Softener-Stimulant Laxative) 2 tab PO BID #0 tabs 06/20/23 [Rx Last Taken Unknown] dulaglutide 1.5 mg/0.5 mL subcutaneous pen injector (Trulicity) 1.5 mg subcut QWEEK 07/11/23 [History Last Taken Unknown] sucralfate 1 gram tablet 1 g PO 4X/DAY 07/11/23 [History Last Taken 07/13/23] hydralazine 25 mg tablet 25 mg PO TID #90 tabs 07/19/23 [Rx Last Taken Unknown] Allergy/AdvReac Type Severity Reaction Status Date / Time No Known Allergies Allergy Verified 07/28/23 14:40 Family History Mother Colon cancer Sister CAD (coronary artery disease) CABG x 5 Diabetes Myocardial infarction, Onset Age: 67 Father Crohns disease Surgical History History of appendectomy History of appendectomy 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) History of cardiac catheterization History of coronary artery stent placement (10/21/22) History of eye surgery History of hip replacement History of intestinal surgery History of knee surgery History of tonsillectomy and adenoidectomy Social History household members: none housing: apartment other: Hx working in [employer] and [employer]. Smoking Status: Never smoker second hand exposure: Yes alcohol intake: former year quit: 2003 details: Sober since 2003. substance use type: former substance user Date of last use: 04/10/2004 and marijuana caffeine: Yes Type: carbonated beverages Number of servings: 2 and coffee Number of servings: 2 what type of physical activity do you participate in: none ROS ROS ED Constitutional Constitutional ED: Denies chills, fever(s) or weight loss Eyes Eyes: Denies change in vision or diplopia ENT ENT ED: Denies ear pain, rhinorrhea or sore throat Cardiovascular Cardiovascular: Denies chest pain, orthopnea, palpitations or racing heartbeat Respiratory/Chest Respiratory/Chest: Reports dyspnea and dyspnea on exertion; Denies cough or orthopnea Gastrointestinal Gastrointestinal: Denies abdominal pain, diarrhea, nausea or vomiting Genitourinary Genitourinary ED: Denies dysuria, hematuria or urinary frequency Musculoskeletal Musculoskeletal: Denies arthralgias or myalgias Integumentary Reports other Details: Leg swelling ; Denies abscess or rash Neurologic Neurologic: Denies headache(s) or weakness Psychiatric Psychiatric: Denies anxiety, depression, suicidal ideation or suicidal thoughts Endocrine Endocrinology: Denies polydipsia, polyphagia or polyuria Allergic/Immunologic Allergic/Immunologic ED: Denies mouth swelling, tongue swelling or urticaria EXAM Physical Exam Const Vital Signs: 07/28/23 14:39 07/28/23 14:39 07/28/23 15:20 Temperature 97.8 F Temperature Source Temporal Pulse Rate 74 73 Respiratory Rate 26 H 27 H Respiratory Effort Short of Breath Labored Respiratory Depth Shallow Respiratory Pattern Tachypnea Normal Blood Pressure 187/116 H Blood Pressure Mean 139 Pulse Ox 88 98 Oxygen Delivery Method Nasal Cannula Nasal Cannula Oxygen Flow Rate (L/min) 3 3 Fraction of Inspired Oxygen (FIO2) 40 07/28/23 15:39 07/28/23 14:46 07/28/23 15:46 Temperature 97.8 F 98.1 F Temperature Source Temporal Temporal Pulse Rate 75 74 71 Respiratory Rate 23 H 26 H 18 Respiratory Effort Respiratory Depth Respiratory Pattern Blood Pressure 147/78 H 144/87 H 147/87 H Blood Pressure Mean 101 106 107 Pulse Ox 99 88 100 Oxygen Delivery Method Bi-pap Nasal Cannula Bi-pap Oxygen Flow Rate (L/min) 3 Fraction of Inspired Oxygen (FIO2) 07/28/23 16:00 07/28/23 16:00 07/28/23 17:40 Temperature 98.1 F Temperature Source Temporal Pulse Rate 70 77 75 Respiratory Rate 20 H 20 H 33 H Respiratory Effort Respiratory Depth Respiratory Pattern Normal Blood Pressure 150/90 H 140/86 H Blood Pressure Mean 110 104 Pulse Ox 100 100 96 Oxygen Delivery Method Room Air Room Air Oxygen Flow Rate (L/min) Fraction of Inspired Oxygen (FIO2) 40 07/28/23 17:00 07/28/23 17:00 07/28/23 18:30 Temperature 97.7 F L Temperature Source Temporal Pulse Rate 77 77 74 Respiratory Rate 22 H 22 H 24 H Respiratory Effort Respiratory Depth Respiratory Pattern Tachypnea Blood Pressure 155/81 H 155/81 H Blood Pressure Mean 105 105 Pulse Ox 100 100 98 Oxygen Delivery Method Bi-pap Bi-pap Oxygen Flow Rate (L/min) Fraction of Inspired Oxygen (FIO2) 30 07/28/23 18:00 07/28/23 18:00 Temperature 98.1 F Temperature Source Temporal Pulse Rate 77 71 Respiratory Rate 18 20 H Respiratory Effort Respiratory Depth Respiratory Pattern Blood Pressure 171/99 H 171/99 H Blood Pressure Mean 123 123 Pulse Ox 97 100 Oxygen Delivery Method Bi-pap Room Air Oxygen Flow Rate (L/min) Fraction of Inspired Oxygen (FIO2) Positive well nourished, well developed and obese General Appearance ED: well developed Nutritional Appearance: obese HEENT Reports normocephalic, head/scalp atraumatic and moist mucous membranes Eyes PERRL and EOMs intact bilaterally Neck no lymphadenopathy, supple and no JVD Resp Resp Narrative: Patient is tachypneic with short shallow breaths and respiratory accessory muscle use Auscultation: rales bilateral lower and diminished lung sounds bilateral lower Cardio no murmurs Rhythm: abnormal rhythm irregularly irregular GI normal to inspection, nondistended, normoactive bowel sounds and non-tender Palpation: soft Back/Spine no CVA tenderness and normal ROM Extremity General Extremety ED: Yes edema General Extremity: edema bilateral lower extremity Neuro oriented x3 and CN's II-XII intact bilaterally Sensorium / Orientation: alert Motor Exam: strength 5/5 throughout Psych mental status grossly normal Mood & Affect: Negative for depressed or tearful Skin no rashes or lesions noted and no wounds MDM MDM MDM Narrative Medical decision making narrative: Due to the patient's respiratory distress she was placed on BiPAP which is significantly helping him. ABG was obtained shows a pH of 7.33 pCO2 of 45 PaO2 of 46.9 on 50% FiO2 HCO3 24. EKG appears to show atrial fibrillation at a rate of 79 bpm. Troponin 28 BNP 388.4 my independent interpretation of the chest x-ray is pulmonary edema with fluid in the fissures. Creatinine 1.95 which is stable for him. INR 1.3 with PTT of 27.7. Because of the patient's symptomology and his atrial fibrillation while not on anticoagulants a CTA of the chest was obtained. This is negative for pulmonary embolism. Does show small pleural effusions changes consistent with pulmonary edema patient receivedIV Lasix. I attempted to take him off of BiPAP but he became tachypneic again. He has to be placed back on the BiPAP. Her plan will be admission. History & Record Review Discussion w/independent historian: Patient Additional record(s) reviewed:: Prior inpatient record and Prior labs Lab Data Attestation: I reviewed the patient's lab results. Labs: Laboratory Results - last 24 hr 07/28/23 15:27 WBC 8.8 RBC 3.80 L Hgb 10.1 L Hct 33.3 L MCV 87.6 MCH 26.6 L MCHC 30.3 L RDW Std Deviation 57.8 H RDW Coeff of Thao 18.5 H Plt Count 311 MPV 9.2 Immature Gran % (Auto) 1.000 H Neut % (Auto) 87.3 H Lymph % (Auto) 3.5 L Alpine % (Auto) 6.6 Eos % (Auto) 1.0 Baso % (Auto) 0.6 Absolute Neuts (auto) 7.7 Absolute Lymphs (auto) 0.31 L Nucleated RBC % 0 Differential Comment SEE COMMENT Platelet Estimate ADEQUATE RBC Morphology N CHROM Anisocytosis RARE PT 16.2 H INR 1.3 APTT 27.7 Sodium 141 Potassium 3.9 Chloride 109 H Carbon Dioxide 25.0 Anion Gap 7 BUN 43 H Creatinine 1.95 H Estim Creat Clear Calc 47.04 Est GFR (MDRD) Af Amer 44 L Est GFR (MDRD) Non-Af 37 L BUN/Creatinine Ratio 22.1 H Glucose 211 H Calcium 10.1 Total Bilirubin 0.80 Direct Bilirubin 0.43 H AST 16 ALT 25 Alkaline Phosphatase 68 Troponin I High Sens 28 B-Natriuretic Peptide 388.4 H Total Protein 7.4 Albumin 3.4 Globulin 4.0 ABG Data ABG results: ABG 07/28/23 15:24 Specimen Type ART Sample Site R Radial pH 7.33 L Bicarbonate Actual 24.0 Total CO2 25 Base Excess -2 O2 Saturation 79 L O2 % 50.0 ABG pCO2 45.4 H ABG pO2 47 L Art Test Positive Respiration Rate 12 O2 Delivery Device BiPAP Vent Mode BiLevel Clinical Comments Radiography Diagnostic Testing: Clinical Impression(s) from Imaging Studies Chest X-Ray 07/28/23 15:30 IMPRESSION: Right perihilar interstitial infiltrate in pleural reaction Electronically Signed: Jimmy Portillo MD at 16:50 EDT , Chest CTA 07/28/23 16:09 IMPRESSION: Small bilateral pleural effusions and mild edema or interstitial infiltrates. Coronary artery disease. Pacer. Bilateral adrenal adenomas. Electronically Signed: Jimmy Portillo MD at 20:29 EDT , EKG Initial EKG: Attestation: I personally reviewed and interpreted this EKG as follows: Discharge Plan Dx/Rx/DC Orders Clinical Impression: Type 2 diabetes mellitus, CHF (congestive heart failure), Acute hypoxemic respiratory failure, Renal insufficiency Disposition Disposition: Acute Care Hospital [facility] What to do if you have Problems For any increased pain, shortness of breath, bleeding, nausea or vomiting, chestpain, or any unexpected problems, contact your Primary Care Provider. Call [facility] ([phone]) or report to the closest Emergency Room. Call 911 if necessary. 07/28/232306 <Electronically signed by Harinder Woods DO> Cosigner Signature (if applicable): CC: Dr. Mery Raymond MD ~ Signed [facility] Work Phone: [phone] Discharge summary Author Reed Wolf [facility] July 20, 2023 5:33pm Note Date/Time July 20, 2023 3:4 4pm [facility] Medical Records Department [address] [place] [id number] Emergency Department Summary 07/20/23 MR#: [id number] Acct: [id number] Name: SHADE TEIXEIRA Rep #:[id number] : 1955 67 From: Reed Wolf MD PCP: Dr. Mery Raymond MD Status:R EG ER Location: ED HPI HPI - Fall History of Present Illness Chief Complaint: Fall Detail of Chief Complaint: Fall carrying groceries from door to kitchen Informant: patient Occured/Mechanism Occurred: Today Narrative: Patient states she just dropped. Had no symptoms. Patient had a [employer] pacemaker placed within the past month for sick sinus syndrome. Pain/Injury Location: Patient states he hit his head on a cardboard box. He points to the right Pain Location: none Worsened by: Nothing Relieved by: Nothing Associated Symptoms Associated Symptoms: Positive for Weakness; Negative for Parasthesias, Loss of function, Inability to ambulate, Loss of consciousness or Amnesia Narrative Narrative: Patient is a 67-year-old male. He has multiple medical problems which include sick sinus syndrome, essential primary hypertension, long-term antithrombotic use, chronic anemia, stage IIIb chronic kidney disease, hyperlipidemia, primary hyperparathyroidism, pure hypercholesterolemia. Patient does have 3 stents thatwere placed last year. He is morbidly obese with a BMI of 44.9. Patient denies fever, chills night sweats. Patient denies headache. Patient has double vision blurred vision loss of vision. Patient has chronic bilateral tinnitus. Patient denies epistaxis. Patient denies trouble with speech or swallowing. Patient denies chest pain, orthopnea [place] exertion. He denies abdominal pain. Denies black or maroon-colored stool. He denies dysuria, frequency, urgency or hematuria. Tetanus Immunization: 5-10 years Prior similar symptoms: Yes Recent Illness/Hospitalization: No PFSH PFSH Medical History Abnormal chest xray Acquired left ventricular hypertrophy Acute midline thoracic back pain Adult failure to thrive Alcohol abuse Ambulates with cane Anemia Anxiety Anxiety and depression Arthritis Arthritis Asthma Atherosclerosis of coronary artery of [place] heart without angina pectoris Atrial fibrillation Back pain Benign essential HTN BiPAP (biphasic positive airway pressure) dependence Cardiology follow-up encounter Chest pain Chest pain Chronic hypoxemic respiratory failure Chronic pain of both knees Chronic wound of head Colon cancer screening Congestive heart failure Congestive heart failure (CHF) COPD (chronic obstructive pulmonary disease) Dark stools Debility Depression Depression Diabetes Dietary restriction Dizziness MEANS (dyspnea on exertion) DVT (deep venous thrombosis) Dyspnea on exertion Fall Fatigue Gastric ulcer GERD (gastroesophageal reflux disease) GI bleed Health care maintenance Heart failure with preserved ejection fraction Hepatitis History of diverticulitis History of DVT (deep vein thrombosis) History of echocardiogram History of edema History of GI bleed History of pulmonary embolism History of renal disease History of stress test History of ulceration Hypercalcemia Hyperlipidemia Hyperparathyroidism Hypertension Hypertriglyceridemia Hypotension Hypoxia Injury of head and neck Insomnia Intermittent chest pain Irregular heart beat Lives in half-way Loss of hearing Morbid obesity with BMI of 40.0-44.9, adult Near syncope Non-smoker Obesity Olecranon bursitis FAVIAN (obstructive sleep apnea) Osteoarthritis Osteopenia Presence of permanent cardiac pacemaker Pressure ulcer Primary hyperparathyroidism Pulmonary embolism Pure hypercholesterolemia Renal insufficiency Sciatica Secondary pulmonary hypertension Seizures Shortness of breath Shortness of breath on exertion Sick sinus syndrome Stage 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 disease (CKD) Thyroid disease Tinnitus of both ears Type 2 diabetes mellitus Uses wheelchair Vertigo Vitamin D deficiency Wears glasses Home Medications Handicap Placard #1 ea 04/08/20 [Rx Last Taken Unknown] flash glucose scanning reader ([employer] Tiffanie 2 Riparius) #1 ea 02/16/21 [Rx Last Taken Unknown] pen needle, diabetic 32 gauge x 5/32 (BD Ultra-Fine Lorie Pen Needle) #360 ea 04/08/22 [Rx Last Taken Unknown] clopidogrel 75 mg tablet 75 mg PO DAILY BLOOD THINNER #90 tabs 10/03/22 [Rx Last Taken 07/12/23] fenofibrate micronized 200 mg capsule 200 mg PO DAILY cholesterol #30 caps 10/20/22 [Rx Last Taken Unknown] losartan 25 mg tablet 25 mg PO DAILY blood pressure #90 tabs 12/08/22 [Rx Last Taken 06/19/23] ranolazine 500 mg tablet,extended release,12 hr 500 mg PO BID chest pain #180 tabs 12/20/22 [Rx Last Taken 06/19/23] blood sugar diagnostic (OneTouch Verio test strips) #100 ea 03/07/23 [Rx Last Taken Unknown] cinacalcet 30 mg tablet 30 mg PO BID hypercalcemia #60 tabs 03/07/23 [Rx Last Taken Unknown] albuterol sulfate 90 mcg/actuation aerosol inhaler 2 puff inhalation Q6H PRN shortness of breath or wheezing 04/14/23 [History Last Taken Unknown] amlodipine 5 mg tablet 10 mg PO QHS blood pressure 04/14/23 [History Last Taken 06/19/23] nitroglycerin 0.4 mg sublingual tablet 0.4 mg sublingual Q5M PRN chest pain 04/14/23 [History Last Taken Unknown] flash glucose sensor ([employer] Tiffanie 2 Sensor kit) #2 ea 04/15/23 [Rx Last Taken Unknown] ferrous sulfate 325 mg (65 mg iron) tablet 325 mg PO DAILY supplement #90 tabs 05/19/23 [Rx Last Taken Unknown] furosemide 40 mg tablet 40 mg PO DAILY water pill #30 tabs 05/19/23 [Rx Last Taken Unknown] paroxetine HCl 40 mg tablet 40 mg PO DAILY mood #30 tabs 05/19/23 [Rx Last Taken Unknown] pantoprazole 40 mg tablet,delayed release 40 mg PO DAILY #90 tabs 06/01/23 [Rx Last Taken Unknown] potassium chloride 20 mEq tablet,extended release(part/cryst) 20 meq PO BID 06/07/23 [History Last Taken Unknown] lidocaine 5 % topical patch 1 patch topical DAILY #15 ea 06/08/23 [Rx Last Taken Unknown] metoprolol succinate 50 mg tablet,extended release 24 hr 50 mg PO Q12H blood pressure #60 tabs 06/12/23 [Rx Last Taken 06/19/23] oxycodone 5 mg tablet 5 mg PO Q4H PRN PRN Pain Score 6-10 3 days #7 tabs 06/20/23 [Rx Last Taken Unknown] polyethylene glycol 3350 17 gram oral powder packet 17 g PO DAILY #0 ea 06/20/23[Rx Last Taken Unknown] sennosides 8.6 mg-docusate sodium 50 mg tablet (Stool Softener-Stimulant Laxative) 2 tab PO BID #0 tabs 06/20/23 [Rx Last Taken Unknown] dulaglutide 1.5 mg/0.5 mL subcutaneous pen injector (Trulicity) 1.5 mg subcut QWEEK 07/11/23 [History Last Taken Unknown] sucralfate 1 gram tablet 1 g PO 4X/DAY 07/11/23 [History Last Taken 07/13/23] hydralazine 25 mg tablet 25 mg PO TID #90 tabs 07/19/23 [Rx Last Taken Unknown] Allergy/AdvReac Type Severity Reaction Status Date / Time No Known Allergies Allergy Verified 07/20/23 14:29 Family History Mother Colon cancer Sister CAD (coronary artery disease) CABG x 5 Diabetes Myocardial infarction, Onset Age: 67 Father Crohns disease Surgical History History of appendectomy History of appendectomy 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) History of cardiac catheterization History of coronary artery stent placement (10/21/22) History of eye surgery History of hip replacement History of intestinal surgery History of knee surgery History of tonsillectomy and adenoidectomy Social History household members: none housing: apartment other: Hx working in [employer] and [employer]. Smoking Status: Never smoker second hand exposure: Yes alcohol intake: former year quit: 2003 details: Sober since 2003. substance use type: former substance user Date of last use: 04/10/2004 and marijuana caffeine: Yes Type: carbonated beverages Number of servings: 2 and coffee Number of servings: 2 what type of physical activity do you participate in: none ROS ROS ED Constitutional Constitutional ED: Denies chills, fever(s), subjective, sweats or weight loss Eyes Eyes: Denies blurry vision, change in vision or diplopia ENT ENT ED: Reports other Details: Bilateral tinnitus ; Denies ear pain, rhinorrhea or sore throat Cardiovascular Cardiovascular: Denies chest pain, orthopnea, palpitations, paroxysmal nocturnaldyspnea or racing heartbeat Respiratory/Chest Respiratory/Chest: Reports dyspnea on exertion and other Details: Dyspnea with walking is chronic and has been present for months. ; Denies cough, dyspnea, orthopnea, paroxysmal nocturnal dyspnea or sputum Gastrointestinal Gastrointestinal: Denies abdominal pain, constipation, diarrhea, melena, nausea or vomiting Genitourinary Genitourinary ED: Denies dysuria, hematuria or urinary frequency Musculoskeletal Musculoskeletal: Denies arthralgias, back pain, myalgias or neck pain Integumentary Denies rash Neurologic Neurologic: Reports weakness; Denies headache(s) or paresthesias Psychiatric Psychiatric: Denies anxiety Hematologic/Lymphatic Hematologic/Lymphatic: Denies easy bleeding or easy bruising EXAM Physical Exam Const Vital Signs: 07/20/23 14:25 07/20/23 16:25 07/20/23 14:35 Temperature 98 F Temperature Source Temporal Pulse Rate 69 70 Respiratory Rate 14 24 H Respiratory Effort Normal Non-Labored Respiratory Depth Normal Respiratory Pattern Normal Blood Pressure 134/71 H 143/81 H Blood Pressure Mean 92 101 Pulse Ox 100 94 Oxygen Delivery Method Room Air Room Air Room Air Positive well nourished, well developed, obese and unkempt General Appearance ED: unkempt, well developed and NAD Nutritional Appearance: obese HEENT Reports normocephalic and TM's normal bilaterally HEENT Narrative: There is no hemotympanum. There is no CSF otorrhea or rhinorrhea. There is no septal deviation hematoma. Patient has a tunde above his right brow which she states has been present for some time. atraumatic Eyes PERRL and EOMs intact bilaterally General Eye ED: Negative for pale conjunctiva or scleral icterus Neck full ROM, no lymphadenopathy and supple Neck Narrative: Negative carotid bruit on the right or left. Chest Wall inspection of chest normal and palpation of chest normal Resp normal respiratory effort, no retractions and clear to auscultation bilaterally Cardio regular rate, regular rhythm, S1 normal heart sound, S2 normal heart sound and no murmurs GI non-tender, non-distended and no masses Auscultation: normoactive bowel sounds Palpation: soft Back/Spine Cervical Spine: Negative for cervical spine tenderness Thoracic Spine / Upper Back: Negative for ROM limited, pain with ROM or thoracicspinal tenderness Lumbar Spine / Lower Back: Negative for lumbar spinal tenderness Extremity Extremity Narrative: Bilateral pitting edema. There is no asymmetry, discoloration, leg vein distention, palpable cords tenderness on the distribution deep venous system. Patient has thickened toenails and stigmata of peripheral arterial disease. Neuro oriented x3, CN's II-XII intact bilaterally, moves all extremities, no focal motor deficits and no sensory deficits noted Webb Coma Scale: document GCS findings Spontaneous Obeys Commands Oriented 15 Sensorium / Orientation: alert Psych Appearance: unkempt Mood & Affect: depressed Skin Lesions: no lesions Rashes: no rashes MDM MDM MDM Narrative Medical decision making narrative: Will have pacemaker interrogated determine if there is any dysrhythmia that could have caused patient's to fall. Baseline blood work was obtained to assessfor anemia electrolyte abnormality worsening renal failure hyperkalemia. History & Record Review Additional record(s) reviewed:: Prior outpatient record, Prior ED visit and Prior labs Lab Data Attestation: I reviewed the patient's lab results. Lab results narrative: CBC is remarkable for anemia. Patient has chronic anemia and values are unchanged from prior. BMP reveals mild hypokalemia. BUN and creatinine are elevated 54 and 1.9, this is baseline. Glucose slightly elevated 135. CO2 and anion gap are normal. Labs: Laboratory Results - last 24 hr 07/20/23 15:38 WBC 9.7 RBC 3.88 L Hgb 10.0 L Hct 32.5 L MCV 83.8 MCH 25.8 L MCHC 30.8 L RDW Std Deviation 50.4 H RDW Coeff of Thao 16.7 H Plt Count 290 MPV 9.5 Immature Gran % (Auto) 0.800 Neut % (Auto) 82.6 H Lymph % (Auto) 4.5 L Alpine % (Auto) 9.8 Eos % (Auto) 1.8 Baso % (Auto) 0.5 Absolute Neuts (auto) 8.0 H Absolute Lymphs (auto) 0.44 L Nucleated RBC % 0 Differential Comment SEE COMMENT Platelet Estimate ADEQUATE RBC Morphology NORM C+C Anisocytosis RARE Sodium 139 Potassium 3.2 L Chloride 108 H Carbon Dioxide 25.0 Anion Gap 6 BUN 54 H Creatinine 1.90 H Est GFR (MDRD) Af Amer 46 L Est GFR (MDRD) Non-Af 38 L BUN/Creatinine Ratio 28.4 H Glucose 135 H Calcium 9.7 EKG Initial EKG: Attestation: I personally reviewed and interpreted this EKG as follows: Interpretation: Paced (Patient has pacer spikes noted. There also appearsto be intrinsic rhythm which is sinus in mechanism. Rate is 72. There is decreased anterior force. There is ST-T wave abnormalities noted. Will need old EKG for comparison. MA interval is 186 ms. QRS duration 100 ms. QT duration 414 ms. Axi) Treatment and Re-Evaluation Narrative: Pacemaker was interrogated. No abnormality noted. Therefore will discharge to home since patient's at baseline. Discharge Plan Triage Chief Complaint: Fall ED Provider: Reed Wolf Dx/Rx/DC Orders Clinical Impression: Fall against object, Hypertriglyceridemia, Stage 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 disease (CKD), Antiplatelet or antithrombotic long-term use, Lower extremity edema, Generalized weakness, Type 2 diabetes mellitus, MEANS (dyspnea on exertion) Instructions: ED Fall with Uncertain Cause Prescriptions: No Action (DME) Handicap Placard See Rx Instructions .ROUTE .MEDSUPPLY Qty: 1 0RF Rx Instructions: As directed, length of time 3 years (DME) FreeStyle Tiffanie 2 Riparius Misc See Rx Instructions .ROUTE .MEDSUPPLY Qty: 1 0RF Rx Instructions: As directed (DME) OneTouch Verio test strips Strip See Rx Instructions .ROUTE .MEDSUPPLY Qty: 100 12RF Rx Instructions: test 3 times daily cinacalcet 30 mg tablet 30 mg PO BID Qty: 60 8RF nitroglycerin 0.4 mg tablet, sublingual 0.4 mg sublingual Q5M PRN (Reason: chest pain) Rx Instructions: do not exceed 3 doses per episode albuterol sulfate 90 mcg/actuation HFA aerosol inhaler 2 puff inhalation Q6H PRN (Reason: shortness of breath or wheezing) amlodipine 5 mg tablet 10 mg PO QHS (DME) FreeStyle Tiffanie 2 Sensor Kit See Rx Instructions .ROUTE .MEDSUPPLY Qty: 2 6RF Rx Instructions: As directed potassium chloride 20 mEq tablet,ER particles/crystals 20 meq PO BID Patient Comments: TAKE ONE (1) TABLET BY MOUTH TWICE DAILY FOR POTASSIUM lidocaine 5 % Adhesive Patch,Medicated 1 patch topical DAILY Qty: 15 1RF Protocol: *Topical Application Instructions APPLICATION INSTRUCTIONS: Right knee Rx Instructions: For use on right knee polyethylene glycol 3350 17 gram Powder In Packet 17 g PO DAILY Qty: 0 0RF sennosides-docusate sodium [Stool Softener-Stimulant Laxat] 8.6-50 mg Tablet 2 tab PO BID Qty: 0 0RF oxycodone 5 mg Tablet 5 mg PO Q4H PRN PRN (Reason: Pain Score 6-10) 3 Days Qty: 7 0RF Trulicity 1.5 mg/0.5 mL pen injector 1.5 mg subcut QWEEK sucralfate 1 gram tablet 1 g PO 4X/DAY (DME) pen needle, diabetic [BD Ultra-Fine Lorie Pen Needle] 32 gauge x 5/32 needle See Rx Instructions .ROUTE .MEDSUPPLY Qty: 360 5RF Rx Instructions: 4x/day clopidogrel 75 mg tablet 75 mg PO DAILY Qty: 90 3RF fenofibrate micronized 200 mg capsule 200 mg PO DAILY Qty: 30 12RF losartan 25 mg tablet 25 mg PO DAILY Qty: 90 3RF Hold Instructions: until you see nephrology ranolazine 500 mg tablet extended release 12 hr 500 mg PO BID Qty: 180 3RF ferrous sulfate 325 mg (65 mg iron) tablet 325 mg PO DAILY Qty: 90 1RF furosemide 40 mg tablet 40 mg PO DAILY Qty: 30 1RF paroxetine HCl 40 mg tablet 40 mg PO DAILY Qty: 30 1RF pantoprazole 40 mg tablet,delayed release (DR/EC) 40 mg PO DAILY Qty: 90 1RF metoprolol succinate 50 mg tablet extended release 24 hr 50 mg PO Q12H Qty: 60 11RF hydralazine 25 mg tablet 25 mg PO TID Qty: 90 2RF Primary Care Provider: Mrey Raymond Referrals: Mery Raymond MD [Primary Care Provider] - 3-5 Days Disposition Disposition: Home, Self Care What to do if you have Problems For any increased pain, shortness of breath, bleeding, nausea or vomiting, chestpain, or any unexpected problems, contact your Primary Care Provider. Call [facility] ([phone]) or report to the closest Emergency Room. Call 911 if necessary. 07/20/23 172 <Electronically signed by Reed Wolf MD> Cosigner Signature (if applicable): CC: Dr. Mery Raymond MD ~ Signed ADDENDUM by Dr. Reed Wolf MD on 07/20/23 at 1733 Patient was informed that he was going home. His only concern was he did not have transportation. I informed him that the nurse would help with transportation home. I was informed at 1731 that patient informed the nurse, Jeanne, that he does not feel safe going home alone. Order for ambulation was placed. 07/20/23 173<Electronically signed by Reed Wolf MD> Cosigner Signature (if applicable): cc: Dr. Mery Raymond MD ~* Signed [facility] Work Phone: 1(930) 218-718304-04-2024 History and physical note Author Louie Friend [facility] July 13, 2023 7:33am Note Date/Time July 13, 2023 7:33 am [facility] Medical Records Department [address] [place] [address] History & Physical Exam 07/13/23 0733 MR#: [id number] Acct: [id number] Name: SHADE TEIXEIRA Praveen Rep #:[id number] : 1955 67 From: Louie Friend DO PCP: Dr. Mery Raymond MD Status:R EG SDC Location: [place] [address] History and Physical Date of Admission: 07/13/23 SHADE TEIXEIRA, is a 67 M who presents to the office today for *[facility] hospitalization 02.26.23-03.03.23 for management of GIB and CHF with HF with preserved ejection fraction. ? 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 ? 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 H.Pylori neg. [facility] hospitalization 03.13.23-03.18.23 for ongoing GIB with anemia requiring PRBC transfusion with chronic conditions DMII, CAD, CKD III. ? CT abd/pel 03.13.23 bilateral adrenal nodules; renal calculi; renal cysts; small fatty umbilical hernia ? 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 ? 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 OV 04.18.23 feeling better since hospitalization. Has been having some constipation difficulty recently with start of iron tablet and oxycodone PRN; hewill be establishing with pain management through palliative care. ROS Const Constitutional: Positive for weight change ( NURSE WANTED PATIENT TO MENTION WEIGHT LOSS); No body ache, chills, excessive sweating, fatigue, fever(s), frequent falls, headache(s), snoring, weakness, sleep problems or change in appetite Eyes Eyes: No blurry vision, change in vision or Light sensitivity ENT ENT: Positive for dizziness/vertigo; No abnormal hearing, ear or mastoid pain, tinnitus, nasal congestion, nasal discharge, headache(s), neck pain or sore throat Resp Respiratory: No cough, shortness of breath, snoring or wheezing Cardio Cardiology: No chest pain at rest, chest pain with exertion, excessive sweating,shortness of breath, dyspnea on exertion, lightheadedness, orthopnea or palpitations Gastro GI: Positive for other (PATIENT REPORTS APPETITE IS OKAY; EATS WHEN HUNGRY); No abdominal pain, change in bowel habits, constipation, cramping, diarrhea or nausea/dyspepsia Genitourinary Male: No burning urination, painful urination, urinary incontinence or urinary frequency Musc Musculoskeletal: Positive for joint pain (BILATERAL SHOULDERS AND KNEE PAIN); No abnormal gait, back pain, limited range of motion, muscle weakness, neck painor numbness Skin Skin: No dry skin, redness, lesions, itchy eyes, rash or wounds Neuro Neurology: No abnormal gait, abnormal hearing, weakness, frequent falls, headache(s), memory loss or numbness Psych Psychiatric: No anxiety, No change in appetite, No depression, No memory loss, No panic attacks and No Thoughts of harming yourself/Others Endo Endocrine: Positive for weight change ( NURSE WANTED PATIENT TO MENTION WEIGHTLOSS); No cold intolerance, excessive sweating, fatigue, flushing, heat intolerance, increased thirst/drinking or increased hunger Aller/Imm Allergy/Immunologic: No itchy eyes, seasonal allergy symptoms, hives or wheezing Exam Const General: cooperative, healthy appearing, comfortable, no acute distress, well developed and well groomed Nutritional Appearance: obese Orientation: alert, awake and oriented x3 [facility] Head: normocephalic and atraumatic Ears: hearing grossly normal bilaterally Nose: external nose normal Mouth: moist mucous membranes Eyes Alignment and Position: alignment normal Periorbital: periorbital findings normal Neck Neck: full ROM and no lymphadenopathy Neck mass: No Thyroid: thyroid normal Resp Effort & Inspection: normal respiratory effort, able to speak in complete sentences, symmetric chest movement, no audible wheezes and no cough Auscultation: Bilateral: Clear to Auscultation Cardio Rate: regular rate Rhythm: regular rhythm (not in a-fib at this time) Heart Sounds: S1 normal, S2 normal and no murmurs GI Inspection: obesity Auscultation: normal bowel sounds Skin General: turgor normal and no pallor Rashes: no rashes Neuro General: patient alert, patient awake and patient oriented x3 Cognition: normal cognition Speech: speech normal Motor: muscle tone normal throughout Extrem General: edema Laterality: bilateral Severity: pitting and 2+ Psych Appearance: grossly normal Mental Status: mental status grossly normal Mood: congruent mood Affect: normal affect Speech and Movement: speech and movement normal Attitude: cooperative Thought Process: normal Judgment: judgment good Quality Reporting Tobacco Screening ([facility] 138) Smoking Status: Never smoker Assessment and Plan Assessment and Plan (1) GI bleed: Status: Resolved Qualifiers: GI bleed type/associated pathology: unspecified gastrointestinal hemorrhage type Qualified Code(s): K92.2 - Gastrointestinal hemorrhage, unspecified Plan: 67-year-old gentleman past medical history of CKD stage IIIb, acute on chronic anemia, CAD status post PTCA with stents, atrial fibrillation, secondary pulmonary pretension who I saw in the hospital for acute recurrent GI bleeding secondary to gastric ulcer. Gastric ulcer was negative for intestinal metaplasia, dysplasia, cancer or H. pylori. He had 2 clips placed to a centralized ulcer at the base of the antrum. His antiplatelet therapy was stopped. He was placed on PPI therapy and Carafate therapy. He is active doingvery well and his hemoglobin has increased from 7.4-10.9 with administration of iron therapy. Patient is okay with repeating upper endoscopy to make sure his gastric ulcer has healed to the point where he will not need any supplemental medicine such as sulcal fate and he be safe to go back on antiplatelet therapy. Orders: Orders EGD 05/22/23 K92.2 - Gastrointestinal hemorrhage, unspecified I have examined the patient and the H&P has been reviewed. There are no clinicalchanges since date of exam. 07/13/23 6639 <Electronically signed by Louie Gonzales DO> Cosigner Signature (if applicable): CC: Dr. Mery Raymond MD; Louie Gonzales DO~ Signed [facility] Work Phone: 1(520) 605-395604-04-2024 Procedure [facility] 07-13-2023 Procedure [facility]03-12-2024 Progress note Author Kingsley Hollis [facility] June 20, 2023 4:42pm Note Date/Time June 20, 2023 7:5 7am [facility] Medical Records Department [address] [place] [address] [place] [address] Progress Note - Hospitalist 06/20/23 9055 MR#: [id number] Acct: [id number] Name: SHADE TEIXEIRA Rep #:[id number] : 1955 67 From: Kingsley Deal PCP: Dr. 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 (06/19/23) Objective Data Objective Data Vital Signs: Vital Signs Temp Pulse Resp BP Pulse Ox O2 Del Method O2 Flow Rate 98.5 F 85 18 165/98 H 97 Nasal Cannula 2 06/20/23 06:20 06/20/23 06:38 06/20/23 06:20 06/20/23 06:38 06/20/23 06:20 06/20/23 06:20 06/20/23 06:20 Oxygen Flow Rate (L/min) 2 Oxygen Delivery Method Nasal Cannula Weight: 239 lb 3.225 oz Body Mass Index (BMI) 34.3 Intake & Output: Intake and Output for Last 24 Hours 06/18/23 06/19/23 06/20/23 23:59 23:59 23:59 Intake Total 440 / 640 500 / 500 Output Total 350 / 1350 1800 / 1800 Balance 90 / -710 -1300 / -1300 Lab / Micro Data 06/20/23 07:14 06/20/23 07:14 Radiography Diagnostic Testing: Radiology Impression Chest X-Ray 06/20/23 05:55 IMPRESSION: 1. Low lung volumes limit the exam. No consolidations. 2. No acute cardiopulmonary abnormality. Electronically Signed: Adrian Quispe MD at 5:41 EDT , Physical Exam Narrative Patient complained of joint pain in both knees and left shoulder. Asking to increase pain medication dosages. air sampling and monitoring shows paced rhythm and well capturing of heart rates. Yesterday it was sometimes A-fib. Patient has history of sick sinus syndrome with sinus pauses sometimes 5.2 seconds as per the patient. Physical exam General: Alert, Oriented x3, Cooperative HEENT: Atraumatic, PERRLA, EOMI, Normocephalic Oral: Oral mucosa moist. No Gingival or Mucosal Lesions/ Ulcerations Neck: Supple, No JVD, Negative Carotid Bruits Chest wall/Lungs: Air entry diminished in bilateral lung bases. No crepitation/rhonchi Cardiovascular: Rhythm paced, Normal S1, Normal S2, No M/G/R Abdomen: Bowel Sounds Present, Soft, Non Tender, Non-Distended : No dysuria. No renal angle tenderness. No suprapubic tenderness. Extremities: No edema, Capillary Refill Less than 3 Seconds Skin: No rashes, No breakdown Musculoskeletal: Tenderness present over bilateral knees and left shoulder. Surgical scar at both knees. ROM restricted at knees and left shoulder. Left shoulder after pacemaker on sling and swath Neurological: Cranial nerves II-XII grossly intact, DTR 2+/4. No acute focal neurological deficit. Psych/Mental Status: Normal Affect, Appropriate. Assessment & Plan Assessment/Plan (1) Essential hypertension: (2) Type 2 diabetes mellitus: QUALIFIERS: Diabetes mellitus complication status: with hyperglycemia Diabetes mellitus mcc insulin use: with termite control technician use Qualified Code(s): E11.65 - Type 2 diabetes mellitus with hyperglycemia; Z79.4 -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 (current) use of insulin (3) Pure hypercholesterolemia: (4) Sick sinus syndrome: PLAN: Plan 67-year-old gentleman was admitted for planned/elective permanent pacemaker after diagnosed sick sinus syndrome with long sinus pauses. Patient also history of A- fib 1. Perioperative management after PPM for SSS with patient requiring Lasix x 1 - Continue Lasix as already ordered. Chest x-ray was done. No acute cardiopulmonary abnormality. No consolidation. No lung volumes. BNP 467. Patient not short of breath. Potassium 3.4. Potassium replaced. 2. Essential Hypertension - Continue current regimen. 3. Hyperlipidemia - Resume statin. 4. GERD; with history of PUD - Continue PPI and Sucralfate. 5. Obesity; with BMI of 34.3 this admission and FAVIAN - Weight loss will be recommended. Continue CPAP. 6. DM-2; of unknown control - ADA diet. FSBS q. AC/HS plus SSI. 7. CKD; stage IIIb -BUNs/creatinine 26/1.89. His creatinine is within his baseline range of 1.7-2.0 8. History of DVT/PE - Noted. 9. DVT prophylaxis - As per it telecom technician. Charges/Coding Visit Charges Inpatient E&M: 73335 Subs Hosp L2 06/20/23 0901 <Electronically signed by Kingsley Hollis MD> Cosigner Signature (if applicable): CC: ~ Signed ADDENDUM by Dr. Kingsley Hollis MD on 06/20/23 at 1600 Addendum Hospitalist saw the patient is consulted. Discussed with the it telecom technician Dr. Hua with attending. Patient admitted for observation therefore does not need discharge summary. Med reconciliation was done as an assistance for the it telecom technician Dr. Hua. Patient is going to SNF. 06/20/23 1600<Electronically signed by Kingsley Hollis MD> Cosigner Signature (if applicable): cc: ~* Signed ADDENDUM by Dr. Kingsley Hollis MD on 06/20/23 at 1642 Addendum Patient was also given a prescription for oxycodone. Overdose score less than 180. Heart score 311. [facility] report checked 06/20/231641<Electronically signed by Kingsley Hollis MD> Cosigner Signature (if applicable): cc: ~* Signed [facility] Work Phone: 1(381) 990-419103-12-2024 Discharge summary Author Kingsley Hollis [facility] June 20, 2023 3:59pm Note Date/Time June 20, 2023 3:5 1pm [facility] Medical Records Department [address] [place] [id number] Transfer to Extended [facility] MR#: [id number] Acct: [id number] Name: SHADE TEIXEIRA Rep #:[id number] : 1955 67 From: Kingsley Deal PCP: Dr. Mery Raymond MD Status:A DM ZARIA Certification of patient admission REQUIRED AT TIME OF ADMISSION. I CERTIFY THAT POST-HOSPITAL ECF SERVICES ARE REQUIRED TO BE GIVEN ON AN IN-PATIENT BASIS BECAUSE OF THE ABOVE NAMED PATIENT'S NEED FOR [facility] CARE ON A CONTINUING BASIS FOR THE CONDITION(S) FOR WHICH HE/SHE WAS RECEIVING IN-PATIENT HOSPITAL SERVICES PRIOR TO HIS/HER TRANSFER TO THE [facility]. 06/20/23 2443<Electronically signed by Kingsley Hollis MD> Diet Diet Order/Speech Therapy: 06/19/23 Lunch Diet: Cardiac - Heart Healthy Routine Orders/Code Status Suppository Type: Dulcolax 10mg Suppository Frequency: Daily PRN Wound(s) left chest: Wound Type: Surgical Incision Therapies Weight Bearing: Weight bearing as tolerated Extremity Affected:: Bilateral Lower and Left Upper Physical Therapy: Eval and Treat Occupational Therapy: Eval and Treat Speech Therapy: Eval and Treat Problem/Diagnosis (1) Essential hypertension: Status: Acute Code(s): I10 - Essential (primary) hypertension (2) Type 2 diabetes mellitus: Status: Chronic Code(s): E11.9 - Type 2 diabetes mellitus without complications (3) Pure hypercholesterolemia: Status: Chronic Code(s): E78.00 - Pure hypercholesterolemia, unspecified (4) Sick sinus syndrome: Status: Acute Code(s): I49.5 - Sick sinus syndrome Plan 67-year-old gentleman was admitted for planned/elective permanent pacemaker after diagnosed sick sinus syndrome with long sinus pauses. Patient also history of A- fib 1. Perioperative management after PPM for SSS with patient requiring Lasix x 1 - Continue Lasix as already ordered. Chest x-ray was done. No acute cardiopulmonary abnormality. No consolidation. No lung volumes. BNP 467. Patient not short of breath. Potassium 3.4. Potassium replaced. 2. Essential Hypertension - Continue current regimen. 3. Hyperlipidemia - Resume statin. 4. GERD; with history of PUD - Continue PPI and Sucralfate. 5. Obesity; with BMI of 34.3 this admission and FAVIAN - Weight loss will be recommended. Continue CPAP. 6. DM-2; of unknown control - ADA diet. FSBS q. AC/HS plus SSI. 7. CKD; stage IIIb -BUNs/creatinine 26/1.89. His creatinine is within his baseline range of 1.7-2.0 8. History of DVT/PE - Noted. 9. DVT prophylaxis - As per it telecom technician. Allergies/Procedures Done in Hospital Allergies No Known Allergies Allergy (Verified 06/07/23 03:28) Type of Care/Length of Stay Estimated LOS: Convalescent Care Less Than 30 days Type of Care Needed: Skilled Rehab Potential: Good Prognosis: Good Additional Orders/Day of Discharge Day of Discharge: 06/20/23 Dietary and Speech Recommendations Dietitian Recommendations/Changes: continue cardiac diet as tolerated, ONS if POintake at meals fails Follow Up Care Please Follow Up With: Robb Hua MD Discharge Plan Admission Admit Date/Time: 06/19/23 12:15 Primary Reason for Your Visit: SSS, S/P pacemaker Attending Provider: Robb Hua Primary Care Provider: Mery Raymond Consulting Providers: Kingsley Hollis Discharge Orders/Prescriptions Prescriptions: New polyethylene glycol 3350 17 gram Powder In Packet 17 g PO DAILY Qty: 0 0RF sennosides-docusate sodium [Stool Softener-Stimulant Laxat] 8.6-50 mg Tablet 2 tab PO BID Qty: 0 0RF Continued (DME) Handicap Placard See Rx Instructions .ROUTE .MEDSUPPLY Qty: 1 0RF Rx Instructions: As directed, length of time 3 years (DME) FreeStyle Tiffanie 2 Riparius Misc See Rx Instructions .ROUTE .MEDSUPPLY Qty: 1 0RF Rx Instructions: As directed (DME) OneTouch Verio test strips Strip See Rx Instructions .ROUTE .MEDSUPPLY Qty: 100 12RF Rx Instructions: test 3 times daily cinacalcet 30 mg tablet 30 mg PO BID Qty: 60 8RF nitroglycerin 0.4 mg tablet, sublingual 0.4 mg sublingual Q5M PRN (Reason: chest pain) Rx Instructions: do not exceed 3 doses per episode albuterol sulfate 90 mcg/actuation HFA aerosol inhaler 2 puff inhalation Q6H PRN (Reason: shortness of breath or wheezing) amlodipine 5 mg tablet 10 mg PO DAILY (DME) compress.stocking,knee,reg,lrg Misc See Rx Instructions .ROUTE .MEDSUPPLY Qty: 2 0RF Rx Instructions: Apply first thing in AM before ambulation (DME) FreeStyle Tiffanie 2 Sensor Kit See Rx Instructions .ROUTE .MEDSUPPLY Qty: 2 6RF Rx Instructions: As directed hydralazine 25 mg tablet 25 mg PO TID Qty: 90 2RF Ozempic 1 mg/dose (4 mg/3 mL) pen injector 1 mg SUBCUT QWEEK Patient Comments: INJECT 1MG (0.75ML) SUBCUTANEOUSLY EVERY WEEK potassium chloride 20 mEq tablet,ER particles/crystals 20 meq PO BID Patient Comments: TAKE ONE (1) TABLET BY MOUTH TWICE DAILY FOR POTASSIUM lidocaine 5 % Adhesive Patch,Medicated 1 patch topical DAILY Qty: 15 1RF Protocol: *Topical Application Instructions APPLICATION INSTRUCTIONS: Right knee Rx Instructions: For use on right knee oxycodone 5 mg Tablet 5 mg PO Q4H PRN PRN (Reason: Pain Score 6-10) 3 Days Qty: 7 0RF (DME) pen needle, diabetic [BD Ultra-Fine Lorie Pen Needle] 32 gauge x 5/32 needle See Rx Instructions .ROUTE .MEDSUPPLY Qty: 360 5RF Rx Instructions: 4x/day clopidogrel 75 mg tablet 75 mg PO DAILY Qty: 90 3RF fenofibrate micronized 200 mg capsule 200 mg PO DAILY Qty: 30 12RF losartan 25 mg tablet 25 mg PO DAILY Qty: 90 3RF Hold Instructions: until you see nephrology ranolazine 500 mg tablet extended release 12 hr 500 mg PO BID Qty: 180 3RF ferrous sulfate 325 mg (65 mg iron) tablet 325 mg PO DAILY Qty: 90 1RF furosemide 40 mg tablet 40 mg PO DAILY Qty: 30 1RF paroxetine HCl 40 mg tablet 40 mg PO DAILY Qty: 30 1RF pantoprazole 40 mg tablet,delayed release (DR/EC) 40 mg PO DAILY Qty: 30 0RF Rx Instructions: recently decreased from BID pantoprazole 40 mg tablet,delayed release (DR/EC) 40 mg PO DAILY Qty: 90 1RF sucralfate 1 gram tablet 1 g PO .QID 90 Days Qty: 360 1RF sucralfate 1 gram tablet 1 g PO .QID 30 Days Qty: 120 0RF metoprolol succinate 50 mg tablet extended release 24 hr 50 mg PO Q12H Qty: 60 11RF Referrals / Follow Up: Robb Hua MD [Med Staff - Active Staff] - Within 1 Month Mery Raymond MD [Primary Care Provider] - Disposition Disposition (needs filled in before D/C Order can be placed): Group Home Facility (2) Type 2 diabetes mellitus Qualifiers: Diabetes mellitus termite control technician insulin use: with mcc use Diabetes mellituscomplication status: with hyperglycemia Qualified Code(s): E11.65 - Type 2 diabetes mellitus with hyperglycemia; Z79.4 - longterm (current) use of insulin 06/20/23 5126 <Electronically signed by Kingsley Hollis MD> Cosigner Signature (if applicable): CC: Dr. Robb Hua MD; Dr. Mery Raymond MD; Dr. Kingsley Hollis MD ~ [facility] Work Phone: 1(128) 241-401803-12-2024 Discharge summary Author Robb Hua [facility] June 20, 2023 8:55am Note Date/Time June 20, 2023 8:5 5am [facility] Medical Records Department [address] [place] [address] Instructions for Home/Discharge Instructions 06/20/23 0854 MR#: [id number] Acct: [id number] Name: SHADE TEIXEIRA Rep #:[id number] : 1955 67 From: Robb Hua MD PCP: Dr. Mery Raymond MD Status:A DM ZARIA Discharge Instructions Diet Discharge Diet: No restrictions (as you feel able. No excessive stretching. No lifting your arm over your head (keep elbow below shoulder level) until seen foryour pacemaker check. Do not lift your elbow away from your side until you are seen for your first visit. Keep the arm sling on if it helps remind you not to lift your arm.) Activity Discharge Activity: May Not Drive May shower in (days): 2 Additional Activity Instructions:: May shower or bathe on [day 3]. Do not scrub the incision or soak in the tub. Just wash with soap and let the water run over the incision. Gently pat dry with towel. Medications: Take your pain medication as directed. Refer to your discharge instruction sheet for a list of medications you are to take. Dressing / Incision Call your doctor if your incision/area has: Continuous Slow Oozing, Sudden Increased Bleeding, Increased Pain/ Swelling, Increased Redness, Foul Smelling Discharge and Swelling at the incision site Call your doctor if you observe: Fever of 101 or Higher, Shortness of breath, Dizziness, Fainting spells, Swelling in the ankles, Chest pain, Prolonged hiccupping and Increased palpitations (irregular heartbeat) Suture Line Care: Avoid Pulling/Pushing and Avoid Pinching/Bending Additional Dressing/Incision Instructions:: When dressing is removed, wash and dry incision. Keep covered with a light bandage if it is rubbing against your clothing. Do not cover the incision with an airtight bandage. Change the bandagedaily. Do not remove steri strips. The strips will fall off on their own. Follow Up Care Please Follow Up With: Robb Hua MD When: Pacemaker follow-up on June 26 at 9:30 AM. At the pacemaker clinic at the [facility]. Test Results: Test results from this visit will be discussed in further detail at your follow- up appointment, if applicable. Discharge Plan Admission Admit Date/Time: 06/19/23 12:15 Attending Provider: Robb Hua Primary Care Provider: Mery Raymond Consulting Providers: Kingsley Hollis Discharge Orders/Prescriptions Prescriptions: No Action (DME) Handicap Placard See Rx Instructions .ROUTE .MEDSUPPLY Qty: 1 0RF Rx Instructions: As directed, length of time 3 years (DME) FreeStyle Tiffanie 2 Riparius Misc See Rx Instructions .ROUTE .MEDSUPPLY Qty: 1 0RF Rx Instructions: As directed (DME) OneTouch Verio test strips Strip See Rx Instructions .ROUTE .MEDSUPPLY Qty: 100 12RF Rx Instructions: test 3 times daily cinacalcet 30 mg tablet 30 mg PO BID Qty: 60 8RF nitroglycerin 0.4 mg tablet, sublingual 0.4 mg sublingual Q5M PRN (Reason: chest pain) Rx Instructions: do not exceed 3 doses per episode albuterol sulfate 90 mcg/actuation HFA aerosol inhaler 2 puff inhalation Q6H PRN (Reason: shortness of breath or wheezing) amlodipine 5 mg tablet 10 mg PO DAILY (DME) compress.stocking,knee,reg,lrg Misc See Rx Instructions .ROUTE .MEDSUPPLY Qty: 2 0RF Rx Instructions: Apply first thing in AM before ambulation (DME) FreeStyle Tiffanie 2 Sensor Kit See Rx Instructions .ROUTE .MEDSUPPLY Qty: 2 6RF Rx Instructions: As directed hydralazine 25 mg tablet 25 mg PO TID Qty: 90 2RF Ozempic 1 mg/dose (4 mg/3 mL) pen injector 1 mg SUBCUT QWEEK Patient Comments: INJECT 1MG (0.75ML) SUBCUTANEOUSLY EVERY WEEK oxycodone 5 mg Tablet 5 mg PO Q4H PRN PRN (Reason: Pain Score 6-10) 3 Days Qty: 20 0RF potassium chloride 20 mEq tablet,ER particles/crystals 20 meq PO BID Patient Comments: TAKE ONE (1) TABLET BY MOUTH TWICE DAILY FOR POTASSIUM lidocaine 5 % Adhesive Patch,Medicated 1 patch topical DAILY Qty: 15 1RF Protocol: *Topical Application Instructions APPLICATION INSTRUCTIONS: Right knee Rx Instructions: For use on right knee (DME) pen needle, diabetic [BD Ultra-Fine Lorie Pen Needle] 32 gauge x 5/32 needle See Rx Instructions .ROUTE .MEDSUPPLY Qty: 360 5RF Rx Instructions: 4x/day clopidogrel 75 mg tablet 75 mg PO DAILY Qty: 90 3RF fenofibrate micronized 200 mg capsule 200 mg PO DAILY Qty: 30 12RF losartan 25 mg tablet 25 mg PO DAILY Qty: 90 3RF Hold Instructions: until you see nephrology ranolazine 500 mg tablet extended release 12 hr 500 mg PO BID Qty: 180 3RF ferrous sulfate 325 mg (65 mg iron) tablet 325 mg PO DAILY Qty: 90 1RF furosemide 40 mg tablet 40 mg PO DAILY Qty: 30 1RF paroxetine HCl 40 mg tablet 40 mg PO DAILY Qty: 30 1RF pantoprazole 40 mg tablet,delayed release (DR/EC) 40 mg PO DAILY Qty: 30 0RF Rx Instructions: recently decreased from BID pantoprazole 40 mg tablet,delayed release (DR/EC) 40 mg PO DAILY Qty: 90 1RF sucralfate 1 gram tablet 1 g PO .QID 90 Days Qty: 360 1RF sucralfate 1 gram tablet 1 g PO .QID 30 Days Qty: 120 0RF metoprolol succinate 50 mg tablet extended release 24 hr 50 mg PO Q12H Qty: 60 11RF Referrals / Follow Up: Mery Raymond MD [Primary Care Provider] - 06/20/23 0855<Electronically signed by Robb Hua MD>Robb Hua MD CC: Dr. Mery Raymond MD; Dr. Kingsley Hollis MD ~ Signed [facility] Work Phone: 1(862) 883-117803-12-2024 Progress note Author Robb Hua [facility] June 20, 2023 8:52am Note Date/Time June 20, 2023 8:5 2am [facility] Medical Records Department [address] [place] [address] Progress Note - Cardiology 06/20/23 0845 MR#: [id number] Acct: [id number] Name: SHADE TEIXEIRA Rep #:[id number] : 1955 67 From: Robb Hua MD PCP: Dr. Mery Raymond MD Status:A DM ZARIA Location: [place] [address] Subjective Subjective Patient seen and evaluated. Appears to be doing well. Objective Data Vital Signs: Vital Signs Temp Pulse Resp BP Pulse Ox O2 Del Method O2 Flow Rate 98.3 F 81 14 147/87 H 96 Nasal Cannula 1 06/20/23 08:17 06/20/23 08:24 06/20/23 08:17 06/20/23 08:17 06/20/23 08:17 06/20/23 08:17 06/20/23 08:17 Oxygen Flow Rate (L/min) 1 Oxygen Delivery Method Nasal Cannula Weight: 239 lb 3.225 oz Body Mass Index (BMI) 34.3 Intake & Output: Intake and Output for Last 24 Hours 06/18/23 06/19/23 06/20/23 23:59 23:59 23:59 Intake Total 440 / 640 500 / 500 Output Total 350 / 1350 2700 / 2700 Balance 90 / -710 -2200 / -2200 Lab / Micro Data 06/20/23 07:14 06/20/23 07:14 Labs: Laboratory Results - last 24 hr 06/20/23 07:14: WBC 9.5, RBC 4.05 L, Hgb 10.5 L, Hct 34.3 L, MCV 84.7, MCH 25.9 L, MCHC 30.6 L, RDW Std Deviation 50.1 H, RDW Coeff of Thao 16.2 H, Plt Count 313, MPV 9.4, Immature Gran % (Auto) 0.600, Neut % (Auto) 82.8 H, Lymph % (Auto)4.0 L, Alpine % (Auto) 11.0 H, Eos % (Auto) 1.1, Baso % (Auto) 0.5, Absolute Neuts(auto) 7.9 H, Absolute Lymphs (auto) 0.38 L, Nucleated RBC % 0, Sodium 141, Potassium 3.4 L, Chloride 108 H, Carbon Dioxide 27.0, Anion Gap 6, BUN 26 H, Creatinine 1.89 H, Estim Creat Clear Calc 47.42, Est GFR (MDRD) Af Amer 46 L, Est GFR (MDRD) Non-Af 38 L, BUN/Creatinine Ratio 13.8, Glucose 138 H, Calcium 10.6 H, B-Natriuretic Peptide 467.9 H Cardiology Labs/Tests 06/20/23 07:14: WBC 9.5, RBC 4.05 L, Hgb 10.5 L, Hct 34.3 L, MCV 84.7, MCH 25.9 L, MCHC 30.6 L, Plt Count 313, MPV 9.4, Immature Gran % (Auto) 0.600, Neut % (Auto) 82.8 H, Lymph % (Auto) 4.0 L, Alpine % (Auto) 11.0 H, Eos % (Auto) 1.1, Baso % (Auto) 0.5, Absolute Neuts (auto) 7.9 H, Nucleated RBC % 0, Sodium 141, Potassium 3.4 L, Chloride 108 H, Carbon Dioxide 27.0, Anion Gap 6, BUN 26 H, Creatinine 1.89 H, Est GFR (MDRD) Af Amer 46 L, Est GFR (MDRD) Non-Af 38 L, BUN/Creatinine Ratio 13.8, Glucose 138 H, Calcium 10.6 H, B-Natriuretic Peptide 467.9 H Rhythm: EKG: ECHO: Stress Test: Cardiac Cath: PCI: CT Surgery: Holter monitor: EPS: PPM: CXR: Chest CT Scan: Radiography Diagnostic Testing: Radiology Impression Chest X-Ray 06/20/23 05:55 IMPRESSION: 1. Low lung volumes limit the exam. No consolidations. 2. No acute cardiopulmonary abnormality. Electronically Signed: Adrian Quispe MD at 5:41 EDT , Assessment & Plan Assessment/Plan (1) Sick sinus syndrome: PLAN: Patient is status post permanent pacemaker implantation. Pacemaker appears to be functioning well. There is underlying atrial fibrillation. Patient be continued on rate limiting medication. X-ray demonstrates good positioning. Pacemaker interrogation demonstrates good functioning. The patient however requests that as he lives alone he wants to have a few more days of PT and OT and evaluation. Will put in for transitional care transfer. (2) Essential hypertension: PLAN: Patient has a history of hypertension. Will reinstitute current medical therapy. (3) Atherosclerosis of coronary artery of [place] heart without angina pectoris: QUALIFIERS: Coronary Disease-Associated Artery/Lesion type: nativeartery Qualified Code(s): I25.10 - Atherosclerotic heart disease of [place] coronary artery without angina pectoris PLAN: Patient has a history of atherosclerotic cardiovascular disease status post previous angioplasty and stenting. Will continue current medical therapy. 06/20/23 0852 <Electronically signed by Robb Hua MD> Cosigner Signature (if applicable): CC: ~ Signed [facility] Work Phone: 1(966) 335-592103-12-2024 Progress note Author Maeve Black [facility] June 20, 2023 5:49am Note Date/Time June 20, 2023 2:1 9am [facility] Medical Records Department [address] [place] [address] Progress Note - Hospitalist 06/20/23 0212 MR#: [id number] Acct: [id number] Name: TEIXEIRASHADE A Rep #:[id number] : 1955 67 From: Maeve Schmitz DO PCP: Dr. Mery Raymond MD Status:A DM ZARIA Location: [place] [address] Reason for Visit Reason for Visit: Diagnoses Hypokalemia (06/19/23) Sick sinus syndrome (06/19/23) Subjective Subjective I was called by the SALESPERSON FURS that patient was SOB and was in need of Lasix after arecent PPM placement. An order for Lasix was given but the hospitalist service was not on the case as the patient was admitted to the it telecom technician's service. Then when the SALESPERSON FURS spoke to the it telecom technician on-call he requested a hospitalist consult for 'medical management' with Lasix already given and patient having clinically improved with no other complaints and anticipated potential discharge in the AM. His input was 640 mL with output of 1,350 mL with a fluid balance of -710 mL and a weight of 239#. Thank you for allowing us to participate in the care of your patient. Objective Data Objective Data Vital Signs: Vital Signs Temp Pulse Resp BP Pulse Ox O2 Del Method O2 Flow Rate 97.8 F 92 26 H 149/95 H 92 Nasal Cannula 5 06/19/23 14:54 06/19/23 22:41 06/19/23 22:41 06/19/23 21:28 06/19/23 22:41 06/19/23 22:41 06/19/23 22:41 Oxygen Flow Rate (L/min) 5 Oxygen Delivery Method Nasal Cannula Weight: 239 lb 10.279 oz Body Mass Index (BMI) 34.4 Intake & Output: Intake and Output for Last 24 Hours 06/18/23 06/19/23 06/20/23 23:59 23:59 23:59 Intake Total 440 / 440 Output Total 350 / 350 Balance 90 / 90 Lab / Micro Data Attestation: I reviewed the patient's lab results. 06/12/23 13:55 Physical Exam Const alert, oriented x3 and no apparent distress Constitutional Narrative: Obese. General Appearance: cooperative Orientation / Consciousness: awake, oriented to person, oriented to place and oriented to time Nutritional Appearance: obese HEENT normocephalic and head/scalp atraumatic Head and Scalp: normal to inspection, normocephalic and atraumatic Eyes PERRL and EOMs intact bilaterally Neck full ROM and nuchal rigidity Chest Chest Narrative: Evidence of recent PPM implantation. Resp Resp Narrative: Patient has diminished breath sounds with scattered rhonci Cardio regular rate and regular rhythm GI normal to inspection, nondistended, normoactive bowel sounds, soft to palpation,non-tender and non-distended Extremity normal to inspection Skin no rashes or lesions noted Neuro oriented x3, CN's II-XII intact bilaterally, moves all extremities and no focal motor deficits Psych mental status grossly normal, thought process normal, cooperative, affect normal, speech normal and activity/motor behavior normal Assessment & Plan Assessment/Plan (1) Essential hypertension: (2) Type 2 diabetes mellitus: QUALIFIERS: Diabetes mellitus termite control technician insulin use: with termite control technician use Diabetes mellitus complication status: with hyperglycemia Qualified Code(s): E11.65 - Type 2 diabetes mellitus with hyperglycemia; Z79.4 - 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 (current) use of insulin (3) Pure hypercholesterolemia: (4) Sick sinus syndrome: PLAN: Plan 1. Medical Management Consult after PPM to treat SSS with patient requiring Lasix x 1 - Continue Lasix as already ordered. Check CXR and BNP in the AM to see if more Lasix will potentially need to be given. Also check CBC and BMP to ensure good blood counts and electrolyte levels prior to anticipated discharge. Continue other medications as per it telecom technician's plan. 2. Essential Hypertension - Continue current regimen. 3. Hyperlipidemia - Resume statin. 4. GERD; with history of PUD - Continue PPI and Sucralfate. 5. Obesity; with BMI of 34.3 this admission and FAVIAN - Weight loss will be recommended. Continue CPAP. 6. DM-2; of unknown control - ADA diet. FSBS q. AC/HS plus SSI. 7. CKD; stage IIIb - Stable. 8. History of DVT/PE - Noted. 9. DVT prophylaxis - As per it telecom technician. Total time: Approximately 35 minutes. Charges/Coding Visit Charges Inpatient E&M: 27279 Subs Hosp L2 06/20/23 0549 <Electronically signed by Maeve Noel DO> Cosigner Signature (if applicable): CC: ~ Signed [facility] Work Phone: 1([phone]) 799-367502-29-2024 Discharge summary Author Cornelia Burns [facility] June 08, 2023 12:21pm Note Date/Time June 08, 2023 12:07pm [facility] Medical Records Department [address] [place] [address] Discharge Summary 06/08/23 1206 MR#: [id number] Acct: [id number] Name: TEIXEIRASHADE A Rep #:[id number] : 1955 67 From: Cornelia Burns DO PCP: Dr. Mery Raymond MD Status:A DM ZARIA Location: [place] [address] Providers Date of Admission: 06/07/23 Date of Discharge: 06/08/23 Primary Care Physician: Dr. Mery Raymond MD Reason For Visit: R KNEE PAIN/ INABILITY TO WALK Diagnosis Discharge Diagnosis (1) Right knee sprain: Status: Acute Code(s): S83.91XA - Sprain of unspecified site of right knee, initial encounter (2) Inability to ambulate due to knee: Status: Acute Code(s): R26.2 - Difficulty in walking, not elsewhere classified (3) Generalized weakness: Status: Acute Code(s): R53.1 - Weakness (4) Hypokalemia: Status: Acute Code(s): E87.6 - Hypokalemia Plan Right knee pain with resulting inability to walk and generalized weakness/debility -As needed oxycodone -Scheduled Tylenol -Lidocaine patch -Would recommend outpatient bracing and orthopedic follow-up -PT/OT consultation -Patient is amenable to placement if need be -Consult case management and social work Chronic anemia secondary to chronic renal disease -Baseline hemoglobin appears to run between 9.5 and 11 -Currently 10.7 -Continue to monitor History of GI bleed secondary to gastric ulcer -Continue Protonix 40 mg daily -Continue home Carafate -Continue outpatient GI follow-up CKD stage IIIb -Baseline serum creatinine appears to run between 1.8 and 2.1 -Current serum creatinine is 1.8 -Continue outpatient nephrology follow-up FAVIAN -Patient with history of noncompliance CAD/HTN/HPL/secondary pulmonary hypertension -Last stent was placed in October 2022 -Continue Plavix -Continue home amlodipine -Continue home hydralazine -Continue home losartan -Continue home Ranexa -Continue Lasix -Recommend ongoing outpatient follow-up with cardiology History of DVT/PE -Remote -Not on anticoagulation due to recent GI bleeds Paroxysmal atrial fibrillation -Patient is in rate controlled A-fib currently continue home beta-robinson -Patient is not anticoagulated due to GI bleeding and will discuss at his next visit with Dr. Gonzales per cardiology documentation from 05/30/2023 DM-2 -Home agents are on hold both oral and Ozempic -Add subcu SSI every 6 hours -Accu-Cheks as ordered -Patient with recent well-controlled hemoglobin A1c at 6.4 History of hypercalcemia secondary to hyperparathyroidism -Continue home medication -Check a.m. CMP to assess calcium -Continue home cinacalcet -Continue outpatient follow-up with Dr. Urias Chronic pain -Avoid NSAIDs -As needed Tylenol available -As needed oxycodone for acute knee pain Depression/anxiety -Continue home paroxetine Obesity -Weight is 32.1 -Recommend weight loss -Complicates treatment, prognosis, outcomes DVT prophylaxis -Heparin 3 times daily CODE STATUS Full Code Medications at Discharge Home Medications Handicap Placard #1 ea 04/08/20 flash glucose scanning reader ([employer] Tiffanie 2 Riparius) #1 ea 02/16/21 pen needle, diabetic 32 gauge x 5/32 (BD Ultra-Fine Lorie Pen Needle) #360 ea 04/08/22 clopidogrel 75 mg tablet 75 mg PO DAILY BLOOD THINNER #90 tabs 10/03/22 fenofibrate micronized 200 mg capsule 200 mg PO DAILY cholesterol #30 caps 10/20/22 losartan 25 mg tablet 25 mg PO DAILY blood pressure #90 tabs 12/08/22 ranolazine 500 mg tablet,extended release,12 hr 500 mg PO BID chest pain #180 tabs 12/20/22 blood sugar diagnostic ([employer] Verio test strips) #100 ea 03/07/23 cinacalcet 30 mg tablet 30 mg PO BID hypercalcemia #60 tabs 03/07/23 albuterol sulfate 90 mcg/actuation aerosol inhaler 2 puff inhalation Q6H PRN shortness of breath or wheezing 04/14/23 amlodipine 5 mg tablet 10 mg PO DAILY blood pressure 04/14/23 nitroglycerin 0.4 mg sublingual tablet 0.4 mg sublingual Q5M PRN chest pain 04/14/23 compress.stocking,knee,reg,lrg #2 ea 04/15/23 flash glucose sensor ([employer] Tiffanie 2 Sensor kit) #2 ea 04/15/23 semaglutide 1 mg/dose (4 mg/3 mL) subcutaneous pen injector (Ozempic) 1 mg subcut QWEEK 04/26/23 oxycodone 5 mg tablet 5 mg PO Q4H PRN PRN Pain Score 6-10 3 days #20 tabs 04/29/23 ferrous sulfate 325 mg (65 mg iron) tablet 325 mg PO DAILY supplement #90 tabs 05/19/23 furosemide 40 mg tablet 40 mg PO DAILY water pill #30 tabs 05/19/23 paroxetine HCl 40 mg tablet 40 mg PO DAILY mood #30 tabs 05/19/23 metoprolol succinate 50 mg tablet,extended release 24 hr 50 mg PO Q12H blood pressure 05/30/23 hydralazine 25 mg tablet 25 mg PO TID #90 tabs 05/31/23 pantoprazole 40 mg tablet,delayed release 40 mg PO DAILY #90 tabs 06/01/23 pantoprazole 40 mg tablet,delayed release 40 mg PO DAILY Stomach #30 tabs 06/01/23 sucralfate 1 gram tablet 1 g PO .QID 90 days #360 tabs 06/01/23 sucralfate 1 gram tablet 1 g PO .QID stomach 30 days #120 tabs 06/01/23 potassium chloride 20 mEq tablet,extended release(part/cryst) 20 meq PO BID 06/07/23 lidocaine 5 % topical patch 1 patch topical DAILY #15 ea 06/08/23 Hospital Course Operations None Procedures - (X-ray right knee) Summary of Care Provided Minutes Spent on Discharge: 25 Hospital Course: Mr. Teixeira is a 67-year-old white male who presented to the emergency [facility] early on the morning of 06/07/2023 complaining of chest pain. He had extensive cardiac workup in the emergency department and wasfound to be unremarkable. He does have known coronary disease and had recent cardiac catheterization is on medical therapy and following with cardiology. Tommy was recently diagnosed with sick sinus syndrome and there is plans for pacemaker placement on Monday. I was called by the nurse practitioner from the cardiology office to assist her in coordinating care for this if the patient required placement. He was being discharged home from the emergency department but was unable to ambulate due to pain in his right knee so he came back into the emergency department stating he be needed to be placed in a nursing facilityfor rehab. He reported that he was unable to take care of himself because he lives alone and stated that he had been having ongoing knee pain for some time however on Monday he stood up and twisted and had increased pain since that timewith progressive worsening of pain in the joint. He has had previous x-rays that show R3 arthritis and moderate joint effusion. On presentation his vital signs are unremarkable. His CBC showed showed a stable normocytic anemia with mildly elevated white count of 11.6 and a left shift. He did have a monocytosisat presentation but was asymptomatic with regards to any signs of illness. His chemistry panel revealed mild hypokalemia with a potassium of 3.3 and a stable serum creatinine 1.8. His blood glucose was 176. His cardiac enzymes were cycled with an initial and delta and they were 38 and 37 respectively. He is EKG was unchanged from previous and he had no ST-T wave changes concerning for acute ischemia. Chest x-ray was unremarkable. X-ray of the right knee demonstrated degenerative arthrosis, small joint effusion and vascular calcification. Degenerative arthrosis with severe in the medial compartment andsevere in the patellofemoral articulation with only mild abnormality in the lateral femorotibial compartment. He was admitted as an observation to the medical floor in anticipation of placement. His pain was treated with scheduledTylenol and topical lidocaine as well as ice and elevation. His electrolytes were replaced. He was seen by physical and Occupational Therapy and was able tomove fairly well. He ambulated 100 feet the first day he was seen on 130 feet the second day he was seen with a wheeled walker and was deemed not appropriate for skilled rehab. I did let the nurse practitioner at his cardiology office know that he would not be placed and she stopped by to see him in the hospital to discuss pacemaker placement on Monday and was given discharge instructions with regards to pacemaker placement to be done on Monday. I have asked him to follow- up with his primary care physician within the next month and strongly advised him to see orthopedic surgery. He will not currently be a surgical candidate due to everything that is going on from a medical standpoint however in the future he may be and they may be able to do injections that may give him some temporary relief in the short-term. He will be getting outpatient home health care physical therapy and nursing services as he is currently homebound due to lack of transportation. Patient was discharged home in stable condition on 06/08/2023. Discharge diagnoses: Right knee pain secondary to osteoarthritis Small right joint effusion at the knee Chronic anemia secondary to chronic renal disease Paroxysmal atrial fib Sick sinus syndrome History of GI bleed secondary to gastric ulcer CKD stage IIIb FAVIAN CAD Hypertension Hyperlipidemia Secondary pulmonary hypertension History of DVT/PE DM-2 History of hypercalcemia secondary to hyperparathyroidism Chronic pain Depression Anxiety Obesity Physical Exam Const alert, oriented x3, no apparent distress and well nourished; Negative for average body habitus Constitutional Narrative: Obese, upper middle-aged, white male, sitting up in a chair at the bedside watching television, appears older than stated age, does not appear toxic General Appearance: cooperative, comfortable, well kempt and well developed HEENT normocephalic, head/scalp atraumatic, hearing grossly normal bilaterally and moist oral mucous membranes HEENT Narrative: Mallampati 3, no thrush Resp normal respiratory effort, no retractions, no use of accessory muscles and clearto auscultation bilaterally Auscultation: Negative for rales, rhonchi or wheezes Cardio regular rate, regular rhythm, S1 normal heart sound, S2 normal heart sound, no murmurs, no rub, no gallops and no clicks GI normal to inspection, nondistended, normoactive bowel sounds, soft to palpation and non-tender Extremity Extremity Narrative: Bilateral lower extremity edema that is pitting in 1-2+ in nature-patient statesthis is chronic, no cyanosis or clubbing, right knee with mild joint effusion and decreased active and passive range of motion, joint changes consistent with osteoarthritis Neuro oriented x3, moves all extremities and no focal motor deficits Speech: speech normal Psych affect normal Psych Narrative: Interacts appropriately, eye contact is good, patient is pleasant Weight / BMI Weight Weight: 107.9 kg Body Mass Index (BMI) 34.1 ABG / Lab / Microbiology Data 06/08/23 06:30 06/08/23 06:30 Laboratory: Laboratory Results - last 24 hr 06/07/23 16:50: POC Glucose 143 H 06/08/23 06:30: WBC 7.6, RBC 3.95 L, Hgb 10.3 L, Hct 33.7 L, MCV 85.3, MCH 26.1 L, MCHC 30.6 L, RDW Std Deviation 51.9 H, RDW Coeff of Thao 16.5 H, Plt Count 256, MPV 9.7, Immature Gran % (Auto) 0.500, Neut % (Auto) 77.0 H, Lymph % (Auto)5.1 L, Alpine % (Auto) 15.8 H, Eos % (Auto) 1.1, Baso % (Auto) 0.5, Absolute Neuts(auto) 5.9, Absolute Lymphs (auto) 0.39 L, Nucleated RBC % 0, Differential Comment SCANNED, Sodium 137, Potassium 3.3 L, Chloride 108 H, Carbon Dioxide 25.0, Anion Gap 4 L, BUN 25 H, Creatinine 1.80 H, Estim Creat Clear Calc 49.65, Est GFR (MDRD) Af Amer 49 L, Est GFR (MDRD) Non-Af 40 L, BUN/Creatinine Ratio 13.9, Glucose 171 H, Calcium 10.3 H, Phosphorus 2.3 L, Magnesium 1.8, Total Bilirubin 1.20 H, AST 16, ALT 19, Alkaline Phosphatase 59, Total Protein 6.6, Albumin 3.2, Globulin 3.4, Albumin/Globulin Ratio 0.9 06/08/23 06:49: POC Glucose 173 H Radiography Diagnostic Testing: Radiology Impression Chest X-Ray 06/07/23 03:34 IMPRESSION: No radiographic evidence of acute cardiopulmonary disease. Electronically Signed: Brown Russ MD at 4:26 EST Reading Location ID and State: [facility] / [place] Tel , Service support , D/C Instructions Discharge Diet: Low fat / Low cholesterol and 1800 Calorie Control Diet Discharge Activity: Return to Normal Activity and Use Walker Meaningful Use Info Meaningful Use Diagnoses (Choose all that apply): None applicable Discharge Plan Admission Admit Date/Time: 06/07/23 09:26 Primary Reason for Your Visit: Inability to ambulate/right knee pain Attending Provider: Cornelia Burns Primary Care Provider: Mery Raymond Instructions Patient Instructions: ED Chest Pain, Uncertain Cause Additional Instructions / Restrictions: 1. Please take Tylenol 1000 mg 3 times a day to help with your knee pain but donot exceed this amount 2. Please call to set up an appointment to see orthopedic surgery to address your pain further and obtain more definitive management 3. Use ice as needed and keep leg elevated when at rest Discharge Orders/Prescriptions Prescriptions: New lidocaine 5 % Adhesive Patch,Medicated 1 patch topical DAILY Qty: 15 1RF Protocol: *Topical Application Instructions APPLICATION INSTRUCTIONS: Right knee Rx Instructions: For use on right knee Continued (DME) Handicap Placard See Rx Instructions .ROUTE .MEDSUPPLY Qty: 1 0RF Rx Instructions: As directed, length of time 3 years (DME) FreeStyle Tiffanie 2 Riparius [facility] [place] See Rx Instructions .ROUTE .MEDSUPPLY Qty: 1 0RF Rx Instructions: As directed (DME) OneTouch Verio test strips Strip See Rx Instructions .ROUTE .MEDSUPPLY Qty: 100 12RF Rx Instructions: test 3 times daily cinacalcet 30 mg tablet 30 mg PO BID Qty: 60 8RF metoprolol succinate 50 mg tablet extended release 24 hr 50 mg PO Q12H Patient Comments: TAKE 1 TABLET BY MOUTH TWICE DAILY FOR BLOOD PRESSURE nitroglycerin 0.4 mg tablet, sublingual 0.4 mg sublingual Q5M PRN (Reason: chest pain) Rx Instructions: do not exceed 3 doses per episode albuterol sulfate 90 mcg/actuation HFA aerosol inhaler 2 puff inhalation Q6H PRN (Reason: shortness of breath or wheezing) amlodipine 5 mg tablet 10 mg PO DAILY (DME) compress.stocking,knee,reg,lrg Misc See Rx Instructions .ROUTE .MEDSUPPLY Qty: 2 0RF Rx Instructions: Apply first thing in AM before ambulation (DME) [employer] Tiffanie 2 Sensor Kit See Rx Instructions .ROUTE .MEDSUPPLY Qty: 2 6RF Rx Instructions: As directed hydralazine 25 mg tablet 25 mg PO TID Qty: 90 2RF Ozempic 1 mg/dose (4 mg/3 mL) pen injector 1 mg SUBCUT QWEEK Patient Comments: INJECT 1MG (0.75ML) SUBCUTANEOUSLY EVERY WEEK oxycodone 5 mg Tablet 5 mg PO Q4H PRN PRN (Reason: Pain Score 6-10) 3 Days Qty: 20 0RF potassium chloride 20 mEq tablet,ER particles/crystals 20 meq PO BID Patient Comments: TAKE ONE (1) TABLET BY MOUTH TWICE DAILY FOR POTASSIUM (DME) pen needle, diabetic [BD Ultra-Fine Lorie Pen Needle] 32 gauge x 5/32 needle See Rx Instructions .ROUTE .MEDSUPPLY Qty: 360 5RF Rx Instructions: 4x/day clopidogrel 75 mg tablet 75 mg PO DAILY Qty: 90 3RF fenofibrate micronized 200 mg capsule 200 mg PO DAILY Qty: 30 12RF losartan 25 mg tablet 25 mg PO DAILY Qty: 90 3RF Hold Instructions: until you see nephrology ranolazine 500 mg tablet extended release 12 hr 500 mg PO BID Qty: 180 3RF ferrous sulfate 325 mg (65 mg iron) tablet 325 mg PO DAILY Qty: 90 1RF furosemide 40 mg tablet 40 mg PO DAILY Qty: 30 1RF paroxetine HCl 40 mg tablet 40 mg PO DAILY Qty: 30 1RF pantoprazole 40 mg tablet,delayed release (DR/EC) 40 mg PO DAILY Qty: 30 0RF Rx Instructions: recently decreased from BID pantoprazole 40 mg tablet,delayed release (DR/EC) 40 mg PO DAILY Qty: 90 1RF sucralfate 1 gram tablet 1 g PO .QID 90 Days Qty: 360 1RF sucralfate 1 gram tablet 1 g PO .QID 30 Days Qty: 120 0RF Referrals / Follow Up: Robb Hua MD [Med Staff - Active Staff] - 06/16/23 8:30 am (Pacer Placed withDr. Hua. [facility] will pick patient up at 08:30 am.) Mery Raymond MD [Primary Care Provider] - Within 1 Month Stephanie Schultz PA [Med Staff - Adv Practice Prof] - 06/12/23 1:00 pm (With Lily Kearns. [facility] will pick patient up at 12:30PM. ) Disposition Disposition (needs filled in before D/C Order can be placed): Home Health Service Charges/Coding Visit Charges Inpatient E&M: 06880 Disch Hosp 06/08/23 1221 <Electronically signed by Cornelia Burns DO> Cosigner Signature (if applicable): CC: Dr. Mery Raymond MD; Dr. Cornelia Burns DO~ Signed [facility] Work Phone: [phone] 233-373702-28-2024 History and physical note Author Cornelia Burns [facility] June 07, 2023 9:51am Note Date/Time June 07, 2023 9:51am [facility] Medical Records Department [address] [place] [address] H&P Exam - Hospitalist 06/07/23917 MR#: [id number] Acct: [id number] Name: SHADE TEIXEIRA Rep #:[id number] : 1955 67 From: Cornelia Burns DO PCP: Dr. Mery Raymond MD Status:R EG ER Location: ED HPI - General General Date of Admission: 06/07/23 Date of Service: 06/07/23 Chief Complaint: Inability to ambulate secondary to right knee pain HPI Narrative SHADE TEIXEIRA, is a 67 M who presented to the emergency department at [facility] early on the morning of 06/07/2023 complaining of chest pain. Extensive chest pain workup was performed and was unremarkable. Patient has known coronary disease and had a recent cardiac catheterization and is on medical therapy. Had recent follow-up with cardiology as well. He was being discharged and was unable to ambulate due to right knee pain so he came back to the emergency department stating he needed to be placed at a nursing facility for rehab. He states he is unable to take care of himself as he lives alone. He reported that he has been having ongoing knee pain however on Monday he stoodup and twisted and has been having increased pain since then with progressive worsening of pain in the joint. Previous x-rays show significant osteoarthritiswith a moderate joint effusion. Current images are pending. The patient is willing to be placed at a facility if need be. He has never seen orthopedic surgery for this not had any intervention. His x-ray shows significant medial compartment joint narrowing as well as osteoarthritis at the patellofemoral joint. He also does appear to have lateral joint compartment narrowing as well however it does not appear to be as significant as the medial joint compartment. These are x-rays from 04/26/2023. Vital signs on presentation were unremarkable. CBC shows a stable normocytic anemia with a mildly elevated white count 11.6 and a left shift. He also does appear to have a monocytosis. His chemistry panel reveals mild hypokalemia withpotassium of 3.3 and stable serum creatinine at 1.8. Blood glucose is 126. He had a recent hemoglobin A1c on 05/31/2023 at 6.8. His cardiac enzymes were cycled with an initial and delta they were 38 and 37 respectively. His EKG is unchanged from previous with no ST-T wave changes concerning for acute ischemia. Again, all imaging is pending at this time. [facility] Medical History Abnormal chest xray Acquired left ventricular hypertrophy Acute midline thoracic back pain Adult failure to thrive Alcohol abuse Anemia Anxiety and depression Arthritis Asthma Atherosclerosis of coronary artery of [place] heart without angina pectoris Atrial fibrillation Benign essential HTN BiPAP (biphasic positive airway pressure) dependence Chest pain Chronic hypoxemic respiratory failure Chronic pain Chronic pain of both knees Chronic wound of head Colon cancer screening Congestive heart failure Congestive heart failure (CHF) Dark stools Debility Depression Depression Diabetes Dizziness MEANS (dyspnea on exertion) DVT (deep venous thrombosis) Dyspnea on exertion Essential (primary) hypertension Fall Fatigue Gastric ulcer GERD (gastroesophageal reflux disease) GI bleed Health care maintenance Hearing loss, left Hearing loss, right Heart failure with preserved ejection fraction History of DVT (deep vein thrombosis) History of pulmonary embolism Hypercalcemia Hyperlipidemia Hyperparathyroidism Hypertension Hyperthyroidism Hypertriglyceridemia Hypoxia Insomnia Intermittent chest pain Irregular heart beat Kidney stones Morbid obesity with BMI of 40.0-44.9, adult Near syncope Obesity Olecranon bursitis FAVIAN (obstructive sleep apnea) Osteoarthritis Osteopenia Primary hyperparathyroidism Pure hypercholesterolemia Renal insufficiency Sciatica Secondary pulmonary hypertension Seizures Shortness of breath Sleep apnea Stage 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 disease (CKD) Type 2 diabetes mellitus Vertigo Vision loss of left eye Vision loss of right eye Vitamin D deficiency Home Medications Handicap Placard #1 ea 04/08/20 [Rx Last Taken Unknown] flash glucose scanning reader ([employer] Tiffanie 2 Riparius) #1 ea 02/16/21 [Rx Last Taken Unknown] pen needle, diabetic 32 gauge x 5/32 (BD Ultra-Fine Lorie Pen Needle) #360 ea 04/08/22 [Rx Last Taken Unknown] cholecalciferol (vitamin D3) 1,250 mcg (50,000 unit) capsule 1,250 mcg PO QWEEK supplement #8 caps 09/07/22 [Rx Last Taken 04/22/23] clopidogrel 75 mg tablet 75 mg PO DAILY BLOOD THINNER #90 tabs 10/03/22 [Rx Last Taken 02/25/23] fenofibrate micronized 200 mg capsule 200 mg PO DAILY cholesterol #30 caps 10/20/22 [Rx Last Taken Unknown] losartan 25 mg tablet 25 mg PO DAILY blood pressure #90 tabs 12/08/22 [Rx Last Taken Unknown] ranolazine 500 mg tablet,extended release,12 hr 500 mg PO BID chest pain #180 tabs 12/20/22 [Rx Last Taken Unknown] blood sugar diagnostic ([employer] Verio test strips) #100 ea 03/07/23 [Rx Last Taken Unknown] cinacalcet 30 mg tablet 30 mg PO BID hypercalcemia #60 tabs 03/07/23 [Rx Last Taken Unknown] albuterol sulfate 90 mcg/actuation aerosol inhaler 2 puff inhalation Q6H PRN shortness of breath or wheezing 04/14/23 [History Last Taken Unknown] amlodipine 5 mg tablet 10 mg PO DAILY blood pressure 04/14/23 [History Last Taken Unknown] nitroglycerin 0.4 mg sublingual tablet 0.4 mg sublingual Q5M PRN chest pain 04/14/23 [History Last Taken Unknown] potassium chloride 20 mEq tablet,extended release 20 meq PO DAILY supplement 04/14/23 [History Last Taken Unknown] compress.stocking,knee,reg,lrg #2 ea 04/15/23 [Rx Last Taken Unknown] flash glucose sensor ([employer] Tiffanie 2 Sensor kit) #2 ea 04/15/23 [Rx Last Taken Unknown] semaglutide 1 mg/dose (4 mg/3 mL) subcutaneous pen injector (Ozempic) 1 mg subcut QWEEK 04/26/23 [History Last Taken Unknown] oxycodone 5 mg tablet 5 mg PO Q4H PRN PRN Pain Score 6-10 3 days #20 tabs 04/29/23 [Rx Last Taken Unknown] ferrous sulfate 325 mg (65 mg iron) tablet 325 mg PO DAILY supplement #90 tabs 05/19/23 [Rx Last Taken Unknown] furosemide 40 mg tablet 40 mg PO DAILY water pill #30 tabs 05/19/23 [Rx Last Taken Unknown] paroxetine HCl 40 mg tablet 40 mg PO DAILY mood #30 tabs 05/19/23 [Rx Last Taken Unknown] metoprolol succinate 50 mg tablet,extended release 24 hr 50 mg PO Q12H blood pressure 05/30/23 [History Last Taken Unknown] hydralazine 25 mg tablet 25 mg PO TID #90 tabs 05/31/23 [Rx Last Taken Unknown] pantoprazole 40 mg tablet,delayed release 40 mg PO DAILY #90 tabs 06/01/23 [Rx Last Taken Unknown] pantoprazole 40 mg tablet,delayed release 40 mg PO DAILY Stomach #30 tabs 06/01/23 [Rx Last Taken Unknown] sucralfate 1 gram tablet 1 g PO .QID 90 days #360 tabs 06/01/23 [Rx Last Taken Unknown] sucralfate 1 gram tablet 1 g PO .QID stomach 30 days #120 tabs 06/01/23 [Rx Last Taken Unknown] potassium chloride 20 mEq tablet,extended release(part/cryst) 20 meq PO BID 06/07/23 [History Last Taken Unknown] Allergy/AdvReac Type Severity Reaction Status Date / Time No Known Allergies Allergy Verified 06/07/23 03:28 Family History Mother Colon cancer Sister CAD (coronary artery disease) CABG x 5 Diabetes Myocardial infarction, Onset Age: 67 Father Crohns disease Surgical History History of appendectomy History of appendectomy 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 Smoking Status: Never smoker second hand exposure: Yes alcohol intake: former year quit: 2003 details: Sober since 2003. substance use type: former substance user Date of last use: 04/10/2004 and marijuana caffeine: Yes Type: carbonated beverages Number of servings: 2 and coffee Number of servings: 2 what type of physical activity do you participate in: none ROS Constitutional Constitutional: Reports weakness; Denies anorexia, change in weight, chills, fatigue, fever(s), malaise, night sweats or other Eyes Eyes: Denies blurry vision, change in eye color, change in vision, discharge from eye(s), double vision, erythema, eye pain, loss of vision or other ENT HEENT: Denies abnormal hearing, dysphagia, ear pain, epistaxis, headache(s), hearing loss, nasal congestion, nasal discharge, post nasal drip, sinus pressure, sore throat or other Cardiovascular Cardiovascular: Reports chest pain; Denies claudication, dyspnea on exertion, edema, lightheadedness, orthopnea, palpitations, paroxysmal nocturnal dyspnea, rapid heart rate, syncope or other Respiratory/Chest Respiratory/Chest: Denies cough, dyspnea, excessive phlegm production, hemoptysis, productive cough, shortness of breath at rest, shortness of breath with exertion, wheezing or other Gastrointestinal Gastrointestinal: Denies abdominal pain, coffee ground emesis, constipation, diarrhea, dyspepsia, hematemesis, hematochezia, loose stools, melena, nausea, vomiting or other Genitourinary Genitourinary: Denies burning urination, difficulty urinating, dysuria, hematuria, nocturia, urinary frequency, urinary hesitancy, urinary incontinence,urinary urgency or other Musculoskeletal Musculoskeletal: Reports joint pain, joint stiffness and joint swelling; Denies arthralgias, back pain, myalgias, neck pain or other Neurologic Neurologic: Reports abnormal gait; Denies abnormal speech, confusion, disequilibrium, dizziness, focal weakness, headache(s), numbness, paresthesias, seizure-like activity, seizures, syncope, tingling, tremor(s) or other Psychiatric Psychiatric: Reports anxiety and depression; Denies homicidal ideation, suicidalideation or other Endocrine Endocrinology: Denies change in body appearance, cold intolerance, excessive sweating, heat intolerance, polydipsia, polyuria or other Hematologic/Lymphatic Hematologic/Lymphatic: Denies anemia, easy bleeding, easy bruising, lymphadenopathy or other Allergic/Immunologic Allergic/Immunologic: Denies rhinitis, hives, eczemia, asthma or other Vital Signs Vital Signs Vital Signs: 06/07/23 03:22 06/07/23 03:29 06/07/23 03:49 Temperature 98.7 F Temperature Source Oral Pulse Rate 83 84 Respiratory Rate 12 Respiratory Effort Normal Respiratory Depth Normal Respiratory Pattern Normal Blood Pressure 164/86 H 152/88 H Blood Pressure Mean 112 Pulse Ox 93 Oxygen Delivery Method Room Air Room Air 06/07/23 03:51 06/07/23 03:34 06/07/23 03:55 Temperature Temperature Source Pulse Rate 77 Respiratory Rate Respiratory Effort Normal Respiratory Depth Respiratory Pattern Normal Blood Pressure 130/70 H Blood Pressure Mean Pulse Ox Oxygen Delivery Method Room Air 06/07/23 04:08 06/07/23 06:00 06/07/23 06:45 Temperature 97.8 F Temperature Source Pulse Rate 86 78 82 Respiratory Rate 18 16 Respiratory Effort Respiratory Depth Respiratory Pattern Blood Pressure 131/72 H 138/99 H 138/99 H Blood Pressure Mean 112 112 Pulse Ox 99 99 Oxygen Delivery Method Room Air 06/07/23 08:16 Temperature 97.0 F L Temperature Source Temporal Pulse Rate 75 Respiratory Rate 18 Respiratory Effort Respiratory Depth Respiratory Pattern Blood Pressure 144/90 H Blood Pressure Mean 108 Pulse Ox 98 Oxygen Delivery Method Room Air Weight Weight: 101.6 kg Body Mass Index (BMI) 32.1 Physical Exam Const alert, oriented x3, no apparent distress and well nourished; Negative for average body habitus Constitutional Narrative: Obese, upper middle-aged, white male, sitting in bed, appears older than stated age, currently appears comfortable and talking on cell phone at the time of my arrival, does not appear toxic General Appearance: cooperative HEENT normocephalic, head/scalp atraumatic, hearing grossly normal bilaterally and moist oral mucous membranes HEENT Narrative: Mallampati 3, no thrush, dentition is fair with several missing teeth Eyes PERRL, EOMs intact bilaterally and conjunctivae normal Eyes Narrative: No scleral icterus Neck no lymphadenopathy and supple Neck Narrative: Trachea is midline, no thyroid enlargement Resp normal respiratory effort, no retractions, no use of accessory muscles and clearto auscultation bilaterally Auscultation: Negative for rales, rhonchi or wheezes Cardio regular rate, S1 normal heart sound, S2 normal heart sound, no murmurs, no rub, no gallops and no clicks Cardio Narrative: Irregular irregular rhythm with regular rate GI normal to inspection, nondistended, normoactive bowel sounds, soft to palpation and non-tender Extremity Extremity Narrative: Bilateral lower extremity edema that is pitting in 1-2+ in nature-patient statesthis is chronic, no cyanosis or clubbing, right knee with mild joint effusion and decreased active and passive range of motion, joint changes consistent with osteoarthritis Neuro oriented x3, CN's II-XII intact bilaterally, moves all extremities and no focal motor deficits Speech: speech normal Psych affect normal Psych Narrative: Interacts appropriately, eye contact is good, patient is pleasant Results Lab / Micro Data 06/07/23 03:44 06/07/23 03:44 Labs: Laboratory Results - last 24 hr 06/07/23 03:44: WBC 11.6 H, RBC 4.14 L, Hgb 10.7 L, Hct 35.8 L, MCV 86.5, MCH 25.8 L, MCHC 29.9 L, RDW Std Deviation 51.9 H, RDW Coeff of Thao 16.5 H, Plt Count 275, MPV 9.0, Immature Gran % (Auto) 0.800, Neut % (Auto) 81.8 H, Lymph % (Auto) 3.7 L, Alpine % (Auto) 12.4 H, Eos % (Auto) 1.0, Baso % (Auto) 0.3, Absolute Neuts (auto) 9.5 H, Absolute Lymphs (auto) 0.43 L, Nucleated RBC % 0, Sodium 140, Potassium 3.3 L, Chloride 108 H, Carbon Dioxide 26.0, Anion Gap 6, BUN 31 H, Creatinine 1.80 H, Estim Creat Clear Calc 48.21, Est GFR (MDRD) Af Amer 49 L, Est GFR (MDRD) Non-Af 40 L, BUN/Creatinine Ratio 17.2, Glucose 126 H,Calcium 9.7, Troponin I High Sens 38 06/07/23 05:53: Troponin I High Sens 37 Rhythm Strip Rhythm Strip: A-fib Rate: 85 Ectopy: None Assessment & Plan Assessment/Plan (1) Right knee sprain: (2) Inability to ambulate due to knee: (3) Generalized weakness: (4) Hypokalemia: PLAN: Plan Right knee pain with resulting inability to walk and generalized weakness/debility -As needed oxycodone -Scheduled Tylenol -Lidocaine patch -Would recommend outpatient bracing and orthopedic follow-up -PT/OT consultation -Patient is amenable to placement if need be -Consult case management and social work Chronic anemia secondary to chronic renal disease -Baseline hemoglobin appears to run between 9.5 and 11 -Currently 10.7 -Continue to monitor History of GI bleed secondary to gastric ulcer -Continue Protonix 40 mg daily -Continue home Carafate -Continue outpatient GI follow-up CKD stage IIIb -Baseline serum creatinine appears to run between 1.8 and 2.1 -Current serum creatinine is 1.8 -Continue outpatient nephrology follow-up FAVIAN -Patient with history of noncompliance CAD/HTN/HPL/secondary pulmonary hypertension -Last stent was placed in October 2022 -Continue Plavix -Continue home amlodipine -Continue home hydralazine -Continue home losartan -Continue home Ranexa -Continue Lasix -Recommend ongoing outpatient follow-up with cardiology History of DVT/PE -Remote -Not on anticoagulation due to recent GI bleeds Paroxysmal atrial fibrillation -Patient is in rate controlled A-fib currently continue home beta-robinson -Patient is not anticoagulated due to GI bleeding and will discuss at his next visit with Dr. Gonzales per cardiology documentation from 05/30/2023 DM-2 -Home agents are on hold both oral and Ozempic -Add subcu SSI every 6 hours -Accu-Cheks as ordered -Patient with recent well-controlled hemoglobin A1c at 6.4 History of hypercalcemia secondary to hyperparathyroidism -Continue home medication -Check a.m. CMP to assess calcium -Continue home cinacalcet -Continue outpatient follow-up with Dr. Urias Chronic pain -Avoid NSAIDs -As needed Tylenol available -As needed oxycodone for acute knee pain Depression/anxiety -Continue home paroxetine Obesity -Weight is 32.1 -Recommend weight loss -Complicates treatment, prognosis, outcomes DVT prophylaxis -Heparin 3 times daily CODE STATUS Full Code Charges/Coding Visit Charges Inpatient E&M: 77486 Init Hosp L2 06/07/23 0951 <Electronically signed by Cornelia Burns DO> Cosigner Signature (if applicable): CC: Dr. Mery Raymond MD; Dr. Cornelia Burns DO~ Signed [facility] Work Phone: [phone] Discharge summary Author Brady Zaidi [facility] June 07, 2023 8:49am Note Date/Time June 07, 2023 3:42am [facility] Medical Records Department [address] [place] [address] Emergency Department Summary 06/07/23 MR#: [id number] Acct: [id number] Name: SHADE TEIXEIRA Rep #:[id number] : [id number] 67 From: Brady Zaidi MD PCP: Dr. Mery Raymond MD Status:D EP ER Location: ED HPI History of Present Illness Chief Complaint: Chest Pain Informant: patient and EMS Narrative Narrative: Patient is a relatively poor historian, often given answers that do not correlate with the questions and initially starts by saying he is here because his leg was keeping him up tonight. His right knee has been hurting for about 3weeks since an injury, it was getting better, he was getting some home physical therapy by his Palliative care nurse, then he stood up and felt sudden increase in pain in it feeling like he injured it again 2 days ago and is having more of the same pain. He wears CPAP at night and was trying to sleep tonight, he states he sat up and got lightheaded and has a history of orthostasis, so he wasnot surprised by that but then started getting diffuse chest tightness shortly after that followed by discomfort into his left shoulder and upper arm. It seems this is when he called EMS. He states the arm is better but his chest is still bothering him. He feels like he cannot take a deep breath but it is not because of pain, there is no pleuritic component, the discomfort does not localize substernal, and he is not dyspneic. He states he recently was wearing a a cardiac pause as long as 5.2 seconds and he is being scheduled for a pacemaker this coming month in June. Also has a history of CAD and CHF. Patient has had chest discomfort for little over an hour now. [facility] Medical History Abnormal chest xray Acquired left ventricular hypertrophy Acute midline thoracic back pain Adult failure to thrive Alcohol abuse Anemia Anxiety and depression Arthritis Asthma Atherosclerosis of coronary artery of [place] heart without angina pectoris Atrial fibrillation Benign essential HTN BiPAP (biphasic positive airway pressure) dependence Chest pain Chronic hypoxemic respiratory failure Chronic pain Chronic pain of both knees Chronic wound of head Colon cancer screening Congestive heart failure Congestive heart failure (CHF) Dark stools Debility Depression Depression Diabetes Dizziness MEANS (dyspnea on exertion) DVT (deep venous thrombosis) Dyspnea on exertion Essential (primary) hypertension Fall Fatigue Gastric ulcer GERD (gastroesophageal reflux disease) GI bleed Health care maintenance Hearing loss, left Hearing loss, right Heart failure with preserved ejection fraction History of DVT (deep vein thrombosis) History of pulmonary embolism Hypercalcemia Hyperlipidemia Hyperparathyroidism Hypertension Hyperthyroidism Hypertriglyceridemia Hypoxia Insomnia Intermittent chest pain Irregular heart beat Kidney stones Morbid obesity with BMI of 40.0-44.9, adult Near syncope Obesity Olecranon bursitis FAVIAN (obstructive sleep apnea) Osteoarthritis Osteopenia Primary hyperparathyroidism Pure hypercholesterolemia Renal insufficiency Sciatica Secondary pulmonary hypertension Seizures Shortness of breath Sleep apnea Stage 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 disease (CKD) Type 2 diabetes mellitus Vertigo Vision loss of left eye Vision loss of right eye Vitamin D deficiency Home Medications Handicap Tan #1 ea 04/08/20 [Rx Last Taken Unknown] flash glucose scanning reader (FreeStyle Tiffanie 2 Riparius) #1 ea 02/16/21 [Rx Last Taken Unknown] pen needle, diabetic 32 gauge x 5/32 (BD Ultra-Fine Lorie Pen Needle) #360 ea 04/08/22 [Rx Last Taken Unknown] cholecalciferol (vitamin D3) 1,250 mcg (50,000 unit) capsule 1,250 mcg PO QWEEK supplement #8 caps 09/07/22 [Rx Last Taken 04/22/23] clopidogrel 75 mg tablet 75 mg PO DAILY BLOOD THINNER #90 tabs 10/03/22 [Rx Last Taken 02/25/23] fenofibrate micronized 200 mg capsule 200 mg PO DAILY cholesterol #30 caps 10/20/22 [Rx Last Taken Unknown] losartan 25 mg tablet 25 mg PO DAILY blood pressure #90 tabs 12/08/22 [Rx Last Taken Unknown] ranolazine 500 mg tablet,extended release,12 hr 500 mg PO BID chest pain #180 tabs 12/20/22 [Rx Last Taken Unknown] blood sugar diagnostic (Solairedirectuch Verio test strips) #100 ea 03/07/23 [Rx Last Taken Unknown] cinacalcet 30 mg tablet 30 mg PO BID hypercalcemia #60 tabs 03/07/23 [Rx Last Taken Unknown] albuterol sulfate 90 mcg/actuation aerosol inhaler 2 puff inhalation Q6H PRN shortness of breath or wheezing 04/14/23 [History Last Taken Unknown] amlodipine 5 mg tablet 10 mg PO DAILY blood pressure 04/14/23 [History Last Taken Unknown] nitroglycerin 0.4 mg sublingual tablet 0.4 mg sublingual Q5M PRN chest pain 04/14/23 [History Last Taken Unknown] potassium chloride 20 mEq tablet,extended release 20 meq PO DAILY supplement 04/14/23 [History Last Taken Unknown] compress.stocking,knee,reg,lrg #2 ea 04/15/23 [Rx Last Taken Unknown] flash glucose sensor (FreeStyle Tiffanie 2 Sensor kit) #2 ea 04/15/23 [Rx Last Taken Unknown] semaglutide 1 mg/dose (4 mg/3 mL) subcutaneous pen injector (Ozempic) 1 mg subcut QWEEK 04/26/23 [History Last Taken Unknown] oxycodone 5 mg tablet 5 mg PO Q4H PRN PRN Pain Score 6-10 3 days #20 tabs 04/29/23 [Rx Last Taken Unknown] ferrous sulfate 325 mg (65 mg iron) tablet 325 mg PO DAILY supplement #90 tabs 05/19/23 [Rx Last Taken Unknown] furosemide 40 mg tablet 40 mg PO DAILY water pill #30 tabs 05/19/23 [Rx Last Taken Unknown] paroxetine HCl 40 mg tablet 40 mg PO DAILY mood #30 tabs 05/19/23 [Rx Last Taken Unknown] metoprolol succinate 50 mg tablet,extended release 24 hr 50 mg PO Q12H blood pressure 05/30/23 [History Last Taken Unknown] hydralazine 25 mg tablet 25 mg PO TID #90 tabs 05/31/23 [Rx Last Taken Unknown] pantoprazole 40 mg tablet,delayed release 40 mg PO DAILY #90 tabs 06/01/23 [Rx Last Taken Unknown] pantoprazole 40 mg tablet,delayed release 40 mg PO DAILY Stomach #30 tabs 06/01/23 [Rx Last Taken Unknown] sucralfate 1 gram tablet 1 g PO .QID 90 days #360 tabs 06/01/23 [Rx Last Taken Unknown] sucralfate 1 gram tablet 1 g PO .QID stomach 30 days #120 tabs 06/01/23 [Rx Last Taken Unknown] potassium chloride 20 mEq tablet,extended release(part/cryst) 20 meq PO BID 06/07/23 [History Last Taken Unknown] Allergy/AdvReac Type Severity Reaction Status Date / Time No Known Allergies Allergy Verified 06/07/23 03:28 Family History Mother Colon cancer Sister CAD (coronary artery disease) CABG x 5 Diabetes Myocardial infarction, Onset Age: 67 Father Crohns disease Surgical History History of appendectomy History of appendectomy 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) History of coronary artery stent placement (10/21/22) History of eye surgery History of hip replacement History of intestinal surgery History of knee surgery History of tonsillectomy and adenoidectomy Social History household members: none housing: apartment other: working in [employer] and [employer]. Smoking Status: Never smoker second hand exposure: Yes alcohol intake: former year quit: 2003 details: Sober since 2003. substance use type: former substance user Date of last use: 04/10/2004 and marijuana caffeine: Yes Type: carbonated beverages Number of servings: 2 and coffee Number of servings: 2 what type of physical activity do you participate in: none ROS ROS ED Constitutional Constitutional ED: Denies chills or fever(s) Eyes Eyes: Denies change in vision or diplopia ENT ENT ED: Denies rhinorrhea or sore throat Cardiovascular Cardiovascular: Reports as per HPI, chest pain, lightheadedness, pedal edema andradiating jaw, neck or arm pain; Denies palpitations or syncope Respiratory/Chest Respiratory/Chest: Denies cough or dyspnea Gastrointestinal Gastrointestinal: Denies abdominal pain, diarrhea, nausea or vomiting Genitourinary Genitourinary ED: Denies dysuria or hematuria Musculoskeletal Musculoskeletal: Reports extremity pain; Denies back pain or neck pain Integumentary Denies abscess or rash Neurologic Neurologic: Denies headache(s), paresthesias or weakness Psychiatric Psychiatric: Denies anxiety or suicidal thoughts EXAM Physical Exam Const Vital Signs: 06/07/23 03:22 06/07/23 03:29 06/07/23 03:49 Temperature 98.7 F Temperature Source Oral Pulse Rate 83 84 Respiratory Rate 12 Respiratory Effort Normal Respiratory Depth Normal Respiratory Pattern Normal Blood Pressure 164/86 H 152/88 H Blood Pressure Mean 112 Pulse Ox 93 Oxygen Delivery Method Room Air Room Air 06/07/23 03:51 06/07/23 03:34 06/07/23 03:55 Temperature Temperature Source Pulse Rate 77 Respiratory Rate Respiratory Effort Normal Respiratory Depth Respiratory Pattern Normal Blood Pressure 130/70 H Blood Pressure Mean Pulse Ox Oxygen Delivery Method Room Air 06/07/23 04:08 Temperature Temperature Source Pulse Rate 86 Respiratory Rate Respiratory Effort Respiratory Depth Respiratory Pattern Blood Pressure 131/72 H Blood Pressure Mean Pulse Ox Oxygen Delivery Method Positive well nourished, well developed and obese General Appearance ED: well developed and NAD Nutritional Appearance: obese HEENT Reports moist mucous membranes normocephalic and atraumatic Eyes PERRL and EOMs intact bilaterally Neck full ROM, supple and no JVD Resp normal respiratory effort and clear to auscultation bilaterally Resp Narrative: no splinting w/ deep inspiration Cardio regular rate and no murmurs Rhythm: abnormal rhythm irregularly irregular Peripheral Pulses: pulses 2+ throughout GI non-tender and non-distended Auscultation: normoactive bowel sounds Palpation: soft Back/Spine no CVA tenderness General Back: other FROM Extremity normal to inspection General Extremety ED: Yes edema; Negative for pulses abnormal or tenderness General Extremity: edema bilateral lower extremity Details: mild; Negative for pulses abnormal Neuro oriented x3, CN's II-XII intact bilaterally and no sensory deficits noted Sensorium / Orientation: awake and alert Motor Exam: strength 5/5 throughout Skin no rashes or lesions noted and no wounds Heart Score History: Moderately Suspicious Age: >/= 65 years Risk Factors: >/= 3 Risk Factors or History of CAD Score: 5 MDM MDM MDM Narrative Medical decision making narrative: Patient appears to be in atrial fibrillation, his EKG is otherwise unremarkable,and unchanged compared with prior. In reviewing his old records, the A-fib is not new, it appears that he had several stents placed last October and is on clopidogrel but was taken off of aspirin and the stroke prophylactic Eliquis because of a GI bleed in the end of last year or 3 or 4 months ago, and he did have a monitor showing a 5.2- second pause while he was resting, so he apparentlyis being referred for EP evaluation not scheduled for pacemaker like the patientinitially suggested. Regardless he has had no syncopal episodes here recently and the lightheadedness he had when he sat up in bed is a common orthostatic symptoms for him. His vital signs are normal right now and we are working him up for ACS, with a delta troponin if the initial measurement is within normal limits. His right knee pain does not sound like anything acute and new. He does not have any signs or symptoms of a DVT and I do not think his chest discomfort sounds like a pulmonary embolism so I do not think he needs workup for that right now. Indeed the patient's second troponin measurement went down, arguing against acute coronary syndrome as etiology for his chest discomfort right now. He was given morphine and a nitroglycerin, he is pain-free with regards to his chest and arm discomfort, breathing normally, vital signs are stable with blood pressure 131/72 and his knee is feeling better. Will discharge him home with close outpatient follow-up, I did review outpatient cardiology visit from 1 weekago and he is to continue the clopidogrel as I am advising as well. History & Record Review Additional record(s) reviewed:: Prior outpatient record Lab Data Attestation: I reviewed the patient's lab results. Labs: Laboratory Results - last 24 hr 06/07/23 06/07/23 03:44 05:53 WBC 11.6 H RBC 4.14 L Hgb 10.7 L Hct 35.8 L MCV 86.5 MCH 25.8 L MCHC 29.9 L RDW Std Deviation 51.9 H RDW Coeff of Thao 16.5 H Plt Count 275 MPV 9.0 Immature Gran % (Auto) 0.800 Neut % (Auto) 81.8 H Lymph % (Auto) 3.7 L Alpine % (Auto) 12.4 H Eos % (Auto) 1.0 Baso % (Auto) 0.3 Absolute Neuts (auto) 9.5 H Absolute Lymphs (auto) 0.43 L Nucleated RBC % 0 Sodium 140 Potassium 3.3 L Chloride 108 H Carbon Dioxide 26.0 Anion Gap 6 BUN 31 H Creatinine 1.80 H Estim Creat Clear Calc 48.21 Est GFR (MDRD) Af Amer 49 L Est GFR (MDRD) Non-Af 40 L BUN/Creatinine Ratio 17.2 Glucose 126 H Calcium 9.7 Troponin I High Sens 38 37 Rhythm Strip Rhythm Strip: A-fib Rate: 85 Ectopy: None EKG Initial EKG: Attestation: I personally reviewed and interpreted this EKG as follows: Interpretation: No Acute Injury Pattern and Atrial Fibrillation Prior EKG tracings: available for review Prior: Unchanged Discharge Plan Triage Chief Complaint: Chest Pain Other Complaint: Lower Extremity Injury Shortness of Breath ED Provider: Brady Zaidi Dx/Rx/DC Orders Clinical Impression: Right knee sprain, Atrial fibrillation, Chest pain, unspecified Instructions: ED Chest Pain, Uncertain Cause Prescriptions: No Action (DME) Handicap Placard See Rx Instructions .ROUTE .MEDSUPPLY Qty: 1 0RF Rx Instructions: As directed, length of time 3 years (DME) FreeStyle Tiffanie 2 Riparius Misc See Rx Instructions .ROUTE .MEDSUPPLY Qty: 1 0RF Rx Instructions: As directed (DME) OneTouch Verio test strips Strip See Rx Instructions .ROUTE .MEDSUPPLY Qty: 100 12RF Rx Instructions: test 3 times daily cinacalcet 30 mg tablet 30 mg PO BID Qty: 60 8RF metoprolol succinate 50 mg tablet extended release 24 hr 50 mg PO Q12H Patient Comments: TAKE 1 TABLET BY MOUTH TWICE DAILY FOR BLOOD PRESSURE nitroglycerin 0.4 mg tablet, sublingual 0.4 mg sublingual Q5M PRN (Reason: chest pain) Rx Instructions: do not exceed 3 doses per episode albuterol sulfate 90 mcg/actuation HFA aerosol inhaler 2 puff inhalation Q6H PRN (Reason: shortness of breath or wheezing) potassium chloride 20 mEq tablet extended release 20 meq PO DAILY amlodipine 5 mg tablet 10 mg PO DAILY (DME) compress.stocking,knee,reg,lrg Misc See Rx Instructions .ROUTE .MEDSUPPLY Qty: 2 0RF Rx Instructions: Apply first thing in AM before ambulation (DME) FreeTipstar Tiffanie 2 Sensor Kit See Rx Instructions .ROUTE .MEDSUPPLY Qty: 2 6RF Rx Instructions: As directed hydralazine 25 mg tablet 25 mg PO TID Qty: 90 2RF Ozempic 1 mg/dose (4 mg/3 mL) pen injector 1 mg SUBCUT QWEEK Patient Comments: INJECT 1MG (0.75ML) SUBCUTANEOUSLY EVERY WEEK oxycodone 5 mg Tablet 5 mg PO Q4H PRN PRN (Reason: Pain Score 6-10) 3 Days Qty: 20 0RF potassium chloride 20 mEq tablet,ER particles/crystals 20 meq PO BID Patient Comments: TAKE ONE (1) TABLET BY MOUTH TWICE DAILY FOR POTASSIUM (DME) pen needle, diabetic [BD Ultra-Fine Lorie Pen Needle] 32 gauge x 5/32 needle See Rx Instructions .ROUTE .MEDSUPPLY Qty: 360 5RF Rx Instructions: 4x/day cholecalciferol (vitamin D3) 1,250 mcg (50,000 unit) capsule 1,250 mcg PO QWEEK Qty: 8 6RF Hold Instructions: Ordered clopidogrel 75 mg tablet 75 mg PO DAILY Qty: 90 3RF fenofibrate micronized 200 mg capsule 200 mg PO DAILY Qty: 30 12RF losartan 25 mg tablet 25 mg PO DAILY Qty: 90 3RF Hold Instructions: until you see nephrology ranolazine 500 mg tablet extended release 12 hr 500 mg PO BID Qty: 180 3RF ferrous sulfate 325 mg (65 mg iron) tablet 325 mg PO DAILY Qty: 90 1RF furosemide 40 mg tablet 40 mg PO DAILY Qty: 30 1RF paroxetine HCl 40 mg tablet 40 mg PO DAILY Qty: 30 1RF pantoprazole 40 mg tablet,delayed release (DR/EC) 40 mg PO DAILY Qty: 30 0RF Rx Instructions: recently decreased from BID pantoprazole 40 mg tablet,delayed release (DR/EC) 40 mg PO DAILY Qty: 90 1RF sucralfate 1 gram tablet 1 g PO .QID 90 Days Qty: 360 1RF sucralfate 1 gram tablet 1 g PO .QID 30 Days Qty: 120 0RF Primary Care Provider: Mery Raymond Referrals: Robb Hua MD [Med Staff - Active Staff] - Mery Raymond MD [Primary Care Provider] - Disposition Disposition: Home, Self Care What to do if you have Problems For any increased pain, shortness of breath, bleeding, nausea or vomiting, chestpain, or any unexpected problems, contact your Primary Care Provider. Call [facility] ([phone]) or report to the closest Emergency Room. Call 911 if necessary. 06/07/23 0632 <Electronically signed by Brady Zaidi MD> Cosigner Signature (if applicable): CC: Dr. Mery Raymond MD; ANJEL Bearden ~ Signed ADDENDUM by Dr. Brady Zaidi MD on 06/07/23 at 0826 After discharge, patient was brought back in because he was unable to safely stand and walk due to the pain in his right knee. He states prior to today, he was just barely getting around the apartment okay, but now he feels like he is unsafe and not able to walk. He does not have any focal neurologic weakness. Edwin obtaining a 2 view x-ray series of the right knee. The patient states that he has been in and out of the hospital and rehab several times in the past 3 to 4 months. He has palliative care nurse coming to the house occasionally but he is not on hospice for any reason. He feels like he is needing rehab again now because of his knee. Will discuss with hospitalist. 06/07/23 0826<Electronically signed by Brady Zaidi MD> Cosigner Signature (if applicable): cc: Dr. Mery Raymond MD; ANJEL Bearden ~* Signed ADDENDUM by Dr. Brady Zaidi MD on 06/07/23 at 0849 2 view right knee x-ray on my interpretation shows no acute fractures, there is multi compartmental arthritis present. 06/07/23 0849<Electronically signed by Brady Zaidi MD> Cosigner Signature (if applicable): cc: Dr. Mery Raymond MD; ANJEL Bearden ~* Signed [facility] Work Phone: [phone] Discharge summary Author Brady Zaidi [facility] June 07, 2023 8:49am Note Date/Time June 07, 2023 3:42am [facility] Medical Records Department [address] [place] [id number] Emergency Department Summary 06/07/23 MR#: [id number] Acct: [id number] Name: SHADE TEIXEIRA Rep #:[id number] : 1955 67 From: Brady Zaidi MD PCP: Dr. Mery Raymond MD Status:D EP ER Location: ED HPI History of Present Illness Chief Complaint: Chest Pain Informant: patient and EMS Narrative Narrative: Patient is a relatively poor historian, often given answers that do not correlate with the questions and initially starts by saying he is here because his leg was keeping him up tonight. His right knee has been hurting for about 3weeks since an injury, it was getting better, he was getting some home physical therapy by his Palliative care nurse, then he stood up and felt sudden increase in pain in it feeling like he injured it again 2 days ago and is having more of the same pain. He wears CPAP at night and was trying to sleep tonight, he states he sat up and got lightheaded and has a history of orthostasis, so he wasnot surprised by that but then started getting diffuse chest tightness shortly after that followed by discomfort into his left shoulder and upper arm. It seems this is when he called EMS. He states the arm is better but his chest is still bothering him. He feels like he cannot take a deep breath but it is not because of pain, there is no pleuritic component, the discomfort does not localize substernal, and he is not dyspneic. He states he recently was wearing a a cardiac pause as long as 5.2 seconds and he is being scheduled for a pacemaker this coming month in June. Also has a history of CAD and CHF. Patient has had chest discomfort for little over an hour now. [facility] Medical History Abnormal chest xray Acquired left ventricular hypertrophy Acute midline thoracic back pain Adult failure to thrive Alcohol abuse Anemia Anxiety and depression Arthritis Asthma Atherosclerosis of coronary artery of [place] heart without angina pectoris Atrial fibrillation Benign essential HTN BiPAP (biphasic positive airway pressure) dependence Chest pain Chronic hypoxemic respiratory failure Chronic pain Chronic pain of both knees Chronic wound of head Colon cancer screening Congestive heart failure Congestive heart failure (CHF) Dark stools Debility Depression Depression Diabetes Dizziness MEANS (dyspnea on exertion) DVT (deep venous thrombosis) Dyspnea on exertion Essential (primary) hypertension Fall Fatigue Gastric ulcer GERD (gastroesophageal reflux disease) GI bleed Health care maintenance Hearing loss, left Hearing loss, right Heart failure with preserved ejection fraction History of DVT (deep vein thrombosis) History of pulmonary embolism Hypercalcemia Hyperlipidemia Hyperparathyroidism Hypertension Hyperthyroidism Hypertriglyceridemia Hypoxia Insomnia Intermittent chest pain Irregular heart beat Kidney stones Morbid obesity with BMI of 40.0-44.9, adult Near syncope Obesity Olecranon bursitis FAVIAN (obstructive sleep apnea) Osteoarthritis Osteopenia Primary hyperparathyroidism Pure hypercholesterolemia Renal insufficiency Sciatica Secondary pulmonary hypertension Seizures Shortness of breath Sleep apnea Stage 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 disease (CKD) Type 2 diabetes mellitus Vertigo Vision loss of left eye Vision loss of right eye Vitamin D deficiency Home Medications Handicap Placard #1 ea 04/08/20 [Rx Last Taken Unknown] flash glucose scanning reader ([employer] Tiffanie 2 Riparius) #1 ea 02/16/21 [Rx Last Taken Unknown] pen needle, diabetic 32 gauge x 32 (BD Ultra-Fine Lorie Pen Needle) #360 ea 04/08/22 [Rx Last Taken Unknown] cholecalciferol (vitamin D3) 1,250 mcg (50,000 unit) capsule 1,250 mcg PO QWEEK supplement #8 caps 09/07/22 [Rx Last Taken 04/22/23] clopidogrel 75 mg tablet 75 mg PO DAILY BLOOD THINNER #90 tabs 10/03/22 [Rx Last Taken 02/25/23] fenofibrate micronized 200 mg capsule 200 mg PO DAILY cholesterol #30 caps 10/20/22 [Rx Last Taken Unknown] losartan 25 mg tablet 25 mg PO DAILY blood pressure #90 tabs 12/08/22 [Rx Last Taken Unknown] ranolazine 500 mg tablet,extended release,12 hr 500 mg PO BID chest pain #180 tabs 12/20/22 [Rx Last Taken Unknown] blood sugar diagnostic ([employer] Verio test strips) #100 ea 03/07/23 [Rx Last Taken Unknown] cinacalcet 30 mg tablet 30 mg PO BID hypercalcemia #60 tabs 03/07/23 [Rx Last Taken Unknown] albuterol sulfate 90 mcg/actuation aerosol inhaler 2 puff inhalation Q6H PRN shortness of breath or wheezing 04/14/23 [History Last Taken Unknown] amlodipine 5 mg tablet 10 mg PO DAILY blood pressure 04/14/23 [History Last Taken Unknown] nitroglycerin 0.4 mg sublingual tablet 0.4 mg sublingual Q5M PRN chest pain 04/14/23 [History Last Taken Unknown] potassium chloride 20 mEq tablet,extended release 20 meq PO DAILY supplement 04/14/23 [History Last Taken Unknown] compress.stocking,knee,reg,lrg #2 ea 04/15/23 [Rx Last Taken Unknown] flash glucose sensor (FreeStyle Tiffanie 2 Sensor kit) #2 ea 04/15/23 [Rx Last Taken Unknown] semaglutide 1 mg/dose (4 mg/3 mL) subcutaneous pen injector (Ozempic) 1 mg subcut QWEEK 04/26/23 [History Last Taken Unknown] oxycodone 5 mg tablet 5 mg PO Q4H PRN PRN Pain Score 6-10 3 days #20 tabs 04/29/23 [Rx Last Taken Unknown] ferrous sulfate 325 mg (65 mg iron) tablet 325 mg PO DAILY supplement #90 tabs 05/19/23 [Rx Last Taken Unknown] furosemide 40 mg tablet 40 mg PO DAILY water pill #30 tabs 05/19/23 [Rx Last Taken Unknown] paroxetine HCl 40 mg tablet 40 mg PO DAILY mood #30 tabs 05/19/23 [Rx Last Taken Unknown] metoprolol succinate 50 mg tablet,extended release 24 hr 50 mg PO Q12H blood pressure 05/30/23 [History Last Taken Unknown] hydralazine 25 mg tablet 25 mg PO TID #90 tabs 05/31/23 [Rx Last Taken Unknown] pantoprazole 40 mg tablet,delayed release 40 mg PO DAILY #90 tabs 06/01/23 [Rx Last Taken Unknown] pantoprazole 40 mg tablet,delayed release 40 mg PO DAILY Stomach #30 tabs 06/01/23 [Rx Last Taken Unknown] sucralfate 1 gram tablet 1 g PO .QID 90 days #360 tabs 06/01/23 [Rx Last Taken Unknown] sucralfate 1 gram tablet 1 g PO .QID stomach 30 days #120 tabs 06/01/23 [Rx Last Taken Unknown] potassium chloride 20 mEq tablet,extended release(part/cryst) 20 meq PO BID 06/07/23 [History Last Taken Unknown] Allergy/AdvReac Type Severity Reaction Status Date / Time No Known Allergies Allergy Verified 06/07/23 03:28 Family History Mother Colon cancer Sister CAD (coronary artery disease) CABG x 5 Diabetes Myocardial infarction, Onset Age: 67 Father Crohns disease Surgical History History of appendectomy History of appendectomy 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 Smoking Status: Never smoker second hand exposure: Yes alcohol intake: former year quit: 2003 details: Sober since 2003. substance use type: former substance user Date of last use: 04/10/2004 and marijuana caffeine: Yes Type: carbonated beverages Number of servings: 2 and coffee Number of servings: 2 what type of physical activity do you participate in: none ROS ROS ED Constitutional Constitutional ED: Denies chills or fever(s) Eyes Eyes: Denies change in vision or diplopia ENT ENT ED: Denies rhinorrhea or sore throat Cardiovascular Cardiovascular: Reports as per HPI, chest pain, lightheadedness, pedal edema andradiating jaw, neck or arm pain; Denies palpitations or syncope Respiratory/Chest Respiratory/Chest: Denies cough or dyspnea Gastrointestinal Gastrointestinal: Denies abdominal pain, diarrhea, nausea or vomiting Genitourinary Genitourinary ED: Denies dysuria or hematuria Musculoskeletal Musculoskeletal: Reports extremity pain; Denies back pain or neck pain Integumentary Denies abscess or rash Neurologic Neurologic: Denies headache(s), paresthesias or weakness Psychiatric Psychiatric: Denies anxiety or suicidal thoughts EXAM Physical Exam Const Vital Signs: 06/07/23 03:22 06/07/23 03:29 06/07/23 03:49 Temperature 98.7 F Temperature Source Oral Pulse Rate 83 84 Respiratory Rate 12 Respiratory Effort Normal Respiratory Depth Normal Respiratory Pattern Normal Blood Pressure 164/86 H 152/88 H Blood Pressure Mean 112 Pulse Ox 93 Oxygen Delivery Method Room Air Room Air 06/07/23 03:51 06/07/23 03:34 06/07/23 03:55 Temperature Temperature Source Pulse Rate 77 Respiratory Rate Respiratory Effort Normal Respiratory Depth Respiratory Pattern Normal Blood Pressure 130/70 H Blood Pressure Mean Pulse Ox Oxygen Delivery Method Room Air 06/07/23 04:08 Temperature Temperature Source Pulse Rate 86 Respiratory Rate Respiratory Effort Respiratory Depth Respiratory Pattern Blood Pressure 131/72 H Blood Pressure Mean Pulse Ox Oxygen Delivery Method Positive well nourished, well developed and obese General Appearance ED: well developed and NAD Nutritional Appearance: obese HEENT Reports moist mucous membranes normocephalic and atraumatic Eyes PERRL and EOMs intact bilaterally Neck full ROM, supple and no JVD Resp normal respiratory effort and clear to auscultation bilaterally Resp Narrative: no splinting w/ deep inspiration Cardio regular rate and no murmurs Rhythm: abnormal rhythm irregularly irregular Peripheral Pulses: pulses 2+ throughout GI non-tender and non-distended Auscultation: normoactive bowel sounds Palpation: soft Back/Spine no CVA tenderness General Back: other FROM Extremity normal to inspection General Extremety ED: Yes edema; Negative for pulses abnormal or tenderness General Extremity: edema bilateral lower extremity Details: mild; Negative for pulses abnormal Neuro oriented x3, CN's II-XII intact bilaterally and no sensory deficits noted Sensorium / Orientation: awake and alert Motor Exam: strength 5/5 throughout Skin no rashes or lesions noted and no wounds Heart Score History: Moderately Suspicious Age: >/= 65 years Risk Factors: >/= 3 Risk Factors or History of CAD Score: 5 MDM MDM MDM Narrative Medical decision making narrative: Patient appears to be in atrial fibrillation, his EKG is otherwise unremarkable,and unchanged compared with prior. In reviewing his old records, the A-fib is not new, it appears that he had several stents placed last October and is on clopidogrel but was taken off of aspirin and the stroke prophylactic Eliquis because of a GI bleed in the end of last year or 3 or 4 months ago, and he did have a monitor showing a 5.2- second pause while he was resting, so he apparentlyis being referred for EP evaluation not scheduled for pacemaker like the patientinitially suggested. Regardless he has had no syncopal episodes here recently and the lightheadedness he had when he sat up in bed is a common orthostatic symptoms for him. His vital signs are normal right now and we are working him up for ACS, with a delta troponin if the initial measurement is within normal limits. His right knee pain does not sound like anything acute and new. He does not have any signs or symptoms of a DVT and I do not think his chest discomfort sounds like a pulmonary embolism so I do not think he needs workup for that right now. Indeed the patient's second troponin measurement went down, arguing against acute coronary syndrome as etiology for his chest discomfort right now. He was given morphine and a nitroglycerin, he is pain-free with regards to his chest and arm discomfort, breathing normally, vital signs are stable with blood pressure 131/72 and his knee is feeling better. Will discharge him home with close outpatient follow-up, I did review outpatient cardiology visit from 1 weekago and he is to continue the clopidogrel as I am advising as well. History & Record Review Additional record(s) reviewed:: Prior outpatient record Lab Data Attestation: I reviewed the patient's lab results. Labs: Laboratory Results - last 24 hr 06/07/23 06/07/23 03:44 05:53 WBC 11.6 H RBC 4.14 L Hgb 10.7 L Hct 35.8 L MCV 86.5 MCH 25.8 L MCHC 29.9 L RDW Std Deviation 51.9 H RDW Coeff of Thao 16.5 H Plt Count 275 MPV 9.0 Immature Gran % (Auto) 0.800 Neut % (Auto) 81.8 H Lymph % (Auto) 3.7 L Alpine % (Auto) 12.4 H Eos % (Auto) 1.0 Baso % (Auto) 0.3 Absolute Neuts (auto) 9.5 H Absolute Lymphs (auto) 0.43 L Nucleated RBC % 0 Sodium 140 Potassium 3.3 L Chloride 108 H Carbon Dioxide 26.0 Anion Gap 6 BUN 31 H Creatinine 1.80 H Estim Creat Clear Calc 48.21 Est GFR (MDRD) Af Amer 49 L Est GFR (MDRD) Non-Af 40 L BUN/Creatinine Ratio 17.2 Glucose 126 H Calcium 9.7 Troponin I High Sens 38 37 Rhythm Strip Rhythm Strip: A-fib Rate: 85 Ectopy: None EKG Initial EKG: Attestation: I personally reviewed and interpreted this EKG as follows: Interpretation: No Acute Injury Pattern and Atrial Fibrillation Prior EKG tracings: available for review Prior: Unchanged Discharge Plan Triage Chief Complaint: Chest Pain Other Complaint: Lower Extremity Injury Shortness of Breath ED Provider: Brady Zaidi Dx/Rx/DC Orders Clinical Impression: Right knee sprain, Atrial fibrillation, Chest pain, unspecified Instructions: ED Chest Pain, Uncertain Cause Prescriptions: No Action (DME) Handicap Placard See Rx Instructions .ROUTE .MEDSUPPLY Qty: 1 0RF Rx Instructions: As directed, length of time 3 years (DME) FreeStyle Tiffanie 2 Riparius Mis See Rx Instructions .ROUTE .MEDSUPPLY Qty: 1 0RF Rx Instructions: As directed (DME) OneTouch Verio test strips Strip See Rx Instructions .ROUTE .MEDSUPPLY Qty: 100 12RF Rx Instructions: test 3 times daily cinacalcet 30 mg tablet 30 mg PO BID Qty: 60 8RF metoprolol succinate 50 mg tablet extended release 24 hr 50 mg PO Q12H Patient Comments: TAKE 1 TABLET BY MOUTH TWICE DAILY FOR BLOOD PRESSURE nitroglycerin 0.4 mg tablet, sublingual 0.4 mg sublingual Q5M PRN (Reason: chest pain) Rx Instructions: do not exceed 3 doses per episode albuterol sulfate 90 mcg/actuation HFA aerosol inhaler 2 puff inhalation Q6H PRN (Reason: shortness of breath or wheezing) potassium chloride 20 mEq tablet extended release 20 meq PO DAILY amlodipine 5 mg tablet 10 mg PO DAILY (DME) compress.stocking,knee,reg,lrg Misc See Rx Instructions .ROUTE .MEDSUPPLY Qty: 2 0RF Rx Instructions: Apply first thing in AM before ambulation (DME) FreeStyle Tiffanie 2 Sensor Kit See Rx Instructions .ROUTE .MEDSUPPLY Qty: 2 6RF Rx Instructions: As directed hydralazine 25 mg tablet 25 mg PO TID Qty: 90 2RF Ozempic 1 mg/dose (4 mg/3 mL) pen injector 1 mg SUBCUT QWEEK Patient Comments: INJECT 1MG (0.75ML) SUBCUTANEOUSLY EVERY WEEK oxycodone 5 mg Tablet 5 mg PO Q4H PRN PRN (Reason: Pain Score 6-10) 3 Days Qty: 20 0RF potassium chloride 20 mEq tablet,ER particles/crystals 20 meq PO BID Patient Comments: TAKE ONE (1) TABLET BY MOUTH TWICE DAILY FOR POTASSIUM (DME) pen needle, diabetic [BD Ultra-Fine Lorie Pen Needle] 32 gauge x 5/32 needle See Rx Instructions .ROUTE .MEDSUPPLY Qty: 360 5RF Rx Instructions: 4x/day cholecalciferol (vitamin D3) 1,250 mcg (50,000 unit) capsule 1,250 mcg PO QWEEK Qty: 8 6RF Hold Instructions: Ordered clopidogrel 75 mg tablet 75 mg PO DAILY Qty: 90 3RF fenofibrate micronized 200 mg capsule 200 mg PO DAILY Qty: 30 12RF losartan 25 mg tablet 25 mg PO DAILY Qty: 90 3RF Hold Instructions: until you see nephrology ranolazine 500 mg tablet extended release 12 hr 500 mg PO BID Qty: 180 3RF ferrous sulfate 325 mg (65 mg iron) tablet 325 mg PO DAILY Qty: 90 1RF furosemide 40 mg tablet 40 mg PO DAILY Qty: 30 1RF paroxetine HCl 40 mg tablet 40 mg PO DAILY Qty: 30 1RF pantoprazole 40 mg tablet,delayed release (DR/EC) 40 mg PO DAILY Qty: 30 0RF Rx Instructions: recently decreased from BID pantoprazole 40 mg tablet,delayed release (DR/EC) 40 mg PO DAILY Qty: 90 1RF sucralfate 1 gram tablet 1 g PO .QID 90 Days Qty: 360 1RF sucralfate 1 gram tablet 1 g PO .QID 30 Days Qty: 120 0RF Primary Care Provider: Mery Raymond Referrals: Robb Hua MD [Med Staff - Active Staff] - Mery Raymond MD [Primary Care Provider] - Disposition Disposition: Home, Self Care What to do if you have Problems For any increased pain, shortness of breath, bleeding, nausea or vomiting, chestpain, or any unexpected problems, contact your Primary Care Provider. Call [facility] ([phone]) or report to the closest Emergency Room. Call 911 if necessary. 06/07/23 0632 <Electronically signed by Brady Zaidi MD> Cosigner Signature (if applicable): CC: Dr. Mery Raymond MD; ANJEL Bearden ~ Signed ADDENDUM by Dr. Brady Zaidi MD on 06/07/23 at 0826 After discharge, patient was brought back in because he was unable to safely stand and walk due to the pain in his right knee. He states prior to today, he was just barely getting around the apartment okay, but now he feels like he is unsafe and not able to walk. He does not have any focal neurologic weakness. Edwin obtaining a 2 view x-ray series of the right knee. The patient states that he has been in and out of the hospital and rehab several times in the past 3 to 4 months. He has palliative care nurse coming to the house occasionally but he is not on hospice for any reason. He feels like he is needing rehab again now because of his knee. Will discuss with hospitalist. 06/07/23 0826<Electronically signed by Brady Zaidi MD> Cosigner Signature (if applicable): cc: Dr. Mery Raymond MD; ANJEL Bearden ~* Signed ADDENDUM by Dr. Brady Zaidi MD on 06/07/23 at 0849 2 view right knee x-ray on my interpretation shows no acute fractures, there is multi compartmental arthritis present. 06/07/23 0849<Electronically signed by Brady Zaidi MD> Cosigner Signature (if applicable): cc: Dr. Mery Raymond MD; ANJEL Bearden ~* Signed [facility] Work Phone: [phone] Discharge summary Author Brady Zaidi [facility] June 07, 2023 6:32am Note Date/Time June 07, 2023 3:42am [facility] Medical Records Department [address] [place] [address] Emergency Department Summary 06/07/23 MR#: [id number] Acct: [id number] Name: SHADE TEIXEIRA Rep #:[id number] : 1955 67 From: Brady Zaidi MD PCP: Dr. Mery Raymond MD Status:R EG ER Location: ED HPI History of Present Illness Chief Complaint: Chest Pain Informant: patient and EMS Narrative Narrative: Patient is a relatively poor historian, often given answers that do not correlate with the questions and initially starts by saying he is here because his leg was keeping him up tonight. His right knee has been hurting for about 3weeks since an injury, it was getting better, he was getting some home physical therapy by his Palliative care nurse, then he stood up and felt sudden increase in pain in it feeling like he injured it again 2 days ago and is having more of the same pain. He wears CPAP at night and was trying to sleep tonight, he states he sat up and got lightheaded and has a history of orthostasis, so he wasnot surprised by that but then started getting diffuse chest tightness shortly after that followed by discomfort into his left shoulder and upper arm. It seems this is when he called EMS. He states the arm is better but his chest is still bothering him. He feels like he cannot take a deep breath but it is not because of pain, there is no pleuritic component, the discomfort does not localize substernal, and he is not dyspneic. He states he recently was wearing a a cardiac pause as long as 5.2 seconds and he is being scheduled for a pacemaker this coming month in June. Also has a history of CAD and CHF. Patient has had chest discomfort for little over an hour now. [facility] Medical History Abnormal chest xray Acquired left ventricular hypertrophy Acute midline thoracic back pain Adult failure to thrive Alcohol abuse Anemia Anxiety and depression Arthritis Asthma Atherosclerosis of coronary artery of [place] heart without angina pectoris Atrial fibrillation Benign essential HTN BiPAP (biphasic positive airway pressure) dependence Chest pain Chronic hypoxemic respiratory failure Chronic pain Chronic pain of both knees Chronic wound of head Colon cancer screening Congestive heart failure Congestive heart failure (CHF) Dark stools Debility Depression Depression Diabetes Dizziness MEANS (dyspnea on exertion) DVT (deep venous thrombosis) Dyspnea on exertion Essential (primary) hypertension Fall Fatigue Gastric ulcer GERD (gastroesophageal reflux disease) GI bleed Health care maintenance Hearing loss, left Hearing loss, right Heart failure with preserved ejection fraction History of DVT (deep vein thrombosis) History of pulmonary embolism Hypercalcemia Hyperlipidemia Hyperparathyroidism Hypertension Hyperthyroidism Hypertriglyceridemia Hypoxia Insomnia Intermittent chest pain Irregular heart beat Kidney stones Morbid obesity with BMI of 40.0-44.9, adult Near syncope Obesity Olecranon bursitis FAVIAN (obstructive sleep apnea) Osteoarthritis Osteopenia Primary hyperparathyroidism Pure hypercholesterolemia Renal insufficiency Sciatica Secondary pulmonary hypertension Seizures Shortness of breath Sleep apnea Stage 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 disease (CKD) Type 2 diabetes mellitus Vertigo Vision loss of left eye Vision loss of right eye Vitamin D deficiency Home Medications Handicap Placard #1 ea 04/08/20 [Rx Last Taken Unknown] flash glucose scanning reader ([employer] Tiffanie 2 Riparius) #1 ea 02/16/21 [Rx Last Taken Unknown] pen needle, diabetic 32 gauge x 5/32 (BD Ultra-Fine Lorie Pen Needle) #360 ea 04/08/22 [Rx Last Taken Unknown] cholecalciferol (vitamin D3) 1,250 mcg (50,000 unit) capsule 1,250 mcg PO QWEEK supplement #8 caps 09/07/22 [Rx Last Taken 04/22/23] clopidogrel 75 mg tablet 75 mg PO DAILY BLOOD THINNER #90 tabs 10/03/22 [Rx Last Taken 02/25/23] fenofibrate micronized 200 mg capsule 200 mg PO DAILY cholesterol #30 caps 10/20/22 [Rx Last Taken Unknown] losartan 25 mg tablet 25 mg PO DAILY blood pressure #90 tabs 12/08/22 [Rx Last Taken Unknown] ranolazine 500 mg tablet,extended release,12 hr 500 mg PO BID chest pain #180 tabs 12/20/22 [Rx Last Taken Unknown] blood sugar diagnostic (OneTouch Verio test strips) #100 ea 03/07/23 [Rx Last Taken Unknown] cinacalcet 30 mg tablet 30 mg PO BID hypercalcemia #60 tabs 03/07/23 [Rx Last Taken Unknown] albuterol sulfate 90 mcg/actuation aerosol inhaler 2 puff inhalation Q6H PRN shortness of breath or wheezing 04/14/23 [History Last Taken Unknown] amlodipine 5 mg tablet 10 mg PO DAILY blood pressure 04/14/23 [History Last Taken Unknown] nitroglycerin 0.4 mg sublingual tablet 0.4 mg sublingual Q5M PRN chest pain 04/14/23 [History Last Taken Unknown] potassium chloride 20 mEq tablet,extended release 20 meq PO DAILY supplement 04/14/23 [History Last Taken Unknown] compress.stocking,knee,reg,lrg #2 ea 04/15/23 [Rx Last Taken Unknown] flash glucose sensor (FreeStyle Tiffanie 2 Sensor kit) #2 ea 04/15/23 [Rx Last Taken Unknown] semaglutide 1 mg/dose (4 mg/3 mL) subcutaneous pen injector (Ozempic) 1 mg subcut QWEEK 04/26/23 [History Last Taken Unknown] oxycodone 5 mg tablet 5 mg PO Q4H PRN PRN Pain Score 6-10 3 days #20 tabs 04/29/23 [Rx Last Taken Unknown] ferrous sulfate 325 mg (65 mg iron) tablet 325 mg PO DAILY supplement #90 tabs 05/19/23 [Rx Last Taken Unknown] furosemide 40 mg tablet 40 mg PO DAILY water pill #30 tabs 05/19/23 [Rx Last Taken Unknown] paroxetine HCl 40 mg tablet 40 mg PO DAILY mood #30 tabs 05/19/23 [Rx Last Taken Unknown] metoprolol succinate 50 mg tablet,extended release 24 hr 50 mg PO Q12H blood pressure 05/30/23 [History Last Taken Unknown] hydralazine 25 mg tablet 25 mg PO TID #90 tabs 05/31/23 [Rx Last Taken Unknown] pantoprazole 40 mg tablet,delayed release 40 mg PO DAILY #90 tabs 06/01/23 [Rx Last Taken Unknown] pantoprazole 40 mg tablet,delayed release 40 mg PO DAILY Stomach #30 tabs 06/01/23 [Rx Last Taken Unknown] sucralfate 1 gram tablet 1 g PO .QID 90 days #360 tabs 06/01/23 [Rx Last Taken Unknown] sucralfate 1 gram tablet 1 g PO .QID stomach 30 days #120 tabs 06/01/23 [Rx Last Taken Unknown] potassium chloride 20 mEq tablet,extended release(part/cryst) 20 meq PO BID 06/07/23 [History Last Taken Unknown] Allergy/AdvReac Type Severity Reaction Status Date / Time No Known Allergies Allergy Verified 06/07/23 03:28 Family History Mother Colon cancer Sister CAD (coronary artery disease) CABG x 5 Diabetes Myocardial infarction, Onset Age: 67 Father Crohns disease Surgical History History of appendectomy History of appendectomy 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 Smoking Status: Never smoker second hand exposure: Yes alcohol intake: former year quit: 2003 details: Sober since 2003. substance use type: former substance user Date of last use: 04/10/2004 and marijuana caffeine: Yes Type: carbonated beverages Number of servings: 2 and coffee Number of servings: 2 what type of physical activity do you participate in: none ROS ROS ED Constitutional Constitutional ED: Denies chills or fever(s) Eyes Eyes: Denies change in vision or diplopia ENT ENT ED: Denies rhinorrhea or sore throat Cardiovascular Cardiovascular: Reports as per HPI, chest pain, lightheadedness, pedal edema andradiating jaw, neck or arm pain; Denies palpitations or syncope Respiratory/Chest Respiratory/Chest: Denies cough or dyspnea Gastrointestinal Gastrointestinal: Denies abdominal pain, diarrhea, nausea or vomiting Genitourinary Genitourinary ED: Denies dysuria or hematuria Musculoskeletal Musculoskeletal: Reports extremity pain; Denies back pain or neck pain Integumentary Denies abscess or rash Neurologic Neurologic: Denies headache(s), paresthesias or weakness Psychiatric Psychiatric: Denies anxiety or suicidal thoughts EXAM Physical Exam Const Vital Signs: 06/07/23 03:22 06/07/23 03:29 06/07/23 03:49 Temperature 98.7 F Temperature Source Oral Pulse Rate 83 84 Respiratory Rate 12 Respiratory Effort Normal Respiratory Depth Normal Respiratory Pattern Normal Blood Pressure 164/86 H 152/88 H Blood Pressure Mean 112 Pulse Ox 93 Oxygen Delivery Method Room Air Room Air 06/07/23 03:51 06/07/23 03:34 06/07/23 03:55 Temperature Temperature Source Pulse Rate 77 Respiratory Rate Respiratory Effort Normal Respiratory Depth Respiratory Pattern Normal Blood Pressure 130/70 H Blood Pressure Mean Pulse Ox Oxygen Delivery Method Room Air 06/07/23 04:08 Temperature Temperature Source Pulse Rate 86 Respiratory Rate Respiratory Effort Respiratory Depth Respiratory Pattern Blood Pressure 131/72 H Blood Pressure Mean Pulse Ox Oxygen Delivery Method Positive well nourished, well developed and obese General Appearance ED: well developed and NAD Nutritional Appearance: obese HEENT Reports moist mucous membranes normocephalic and atraumatic Eyes PERRL and EOMs intact bilaterally Neck full ROM, supple and no JVD Resp normal respiratory effort and clear to auscultation bilaterally Resp Narrative: no splinting w/ deep inspiration Cardio regular rate and no murmurs Rhythm: abnormal rhythm irregularly irregular Peripheral Pulses: pulses 2+ throughout GI non-tender and non-distended Auscultation: normoactive bowel sounds Palpation: soft Back/Spine no CVA tenderness General Back: other FROM Extremity normal to inspection General Extremety ED: Yes edema; Negative for pulses abnormal or tenderness General Extremity: edema bilateral lower extremity Details: mild; Negative for pulses abnormal Neuro oriented x3, CN's II-XII intact bilaterally and no sensory deficits noted Sensorium / Orientation: awake and alert Motor Exam: strength 5/5 throughout Skin no rashes or lesions noted and no wounds Heart Score History: Moderately Suspicious Age: >/= 65 years Risk Factors: >/= 3 Risk Factors or History of CAD Score: 5 MDM MDM MDM Narrative Medical decision making narrative: Patient appears to be in atrial fibrillation, his EKG is otherwise unremarkable,and unchanged compared with prior. In reviewing his old records, the A-fib is not new, it appears that he had several stents placed last October and is on clopidogrel but was taken off of aspirin and the stroke prophylactic Eliquis because of a GI bleed in the end of last year or 3 or 4 months ago, and he did have a monitor showing a 5.2- second pause while he was resting, so he apparentlyis being referred for EP evaluation not scheduled for pacemaker like the patientinitially suggested. Regardless he has had no syncopal episodes here recently and the lightheadedness he had when he sat up in bed is a common orthostatic symptoms for him. His vital signs are normal right now and we are working him up for ACS, with a delta troponin if the initial measurement is within normal limits. His right knee pain does not sound like anything acute and new. He does not have any signs or symptoms of a DVT and I do not think his chest discomfort sounds like a pulmonary embolism so I do not think he needs workup for that right now. Indeed the patient's second troponin measurement went down, arguing against acute coronary syndrome as etiology for his chest discomfort right now. He was given morphine and a nitroglycerin, he is pain-free with regards to his chest and arm discomfort, breathing normally, vital signs are stable with blood pressure 131/72 and his knee is feeling better. Will discharge him home with close outpatient follow-up, I did review outpatient cardiology visit from 1 weekago and he is to continue the clopidogrel as I am advising as well. History & Record Review Additional record(s) reviewed:: Prior outpatient record Lab Data Attestation: I reviewed the patient's lab results. Labs: Laboratory Results - last 24 hr 06/07/23 06/07/23 03:44 05:53 WBC 11.6 H RBC 4.14 L Hgb 10.7 L Hct 35.8 L MCV 86.5 MCH 25.8 L MCHC 29.9 L RDW Std Deviation 51.9 H RDW Coeff of Thao 16.5 H Plt Count 275 MPV 9.0 Immature Gran % (Auto) 0.800 Neut % (Auto) 81.8 H Lymph % (Auto) 3.7 L Alpine % (Auto) 12.4 H Eos % (Auto) 1.0 Baso % (Auto) 0.3 Absolute Neuts (auto) 9.5 H Absolute Lymphs (auto) 0.43 L Nucleated RBC % 0 Sodium 140 Potassium 3.3 L Chloride 108 H Carbon Dioxide 26.0 Anion Gap 6 BUN 31 H Creatinine 1.80 H Estim Creat Clear Calc 48.21 Est GFR (MDRD) Af Amer 49 L Est GFR (MDRD) Non-Af 40 L BUN/Creatinine Ratio 17.2 Glucose 126 H Calcium 9.7 Troponin I High Sens 38 37 Rhythm Strip Rhythm Strip: A-fib Rate: 85 Ectopy: None EKG Initial EKG: Attestation: I personally reviewed and interpreted this EKG as follows: Interpretation: No Acute Injury Pattern and Atrial Fibrillation Prior EKG tracings: available for review Prior: Unchanged Discharge Plan Triage Chief Complaint: Chest Pain Other Complaint: Lower Extremity Injury Shortness of Breath ED Provider: Brady Zaidi Dx/Rx/DC Orders Clinical Impression: Right knee sprain, Atrial fibrillation, Chest pain, unspecified Instructions: ED Chest Pain, Uncertain Cause Prescriptions: No Action (DME) Handicap Placard See Rx Instructions .ROUTE .MEDSUPPLY Qty: 1 0RF Rx Instructions: As directed, length of time 3 years (DME) FreeStyle Tiffanie 2 Riparius Misc See Rx Instructions .ROUTE .MEDSUPPLY Qty: 1 0RF Rx Instructions: As directed (DME) OneTouch Verio test strips Strip See Rx Instructions .ROUTE .MEDSUPPLY Qty: 100 12RF Rx Instructions: test 3 times daily cinacalcet 30 mg tablet 30 mg PO BID Qty: 60 8RF metoprolol succinate 50 mg tablet extended release 24 hr 50 mg PO Q12H Patient Comments: TAKE 1 TABLET BY MOUTH TWICE DAILY FOR BLOOD PRESSURE nitroglycerin 0.4 mg tablet, sublingual 0.4 mg sublingual Q5M PRN (Reason: chest pain) Rx Instructions: do not exceed 3 doses per episode albuterol sulfate 90 mcg/actuation HFA aerosol inhaler 2 puff inhalation Q6H PRN (Reason: shortness of breath or wheezing) potassium chloride 20 mEq tablet extended release 20 meq PO DAILY amlodipine 5 mg tablet 10 mg PO DAILY (DME) compress.stocking,knee,reg,lrg Misc See Rx Instructions .ROUTE .MEDSUPPLY Qty: 2 0RF Rx Instructions: Apply first thing in AM before ambulation (DME) [employer] Tiffanie 2 Sensor Kit See Rx Instructions .ROUTE .MEDSUPPLY Qty: 2 6RF Rx Instructions: As directed hydralazine 25 mg tablet 25 mg PO TID Qty: 90 2RF Ozempic 1 mg/dose (4 mg/3 mL) pen injector 1 mg SUBCUT QWEEK Patient Comments: INJECT 1MG (0.75ML) SUBCUTANEOUSLY EVERY WEEK oxycodone 5 mg Tablet 5 mg PO Q4H PRN PRN (Reason: Pain Score 6-10) 3 Days Qty: 20 0RF potassium chloride 20 mEq tablet,ER particles/crystals 20 meq PO BID Patient Comments: TAKE ONE (1) TABLET BY MOUTH TWICE DAILY FOR POTASSIUM (DME) pen needle, diabetic [BD Ultra-Fine Lorie Pen Needle] 32 gauge x / needle See Rx Instructions .ROUTE .MEDSUPPLY Qty: 360 5RF Rx Instructions: 4x/day cholecalciferol (vitamin D3) 1,250 mcg (50,000 unit) capsule 1,250 mcg PO QWEEK Qty: 8 6RF Hold Instructions: MD Ordered clopidogrel 75 mg tablet 75 mg PO DAILY Qty: 90 3RF fenofibrate micronized 200 mg capsule 200 mg PO DAILY Qty: 30 12RF losartan 25 mg tablet 25 mg PO DAILY Qty: 90 3RF Hold Instructions: until you see nephrology ranolazine 500 mg tablet extended release 12 hr 500 mg PO BID Qty: 180 3RF ferrous sulfate 325 mg (65 mg iron) tablet 325 mg PO DAILY Qty: 90 1RF furosemide 40 mg tablet 40 mg PO DAILY Qty: 30 1RF paroxetine HCl 40 mg tablet 40 mg PO DAILY Qty: 30 1RF pantoprazole 40 mg tablet,delayed release (DR/EC) 40 mg PO DAILY Qty: 30 0RF Rx Instructions: recently decreased from BID pantoprazole 40 mg tablet,delayed release (DR/EC) 40 mg PO DAILY Qty: 90 1RF sucralfate 1 gram tablet 1 g PO .QID 90 Days Qty: 360 1RF sucralfate 1 gram tablet 1 g PO .QID 30 Days Qty: 120 0RF Primary Care Provider: Mery Raymond Referrals: Robb Hua MD [Med Staff - Active Staff] - Mery Raymond MD [Primary Care Provider] - Disposition Disposition: Home, Self Care What to do if you have Problems For any increased pain, shortness of breath, bleeding, nausea or vomiting, chestpain, or any unexpected problems, contact your Primary Care Provider. Call [facility] ([phone]) or report to the closest Emergency Room. Call 911 if necessary. 06/07/23 0632 <Electronically signed by Brady Zaidi MD> Cosigner Signature (if applicable): CC: Dr. Mery Raymond MD; ANJEL Bearden ~ Signed [facility] Work Phone: 1(736) 328-257701-19-2024 Progress note Author Kassidy Velez [facility] April 28, 2023 12:31pm Note Date/Time April 28, 2023 1 2:31pm [facility] Medical Records Department [address] [place] [address] Progress Note - Hospitalist 04/28/23 1225 MR#: [id number] Acct: [id number] Name: SHADE TEIXEIRA Rep #:[id number] : 1955 67 From: Kassidy Velez MD PCP: Dr. Mery Raymond MD Status:A DM ZARIA Location: [place] [address] Reason for Visit Reason for Visit: Diagnoses Chest pain, unspecified (04/26/23) Difficulty in walking, not elsewhere classified (04/26/23) Dizziness and giddiness (04/26/23) Weakness (04/26/23) Unspecified fall, initial encounter (04/26/23) Subjective Subjective Patient still feeling weak, dizziness still comes and goes but is possibly somewhat better, still has some right-sided pain including his elbow from where he fell, O2 did go down slightly when he was ambulating with PT but recovered and patient did not feel more short of breath than baseline. Not having chest pain,no significant cough Objective Data Objective Data Vital Signs: Vital Signs Temp Pulse Resp BP Pulse Ox O2 Del Method O2 Flow Rate 97.9 F 71 15 133/85 H 97 Room Air 2 04/28/23 10:44 04/28/23 10:44 04/28/23 10:44 04/28/23 10:44 04/28/23 10:44 04/28/23 10:44 04/28/23 05:00 Oxygen Flow Rate (L/min) 2 Oxygen Delivery Method Room Air Weight: 107.3 kg Body Mass Index (BMI) 33.9 Intake & Output: Intake and Output for Last 24 Hours 04/26/23 04/27/23 04/28/23 23:59 23:59 23:59 Intake Total 3211 / 3433 444 / 444 Output Total 650 / 1050 1100 / 1600 650 / 650 Balance -650 / -828 2111 / 1833 -206 / -206 Lab / Micro Data 04/28/23 06:55 04/28/23 06:55 Labs: Laboratory Results - last 24 hr 04/27/23 16:27: POC Glucose 163 H 04/27/23 21:16: POC Glucose 167 H 04/28/23 06:35: POC Glucose 135 H 04/28/23 06:55: WBC 9.8, RBC 3.55 L, Hgb 9.6 L, Hct 31.6 L, MCV 89.0, MCH 27.0, MCHC 30.4 L, RDW Std Deviation 53.2 H, RDW Coeff of Thao 16.4 H, Plt Count 278, MPV 9.2, Immature Gran % (Auto) 0.400, Neut % (Auto) 81.4 H, Lymph % (Auto) 4.4 L, Alpine % (Auto) 11.9 H, Eos % (Auto) 1.4, Baso % (Auto) 0.5, Absolute Neuts (auto) 8.0 H, Absolute Lymphs (auto) 0.43 L, Nucleated RBC % 0, Differential Comment SCANNED, Sodium 141, Potassium 3.5, Chloride 110 H, Carbon Dioxide 27.0,Anion Gap 4 L, BUN 36 H, Creatinine 1.93 H, Estim Creat Clear Calc 46.18, Est GFR (MDRD) Af Amer 45 L, Est GFR (MDRD) Non-Af 37 L, BUN/Creatinine Ratio 18.7, Glucose 147 H, Calcium 10.5 H 04/28/23 11:11: POC Glucose 222 H Radiography Diagnostic Testing: Radiology Impression Chest X-Ray 04/28/23 11:00 IMPRESSION: No radiographic evidence of acute cardiopulmonary disease. Electronically Signed: Mahendra Blackman MD at 11:20 EST , Elbow X-Ray 04/28/23 11:00 IMPRESSION: No evidence of acute fracture. Soft tissue swelling posteriorly could reflect tendinitis. Electronically Signed: Mahendra Blackman MD at 11:43 EST , Physical Exam Narrative General: Alert, oriented, no apparent distress HEENT: Atraumatic, normocephalic Eyes: Anicteric, normal conjunctiva, extraocular movements grossly intact Neck: Supple Respiratory: Normal respiratory effort, faint crackles at left base Cardiovascular: Regular rate GI: Soft, nontender, nondistended Extremities: -Trace to 1+ peripheral edema Musculoskeletal: Moving all extremities Neuro: No overt focal neurological deficits Skin: Chronic changes in lower extremities Psych: Cooperative Assessment & Plan Assessment/Plan (1) Vertigo: (2) Fall: QUALIFIERS: Encounter type: initial encounter Qualified Code(s): W19.XXXA - Unspecified fall, initial encounter (3) Generalized weakness: (4) Ambulatory dysfunction: (5) Chest pain: QUALIFIERS: Chest pain type: unspecified Qualified Code(s): R07.9- Chest pain, unspecified PLAN: Plan #Acute vertigo with mechanical fall and persistent Right-sided soreness in the setting of known vertigo and near syncope - Admit to CDU under observation status. Give Antivert prn for breakthrough vertigo symptoms. PT/OT and case management to consult and treat with help to find a rehabilitation center appreciated in advance. -04/27: Continue to work with PT/OT, may need vestibular rehab on discharge, was receiving IV fluids, is beginning to feel better -04/28: Holding IV fluids to avoid overload, patient does feel better than when he came in but still feels generally debilitated, Avenue excepted and pre-CERT started #Hypoxemia in setting of chronic asthma -Briefly dropped down to 87% when ambulating with PT and recovered, patient did not report increased shortness of breath from baseline, chest x-ray unremarkable, suspect this may be chronic in nature. Follows with pulmonology, will likely need walk test prior to discharge -Patient is all so net positive with fluids, his Lasix have been resumed -Albuterol as needed #OA; with chronic bilateral knee and back pain complicating #1 - Noted. Give Tylenol prn for [id number] (level 1-5/10) pain or fever. Give Morphine IVprn for severe (level 6-10/10) pain. -04/27: As needed pain medication, discussed that patient cannot be on this medication upon discharge and he verbalizes understanding -04/28: When patient fell he reports he hurt his right elbow, x-ray obtained of this which showed some soft tissue edema without fracture or dislocation, will provide supportive care 3. Generalized weakness with ambulatory dysfunction arising from #1 & #2 - Patient only to be gotten up with assistance due to increased fall risk. -04/28: Continue to work with PT/OT 4. Obesity; with BMI of 33.9 this admission plus FAVIAN adding to the pathology of#1 - #3 - Weight loss will be recommended. Check TSH. 5. CAD; s/p multiple stents already on Ranolazine with negative cardiac evaluation in the ER earlier today - Continue home regimen as previous with patient on Plavix and Ranolazine plus prn SL NTG. Recent echocardiogram done in10/2022 noted with normal LVEF listed above. -04/27: Continue present medications 6. History of paroxysmal atrial fibrillation - Stable in NSR with full anticoagulation held due to increased risk of recurrent GI bleed. -04/27: Hemoglobin stable 7. History of GI bleed attributed to PUD - Noted. Avoid full-anticoagulation if possible to minimize risk of recurrent bleeding. -04/27: Hemoglobin stable 8. Essential hypertension - Resume home regimen as previous. 9. Hyperlipidemia - Continue statin. 10. DM-2; of unknown control - ADA diet. FSBS q. AC/HS plus SSI. Check [id number] objectively evaluate quality of diabetic control. 11. History of secondary pulmonary hypertension - Noted. 12. History of DVT/PE - Noted. 13. Chronic diastolic CHF; with preserved LVEF - Stable. -04/27: Had received fluids, is getting little bit edematous, resume home Lasix 14. LVH - Noted. 15. History of Seizures - Stable with no evidence of recurrence. 16. CKD; stage III - Stable. 17. Chronic anemia - Stable. 18. History of MRSA - Noted. Place on contact precautions. 19. Depression with anxiety - Continue home regimen as previous. 20. DVT prophylaxis - SCD's only with reports of recent GI bleed. Time spent in the patient's overall evaluation,decision-making process, review of diagnostic data, adjustment of management, discussion with other providers, nursing nursing and ancillary staff involved in patient's care documentation, 35minutes Charges/Coding Visit Charges Inpatient E&M: 31711 Subs Hosp L2 04/28/23 1231 <Electronically signed by Kassidy Velez MD> Cosigner Signature (if applicable): CC: ~ Signed [facility] Work Phone: 1(231) 904-485101-18-2024 Progress note Author Kassidy Velez [facility] April 27, 2023 6:58pm Note Date/Time April 27, 2023 6 :58pm [facility] Medical Records Department [address] [place] [address] Progress Note - Hospitalist 04/27/23 1855 MR#: [id number] Acct: [id number] Name: SHADE TEIXEIRA Praveen Rep #:[id number] : 1955 67 From: Kassidy Velez MD PCP: Dr. Mery Raymond MD Status:A DM ZARIA Location: [place] [address] Reason for Visit Reason for Visit: Diagnoses Chest pain, unspecified (04/26/23) Difficulty in walking, not elsewhere classified (04/26/23) Dizziness and giddiness (04/26/23) Weakness (04/26/23) Unspecified fall, initial encounter (04/26/23) Subjective Subjective Feeling somewhat better today though still weak, not presently having chest painor shortness of breath, dizziness improving Objective Data Objective Data Vital Signs: Vital Signs Temp Pulse Resp BP Pulse Ox O2 Del Method 97.6 F L 66 16 143/73 H 96 Room Air 04/27/23 16:35 04/27/23 16:35 04/27/23 16:35 04/27/23 16:35 04/27/23 16:35 04/27/23 16:35 Oxygen Delivery Method Room Air Weight: 107.3 kg Body Mass Index (BMI) 33.9 Intake & Output: Intake and Output for Last 24 Hours 04/25/23 04/26/23 04/27/23 23:59 23:59 23:59 Intake Total 2251 / 2251 Output Total 650 / 1050 1100 / 1100 Balance -650 / -828 1151 / 1151 Lab / Micro Data 04/27/23 07:00 04/27/23 07:00 Labs: Laboratory Results - last 24 hr 04/27/23 06:31: POC Glucose 105 04/27/23 07:00: WBC 6.8, RBC 3.54 L, Hgb 9.8 L, Hct 30.8 L, MCV 87.0, MCH 27.7, MCHC 31.8 L, RDW Std Deviation 51.8 H, RDW Coeff of Thao 16.5 H, Plt Count 305, MPV 9.3, Immature Gran % (Auto) 0.600, Neut % (Auto) 76.0 H, Lymph % (Auto) 7.4 L, Alpine % (Auto) 13.6 H, Eos % (Auto) 1.8, Baso % (Auto) 0.6, Absolute Neuts (auto) 5.1, Absolute Lymphs (auto) 0.50 L, Nucleated RBC % 0, Sodium 140, Potassium 3.2 L, Chloride 109 H, Carbon Dioxide 24.0, Anion Gap 7, BUN 45 H, Creatinine 2.02 H, Estim Creat Clear Calc 44.12, Est GFR (MDRD) Af Amer 43 L, Est GFR (MDRD) Non-Af 35 L, BUN/Creatinine Ratio 22.3 H, Glucose 103, Calcium 10.0, Phosphorus 3.3, Magnesium 1.9, Total Bilirubin 0.60, AST 25, ALT 26, Alkaline Phosphatase 54, Total Protein 6.5, Albumin 3.3, Globulin 3.2, Albumin/Globulin Ratio 1.0, TSH 2.65 04/27/23 11:25: POC Glucose 166 H Radiography Diagnostic Testing: Radiology Impression Brain CT 04/26/23 20:23 IMPRESSION: Small occipital scalp hematoma. No acute intracranial hemorrhage. Electronically Signed: Miquel Ramirez MD at 21:41 EST , Knee X-Ray 04/26/23 20:40 IMPRESSION: No acute fracture or dislocation. Severe arthrosis. Moderate joint effusion. Electronically Signed: Miquel Ramirez MD at 21:45 EST Reading Location ID and State: [employer] , Service support , Ribs w/Chest X-Ray 04/26/23 20:40 IMPRESSION: RIBS: Normal x-ray examination of the ribs. CHEST: Normal x-ray examination of the chest. Electronically Signed: Miquel Ramirez MD at 21:47 EST Reading Location ID and State: [employer] , Service support , Shoulder X-Ray 04/26/23 20:40 IMPRESSION: 1. No acute fracture or dislocation. 2. Severe glenohumeral joint arthrosis. 3. Moderate acromioclavicular joint arthrosis. Electronically Signed: Miquel Ramirez MD at 21:43 EST Reading Location ID and State: [employer] , Service support , Physical Exam Narrative General: Alert, oriented, no apparent distress HEENT: Atraumatic, normocephalic Eyes: Anicteric, normal conjunctiva, extraocular movements grossly intact Neck: Supple Respiratory: Clear to auscultation bilaterally, normal respiratory effort Cardiovascular: Regular rate GI: Soft, nontender, nondistended Extremities: Minimal edema Musculoskeletal: Moving all extremities Neuro: No overt focal neurological deficits Skin: No rashes appreciated Psych: Cooperative Assessment & Plan Assessment/Plan (1) Vertigo: (2) Fall: QUALIFIERS: Encounter type: initial encounter Qualified Code(s): W19.XXXA - Unspecified fall, initial encounter (3) Generalized weakness: (4) Ambulatory dysfunction: (5) Chest pain: QUALIFIERS: Chest pain type: unspecified Qualified Code(s): R07.9- Chest pain, unspecified PLAN: Plan 1. Acute vertigo with mechanical fall and persistent Right-sided soreness in the setting of known vertigo and near syncope - Admit to CDU under observation status. Give Antivert prn for breakthrough vertigo symptoms. PT/OT and case management to consult and treat with help to find a rehabilitation center appreciated in advance. -04/27: Continue to work with PT/OT, may need vestibular rehab on discharge, was receiving IV fluids, is beginning to feel better 2. OA; with chronic bilateral knee and back pain complicating #1 - Noted. GiveTylenol prn for [id number] (level 1-5/10) pain or fever. Give Morphine IVprn for severe (level 6-10/10) pain. -04/27: As needed pain medication, discussed that patient cannot be on this medication upon discharge and he verbalizes understanding 3. Generalized weakness with ambulatory dysfunction arising from #1 & #2 - Patient only to be gotten up with assistance due to increased fall risk. 4. Obesity; with BMI of 33.9 this admission plus FAVIAN adding to the pathology of#1 - #3 - Weight loss will be recommended. Check TSH. 5. CAD; s/p multiple stents already on Ranolazine with negative cardiac evaluation in the ER earlier today - Continue home regimen as previous with patient on Plavix and Ranolazine plus prn SL NTG. Recent echocardiogram done in10/2022 noted with normal LVEF listed above. -04/27: Continue present medications 6. History of paroxysmal atrial fibrillation - Stable in NSR with full anticoagulation held due to increased risk of recurrent GI bleed. -04/27: Hemoglobin stable 7. History of GI bleed attributed to PUD - Noted. Avoid full-anticoagulation if possible to minimize risk of recurrent bleeding. -04/27: Hemoglobin stable 8. Essential hypertension - Resume home regimen as previous. 9. Hyperlipidemia - Continue statin. 10. DM-2; of unknown control - ADA diet. FSBS q. AC/HS plus SSI. Check [id number] objectively evaluate quality of diabetic control. 11. History of secondary pulmonary hypertension - Noted. 12. History of DVT/PE - Noted. 13. Chronic diastolic CHF; with preserved LVEF - Stable. -04/27: Had received fluids, is getting little bit edematous, resume home Lasix 14. LVH - Noted. 15. History of Seizures - Stable with no evidence of recurrence. 16. CKD; stage III - Stable. 17. Chronic anemia - Stable. 18. History of MRSA - Noted. Place on contact precautions. 19. Depression with anxiety - Continue home regimen as previous. 20. DVT prophylaxis - SCD's only with reports of recent GI bleed. Time spent in the patient's overall evaluation,decision-making process, review of diagnostic data, adjustment of management, discussion with other providers, nursing nursing and ancillary staff involved in patient's care documentation, 35minutes Capacity Legal News Writer Reflex Medical hold order details:: IF a medical hold is selected below, a suggested order for a MEDICAL HOLD will reflex upon signing the document. Next of kin: [place] law dictates a PRIORITY LIST for identifying legal decision-maker/legal next of kin in the following order (LNOK): 1st: The patient?s legal guardian, if any 2nd: The patient's spouse (if status is questionable, consult Risk Management) 3rd: The patient?s adult child(more) (majority, if multiple children) 4th: The patient?s parents 5th: The patient?s adult siblings (majority, if multiple children siblings) Charges/Coding Visit Charges Inpatient E&M: 79092 Subs Hosp L2 04/27/23 1858 <Electronically signed by Kassidy Velez MD> Cosigner Signature (if applicable): CC: ~ Signed [facility] Work Phone: [phone] 123-730601-18-2024 History and physical note Author Maeve Black [facility] April 27, 2023 5:53am Note Date/Time April 26, 2023 1 0:19pm [facility] Medical Records Department [address] [place] [id number] H&P Exam - Hospitalist 04/26/237 MR#: [id number] Acct: [id number] Name: SHADE TEIXEIRA Rep #:[id number] : 1955 67 From: Maeve Schmitz DO PCP: Dr. Mery Raymond MD Status:A DM ZARIA Location: [place] [address] HPI - General General Date of Admission: 04/26/23 Date of Service: 04/26/23 Chief Complaint: Chest pain and Fall HPI Narrative SHADE TEIXEIRA, is a 67 with a past medical history of essential hypertension, hyperlipidemia, DM-2; of unknown control, obesity; with BMI of 33 this admission, FAVIAN, history of secondary pulmonary hypertension, history of DVT/PE, CAD; s/p multiple stents already on Ranolazine, history of paroxysmal atrial fibrillation, chronic diastolic CHF; with preserved LVEF, LVH, history of Seizures, CKD; stage III, chronic anemia, history of MRSA, history of near syncope, history of vertigo, depression with anxiety, OA; with chronic bilateralknee and back pain and history of GI bleed attributed to PUD who presents to [facility] ER complaining of chest pain and fall. Mr. Teixeira reports his symptoms began earlier in the afternoon today with intermittent chest pain that began at rest along with a corresponding transient fluttering sensation in his chest. His cardiac workup was negative and he was then discharged home from the ER via taxi after the nursing staff ambulated him and made sure he was safe to go. Unfortunately, after he was dropped off at home bythe taxi he quickly looked to his side causing him to become dizzy and then he took a few steps and fell onto his Right side striking his shoulder, ribs and knee. To add insult to injury he then allegedly had to lay in the snow for ~20- 30 minutes until his neighbor came out and checked on him. He denies LOC or significant head trauma with his fall. He denies related fever, chills, nausea,vomiting or diaphoresis but he is very interested in rehabilitation. In the ER he was diagnosed with suspected vertigo causing a mechanical fall after a negative cardiac evaluation earlier in the day and he was then admitted to the CDU under observation status for ongoing care for a stay that is expected to be less than 48 hours. [facility] Medical History (Updated 04/27/23 @ 01:[address] Maeve Noel, ) Abnormal chest xray Acquired left ventricular hypertrophy Acute midline thoracic back pain Adult failure to thrive Alcohol abuse Anemia Anxiety and depression Arthritis Asthma Atherosclerosis of coronary artery of [place] heart without angina pectoris Atrial fibrillation Benign essential HTN BiPAP (biphasic positive airway pressure) dependence Chest pain Chronic hypoxemic respiratory failure Chronic pain Chronic pain of both knees Chronic wound of head Colon cancer screening Congestive heart failure Congestive heart failure (CHF) Dark stools Debility Depression Depression Diabetes Dizziness MEANS (dyspnea on exertion) DVT (deep venous thrombosis) Dyspnea on exertion Essential (primary) hypertension Fatigue Gastric ulcer GERD (gastroesophageal reflux disease) GI bleed Health care maintenance Hearing loss, left Hearing loss, right Heart failure with preserved ejection fraction History of DVT (deep vein thrombosis) History of pulmonary embolism Hypercalcemia Hyperlipidemia Hyperparathyroidism Hypertension Hyperthyroidism Hypertriglyceridemia Hypoxia Insomnia Irregular heart beat Kidney stones Morbid obesity with BMI of 40.0-44.9, adult Near syncope Obesity Olecranon bursitis FAVIAN (obstructive sleep apnea) Osteoarthritis Osteopenia Primary hyperparathyroidism Pure hypercholesterolemia Renal insufficiency Sciatica Secondary pulmonary hypertension Seizures Shortness of breath Sleep apnea Stage 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 disease (CKD) Type 2 diabetes mellitus Vertigo Vision loss of left eye Vision loss of right eye Vitamin D deficiency Home Medications Handicap Placard #1 ea 04/08/20 [Rx Last Taken Unknown] flash glucose scanning reader (FashionStake Tiffanie 2 Riparius) #1 ea 02/16/21 [Rx Last Taken Unknown] pen needle, diabetic 32 gauge x 5/32 (BD Ultra-Fine Lorie Pen Needle) #360 ea 04/08/22 [Rx Last Taken Unknown] ferrous sulfate 325 mg (65 mg iron) tablet 325 mg PO DAILY #90 tabs 08/18/22 [Rx Last Taken 10/16/22] cholecalciferol (vitamin D3) 1,250 mcg (50,000 unit) capsule 1,250 mcg PO QWEEK #8 caps 09/07/22 [Rx Last Taken 10/10/22] clopidogrel 75 mg tablet 75 mg PO DAILY BLOOD THINNER #90 tabs 10/03/22 [Rx Last Taken 02/25/23] fenofibrate micronized 200 mg capsule 200 mg PO DAILY cholesterol #30 caps 10/20/22 [Rx Last Taken Unknown] losartan 25 mg tablet 25 mg PO DAILY blood pressure #90 tabs 12/08/22 [Rx Last Taken Unknown] ranolazine 500 mg tablet,extended release,12 hr 500 mg PO BID chest pain #180 tabs 12/20/22 [Rx Last Taken Unknown] pantoprazole 40 mg tablet,delayed release 40 mg PO BID #60 tabs 03/03/23 [Rx Last Taken Unknown] blood sugar diagnostic (OneTouch Verio test strips) #100 ea 03/07/23 [Rx Last Taken Unknown] cinacalcet 30 mg tablet 30 mg PO BID hypercalcemia #60 tabs 03/07/23 [Rx Last Taken Unknown] sucralfate 1 gram tablet 1 g PO 1HR_ACHS #1 TAB 03/18/23 [Rx Last Taken Unknown] albuterol sulfate 90 mcg/actuation aerosol inhaler 2 puff inhalation Q6H PRN shortness of breath or wheezing 04/14/23 [History Last Taken Unknown] amlodipine 5 mg tablet 10 mg PO DAILY 04/14/23 [History Last Taken Unknown] furosemide 40 mg tablet 40 mg PO DAILY 04/14/23 [History Last Taken Unknown] nitroglycerin 0.4 mg sublingual tablet 0.4 mg sublingual Q5M PRN chest pain 04/14/23 [History Last Taken Unknown] paroxetine HCl 40 mg tablet 40 mg PO DAILY 04/14/23 [History Last Taken Unknown] potassium chloride 20 mEq tablet,extended release 20 meq PO DAILY 04/14/23 [History Last Taken Unknown] compress.stocking,knee,reg,lrg #2 ea 04/15/23 [Rx Last Taken Unknown] flash glucose sensor (FreeStyle Tiffanie 2 Sensor kit) #2 ea 04/15/23 [Rx Last Taken Unknown] insulin regular hum U-500 conc 500 unit/mL(3 mL) subcut pen (Humulin R U-500 (Conc) Insulin Kwikpen) 30 unit subcut 04/26/23 [History Last Taken Unknown] metoprolol succinate 50 mg tablet,extended release 24 hr 50 mg PO Q12H 04/26/23 [History Last Taken Unknown] potassium chloride 20 mEq tablet,extended release(part/cryst) 20 meq PO BID 04/26/23 [History Last Taken Unknown] semaglutide 1 mg/dose (4 mg/3 mL) subcutaneous pen injector (Ozempic) 1 mg subcut QWEEK 04/26/23 [History Last Taken Unknown] Allergy/AdvReac Type Severity Reaction Status Date / Time No Known Allergies Allergy Verified 04/26/23 19:23 Family History Mother Colon cancer Sister CAD (coronary artery disease) CABG x 5 Diabetes Myocardial infarction, Onset Age: 67 Father Crohns disease Surgical History History of appendectomy History of appendectomy 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 Smoking Status: Never smoker second hand exposure: Yes alcohol intake: former year quit: 2003 details: Sober since 2003. substance use type: former substance user Date of last use: 04/10/2004 and marijuana caffeine: Yes Type: carbonated beverages Number of servings: 2 and coffee Number of servings: 2 what type of physical activity do you participate in: none ROS ROS Narrative Review of systems: Constitutional: Patient denies fever or chills. Eyes: Patient denies visual changes or discharge from eyes. ENT: Patient denies ear pain, sore throat or runny nose. Cardiovascular: Patient admits to chest pain and palpitations. Respiratory: Patient denies shortness of breath or cough. Gastrointestinal: Patient denies abdominal pain, nausea, vomiting, diarrhea or constipation. Genitourinary: Patient denies dysuria, hematuria or urinary frequency. Musculoskeletal: Patient admits to extensive right-sided pain in his shoulder ribs and knee since his fall. Integumentary: Patient denies significant abrasions or rash. Neurologic: Patient admits to generalized weakness but denies headache, paresthesias or focal neurologic weakness. Psychiatric: Patient denies uncontrolled depression or anxiety. Allergic: Patient denies lip swelling, tongue swelling or urticaria. 14 point review of systems otherwise negative except for positives noted above in HPI. Vital Signs Vital Signs Vital Signs: 04/26/23 19:15 04/26/23 20:23 Temperature 96.4 F L Temperature Source Temporal Pulse Rate 88 Respiratory Rate 15 Respiratory Effort Normal Respiratory Depth Normal Respiratory Pattern Normal Blood Pressure 124/91 H Blood Pressure Mean 102 Pulse Ox 94 Oxygen Delivery Method Room Air Room Air Physical Exam Const alert, oriented x3, no apparent distress and healthy appearing Constitutional Narrative: Patient appears morbidly obese and chronically ill. General Appearance: cooperative HEENT normocephalic, head/scalp atraumatic, hearing grossly normal bilaterally and moist oral mucous membranes Eyes PERRL and EOMs intact bilaterally Neck no lymphadenopathy and supple Resp normal respiratory effort, no retractions, no use of accessory muscles and clearto auscultation bilaterally Cardio regular rate and regular rhythm GI normal to inspection, nondistended, normoactive bowel sounds, soft to palpation,non-tender and non-distended GI Narrative: Morbidly obese. Extremity normal to inspection Skin Skin Narrative: Patient has no evidence of rash at this time. Neuro oriented x3, CN's II-XII intact bilaterally, moves all extremities and no focal motor deficits Sensorium / Orientation: awake, alert, oriented to person, oriented to place andoriented to time Speech: speech normal Motor Exam: strength 5/5 throughout Psych affect normal Results Medical Records Data Attestation: I reviewed the patient's medical records Lab / Micro Data Attestation: I reviewed the patient's lab results. Labs: [facility] [address] [place] [address] Echo Complete 10/21/22 1124 MR#: [id number] Acct: [id number] Name: SHADE TEIXEIRA Rep #: [id number] : 1955 66 From: Ty Rocha MD Attending Dr: Dr. Maeve Coreas MD Status: ADM IN Ordering Dr: Purvi Jensen MD Date: 10/21/22 Location: PCU Sex: M C Admitted: 10/21/22 Reason For Study: PAF, CHF Procedure This was a 2D Doppler, Color Flow transthoracic echocardiogram. Exam performed portable in patient room. Left Ventricle Normal left ventricle. The estimated ejection fraction is 55-60 %. Right Ventricle Normal right ventricle. Normal systolic function. Atria The left atrium is moderately enlarged. The right atrium is mildly enlarged. Mitral Valve There is mild to moderate mitral annular calcification. Moderate (2+) mitral valve insufficiency. Tricuspid Valve Normal tricuspid valve. Mild tricuspid valve insufficiency. Aortic Valve Normal aortic valve. Mild (1+) aortic valve insufficiency. Pulmonic Valve The pulmonic valve is not well visualized. Great Vessels Normal aortic root. Pericardium/Pleural No pericardial effusion. MMode/2D Measurements & Calculations LVIDd: 5.6 cm IVSd: 1.5 cm Ao root diam: 3.8 cm LVIDs: 3.5 cm LVPWd: 0.95 cm LA dimension: 5.0 cm RVDd: 4.2 cm FS: 37.6 % _ LAV(MOD-bp): 88.1 ml LA A4 area: 25.8 cm2 LA dimension(2D): 5.5 cm LAV(MOD-bp) Indexed: 37.4 ml/m2 LAV(MOD-sp2): 86.7 ml LAV(MOD-sp4): 79.2 ml _ RA A4 area: 23.1 cm2 Time Measurements MV dec time: 0.18 sec Doppler Measurements & Calculations MV E max alexy: 83.5 cm/sec Ao V2 max: 127.1 cm/sec AI max alexy: 321.2 cm/sec Ao max P.5 mmHg AI max P.3mmHg Ao V2 mean: 83.6 cm/sec AI dec slope: 137.4 cm/sec2 Ao mean P.3 mmHg AI P1/2t: 684.5msec Ao V2 VTI: 24.0 cm AV (velocity ratio): 0.76 _ LV V1 max: 91.7 cm/sec PA V2 max: 78.6 cm/sec TR max alexy: 306.6 cm/sec LV V1 max P.4 mmHg TR max P.6mmHg LV V1 mean P.9 mmHg LV V1 mean: 66.0 cm/sec LV V1 VTI: 18.3 cm ECHO/Echo Complete Interpretation Summary The estimated ejection fraction is 55-60 %. Normal LV systolic function Moderate MR In comparison to the echo in May 19, 2021 moderate MR noted. Ordering Physician: Purvi Jensen Referring Physician: Mery Raymond Performed By: Sarah Mendez, SAMARIA, RVT 10/21/22 1602 Date Ty Rocha MD CC: Dr. Purvi Jensen MD; Dr. Maeve Coreas MD; Dr. Mery Raymond MD ~ Date Dictated: 10/21/22 1124 Date Transcribed: 10/21/22 160 Joint Maker Machine: Signed Imagaing Radiology Impression Brain CT 04/26/23 20:23 IMPRESSION: Small occipital scalp hematoma. No acute intracranial hemorrhage. Electronically Signed: Miquel Ramirez MD at 21:41 EST Reading Location ID and State: 140 / [employer] , Service support , Knee X-Ray 04/26/23 20:40 IMPRESSION: No acute fracture or dislocation. Severe arthrosis. Moderate joint effusion. Electronically Signed: Miquel Ramirez MD at 21:45 EST Reading Location ID and State: [id number] / [employer] , Service support , Ribs w/Chest X-Ray 04/26/23 20:40 IMPRESSION: RIBS: Normal x-ray examination of the ribs. CHEST: Normal x-ray examination of the chest. Electronically Signed: Miquel Ramirez MD at 21:47 EST Reading Location ID and State: [id number] / [employer] , Service support , Shoulder X-Ray 04/26/23 20:40 IMPRESSION: 1. No acute fracture or dislocation. 2. Severe glenohumeral joint arthrosis. 3. Moderate acromioclavicular joint arthrosis. Electronically Signed: Miquel Ramirez MD at 21:43 EST , Assessment & Plan Assessment/Plan (1) Vertigo: (2) Fall: QUALIFIERS: Encounter type: initial encounter Qualified Code(s): W19.XXXA - Unspecified fall, initial encounter (3) Generalized weakness: (4) Ambulatory dysfunction: (5) Chest pain: QUALIFIERS: Chest pain type: unspecified Qualified Code(s): R07.9- Chest pain, unspecified PLAN: Plan 1. Acute vertigo with mechanical fall and persistent Right-sided soreness in the setting of known vertigo and near syncope - Admit to CDU under observation status. Give Antivert prn for breakthrough vertigo symptoms. PT/OT and case management to consult and treat with help to find a rehabilitation center appreciated in advance. 2. OA; with chronic bilateral knee and back pain complicating #1 - Noted. GiveTylenol prn for [id number] (level 1-5/10) pain or fever. Give Morphine IVprn for severe (level 6-10/10) pain. 3. Generalized weakness with ambulatory dysfunction arising from #1 & #2 - Patient only to be gotten up with assistance due to increased fall risk. 4. Obesity; with BMI of 33.9 this admission plus FAVIAN adding to the pathology of#1 - #3 - Weight loss will be recommended. Check TSH. 5. CAD; s/p multiple stents already on Ranolazine with negative cardiac evaluation in the ER earlier today - Continue home regimen as previous with patient on Plavix and Ranolazine plus prn SL NTG. Recent echocardiogram done in10/2022 noted with normal LVEF listed above. 6. History of paroxysmal atrial fibrillation - Stable in NSR with full anticoagulation held due to increased risk of recurrent GI bleed. 7. History of GI bleed attributed to PUD - Noted. Avoid full-anticoagulation if possible to minimize risk of recurrent bleeding. 8. Essential hypertension - Resume home regimen as previous. 9. Hyperlipidemia - Continue statin. 10. DM-2; of unknown control - ADA diet. FSBS q. AC/HS plus SSI. Check [id number] objectively evaluate quality of diabetic control. 11. History of secondary pulmonary hypertension - Noted. 12. History of DVT/PE - Noted. 13. Chronic diastolic CHF; with preserved LVEF - Stable. 14. LVH - Noted. 15. History of Seizures - Stable with no evidence of recurrence. 16. CKD; stage III - Stable. 17. Chronic anemia - Stable. 18. History of MRSA - Noted. Place on contact precautions. 19. Depression with anxiety - Continue home regimen as previous. 20. DVT prophylaxis - SCD's only with reports of recent GI bleed. Total time: Approximately 45 minutes. Charges/Coding Visit Charges OBSV E&M: 17797 Observ/hosp same date L1 04/27/23 0553 <Electronically signed by Maeve Noel DO> Cosigner Signature (if applicable): CC: Dr. Maeve Noel DO; Dr. Mery Raymond MD~ Signed [facility] Work Phone: 1(321) 373-257201-18-2024 Discharge summary Author Jaja Boudreaux [facility] April 26, 2023 11:19pm Note Date/Time April 26, 2023 8 :26pm [facility] Medical Records Department [address] [place] [address] Emergency Department Summary 04/26/23 MR#: [id number] Acct: [id number] Name: SHADE TEIXEIRA Rep #:[id number] : 1955 67 From: Jaja Boudreaux MD PCP: Dr. Mery Raymond MD Status:A DM ZARIA Location: [place] [address] HPI HPI - Fall History of Present Illness Chief Complaint: Fall Informant: patient Occured/Mechanism Occurred: Today Narrative Narrative: Patient presents after a fall at home. Patient was in the emergency room this afternoon being evaluated for intermittent chest pain with a fluttering sensation in his chest. He has a history of paroxysmal A-fib. His cardiac workup was negative. Nursing staff did get him up and ambulate him in the emergency room to ensure he was safe on his feet and he did well with ambulationper nursing report. Patient states that he was getting out of his taxi at home,took a few steps and became dizzy and weak and fell. He struck his right shoulder, right ribs, and right knee. He states he laid in the snow for 20 or 30 minutes until his neighbor checked on him. He does not believe he hit his head and does not believe he got knocked out. [facility] Medical History Abnormal chest xray Acquired left ventricular hypertrophy Acute midline thoracic back pain Adult failure to thrive Anemia Anxiety and depression Arthritis Asthma Atherosclerosis of coronary artery of [place] heart without angina pectoris Atrial fibrillation Benign essential HTN Chest pain Chronic hypoxemic respiratory failure Chronic pain of both knees Chronic wound of head Colon cancer screening Congestive heart failure Dark stools Debility Depression Diabetes Dizziness MEANS (dyspnea on exertion) Dyspnea on exertion Essential (primary) hypertension Fatigue Gastric ulcer GI bleed Health care maintenance Heart failure with preserved ejection fraction History of DVT (deep vein thrombosis) History of pulmonary embolism Hypercalcemia Hyperlipidemia Hyperparathyroidism Hypertriglyceridemia Hypoxia Insomnia Morbid obesity with BMI of 40.0-44.9, adult Near syncope Obesity Olecranon bursitis FAVIAN (obstructive sleep apnea) Osteoarthritis Osteopenia Primary hyperparathyroidism Pure hypercholesterolemia Renal insufficiency Sciatica Secondary pulmonary hypertension Seizures Shortness of breath Stage 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 disease (CKD) Type 2 diabetes mellitus Vertigo Vitamin D deficiency Home Medications Handicap Placard #1 ea 04/08/20 [Rx Last Taken Unknown] flash glucose scanning reader (F[employer]Stake Tiffanie 2 Riparius) #1 ea 02/16/21 [Rx Last Taken Unknown] pen needle, diabetic 32 gauge x /32 (BD Ultra-Fine Lorie Pen Needle) #360 ea 04/08/22 [Rx Last Taken Unknown] ferrous sulfate 325 mg (65 mg iron) tablet 325 mg PO DAILY #90 tabs 08/18/22 [Rx Last Taken 10/16/22] cholecalciferol (vitamin D3) 1,250 mcg (50,000 unit) capsule 1,250 mcg PO QWEEK #8 caps 09/07/22 [Rx Last Taken 10/10/22] clopidogrel 75 mg tablet 75 mg PO DAILY BLOOD THINNER #90 tabs 10/03/22 [Rx Last Taken 02/25/23] fenofibrate micronized 200 mg capsule 200 mg PO DAILY cholesterol #30 caps 10/20/22 [Rx Last Taken Unknown] losartan 25 mg tablet 25 mg PO DAILY blood pressure #90 tabs 12/08/22 [Rx Last Taken Unknown] ranolazine 500 mg tablet,extended release,12 hr 500 mg PO BID chest pain #180 tabs 12/20/22 [Rx Last Taken Unknown] pantoprazole 40 mg tablet,delayed release 40 mg PO BID #60 tabs 03/03/23 [Rx Last Taken Unknown] blood sugar diagnostic (Sola[employer]uch Verio test strips) #100 ea 03/07/23 [Rx Last Taken Unknown] cinacalcet 30 mg tablet 30 mg PO BID hypercalcemia #60 tabs 03/07/23 [Rx Last Taken Unknown] sucralfate 1 gram tablet 1 g PO 1HR_ACHS #1 TAB 03/18/23 [Rx Last Taken Unknown] albuterol sulfate 90 mcg/actuation aerosol inhaler 2 puff inhalation Q6H PRN shortness of breath or wheezing 04/14/23 [History Last Taken Unknown] amlodipine 5 mg tablet 10 mg PO DAILY 04/14/23 [History Last Taken Unknown] furosemide 40 mg tablet 40 mg PO DAILY 04/14/23 [History Last Taken Unknown] nitroglycerin 0.4 mg sublingual tablet 0.4 mg sublingual Q5M PRN chest pain 04/14/23 [History Last Taken Unknown] paroxetine HCl 40 mg tablet 40 mg PO DAILY 04/14/23 [History Last Taken Unknown] potassium chloride 20 mEq tablet,extended release 20 meq PO DAILY 04/14/23 [History Last Taken Unknown] compress.stocking,knee,reg,lrg #2 ea 04/15/23 [Rx Last Taken Unknown] flash glucose sensor (FreeStyle Tiffanie 2 Sensor kit) #2 ea 04/15/23 [Rx Last Taken Unknown] insulin regular hum U-500 conc 500 unit/mL(3 mL) subcut pen (Humulin R U-500 (Conc) Insulin Kwikpen) 30 unit subcut 04/26/23 [History Last Taken Unknown] metoprolol succinate 50 mg tablet,extended release 24 hr 50 mg PO Q12H 04/26/23 [History Last Taken Unknown] potassium chloride 20 mEq tablet,extended release(part/cryst) 20 meq PO BID 04/26/23 [History Last Taken Unknown] semaglutide 1 mg/dose (4 mg/3 mL) subcutaneous pen injector (Ozempic) 1 mg subcut QWEEK 04/26/23 [History Last Taken Unknown] Allergy/AdvReac Type Severity Reaction Status Date / Time No Known Allergies Allergy Verified 04/26/23 19:23 Family History Mother Colon cancer Sister CAD (coronary artery disease) CABG x 5 Diabetes Myocardial infarction, Onset Age: 67 Father Crohns disease Surgical History History of appendectomy 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) History of coronary artery stent placement (10/21/22) History of eye surgery History of hip replacement History of intestinal surgery History of knee surgery History of tonsillectomy and adenoidectomy Social History household members: none housing: apartment other: Hx working in [employer] and [employer]. Smoking Status: Never smoker second hand exposure: Yes alcohol intake: former year quit: 2003 details: Sober since 2003. substance use type: former substance user Date of last use: 04/10/2004 and marijuana caffeine: Yes Type: carbonated beverages Number of servings: 2 and coffee Number of servings: 2 what type of physical activity do you participate in: none ROS ROS ED Constitutional Constitutional ED: Denies chills or fever(s) Eyes Eyes: Denies discharge from eye(s) ENT ENT ED: Denies discharge from eye(s), rhinorrhea or sore throat Cardiovascular Cardiovascular: Reports chest pain and palpitations Respiratory/Chest Respiratory/Chest: Reports dyspnea; Denies cough Gastrointestinal Gastrointestinal: Denies abdominal pain, nausea or vomiting Genitourinary Genitourinary ED: Denies dysuria Musculoskeletal Musculoskeletal: Denies back pain or extremity pain Integumentary Denies Abrasions or rash Neurologic Neurologic: Reports weakness; Denies headache(s) Psychiatric Psychiatric: Denies anxiety or depression Allergic/Immunologic Allergic/Immunologic ED: Denies lip swelling or urticaria EXAM Physical Exam Const Vital Signs: 04/26/23 19:15 04/26/23 20:23 Temperature 96.4 F L Temperature Source Temporal Pulse Rate 88 Respiratory Rate 15 Respiratory Effort Normal Respiratory Depth Normal Respiratory Pattern Normal Blood Pressure 124/91 H Blood Pressure Mean 102 Pulse Ox 94 Oxygen Delivery Method Room Air Room Air Positive obese Nutritional Appearance: obese HEENT Reports normocephalic HEENT Narrative: Old appearing abrasion to the right lateral forehead. Eyes EOMs intact bilaterally Neck full ROM Chest Wall inspection of chest normal Chest Narrative: Mild right-sided rib tenderness. No crepitus. Resp normal respiratory effort and clear to auscultation bilaterally Cardio regular rate and regular rhythm GI non-tender Extremity Extremity Narrative: Scattered abrasions and scabs noted on the lower extremities. No focal tenderness with palpation over the knee. Good range of motion. Neuro oriented x3 and moves all extremities Neuro Narrative: No focal neurologic deficit. Psych mental status grossly normal MDM MDM MDM Narrative Medical decision making narrative: Given the patient reported that he was dizzy when he fell he was placed on shelter monitor and repeat EKG will be obtained at this time. Patient be sent for CT scan of the head to evaluate for fracture, bleed, edema. X-rays of the right shoulder, right ribs, and right knee will be obtained to evaluate for fracture or injury. Radiography Diagnostic Testing: Clinical Impression(s) from Imaging Studies Brain CT 04/26/23 20:23 IMPRESSION: Small occipital scalp hematoma. No acute intracranial hemorrhage. Electronically Signed: Miquel Ramirez MD at 21:41 EST , Knee X-Ray 04/26/23 20:40 IMPRESSION: No acute fracture or dislocation. Severe arthrosis. Moderate joint effusion. Electronically Signed: Miquel Ramirez MD at 21:45 EST , Ribs w/Chest X-Ray 04/26/23 20:40 IMPRESSION: RIBS: Normal x-ray examination of the ribs. CHEST: Normal x-ray examination of the chest. Electronically Signed: Miquel Ramirez MD at 21:47 EST Reading Location ID and State: [id number] / [employer] , Service support , Shoulder X-Ray 04/26/23 20:40 IMPRESSION: 1. No acute fracture or dislocation. 2. Severe glenohumeral joint arthrosis. 3. Moderate acromioclavicular joint arthrosis. Electronically Signed: Miquel Ramirez MD at 21:43 EST Reading Location ID and State: [employer] / [employer] , Service support , Treatment and Re-Evaluation Narrative: Right shoulder x-ray per my interpretation reveals chronic arthritic changes with no evidence of fracture or dislocation. Radiology interpretation reviewed and agrees. Right rib x-rays per my interpretation reveal no obvious displaced rib fracture and no pneumothorax. Radiology interpretation reviewed and agrees. Right knee x-ray per my interpretation reveals chronic changes with arthritis. Radiology interpretation reviewed. They agree with the addition of a moderate joint effusion. Patient's EKG is A-fib at 80 with no evidence of ischemia. Given the patient has had 2 visits to the ER today and was too weak to make it into his home tonight I will speak with hospitalist regarding admission. Discharge Plan Triage Chief Complaint: Fall ED Provider: Jaja Boudreaux Dx/Rx/DC Orders Clinical Impression: Intermittent chest pain, Dizziness, Fall Prescriptions: No Action (DME) Handicap Placard See Rx Instructions .ROUTE .MEDSUPPLY Qty: 1 0RF Rx Instructions: As directed, length of time 3 years (DME) FreeStyle Tiffanie 2 Riparius [facility] [place] See Rx Instructions .ROUTE .MEDSUPPLY Qty: 1 0RF Rx Instructions: As directed ferrous sulfate 325 mg (65 mg iron) tablet 325 mg PO DAILY Qty: 90 1RF (DME) OneTouch Verio test strips Strip See Rx Instructions .ROUTE .MEDSUPPLY Qty: 100 12RF Rx Instructions: test 3 times daily cinacalcet 30 mg tablet 30 mg PO BID Qty: 60 8RF furosemide 40 mg tablet 40 mg PO DAILY nitroglycerin 0.4 mg tablet, sublingual 0.4 mg sublingual Q5M PRN (Reason: chest pain) Rx Instructions: do not exceed 3 doses per episode albuterol sulfate 90 mcg/actuation HFA aerosol inhaler 2 puff inhalation Q6H PRN (Reason: shortness of breath or wheezing) paroxetine HCl 40 mg tablet 40 mg PO DAILY potassium chloride 20 mEq tablet extended release 20 meq PO DAILY amlodipine 5 mg tablet 10 mg PO DAILY (DME) compress.stocking,knee,reg,lrg Misc See Rx Instructions .ROUTE .MEDSUPPLY Qty: 2 0RF Rx Instructions: Apply first thing in AM before ambulation (DME) [employer] Tiffanie 2 Sensor Kit See Rx Instructions .ROUTE .MEDSUPPLY Qty: 2 6RF Rx Instructions: As directed sucralfate 1 gram Tablet 1 g PO 1HR_ACHS Qty: 1 0RF Humulin R U-500 (Conc) Kwikpen 500 unit/mL (3 mL) insulin pen 30 unit SUBCUT Patient Comments: inject 30 units subcutaneously three times a day; has been taking 20 units d/t decreasing sugar too much potassium chloride 20 mEq tablet,ER particles/crystals 20 meq PO BID Patient Comments: TAKE ONE (1) TABLET BY MOUTH TWICE DAILY FOR POTASSIUM Ozempic 1 mg/dose (4 mg/3 mL) pen injector 1 mg SUBCUT QWEEK Patient Comments: INJECT 1MG (0.75ML) SUBCUTANEOUSLY EVERY WEEK metoprolol succinate 50 mg tablet extended release 24 hr 50 mg PO Q12H Patient Comments: TAKE 1 TABLET BY MOUTH TWICE DAILY FOR BLOOD PRESSURE pantoprazole 40 mg Tablet,Delayed Release (Dr/Ec) 40 mg PO BID Qty: 60 2RF Rx Instructions: Take 40 mg twice daily for 8 weeks then decrease dose to 40 mg daily (DME) pen needle, diabetic [BD Ultra-Fine Lorie Pen Needle] 32 gauge x 5/32 needle See Rx Instructions .ROUTE .MEDSUPPLY Qty: 360 5RF Rx Instructions: 4x/day cholecalciferol (vitamin D3) 1,250 mcg (50,000 unit) capsule 1,250 mcg PO QWEEK Qty: 8 6RF Hold Instructions: MD Ordered clopidogrel 75 mg tablet 75 mg PO DAILY Qty: 90 3RF fenofibrate micronized 200 mg capsule 200 mg PO DAILY Qty: 30 12RF losartan 25 mg tablet 25 mg PO DAILY Qty: 90 3RF Hold Instructions: until you see nephrology ranolazine 500 mg tablet extended release 12 hr 500 mg PO BID Qty: 180 3RF Primary Care Provider: Mery Raymond Referrals: Mery Raymond MD [Primary Care Provider] - Disposition Disposition: Acute Care [facility] Capacity Legal News Writer Reflex Medical hold order details:: IF a medical hold is selected below, a suggested order for a MEDICAL HOLD will reflex upon signing the document. Next of kin: [place] law dictates a PRIORITY LIST for identifying legal decision-maker/legal next of kin in the following order (LNOK): 1st: The patient?s legal guardian, if any 2nd: The patient's spouse (if status is questionable, consult Risk Management) 3rd: The patient?s adult child(more) (majority, if multiple children) 4th: The patient?s parents 5th: The patient?s adult siblings (majority, if multiple children siblings) What to do if you have Problems For any increased pain, shortness of breath, bleeding, nausea or vomiting, chestpain, or any unexpected problems, contact your Primary Care Provider. Call [facility] ([phone]) or report to the closest Emergency Room. Call 911 if necessary. 04/26/233 <Electronically signed by Jaja Boudreaux MD> Cosigner Signature (if applicable): CC: Dr. Mery Raymond MD ~ Signed [facility] Work Phone: [phone] 539-723511-24-2023 Discharge summary Author Cornelia Burns [facility] March 03, 2023 1:01pm Note Date/Time March 03, 2023 12:42pm [facility] Medical Records Department [address] [place] [id number] Discharge Summary 03/03/23 1241 MR#: [id number] Acct: [id number] Name: SHADE TEIXEIRA Rep #:[id number] : 1955 67 From: Cornelia Burns DO PCP: Dr. Mery Raymond MD Status:A DM IN Location: [place] [address] 1 Providers Date of Admission: 02/26/23 Date of Discharge: 03/03/23 Primary Care Physician: Dr. Mery Raymond MD Consultations 02/27/23 12:54 Consult: Gastroenterology Routine Consulting Provider: [facility] Reason for Consult: Upper GI bleed EMERGENT Consult: Yes MD Notified: Yes Date Notified: 02/27/23 Time Notified: 13:03 Method of Notification: Text Reason For Visit: ACUTE ON CHRONIC HEART FAILURE WITH PRESERVED EF Diagnosis Discharge Diagnosis (1) GI bleed: Status: Acute Code(s): K92.2 - Gastrointestinal hemorrhage, unspecified Qualifiers: GI bleed type/associated pathology: unspecified gastrointestinal hemorrhage type Qualified Code(s): K92.2 - Gastrointestinal hemorrhage, unspecified (2) Heart failure with preserved ejection fraction: Status: Acute Code(s): I50.30 - Unspecified diastolic (congestive) heart failure Qualifiers: Heart failure chronicity: acute on chronic Qualified Code(s): I50.33 - Acute on chronic diastolic (congestive) heart failure Plan Shortness of breath secondary to decompensated heart failure with preserved ejection fraction -Patient was found to be noncompliant on presentation and had been out of Lasix for several days -Has diuresed well with over 6 L of diuresis during his hospital course -Echocardiogram from 10/21/2022 showed an EF of 55 to 60% with mild MR -Lasix on hold today due to orthostatic positive vital signs -Will plan to restart Lasix with prescription to be reinitiated at discharge -Continue fluid restriction but changed to 1750 cc -Continue daily weights -Continue sodium restriction Hypoxia -Resolved -Patient is currently weaned to room air -Will check ambulatory pulse ox prior to discharge Lightheadedness with orthostatic positive vital signs -Patient was gently rehydrated with 1 L of IV fluids as I suspect he may have had a bit of overdiuresis but remains orthostatic positive and symptomatic -We will give 1 more unit of packed red blood cells as this may be contributing -Recheck orthostatic vital signs in a.m. -Hold Lasix today and plan to restart tomorrow Acute on chronic anemia -Baseline hemoglobin appears to run between 12.5 and 14 -Most recent hemoglobin was 7.7 -Status post 2 units packed red blood cells -Since patient is orthostatic positive with symptoms we will give 1 more unit ofpacked red blood cells to see if this does not help with his orthostasis -Repeat CBC in a.m. GI bleed secondary to gastric ulcer -Status post EGD on 02/28/2023 with heater probe treatment and injection -Continue Protonix 40 mg p.o. twice daily for 8 weeks then transition to 1 time daily -Continue Carafate as ordered for 6 weeks -GI follow-up after discharge CKD--> baseline unclear -Serum creatinine in October of this year was between 1.4 and 1.7 -Serum creatinine on admission was 2.74 and has been fairly stable throughout his hospital course at this level -Will need nephrology referral at discharge -Urine output has been good -If creatinine stays stable where it is we will recommend outpatient follow-up if worsens will proceed with further evaluation while hospitalized FAVIAN -Encourage CPAP use CAD/HTN/HPL -Continue home medication -Patient with previous coronary artery stenting -Continue aspirin and Plavix as patient had his most recent cardiac stent in 10/2022--> this was a drug-eluting stent and require 1 year of dual antiplatelet therapy at which time he should be reevaluated for discontinuation of either hisaspirin and Plavix DM-2 -Oral home agents on hold -Continue subcu insulins -Accu-Cheks as ordered -SSI -AM fasting blood sugar was 115 today History of hyperglycemia secondary to hyperparathyroidism -Continue home medication -Current calcium is within normal limits Chronic pain -Avoid NSAIDs -As needed Tylenol available Depression/anxiety -Continue home paroxetine Obesity -Weight is 34.7 kg -Recommend weight loss -Complicates treatment, prognosis, outcomes DVT prophylaxis -Will start heparin 3 times daily CODE STATUS Full Code Medications at Discharge Home Medications Handicap Placard #1 ea 04/08/20 flash glucose scanning reader (FreeStyle Tiffanie 2 Riparius) #1 ea 02/16/21 flash glucose sensor (FreeStyle Tiffanie 2 Sensor kit) #2 ea 02/16/21 pen needle, diabetic 32 gauge x 5/32 (BD Ultra-Fine Lorie Pen Needle) #360 ea 04/08/22 ferrous sulfate 325 mg (65 mg iron) tablet 325 mg PO DAILY #90 tabs 08/18/22 blood sugar diagnostic (OneTouch Verio test strips) #100 ea 09/06/22 cholecalciferol (vitamin D3) 1,250 mcg (50,000 unit) capsule 1,250 mcg PO QWEEK #8 caps 09/07/22 metoprolol succinate 50 mg tablet,extended release 24 hr 50 mg PO BID BLOOD PRESSURE #180 tabs 09/21/22 clopidogrel 75 mg tablet 75 mg PO DAILY BLOOD THINNER #90 tabs 10/03/22 tramadol 50 mg tablet 50 mg PO Q6H PRN PRN Pain Score 6-10 3 days #10 tabs 10/18/22 acetaminophen 650 mg rectal suppository 650 mg MA Q4H PRN fever or pain 10/20/22 aluminum-magnesium hydroxide 225 mg-200 mg/5 mL oral suspension 30 ml PO DAILY PRN GI DISTRESS 10/20/22 bisacodyl 10 mg rectal suppository 10 mg MA DAILY PRN constipation 10/20/22 dextrose 40 % oral gel (Glucose Gel) 15 g PO Q15M PRN hypoglycemia 10/20/22 fenofibrate micronized 200 mg capsule 200 mg PO DAILY cholesterol #30 caps 10/20/22 glucagon HCl 1 mg solution for injection (Glucagon (HCl) Emergency Kit) 1 mg IM Q20M PRN hypoglycemia 10/20/22 guaifenesin 200 mg/5 mL oral liquid 200 mg PO Q4H PRN congestion 10/20/22 magnesium hydroxide 400 mg/5 mL oral suspension (Milk of Magnesia) 30 ml PO DAILY PRN constipation 10/20/22 sodium phosphates 19 gram-7 gram/118 mL enema (Enema) 118 ml MA DAILY PRN constipation 10/20/22 insulin glargine 100 unit/mL (3 mL) subcutaneous pen (Lantus Solostar U-100 Insulin) 7 unit (0.07 mL) subcut DAILY #15 mL 10/27/22 potassium chloride 20 mEq tablet,extended release(part/cryst) 20 meq PO BID potassium 90 days #540 tabs 11/09/22 amlodipine 10 mg tablet 10 mg PO DAILY BLOOD PRESSURE #90 tabs 11/18/22 losartan 25 mg tablet 25 mg PO DAILY blood pressure #90 tabs 12/08/22 ranolazine 500 mg tablet,extended release,12 hr 500 mg PO BID chest pain #180 tabs 12/20/22 Ozempic 1 mg/dose (4 mg/3 mL) subcutaneous pen injector (semaglutide) 1 mg (0.75mL) subcut QWEEK weight loss #3 mL 12/28/22 nitroglycerin 0.4 mg sublingual tablet See Rx Instructions .Route .COMPLEX chestpain #25 tabs 01/18/23 paroxetine HCl 40 mg tablet 40 mg PO DAILY depression #90 tabs 02/09/23 insulin regular hum U-500 conc 500 unit/mL(3 mL) subcut pen (Humulin R U-500 (Conc) Insulin Kwikpen) 30 unit subcut .TIDCM blood sugar 02/26/23 cinacalcet 30 mg tablet 30 mg PO BID hypercalcemia #60 tabs 03/03/23 furosemide 20 mg tablet 40 mg (2 x 20 mg) PO BID 90 days #60 tabs 03/03/23 pantoprazole 40 mg tablet,delayed release 40 mg PO BID #60 tabs 03/03/23 sucralfate 1 gram tablet 1 g PO 0700,1100,1600 #90 tabs 03/03/23 Hospital Course Summary of Care Provided Minutes Spent on Discharge: 39 Hospital Course: Mr. Teixeira is a 67-year-old male who presented to the emergency department at [facility] on 02/26/2023 complaining of 1 week history of shortness of breath. Approximately 30 minutes prior to presentation his shortness of breath acutely increased. He complained of associated fatigue. The patient noted that he had been out of Lasix for approximately 1 week so he had not been taking his Lasix. He had also been out of his Synthroid and cinacalet because he ran out. He was admitted to the telemetry floor where he was placed on IV Lasix and he had diuresed well. For his hospitalization he diuresed a cumulative of about 6.162 L. On 02/27 he developed nausea and vomiting with hematemesis and his hemoglobin dropped from 10.7-8.8. The patientwas placed on IV Protonix and a repeat hemoglobin at noon over the same day was 7.4 . 2 units of packed red blood cells were ordered and transfused and GI consult was placed. He was taken for an EGD on 02/28/2023 where he was found tohave mucosal changes consistent with Tuttle's esophagus, small hiatal hernia, alarge amount of residual food in the stomach, hematin in the gastric body as well as an oozing gastric ulcer with a visible vessel that was injected and heated with brain picker probe. Azithromycin 1 g for 1 dose was given for some gastroparesis as well as Reglan 10 mg every 6 hours for 24 hours and he was to be maintained on Protonix and Carafate for 8 weeks and then transition Protonix from 40 mg twice daily to 40 mg daily and stop the Carafate.. Clinically overall he was doing much better by 03/01/2023 however he was having some lightheadedness with standing and orthostatic vitals were obtained. He was found to be orthostatic positive and his Lasix was transitioned from IV to p.o. he remained orthostatic positive and I gave him 1 L of IV fluids which made no overt change in his orthostasis. We did note that his hemoglobin had stabilizedhowever was down considerably from his baseline between 7 and 8 therefore we gave him 1 unit of packed red blood cells on 03/02/2023. His repeat orthostaticvitals were normal on the a.m. of 03/03/2023. We checked an ambulatory pulse oxprior to discharge and he required no supplemental oxygen at rest or with exertion. We discussed the possibility of home health care and therapy serviceswith him at discharge and he declined but was interested in palliative care services and a referral was made prior to his discharge. His renal function is not normal at baseline and has been higher than it was typically all over trending down when compared to previous laboratory data in October. I discussed with him following up with nephrology which is something he had not done before. I gave him a referral to Dr. Zaragoza and instructed him to call on Monday to make an appointment. I have held his losartan in the meantime and told him to hold this until he follows up with nephrology and can be further evaluated. He is also to call on Monday to set up a follow-up appointment with Dr. Gonzales as he will need a repeat EGD in about 2 to 3 months for reevaluation of the areas that were cauterized and his Tuttle's esophagus after treatment. I have also asked him to follow-up with cardiology as soon as appointment can be obtained and his primary care physician within the next 2 weeks. He was discharged home in stable condition with prescriptions for Lasix, Cinacalcet (he had run out), Protonix, and Carafate as noted above. Discharge diagnoses: Shortness of breath-resolved Decompensated heart failure with preserved ejection fraction--> acute on chronic-resolved Hypoxia-resolved Lightheadedness with positive orthostatic vital signs-resolved Acute on chronic anemia-stable Upper GI bleed Gastric ulcer CKD FAVIAN CAD Hypertension Hyperlipidemia DM-2 History of hypercalcemia secondary to hyperparathyroidism Chronic pain Depression Anxiety Obesity FAVIAN Physical Exam Narrative Patient states his lightheadedness is resolved. Orthostatic vitals were now negative after blood transfusion. Is stable on room air requiring no supplemental oxygen. Plan for discharge home later today. Patient defers any home health care or outpatient physical therapy but was amenable to palliative care referral which was made prior to discharge. Const alert, oriented x3, no apparent distress and well nourished Constitutional Narrative: Obese, upper middle-aged white male, sitting in a chair at the bedside, nursing at bedside, appears much older than stated age, appears comfortable and nontoxic General Appearance: cooperative, comfortable, well kempt and well developed Orientation / Consciousness: awake, oriented to person, oriented to place and oriented to time HEENT normocephalic, head/scalp atraumatic and moist oral mucous membranes HEENT Narrative: Mild hearing loss, Mallampati 3, no thrush Eyes PERRL, EOMs intact bilaterally and conjunctivae normal Neck no lymphadenopathy, supple and no JVD Neck Narrative: Trachea midline, thyroid not enlarged Resp normal respiratory effort, no retractions, no use of accessory muscles and clearto auscultation bilaterally Auscultation: Negative for crackles, rhonchi or wheezes Cardio S1 normal heart sound, S2 normal heart sound, no murmurs, no rub, no gallops andno clicks Cardio Narrative: Heart rate and rhythm is irregular GI normal to inspection, nondistended, normoactive bowel sounds, soft to palpation and non-tender Extremity no clubbing, cyanosis or edema Skin no rashes or lesions noted, no wounds, skin turgor normal and no jaundice Neuro oriented x3, moves all extremities, no focal motor deficits and no sensory deficits noted Sensorium / Orientation: awake, alert, oriented to person, oriented to place andoriented to time Speech: speech normal Psych Psych Narrative: Affect is mildly flat however eye contact is good and patient interacts appropriately Weight / BMI Weight Weight: 110 kg Body Mass Index (BMI) 34.7 ABG / Lab / Microbiology Data 03/03/23 05:15 03/03/23 05:15 Laboratory: Laboratory Results - last 24 hr 03/02/23 15:40: Blood Type A POSITIVE, Antibody Screen NEGATIVE, Crossmatch See Detail 03/02/23 16:10: POC Glucose 188 H 03/02/23 21:06: POC Glucose 210 H 03/03/23 05:15: WBC 10.6, RBC 3.12 L, Hgb 9.1 L, Hct 29.8 L, MCV 95.5 H, MCH 29.2, MCHC 30.5 L, RDW Std Deviation 58.5 H, RDW Coeff of Thao 18.5 H, Plt Count 311, MPV 9.4, Immature Gran % (Auto) 1.900 H, Neut % (Auto) 76.7 H, Lymph % (Auto) 7.0 L, Alpine % (Auto) 12.5 H, Eos % (Auto) 1.5, Baso % (Auto) 0.4, Absolute Neuts (auto) 8.1 H, Absolute Lymphs (auto) 0.74 L, Nucleated RBC % 0.8,Sodium 142, Potassium 3.7, Chloride 110 H, Carbon Dioxide 24.0, Anion Gap 8, BUN59 H, Creatinine 2.47 H, Estim Creat Clear Calc 30.38, Est GFR (MDRD) Af Amer 34L, Est GFR (MDRD) Non-Af 28 L, BUN/Creatinine Ratio 23.9 H, Glucose 151 H, Calcium 9.5, Phosphorus 2.9, Magnesium 2.0 03/03/23 06:06: POC Glucose 160 H 03/03/23 11:10: POC Glucose 250 H D/C Instructions Discharge Diet: Low fat / Low cholesterol (Try to limit fluid intake to 2 L or less daily), 1800 Calorie Control Diet and 2000 mg Sodium Diet Meaningful Use Info Meaningful Use Diagnoses (Choose all that apply): None applicable and CHF CHF LUCIAN/ARB ordered at discharge?: No Reason LUCIAN/ARB not ordered?: Worsening renal disease Documented LVEF (%): 55 Discharge Plan Admission Admit Date/Time: 02/26/23 03:00 Primary Reason for Your Visit: Shortness of breath Attending Provider: Cornelia Burns Primary Care Provider: Mery Raymond Consulting Providers: Lyle Coleman; Cody Sears; Tunde Miller Instructions Additional Instructions / Restrictions: 1. Please call on Monday to make appointment for specialists to be seen as soonas you can get into see them Discharge Orders/Prescriptions Prescriptions: New sucralfate 1 gram Tablet 1 g PO 0700,1100,1600 Qty: 90 1RF pantoprazole 40 mg Tablet,Delayed Release (Dr/Ec) 40 mg PO BID Qty: 60 2RF Rx Instructions: Take 40 mg twice daily for 8 weeks then decrease dose to 40 mg daily Continued (DME) Handicap Placard See Rx Instructions .ROUTE .MEDSUPPLY Qty: 1 0RF Rx Instructions: As directed, length of time 3 years (DME) FreeStyle Tiffanie 2 Riparius Misc See Rx Instructions .ROUTE .MEDSUPPLY Qty: 1 0RF Rx Instructions: As directed (DME) FreeStyle Tiffanie 2 Sensor Kit See Rx Instructions .ROUTE .MEDSUPPLY Qty: 2 6RF Rx Instructions: As directed ferrous sulfate 325 mg (65 mg iron) tablet 325 mg PO DAILY Qty: 90 1RF (DME) OneTouch Verio test strips Strip See Rx Instructions .ROUTE .MEDSUPPLY Qty: 100 12RF Rx Instructions: test 3 times daily acetaminophen 650 mg suppository 650 mg MA Q4H PRN (Reason: fever or pain) aluminum-magnesium hydroxide 225-200 mg/5 mL suspension 30 ml PO DAILY PRN (Reason: GI DISTRESS) bisacodyl 10 mg suppository 10 mg MA DAILY PRN (Reason: constipation) Enema 19-7 gram/118 mL enema 118 ml MA DAILY PRN (Reason: constipation) glucagon HCl [Glucagon (HCl) Emergency Kit] 1 mg recon soln 1 mg IM Q20M PRN (Reason: hypoglycemia) Rx Instructions: until target blood sugar attained dextrose [Glucose Gel] 40 % gel 15 g PO Q15M PRN (Reason: hypoglycemia) Rx Instructions: until symptoms of low blood sugar are controlled guaifenesin 200 mg/5 mL liquid 200 mg PO Q4H PRN (Reason: congestion) magnesium hydroxide [Milk of Magnesia] 400 mg/5 mL suspension 30 ml PO DAILY PRN (Reason: constipation) insulin glargine [Lantus Solostar U-100 Insulin] 100 unit/mL (3 mL) insulin pen 7 unit subcut DAILY Qty: 15 3RF Rx Instructions: Hold if glucose less than 130 mg/dl tramadol 50 mg Tablet 50 mg PO Q6H PRN PRN (Reason: Pain Score 6-10) 3 Days Qty: 10 0RF Humulin R U-500 (Conc) Kwikpen 500 unit/mL (3 mL) insulin pen 30 unit SUBCUT .TIDCM furosemide 20 mg tablet 40 mg PO BID 90 Days Qty: 60 0RF cinacalcet 30 mg tablet 30 mg PO BID Qty: 60 0RF (DME) pen needle, diabetic [BD Ultra-Fine Lorie Pen Needle] 32 gauge x 5/32 needle See Rx Instructions .ROUTE .MEDSUPPLY Qty: 360 5RF Rx Instructions: 4x/day cholecalciferol (vitamin D3) 1,250 mcg (50,000 unit) capsule 1,250 mcg PO QWEEK Qty: 8 6RF metoprolol succinate 50 mg tablet extended release 24 hr 50 mg PO BID Qty: 180 3RF clopidogrel 75 mg tablet 75 mg PO DAILY Qty: 90 3RF fenofibrate micronized 200 mg capsule 200 mg PO DAILY Qty: 30 12RF potassium chloride 20 mEq tablet,ER particles/crystals 20 meq PO BID 90 Days Qty: 540 1RF amlodipine 10 mg tablet 10 mg PO DAILY Qty: 90 3RF ranolazine 500 mg tablet extended release 12 hr 500 mg PO BID Qty: 180 3RF Ozempic 1 mg/dose (4 mg/3 mL) pen injector 1 mg subcut QWEEK Qty: 3 4RF Patient Comments: Last shot was on MondayFebruary 24. nitroglycerin 0.4 mg tablet, sublingual See Rx Instructions .ROUTE .COMPLEX Qty: 25 10RF Dose Instruction: DISSOLVE 1 TABLET UNDER THE TONGUE NEEDED FOR CHEST PAIN EVERY 5 MINUTES UP TO 3 TIMES. IF NO RELIEF CALL 911. Rx Instructions: DISSOLVE 1 TABLET UNDER THE TONGUE NEEDED FOR CHEST PAIN EVERY 5 MINUTES UP TO 3 TIMES. IF NO RELIEF CALL 911. paroxetine HCl 40 mg tablet 40 mg PO DAILY Qty: 90 3RF Rx Instructions: TAKE 1 TABLET BY MOUTH ONCE DAILY Held losartan 25 mg tablet 25 mg PO DAILY Qty: 90 3RF Hold Instructions: until you see nephrology Discontinued Eliquis 5 mg Tablet 5 mg PO BID Qty: 30 0RF Referrals / Follow Up: Mery Raymond MD [Primary Care Provider] - Within 2 Weeks Disposition Disposition (needs filled in before D/C Order can be placed): Home, Self Care Charges/Coding Visit Charges Inpatient E&M: 64121 Disch Hosp >30min 03/03/23 1301 <Electronically signed by Cornelia Burns DO> Cosigner Signature (if applicable): CC: Dr. Mery Raymond MD; Dr. Yaima Zaragoza MD; Dr. Cornelia Burns DO; ANJEL Bearden; Louie Gonzales DO~ Signed [facility] Work Phone: [phone]) 808-200511-24-2023 Progress note Author Louie Gonzales [facility] March 03, 2023 1:55pm Note Date/Time March 03, 2023 1:55pm [facility] Medical Records Department [address] [place] [id number] Progress Note - GI 03/03/23 1000 MR#: [id number] Acct: [id number] Name: SHADE TEIXEIRA Praveen Rep #:[id number] : 1955 67 From: Louie Gonzales DO PCP: Dr. Mery Raymond MD Status:A DM IN Location: [place] [address] Subjective Subjective Patient is doing well. He is tolerating a diet without any abdominal pain and he has not seen any signs of GI bleeding. Objective Data Objective Data Vital Signs: Vital Signs Temp Pulse Resp BP Pulse Ox O2 Del Method O2 Flow Rate 97.4 F L 75 18 135/71 H 95 Room Air 0 03/03/23 12:50 03/03/23 12:50 03/03/23 12:50 03/03/23 12:50 03/03/23 12:50 03/03/23 12:50 03/03/23 10:07 Oxygen Flow Rate (L/min) [ 0 AMBULATING on Room Air] Oxygen Flow Rate (L/min) [At 0 REST on Room Air] Oxygen Flow Rate (L/min) 2 Oxygen Delivery Method Room Air Weight: 242 lb 8.136 oz Body Mass Index (BMI) 34.7 Intake & Output: Intake and Output for Last 24 Hours 03/01/23 03/02/23 03/03/23 23:59 23:59 23:59 Intake Total 1224.21 / 1584.21 2920 / 2920 180 / 180 Output Total 2400 / 3100 2650 / 2650 Balance -1175.79 / -1515.79 270 / 270 180 / 180 Lab / Micro Data 03/03/23 05:15 03/03/23 05:15 Labs: Laboratory Results - last 24 hr 03/02/23 15:40: Blood Type A POSITIVE, Antibody Screen NEGATIVE, Crossmatch See Detail 03/02/23 16:10: POC Glucose 188 H 03/02/23 21:06: POC Glucose 210 H 03/03/23 05:15: WBC 10.6, RBC 3.12 L, Hgb 9.1 L, Hct 29.8 L, MCV 95.5 H, MCH 29.2, MCHC 30.5 L, RDW Std Deviation 58.5 H, RDW Coeff of Thao 18.5 H, Plt Count 311, MPV 9.4, Immature Gran % (Auto) 1.900 H, Neut % (Auto) 76.7 H, Lymph % (Auto) 7.0 L, Alpine % (Auto) 12.5 H, Eos % (Auto) 1.5, Baso % (Auto) 0.4, Absolute Neuts (auto) 8.1 H, Absolute Lymphs (auto) 0.74 L, Nucleated RBC % 0.8,Sodium 142, Potassium 3.7, Chloride 110 H, Carbon Dioxide 24.0, Anion Gap 8, BUN59 H, Creatinine 2.47 H, Estim Creat Clear Calc 30.38, Est GFR (MDRD) Af Amer 34L, Est GFR (MDRD) Non-Af 28 L, BUN/Creatinine Ratio 23.9 H, Glucose 151 H, Calcium 9.5, Phosphorus 2.9, Magnesium 2.0 03/03/23 06:06: POC Glucose 160 H 03/03/23 11:10: POC Glucose 250 H Physical Exam Narrative Patient states his lightheadedness is resolved. Const alert, oriented x3, no apparent distress and well nourished General Appearance: cooperative, comfortable, well kempt and well developed Orientation / Consciousness: awake, oriented to person, oriented to place and oriented to time HEENT normocephalic, head/scalp atraumatic and moist oral mucous membranes HEENT Narrative: Mild hearing loss, Mallampati 3, no thrush Eyes PERRL, EOMs intact bilaterally and conjunctivae normal Neck no lymphadenopathy, supple and no JVD Neck Narrative: Trachea midline, thyroid not enlarged Resp normal respiratory effort, no retractions, no use of accessory muscles and clearto auscultation bilaterally Auscultation: Negative for crackles, rhonchi or wheezes Cardio S1 normal heart sound, S2 normal heart sound, no murmurs, no rub, no gallops andno clicks Cardio Narrative: Heart rate and rhythm is irregular GI normal to inspection, nondistended, normoactive bowel sounds, soft to palpation and non-tender Extremity no clubbing, cyanosis or edema Skin no rashes or lesions noted, no wounds, skin turgor normal and no jaundice Neuro oriented x3, moves all extremities, no focal motor deficits and no sensory deficits noted Sensorium / Orientation: awake, alert, oriented to person, oriented to place andoriented to time Speech: speech normal Psych Psych Narrative: Affect is mildly flat however eye contact is good and patient interacts appropriately Assessment & Plan Assessment/Plan (1) GI bleed: QUALIFIERS: GI bleed type/associated pathology: unspecified gastrointestinal hemorrhage type Qualified Code(s): K92.2 - Gastrointestinal hemorrhage, unspecified (2) Heart failure with preserved ejection fraction: QUALIFIERS: Heart failure chronicity: acute on chronic Qualified Code(s): I50.33 - Acute on chronic diastolic (congestive) heart failure PLAN: Plan 1. Acute on chronic congestive heart failure with preserved ejection fraction- due to relative hypotension today, I have decided to place patient on oral Lasixand stop his IV Lasix, the Lasix will be restarted tomorrow, patient may be evaluated for possible discharge in the morning #2 acute upper GI bleed requiring blood transfusion-from gastric ulcer-again I #3 chronic atrial fibrillation-patient is currently not on any anticoagulation, due to his GI bleed, I will refrain from placing the patient on any anticoagulation at this time #4 hypoxia-probably secondary to congestive heart failure-pulse ox will be monitored, again the patient has an oxygen concentrator at home, he will need ambulatory pulse ox before he is discharged home #5 essential hypertension-patient's blood pressure will be monitored, it may be necessary to hold some of his blood pressure medications due to his hypotension earlier today #6 type 2 diabetes-patient's blood sugars will be monitored, sliding scale insulin will be administered as needed #7 noncompliance with medical regimen-patient states that he did not receive hisfurosemide by mail and he did not contact any of his physicians about obtaining any furosemide #8 coronary artery disease-this appears stable at this time, again patient is noncompliant with his home medications, patient is supposed to be taking Plavix and Eliquis, he was not on Eliquis. Total clinical time spent by myself addressing the patient's medical issues, reviewing all of his data, and collaborating with patient's care team: 35 minutes Charges/Coding Visit Charges Inpatient E&M: 39287 Subs Hosp L3 03/03/23 1355 <Electronically signed by Louie Gonzales DO> Cosigner Signature (if applicable): CC: ~ Signed [facility] Work Phone: 1(998) 464-573011-23-2023 Progress note Author Louie Gonzales [facility] March 02, 2023 6:32pm Note Date/Time March 02, 2023 6:32pm [facility] Medical Records Department [address] [place] [id number] Progress Note - GI 03/02/23 1830 MR#: [id number] Acct: [id number] Name: TEIXEIRASHADE A Rep #:[id number] : 1955 67 From: Louie Gonzales DO PCP: Dr. Mery Raymond MD Status:A DM IN Location: [place] [address] Subjective Subjective Patient underwent repeat upper endoscopy yesterday for treatment of upper GI bleeding secondary to gastric ulcers likely secondary to NSAIDs. Biopsies were taken and pending for H. pylori and other acute pathology. Objective Data Objective Data Vital Signs: Vital Signs Temp Pulse Resp BP Pulse Ox O2 Del Method O2 Flow Rate 98.1 F 77 16 117/77 93 Room Air 0 03/02/23 16:06 03/02/23 16:06 03/02/23 16:06 03/02/23 16:06 03/02/23 16:06 03/02/23 16:06 03/02/23 14:52 Oxygen Flow Rate (L/min) [ 0 AMBULATING on Room Air] Oxygen Flow Rate (L/min) [At 0 REST on Room Air] Oxygen Flow Rate (L/min) 2 Oxygen Delivery Method Room Air Weight: 241 lb 10.026 oz Body Mass Index (BMI) 34.7 Intake & Output: Intake and Output for Last 24 Hours 02/28/23 03/01/23 03/02/23 23:59 23:59 23:59 Intake Total 2092.55 / 2092.55 1224.21 / 1584.21 1960 / 1960 Output Total 4800 / 4800 2400 / 3100 1700 / 1700 Balance -2707.45 / -2707.45 -1175.79 / -1515.79 260 / 260 Lab / Micro Data 03/02/23 09:36 03/02/23 05:35 Labs: Laboratory Results - last 24 hr 03/01/23 21:31: POC Glucose 191 H 03/02/23 05:35: Hgb 7.3 L, Hct 23.7 L, Sodium 143, Potassium 3.3 L, Chloride 110H, Carbon Dioxide 29.0, Anion Gap 4 L, BUN 82 H, Creatinine 2.75 H, Estim Creat Clear Calc 27.28, Est GFR (MDRD) Af Amer 30 L, Est GFR (MDRD) Non-Af 25 L, BUN/Creatinine Ratio 29.8 H, Glucose 115 H, Calcium 9.3 03/02/23 06:16: POC Glucose 115 H 03/02/23 09:36: Hgb 7.7 L 03/02/23 11:12: POC Glucose 112 H 03/02/23 15:40: Blood Type A POSITIVE, Antibody Screen NEGATIVE, Crossmatch See Detail 03/02/23 16:10: POC Glucose 188 H Physical Exam Const alert, oriented x3, no apparent distress and well nourished HEENT head/scalp atraumatic and moist oral mucous membranes HEENT Narrative: Mallampati is 3, no thrush Head and Scalp: normocephalic Resp normal respiratory effort, no retractions, no use of accessory muscles and clearto auscultation bilaterally Resp Narrative: Few bibasilar crackles Auscultation: crackles; Negative for rhonchi or wheezes Cardio regular rate, regular rhythm, S1 normal heart sound, S2 normal heart sound, no murmurs, no rub, no gallops and no clicks GI normal to inspection, nondistended, normoactive bowel sounds, soft to palpation and non-tender Extremity Extremity Narrative: Trace to 1+ bilateral lower extremity pitting edema around the ankles and feet with no sign of clubbing Neuro oriented x3, moves all extremities and no focal motor deficits Speech: speech normal Psych Psych Narrative: Affect is mildly flat however eye contact is good and patient interacts appropriately Assessment & Plan Assessment/Plan (1) GI bleed: QUALIFIERS: GI bleed type/associated pathology: unspecified gastrointestinal hemorrhage type Qualified Code(s): K92.2 - Gastrointestinal hemorrhage, unspecified (2) Heart failure with preserved ejection fraction: QUALIFIERS: Heart failure chronicity: acute on chronic Qualified Code(s): I50.33 - Acute on chronic diastolic (congestive) heart failure PLAN: Plan Acute upper GI bleed requiring blood transfusion-from gastric ulcer. Continue medical therapy with Protonix and sulcal fate. He will need repeat upper endoscopy in approximately 2 months to ensure full healing of gastric ulcers pending pathology for intestinal metaplasia, dysplasia or cancer and H. pylori. Charges/Coding Visit Charges Inpatient E&M: 36054 Subs Hosp L3 03/02/23 1832 <Electronically signed by Louie Gonzales DO> Cosigner Signature (if applicable): CC: ~ Signed [facility] Work Phone: 1(990) 309-739011-23-2023 Progress note Author Cornelia Burns [facility] March 02, 2023 3:10pm Note Date/Time March 02, 2023 3:10pm [facility] Medical Records Department [address] [place] [address] Progress Note - Hospitalist 03/02/23 1452 MR#: [id number] Acct: [id number] Name: SHADE TEIXEIRA Praveen Rep #:[id number] : 1955 67 From: Cornelia Burns DO PCP: Dr. Mery Raymond MD Status:A DM IN Location: [place] [address] Reason for Visit Reason for Visit: Shortness of breath Subjective Subjective Mr. Teixeira is a 67-year-old male who presents emergency department at [facility] on 02/26/2023 complaining of 1 week history of shortness of breath. Approximately 30 minutes prior to presentation his shortness of breath acutely increased. He had associated fatigue. The patient noted that he had been out of Lasix for approximately 1 week so he had not been taking his Lasix. He had also been out of his Synthroid because he ran out. He was admitted to the telemetry floor where he was placed on IV Lasix and he had diuresed well. For his hospitalization he has diuresed a cumulative of about 6.162 L. On 1120 he developed nausea and vomiting with hematemesis and his hemoglobin dropped from 10.7-8.8. The patient was placed on IV Protonix and a repeat hemoglobin atnoon was 7.4. 2 units of packed red blood cells were ordered and transfused andGI consult was placed. He was taken for an EGD on 02/28/2023 where he was foundto have mucosal changes consistent with Tuttle's esophagus, small hiatal hernia, a large amount of residual food in the stomach, hematin in the gastric body as well as an oozing gastric ulcer with a visible vessel that was injected and heated with brain picker probe. Azithromycin 1 g for 1 dose was given for some gastroparesis as well as Reglan 10 mg every 6 hours for 24 hours and he was to be maintained on Protonix and Carafate to be started. Clinically overall he wasdoing much better by 03/01/2023 however he was having some lightheadedness with standing and orthostatic vitals were obtained. He was found to be orthostatic positive and his Lasix was transitioned from IV to p.o. Upon reevaluation today the patient remains orthostatic positive. I did give him 1 L of IV fluids and he unfortunately remains orthostatic positive. His hemoglobin is significantly lower than previous so I will give him 1 unit of packed red blood cells and rias check orthostatic vitals tomorrow morning. We will also hold his Lasix today and restart tomorrow. Objective Data Objective Data Vital Signs: Vital Signs Temp Pulse Resp BP Pulse Ox O2 Del Method O2 Flow Rate 97.7 F L 82 16 94/65 93 Room Air 0 03/02/23 14:36 03/02/23 14:38 03/02/23 14:36 03/02/23 14:38 03/02/23 14:52 03/02/23 14:36 03/02/23 14:52 Oxygen Flow Rate (L/min) [ 0 AMBULATING on Room Air] Oxygen Flow Rate (L/min) [At 0 REST on Room Air] Oxygen Flow Rate (L/min) 2 Oxygen Delivery Method Room Air Weight: 109.6 kg Body Mass Index (BMI) 34.7 Intake & Output: Intake and Output for Last 24 Hours 02/28/23 03/01/23 03/02/23 23:59 23:59 23:59 Intake Total 2092.55 / 2092.55 1224.21 / 1584.21 480 / 480 Output Total 4800 / 4800 2400 / 3100 1200 / 1200 Balance -2707.45 / -2707.45 -1175.79 / -1515.79 -720 / -720 Lab / Micro Data 03/02/23 09:36 03/02/23 05:35 Labs: Laboratory Results - last 24 hr 03/01/23 16:33: POC Glucose 166 H 03/01/23 21:31: POC Glucose 191 H 03/02/23 05:35: Hgb 7.3 L, Hct 23.7 L, Sodium 143, Potassium 3.3 L, Chloride 110H, Carbon Dioxide 29.0, Anion Gap 4 L, BUN 82 H, Creatinine 2.75 H, Estim Creat Clear Calc 27.28, Est GFR (MDRD) Af Amer 30 L, Est GFR (MDRD) Non-Af 25 L, BUN/Creatinine Ratio 29.8 H, Glucose 115 H, Calcium 9.3 03/02/23 06:16: POC Glucose 115 H 03/02/23 09:36: Hgb 7.7 L 03/02/23 11:12: POC Glucose 112 H Physical Exam Const alert, oriented x3, no apparent distress and well nourished Constitutional Narrative: Obese, upper middle-aged white male, sitting in a chair at the bedside, nursing at bedside,, appears much older than stated age, appears comfortable and nontoxic HEENT head/scalp atraumatic and moist oral mucous membranes HEENT Narrative: Mallampati is 3, no thrush Head and Scalp: normocephalic Resp normal respiratory effort, no retractions, no use of accessory muscles and clearto auscultation bilaterally Resp Narrative: Few bibasilar crackles Auscultation: crackles; Negative for rhonchi or wheezes Cardio regular rate, regular rhythm, S1 normal heart sound, S2 normal heart sound, no murmurs, no rub, no gallops and no clicks GI normal to inspection, nondistended, normoactive bowel sounds, soft to palpation and non-tender Extremity Extremity Narrative: Trace to 1+ bilateral lower extremity pitting edema around the ankles and feet with no sign of clubbing Neuro oriented x3, moves all extremities and no focal motor deficits Speech: speech normal Psych Psych Narrative: Affect is mildly flat however eye contact is good and patient interacts appropriately Assessment & Plan Assessment/Plan (1) GI bleed: QUALIFIERS: GI bleed type/associated pathology: unspecified gastrointestinal hemorrhage type Qualified Code(s): K92.2 - Gastrointestinal hemorrhage, unspecified (2) Gastric ulcer: (3) Acute on chronic anemia: (4) Heart failure with preserved ejection fraction: QUALIFIERS: Heart failure chronicity: acute on chronic Qualified Code(s): I50.33 - Acute on chronic diastolic (congestive) heart failure (5) Hypoxia: (6) Shortness of breath: (7) Lightheadedness: PLAN: Plan Shortness of breath secondary to decompensated heart failure with preserved ejection fraction -Patient was found to be noncompliant on presentation and had been out of Lasix for several days -Has diuresed well with over 6 L of diuresis during his hospital course -Echocardiogram from 10/21/2022 showed an EF of 55 to 60% with mild MR -Lasix on hold today due to orthostatic positive vital signs -Will plan to restart Lasix with prescription to be reinitiated at discharge -Continue fluid restriction but changed to 1750 cc -Continue daily weights -Continue sodium restriction Hypoxia -Resolved -Patient is currently weaned to room air -Will check ambulatory pulse ox prior to discharge Lightheadedness with orthostatic positive vital signs -Patient was gently rehydrated with 1 L of IV fluids as I suspect he may have had a bit of overdiuresis but remains orthostatic positive and symptomatic -We will give 1 more unit of packed red blood cells as this may be contributing -Recheck orthostatic vital signs in a.m. -Hold Lasix today and plan to restart tomorrow Acute on chronic anemia -Baseline hemoglobin appears to run between 12.5 and 14 -Most recent hemoglobin was 7.7 -Status post 2 units packed red blood cells -Since patient is orthostatic positive with symptoms we will give 1 more unit ofpacked red blood cells to see if this does not help with his orthostasis -Repeat CBC in a.m. GI bleed secondary to gastric ulcer -Status post EGD on 02/28/2023 with heater probe treatment and injection -Continue Protonix 40 mg p.o. twice daily for 8 weeks then transition to 1 time daily -Continue Carafate as ordered for 6 weeks -GI follow-up after discharge CKD--> baseline unclear -Serum creatinine in October of this year was between 1.4 and 1.7 -Serum creatinine on admission was 2.74 and has been fairly stable throughout his hospital course at this level -Will need nephrology referral at discharge -Urine output has been good -If creatinine stays stable where it is we will recommend outpatient follow-up if worsens will proceed with further evaluation while hospitalized FAVIAN -Encourage CPAP use CAD/HTN/HPL -Continue home medication -Patient with previous coronary artery stenting -Continue aspirin and Plavix as patient had his most recent cardiac stent in 10/2022--> this was a drug-eluting stent and require 1 year of dual antiplatelet therapy at which time he should be reevaluated for discontinuation of either hisaspirin and Plavix DM-2 -Oral home agents on hold -Continue subcu insulins -Accu-Cheks as ordered -SSI -AM fasting blood sugar was 115 today History of hyperglycemia secondary to hyperparathyroidism -Continue home medication -Current calcium is within normal limits Chronic pain -Avoid NSAIDs -As needed Tylenol available Depression/anxiety -Continue home paroxetine Obesity -Weight is 34.7 kg -Recommend weight loss -Complicates treatment, prognosis, outcomes DVT prophylaxis -Will start heparin 3 times daily CODE STATUS Full Code Charges/Coding Visit Charges Inpatient E&M: 28020 Subs Hosp L3 03/02/23 1510 <Electronically signed by Cornelia Burns DO> Cosigner Signature (if applicable): CC: ~ Signed [facility] Work Phone: 1(461) 676-961911-22-2023 Progress note Author Tunde Miller [facility] March 01, 2023 7:59pm Note Date/Time March 01, 2023 7:59pm [facility] Medical Records Department [address] [place] [address] Progress Note - Hospitalist 03/01/231955 MR#: [id number] Acct: [id number] Name: SHADE TEIXEIRA Rep #:[id number] : 1955 67 From: Tunde Miller DO PCP: Dr. Mery Raymond MD Status:A DM IN Location: [place] [address] Reason for Visit Reason for Visit: Diagnoses Anemia, unspecified (02/26/23) Other specified diabetes mellitus with diabetic chronic kidney disease (02/26/23) Acute on chronic diastolic (congestive) heart failure (02/26/23) Gastrointestinal hemorrhage, unspecified (02/26/23) Acute kidney failure, unspecified (02/26/23) Chronic kidney disease, stage 3a (02/26/23) Hypoxemia (02/26/23) longterm (current) use of insulin (02/26/23) Subjective Subjective Patient was seen and examined today, he underwent a repeat EGD which showed evidence of Tuttle's esophagus, oozing gastric ulcers which were treated with aheater probe, gastritis, and a oozing gastric ulcer with a visible vessel that was injected and treated with a heater probe. Patient attempted to ambulate this afternoon before his EGD and his pressure went down into the 70s systolic and he was lightheaded, I have elected at this time to take him off IV Lasix, I have placed him on oral Lasix starting tomorrow morning and he will be reevaluated tomorrow for possible discharge home. Objective Data Objective Data Vital Signs: Vital Signs Temp Pulse Resp BP Pulse Ox O2 Del Method O2 Flow Rate 97.6 F L 74 16 129/79 H 99 Nasal Cannula 2 03/01/23 16:30 03/01/23 16:30 03/01/23 16:30 03/01/23 16:30 03/01/23 16:30 03/01/23 16:30 03/01/23 16:30 Oxygen Flow Rate (L/min) 2 Oxygen Delivery Method Nasal Cannula Weight: 116 kg Body Mass Index (BMI) 36.6 Intake & Output: Intake and Output for Last 24 Hours 02/27/23 02/28/23 03/01/23 23:59 23:59 23:59 Intake Total 1451 / 1452 2092.55 / 2092.55 1224.21 / 1224.21 Output Total 1999 4800 / 4800 2400 / 2400 Balance -549 / -548 -2707.45 / -2707.45 -1175.79 / -1175.79 Lab / Micro Data 03/01/23 08:12 03/01/23 05:55 Labs: Laboratory Results - last 24 hr 02/28/23 22:02: POC Glucose 202 H 03/01/23 05:55: WBC Cancelled, Corrected WBC Cancelled, RBC Cancelled, Hgb Cancelled, Hct Cancelled, MCV Cancelled, MCH Cancelled, MCHC Cancelled, RDW Std Deviation Cancelled, RDW Coeff of Thao Cancelled, Plt Count Cancelled, MPV Cancelled, Immature Gran % (Auto) Cancelled, Neut % (Auto) Cancelled, Lymph % (Auto) Cancelled, Alpine % (Auto) Cancelled, Eos % (Auto) Cancelled, Baso % (Auto)Cancelled, Absolute Neuts (auto) Cancelled, Absolute Lymphs (auto) Cancelled, Total Counted Cancelled, Neutrophils % (Manual) Cancelled, Band Neutrophils % Cancelled, Lymphocytes % (Manual) Cancelled, Monocytes % (Manual) Cancelled, Eosinophils % (Manual) Cancelled, Basophils % (Manual) Cancelled, Metamyelocytes% Cancelled, Myelocytes % Cancelled, Promyelocytes % Cancelled, Blast Cells % Cancelled, Plasma Cell % (Manual) Cancelled, Other Cells % Cancelled, Nucleated RBC % Cancelled, Nucleated RBCs/100 WBC Cancelled, Differential Comment Cancelled, Diff Path Review Cancelled, Hypersegmented Neuts Cancelled, Atypical Lymphocytes Cancelled, Reactive Lymphocytes Cancelled, Smudge Cells Cancelled, Toxic Granulation Cancelled, Toxic Vacuolation Cancelled, Dohle Bodies Cancelled, Paco Rods Cancelled, Platelet Estimate Cancelled, Plt Morphology Comment Cancelled, RBC Morphology Cancelled 03/01/23 05:55: RBC Morphology Cancelled, Polychromasia Cancelled, HypochromasiaCancelled, Poikilocytosis Cancelled, Basophilic Stippling Cancelled, Anisocytosis Cancelled, Microcytosis Cancelled, Macrocytosis Cancelled, Spherocytes Cancelled, Sickle Cells Cancelled, Target Cells Cancelled, Tear DropCells Cancelled, Ovalocytes Cancelled, Stomatocytes Cancelled, [place] Bodies Cancelled, [place] Cells Cancelled, Bite Cells Cancelled, Crenated Cell Cancelled, Acanthocytes (Spur) Cancelled, Rouleaux Cancelled, Schistocytes Cancelled, PT 15.5 H, INR 1.2, APTT 21.1 L, Sodium 144, Potassium 3.3 L, Chloride 112 H, Carbon Dioxide 27.0, Anion Gap 5, BUN 104 H*, Creatinine 2.88 H,Estim Creat Clear Calc 26.05, Est GFR (MDRD) Af Amer 28 L, Est GFR (MDRD) Non-Af23 L, BUN/Creatinine Ratio 36.1 H, Glucose 153 H, Calcium 9.7, AST 111 H, ALT 137 H 03/01/23 06:52: POC Glucose 150 H 03/01/23 08:12: WBC 11.3 H, RBC 2.85 L, Hgb 8.2 L, Hct 26.5 L, MCV 93.0, MCH 28.8, MCHC 30.9 L, RDW Std Deviation 61.5 H, RDW Coeff of Thao 18.5 H, Plt Count 303, MPV 9.6, Immature Gran % (Auto) 1.300 H, Neut % (Auto) 80.4 H, Lymph % (Auto) 5.6 L, Alpine % (Auto) 11.2 H, Eos % (Auto) 1.1, Baso % (Auto) 0.4, Absolute Neuts (auto) 9.1 H, Absolute Lymphs (auto) 0.63 L, Nucleated RBC % 0.4 03/01/23 11:14: POC Glucose 162 H 03/01/23 16:33: POC Glucose 166 H Physical Exam Narrative alert, oriented x3 and no apparent distress General Appearance: cooperative, well kempt and well developed Orientation / Consciousness: awake, oriented to person, oriented to place and oriented to time HEENT normocephalic, head/scalp atraumatic and moist oral mucous membranes Eyes PERRL, EOMs intact bilaterally and conjunctivae normal Neck supple, no JVD, thyroid normal and no carotid bruits General: trachea midline Resp normal respiratory effort, no retractions, no use of accessory muscles and clearto auscultation bilaterally Auscultation: Negative for rales, rhonchi or wheezes Cardio S1 normal heart sound, S2 normal heart sound, no murmurs, no rub and no gallops Cardio Narrative: Heart rate and rhythm is irregular GI normal to inspection, nondistended, normoactive bowel sounds, soft to palpation,non-tender and non-distended Extremity no clubbing, cyanosis or edema Skin no rashes or lesions noted General Skin Exam: no breakdown Neuro oriented x3, CN's II-XII intact bilaterally, moves all extremities, no focal motor deficits and no sensory deficits noted Sensorium / Orientation: awake and alert Speech: speech normal Psych affect normal Assessment & Plan Assessment/Plan (1) GI bleed: QUALIFIERS: GI bleed type/associated pathology: unspecified gastrointestinal hemorrhage type Qualified Code(s): K92.2 - Gastrointestinal hemorrhage, unspecified (2) Heart failure with preserved ejection fraction: QUALIFIERS: Heart failure chronicity: acute on chronic Qualified Code(s): I50.33 - Acute on chronic diastolic (congestive) heart failure PLAN: Plan 1. Acute on chronic congestive heart failure with preserved ejection fraction- due to relative hypotension today, I have decided to place patient on oral Lasixand stop his IV Lasix, the Lasix will be restarted tomorrow, patient may be evaluated for possible discharge in the morning #2 acute upper GI bleed requiring blood transfusion-from gastric ulcer-again this was treated today by GI #3 chronic atrial fibrillation-patient is currently not on any anticoagulation, due to his GI bleed, I will refrain from placing the patient on any anticoagulation at this time #4 hypoxia-probably secondary to congestive heart failure-pulse ox will be monitored, again the patient has an oxygen concentrator at home, he will need ambulatory pulse ox before he is discharged home #5 essential hypertension-patient's blood pressure will be monitored, it may be necessary to hold some of his blood pressure medications due to his hypotension earlier today #6 type 2 diabetes-patient's blood sugars will be monitored, sliding scale insulin will be administered as needed #7 noncompliance with medical regimen-patient states that he did not receive hisfurosemide by mail and he did not contact any of his physicians about obtaining any furosemide #8 coronary artery disease-this appears stable at this time, again patient is noncompliant with his home medications, patient is supposed to be taking Plavix and Eliquis, he was not on Eliquis. Total clinical time spent by myself addressing the patient's medical issues, reviewing all of his data, and collaborating with patient's care team: 35 minutes Charges/Coding Visit Charges Inpatient E&M: 92220 Subs Hosp L2 03/01/231958 <Electronically signed by Tunde Miller DO> Cosigner Signature (if applicable): CC: ~ Signed [facility] Work Phone: 1(704) 684-927311-22-2023 [facility]2023 Progress note Author Tunde [facility] March 01, 2023 7:40am Note Date/Time February 28, 2023 7:45pm [facility] Medical Records Department [address] [place] [id number] Progress Note - Hospitalist 02/28/231942 MR#: [id number] Acct: [id number] Name: SHADE TEIXEIRA Rep #:[id number] : 1955 67 From: Tunde Miller DO PCP: Dr. 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 Objective Data Objective Data Vital Signs: Vital Signs Temp Pulse Resp BP Pulse Ox O2 Del Method O2 Flow Rate 97.8 F 78 16 124/68 H 100 Nasal Cannula 2 02/28/23 17:07 02/28/23 17:07 02/28/23 17:07 02/28/23 17:07 02/28/23 17:07 02/28/23 17:38 02/28/23 17:38 Oxygen Flow Rate (L/min) 2 Oxygen Delivery Method Nasal Cannula Weight: 116.2 kg Body Mass Index (BMI) 36.7 Intake & Output: Intake and Output for Last 24 Hours 02/26/23 02/27/23 02/28/23 23:59 23:59 23:59 Intake Total 790 / 1150 1451 / 1452 1476.47 / 1476.47 Output Total 1800 / 2500 1999 / 1999 1700 / 1700 Balance -1010 / -1350 -549 / -548 -223.53 / -223.53 Lab / Micro Data 02/28/23 04:17 03/01/23 05:55 Labs: Laboratory Results - last 24 hr 02/27/23 13:15: Blood Type A POSITIVE, Antibody Screen NEGATIVE, Crossmatch See Detail 02/27/23 20:51: POC Glucose 243 H 02/28/23 04:17: WBC 12.0 H, RBC 3.01 L, Hgb 8.6 L, Hct 27.7 L, MCV 92.0, MCH 28.6, MCHC 31.0 L, RDW Std Deviation 58.5 H, RDW Coeff of Thao 18.0 H, Plt Count 276, MPV 9.3, Immature Gran % (Auto) 1.100 H, Neut % (Auto) 83.6 H, Lymph % (Auto) 5.2 L, Alpine % (Auto) 9.7, Eos % (Auto) 0.2, Baso % (Auto) 0.2, Absolute Neuts (auto) 10.1 H, Absolute Lymphs (auto) 0.63 L, Nucleated RBC % 0.3, PT 41.4H, INR 4.2 H*, APTT 28.9, Sodium 142, Potassium 4.0, Chloride 110 H, Carbon Dioxide 23.0, Anion Gap 9, BUN 123 H*, Creatinine 2.98 H, Estim Creat Clear Calc25.18, Est GFR (MDRD) Af Amer 27 L, Est GFR (MDRD) Non-Af 23 L, BUN/Creatinine Ratio 41.3 H, Glucose 223 H, Hemoglobin A1c 5.9 H, Calcium 9.6, AST 92 H, ALT 82H 02/28/23 06:14: POC Glucose 193 H 02/28/23 10:33: POC Glucose 207 H 02/28/23 17:08: POC Glucose 196 H Physical Exam Narrative alert, oriented x3 and no apparent distress General Appearance: cooperative, well kempt and well developed Orientation / Consciousness: awake, oriented to person, oriented to place and oriented to time HEENT normocephalic, head/scalp atraumatic and moist oral mucous membranes Eyes PERRL, EOMs intact bilaterally and conjunctivae normal Neck supple, no JVD, thyroid normal and no carotid bruits General: trachea midline Resp normal respiratory effort, no retractions, no use of accessory muscles and clearto auscultation bilaterally Auscultation: Negative for rales, rhonchi or wheezes Cardio S1 normal heart sound, S2 normal heart sound, no murmurs, no rub and no gallops Cardio Narrative: Heart rate and rhythm is irregular GI normal to inspection, nondistended, normoactive bowel sounds, soft to palpation,non-tender and non-distended Extremity no clubbing, cyanosis or edema Skin no rashes or lesions noted General Skin Exam: no breakdown Neuro oriented x3, CN's II-XII intact bilaterally, moves all extremities, no focal motor deficits and no sensory deficits noted Sensorium / Orientation: awake and alert Speech: speech normal Psych affect normal Assessment & Plan Assessment/Plan (1) GI bleed: QUALIFIERS: GI bleed type/associated pathology: unspecified gastrointestinal hemorrhage type Qualified Code(s): K92.2 - Gastrointestinal hemorrhage, unspecified (2) Heart failure with preserved ejection fraction: QUALIFIERS: Heart failure chronicity: acute on chronic Qualified Code(s): I50.33 - Acute on chronic diastolic (congestive) heart failure PLAN: Plan 1. Acute on chronic congestive heart failure with preserved ejection fraction-patient's Lasix will be resumed at this time, patient is currently on nasal cannula oxygen at 2 L, he stated in the past he was on home portable O2 but it was taken out of his home. Patient states however he still has an oxygen concentrator, I checked with case management and they state patient has a prescription for oxygen at bedtime. #2 acute upper GI bleed requiring blood transfusion-from gastric ulcer-again this was treated today by GI #3 chronic atrial fibrillation-patient is currently not on any anticoagulation, due to his GI bleed, I will refrain from placing the patient on any anticoagulation at this time #4 hypoxia-probably secondary to congestive heart failure-pulse ox will be monitored #5 essential hypertension-patient's blood pressure will be monitored, it may be necessary to hold some of his blood pressure medications due to his hypotension earlier today #6 type 2 diabetes-patient's blood sugars will be monitored, sliding scale insulin will be administered as needed #7 noncompliance with medical regimen-patient states that he did not receive hisfurosemide by mail and he did not contact any of his physicians about obtaining any furosemide #8 coronary artery disease-this appears stable at this time, again patient is noncompliant with his home medications, patient is supposed to be taking Plavix and Eliquis, he was not on Eliquis. Total clinical time spent by myself addressing the patient's medical issues, reviewing all of his data, and collaborating with patient's care team: 35 minutes Charges/Coding Visit Charges Inpatient E&M: 20204 Subs Hosp L2 03/01/23 0740 <Electronically signed by Tunde Miller DO> Cosigner Signature (if applicable): CC: ~ Signed [facility] Work Phone: 1(475) 321-172011-21-2023 Consult note Author Louie Gonzales [facility] February 28, 2023 7:10am Note Date/Time February 28, 2023 7:05am [facility] Medical Records Department [address] [place] [address] Consultation - GI 02/27/23 2300 MR#: [id number] Acct: [id number] Name: SHADE TEIXEIRA Rep #:[id number] : 1955 67 From: Louie Gonzales DO PCP: Dr. Mery Raymond MD Status:A DM IN Location: [place] [address] HPI Consult Data Date of Consult: 02/28/23 HPI Narrative Reason for Consultation: GI bleed HPI Narrative: SHADE TEIXEIRA, is a 67 M who presented to the ED with worsening shortness of breath. Patient states that about a week ago he started getting slightly short of breath. But it is gotten slowly worse. He is gotten a cough over the last day or so but no productivity. No fevers chills. He is not having chest pain. After extensive questioning I find out he was on Lasix but ran out about a week ago. He is not sure what his dosage was but its been as high as 40 mg twice a day. He also ran out of Synthroid but that is only been about 3 days. He cannot lay flat. No hemoptysis or sputum production. He has a past medical history of hyperparathyroidism with hypercalcemia, CKD stage III unclear subtype, Chronic normocytic anemia/iron deficiency anemia, Anxiety and Depression, CAD s/p PCI, Asthma, Hx VTE (DVT, PE), HTN, HLD, FAVIAN, Seizure disorder, Diabetes mellitus type II, PAF, recent admission for olecranonbursitis with right upper extremity pain treated with IV steroids, low-dose NSAIDs. He presented to the [facility] ED on 10/21/22 with history of intermittent chest discomfort. He had a stress test that was found to be positive and cardiology consulted. Patient ultimately had heart catheterization and had 3 stents placed. Echo during his admission with EF of 55 to 60% with normal LV systolic function and moderate MR with no comment on diastolic dysfunction. He toleratedcath well and plan was to discharge on Eliquis due to his A-fib and Plavix givenhis coronary artery disease as well as beta-robinson. I was consulted to see him due to his decrease in hemoglobin and possible hematemesis. His hemoglobin was 10.4 and a drop down to 7.4. [facility] Medical History Abnormal chest xray Acquired left ventricular hypertrophy Acute midline thoracic back pain Adult failure to thrive Anemia Anxiety and depression Arthritis Asthma Atherosclerosis of coronary artery of [place] heart without angina pectoris Atrial fibrillation Benign essential HTN Chest pain Chronic hypoxemic respiratory failure Chronic pain of both knees Chronic wound of head Colon cancer screening Congestive heart failure Dark stools Debility Depression Diabetes Dizziness MEANS (dyspnea on exertion) Dyspnea on exertion Essential (primary) hypertension Fatigue Health care maintenance History of DVT (deep vein thrombosis) History of pulmonary embolism Hypercalcemia Hyperlipidemia Hyperparathyroidism Hypertriglyceridemia Hypoxia Insomnia Morbid obesity with BMI of 40.0-44.9, adult Near syncope Obesity Olecranon bursitis FAVIAN (obstructive sleep apnea) Osteoarthritis Osteopenia Primary hyperparathyroidism Pure hypercholesterolemia Renal insufficiency Sciatica Secondary pulmonary hypertension Seizures Shortness of breath Type 2 diabetes mellitus Vertigo Vitamin D deficiency Home Medications Handicap Placard #1 ea 04/08/20 [Rx Last Taken Unknown] flash glucose scanning reader ([employer] Products[employer] Tiffanie 2 Riparius) #1 ea 02/16/21 [Rx Last Taken Unknown] flash glucose sensor (FreeStyle Tiffanie 2 Sensor kit) #2 ea 02/16/21 [Rx Last Taken Unknown] pen needle, diabetic 32 gauge x 5/32 (BD Ultra-Fine Lorie Pen Needle) #360 ea 04/08/22 [Rx Last Taken Unknown] ferrous sulfate 325 mg (65 mg iron) tablet 325 mg PO DAILY #90 tabs 08/18/22 [Rx Last Taken 10/16/22] blood sugar diagnostic (OneTouch Verio test strips) #100 ea 09/06/22 [Rx Last Taken Unknown] cinacalcet 30 mg tablet 30 mg PO BID hypercalcemia #60 tabs 09/06/22 [Rx Last Taken 10/16/22] cholecalciferol (vitamin D3) 1,250 mcg (50,000 unit) capsule 1,250 mcg PO QWEEK #8 caps 09/07/22 [Rx Last Taken 10/10/22] furosemide 20 mg tablet 40 mg (2 x 20 mg) PO BID 90 days #360 tabs 09/09/22 [Rx Last Taken 10/16/22] metoprolol succinate 50 mg tablet,extended release 24 hr 50 mg PO BID BLOOD PRESSURE #180 tabs 09/21/22 [Rx Last Taken 10/16/22] clopidogrel 75 mg tablet 75 mg PO DAILY BLOOD THINNER #90 tabs 10/03/22 [Rx Last Taken 02/25/23] tramadol 50 mg tablet 50 mg PO Q6H PRN PRN Pain Score 6-10 3 days #10 tabs 10/18/22 [Rx Last Taken Unknown] acetaminophen 650 mg rectal suppository 650 mg MA Q4H PRN fever or pain 10/20/22[History Last Taken Unknown] aluminum-magnesium hydroxide 225 mg-200 mg/5 mL oral suspension 30 ml PO DAILY PRN GI DISTRESS 10/20/22 [History Last Taken Unknown] bisacodyl 10 mg rectal suppository 10 mg MA DAILY PRN constipation 10/20/22 [History Last Taken Unknown] dextrose 40 % oral gel (Glucose Gel) 15 g PO Q15M PRN hypoglycemia 10/20/22 [History Last Taken Unknown] fenofibrate micronized 200 mg capsule 200 mg PO DAILY cholesterol #30 caps 10/20/22 [Rx Last Taken Unknown] glucagon HCl 1 mg solution for injection (Glucagon (HCl) Emergency Kit) 1 mg IM Q20M PRN hypoglycemia 10/20/22 [History Last Taken Unknown] guaifenesin 200 mg/5 mL oral liquid 200 mg PO Q4H PRN congestion 10/20/22 [History Last Taken Unknown] magnesium hydroxide 400 mg/5 mL oral suspension (Milk of Magnesia) 30 ml PO DAILY PRN constipation 10/20/22 [History Last Taken Unknown] sodium phosphates 19 gram-7 gram/118 mL enema (Enema) 118 ml MA DAILY PRN constipation 10/20/22 [History Last Taken Unknown] apixaban 5 mg tablet (Eliquis) 5 mg PO BID blood thinne #30 tabs 10/27/22 [Rx Last Taken Unknown] insulin glargine 100 unit/mL (3 mL) subcutaneous pen (Lantus Solostar U-100 Insulin) 7 unit (0.07 mL) subcut DAILY #15 mL 10/27/22 [Rx Last Taken Unknown] potassium chloride 20 mEq tablet,extended release(part/cryst) 20 meq PO BID potassium 90 days #540 tabs 11/09/22 [Rx Last Taken Unknown] amlodipine 10 mg tablet 10 mg PO DAILY BLOOD PRESSURE #90 tabs 11/18/22 [Rx Last Taken 02/25/23] losartan 25 mg tablet 25 mg PO DAILY blood pressure #90 tabs 12/08/22 [Rx Last Taken Unknown] ranolazine 500 mg tablet,extended release,12 hr 500 mg PO BID chest pain #180 tabs 12/20/22 [Rx Last Taken Unknown] Ozempic 1 mg/dose (4 mg/3 mL) subcutaneous pen injector (semaglutide) 1 mg (0.75mL) subcut QWEEK weight loss #3 mL 12/28/22 [Rx Last Taken Unknown] nitroglycerin 0.4 mg sublingual tablet See Rx Instructions .Route .COMPLEX chestpain #25 tabs 01/18/23 [Rx Last Taken Unknown] paroxetine HCl 40 mg tablet 40 mg PO DAILY depression #90 tabs 02/09/23 [Rx Last Taken Unknown] insulin regular hum U-500 conc 500 unit/mL(3 mL) subcut pen (Humulin R U-500 (Conc) Insulin Kwikpen) 30 unit subcut .TIDCM blood sugar 02/26/23 [History Last Taken 02/25/23] Allergy/AdvReac Type Severity Reaction Status Date / Time No Known Allergies Allergy Verified 02/26/23 01:14 Family History Mother Colon cancer Sister CAD (coronary artery disease) CABG x 5 Diabetes Myocardial infarction, Onset Age: 67 Father Crohns disease Surgical History History of appendectomy 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) History of coronary artery stent placement (10/21/22) History of eye surgery History of hip replacement History of intestinal surgery History of knee surgery History of tonsillectomy and adenoidectomy Social History household members: none housing: apartment other: Hx working in [employer] and [employer]. Smoking Status: Never smoker second hand exposure: Yes alcohol intake: former year quit: 2003 details: Sober since 2003. substance use type: former substance user Date of last use: 04/10/2004 and marijuana caffeine: Yes Type: carbonated beverages Number of servings: 2 and coffee Number of servings: 2 what type of physical activity do you participate in: none ROS ROS Narrative Admission Review of Systems: CONSTITUTIONAL: No weight loss, fever, chills, + weakness or fatigue. HEENT: Eyes: No visual loss, blurred vision, double vision or yellow sclerae. Ears, Nose, Throat: No hearing loss, sneezing, runny nose or sore throat. SKIN: No rash or itching, lesions, wounds. CARDIOVASCULAR: + chest pain, chest pressure or chest discomfort, palpitations, edema, orthopnea. No syncopal events. RESPIRATORY: + shortness of breath, No cough or sputum, wheezing, hemoptysis. GASTROINTESTINAL: No anorexia, nausea, emesis, diarrhea, abdominal pain, melena,BRBPR. GENITOURINARY: No dysuria, frequency, urgency or retention. NEUROLOGICAL: No dizziness, headache, syncope, paralysis, ataxia, numbness or tingling in the extremities, focal weakness, change in bowel or bladder control,seizure. MUSCULOSKELETAL: + muscle, back pain, joint pain or stiffness. HEMATOLOGIC: + anemia, bleeding or bruising. LYMPHATICS: No enlarged nodes. No history of splenectomy. PSYCHIATRIC: + history of depression or anxiety. ENDOCRINOLOGIC: No reports of sweating, cold or heat intolerance. No polyuria orpolydipsia. ALLERGIES: No history of asthma, hives, eczema or rhinitis. Physical Exam Const alert, oriented x3 and no apparent distress General Appearance: cooperative, well kempt and well developed Orientation / Consciousness: awake, oriented to person, oriented to place and oriented to time HEENT normocephalic, head/scalp atraumatic and moist oral mucous membranes Eyes PERRL, EOMs intact bilaterally and conjunctivae normal Neck supple, no JVD, thyroid normal and no carotid bruits General: trachea midline Resp normal respiratory effort, no retractions, no use of accessory muscles and clearto auscultation bilaterally Auscultation: Negative for rales, rhonchi or wheezes Cardio S1 normal heart sound, S2 normal heart sound, no murmurs, no rub and no gallops Cardio Narrative: Heart rate and rhythm is irregular GI normal to inspection, nondistended, normoactive bowel sounds, soft to palpation,non-tender and non-distended Extremity no clubbing, cyanosis or edema Skin no rashes or lesions noted General Skin Exam: no breakdown Neuro oriented x3, CN's II-XII intact bilaterally, moves all extremities, no focal motor deficits and no sensory deficits noted Sensorium / Orientation: awake and alert Speech: speech normal Psych affect normal Lab / Micro Data 02/28/23 04:17 02/28/23 04:17 Labs: Laboratory Results - last 24 hr 02/27/23 11:55: POC Glucose 261 H 02/27/23 12:17: Hgb 7.4 L, Hct 24.0 L 02/27/23 13:15: Blood Type A POSITIVE, Antibody Screen NEGATIVE, Crossmatch See Detail 02/27/23 14:53: Hgb 7.3 L, Hct 24.5 L 02/27/23 17:10: POC Glucose 295 H 02/27/23 20:51: POC Glucose 243 H 02/28/23 04:17: WBC 12.0 H, RBC 3.01 L, Hgb 8.6 L, Hct 27.7 L, MCV 92.0, MCH 28.6, MCHC 31.0 L, RDW Std Deviation 58.5 H, RDW Coeff of Thao 18.0 H, Plt Count 276, MPV 9.3, Immature Gran % (Auto) 1.100 H, Neut % (Auto) 83.6 H, Lymph % (Auto) 5.2 L, Alpine % (Auto) 9.7, Eos % (Auto) 0.2, Baso % (Auto) 0.2, Absolute Neuts (auto) 10.1 H, Absolute Lymphs (auto) 0.63 L, Nucleated RBC % 0.3, PT 41.4H, INR 4.2 H*, APTT 28.9, Sodium 142, Potassium 4.0, Chloride 110 H, Carbon Dioxide 23.0, Anion Gap 9, BUN 123 H*, Creatinine 2.98 H, Estim Creat Clear Calc25.18, Est GFR (MDRD) Af Amer 27 L, Est GFR (MDRD) Non-Af 23 L, BUN/Creatinine Ratio 41.3 H, Glucose 223 H, Calcium 9.6, AST 92 H, ALT 82 H Assessment & Plan Assessment/Plan (1) Acute on chronic anemia: (2) GI bleed: QUALIFIERS: GI bleed type/associated pathology: unspecified gastrointestinal hemorrhage type Qualified Code(s): K92.2 - Gastrointestinal hemorrhage, unspecified PLAN: Plan 67-year-old gentleman with congestive heart failure, FAVIAN, atrial fibrillation onanticoagulation with acute blood loss anemia likely secondary to upper GI bleed. Recommend to check his INR continued on heparin and antiplatelet therapy. Correct INR if it is greater than 2.5 due to upper GI bleed. I will start him on octreotide and PPI drip. He will need to undergo an upper endoscopy. He wasexplained alternatives, risk, benefits including outstanding bleeding, infection, sepsis, perforation, need for more discharge and . He will havean ASA of 3. Charges/Coding Visit Charges Inpatient E&M: 61296 Init Hosp L3 02/28/23 0710 <Electronically signed by Louie Friend > Cosigner Signature (if applicable): CC: Dr. Cody Sears DO; Dr. Mery Raymond MD; Dr. Lyle Coleman MD~ Signed [facility] Work Phone: 1(293) 995-373411-21-2023 Procedure [facility] 02-27-2023 Progress note Author Tunde [facility] February 27, 2023 7:30pm Note Date/Time February 27, 2023 7:26pm [facility] Medical Records Department [address] [place] [address] Progress Note - Hospitalist 02/27/231913 MR#: [id number] Acct: [id number] Name: SHADE TEIXEIRA Rep #:[id number] : 1955 67 From: Tunde Miller DO PCP: Dr. Mery Raymond MD Status:A DM IN Location: [place] [address] Reason for Visit Reason for Visit: Diagnoses Other specified diabetes mellitus with diabetic chronic kidney disease (02/26/23) Acute on chronic diastolic (congestive) heart failure (02/26/23) Acute kidney failure, unspecified (02/26/23) Chronic kidney disease, stage 3a (02/26/23) Hypoxemia (02/26/23) longterm (current) use of insulin (02/26/23) Subjective Subjective Patient was seen and examined today, he had several episodes of emesis today, nursing states that there was dark material in the vomitus, I did not actually see what it look like. Patient's hemoglobin was obtained and it had dropped from 10.7 on 02/27/2020 to 8.8 this morning. I placed the patient on IV Protonix and redid his hemoglobin around 12 noon today, it was 7.4, I ordered 2 units to be typed and crossed and transfused. Patient states he has not had a history of peptic ulcer disease or gastrointestinal bleeding but he did have a history of a perforated colon 20 to 30 years ago. He states he believes it was from diverticular disease. Patient's blood pressure was slightly low this morning, I elected not to administer any fluid but I held his Lasix. Objective Data Objective Data Vital Signs: Vital Signs Temp Pulse Resp BP Pulse Ox O2 Del Method O2 Flow Rate 98.2 F 91 16 104/60 100 Nasal Cannula 2 02/27/23 19:05 02/27/23 19:05 02/27/23 19:05 02/27/23 19:05 02/27/23 19:05 02/27/23 19:05 02/27/23 19:05 Oxygen Flow Rate (L/min) 2 Oxygen Delivery Method Nasal Cannula Weight: 117 kg Body Mass Index (BMI) 37.0 Intake & Output: Intake and Output for Last 24 Hours 02/25/23 02/26/23 02/27/23 23:59 23:59 23:59 Intake Total 790 / 1150 1450 / 1450 Output Total 1800 / 2500 1999 / 1999 Balance -1010 / -1350 -550 / -550 Lab / Micro Data 02/27/23 14:53 02/27/23 04:27 Labs: Laboratory Results - last 24 hr 02/26/23 21:34: POC Glucose 174 H 02/27/23 04:27: WBC 7.8, RBC 3.06 L, Hgb 8.8 L, Hct 29.3 L, MCV 95.8 H, MCH 28.8, MCHC 30.0 L, RDW Std Deviation 56.4 H, RDW Coeff of Thao 16.4 H, Plt Count 299, MPV 9.4, Sodium 140, Potassium 4.0, Chloride 108 H, Carbon Dioxide 24.0, Anion Gap 8, BUN 71 H, Creatinine 2.46 H, Estim Creat Clear Calc 30.50, Est GFR (MDRD) Af Amer 34 L, Est GFR (MDRD) Non-Af 28 L, BUN/Creatinine Ratio 28.9 H, Glucose 198 H, Calcium 10.2 H 02/27/23 05:58: POC Glucose 220 H 02/27/23 11:55: POC Glucose 261 H 02/27/23 12:17: Hgb 7.4 L, Hct 24.0 L 02/27/23 13:15: Blood Type A POSITIVE, Antibody Screen NEGATIVE, Crossmatch See Detail 02/27/23 14:53: Hgb 7.3 L, Hct 24.5 L 02/27/23 17:10: POC Glucose 295 H Physical Exam Const alert, oriented x3 and no apparent distress General Appearance: cooperative, well kempt and well developed Orientation / Consciousness: awake, oriented to person, oriented to place and oriented to time HEENT normocephalic, head/scalp atraumatic and moist oral mucous membranes Eyes PERRL, EOMs intact bilaterally and conjunctivae normal Neck supple, no JVD, thyroid normal and no carotid bruits General: trachea midline Resp normal respiratory effort, no retractions, no use of accessory muscles and clearto auscultation bilaterally Auscultation: Negative for rales, rhonchi or wheezes Cardio S1 normal heart sound, S2 normal heart sound, no murmurs, no rub and no gallops Cardio Narrative: Heart rate and rhythm is irregular GI normal to inspection, nondistended, normoactive bowel sounds, soft to palpation,non-tender and non-distended Extremity no clubbing, cyanosis or edema Skin no rashes or lesions noted General Skin Exam: no breakdown Neuro oriented x3, CN's II-XII intact bilaterally, moves all extremities, no focal motor deficits and no sensory deficits noted Sensorium / Orientation: awake and alert Speech: speech normal Psych affect normal Assessment & Plan Assessment/Plan (1) Heart failure with preserved ejection fraction: QUALIFIERS: Heart failure chronicity: acute on chronic Qualified Code(s): I50.33 - Acute on chronic diastolic (congestive) heart failure PLAN: Plan 1. Acute on chronic congestive heart failure with preserved ejection fraction-patient's Lasix will be held at this time, patient is currently on nasal cannulaoxygen at 2 L, he stated in the past he was on home O2 but it was taken out of his home. #2 hematemesis with acute anemia-patient will receive 2 units of packed red blood cells, CBC will be repeated, patient will be seen in consultation by gastroenterology, he was placed on a PPI today, it is not possible to take the patient off his antiplatelet drug due to his recent stent in October of this year #3 chronic atrial fibrillation-patient is currently not on any anticoagulation, due to his GI bleed, I will refrain from placing the patient on any anticoagulation at this time #4 hypoxia-probably secondary to congestive heart failure-pulse ox will be monitored #5 essential hypertension-patient's blood pressure will be monitored, it may be necessary to hold some of his blood pressure medications due to his hypotension earlier today #6 type 2 diabetes-patient's blood sugars will be monitored, sliding scale insulin will be administered as needed #7 noncompliance with medical regimen-patient states that he did not receive hisfurosemide by mail and he did not contact any of his physicians about obtaining any furosemide #8 coronary artery disease-this appears stable at this time, again patient is noncompliant with his home medications, patient is supposed to be taking Plavix and Eliquis, he was not on Eliquis. Total clinical time spent by myself addressing the patient's medical issues, reviewing all of his data, and collaborating with patient's care team: 35 minutes Charges/Coding Visit Charges Inpatient E&M: 84460 [facility] L2 02/27/231929 <Electronically signed by Tunde Miller DO> Cosigner Signature (if applicable): CC: ~ Signed [facility] Work Phone: 1(386) 564-394911-19-2023 Progress note Author Lyle Coleman [facility] February 26, 2023 9:57pm Note Date/Time February 26, 2023 9:57pm [facility] Medical Records Department [address] [place] [id number] Progress Note 02/26/232154 MR#: [id number] Acct: [id number] Name: SHADE TEIXEIRA Rep #:[id number] : 1955 67 From: Lyle Coleman MD PCP: Dr. Mery Raymond MD Status:A DM IN Location: [facility] [id number] Progress Note Nurse reports that he is not on Eliquis; but on only Plavix. Patient was seen at the bedside and confirmed that he is not on Eliquis but on only Plavix at home. However patient has history of A-fib and is a candidate for Eliquis. Continue Eliquis at this time. Nursing team to check with PCP records on whether patient is on home Eliquis or not. 02/26/232156 <Electronically signed by Lyle Coleman MD> Lyle Coleman MD Cosigner Signature (if applicable): CC: ~ Signed [facility] Work Phone: 1(896) 904-584611-19-2023 Progress note Author Cody Sears [facility] February 26, 2023 12:13pm Note Date/Time February 26, 2023 12:13pm [facility] Medical Records Department [address] [place] [address] Progress Note - Hospitalist 02/26/23 1210 MR#: [id number] Acct: [id number] Name: SHADE TEIXEIRA Praveen Rep #:[id number] : 1955 67 From: Cody bailon DO PCP: Dr. Mery Raymond MD Status:A DM IN Location: [place] [address] Hospitalist Note Patient admitted after midnight by Dr. Coleman for acute exacerbation of heart failure with preserved ejection fraction, presumed secondary to patient running out of his Lasix at home. Patient seen at bedside this morning, was sitting in bedside chair, conversing normally, no acute distress. Has started to have goodurine output with IV Lasix. Remains moderately volume overloaded at this time. We will continue with IV Lasix 40 mg twice daily per Dr. Coleman's recommendations. Monitoring BMP daily, monitoring urine output. Full progress note to follow tomorrow. 02/26/231212 <Electronically signed by Cody Sears DO> Cosigner Signature (if applicable): CC: ~ Signed [facility] Work Phone: [phone] 199-286311-19-2023 History and physical note Author Lyle Coleman [facility] February 26, 2023 6:21am Note Date/Time February 26, 2023 3:15am [facility] Medical Records Department [address] [place] [address] H&P Exam - Hospitalist 02/26/23 0311 MR#: [id number] Acct: [id number] Name: TEIXEIRASHADE Rep #:[id number] : 1955 67 From: Lyle Coleman MD PCP: Dr. Mery Raymond MD Status:A DM IN Location: [place] [address] HPI - General General Date of Admission: 02/26/23 Date of Service: 02/26/23 HPI Narrative SHADE TEIXEIRA, is a 67 M with a significant history of hypertension; obstructivesleep apnea; heart failure with preserved ejection fraction who presents TO THE emergency department with 1 week of shortness of breath. Thirty minutes presentation his shortness of breath XL increased. Associated symptom is fatigue. Of note patient's missed his Lasix for about 1 week since he ran out of it. Also he has not been taking his Synthroid because he ran out of it. [facility] Medical History Abnormal chest xray Acquired left ventricular hypertrophy Acute midline thoracic back pain Adult failure to thrive Anemia Anxiety and depression Arthritis Asthma Atherosclerosis of coronary artery of [place] heart without angina pectoris Atrial fibrillation Benign essential HTN Chest pain Chronic hypoxemic respiratory failure Chronic pain of both knees Chronic wound of head Colon cancer screening Congestive heart failure Dark stools Debility Depression Diabetes Dizziness MEANS (dyspnea on exertion) Dyspnea on exertion Essential (primary) hypertension Fatigue Health care maintenance History of DVT (deep vein thrombosis) History of pulmonary embolism Hypercalcemia Hyperlipidemia Hyperparathyroidism Hypertriglyceridemia Hypoxia Insomnia Morbid obesity with BMI of 40.0-44.9, adult Near syncope Obesity Olecranon bursitis FAVIAN (obstructive sleep apnea) Osteoarthritis Osteopenia Primary hyperparathyroidism Pure hypercholesterolemia Renal insufficiency Sciatica Secondary pulmonary hypertension Seizures Shortness of breath Type 2 diabetes mellitus Vertigo Vitamin D deficiency Home Medications Handicap Placard #1 ea 04/08/20 [Rx Last Taken Unknown] flash glucose scanning reader (FreeStyle Tiffanie 2 Riparius) #1 ea 02/16/21 [Rx Last Taken Unknown] flash glucose sensor (FreeStyle Tiffanie 2 Sensor kit) #2 ea 02/16/21 [Rx Last Taken Unknown] pen needle, diabetic 32 gauge x 5/32 (BD Ultra-Fine Lorie Pen Needle) #360 ea 04/08/22 [Rx Last Taken Unknown] ferrous sulfate 325 mg (65 mg iron) tablet 325 mg PO DAILY #90 tabs 08/18/22 [Rx Last Taken 10/16/22] blood sugar diagnostic (ATRI - Addiction Treatment Reviews & InformationTouch Verio test strips) #100 ea 09/06/22 [Rx Last Taken Unknown] cinacalcet 30 mg tablet 30 mg PO BID hypercalcemia #60 tabs 09/06/22 [Rx Last Taken 10/16/22] cholecalciferol (vitamin D3) 1,250 mcg (50,000 unit) capsule 1,250 mcg PO QWEEK #8 caps 09/07/22 [Rx Last Taken 10/10/22] furosemide 20 mg tablet 40 mg (2 x 20 mg) PO BID 90 days #360 tabs 09/09/22 [Rx Last Taken 10/16/22] metoprolol succinate 50 mg tablet,extended release 24 hr 50 mg PO BID BLOOD PRESSURE #180 tabs 09/21/22 [Rx Last Taken 10/16/22] clopidogrel 75 mg tablet 75 mg PO DAILY BLOOD THINNER #90 tabs 10/03/22 [Rx Last Taken 02/25/23] tramadol 50 mg tablet 50 mg PO Q6H PRN PRN Pain Score 6-10 3 days #10 tabs 10/18/22 [Rx Last Taken Unknown] acetaminophen 650 mg rectal suppository 650 mg MA Q4H PRN fever or pain 10/20/22[History Last Taken Unknown] aluminum-magnesium hydroxide 225 mg-200 mg/5 mL oral suspension 30 ml PO DAILY PRN GI DISTRESS 10/20/22 [History Last Taken Unknown] bisacodyl 10 mg rectal suppository 10 mg MA DAILY PRN constipation 10/20/22 [History Last Taken Unknown] dextrose 40 % oral gel (Glucose Gel) 15 g PO Q15M PRN hypoglycemia 10/20/22 [History Last Taken Unknown] fenofibrate micronized 200 mg capsule 200 mg PO DAILY cholesterol #30 caps 10/20/22 [Rx Last Taken Unknown] glucagon HCl 1 mg solution for injection (Glucagon (HCl) Emergency Kit) 1 mg IM Q20M PRN hypoglycemia 10/20/22 [History Last Taken Unknown] guaifenesin 200 mg/5 mL oral liquid 200 mg PO Q4H PRN congestion 10/20/22 [History Last Taken Unknown] magnesium hydroxide 400 mg/5 mL oral suspension (Milk of Magnesia) 30 ml PO DAILY PRN constipation 10/20/22 [History Last Taken Unknown] sodium phosphates 19 gram-7 gram/118 mL enema (Enema) 118 ml MA DAILY PRN constipation 10/20/22 [History Last Taken Unknown] apixaban 5 mg tablet (Eliquis) 5 mg PO BID blood thinne #30 tabs 10/27/22 [Rx Last Taken Unknown] insulin glargine 100 unit/mL (3 mL) subcutaneous pen (Lantus Solostar U-100 Insulin) 7 unit (0.07 mL) subcut DAILY #15 mL 10/27/22 [Rx Last Taken Unknown] potassium chloride 20 mEq tablet,extended release(part/cryst) 20 meq PO BID potassium 90 days #540 tabs 11/09/22 [Rx Last Taken Unknown] amlodipine 10 mg tablet 10 mg PO DAILY BLOOD PRESSURE #90 tabs 11/18/22 [Rx Last Taken 02/25/23] losartan 25 mg tablet 25 mg PO DAILY blood pressure #90 tabs 12/08/22 [Rx Last Taken Unknown] ranolazine 500 mg tablet,extended release,12 hr 500 mg PO BID chest pain #180 tabs 12/20/22 [Rx Last Taken Unknown] Ozempic 1 mg/dose (4 mg/3 mL) subcutaneous pen injector (semaglutide) 1 mg (0.75mL) subcut QWEEK weight loss #3 mL 12/28/22 [Rx Last Taken Unknown] nitroglycerin 0.4 mg sublingual tablet See Rx Instructions .Route .COMPLEX chestpain #25 tabs 01/18/23 [Rx Last Taken Unknown] paroxetine HCl 40 mg tablet 40 mg PO DAILY depression #90 tabs 02/09/23 [Rx Last Taken Unknown] insulin regular hum U-500 conc 500 unit/mL(3 mL) subcut pen (Humulin R U-500 (Conc) Insulin Kwikpen) 30 unit subcut .TIDCM blood sugar 02/26/23 [History Last Taken 02/25/23] Allergy/AdvReac Type Severity Reaction Status Date / Time No Known Allergies Allergy Verified 02/26/23 01:14 Family History Mother Colon cancer Sister CAD (coronary artery disease) CABG x 5 Diabetes Myocardial infarction, Onset Age: 67 Father Crohns disease Surgical History History of appendectomy 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 Smoking Status: Never smoker second hand exposure: Yes alcohol intake: former year quit: 2003 details: Sober since 2003. substance use type: former substance user Date of last use: 04/10/2004 and marijuana caffeine: Yes Type: carbonated beverages Number of servings: 2 and coffee Number of servings: 2 what type of physical activity do you participate in: none ROS ROS Narrative Pertinent positives and pertinent negatives as noted in HPI. All other systems were reviewed and are negative Vital Signs Vital Signs Vital Signs: 02/26/23 01:14 02/26/23 01:17 02/26/23 01:17 Temperature 97.3 F L 97.3 F L Temperature Source Temporal Temporal Pulse Rate 96 89 Respiratory Rate 24 H 32 H Respiratory Effort Respiratory Pattern Blood Pressure 202/108 H 202/108 H Blood Pressure Mean 139 139 Pulse Ox 95 96 97 Oxygen Delivery Method Nasal Cannula Nasal Cannula Nasal Cannula Oxygen Flow Rate (L/min) 4 4 4 02/26/23 01:20 02/26/23 01:56 02/26/23 01:35 Temperature Temperature Source Pulse Rate 87 Respiratory Rate 26 H Respiratory Effort Short of Breath Labored Respiratory Pattern Tachypnea Blood Pressure Blood Pressure Mean Pulse Ox Oxygen Delivery Method Nasal Cannula Nasal Cannula Oxygen Flow Rate (L/min) 4 4 02/26/23 02:56 Temperature Temperature Source Pulse Rate Respiratory Rate Respiratory Effort Respiratory Pattern Blood Pressure Blood Pressure Mean Pulse Ox 87 Oxygen Delivery Method Room Air Oxygen Flow Rate (L/min) Weight Weight: 120.8 kg Body Mass Index (BMI) 38.2 Physical Exam Narrative Physical exam: General: Well-nourished, well-developed. Head: Normocephalic, atraumatic, no tenderness Eyes: Vision is grossly intact. EOMI ENT, no trauma, moist mucous membranes, no rhinorrhea Neck: Nontender, No thyromegaly. CVS: Regular rate and rhythm. S1-S2 present. No murmur, gallop or rub. Respiratory : clear to auscultation bilaterally, chest wall nontender Abdomen: Soft, nontender, nondistended, normal bowel sounds, no masses : Deferred Back: Nontender, no CVA tenderness, Extremities: Nontender full range of motion, no trauma Skin: Normal color, no trauma, abrasions Neuro: Alert, oriented, cranial nerves II through XII grossly intact. Psychiatry: Normal mood. Normal affect. Not depressed. Not anxious. Results Lab / Micro Data 02/26/23 01:52 02/26/23 01:52 Labs: Laboratory Results - last 24 hr 02/26/23 01:52: WBC 9.3, RBC 3.52 L, Hgb 10.1 L, Hct 33.1 L, MCV 94.0, MCH 28.7,MCHC 30.5 L, RDW Std Deviation 55.4 H, RDW Coeff of Thao 16.5 H, Plt Count 267, MPV 9.2, Immature Gran % (Auto) 1.000 H, Neut % (Auto) 84.1 H, Lymph % (Auto) 4.4 L, Alpine % (Auto) 8.9, Eos % (Auto) 1.2, Baso % (Auto) 0.4, Absolute Neuts (auto) 7.9 H, Absolute Lymphs (auto) 0.41 L, Nucleated RBC % 0, Differential Comment SCANNED, Sodium 141, Potassium 4.4, Chloride 110 H, Carbon Dioxide 24.0,Anion Gap 7, BUN 54 H, Creatinine 2.74 H, Estim Creat Clear Calc 27.38, Est GFR (MDRD) Af Amer 30 L, Est GFR (MDRD) Non-Af 25 L, BUN/Creatinine Ratio 19.7, Glucose 194 H, Calcium 10.4 H, Troponin I High Sens 28, B-Natriuretic Peptide 417.8 H, TSH 2.52 Imagaing Radiology Impression Chest X-Ray 02/26/23 02:05 IMPRESSION: Right infrahilar atelectasis versus infiltrate. 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 use: with mcc use Diabetes mellitus complication status: with kidney complications Chronic kidney disease stage: stage 3 (moderate) Chronic kidney disease stage 3 subtype: stage 3a (GFR 45-59) Diabetes mellitus type: other specified (including MARIE) Diabetes mellitus complication detail: with chronic kidney disease Qualified Code(s): E13.22 - Other specified diabetes mellitus with diabetic chronic kidney disease; N18.31 - Chronic kidney disease, stage 3a; Z79.4 - 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 Agrees with Radiology interpretation. Weight on admission to the floor; and then daily Strict I&O's Emergency department labs reviewed showed BNPNof 417.8 Lasix 40 mg IV twice daily ordered. Trend BMP. Echocardiogram on 10/22/2019 showed normal EF Fluid restriction of 1500 mls daily 2 g cardiac diet CAD status post stents Cardiac cath on 10/26/2022 was reviewed. Patient patient had successful DANIEL to OM1, OM 2 and LAD. Stable. CLARA Creatinine of 2.74. Baseline creatinine is around 1.45-1.70. Likely cardiorenal syndrome. Lasix as above. Diabetes mellitus Blood glucose is not within goal. Accu-Cheks with correction scale insulin ordered. Home regimen held at this time. DVT prophylaxis Subcutaneous heparin ordered. Charges/Coding Visit Charges Inpatient E&M: 36794 Init Hosp L3 02/26/23 0621 <Electronically signed by Lyle Coleman MD> Cosigner Signature (if applicable): CC: Dr. Mery Raymond MD; Dr. Lyle Coleman MD~ Signed [facility] Work Phone: [phone]) 563-464911-19-2023 Discharge summary Author Linus Yanez [facility] February 26, 2023 2:59am Note Date/Time February 26, 2023 1:26am [facility] Medical Records Department [address] [place] [address] Emergency Department Summary 02/26/23 MR#: [id number] Acct: [id number] Name: SHADE TEIXEIRA Rep #:[id number] : 1955 67 From: Linus Yanez MD PCP: Dr. Mery Raymond MD Status:A DM IN Location: [address] HPI History of Present Illness Chief Complaint: Shortness of Breath Informant: patient and EMS Narrative Narrative: Presents with dyspnea by EMS. Patient states that about a week ago he started getting slightly short of breath. But it is gotten slowly worse. He is gotten a cough over the last day or so but no productivity. No fevers chills. He is not having chest pain. After extensive questioning I find out he was on Lasix but ran out about a week ago. He is not sure what his dosage was but its been as high as 40 mg twice a day. He also ran out of Synthroid but that is only been about 3 days. He cannot lay flat. No hemoptysis or sputum production. [facility] Medical History (Updated 02/26/23 @ 02:[address] Linus Yanez MD) Abnormal chest xray Acquired left ventricular hypertrophy Acute midline thoracic back pain Adult failure to thrive Anemia Anxiety and depression Arthritis Asthma Atherosclerosis of coronary artery of [place] heart without angina pectoris Atrial fibrillation Benign essential HTN Chest pain Chronic hypoxemic respiratory failure Chronic pain of both knees Chronic wound of head Colon cancer screening Congestive heart failure Dark stools Debility Depression Diabetes Dizziness MEANS (dyspnea on exertion) Dyspnea on exertion Essential (primary) hypertension Fatigue Health care maintenance History of DVT (deep vein thrombosis) History of pulmonary embolism Hypercalcemia Hyperlipidemia Hyperparathyroidism Hypertriglyceridemia Hypoxia Insomnia Morbid obesity with BMI of 40.0-44.9, adult Near syncope Obesity Olecranon bursitis FAVIAN (obstructive sleep apnea) Osteoarthritis Osteopenia Primary hyperparathyroidism Pure hypercholesterolemia Renal insufficiency Sciatica Secondary pulmonary hypertension Seizures Shortness of breath Type 2 diabetes mellitus Vertigo Vitamin D deficiency Home Medications Handicap Placard #1 ea 04/08/20 [Rx Last Taken Unknown] flash glucose scanning reader (FreeStyle Tiffanie 2 Riparius) #1 ea 02/16/21 [Rx Last Taken Unknown] flash glucose sensor (FreeStyle Tiffanie 2 Sensor kit) #2 ea 02/16/21 [Rx Last Taken Unknown] pen needle, diabetic 32 gauge x 5/32 (BD Ultra-Fine Lorie Pen Needle) #360 ea 04/08/22 [Rx Last Taken Unknown] ferrous sulfate 325 mg (65 mg iron) tablet 325 mg PO DAILY #90 tabs 08/18/22 [Rx Last Taken 10/16/22] blood sugar diagnostic (OneTouch Verio test strips) #100 ea 09/06/22 [Rx Last Taken Unknown] cinacalcet 30 mg tablet 30 mg PO BID #60 tabs 09/06/22 [Rx Last Taken 10/16/22] cholecalciferol (vitamin D3) 1,250 mcg (50,000 unit) capsule 1,250 mcg PO QWEEK #8 caps 09/07/22 [Rx Last Taken 10/10/22] furosemide 20 mg tablet 40 mg (2 x 20 mg) PO BID 90 days #360 tabs 09/09/22 [Rx Last Taken 10/16/22] metoprolol succinate 50 mg tablet,extended release 24 hr 50 mg PO BID BLOOD PRESSURE #180 tabs 09/21/22 [Rx Last Taken 10/16/22] clopidogrel 75 mg tablet 75 mg PO DAILY BLOOD THINNER #90 tabs 10/03/22 [Rx Last Taken 10/16/22] tramadol 50 mg tablet 50 mg PO Q6H PRN PRN Pain Score 6-10 3 days #10 tabs 10/18/22 [Rx Last Taken Unknown] acetaminophen 650 mg rectal suppository 650 mg MA Q4H PRN fever or pain 10/20/22[History Last Taken Unknown] aluminum-magnesium hydroxide 225 mg-200 mg/5 mL oral suspension 30 ml PO DAILY PRN GI DISTRESS 10/20/22 [History Last Taken Unknown] bisacodyl 10 mg rectal suppository 10 mg MA DAILY PRN constipation 10/20/22 [History Last Taken Unknown] dextrose 40 % oral gel (Glucose Gel) 15 g PO Q15M PRN hypoglycemia 10/20/22 [History Last Taken Unknown] fenofibrate micronized 200 mg capsule 200 mg PO DAILY #30 caps 10/20/22 [Rx Last Taken Unknown] glucagon HCl 1 mg solution for injection (Glucagon (HCl) Emergency Kit) 1 mg IM Q20M PRN hypoglycemia 10/20/22 [History Last Taken Unknown] guaifenesin 200 mg/5 mL oral liquid 200 mg PO Q4H PRN congestion 10/20/22 [History Last Taken Unknown] magnesium hydroxide 400 mg/5 mL oral suspension (Milk of Magnesia) 30 ml PO DAILY PRN constipation 10/20/22 [History Last Taken Unknown] sodium phosphates 19 gram-7 gram/118 mL enema (Enema) 118 ml MA DAILY PRN constipation 10/20/22 [History Last Taken Unknown] apixaban 5 mg tablet (Eliquis) 5 mg PO BID #30 tabs 10/27/22 [Rx Last Taken Unknown] insulin glargine 100 unit/mL (3 mL) subcutaneous pen (Lantus Solostar U-100 Insulin) 7 unit (0.07 mL) subcut DAILY #15 mL 10/27/22 [Rx Last Taken Unknown] insulin regular hum U-500 conc 500 unit/mL(3 mL) subcut pen (Humulin R U-500 (Conc) Insulin Kwikpen) 10 unit (0.02 mL) subcut .TIDCM #6 mL 10/27/22 [Rx Last Taken 10/16/22] potassium chloride 20 mEq tablet,extended release(part/cryst) 20 meq PO BID potassium 90 days #540 tabs 11/09/22 [Rx Last Taken Unknown] amlodipine 10 mg tablet 10 mg PO DAILY BLOOD PRESSURE #90 tabs 11/18/22 [Rx Last Taken Unknown] losartan 25 mg tablet 25 mg PO DAILY #90 tabs 12/08/22 [Rx Last Taken Unknown] ranolazine 500 mg tablet,extended release,12 hr 500 mg PO BID #180 tabs 12/20/22[Rx Last Taken Unknown] Ozempic 1 mg/dose (4 mg/3 mL) subcutaneous pen injector (semaglutide) 1 mg (0.75mL) subcut QWEEK #3 mL 12/28/22 [Rx Last Taken Unknown] nitroglycerin 0.4 mg sublingual tablet See Rx Instructions .Route .COMPLEX #25 tabs 01/18/23 [Rx Last Taken Unknown] paroxetine HCl 40 mg tablet 40 mg PO DAILY depression #90 tabs 02/09/23 [Rx Last Taken Unknown] Allergy/AdvReac Type Severity Reaction Status Date / Time No Known Allergies Allergy Verified 02/26/23 01:14 Family History Mother Colon cancer Sister CAD (coronary artery disease) CABG x 5 Diabetes Myocardial infarction, Onset Age: 67 Father Crohns disease Surgical History (Updated 02/26/23 @ 01:[address] 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 Smoking Status: Never smoker second hand exposure: Yes alcohol intake: former year quit: 2003 details: Sober since 2003. substance use type: former substance user Date of last use: 04/10/2004 and marijuana caffeine: Yes Type: carbonated beverages Number of servings: 2 and coffee Number of servings: 2 what type of physical activity do you participate in: none ROS ROS ED ROS Narrative A complete review of systems was performed and is negative except as documented in the history of present illness. Some specific details below. Constitutional: No recent fevers or chills. EYE: No discharge, visual complaints, or pain. ENT: No difficulty swallowing. No swelling. No pain. No reflux symptoms. CV: No hest pain or palpitations. Respiratory: See history of present illness. GI: No abdominal pain. No nausea vomiting diarrhea. No blood in stool. : No frequency dysuria or hematuria. Musculoskeletal: No recent trauma. No pains. No new or worsening swelling. Skin: No rash. Nondiaphoretic. Neuro: No weakness or numbness. Endocrine: No polyuria or polydipsia. EXAM Physical Exam Narrative Exam Narrative: CONSTITUTIONAL: Patient is awake alert. He does have increased work of breathing. HEENT: No notable trauma. Mucous membranes moist. No sinus tenderness. No indication of pain with swallowing. EYES: No conjunctival injection. No proptosis. NECK:No JVD. No stridor. CARDIOVASCULAR: Regular rate. Regular rhythm. No notable murmur. No JVD. RESPIRATORY: Easy work of breathing. Saturations are good on 4 L of oxygen. Hehas basilar crackles and decreased breath sounds about mcfp up. GASTROINTESTINAL: Not distended. Bowel sounds are normal. No tenderness. No guarding. No rebound. No palpable mass. No bruit is heard. GENITOURINARY: No tenderness over the bladder. No CVA tenderness. MUSCULOSKELETAL: Does have bilateral edema. NEUROLOGICAL: Patient is alert and appropriate. No focal deficit noted. SKIN: No noted rashes. No diaphoresis. PSYCHIATRIC: Patient is calm. Mood is appropriate. Const Vital Signs: 02/26/23 01:14 02/26/23 01:17 02/26/23 01:17 Temperature 97.3 F L 97.3 F L Temperature Source Temporal Temporal Pulse Rate 96 89 Respiratory Rate 24 H 32 H Respiratory Effort Respiratory Pattern Blood Pressure 202/108 H 202/108 H Blood Pressure Mean 139 139 Pulse Ox 95 96 97 Oxygen Delivery Method Nasal Cannula Nasal Cannula Nasal Cannula Oxygen Flow Rate (L/min) 4 4 4 02/26/23 01:20 02/26/23 01:56 02/26/23 01:35 Temperature Temperature Source Pulse Rate 87 Respiratory Rate 26 H Respiratory Effort Short of Breath Labored Respiratory Pattern Tachypnea Blood Pressure Blood Pressure Mean Pulse Ox Oxygen Delivery Method Nasal Cannula Nasal Cannula Oxygen Flow Rate (L/min) 4 4 MDM MDM MDM Narrative Medical decision making narrative: My independent interpretation of the patient's single view AP chest x-ray does show signs of congestion with some fluid in the major fissure on the right. Final reading is pending Final reading then shows right inferior atelectasis versus infiltrate. But I think there is increased markings on both sides and his clinical picture is moreconsistent with CHF. He has no fever or white count. Patient CBC shows mild anemia at 10.1. White count and platelets are normal. Platelets are normal. Electrolytes do show an acute kidney injury with a creatinine at 2.74 when his baseline appears to be closer to 1.5. Since all his symptoms are recent I thinkthis likely is an acute change. His TSH is still normal. Patient's troponin is normal. Patient's BNP is high at 417. This is the highest we have on record for him. Since this patient is now on oxygen which is not typical for him, he has elevated creatinine, high BNP and signs of CHF I do think inpatient management is appropriate. Lab Data Labs: Laboratory Results - last 24 hr 02/26/23 01:52 WBC 9.3 RBC 3.52 L Hgb 10.1 L Hct 33.1 L MCV 94.0 MCH 28.7 MCHC 30.5 L RDW Std Deviation 55.4 H RDW Coeff of Thao 16.5 H Plt Count 267 MPV 9.2 Immature Gran % (Auto) 1.000 H Neut % (Auto) 84.1 H Lymph % (Auto) 4.4 L Alpine % (Auto) 8.9 Eos % (Auto) 1.2 Baso % (Auto) 0.4 Absolute Neuts (auto) 7.9 H Absolute Lymphs (auto) 0.41 L Nucleated RBC % 0 Differential Comment SCANNED Sodium 141 Potassium 4.4 Chloride 110 H Carbon Dioxide 24.0 Anion Gap 7 BUN 54 H Creatinine 2.74 H Estim Creat Clear Calc 27.38 Est GFR (MDRD) Af Amer 30 L Est GFR (MDRD) Non-Af 25 L BUN/Creatinine Ratio 19.7 Glucose 194 H Calcium 10.4 H Troponin I High Sens 28 B-Natriuretic Peptide 417.8 H TSH 2.52 Radiography Diagnostic Testing: Clinical Impression(s) from Imaging Studies Chest X-Ray 02/26/23 02:05 IMPRESSION: Right infrahilar atelectasis versus infiltrate. Electronically Signed: Adin Estes DO at 2:53 EST , EKG Initial EKG: Comments: Been interpretation of the patient's EKG shows sinus rhythm withoverall rate of 92. No noted ectopy. There are some diffuse ST and T wave changes. MA interval, QRS duration and QTc are normal. There is some very subtle lateral ST depression that is different than 27 October 2022. But patient has no chest pain pressure or discomfort. Discharge Plan Dx/Rx/DC Orders Clinical Impression: Acute kidney injury, Congestive heart failure, Hypoxia Disposition Disposition: Acute Care Hospital [facility] What to do if you have Problems For any increased pain, shortness of breath, bleeding, nausea or vomiting, chestpain, or any unexpected problems, contact your Primary Care Provider. Call [facility] ([phone]) or report to the closest Emergency Room. Call 911 if necessary. 02/26/23 0258 <Electronically signed by Linus Yanez MD> Cosigner Signature (if applicable): CC: Dr. Mery Raymond MD ~ Signed ADDENDUM by Dr. Linus Yanez MD on 02/26/23 at 0259 We did check patient's saturations on room air and they are at 87%. He is put back on 4 L. 02/26/23 0259<Electronically signed by Linus Yanez MD> Cosigner Signature (if applicable): cc: Dr. Mery Raymond MD ~* Signed [facility] Work Phone: 1(653) 363-555607-20-2023 Progress note Author Kassidy Velez [facility] October 27, 2022 9:33am Note Date/Time October 27, 2022 9:33 am [facility] Medical Records Department [address] [place] [address] Progress Note - Hospitalist 10/27/22930 MR#: [id number] Acct: [id number] Name: SHADE TEIXEIRA Rep #:[id number] : 1955 66 From: Kassidy Velez MD PCP: Dr. Mery Raymond MD Status:A DM IN Location: [place] [address] Reason for Visit Reason for Visit: Diagnoses Type 2 diabetes mellitus with hyperglycemia (10/21/22) Pure hyperglyceridemia (10/21/22) Hypercalcemia (10/21/22) Atherosclerotic heart disease of [place] coronary artery without angina pectoris (10/21/22) Unspecified atrial fibrillation (10/21/22) Other chest pain (10/21/22) longterm (current) use of insulin (10/21/22) Presence of coronary angioplasty implant and graft (10/21/22) Subjective Subjective Feeling a little bit sore from the positioning during cardiac cath but denies any chest pain or shortness of breath Objective Data Objective Data Vital Signs: Vital Signs Temp Pulse Resp BP Pulse Ox O2 Del Method O2 Flow Rate 97.6 F L 70 18 166/82 H 94 Room Air 2 10/27/22 08:48 10/27/22 08:55 10/27/22 08:48 10/27/22 08:55 10/27/22 08:48 10/27/22 08:48 10/26/22 06:19 Oxygen Flow Rate (L/min) 2 Oxygen Delivery Method Room Air Weight: 118.2 kg Body Mass Index (BMI) 37.3 Intake & Output: Intake and Output for Last 24 Hours 10/25/22 10/26/22 10/27/22 23:59 23:59 23:59 Intake Total 1943.95 / 1943.95 2328.54 / 2328.54 60 / 60 Output Total 1475 / 1475 2500 / 2500 Balance 468.95 / 468.95 -171.46 / -171.46 60 / Lab / Micro Data 10/27/22 05:57 10/27/22 05:57 Labs: Laboratory Results - last 24 hr 10/26/22 08:33: POC Glucose 116 H 10/26/22 10:20: Activated Clotting Time 275 H 10/26/22 11:05: Activated Clotting Time 251 H 10/26/22 11:52: POC Glucose 100 10/26/22 13:03: APTT 139.1 H* 10/26/22 16:24: POC Glucose 145 H 10/26/22 21:32: POC Glucose 169 H 10/27/22 05:57: WBC 6.9, RBC 4.36 L, Hgb 12.5 L, Hct 40.3, MCV 92.4, MCH 28.7, MCHC 31.0 L, RDW Std Deviation 46.9 H, RDW Coeff of Thao 13.8, Plt Count 354, MPV9.3, Sodium 138, Potassium 4.0, Chloride 106, Carbon Dioxide 24.0, Anion Gap 8, BUN 26 H, Creatinine 1.64 H, Estim Creat Clear Calc 46.37, Est GFR (MDRD) Af Amer 54 L, Est GFR (MDRD) Non-Af 45 L, BUN/Creatinine Ratio 15.9, Glucose 131 H,Calcium 10.5 H, Total Bilirubin 0.50, AST 19, ALT 29, Alkaline Phosphatase 57, Total Protein 7.3, Albumin 3.6, Globulin 3.7, Albumin/Globulin Ratio 1.0 10/27/22 06:50: POC Glucose 127 H Physical Exam Narrative General: Alert, oriented, no apparent distress HEENT: Atraumatic, normocephalic Eyes: Anicteric, normal conjunctiva, extraocular movements grossly intact Neck: Supple Respiratory: normal respiratory effort Cardiovascular: Regular rate GI: Soft, nontender, nondistended Extremities: 1+ lower extremity edema Musculoskeletal: Moving all extremities Neuro: No overt focal neurological deficits Skin: No rashes appreciated Psych: Cooperative Assessment & Plan Assessment/Plan (1) Atherosclerosis of coronary artery of [place] heart without angina pectoris: QUALIFIERS: Coronary Disease-Associated Artery/Lesion type: nativeartery Qualified Code(s): I25.10 - Atherosclerotic heart disease of [place] coronary artery without angina pectoris (2) Hypertriglyceridemia: (3) Diabetes: QUALIFIERS: Diabetes mellitus type: type 2 Diabetes mellitus shelter insulin use: with mcc use Diabetes mellitus complication status: with hyperglycemia Qualified Code(s): E11.65 - Type 2 diabetes mellitus with hyperglycemia; Z79.4 - longterm (current) use of insulin (4) Hypercalcemia: PLAN: Plan #Chest discomfort?determined to be unstable angina -With known history of coronary artery disease with PCI and stenting of LAD in May 2016 and stent of OM1 in October 2021 -Patient presently chest pain-free but did have abnormal nuclear stress test, ideally will undergo cardiac cath before discharge but can be scheduled on a close outpatient basis if this is not feasible -Continue heparin drip, patient will require chronic anticoagulation with atrialfibrillation, will switch to oral AC pending Decision -cont plavix -Echo with EF of 55 to 60% with normal LV systolic function and moderate MR, no comment on diastolic dysfunction -10/25: Discussed with cardiology, heart cath tomorrow. Lasix held with kidney function and impending cath and patient have received some gentle hydration -10/26: Patient went for heart cath and had 3 stents placed, will be on Plavix and Eliquis and beta-robinson -10/27: Doing well today, chest pain-free, continue Eliquis, Plavix, beta-robinson #History of coronary artery disease -With known history of coronary artery disease with PCI and stenting of LAD in May 2016 and stent of OM1 in October 2021 -Cont ranexa, BB, fenofibrate -10/25: Decrease beta-robinson due to intermittently low heart rates -10/26: See above #CKD stage IIIb -Slightly up from baseline, holding Lasix, gentle hydration after midnight in the event patient has heart cath, does not presently have CLARA but given bump in creatinine and pending heart cath will hold losartan -10/25: Improved slightly same -10/26: Slight increase today, will manage fluid balance carefully, receiving some fluids post-cath, will check a.m. creatinine and may resume Lasix at that time depending on respiratory and kidney function -10/27: Kidney function improved again today #pafib -Convert to oral AC once heart cath decision -Continue BB -10/25: Remains on heparin drip with heart cath pending, beta-robinson decreased due to low heart rates -10/26: Transitioned back to Eliquis #Type 2 diabetes mellitus -Glucose checks and sliding scale insulin -Continue glargine and Humulin but glucose is under tighter control the necessary while hospitalized especially given intermittent n.p.o. status will decrease glargine and insulin U-500 -Most recent A1c 6.4 on 09/06/2022 -10/26: Glucose very well controlled, can always decrease insulin dosing further however has not been hypoglycemic at this time -10/27: We will continue with present management #Hyperparathyroidism with hypercalcemia -Calcium 11.5 today, continue Cinacalcet -We will check PTH, vitamin D, Phos in the a.m. -10/25: 11.1 after some gentle hydration, PTH 197, vitamin D is 87.9 with a Phos of 2.6, continue Cinacalcet -10/26: Calcium 10.9 -10/27: Calcium 10.5, continue current management #Right olecranon bursitis ? Managed with anti-inflammatory medications as well as steroid and tramadol forpain plans for patient to follow-up with orthopedic surgeon Dr. Gary as outpatient #Anxiety and depression -Continue Paxil #FAVIAN -CPAP nightly #DVT ppx: Bryant Velez MD Time spent in the patient's overall evaluation,decision-making process, review of diagnostic data, adjustment of management, discussion with other providers, nursing nursing and ancillary staff involved in patient's care documentation, 40minutes Charges/Coding Visit Charges Inpatient E&M: 35481 Subs Hosp L2 10/27/22 0933 <Electronically signed by Kassidy Velez MD> Cosigner Signature (if applicable): CC: ~ Signed [facility] Work Phone: 1(489) 778-246707-19-2023 Progress note Author Kassidy Velez [facility] October 26, 2022 1:36pm Note Date/Time October 26, 2022 1:36 pm [facility] Medical Records Department [address] [place] [address] Progress Note - Hospitalist 10/26/22 1332 MR#: [id number] Acct: [id number] Name: SHADE TEIXEIRA Rep #:[id number] : 1955 66 From: Kassidy Velez MD PCP: Dr. Mery Raymond MD Status:A DM IN Location: [place] [address] Reason for Visit Reason for Visit: Diagnoses Type 2 diabetes mellitus with hyperglycemia (10/21/22) Pure hyperglyceridemia (10/21/22) Hypercalcemia (10/21/22) Atherosclerotic heart disease of [place] coronary artery without angina pectoris (10/21/22) Unspecified atrial fibrillation (10/21/22) Other chest pain (10/21/22) longterm (current) use of insulin (10/21/22) Presence of coronary angioplasty implant and graft (10/21/22) Subjective Subjective Patient seen status post heart cath, no chest pain or shortness of breath. No acute complaints Objective Data Objective Data Vital Signs: Vital Signs Temp Pulse Resp BP Pulse Ox O2 Del Method O2 Flow Rate 98.1 F 70 24 H 136/79 H 94 Room Air 2 10/26/22 13:18 10/26/22 13:18 10/26/22 13:18 10/26/22 13:18 10/26/22 13:18 10/26/22 13:18 10/26/22 06:19 Oxygen Flow Rate (L/min) 2 Oxygen Delivery Method Room Air Weight: 118.2 kg Body Mass Index (BMI) 37.3 Intake & Output: Intake and Output for Last 24 Hours 10/24/22 10/25/22 10/26/22 23:59 23:59 23:59 Intake Total 2415.11 / 2415.11 1943.95 / 1943.95 408.54 / 408.54 Output Total 2860 / 2860 1475 / 1475 900 / 900 Balance -444.89 / -444.89 468.95 / 468.95 -491.46 / -491.46 Lab / Micro Data 10/26/22 06:34 10/26/22 06:34 Labs: Laboratory Results - last 24 hr 10/25/22 16:14: POC Glucose 167 H 10/25/22 17:30: APTT 66.7 H 10/25/22 21:58: POC Glucose 151 H 10/26/22 00:30: APTT 52.6 H 10/26/22 06:27: POC Glucose 103 10/26/22 06:34: WBC 7.3, RBC 4.36 L, Hgb 12.6 L, Hct 39.8 L, MCV 91.3, MCH 28.9,MCHC 31.7 L, RDW Std Deviation 46.5 H, RDW Coeff of Thao 13.7, Plt Count 361, MPV8.9, Immature Gran % (Auto) 1.200 H, Neut % (Auto) 73.4 H, Lymph % (Auto) 9.7 L,Alpine % (Auto) 12.8 H, Eos % (Auto) 1.9, Baso % (Auto) 1.0, Absolute Neuts (auto)5.4, Absolute Lymphs (auto) 0.71 L, Nucleated RBC % 0, APTT 84.3 H, Sodium 137, Potassium 4.1, Chloride 106, Carbon Dioxide 26.0, Anion Gap 5, BUN 30 H, Creatinine 1.77 H, Estim Creat Clear Calc 42.96, Est GFR (MDRD) Af Amer 50 L, Est GFR (MDRD) Non-Af 41 L, BUN/Creatinine Ratio 16.9, Glucose 115 H, Calcium 10.9 H 10/26/22 08:33: POC Glucose 116 H 10/26/22 10:20: Activated Clotting Time 275 H 10/26/22 11:05: Activated Clotting Time 251 H 10/26/22 11:52: POC Glucose 100 10/26/22 13:03: APTT 139.1 H* Physical Exam Narrative General: Alert, oriented, no apparent distress HEENT: Atraumatic, normocephalic Eyes: Anicteric, normal conjunctiva, extraocular movements grossly intact Neck: Supple Respiratory: normal respiratory effort Cardiovascular: Regular rate GI: Soft, nontender, nondistended Extremities: 1+ lower extremity edema Musculoskeletal: Moving all extremities Neuro: No overt focal neurological deficits Skin: No rashes appreciated Psych: Cooperative Assessment & Plan Assessment/Plan (1) Atherosclerosis of coronary artery of [place] heart without angina pectoris: QUALIFIERS: Coronary Disease-Associated Artery/Lesion type: nativeartery Qualified Code(s): I25.10 - Atherosclerotic heart disease of [place] coronary artery without angina pectoris (2) Hypertriglyceridemia: (3) Diabetes: QUALIFIERS: Diabetes mellitus type: type 2 Diabetes mellitus shelter insulin use: with termite control technician use Diabetes mellitus complication status: with hyperglycemia Qualified Code(s): E11.65 - Type 2 diabetes mellitus with hyperglycemia; Z79.4 - 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 (current) use of insulin (4) Hypercalcemia: PLAN: Plan #Chest discomfort?determined to be unstable angina -With known history of coronary artery disease with PCI and stenting of LAD in May 2016 and stent of OM1 in October 2021 -Patient presently chest pain-free but did have abnormal nuclear stress test, ideally will undergo cardiac cath before discharge but can be scheduled on a close outpatient basis if this is not feasible -Continue heparin drip, patient will require chronic anticoagulation with atrialfibrillation, will switch to oral AC pending Decision -cont plavix -Echo with EF of 55 to 60% with normal LV systolic function and moderate MR, no comment on diastolic dysfunction -10/25: Discussed with cardiology, heart cath tomorrow. Lasix held with kidney function and impending cath and patient have received some gentle hydration -10/26: Patient went for heart cath and had 3 stents placed, will be on Plavix and Eliquis and beta-robinson #History of coronary artery disease -With known history of coronary artery disease with PCI and stenting of LAD in May 2016 and stent of OM1 in October 2021 -Cont ranexa, BB, fenofibrate -10/25: Decrease beta-robinson due to intermittently low heart rates -10/26: See above #CKD stage IIIb -Slightly up from baseline, holding Lasix, gentle hydration after midnight in the event patient has heart cath, does not presently have CLARA but given bump in creatinine and pending heart cath will hold losartan -10/25: Improved slightly same -10/26: Slight increase today, will manage fluid balance carefully, receiving some fluids post-cath, will check a.m. creatinine and may resume Lasix at that time depending on respiratory and kidney function #pafib -Convert to oral AC once heart cath decision -Continue BB -10/25: Remains on heparin drip with heart cath pending, beta-robinson decreased due to low heart rates -10/26: Transitioned back to Bryant #Type 2 diabetes mellitus -Glucose checks and sliding scale insulin -Continue glargine and Humulin but glucose is under tighter control the necessary while hospitalized especially given intermittent n.p.o. status will decrease glargine and insulin U-500 -Most recent A1c 6.4 on 09/06/2022 -10/26: Glucose very well controlled, can always decrease insulin dosing further however has not been hypoglycemic at this time #Hyperparathyroidism with hypercalcemia -Calcium 11.5 today, continue Cinacalcet -We will check PTH, vitamin D, Phos in the a.m. -10/25: 11.1 after some gentle hydration, PTH 197, vitamin D is 87.9 with a Phos of 2.6, continue Cinacalcet -10/26: Calcium 10.9 #Right olecranon bursitis ? Managed with anti-inflammatory medications as well as steroid and tramadol forpain plans for patient to follow-up with orthopedic surgeon Dr. Gary as outpatient #Anxiety and depression -Continue Paxil #FAVIAN -CPAP nightly #DVT ppx: Bryant Velez MD Time spent in the patient's overall evaluation,decision-making process, review of diagnostic data, adjustment of management, discussion with other providers, nursing nursing and ancillary staff involved in patient's care documentation, 40minutes Charges/Coding Visit Charges Inpatient E&M: 70160 Subs Hosp L2 10/26/22 1336 <Electronically signed by Kassidy Velez MD> Cosigner Signature (if applicable): CC: ~ Signed [facility] Work Phone: 1([phone]) 177-952007-18-2023 Progress note Author Kassidy Velez [facility] October 25, 2022 12:03pm Note Date/Time October 25, 2022 12:0 3pm [facility] Medical Records Department [address] [place] [address] Progress Note - Hospitalist 10/25/22 1155 MR#: [id number] Acct: [id number] Name: SHADE TEIXEIRA Rep #:[id number] : 1955 66 From: Kassidy Velez MD PCP: Dr. Mery Raymond MD Status:A DM IN Location: [place] [address]- Reason for Visit Reason for Visit: Diagnoses Type 2 diabetes mellitus with hyperglycemia (10/21/22) Pure hyperglyceridemia (10/21/22) Hypercalcemia (10/21/22) Atherosclerotic heart disease of [place] coronary artery without angina pectoris (10/21/22) Unspecified atrial fibrillation (10/21/22) Other chest pain (10/21/22) 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 (current) use of insulin (10/21/22) Presence of coronary angioplasty implant and graft (10/21/22) Subjective Subjective Denies CP or SOB Objective Data Objective Data Vital Signs: Vital Signs Temp Pulse Resp BP Pulse Ox O2 Del Method O2 Flow Rate 97.8 F 66 17 149/90 H 98 Room Air 2 10/25/22 03:10 10/25/22 06:33 10/25/22 03:10 10/25/22 06:33 10/25/22 08:00 10/25/22 08:11 10/25/22 03:10 Oxygen Flow Rate (L/min) 2 Oxygen Delivery Method Room Air Weight: 117.2 kg Body Mass Index (BMI) 37.0 Intake & Output: Intake and Output for Last 24 Hours 10/23/22 10/24/22 10/25/22 23:59 23:59 23:59 Intake Total 1656.62 / 1896.62 2415.11 / 2415.11 235.77 / 235.77 Output Total 1250 / 1850 2860 / 2860 450 / 450 Balance 406.62 / 46.62 -444.89 / -444.89 -214.23 / -214.23 Lab / Micro Data 10/25/22 08:50 10/25/22 08:50 Labs: Laboratory Results - last 24 hr 10/24/22 11:25: POC Glucose 115 H 10/24/22 11:40: POC Glucose 121 H 10/24/22 13:24: APTT 28.4 10/24/22 16:46: POC Glucose 176 H 10/24/22 18:31: POC Glucose 235 H 10/24/22 19:55: APTT 40.8 H 10/24/22 21:28: POC Glucose 217 H 10/25/22 01:56: APTT 52.6 H 10/25/22 06:27: POC Glucose 139 H 10/25/22 08:50: WBC 7.5, RBC 4.46 L, Hgb 12.9 L, Hct 41.5, MCV 93.0, MCH 28.9, MCHC 31.1 L, RDW Std Deviation 47.1 H, RDW Coeff of Thao 13.8, Plt Count 415, MPV9.3, Immature Gran % (Auto) 0.900, Neut % (Auto) 73.5 H, Lymph % (Auto) 8.6 L, Alpine % (Auto) 14.0 H, Eos % (Auto) 2.3, Baso % (Auto) 0.7, Absolute Neuts (auto)5.5, Absolute Lymphs (auto) 0.64 L, Nucleated RBC % 0, APTT 34.4, Sodium 137, Potassium 4.7, Chloride 108 H, Carbon Dioxide 26.0, Anion Gap 3 L, BUN 32 H, Creatinine 1.76 H, Estim Creat Clear Calc 43.21, Est GFR (MDRD) Af Amer 50 L, Est GFR (MDRD) Non-Af 41 L, BUN/Creatinine Ratio 18.2, Glucose 152 H, Calcium 11.1 H, Phosphorus 2.6, Magnesium 2.3, Vitamin D 25-Hydroxy 87.9, PTH Intact 197.7 H 10/25/22 11:23: POC Glucose 152 H Physical Exam Narrative General: Alert, oriented, no apparent distress HEENT: Atraumatic, normocephalic Eyes: Anicteric, normal conjunctiva, extraocular movements grossly intact Neck: Supple Respiratory: normal respiratory effort Cardiovascular: Regular rate GI: Soft, nontender, nondistended Extremities: 1+ lower extremity edema Musculoskeletal: Moving all extremities Neuro: No overt focal neurological deficits Skin: No rashes appreciated Psych: Cooperative Assessment & Plan Assessment/Plan (1) Atherosclerosis of coronary artery of [place] heart without angina pectoris: QUALIFIERS: Coronary Disease-Associated Artery/Lesion type: nativeartery Qualified Code(s): I25.10 - Atherosclerotic heart disease of [place] coronary artery without angina pectoris (2) Hypertriglyceridemia: (3) Diabetes: QUALIFIERS: Diabetes mellitus type: type 2 Diabetes mellitus shelter insulin use: with mcc use Diabetes mellitus complication status: with hyperglycemia Qualified Code(s): E11.65 - Type 2 diabetes mellitus with hyperglycemia; Z79.4 - 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 (current) use of insulin (4) Hypercalcemia: PLAN: Plan #Chest discomfort -With known history of coronary artery disease with PCI and stenting of LAD in May 2016 and stent of OM1 in October 2021 -Patient presently chest pain-free but did have abnormal nuclear stress test, ideally will undergo cardiac cath before discharge but can be scheduled on a close outpatient basis if this is not feasible -Continue heparin drip, patient will require chronic anticoagulation with atrialfibrillation, will switch to oral AC pending Decision -cont plavix -Echo with EF of 55 to 60% with normal LV systolic function and moderate MR, no comment on diastolic dysfunction -10/25: Discussed with cardiology, heart cath tomorrow. Lasix held with kidney function and impending cath and patient have received some gentle hydration #History of coronary artery disease -With known history of coronary artery disease with PCI and stenting of LAD in May 2016 and stent of OM1 in October 2021 -Cont ranexa, BB, fenofibrate -10/25: Decrease beta-robinson due to intermittently low heart rates #CKD stage IIIb -Slightly up from baseline, holding Lasix, gentle hydration after midnight in the event patient has heart cath, does not presently have CLARA but given bump in creatinine and pending heart cath will hold losartan -10/25: Improved slightly same #pafib -Convert to oral AC once heart cath decision -Continue BB -10/25: Remains on heparin drip with heart cath pending, beta-robinson decreased due to low heart rates #Type 2 diabetes mellitus -Glucose checks and sliding scale insulin -Continue glargine and Humulin but glucose is under tighter control the necessary while hospitalized especially given intermittent n.p.o. status will decrease glargine and insulin U-500 -Most recent A1c 6.4 on 09/06/2022 #Hyperparathyroidism with hypercalcemia -Calcium 11.5 today, continue Cinacalcet -We will check PTH, vitamin D, Phos in the a.m. -10/25: 11.1 after some gentle hydration, PTH 197, vitamin D is 87.9 with a Phos of 2.6, continue Cinacalcet #Right olecranon bursitis ? Managed with anti-inflammatory medications as well as steroid and tramadol forpain plans for patient to follow-up with orthopedic surgeon Dr. Gary as outpatient #Anxiety and depression -Continue Paxil #FAVIAN -CPAP nightly #DVT ppx: On heparin drip Kassidy Velez MD Time spent in the patient's overall evaluation,decision-making process, review of diagnostic data, adjustment of management, discussion with other providers, nursing nursing and ancillary staff involved in patient's care documentation, 51minutes Charges/Coding Visit Charges Inpatient E&M: 77573 Subs Hosp L3 10/25/22 1203 <Electronically signed by Kassidy Velez MD> Cosigner Signature (if applicable): CC: ~ Signed [facility] Work Phone: 1(255) 862-829007-17-2023 Progress note Author Kassidy Velez [facility] October 24, 2022 2:06pm Note Date/Time October 24, 2022 1:41 pm [facility] Medical Records Department [address] [place] [id number] Progress Note - Hospitalist 10/24/22 1340 MR#: [id number] Acct: [id number] Name: RAHULSHADE A Rep #:[id number] : 1955 66 From: Kassidy Velez MD PCP: Dr. Mery Raymond MD Status:A DM IN Location: [place] [address] Reason for Visit Reason for Visit: Diagnoses Type 2 diabetes mellitus with hyperglycemia (10/21/22) Pure hyperglyceridemia (10/21/22) Hypercalcemia (10/21/22) Atherosclerotic heart disease of [place] coronary artery without angina pectoris (10/21/22) Unspecified atrial fibrillation (10/21/22) Other chest pain (10/21/22) longterm (current) use of insulin (10/21/22) Presence of coronary angioplasty implant and graft (10/21/22) Subjective Subjective Patient not having pain at present, does feel legs are somewhat swollen, advisedto elevate Objective Data Objective Data Vital Signs: Vital Signs Temp Pulse Resp BP Pulse Ox O2 Del Method O2 Flow Rate 97.0 F L 73 16 146/97 H 95 Room Air 2 10/24/22 08:21 10/24/22 08:21 10/24/22 08:21 10/24/22 08:21 10/24/22 08:21 10/24/22 08:28 10/21/22 07:49 Oxygen Flow Rate (L/min) 2 Oxygen Delivery Method Room Air Weight: 117 kg Body Mass Index (BMI) 37.0 Intake & Output: Intake and Output for Last 24 Hours 10/22/22 10/23/22 10/24/22 23:59 23:59 23:59 Intake Total 450 / 690 1656.62 / 1896.62 1474.06 / 1474.06 Output Total 1650 / 2450 1250 / 1850 1650 / 1650 Balance -1200 / -1760 406.62 / 46.62 -175.94 / -175.94 Lab / Micro Data 10/22/22 20:15 10/24/22 09:20 Labs: Laboratory Results - last 24 hr 10/23/22 16:07: POC Glucose 156 H 10/23/22 19:13: APTT 55.2 H 10/23/22 21:10: POC Glucose 142 H 10/24/22 01:26: APTT 54.9 H 10/24/22 06:47: POC Glucose 116 H 10/24/22 07:43: APTT 62.1 H 10/24/22 09:20: Sodium 135 L, Potassium 4.8, Chloride 106, Carbon Dioxide 23.0, Anion Gap 6, BUN 36 H, Creatinine 1.82 H, Estim Creat Clear Calc 41.78, Est GFR (MDRD) Af Amer 48 L, Est GFR (MDRD) Non-Af 40 L, BUN/Creatinine Ratio 19.8, Glucose 119 H, Calcium 11.5 H 10/24/22 11:25: POC Glucose 115 H 10/24/22 11:40: POC Glucose 121 H Physical Exam Narrative General: Alert, oriented, no apparent distress HEENT: Atraumatic, normocephalic Eyes: Anicteric, normal conjunctiva, extraocular movements grossly intact Neck: Supple Respiratory: normal respiratory effort Cardiovascular: Regular rate GI: Soft, nontender, nondistended Extremities: 1+ lower extremity edema Musculoskeletal: Moving all extremities Neuro: No overt focal neurological deficits Skin: No rashes appreciated Psych: Cooperative Assessment & Plan Assessment/Plan (1) Atherosclerosis of coronary artery of [place] heart without angina pectoris: QUALIFIERS: Coronary Disease-Associated Artery/Lesion type: nativeartery Qualified Code(s): I25.10 - Atherosclerotic heart disease of [place] coronary artery without angina pectoris (2) Hypertriglyceridemia: (3) Diabetes: QUALIFIERS: Diabetes mellitus type: type 2 Diabetes mellitus shelter insulin use: with mcc use Diabetes mellitus complication status: with hyperglycemia Qualified Code(s): E11.65 - Type 2 diabetes mellitus with hyperglycemia; Z79.4 - 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 (current) use of insulin (4) Hypercalcemia: PLAN: Plan #Chest discomfort -With known history of coronary artery disease with PCI and stenting of LAD in May 2016 and stent of OM1 in October 2021 -Patient presently chest pain-free but did have abnormal nuclear stress test, ideally will undergo cardiac cath before discharge but can be scheduled on a close outpatient basis if this is not feasible -Continue heparin drip, patient will require chronic anticoagulation with atrialfibrillation, will switch to oral AC pending Decision -cont plavix -Echo with EF of 55 to 60% with normal LV systolic function and moderate MR, no comment on diastolic dysfunction #History of coronary artery disease -With known history of coronary artery disease with PCI and stenting of LAD in May 2016 and stent of OM1 in October 2021 -Cont ranexa, BB, fenofibrate #CKD stage IIIb -Slightly up from baseline, holding Lasix, gentle hydration after midnight in the event patient has heart cath, does not presently have CLARA but given bump in creatinine and pending heart cath will hold losartan #pafib -Convert to oral AC once heart cath decision -Continue BB #Type 2 diabetes mellitus -Glucose checks and sliding scale insulin -Continue glargine and Humulin but glucose is under tighter control the necessary while hospitalized especially given intermittent n.p.o. status will decrease glargine and insulin U-500 -Most recent A1c 6.4 on 09/06/2022 #Hyperparathyroidism with hypercalcemia -Calcium 11.5 today, continue Cinacalcet -We will check PTH, vitamin D, Phos in the a.m. #Right olecranon bursitis ? Managed with anti-inflammatory medications as well as steroid and tramadol forpain plans for patient to follow-up with orthopedic surgeon Dr. Gary as outpatient #Anxiety and depression -Continue Paxil #FAVIAN -CPAP nightly #DVT ppx: On heparin drip Kassidy Velez MD Time spent in the patient's overall evaluation,decision-making process, review of diagnostic data, adjustment of management, discussion with other providers, nursing nursing and ancillary staff involved in patient's care documentation, 51minutes Charges/Coding Visit Charges Inpatient E&M: 47292 Subs Hosp L3 10/24/22 1406 <Electronically signed by Kassidy Velez MD> Cosigner Signature (if applicable): CC: ~ Signed [facility] Work Phone: [phone]) 611-611407-16-2023 Progress note Author Ty Rocha [facility] October 23, 2022 8:54pm Note Date/Time October 23, 2022 8:54 pm [facility] Medical Records Department [address] [place] [address] Progress Note - Cardiology 10/23/222045 MR#: [id number] Acct: [id number] Name: SHADE TEIXEIRA Rep #:[id number] : 1955 66 From: Ty Rocha MD PCP: Dr. Mery Raymond MD Status:A DM IN Location: [place] [address] Subjective Subjective No events from last night No symptoms reported today. Objective Data Vital Signs: Vital Signs Temp Pulse Resp BP Pulse Ox O2 Del Method O2 Flow Rate 98.0 F 78 18 133/95 H 92 Room Air 2 10/23/22 15:15 10/23/22 15:15 10/23/22 15:15 10/23/22 15:15 10/23/22 15:15 10/23/22 15:15 10/21/22 07:49 Oxygen Flow Rate (L/min) 2 Oxygen Delivery Method Room Air Weight: 257 lb 4.471 oz Body Mass Index (BMI) 36.9 Intake & Output: Intake and Output for Last 24 Hours 10/21/22 10/22/22 10/23/22 23:59 23:59 23:59 Intake Total 1800 / 1800 450 / 690 1503.35 / 1503.35 Output Total 1999 / 1999 1650 / 2450 1250 / 1250 Balance -200 / -200 -1200 / -1760 253.35 / 253.35 Lab / Micro Data 10/22/22 20:15 10/21/22 05:04 Labs: Laboratory Results - last 24 hr 10/22/22 20:15: WBC 7.3, RBC 4.45 L, Hgb 12.8 L, Hct 40.9, MCV 91.9, MCH 28.8, MCHC 31.3 L, RDW Std Deviation 45.8 H, RDW Coeff of Thao 13.4, Plt Count 415, MPV9.6, Immature Gran % (Auto) 0.800, Neut % (Auto) 72.4 H, Lymph % (Auto) 9.5 L, Alpine % (Auto) 14.2 H, Eos % (Auto) 2.3, Baso % (Auto) 0.8, Absolute Neuts (auto)5.3, Absolute Lymphs (auto) 0.69 L, Nucleated RBC % 0, PT 16.4 H, INR 1.3, APTT 30.4 10/22/22 21:57: POC Glucose 141 H 10/23/22 04:16: APTT 48.1 H 10/23/22 08:01: POC Glucose 183 H 10/23/22 11:01: POC Glucose 154 H 10/23/22 11:15: APTT 38.2 H 10/23/22 16:07: POC Glucose 156 H 10/23/22 19:13: APTT 55.2 H Cardiology Labs/Tests 10/22/22 20:15: WBC 7.3, RBC 4.45 L, Hgb 12.8 L, Hct 40.9, MCV 91.9, MCH 28.8, MCHC 31.3 L, Plt Count 415, MPV 9.6, Immature Gran % (Auto) 0.800, Neut % (Auto)72.4 H, Lymph % (Auto) 9.5 L, Alpine % (Auto) 14.2 H, Eos % (Auto) 2.3, Baso % (Auto) 0.8, Absolute Neuts (auto) 5.3, Nucleated RBC % 0, PT 16.4 H, INR 1.3, APTT 30.4 10/23/22 04:16: APTT 48.1 H 10/23/22 11:15: APTT 38.2 H 10/23/22 19:13: APTT 55.2 H Rhythm: EKG: ECHO: Stress Test: Cardiac Cath: PCI: CT Surgery: Holter monitor: EPS: PPM: CXR: Chest CT Scan: Physical Exam Cardio Cardio Narrative: Cardiac exam S1-S2 regular Chest exam clear to auscultation bilateral Examination lower extremity lower extremity edema. Assessment & Plan Assessment/Plan (1) Atherosclerosis of coronary artery of [place] heart without angina pectoris: QUALIFIERS: Coronary Disease-Associated Artery/Lesion type: nativeartery Qualified Code(s): I25.10 - Atherosclerotic heart disease of [place] coronary artery without angina pectoris (2) Hypertriglyceridemia: (3) Diabetes: QUALIFIERS: Diabetes mellitus type: type 2 Diabetes mellitus shelter insulin use: with termite control technician use Diabetes mellitus complication status: with hyperglycemia Qualified Code(s): E11.65 - Type 2 diabetes mellitus with hyperglycemia; Z79.4 - 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 (current) use of insulin (4) Hypercalcemia: PLAN: Plan 66-year-old patient With known history of CAD Had a PCI and stent of LAD in May 2016 And in October 2021 he had a PCI and stent of OM1 Also patient has paroxysmal atrial fibrillation has been on anticoagulation withapixaban which is on hold and currently patient is on heparin Hyperparathyroidism, hypertension Diabetes mellitus, chronic kidney disease stage III Dyslipidemia. And also had history of FAVIAN and has been on CPAP. His baseline creatinine is 1.68 Patient has symptoms of chest pain retrosternal Evaluated by nuclear stress test Which is abnormal Currently been on medical treatment stable clinically Cardiac care plan recommendations; Patient with Multiple medical comorbidities With CAD prior PCI stent of LAD and 6 circumflex/OM1 Presenting with symptoms of chest pain Abnormal nuclear stress test With evidence of reversible myocardial ischemia, anterior inferior and lateral Patient scheduled to undergo cardiac catheterization To minimize the use of contrast due to risk of contrast-induced nephropathy. Patient will be hydrated over the night with IV fluid We will repeat the BMP level in the morning. Patient will undergo cardiac catheterization by Dr. Alex 10/23/222053 <Electronically signed by Ty Rocha MD> Cosigner Signature (if applicable): CC: ~ Signed [facility] Work Phone: [phone]) 583-781807-16-2023 Progress note Author Maeve Coreas [facility] October 23, 2022 9:54am Note Date/Time October 23, 2022 7:44 am [facility] Medical Records Department [address] [place] [address] Progress Note - Hospitalist 10/23/22 0742 MR#: [id number] Acct: [id number] Name: SHADE TEIXEIRA Rep #:[id number] : 1955 66 From: Maeve Coreas MD PCP: Dr. Mery Raymond MD Status:A DM IN Location: [place] [address]- 1 Reason for Visit Reason for Visit: Diagnoses Type 2 diabetes mellitus with hyperglycemia (10/21/22) Atherosclerotic heart disease of [place] coronary artery without angina pectoris (10/21/22) Unspecified atrial fibrillation (10/21/22) Other chest pain (10/21/22) longterm (current) use of insulin (10/21/22) Presence of coronary angioplasty implant and graft (10/21/22) Subjective Subjective Patient is seen plan is for patient to undergo left heart catheterization on 10/24/2022. On apixaban held started on heparin Objective Data Objective Data Vital Signs: Vital Signs Temp Pulse Resp BP Pulse Ox O2 Del Method O2 Flow Rate 97.8 F 73 16 154/92 H 95 Room Air 2 10/23/22 03:41 10/23/22 03:41 10/23/22 03:41 10/23/22 03:41 10/23/22 03:41 10/23/22 04:38 10/21/22 07:49 Oxygen Flow Rate (L/min) 2 Oxygen Delivery Method Room Air Weight: 121.1 kg Body Mass Index (BMI) 38.2 Intake & Output: Intake and Output for Last 24 Hours 10/21/22 10/22/22 10/23/22 23:59 23:59 23:59 Intake Total 1800 / 1800 450 / 690 473.6 / 473.6 Output Total 1999 / 1999 1650 / 2450 1250 / 1250 Balance -200 / -200 -1200 / -1760 -776.4 / -776.4 Lab / Micro Data 10/22/22 20:15 10/21/22 05:04 Labs: Laboratory Results - last 24 hr 10/22/22 06:04: POC Glucose 207 H 10/22/22 11:14: POC Glucose 223 H 10/22/22 16:27: POC Glucose 198 H 10/22/22 20:15: WBC 7.3, RBC 4.45 L, Hgb 12.8 L, Hct 40.9, MCV 91.9, MCH 28.8, MCHC 31.3 L, RDW Std Deviation 45.8 H, RDW Coeff of Thao 13.4, Plt Count 415, MPV9.6, Immature Gran % (Auto) 0.800, Neut % (Auto) 72.4 H, Lymph % (Auto) 9.5 L, Alpine % (Auto) 14.2 H, Eos % (Auto) 2.3, Baso % (Auto) 0.8, Absolute Neuts (auto)5.3, Absolute Lymphs (auto) 0.69 L, Nucleated RBC % 0, PT 16.4 H, INR 1.3, APTT 30.4 10/22/22 21:57: POC Glucose 141 H 10/23/22 04:16: APTT 48.1 H Physical Exam Narrative GENERAL: cooperative HEENT: Atraumatic; normocephalic EYES; Anicteric, Normal Conjunctiva NECK; supple, normal thyroid, RESPIRATORY: Diminished to auscultation CARDIOVASCULAR: Regular S1 S2, GI: soft, normoactive bowel sounds, : No Renal angle tenderness; EXTREMITIES: Lateral lower extremity stasis dermatitis MUSCULOSKELETAL: no muscle wasting NEURO: Awake; no lateralizing signs. SKIN: As described above PSYCH; Flat affect Assessment & Plan Assessment/Plan (1) Atrial fibrillation: PLAN: Plan Patient is a 66-year-old gentleman with multiple comorbidities admitted with chest discomfort 1. Chest discomfort ? Admitted to monitored bed, subsequent serial cardiac enzymes ordered. Given patient's significant past cardiac history ordered nuclear stress test to rule out ischemia ? 10/22/2022;Underwent nuclear stress test which demonstrated demonstrate reduceduptake of sestamibi in the inferior and post stress images demonstrate moderate reduced uptake in the anterior, lateral and inferior myocardium Consistent with reversible myocardial ischemia. Reduced tracer uptake in the inferior myocardium consistent with prior inferior OK. With inferior cisco-infarct ischemia and anterior and lateral reversible myocardial ischemia. Consult subsequently placed to cardiology ? 10/23/2022; plan is for patient to undergo left heart catheterization on 10/24/2022. On apixaban held started on heparin 2. Coronary artery disease ? With history of PCI LAD PTCA/DANIEL 2016 and OM1 PCI 10/2021, 3. Paroxysmal A-fib ? Controlled on systemic anticoagulation with apixaban ? 10/23/2022 apixaban held currently on heparin 4. Right olecranon bursitis ? Managed with anti-inflammatory medications as well as steroid and tramadol forpain plans for patient to follow-up with orthopedic surgeon Dr. Gary as outpatient 5. Hyperparathyroidism with history of hypercalcemia ? Patient is on Cinacalcet 6. Hypertension - Blood pressure controlled, home medications continued with dose adjustment as needed 7. Diabetes mellitus type II -patient's oral hypoglycemics held. Placed on long acting insulin, Accu-Cheks a.c. and at bedtime and covered with sliding scale insulin 8. Chronic kidney disease stage III ? Kidney function at baseline 9. Depression with anxiety ? Patient is on SSRI regimen?Paxil did continue 10. Dyslipidemia ? Patient is on fenofibrate 11. Class II obesity with BMI of 38 point ? Complicating care weight loss advised 12. Obstructive sleep apnea ? On CPAP at night 13. DVT prophylaxis ? On apixaban Time spent in the patient's overall evaluation,decision-making process, review of diagnostic data, adjustment of management, discussion with other providers, nursing nursing and ancillary staff involved in patient's care documentation, 35 minutes Charges/Coding Visit Charges Inpatient E&M: 65874 Subs Hosp L2 10/23/22 0954 <Electronically signed by Maeve Coreas MD> Cosigner Signature (if applicable): CC: ~ Signed [facility] Work Phone: [phone]) 763-961807-15-2023 Consult note Author Ty Rocha [facility] October 22, 2022 2:35pm Note Date/Time October 22, 2022 2:35 pm [facility] Medical Records Department [address] [place] [id number] Consultation - Cardiology 10/22/22 1426 MR#: [id number] Acct: [id number] Name: TEIXEIRASHADE Ross Praveen Rep #:[id number] : 1955 66 From: Ty Rocha MD PCP: Dr. Mery Raymond MD Status:A DM IN Location: [facility] [id number] Assessment & Plan Assessment/Plan (1) History of coronary artery stent placement: (2) Atherosclerosis of coronary artery of [place] heart without angina pectoris: QUALIFIERS: Coronary Disease-Associated Artery/Lesion type: nativeartery Qualified Code(s): I25.10 - Atherosclerotic heart disease of [place] coronary artery without angina pectoris (3) Diabetes: QUALIFIERS: Diabetes mellitus type: type 2 Diabetes mellitus shelter insulin use: with mcc use Diabetes mellitus complication status: with hyperglycemia Qualified Code(s): E11.65 - Type 2 diabetes mellitus with hyperglycemia; Z79.4 - 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 (current) use of insulin (4) Chest discomfort: PLAN: Plan 66-year-old patient Seen and evaluated today at bedside Cardiac consult requested as she has abnormal Lexiscan sestamibi With reversible myocardial ischemia in the anterior, lateral and inferior regions Overall LV function is preserved. Patient admitted to symptoms of chest pain on exertion retrosternal Also he had a history of atrial fibrillation Multiple other medical comorbidities CAD with the stent in the left anterior descending artery that was done in 2016 using [employer] drug-eluting stent which is 3 x 16 mm Subsequently he had further episode of chest pain and underwent cardiac catheterization and stent of the OM1 in October 29 using drug-eluting stent. Patient has been on anticoagulation with Eliquis for A-fib Heidrick controlled ventricular rate He been on maximal therapy for angina including beta-robinson metoprolol, Ranexa 1000 mg twice daily, losartan, metoprolol I reviewed all his current medication. Cardiac care plan recommendations; Patient has abnormal Lexiscan sestamibi with reversible ischemia noted in the LAD and RCA distribution. With anterior, lateral inferior reversible myocardial ischemia Overall LV function is preserved Also noted his renal function is impaired with elevated creatinine As the patient had a known coronary artery stent to the LAD OM1 and having symptoms of chest pain With abnormal Lexiscan sestamibi I hold the apixaban and start the patient on heparin Also patient has abnormal renal function I requested nephrology consultation The creatinine is 1.68 We will start hydration for this patient Patient is scheduled for cardiac cath on Monday. HPI Consult Data Date of Consult: 10/22/22 HPI Narrative Reason for Consultation: CAD/prior PCI stent LAD/OM/abnormal stress test HPI Narrative: SHADE TEIXEIRA, is a 66 M who presents [facility] Medical History (Updated 10/21/22 @ 02:[address] Purvi Jensen MD) Acquired left ventricular hypertrophy Adult failure to thrive Anemia Anxiety and depression Atherosclerosis of coronary artery of [place] heart without angina pectoris Chronic hypoxemic respiratory failure Chronic pain of both knees Diabetes Essential (primary) hypertension History of DVT (deep vein thrombosis) History of pulmonary embolism Hypercalcemia Hyperparathyroidism Hypertriglyceridemia Morbid obesity with BMI of 40.0-44.9, adult FAVIAN (obstructive sleep apnea) Osteoarthritis Primary hyperparathyroidism Pure hypercholesterolemia Seizures Type 2 diabetes mellitus Home Medications Handicap Placard #1 ea 04/08/20 [Rx Last Taken Unknown] flash glucose scanning reader (FreeStyle Tiffanie 2 Riparius) #1 ea 02/16/21 [Rx Last Taken Unknown] flash glucose sensor (FreeStyle Tiffanie 2 Sensor kit) #2 ea 02/16/21 [Rx Last Taken Unknown] metformin 1,000 mg tablet 1,000 mg PO BIDCM DIABETES #180 tabs 11/15/21 [Rx Last Taken 10/16/22] amlodipine 10 mg tablet 10 mg PO DAILY BLOOD PRESSURE #90 tabs 11/25/21 [Rx Last Taken 10/16/22] losartan 25 mg tablet 25 mg PO DAILY #90 tabs 12/06/21 [Rx Last Taken 10/16/22] ranolazine 500 mg tablet,extended release,12 hr 500 mg PO BID #180 tabs 01/11/22[Rx Last Taken 10/16/22] nitroglycerin 0.4 mg sublingual tablet See Rx Instructions .Route .COMPLEX #25 tabs 02/22/22 [Rx Last Taken Unknown] pen needle, diabetic 32 gauge x 5/32 (BD Ultra-Fine Lorie Pen Needle) #360 ea 04/08/22 [Rx Last Taken Unknown] paroxetine HCl 40 mg tablet 40 mg PO DAILY depression #90 tabs 04/12/22 [Rx Last Taken 10/16/22] potassium chloride 20 mEq tablet,extended release(part/cryst) 40 meq (2 x 20 mEq) PO TID potassium 90 days #540 tabs 08/11/22 [Rx Last Taken 10/16/22] ferrous sulfate 325 mg (65 mg iron) tablet 325 mg PO DAILY #90 tabs 08/18/22 [Rx Last Taken 10/16/22] Ozempic 1 mg/dose (4 mg/3 mL) subcutaneous pen injector (semaglutide) 1 mg (0.75mL) subcut QWEEK #3 mL 09/06/22 [Rx Last Taken 10/10/22] blood sugar diagnostic (OneTouch Verio test strips) #100 ea 09/06/22 [Rx Last Taken Unknown] cinacalcet 30 mg tablet 30 mg PO BID #60 tabs 09/06/22 [Rx Last Taken 10/16/22] insulin regular hum U-500 conc 500 unit/mL(3 mL) subcut pen (Humulin R U-500 (Conc) Insulin Kwikpen) 30 unit (0.06 mL) subcut .TIDCM #6 mL 09/06/22 [Rx Last Taken 10/16/22] cholecalciferol (vitamin D3) 1,250 mcg (50,000 unit) capsule 1,250 mcg PO QWEEK #8 caps 09/07/22 [Rx Last Taken 10/10/22] furosemide 20 mg tablet 40 mg (2 x 20 mg) PO BID 90 days #360 tabs 09/09/22 [Rx Last Taken 10/16/22] metoprolol succinate 50 mg tablet,extended release 24 hr 50 mg PO BID BLOOD PRESSURE #180 tabs 09/21/22 [Rx Last Taken 10/16/22] clopidogrel 75 mg tablet 75 mg PO DAILY BLOOD THINNER #90 tabs 10/03/22 [Rx Last Taken 10/16/22] insulin glargine 100 unit/mL (3 mL) subcutaneous pen (Lantus Solostar U-100 Insulin) 10 unit (0.1 mL) subcut DAILY #15 mL 10/18/22 [Rx Last Taken Unknown] tramadol 50 mg tablet 50 mg PO Q6H PRN PRN Pain Score 6-10 3 days #10 tabs 10/18/22 [Rx Last Taken Unknown] acetaminophen 325 mg tablet 650 mg PO Q4H PRN Pain 1-10 Or Fever>100.7 10/20/22 [History Last Taken Unknown] acetaminophen 650 mg rectal suppository 650 mg MA Q4H PRN fever or pain 10/20/22[History Last Taken Unknown] aluminum-magnesium hydroxide 225 mg-200 mg/5 mL oral suspension 30 ml PO DAILY PRN GI DISTRESS 10/20/22 [History Last Taken Unknown] bisacodyl 10 mg rectal suppository 10 mg MA DAILY PRN constipation 10/20/22 [History Last Taken Unknown] dextrose 40 % oral gel (Glucose Gel) 15 g PO Q15M PRN hypoglycemia 10/20/22 [History Last Taken Unknown] fenofibrate micronized 200 mg capsule 200 mg PO DAILY #30 caps 10/20/22 [Rx Last Taken Unknown] glucagon HCl 1 mg solution for injection (Glucagon (HCl) Emergency Kit) 1 mg IM Q20M PRN hypoglycemia 10/20/22 [History Last Taken Unknown] guaifenesin 200 mg/5 mL oral liquid 200 mg PO Q4H PRN congestion 10/20/22 [History Last Taken Unknown] magnesium hydroxide 400 mg/5 mL oral suspension (Milk of Magnesia) 30 ml PO DAILY PRN constipation 10/20/22 [History Last Taken Unknown] sodium phosphates 19 gram-7 gram/118 mL enema (Enema) 118 ml MA DAILY PRN constipation 10/20/22 [History Last Taken Unknown] Allergy/AdvReac Type Severity Reaction Status Date / Time No Known Allergies Allergy Verified 10/20/22 22:49 Family History Mother Colon cancer Sister CAD (coronary artery disease) CABG x 5 Diabetes Myocardial infarction, Onset Age: 67 Father Crohns disease Surgical History History of appendectomy History of appendectomy 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) History of coronary artery stent placement (10/12/21) History of eye surgery History of hip replacement History of intestinal surgery History of knee surgery History of tonsillectomy and adenoidectomy Social History household members: none housing: apartment other: Hx working in [employer] and [employer]. Smoking Status: Never smoker second hand exposure: Yes alcohol intake: former year quit: 2003 details: Sober since 2003. substance use type: former substance user Date of last use: 04/10/2004 and marijuana caffeine: Yes Type: carbonated beverages Number of servings: 2 and coffee Number of servings: 2 what type of physical activity do you participate in: none ROS ROS Narrative 14 point review of system is unremarkable Apart from current presentation symptoms of chest pain. Abnormal Lexiscan sestamibi study. l Physical Exam Cardio Cardio Narrative: Cardiac rhythm is A-fib with slow ventricular rate Cardiovascular exam S1-S2 regular No systolic or diastolic murmur Chest examination diminished air entry bilateral Examination lower extremity no lower extremity edema noted. Risk Stratification Risk Stratification Applicable: Yes Age >/= 65: Yes >/= 3 CAD Risk Factors (HTN, HLD, DM, family hx of CAD, or current smoker): Yes Aspirin Use in the Past 7 Days: Yes Severe Angina (>/= episodes in 24 hours): Yes EKG ST Changes >/= 0.5mm: No Positive Cardiac Marker: No VERONICA Risk Stratification Score: 4 VERONICA % Risk: 20% Risk Objective Data Vital Signs: Vital Signs Temp Pulse Resp BP Pulse Ox O2 Del Method O2 Flow Rate 98.0 F 65 14 152/100 H 97 Room Air 2 10/22/22 09:10 10/22/22 09:10 10/22/22 09:10 10/22/22 09:10 10/22/22 09:10 10/22/22 10:00 10/21/22 07:49 Oxygen Flow Rate (L/min) 2 Oxygen Delivery Method Room Air Weight: 266 lb 15.677 oz Body Mass Index (BMI) 38.2 Intake & Output: Intake and Output for Last 24 Hours 10/20/22 10/21/22 10/22/22 23:59 23:59 23:59 Intake Total 1800 / 1800 150 / 150 Output Total 1999 / 1999 1000 / 1000 Balance -200 / -200 -850 / -850 Lab / Micro Data 10/21/22 05:04 10/21/22 05:04 Labs: Laboratory Results - last 24 hr 10/21/22 16:45: POC Glucose 209 H 10/21/22 21:11: POC Glucose 104 10/22/22 06:04: POC Glucose 207 H 10/22/22 11:14: POC Glucose 223 H Cardiology Labs/Tests Rhythm: EKG: ECHO: Stress Test: Cardiac Cath: PCI: CT Surgery: Holter monitor: EPS: PPM: CXR: Chest CT Scan: Radiography Diagnostic Testing: Radiology Impression Echocardiogram 10/21/22 05:55 Interpretation Summary The estimated ejection fraction is 55-60 %. Normal LV systolic function Moderate MR In comparison to the echo in May 19, 2021 moderate MR noted. Ordering Physician: Purvi Jensen Referring Physician: Mery Raymond Performed By: Sarah Mendez, RDCS, RVT 10/22/22 1435 <Electronically signed by Ty Rocha MD> Cosigner Signature (if applicable): CC: Dr. Purvi Jensen MD; Dr. Mery Raymond MD; Dr. Ty Rocha MD~ Signed [facility] Work Phone: 1(474) 935-652207-15-2023 Progress note Author Maeve Coreas [facility] October 22, 2022 9:50am Note Date/Time October 22, 2022 8:10 am [facility] Medical Records Department [address] [place] [id number] Progress Note - Hospitalist 10/22/22807 MR#: [id number] Acct: [id number] Name: SHADE TEIXEIRA Rep #:[id number] : 1955 66 From: Maeve Coreas MD PCP: Dr. Mery Raymond MD Status:A DM IN Location: [place] [address] Reason for Visit Reason for Visit: Diagnoses Unspecified atrial fibrillation (10/21/22) Subjective Subjective Underwent nuclear stress test which demonstrated demonstrate reduced uptake of sestamibi in the inferior and post stress images demonstrate moderate reduced uptake in the anterior, lateral and inferior myocardium Consistent with reversible myocardial ischemia. Reduced tracer uptake in the inferior myocardium consistent with prior inferior OK. With inferior cisco-infarct ischemia and anterior and lateral reversible myocardial ischemia. Consult subsequently placed to cardiology Objective Data Objective Data Vital Signs: Vital Signs Temp Pulse Resp BP Pulse Ox O2 Del Method O2 Flow Rate 98.1 F 68 16 168/87 H 96 Room Air 2 10/22/22 03:27 10/22/22 03:27 10/22/22 03:27 10/22/22 03:27 10/22/22 03:27 10/22/22 03:27 10/21/22 07:49 Oxygen Flow Rate (L/min) 2 Oxygen Delivery Method Room Air Weight: 121.1 kg Body Mass Index (BMI) 38.2 Intake & Output: Intake and Output for Last 24 Hours 10/20/22 10/21/22 10/22/22 23:59 23:59 23:59 Intake Total 1800 / 1800 150 / 150 Output Total 1999 / 1999 500 / 500 Balance -200 / -200 -350 / -350 Lab / Micro Data 10/21/22 05:04 10/21/22 05:04 Labs: Laboratory Results - last 24 hr 10/21/22 07:46: POC Glucose 104 10/21/22 11:10: POC Glucose 146 H 10/21/22 16:45: POC Glucose 209 H 10/21/22 21:11: POC Glucose 104 Radiography Diagnostic Testing: Radiology Impression Echocardiogram 10/21/22 05:55 Interpretation Summary The estimated ejection fraction is 55-60 %. Normal LV systolic function Moderate MR In comparison to the echo in May 19, 2021 moderate MR noted. Ordering Physician: Purvi Jensen Referring Physician: Mery Raymond Performed By: Sarah Mendez, SAMARIA, RVT Physical Exam Narrative GENERAL: cooperative HEENT: Atraumatic; normocephalic EYES; Anicteric, Normal Conjunctiva NECK; supple, normal thyroid, RESPIRATORY: Diminished to auscultation CARDIOVASCULAR: Regular S1 S2, GI: soft, normoactive bowel sounds, : No Renal angle tenderness; EXTREMITIES: Lateral lower extremity stasis dermatitis MUSCULOSKELETAL: no muscle wasting NEURO: Awake; no lateralizing signs. SKIN: As described above PSYCH; Flat affect Assessment & Plan Assessment/Plan (1) Atrial fibrillation: PLAN: Plan Patient is a 66-year-old gentleman with multiple comorbidities admitted with chest discomfort 1. Chest discomfort ? Admitted to monitored bed, subsequent serial cardiac enzymes ordered. Given patient's significant past cardiac history ordered nuclear stress test to rule out ischemia ? 10/22/2022;Underwent nuclear stress test which demonstrated demonstrate reduceduptake of sestamibi in the inferior and post stress images demonstrate moderate reduced uptake in the anterior, lateral and inferior myocardium Consistent with reversible myocardial ischemia. Reduced tracer uptake in the inferior myocardium consistent with prior inferior [place]. With inferior cisco-infarct ischemia and anterior and lateral reversible myocardial ischemia. Consult subsequently placed to cardiology 2. Coronary artery disease ? With history of PCI LAD PTCA/DANIEL 2016 and OM1 PCI 10/2021, 3. Paroxysmal A-fib ? Controlled on systemic anticoagulation with apixaban 4. Right olecranon bursitis ? Managed with anti-inflammatory medications as well as steroid and tramadol forpain plans for patient to follow-up with orthopedic surgeon Dr. Gary as outpatient 5. Hyperparathyroidism with history of hypercalcemia ? Patient is on Cinacalcet 6. Hypertension - Blood pressure controlled, home medications continued with dose adjustment as needed 7. Diabetes mellitus type II -patient's oral hypoglycemics held. Placed on long acting insulin, Accu-Cheks a.c. and at bedtime and covered with sliding scale insulin 8. Chronic kidney disease stage III ? Kidney function at baseline 9. Depression with anxiety ? Patient is on SSRI regimen?Paxil did continue 10. Dyslipidemia ? Patient is on fenofibrate 11. Class II obesity with BMI of 38 point ? Complicating care weight loss advised 12. Obstructive sleep apnea ? On CPAP at night 13. DVT prophylaxis ? On apixaban Time spent in the patient's overall evaluation,decision-making process, review of diagnostic data, adjustment of management, discussion with other providers, nursing nursing and ancillary staff involved in patient's care documentation, 35 minutes Charges/Coding Visit Charges Inpatient E&M: 35490 Subs Hosp L2 10/22/22 0950 <Electronically signed by Maeve Coreas MD> Cosigner Signature (if applicable): CC: ~ Signed [facility] Work Phone: 1(756) 796-580007-14-2023 Progress note Author Maeve Coreas [facility] October 21, 2022 1:10pm Note Date/Time October 21, 2022 8:23 am [facility] Medical Records Department [address] [place] [address] Progress Note - Hospitalist 10/21/22816 MR#: [id number] Acct: [id number] Name: SHADE TEIXEIRA Rep #:[id number] : 1955 66 From: Maeve Coreas MD PCP: Dr. Mery Raymond MD Status:A DM IN [facility] Reason for Visit Reason for Visit: Diagnoses Unspecified atrial fibrillation (10/21/22) Subjective Subjective Patient is a 66-year-old gentleman with multiple comorbidities admitted with chest discomfort Objective Data Objective Data Vital Signs: Vital Signs Temp Pulse Resp BP Pulse Ox O2 Del Method O2 Flow Rate 97.1 F L 65 16 154/82 H 97 Nasal Cannula 2 10/21/22 07:49 10/21/22 07:49 10/21/22 07:49 10/21/22 07:49 10/21/22 07:49 10/21/22 07:49 10/21/22 07:49 Oxygen Flow Rate (L/min) 2 Oxygen Delivery Method Nasal Cannula Weight: 120.7 kg Body Mass Index (BMI) 38.2 Intake & Output: Intake and Output for Last 24 Hours 10/19/22 10/20/22 10/21/22 23:59 23:59 23:59 Intake Total 500 / 500 Balance 500 / 500 Lab / Micro Data 10/21/22 05:04 10/21/22 05:04 Labs: Laboratory Results - last 24 hr 10/20/22 23:00: WBC 6.7, RBC 4.09 L, Hgb 11.9 L, Hct 37.7 L, MCV 92.2, MCH 29.1,MCHC 31.6 L, RDW Std Deviation 46.5 H, RDW Coeff of Thao 13.8, Plt Count 355, MPV10.3, Immature Gran % (Auto) 0.600, Neut % (Auto) 74.2 H, Lymph % (Auto) 9.1 L, Alpine % (Auto) 12.7 H, Eos % (Auto) 2.7, Baso % (Auto) 0.7, Absolute Neuts (auto)5.0, Absolute Lymphs (auto) 0.61 L, Nucleated RBC % 0, D-Dimer Quant (PE/DVT) 0.70 H*, Sodium 139, Potassium 4.6, Chloride 104, Carbon Dioxide 28.0, Anion Gap7, BUN 32 H, Creatinine 1.72 H, Estim Creat Clear Calc 44.21, Est GFR (MDRD) Af Amer 51 L, Est GFR (MDRD) Non-Af 43 L, BUN/Creatinine Ratio 18.6, Glucose 126 H,Calcium 12.1 H, Troponin I High Sens 29, B-Natriuretic Peptide 225.1 H 10/21/22 01:45: Magnesium 1.8, Troponin I High Sens 29 10/21/22 05:04: WBC 7.6, RBC 4.30 L, Hgb 12.5 L, Hct 39.4 L, MCV 91.6, MCH 29.1,MCHC 31.7 L, RDW Std Deviation 45.5 H, RDW Coeff of Thao 13.5, Plt Count 386, MPV9.5, Immature Gran % (Auto) 0.500, Neut % (Auto) 75.6 H, Lymph % (Auto) 8.5 L, Alpine % (Auto) 12.2 H, Eos % (Auto) 2.5, Baso % (Auto) 0.7, Absolute Neuts (auto)5.8, Absolute Lymphs (auto) 0.65 L, Nucleated RBC % 0, Sodium 139, Potassium 4.3, Chloride 104, Carbon Dioxide 27.0, Anion Gap 8, BUN 29 H, Creatinine 1.68 H, Estim Creat Clear Calc 45.26, Est GFR (MDRD) Af Amer 53 L, Est GFR (MDRD) Non-Af 44 L, BUN/Creatinine Ratio 17.3, Glucose 115 H, Calcium 11.5 H, Total Bilirubin 0.70, AST 20, ALT 32, Alkaline Phosphatase 61, Troponin I High Sens 36, Total Protein 7.2, Albumin 3.5, Globulin 3.7, Albumin/Globulin Ratio 0.9, Triglycerides 192, Cholesterol 165, LDL Cholesterol 102, VLDL Cholesterol 38, HDL Cholesterol 25 L, TSH 2.83 10/21/22 05:16: Ionized Calcium 5.79 H Radiography Diagnostic Testing: Radiology Impression Chest X-Ray 10/20/22 23:15 IMPRESSION: No radiographic evidence of acute cardiopulmonary disease. Electronically Signed: Brown Russ MD at 0:21 EDT , Chest CTA 10/21/22 00:03 IMPRESSION: No pulmonary embolism or evidence of acute airspace disease. Nonspecific bilateral hilar adenopathy. Borderline cardiomegaly with mild pulmonary vascular congestion. Electronically Signed: Brown Russ MD at 1:01 EDT Reading Location ID and State: [facility] / [place] Tel , Service support , Physical Exam Narrative GENERAL: cooperative HEENT: Atraumatic; normocephalic EYES; Anicteric, Normal Conjunctiva NECK; supple, normal thyroid, RESPIRATORY: Diminished to auscultation CARDIOVASCULAR: Regular S1 S2, GI: soft, normoactive bowel sounds, : No Renal angle tenderness; EXTREMITIES: Lateral lower extremity stasis dermatitis MUSCULOSKELETAL: no muscle wasting NEURO: Awake; no lateralizing signs. SKIN: As described above PSYCH; Flat affect Assessment & Plan Assessment/Plan (1) Atrial fibrillation: PLAN: Plan Patient is a 66-year-old gentleman with multiple comorbidities admitted with chest discomfort 1. Chest discomfort ? Admitted to monitored bed, subsequent serial cardiac enzymes ordered. Given patient's significant past cardiac history ordered nuclear stress test to rule out ischemia 2. Coronary artery disease ? With history of PCI LAD PTCA/DANIEL 2016 and OM1 PCI 10/2021, 3. Paroxysmal A-fib ? Controlled on systemic anticoagulation with apixaban 4. Right olecranon bursitis ? Managed with anti-inflammatory medications as well as steroid and tramadol forpain plans for patient to follow-up with orthopedic surgeon Dr. Gary as outpatient 5. Hyperparathyroidism with history of hypercalcemia ? Patient is on Cinacalcet 6. Hypertension - Blood pressure controlled, home medications continued with dose adjustment as needed 7. Diabetes mellitus type II -patient's oral hypoglycemics held. Placed on long acting insulin, Accu-Cheks a.c. and at bedtime and covered with sliding scale insulin 8. Chronic kidney disease stage III ? Kidney function at baseline 9. Depression with anxiety ? Patient is on SSRI regimen?Paxil did continue 10. Dyslipidemia ? Patient is on fenofibrate 11. Class II obesity with BMI of 38 point ? Complicating care weight loss advised 12. Obstructive sleep apnea ? On CPAP at night 13. DVT prophylaxis ? On apixaban Time spent in the patient's overall evaluation,decision-making process, review of diagnostic data, adjustment of management, discussion with other providers, nursing nursing and ancillary staff involved in patient's care documentation, 50 minutes Charges/Coding Visit Charges Inpatient E&M: 28968 Subs Hosp L3 10/21/22 1310 <Electronically signed by Maeve Coreas MD> Cosigner Signature (if applicable): CC: ~ Signed [facility] Work Phone: [phone]) 767-368507-14-2023 History and physical note Author Purvi Jensen [facility] October 21, 2022 2:34am Note Date/Time October 21, 2022 1:31 am [facility] Medical Records Department [address] [place] [address] H&P Exam - Hospitalist 10/21/22 0130 MR#: [id number] Acct: [id number] Name: SHADE TEIXEIRA Rep #:[id number] : 1955 66 From: Purvi Jensen MD PCP: Dr. Mery Raymond MD Status:A DM IN Location: [place] [address] HPI - General General Date of Admission: 10/21/22 Date of Service: 10/21/22 Chief Complaint: Chest pain, dyspnea, increased edema. HPI Narrative The patient is a 66 y/o M w/ PMHx: Hyperparathyroidism with hypercalcemia, CKD stage III unclear subtype, Chronic normocytic anemia/iron deficiency anemia, Anxiety and Depression, CAD s/p PCI, Asthma, Hx VTE (DVT, PE), HTN, HLD, FAVIAN, Seizure disorder, Diabetes mellitus type II, PAF, recent admission for olecranonbursitis with right upper extremity pain treated with IV steroids, low-dose NSAIDs specifically Mobic discharged on tramadol with plan follow-up with orthopedicsurgeon Dr. Gary in 2 weeks. Who presents to the [facility] ED on 10/21/22 with history of intermittent chest discomfort for approximately 3 hours prior to ED arrival noted as a heaviness across the midportion of his chest with complaint of mild increased swelling and edema with dyspnea worse with exertion as well asrecent nonproductive cough. In the ED upon evaluation patient appears dyspneic with mild accessory muscle usage although he does improve somewhat once he is assisted to sit up at the bedside. He does state that he feels significantly short of breath but denies any current chest discomfort. Work-up in the ED included T97.7, heart rate 75, BP 179/114, respiratory rate 16, 92% on room air,CBC with WBC 6.7, hemoglobin 0.9, MCV 92.2, platelet 355 with lymphopenia, D-dimer 0.7, BMP with BUN/creatinine 32/1.72, calcium 12.1, BNP 225.1, troponin 29, chest x-ray with no acute cardiopulmonary findings, CTPA with no pulmonary embolism or evidence of acute airspace disease, nonspecific bilateral hilar adenopathy, borderline cardiomegaly with mild pulmonary vascular congestion, EKG with atrial fibrillation with no chart reported history previously but 05/2022 and recent 10/2022 admission EKGs performed demonstrated paroxysmal atrial fibrillation evidence. In the ED patient ministered aspirin 324 mg p.o. x1 as well as Lovenox 120 mg subcu x1. [facility] Medical History (Updated 10/21/22 @ 02:[address] Purvi Jensen MD) Acquired left ventricular hypertrophy Adult failure to thrive Anemia Anxiety and depression Atherosclerosis of coronary artery of [place] heart without angina pectoris Chronic hypoxemic respiratory failure Chronic pain of both knees Diabetes Essential (primary) hypertension History of DVT (deep vein thrombosis) History of pulmonary embolism Hypercalcemia Hyperparathyroidism Hypertriglyceridemia Morbid obesity with BMI of 40.0-44.9, adult FAVIAN (obstructive sleep apnea) Osteoarthritis Primary hyperparathyroidism Pure hypercholesterolemia Seizures Type 2 diabetes mellitus Home Medications Handicap Placard #1 ea 04/08/20 [Rx Last Taken Unknown] flash glucose scanning reader (FreeStyle Tiffanie 2 Riparius) #1 ea 02/16/21 [Rx Last Taken Unknown] flash glucose sensor (FreeStyle Tiffanie 2 Sensor kit) #2 ea 02/16/21 [Rx Last Taken Unknown] metformin 1,000 mg tablet 1,000 mg PO BIDCM DIABETES #180 tabs 11/15/21 [Rx Last Taken 10/16/22] amlodipine 10 mg tablet 10 mg PO DAILY BLOOD PRESSURE #90 tabs 11/25/21 [Rx Last Taken 10/16/22] losartan 25 mg tablet 25 mg PO DAILY #90 tabs 12/06/21 [Rx Last Taken 10/16/22] ranolazine 500 mg tablet,extended release,12 hr 500 mg PO BID #180 tabs 01/11/22[Rx Last Taken 10/16/22] nitroglycerin 0.4 mg sublingual tablet See Rx Instructions .Route .COMPLEX #25 tabs 02/22/22 [Rx Last Taken Unknown] pen needle, diabetic 32 gauge x 5/32 (BD Ultra-Fine Lorie Pen Needle) #360 ea 04/08/22 [Rx Last Taken Unknown] paroxetine HCl 40 mg tablet 40 mg PO DAILY depression #90 tabs 04/12/22 [Rx Last Taken 10/16/22] potassium chloride 20 mEq tablet,extended release(part/cryst) 40 meq (2 x 20 mEq) PO TID potassium 90 days #540 tabs 08/11/22 [Rx Last Taken 10/16/22] ferrous sulfate 325 mg (65 mg iron) tablet 325 mg PO DAILY #90 tabs 08/18/22 [Rx Last Taken 10/16/22] Ozempic 1 mg/dose (4 mg/3 mL) subcutaneous pen injector (semaglutide) 1 mg (0.75mL) subcut QWEEK #3 mL 09/06/22 [Rx Last Taken 10/10/22] blood sugar diagnostic (OneTouch Verio test strips) #100 ea 09/06/22 [Rx Last Taken Unknown] cinacalcet 30 mg tablet 30 mg PO BID #60 tabs 09/06/22 [Rx Last Taken 10/16/22] insulin regular hum U-500 conc 500 unit/mL(3 mL) subcut pen (Humulin R U-500 (Conc) Insulin Kwikpen) 30 unit (0.06 mL) subcut .TIDCM #6 mL 09/06/22 [Rx Last Taken 10/16/22] cholecalciferol (vitamin D3) 1,250 mcg (50,000 unit) capsule 1,250 mcg PO QWEEK #8 caps 09/07/22 [Rx Last Taken 10/10/22] furosemide 20 mg tablet 40 mg (2 x 20 mg) PO BID 90 days #360 tabs 09/09/22 [Rx Last Taken 10/16/22] metoprolol succinate 50 mg tablet,extended release 24 hr 50 mg PO BID BLOOD PRESSURE #180 tabs 09/21/22 [Rx Last Taken 10/16/22] clopidogrel 75 mg tablet 75 mg PO DAILY BLOOD THINNER #90 tabs 10/03/22 [Rx Last Taken 10/16/22] insulin glargine 100 unit/mL (3 mL) subcutaneous pen (Lantus Solostar U-100 Insulin) 10 unit (0.1 mL) subcut DAILY #15 mL 10/18/22 [Rx Last Taken Unknown] tramadol 50 mg tablet 50 mg PO Q6H PRN PRN Pain Score 6-10 3 days #10 tabs 10/18/22 [Rx Last Taken Unknown] acetaminophen 325 mg tablet 650 mg PO Q4H PRN Pain 1-10 Or Fever>100.7 10/20/22 [History Last Taken Unknown] acetaminophen 650 mg rectal suppository 650 mg MA Q4H PRN fever or pain 10/20/22[History Last Taken Unknown] aluminum-magnesium hydroxide 225 mg-200 mg/5 mL oral suspension 30 ml PO DAILY PRN GI DISTRESS 10/20/22 [History Last Taken Unknown] bisacodyl 10 mg rectal suppository 10 mg MA DAILY PRN constipation 10/20/22 [History Last Taken Unknown] dextrose 40 % oral gel (Glucose Gel) 15 g PO Q15M PRN hypoglycemia 10/20/22 [History Last Taken Unknown] fenofibrate micronized 200 mg capsule 200 mg PO DAILY #30 caps 10/20/22 [Rx Last Taken Unknown] glucagon HCl 1 mg solution for injection (Glucagon (HCl) Emergency Kit) 1 mg IM Q20M PRN hypoglycemia 10/20/22 [History Last Taken Unknown] guaifenesin 200 mg/5 mL oral liquid 200 mg PO Q4H PRN congestion 10/20/22 [History Last Taken Unknown] magnesium hydroxide 400 mg/5 mL oral suspension (Milk of Magnesia) 30 ml PO DAILY PRN constipation 10/20/22 [History Last Taken Unknown] sodium phosphates 19 gram-7 gram/118 mL enema (Enema) 118 ml MA DAILY PRN constipation 10/20/22 [History Last Taken Unknown] Allergy/AdvReac Type Severity Reaction Status Date / Time No Known Allergies Allergy Verified 10/20/22 22:49 Family History Mother Colon cancer Sister CAD (coronary artery disease) CABG x 5 Diabetes Myocardial infarction, Onset Age: 67 Father Crohns disease Surgical History History of appendectomy History of appendectomy 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) History of coronary artery stent placement (10/12/21) History of eye surgery History of hip replacement History of intestinal surgery History of knee surgery History of tonsillectomy and adenoidectomy Social History household members: none housing: apartment other: Hx working in [employer] and [employer]. Smoking Status: Never smoker second hand exposure: Yes alcohol intake: former year quit: 2003 details: Sober since 2003. substance use type: former substance user Date of last use: 04/10/2004 and marijuana caffeine: Yes Type: carbonated beverages Number of servings: 2 and coffee Number of servings: 2 what type of physical activity do you participate in: none ROS ROS Narrative Admission Review of Systems: CONSTITUTIONAL: No weight loss, fever, chills, + weakness or fatigue. HEENT: Eyes: No visual loss, blurred vision, double vision or yellow sclerae. Ears, Nose, Throat: No hearing loss, sneezing, runny nose or sore throat. SKIN: No rash or itching, lesions, wounds. CARDIOVASCULAR: + chest pain, chest pressure or chest discomfort, palpitations, edema, orthopnea. No syncopal events. RESPIRATORY: + shortness of breath, No cough or sputum, wheezing, hemoptysis. GASTROINTESTINAL: No anorexia, nausea, emesis, diarrhea, abdominal pain, melena,BRBPR. GENITOURINARY: No dysuria, frequency, urgency or retention. NEUROLOGICAL: No dizziness, headache, syncope, paralysis, ataxia, numbness or tingling in the extremities, focal weakness, change in bowel or bladder control,seizure. MUSCULOSKELETAL: + muscle, back pain, joint pain or stiffness. HEMATOLOGIC: + anemia, bleeding or bruising. LYMPHATICS: No enlarged nodes. No history of splenectomy. PSYCHIATRIC: + history of depression or anxiety. ENDOCRINOLOGIC: No reports of sweating, cold or heat intolerance. No polyuria orpolydipsia. ALLERGIES: No history of asthma, hives, eczema or rhinitis. Vital Signs Vital Signs Vital Signs: 10/20/22 22:50 10/20/22 22:55 10/20/22 23:07 Temperature 97.7 F L Temperature Source Temporal Pulse Rate 75 Respiratory Rate 16 Blood Pressure 179/114 H Blood Pressure Mean 135 Pulse Ox 92 Oxygen Delivery Method Room Air Room Air Weight Weight: 270 lb 15.17 oz Body Mass Index (BMI) 38.8 Physical Exam Narrative Physical Examination: General: Awake, alert, oriented x 3 and cooperative, seated upright in the ED bed, denies current chest pain but notes dyspnea, evidence mild accessory muscleusage. Skin: Normal color, normal turgor, no icterus, no cyanosis except chronic bilateral lower extremity lymphedema with chronic venous stasis skin changes. HEENT: AT/NC, EOMI, PERRLA, mildly dry MM, no carotid bruits, + JVD noted; however, difficult exam as notable thickened neck. Lungs: Mildly diminished, greater bases, mildly increased RR and mild accessory muscle usage noted, no overt rales, ronchi or wheezing. Heart: Irregular, rate controlled; no gallop, rub audible. Abdomen: Soft, obese, NTTP, ND, distant normal BS, no HSM. Extremities: No cyanosis, no clubbing, chronic bilateral lower extremity lymphedema 2+ pitting with chronic venous stasis skin changes. Neurological: Patient awake, alert, oriented as noted, cognitive function intact; pupils equally reactive to light and accommodation, cranial nerves II-XII grossly normal, moving all 4 extremities, no focal deficits, strength severely globally decreased secondary to acute presentation. Psychiatric: Affect appears fatigued, appears dyspneic, no acute evidence of depressive or anxiety feelings but does have underlying history. Results Lab / Micro Data 10/20/22 23:00 10/20/22 23:00 Labs: Laboratory Results - last 24 hr 10/20/22 23:00: WBC 6.7, RBC 4.09 L, Hgb 11.9 L, Hct 37.7 L, MCV 92.2, MCH 29.1,MCHC 31.6 L, RDW Std Deviation 46.5 H, RDW Coeff of Thao 13.8, Plt Count 355, MPV10.3, Immature Gran % (Auto) 0.600, Neut % (Auto) 74.2 H, Lymph % (Auto) 9.1 L, Alpine % (Auto) 12.7 H, Eos % (Auto) 2.7, Baso % (Auto) 0.7, Absolute Neuts (auto)5.0, Absolute Lymphs (auto) 0.61 L, Nucleated RBC % 0, D-Dimer Quant (PE/DVT) 0.70 H*, Sodium 139, Potassium 4.6, Chloride 104, Carbon Dioxide 28.0, Anion Gap7, BUN 32 H, Creatinine 1.72 H, Estim Creat Clear Calc 44.21, Est GFR (MDRD) Af Amer 51 L, Est GFR (MDRD) Non-Af 43 L, BUN/Creatinine Ratio 18.6, Glucose 126 H,Calcium 12.1 H, Troponin I High Sens 29, B-Natriuretic Peptide 225.1 H Radiology Impression Chest X-Ray 10/20/22 23:15 IMPRESSION: No radiographic evidence of acute cardiopulmonary disease. Electronically Signed: Brown Russ MD at 0:21 EDT , Chest CTA 10/21/22 00:03 IMPRESSION: No pulmonary embolism or evidence of acute airspace disease. Nonspecific bilateral hilar adenopathy. Borderline cardiomegaly with mild pulmonary vascular congestion. Electronically Signed: Brown Russ MD at 1:01 EDT , Assessment & Plan Assessment/Plan (1) Atrial fibrillation: PLAN: Plan The patient is a 66 y/o M w/ PMHx: Hyperparathyroidism with hypercalcemia, CKD stage III unclear subtype, Chronic normocytic anemia/iron deficiency anemia, Anxiety and Depression, CAD s/p PCI, Asthma, Hx VTE (DVT, PE), HTN, HLD, FAVIAN, Seizure disorder, Diabetes mellitus type II, PAF, recent admission for olecranonbursitis with right upper extremity pain treated with IV steroids, low-dose NSAIDs specifically Mobic discharged on tramadol with plan follow-up with orthopedic surgeon Dr. Gary in 2 weeks. Who presents to the [facility] ED on 10/21/22 with history of intermittent chest discomfort for approximately 3 hours prior to ED arrival noted as a heaviness across the midportion of his chest withcomplaint of mild increased swelling and edema with dyspnea worse with exertion as well as recent nonproductive cough. #1. Chest discomfort, Dyspnea, suspected in part secondary to Paroxysmal atrialfibrillation, newer onset although unclear history with associated volume overload/CHF exacerbation, unclear type: EKG in ED w/ atrial fibrillation, rate controlled. Will admit to PCU, maintain on telemetry, obtain cardiac enzyme serial set, obtain magnesium level, obtain ECHO as none noted recently, obtain TSH level, will initiate judicious IV diuresis given underlying chronic kidney disease. CHADs scoring appropriate for anticoagulation start at this time w/ Lovenox initiated in the ED however will transition to oral Eliquis therapy. Wewill continue oral metoprolol regimen. Low threshold to involve Cardiology pending results and response to treatment. #2. Recent right olecranon bursitis: Evaluated inpatient with treatment with short course anti-inflammatory as well as steroids with discharge on tramadol with plan follow-up outpatient with orthopedic surgeon Dr. Gary. #3. Hyperparathyroidism with hypercalcemia: Admission BMP with calcium 12.1, will obtain hepatic profile to assess for corrected Ca++ and request ICa, maintained on Cinacalcet regimen. Pending results may need further adjustment and more aggressive outpatient follow-up. #4. CAD: Status post PCI LAD PTCA/DANIEL 2016 and OM1 PCI 10/2021, will continue home Plavix, not on statin therapy but on fenofibrate, metoprolol, losartan, Ranexa home regimen. Most recent 10/12/2021 cardiac catheterization with [place] multivessel coronary disease with staged for FFR of the LAD with referral at that time for immediate PCI of OM1. #5. Diabetes mellitus type II: Hold oral home regimen, continue home insulin regimen, ADA diet, accu checks w/ ISS. #6. Chronic Kidney Disease Stage III, unclear subtype: Admission BUN/Cr 32/1.72, baseline renal function appears primarily 1.3-1.6 more recently repeat BMP in AM. Follows with Dr. Zaragoza with nephrology. #7. Chronic normocytic anemia/iron deficiency anemia: Admission hemoglobin 11.9, MCV 92.2 baseline appears primarily 12 range, will continue to trend, continue iron supplementation. #8. Anxiety and depression: We will continue patient home Paxil regimen. #9. Hypertension: Continue home regimen including amlodipine, losartan, metoprolol, IV Lasix as noted with hold parameters as needed, PRN hydralazine. #10. Hyperlipidemia: We will continue patient home chronic fenofibrate regimen,not on statin therapy per most current list noted, FLP in AM. #11. Chart reported seizure history: Not on any antiepileptic medication, encourage continued close outpatient monitoring. #12. FAVIAN: CPAP nightly. #13. DVT prophylaxis: Eliquis being initiated as noted. #14. CODE status: Patient HCPOA and living will are not in place. Discussed CODE status at length including difference between FULL code, DNR-CCA and DNR- CCstatus. Following discussions about the differences in these status, requested Full code status. Advanced Care Planning Face to Face Time: 16 minutes. Admission Evaluation Time spent evaluating chart, patient history, patient evaluation, care planning and discussion with specialists: 76 minutes. Charges/Coding Visit Charges Inpatient E&M: 61082 Init Hosp L3 Procedures Hospitalists Procedures: 02232 Advncd Care Plan 30 Min 10/21/22 0234 <Electronically signed by Purvi Jensen MD> Cosigner Signature (if applicable): CC: Dr. Purvi Jensen MD; Dr. Mery Raymond MD~ Signed [facility] Work Phone: [phone]) [phone] Discharge summary Author Jaja Boudreaux [facility] October 21, 2022 1:53am Note Date/Time October 20, 2022 11:1 2pm [facility] Medical Records Department [address] [place] [id number] Emergency Department Summary 10/20/22 MR#: [id number] Acct: [id number] Name: SHADE TEIXEIRA Rep #:[id number] : 1955 66 From: Jaja Boudreaux MD PCP: Dr. Mery Raymond MD Status:A DM IN Location: [place] [address] HPI History of Present Illness Chief Complaint: Chest Pain Informant: patient Onset/Context/Timing Onset: Today Location: Substernal Current Severity: Mild Maximum Severity: Mild Narrative Narrative: Patient presents via EMS secondary to chest pain. He reports having intermittent chest pain over the past 3 hours. He describes it as a heaviness across the midportion of his chest. He also feels that he is more swollen and does have a history of CHF. He states he feels short of breath and has had a cough recently. Patient was admitted to the hospital October 17 through secondary to right arm pain. He states while his symptoms initially improved while he was here symptoms have worsened again and he continues to have right arm pain. [facility] Medical History Abnormal chest xray Acquired left ventricular hypertrophy Acute diverticulitis Adult failure to thrive Anemia Anxiety and depression Arthritis Atherosclerosis of coronary artery of [place] heart without angina pectoris Chest discomfort Chronic hypoxemic respiratory failure Chronic pain of both knees Colon cancer screening Dark stools Debility Diabetes Dyspnea on exertion Epistaxis Essential (primary) hypertension Fatigue Flu vaccine need Generalized weakness Health care maintenance History of DVT (deep vein thrombosis) History of pulmonary embolism Hypercalcemia Hyperparathyroidism Hypertension Hypertriglyceridemia Hypoxia Irregular heart beat Morbid obesity with BMI of 40.0-44.9, adult Near syncope Obesity FAVIAN (obstructive sleep apnea) Osteoarthritis Primary hyperparathyroidism Pulmonary embolism Pure hypercholesterolemia Seizures Shortness of breath Type 2 diabetes mellitus Vertigo Home Medications Handicap Placard #1 ea 04/08/20 [Rx Last Taken Unknown] flash glucose scanning reader ([employer] Tiffanie 2 Riparius) #1 ea 02/16/21 [Rx Last Taken Unknown] flash glucose sensor (FreeStyle Tiffanie 2 Sensor kit) #2 ea 02/16/21 [Rx Last Taken Unknown] metformin 1,000 mg tablet 1,000 mg PO BIDCM DIABETES #180 tabs 11/15/21 [Rx Last Taken 10/16/22] amlodipine 10 mg tablet 10 mg PO DAILY BLOOD PRESSURE #90 tabs 11/25/21 [Rx Last Taken 10/16/22] losartan 25 mg tablet 25 mg PO DAILY #90 tabs 12/06/21 [Rx Last Taken 10/16/22] ranolazine 500 mg tablet,extended release,12 hr 500 mg PO BID #180 tabs 01/11/22[Rx Last Taken 10/16/22] nitroglycerin 0.4 mg sublingual tablet See Rx Instructions .Route .COMPLEX #25 tabs 02/22/22 [Rx Last Taken Unknown] pen needle, diabetic 32 gauge x 5/32 (BD Ultra-Fine Lorie Pen Needle) #360 ea 04/08/22 [Rx Last Taken Unknown] paroxetine HCl 40 mg tablet 40 mg PO DAILY depression #90 tabs 04/12/22 [Rx Last Taken 10/16/22] potassium chloride 20 mEq tablet,extended release(part/cryst) 40 meq (2 x 20 mEq) PO TID potassium 90 days #540 tabs 08/11/22 [Rx Last Taken 10/16/22] ferrous sulfate 325 mg (65 mg iron) tablet 325 mg PO DAILY #90 tabs 08/18/22 [Rx Last Taken 10/16/22] Ozempic 1 mg/dose (4 mg/3 mL) subcutaneous pen injector (semaglutide) 1 mg (0.75mL) subcut QWEEK #3 mL 09/06/22 [Rx Last Taken 10/10/22] blood sugar diagnostic (ATRI - [employer] Reviews & InformationTouch Verio test strips) #100 ea 09/06/22 [Rx Last Taken Unknown] cinacalcet 30 mg tablet 30 mg PO BID #60 tabs 09/06/22 [Rx Last Taken 10/16/22] insulin regular hum U-500 conc 500 unit/mL(3 mL) subcut pen (Humulin R U-500 (Conc) Insulin Kwikpen) 30 unit (0.06 mL) subcut .TIDCM #6 mL 09/06/22 [Rx Last Taken 10/16/22] cholecalciferol (vitamin D3) 1,250 mcg (50,000 unit) capsule 1,250 mcg PO QWEEK #8 caps 09/07/22 [Rx Last Taken 10/10/22] furosemide 20 mg tablet 40 mg (2 x 20 mg) PO BID 90 days #360 tabs 09/09/22 [Rx Last Taken 10/16/22] metoprolol succinate 50 mg tablet,extended release 24 hr 50 mg PO BID BLOOD PRESSURE #180 tabs 09/21/22 [Rx Last Taken 10/16/22] clopidogrel 75 mg tablet 75 mg PO DAILY BLOOD THINNER #90 tabs 10/03/22 [Rx Last Taken 10/16/22] insulin glargine 100 unit/mL (3 mL) subcutaneous pen (Lantus Solostar U-100 Insulin) 10 unit (0.1 mL) subcut DAILY #15 mL 10/18/22 [Rx Last Taken Unknown] tramadol 50 mg tablet 50 mg PO Q6H PRN PRN Pain Score 6-10 3 days #10 tabs 10/18/22 [Rx Last Taken Unknown] acetaminophen 325 mg tablet 650 mg PO Q4H PRN Pain 1-10 Or Fever>100.7 10/20/22 [History Last Taken Unknown] acetaminophen 650 mg rectal suppository 650 mg MA Q4H PRN fever or pain 10/20/22[History Last Taken Unknown] aluminum-magnesium hydroxide 225 mg-200 mg/5 mL oral suspension 30 ml PO DAILY PRN GI DISTRESS 10/20/22 [History Last Taken Unknown] bisacodyl 10 mg rectal suppository 10 mg MA DAILY PRN constipation 10/20/22 [History Last Taken Unknown] dextrose 40 % oral gel (Glucose Gel) 15 g PO Q15M PRN hypoglycemia 10/20/22 [History Last Taken Unknown] fenofibrate micronized 200 mg capsule 200 mg PO DAILY #30 caps 10/20/22 [Rx Last Taken Unknown] glucagon HCl 1 mg solution for injection (Glucagon (HCl) Emergency Kit) 1 mg IM Q20M PRN hypoglycemia 10/20/22 [History Last Taken Unknown] guaifenesin 200 mg/5 mL oral liquid 200 mg PO Q4H PRN congestion 10/20/22 [History Last Taken Unknown] magnesium hydroxide 400 mg/5 mL oral suspension (Milk of Magnesia) 30 ml PO DAILY PRN constipation 10/20/22 [History Last Taken Unknown] sodium phosphates 19 gram-7 gram/118 mL enema (Enema) 118 ml MA DAILY PRN constipation 10/20/22 [History Last Taken Unknown] Allergy/AdvReac Type Severity Reaction Status Date / Time No Known Allergies Allergy Verified 10/20/22 22:49 Family History Mother Colon cancer Sister CAD (coronary artery disease) CABG x 5 Diabetes Myocardial infarction, Onset Age: 67 Father Crohns disease Surgical History History of appendectomy History of appendectomy 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 Smoking Status: Never smoker second hand exposure: Yes alcohol intake: former year quit: 2003 details: Sober since 2003. substance use type: former substance user Date of last use: 04/10/2004 and marijuana caffeine: Yes Type: carbonated beverages Number of servings: 2 and coffee Number of servings: 2 what type of physical activity do you participate in: none ROS ROS ED Constitutional Constitutional ED: Denies chills or fever(s) Eyes Eyes: Denies change in vision ENT ENT ED: Denies rhinorrhea Cardiovascular Cardiovascular: Reports chest pain Respiratory/Chest Respiratory/Chest: Reports cough and dyspnea Gastrointestinal Gastrointestinal: Denies abdominal pain, nausea or vomiting Musculoskeletal Musculoskeletal: Reports other Details: Lower extremity edema ; Denies back pain or neck pain Neurologic Neurologic: Denies headache(s) Psychiatric Psychiatric: Denies anxiety or depression Hematologic/Lymphatic Hematologic/Lymphatic: Denies easy bleeding or easy bruising Allergic/Immunologic Allergic/Immunologic ED: Denies mouth swelling or tongue swelling EXAM Physical Exam Const Vital Signs: 10/20/22 22:50 10/20/22 22:55 10/20/22 23:07 Temperature 97.7 F L Temperature Source Temporal Pulse Rate 75 Respiratory Rate 16 Blood Pressure 179/114 H Blood Pressure Mean 135 Pulse Ox 92 Oxygen Delivery Method Room Air Room Air 10/21/22 01:33 Temperature Temperature Source Pulse Rate 87 Respiratory Rate 24 H Blood Pressure 161/107 H Blood Pressure Mean 125 Pulse Ox 93 Oxygen Delivery Method Positive obese Nutritional Appearance: obese HEENT Reports moist mucous membranes Chest Wall inspection of chest normal and palpation of chest normal Resp normal respiratory effort and clear to auscultation bilaterally Resp Narrative: Diminished at the bilateral bases. Cardio regular rate and regular rhythm GI soft to palpation and non-tender Extremity Extremity Narrative: 3+ bilateral lower extremity edema, symmetric. Neuro oriented x3 and no sensory deficits noted Motor Exam: strength 5/5 throughout Skin no rashes or lesions noted Heart Score History: Slightly/Non-Suspicious ECG: Normal Age: >/= 65 years Risk Factors: >/= 3 Risk Factors or History of CAD Troponin: </= Normal Limit Score: 4 MDM MDM MDM Narrative Medical decision making narrative: Patient placed on shelter monitor. EKG obtained to evaluate for cardiac arrhythmia/ischemia. Labwork obtained to evaluate for leukocytosis, anemia, andelectrolyte derangement. Chest x-ray obtained to evaluate for acute lung pathology, cardiac size, or mediastinal abnormality. History & Record Review Discussion w/independent historian: EMS personnel and Patient Additional record(s) reviewed:: Prior inpatient record, Prior ED visit and Priorlabs Lab Data Attestation: I reviewed the patient's lab results. Labs: Laboratory Results - last 24 hr 10/20/22 23:00 WBC 6.7 RBC 4.09 L Hgb 11.9 L Hct 37.7 L MCV 92.2 MCH 29.1 MCHC 31.6 L RDW Std Deviation 46.5 H RDW Coeff of Thao 13.8 Plt Count 355 MPV 10.3 Immature Gran % (Auto) 0.600 Neut % (Auto) 74.2 H Lymph % (Auto) 9.1 L Alpine % (Auto) 12.7 H Eos % (Auto) 2.7 Baso % (Auto) 0.7 Absolute Neuts (auto) 5.0 Absolute Lymphs (auto) 0.61 L Nucleated RBC % 0 D-Dimer Quant (PE/DVT) 0.70 H* Sodium 139 Potassium 4.6 Chloride 104 Carbon Dioxide 28.0 Anion Gap 7 BUN 32 H Creatinine 1.72 H Estim Creat Clear Calc 44.21 Est GFR (MDRD) Af Amer 51 L Est GFR (MDRD) Non-Af 43 L BUN/Creatinine Ratio 18.6 Glucose 126 H Calcium 12.1 H Troponin I High Sens 29 B-Natriuretic Peptide 225.1 H Radiography Chest X-Ray - ED: 1 View, Read by ED Physician, Chronic Changes and No Infiltrates Diagnostic Testing: Clinical Impression(s) from Imaging Studies Chest X-Ray 10/20/22 23:15 IMPRESSION: No radiographic evidence of acute cardiopulmonary disease. Electronically Signed: Brown Russ MD at 0:21 EDT , Chest CTA 10/21/22 00:03 IMPRESSION: No pulmonary embolism or evidence of acute airspace disease. Nonspecific bilateral hilar adenopathy. Borderline cardiomegaly with mild pulmonary vascular congestion. Electronically Signed: Brown Russ MD at 1:01 EDT , EKG Initial EKG: Attestation: I personally reviewed and interpreted this EKG as follows: Interpretation: Atrial Fibrillation (Atrial fibrillation with a rate of 78bpm. No acute ST change.) Treatment and Re-Evaluation :: Patient's EKG at this time reveals atrial fibrillation. I do not see history ofA-fib in his documentation and patient does not know of a history of A-fib. CBC reveals normal white count at 6.7 with a hemoglobin of 11.9. Chemistry studies reveal a BUN of 32 and a creatinine 1.72. Troponin is 29. His BNP is slightly elevated at 225. His D-dimer is 0.70. Portable chest x-ray per my interpretation feels chronic changes with no focal infiltrate. Radiology interpretation is reviewed. Given the patient's chest pain and elevated D-dimer, he is sent for a CTA of thechest. This reveals no evidence of pulmonary embolism or acute airspace disease. I discussed atrial fibrillation with the patient and he does not believe he has ever been diagnosed with this before. He will be given a dose ofLovenox at this time and discussed with hospitalist given his chest pain and newonset arrhythmia. Addendum: On review of prior EKGs, it appears the patient had an EKG in the cardiology office in May that was read as atrial fibrillation. When he wasrecently in the hospital earlier this month he had an EKG that is read as atrialfibrillation. I do not see atrial fibrillation documented in his history as chronic diagnoses. Discharge Plan Dx/Rx/DC Orders Clinical Impression: Chest pain, Atrial fibrillation Disposition Disposition: Acute Care Hospital [facility] What to do if you have Problems For any increased pain, shortness of breath, bleeding, nausea or vomiting, chestpain, or any unexpected problems, contact your Primary Care Provider. Call [facility] ([phone]) or report to the closest Emergency Room. Call 911 if necessary. 10/21/22 0153 <Electronically signed by Jaja Boudreaux MD> Cosigner Signature (if applicable): CC: Dr. Mery Raymond MD ~ Signed [facility] Work Phone: [phone] Discharge summary Author Jaja Boudreaux [facility] October 21, 2022 1:53am Note Date/Time October 20, 2022 11:1 2pm [facility] Medical Records Department [address] [place] [address] Emergency Department Summary 10/20/22 MR#: [id number] Acct: [id number] Name: SHADE TEIXEIRA Rep #:[id number] : 1955 66 From: Jaja Boudreaux MD PCP: Dr. Mery Raymond MD Status:A DM IN Location: [place] [address] HPI History of Present Illness Chief Complaint: Chest Pain Informant: patient Onset/Context/Timing Onset: Today Location: Substernal Current Severity: Mild Maximum Severity: Mild Narrative Narrative: Patient presents via EMS secondary to chest pain. He reports having intermittent chest pain over the past 3 hours. He describes it as a heaviness across the midportion of his chest. He also feels that he is more swollen and does have a history of CHF. He states he feels short of breath and has had a cough recently. Patient was admitted to the hospital October 17 secondary to right arm pain. He states while his symptoms initially improved while he was here symptoms have worsened again and he continues to have right arm pain. [facility] [facility] Medical History Abnormal chest xray Acquired left ventricular hypertrophy Acute diverticulitis Adult failure to thrive Anemia Anxiety and depression Arthritis Atherosclerosis of coronary artery of [place] heart without angina pectoris Chest discomfort Chronic hypoxemic respiratory failure Chronic pain of both knees Colon cancer screening Dark stools Debility Diabetes Dyspnea on exertion Epistaxis Essential (primary) hypertension Fatigue Flu vaccine need Generalized weakness Health care maintenance History of DVT (deep vein thrombosis) History of pulmonary embolism Hypercalcemia Hyperparathyroidism Hypertension Hypertriglyceridemia Hypoxia Irregular heart beat Morbid obesity with BMI of 40.0-44.9, adult Near syncope Obesity FAVIAN (obstructive sleep apnea) Osteoarthritis Primary hyperparathyroidism Pulmonary embolism Pure hypercholesterolemia Seizures Shortness of breath Type 2 diabetes mellitus Vertigo Home Medications Handicap Placard #1 ea 04/08/20 [Rx Last Taken Unknown] flash glucose scanning reader ([employer] Tiffanie 2 Riparius) #1 ea 02/16/21 [Rx Last Taken Unknown] flash glucose sensor (FreeStyle Tiffanie 2 Sensor kit) #2 ea 02/16/21 [Rx Last Taken Unknown] metformin 1,000 mg tablet 1,000 mg PO BIDCM DIABETES #180 tabs 11/15/21 [Rx Last Taken 10/16/22] amlodipine 10 mg tablet 10 mg PO DAILY BLOOD PRESSURE #90 tabs 11/25/21 [Rx Last Taken 10/16/22] losartan 25 mg tablet 25 mg PO DAILY #90 tabs 12/06/21 [Rx Last Taken 10/16/22] ranolazine 500 mg tablet,extended release,12 hr 500 mg PO BID #180 tabs 01/11/22[Rx Last Taken 10/16/22] nitroglycerin 0.4 mg sublingual tablet See Rx Instructions .Route .COMPLEX #25 tabs 02/22/22 [Rx Last Taken Unknown] pen needle, diabetic 32 gauge x 5/32 (BD Ultra-Fine Lorie Pen Needle) #360 ea 04/08/22 [Rx Last Taken Unknown] paroxetine HCl 40 mg tablet 40 mg PO DAILY depression #90 tabs 04/12/22 [Rx Last Taken 10/16/22] potassium chloride 20 mEq tablet,extended release(part/cryst) 40 meq (2 x 20 mEq) PO TID potassium 90 days #540 tabs 08/11/22 [Rx Last Taken 10/16/22] ferrous sulfate 325 mg (65 mg iron) tablet 325 mg PO DAILY #90 tabs 08/18/22 [Rx Last Taken 10/16/22] Ozempic 1 mg/dose (4 mg/3 mL) subcutaneous pen injector (semaglutide) 1 mg (0.75mL) subcut QWEEK #3 mL 09/06/22 [Rx Last Taken 10/10/22] blood sugar diagnostic (OneTouch Verio test strips) #100 ea 09/06/22 [Rx Last Taken Unknown] cinacalcet 30 mg tablet 30 mg PO BID #60 tabs 09/06/22 [Rx Last Taken 10/16/22] insulin regular hum U-500 conc 500 unit/mL(3 mL) subcut pen (Humulin R U-500 (Conc) Insulin Kwikpen) 30 unit (0.06 mL) subcut .TIDCM #6 mL 09/06/22 [Rx Last Taken 10/16/22] cholecalciferol (vitamin D3) 1,250 mcg (50,000 unit) capsule 1,250 mcg PO QWEEK #8 caps 09/07/22 [Rx Last Taken 10/10/22] furosemide 20 mg tablet 40 mg (2 x 20 mg) PO BID 90 days #360 tabs 09/09/22 [Rx Last Taken 10/16/22] metoprolol succinate 50 mg tablet,extended release 24 hr 50 mg PO BID BLOOD PRESSURE #180 tabs 09/21/22 [Rx Last Taken 10/16/22] clopidogrel 75 mg tablet 75 mg PO DAILY BLOOD THINNER #90 tabs 10/03/22 [Rx Last Taken 10/16/22] insulin glargine 100 unit/mL (3 mL) subcutaneous pen (Lantus Solostar U-100 Insulin) 10 unit (0.1 mL) subcut DAILY #15 mL 10/18/22 [Rx Last Taken Unknown] tramadol 50 mg tablet 50 mg PO Q6H PRN PRN Pain Score 6-10 3 days #10 tabs 10/18/22 [Rx Last Taken Unknown] acetaminophen 325 mg tablet 650 mg PO Q4H PRN Pain 1-10 Or Fever>100.7 10/20/22 [History Last Taken Unknown] acetaminophen 650 mg rectal suppository 650 mg MA Q4H PRN fever or pain 10/20/22[History Last Taken Unknown] aluminum-magnesium hydroxide 225 mg-200 mg/5 mL oral suspension 30 ml PO DAILY PRN GI DISTRESS 10/20/22 [History Last Taken Unknown] bisacodyl 10 mg rectal suppository 10 mg MA DAILY PRN constipation 10/20/22 [History Last Taken Unknown] dextrose 40 % oral gel (Glucose Gel) 15 g PO Q15M PRN hypoglycemia 10/20/22 [History Last Taken Unknown] fenofibrate micronized 200 mg capsule 200 mg PO DAILY #30 caps 10/20/22 [Rx Last Taken Unknown] glucagon HCl 1 mg solution for injection (Glucagon (HCl) Emergency Kit) 1 mg IM Q20M PRN hypoglycemia 10/20/22 [History Last Taken Unknown] guaifenesin 200 mg/5 mL oral liquid 200 mg PO Q4H PRN congestion 10/20/22 [History Last Taken Unknown] magnesium hydroxide 400 mg/5 mL oral suspension (Milk of Magnesia) 30 ml PO DAILY PRN constipation 10/20/22 [History Last Taken Unknown] sodium phosphates 19 gram-7 gram/118 mL enema (Enema) 118 ml MA DAILY PRN constipation 10/20/22 [History Last Taken Unknown] Allergy/AdvReac Type Severity Reaction Status Date / Time No Known Allergies Allergy Verified 10/20/22 22:49 Family History Mother Colon cancer Sister CAD (coronary artery disease) CABG x 5 Diabetes Myocardial infarction, Onset Age: 67 Father Crohns disease Surgical History History of appendectomy History of appendectomy 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 Smoking Status: Never smoker second hand exposure: Yes alcohol intake: former year quit: 2003 details: Sober since 2003. substance use type: former substance user Date of last use: 04/10/2004 and marijuana caffeine: Yes Type: carbonated beverages Number of servings: 2 and coffee Number of servings: 2 what type of physical activity do you participate in: none ROS ROS ED Constitutional Constitutional ED: Denies chills or fever(s) Eyes Eyes: Denies change in vision ENT ENT ED: Denies rhinorrhea Cardiovascular Cardiovascular: Reports chest pain Respiratory/Chest Respiratory/Chest: Reports cough and dyspnea Gastrointestinal Gastrointestinal: Denies abdominal pain, nausea or vomiting Musculoskeletal Musculoskeletal: Reports other Details: Lower extremity edema ; Denies back pain or neck pain Neurologic Neurologic: Denies headache(s) Psychiatric Psychiatric: Denies anxiety or depression Hematologic/Lymphatic Hematologic/Lymphatic: Denies easy bleeding or easy bruising Allergic/Immunologic Allergic/Immunologic ED: Denies mouth swelling or tongue swelling EXAM Physical Exam Const Vital Signs: 10/20/22 22:50 10/20/22 22:55 10/20/22 23:07 Temperature 97.7 F L Temperature Source Temporal Pulse Rate 75 Respiratory Rate 16 Blood Pressure 179/114 H Blood Pressure Mean 135 Pulse Ox 92 Oxygen Delivery Method Room Air Room Air 10/21/22 01:33 Temperature Temperature Source Pulse Rate 87 Respiratory Rate 24 H Blood Pressure 161/107 H Blood Pressure Mean 125 Pulse Ox 93 Oxygen Delivery Method Positive obese Nutritional Appearance: obese HEENT Reports moist mucous membranes Chest Wall inspection of chest normal and palpation of chest normal Resp normal respiratory effort and clear to auscultation bilaterally Resp Narrative: Diminished at the bilateral bases. Cardio regular rate and regular rhythm GI soft to palpation and non-tender Extremity Extremity Narrative: 3+ bilateral lower extremity edema, symmetric. Neuro oriented x3 and no sensory deficits noted Motor Exam: strength 5/5 throughout Skin no rashes or lesions noted Heart Score History: Slightly/Non-Suspicious ECG: Normal Age: >/= 65 years Risk Factors: >/= 3 Risk Factors or History of CAD Troponin: </= Normal Limit Score: 4 MDM MDM MDM Narrative Medical decision making narrative: Patient placed on shelter monitor. EKG obtained to evaluate for cardiac arrhythmia/ischemia. Labwork obtained to evaluate for leukocytosis, anemia, andelectrolyte derangement. Chest x-ray obtained to evaluate for acute lung pathology, cardiac size, or mediastinal abnormality. History & Record Review Discussion w/independent historian: EMS personnel and Patient Additional record(s) reviewed:: Prior inpatient record, Prior ED visit and Priorlabs Lab Data Attestation: I reviewed the patient's lab results. Labs: Laboratory Results - last 24 hr 10/20/22 23:00 WBC 6.7 RBC 4.09 L Hgb 11.9 L Hct 37.7 L MCV 92.2 MCH 29.1 MCHC 31.6 L RDW Std Deviation 46.5 H RDW Coeff of Thao 13.8 Plt Count 355 MPV 10.3 Immature Gran % (Auto) 0.600 Neut % (Auto) 74.2 H Lymph % (Auto) 9.1 L Alpine % (Auto) 12.7 H Eos % (Auto) 2.7 Baso % (Auto) 0.7 Absolute Neuts (auto) 5.0 Absolute Lymphs (auto) 0.61 L Nucleated RBC % 0 D-Dimer Quant (PE/DVT) 0.70 H* Sodium 139 Potassium 4.6 Chloride 104 Carbon Dioxide 28.0 Anion Gap 7 BUN 32 H Creatinine 1.72 H Estim Creat Clear Calc 44.21 Est GFR (MDRD) Af Amer 51 L Est GFR (MDRD) Non-Af 43 L BUN/Creatinine Ratio 18.6 Glucose 126 H Calcium 12.1 H Troponin I High Sens 29 B-Natriuretic Peptide 225.1 H Radiography Chest X-Ray - ED: 1 View, Read by ED Physician, Chronic Changes and No Infiltrates Diagnostic Testing: Clinical Impression(s) from Imaging Studies Chest X-Ray 10/20/22 23:15 IMPRESSION: No radiographic evidence of acute cardiopulmonary disease. Electronically Signed: Brown Russ MD at 0:21 EDT , Chest CTA 10/21/22 00:03 IMPRESSION: No pulmonary embolism or evidence of acute airspace disease. Nonspecific bilateral hilar adenopathy. Borderline cardiomegaly with mild pulmonary vascular congestion. Electronically Signed: Brown Russ MD at 1:01 EDT , EKG Initial EKG: Attestation: I personally reviewed and interpreted this EKG as follows: Interpretation: Atrial Fibrillation (Atrial fibrillation with a rate of 78bpm. No acute ST change.) Treatment and Re-Evaluation :: Patient's EKG at this time reveals atrial fibrillation. I do not see history ofA-fib in his documentation and patient does not know of a history of A-fib. CBC reveals normal white count at 6.7 with a hemoglobin of 11.9. Chemistry studies reveal a BUN of 32 and a creatinine 1.72. Troponin is 29. His BNP is slightly elevated at 225. His D-dimer is 0.70. Portable chest x-ray per my interpretation feels chronic changes with no focal infiltrate. Radiology interpretation is reviewed. Given the patient's chest pain and elevated D-dimer, he is sent for a CTA of thechest. This reveals no evidence of pulmonary embolism or acute airspace disease. I discussed atrial fibrillation with the patient and he does not believe he has ever been diagnosed with this before. He will be given a dose ofLovenox at this time and discussed with hospitalist given his chest pain and newonset arrhythmia. Addendum: On review of prior EKGs, it appears the patient had an EKG in the cardiology office in May that was read as atrial fibrillation. When he wasrecently in the hospital earlier this month he had an EKG that is read as atrialfibrillation. I do not see atrial fibrillation documented in his history as chronic diagnoses. Discharge Plan Dx/Rx/DC Orders Clinical Impression: Chest pain, Atrial fibrillation Disposition Disposition: Acute Care Hospital [facility] What to do if you have Problems For any increased pain, shortness of breath, bleeding, nausea or vomiting, chestpain, or any unexpected problems, contact your Primary Care Provider. Call [facility] ([phone]) or report to the closest Emergency Room. Call 911 if necessary. 10/21/22 0153 <Electronically signed by Jaja Boudreaux MD> Cosigner Signature (if applicable): CC: Dr. Mery Raymond MD ~ Signed [facility] Work Phone: [phone] 801-555307-11-2023 Discharge summary Author Kingsley Hollis [facility] October 18, 2022 11:31am Note Date/Time October 18, 2022 11:3 1am [facility] Medical Records Department [address] [place] [id number] Discharge Summary 10/18/22 1117 MR#: [id number] Acct: [id number] Name: SHADE TEIXEIRA Praveen Rep #:[id number] : 1955 66 From: Kingsley Deal PCP: Dr. Mery Raymond MD Status:A DM ZARIA Location: [place] [address] Providers Date of Admission: 10/17/22 Date of Discharge: 10/18/22 Primary Care Physician: Dr. Mery Raymond MD Reason For Visit: RIGHT ELBOW AND RIGHT SHOULDER PAIN Diagnosis Discharge Diagnosis (1) Olecranon bursitis: Status: Acute Code(s): M70.20 - Olecranon bursitis, unspecified elbow Qualifiers: Laterality: right Qualified Code(s): M70.21 - Olecranon bursitis, rightelbow (2) Debility: Status: Acute Code(s): R53.81 - Other malaise Plan 66-year-old gentleman was admitted with right upper extremity pain shoulder and elbow radiating to wrist. Denies acute injury. He has difficulty in performingADL. Currently pain is worse at right elbow exacerbated with any type of movement. Right olecranon bursitis Elbow x-ray individually reviewed and shows soft tissue edema and possible hydroxyapatite crystallization/calcified tendinitis. Not enough fluid for aspiration. Patient is started on IV steroid. Low-dose NSAID as anti-inflammatory agent. Discontinue naproxen. Pantoprazole 40 mg daily. As needed Tylenol and ultram ordered ESR is only mildly elevated at 25. CRP of 55.9. Normal white count. 10/14: Patient was treated with NSAID, Mobic 7.5 mg daily for 2 days. Pain is better. Patient is discharged on tramadol. Follow-up with orthopedic surgeon Dr. Holliday in 2 weeks.. Debility and generalized weakness Case management consult PT and OT evaluation. Obstructive sleep apnea/OHS on BiPAP. Patient has morbid obesity BMI 37.5 kg/m?. Patient uses BiPAP at night. Chronic HFpEF and CAD status post stent: Patient had echo in September 2021 reported EF 60%. No major valvular abnormality. Patient follows with Stephanie. He usedto follow Dr. Min retired. Follow with Dr. Alex. 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 Hold metformin. Accu-Chek with correction scale insulin ordered. Glucose 178 in BMP. Lantus insulin ordered. 10/18: Glucoses controlled. Creatinine 1.48. His baseline creatinine varies between 1.5-1.65. Advised follow-up with aircraft painter in 1 month. Patient on diuretic. Hypertension Blood pressure is not within goal Home blood pressure medication continued. As needed hydralazine ordered. Trend blood pressure and adjust blood pressure medications. DVT prophylaxis Subcutaneous Lovenox ordered. Discharge medication reconciliation done. Discharge follow-up instructions completed. Discharge process discussed with the patient and all questions wereanswered to patient's satisfaction. Total time spent, exact 35 minutes on discharge meds reconciliation, examination, coordination of care with nurses and ancillary staff, review of imaging and blood test and discussion with the patient on follow-up instructions. Laboratory Results 10/17/22 00:28: WBC 11.7 H, RBC 4.44 L, Hgb 13.1, Hct 39.3 L, MCV 88.5, MCH 29.5, MCHC 33.3, RDW Std Deviation 43.9, RDW Coeff of Thao 13.5, Plt Count 284, MPV 9.7, Immature Gran % (Auto) 0.600, Neut % (Auto) 84.3 H, Lymph % (Auto) 2.8 L, Alpine % (Auto) 11.7 H, Eos % (Auto) 0.3, Baso % (Auto) 0.3, Absolute Neuts (auto) 9.8 H, Absolute Lymphs (auto) 0.33 L, Nucleated RBC % 0, ESR 25 H, [id number], Potassium 3.2 L, Chloride 103, Carbon Dioxide 24.0, Anion Gap 9, BUN 30 H, Creatinine 1.65 H, Estim Creat Clear Calc 46.09, Est GFR (MDRD) Af Amer 54 L, Est GFR (MDRD) Non-Af 45 L, BUN/Creatinine Ratio 18.2, Glucose 176 H, Lactic Acid 1.4, Uric Acid 6.9, Calcium 10.4 H, C-React Prot Ext Range 55.90 H 10/17/22 04:50: WBC 10.2, RBC 4.22 L, Hgb 12.5 L, Hct 37.6 L, MCV 89.1, MCH 29.6, MCHC 33.2, RDW Std Deviation 44.6 H, RDW Coeff of Thao 13.6, Plt Count 257,MPV 9.3, Immature Gran % (Auto) 0.500, Neut % (Auto) 82.1 H, Lymph % (Auto) 3.6 L, Alpine % (Auto) 13.2 H, Eos % (Auto) 0.3, Baso % (Auto) 0.3, Absolute Neuts (auto) 8.4 H, Absolute Lymphs (auto) 0.37 L, Nucleated RBC % 0, Sodium 140, Potassium 2.7 L*, Chloride 105, Carbon Dioxide 25.0, Anion Gap 10, BUN 28 H, Creatinine 1.51 H, Estim Creat Clear Calc 50.36, Est GFR (MDRD) Af Amer 60, Est GFR (MDRD) Non-Af 49 L, BUN/Creatinine Ratio 18.5, Glucose 178 H, Calcium 10.1 10/17/22 07:55: POC Glucose 167 H Clinical Impression(s) from Imaging Studies Elbow X-Ray 10/17/22 00:15 IMPRESSION: Soft tissue edema and mild mineralization at the triceps insertion of the olecranon. Differential includes hydroxyapatite deposition and calcified tendinitis, sequela of prior injury, or possibly acute avulsion injury if there is history of trauma. Medications at Discharge Home Medications Handicap Placard #1 ea 04/08/20 flash glucose scanning reader (FreeStyle Tiffanie 2 Riparius) #1 ea 02/16/21 flash glucose sensor (FreeStyle Tiffanie 2 Sensor kit) #2 ea 02/16/21 fenofibrate micronized 200 mg capsule 200 mg PO DAILY #30 caps 11/12/21 metformin 1,000 mg tablet 1,000 mg PO BIDCM DIABETES #180 tabs 11/15/21 amlodipine 10 mg tablet 10 mg PO DAILY BLOOD PRESSURE #90 tabs 11/25/21 losartan 25 mg tablet 25 mg PO DAILY #90 tabs 12/06/21 ranolazine 500 mg tablet,extended release,12 hr 500 mg PO BID #180 tabs 01/11/22 nitroglycerin 0.4 mg sublingual tablet See Rx Instructions .Route .COMPLEX #25 tabs 02/22/22 pen needle, diabetic 32 gauge x 5/32 (BD Ultra-Fine Lorie Pen Needle) #360 ea 04/08/22 paroxetine HCl 40 mg tablet 40 mg PO DAILY depression #90 tabs 04/12/22 potassium chloride 20 mEq tablet,extended release(part/cryst) 40 meq (2 x 20 mEq) PO TID potassium 90 days #540 tabs 08/11/22 ferrous sulfate 325 mg (65 mg iron) tablet 325 mg PO DAILY #90 tabs 08/18/22 Ozempic 1 mg/dose (4 mg/3 mL) subcutaneous pen injector (semaglutide) 1 mg (0.75mL) subcut QWEEK #3 mL 09/06/22 blood sugar diagnostic (OneTouch Verio test strips) #100 ea 09/06/22 cinacalcet 30 mg tablet 30 mg PO BID #60 tabs 09/06/22 insulin regular hum U-500 conc 500 unit/mL(3 mL) subcut pen (Humulin R U-500 (Conc) Insulin Kwikpen) 30 unit (0.06 mL) subcut .TIDCM #6 mL 09/06/22 cholecalciferol (vitamin D3) 1,250 mcg (50,000 unit) capsule 1,250 mcg PO QWEEK #8 caps 09/07/22 furosemide 20 mg tablet 40 mg (2 x 20 mg) PO BID 90 days #360 tabs 09/09/22 metoprolol succinate 50 mg tablet,extended release 24 hr 50 mg PO BID BLOOD PRESSURE #180 tabs 09/21/22 clopidogrel 75 mg tablet 75 mg PO DAILY BLOOD THINNER #90 tabs 10/03/22 acetaminophen 325 mg tablet 650 mg (2 x 325 mg) PO Q6H PRN PRN Pain 1-10 Or Fever>100.7 #0 tabs 10/18/22 insulin glargine 100 unit/mL (3 mL) subcutaneous pen (Lantus Solostar U-100 Insulin) 10 unit (0.1 mL) subcut DAILY #15 mL 10/18/22 sennosides 8.6 mg-docusate sodium 50 mg tablet (Stool Softener-Stimulant Laxative) 2 tab PO BID PRN PRN Constipation #0 tabs 10/18/22 tramadol 50 mg tablet 50 mg PO Q6H PRN PRN Pain Score 6-10 3 days #10 tabs 10/18/22 Physical Exam Narrative Patient wears BiPAP at night for sleep apnea. He did not tell me that he has BiPAP at home therefore more short of breath yesterday night. Patient was put on BiPAP. Lasix 20 mg IV was given. D-dimer was negative. Patient breathing much improved. On furosemide 40 mg twice daily. Physical exam: General: Well-nourished, well-developed. Morbid obesity BMI 37.5 kg/m?. HEENT: Atraumatic, PERRLA, EOMI, Normocephalic Oral: No Gingival or Mucosal Lesions/ Ulcerations Neck: Supple, No JVD, Negative Carotid Bruits CVS: Regular rate and rhythm. S1-S2 present. No murmur, gallop or rub. Respiratory : Air entry diminished bilateral lung bases. Mild crepitation. Abdomen: Soft, nontender, nondistended, normal bowel sounds, no palpable mass. : No dysuria. No suprapubic or renal angle tenderness. Extremities spine: Mild bilateral ankle edema. Nontender with full range of motion. No lumbar spine tenderness. Skin: Normal color, no trauma, abrasions Neuro: Alert, oriented, cranial nerves II through XII grossly intact. Psychiatry: Normal mood. Normal affect. Weight / BMI Weight Weight: 261 lb 0.437 oz Body Mass Index (BMI) 37.4 ABG / Lab / Microbiology Data 10/17/22 04:50 10/18/22 06:25 Laboratory: Laboratory Results - last 24 hr 10/17/22 12:11: POC Glucose 189 H 10/17/22 16:52: POC Glucose 174 H 10/17/22 22:50: POC Glucose 100 10/18/22 06:25: Sodium 138, Potassium 3.2 L, Chloride 106, Carbon Dioxide 26.0, Anion Gap 6, BUN 25 H, Creatinine 1.48 H, Estim Creat Clear Calc 51.38, Est GFR (MDRD) Af Amer 61, Est GFR (MDRD) Non-Af 51 L, BUN/Creatinine Ratio 16.9, Glucose 134 H, Calcium 10.4 H Meaningful Use Info Meaningful Use Diagnoses (Choose all that apply): None applicable Discharge Plan Admission Admit Date/Time: 10/17/22 02:32 Primary Reason for Your Visit: Right olecranon bursitis Attending Provider: Kingsley Hollis Primary Care Provider: Mery Raymond Consulting Providers: Lyle Coleman Discharge Orders/Prescriptions Prescriptions: New sennosides-docusate sodium [Stool Softener-Stimulant Laxat] 8.6-50 mg Tablet 2 tab PO BID PRN PRN (Reason: Constipation) Qty: 0 0RF tramadol 50 mg Tablet 50 mg PO Q6H PRN PRN (Reason: Pain Score 6-10) 3 Days Qty: 10 0RF acetaminophen 325 mg Tablet 650 mg PO Q6H PRN PRN (Reason: Pain 1-10 Or Fever>100.7) Qty: 0 0RF insulin glargine [Lantus Solostar U-100 Insulin] 100 unit/mL (3 mL) insulin pen 10 unit subcut DAILY Qty: 15 3RF Rx Instructions: Hold if glucose less than 130 mg/dl Continued (DME) Handicap Placard See Rx Instructions .ROUTE .MEDSUPPLY Qty: 1 0RF Rx Instructions: As directed, length of time 3 years (DME) FreeStyle Tiffanie 2 Riparius [facility] [place] [facility] See Rx Instructions .ROUTE .MEDSUPPLY Qty: 1 0RF Rx Instructions: As directed (DME) FreeStyle Tiffanie 2 Sensor Kit See Rx Instructions .ROUTE .MEDSUPPLY Qty: 2 6RF Rx Instructions: As directed ferrous sulfate 325 mg (65 mg iron) tablet 325 mg PO DAILY Qty: 90 1RF (DME) OneTouch Verio test strips Strip See Rx Instructions .ROUTE .MEDSUPPLY Qty: 100 12RF Rx Instructions: test 3 times daily cinacalcet 30 mg tablet 30 mg PO BID Qty: 60 6RF Humulin R U-500 (Conc) Kwikpen 500 unit/mL (3 mL) insulin pen 30 unit SUBCUT .TIDCM Qty: 6 5RF Ozempic 1 mg/dose (4 mg/3 mL) pen injector 1 mg subcut QWEEK Qty: 3 4RF furosemide 20 mg tablet 40 mg PO BID 90 Days Qty: 360 3RF fenofibrate micronized 200 mg capsule 200 mg PO DAILY Qty: 30 12RF metformin 1,000 mg tablet 1,000 mg PO BIDCM Qty: 180 3RF amlodipine 10 mg tablet 10 mg PO DAILY Qty: 90 3RF ranolazine 500 mg tablet extended release 12 hr 500 mg PO BID Qty: 180 3RF nitroglycerin 0.4 mg tablet, sublingual See Rx Instructions .ROUTE .COMPLEX Qty: 25 10RF Dose Instruction: DISSOLVE 1 TABLET UNDER THE TONGUE NEEDED FOR CHEST PAIN EVERY 5 MINUTES UP TO 3 TIMES. IF NO RELIEF CALL 911. Rx Instructions: DISSOLVE 1 TABLET UNDER THE TONGUE NEEDED FOR CHEST PAIN EVERY 5 MINUTES UP TO 3 TIMES. IF NO RELIEF CALL 911. ([facility] [place]) pen needle, diabetic [BD Ultra-Fine Lorie Pen Needle] 32 gauge x 5/32 needle See Rx Instructions .ROUTE .MEDSUPPLY Qty: 360 5RF Rx Instructions: 4x/day paroxetine HCl 40 mg tablet 40 mg PO DAILY Qty: 90 3RF Rx Instructions: TAKE 1 TABLET BY MOUTH ONCE DAILY potassium chloride 20 mEq tablet,ER particles/crystals 40 meq PO TID 90 Days Qty: 540 1RF Rx Instructions: TAKE 2 TABLETS BY MOUTH THREE TIMES DAILY cholecalciferol (vitamin D3) 1,250 mcg (50,000 unit) capsule 1,250 mcg PO QWEEK Qty: 8 6RF metoprolol succinate 50 mg tablet extended release 24 hr 50 mg PO BID Qty: 180 3RF clopidogrel 75 mg tablet 75 mg PO DAILY Qty: 90 3RF Held losartan 25 mg tablet 25 mg PO DAILY Qty: 90 3RF Hold Instructions: Hold for 5 days. Discontinued naproxen sodium [Aleve] 220 mg tablet 220 mg PO BID PRN (Reason: pain) Referrals / Follow Up: Chema Alex MD [Med Staff - Active Staff] - Within 1 Month Mery Raymond MD [Primary Care Provider] - Yaima Zaragoza MD [Med Staff - Consulting] - Within 1 Month (for CKD on diuretics) Narendra Gary DO [Med Staff - Active Staff] - Within 2 Weeks (for right elbow olecranon bursitis) Disposition Disposition (needs filled in before D/C Order can be placed): Group Home Facility Charges/Coding Visit Charges Inpatient E&M: 03693 Disch Hosp >30min 10/18/22 1131 <Electronically signed by Kingsley Hollis MD> Cosigner Signature (if applicable): CC: Dr. Mery Raymond MD; Dr. Kingsley Hollis MD~ Signed [facility] Work Phone: [phone] Progress note Author Kingsley Hollis [facility] October 18, 2022 11:31am Note Date/Time October 17, 2022 7:54 am [facility] Medical Records Department [address] [place] [address] Progress Note - Hospitalist 10/17/22 0745 MR#: [id number] Acct: [id number] Name: SHADE TEIXEIRA Praveen Rep #:[id number] : 1955 66 From: Kingsley Deal PCP: Dr. Mery Raymond MD Status:A DM ZARIA Location: IN3 [id number] Reason for Visit Reason for Visit: Diagnoses Olecranon bursitis, right elbow (10/17/22) Other malaise (10/17/22) Objective Data Objective Data Vital Signs: Vital Signs Temp Pulse Resp BP Pulse Ox O2 Del Method 98.5 F 83 18 131/71 H 94 Room Air 10/17/22 04:12 10/17/22 04:12 10/17/22 04:12 10/17/22 04:12 10/17/22 04:12 10/17/22 04:12 Oxygen Delivery Method Room Air Weight: 261 lb 0.437 oz Body Mass Index (BMI) 37.4 Intake & Output: Intake and Output for Last 24 Hours 10/15/22 10/16/22 10/17/22 23:59 23:59 23:59 Intake Total 200 / 200 Balance 200 / 200 Lab / Micro Data 10/17/22 04:50 10/17/22 04:50 Labs: Laboratory Results - last 24 hr 10/17/22 00:28: WBC 11.7 H, RBC 4.44 L, Hgb 13.1, Hct 39.3 L, MCV 88.5, MCH 29.5, MCHC 33.3, RDW Std Deviation 43.9, RDW Coeff of Thao 13.5, Plt Count 284, MPV 9.7, Immature Gran % (Auto) 0.600, Neut % (Auto) 84.3 H, Lymph % (Auto) 2.8 L, Alpine % (Auto) 11.7 H, Eos % (Auto) 0.3, Baso % (Auto) 0.3, Absolute Neuts (auto) 9.8 H, Absolute Lymphs (auto) 0.33 L, Nucleated RBC % 0, ESR 25 H, [id number], Potassium 3.2 L, Chloride 103, Carbon Dioxide 24.0, Anion Gap 9, BUN 30 H, Creatinine 1.65 H, Estim Creat Clear Calc 46.09, Est GFR (MDRD) Af Amer 54 L, Est GFR (MDRD) Non-Af 45 L, BUN/Creatinine Ratio 18.2, Glucose 176 H, Lactic Acid 1.4, Uric Acid 6.9, Calcium 10.4 H, C-React Prot Ext Range 55.90 H 10/17/22 04:50: WBC 10.2, RBC 4.22 L, Hgb 12.5 L, Hct 37.6 L, MCV 89.1, MCH 29.6, MCHC 33.2, RDW Std Deviation 44.6 H, RDW Coeff of Thao 13.6, Plt Count 257,MPV 9.3, Immature Gran % (Auto) 0.500, Neut % (Auto) 82.1 H, Lymph % (Auto) 3.6 L, Alpine % (Auto) 13.2 H, Eos % (Auto) 0.3, Baso % (Auto) 0.3, Absolute Neuts (auto) 8.4 H, Absolute Lymphs (auto) 0.37 L, Nucleated RBC % 0, Sodium 140, Potassium 2.7 L*, Chloride 105, Carbon Dioxide 25.0, Anion Gap 10, BUN 28 H, Creatinine 1.51 H, Estim Creat Clear Calc 50.36, Est GFR (MDRD) Af Amer 60, Est GFR (MDRD) Non-Af 49 L, BUN/Creatinine Ratio 18.5, Glucose 178 H, Calcium 10.1 Radiography Diagnostic Testing: Radiology Impression Elbow X-Ray 10/17/22 00:15 IMPRESSION: Soft tissue edema and mild mineralization at the triceps insertion of the olecranon. Differential includes hydroxyapatite deposition and calcified tendinitis, sequela of prior injury, or possibly acute avulsion injury if there is history of trauma. Electronically Signed: Brown Russ MD at 1:00 EDT , Assessment & Plan Assessment/Plan (1) Olecranon bursitis: QUALIFIERS: Laterality: right Qualified Code(s): M70.21 - Olecranon bursitis, right elbow (2) Debility: PLAN: Plan 66-year-old gentleman was admitted with right upper extremity pain shoulder and elbow radiating to wrist. Denies acute injury. He has difficulty in performingADL. Currently pain is worse at right elbow exacerbated with any type of movement. Right olecranon bursitis Elbow x-ray individually reviewed and shows soft tissue edema and possible hydroxyapatite crystallization/calcified tendinitis. Not enough fluid for aspiration. Patient is started on IV steroid. Low-dose NSAID as anti-inflammatory agent. Discontinue naproxen. Pantoprazole 40 mg daily. As needed Tylenol and ultram ordered ESR is only mildly elevated at 25. CRP of 55.9. Normal white count. Debility and generalized weakness Case management consult PT and OT evaluation. Diabetes mellitus type II Blood glucose is not at goal. Hold metformin. Accu-Chek with correction scale insulin ordered. Glucose 178 in BMP. Lantus insulin ordered. Hypertension Blood pressure is not within goal Home blood pressure medication continued. As needed hydralazine ordered. Trend blood pressure and adjust blood pressure medications. DVT prophylaxis Subcutaneous Lovenox ordered. Laboratory Results 10/17/22 00:28: WBC 11.7 H, RBC 4.44 L, Hgb 13.1, Hct 39.3 L, MCV 88.5, MCH 29.5, MCHC 33.3, RDW Std Deviation 43.9, RDW Coeff of Thao 13.5, Plt Count 284, MPV 9.7, Immature Gran % (Auto) 0.600, Neut % (Auto) 84.3 H, Lymph % (Auto) 2.8 L, Alpine % (Auto) 11.7 H, Eos % (Auto) 0.3, Baso % (Auto) 0.3, Absolute Neuts (auto) 9.8 H, Absolute Lymphs (auto) 0.33 L, Nucleated RBC % 0, ESR 25 H, [id number], Potassium 3.2 L, Chloride 103, Carbon Dioxide 24.0, Anion Gap 9, BUN 30 H, Creatinine 1.65 H, Estim Creat Clear Calc 46.09, Est GFR (MDRD) Af Amer 54 L, Est GFR (MDRD) Non-Af 45 L, BUN/Creatinine Ratio 18.2, Glucose 176 H, Lactic Acid 1.4, Uric Acid 6.9, Calcium 10.4 H, C-React Prot Ext Range 55.90 H 10/17/22 04:50: WBC 10.2, RBC 4.22 L, Hgb 12.5 L, Hct 37.6 L, MCV 89.1, MCH 29.6, MCHC 33.2, RDW Std Deviation 44.6 H, RDW Coeff of Thao 13.6, Plt Count 257,MPV 9.3, Immature Gran % (Auto) 0.500, Neut % (Auto) 82.1 H, Lymph % (Auto) 3.6 L, Alpine % (Auto) 13.2 H, Eos % (Auto) 0.3, Baso % (Auto) 0.3, Absolute Neuts (auto) 8.4 H, Absolute Lymphs (auto) 0.37 L, Nucleated RBC % 0, Sodium 140, Potassium 2.7 L*, Chloride 105, Carbon Dioxide 25.0, Anion Gap 10, BUN 28 H, Creatinine 1.51 H, Estim Creat Clear Calc 50.36, Est GFR (MDRD) Af Amer 60, Est GFR (MDRD) Non-Af 49 L, BUN/Creatinine Ratio 18.5, Glucose 178 H, Calcium 10.1 10/17/22 07:55: POC Glucose 167 H Clinical Impression(s) from Imaging Studies Elbow X-Ray 10/17/22 00:15 IMPRESSION: Soft tissue edema and mild mineralization at the triceps insertion of the olecranon. Differential includes hydroxyapatite deposition and calcified tendinitis, sequela of prior injury, or possibly acute avulsion injury if there is history of trauma. Charges/Coding Visit Charges Inpatient E&M: 98835 Subs Hosp L2 10/17/22 1337 <Electronically signed by Kingsley Hollis MD> Cosigner Signature (if applicable): CC: ~ Signed ADDENDUM by Dr. Kingsley Hollis MD on 10/18/22 at 1131 Addendum Physical exam: General: Alert awake oriented x3. Morbid obesity BMI 37.5 kg/m?. HEENT: Atraumatic, PERRLA, EOMI, Normocephalic Oral: Oral mucosa moist. No Gingival or Mucosal Lesions/ Ulcerations Neck: Supple, No JVD, Negative Carotid Bruits CVS: Regular rate and rhythm. S1-S2 present. No murmur, gallop or rub. Respiratory : Air entry diminished bilateral lung bases. Mild inspiratory crepitations. Abdomen: Soft, nontender, nondistended, normal bowel sounds, no palpable mass. : No dysuria. No suprapubic or renal angle tenderness. Extremities spine: Mild bilateral ankle edema. Nontender with full range of motion. No lumbar spine tenderness. Skin: Normal color, no trauma, abrasions Neuro: Alert, oriented, cranial nerves II through XII grossly intact. Psychiatry: Normal mood. Normal affect. 10/18/22 1131<Electronically signed by Kingsley Hollis MD> Cosigner Signature (if applicable): cc: ~* Signed [facility] Work Phone: 1(851) 407-528007-11-2023 Discharge summary Author Kingsley Hollis [facility] October 18, 2022 11:17am Note Date/Time October 18, 2022 11:0 6am [facility] Medical Records Department [address] [place] [address] Transfer to [facility] MR#: [id number] Acct: [id number] Name: SHADE TEIXEIRA Rep #:[id number] : 1955 66 From: Kingsley Deal PCP: Dr. Mery Raymond MD Status:A DM ZARIA Certification of patient admission REQUIRED AT TIME OF ADMISSION. I CERTIFY THAT POST-HOSPITAL ECF SERVICES ARE REQUIRED TO BE GIVEN ON AN IN-PATIENT BASIS BECAUSE OF THE ABOVE NAMED PATIENT'S NEED FOR [facility] CARE ON A CONTINUING BASIS FOR THE CONDITION(S) FOR WHICH HE/SHE WAS RECEIVING IN-PATIENT HOSPITAL SERVICES PRIOR TO HIS/HER TRANSFER TO THE F. 10/18/22 1116<Electronically signed by Kingsley Hollis MD> Diet Diet Order/Speech Therapy: 10/17/22 03:52 Diet: Cardiac - Heart Healthy Food consistency:: Regular Liquid Consistency:: Regular/Thin Routine Orders/Code Status Suppository Type: Dulcolax 10mg Suppository Frequency: Daily PRN Routine Lab Work: BMP (in 1 week) Code Status: Full Code Therapies Weight Bearing: Weight bearing as tolerated Extremity Affected:: Bilateral Upper Physical Therapy: Eval and Treat Occupational Therapy: Eval and Treat Speech Therapy: Eval and Treat Problem/Diagnosis (1) Olecranon bursitis: Status: Acute Code(s): M70.20 - Olecranon bursitis, unspecified elbow (2) Debility: Status: Acute Code(s): R53.81 - Other malaise Plan 66-year-old gentleman was admitted with right upper extremity pain shoulder and elbow radiating to wrist. Denies acute injury. He has difficulty in performingADL. Currently pain is worse at right elbow exacerbated with any type of movement. Right olecranon bursitis Elbow x-ray individually reviewed and shows soft tissue edema and possible hydroxyapatite crystallization/calcified tendinitis. Not enough fluid for aspiration. Patient is started on IV steroid. Low-dose NSAID as anti-inflammatory agent. Discontinue naproxen. Pantoprazole 40 mg daily. As needed Tylenol and ultram ordered ESR is only mildly elevated at 25. CRP of 55.9. Normal white count. Debility and generalized weakness Case management consult PT and OT evaluation. Diabetes mellitus type II Blood glucose is not at goal. Hold metformin. Accu-Chek with correction scale insulin ordered. Glucose 178 in BMP. Lantus insulin ordered. Hypertension Blood pressure is not within goal Home blood pressure medication continued. As needed hydralazine ordered. Trend blood pressure and adjust blood pressure medications. DVT prophylaxis Subcutaneous Lovenox ordered. Laboratory Results 10/17/22 00:28: WBC 11.7 H, RBC 4.44 L, Hgb 13.1, Hct 39.3 L, MCV 88.5, MCH 29.5, MCHC 33.3, RDW Std Deviation 43.9, RDW Coeff of Thao 13.5, Plt Count 284, MPV 9.7, Immature Gran % (Auto) 0.600, Neut % (Auto) 84.3 H, Lymph % (Auto) 2.8 L, Alpine % (Auto) 11.7 H, Eos % (Auto) 0.3, Baso % (Auto) 0.3, Absolute Neuts (auto) 9.8 H, Absolute Lymphs (auto) 0.33 L, Nucleated RBC % 0, ESR 25 H, [id number], Potassium 3.2 L, Chloride 103, Carbon Dioxide 24.0, Anion Gap 9, BUN 30 H, Creatinine 1.65 H, Estim Creat Clear Calc 46.09, Est GFR (MDRD) Af Amer 54 L, Est GFR (MDRD) Non-Af 45 L, BUN/Creatinine Ratio 18.2, Glucose 176 H, Lactic Acid 1.4, Uric Acid 6.9, Calcium 10.4 H, C-React Prot Ext Range 55.90 H 10/17/22 04:50: WBC 10.2, RBC 4.22 L, Hgb 12.5 L, Hct 37.6 L, MCV 89.1, MCH 29.6, MCHC 33.2, RDW Std Deviation 44.6 H, RDW Coeff of Thao 13.6, Plt Count 257,MPV 9.3, Immature Gran % (Auto) 0.500, Neut % (Auto) 82.1 H, Lymph % (Auto) 3.6 L, Alpine % (Auto) 13.2 H, Eos % (Auto) 0.3, Baso % (Auto) 0.3, Absolute Neuts (auto) 8.4 H, Absolute Lymphs (auto) 0.37 L, Nucleated RBC % 0, Sodium 140, Potassium 2.7 L*, Chloride 105, Carbon Dioxide 25.0, Anion Gap 10, BUN 28 H, Creatinine 1.51 H, Estim Creat Clear Calc 50.36, Est GFR (MDRD) Af Amer 60, Est GFR (MDRD) Non-Af 49 L, BUN/Creatinine Ratio 18.5, Glucose 178 H, Calcium 10.1 10/17/22 07:55: POC Glucose 167 H Clinical Impression(s) from Imaging Studies Elbow X-Ray 10/17/22 00:15 IMPRESSION: Soft tissue edema and mild mineralization at the triceps insertion of the olecranon. Differential includes hydroxyapatite deposition and calcified tendinitis, sequela of prior injury, or possibly acute avulsion injury if there is history of trauma. Allergies/Procedures Done in Hospital Allergies No Known Allergies Allergy (Verified 10/16/22 23:44) Type of Care/Length of Stay Estimated LOS: Convalescent Care Less Than 30 days Type of Care Needed: Skilled Rehab Potential: Good Prognosis: Good Additional Orders/Day of Discharge Day of Discharge: 10/18/22 Discharge Plan Admission Admit Date/Time: 10/17/22 02:32 Primary Reason for Your Visit: Right olecranon bursitis Attending Provider: Kingsley Hollis Primary Care Provider: Mery Raymond Consulting Providers: Lyle Coleman Discharge Orders/Prescriptions Prescriptions: New sennosides-docusate sodium [Stool Softener-Stimulant Laxat] 8.6-50 mg Tablet 2 tab PO BID PRN PRN (Reason: Constipation) Qty: 0 0RF tramadol 50 mg Tablet 50 mg PO Q6H PRN PRN (Reason: Pain Score 6-10) 3 Days Qty: 10 0RF acetaminophen 325 mg Tablet 650 mg PO Q6H PRN PRN (Reason: Pain 1-10 Or Fever>100.7) Qty: 0 0RF insulin glargine [Lantus Solostar U-100 Insulin] 100 unit/mL (3 mL) insulin pen 10 unit subcut DAILY Qty: 15 3RF Rx Instructions: Hold if glucose less than 130 mg/dl Continued (DME) Handicap Placard See Rx Instructions .ROUTE .MEDSUPPLY Qty: 1 0RF Rx Instructions: As directed, length of time 3 years (DME) FreeStyle Tiffanie 2 Riparius Misc See Rx Instructions .ROUTE .MEDSUPPLY Qty: 1 0RF Rx Instructions: As directed (DME) FreeStyle Tiffanie 2 Sensor Kit See Rx Instructions .ROUTE .MEDSUPPLY Qty: 2 6RF Rx Instructions: As directed ferrous sulfate 325 mg (65 mg iron) tablet 325 mg PO DAILY Qty: 90 1RF (DME) OneTouch Verio test strips Strip See Rx Instructions .ROUTE .MEDSUPPLY Qty: 100 12RF Rx Instructions: test 3 times daily cinacalcet 30 mg tablet 30 mg PO BID Qty: 60 6RF Humulin R U-500 (Conc) Kwikpen 500 unit/mL (3 mL) insulin pen 30 unit SUBCUT .TIDCM Qty: 6 5RF Ozempic 1 mg/dose (4 mg/3 mL) pen injector 1 mg subcut QWEEK Qty: 3 4RF furosemide 20 mg tablet 40 mg PO BID 90 Days Qty: 360 3RF fenofibrate micronized 200 mg capsule 200 mg PO DAILY Qty: 30 12RF metformin 1,000 mg tablet 1,000 mg PO BIDCM Qty: 180 3RF amlodipine 10 mg tablet 10 mg PO DAILY Qty: 90 3RF ranolazine 500 mg tablet extended release 12 hr 500 mg PO BID Qty: 180 3RF nitroglycerin 0.4 mg tablet, sublingual See Rx Instructions .ROUTE .COMPLEX Qty: 25 10RF Dose Instruction: DISSOLVE 1 TABLET UNDER THE TONGUE NEEDED FOR CHEST PAIN EVERY 5 MINUTES UP TO 3 TIMES. IF NO RELIEF CALL 911. Rx Instructions: DISSOLVE 1 TABLET UNDER THE TONGUE NEEDED FOR CHEST PAIN EVERY 5 MINUTES UP TO 3 TIMES. IF NO RELIEF CALL 911. (DME) pen needle, diabetic [BD Ultra-Fine Lorie Pen Needle] 32 gauge x 5/32 needle See Rx Instructions .ROUTE .MEDSUPPLY Qty: 360 5RF Rx Instructions: 4x/day paroxetine HCl 40 mg tablet 40 mg PO DAILY Qty: 90 3RF Rx Instructions: TAKE 1 TABLET BY MOUTH ONCE DAILY potassium chloride 20 mEq tablet,ER particles/crystals 40 meq PO TID 90 Days Qty: 540 1RF Rx Instructions: TAKE 2 TABLETS BY MOUTH THREE TIMES DAILY cholecalciferol (vitamin D3) 1,250 mcg (50,000 unit) capsule 1,250 mcg PO QWEEK Qty: 8 6RF metoprolol succinate 50 mg tablet extended release 24 hr 50 mg PO BID Qty: 180 3RF clopidogrel 75 mg tablet 75 mg PO DAILY Qty: 90 3RF Held losartan 25 mg tablet 25 mg PO DAILY Qty: 90 3RF Hold Instructions: Hold for 5 days. Discontinued naproxen sodium [Aleve] 220 mg tablet 220 mg PO BID PRN (Reason: pain) Referrals / Follow Up: Mery Raymond MD [Primary Care Provider] - Chema Alex MD [Med Staff - Active Staff] - Within 1 Month Yaima Zaragoza MD [Med Staff - Consulting] - Within 1 Month (for CKD on diuretics) Disposition Disposition (needs filled in before D/C Order can be placed): Group Home Facility (1) Olecranon bursitis Qualifiers: Laterality: right Qualified Code(s): M70.21 - Olecranon bursitis, right elbow 10/18/22 1116 <Electronically signed by Kingsley Hollis MD> Cosigner Signature (if applicable): CC: Dr. Mery Raymond MD; Dr. Lyle Coleman MD ~ ADDENDUM by Dr. Kingsley Hollis MD on 10/18/22 at 1117 Addendum Bipap at night and during naps 10/18/22 1117 <Electronically signed by Kingsley Hollis MD> cc: Dr. Mery Raymond MD; Dr. Lyle Coleman MD ~* Signed [facility] Work Phone: 1(125) 915-971707-10-2023 History and physical note Author Lyle Coleman [facility] October 17, 2022 5:24am Note Date/Time October 17, 2022 3:32 am [facility] Medical Records Department [address] [place] [address] [place] [address] H&P Exam - Hospitalist 07/10/23 0332 MR#: [id number] Acct: [id number] Name: SHADE TEIXEIRA Rep #:[id number] : 1955 66 From: Lyle Coleman MD PCP: Dr. Mery Raymond MD Status:A DM ZARIA Location: [facility] [place] [id number] HPI - General General Date of Admission: 10/17/22 Date of Service: 10/17/22 Chief Complaint: Right shoulder and right elbow pain HPI Narrative SHADE TEIXEIRA, is a 66 M with a significant history of Vertigo; type 2 diabetes mellitus; DVT; and PE who presents to the emergency department with excruciatingpain in his right shoulder and in his right elbow. The pain is aggravated by movement and is improved by rest. Patient over symptoms is general weakness. Of note when patient was walking to the paramedics vehicle he fell. He attributes his falls to weakness. In the past patient spent some time at the rehabilitation. At this time patientis unable to take care of himself. [facility] Medical History Abnormal chest xray Acquired left ventricular hypertrophy Acute diverticulitis Adult failure to thrive Anemia Anxiety and depression Arthritis Atherosclerosis of coronary artery of [place] heart without angina pectoris Chest discomfort Chronic hypoxemic respiratory failure Chronic pain of both knees Colon cancer screening Dark stools Debility Diabetes Diabetes Diabetes Dyspnea on exertion Epistaxis Essential (primary) hypertension Fatigue Flu vaccine need Generalized weakness Health care maintenance History of DVT (deep vein thrombosis) History of pulmonary embolism Hypercalcemia Hypercalcemia Hyperparathyroidism Hypertension Hypertriglyceridemia Hypoxia Irregular heart beat Morbid obesity with BMI of 40.0-44.9, adult Near syncope Obesity FAVIAN (obstructive sleep apnea) Osteoarthritis Primary hyperparathyroidism Pulmonary embolism Pure hypercholesterolemia Seizures Shortness of breath Type 2 diabetes mellitus Vertigo Home Medications Handicap Placard #1 ea 04/08/20 [Rx Last Taken Unknown] flash glucose scanning reader (FreeStyle Tiffanie 2 Riparius) #1 ea 02/16/21 [Rx Last Taken Unknown] flash glucose sensor (FreeStyle Tiffanie 2 Sensor kit) #2 ea 02/16/21 [Rx Last Taken Unknown] fenofibrate micronized 200 mg capsule 200 mg PO DAILY #30 caps 11/12/21 [Rx Last Taken 10/16/22] metformin 1,000 mg tablet 1,000 mg PO BIDCM DIABETES #180 tabs 11/15/21 [Rx Last Taken 10/16/22] amlodipine 10 mg tablet 10 mg PO DAILY BLOOD PRESSURE #90 tabs 11/25/21 [Rx Last Taken 10/16/22] losartan 25 mg tablet 25 mg PO DAILY #90 tabs 12/06/21 [Rx Last Taken 10/16/22] ranolazine 500 mg tablet,extended release,12 hr 500 mg PO BID #180 tabs 01/11/22[Rx Last Taken 10/16/22] nitroglycerin 0.4 mg sublingual tablet See Rx Instructions .Route .COMPLEX #25 tabs 02/22/22 [Rx Last Taken Unknown] pen needle, diabetic 32 gauge x 5/32 (BD Ultra-Fine Lorie Pen Needle) #360 ea 04/08/22 [Rx Last Taken Unknown] paroxetine HCl 40 mg tablet 40 mg PO DAILY depression #90 tabs 04/12/22 [Rx Last Taken 10/16/22] naproxen sodium 220 mg tablet (Aleve) 220 mg PO BID PRN pain 04/14/22 [History Last Taken Unknown] potassium chloride 20 mEq tablet,extended release(part/cryst) 40 meq (2 x 20 mEq) PO TID potassium 90 days #540 tabs 08/11/22 [Rx Last Taken 10/16/22] ferrous sulfate 325 mg (65 mg iron) tablet 325 mg PO DAILY #90 tabs 08/18/22 [Rx Last Taken 10/16/22] Ozempic 1 mg/dose (4 mg/3 mL) subcutaneous pen injector (semaglutide) 1 mg (0.75mL) subcut QWEEK #3 mL 09/06/22 [Rx Last Taken 10/10/22] blood sugar diagnostic (OneTouch Verio test strips) #100 ea 09/06/22 [Rx Last Taken Unknown] cinacalcet 30 mg tablet 30 mg PO BID #60 tabs 09/06/22 [Rx Last Taken 10/16/22] insulin regular hum U-500 conc 500 unit/mL(3 mL) subcut pen (Humulin R U-500 (Conc) Insulin Kwikpen) 30 unit (0.06 mL) subcut .TIDCM #6 mL 09/06/22 [Rx Last Taken 10/16/22] cholecalciferol (vitamin D3) 1,250 mcg (50,000 unit) capsule 1,250 mcg PO QWEEK #8 caps 09/07/22 [Rx Last Taken 10/10/22] furosemide 20 mg tablet 40 mg (2 x 20 mg) PO BID 90 days #360 tabs 09/09/22 [Rx Last Taken 10/16/22] metoprolol succinate 50 mg tablet,extended release 24 hr 50 mg PO BID BLOOD PRESSURE #180 tabs 09/21/22 [Rx Last Taken 10/16/22] clopidogrel 75 mg tablet 75 mg PO DAILY BLOOD THINNER #90 tabs 10/03/22 [Rx Last Taken 10/16/22] Allergy/AdvReac Type Severity Reaction Status Date / Time No Known Allergies Allergy Verified 10/16/22 23:44 Family History Mother Colon cancer Sister CAD (coronary artery disease) CABG x 5 Diabetes Myocardial infarction, Onset Age: 67 Father Crohns disease Surgical History History of appendectomy History of appendectomy 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 Smoking Status: Never smoker second hand exposure: Yes alcohol intake: former year quit: 2003 details: Sober since 2003. substance use type: former substance user Date of last use: 04/10/2004 and marijuana caffeine: Yes Type: carbonated beverages Number of servings: 2 and coffee Number of servings: 2 what type of physical activity do you participate in: none ROS ROS Narrative Pertinent positives and pertinent negatives as noted in HPI. All other systems were reviewed and are negative Vital Signs Vital Signs Vital Signs: 10/16/22 23:45 10/17/22 02:47 Temperature 98.3 F 98.2 F Temperature Source Temporal Oral Pulse Rate 94 79 Respiratory Rate 18 15 Blood Pressure 186/87 H 171/97 H Blood Pressure Mean 120 121 Pulse Ox 93 92 Oxygen Delivery Method Room Air Room Air Weight Weight: 119.7 kg Body Mass Index (BMI) 37.8 Physical Exam Narrative Physical exam: General: Well-nourished, well-developed. Head: Normocephalic, atraumatic, no tenderness Eyes: Vision is grossly intact. EOMI ENT, no trauma, moist mucous membranes, no rhinorrhea Neck: Nontender, No thyromegaly. CVS: Regular rate and rhythm. S1-S2 present. No murmur, gallop or rub. Respiratory : clear to auscultation bilaterally, chest wall nontender Abdomen: Soft, nontender, nondistended, normal bowel sounds, no masses : Deferred Back: Nontender, no CVA tenderness, no midline spinal tenderness, deformities, step-offs Extremities: Nontender full range of motion, no trauma Skin: Normal color, no trauma, abrasions Neuro: Alert, oriented, cranial nerves II through XII grossly intact. Psychiatry: Normal mood. Normal affect. Not depressed. Not anxious. Results Lab / Micro Data 10/17/22 00:28 10/17/22 00:28 Labs: Laboratory Results - last 24 hr 10/17/22 00:28: WBC 11.7 H, RBC 4.44 L, Hgb 13.1, Hct 39.3 L, MCV 88.5, MCH 29.5, MCHC 33.3, RDW Std Deviation 43.9, RDW Coeff of Thao 13.5, Plt Count 284, MPV 9.7, Immature Gran % (Auto) 0.600, Neut % (Auto) 84.3 H, Lymph % (Auto) 2.8 L, Alpine % (Auto) 11.7 H, Eos % (Auto) 0.3, Baso % (Auto) 0.3, Absolute Neuts (auto) 9.8 H, Absolute Lymphs (auto) 0.33 L, Nucleated RBC % 0, ESR 25 H, [id number], Potassium 3.2 L, Chloride 103, Carbon Dioxide 24.0, Anion Gap 9, BUN 30 H, Creatinine 1.65 H, Estim Creat Clear Calc 46.09, Est GFR (MDRD) Af Amer 54 L, Est GFR (MDRD) Non-Af 45 L, BUN/Creatinine Ratio 18.2, Glucose 176 H, Lactic Acid 1.4, Uric Acid 6.9, Calcium 10.4 H, C-React Prot Ext Range 55.90 H Radiology Impression Elbow X-Ray 10/17/22 00:15 IMPRESSION: Soft tissue edema and mild mineralization at the triceps insertion of the olecranon. Differential includes hydroxyapatite deposition and calcified tendinitis, sequela of prior injury, or possibly acute avulsion injury if there is history of trauma. Electronically Signed: Brown Russ MD at 1:00 EDT , Assessment & Plan Assessment/Plan (1) Olecranon bursitis: QUALIFIERS: Laterality: right Qualified Code(s): M70.21 - Olecranon bursitis, right elbow (2) Debility: PLAN: Plan Right olecranon bursitis Elbow x-ray per radiology interpretation: Soft tissue edema and mild mineralization at the triceps insertion of the olecranon. Elbow x-ray was visualized and independently interpreted and hospitalist agrees with emergency petition. We will start patient on steroids. As needed Tylenol and ultram ordered ESR is only mildly elevated at 25. CRP of 55.9. Normal white count. Trend CBC. Debility and generalized weakness Case management consult PT and OT evaluation. Diabetes mellitus Blood glucose is not not treating goal. Hold basal insulin continued. Hold metformin. Accu-Chek with correction scale insulin ordered. Hypertension Blood pressure is not within goal Home blood pressure medication continued. As needed hydralazine ordered. Trend blood pressure and adjust blood pressure medications. DVT prophylaxis Subcutaneous Lovenox ordered. Time spent in the patient's overall evaluation,decision-making process, review of diagnostic data, adjustment of management, discussion with other providers, nursing nursing and ancillary staff involved in patient's care documentation, 56minutes. 10/17/22523 <Electronically signed by Lyle Coleman MD> Cosigner Signature (if applicable): CC: Dr. Mery Raymond MD; Dr. Lyle Coleman MD~ Signed [facility] Work Phone: 1(648) 472-501007-10-2023 Discharge summary Author Marco Lara [facility] October 17, 2022 3:51am Note Date/Time October 17, 2022 2:39 am [facility] Medical Records Department [address] [place] [address] Emergency Department Summary 10/17/22 MR#: [id number] Acct: [id number] Name: SHADE TEIXEIRA Rep #:[id number] : 1955 66 From: Marco Lara DO PCP: Dr. Mery Raymond MD Status:A DM ZARIA Location: [place] [address] HPI History of Present Illness Chief Complaint: Upper Extremity Injury Informant: patient Narrative Narrative: Patient is a 66-year-old male with past medical history of hypertension hyperlipidemia coronary artery disease type 2 diabetes and renal insufficiency. He states that he had to be in a rehab facility at 1 point to help regain strength and after returning home he had a family member who was living with himat that time to help with ADLs. He states that that family recently moved out and he has been stuck trying to perform ADLs on his own. He states that he doesnot have the strength or have ability of doing this. He reports that he has been having to use both arms quite often to pull or push himself off the couch or bed. He denies any recent trauma but states he noticed some pain in his right shoulder last night. He states that pain resolved but he developed pain in his right elbow is worse with any type of motion. Therefore with the increased pain fact he feels generally weak and has difficulty performing his ADLs EMS was called to bring him in for evaluation [facility] Medical History Abnormal chest xray Acquired left ventricular hypertrophy Acute diverticulitis Adult failure to thrive Anemia Anxiety and depression Arthritis Atherosclerosis of coronary artery of [place] heart without angina pectoris Chest discomfort Chronic hypoxemic respiratory failure Chronic pain of both knees Colon cancer screening Dark stools Debility Diabetes Diabetes Diabetes Dyspnea on exertion Epistaxis Essential (primary) hypertension Fatigue Flu vaccine need Generalized weakness Health care maintenance History of DVT (deep vein thrombosis) History of pulmonary embolism Hypercalcemia Hypercalcemia Hyperparathyroidism Hypertension Hypertriglyceridemia Hypoxia Irregular heart beat Morbid obesity with BMI of 40.0-44.9, adult Near syncope Obesity FAVIAN (obstructive sleep apnea) Osteoarthritis Primary hyperparathyroidism Pulmonary embolism Pure hypercholesterolemia Seizures Shortness of breath Type 2 diabetes mellitus Vertigo Home Medications Handicap Placard #1 ea 04/08/20 [Rx Last Taken Unknown] flash glucose scanning reader ([employer] Tiffanie 2 Riparius) #1 ea 02/16/21 [Rx Last Taken Unknown] flash glucose sensor (FreeStyle Tiffanie 2 Sensor kit) #2 ea 02/16/21 [Rx Last Taken Unknown] fenofibrate micronized 200 mg capsule 200 mg PO DAILY #30 caps 11/12/21 [Rx Last Taken Unknown] metformin 1,000 mg tablet 1,000 mg PO BIDCM DIABETES #180 tabs 11/15/21 [Rx Last Taken Unknown] amlodipine 10 mg tablet 10 mg PO DAILY BLOOD PRESSURE #90 tabs 11/25/21 [Rx Last Taken Unknown] losartan 25 mg tablet 25 mg PO DAILY #90 tabs 12/06/21 [Rx Last Taken Unknown] ranolazine 500 mg tablet,extended release,12 hr 500 mg PO BID #180 tabs 01/11/22[Rx Last Taken Unknown] nitroglycerin 0.4 mg sublingual tablet See Rx Instructions .Route .COMPLEX #25 tabs 02/22/22 [Rx Last Taken Unknown] pen needle, diabetic 32 gauge x 5/32 (BD Ultra-Fine Lorie Pen Needle) #360 ea 04/08/22 [Rx Last Taken Unknown] paroxetine HCl 40 mg tablet 40 mg PO DAILY depression #90 tabs 04/12/22 [Rx Last Taken Unknown] naproxen sodium 220 mg tablet (Aleve) 220 mg PO BID PRN pain 04/14/22 [History Last Taken Unknown] potassium chloride 20 mEq tablet,extended release(part/cryst) 40 meq (2 x 20 mEq) PO TID potassium 90 days #540 tabs 08/11/22 [Rx Last Taken Unknown] ferrous sulfate 325 mg (65 mg iron) tablet 325 mg PO DAILY #90 tabs 08/18/22 [Rx Last Taken Unknown] Ozempic 1 mg/dose (4 mg/3 mL) subcutaneous pen injector (semaglutide) 1 mg (0.75mL) subcut QWEEK #3 mL 09/06/22 [Rx Last Taken Unknown] blood sugar diagnostic (Sola[employer]uch Verio test strips) #100 ea 09/06/22 [Rx Last Taken Unknown] cinacalcet 30 mg tablet 30 mg PO BID #60 tabs 09/06/22 [Rx Last Taken Unknown] insulin regular hum U-500 conc 500 unit/mL(3 mL) subcut pen (Humulin R U-500 (Conc) Insulin Kwikpen) 30 unit (0.06 mL) subcut .TIDCM #6 mL 09/06/22 [Rx Last Taken Unknown] cholecalciferol (vitamin D3) 1,250 mcg (50,000 unit) capsule 1,250 mcg PO QWEEK #8 caps 09/07/22 [Rx Last Taken Unknown] furosemide 20 mg tablet 40 mg (2 x 20 mg) PO BID 90 days #360 tabs 09/09/22 [Rx Last Taken Unknown] metoprolol succinate 50 mg tablet,extended release 24 hr 50 mg PO BID BLOOD PRESSURE #180 tabs 09/21/22 [Rx Last Taken Unknown] clopidogrel 75 mg tablet 75 mg PO DAILY BLOOD THINNER #90 tabs 10/03/22 [Rx Last Taken Unknown] Allergy/AdvReac Type Severity Reaction Status Date / Time No Known Allergies Allergy Verified 10/16/22 23:44 Family History Mother Colon cancer Sister CAD (coronary artery disease) CABG x 5 Diabetes Myocardial infarction, Onset Age: 67 Father Crohns disease Surgical History History of appendectomy History of appendectomy 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) History of coronary artery stent placement (10/12/21) History of eye surgery History of hip replacement History of intestinal surgery History of knee surgery History of tonsillectomy and adenoidectomy Social History household members: none housing: apartment other: Hx working in [employer] and [employer]. Smoking Status: Never smoker second hand exposure: Yes alcohol intake: former year quit: 2003 details: Sober since 2003. substance use type: former substance user Date of last use: 04/10/2004 and marijuana caffeine: Yes Type: carbonated beverages Number of servings: 2 and coffee Number of servings: 2 what type of physical activity do you participate in: none ROS ROS ED Constitutional Constitutional ED: Denies chills or fever(s) ENT ENT ED: Denies sore throat Cardiovascular Cardiovascular: Denies chest pain Respiratory/Chest Respiratory/Chest: Denies cough or dyspnea Gastrointestinal Gastrointestinal: Denies abdominal pain, diarrhea, nausea or vomiting Genitourinary Genitourinary ED: Denies dysuria Musculoskeletal Musculoskeletal: Reports other Details: Positive right elbow and shoulder pain Integumentary Denies Abrasions or rash Neurologic Neurologic: Reports weakness; Denies headache(s) or paresthesias Hematologic/Lymphatic Hematologic/Lymphatic: Denies easy bleeding or easy bruising EXAM Physical Exam Const Vital Signs: 10/16/22 23:45 Temperature 98.3 F Temperature Source Temporal Pulse Rate 94 Respiratory Rate 18 Blood Pressure 186/87 H Blood Pressure Mean 120 Pulse Ox 93 Oxygen Delivery Method Room Air Positive well nourished, well developed and obese General Appearance ED: well developed Nutritional Appearance: obese HEENT Reports moist mucous membranes Eyes PERRL and EOMs intact bilaterally Neck supple Neck Narrative: No nuchal rigidity or meningeal signs Negative Spurling sign Chest Wall palpation of chest normal Resp normal respiratory effort and clear to auscultation bilaterally Resp Narrative: Breath sounds are diminished But overall clear to auscultation with no signs of respiratory distress Cardio regular rate and regular rhythm Cardio Narrative: Radial pulses are plus 2 out of 4 bilaterally are equal and symmetric GI non-tender and non-distended GI Narrative: No voluntary guarding or rigidity. No pulsatile mass or fluid wave Auscultation: normoactive bowel sounds Palpation: soft Extremity Extremity Narrative: Right upper extremity is neurovascularly intact; AIN/PIN are intact and normal. There is mild soft tissue swelling noted near the olecranon. No overlying erythema or warmth. There is pain on palpation along the medial epicondyles well. Pain worsens with pronation and flexion extension. No lymphangitic streaking noted. No crepitance palpated Neuro oriented x3 and CN's II-XII intact bilaterally Sensorium / Orientation: alert Psych mental status grossly normal Skin no rashes or lesions noted MDM MDM MDM Narrative Medical decision making narrative: Patient presented to the ER mildly hypertensive but has a past medical history of this and otherwise is afebrile. He denies any direct trauma but had severe pain with any type of motion of the right elbow. He does state since he has hadgeneralized weakness and difficulty getting around that he uses his arms to pushand pull himself off the couch in bed. Differential diagnosis includes gout versus arthralgia versus tendinitis versus infectious process such as cellulitisabscess or septic joint. As the patient does have a history of diabetes I did elect to perform basic laboratory studies. Labs showed no clinically significant elevation to his white blood cell count and normal lactic acid valueas well as uric acid. His CRP is elevated at 56 which is nonspecific. He denied any recent instrumentation to suggest a infective process and there is nooverlying erythema to suggest this either. The patient states that he has had difficulty getting around and performing his ADLs and is requesting potential rehab versus half-way placement. Secondary to this inability to care for himself medicine was contacted and they do agree to accept the patient at this time. Patient does agree to hospital stay and placement if necessary. However at this time as his exam does not indicate an infectious process and I believe there is need for antibiotics and he can be admitted secondary to his debility Lab Data Attestation: I reviewed the patient's lab results. Labs: Laboratory Results - last 24 hr 10/17/22 00:28 WBC 11.7 H RBC 4.44 L Hgb 13.1 Hct 39.3 L MCV 88.5 MCH 29.5 MCHC 33.3 RDW Std Deviation 43.9 RDW Coeff of Thao 13.5 Plt Count 284 MPV 9.7 Immature Gran % (Auto) 0.600 Neut % (Auto) 84.3 H Lymph % (Auto) 2.8 L Alpine % (Auto) 11.7 H Eos % (Auto) 0.3 Baso % (Auto) 0.3 Absolute Neuts (auto) 9.8 H Absolute Lymphs (auto) 0.33 L Nucleated RBC % 0 ESR 25 H Sodium 136 Potassium 3.2 L Chloride 103 Carbon Dioxide 24.0 Anion Gap 9 BUN 30 H Creatinine 1.65 H Estim Creat Clear Calc 46.09 Est GFR (MDRD) Af Amer 54 L Est GFR (MDRD) Non-Af 45 L BUN/Creatinine Ratio 18.2 Glucose 176 H Lactic Acid 1.4 Uric Acid 6.9 Calcium 10.4 H C-React Prot Ext Range 55.90 H Radiography Diagnostic Testing: Clinical Impression(s) from Imaging Studies Elbow X-Ray 10/17/22 00:15 IMPRESSION: Soft tissue edema and mild mineralization at the triceps insertion of the olecranon. Differential includes hydroxyapatite deposition and calcified tendinitis, sequela of prior injury, or possibly acute avulsion injury if there is history of trauma. Electronically Signed: Brown Russ MD at 1:00 EDT , Right elbow x-rays interpreted by the emergency medicine physician reveals mild soft tissue swelling without joint effusion fracture dislocation or foreign body Management Discussion w/another healthcare provider: Hospitalist Discharge Plan Dx/Rx/DC Orders Clinical Impression: Type 2 diabetes mellitus, Renal insufficiency, Debility, Benign essential HTN, Right elbow pain Disposition Disposition: Acute Care Hospital [facility] Discharge Date/Time: 10/17/22 03:49 What to do if you have Problems For any increased pain, shortness of breath, bleeding, nausea or vomiting, chestpain, or any unexpected problems, contact your Primary Care Provider. Call [facility] ([phone]) or report to the closest Emergency Room. Call 911 if necessary. 10/17/22 0351 <Electronically signed by Marco Lara DO> Cosigner Signature (if applicable): CC: Dr. Mery Raymond MD ~ Signed [facility] Work Phone: 1([phone]) 112-919402-10-[address] Tariq [facility] May 20, 2022 4:14pm Note Date/Time May 20, 2022 11:53am [facility] Medical Records Department [address] [place] [address] Emergency Department Summary 05/20/22 MR#: [id number] Acct: [id number] Name: SHADE TEIXEIRA Rep #:[id number] : 1955 66 From: Chauncey Almaguer PCP: Mery Raymond MD Status:REG E R Location: ED HPI History of Present Illness Chief Complaint: Shortness of Breath Informant: patient Narrative Narrative: Presents history of worsening dyspnea with orthopnea. He states symptoms onset was prior to New Year's. He follows pulmonology for pulmonary hypertension. Hestates he was on antibiotics and steroids there is no improvement. He does not have asthma or COPD. He states since then symptoms slowly progressed. He is onLasix 60 mg twice a day. He reports a cough. Recent fever. Coronary stent in the in the past followed by Dr. Min last time was in October of last year. Denies chest pains. Symptoms worse with exertion. No PE risk factors. Denies history of CKD. He saw his PCP at follow-up yesterday. Chest x-ray and blood work was ordered. He obtain his chest x-ray and came to the ED. He takes Plavix. No other blood thinners. PE Risk Factors: Negative for Cancer, OCP + Smoking + > 35, Prior DVT or PE, Recent immobilization, Recent surgery or Recent travel [facility] Medical History Abnormal chest xray Acquired left ventricular hypertrophy Acute diverticulitis Adult failure to thrive Anemia Arthritis Atherosclerosis of coronary artery of [place] heart without angina pectoris Chest discomfort Chronic hypoxemic respiratory failure Chronic pain of both knees Colon cancer screening Dark stools Debility Diabetes Diabetes Diabetes Dyspnea on exertion Epistaxis Essential (primary) hypertension Fatigue Flu vaccine need Generalized weakness Health care maintenance History of DVT (deep vein thrombosis) History of pulmonary embolism Hypercalcemia Hypercalcemia Hyperparathyroidism Hypertension Hypertriglyceridemia Hypoxia Irregular heart beat Morbid obesity with BMI of 40.0-44.9, adult Near syncope Obesity FAVIAN (obstructive sleep apnea) Osteoarthritis Primary hyperparathyroidism Pulmonary embolism Pure hypercholesterolemia Seizures Shortness of breath Type 2 diabetes mellitus Home Medications albuterol sulfate 90 mcg/actuation aerosol inhaler 2 puff inhalation Q4H PRN PRNSob &/Or Wheezing #18 grams 04/08/19 [Rx Last Taken 10/22/19] Handicap Placard #1 ea 04/08/20 [Rx Last Taken Unknown] flash glucose scanning reader (FreeStyle Tiffanie 2 Riparius) #1 ea 02/16/21 [Rx Last Taken Unknown] flash glucose sensor (FreeStyle Tiffanie 2 Sensor kit) #2 ea 02/16/21 [Rx Last Taken Unknown] furosemide 20 mg tablet 60 mg PO BID 90 days #540 tabs 08/27/21 [Rx Last Taken Unknown] clopidogrel 75 mg tablet 75 mg PO DAILY BLOOD THINNER #90 tabs 09/27/21 [Rx Last Taken Unknown] metoprolol succinate 100 mg tablet,extended release 24 hr 50 mg PO BID BLOOD PRESSURE #180 tabs 10/13/21 [Rx Last Taken 08/23/21] fenofibrate micronized 200 mg capsule 200 mg PO DAILY #30 caps 11/12/21 [Rx Last Taken Unknown] metformin 1,000 mg tablet 1,000 mg PO BIDCM DIABETES #180 tabs 11/15/21 [Rx Last Taken Unknown] amlodipine 10 mg tablet 10 mg PO DAILY BLOOD PRESSURE #90 tabs 11/25/21 [Rx Last Taken Unknown] losartan 25 mg tablet 25 mg PO DAILY #90 tabs 12/06/21 [Rx Last Taken Unknown] ranolazine 500 mg tablet,extended release,12 hr 500 mg PO BID #180 tabs 01/11/22[Rx Last Taken Unknown] blood sugar diagnostic ([employer] Verio test strips) #100 ea 02/16/22 [Rx Last Taken Unknown] dulaglutide 3 mg/0.5 mL subcutaneous pen injector (Trulicity) 3 mg (0.5 mL) subcut QWEEK #2 mL 02/16/22 [Rx Last Taken Unknown] potassium chloride 20 mEq tablet,extended release(part/cryst) 40 meq PO TID potassium 90 days #540 tabs 02/18/22 [Rx Last Taken Unknown] nitroglycerin 0.4 mg sublingual tablet See Rx Instructions .Route .COMPLEX #25 tabs 02/22/22 [Rx Last Taken Unknown] cinacalcet 30 mg tablet 30 mg PO BID #60 tabs 02/24/22 [Rx Last Taken Unknown] pen needle, diabetic 32 gauge x 5/32 (BD Ultra-Fine Lorie Pen Needle) #360 ea 04/08/22 [Rx Last Taken Unknown] paroxetine HCl 40 mg tablet 40 mg PO DAILY depression #90 tabs 04/12/22 [Rx Last Taken Unknown] naproxen sodium 220 mg tablet (Aleve) 220 mg PO BID PRN 04/14/22 [History Last Taken Unknown] insulin regular hum U-500 conc 500 unit/mL(3 mL) subcut pen (Humulin R U-500 (Conc) Insulin Kwikpen) 30 unit (0.06 mL) subcut .TIDCM #6 mL 05/03/22 [Rx Last Taken Unknown] cholecalciferol (vitamin D3) 1,250 mcg (50,000 unit) capsule 1,250 mcg PO .twicea week #8 caps 05/10/22 [Rx Last Taken Unknown] ferrous sulfate 325 mg (65 mg iron) tablet 325 mg PO DAILY #90 tabs 05/19/22 [Rx Last Taken Unknown] Allergy/AdvReac Type Severity Reaction Status Date / Time No Known Allergies Allergy Verified 05/19/22 13:24 Family History Mother Colon cancer Sister CAD (coronary artery disease) CABG x 5 Diabetes Myocardial infarction, Onset Age: 67 Father Crohns disease Surgical History History of appendectomy History of appendectomy 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) History of coronary artery stent placement (10/12/21) History of eye surgery History of hip replacement History of intestinal surgery History of knee surgery History of tonsillectomy and adenoidectomy Social History household members: none housing: apartment other: Hx working in [employer] and [employer]. Smoking Status: Never smoker second hand exposure: Yes alcohol intake: former year quit: 2003 details: Sober since 2003. substance use type: former substance user Date of last use: 04/10/2004 and marijuana caffeine: Yes Type: carbonated beverages Number of servings: 2 and coffee Number of servings: 2 what type of physical activity do you participate in: none ROS ROS ED Constitutional Constitutional ED: Reports fever(s); Denies chills or sweats Eyes Eyes: Denies change in vision ENT ENT ED: Denies dysphagia or sore throat Cardiovascular Cardiovascular: Reports leg edema; Denies chest pain, palpitations or racing heartbeat Respiratory/Chest Respiratory/Chest: Reports cough, dyspnea and dyspnea on exertion Gastrointestinal Gastrointestinal: Denies abdominal pain, diarrhea, nausea or vomiting Genitourinary Genitourinary ED: Denies dysuria, hematuria or urinary frequency Musculoskeletal Musculoskeletal: Denies back pain, extremity pain or neck pain Integumentary Denies rash or wounds Neurologic Neurologic: Denies headache(s), paresthesias or weakness EXAM Physical Exam Const Vital Signs: 05/20/22 11:30 05/20/22 11:37 05/20/22 14:55 Temperature 97.3 F L Temperature Source Temporal Pulse Rate 63 58 L Respiratory Rate 20 H 16 Respiratory Effort Short of Breath Respiratory Depth Normal Respiratory Pattern Normal Blood Pressure 156/73 H 144/79 H Blood Pressure Mean 100 100 Pulse Ox 95 95 Oxygen Delivery Method Room Air Room Air Room Air Positive well nourished, well developed and obese General Appearance ED: well developed and NAD Nutritional Appearance: obese HEENT Reports moist mucous membranes normocephalic and atraumatic Eyes PERRL, EOMs intact bilaterally and conjunctivae normal General Eye ED: Yes normal appearance of both eyes Neck no lymphadenopathy and supple General: Negative for tenderness Chest Wall Chest: Negative for tenderness Resp normal respiratory effort and normal air movement Effort and Inspection: symmetric chest movement; Negative for respiratory distress Cardio regular rate, regular rhythm and no murmurs Peripheral Pulses: pulses 2+ throughout GI normal to inspection, nondistended, normoactive bowel sounds and non-tender Palpation: Negative for guarding or rebound tenderness present Back/Spine no CVA tenderness and no thoracic nor lumbar tenderness Extremity normal to inspection Extremity Narrative: 1-2+ lower extremity edema. General Extremety ED: Yes edema; Negative for tenderness General Extremity: edema Neuro oriented x3, CN's II-XII intact bilaterally and no sensory deficits noted Sensorium / Orientation: awake and alert Skin no rashes or lesions noted and no wounds MDM MDM MDM Narrative Medical decision making narrative: Interventions / MDM: Differential diagnosis: ACS, CHF, pulmonary embolism Diagnosis considered but do not suspect: Pneumothorax however normal lung soundsand normal chest x-ray My EKG interpretation: Sinus first-degree AV block, rate of 62, no ST or T wave changes. Imaging independently reviewed and interpreted by myself: I reviewed his two- view chest x-ray outpatient prior to arrival, atelectasis right middle lobe no infiltrates no pneumothorax. External documents reviewed: N/A Test considered but not ordered:N/A ED course: Patient vital stable clinically increasing leg swelling with CHF history. Exertional dyspnea with no chest pains. EKG no ischemic findings troponin was never get it. With exertional dyspnea that is worsening for over amonth, D-dimer obtain for any risk for PEs which returned negative. BNP slightly elevated at 240, he has leg swelling. Chest x-ray was reviewed noted atelectasis with no pleural effusion. Creatinine 1.3 stable from last 6 months. Hemoglobin 12.5. He was ambulated minute 94% was slightly short of breath. Patient treated with IV Lasix. I discussed with his PCP, will increase his Lasix to 80 mg twice a day he will follow-up as an outpatient recheck labs with return precautions. All questions were answered. Re-evaluation: stable and improved Disposition discussed with patient/family/significant other: Patient Case discussed with consulting clinician: PCP Dr. Raymond Lab Data Attestation: I reviewed the patient's lab results. Labs: Laboratory Results - last 24 hr 05/20/22 05/20/22 05/20/22 13:35 13:35 13:35 WBC 6.7 RBC 4.57 L Hgb 12.5 L Hct 40.0 MCV 87.5 MCH 27.4 MCHC 31.3 L RDW Std Deviation 59.2 H RDW Coeff of Thao 18.6 H Plt Count 264 MPV 9.1 Immature Gran % (Auto) 0.500 Neut % (Auto) 74.9 H Lymph % (Auto) 10.1 L Alpine % (Auto) 11.0 H Eos % (Auto) 2.9 Baso % (Auto) 0.6 Absolute Neuts (auto) 5.0 Absolute Lymphs (auto) 0.67 L Nucleated RBC % 0 PT 13.6 INR 1.1 APTT 25.0 D-Dimer Quant (PE/DVT) 0.49 Sodium 142 Potassium 3.9 Chloride 106 Carbon Dioxide 28.0 Anion Gap 8 BUN 37 H Creatinine 1.36 H Estim Creat Clear Calc 55.91 Est GFR (MDRD) Af Amer 68 Est GFR (MDRD) Non-Af 56 L BUN/Creatinine Ratio 27.2 H Glucose 164 H Calcium 10.7 H Troponin I High Sens 39 B-Natriuretic Peptide 05/20/22 13:35 WBC RBC Hgb Hct MCV MCH MCHC RDW Std Deviation RDW Coeff of Thao Plt Count MPV Immature Gran % (Auto) Neut % (Auto) Lymph % (Auto) Alpine % (Auto) Eos % (Auto) Baso % (Auto) Absolute Neuts (auto) Absolute Lymphs (auto) Nucleated RBC % PT INR APTT D-Dimer Quant (PE/DVT) Sodium Potassium Chloride Carbon Dioxide Anion Gap BUN Creatinine Estim Creat Clear Calc Est GFR (MDRD) Af Amer Est GFR (MDRD) Non-Af BUN/Creatinine Ratio Glucose Calcium Troponin I High Sens B-Natriuretic Peptide 240.9 H EKG Initial EKG: Attestation: I personally reviewed and interpreted this EKG as follows: Comments: Sinus rate of 62, first-degree AV block, no ST or T wave changes. Discharge Plan Triage Chief Complaint: Shortness of Breath ED Provider: Chauncey Tariq Dx/Rx/DC Orders Clinical Impression: Congestive heart failure, Dyspnea on exertion, Renal insufficiency, Shortness of breath Instructions: ED Heart Failure, Congestive (CHF) Prescriptions: No Action (DME) Handicap Placard See Rx Instructions .ROUTE .MEDSUPPLY Qty: 1 0RF Rx Instructions: As directed, length of time 3 years (DME) FreeStyle Tiffanie 2 Riparius Misc See Rx Instructions .ROUTE .MEDSUPPLY Qty: 1 0RF Rx Instructions: As directed (DME) FreeStyle Tiffanie 2 Sensor Kit See Rx Instructions .ROUTE .MEDSUPPLY Qty: 2 6RF Rx Instructions: As directed cinacalcet 30 mg tablet 30 mg PO BID Qty: 60 6RF ferrous sulfate 325 mg (65 mg iron) tablet 325 mg PO DAILY Qty: 90 1RF naproxen sodium [Aleve] 220 mg tablet 220 mg PO BID PRN metoprolol succinate 100 mg tablet extended release 24 hr 50 mg PO BID Qty: 180 3RF albuterol sulfate 90 mcg/actuation HFA aerosol inhaler 2 puff INHALATION Q4H PRN PRN (Reason: Sob &/Or Wheezing) Qty: 18 6RF furosemide 20 mg tablet 60 mg PO BID 90 Days Qty: 540 3RF clopidogrel 75 mg tablet 75 mg PO DAILY Qty: 90 3RF fenofibrate micronized 200 mg capsule 200 mg PO DAILY Qty: 30 12RF metformin 1,000 mg tablet 1,000 mg PO BIDCM Qty: 180 3RF amlodipine 10 mg tablet 10 mg PO DAILY Qty: 90 3RF losartan 25 mg tablet 25 mg PO DAILY Qty: 90 3RF ranolazine 500 mg tablet extended release 12 hr 500 mg PO BID Qty: 180 3RF Trulicity 3 mg/0.5 mL pen injector 3 mg subcut QWEEK Qty: 2 5RF (DME) OneTouch Verio test strips Strip See Rx Instructions .ROUTE .MEDSUPPLY Qty: 100 12RF Rx Instructions: test 4 times daily potassium chloride 20 mEq tablet,ER particles/crystals 40 meq PO TID 90 Days Qty: 540 1RF Rx Instructions: TAKE 2 TABLETS BY MOUTH THREE TIMES DAILY nitroglycerin 0.4 mg tablet, sublingual See Rx Instructions .ROUTE .COMPLEX Qty: 25 10RF Dose Instruction: DISSOLVE 1 TABLET UNDER THE TONGUE NEEDED FOR CHEST PAIN EVERY 5 MINUTES UP TO 3 TIMES. IF NO RELIEF CALL 911. Rx Instructions: DISSOLVE 1 TABLET UNDER THE TONGUE NEEDED FOR CHEST PAIN EVERY 5 MINUTES UP TO 3 TIMES. IF NO RELIEF CALL 911. (DME) pen needle, diabetic [BD Ultra-Fine Lorie Pen Needle] 32 gauge x 5/32 needle See Rx Instructions .ROUTE .MEDSUPPLY Qty: 360 5RF Rx Instructions: 4x/day paroxetine HCl 40 mg tablet 40 mg PO DAILY Qty: 90 3RF Rx Instructions: TAKE 1 TABLET BY MOUTH ONCE DAILY Humulin R U-500 (Conc) Kwikpen 500 unit/mL (3 mL) insulin pen 30 unit SUBCUT .TIDCM Qty: 6 5RF cholecalciferol (vitamin D3) 1,250 mcg (50,000 unit) capsule 1,250 mcg PO .twice a week Qty: 8 6RF Primary Care Provider: Mery Raymond Referrals: Mery Raymond MD [Primary Care Provider] - 3-5 Days Activity Restrictions/Additional Instructions: Increase your Lasix to 80 mg twice a day. This was discussed with your PCP. Follow-up after the weekend for recheck labs and symptoms. Return if any worsening symptoms. Disposition Disposition: Home, Self Care What to do if you have Problems For any increased pain, shortness of breath, bleeding, nausea or vomiting, chestpain, or any unexpected problems, contact your Primary Care Provider. Call [facility] ([phone]) or report to the closest Emergency Room. Call 911 if necessary. 05/20/22 1614 <Electronically signed by Chauncey Almaguer> Cosigner Signature (if applicable): CC: Mery Raymond MD ~ Signed [facility] Work Phone: [phone] Evaluation note* Diagnosis Onset Date Resolution Status Fatigue acute Dyspnea on exertion chronic Essential (primary) hypertension chronic Hyperlipidemia chronic History of coronary artery stent placement May resolved Vitamin D deficiency acute Essential (primary) hypertension chronic Fatigue chronic Hypertriglyceridemia chronic Renal insufficiency acute Diabetes chronic Hypercalcemia chronic Obesity chronic Vertigo, central resolved Chronic pain of both knees c hronic Chronic pain of both knees c hronic Essential (primary) hypertension chronic Type 2 diabetes mellitus chr onic Vitamin D deficiency acute Hypercalcemia chronic Obesity chronic Type 2 diabetes mellitus chr onic [facility] Work Phone: Consult note Author Sarah Munoz [facility] October 27, 2022 11:30am Note Date/Time October 27, 2022 11:3 0am [facility] Medical Records Department [address] [place] [id number] Counseling Note - Pharmacy 10/27/22 1130 MR#: [id number] Acct: [id number] Name: SHADE TEIXEIRA Rep #:[id number] : 1955 66 From: Sarah Munoz PCP: Dr. Mery Raymond MD Status:A DM IN Y [facility] [place] Med Reconciliation Pharmacy Service has performed discharge medication reconciliation for this patient. The patient's discharge medication list was reviewed for discrepancies and discrepancies were resolved. Medications at Discharge Home Medications Handicap Placard #1 ea 04/08/20 flash glucose scanning reader (FreeStyle Tiffanie 2 Riparius) #1 ea 02/16/21 flash glucose sensor (FreeStyle Tiffanie 2 Sensor kit) #2 ea 02/16/21 amlodipine 10 mg tablet 10 mg PO DAILY BLOOD PRESSURE #90 tabs 11/25/21 losartan 25 mg tablet 25 mg PO DAILY #90 tabs 12/06/21 ranolazine 500 mg tablet,extended release,12 hr 500 mg PO BID #180 tabs 01/11/22 nitroglycerin 0.4 mg sublingual tablet See Rx Instructions .Route .COMPLEX #25 tabs 02/22/22 pen needle, diabetic 32 gauge x 5/32 (BD Ultra-Fine Lorie Pen Needle) #360 ea 04/08/22 paroxetine HCl 40 mg tablet 40 mg PO DAILY depression #90 tabs 04/12/22 ferrous sulfate 325 mg (65 mg iron) tablet 325 mg PO DAILY #90 tabs 08/18/22 Ozempic 1 mg/dose (4 mg/3 mL) subcutaneous pen injector (semaglutide) 1 mg (0.75mL) subcut QWEEK #3 mL 09/06/22 blood sugar diagnostic (OneTouch Verio test strips) #100 ea 09/06/22 cinacalcet 30 mg tablet 30 mg PO BID #60 tabs 09/06/22 cholecalciferol (vitamin D3) 1,250 mcg (50,000 unit) capsule 1,250 mcg PO QWEEK #8 caps 09/07/22 furosemide 20 mg tablet 40 mg (2 x 20 mg) PO BID 90 days #360 tabs 09/09/22 metoprolol succinate 50 mg tablet,extended release 24 hr 50 mg PO BID BLOOD PRESSURE #180 tabs 09/21/22 clopidogrel 75 mg tablet 75 mg PO DAILY BLOOD THINNER #90 tabs 10/03/22 tramadol 50 mg tablet 50 mg PO Q6H PRN PRN Pain Score 6-10 3 days #10 tabs 10/18/22 acetaminophen 650 mg rectal suppository 650 mg MA Q4H PRN fever or pain 10/20/22 aluminum-magnesium hydroxide 225 mg-200 mg/5 mL oral suspension 30 ml PO DAILY PRN GI DISTRESS 10/20/22 bisacodyl 10 mg rectal suppository 10 mg MA DAILY PRN constipation 10/20/22 dextrose 40 % oral gel (Glucose Gel) 15 g PO Q15M PRN hypoglycemia 10/20/22 fenofibrate micronized 200 mg capsule 200 mg PO DAILY #30 caps 10/20/22 glucagon HCl 1 mg solution for injection (Glucagon (HCl) Emergency Kit) 1 mg IM Q20M PRN hypoglycemia 10/20/22 guaifenesin 200 mg/5 mL oral liquid 200 mg PO Q4H PRN congestion 10/20/22 magnesium hydroxide 400 mg/5 mL oral suspension (Milk of Magnesia) 30 ml PO DAILY PRN constipation 10/20/22 sodium phosphates 19 gram-7 gram/118 mL enema (Enema) 118 ml MA DAILY PRN constipation 10/20/22 apixaban 5 mg tablet (Eliquis) 5 mg PO BID #30 tabs 10/27/22 insulin glargine 100 unit/mL (3 mL) subcutaneous pen (Lantus Solostar U-100 Insulin) 7 unit (0.07 mL) subcut DAILY #15 mL 10/27/22 insulin regular hum U-500 conc 500 unit/mL(3 mL) subcut pen (Humulin R U-500 (Conc) Insulin Kwikpen) 10 unit (0.02 mL) subcut .TIDCM #6 mL 10/27/22 potassium chloride 20 mEq tablet,extended release(part/cryst) 20 meq PO BID potassium 90 days #540 tabs 10/27/22 10/27/22 1130 <Electronically signed by Sarah Munoz > Date _ Sarah Munoz Cosigner Signature (if applicable): Date CC: ~ Signed [facility] Work Phone: Consult note Author Isaiah [facility] Note Date/Time September 04, 2024 11:55 am [facility] Medical Records Department [address] [place] [address] Pre-Anesthesia Evaluation 09/04/24 1147 MR#: [id number] Acct: [id number] Name: SHADE TEIXEIRA Rep #:[id number] : 1955 68 From: Isaiah Mart MD PCP: Dr. Hank Negrete MD Status:REG S DC Y Race: C Location: [place] [address] ASA Classification* ASA Classification ASA Classification: 3 Assessment & Plan Anesthesia* Anesthesia Assessment Anesthesia Assessment: Discussed sedation and/or anesthesia options, risks, benefits, and alternatives with patient/parents/legal guardian/POA. Questions invited. The patient/parents/legal guardian/POA seems to understand and agrees to proceedwith anesthesia plan. Reviewed the physical assessment, medical history, allergy history and patient home medications list prior to surgery/procedure/anesthetic and documented any changes. Performed airway and anesthesia risk assessments. Anesthesia Type Anesthesia Type: MAC History Source History Obtained from:: Patient and Chart Anesthesia Focused Assessment* Temperature: 97.2 F Pulse Rate: 71 Blood Pressure: 161/79 Respiratory Rate: 16 Pulse Ox: 100 Oxygen Delivery Method: Nasal Cannula Oxygen Flow Rate (L/min): 3 Airway Assessment Mouth opens: >3 cm Mallampati Score: I Teeth Condition: Chipped/Broken (Multiple chipped teeth in the front.) Neck Range of motion (ROM): Full ROM Focused Labs Anesthesia Preop lab: CBC WBC 8.4 K/mm3 (4.4-11.0) 08/12/24 05:36 08/12/24 RBC 3.87 M/mm3 (4.6-6.2) L 08/12/24 05:36 08/12/24 Hgb 9.9 g/dL (13.0-16.5) L 08/12/24 05:36 08/12/24 Hct 32.2 % (40-54) L 08/12/24 05:36 08/12/24 Plt Count 272 K/mm3 (150-450) 08/12/24 05:36 08/12/24 CHEMISTRY Potassium 3.5 mmol/L (3.3-5.1) 08/12/24 05:36 08/12/24 Sodium 142 mmol/L (133-145) 08/12/24 05:36 08/12/24 Magnesium 1.8 mg/dL (1.6-2.6) 06/08/23 06:30 06/08/23 Phosphorus 2.3 mg/dL (2.5-4.9) L 06/08/23 06:30 06/08/23 BUN 40 mg/dL (4-19) H 08/12/24 05:36 08/12/24 Creatinine 1.91 mg/dL (0.70-1.20) H 08/12/24 05:36 Glucose 52 mg/dL (70-99) L 08/12/24 05:36 08/12/24 POC Glucose 125 mg/dL (74-106) H 09/04/24 11:18 09/04/24 TSH 2.340 uIU/mL (0.358-3.740) 12/12/23 10:19 0907/01 COAG PT 16.2 SECONDS (11.7-14.9) H 07/28/23 15:27 07/09 01/01 Pre-Assessment Diagnosis/Proposed Procedure Planned Operative Procedure(s): EGD Anesthesia History Anesthesia History - rn urology: Anesthesia History - rn urology Hx Hospitalization Yes: 08/09/24-08/12/24 FOR CHF 09/03/24 12:16 AND CELLULITIS Any Problems With Anesthesia No 09/03/24 12:16 Cholinesterase deficiency No 09/03/24 12:16 You/Your Family Experience No 09/03/24 12:16 fever (hyperthermia) with Relationship Recent Exposure to Contagious No 09/04/24 11:08 Disease Does patient have nerve No 09/03/24 12:16 stimulator Patient instructed to have device shut off --Does patient have Pacemaker Yes 09/04/24 11:08 or ICD? When Was Last Pacemaker Check QUESTION #4 FULL TEXT: You/Your Family Experience fever (hyperthermia) with Anesthesia Last Oral Intake Last Oral intake: Last Oral Intake NPO since 23:00 09/04/24 11:08 Meds taken in AM with sips of No 09/04/24 11:08 water? Meds patient instructed to take am of surgery PONV PONV - rn urology: PONV - rn urology Female No 09/03/24 12:16 HX of Motion Sickness No 09/03/24 12:16 HX of N/V After Surgery No 09/03/24 12:16 Non-Smoker Yes 09/03/24 12:16 Duration of Surgery greater No 09/03/24 12:16 than 60 minutes Number of Risk Factors 1 09/03/24 12:16 PONV Score Low Risk 09/03/24 12:16 Height & Weight Height & Weight: Anesthesia: Height & Weight Height 5 ft 10 in 09/04/24 11:08 Weight: 122.47 kg 09/04/24 11:08 Body Mass Index (BMI) 38.7 09/04/24 11:08 Respiratory Assessment Respiratory Assessment - rn urology: Respiratory Tract Infection Hx - rn urology Hx Respiratory Tract Infection No 09/03/24 12:16 Any additional information?: Yes Hx Respiratory Tract Infection: Yes History of Anesthesia Respiratory Infection details: Patient had COVID couple months ago. He is over the infection. However he is still requiring nasal cannula oxygen. STOP Sleep Apnea STOP Sleep Apnea - rn urology: STOP Sleep Apnea - rn urology Hx Hypertension Yes 09/03/24 12:16 Hx Sleep Apnea Yes 09/03/24 12:16 CPAP No 09/03/24 12:16 BIPAP Yes 09/03/24 12:16 Do you snore loudly (louder than talking or can be heard Do you often feel tired/ fatigued/ sleepy during daytime? Has anyone observed you stop breathing during sleep? STOP Results Positive 09/03/24 12:16 QUESTION #5 FULL TEXT : Do you snore loudly (louder than talking or can be heard through closed doors)? 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 Specify any problems Hx of Preganancy in last 3 N/A 09/03/24 12:16 Months Nurse Filling Out Transfusion DSCHRIBER 09/03/24 12:16 & Questions: Date: 09/03/24 09/03/24 12:16 Time: 12:17 09/03/24 12:16 Patient unable to answer at this time (ie. confused, unrespo /Reproduction History /Reproductive History - rn urology: /Reproductive Hx- rn urology Hx Now No 09/03/24 12:16 Gestational Age (in weeks): EDC: Hx Hx Para Hx Section SAB No 09/03/24 12:16 Active Medications Active Medications: Current Medications Generic Name Dose Route Start Last Admin Trade Name Freq PRN Reason Stop Dose Admin Lactated Ringer's 1,000 mls @ 15 mls/hr 09/04/24 11:00 09/04/24 11:24 IV 15 mls/hr .Q48H TOMMY Administration PFSH Medical History Low iron Insulin dependent diabetes mellitus On home oxygen therapy Cellulitis and abscess of left leg Acute exacerbation of CHF (congestive heart failure) CKD (chronic kidney disease), stage III Major depressive disorder Peripheral vascular disease Pacemaker Obesity Acute hypoxemic respiratory failure Lives in half-way Loss of hearing Tinnitus of both ears Wears glasses Anxiety Pressure ulcer Thyroid disease Uses wheelchair Ambulates with cane Arthritis History of renal disease Hepatitis Pulmonary embolism Back pain Injury of head and neck Hypotension Dietary restriction History of ulceration History of GI bleed History of diverticulitis Non-smoker COPD (chronic obstructive pulmonary disease) Shortness of breath on exertion History of edema History of echocardiogram History of stress test Cardiology follow-up encounter Chest pain Presence of permanent cardiac pacemaker Sick sinus syndrome Alcohol abuse Depression GERD (gastroesophageal reflux disease) BiPAP (biphasic positive airway pressure) dependence Irregular heart beat Congestive heart failure (CHF) Hypertension DVT (deep venous thrombosis) Fall Intermittent chest pain Gastric ulcer GI bleed Heart failure with preserved ejection fraction Atrial fibrillation Olecranon bursitis Debility Dizziness Anxiety and depression Vertigo Shortness of breath Diabetes Asthma Anemia Dark stools Benign essential HTN MEANS (dyspnea on exertion) Osteopenia Primary hyperparathyroidism Chest pain Hyperparathyroidism Seizures Adult failure to thrive Type 2 diabetes mellitus Chronic pain of both knees Vitamin D deficiency Renal insufficiency Fatigue Arthritis Colon cancer screening Health care maintenance Acute midline thoracic back pain Hyperlipidemia Hypercalcemia Secondary pulmonary hypertension Depression Congestive heart failure Chronic wound of head Sciatica Insomnia Pure hypercholesterolemia Atherosclerosis of coronary artery of [place] heart without angina pectoris Chronic hypoxemic respiratory failure FAVIAN (obstructive sleep apnea) Dyspnea on exertion History of pulmonary embolism Acquired left ventricular hypertrophy Abnormal chest xray Near syncope Hypoxia Hypertriglyceridemia Morbid obesity with BMI of 40.0-44.9, adult Osteoarthritis History of DVT (deep vein thrombosis) Home Medications ?Medication ?Instructions ?Recorded ?Last Taken ?Type ranolazine 500 mg tablet,extended 500 mg PO BID chest pain #180 tabs 12/20/22 08/09/24 Rx release,12 hr ferrous sulfate 325 mg (65 mg 325 mg PO DAILY suppleme nt #90 tabs 05/19/23 08/09/24 Rx iron) tablet paroxetine HCl 40 mg tablet 40 mg PO DAILY mood #30 ta bs 05/19/23 08/09/24 Rx pantoprazole 40 mg tablet,delayed 40 mg PO DAILY GI #9 0 tabs 06/01/23 08/09/24 Rx release metoprolol succinate 50 mg 50 mg PO Q12H blood pressur e #60 06/12/23 08/09/24 Rx tablet,extended release 24 hr tabs sucralfate 1 gram tablet 1 g PO 1HR_ACHS GERD #0 tabs 07/31/23 08/09/24 Rx bisacodyl 10 mg rectal suppository 10 mg MA DAILY PRN constipation 08/08/23 Unknown History insulin lispro 100 unit/mL 1 sliding scale dose subcut 08/08/23 08/09/24 History subcutaneous solution (Humalog USEASDIRECTD SS U-100 Insulin) magnesium hydroxide 400 mg/5 mL 30 ml PO DAILY PRN con stipation 08/08/23 Unknown History oral suspension (Milk of Magnesia) mineral oil (Fleet Mineral Oil 118 ml MA DAILY PRN con stipation 08/08/23 Unknown History enema) hydralazine 100 mg tablet 100 mg PO TID Hypertension # 270 02/21/24 08/09/24 Rx tabs cholecalciferol (vitamin D3) 50 100 mcg PO QDAY supple ment 03/15/24 08/09/24 History mcg (2,000 unit) capsule clopidogrel 75 mg tablet 75 mg PO QDAY Anticoagulant 03/15/24 08/23/24 History nebulizer kits #1 ea 03/15/24 Unknown Rx nebulizer machine #1 ea 03/15/24 Unknown Rx semaglutide 1 mg/dose (4 mg/3 mL) 1 mg subcut FR DM 08/23/24 History subcutaneous pen injector (Ozempic) therapeutic multivitamin 1 tab PO QAM health 03/15/24 Unknown History budesonide 1 mg/2 mL suspension 1 mg (2 mL) inhalation BID COPD 05/03/24 08/09/24 Rx for nebulization #120 mL insulin glargine 100 unit/mL (3 33 unit subcut QAM Obi g acting 07/22/24 08/09/24 History mL) subcutaneous pen (Lantus Insulin Solostar U-100 Insulin) insulin lispro 100 unit/mL 5 unit subcut 0800 Glucose Control 07/22/24 08/09/24 History subcutaneous pen insulin lispro 100 unit/mL 6 unit subcut 1200 Glucose Control 07/22/24 08/08/24 History subcutaneous pen insulin lispro 100 unit/mL 8 unit subcut 1800 Glucose Control 07/22/24 08/08/24 History subcutaneous pen acetaminophen 500 mg tablet 1,000 mg PO Q8H PRN pain 0 08/01/24 Unknown History albuterol sulfate 2.5 mg/3 mL 2.5 mg inhalation BID MA N 08/01/24 Unknown History (0.083 %) solution for nebulization shortness of breat h or wheezing ammonium lactate 5 % lotion 1 applic topical QD-BID MA N dry 08/01/24 08/09/24 History skin cinacalcet 30 mg tablet 30 mg PO BID supplement 07/1008/09/24 History oxycodone 5 mg tablet 5 mg PO Q6H PRN Pain Score 6 -10 08/01/24 Unknown History fenofibrate nanocrystallized 145 145 mg PO DAILY 08/15 Unknown History mg tablet furosemide 40 mg tablet 60 mg PO QDAY water pill 12/02 Unknown History potassium chloride 20 mEq 20 meq PO QDAY Supplement #0 tabs 08/15/24 Unknown Rx tablet,extended release(part/cryst) spironolactone 25 mg tablet 25 mg PO DAILY #1 TAB 12/02 Unknown Rx Lactobacillus rhamnosus GG 10 1 cap PO BID 09/03/24 Un known History billion cell capsule (Culturelle) cefdinir 300 mg capsule 300 mg PO BID 09/03/24 Unkno wn History Allergy/AdvReac Type Severity Reaction Status Date / Time No Known Allergies Allergy Verified 09/03/24 11:58 Family History Mother Colon cancer Sister CAD (coronary artery disease) CABG x 5 Diabetes Myocardial infarction, Onset Age: 67 Father Crohns disease Surgical History History of cardiac catheterization History of appendectomy History of eye surgery History of intestinal surgery History of appendectomy History of tonsillectomy and adenoidectomy History of knee surgery History of hip replacement 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) History of coronary artery stent placement (10/21/22) Social History household members: none housing: apartment current occupational status: retired pets and animals: No other: Hx working in [employer] and [employer]. Smoking Status: Never smoker second hand exposure: Yes alcohol intake: former year quit: 2003 details: Sober since 2003. substance use type: former substance user Date of last use: 04/10/2004 and marijuana caffeine: Yes Type: carbonated beverages Number of servings: 2 and coffee Number of servings: 2 what type of physical activity do you participate in: none Review of Systems (Anesthesia) ROS Narrative System reviewed and no additional complaints, except as documented. Physical Exam Resp clear to auscultation bilaterally 09/04/24 1155 <Electronically signed by Isaiah leos MD> Date _ Isaiah Mart MD Cosigner Signature: Date CC: ~ Signed [facility] Work Phone: Consult note Author Wagner Colindres [facility] Note Date/Time September 04, 2024 12:23 pm [facility] Medical Records Department [address] [place] [address] Anesthesia Postop Eval I 09/04/24 1222 MR#: [id number] Acct: [id number] Name: SHADE TEIXEIRA Rep #:[id number] : 1955 68 From: Wagner Colindres PCP: Dr. Hank Negrete MD Status:REG S DC Y Race: C Location: [place] [address] Anesthesia: Postop Eval I Current Vital Signs Temperature: 97.8 F Pulse Rate: 70 Blood Pressure: 129/72 Respiratory Rate: 16 Pulse Ox: 100 Oxygen Delivery Method: Nasal Cannula Oxygen Flow Rate (L/min): 3 Assessment Airway patent: Yes Spontaneous unlabored respirations: Yes Mental status: Awake and Calm nausea: No Vomiting: No Anesthesia Complication: No Fluid Hydration Crystalloid volume administer (ml): 300 Total IV fluid infused: 300 Progress Note Anesthesia document: Postop Eval 1 completed: Yes 09/04/24 1223 <Electronically signed by Wagner Colindres > Date _ Wagner Colindres Cosigner Signature: Date CC: ~ Signed [facility] Work Phone: Discharge summary Author Kassidy Velez [facility] October 27, 2022 11:01am Note Date/Time October 27, 2022 11:0 1am [facility] Medical Records Department [address] [place] [id number] [facility] MR#: [id number] Acct: [id number] Name: SHADE TEIXEIRA Rep #:[id number] : 1955 66 From: Kassidy Velez MD PCP: Dr. Mery Raymond MD Status:A DM IN Certification of patient admission REQUIRED AT TIME OF ADMISSION. I CERTIFY THAT POST-HOSPITAL ECF SERVICES ARE REQUIRED TO BE GIVEN ON AN IN-PATIENT BASIS BECAUSE OF THE ABOVE NAMED PATIENT'S NEED FOR [facility] CARE ON A CONTINUING BASIS FOR THE CONDITION(S) FOR WHICH HE/SHE WAS RECEIVING IN-PATIENT HOSPITAL SERVICES PRIOR TO HIS/HER TRANSFER TO THE [facility]. 10/27/22 1101<Electronically signed by Kassidy Velez MD> Diet Diet Order/Speech Therapy: 10/26/22 11:50 Diet: Cardiac - Heart Healthy Is pt able to select menu?: Yes Routine Orders/Code Status Suppository Type: Dulcolax 10mg Suppository Frequency: Daily PRN Routine Lab Work: BMP (2-3 days for kidney fxn and potassium) Code Status: Full Code Therapies Physical Therapy: Eval and Treat Occupational Therapy: Eval and Treat Problem/Diagnosis (1) Atherosclerosis of coronary artery of [place] heart without angina pectoris: Status: Chronic Code(s): I25.10 - Atherosclerotic heart disease of [place] coronary artery without angina pectoris Comment: PCI-Mid LAD 3.0 x 16 mm Promus Synergy DANIEL , PCI and stent of 80% proximal OM1 10/12/2021 (2) Hypertriglyceridemia: Status: Chronic Code(s): E78.1 - Pure hyperglyceridemia (3) Diabetes: Status: Chronic Code(s): E11.9 - Type 2 diabetes mellitus without complications (4) Hypercalcemia: Status: Chronic Code(s): E83.52 - Hypercalcemia Plan #unstable angina w/ stenting #History of coronary artery disease #CKD stage IIIb #pafib #Type 2 diabetes mellitus #Hyperparathyroidism with hypercalcemia #Right olecranon bursitis #Anxiety and depression #FAVIAN 66-year-old male w/ PMHx: Hyperparathyroidism with hypercalcemia, CKD stage III unclear subtype, Chronic normocytic anemia/iron deficiency anemia, Anxiety and Depression, CAD s/p PCI, Asthma, Hx VTE (DVT, PE), HTN, HLD, FAVIAN, Seizure disorder, Diabetes mellitus type II, PAF, recent admission for olecranon bursitis with right upper extremity pain treated with IV steroids, low-dose NSAIDs specifically Mobic discharged on tramadol with plan follow-up with orthopedic surgeon Dr. Gary in 2 weeks who presents to the [facility] ED on 10/21/22 with history of intermittent chest discomfort. He had a stress test that was found to be positive and cardiology consulted. Patient ultimately had heart catheterization and had 3 stents placed. Echo during his admission with EF of 55 to 60% with normal LV systolic function and moderate MR with no comment on diastolic dysfunction. He tolerated cath well and plan was to discharge on Eliquis due to his A-fib and Plavix given his coronary artery disease as well asbeta-robinson. He did have a slight increase in his creatinine from baseline that improved with holding Lasix and fluids. Cath time and was ultimately resumed on the Lasix. He also had to have down titration of his insulin due to low blood sugars. On day of discharge reports he is somewhat sore from the position he laid in with his heart cath but overall feeling well and denies chest pain or shortness of breath. Discharge instructions as follows: DISCHARGE INSTRUCTIONS PLEASE READ *Please take this with you to your next doctors appointment* -You will need to continue Eliquis 5 mg twice daily and Plavix on discharge -You will need to follow-up with cardiology upon discharge, please call the office of Dr. Alex upon discharge to schedule your hospital follow-up appointment ) -Would recommend lab work (BMP) to check your kidney function and potassium in 2to 3 days through your primary care physician's office. Please call their office upon discharge to obtain order for lab work. -Weigh yourself every day. A sudden weight gain can mean you are retaining fluid. Weigh yourself at the same time of day and in the same kind of clothes. Ideally, weigh yourself first thing in the morning after you empty your bladder,but before you eat breakfast. -Please call your physician if your weight goes up by more than 2 pounds in 1 day or 5 pounds in 1 week. This can be a sign that you are retaining more fluid than you should be. -You have had several medication changes, your metformin was discontinued due toyour kidney function and your long-acting insulin was decreased to 7 units and your Humulin 3 times daily was decreased to 10 units due to low blood sugars. Additionally your potassium was decreased to 20 mEq twice daily -Please call your primary care provider's office upon discharge to schedule a hospital follow up within 1 week. -For any concerning signs or symptoms please call 911 or proceed to the nearest emergency department Allergies/Procedures Done in Hospital Allergies No Known Allergies Allergy (Verified 10/20/22 22:49) Procedures: - (stress test, heart cath) Type of Care/Length of Stay Estimated LOS: Convalescent Care Less Than 30 days Type of Care Needed: Skilled Rehab Potential: Fair Prognosis: Fair Additional Orders/Day of Discharge Day of Discharge: 10/27/22 Dietary and Speech Recommendations Dietitian Recommendations/Changes: RD will adjust diet to 1800CCD/Cardiac diet to manage medical conditions. Discharge Plan Admission Admit Date/Time: 10/21/22 01:34 Primary Reason for Your Visit: Chest pain Attending Provider: Kassidy Velez Primary Care Provider: Mery Raymond Consulting Providers: Purvi Jensen; Ty Rocha; Maeve Coeras Instructions Patient Instructions: AFib Dc Additional Instructions / Restrictions: DISCHARGE INSTRUCTIONS PLEASE READ *Please take this with you to your next doctors appointment* -You will need to continue Eliquis 5 mg twice daily and Plavix on discharge -You will need to follow-up with cardiology upon discharge, please call the office of Dr. Alex upon discharge to schedule your hospital follow-up appointment ) -Would recommend lab work (BMP) to check your kidney function and potassium in 2to 3 days through your primary care physician's office. Please call their office upon discharge to obtain order for lab work. -Weigh yourself every day. A sudden weight gain can mean you are retaining fluid. Weigh yourself at the same time of day and in the same kind of clothes. Ideally, weigh yourself first thing in the morning after you empty your bladder,but before you eat breakfast. -Please call your physician if your weight goes up by more than 2 pounds in 1 day or 5 pounds in 1 week. This can be a sign that you are retaining more fluid than you should be. -You have had several medication changes, your metformin was discontinued due toyour kidney function and your long-acting insulin was decreased to 7 units and your Humulin 3 times daily was decreased to 10 units due to low blood sugars. Additionally your potassium was decreased to 20 mEq twice daily -Please call your primary care provider's office upon discharge to schedule a hospital follow up within 1 week. -For any concerning signs or symptoms please call 911 or proceed to the nearest emergency department Discharge Orders/Prescriptions Prescriptions: New Eliquis 5 mg Tablet 5 mg PO BID Qty: 30 0RF Continued (DME) Handicap Placard See Rx Instructions .ROUTE .MEDSUPPLY Qty: 1 0RF Rx Instructions: As directed, length of time 3 years (DME) FreeStyle Tiffanie 2 Riparius Misc See Rx Instructions .ROUTE .MEDSUPPLY Qty: 1 0RF Rx Instructions: As directed (DME) FreeStyle Tiffanie 2 Sensor Kit See Rx Instructions .ROUTE .MEDSUPPLY Qty: 2 6RF Rx Instructions: As directed ferrous sulfate 325 mg (65 mg iron) tablet 325 mg PO DAILY Qty: 90 1RF (DME) OneTouch Verio test strips Strip See Rx Instructions .ROUTE .MEDSUPPLY Qty: 100 12RF Rx Instructions: test 3 times daily cinacalcet 30 mg tablet 30 mg PO BID Qty: 60 6RF Ozempic 1 mg/dose (4 mg/3 mL) pen injector 1 mg subcut QWEEK Qty: 3 4RF furosemide 20 mg tablet 40 mg PO BID 90 Days Qty: 360 3RF acetaminophen 650 mg suppository 650 mg MA Q4H PRN (Reason: fever or pain) aluminum-magnesium hydroxide 225-200 mg/5 mL suspension 30 ml PO DAILY PRN (Reason: GI DISTRESS) bisacodyl 10 mg suppository 10 mg MA DAILY PRN (Reason: constipation) Enema 19-7 gram/118 mL enema 118 ml MA DAILY PRN (Reason: constipation) glucagon HCl [Glucagon (HCl) Emergency Kit] 1 mg recon soln 1 mg IM Q20M PRN (Reason: hypoglycemia) Rx Instructions: until target blood sugar attained dextrose [Glucose Gel] 40 % gel 15 g PO Q15M PRN (Reason: hypoglycemia) Rx Instructions: until symptoms of low blood sugar are controlled guaifenesin 200 mg/5 mL liquid 200 mg PO Q4H PRN (Reason: congestion) magnesium hydroxide [Milk of Magnesia] 400 mg/5 mL suspension 30 ml PO DAILY PRN (Reason: constipation) tramadol 50 mg Tablet 50 mg PO Q6H PRN PRN (Reason: Pain Score 6-10) 3 Days Qty: 10 0RF amlodipine 10 mg tablet 10 mg PO DAILY Qty: 90 3RF losartan 25 mg tablet 25 mg PO DAILY Qty: 90 3RF Hold Instructions: Hold for 5 days. ranolazine 500 mg tablet extended release 12 hr 500 mg PO BID Qty: 180 3RF nitroglycerin 0.4 mg tablet, sublingual See Rx Instructions .ROUTE .COMPLEX Qty: 25 10RF Dose Instruction: DISSOLVE 1 TABLET UNDER THE TONGUE NEEDED FOR CHEST PAIN EVERY 5 MINUTES UP TO 3 TIMES. IF NO RELIEF CALL 911. Rx Instructions: DISSOLVE 1 TABLET UNDER THE TONGUE NEEDED FOR CHEST PAIN EVERY 5 MINUTES UP TO 3 TIMES. IF NO RELIEF CALL 911. (DME) pen needle, diabetic [BD Ultra-Fine Lorie Pen Needle] 32 gauge x 5/32 needle See Rx Instructions .ROUTE .MEDSUPPLY Qty: 360 5RF Rx Instructions: 4x/day paroxetine HCl 40 mg tablet 40 mg PO DAILY Qty: 90 3RF Rx Instructions: TAKE 1 TABLET BY MOUTH ONCE DAILY cholecalciferol (vitamin D3) 1,250 mcg (50,000 unit) capsule 1,250 mcg PO QWEEK Qty: 8 6RF metoprolol succinate 50 mg tablet extended release 24 hr 50 mg PO BID Qty: 180 3RF clopidogrel 75 mg tablet 75 mg PO DAILY Qty: 90 3RF fenofibrate micronized 200 mg capsule 200 mg PO DAILY Qty: 30 12RF Changed potassium chloride 20 mEq tablet,ER particles/crystals 20 meq PO BID 90 Days Qty: 540 1RF insulin glargine [Lantus Solostar U-100 Insulin] 100 unit/mL (3 mL) insulin pen 7 unit subcut DAILY Qty: 15 3RF Rx Instructions: Hold if glucose less than 130 mg/dl Humulin R U-500 (Conc) Kwikpen 500 unit/mL (3 mL) insulin pen 10 unit SUBCUT .TIDCM Qty: 6 5RF Discontinued acetaminophen 325 mg Tablet 650 mg PO Q4H PRN (Reason: Pain 1-10 Or Fever>100.7) metformin 1,000 mg tablet 1,000 mg PO BIDCM Qty: 180 3RF Referrals / Follow Up: Chema Alex MD [Med Staff - Active Staff] - Within 1 Week Mery Raymond MD [Primary Care Provider] - Within 1 Week Disposition Disposition (needs filled in before D/C Order can be placed): Group Home Facility (1) Atherosclerosis of coronary artery of [place] heart without angina pectoris Qualifiers: Coronary Disease-Associated Artery/Lesion type: [place] artery Qualified Code(s): I25.10 - Atherosclerotic heart disease of [place] coronary artery without angina pectoris (3) Diabetes Qualifiers: Diabetes mellitus type: type 2 Diabetes mellitus 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 Purvi Jensen MD; Dr. Maeve Coreas MD; Dr. Mery Raymond MD; Dr.Farouk Josefina MD ~ [facility] Work Phone: Discharge summary Author Kassidy Velez [facility] October 27, 2022 11:25am Note Date/Time October 27, 2022 11:0 5am [facility] Medical Records Department [address] [place] [address] Discharge Summary 10/27/22 1101 MR#: [id number] Acct: [id number] Name: SHADE TEIXEIRA Rep #:[id number] : 1955 66 From: Kassidy Velez MD PCP: Dr. Mery Raymond MD Status:A DM IN Location: [place] [address] Providers Date of Admission: 10/21/22 Date of Discharge: 10/27/22 Primary Care Physician: Dr. Mery Raymond MD Consultations 10/21/22 16:56 Consult: Cardiology Routine Consulting Provider: Ty Rocha Reason for Consult: Abnormal stress test EMERGENT Consult: No MD Notified: Yes Date Notified: 10/21/22 Time Notified: 16:57 Method of Notification: Text Reason For Visit: PAF, chest pain Diagnosis Discharge Diagnosis (1) Atherosclerosis of coronary artery of [place] heart without angina pectoris: Status: Chronic Code(s): I25.10 - Atherosclerotic heart disease of [place] coronary artery without angina pectoris Qualifiers: Coronary Disease-Associated Artery/Lesion type: [place] artery QualifiedCode(s): I25.10 - Atherosclerotic heart disease of [place] coronary artery without angina pectoris (2) Hypertriglyceridemia: Status: Chronic Code(s): E78.1 - Pure hyperglyceridemia (3) Diabetes: Status: Chronic Code(s): E11.9 - Type 2 diabetes mellitus without complications Qualifiers: Diabetes mellitus type: type 2 Diabetes mellitus termite control technician insulin use:with termite control technician use Diabetes mellitus complication status: with hyperglycemia Qualified Code(s): E11.65 - Type 2 diabetes mellitus with hyperglycemia; Z79.4 -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 (current) use of insulin (4) Hypercalcemia: Status: Chronic Code(s): E83.52 - Hypercalcemia Plan #unstable angina w/ stenting #History of coronary artery disease #CKD stage IIIb #pafib #Type 2 diabetes mellitus #Hyperparathyroidism with hypercalcemia #Right olecranon bursitis #Anxiety and depression #FAVIAN Medications at Discharge Home Medications Handicap Placard #1 ea 04/08/20 flash glucose scanning reader (FreeStyle Tiffanie 2 Riparius) #1 ea 02/16/21 flash glucose sensor (FreeStyle Tiffanie 2 Sensor kit) #2 ea 02/16/21 amlodipine 10 mg tablet 10 mg PO DAILY BLOOD PRESSURE #90 tabs 11/25/21 losartan 25 mg tablet 25 mg PO DAILY #90 tabs 12/06/21 ranolazine 500 mg tablet,extended release,12 hr 500 mg PO BID #180 tabs 01/11/22 nitroglycerin 0.4 mg sublingual tablet See Rx Instructions .Route .COMPLEX #25 tabs 02/22/22 pen needle, diabetic 32 gauge x 5/32 (BD Ultra-Fine Lorie Pen Needle) #360 ea 04/08/22 paroxetine HCl 40 mg tablet 40 mg PO DAILY depression #90 tabs 04/12/22 ferrous sulfate 325 mg (65 mg iron) tablet 325 mg PO DAILY #90 tabs 08/18/22 Ozempic 1 mg/dose (4 mg/3 mL) subcutaneous pen injector (semaglutide) 1 mg (0.75mL) subcut QWEEK #3 mL 09/06/22 blood sugar diagnostic (OneTouch Verio test strips) #100 ea 09/06/22 cinacalcet 30 mg tablet 30 mg PO BID #60 tabs 09/06/22 cholecalciferol (vitamin D3) 1,250 mcg (50,000 unit) capsule 1,250 mcg PO QWEEK #8 caps 09/07/22 furosemide 20 mg tablet 40 mg (2 x 20 mg) PO BID 90 days #360 tabs 09/09/22 metoprolol succinate 50 mg tablet,extended release 24 hr 50 mg PO BID BLOOD PRESSURE #180 tabs 09/21/22 clopidogrel 75 mg tablet 75 mg PO DAILY BLOOD THINNER #90 tabs 10/03/22 tramadol 50 mg tablet 50 mg PO Q6H PRN PRN Pain Score 6-10 3 days #10 tabs 10/18/22 acetaminophen 650 mg rectal suppository 650 mg MA Q4H PRN fever or pain 10/20/22 aluminum-magnesium hydroxide 225 mg-200 mg/5 mL oral suspension 30 ml PO DAILY PRN GI DISTRESS 10/20/22 bisacodyl 10 mg rectal suppository 10 mg MA DAILY PRN constipation 10/20/22 dextrose 40 % oral gel (Glucose Gel) 15 g PO Q15M PRN hypoglycemia 10/20/22 fenofibrate micronized 200 mg capsule 200 mg PO DAILY #30 caps 10/20/22 glucagon HCl 1 mg solution for injection (Glucagon (HCl) Emergency Kit) 1 mg IM Q20M PRN hypoglycemia 10/20/22 guaifenesin 200 mg/5 mL oral liquid 200 mg PO Q4H PRN congestion 10/20/22 magnesium hydroxide 400 mg/5 mL oral suspension (Milk of Magnesia) 30 ml PO DAILY PRN constipation 10/20/22 sodium phosphates 19 gram-7 gram/118 mL enema (Enema) 118 ml MA DAILY PRN constipation 10/20/22 apixaban 5 mg tablet (Eliquis) 5 mg PO BID #30 tabs 10/27/22 insulin glargine 100 unit/mL (3 mL) subcutaneous pen (Lantus Solostar U-100 Insulin) 7 unit (0.07 mL) subcut DAILY #15 mL 10/27/22 insulin regular hum U-500 conc 500 unit/mL(3 mL) subcut pen (Humulin R U-500 (Conc) Insulin Kwikpen) 10 unit (0.02 mL) subcut .TIDCM #6 mL 10/27/22 potassium chloride 20 mEq tablet,extended release(part/cryst) 20 meq PO BID potassium 90 days #540 tabs 10/27/22 Hospital Course Procedures Cardiac catheterization, Nuclear stress test and Transthoracic echo Summary of Care Provided Minutes Spent on Discharge: 32 Hospital Course: 66-year-old male w/ PMHx: Hyperparathyroidism with hypercalcemia, CKD stage III unclear subtype, Chronic normocytic anemia/iron deficiency anemia, Anxiety and Depression, CAD s/p PCI, Asthma, Hx VTE (DVT, PE), HTN, HLD, FAVIAN, Seizure disorder, Diabetes mellitus type II, PAF, recent admission for olecranon bursitis with right upper extremity pain treated with IV steroids, low-dose NSAIDs specifically Mobic discharged on tramadol with plan follow-up with orthopedic surgeon Dr. Gary in 2 weeks who presents to the [facility] ED on 10/21/22 with history of intermittent chest discomfort. He had a stress test that was found to be positive and cardiology consulted. Patient ultimately had heart catheterization and had 3 stents placed. Echo during his admission with EF of 55 to 60% with normal LV systolic function and moderate MR with no comment on diastolic dysfunction. He tolerated cath well and plan was to discharge on Eliquis due to his A-fib and Plavix given his coronary artery disease as well asbeta-robinson. He did have a slight increase in his creatinine from baseline that improved with holding Lasix and fluids. Cath time and was ultimately resumed on the Lasix. He also had to have down titration of his insulin due to low blood sugars. On day of discharge reports he is somewhat sore from the position he laid in with his heart cath but overall feeling well and denies chest pain or shortness of breath. Discharge instructions as follows: DISCHARGE INSTRUCTIONS PLEASE READ *Please take this with you to your next doctors appointment* -You will need to continue Eliquis 5 mg twice daily and Plavix on discharge -You will need to follow-up with cardiology upon discharge, please call the office of Dr. Alex upon discharge to schedule your hospital follow-up appointment ) -Would recommend lab work (BMP) to check your kidney function and potassium in 2to 3 days through your primary care physician's office. Please call their office upon discharge to obtain order for lab work. -Weigh yourself every day. A sudden weight gain can mean you are retaining fluid. Weigh yourself at the same time of day and in the same kind of clothes. Ideally, weigh yourself first thing in the morning after you empty your bladder, but before you eat breakfast. -Please call your physician if your weight goes up by more than 2 pounds in 1 day or 5 pounds in 1 week. This can be a sign that you are retaining more fluid than you should be. -You have had several medication changes, your metformin was discontinued due toyour kidney function and your long-acting insulin was decreased to 7 units and your Humulin 3 times daily was decreased to 10 units due to low blood sugars. Additionally your potassium was decreased to 20 mEq twice daily -Please call your primary care provider's office upon discharge to schedule a hospital follow up within 1 week. -For any concerning signs or symptoms please call 911 or proceed to the nearest emergency department Physical Exam Narrative General: Alert, oriented, no apparent distress HEENT: Atraumatic, normocephalic Eyes: Anicteric, normal conjunctiva, extraocular movements grossly intact Neck: Supple Respiratory: normal respiratory effort Cardiovascular: Regular rate GI: Soft, nontender, nondistended Extremities: 1+ lower extremity edema Musculoskeletal: Moving all extremities Neuro: No overt focal neurological deficits Skin: No rashes appreciated Psych: Cooperative Weight / BMI Weight Weight: 118.2 kg Body Mass Index (BMI) 37.3 ABG / Lab / Microbiology Data 10/27/22 05:57 10/27/22 05:57 Laboratory: Laboratory Results - last 24 hr 10/26/22 10:20: Activated Clotting Time 275 H 10/26/22 11:05: Activated Clotting Time 251 H 10/26/22 11:52: POC Glucose 100 10/26/22 13:03: APTT 139.1 H* 10/26/22 16:24: POC Glucose 145 H 10/26/22 21:32: POC Glucose 169 H 10/27/22 05:57: WBC 6.9, RBC 4.36 L, Hgb 12.5 L, Hct 40.3, MCV 92.4, MCH 28.7, MCHC 31.0 L, RDW Std Deviation 46.9 H, RDW Coeff of Thao 13.8, Plt Count 354, MPV9.3, Sodium 138, Potassium 4.0, Chloride 106, Carbon Dioxide 24.0, Anion Gap 8, BUN 26 H, Creatinine 1.64 H, Estim Creat Clear Calc 46.37, Est GFR (MDRD) Af Amer 54 L, Est GFR (MDRD) Non-Af 45 L, BUN/Creatinine Ratio 15.9, Glucose 131 H,Calcium 10.5 H, Total Bilirubin 0.50, AST 19, ALT 29, Alkaline Phosphatase 57, Total Protein 7.3, Albumin 3.6, Globulin 3.7, Albumin/Globulin Ratio 1.0 10/27/22 06:50: POC Glucose 127 H D/C Instructions Discharge Diet: - (-DASH diet, 3000 mg sodium restriction, 2 L fluid restriction) Discharge Activity: - (Per PT recommendations) Meaningful Use Info Meaningful Use Diagnoses (Choose all that apply): AMI AMI/Post PCI/Angioplasty Aspirin given w/in 24hrs of arrival?: Yes ASA at discharge?: No Reason ASA not ordered:: Drug Interaction (d/c w/ plavix and eliquis instead) Antiplatelet Therapy at Discharge:: Yes Statins at discharge?: No Reason statins not ordered:: Drug Interaction (fenofibrate pt is on ) Lucian/ARB at discharge?: Yes Beta Robinson at discharge?: Yes Done w/ Acute OK measure.: Yes Documented LVEF (%): 55 Discharge Plan Admission Admit Date/Time: 10/21/22 01:34 Primary Reason for Your Visit: Chest pain Attending Provider: Kassidy Velez Primary Care Provider: Mery Raymond Consulting Providers: Purvi Jensen; Ty Rocha; Maeve Coreas Instructions Patient Instructions: AFib Dc Additional Instructions / Restrictions: DISCHARGE INSTRUCTIONS PLEASE READ *Please take this with you to your next doctors appointment* -You will need to continue Eliquis 5 mg twice daily and Plavix on discharge -You will need to follow-up with cardiology upon discharge, please call the office of Dr. Alex upon discharge to schedule your hospital follow-up appointment ) -Would recommend lab work (BMP) to check your kidney function and potassium in 2to 3 days through your primary care physician's office. Please call their office upon discharge to obtain order for lab work. -Weigh yourself every day. A sudden weight gain can mean you are retaining fluid. Weigh yourself at the same time of day and in the same kind of clothes. Ideally, weigh yourself first thing in the morning after you empty your bladder,but before you eat breakfast. -Please call your physician if your weight goes up by more than 2 pounds in 1 day or 5 pounds in 1 week. This can be a sign that you are retaining more fluid than you should be. -You have had several medication changes, your metformin was discontinued due toyour kidney function and your long-acting insulin was decreased to 7 units and your Humulin 3 times daily was decreased to 10 units due to low blood sugars. Additionally your potassium was decreased to 20 mEq twice daily -Please call your primary care provider's office upon discharge to schedule a hospital follow up within 1 week. -For any concerning signs or symptoms please call 911 or proceed to the nearest emergency department Discharge Orders/Prescriptions Prescriptions: New Eliquis 5 mg Tablet 5 mg PO BID Qty: 30 0RF Continued (DME) Handicap Placard See Rx Instructions .ROUTE .MEDSUPPLY Qty: 1 0RF Rx Instructions: As directed, length of time 3 years (DME) FreeStyle Tiffanie 2 Riparius Misc See Rx Instructions .ROUTE .MEDSUPPLY Qty: 1 0RF Rx Instructions: As directed (DME) FreeStyle Tiffanie 2 Sensor Kit See Rx Instructions .ROUTE .MEDSUPPLY Qty: 2 6RF Rx Instructions: As directed ferrous sulfate 325 mg (65 mg iron) tablet 325 mg PO DAILY Qty: 90 1RF (DME) OneTouch Verio test strips Strip See Rx Instructions .ROUTE .MEDSUPPLY Qty: 100 12RF Rx Instructions: test 3 times daily cinacalcet 30 mg tablet 30 mg PO BID Qty: 60 6RF Ozempic 1 mg/dose (4 mg/3 mL) pen injector 1 mg subcut QWEEK Qty: 3 4RF furosemide 20 mg tablet 40 mg PO BID 90 Days Qty: 360 3RF acetaminophen 650 mg suppository 650 mg MA Q4H PRN (Reason: fever or pain) aluminum-magnesium hydroxide 225-200 mg/5 mL suspension 30 ml PO DAILY PRN (Reason: GI DISTRESS) bisacodyl 10 mg suppository 10 mg MA DAILY PRN (Reason: constipation) Enema 19-7 gram/118 mL enema 118 ml MA DAILY PRN (Reason: constipation) glucagon HCl [Glucagon (HCl) Emergency Kit] 1 mg recon soln 1 mg IM Q20M PRN (Reason: hypoglycemia) Rx Instructions: until target blood sugar attained dextrose [Glucose Gel] 40 % gel 15 g PO Q15M PRN (Reason: hypoglycemia) Rx Instructions: until symptoms of low blood sugar are controlled guaifenesin 200 mg/5 mL liquid 200 mg PO Q4H PRN (Reason: congestion) magnesium hydroxide [Milk of Magnesia] 400 mg/5 mL suspension 30 ml PO DAILY PRN (Reason: constipation) tramadol 50 mg Tablet 50 mg PO Q6H PRN PRN (Reason: Pain Score 6-10) 3 Days Qty: 10 0RF amlodipine 10 mg tablet 10 mg PO DAILY Qty: 90 3RF losartan 25 mg tablet 25 mg PO DAILY Qty: 90 3RF Hold Instructions: Hold for 5 days. ranolazine 500 mg tablet extended release 12 hr 500 mg PO BID Qty: 180 3RF nitroglycerin 0.4 mg tablet, sublingual See Rx Instructions .ROUTE .COMPLEX Qty: 25 10RF Dose Instruction: DISSOLVE 1 TABLET UNDER THE TONGUE NEEDED FOR CHEST PAIN EVERY 5 MINUTES UP TO 3 TIMES. IF NO RELIEF CALL 911. Rx Instructions: DISSOLVE 1 TABLET UNDER THE TONGUE NEEDED FOR CHEST PAIN EVERY 5 MINUTES UP TO 3 TIMES. IF NO RELIEF CALL 911. (DME) pen needle, diabetic [BD Ultra-Fine Lorie Pen Needle] 32 gauge x 5/32 needle See Rx Instructions .ROUTE .MEDSUPPLY Qty: 360 5RF Rx Instructions: 4x/day paroxetine HCl 40 mg tablet 40 mg PO DAILY Qty: 90 3RF Rx Instructions: TAKE 1 TABLET BY MOUTH ONCE DAILY cholecalciferol (vitamin D3) 1,250 mcg (50,000 unit) capsule 1,250 mcg PO QWEEK Qty: 8 6RF metoprolol succinate 50 mg tablet extended release 24 hr 50 mg PO BID Qty: 180 3RF clopidogrel 75 mg tablet 75 mg PO DAILY Qty: 90 3RF fenofibrate micronized 200 mg capsule 200 mg PO DAILY Qty: 30 12RF Changed potassium chloride 20 mEq tablet,ER particles/crystals 20 meq PO BID 90 Days Qty: 540 1RF insulin glargine [Lantus Solostar U-100 Insulin] 100 unit/mL (3 mL) insulin pen 7 unit subcut DAILY Qty: 15 3RF Rx Instructions: Hold if glucose less than 130 mg/dl Humulin R U-500 (Conc) Kwikpen 500 unit/mL (3 mL) insulin pen 10 unit SUBCUT .TIDCM Qty: 6 5RF Discontinued acetaminophen 325 mg Tablet 650 mg PO Q4H PRN (Reason: Pain 1-10 Or Fever>100.7) metformin 1,000 mg tablet 1,000 mg PO BIDCM Qty: 180 3RF Referrals / Follow Up: Chema Alex MD [Med Staff - Active Staff] - Within 1 Week Mery Raymond MD [Primary Care Provider] - Within 1 Week Disposition Disposition (needs filled in before D/C Order can be placed): Group Home Facility Charges/Coding Visit Charges Inpatient E&M: 89025 Disch Hosp >30min 10/27/22 1125 <Electronically signed by Kassidy Velez MD> Cosigner Signature (if applicable): CC: Dr. Mery Raymond MD; Dr. Kassidy Velez MD~ Signed [facility] Work Phone: Discharge summary Author Linus Yanez [facility] February 26, 2023 2:59am Note Date/Time February 26, 2023 1:26am [facility] Medical Records Department [address] [place] [address] Emergency Department Summary 02/26/23 MR#: [id number] Acct: [id number] Name: SHADE TEIXEIRA Rep #:[id number] : 1955 67 From: Linus Yanez MD PCP: Dr. Mery Raymond MD Status:A DM IN Location: [place] [address] HPI History of Present Illness Chief Complaint: Shortness of Breath Informant: patient and EMS Narrative Narrative: Presents with dyspnea by EMS. Patient states that about a week ago he started getting slightly short of breath. But it is gotten slowly worse. He is gotten a cough over the last day or so but no productivity. No fevers chills. He is not having chest pain. After extensive questioning I find out he was on Lasix but ran out about a week ago. He is not sure what his dosage was but its been as high as 40 mg twice a day. He also ran out of Synthroid but that is only been about 3 days. He cannot lay flat. No hemoptysis or sputum production. [facility] Medical History (Updated 02/26/23 @ 02:[address] Linus Yanez MD) Abnormal chest xray Acquired left ventricular hypertrophy Acute midline thoracic back pain Adult failure to thrive Anemia Anxiety and depression Arthritis Asthma Atherosclerosis of coronary artery of [place] heart without angina pectoris Atrial fibrillation Benign essential HTN Chest pain Chronic hypoxemic respiratory failure Chronic pain of both knees Chronic wound of head Colon cancer screening Congestive heart failure Dark stools Debility Depression Diabetes Dizziness MEANS (dyspnea on exertion) Dyspnea on exertion Essential (primary) hypertension Fatigue Health care maintenance History of DVT (deep vein thrombosis) History of pulmonary embolism Hypercalcemia Hyperlipidemia Hyperparathyroidism Hypertriglyceridemia Hypoxia Insomnia Morbid obesity with BMI of 40.0-44.9, adult Near syncope Obesity Olecranon bursitis FAVIAN (obstructive sleep apnea) Osteoarthritis Osteopenia Primary hyperparathyroidism Pure hypercholesterolemia Renal insufficiency Sciatica Secondary pulmonary hypertension Seizures Shortness of breath Type 2 diabetes mellitus Vertigo Vitamin D deficiency Home Medications Handicap Placard #1 ea 04/08/20 [Rx Last Taken Unknown] flash glucose scanning reader ([employer] Tiffanie 2 Riparius) #1 ea 02/16/21 [Rx Last Taken Unknown] flash glucose sensor (FreeStyle Tiffanie 2 Sensor kit) #2 ea 02/16/21 [Rx Last Taken Unknown] pen needle, diabetic 32 gauge x 5/32 (BD Ultra-Fine Lorie Pen Needle) #360 ea 04/08/22 [Rx Last Taken Unknown] ferrous sulfate 325 mg (65 mg iron) tablet 325 mg PO DAILY #90 tabs 08/18/22 [Rx Last Taken 10/16/22] blood sugar diagnostic (Sola[employer] Verio test strips) #100 ea 09/06/22 [Rx Last Taken Unknown] cinacalcet 30 mg tablet 30 mg PO BID #60 tabs 09/06/22 [Rx Last Taken 10/16/22] cholecalciferol (vitamin D3) 1,250 mcg (50,000 unit) capsule 1,250 mcg PO QWEEK #8 caps 09/07/22 [Rx Last Taken 10/10/22] furosemide 20 mg tablet 40 mg (2 x 20 mg) PO BID 90 days #360 tabs 09/09/22 [Rx Last Taken 10/16/22] metoprolol succinate 50 mg tablet,extended release 24 hr 50 mg PO BID BLOOD PRESSURE #180 tabs 09/21/22 [Rx Last Taken 10/16/22] clopidogrel 75 mg tablet 75 mg PO DAILY BLOOD THINNER #90 tabs 10/03/22 [Rx Last Taken 10/16/22] tramadol 50 mg tablet 50 mg PO Q6H PRN PRN Pain Score 6-10 3 days #10 tabs 10/18/22 [Rx Last Taken Unknown] acetaminophen 650 mg rectal suppository 650 mg MA Q4H PRN fever or pain 10/20/22[History Last Taken Unknown] aluminum-magnesium hydroxide 225 mg-200 mg/5 mL oral suspension 30 ml PO DAILY PRN GI DISTRESS 10/20/22 [History Last Taken Unknown] bisacodyl 10 mg rectal suppository 10 mg MA DAILY PRN constipation 10/20/22 [History Last Taken Unknown] dextrose 40 % oral gel (Glucose Gel) 15 g PO Q15M PRN hypoglycemia 10/20/22 [History Last Taken Unknown] fenofibrate micronized 200 mg capsule 200 mg PO DAILY #30 caps 10/20/22 [Rx Last Taken Unknown] glucagon HCl 1 mg solution for injection (Glucagon (HCl) Emergency Kit) 1 mg IM Q20M PRN hypoglycemia 10/20/22 [History Last Taken Unknown] guaifenesin 200 mg/5 mL oral liquid 200 mg PO Q4H PRN congestion 10/20/22 [History Last Taken Unknown] magnesium hydroxide 400 mg/5 mL oral suspension (Milk of Magnesia) 30 ml PO DAILY PRN constipation 10/20/22 [History Last Taken Unknown] sodium phosphates 19 gram-7 gram/118 mL enema (Enema) 118 ml MA DAILY PRN constipation 10/20/22 [History Last Taken Unknown] apixaban 5 mg tablet (Eliquis) 5 mg PO BID #30 tabs 10/27/22 [Rx Last Taken Unknown] insulin glargine 100 unit/mL (3 mL) subcutaneous pen (Lantus Solostar U-100 Insulin) 7 unit (0.07 mL) subcut DAILY #15 mL 10/27/22 [Rx Last Taken Unknown] insulin regular hum U-500 conc 500 unit/mL(3 mL) subcut pen (Humulin R U-500 (Conc) Insulin Kwikpen) 10 unit (0.02 mL) subcut .TIDCM #6 mL 10/27/22 [Rx Last Taken 10/16/22] potassium chloride 20 mEq tablet,extended release(part/cryst) 20 meq PO BID potassium 90 days #540 tabs 11/09/22 [Rx Last Taken Unknown] amlodipine 10 mg tablet 10 mg PO DAILY BLOOD PRESSURE #90 tabs 11/18/22 [Rx Last Taken Unknown] losartan 25 mg tablet 25 mg PO DAILY #90 tabs 12/08/22 [Rx Last Taken Unknown] ranolazine 500 mg tablet,extended release,12 hr 500 mg PO BID #180 tabs 12/20/22[Rx Last Taken Unknown] Ozempic 1 mg/dose (4 mg/3 mL) subcutaneous pen injector (semaglutide) 1 mg (0.75mL) subcut QWEEK #3 mL 12/28/22 [Rx Last Taken Unknown] nitroglycerin 0.4 mg sublingual tablet See Rx Instructions .Route .COMPLEX #25 tabs 01/18/23 [Rx Last Taken Unknown] paroxetine HCl 40 mg tablet 40 mg PO DAILY depression #90 tabs 02/09/23 [Rx Last Taken Unknown] Allergy/AdvReac Type Severity Reaction Status Date / Time No Known Allergies Allergy Verified 02/26/23 01:14 Family History Mother Colon cancer Sister CAD (coronary artery disease) CABG x 5 Diabetes Myocardial infarction, Onset Age: 67 Father Crohns disease Surgical History (Updated 02/26/23 @ 01:[address] 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 Smoking Status: Never smoker second hand exposure: Yes alcohol intake: former year quit: 2003 details: Sober since 2003. substance use type: former substance user Date of last use: 04/10/2004 and marijuana caffeine: Yes Type: carbonated beverages Number of servings: 2 and coffee Number of servings: 2 what type of physical activity do you participate in: none ROS ROS ED ROS Narrative A complete review of systems was performed and is negative except as documented in the history of present illness. Some specific details below. Constitutional: No recent fevers or chills. EYE: No discharge, visual complaints, or pain. ENT: No difficulty swallowing. No swelling. No pain. No reflux symptoms. CV: No hest pain or palpitations. Respiratory: See history of present illness. GI: No abdominal pain. No nausea vomiting diarrhea. No blood in stool. : No frequency dysuria or hematuria. Musculoskeletal: No recent trauma. No pains. No new or worsening swelling. Skin: No rash. Nondiaphoretic. Neuro: No weakness or numbness. Endocrine: No polyuria or polydipsia. EXAM Physical Exam Narrative Exam Narrative: CONSTITUTIONAL: Patient is awake alert. He does have increased work of breathing. HEENT: No notable trauma. Mucous membranes moist. No sinus tenderness. No indication of pain with swallowing. EYES: No conjunctival injection. No proptosis. NECK:No JVD. No stridor. CARDIOVASCULAR: Regular rate. Regular rhythm. No notable murmur. No JVD. RESPIRATORY: Easy work of breathing. Saturations are good on 4 L of oxygen. Hehas basilar crackles and decreased breath sounds about mcfp up. GASTROINTESTINAL: Not distended. Bowel sounds are normal. No tenderness. No guarding. No rebound. No palpable mass. No bruit is heard. GENITOURINARY: No tenderness over the bladder. No CVA tenderness. MUSCULOSKELETAL: Does have bilateral edema. NEUROLOGICAL: Patient is alert and appropriate. No focal deficit noted. SKIN: No noted rashes. No diaphoresis. PSYCHIATRIC: Patient is calm. Mood is appropriate. Const Vital Signs: 02/26/23 01:14 02/26/23 01:17 02/26/23 01:17 Temperature 97.3 F L 97.3 F L Temperature Source Temporal Temporal Pulse Rate 96 89 Respiratory Rate 24 H 32 H Respiratory Effort Respiratory Pattern Blood Pressure 202/108 H 202/108 H Blood Pressure Mean 139 139 Pulse Ox 95 96 97 Oxygen Delivery Method Nasal Cannula Nasal Cannula Nasal Cannula Oxygen Flow Rate (L/min) 4 4 4 02/26/23 01:20 02/26/23 01:56 02/26/23 01:35 Temperature Temperature Source Pulse Rate 87 Respiratory Rate 26 H Respiratory Effort Short of Breath Labored Respiratory Pattern Tachypnea Blood Pressure Blood Pressure Mean Pulse Ox Oxygen Delivery Method Nasal Cannula Nasal Cannula Oxygen Flow Rate (L/min) 4 4 MDM MDM MDM Narrative Medical decision making narrative: My independent interpretation of the patient's single view AP chest x-ray does show signs of congestion with some fluid in the major fissure on the right. Final reading is pending Final reading then shows right inferior atelectasis versus infiltrate. But I think there is increased markings on both sides and his clinical picture is moreconsistent with CHF. He has no fever or white count. Patient CBC shows mild anemia at 10.1. White count and platelets are normal. Platelets are normal. Electrolytes do show an acute kidney injury with a creatinine at 2.74 when his baseline appears to be closer to 1.5. Since all his symptoms are recent I thinkthis likely is an acute change. His TSH is still normal. Patient's troponin is normal. Patient's BNP is high at 417. This is the highest we have on record for him. Since this patient is now on oxygen which is not typical for him, he has elevated creatinine, high BNP and signs of CHF I do think inpatient management is appropriate. Lab Data Labs: Laboratory Results - last 24 hr 02/26/23 01:52 WBC 9.3 RBC 3.52 L Hgb 10.1 L Hct 33.1 L MCV 94.0 MCH 28.7 MCHC 30.5 L RDW Std Deviation 55.4 H RDW Coeff of Thao 16.5 H Plt Count 267 MPV 9.2 Immature Gran % (Auto) 1.000 H Neut % (Auto) 84.1 H Lymph % (Auto) 4.4 L Alpine % (Auto) 8.9 Eos % (Auto) 1.2 Baso % (Auto) 0.4 Absolute Neuts (auto) 7.9 H Absolute Lymphs (auto) 0.41 L Nucleated RBC % 0 Differential Comment SCANNED Sodium 141 Potassium 4.4 Chloride 110 H Carbon Dioxide 24.0 Anion Gap 7 BUN 54 H Creatinine 2.74 H Estim Creat Clear Calc 27.38 Est GFR (MDRD) Af Amer 30 L Est GFR (MDRD) Non-Af 25 L BUN/Creatinine Ratio 19.7 Glucose 194 H Calcium 10.4 H Troponin I High Sens 28 B-Natriuretic Peptide 417.8 H TSH 2.52 Radiography Diagnostic Testing: Clinical Impression(s) from Imaging Studies Chest X-Ray 02/26/23 02:05 IMPRESSION: Right infrahilar atelectasis versus infiltrate. Electronically Signed: Adin TorresDO evelia at 2:53 EST , EKG Initial EKG: Comments: Been interpretation of the patient's EKG shows sinus rhythm withoverall rate of 92. No noted ectopy. There are some diffuse ST and T wave changes. MA interval, QRS duration and QTc are normal. There is some very subtle lateral ST depression that is different than 27 October 2022. But patient has no chest pain pressure or discomfort. Discharge Plan Dx/Rx/DC Orders Clinical Impression: Acute kidney injury, Congestive heart failure, Hypoxia Disposition Disposition: Acute Care Hospital [facility] What to do if you have Problems For any increased pain, shortness of breath, bleeding, nausea or vomiting, chestpain, or any unexpected problems, contact your Primary Care Provider. Call [facility] ([phone]) or report to the closest Emergency Room. Call 911 if necessary. 02/26/23257 <Electronically signed by Linus Yanez MD> Cosigner Signature (if applicable): CC: Dr. Mery Raymond MD ~ Signed ADDENDUM by Dr. Linus Yanez MD on 02/26/23 at 0259 We did check patient's saturations on room air and they are at 87%. He is put back on 4 L. 02/26/23258<Electronically signed by Linus Yanez MD> Cosigner Signature (if applicable): cc: Dr. Mery Raymond MD ~* Signed [facility] Work Phone: Discharge summary Author Kassidy Velez [facility] April 29, 2023 12:28pm Note Date/Time April 29, 2023 1 2:18pm [facility] Medical Records Department [address] [place] [address] [facility] MR#: [id number] Acct: [id number] Name: SHADE TEIXEIRA Rep #:[id number] : 1955 67 From: Kassidy Velez MD PCP: Dr. Mery Raymond MD Status:A DM [facility] Certification of patient admission REQUIRED AT TIME OF ADMISSION. I CERTIFY THAT POST-HOSPITAL ECF SERVICES ARE REQUIRED TO BE GIVEN ON AN IN-PATIENT BASIS BECAUSE OF THE ABOVE NAMED PATIENT'S NEED FOR [facility] CARE ON A CONTINUING BASIS FOR THE CONDITION(S) FOR WHICH HE/SHE WAS RECEIVING IN-PATIENT HOSPITAL SERVICES PRIOR TO HIS/HER TRANSFER TO THE F. 04/29/23 1228<Electronically signed by Kassidy Velez MD> Diet Diet Order/Speech Therapy: 04/26/23 23:35 Diet: Consistent Carb - Calorie Controlled Food consistency:: Regular Liquid Consistency:: Regular/Thin How many daily calories?: 1800 calorie Routine Orders/Code Status Suppository Type: Dulcolax 10mg Suppository Frequency: Daily PRN O2 Liters per Minute: 2 O2 Frequency: PRN (May need on ambulation) Keep PO Greater than or Equal to (%): 88 Routine Lab Work: BMP (2-3 days) Code Status: Full Code Therapies Physical Therapy: Eval and Treat Occupational Therapy: Eval and Treat Problem/Diagnosis (1) Vertigo: Status: Acute Code(s): R42 - Dizziness and giddiness (2) Fall: Status: Acute Code(s): W19.XXXA - Unspecified fall, initial encounter (3) Generalized weakness: Status: Acute Code(s): R53.1 - Weakness (4) Ambulatory dysfunction: Status: Acute Code(s): R26.2 - Difficulty in walking, not elsewhere classified (5) Chest pain: Status: Acute Code(s): R07.9 - Chest pain, unspecified Plan #Acute vertigo with mechanical fall and persistent Right-sided soreness in the setting of known vertigo #Hypoxemia in setting of chronic asthma #OA; with chronic bilateral knee and back pain 3. Generalized weakness with ambulatory dysfunction 4. Obesity 5. CAD; s/p multiple stents 6. History of paroxysmal atrial fibrillation 7. History of GI bleed attributed to PUD 8. Essential hypertension 9. Hyperlipidemia 10. DM-2 11. History of secondary pulmonary hypertension 12. History of DVT/PE 13. Chronic diastolic CHF; with preserved LVEF 14. LVH 15. History of Seizures 16. CKD; stage III 17. Chronic anemia 18. History of MRSA 19. Depression with anxiety SHADE TEIXEIRA, is a 67 with a past medical history of essential hypertension, hyperlipidemia, DM-2; of unknown control, obesity; with BMI of 33 this admission, FAVIAN, history of secondary pulmonary hypertension, history of DVT/PE, CAD; s/p multiple stents already on Ranolazine, history of paroxysmal atrial fibrillation, chronic diastolic CHF; with preserved LVEF, LVH, history of Seizures, CKD; stage III, chronic anemia, history of MRSA, history of near syncope, history of vertigo, depression with anxiety, OA; with chronic bilateralknee and back pain and history of GI bleed attributed to PUD who presents to [facility] ER 04/26/2023 complaining of chest pain and fall. He had initially gone to the ED earlier in the day due to some intermittent chest pain and fluttering feeling, cardiac workup was negative and he was sent home after he was ambulated and did well. When patient was dropped at home by the taxi however he quickly looked to the side and he became dizzy and after taking a few steps fell onto his right side striking his shoulder, ribs, knee and leg in the snow for 20 to 30 minutes until neighbor came out to help him. Denies loss of consciousness or head trauma with fall. Symptoms are most consistent with vertigo. He worked with physical therapy and was found that he had furthertherapy needs so referral [facility] During his hospitalization aside from pain from his fall he reported that he was not havingthe fluttering feeling in his chest anymore or other similar concerns but overall he was feeling better though occasionally still dizzy especially when turning his head and still somewhat overall weak. Did briefly drop down to 87% when ambulating with PT but had not felt short of breath, does have chronic asthma and follows with pulmonology. He was started on fluids when he first arrived and his Lasix were held, suspect this may have been the culprit as he had no further documented episodes after his Lasix were resumed. Due to his blood sugars being low 100s he was not receiving his Humulin U-500 and it was revealed that at home he was inconsistently taking this due to hypoglycemia, would suggest this is stopped and glucose checks daily continued as he may need it restarted in the future however given falls and low glucose concern the hypoglycemia is more dangerous for him at this time than slight hyperglycemia. Patient was monitored on telemetry during this hospitalization, occasionally would have short 1 to 2-second pauses but these did not seem to associate with any of his symptoms, beta-robinson decreased and given that with reported historyof dizziness as well as the fluttering sensation stressed prior to admission we will also give prescription for event monitor to make sure there are no arrhythmias or other associations with any of his symptoms. On day of dischargepatient felt ready to go to rehab, main concern was still receiving pain medication for his elbow and pain from falls, short course prescription printed. Given his main complaint was his elbow this was x-rayed which showed some soft tissue swelling with no dislocation or break. Continue supportive care. DISCHARGE INSTRUCTIONS PLEASE READ *Please take this with you to your next doctors appointment* -Your blood glucose has been well-controlled off of your Humulin U-500 so would advise continue to hold this but would benefit from daily blood sugar checks in the event any insulin needs to be restarted -Your metoprolol has been decreased to 25 mg twice daily and it is recommended that you be discharged with instructions for an event monitor due to episodes ofdizziness to see if there are any associated heart causes -You may benefit from vestibular rehab in the future given your symptoms of vertigo -Weigh yourself every day. A sudden weight gain can mean you are retaining fluid. Weigh yourself at the same time of day and in the same kind of clothes. Ideally, weigh yourself first thing in the morning after you empty your bladder,but before you eat breakfast. -Please call your physician if your weight goes up by more than 2 pounds in 1 day or 5 pounds in 1 week. This can be a sign that you are retaining more fluid than you should be. -Would recommend lab work (BMP) to check your potassium in 2 to 3 days through your primary care physician's office. Please call their office upon discharge to obtain order for lab work. -Given your fall and pain you have been discharged with a short course of as needed pain medication -Please call your primary care provider's office upon discharge to schedule a hospital follow up within 1 week. -For any concerning signs or symptoms please call 911 or proceed to the nearest emergency department Allergies/Procedures Done in Hospital Allergies No Known Allergies Allergy (Verified 04/26/23 19:23) Type of Care/Length of Stay Estimated LOS: Convalescent Care Less Than 30 days Type of Care Needed: Skilled Rehab Potential: Fair Prognosis: Fair Additional Orders/Day of Discharge Day of Discharge: 04/29/23 Discharge Plan Admission Admit Date/Time: 04/26/23 23:23 Primary Reason for Your Visit: Chest pain and fall Attending Provider: Kassidy Velez Primary Care Provider: Mery Raymond Consulting Providers: Maeve Noel Instructions Patient Instructions: ED Fall Prevention Additional Instructions / Restrictions: DISCHARGE INSTRUCTIONS PLEASE READ *Please take this with you to your next doctors appointment* -Your blood glucose has been well-controlled off of your Humulin U-500 so would advise continue to hold this but would benefit from daily blood sugar checks in the event any insulin needs to be restarted -Your metoprolol has been decreased to 25 mg twice daily and it is recommended that you be discharged with instructions for an event monitor due to episodes ofdizziness to see if there are any associated heart causes -You may benefit from vestibular rehab in the future given your symptoms of vertigo -Weigh yourself every day. A sudden weight gain can mean you are retaining fluid. Weigh yourself at the same time of day and in the same kind of clothes. Ideally, weigh yourself first thing in the morning after you empty your bladder,but before you eat breakfast. -Please call your physician if your weight goes up by more than 2 pounds in 1 day or 5 pounds in 1 week. This can be a sign that you are retaining more fluid than you should be. -Would recommend lab work (BMP) to check your potassium in 2 to 3 days through your primary care physician's office. Please call their office upon discharge to obtain order for lab work. -Given your fall and pain you have been discharged with a short course of as needed pain medication -Please call your primary care provider's office upon discharge to schedule a hospital follow up within 1 week. -For any concerning signs or symptoms please call 911 or proceed to the nearest emergency department Discharge Orders/Prescriptions Prescriptions: New oxycodone 5 mg Tablet 5 mg PO Q4H PRN PRN (Reason: Pain Score 6-10) 3 Days Qty: 20 0RF Continued (DME) Handicap Placard See Rx Instructions .ROUTE .MEDSUPPLY Qty: 1 0RF Rx Instructions: As directed, length of time 3 years (DME) FreeStyle Tiffanie 2 Riparius [facility] See Rx Instructions .ROUTE .MEDSUPPLY Qty: 1 0RF Rx Instructions: As directed ferrous sulfate 325 mg (65 mg iron) tablet 325 mg PO DAILY Qty: 90 1RF (DME) OneTouch Verio test strips Strip See Rx Instructions .ROUTE .MEDSUPPLY Qty: 100 12RF Rx Instructions: test 3 times daily cinacalcet 30 mg tablet 30 mg PO BID Qty: 60 8RF furosemide 40 mg tablet 40 mg PO DAILY nitroglycerin 0.4 mg tablet, sublingual 0.4 mg sublingual Q5M PRN (Reason: chest pain) Rx Instructions: do not exceed 3 doses per episode albuterol sulfate 90 mcg/actuation HFA aerosol inhaler 2 puff inhalation Q6H PRN (Reason: shortness of breath or wheezing) paroxetine HCl 40 mg tablet 40 mg PO DAILY potassium chloride 20 mEq tablet extended release 20 meq PO DAILY amlodipine 5 mg tablet 10 mg PO DAILY (DME) compress.stocking,knee,reg,lrg Misc See Rx Instructions .ROUTE .MEDSUPPLY Qty: 2 0RF Rx Instructions: Apply first thing in AM before ambulation (DME) FreeStyle Tiffanie 2 Sensor Kit See Rx Instructions .ROUTE .MEDSUPPLY Qty: 2 6RF Rx Instructions: As directed sucralfate 1 gram Tablet 1 g PO 1HR_ACHS Qty: 1 0RF Ozempic 1 mg/dose (4 mg/3 mL) pen injector 1 mg SUBCUT QWEEK Patient Comments: INJECT 1MG (0.75ML) SUBCUTANEOUSLY EVERY WEEK pantoprazole 40 mg Tablet,Delayed Release (Dr/Ec) 40 mg PO BID Qty: 60 2RF Rx Instructions: Take 40 mg twice daily for 8 weeks then decrease dose to 40 mg daily (DME) pen needle, diabetic [BD Ultra-Fine Lorie Pen Needle] 32 gauge x 5/32 needle See Rx Instructions .ROUTE .MEDSUPPLY Qty: 360 5RF Rx Instructions: 4x/day cholecalciferol (vitamin D3) 1,250 mcg (50,000 unit) capsule 1,250 mcg PO QWEEK Qty: 8 6RF Hold Instructions: Ordered clopidogrel 75 mg tablet 75 mg PO DAILY Qty: 90 3RF fenofibrate micronized 200 mg capsule 200 mg PO DAILY Qty: 30 12RF losartan 25 mg tablet 25 mg PO DAILY Qty: 90 3RF Hold Instructions: until you see nephrology ranolazine 500 mg tablet extended release 12 hr 500 mg PO BID Qty: 180 3RF Changed metoprolol succinate 50 mg tablet extended release 24 hr 25 mg PO Q12H Qty: 30 0RF Patient Comments: TAKE 1 TABLET BY MOUTH TWICE DAILY FOR BLOOD PRESSURE Discontinued Humulin R U-500 (Conc) Kwikpen 500 unit/mL (3 mL) insulin pen 30 unit SUBCUT TIDCM Patient Comments: inject 30 units subcutaneously three times a day; has been taking 20 units d/t decreasing sugar too much Other Ambulatory Orders: 14 Day Event Recorder Preventi (Urgent) Timeframe: 1 Day Facility: [facility] - Location: Cardiovascular Services Ordered By: Dr. Kassidy Velez Referrals / Follow Up: Mery Raymond MD [Primary Care Provider] - Within 1 Week Disposition Disposition (needs filled in before D/C Order can be placed): Group Home Facility (2) Fall Qualifiers: Encounter type: initial encounter Qualified Code(s): W19.XXXA - Unspecified fall, initial encounter (5) Chest pain Qualifiers: Chest pain type: unspecified Qualified Code(s): R07.9 - Chest pain, unspecified 04/29/23 1228 <Electronically signed by Kassidy Velez MD> Cosigner Signature (if applicable): CC: Dr. Maeve Noel DO; Dr. Mery Raymond MD ~ [facility] Work Phone: Discharge summary Author Kassidy [facility] April 29, 2023 12:29pm Note Date/Time April 29, 2023 1 2:29pm [facility] Medical Records Department [address] [place] [id number] Discharge Summary 04/29/23 1228 MR#: [id number] Acct: [id number] Name: SHADE TEIXEIRA Rep #:[id number] : [id number] 67 From: Kassidy Velez MD PCP: Dr. Mery Raymond MD Status:A DM ZARIA Location: [place] [address] Providers Date of Admission: 04/26/23 Date of Discharge: 04/29/23 Primary Care Physician: Dr. Mery Raymond MD Reason For Visit: VERTIGO WITH FALLS Diagnosis Discharge Diagnosis (1) Vertigo: Status: Acute Code(s): R42 - Dizziness and giddiness (2) Fall: Status: Acute Code(s): W19.XXXA - Unspecified fall, initial encounter Qualifiers: Encounter type: initial encounter Qualified Code(s): W19.XXXA - Unspecified fall, initial encounter (3) Generalized weakness: Status: Acute Code(s): R53.1 - Weakness (4) Ambulatory dysfunction: Status: Acute Code(s): R26.2 - Difficulty in walking, not elsewhere classified (5) Chest pain: Status: Acute Code(s): R07.9 - Chest pain, unspecified Qualifiers: Chest pain type: unspecified Qualified Code(s): R07.9 - Chest pain, unspecified Plan #Acute vertigo with mechanical fall and persistent Right-sided soreness in the setting of known vertigo #Hypoxemia in setting of chronic asthma #OA; with chronic bilateral knee and back pain 3. Generalized weakness with ambulatory dysfunction 4. Obesity 5. CAD; s/p multiple stents 6. History of paroxysmal atrial fibrillation 7. History of GI bleed attributed to PUD 8. Essential hypertension 9. Hyperlipidemia 10. DM-2 11. History of secondary pulmonary hypertension 12. History of DVT/PE 13. Chronic diastolic CHF; with preserved LVEF 14. LVH 15. History of Seizures 16. CKD; stage III 17. Chronic anemia 18. History of MRSA 19. Depression with anxiety Medications at Discharge Home Medications Handicap Placard #1 ea 04/08/20 flash glucose scanning reader ([employer] Tiffanie 2 Riparius) #1 ea 02/16/21 pen needle, diabetic 32 gauge x 5/32 (BD Ultra-Fine Lorie Pen Needle) #360 ea 04/08/22 ferrous sulfate 325 mg (65 mg iron) tablet 325 mg PO DAILY supplement #90 tabs 08/18/22 cholecalciferol (vitamin D3) 1,250 mcg (50,000 unit) capsule 1,250 mcg PO QWEEK supplement #8 caps 09/07/22 clopidogrel 75 mg tablet 75 mg PO DAILY BLOOD THINNER #90 tabs 10/03/22 fenofibrate micronized 200 mg capsule 200 mg PO DAILY cholesterol #30 caps 10/20/22 losartan 25 mg tablet 25 mg PO DAILY blood pressure #90 tabs 12/08/22 ranolazine 500 mg tablet,extended release,12 hr 500 mg PO BID chest pain #180 tabs 12/20/22 pantoprazole 40 mg tablet,delayed release 40 mg PO BID Stomach #60 tabs 03/03/23 blood sugar diagnostic ([employer] Information[employer] Verio test strips) #100 ea 03/07/23 cinacalcet 30 mg tablet 30 mg PO BID hypercalcemia #60 tabs 03/07/23 sucralfate 1 gram tablet 1 g PO 1HR_ACHS stomach #1 TAB 03/18/23 albuterol sulfate 90 mcg/actuation aerosol inhaler 2 puff inhalation Q6H PRN shortness of breath or wheezing 04/14/23 amlodipine 5 mg tablet 10 mg PO DAILY blood pressure 04/14/23 furosemide 40 mg tablet 40 mg PO DAILY water pill 04/14/23 nitroglycerin 0.4 mg sublingual tablet 0.4 mg sublingual Q5M PRN chest pain 04/14/23 paroxetine HCl 40 mg tablet 40 mg PO DAILY mood 04/14/23 potassium chloride 20 mEq tablet,extended release 20 meq PO DAILY supplement 04/14/23 compress.stocking,knee,reg,lrg #2 ea 04/15/23 flash glucose sensor (FreeStyle Tiffanie 2 Sensor kit) #2 ea 04/15/23 semaglutide 1 mg/dose (4 mg/3 mL) subcutaneous pen injector (Ozempic) 1 mg subcut QWEEK 04/26/23 metoprolol succinate 50 mg tablet,extended release 24 hr 25 mg (1/2 x 50 mg) PO Q12H blood pressure #30 tabs 04/29/23 oxycodone 5 mg tablet 5 mg PO Q4H PRN PRN Pain Score 6-10 3 days #20 tabs 04/29/23 Hospital Course Summary of Care Provided Minutes Spent on Discharge: 32 Hospital Course: SHADE TEIXEIRA, is a 67 with a past medical history of essential hypertension, hyperlipidemia, DM-2; of unknown control, obesity; with BMI of 33 this admission, FAVIAN, history of secondary pulmonary hypertension, history of DVT/PE, CAD; s/p multiple stents already on Ranolazine, history of paroxysmal atrial fibrillation, chronic diastolic CHF; with preserved LVEF, LVH, history of Seizures, CKD; stage III, chronic anemia, history of MRSA, history of near syncope, history of vertigo, depression with anxiety, OA; with chronic bilateralknee and back pain and history of GI bleed attributed to PUD who presents to [facility] ER 04/26/2023 complaining of chest pain and fall. He had initially gone to the ED earlier in the day due to some intermittent chest pain and fluttering feeling, cardiac workup was negative and he was sent home after he was ambulated and did well. When patient was dropped at home by the taxi however he quickly looked to the side and he became dizzy and after taking a few steps fell onto his right side striking his shoulder, ribs, knee and leg in the snow for 20 to 30 minutes until neighbor came out to help him. Denies loss of consciousness or head trauma with fall. Symptoms are most consistent with vertigo. He worked with physical therapy and was found that he had furthertherapy needs so referral [facility] During his hospitalization aside from pain from his fall he reported that he was not havingthe fluttering feeling in his chest anymore or other similar concerns but overall he was feeling better though occasionally still dizzy especially when turning his head and still somewhat overall weak. Did briefly drop down to 87% when ambulating with PT but had not felt short of breath, does have chronic asthma and follows with pulmonology. He was started on fluids when he first arrived and his Lasix were held, suspect this may have been the culprit as he had no further documented episodes after his Lasix were resumed. Due to his blood sugars being low 100s he was not receiving his Humulin U-500 and it was revealed that at home he was inconsistently taking this due to hypoglycemia, would suggest this is stopped and glucose checks daily continued as he may need it restarted in the future however given falls and low glucose concern the hypoglycemia is more dangerous for him at this time than slight hyperglycemia. Patient was monitored on telemetry during this hospitalization, occasionally would have short 1 to 2-second pauses but these did not seem to associate with any of his symptoms, beta-robinson decreased and given that with reported historyof dizziness as well as the fluttering sensation stressed prior to admission we will also give prescription for event monitor to make sure there are no arrhythmias or other associations with any of his symptoms. On day of dischargepatient felt ready to go to rehab, main concern was still receiving pain medication for his elbow and pain from falls, short course prescription printed. Given his main complaint was his elbow this was x-rayed which showed some soft tissue swelling with no dislocation or break. Continue supportive care. DISCHARGE INSTRUCTIONS PLEASE READ *Please take this with you to your next doctors appointment* -Your blood glucose has been well-controlled off of your Humulin U-500 so would advise continue to hold this but would benefit from daily blood sugar checks in the event any insulin needs to be restarted -Your metoprolol has been decreased to 25 mg twice daily and it is recommended that you be discharged with instructions for an event monitor due to episodes ofdizziness to see if there are any associated heart causes -You may benefit from vestibular rehab in the future given your symptoms of vertigo -Weigh yourself every day. A sudden weight gain can mean you are retaining fluid. Weigh yourself at the same time of day and in the same kind of clothes. Ideally, weigh yourself first thing in the morning after you empty your bladder,but before you eat breakfast. -Please call your physician if your weight goes up by more than 2 pounds in 1 day or 5 pounds in 1 week. This can be a sign that you are retaining more fluid than you should be. -Would recommend lab work (BMP) to check your potassium in 2 to 3 days through your primary care physician's office. Please call their office upon discharge to obtain order for lab work. -Given your fall and pain you have been discharged with a short course of as needed pain medication -Please call your primary care provider's office upon discharge to schedule a hospital follow up within 1 week. -For any concerning signs or symptoms please call 911 or proceed to the nearest emergency department Physical Exam Narrative General: Alert, oriented, no apparent distress HEENT: Atraumatic, normocephalic Eyes: Anicteric, normal conjunctiva, extraocular movements grossly intact Neck: Supple Respiratory: Normal respiratory effort, no significant rhonchi or wheezes Cardiovascular: Regular rate GI: Soft, nontender, nondistended Extremities: Trace peripheral edema Musculoskeletal: Moving all extremities Neuro: No overt focal neurological deficits Skin: Chronic changes in lower extremities Psych: Cooperative Weight / BMI Weight Weight: 107.637 kg Body Mass Index (BMI) 34.0 ABG / Lab / Microbiology Data 04/29/23 07:15 04/29/23 07:15 Laboratory: Laboratory Results - last 24 hr 04/28/23 16:19: POC Glucose 174 H 04/28/23 21:55: POC Glucose 177 H 04/29/23 06:22: POC Glucose 127 H 04/29/23 07:15: WBC 9.5, RBC 3.58 L, Hgb 10.0 L, Hct 31.7 L, MCV 88.5, MCH 27.9,MCHC 31.5 L, RDW Std Deviation 52.2 H, RDW Coeff of Thao 16.0 H, Plt Count 283, MPV 9.1, Immature Gran % (Auto) 0.400, Neut % (Auto) 80.9 H, Lymph % (Auto) 4.4 L, Alpine % (Auto) 12.8 H, Eos % (Auto) 1.1, Baso % (Auto) 0.4, Absolute Neuts (auto) 7.7, Absolute Lymphs (auto) 0.42 L, Nucleated RBC % 0, Differential Comment SCANNED, Sodium 137, Potassium 3.3 L, Chloride 106, Carbon Dioxide 26.0,Anion Gap 5, BUN 28 H, Creatinine 1.90 H, Estim Creat Clear Calc 46.98, Est GFR (MDRD) Af Amer 46 L, Est GFR (MDRD) Non-Af 38 L, BUN/Creatinine Ratio 14.7, Glucose 144 H, Calcium 10.4 H 04/29/23 11:38: POC Glucose 164 H D/C Instructions Discharge Diet: - (DASH diet) Discharge Activity: - (PT/OT evaluate and treat) Meaningful Use Info Meaningful Use Diagnoses (Choose all that apply): None applicable Discharge Plan Admission Admit Date/Time: 04/26/23 23:23 Primary Reason for Your Visit: Chest pain and fall Attending Provider: Kassidy Velez Primary Care Provider: Mery Raymond Consulting Providers: Maeve Noel Instructions Patient Instructions: ED Fall Prevention Additional Instructions / Restrictions: DISCHARGE INSTRUCTIONS PLEASE READ *Please take this with you to your next doctors appointment* -Your blood glucose has been well-controlled off of your Humulin U-500 so would advise continue to hold this but would benefit from daily blood sugar checks in the event any insulin needs to be restarted -Your metoprolol has been decreased to 25 mg twice daily and it is recommended that you be discharged with instructions for an event monitor due to episodes ofdizziness to see if there are any associated heart causes -You may benefit from vestibular rehab in the future given your symptoms of vertigo -Weigh yourself every day. A sudden weight gain can mean you are retaining fluid. Weigh yourself at the same time of day and in the same kind of clothes. Ideally, weigh yourself first thing in the morning after you empty your bladder,but before you eat breakfast. -Please call your physician if your weight goes up by more than 2 pounds in 1 day or 5 pounds in 1 week. This can be a sign that you are retaining more fluid than you should be. -Would recommend lab work (BMP) to check your potassium in 2 to 3 days through your primary care physician's office. Please call their office upon discharge to obtain order for lab work. -Given your fall and pain you have been discharged with a short course of as needed pain medication -Please call your primary care provider's office upon discharge to schedule a hospital follow up within 1 week. -For any concerning signs or symptoms please call 911 or proceed to the nearest emergency department Discharge Orders/Prescriptions Prescriptions: New oxycodone 5 mg Tablet 5 mg PO Q4H PRN PRN (Reason: Pain Score 6-10) 3 Days Qty: 20 0RF Continued (DME) Handicap Placard See Rx Instructions .ROUTE .MEDSUPPLY Qty: 1 0RF Rx Instructions: As directed, length of time 3 years (DME) FreeStyle Tiffanie 2 Riparius Misc See Rx Instructions .ROUTE .MEDSUPPLY Qty: 1 0RF Rx Instructions: As directed ferrous sulfate 325 mg (65 mg iron) tablet 325 mg PO DAILY Qty: 90 1RF (DME) OneTouch Verio test strips Strip See Rx Instructions .ROUTE .MEDSUPPLY Qty: 100 12RF Rx Instructions: test 3 times daily cinacalcet 30 mg tablet 30 mg PO BID Qty: 60 8RF furosemide 40 mg tablet 40 mg PO DAILY nitroglycerin 0.4 mg tablet, sublingual 0.4 mg sublingual Q5M PRN (Reason: chest pain) Rx Instructions: do not exceed 3 doses per episode albuterol sulfate 90 mcg/actuation HFA aerosol inhaler 2 puff inhalation Q6H PRN (Reason: shortness of breath or wheezing) paroxetine HCl 40 mg tablet 40 mg PO DAILY potassium chloride 20 mEq tablet extended release 20 meq PO DAILY amlodipine 5 mg tablet 10 mg PO DAILY (DME) compress.stocking,knee,reg,lrg Misc See Rx Instructions .ROUTE .MEDSUPPLY Qty: 2 0RF Rx Instructions: Apply first thing in AM before ambulation (DME) FreeStyle Tiffanie 2 Sensor Kit See Rx Instructions .ROUTE .MEDSUPPLY Qty: 2 6RF Rx Instructions: As directed sucralfate 1 gram Tablet 1 g PO 1HR_ACHS Qty: 1 0RF Ozempic 1 mg/dose (4 mg/3 mL) pen injector 1 mg SUBCUT QWEEK Patient Comments: INJECT 1MG (0.75ML) SUBCUTANEOUSLY EVERY WEEK pantoprazole 40 mg Tablet,Delayed Release (Dr/Ec) 40 mg PO BID Qty: 60 2RF Rx Instructions: Take 40 mg twice daily for 8 weeks then decrease dose to 40 mg daily (DME) pen needle, diabetic [BD Ultra-Fine Lorie Pen Needle] 32 gauge x 5/32 needle See Rx Instructions .ROUTE .MEDSUPPLY Qty: 360 5RF Rx Instructions: 4x/day cholecalciferol (vitamin D3) 1,250 mcg (50,000 unit) capsule 1,250 mcg PO QWEEK Qty: 8 6RF Hold Instructions: MD Ordered clopidogrel 75 mg tablet 75 mg PO DAILY Qty: 90 3RF fenofibrate micronized 200 mg capsule 200 mg PO DAILY Qty: 30 12RF losartan 25 mg tablet 25 mg PO DAILY Qty: 90 3RF Hold Instructions: until you see nephrology ranolazine 500 mg tablet extended release 12 hr 500 mg PO BID Qty: 180 3RF Changed metoprolol succinate 50 mg tablet extended release 24 hr 25 mg PO Q12H Qty: 30 0RF Patient Comments: TAKE 1 TABLET BY MOUTH TWICE DAILY FOR BLOOD PRESSURE Discontinued Humulin R U-500 (Conc) Kwikpen 500 unit/mL (3 mL) insulin pen 30 unit SUBCUT TIDCM Patient Comments: inject 30 units subcutaneously three times a day; has been taking 20 units d/t decreasing sugar too much Other Ambulatory Orders: 14 Day Event Recorder Preventi (Urgent) Timeframe: 1 Day Facility: [facility] - Location: Cardiovascular Services Ordered By: Dr. Kassidy Velez Referrals / Follow Up: Mery Raymond MD [Primary Care Provider] - Within 1 Week Disposition Disposition (needs filled in before D/C Order can be placed): Group Home Facility Charges/Coding Visit Charges Inpatient E&M: 51475 Disch Hosp >30min 04/29/23 1229 <Electronically signed by Kassidy Velez MD> Cosigner Signature (if applicable): CC: Dr. Mery Raymond MD; Dr. Kassidy Velez MD~ Signed [facility] Work Phone: Discharge summary Author Tunde Miller [facility] July 31, 2023 11:47am Note Date/Time July 31, 2023 11: 33am [facility] Medical Records Department [address] [place] [address] Transfer to [facility] MR#: [id number] Acct: [id number] Name: SHADE TEIXEIRA Rep #:[id number] : 1955 67 From: Tunde Miller DO PCP: Dr. Mery Raymond MD Status:A DM IN Certification of patient admission REQUIRED AT TIME OF ADMISSION. I CERTIFY THAT POST-HOSPITAL ECF SERVICES ARE REQUIRED TO BE GIVEN ON AN IN-PATIENT BASIS BECAUSE OF THE ABOVE NAMED PATIENT'S NEED FOR [facility] CARE ON A CONTINUING BASIS FOR THE CONDITION(S) FOR WHICH HE/SHE WAS RECEIVING IN-PATIENT HOSPITAL SERVICES PRIOR TO HIS/HER TRANSFER TO THE F. 07/31/23 1147<Electronically signed by Tunde Miller DO> Diet Diet Order/Speech Therapy: 07/30/23 12:06 ADA [Diet: Cardiac: Calorie-Controlled] Is pt able to select menu?: Yes How many daily calories?: 1800 calorie Routine Orders/Code Status O2 Liters per Minute: 2 O2 Frequency: Continuous Keep PO Greater than or Equal to (%): 90 Routine Lab Work: - (Fingerstick blood sugars AC nightly, sliding scale Humalog per result: 200-250: 5 units subcu, 251-300: 8 units subcu, 301-350: 12 units subcu) Code Status: Full Code Therapies Weight Bearing: Full weight bearing Problem/Diagnosis (1) CHF (congestive heart failure): Status: Acute Code(s): I50.9 - Heart failure, unspecified (2) Chronic pain of both knees: Status: Chronic Code(s): M25.561 - Pain in right knee; M25.562 - Pain in left knee; G89.29 - Other chronic pain Plan 1. Acute hypoxia secondary to acute on chronic diastolic congestive heart failure-pulse ox will be monitored, patient is on nasal cannula oxygen. #2 acute on chronic diastolic congestive heart failure-continue IV diuresis, monitor labs #3 type 2 diabetes-patient was placed on sliding scale insulin and Lantus insulin, he takes U-500 insulin at home #4 chronic anxiety/depression-patient will continue Paxil #5 GERD-patient is on a PPI #6 Chronic iron deficiency anemia-patient will be placed on an iron supplement #7 stage IIIb chronic kidney disease-complicates care, management, recovery, andprognosis, labs will be monitored #8 hypokalemia-potassium supplementation was given, labs will be monitored Total clinical time spent by myself addressing the patient's medical issues, reviewing all of his data, and collaborating with patient's care team: 35 minutes Allergies/Procedures Done in Hospital Allergies No Known Allergies Allergy (Verified 07/28/23 14:40) Procedures: None Type of Care/Length of Stay Estimated LOS: Convalescent Care Less Than 30 days Type of Care Needed: Skilled Rehab Potential: Good Prognosis: Good Additional Orders/Day of Discharge H&P will serve as current which was dated: 07/28/23 Day of Discharge: 07/31/23 Dietary and Speech Recommendations Dietitian Recommendations/Changes: Discharge Plan Admission Admit Date/Time: 07/28/23 21:35 Primary Reason for Your Visit: Congestive heart failure Attending Provider: Tunde Miller Primary Care Provider: Mery Raymond Consulting Providers: Narendra Schwartz Discharge Orders/Prescriptions Prescriptions: New hydralazine 25 mg Tablet 25 mg PO TID Qty: 0 0RF losartan 25 mg Tablet 25 mg PO DAILY Qty: 0 0RF oxycodone 5 mg Tablet 5 mg PO Q4H PRN PRN (Reason: Pain Score 6-10) 2 Days Qty: 10 0RF sucralfate 1 gram Tablet 1 g PO 1HR_ACHS Qty: 0 0RF sennosides-docusate sodium [Stool Softener-Stimulant Laxat] 8.6-50 mg Tablet 2 tab PO BID Qty: 0 0RF insulin glargine-yfgn 100 unit/mL (3 mL) Insulin Pen 15 unit subcut BID Qty: 0 0RF potassium chloride 20 mEq Tablet,Er Particles/Crystals 20 meq PO BIDCM Qty: 0 0RF Continued cinacalcet 30 mg tablet 30 mg PO BID Qty: 60 8RF albuterol sulfate 90 mcg/actuation HFA aerosol inhaler 2 puff inhalation Q6H PRN (Reason: shortness of breath or wheezing) amlodipine 5 mg tablet 10 mg PO DAILY clopidogrel 75 mg tablet 75 mg PO DAILY Qty: 90 3RF fenofibrate micronized 200 mg capsule 200 mg PO DAILY Qty: 30 12RF losartan 25 mg tablet 25 mg PO DAILY Qty: 90 3RF Hold Instructions: until you see nephrology ranolazine 500 mg tablet extended release 12 hr 500 mg PO BID Qty: 180 3RF ferrous sulfate 325 mg (65 mg iron) tablet 325 mg PO DAILY Qty: 90 1RF paroxetine HCl 40 mg tablet 40 mg PO DAILY Qty: 30 1RF pantoprazole 40 mg tablet,delayed release (DR/EC) 40 mg PO DAILY Qty: 90 1RF metoprolol succinate 50 mg tablet extended release 24 hr 50 mg PO Q12H Qty: 60 11RF Changed furosemide 40 mg tablet 40 mg PO BID Qty: 30 1RF Discontinued (DME) Handicap Placard See Rx Instructions .ROUTE .MEDSUPPLY Qty: 1 0RF Rx Instructions: As directed, length of time 3 years (DME) FreeStyle Tiffanie 2 Riparius Misc See Rx Instructions .ROUTE .MEDSUPPLY Qty: 1 0RF Rx Instructions: As directed nitroglycerin 0.4 mg tablet, sublingual 0.4 mg sublingual Q5M PRN (Reason: chest pain) Rx Instructions: do not exceed 3 doses per episode (DME) FreeStyle Tiffanie 2 Sensor Kit See Rx Instructions .ROUTE .MEDSUPPLY Qty: 2 6RF Rx Instructions: As directed lidocaine 5 % Adhesive Patch,Medicated 1 patch topical DAILY Qty: 15 1RF Protocol: *Topical Application Instructions APPLICATION INSTRUCTIONS: Right knee Rx Instructions: For use on right knee oxycodone 5 mg Tablet 5 mg PO Q4H PRN PRN (Reason: Pain Score 6-10) 3 Days Qty: 7 0RF Trulicity 1.5 mg/0.5 mL pen injector 1.5 mg subcut QWEEK (DME) OneTouch Verio test strips Strip See Rx Instructions .ROUTE .MEDSUPPLY Rx Instructions: daily Ozempic 1 mg/dose (4 mg/3 mL) pen injector 0.1333 mg subcut QWEEK Humulin R U-500 (Conc) Kwikpen 500 unit/mL (3 mL) insulin pen 30 unit subcut TID Patient Comments: takes 30 or less depending on appetite or meal (DME) pen needle, diabetic [BD Ultra-Fine Lorie Pen Needle] 32 gauge x 5/32 needle See Rx Instructions .ROUTE .MEDSUPPLY Qty: 360 5RF Rx Instructions: 4x/day No Action potassium chloride 20 mEq tablet,ER particles/crystals 20 meq PO BID Patient Comments: TAKE ONE (1) TABLET BY MOUTH TWICE DAILY FOR POTASSIUM sucralfate 1 gram tablet 1 g PO 4X/DAY hydralazine 25 mg tablet 25 mg PO TID Qty: 90 2RF Referrals / Follow Up: Mery Raymond MD [Primary Care Provider] - Disposition Disposition (needs filled in before D/C Order can be placed): Group Home Facility 07/31/23 1147 <Electronically signed by Tunde Miller DO> Cosigner Signature (if applicable): CC: Dr. Mery Raymond MD; Dr. Narendra Schwartz MD ~ [facility] Work Phone: Discharge summary Author Tunde [facility] July 31, 2023 11:51am Note Date/Time July 31, 2023 11: 51am [facility] Medical Records Department [address] [place] [id number] Discharge Summary 07/31/23 1147 MR#: [id number] Acct: [id number] Name: SHADE TEIXEIRA Rep #:[id number] : 1955 67 From: Tunde Miller DO PCP: Dr. Mery Raymond MD Status:A DM IN [facility] Providers Date of Admission: 07/28/23 Date of Discharge: 07/31/23 Primary Care Physician: Dr. Mery Raymond MD Reason For Visit: CHF EXACERBATION Diagnosis Discharge Diagnosis (1) CHF (congestive heart failure): Status: Acute Code(s): I50.9 - Heart failure, unspecified (2) Chronic pain of both knees: Status: Chronic Code(s): M25.561 - Pain in right knee; M25.562 - Pain in left knee; G89.29 - Other chronic pain Plan 1. Acute hypoxia secondary to acute on chronic diastolic congestive heart failure-pulse ox will be monitored, patient is on nasal cannula oxygen. #2 acute on chronic diastolic congestive heart failure-continue IV diuresis, monitor labs #3 type 2 diabetes-patient was placed on sliding scale insulin and Lantus insulin, he takes U-500 insulin at home #4 chronic anxiety/depression-patient will continue Paxil #5 GERD-patient is on a PPI #6 Chronic iron deficiency anemia-patient will be placed on an iron supplement #7 stage IIIb chronic kidney disease-complicates care, management, recovery, andprognosis, labs will be monitored #8 hypokalemia-potassium supplementation was given, labs will be monitored Total clinical time spent by myself addressing the patient's medical issues, reviewing all of his data, and collaborating with patient's care team: 35 minutes Medications at Discharge Home Medications clopidogrel 75 mg tablet 75 mg PO DAILY BLOOD THINNER #90 tabs 10/03/22 fenofibrate micronized 200 mg capsule 200 mg PO DAILY cholesterol #30 caps 10/20/22 losartan 25 mg tablet 25 mg PO DAILY blood pressure #90 tabs 12/08/22 ranolazine 500 mg tablet,extended release,12 hr 500 mg PO BID chest pain #180 tabs 12/20/22 cinacalcet 30 mg tablet 30 mg PO BID hypercalcemia #60 tabs 03/07/23 albuterol sulfate 90 mcg/actuation aerosol inhaler 2 puff inhalation Q6H PRN shortness of breath or wheezing 04/14/23 amlodipine 5 mg tablet 10 mg PO DAILY blood pressure 04/14/23 ferrous sulfate 325 mg (65 mg iron) tablet 325 mg PO DAILY supplement #90 tabs 05/19/23 paroxetine HCl 40 mg tablet 40 mg PO DAILY mood #30 tabs 05/19/23 pantoprazole 40 mg tablet,delayed release 40 mg PO DAILY GI #90 tabs 06/01/23 potassium chloride 20 mEq tablet,extended release(part/cryst) 20 meq PO BID suppliment 06/07/23 metoprolol succinate 50 mg tablet,extended release 24 hr 50 mg PO Q12H blood pressure #60 tabs 06/12/23 sucralfate 1 gram tablet 1 g PO 4X/DAY na 07/11/23 hydralazine 25 mg tablet 25 mg PO TID WATER PILL #90 tabs 07/19/23 furosemide 40 mg tablet 40 mg PO BID water pill #30 tabs 07/31/23 hydralazine 25 mg tablet 25 mg PO TID #0 tabs 07/31/23 insulin glargine-yfgn 100 unit/mL (3 mL) subcutaneous pen 15 unit (0.15 mL) subcut BID #0 mL 07/31/23 losartan 25 mg tablet 25 mg PO DAILY #0 tabs 07/31/23 oxycodone 5 mg tablet 5 mg PO Q4H PRN PRN Pain Score 6-10 2 days #10 tabs 07/31/23 potassium chloride 20 mEq tablet,extended release(part/cryst) 20 meq PO BIDCM #0tabs 07/31/23 sennosides 8.6 mg-docusate sodium 50 mg tablet (Stool Softener-Stimulant Laxative) 2 tab PO BID #0 tabs 07/31/23 sucralfate 1 gram tablet 1 g PO 1HR_ACHS #0 tabs 07/31/23 Hospital Course Operations None Procedures None Summary of Care Provided Minutes Spent on Discharge: 33 Hospital Course: This 67-year-old white male was seen in the emergency room at [facility] with complaints of increased shortness of breath. Workup in the emergency room included chest x-ray which indicated the patient was in congestive heart failure, he was admitted to PCU and placed on IV diuresis, he was seen by PT and OT and it was felt he would benefit from inpatient skilled placement for short-term rehab services, patient consented to this. Patient remained on oxygen at a low flow rate via nasal cannula during his hospitalization, patient had evidence of chronic kidney disease with elevated creatinine. On 07/31/2023, patient was seen and examined: On examination he appeared older than his stated age. Vital signs as documented. Skin warm and dry and without overt rashes. Neck without JVD, neck was supple, trachea midline, thyroid was normal. Lungs clear bilaterally, normal air movement was noted. Heart exam notable for irregular rhythm, normal sounds and absence of murmurs, rubs or gallops. Abdomen unremarkable and without evidence of organomegaly, masses, or abdominal aortic enlargement. Bowel sounds are present, abdomen is not distended. Extremities nonedematous, no cyanosis was noted, no clubbing was noted. Neuro: Cranial nerves II through XII are grossly intact, no focal motor deficits were noted, sensation to light touch and pinprick intact, motor exam 5/5 throughout. Psych: Patient is alert and oriented x3, he does not appear anxious or depressed, he does not appear agitated. On 07/31/2023, patient was seen and examined and felt to be in stable condition for transfer to a penitentiary facility for further care. Weight / BMI Weight Weight: 105.2 kg Body Mass Index (BMI) 33.3 ABG / Lab / Microbiology Data 07/29/23 08:05 07/31/23 06:38 Laboratory: Laboratory Results - last 24 hr 07/30/23 16:40: POC Glucose 160 H 07/30/23 22:18: POC Glucose 193 H 07/31/23 06:31: POC Glucose 123 H 07/31/23 06:38: Sodium 138, Potassium 3.7, Chloride 105, Carbon Dioxide 28.0, Anion Gap 5, BUN 37 H, Creatinine 1.82 H, Estim Creat Clear Calc 48.50, Est GFR (MDRD) Af Amer 48 L, Est GFR (MDRD) Non-Af 40 L, BUN/Creatinine Ratio 20.3 H, Glucose 125 H, Calcium 10.1 Meaningful Use Info Meaningful Use Meaningful Use Diagnoses (Choose all that apply): CHF CHF LUCIAN/ARB ordered at discharge?: Yes Documented LVEF (%): 60 Ischemic Stroke Statin Dosing Therapy Reference: STATIN DOSE THERAPY REFERENCE: * Patients > 75 years receive moderate or high dose statin therapy. * Patients 75 years or YOUNGER should receive HIGH intensity statin dose unless contraindicated. You will be required to document reason for non-treatment if statin daily dose does not meet guidelines. HIGH DOSE STATIN THERAPY DAILY Atorvastatin > than or = to 40 mg Rosuvastatin > than or = to 20 mg Amlodipine + Atorvastatin > than or = to 2.5/40 mg Ezetimibe + Simvastatin 10/80 mg Simvastatin 80mg Discharge Plan Admission Admit Date/Time: 07/28/23 21:35 Primary Reason for Your Visit: Congestive heart failure Attending Provider: Tunde Miller Primary Care Provider: Mery Raymond Consulting Providers: Narendra Schwartz Discharge Orders/Prescriptions Prescriptions: New hydralazine 25 mg Tablet 25 mg PO TID Qty: 0 0RF losartan 25 mg Tablet 25 mg PO DAILY Qty: 0 0RF oxycodone 5 mg Tablet 5 mg PO Q4H PRN PRN (Reason: Pain Score 6-10) 2 Days Qty: 10 0RF sucralfate 1 gram Tablet 1 g PO 1HR_ACHS Qty: 0 0RF sennosides-docusate sodium [Stool Softener-Stimulant Laxat] 8.6-50 mg Tablet 2 tab PO BID Qty: 0 0RF insulin glargine-yfgn 100 unit/mL (3 mL) Insulin Pen 15 unit subcut BID Qty: 0 0RF potassium chloride 20 mEq Tablet,Er Particles/Crystals 20 meq PO BIDCM Qty: 0 0RF Continued cinacalcet 30 mg tablet 30 mg PO BID Qty: 60 8RF albuterol sulfate 90 mcg/actuation HFA aerosol inhaler 2 puff inhalation Q6H PRN (Reason: shortness of breath or wheezing) amlodipine 5 mg tablet 10 mg PO DAILY clopidogrel 75 mg tablet 75 mg PO DAILY Qty: 90 3RF fenofibrate micronized 200 mg capsule 200 mg PO DAILY Qty: 30 12RF losartan 25 mg tablet 25 mg PO DAILY Qty: 90 3RF Hold Instructions: until you see nephrology ranolazine 500 mg tablet extended release 12 hr 500 mg PO BID Qty: 180 3RF ferrous sulfate 325 mg (65 mg iron) tablet 325 mg PO DAILY Qty: 90 1RF paroxetine HCl 40 mg tablet 40 mg PO DAILY Qty: 30 1RF pantoprazole 40 mg tablet,delayed release (DR/EC) 40 mg PO DAILY Qty: 90 1RF metoprolol succinate 50 mg tablet extended release 24 hr 50 mg PO Q12H Qty: 60 11RF Changed furosemide 40 mg tablet 40 mg PO BID Qty: 30 1RF Discontinued (DME) Handicap Placard See Rx Instructions .ROUTE .MEDSUPPLY Qty: 1 0RF Rx Instructions: As directed, length of time 3 years (DME) FreeStyle Tiffanie 2 Riparius Misc See Rx Instructions .ROUTE .MEDSUPPLY Qty: 1 0RF Rx Instructions: As directed nitroglycerin 0.4 mg tablet, sublingual 0.4 mg sublingual Q5M PRN (Reason: chest pain) Rx Instructions: do not exceed 3 doses per episode (DME) FreeStyle Tiffanie 2 Sensor Kit See Rx Instructions .ROUTE .MEDSUPPLY Qty: 2 6RF Rx Instructions: As directed lidocaine 5 % Adhesive Patch,Medicated 1 patch topical DAILY Qty: 15 1RF Protocol: *Topical Application Instructions APPLICATION INSTRUCTIONS: Right knee Rx Instructions: For use on right knee oxycodone 5 mg Tablet 5 mg PO Q4H PRN PRN (Reason: Pain Score 6-10) 3 Days Qty: 7 0RF Trulicity 1.5 mg/0.5 mL pen injector 1.5 mg subcut QWEEK (DME) OneTouch Verio test strips Strip See Rx Instructions .ROUTE .MEDSUPPLY Rx Instructions: daily Ozempic 1 mg/dose (4 mg/3 mL) pen injector 0.1333 mg subcut QWEEK Humulin R U-500 (Conc) Kwikpen 500 unit/mL (3 mL) insulin pen 30 unit subcut TID Patient Comments: takes 30 or less depending on appetite or meal (DME) pen needle, diabetic [BD Ultra-Fine Lorie Pen Needle] 32 gauge x 5/32 needle See Rx Instructions .ROUTE .MEDSUPPLY Qty: 360 5RF Rx Instructions: 4x/day No Action potassium chloride 20 mEq tablet,ER particles/crystals 20 meq PO BID Patient Comments: TAKE ONE (1) TABLET BY MOUTH TWICE DAILY FOR POTASSIUM sucralfate 1 gram tablet 1 g PO 4X/DAY hydralazine 25 mg tablet 25 mg PO TID Qty: 90 2RF Referrals / Follow Up: Mery Raymond MD [Primary Care Provider] - Disposition Disposition (needs filled in before D/C Order can be placed): Group Home Facility Charges/Coding Visit Charges Inpatient E&M: 03613 Disch Hosp >30min 07/31/23 1151 <Electronically signed by Tunde Miller DO> Cosigner Signature (if applicable): CC: Dr. Mery Raymond MD; Dr. Tunde Miller DO~ Signed [facility] Work Phone: Evaluation note* Diagnosis Onset Date Resolution Status Morbid obesity with BMI of 40.0-44.9, adult chronic FAVIAN (obstructive sleep apnea) chronic Secondary pulmonary hypertension chronic Fatigue acute Dyspnea on exertion chronic Essential (primary) hypertension chronic Hyperlipidemia chronic History of coronary artery stent placement May resolved Vitamin D deficiency acute Essential (primary) hypertension chronic Fatigue chronic Hypertriglyceridemia chronic Obesity acute Renal insufficiency acute Diabetes chronic Hypercalcemia chronic Vertigo, central resolved Debility acute Chronic pain of both knees c hronic Debility acute Type 2 diabetes mellitus acu te Chronic pain of both knees c hronic Essential (primary) hypertension chronic Adult failure to thrive acut e Debility acute Diabetes acute Generalized weakness acute Hypercalcemia acute [facility] Work Phone: Evaluation note* Diagnosis Onset Date Resolution Status Chronic pain of both knees c hronic Debility chronic Chronic pain of both knees c hronic Debility chronic Essential (primary) hypertension chronic Type 2 diabetes mellitus chr onic Debility chronic Vitamin D deficiency acute Hypercalcemia chronic Obesity chronic Type 2 diabetes mellitus chr onic Debility chronic Essential (primary) hypertension chronic Hypercalcemia chronic Type 2 diabetes mellitus chr onic Essential (primary) hypertension chronic Hypercalcemia chronic Hyperlipidemia chronic History of coronary artery stent placement May resolved [facility] Work Phone: Evaluation note* Diagnosis Onset Date Resolution Status Chronic pain of both knees c hronic Debility chronic Essential (primary) hypertension chronic Type 2 diabetes mellitus chr onic Debility chronic Vitamin D deficiency acute Hypercalcemia chronic Obesity chronic Type 2 diabetes mellitus chr onic Debility chronic Essential (primary) hypertension chronic Hypercalcemia chronic Type 2 diabetes mellitus chr onic Essential (primary) hypertension chronic Hypercalcemia chronic Hyperlipidemia chronic History of coronary artery stent placement May resolved Chest pain acute Hypercalcemia chronic [facility] Work Phone: Evaluation note* Diagnosis Onset Date Resolution Status Chronic pain of both knees c hronic Debility chronic Essential (primary) hypertension chronic Type 2 diabetes mellitus chr onic Debility chronic Vitamin D deficiency acute Hypercalcemia chronic Obesity chronic Type 2 diabetes mellitus chr onic Debility chronic Essential (primary) hypertension chronic Hypercalcemia chronic Type 2 diabetes mellitus chr onic Essential (primary) hypertension chronic Hypercalcemia chronic Hyperlipidemia chronic History of coronary artery stent placement October 12 resolved Chest pain acute Atherosclerosis of coronary artery of [place] without angina pectoris chronic Chronic hypoxemic respiratory failure chronic Diabetes chronic Essential (primary) hypertension chronic Hypercalcemia chronic Hyperlipidemia chronic History of coronary artery stent placement October 12 022 resolved [facility] Work Phone: Evaluation note* Diagnosis Onset Date Resolution Status Chronic pain of both knees c hronic Debility chronic Type 2 diabetes mellitus chr onic Debility chronic Vitamin D deficiency acute Hypercalcemia chronic Obesity chronic Type 2 diabetes mellitus chr onic Debility chronic Hypercalcemia chronic Type 2 diabetes mellitus chr onic Hypercalcemia chronic Hyperlipidemia chronic History of coronary artery stent placement October 12 022 resolved Chest pain acute Atherosclerosis of coronary artery of [place] without angina pectoris chronic Chronic hypoxemic respiratory failure chronic Diabetes chronic Hypercalcemia chronic Hyperlipidemia chronic History of coronary artery stent placement October 12 resolved Primary hyperparathyroidism acute [facility] Work Phone: Evaluation note* Diagnosis Onset Date Resolution Status Debility chronic Vitamin D deficiency acute Hypercalcemia chronic Obesity chronic Type 2 diabetes mellitus chr onic Debility chronic Hypercalcemia chronic Type 2 diabetes mellitus chr onic Hypercalcemia chronic Hyperlipidemia chronic History of coronary artery stent placement October 12 022 resolved Chest pain acute Atherosclerosis of coronary artery of [place] without angina pectoris chronic Chronic hypoxemic respiratory failure chronic Diabetes chronic Hypercalcemia chronic Hyperlipidemia chronic History of coronary artery stent placement October 12 resolved Primary hyperparathyroidism acute Chest pain acute Primary hyperparathyroidism acute Debility chronic Depression chronic Type 2 diabetes mellitus chr [facility] Work Phone: Evaluation note* Diagnosis Onset Date Resolution Status Vitamin D deficiency acute Hypercalcemia chronic Obesity chronic Type 2 diabetes mellitus chr onic Debility chronic Hypercalcemia chronic Type 2 diabetes mellitus chr onic Hypercalcemia chronic Hyperlipidemia chronic History of coronary artery stent placement October 12 022 resolved Chest pain acute Atherosclerosis of coronary artery of [place] without angina pectoris chronic Chronic hypoxemic respiratory failure chronic Diabetes chronic Hypercalcemia chronic Hyperlipidemia chronic History of coronary artery stent placement October 12 022 resolved Primary hyperparathyroidism acute Chest pain acute Primary hyperparathyroidism acute Debility chronic Depression chronic Type 2 diabetes mellitus chr onic Hyperparathyroidism chronic Obesity chronic Type 2 diabetes mellitus chr [facility] Work Phone: Evaluation note* Diagnosis Onset Date Resolution Status Chest pain acute Primary hyperparathyroidism acute Debility chronic Depression chronic Type 2 diabetes mellitus chr onic Hyperparathyroidism chronic Obesity chronic Type 2 diabetes mellitus chr onic MEANS (dyspnea on exertion) ac ely [place] Primary hyperparathyroidism acute Renal insufficiency acute Atherosclerosis of coronary artery of [place] without angina pectoris chronic Benign essential HTN chronic Hyperlipidemia chronic Dark stools acute Health care maintenance acut e Benign essential HTN chronic Hyperparathyroidism chronic Type 2 diabetes mellitus chr onic [facility] Work Phone: Evaluation note* Diagnosis Onset Date Resolution Status Dark stools acute Health care maintenance acut e Benign essential HTN chronic Hyperparathyroidism chronic Type 2 diabetes mellitus chr onic Diabetes acute Hyperparathyroidism chronic Anemia chronic Benign essential HTN chronic Shortness of breath chronic [facility] Work Phone: Evaluation note* Diagnosis Onset Date Resolution Status Dark stools acute Health care maintenance acut e Benign essential HTN chronic Hyperparathyroidism chronic Type 2 diabetes mellitus chr onic Diabetes acute Hyperparathyroidism chronic Anemia chronic Benign essential HTN chronic Shortness of breath chronic Primary hyperparathyroidism acute Obesity chronic Type 2 diabetes mellitus [facility] Work Phone: Evaluation note* Diagnosis Onset Date Resolution Status Dark stools acute Health care maintenance acut e Benign essential HTN chronic Hyperparathyroidism chronic Type 2 diabetes mellitus chr onic Diabetes acute Hyperparathyroidism chronic Anemia chronic Benign essential HTN chronic Shortness of breath chronic Primary hyperparathyroidism acute Obesity chronic Type 2 diabetes mellitus chr onic Primary hyperparathyroidism acute Renal insufficiency acute Atherosclerosis of coronary artery of [place] without angina pectoris chronic Benign essential HTN chronic Hyperlipidemia [facility] Work Phone: Evaluation note* Diagnosis Onset Date Resolution Status Anemia chronic Benign essential HTN chronic Shortness of breath chronic Primary hyperparathyroidism acute Obesity chronic Type 2 diabetes mellitus chr onic Primary hyperparathyroidism acute Renal insufficiency acute Atherosclerosis of coronary artery of [place] without angina pectoris chronic Benign essential HTN chronic Hyperlipidemia [facility] Work Phone: Evaluation note* Diagnosis Onset Date Resolution Status Vertigo acute Anxiety and depression chron ic Benign essential HTN chronic Hyperparathyroidism chronic Benign essential HTN chronic Hyperparathyroidism chronic Obesity chronic Type 2 diabetes mellitus chr onic Vitamin D deficiency chronic Dizziness acute Primary hyperparathyroidism acute Vitamin D deficiency chronic Debility acute Renal insufficiency acute Benign essential HTN chronic Type 2 diabetes mellitus [facility] Work Phone: Evaluation note* Diagnosis Onset Date Resolution Status Vertigo acute Anxiety and depression chron ic Benign essential HTN chronic Hyperparathyroidism chronic Benign essential HTN chronic Hyperparathyroidism chronic Obesity chronic Type 2 diabetes mellitus chr onic Vitamin D deficiency chronic Dizziness acute Primary hyperparathyroidism acute Vitamin D deficiency chronic Debility acute Olecranon bursitis acute Renal insufficiency acute Right elbow pain acute Benign essential HTN chronic Type 2 diabetes mellitus [facility] Work Phone: Evaluation note* Diagnosis Onset Date Resolution Status Vertigo acute Anxiety and depression chron ic Benign essential HTN chronic Hyperparathyroidism chronic Benign essential HTN chronic Hyperparathyroidism chronic Obesity chronic Type 2 diabetes mellitus chr onic Vitamin D deficiency chronic Dizziness acute Primary hyperparathyroidism acute Vitamin D deficiency chronic Debility acute Olecranon bursitis acute Renal insufficiency acute Right elbow pain acute Benign essential HTN chronic Type 2 diabetes mellitus chr onic Atrial fibrillation acute Chest pain acute [facility] Work Phone: Evaluation note* Diagnosis Onset Date Resolution Status Vertigo acute Anxiety and depression chron ic Benign essential HTN chronic Hyperparathyroidism chronic Benign essential HTN chronic Hyperparathyroidism chronic Obesity chronic Type 2 diabetes mellitus chr onic Vitamin D deficiency chronic Dizziness acute Primary hyperparathyroidism acute Vitamin D deficiency chronic Debility acute Renal insufficiency acute Benign essential HTN chronic Type 2 diabetes mellitus chr onic Right elbow pain resolved Atrial fibrillation acute Chest pain acute Atherosclerosis of coronary artery of [place] without angina pectoris chronic Chest discomfort chronic Diabetes chronic Hypercalcemia chronic Hypertriglyceridemia chronic History of coronary artery stent placement October 26, 2021 resolved [facility] Work Phone: Evaluation note* Diagnosis Onset Date Resolution Status Acute kidney injury acute Hypoxia acute Congestive heart failure chr onic [facility] Work Phone: Evaluation note* Diagnosis Onset Date Resolution Status Acute kidney injury acute Diabetes acute Gastric ulcer acute GI bleed acute Heart failure with preserved ejection fraction acute Hypoxia acute Lightheadedness acute Acute on chronic anemia chronic 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 Congestive heart failure chr onic Shortness of breath chronic [facility] Work Phone: Evaluation note* Diagnosis Onset Date Resolution Status Acute kidney injury acute Acute on chronic anemia chronic 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 Congestive heart failure res olved Hypoxia resolved Lightheadedness resolved Shortness of breath resolved Benign essential HTN chronic Primary hyperparathyroidism chronic Stage 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 disease (CKD) chronic Abdominal pain acute Acute GI bleeding acute Acute kidney injury acute Complaint of melena acute Hypokalemia acute longterm current use of antithrombotics/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 acute Acute on chronic anemia chronic 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 [facility] Work Phone: Evaluation note* Diagnosis Onset Date Resolution Status Acute on chronic anemia chronic 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 Acute kidney injury resolved Congestive heart failure res olved GI bleed resolved Hypoxia resolved Lightheadedness resolved Shortness of breath resolved Benign essential HTN chronic Primary hyperparathyroidism chronic Stage 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 disease (CKD) chronic longterm current use of antithrombotics/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 acute Acute on chronic anemia chronic 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 Abdominal pain resolved Acute GI bleeding resolved Acute kidney injury resolved Complaint of melena resolved GI bleed resolved Hypokalemia resolved Lower extremity edema acute Benign essential HTN chronic Stage 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 disease (CKD) chronic Type 2 diabetes mellitus chr onic GI bleed resolved GI bleed resolved [facility] Work Phone: Evaluation note* Diagnosis Onset Date Resolution Status Acute on chronic anemia chronic 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 Acute kidney injury resolved Congestive heart failure res olved GI bleed resolved Hypoxia resolved Lightheadedness resolved Shortness of breath resolved Benign essential HTN chronic Primary hyperparathyroidism chronic Stage 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 disease (CKD) chronic longterm current use of antithrombotics/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 acute Acute on chronic anemia chronic 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 Abdominal pain resolved Acute GI bleeding resolved Acute kidney injury resolved Complaint of melena resolved GI bleed resolved Hypokalemia resolved Lower extremity edema acute Benign essential HTN chronic Stage 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 disease (CKD) chronic Type 2 diabetes mellitus chr onic GI bleed resolved GI bleed resolved Dizziness acute Fall acute Intermittent chest pain acut e [facility] Work Phone: Evaluation note* Diagnosis Onset Date Resolution Status Acute on chronic anemia chronic 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 Acute kidney injury resolved Congestive heart failure res olved GI bleed resolved Hypoxia resolved Lightheadedness resolved Shortness of breath resolved Benign essential HTN chronic Primary hyperparathyroidism chronic Stage 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 disease (CKD) chronic 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 acute Acute on chronic anemia chronic 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 Abdominal pain resolved Acute GI bleeding resolved Acute kidney injury resolved Complaint of melena resolved GI bleed resolved Hypokalemia resolved Lower extremity edema acute Benign essential HTN chronic Stage 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 disease (CKD) chronic Type 2 diabetes mellitus chr onic GI bleed resolved GI bleed resolved Ambulatory dysfunction acute Chest pain acute Dizziness acute Fall acute Generalized weakness acute Intermittent chest pain acut e Vertigo acute [facility] Work Phone: Evaluation note* Diagnosis Onset Date Resolution Status Acute on chronic anemia chronic condition nurse jooa Acute kidney injury resolved Congestive heart failure res olved GI bleed resolved Hypoxia resolved Lightheadedness resolved Shortness of breath resolved Benign essential HTN chronic Primary hyperparathyroidism chronic Stage 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 disease (CKD) chronic 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 acute Acute on chronic anemia chronic 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 Abdominal pain resolved Acute GI bleeding resolved Acute kidney injury resolved Complaint of melena resolved GI bleed resolved Hypokalemia resolved Lower extremity edema acute Benign essential HTN chronic Stage 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 disease (CKD) chronic Type 2 diabetes mellitus chr onic GI bleed resolved GI bleed resolved Ambulatory dysfunction acute Generalized weakness acute Vertigo acute Dizziness resolved [facility] Work Phone: Evaluation note* Diagnosis Onset Date Resolution Status Acute on chronic anemia chronic 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 Acute kidney injury resolved Congestive heart failure res olved GI bleed resolved Hypoxia resolved Lightheadedness resolved Shortness of breath resolved Benign essential HTN chronic Primary hyperparathyroidism chronic Stage 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 disease (CKD) chronic 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 acute Acute on chronic anemia chronic 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 Abdominal pain resolved Acute GI bleeding resolved Acute kidney injury resolved Complaint of melena resolved GI bleed resolved Hypokalemia resolved Lower extremity edema acute Benign essential HTN chronic Stage 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 disease (CKD) chronic Type 2 diabetes mellitus chr onic GI bleed resolved GI bleed resolved Ambulatory dysfunction acute Generalized weakness acute Vertigo acute Dizziness resolved Atrial fibrillation acute Renal insufficiency acute Atherosclerosis of coronary artery of [place] without angina pectoris chronic Benign essential HTN chronic Hyperlipidemia chronic Primary hyperparathyroidism chronic FAVIAN (obstructive sleep apnea) chronic Secondary pulmonary hypertension chronic Morbid obesity with BMI of 40.0-44.9, adult resolved Renal insufficiency acute Atrial fibrillation acute Chest pain, unspecified acut e Generalized weakness acute Hypokalemia acute Inability to ambulate due to knee acute Right knee sprain acute [facility] Work Phone: Evaluation note* Diagnosis Onset Date Resolution Status Acute on chronic anemia chronic 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 Acute kidney injury resolved Congestive heart failure res olved GI bleed resolved Hypoxia resolved Lightheadedness resolved Shortness of breath resolved Benign essential HTN chronic Primary hyperparathyroidism chronic Stage 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 disease (CKD) chronic 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 acute Acute on chronic anemia chronic 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 Abdominal pain resolved Acute GI bleeding resolved Acute kidney injury resolved Complaint of melena resolved GI bleed resolved Hypokalemia resolved Lower extremity edema acute Benign essential HTN chronic Stage 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 disease (CKD) chronic Type 2 diabetes mellitus chr onic GI bleed resolved GI bleed resolved Ambulatory dysfunction acute Generalized weakness acute Vertigo acute Dizziness resolved Atrial fibrillation acute Renal insufficiency acute Atherosclerosis of coronary artery of [place] without angina pectoris chronic Benign essential HTN chronic Hyperlipidemia chronic Primary hyperparathyroidism chronic FAVIAN (obstructive sleep apnea) chronic Secondary pulmonary hypertension chronic Morbid obesity with BMI of 40.0-44.9, adult resolved Renal insufficiency acute [facility] Work Phone: Evaluation note* Diagnosis Onset Date Resolution Status Acute on chronic anemia chronic 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 Acute kidney injury resolved Congestive heart failure res olved GI bleed resolved Hypoxia resolved Lightheadedness resolved Shortness of breath resolved Benign essential HTN chronic Primary hyperparathyroidism chronic Stage 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 disease (CKD) chronic 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 acute Acute on chronic anemia chronic 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 Abdominal pain resolved Acute GI bleeding resolved Acute kidney injury resolved Complaint of melena resolved GI bleed resolved Hypokalemia resolved Lower extremity edema acute Benign essential HTN chronic Stage 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 disease (CKD) chronic Type 2 diabetes mellitus chr onic GI bleed resolved GI bleed resolved Ambulatory dysfunction acute Generalized weakness acute Vertigo acute Dizziness resolved Atrial fibrillation acute Renal insufficiency acute Atherosclerosis of coronary artery of [place] without angina pectoris chronic Benign essential HTN chronic Hyperlipidemia chronic Primary hyperparathyroidism chronic FAVIAN (obstructive sleep apnea) chronic Secondary pulmonary hypertension chronic Morbid obesity with BMI of 40.0-44.9, adult resolved Renal insufficiency acute Atrial fibrillation acute Chest pain, unspecified acut e Generalized weakness acute Hypokalemia acute Inability to ambulate due to knee acute Right knee sprain acute Sick sinus syndrome acute [facility] Work Phone: Evaluation note* Diagnosis Onset Date Resolution Status Acute on chronic anemia chronic 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 Acute kidney injury resolved Congestive heart failure res olved GI bleed resolved Hypoxia resolved Lightheadedness resolved Shortness of breath resolved Benign essential HTN chronic Primary hyperparathyroidism chronic Stage 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 disease (CKD) chronic 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 acute Acute on chronic anemia chronic 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 Abdominal pain resolved Acute GI bleeding resolved Acute kidney injury resolved Complaint of melena resolved GI bleed resolved Hypokalemia resolved Lower extremity edema acute Benign essential HTN chronic Stage 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 disease (CKD) chronic Type 2 diabetes mellitus chr onic GI bleed resolved GI bleed resolved Ambulatory dysfunction acute Generalized weakness acute Vertigo acute Dizziness resolved Renal insufficiency acute Atherosclerosis of coronary artery of [place] without angina pectoris chronic Benign essential HTN chronic Hyperlipidemia chronic Primary hyperparathyroidism chronic FAVIAN (obstructive sleep apnea) chronic Secondary pulmonary hypertension chronic Morbid obesity with BMI of 40.0-44.9, adult resolved Renal insufficiency acute Generalized weakness acute Chest pain, unspecified reso lved Hypokalemia resolved Inability to ambulate due to knee resolved Right knee sprain resolved Sick sinus syndrome acute Essential hypertension acute Sick sinus syndrome acute Atherosclerosis of coronary artery of [place] without angina pectoris chronic Pure hypercholesterolemia ch ronic Type 2 diabetes mellitus chr onic Presence of permanent cardiac pacemaker acute Sick sinus syndrome acute [facility] Work Phone: Evaluation note* Diagnosis Onset Date Resolution 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 acute Acute on chronic anemia chronic 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 Abdominal pain resolved Acute GI bleeding resolved Acute kidney injury resolved Complaint of melena resolved GI bleed resolved Hypokalemia resolved Lower extremity edema acute Benign essential HTN chronic Stage 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 disease (CKD) chronic Type 2 diabetes mellitus chr onic GI bleed resolved GI bleed resolved Ambulatory dysfunction acute Generalized weakness acute Vertigo acute Dizziness resolved Renal insufficiency acute Atherosclerosis of coronary artery of [place] without angina pectoris chronic Benign essential HTN chronic Hyperlipidemia chronic Primary hyperparathyroidism chronic FAVIAN (obstructive sleep apnea) chronic Secondary pulmonary hypertension chronic Morbid obesity with BMI of 40.0-44.9, adult resolved Renal insufficiency acute Generalized weakness acute Chest pain, unspecified reso lved Hypokalemia resolved Inability to ambulate due to knee resolved Right knee sprain resolved Sick sinus syndrome chronic Essential hypertension acute Atherosclerosis of coronary artery of [place] without angina pectoris chronic Pure hypercholesterolemia ch ronic Sick sinus syndrome chronic Type 2 diabetes mellitus chr onic Presence of permanent cardiac pacemaker acute Sick sinus syndrome chronic Presence of permanent cardiac pacemaker acute Sick sinus syndrome chronic Edema acute Presence of permanent cardiac pacemaker acute Renal insufficiency acute Atherosclerosis of coronary artery of [place] without angina pectoris chronic Benign essential HTN chronic Hyperlipidemia chronic Primary hyperparathyroidism chronic [facility] Work Phone: Evaluation note* Diagnosis Onset Date Resolution Status Lower extremity edema acute Benign essential HTN chronic Stage 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 disease (CKD) chronic Type 2 diabetes mellitus chr onic GI bleed resolved GI bleed resolved Ambulatory dysfunction acute Generalized weakness acute Vertigo acute Dizziness resolved Renal insufficiency acute Atherosclerosis of coronary artery of [place] without angina pectoris chronic Benign essential HTN chronic Hyperlipidemia chronic Primary hyperparathyroidism chronic FAVIAN (obstructive sleep apnea) chronic Secondary pulmonary hypertension chronic Morbid obesity with BMI of 40.0-44.9, adult resolved Renal insufficiency acute Generalized weakness acute Chest pain, unspecified reso lved Hypokalemia resolved Inability to ambulate due to knee resolved Right knee sprain resolved Sick sinus syndrome chronic Essential hypertension acute Atherosclerosis of coronary artery of [place] without angina pectoris chronic Pure hypercholesterolemia ch ronic Sick sinus syndrome chronic Type 2 diabetes mellitus chr onic Presence of permanent cardiac pacemaker acute Sick sinus syndrome chronic Presence of permanent cardiac pacemaker acute Sick sinus syndrome chronic Edema acute Presence of permanent cardiac pacemaker acute Renal insufficiency acute Atherosclerosis of coronary artery of [place] without angina pectoris chronic Benign essential HTN chronic Hyperlipidemia chronic Primary hyperparathyroidism [facility] Work Phone: Evaluation note* Diagnosis Onset Date Resolution Status Lower extremity edema acute Benign essential HTN chronic Stage 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 disease (CKD) chronic Type 2 diabetes mellitus chr onic GI bleed resolved GI bleed resolved Ambulatory dysfunction acute Generalized weakness acute Vertigo acute Dizziness resolved Renal insufficiency acute Atherosclerosis of coronary artery of [place] without angina pectoris chronic Benign essential HTN chronic Hyperlipidemia chronic Primary hyperparathyroidism chronic FAVIAN (obstructive sleep apnea) chronic Secondary pulmonary hypertension chronic Morbid obesity with BMI of 40.0-44.9, adult resolved Renal insufficiency acute Generalized weakness acute Chest pain, unspecified reso lved Hypokalemia resolved Inability to ambulate due to knee resolved Right knee sprain resolved Sick sinus syndrome chronic Essential hypertension acute Atherosclerosis of coronary artery of [place] without angina pectoris chronic Pure hypercholesterolemia ch ronic Sick sinus syndrome chronic Type 2 diabetes mellitus chr onic Presence of permanent cardiac pacemaker acute Sick sinus syndrome chronic Presence of permanent cardiac pacemaker acute Sick sinus syndrome chronic Edema acute Presence of permanent cardiac pacemaker acute Renal insufficiency acute Atherosclerosis of coronary artery of [place] without angina pectoris chronic Benign essential HTN chronic Hyperlipidemia chronic Primary hyperparathyroidism chronic Presence of permanent cardiac pacemaker acute Sick sinus syndrome chronic Acute hypoxemic respiratory failure acute CHF (congestive heart failure) acute Renal insufficiency acute Type 2 diabetes mellitus chr onic [facility] Work Phone: Evaluation note* Diagnosis Onset Date Resolution Status Lower extremity edema acute Benign essential HTN chronic Stage 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 disease (CKD) chronic Type 2 diabetes mellitus chr onic GI bleed resolved GI bleed resolved Ambulatory dysfunction acute Generalized weakness acute Vertigo acute Dizziness resolved Renal insufficiency acute Atherosclerosis of coronary artery of [place] without angina pectoris chronic Benign essential HTN chronic Hyperlipidemia chronic Primary hyperparathyroidism chronic FAVIAN (obstructive sleep apnea) chronic Secondary pulmonary hypertension chronic Morbid obesity with BMI of 40.0-44.9, adult resolved Renal insufficiency acute Generalized weakness acute Chest pain, unspecified reso lved Hypokalemia resolved Inability to ambulate due to knee resolved Right knee sprain resolved Sick sinus syndrome chronic Essential hypertension acute Atherosclerosis of coronary artery of [place] without angina pectoris chronic Pure hypercholesterolemia ch ronic Sick sinus syndrome chronic Type 2 diabetes mellitus chr onic Presence of permanent cardiac pacemaker acute Sick sinus syndrome chronic Presence of permanent cardiac pacemaker acute Sick sinus syndrome chronic Edema acute Presence of permanent cardiac pacemaker acute Renal insufficiency acute Atherosclerosis of coronary artery of [place] without angina pectoris chronic Benign essential HTN chronic Hyperlipidemia chronic Primary hyperparathyroidism chronic Presence of permanent cardiac pacemaker acute Sick sinus syndrome chronic Acute hypoxemic respiratory failure acute CHF (congestive heart failure) acute Renal insufficiency acute Chronic pain of both knees c hronic Type 2 diabetes mellitus [facility] Work Phone: Evaluation note* Diagnosis Onset Date Resolution Status Lower extremity edema acute Benign essential HTN chronic Type 2 diabetes mellitus chr onic GI bleed resolved GI bleed resolved Ambulatory dysfunction acute Generalized weakness acute Vertigo acute Dizziness resolved Renal insufficiency acute Atherosclerosis of coronary artery of [place] without angina pectoris chronic Benign essential HTN chronic Hyperlipidemia chronic Primary hyperparathyroidism chronic FAVIAN (obstructive sleep apnea) chronic Secondary pulmonary hypertension chronic Morbid obesity with BMI of 40.0-44.9, adult resolved Renal insufficiency acute Generalized weakness acute Chest pain, unspecified reso lved Hypokalemia resolved Inability to ambulate due to knee resolved Right knee sprain resolved Sick sinus syndrome chronic Essential hypertension acute Atherosclerosis of coronary artery of [place] without angina pectoris chronic Pure hypercholesterolemia ch ronic Sick sinus syndrome chronic Type 2 diabetes mellitus chr onic Presence of permanent cardiac pacemaker acute Sick sinus syndrome chronic Presence of permanent cardiac pacemaker acute Sick sinus syndrome chronic Edema acute Presence of permanent cardiac pacemaker acute Renal insufficiency acute Atherosclerosis of coronary artery of [place] without angina pectoris chronic Benign essential HTN chronic Hyperlipidemia chronic Primary hyperparathyroidism chronic Presence of permanent cardiac pacemaker acute Sick sinus syndrome chronic CHF (congestive heart failure) acute Renal insufficiency acute Chronic pain of both knees c hronic Type 2 diabetes mellitus chr onic Benign essential HTN chronic Hyperparathyroidism chronic Obesity chronic Type 2 diabetes mellitus [facility] Work Phone: Evaluation note* Diagnosis BPH with obstruction/lower urinary tract symptoms- Primary Hypertrophy of prostate with urinary obstruction and other lower urinary tract symptoms (LUTS) Urinary frequency Dysuria Prostate cancer screening Special screening for malignant neoplasm of prostate [facility] Purvi Jensen [facility] October 21, 2022 2:34am Note Date/Time October 21, 2022 1:31 am [facility] Medical Records Department [address] [place] [address] H&P Exam - Hospitalist 10/21/22 0130 MR#: [id number] Acct: [id number] Name: SHADE TEIXEIRA Rep #:[id number] : 1955 66 From: Purvi Jensen MD PCP: Dr. Mery Raymond MD Status:A DM IN Location: [place] [address] HPI - General General Date of Admission: 10/21/22 Date of Service: 10/21/22 Chief Complaint: Chest pain, dyspnea, increased edema. HPI Narrative The patient is a 66 y/o M w/ PMHx: Hyperparathyroidism with hypercalcemia, CKD stage III unclear subtype, Chronic normocytic anemia/iron deficiency anemia, Anxiety and Depression, CAD s/p PCI, Asthma, Hx VTE (DVT, PE), HTN, HLD, FAVIAN, Seizure disorder, Diabetes mellitus type II, PAF, recent admission for olecranonbursitis with right upper extremity pain treated with IV steroids, low-dose NSAIDs specifically Mobic discharged on tramadol with plan follow-up with orthopedicsurgeon Dr. Gary in 2 weeks. Who presents to the [facility] ED on 10/21/22 with history of intermittent chest discomfort for approximately 3 hours prior to ED arrival noted as a heaviness across the midportion of his chest with complaint of mild increased swelling and edema with dyspnea worse with exertion as well asrecent nonproductive cough. In the ED upon evaluation patient appears dyspneic with mild accessory muscle usage although he does improve somewhat once he is assisted to sit up at the bedside. He does state that he feels significantly short of breath but denies any current chest discomfort. Work-up in the ED included T97.7, heart rate 75, BP 179/114, respiratory rate 16, 92% on room air,CBC with WBC 6.7, hemoglobin 0.9, MCV 92.2, platelet 355 with lymphopenia, D-dimer 0.7, BMP with BUN/creatinine 32/1.72, calcium 12.1, BNP 225.1, troponin 29, chest x-ray with no acute cardiopulmonary findings, CTPA with no pulmonary embolism or evidence of acute airspace disease, nonspecific bilateral hilar adenopathy, borderline cardiomegaly with mild pulmonary vascular congestion, EKG with atrial fibrillation with no chart reported history previously but 05/2022 and recent 10/2022 admission EKGs performed demonstrated paroxysmal atrial fibrillation evidence. In the ED patient ministered aspirin 324 mg p.o. x1 as well as Lovenox 120 mg subcu x1. [facility] Medical History (Updated 10/21/22 @ 02:[address] Purvi Jensen MD) Acquired left ventricular hypertrophy Adult failure to thrive Anemia Anxiety and depression Atherosclerosis of coronary artery of [place] without angina pectoris Chronic hypoxemic respiratory failure Chronic pain of both knees Diabetes Essential (primary) hypertension History of DVT (deep vein thrombosis) History of pulmonary embolism Hypercalcemia Hyperparathyroidism Hypertriglyceridemia Morbid obesity with BMI of 40.0-44.9, adult FAVIAN (obstructive sleep apnea) Osteoarthritis Primary hyperparathyroidism Pure hypercholesterolemia Seizures Type 2 diabetes mellitus Home Medications Handicap Placard #1 ea 04/08/20 [Rx Last Taken Unknown] flash glucose scanning reader ([employer] Tiffanie 2 Riparius) #1 ea 02/16/21 [Rx Last Taken Unknown] flash glucose sensor (FreeStyle Tiffanie 2 Sensor kit) #2 ea 02/16/21 [Rx Last Taken Unknown] metformin 1,000 mg tablet 1,000 mg PO BIDCM DIABETES #180 tabs 11/15/21 [Rx Last Taken 10/16/22] amlodipine 10 mg tablet 10 mg PO DAILY BLOOD PRESSURE #90 tabs 11/25/21 [Rx Last Taken 10/16/22] losartan 25 mg tablet 25 mg PO DAILY #90 tabs 12/06/21 [Rx Last Taken 10/16/22] ranolazine 500 mg tablet,extended release,12 hr 500 mg PO BID #180 tabs 01/11/22[Rx Last Taken 10/16/22] nitroglycerin 0.4 mg sublingual tablet See Rx Instructions .Route .COMPLEX #25 tabs 02/22/22 [Rx Last Taken Unknown] pen needle, diabetic 32 gauge x 5/32 (BD Ultra-Fine Lorie Pen Needle) #360 ea 04/08/22 [Rx Last Taken Unknown] paroxetine HCl 40 mg tablet 40 mg PO DAILY depression #90 tabs 04/12/22 [Rx Last Taken 10/16/22] potassium chloride 20 mEq tablet,extended release(part/cryst) 40 meq (2 x 20 mEq) PO TID potassium 90 days #540 tabs 08/11/22 [Rx Last Taken 10/16/22] ferrous sulfate 325 mg (65 mg iron) tablet 325 mg PO DAILY #90 tabs 08/18/22 [Rx Last Taken 10/16/22] Ozempic 1 mg/dose (4 mg/3 mL) subcutaneous pen injector (semaglutide) 1 mg (0.75mL) subcut QWEEK #3 mL 09/06/22 [Rx Last Taken 10/10/22] blood sugar diagnostic (Sola[employer] Verio test strips) #100 ea 09/06/22 [Rx Last Taken Unknown] cinacalcet 30 mg tablet 30 mg PO BID #60 tabs 09/06/22 [Rx Last Taken 10/16/22] insulin regular hum U-500 conc 500 unit/mL(3 mL) subcut pen (Humulin R U-500 (Conc) Insulin Kwikpen) 30 unit (0.06 mL) subcut .TIDCM #6 mL 09/06/22 [Rx Last Taken 10/16/22] cholecalciferol (vitamin D3) 1,250 mcg (50,000 unit) capsule 1,250 mcg PO QWEEK #8 caps 09/07/22 [Rx Last Taken 10/10/22] furosemide 20 mg tablet 40 mg (2 x 20 mg) PO BID 90 days #360 tabs 09/09/22 [Rx Last Taken 10/16/22] metoprolol succinate 50 mg tablet,extended release 24 hr 50 mg PO BID BLOOD PRESSURE #180 tabs 09/21/22 [Rx Last Taken 10/16/22] clopidogrel 75 mg tablet 75 mg PO DAILY BLOOD THINNER #90 tabs 10/03/22 [Rx Last Taken 10/16/22] insulin glargine 100 unit/mL (3 mL) subcutaneous pen (Lantus Solostar U-100 Insulin) 10 unit (0.1 mL) subcut DAILY #15 mL 10/18/22 [Rx Last Taken Unknown] tramadol 50 mg tablet 50 mg PO Q6H PRN PRN Pain Score 6-10 3 days #10 tabs 10/18/22 [Rx Last Taken Unknown] acetaminophen 325 mg tablet 650 mg PO Q4H PRN Pain 1-10 Or Fever>100.7 10/20/22 [History Last Taken Unknown] acetaminophen 650 mg rectal suppository 650 mg MA Q4H PRN fever or pain 10/20/22[History Last Taken Unknown] aluminum-magnesium hydroxide 225 mg-200 mg/5 mL oral suspension 30 ml PO DAILY PRN GI DISTRESS 10/20/22 [History Last Taken Unknown] bisacodyl 10 mg rectal suppository 10 mg MA DAILY PRN constipation 10/20/22 [History Last Taken Unknown] dextrose 40 % oral gel (Glucose Gel) 15 g PO Q15M PRN hypoglycemia 10/20/22 [History Last Taken Unknown] fenofibrate micronized 200 mg capsule 200 mg PO DAILY #30 caps 10/20/22 [Rx Last Taken Unknown] glucagon HCl 1 mg solution for injection (Glucagon (HCl) Emergency Kit) 1 mg IM Q20M PRN hypoglycemia 10/20/22 [History Last Taken Unknown] guaifenesin 200 mg/5 mL oral liquid 200 mg PO Q4H PRN congestion 10/20/22 [History Last Taken Unknown] magnesium hydroxide 400 mg/5 mL oral suspension (Milk of Magnesia) 30 ml PO DAILY PRN constipation 10/20/22 [History Last Taken Unknown] sodium phosphates 19 gram-7 gram/118 mL enema (Enema) 118 ml MA DAILY PRN constipation 10/20/22 [History Last Taken Unknown] Allergy/AdvReac Type Severity Reaction Status Date / Time No Known Allergies Allergy Verified 10/20/22 22:49 Family History Mother Colon cancer Sister CAD (coronary artery disease) CABG x 5 Diabetes Myocardial infarction, Onset Age: 67 Father Crohns disease Surgical History History of appendectomy History of appendectomy 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) History of coronary artery stent placement (10/12/21) History of eye surgery History of hip replacement History of intestinal surgery History of knee surgery History of tonsillectomy and adenoidectomy Social History household members: none housing: apartment other: Hx working in [employer] Smoking Status: Never smoker second hand exposure: Yes alcohol intake: former year quit: 2003 details: Sober since 2003. substance use type: former substance user Date of last use: 04/10/2004 and marijuana caffeine: Yes Type: carbonated beverages Number of servings: 2 and coffee Number of servings: 2 what type of physical activity do you participate in: none ROS ROS Narrative Admission Review of Systems: CONSTITUTIONAL: No weight loss, fever, chills, + weakness or fatigue. HEENT: Eyes: No visual loss, blurred vision, double vision or yellow sclerae. Ears, Nose, Throat: No hearing loss, sneezing, runny nose or sore throat. SKIN: No rash or itching, lesions, wounds. CARDIOVASCULAR: + chest pain, chest pressure or chest discomfort, palpitations, edema, orthopnea. No syncopal events. RESPIRATORY: + shortness of breath, No cough or sputum, wheezing, hemoptysis. GASTROINTESTINAL: No anorexia, nausea, emesis, diarrhea, abdominal pain, melena,BRBPR. GENITOURINARY: No dysuria, frequency, urgency or retention. NEUROLOGICAL: No dizziness, headache, syncope, paralysis, ataxia, numbness or tingling in the extremities, focal weakness, change in bowel or bladder control,seizure. MUSCULOSKELETAL: + muscle, back pain, joint pain or stiffness. HEMATOLOGIC: + anemia, bleeding or bruising. LYMPHATICS: No enlarged nodes. No history of splenectomy. PSYCHIATRIC: + history of depression or anxiety. ENDOCRINOLOGIC: No reports of sweating, cold or heat intolerance. No polyuria orpolydipsia. ALLERGIES: No history of asthma, hives, eczema or rhinitis. Vital Signs Vital Signs Vital Signs: 10/20/22 22:50 10/20/22 22:55 10/20/22 23:07 Temperature 97.7 F L Temperature Source Temporal Pulse Rate 75 Respiratory Rate 16 Blood Pressure 179/114 H Blood Pressure Mean 135 Pulse Ox 92 Oxygen Delivery Method Room Air Room Air Weight Weight: 270 lb 15.17 oz Body Mass Index (BMI) 38.8 Physical Exam Narrative Physical Examination: General: Awake, alert, oriented x 3 and cooperative, seated upright in the ED bed, denies current chest pain but notes dyspnea, evidence mild accessory muscleusage. Skin: Normal color, normal turgor, no icterus, no cyanosis except chronic bilateral lower extremity lymphedema with chronic venous stasis skin changes. HEENT: AT/NC, EOMI, PERRLA, mildly dry MM, no carotid bruits, + JVD noted; however, difficult exam as notable thickened neck. Lungs: Mildly diminished, greater bases, mildly increased RR and mild accessory muscle usage noted, no overt rales, ronchi or wheezing. Heart: Irregular, rate controlled; no gallop, rub audible. Abdomen: Soft, obese, NTTP, ND, distant normal BS, no HSM. Extremities: No cyanosis, no clubbing, chronic bilateral lower extremity lymphedema 2+ pitting with chronic venous stasis skin changes. Neurological: Patient awake, alert, oriented as noted, cognitive function intact; pupils equally reactive to light and accommodation, cranial nerves II-XII grossly normal, moving all 4 extremities, no focal deficits, strength severely globally decreased secondary to acute presentation. Psychiatric: Affect appears fatigued, appears dyspneic, no acute evidence of depressive or anxiety feelings but does have underlying history. Results Lab / Micro Data 10/20/22 23:00 10/20/22 23:00 Labs: Laboratory Results - last 24 hr 10/20/22 23:00: WBC 6.7, RBC 4.09 L, Hgb 11.9 L, Hct 37.7 L, MCV 92.2, MCH 29.1,MCHC 31.6 L, RDW Std Deviation 46.5 H, RDW Coeff of Thao 13.8, Plt Count 355, MPV10.3, Immature Gran % (Auto) 0.600, Neut % (Auto) 74.2 H, Lymph % (Auto) 9.1 L, Alpine % (Auto) 12.7 H, Eos % (Auto) 2.7, Baso % (Auto) 0.7, Absolute Neuts (auto)5.0, Absolute Lymphs (auto) 0.61 L, Nucleated RBC % 0, D-Dimer Quant (PE/DVT) 0.70 H*, Sodium 139, Potassium 4.6, Chloride 104, Carbon Dioxide 28.0, Anion Gap7, BUN 32 H, Creatinine 1.72 H, Estim Creat Clear Calc 44.21, Est GFR (MDRD) Af Amer 51 L, Est GFR (MDRD) Non-Af 43 L, BUN/Creatinine Ratio 18.6, Glucose 126 H,Calcium 12.1 H, Troponin I High Sens 29, B-Natriuretic Peptide 225.1 H Radiology Impression Chest X-Ray 10/20/22 23:15 IMPRESSION: No radiographic evidence of acute cardiopulmonary disease. Electronically Signed: Brown Russ MD at 0:21 EDT , Chest CTA 10/21/22 00:03 IMPRESSION: No pulmonary embolism or evidence of acute airspace disease. Nonspecific bilateral hilar adenopathy. Borderline cardiomegaly with mild pulmonary vascular congestion. Electronically Signed: Brown Russ MD at 1:01 EDT , Assessment & Plan Assessment/Plan (1) Atrial fibrillation: PLAN: Plan The patient is a 66 y/o M w/ PMHx: Hyperparathyroidism with hypercalcemia, CKD stage III unclear subtype, Chronic normocytic anemia/iron deficiency anemia, Anxiety and Depression, CAD s/p PCI, Asthma, Hx VTE (DVT, PE), HTN, HLD, FAVIAN, Seizure disorder, Diabetes mellitus type II, PAF, recent admission for olecranonbursitis with right upper extremity pain treated with IV steroids, low-dose NSAIDs specifically Mobic discharged on tramadol with plan follow-up with orthopedic surgeon Dr. Gary in 2 weeks. Who presents to the [facility] ED on 10/21/22 with history of intermittent chest discomfort for approximately 3 hours prior to ED arrival noted as a heaviness across the midportion of his chest withcomplaint of mild increased swelling and edema with dyspnea worse with exertion as well as recent nonproductive cough. #1. Chest discomfort, Dyspnea, suspected in part secondary to Paroxysmal atrialfibrillation, newer onset although unclear history with associated volume overload/CHF exacerbation, unclear type: EKG in ED w/ atrial fibrillation, rate controlled. Will admit to PCU, maintain on telemetry, obtain cardiac enzyme serial set, obtain magnesium level, obtain ECHO as none noted recently, obtain TSH level, will initiate judicious IV diuresis given underlying chronic kidney disease. CHADs scoring appropriate for anticoagulation start at this time w/ Lovenox initiated in the ED however will transition to oral Eliquis therapy. Jillianll continue oral metoprolol regimen. Low threshold to involve Cardiology pending results and response to treatment. #2. Recent right olecranon bursitis: Evaluated inpatient with treatment with short course anti-inflammatory as well as steroids with discharge on tramadol with plan follow-up outpatient with orthopedic surgeon Dr. Gary. #3. Hyperparathyroidism with hypercalcemia: Admission BMP with calcium 12.1, will obtain hepatic profile to assess for corrected Ca++ and request ICa, maintained on Cinacalcet regimen. Pending results may need further adjustment and more aggressive outpatient follow-up. #4. CAD: Status post PCI LAD PTCA/DANIEL 2016 and OM1 PCI 10/2021, will continue home Plavix, not on statin therapy but on fenofibrate, metoprolol, losartan, Ranexa home regimen. Most recent 10/12/2021 cardiac catheterization with [place] multivessel coronary disease with staged for FFR of the LAD with referral at that time for immediate PCI of OM1. #5. Diabetes mellitus type II: Hold oral home regimen, continue home insulin regimen, ADA diet, accu checks w/ ISS. #6. Chronic Kidney Disease Stage III, unclear subtype: Admission BUN/Cr 32/1.72, baseline renal function appears primarily 1.3-1.6 more recently repeat BMP in AM. Follows with Dr. Zaragoza with nephrology. #7. Chronic normocytic anemia/iron deficiency anemia: Admission hemoglobin 11.9, MCV 92.2 baseline appears primarily 12 range, will continue to trend, continue iron supplementation. #8. Anxiety and depression: We will continue patient home Paxil regimen. #9. Hypertension: Continue home regimen including amlodipine, losartan, metoprolol, IV Lasix as noted with hold parameters as needed, PRN hydralazine. #10. Hyperlipidemia: We will continue patient home chronic fenofibrate regimen,not on statin therapy per most current list noted, FLP in AM. #11. Chart reported seizure history: Not on any antiepileptic medication, encourage continued close outpatient monitoring. #12. FAVIAN: CPAP nightly. #13. DVT prophylaxis: Eliquis being initiated as noted. #14. CODE status: Patient HCPOA and living will are not in place. Discussed CODE status at length including difference between FULL code, DNR-CCA and DNR- CCstatus. Following discussions about the differences in these status, requested Full code status. Advanced Care Planning Face to Face Time: 16 minutes. Admission Evaluation Time spent evaluating chart, patient history, patient evaluation, care planning and discussion with specialists: 76 minutes. Charges/Coding Visit Charges Inpatient E&M: 19637 Init Hosp L3 Procedures Hospitalists Procedures: 86456 Advncd Care Plan 30 Min 10/21/22 0234 <Electronically signed by Purvi Jensen MD> Cosigner Signature (if applicable): CC: Dr. Purvi Jensen MD; Dr. Mery Raymond MD~ Signed [facility] Work Phone: History and physical note Author Cornelia Burns [facility] June 07, 2023 9:51am Note Date/Time June 07, 2023 9:51am [facility] Medical Records Department [address] [place] [id number] H&P Exam - Hospitalist 06/07/23 0918 MR#: [id number] Acct: [id number] Name: SHADE TEIXEIRA Rep #:[id number] : 1955 67 From: Cornelia Burns DO PCP: Dr. Mery Raymond MD Status:R EG ER Location: ED HPI - General General Date of Admission: 06/07/23 Date of Service: 06/07/23 Chief Complaint: Inability to ambulate secondary to right knee pain HPI Narrative SHADE TEIXEIRA, is a 67 M who presented to the emergency department at [facility] early on the morning of 06/07/2023 complaining of chest pain. Extensive chest pain workup was performed and was unremarkable. Patient has known coronary disease and had a recent cardiac catheterization and is on medical therapy. Had recent follow-up with cardiology as well. He was being discharged and was unable to ambulate due to right knee pain so he came back to the emergency department stating he needed to be placed at a nursing facility for rehab. He states he is unable to take care of himself as he lives alone. He reported that he has been having ongoing knee pain however on Monday he stoodup and twisted and has been having increased pain since then with progressive worsening of pain in the joint. Previous x-rays show significant osteoarthritiswith a moderate joint effusion. Current images are pending. The patient is willing to be placed at a facility if need be. He has never seen orthopedic surgery for this not had any intervention. His x-ray shows significant medial compartment joint narrowing as well as osteoarthritis at the patellofemoral joint. He also does appear to have lateral joint compartment narrowing as well however it does not appear to be as significant as the medial joint compartment. These are x-rays from 04/26/2023. Vital signs on presentation were unremarkable. CBC shows a stable normocytic anemia with a mildly elevated white count 11.6 and a left shift. He also does appear to have a monocytosis. His chemistry panel reveals mild hypokalemia withpotassium of 3.3 and stable serum creatinine at 1.8. Blood glucose is 126. He had a recent hemoglobin A1c on 05/31/2023 at 6.8. His cardiac enzymes were cycled with an initial and delta they were 38 and 37 respectively. His EKG is unchanged from previous with no ST-T wave changes concerning for acute ischemia. Again, all imaging is pending at this time. [facility] Medical History Abnormal chest xray Acquired left ventricular hypertrophy Acute midline thoracic back pain Adult failure to thrive Alcohol abuse Anemia Anxiety and depression Arthritis Asthma Atherosclerosis of coronary artery of [place] heart without angina pectoris Atrial fibrillation Benign essential HTN BiPAP (biphasic positive airway pressure) dependence Chest pain Chronic hypoxemic respiratory failure Chronic pain Chronic pain of both knees Chronic wound of head Colon cancer screening Congestive heart failure Congestive heart failure (CHF) Dark stools Debility Depression Depression Diabetes Dizziness MEANS (dyspnea on exertion) DVT (deep venous thrombosis) Dyspnea on exertion Essential (primary) hypertension Fall Fatigue Gastric ulcer GERD (gastroesophageal reflux disease) GI bleed Health care maintenance Hearing loss, left Hearing loss, right Heart failure with preserved ejection fraction History of DVT (deep vein thrombosis) History of pulmonary embolism Hypercalcemia Hyperlipidemia Hyperparathyroidism Hypertension Hyperthyroidism Hypertriglyceridemia Hypoxia Insomnia Intermittent chest pain Irregular heart beat Kidney stones Morbid obesity with BMI of 40.0-44.9, adult Near syncope Obesity Olecranon bursitis FAVIAN (obstructive sleep apnea) Osteoarthritis Osteopenia Primary hyperparathyroidism Pure hypercholesterolemia Renal insufficiency Sciatica Secondary pulmonary hypertension Seizures Shortness of breath Sleep apnea Stage 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 disease (CKD) Type 2 diabetes mellitus Vertigo Vision loss of left eye Vision loss of right eye Vitamin D deficiency Home Medications Handicap Placard #1 ea 04/08/20 [Rx Last Taken Unknown] flash glucose scanning reader ([employer] Tiffanie 2 Riparius) #1 ea 02/16/21 [Rx Last Taken Unknown] pen needle, diabetic 32 gauge x 5/32 (BD Ultra-Fine Lorie Pen Needle) #360 ea 04/08/22 [Rx Last Taken Unknown] cholecalciferol (vitamin D3) 1,250 mcg (50,000 unit) capsule 1,250 mcg PO QWEEK supplement #8 caps 09/07/22 [Rx Last Taken 04/22/23] clopidogrel 75 mg tablet 75 mg PO DAILY BLOOD THINNER #90 tabs 10/03/22 [Rx Last Taken 02/25/23] fenofibrate micronized 200 mg capsule 200 mg PO DAILY cholesterol #30 caps 10/20/22 [Rx Last Taken Unknown] losartan 25 mg tablet 25 mg PO DAILY blood pressure #90 tabs 12/08/22 [Rx Last Taken Unknown] ranolazine 500 mg tablet,extended release,12 hr 500 mg PO BID chest pain #180 tabs 12/20/22 [Rx Last Taken Unknown] blood sugar diagnostic (OneTouch Verio test strips) #100 ea 03/07/23 [Rx Last Taken Unknown] cinacalcet 30 mg tablet 30 mg PO BID hypercalcemia #60 tabs 03/07/23 [Rx Last Taken Unknown] albuterol sulfate 90 mcg/actuation aerosol inhaler 2 puff inhalation Q6H PRN shortness of breath or wheezing 04/14/23 [History Last Taken Unknown] amlodipine 5 mg tablet 10 mg PO DAILY blood pressure 04/14/23 [History Last Taken Unknown] nitroglycerin 0.4 mg sublingual tablet 0.4 mg sublingual Q5M PRN chest pain 04/14/23 [History Last Taken Unknown] potassium chloride 20 mEq tablet,extended release 20 meq PO DAILY supplement 04/14/23 [History Last Taken Unknown] compress.stocking,knee,reg,lrg #2 ea 04/15/23 [Rx Last Taken Unknown] flash glucose sensor (FreeStyle Tiffanie 2 Sensor kit) #2 ea 04/15/23 [Rx Last Taken Unknown] semaglutide 1 mg/dose (4 mg/3 mL) subcutaneous pen injector (Ozempic) 1 mg subcut QWEEK 04/26/23 [History Last Taken Unknown] oxycodone 5 mg tablet 5 mg PO Q4H PRN PRN Pain Score 6-10 3 days #20 tabs 04/29/23 [Rx Last Taken Unknown] ferrous sulfate 325 mg (65 mg iron) tablet 325 mg PO DAILY supplement #90 tabs 05/19/23 [Rx Last Taken Unknown] furosemide 40 mg tablet 40 mg PO DAILY water pill #30 tabs 05/19/23 [Rx Last Taken Unknown] paroxetine HCl 40 mg tablet 40 mg PO DAILY mood #30 tabs 05/19/23 [Rx Last Taken Unknown] metoprolol succinate 50 mg tablet,extended release 24 hr 50 mg PO Q12H blood pressure 05/30/23 [History Last Taken Unknown] hydralazine 25 mg tablet 25 mg PO TID #90 tabs 05/31/23 [Rx Last Taken Unknown] pantoprazole 40 mg tablet,delayed release 40 mg PO DAILY #90 tabs 06/01/23 [Rx Last Taken Unknown] pantoprazole 40 mg tablet,delayed release 40 mg PO DAILY Stomach #30 tabs 06/01/23 [Rx Last Taken Unknown] sucralfate 1 gram tablet 1 g PO .QID 90 days #360 tabs 06/01/23 [Rx Last Taken Unknown] sucralfate 1 gram tablet 1 g PO .QID stomach 30 days #120 tabs 06/01/23 [Rx Last Taken Unknown] potassium chloride 20 mEq tablet,extended release(part/cryst) 20 meq PO BID 06/07/23 [History Last Taken Unknown] Allergy/AdvReac Type Severity Reaction Status Date / Time No Known Allergies Allergy Verified 06/07/23 03:28 Family History Mother Colon cancer Sister CAD (coronary artery disease) CABG x 5 Diabetes Myocardial infarction, Onset Age: 67 Father Crohns disease Surgical History History of appendectomy History of appendectomy 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 Smoking Status: Never smoker second hand exposure: Yes alcohol intake: former year quit: 2003 details: Sober since 2003. substance use type: former substance user Date of last use: 04/10/2004 and marijuana caffeine: Yes Type: carbonated beverages Number of servings: 2 and coffee Number of servings: 2 what type of physical activity do you participate in: none ROS Constitutional Constitutional: Reports weakness; Denies anorexia, change in weight, chills, fatigue, fever(s), malaise, night sweats or other Eyes Eyes: Denies blurry vision, change in eye color, change in vision, discharge from eye(s), double vision, erythema, eye pain, loss of vision or other ENT HEENT: Denies abnormal hearing, dysphagia, ear pain, epistaxis, headache(s), hearing loss, nasal congestion, nasal discharge, post nasal drip, sinus pressure, sore throat or other Cardiovascular Cardiovascular: Reports chest pain; Denies claudication, dyspnea on exertion, edema, lightheadedness, orthopnea, palpitations, paroxysmal nocturnal dyspnea, rapid heart rate, syncope or other Respiratory/Chest Respiratory/Chest: Denies cough, dyspnea, excessive phlegm production, hemoptysis, productive cough, shortness of breath at rest, shortness of breath with exertion, wheezing or other Gastrointestinal Gastrointestinal: Denies abdominal pain, coffee ground emesis, constipation, diarrhea, dyspepsia, hematemesis, hematochezia, loose stools, melena, nausea, vomiting or other Genitourinary Genitourinary: Denies burning urination, difficulty urinating, dysuria, hematuria, nocturia, urinary frequency, urinary hesitancy, urinary incontinence,urinary urgency or other Musculoskeletal Musculoskeletal: Reports joint pain, joint stiffness and joint swelling; Denies arthralgias, back pain, myalgias, neck pain or other Neurologic Neurologic: Reports abnormal gait; Denies abnormal speech, confusion, disequilibrium, dizziness, focal weakness, headache(s), numbness, paresthesias, seizure-like activity, seizures, syncope, tingling, tremor(s) or other Psychiatric Psychiatric: Reports anxiety and depression; Denies homicidal ideation, suicidalideation or other Endocrine Endocrinology: Denies change in body appearance, cold intolerance, excessive sweating, heat intolerance, polydipsia, polyuria or other Hematologic/Lymphatic Hematologic/Lymphatic: Denies anemia, easy bleeding, easy bruising, lymphadenopathy or other Allergic/Immunologic Allergic/Immunologic: Denies rhinitis, hives, eczemia, asthma or other Vital Signs Vital Signs Vital Signs: 06/07/23 03:22 06/07/23 03:29 06/07/23 03:49 Temperature 98.7 F Temperature Source Oral Pulse Rate 83 84 Respiratory Rate 12 Respiratory Effort Normal Respiratory Depth Normal Respiratory Pattern Normal Blood Pressure 164/86 H 152/88 H Blood Pressure Mean 112 Pulse Ox 93 Oxygen Delivery Method Room Air Room Air 06/07/23 03:51 06/07/23 03:34 06/07/23 03:55 Temperature Temperature Source Pulse Rate 77 Respiratory Rate Respiratory Effort Normal Respiratory Depth Respiratory Pattern Normal Blood Pressure 130/70 H Blood Pressure Mean Pulse Ox Oxygen Delivery Method Room Air 06/07/23 04:08 06/07/23 06:00 06/07/23 06:45 Temperature 97.8 F Temperature Source Pulse Rate 86 78 82 Respiratory Rate 18 16 Respiratory Effort Respiratory Depth Respiratory Pattern Blood Pressure 131/72 H 138/99 H 138/99 H Blood Pressure Mean 112 112 Pulse Ox 99 99 Oxygen Delivery Method Room Air 06/07/23 08:16 Temperature 97.0 F L Temperature Source Temporal Pulse Rate 75 Respiratory Rate 18 Respiratory Effort Respiratory Depth Respiratory Pattern Blood Pressure 144/90 H Blood Pressure Mean 108 Pulse Ox 98 Oxygen Delivery Method Room Air Weight Weight: 101.6 kg Body Mass Index (BMI) 32.1 Physical Exam Const alert, oriented x3, no apparent distress and well nourished; Negative for average body habitus Constitutional Narrative: Obese, upper middle-aged, white male, sitting in bed, appears older than stated age, currently appears comfortable and talking on cell phone at the time of my arrival, does not appear toxic General Appearance: cooperative HEENT normocephalic, head/scalp atraumatic, hearing grossly normal bilaterally and moist oral mucous membranes HEENT Narrative: Mallampati 3, no thrush, dentition is fair with several missing teeth Eyes PERRL, EOMs intact bilaterally and conjunctivae normal Eyes Narrative: No scleral icterus Neck no lymphadenopathy and supple Neck Narrative: Trachea is midline, no thyroid enlargement Resp normal respiratory effort, no retractions, no use of accessory muscles and clearto auscultation bilaterally Auscultation: Negative for rales, rhonchi or wheezes Cardio regular rate, S1 normal heart sound, S2 normal heart sound, no murmurs, no rub, no gallops and no clicks Cardio Narrative: Irregular irregular rhythm with regular rate GI normal to inspection, nondistended, normoactive bowel sounds, soft to palpation and non-tender Extremity Extremity Narrative: Bilateral lower extremity edema that is pitting in 1-2+ in nature-patient statesthis is chronic, no cyanosis or clubbing, right knee with mild joint effusion and decreased active and passive range of motion, joint changes consistent with osteoarthritis Neuro oriented x3, CN's II-XII intact bilaterally, moves all extremities and no focal motor deficits Speech: speech normal Psych affect normal Psych Narrative: Interacts appropriately, eye contact is good, patient is pleasant Results Lab / Micro Data 06/07/23 03:44 06/07/23 03:44 Labs: Laboratory Results - last 24 hr 06/07/23 03:44: WBC 11.6 H, RBC 4.14 L, Hgb 10.7 L, Hct 35.8 L, MCV 86.5, MCH 25.8 L, MCHC 29.9 L, RDW Std Deviation 51.9 H, RDW Coeff of Thao 16.5 H, Plt Count 275, MPV 9.0, Immature Gran % (Auto) 0.800, Neut % (Auto) 81.8 H, Lymph % (Auto) 3.7 L, Alpine % (Auto) 12.4 H, Eos % (Auto) 1.0, Baso % (Auto) 0.3, Absolute Neuts (auto) 9.5 H, Absolute Lymphs (auto) 0.43 L, Nucleated RBC % 0, Sodium 140, Potassium 3.3 L, Chloride 108 H, Carbon Dioxide 26.0, Anion Gap 6, BUN 31 H, Creatinine 1.80 H, Estim Creat Clear Calc 48.21, Est GFR (MDRD) Af Amer 49 L, Est GFR (MDRD) Non-Af 40 L, BUN/Creatinine Ratio 17.2, Glucose 126 H,Calcium 9.7, Troponin I High Sens 38 06/07/23 05:53: Troponin I High Sens 37 Rhythm Strip Rhythm Strip: A-fib Rate: 85 Ectopy: None Assessment & Plan Assessment/Plan (1) Right knee sprain: (2) Inability to ambulate due to knee: (3) Generalized weakness: (4) Hypokalemia: PLAN: Plan Right knee pain with resulting inability to walk and generalized weakness/debility -As needed oxycodone -Scheduled Tylenol -Lidocaine patch -Would recommend outpatient bracing and orthopedic follow-up -PT/OT consultation -Patient is amenable to placement if need be -Consult case management and social work Chronic anemia secondary to chronic renal disease -Baseline hemoglobin appears to run between 9.5 and 11 -Currently 10.7 -Continue to monitor History of GI bleed secondary to gastric ulcer -Continue Protonix 40 mg daily -Continue home Carafate -Continue outpatient GI follow-up CKD stage IIIb -Baseline serum creatinine appears to run between 1.8 and 2.1 -Current serum creatinine is 1.8 -Continue outpatient nephrology follow-up FAVIAN -Patient with history of noncompliance CAD/HTN/HPL/secondary pulmonary hypertension -Last stent was placed in October 2022 -Continue Plavix -Continue home amlodipine -Continue home hydralazine -Continue home losartan -Continue home Ranexa -Continue Lasix -Recommend ongoing outpatient follow-up with cardiology History of DVT/PE -Remote -Not on anticoagulation due to recent GI bleeds Paroxysmal atrial fibrillation -Patient is in rate controlled A-fib currently continue home beta-robinson -Patient is not anticoagulated due to GI bleeding and will discuss at his next visit with Dr. Gonzales per cardiology documentation from 05/30/2023 DM-2 -Home agents are on hold both oral and Ozempic -Add subcu SSI every 6 hours -Accu-Cheks as ordered -Patient with recent well-controlled hemoglobin A1c at 6.4 History of hypercalcemia secondary to hyperparathyroidism -Continue home medication -Check a.m. CMP to assess calcium -Continue home cinacalcet -Continue outpatient follow-up with Dr. Urias Chronic pain -Avoid NSAIDs -As needed Tylenol available -As needed oxycodone for acute knee pain Depression/anxiety -Continue home paroxetine Obesity -Weight is 32.1 -Recommend weight loss -Complicates treatment, prognosis, outcomes DVT prophylaxis -Heparin 3 times daily CODE STATUS Full Code Charges/Coding Visit Charges Inpatient E&M: 60441 Init Hosp L2 06/07/23 0951 <Electronically signed by Cornelia Burns DO> Cosigner Signature (if applicable): CC: Dr. Mery Raymond MD; Dr. Cornelia Burns DO~ Signed [facility] Work Phone: History and physical note Author Louie Gonzales [facility] Note Date/Time September 04, 2024 11:31 am [facility] Medical Records Department [address] [place] [address] History & Physical Exam 09/04/24 1129 MR#: [id number] Acct: [id number] Name: SHADE TEIXEIRA Rep #:[id number] : 1955 68 From: Louie Gonzales DO PCP: Dr. Hank Negrete MD Status:[facility] [place] Location: [place] [address] HPI - General General Date of Admission: 09/04/24 Date of Service: 09/04/24 HPI Narrative SHADE TEIXEIRA, is a 68 M who presents for evaluation of abdominal pain. BGI established 12.15.23 [facility] hospitalization 02.26.23-03.03.23 for management of GIB and CHF with HF withpreserved ejection fraction. 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 H.Pylori neg. [facility] hospitalization 03.13.23-03.18.23 for ongoing GIB with anemia requiring PRBC transfusion with chronic conditions DMII, CAD, CKD III. 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 Last OV .24 Pt doing well with no heartbrun or signs of GI bleeding. COntinues PPI and iron. No conerns at this time. EGD 4.24; - Esophageal mucosal changes consistent with short-segment Tuttle's esophagus. Biopsied. - LA Grade B erosive esophagitis with bleeding. Treated with a heater probe. - Oozing gastric ulcer with pigmented material. Injected. Treated with a heater probe. - No gross lesions in the duodenal bulb OV 3.7.25; RUQ pain starting back in 2023 after having broken ribs. Pain is sharp and worse with movements. He has noticed it is worse after eating. He denies n/v, constipation, diarrhea, blood in his stool or heartburn. [facility] Medical History Low iron Insulin dependent diabetes mellitus On home oxygen therapy Cellulitis and abscess of left leg Acute exacerbation of CHF (congestive heart failure) CKD (chronic kidney disease), stage III Major depressive disorder Peripheral vascular disease Pacemaker Obesity Acute hypoxemic respiratory failure Lives in half-way Loss of hearing Tinnitus of both ears Wears glasses Anxiety Pressure ulcer Thyroid disease Uses wheelchair Ambulates with cane Arthritis History of renal disease Hepatitis Pulmonary embolism Back pain Injury of head and neck Hypotension Dietary restriction History of ulceration History of GI bleed History of diverticulitis Non-smoker COPD (chronic obstructive pulmonary disease) Shortness of breath on exertion History of edema History of echocardiogram History of stress test Cardiology follow-up encounter Chest pain Presence of permanent cardiac pacemaker Sick sinus syndrome Alcohol abuse Depression GERD (gastroesophageal reflux disease) BiPAP (biphasic positive airway pressure) dependence Irregular heart beat Congestive heart failure (CHF) Hypertension DVT (deep venous thrombosis) Fall Intermittent chest pain Gastric ulcer GI bleed Heart failure with preserved ejection fraction Atrial fibrillation Olecranon bursitis Debility Dizziness Anxiety and depression Vertigo Shortness of breath Diabetes Asthma Anemia Dark stools Benign essential HTN MEANS (dyspnea on exertion) Osteopenia Primary hyperparathyroidism Chest pain Hyperparathyroidism Seizures Adult failure to thrive Type 2 diabetes mellitus Chronic pain of both knees Vitamin D deficiency Renal insufficiency Fatigue Arthritis Colon cancer screening Health care maintenance Acute midline thoracic back pain Hyperlipidemia Hypercalcemia Secondary pulmonary hypertension Depression Congestive heart failure Chronic wound of head Sciatica Insomnia Pure hypercholesterolemia Atherosclerosis of coronary artery of [place] heart without angina pectoris Chronic hypoxemic respiratory failure FAVIAN (obstructive sleep apnea) Dyspnea on exertion History of pulmonary embolism Acquired left ventricular hypertrophy Abnormal chest xray Near syncope Hypoxia Hypertriglyceridemia Morbid obesity with BMI of 40.0-44.9, adult Osteoarthritis History of DVT (deep vein thrombosis) Home Medications ?Medication ?Instructions ?Recorded ?Last Taken ?Type ranolazine 500 mg tablet,extended 500 mg PO BID chest pain #180 tabs 12/20/22 08/09/24 Rx release,12 hr ferrous sulfate 325 mg (65 mg 325 mg PO DAILY suppleme nt #90 tabs 05/19/23 08/09/24 Rx iron) tablet paroxetine HCl 40 mg tablet 40 mg PO DAILY mood #30 ta bs 05/19/23 08/09/24 Rx pantoprazole 40 mg tablet,delayed 40 mg PO DAILY GI #9 0 tabs 06/01/23 08/09/24 Rx release metoprolol succinate 50 mg 50 mg PO Q12H blood pressur e #60 06/12/23 08/09/24 Rx tablet,extended release 24 hr tabs sucralfate 1 gram tablet 1 g PO 1HR_ACHS GERD #0 tabs 07/31/23 08/09/24 Rx bisacodyl 10 mg rectal suppository 10 mg MA DAILY PRN constipation 08/08/23 Unknown History insulin lispro 100 unit/mL 1 sliding scale dose subcut 08/08/23 08/09/24 History subcutaneous solution (Humalog USEASDIRECTD SS U-100 Insulin) magnesium hydroxide 400 mg/5 mL 30 ml PO DAILY PRN con stipation 08/08/23 Unknown History oral suspension (Milk of Magnesia) mineral oil (Fleet Mineral Oil 118 ml MA DAILY PRN con stipation 08/08/23 Unknown History enema) hydralazine 100 mg tablet 100 mg PO TID Hypertension # 270 02/21/24 08/09/24 Rx tabs cholecalciferol (vitamin D3) 50 100 mcg PO QDAY supple ment 03/15/24 08/09/24 History mcg (2,000 unit) capsule clopidogrel 75 mg tablet 75 mg PO QDAY Anticoagulant 03/15/24 08/23/24 History nebulizer kits #1 ea 03/15/24 Unknown Rx nebulizer machine #1 ea 03/15/24 Unknown Rx semaglutide 1 mg/dose (4 mg/3 mL) 1 mg subcut FR DM 08/23/24 History subcutaneous pen injector (Ozempic) therapeutic multivitamin 1 tab PO QAM health 03/15/24 Unknown History budesonide 1 mg/2 mL suspension 1 mg (2 mL) inhalation BID COPD 05/03/24 08/09/24 Rx for nebulization #120 mL insulin glargine 100 unit/mL (3 33 unit subcut QAM Obi g acting 07/22/24 08/09/24 History mL) subcutaneous pen (Lantus Insulin Solostar U-100 Insulin) insulin lispro 100 unit/mL 5 unit subcut 0800 Glucose Control 07/22/24 08/09/24 History subcutaneous pen insulin lispro 100 unit/mL 6 unit subcut 1200 Glucose Control 07/22/24 08/08/24 History subcutaneous pen insulin lispro 100 unit/mL 8 unit subcut 1800 Glucose Control 07/22/24 08/08/24 History subcutaneous pen acetaminophen 500 mg tablet 1,000 mg PO Q8H PRN pain 0 08/01/24 Unknown History albuterol sulfate 2.5 mg/3 mL 2.5 mg inhalation BID MA N 08/01/24 Unknown History (0.083 %) solution for nebulization shortness of breat h or wheezing ammonium lactate 5 % lotion 1 applic topical QD-BID MA N dry 08/01/24 08/09/24 History skin cinacalcet 30 mg tablet 30 mg PO BID supplement 07/1008/09/24 History oxycodone 5 mg tablet 5 mg PO Q6H PRN Pain Score 6 -10 08/01/24 Unknown History fenofibrate nanocrystallized 145 145 mg PO DAILY 08/15 Unknown History mg tablet furosemide 40 mg tablet 60 mg PO QDAY water pill 12/02 Unknown History potassium chloride 20 mEq 20 meq PO QDAY Supplement #0 tabs 08/15/24 Unknown Rx tablet,extended release(part/cryst) spironolactone 25 mg tablet 25 mg PO DAILY #1 TAB 12/02 Unknown Rx Lactobacillus rhamnosus GG 10 1 cap PO BID 09/03/24 Un known History billion cell capsule (Culturelle) cefdinir 300 mg capsule 300 mg PO BID 09/03/24 Unkno wn History Allergy/AdvReac Type Severity Reaction Status Date / Time No Known Allergies Allergy Verified 09/03/24 11:58 Family History Mother Colon cancer Sister CAD (coronary artery disease) CABG x 5 Diabetes Myocardial infarction, Onset Age: 67 Father Crohns disease Surgical History History of cardiac catheterization History of appendectomy History of eye surgery History of intestinal surgery History of appendectomy History of tonsillectomy and adenoidectomy History of knee surgery History of hip replacement 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) History of coronary artery stent placement (10/21/22) Social History household members: none housing: apartment current occupational status: retired pets and animals: No other: Hx working in [employer] and [employer]. Smoking Status: Never smoker second hand exposure: Yes alcohol intake: former year quit: 2003 details: Sober since 2003. substance use type: former substance user Date of last use: 04/10/2004 and marijuana caffeine: Yes Type: carbonated beverages Number of servings: 2 and coffee Number of servings: 2 what type of physical activity do you participate in: none ROS Constitutional Constitutional: Denies fatigue, fever(s), poor appetite, weight gain or weight loss Gastrointestinal Gastrointestinal: Denies belching, bloating, change in bowel habits, change in stool character, chewing difficulty, coffee ground emesis, constipation, cramping, diarrhea, dyspepsia, dysphagia, early satiety, excessive flatus, fecalincontinence, heartburn, hematemesis, hematochezia, hemorrhoids, loose stools, melena, nausea, odynophagia, rectal bleeding, tenesmus, vomiting or weight changes Vital Signs Vital Signs Vital Signs: 09/04/24 11:08 09/04/24 11:08 Temperature 97.2 F L Temperature Source Temporal Pulse Rate 71 Respiratory Rate 16 Respiratory Pattern Normal Blood Pressure 161/79 H Blood Pressure Mean 106 Blood Pressure Source Monitor Blood Pressure Position Sitting Blood Pressure Location Left Arm Pulse Ox 100 Oxygen Delivery Method Nasal Cannula Oxygen Flow Rate (L/min) 3 Weight Weight: 270 lb Body Mass Index (BMI) 38.7 Physical Exam Const alert, oriented x3, no apparent distress and healthy appearing General Appearance: cooperative GI normal to inspection, nondistended, normoactive bowel sounds, soft to palpation,non-tender and non-distended Percussion: normal to percussion Rectal Exam: deferred Assessment & Plan Assessment/Plan (1) Right upper quadrant abdominal pain: PLAN: Assessment and Plan Assessment and Plan (1) Right upper quadrant abdominal pain: Status: Acute Plan: This is a 68 yo male pt here today for evaluation of RUQ pain. This has been ongoing since dec 2023 after he broke several ribs after a fall at the half-way. He does have a hx of gastric ulcer with last EGD in July 2023 revealing oozing gastric ulcers. He will undergo repeat EGD to assess his upper GI tract to determine etiology of his pain. He will also have a gallbladder US to rule out biliary orgin. His pain may be musculoskeletal as it began after having a fall and worsens with certain movements however food is a trigger so will rule out GI cause. -EGD -Gallbladder US -f/u after procedure Orders: Orders Gallbladder Today R10.11 - Right upper quadrant pain 09/04/24 1131 <Electronically signed by Louie Gonzales DO> Cosigner Signature (if applicable): CC: Dr. Hank Negrete MD; Louie Gonzales DO~ Signed [facility] Work Phone: [facility] Work Phone: Hospital Discharge instructionsAmbulatory Orders* Home Health Location: None Selected [facility] Work Phone: Hospital Discharge instructions Additional Instructions Increase your Lasix to 80 mg twice a day. This was discussed with your PCP. Follow-up after the weekend for recheck labs and symptoms. Return if any worsening symptoms.[facility] Work Phone: Hospital Discharge instructionsAmbulatory Orders* Phase II, Outpatient Cardiac Rehab Location: None Selected [facility] Work Phone: Reason for referral (narrative)No reason for referral information availableWChildren[facility] Work Phone: Summary Purpose Family History No Family History Records Found Relationship Condition Age at Onset Recorded Date/T harvey mother Malignant neoplasm of colon Unknown sister Coronary artery disease Unknown Diabetes mellitus Unknown Myocardial infarction 68 father Crohn's disease Unknown Advance Directives No Advanced Directives Records Found Advance Directive Response Recorded Date/ Time Advance Directives No May 11, 2021 1:06pm Living Will No July 27, 2021 12:25am Power of Wet Pour Mixer No July 27 12:25am Advance Directive Response Recorded Date/ Time Advance Directives No May 11, 2021 1:06pm Living Will Yes August 23, 2021 2 :30pm Power of Wet Pour Mixer Yes August 23, 2021 2:30pm Advance Directive Response Recorded Date/ Time Name of Medical Power of Wet Pour Mixer [place] August 23, 2021 2:30pm Advance Directives No May 11, 2021 1:06pm Living Will Yes August 23, 2021 2 :30pm Power of Wet Pour Mixer Yes August 23, 2021 2:30pm Advance Directive Response Recorded Date/ Time Name of Medical Power of Wet Pour Mixer [place] August 23, 2021 2:30pm Advance Directives No May 11, 2021 1:06pm Living Will No October 11, 2021 1 2:38am Power of Wet Pour Mixer No October 11, 2021 12:38am Advance Directive Response Recorded Date/ Time Advance Directives No November 05 9:04am Living Will No November 05, 2021 9:04am Power of Wet Pour Mixer No November 05 9:04am Name of Medical Power of Wet Pour Mixer [place] August 23, 2021 2:30pm Advance Directive Response Recorded Date/ Time Advance Directives No November 05 8:04am Living Will No November 05, 2021 8:04am Power of Wet Pour Mixer No November 05 8:04am Advance Directive Response Recorded Date/ Time Advance Directives No November 05 8:04am Living Will No May 20 023 11:37am Power of Wet Pour Mixer No May 20, 2022 11:37am Advance Directive Response Recorded Date/ Time Advance Directives No November 05 9:04am Living Will No May 20 023 12:37pm Power of Wet Pour Mixer No May 20, 2022 12:37pm Advance Directive Response Recorded Date/ Time Advance Directives No November 05 9:04am Living Will No October 16, 2022 1 1:51pm Power of Wet Pour Mixer No October 16, 2022 11:51pm Advance Directive Response Recorded Date/ Time Advance Directives No November 05 9:04am Living Will No October 17, 2022 4:00am Power of Wet Pour Mixer No October 17 4:00am Advance Directive Response Recorded Date/ Time Advance Directives No November 05 9:04am Living Will No October 20, 2022 10:50pm Power of Wet Pour Mixer No October 20 10:50pm Advance Directive Response Recorded Date/ Time Advance Directives No October 24 2:29am Living Will No October 24, 2022 2:29am Power of Wet Pour Mixer No October 24 2:29am Advance Directive Response Recorded Date/ Time Advance Directives No October 24 1:29am Living Will No February 26, 2 023 1:19am Power of Wet Pour Mixer No February 26, 2023 1:19am Advance Directive Response Recorded Date/ Time Advance Directives No October 24 1:29am Living Will No February 26, 2 023 3:29am Power of Wet Pour Mixer No February 26, 2023 3:29am Advance Directive Response Recorded Date/ Time Advance Directives No March 13, 2023 4:01pm Living Will No March 13 4:02pm Power of Wet Pour Mixer No March 13, 2023 4:02pm Advance Directive Response Recorded Date/ Time Advance Directives No March 13, 2023 4:01pm Living Will No March 13 9:24pm Power of Wet Pour Mixer No March 13, 2023 9:24pm Advance Directive Response Recorded Date/ Time Advance Directives No March 13, 2023 4:01pm Living Will No April 26 2:37pm Power of Wet Pour Mixer No April 26, 2023 2:37pm Advance Directive Response Recorded Date/ Time Advance Directives No March 13, 2023 4:01pm Living Will No April 26 8:23pm Power of Wet Pour Mixer No April 26, 2023 8:23pm Advance Directive Response Recorded Date/ Time Advance Directives No March 13, 2023 4:01pm Living Will No April 26 11:31pm Power of Wet Pour Mixer No April 26, 2023 11:31pm Advance Directive Response Recorded Date/ Time Advance Directives No March 13, 2023 4:01pm Living Will No June 07 3:30am Power of Wet Pour Mixer No June 07, 2023 3:30am Advance Directive Response Recorded Date/ Time Advance Directives No March 13, 2023 4:01pm Living Will No June 07 10:26am Power of Wet Pour Mixer No June 07, 2023 10:26am Advance Directive Response Recorded Date/ Time Advance Directives No June 18 8:36am Living Will No June 19, 2023 8:36am Power of Wet Pour Mixer No June 18 8:36am Advance Directive Response Recorded Date/ Time Advance Directives No June 18 8:36am Living Will No July 11, 2023 10:12am Power of Wet Pour Mixer No July 10 10:12am Advance Directive Response Recorded Date/ Time Advance Directives No June 18 8:36am Living Will No July 20, 2023 3:25pm Power of Wet Pour Mixer No July 19 3:25pm Advance Directive Response Recorded Date/ Time Advance Directives No June 18 8:36am Living Will No July 28, 2023 2:39pm Power of Wet Pour Mixer No July 27 2:39pm Advance Directive Response Recorded Date/ Time Advance Directives No June 18 8:36am Living Will No July 28, 2023 10:47pm Power of Wet Pour Mixer No July 27 10:47pm Advance Directive Response Recorded Date/ Time Advance Directives No June 18 8:36am Living Will No August 11, 2023 5: 28pm Power of Wet Pour Mixer No August 11, 2023 5:28pm Advance Directive Response Recorded Date/ Time Living Will No October 25, 2023 5:29am Do you have a Healthcare Power of Wet Pour Mixer? No October 25, 2023 5:29am Advance Directives No June 18 8:36am Advance Directive Response Recorded Date/ Time Living Will No October 25, 2023 5:29am Do you have a Healthcare Power of Wet Pour Mixer? No October 25, 2023 5:29am Do you have a Healthcare Power of Wet Pour Mixer? No September 03, 2024 12:16pm Do you have a Healthcare Power of Wet Pour Mixer? No August 09, 2024 4:51pm Advance Directives No June 18 8:36am Chief Complaint and Reason for Visit Chief Complaint 6 M FU 6 M FU E ORDERS 3 M FU VERTIGO, ? TIA/CVA VERTIGO, ? TIA/CVA VERTIGO, ? TIA/CVA VERTIGO, ? TIA/CVA WEAKNESS Hospital FU BILAT SHOULDER PAIN/BILAT KNEE PAIN 4wk f/u DEBILITY Reason for Visit Morbid obesity with BMI of 40.0-44.9, adult FAVIAN (obstructive sleep apnea) Secondary pulmonary hypertension Fatigue Dyspnea on exertion Essential (primary) hypertension Hyperlipidemia History of coronary artery stent placement Vitamin D deficiency Essential (primary) hypertension Fatigue Hypertriglyceridemia Obesity Renal insufficiency Diabetes Hypercalcemia Vertigo, central Debility Chronic pain of both knees Debility Type 2 diabetes mellitus Chronic pain of both knees Essential (primary) hypertension Adult failure to thrive Debility Diabetes Generalized weakness Hypercalcemia Chief Complaint 6 M FU E ORDERS 3 M FU VERTIGO, ? TIA/CVA VERTIGO, ? TIA/CVA VERTIGO, ? TIA/CVA VERTIGO, ? TIA/CVA WEAKNESS Hospital FU BILAT SHOULDER PAIN/BILAT KNEE PAIN 4wk f/u DEBILITY DEBILITY DEBILITY DEBILITY DEBILITY [facility] FU abn labs Reason for Visit Fatigue Dyspnea on exertion Essential (primary) hypertension Hyperlipidemia History of coronary artery stent placement Vitamin D deficiency Essential (primary) hypertension Fatigue Hypertriglyceridemia Renal insufficiency Diabetes Hypercalcemia Obesity Vertigo, central Chronic pain of both knees Chronic pain of both knees Essential (primary) hypertension Type 2 diabetes mellitus Vitamin D deficiency Hypercalcemia Obesity Type 2 diabetes mellitus Chief Complaint Hospital FU BILAT SHOULDER PAIN/BILAT KNEE PAIN 4wk f/u DEBILITY DEBILITY DEBILITY DEBILITY DEBILITY [facility] FU abn labs [facility] FU 3 M FU E ORDERS Reason for Visit Chronic pain of both knees Debility Chronic pain of both knees Debility Essential (primary) hypertension Type 2 diabetes mellitus Debility Vitamin D deficiency Hypercalcemia Obesity Type 2 diabetes mellitus Debility Essential (primary) hypertension Hypercalcemia Type 2 diabetes mellitus Essential (primary) hypertension Hypercalcemia Hyperlipidemia History of coronary artery stent placement Chief Complaint BILAT SHOULDER PAIN/ BILAT KNEE PAIN 4wk f/u DEBILITY DEBILITY DEBILITY DEBILITY DEBILITY [facility] FU abn labs [facility] FU 3 M FU E ORDERS CHEST PAIN, HYPERCALEMIA Reason for Visit Chronic pain of both knees Debility Essential (primary) hypertension Type 2 diabetes mellitus Debility Vitamin D deficiency Hypercalcemia Obesity Type 2 diabetes mellitus Debility Essential (primary) hypertension Hypercalcemia Type 2 diabetes mellitus Essential (primary) hypertension Hypercalcemia Hyperlipidemia History of coronary artery stent placement Chest pain Hypercalcemia Chief Complaint BILAT SHOULDER PAIN/ BILAT KNEE PAIN 4wk f/u DEBILITY DEBILITY DEBILITY DEBILITY DEBILITY [facility] FU abn labs [facility] FU 3 M FU E ORDERS CHEST PAIN, HYPERCALEMIA CHEST PAIN, HYPERCALEMIA CHEST PAIN, HYPERCALEMIA CHEST PAIN, HYPERCALEMIA CHEST PAIN, HYPERCALEMIA CHEST PAIN, HYPERCALEMIA CHEST PAIN, HYPERCALEMIA CHEST PAIN, HYPERCALEMIA Reason for Visit Chronic pain of both knees Debility Essential (primary) hypertension Type 2 diabetes mellitus Debility Vitamin D deficiency Hypercalcemia Obesity Type 2 diabetes mellitus Debility Essential (primary) hypertension Hypercalcemia Type 2 diabetes mellitus Essential (primary) hypertension Hypercalcemia Hyperlipidemia History of coronary artery stent placement Chest pain Atherosclerosis of coronary artery of [place] heart without angina pectoris Chronic hypoxemic respiratory failure Diabetes Essential (primary) hypertension Hypercalcemia Hyperlipidemia History of coronary artery stent placement Chief Complaint 4wk f/u DEBILITY DEBILITY DEBILITY DEBILITY DEBILITY [facility] FU abn labs [facility] FU 3 M FU E ORDERS CHEST PAIN, HYPERCALEMIA CHEST PAIN, HYPERCALEMIA CHEST PAIN, HYPERCALEMIA CHEST PAIN, HYPERCALEMIA CHEST PAIN, HYPERCALEMIA CHEST PAIN, HYPERCALEMIA CHEST PAIN, HYPERCALEMIA CHEST PAIN, HYPERCALEMIA CHEST PAIN, HYPERCALEMIA CHEST PAIN, HYPERCALEMIA PARATHYROID HYPERPARATHYROIDISM Reason for Visit Chronic pain of both knees Debility Type 2 diabetes mellitus Debility Vitamin D deficiency Hypercalcemia Obesity Type 2 diabetes mellitus Debility Hypercalcemia Type 2 diabetes mellitus Hypercalcemia Hyperlipidemia History of coronary artery stent placement Chest pain Atherosclerosis of coronary artery of [place] heart without angina pectoris Chronic hypoxemic respiratory failure Diabetes Hypercalcemia Hyperlipidemia History of coronary artery stent placement Primary hyperparathyroidism Chief Complaint DEBILITY DEBILITY DEBILITY DEBILITY DEBILITY [facility] FU abn labs [facility] FU 3 M FU E ORDERS CHEST PAIN, HYPERCALEMIA CHEST PAIN, HYPERCALEMIA CHEST PAIN, HYPERCALEMIA CHEST PAIN, HYPERCALEMIA CHEST PAIN, HYPERCALEMIA CHEST PAIN, HYPERCALEMIA CHEST PAIN, HYPERCALEMIA CHEST PAIN, HYPERCALEMIA CHEST PAIN, HYPERCALEMIA CHEST PAIN, HYPERCALEMIA PARATHYROID HYPERPARATHYROIDISM [facility] FU Reason for Visit Debility Vitamin D deficiency Hypercalcemia Obesity Type 2 diabetes mellitus Debility Hypercalcemia Type 2 diabetes mellitus Hypercalcemia Hyperlipidemia History of coronary artery stent placement Chest pain Atherosclerosis of coronary artery of [place] without angina pectoris Chronic hypoxemic respiratory failure Diabetes Hypercalcemia Hyperlipidemia History of coronary artery stent placement Primary hyperparathyroidism Chest pain Primary hyperparathyroidism Debility Depression Type 2 diabetes mellitus Chief Complaint [facility] FU abn labs [facility] FU 3 M FU E ORDERS CHEST PAIN, HYPERCALEMIA CHEST PAIN, HYPERCALEMIA CHEST PAIN, HYPERCALEMIA CHEST PAIN, HYPERCALEMIA CHEST PAIN, HYPERCALEMIA CHEST PAIN, HYPERCALEMIA CHEST PAIN, HYPERCALEMIA CHEST PAIN, HYPERCALEMIA CHEST PAIN, HYPERCALEMIA CHEST PAIN, HYPERCALEMIA PARATHYROID HYPERPARATHYROIDISM [facility] FU 3 M FU E-ORDER Reason for Visit Vitamin D deficiency Hypercalcemia Obesity Type 2 diabetes mellitus Debility Hypercalcemia Type 2 diabetes mellitus Hypercalcemia Hyperlipidemia History of coronary artery stent placement Chest pain Atherosclerosis of coronary artery of [place] without angina pectoris Chronic hypoxemic respiratory failure Diabetes Hypercalcemia Hyperlipidemia History of coronary artery stent placement Primary hyperparathyroidism Chest pain Primary hyperparathyroidism Debility Depression Type 2 diabetes mellitus Hyperparathyroidism Obesity Type 2 diabetes mellitus Chief Complaint HYPERPARATHYROIDISM [facility] FU 3 M FU E-ORDER *SPECT* HYPERPARATHYROIDISM, OSSTEOPENIA CP 3 M FU Reason for Visit Chest pain Primary hyperparathyroidism Debility Depression Type 2 diabetes mellitus Hyperparathyroidism Obesity Type 2 diabetes mellitus MEANS (dyspnea on exertion) Primary hyperparathyroidism Renal insufficiency Atherosclerosis of coronary artery of [place] without angina pectoris Benign essential HTN Hyperlipidemia Dark stools Health care maintenance Benign essential HTN Hyperparathyroidism Type 2 diabetes mellitus Chief Complaint 3 M FU High Calcium, Diabetes Acute INT LABS 3 m fu EORDER SOB Reason for Visit Dark stools Health care maintenance Benign essential HTN Hyperparathyroidism Type 2 diabetes mellitus Diabetes Hyperparathyroidism Anemia Benign essential HTN Shortness of breath Chief Complaint 3 M FU High Calcium, Diabetes Acute INT LABS 3 m fu EORDER SOB 3 M FU EORDER Reason for Visit Dark stools Health care maintenance Benign essential HTN Hyperparathyroidism Type 2 diabetes mellitus Diabetes Hyperparathyroidism Anemia Benign essential HTN Shortness of breath Primary hyperparathyroidism Obesity Type 2 diabetes mellitus Chief Complaint 3 M FU High Calcium, Diabetes Acute INT LABS 3 m fu EORDER SOB 3 M FU EORDER 3 M FU E ORDER Reason for Visit Dark stools Health care maintenance Benign essential HTN Hyperparathyroidism Type 2 diabetes mellitus Diabetes Hyperparathyroidism Anemia Benign essential HTN Shortness of breath Primary hyperparathyroidism Obesity Type 2 diabetes mellitus Primary hyperparathyroidism Renal insufficiency Atherosclerosis of coronary artery of [place] without angina pectoris Benign essential HTN Hyperlipidemia Chief Complaint Acute INT LABS 3 m fu EORDER SOB 3 M FU EORDER 3 M FU E ORDER EORDER Reason for Visit Anemia Benign essential HTN Shortness of breath Primary hyperparathyroidism Obesity Type 2 diabetes mellitus Primary hyperparathyroidism Renal insufficiency Atherosclerosis of coronary artery of [place] without angina pectoris Benign essential HTN Hyperlipidemia Chief Complaint EORDER 3 m fu 3 M FU DISCUSS SURGERY DEBILITY Reason for Visit Vertigo Anxiety and depression Benign essential HTN Hyperparathyroidism Benign essential HTN Hyperparathyroidism Obesity Type 2 diabetes mellitus Vitamin D deficiency Dizziness Primary hyperparathyroidism Vitamin D deficiency Debility Renal insufficiency Benign essential HTN Type 2 diabetes mellitus Chief Complaint EORDER 3 m fu 3 M FU DISCUSS SURGERY RIGHT ELBOW AND RIGHT SHOULDER PAIN RIGHT ELBOW AND RIGHT SHOULDER PAIN RIGHT ELBOW AND RIGHT SHOULDER PAIN Reason for Visit Vertigo Anxiety and depression Benign essential HTN Hyperparathyroidism Benign essential HTN Hyperparathyroidism Obesity Type 2 diabetes mellitus Vitamin D deficiency Dizziness Primary hyperparathyroidism Vitamin D deficiency Debility Olecranon bursitis Renal insufficiency Right elbow pain Benign essential HTN Type 2 diabetes mellitus Chief Complaint EORDER 3 m fu 3 M FU DISCUSS SURGERY RIGHT ELBOW AND RIGHT SHOULDER PAIN RIGHT ELBOW AND RIGHT SHOULDER PAIN RIGHT ELBOW AND RIGHT SHOULDER PAIN PAF, CHF EXAC Reason for Visit Vertigo Anxiety and depression Benign essential HTN Hyperparathyroidism Benign essential HTN Hyperparathyroidism Obesity Type 2 diabetes mellitus Vitamin D deficiency Dizziness Primary hyperparathyroidism Vitamin D deficiency Debility Olecranon bursitis Renal insufficiency Right elbow pain Benign essential HTN Type 2 diabetes mellitus Atrial fibrillation Chest pain Chief Complaint EORDER 3 m fu 3 M FU DISCUSS SURGERY RIGHT ELBOW AND RIGHT SHOULDER PAIN RIGHT ELBOW AND RIGHT SHOULDER PAIN RIGHT ELBOW AND RIGHT SHOULDER PAIN PAF, chest pain PAF, CHF EXAC PAF, CHF EXAC PAF, CHF EXAC PAF, CHF EXAC PAF, CHF EXAC PAF, CHF EXAC PAF, CHF EXAC PAF, CHF EXAC PAF, CHF EXAC Reason for Visit Vertigo Anxiety and depression Benign essential HTN Hyperparathyroidism Benign essential HTN Hyperparathyroidism Obesity Type 2 diabetes mellitus Vitamin D deficiency Dizziness Primary hyperparathyroidism Vitamin D deficiency Debility Renal insufficiency Benign essential HTN Type 2 diabetes mellitus Right elbow pain Atrial fibrillation Chest pain Atherosclerosis of coronary artery of [place] without angina pectoris Chest discomfort Diabetes Hypercalcemia Hypertriglyceridemia History of coronary artery stent placement Chief Complaint LAB WORK LABWORK COPD Reason for Visit Acute kidney injury Hypoxia Congestive heart failure Chief Complaint LABWORK ACUTE ON CHRONIC HEART FAILURE WITH PRESERVED EF ACUTE ON CHRONIC HEART FAILURE WITH PRESERVED EF ACUTE ON CHRONIC HEART FAILURE WITH PRESERVED EF ACUTE ON CHRONIC HEART FAILURE WITH PRESERVED EF ACUTE ON CHRONIC HEART FAILURE WITH PRESERVED EF ACUTE ON CHRONIC HEART FAILURE WITH PRESERVED EF ACUTE ON CHRONIC HEART FAILURE WITH PRESERVED EF ACUTE ON CHRONIC HEART FAILURE WITH PRESERVED EF ACUTE ON CHRONIC HEART FAILURE WITH PRESERVED EF ACUTE ON CHRONIC HEART FAILURE WITH PRESERVED EF Reason for Visit Acute kidney injury Diabetes Gastric ulcer GI bleed Heart failure with preserved ejection fraction Hypoxia Lightheadedness Acute on chronic anemia Congestive heart failure Shortness of breath Chief Complaint ACUTE ON CHRONIC HEA RT FAILURE WITH PRESERVED EF ACUTE ON CHRONIC HEART FAILURE WITH PRESERVED EF ACUTE ON CHRONIC HEART FAILURE WITH PRESERVED EF ACUTE ON CHRONIC HEART FAILURE WITH PRESERVED EF AM EKG ACUTE ON CHRONIC HEART FAILURE WITH PRESERVED EF ACUTE ON CHRONIC HEART FAILURE WITH PRESERVED EF ACUTE ON CHRONIC HEART FAILURE WITH PRESERVED EF ACUTE ON CHRONIC HEART FAILURE WITH PRESERVED EF ACUTE ON CHRONIC HEART FAILURE WITH PRESERVED EF ACUTE ON CHRONIC HEART FAILURE WITH PRESERVED EF 5 M FU, NS 12/20 UPPER GI BLEED WITH ACUTE BLOOD LOSS ANEMIA Reason for Visit Acute kidney injury Acute on chronic anemia Congestive heart failure Hypoxia Lightheadedness Shortness of breath Benign essential HTN Primary hyperparathyroidism Stage 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 disease (CKD) Abdominal pain Acute GI bleeding Acute kidney injury Complaint of melena Hypokalemia longterm current use of antithrombotics/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 Acute on chronic anemia Chief Complaint ACUTE ON CHRONIC HEA RT FAILURE WITH PRESERVED EF ACUTE ON CHRONIC HEART FAILURE WITH PRESERVED EF ACUTE ON CHRONIC HEART FAILURE WITH PRESERVED EF ACUTE ON CHRONIC HEART FAILURE WITH PRESERVED EF AM EKG ACUTE ON CHRONIC HEART FAILURE WITH PRESERVED EF ACUTE ON CHRONIC HEART FAILURE WITH PRESERVED EF ACUTE ON CHRONIC HEART FAILURE WITH PRESERVED EF ACUTE ON CHRONIC HEART FAILURE WITH PRESERVED EF ACUTE ON CHRONIC HEART FAILURE WITH PRESERVED EF ACUTE ON CHRONIC HEART FAILURE WITH PRESERVED EF 5 M FU, NS 12/20 UPPER GI BLEED WITH ACUTE BLOOD LOSS ANEMIA UPPER GI BLEED WITH ACUTE BLOOD LOSS ANEMIA PREOP UPPER GI BLEED WITH ACUTE BLOOD LOSS ANEMIA UPPER GI BLEED WITH ACUTE BLOOD LOSS ANEMIA UPPER GI BLEED WITH ACUTE BLOOD LOSS ANEMIA UPPER GI BLEED WITH ACUTE BLOOD LOSS ANEMIA UPPER GI BLEED WITH ACUTE BLOOD LOSS ANEMIA UPPER GI BLEED WITH ACUTE BLOOD LOSS ANEMIA ACUTE - [facility] FU H FU Reason for Visit Acute on chronic ane bart Acute kidney injury Congestive heart failure GI bleed Hypoxia Lightheadedness Shortness of breath Benign essential HTN Primary hyperparathyroidism Stage 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 disease (CKD) 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 Acute on chronic anemia Abdominal pain Acute GI bleeding Acute kidney injury Complaint of melena GI bleed Hypokalemia Lower extremity edema Benign essential HTN Stage 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 disease (CKD) Type 2 diabetes mellitus GI bleed GI bleed Chief Complaint ACUTE ON CHRONIC HEA RT FAILURE WITH PRESERVED EF ACUTE ON CHRONIC HEART FAILURE WITH PRESERVED EF ACUTE ON CHRONIC HEART FAILURE WITH PRESERVED EF ACUTE ON CHRONIC HEART FAILURE WITH PRESERVED EF AM EKG ACUTE ON CHRONIC HEART FAILURE WITH PRESERVED EF ACUTE ON CHRONIC HEART FAILURE WITH PRESERVED EF ACUTE ON CHRONIC HEART FAILURE WITH PRESERVED EF ACUTE ON CHRONIC HEART FAILURE WITH PRESERVED EF ACUTE ON CHRONIC HEART FAILURE WITH PRESERVED EF ACUTE ON CHRONIC HEART FAILURE WITH PRESERVED EF 5 M FU, NS 12/20 UPPER GI BLEED WITH ACUTE BLOOD LOSS ANEMIA UPPER GI BLEED WITH ACUTE BLOOD LOSS ANEMIA PREOP UPPER GI BLEED WITH ACUTE BLOOD LOSS ANEMIA UPPER GI BLEED WITH ACUTE BLOOD LOSS ANEMIA UPPER GI BLEED WITH ACUTE BLOOD LOSS ANEMIA UPPER GI BLEED WITH ACUTE BLOOD LOSS ANEMIA UPPER GI BLEED WITH ACUTE BLOOD LOSS ANEMIA UPPER GI BLEED WITH ACUTE BLOOD LOSS ANEMIA ACUTE - [facility] FU H FU chest pain Reason for Visit Acute on chronic ane bart Acute kidney injury Congestive heart failure GI bleed Hypoxia Lightheadedness Shortness of breath Benign essential HTN Primary hyperparathyroidism Stage 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 disease (CKD) longterm current use of antithrombotics/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 Acute on chronic anemia Abdominal pain Acute GI bleeding Acute kidney injury Complaint of melena GI bleed Hypokalemia Lower extremity edema Benign essential HTN Stage 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 disease (CKD) Type 2 diabetes mellitus GI bleed GI bleed Chief Complaint ACUTE ON CHRONIC HEA RT FAILURE WITH PRESERVED EF ACUTE ON CHRONIC HEART FAILURE WITH PRESERVED EF ACUTE ON CHRONIC HEART FAILURE WITH PRESERVED EF ACUTE ON CHRONIC HEART FAILURE WITH PRESERVED EF AM EKG ACUTE ON CHRONIC HEART FAILURE WITH PRESERVED EF ACUTE ON CHRONIC HEART FAILURE WITH PRESERVED EF ACUTE ON CHRONIC HEART FAILURE WITH PRESERVED EF ACUTE ON CHRONIC HEART FAILURE WITH PRESERVED EF ACUTE ON CHRONIC HEART FAILURE WITH PRESERVED EF ACUTE ON CHRONIC HEART FAILURE WITH PRESERVED EF 5 M FU, NS 12/20 UPPER GI BLEED WITH ACUTE BLOOD LOSS ANEMIA UPPER GI BLEED WITH ACUTE BLOOD LOSS ANEMIA PREOP UPPER GI BLEED WITH ACUTE BLOOD LOSS ANEMIA UPPER GI BLEED WITH ACUTE BLOOD LOSS ANEMIA UPPER GI BLEED WITH ACUTE BLOOD LOSS ANEMIA UPPER GI BLEED WITH ACUTE BLOOD LOSS ANEMIA UPPER GI BLEED WITH ACUTE BLOOD LOSS ANEMIA UPPER GI BLEED WITH ACUTE BLOOD LOSS ANEMIA ACUTE - [facility] FU H FU chest pain DIZZY, FALL, INTERMITTENT CP Reason for Visit Acute on chronic ane bart Acute kidney injury Congestive heart failure GI bleed Hypoxia Lightheadedness Shortness of breath Benign essential HTN Primary hyperparathyroidism Stage 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 disease (CKD) 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 Acute on chronic anemia Abdominal pain Acute GI bleeding Acute kidney injury Complaint of melena GI bleed Hypokalemia Lower extremity edema Benign essential HTN Stage 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 disease (CKD) Type 2 diabetes mellitus GI bleed GI bleed Dizziness Fall Intermittent chest pain Chief Complaint ACUTE ON CHRONIC HEA RT FAILURE WITH PRESERVED EF ACUTE ON CHRONIC HEART FAILURE WITH PRESERVED EF ACUTE ON CHRONIC HEART FAILURE WITH PRESERVED EF ACUTE ON CHRONIC HEART FAILURE WITH PRESERVED EF AM EKG ACUTE ON CHRONIC HEART FAILURE WITH PRESERVED EF ACUTE ON CHRONIC HEART FAILURE WITH PRESERVED EF ACUTE ON CHRONIC HEART FAILURE WITH PRESERVED EF ACUTE ON CHRONIC HEART FAILURE WITH PRESERVED EF ACUTE ON CHRONIC HEART FAILURE WITH PRESERVED EF ACUTE ON CHRONIC HEART FAILURE WITH PRESERVED EF 5 M FU, NS /12 UPPER GI BLEED WITH ACUTE BLOOD LOSS ANEMIA UPPER GI BLEED WITH ACUTE BLOOD LOSS ANEMIA PREOP UPPER GI BLEED WITH ACUTE BLOOD LOSS ANEMIA UPPER GI BLEED WITH ACUTE BLOOD LOSS ANEMIA UPPER GI BLEED WITH ACUTE BLOOD LOSS ANEMIA UPPER GI BLEED WITH ACUTE BLOOD LOSS ANEMIA UPPER GI BLEED WITH ACUTE BLOOD LOSS ANEMIA UPPER GI BLEED WITH ACUTE BLOOD LOSS ANEMIA ACUTE - [facility] FU H FU chest pain VERTIGO WITH FALLS VERTIGO WITH FALLS VERTIGO WITH FALLS VERTIGO WITH FALLS Reason for Visit Acute on chronic ane bart Acute kidney injury Congestive heart failure GI bleed Hypoxia Lightheadedness Shortness of breath Benign essential HTN Primary hyperparathyroidism Stage 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 disease (CKD) longterm current use of antithrombotics/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 Acute on chronic anemia Abdominal pain Acute GI bleeding Acute kidney injury Complaint of melena GI bleed Hypokalemia Lower extremity edema Benign essential HTN Stage 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 disease (CKD) Type 2 diabetes mellitus GI bleed GI bleed Ambulatory dysfunction Chest pain Dizziness Fall Generalized weakness Intermittent chest pain Vertigo Chief Complaint ACUTE ON CHRONIC HEA RT FAILURE WITH PRESERVED EF ACUTE ON CHRONIC HEART FAILURE WITH PRESERVED EF ACUTE ON CHRONIC HEART FAILURE WITH PRESERVED EF ACUTE ON CHRONIC HEART FAILURE WITH PRESERVED EF AM EKG ACUTE ON CHRONIC HEART FAILURE WITH PRESERVED EF ACUTE ON CHRONIC HEART FAILURE WITH PRESERVED EF ACUTE ON CHRONIC HEART FAILURE WITH PRESERVED EF ACUTE ON CHRONIC HEART FAILURE WITH PRESERVED EF ACUTE ON CHRONIC HEART FAILURE WITH PRESERVED EF ACUTE ON CHRONIC HEART FAILURE WITH PRESERVED EF 5 M FU, NS 12/20 UPPER GI BLEED WITH ACUTE BLOOD LOSS ANEMIA UPPER GI BLEED WITH ACUTE BLOOD LOSS ANEMIA PREOP UPPER GI BLEED WITH ACUTE BLOOD LOSS ANEMIA UPPER GI BLEED WITH ACUTE BLOOD LOSS ANEMIA UPPER GI BLEED WITH ACUTE BLOOD LOSS ANEMIA UPPER GI BLEED WITH ACUTE BLOOD LOSS ANEMIA UPPER GI BLEED WITH ACUTE BLOOD LOSS ANEMIA UPPER GI BLEED WITH ACUTE BLOOD LOSS ANEMIA ACUTE - NH FU H FU chest pain VERTIGO WITH FALLS VERTIGO WITH FALLS VERTIGO WITH FALLS VERTIGO WITH FALLS Reason for Visit Acute on chronic ane bart Acute kidney injury Congestive heart failure GI bleed Hypoxia Lightheadedness Shortness of breath Benign essential HTN Primary hyperparathyroidism Stage 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 disease (CKD) 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 Acute on chronic anemia Abdominal pain Acute GI bleeding Acute kidney injury Complaint of melena GI bleed Hypokalemia Lower extremity edema Benign essential HTN Stage 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 disease (CKD) Type 2 diabetes mellitus GI bleed GI bleed Ambulatory dysfunction Generalized weakness Vertigo Dizziness Chief Complaint ACUTE ON CHRONIC HEA RT FAILURE WITH PRESERVED EF ACUTE ON CHRONIC HEART FAILURE WITH PRESERVED EF ACUTE ON CHRONIC HEART FAILURE WITH PRESERVED EF ACUTE ON CHRONIC HEART FAILURE WITH PRESERVED EF AM EKG ACUTE ON CHRONIC HEART FAILURE WITH PRESERVED EF ACUTE ON CHRONIC HEART FAILURE WITH PRESERVED EF ACUTE ON CHRONIC HEART FAILURE WITH PRESERVED EF ACUTE ON CHRONIC HEART FAILURE WITH PRESERVED EF ACUTE ON CHRONIC HEART FAILURE WITH PRESERVED EF ACUTE ON CHRONIC HEART FAILURE WITH PRESERVED EF 5 M FU, NS 12/20 UPPER GI BLEED WITH ACUTE BLOOD LOSS ANEMIA UPPER GI BLEED WITH ACUTE BLOOD LOSS ANEMIA PREOP UPPER GI BLEED WITH ACUTE BLOOD LOSS ANEMIA UPPER GI BLEED WITH ACUTE BLOOD LOSS ANEMIA UPPER GI BLEED WITH ACUTE BLOOD LOSS ANEMIA UPPER GI BLEED WITH ACUTE BLOOD LOSS ANEMIA UPPER GI BLEED WITH ACUTE BLOOD LOSS ANEMIA UPPER GI BLEED WITH ACUTE BLOOD LOSS ANEMIA ACUTE - [facility] FU H FU chest pain VERTIGO WITH FALLS VERTIGO WITH FALLS VERTIGO WITH FALLS VERTIGO WITH FALLS ARRHYTHMIA 30 DAY MONITOR 1 Y FU follow up ACUTE - HIGH BP RIGHT KNEE PAIN R KNEE PAIN/ INABILITY TO WALK Reason for Visit Acute on chronic ane bart Acute kidney injury Congestive heart failure GI bleed Hypoxia Lightheadedness Shortness of breath Benign essential HTN Primary hyperparathyroidism Stage 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 disease (CKD) longterm current use of antithrombotics/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 Acute on chronic anemia Abdominal pain Acute GI bleeding Acute kidney injury Complaint of melena GI bleed Hypokalemia Lower extremity edema Benign essential HTN Stage 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 disease (CKD) Type 2 diabetes mellitus GI bleed GI bleed Ambulatory dysfunction Generalized weakness Vertigo Dizziness Atrial fibrillation Renal insufficiency Atherosclerosis of coronary artery of [place] without angina pectoris Benign essential HTN Hyperlipidemia Primary hyperparathyroidism FAVIAN (obstructive sleep apnea) Secondary pulmonary hypertension Morbid obesity with BMI of 40.0-44.9, adult Renal insufficiency Atrial fibrillation Chest pain, unspecified Generalized weakness Hypokalemia Inability to ambulate due to knee Right knee sprain Chief Complaint ACUTE ON CHRONIC HEA RT FAILURE WITH PRESERVED EF ACUTE ON CHRONIC HEART FAILURE WITH PRESERVED EF ACUTE ON CHRONIC HEART FAILURE WITH PRESERVED EF ACUTE ON CHRONIC HEART FAILURE WITH PRESERVED EF AM EKG ACUTE ON CHRONIC HEART FAILURE WITH PRESERVED EF ACUTE ON CHRONIC HEART FAILURE WITH PRESERVED EF ACUTE ON CHRONIC HEART FAILURE WITH PRESERVED EF ACUTE ON CHRONIC HEART FAILURE WITH PRESERVED EF ACUTE ON CHRONIC HEART FAILURE WITH PRESERVED EF ACUTE ON CHRONIC HEART FAILURE WITH PRESERVED EF 5 M FU, NS 12/20 UPPER GI BLEED WITH ACUTE BLOOD LOSS ANEMIA UPPER GI BLEED WITH ACUTE BLOOD LOSS ANEMIA PREOP UPPER GI BLEED WITH ACUTE BLOOD LOSS ANEMIA UPPER GI BLEED WITH ACUTE BLOOD LOSS ANEMIA UPPER GI BLEED WITH ACUTE BLOOD LOSS ANEMIA UPPER GI BLEED WITH ACUTE BLOOD LOSS ANEMIA UPPER GI BLEED WITH ACUTE BLOOD LOSS ANEMIA UPPER GI BLEED WITH ACUTE BLOOD LOSS ANEMIA ACUTE - [facility] FU H FU chest pain VERTIGO WITH FALLS VERTIGO WITH FALLS VERTIGO WITH FALLS VERTIGO WITH FALLS ARRHYTHMIA 30 DAY MONITOR 1 Y FU follow up ACUTE - HIGH BP RIGHT KNEE PAIN Reason for Visit Acute on chronic ane bart Acute kidney injury Congestive heart failure GI bleed Hypoxia Lightheadedness Shortness of breath Benign essential HTN Primary hyperparathyroidism Stage 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 disease (CKD) longterm current use of antithrombotics/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 Acute on chronic anemia Abdominal pain Acute GI bleeding Acute kidney injury Complaint of melena GI bleed Hypokalemia Lower extremity edema Benign essential HTN Stage 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 disease (CKD) Type 2 diabetes mellitus GI bleed GI bleed Ambulatory dysfunction Generalized weakness Vertigo Dizziness Atrial fibrillation Renal insufficiency Atherosclerosis of coronary artery of [place] without angina pectoris Benign essential HTN Hyperlipidemia Primary hyperparathyroidism FAVIAN (obstructive sleep apnea) Secondary pulmonary hypertension Morbid obesity with BMI of 40.0-44.9, adult Renal insufficiency Chief Complaint ACUTE ON CHRONIC HEA RT FAILURE WITH PRESERVED EF ACUTE ON CHRONIC HEART FAILURE WITH PRESERVED EF ACUTE ON CHRONIC HEART FAILURE WITH PRESERVED EF ACUTE ON CHRONIC HEART FAILURE WITH PRESERVED EF AM EKG ACUTE ON CHRONIC HEART FAILURE WITH PRESERVED EF ACUTE ON CHRONIC HEART FAILURE WITH PRESERVED EF ACUTE ON CHRONIC HEART FAILURE WITH PRESERVED EF ACUTE ON CHRONIC HEART FAILURE WITH PRESERVED EF ACUTE ON CHRONIC HEART FAILURE WITH PRESERVED EF ACUTE ON CHRONIC HEART FAILURE WITH PRESERVED EF 5 M FU, NS 12/20 UPPER GI BLEED WITH ACUTE BLOOD LOSS ANEMIA UPPER GI BLEED WITH ACUTE BLOOD LOSS ANEMIA PREOP UPPER GI BLEED WITH ACUTE BLOOD LOSS ANEMIA UPPER GI BLEED WITH ACUTE BLOOD LOSS ANEMIA UPPER GI BLEED WITH ACUTE BLOOD LOSS ANEMIA UPPER GI BLEED WITH ACUTE BLOOD LOSS ANEMIA UPPER GI BLEED WITH ACUTE BLOOD LOSS ANEMIA UPPER GI BLEED WITH ACUTE BLOOD LOSS ANEMIA ACUTE - [facility] FU H FU chest pain VERTIGO WITH FALLS VERTIGO WITH FALLS VERTIGO WITH FALLS VERTIGO WITH FALLS ARRHYTHMIA 30 DAY MONITOR 1 Y FU follow up ACUTE - HIGH BP RIGHT KNEE PAIN R KNEE PAIN/ INABILITY TO WALK R KNEE PAIN/ INABILITY TO WALK BIPAP REPAP Reason for Visit Acute on chronic ane bart Acute kidney injury Congestive heart failure GI bleed Hypoxia Lightheadedness Shortness of breath Benign essential HTN Primary hyperparathyroidism Stage 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 disease (CKD) 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 Acute on chronic anemia Abdominal pain Acute GI bleeding Acute kidney injury Complaint of melena GI bleed Hypokalemia Lower extremity edema Benign essential HTN Stage 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 disease (CKD) Type 2 diabetes mellitus GI bleed GI bleed Ambulatory dysfunction Generalized weakness Vertigo Dizziness Atrial fibrillation Renal insufficiency Atherosclerosis of coronary artery of [place] without angina pectoris Benign essential HTN Hyperlipidemia Primary hyperparathyroidism FAVIAN (obstructive sleep apnea) Secondary pulmonary hypertension Morbid obesity with BMI of 40.0-44.9, adult Renal insufficiency Atrial fibrillation Chest pain, unspecified Generalized weakness Hypokalemia Inability to ambulate due to knee Right knee sprain Chief Complaint ACUTE ON CHRONIC HEA RT FAILURE WITH PRESERVED EF ACUTE ON CHRONIC HEART FAILURE WITH PRESERVED EF ACUTE ON CHRONIC HEART FAILURE WITH PRESERVED EF ACUTE ON CHRONIC HEART FAILURE WITH PRESERVED EF AM EKG ACUTE ON CHRONIC HEART FAILURE WITH PRESERVED EF ACUTE ON CHRONIC HEART FAILURE WITH PRESERVED EF ACUTE ON CHRONIC HEART FAILURE WITH PRESERVED EF ACUTE ON CHRONIC HEART FAILURE WITH PRESERVED EF ACUTE ON CHRONIC HEART FAILURE WITH PRESERVED EF ACUTE ON CHRONIC HEART FAILURE WITH PRESERVED EF 5 M FU, NS 12/20 UPPER GI BLEED WITH ACUTE BLOOD LOSS ANEMIA UPPER GI BLEED WITH ACUTE BLOOD LOSS ANEMIA PREOP UPPER GI BLEED WITH ACUTE BLOOD LOSS ANEMIA UPPER GI BLEED WITH ACUTE BLOOD LOSS ANEMIA UPPER GI BLEED WITH ACUTE BLOOD LOSS ANEMIA UPPER GI BLEED WITH ACUTE BLOOD LOSS ANEMIA UPPER GI BLEED WITH ACUTE BLOOD LOSS ANEMIA UPPER GI BLEED WITH ACUTE BLOOD LOSS ANEMIA ACUTE - [facility] FU H FU chest pain VERTIGO WITH FALLS VERTIGO WITH FALLS VERTIGO WITH FALLS VERTIGO WITH FALLS ARRHYTHMIA 30 DAY MONITOR 1 Y FU follow up ACUTE - HIGH BP RIGHT KNEE PAIN R KNEE PAIN/ INABILITY TO WALK R KNEE PAIN/ INABILITY TO WALK BIPAP REPAP 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 Reason for Visit Acute on chronic ane bart Acute kidney injury Congestive heart failure GI bleed Hypoxia Lightheadedness Shortness of breath Benign essential HTN Primary hyperparathyroidism Stage 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 disease (CKD) 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 Acute on chronic anemia Abdominal pain Acute GI bleeding Acute kidney injury Complaint of melena GI bleed Hypokalemia Lower extremity edema Benign essential HTN Stage 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 disease (CKD) Type 2 diabetes mellitus GI bleed GI bleed Ambulatory dysfunction Generalized weakness Vertigo Dizziness Atrial fibrillation Renal insufficiency Atherosclerosis of coronary artery of [place] without angina pectoris Benign essential HTN Hyperlipidemia Primary hyperparathyroidism FAVIAN (obstructive sleep apnea) Secondary pulmonary hypertension Morbid obesity with BMI of 40.0-44.9, adult Renal insufficiency Atrial fibrillation Chest pain, unspecified Generalized weakness Hypokalemia Inability to ambulate due to knee Right knee sprain Sick sinus syndrome Chief Complaint ACUTE ON CHRONIC HEA RT FAILURE WITH PRESERVED EF ACUTE ON CHRONIC HEART FAILURE WITH PRESERVED EF ACUTE ON CHRONIC HEART FAILURE WITH PRESERVED EF ACUTE ON CHRONIC HEART FAILURE WITH PRESERVED EF AM EKG ACUTE ON CHRONIC HEART FAILURE WITH PRESERVED EF ACUTE ON CHRONIC HEART FAILURE WITH PRESERVED EF ACUTE ON CHRONIC HEART FAILURE WITH PRESERVED EF ACUTE ON CHRONIC HEART FAILURE WITH PRESERVED EF ACUTE ON CHRONIC HEART FAILURE WITH PRESERVED EF ACUTE ON CHRONIC HEART FAILURE WITH PRESERVED EF 5 M FU, NS 12/20 UPPER GI BLEED WITH ACUTE BLOOD LOSS ANEMIA UPPER GI BLEED WITH ACUTE BLOOD LOSS ANEMIA PREOP UPPER GI BLEED WITH ACUTE BLOOD LOSS ANEMIA UPPER GI BLEED WITH ACUTE BLOOD LOSS ANEMIA UPPER GI BLEED WITH ACUTE BLOOD LOSS ANEMIA UPPER GI BLEED WITH ACUTE BLOOD LOSS ANEMIA UPPER GI BLEED WITH ACUTE BLOOD LOSS ANEMIA UPPER GI BLEED WITH ACUTE BLOOD LOSS ANEMIA ACUTE - NH FU H FU chest pain VERTIGO WITH FALLS VERTIGO WITH FALLS VERTIGO WITH FALLS VERTIGO WITH FALLS ARRHYTHMIA 30 DAY MONITOR 1 Y FU follow up ACUTE - HIGH BP RIGHT KNEE PAIN R KNEE PAIN/ INABILITY TO WALK R KNEE PAIN/ INABILITY TO WALK BIPAP REPAP 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 HTN, ASHD, A-FIB HTN, ASHD, A-FIB HTN, ASHD, A-FIB INPATIENT 1st day s/p PPM implant check Reason for Visit Acute on chronic ane bart Acute kidney injury Congestive heart failure GI bleed Hypoxia Lightheadedness Shortness of breath Benign essential HTN Primary hyperparathyroidism Stage 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 disease (CKD) longterm current use of antithrombotics/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 Acute on chronic anemia Abdominal pain Acute GI bleeding Acute kidney injury Complaint of melena GI bleed Hypokalemia Lower extremity edema Benign essential HTN Stage 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 disease (CKD) Type 2 diabetes mellitus GI bleed GI bleed Ambulatory dysfunction Generalized weakness Vertigo Dizziness Renal insufficiency Atherosclerosis of coronary artery of [place] heart without angina pectoris Benign essential HTN Hyperlipidemia Primary hyperparathyroidism FAVIAN (obstructive sleep apnea) Secondary pulmonary hypertension Morbid obesity with BMI of 40.0-44.9, adult Renal insufficiency Generalized weakness Chest pain, unspecified Hypokalemia Inability to ambulate due to knee Right knee sprain Sick sinus syndrome Essential hypertension Sick sinus syndrome Atherosclerosis of coronary artery of [place] heart without angina pectoris Pure hypercholesterolemia Type 2 diabetes mellitus Presence of permanent cardiac pacemaker Sick sinus syndrome Chief Complaint UPPER GI BLEED WITH ACUTE BLOOD LOSS ANEMIA UPPER GI BLEED WITH ACUTE BLOOD LOSS ANEMIA UPPER GI BLEED WITH ACUTE BLOOD LOSS ANEMIA UPPER GI BLEED WITH ACUTE BLOOD LOSS ANEMIA UPPER GI BLEED WITH ACUTE BLOOD LOSS ANEMIA UPPER GI BLEED WITH ACUTE BLOOD LOSS ANEMIA UPPER GI BLEED WITH ACUTE BLOOD LOSS ANEMIA ACUTE - NH FU H FU chest pain VERTIGO WITH FALLS VERTIGO WITH FALLS VERTIGO WITH FALLS VERTIGO WITH FALLS ARRHYTHMIA 30 DAY MONITOR 1 Y FU follow up ACUTE - HIGH BP RIGHT KNEE PAIN R KNEE PAIN/ INABILITY TO WALK R KNEE PAIN/ INABILITY TO WALK BIPAP REPAP 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 SSS/AFIB HTN, ASHD, A-FIB HTN, ASHD, A-FIB Pacer Check Remote INPATIENT 1st day s/p PPM implant check Pacer Check Remote 1 wk s/p PPM implant wond check S/P [facility] 06/18 NEW PPM Reason for Visit 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 current us e of antithrombotics/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 Acute on chronic anemia Abdominal pain Acute GI bleeding Acute kidney injury Complaint of melena GI bleed Hypokalemia Lower extremity edema Benign essential HTN Stage 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 disease (CKD) Type 2 diabetes mellitus GI bleed GI bleed Ambulatory dysfunction Generalized weakness Vertigo Dizziness Renal insufficiency Atherosclerosis of coronary artery of [place] heart without angina pectoris Benign essential HTN Hyperlipidemia Primary hyperparathyroidism FAVIAN (obstructive sleep apnea) Secondary pulmonary hypertension Morbid obesity with BMI of 40.0-44.9, adult Renal insufficiency Generalized weakness Chest pain, unspecified Hypokalemia Inability to ambulate due to knee Right knee sprain Sick sinus syndrome Essential hypertension Atherosclerosis of coronary artery of [place] heart without angina pectoris Pure hypercholesterolemia Sick sinus syndrome Type 2 diabetes mellitus Presence of permanent cardiac pacemaker Sick sinus syndrome Presence of permanent cardiac pacemaker Sick sinus syndrome Edema Presence of permanent cardiac pacemaker Renal insufficiency Atherosclerosis of coronary artery of [place] heart without angina pectoris Benign essential HTN Hyperlipidemia Primary hyperparathyroidism Chief Complaint ACUTE - NH FU H FU chest pain VERTIGO WITH FALLS VERTIGO WITH FALLS VERTIGO WITH FALLS VERTIGO WITH FALLS ARRHYTHMIA 30 DAY MONITOR 1 Y FU follow up ACUTE - HIGH BP RIGHT KNEE PAIN R KNEE PAIN/ INABILITY TO WALK R KNEE PAIN/ INABILITY TO WALK BIPAP REPAP 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 SSS/AFIB HTN, ASHD, A-FIB HTN, ASHD, A-FIB Pacer Check Remote INPATIENT 1st day s/p PPM implant check Pacer Check Remote 1 wk s/p PPM implant wond check S/P [facility] 06/18 NEW PPM HIP Reason for Visit Lower extremity trae a Benign essential HTN Stage 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 disease (CKD) Type 2 diabetes mellitus GI bleed GI bleed Ambulatory dysfunction Generalized weakness Vertigo Dizziness Renal insufficiency Atherosclerosis of coronary artery of [place] heart without angina pectoris Benign essential HTN Hyperlipidemia Primary hyperparathyroidism FAVIAN (obstructive sleep apnea) Secondary pulmonary hypertension Morbid obesity with BMI of 40.0-44.9, adult Renal insufficiency Generalized weakness Chest pain, unspecified Hypokalemia Inability to ambulate due to knee Right knee sprain Sick sinus syndrome Essential hypertension Atherosclerosis of coronary artery of [place] heart without angina pectoris Pure hypercholesterolemia Sick sinus syndrome Type 2 diabetes mellitus Presence of permanent cardiac pacemaker Sick sinus syndrome Presence of permanent cardiac pacemaker Sick sinus syndrome Edema Presence of permanent cardiac pacemaker Renal insufficiency Atherosclerosis of coronary artery of [place] heart without angina pectoris Benign essential HTN Hyperlipidemia Primary hyperparathyroidism Chief Complaint ACUTE - NH FU H FU chest pain VERTIGO WITH FALLS VERTIGO WITH FALLS VERTIGO WITH FALLS VERTIGO WITH FALLS ARRHYTHMIA 30 DAY MONITOR 1 Y FU follow up ACUTE - HIGH BP RIGHT KNEE PAIN R KNEE PAIN/ INABILITY TO WALK R KNEE PAIN/ INABILITY TO WALK BIPAP REPAP 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 SSS/AFIB HTN, ASHD, A-FIB HTN, ASHD, A-FIB Pacer Check Remote INPATIENT 1st day s/p PPM implant check Pacer Check Remote 1 wk s/p PPM implant wond check S/P [facility] 06/18 NEW PPM Pacer Check Remote HIP Pacer Check Remote 6 WK FU NEW PPM CHF EXACERBATION Reason for Visit Lower extremity trae a Benign essential HTN Stage 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 disease (CKD) Type 2 diabetes mellitus GI bleed GI bleed Ambulatory dysfunction Generalized weakness Vertigo Dizziness Renal insufficiency Atherosclerosis of coronary artery of [place] heart without angina pectoris Benign essential HTN Hyperlipidemia Primary hyperparathyroidism FAVIAN (obstructive sleep apnea) Secondary pulmonary hypertension Morbid obesity with BMI of 40.0-44.9, adult Renal insufficiency Generalized weakness Chest pain, unspecified Hypokalemia Inability to ambulate due to knee Right knee sprain Sick sinus syndrome Essential hypertension Atherosclerosis of coronary artery of [place] heart without angina pectoris Pure hypercholesterolemia Sick sinus syndrome Type 2 diabetes mellitus Presence of permanent cardiac pacemaker Sick sinus syndrome Presence of permanent cardiac pacemaker Sick sinus syndrome Edema Presence of permanent cardiac pacemaker Renal insufficiency Atherosclerosis of coronary artery of [place] heart without angina pectoris Benign essential HTN Hyperlipidemia Primary hyperparathyroidism Presence of permanent cardiac pacemaker Sick sinus syndrome Acute hypoxemic respiratory failure CHF (congestive heart failure) Renal insufficiency Type 2 diabetes mellitus Chief Complaint ACUTE - NH FU H FU chest pain VERTIGO WITH FALLS VERTIGO WITH FALLS VERTIGO WITH FALLS VERTIGO WITH FALLS ARRHYTHMIA 30 DAY MONITOR 1 Y FU follow up ACUTE - HIGH BP RIGHT KNEE PAIN R KNEE PAIN/ INABILITY TO WALK R KNEE PAIN/ INABILITY TO WALK BIPAP REPAP 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 SSS/AFIB HTN, ASHD, A-FIB HTN, ASHD, A-FIB Pacer Check Remote INPATIENT 1st day s/p PPM implant check Pacer Check Remote 1 wk s/p PPM implant wond check S/P [facility] 06/18 NEW PPM Pacer Check Remote HIP Pacer Check Remote 6 WK FU NEW PPM CHF EXACERBATION CHF EXACERBATION CHF EXACERBATION CHF EXACERBATION CHF EXACERBATION Reason for Visit Lower extremity trae a Benign essential HTN Stage 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 disease (CKD) Type 2 diabetes mellitus GI bleed GI bleed Ambulatory dysfunction Generalized weakness Vertigo Dizziness Renal insufficiency Atherosclerosis of coronary artery of [place] heart without angina pectoris Benign essential HTN Hyperlipidemia Primary hyperparathyroidism FAVIAN (obstructive sleep apnea) Secondary pulmonary hypertension Morbid obesity with BMI of 40.0-44.9, adult Renal insufficiency Generalized weakness Chest pain, unspecified Hypokalemia Inability to ambulate due to knee Right knee sprain Sick sinus syndrome Essential hypertension Atherosclerosis of coronary artery of [place] heart without angina pectoris Pure hypercholesterolemia Sick sinus syndrome Type 2 diabetes mellitus Presence of permanent cardiac pacemaker Sick sinus syndrome Presence of permanent cardiac pacemaker Sick sinus syndrome Edema Presence of permanent cardiac pacemaker Renal insufficiency Atherosclerosis of coronary artery of [place] heart without angina pectoris Benign essential HTN Hyperlipidemia Primary hyperparathyroidism Presence of permanent cardiac pacemaker Sick sinus syndrome Acute hypoxemic respiratory failure CHF (congestive heart failure) Renal insufficiency Chronic pain of both knees Type 2 diabetes mellitus Chief Complaint ACUTE - NH FU H FU chest pain VERTIGO WITH FALLS VERTIGO WITH FALLS VERTIGO WITH FALLS VERTIGO WITH FALLS ARRHYTHMIA 30 DAY MONITOR 1 Y FU follow up ACUTE - HIGH BP RIGHT KNEE PAIN R KNEE PAIN/ INABILITY TO WALK R KNEE PAIN/ INABILITY TO WALK BIPAP REPAP 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 SSS/AFIB HTN, ASHD, A-FIB HTN, ASHD, A-FIB Pacer Check Remote INPATIENT 1st day s/p PPM implant check Pacer Check Remote 1 wk s/p PPM implant wond check S/P [facility] 06/18 NEW PPM Pacer Check Remote HIP Pacer Check Remote 6 WK FU NEW PPM CHF EXACERBATION CHF EXACERBATION CHF EXACERBATION CHF EXACERBATION CHF EXACERBATION 4 months swelling Reason for Visit Lower extremity trae a Benign essential HTN Type 2 diabetes mellitus GI bleed GI bleed Ambulatory dysfunction Generalized weakness Vertigo Dizziness Renal insufficiency Atherosclerosis of coronary artery of [place] heart without angina pectoris Benign essential HTN Hyperlipidemia Primary hyperparathyroidism FAVIAN (obstructive sleep apnea) Secondary pulmonary hypertension Morbid obesity with BMI of 40.0-44.9, adult Renal insufficiency Generalized weakness Chest pain, unspecified Hypokalemia Inability to ambulate due to knee Right knee sprain Sick sinus syndrome Essential hypertension Atherosclerosis of coronary artery of [place] heart without angina pectoris Pure hypercholesterolemia Sick sinus syndrome Type 2 diabetes mellitus Presence of permanent cardiac pacemaker Sick sinus syndrome Presence of permanent cardiac pacemaker Sick sinus syndrome Edema Presence of permanent cardiac pacemaker Renal insufficiency Atherosclerosis of coronary artery of [place] heart without angina pectoris Benign essential HTN Hyperlipidemia Primary hyperparathyroidism Presence of permanent cardiac pacemaker Sick sinus syndrome CHF (congestive heart failure) Renal insufficiency Chronic pain of both knees Type 2 diabetes mellitus Benign essential HTN Hyperparathyroidism Obesity Type 2 diabetes mellitus Chief Complaint Admit Date 3 M FU March 15, 2024 2 :08pm Pacer Check Remote March 18, 2024 4 :56am R60.9 - Edema, unspecified March 12:28pm R60.9 - Edema, unspecified April 16, 2024 1:28pm 4 M FU April 25, 2024 1 0:50am 4-6 W F/U May 03, 2024 1 :26pm 6 M FU June 14, 2024 1:47 pm Pacer Check Remote June 17, 2024 4:0 1am RUQ PAIN June 21, 2024 7:5 7am Reason for Visit Admit Date Abnormal chest xray March 15, 2024 2 :08pm Asthma March 15, 2024 2 :08pm Chronic hypoxemic respiratory failure De cember 2023 2:08pm FAVIAN (obstructive sleep apnea) March 152023 2:08pm Secondary pulmonary hypertension Decembe r 2023 2:08pm Benign essential HTN April 25, 2024 10:50am Obesity April 25, 2024 1 0:50am Primary hyperparathyroidism April 10:50am Renal insufficiency April 25, 2024 1 0:50am Type 2 diabetes mellitus April 25, 025 10:50am Asthma May 03, 2024 1 :26pm Chronic hypoxemic respiratory failure Ja nuary 2024 1:26pm FAVIAN (obstructive sleep apnea) May 032024 1:26pm Secondary pulmonary hypertension May 03, 2024 1:26pm Right upper quadrant abdominal pain [facility] 2024 1:47pm Chief Complaint Admit Date 6 M FU June 14, 2024 1:47 pm Pacer Check Remote June 17, 2024 4:0 1am RUQ PAIN June 21, 2024 7:5 7am GALLBLADDER July 22, 2024 9:2 7am 3 M F/U August 01, 2024 2:2 9pm ACUTE CHF EXAC August 09, 2024 4:23pm CP August 09, 2024 8:17pm ACUTE CHF EXAC August 10, 2024 11:47a m ACUTE CHF EXAC August 11, 2024 9:49am ACUTE CHF EXAC August 12, 2024 1:40pm O/D for 3 M FU August 15, 2024 8:35am Reason for Visit Admit Date Right upper quadrant abdominal pain Virgil h 2024 1:47pm Biliary sludge July 22, 2024 9:2 7am Right upper quadrant abdominal pain Apri l 2024 9:27am Anxiety and depression August 01, 2024 2:29pm Asthma August 01, 2024 2:2 9pm Chronic hypoxemic respiratory failure Ap ril 2024 2:29pm Irregular heart beat August 01, 2024 2: 29pm Lives in half-way August 01, 2024 2 :29pm Obesity August 01, 2024 2:2 9pm FAVIAN (obstructive sleep apnea) July 2:29pm Secondary pulmonary hypertension July 102024 2:29pm Acute exacerbation of CHF (congestive he art failure) August 09, 2024 4:23pm Cellulitis and abscess of left leg August 092024 4:23pm Edema August 15, 2024 8:35am Presence of permanent cardiac pacemaker August 15, 2024 8:35am Atherosclerosis of coronary artery of [place] heart without angina pectoris August 15, 2024 8:35am Benign essential HTN August 15, 2024 8:35a m Hyperlipidemia August 15, 2024 8:35am Primary hyperparathyroidism August 15 8:35am Renal insufficiency August 15, 2024 8:35am Atrial fibrillation August 15, 2024 8:35am Right upper quadrant abdominal pain September 04, 2024 10:49am Chief Complaint Admit Date 6 M FU June 14, 2024 1:47 pm Pacer Check Remote June 17, 2024 4:0 1am RUQ PAIN June 21, 2024 7:5 7am GALLBLADDER July 22, 2024 9:2 7am 3 M F/U August 01, 2024 2:2 9pm ACUTE CHF EXAC August 09, 2024 4:23pm CP August 09, 2024 8:17pm BILATERAL LEG SWELLING August 10, 2024 10: 07am ACUTE CHF EXAC August 10, 2024 11:47a m ACUTE CHF EXAC August 11, 2024 9:49am ACUTE CHF EXAC August 12, 2024 1:40pm O/D for 3 M FU August 15, 2024 8:35am Pacer Check Remote September 16, 2024 4:14a m Additional Source Comments (unrecognized sect ion and content) No Status Records FoundNo Status Records FoundNo Status Records FoundNo Status Records Found INFORMATION SOURCE (unrecogn ized section and content) DATE CREATED AUTHOR 01/31/2018 [facility] DATE CREATED AUTHOR AUTHOR'S ORGANIZ ATION 01/31/2018 [employer] DATE CREATED AUTHOR AUTHOR'S ORGANIZ ATION 09/20/2024 [facility] DATE CREATED AUTHOR AUTHOR'S ORGANIZ ATION 10/04/2024 [facility] Goals (unrecognized section and content) Goals may be documented in a n alternate sectionGoals may be documented in an alternate sectionGoals may be documented in an alternate sectionGoals may be documented in an alternate sectionGoals may be documented in an alternate sectionGoals may be documented in an alternate sectionGoals may be documented in an alternate sectionGoals may be documented in an alternate sectionGoals may be documented in an alternate sectionGoals may be documented in an alternate sectionGoals may be documented in an alternate sectionGoals may be documented in an alternate sectionGoals may be documented in an alternate sectionGoals may be documented in an alternate section Care Teams (unrecognized sec tion and content) Team Status: Active Member Role Status Dates Dr. Mery Raymond MD Family Provider Active Mery Raymond MD Primary Care Provider Active Team Status: Inactive Member Role Status Dates Mery Raymond MD Primary Care Provider, Referring Provider Active Dr. Mery Raymond MD Attending Provider Active Team Status: Inactive Member Role Status Dates Mery Raymond MD Primary Care Provider, Referring Provider Active Dr. Vishnu Urias MD Attending Provider Active Team Status: Inactive Member Role Status Dates Mery Raymond MD Primary Care Provider Active Ariana Juarez FARM OPERATOR, FARM OPERATOR-C Attending Provider, Referrin g Provider Active Team Status: Inactive Member Role Status Tom Raymond MD Primary Care Provider Active Dr. Mery Raymond MD Attending Provider, Referrin g Provider Active Team Status: Inactive Member Role Status Dates Mery Raymond MD Primary Care Provider Active Dr. Vishnu Urias MD Attending Provider, Referring Provi kris Active Team Status: Active Member Role Status Dates Mery Raymond MD Primary Care Provider Active Dr. Mery Raymond MD Attending Provider, Referrin g Provider Active Team Status: Active Member Role Status Dates Mery Raymond MD Primary Care Provider Active Dr. Chauncey Tariq DO Emergency Provider Active Team Status: Inactive Member Role Status Tom Raymond MD Primary Care Provider Active Dr. Chauncey Tariq DO Emergency Provider Active Team Status: Active Member Role Status Dates Mery Raymond MD Primary Care Provider Active Dr. Mery Raymond MD Attending Provider Active Team Status: Inactive Member Role Status Tom Raymond MD Primary Care Provider Active Dr. Chauncey Tariq DO Attending Provider, Emergency Provide r Active Team Status: Inactive Member Role Status Tom Raymond MD Primary Care Provider Active Dr. Mery Raymond MD Attending Provider Active Team Status: Inactive Member Role Status Tom Raymond MD Primary Care Provider, Referring Provider Active Stephanie Schultz PA, PA Attending Provider Active Team Status: Active Member Role Status Dates Dr. Mery Raymond MD Family Provider Active Dr. Mery Raymond MD Primary Care Provider Active Team Status: Inactive Member Role Status Tom GONSALES MD Primary Care Provider, Referr ing Provider Active Stephanie Schultz PA, PA Attending Provider Active Team Status: Inactive Member Role Status Tom GONSALES MD Primary Care Provider, Referr ing Provider Active Dr. Mery Raymond MD Attending Provider Active Team Status: Inactive Member Role Status Tom GONSALES MD Primary Care Provider, Referr ing Provider Active Dr. Vishnu Urias MD Attending Provider Active Team Status: Inactive Member Role Status Tom GONSALES MD Primary Care Provider Active Ariana Juarez FARM OPERATOR, FARM OPERATOR-C Attending Provider, Referrin g Provider Active Team Status: Inactive Member Role Status Tom GONSALES MD Primary Care Provider Active Dr. Vishnu Urias MD Attending Provider, Referring Provi kris Active Team Status: Inactive Member Role Status Tom GONSALES MD Primary Care Provider Active Dr. Mery Raymond MD Attending Provider, Referrin g Provider Active Team Status: Inactive Member Role Status Tom GONSALES MD Primary Care Provider Active Dr. Chauncey Tariq DO Attending Provider, Emergency Provide r Active Team Status: Inactive Member Role Status Tom GONSALES MD Primary Care Provider Active Dr. Mery Raymond MD Attending Provider Active Team Status: Inactive Member Role Status Dates Dr. Mery Raymond MD Primary Care Provider Active Dr. Vishnu Urias MD Attending Provider, Referring Provi kris Active Team Status: Inactive Member Role Status Dates Mery GONSALES MD Referring Provider Active Dr. Mery Raymond MD Primary Care Provider, Atten ding Provider Active Team Status: Inactive Member Role Status Dates Mery GONSALES MD Referring Provider Active Dr. Vishnu Urias MD Attending Provider Active Dr. Mery Raymond MD Primary Care Provider Active Team Status: Inactive Member Role Status Dates Dr. Mery Raymond MD Primary Care Provider, Refer ring Provider Active Dr. Adrian Villalta MD Attending Provider Active Team Status: Active Member Role Status Dates Dr. Mery Raymond MD Primary Care Provider Active Dr. Adrian Villalta MD Attending Provider, Referring P rovider Active Team Status: Active Member Role Status Dates Dr. Mery Raymond MD Primary Care Provider Active Dr. Marco Lara DO Emergency Provider Active Dr. Lyle Coleman MD Admit Provider, Attending Provider, Referring Provider Active Team Status: Active Member Role Status Dates Dr. Mery Raymond MD Primary Care Provider Active Dr. Marco Lara DO Emergency Provider Active Dr. Lyle Coleman MD Admit Provider, Attending Provider, Referring Provider, Other Provider Active Team Status: Active Member Role Status Dates Dr. Mery Raymond MD Primary Care Provider Active Dr. Marco Lara DO Emergency Provider Active Dr. Lyle Coleman MD Admit Provider, Referring Provider, Other Provider Active Dr. Kingsley Hollis MD Attending Provider, Other Provi kris Active Team Status: Inactive Member Role Status Dates Dr. Mery Raymond MD Primary Care Provider Active Dr. Marco Lara DO Emergency Provider Active Dr. Lyle Coleman MD Admit Provider, Referring Provider, Other Provider Active Dr. Kingsley Hollis MD Attending Provider Active Team Status: Inactive Member Role Status Dates Dr. Mery Raymond MD Primary Care Provider Active Dr. Adrian Villalta MD Attending Provider, Referring P rovider Active Team Status: Active Member Role Status Dates Dr. Mery Raymond MD Primary Care Provider Active Hank GONSALES Attending Provider Active Team Status: Active Member Role Status Dates Dr. Mery Raymond MD Primary Care Provider Active Dr. Jaja Boudreaux MD Emergency Provider Active Dr. Purvi Jensen MD Admit Provider, Attending Prov ider Active Team Status: Active Member Role Status Dates Dr. Mery Raymond MD Primary Care Provider Active Dr. Marco Lara DO Emergency Provider Active Dr. Lyle Coleman MD Admit Provider, Attending Provider, Other Provider Active Team Status: Active Member Role Status Dates Dr. Mery Raymond MD Primary Care Provider Active Dr. Marco Lara DO Emergency Provider Active Dr. Lyle Coleman MD Admit Provider, Other Provide r Active Dr. Kingsley Hollis MD Attending Provider, Other Provi kris Active Team Status: Active Member Role Status Dates Dr. Mery Raymond MD Primary Care Provider Active Dr. Jaja Boudreaux MD Emergency Provider Active Dr. Purvi Jensen MD Admit Provider, Other Provider Active Dr. Maeve Coreas MD Other Provider Active Dr. Ty Rocha MD Attending Provider Active Team Status: Active Member Role Status Dates Dr. Mery Raymond MD Primary Care Provider Active Dr. Jaja Boudreaux MD Emergency Provider Active Dr. Purvi Jensen MD Admit Provider, Other Provider Active Dr. Maeve Coreas MD Attending Provider, Other Provid er Active Dr. Ty Rocha MD Other Provider Active Team Status: Active Member Role Status Dates Dr. Mery Raymond MD Primary Care Provider Active Dr. Jaja Boudreaux MD Emergency Provider Active Dr. Purvi Jensen MD Admit Provider, Other Provider Active Dr. Maeve Coreas MD Other Provider Active Dr. Ty Rocha MD Attending Provider, Other Provid er Active Team Status: Active Member Role Status Dates Dr. Mery Raymond MD Primary Care Provider Active Dr. Jaja Boudreaux MD Emergency Provider Active Dr. Purvi Jensen MD Admit Provider, Other Provider Active Dr. Ty Rocha MD Attending Provider, Other Provid er Active Dr. Kassidy Velez MD Other Provider Active Dr. Maeve Coreas MD Other Provider Active Team Status: Active Member Role Status Dates Dr. Mery Raymond MD Primary Care Provider Active Dr. Jaja Boudreaux MD Emergency Provider Active Dr. Purvi Jensen MD Admit Provider, Other Provider Active Dr. Ty Rocha MD Other Provider Active Dr. Kassidy Velez MD Attending Provider, Other Provid er Active Dr. Maeve Coreas MD Other Provider Active Team Status: Active Member Role Status Dates Dr. Mery Raymond MD Primary Care Provider Active Dr. Chema Alex MD Attending Provider Active Team Status: Inactive Member Role Status Dates Dr. Mery Raymond MD Primary Care Provider Active Dr. Jaja Boudreaux MD Emergency Provider Active Dr. Purvi Jensen MD Admit Provider, Other Provider Active Dr. Ty Rocha MD Other Provider Active Dr. Kassidy Velez MD Attending Provider Active Dr. Maeve Coreas MD Other Provider Active Team Status: Active Member Role Status Dates Dr. Mery Raymond MD Primary Care Provider Active Hank GONSALES Attending Provider, Referring Provide r Active Team Status: Active Member Role Status Dates Dr. Mery Raymond MD Primary Care Provider Active Dr. Linus Yanez MD Emergency Provider Active Dr. Lyle Coleman MD Admit Provider, Attending Pro vider Active Team Status: Active Member Role Status Dates Dr. Mery Raymond MD Primary Care Provider Active Dr. Linus Yanez MD Emergency Provider Active Dr. Lyle Coleman MD Admit Provider, Attending Provider, Other Provider Active Team Status: Active Member Role Status Dates Dr. Mery Raymond MD Primary Care Provider Active Dr. Linus Yanez MD Emergency Provider Active Dr. Lyle Coleman MD Admit Provider, Other Provide r Active Dr. Tunde Miller , DO Attending Provider, Other Pro vider Active Dr. Cody Sears , DO Other Provider Active Team Status: Active Member Role Status Dates Dr. Mery Raymond MD Primary Care Provider Active Dr. Linus Yanez MD Emergency Provider Active Dr. Lyle Coleman MD Admit Provider, Other Provide r Active Dr. Tunde Miller , DO Other Provider Active Dr. Cody Sears , DO Other Provider Active Dr. Louie Gonzales , DO Attending Provider Active Team Status: Active Member Role Status Dates Dr. Mery Raymond MD Primary Care Provider Active Dr. Louie Gonzales , DO Attending Provider Active Team Status: Active Member Role Status Dates Dr. Mery Raymond MD Primary Care Provider Active Dr. Linus Yanez MD Emergency Provider Active Dr. Lyle Coleman MD Admit Provider, Other Provide r Active Dr. Cody Sears , DO Other Provider Active Dr. Cornelia Burns , DO Attending Provider, Other Provide r Active Dr. Tunde Miller , DO Other Provider Active Team Status: Active Member Role Status Dates Dr. Mery Raymond MD Primary Care Provider Active Dr. Linus Yanez MD Emergency Provider Active Dr. Lyle Coleman MD Admit Provider, Other Provide r Active Dr. Cody Sears , DO Other Provider Active Dr. Cornelia Burns , DO Other Provider Active Dr. Tunde Miller , DO Other Provider Active Dr. Louie Gonzales , DO Attending Provider Active Team Status: Inactive Member Role Status Dates Dr. Mery Raymond MD Primary Care Provider Active Dr. Linus Yanez MD Emergency Provider Active Dr. Lyle Coleman MD Admit Provider, Other Provide r Active Dr. Cody Sears , DO Other Provider Active Dr. Cornelia Burns , DO Attending Provider Active Dr. Tunde Miller , DO Other Provider Active Team Status: Inactive Member Role Status Dates Dr. Mery Raymond MD Primary Care Provider, Refer ring Provider Active Dr. Vishnu Urias MD Attending Provider Active Team Status: Active Member Role Status Dates Dr. Mery Raymond MD Primary Care Provider Active Dr. Chema Alex MD Attending Provider, Referring Pr ovider Active Team Status: Active Member Role Status Dates Dr. Mery Raymond MD Primary Care Provider Active Dr. Linus Yanez MD Emergency Provider Active Dr. Maeve Noel , Admit Provider, Attending Pr ovider Active Team Status: Active Member Role Status Dates Dr. Mery Raymond MD Primary Care Provider Active Dr. Linus Yanez MD Emergency Provider Active Dr. Lyle Coleman MD Admit Provider, Other Provide r Active Dr. Tunde Miller , DO Other Provider Active Dr. Cody Sears , DO Other Provider Active Dr. Louie Gonzales , DO Attending Provider Active Dr. Cornelia Burns , DO Referring Provider Active Team Status: Active Member Role Status Dates Dr. Mery Raymond MD Primary Care Provider Active Dr. Louie Gonzales , DO Attending Provider Active Dr. Cornelia Burns , DO Referring Provider Active Team Status: Active Member Role Status Dates Dr. Mery Raymond MD Primary Care Provider Active Dr. Linus Yanez MD Emergency Provider Active Dr. Lyle Coleman MD Admit Provider, Other Provide r Active Dr. Cody Sears , DO Other Provider Active Dr. Cornelia Burns , DO Referring Provider, Other Provide r Active Dr. Tunde Miller , DO Other Provider Active Dr. Louie Gonzales , DO Attending Provider Active Team Status: Active Member Role Status Dates Dr. Mery Raymond MD Primary Care Provider Active Dr. Linus Yanez MD Emergency Provider Active Dr. Maeve Noel , DO Admit Provider, Other Provid er Active Dr. Cornelia Burns , DO Attending Provider, Other Provide r Active Dr. Louie Gonzales , DO Other Provider Active Team Status: Active Member Role Status Dates Dr. Mery Raymond MD Primary Care Provider Active Dr. Louie Gonzales , DO Attending Provider Active Dr. Tunde Miller , DO Referring Provider Active Team Status: Active Member Role Status Dates Dr. Mery Raymond MD Primary Care Provider Active Dr. Linus Yanez MD Emergency Provider Active Dr. Maeve Noel , DO Admit Provider, Other Provid er Active Dr. Louie Gonzales , DO Other Provider Active Dr. Tunde Miller , DO Attending Provider, Other Pro vider Active Dr. Cornelia Burns , DO Other Provider Active Team Status: Active Member Role Status Dates Dr. Mery Raymond MD Primary Care Provider Active Dr. Linus Yanez MD Emergency Provider Active Dr. Maeve Noel , DO Admit Provider, Other Provid er Active Dr. Louie Gonzales , DO Attending Provider, Other Prov ider Active Dr. Tunde Miller , DO Referring Provider, Other Pro vider Active Dr. Cornelia Burns , DO Other Provider Active Team Status: Inactive Member Role Status Dates Dr. Mery Raymond MD Primary Care Provider, Refer ring Provider Active Dr. Louie Gonzales , DO Attending Provider Active Team Status: Inactive Member Role Status Dates Dr. Mery Raymond MD Primary Care Provider, Refer ring Provider Active Brown Wayt PA, PA Attending Provider Active Team Status: Inactive Member Role Status Dates Dr. Mery Raymond MD Primary Care Provider Active Dr. Linus Yanez MD Emergency Provider Active Dr. Maeve Noel DO Admit Provider, Other Provid er Active Dr. Louie Gonzales , DO Other Provider Active Dr. Tunde Miller DO Attending Provider Active Dr. Cornelia Burns , DO Other Provider Active Team Status: Inactive Member Role Status Dates Dr. Mery Raymond MD Primary Care Provider Active Brown HOBBS, PA Attending Provider, Referring Prov ider Active Team Status: Active Member Role Status Dates Dr. Mery Raymond MD Primary Care Provider, Atten ding Provider Active Team Status: Inactive Member Role Status Dates Dr. Mery Raymond MD Primary Care Provider Active Dr. Jaja Boudreaux MD Emergency Provider Active Team Status: Active Member Role Status Dates Dr. Mery Raymond MD Primary Care Provider Active Dr. Jaja Boudreaux MD Emergency Provider Active Dr. Maeve Noel DO Admit Provider, Attending Pr ovider Active Team Status: Active Member Role Status Dates Dr. Mery Raymond MD Primary Care Provider Active Dr. Jaja Boudreaux MD Emergency Provider Active Dr. Maeve Noel DO Admit Provider, Other Provid er Active Dr. Kassidy Velez MD Attending Provider, Other Provid er Active Team Status: Inactive Member Role Status Dates Dr. Mery Raymond MD Primary Care Provider Active Dr. Jaja Boudreaux MD Emergency Provider Active Dr. Maeve Noel DO Admit Provider, Other Provid er Active Dr. Kassidy Velez MD Attending Provider Active Team Status: Inactive Member Role Status Dates Dr. Mery Raymond MD Primary Care Provider Active Dr. Jaja Boudreaux MD Attending Provider, Emergency Provider Active Team Status: Inactive Member Role Status Dates Dr. Mery Raymond MD Primary Care Provider, Atten ding Provider Active Team Status: Inactive Member Role Status Dates Dr. Mery Raymond MD Primary Care Provider, Refer ring Provider Active Dr. Damion Hawkins MD Attending Provider Active Team Status: Inactive Member Role Status Dates Dr. Mery Raymond MD Primary Care Provider, Refer ring Provider Active Stephanie Schultz PA, PA Attending Provider Active Team Status: Active Member Role Status Dates Dr. Mery Raymond MD Primary Care Provider Active Dr. Robb Hua MD Attending Provider Active Dr. Kassidy Velez MD Referring Provider Active Team Status: Active Member Role Status Dates Dr. Mery Raymond MD Primary Care Provider Active Dr. Brady Zaidi MD Emergency Provider Active Dr. Cornelia Burns DO Attending Provider Active Team Status: Active Member Role Status Dates Dr. Mery Raymond MD Primary Care Provider Active Dr. Kassidy Velez MD Attending Provider, Referring Pr ovider Active Team Status: Active Member Role Status Dates Dr. Mery Raymond MD Primary Care Provider Active Dr. Brady Zaidi MD Emergency Provider Active Dr. Cornelia Burns DO Admit Provider, Attending Provide r Active Team Status: Inactive Member Role Status Dates Dr. Mery Raymond MD Primary Care Provider Active Dr. Brady Zaidi MD Emergency Provider Active Team Status: Active Member Role Status Dates Dr. Mery Raymond MD Primary Care Provider Active Dr. Brady Zaidi MD Emergency Provider Active Dr. Cornelia Burns DO Admit Provider, Att ending Provider, Other Provider Active Team Status: Inactive Member Role Status Dates Dr. Mery Raymond MD Primary Care Provider Active Dr. Brady Zaidi MD Emergency Provider Active Dr. Cornelia Burns DO Admit Provider, Attending Provide r Active Team Status: Active Member Role Status Dates Dr. Mery Raymond MD Primary Care Provider Active Dr. Damion Hawkins MD Attending Provider Active Team Status: Active Member Role Status Dates Dr. Mery Raymond MD Primary Care Provider, Refer ring Provider Active Ada Kearns Attending Provider Active Team Status: Inactive Member Role Status Dates Dr. Mery Raymond MD Primary Care Provider Active Dr. Damion Hawkins MD Attending Provider Active Team Status: Inactive Member Role Status Dates Dr. Mery Raymond MD Primary Care Provider, Refer ring Provider Active Ada Kearns Attending Provider Active Team Status: Active Member Role Status Dates Dr. Mery Raymond MD Primary Care Provider, Refer ring Provider Active Dr. Robb Hua MD Admit Provider, Other Provider Ac tive Dr. Maeve Noel DO Attending Provider, Other Pr ovider Active Team Status: Active Member Role Status Dates Dr. Mery Raymond MD Primary Care Provider, Refer ring Provider Active Dr. Robb Hua MD Admit Provider, Att ending Provider, Other Provider Active Dr. Kingsley Hollis MD Other Provider Active Team Status: Inactive Member Role Status Dates Dr. Mery Raymond MD Primary Care Provider, Refer ring Provider Active Dr. Robb Hua MD Admit Provider, Attending Provide r Active Dr. Kingsley Hollis MD Other Provider Active Team Status: Active Member Role Status Dates Dr. Mery Raymond MD Primary Care Provider Active Dr. Robb Hua MD Admit Provider, Ref erring Provider, Other Provider Active Dr. Maeve Noel DO Attending Provider, Other Pr ovider Active Team Status: Inactive Member Role Status Dates Dr. Mery Raymond MD Primary Care Provider Active Dr. Robb Hua MD Attending Provider, Referring Pro vider Active Team Status: Inactive Member Role Status Dates Dr. Mery Raymond MD Primary Care Provider Active Dr. Robb Hua MD Attending Provider Active Team Status: Active Member Role Status Dates Dr. Mery Raymond MD Primary Care Provider, Refer ring Provider Active Dr. Louie Gonzales DO Attending Provider, Other Prov ider Active Team Status: Inactive Member Role Status Dates Dr. Mery Raymond MD Primary Care Provider Active Dr. Reed Wolf MD Emergency Provider Active Team Status: Inactive Member Role Status Dates Dr. Mery Raymond MD Primary Care Provider Active Dr. Reed Wolf MD Attending Provider, Emergency Provi kris Active Team Status: Active Member Role Status Dates Dr. Mery Raymond MD Primary Care Provider Active Dr. Harinder Woods DO Emergency Provider Active Dr. Narendra Schwartz MD Admit Provi kris, Attending Provider, Referring Provider Active Team Status: Active Member Role Status Dates Dr. Mery Raymond MD Primary Care Provider Active Dr. Harinder Woods DO Emergency Provider Active Dr. Narendra Schwartz MD Admit Provi kris, Attending Provider, Referring Provider, Other Provider Active Team Status: Active Member Role Status Dates Dr. Mery Raymond MD Primary Care Provider Active Dr. Harinder Woods DO Emergency Provider Active Dr. Narendra Schwartz MD Admit Provi kris, Referring Provider, Other Provider Active Dr. Tunde Miller DO Attending Provider, Other Pro vider Active Team Status: Inactive Member Role Status Dates Dr. Mery Raymond MD Primary Care Provider Active Dr. Harinder Woods DO Emergency Provider Active Dr. Narendra Schwartz MD Admit Provi kris, Referring Provider, Other Provider Active Dr. Tunde Miller DO Attending Provider Active Team Status: Inactive Member Role Status Dates Dr. Mery Raymond MD Primary Care Provider Active Ada Kearns Active Dr. Robb Hua MD Attending Provider, Referring Pro vider Active Team Status: Active Member Role Status Dates Dr. Mery Raymond MD Primary Care Provider Active Dr. Harinder Woods DO Emergency Provider Active Dr. Narendra Schwartz MD Admit Provi kris, Attending Provider, Other Provider Active Team Status: Active Member Role Status Dates Dr. Mery Raymond MD Primary Care Provider Active Dr. Harinder Woods DO Emergency Provider Active Dr. Narendra Schwartz MD Admit Provider, Other Pro vider Active Dr. Tunde Miller DO Attending Provider, Other Pro vider Active Team Status: Inactive Member Role Status Dates Dr. Mery Raymond MD Primary Care Provider Active Darian Vargas MD Emergency Provider Active Team Status: Active Member Role Status Dates Dr. Hank Negrete MD Primary Care Provider Active Team Status: Inactive Member Role Status Dates Dr. Hank Negrete MD Primary Care Provider Active Start: March 15, 2024 End: March 15, 2024 Dr. Hank Negrete MD Referring Provider Active Start: March 15, 2024 End: March 15, 2024 MAVERICK Shields Attending Provider Active Start: March 15, 2024 End: March 15, 2024 Team Status: Inactive Member Role Status Dates Dr. Hank Negrete MD Primary Care Provider Active Start: March 18, 2024 End: March 18, 2024 Dr. Robb Hua MD Attending Provider Active S tart: March 18, 2024 End: March 18, 2024 Dr. Robb Hua MD Referring Provider Active S tart: March 18, 2024 End: March 18, 2024 Team Status: Inactive Member Role Status Dates Dr. Hank Negrete MD Primary Care Provider Active Start: April 09, 2024 End: April 09, 2024 Africa Wei FARM OPERATOR-C Attending Provider Active Start: April 09, 2024 End: April 09, 2024 Africa Wei NP-C Referring Provider Active Start: April 09, 2024 End: April 09, 2024 Team Status: Active Member Role Status Dates Dr. Hank Negrete MD Primary Care Provider Active Start: April 16, 2024 Africa Wei FARM OPERATOR-C Referring Provider Active Start: April 16, 2024 Africa Wei FARM OPERATOR-C Other Provider Active St art: April 16, 2024 Dr. Antonio Garcia DO Attending Provider Active S tart: April 16, 2024 Team Status: Inactive Member Role Status Dates Dr. Hank Negrete MD Primary Care Provider Active Start: April 25, 2024 End: April 25, 2024 Dr. Hank Negrete MD Referring Provider Active Start: April 25, 2024 End: April 25, 2024 Dr. Vishnu Urias MD Attending Provider Active Sta rt: April 25, 2024 End: April 25, 2024 Team Status: Inactive Member Role Status Dates Dr. Hank Negrete MD Primary Care Provider Active Start: May 03, 2024 End: May 03, 2024 Dr. Hank Negrete MD Referring Provider Active Start: May 03, 2024 End: May 03, 2024 Ariana Juarez NP, FARM OPERATOR-C Attending Provider Active Start: May 03, 2024 End: May 03, 2024 Team Status: Inactive Member Role Status Dates Dr. Hank Negrete MD Primary Care Provider Active Start: June 14, 2024 End: June 14, 2024 Dr. Hank Negrete MD Referring Provider Active Start: June 14, 2024 End: June 14, 2024 ANJEL cMclure Attending Provider Active Start: June 14, 2024 End: June 14, 2024 Team Status: Inactive Member Role Status Dates Dr. Hank Negrete MD Primary Care Provider Active Start: June 17, 2024 End: June 17, 2024 Dr. Robb Hua MD Attending Provider Active S tart: June 17, 2024 End: June 17, 2024 Dr. Robb Hua MD Referring Provider Active S tart: June 17, 2024 End: June 17, 2024 Team Status: Inactive Member Role Status Dates Dr. Hank Negrete MD Primary Care Provider Active Start: June 21, 2024 End: June 21, 2024 ANJEL Mcclure Attending Provider Active Start: June 21, 2024 End: June 21, 2024 ANJEL Mcclure Referring Provider Active Start: June 21, 2024 End: June 21, 2024 Team Status: Inactive Member Role Status Dates Dr. Hank Negrete MD Primary Care Provider Active Start: July 22, 2024 End: July 22, 2024 Dr. Hank Negrete MD Referring Provider Active Start: July 22, 2024 End: July 22, 2024 Dr. Adrian Villalta MD Attending Provider Active Start: July 22, 2024 End: July 22, 2024 Team Status: Inactive Member Role Status Dates Dr. Hank Negrete MD Primary Care Provider Active Start: August 01, 2024 End: August 01, 2024 Dr. Hank Negrete MD Referring Provider Active Start: August 01, 2024 End: August 01, 2024 Ariana Juarez FARM OPERATOR, FARM OPERATOR-C Attending Provider Active Start: August 01, 2024 End: August 01, 2024 Team Status: Inactive Member Role Status Dates Dr. Hank Negrete MD Primary Care Provider Active Start: August 09, 2024 End: August 12, 2024 Dr. Brady Zaidi MD Emergency Provider Active Start: August 09, 2024 End: August 12, 2024 Dr. Chey Kearney MD Admit Provider Active St art: August 09, 2024 End: August 12, 2024 Dr. Chey Kearney MD Attending Provider Active Start: August 09, 2024 End: August 12, 2024 Dr. Chey Kearney MD Referring Provider Active Start: August 09, 2024 End: August 12, 2024 Team Status: Active Member Role Status Dates Dr. Hank Negrete MD Primary Care Provider Active Start: August 09, 2024 End: August 09, 2024 Dr. Robb Hua MD Attending Provider Active S tart: August 09, 2024 End: August 09, 2024 Dr. Purvi Jensen MD Referring Provider Active Start: August 09, 2024 End: August 09, 2024 Team Status: Active Member Role Status Dates Dr. Hank Negrete MD Primary Care Provider Active Start: August 10, 2024 Dr. Ty Rocha MD Attending Provider Active Start: August 10, 2024 Team Status: Active Member Role Status Dates Dr. Hank Negrete MD Primary Care Provider Active Start: August 10, 2024 Dr. Brady Zaidi MD Emergency Provider Active Start: August 10, 2024 Dr. Chey Kearney MD Admit Provider Active St art: August 10, 2024 Dr. Chey Kearney MD Attending Provider Active Start: August 10, 2024 Dr. Chey Kearney MD Other Provider Active St art: August 10, 2024 Team Status: Active Member Role Status Dates Dr. Hank Negrete MD Primary Care Provider Active Start: August 11, 2024 Dr. Brady Zaidi MD Emergency Provider Active Start: August 11, 2024 Dr. Chey Kearney MD Admit Provider Active St art: August 11, 2024 Dr. Chey Kearney MD Attending Provider Active Start: August 11, 2024 Dr. Chey Kearney MD Other Provider Active St art: August 11, 2024 Team Status: Active Member Role Status Dates Dr. Hank Negrete MD Primary Care Provider Active Start: August 12, 2024 Dr. Brady Zaidi MD Emergency Provider Active Start: August 12, 2024 Dr. Chey Kearney MD Admit Provider Active St art: August 12, 2024 Dr. Chey Kearney MD Attending Provider Active Start: August 12, 2024 Dr. Chey Kearney MD Other Provider Active St art: August 12, 2024 Team Status: Inactive Member Role Status Dates Dr. Hank Negrete MD Primary Care Provider Active Start: August 15, 2024 End: August 15, 2024 Dr. Hank Negrete MD Referring Provider Active Start: August 15, 2024 End: August 15, 2024 Stephanie HOBBS, PA Attending Provider Active Start: August 15, 2024 End: August 15, 2024 Team Status: Inactive Member Role Status Dates Dr. Hank Negrete MD Primary Care Provider Active Start: September 04, 2024 End: September 04, 2024 Dr. Hank Negrete MD Referring Provider Active Start: September 04, 2024 End: September 04, 2024 Dr. Louie Gonzales DO Attending Provider Active Start: September 04, 2024 End: September 04, 2024 Team Status: Active Member Role Status Dates Dr. Hank Negrete MD Primary Care Provider Active Start: September 04, 2024 Dr. Hank Negrete MD Referring Provider Active Start: September 04, 2024 Dr. Louie Gonzales DO Attending Provider Active Start: September 04, 2024 Dr. Louie Gonzales DO Other Provider Active St art: September 04, 2024 Team Status: Active Member Role Status Dates Dr. Stephan Castrejon MD Attending Provider Active Start: August 10, 2024 Dr. Chey Kearney MD Referring Provider Active Start: August 10, 2024 Team Status: Inactive Member Role Status Dates Dr. Hank Negrete MD Primary Care Provider Active Start: September 16, 2024 End: September 16, 2024 Dr. Robb Hua MD Attending Provider Active S tart: September 16, 2024 End: September 16, 2024 Source Comments (unrecognize d section and content) In the event this informatio n is protected by the Federal Confidentiality of Alcohol and Drug Abuse Patient Records regulations: The Federal rules restrict any use of the information to criminally investigate or prosecute any alcohol or drug abuse patient.[facility] Reason for Visit (unrecogniz ed section and content) Reason Comments Consult Urinary difficulty FOR RECORDS PERTAINING TO PATIENTS WHO ARE [...] BE BASED ON THE PRIMARY CLINICAL RECORDS. [facility] [employer] [facility]. provides no warranty or guarantee of the accuracy or completeness of information in this document.
[2024-10-24] MEDS: Lactobacillis Acidophilus 1 CAP PO (21:13)
[2024-10-24] MEDS: Metoprolol(XL)Succ 50 MG Tablet PO (21:13)
[2024-10-24 21:17] LABS: Magnesium 2.0 mg/dL (1.5-2.2)
[2024-10-24 21:31] LABS: Mucous, Urine 0 SEEN /hpf (<or=2+); Squamous Epithelial Cells - UA 0 SEEN /hpf (0-5)
[2024-10-24 21:37] LABS: Color, Urine Yellow (Yellow); Glucose, Dipstick Normal (Normal); Ketone-Dipstick Negative (Negative); Leukocyte Esterase-Dipstick 100 /ul (Negative); Nitrite-Dipstick Negative (Negative); Occult Blood-Urine Negative /ul (Negative); Protein-Dipstick 30 mg/dl (Negative); Specific Gravity, Urine 1.010 (1.002-1.030); Urine Bilirubin Dipstick Negative (Negative)
[2024-10-24 21:59] LABS: Red Blood Cells-Urine 0-5 SEEN /hpf (0-5)
[2024-10-24 22:00] LABS: Calcium Oxalate Crystals Ur 1+ /hpf (<or=2+)
[2024-10-24 22:08] LABS: PTHIN 155 pg/mL (11-61)
[2024-10-24 23:19] LABS: Troponin T High Sens 4 HR 120 ng/L (<=22)
[2024-10-25] VITALS (15 sets, daily range): BP systolic 124–144; BP diastolic 66–77; PULSE 70–73; RESP 12–26; TEMP 36–36.5; O2SAT 92–99; BMI 38.6
[2024-10-25] MEDS: Budesonide Respules 0.5 MG/2 ML AMPUL.NEB. 1 MG INHALATION ×3 (00:21→19:24)
[2024-10-25] MEDS: Albuterol 2.5 MG/3 ML VIAL.NEB. INHALATION ×3 (00:21→19:24)
--- NOTE | 2024-10-25 05:10 | RAD_ITS ---
PROCEDURE: CHEST 1 VIEW (PORTABLE) 10/25/2024 REASON FOR EXAM: AE CHF TECHNIQUE: Frontal view of the chest. COMPARISON: 10/24/2024 FINDINGS: Lordotic positioning. Normal heart size. Elevated right hemidiaphragm. Unremarkable cardiac device. Under aeration at the right lung base. Stable mild interstitial prominence, chronic and/or mild edema. No effusion or pneumothorax. RAD/Chest 1 View (Portable) IMPRESSION: Possible mild interstitial edema. Severe bilateral shoulder degeneration. [id number]
[2024-10-25 06:24] LABS: Hematocrit 30.2 % (40-54); Hemoglobin 9.0 g/dL (13.0-16.5); Immature Granulocytes Count 0.030 X10^3/uL (0.0-0.0); Mean Corp Hgb Conc 29.8 g/dL (32-36); Mean Corpuscular Volume 86.5 fL (80-94); Mean Platelet Vol. 9.3 fl (6.2-12.0); NRBC Flagged by Analyzer 0 % (0-5); POSITIVE DIFFERENTIAL YES; Platelet Count 242 K/mm3 (150-450); RBC Distribution Width CV 18.0 % (11.6-14.6); RBC Distribution Width SD 56.4 fl (35.1-43.9); Red Blood Count 3.49 M/mm3 (4.6-6.2); White Blood Count 6.5 K/mm3 (4.4-11.0)
[2024-10-25 06:53] LABS: AST(SGOT) 21 U/L (<=37); Alanine Aminotransfer ALT/SGPT 15 U/L (<=46); Albumin, Serum 3.8 g/dL (3.4-4.8); Alkaline Phosphatase 59 U/L (40-129); Anion Gap 11 (5-15); BUN 34 mg/dL (4-19); BUN/Creat Ratio 18.4 RATIO (10-20); Calcium,Total 12.0 mg/dL (7.6-11.0); Carbon Dioxide 27.7 mmol/L (21.0-32.0); Chloride 103 mmol/L (98-108); Estimated Creatinine Clearance 50.50 ml/min (50-250); Globulin 3.1 g/dL (2.2-4.2); Glucose 108 mg/dL (70-99); Potassium 3.8 mmol/L (3.3-5.1)
--- NOTE | 2024-10-25 07:17 | PN.HOSP_ITS ---
Reason for Visit Chief Complaint: SOB and Chest Tightness. Subjective Subjective Patient with no acute events overnight per self and per nursing report. He does state since presentation and continued IV diuresis that he feels less short of breath and is able to lay more flat. He denies any episodes of chest discomfort. Discussed plan of care which included continued IV diuresis through the day and potentially transition to oral Lasix in 24 hours which is amenable. Patient denies fevers, chills, nausea, emesis, abdominal pain. Objective Data Objective Data Vital Signs: Vital Signs Temp Pulse Resp BP Pulse Ox O2 Del Method O2 Flow Rate 97.3 F L 70 26 H 137/74 H 95 Nasal Cannula 2 10/25/24 03:20 10/25/24 06:20 10/25/24 03:20 10/25/24 06:20 10/25/24 06:28 10/25/24 06:28 10/25/24 06:28 FiO2 30 10/25/24 03:21 Oxygen Flow Rate (L/min) 2 Oxygen Delivery Method Nasal Cannula Weight: 269 lb 2.951 oz Body Mass Index (BMI) 38.6 Intake & Output: Intake and Output for Last 24 Hours 10/23/24 10/24/24 10/25/24 23:59 23:59 23:59 Intake Total 220 / 220 170 / 170 Output Total 300 / 300 550 / 550 Balance -80 / -80 -380 / -380 Lab / Micro Data 10/25/24 05:47 10/25/24 05:47 Labs: Laboratory Results - last 24 hr 10/24/24 17:15: WBC 7.6, RBC 3.67 L, Hgb 9.6 L, Hct 31.5 L, MCV 85.8, MCH 26.2 L , MCHC 30.5 L, RDW Std Deviation 56.7 H, RDW Coeff of Thao 18.0 H, Plt Count 264, MPV 9.5, Immature Gran % (Auto) 0.700, Neut % (Auto) 84.1 H, Lymph % (Auto) 2.9 L, Major % (Auto) 9.7, Eos % (Auto) 2.1, Baso % (Auto) 0.5, Absolute Neuts (auto) 6.4, Absolute Lymphs (auto) 0.22 L, Nucleated RBC % 0, Sodium 140, Potassium 4.1, Chloride 102, Carbon Dioxide 27.5, Anion Gap 10, BUN 34 H, Creatinine 1.88 H, Estim Creat Clear Calc 49.81 L, Est GFR (MDRD) Non-Af 39 L, BUN/Creatinine Ratio 18.1, Glucose 176 H, Calcium 12.0 H, Troponin T High Sens 119 H*, NT pro BNP II 6474 H, PTH Intact 155 H 10/24/24 19:25: Magnesium 2.0, Troponin T Hi Sens 2 Hr 122 H* 10/24/24 20:30: POC Glucose 134 H 10/24/24 21:19: Urine Color Yellow, Urine Clarity Clear, Urine pH 5.0, Ur Specific [place] 1.010, Urine Protein 30 H, Urine Glucose (UA) Normal, Urine Ketones Negative, Urine Occult Blood Negative, Urine Nitrite Negative, Urine Bilirubin Negative, Urine Urobilinogen Normal, Ur Leukocyte Esterase 100 H, Urine RBC 0-5 SEEN, Urine WBC 10-25 SEEN, Ur Squamous Epith Cells 0 SEEN, Calcium Oxalate Crystal 1+, Urine Bacteria 1+, Urine Mucus 0 SEEN 10/24/24 22:19: Troponin T Hi Sens 4Hr 120 H* 10/25/24 03:27: POC Glucose 117 H 10/25/24 05:47: WBC 6.5, RBC 3.49 L, Hgb 9.0 L, Hct 30.2 L, MCV 86.5, MCH 25.8 L , MCHC 29.8 L, RDW Std Deviation 56.4 H, RDW Coeff of Thao 18.0 H, Plt Count 242, MPV 9.3, Immature Gran % (Auto) 0.500, Neut % (Auto) 79.3 H, Lymph % (Auto) 4.3 L, Major % (Auto) 12.7 H, Eos % (Auto) 2.6, Baso % (Auto) 0.6, Absolute Neuts (auto) 5.1, Absolute Lymphs (auto) 0.28 L, Nucleated RBC % 0, Sodium 141, Potassium 3.8, Chloride 103, Carbon Dioxide 27.7, Anion Gap 11, BUN 34 H, C reatinine 1.86 H, Estim Creat Clear Calc 50.50, Est GFR (MDRD) Non-Af 39 L, BUN/Creatinine Ratio 18.4, Glucose 108 H, Hemoglobin A1c 7.1 H, Calcium 12.0 H, Phosphorus 2.6 L, Total Bilirubin 0.98, AST 21, ALT 15, Alkaline Phosphatase 59, Total Protein 6.9, Albumin 3.8, Globulin 3.1, Albumin/Globulin Ratio 1.2, TSH 2.090 Radiography Diagnostic Testing: Radiology Impression Chest X-Ray 10/24/24 16:25 IMPRESSION: Congestive heart failure. Reading Location: [place] [id number] Chest X-Ray 10/25/24 05:10 IMPRESSION: Possible mild interstitial edema. Severe bilateral shoulder degeneration. Reading Location: [place] [id number] Physical Exam Narrative Physical Examination: General: Awake, alert, oriented x 3 and cooperative, laying in the PCU bed, fatigued appearing but no acute distress, notes feeling improved since ED presentation. Skin: Normal color, normal turgor, no icterus, no cyanosis except chronic bilateral lower extremity lymphedema with chronic venous stasis skin changes. HEENT: AT/NC, EOMI, PERRLA, MMM. Lungs: Diminished, greater bases, appropriate effort, no overly noted rales, ronchi or wheezing. Heart: Irregular, rate controlled; no gallop, rub audible. Abdomen: Soft, obese, NTTP, distant BS, no overt distention but habitus makes evaluation difficult. Extremities: No cyanosis, no clubbing, chronic bilateral lower extremity lymphedema 2-3+ pitting with chronic venous stasis skin changes. Neurological: Patient awake, alert, oriented as noted, cognitive function intact; pupils equally reactive to light and accommodation, cranial nerves II- XII grossly normal, moving all 4 extremities, no focal deficits, strength moderately to severely globally decreased secondary to acute presentation. Psychiatric: Affect appears fatigued, no acute evidence of depressive or anxiety feelings but does have underlying history. Assessment & Plan Assessment/Plan (1) Acute exacerbation of CHF (congestive heart failure): QUALIFIERS: Heart failure type: diastolic Qualified Code(s): I 50.33 - Acute on chronic diastolic (congestive) heart failure (2) Elevated troponin: (3) Exertional chest pain: (4) Acute and chronic respiratory failure with hypoxia: (5) Acute cystitis without hematuria: (6) Hypercalcemia: (7) Obesity (BMI 30-39.9): PLAN: Plan The patient is a 67 y/o M w/ PMHx: Hx SSS s/p pacemaker status, Hyperparathyroidism with hypercalcemia, CKD stage III unclear subtype, Chronic normocytic anemia/iron deficiency anemia, Anxiety and Depression, CAD s/p PCI, Asthma, Hx VTE (DVT, PE), HTN, HLD, FAVIAN, Seizure disorder, Diabetes mellitus type II, PAF, HFpEF who presents to the [facility] ED on 10/24/2024 with history of notably worsening dyspnea. #1. Acute on Chronic Hypoxic Respiratory Failure secondary to Acutely Decompensated HFpEF with chronic bilateral lower extremity lymphedema/venous stasis disease with chronically elevated cardiac troponin suspected secondary to demand ischemia/hypoxia: Admitted to PCU, maintain on cardiac telemetry, obtain serial EKGs, continue IV lasix diuresis, monitor I/Os, maintain on intake restriction, continue medical therapy including Plavix, fenofibrate now on statin therapy, hydralazine, metoprolol, Ranexa, spironolactone in addition to IV Lasix as noted, not on LUCIAN/ARB likely secondary to underlying renal disease, cardiac enzyme trending with initial 199 > 122--> 120 similar to previous chronically elevated troponin levels, TSH 2.090, magnesium 2.0, most recent echocardiogram noted 08/09/2024 with EF 55 to 60%, overall normal LV systolic function, moderate MR, mild to moderate TR, dilated IVC, no change from previous echocardiogram thus deferred repeat. Pending continued IV diuresis results possible transition 10/26/2024 to oral Lasix regimen. #2. Questionable Acute Complicated Urinary Tract Infection: UA upon ED evaluation mildly remarkable, pending UCx, monitor I/Os, continue IV w/ transition as able pending sensitivities and speciation versus de-escalation off if no marked growth. #3. CAD: Status post notable PCI intervention, cautiously continued on Plavix therapy especially given history of previous GI bleed, #4. Chronic normocytic anemia/iron deficiency anemia: Admission hemoglobin 9.6, MCV 85.8, baseline hemoglobin primarily 9-10, stable, continue to trend. Continue oral iron supplementation. 10/25/2024 hemoglobin 9.0, MCV 86.5. #5. History sick sinus syndrome: Status post pacemaker placement per Dr. Melita, encourage continued outpatient follow-up with cardiology as previously arranged. #6. Hyperparathyroidism with hypercalcemia: Admission BMP with calcium 12.0, near baseline, will continue Cinacalcet regimen, encourage continued outpatient follow-up as previously arranged. 10/25/2024 calcium repeat 12.0, 10/24/2024 parathyroid hormone 155. #7. PAF: We will continue patient home metoprolol regimen, maintained on Plavix, not chronically anticoagulated secondary to history of GI bleed. #8. Diabetes mellitus type II: 10/24/24 HgBA1c 7.1%, hold oral home regimen, continue home insulin regimen, ADA diet, accu checks w/ ISS. #9. Anxiety and depression: Will continue patient home Paxil regimen. #10. Chronic Kidney Disease Stage III, unclear subtype: Admission BUN/Cr 34/1.88, GFR 39, baseline renal function primarily 1.8-2.3 per recent trending, 10/25/2024 BUN/creatinine 30/1.86, GFR 39, continue to trend. #11. Hypertension: Continue home regimen including IV Lasix as noted above, hydralazine, spironolactone, metoprolol with hold parameters as needed, PRN hydralazine. #12. Hyperlipidemia: Will continue home fenofibrate regimen, not on statin therapy as not tolerated. FLP in AM. #13. Obesity: Weight loss and lifestyle changes encouraged. #14. GERD with history of GI bleed: Will continue patient on PPI and sucralfate, cautiously utilize chemoprophylaxis. #15. BPH with obstructive pathology: Will continue patient home Flomax regimen, monitor for retention. #16. FAVIAN: BIPAP nightly. #17. DVT prophylaxis: SCDs, upon presentation chemoprophylaxis deferred given history of recurrent GI bleeds. #18. CODE status: Full Code status. Charges/Coding Visit Charges Inpatient E&M: 89817 Subs Hosp L3
[2024-10-25] MEDS: Lactobacillis Acidophilus 1 CAP PO ×2 (10:10→21:55)
[2024-10-25] MEDS: Insulin Glargine-YFGN 100 UNIT/ML Pen 23 UNIT SC (10:11)
[2024-10-25] MEDS: Potassium Chloride Oral Tablet 20 MEQ PO (10:11)
[2024-10-25] MEDS: Metoprolol(XL)Succ 50 MG Tablet PO ×2 (10:13→21:54)
[2024-10-25] MEDS: Cholecalciferol (VIT D3) 25 MCG TABLET (1,000 UNITS) 100 MCG PO (10:14)
[2024-10-25] MEDS: 0.9% Saline Lock 10 ML Syringe IV ×3 (10:15→17:48)
--- NOTE | 2024-10-25 12:47 | CASEMGMT ---
Social Work SW met with pt to discuss discharge plan. 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 DC assistant paralegal updated and to send clinicals to [facility]. Green sheet placed on chart to facilitate weekend discharge. Plan: [facility], when medically ready LAURENCE Noble
--- NOTE | 2024-10-25 14:43 | CASEMGMT ---
Discharge Planning Updates sent to [facility] with note that pt will likely return tomorrow. Jennifer Stringer DC Planning Asst.
[2024-10-26] VITALS (16 sets, daily range): BP systolic 112–141; BP diastolic 66–81; PULSE 70–73; RESP 12–25; TEMP 35.9–36.7; O2SAT 94–99; BMI 37.8
[2024-10-26 06:58] LABS: Hematocrit 31.2 % (40-54); Hemoglobin 9.4 g/dL (13.0-16.5); Immature Granulocytes Count 0.030 X10^3/uL (0.0-0.0); Mean Corp Hgb Conc 30.1 g/dL (32-36); Mean Corpuscular Volume 84.6 fL (80-94); Mean Platelet Vol. 9.5 fl (6.2-12.0); NRBC Flagged by Analyzer 0 % (0-5); POSITIVE DIFFERENTIAL YES; Platelet Count 274 K/mm3 (150-450); RBC Distribution Width CV 17.4 % (11.6-14.6); RBC Distribution Width SD 54.4 fl (35.1-43.9); Red Blood Count 3.69 M/mm3 (4.6-6.2); White Blood Count 7.0 K/mm3 (4.4-11.0)
[2024-10-26] MEDS: Albuterol 2.5 MG/3 ML VIAL.NEB. INHALATION ×2 (07:11→20:48)
[2024-10-26 07:33] LABS: AST(SGOT) 23 U/L (<=37); Alanine Aminotransfer ALT/SGPT 10 U/L (<=46); Albumin, Serum 3.7 g/dL (3.4-4.8); Alkaline Phosphatase 62 U/L (40-129); Anion Gap 12 (5-15); BUN 34 mg/dL (4-19); BUN/Creat Ratio 17.9 RATIO (10-20); Calcium,Total 11.9 mg/dL (7.6-11.0); Carbon Dioxide 27.9 mmol/L (21.0-32.0); Chloride 101 mmol/L (98-108); Cholesterol 139 mg/dL (<=200); Estimated Creatinine Clearance 49.38 ml/min (50-250); Globulin 3.3 g/dL (2.2-4.2); Glucose 129 mg/dL (70-99); Low Density Lipoprotein Calc. 90 mg/dL; Potassium 3.7 mmol/L (3.3-5.1); Triglycerides 143 mg/dL; Very Low Density Lipoprotein 29 mg/dL (5-40); cholesterol:hdl ratio screen 6.75
[2024-10-26] MEDS: Lactobacillis Acidophilus 1 CAP PO ×2 (08:10→22:12)
[2024-10-26] MEDS: Potassium Chloride Oral Tablet 20 MEQ PO (08:11)
[2024-10-26] MEDS: Cholecalciferol (VIT D3) 25 MCG TABLET (1,000 UNITS) 100 MCG PO (08:13)
[2024-10-26] MEDS: Metoprolol(XL)Succ 50 MG Tablet PO ×2 (08:13→22:13)
--- NOTE | 2024-10-26 08:22 | PCM.PN.HOSP ---
Reason for Visit Chief Complaint: SOB and Chest Tightness. Subjective Subjective Patient with no acute events overnight per self and per nursing report. He notes that he actually felt better yesterday than today as far as his dyspnea. Discussed recent weight trending and patient today prior was reportedly 269 pounds now down to 263 pounds. He notes he continues to diurese but it is decreased since the initial 24-hour presentation. Given his concern and ongoing dyspneic complaint discussed plan of care to transition to IV Lasix drip while cautiously monitoring his renal function to which she is amenable. Patient denies fevers, chills, nausea, emesis, abdominal pain, chest pain. Objective Data Objective Data Vital Signs: Vital Signs Temp Pulse Resp BP Pulse Ox O2 Del Method O2 Flow Rate 96.7 F L 71 18 141/81 H 95 Bi-pap 2 10/26/24 04:00 10/26/24 08:13 10/26/24 04:05 10/26/24 05:09 10/26/24 04:05 10/26/24 04:00 10/25/24 20:00 FiO2 30 10/26/24 04:05 Oxygen Flow Rate (L/min) 2 Oxygen Delivery Method Bi-pap Weight: 263 lb 3.711 oz Body Mass Index (BMI) 37.8 Intake & Output: Intake and Output for Last 24 Hours 10/24/24 10/25/24 10/26/24 23:59 23:59 23:59 Intake Total 220 / 220 980 / 1340 360 / 360 Output Total 300 / 300 2750 / 4950 2200 / 2200 Balance -80 / -80 -1770 / -3610 -1840 / -1840 Lab / Micro Data 10/26/24 06:04 10/26/24 06:04 Labs: Laboratory Results - last 24 hr 10/25/24 08:28: POC Glucose 109 H 10/25/24 11:32: POC Glucose 141 H 10/25/24 16:48: POC Glucose 165 H 10/25/24 21:44: POC Glucose 144 H 10/26/24 06:04: WBC 7.0, RBC 3.69 L, Hgb 9.4 L, Hct 31.2 L, MCV 84.6, MCH 25.5 L, MCHC 30.1 L, RDW Std Deviation 54.4 H, RDW Coeff of Thao 17.4 H, Plt Count 274, MPV 9.5, Immature Gran % (Auto) 0.400, Neut % (Auto) 80.7 H, Lymph % (Auto) 4.4 L, [place] % (Auto) 11.5 H, Eos % (Auto) 2.4, Baso % (Auto) 0.6, Absolute Neuts (auto) 5.6, Absolute Lymphs (auto) 0.31 L, Nucleated RBC % 0, Sodium 141, Potassium 3.7, Chloride 101, Carbon Dioxide 27.9, Anion Gap 12, BUN 34 H, Creatinine 1.88 H, Estim Creat Clear Calc 49.38 L, Est GFR (MDRD) Non-Af 39 L, BUN/Creatinine Ratio 17.9, Glucose 129 H, Calcium 11.9 H, Total Bilirubin 0.89, AST 23, ALT 10, Alkaline Phosphatase 62, Total Protein 7.0, Albumin 3.7, Globulin 3.3, Albumin/Globulin Ratio 1.1, Triglycerides 143, Cholesterol 139, LDL Cholesterol, Calc 90, VLDL Cholesterol 29, HDL Cholesterol 21 L, Cholesterol/HDL Ratio 6.75 Physical Exam Narrative Physical Examination: General: Awake, alert, oriented x 3 and cooperative, laying in the PCU bed, notes feels less well today and more dyspneic than day prior. Skin: Normal color, normal turgor, no icterus, no cyanosis except chronic bilateral lower extremity lymphedema with chronic venous stasis skin changes. HEENT: AT/NC, EOMI, PERRLA, MMM. Lungs: Diminished, greater bases, appropriate effort, no overly noted rales, ronchi or wheezing. Heart: Irregular, rate controlled; no gallop, rub audible. Abdomen: Soft, obese, NTTP, distant BS, no overt distention but habitus makes evaluation difficult. Extremities: No cyanosis, no clubbing, chronic bilateral lower extremity lymphedema 2-3+ pitting with chronic venous stasis skin changes. Neurological: Patient awake, alert, oriented as noted, cognitive function intact; pupils equally reactive to light and accommodation, cranial nerves II-XII grossly normal, moving all 4 extremities, no focal deficits, strength moderately to severely globally decreased secondary to acute presentation. Psychiatric: Affect appears more fatigued, no acute evidence of depressive or anxiety feelings but does have underlying history. Assessment & Plan Assessment/Plan (1) Acute exacerbation of CHF (congestive heart failure): QUALIFIERS: Heart failure type: diastolic Qualified Code(s): I50.33 - Acute on chronic diastolic (congestive) heart failure (2) Elevated troponin: (3) Acute and chronic respiratory failure with hypoxia: (4) Acute cystitis without hematuria: PLAN: Plan The patient is a 67 y/o M w/ PMHx: Hx SSS s/p pacemaker status, Hyperparathyroidism with hypercalcemia, CKD stage III unclear subtype, Chronic normocytic anemia/iron deficiency anemia, Anxiety and Depression, CAD s/p PCI, Asthma, Hx VTE (DVT, PE), HTN, HLD, FAVIAN, Seizure disorder, Diabetes mellitus type II, PAF, HFpEF who presents to the [facility] ED on 10/24/[facility]24 with history of notably worsening dyspnea. #1. Acute on Chronic Hypoxic Respiratory Failure secondary to Acutely Decompensated HFpEF with chronic bilateral lower extremity lymphedema/venous stasis disease with chronically elevated cardiac troponin suspected secondary to demand ischemia/hypoxia: Admitted to PCU, maintain on cardiac telemetry, obtain serial EKGs, continue initially on IV lasix diuresis, monitor I/Os, maintain on intake restriction, continue medical therapy including Plavix, fenofibrate now on statin therapy, hydralazine, metoprolol, Ranexa, spironolactone in addition to IV Lasix as noted, not on LUCIAN/ARB likely secondary to underlying renal disease, cardiac enzyme trending with initial 199 > 122--> 120 similar to previous chronically elevated troponin levels, TSH 2.090, magnesium 2.0, most recent echocardiogram noted 08/09/2024 with EF 55 to 60%, overall normal LV systolic function, moderate MR, mild to moderate TR, dilated IVC, no change from previous echocardiogram thus deferred repeat. 10/26/2024 weight trend 263 pounds down from previous day 269 pounds. 10/26/2024 given patient's symptoms we will transition to IV Lasix drip and transition off pulsed dose Lasix but closely monitor renal function, ideally would like to transition back to potentially his oral medication 10/27/2024 depending on his response and renal function. #2. Questionable Acute Complicated Urinary Tract Infection, RULED OUT: UA upon ED evaluation mildly remarkable, 10/26/2024 urine culture resulted without growth, will de-escalate off IV Rocephin. #3. CAD: Status post notable PCI intervention, cautiously continued on Plavix therapy especially given history of previous GI bleed, #4. Chronic normocytic anemia/iron deficiency anemia: Admission hemoglobin 9.6, MCV 85.8, baseline hemoglobin primarily 9-10, stable, continue to trend. Continue oral iron supplementation. 10/26/24 hemoglobin 9.4, MCV 84.6. #5. History sick sinus syndrome: Status post pacemaker placement per Dr. Hua, encourage continued outpatient follow-up with cardiology as previously arranged. #6. Known Hyperparathyroidism with hypercalcemia: Admission BMP with calcium 12.0, near baseline, will continue Cinacalcet regimen, encourage continued outpatient follow-up as previously arranged. 10/24/2024 parathyroid hormone 155. 10/26/2024 calcium 11.9. Will encourage follow-up outpatient with endocrinology at discharge. #7. PAF: We will continue patient home metoprolol regimen, maintained on Plavix, not chronically anticoagulated secondary to history of GI bleed. #8. Diabetes mellitus type II: 10/24/24 HgBA1c 7.1%, hold oral home regimen, continue home insulin regimen, ADA diet, accu checks w/ ISS. #9. Anxiety and depression: Will continue patient home Paxil regimen. #10. Chronic Kidney Disease Stage III, unclear subtype: Admission BUN/Cr 34/1.88, GFR 39, baseline renal function primarily 1.8-2.3 per recent trending, 10/26/2024 BUN/creatinine 30/1.88, GFR 39. #11. Hypertension: Continue home regimen including IV Lasix as noted above, hydralazine, spironolactone, metoprolol with hold parameters as needed, PRN hydralazine. #12. Hyperlipidemia: Will continue home fenofibrate regimen, not on statin therapy as not tolerated. FLP with triglycerides 143, total cholesterol 139, LDL 90, VLDL 29, HDL 21. #13. Obesity: Weight loss and lifestyle changes encouraged. #14. GERD with history of GI bleed: Will continue patient on PPI and sucralfate. #15. BPH with obstructive pathology: Will continue patient home Flomax regimen, monitor for retention. #16. FAVIAN: BIPAP nightly. #17. DVT prophylaxis: SCDs, upon presentation chemoprophylaxis deferred given history of recurrent GI bleeds. #18. CODE status: Full Code status. Charges/Coding Visit Charges Inpatient E&M: 14191 Subs Hosp L3
[2024-10-26] MEDS: Budesonide Respules 0.5 MG/2 ML AMPUL.NEB. 1 MG INHALATION ×2 (10:00→20:49)
[2024-10-26] MEDS: Insulin Glargine-YFGN 100 UNIT/ML Pen 23 UNIT SC (10:24)
[2024-10-26] MEDS: 0.9% Saline Lock 10 ML Syringe IV (10:27)
[2024-10-26] MEDS: Furosemide 500 MG in Empty Viaflex 50 mL 1 EACH CONT INF (12:25)
[2024-10-27] VITALS (7 sets, daily range): BP systolic 113–115; BP diastolic 68–79; PULSE 70–75; RESP 12–20; TEMP 36.6–36.7; O2SAT 97–100; BMI 35.9
--- NOTE | 2024-10-27 06:21 | NURSING ---
[facility] called regarding pts transfer request. [facility] network with hospital so needs to stay on list for [facility].
[2024-10-27 06:22] LABS: Hematocrit 33.0 % (40-54); Hemoglobin 10.1 g/dL (13.0-16.5); Immature Granulocytes Count 0.070 X10^3/uL (0.0-0.0); Mean Corp Hgb Conc 30.6 g/dL (32-36); Mean Corpuscular Volume 84.0 fL (80-94); Mean Platelet Vol. 9.5 fl (6.2-12.0); NRBC Flagged by Analyzer 0 % (0-5); POSITIVE DIFFERENTIAL YES; Platelet Count 322 K/mm3 (150-450); RBC Distribution Width CV 17.4 % (11.6-14.6); RBC Distribution Width SD 53.3 fl (35.1-43.9); Red Blood Count 3.93 M/mm3 (4.6-6.2); White Blood Count 8.5 K/mm3 (4.4-11.0)
--- NOTE | 2024-10-27 06:52 | PN.HOSP_ITS ---
Reason for Visit Chief Complaint: SOB and Chest Tightness. Subjective Subjective Patient with no acute events overnight per self and per nursing report. He notes feeling improved over last 24 hours maintained on Lasix continuous drip with weight this morning decreased down to 250 pounds. He notes his breathing has improved and he is able to be a bit more active with less fatigue and dyspnea. Discussed plan of care which included transition back to his oral regimen of Lasix and likely [facility] with ongoing therapies to which he is amenable. Patient denies fevers, chills, nausea, emesis, abdominal pain, chest pain. Objective Data Objective Data Vital Signs: Vital Signs Temp Pulse Resp BP Pulse Ox O2 Del Method O2 Flow Rate 98.1 F 74 18 113/79 100 Bi-pap 2 10/27/24 03:23 10/27/24 05:40 10/27/24 03:23 10/27/24 05:40 10/27/24 03:23 10/27/24 03:23 10/26/24 22:00 FiO2 45 10/27/24 03:23 Oxygen Flow Rate (L/min) 2 Oxygen Delivery Method Bi-pap Weight: 263 lb 3.711 oz Body Mass Index (BMI) 37.8 Intake & Output: Intake and Output for Last 24 Hours 10/25/24 10/26/24 10/27/24 23:59 23:59 23:59 Intake Total 980 / 1340 1020 / 1500 480 / 480 Output Total 2750 / 4950 4650 / 6450 1800 / 1800 Balance -1770 / -3610 -3630 / -4950 -1320 / -1320 Lab / Micro Data 10/27/24 05:44 10/27/24 05:44 Labs: Laboratory Results - last 24 hr 10/26/24 06:04: WBC 7.0, RBC 3.69 L, Hgb 9.4 L, Hct 31.2 L, MCV 84.6, MCH 25.5 L , MCHC 30.1 L, RDW Std Deviation 54.4 H, RDW Coeff of Thao 17.4 H, Plt Count 274, MPV 9.5, Immature Gran % (Auto) 0.400, Neut % (Auto) 80.7 H, Lymph % (Auto) 4.4 L, [place] % (Auto) 11.5 H, Eos % (Auto) 2.4, Baso % (Auto) 0.6, Absolute Neuts (auto) 5.6, Absolute Lymphs (auto) 0.31 L, Nucleated RBC % 0, Sodium 141, Potassium 3.7, Chloride 101, Carbon Dioxide 27.9, Anion Gap 12, BUN 34 H, C reatinine 1.88 H, Estim Creat Clear Calc 49.38 L, Est GFR (MDRD) Non-Af 39 L, BUN/Creatinine Ratio 17.9, Glucose 129 H, Calcium 11.9 H, Total Bilirubin 0.89, AST 23, ALT 10, Alkaline Phosphatase 62, Total Protein 7.0, Albumin 3.7, Globulin 3.3, Albumin/Globulin Ratio 1.1, Triglycerides 143, Cholesterol 139, LDL Cholesterol, Calc 90, VLDL Cholesterol 29, HDL Cholesterol 21 L, Cholesterol/HDL Ratio 6.75 10/26/24 08:07: POC Glucose 138 H 10/26/24 11:32: POC Glucose 163 H 10/26/24 16:17: POC Glucose 189 H 10/26/24 22:08: POC Glucose 230 H 10/27/24 05:44: WBC 8.5, RBC 3.93 L, Hgb 10.1 L, Hct 33.0 L, MCV 84.0, MCH 25.7 L, MCHC 30.6 L, RDW Std Deviation 53.3 H, RDW Coeff of Thao 17.4 H, Plt Count 322, MPV 9.5, Immature Gran % (Auto) 0.800, Neut % (Auto) 79.9 H, Lymph % (Auto) 3.9 L, [place] % (Auto) 12.9 H, Eos % (Auto) 1.9, Baso % (Auto) 0.6, Absolute Neuts (auto) 6.8, Absolute Lymphs (auto) 0.33 L, Nucleated RBC % 0 Micro: Microbiology 10/24/24 21:19 Urine, Random Urine Culture - Preliminary Culture exhibits no growth. Physical Exam Narrative Physical Examination: General: Awake, alert, oriented x 3 and cooperative, seated upright in the PCU bedside chair, notes feeling improved. Skin: Normal color, normal turgor, no icterus, no cyanosis except chronic bilateral lower extremity lymphedema with chronic venous stasis skin changes. HEENT: AT/NC, EOMI, PERRLA, MMM. Lungs: Diminished, greater bases, appropriate effort, no overly noted rales, ronchi or wheezing. Heart: Irregular, rate controlled; no gallop, rub audible. Abdomen: Soft, obese, NTTP, distant BS, no overt distention but habitus makes evaluation difficult. Extremities: No cyanosis, no clubbing, chronic bilateral lower extremity lymphedema, pitting is somewhat improved likely 2+ at this point, ongoing venostasis skin changes. Neurological: Patient awake, alert, oriented as noted, cognitive function intact; pupils equally reactive to light and accommodation, cranial nerves II- XII grossly normal, moving all 4 extremities, no focal deficits, strength improved, moderately to severely globally decreased. Psychiatric: Affect appears more interactive, normal, no acute evidence of depressive or anxiety feelings but does have underlying history. Assessment & Plan Assessment/Plan (1) Osteoarthritis: (2) Chronic pain: PLAN: Plan The patient is a 67 y/o M w/ PMHx: Hx SSS s/p pacemaker status, Hyperparathyroidism with hypercalcemia, CKD stage III unclear subtype, Chronic normocytic anemia/iron deficiency anemia, Anxiety and Depression, CAD s/p PCI, Asthma, Hx VTE (DVT, PE), HTN, HLD, FAVIAN, Seizure disorder, Diabetes mellitus type II, PAF, HFpEF who presents to the [facility] ED on 10/24/2024 with history of notably worsening dyspnea. #1. Acute on Chronic Hypoxic Respiratory Failure secondary to Acutely Decompensated HFpEF with chronic bilateral lower extremity lymphedema/venous stasis disease with chronically elevated cardiac troponin suspected secondary to demand ischemia/hypoxia: Admitted to PCU, maintain on cardiac telemetry, obtain serial EKGs, continue initially on IV lasix diuresis, monitor I/Os, maintain on intake restriction, continue medical therapy including Plavix, fenofibrate now on statin therapy, hydralazine, metoprolol, Ranexa, spironolactone in addition to IV Lasix as noted, not on LUCIAN/ARB likely secondary to underlying renal disease, cardiac enzyme trending with initial 199 > 122--> 120 similar to previous chronically elevated troponin levels, TSH 2.090, magnesium 2.0, most recent echocardiogram noted 08/09/2024 with EF 55 to 60%, overall normal LV systolic function, moderate MR, mild to moderate TR, dilated IVC, no change from previous echocardiogram thus deferred repeat. 10/26/2024 given patient's symptoms we will transition to IV Lasix drip and transition off pulsed dose Lasix. 10/25/24 269 lbs->10/26/2024 263 lbs-> 10/27/2024 250 pounds. 10/27/2024 given clinical improvement, resolution of symptoms and appropriate weight loss/fluid removal will plan to transition back to oral prednisone therapy and discharge to [facility] with ongoing therapies. #2. Questionable Acute Complicated Urinary Tract Infection, RULED OUT: UA upon ED evaluation mildly remarkable, 10/26/2024 urine culture resulted without growth, will de-escalate off IV Rocephin. #3. CAD: Status post notable PCI intervention, continued on Plavix therapy especially given history of previous GI bleed, #4. Chronic normocytic anemia/iron deficiency anemia: Admission hemoglobin 9.6, MCV 85.8, baseline hemoglobin primarily 9-10, stable, continue to trend. Continue oral iron supplementation. 10/27/24 hemoglobin 10.1, MCV 84. #5. History sick sinus syndrome: Status post pacemaker placement per Dr. Hua, encourage continued outpatient follow-up with cardiology as previously arranged. #6. Known Hyperparathyroidism with hypercalcemia: Admission BMP with calcium 12.0, near baseline, will continue Cinacalcet regimen, encourage continued outpatient follow-up as previously arranged. 10/24/2024 parathyroid hormone 155. 10/26/2024 calcium 11.9-> 10/27/2024 calcium 12.3. Will encourage follow-up outpatient with endocrinology at discharge. #7. PAF: We will continue patient home metoprolol regimen, maintained on Plavix, not chronically anticoagulated secondary to history of GI bleed. #8. Diabetes mellitus type II: 10/24/24 HgBA1c 7.1%, hold oral home regimen, continue home insulin regimen, ADA diet, accu checks w/ ISS. #9. Anxiety and depression: Will continue patient home Paxil regimen. #10. Chronic Kidney Disease Stage III, unclear subtype: Admission BUN/Cr 34/1.88, GFR 39, baseline renal function primarily 1.8-2.3 per recent trending, 10/27/24 BUN/creatinine 36/2.06, GFR 35. Will request a repeat BMP at nursing facility transition. #11. Hypertension: Continue home regimen hydralazine, spironolactone, metoprolol with hold parameters as needed, PRN hydralazine. As noted above plan transition off of Lasix drip back to oral home regimen with [facility] facility transition. #12. Hyperlipidemia: Will continue home fenofibrate regimen, not on statin therapy as not tolerated. FLP with triglycerides 143, total cholesterol 139, LDL 90, VLDL 29, HDL 21. #13. Obesity: Weight loss and lifestyle changes encouraged. #14. GERD with history of GI bleed: Will continue patient on PPI and sucralfate. #15. BPH with obstructive pathology: Will continue patient home Flomax regimen, monitor for retention. #16. FAVIAN: BIPAP nightly. #17. DVT prophylaxis: SCDs, upon presentation chemoprophylaxis deferred given history of recurrent GI bleeds. #18. CODE status: Full Code status. Charges/Coding Visit Charges Inpatient E&M: 32150 Subs Hosp L2
[2024-10-27 07:07] LABS: AST(SGOT) 22 U/L (<=37); Alanine Aminotransfer ALT/SGPT 11 U/L (<=46); Albumin, Serum 4.0 g/dL (3.4-4.8); Alkaline Phosphatase 66 U/L (40-129); Anion Gap 12 (5-15); BUN 36 mg/dL (4-19); BUN/Creat Ratio 17.5 RATIO (10-20); Calcium,Total 12.3 mg/dL (7.6-11.0); Carbon Dioxide 30.5 mmol/L (21.0-32.0); Chloride 98 mmol/L (98-108); Estimated Creatinine Clearance 45.06 ml/min (50-250); Globulin 3.3 g/dL (2.2-4.2); Glucose 155 mg/dL (70-99); Potassium 3.7 mmol/L (3.3-5.1)
[2024-10-27] MEDS: Albuterol 2.5 MG/3 ML VIAL.NEB. INHALATION (07:50)
[2024-10-27] MEDS: Budesonide Respules 0.5 MG/2 ML AMPUL.NEB. 1 MG INHALATION (07:51)
[2024-10-27] MEDS: Potassium Chloride Oral Tablet 20 MEQ PO (08:13)
[2024-10-27] MEDS: Lactobacillis Acidophilus 1 CAP PO (08:13)
[2024-10-27] MEDS: Cholecalciferol (VIT D3) 25 MCG TABLET (1,000 UNITS) 100 MCG PO (08:15)
[2024-10-27] MEDS: Metoprolol(XL)Succ 50 MG Tablet PO (08:16)
[2024-10-27] MEDS: Furosemide 500 MG in Empty Viaflex 50 mL 1 EACH CONT INF (08:40)
--- NOTE | 2024-10-27 11:03 | DS.PCM_ITS ---
Providers Date of Admission: 10/24/24 Date of Discharge: 10/27/24 Primary Care Physician: Dr. Hank Negrete MD Reason For Visit: AE OF CHRONIC DIASTOLIC CHF Diagnosis Discharge Diagnosis (1) Osteoarthritis: Status: Chronic (2) Chronic pain: Status: Chronic Code(s): G89.29 - Other chronic pain Plan: DISCHARGE DIAGNOSES: #1. Acute on Chronic Hypoxic Respiratory Failure secondary to Acutely Decompensated HFpEF with chronic bilateral lower extremity lymphedema/venous stasis disease with chronically elevated cardiac troponin suspected secondary to demand ischemia/hypoxia #2. Questionable Acute Complicated Urinary Tract Infection, RULED OUT #3. CAD Status post notable PCI intervention #4. Chronic normocytic anemia/iron deficiency anemia (baseline hemoglobin primarily 9-10) #5. History sick sinus syndrome, Status post pacemaker placement #6. Known Hyperparathyroidism with hypercalcemia #7. PAF #8. Diabetes mellitus type II #9. Anxiety and depression #10. Chronic Kidney Disease Stage III, unclear subtype (baseline renal function primarily 1.8-2.3) #11. Hypertension #12. Hyperlipidemia #13. Obesity #14. GERD with history of GI bleed #15. BPH with obstructive pathology #16. FAVIAN on BIPAP nightly. #17. CODE status: Full Code status. Medications at Discharge Home Medications ranolazine 500 mg tablet,extended release,12 hr 500 mg PO BID chest pain #180 tabs 12/20/22 ferrous sulfate 325 mg (65 mg iron) tablet 325 mg PO DAILY supplement #90 tabs 05/19/23 paroxetine HCl 40 mg tablet 40 mg PO DAILY mood #30 tabs 05/19/23 pantoprazole 40 mg tablet,delayed release 40 mg PO DAILY GI #90 tabs 06/01/23 metoprolol succinate 50 mg tablet,extended release 24 hr 50 mg PO Q12H blood pressure #60 tabs 06/12/23 sucralfate 1 gram tablet 1 g PO 1HR_ACHS GERD #0 tabs 07/31/23 bisacodyl 10 mg rectal suppository 10 mg SC DAILY PRN constipation 08/08/23 insulin lispro 100 unit/mL subcutaneous solution (Humalog U-100 Insulin) 1 sliding scale dose subcut USEASDIRECTD SS 08/08/23 magnesium hydroxide 400 mg/5 mL oral suspension (Milk of Magnesia) 30 ml PO DAILY PRN constipation 08/08/23 mineral oil (Fleet Mineral Oil enema) 118 ml SC DAILY PRN constipation 08/08/23 hydralazine 100 mg tablet 100 mg PO TID Hypertension #270 tabs 02/21/24 cholecalciferol (vitamin D3) 50 mcg (2,000 unit) capsule 100 mcg PO QDAY supplement 03/15/24 clopidogrel 75 mg tablet 75 mg PO QDAY Anticoagulant 03/15/24 nebulizer kits #1 ea 03/15/24 nebulizer machine #1 ea 03/15/24 semaglutide 1 mg/dose (4 mg/3 mL) subcutaneous pen injector (Ozempic) 1 mg subcut FR DM 03/15/24 therapeutic multivitamin 1 tab PO QAM health 03/15/24 budesonide 1 mg/2 mL suspension for nebulization 1 mg (2 mL) inhalation BID COPD #120 mL 05/03/24 insulin glargine 100 unit/mL (3 mL) subcutaneous pen (Lantus Solostar U-100 Insulin) 33 unit subcut QAM Long acting Insulin 07/22/24 insulin lispro 100 unit/mL subcutaneous pen 5 unit subcut 0800 Glucose Control 07/22/24 insulin lispro 100 unit/mL subcutaneous pen 6 unit subcut 1200 Glucose Control 07/22/24 insulin lispro 100 unit/mL subcutaneous pen 8 unit subcut 1800 Glucose Control 07/22/24 acetaminophen 500 mg tablet 1,000 mg PO Q8H PRN pain 08/01/24 albuterol sulfate 2.5 mg/3 mL (0.083 %) solution for nebulization 2.5 mg inhalation BID PRN shortness of breath or wheezing 08/01/24 ammonium lactate 5 % lotion 1 applic topical QD-BID PRN dry skin 08/01/24 cinacalcet 30 mg tablet 30 mg PO BID supplement 08/01/24 fenofibrate nanocrystallized 145 mg tablet 145 mg PO DAILY 08/15/24 furosemide 40 mg tablet 60 mg PO QDAY water pill 08/15/24 potassium chloride 20 mEq tablet,extended release(part/cryst) 20 meq PO QDAY Supplement #0 tabs 08/15/24 spironolactone 25 mg tablet 25 mg PO DAILY #1 TAB 08/15/24 Lactobacillus rhamnosus GG 10 billion cell capsule (Culturelle) 1 cap PO BID 09/03/24 tamsulosin 0.4 mg capsule 0.4 mg PO QHS 10/24/24 oxycodone 5 mg tablet 5 mg PO Q6H PRN Pain Score 6-10 5 days #10 tabs 10/27/24 oxycodone 5 mg tablet,oral ONLY (not feeding tubes) (RoxyBond) 5 mg PO 0600 pain 5 days #5 ea 10/27/24 Hospital Course Operations None Procedures EKG Summary of Care Provided Minutes Spent on Discharge: 35 Hospital Course: The patient is a 67 y/o M w/ PMHx: Hx SSS s/p pacemaker status, Hyperparathyroidism with hypercalcemia, CKD stage III unclear subtype, Chronic normocytic anemia/iron deficiency anemia, Anxiety and Depression, CAD s/p PCI, Asthma, Hx VTE (DVT, PE), HTN, HLD, FAVIAN, Seizure disorder, Diabetes mellitus type II, PAF, HFpEF who presented to the [facility] ED on 10/24/2024 with history of notably worsening dyspnea. Admitted to PCU, maintain on cardiac telemetry, obtain serial EKGs, continue initially on IV lasix diuresis, monitor I/Os, maintain on intake restriction, continue medical therapy including Plavix, fenofibrate now on statin therapy, hydralazine, metoprolol, Ranexa, spironolactone in addition to IV Lasix as noted, not on LUCIAN/ARB likely secondary to underlying renal disease, cardiac enzyme trending with initial 199 > 122--> 120 similar to previous chronically elevated troponin levels, TSH 2.090, magnesium 2.0, most recent echocardiogram noted 08/09/2024 with EF 55 to 60%, overall normal LV systolic function, moderate MR, mild to moderate TR, dilated IVC, no change from previous echocardiogram thus deferred repeat. 10/26/2024 given patient's symptoms we will transition to IV Lasix drip and transition off pulsed dose Lasix. UA upon ED evaluation mildly remarkable, 10/26/2024 urine culture resulted without growth, de-escalated off IV Rocephin. Admission hemoglobin 9.6, MCV 85.8, baseline hemoglobin primarily 9-10. Continued oral iron supplementation. 10/27/24 hemoglobin 10.1, MCV 84. Admission BMP with calcium 12.0, near baseline, continued Cinacalcet regimen. 10/24/2024 parathyroid hormone 155. 10/26/2024 calcium 11.9-> 10/27/2024 calcium 12.3. Requested follow-up outpatient with endocrinology at discharge. Admission BUN/Cr 34/1.88, GFR 39, baseline renal function primarily 1.8-2.3 per recent trending, 10/27/24 BUN/creatinine 36/2.06, GFR 35. Requested repeat BMP in 1 week at SNF transition. 10/25/24 269 lbs->10/26/2024 263 lbs-> 10/27/2024 250 pounds. 10/27/2024 given clinical improvement, resolution of symptoms and appropriate weight loss/fluid removal transitioned back to oral prednisone therapy with discharge to [facility] facility with ongoing therapies. Patient discharged to SNF in improved condition with PCP/SNF physician, cardiology and endocrinology follow- up recommendations. Weight / BMI Weight Weight: 250 lb 7.122 oz Body Mass Index (BMI) 35.9 ABG / Lab / Microbiology Data 10/27/24 05:44 10/27/24 05:44 Laboratory: Laboratory Results - last 24 hr 10/26/24 11:32: POC Glucose 163 H 10/26/24 16:17: POC Glucose 189 H 10/26/24 22:08: POC Glucose 230 H 10/27/24 05:44: WBC 8.5, RBC 3.93 L, Hgb 10.1 L, Hct 33.0 L, MCV 84.0, MCH 25.7 L, MCHC 30.6 L, RDW Std Deviation 53.3 H, RDW Coeff of Thao 17.4 H, Plt Count 322, MPV 9.5, Immature Gran % (Auto) 0.800, Neut % (Auto) 79.9 H, Lymph % (Auto) 3.9 L, [place] % (Auto) 12.9 H, Eos % (Auto) 1.9, Baso % (Auto) 0.6, Absolute Neuts (auto) 6.8, Absolute Lymphs (auto) 0.33 L, Nucleated RBC % 0, Sodium 141, Potassium 3.7, Chloride 98, Carbon Dioxide 30.5, Anion Gap 12, BUN 36 H, C reatinine 2.06 H, Estim Creat Clear Calc 45.06 L, Est GFR (MDRD) Non-Af 35 L, BUN/Creatinine Ratio 17.5, Glucose 155 H, Calcium 12.3 H, Total Bilirubin 0.83, AST 22, ALT 11, Alkaline Phosphatase 66, Total Protein 7.3, Albumin 4.0, Globulin 3.3, Albumin/Globulin Ratio 1.2 10/27/24 08:10: POC Glucose 160 H Microbiology: Microbiology 10/24/24 21:19 Urine, Random Urine Culture - Final Mixed Gram Positive Organisms D/C Instructions DC O2, CPAP, BIPAP Needs Home O2 Discharge instructions: Yes Type of respiratory needs?: Oxygen Oxygen frequency: Continuous (2) Continuous oxygen liters per minute: 2 and BiPAP BiPAP instructions: q HS DC home with Oxygen: Yes Home O2 MD Review: I have reviewed the oxygen testing, and the patient qualifies for home oxygen equipment and portability. The patient is mobile in the home and the community. Meaningful Use Info Meaningful Use Meaningful Use Diagnoses (Choose all that apply): CHF CHF LUCIAN/ARB ordered at discharge?: No Reason LUCIAN/ARB not ordered?: Worsening renal disease Documented LVEF (%): 55 Discharge Plan Admission Admit Date/Time: 10/24/24 19:50 Primary Reason for Your Visit: Acute on Chronic Hypoxial, HFpEF Exacerbation, UTI RULED OUT Attending Provider: Purvi Jensen Primary Care Provider: Hnak Negrete Consulting Providers: Ryan Noel Instructions Patient Instructions: Heart Failure Flare Up Signs, Coping with Heart Failure, Heart Failure Make Changes Diet Additional Instructions / Restrictions: DISCHARGE REVIEW/PLAN OF CARE: #1. Acute on Chronic Hypoxic Respiratory Failure secondary to Acutely Decompensated HFpEF with chronic bilateral lower extremity lymphedema/venous stasis disease with chronically elevated cardiac troponin suspected secondary to demand ischemia/hypoxia: --Cardiac enzyme trending with initial 199 > 122--> 120 similar to previous chronically elevated troponin levels. --TSH 2.090, magnesium 2.0. --Most recent echocardiogram noted 08/09/2024 with EF 55 to 60%, overall normal LV systolic function, moderate MR, mild to moderate TR, dilated IVC, no change from previous echocardiogram thus deferred repeat. --Treated with initially pulse dose lasix, 10/26/24 transitioned to a continuous lasix drip and at discharge transitioned back to oral regimen. --Weight at hospital discharge 250 lb 7.122 oz. Please continue to obtain daily weights and if your weight increases by more than 5 pounds immediately contact the cardiology office/primary care physician to ascertain if additional pulsed dose Lasix is necessary. --Please continue bilateral lower extremity SNUG lucian wraps to BL LE, toes to knee, overlapping, no skin showing, redo q shift and PRN if comes undone in addition to bilateral lower extremity elevation above heart when seated and in bed. --AVOID sleeping in chair and stronly encourage patient sleep in bed nightly. #2. Questionable Acute Complicated Urinary Tract Infection, RULED OUT: --UA upon ED evaluation mildly remarkable, 10/26/2024 urine culture resulted without growth, will de-escalate off IV Rocephin. #3. Chronic normocytic anemia/iron deficiency anemia: --Admission hemoglobin 9.6, MCV 85.8, baseline hemoglobin primarily 9-10, 10/27/24 hemoglobin 10.1, MCV 84. Plan to have repeat complete blood count in 1 week at the SNF. #4. Known Hyperparathyroidism with hypercalcemia: --Admission BMP with calcium 12.0 (baseline lower 12 range), continues Cinacalcet regimen, 10/24/2024 parathyroid hormone 155. 10/27/2024 calcium 12.3. --Please follow-up with Dr. Urias, endocrinology at discharge as requested. #5. Chronic Kidney Disease Stage III, unclear subtype: --Admission BUN/Cr 34/1.88, GFR 39, baseline renal function primarily 1.8-2.3 per recent trending, 10/27/24 BUN/creatinine 36/2.06, GFR 35. --Please have repeat BMP at nursing facility transition in 1 week given recent lasix drip/IV lasix usage. Discharge Orders/Prescriptions Prescriptions: Continued mineral oil [Fleet Mineral Oil] Enema 118 ml SC DAILY PRN (Reason: constipation) Rx Instructions: discard any unused portion magnesium hydroxide [Milk of Magnesia] 400 mg/5 mL suspension 30 ml PO DAILY PRN (Reason: constipation) bisacodyl 10 mg suppository 10 mg SC DAILY PRN (Reason: constipation) insulin lispro [Humalog U-100 Insulin] 100 unit/mL solution 1 sliding scale dose subcut USEASDIRECTD Rx Instructions: 200-250 5 units 251-300 8 units 301-350 12 units Use IM before meals and at bedtime for DM clopidogrel 75 mg tablet 75 mg PO QDAY therapeutic multivitamin Tablet 1 tab PO QAM cholecalciferol (vitamin D3) 50 mcg (2,000 unit) capsule 100 mcg PO QDAY Ozempic 1 mg/dose (4 mg/3 mL) pen injector 1 mg subcut FR Patient Comments: Taking every monday (DME) nebulizer kits See Rx Instructions .Route .MEDSUPPLY Qty: 1 11RF Rx Instructions: As directed (DME) nebulizer machine See Rx Instructions .Route .MEDSUPPLY Qty: 1 0RF Rx Instructions: As directed insulin glargine [Lantus Solostar U-100 Insulin] 100 unit/mL (3 mL) insulin pen 33 unit subcut QAM cinacalcet 30 mg tablet 30 mg PO BID budesonide 1 mg/2 mL suspension for nebulization 1 mg inhalation BID Qty: 120 6RF acetaminophen 500 mg tablet 1,000 mg PO Q8H PRN (Reason: pain) albuterol sulfate 2.5 mg /3 mL (0.083 %) solution for nebulization 2.5 mg inhalation BID PRN (Reason: shortness of breath or wheezing) ammonium lactate 5 % lotion 1 applic topical QD-BID PRN (Reason: dry skin) insulin lispro 100 unit/mL insulin pen 5 unit subcut 0800 Patient Comments: With Breakfast insulin lispro 100 unit/mL insulin pen 8 unit subcut 1800 Patient Comments: With dinner insulin lispro 100 unit/mL insulin pen 6 unit subcut 1200 Patient Comments: With Lunch fenofibrate nanocrystallized 145 mg tablet 145 mg PO DAILY furosemide 40 mg tablet 60 mg PO QDAY spironolactone 25 mg tablet 25 mg PO DAILY Qty: 1 0RF potassium chloride 20 mEq tablet,ER particles/crystals 20 meq PO QDAY Qty: 0 0RF Culturelle 10 billion cell capsule 1 cap PO BID tamsulosin 0.4 mg capsule 0.4 mg PO QHS oxycodone 5 mg tablet 5 mg PO Q6H PRN (Reason: Pain Score 6-10) 5 Days Qty: 10 0RF oxycodone [RoxyBond] 5 mg tablet, oral only 5 mg PO 0600 5 Days Qty: 5 0RF sucralfate 1 gram Tablet 1 g PO 1HR_ACHS Qty: 0 0RF ranolazine 500 mg tablet extended release 12 hr 500 mg PO BID Qty: 180 3RF ferrous sulfate 325 mg (65 mg iron) tablet 325 mg PO DAILY Qty: 90 1RF paroxetine HCl 40 mg tablet 40 mg PO DAILY Qty: 30 1RF pantoprazole 40 mg tablet,delayed release (DR/EC) 40 mg PO DAILY Qty: 90 1RF metoprolol succinate 50 mg tablet extended release 24 hr 50 mg PO Q12H Qty: 60 11RF hydralazine 100 mg tablet 100 mg PO TID Qty: 270 3RF Referrals / Follow Up: Hank Negrete MD [Primary Care Provider] - (Follow-up with PCP at SNF within 1- 2 days of transition.) Vishnu Urias MD [Med Staff - Courtesy Staff] - (Please follow-up and establish for ongoing evaluation of parathyroid disease. Please take first open visit, may see [employer]ENDER/PA.) Stephanie Schultz PA [Med Staff - Adv Practice Prof] - (Please follow-up within 1-2 weeks for re-evaluation following recent admission.) Disposition Disposition (needs filled in before D/C Order can be placed): [facility] Facility Charges/Coding Visit Charges Inpatient E&M: 20310 Disch Hosp >30min
[2024-10-27] MEDS: Insulin Glargine-YFGN 100 UNIT/ML Pen 23 UNIT SC (11:29)
--- NOTE | 2024-10-27 12:15 | NURSING ---
Report given to nurse Cruz from [facility] via phone at 12:15.
== END 2024-10-27 12:18 | DRG 291 ==
LOC: ED 19:25 → PCU 20:05
PROVIDERS: Physician Assistant; Admitting Provider Internal Medicine; Emergency Provider Surgery; PCP Family Medicine; Referring Provider Surgery; Visit Provider Family Medicine
DX: I13.0 Hypertensive heart and chronic kidney disease with heart failure and stage 1 through stage 4 chronic kidney disease, or unspecified chronic kidney disease (principal); J96.21 Acute and chronic respiratory failure with hypoxia; I50.33 Acute on chronic diastolic (congestive) heart failure; I24.89 Other forms of acute ischemic heart disease; N13.8 Other obstructive and reflux uropathy; E11.22 Type 2 diabetes mellitus with diabetic chronic kidney disease; D50.9 Iron deficiency anemia, unspecified; I49.5 Sick sinus syndrome; Z99.81 Dependence on supplemental oxygen; J44.9 Chronic obstructive pulmonary disease, unspecified; N18.30 Chronic kidney disease, stage 3 unspecified; I34.0 Nonrheumatic mitral (valve) insufficiency; E66.812 Obesity, class 2; E11.43 Type 2 diabetes mellitus with diabetic autonomic (poly)neuropathy; E78.5 Hyperlipidemia, unspecified; K31.84 Gastroparesis; I48.0 Paroxysmal atrial fibrillation; G47.33 Obstructive sleep apnea (adult) (pediatric); Z79.4 Long term (current) use of insulin; E11.51 Type 2 diabetes mellitus with diabetic peripheral angiopathy without gangrene; F41.8 Other specified anxiety disorders; K21.9 Gastro-esophageal reflux disease without esophagitis; I25.10 Atherosclerotic heart disease of native coronary artery without angina pectoris; E55.9 Vitamin D deficiency, unspecified; M17.0 Bilateral primary osteoarthritis of knee; I35.1 Nonrheumatic aortic (valve) insufficiency; M47.816 Spondylosis without myelopathy or radiculopathy, lumbar region; I89.0 Lymphedema, not elsewhere classified; I87.2 Venous insufficiency (chronic) (peripheral); E21.3 Hyperparathyroidism, unspecified; S31.811A Laceration without foreign body of right buttock, initial encounter; N40.1 Benign prostatic hyperplasia with lower urinary tract symptoms; X58.XXXA Exposure to other specified factors, initial encounter; I49.3 Ventricular premature depolarization; G89.29 Other chronic pain; Z95.0 Presence of cardiac pacemaker; Z95.5 Presence of coronary angioplasty implant and graft; Z87.19 Personal history of other diseases of the digestive system; Z86.711 Personal history of pulmonary embolism; Z86.718 Personal history of other venous thrombosis and embolism; Z79.02 Long term (current) use of antithrombotics/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; Z79.85 Long-term (current) use of injectable non-insulin antidiabetic drugs; Z79.899 Other long term (current) drug therapy; Z68.38 Body mass index [BMI] 38.0-38.9, adult; Z87.11 Personal history of peptic ulcer disease; Z86.69 Personal history of other diseases of the nervous system and sense organs
CPT/HCPCS: 36415; 71045; 80048; 80053; 80061; 81001; 82962; 83036; 83735; 83880; 83970; 84100; 84443; 84484; 85025; 87086; 87088; 93005; 94002; 94003; 94640; 94762; 97116; 97162; 97530; 97802; 99285; A4216; J1938; J2405